=== PATIENT | male | born 1960 | race Caucasian/White ===

== ENCOUNTER 2024-04-01 10:38 | Emergency (ER) | payer OTHER, SELFPAY ==
[2024-04-01 10:45] VITALS: BP 160/100; PULSE 80; TEMP 37; O2SAT 93; BMI 26.4
--- NOTE | 2024-04-01 11:33 | ED_ITS ---
HPI HPI - Neck Pain/Injury General Chief Complaint: Neck Pain/Injury Stated Complaint: NECK PAIN Time Seen by Provider: 04/01/24 11:30 Source: patient Mode of arrival: walk-in Limitations: no limitations History of Present Illness HPI Narrative: 63-year-old male presents to the emergency department for neck pain. Its on the left side and has had it for 4 days. 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 No weakness or numbness in his arms. It hurts more to turn his head towards the left. Related Data Home Medications ?Medication ?Instructions ?Recorded ?Confirmed Unobtainable 04/01/24 04/01/24 Allergies Allergy/AdvReac Type Severity Reaction Status Date / Time No Known Drug Allergies Allergy Verified 04/01/24 10:45 Opioid HPI Opioid Management Most Recent Opioid Data: Last Pain Scale 4 04/01/24 12:20 Last ED Pain Assessment 04/01/24 12:20 Last MAR Pain Assessment 04/01/24 11:54 Review of Systems ROS Narrative A ten point review of systems is negative except as noted above. Exam Narrative Exam Narrative: Nurses note and vital signs reviewed and patient is not hypoxic. General: The patient appears well and in no apparent distress. Patient is resting comfortably on cart. Skin: Warm, dry, no pallor noted. There is no rash noted. Head: Normocephalic, atraumatic; no masses bruising or swelling or rash on his neck. Eye: Normal conjunctiva, no drainage Ears, Nose, Mouth, and Throat: oral mucosa is moist. Nares patent. Cardiovascular: Regular Rate and Rhythm Respiratory: Patient is in no distress, no accessory muscle use, lungs are clear to auscultation, no wheezing, rales or rhonchi Back: non-tender GI: Soft and nontender Musculoskeletal: The patient has no evidence of calf tenderness, no pitting edema, symmetrical pulses noted bilaterally Neurological: Awake and alert Psychiatric: Cooperative Constitutional Vital Signs, click to edit/add: Last Vital Signs Temp 98.6 F 04/01/24 10:45 Pulse 80 04/01/24 10:45 Resp 16 04/01/24 10:45 BP 160/100 H 04/01/24 10:45 Pulse Ox 93 L 04/01/24 10:45 O2 Del Method Room Air 04/01/24 10:45 Course Vital Signs Vital signs: Vital Signs Temperature 98.6 F 04/01/24 10:45 Pulse Rate 80 04/01/24 10:45 Respiratory Rate 16 04/01/24 10:45 Blood Pressure 160/100 H 04/01/24 10:45 Pulse Oximetry 93 L 04/01/24 10:45 Oxygen Delivery Method Room Air 04/01/24 10:45 Temperature 98.6 F 04/01/24 10:45 Pulse Rate 80 04/01/24 10:45 Respiratory Rate 16 04/01/24 10:45 Blood Pressure 160/100 H 04/01/24 10:45 Pulse Oximetry 93 L 04/01/24 10:45 Oxygen Delivery Method Room Air 04/01/24 10:45 MDM - Neck Pain/Injury MDM Narrative Medical decision making narrative: C-spine x-rays show degenerative changes. Findings are discussed with the patient. He was given IM Toradol and Norflex here. His pain seems to be improving. He requested steroids and I do not feel that steroids are indicated for this patient. The patient got upset and he walked out without finishing his care. The intention was to prescribe him anti-inflammatory and muscle relaxer. He is on Suboxone. Differential Diagnosis Differential diagnosis: Likely disc disorder of cervical region, cervical radiculopathy and other (Muscle strain) Imaging Data Cervical spine: Radiologist's impression: ITS Impressions Cervical Spine X-Ray 04/01/24 11:33 IMPRESSION: 1. No appreciable acute abnormality. 2. Moderate degenerative changes of cervical spine. Electronically authenticated by: DORYS JORDAN Date: 04/01/2024 12:11 Discharge Plan Discharge Stand Alone Forms: Portal Instructions Chief Complaint: Neck Pain/Injury Clinical Impression: Strain of neck muscle Patient Disposition: Home, Self-Care Time of Disposition Decision: 12:21 Condition: Good Mode of Transportation: Private Vehicle Prescriptions / Home Meds: No Action Unobtainable Print Language: Turkish Instructions: Cervical Sprain (ED) Referrals: Physician,Non-Staff, MD [Primary Care Provider] - 1 week
--- NOTE | 2024-04-01 11:33 | XR_ITS ---
The [address] [address] Patient Name: AARON OLIVAREZ MRN: [id number] date: 1960 Sex: M Assigned Patient Location: ER Current Patient Location: ER Accession/Order Number: [id number] Exam Date: 04/01/2024 11:45 Report Date: 04/01/2024 12:11 At the request of: ELEANOR BOYD Procedure: XR cervical spine 2-3V EXAMINATION: XR cervical spine 2-3V HISTORY: Atraumatic pain for 4 days ; left side neck pain COMPARISON: No relevant comparison available. FINDINGS: BONES: No fracture, spondylolisthesis, bone lesion. Mild-moderate degenerative facet arthropathy C4-5, C5-6. DISC SPACES: Mild narrowing C2 on 3. Moderate narrowing C3-4, C4-5. PARASPINOUS: Negative. No paraspinous abnormality is seen. OTHER: Negative. XR/XR cervical spine 2-3V IMPRESSION: 1. No appreciable acute abnormality. 2. Moderate degenerative changes of cervical spine. Electronically authenticated by: DORYS JORDAN Date: 04/01/2024 12:11
[2024-04-01] MEDS: ORPHENADRINE 60 MG/ 2 ML VIAL IM (11:54)
[2024-04-01] MEDS: KETOROLAC TROMETHAMINE 60 MG/2 ML VIAL IM (11:54)
== END 2024-04-01 12:26 | disposition home or self-care (01) ==
PROVIDERS: Emergency Provider Emergency Medicine
DX: S16.1XXA Strain of muscle, fascia and tendon at neck level, initial encounter (principal); X58.XXXA Exposure to other specified factors, initial encounter
CPT/HCPCS: 72040; 96372; 99284

== ENCOUNTER 2024-05-01 12:14 | Emergency (ER) | payer MEDICARE, SELFPAY ==
[2024-05-01] VITALS (58 sets, daily range): BP systolic 133–203; BP diastolic 78–103; PULSE 69–102; RESP 16; TEMP 36.4; O2SAT 55–100
--- NOTE | 2024-05-01 12:39 | ECG_ITS ---
The [facility] Test Date: 2024-05-01 Pat Name: AARON OLIVAREZ Department: Room: - Gender: Male Medical Sales Associate: : 1960 Requested By: Order Number: [id number] Reading MD: LEVY SANABRIA Measurements Intervals [place] Rate: 93 P: 85 PA: 158 QRS: 74 QRSD: 80 T: 73 QT: 354 QTc: 405 Interpretive Statements 1100 Sinus rhythm Chronic moderate ST depression, can't exclude inferolateral ischemia 9150 abnormal ECG Electronically Signed On 05-01-2024 22:35:12 EDT by LEVY SANABRIA
--- NOTE | 2024-05-01 12:39 | XR_ITS ---
The [address] [address] Patient Name: AARON OLIVAREZ MRN: [id number] date: 1960 Sex: M Assigned Patient Location: ED.MAIN Current Patient Location: ER Accession/Order Number: [id number] Exam Date: 05/01/2024 13:40 Report Date: 05/01/2024 14:14 At the request of: REZA BARR Procedure: XR chest 1V EXAMINATION: XR chest 1V HISTORY: shortness of breath COMPARISON: XR chest 10/06/2021 FINDINGS: LUNGS: Underexpanded lungs with mild stranding within lung bases. VASCULATURE: No increased pulmonary vasculature. PLEURA: No pneumothorax, effusion, or pleural thickening. CARDIAC: No cardiomegaly or cardiac silhouette abnormality. MEDIASTINUM: No visible mass or adenopathy. BONES: No fracture or visible bone lesion. OTHER: Negative. XR/XR chest 1V IMPRESSION: 1. Trace amount of bibasilar atelectasis versus infiltrates. Electronically authenticated by: DORYS JORDAN Date: 05/01/2024 14:14
--- OUTSIDE RECORDS SUMMARY | 2024-05-01 12:40 | XMS_ITS | CCD ---
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 10-04-20 17 Discharge Summary [id number] Admitted: 10/01/2017 Discharged: 10/03/2017 Date of : 1960 Physician: Vu Jimenes M.D. DISCHARGE SUMMARYCHIEF COMPLAINT: Opioid use.HISTORY OF PRESENT ILLNESS: The patient is a 57-year-old male[facility] use. The patientadmitted to using around dollar 100 worth for heroin on a daily basis bysnorting it. Reported significant tolerance withdrawal symptoms over theyears with multiple unsuccessful attempts to cutdown or stop using drugs.Report significant time spent in getting drugs, using drugs, and recoveringfrom the effect of drugs.COURSE IN THE HOSPITAL: Reported withdrawal symptoms, which includedmuscle aches, diarrhea, abdominal cramps, nausea, hot sweats, cold sweats,chills. Responded well to Suboxone and withdrawal symptoms seem moremanageable. During stay in hospital, underwent psychiatric evaluation,medical consultation, attended individual therapy and groups. Labs done.Results shared with the patient. No acute psychiatric or medical emergencyseen during hospital stay.FINAL MENTAL STATUS EXAMINATION: The patient reported to be calm,cooperative. Gait, stable. Speech coherent. Mood euthymic. Affect,appropriate. Thought process and content okay. No evidence of anypsychosis or current suicidal or homicidal ideation.DISCHARGE DIAGNOSIS: Opioid use disorder.MEDICATION ON DISCHARGE: Suboxone 16/4 mg in the morning, a 10-day supply,no refill.The patient made aware of high risk of relapse after discharge from detox,especially if outpatient treatment is lacking. Given all assistance tosocial work to make followup appointments.Electronically Signed by:Vu Jimenes M.D. 10/16/2017 08:49 A Vu Jimenes M.D.Date Dict: 10/03/2017/04:30 P/Vu Jimenes M.D.Date Trans: 10/04/2017 12:30 [id number] Normal [facility] CHOLESTEROL BLOODon 10-02-20 17 Cholesterol 187 mg/dL Normal 120-200 [facility] Comment on above: Order Comment: No: D o not add to previous draw Result Comment: CHOL ESTEROL REFERENCE RANGE:20 YEARS AND OLDER CARDIOVASCULAR RISKLess than 200 mg/dl Low Xiqw755 to 239 mg/dl Borderline Erxj541 mg/dl and greater High Risk Performed By: #### 2 9773, [address], [address], [address], [address], [address], [address] ####[facility] [facility] Coding Summaryon 10-02-2017 Coding Summary CODING DATE: 017 FINAL [facility] STATUS: Home PAYOR: Medicare APC DESCRIPTION 5023 Level 3 Type A ED Visits ADMIT DX: REASON FOR VISIT DX: F11.23 Opioid dependence with withdrawal FINAL DX: PRINCIPAL: F11.23 Opioid dependence with withdrawal SECONDARY: PYMT PROC APC STAT DESCRIPTION DOCTOR NAME DATE NOTE: The code number assigned matches the documented diagnosis and / or procedure in the patient's chart. However, the narrative phrase printed from the coding software may appear abbreviated, or result in slightly different terminology. Revised Coded By: Prasanth Yen' Revised Date Saved: 10/02/2017 01:29 pm Normal [facility] TOX PANEL URINEon 10-02-2017 50 THC Negative Normal NEGATIVE [facility] Comment on above: Order Comment: No: D o not add to previous drawNo collection time noted on specimen or requisition. The collection timerecorded is the time of receipt in the lab. Performed By: #### 3 1079 ####[facility] [place] [address], [facility] BARBITURATES Negative Normal NEGATIVE [facility] Comment on above: Order Comment: No: D o not add to previous drawNo collection time noted on specimen or requisition. The collection timerecorded is the time of receipt in the lab. Performed By: #### 3 1079 ####[facility] [place] [address], [facility] MONO AMPHET Negative Normal NEGATIVE [facility] Comment on above: Order Comment: No: D o not add to previous drawNo collection time noted on specimen or requisition. The collection timerecorded is the time of receipt in the lab. Performed By: #### 3 1079 ####[facility] [place] [address], [facility] PROPOXYPHENE Negative Normal NEGATIVE [facility] Comment on above: Order Comment: No: D o not add to previous drawNo collection time noted on specimen or requisition. The collection timerecorded is the time of receipt in the lab. Performed By: #### 3 1079 ####[facility] [place] [address], [facility] TRICYCLICS Negative Normal NEGATIVE [facility] Comment on above: Order Comment: No: D o not add to previous drawNo collection time noted on specimen or requisition. The collection timerecorded is the time of receipt in the lab. Performed By: #### 3 1079 ####[facility] [place] [address], [facility] Urine, benzodiazepines presence Negative Normal NEGATIVE [facility] Comment on above: Order Comment: No: D o not add to previous drawNo collection time noted on specimen or requisition. The collection timerecorded is the time of receipt in the lab. Performed By: #### 3 1079 ####[facility] [place] [address], [facility] Urine, cocaine presence Positive Abnormal NEGATIVE [facility] Comment on above: Order Comment: No: D o not add to previous drawNo collection time noted on specimen or requisition. The collection timerecorded is the time of receipt in the lab. Performed By: #### 3 1079 ####[facility] [place] [address], [place] Urine, methadone presence Negative Normal NEGATIVE [facility] Comment on above: Order Comment: No: D o not add to previous drawNo collection time noted on specimen or requisition. The collection timerecorded is the time of receipt in the lab. Performed By: #### 3 1079 ####[facility] [facility] [place] [address], [facility] Urine, opiates presence Positive Abnormal NEGATIVE [facility] Comment on above: Order Comment: No: D o not add to previous drawNo collection time noted on specimen or requisition. The collection timerecorded is the time of receipt in the lab. Performed By: #### 3 1079 ####[facility] [place] [address], [facility] Urine, phencyclidine presence Negative Normal NEGATIVE [facility] Comment on above: Order Comment: No: D o not add to previous drawNo collection time noted on specimen or requisition. The collection timerecorded is the time of receipt in the lab. Performed By: #### 3 1079 ####[facility] [place] [address], [facility] UA,MICROSCOPIC REQUIREDon Bilirubin (total) Negative Normal NEGATIVE [facility] Comment on above: Order Comment: No: D o not add to previous drawNo collection time noted on specimen or requisition. The collection timerecorded is the time of receipt in the lab. Performed By: #### 9 0150 ####[facility] [place] [address], [facility] BLOOD Negative Normal NEGATIVE [facility] Comment on above: Order Comment: No: D o not add to previous drawNo collection time noted on specimen or requisition. The collection timerecorded is the time of receipt in the lab. Performed By: #### 9 0150 ####[facility] [place] [address], [facility] Calcium MANY Abnormal NONE SEEN [facility] Comment on above: Order Comment: No: D o not add to previous drawNo collection time noted on specimen or requisition. The collection timerecorded is the time of receipt in the lab. Performed By: #### 9 0150 ####[facility] [place] [address], [facility] Glucose mass conc 50 mg/dL Abnormal NEGATIVE [facility] Comment on above: Order Comment: No: D o not add to previous drawNo collection time noted on specimen or requisition. The collection timerecorded is the time of receipt in the lab. Performed By: #### 9 0150 ####[facility] [place] [address], [facility] KETONE Negative Normal NEGATIVE [facility] Comment on above: Order Comment: No: D o not add to previous drawNo collection time noted on specimen or requisition. The collection timerecorded is the time of receipt in the lab. Performed By: #### 9 0150 ####[facility] [place] [address], [facility] LEUK WESTLEY Negative Normal NEGATIVE [facility] Comment on above: Order Comment: No: D o not add to previous drawNo collection time noted on specimen or requisition. The collection timerecorded is the time of receipt in the lab. Performed By: #### 9 0150 ####[facility] [place] [address], [facility] MUCUS THREADS FEW Abnormal NONE SEEN [facility] Comment on above: Order Comment: No: D o not add to previous drawNo collection time noted on specimen or requisition. The collection timerecorded is the time of receipt in the lab. Performed By: #### 9 0150 ####[facility] [place] [address], [facility] pH of blood 5.0 [pH] Normal 5.0-8.0 [facility] Comment on above: Order Comment: No: D o not add to previous drawNo collection time noted on specimen or requisition. The collection timerecorded is the time of receipt in the lab. Performed By: #### 9 0150 ####[facility] [place] [address], [facility] Protein Negative Normal NEGATIVE [facility] Comment on above: Order Comment: No: D o not add to previous drawNo collection time noted on specimen or requisition. The collection timerecorded is the time of receipt in the lab. Performed By: #### 9 0150 ####[facility] [place] [address], [facility] SPEC GRAV 1.024 High 1.015-1.020 [facility] Comment on above: Order Comment: No: D o not add to previous drawNo collection time noted on specimen or requisition. The collection timerecorded is the time of receipt in the lab. Performed By: #### 9 0150 ####[facility] [place] [address], [facility] Urine, appearance CLEAR Normal CLEAR [facility] Comment on above: Order Comment: No: D o not add to previous drawNo collection time noted on specimen or requisition. The collection timerecorded is the time of receipt in the lab. Performed By: #### 9 0150 ####[facility] [place] [address], [facility] Urine, color YELLOW Normal YELLOW [facility] Comment on above: Order Comment: No: D o not add to previous drawNo collection time noted on specimen or requisition. The collection timerecorded is the time of receipt in the lab. Performed By: #### 9 0150 ####[facility] [place] [address], [facility] Urine, nitrite presence Negative Normal NEGATIVE [facility] Comment on above: Order Comment: No: D o not add to previous drawNo collection time noted on specimen or requisition. The collection timerecorded is the time of receipt in the lab. Performed By: #### 9 0150 ####[facility] [place] [address], [facility] WBC UA 0-2 Abnormal 0-0 [facility] Comment on above: Order Comment: No: D o not add to previous drawNo collection time noted on specimen or requisition. The collection timerecorded is the time of receipt in the lab. Performed By: #### 9 0150 ####[facility] [place] [address], [facility] ACETAMINOPHENon 10-01-2017 Acetaminophen mass conc <10 Low 10-30 [facility] Comment on above: Order Comment: No: D o not add to previous draw Performed By: #### 2 9773, 46339, 417[address], , 39103, 25699, [address] ####[facility] BASIC METABOLIC PANELon 09-13 Calcium 9.3 mg/dL Normal 8.6-10.3 [facility] Comment on above: Order Comment: No: D o not add to previous draw Performed By: #### 2 9773, 06597, 85562, 64859, 82252, 84621, 44[address] ####[facility] [place] [address], [facility] Chloride 104 mmol/L Normal 98-107 [facility] Comment on above: Order Comment: No: D o not add to previous draw Performed By: #### 2 9773, 61647, 25790, 43120, 23548, 81472, 398[address] ####[facility] [place] [address], [facility] CO2 25 mmol/L Normal 21-31 [facility] Comment on above: Order Comment: No: D o not add to previous draw Performed By: #### 2 9773, 32767, 73442, 95910, 64908, 55071, 65292 ####[facility] [place] [address], [facility] Creatinine 0.97 mg/dL Normal 0.70-1.30 [facility] Comment on above: Order Comment: No: D o not add to previous draw Performed By: #### 2 9773, 89258, 23637, 58744, 45749, 97615, 96259 ####[facility] eGFR (black) mL/min/{1.73_m2} Normal >60 [facility] Comment on above: Order Comment: No: D o not add to previous draw Performed By: #### 2 9773, 33762, 31335, , 39369, 75998, 93120 ####[facility] eGFR (non-black) mL/min/{1.73_m2} Normal >60 [facility] Comment on above: Order Comment: No: D o not add to previous draw Performed By: #### 2 9773, 96694, 26474, , 67356, 69496, 98081 ####[facility] Glucose mass conc 73 mg/dL Normal 70-100 [facility] Comment on above: Order Comment: No: D o not add to previous draw Performed By: #### 2 9773, 04998, 11208, , 85339, 25572, 89694 ####[facility] [place] [address], [facility] Potassium molar conc 3.8 mmol/L Normal 3.5-5.1 [facility] Comment on above: Order Comment: No: D o not add to previous draw Performed By: #### 2 9773, 26526, 05647, , 33835, 93683, 18126 ####[facility] [place] [address], [facility] Sodium 136 mmol/L Normal 136-145 [facility] Comment on above: Order Comment: No: D o not add to previous draw Performed By: #### 2 9773, 66887, 19939, , 53518, 28723, 21889 ####[facility] [address] Urea nitrogen 14 mg/dL Normal 7-25 [facility] Comment on above: Order Comment: No: D o not add to previous draw Performed By: #### 2 9773, 72174, 79148, 21781, 40256, 28194, 90318 ####[facility]3000 [facility].[address] CBC W/DIFFon 10-01-2017 Basophils Auto #/vol (Bld) 0.4 % Normal 0.0-2.0 [facility] Comment on above: Order Comment: No: D o not add to previous draw Performed By: #### 5 0103 ####[address] Eosinophils/100 leukocytes 1.0 % Normal 0.0-5.0 [facility] Comment on above: Order Comment: No: D o not add to previous draw Performed By: #### 5 0103 ####[place] [address] [facility].[address] Erythrocyte distribution width Auto Ratio (RBC) 13.8 % Normal 11.5-16.9 [facility] Comment on above: Order Comment: No: D o not add to previous draw Performed By: #### 5 0103 ####[place] [address] [facility].[address] Erythrocytes (RBC) 4.94 mill/mm3 Normal 4.30-5.90 [facility] Comment on above: Order Comment: No: D o not add to previous draw Performed By: #### 5 0103 ####[address] Hematocrit (HCT) 43.7 % Normal 39.0-55.0 [facility] Comment on above: Order Comment: No: D o not add to previous draw Performed By: #### 5 0103 ####[address] Hemoglobin mass conc (Bld) 14.6 g/dL Normal 13.9-16.3 [facility] Comment on above: Order Comment: No: D o not add to previous draw Performed By: #### 5 0103 ####[facility] [place] [address], [facility] Lymphocytes/100 leukocytes 24.9 % Normal 20.0-40.0 [facility] Comment on above: Order Comment: No: D o not add to previous draw Performed By: #### 5 0103 ####[facility] MCH 29.7 pg Normal 24.0-32.0 [facility] Comment on above: Order Comment: No: D o not add to previous draw Performed By: #### 5 0103 ####[facility]3000 [facility].[address] MCHC mass conc (RBC) 33.5 g/dL Normal 32.0-36.0 [facility] Comment on above: Order Comment: No: D o not add to previous draw Performed By: #### 5 0103 ####[facility]3000 [facility].[address] MCV 88.5 fL Normal 80.0-100.0 [facility] Comment on above: Order Comment: No: D o not add to previous draw Performed By: #### 5 0103 ####[facility]3000 [place] [address], [facility] METHOD Normal RBC Morphology Normal [facility] Comment on above: Order Comment: No: D o not add to previous draw Performed By: #### 5 0103 ####[facility] [place] [address], [facility] MONOS 8.0 % Normal 2-8 [facility] Comment on above: Order Comment: No: D o not add to previous draw Performed By: #### 5 0103 ####[facility] [place] [address], [facility] Neutrophils/100 leukocytes 65.7 % Normal 50-70 [facility] Comment on above: Order Comment: No: D o not add to previous draw Performed By: #### 5 0103 ####[facility] [place] [address], [facility] PLAT CNT 277 Thou/mm3 Normal 100-400 [facility] Comment on above: Order Comment: No: D o not add to previous draw Performed By: #### 5 0103 ####[facility] [place] [address], [facility] WBC (Leukocytes) 7.0 Thou/mm3 Normal 4.0-10.0 [facility] Comment on above: Order Comment: No: D o not add to previous draw Performed By: #### 5 0103 ####[facility] [place] [address], [facility] GAMMA GT BLOODon 10-01-2017 GAMMA GT 30 IU/L Normal 9-64 [facility] Comment on above: Order Comment: No: D o not add to previous draw Performed By: #### 2 9773, 84272, 31084, , 92729, 14878, 14513 ####[facility] [place] [address], [facility] LIVER BATTERYon 10-01-2017 Alanine aminotransferase (ALT) 21 U/L Normal 7-52 [facility] Comment on above: Order Comment: No: D o not add to previous draw Performed By: #### 2 9773, 95578, 81036, , 27664, 01102, 65060 ####[facility] [place] [address], [facility] Albumin 4.1 g/dL Normal 3.5-5.7 [facility] Comment on above: Order Comment: No: D o not add to previous draw Performed By: #### 2 9773, 03993, 75119, , 45547, 35556, 44149 ####[facility] [place] [address], [facility] ALKALINE PHOSPH 78 IU/L Normal 34-104 [facility] Comment on above: Order Comment: No: D o not add to previous draw Performed By: #### 2 9773, 31461, 28171, , 50822, 85291, 95162 ####[facility] [facility] [address], [facility] Aspartate aminotransferase (AST) 17 U/L Normal 13-39 [facility] Comment on above: Order Comment: No: D o not add to previous draw Performed By: #### 2 9773, 40937, 59324, , 04333, 85170, 19324 ####[facility] [place] [address], [facility] Bilirubin (direct) 0.1 mg/dL Normal 0.0-0.2 [facility] Comment on above: Order Comment: No: D o not add to previous draw Performed By: #### 2 9773, 55349, 42652, , 33008, 42241, 50394 ####[facility] [place] [address], [facility] Bilirubin (total) 0.4 mg/dL Normal 0.3-1.0 [facility] Comment on above: Order Comment: No: D o not add to previous draw Performed By: #### 2 9773, 06083, 56899, , 63037, 91964, 30341 ####[facility] [place] [address], [facility] Protein 6.6 g/dL Normal 6.0-8.3 [facility] Comment on above: Order Comment: No: D o not add to previous draw Performed By: #### 2 9773, 79558, 38870, , 14244, 09439, 10454 ####[facility]3000 [facility].[address] MAGNESIUM BLOODon 10-01-2017 Magnesium 2.0 mg/dL Normal 1.9-2.7 [facility] Comment on above: Order Comment: No: D o not add to previous draw Performed By: #### 2 9773, 38735, 34847, , 70658, 96867, 47277 ####[facility].[address] RPR (RAPID PLASMA REAGIN)on 10-01-2017 Reagin antibody presence NON-REACTIVE Normal NON-REACTIVE [facility] Comment on above: Performed By: #### 2 9773, 14028, 74822, , 07692, 33792, 57415 ####[facility]3000 [facility].[address] TSHon 10-01-2017 Thyroid stimulating hormone (TSH) 3.80 MICRO-IU/ML Normal 0.34-5.60 [facility] Comment on above: Order Comment: No: D o not add to previous draw Performed By: #### 2 9773, 09852, 28090, , 82390, 65602, 07023 ####[facility]3000 [facility].[address] URIC ACID BLOODon 10-01-2017 Urate 5.0 mg/dL Normal 4.4-7.6 [facility] Comment on above: Order Comment: No: D o not add to previous draw Performed By: #### 2 9773, 89236, 12002, , 57845, 61656, 76538 ####[facility]3000 [facility].[address] ED Clinical Summaryon 2016 ED Clinical Summary [facility] Emergency [address] [place], [place] [id number] ED Clinical SummaryPERSON INFORMATIONName: JUANIS, AARON NICOLÁS Age: 57 Years Sex: MALEDOB: [birth year] MRN: Acct#:Visit Reason: Drug withdrawal; OPIATE WITHDRAWAL Arrival:09/29/17 13:22:00 Discharge: 09/29/17 14:10:00LOS: 000 00:48 Check In: 09/29/17 13:22:00 Checkout:09/29/17 14:10:00Address:[address] [place] [id number]: Provider, NonePROVIDER INFORMATIONProvider Role Assigned UnassignedDonna Gallardo ED PA 09/29/17 13:27:36Mell Cardenas RN ED Nurse 09/29/17 13:45:03VITALS INFORMATIONVital Sign Triage LatestTemperature TympanicTemperature Temporal ArteryPulse Rate 72 bpm 72 bpmO2 Sat 99 % 99 %Respiratory Rate 18 br/min 18 br/minBlood Pressure 159 mmHg/101 mmHg 159 mmHg/101 mmHgMEDICAL INFORMATIONMedications Given:Medication Dose Routeclonidine 0.2 mg Transdermallorazepam 1 mg POAllergy Information:No Known Medication AllergiesPHYSICIAN DOCUMENTATIONPatient: AARON TRUJILLO : 57 years Sex: MALE : 56Associated Diagnoses: Methadone withdrawalAuthor: Jesenia Gallardo InformationTime seen: Date & time 09/29/17 13:27:00.History source: Patient.Arrival mode: Private vehicle.History limitation: None.Additional information: Chief Complaint from Nursing Triage Note : Chief Buaejmlio49/17/17 13:24 EST Chief Complaint Pt says he has been on Methadone for a year and quit 2 weeks ago and now has body aches, shaky, irritability. .History of Present [id number]-[id number]-xkw male presents to the emergency department complaining off of opiate withdrawal. 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 He had been being prescribed Suboxone initially and then was switched to methadone. 2 weeks ago he decided he did not want to take the medication any longer. He's not had any methadone for 12 days. He was receiving methadone from the [facility]. He is requesting assistance with this withdrawal symptoms. Patient is complaining of irritability and agitation. He also has insomnia and generalized body aches. He currently denies any nausea, vomiting or diarrhea.Review of SystemsConstitutional symptoms: No fever, no chills, no weakness, no decreased activity.Skin symptoms: No rash, no abrasions, no breakdown.Eye symptoms: Negative except as documented in HPI.ENMT symptoms: No ear pain, no sore throat, no nasal congestion, no sinus pain.Respiratory symptoms: No shortness of breath, no cough, no stridor, no wheezing.Cardiovascular symptoms: No chest pain, no palpitations, no tachycardia, no syncope, no diaphoresis.Gastrointestinal symptoms: No abdominal pain, no nausea, no vomiting, no diarrhea, no constipation.Genitourinary symptoms: No dysuria, no hematuria.Musculoskeletal symptoms: Muscle pain.Neurologic symptoms: No headache, no dizziness, no altered level of consciousness, no numbness, no tingling, no weakness.Psychiatric symptoms: Anxiety, sleeping problems.Endocrine symptoms: Negative except as documented in HPI.Hematologic/Lymphatic symptoms: Negative except as documented in HPI.Allergy/immunologic symptoms: No seasonal allergies, no food allergies, no recurrent infections. Additional review of systems information: All other systems reviewed and otherwise negative.Health StatusAllergies:No active allergies have been recorded..Past Medical/ Family/ Social HistoryMedical history:No active or resolved past medical history items have been selected or recorded..Surgical history:No active procedure history items have been selected or recorded..Family history:No family history items have been selected or recorded..Social history:Social & Psychosocial HabitsNo Data Available.Problem list:No qualifying data available.Physical Examination Vital SignsVital Signs09/29/17 13:24 EST Temperature Temporal 36.5 DegC Peripheral Pulse Rate 72 bpm Respiratory Rate 18 br/min Systolic Blood Pressure 159 mmHg HI Diastolic Blood Pressure 101 mmHg HI SpO2 99 % Oxygen Therapy Room air.General: Alert, no acute distress, anxious, On initial exam, patient is sitting upright on the cart with his legs over the side. His legs are continually shaking. He has bilateral hand tremors noted. He seems to be unable to sit still..Skin: Warm, dry, pink, intact.Head: Normocephalic, atraumatic.Neck: Supple, trachea midline.Eye: Pupils are equal, round and reactive to light, normal conjunctiva.Ears, nose, mouth and throat: Oral mucosa moist.Cardiovascular: Regular rate and rhythm, No murmur, Normal peripheral perfusion.Respiratory: Lungs are clear to auscultation, respirations are non-labored, breath sounds are equal, Symmetrical chest wall expansion.Gastrointestinal: Soft, Nontender, Non distended, Normal bowel sounds.Back: Nontender, Normal range of motion, Normal alignment.Musculoskeletal: Normal ROM, normal strength, no tenderness.Neurological: Alert and oriented to person, place, time, and situation, normal motor observed, normal speech observed, normal coordination observed.Psychiatric: Cooperative, appropriate mood & affect.Medical Decision MakingDifferential Diagnosis: Methadone withdrawal.Documents reviewed: Emergency department nurses' notes.Orders Launch OrdersPatient Care:clonidine 0.2 mg/24 hr pach removal (Order): clonidine 0.2 mg/24 hr pach removal, 10/06/17 13:36 EST, [id number]:cloNIDine 0.2 mg/24 hr patch, extended release (Order): 1 patch(es), TD, q7day, Launch OrdersPharmacy:Ativan (Order): 1 mg, PO, Once.Impression and PlanDiagnosisMethadone withdrawal ([id number] F11.23, Discharge, Medical)PlanCondition: Stable.Disposition: Discharged: Time 09/29/17 13:47:00, to home.Patient was given the following educational materials: Opioid Withdrawal, Opioid Withdrawal, Opioid Withdrawal.Follow up with: [facility] 09/29/2017 2:30 PM [address] [facility] [phone] at 2:30 todayMust take your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
[2024-05-01] MEDS: 0.9 % SODIUM CHLORIDE 1,000 ML 1000 ML IV (12:50)
[2024-05-01] MEDS: DEXAMETHASONE SOD PHOS 10 MG/ML VIAL IV (12:51)
--- NOTE | 2024-05-01 12:53 | PC.NURSE ---
resp at bedside
--- NOTE | 2024-05-01 12:55 | PC.NURSE ---
resp at bedside to start vapotherm.
[2024-05-01] MEDS: IPRATROPIUM/ALBUTEROL SULFATE 3 ML AMPUL.NEB IH (13:07)
[2024-05-01] MEDS: PIPERACILLIN SODIUM/TAZOBACTAM 3.375 GM in 0.9 % SODIUM CHLORIDE 50 ML IV (13:13)
[2024-05-01 13:17] LABS: Basophils Percent Auto 0.1 % (0.2-2.0); Eosinophils Percent Auto 0.1 % (0.9-7.0); Hematocrit 40.6 % (42.0-54.0); Hemoglobin 13.2 g/dL (14.0-18.0); Immature Granulocytes Abs Auto 0.09 10^3/uL (0.00-0.03); Immature Granulocytes Pct Auto 0.9 % (0.0-0.5); Lymphocytes Absolute Auto 0.7 10^3/uL (1.2-3.8); Lymphocytes Percent Auto 6.9 % (20.5-60.0); Mean Corpuscular HGB Conc 32.5 g/dL (29.9-35.2); Mean Corpuscular Hemoglobin 29.3 pg (25.9-34.0); Mean Corpuscular Volume 90.2 fL (80.0-94.0); Mean Platelet Volume 8.6 fL (9.5-13.5); Monocytes Absolute Auto 0.5 10^3/uL (0.3-0.8); Monocytes Percent Auto 5.2 % (1.7-12.0); Neutrophils Percent Auto 86.8 % (43.0-75.0); Platelet Count 268 10^3/uL (150-450); Red Cell Distribution Width 15.3 % (11.0-15.0); White Blood Count 10.4 10^3/uL (4.0-11.0); pH VBG 7.327 (7.330-7.430)
[2024-05-01 13:18] LABS: PCO2 VBG 80.9 mmHg (40.0-52.0)
--- NOTE | 2024-05-01 13:21 | PC.NURSE ---
vapotherm on 40L at 60%
[2024-05-01 13:39] LABS: Lactate/Lactic Acid 0.9 mmol/L (0.4-2.0)
--- NOTE | 2024-05-01 14:00 | ED_ITS ---
HPI - SOB/Dyspnea General Chief Complaint: Shortness of Breath/Dyspnea Stated Complaint: WEAKNESS, CONFUSION Time Seen by Provider: 05/01/24 12:27 Source: patient Mode of arrival: Wheelchair History of Present Illness HPI Narrative: Patient presents to ED complaining of not feeling well over the past week or week and a half. He presented complaining of anxiety but was found to be hypoxic in the 70s on room air. He states he does have a history of COPD. He was placed on oxygen immediately. Respiratory was called down and he is wheezing, with a DuoNeb and ABG was ordered right away. Family who is with him states that sleepy and kind of falling asleep in front of them more often than normal over the past week or so. Patient reports some redness and pain in both feet mostly the right big toe but also the left second toe. They are concerned about a possible blood infection. Patient states he is not diabetic. He denies chest pain but does report shortness of breath and wheezing and lethargy. Patient is answering most questions appropriately Moderate respiratory distress Related Data Home Medications ?Medication ?Instructions ?Recorded ?Confirmed Unobtainable 04/01/24 04/01/24 Allergies Allergy/AdvReac Type Severity Reaction Status Date / Time No Known Drug Allergies Allergy Verified 04/01/24 10:45 Review of Systems ROS Status of ROS 10 or more systems reviewed and unremark able except as noted in history and below Exam Narrative Exam Narrative: Time Seen: [] Vital Signs: [Per nurse's notes.] General: [Alert]Moderate respiratory distress Skin: [Warm, dry, no rash.]Erythema on the right great toe with ulcer, erythema on the left second toe with ulcer and tenderness to palpation of both Head: [Normocephalic, atraumatic.] Neck: [Supple, trachea midline.] Eye: [Pupils are equal, round and reactive to light, extraocular movements are intact, normal conjunctiva.] Ears, nose, mouth and throat: oral mucosa moist. Cardiovascular: [Regular rate and rhythm, no murmur.] Respiratory: [Wheezing and diminished breath sounds bilaterally worse on the left Chest wall: [No tenderness, no deformity.] Gastrointestinal: [Soft, nontender, non distended, normal bowel sounds.] MSK: 5 out of 5 muscle strength x 4 extremities no calf pain or edema Lymphatics: [No lymphadenopathy.] Psychiatric: [Cooperative, appropriate mood & affect.] Neurological: [Alert and oriented to person, place, time, and situation, no focal neurological deficit observed.] Constitutional Vital Signs, click to edit/add: Last Vital Signs Temp 97.6 F 05/01/24 12:26 Pulse 70 05/01/24 16:30 Resp 16 05/01/24 16:30 BP 155/84 H 05/01/24 15:29 Pulse Ox 94 L 05/01/24 16:30 O2 Del Method Vapotherm 05/01/24 16:28 O2 Flow Rate 40 05/01/24 16:28 FiO2 60 05/01/24 16:28 Course Vital Signs Vital signs: Vital Signs Pulse Oximetry 56 L 05/01/24 12:25 Temperature 97.6 F 05/01/24 12:26 Pulse Rate 70 05/01/24 16:30 Respiratory Rate 16 05/01/24 16:30 Blood Pressure 155/84 H 05/01/24 15:29 Pulse Oximetry 94 L 05/01/24 16:30 Oxygen Delivery Method Vapotherm 05/01/24 16:28 Oxygen Delivery Flow Rate 40 05/01/24 16:28 Fraction of Inspired Oxygen 60 05/01/24 16:28 MDM - SOB/Dyspnea MDM Narrative Medical decision making narrative: Patient's troponin came back elevated. Chest x-ray shows bilateral atelectasis versus infiltrates. Patient has a terrible cough and thick mucus which was sent down for a sputum culture. Patient's D-dimer was elevated and a CT angio was ordered. Patient is doing better on Vapotherm, repeat ABG is pending. Patient will be admitted over to [facility] and was excepted by Dr. Hill. We do not have cardiology here today and with the elevated troponin and shortness of breath we wanted him at an higher acute care center. Patient will be admitted to ICU over at [facility]. He was given vancomycin and Zosyn here for cellulitis and pneumonia. Lactate came back normal. Patient was also given steroids and DuoNeb which did seem to help. Differential Diagnosis Differential diagnosis: Likely acute exacerbation of chronic obstructive airways disease, congestive heart failure, community acquired pneumonia and other (Cellulitis) Medical Records Attestation: I reviewed the patient's medical records. Lab Data Attestation: I reviewed the patient's lab results. Labs: Lab Results 05/01/24 05/01/24 05/01/24 Range/Units 13:00 15:59 16:36 WBC 10.4 (4.0-11.0) 10^3/uL RBC 4.50 L (4.70-6.10) 10^6/uL Hgb 13.2 L (14.0-18.0) g/dL Hct 40.6 L (42.0-54.0) % MCV 90.2 (80.0-94.0) fL MCH 29.3 (25.9-34.0) pg MCHC 32.5 (29.9-35.2) g/dL RDW 15.3 H (11.0-15.0) % Plt Count 268 (150-450) 10^3/uL MPV 8.6 L (9.5-13.5) fL Neut % (Auto) 86.8 H (43.0-75.0) % Lymph % (Auto) 6.9 L (20.5-60.0) % [place] % (Auto) 5.2 (1.7-12.0) % Eos % (Auto) 0.1 L (0.9-7.0) % Baso % (Auto) 0.1 L (0.2-2.0) % Neut # (Auto) 9.0 H (1.4-6.5) 10^3/uL Lymph # (Auto) 0.7 L (1.2-3.8) 10^3/uL [place] # (Auto) 0.5 (0.3-0.8) 10^3/uL Eos # (Auto) 0.0 (0.0-0.7) 10^3/uL Baso # (Auto) 0.0 (0.0-0.1) 10^3/uL Abs Immat Gran (auto) 0.09 H (0.00-0.03) 10^3/uL Imm/Tot Granulo (auto) 0.9 H (0.0-0.5) % D-Dimer 0.63 H* (<=0.59) mg/L FEU VBG pH 7.327 L (7.330-7.430) VBG pCO2 80.9 H* (40.0-52.0) mmHg Sodium 128 L (136-145) mmol/L Potassium 4.2 (3.5-5.1) mmol/L Chloride 88 L (98-107) mmol/L Carbon Dioxide 40.2 H (21.0-32.0) mmol/L Anion Gap 4.0 BUN 23.0 H (7.0-18.0) mg/dL Creatinine 0.93 (0.70-1.30) mg/dL Est GFR ( Amer) >60 (>=60) Est GFR (Non-Af Amer) >60 (>=60) BUN/Creatinine Ratio 24.7 Glucose 128 H (74-106) mg/dL Lactate 0.9 (0.4-2.0) mmol/L Calcium 8.8 (8.5-10.1) mg/dL Total Bilirubin 0.4 (0.2-1.0) mg/dL AST 19 (15-37) U/L ALT 29 (16-63) U/L Alkaline Phosphatase 169 H (46-116) U/L Troponin I High Sens 202.4 H* 210.8 H* (4.0-76.1) pg/mL Total Protein 6.6 (6.4-8.2) g/dL Albumin 2.6 L (3.4-5.0) g/dL Globulin 4.0 g/dL Albumin/Globulin Ratio 0.7 Urine Color Lt. yellow (YELLOW) Urine Clarity Clear (CLEAR) Urine pH 6.0 (5.0-9.0) Ur Specific [place] 1.010 (1.005-1.025) Urine Protein Negative (NEG/TRACE) mg/dL Urine Glucose (UA) Negative (NEGATIVE) mg/dL Urine Ketones Negative (NEGATIVE) mg/dL Urine Occult Blood Negative (NEGATIVE) Urine Nitrite Negative (NEGATIVE) Urine Bilirubin Negative (NEGATIVE) Urine Urobilinogen 0.2 (0.2-1.0) EU/dL Ur Leukocyte Esterase Negative (NEGATIVE) Imaging Data Chest x-ray: Radiologist's impression: ITS Impressions Chest X-Ray 05/01/24 12:39 IMPRESSION: 1. Trace amount of bibasilar atelectasis versus infiltrates. Electronically authenticated by: DORYS JORDAN Date: 05/01/2024 14:14 ECG Data Attestation: I personally reviewed and interpreted this ECG as follows: Interpretation: EKG INTERPRETATION Time: []1231 Rate: []93 Rhythm: _ []Normal sinus rhythm ST segments: _ []No acute ST elevation or depression T waves: _ [] Ectopy: _ [] P wave/CO interval: _ [] QRS interval: _ [] QT interval: _ [] Comparison: _ [] Comparison EKG date: [] Performed by: [self] Smoking Cessation Time spent discussing smoking cessation with patient: 3 to 10 minutes Patient Acknowledges Need for Cessation: Yes Critical Care Time Critical Care Time Critical Care Time: Yes Total Critical Care Time: 89 Attestation: Hypoxia respiratory distress high flow oxygen and respiratory support CO2 retention altered mental status Discharge Plan Discharge Chief Complaint: Shortness of Breath/Dyspnea Clinical Impression: Community acquired pneumonia, CO2 retention, COPD (chronic obstructive pulmonary disease), Elevated troponin, Hypoxia Patient Disposition: [facility] Time of Disposition Decision: 17:02 Discharge Location: [facility] Discharge location: ICU [facility] Condition: Serious Mode of Transportation: EMS
[2024-05-01] MEDS: VANCOMYCIN HCL 1,000 MG in 0.9 % SODIUM CHLORIDE 250 ML 250 MG IV (14:15)
[2024-05-01 15:12] LABS: Carbon Dioxide 40.2 mmol/L (21.0-32.0); Chloride 88 mmol/L (98-107); Glucose 128 mg/dL (74-106); Potassium 4.2 mmol/L (3.5-5.1); Sodium 128 mmol/L (136-145)
[2024-05-01 15:13] LABS: Aspartate Amino Transferase 19 U/L (15-37); BUN Creatinine Ratio 24.7; Bilirubin Total 0.4 mg/dL (0.2-1.0); Calcium 8.8 mg/dL (8.5-10.1); Estimated GFR (African America >60 (>=60); Estimated GFR (Non-African Ame >60 (>=60)
[2024-05-01 15:14] LABS: Alanine Aminotransferase 29 U/L (16-63); Alkaline Phosphatase 169 U/L (46-116)
[2024-05-01 15:16] LABS: Albumin Globulin Ratio 0.7; Albumin Level 2.6 g/dL (3.4-5.0); Total Protein 6.6 g/dL (6.4-8.2); Troponin I High Sensitivity 202.4 pg/mL (4.0-76.1)
[2024-05-01 15:43] LABS: D Dimer 0.63 mg/L FEU (<=0.59)
--- NOTE | 2024-05-01 16:03 | ECG_ITS ---
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
[2024-05-01 16:14] LABS: Bilirubin Urine NEGATIVE (NEGATIVE); Blood Urine NEGATIVE (NEGATIVE); Clarity Urine CLEAR (CLEAR); Color Urine LT. YELLOW (YELLOW); Glucose Urine UA NEGATIVE (NEGATIVE); Ketones Urine NEGATIVE (NEGATIVE); Leukocyte Esterase Urine NEGATIVE (NEGATIVE); Nitrite Urine NEGATIVE (NEGATIVE); Protein Urine NEGATIVE (NEG/TRACE); Urobilinogen Urine 0.2 EU/dL (0.2-1.0)
[2024-05-01 16:16] LABS: Urine Microscopic Indicated NO
--- NOTE | 2024-05-01 16:52 | CT_ITS ---
[address] [address] Patient Name: AARON OLIVAREZ MRN: [id number] date: 1960 Sex: M Assigned Patient Location: ER Current Patient Location: ED.MAIN Accession/Order Number: [id number] Exam Date: 05/01/2024 16:40 Report Date: 05/01/2024 17:39 At the request of: REZA BARR Procedure: CT angio chest EXAM: CT angio chest HISTORY: elevated d dimer COMPARISON: None. TECHNIQUE: CT chest with intravenous contrast was performed with timing for the evaluation for pulmonary arteries. Multiplanar reformats were performed. MIP (maximum intensity projection) images or 3D post processing was performed. Dose reduction techniques were achieved by using automated exposure control and/or adjustment of mA and/or kV according to patient size and/or use of iterative reconstruction technique. FINDINGS: Lungs: No pneumothorax or effusion. Right basilar consolidation. Airways: Normal. Mediastinum: No adenopathy. Aorta: No aneurysm. Cardiac: Normal size. No pericardial effusion. Pulmonary vasculature: Diagnostic opacification of pulmonary arteries without evidence of pulmonary embolus. Normal morphology. Bones: No acute bony abnormality. Axilla: No adenopathy. Thyroid gland: No abnormality demonstrated on provided imaging. Soft tissues: Unremarkable. Upper abdomen: Unremarkable. Additional findings: None. CT/CT angio chest IMPRESSION: No evidence of pulmonary embolus. Right basilar consolidation, representing pneumonia. Electronically authenticated by: NEEMA MUÑOZ Date: 05/01/2024 17:39
[2024-05-01 17:00] LABS: Troponin I High Sensitivity 210.8 pg/mL (4.0-76.1)
[2024-05-01 17:45] LABS: pH ABG 7.321 (7.350-7.450)
[2024-05-01 17:46] LABS: Allen Test POSITIVE (POSITIVE); Fractionated Inspired Oxygen 60 %; Liters per Minute 40; O2 Mode VAPOTHERM; Oxygen Saturation ABG 97.5 %; PO2 ABG 86.6 mmHg (80.0-100.0); Puncture Site RB
--- NOTE | 2024-05-01 18:07 | RESP.RT ---
Pt refused bipap after initiation. Placed back on vapotherm 40L/60% per Dr. Dover
[2024-05-01 18:28] LABS: Influenza Virus A Antigen Negative; Influenza Virus B Antigen Negative; Internal Control Within Normal Limits; SARS-CoV-2 Ag NEGATIVE (NEGATIVE)
[2024-05-01] MEDS: LORAZEPAM 2 MG/ML VIAL 1 MG IV (19:23)
[2024-05-01 20:03] LABS: Allen Test POSITIVE (POSITIVE); Base Excess ABG 15.9 mmol/L (-2.0-2.0); HCO3 ABG 41.9 mmol/L (22.0-26.0); O2 Mode VAPOTHERM; PO2 ABG 82.9 mmHg (80.0-100.0); pH ABG 7.323 (7.350-7.450)
[2024-05-01 20:04] LABS: ABG PCO2 80.7 mmHg (35.0-45.0); Fractionated Inspired Oxygen 60 %; Liters per Minute 40; Puncture Site R RADIAL
== END 2024-05-01 20:43 | disposition short-term general hospital (02) ==
PROVIDERS: Emergency Medicine; Emergency Provider Emergency Medicine
DX: J18.9 Pneumonia, unspecified organism (principal); J44.0 Chronic obstructive pulmonary disease with (acute) lower respiratory infection; R79.89 Other specified abnormal findings of blood chemistry; R09.02 Hypoxemia; E87.29 Other acidosis; Z20.822 Contact with and (suspected) exposure to COVID-19
CPT/HCPCS: 36415; 36600; 71045; 71275; 80053; 81003; 82800; 82805; 83605; 84484; 85025; 85378; 87040; 87070; 87804; 87811; 93005; 94640; 94660; 94799; 96365; 96366; 96375; 99285; J1100; J2060; J2543; J3370; Q9967

== ENCOUNTER 2024-08-14 18:00 | Emergency (ER) | payer MEDICARE, SELFPAY ==
[2024-08-14 18:09] VITALS: BP 189/97; PULSE 69; TEMP 36.6; O2SAT 96; BMI 25.1
--- OUTSIDE RECORDS SUMMARY | 2024-08-14 18:19 | XMS_ITS | CCD ---
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 MD Signed by: Edgar Montilla MD 07/14/24 Final result Normal [facility] Calcium, Ionic (POC)on 07-14 Calcium [Moles/Vol] 1.11 mmol/L Low 1.15-1.33 [facility] Creatinine w/GFR, POCon Creatinine [Mass/Vol] 1.0 mg/dL Normal 0.51-1.19 [facility] GFR/1.73 sq M.predicted among non-blacks MDRD (S/P/Bld) [Vol rate/Area] 84 mL/min/{1.73_m2} Normal >60 [facility] Comment on above: Result Comment: These results are not intended for use in patients <18 years of age. eGFR results are calculated without a race factor using the 2020 CKD-EPI equation. Careful clinical correlation is recommended, particularly when comparing to results calculated using previous equations. The CKD-EPI equation is less accurate in patients with extremes of muscle mass, extra-renal metabolism of creatine, excessive creatine ingestion, or following therapy that affects renal tubular secretion. Drug Scr, Abuse, Uron 2023 Amphetamine(s),Ur Positive Abnormal NEG [facility] Comment on above: Result Comment: Cuto ff: 1000 ng/mL Performed By: #### U AMIC, MARIA D #### [facility] [address] [place] [id number] Senior Mobile Solutions Architect: Dario Almanza MD Benzodiazepine(s) Positive Abnormal NEG [facility] Comment on above: Result Comment: Cuto ff: 200 ng/ml Performed By: #### U AMIC, MARIA D #### [email or web address] [address] [place] [address] [phone] Senior Mobile Solutions Architect: Dario Almanza MD Cannabinoid(s),Ur Positive Abnormal NEG [facility] Comment on above: Result Comment: Cuto ff: 50 ng/ml Performed By: #### U AMIC, MARIA D #### [email or web address] [address] [place] [phone] Senior Mobile Solutions Architect: Dario Almanza MD Interpretive Info Assay provides rapid clinical screening only. Presumptive positive results for Normal [facility] Comment on above: Result Comment: lega l purposes should be confirmed by another method. To request confirmation, please call the lab within 7 days of sample submission. Performed By: #### U AMIC, MARIA D #### [address] [address] Senior Mobile Solutions Architect: Dario Almanza MD Barbiturate(s),Ur Negative Normal NEG [facility] Comment on above: Result Comment: Cuto ff: 200 ng/ml Performed By: #### U AMIC, MARIA D #### [address] [address] Senior Mobile Solutions Architect: Dario Almanza MD Cocaine Metabolite Negative Normal NEG [facility] Comment on above: Result Comment: Cuto ff: 300 ng/ml Performed By: #### U AMIC, MARIA D #### [address] [address] Senior Mobile Solutions Architect: Dario Almanza MD Fentanyl, Urine Negative Normal NEG [facility] Comment on above: Result Comment: Cuto ff: 5 ng/ml Performed By: #### U AMIC, MARIA D #### [facility] [address] [place] [phone] Senior Mobile Solutions Architect: Dario Almanza MD Methadone Ql (U) Negative Normal NEG [facility] Comment on above: Result Comment: Cuto ff: 300 ng/ml Performed By: #### U AMIC, MARIA D #### [facility] [address] [place] [phone] Senior Mobile Solutions Architect: Dario Almanza MD Opiate(s), Ur Negative Normal NEG [facility] Comment on above: Result Comment: Cuto ff: 300 ng/ml Performed By: #### U AMIC, MARIA D #### [facility] [address] [place] [phone] Senior Mobile Solutions Architect: Dario Almanza MD Oxycodone, Urine Negative Normal NEG [facility] Comment on above: Result Comment: Cuto ff: 100 ng/ml Performed By: #### U AMIC, MARIA D #### [facility] [address] [place], [place] [phone] Senior Mobile Solutions Architect: Dario Almanza MD Phencyclidine, Ur Negative Normal NEG [facility] Comment on above: Result Comment: Cuto ff: 25 ng/ml Performed By: #### U AMIC, MARIA D #### [facility] [address] [place], [place] [phone] Senior Mobile Solutions Architect: Dario Almanza MD Electrolyteson 07-14-2024 Anion gap [Moles/Vol] 9 mmol/L Normal 7-16 [facility] Chloride [Moles/Vol] 101 mmol/L Normal 98-107 [facility] CO2 [Moles/Vol] 32 mmol/L High 22-30 [facility] Potassium [Moles/Vol] 4.0 mmol/L Normal 3.5-4.5 [facility] Sodium [Moles/Vol] 141 mmol/L Normal 138-146 [facility] Glucose (POC)on 07-14-2024 Glucose [Mass/Vol] 172 mg/dL High 74-100 [facility] Hgb/Hct, POCon 07-14-2024 Hematocrit (Bld) [Volume fraction] 43 % Normal 41-53 [facility] Hemoglobin (Bld) [Mass/Vol] 14.8 g/dL Normal 13.5-17.5 [facility] Lactic Acidon 07-14-2024 Lactic Acid,Whole Bl 1.7 mmol/L Normal 0.7-2.1 [facility] Comment on above: Performed By: #### E DTOX, LACTIC #### [facility] [address] [place], [place] [phone] Senior Mobile Solutions Architect: Dario Almanza MD Lactic Acid (POC)on 07-14-20 24 Lactate [Moles/Vol] 2.8 mmol/L High 0.56-1.39 [facility] MRI BRAIN W WO CONTRASTon MRI BRAIN W WO CONTRAST EXAMINATION: MRI OF THE BRAIN WITHOUT AND WITH CONTRAST 07/14/2024 11:56 am TECHNIQUE: Multiplanar multisequence MRI of the head/brain was performed without and with the administration of intravenous contrast. COMPARISON: CT brain/CT angiogram brain earlier same day. HISTORY: ORDERING SYSTEM PROVIDED HISTORY: new onset seizure TECHNOLOGIST PROVIDED HISTORY: new onset seizure Decision Support Exception - unselect if not a suspected or confirmed emergency medical condition->Emergency Medical Condition (MA) Reason for Exam: new onset seizure Relevant Medical/Surgical History: Patient combative w/ sedation; best images possible FINDINGS: INTRACRANIAL STRUCTURES/VENTRICLES: There are no areas of restricted diffusion identified to suggest an acute infarct. There is no acute intracranial hemorrhage. No mass effect or midline shift is present. The hippocampi are normal in size and signal intensities. There is extensive focal and confluent abnormal increased T2/FLAIR signal intensity within the periventricular, subcortical and deep white matter of both hemispheres. No abnormal enhancement is identified. There is no sellar or suprasellar mass present. There is no ventriculomegaly or abnormal extra-axial fluid collection present. The proximal portions of the squaxin of Lopez demonstrate normal flow voids. ORBITS: Limited evaluation of the orbits is unremarkable. SINUSES: The paranasal sinuses and mastoid air cells are clear. BONES/SOFT TISSUES: Bone marrow signal intensity is normal. IMPRESSION: 1. No acute infarct or acute intracranial process identified. 2. Extensive white matter signal abnormality suggesting severe chronic small vessel ischemic changes. 3. No etiology identified to explain the patient's seizures. Interpreted by: Edgar Montilla MD Signed by: Edgar Montilla MD 07/14/24 Final result Normal [facility] Stroke Panelon 07-14-2024 Abs. Basophil 0.06 k/uL Normal 0.00-0.20 [facility] Comment on above: Performed By: #### S TROKE #### [facility] [address] [place] [phone] Senior Mobile Solutions Architect: Dario Almanza MD Abs.Imm.Granulocyte 0.00 k/uL Normal 0.00-0.30 [facility] Comment on above: Performed By: #### S KAY #### [address] [address] Senior Mobile Solutions Architect: Dario Almanza MD Abs.Neutrophil (Seg) 5.40 k/uL Normal 1.50-8.10 [facility] Comment on above: Performed By: #### S KAY #### [place] [address] Senior Mobile Solutions Architect: Dario Almanza MD Basophils/100 WBC (Bld) 1 % Normal 0-2 [facility] Comment on above: Performed By: #### S KAY #### [place] [address] Senior Mobile Solutions Architect: Dario Almanza MD Eosinophils (Bld) [#/Vol] 0.00 10*3/uL Normal 0.00-0.44 [facility] Comment on above: Performed By: #### S KAY #### [place] [address] Senior Mobile Solutions Architect: Dario Almanza MD Eosinophils/100 WBC (Bld) 0 % Low 1-4 [facility] Comment on above: Performed By: #### S KAY #### [address] [address] Senior Mobile Solutions Architect: Dario Almanza MD Immature granulocytes/100 WBC (Bld) 0 % Normal 0 [facility] Comment on above: Performed By: #### S TITUSKE #### [place] [address] Senior Mobile Solutions Architect: Dario Almanza MD Lymphocytes (Bld) [#/Vol] 0.43 10*3/uL Low 1.10-3.70 [facility] Comment on above: Performed By: #### S KAY #### [place] [address] Senior Mobile Solutions Architect: Dario Almanza MD Lymphocytes/100 WBC (Bld) 7 % Low 24-43 [facility] Comment on above: Performed By: #### S KAY #### [address] [address] Senior Mobile Solutions Architect: Dario Almanza MD Monocytes (Bld) [#/Vol] 0.31 10*3/uL Normal 0.10-1.20 [facility] Comment on above: Performed By: #### S KAY #### [address] [address] Senior Mobile Solutions Architect: Dario Almanza MD Monocytes/100 WBC (Bld) 5 % Normal 3-12 [facility] Comment on above: Performed By: #### S KAY #### [address] [address] Senior Mobile Solutions Architect: Dario Almanza MD Morphology David (Bld) [Interp] Normal Normal [facility] Comment on above: Performed By: #### S KAY #### [address] [address] Senior Mobile Solutions Architect: Dario Almanza MD Neutrophil (Seg) 87 % High 36-65 [facility] Comment on above: Performed By: #### S KAY #### [address] [address] Senior Mobile Solutions Architect: Dario Almanza MD Anion gap [Moles/Vol] 8 mmol/L Low 9-16 [facility] Comment on above: Performed By: #### S KAY #### [address] [address] Senior Mobile Solutions Architect: Dario Almanza MD Calcium [Mass/Vol] 8.5 mg/dL Low 8.6-10.4 [facility] Comment on above: Performed By: #### S KAY #### [address] [place] [address] Senior Mobile Solutions Architect: Dario Almanza MD Chloride [Moles/Vol] 102 mmol/L Normal 98-107 [facility] Comment on above: Performed By: #### S TITUSKE #### [address] [address] Senior Mobile Solutions Architect: Dario Almanza MD CK [Catalytic activity/Vol] 101 U/L Normal 39-308 [facility] Comment on above: Performed By: #### S TITUSKE #### [address] [address] Senior Mobile Solutions Architect: Dario Almanza MD CO2 [Moles/Vol] 27 mmol/L Normal 20-31 [facility] Comment on above: Performed By: #### S KAY #### [address] [address] Senior Mobile Solutions Architect: Dario Almanza MD Creatinine [Mass/Vol] 1.1 mg/dL Normal 0.70-1.20 [facility] Comment on above: Performed By: #### S KAY #### [address] [address] Senior Mobile Solutions Architect: Dario Almanza MD GFR/1.73 sq M.predicted among non-blacks MDRD (S/P/Bld) [Vol rate/Area] 74 mL/min/{1.73_m2} Normal >60 [facility] Comment on above: Result Comment: These results are not intended for use in patients <18 years of age. eGFR results are calculated without a race factor using the 2020 CKD-EPI equation. Careful clinical correlation is recommended, particularly when comparing to results calculated using previous equations. The CKD-EPI equation is less accurate in patients with extremes of muscle mass, extra-renal metabolism of creatine, excessive creatine ingestion, or following therapy that affects renal tubular secretion. Performed By: #### S KAY #### [address] [place] [address] Senior Mobile Solutions Architect: Dario Almanza MD Glucose [Mass/Vol] 174 mg/dL High 74-99 [facility] Comment on above: Performed By: #### S TROKE #### [facility] [address] [place] [phone] Senior Mobile Solutions Architect: Dario Almanza MD Myoglobin [Mass/Vol] 106 ng/mL High 28-72 [facility] Comment on above: Performed By: #### S TROKE #### [facility] [address] [place] [phone] Senior Mobile Solutions Architect: Dario Almanza MD Potassium [Moles/Vol] 4.0 mmol/L Normal 3.7-5.3 [facility] Comment on above: Result Comment: SPEC IMEN SLIGHTLY HEMOLYZED, RESULTS MAY BE ADVERSELY AFFECTED. Performed By: #### S TROKE #### [facility] [address] [place] [address] Senior Mobile Solutions Architect: Dario Almanza MD Sodium [Moles/Vol] 137 mmol/L Normal 136-145 [facility] Comment on above: Performed By: #### S TROKE #### [facility] [address] [place] [phone] Senior Mobile Solutions Architect: Dario Almanza MD Troponin, High Sens 24 ng/L High 0-22 [facility] Comment on above: Result Comment: High Sensitivity Troponin values cannot be compared with other Troponin methodologies. Performed By: #### S TROKE #### [facility] [address] [place] [phone] Senior Mobile Solutions Architect: Dario Almanza MD Urea nitrogen [Mass/Vol] 16 mg/dL Normal 8-23 [facility] Comment on above: Performed By: #### S TROKE #### [email or web address] [address] [place] [phone] Senior Mobile Solutions Architect: Dario Almanza MD aPTT Coag (Bld) [Time] 22.1 s Low 23.0-36.5 [facility] Comment on above: Result Comment: IV Heparin Therapy Range: 66.0-92.0 sec Performed By: #### S KAY #### [facility] [address] [place] [phone] Senior Mobile Solutions Architect: Dario Almanza MD INR Coag (PPP) [Relative time] 1.1 {INR} Normal [facility] Comment on above: Result Comment: Therapeutic Range: Moderate Anticoagulant Intensity: INR = 2.0-3.0 High Anticoagulant Intensity: INR = 2.5-3.5 Performed By: #### S KAY #### [place] [address] Senior Mobile Solutions Architect: Dario Almanza MD PT Coag (PPP) [Time] 13.6 s Normal 11.7-14.9 [facility] Comment on above: Performed By: #### S KAY #### [address] [address] Senior Mobile Solutions Architect: Dario Almanza MD Erythrocyte distribution width (RBC) [Ratio] 13.2 % Normal 11.8-14.4 [facility] Comment on above: Performed By: #### S KAY #### [facility] [address] [place] [phone] Senior Mobile Solutions Architect: Dario Almanza MD Hematocrit (Bld) [Volume fraction] 42.4 % Normal 40.7-50.3 [facility] Comment on above: Performed By: #### S TITUSKE #### [facility] [address] [place] [address] Senior Mobile Solutions Architect: Dario Almanza MD Hemoglobin (Bld) [Mass/Vol] 13.9 g/dL Normal 13.0-17.0 [facility] Comment on above: Performed By: #### S KAY #### [facility] [address] [place] [address] Senior Mobile Solutions Architect: Dario Almanza MD MCH (RBC) [Entitic mass] 29.6 pg Normal 25.2-33.5 [facility] Comment on above: Performed By: #### S TROKE #### [address] [address] Senior Mobile Solutions Architect: Dario Almanza MD MCHC (RBC) [Mass/Vol] 32.8 g/dL Normal 28.4-34.8 [facility] Comment on above: Performed By: #### S TITUSKE #### [address] [address] Senior Mobile Solutions Architect: Dario Almanza MD MCV (RBC) [Entitic vol] 90.2 fL Normal 82.6-102.9 [facility] Comment on above: Performed By: #### S TITUSKE #### [address] [address] Senior Mobile Solutions Architect: Dario Almanza MD NRBC Automated 0.0 per 100 WBC Normal 0.0 [facility] Comment on above: Performed By: #### S TITUSKE #### [address] [address] Senior Mobile Solutions Architect: Dario Almanza MD Platelet mean volume (Bld) [Entitic vol] 9.3 fL Normal 8.1-13.5 [facility] Comment on above: Performed By: #### S TROKE #### [address] [address] Senior Mobile Solutions Architect: Dario Almanza MD Platelets (Bld) [#/Vol] 267 10*3/uL Normal 138-453 [facility] Comment on above: Performed By: #### S TITUSKE #### [address] [address] Senior Mobile Solutions Architect: Dario Almanza MD RBC (Bld) [#/Vol] 4.70 10*6/uL Normal 4.21-5.77 [facility] Comment on above: Performed By: #### S KAY #### [address] [address] Senior Mobile Solutions Architect: Dario Almanza MD WBC (Bld) [#/Vol] 6.2 10*3/uL Normal 3.5-11.3 [facility] Comment on above: Performed By: #### S KAY #### [address] [address] Senior Mobile Solutions Architect: Dario Almanza MD TSH w/reflex to FT4on 2023 Thyroid Stim. Horm. 1.44 uIU/mL Normal 0.27-4.20 [facility] Comment on above: Performed By: #### T SHX ####[place], [place] [address])[phone] Director: Dario Almanza MD Tox Scr, Bld, EDon 4 Acetaminophen [Mass/Vol] ug/mL Low 10-30 [facility] Comment on above: Performed By: #### E DTOX, LACTIC #### [address] [address] Senior Mobile Solutions Architect: Dario Almanza MD Ethanol [Mass/Vol] mg/dL Normal <10 [facility] Comment on above: Performed By: #### E DTOX, LACTIC #### [address] [address] Senior Mobile Solutions Architect: Dario Almanza MD Ethanol percent <0.010 Normal <0.010 [facility] Comment on above: Performed By: #### E DTOX, LACTIC #### [address] [address] Senior Mobile Solutions Architect: Dario Almanza MD Salicylate <0.5 Normal 0.0-10.0 [facility] Comment on above: Performed By: #### E DTOX, LACTIC #### [address] [address] Senior Mobile Solutions Architect: Dario Almanza MD Urinalysis w/ Microon 2023 Bacteria None Normal NONE [facility] Comment on above: Performed By: #### U AMIC, MARIA D #### [address] [address] Senior Mobile Solutions Architect: Dario Almanza MD Bilirubin, SemiQt,Ur Negative Normal NEG [facility] Comment on above: Performed By: #### U AMIC, MARIA D #### [address] [address] Senior Mobile Solutions Architect: Dario Almanza MD Blood, Urine Negative Normal NEG [facility] Comment on above: Performed By: #### U AMIC, MARIA D #### [address] [address] Senior Mobile Solutions Architect: Dario Almanza MD Casts 5 TO 10 HYALINE Normal 0-8 [facility] Comment on above: Result Comment: Refe rence range defined for non-centrifuged specimen. Performed By: #### U AMIC, MARIA D #### [address] [address] Senior Mobile Solutions Architect: Dario Almanza MD Clarity (U) Clear Normal CLEAR [facility] Comment on above: Performed By: #### U AMIC, MARIA D #### [address] [address] Senior Mobile Solutions Architect: Dario Almanza MD Color (U) Yellow Normal YEL [facility] Comment on above: Performed By: #### U AMIC, MARIA D #### [address] [address] Senior Mobile Solutions Architect: Dario Almanza MD Epithelial cells LM Ql (Urine sed) 0 TO 2 Normal 0-5 [facility] Comment on above: Performed By: #### U AMIC, MARIA D #### [address] [address] Senior Mobile Solutions Architect: Dario Almanza MD Glucose Ql (U) 1+ mg/dL Abnormal NEG [facility] Comment on above: Performed By: #### U AMIC, MARIA D #### [address] [address] Senior Mobile Solutions Architect: Dario Almanza MD Ketones Ql (U) Negative Normal NEG [facility] Comment on above: Performed By: #### U AMIC, MARIA D #### [address] [address] Senior Mobile Solutions Architect: Dario Almanza MD Leukocyte esterase Test strip Ql (U) Negative Normal NEG [facility] Comment on above: Performed By: #### U AMIC, MARIA D #### [address] [address] Senior Mobile Solutions Architect: Dario Almanza MD Nitrite,Ur Negative Normal NEG [facility] Comment on above: Performed By: #### U AMIC, MARIA D #### [address] [address] Senior Mobile Solutions Architect: Dario Almanza MD PH,Ur 7.0 Normal 5.0-8.0 [facility] Comment on above: Performed By: #### U AMIC, MARIA D #### [facility] [address] [place] [address] Senior Mobile Solutions Architect: Dario Almanza MD Protein Ql (U) 1+ mg/dL Abnormal NEG [facility] Comment on above: Performed By: #### U AMIC, MARIA D #### [facility] [address] [place] [address] Senior Mobile Solutions Architect: Dario Almanza MD Spec. Fowler,Ur 1.044 High 1.005-1.030 [facility] Comment on above: Performed By: #### U AMIC, MARIA D #### [facility] [address] [place] [address] Senior Mobile Solutions Architect: Dario Almanza MD Urine RBC's 0 TO 2 Normal 0-4 [facility] Comment on above: Result Comment: Refe rence range defined for non-centrifuged specimen. Performed By: #### U AMIC, MARIA D #### [facility] [address] [place] [address] Senior Mobile Solutions Architect: Dario Almanza MD Urine WBC's None Normal 0-5 [facility] Comment on above: Performed By: #### U AMIC, MARIA D #### [facility] [address] [place] [phone] Senior Mobile Solutions Architect: Dario Almanza MD Urobilinogen,Ur Normal Normal 0.0-1.0 [facility] Comment on above: Performed By: #### U AMIC, MARIA D #### [facility] [address] [place] [id number] Senior Mobile Solutions Architect: Dario Almanza MD Venous Bld Gas,POCon 024 HCO3 (Bld) [Moles/Vol] 31.9 mmol/L High 22.0-29.0 [facility] Oxygen saturation in Blood 45.4 % Low 60.0-85.0 [facility] pCO2, Venous 47.5 mm Hg Normal 41.0-51.0 [facility] pH,Venous 7.435 High 7.320-7.430 [facility] pO2, Venous 24.6 mm Hg Low 30.0-50.0 [facility] Positive Base Excess (calc) 6.4 mmol/L High 0.0-3.0 [facility] XR ABDOMEN (KUB) (SINGLE AP VIEW)on 07-14-2024 XR ABDOMEN (KUB) (SINGLE AP VIEW) EXAMINATION: ONE SUPINE XRAY VIEW(S) OF THE ABDOMEN 07/14/2024 10:38 am COMPARISON: None. HISTORY: ORDERING SYSTEM PROVIDED HISTORY: MRI clearance TECHNOLOGIST PROVIDED HISTORY: MRI clearance FINDINGS: No evidence of metallic foreign body. Residual contrast noted within the bladder, right renal collecting system and right ureter. Nonspecific nonobstructive bowel gas pattern. Osseous structures demonstrate no acute abnormality. IMPRESSION: No evidence of metallic foreign body. Nonobstructive bowel gas pattern. Contrast noted in the right renal collecting system, right ureter and bladder. Interpreted by: Jt Gray MD Signed by: Jt Gray MD 07/14/24 Final result Normal [facility] XR CHEST PORTABLEon 07-14-20 XR CHEST PORTABLE EXAMINATION: ONE XRAY VIEW OF THE CHEST 07/14/2024 10:38 am COMPARISON: KUB performed the same day. HISTORY: ORDERING SYSTEM PROVIDED HISTORY: Desat TECHNOLOGIST PROVIDED HISTORY: Desat FINDINGS: Lungs: Low lung volumes with bronchovascular crowding. No focal consolidation. Pleura: No effusion or pneumothorax. Cardiomediastinal silhouette: Tortuosity of the thoracic aorta. Normal heart size. Bones: No acute bony findings. Degenerative changes of the bilateral shoulders. Soft tissues: Normal. IMPRESSION: No acute pulmonary findings. Interpreted by: aBsil Witt DO Signed by: Basil Witt DO 07/14/24 Final result Normal [facility] Basic Metabolic Panelon 06-2 Creatinine Clr Calc Pharmacy 82.90 Normal [facility] Comment on above: Result Comment: PERF ORMED BY: [place] [address] PATHOLOGIST [employer] ULISES MILLS M.D. Performed By: #### B MP #### [place] [id number] [place] GFR/1.73 sq M.predicted MDRD (S/P/Bld) [Vol rate/Area] mL/min/{1.73_m2} Normal [facility] Comment on above: Performed By: #### B MP #### [address] [address] [place] Calcium [Mass/volume] in Ser um or PlasmaOrdered By: Janae Jose on 05-05-2024 Calcium [Mass/Vol] 9.0 mg/dL Normal 8.6-10.3 [facility] Comment on above: Performed By: #### B MP #### [facility] [address] [place] [address] [place] Carbon dioxide, total [Moles /volume] in Serum or PlasmaOrdered By: Janae Jose on 05-05-2024 CO2 [Moles/Vol] 30.3 mmol/L Normal 21.0-31.0 [facility] Comment on above: Performed By: #### B MP #### [facility] [address] [place] [address] [place] Chloride [Moles/volume] in S andrei or PlasmaOrdered By: Janae Jose on 05-05-2024 Chloride [Moles/Vol] 98 mmol/L Normal 98-107 [facility] Comment on above: Performed By: #### B MP #### [facility] [address] [place] [address] [place] Creatinine [Mass/volume] in Serum or PlasmaOrdered By: Janae Jose on 05-05-2024 Creatinine [Mass/Vol] 0.97 mg/dL Normal 0.70-1.30 [facility] Comment on above: Performed By: #### B MP #### [facility] [address] [place] [address] [place] Glucose [Mass/volume] in Ser um or PlasmaOrdered By: Janae Jose on 05-05-2024 Glucose [Mass/Vol] 105 mg/dL High 70-100 [facility] Comment on above: ADA recommended refe rence rangeRandom Glucose Reference Range is dependent on time and content of last meal. Glucose of more than 200 mg/dL in a nonstressed, ambulatory subject supports the diagnosis of Diabetes Mellitus. Result Comment: [place] [facility] Glucose Reference Range is dependent on time and content of last meal. Glucose of more than 200 mg/dL in a nonstressed, ambulatory subject supports the diagnosis of Diabetes Mellitus. ADA recommended reference range Performed By: #### B MP #### [facility] [address] No Panel InformationOrdered By: Janae Jose on 05-05-2024 Estimated GFR (CKD-EPI) > 60.0 mL/Min [facility] Creatinine Clearance (Chem 82.90 [facility] Potassium [Moles/volume] in Serum or PlasmaOrdered By: Janae Jose on 05-05-2024 Potassium [Moles/Vol] 4.4 mmol/L Normal 3.5-5.1 [facility] Comment on above: Performed By: #### B MP #### [address] Serum or plasma anion gap de terminationOrdered By: Janae Jose on 05-05-2024 Anion gap [Moles/Vol] 8.1 mmol/L Normal 6.0-15.0 [facility] Comment on above: Performed By: #### B MP #### [address] Sodium [Moles/volume] in Ser um or PlasmaOrdered By: Janae Jose on 05-05-2024 Sodium [Moles/Vol] 132 mmol/L Low 136-145 [facility] Comment on above: Performed By: #### B MP #### [address] Urea nitrogen [Mass/volume] in Serum or PlasmaOrdered By: Janae Jose on 05-05-2024 Urea nitrogen [Mass/Vol] 25 mg/dL Normal 7-25 [facility] Comment on above: Performed By: #### B MP #### [place] [address] [place] Ammonia [Moles/volume] in Pl asmaOrdered By: Víctor Agrawal on 05-04-2024 Ammonia (P) [Moles/Vol] 22 umol/L Normal 11-35 [facility] Comment on above: Result Comment: PERF ORMED BY: [place] [address] PATHOLOGIST [employer] ULISES MILLS M.D. Performed By: #### A MM #### [address] Automated basophil %Ordered By: Magdy Douglass on 05-04-2024 Basophils/100 WBC (Bld) 0.1 % Normal . [facility] Comment on above: Performed By: #### C BC ####[address] Automated basophil countOrde red By: Magdy Douglass on 05-04-2024 Basophils (Bld) [#/Vol] 0.0 10*3/uL Normal 0.0-0.2 [facility] Comment on above: Result Comment: PERF ORMED BY: [place] [address] PATHOLOGIST [employer] ULISES MILLS M.D. Performed By: #### C BC ####[address] Automated blood monocyte cou ntOrdered By: Magdy Douglass on 05-04-2024 Monocytes (Bld) [#/Vol] 0.3 10*3/uL Normal 0.0-0.8 [facility] Comment on above: Performed By: #### C BC ####[address] Automated eosinophil %Ordere d By: Magdy Douglass on 05-04-2024 Eosinophils/100 WBC (Bld) 0.0 % Normal . [facility] Comment on above: Performed By: #### C BC ####[address] Automated eosinophil countOr dered By: Magdy Douglass on 05-04-2024 Eosinophils (Bld) [#/Vol] 0.0 10*3/uL Normal 0.0-0.45 [facility] Comment on above: Performed By: #### C BC ####[address] Automated monocyte %Ordered By: Magdy Douglass on 05-04-2024 Monocytes/100 WBC (Bld) 3.0 % Normal . [facility] Comment on above: Performed By: #### C BC ####[address] [address] [facility] Automated neutrophil %Ordere d By: Magdy Rafat on 05-04-2024 Neutrophils/100 WBC (Bld) 92.0 % Normal . [facility] Comment on above: Performed By: #### C BC ####[address] [address] [facility] Basic Metabolic Panelon 04-14 Anion gap [Moles/Vol] 11.4 mmol/L Normal 6.0-15.0 [facility] Comment on above: Performed By: #### T SH3, [id number], BMP ####[address] [address] [facility] Calcium [Mass/Vol] 9.6 mg/dL Normal 8.6-10.3 [facility] Comment on above: Performed By: #### T SH3, [id number], BMP ####[address] [address] [facility] Chloride [Moles/Vol] 93 mmol/L Low 98-107 [facility] Comment on above: Performed By: #### T SH3, [id number], BMP ####[address] [address] [facility] CO2 [Moles/Vol] 30.9 mmol/L Normal 21.0-31.0 [facility] Comment on above: Performed By: #### T SH3, [id number], BMP ####[address] [address] [facility] Creatinine [Mass/Vol] 0.88 mg/dL Normal 0.70-1.30 [facility] Comment on above: Performed By: #### T SH3, [id number], BMP ####[address] [address] [facility] Creatinine Clr Calc Pharmacy 91.86 Normal [facility] Comment on above: Performed By: #### T SH3, [id number], BMP ####[address] GFR/1.73 sq M.predicted MDRD (S/P/Bld) [Vol rate/Area] mL/min/{1.73_m2} Normal [facility] Comment on above: Performed By: #### T SH3, [id number], BMP ####[address] Glucose [Mass/Vol] 107 mg/dL High 70-100 [facility] Comment on above: Result Comment: [facility] Glucose Reference Range is dependent on time and content of last meal. Glucose of more than 200 mg/dL in a nonstressed, ambulatory subject supports the diagnosis of Diabetes Mellitus. ADA recommended reference range Performed By: #### T SH3, [id number], BMP ####[address] Potassium [Moles/Vol] 4.3 mmol/L Normal 3.5-5.1 [facility] Comment on above: Performed By: #### T SH3, [id number], BMP ####[address] Sodium [Moles/Vol] 131 mmol/L Low 136-145 [facility] Comment on above: Performed By: #### T SH3, [id number], BMP ####[address] Urea nitrogen [Mass/Vol] 19 mg/dL Normal 7-25 [facility] Comment on above: Performed By: #### T SH3, [id number], BMP ####[place] [id number] [facility] Complete Blood Count Auto Di ffon 05-04-2024 Mean Corpuscular HGB Conc 32.9 g/dL Normal 32.5-35.6 [facility] Comment on above: Performed By: #### C BC ####[address] NRBC% 0.0 /100{WBC} Normal 0-0.5 [facility] Comment on above: Performed By: #### C BC ####[address] Erythrocyte distribution wid th [Ratio] by Automated countOrdered By: Magdy Douglass on 05-04-2024 Erythrocyte distribution width (RBC) [Ratio] 16.5 % High 12.0-14.8 [facility] Comment on above: Performed By: #### C BC ####[address] Erythrocytes [#/volume] in B lood by Automated countOrdered By: Magdy Douglass on 05-04-2024 RBC (Bld) [#/Vol] 4.97 10*6/uL Normal 3.90-5.60 [facility] Comment on above: Performed By: #### C BC ####[address] Folate [Mass/volume] in Seru m or PlasmaOrdered By: Janae Jose on 05-04-2024 Folate [Mass/Vol] 9.7 ng/mL >5.9 [facility] Comment on above: Folate reference ran ge: >5.9 ng/mlThe WHO technical consultation on folate and vitamin [id number] has determined that folate concentrations lessthan 4 ng/ml are considered deficient. Hematocrit [Volume Fraction] of Blood by Automated countOrdered By: Magdy Douglass on 05-04-2024 Hematocrit (Bld) [Volume fraction] 45.0 % Normal 38.8-50.0 [facility] Comment on above: Performed By: #### C BC ####[address] Hemoglobin [Mass/volume] in BloodOrdered By: Magdy Douglass on 05-04-2024 Hemoglobin (Bld) [Mass/Vol] 14.8 g/dL Normal 13.0-17.0 [facility] Comment on above: Performed By: #### C BC ####[place] [address] Leukocytes [#/volume] correc srinivas for nucleated erythrocytes in Blood by Automated counOrdered By: Magdy Douglass on 05-04-2024 WBC corrected for nucl RBC Auto (Bld) [#/Vol] 9.6 10*3/uL 4.1-10.5 [facility] Leukocytes [#/volume] in Blo od by Automated countOrdered By: Magdy Douglass on 05-04-2024 WBC (Bld) [#/Vol] 9.6 10*3/uL Normal 4.1-10.5 [facility] Comment on above: Performed By: #### C BC ####[address] Lymphocytes [#/volume] in Bl ood by Automated countOrdered By: Magdy Douglass on 05-04-2024 Lymphocytes (Bld) [#/Vol] 0.5 10*3/uL Low 1.00-4.8 [facility] Comment on above: Performed By: #### C BC ####[address] Lymphocytes/100 leukocytes i n Blood by Automated countOrdered By: Magdy Douglass on 05-04-2024 Lymphocytes/100 WBC (Bld) 4.9 % Normal . [facility] Comment on above: Performed By: #### C BC ####[address] MCH [Entitic mass] by Automa srinivas countOrdered By: Magdy Douglass on 05-04-2024 MCH (RBC) [Entitic mass] 29.8 pg Normal 27.5-35.2 [facility] Comment on above: Performed By: #### C BC ####[address] MCHC Auto (RBC) [Mass/Vol]Or dered By: Magdy Douglass on 05-04-2024 MCHC (RBC) [Mass/Vol] 32.9 g/dL 32.5-35.6 [facility] MCV [Entitic volume] by Auto mated countOrdered By: Magdy Douglass on 05-04-2024 MCV (RBC) [Entitic vol] 90.4 fL Normal 83.5-101 [facility] Comment on above: Performed By: #### C BC ####[place] [id number] [place] [id number] [facility] Neutrophils [#/volume] in Bl ood by Automated countOrdered By: Magdy Douglass on 05-04-2024 Neutrophils (Bld) [#/Vol] 8.9 10*3/uL High 1.8-7.7 [facility] Comment on above: Performed By: #### C BC ####[address] Nucleated erythrocytes [Pres ence] in Blood by Automated countOrdered By: Magdy Douglass on 05-04-2024 Nucleated RBC Auto Ql (Bld) 0.0 /100{WBC} 0-0.5 [facility] Platelet mean volume [Entiti c volume] in Blood by Automated countOrdered By: Magdy Douglass on 05-04-2024 Platelet mean volume (Bld) [Entitic vol] 6.5 fL Low 6.6-10.1 [facility] Comment on above: Performed By: #### C BC ####[address] Platelets [#/volume] in Bloo d by Automated countOrdered By: Magdy Douglass on 05-04-2024 Platelets (Bld) [#/Vol] 417 10*3/uL Normal 150-450 [facility] Comment on above: Performed By: #### C BC ####[place] [id number] [facility] Thyrotropin [Units/volume] i n Serum or PlasmaOrdered By: Janae Jose on 05-04-2024 TSH Qn 5.50 m[IU]/L High 0.45-5.33 [facility] Comment on above: Result Comment: PERF ORMED BY: [facility] [address] [place] [id number] PATHOLOGIST [employer] ULISES MILLS M.D. Performed By: #### T SH3, [id number], BMP ####[address] Vit. B12/Folate Profileon Folate 9.7 ng/mL Normal >5.9 [facility] Comment on above: Result Comment: [facility] reference range: >5.9 ng/ml The WHO technical consultation on folate and vitamin b12 deficiencies has determined that folate concentrations less than 4 ng/ml are considered deficient. Performed By: #### T SH3, [id number], BMP ####[place] [id number] [facility] Vitamin B12 ser/plasOrdered By: Janae Jose on 05-04-2024 Cobalamin (Vitamin B12) [Mass/Vol] 500 pg/mL Normal 180-914 [facility] Comment on above: Performed By: #### T SH3, [id number], BMP ####[address] Alanine aminotransferase [En zymatic activity/volume] in Serum or PlasmaOrdered By: Magdy Douglass on 05-03-2024 ALT [Catalytic activity/Vol] 14 U/L Normal 7-52 [facility] Comment on above: Performed By: #### C MP, CBC ####[address] Albumin [Mass/volume] in Ser um or Plasma by Bromocresol green (BCG) dye binding methoOrdered By: Magdy Douglass on 05-03-2024 Albumin BCG dye [Mass/Vol] 3.1 g/dL 3.5-5.7 [facility] Alkaline phosphatase [Enzyma tic activity/volume] in Serum or PlasmaOrdered By: Magdy Douglass on 05-03-2024 ALP [Catalytic activity/Vol] 131 U/L High 34-104 [facility] Comment on above: Performed By: #### C MP, CBC ####[place] [id number] [facility] Aspartate aminotransferase [ Enzymatic activity/volume] in Serum or PlasmaOrdered By: Magdy Douglass on 05-03-2024 AST [Catalytic activity/Vol] 12 U/L Low 13-39 [facility] Comment on above: Performed By: #### C MP, CBC ####[facility] [id number] Bilirubin.total [Mass/volume ] in Serum or PlasmaOrdered By: Magdy Rafat on 05-03-2024 Bilirubin [Mass/Vol] 0.4 mg/dL Normal 0.3-1.0 [facility] Comment on above: Performed By: #### C MP, CBC ####[facility] [id number] head/brain wo conon 05-03 CT head/brain wo con [facility] Main [place] [address] [place] [address] CT Scan Report Signed Patient: Aaron Olivarez MR#: [id number] 00 : 1960 Acct:[id number] Age/Sex: 63 / M ADM Date: 05/01/24 Loc: Room: [address] [place] [address] Type: ADM IN Attending Dr: Janae Jose MD Copies to: Janae Jose MD Ordering Provider: Janae Jose MD Date of Service: 05/03/24 CT/CT head/brain wo con: AMS CT BRAIN WITHOUT CONTRAST: CLINICAL HISTORY: Altered mental status. COMPARISON: None TECHNIQUE: Contiguous axial unenhanced images were obtained through the brain. This CT exam was performed using one or more following dose reduction techniques: Automated exposure control, adjustment of the mA and/or kV according to patient size, or use of iterative reconstruction technique. This examination is suboptimal due to motion. FINDINGS: There is no evidence of midline shift, intra or extra-axial fluid collection, hemorrhage or CT evidence of stroke. Cortical atrophy with chronic myovascular ischemic changes. Posterior fossa appears unremarkable. Visualized intraorbital contents demonstrate no acute findings. Complete opacification of the right maxillary and frontal sinuses. Moderate right ethmoid sinus disease. The surrounding soft tissues are normal. CT/CT head/brain wo con IMPRESSION: SUBOPTIMAL STUDY. NO DEFINITE ACUTE INTRACRANIAL ABNORMALITY. Impression dictated by: Patricio Velázquez Jr., D.O.05/03/2024 4:20 PM Dictation Location: [place] [address] Transcribed By: [facility] 05/03/24 1620 Dictated By: Patricio Velázquez Jr, DO 05/03/24 1618 Signed By: 05/03/24 1620 Normal [facility] Complete Blood Count Auto Di ffon 05-03-2024 Basophils (Bld) [#/Vol] 0.0 10*3/uL Normal 0.0-0.2 [facility] Comment on above: Result Comment: PERF ORMED BY: [place] [address] PATHOLOGIST [employer] ULISES MILLS M.D. Performed By: #### C MP, CBC ####[address] Basophils/100 WBC (Bld) 0.3 % Normal . [facility] Comment on above: Performed By: #### C MP, CBC ####[address] Eosinophils (Bld) [#/Vol] 0.0 10*3/uL Normal 0.0-0.45 [facility] Comment on above: Performed By: #### C MP, CBC ####[address] Eosinophils/100 WBC (Bld) 0.0 % Normal . [facility] Comment on above: Performed By: #### C MP, CBC ####[address] Erythrocyte distribution width (RBC) [Ratio] 16.0 % High 12.0-14.8 [facility] Comment on above: Performed By: #### C MP, CBC ####[address] Hematocrit (Bld) [Volume fraction] 40.0 % Normal 38.8-50.0 [facility] Comment on above: Performed By: #### C MP, CBC ####[address] Hemoglobin (Bld) [Mass/Vol] 13.4 g/dL Normal 13.0-17.0 [facility] Comment on above: Performed By: #### C MP, CBC ####[address] Lymphocytes (Bld) [#/Vol] 0.4 10*3/uL Low 1.00-4.8 [facility] Comment on above: Performed By: #### C MP, CBC ####[address] Lymphocytes/100 WBC (Bld) 4.7 % Normal . [facility] Comment on above: Performed By: #### C MP, CBC ####[address] MCH (RBC) [Entitic mass] 30.1 pg Normal 27.5-35.2 [facility] Comment on above: Performed By: #### C MP, CBC ####[address] MCV (RBC) [Entitic vol] 90.1 fL Normal 83.5-101 [facility] Comment on above: Performed By: #### C MP, CBC ####[address] Mean Corpuscular HGB Conc 33.5 g/dL Normal 32.5-35.6 [facility] Comment on above: Performed By: #### C MP, CBC ####[address] Monocytes (Bld) [#/Vol] 0.2 10*3/uL Normal 0.0-0.8 [facility] Comment on above: Performed By: #### C MP, CBC ####[address] Monocytes/100 WBC (Bld) 2.4 % Normal . [facility] Comment on above: Performed By: #### C MP, CBC ####[place] [id number] [place] Neutrophils (Bld) [#/Vol] 7.2 10*3/uL Normal 1.8-7.7 [facility] Comment on above: Performed By: #### C MP, CBC ####[address] Neutrophils/100 WBC (Bld) 92.6 % Normal . [facility] Comment on above: Performed By: #### C MP, CBC ####[address] NRBC% 0.0 /100{WBC} Normal 0-0.5 [facility] Comment on above: Performed By: #### C MP, CBC ####[address] Platelet mean volume (Bld) [Entitic vol] 6.3 fL Low 6.6-10.1 [facility] Comment on above: Performed By: #### C MP, CBC ####[address] Platelets (Bld) [#/Vol] 328 10*3/uL Normal 150-450 [facility] Comment on above: Performed By: #### C MP, CBC ####[address] RBC (Bld) [#/Vol] 4.44 10*6/uL Normal 3.90-5.60 [facility] Comment on above: Performed By: #### C MP, CBC ####[address] WBC (Bld) [#/Vol] 7.7 10*3/uL Normal 4.1-10.5 [facility] Comment on above: Performed By: #### C MP, CBC ####[address] Comprehensive Metabolic Pane wilner 05-03-2024 Albumin [Mass/Vol] 3.1 g/dL Low 3.5-5.7 [facility] Comment on above: Performed By: #### C MP, CBC ####[place] [id number] [facility] Anion gap [Moles/Vol] 4.4 mmol/L Low 6.0-15.0 [facility] Comment on above: Performed By: #### C MP, CBC ####[place] [id number] [facility] Calcium [Mass/Vol] 8.8 mg/dL Normal 8.6-10.3 [facility] Comment on above: Performed By: #### C MP, CBC ####[address] Chloride [Moles/Vol] 93 mmol/L Low 98-107 [facility] Comment on above: Performed By: #### C MP, CBC ####[address] CO2 [Moles/Vol] 40.3 mmol/L High 21.0-31.0 [facility] Comment on above: Performed By: #### C MP, CBC ####[place] [id number] [facility] Creatinine [Mass/Vol] 0.88 mg/dL Normal 0.70-1.30 [facility] Comment on above: Performed By: #### C MP, CBC ####[place] [address] [place] Creatinine Clr Calc Pharmacy 91.86 Normal [facility] Comment on above: Result Comment: PERF ORMED BY: [facility] [address] [place] [id number] PATHOLOGIST [employer] ULISES MILLS M.D. Performed By: #### C MP, CBC ####[place] [id number] [place] GFR/1.73 sq M.predicted MDRD (S/P/Bld) [Vol rate/Area] mL/min/{1.73_m2} Normal [facility] Comment on above: Performed By: #### C MP, CBC ####[address] [address] [place] Glucose [Mass/Vol] 112 mg/dL High 70-100 [facility] Comment on above: Result Comment: [place] Glucose Reference Range is dependent on time and content of last meal. Glucose of more than 200 mg/dL in a nonstressed, ambulatory subject supports the diagnosis of Diabetes Mellitus. ADA recommended reference range Performed By: #### C MP, CBC ####[facility] [place] [id number] [facility] Potassium [Moles/Vol] 4.7 mmol/L Normal 3.5-5.1 [facility] Comment on above: Performed By: #### C MP, CBC ####[place] [address] [address] Sodium [Moles/Vol] 133 mmol/L Low 136-145 [facility] Comment on above: Performed By: #### C MP, CBC ####[place] [address] [place] [id number] [facility] Urea nitrogen [Mass/Vol] 20 mg/dL Normal 7-25 [facility] Comment on above: Performed By: #### C MP, CBC ####[place] [id number] [facility] ECG 12 lead ECGon 05-03-2024 ECG 12 lead ECG [facility] Main [place] [address] [place] [address] Electrocardiograph Report Signed Patient: Aaron Olivarez MR#: [id number] 00 : 1960 Acct:[id number] Age/Sex: 63 / M ADM Date: 05/01/24 Loc: Room: [address] [place] [address] Type: ADM IN Attending Dr: Janae Jose MD Ordering Provider: Janae Jose MD Date of Service: 05/03/24 ECG/ECG 12 lead ECG: elevatd troponin Copies to: Test Reason : Blood Pressure : / mmHG Vent. Rate : 066 BPM Atrial Rate : 066 BPM P-R Int : 124 ms QRS Dur : 086 ms QT Int : 458 ms P-R-T Axes : 072 072 085 degrees QTc Int : 480 ms Normal sinus rhythm Nonspecific T wave abnormality Prolonged QT Abnormal ECG No previous ECGs available Confirmed by MARTI NELSON [facility] ([id number][facility] on 05/03/2024 5:35:14 PM Referred By: Electronically Signed By:YASMINE KIDD MD [facility] Transcribed By: MUS Signed By Yasmine Kidd MD, [facility] 05/03/24 1735 Normal [facility] echo transthoracicon [facility] echo transthoracic [facility] [place] [address] Echocardiogram Signed Patient: Aaron Olivarez MR#: [id number] 00 : 1960 Acct:[id number] Age/Sex: 63 / M ADM Date: 05/01/24 Loc: Room: [address] [place] [address] Type: ADM IN Attending Dr: Janae Jose MD Ordering Provider: Janae Jose MD Date of Service: 05/02/24 [facility] echo transthoracic: evaluate lv function Copies to: Yasmine Kidd MD, [facility] Janae Jose MD BSA: 2.0 m2 BP: 199/100 mmHg HR: 66 Reason For Study: evaluate lv function History: HTN, COPD, Smoker, Drug Abuse, Alchohol Abuse Interpretation Summary Mild concentric left ventricular hypertrophy. Ejection Fraction = 60-65%. No hemodynamically significant valvular aortic stenosis. There is no prior echocardiogram noted for this patient. Procedure/Quality: A two-dimensional transthoracic echocardiogram with color flow and Doppler was performed. The study was technically good in quality. There is no prior echocardiogram noted for this patient. Left Ventricle: Mild concentric left ventricular hypertrophy. Left ventricular systolic function is normal. Ejection Fraction = 60-65%. Left Atrium: The left atrium appears normal in size. The atrial septum appears normal. Right Atrium: The right atrium appears normal in size. Right Ventricle: The right ventricular size, thickness and function are normal. Aortic Valve: The aortic valve is trileaflet. The aortic valve is mildly calcified. No hemodynamically significant valvular aortic stenosis. Mitral Valve: The mitral valve is mildly sclerotic. Tricuspid Valve: The tricuspid valve is normal in structure. Pulmonic Valve: The pulmonic valve is not well seen, but is grossly normal. Arteries: The aortic root is normal size. Pericardium/Pleura: No pericardial effusion seen. There is no pleural effusion. IVC/Hepatic Veins: The IVC is normal in size with an inspiratory collapse of greater then 50%, suggesting normal right atrial pressure. Miscellaneous: No thrombus, vegetation or mass is seen. Measurements with Normals IVSd: 1.3 cm (0.7-1.1 cm)LVIDd: 4.7 cm (3.7-5.4 cm) LVPWd: 1.1 cm (0.7-1.1 cm)LVIDs: 3.1 cm (2.3-3.6 cm) LA dimension: 3.3 cm (2.3-4.0 cm)Ao root diam: 3.0 cm(2.0-3.6 cm) asc Aorta Diam: 3.8 cm(2.1-3.4cm) Doppler with Normals RVSP(TR): 34.8 mmHg (18-35mmHg) LV V1 max: 90.8 cm/sec (0.7-1.7m/s)MV E max gonzález: 75.8 cm/sec(0.8-1.3m/s) MV A max gonzález: 63.0 cm/sec(0.0-0.0m/s) MV E/A: 1.2 (<1.5) MMode/2D Measurements Calculations RVDd: 3.8 cm FS: 33.4 % Ao root area: LVOT diam: 2.0 cm TAPSE: 2.6 cm EDV(Teich): 7.1 cm2 LVOT area: RV S González: 101.2 ml 3.0 cm2 16.1 cm/sec ESV(Teich): 38.4 ml EF(Teich): 62.1 % Doppler Measurements Calculations MV dec time: E/E' lat: 9.0 MV dec slope: Ao V2 max: 0.33 sec E/E' med: 11.6 229.7 cm/sec2 218.5 cm/sec Ao max P.1 mmHg Ao mean P.2 mmHg Ao V2 mean: 150.9 cm/sec Ao V2 VTI: 42.0 cm LAMONT(I,D): 1.6 cm2 LAMONT(V,D): 1.3 cm2 __ LV V1 max PG: TV max PG: TR max gonzález: 3.3 mmHg 30.0 mmHg 272.8 cm/sec LV V1 mean PG: TR max P.8 mmHg 1.8 mmHg RAP systole: 5.0 mmHg LV V1 mean: 63.0 cm/sec LV V1 VTI: 22.1 cm ___ Transcribed By: SCV Performed At: 05/03/24 0946 Signed By: Yasmine Kidd MD, [facility] 05/03/24 1524 Normal [facility] Protein [Mass/volume] in Ser um or PlasmaOrdered By: Magdy Douglass on 05-03-2024 Protein [Mass/Vol] 5.9 g/dL Low 6.4-8.9 [facility] Comment on above: Performed By: #### C LAN, CBC ####[address] Serum globulin measurement b y calculation (mass/volume)Ordered By: Magdy Douglass on 05-03-2024 Globulin (S) [Mass/Vol] 2.8 g/dL [facility] Comment on above: Performed By: #### C LAN, CBC ####[place] [id number] [place] [id number] [facility] Serum or plasma albumin/glob ulin mass ratioOrdered By: Magdy Douglass on 05-03-2024 Albumin/Globulin [Mass ratio] 1.1 {ratio} [facility] Comment on above: Performed By: #### C LAN, CBC ####[place] [id number] [facility] XR chest 1V portableon 05-03 XR chest 1V portable [facility] Main [place] [id number] XRay Report Signed Patient: Aaron Olivarez MR#: [id number] 00 : 1960 Acct:[id number] Age/Sex: 63 / M ADM Date: 05/01/24 Loc: Room: [address] [place] [address] Type: ADM IN Attending Dr: Janae Jose MD Copies to: MD Víctor Zelaya MD Ordering Provider: Víctor Agrawal MD Date of Service: 05/03/24 XR/XR chest 1V portable: pneumonia SINGLE VIEW CHEST CLINICAL HISTORY: Right lower lobe pneumonia. Shortness of breath, cough. COMPARISON: Outside CT chest 05/01/2024. FINDINGS: Heart appears normal in size. Interval improvement of aeration of the right lung base when compared to the prior study. No pneumothorax pleural effusion or free air. XR/XR chest 1V portable IMPRESSION: IMPROVED AERATION OF THE RIGHT LUNG BASE WHEN COMPARED TO THE PRIOR STUDY. Impression dictated by: Patricio Velázquez Jr., AideOJeremi05/03/2024 10:40 AM Dictation Location: [place] [address] Transcribed By: [facility] 05/03/24 1040 Dictated By: Patricio Velázquez Jr, DO 05/03/24 1038 Signed By: 05/03/24 1040 Normal [facility] C reactive protein [Mass/vol ume] in Serum or PlasmaOrdered By: Magdy Douglass on 05-02-2024 CRP [Mass/Vol] 2.5 mg/dL 0.0-0.5 [facility] C-Reactive Proteinon 024 C-Reactive Protein 2.5 mg/dL High 0.0-0.5 [facility] Comment on above: Result Comment: PERF ORMED BY: [place] [address] PATHOLOGIST [employer] ULISES MILLS M.D. Performed By: #### C RP, CMP, MG, CBC ####[facility] [id number] Complete Blood Count Auto Di ffon 05-02-2024 Basophils (Bld) [#/Vol] 0.0 10*3/uL Normal 0.0-0.2 [facility] Comment on above: Result Comment: PERF ORMED BY: [place] [address] PATHOLOGIST [employer] ULISES MILLS M.D. Performed By: #### C RP, CMP, MG, CBC #### [address] Basophils/100 WBC (Bld) 0.2 % Normal . [facility] Comment on above: Performed By: #### C RP, CMP, MG, CBC #### [address] Eosinophils (Bld) [#/Vol] 0.0 10*3/uL Normal 0.0-0.45 [facility] Comment on above: Performed By: #### C RP, CMP, MG, CBC #### [address] Eosinophils/100 WBC (Bld) 0.0 % Normal . [facility] Comment on above: Performed By: #### C RP, CMP, MG, CBC #### [address] Erythrocyte distribution width (RBC) [Ratio] 15.5 % High 12.0-14.8 [facility] Comment on above: Performed By: #### C RP, CMP, MG, CBC #### [address] Hematocrit (Bld) [Volume fraction] 37.0 % Low 38.8-50.0 [facility] Comment on above: Performed By: #### C RP, CMP, MG, CBC #### [address] Hemoglobin (Bld) [Mass/Vol] 12.3 g/dL Low 13.0-17.0 [facility] Comment on above: Performed By: #### C RP, CMP, MG, CBC #### [place] [id number] [place] Lymphocytes (Bld) [#/Vol] 0.6 10*3/uL Low 1.00-4.8 [facility] Comment on above: Performed By: #### C RP, CMP, MG, CBC #### [address] Lymphocytes/100 WBC (Bld) 7.8 % Normal . [facility] Comment on above: Performed By: #### C RP, CMP, MG, CBC #### [address] MCH (RBC) [Entitic mass] 29.8 pg Normal 27.5-35.2 [facility] Comment on above: Performed By: #### C RP, CMP, MG, CBC #### [address] MCV (RBC) [Entitic vol] 89.7 fL Normal 83.5-101 [facility] Comment on above: Performed By: #### C RP, CMP, MG, CBC #### [address] Mean Corpuscular HGB Conc 33.2 g/dL Normal 32.5-35.6 [facility] Comment on above: Performed By: #### C RP, CMP, MG, CBC #### [address] Monocytes (Bld) [#/Vol] 0.6 10*3/uL Normal 0.0-0.8 [facility] Comment on above: Performed By: #### C RP, CMP, MG, CBC #### [address] Monocytes/100 WBC (Bld) 8.2 % Normal . [facility] Comment on above: Performed By: #### C RP, CMP, MG, CBC #### [address] Neutrophils (Bld) [#/Vol] 6.3 10*3/uL Normal 1.8-7.7 [facility] Comment on above: Performed By: #### C RP, CMP, MG, CBC #### [address] Neutrophils/100 WBC (Bld) 83.8 % Normal . [facility] Comment on above: Performed By: #### C RP, CMP, MG, CBC #### [address] NRBC% 0.2 /100{WBC} Normal 0-0.5 [facility] Comment on above: Performed By: #### C RP, CMP, MG, CBC #### [address] Platelet mean volume (Bld) [Entitic vol] 6.5 fL Low 6.6-10.1 [facility] Comment on above: Performed By: #### C RP, CMP, MG, CBC #### [address] Platelets (Bld) [#/Vol] 276 10*3/uL Normal 150-450 [facility] Comment on above: Performed By: #### C RP, CMP, MG, CBC #### [address] RBC (Bld) [#/Vol] 4.13 10*6/uL Normal 3.90-5.60 [facility] Comment on above: Performed By: #### C RP, CMP, MG, CBC #### [address] WBC (Bld) [#/Vol] 7.5 10*3/uL Normal 4.1-10.5 [facility] Comment on above: Performed By: #### C RP, CMP, MG, CBC #### [address] Comprehensive Metabolic Pane wilner 05-02-2024 Albumin [Mass/Vol] 3.0 g/dL Low 3.5-5.7 [facility] Comment on above: Performed By: #### C RP, CMP, MG, CBC ####[facility] Albumin/Globulin [Mass ratio] 1.2 {ratio} Normal [facility] Comment on above: Performed By: #### C RP, CMP, MG, CBC ####[address] ALP [Catalytic activity/Vol] 123 U/L High 34-104 [facility] Comment on above: Performed By: #### C RP, CMP, MG, CBC ####[address] ALT [Catalytic activity/Vol] 14 U/L Normal 7-52 [facility] Comment on above: Performed By: #### C RP, CMP, MG, CBC ####[address] Anion gap [Moles/Vol] 3.5 mmol/L Low 6.0-15.0 [facility] Comment on above: Performed By: #### C RP, CMP, MG, CBC ####[address] AST [Catalytic activity/Vol] 12 U/L Low 13-39 [facility] Comment on above: Performed By: #### C RP, CMP, MG, CBC ####[address] Bilirubin [Mass/Vol] 0.3 mg/dL Normal 0.3-1.0 [facility] Comment on above: Performed By: #### C RP, CMP, MG, CBC ####[address] Calcium [Mass/Vol] 8.7 mg/dL Normal 8.6-10.3 [facility] Comment on above: Performed By: #### C RP, CMP, MG, CBC ####[address] Chloride [Moles/Vol] 91 mmol/L Low 98-107 [facility] Comment on above: Performed By: #### C RP, CMP, MG, CBC ####[address] CO2 [Moles/Vol] 40.3 mmol/L High 21.0-31.0 [facility] Comment on above: Performed By: #### C RP, CMP, MG, CBC ####[address] Creatinine [Mass/Vol] 0.89 mg/dL Normal 0.70-1.30 [facility] Comment on above: Performed By: #### C RP, CMP, MG, CBC ####[address] Creatinine Clr Calc Pharmacy 90.82 Normal [facility] Comment on above: Performed By: #### C RP, CMP, MG, CBC ####[address] GFR/1.73 sq M.predicted MDRD (S/P/Bld) [Vol rate/Area] mL/min/{1.73_m2} Normal [facility] Comment on above: Performed By: #### C RP, CMP, MG, CBC ####[address] Globulin (S) [Mass/Vol] 2.5 g/dL Normal [facility] Comment on above: Performed By: #### C RP, CMP, MG, CBC ####[address] Glucose [Mass/Vol] 100 mg/dL Normal 70-100 [facility] Comment on above: Result Comment: [place] Glucose Reference Range is dependent on time and content of last meal. Glucose of more than 200 mg/dL in a nonstressed, ambulatory subject supports the diagnosis of Diabetes Mellitus. ADA recommended reference range Performed By: #### C RP, CMP, MG, CBC ####[address] Potassium [Moles/Vol] 4.8 mmol/L Normal 3.5-5.1 [facility] Comment on above: Performed By: #### C RP, CMP, MG, CBC ####[place] [id number] [address] Protein [Mass/Vol] 5.5 g/dL Low 6.4-8.9 [facility] Comment on above: Performed By: #### C RP, CMP, MG, CBC ####[facility] Sodium [Moles/Vol] 130 mmol/L Low 136-145 [facility] Comment on above: Performed By: #### C RP, CMP, MG, CBC ####[facility] Urea nitrogen [Mass/Vol] 19 mg/dL Normal 7-25 [facility] Comment on above: Performed By: #### C RP, CMP, MG, CBC ####[facility] Lactate [Moles/volume] in Se rum or PlasmaOrdered By: Magdy Douglass on 05-02-2024 Lactate [Moles/Vol] 0.6 mmol/L Normal 0.5-2.2 [facility] Comment on above: Result Comment: PERF ORMED BY: [facility] [address] [place] [address] PATHOLOGIST [employer] ULISES MILLS M.D. Performed By: #### H S TROP, LACTIC #### [facility] [address] Legionella Pneumophilia Ag, Uron 05-02-2024 Legionella Pneumophilia Ag, Ur Negative Normal Negative [facility] Comment on above: Order Comment: SOURC E OF SPECIMEN: Urine Result Comment: Pres umptive negative for L. pneumophila serogroup 1 antigen in urine, suggesting no recent or current infection. Legionnaires' disease cannot be ruled out since other serogroups and species may also cause disease. Performed at: - [facility] [id number] Senior Mobile Solutions Architect: Gareth Alford MD, Phone: [phone] Performed By: #### U R STP AG, URLEGIONELLA #### [facility] , Magnesium [Mass/volume] in S andrei or PlasmaOrdered By: Magdy Douglass on 05-02-2024 Magnesium [Mass/Vol] 2.1 mg/dL Normal 1.9-2.7 [facility] Comment on above: Performed By: #### C RP, CMP, MG, CBC ####[facility] [address] [place] [address] [facility] Strep Pneumoniae Ag, Uron Body Fluid Culture Not indicated. Normal . [facility] Comment on above: Order Comment: SOURC E OF SPECIMEN: Urine Performed By: #### U R STP AG, URLEGIONELLA #### [facility] , Organism ID Not indicated. Normal . [facility] Comment on above: Order Comment: SOURC E OF SPECIMEN: Urine Performed By: #### U R STP AG, URLEGIONELLA #### [facility] , Please Note: Normal . [facility] Comment on above: Order Comment: SOURC E OF SPECIMEN: Urine Result Comment: Alice ege of [employer] standards require a culture to be performed on CSF specimens submitted for bacterial antigen testing. (CAP [id number]) Urine specimens will not be cultured. Performed at: [address] [id number] Senior [employer] Solutions Architect: Gareth Alford MD, Phone: [phone] PERFORMED BY: [facility] [address] [place] [address] PATHOLOGIST [employer] ULISES MILLS M.D. Performed By: #### U R STP AG, URLEGIONELLA #### [facility] , Specimen source Nom (Unsp spec) Urine Normal . [facility] Comment on above: Order Comment: SOURC E OF SPECIMEN: Urine Performed By: #### U R STP AG, URLEGIONELLA #### [facility] , Streptococcus Pneumoniae Ag Negative Normal Negative [facility] Comment on above: Order Comment: SOURC E OF SPECIMEN: Urine Performed By: #### U R STP AG, URLEGICARLOSTHADDEUS #### [facility] , Troponin I High Sensitivityo n 05-02-2024 Troponin I High Sensitivity 74.8 pg/mL Off scale high 0.0-20.0 [facility] Comment on above: Result Comment: Crit ical Result : Called to and read back by: JAYLAN YAO at: 05/02/2024 15:02:51 by:JANET PERFORMED BY: [phone] PATHOLOGIST [employer] ULISES MILLS M.D. Performed By: #### H S TROP ####[facility] [address] [place] [address] Troponin I High Sensitivity 99.0 pg/mL Off scale high 0.0-20.0 [facility] Comment on above: Result Comment: Crit ical Result : Called to and read back by: MANAN CHEEK at: 05/02/2024 00:45:01 by:[id number] PERFORMED BY: [place] [phone] PATHOLOGIST [employer] AS[employer] ULISES MILLS M.D. Performed By: #### H S TROP, LACTIC #### [facility] [address] [place] [address] Troponin I.cardiac [Mass/vol ume] in Serum or Plasma by Detection limit <= 0.01 ng/Ordered By: Janae Jose on 05-02-2024 Troponin I.cardiac DL <= 0.01 ng/mL [Mass/Vol] 74.8 pg/mL 0.0-20.0 [facility] Comment on above: Critical Result : Ca lled to and read back by: JAYLAN YAO at: 05/02/2024 15:02:51 by:JANET ACETAMINOPHENon 11-24-2022 Acetaminophen [Mass/Vol] ug/mL Normal 10.0-30.0 [facility] Comment on above: Performed By: #### S ALYC, ACET, CMP, ETH #### [facility] [address] [place] [address] Dr. Renny Azevedo CBC AUTO DIFFon 11-24-2022 BASO # 0.0 103/ul Normal 0.0-0.1 [facility] Comment on above: Performed By: #### C BC #### [facility] [address] [place] [address] [address] Renny Azevedo Basophils/100 WBC (Bld) 0.8 % Normal 0.2-2.0 [facility] Comment on above: Performed By: #### C BC #### [facility] [address] [place] [address] [address] Renny Azevedo EO # 0.3 103/ul Normal 0.0-0.7 [facility] Comment on above: Performed By: #### C BC #### [facility] [address] [place] [address] Dr. Renny Azevedo Eosinophils/100 WBC (Bld) 6.2 % Normal 0.9-7.0 [facility] Comment on above: Performed By: #### C BC #### [facility] [address] [place] [address] Dr. Renny Azevedo Erythrocyte distribution width (RBC) [Ratio] 14.8 % Normal 11.0-15.0 [facility] Comment on above: Performed By: #### C BC #### [facility] [address] [place] [address] Dr. Renny Azevedo Hematocrit (Bld) [Volume fraction] 38.6 % Critically low 42.0-54.0 [facility] Comment on above: Performed By: #### C BC #### [facility] [address] [place] [address] Dr. Renny Azevedo Hemoglobin (Bld) [Mass/Vol] 12.6 g/dL Critically low 14.0-18.0 [facility] Comment on above: Performed By: #### C BC #### [facility] [address] [place] [address] Dr. Renny Azevedo IG # 0.01 10e3/ul Normal 0.00-0.03 [facility] Comment on above: Performed By: #### C BC #### [facility] [address] [place] [address] Dr. Renny Azevedo IG % 0.2 % Normal 0.0-0.5 [facility] Comment on above: Performed By: #### C BC #### [facility] [address] [place] [address] Dr. Renny Azevedo LYMPH # 1.4 103/ul Normal 1.2-3.8 [facility] Comment on above: Performed By: #### C BC #### [facility] [address] [place] [address] Dr. Renny Azevedo Lymphocytes/100 WBC (Bld) 28.1 % Normal 20.5-60.0 [facility] Comment on above: Performed By: #### C BC #### [facility] [address] [place] [address] Dr. Renny Azevedo MANUAL DIFF REQ NO Normal [facility] Comment on above: Performed By: #### C BC #### [facility] [address] [place] [address] Dr. Renny Azevedo MCH (RBC) [Entitic mass] 31.0 pg Normal 25.9-34.0 [facility] Comment on above: Performed By: #### C BC #### [facility] [address] [place] [address] Dr. Renny Azevedo MCHC (RBC) [Mass/Vol] 32.6 g/dL Normal 29.9-35.2 [facility] Comment on above: Performed By: #### C BC #### [facility] [address] [place] [address] Dr. Renny Azevedo MCV (RBC) [Entitic vol] 95.1 fL Critically high 80.0-94.0 [facility] Comment on above: Performed By: #### C BC #### [facility] [address] [place] [address] Dr. Renny Azevedo MONO # 0.3 103/ul Normal 0.3-0.8 [facility] Comment on above: Performed By: #### C BC #### [facility] [address] [place] [address] Dr. Renny Azevedo Monocytes/100 WBC (Bld) 5.8 % Normal 1.7-12.0 [facility] Comment on above: Performed By: #### C BC #### [facility] [address] [place] [address] Dr. Renny Azevedo NEUT # 3.0 103/ul Normal 1.4-6.5 [facility] Comment on above: Performed By: #### C BC #### [facility] [address] [place] [address] Dr. Renny Azevedo Neutrophils/100 WBC (Bld) 58.9 % Normal 43.0-75.0 [facility] Comment on above: Performed By: #### C BC #### [facility] [address] [place] [address] Dr. Renny Azevedo Platelet mean volume (Bld) [Entitic vol] 8.8 fL Critically low 9.5-13.5 [facility] Comment on above: Performed By: #### C BC #### [facility] [address] [place] [address] Dr. Renny Azevedo PLT 260 103/ul Normal 150-450 [facility] Comment on above: Performed By: #### C BC #### [facility] [address] [place] [address] Dr. Renny Azevedo RBC 4.06 106/ul Critically low 4.70-6.10 [facility] Comment on above: Performed By: #### C BC #### [facility] [address] [place] [address] Dr. Renny Azevedo WBC 5.0 103/ul Normal 4.0-11.0 [facility] Comment on above: Performed By: #### C BC #### [facility] [address] [place] [address] CSPINE WO CONon [...] VIC ADAMES Date: 2022-11-24 05:42 Normal [facility] CT FACIAL BONES WO CONon CT FACIAL [...] ANNA RICO Date: 2022-11-24 05:43 Normal [facility] DRUG SCREEN RAPID (URINE)on 11-24-2022 AMP Positive Abnormal NEGATIVE [facility] Comment on above: Performed By: #### D RUGRPD #### [facility] [address] [place] [address] [address] Renny Azevedo BAR Negative Normal NEGATIVE [facility] Comment on above: Performed By: #### D RUGRPD #### [facility] [address] [place] [address] [address] Renny Azevedo BUP Negative Normal NEGATIVE [facility] Comment on above: Performed By: #### D RUGRPD #### [facility] [address] [place] [address] [address] Renny Azevedo BZO Negative Normal NEGATIVE [facility] Comment on above: Performed By: #### D RUGRPD #### [facility] [address] [address] [address] Renny Azevedo SHAYE Positive Abnormal NEGATIVE [facility] Comment on above: Performed By: #### D RUGRPD #### [facility] [address] [place] [address] Dr. Renny Azevedo CUT-OFFS SEE BELOW Normal [facility] Comment on above: Result Comment: AMP (Amphetamine): 500ng/mL, BAR (Barbituates): 200 ng/mL, BZO (Benzodiazepines): 150 ng/mL, BUP (Buprenorphine): 10 ng/mL, SHAYE (Cocaine): 150 ng/mL, mAMP (Methamphetamine): 500 ng/mL, MTD (Methadone): 200 ng/mL, OPI (Opiates): 100 ng/mL, OXY (Oxycodone): 100 ng/mL, PCP (Phencyclidine): 25 ng/mL, PPX (Propoxyphene): 300 ng/mL, THC (Cannabinoids): 50 ng/mL, TCA (Trycyclic Antidepressants): 300 ng/mL Performed By: #### D RUGRPD #### [facility] [address] [place] [address] Dr. Renny Azevedo DRUG CUT HEADER DRUG CLASS TEST SYST EM CUT-OFF CONCENTRATIONS ARE FOLLOWS: Normal [facility] Comment on above: Performed By: #### D RUGRPD #### [facility] [address] [place] [address] Dr. Renny Azevedo mAMP Positive Abnormal NEGATIVE [facility] Comment on above: Performed By: #### D RUGRPD #### [facility] [address] [place] [address] Dr. Renny Azevedo MTD Negative Normal NEGATIVE [facility] Comment on above: Performed By: #### D RUGRPD #### [facility] [address] [place] [address] Dr. Renny Azevedo OPI Negative Normal NEGATIVE [facility] Comment on above: Performed By: #### D RUGRPD #### [facility] [address] [place] [address] Dr. Renny Azevedo OXY Negative Normal NEGATIVE [facility] Comment on above: Performed By: #### D RUGRPD #### [facility] [address] [place] [address] Dr. Renny Azevedo PCP Negative Normal NEGATIVE [facility] Comment on above: Performed By: #### D RUGRPD #### [facility] [address] [place] [address] Dr. Renny Azevedo PPX Negative Normal NEGATIVE [facility] Comment on above: Performed By: #### D RUGRPD #### [facility] [address] [place] [address] Dr. Renny Azevedo TCA Negative Normal NEGATIVE [facility] Comment on above: Performed By: #### D RUGRPD #### [facility] [address] [place] [address] Dr. Renny Azevedo THC Negative Normal NEGATIVE [facility] Comment on above: Performed By: #### D RUGRPD #### [facility] [address] [place] [address] Dr. Renny Azevedo ETHANOL (BLD ALC)on 11-24-19 23 ALC NOTE NOTE: 80 mg/dl is th e legal limit for a blood alcohol level Normal [facility] Comment on above: Performed By: #### E TH #### [facility] [address] [place] [address] Dr. Renny Azevedo Ethanol [Mass/Vol] 169 mg/dL Normal [facility] Comment on above: Performed By: #### E TH #### [facility] [address] [place] [address] Dr. Renny Azevedo ALC NOTE NOTE: 80 mg/dl is th e legal limit for a blood alcohol level Normal [facility] Comment on above: Performed By: #### S ALYC, ACET, CMP, ETH #### [facility] [address] [place] [address] Dr. Renny Azevedo Ethanol [Mass/Vol] 239 mg/dL Normal [facility] Comment on above: Performed By: #### S ALYC, ACET, CMP, ETH #### [facility] [address] [place] [address] Dr. Renny Azevedo PROF 14(COMP METB)on 023 Albumin [Mass/Vol] 4.2 g/dL Normal 3.4-5.0 [facility] Comment on above: Performed By: #### S ALYC, ACET, CMP, ETH #### [facility] [address] [place] [address] Dr. Renny Azevedo Albumin/Globulin [Mass ratio] 1.3 {ratio} Normal [facility] Comment on above: Performed By: #### S ALYC, ACET, CMP, ETH #### [facility] [address] [place] [address] Dr. Renny Azevedo ALP [Catalytic activity/Vol] 99 U/L Normal 46-116 [facility] Comment on above: Performed By: #### S ALYC, ACET, CMP, ETH #### [facility] [address] [place] [address] Dr. Renny Azevedo ALT [Catalytic activity/Vol] 157 U/L Critically high 16-63 [facility] Comment on above: Performed By: #### S ALYC, ACET, CMP, ETH #### [facility] [address] [place] [address] Dr. Renny Azevedo Anion gap [Moles/Vol] 10.0 mmol/L Normal Th [facility] Comment on above: Performed By: #### S ALYC, ACET, CMP, ETH #### [facility] [address] [place] [address] Dr. Renny Azevedo AST [Catalytic activity/Vol] 362 U/L Critically high 15-37 [facility] Comment on above: Performed By: #### S ALYC, ACET, CMP, ETH #### [facility] [address] [place] [address] Dr. Renny Azevedo Bilirubin [Mass/Vol] 0.3 mg/dL Normal 0.2-1.0 [facility] Comment on above: Performed By: #### S ALYC, ACET, CMP, ETH #### [facility] [address] [place] [address] Dr. Renny Azevedo Calcium [Mass/Vol] 8.7 mg/dL Normal 8.5-10.1 [facility] Comment on above: Performed By: #### S ALYC, ACET, CMP, ETH #### [facility] [address] [place] [address] Dr. Renny Azevedo Chloride [Moles/Vol] 92 mmol/L Critically low 98-107 [facility] Comment on above: Performed By: #### S ALYC, ACET, CMP, ETH #### [facility] [address] [place] [address] Dr. Renny Azevedo CO2 [Moles/Vol] 30.4 mmol/L Normal 21.0-32.0 [facility] Comment on above: Performed By: #### S ALYC, ACET, CMP, ETH #### [facility] [address] [address] [address] Renny Azevedo Creatinine [Mass/Vol] 1.60 mg/dL Critically high 0.70-1.30 [facility] Comment on above: Performed By: #### S ALYC, ACET, CMP, ETH #### [facility] [address] [address] [address] Renny Azevedo EGFR-AF SAO TOMEAN 53 mL/min/1.73m2 Critically low >=60 [facility] Comment on above: Performed By: #### S ALYC, ACET, CMP, ETH #### [facility] [address] [address] [address] Renny Azevedo EGFR-NON AF SAO TOMEAN 44 mL/min/1.73m2 Critically low >=60 [facility] Comment on above: Performed By: #### S ALYC, ACET, CMP, ETH #### [facility] [address] [address] [address] Renny Azevedo Globulin (S) [Mass/Vol] 3.2 g/dL Normal [facility] Comment on above: Performed By: #### S ALYC, ACET, CMP, ETH #### [facility] [address] [address] [address] Renny Azevedo Glucose [Mass/Vol] 82 mg/dL Normal 74-106 [facility] Comment on above: Performed By: #### S ALYC, ACET, CMP, ETH #### [facility] [address] [address] [address] Renny Azevedo Potassium [Moles/Vol] 3.4 mmol/L Critically low 3.5-5.1 [facility] Comment on above: Performed By: #### S ALYC, ACET, CMP, ETH #### [facility] [address] [address] [address] Renny Azevedo Protein [Mass/Vol] 7.4 g/dL Normal 6.4-8.2 [facility] Comment on above: Performed By: #### S ALYC, ACET, CMP, ETH #### [facility] [address] [place] [address] Dr. Renny Azevedo Sodium [Moles/Vol] 129 mmol/L Critically low 136-145 Th [facility] Comment on above: Performed By: #### S ALYC, ACET, CMP, ETH #### [facility] [address] [place] [address] Dr. Renny Azevedo Urea nitrogen [Mass/Vol] 17.0 mg/dL Normal 7.0-18.0 [facility] Comment on above: Performed By: #### S ALYC, ACET, CMP, ETH #### [facility] [address] [place] [address] Dr. Renny Azevedo Urea nitrogen/Creatinine [Mass ratio] 10.6 mg/mg Normal [facility] Comment on above: Performed By: #### S ALYC, ACET, CMP, ETH #### [facility] [address] [place] [address] Dr. Renny Azevedo SALICYLATEon 11-24-2022 SALICYLATE 4.7 mg/dL Normal <=19.9 [facility] Comment on above: Performed By: #### S ALYC, ACET, CMP, ETH #### [facility] [address] [place] [address] LUMBAR SPINE WO CONTRASTo n 10-14-2018 CT LUMBAR SPINE WO CONTRAST EXAMINATION:CT OF THE LUMBAR SPINE WITHOUT CONTRAST 10/14/2018TECHNIQUE:CT of the lumbar spine was performed without the administration ofintravenous contrast. Multiplanar reformatted images are provided for review.Dose modulation, iterative reconstruction, and/or weight based adjustment ofthe mA/kV was utilized to reduce the radiation dose to as low as reasonablyachievable.COMP ARISON:NoneHISTORY:ORDERI NG SYSTEM PROVIDED HISTORY: lower back pain with radiation down intothe LLETECHNOLOGIST PROVIDED HISTORY:lower back pain with radiation down into the LLEFINDINGS:BONES/ALIGNME NT: There is normal alignment of the spine. [...] by:VANESA Tavaresigned by:Jay Gross MD10/14/18Final result Normal [facility] COMPLETE BLOOD COUNT W/DIFFo n 07-02-2018 Basophils Auto #/vol (Bld) 0.02 10*3/uL Normal 0.00-0.20 [facility] [employer] [facility] Comment on above: Performed By: #### C BCD ####[facility] [id number] [place], [place], Basophils/100 WBC Auto (Bld) 0.5 % Normal <=1.9 [facility] Comment on above: Performed By: #### C BCD ####[facility] [id number] [place], [place], Eosinophils Auto #/vol (Bld) 0.08 10*3/uL Normal 0.00-0.70 [facility] Comment on above: Performed By: #### C BCD ####[facility] [id number] [place] [address], Eosinophils/100 WBC Auto (Bld) 2.0 % Normal 0.1-4.0 [facility] Comment on above: Performed By: #### C BCD ####[facility] [id number] [place], [place], Erythrocyte distribution width Auto Ratio (RBC) 13.5 % Normal 11.5-14.5 [facility] Comment on above: Performed By: #### C BCD ####[facility] [id number] [place] [address], Hematocrit Auto Volume Fraction (Bld) 42.3 % Normal 41.0-53.0 [facility] Comment on above: Performed By: #### C BCD ####[facility] [id number] [place], [place], Hemoglobin mass conc (Bld) 13.9 g/dL Normal 13.9-16.3 [facility] Comment on above: Performed By: #### C BCD ####[facility] [id number] [place], Lymphocytes Auto #/vol (Bld) 1.22 10*3/uL Normal 1.00-4.80 [facility] Comment on above: Performed By: #### C BCD ####[facility] [id number] [place] [address], Lymphocytes/100 WBC Auto (Bld) 30.9 % Normal 24.0-44.0 [facility] Comment on above: Performed By: #### C BCD ####[facility] [id number] [place] [address], MCH Auto Entitic mass (RBC) 28.8 pg Normal 26.0-34.0 [facility] Comment on above: Performed By: #### C BCD ####[facility] [id number] [place] [address], MCHC Auto mass conc (RBC) 32.9 g/dL Normal 32.0-35.9 [facility] Comment on above: Performed By: #### C BCD ####[facility] [id number] [place] [address], MCV Auto Entitic volume (RBC) 88 fL Normal 80-100 [facility] Comment on above: Performed By: #### C BCD ####[facility] [id number] [place], Monocytes Auto #/vol (Bld) 0.23 10*3/uL Normal 0.20-1.00 [facility] Comment on above: Performed By: #### C BCD ####[facility] [id number] [place] [address], Monocytes/100 WBC Auto (Bld) 5.8 % Normal 2.0-11.0 [facility] Comment on above: Performed By: #### C BCD ####S PATHOLOGY [id number] [place], Neutrophils Auto #/vol (Bld) 2.40 10*3/uL Normal 1.50-8.00 [facility] Comment on above: Performed By: #### C BCD ####[facility] [id number] [place], Neutrophils/100 WBC Auto (Bld) 60.8 % Normal 31.0-76.0 [facility] Comment on above: Performed By: #### C BCD ####[facility] [id number] [place], [place], Platelet mean volume Auto Entitic volume (Bld) 9.6 fL Normal 8.5-11.5 [facility] Comment on above: Performed By: #### C BCD ####[facility] [id number] [place] [address], Platelets Auto #/vol (Bld) 243 10*3/uL Normal 150-400 [facility] Comment on above: Performed By: #### C BCD ####[facility] [id number] [place], RBC Auto #/vol (Bld) 4.83 10*6/uL Normal 4.50-5.[address] [facility] Comment on above: Performed By: #### C BCD ####[facility] [id number] [place], WBC Auto #/vol (Bld) 4.0 10*3/uL Low 4.5-11.5 The [facility] Comment on above: Performed By: #### C BCD ####[facility] [id number] [place], [place], HEPATIC FUNCTION PANELon Albumin mass conc 4.2 g/dL Normal 3.4-5.1 [facility] Comment on above: Performed By: #### H EPATIC ####S PATHOLOGY [id number] [place], [place], ALK 92 IU/L Normal 40-200 [facility] Comment on above: Performed By: #### H EPATIC ####S PATHOLOGY [id number] [place], ALT enzyme act/vol 18 U/L Normal 7-40 [facility] Comment on above: Performed By: #### H EPATIC ####[facility] [id number] [place], AST enzyme act/vol 21 U/L Normal 7-40 [facility] Comment on above: Performed By: #### H EPATIC ####[facility] [id number] [place], Bilirubin mass conc 0.10 mg/dL Normal 0.10-0.30 [facility] Comment on above: Performed By: #### H EPATIC ####[facility] [id number] [place] [address], Bilirubin Ql (U) 0.6 mg/dL Normal 0.1-1.5 [facility] Comment on above: Performed By: #### H EPATIC ####[facility] [id number] [place] [address], Protein mass conc 6.1 g/dL Normal 5.8-8.1 [facility] Comment on above: Performed By: #### H EPATIC ####S PATHOLOGY [id number] [place] [address], HEPATITIS B CORE ANTIBODYon 07-02-2018 CORE Nonreactive Normal Nonreactive [facility] Comment on above: Performed By: #### A NTI-HBS, HBSAG, CORE ####[facility] [id number] [place], HEPATITIS B SURFACE ANTIBODY on 07-02-2018 ANTI-HBS < 3.1 Normal [facility] Comment on above: Order Comment: Nonre active: Samples < 7.5 mIU/mLReactive: Samples >/= 10.0 mIU/mLThe accepted criteria for immunity to HBV is anti-HBs activity >/= 10 mIU/mL, as defined by the WHO International Reference Preparation. Performed By: #### A NTI-HBS, HBSAG, CORE ####[facility] [id number] [place], HEPATITIS B SURFACE ANTIGENo n 07-02-2018 Body surface area Derived from formula Non-Reactive Normal Non-Reactive [facility] Comment on above: Performed By: #### A NTI-HBS, HBSAG, CORE ####[facility] [id number] [place], HEPATITIS C ANTIBODYon 07-02 HCV Reactive Abnormal Nonreactive [facility] Comment on above: Performed By: #### H CV, HEP C QNT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 REQUEST Facility: Start: 10-14-2018 End: 10-14-2018 Emergency department patient visit [facility] Start: 07-02-2018 End: 07-02-2018 Patient encounter UNKNOWN PROVIDER Facility:[facility] Start: 01-29-2018 End: 02-05-2018 Evaluation and management of inpatient ELIAN V TAVONI [facility] Start: 09-29-2017 End: 12-11-2017 Emergency department patient visit None Provider Facility:[facility] Start: 06-07-2017 End: 06-07-2017 Emergency department patient visit [facility] Start: 05-27-2017 End: 05-27-2017 Emergency department patient visit [facility] Procedures Date Procedure Procedure Detail Performing Clinician Start: 05-03-2024 CT of head without contrast DO Sulaiman Feldman Work Phone: Start: 05-03-2024 Plain chest X-ray DO Casimiro Feldman Work Phone: Start: 10-14-2018 Ct lumbar spine w/o contrast [...] visual color cmprsn meths UNKNOWN PROVIDER Start: 02-05-2018 DISCHARGE PATIENT SREEK ANTH INDURTI Start: 01-30-2018 EKG 12-LEAD ELIAN INDURTI Start: 01-30-2018 CBC WITH AUTO DIFFERENTIAL ELIAN INDURTI Start: 01-30-2018 COMPREHENSIVE METABO LIC PANEL ELIAN INDURTI Start: 01-30-2018 Lipid panel ELIAN INDURTI Start: 01-30-2018 T3 ELIAN INDURTI Start: 01-30-2018 T4 ELIAN INDURTI Start: 01-30-2018 TSH WITH REFLEX SREEKAN TH INDURTI Start: 01-29-2018 UA W/REFLEX CULTURE SRE EKANTH INDURTI Start: 01-29-2018 URINE DRUG SCREEN SREEK ANTH INDURTI Start: 01-29-2018 IP CONSULT TO HISTOR Y AND PHYSICAL ELIAN INDURTI Start: 01-29-2018 MISCELLANEOUS NURSIN G CARE ORDER (SPECIFY) ELIAN INDURTI Start: 01-29-2018 VITAL SIGNS ELIAN INDURTI Start: 01-29-2018 FULL CODE ELIAN INDURTI Start: 01-29-2018 PATIENT STATUS (DIRECT) ELIAN INDURTI Start: 01-29-2018 DIET GENERAL ELIAN INDURTI Plan of Treatment Date Care Activity Detail Author Start: 05-06-2024 [facility] Start: 05-06-2024 Referral to rehabili tation physician [facility] Start: 05-02-2024 Administration of prophylactic treatment [facility] Start: 05-02-2024 [facility] Start: 05-01-2024 Consultation [facility] Start: 05-01-2024 Hospital admission [facility] Legionella pneumophi la Ag [Presence] in Urine [facility] Patient Education Community-acqu ired pneumonia in adults COPD Exacerbation, Adult ED Know your Meds [facility] Work Phone: Patient referral [facility] Work Phone: Specimen source [Identifier] of Unspecified specimen [facility] Streptococcus pneumo niae Ag [Presence] in Unspecified specimen [facility] Payers Date Payer Category Payer Medicare [id number] 2024 Medicare [id number] 2024 Self-pay [id number] 2017 Unknown [id number] 2017 Unknown [id number] 1995 Medicare [id number] 1960 Unknown [id number] 1960 Unknown [id number] 1960 Unknown [id number] Medicaid Medicaid [id number] Medicaid Medicaid Out of State [id number] Unknown [id number] Social History Date Type Detail Facility Start: 05-06-2024 Tobacco smoking stat NHIS Current Heavy tobacco smoker [facility] Start: 1960 Sex Assigned At Male [facility] Goals Date Patient Goal Desired Activity /State Functional Status Date Assessment Result Facility 05-06-2024 Functional status Patient at Baseline [facility] Work Phone: Mental Status Date Assessment Result Facility 05-06-2024 Cognitive function Cognitive Sta tus Patient at Baseline [facility] Work Phone: Clinical Notes 05-02-2024 to 07-14-2024 Note Date & Type Note Facility 07-14-2024 Note ADDENDUM: Results were called to the ordering physician by results communication Electronically Signed by: MATI VALERIO on MonJul 14, 2024 10:18:21 AM EDT EXAMINATION: CT OF THE HEAD WITHOUT CONTRAST 07/14/2024 9:41 am TECHNIQUE: CT of the head was performed without the administration of intravenous contrast. Automated exposure control, iterative reconstruction, and/or weight based adjustment of the mA/kV was utilized to reduce the radiation dose to as low as reasonably achievable. COMPARISON: None. HISTORY: ORDERING SYSTEM PROVIDED HISTORY: stroke TECHNOLOGIST PROVIDED HISTORY: stroke Decision Support Exception - unselect if not a suspected or confirmed emergency medical condition->Emergency Medical Condition (MA) Reason for Exam: stroke alert FINDINGS: BRAIN/VENTRICLES: There is no acute intracranial hemorrhage, mass effect or midline shift. No abnormal extra-axial fluid collection. The elmore-white differentiation is maintained without evidence of an acute infarct. There is prominence of the ventricles and sulci due to global parenchymal volume loss. There are nonspecific areas of hypoattenuation within the periventricular and subcortical white matter, which likely represent chronic microvascular ischemic change. ORBITS: The visualized portion of the orbits demonstrate no acute abnormality. SINUSES: The visualized paranasal sinuses and mastoid air cells demonstrate no acute abnormality. SOFT TISSUES/SKULL: No acute abnormality of the visualized skull or soft tissues. IMPRESSION: No acute intracranial abnormality. Interpreted by: Mati Valerio MD Signed by: Mati Valerio MD 07/14/24 Edited Result - FINAL [facility] 05-06-2024 Discharge summary Note Date/Time May 06, 2024 11:44am [facility] [address] [place], [place] [id number] Discharge Summary Signed Patient: Aaron Olivarez MR#: [id number] : 1960 Acct:[id number] Age/Sex: 63 / M Adm Date: 4 Loc: Room: [address] [place] [address]: Kiko Maldonado MD Copies to: MD Sulaiman Younger, DO~ Providers Date of Discharge: 05/06/24 Discharging Provider: Kiko Maldonado Primary Care Provider: Sulaiman Feldman Consults: 05/01/24 23:20 Consult to Pulmonology Routine Comment: Consulting Provider: Víctor Agrawal Reason For Exam: Critical Care Management Has Provider Been Notified: Yes Date of Notification: 05/02/24 Time of Notification: 07:43 05/02/24 15:26 Consult to Occupational Therapy Routine Comment: Physician Instructions: Consult to OT for:: Evaluation and Treat Consult to Physical Therapy Routine Comment: Physician Instructions: Consult to PT for:: Evaluation and Treat 05/06/24 09:30 Consult to Physiatry Routine Comment: Consulting Provider: [facility] - [facility] Reason For Exam: rehabilitation needs/post acute care planning Has Provider Been Notified: Yes Date of Notification: 05/06/24 Time of Notification: 09:31 Discharge Diagnosis Final Diagnosis Final Discharge Diagnosis: Acute hypoxic and hypercarbic respiratory failure due to community-acquired pneumonia and COPD exacerbation Acute metabolic encephalopathy due to the above Chronic problems History of opiate IV drug use History of alcoholism Tobacco use Hypertension Summary Hospital Course Hospital course: Patient is 63-year-old male, with history of alcohol use as well as heroin use. He is on Suboxone. He presented to the emergency department at [facility] on May 01, with complaints of productive cough, dyspnea and EMS identified lethargy and significant hypoxemia. Evaluation with CT chest indicated right lower lobe consolidation suggestive of pneumonia. Patient was transferred to us he received treatment in the intensive care unit with azithromycin, ceftriaxone, bronchodilators, IV steroids.An echocardiogram was unremarkable. He required high flow nasal cannula oxygen he received sedation per CIWA scale protocol. His oxygen requirements decreased. There were no notable complications. Recommendation was for him to undergo inpatient rehab. However on May 06 the patient demanded to be discharged home. He was awake alert and oriented. I explained to him that in my view it is not the best choice for him. However he remained adamant that he wished to go home. His son and some friends will help him. He was referred to outpatient PT. A brief course of steroids and outpatient antibiotics will be continued orally. Time Spent with Patient Time spent providing/coordinating discharge services (# min): 40 Discharge Plan Discharge Plan Patient Disposition: Home Activity: No Activity Restriction Diet: Regular Instructions: Community-acquired pneumonia in adults, COPD Exacerbation, Adult ED, Know your Meds Prescriptions: New methylprednisolone [Medrol] 16 mg tablet 16 mg PO DAILY 5 Days Qty: 5 0RF levofloxacin 750 mg tablet 750 mg PO DAILY Qty: 5 0RF Continued albuterol 90 mcg/actuation aerosol See Rx Instructions inhalation Q4HR PRN (Reason: rescue inhaler) Rx Instructions: 2 puffs inhaled every 4 hours PRN; 2 puffs q4H PRN amlodipine 10 mg tablet 10 mg PO DAILY buprenorphine-naloxone [Suboxone] 8-2 mg film 1 film buccal TID fluticasone propion-salmeterol [Advair Diskus] 250-50 mcg/dose blister with device 1 inh inhalation BID gabapentin 800 mg tablet 800 mg PO TID levothyroxine [Euthyrox] 137 mcg tablet 137 mcg PO DAILY nicotine 10 mg cartridge See Rx Instructions inhalation Q1H PRN (Reason: to stop smoking) Rx Instructions: 2puffs inhaled every 1 hour PRN; 2puffs inh Q1H PRN to stop smoking / no morethan 16 per day Other Ambulatory Orders: DME Home Medical Equipment (Routine) Timeframe: 20240506 Location: Determined by Patient Ordered By: Kiko Maldonado PT/OT/SP OutPatient Referral (Routine) Timeframe: 20240506 Location: Determined by Patient Ordered By: Kiko Maldonado Follow Up: Sulaiman Feldman DO [Primary Care Provider] - (His office was notified of your discharge. We requested that they contact you with a post hospital appointment. If they do not contact you by Monday please call them to schedule.) Exam Physical Exam Vital Signs: Temp Pulse Resp BP Pulse Ox O2 Del Method O2 Flow Rate 98.2 F 62 20 111/56 L 93 L Room Air 2 05/06/24 07:46 05/06/24 10:47 05/06/24 10:47 05/06/24 10:47 05/06/24 10:47 05/06/24 10:47 05/06/24 07:34 FiO2 40 05/04/24 01:00 Diagnostic Studies Completed and Pending Studies Pending studies at discharge: 05/02/24 01:50 Legionella Pneumophilia Ag, Ur Routine Strep Pneumoniae Ag, Ur Routine 05/02/24 13:50 Sputum Culture Routine 05/03/24 12:57 Sputum Culture Routine Documented By: Kiko Maldonado MD 05/06/24 1139 Signed By: <Electronically signed by Kiko Maldonado MD> 05/06/24 1421 [facility] Work Phone: 1(512) 387-285606-24-2024 Progress note Author Thanh Paris [facility] May 06, 2024 10:16am Note Date/Time May 06, 2024 10:1 6am [facility] [address] [place] [address] Pulmonology Progress Note Signed Patient: Aaron Olivarez MR#: [id number] : 1960 Acct:[id number] Age/Sex: 63 / M Adm Date: 4 Loc: Room: [address] [place] [address] Type: ADM IN Attending Dr: Janae Jose MD Copies to: ~ Date of Service: 05/06/2024 Subjective Subjective Narrative: Patient voices no complaints at the time my evaluation. He is very interested in being discharged today as he can relax at home as opposed to being in the hospital. He knows he is in a hospital but does not know that he is at [facility] in [place]. He also knows it is 2023. Exam Physical Exam Vital Signs: Temp Pulse Resp BP Pulse Ox O2 Del Method O2 Flow Rate 98.2 F 60 19 119/63 92 L Room Air 2 05/06/24 07:46 05/06/24 10:00 05/06/24 10:00 05/06/24 10:00 05/06/24 10:00 05/06/24 10:00 05/06/24 07:34 FiO2 40 05/04/24 01:00 Const Orientation: alert and awake HEENT Head: normocephalic Ears: hearing grossly normal bilaterally and external ears normal Neck Lymphatic: no lymphadenopathy noted Chest Chest palpation & inspection: normal inspection of the chest Resp Effort & Inspection: normal respiratory effort Auscultation: clear to auscultation bilaterally Cardio Rate: regular rate Rhythm: regular rhythm GI Inspection: normal to inspection Rectal Exam: visual inspection normal Extrem General: normal to inspection Psych Attitude: cooperative Objective Intake and Output I&O - Last 24 Hours: Intake & Output 05/05/24 05/06/24 05/06/24 23:59 07:59 15:59 Intake Total 550 / 1750 750 / 750 Output Total 200 / 550 200 / 200 Balance 350 / 1200 550 / 550 Weight 171 lb 4.787 oz Labs 05/04/24 03:22 05/05/24 03:59 Assessment/Plan Assessment/Plan (1) Acute respiratory failure with hypoxia and hypercapnia: (2) Alcohol withdrawal: (3) Metabolic encephalopathy: (4) Acute exacerbation of chronic obstructive pulmonary disease (COPD): (5) Community acquired pneumonia: (6) Alcohol abuse: (7) Nicotine dependence: (8) History of heroin abuse: (9) Right lower lobe pneumonia: (10) Uncontrolled hypertension: Plan Hospital day #5 for patient admitted for presumptive acute exacerbation of COPD in the context of alcohol withdrawal with patient also having history of drug abuse. Patient has been weaned off oxygen and is on room air. I believe the patient should come pleat a full 10-day course of antibiotics (another 5 days) and would recommend fairly rapid steroid taper. Patient also should have walk study before discharge. However, I did warn him of the adverse consequences of smoking while wearing supplemental oxygen should he use this at home. Patient is stable for transfer out of the ICU. I have no further recommendations. Documented By: Thanh Paris MD 4 1013 Signed By: <Electronically signed by MD Thanh Paris> 05/06/24 1016 [facility] Work Phone: 1(119) 423-308606-23-2024 Progress note Author Janae Jose [facility] May 05, 2024 1:27pm Note Date/Time May 05, 2024 1:22 pm [facility] [address] [place] [address] Hospitalist Progress Note Signed Patient: Aaron Olivarez MR#: [id number] : 1960 Acct:[id number] Age/Sex: 63 / M Adm Date: 4 Loc: Room: [address] [place] [address] Type: ADM IN Attending Dr: Janae Jose MD Copies to: ~ Date of Service: 05/05/2024 Subjective Subjective Narrative: On examination patient on 2 L oxygen eating his lunch. He is currently very noncooperative and not answering my questions. He is awake and oriented. Moving all 4 extremities. Exam Physical Exam Vital Signs: Temp Pulse Resp BP Pulse Ox O2 Del Method O2 Flow Rate 98.2 F 57 L 20 102/67 94 L Nasal Cannula 2 05/05/24 12:00 05/05/24 12:00 05/05/24 12:00 05/05/24 12:00 05/05/24 12:00 05/05/24 12:00 05/05/24 12:00 FiO2 40 05/04/24 01:00 Const Orientation: alert and awake Resp Effort & Inspection: normal respiratory effort and able to speak in complete sentences Auscultation: no rales, no rhonchi and no wheezes Cardio Rate: regular rate Rhythm: regular rhythm Heart Sounds: S1 normal and S2 normal GI Palpation: soft, not firm, no guarding and nontender Neuro General: patient alert, patient awake, moves all extremities and no focal motor deficits Extrem General: no clubbing, cyanosis or edema and no calf tenderness Objective Lab Results 05/04/24 03:22 05/05/24 03:59 Meds Allergies and Active Meds Allergies No Known Drug Allergies Allergy (Verified 05/01/24 23:49) Unknown Reaction Active Meds: Active Medications Generic Name Dose Route Start Last Admin Trade Name Freq PRN Reason Stop Dose Admin Acetaminophen 650 mg 05/01/24 23:20 05/03/24 21:06 Acetaminophen 325 Mg Tablet PO 05/01/25 23:19 650 mg Q6HR PRN Administration Fever Albuterol 2.5 mg 05/01/24 23:20 05/02/24 08:05 Albuterol Neb 2.5 Mg/3 Ml Vial.Neb INHALATION 05/01/25 23:19 2.5 mg Q3H PRN Administration Shortness Of Breath Amlodipine Besylate 10 mg 05/03/24 09:00 05/05/24 08:16 Amlodipine 10 Mg Tablet PO 05/03/25 08:59 10 mg DAILY CORBY Administration Budesonide/Formoterol Fumarate 2 puff 05/02/24 21:00 05/05/24 09:01 Budesonide/Formoterol 160-4.5 Mcg 60 Puff/6 Gm Hfa.Aer.Ad INHALATION 05/02/25 20:59 2 puff BID CORBY Administration Buprenorphine/Naloxone 1 film 05/02/24 22:00 05/05/24 08:16 Buprenorphine/Naloxone 8mg/2mg Film BUCCAL 10/29/24 21:59 1 film TID CORBY Administration Enoxaparin Sodium 40 mg 05/02/24 10:00 05/04/24 10:31 Enoxaparin 40 Mg/0.4 Ml Syringe SUBCUT 05/02/25 09:59 40 mg DAILY@10 CORBY Administration Folic Acid 1 mg 05/04/24 09:00 05/05/24 08:16 Folic Acid 1 Mg Tablet PO 05/04/25 08:59 1 mg DAILY CORBY Administration Hydralazine HCl 10 mg 05/02/24 13:30 05/04/24 08:37 Hydralazine 20 Mg/Ml Vial IV-PUSH 05/02/25 13:29 10 mg Q4H PRN Administration SBP>180 Hydralazine HCl 50 mg 05/03/24 10:00 05/05/24 08:16 Hydralazine 50 Mg Tablet PO 05/03/25 09:59 50 mg TID CORBY Administration Ceftriaxone Sodium 1 gm in 50 mls @ 100 mls/hr 05/02/24 14:00 05/05/24 08:26 Rocephin IV Infused Q24H CORBY Infusion Azithromycin 500 mg in 250 mls @ 250 mls/hr 05/02/24 00:30 05/05/24 08:26 Zithromax IV Infused Q24H CORBY Infusion Labetalol HCl 10 mg 05/03/24 10:41 Labetalol 100 Mg/20 Ml Vial IV-PUSH 05/03/25 10:40 Q4H PRN Hypertension Levothyroxine Sodium 137 mcg 05/03/24 06:30 05/05/24 06:19 Levothyroxine 137 Mcg Tablet PO 05/03/25 06:29 137 mcg DAILY@0630 CORBY Administration Lorazepam 0 mg 05/04/24 02:16 05/04/24 21:07 Lorazepam 1 Mg Tablet PO 10/31/24 02:15 1 mg PROTOCOL PRN Administration Alcohol Withdrawal Protocol Lorazepam 0 mg 05/04/24 02:16 05/05/24 05:02 Lorazepam 2 Mg/Ml Vial IV-PUSH 10/31/24 02:15 2 mg PROTOCOL PRN Administration Alcohol Withdrawal Protocol Metoprolol Tartrate 25 mg 05/03/24 10:00 05/05/24 08:16 Metoprolol Tartrate 25 Mg Tablet PO 05/03/25 09:59 25 mg BID CORBY Administration Multivitamins 1 tab 05/04/24 09:00 05/05/24 08:16 Multivitamin 1 Tab Tablet PO 05/04/25 08:59 1 tab DAILY CORBY Administration Prednisone 40 mg 05/06/24 09:00 Prednisone 20 Mg Tablet PO 05/06/25 08:59 DAILY CORBY Sodium Chloride 10 ml 05/02/24 09:38 05/04/24 04:31 Sodium Chloride 0.9 % 10 Ml Vial.Pf INJECTION 05/02/25 09:37 10 ml Q4H PRN Administration Ativan dilution Thiamine HCl 100 mg 05/04/24 09:00 05/05/24 08:16 Thiamine 100 Mg Tablet PO 05/04/25 08:59 100 mg BID CORBY Administration A&P - Hospitalist Assessment/Plan (1) Community acquired pneumonia: (2) Acute respiratory failure with hypoxia and hypercapnia: (3) Acute exacerbation of chronic obstructive pulmonary disease (COPD): (4) Tobacco abuse: (5) Elevated troponin: Plan Acute respiratory failure with hypoxia and hypercapnia/COPD exacerbation/pneumonia Patient has been weaned off high flow oxygen currently on 2 L oxygen Pulmonary service on consult to manage respiratory failure. Switch to oral steroids. Continue IV antibiotics. As per the record outside facility CTA chest was negative for PE but showed right lower lobe consolidation suggestive of pneumonia. Acute metabolic encephalopathy/substance abuse/acute alcohol withdrawal Suspecting acute alcohol withdrawal given history of alcohol abuse. Continue CIWA protocol. His list of home medication also include Suboxone which has been started. CT had negative for acute abnormality. B12 and folate level in normal range. TSH slightly elevated Uncontrolled hypertension Improved. Continue amlodipine, metoprolol and hydralazine. IV hydralazine and labetalol as needed for accelerated hypertension. Lovenox for DVT prophylaxis. Elevated troponin Troponin trending down without significant elevation. Suspecting type II [place] from hypoxia. Echocardiogram showing preserved ejection fraction with mild LVH. No wall motion abnormality seen. EKG negative for acute ischemic changes. Documented By: Janae Jose MD 05/05/24 1319 Signed By: <Electronically signed by Janae Jose MD> 05/05/24 1327 [facility] Work Phone: 1(777) 995-522906-23-2024 Progress note Author Víctor Agrawal [facility] May 05, 2024 11:29am Note Date/Time May 05, 2024 11:2 9am [facility] [address] [place] [address] Pulmonology Progress Note Signed Patient: Aaron Olivarez MR#: [id number] : 1960 Acct:[id number] Age/Sex: 63 / M Adm Date: 4 Loc: Room: [address] [place] [address] Type: ADM IN Attending Dr: Janae Jose MD Copies to: ~ Date of Service: 05/05/2024 Subjective Subjective Narrative: No events overnight. Per nursing staff, CIWA score was 12, patient received total 5 mg of Ativan overnight. He is easily arousable this morning, not interested in answering questions upon my entry, on 2 L nasal cannula with SpO2 in the mid 90s on monitor Patient maintains O2 sat when awake, oxygen saturation drops when he sleeps. Exam Physical Exam Vital Signs: Temp Pulse Resp BP Pulse Ox O2 Del Method O2 Flow Rate 98.4 F 57 L 18 111/59 L 95 Nasal Cannula 2 05/05/24 08:00 05/05/24 10:05/05/24 10:00 05/05/24 10:00 05/05/24 10:00 05/05/24 10:00 05/05/24 10:00 FiO2 40 05/04/24 01:00 Narrative: General: Sleepy this morning, easily arousable. HEENT: Pupils equal and reactive. Dry oral mucosa Neck: No JVD. Trachea midline. No carotid bruits. Cardiovascular: Bradycardic, regular. S1/S2 normal. No gallop. No murmur. Respiratory: Coarse breath sounds both soto. Normal work of breathing. GI: Abdomen soft nondistended nontender, bowel sounds present Musculoskeletal: No edema, no clubbing. Skin: No skin rash [employer]: Sleepy, easily arousable, no focal deficits. Objective Intake and Output I&O - Last 24 Hours: Intake & Output 05/04/24 05/05/24 05/05/24 23:59 07:59 15:59 Intake Total 500 / 1000 500 / 800 300 / 800 Output Total 200 / 600 150 / 150 Balance 300 / 400 350 / 650 300 / 650 Weight 78 kg Labs 05/04/24 03:22 05/05/24 03:59 Assessment/Plan Assessment/Plan (1) Acute respiratory failure with hypoxia and hypercapnia: (2) Alcohol withdrawal: (3) Metabolic encephalopathy: (4) Acute exacerbation of chronic obstructive pulmonary disease (COPD): (5) Community acquired pneumonia: (6) Alcohol abuse: (7) Nicotine dependence: (8) History of heroin abuse: (9) Right lower lobe pneumonia: (10) Uncontrolled hypertension: Plan -Patient with hypercapnic and hypoxemic respiratory failure, this is likely due to COPD exacerbation -Patient refused BiPAP, took off the Vapotherm. On 2 L nasal cannula. -He has been refusing ABGs. -Continue CIWA protocol every 4 hours, lorazepam as needed. No indication for Precedex at this point -Blood pressure better controlled now. Continue current antihypertensive regimen. -Switch to oral prednisone -Rocephin and azithromycin for total 5 days -Nebulized bronchodilators -DVT prophylaxis Discussed with nursing staff Documented By: Víctro Agrawal MD 05/05/24 112 5 Signed By: <Electronically signed by Víctor Agrawal MD> 05/05/24 1128 [facility] Work Phone: 1(197) 394-792306-22-2024 Progress note Author Janae Jose [facility] May 04, 2024 12:19pm Note Date/Time May 04, 2024 12:1 3pm [facility] [address] [place] [address] Hospitalist Progress Note Signed Patient: Aaron Olivarez MR#: [id number] : 1960 Acct:[id number] Age/Sex: 63 / M Adm Date: 4 Loc: Room: [address] [place] [address] Type: ADM IN Attending Dr: Janae Jose MD Copies to: ~ Date of Service: 05/04/2024 Subjective Subjective Narrative: Examination patient appears sedated requiring soft restraint as he gets very agitated once awake. On CIWA protocol. He has been weaned off high flow oxygen. Exam Physical Exam Vital Signs: Temp Pulse Resp BP Pulse Ox O2 Del Method O2 Flow Rate 97.8 F 69 20 198/105 H 94 L Nasal Cannula 2 05/04/24 08:00 05/04/24 08:00 05/04/24 08:00 05/04/24 08:00 05/04/24 08:51 05/04/24 08:51 05/04/24 08:51 FiO2 40 05/04/24 01:00 Const Other: Drowsy but wakes up and moving all extremities. Resp Effort & Inspection: normal respiratory effort and able to speak in complete sentences Auscultation: no rales, no rhonchi and no wheezes Cardio Rate: regular rate Rhythm: regular rhythm Heart Sounds: S1 normal and S2 normal GI Palpation: soft, not firm, no guarding and nontender Neuro General: moves all extremities and no focal motor deficits Extrem General: no clubbing, cyanosis or edema and no calf tenderness Objective Lab Results 05/04/24 03:22 05/04/24 03:22 Meds Allergies and Active Meds Allergies No Known Drug Allergies Allergy (Verified 05/01/24 23:49) Unknown Reaction Active Meds: Active Medications Generic Name Dose Route Start Last Admin Trade Name Freq PRN Reason Stop Dose Admin Acetaminophen 650 mg 05/01/24 23:20 05/03/24 21:06 Acetaminophen 325 Mg Tablet PO 05/01/25 23:19 650 mg Q6HR PRN Administration Fever Albuterol 2.5 mg 05/01/24 23:20 05/02/24 08:05 Albuterol Neb 2.5 Mg/3 Ml Vial.Neb INHALATION 05/01/25 23:19 2.5 mg Q3H PRN Administration Shortness Of Breath Amlodipine Besylate 10 mg 05/03/24 09:00 05/04/24 10:23 Amlodipine 10 Mg Tablet PO 05/03/25 08:59 10 mg DAILY CORBY Administration Budesonide/Formoterol Fumarate 2 puff 05/02/24 21:00 05/04/24 09:08 Budesonide/Formoterol 160-4.5 Mcg 60 Puff/6 Gm Hfa.Aer.Ad INHALATION 05/02/25 20:59 2 puff BID CORBY Administration Buprenorphine/Naloxone 1 film 05/02/24 22:00 05/04/24 08:38 Buprenorphine/Naloxone 8mg/2mg Film BUCCAL 10/29/24 21:59 1 film TID CORBY Administration Enoxaparin Sodium 40 mg 05/02/24 10:00 05/04/24 10:31 Enoxaparin 40 Mg/0.4 Ml Syringe SUBCUT 05/02/25 09:59 40 mg DAILY@10 CORBY Administration Folic Acid 1 mg 05/04/24 09:00 05/04/24 10:23 Folic Acid 1 Mg Tablet PO 05/04/25 08:59 1 mg DAILY CORBY Administration Hydralazine HCl 10 mg 05/02/24 13:30 05/04/24 08:37 Hydralazine 20 Mg/Ml Vial IV-PUSH 05/02/25 13:29 10 mg Q4H PRN Administration SBP>180 Hydralazine HCl 50 mg 05/03/24 10:00 05/04/24 10:24 Hydralazine 50 Mg Tablet PO 05/03/25 09:59 50 mg TID CORBY Administration Ceftriaxone Sodium 1 gm in 50 mls @ 100 mls/hr 05/02/24 14:00 05/03/24 20:18 Rocephin IV Infused Q24H CORBY Infusion Azithromycin 500 mg in 250 mls @ 250 mls/hr 05/02/24 00:30 05/04/24 02:15 Zithromax IV Infused Q24H CORBY Infusion Labetalol HCl 10 mg 05/03/24 10:41 Labetalol 100 Mg/20 Ml Vial IV-PUSH 05/03/25 10:40 Q4H PRN Hypertension Levothyroxine Sodium 137 mcg 05/03/24 06:30 05/04/24 06:12 Levothyroxine 137 Mcg Tablet PO 05/03/25 06:29 137 mcg DAILY@0630 CORBY Administration Lorazepam 0 mg 05/04/24 02:16 Lorazepam 1 Mg Tablet PO 10/31/24 02:15 PROTOCOL PRN Alcohol Withdrawal Protocol Lorazepam 0 mg 05/04/24 02:16 05/04/24 08:10 Lorazepam 2 Mg/Ml Vial IV-PUSH 10/31/24 02:15 2 mg PROTOCOL PRN Administration Alcohol Withdrawal Protocol Methylprednisolone Sodium Succinate 20 mg 05/04/24 21:00 Methylprednisolone Sod Succ/Pf 40 Mg/Ml (1ml) Vial IV-PUSH 05/06/24 21:01 Q12HR CORBY Metoprolol Tartrate 25 mg 05/03/24 10:00 05/04/24 10:23 Metoprolol Tartrate 25 Mg Tablet PO 05/03/25 09:59 25 mg BID CORBY Administration Multivitamins 1 tab 05/04/24 09:00 05/04/24 10:23 Multivitamin 1 Tab Tablet PO 05/04/25 08:59 1 tab DAILY CORBY Administration Sodium Chloride 10 ml 05/02/24 09:38 05/04/24 04:31 Sodium Chloride 0.9 % 10 Ml Vial.Pf INJECTION 05/02/25 09:37 10 ml Q4H PRN Administration Ativan dilution Thiamine HCl 100 mg 05/04/24 09:00 05/04/24 10:23 Thiamine 100 Mg Tablet PO 05/04/25 08:59 100 mg BID CORBY Administration A&P - Hospitalist Assessment/Plan (1) Community acquired pneumonia: (2) Acute respiratory failure with hypoxia and hypercapnia: (3) Acute exacerbation of chronic obstructive pulmonary disease (COPD): (4) Tobacco abuse: (5) Elevated troponin: Plan Acute respiratory failure with hypoxia and hypercapnia/COPD exacerbation/pneumonia Patient has been weaned off high flow oxygen. Pulmonary service on consult to manage respiratory failure. On IV steroids with bronchodilators and IV antibiotics. As per the record outside facility CTA chest was negative for PE but showed right lower lobe consolidation suggestive of pneumonia. Acute metabolic encephalopathy/substance abuse/acute alcohol withdrawal Suspecting acute alcohol withdrawal given history of alcohol abuse. Patient receiving IV lorazepam as needed. His list of home medication also include Suboxone which has been started. CT had negative for acute abnormality. B12 and folate level in normal range. TSH slightly elevated Consider switching to Precedex due to his agitation. Uncontrolled hypertension Blood pressure has been uncontrolled possibly from withdrawals. Continue amlodipine, metoprolol and hydralazine. IV hydralazine and labetalol as needed for accelerated hypertension. Lovenox for DVT prophylaxis. Elevated troponin Troponin trending down without significant elevation. Suspecting type II [place] from hypoxia. Echocardiogram showing preserved ejection fraction with mild LVH. No wall motion abnormality seen. Negative for acute ischemic changes. Documented By: Janae Jose MD 05/04/24 1210 Signed By: <Electronically signed by Janae Jose MD> 05/04/24 1219 [facility] Work Phone: 1(296) 859-873106-22-2024 Progress note Author Víctor Agrawal [facility] May 04, 2024 12:03pm Note Date/Time May 04, 2024 11:5 4am [facility] [address] [place] [address] Pulmonology Progress Note Signed Patient: Aaron Olivarez MR#: [id number] : 1960 Acct:[id number] Age/Sex: 63 / M Adm Date: 4 Loc: Room: [address] [place] [address] Type: ADM IN Attending Dr: Janae Jose MD Copies to: ~ Date of Service: 05/04/2024 Subjective Subjective Narrative: Restless and agitated overnight, CIWA score 24, received 4 mg of Ativan and was placed in restraints. Nursing staff reporting patient has been hallucinating. On regular nasal cannula not requiring high flow Vapotherm. Blood pressure still elevated. Was restarted on Suboxone. Unable to obtain review of systems due to mental status/clinical condition Exam Physical Exam Vital Signs: Temp Pulse Resp BP Pulse Ox O2 Del Method O2 Flow Rate 97.8 F 69 20 198/105 H 94 L Nasal Cannula 2 05/04/24 08:00 05/04/24 08:00 05/04/24 08:00 05/04/24 08:00 05/04/24 08:51 05/04/24 08:51 05/04/24 08:51 FiO2 40 05/04/24 01:00 Narrative: General: Drowsy on entry this morning, arousable, appears confused when awake HEENT: Pupils equal and reactive. Dry oral mucosa Neck: No JVD. Trachea midline. Cardiovascular: Regular rate and rhythm. S1/S2 normal. No gallop. Respiratory: Normal work of breathing, breath sounds symmetric. Clear to auscultation anteriorly. GI: Abdomen soft nondistended nontender, bowel sounds present : Exam deferred Musculoskeletal: No edema Skin: No skin rash [employer]W CHIEF: Drowsy and confused, does not interact or verbalize much. Unable to fully assess neurostatus due to current clinical condition Objective Intake and Output I&O - Last 24 Hours: Intake & Output 05/03/24 05/04/24 05/04/24 23:59 07:59 15:59 Intake Total 272 / 1044 400 / 400 Output Total 300 / 1000 200 / 200 Balance - 200 / 200 Weight 77.2 kg Labs 05/04/24 03:22 05/04/24 03:22 Assessment/Plan Assessment/Plan (1) Acute respiratory failure with hypoxia and hypercapnia: (2) Alcohol withdrawal: (3) Metabolic encephalopathy: (4) Acute exacerbation of chronic obstructive pulmonary disease (COPD): (5) Community acquired pneumonia: (6) Alcohol abuse: (7) Nicotine dependence: (8) History of heroin abuse: (9) Right lower lobe pneumonia: (10) Uncontrolled hypertension: Plan - Underlying etiology for her current mental status includes COPD exacerbation, hypercapnia, infection, question withdrawal from alcohol/drugs.. -Patient with acute metabolic encephalopathy, question hepatic encephalopathy. Check ammonia level -Continue CIWA protocol every 4 hours, lorazepam as needed. Might require Precedex -Blood pressure uncontrolled as patient is not able to take p.o. meds this morning due to the drowsiness, he received intravenous hydralazine with improvement -O2 via regular nasal cannula, titrate as needed to keep SpO2 89 to 94%. Discontinue Vapotherm. -Restarted on Suboxone -Taper down systemic corticosteroids -Continue Rocephin and azithromycin for total 5 days -Nebulized bronchodilators -DVT prophylaxis Discussed with nursing staff Critical care time 30 minutes Documented By: Víctor Agrawal MD 05/04/24 115 2 Signed By: <Electronically signed by Víctor Agrawal MD> 05/04/24 1203 [facility] Work Phone: 1(732) 747-513606-21-2024 Progress note Author Víctor Agrawal [facility] May 03, 2024 1:57pm Note Date/Time May 03, 2024 1:57 pm [facility] [address] [place] [address] Pulmonology Progress Note Signed Patient: Aaron Olivarez MR#: [id number] : 1960 Acct:[id number] Age/Sex: 63 / M Adm Date: 4 Loc: Room: [address] [place] [address] Type: ADM IN Attending Dr: Janae Jose MD Copies to: ~ Date of Service: 05/03/2024 Subjective Subjective Narrative: Patient refused ABGs yesterday. Slightly restless this morning, he is on 6 L with oxygen saturation in the mid to low 90s. Blood pressure elevated. Patient has been refusing care, refusing high flow nasal cannula. Noncompliant.. Echocardiogram done. Exam Physical Exam Vital Signs: Temp Pulse Resp BP Pulse Ox O2 Del Method O2 Flow Rate 97.6 F 73 22 158/92 H 93 L High Flow 30 05/03/24 12:00 05/03/24 12:57 05/03/24 12:57 05/03/24 12:57 05/03/24 12:57 05/03/24 12:57 05/03/24 12:57 FiO2 40 05/03/24 12:57 Narrative: General: Alert, interacts properly. HEENT: Pupils equal and reactive. Moist oral mucosa Neck: No JVD. Trachea midline. Cardiovascular: Regular rate and rhythm. S1/S2 normal. No gallop. Respiratory: Mildly tachypneic, breath sounds symmetric, diminished, coarse.. GI: Abdomen soft nondistended nontender, bowel sounds present : Exam deferred Musculoskeletal: No edema Skin: No skin rash [employer] CHIEF: Drowsy, 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 No focal deficits Objective Intake and Output I&O - Last 24 Hours: Intake & Output 05/02/24 05/03/24 05/03/24 23:59 07:59 15:59 Intake Total 1550 / 2350 472 / 472 Output Total 500 / 1750 300 / 300 Balance 1050 / 600 172 / 172 Weight 81.1 kg Labs 05/03/24 04:09 05/03/24 04:09 Assessment/Plan Assessment/Plan (1) Nicotine dependence: (2) History of heroin abuse: (3) Acute exacerbation of chronic obstructive pulmonary disease (COPD): (4) Acute respiratory failure with hypoxia and hypercapnia: (5) Community acquired pneumonia: (6) Alcohol abuse: (7) Metabolic encephalopathy: (8) Right lower lobe pneumonia: (9) Uncontrolled hypertension: Plan - Underlying etiology for her current mental status includes COPD exacerbation, hypercapnia, infection, question withdrawal from alcohol/drugs -Continue CIWA protocol every 4 hours, lorazepam as needed -Blood pressure elevated, on amlodipine 10 mg daily. Add hydralazine p.o. and IV as needed, metoprolol twice a day -Refusing BiPAP and high flow, on 6 L nasal cannula with oxygen saturation low 90s, patient at risk of CO2 retention -O2 via regular nasal cannula, titrate as needed to keep SpO2 89 to 94% -Patient drowsy, has been refusing BiPAP, will obtain follow-up ABGs -Continue Rocephin and azithromycin for total 5 days, systemic corticosteroids -Nebulized bronchodilators -DVT prophylaxis Discussed with multidisciplinary team Critical care time 30 minutes Documented By: Vícotr Agrawal MD 05/03/24 135 2 Signed By: <Electronically signed by Víctor Agrawal MD> 05/03/24 3037 [facility] Work Phone: 1([phone]) [phone] Progress note Author Janae Jose [facility] May 03, 2024 12:57pm Note Date/Time May 03, 2024 12:5 7pm [facility] [address] [place] [address] Hospitalist Progress Note Signed Patient: Aaron Olivarez MR#: [id number] : 1960 Acct:[id number] Age/Sex: 63 / M Adm Date: 4 Loc: Room: [address] [place] [address] Type: ADM IN Attending Dr: Janae Jose MD Copies to: ~ Date of Service: 05/03/2024 Subjective Subjective Narrative: On examination patient has been placed on high flow oxygen currently on 30 L and40% FiO2. He appears drowsy but wakes up and able to follow simple commands. Blood pressure has been running high. Exam Physical Exam Vital Signs: Temp Pulse Resp BP Pulse Ox O2 Del Method O2 Flow Rate 97.6 F 71 25 H 179/89 H 92 L High Flow 30 05/03/24 12:00 05/03/24 12:00 05/03/24 12:00 05/03/24 12:00 05/03/24 12:00 05/03/24 12:00 05/03/24 12:00 FiO2 40 05/03/24 12:00 Const Other: Drowsy but wakes up and moving all extremities. Resp Effort & Inspection: normal respiratory effort Auscultation: no rales, no rhonchi and no wheezes Cardio Rate: regular rate Rhythm: regular rhythm Heart Sounds: S1 normal and S2 normal GI Palpation: soft, not firm, no guarding and nontender Neuro General: moves all extremities and no focal motor deficits Objective Lab Results 05/03/24 04:09 05/03/24 04:09 Meds Allergies and Active Meds Allergies No Known Drug Allergies Allergy (Verified 05/01/24 23:49) Unknown Reaction Active Meds: Active Medications Generic Name Dose Route Start Last Admin Trade Name Freq PRN Reason Stop Dose Admin Acetaminophen 650 mg 05/01/24 23:20 Acetaminophen 325 Mg Tablet PO 05/01/25 23:19 Q6HR PRN Fever Albuterol 2.5 mg 05/01/24 23:20 05/02/24 08:05 Albuterol Neb 2.5 Mg/3 Ml Vial.Neb INHALATION 05/01/25 23:19 2.5 mg Q3H PRN Administration Shortness Of Breath Amlodipine Besylate 10 mg 05/03/24 09:00 05/03/24 08:00 Amlodipine 10 Mg Tablet PO 05/03/25 08:59 10 mg DAILY CORBY Administration Budesonide/Formoterol Fumarate 2 puff 05/02/24 21:00 05/03/24 08:09 Budesonide/Formoterol 160-4.5 Mcg 60 Puff/6 Gm Hfa.Aer.Ad INHALATION 05/02/25 20:59 2 puff BID CORBY Administration Buprenorphine/Naloxone 1 film 05/02/24 22:00 05/03/24 08:00 Buprenorphine/Naloxone 8mg/2mg Film BUCCAL 10/29/24 21:59 1 film TID CORBY Administration Enoxaparin Sodium 40 mg 05/02/24 10:00 05/03/24 09:16 Enoxaparin 40 Mg/0.4 Ml Syringe SUBCUT 05/02/25 09:59 40 mg DAILY@10 CORBY Administration Hydralazine HCl 10 mg 05/02/24 13:30 05/03/24 07:08 Hydralazine 20 Mg/Ml Vial IV-PUSH 05/02/25 13:29 10 mg Q4H PRN Administration SBP>180 Hydralazine HCl 50 mg 05/03/24 10:00 05/03/24 09:56 Hydralazine 50 Mg Tablet PO 05/03/25 09:59 50 mg TID CORBY Administration Ceftriaxone Sodium 1 gm in 50 mls @ 100 mls/hr 05/02/24 14:00 05/02/24 19:41 Rocephin IV Infused Q24H CORBY Infusion Azithromycin 500 mg in 250 mls @ 250 mls/hr 05/02/24 00:30 05/03/24 03:08 Zithromax IV Infused Q24H CORBY Infusion Labetalol HCl 10 mg 05/03/24 10:41 Labetalol 100 Mg/20 Ml Vial IV-PUSH 05/03/25 10:40 Q4H PRN Hypertension Levothyroxine Sodium 137 mcg 05/03/24 06:30 05/03/24 06:05 Levothyroxine 137 Mcg Tablet PO 05/03/25 06:29 137 mcg DAILY@0630 CORBY Administration Lorazepam 1 mg 05/02/24 09:38 05/03/24 08:45 Lorazepam 2 Mg/Ml Vial IV-PUSH 10/29/24 09:37 1 mg Q4H PRN Administration Agitation Methylprednisolone Sodium Succinate 40 mg 05/02/24 09:00 05/03/24 08:01 Methylprednisolone Sod Succ/Pf 40 Mg/Ml (1ml) Vial IV-PUSH 05/06/24 21:01 40 mg Q12HR CORBY Administration Metoprolol Tartrate 25 mg 05/03/24 10:00 05/03/24 09:56 Metoprolol Tartrate 25 Mg Tablet PO 05/03/25 09:59 25 mg BID CORBY Administration Sodium Chloride 10 ml 05/02/24 09:38 05/03/24 08:46 Sodium Chloride 0.9 % 10 Ml Vial.Pf INJECTION 05/02/25 09:37 10 ml Q4H PRN Administration Ativan dilution A&P - Hospitalist Assessment/Plan (1) Community acquired pneumonia: (2) Acute respiratory failure with hypoxia and hypercapnia: (3) Acute exacerbation of chronic obstructive pulmonary disease (COPD): (4) Tobacco abuse: (5) Elevated troponin: Plan Acute respiratory failure with hypoxia and hypercapnia/COPD exacerbation/pneumonia Patient currently placed on high flow oxygen and being followed by pulmonary service. Continue IV steroids, bronchodilators and antibiotics. Try to obtain sputum for culture Acute metabolic encephalopathy Suspecting acute alcohol withdrawal given history of alcohol abuse. Patient receiving IV lorazepam as needed. His list of home medication also include Suboxone which has been started. Will obtain CT head to rule out any structural abnormality given his mentation. Check B12 and folate level. Uncontrolled hypertension Blood pressure has been uncontrolled possibly from withdrawals. Continue amlodipine and started on metoprolol and hydralazine. IV hydralazine and labetalol as needed for accelerated hypertension. Lovenox for DVT prophylaxis. Elevated troponin Troponin trending down without significant elevation. Suspecting type II [place] from hypoxia. Pending echocardiogram to assess LV function and wall motion. Will obtain twelve-lead EKG. Documented By: Janae Jose MD 05/03/24 1247 Signed By: <Electronically signed by Janae Jose MD> 05/03/24 1257 [facility] Work Phone: 1(796) 148-354306-20-2024 Progress note Author Janae Jose [facility] May 02, 2024 1:49pm Note Date/Time May 02, 2024 1:49 pm [facility] [address] [place] [address] Event Note Signed Patient: Aaron Olivarez MR#: [id number] : 1960 Acct:[id number] Age/Sex: 63 / M Adm Date: 4 Loc: Room: [address] [place] [address] Type: ADM IN Attending Dr: Janae Jose MD Copies to: DO Janae Barnard MD~ Status Event Note Event Note DATE OF EVENT: 05/02/24 TIME OF EVENT: 13:48 EVENT DETAILS: Patient was admitted after midnight please refer to H&P for details regarding his presentation. Patient currently on 4 L oxygen and resting comfortably afterreceiving IV Ativan. He is moving all 4 extremities. Case discussed with bedside nurse with plan to discontinue IV fluids. TIME W/PATIENT (# MINS): 15 Documented By: Janae Jose MD 05/02/24 1348 Signed By: <Electronically signed by Janae Jose MD> 05/02/24 1349 [facility] Work Phone: [phone] Consult note Author Víctor Agrawal [facility] May 02, 2024 1:47pm Note Date/Time May 02, 2024 1:42 pm [facility] [address] [place] [address] Pulmonology Consult Note Signed Patient: Aaron Olivarez MR#: [id number] : 1960 Acct:[id number] Age/Sex: 63 / M Adm Date: 4 Loc: Room: [address] [place] [address] Type: ADM IN Attending Dr: Janae Jose MD Copies to: Sulaiman Feldman, MD Víctor Dc MD~ HPI Date/Time of Consultation: Date of Service: 05/02/2024 Time of Service: 13:37 Consulting Provider: Víctor Agrawal Requesting Provider: Janae Jose History of Present Illness History of present illness: Patient is 63 year old male with past medical history significant for chronic obstructive pulmonary disease, chronic hypoxemic respiratory failure, nicotine dependence, drug abuse, alcohol abuse and history of hypertension was transferred from [facility] ED directly into ICU. Apparently, patient was experiencing productive cough with thick yellow phlegm and increased shortness of breath prior to his presentation to [facility] ED. Patient was found by familylethargic and difficult to arouse, oxygen saturation was 70% on room air, venousblood gas showed pCO2 of 80 with pH of 7.32. Patient refused BiPAP. Chest CT angiogram reported negative for PE, showed right lower lobe consolidation consistent with pneumonia. [facility] Social History Smoking Status: Heavy tobacco smoker Meds Medications and Allergies Allergies No Known Drug Allergies Allergy (Verified 05/01/24 23:49) Unknown Reaction Exam Physical Exam Vital Signs: Temp Pulse Resp BP Pulse Ox O2 Del Method O2 Flow Rate 98.3 F 66 29 H 172/79 H 94 L Nasal Cannula 4 05/02/24 12:00 05/02/24 13:00 05/02/24 13:00 05/02/24 13:00 05/02/24 13:00 05/02/24 13:00 05/02/24 13:00 FiO2 50 05/01/24 23:00 Narrative: General: Drowsy, does not engage in meaningful conversation, does not answer questions properly HEENT: Pupils equal and reactive. Neck: No JVD. Trachea midline. Cardiovascular: Regular rate and rhythm. S1/S2 normal. No gallop. Respiratory: Normal work of breathing, breath sounds symmetric, clear to auscultation. GI: Abdomen soft nondistended nontender, bowel sounds present : Exam deferred Musculoskeletal: No edema Skin: No skin rash [employer] CHIEF: Drowsy, no focal deficits Results - Pulmonology Intake and Output I&O - Last 24 Hours: Intake & Output 05/01/24 05/02/24 05/02/24 23:59 07:59 15:59 Intake Total 550 / 550 Output Total 600 / 600 Balance -50 / -50 Weight 80.7 kg 80.8 kg Labs 05/02/24 04:20 05/02/24 04:20 Assessment/Plan (1) Nicotine dependence: (2) History of heroin abuse: (3) Acute exacerbation of chronic obstructive pulmonary disease (COPD): (4) Acute respiratory failure with hypoxia and hypercapnia: (5) Community acquired pneumonia: (6) Alcohol abuse: (7) Metabolic encephalopathy: (8) Right lower lobe pneumonia: Plan - Underlying etiology for her current mental status includes COPD exacerbation, hypercapnia, infection, question withdrawal from alcohol/drugs -Start CIWA protocol every 4 hours, lorazepam as needed -Patient has refused BiPAP, will check arterial blood gas -O2 via regular nasal cannula, titrate as needed to keep SpO2 89 to 94% -Patient drowsy, has been refusing BiPAP, will obtain follow-up ABGs -Continue Rocephin and azithromycin, systemic corticosteroids -Nebulized bronchodilators -DVT prophylaxis Discussed with multidisciplinary team Critical care time 30 minutes Documented By: Víctor Agrawal MD 05/02/24 133 7 Signed By: <Electronically signed by Víctor Agrawal MD> 05/02/24 1347 [facility] Work Phone: 1(451) 497-899906-20-2024 History and physical note Author Magdy Douglass [facility] May 02, 2024 7:12am Note Date/Time May 02, 2024 7:11 am [facility] [address] [place] [address] Hospitalist H&P Signed Patient: Aaron Olivarez MR#: [id number] : 1960 Acct:[id number] Age/Sex: 63 / M Adm Date: 4 Loc: Room: [address] [place] [address] Type: ADM IN Attending Dr: Janae Jose MD Copies to: MD Sulaiman Ruggiero DO Mazhar Rahman, MD~ HPI DATE OF EXAMINATION: 05/01/24 CHIEF COMPLAINT: cough, dyspnea, altered mental status HISTORY OF PRESENT ILLNESS: 63 year old man with history of HTN, COPD, tobacco abuse who presented to [facility] ED with the above complaints. Per the patient for 2-3 days prior to admission he was having a cough productiveof thick yellow sputum and increasing dyspnea with exertion. On the date of presentation family members went to see the patient and found that he was lethargic and difficult to arouse so he was brought to [facility] ED for evaluation. On arrival there pulse oximetry was reportedly 70% on room air. initial VBG with pH of 7.32, PCO2 of 80. labs notable for WBC 10.4, troponin 202, d-dimer 0.63 (above ULN), lactate WNL. CTA chest with no acute PE, RLL consolidation suggestive of pneumonia. Pt was initially started on bipap but did not tolerate the mask and was placed on vapotherm. given vancomycin, zosyn, solumedrol, duonebs and transferred herefor further eval/mgmt When i evaluated the patient, he was lucid, breathing comfortably, with O2 sat in the upper 90s on 50% VM. ROS: 10 systems reviewed and were negative except as noted in the HPI [facility] Social History Smoking Status: Heavy tobacco smoker Meds Medications and Allergies Allergies No Known Drug Allergies Allergy (Verified 05/01/24 23:49) Unknown Reaction Exam Physical Exam Vital Signs: Temp Pulse Resp BP Pulse Ox O2 Del Method O2 Flow Rate 99.2 F H 69 20 166/80 H 96 Nasal Cannula 2 05/02/24 04:00 05/02/24 06:00 05/02/24 06:00 05/02/24 06:00 05/02/24 06:00 05/02/24 06:08 05/02/24 06:08 FiO2 50 05/01/24 23:00 Const General: cooperative, no acute distress and well developed HEENT Head: normal to inspection Ears: external ears normal Nose: external nose normal Face and sinus: normal facial exam Mouth: oral mucosae normal Throat: posterior oropharynx normal Eyes General: appearance normal, both eyes and all related structures Visual Soto: normal visual soto by confrontation Sclera: sclerae normal Pupils: PERRL and accommodation normal Neck Neck: normal visual inspection, no lymphadenopathy and supple Thyroid: thyroid normal Lymphatic: no lymphadenopathy noted Chest Chest palpation & inspection: normal inspection of the chest Resp Effort & Inspection: normal respiratory effort, symmetric chest movement and cough Auscultation: diminished lung sounds on the right in the lower lung soto and rhonchi right lower Cardio Palpation: normal PMI Rate: regular rate Rhythm: regular rhythm Heart Sounds: S1 normal and S2 normal GI Inspection: normal to inspection Palpation: soft Auscultation: normal bowel sounds General: bladder normal to palpation Musc Cervical Spine: cervical ROM normal Thoracic/Lumbar Spine: thoracic and lumbar spine normal to inspection Skin General: no rashes or lesions noted and turgor normal Neuro General: patient alert, patient awake and patient oriented x3 Speech: speech normal Extrem General: normal to inspection and full ROM Psych Appearance: grossly normal Mental Status: mental status grossly normal Affect: normal affect Speech and Movement: speech and movement normal Attitude: cooperative Results - Hospitalist H&P Lab Results Labs: Laboratory Last Values Corrected WBC 7.5 X10E3/uL (4.1-10.5) 05/02/24 04:20 Uncorrected WBC Count 7.5 x10E3/uL (4.1-10.5) 05/02/24 04:20 RBC 4.13 X10E6/uL (3.90-5.60) 05/02/24 04:20 Hgb 12.3 g/dL (13.0-17.0) L 05/02/24 04:20 Hct 37.0 % (38.8-50.0) L 05/02/24 04:20 MCV 89.7 fl (83.5-101) 05/02/24 04:20 MCH 29.8 pg (27.5-35.2) 05/02/24 04:20 MCHC 33.2 g/dL (32.5-35.6) 05/02/24 04:20 RDW 15.5 % (12.0-14.8) H 05/02/24 04:20 Plt Count 276 x10E3/uL (150-450) 05/02/24 04:20 MPV 6.5 fl (6.6-10.1) L 05/02/24 04:20 Neut % (Auto) 83.8 % (.) 05/02/24 04:20 Lymph % (Auto) 7.8 % (.) 05/02/24 04:20 [place] % (Auto) 8.2 % (.) 05/02/24 04:20 Eos % (Auto) 0.0 % (.) 05/02/24 04:20 Baso % (Auto) 0.2 % (.) 05/02/24 04:20 Nucleat RBC Rel Count 0.2 /100 WBC (0-0.5) 05/02/24 04:20 Neut # (Auto) 6.3 x10E3/uL (1.8-7.7) 05/02/24 04:20 Lymph # (Auto) 0.6 x10E3/uL (1.00-4.8) L 05/02/24 04:20 [place] # (Auto) 0.6 x10E3/uL (0.0-0.8) 05/02/24 04:20 Eos # (Auto) 0.0 x10E3/uL (0.0-0.45) 05/02/24 04:20 Baso # (Auto) 0.0 x10E3/uL (0.0-0.2) 05/02/24 04:20 PHA Creatinine Clear 90.82 05/02/24 04:20 Sodium 130 mmol/L (136-145) L 05/02/24 04:20 Potassium 4.8 mmol/L (3.5-5.1) 05/02/24 04:20 Chloride 91 mmol/L (98-107) L 05/02/24 04:20 Carbon Dioxide 40.3 mmol/L (21.0-31.0) H 05/02/24 04:20 Anion Gap 3.5 mEq/L (6.0-15.0) L 05/02/24 04:20 BUN 19 mg/dL (7-25) 05/02/24 04:20 Creatinine 0.89 mg/dL (0.70-1.30) 05/02/24 04:20 Est GFR (CKD-EPI) > 60.0 mL/Min 05/02/24 04:20 Glucose 100 mg/dL (70-100) 05/02/24 04:20 Lactic Acid 0.6 mmol/L (0.5-2.2) 05/02/24 00:06 Calcium 8.7 mg/dL (8.6-10.3) 05/02/24 04:20 Magnesium 2.1 mg/dL (1.9-2.7) 05/02/24 04:20 Total Bilirubin 0.3 mg/dl (0.3-1.0) 05/02/24 04:20 AST 12 U/L (13-39) L 05/02/24 04:20 ALT 14 U/L (7-52) 05/02/24 04:20 Alkaline Phosphatase 123 U/L (34-104) H 05/02/24 04:20 Troponin I High Sens 99.0 pg/mL (0.0-20.0) H* 05/02/24 00:06 C-Reactive Prot, Quant 2.5 mg/dL (0.0-0.5) H 05/02/24 04:20 Total Protein 5.5 gm/dL (6.4-8.9) L 05/02/24 04:20 Albumin 3.0 gm/dL (3.5-5.7) L 05/02/24 04:20 Globulin 2.5 gm/dL 05/02/24 04:20 Albumin/Globulin Ratio 1.2 05/02/24 04:20 Assessment & Plan Assessment/Plan (1) Community acquired pneumonia: (2) Acute respiratory failure with hypoxia and hypercapnia: (3) Acute exacerbation of chronic obstructive pulmonary disease (COPD): (4) Tobacco abuse: (5) Elevated troponin: Plan admit to ICU supplemental O2 titrate to sat >90% monitor mental status/respiratory status, if declining will get ABG to eval for worsening hypercapnia blood culture, sputum culture, urine ag to strep pneumo/legionella respiratory antigen panel empiric ceftriaxone/azithromycin monitor for sepsis IV solumedrol, duonebs PRN antitussives supportive rx consult pulmonology trend troponin- suspect related to demand in setting of hypoxia/respiratory failure discussed importance of smoking cessation offered nicotine replacement VTE prophlyaxis- SQ enoxaparin FULL CODE IP vs OBS Justification Based on differential dx, clinical care plan, and risk of adverse events, if untreated, in my clinical judgement this patient requires an acute care setting as: INPATIENT because of an expectation of an over 2 midnight stay. Estimated length of stay (# of days): 3 Documented By: Magdy Douglass MD 05/02/24 0658 Signed By: <Electronically signed by Magdy Douglass MD> 05/02/24 0712 [facility] Work Phone: Consult note Author Patricio Galaviz [facility] May 06, 2024 1:01pm Note Date/Time May 06, 2024 1:01 pm [facility] [address] [place] [address] Physiatry (Rehab) Consult Note Signed Patient: Aaron Olivarez MR#: [id number] : 1960 Acct:[id number] Age/Sex: 63 / M Adm Date: 4 Loc: Room: [address] [place] [address] Type: ADM IN Attending Dr: Kiko Maldonado MD Copies to: MD Sulaiman Younger DO Joseph Riley, MD~ Etiologic Dx/Impairment Group Narrative Narrative: Encephalopathy HPI Consult Date: 05/06/24 Requesting Physician: Kiko Maldonado MD Primary Care Provider: Sulaiman Feldman DO Consult Narrative Reason for consult: IRF admission HPI: 63-year-old male with history of polysubstance abuse on Suboxone who presented to outside hospital lethargic and with hypoxemia, he was diagnosed with pneumonia and was treated with steroids and IV antibiotics. He was monitored on the CIWA scale per protocol. Blood pressure improved with medication adjustments. Eventually his oxygen was weaned off. Therapy recommended rehabilitation unit, however patient was refusing placement. He is demanding patricia discharged home. Discharge order is already been written by hospitalist team. He was cleared by pulmonology to move out of the ICU as well. Seen and examined at bedside. Discussed post acute care options. I don't thinkhe fully understands the differences but he does understand that our 5T rehab unit would require him to remain in the hospital, which he does not want to do. He states has help at home from family. Review of Systems Review of Systems All other systems reviewed & are negative unless noted below or in HPI [facility] Medical History Heavy smoker Heroin use H/O ETOH abuse COPD (chronic obstructive pulmonary disease) Social History Smoking Status: Heavy tobacco smoker Social History Comments[place], Lamin. Meds Medications and Allergies Allergies No Known Drug Allergies Allergy (Verified 05/01/24 23:49) Unknown Reaction Home Medications albuterol 90 mcg/actuation aerosol inhaler See Rx Instructions inhalation Q4HR PRN rescue inhaler 05/02/24 [History Confirmed 05/02/24] amlodipine 10 mg tablet 10 mg PO DAILY 05/02/24 [History Confirmed 05/02/24] buprenorphine 8 mg-naloxone 2 mg sublingual film (Suboxone) 1 film buccal TID 05/02/24 [History Confirmed 05/02/24] fluticasone 250 mcg-salmeterol 50 mcg/dose blistr powdr for inhalation (Advair Diskus) 1 inh inhalation BID 05/02/24 [History Confirmed 05/02/24] gabapentin 800 mg tablet 800 mg PO TID 05/02/24 [History Confirmed 05/02/24] levothyroxine 137 mcg tablet (Euthyrox) 137 mcg PO DAILY 05/02/24 [History Confirmed 05/02/24] nicotine 10 mg inhalation cartridge See Rx Instructions inhalation Q1H PRN to stop smoking 05/02/24 [History Confirmed 05/02/24] levofloxacin 750 mg tablet 750 mg PO DAILY #5 tabs 05/06/24 [Rx] methylprednisolone 16 mg tablet (Medrol) 16 mg PO DAILY 5 days #5 tabs 05/06/24 [Rx] Exam Physical Exam Vital Signs: Temp Pulse Resp BP Pulse Ox O2 Del Method O2 Flow Rate 98.0 F 64 21 125/68 93 L Room Air 2 05/06/24 11:48 05/06/24 11:48 05/06/24 11:48 05/06/24 11:48 05/06/24 11:48 05/06/24 11:48 05/06/24 07:34 FiO2 40 05/04/24 01:00 Narrative: Pleasant NAD Oriented to person, hospital Nonlabored breathing Follows commands appropriately Moves extremities against gravity. Results - Phys. Rehab Additional Results Results Comment: I reviewed clinical lab tests, radiology reports and obtained and summated medical records and have ordered follow up lab tests and imaging studies as needed for rehabilitation care. Assessment/Plan (1) Alcohol withdrawal: (2) Uncontrolled hypertension: (3) Right lower lobe pneumonia: (4) Metabolic encephalopathy: (5) Alcohol abuse: (6) History of heroin abuse: (7) Nicotine dependence: (8) Acute respiratory failure with hypoxia and hypercapnia: (9) Community acquired pneumonia: (10) Acute exacerbation of chronic obstructive pulmonary disease (COPD): Plan 63-year-old male with history of polysubstance abuse on Suboxone who presented to outside hospital lethargic and with hypoxemia, he was diagnosed with pneumonia and was treated. He was monitored on the CIWA scale per protocol. Eventually his oxygen was weaned off. Therapy recommended rehabilitation unit, however patient was refusing placement. He is demanding to be discharged home. Discharge order is already been written by hospitalist team. He was cleared by pulmonology to move out of the ICU as well. -Patient refusing placement, just wants to go home. He understand that rehab unit would mean he would remain in hospital. He reiterates going home. -PT notes reviewed, agitated and did not participate 05/04 or 05/05. OT with no hands on assist needed today 05/06. -If family refuses to take patient home, would be appropriate for SNF. -Discussed with ICU nursing staff, orders already written for discharge to home. -Thank you for consult. Patient was personally seen by me, Dr. Galaviz, on the day of encounter, reviewed the history and the relevant portions of the chart, including current orders, allied health and health consultant notes, labs/imaging and performed [place] elements of exam and I formulated the plan of care and facilitated the medical decision making. I completed a substantive portion of this encounter, the medical decision making portion of this note in its entirety, including Allied health note review, nursing note review, health consultant note review, discussion with nursing and case management, and more than 50% of my time was spent on counseling and coordination of care, time spent 60 minutes Documented By: Patricio Galaviz MD 05/06/24 1251 Signed By: <Electronically signed by Patricio Galaviz MD> 05/06/24 1301 [facility] Work Phone: Evaluation note* Diagnosis Onset Date Resolution Status Acute exacerbation of chroni c obstructive pulmonary disease (COPD) acute Acute respiratory failure with hypoxia and hypercapnia acute Alcohol abuse acute Alcohol withdrawal acute Community acquired pneumonia acute Elevated troponin acute History of heroin abuse acut e Metabolic encephalopathy acu te Nicotine dependence acute Right lower lobe pneumonia a cute Tobacco abuse acute Uncontrolled hypertension ac [place] [facility] Work Phone: Summary Purpose Family History No Family History Records FoundNo Family History Records FoundNo Family History Records FoundNo Family History Records FoundNo Family History Records FoundNo Family History Records FoundNo Family History Records FoundNo Family History Records FoundNo Family History Records FoundNo Family History Records Found Advance Directives No Advanced Directives Records Found Advance Directive Response Recorded Date/ Time Advance Directives No May 21 9 7:10pm Chief Complaint and Reason for Visit Chief Complaint Pneumonia Exacerbati on, COPD Pneumonia Exacerbation, COPD Pneumonia Exacerbation, COPD Reason for Visit Acute exacerbation o f chronic obstructive pulmonary disease (COPD) Acute respiratory failure with hypoxia and hypercapnia Alcohol abuse Alcohol withdrawal Community acquired pneumonia Elevated troponin History of heroin abuse Metabolic encephalopathy Nicotine dependence Right lower lobe pneumonia Tobacco abuse Uncontrolled hypertension Additional Source Comments (unrecognized sect ion and content) No Status Records FoundNo Status Records FoundNo Status Records FoundNo Status Records FoundNo Status Records FoundNo Status Records FoundNo Status Records FoundNo Status Records FoundNo Status Records FoundNo Status Records Found INFORMATION SOURCE (unrecogn ized section and content) DATE CREATED AUTHOR 05/01/2018 [facility] DATE CREATED AUTHOR AUTHOR'S ORGANIZ ATION 05/04/2018 [facility] DATE CREATED AUTHOR AUTHOR'S ORGANIZ ATION 05/07/2018 [facility] DATE CREATED AUTHOR AUTHOR'S ORGANIZ ATION 05/09/2018 [facility] DATE CREATED AUTHOR AUTHOR'S ORGANIZ ATION 07/04/2018 [facility] DATE CREATED AUTHOR AUTHOR'S ORGANIZ ATION 10/23/2018 [facility] DATE CREATED AUTHOR AUTHOR'S ORGANIZ ATION 11/28/2022 [facility] DATE CREATED AUTHOR AUTHOR'S ORGANIZ ATION 05/15/[address] [facility] DATE CREATED AUTHOR AUTHOR'S ORGANIZ ATION 07/24/2024 [facility] Care Teams (unrecognized sec tion and content) Team Status: Active Member Role Status Dates Sulaiman Feldman DO Primary Care Provider Active Team Status: Inactive Member Role Status Dates Sulaiman Feldman DO Primary Care Provider Active Start: May 01, 2024 End: May 06, 2024 Magdy Douglass MD Admit Provider Active S tart: May 01, 2024 End: May 06, 2024 Kiko Maldonado MD Attending Provider Active St art: May 01, 2024 End: May 06, 2024 Karley Nguyen MD Other Provider Active Start: Emely quigley 2023 End: May 06, 2024 Patricio Galaviz MD Other Provider Active Start: Giselle bianchi 2023 End: May 06, 2024 Sofia Kent APRN Other Provider Active St art: May 01, 2024 End: May 06, 2024 Stevie Pichardo , DO Other Provider Active S tart: May 01, 2024 End: May 06, 2024 Danny Mills MD Other Provider Active Start: May 01, 2024 End: May 06, 2024 Víctor Agrawal MD Other Provider Active St art: May 01, 2024 End: May 06, 2024 Team Status: Active Member Role Status Dates Sulaiman Felmdan DO Primary Care Provider Active Start: May 02, 2024 Magdy Douglass MD Admit Provider Active S tart: May 02, 2024 Janae Jose MD Other Provider Active Start: May 02, 2024 Víctor Agrawal MD Attending Provid er, Other Provider Active Start: May 02, 2024 Team Status: Active Member Role Status Dates Sulaiman Feldman DO Primary Care Provider Active Start: May 06, 2024 Magdy Douglass MD Admit Provider Active S tart: May 06, 2024 Kiko Maldonado MD Other Provider Active Start: May 06, 2024 Karley Nguyen MD Other Provider Active Start: Emely 2023 Patricio Galaviz MD Attending Provider, Other Provider Active Start: May 06, 2024 Sofia Kent APRN Other Provider Active St art: May 06, 2024 Stevie Pichardo Jr, DO Other Provider Active S tart: May 06, 2024 Danny Mills MD Other Provider Active Start: May 06, 2024 Víctor Agrawal MD Other Provider Active St art: May 06, 2024 FOR RECORDS PERTAINING TO PATIENTS WHO ARE [...] BE BASED ON THE PRIMARY CLINICAL RECORDS. [employer] provides no warranty or guarantee of the accuracy or completeness of information in this document.
== END 2024-08-14 18:22 | disposition left against medical advice (07) ==
LOC: ER 18:17
PROVIDERS: Emergency Provider Emergency Medicine
DX: Z53.21 Procedure and treatment not carried out due to patient leaving prior to being seen by health care provider (principal)

== ENCOUNTER 2024-12-20 08:40 | Emergency (ER) | payer OTHER, SELFPAY ==
[2024-12-20] VITALS (10 sets, daily range): BP systolic 128–169; BP diastolic 85–92; PULSE 64–74; TEMP 36.8; O2SAT 92–95; BMI 27.1
--- NOTE | 2024-12-20 08:53 | ECG_ITS ---
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
--- NOTE | 2024-12-20 08:53 | XR_ITS ---
The [address] [address] Patient Name: AARON OLIVAREZ MRN: [id number] date: 1960 Sex: M Assigned Patient Location: ER Current Patient Location: ER Accession/Order Number: [id number] Exam Date: 12/20/2024 09:07 Report Date: 12/20/2024 09:31 At the request of: RUDY ABAD Procedure: XR chest 1V EXAM: XR chest 1V HISTORY: AMS COMPARISON: Portable chest radiograph dated 05/02/2024. TECHNIQUE: AP semierect view of the chest performed. FINDINGS: The trachea is unremarkable. The heart size is within normal limits. There is mild atheromatous calcification at the aortic arch. The hilar shadows are unremarkable. There is no consolidation, pleural effusion or pulmonary vascular congestion. There is no pneumothorax. There is no acute osseous abnormality. XR/XR chest 1V IMPRESSION: There is no acute cardiopulmonary process. Electronically authenticated by: LUISANA TOLBERT Date: 12/20/2024 09:31
--- NOTE | 2024-12-20 08:53 | CT_ITS ---
The [address] [address] Patient Name: AARON OLIVAREZ MRN: [id number] date: 1960 Sex: M Assigned Patient Location: ED.MAIN Current Patient Location: ER Accession/Order Number: [id number] Exam Date: 12/20/2024 09:07 Report Date: 12/20/2024 09:46 At the request of: RUDY ABAD Procedure: CT head/brain wo con EXAM: CT head/brain wo con HISTORY: AMS, Seizure COMPARISON: None. TECHNIQUE: Axial soft tissue and bone windows through the calvarium with coronal and sagittal reformats. CT dose reduction technique was used including Automated Exposure Control. Findings: The paranasal sinuses and mastoid air cells are well aerated. No air-fluid levels. No extra-axial fluid collection. No intra-axial or extra-axial bleed. No mass effect or midline shift. Small region of left frontal encephalomalacia. Otherwise, the remainder of the floyd-white matter differentiation is preserved. There are white matter low attenuation lesions which are nonspecific but commonly attributed to chronic small vessel ischemic disease. The brain parenchymal volume is reduced yet likely age-appropriate and there is mild ex vacuo dilatation of the ventricles. The basal cisterns are patent. The craniovertebral junction is unremarkable. CT/CT head/brain wo con IMPRESSION: 1. No acute intracranial abnormality. MRI is more sensitive for the evaluation of acute ischemia. 2. Senescent changes. Electronically authenticated by: WOLF HARRINGTON Date: 12/20/2024 09:46
[2024-12-20 09:02] LABS: Basophils Percent Auto 1.1 % (0.2-2.0); Eosinophils Absolute Auto 0.1 10^3/uL (0.0-0.7); Eosinophils Percent Auto 1.6 % (0.9-7.0); Hemoglobin 14.5 g/dL (14.0-18.0); Immature Granulocytes Abs Auto 0.01 10^3/uL (0.00-0.03); Immature Granulocytes Pct Auto 0.3 % (0.0-0.5); Lymphocytes Absolute Auto 0.6 10^3/uL (1.2-3.8); Lymphocytes Percent Auto 14.9 % (20.5-60.0); Mean Corpuscular HGB Conc 33.7 g/dL (29.9-35.2); Mean Corpuscular Hemoglobin 29.5 pg (25.9-34.0); Mean Corpuscular Volume 87.4 fL (80.0-94.0); Mean Platelet Volume 8.8 fL (9.5-13.5); Monocytes Absolute Auto 0.2 10^3/uL (0.3-0.8); Monocytes Percent Auto 5.7 % (1.7-12.0); Neutrophils Absolute Auto 2.8 10^3/uL (1.4-6.5); Neutrophils Percent Auto 76.4 % (43.0-75.0); Platelet Count 202 10^3/uL (150-450); Red Blood Count 4.92 10^6/uL (4.70-6.10); Red Cell Distribution Width 13.4 % (11.0-15.0); White Blood Count 3.7 10^3/uL (4.0-11.0)
--- OUTSIDE RECORDS SUMMARY | 2024-12-20 09:05 | XMS_ITS | CCD ---
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 Role Phone INDURTI, ELIAN V Unavailable Unavailable INDURTI, ELIAN V Unavailable Unavailable Provider, None Unavailable Unavailable Donna Martinez Unavailable Unavailable Juan Donna Unavailable Unavailable PROVIDER, UNKNOWN Unavailable Unavailable PROVIDER, UNKNOWN Unavailable Unavailable REQUEST, DR NONE LISTED Primary Care Unavaila RADHA Kye Admitting Unavailable RADHA OBRIEN Attending Unavailable DAINA, DR WOJCIECH Rivas Consulting UnavailRADHA Monique Consulting Unavailable VIC ADAMES Consulting Unavailable ANNA RICO Consulting Unavailable DO Sulaiman Feldman Primary Care Provider MD Magdy Douglass Admit Provider MD Kiko Maldonado Attending Provider MD Karley Nguyen Other Provider MD Patricio Galaviz Other Provider LEN Kent Other Provider DO Stevie Pichardo Jr Other Provider MD Danny Mills Other Provider MD Víctor Agrawal Other Provider MARY BLANTON Consulting Unavailable MARY BLANTON B Admitting Unavailable MARY BLANTON Attending Unavailable Sulaiman Feldman DO Primary Care Provider Ragini Carmona DO Emergency Provider [phone] Chaz Frey MD Admit Provider Yamila Donald MD Attending Provider Jaylin Fajardo RN Other Provider Unavailable Wojciech Horowitz MD Other Provider Dimitri NELSON, Julito Elizondo Other Provider Butch NELSON, Emy Other Provider Donna Marcelo Other Provider Unavailable Ubaldo Giles, Kashmir Other Provider Sivan Francois DO Other Provider Reno Hubbard MD Other Provider Thanh Kenney DO Other Provider Neville Bush DO Other Provider Bella Cano APRN Other Provider Prem TREVIÑO-CJanie Other Provider Lan FORM MAKER-MANAGER FRONT OFFICE-C, Alejandra Pantoja Other Provider Sulaiman Feldman DO Primary Care Provider Ragini Carmona DO Emergency Provider Chaz Frey MD Admit Provider Yamila Donald MD Attending Provider Donna Marcelo Other Provider Unavailable Ubaldo Giles, Kashmir Other Provider Sivan Francois DO Other Provider Reno Hubbard MD Other Provider Thanh Kenney DO Other Provider Neville Bush DO Other Provider Bella Cano APRN Other Provider Prem TREVIÑO-C, Janie Yates Other Provider Lan FORM MAKER-MANAGER FRONT OFFICE-C, Alejandra Pantoja Other Provider [phone] NO PCP, NO PCP Primary Care Unavailable FREDERIC, EHCLAIR Consulting Unavailable Kiko Maldonado Attending Unavailable Magdy Douglass Admitting Unavailable Sulaiman Feldman Primary Care Unavailable Wendy, Karley Consulting Unavailable Patricio Galaviz Consulting Unavailable Sofia Kent Consulting Unavailable Stevie Pichardo Jr Consulting UnavailDanny Cosby Consulting Unavaila Víctor Martinez Consulting Unavailable Chaz Frey Admitting Unavailable Sulaiman Feldman Primary Care Unavailable Donna Marcelo Consulting Unavailable Yamila Donald Attending Unavailable Kashmir Conner Consulting Unavailable Sivan Francois Consulting Unavailable Reno Hubabrd Consulting Unavailable Thanh Kenney Consulting UnavailNeville Young Consulting Unavailable Bella Cano Consulting Unavailable Janie Amaro Consulting Unavailable Alejandra Montenegro Consulting Unavailable Allergies Allergy Classification Reported Allergen(s) Allergy Type Date of Onset Reaction(s) Facility (1 source) No Known Medication Allergies; Translations: [No Known Medication Allergies] Propensity to adverse reactions to drug (disorder) [facility] Repository (1 source) Codeine; Translations: [CODEINE] Drug Allergy 4 [facility] Repository (1 source) Ketorolac; Translations: [KETOROLAC] Drug Allergy 0 [facility] Repository Medications Current Medications Medication Drug Class(es) Dates Sig (Normalized) Sig (Original) Albuterol (1 source) beta2-Adrenergic Agonist Start: 05-02-2024 take 2 puff(s) by inhalation every four hours as needed Albuterol Active 0 INHALATION Every 4 hours May 02, 2024 12:00am 2 puffs inhaled every 4 hours PRN; 2 puffs q4H PRN Albuterol 90 mcg/actuation aerosol (1 source) Start: 05-02-2024 take 2 puff(s) by inhalation every four hours as needed Albuterol 90 mcg/actuation aerosol Active 0 INHALATION Every 4 hours as needed for rescue inhaler May 01, 2024 11:00pm 2 puffs inhaled every 4 hours PRN; 2 puffs q4H PRN amLODIPine 10 mg oral tablet (3 sources) Dihydropyridine Calcium Channel Bhavana Start: 05-02-2024 take 1 tablet by mouth once daily Amlodipine 10 mg tablet Active 10 MG PO Daily May 01, 2024 11:00pm buprenorphine 8 mg / naloxone 2 mg sublingual film (2 sources) Partial Opioid Agonist, Opioid Antagonist Start: 05-02-2024 Buprenorphine-Na loxone (Suboxone) 8-2 mg film Active 1 FILM BUCCAL Three times daily May 01, 2024 11:00pm Fluticasone Propion-Salmeterol (2 sources) Corticosteroid, beta2-Adrenergic Agonist Start: 05-02-2024 Fluticasone Propion-Salmeter ol (Advair Diskus) 250-50 mcg/dose blister with device Active 1 INH INHALATION Twice daily May 01, 2024 11:00pm Start: 05-02-2024 Fluticasone Pr opion-Salmeterol (Advair Diskus) 250-50 mcg/dose blister with device Active 1 INH INHALATION Twice daily May 02, 2024 12:00am gabapentin 800 mg oral tablet (3 sources) Anti-epileptic Agent Start: 05-02-2024 take 1 tablet by mouth three times daily Gabapentin 800 mg tablet Active 800 MG PO Three times daily May 01, 2024 11:00pm levETIRAcetam 500 mg oral tablet (1 source) Start: 11-21-2024 take 1 tablet by mouth twice daily Levetiracetam (Keppra) 500 mg tablet Active 500 MG PO Twice daily November 21, 2024 12:00am levothyroxine sodium 0.137 mg oral tablet (3 sources) l-Thyroxine Start: 05-02-2024 take 1 tablet by mouth once daily Levothyroxine (Euthyrox) 137 mcg tablet Active 137 MCG PO Daily May 01, 2024 11:00pm Completed/Discontinued Medications Medication Drug Class(es) Dates Sig (Normalized) Sig (Original) levoFLOXacin 750 mg oral tablet (3 sources) Quinolone Antimicrobial Start: 4 End: 5 take 1 tablet by mouth once daily Levofloxacin 750 mg tablet Discontinued 750 MG PO Daily 5 May 05, 2024 11:00pm November 21, 2024 1:33pm methylPREDNISolone 16 mg oral tablet (3 sources) Corticosteroid Start: 4 End: 5 take 1 tablet by mouth once daily Methylprednisolone (Medrol) 16 mg tablet Discontinued 16 MG PO Daily 5 May 05, 2024 11:00pm November 21, 2024 1:33pm nicotine 4 mg inhalation solution (3 sources) Cholinergic Nicotinic Agonist Start: 4 End: 5 Nicotine 10 mg cartridge Discontinued 0 INHALATION Q1H as needed for to stop smoking May 01, 2024 11:00pm November 21, 2024 1:33pm 2puffs inhaled every 1 hour PRN; 2puffs inh Q1H PRN to stop smoking / no more than 16 per day Start: 05-02-2024 Nicotine Activ e 0 INHALATION Q1H May 02, 2024 12:00am 2puffs inhaled every 1 hour PRN; 2puffs inh Q1H PRN to stop smoking / no more than 16 per day Problems Active Problems Problem Classification Problem Date Documented Date Episodic/Chronic Acute cerebrovascular disease (5 sources) Cerebrovascular accident; Translations: [Cerebral infarction, unspecified] Onset: 11-18-2024 11-17-2024 Chronic Alcohol-related disorders (10 sources) Alcohol abuse with intoxication, unspecified; Translations: [Alcohol abuse] Onset: 11-28-2022 05-02-2024 Chronic Chronic obstructive pulmonary disease and bronchiectasis (5 sources) Acute exacerbation of chronic obstructive airways disease; Translations: [Chronic obstructive pulmonary disease with (acute) exacerbation] Onset: 05-01-2024 05-02-2024 Chronic E Codes: Natural/environment (1 source) Exposure to other specified factors, initial encounter; Translations: [EXPOSURE OTHER SPEC FACTORS INITIAL] Onset: 11-28-2022 Episodic E Codes: Unspecified (1 source) Blood alcohol level of 200-239 mg/100 ml; Translations: [BLOOD ALCOHOL LVL 200-239 MG/100 ML] Onset: 11-28-2022 Episodic Epilepsy; convulsions (5 sources) Seizure; Translations: [Unspecified convulsions] Onset: 11-18-2024 11-17-2024 Episodic Essential hypertension (6 sources) Essential (primary) hypertension; Translations: [Hypertensive disorder] [...] 11-24-2022 Episodic Other aftercare (1 source) Other detention (current) drug therapy; Translations: [OTH PRISON CURRENT DRUG THERAPY] Onset: 11-28-2022 Episodic Other nervous system disorders (2 sources) Other chronic pain; Translations: [Other chronic pain] Onset: 05-27-2017 Chronic Other nervous system disorders (3 sources) Metabolic encephalopathy; Translations: [Metabolic encephalopathy] 05-02-2024 Chronic Other nervous system disorders (2 sources) Metabolic encephalopathy; Translations: [Metabolic encephalopathy] Onset: 05-01-2024 05-06-2024 Chronic Other screening for suspected conditions (not mental disorders or infectious disease) (8 sources) Raised cardiac enzyme or marker; Translations: [Other specified abnormal findings of blood chemistry] Onset: 05-01-2024 05-02-2024 Episodic Residual codes; unclassified (3 sources) Tobacco user; Translations: [Tobacco use] 05-02-2024 Episodic Residual codes; unclassified (4 sources) Altered mental status, unspecified; Translations: [Altered mental status] Onset: 07-15-2024 11-17-2024 Episodic Residual codes; unclassified (2 sources) Altered mental status; Translations: [Altered mental status, unspecified] 11-17-2024 Episodic Skull and face fractures (3 sources) Fracture of nasal bones, initial encounter for closed fracture; Translations: [Fracture of orbital floor, right side, initial encounter for closed fracture] Onset: 11-28-2022 Episodic Spondylosis; intervertebral disc disorders; other back problems (3 sources) Cervicalgia; Translations: [Low back pain] Onset: 05-27-2017 Episodic Substance-related disorders (15 sources) Opioid dependence, uncomplicated; Translations: [Other stimulant abuse, uncomplicated] Onset: 01-29-2018 05-02-2024 Chronic Thyroid disorders (1 source) Hypothyroidism, unspecified; Translations: [HYPOTHYROIDISM UNSPECIFIED] Onset: 11-28-2022 Chronic Unclassified (1 source) Alcohol use, unspecified with withdrawal, unspecified; Translations: [Alcohol use, unspecified with withdrawal, unspecified] Onset: 05-01-2024 Past or Other Problems Problem Classification Problem Date Documented Da te Episodic/Chronic Pneumonia (except that caused by tuberculosis or sexually transmitted disease) (9 sources) Community acquired pneumonia; Translations: [Pneumonia, unspecified organism] Onset: 05-01-2024 05-02-2024 Episodic Residual codes; unclassified (2 sources) Tobacco use; Translations: [Tobacco use disorder] Onset: 05-01-2024 05-06-2024 Episodic Respiratory failure; insufficiency; arrest (adult) (6 sources) Acute hypoxemic and hypercapnic respiratory failure; Translations: [Acute respiratory failure with hypoxia] Onset: 05-01-2024 05-02-2024 Episodic Results Test Name Value Interpretation Reference Range Facility Basic Metabolic Panelon Anion gap [Moles/Vol] 13.2 mmol/L Normal 6.0-15.0 e [facility] Comment on above: Performed By: #### C BCNO, BMP, MG #### [facility] [address] [place] [id number] [place] Calcium [Mass/Vol] 9.7 mg/dL Normal 8.6-10.3 [facility] Comment on above: Performed By: #### C BCNO, BMP, MG #### [facility] [address] [place] [id number] [place] Chloride [Moles/Vol] 105 mmol/L Normal 98-107 [facility] Comment on above: Performed By: #### C BCNO, BMP, MG #### [facility] [address] [place] [address] [place] CO2 [Moles/Vol] 25.2 mmol/L Normal 21.0-31.0 [facility] Comment on above: Performed By: #### C BCNO, BMP, MG #### [facility] [address] [place] [address] [place] Creatinine [Mass/Vol] 0.81 mg/dL Normal 0.70-1.30 [facility] Comment on above: Performed By: #### C BCNO, BMP, MG #### [facility] [address] [place] [address] [place] Creatinine Clr Calc Pharmacy 98.46 Normal [facility] Comment on above: Performed By: #### C BCNO, BMP, MG #### [facility] [address] [place] [address] [place] GFR/1.73 sq M.predicted MDRD (S/P/Bld) [Vol rate/Area] mL/min/{1.73_m2} Normal [facility] Comment on above: Performed By: #### C HATTIE, BMP, MG #### [facility] [address] [place] [address] [place] Glucose [Mass/Vol] 103 mg/dL High 70-100 [facility] Comment on above: Result Comment: [facility] Glucose Reference Range is dependent on time and content of last meal. Glucose of more than 200 mg/dL in a nonstressed, ambulatory subject supports the diagnosis of Diabetes Mellitus. ADA recommended reference range Performed By: #### C HATTIE BMP, MG #### [facility] [address] Potassium [Moles/Vol] 3.4 mmol/L Low 3.5-5.1 [facility] Comment on above: Performed By: #### C HATTIE BMP, MG #### [facility] [address] Sodium [Moles/Vol] 140 mmol/L Normal 136-145 [facility] Comment on above: Performed By: #### C HATTIE BMP, MG #### [facility] [address] Urea nitrogen [Mass/Vol] 19 mg/dL Normal 7-25 [facility] Comment on above: Performed By: #### C HATTIE BMP, MG #### [facility] [address] [place] [address] [place] Calcium [Mass/volume] in Ser um or PlasmaOrdered By: Yamila Donald on 11-19-2024 Calcium [Mass/Vol] Calcium [Mass/volume ] in Serum or Plasma 8.6-10.3 [facility] Carbon dioxide, total [Moles /volume] in Serum or PlasmaOrdered By: Yamila Donald on 11-19-2024 CO2 [Moles/Vol] Carbon dioxide, tota l [Moles/volume] in Serum or Plasma 21.0-31.0 [facility] Chloride [Moles/volume] in S andrei or PlasmaOrdered By: Yamila Donald on 11-19-2024 Chloride [Moles/Vol] Chloride [Moles/vol ume] in Serum or Plasma 98-107 [facility] Creatinine [Mass/volume] in Serum or PlasmaOrdered By: Yamila Donald on 11-19-2024 Creatinine [Mass/Vol] Creatinine [Mass/v olume] in Serum or Plasma 0.70-1.30 [facility] Erythrocyte distribution wid th Auto (RBC) [Ratio]Ordered By: Yamila Donald on 11-19-2024 Erythrocyte distribution width (RBC) [Ratio] Erythrocyte distribution width [Ratio] by Automated count 12.0-14.8 [facility] Glucose [Mass/volume] in Ser um or PlasmaOrdered By: Yamila Donald on 11-19-2024 Glucose [Mass/Vol] Glucose [Mass/volume ] in Serum or Plasma High 70-100 [facility] Comment on above: ADA recommended refe rence rangeRandom Glucose Reference Range is dependent on time and content of last meal. Glucose of more than 200 mg/dL in a nonstressed, ambulatory subject supports the diagnosis of Diabetes Mellitus. Hematocrit Auto (Bld) [Volum e fraction]Ordered By: Yamila Donald on 11-19-2024 Hematocrit (Bld) [Volume fraction] Hematocrit [Volume Fraction] of Blood by Automated count 38.8-50.0 [facility] Hemoglobin [Mass/volume] in BloodOrdered By: Yamila Donald on 11-19-2024 Hemoglobin (Bld) [Mass/Vol] Hemoglobin [Mass/volume] in Blood 13.0-17.0 [facility] Hemogram CBC Without Diffon 11-19-2024 Erythrocyte distribution width (RBC) [Ratio] 13.7 % Normal 12.0-14.8 [facility] Comment on above: Performed By: #### C BCNO, BMP, MG #### [address] Hematocrit (Bld) [Volume fraction] 45.8 % Normal 38.8-50.0 [facility] Comment on above: Performed By: #### C BCNO, BMP, MG #### [address] Hemoglobin (Bld) [Mass/Vol] 15.4 g/dL Normal 13.0-17.0 [facility] Comment on above: Performed By: #### C BCNO, BMP, MG #### [address] MCH (RBC) [Entitic mass] 29.0 pg Normal 27.5-35.2 [facility] Comment on above: Performed By: #### C BCNO, BMP, MG #### [address] MCV (RBC) [Entitic vol] 86.4 fL Normal 83.5-101 [facility] Comment on above: Performed By: #### C BCNO, BMP, MG #### [address] Mean Corpuscular HGB Conc 33.5 g/dL Normal 32.5-35.6 [facility] Comment on above: Performed By: #### C BCNO, BMP, MG #### [address] Platelet mean volume (Bld) [Entitic vol] 7.9 fL Normal 6.6-10.1 [facility] Comment on above: Result Comment: PERF ORMED BY: [place] [address] PATHOLOGIST BRIQUETTE OPERATOR VÍCTOR LUCERO M.D. Performed By: #### C BCNO, BMP, MG #### [address] Platelets (Bld) [#/Vol] 203 10*3/uL Normal 150-450 [facility] Comment on above: Performed By: #### C BCNO, BMP, MG #### [address] RBC (Bld) [#/Vol] 5.31 10*6/uL Normal 3.90-5.60 [facility] Comment on above: Performed By: #### C BCNO, BMP, MG #### [facility] [address] WBC (Bld) [#/Vol] 8.2 10*3/uL Normal 4.1-10.5 [facility] Comment on above: Performed By: #### C BCNO, BMP, MG #### [facility] [address] Leukocytes [#/volume] correc srinivas for nucleated erythrocytes in Blood by Automated counOrdered By: Yamila Donald on 11-19-2024 WBC corrected for nucl RBC Auto (Bld) [#/Vol] Leukocytes [#/volume] corrected for nucleated erythrocytes in Blood by Automated coun 4.1-10.5 [facility] MCH Auto (RBC) [Entitic mass ]Ordered By: Yamila Donald on 11-19-2024 MCH (RBC) [Entitic mass] MCH [Entitic mass] by Automated count 27.5-35.2 [facility] MCHC Auto (RBC) [Mass/Vol]Or dered By: Yamila Donald on 11-19-2024 MCHC (RBC) [Mass/Vol] MCHC [Mass/volume] by Automated count 32.5-35.6 [facility] MCV Auto (RBC) [Entitic vol] Ordered By: Yamila Donald on 11-19-2024 MCV (RBC) [Entitic vol] MCV [Entitic volume] by Automated count 83.5-101 [facility] MR head/brain wo conon 11-19 MR head/brain wo con [facility] [place] [address] MRI Report Signed Patient: Aaron Olivarez MR#: [id number] : 1960 Acct:[id number] Age/Sex: 64 / M ADM Date: 11/18/24 Loc: Room: [address] [place] [address] Type: ADM IN Attending Dr: Yamila Donald MD Copies to: MD Chaz Trinidad MD Ordering Provider: Chaz Frey MD Date of Service: 11/19/24 MR/MR head/brain wo con: Altered mental status, CVA, SZ EXAMINATION: MRI OF THE BRAIN WITHOUT CONTRAST CLINICAL HISTORY: Neuro symptoms status post fall, witnessed seizure activity COMPARISON: CT head 11/17/2024 TECHNIQUE: Multiecho, multiplanar imaging of the brain was performed without enhancement. FINDINGS: Motion degrades multiple imaging sequences is degrades evaluation. No restricted diffusion. Mild generalized involutional changes more so than expected for the the patient's age with prominence of the ventricles and sulci. No shift of midline structures. Basal cisterns are patent. Moderate to severe confluent periventricular and subcortical T2 prolongation suggestive for chronic microvascular disease. Encephalomalacia left anterior frontal lobe. Encephalomalacia left gyrus rectus The major intracranial arterial flow voids are preserved. No definite foci of abnormal GRE signal on the motion degraded images. Mild ethmoid sinus mucoperiosteal thickening MR/MR head/brain wo con IMPRESSION: MODERATE TO SEVERE CHRONIC MICROVASCULAR DISEASE AND CENTRAL INVOLUTIONAL CHANGES NEGATIVE FOR ACUTE STROKE OR MIDLINE SHIFT. ENCEPHALOMALACIA GREATEST LEFT ANTERIOR FRONTAL LOBE AND LEFT GYRUS RECTUS MOTION DEGRADATION. Impression dictated by: Regino Mckinley M.D.11/19/2024 4:50 PM Dictation Location: [place] [address] Transcribed By: [facility] 11/19/24 1650 Dictated By: Regino Mckinley MD 11/19/24 1644 Signed By: 11/19/24 1650 Normal [facility] Magnesiumon 11-19-2024 Magnesium [Mass/Vol] 1.7 mg/dL Low 1.9-2.7 [facility] Comment on above: Result Comment: PERF ORMED BY: [place] [address] PATHOLOGIST BRIQUETTE OPERATOR VÍCTOR LUCERO M.D. Performed By: #### C BCNO, BMP, MG #### [address] Magnesium [Mass/volume] in S andrei or PlasmaOrdered By: Yamila Donald on 11-19-2024 Magnesium [Mass/Vol] Magnesium [Mass/vol ume] in Serum or Plasma Low 1.9-2.7 [facility] Magnetic resonance imaging r eportOrdered By: Regino Mckinley on 11-19-2024 Study report [facility] [address] [place] [address] [place], [place] [id number] MRI Report Signed Patient: Aaron Olivarez MR#: [id number] : 1960 Acct:[id number] Age/Sex: 64 / M ADM Date: 5 Loc: Room: [address] [place] [address] Type: ADM IN Attending Dr: Yamila Donald MD Copies to: MD Chaz Trinidad MD~ Ordering Provider: Chaz Frey MD Date of Service: 11/19/24 MR/MR head/brain wo con: Altered mental status, CVA, SZ EXAMINATION: MRI OF THE BRAIN WITHOUT CONTRAST CLINICAL HISTORY: Neuro symptoms status post fall, witnessed seizure activity COMPARISON: CT head 11/17/2024 TECHNIQUE: Multiecho, multiplanar imaging of the brain was performed without enhancement. FINDINGS: Motion degrades multiple imaging sequences is degrades evaluation. No restricted diffusion. Mild generalized involutional changes more so than expected for the the patient's age with prominence of the ventricles and sulci. No shift of midline structures. Basal cisterns are patent. Moderate to severe confluent periventricular and subcortical T2 prolongation suggestive for chronicmicrovascular disease. Encephalomalacia left anterior frontal lobe. Encephalomalacia left gyrus rectus The major intracranial arterial flow voids are preserved. No definite foci of abnormal GRE signal on the motion degraded images. Mild ethmoid sinus mucoperiosteal thickening MR/MR head/brain wo con IMPRESSION: MODERATE TO SEVERE CHRONIC MICROVASCULAR DISEASE AND CENTRAL INVOLUTIONAL CHANGES NEGATIVE FOR ACUTE STROKE OR MIDLINE SHIFT. ENCEPHALOMALACIA GREATEST LEFT ANTERIOR FRONTAL LOBE AND LEFT GYRUS RECTUS MOTION DEGRADATION. Impression dictated by: Regino Mckinley M.D.11/19/2024 4:50 PM Dictation Location: [place] [address] Transcribed By: [facility] 11/19/24 165 Dictated By: Regino Mckinley MD 11/19/24 1647 Signed By: 11/19/24 1650 [facility] Work Phone: No Panel InformationOrdered By: Yamila Donald on 11-19-2024 Estimated GFR (CKD-EPI) > 60.0 mL/Min [facility] Creatinine Clearance (Chem 98.46 [facility] Platelet mean volume Auto (B ld) [Entitic vol]Ordered By: Yamila Donald on 11-19-2024 Platelet mean volume (Bld) [Entitic vol] Platelet mean volume [Entitic volume] in Blood by Automated count 6.6-10.1 [facility] Platelets Auto (Bld) [#/Vol] Ordered By: Yamila Donald on 11-19-2024 Platelets (Bld) [#/Vol] Platelets [#/volume] in Blood by Automated count 150-450 [facility] Potassium [Moles/volume] in Serum or PlasmaOrdered By: Yamila Donald on 11-19-2024 Potassium [Moles/Vol] Potassium [Moles/v olume] in Serum or Plasma Low 3.5-5.1 [facility] RBC Auto (Bld) [#/Vol]Ordere d By: Yamila Donald on 11-19-2024 RBC (Bld) [#/Vol] Erythrocytes [#/volu me] in Blood by Automated count 3.90-5.60 [facility] Serum or plasma anion gap de terminationOrdered By: Yamila Donald on 11-19-2024 Anion gap [Moles/Vol] Serum or plasma an ion gap determination 6.0-15.0 [facility] Sodium [Moles/volume] in Ser um or PlasmaOrdered By: Yamila Donald on 11-19-2024 Sodium [Moles/Vol] Sodium [Moles/volume ] in Serum or Plasma 136-145 [facility] Urea nitrogen [Mass/volume] in Serum or PlasmaOrdered By: Yamila Wassoeduar on 11-19-2024 Urea nitrogen [Mass/Vol] Urea nitrogen [Mass/volume] in Serum or Plasma 7-25 [facility] Alanine aminotransferase [En zymatic activity/volume] in Serum or PlasmaOrdered By: Chaz Frey on 11-18-2024 ALT [Catalytic activity/Vol] Alanine aminotransferase [Enzymatic activity/volume] in Serum or Plasma 7-52 [facility] Albumin [Mass/volume] in Ser um or Plasma by Bromocresol green (BCG) dye binding methoOrdered By: Chaz Frey on 11-18-2024 Albumin BCG dye [Mass/Vol] Albumin [Mass/volume] in Serum or Plasma by Bromocresol green (BCG) dye binding metho 3.5-5.7 [facility] Alkaline phosphatase [Enzyma tic activity/volume] in Serum or PlasmaOrdered By: Chaz Frey on 11-18-2024 ALP [Catalytic activity/Vol] Alkaline phosphatase [Enzymatic activity/volume] in Serum or Plasma 34-104 [facility] Aspartate aminotransferase [ Enzymatic activity/volume] in Serum or PlasmaOrdered By: Chaz Frey on 11-18-2024 AST [Catalytic activity/Vol] Aspartate aminotransferase [Enzymatic activity/volume] in Serum or Plasma 13-39 [facility] Basophils Auto (Bld) [#/Vol] Ordered By: Chaz Frey on 11-18-2024 Basophils (Bld) [#/Vol] Automated basophil count 0.0-0.2 [facility] Basophils/100 WBC Auto (Bld) Ordered By: Chaz Frey on 11-18-2024 Basophils/100 WBC (Bld) Automated basophil % . [facility] Bilirubin.total [Mass/volume ] in Serum or PlasmaOrdered By: Chaz Frey on 11-18-2024 Bilirubin [Mass/Vol] Bilirubin.total [Mass/volume] in Serum or Plasma High 0.3-1.0 [facility] Calcium [Mass/volume] in Ser um or PlasmaOrdered By: Chaz Frey on 11-18-2024 Calcium [Mass/Vol] Calcium [Mass/volume ] in Serum or Plasma 8.6-10.3 [facility] Carbon dioxide, total [Moles /volume] in Serum or PlasmaOrdered By: Chaz Frey on 11-18-2024 CO2 [Moles/Vol] Carbon dioxide, tota l [Moles/volume] in Serum or Plasma High 21.0-31.0 [facility] Chloride [Moles/volume] in S andrei or PlasmaOrdered By: Chaz Frey on 11-18-2024 Chloride [Moles/Vol] Chloride [Moles/vol ume] in Serum or Plasma 98-107 [facility] Complete Blood Count Auto Di ffon 11-18-2024 Basophils (Bld) [#/Vol] 0.0 10*3/uL Normal 0.0-0.2 [facility] Comment on above: Result Comment: PERF ORMED BY: [place] [address] PATHOLOGIST BRIQUETTE OPERATOR VÍCTOR LUCERO M.D. Performed By: #### C BC, PT, PTT, CK, HS TROP, CMP, PRL #### [address] Basophils/100 WBC (Bld) 0.6 % Normal . [facility] Comment on above: Performed By: #### C BC, PT, PTT, CK, HS TROP, CMP, PRL #### [address] Eosinophils (Bld) [#/Vol] 0.0 10*3/uL Normal 0.0-0.45 [facility] Comment on above: Performed By: #### C BC, PT, PTT, CK, HS TROP, CMP, PRL #### [address] Eosinophils/100 WBC (Bld) 0.1 % Normal . [facility] Comment on above: Performed By: #### C BC, PT, PTT, CK, HS TROP, CMP, PRL #### [address] Erythrocyte distribution width (RBC) [Ratio] 13.3 % Normal 12.0-14.8 [facility] Comment on above: Performed By: #### C BC, PT, PTT, CK, HS TROP, CMP, PRL #### [address] Hematocrit (Bld) [Volume fraction] 43.0 % Normal 38.8-50.0 [facility] Comment on above: Performed By: #### C BC, PT, PTT, CK, HS TROP, CMP, PRL #### [address] Hemoglobin (Bld) [Mass/Vol] 14.6 g/dL Normal 13.0-17.0 [facility] Comment on above: Performed By: #### C BC, PT, PTT, CK, HS TROP, CMP, PRL #### [address] Lymphocytes (Bld) [#/Vol] 1.4 10*3/uL Normal 1.00-4.8 [facility] Comment on above: Performed By: #### C BC, PT, PTT, CK, HS TROP, CMP, PRL #### [address] Lymphocytes/100 WBC (Bld) 20.9 % Normal . [facility] Comment on above: Performed By: #### C BC, PT, PTT, CK, HS TROP, CMP, PRL #### [address] MCH (RBC) [Entitic mass] 29.1 pg Normal 27.5-35.2 [facility] Comment on above: Performed By: #### C BC, PT, PTT, CK, HS TROP, CMP, PRL #### [address] MCV (RBC) [Entitic vol] 85.8 fL Normal 83.5-101 [facility] Comment on above: Performed By: #### C BC, PT, PTT, CK, HS TROP, CMP, PRL #### [address] Mean Corpuscular HGB Conc 33.9 g/dL Normal 32.5-35.6 [facility] Comment on above: Performed By: #### C BC, PT, PTT, CK, HS TROP, CMP, PRL #### [address] Monocytes (Bld) [#/Vol] 0.6 10*3/uL Normal 0.0-0.8 [facility] Comment on above: Performed By: #### C BC, PT, PTT, CK, HS TROP, CMP, PRL #### [address] Monocytes/100 WBC (Bld) 8.5 % Normal . [facility] Comment on above: Performed By: #### C BC, PT, PTT, CK, HS TROP, CMP, PRL #### [address] Neutrophils (Bld) [#/Vol] 4.7 10*3/uL Normal 1.8-7.7 [facility] Comment on above: Performed By: #### C BC, PT, PTT, CK, HS TROP, CMP, PRL #### [address] Neutrophils/100 WBC (Bld) 69.9 % Normal . [facility] Comment on above: Performed By: #### C BC, PT, PTT, CK, HS TROP, CMP, PRL #### [address] NRBC% 0.1 /100{WBC} Normal 0-0.5 [facility] Comment on above: Performed By: #### C BC, PT, PTT, CK, HS TROP, CMP, PRL #### [address] Platelet mean volume (Bld) [Entitic vol] 7.6 fL Normal 6.6-10.1 [facility] Comment on above: Performed By: #### C BC, PT, PTT, CK, HS TROP, CMP, PRL #### [place] [address] [place] Platelets (Bld) [#/Vol] 216 10*3/uL Normal 150-450 [facility] Comment on above: Performed By: #### C BC, PT, PTT, CK, HS TROP, CMP, PRL #### [place] [address] [place] RBC (Bld) [#/Vol] 5.01 10*6/uL Normal 3.90-5.60 [facility] Comment on above: Performed By: #### C BC, PT, PTT, CK, HS TROP, CMP, PRL #### [address] WBC (Bld) [#/Vol] 6.7 10*3/uL Normal 4.1-10.5 [facility] Comment on above: Performed By: #### C BC, PT, PTT, CK, HS TROP, CMP, PRL #### [address] Comprehensive Metabolic Pane wilner 11-18-2024 Albumin [Mass/Vol] 3.9 g/dL Normal 3.5-5.7 [facility] Comment on above: Performed By: #### C BC, PT, PTT, CK, HS TROP, CMP, PRL #### [address] Albumin/Globulin [Mass ratio] 1.6 {ratio} Normal [facility] Comment on above: Performed By: #### C BC, PT, PTT, CK, HS TROP, CMP, PRL #### [address] ALP [Catalytic activity/Vol] 93 U/L Normal 34-104 [facility] Comment on above: Performed By: #### C BC, PT, PTT, CK, HS TROP, CMP, PRL #### [address] ALT [Catalytic activity/Vol] 10 U/L Normal 7-52 [facility] Comment on above: Performed By: #### C BC, PT, PTT, CK, HS TROP, CMP, PRL #### [address] Anion gap [Moles/Vol] 9.7 mmol/L Normal 6.0-15.0 [facility] Comment on above: Performed By: #### C BC, PT, PTT, CK, HS TROP, CMP, PRL #### [place] [address] AST [Catalytic activity/Vol] 16 U/L Normal 13-39 [facility] Comment on above: Performed By: #### C BC, PT, PTT, CK, HS TROP, CMP, PRL #### [address] Bilirubin [Mass/Vol] 1.2 mg/dL High 0.3-1.0 [facility] Comment on above: Performed By: #### C BC, PT, PTT, CK, HS TROP, CMP, PRL #### [address] Calcium [Mass/Vol] 9.4 mg/dL Normal 8.6-10.3 [facility] Comment on above: Performed By: #### C BC, PT, PTT, CK, HS TROP, CMP, PRL #### [address] Chloride [Moles/Vol] 105 mmol/L Normal 98-107 [facility] Comment on above: Performed By: #### C BC, PT, PTT, CK, HS TROP, CMP, PRL #### [address] CO2 [Moles/Vol] 31.4 mmol/L High 21.0-31.0 [facility] Comment on above: Performed By: #### C BC, PT, PTT, CK, HS TROP, CMP, PRL #### [address] Creatinine [Mass/Vol] 1.10 mg/dL Normal 0.70-1.30 [facility] Comment on above: Performed By: #### C BC, PT, PTT, CK, HS TROP, CMP, PRL #### [address] Creatinine Clr Calc Pharmacy 72.51 Normal [facility] Comment on above: Performed By: #### C BC, PT, PTT, CK, HS TROP, CMP, PRL #### [place] [address] [place] GFR/1.73 sq M.predicted MDRD (S/P/Bld) [Vol rate/Area] mL/min/{1.73_m2} Normal [facility] Comment on above: Performed By: #### C BC, PT, PTT, CK, HS TROP, CMP, PRL #### [address] Globulin (S) [Mass/Vol] 2.4 g/dL Normal [facility] Comment on above: Performed By: #### C BC, PT, PTT, CK, HS TROP, CMP, PRL #### [address] Glucose [Mass/Vol] 113 mg/dL High 70-100 [facility] Comment on above: Result Comment: [facility] Glucose Reference Range is dependent on time and content of last meal. Glucose of more than 200 mg/dL in a nonstressed, ambulatory subject supports the diagnosis of Diabetes Mellitus. ADA recommended reference range Performed By: #### C BC, PT, PTT, CK, HS TROP, CMP, PRL #### [address] Potassium [Moles/Vol] 4.1 mmol/L Normal 3.5-5.1 [facility] Comment on above: Performed By: #### C BC, PT, PTT, CK, HS TROP, CMP, PRL #### [address] Protein [Mass/Vol] 6.3 g/dL Low 6.4-8.9 [facility] Comment on above: Performed By: #### C BC, PT, PTT, CK, HS TROP, CMP, PRL #### [address] Sodium [Moles/Vol] 142 mmol/L Normal 136-145 [facility] Comment on above: Performed By: #### C BC, PT, PTT, CK, HS TROP, CMP, PRL #### [address] Urea nitrogen [Mass/Vol] 22 mg/dL Normal 7-25 [facility] Comment on above: Performed By: #### C BC, PT, PTT, CK, HS TROP, CMP, PRL #### [facility] [address] [id number] [facility] Creatinine [Mass/volume] in Serum or PlasmaOrdered By: Chaz Frey on 11-18-2024 Creatinine [Mass/Vol] Creatinine [Mass/v olume] in Serum or Plasma 0.70-1.30 [facility] echo transthoracicon [facility] echo transthoracic [facility] [address] [place] [address] [place] [address] Echocardiogram Signed Patient: Aaron Olivarez MR#: [id number] 00 : 1960 Acct:[id number] Age/Sex: 64 / M ADM Date: 11/18/24 Loc: Room: [address] [place] [address] Type: ADM IN Attending Dr: Yamila Donald MD Ordering Provider: Chaz Frey MD Date of Service: 11/17/2404/06/1256 [facility] echo transthoracic: TIA Copies to: MD Chaz Peters MD BSA: 2.0 m2 BP: 179/103 mmHg HR: 74 Reason For Study: TIA History: HTN, COPD, Smoker, Drug Abuse, Alchohol Abuse Interpretation Summary Ejection Fraction = 60-65%. The left ventricular wall motion is normal. A variety of Doppler measurements indicate normal left ventricular diastolic function. Mild concentric left ventricular hypertrophy. Trivial valvular aortic stenosis. There is trace tricuspid regurgitation. Compared to prior study, there is no significant change. Procedure/Quality: A two-dimensional transthoracic echocardiogram with color flow and Doppler was performed. The study was technically fair in quality. Left Ventricle: The left ventricular size is normal. Mild concentric left ventricular hypertrophy. Ejection Fraction = 60-65%. A variety of Doppler measurements indicate normal left ventricular diastolic function. The left ventricular wall motion is normal. Left Atrium: The left atrium appears normal in size. The atrial septum appears normal. Right Atrium: The right atrium appears normal in size. Right Ventricle: The right ventricular size, thickness and function are normal. Aortic Valve: The aortic valve is mildly calcified. Trivial valvular aortic stenosis. No aortic regurgitation is present. Mitral Valve: The mitral valve is normal in structure and function. There is no mitral regurgitation noted. Tricuspid Valve: The tricuspid valve is normal in structure and function. There is trace tricuspid regurgitation. Pulmonic Valve: The pulmonic valve is normal in structure and function. Arteries: The aortic root is normal size. Pericardium/Pleura: No pericardial effusion seen. There is no pleural effusion. IVC/Hepatic Veins: The inferior vena cava is normal in size, with a normal collapsibility index. Measurements with Normals IVSd: 1.3 cm (0.7-1.1 cm)LVIDd: 4.4 cm (3.7-5.4 cm) LVPWd: 1.2 cm (0.7-1.1 cm)LVIDs: 3.1 cm (2.3-3.6 cm) LA dimension: 3.6 cm (2.3-4.0 cm)Ao root diam: 3.2 cm(2.0-3.6 cm) asc Aorta Diam: 3.5 cm(2.1-3.4cm) Doppler with Normals RVSP(TR): 32.5 mmHg (18-35mmHg) LV V1 max: 78.3 cm/sec (0.7-1.7m/s)MV E max gonzález: 60.0 cm/sec(0.8-1.3m/s) MV A max gonzález: 73.7 cm/sec(0.0-0.0m/s) MV E/A: 0.81 (<1.5) MMode/2D Measurements Calculations RVDd: 4.4 cm FS: 29.5 % Ao root area: LVOT diam: 2.0 cm TAPSE: 2.4 cm EDV(Teich): 8.0 cm2 LVOT area: RV S González: 87.7 ml 3.1 cm2 12.0 cm/sec ESV(Teich): 37.9 ml EF(Teich): 56.8 % Doppler Measurements Calculations MV dec time: E/E' lat: 8.1 MV dec slope: Ao V2 max: 0.34 sec E/E' med: 7.8 177.0 cm/sec2 187.0 cm/sec Ao max P.0 mmHg Ao mean P.0 mmHg Ao V2 mean: 140.0 cm/sec Ao V2 VTI: 37.6 cm LAMONT(I,D): 1.7 cm2 LAMONT(V,D): 1.3 cm2 __ LV V1 max PG: TV max PG: TR max gonzález: 2.5 mmHg 27.0 mmHg 262.0 cm/sec LV V1 mean PG: TR max P.5 mmHg 1.0 mmHg RAP systole: 5.0 mmHg LV V1 mean: 57.0 cm/sec LV V1 VTI: 19.8 cm ___ Transcribed By: SCV Performed At: 11/18/24 1424 Signed By: Katherin Chisholm MD 11/18/24 1643 Normal [facility] Eosinophils Auto (Bld) [#/Vo l]Ordered By: Chaz Frey on 11-18-2024 Eosinophils (Bld) [#/Vol] Automated eosinophil count 0.0-0.45 [facility] Eosinophils/100 WBC Auto (Bl d)Ordered By: Chaz Frey on 11-18-2024 Eosinophils/100 WBC (Bld) Automated eosinophil % . [facility] Erythrocyte distribution wid th Auto (RBC) [Ratio]Ordered By: Chaz Frey on 11-18-2024 Erythrocyte distribution width (RBC) [Ratio] Erythrocyte distribution width [Ratio] by Automated count 12.0-14.8 [facility] Globulin Calc (S) [Mass/Vol] Ordered By: Chaz Frey on 11-18-2024 Globulin (S) [Mass/Vol] Serum globulin measurement by calculation (mass/volume) [facility] Glucose [Mass/volume] in Ser um or PlasmaOrdered By: Chaz Frey on 11-18-2024 Glucose [Mass/Vol] Glucose [Mass/volume ] in Serum or Plasma High 70-100 [facility] Comment on above: ADA recommended refe rence rangeRandom Glucose Reference Range is dependent on time and content of last meal. Glucose of more than 200 mg/dL in a nonstressed, ambulatory subject supports the diagnosis of Diabetes Mellitus. Hematocrit Auto (Bld) [Volum e fraction]Ordered By: Chaz Frey on 11-18-2024 Hematocrit (Bld) [Volume fraction] Hematocrit [Volume Fraction] of Blood by Automated count 38.8-50.0 [facility] Hemoglobin [Mass/volume] in BloodOrdered By: Chaz Frey on 11-18-2024 Hemoglobin (Bld) [Mass/Vol] Hemoglobin [Mass/volume] in Blood 13.0-17.0 [facility] Leukocytes [#/volume] correc srinivas for nucleated erythrocytes in Blood by Automated counOrdered By: Chaz Frey on 11-18-2024 WBC corrected for nucl RBC Auto (Bld) [#/Vol] Leukocytes [#/volume] corrected for nucleated erythrocytes in Blood by Automated coun 4.1-10.5 [facility] Lymphocytes Auto (Bld) [#/Vo l]Ordered By: Chaz Frey on 11-18-2024 Lymphocytes (Bld) [#/Vol] Lymphocytes [#/volume] in Blood by Automated count 1.00-4.8 [facility] Lymphocytes/100 WBC Auto (Bl d)Ordered By: Chaz Frey on 11-18-2024 Lymphocytes/100 WBC (Bld) Lymphocytes/100 leukocytes in Blood by Automated count . [facility] MCH Auto (RBC) [Entitic mass ]Ordered By: Chaz Frey on 11-18-2024 MCH (RBC) [Entitic mass] MCH [Entitic mass] by Automated count 27.5-35.2 [facility] MCHC Auto (RBC) [Mass/Vol]Or dered By: Chaz Frey on 11-18-2024 MCHC (RBC) [Mass/Vol] MCHC [Mass/volume] by Automated count 32.5-35.6 [facility] MCV Auto (RBC) [Entitic vol] Ordered By: Chaz Frey on 11-18-2024 MCV (RBC) [Entitic vol] MCV [Entitic volume] by Automated count 83.5-101 [facility] Monocytes Auto (Bld) [#/Vol] Ordered By: Chaz Frey on 11-18-2024 Monocytes (Bld) [#/Vol] Automated blood monocyte count 0.0-0.8 [facility] Monocytes/100 WBC Auto (Bld) Ordered By: Chaz Frey on 11-18-2024 Monocytes/100 WBC (Bld) Automated monocyte % . [facility] Neutrophils Auto (Bld) [#/Vo l]Ordered By: Chaz Frey on 11-18-2024 Neutrophils (Bld) [#/Vol] Neutrophils [#/volume] in Blood by Automated count 1.8-7.7 [facility] Neutrophils/100 WBC Auto (Bl d)Ordered By: Chaz Frey on 11-18-2024 Neutrophils/100 WBC (Bld) Automated neutrophil % . [facility] No Panel InformationOrdered By: Chaz Frey on 11-18-2024 Estimated GFR (CKD-EPI) > 60.0 mL/Min [facility] Creatinine Clearance (Chem 72.51 [facility] Nucleated erythrocytes [Pres ence] in Blood by Automated countOrdered By: Chaz Frey on 11-18-2024 Nucleated RBC Auto Ql (Bld) Nucleated erythrocytes [Presence] in Blood by Automated count 0-0.5 [facility] Platelet mean volume Auto (B ld) [Entitic vol]Ordered By: Chaz Frey on 11-18-2024 Platelet mean volume (Bld) [Entitic vol] Platelet mean volume [Entitic volume] in Blood by Automated count 6.6-10.1 [facility] Platelets Auto (Bld) [#/Vol] Ordered By: Chaz Frey on 11-18-2024 Platelets (Bld) [#/Vol] Platelets [#/volume] in Blood by Automated count 150-450 [facility] Potassium [Moles/volume] in Serum or PlasmaOrdered By: Chaz Frey on 11-18-2024 Potassium [Moles/Vol] Potassium [Moles/v olume] in Serum or Plasma 3.5-5.1 [facility] Prolactinon 11-18-2024 Prolactin 16.14 ng/mL High 2.64-13.13 [facility] Comment on above: Result Comment: PERF ORMED BY: [place] [address] PATHOLOGIST BRIQUETTE OPERATOR VÍCTOR LUCERO M.D. Performed By: #### C BC, PT, PTT, CK, HS TROP, CMP, PRL #### [facility] [address] Prolactin [Mass/volume] in S andrei or PlasmaOrdered By: Chaz Frey on 11-18-2024 Prolactin [Mass/Vol] Prolactin [Mass/vol ume] in Serum or Plasma High 2.64-13.13 [facility] Protein [Mass/volume] in Ser um or PlasmaOrdered By: Chaz Frey on 11-18-2024 Protein [Mass/Vol] Protein [Mass/volume ] in Serum or Plasma Low 6.4-8.9 [facility] RBC Auto (Bld) [#/Vol]Ordere d By: Chaz Frey on 11-18-2024 RBC (Bld) [#/Vol] Erythrocytes [#/volu me] in Blood by Automated count 3.90-5.60 [facility] Serum or plasma albumin/glob ulin mass ratioOrdered By: Chaz Frey on 11-18-2024 Albumin/Globulin [Mass ratio] Serum or plasma albumin/globulin mass ratio [facility] Serum or plasma anion gap de terminationOrdered By: Chaz Frey on 11-18-2024 Anion gap [Moles/Vol] Serum or plasma an ion gap determination 6.0-15.0 [facility] Sodium [Moles/volume] in Ser um or PlasmaOrdered By: Chaz Frey on 11-18-2024 Sodium [Moles/Vol] Sodium [Moles/volume ] in Serum or Plasma 136-145 [facility] Troponin I High Sensitivityo n 11-18-2024 Troponin I High Sensitivity 26.6 pg/mL High 0.0-20.0 [facility] Comment on above: Result Comment: PERF ORMED BY: [facility] [address] [id number] PATHOLOGIST BRIQUETTE OPERATOR VÍCTOR LUCERO M.D. Performed By: #### C BC, PT, PTT, CK, HS TROP, CMP, PRL #### [facility] [address] Troponin I.cardiac [Mass/vol ume] in Serum or Plasma by Detection limit <= 0.01 ng/Ordered By: Chaz Frey on 11-18-2024 Troponin I.cardiac DL <= 0.01 ng/mL [Mass/Vol] Troponin I.cardiac [Mass/volume] in Serum or Plasma by Detection limit <= 0.01 ng/ High 0.0-20.0 [facility] Urea nitrogen [Mass/volume] in Serum or PlasmaOrdered By: Chaz Frey on 11-18-2024 Urea nitrogen [Mass/Vol] Urea nitrogen [Mass/volume] in Serum or Plasma 7-25 [facility] WBC Auto (Bld) [#/Vol]Ordere d By: Chaz Frey on 11-18-2024 WBC (Bld) [#/Vol] Leukocytes [#/volume ] in Blood by Automated count 4.1-10.5 [facility] Amphetamine Screen Ql (U)Ord ered By: Ragini Carmona on 11-17-2024 Amphetamines Ql (U) Amphetamines screen High Negativ e [facility] Amphetamine cutoff [Mass/vol ume] in Urine for Confirmatory methodOrdered By: Chaz Frey on 11-17-2024 Amphetamine cutoff Confirm (U) [Mass/Vol] Amphetamine cutoff [Mass/volume] in Urine for Confirmatory method [id number] [facility] Amphetamine+Methamphetamine [Presence] in UrineOrdered By: Chaz Frey on 11-17-2024 Amphetamine+Methamphe tamine Ql (U) Amphetamine+Methamphetami ne [Presence] in Urine Abnormal [id number] [facility] Comment on above: Amphetamine test inc ludes Amphetamine and Methamphetamine. Amphetamines [Presence] in U rineOrdered By: Chaz Frey on 11-17-2024 Amphetamines Ql (U) Amphetamines [Presen ce] in Urine Abnormal . [facility] Amphetamines [Presence] in U rine by Screen methodOrdered By: Chaz Frey on 11-17-2024 Amphetamines Screen Ql (U) Amphetamines [Presence] in Urine by Screen method [id number] [facility] Comment on above: Amphetamine test inc ludes Amphetamine and Methamphetamine. Appearance of UrineOrdered B y: Ragini Carmona on 11-17-2024 Appearance (U) Urine appearance [facility] Bacteria [Presence] in Urine by AutomatedOrdered By: Ragini Carmona on 11-17-2024 Bacteria Auto Ql (U) Bacteria [Presence] in Urine by Automated None Seen [facility] Barbiturates [Presence] in U rine by Screen methodOrdered By: Ragini Carmona on 11-17-2024 Barbiturates Screen Ql (U) Barbiturates [Presence] in Urine by Screen method [id number] [facility] Benzodiazepines Screen Ql (U )Ordered By: Ragini Carmona on 11-17-2024 Benzodiazepines Ql (U) Benzodiazepines [Presence] in Urine by Screen method High Negative [facility] Benzodiazepines [Presence] i n UrineOrdered By: Chaz Frey on 11-17-2024 Benzodiazepines Ql (U) Benzodiazepines [Presence] in Urine [id number] [facility] Benzoylecgonine [Presence] i n Urine by Screen methodOrdered By: Ragini Carmona on 11-17-2024 Benzoylecgonine Screen Ql (U) Benzoylecgonine [Presence] in Urine by Screen method Negative [facility] Bilirubin Test strip Ql (U)O rdered By: Ragini Carmona on 11-17-2024 Bilirubin Ql (U) Bilirubin.total [Presence] in Urine by Test strip Negative [facility] CT angio neckon 11-17-2024 CT angio neck [facility] [place] [address] CT Scan Report Signed Patient: Aaron Olivarez MR#: [id number] 00 : 1960 Acct:[id number] Age/Sex: 64 / M ADM Date: 11/17/24 Loc: ER Room: Type: PRE ER Attending Dr: Copies to: Ragini Carmona DO Ordering Provider: Ragini M Tupa, DO Date of Service: 11/17/24 CT/CT angio head: cva ([id number]) CT/CT angio neck: cva CT angio head, CT angio neck 11/17/2024 8:47 AM SIGNS AND SYMPTOMS: Fall, left-sided deficits CONTRAST: 90 mL of intravenous [id number] TECHNIQUE: Multi-detector CT angiography axial slices of the head and neck were obtained during intravenous administration of IV contrast material. Sagittal, coronal, and 3-D reconstructions were performed and viewed on a separate workstation. CT was performed with one or more of the following dose reduction techniques: Automated exposure control, adjustment of the mA and/or kV according to patient size, or use of iterative reconstruction technique. Stenoses were measured using the NASCET criteria. COMPARISON: Noncontrast CT from the same date. FINDINGS: CTA HEAD: The superior cerebellar arteries, posterior inferior cerebellar arteries, and the basilar artery are within normal limits. The posterior cerebral arteries are unremarkable. Atherosclerotic changes are noted in the intracranial segments of the internal carotid arteries contributing to mild to moderate multifocal narrowing greatest in the supraclinoid ophthalmic segments bilaterally.. There are normal anterior and middle cerebral arteries. Anterior communicating artery is patent. Posterior communicating arteries are present. The deep venous system and dural venous systems appear to be patent. No bony abnormalities are appreciated. CTA NECK: There is a normal three-vessel arch. The subclavian arteries are within normal limits. The vertebral arteries arise from the subclavian arteries and are normal in course and caliber up to the skull base. The common and internal carotid arteries are normal in caliber. Calcified plaque is noted without significant stenosis along the carotid bifurcations and proximal internal carotid arteries bilaterally. Visualized lung parenchyma is clear. Degenerative changes are noted in the cervical spine. No acute bony abnormalities are identified. The paraspinous soft tissues are within normal limits. CT/CT angio head IMPRESSION: No evidence of focal stenosis, aneurysmal dilatation, dissection or occlusion. No evidence of acute traumatic injury. The cervical spine and upper thoracic spine are grossly intact. Impression dictated by: Dung Chakraborty M.D.11/17/2024 8:59 AM Dictation Location: [place] [address] Transcribed By: [facility] 11/17/24 0859 Dictated By: Dung Chakraborty II, MD 11/17/24 0852 Signed By: 11/17/24 0859 Normal [facility] CT head stroke alert wo cono n 11-17-2024 CT head stroke alert wo con [facility] [place] [address] [place] [address] CT Scan Report Signed Patient: Aaron Olivarez MR#: [id number] 00 : 1960 Acct:[id number] Age/Sex: 64 / M ADM Date: 11/17/24 Loc: ER Room: Type: PRE ER Attending Dr: Copies to: Ragini Carmona DO Ordering Provider: Ragini Carmona DO Date of Service: 11/17/24 CT/CT head stroke alert wo con: stroke CT head stroke alert wo con 11/17/2024 8:25 AM SIGNS AND SYMPTOMS: Fall, weakness TECHNIQUE:Multi-detector CT axial slices of the brain were obtained without IV contrast. CT was performed with one or more of the following dose reduction techniques: Automated exposure control, adjustment of the mA and/or kV according to patient size, or use of iterative reconstruction technique. COMPARISON: 05/03/2024 FINDINGS: There is no shift of the midline structures, acute intracranial bleeding, mass effects, or evidence of acute ischemia. Periventricular and subcortical white matter hypoattenuation is noted. Atherosclerotic changes are noted in the intrarenal segments of the internal carotid arteries and V4 segments of the vertebral arteries. Cortically-based gliosis is noted in the left frontal lobe similar to the prior exam consistent with a remote infarct or traumatic injury. The ventricular system is normal in size. The brainstem and the cerebellum are unremarkable. The visualized intraorbital contents, the visualized paranasal sinuses, and the infratemporal soft tissues show no acute abnormality. The osseous structures in the skull base and the calvarium show no abnormality. There is a small frontal scalp hematoma. CT/CT head stroke alert wo con IMPRESSION: No acute intracranial pathology. Chronic changes are noted as above. Findings were discussed with Dr. yanes at 8:41 AM on 11/17/2024 Impression dictated by: Dung Chakraborty M.D.11/17/2024 8:43 AM Dictation Location: [place] [address] Transcribed By: [facility] 11/17/24 0843 Dictated By: Dung Chakraborty II, MD 11/17/24 0837 Signed By: 11/17/24 0843 Normal [facility] Cannabinoids [Mass/volume] i n Urine by Confirmatory methodOrdered By: Chaz Frey on 11-17-2024 Cannabinoids Confirm (U) [Mass/Vol] Cannabinoids [Mass/volume] in Urine by Confirmatory method Cutoff=50 [facility] Cannabinoids [Presence] in U rine by Screen methodOrdered By: Ragini Carmona on 11-17-2024 Cannabinoids Screen Ql (U) Cannabinoids [Presence] in Urine by Screen method Cutoff=50 [facility] Comment on above: These are unconfirme d results and should not be used for legal purposes. Drug Cut-Off Concentration: AMPH 1000 ng/mL BHASKAR 200 ng/mL RIKKI 200 ng/mL COCM 300 ng/mL OP 300 ng/mL PCP 25 ng/mL THC 20 ng/mL Color Auto (U)Ordered By: Noe Carmona on 11-17-2024 Color (U) Color of Urine by Auto Yellow [facility] Complete Blood Count Auto Di ffon 11-17-2024 Basophils (Bld) [#/Vol] 0.0 10*3/uL Normal 0.0-0.2 [facility] Comment on above: Result Comment: PERF ORMED BY: [place] [address] PATHOLOGIST BRIQUETTE OPERATOR VÍCTOR LUCERO M.D. Performed By: #### C BC, PT, PTT, CK, HS TROP, CMP, PRL #### [address] Basophils/100 WBC (Bld) 0.4 % Normal . [facility] Comment on above: Performed By: #### C BC, PT, PTT, CK, HS TROP, CMP, PRL #### [address] Eosinophils (Bld) [#/Vol] 0.0 10*3/uL Normal 0.0-0.45 [facility] Comment on above: Performed By: #### C BC, PT, PTT, CK, HS TROP, CMP, PRL #### [address] Eosinophils/100 WBC (Bld) 0.1 % Normal . [facility] Comment on above: Performed By: #### C BC, PT, PTT, CK, HS TROP, CMP, PRL #### [address] Erythrocyte distribution width (RBC) [Ratio] 13.6 % Normal 12.0-14.8 [facility] Comment on above: Performed By: #### C BC, PT, PTT, CK, HS TROP, CMP, PRL #### [address] Hematocrit (Bld) [Volume fraction] 46.4 % Normal 38.8-50.0 [facility] Comment on above: Performed By: #### C BC, PT, PTT, CK, HS TROP, CMP, PRL #### [address] Hemoglobin (Bld) [Mass/Vol] 15.6 g/dL Normal 13.0-17.0 [facility] Comment on above: Performed By: #### C BC, PT, PTT, CK, HS TROP, CMP, PRL #### [address] Lymphocytes (Bld) [#/Vol] 0.4 10*3/uL Low 1.00-4.8 [facility] Comment on above: Performed By: #### C BC, PT, PTT, CK, HS TROP, CMP, PRL #### [address] Lymphocytes/100 WBC (Bld) 4.4 % Normal . [facility] Comment on above: Performed By: #### C BC, PT, PTT, CK, HS TROP, CMP, PRL #### [address] MCH (RBC) [Entitic mass] 28.8 pg Normal 27.5-35.2 [facility] Comment on above: Performed By: #### C BC, PT, PTT, CK, HS TROP, CMP, PRL #### [address] MCV (RBC) [Entitic vol] 85.6 fL Normal 83.5-101 [facility] Comment on above: Performed By: #### C BC, PT, PTT, CK, HS TROP, CMP, PRL #### [address] Mean Corpuscular HGB Conc 33.6 g/dL Normal 32.5-35.6 [facility] Comment on above: Performed By: #### C BC, PT, PTT, CK, HS TROP, CMP, PRL #### [address] Monocytes (Bld) [#/Vol] 0.3 10*3/uL Normal 0.0-0.8 [facility] Comment on above: Performed By: #### C BC, PT, PTT, CK, HS TROP, CMP, PRL #### [address] Monocytes/100 WBC (Bld) 15.39 % Normal 0.00-20.00 [facility] Comment on above: Performed By: #### C BC, PT, PTT, CK, HS TROP, CMP, PRL #### [address] Monocytes/100 WBC (Bld) 3.3 % Normal . [facility] Comment on above: Performed By: #### C BC, PT, PTT, CK, HS TROP, CMP, PRL #### [place] [address] [place] Neutrophils (Bld) [#/Vol] 9.2 10*3/uL High 1.8-7.7 [facility] Comment on above: Performed By: #### C BC, PT, PTT, CK, HS TROP, CMP, PRL #### [address] Neutrophils/100 WBC (Bld) 91.8 % Normal . [facility] Comment on above: Performed By: #### C BC, PT, PTT, CK, HS TROP, CMP, PRL #### [address] NRBC% 0.1 /100{WBC} Normal 0-0.5 [facility] Comment on above: Performed By: #### C BC, PT, PTT, CK, HS TROP, CMP, PRL #### [address] Platelet mean volume (Bld) [Entitic vol] 7.3 fL Normal 6.6-10.1 [facility] Comment on above: Performed By: #### C BC, PT, PTT, CK, HS TROP, CMP, PRL #### [address] Platelets (Bld) [#/Vol] 280 10*3/uL Normal 150-450 [facility] Comment on above: Performed By: #### C BC, PT, PTT, CK, HS TROP, CMP, PRL #### [address] RBC (Bld) [#/Vol] 5.42 10*6/uL Normal 3.90-5.60 [facility] Comment on above: Performed By: #### C BC, PT, PTT, CK, HS TROP, CMP, PRL #### [address] WBC (Bld) [#/Vol] 10.1 10*3/uL Normal 4.1-10.5 [facility] Comment on above: Performed By: #### C BC, PT, PTT, CK, HS TROP, CMP, PRL #### [address] Comprehensive Metabolic Pane wilner 11-17-2024 Albumin [Mass/Vol] 4.2 g/dL Normal 3.5-5.7 [facility] Comment on above: Performed By: #### C BC, PT, PTT, CK, HS TROP, CMP, PRL #### [address] Albumin/Globulin [Mass ratio] 1.7 {ratio} Normal [facility] Comment on above: Performed By: #### C BC, PT, PTT, CK, HS TROP, CMP, PRL #### [address] ALP [Catalytic activity/Vol] 95 U/L Normal 34-104 [facility] Comment on above: Performed By: #### C BC, PT, PTT, CK, HS TROP, CMP, PRL #### [address] ALT [Catalytic activity/Vol] 12 U/L Normal 7-52 [facility] Comment on above: Performed By: #### C BC, PT, PTT, CK, HS TROP, CMP, PRL #### [address] Anion gap [Moles/Vol] 13.0 mmol/L Normal 6.0-15.0 [facility] Comment on above: Performed By: #### C BC, PT, PTT, CK, HS TROP, CMP, PRL #### [address] AST [Catalytic activity/Vol] 24 U/L Normal 13-39 [facility] Comment on above: Performed By: #### C BC, PT, PTT, CK, HS TROP, CMP, PRL #### [address] Bilirubin [Mass/Vol] 0.6 mg/dL Normal 0.3-1.0 [facility] Comment on above: Performed By: #### C BC, PT, PTT, CK, HS TROP, CMP, PRL #### [address] Calcium [Mass/Vol] 9.1 mg/dL Normal 8.6-10.3 [facility] Comment on above: Performed By: #### C BC, PT, PTT, CK, HS TROP, CMP, PRL #### [address] Chloride [Moles/Vol] 104 mmol/L Normal 98-107 [facility] Comment on above: Performed By: #### C BC, PT, PTT, CK, HS TROP, CMP, PRL #### [address] CO2 [Moles/Vol] 29.2 mmol/L Normal 21.0-31.0 [facility] Comment on above: Performed By: #### C BC, PT, PTT, CK, HS TROP, CMP, PRL #### [address] Creatinine [Mass/Vol] 1.27 mg/dL Normal 0.70-1.30 [facility] Comment on above: Performed By: #### C BC, PT, PTT, CK, HS TROP, CMP, PRL #### [address] GFR/1.73 sq M.predicted MDRD (S/P/Bld) [Vol rate/Area] mL/min/{1.73_m2} Normal [facility] Comment on above: Performed By: #### C BC, PT, PTT, CK, HS TROP, CMP, PRL #### [address] Globulin (S) [Mass/Vol] 2.5 g/dL Normal [facility] Comment on above: Performed By: #### C BC, PT, PTT, CK, HS TROP, CMP, PRL #### [address] Glucose [Mass/Vol] 163 mg/dL High 70-100 [facility] Comment on above: Result Comment: [facility] Glucose Reference Range is dependent on time and content of last meal. Glucose of more than 200 mg/dL in a nonstressed, ambulatory subject supports the diagnosis of Diabetes Mellitus. ADA recommended reference range Performed By: #### C BC, PT, PTT, CK, HS TROP, CMP, PRL #### [address] Potassium [Moles/Vol] 4.2 mmol/L Normal 3.5-5.1 [facility] Comment on above: Performed By: #### C BC, PT, PTT, CK, HS TROP, CMP, PRL #### [address] Protein [Mass/Vol] 6.7 g/dL Normal 6.4-8.9 [facility] Comment on above: Performed By: #### C BC, PT, PTT, CK, HS TROP, CMP, PRL #### [address] Sodium [Moles/Vol] 142 mmol/L Normal 136-145 [facility] Comment on above: Performed By: #### C BC, PT, PTT, CK, HS TROP, CMP, PRL #### [address] Urea nitrogen [Mass/Vol] 16 mg/dL Normal 7-25 [facility] Comment on above: Performed By: #### C BC, PT, PTT, CK, HS TROP, CMP, PRL #### [address] Creatine Kinaseon 11-17-2024 CK [Catalytic activity/Vol] 134 U/L Normal 30-223 [facility] Comment on above: Performed By: #### C BC, PT, PTT, CK, HS TROP, CMP, PRL #### [address] Creatine kinase [Enzymatic a ctivity/volume] in Serum or PlasmaOrdered By: Ragini Carmona on 11-17-2024 CK [Catalytic activity/Vol] Creatine kinase [Enzymatic activity/volume] in Serum or Plasma 30- [facility] Dipstick and Microscopicon 0 11-17-2024 Appearance (U) Clear Normal Clear [facility] Comment on above: Order Comment: Name Collection Type:: Clean-Voided Midstream Performed By: #### C BC, PT, PTT, CK, HS TROP, CMP, PRL #### [address] Bacteria,Urine None Seen Normal None Seen [facility] Comment on above: Order Comment: Name Collection Type:: Clean-Voided Midstream Performed By: #### C BC, PT, PTT, CK, HS TROP, CMP, PRL #### [facility] [address] [place] [address] [place] Bilirubin,Urine Negative Normal Negative [facility] Comment on above: Order Comment: Name Collection Type:: Clean-Voided Midstream Performed By: #### C BC, PT, PTT, CK, HS TROP, CMP, PRL #### [facility] [address] Color (U) Yellow Normal Yellow [facility] Comment on above: Order Comment: Name Collection Type:: Clean-Voided Midstream Performed By: #### C BC, PT, PTT, CK, HS TROP, CMP, PRL #### [address] Glucose Ql (U) 70 mg/dL High Normal [facility] Comment on above: Order Comment: Name Collection Type:: Clean-Voided Midstream Performed By: #### C BC, PT, PTT, CK, HS TROP, CMP, PRL #### [address] Hyaline Casts,Urine None Normal 0-8 [facility] Comment on above: Order Comment: Name Collection Type:: Clean-Voided Midstream Performed By: #### C BC, PT, PTT, CK, HS TROP, CMP, PRL #### [place] [address] [place] Ketones Ql (U) Negative Normal Negative [facility] Comment on above: Order Comment: Name Collection Type:: Clean-Voided Midstream Performed By: #### C BC, PT, PTT, CK, HS TROP, CMP, PRL #### [place] [address] [place] Leukocyte esterase Test strip Ql (U) Negative Normal Negative [facility] Comment on above: Order Comment: Name Collection Type:: Clean-Voided Midstream Performed By: #### C BC, PT, PTT, CK, HS TROP, CMP, PRL #### [place] [address] [place] Mucus,Urine Rare Normal [facility] Comment on above: Order Comment: Name Collection Type:: Clean-Voided Midstream Result Comment: PERF ORMED BY: [place] [address] PATHOLOGIST BRIQUETTE OPERATOR VÍCTOR LUCERO M.D. Performed By: #### C BC, PT, PTT, CK, HS TROP, CMP, PRL #### [address] Nitrite,Urine Negative Normal Negative [facility] Comment on above: Order Comment: Name Collection Type:: Clean-Voided Midstream Performed By: #### C BC, PT, PTT, CK, HS TROP, CMP, PRL #### [address] Occult Blood,Urine Negative Normal Negative [facility] Comment on above: Order Comment: Name Collection Type:: Clean-Voided Midstream Performed By: #### C BC, PT, PTT, CK, HS TROP, CMP, PRL #### [address] pH (U) 6.5 [pH] Normal 5.0-9.0 [facility] Comment on above: Order Comment: Name Collection Type:: Clean-Voided Midstream Performed By: #### C BC, PT, PTT, CK, HS TROP, CMP, PRL #### [address] Protein (U) [Mass/Vol] 70 mg/dL High Negative [facility] Comment on above: Order Comment: Name Collection Type:: Clean-Voided Midstream Performed By: #### C BC, PT, PTT, CK, HS TROP, CMP, PRL #### [address] RBC,Urine 3 [HPF] Normal 0-4 [facility] Comment on above: Order Comment: Name Collection Type:: Clean-Voided Midstream Performed By: #### C BC, PT, PTT, CK, HS TROP, CMP, PRL #### [address] Specificy [place],Urine >1.050 High 1.001-1.030 [facility] Comment on above: Order Comment: Name Collection Type:: Clean-Voided Midstream Result Comment: Rech ecked by refractometer Performed By: #### C BC, PT, PTT, CK, HS TROP, CMP, PRL #### [address] Squamous Epithelial Cell,Urine 1 [HPF] Normal 0-2 [facility] Comment on above: Order Comment: Name Collection Type:: Clean-Voided Midstream Performed By: #### C BC, PT, PTT, CK, HS TROP, CMP, PRL #### [address] Urobilinogen,Urine Normal Normal Normal [facility] Comment on above: Order Comment: Name Collection Type:: Clean-Voided Midstream Performed By: #### C BC, PT, PTT, CK, HS TROP, CMP, PRL #### [address] WBC,Urine 1 [HPF] Normal 0-4 [facility] Comment on above: Order Comment: Name Collection Type:: Clean-Voided Midstream Performed By: #### C BC, PT, PTT, CK, HS TROP, CMP, PRL #### [address] Drug Screen,Urineon 11-17-19 25 Amphetamine Screen,Urine Positive High Negative [facility] Comment on above: Performed By: #### C BC, PT, PTT, CK, HS TROP, CMP, PRL #### [address] Barbiturate Screen,Urine Negative Normal Negative [facility] Comment on above: Performed By: #### C BC, PT, PTT, CK, HS TROP, CMP, PRL #### [address] Benzodiazepines Screen,Urine Positive High Negative [facility] Comment on above: Performed By: #### C BC, PT, PTT, CK, HS TROP, CMP, PRL #### [address] Cannabinoid Screen,Urine Positive High Negative [facility] Comment on above: Result Comment: Thes e are unconfirmed results and should not be used for legal purposes. Drug Cut-Off Concentration: AMPH 1000 ng/mL BHASKAR 200 ng/mL RIKKI 200 ng/mL COCM 300 ng/mL OP 300 ng/mL PCP 25 ng/mL THC 20 ng/mL PERFORMED BY: [place] [address] PATHOLOGIST BRIQUETTE OPERATOR VÍCTOR LUCERO M.D. Performed By: #### C BC, PT, PTT, CK, HS TROP, CMP, PRL #### [address] Cocaine Screen,Urine Negative Normal Negative [facility] Comment on above: Performed By: #### C BC, PT, PTT, CK, HS TROP, CMP, PRL #### [address] Opiate Screen,Urine Negative Normal Negative [facility] Comment on above: Performed By: #### C BC, PT, PTT, CK, HS TROP, CMP, PRL #### [address] Phencyclidine Screen,Urine Negative Normal Negative [facility] Comment on above: Performed By: #### C BC, PT, PTT, CK, HS TROP, CMP, PRL #### [address] ECG 12 lead ECGon 11-17-2024 ECG 12 lead ECG [facility] [place] [address] [place] [address] Electrocardiograph Report Signed Patient: Aaron Olivarez MR#: [id number] 00 : 1960 Acct:[id number] Age/Sex: 64 / M ADM Date: 11/17/24 Loc: Room: [address] [place] [address] Type: ADM INOo Attending Dr: Chaz Frey MD Ordering Provider: Ragini Carmona DO Date of Service: 11/17/2404/06/825 ECG/ECG 12 lead ECG: Altered Mental Status Copies to: Test Reason : Blood Pressure : 161/92 mmHG Vent. Rate : 93 BPM Atrial Rate : 93 BPM P-R Int : 150 ms QRS Dur : 84 ms QT Int : 364 ms P-R-T Axes : 91 60 261 degrees QTcB Int : 452 ms Normal sinus rhythm Biatrial enlargement lateral st changes Abnormal ECG When compared with ECG of 03-May-2024 13:35, ST now depressed in Inferior leads Nonspecific T wave abnormality now evident in Inferior leads Inverted T waves have replaced nonspecific T wave abnormality in Lateral leads Confirmed by RAGINI CARMONA DO ([id number]) on 11/17/2024 2:45:11 PM Referred By: Electronically Signed By: RAGINI CARMONA DO Transcribed By: MUS Signed By Ragini Carmona DO 1445 Normal [facility] Epithelial cells.squamous [# /area] in Urine sediment by Automated countOrdered By: Ragini Carmona on 11-17-2024 Epithelial cells.squamous Auto (Urine sed) [#/Area] Epithelial cells.squamous [#/area] in Urine sediment by Automated count 0-2 [facility] Erythrocyte Sedimentation Ra irene 11-17-2024 ESR (Bld) [Velocity] 2 mm/h Normal 0-19 [facility] Comment on above: Result Comment: PERF ORMED BY: [place] [address] PATHOLOGIST BRIQUETTE OPERATOR VÍCTOR LUCERO M.D. Performed By: #### C BC, PT, PTT, CK, HS TROP, CMP, PRL #### [facility] [address] [place] [address] Erythrocyte sedimentation ra te by Photometric methodOrdered By: Chaz Frey on 11-17-2024 ESR Photometric method (Bld) [Velocity] Erythrocyte sedimentation rate by Photometric method 0-19 [facility] Erythrocytes [#/area] in Uri ne sediment by Automated countOrdered By: Ragini Carmona on 11-17-2024 RBC Auto (Urine sed) [#/Area] Erythrocytes [#/area] in Urine sediment by Automated count 0-4 [facility] Ethanol [Mass/volume] in Ser um or PlasmaOrdered By: Ragini Carmona on 11-17-2024 Ethanol [Mass/Vol] Ethanol [Mass/volume ] in Serum or Plasma [facility] Comment on above: Test not performed Ethyl Alcohol Profileon Ethanol [Mass/Vol] mg/dL Normal [facility] Comment on above: Performed By: #### C BC, PT, PTT, CK, HS TROP, CMP, PRL #### [facility] [address] [place] [address] [place] Percent Ethanol Not performed Normal [facility] Comment on above: Result Comment: PERF ORMED BY: [facility] [address] [place] [address] PATHOLOGIST BRIQUETTE OPERATOR VÍCTOR LUCERO M.D. Performed By: #### C BC, PT, PTT, CK, HS TROP, CMP, PRL #### [facility] [address] [place] [address] [facility] Glucose Glucometer (BldC) [M ass/Vol]Ordered By: Ragini Carmona on 11-17-2024 Glucose [Mass/Vol] Capillary blood gluc ose measurement by glucometer (mass/volume) [facility] Comment on above: Random Glucose Refer ence Range is dependent on time and content of last meal. Glucose of more than 200 mg/dL in a nonstressed, ambulatory subject supports the diagnosis of Diabetes Mellitus. Glucose Poct Glucometerson 0 11-17-2024 Glucose [Mass/Vol] 175 mg/dL Normal [facility] Comment on above: Result Comment: [place] Glucose Reference Range is dependent on time and content of last meal. Glucose of more than 200 mg/dL in a nonstressed, ambulatory subject supports the diagnosis of Diabetes Mellitus. PERFORMED BY: [facility] [address] [facility] [place] [address] PATHOLOGIST BRIQUETTE OPERATOR VÍCTOR LUCERO M.D. Performed By: #### C BC, PT, PTT, CK, HS TROP, CMP, PRL #### [facility] [address] [place] [address] [facility] Glucose [Mass/volume] in Uri ne by Test stripOrdered By: Ragini Carmona on 11-17-2024 Glucose Test strip (U) [Mass/Vol] Glucose [Mass/volume] in Urine by Test strip High Normal [facility] Hemoglobin Test strip Ql (U) Ordered By: Ragini Carmona on 11-17-2024 Hemoglobin Ql (U) Hemoglobin [Presence ] in Urine by Test strip Negative [facility] Hyaline casts [#/area] in Ur ine sediment by Automated countOrdered By: Ragini Carmona on 11-17-2024 Hyaline casts Auto (Urine sed) [#/Area] Hyaline casts [#/area] in Urine sediment by Automated count 0-8 [facility] INR in Platelet poor plasma by Coagulation assayOrdered By: Ragini Carmona on 11-17-2024 INR Coag (PPP) [Relative time] INR in Platelet poor plasma by Coagulation assay [facility] Comment on above: INR Therapeutic Rang e A) Pre- and Peroperative OAT started two weeks before surgery. NOT HIP SURGERY: 1.5 - 2.5 HIP SURGERY: 2 - 3B) Primary and secondary prevention of venous THROMBOSIS: 2 - 3C) Active venous thrombosis, pulmonary embolismand prevention of recurrent venous thrombosis: 2 - 3D) Prevention of arterial thromboembolismincluding patients with mechanical heart valves: 3 - 4.5 Ketones Test strip Ql (U)Ord ered By: Ragini Carmona on 11-17-2024 Ketones Ql (U) Ketones [Presence] i n Urine by Test strip Negative [facility] Leukocyte esterase [Presence ] in Urine by Test stripOrdered By: Ragini Carmona on 11-17-2024 Leukocyte esterase Test strip Ql (U) Leukocyte esterase [Presence] in Urine by Test strip Negative [facility] Leukocytes [#/area] in Urine sediment by Automated countOrdered By: Ragini Carmona on 11-17-2024 WBC Auto (Urine sed) [#/Area] Leukocytes [#/area] in Urine sediment by Automated count 0-4 [facility] Magnesiumon 11-17-2024 Magnesium [Mass/Vol] 1.9 mg/dL Normal 1.9-2.7 [facility] Comment on above: Order Comment: Comme nt add on Result Comment: PERF ORMED BY: [facility] [address] [place] [address] PATHOLOGIST BRIQUETTE OPERATOR VÍCTOR LUCERO M.D. Performed By: #### C BC, PT, PTT, CK, HS TROP, CMP, PRL #### [facility] [address] Magnesium [Mass/volume] in S andrei or PlasmaOrdered By: Chaz Frey on 11-17-2024 Magnesium [Mass/Vol] Magnesium [Mass/vol ume] in Serum or Plasma 1.9-2.7 [facility] Methamphetamine [Presence] i n UrineOrdered By: Chaz Frey on 11-17-2024 Methamphetamine Ql (U) Methamphetamine [Presence] in Urine Abnormal . [facility] Methamphetamine cutoff [Mass /volume] in Urine for Confirmatory methodOrdered By: Chaz Frey on 11-17-2024 Methamphetamine cutoff Confirm (U) [Mass/Vol] Methamphetamine cutoff [Mass/volume] in Urine for Confirmatory method [id number] [facility] Monocyte distribution width [Entitic volume] in Blood by AutomatedOrdered By: Ragini Carmona on 11-17-2024 Monocyte distribution width Auto (Bld) [Entitic vol] Monocyte distribution width [Entitic volume] in Blood by Automated 0.00-20.00 [facility] Mucus [Presence] in Urine by AutomatedOrdered By: Ragini Carmona on 11-17-2024 Mucus Auto Ql (U) Mucus [Presence] in Urine by Automated [facility] Nitrite Test strip Ql (U)Ord ered By: Ragini Carmona on 11-17-2024 Nitrite Ql (U) Nitrite [Presence] i n Urine by Test strip Negative [facility] Opiates [Presence] in UrineO rdered By: Chaz Frey on 11-17-2024 Opiates Ql (U) Opiates [Presence] i n Urine Gjgufj=327 [facility] Comment on above: Opiate test includes Codeine and Morphine only. Opiates [Presence] in Urine by Screen methodOrdered By: Ragini Carmona on 11-17-2024 Opiates Screen Ql (U) Opiates [Presence] in Urine by Screen method Negative [facility] Partial Thromboplastin Timeo n 11-17-2024 aPTT Coag (Bld) [Time] 22.3 s Low 25.1-36.5 [facility] Comment on above: Result Comment: A he matocrit value greater than 55% may lead to inaccurate results in coagulation testing. Patients having hematocrit values >55% require a special collection tube for coagulation studies. Please contact the laboratory at [phone] for redraw instructions. PERFORMED BY: [place] [id number] PATHOLOGIST BRIQUETTE OPERATOR VÍCTOR LUCERO M.D. Performed By: #### C BC, PT, PTT, CK, HS TROP, CMP, PRL #### [address] [address] [facility] Phencyclidine Screen Ql (U)O rdered By: Ragini Carmona on 11-17-2024 Phencyclidine Ql (U) Phencyclidine [Pres ence] in Urine by Screen method Negative [facility] Phencyclidine [Presence] in UrineOrdered By: Chaz Frey on 11-17-2024 Phencyclidine Ql (U) Phencyclidine [Pres ence] in Urine Cutoff=25 [facility] Comment on above: Performed at: [facility] [id number] [place], [place] [id number] Director: Adenike Panchal PhD, Phone: [phone] Prolactinon 11-17-2024 Prolactin 14.22 ng/mL High 2.64-13.13 [facility] Comment on above: Result Comment: PERF ORMED BY: [place] [address] PATHOLOGIST BRIQUETTE OPERATOR VÍCTOR LUCERO M.D. Performed By: #### C BC, PT, PTT, CK, HS TROP, CMP, PRL #### [place] [id number] [facility] Protein Test strip (U) [Mass /Vol]Ordered By: Ragini Carmona on 11-17-2024 Protein (U) [Mass/Vol] Protein [Mass/volume] in Urine by Test strip High Negative [facility] Prothrombin Time INRon 11-17 INR Coag (PPP) [Relative time] 1.0 {INR} Normal [facility] Comment on above: Result Comment: INR Therapeutic Range A) Pre- and Peroperative OAT started two weeks before surgery. NOT HIP SURGERY: 1.5 - 2.5 HIP SURGERY: 2 - 3 B) Primary and secondary prevention of venous THROMBOSIS: 2 - 3 C) Active venous thrombosis, pulmonary embolism and prevention of recurrent venous thrombosis: 2 - 3 D) Prevention of arterial thromboembolism including patients with mechanical heart valves: 3 - 4.5 Performed By: #### C BC, PT, PTT, CK, HS TROP, CMP, PRL #### [facility] [address] PT Coag (PPP) [Time] 11.9 s Normal 9.0-12.9 [facility] Comment on above: Result Comment: A he matocrit value greater than 55% may lead to inaccurate results in coagulation testing. Patients having hematocrit values >55% require a special collection tube for coagulation studies. Please contact the laboratory at [phone] for redraw instructions. Performed By: #### C BC, PT, PTT, CK, HS TROP, CMP, PRL #### [facility] [address] Prothrombin time (PT)Ordered By: Ragini Carmona on 11-17-2024 PT Coag (PPP) [Time] Prothrombin time (PT) 9.0- 12.9 [facility] Comment on above: A hematocrit value g reater than 55% may lead to inaccurate results in coagulation testing. Patients having hematocrit values >55% require a special collection tube for coagulation studies. Please contact the laboratory at [phone] for redraw instructions. Specific gravity of Urine by RefractometryOrdered By: Ragini Carmona on 11-17-2024 Specific gravity Refractometry (U) [Rel density] Specific gravity of Urine by Refractometry High 1.001-1.030 [facility] Comment on above: Rechecked by refract ometer Troponin I High Sensitivityo n 11-17-2024 Troponin I High Sensitivity 36.7 pg/mL High 0.0-20.0 [facility] Comment on above: Result Comment: PERF ORMED BY: [place] [address] PATHOLOGIST BRIQUETTE OPERATOR VÍCTOR LUCERO M.D. Performed By: #### C BC, PT, PTT, CK, HS TROP, CMP, PRL #### [address] Troponin I High Sensitivity 21.1 pg/mL High 0.0-20.0 [facility] Comment on above: Result Comment: PERF ORMED BY: [place] [address] PATHOLOGIST BRIQUETTE OPERATOR VÍCTOR LUCERO M.D. Performed By: #### C BC, PT, PTT, CK, HS TROP, CMP, PRL #### [address] Urine Drug Screen w/Confirmo n 11-17-2024 Amphetamines GC/MS Confirm, Ur 527 ng/mL Normal Ctyhqq=656 [facility] Comment on above: Performed By: #### C BC, PT, PTT, CK, HS TROP, CMP, PRL #### [address] Amphetamines, Ur See Final Results Normal Dhatzx=7791 [facility] Comment on above: Result Comment: Amph etamine test includes Amphetamine and Methamphetamine. Performed By: #### C BC, PT, PTT, CK, HS TROP, CMP, PRL #### [address] Amphetamines, Ur Positive Critically abnormal . [facility] Comment on above: Result Comment: Amph etamine test includes Amphetamine and Methamphetamine. Performed By: #### C BC, PT, PTT, CK, HS TROP, CMP, PRL #### [address] Barbiturate, Ur Negative Normal Riiynv=725 [facility] Comment on above: Performed By: #### C BC, PT, PTT, CK, HS TROP, CMP, PRL #### [address] Benzodiazepines, Ur See Final Results Normal Cutoff=30 0 [facility] Comment on above: Performed By: #### C BC, PT, PTT, CK, HS TROP, CMP, PRL #### [address] Benzodiazepines, Urine Negative Normal Vcyypb=012 [facility] Comment on above: Performed By: #### C BC, PT, PTT, CK, HS TROP, CMP, PRL #### [facility] [address] Cannabinoid, Ur See Final Results Normal Cutoff=50 [facility] Comment on above: Performed By: #### C BC, PT, PTT, CK, HS TROP, CMP, PRL #### [address] Cannabinoid, Urine Negative Normal Cutoff=50 [facility] Comment on above: Result Comment: PERF ORMED BY: [place] [address] PATHOLOGIST BRIQUETTE OPERATOR VÍCTOR LUCERO M.D. Performed By: #### C BC, PT, PTT, CK, HS TROP, CMP, PRL #### [address] Cocaine (Metab), Ur Negative Normal Ssyihi=919 [facility] Comment on above: Performed By: #### C BC, PT, PTT, CK, HS TROP, CMP, PRL #### [address] Methamphetamine Positive Critically abnormal . [facility] Comment on above: Performed By: #### C BC, PT, PTT, CK, HS TROP, CMP, PRL #### [address] Methamphetamines GC/MS, Ur >3000 Normal Ssrcqu=345 [facility] Comment on above: Performed By: #### C BC, PT, PTT, CK, HS TROP, CMP, PRL #### [address] Opaites, Ur Negative Normal Hoqlsc=799 [facility] Comment on above: Result Comment: Opia te test includes Codeine and Morphine only. Performed By: #### C BC, PT, PTT, CK, HS TROP, CMP, PRL #### [place] [address] [place] Phencyclidine, Ur Negative Normal Cutoff=25 [facility] Comment on above: Result Comment: Perf ormed at: [facility] [address] [place], [place] [id number] Jewel Bearing Polisher: Adenike Panchal PhD, Phone: [phone] Performed By: #### C BC, PT, PTT, CK, HS TROP, CMP, PRL #### [address] Urine cocaine metabolite det ectionOrdered By: Chaz Frey on 11-17-2024 Benzoylecgonine Ql (U) Urine cocaine metabolite detection Rkrlkl=172 [facility] Urobilinogen Test strip (U) [Mass/Vol]Ordered By: Ragini Carmona on 11-17-2024 Urobilinogen (U) [Mass/Vol] Urobilinogen [Mass/volume] in Urine by Test strip Normal [facility] Vitamin B12on 11-17-2024 Cobalamin (Vitamin B12) [Mass/Vol] 313 pg/mL Normal 180-914 [facility] Comment on above: Result Comment: PERF ORMED BY: [place] [address] PATHOLOGIST BRIQUETTE OPERATOR VÍCTOR LUCERO M.D. Performed By: #### C BC, PT, PTT, CK, HS TROP, CMP, PRL #### [address] Vitamin B12 ser/plasOrdered By: Chaz Frey on 11-17-2024 Cobalamin (Vitamin B12) [Mass/Vol] Vitamin B12 ser/plas 180-914 [facility] X-ray reportOrdered By: Dung Chakraborty on 11-17-2024 Study report [facility] [place] [address] [place] [address] XRay Report Signed Patient: Aaron Olivarez MR#: [id number] : 1960 Acct:[id number] Age/Sex: 64 / M ADM Date: 5 Loc: Room: [address] [place] [address] Type: ADM INOo Attending Dr: Chaz Frey MD Copies to: Chaz Frey MD Ordering Provider: Chaz Frey MD Date of Service: 11/17/24 XR/XR chest 1V portable: Cough XR chest 1V portable 11/17/2024 12:58 PM SIGNS AND SYMPTOMS: Cough, fall PROTOCOL: Frontal radiographs of the chest COMPARISON: 05/03/2024 FINDINGS: The trachea is midline. The heart and mediastinal structures are within normal limits. The lung parenchyma is clear. The bony thorax is intact. Remote left-sided rib fractures are noted. XR/XR chest 1V portable IMPRESSION: No acute cardiopulmonary pathology. Impression dictated by: Dung Chakraborty M.D.11/17/2024 1:26 PM Dictation Location: [place] [address] Transcribed By: [facility] 11/17/24 1326 Dictated By: Dung Chakraborty II, MD 11/17/24 1326 Signed By: 11/17/24 1326 [facility] Work Phone: XR chest 1V portableon 11-17 XR chest 1V portable [facility] [place] [address] XRay Report Signed Patient: Aaron Olivarez MR#: [id number] 00 : 1960 Acct:[id number] Age/Sex: 64 / M ADM Date: 11/17/24 Loc: Room: [address] [place] [address] Type: ADM INOo Attending Dr: Chaz Frey MD Copies to: Chaz Frey MD Ordering Provider: Chaz Frey MD Date of Service: 11/17/24 XR/XR chest 1V portable: Cough XR chest 1V portable 11/17/2024 12:58 PM SIGNS AND SYMPTOMS: Cough, fall PROTOCOL: Frontal radiographs of the chest COMPARISON: 05/03/2024 FINDINGS: The trachea is midline. The heart and mediastinal structures are within normal limits. The lung parenchyma is clear. The bony thorax is intact. Remote left-sided rib fractures are noted. XR/XR chest 1V portable IMPRESSION: No acute cardiopulmonary pathology. Impression dictated by: Dung Chakraborty M.D.11/17/2024 1:26 PM Dictation Location: [place] [address] Transcribed By: YNES 11/17/24 1325 Dictated By: Dung Chakraborty II, MD 11/17/241325 Signed By: 11/17/24 1326 Normal [facility] aPTT in Platelet poor plasma by Coagulation assayOrdered By: Ragini Carmona on 11-17-2024 aPTT Coag (PPP) [Time] Activated partial thromboplastin time (aPTT) in platelet poor plasma by coagulation a Low 25.1-36.5 [facility] Comment on above: A hematocrit value g reater than 55% may lead to inaccurate results in coagulation testing. Patients having hematocrit values >55% require a special collection tube for coagulation studies. Please contact the laboratory at [phone] for redraw instructions. pH Test strip (U)Ordered By: Ragini Carmona on 11-17-2024 pH (U) pH of Urine by Test strip 5.0-9.0 [facility] CBC with Diffon 07-15-2024 Abs. Basophil 0.04 k/uL Normal 0.00-0.20 [facility] Comment on above: Performed By: #### C DP, CMPX, MG #### [facility] [address] [place] [address] Jewel Bearing Polisher: Dario Almanza MD Abs.Imm.Granulocyte <0.03 Normal 0.00-0.30 [facility] Comment on above: Performed By: #### C DP, CMPX, MG #### [facility] [address] [place] [address] Jewel Bearing Polisher: Dario Almanza MD Abs.Neutrophil (Seg) 3.52 k/uL Normal 1.50-8.10 [facility] Comment on above: Performed By: #### C DP, CMPX, MG #### [facility] [address] [place] [address] Jewel Bearing Polisher: Dario Almanza MD Basophils/100 WBC (Bld) 1 % Normal 0-2 [facility] Comment on above: Performed By: #### C DP, CMPX, MG #### [facility] [address] [place] [address] Jewel Bearing Polisher: Dario Almanza MD Eosinophils (Bld) [#/Vol] 0.03 10*3/uL Normal 0.00-0.44 [facility] Comment on above: Performed By: #### C DP, CMPX, MG #### [facility] [address] [place] [address] Jewel Bearing Polisher: Dario Almanza MD Eosinophils/100 WBC (Bld) 1 % Normal 1-4 [facility] Comment on above: Performed By: #### C DP, CMPX, MG #### [facility] [address] [place] [address] Jewel Bearing Polisher: Dario Almanza MD Erythrocyte distribution width (RBC) [Ratio] 13.1 % Normal 11.8-14.4 [facility] Comment on above: Performed By: #### C DP, CMPX, MG #### [facility] [address] [place] [address] Jewel Bearing Polisher: Dario Almanza MD Hematocrit (Bld) [Volume fraction] 42.4 % Normal 40.7-50.3 [facility] Comment on above: Performed By: #### C DP, CMPX, MG #### [facility] [address] [place] [address] Jewel Bearing Polisher: Dario Almanza MD Hemoglobin (Bld) [Mass/Vol] 13.7 g/dL Normal 13.0-17.0 [facility] Comment on above: Performed By: #### C DP, CMPX, MG #### [facility] [address] [place] [address] Jewel Bearing Polisher: Dario Almanza MD Immature granulocytes/100 WBC (Bld) 0 % Normal 0 [facility] Comment on above: Performed By: #### C DP, CMPX, MG #### [facility] [address] [place] [address] Jewel Bearing Polisher: Dario Almanza MD Lymphocytes (Bld) [#/Vol] 1.19 10*3/uL Normal 1.10-3.70 [facility] Comment on above: Performed By: #### C DP, CMPX, MG #### [facility] [address] [place] [address] Jewel Bearing Polisher: Dario Almanza MD Lymphocytes/100 WBC (Bld) 22 % Low 24-43 [facility] Comment on above: Performed By: #### C DP, CMPX, MG #### [facility] [address] [place] [address] Jewel Bearing Polisher: Dario Almanza MD MCH (RBC) [Entitic mass] 29.6 pg Normal 25.2-33.5 [facility] Comment on above: Performed By: #### C DP, CMPX, MG #### [facility] [address] [place] [address] Jewel Bearing Polisher: Dario Almanza MD MCHC (RBC) [Mass/Vol] 32.3 g/dL Normal 28.4-34.8 [facility] Comment on above: Performed By: #### C DP, CMPX, MG #### [facility] [address] [place] [address] Jewel Bearing Polisher: Dario Almanza MD MCV (RBC) [Entitic vol] 91.6 fL Normal 82.6-102.9 [facility] Comment on above: Performed By: #### C DP, CMPX, MG #### [facility] [address] [place] [address] Jewel Bearing Polisher: Dario Almanza MD Monocytes (Bld) [#/Vol] 0.61 10*3/uL Normal 0.10-1.20 [facility] Comment on above: Performed By: #### C DP, CMPX, MG #### [address] [address] Jewel Bearing Polisher: Dario Almanza MD Monocytes/100 WBC (Bld) 11 % Normal 3-12 [facility] Comment on above: Performed By: #### C DP, CMPX, MG #### [address] [address] Jewel Bearing Polisher: Dario Almanza MD Neutrophil (Seg) 65 % Normal 36-65 [facility] Comment on above: Performed By: #### C DP, CMPX, MG #### [address] [address] Jewel Bearing Polisher: Dario Almanza MD NRBC Automated 0.0 per 100 WBC Normal 0.0 [facility] Comment on above: Performed By: #### C DP, CMPX, MG #### [address] [address] Jewel Bearing Polisher: Dario Almanza MD Platelet mean volume (Bld) [Entitic vol] 9.2 fL Normal 8.1-13.5 [facility] Comment on above: Performed By: #### C DP, CMPX, MG #### [address] [address] Jewel Bearing Polisher: Dario Almanza MD Platelets (Bld) [#/Vol] 227 10*3/uL Normal 138-453 [facility] Comment on above: Performed By: #### C DP, CMPX, MG #### [facility] [address] [place] [address] Jewel Bearing Polisher: Dario Almanza MD RBC (Bld) [#/Vol] 4.63 10*6/uL Normal 4.21-5.77 [facility] Comment on above: Performed By: #### C DP, CMPX, MG #### [address] [address] Jewel Bearing Polisher: Dario Almanza MD WBC (Bld) [#/Vol] 5.4 10*3/uL Normal 3.5-11.3 [facility] Comment on above: Performed By: #### C DP, CMPX, MG #### [address] [address] Jewel Bearing Polisher: Dario Almanza MD Comp Metabolic Pr/rfx MGon 0 07-15-2024 Albumin [Mass/Vol] 3.8 g/dL Normal 3.5-5.2 [facility] Comment on above: Performed By: #### C DP, CMPX, MG #### [address] [address] Jewel Bearing Polisher: Dario Almanza MD Albumin/Glob Ratio 2.0 Normal 1.0-2.5 [facility] Comment on above: Performed By: #### C DP, CMPX, MG #### [address] [address] Jewel Bearing Polisher: Dario Almanza MD Alkaline Phos 104 U/L Normal 40-129 [facility] Comment on above: Performed By: #### C DP, CMPX, MG #### [facility] [address] [place] [address] Jewel Bearing Polisher: Dario Almanza MD ALT [Catalytic activity/Vol] 7 U/L Low 10-50 [facility] Comment on above: Performed By: #### C DP, CMPX, MG #### [facility] [address] [place] [address] Jewel Bearing Polisher: Dario Almanza MD Anion gap [Moles/Vol] 7 mmol/L Low 9-16 [facility] Comment on above: Performed By: #### C DP, CMPX, MG #### [facility] [address] [place] [address] Jewel Bearing Polisher: Dario Almanza MD AST [Catalytic activity/Vol] 20 U/L Normal 10-50 [facility] Comment on above: Performed By: #### C DP, CMPX, MG #### [facility] [address] [place] [address] Jewel Bearing Polisher: Dario Almanza MD Bilirubin [Mass/Vol] 0.6 mg/dL Normal 0.00-1.20 [facility] Comment on above: Performed By: #### C DP, CMPX, MG #### [facility] [address] [place] [address] Jewel Bearing Polisher: Dario Almanza MD Calcium [Mass/Vol] 9.3 mg/dL Normal 8.6-10.4 [facility] Comment on above: Performed By: #### C DP, CMPX, MG #### [address] [address] Jewel Bearing Polisher: Dario Almanza MD Chloride [Moles/Vol] 103 mmol/L Normal 98-107 [facility] Comment on above: Performed By: #### C DP, CMPX, MG #### [facility] [address] [place] [address] Jewel Bearing Polisher: Dario Almanza MD CO2 [Moles/Vol] 28 mmol/L Normal 20-31 [facility] Comment on above: Performed By: #### C DP, CMPX, MG #### [facility] [address] [place] [address] Jewel Bearing Polisher: Dario Almanza MD Creatinine [Mass/Vol] 0.9 mg/dL Normal 0.70-1.20 [facility] Comment on above: Performed By: #### C DP, CMPX, MG #### [facility] [address] [place] [address] Jewel Bearing Polisher: Dario Almanza MD GFR/1.73 sq M.predicted among non-blacks MDRD (S/P/Bld) [Vol rate/Area] mL/min/{1.73_m2} Normal >60 [facility] Comment on above: Result Comment: These [...] By: #### C DP, CMPX, MG #### [facility] [address] [place] [address] Jewel Bearing Polisher: Dario Almanza MD Glucose [Mass/Vol] 95 mg/dL Normal 74-99 [facility] Comment on above: Performed By: #### C DP, CMPX, MG #### [facility] [address] [place] [address] Jewel Bearing Polisher: Dario Almanza MD Potassium [Moles/Vol] 3.4 mmol/L Low 3.7-5.3 [facility] Comment on above: Performed By: #### C DP, CMPX, MG #### [facility] [address] [place] [address] Jewel Bearing Polisher: Dario Almanza MD Protein [Mass/Vol] 5.8 g/dL Low 6.6-8.7 [facility] Comment on above: Performed By: #### C DP, CMPX, MG #### [facility] [address] [place] [address] Jewel Bearing Polisher: Dario Almanza MD Sodium [Moles/Vol] 138 mmol/L Normal 136-145 [facility] Comment on above: Performed By: #### C DP, CMPX, MG #### [facility] [address] [place] [address] Jewel Bearing Polisher: Dario Almanza MD Urea nitrogen [Mass/Vol] 15 mg/dL Normal - [facility] Comment on above: Performed By: #### C DP, CMPX, MG #### [facility] [address] [place], [place] [id number] Jewel Bearing Polisher: Dario Almanza MD Magnesiumon 07-15-2024 Magnesium [Mass/Vol] 2.0 mg/dL Normal 1.6-2.4 [facility] Comment on above: Performed By: #### C DP, CMPX, MG #### [facility] [address] [place] [address] Jewel Bearing Polisher: Dario Almanza MD BUN, POCon 07-14-2024 Urea nitrogen [Mass/Vol] 18 mg/dL Normal 07-[address] [facility] [address] BRAIN PERFUSIONon 024 CT BRAIN [...] Edgar Montilla MD 07/14/24 Final result Normal [facility] CTA HEAD NECK W CONTRASTon 0 07-14-2024 [...] reasonably achievable. This scan was analyzed using [employer] contact LVO. Identification of suspected findings is [...] Edgar Montilla MD 07/14/24 Final result Normal [facility] Calcium, Ionic (POC)on 07-14 Calcium [Moles/Vol] 1.11 mmol/L Low 1.15-1.33 [facility] Creatinine w/GFR, POCon Creatinine [Mass/Vol] 1.0 mg/dL Normal 0.51-1.19 [facility] GFR/1.73 sq M.predicted among non-blacks MDRD (S/P/Bld) [Vol rate/Area] 84 mL/min/{1.73_m2} Normal >60 [facility] Comment on above: Result Comment: These [...] 2023 Amphetamine(s),Ur Positive Abnormal NEG [facility] Comment on above: Result Comment: Cuto ff: 1000 ng/mL Performed By: #### U AMIC, MARIA D #### [facility] [address] [place] [address] Jewel Bearing Polisher: Dario Almanza MD Benzodiazepine(s) Positive Abnormal NEG [facility] Comment on above: Result Comment: Cuto ff: 200 ng/ml Performed By: #### U AMIC, MARIA D #### [facility] [address] [place] [address] [employer] Polisher: Dario Almanza MD Cannabinoid(s),Ur Positive Abnormal NEG [facility] Comment on above: Result Comment: Cuto ff: 50 ng/ml Performed By: #### U AMIC, MARIA D #### [facility] [address] [place] [address] Jewel Bearing Polisher: Dario Almanza MD Interpretive Info Assay provides rapid clinical screening only. Presumptive positive results for Normal [facility] Comment on above: Result Comment: lega l purposes should be confirmed by another method. To request confirmation, please call the lab within 7 days of sample submission. Performed By: #### U AMIC, MARIA D #### [facility] [address] [place] [address] [employer] Polisher: Dario Almanza MD Barbiturate(s),Ur Negative Normal NEG [facility] Comment on above: Result Comment: Cuto ff: 200 ng/ml Performed By: #### U AMIC, MARIA D #### [employer] [address] [place] [address] Jewel Bearing Polisher: Dario Almanza MD Cocaine Metabolite Negative Normal NEG [facility] Comment on above: Result Comment: Cuto ff: 300 ng/ml Performed By: #### U AMIC, MARIA D #### [facility] [address] [place] [address] Jewel Bearing Polisher: Dario Almanza MD Fentanyl, Urine Negative Normal NEG [facility] Comment on above: Result Comment: Cuto ff: 5 ng/ml Performed By: #### U AMIC, MARIA D #### [address] [address] Jewel Bearing Polisher: Dario Alamnza MD Methadone Ql (U) Negative Normal NEG [facility] Comment on above: Result Comment: Cuto ff: 300 ng/ml Performed By: #### U AMIC, MARIA D #### [address] [address] Jewel Bearing Polisher: Dario Almanza MD Opiate(s), Ur Negative Normal NEG [facility] Comment on above: Result Comment: Cuto ff: 300 ng/ml Performed By: #### U AMIC, MARIA D #### [address] [address] [employer] Bearing Polisher: Dario Almanza MD Oxycodone, Urine Negative Normal NEG [facility] Comment on above: Result Comment: Cuto ff: 100 ng/ml Performed By: #### U AMIC, MARIA D #### [facility] [address] [place] [address] Jew[employer] Bearing Polisher: Draio Almanza MD Phencyclidine, Ur Negative Normal NEG [facility] Comment on above: Result Comment: Cuto ff: 25 ng/ml Performed By: #### U AMIC, MARIA D #### [address] [address] Jewel Bearing Polisher: Dario Almanza MD Electrolyteson 07-14-2024 Anion gap [Moles/Vol] 9 mmol/L Normal 7-16 [facility] Chloride [Moles/Vol] 101 mmol/L Normal 98-107 [facility] CO2 [Moles/Vol] 32 mmol/L High 22-30 [facility] Potassium [Moles/Vol] 4.0 mmol/L Normal 3.5-4.5 [facility] Sodium [Moles/Vol] 141 mmol/L Normal 138-146 [facility] Glucose (POC)on 07-14-2024 Glucose [Mass/Vol] 172 mg/dL High 74-100 [facility] Hgb/Hct, POCon 07-14-2024 Hematocrit (Bld) [Volume fraction] 43 % Normal 41-53 [facility] Hemoglobin (Bld) [Mass/Vol] 14.8 g/dL Normal 13.5-17.5 [facility] Lactic Acidon 07-14-2024 Lactic Acid,Whole Bl 1.7 mmol/L Normal 0.7-2.1 [facility] Comment on above: Performed By: #### E DTOX, LACTIC #### [facility] [address] [place] [address] Jewel Bearing Polisher: Dario Almanza MD Lactic Acid (POC)on 07-14-20 24 Lactate [Moles/Vol] 2.8 mmol/L High 0.56-1.39 [facility] MRI BRAIN W WO CONTRASTon MRI [...] collection present. The proximal portions of the [place] of [place] demonstrate normal flow voids. ORBITS: [...] Edgar Montilla MD 07/14/24 Final result Normal [facility] Stroke Panelon 07-14-2024 Abs. Basophil 0.06 k/uL Normal 0.00-0.20 [facility] Comment on above: Performed By: #### Milan VILLANUEVA #### [place] [address] Jewel Bearing Polisher: Dario Almanza MD Abs.Imm.Granulocyte 0.00 k/uL Normal 0.00-0.30 [facility] Comment on above: Performed By: #### [place] VILLANUEVA #### [place] [address] Jewel Bearing Polisher: Dario Almanza MD Abs.Neutrophil (Seg) 5.40 k/uL Normal 1.50-8.10 [facility] Comment on above: Performed By: #### Milan VILLANUEVA #### [facility] [address] [place] [address] Jewel Bearing Polisher: Dario Almanza MD Basophils/100 WBC (Bld) 1 % Normal 0-2 [facility] Comment on above: Performed By: #### Milan VILLANUEVA #### [place] [address] Jewel Bearing Polisher: Dario Almanza MD Eosinophils (Bld) [#/Vol] 0.00 10*3/uL Normal 0.00-0.44 [facility] Comment on above: Performed By: #### S KAY #### [address] [address] Jewel Bearing Polisher: Dario Almanza MD Eosinophils/100 WBC (Bld) 0 % Low 1-4 [facility] Comment on above: Performed By: #### S TROKE #### [address] [address] Jewel Bearing Polisher: Dario Almanza MD Immature granulocytes/100 WBC (Bld) 0 % Normal 0 [facility] Comment on above: Performed By: #### S TROKE #### [address] [address] Jewel Bearing Polisher: Dario Almanza MD Lymphocytes (Bld) [#/Vol] 0.43 10*3/uL Low 1.10-3.70 [facility] Comment on above: Performed By: #### S TROKE #### [address] [address] Jewel Bearing Polisher: Dario Almanza MD Lymphocytes/100 WBC (Bld) 7 % Low 24-43 [facility] Comment on above: Performed By: #### S TROKE #### [address] [address] Jewel Bearing Polisher: Dario Almanza MD Monocytes (Bld) [#/Vol] 0.31 10*3/uL Normal 0.10-1.20 [facility] Comment on above: Performed By: #### S TROKE #### [address] [address] Jewel Bearing Polisher: Dario Almanza MD Monocytes/100 WBC (Bld) 5 % Normal 3-12 [facility] Comment on above: Performed By: #### S TROKE #### [address] [address] Jewel Bearing Polisher: Dario Almanza MD Morphology David (Bld) [Interp] Normal Normal [facility] Comment on above: Performed By: #### S TROKE #### [address] [address] Jewel Bearing Polisher: Dario Almanza MD Neutrophil (Seg) 87 % High 36-65 [facility] Comment on above: Performed By: #### S TROKE #### [address] [address] Jewel Bearing Polisher: Dario Almanza MD Anion gap [Moles/Vol] 8 mmol/L Low 9-16 [facility] Comment on above: Performed By: #### S TROKE #### [address] [address] Jewel Bearing Polisher: Dario Almanza MD Calcium [Mass/Vol] 8.5 mg/dL Low 8.6-10.4 [facility] Comment on above: Performed By: #### S TROKE #### [address] [address] Jewel Bearing Polisher: Dario Almanza MD Chloride [Moles/Vol] 102 mmol/L Normal 98-107 [facility] Comment on above: Performed By: #### S TROKE #### [address] [address] Jewel Bearing Polisher: Dario Almanza MD CK [Catalytic activity/Vol] 101 U/L Normal 39-308 [facility] Comment on above: Performed By: #### S TROKE #### [address] [address] Jewel Bearing Polisher: Dario Almanza MD CO2 [Moles/Vol] 27 mmol/L Normal 20-31 [facility] Comment on above: Performed By: #### S TROKE #### [address] [address] Jewel B[employer] Polisher: Dario Almanza MD Creatinine [Mass/Vol] 1.1 mg/dL Normal 0.70-1.20 [facility] Comment on above: Performed By: #### S KAY #### [address] [address] Jewel [employer] Polisher: Dario Almanza MD GFR/1.73 sq M.predicted among non-blacks MDRD (S/P/Bld) [Vol rate/Area] 74 mL/min/{1.73_m2} Normal >60 [facility] Comment on above: Result Comment: These [...] secretion. Performed By: #### S KAY #### [facility] [address] [place] [address] Jew[employer] Polisher: Dario Almanza MD Glucose [Mass/Vol] 174 mg/dL High 74-99 [facility] Comment on above: Performed By: #### S KAY #### [facility] [address] [place] [address] Jewel [employer]earing Polisher: Dario Almanza MD Myoglobin [Mass/Vol] 106 ng/mL High 28-72 [facility] Comment on above: Performed By: #### S KAY #### [facility] [address] [place] [address] Jewel Bearing Polisher: Dario Almanza MD Potassium [Moles/Vol] 4.0 mmol/L Normal 3.7-5.3 [facility] Comment on above: Result Comment: SPEC IMEN SLIGHTLY HEMOLYZED, RESULTS MAY BE ADVERSELY AFFECTED. Performed By: #### S KAY #### [facility] [address] [place] [address] Jew[employer] Polisher: Dario Almanza MD Sodium [Moles/Vol] 137 mmol/L Normal 136-145 [facility] Comment on above: Performed By: #### S KAY #### [address] [address] Jewel Bearing Polisher: Dario Almanza MD Troponin, High Sens 24 ng/L High 0-22 [facility] Comment on above: Result Comment: High Sensitivity Troponin values cannot be compared with other Troponin methodologies. Performed By: #### S KAY #### [address] [address] Jewel Bearing Polisher: Dario Almanza MD Urea nitrogen [Mass/Vol] 16 mg/dL Normal 8-23 [facility] Comment on above: Performed By: #### S KAY #### [address] [address] Jewel Bearing Polisher: Dario Almanza MD aPTT Coag (Bld) [Time] 22.1 s Low 23.0-36.5 [facility] Comment on above: Result Comment: IV Heparin Therapy Range: 66.0-92.0 sec Performed By: #### S KAY #### [address] [address] Jewel Bearing Polisher: Dario Almanza MD INR Coag (PPP) [Relative time] 1.1 {INR} Normal [facility] Comment on above: Result Comment: Therapeutic Range: Moderate Anticoagulant Intensity: INR = 2.0-3.0 High Anticoagulant Intensity: INR = 2.5-3.5 Performed By: #### S KAY #### [address] [address] Jewel Bearing Polisher: Dario Almanza MD PT Coag (PPP) [Time] 13.6 s Normal 11.7-14.9 [facility] Comment on above: Performed By: #### S KAY #### [facility] [address] [place] [address] Jew[employer] Polisher: Dario Almanza MD Erythrocyte distribution width (RBC) [Ratio] 13.2 % Normal 11.8-14.4 [facility] Comment on above: Performed By: #### S TROKE #### [address] [address] Jewel Bearing Polisher: Dario Almanza MD Hematocrit (Bld) [Volume fraction] 42.4 % Normal 40.7-50.3 [facility] Comment on above: Performed By: #### S TROKE #### [address] [address] Jewel Bearing Polisher: Dario Almanza MD Hemoglobin (Bld) [Mass/Vol] 13.9 g/dL Normal 13.0-17.0 [facility] Comment on above: Performed By: #### S TROKE #### [address] [address] Jewel Bearing Polisher: Dario Almanza MD MCH (RBC) [Entitic mass] 29.6 pg Normal 25.2-33.5 [facility] Comment on above: Performed By: #### S TROKE #### [address] [address] Jewel Bearing Polisher: Dario Almanza MD MCHC (RBC) [Mass/Vol] 32.8 g/dL Normal 28.4-34.8 [facility] Comment on above: Performed By: #### S TROKE #### [address] [address] Jewel Bearing Polisher: Dario Almanza MD MCV (RBC) [Entitic vol] 90.2 fL Normal 82.6-102.9 [facility] Comment on above: Performed By: #### S TROKE #### [address] [address] Jewel Bearing Polisher: Dario Almanza MD NRBC Automated 0.0 per 100 WBC Normal 0.0 [facility] Comment on above: Performed By: #### S TITUSKE #### [address] [address] Jew[employer] Bearing Polisher: Dario Almanza MD Platelet mean volume (Bld) [Entitic vol] 9.3 fL Normal 8.1-13.5 [facility] Comment on above: Performed By: #### S TITUSKE #### [address] [address] Jewel Bearing Polisher: Dario Almanza MD Platelets (Bld) [#/Vol] 267 10*3/uL Normal 138-453 [facility] Comment on above: Performed By: #### S KAY #### [address] [address] Jew[employer] Bearing Polisher: Dario Almanza MD RBC (Bld) [#/Vol] 4.70 10*6/uL Normal 4.21-5.77 [facility] Comment on above: Performed By: #### S TITUSKE #### [address] [address] Jewel Bearing Polisher: Dario Almanza MD WBC (Bld) [#/Vol] 6.2 10*3/uL Normal 3.5-11.3 [facility] Comment on above: Performed By: #### S TITUSKE #### [address] [address] Jewel Bearing Polisher: Dario Almanza MD TSH w/reflex to FT4on 2023 Thyroid Stim. Horm. 1.44 uIU/mL Normal 0.27-4.20 [facility] Comment on above: Performed By: #### T SHX ####[address] [phone] Director: Dario Almanza MD Tox Scr, Bld, EDon 4 Acetaminophen [Mass/Vol] ug/mL Low 10-30 [facility] Comment on above: Performed By: #### E DTOX, LACTIC #### [address] [address] Jewel Bearing Polisher: Dario Almanza MD Ethanol [Mass/Vol] mg/dL Normal <10 [facility] Comment on above: Performed By: #### E DTOX, LACTIC #### [address] [address] Jewel Bearing Polisher: Dario Almanza MD Ethanol percent <0.010 Normal <0.010 [facility] Comment on above: Performed By: #### E DTOX, LACTIC #### [address] [address] Jewel Bearing Polisher: Dario Almanza MD Salicylate <0.5 Normal 0.0-10.0 [facility] Comment on above: Performed By: #### E DTOX, LACTIC #### [address] [address] Jew[employer] Bearing Polisher: Dario Almanza MD Urinalysis w/ Microon Bacteria None Normal NONE [facility] Comment on above: Performed By: #### U AMIC, MARIA D #### [address] [address] Jewel Bearing Polisher: Dario Almanza MD Bilirubin, SemiQt,Ur Negative Normal NEG [facility] Comment on above: Performed By: #### U AMIC, MARIA D #### [address] [address] Jewel Bearing Polisher: Dario Almanza MD Blood, Urine Negative Normal NEG [facility] Comment on above: Performed By: #### U AMIC, MARIA D #### [facility] [address] [place] [address] Jew[employer] Polisher: Dario Almanza MD Casts 5 TO 10 HYALINE Normal 0-8 [facility] Comment on above: Result Comment: Refe rence range defined for non-centrifuged specimen. Performed By: #### U AMIC, MARIA D #### [facility] [address] [place] [address] Jew[employer] Bearing Polisher: Dario Almanza MD Clarity (U) Clear Normal CLEAR [facility] Comment on above: Performed By: #### U AMIC, MARIA D #### [facility] [address] [place] [address] Jewel Bearing Polisher: Dario Almanza MD Color (U) Yellow Normal YEL [facility] Comment on above: Performed By: #### U AMIC, MARIA D #### [address] [address] Jewel Bearing Polisher: Dario Almanza MD Epithelial cells LM Ql (Urine sed) 0 TO 2 Normal 0-5 [facility] Comment on above: Performed By: #### U AMIC, MARIA D #### [facility] [address] [place] [address] Jewel Bearing Polisher: Dario Almanza MD Glucose Ql (U) 1+ mg/dL Abnormal NEG [facility] Comment on above: Performed By: #### U AMIC, MARIA D #### [facility] [address] [place] [address] Jewel Bearing Polisher: Dario Almanza MD Ketones Ql (U) Negative Normal NEG [facility] Comment on above: Performed By: #### U AMIC, MARIA D #### [facility] [address] [place] [address] Jewel Bearing Polisher: Dario Almanza MD Leukocyte esterase Test strip Ql (U) Negative Normal NEG [facility] Comment on above: Performed By: #### U AMIC, MARIA D #### [address] [address] Jewel Bearing Polisher: Dario Almanza MD Nitrite,Ur Negative Normal NEG [facility] Comment on above: Performed By: #### U AMIC, MARIA D #### [address] [address] Jewel Bearing Polisher: Dario Almanza MD PH,Ur 7.0 Normal 5.0-8.0 [facility] Comment on above: Performed By: #### U AMIC, MARIA D #### [address] [address] Jewel Bearing Polisher: Dario Almanza MD Protein Ql (U) 1+ mg/dL Abnormal NEG [facility] Comment on above: Performed By: #### U AMIC, MARIA D #### [address] [address] Jewel Bearing Polisher: Dario Almanza MD Spec. [place],Ur 1.044 High 1.005-1.[address] [facility] Comment on above: Performed By: #### U AMIC, MARIA D #### [address] [address] Jewel Bearing Polisher: Dario Almanza MD Urine RBC's 0 TO 2 Normal 0-4 [facility] Comment on above: Result Comment: Refe rence range defined for non-centrifuged specimen. Performed By: #### U AMIC, MARIA D #### [address] [address] Jewel Bearing Polisher: Dario Almanza MD Urine WBC's None Normal 0-5 [facility] Comment on above: Performed By: #### U AMIC, MARIA D #### [address] [address] Jewel Bearing Polisher: Dario Almanza MD Urobilinogen,Ur Normal Normal 0.0-1.0 [facility] Comment on above: Performed By: #### U AMI, MARIA D #### [facility] [place] [id number] Jewel Bearing Polisher: Dario Almanza MD Venous Bld Gas,POCon 024 HCO3 (Bld) [Moles/Vol] 31.9 mmol/L High 22.0-29.0 [facility] Oxygen saturation in Blood 45.4 % Low 60.0-85.0 [facility] pCO2, Venous 47.5 mm Hg Normal 41.0-51.0 [facility] pH,Venous 7.435 High 7.320-7.430 [facility] pO2, Venous 24.6 mm Hg Low 30.0-50.0 [facility] Positive Base Excess (calc) 6.4 mmol/L High 0.0-3.0 [facility] XR ABDOMEN (KUB) (SINGLE AP VIEW)on [...] Jt Gray MD 07/14/24 Final result Normal [facility] XR CHEST PORTABLEon 07-14-20 XR CHEST [...] IMPRESSION: No acute pulmonary findings. Interpreted by: Basil Witt DO Signed by: Basil Witt DO 07/14/24 Final result Normal [facility] Basic Metabolic Panelon 04-14 Creatinine Clr Calc Pharmacy 82.90 Normal [facility] Comment on above: Result Comment: PERF ORMED BY: [place] [address] PATHOLOGIST BRIQUETTE OPERATOR ULISES MILLS M.D. Performed By: #### C BC, PT, PTT, CK, HS TROP, CMP, PRL #### [address] GFR/1.73 sq M.predicted MDRD (S/P/Bld) [Vol rate/Area] mL/min/{1.73_m2} Normal [facility] Comment on above: Performed By: #### C BC, PT, PTT, CK, HS TROP, CMP, PRL #### [place] [address] [place] Calcium [Mass/volume] in Ser um or PlasmaOrdered By: Janae Jose on 05-05-2024 Calcium [Mass/Vol] 9.0 mg/dL Normal 8.6-10.3 [facility] Comment on above: Performed By: #### C BC, PT, PTT, CK, HS TROP, CMP, PRL #### [place] [id number] [place] Carbon dioxide, total [Moles /volume] in Serum or PlasmaOrdered By: Janae Jose on 05-05-2024 CO2 [Moles/Vol] 30.3 mmol/L Normal 21.0-31.0 [facility] Comment on above: Performed By: #### C BC, PT, PTT, CK, HS TROP, CMP, PRL #### [place] [address] [place] Chloride [Moles/volume] in S andrei or PlasmaOrdered By: Janae Jose on 05-05-2024 Chloride [Moles/Vol] 98 mmol/L Normal 98-107 [facility] Comment on above: Performed By: #### C BC, PT, PTT, CK, HS TROP, CMP, PRL #### [facility] [address] Creatinine [Mass/volume] in Serum or PlasmaOrdered By: Janae Jose on 05-05-2024 Creatinine [Mass/Vol] 0.97 mg/dL Normal 0.70-1.30 [facility] Comment on above: Performed By: #### C BC, PT, PTT, CK, HS TROP, CMP, PRL #### [facility] [address] Glucose [Mass/volume] in Ser um or PlasmaOrdered By: Janae Jose on 05-05-2024 Glucose [Mass/Vol] 105 mg/dL High 70-100 [facility] Comment on above: ADA recommended refe rence rangeRandom Glucose Reference Range is dependent on time and content of last meal. Glucose of more than 200 mg/dL in a nonstressed, ambulatory subject supports the diagnosis of Diabetes Mellitus. Result Comment: [place] om Glucose Reference Range is dependent on time and content of last meal. Glucose of more than 200 mg/dL in a nonstressed, ambulatory subject supports the diagnosis of Diabetes Mellitus. ADA recommended reference range Performed By: #### C BC, PT, PTT, CK, HS TROP, CMP, PRL #### [facility] [address] No Panel InformationOrdered By: Janae Jose on 05-05-2024 Estimated GFR (CKD-EPI) > 60.0 mL/Min [facility] Creatinine Clearance (Chem 82.90 [facility] Potassium [Moles/volume] in Serum or PlasmaOrdered By: Janae Jose on 05-05-2024 Potassium [Moles/Vol] 4.4 mmol/L Normal 3.5-5.1 [facility] Comment on above: Performed By: #### C BC, PT, PTT, CK, HS TROP, CMP, PRL #### [facility] [address] Serum or plasma anion gap de terminationOrdered By: Janae Jose on 05-05-2024 Anion gap [Moles/Vol] 8.1 mmol/L Normal 6.0-15.0 [facility] Comment on above: Performed By: #### C BC, PT, PTT, CK, HS TROP, CMP, PRL #### [address] Sodium [Moles/volume] in Ser um or PlasmaOrdered By: Janae Jose on 05-05-2024 Sodium [Moles/Vol] 132 mmol/L Low 136-145 [facility] Comment on above: Performed By: #### C BC, PT, PTT, CK, HS TROP, CMP, PRL #### [address] Urea nitrogen [Mass/volume] in Serum or PlasmaOrdered By: Janae Jose on 05-05-2024 Urea nitrogen [Mass/Vol] 25 mg/dL Normal 7-25 [facility] Comment on above: Performed By: #### C BC, PT, PTT, CK, HS TROP, CMP, PRL #### [address] Ammonia [Moles/volume] in Pl asmaOrdered By: Víctor Agrawal on 05-04-2024 Ammonia (P) [Moles/Vol] 22 umol/L Normal 11-35 [facility] Comment on above: Result Comment: PERF ORMED BY: [place] [address] PATHOLOGIST BRIQUETTE OPERATOR ULISES MILLS M.D. Performed By: #### C BC, PT, PTT, CK, HS TROP, CMP, PRL #### [address] Automated basophil %Ordered By: Magdy Douglass on 05-04-2024 Basophils/100 WBC (Bld) 0.1 % Normal . [facility] Comment on above: Performed By: #### C BC, PT, PTT, CK, HS TROP, CMP, PRL #### [address] Automated basophil countOrde red By: Magdy Douglass on 05-04-2024 Basophils (Bld) [#/Vol] 0.0 10*3/uL Normal 0.0-0.2 [facility] Comment on above: Result Comment: PERF ORMED BY: [place] [address] PATHOLOGIST BRIQUETTE OPERATOR ULISES MILLS M.D. Performed By: #### C BC, PT, PTT, CK, HS TROP, CMP, PRL #### [address] Automated blood monocyte cou ntOrdered By: Magdy Douglass on 05-04-2024 Monocytes (Bld) [#/Vol] 0.3 10*3/uL Normal 0.0-0.8 [facility] Comment on above: Performed By: #### C BC, PT, PTT, CK, HS TROP, CMP, PRL #### [address] Automated eosinophil %Ordere d By: Magdy Douglass on 05-04-2024 Eosinophils/100 WBC (Bld) 0.0 % Normal . [facility] Comment on above: Performed By: #### C BC, PT, PTT, CK, HS TROP, CMP, PRL #### [address] Automated eosinophil countOr dered By: Magdy Douglass on 05-04-2024 Eosinophils (Bld) [#/Vol] 0.0 10*3/uL Normal 0.0-0.45 [facility] Comment on above: Performed By: #### C BC, PT, PTT, CK, HS TROP, CMP, PRL #### [address] Automated monocyte %Ordered By: Magdy Douglass on 05-04-2024 Monocytes/100 WBC (Bld) 3.0 % Normal . [facility] Comment on above: Performed By: #### C BC, PT, PTT, CK, HS TROP, CMP, PRL #### [facility] [address] Automated neutrophil %Ordere d By: Magdy Douglass on 05-04-2024 Neutrophils/100 WBC (Bld) 92.0 % Normal . [facility] Comment on above: Performed By: #### C BC, PT, PTT, CK, HS TROP, CMP, PRL #### [facility] [address] [address] Basic Metabolic Panelon 04-14 Anion gap [Moles/Vol] 11.4 mmol/L Normal 6.0-15.0 [facility] Comment on above: Performed By: #### C BC, PT, PTT, CK, HS TROP, CMP, PRL #### [facility] [address] Calcium [Mass/Vol] 9.6 mg/dL Normal 8.6-10.3 [facility] Comment on above: Performed By: #### C BC, PT, PTT, CK, HS TROP, CMP, PRL #### [facility] [address] Chloride [Moles/Vol] 93 mmol/L Low 98-107 [facility] Comment on above: Performed By: #### C BC, PT, PTT, CK, HS TROP, CMP, PRL #### [facility] [address] CO2 [Moles/Vol] 30.9 mmol/L Normal 21.0-31.0 [facility] Comment on above: Performed By: #### C BC, PT, PTT, CK, HS TROP, CMP, PRL #### [facility] [address] Creatinine [Mass/Vol] 0.88 mg/dL Normal 0.70-1.30 [facility] Comment on above: Performed By: #### C BC, PT, PTT, CK, HS TROP, CMP, PRL #### [address] Creatinine Clr Calc Pharmacy 91.86 Normal [facility] Comment on above: Performed By: #### C BC, PT, PTT, CK, HS TROP, CMP, PRL #### [facility] [address] GFR/1.73 sq M.predicted MDRD (S/P/Bld) [Vol rate/Area] mL/min/{1.73_m2} Normal [facility] Comment on above: Performed By: #### C BC, PT, PTT, CK, HS TROP, CMP, PRL #### [address] Glucose [Mass/Vol] 107 mg/dL High 70-100 [facility] Comment on above: Result Comment: [facility] Glucose Reference Range is dependent on time and content of last meal. Glucose of more than 200 mg/dL in a nonstressed, ambulatory subject supports the diagnosis of Diabetes Mellitus. ADA recommended reference range Performed By: #### C BC, PT, PTT, CK, HS TROP, CMP, PRL #### [address] Potassium [Moles/Vol] 4.3 mmol/L Normal 3.5-5.1 [facility] Comment on above: Performed By: #### C BC, PT, PTT, CK, HS TROP, CMP, PRL #### [address] Sodium [Moles/Vol] 131 mmol/L Low 136-145 [facility] Comment on above: Performed By: #### C BC, PT, PTT, CK, HS TROP, CMP, PRL #### [place] [address] [place] Urea nitrogen [Mass/Vol] 19 mg/dL Normal 7-25 [facility] Comment on above: Performed By: #### C BC, PT, PTT, CK, HS TROP, CMP, PRL #### [address] Complete Blood Count Auto Di ffon 05-04-2024 Mean Corpuscular HGB Conc 32.9 g/dL Normal 32.5-35.6 [facility] Comment on above: Performed By: #### C BC, PT, PTT, CK, HS TROP, CMP, PRL #### [address] NRBC% 0.0 /100{WBC} Normal 0-0.5 [facility] Comment on above: Performed By: #### C BC, PT, PTT, CK, HS TROP, CMP, PRL #### [address] Erythrocyte distribution wid th [Ratio] by Automated countOrdered By: Magdy Douglass on 05-04-2024 Erythrocyte distribution width (RBC) [Ratio] 16.5 % High 12.0-14.8 [facility] Comment on above: Performed By: #### C BC, PT, PTT, CK, HS TROP, CMP, PRL #### [address] Erythrocytes [#/volume] in B lood by Automated countOrdered By: Magdy Douglass on 05-04-2024 RBC (Bld) [#/Vol] 4.97 10*6/uL Normal 3.90-5.60 [facility] Comment on above: Performed By: #### C BC, PT, PTT, CK, HS TROP, CMP, PRL #### [address] Folate [Mass/volume] in Seru m or PlasmaOrdered By: Janae Jose on 05-04-2024 Folate [Mass/Vol] 9.7 ng/mL >5.9 [facility] Comment on above: Folate reference ran ge: >5.9 ng/mlThe WHO technical consultation on folate and vitamin [id number] has determined that folate concentrations lessthan 4 ng/ml are considered deficient. Hematocrit [Volume Fraction] of Blood by Automated countOrdered By: Magdy Douglass on 05-04-2024 Hematocrit (Bld) [Volume fraction] 45.0 % Normal 38.8-50.0 [facility] Comment on above: Performed By: #### C BC, PT, PTT, CK, HS TROP, CMP, PRL #### [facility] [address] Hemoglobin [Mass/volume] in BloodOrdered By: Magdy Douglass on 05-04-2024 Hemoglobin (Bld) [Mass/Vol] 14.8 g/dL Normal 13.0-17.0 [facility] Comment on above: Performed By: #### C BC, PT, PTT, CK, HS TROP, CMP, PRL #### [facility] [address] Leukocytes [#/volume] correc srinivas for nucleated erythrocytes in Blood by Automated counOrdered By: Magdy Douglass on 05-04-2024 WBC corrected for nucl RBC Auto (Bld) [#/Vol] 9.6 10*3/uL 4.1-10.5 [facility] Leukocytes [#/volume] in Blo od by Automated countOrdered By: Magdy Douglass on 05-04-2024 WBC (Bld) [#/Vol] 9.6 10*3/uL Normal 4.1-10.5 [facility] Comment on above: Performed By: #### C BC, PT, PTT, CK, HS TROP, CMP, PRL #### [address] Lymphocytes [#/volume] in Bl ood by Automated countOrdered By: Magdy Douglass on 05-04-2024 Lymphocytes (Bld) [#/Vol] 0.5 10*3/uL Low 1.00-4.8 [facility] Comment on above: Performed By: #### C BC, PT, PTT, CK, HS TROP, CMP, PRL #### [place] [address] [place] Lymphocytes/100 leukocytes i n Blood by Automated countOrdered By: Magdy Douglass on 05-04-2024 Lymphocytes/100 WBC (Bld) 4.9 % Normal . [facility] Comment on above: Performed By: #### C BC, PT, PTT, CK, HS TROP, CMP, PRL #### [address] MCH [Entitic mass] by Automa srinivas countOrdered By: Magdy Douglass on 05-04-2024 MCH (RBC) [Entitic mass] 29.8 pg Normal 27.5-35.2 [facility] Comment on above: Performed By: #### C BC, PT, PTT, CK, HS TROP, CMP, PRL #### [address] MCHC Auto (RBC) [Mass/Vol]Or dered By: Magdy Douglass on 05-04-2024 MCHC (RBC) [Mass/Vol] 32.9 g/dL 32.5-35.6 [facility] MCV [Entitic volume] by Auto mated countOrdered By: Magdy Douglass on 05-04-2024 MCV (RBC) [Entitic vol] 90.4 fL Normal 83.5-101 [facility] Comment on above: Performed By: #### C BC, PT, PTT, CK, HS TROP, CMP, PRL #### [address] Neutrophils [#/volume] in Bl ood by Automated countOrdered By: Magdy Douglass on 05-04-2024 Neutrophils (Bld) [#/Vol] 8.9 10*3/uL High 1.8-7.7 [facility] Comment on above: Performed By: #### C BC, PT, PTT, CK, HS TROP, CMP, PRL #### [address] Nucleated erythrocytes [Pres ence] in Blood by Automated countOrdered By: Magdy Douglass on 05-04-2024 Nucleated RBC Auto Ql (Bld) 0.0 /100{WBC} 0-0.5 [facility] Platelet mean volume [Entiti c volume] in Blood by Automated countOrdered By: Magdy Douglass on 05-04-2024 Platelet mean volume (Bld) [Entitic vol] 6.5 fL Low 6.6-10.1 [facility] Comment on above: Performed By: #### C BC, PT, PTT, CK, HS TROP, CMP, PRL #### [address] Platelets [#/volume] in Bloo d by Automated countOrdered By: Magdy Douglass on 05-04-2024 Platelets (Bld) [#/Vol] 417 10*3/uL Normal 150-450 [facility] Comment on above: Performed By: #### C BC, PT, PTT, CK, HS TROP, CMP, PRL #### [address] Thyrotropin [Units/volume] i n Serum or PlasmaOrdered By: Janae Jose on 05-04-2024 TSH Qn 5.50 m[IU]/L High 0.45-5.33 [facility] Comment on above: Result Comment: PERF ORMED BY: [place] [address] PATHOLOGIST BRIQUETTE OPERATOR ULISES MILLS M.D. Performed By: #### C BC, PT, PTT, CK, HS TROP, CMP, PRL #### [address] Vit. B12/Folate Profileon Folate 9.7 ng/mL Normal >5.9 [facility] Comment on above: Result Comment: Evelyn te reference range: >5.9 ng/ml The WHO technical consultation on folate and vitamin b12 deficiencies has determined that folate concentrations less than 4 ng/ml are considered deficient. Performed By: #### C BC, PT, PTT, CK, HS TROP, CMP, PRL #### [address] Vitamin B12 ser/plasOrdered By: Janae Jose on 05-04-2024 Cobalamin (Vitamin B12) [Mass/Vol] 500 pg/mL Normal 180-914 [facility] Comment on above: Performed By: #### C BC, PT, PTT, CK, HS TROP, CMP, PRL #### [address] Alanine aminotransferase [En zymatic activity/volume] in Serum or PlasmaOrdered By: Magdy Douglass on 05-03-2024 ALT [Catalytic activity/Vol] 14 U/L Normal 7-52 [facility] Comment on above: Performed By: #### C BC, PT, PTT, CK, HS TROP, CMP, PRL #### [facility] [address] Albumin [Mass/volume] in Ser um or Plasma by Bromocresol green (BCG) dye binding methoOrdered By: Magdy Douglass on 05-03-2024 Albumin BCG dye [Mass/Vol] 3.1 g/dL 3.5-5.7 [facility] Alkaline phosphatase [Enzyma tic activity/volume] in Serum or PlasmaOrdered By: Magdy Douglass on 05-03-2024 ALP [Catalytic activity/Vol] 131 U/L High 34-104 [facility] Comment on above: Performed By: #### C BC, PT, PTT, CK, HS TROP, CMP, PRL #### [address] Aspartate aminotransferase [ Enzymatic activity/volume] in Serum or PlasmaOrdered By: Magdy Douglass on 05-03-2024 AST [Catalytic activity/Vol] 12 U/L Low 13-39 [facility] Comment on above: Performed By: #### C BC, PT, PTT, CK, HS TROP, CMP, PRL #### [address] Bilirubin.total [Mass/volume ] in Serum or PlasmaOrdered By: Magdy Douglass on 05-03-2024 Bilirubin [Mass/Vol] 0.4 mg/dL Normal 0.3-1.0 [facility] Comment on above: Performed By: #### C BC, PT, PTT, CK, HS TROP, CMP, PRL #### [address] head/brain wo albert 05-03 CT head/brain wo [facility] [place] [address] CT Scan Report Signed Patient: Aaron Olivarez MR#: [id number] 00 : 1960 Acct:[id number] Age/Sex: 63 / M ADM Date: 05/01/24 Loc: Room: 7K0471-7 Type: ADM IN Attending Dr: Janae Jose [...] ABNORMALITY. Impression dictated by: Patricio Velázquez Jr., D.OJeremi05/03/2024 4:20 PM Dictation Location: [place] [address] Transcribed By: [facility] 05/03/24 1620 Dictated By: Patricio Velázquez Jr, DO 05/03/24 1618 Signed By: 05/03/24 1620 Normal [facility] Complete Blood Count Auto Di ffon 05-03-2024 Basophils (Bld) [#/Vol] 0.0 10*3/uL Normal 0.0-0.2 [facility] Comment on above: Result Comment: PERF ORMED BY: [place] [address] PATHOLOGIST BRIQUETTE OPERATOR ULISES MILLS M.D. Performed By: #### C BC, PT, PTT, CK, HS TROP, CMP, PRL #### [address] Basophils/100 WBC (Bld) 0.3 % Normal . [facility] Comment on above: Performed By: #### C BC, PT, PTT, CK, HS TROP, CMP, PRL #### [address] Eosinophils (Bld) [#/Vol] 0.0 10*3/uL Normal 0.0-0.45 [facility] Comment on above: Performed By: #### C BC, PT, PTT, CK, HS TROP, CMP, PRL #### [address] Eosinophils/100 WBC (Bld) 0.0 % Normal . [facility] Comment on above: Performed By: #### C BC, PT, PTT, CK, HS TROP, CMP, PRL #### [address] Erythrocyte distribution width (RBC) [Ratio] 16.0 % High 12.0-14.8 [facility] Comment on above: Performed By: #### C BC, PT, PTT, CK, HS TROP, CMP, PRL #### [address] Hematocrit (Bld) [Volume fraction] 40.0 % Normal 38.8-50.0 [facility] Comment on above: Performed By: #### C BC, PT, PTT, CK, HS TROP, CMP, PRL #### [address] Hemoglobin (Bld) [Mass/Vol] 13.4 g/dL Normal 13.0-17.0 [facility] Comment on above: Performed By: #### C BC, PT, PTT, CK, HS TROP, CMP, PRL #### [address] Lymphocytes (Bld) [#/Vol] 0.4 10*3/uL Low 1.00-4.8 [facility] Comment on above: Performed By: #### C BC, PT, PTT, CK, HS TROP, CMP, PRL #### [address] Lymphocytes/100 WBC (Bld) 4.7 % Normal . [facility] Comment on above: Performed By: #### C BC, PT, PTT, CK, HS TROP, CMP, PRL #### [address] MCH (RBC) [Entitic mass] 30.1 pg Normal 27.5-35.2 [facility] Comment on above: Performed By: #### C BC, PT, PTT, CK, HS TROP, CMP, PRL #### [address] MCV (RBC) [Entitic vol] 90.1 fL Normal 83.5-101 [facility] Comment on above: Performed By: #### C BC, PT, PTT, CK, HS TROP, CMP, PRL #### [address] Mean Corpuscular HGB Conc 33.5 g/dL Normal 32.5-35.6 [facility] Comment on above: Performed By: #### C BC, PT, PTT, CK, HS TROP, CMP, PRL #### [address] Monocytes (Bld) [#/Vol] 0.2 10*3/uL Normal 0.0-0.8 [facility] Comment on above: Performed By: #### C BC, PT, PTT, CK, HS TROP, CMP, PRL #### [address] Monocytes/100 WBC (Bld) 2.4 % Normal . [facility] Comment on above: Performed By: #### C BC, PT, PTT, CK, HS TROP, CMP, PRL #### [address] Neutrophils (Bld) [#/Vol] 7.2 10*3/uL Normal 1.8-7.7 [facility] Comment on above: Performed By: #### C BC, PT, PTT, CK, HS TROP, CMP, PRL #### [address] Neutrophils/100 WBC (Bld) 92.6 % Normal . [facility] Comment on above: Performed By: #### C BC, PT, PTT, CK, HS TROP, CMP, PRL #### [address] NRBC% 0.0 /100{WBC} Normal 0-0.5 [facility] Comment on above: Performed By: #### C BC, PT, PTT, CK, HS TROP, CMP, PRL #### [address] Platelet mean volume (Bld) [Entitic vol] 6.3 fL Low 6.6-10.1 [facility] Comment on above: Performed By: #### C BC, PT, PTT, CK, HS TROP, CMP, PRL #### [address] Platelets (Bld) [#/Vol] 328 10*3/uL Normal 150-450 [facility] Comment on above: Performed By: #### C BC, PT, PTT, CK, HS TROP, CMP, PRL #### [address] RBC (Bld) [#/Vol] 4.44 10*6/uL Normal 3.90-5.60 [facility] Comment on above: Performed By: #### C BC, PT, PTT, CK, HS TROP, CMP, PRL #### [address] WBC (Bld) [#/Vol] 7.7 10*3/uL Normal 4.1-10.5 [facility] Comment on above: Performed By: #### C BC, PT, PTT, CK, HS TROP, CMP, PRL #### [address] Comprehensive Metabolic Pane wilner 05-03-2024 Albumin [Mass/Vol] 3.1 g/dL Low 3.5-5.7 [facility] Comment on above: Performed By: #### C BC, PT, PTT, CK, HS TROP, CMP, PRL #### [address] Anion gap [Moles/Vol] 4.4 mmol/L Low 6.0-15.0 [facility] Comment on above: Performed By: #### C BC, PT, PTT, CK, HS TROP, CMP, PRL #### [address] Calcium [Mass/Vol] 8.8 mg/dL Normal 8.6-10.3 [facility] Comment on above: Performed By: #### C BC, PT, PTT, CK, HS TROP, CMP, PRL #### [address] Chloride [Moles/Vol] 93 mmol/L Low 98-107 [facility] Comment on above: Performed By: #### C BC, PT, PTT, CK, HS TROP, CMP, PRL #### [address] CO2 [Moles/Vol] 40.3 mmol/L High 21.0-31.0 [facility] Comment on above: Performed By: #### C BC, PT, PTT, CK, HS TROP, CMP, PRL #### [address] Creatinine [Mass/Vol] 0.88 mg/dL Normal 0.70-1.30 [facility] Comment on above: Performed By: #### C BC, PT, PTT, CK, HS TROP, CMP, PRL #### [address] Creatinine Clr Calc Pharmacy 91.86 Normal [facility] Comment on above: Result Comment: PERF ORMED BY: [place] [address] PATHOLOGIST BRIQUETTE OPERATOR ULISES MILLS M.D. Performed By: #### C BC, PT, PTT, CK, HS TROP, CMP, PRL #### [place] [address] [place] GFR/1.73 sq M.predicted MDRD (S/P/Bld) [Vol rate/Area] mL/min/{1.73_m2} Normal [facility] Comment on above: Performed By: #### C BC, PT, PTT, CK, HS TROP, CMP, PRL #### [address] Glucose [Mass/Vol] 112 mg/dL High 70-100 [facility] Comment on above: Result Comment: [facility] Glucose Reference Range is dependent on time and content of last meal. Glucose of more than 200 mg/dL in a nonstressed, ambulatory subject supports the diagnosis of Diabetes Mellitus. ADA recommended reference range Performed By: #### C BC, PT, PTT, CK, HS TROP, CMP, PRL #### [address] Potassium [Moles/Vol] 4.7 mmol/L Normal 3.5-5.1 [facility] Comment on above: Performed By: #### C BC, PT, PTT, CK, HS TROP, CMP, PRL #### [address] Sodium [Moles/Vol] 133 mmol/L Low 136-145 [facility] Comment on above: Performed By: #### C BC, PT, PTT, CK, HS TROP, CMP, PRL #### [address] Urea nitrogen [Mass/Vol] 20 mg/dL Normal 7-25 [facility] Comment on above: Performed By: #### C BC, PT, PTT, CK, HS TROP, CMP, PRL #### [address] ECG 12 lead ECGon 05-03-2024 ECG 12 lead ECG [facility] [place] [address] Electrocardiograph Report Signed Patient: Aaron Olivarez MR#: [id number] 00 : 1960 Acct:[id number] Age/Sex: 63 / M ADM Date: 05/01/24 Loc: Room: [address] [place] [address] Type: ADM IN Attending Dr: Janae Jose [...] No previous ECGs available Confirmed by MARTI GUDINOYASMINE ([id number]) on 05/03/2024 5:35:14 PM Referred By: Electronically Signed By:YASMINE KIDD MD [facility] Transcribed By: MUS Signed By Yasmine Kidd MD, [facility] 05/03/24 1735 Normal [facility] echo transthoracicon [facility] echo transthoracic [facility] [place] [address] [place] [address] Echocardiogram Signed Patient: Aaron Olivarez MR#: [id number] 00 : 1960 Acct:[id number] Age/Sex: 63 / M ADM Date: 05/01/24 Loc: Room: [address] [place] [address] Type: ADM IN Attending Dr: Janae Jose MD Ordering Provider: Janae Jose MD Date of Service: 05/02/24 [facility] echo transthoracic: evaluate lv function Copies to: Yasmine Kidd MD, [facility] Janae Jose MD BSA: 2.0 m2 BP: [...] 05/03/24 0946 Signed By: Yasmine Kidd MD, [facility] 05/03/24 1524 Normal [facility] Protein [Mass/volume] in Ser um or PlasmaOrdered By: Magdy Douglass on 05-03-2024 Protein [Mass/Vol] 5.9 g/dL Low 6.4-8.9 [facility] Comment on above: Performed By: #### C BC, PT, PTT, CK, HS TROP, CMP, PRL #### [facility] [address] [place] [address] [place] Serum globulin measurement b y calculation (mass/volume)Ordered By: Magdy Douglass on 05-03-2024 Globulin (S) [Mass/Vol] 2.8 g/dL [facility] Comment on above: Performed By: #### C BC, PT, PTT, CK, HS TROP, CMP, PRL #### [facility] [address] Serum or plasma albumin/glob ulin mass ratioOrdered By: Magdy Douglass on 05-03-2024 Albumin/Globulin [Mass ratio] 1.1 {ratio} Normal [facility] Comment on above: Performed By: #### C BC, PT, PTT, CK, HS TROP, CMP, PRL #### [place] [id number] [facility] XR chest 1V portableon 05-03 XR chest 1V portable [facility] [place] [address] [place] [address] XRay Report Signed Patient: Aaron Olivarez MR#: [id number] 00 : 1960 Acct:[id number] Age/Sex: 63 / M ADM Date: 05/01/24 Loc: Room: [address] [place] [address] Type: ADM IN Attending Dr: Janae Jose [...] STUDY. Impression dictated by: Patricio Velázquez Jr., D.O.05/03/2024 10:40 AM Dictation Location: [place] [address] Transcribed By: [facility] 05/03/24 1040 Dictated By: Patricio Velázquez Jr, DO 05/03/24 1038 Signed By: 05/03/24 1040 Normal [facility] C reactive protein [Mass/vol ume] in Serum or PlasmaOrdered By: Magdy Douglass on 05-02-2024 CRP [Mass/Vol] 2.5 mg/dL 0.0-0.5 [facility] C-Reactive Proteinon 024 C-Reactive Protein 2.5 mg/dL High 0.0-0.5 [facility] Comment on above: Result Comment: PERF ORMED BY: [place] [address] PATHOLOGIST BRIQUETTE OPERATOR ULISES MILLS M.D. Performed By: #### C BC, PT, PTT, CK, HS TROP, CMP, PRL #### [address] Complete Blood Count Auto Di ffon 05-02-2024 Basophils (Bld) [#/Vol] 0.0 10*3/uL Normal 0.0-0.2 [facility] Comment on above: Result Comment: PERF ORMED BY: [place] [address] PATHOLOGIST BRIQUETTE OPERATOR ULISES MILLS M.D. Performed By: #### C BC, PT, PTT, CK, HS TROP, CMP, PRL #### [address] Basophils/100 WBC (Bld) 0.2 % Normal . [facility] Comment on above: Performed By: #### C BC, PT, PTT, CK, HS TROP, CMP, PRL #### [address] Eosinophils (Bld) [#/Vol] 0.0 10*3/uL Normal 0.0-0.45 [facility] Comment on above: Performed By: #### C BC, PT, PTT, CK, HS TROP, CMP, PRL #### [address] Eosinophils/100 WBC (Bld) 0.0 % Normal . [facility] Comment on above: Performed By: #### C BC, PT, PTT, CK, HS TROP, CMP, PRL #### [address] Erythrocyte distribution width (RBC) [Ratio] 15.5 % High 12.0-14.8 [facility] Comment on above: Performed By: #### C BC, PT, PTT, CK, HS TROP, CMP, PRL #### [address] Hematocrit (Bld) [Volume fraction] 37.0 % Low 38.8-50.0 [facility] Comment on above: Performed By: #### C BC, PT, PTT, CK, HS TROP, CMP, PRL #### [address] Hemoglobin (Bld) [Mass/Vol] 12.3 g/dL Low 13.0-17.0 [facility] Comment on above: Performed By: #### C BC, PT, PTT, CK, HS TROP, CMP, PRL #### [address] Lymphocytes (Bld) [#/Vol] 0.6 10*3/uL Low 1.00-4.8 [facility] Comment on above: Performed By: #### C BC, PT, PTT, CK, HS TROP, CMP, PRL #### [address] Lymphocytes/100 WBC (Bld) 7.8 % Normal . [facility] Comment on above: Performed By: #### C BC, PT, PTT, CK, HS TROP, CMP, PRL #### [address] MCH (RBC) [Entitic mass] 29.8 pg Normal 27.5-35.2 [facility] Comment on above: Performed By: #### C BC, PT, PTT, CK, HS TROP, CMP, PRL #### [address] MCV (RBC) [Entitic vol] 89.7 fL Normal 83.5-101 [facility] Comment on above: Performed By: #### C BC, PT, PTT, CK, HS TROP, CMP, PRL #### [address] Mean Corpuscular HGB Conc 33.2 g/dL Normal 32.5-35.6 [facility] Comment on above: Performed By: #### C BC, PT, PTT, CK, HS TROP, CMP, PRL #### [address] Monocytes (Bld) [#/Vol] 0.6 10*3/uL Normal 0.0-0.8 [facility] Comment on above: Performed By: #### C BC, PT, PTT, CK, HS TROP, CMP, PRL #### [address] Monocytes/100 WBC (Bld) 8.2 % Normal . [facility] Comment on above: Performed By: #### C BC, PT, PTT, CK, HS TROP, CMP, PRL #### [address] Neutrophils (Bld) [#/Vol] 6.3 10*3/uL Normal 1.8-7.7 [facility] Comment on above: Performed By: #### C BC, PT, PTT, CK, HS TROP, CMP, PRL #### [address] Neutrophils/100 WBC (Bld) 83.8 % Normal . [facility] Comment on above: Performed By: #### C BC, PT, PTT, CK, HS TROP, CMP, PRL #### [address] NRBC% 0.2 /100{WBC} Normal 0-0.5 [facility] Comment on above: Performed By: #### C BC, PT, PTT, CK, HS TROP, CMP, PRL #### [address] Platelet mean volume (Bld) [Entitic vol] 6.5 fL Low 6.6-10.1 [facility] Comment on above: Performed By: #### C BC, PT, PTT, CK, HS TROP, CMP, PRL #### [address] Platelets (Bld) [#/Vol] 276 10*3/uL Normal 150-450 [facility] Comment on above: Performed By: #### C BC, PT, PTT, CK, HS TROP, CMP, PRL #### [address] RBC (Bld) [#/Vol] 4.13 10*6/uL Normal 3.90-5.60 [facility] Comment on above: Performed By: #### C BC, PT, PTT, CK, HS TROP, CMP, PRL #### [address] WBC (Bld) [#/Vol] 7.5 10*3/uL Normal 4.1-10.5 [facility] Comment on above: Performed By: #### C BC, PT, PTT, CK, HS TROP, CMP, PRL #### [address] Comprehensive Metabolic Pane wilner 05-02-2024 Albumin [Mass/Vol] 3.0 g/dL Low 3.5-5.7 [facility] Comment on above: Performed By: #### C BC, PT, PTT, CK, HS TROP, CMP, PRL #### [address] Albumin/Globulin [Mass ratio] 1.2 {ratio} Normal [facility] Comment on above: Performed By: #### C BC, PT, PTT, CK, HS TROP, CMP, PRL #### [address] ALP [Catalytic activity/Vol] 123 U/L High 34-104 [facility] Comment on above: Performed By: #### C BC, PT, PTT, CK, HS TROP, CMP, PRL #### [address] ALT [Catalytic activity/Vol] 14 U/L Normal 7-52 [facility] Comment on above: Performed By: #### C BC, PT, PTT, CK, HS TROP, CMP, PRL #### [address] Anion gap [Moles/Vol] 3.5 mmol/L Low 6.0-15.0 [facility] Comment on above: Performed By: #### C BC, PT, PTT, CK, HS TROP, CMP, PRL #### [address] AST [Catalytic activity/Vol] 12 U/L Low 13-39 [facility] Comment on above: Performed By: #### C BC, PT, PTT, CK, HS TROP, CMP, PRL #### [address] Bilirubin [Mass/Vol] 0.3 mg/dL Normal 0.3-1.0 [facility] Comment on above: Performed By: #### C BC, PT, PTT, CK, HS TROP, CMP, PRL #### [address] Calcium [Mass/Vol] 8.7 mg/dL Normal 8.6-10.3 [facility] Comment on above: Performed By: #### C BC, PT, PTT, CK, HS TROP, CMP, PRL #### [address] Chloride [Moles/Vol] 91 mmol/L Low 98-107 [facility] Comment on above: Performed By: #### C BC, PT, PTT, CK, HS TROP, CMP, PRL #### [address] CO2 [Moles/Vol] 40.3 mmol/L High 21.0-31.0 [facility] Comment on above: Performed By: #### C BC, PT, PTT, CK, HS TROP, CMP, PRL #### [address] Creatinine [Mass/Vol] 0.89 mg/dL Normal 0.70-1.30 [facility] Comment on above: Performed By: #### C BC, PT, PTT, CK, HS TROP, CMP, PRL #### [address] Creatinine Clr Calc Pharmacy 90.82 Normal [facility] Comment on above: Performed By: #### C BC, PT, PTT, CK, HS TROP, CMP, PRL #### [address] GFR/1.73 sq M.predicted MDRD (S/P/Bld) [Vol rate/Area] mL/min/{1.73_m2} Normal [facility] Comment on above: Performed By: #### C BC, PT, PTT, CK, HS TROP, CMP, PRL #### [address] Globulin (S) [Mass/Vol] 2.5 g/dL Normal [facility] Comment on above: Performed By: #### C BC, PT, PTT, CK, HS TROP, CMP, PRL #### [address] Glucose [Mass/Vol] 100 mg/dL Normal 70-100 [facility] Comment on above: Result Comment: [facility] Glucose Reference Range is dependent on time and content of last meal. Glucose of more than 200 mg/dL in a nonstressed, ambulatory subject supports the diagnosis of Diabetes Mellitus. ADA recommended reference range Performed By: #### C BC, PT, PTT, CK, HS TROP, CMP, PRL #### [address] Potassium [Moles/Vol] 4.8 mmol/L Normal 3.5-5.1 [facility] Comment on above: Performed By: #### C BC, PT, PTT, CK, HS TROP, CMP, PRL #### [address] Protein [Mass/Vol] 5.5 g/dL Low 6.4-8.9 [facility] Comment on above: Performed By: #### C BC, PT, PTT, CK, HS TROP, CMP, PRL #### [address] Sodium [Moles/Vol] 130 mmol/L Low 136-145 [facility] Comment on above: Performed By: #### C BC, PT, PTT, CK, HS TROP, CMP, PRL #### [facility] [address] Urea nitrogen [Mass/Vol] 19 mg/dL Normal 7-25 [facility] Comment on above: Performed By: #### C BC, PT, PTT, CK, HS TROP, CMP, PRL #### [facility] [address] Lactate [Moles/volume] in Se rum or PlasmaOrdered By: Magdy Douglass on 05-02-2024 Lactate [Moles/Vol] 0.6 mmol/L Normal 0.5-2.2 [facility] Comment on above: Result Comment: PERF ORMED BY: [place] [address] PATHOLOGIST BRIQUETTE OPERATOR ULISES MILLS M.D. Performed By: #### C BC, PT, PTT, CK, HS TROP, CMP, PRL #### [address] Legionella Pneumophilia Ag, Uron 05-02-2024 Legionella Pneumophilia Ag, Ur Negative Normal Negative [facility] Comment on above: Order Comment: SOURC E OF SPECIMEN: Urine Result Comment: Pres umptive negative for L. pneumophila serogroup 1 antigen in urine, suggesting no recent or current infection. Legionnaires' disease cannot be ruled out since other serogroups and species may also cause disease. Performed at: - [address] [id number] [employer]isher: Gareth Alford MD, Phone: [phone] Performed By: #### C BC, PT, PTT, CK, HS TROP, CMP, PRL #### [facility] [address] [place] [address] [place] Magnesium [Mass/volume] in S andrei or PlasmaOrdered By: Magdy Douglass on 05-02-2024 Magnesium [Mass/Vol] 2.1 mg/dL Normal 1.9-2.7 [facility] Comment on above: Performed By: #### C BC, PT, PTT, CK, HS TROP, CMP, PRL #### [address] Strep Pneumoniae Ag, Uron Body Fluid Culture Not indicated. Normal . [facility] Comment on above: Order Comment: SOURC E OF SPECIMEN: Urine Performed By: #### C BC, PT, PTT, CK, HS TROP, CMP, PRL #### [address] Organism ID Not indicated. Normal . [facility] Comment on above: Order Comment: SOURC E OF SPECIMEN: Urine Performed By: #### C BC, PT, PTT, CK, HS TROP, CMP, PRL #### [address] Please Note: Normal . [facility] Comment on above: Order Comment: SOURC E OF SPECIMEN: Urine Result Comment: Alice ege of [employer] standards require a culture to be performed on CSF specimens submitted for bacterial antigen testing. ([id number]) Urine specimens will not be cultured. Performed at: [address] [id number] [employer]isher: Gareth Alford MD, Phone: [phone] PERFORMED BY: [place] [address] PATHOLOGIST BRIQUETTE OPERATOR ULISES MILLS M.D. Performed By: #### C BC, PT, PTT, CK, HS TROP, CMP, PRL #### [address] Specimen source Nom (Unsp spec) Urine Normal . [facility] Comment on above: Order Comment: SOURC E OF SPECIMEN: Urine Performed By: #### C BC, PT, PTT, CK, HS TROP, CMP, PRL #### [address] Streptococcus Pneumoniae Ag Negative Normal Negative [facility] Comment on above: Order Comment: SOURC E OF SPECIMEN: Urine Performed By: #### C BC, PT, PTT, CK, HS TROP, CMP, PRL #### [address] Troponin I High Sensitivityo n 05-02-2024 Troponin I High Sensitivity 74.8 pg/mL Off scale high 0.0-20.0 [facility] Comment on above: Result Comment: Crit ical Result : Called to and read back by: JAYLAN YAO at: 05/02/2024 15:02:51 by:JANET PERFORMED BY: [place] [address] PATHOLOGIST BRIQUETTE OPERATOR ULISES MILLS M.D. Performed By: #### C BC, PT, PTT, CK, HS TROP, CMP, PRL #### [facility] [address] [place], [place] [id number] [place] Troponin I High Sensitivity 99.0 pg/mL Off scale high 0.0-20.0 [facility] Comment on above: Result Comment: Crit ical Result : Called to and read back by: MANAN CHEEK at: 05/02/2024 00:45:01 by:[id number] PERFORMED BY: [place] [address] PATHOLOGIST BRIQUETTE OPERATOR ULISES MILLS M.D. Performed By: #### C BC, PT, PTT, CK, HS TROP, CMP, PRL #### [facility] [address] [place] [address] [place] Troponin I.cardiac [Mass/vol ume] in Serum or Plasma by Detection limit <= 0.01 ng/Ordered By: Janae Jose on 05-02-2024 Troponin I.cardiac DL <= 0.01 ng/mL [Mass/Vol] 74.8 pg/mL 0.0-20.0 [facility] Comment on above: Critical Result : Ca lled to and read back by: JAYLAN YAO at: 05/02/2024 15:02:51 by:JANET ACETAMINOPHENon 11-24-2022 Acetaminophen [Mass/Vol] ug/mL Normal 10.0-30.0 [facility] Comment on above: Performed By: #### S ALYC, ACET, CMP, ETH #### [facility] [address] [address] [address] Renny Azevedo CBC AUTO DIFFon 11-24-2022 BASO # 0.0 103/ul Normal 0.0-0.1 [facility] Comment on above: Performed By: #### C BC #### [facility] [address] [address] [address] Renny Azevedo Basophils/100 WBC (Bld) 0.8 % Normal 0.2-2.0 [facility] Comment on above: Performed By: #### C BC #### [facility] [address] [place] [address] Dr. Renny Azevedo EO # 0.3 103/ul Normal 0.0-0.7 [facility] Comment on above: Performed By: #### C BC #### [facility] [address] [place] [address] Dr. Renny Azevedo Eosinophils/100 WBC (Bld) 6.2 % Normal 0.9-7.0 [facility] Comment on above: Performed By: #### C BC #### [facility] [address] [place] [address] Dr. Renny Azevedo Erythrocyte distribution width (RBC) [Ratio] 14.8 % Normal 11.0-15.0 [facility] Comment on above: Performed By: #### C BC #### [facility] [address] [place] [address] Dr. Renny Azevedo Hematocrit (Bld) [Volume fraction] 38.6 % Critically low 42.0-54.0 [facility] Comment on above: Performed By: #### C BC #### [facility] [address] [place] [address] Dr. Renny Azevedo Hemoglobin (Bld) [Mass/Vol] 12.6 g/dL Critically low 14.0-18.0 [facility] Comment on above: Performed By: #### C BC #### [facility] [address] [place] [address] Dr. Renny Azevedo IG # 0.01 10e3/ul Normal 0.00-0.03 [facility] Comment on above: Performed By: #### C BC #### [facility] [address] [place] [address] Dr. Renny Azevedo IG % 0.2 % Normal 0.0-0.5 [facility] Comment on above: Performed By: #### C BC #### [facility] [address] [place] [address] Dr. Renny Azevedo LYMPH # 1.4 103/ul Normal 1.2-3.8 [facility] Comment on above: Performed By: #### C BC #### [facility] [address] [place] [address] Dr. Renny Azevedo Lymphocytes/100 WBC (Bld) 28.1 % Normal 20.5-60.0 [facility] Comment on above: Performed By: #### C BC #### [facility] [address] [place] [address] Dr. Renny Azevedo MANUAL DIFF REQ NO Normal [facility] Comment on above: Performed By: #### C BC #### [facility] [address] [place] [address] Dr. Renny Azevedo MCH (RBC) [Entitic mass] 31.0 pg Normal 25.9-34.0 [facility] Comment on above: Performed By: #### C BC #### [facility] [address] [place] [address] Dr. Renny Azevedo MCHC (RBC) [Mass/Vol] 32.6 g/dL Normal 29.9-35.2 [facility] Comment on above: Performed By: #### C BC #### [facility] [address] [place] [address] Dr. Renny Azevedo MCV (RBC) [Entitic vol] 95.1 fL Critically high 80.0-94.0 [facility] Comment on above: Performed By: #### C BC #### [facility] [address] [place] [address] Dr. Renny Azevedo MONO # 0.3 103/ul Normal 0.3-0.8 [facility] Comment on above: Performed By: #### C BC #### [facility] [address] [place] [address] Dr. Renny Azevedo Monocytes/100 WBC (Bld) 5.8 % Normal 1.7-12.0 [facility] Comment on above: Performed By: #### C BC #### [facility] [address] [address] [address] Renny Azevedo NEUT # 3.0 103/ul Normal 1.4-6.5 [facility] Comment on above: Performed By: #### C BC #### [facility] [address] [address] [address] Renny Azevedo Neutrophils/100 WBC (Bld) 58.9 % Normal 43.0-75.0 [facility] Comment on above: Performed By: #### C BC #### [facility] [address] [address] [address] Renny Azevedo Platelet mean volume (Bld) [Entitic vol] 8.8 fL Critically low 9.5-13.5 [facility] Comment on above: Performed By: #### C BC #### [facility] [address] [place] [address] Dr. Renny Azevedo PLT 260 103/ul Normal 150-450 [facility] Comment on above: Performed By: #### C BC #### [facility] [address] [address] [address] Renny Azevedo RBC 4.06 106/ul Critically low 4.70-6.10 [facility] Comment on above: Performed By: #### C BC #### [facility] [address] [address] [address] Renny Azevedo WBC 5.0 103/ul Normal 4.0-11.0 [facility] Comment on above: Performed By: #### C BC #### [facility] [address] [place] [address] CSPINE WO CONon [...] by: VIC ADAMES Date: 2022-11-24 05:42 Normal [facility] CT FACIAL BONES WO CONon CT FACIAL [...] ANNA RICO Date: 2022-11-24 05:43 Normal [facility] DRUG SCREEN RAPID (URINE)on 11-24-2022 AMP Positive Abnormal NEGATIVE [facility] Comment on above: Performed By: #### D RUGRPD #### [facility] [address] [place] [address] Dr. Renny Azevedo BAR Negative Normal NEGATIVE [facility] Comment on above: Performed By: #### D RUGRPD #### [facility] [address] [address] [address] Renny Azevedo BUP Negative Normal NEGATIVE [facility] Comment on above: Performed By: #### D RUGRPD #### [facility] [address] [place] [address] Dr. Renny Azevedo BZO Negative Normal NEGATIVE [facility] Comment on above: Performed By: #### D RUGRPD #### [facility] [address] [place] [address] Dr. Renny Azevedo SHAYE Positive Abnormal NEGATIVE [facility] Comment on above: Performed By: #### D RUGRPD #### [facility] [address] [place] [address] Dr. Renny Azevedo CUT-OFFS SEE BELOW Normal [facility] Comment on above: Result Comment: AMP (Amphetamine): 500ng/mL, BAR (Barbituates): 200 ng/mL, BZO (Benzodiazepines): 150 ng/mL, BUP (Buprenorphine): 10 ng/mL, SHAYE (Cocaine): 150 ng/mL, mAMP (Methamphetamine): 500 ng/mL, MTD (Methadone): 200 ng/mL, OPI (Opiates): 100 ng/mL, OXY (Oxycodone): 100 ng/mL, PCP (Phencyclidine): 25 ng/mL, PPX (Propoxyphene): 300 ng/mL, THC (Cannabinoids): 50 ng/mL, TCA (Trycyclic Antidepressants): 300 ng/mL Performed By: #### D RUGRPD #### [facility] [address] [place] [address] Dr. Renny Azevedo DRUG CUT HEADER DRUG CLASS TEST SYST EM CUT-OFF CONCENTRATIONS ARE FOLLOWS: Normal [facility] Comment on above: Performed By: #### D RUGRPD #### [facility] [address] [place] [address] Dr. Renny Azevedo mAMP Positive Abnormal NEGATIVE [facility] Comment on above: Performed By: #### D RUGRPD #### [facility] [address] [place] [address] Dr. Renny Azevedo MTD Negative Normal NEGATIVE [facility] Comment on above: Performed By: #### D RUGRPD #### [facility] [address] [place] [address] Dr. Renny Azevedo OPI Negative Normal NEGATIVE [facility] Comment on above: Performed By: #### D RUGRPD #### [facility] [address] [place] [address] Dr. Renny Azevedo OXY Negative Normal NEGATIVE [facility] Comment on above: Performed By: #### D RUGRPD #### [facility] [address] [place] [address] Dr. Renny Azevedo PCP Negative Normal NEGATIVE [facility] Comment on above: Performed By: #### D RUGRPD #### [facility] [address] [place] [address] Dr. Renny Azevedo PPX Negative Normal NEGATIVE [facility] Comment on above: Performed By: #### D RUGRPD #### [facility] [address] [place] [address] Dr. Renny Azevedo TCA Negative Normal NEGATIVE [facility] Comment on above: Performed By: #### D RUGRPD #### [facility] [address] [place] [address] Dr. Renny Azevedo THC Negative Normal NEGATIVE [facility] Comment on above: Performed By: #### D RUGRPD #### [facility] [address] [place] [address] Dr. Renny Azevedo ETHANOL (BLD ALC)on 11-24-19 23 ALC NOTE NOTE: 80 mg/dl is th e legal limit for a blood alcohol level Normal [facility] Comment on above: Performed By: #### E TH #### [facility] [address] [place] [address] Dr. Renny Azevedo Ethanol [Mass/Vol] 169 mg/dL Normal [facility] Comment on above: Performed By: #### E TH #### [facility] [address] [place] [address] Dr. Renny Azevedo ALC NOTE NOTE: 80 mg/dl is th e legal limit for a blood alcohol level Normal [facility] Comment on above: Performed By: #### S ALYC, ACET, CMP, ETH #### [facility] [address] [place] [address] Dr. Renny Azevedo Ethanol [Mass/Vol] 239 mg/dL Normal [facility] Comment on above: Performed By: #### S ALYC, ACET, CMP, ETH #### [facility] [address] [place] [address] Dr. Renny Azevedo PROF 14(COMP METB)on 023 Albumin [Mass/Vol] 4.2 g/dL Normal 3.4-5.0 [facility] Comment on above: Performed By: #### S ALYC, ACET, CMP, ETH #### [facility] [address] [place] [address] Dr. Renny Azevedo Albumin/Globulin [Mass ratio] 1.3 {ratio} Normal [facility] Comment on above: Performed By: #### S ALYC, ACET, CMP, ETH #### [facility] [address] [place] [address] Dr. Renny Azevedo ALP [Catalytic activity/Vol] 99 U/L Normal 46-116 [facility] Comment on above: Performed By: #### S ALYC, ACET, CMP, ETH #### [facility] [address] [address] [address] Renny Azevedo ALT [Catalytic activity/Vol] 157 U/L Critically high 16-63 [facility] Comment on above: Performed By: #### S ALYC, ACET, CMP, ETH #### [facility] [address] [address] [address] Renny Azevedo Anion gap [Moles/Vol] 10.0 mmol/L Normal Th [facility] Comment on above: Performed By: #### S ALYC, ACET, CMP, ETH #### [facility] [address] [place] [address] Dr. Renny Azevedo AST [Catalytic activity/Vol] 362 U/L Critically high 15-37 [facility] Comment on above: Performed By: #### S ALYC, ACET, CMP, ETH #### [facility] [address] [address] [address] Renny Azevedo Bilirubin [Mass/Vol] 0.3 mg/dL Normal 0.2-1.0 [facility] Comment on above: Performed By: #### S ALYC, ACET, CMP, ETH #### [facility] [address] [place] [address] Dr. Renny Azevedo Calcium [Mass/Vol] 8.7 mg/dL Normal 8.5-10.1 [facility] Comment on above: Performed By: #### S ALYC, ACET, CMP, ETH #### [facility] [address] [address] [address] Renny Azevedo Chloride [Moles/Vol] 92 mmol/L Critically low 98-107 [facility] Comment on above: Performed By: #### S ALYC, ACET, CMP, ETH #### [facility] [address] [address] [address] Renny Azevedo CO2 [Moles/Vol] 30.4 mmol/L Normal 21.0-32.0 [facility] Comment on above: Performed By: #### S ALYC, ACET, CMP, ETH #### [facility] [address] [place] [address] Dr. Renny Azevedo Creatinine [Mass/Vol] 1.60 mg/dL Critically high 0.70-1.30 [facility] Comment on above: Performed By: #### S ALYC, ACET, CMP, ETH #### [facility] [address] [place] [address] Dr. Renny Azevedo EGFR-AF AUSTRIAN 53 mL/min/1.73m2 Critically low >=60 [facility] Comment on above: Performed By: #### S ALYC, ACET, CMP, ETH #### [facility] [address] [place] [address] Dr. Renny Azevedo EGFR-NON AF AUSTRIAN 44 mL/min/1.73m2 Critically low >=60 [facility] Comment on above: Performed By: #### S ALYC, ACET, CMP, ETH #### [facility] [address] [place] [address] Dr. Renny Azevedo Globulin (S) [Mass/Vol] 3.2 g/dL Normal [facility] Comment on above: Performed By: #### S ALYC, ACET, CMP, ETH #### [facility] [address] [place] [address] Dr. Renny Azevedo Glucose [Mass/Vol] 82 mg/dL Normal 74-106 [facility] Comment on above: Performed By: #### S ALYC, ACET, CMP, ETH #### [facility] [address] [place] [address] Dr. Renny Azevedo Potassium [Moles/Vol] 3.4 mmol/L Critically low 3.5-5.1 [facility] Comment on above: Performed By: #### S ALYC, ACET, CMP, ETH #### [facility] [address] [place] [address] Dr. Renny Azevedo Protein [Mass/Vol] 7.4 g/dL Normal 6.4-8.2 [facility] Comment on above: Performed By: #### S ALYC, ACET, CMP, ETH #### [facility] [address] [address] [address] Renny Azevedo Sodium [Moles/Vol] 129 mmol/L Critically low 136-145 Th [facility] Comment on above: Performed By: #### S ALYC, ACET, CMP, ETH #### [facility] [address] [address] [address] Renny Azevedo Urea nitrogen [Mass/Vol] 17.0 mg/dL Normal 7.0-18.0 [facility] Comment on above: Performed By: #### S ALYC, ACET, CMP, ETH #### [facility] [address] [address] [address] Renny Azevedo Urea nitrogen/Creatinine [Mass ratio] 10.6 mg/mg Normal [facility] Comment on above: Performed By: #### S ALYC, ACET, CMP, ETH ####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 Giraldochastity DO Work Phone: [facility] 11-21-2024 06:00-0500 Body weight 78 kg Sulaiman Giraldochastity DO Work Phone: [facility] 11-19-2024 16:33-0500 Body height 182.88 cm Sulaiman Razaroh DO Work Phone: [facility] 11-18-2024 13:05-0500 Diastolic blood pressure 95 mm[Hg] Sulaiman Degroh DO Work Phone: [facility] 11-18-2024 13:05-0500 Heart rate 87 /min Sulaiman Degroh DO Work Phone: [facility] 11-18-2024 13:05-0500 Respiratory rate 18 /min Sulaiman Razaroh DO Work Phone: [facility] 11-18-2024 13:05-0500 SaO2% (BldA) [Mass fraction] 100 % Sulaiman Razaroh DO Work Phone: [facility] 11-18-2024 13:05-0500 Systolic blood pressure 162 mm[Hg] Sulaiman Degroh DO Work Phone: [facility] 11-18-2024 08:03-0500 Body temperature 97.9 [degF] Sulaiman Razaroh DO Work Phone: [facility] 11-18-2024 00:00-0500 Inhaled oxygen flow rate 2 L/min Sulaiman Razaroh DO Work Phone: [facility] 11-17-2024 08:50-0500 Body height 182.88 cm Sulaiman Razaroh DO Work Phone: [facility] 11-17-2024 08:50-0500 Body weight 78.7 kg Sulaiman Degroh DO Work Phone: [facility] 05-06-2024 14:25-0400 Body temperature 98 [degF] DO Sulaiman Degroh Work Phone: [facility] 05-06-2024 14:25-0400 Diastolic blood pressure 60 mm[Hg] DO Sulaiman Degroh Work Phone: [facility] 05-06-2024 14:25-0400 Heart rate 64 /min DO Sulaiman Feldman Work Phone: [facility] 05-06-2024 14:25-0400 Respiratory rate 19 /min DO Sulaiman Feldman Work Phone: [facility] 05-06-2024 14:25-0400 SaO2% (BldA) [Mass fraction] 93 % DO Sulaiman Feldman Work Phone: [facility] 05-06-2024 14:25-0400 Systolic blood pressure 127 mm[Hg] DO Sulaiman Feldman Work Phone: [facility] 05-06-2024 07:34-0400 Inhaled oxygen flow rate 2 L/min DO Sulaiman Feldman Work Phone: [facility] 05-06-2024 06:00-0400 Body weight 77.7 kg DO Sulaiman Feldman Work Phone: [facility] 05-04-2024 01:00-0400 Inhaled oxygen concentration 40 % DO Sulaiman Feldman Work Phone: [facility] 05-02-2024 11:24-0400 Body height 182.88 cm DO Sulaiman Feldman Work Phone: [facility] Encounters Encounter Date Encounter Type Care Provider Facility Start: 11-18-2024 Non-patient / Non-visit Sulaiman Feldman DO Work Phone: [facility] Work Phone: Start: 11-18-2024 End: 11-21-2024 Evaluation and management of inpatient Sulaiman Razaroh DO Work Phone: [facility] [place] [address] Critical Care Work Phone: Start: 11-17-2024 End: 11-21-2024 Emergency department patient visit NO PCP NO PCP [facility] Start: 11-17-2024 Evaluation and management of inpatient Sulaiman Ryroh DO Work Phone: [facility] Work Phone: Start: 11-17-2024 observation encounter Sulaiman Feldman DO Work Phone: [facility] Work Phone: Start: 07-14-2024 End: 07-15-2024 Evaluation and management of inpatient MARY BLANTON [facility] Start: 05-06-2024 Non-patient / Non-visit DO Isai id Degroh Work Phone: [facility] Work Phone: Start: 05-02-2024 Non-patient / Non-visit DO Isai id Degroh Work Phone: [facility] Work Phone: Start: 05-01-2024 End: 05-06-2024 Evaluation and management of inpatient DO Sulaiman Feldman Work Phone: [facility] Work Phone: Start: 11-24-2022 End: 11-24-[address] NONE LISTED REQUEST Facility: Start: 10-14-2018 End: 10-14-2018 Emergency department patient visit [facility] Start: 07-02-2018 End: 07-02-2018 Patient encounter UNKNOWN PROVIDER Facility:[facility] Start: 01-29-2018 End: 02-05-2018 Evaluation and management of inpatient ELIAN V INDURTI [facility] Start: 09-29-2017 End: 12-11-2017 Emergency department patient visit None Provider Facility:[facility] Start: 06-07-2017 End: 06-07-2017 Emergency department patient visit [facility] Start: 05-27-2017 End: 05-27-2017 Emergency department patient visit [facility] Procedures Date Procedure Procedure Detail Performing Clinician Start: 11-19-2024 MRI of head Sulaiman gold DO Work Phone: Start: 11-17-2024 Plain chest X-ray Sulaiman Feldman DO Work Phone: Start: 11-17-2024 CT angiography of head Sulaiman Feldman DO Work Phone: Start: 11-17-2024 CT angiography of ne ck vessels Sulaiman Feldman DO Work Phone: Start: 11-17-2024 CT of head without contrast Sulaiman Feldman DO Work Phone: Start: 05-03-2024 CT of head without contrast [...] 01-30-2018 T3 ELIAN INDURTI Start: 01-30-2018 T4 ELAIN INDURTI Start: 01-30-2018 TSH WITH REFLEX SREEKAN TH INDURTI Start: 01-29-2018 UA W/REFLEX CULTURE SRE EKANTH INDURTI Start: 01-29-2018 URINE DRUG SCREEN SREEK ANTH INDURTI Start: 01-29-2018 IP CONSULT TO HISTOR Y AND PHYSICAL ELIANMACARIO JOEURTI Start: 01-29-2018 MISCELLANEOUS NURSIN G CARE ORDER (SPECIFY) ELIAN POWELLI Start: 01-29-2018 VITAL SIGNS ELIAN JOEURTI Start: 01-29-2018 FULL CODE ELIAN POWELLI Start: 01-29-2018 PATIENT STATUS (DIRECT) ELIANMACARIO JOEURTI Start: 01-29-2018 DIET GENERAL ELIAN MARROQUIN Plan of Treatment Date Care Activity Detail Author Start: 11-21-2024 [facility] Start: 11-20-2024 Evaluation procedure [facility] Start: 11-18-2024 MRI of head MR head/brain wo/w con [facility] Start: 11-18-2024 [facility] Start: 11-18-2024 Evaluation procedure [facility] Start: 11-17-2024 [facility] Start: 11-17-2024 Referral to inside sales agent [facility] Start: 11-17-2024 Physical therapy procedure [facility] Start: 11-17-2024 Referral to occupati onal therapist [facility] Start: 11-17-2024 Referral to speech a nd language therapy service [facility] Start: 11-17-2024 Referral to neurologist [facility] Start: 11-17-2024 Hospital admission [facility] Start: 11-17-2024 [facility] Start: 11-17-2024 Telemedicine consult ation with patient [facility] Start: 05-06-2024 [facility] Start: 05-06-2024 Referral to rehabili tation physician [facility] Start: 05-02-2024 Administration of prophylactic treatment [facility] Start: 05-02-2024 [facility] Start: 05-01-2024 Consultation [facility] Start: 05-01-2024 Hospital admission [facility] Amphetamines [Presen ce] in Urine by Screen method [facility] Barbiturates [Presen ce] in Urine by Screen method [facility] Benzodiazepines [Pre sence] in Urine [facility] Benzoylecgonine [Pre sence] in Urine [facility] Cannabinoids [Presen ce] in Urine by Screen method [facility] Legionella pneumophi la Ag [Presence] in Urine [facility] Opiates [Presence] in Urine [facility] Patient Education [facility] Work Phone: Patient referral [facility] Work Phone: Phencyclidine [Prese nce] in Urine [facility] Specimen source [Alex ntifier] of Unspecified specimen [facility] Streptococcus pneumo niae Ag [Presence] in Unspecified specimen [facility] Payers Date Payer Category Payer Unknown [id number] 2024 Medicare [id number] 2024 Self-pay [id number] 2021 Medicaid [id number] 2017 Unknown [id number] 2017 Unknown [id number] 1995 Medicare [id number] 1995 Medicare [id number] 1958 Unknown [id number] 1960 Unknown [id number] 1960 Unknown [id number] 1960 Unknown [id number] Medicaid Medicaid Out of State [id number] Unknown [id number] Unknown [id number] Social History Date Type Detail Facility Start: 05-06-2024 End: 11-17-2024 Tobacco smoking status NHIS Current Heavy tobacco smoker [facility] Start: 1960 Sex Assigned At Male F [facility] Start: 11-18-2024 End: 11-21-2024 Sex Male (finding) [facility] Start: 11-18-2024 Tobacco smoking stat us NHIS Unknown if ever smoked [facility] Goals Date Patient Goal Desired Activity /State Functional Status Date Assessment Result Facility 11-21-2024 Functional status Patient at Baseline [facility] Work Phone: 05-06-2024 Functional status Patient at Baseline [facility] Work Phone: Mental Status Date Assessment Result Facility 11-21-2024 Cognitive function Cognitive Sta tus Patient at Baseline [facility] Work Phone: 05-06-2024 Cognitive function Cognitive Sta tus Patient at Baseline [facility] Work Phone: Clinical Notes 05-02-2024 to 11-20-2024 Note Date & Type Note Facility 11-20-2024 Progress note Note Date/Time November 20, 2024 7:21pm [facility] [address] [place] [address] Hospitalist Progress Note Signed Patient: Aaron Olivarez MR#: [id number] : 1960 Acct:[id number] Age/Sex: 64 / M Adm Date: 5 Loc: Room: [address] [place] [address] Type: ADM IN Attending Dr: Yamila Doanld MD Copies to: ~ Date of Service: 11/20/2024 Subjective Subjective Narrative: Assessment And Plan 64M PMH of COPD, multi substance abuse on Suboxone who was found having a seizure CVA - Ruled out Seizure The patient had been walking around and then was found on the ground seizing shortly thereafter. He was found with Left-sided weakness. He was evaluated in the ED and was found not a TPA candidate . the patient is afebrile and hemodynamically stable. there is no leukocytosis urinalysis didn?t show any pyuria or hematuria CXR shows No acute cardiopulmonary pathology. EKG shows NSR Tox screen positive for Amphetamine, benzodiazepine and THC Head and neck CTA shows No evidence of focal stenosis, aneurysmal dilatation, dissection or occlusion. No evidence of acute traumatic injury. The cervical spine and upper thoracic spine are grossly intact. ct brain shows no acute intracranial process , Chronic changes MRI Brain shows moderate to severe chronic microvascular disease and central involutional changes negative for acute stroke or midline shift. encephalomalacia greatest left anterior frontal lobe and left gyrus rectus, motion degradation. EEG normal he likely has had generalized tonic-clonic seizure with postictal paralysis Neuro recommended to Continue levetiracetam 500 mg twice daily indefinitely and Outpatient neurology follow-up. HTN urgency Hydralazine prn Lisinopril Agitation The patient was aggressive and violent require restrain Geodon was not effective he was placed on Ativan/Haldol as needed troponin elevation Troponin is marginally elevated he was evaluated by cardiology who do not believe he is having ACS LINTERVAL HPI: As Above, Pt resting in bed. the patient remain not fully cooperative but not agitated. he tolertes diet Chronic diseases: Unless mentioned Above, Essential home medications have been continued. DVT Px: Addressed Disposition: move to 4 waiting bed Plan of care Discussed with: the medical team, the patient L Exam Physical Exam Vital Signs: Temp Pulse Resp BP Pulse Ox O2 Del Method O2 Flow Rate 36.9 C 99 18 144/92 H 97 Room Air 2 11/20/24 16:02 11/20/24 17:05 11/20/24 17:05 11/20/24 17:05 11/20/24 17:05 11/20/24 17:05 11/18/24 00:00 Narrative: GEN: NAD, not fully Cooperative NECK: ? JVD LUNGS: CTA CV: nl S1 S2; no M/R/Gts ABD: Soft, ND, NT, ? HSM EXT: No peripheral edema, No calf muscle tenderness NEURO: not fully cooperative; however move all her extremities; no overt focalneurological deficits PSYCH: flat affect, AOx2-3 Objective Lab Results 11/19/24 05:12 11/19/24 05:12 Meds Allergies and Active Meds Allergies No Known Drug Allergies Allergy (Verified 11/17/24 08:25) Unknown Reaction Active Meds: Active Medications Generic Name Dose Route Start Last Admin Trade Name Freq PRN Reason Stop Dose Admin Aspirin 325 mg 11/18/24 09:00 11/20/24 09:44 Aspirin 325 Mg Tablet PO 11/18/25 08:59 325 mg DAILY CORBY Administration Atorvastatin Calcium 40 mg 11/17/24 21:00 11/19/24 20:46 Atorvastatin 40 Mg Tablet PO 11/17/25 20:59 Not Given QPM CORBY Folic Acid 1 mg 11/19/24 09:00 11/20/24 09:44 Folic Acid 1 Mg Tablet PO 11/19/25 08:59 1 mg DAILY CORBY Administration Haloperidol Lactate 5 mg 11/18/24 23:27 11/19/24 20:45 Haloperidol Lactate 5 Mg/Ml Vial IV-PUSH 11/18/25 16:42 5 mg Q6H PRN Administration Agitation Hydralazine HCl 10 mg 11/17/24 20:06 11/20/24 02:15 Hydralazine 20 Mg/Ml Vial IV-PUSH 11/17/25 20:05 10 mg Q4H PRN Administration Blood Pressure - High Levetiracetam 500 mg/ Dextrose 105 mls @ 420 mls/hr 11/17/24 21:00 11/20/24 10:03 IV 11/21/24 20:59 Infused BID CORBY Infusion Lisinopril 20 mg 11/18/24 16:50 11/20/24 09:44 Lisinopril 20 Mg Tablet PO 11/18/25 16:49 20 mg DAILY CORBY Administration Lorazepam 1 mg 11/18/24 23:27 Lorazepam 2 Mg/Ml Vial IV-PUSH 05/17/25 01:05 Q4H PRN Agitation Lorazepam 2 mg 11/18/24 23:27 11/19/24 20:14 Lorazepam 2 Mg/Ml Vial IV-PUSH 05/17/25 16:43 2 mg Q4H PRN Administration Agitation Multivitamins 1 tab 11/19/24 09:00 11/20/24 09:44 Multivitamin 1 Tab Tablet PO 11/19/25 08:59 1 tab DAILY CORBY Administration Sodium Chloride 0 ml 11/17/24 08:25 11/20/24 09:41 Sodium Chloride 0.9 % 10 Ml Syringe IV-PUSH 11/17/25 08:24 10 ml PRN PRN Administration Flush Sodium Chloride 10 ml 11/17/24 13:00 11/20/24 16:04 Sodium Chloride 0.9 % 10 Ml Syringe IV-PUSH 11/17/25 12:59 10 ml Q8H CORBY Administration Sodium Chloride 0 ml 11/17/24 14:00 11/20/24 16:04 Sodium Chloride 0.9 % 10 Ml Syringe IV-PUSH 11/17/25 13:59 Not Given QSHIFT CORBY Sodium Chloride 10 ml 11/18/24 01:06 11/19/24 20:14 Sodium Chloride 0.9 % 10 Ml Vial.Pf INJECTION 11/18/25 01:05 10 ml Q4H PRN Administration Ativan dilution Sodium Chloride 10 ml 11/18/24 16:44 Sodium Chloride 0.9 % 10 Ml Vial.Pf INJECTION 11/18/25 16:43 Q4H PRN Ativan dilution Thiamine HCl 100 mg 11/18/24 21:00 11/20/24 09:44 Thiamine 100 Mg Tablet PO 11/18/25 20:59 100 mg BID CORBY Administration A&P - Hospitalist Assessment/Plan (1) Altered mental status: (2) Seizure: Plan Documented By: Yamila Donald MD 11/20/24 1723 Signed By: <Electronically signed by Yamila Donald MD> 11/20/[address] [place] [address] Work Phone: 1([phone] 388-604501-08-2025 [place] [address] Hospitalist Progress Note Signed Patient: Aaron Olivarez MR#: [id number] : 1960 Acct:[id number] Age/Sex: 64 / M Adm Date: 5 Loc: Room: [address] [place] [address] Type: ADM IN Attending Dr: Yamila Donald MD Copies to: ~ Date of Service: 11/20/2024 Subjective Subjective Narrative: Assessment And Plan 64M PMH of COPD, multi substance abuse on Suboxone who was found having a seizure CVA - Ruled out Seizure The patient had been walking around and then was found on the ground seizing shortly thereafter. Hewas found with Left-sided weakness. He was evaluated in the ED and was found not a TPA candidate . the patient is afebrile and hemodynamically stable. there is no leukocytosis urinalysis didn?t show any pyuria or hematuria CXR shows No acute cardiopulmonary pathology. EKG shows NSR Tox screen positive for Amphetamine, benzodiazepine and THC Head and neck CTA shows No evidence of focal stenosis, aneurysmal dilatation, dissection or occlusion. No evidence of acute traumatic injury. The cervical spine and upper thoracic spine are grossly intact. ct brain shows no acute intracranial process , Chronic changes MRI Brain shows moderate to severe chronic microvascular disease and central involutional changes negative for acute stroke or midline shift. encephalomalacia greatest left anterior frontal lobe and left gyrus rectus, motion degradation. EEG normal he likely has had generalized tonic-clonic seizure with postictal paralysis Neuro recommended to Continue levetiracetam 500 mg twice daily indefinitely and Outpatient neurology follow-up. HTN urgency Hydralazine prn Lisinopril Agitation The patient was aggressive and violent require restrain Geodon was not effective he was placed on Ativan/Haldol as needed troponin elevation Troponin is marginally elevated he was evaluated by cardiology who do not believe he is having ACS LINTERVAL HPI: As Above, Pt resting in bed. the patient remain not fully cooperative but not agitated. he tolertes diet Chronic diseases: Unless mentioned Above, Essential home medications have been continued. DVT Px: Addressed Disposition: move to waiting bed Plan of care Discussed with: the medical team, the patient L Exam Physical Exam Vital Signs: Temp Pulse Resp BP Pulse Ox O2 Del Method O2 Flow Rate 36.9 C 99 18 144/92 H 97 Room Air 2 11/20/24 16:02 11/20/24 17:05 11/20/24 17:05 11/20/24 17:05 11/20/24 17:05 11/20/24 17:05 11/18/24 00:00 Narrative: GEN: NAD, not fully Cooperative NECK: ? JVD LUNGS: CTA CV: nl S1 S2; no M/R/Gts ABD: Soft, ND, NT, ? HSM EXT: No peripheral edema, No calf muscle tenderness NEURO: not fully cooperative; however move all her extremities; no overt focalneurological deficits PSYCH: flat affect, AOx2-3 Objective Lab Results 11/19/24 05:12 11/19/24 05:12 Meds Allergies and Active Meds Allergies No Known Drug Allergies Allergy (Verified 11/17/24 08:25) Unknown Reaction Active Meds: Active Medications Generic Name Dose Route Start Last Admin Trade Name Freq PRN Reason Stop Dose Admin Aspirin 325 mg 11/18/24 09:00 11/20/24 09:44 Aspirin 325 Mg Tablet PO 11/18/25 08:59 325 mg DAILY CORBY Administration Atorvastatin Calcium 40 mg 11/17/24 21:00 11/19/24 20:46 Atorvastatin 40 Mg Tablet PO 11/17/25 20:59 Not Given QPM CORBY Folic Acid 1 mg 11/19/24 09:00 11/20/24 09:44 Folic Acid 1 Mg Tablet PO 11/19/25 08:59 1 mg DAILY CORBY Administration Haloperidol Lactate 5 mg 11/18/24 23:27 11/19/24 20:45 Haloperidol Lactate 5 Mg/Ml Vial IV-PUSH 11/18/25 16:42 5 mg Q6H PRN Administration Agitation Hydralazine HCl 10 mg 11/17/24 20:06 11/20/24 02:15 Hydralazine 20 Mg/Ml Vial IV-PUSH 11/17/25 20:05 10 mg Q4H PRN Administration Blood Pressure - High Levetiracetam 500 mg/ Dextrose 105 mls @ 420 mls/hr 11/17/24 21:00 11/20/24 10:03 IV 11/21/24 20:59 Infused BID CORBY Infusion Lisinopril 20 mg 11/18/24 16:50 11/20/24 09:44 Lisinopril 20 Mg Tablet PO 11/18/25 16:49 20 mg DAILY CORBY Administration Lorazepam 1 mg 11/18/24 23:27 Lorazepam 2 Mg/Ml Vial IV-PUSH 05/17/25 01:05 Q4H PRN Agitation Lorazepam 2 mg 11/18/24 23:27 11/19/24 20:14 Lorazepam 2 Mg/Ml Vial IV-PUSH 05/17/25 16:43 2 mg Q4H PRN Administration Agitation Multivitamins 1 tab 11/19/24 09:00 11/20/24 09:44 Multivitamin 1 Tab Tablet PO 11/19/25 08:59 1 tab DAILY CORBY Administration Sodium Chloride 0 ml 11/17/24 08:25 11/20/24 09:41 Sodium Chloride 0.9 % 10 Ml Syringe IV-PUSH 11/17/25 08:24 10 ml PRN PRN Administration Flush Sodium Chloride 10 ml 11/17/24 13:00 11/20/24 16:04 Sodium Chloride 0.9 % 10 Ml Syringe IV-PUSH 11/17/25 12:59 10 ml Q8H CORBY Administration Sodium Chloride 0 ml 11/17/24 14:00 11/20/24 16:04 Sodium Chloride 0.9 % 10 Ml Syringe IV-PUSH 11/17/25 13:59 Not Given QSHIFT CORBY Sodium Chloride 10 ml 11/18/24 01:06 11/19/24 20:14 Sodium Chloride 0.9 % 10 Ml Vial.Pf INJECTION 11/18/25 01:05 10 ml Q4H PRN Administration Ativan dilution Sodium Chloride 10 ml 11/18/24 16:44 Sodium Chloride 0.9 % 10 Ml Vial.Pf INJECTION 11/18/25 16:43 Q4H PRN Ativan dilution Thiamine HCl 100 mg 11/18/24 21:00 11/20/24 09:44 Thiamine 100 Mg Tablet PO 11/18/25 20:59 100 mg BID CORBY Administration A&P - Hospitalist Assessment/Plan (1) Altered mental status: (2) Seizure: Plan Documented By: Yamila Donald MD 11/20/24 1723 Signed By: 11/20/241920 [facility]01-08-2025 Progress note Author Yamila Donald [facility] Note Date/Time November 20, 2024 3: 02am [facility] [address] [place] [address] Hospitalist Progress Note Signed Patient: Aaron Olivarez MR#: [id number] : 1960 Acct:[id number] Age/Sex: 64 / M Adm Date: 5 Loc: Room: [address] [place] [address] Type: ADM IN Attending Dr: Yamila Donald MD Copies to: ~ Date of Service: 11/19/2024 Subjective Subjective Narrative: Assessment And Plan 64M PMH of COPD, multi substance abuse on Suboxone who was found having a seizure CVA - Ruled out Seizure The patient had been walking around and then was found on the ground seizing shortly thereafter. He was found with Left-sided weakness. He was evaluated in the ED and was found not a TPA candidate . the patient is afebrile and hemodynamically stable. there is no leukocytosis urinalysis didn?t show any pyuria or hematuria CXR shows No acute cardiopulmonary pathology. EKG shows NSR Tox screen positive for Amphetamine, benzodiazepine and THC Head and neck CTA shows No evidence of focal stenosis, aneurysmal dilatation, dissection or occlusion. No evidence of acute traumatic injury. The cervical spine and upper thoracic spine are grossly intact. ct brain shows no acute intracranial process , Chronic changes MRI shows moderate to severe chronic microvascular disease and central involutional changes negative for acute stroke or midline shift. encephalomalacia greatest left anterior frontal lobe and left gyrus rectus, motion degradation. EEG normal he likely has had generalized tonic-clonic seizure with postictal paralysis Neuro recommended to Continue levetiracetam 500 mg twice daily indefinitely and Outpatient neurology follow-up. HTN urgency Hydralazine prn Lisinopril Agitation The patient is aggressive and violent require restrain Kuldeepdon was not effective Ativan/Haldol as needed troponin elevation Troponin is marginally elevated he was evaluated by cardiology who do not believe he is having ACS INTERVAL HPI: As Above, Pt resting in bed. the patient remain not cooperative hewas agitated Chronic diseases: Unless mentioned Above, Essential home medications have been continued. DVT Px: Addressed Disposition: To be determined Plan of care Discussed with: the medical team, the patient L Exam Physical Exam Vital Signs: Temp Pulse Resp BP Pulse Ox O2 Del Method O2 Flow Rate 37.0 C 95 22 184/100 H 98 Room Air 2 11/19/24 12:00 11/19/24 19:00 11/19/24 19:00 11/19/24 19:00 11/19/24 19:00 11/19/24 19:00 11/18/24 00:00 Narrative: GEN: NAD, not Cooperative NECK: ? JVD, supple LUNGS: CTA CV: nl S1 S2; no M/R/Gts ABD: Soft, ND, NT, ? HSM EXT: No peripheral edema, No calf muscle tenderness NEURO: Limited exam, not fully cooperative; however move all her extremities; no overt focal neurological deficits. Pupils are equal and reactive to light PSYCH: flat affect, combative Objective Lab Results 11/19/24 05:12 11/19/24 05:12 Meds Allergies and Active Meds Allergies No Known Drug Allergies Allergy (Verified 11/17/24 08:25) Unknown Reaction Active Meds: Active Medications Generic Name Dose Route Start Last Admin Trade Name Freq PRN Reason Stop Dose Admin Aspirin 325 mg 11/18/24 09:00 11/19/24 09:19 Aspirin 325 Mg Tablet PO 11/18/25 08:59 Not Given DAILY CORBY Atorvastatin Calcium 40 mg 11/17/24 21:00 11/19/24 20:46 Atorvastatin 40 Mg Tablet PO 11/17/25 20:59 Not Given QPM CORBY Folic Acid 1 mg 11/19/24 09:00 11/19/24 09:19 Folic Acid 1 Mg Tablet PO 11/19/25 08:59 Not Given DAILY CORBY Haloperidol Lactate 5 mg 11/18/24 23:27 11/19/24 20:45 Haloperidol Lactate 5 Mg/Ml Vial IV-PUSH 11/18/25 16:42 5 mg Q6H PRN Administration Agitation Hydralazine HCl 10 mg 11/17/24 20:06 11/19/24 06:32 Hydralazine 20 Mg/Ml Vial IV-PUSH 11/17/25 20:05 10 mg Q4H PRN Administration Blood Pressure - High Levetiracetam 500 mg/ Dextrose 105 mls @ 420 mls/hr 11/17/24 21:00 11/19/24 20:46 IV 11/21/24 20:59 420 mls/hr BID CORBY Administration Lisinopril 20 mg 11/18/24 16:50 11/19/24 09:19 Lisinopril 20 Mg Tablet PO 11/18/25 16:49 Not Given DAILY CORBY Lorazepam 1 mg 11/18/24 23:27 Lorazepam 2 Mg/Ml Vial IV-PUSH 05/17/25 01:05 Q4H PRN Agitation Lorazepam 2 mg 11/18/24 23:27 11/19/24 20:14 Lorazepam 2 Mg/Ml Vial IV-PUSH 05/17/25 16:43 2 mg Q4H PRN Administration Agitation Multivitamins 1 tab 11/19/24 09:00 11/19/24 09:19 Multivitamin 1 Tab Tablet PO 11/19/25 08:59 Not Given DAILY CORBY Sodium Chloride 0 ml 11/17/24 08:25 11/19/24 00:38 Sodium Chloride 0.9 % 10 Ml Syringe IV-PUSH 11/17/25 08:24 10 ml PRN PRN Administration Flush Sodium Chloride 10 ml 11/17/24 13:00 11/19/24 20:46 Sodium Chloride 0.9 % 10 Ml Syringe IV-PUSH 11/17/25 12:59 10 ml Q8H CORBY Administration Sodium Chloride 0 ml 11/17/24 14:00 11/19/24 15:39 Sodium Chloride 0.9 % 10 Ml Syringe IV-PUSH 11/17/25 13:59 20 ml QSHIFT CORBY Administration Sodium Chloride 10 ml 11/18/24 01:06 11/19/24 20:14 Sodium Chloride 0.9 % 10 Ml Vial.Pf INJECTION 11/18/25 01:05 10 ml Q4H PRN Administration Ativan dilution Sodium Chloride 10 ml 11/18/24 16:44 Sodium Chloride 0.9 % 10 Ml Vial.Pf INJECTION 11/18/25 16:43 Q4H PRN Ativan dilution Thiamine HCl 100 mg 11/18/24 21:00 11/19/24 20:46 Thiamine 100 Mg Tablet PO 11/18/25 20:59 Not Given BID CORBY A&P - Hospitalist Assessment/Plan (1) Altered mental status: (2) Seizure: Plan Documented By: Yamila Donald MD 11/19/242100 Signed By: <Electronically signed by Yamila Donald MD> 11/20/24 0302 [facility] Work Phone: 1(589) 177-676501-08-2025 [place] [address] Hospitalist Progress Note Signed Patient: Aaron Olivarez MR#: [id number] : 1960 Acct:[id number] Age/Sex: 64 / M Adm Date: 5 Loc: Room: 6T8678-5 Type: ADM IN Attending Dr: Yamila Donald MD Copies to: ~ Date of Service: 11/19/2024 Subjective Subjective Narrative: Assessment And Plan 64M PMH of COPD, multi substance abuse on Suboxone who was found having a seizure CVA - Ruled out Seizure The patient had been walking around and then was found on the ground seizing shortly thereafter. Hewas found with Left-sided weakness. He was evaluated in the ED and was found not a TPA candidate . the patient is afebrile and hemodynamically stable. there is no leukocytosis urinalysis didn?t show any pyuria or hematuria CXR shows No acute cardiopulmonary pathology. EKG shows NSR Tox screen positive for Amphetamine, benzodiazepine and THC Head and neck CTA shows No evidence of focal stenosis, aneurysmal dilatation, dissection or occlusion. No evidence of acute traumatic injury. The cervical spine and upper thoracic spine are grossly intact. ct brain shows no acute intracranial process , Chronic changes MRI shows moderate to severe chronic microvascular disease and central involutional changes negative for acute stroke or midline shift. encephalomalacia greatest left anterior frontal lobe and left gyrus rectus, motion degradation. EEG normal he likely has had generalized tonic-clonic seizure with postictal paralysis Neuro recommended to Continue levetiracetam 500 mg twice daily indefinitely and Outpatient neurology follow-up. HTN urgency Hydralazine prn Lisinopril Agitation The patient is aggressive and violent require restrain Geodon was not effective Ativan/Haldol as needed troponin elevation Troponin is marginally elevated he was evaluated by cardiology who do not believe he is having ACS INTERVAL HPI: As Above, Pt resting in bed. the patient remain not cooperative hewas agitated Chronic diseases: Unless mentioned Above, Essential home medications have been continued. DVT Px: Addressed Disposition: To be determined Plan of care Discussed with: the medical team, the patient L Exam Physical Exam Vital Signs: Temp Pulse Resp BP Pulse Ox O2 Del Method O2 Flow Rate 37.0 C 95 22 184/100 H 98 Room Air 2 11/19/24 12:00 11/19/24 19:00 11/19/24 19:00 11/19/24 19:00 11/19/24 19:00 11/19/24 19:00 11/18/24 00:00 Narrative: GEN: NAD, not Cooperative NECK: ? JVD, supple LUNGS: CTA CV: nl S1 S2; no M/R/Gts ABD: Soft, ND, NT, ? HSM EXT: No peripheral edema, No calf muscle tenderness NEURO: Limited exam, not fully cooperative; however move all her extremities; no overt focal neurological deficits. Pupils are equal and reactive to light PSYCH: flat affect, combative Objective Lab Results 11/19/24 05:12 11/19/24 05:12 Meds Allergies and Active Meds Allergies No Known Drug Allergies Allergy (Verified 11/17/24 08:25) Unknown Reaction Active Meds: Active Medications Generic Name Dose Route Start Last Admin Trade Name Freq PRN Reason Stop Dose Admin Aspirin 325 mg 11/18/24 09:00 11/19/24 09:19 Aspirin 325 Mg Tablet PO 11/18/25 08:59 Not Given DAILY [facility] Atorvastatin Calcium 40 mg 11/17/24 21:00 11/19/24 20:46 Atorvastatin 40 Mg Tablet PO 11/17/25 20:59 Not Given QPM CORBY Folic Acid 1 mg 11/19/24 09:00 11/19/24 09:19 Folic Acid 1 Mg Tablet PO 11/19/25 08:59 Not Given DAILY CORBY Haloperidol Lactate 5 mg 11/18/24 23:27 11/19/24 20:45 Haloperidol Lactate 5 Mg/Ml Vial IV-PUSH 11/18/25 16:42 5 mg Q6H PRN Administration Agitation Hydralazine HCl 10 mg 11/17/24 20:06 11/19/24 06:32 Hydralazine 20 Mg/Ml Vial IV-PUSH 11/17/25 20:05 10 mg Q4H PRN Administration Blood Pressure - High Levetiracetam 500 mg/ Dextrose 105 mls @ 420 mls/hr 11/17/24 21:00 11/19/24 20:46 IV 11/21/24 20:59 420 mls/hr BID CORBY Administration Lisinopril 20 mg 11/18/24 16:50 11/19/24 09:19 Lisinopril 20 Mg Tablet PO 11/18/25 16:49 Not Given DAILY CORBY Lorazepam 1 mg 11/18/24 23:27 Lorazepam 2 Mg/Ml Vial IV-PUSH 05/17/25 01:05 Q4H PRN Agitation Lorazepam 2 mg 11/18/24 23:27 11/19/24 20:14 Lorazepam 2 Mg/Ml Vial IV-PUSH 05/17/25 16:43 2 mg Q4H PRN Administration Agitation Multivitamins 1 tab 11/19/24 09:00 11/19/24 09:19 Multivitamin 1 Tab Tablet PO 11/19/25 08:59 Not Given DAILY CORBY Sodium Chloride 0 ml 11/17/24 08:25 11/19/24 00:38 Sodium Chloride 0.9 % 10 Ml Syringe IV-PUSH 11/17/25 08:24 10 ml PRN PRN Administration Flush Sodium Chloride 10 ml 11/17/24 13:00 11/19/24 20:46 Sodium Chloride 0.9 % 10 Ml Syringe IV-PUSH 11/17/25 12:59 10 ml Q8H CORBY Administration Sodium Chloride 0 ml 11/17/24 14:00 11/19/24 15:39 Sodium Chloride 0.9 % 10 Ml Syringe IV-PUSH 11/17/25 13:59 20 ml QSHIFT CORBY Administration Sodium Chloride 10 ml 11/18/24 01:06 11/19/24 20:14 Sodium Chloride 0.9 % 10 Ml Vial.Pf INJECTION 11/18/25 01:05 10 ml Q4H PRN Administration Ativan dilution Sodium Chloride 10 ml 11/18/24 16:44 Sodium Chloride 0.9 % 10 Ml Vial.Pf INJECTION 11/18/25 16:43 Q4H PRN Ativan dilution Thiamine HCl 100 mg 11/18/24 21:00 11/19/24 20:46 Thiamine 100 Mg Tablet PO 11/18/25 20:59 Not Given BID CORBY A&P - Hospitalist Assessment/Plan (1) Altered mental status: (2) Seizure: Plan Documented By: Yamila Donald MD 11/19/24 1348 Signed By: 11/20/24 0302 [facility]01-07-2025 Progress note Author Neville Bush [facility] Note Date/Time November 19, 2024 6: 02pm [facility] [address] [place] [address] Neurology Progress Note Signed Patient: Aaron Olivarez MR#: [id number] : 1960 Acct:[id number] Age/Sex: 64 / M Adm Date: 5 Loc: Room: [address] [place] [address] Type: ADM IN Attending Dr: Yamila Donald MD Copies to: ~ Date of Service: 11/19/2024 Exam Physical Exam Vital Signs: Temp Pulse Resp BP Pulse Ox O2 Del Method O2 Flow Rate 98.6 F 95 18 176/96 H 98 Room Air 2 11/19/24 12:00 11/19/24 17:00 11/19/24 17:00 11/19/24 17:00 11/19/24 17:00 11/19/24 17:00 11/18/24 00:00 Objective Vital Signs Vital Signs: Vital Signs - 24 hr 11/18/24 19:00 11/18/24 20:00 11/18/24 20:00 Temperature 98.5 F Pulse Rate [Monitor] 66 85 Respiratory Rate 20 22 Blood Pressure [Left Arm] 189/101 H 214/102 H 02 Sat by Pulse Oximetry 98 Oxygen Delivery Method Room Air Room Air Room Air 11/18/24 21:00 11/18/24 22:00 11/18/24 23:00 Temperature Pulse Rate [Monitor] 85 84 88 Respiratory Rate 22 24 24 Blood Pressure [Left Arm] 197/97 H 210/100 H 194/95 H 02 Sat by Pulse Oximetry 98 98 Oxygen Delivery Method Room Air Room Air Room Air 11/19/24 00:00 11/19/24 01:00 11/19/24 02:00 Temperature 98.3 F Pulse Rate [Monitor] 91 93 83 Respiratory Rate 24 24 24 Blood Pressure [Left Arm] 211/98 H 180/101 H 195/93 H 02 Sat by Pulse Oximetry 93 L 96 Oxygen Delivery Method Room Air Room Air Room Air 11/19/24 03:00 11/19/24 04:00 11/19/24 05:00 Temperature 98.7 F Pulse Rate [Monitor] 93 86 90 Respiratory Rate 22 24 20 Blood Pressure [Left Arm] 216/98 H 181/87 H 178/91 H 02 Sat by Pulse Oximetry 96 96 97 Oxygen Delivery Method Room Air Room Air Room Air 11/19/24 06:00 11/19/24 08:00 11/19/24 09:00 Temperature 98.8 F Pulse Rate [Monitor] 97 89 Respiratory Rate 20 26 H Blood Pressure [Left Arm] 202/94 H 207/110 H 02 Sat by Pulse Oximetry 97 95 Oxygen Delivery Method Room Air Room Air Room Air 11/19/24 10:00 11/19/24 12:00 11/19/24 15:00 Temperature 98.6 F Pulse Rate [Monitor] 85 92 102 H Respiratory Rate 20 26 H 20 Blood Pressure [Left Arm] 169/95 H 173/93 H 186/95 H 02 Sat by Pulse Oximetry 98 98 99 Oxygen Delivery Method Room Air Room Air Room Air 11/19/24 16:00 11/19/24 17:00 Temperature Pulse Rate [Monitor] 100 95 Respiratory Rate 20 18 Blood Pressure [Left Arm] 165/99 H 176/96 H 02 Sat by Pulse Oximetry 99 98 Oxygen Delivery Method Room Air Room Air Labs 11/19/24 05:12 11/19/24 05:12 Assessment/Plan (1) Seizure: Plan CONSULT REASON: Seizure, left hemiparesis INTERIM: Supine in bed, sleeping. Did not want to participate in the interview or the examination. EXAMINATION: Supine in bed. Not in any distress. Opens eyes to voice. Very reluctant to participate in the examination. He is able to hold both of his upper extremities off the bed without any drift. Lower extremities without drift as well. Attention seems impaired. Gaze appears conjugate. Speech sounds nondysarthric and fluent. Sensation in all limbs seems intact. DATA REVIEW: -Routine EEG borderline slow but overall unremarkable -Head CT nonacute -CTA of head and neck without concerning findings -MRI brain November 19, 2024 shows no acute findings, moderate to severe chronic microvascular changes, some encephalomalacia in the left anterior frontal lobe ASSESSMENT: It sounds like he had a generalized tonic-clonic seizure with postictal paralysis (left hemiparesis). He has some encephalomalacia in the left frontal lobe that involves some cortex so I will make the assumption that his seizure isrelated to that. Unclear if the seizure could be somehow related to alcohol use/disuse. His routine EEG was borderline slow but overall unremarkable. PLAN: Continue levetiracetam 500 mg twice daily indefinitely. No other recommendations at this time. Outpatient neurology follow-up. Documented By: Neville Bush DO 11/19/241758 Signed By: <Electronically signed by Neville Bush DO> 11/19/24 5710 [facility] Work Phone: 1(271) 881-707701-07-2025 [place] [id number] Neurology Progress Note Signed Patient: Aaron Olivarez MR#: [id number] : 1960 Acct:[id number] Age/Sex: 64 / M Adm Date: 5 Loc: Room: [address] [place] [address] Type: ADM IN Attending Dr: Yamila Donald MD Copies to: ~ Date of Service: 11/19/2024 Exam Physical Exam Vital Signs: Temp Pulse Resp BP Pulse Ox O2 Del Method O2 Flow Rate 98.6 F 95 18 176/96 H 98 Room Air 2 11/19/24 12:00 11/19/24 17:00 11/19/24 17:00 11/19/24 17:00 11/19/24 17:00 11/19/24 17:00 11/18/24 00:00 Objective Vital Signs Vital Signs: Vital Signs - 24 hr 11/18/24 19:00 11/18/24 20:00 11/18/24 20:00 Temperature 98.5 F Pulse Rate [Monitor] 66 85 Respiratory Rate 20 22 Blood Pressure [Left Arm] 189/101 H 214/102 H 02 Sat by Pulse Oximetry 98 Oxygen Delivery Method Room Air Room Air Room Air 11/18/24 21:00 11/18/24 22:00 11/18/24 23:00 Temperature Pulse Rate [Monitor] 85 84 88 Respiratory Rate 22 24 24 Blood Pressure [Left Arm] 197/97 H 210/100 H 194/95 H 02 Sat by Pulse Oximetry 98 98 Oxygen Delivery Method Room Air Room Air Room Air 11/19/24 00:00 11/19/24 01:00 11/19/24 02:00 Temperature 98.3 F Pulse Rate [Monitor] 91 93 83 Respiratory Rate 24 24 24 Blood Pressure [Left Arm] 211/98 H 180/101 H 195/93 H 02 Sat by Pulse Oximetry 93 L 96 Oxygen Delivery Method Room Air Room Air Room Air 11/19/24 03:00 11/19/24 04:00 11/19/24 05:00 Temperature 98.7 F Pulse Rate [Monitor] 93 86 90 Respiratory Rate 22 24 20 Blood Pressure [Left Arm] 216/98 H 181/87 H 178/91 H 02 Sat by Pulse Oximetry 96 96 97 Oxygen Delivery Method Room Air Room Air Room Air 11/19/24 06:00 11/19/24 08:00 11/19/24 09:00 Temperature 98.8 F Pulse Rate [Monitor] 97 89 Respiratory Rate 20 26 H Blood Pressure [Left Arm] 202/94 H 207/110 H 02 Sat by Pulse Oximetry 97 95 Oxygen Delivery Method Room Air Room Air Room Air 11/19/24 10:00 11/19/24 12:00 11/19/24 15:00 Temperature 98.6 F Pulse Rate [Monitor] 85 92 102 H Respiratory Rate 20 26 H 20 Blood Pressure [Left Arm] 169/95 H 173/93 H 186/95 H 02 Sat by Pulse Oximetry 98 98 99 Oxygen Delivery Method Room Air Room Air Room Air 11/19/24 16:00 11/19/24 17:00 Temperature Pulse Rate [Monitor] 100 95 Respiratory Rate 20 18 Blood Pressure [Left Arm] 165/99 H 176/96 H 02 Sat by Pulse Oximetry 99 98 Oxygen Delivery Method Room Air Room Air Labs 11/19/24 05:12 11/19/24 05:12 Assessment/Plan (1) Seizure: Plan CONSULT REASON: Seizure, left hemiparesis INTERIM: Supine in bed, sleeping. Did not want to participate in the interview or the examination. EXAMINATION: Supine in bed. Not in any distress. Opens eyes to voice. Very reluctant to participate in the examination. He is able to hold both of his upper extremities off the bed without any drift. Lower extremities without drift as well. Attention seems impaired. Gaze appears conjugate. Speech sounds nondysarthric and fluent. Sensation in all limbs seems intact. DATA REVIEW: -Routine EEG borderline slow but overall unremarkable -Head CT nonacute -CTA of head and neck without concerning findings -MRI brain November 19, 2024 shows no acute findings, moderate to severe chronic microvascular changes, some encephalomalacia in the left anterior frontal lobe ASSESSMENT: It sounds like he had a generalized tonic-clonic seizure with postictal paralysis (left hemiparesis). He has some encephalomalacia in the left frontal lobe that involves some cortex so I will make the assumption that his seizure isrelated to that. Unclear if the seizure could be somehow related to alcohol use/disuse. His routine EEG was borderline slow but overall unremarkable. PLAN: Continue levetiracetam 500 mg twice daily indefinitely. No other recommendations at this time. Outpatient neurology follow-up. Documented By: Neville Bush DO 11/19/24 1759 Signed By: 11/19/24 1802 [facility]01-07-2025 Progress note Author Yamila Donald [facility] Note Date/Time November 19, 2024 3: 10am [facility] [address] [place] [address] Hospitalist Progress Note Signed Patient: Aaron Olivarez MR#: [id number] : 1960 Acct:[id number] Age/Sex: 64 / M Adm Date: 5 Loc: Room: [address] [place] [address] Type: ADM IN Attending Dr: Yamila Donald MD Copies to: ~ Date of Service: 11/18/2024 Subjective Subjective Narrative: Assessment And Plan 64M PMH of COPD, multi substance abuse on Suboxone who was found having a seizure Rule out CVA Seizure The patient had been walking around and then was found on the ground seizing shortly thereafter. He was found with Left-sided weakness. He was evaluated in the ED and was found not a TPA candidate . the patient is likely having a post tactile paralysis. the patient is afebrile and hemodynamically stable. there is no leukocytosis urinalysis didn?t show any pyuria or hematuria CXR shows No acute cardiopulmonary pathology. Tox screen positive for Amphetamine, benzodiazepine and THC Head and neck CTA shows No evidence of focal stenosis, aneurysmal dilatation, dissection or occlusion. No evidence of acute traumatic injury. The cervical spine and upper thoracic spine are grossly intact. ct brain shows no acute intracranial process , Chronic changes EKG shows NSR Seizure precaution Keppra Agree with EEG Neuro consultation HTN urgency Hydralazine prn Start Lisinopril Agitation The patient is aggressive and violent require restrain Geodon was not effective Given his history of alcohol use will give Ativan as needed troponin elevation Troponin is marginally elevated he was evaluated by cardiology who do not believe he is having ACS INTERVAL HPI: As Above, Pt resting in bed. not cooperative repot pain all over. aggressive doesn't care to answer any questions Chronic diseases: Unless mentioned Above, Essential home medications have been continued. DVT Px: Addressed Disposition: To be determined Plan of care Discussed with: the medical team, the patient L Exam Physical Exam Vital Signs: Temp Pulse Resp BP Pulse Ox O2 Del Method O2 Flow Rate 37.0 C 62 20 212/100 H 98 Room Air 2 11/18/24 16:00 11/18/24 16:11/18/24 16:11/18/24 16:11/18/24 16:11/18/24 16:11/18/24 00:00 Narrative: GEN: NAD, not Cooperative NECK: ? JVD, supple LUNGS: CTA CV: nl S1 S2; no M/R/Gts ABD: Soft, ND, NT, ? HSM EXT: No peripheral edema, No calf muscle tenderness NEURO: Limited exam, not fully cooperative; however move all her extremities; no overt focal neurological deficits. Pupils are equal and reactive to light PSYCH: flat affect, combative Objective Lab Results 11/18/24 06:39 11/18/24 06:39 Meds Allergies and Active Meds Allergies No Known Drug Allergies Allergy (Verified 11/17/24 08:25) Unknown Reaction Active Meds: Active Medications Generic Name Dose Route Start Last Admin Trade Name John PRN Reason Stop Dose Admin Aspirin 325 mg 11/18/24 09:00 11/18/24 09:09 Aspirin 325 Mg Tablet PO 11/18/25 08:59 Not Given DAILY [facility] Atorvastatin Calcium 40 mg 11/17/24 21:00 11/17/24 22:28 Atorvastatin 40 Mg Tablet PO 11/17/25 20:59 Not Given QPM CORBY Haloperidol Lactate 2 mg 11/18/24 16:43 Haloperidol Lactate 5 Mg/Ml Vial IV-PUSH 11/18/25 16:42 Q6H PRN Agitation Hydralazine HCl 10 mg 11/17/24 20:06 11/18/24 16:18 Hydralazine 20 Mg/Ml Vial IV-PUSH 11/17/25 20:05 10 mg Q4H PRN Administration Blood Pressure - High Lactated Ringer's 1,000 mls @ 70 mls/hr 11/17/24 13:00 11/18/24 07:57 Lactated Ringers IV 11/18/24 17:34 70 mls/hr .[id number] CORBY Administration Levetiracetam 500 mg/ Dextrose 105 mls @ 420 mls/hr 11/17/24 21:00 11/18/24 10:09 IV 11/21/24 20:59 Infused BID CORBY Infusion Lisinopril 20 mg 11/18/24 16:50 Lisinopril 20 Mg Tablet PO 11/18/25 16:49 DAILY [facility] Lorazepam 0.5 mg 11/18/24 01:06 Lorazepam 2 Mg/Ml Vial IV-PUSH 05/17/25 01:05 Q6H PRN Agitation Lorazepam 2 mg 11/18/24 17:00 Lorazepam 2 Mg/Ml Vial IV-PUSH 11/18/24 17:01 ONCE ONE Lorazepam 1 mg 11/18/24 16:44 Lorazepam 2 Mg/Ml Vial IV-PUSH 05/17/25 16:43 Q6H PRN Agitation Sodium Chloride 0 ml 11/17/24 08:25 11/17/24 10:31 Sodium Chloride 0.9 % 10 Ml Syringe IV-PUSH 11/17/25 08:24 10 ml PRN PRN Administration Flush Sodium Chloride 10 ml 11/17/24 13:00 11/18/24 13:05 Sodium Chloride 0.9 % 10 Ml Syringe IV-PUSH 11/17/25 12:59 Not Given Q8H CORBY Sodium Chloride 0 ml 11/17/24 14:00 11/18/24 16:18 Sodium Chloride 0.9 % 10 Ml Syringe IV-PUSH 11/17/25 13:59 20 ml QSHIFT CORBY Administration Sodium Chloride 10 ml 11/18/24 01:06 Sodium Chloride 0.9 % 10 Ml Vial.Pf INJECTION 11/18/25 01:05 Q4H PRN Ativan dilution Sodium Chloride 10 ml 11/18/24 16:44 Sodium Chloride 0.9 % 10 Ml Vial.Pf INJECTION 11/18/25 16:43 Q4H PRN Ativan dilution A&P - Hospitalist Assessment/Plan (1) Altered mental status: (2) Seizure: Plan Documented By: Yamila Donald MD 11/18/24 1646 Signed By: <Electronically signed by Yamila Donald MD> 11/19/24 0310 [facility] Work Phone: 1(396) 751-694201-07-2025 [place] [address] Hospitalist Progress Note Signed Patient: Aaron Olivarez MR#: [id number] : 1960 Acct:[id number] Age/Sex: 64 / M Adm Date: 5 Loc: Room: [address] [place] [address] Type: ADM IN Attending Dr: Yamila Donald MD Copies to: ~ Date of Service: 11/18/2024 Subjective Subjective Narrative: Assessment And Plan 64M PMH of COPD, multi substance abuse on Suboxone who was found having a seizure Rule out CVA Seizure The patient had been walking around and then was found on the ground seizing shortly thereafter. Hewas found with Left-sided weakness. He was evaluated in the ED and was found not a TPA candidate . the patient is likely having a post tactile paralysis. the patient is afebrile and hemodynamically stable. there is no leukocytosis urinalysis didn?t show any pyuria or hematuria CXR shows No acute cardiopulmonary pathology. Tox screen positive for Amphetamine, benzodiazepine and THC Head and neck CTA shows No evidence of focal stenosis, aneurysmal dilatation, dissection or occlusion. No evidence of acute traumatic injury. The cervical spine and upper thoracic spine are grossly intact. ct brain shows no acute intracranial process , Chronic changes EKG shows NSR Seizure precaution Keppra Agree with EEG Neuro consultation HTN urgency Hydralazine prn Start Lisinopril Agitation The patient is aggressive and violent require restrain Geodon was not effective Given his history of alcohol use will give Ativan as needed troponin elevation Troponin is marginally elevated he was evaluated by cardiology who do not believe he is having ACS INTERVAL HPI: As Above, Pt resting in bed. not cooperative repot pain all over. aggressive doesn't care to answer any questions Chronic diseases: Unless mentioned Above, Essential home medications have been continued. DVT Px: Addressed Disposition: To be determined Plan of care Discussed with: the medical team, the patient L Exam Physical Exam Vital Signs: Temp Pulse Resp BP Pulse Ox O2 Del Method O2 Flow Rate 37.0 C 62 20 212/100 H 98 Room Air 2 11/18/24 16:00 11/18/24 16:00 11/18/24 16:00 11/18/24 16:00 11/18/24 16:00 11/18/24 16:00 11/18/24 00:00 Narrative: GEN: NAD, not Cooperative NECK: ? JVD, supple LUNGS: CTA CV: nl S1 S2; no M/R/Gts ABD: Soft, ND, NT, ? HSM EXT: No peripheral edema, No calf muscle tenderness NEURO: Limited exam, not fully cooperative; however move all her extremities; no overt focal neurological deficits. Pupils are equal and reactive to light PSYCH: flat affect, combative Objective Lab Results 11/18/24 06:39 11/18/24 06:39 Meds Allergies and Active Meds Allergies No Known Drug Allergies Allergy (Verified 11/17/24 08:25) Unknown Reaction Active Meds: Active Medications Generic Name Dose Route Start Last Admin Trade Name Freq PRN Reason Stop Dose Admin Aspirin 325 mg 11/18/24 09:00 11/18/24 09:09 Aspirin 325 Mg Tablet PO 11/18/25 08:59 Not Given DAILY [facility] Atorvastatin Calcium 40 mg 11/17/24 21:00 11/17/24 22:28 Atorvastatin 40 Mg Tablet PO 11/17/25 20:59 Not Given QPM [facility] Haloperidol Lactate 2 mg 11/18/24 16:43 Haloperidol Lactate 5 Mg/Ml Vial IV-PUSH 11/18/25 16:42 Q6H PRN Agitation Hydralazine HCl 10 mg 11/17/24 20:06 11/18/24 16:18 Hydralazine 20 Mg/Ml Vial IV-PUSH 11/17/25 20:05 10 mg Q4H PRN Administration Blood Pressure - High Lactated Ringer's 1,000 mls @ 70 mls/hr 11/17/24 13:00 11/18/24 07:57 Lactated Ringers IV 11/18/24 17:34 70 mls/hr .[id number] CORBY Administration Levetiracetam 500 mg/ Dextrose 105 mls @ 420 mls/hr 11/17/24 21:00 11/18/24 10:09 IV 11/21/24 20:59 Infused BID [facility] Infusion Lisinopril 20 mg 11/18/24 16:50 Lisinopril 20 Mg Tablet PO 11/18/25 16:49 DAILY [facility] Lorazepam 0.5 mg 11/18/24 01:06 Lorazepam 2 Mg/Ml Vial IV-PUSH 05/17/25 01:05 Q6H PRN Agitation Lorazepam 2 mg 11/18/24 17:00 Lorazepam 2 Mg/Ml Vial IV-PUSH 11/18/24 17:01 ONCE ONE Lorazepam 1 mg 11/18/24 16:44 Lorazepam 2 Mg/Ml Vial IV-PUSH 05/17/25 16:43 Q6H PRN Agitation Sodium Chloride 0 ml 11/17/24 08:25 11/17/24 10:31 Sodium Chloride 0.9 % 10 Ml Syringe IV-PUSH 11/17/25 08:24 10 ml PRN PRN Administration Flush Sodium Chloride 10 ml 11/17/24 13:00 11/18/24 13:05 Sodium Chloride 0.9 % 10 Ml Syringe IV-PUSH 11/17/25 12:59 Not Given Q8H CORBY Sodium Chloride 0 ml 11/17/24 14:00 11/18/24 16:18 Sodium Chloride 0.9 % 10 Ml Syringe IV-PUSH 11/17/25 13:59 20 ml QSHIFT CORBY Administration Sodium Chloride 10 ml 11/18/24 01:06 Sodium Chloride 0.9 % 10 Ml Vial.Pf INJECTION 11/18/25 01:05 Q4H PRN Ativan dilution Sodium Chloride 10 ml 11/18/24 16:44 Sodium Chloride 0.9 % 10 Ml Vial.Pf INJECTION 11/18/25 16:43 Q4H PRN Ativan dilution A&P - Hospitalist Assessment/Plan (1) Altered mental status: (2) Seizure: Plan Documented By: Yamila Donald MD 11/18/24 1646 Signed By: 11/19/24 0310 [facility]01-06-2025 Consult note Author Neville Bush [facility] Note Date/Time November 18, 2024 5: 44pm [facility] [address] [place] [address] Neurology Consult Note Signed Patient: Aaron Olivarez MR#: [id number] : 1960 Acct:[id number] Age/Sex: 64 / M Adm Date: 5 Loc: Room: [address] [place] [address] Type: ADM IN Attending Dr: Yamila Donald MD Copies to: DO Sulaiman Mosquera DO Marwan Wassouf, MD~ HPI Consult Date: 11/18/24 Commercial Litigation Associate: Neville Bush DO [facility] Medical History Heavy smoker Heroin use H/O ETOH abuse COPD (chronic obstructive pulmonary disease) Social History Smoking Status: Unknown if ever smoked Substance Use Type: Marijuana, Heroin and Methamphetamine Social History Comments: Moved from [place] to [place] to live with sonLamin. Meds Medications and Allergies Allergies No Known Drug Allergies Allergy (Verified 11/17/24 08:25) Unknown Reaction Home Medications albuterol 90 mcg/actuation [...] Ox O2 Del Method O2 Flow Rate 98.6 F 62 20 212/100 H 98 Room Air 2 11/18/24 16:00 11/18/24 16:00 11/18/24 16:00 11/18/24 16:00 11/18/24 16:00 11/18/24 16:00 11/18/24 00:00 Results - Neuro Laboratory Findings 11/18/24 06:39 11/18/24 06:39 Lab Results: ESR 2 mm/hr (0-19) 11/17/24 08:28 Diagnostic Findings Imaging/Impressions: ITS Impressions Head CT 11/17/24 08:25 IMPRESSION: No acute intracranial pathology. Chronic changes are noted as above. Findings were discussed with Dr. yanes at 8:41 AM on 11/17/2024 Impression dictated by: Dung Chakraborty M.D.11/17/2024 8:43 AM Dictation Location: [place] [address] Head CTA 11/17/24 08:25 IMPRESSION: No evidence of focal stenosis, aneurysmal dilatation, dissection or occlusion. No evidence of acute traumatic injury. The cervical spine and upper thoracic spine are grossly intact. Impression dictated by: Dung Chakraborty M.D.11/17/2024 8:59 AM Dictation Location: [facility]-- Chest X-Ray 11/17/24 12:57 IMPRESSION: No acute cardiopulmonary pathology. Impression dictated by: Dung Chakraborty M.D.11/17/2024 1:26 PM Dictation Location: [facility]17 Assessment/Plan (1) Seizure: Plan CONSULT REASON: Seizure, left hemiparesis HPI: He was seen in the emergency department the morning of November 17, 2024 after being seen having a seizure on the ground reportedly. He then exhibited weakness in the left upper and left lower extremity that was continually gradually improving. There was concern for postictal paralysis. The plan was submitted to the ICU. He has been combative and requiring restraints. EXAMINATION: Supine in bed. Not in any distress. Opens eyes to voice. Very reluctant to participate in the examination. He is able to hold both of his upper extremities off the bed without any drift. Lower extremities without drift as well. Attention seems impaired. Gaze appears conjugate. Speech sounds nondysarthric and fluent. Sensation in all limbs seems intact. DATA REVIEW: -Routine EEG borderline slow but overall unremarkable -Head CT nonacute -CTA of head and neck without concerning findings ASSESSMENT: It sounds like he had a generalized tonic-clonic seizure with postictal paralysis (left hemiparesis). Unclear if the seizure could be somehow related to alcohol use/disuse. His routine EEG does not raise suspicion for an underlying epilepsy disorder or focal brain lesion. Awaiting MR imaging of the brain. PLAN: MRI brain with and without contrast is pending He has been placed on Keppra, currently at 500 mg IV twice daily Documented By: Neville Bush DO 11/18/24 1738 Signed By: <Electronically signed by Neville Bush DO> 11/18/24 1740 [facility] Work Phone: 1(401) 898-640401-06-2025 Consult note Author Julito Mosley [facility] Note Date/Time November 18, 2024 4: 27pm [facility] [address] [place] [address] Cardiology Consult Note Signed Patient: Aaron Olivarez MR#: [id number] : 1960 Acct:[id number] Age/Sex: 64 / M Adm Date: 5 Loc: Room: [address] [place] [address] Type: ADM INOo Attending Dr: Yamila Donald MD Copies to: DO Julito Barnard MD Marwan Wassouf, MD~ Cardiology HPI History of Present Illness Consult Date: 11/18/24 Reason for Consult: T wave inversions HPI: Mr. Olivarez is a 64 year old male who is admitted for seizure episode. On presentation to the ER he was also thought to have left-sided weakness and stroke protocol was activated. CTA head and neck showed no obstructive thrombus therefore he was not sent for thrombectomy. He was outside the window for thrombolytics. EKG was noted to have T wave inversions in the lateral leads. These are new from prior EKG performed in April 2024. He has no chest pain or shortness of breath. He denies any problem with his heart. Troponin is marginally elevated 21--36--26. He is rather angry and states that all he wants to do is go use the bathroom. Review of Systems Review of Systems All other systems reviewed & are negative unless noted below or in HPI [facility] Medical History Heavy smoker Heroin use H/O ETOH abuse COPD (chronic obstructive pulmonary disease) Social History Smoking Status: Unknown if ever smoked Substance Use Type: Marijuana, Heroin and Methamphetamine Social History Comments: Moved from [place] to [place] to live with son, Lamin. Meds Medications and Allergies Allergies No Known Drug Allergies Allergy (Verified 11/17/24 08:25) Unknown Reaction Home Medications albuterol 90 mcg/actuation [...] Ox O2 Del Method O2 Flow Rate 98 F 77 20 179/103 H 98 Room Air 2 11/18/24 14:26 11/18/24 14:26 11/18/24 14:26 11/18/24 14:26 11/18/24 14:11/18/24 14:11/18/24 00:00 Narrative: Physical Exam: General: NAD, awake, alert, beligerent and shouting Head, Eyes: NC/AT, EOMI Lungs: Good air entry; No crackles Heart: S1S2 normal, Regular rhythm, No murmurs Extremities: No edema. Abdomen: Soft, non-tender, non-distended. Neuro: CN grossly intact, No focal deficits. Psych: Normal mood & affect. Results - Cardiology Labs 11/18/24 06:39 11/18/24 06:39 Lab results: Cardiac Enzymes 11/18/24 Range/Units 06:39 AST 16 (13-39) U/L CBC 11/18/24 Range/Units 06:39 RBC 5.01 (3.90-5.60) x10E6/uL Hgb 14.6 (13.0-17.0) g/dL Hct 43.0 (38.8-50.0) % Plt Count 216 (150-450) x10E3/uL Neut # (Auto) 4.7 (1.8-7.7) x10E3/uL Lymph # (Auto) 1.4 (1.00-4.8) x10E3/uL [place] # (Auto) 0.6 (0.0-0.8) x10E3/uL Eos # (Auto) 0.0 (0.0-0.45) x10E3/uL Baso # (Auto) 0.0 (0.0-0.2) x10E3/uL Comprehensive Metabolic Panel 11/18/24 Range/Units 06:39 Sodium 142 (136-145) mmol/L Potassium 4.1 (3.5-5.1) mmol/L Chloride 105 (98-107) mmol/L Carbon Dioxide 31.4 H (21.0-31.0) mmol/L BUN 22 (7-25) mg/dL Creatinine 1.10 (0.70-1.30) mg/dL Glucose 113 H (70-100) mg/dL Calcium 9.4 (8.6-10.3) mg/dL AST 16 (13-39) U/L ALT 10 (7-52) U/L Alkaline Phosphatase 93 (34-104) U/L Total Protein 6.3 L (6.4-8.9) gm/dL Albumin 3.9 (3.5-5.7) gm/dL Intake and Output 11/18/24 11/18/24 11/18/24 06:59 14:59 22:59 Intake Total 1000 / 1105 105 / 105 Output Total 500 / 500 Balance 1000 / 1104 -395 / -395 Intake: IV 1000 / 1105 105 / 105 Lactated Ringers 1,000 ml @ 70 1000 / 1000 mls/hr IV .[id number] [facility] Rx#: [id number] levETIRAcetam 500 mg In 105 / 105 Dextrose 5 % in Water 100 ml @ 420 mls/hr IV BID [facility]BY Rx#: [id number] Output: Urine 500 / 500 Other: # Bowel Movements 1 Weight 78.7 kg Patient Weight 11/19/24 06:59 Weight 78.7 kg Lab 11/17/24 08:28 PT 11.9 INR 1.0 APTT 22.3 L A&P - Cardiology (1) Acute CVA (cerebrovascular accident): Code(s): I63.9 - Cerebral infarction, unspecified (2) Seizure: Code(s): R56.9 - Unspecified convulsions (3) Altered mental status: Code(s): R41.82 - Altered mental status, unspecified (4) T wave inversion in EKG: Code(s): R94.31 - Abnormal electrocardiogram [ECG] [EKG] Plan # Seizure episode - this was a witnessed episode. # Left-sided weakness on admission concerning for stroke vs postictal paralysis. # AMS - he is beligerent and shouting. May be due to above. # Non-ACS troponin elevation # Hypkalemia and hypomagnesemia # Other: Alcohol abuse, hearing use, heavy smoker, COPD. Echo 05/02/2024 ? EF 60 to 65%, mild LVH, no valve abnormalities. EKG 11/17/2024 ? sinus rhythm, lateral TWI. Echo 11/18/2024 (preliminary) ? EF 55-60%, normal diastolic function, mild LVH, poor quality. - Troponin is only marginally elevated 21--36--26. He has no chest pain, shortness of breath or associated symptoms. EKG changes and mild troponin may be due to seizure/stroke. I do not believe he is having ACS, neither does he have any cardiac symptoms, and his echo today is normal. - Continue workup of his neurologic symptoms. - Continue correction of electrolytes to reduce ectopy. - Will see as needed. He will follow-up with me as outpatient (outside of the 90day stroke window) at which point we may proceed to stress testing if he ever develops any symptoms in the future. Documented By: Julito Mosley MD 05/07 1612 Signed By: <Electronically signed by Julito Mosley MD> 11/18/24 1627 [facility] Work Phone: 1(156) 190-402301-06-2025 [place] [address] Neurology Consult Note Signed Patient: Aaron Olivarez MR#: [id number] : 1960 Acct:[id number] Age/Sex: 64 / M Adm Date: 5 Loc: Room: [address] [place] [address] Type: ADM IN Attending Dr: Yamila Donald MD Copies to: DO Sulaiman Mosquera DO Marwan Wassouf, MD~ HPI Consult Date: 11/18/24 Commercial Litigation Associate: Neville Bush DO [facility] Medical History Heavy smoker Heroin use H/O ETOH abuse COPD (chronic obstructive pulmonary disease) Social History Smoking Status: Unknown if ever smoked Substance Use Type: Marijuana, Heroin and Methamphetamine Social History Comments: Moved from [place] to [place] to live with sonLamin. Meds Medications and Allergies Allergies No Known Drug Allergies Allergy (Verified 11/17/24 08:25) Unknown Reaction Home Medications albuterol 90 mcg/actuation [...] Instructions inhalation Q1H PRN to stop smoking 05/02/24[History Confirmed 05/02/24] levofloxacin 750 mg tablet 750 mg PO DAILY #5 tabs 05/06/24 [Rx] methylprednisolone 16 mg tablet (Medrol) 16 mg PO DAILY 5 days #5 tabs 05/06/24 [Rx] Exam Physical Exam Vital Signs: Temp Pulse Resp BP Pulse Ox O2 Del Method O2 Flow Rate 98.6 F 62 20 212/100 H 98 Room Air 2 11/18/24 16:00 11/18/24 16:00 11/18/24 16:00 11/18/24 16:00 11/18/24 16:00 11/18/24 16:00 11/18/24 00:00 Results - Neuro Laboratory Findings 11/18/24 06:39 11/18/24 06:39 Lab Results: ESR 2 mm/hr (0-19) 11/17/24 08:28 Diagnostic Findings Imaging/Impressions: ITS Impressions Head CT 11/17/24 08:25 IMPRESSION: No acute intracranial pathology. Chronic changes are noted as above. Findings were discussed with Dr. yanes at 8:41 AM on 11/17/2024 Impression dictated by: Dung Chakraborty M.D.11/17/2024 8:43 AM Dictation Location: [facility]- Head CTA 11/17/24 08:25 IMPRESSION: No evidence of focal stenosis, aneurysmal dilatation, dissection or occlusion. No evidence of acute traumatic injury. The cervical spine and upper thoracic spine are grossly intact. Impression dictated by: Dung Chakraborty M.D.11/17/2024 8:59 AM Dictation Location: [place] [address] Chest X-Ray 11/17/24 12:57 IMPRESSION: No acute cardiopulmonary pathology. Impression dictated by: Dung Chakraborty M.D.11/17/2024 1:26 PM Dictation Location: [facility]-- Assessment/Plan (1) Seizure: Plan CONSULT REASON: Seizure, left hemiparesis HPI: He was seen in the emergency department the morning of November 17, 2024 after being seen having a seizure on the ground reportedly. He then exhibited weakness in the left upper and left lower extremity that was continually gradually improving. There was concern for postictal paralysis. The plan was submitted to the ICU. He has been combative and requiring restraints. EXAMINATION: Supine in bed. Not in any distress. Opens eyes to voice. Very reluctant to participate in the examination. He is able to hold both of his upper extremities off the bed without any drift. Lower extremities without drift as well. Attention seems impaired. Gaze appears conjugate. Speech sounds nondysarthric and fluent. Sensation in all limbs seems intact. DATA REVIEW: -Routine EEG borderline slow but overall unremarkable -Head CT nonacute -CTA of head and neck without concerning findings ASSESSMENT: It sounds like he had a generalized tonic-clonic seizure with postictal paralysis (left hemiparesis). Unclear if the seizure could be somehow related to alcohol use/disuse. His routine EEG does not raise suspicion for an underlying epilepsy disorder or focal brain lesion. Awaiting MR imaging of thebrain. PLAN: MRI brain with and without contrast is pending He has been placed on Keppra, currently at 500 mg IV twice daily Documented By: Neville Bush DO 11/18/241737 Signed By: 11/18/24 1744 [facility]01-06-2025 [place] [address] Cardiology Consult Note Signed Patient: Aaron Olivarez MR#: [id number] : 1960 Acct:[id number] Age/Sex: 64 / M Adm Date: 5 Loc: Room: [address] [place] [address] Type: ADM INOo Attending Dr: Yamila Donald MD Copies to: DO Julito Barnard MD Marwan Wassouf, MD~ Cardiology HPI History of Present Illness Consult Date: 11/18/24 Reason for Consult: T wave inversions HPI: Mr. Olivarez is a 64 year old male who is admitted for seizure episode. On presentation to the ER he was also thought to have left-sided weakness and stroke protocol was activated. CTA head and neck showed no obstructive thrombus therefore he was not sent for thrombectomy. He was outside the window for thrombolytics. EKG was noted to have T wave inversions in the lateral leads. These are new from prior EKG performed in April 2024. He has no chest pain or shortness of breath. He denies any problem with his heart. Troponin is marginally elevated 21--36--26. He is rather angry and states that all hewants to do is go use the bathroom. Review of Systems Review of Systems All other systems reviewed & are negative unless noted below or in HPI [facility] Medical History Heavy smoker Heroin use H/O ETOH abuse COPD (chronic obstructive pulmonary disease) Social History Smoking Status: Unknown if ever smoked Substance Use Type: Marijuana, Heroin and Methamphetamine Social History Comments: Moved from [place] to [place] to live with son, Lamin. Meds Medications and Allergies Allergies No Known Drug Allergies Allergy (Verified 11/17/24 08:25) Unknown Reaction Home Medications albuterol 90 mcg/actuation [...] Instructions inhalation Q1H PRN to stop smoking 05/02/24[History Confirmed 05/02/24] levofloxacin 750 mg tablet 750 mg PO DAILY #5 tabs 05/06/24 [Rx] methylprednisolone 16 mg tablet (Medrol) 16 mg PO DAILY 5 days #5 tabs 05/06/24 [Rx] Exam Physical Exam Vital Signs: Temp Pulse Resp BP Pulse Ox O2 Del Method O2 Flow Rate 98 F 77 20 179/103 H 98 Room Air 2 11/18/24 14:26 11/18/24 14:11/18/24 14:11/18/24 14:11/18/24 14:11/18/24 14:11/18/24 00:00 Narrative: Physical Exam: General: NAD, awake, alert, beligerent and shouting Head, Eyes: NC/AT, EOMI Lungs: Good air entry; No crackles Heart: S1S2 normal, Regular rhythm, No murmurs Extremities: No edema. Abdomen: Soft, non-tender, non-distended. Neuro: CN grossly intact, No focal deficits. Psych: Normal mood & affect. Results - Cardiology Labs 11/18/24 06:39 11/18/24 06:39 Lab results: Cardiac Enzymes 11/18/24 Range/Units 06:39 AST 16 (13-39) U/L CBC 11/18/24 Range/Units 06:39 RBC 5.01 (3.90-5.60) x10E6/uL Hgb 14.6 (13.0-17.0) g/dL Hct 43.0 (38.8-50.0) % Plt Count 216 (150-450) x10E3/uL Neut # (Auto) 4.7 (1.8-7.7) x10E3/uL Lymph # (Auto) 1.4 (1.00-4.8) x10E3/uL [place] # (Auto) 0.6 (0.0-0.8) x10E3/uL Eos # (Auto) 0.0 (0.0-0.45) x10E3/uL Baso # (Auto) 0.0 (0.0-0.2) x10E3/uL Comprehensive Metabolic Panel 11/18/24 Range/Units 06:39 Sodium 142 (136-145) mmol/L Potassium 4.1 (3.5-5.1) mmol/L Chloride 105 (98-107) mmol/L Carbon Dioxide 31.4 H (21.0-31.0) mmol/L BUN 22 (7-25) mg/dL Creatinine 1.10 (0.70-1.30) mg/dL Glucose 113 H (70-100) mg/dL Calcium 9.4 (8.6-10.3) mg/dL AST 16 (13-39) U/L ALT 10 (7-52) U/L Alkaline Phosphatase 93 (34-104) U/L Total Protein 6.3 L (6.4-8.9) gm/dL Albumin 3.9 (3.5-5.7) gm/dL Intake and Output 11/18/24 11/18/24 11/18/24 06:59 14:59 22:59 Intake Total 1000 / 1105 105 / 105 Output Total 500 / 500 Balance 1000 / 1104 -395 / -395 Intake: IV 1000 / 1105 105 / 105 Lactated Ringers 1,000 ml @ 70 1000 / 1000 mls/hr IV .[id number] [facility] Rx#: [id number] levETIRAcetam 500 mg In 105 / 105 Dextrose 5 % in Water 100 ml @ 420 mls/hr IV BID [facility] Rx#: [id number] Output: Urine 500 / 500 Other: # Bowel Movements 1 Weight 78.7 kg Patient Weight 11/19/24 06:59 Weight 78.7 kg Lab 11/17/24 08:28 PT 11.9 INR 1.0 APTT 22.3 L A&P - Cardiology (1) Acute CVA (cerebrovascular accident): Code(s): I63.9 - Cerebral infarction, unspecified (2) Seizure: Code(s): R56.9 - Unspecified convulsions (3) Altered mental status: Code(s): R41.82 - Altered mental status, unspecified (4) T wave inversion in EKG: Code(s): R94.31 - Abnormal electrocardiogram [ECG] [EKG] Plan # Seizure episode - this was a witnessed episode. # Left-sided weakness on admission concerning for stroke vs postictal paralysis. # AMS - he is beligerent and shouting. May be due to above. # Non-ACS troponin elevation # Hypkalemia and hypomagnesemia # Other: Alcohol abuse, hearing use, heavy smoker, COPD. Echo 05/02/2024 ? EF 60 to 65%, mild LVH, no valve abnormalities. EKG 11/17/2024 ? sinus rhythm, lateral TWI. Echo 11/18/2024 (preliminary) ? EF 55-60%, normal diastolic function, mild LVH, poor quality. - Troponin is only marginally elevated 21--36--26. He has no chest pain, shortness of breath or associated symptoms. EKG changes and mild troponin may be due to seizure/stroke. I do not believe he ishaving ACS, neither does he have any cardiac symptoms, and his echo today is normal. - Continue workup of his neurologic symptoms. - Continue correction of electrolytes to reduce ectopy. - Will see as needed. He will follow-up with me as outpatient (outside of the 90day stroke window) at which point we may proceed to stress testing if he ever develops any symptoms in the future. Documented By: Julito Mosley MD 05/07 1612 Signed By: 11/18/24 1627 [facility]01-06-2025 Evaluation note* Diagnosis Onset Date Resolution Status Admit Date Acute CVA (cerebrovascular accident) acute November 18 1:02pm Altered mental status acute Laexi uary 2024 1:02pm Seizure acute November 18 1:02pm T wave inversion in EKG acute J anuary 2024 1:02pm [facility] Work Phone: 1(998) 303-497001-05-2025 Progress note Author Chaz Frey [facility] Note Date/Time November 17, 2024 2: 00pm [facility] [address] [place] [address] Progress Note Signed Patient: Aaron Olivarez MR#: [id number] : 1960 Acct:[id number] Age/Sex: 64 / M Adm Date: 5 Loc: Room: [address] [place] [address] Type: ADM INOo Attending Dr: Chaz Frey MD Copies to: ~ Date of Service: 11/17/2024 Progress Narrative Note PROGRESS NOTE Progress Note: Patient had short run of V. tach in the emergency room department. Cardiology team has been consulted already due to new inverted T waves in the lateral lead. Potassium is 4.2. Added magnesium check. Echocardiogram is ordered to rule out cardiomyopathy Small dose beta-bhavana if blood pressure allows Documented By: Chaz Frey MD 11/17/24 1359 Signed By: <Electronically signed by Chaz Frey MD> 11/17/24 1400 [facility] Work Phone: 1(871) 122-770801-05-2025 History and physical note Author Chaz Frey [facility] Note Date/Time November 17, 2024 1: 11pm [facility] [address] [place] [address] Hospitalist H&P Signed Patient: Aaron Olivarez MR#: [id number] : 1960 Acct:[id number] Age/Sex: 64 / M Adm Date: 5 Loc: Room: [address] [place] [address] Type: ADM INOo Attending Dr: Chaz Frey MD Copies to: Sulaiman Feldman, DO Chaz Frey MD~ HPI DATE OF EXAMINATION: 11/17/24 CHIEF COMPLAINT: Seizure HISTORY OF PRESENT ILLNESS: Mr. Olivarez is a 64-year-old gentleman who was brought to the emergency room by the squad. The report was that patient was found having seizure prompting the decision to activate EMS. Patient was seen and evaluated in the emergency room department. He was found to have left-sided weakness. Emergency room physician had consulted with the on-call stroke team. Please refer to ER documentation for details. The decision was made not to proceed with thrombolytics. CTA of the head and neck did not show any thrombus therefore the decision was made not to transfer him to [place] for thrombectomy. On-call stroke team recommended admission to [facility] for neurological and seizure workup with recommendation again not to initiate TNK I went down to see the patient in the emergency room department. He is sleeping. I tried to wake him up but he gets very angry. He is unable or unwilling to answer any questions or follow command. He pushes me away. No family members or friends at the bedside. No other reported signs or symptoms such as hematemesis, fever, chills. Unknown whether patient had stroke before or seizure history. [facility] Medical History Heavy smoker Heroin use H/O ETOH abuse COPD (chronic obstructive pulmonary disease) Social History Smoking Status: Heavy tobacco smoker Social History Comments: Moved from [place] to [place] to live with son, Lamin. Meds Medications and Allergies Allergies No Known Drug Allergies Allergy (Verified 11/17/24 08:25) Unknown Reaction Home Medications albuterol 90 mcg/actuation [...] Del Method O2 Flow Rate 98.3 F 80 18 176/95 H 91 L Room Air 2 11/17/24 08:27 11/17/24 10:34 11/17/24 10:34 11/17/24 10:34 11/17/24 10:34 11/17/24 10:34 11/17/24 08:27 Narrative: Patient is laying in the cart in the emergency room department. Upper torso is elevated about 40 degrees. He is sleeping. I tried to wake him up. He would not open his eyes. He visibly became angry and started pushing me away. He would not allow me to examine him comprehensively. He did not follow my instructions to examine his face and facial symmetry and/or sensation. At some point he was willing to follow command. He is moving the right arm and leg normally. The left arm and leg appear to be weak. Is able to lift against gravity but not against resistance. Again his exam is limited and inconclusive due to patient physically pushing me away from the exam table. Patient was following commands initially but after 10 to 15 minutes he decided not to follow any of my instructions. Chest is clear, heart is regular. Abdomen soft. Lower extremities no edema. Results - Hospitalist H&P Lab Results Labs: Laboratory Last Values Corrected WBC 10.1 X10E3/uL (4.1-10.5) 11/17/24 08:28 Uncorrected WBC Count 10.1 x10E3/uL (4.1-10.5) 11/17/24 08:28 RBC 5.42 x10E6/uL (3.90-5.60) 11/17/24 08:28 Hgb 15.6 g/dL (13.0-17.0) 11/17/24 08:28 Hct 46.4 % (38.8-50.0) 11/17/24 08:28 MCV 85.6 fl (83.5-101) 11/17/24 08:28 MCH 28.8 pg (27.5-35.2) 11/17/24 08:28 MCHC 33.6 g/dL (32.5-35.6) 11/17/24 08:28 RDW 13.6 % (12.0-14.8) 11/17/24 08:28 Plt Count 280 x10E3/uL (150-450) 11/17/24 08:28 MPV 7.3 fl (6.6-10.1) 11/17/24 08:28 Neut % (Auto) 91.8 % (.) 11/17/24 08:28 Lymph % (Auto) 4.4 % (.) 11/17/24 08:28 [place] % (Auto) 3.3 % (.) 11/17/24 08:28 Eos % (Auto) 0.1 % (.) 11/17/24 08:28 Baso % (Auto) 0.4 % (.) 11/17/24 08:28 Nucleat RBC Rel Count 0.1 /100 WBC (0-0.5) 11/17/24 08:28 Neut # (Auto) 9.2 x10E3/uL (1.8-7.7) H 11/17/24 08:28 Lymph # (Auto) 0.4 x10E3/uL (1.00-4.8) L 11/17/24 08:28 [place] # (Auto) 0.3 x10E3/uL (0.0-0.8) 11/17/24 08: Eos # (Auto) 0.0 x10E3/uL (0.0-0.45) 11/17/24 08:28 Baso # (Auto) 0.0 x10E3/uL (0.0-0.2) 11/17/24 08: Monocyte Dist Width 15.39 % (0.00-20.00) 11/17/24 08: PT 11.9 Seconds (9.0-12.9) 11/17/24 08: INR 1.0 11/17/24 08: APTT 22.3 Seconds (25.1-36.5) L 11/17/24 08:28 PHA Creatinine Clear N/A 11/17/24 08: Sodium 142 mmol/L (136-145) 11/17/24 08: Potassium 4.2 mmol/L (3.5-5.1) 11/17/24 08: Chloride 104 mmol/L (98-107) 11/17/24 08: Carbon Dioxide 29.2 mmol/L (21.0-31.0) 11/17/24 08: Anion Gap 13.0 mEq/L (6.0-15.0) 11/17/24 08:28 BUN 16 mg/dL (7-25) 11/17/24 08:28 Creatinine 1.27 mg/dL (0.70-1.30) 11/17/24 08:28 Est GFR (CKD-EPI) > 60.0 mL/Min 11/17/24 08: Glucose 163 mg/dL (70-100) H 11/17/24 08:28 POC Glucose 175 mg/dl 11/17/24 08:25 Calcium 9.1 mg/dL (8.6-10.3) 11/17/24 08:28 Total Bilirubin 0.6 mg/dl (0.3-1.0) 11/17/24 08:28 AST 24 U/L (13-39) 11/17/24 08:28 ALT 12 U/L (7-52) 11/17/24 08:28 Alkaline Phosphatase 95 U/L (34-104) 11/17/24 08:28 Total Creatine Kinase 134 U/L (30-223) 11/17/24 08:28 Troponin I High Sens 21.1 pg/mL (0.0-20.0) H 11/17/24 08:28 Total Protein 6.7 gm/dL (6.4-8.9) 11/17/24 08:28 Albumin 4.2 gm/dL (3.5-5.7) 11/17/24 08:28 Globulin 2.5 gm/dL 11/17/24 08:28 Albumin/Globulin Ratio 1.7 11/17/24 08:28 Prolactin 14.22 ng/mL (2.64-13.13) H 11/17/24 08:28 Ethyl Alcohol < 10 mg/dL 11/17/24 08:28 % Ethyl Alcohol TNP 11/17/24 08:28 Assessment & Plan Assessment/Plan (1) Altered mental status: (2) Seizure: Plan Witnessed seizure. Left-sided weakness. Unknown duration or etiology. Could be postictal paralysis. Could not exclude the possibility of acute right hemispheric dysfunction that could be ischemic in nature. Once again, the patient is not willing to cooperate with my exam. He is physically pushing me away using his right hand to stay off the examining table. ER physician had discussed his case with the on-call stroke team. Stroke team performed their evaluation and assessment. Stroke team advised not to proceed with thrombolytics nor transfer him to the need for thrombectomy given the fact that his CTA is negative for any thrombus or clot. I had accepted to admit him to the medical floor at [place] I started him on aspirin and statin. Requested PT OT eval and treatment. Speech and swallow as well as cognition evaluation. Seizure precaution. MRI of the brain. Echocardiogram. Telemetry monitoring to rule out cardiac dysrhythmia. Repeat prolactin and check a CPK. 1 dose of Keppra pending evaluation by neurology team. Neuro consultation. Defer further needed diagnostic and therapeutic intervention relative to his neurological status and the timing of these interventions to neurology team. Abnormal EKG. New inverted T wave compared to last EKG available in the system. First troponin is insignificantly elevated. Requested follow-up troponin, echocardiogram and cardiac consultation continue aspirin. Hypertension. Systolic blood pressure is 176. Permissible hypertension to ensure appropriate cerebral perfusion. Keep systolic between 160 and 180. 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 Unknown whether his drug use is causing or contributing to his seizure or change in mental status. Could be toxic encephalopathy. I requested the urine tox screen. Other medical issues could not be addressed or evaluated at this time due to his mental status, lack of cooperation and rejection to participate in comprehensive and appropriate interaction to allow for accurate assessment. His lack of cooperation could be intentional or could be related to encephalopathy, toxic encephalopathy, postictal state. I spent about 1 hour in the critical care evaluation, assessment and treatment of this patient thus far. IP vs OBS Justification Based on differential dx, clinical care plan, and risk of adverse events, if untreated, in my clinical judgement this patient requires an acute care setting as: OBSERVATION because of an expectation of an under 2 midnight stay. Estimated length of stay (# of days): 4 Documented By: Chaz Frey MD 11/17/24 1301 Signed By: <Electronically signed by Chaz Frey MD> 11/17/24 1311 [facility] Work Phone: 1(968) 377-686201-05-2025 [place] [id number] Progress Note Signed Patient: Aaron Olivarez MR#: [id number] : 1960 Acct:[id number] Age/Sex: 64 / M Adm Date: 5 Loc: Room: [address] [place] [address] Type: ADM INOo Attending Dr: Chaz Frey MD Copies to: ~ Date of Service: 11/17/2024 Progress Narrative Note PROGRESS NOTE Progress Note: Patient had short run of V. tach in the emergency room department. Cardiology team has been consulted already due to new inverted T waves in the lateral lead. Potassium is 4.2. Added magnesium check. Echocardiogram is ordered to rule out cardiomyopathy Small dose beta-bhavana if blood pressure allows Documented By: Chaz Frey MD 11/17/24 1359 Signed By: 11/17/24 1400 [facility]01-05-2025 [place] [address] Hospitalist H&P Signed Patient: Aaron Olivarez MR#: [id number] : 1960 Acct:[id number] Age/Sex: 64 / M Adm Date: 5 Loc: Room: [address] [place] [address] Type: ADM INOo Attending Dr: Chaz Frey MD Copies to: DO Chaz Barnard MD~ HPI DATE OF EXAMINATION: 11/17/24 CHIEF COMPLAINT: Seizure HISTORY OF PRESENT ILLNESS: Mr. Olivarez is a 64-year-old gentleman who was brought to the emergency room by the squad. The reportwas that patient was found having seizure prompting the decision to activate EMS. Patient was seen and evaluated in the emergency room department. He was found to have left-sided weakness. Emergency room physician had consulted with the on- call stroke team. Please refer to ER documentation for details. The decision was made not to proceed with thrombolytics. CTA of the head and neck did not show any thrombus therefore the decision was made not to transfer him to [facility] for thrombectomy. On-call stroke team recommended admission to [facility] for neurological andseizure workup with recommendation again not to initiate TNK I went down to see the patient in the emergency room department. He is sleeping. I tried to wake him up but he gets very angry. He is unable or unwilling to answer any questions or follow command. Hepushes me away. No family members or friends at the bedside. No other reported signs or symptoms such as hematemesis, fever, chills. Unknown whether patient had stroke before or seizure history. [facility] Medical History Heavy smoker Heroin use H/O ETOH abuse COPD (chronic obstructive pulmonary disease) Social History Smoking Status: Heavy tobacco smoker Social History Comments: Moved from [place] to [place] to live with son, Lamin. Meds Medications and Allergies Allergies No Known Drug Allergies Allergy (Verified 11/17/24 08:25) Unknown Reaction Home Medications albuterol 90 mcg/actuation [...] Instructions inhalation Q1H PRN to stop smoking 05/02/24[History Confirmed 05/02/24] levofloxacin 750 mg tablet 750 mg PO DAILY #5 tabs 05/06/24 [Rx] methylprednisolone 16 mg tablet (Medrol) 16 mg PO DAILY 5 days #5 tabs 05/06/24 [Rx] Exam Physical Exam Vital Signs: Temp Pulse Resp BP Pulse Ox O2 Del Method O2 Flow Rate 98.3 F 80 18 176/95 H 91 L Room Air 2 11/17/24 08:27 11/17/24 10:34 11/17/24 10:34 11/17/24 10:34 11/17/24 10:34 11/17/24 10:34 11/17/24 08:27 Narrative: Patient is laying in the cart in the emergency room department. Upper torso is elevated about 40 degrees. He is sleeping. I tried to wake him up. He would not open his eyes. He visibly became angry and started pushing me away. He would not allow me to examine him comprehensively. He did not follow my instructions to examine his face and facial symmetry and/or sensation. At some point he was willing to follow command. He is moving the right arm and leg normally. The left arm and leg appear to be weak. Is able to lift against gravity but not against resistance.Again his exam is limited and inconclusive due to patient physically pushing me away from the exam table. Patient was following commands initially but after 10 to 15 minutes he decided not to follow any ofmy instructions. Chest is clear, heart is regular. Abdomen soft. Lower extremities no edema. Results - Hospitalist H&P Lab Results Labs: Laboratory Last Values Corrected WBC 10.1 X10E3/uL (4.1-10.5) 11/17/24 08: Uncorrected WBC Count 10.1 x10E3/uL (4.1-10.5) 11/17/24 08: RBC 5.42 x10E6/uL (3.90-5.60) 11/17/24 08:28 Hgb 15.6 g/dL (13.0-17.0) 11/17/24 08: Hct 46.4 % (38.8-50.0) 11/17/24 08: MCV 85.6 fl (83.5-101) 11/17/24 08: MCH 28.8 pg (27.5-35.2) 11/17/24 08: MCHC 33.6 g/dL (32.5-35.6) 11/17/24 08: RDW 13.6 % (12.0-14.8) 11/17/24 08: Plt Count 280 x10E3/uL (150-450) 11/17/24 08: MPV 7.3 fl (6.6-10.1) 11/17/24 08: Neut % (Auto) 91.8 % (.) 11/17/24 08: Lymph % (Auto) 4.4 % (.) 11/17/24 08: [place] % (Auto) 3.3 % (.) 11/17/24 08: Eos % (Auto) 0.1 % (.) 11/17/24 08: Baso % (Auto) 0.4 % (.) 11/17/24 08: Nucleat RBC Rel Count 0.1 /100 WBC (0-0.5) 11/17/24 08: Neut # (Auto) 9.2 x10E3/uL (1.8-7.7) H 11/17/24 08: Lymph # (Auto) 0.4 x10E3/uL (1.00-4.8) L 11/17/24 08:28 [place] # (Auto) 0.3 x10E3/uL (0.0-0.8) 11/17/24 08:28 Eos # (Auto) 0.0 x10E3/uL (0.0-0.45) 11/17/24 08: Baso # (Auto) 0.0 x10E3/uL (0.0-0.2) 11/17/24 08: Monocyte Dist Width 15.39 % (0.00-20.00) 11/17/24 08: PT 11.9 Seconds (9.0-12.9) 11/17/24 08: INR 1.0 11/17/24 08: APTT 22.3 Seconds (25.1-36.5) L 11/17/24 08: PHA Creatinine Clear N/A 11/17/24 08: Sodium 142 mmol/L (136-145) 11/17/24 08: Potassium 4.2 mmol/L (3.5-5.1) 11/17/24 08: Chloride 104 mmol/L (98-107) 11/17/24 08: Carbon Dioxide 29.2 mmol/L (21.0-31.0) 11/17/24 08: Anion Gap 13.0 mEq/L (6.0-15.0) 11/17/24 08: BUN 16 mg/dL (7-25) 11/17/24 08: Creatinine 1.27 mg/dL (0.70-1.30) 11/17/24 08: Est GFR (CKD-EPI) > 60.0 mL/Min 11/17/24 08: Glucose 163 mg/dL (70-100) H 11/17/24 08: POC Glucose 175 mg/dl 11/17/24 08:25 Calcium 9.1 mg/dL (8.6-10.3) 11/17/24 08:28 Total Bilirubin 0.6 mg/dl (0.3-1.0) 11/17/24 08: AST 24 U/L (13-39) 11/17/24 08: ALT 12 U/L (7-52) 11/17/24 08:28 Alkaline Phosphatase 95 U/L (34-104) 11/17/24 08: Total Creatine Kinase 134 U/L (30-223) 01/05/25 08:28 Troponin I High Sens 21.1 pg/mL (0.0-20.0) H 11/17/24 08:28 Total Protein 6.7 gm/dL (6.4-8.9) 11/17/24 08:28 Albumin 4.2 gm/dL (3.5-5.7) 11/17/24 08:28 Globulin 2.5 gm/dL 11/17/24 08:28 Albumin/Globulin Ratio 1.7 11/17/24 08:28 Prolactin 14.22 ng/mL (2.64-13.13) H 11/17/24 08:28 Ethyl Alcohol < 10 mg/dL 11/17/24 08:28 % Ethyl Alcohol TNP 11/17/24 08:28 Assessment & Plan Assessment/Plan (1) Altered mental status: (2) Seizure: Plan Witnessed seizure. Left-sided weakness. Unknown duration or etiology. Could be postictal paralysis. Could not exclude the possibility of acute right hemispheric dysfunction that could be ischemic in nature. Once again, the patient is not willing to cooperate with my exam. He is physically pushing me away using his right hand to stay off the examining table. ER physician had discussed his case with the on-call stroke team. Stroke team performed their evaluation and assessment. Stroke team advised not to proceed with thrombolytics nor transfer him to the need for thrombectomy given the fact that his CTA is negative for any thrombus or clot. I had accepted to admit him to the medical floor at [place] I started him on aspirin and statin. Requested PT OT eval and treatment. Speech and swallow as well as cognition evaluation. Seizure precaution. MRI of the brain. Echocardiogram. Telemetry monitoring to rule out cardiac dysrhythmia. Repeat prolactin and check a CPK. 1 dose of Keppra pending evaluation by neurology team. Neuro consultation. Defer further needed diagnostic and therapeutic intervention relative to his neurological status and the timing of these interventions to neurology team. Abnormal EKG. New inverted T wave compared to last EKG available in the system. First troponin is insignificantly elevated. Requested follow-up troponin, echocardiogram and cardiac consultation continue aspirin. Hypertension. Systolic blood pressure is 176. Permissible hypertension to ensure appropriate cerebral perfusion. Keep systolic between 160 and 180. 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 Unknown whether his drug use is causing or contributing to his seizure or change in mental status. Could be toxic encephalopathy. I requested the urine tox screen. Other medical issues could not be addressed or evaluated at this time due to his mental status, lack of cooperation and rejection to participate in comprehensive and appropriate interaction to allow for accurate assessment. His lack of cooperation could be intentional or could be related to encephalopathy, toxic encephalopathy, postictal state. I spent about 1 hour in the critical care evaluation, assessment and treatment of this patient thusfar. IP vs OBS Justification Based on differential dx, clinical care plan, and risk of adverse events, if untreated, in my clinical judgement this patient requires an acute care setting as: OBSERVATION because of an expectation of an under 2 midnight stay. Estimated length of stay (# of days): 4 Documented By: Chaz Frey MD 11/17/24 1301 Signed By: 11/17/24 1311 [facility]01-05-2025 Evaluation note* Diagnosis Onset Date Resolution Status Admit Date Acute CVA (cerebrovascular accident) acute November 17 9:54am Altered mental status acute Nov 9:54am Seizure acute November 17 9:54am [facility] Work Phone: 1(588) 778-597901-05-2025 Radiology Diagnostic study [facility] [place] [address] CT Scan Report Signed Patient: Aaron Olivarez MR#: [id number] : 1960 Acct:[id number] Age/Sex: 64 / M ADM Date: Loc: ER Room: Type: PRE ER Attending Dr: Copies to: Ragini Carmona DO~ Ordering Provider: Ragini Carmona DO Date of Service: 11/17/24 CT/CT angio head: cva ([id number]) CT/CT angio neck: cva CT angio head, CT angio neck 11/17/2024 8:47 AM SIGNS AND SYMPTOMS: Fall, left-sided deficits CONTRAST: 90 mL of intravenous Isovue-370 TECHNIQUE: Multi-detector CT angiography axial slices of the head and neck were obtained during intravenous administration of IV contrast material. Sagittal, coronal, and 3-D reconstructions were performed and viewed on a separate workstation. CT was performed with one or more of the following dosereduction techniques: Automated exposure control, adjustment of the mA and/or kV accordingto patient size, or use of iterative reconstruction technique. Stenoses were measured using the NASCET criteria. COMPARISON: Noncontrast CT from the same date. FINDINGS: CTA HEAD: The superior cerebellar arteries, posterior inferior cerebellar arteries, and the basilar artery are within normal limits. The posterior cerebral arteries areunremarkable. Atherosclerotic changes are noted in the intracranial segments of the internal carotid arteries contributing to mild to moderate multifocal narrowing greatest in the supraclinoid ophthalmic segments bilaterally.. There are normal anterior and middle cerebral arteries. Anterior communicating artery is patent. Posteriorcommunicating arteries are present. The deep venous system and dural venous systems appear to be patent. No bony abnormalities are appreciated. CTA NECK: There is a normal three-vessel arch. The subclavian arteries are within normal limits. The vertebral arteries arise from the subclavian arteries and are normal in course and caliber up to the skull base. The common and internal carotid arteries are normal in caliber. Calcified plaque is noted without significant stenosis along the carotid bifurcations and proximal internal carotid arteries bilaterally. Visualized lung parenchyma is clear. Degenerative changes are noted in the cervical spine. No acutebony abnormalities are identified. The paraspinous soft tissues are within normal limits. CT/CT angio head IMPRESSION: No evidence of focal stenosis, aneurysmal dilatation, dissection or occlusion. No evidence of acute traumatic injury. The cervical spine and upper thoracic spine are grossly intact. Impression dictated by: Dung Chakraborty M.D.11/17/2024 8:59 AM Dictation Location: [place] [address] Transcribed By: [facility] 11/17/24858 Dictated By: Dung Chakraborty II, MD 11/17/24 0852 Signed By: 11/17/24 0859 [facility] Work Phone: 1(832) 467-248501-05-2025 [facility] [place] [address] [place], [place] [id number] CT Scan Report Signed Patient: Aaron Olivarez MR#: [id number] : 1960 Acct:[id number] Age/Sex: 64 / M ADM Date: Loc: ER Room: Type: PRE ER Attending Dr: Copies to: Ragini Carmona DO~ Ordering Provider: Ragini Carmona DO Date of Service: 11/17/24 CT/CT head stroke alert wo con: stroke CT head stroke alert wo con 11/17/2024 8:25 AM SIGNS AND SYMPTOMS: Fall, weakness TECHNIQUE:Multi-detector CT axial slices of the brain were obtained without IV contrast. CT was performed with one or more of the following dose reduction techniques: Automated exposure control, adjustment of the mA and/or kV accordingto patient size, or use of iterative reconstruction technique. COMPARISON: 05/03/2024 FINDINGS: There is no shift of the midline structures, acute intracranial bleeding, mass effects, or evidence of acute ischemia. Periventricular and subcortical white matter hypoattenuation is noted.Atherosclerotic changes are noted in the intrarenal segments of the internal carotid arteries and V4 segments of the vertebral arteries. Cortically-based gliosis is noted in the left frontal lobe similar to the prior exam consistent with a remote infarct or traumatic injury. The ventricular system is normal in size. The brainstem and the cerebellum are unremarkable. The visualized intraorbital contents, the visualized paranasal sinuses, and the infratemporal soft tissues show no acute abnormality. The osseous structures in the skull base and the calvarium show no abnormality. There is a smallfrontal scalp hematoma. CT/CT head stroke alert wo con IMPRESSION: No acute intracranial pathology. Chronic changes are noted as above. Findings were discussed with Dr. yanes at 8:41 AM on 11/17/2024 Impression dictated by: Dung Chakraborty M.D.11/17/2024 8:43 AM Dictation Location: [place] [address] Transcribed By: YNES 11/17/24 0843 Dictated By: Dung Chakraborty II, MD 11/17/24 0837 Signed By: 11/17/24 0843 [facility] Work Phone: 1([phone]) 768-725809-01-2024 NoteADDENDUM: Results were called to the ordering physician by results communication Electronically Signed by: MATI VALERIO on Sun Jul 14, 2024 10:18:21 AM EDT EXAMINATION: CT [...] Mati Valerio MD 07/14/24 Edited Result - [facility]06-24-2024 Discharge summary Author Kiko Maldonado [facility] May 06, 2024 2:21pm Note Date/Time May 06, 2024 11:[address] [facility] [address] [place] [address] Discharge Summary Signed Patient: Aaron Olivarez MR#: [id number] : 1960 Acct:[id number] Age/Sex: 63 / M Adm Date: 4 Loc: Room: [address] [place] [address]: Kiko Maldonado MD Copies to: MD Sulaiman Younger, ~ Providers Date of Discharge: 05/06/24 Discharging Provider: [...] Consult to Physiatry Routine Comment: Consulting Provider: [facility] Reason For Exam: rehabilitation [...] He presented to the emergency department at [facility] on May 01, with complaints of productive [...] Patient Ordered By: Kiko Maldonado Follow Up: Sulamian Feldman DO [Primary Care Provider] - (His [...] signed by Kiko Maldonado MD> 05/06/24 1421 [facility] Work Phone: 1(796) 448-320806-24-2024 Progress note Author Thanh Paris [facility] Shruthi 24th, 2024 10:16am Note Date/Time May 06, 2024 10:[address] [facility] [address] [place] [address] Pulmonology Progress Note Signed Patient: Aaron Olivarez MR#: [id number] : 1960 Acct:[id number] Age/Sex: 63 / M Adm Date: 4 Loc: Room: [address] [place] [address] Type: ADM IN Attending Dr: Janae Jose MD Copies to: ~ Date of Service: 05/06/2024 Subjective Subjective Narrative: Patient voices no complaints at the time my evaluation. He is very interested in being discharged today as he can relax at home as opposed to being in the hospital. He knows he is in a hospital but does not know that he is at [facility] in [place]. He also knows it is 2023. Exam [...] signed by MD Thanh Paris> 05/06/24 1016 [facility] Work Phone: 1(655) 340-230706-23-2024 Progress note Author Janae Jose [facility] May 05, 2024 1:27pm Note Date/Time May 05, 2024 1:[address] [facility] [address] [place] [address] Hospitalist Progress Note Signed Patient: Aaron Olivarez MR#: [id number] : 1960 Acct:[id number] Age/Sex: 63 / M Adm Date: 4 Loc: Room: [address] [place] [address] Type: ADM IN Attending Dr: Janae Jose [...] L Nasal Cannula 2 05/05/24 12:00 05/05/24 12:05/05/24 12:05/05/24 12:05/05/24 12:00 05/05/24 12:00 05/05/24 12:00 FiO2 40 [...] down without significant elevation. Suspecting type II CO from hypoxia. Echocardiogram showing preserved ejection fraction with mild LVH. No wall motion abnormality seen. EKG negative for acute ischemic changes. Documented By: Janae Jose MD 05/05/24 1319 Signed By: <Electronically signed by Janae Jose MD> 05/05/24 1327 [facility] Work Phone: 1(154) 573-706206-23-2024 Progress note Author Víctor Agrawal [facility] May 05, 2024 11:29am Note Date/Time May 05, 2024 11:[address] [facility] [address] [place] [address] Pulmonology Progress Note Signed Patient: Aaron Olivarez MR#: [id number] : 1960 Acct:[id number] Age/Sex: 63 / M Adm Date: 4 Loc: Room: [address] [place] [address] Type: ADM IN Attending Dr: Janae Jose [...] 95 Nasal Cannula 2 05/05/24 08:00 05/05/24 10:00 05/05/24 10:00 05/05/24 10:00 05/05/24 [...] edema, no clubbing. Skin: No skin rash CLIENT SUPPORT MANAGER: Sleepy, easily arousable, no focal deficits. Objective [...] prophylaxis Discussed with nursing staff Documented By: Víctor Agrawal MD 05/05/24 112 5 Signed By: <Electronically signed by Víctor Agrawal MD> 05/05/24 1122 [facility] Work Phone: 1([phone]) 653-854806-22-2024 Progress note Author Janae Jose [facility] May 04, 2024 12:19pm Note Date/Time May 04, 2024 12:[address] [facility] [address] [place] [address] Hospitalist Progress Note Signed Patient: Aaron Olivarez MR#: [id number] : 1960 Acct:[id number] Age/Sex: 63 / M Adm Date: 4 Loc: Room: [address] [place] [address] Type: ADM IN Attending Dr: Janae Jose [...] Tablet PO 05/03/25 09:59 50 mg TID CORYB Administration Ceftriaxone Sodium 1 gm in 50 [...] down without significant elevation. Suspecting type II CO from hypoxia. Echocardiogram showing preserved ejection fraction with mild LVH. No wall motion abnormality seen. Negative for acute ischemic changes. Documented By: Janae Jose MD 05/04/241209 Signed By: <Electronically signed by Janae Jose MD> 05/04/24 1219 [facility] Work Phone: 1(505) 185-580306-22-2024 Progress note Author Víctor Agrawal [facility] May 04, 2024 12:03pm Note Date/Time May 04, 2024 11:[address] [facility] [address] [place] [address] Pulmonology Progress Note Signed Patient: Aaron Olivarez MR#: [id number] : 1960 Acct:[id number] Age/Sex: 63 / M Adm Date: 4 Loc: 4C Room: [address] [place] [address] Type: ADM IN Attending Dr: Janae Jose [...] Musculoskeletal: No edema Skin: No skin rash CLIENT SUPPORT MANAGER: Drowsy and confused, does not interact or [...] <Electronically signed by Víctor Agrawal MD> 05/04/24 1204 [facility] Work Phone: 1(971) 900-915806-21-2024 Progress note Author Víctor Agrawal [facility] May 03, 2024 1:57pm Note Date/Time May 03, 2024 1:[address] [facility] [address] [place] [address] Pulmonology Progress Note Signed Patient: Aaron Olivarez MR#: [id number] : 1960 Acct:[id number] Age/Sex: 63 / M Adm Date: 4 Loc: Room: [address] [place] [address] Type: ADM IN Attending Dr: Janae Jose [...] Musculoskeletal: No edema Skin: No skin rash CLIENT SUPPORT MANAGER: Drowsy, 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 No focal deficits Objective Intake [...] 30 minutes Documented By: Víctor Agrawal MD 05/03/24 135 2 Signed By: <Electronically signed by Víctor Agrawal MD> 05/03/24 1357 [facility] Work Phone: 1(328) 396-359206-21-2024 Progress note Author Janae Jose [facility] May 03, 2024 12:57pm Note Date/Time May 03, 2024 12:[address] [facility] [address] [place] [address] Hospitalist Progress Note Signed Patient: Aaron Olivarez MR#: [id number] : 1960 Acct:[id number] Age/Sex: 63 / M Adm Date: 4 Loc: Room: [address] [place] [address] Type: ADM IN Attending Dr: Janae Jose [...] 05/01/24 23:20 Acetaminophen 325 Mg Tablet PO 06/19/25 23:19 Q6HR PRN Fever Albuterol 2.5 mg [...] down without significant elevation. Suspecting type II CO from hypoxia. Pending echocardiogram to assess LV function and wall motion. Will obtain twelve-lead EKG. Documented By: Janae Jose MD 05/03/24 0577 Signed By: <Electronically signed by Janae Jose MD> 05/03/24 1257 [facility] Work Phone: 1(191) 212-352706-20-2024 Progress note Author Janae Jose [facility] May 02, 2024 1:49pm Note Date/Time May 02, 2024 1:49 pm [facility] [address] [place] [address] Event Note Signed Patient: Aaron Olivarez MR#: [id number] : 1960 Acct:[id number] Age/Sex: 63 / M Adm Date: 4 Loc: Room: [address] [place] [address] Type: ADM IN Attending Dr: Janae Jose [...] MINS): 15 Documented By: Janae Jose MD 05/02/241347 Signed By: <Electronically signed by Janae Jose MD> 05/02/24 1349 [facility] Work Phone: 1(150) 705-926406-20-2024 Consult note Author Víctor Agrawal [facility] May 02, 2024 1:47pm Note Date/Time May 02, 2024 1:42 pm [facility] [address] [place] [address] Pulmonology Consult Note Signed Patient: Aaron Olivarez MR#: [id number] : 1960 Acct:[id number] Age/Sex: 63 / M Adm Date: 4 Loc: 4C Room: [address] [place] [address] Type: ADM IN Attending Dr: Janae Jose MD Copies to: DO Janae Barnard MD Mohamed A Swedeh, MD~ HPI Date/Time of Consultation: Date of Service: 05/02/2024 Time of Service: 13:37 Consulting Provider: Víctor Agrawal Requesting Provider: Janae Jose History of Present Illness History of present illness: Patient is 63 year old male with past medical history significant for chronic obstructive pulmonary disease, chronic hypoxemic respiratory failure, nicotine dependence, drug abuse, alcohol abuse and history of hypertension was transferred from [place] ED directly into ICU. Apparently, patient was experiencing productive cough with thick yellow phlegm and increased shortness of breath prior to his presentation to [place] ED. Patient was found by familylethargic and difficult to arouse, oxygen saturation was 70% on room air, venousblood gas showed pCO2 of 80 with pH of 7.32. Patient refused BiPAP. Chest CT angiogram reported negative for PE, showed right lower lobe consolidation consistent with pneumonia. [facility] Social History Smoking Status: Heavy tobacco [...] Musculoskeletal: No edema Skin: No skin rash CLIENT SUPPORT MANAGER: Drowsy, no focal deficits Results - Pulmonology [...] <Electronically signed by Víctor Agrawal MD> 05/02/24 2710 [facility] Work Phone: 1(198) 764-436506-20-2024 History and physical note Author Magdy Douglass [facility] May 02, 2024 7:12am Note Date/Time May 02, 2024 7:[address] [facility] [address] [place] [address] Hospitalist H&P Signed Patient: Aaron Olivarez MR#: [id number] : 1960 Acct:[id number] Age/Sex: 63 / M Adm Date: 4 Loc: Room: [address] [place] [address] Type: ADM IN Attending Dr: Janae Jose MD Copies to: MD Sulaiman Ruggiero, DO Janae Jose MD~ HPI DATE OF EXAMINATION: 05/01/24 CHIEF COMPLAINT: cough, dyspnea, altered mental status HISTORY OF PRESENT ILLNESS: 63 year old man with history of HTN, COPD, tobacco abuse who presented to [place] ED with the above complaints. Per the patient for 2-3 days prior to admission he was having a cough productiveof thick yellow sputum and increasing dyspnea with exertion. On the date of presentation family members went to see the patient and found that he was lethargic and difficult to arouse so he was brought to [place] ED for evaluation. On arrival there pulse [...] negative except as noted in the HPI [facility] Social History Smoking Status: Heavy tobacco smoker [...] % (Auto) 7.8 % (.) 05/02/24 04:20 [place] % (Auto) 8.2 % (.) 05/02/24 04:20 Eos % (Auto) 0.0 % (.) 05/02/24 04:20 Baso % (Auto) 0.2 % (.) 05/02/24 04:20 Nucleat RBC Rel Count 0.2 /100 WBC (0-0.5) 05/02/24 04:20 Neut # (Auto) 6.3 x10E3/uL (1.8-7.7) 05/02/24 04:20 Lymph # (Auto) 0.6 x10E3/uL (1.00-4.8) L 05/02/24 04:20 [place] # (Auto) 0.6 x10E3/uL (0.0-0.8) 05/02/24 04:20 [...] signed by Magdy Douglass MD> 05/02/24 0712 [facility] Work Phone: Consult note Author Patricio Galaviz [facility] May 06, 2024 1:01pm Note Date/Time May 06, 2024 1:[address] [facility] [address] [place] [address] Physiatry (Rehab) Consult Note Signed Patient: Aaron Olivarez MR#: [id number] : 1960 Acct:[id number] Age/Sex: 63 / M Adm Date: 4 Loc: Room: [address] [place] [address] Type: ADM IN Attending Dr: Kiko Maldonado [...] differences but he does understand that our rehab unit would require him to remain in the hospital, which he does not want to do. He states has help at home from family. Review of Systems Review of Systems All other systems reviewed & are negative unless noted below or in HPI [facility] Medical History Heavy smoker Heroin use H/O ETOH abuse COPD (chronic obstructive pulmonary disease) Social History Smoking Status: Heavy tobacco smoker Social History Comments: Moved from [place] to [place] to live with son, Lamin. Meds Medications [...] chart, including current orders, allied health and direct sales consultant notes, labs/imaging and performed [place] elements of exam and I formulated the plan of care and facilitated the medical decision making. I completed a substantive portion of this encounter, the medical decision making portion of this note in its entirety, including Allied health note review, nursing note review, direct sales consultant note review, discussion with nursing and case management, and more than 50% of my time was spent on counseling and coordination of care, time spent 60 minutes Documented By: Patricio Galaviz MD 05/06/24 1251 Signed By: <Electronically signed by Patricio Galaviz MD> 05/06/24 1301 [facility] Work Phone: Consult note Author Julito Mosley [facility] Note Date/Time November 18, 2024 4: 27pm [facility] [address] [place] [address] Cardiology Consult Note Signed Patient: Aaron Olivarez MR#: [id number] : 1960 Acct:[id number] Age/Sex: 64 / M Adm Date: 5 Loc: Room: [address] [place] [address] Type: ADM INOo Attending Dr: Yamila Donald MD Copies to: DO Julito Barnard MD Marwan Wassouf, MD~ Cardiology HPI History of Present Illness Consult Date: 11/18/24 Reason for Consult: T wave inversions HPI: Mr. Olivarez is a 64 year old male who is admitted for seizure episode. On presentation to the ER he was also thought to have left-sided weakness and stroke protocol was activated. CTA head and neck showed no obstructive thrombus therefore he was not sent for thrombectomy. He was outside the window for thrombolytics. EKG was noted to have T wave inversions in the lateral leads. These are new from prior EKG performed in April 2024. He has no chest pain or shortness of breath. He denies any problem with his heart. Troponin is marginally elevated 21--36--26. He is rather angry and states that all he wants to do is go use the bathroom. Review of Systems Review of Systems All other systems reviewed & are negative unless noted below or in HPI [facility] Medical History Heavy smoker Heroin use H/O ETOH abuse COPD (chronic obstructive pulmonary disease) Social History Smoking Status: Unknown if ever smoked Substance Use Type: Marijuana, Heroin and Methamphetamine Social History Comments: Moved from [place] to [place] to live with son, Lamin. Meds Medications and Allergies Allergies No Known Drug Allergies Allergy (Verified 11/17/24 08:25) Unknown Reaction Home Medications albuterol 90 mcg/actuation [...] Ox O2 Del Method O2 Flow Rate 98 F 77 20 179/103 H 98 Room Air 2 11/18/24 14:26 11/18/24 14:26 11/18/24 14:26 11/18/24 14:11/18/24 14:11/18/24 14:11/18/24 00:00 Narrative: Physical Exam: General: NAD, awake, alert, beligerent and shouting Head, Eyes: NC/AT, EOMI Lungs: Good air entry; No crackles Heart: S1S2 normal, Regular rhythm, No murmurs Extremities: No edema. Abdomen: Soft, non-tender, non-distended. Neuro: CN grossly intact, No focal deficits. Psych: Normal mood & affect. Results - Cardiology Labs 11/18/24 06:39 11/18/24 06:39 Lab results: Cardiac Enzymes 11/18/24 Range/Units 06:39 AST 16 (13-39) U/L CBC 11/18/24 Range/Units 06:39 RBC 5.01 (3.90-5.60) x10E6/uL Hgb 14.6 (13.0-17.0) g/dL Hct 43.0 (38.8-50.0) % Plt Count 216 (150-450) x10E3/uL Neut # (Auto) 4.7 (1.8-7.7) x10E3/uL Lymph # (Auto) 1.4 (1.00-4.8) x10E3/uL [place] # (Auto) 0.6 (0.0-0.8) x10E3/uL Eos # (Auto) 0.0 (0.0-0.45) x10E3/uL Baso # (Auto) 0.0 (0.0-0.2) x10E3/uL Comprehensive Metabolic Panel 11/18/24 Range/Units 06:39 Sodium 142 (136-145) mmol/L Potassium 4.1 (3.5-5.1) mmol/L Chloride 105 (98-107) mmol/L Carbon Dioxide 31.4 H (21.0-31.0) mmol/L BUN 22 (7-25) mg/dL Creatinine 1.10 (0.70-1.30) mg/dL Glucose 113 H (70-100) mg/dL Calcium 9.4 (8.6-10.3) mg/dL AST 16 (13-39) U/L ALT 10 (7-52) U/L Alkaline Phosphatase 93 (34-104) U/L Total Protein 6.3 L (6.4-8.9) gm/dL Albumin 3.9 (3.5-5.7) gm/dL Intake and Output 11/18/24 11/18/24 11/18/24 06:59 14:59 22:59 Intake Total 1000 / 1105 105 / 105 Output Total 500 / 500 Balance 1000 / 1104 -395 / -395 Intake: IV 1000 / 1105 105 / 105 Lactated Ringers 1,000 ml @ 70 1000 / 1000 mls/hr IV .[id number] CORBY Rx#: [id number] levETIRAcetam 500 mg In 105 / 105 Dextrose 5 % in Water 100 ml @ 420 mls/hr IV BID CORBY Rx#: [id number] Output: Urine 500 / 500 Other: # Bowel Movements 1 Weight 78.7 kg Patient Weight 11/19/24 06:59 Weight 78.7 kg Lab 11/17/24 08:28 PT 11.9 INR 1.0 APTT 22.3 L A&P - Cardiology (1) Acute CVA (cerebrovascular accident): Code(s): I63.9 - Cerebral infarction, unspecified (2) Seizure: Code(s): R56.9 - Unspecified convulsions (3) Altered mental status: Code(s): R41.82 - Altered mental status, unspecified (4) T wave inversion in EKG: Code(s): R94.31 - Abnormal electrocardiogram [ECG] [EKG] Plan # Seizure episode - this was a witnessed episode. # Left-sided weakness on admission concerning for stroke vs postictal paralysis. # AMS - he is beligerent and shouting. May be due to above. # Non-ACS troponin elevation # Hypkalemia and hypomagnesemia # Other: Alcohol abuse, hearing use, heavy smoker, COPD. Echo 05/02/2024 ? EF 60 to 65%, mild LVH, no valve abnormalities. EKG 11/17/2024 ? sinus rhythm, lateral TWI. Echo 11/18/2024 (preliminary) ? EF 55-60%, normal diastolic function, mild LVH, poor quality. - Troponin is only marginally elevated 21--36--26. He has no chest pain, shortness of breath or associated symptoms. EKG changes and mild troponin may be due to seizure/stroke. I do not believe he is having ACS, neither does he have any cardiac symptoms, and his echo today is normal. - Continue workup of his neurologic symptoms. - Continue correction of electrolytes to reduce ectopy. - Will see as needed. He will follow-up with me as outpatient (outside of the 90day stroke window) at which point we may proceed to stress testing if he ever develops any symptoms in the future. Documented By: Julito Mosley MD 05/07 1612 Signed By: <Electronically signed by Julito Mosley MD> 11/18/24 1627 [facility] Work Phone: Consult note Author Neville Bush [facility] Note Date/Time November 18, 2024 5: 44pm [facility] [address] [place] [address] Neurology Consult Note Signed Patient: Aaron Olivarez MR#: [id number] : 1960 Acct:[id number] Age/Sex: 64 / M Adm Date: 5 Loc: Room: [address] [place] [address] Type: ADM IN Attending Dr: Yamila Donald MD Copies to: DO Sulaiman Mosquera DO Marwan Wassouf, MD~ HPI Consult Date: 11/18/24 Commercial Litigation Associate: Neville Bush DO [facility] Medical History Heavy smoker Heroin use H/O ETOH abuse COPD (chronic obstructive pulmonary disease) Social History Smoking Status: Unknown if ever smoked Substance Use Type: Marijuana, Heroin and Methamphetamine Social History Comments: Moved from [place] to [place] to live with sonLamin. Meds Medications and Allergies Allergies No Known Drug Allergies Allergy (Verified 11/17/24 08:25) Unknown Reaction Home Medications albuterol 90 mcg/actuation [...] Ox O2 Del Method O2 Flow Rate 98.6 F 62 20 212/100 H 98 Room Air 2 11/18/24 16:00 11/18/24 16:00 11/18/24 16:00 11/18/24 16:00 11/18/24 16:00 11/18/24 16:00 11/18/24 00:00 Results - Neuro Laboratory Findings 11/18/24 06:39 11/18/24 06:39 Lab Results: ESR 2 mm/hr (0-19) 11/17/24 08:28 Diagnostic Findings Imaging/Impressions: ITS Impressions Head CT 11/17/24 08:25 IMPRESSION: No acute intracranial pathology. Chronic changes are noted as above. Findings were discussed with Dr. yanes at 8:41 AM on 11/17/2024 Impression dictated by: Dung Chakraborty M.D.11/17/2024 8:43 AM Dictation Location: [place] [address] Head CTA 11/17/24 08:25 IMPRESSION: No evidence of focal stenosis, aneurysmal dilatation, dissection or occlusion. No evidence of acute traumatic injury. The cervical spine and upper thoracic spine are grossly intact. Impression dictated by: Dung Chakraborty M.D.11/17/2024 8:59 AM Dictation Location: [place] [address] Chest X-Ray 11/17/24 12:57 IMPRESSION: No acute cardiopulmonary pathology. Impression dictated by: Dung Chakraborty M.D.11/17/2024 1:26 PM Dictation Location: [place] [address] Assessment/Plan (1) Seizure: Plan CONSULT REASON: Seizure, left hemiparesis HPI: He was seen in the emergency department the morning of November 17, 2024 after being seen having a seizure on the ground reportedly. He then exhibited weakness in the left upper and left lower extremity that was continually gradually improving. There was concern for postictal paralysis. The plan was submitted to the ICU. He has been combative and requiring restraints. EXAMINATION: Supine in bed. Not in any distress. Opens eyes to voice. Very reluctant to participate in the examination. He is able to hold both of his upper extremities off the bed without any drift. Lower extremities without drift as well. Attention seems impaired. Gaze appears conjugate. Speech sounds nondysarthric and fluent. Sensation in all limbs seems intact. DATA REVIEW: -Routine EEG borderline slow but overall unremarkable -Head CT nonacute -CTA of head and neck without concerning findings ASSESSMENT: It sounds like he had a generalized tonic-clonic seizure with postictal paralysis (left hemiparesis). Unclear if the seizure could be somehow related to alcohol use/disuse. His routine EEG does not raise suspicion for an underlying epilepsy disorder or focal brain lesion. Awaiting MR imaging of the brain. PLAN: MRI brain with and without contrast is pending He has been placed on Keppra, currently at 500 mg IV twice daily Documented By: Neville Bush DO 11/18/24 1738 Signed By: <Electronically signed by Neville Bush DO> 11/18/24 3419 [facility] Work Phone: Evaluation note* Diagnosis Onset [...] cute Tobacco abuse acute Uncontrolled hypertension ac [facility] Work Phone: Progress note Author Yamila Donald [facility] Note Date/Time November 19, 2024 3: 10am [facility] [address] [place] [address] Hospitalist Progress Note Signed Patient: Aaron Olivarez MR#: [id number] : 1960 Acct:[id number] Age/Sex: 64 / M Adm Date: 5 Loc: Room: 8V5853-1 Type: ADM IN Attending Dr: Yamila Donald MD Copies to: ~ Date of Service: 11/18/2024 Subjective Subjective Narrative: Assessment And Plan 64M PMH of COPD, multi substance abuse on Suboxone who was found having a seizure Rule out CVA Seizure The patient had been walking around and then was found on the ground seizing shortly thereafter. He was found with Left-sided weakness. He was evaluated in the ED and was found not a TPA candidate . the patient is likely having a post tactile paralysis. the patient is afebrile and hemodynamically stable. there is no leukocytosis urinalysis didn?t show any pyuria or hematuria CXR shows No acute cardiopulmonary pathology. Tox screen positive for Amphetamine, benzodiazepine and THC Head and neck CTA shows No evidence of focal stenosis, aneurysmal dilatation, dissection or occlusion. No evidence of acute traumatic injury. The cervical spine and upper thoracic spine are grossly intact. ct brain shows no acute intracranial process , Chronic changes EKG shows NSR Seizure precaution Keppra Agree with EEG Neuro consultation HTN urgency Hydralazine prn Start Lisinopril Agitation The patient is aggressive and violent require restrain Geodon was not effective Given his history of alcohol use will give Ativan as needed troponin elevation Troponin is marginally elevated he was evaluated by cardiology who do not believe he is having ACS INTERVAL HPI: As Above, Pt resting in bed. not cooperative repot pain all over. aggressive doesn't care to answer any questions Chronic diseases: Unless mentioned Above, Essential home medications have been continued. DVT Px: Addressed Disposition: To be determined Plan of care Discussed with: the medical team, the patient L Exam Physical Exam Vital Signs: Temp Pulse Resp BP Pulse Ox O2 Del Method O2 Flow Rate 37.0 C 62 20 212/100 H 98 Room Air 2 11/18/24 16:00 11/18/24 16:00 11/18/24 16:00 11/18/24 16:00 11/18/24 16:00 11/18/24 16:00 11/18/24 00:00 Narrative: GEN: NAD, not Cooperative NECK: ? JVD, supple LUNGS: CTA CV: nl S1 S2; no M/R/Gts ABD: Soft, ND, NT, ? HSM EXT: No peripheral edema, No calf muscle tenderness NEURO: Limited exam, not fully cooperative; however move all her extremities; no overt focal neurological deficits. Pupils are equal and reactive to light PSYCH: flat affect, combative Objective Lab Results 11/18/24 06:39 11/18/24 06:39 Meds Allergies and Active Meds Allergies No Known Drug Allergies Allergy (Verified 11/17/24 08:25) Unknown Reaction Active Meds: Active Medications Generic Name Dose Route Start Last Admin Trade Name Freq PRN Reason Stop Dose Admin Aspirin 325 mg 11/18/24 09:00 11/18/24 09:09 Aspirin 325 Mg Tablet PO 11/18/25 08:59 Not Given DAILY CORBY Atorvastatin Calcium 40 mg 11/17/24 21:00 11/17/24 22:28 Atorvastatin 40 Mg Tablet PO 11/17/25 20:59 Not Given QPM CORBY Haloperidol Lactate 2 mg 11/18/24 16:43 Haloperidol Lactate 5 Mg/Ml Vial IV-PUSH 11/18/25 16:42 Q6H PRN Agitation Hydralazine HCl 10 mg 11/17/24 20:06 11/18/24 16:18 Hydralazine 20 Mg/Ml Vial IV-PUSH 11/17/25 20:05 10 mg Q4H PRN Administration Blood Pressure - High Lactated Ringer's 1,000 mls @ 70 mls/hr 11/17/24 13:00 11/18/24 07:57 Lactated Ringers IV 11/18/24 17:34 70 mls/hr .[id number] CORBY Administration Levetiracetam 500 mg/ Dextrose 105 mls @ 420 mls/hr 11/17/24 21:00 11/18/24 10:09 IV 11/21/24 20:59 Infused BID CORBY Infusion Lisinopril 20 mg 11/18/24 16:50 Lisinopril 20 Mg Tablet PO 11/18/25 16:49 DAILY CORBY Lorazepam 0.5 mg 11/18/24 01:06 Lorazepam 2 Mg/Ml Vial IV-PUSH 05/17/25 01:05 Q6H PRN Agitation Lorazepam 2 mg 11/18/24 17:00 Lorazepam 2 Mg/Ml Vial IV-PUSH 11/18/24 17:01 ONCE ONE Lorazepam 1 mg 11/18/24 16:44 Lorazepam 2 Mg/Ml Vial IV-PUSH 05/17/25 16:43 Q6H PRN Agitation Sodium Chloride 0 ml 11/17/24 08:25 11/17/24 10:31 Sodium Chloride 0.9 % 10 Ml Syringe IV-PUSH 11/17/25 08:24 10 ml PRN PRN Administration Flush Sodium Chloride 10 ml 11/17/24 13:00 11/18/24 13:05 Sodium Chloride 0.9 % 10 Ml Syringe IV-PUSH 11/17/25 12:59 Not Given Q8H CORBY Sodium Chloride 0 ml 11/17/24 14:00 11/18/24 16:18 Sodium Chloride 0.9 % 10 Ml Syringe IV-PUSH 11/17/25 13:59 20 ml QSHIFT CORBY Administration Sodium Chloride 10 ml 11/18/24 01:06 Sodium Chloride 0.9 % 10 Ml Vial.Pf INJECTION 11/18/25 01:05 Q4H PRN Ativan dilution Sodium Chloride 10 ml 11/18/24 16:44 Sodium Chloride 0.9 % 10 Ml Vial.Pf INJECTION 11/18/25 16:43 Q4H PRN Ativan dilution A&P - Hospitalist Assessment/Plan (1) Altered mental status: (2) Seizure: Plan Documented By: Yamila Donald MD 11/18/24 2689 Signed By: <Electronically signed by Yamila Donald MD> 11/19/24 0310 [facility] Work Phone: Proclalu note Author Neville Bush [facility] Note Date/Time November 19, 2024 6: 02pm [facility] [address] [place] [address] Neurology Progress Note Signed Patient: Aaron Olivarez MR#: [id number] : 1960 Acct:[id number] Age/Sex: 64 / M Adm Date: 5 Loc: Room: [address] [place] [address] Type: ADM IN Attending Dr: Yamila Donald MD Copies to: ~ Date of Service: 11/19/2024 Exam Physical Exam Vital Signs: Temp Pulse Resp BP Pulse Ox O2 Del Method O2 Flow Rate 98.6 F 95 18 176/96 H 98 Room Air 2 11/19/24 12:00 11/19/24 17:00 11/19/24 17:00 11/19/24 17:00 11/19/24 17:00 11/19/24 17:00 11/18/24 00:00 Objective Vital Signs Vital Signs: Vital Signs - 24 hr 11/18/24 19:00 11/18/24 20:00 11/18/24 20:00 Temperature 98.5 F Pulse Rate [Monitor] 66 85 Respiratory Rate 20 22 Blood Pressure [Left Arm] 189/101 H 214/102 H 02 Sat by Pulse Oximetry 98 Oxygen Delivery Method Room Air Room Air Room Air 11/18/24 21:00 11/18/24 22:00 11/18/24 23:00 Temperature Pulse Rate [Monitor] 85 84 88 Respiratory Rate 22 24 24 Blood Pressure [Left Arm] 197/97 H 210/100 H 194/95 H 02 Sat by Pulse Oximetry 98 98 Oxygen Delivery Method Room Air Room Air Room Air 11/19/24 00:00 11/19/24 01:00 11/19/24 02:00 Temperature 98.3 F Pulse Rate [Monitor] 91 93 83 Respiratory Rate 24 24 24 Blood Pressure [Left Arm] 211/98 H 180/101 H 195/93 H 02 Sat by Pulse Oximetry 93 L 96 Oxygen Delivery Method Room Air Room Air Room Air 11/19/24 03:00 11/19/24 04:00 11/19/24 05:00 Temperature 98.7 F Pulse Rate [Monitor] 93 86 90 Respiratory Rate 22 24 20 Blood Pressure [Left Arm] 216/98 H 181/87 H 178/91 H 02 Sat by Pulse Oximetry 96 96 97 Oxygen Delivery Method Room Air Room Air Room Air 11/19/24 06:00 11/19/24 08:00 11/19/24 09:00 Temperature 98.8 F Pulse Rate [Monitor] 97 89 Respiratory Rate 20 26 H Blood Pressure [Left Arm] 202/94 H 207/110 H 02 Sat by Pulse Oximetry 97 95 Oxygen Delivery Method Room Air Room Air Room Air 11/19/24 10:00 11/19/24 12:00 11/19/24 15:00 Temperature 98.6 F Pulse Rate [Monitor] 85 92 102 H Respiratory Rate 20 26 H 20 Blood Pressure [Left Arm] 169/95 H 173/93 H 186/95 H 02 Sat by Pulse Oximetry 98 98 99 Oxygen Delivery Method Room Air Room Air Room Air 11/19/24 16:00 11/19/24 17:00 Temperature Pulse Rate [Monitor] 100 95 Respiratory Rate 20 18 Blood Pressure [Left Arm] 165/99 H 176/96 H 02 Sat by Pulse Oximetry 99 98 Oxygen Delivery Method Room Air Room Air Labs 11/19/24 05:12 11/19/24 05:12 Assessment/Plan (1) Seizure: Plan CONSULT REASON: Seizure, left hemiparesis INTERIM: Supine in bed, sleeping. Did not want to participate in the interview or the examination. EXAMINATION: Supine in bed. Not in any distress. Opens eyes to voice. Very reluctant to participate in the examination. He is able to hold both of his upper extremities off the bed without any drift. Lower extremities without drift as well. Attention seems impaired. Gaze appears conjugate. Speech sounds nondysarthric and fluent. Sensation in all limbs seems intact. DATA REVIEW: -Routine EEG borderline slow but overall unremarkable -Head CT nonacute -CTA of head and neck without concerning findings -MRI brain November 19, 2024 shows no acute findings, moderate to severe chronic microvascular changes, some encephalomalacia in the left anterior frontal lobe ASSESSMENT: It sounds like he had a generalized tonic-clonic seizure with postictal paralysis (left hemiparesis). He has some encephalomalacia in the left frontal lobe that involves some cortex so I will make the assumption that his seizure isrelated to that. Unclear if the seizure could be somehow related to alcohol use/disuse. His routine EEG was borderline slow but overall unremarkable. PLAN: Continue levetiracetam 500 mg twice daily indefinitely. No other recommendations at this time. Outpatient neurology follow-up. Documented By: Neville Bush DO 11/19/241758 Signed By: <Electronically signed by Neville Bush DO> 11/19/24 3317 [facility] Work Phone: Progress note Author Yamila Donald [facility] Note Date/Time November 20, 2024 3: 02am [facility] [address] [place] [address] Hospitalist Progress Note Signed Patient: Aaron Olivarez MR#: [id number] : 1960 Acct:[id number] Age/Sex: 64 / M Adm Date: 5 Loc: Room: [address] [place] [address] Type: ADM IN Attending Dr: Yamila Donald MD Copies to: ~ Date of Service: 11/19/2024 Subjective Subjective Narrative: Assessment And Plan 64M PMH of COPD, multi substance abuse on Suboxone who was found having a seizure CVA - Ruled out Seizure The patient had been walking around and then was found on the ground seizing shortly thereafter. He was found with Left-sided weakness. He was evaluated in the ED and was found not a TPA candidate . the patient is afebrile and hemodynamically stable. there is no leukocytosis urinalysis didn?t show any pyuria or hematuria CXR shows No acute cardiopulmonary pathology. EKG shows NSR Tox screen positive for Amphetamine, benzodiazepine and THC Head and neck CTA shows No evidence of focal stenosis, aneurysmal dilatation, dissection or occlusion. No evidence of acute traumatic injury. The cervical spine and upper thoracic spine are grossly intact. ct brain shows no acute intracranial process , Chronic changes MRI shows moderate to severe chronic microvascular disease and central involutional changes negative for acute stroke or midline shift. encephalomalacia greatest left anterior frontal lobe and left gyrus rectus, motion degradation. EEG normal he likely has had generalized tonic-clonic seizure with postictal paralysis Neuro recommended to Continue levetiracetam 500 mg twice daily indefinitely and Outpatient neurology follow-up. HTN urgency Hydralazine prn Lisinopril Agitation The patient is aggressive and violent require restrain Kuldeepdon was not effective Ativan/Haldol as needed troponin elevation Troponin is marginally elevated he was evaluated by cardiology who do not believe he is having ACS INTERVAL HPI: As Above, Pt resting in bed. the patient remain not cooperative hewas agitated Chronic diseases: Unless mentioned Above, Essential home medications have been continued. DVT Px: Addressed Disposition: To be determined Plan of care Discussed with: the medical team, the patient L Exam Physical Exam Vital Signs: Temp Pulse Resp BP Pulse Ox O2 Del Method O2 Flow Rate 37.0 C 95 22 184/100 H 98 Room Air 2 11/19/24 12:00 11/19/24 19:00 11/19/24 19:00 11/19/24 19:00 11/19/24 19:00 11/19/24 19:00 11/18/24 00:00 Narrative: GEN: NAD, not Cooperative NECK: ? JVD, supple LUNGS: CTA CV: nl S1 S2; no M/R/Gts ABD: Soft, ND, NT, ? HSM EXT: No peripheral edema, No calf muscle tenderness NEURO: Limited exam, not fully cooperative; however move all her extremities; no overt focal neurological deficits. Pupils are equal and reactive to light PSYCH: flat affect, combative Objective Lab Results 11/19/24 05:12 11/19/24 05:12 Meds Allergies and Active Meds Allergies No Known Drug Allergies Allergy (Verified 11/17/24 08:25) Unknown Reaction Active Meds: Active Medications Generic Name Dose Route Start Last Admin Trade Name John PRN Reason Stop Dose Admin Aspirin 325 mg 11/18/24 09:00 11/19/24 09:19 Aspirin 325 Mg Tablet PO 11/18/25 08:59 Not Given DAILY CORBY Atorvastatin Calcium 40 mg 11/17/24 21:00 11/19/24 20:46 Atorvastatin 40 Mg Tablet PO 11/17/25 20:59 Not Given QPM CORBY Folic Acid 1 mg 11/19/24 09:00 11/19/24 09:19 Folic Acid 1 Mg Tablet PO 11/19/25 08:59 Not Given DAILY CORBY Haloperidol Lactate 5 mg 11/18/24 23:27 11/19/24 20:45 Haloperidol Lactate 5 Mg/Ml Vial IV-PUSH 11/18/25 16:42 5 mg Q6H PRN Administration Agitation Hydralazine HCl 10 mg 11/17/24 20:06 11/19/24 06:32 Hydralazine 20 Mg/Ml Vial IV-PUSH 11/17/25 20:05 10 mg Q4H PRN Administration Blood Pressure - High Levetiracetam 500 mg/ Dextrose 105 mls @ 420 mls/hr 11/17/24 21:00 11/19/24 20:46 IV 11/21/24 20:59 420 mls/hr BID CORBY Administration Lisinopril 20 mg 11/18/24 16:50 11/19/24 09:19 Lisinopril 20 Mg Tablet PO 11/18/25 16:49 Not Given DAILY CORBY Lorazepam 1 mg 11/18/24 23:27 Lorazepam 2 Mg/Ml Vial IV-PUSH 05/17/25 01:05 Q4H PRN Agitation Lorazepam 2 mg 11/18/24 23:27 11/19/24 20:14 Lorazepam 2 Mg/Ml Vial IV-PUSH 05/17/25 16:43 2 mg Q4H PRN Administration Agitation Multivitamins 1 tab 11/19/24 09:00 11/19/24 09:19 Multivitamin 1 Tab Tablet PO 11/19/25 08:59 Not Given DAILY CORBY Sodium Chloride 0 ml 11/17/24 08:25 11/19/24 00:38 Sodium Chloride 0.9 % 10 Ml Syringe IV-PUSH 11/17/25 08:24 10 ml PRN PRN Administration Flush Sodium Chloride 10 ml 11/17/24 13:00 11/19/24 20:46 Sodium Chloride 0.9 % 10 Ml Syringe IV-PUSH 11/17/25 12:59 10 ml Q8H CORBY Administration Sodium Chloride 0 ml 11/17/24 14:00 11/19/24 15:39 Sodium Chloride 0.9 % 10 Ml Syringe IV-PUSH 11/17/25 13:59 20 ml QSHIFT CORBY Administration Sodium Chloride 10 ml 11/18/24 01:06 11/19/24 20:14 Sodium Chloride 0.9 % 10 Ml Vial.Pf INJECTION 11/18/25 01:05 10 ml Q4H PRN Administration Ativan dilution Sodium Chloride 10 ml 11/18/24 16:44 Sodium Chloride 0.9 % 10 Ml Vial.Pf INJECTION 11/18/25 16:43 Q4H PRN Ativan dilution Thiamine HCl 100 mg 11/18/24 21:00 11/19/24 20:46 Thiamine 100 Mg Tablet PO 11/18/25 20:59 Not Given BID CORBY A&P - Hospitalist Assessment/Plan (1) Altered mental status: (2) Seizure: Plan Documented By: Yamila Donald MD 11/19/242100 Signed By: <Electronically signed by Yamila Donald MD> 11/20/24 0302 [facility] Work Phone: Progress note Author Yamila Donald [facility] Note Date/Time November 20, 2024 7: 21pm [facility] [address] [place] [address] Hospitalist Progress Note Signed Patient: Aaron Olivarez MR#: [id number] : 1960 Acct:[id number] Age/Sex: 64 / M Adm Date: 5 Loc: Room: [address] [place] [address] Type: ADM IN Attending Dr: Yamila Donald MD Copies to: ~ Date of Service: 11/20/2024 Subjective Subjective Narrative: Assessment And Plan 64M PMH of COPD, multi substance abuse on Suboxone who was found having a seizure CVA - Ruled out Seizure The patient had been walking around and then was found on the ground seizing shortly thereafter. He was found with Left-sided weakness. He was evaluated in the ED and was found not a TPA candidate . the patient is afebrile and hemodynamically stable. there is no leukocytosis urinalysis didn?t show any pyuria or hematuria CXR shows No acute cardiopulmonary pathology. EKG shows NSR Tox screen positive for Amphetamine, benzodiazepine and THC Head and neck CTA shows No evidence of focal stenosis, aneurysmal dilatation, dissection or occlusion. No evidence of acute traumatic injury. The cervical spine and upper thoracic spine are grossly intact. ct brain shows no acute intracranial process , Chronic changes MRI Brain shows moderate to severe chronic microvascular disease and central involutional changes negative for acute stroke or midline shift. encephalomalacia greatest left anterior frontal lobe and left gyrus rectus, motion degradation. EEG normal he likely has had generalized tonic-clonic seizure with postictal paralysis Neuro recommended to Continue levetiracetam 500 mg twice daily indefinitely and Outpatient neurology follow-up. HTN urgency Hydralazine prn Lisinopril Agitation The patient was aggressive and violent require restrain Geodon was not effective he was placed on Ativan/Haldol as needed troponin elevation Troponin is marginally elevated he was evaluated by cardiology who do not believe he is having ACS LINTERVAL HPI: As Above, Pt resting in bed. the patient remain not fully cooperative but not agitated. he tolertes diet Chronic diseases: Unless mentioned Above, Essential home medications have been continued. DVT Px: Addressed Disposition: move to waiting bed Plan of care Discussed with: the medical team, the patient L Exam Physical Exam Vital Signs: Temp Pulse Resp BP Pulse Ox O2 Del Method O2 Flow Rate 36.9 C 99 18 144/92 H 97 Room Air 2 11/20/24 16:02 11/20/24 17:05 11/20/24 17:05 11/20/24 17:05 11/20/24 17:05 11/20/24 17:05 11/18/24 00:00 Narrative: GEN: NAD, not fully Cooperative NECK: ? JVD LUNGS: CTA CV: nl S1 S2; no M/R/Gts ABD: Soft, ND, NT, ? HSM EXT: No peripheral edema, No calf muscle tenderness NEURO: not fully cooperative; however move all her extremities; no overt focalneurological deficits PSYCH: flat affect, AOx2-3 Objective Lab Results 11/19/24 05:12 11/19/24 05:12 Meds Allergies and Active Meds Allergies No Known Drug Allergies Allergy (Verified 11/17/24 08:25) Unknown Reaction Active Meds: Active Medications Generic Name Dose Route Start Last Admin Trade Name Freq PRN Reason Stop Dose Admin Aspirin 325 mg 11/18/24 09:00 11/20/24 09:44 Aspirin 325 Mg Tablet PO 11/18/25 08:59 325 mg DAILY CORBY Administration Atorvastatin Calcium 40 mg 11/17/24 21:00 11/19/24 20:46 Atorvastatin 40 Mg Tablet PO 11/17/25 20:59 Not Given QPM CORBY Folic Acid 1 mg 11/19/24 09:00 11/20/24 09:44 Folic Acid 1 Mg Tablet PO 11/19/25 08:59 1 mg DAILY CORBY Administration Haloperidol Lactate 5 mg 11/18/24 23:27 11/19/24 20:45 Haloperidol Lactate 5 Mg/Ml Vial IV-PUSH 11/18/25 16:42 5 mg Q6H PRN Administration Agitation Hydralazine HCl 10 mg 11/17/24 20:06 11/20/24 02:15 Hydralazine 20 Mg/Ml Vial IV-PUSH 11/17/25 20:05 10 mg Q4H PRN Administration Blood Pressure - High Levetiracetam 500 mg/ Dextrose 105 mls @ 420 mls/hr 11/17/24 21:00 11/20/24 10:03 IV 11/21/24 20:59 Infused BID CORBY Infusion Lisinopril 20 mg 11/18/24 16:50 11/20/24 09:44 Lisinopril 20 Mg Tablet PO 11/18/25 16:49 20 mg DAILY CORBY Administration Lorazepam 1 mg 11/18/24 23:27 Lorazepam 2 Mg/Ml Vial IV-PUSH 05/17/25 01:05 Q4H PRN Agitation Lorazepam 2 mg 11/18/24 23:27 11/19/24 20:14 Lorazepam 2 Mg/Ml Vial IV-PUSH 05/17/25 16:43 2 mg Q4H PRN Administration Agitation Multivitamins 1 tab 11/19/24 09:00 11/20/24 09:44 Multivitamin 1 Tab Tablet PO 11/19/25 08:59 1 tab DAILY CORBY Administration Sodium Chloride 0 ml 11/17/24 08:25 11/20/24 09:41 Sodium Chloride 0.9 % 10 Ml Syringe IV-PUSH 11/17/25 08:24 10 ml PRN PRN Administration Flush Sodium Chloride 10 ml 11/17/24 13:00 11/20/24 16:04 Sodium Chloride 0.9 % 10 Ml Syringe IV-PUSH 11/17/25 12:59 10 ml Q8H CORBY Administration Sodium Chloride 0 ml 11/17/24 14:00 11/20/24 16:04 Sodium Chloride 0.9 % 10 Ml Syringe IV-PUSH 11/17/25 13:59 Not Given QSHIFT CORBY Sodium Chloride 10 ml 11/18/24 01:06 11/19/24 20:14 Sodium Chloride 0.9 % 10 Ml Vial.Pf INJECTION 11/18/25 01:05 10 ml Q4H PRN Administration Ativan dilution Sodium Chloride 10 ml 11/18/24 16:44 Sodium Chloride 0.9 % 10 Ml Vial.Pf INJECTION 11/18/25 16:43 Q4H PRN Ativan dilution Thiamine HCl 100 mg 11/18/24 21:00 11/20/24 09:44 Thiamine 100 Mg Tablet PO 11/18/25 20:59 100 mg BID CORBY Administration A&P - Hospitalist Assessment/Plan (1) Altered mental status: (2) Seizure: Plan Documented By: Yamila Donald MD 11/20/24 1723 Signed By: <Electronically signed by Yamila Donald MD> 11/20/24 1921 [facility] Work Phone: Summary Purpose Family History No [...] Advance Directives No May 21 9 7:10pm Advance Directive Response Recorded Date/ Time Advance Directives No May 21 9 6:10pm Chief Complaint and Reason for Visit Chief Complaint Pneumonia Exacerbati on, COPD Pneumonia Exacerbation, COPD Pneumonia Exacerbation, COPD Reason for Visit Acute exacerbation o f chronic obstructive pulmonary disease (COPD) Acute respiratory failure with hypoxia and hypercapnia Alcohol abuse Alcohol withdrawal Community acquired pneumonia Elevated troponin History of heroin abuse Metabolic encephalopathy Nicotine dependence Right lower lobe pneumonia Tobacco abuse Uncontrolled hypertension Chief Complaint Admit Date neuro symptoms/fall November 17, 2024 9: 54am Reason for Visit Admit Date Acute CVA (cerebrovascular accident) Alexi keith 2024 9:54am Altered mental status November 17, 2024 9:54am Seizure November 17, 2024 9: 54am Chief Complaint Admit Date neuro symptoms/fall November 18, 2024 1: 02pm neuro symptoms/fall November 18, 2024 4: 12pm Reason for Visit Admit Date Acute CVA (cerebrovascular accident) Alexi keith 2024 1:02pm Altered mental status November 18, 2024 1:02pm Seizure November 18, 2024 1: 02pm T wave inversion in EKG November 18 1:02pm Additional Source Comments (unrecognized sect ion and content) No Status Records FoundNo Status Records FoundNo Status Records FoundNo Status Records FoundNo Status Records FoundNo Status Records FoundNo Status Records FoundNo Status Records FoundNo Status Records FoundNo Status Records FoundNo Status Records Found INFORMATION SOURCE (unrecogn ized section and content) DATE CREATED AUTHOR 05/01/2018 [facility] DATE CREATED AUTHOR AUTHOR'S ORGANIZ ATION 05/04/2018 [facility] DATE CREATED AUTHOR AUTHOR'S ORGANIZ ATION 05/07/2018 [facility] DATE CREATED AUTHOR AUTHOR'S ORGANIZ ATION 05/09/2018 [facility] DATE CREATED AUTHOR AUTHOR'S ORGANIZ ATION 07/04/2018 [facility] DATE CREATED AUTHOR AUTHOR'S ORGANIZ ATION 10/23/2018 [facility] DATE CREATED AUTHOR AUTHOR'S ORGANIZ ATION 11/28/2022 [facility] DATE CREATED AUTHOR AUTHOR'S ORGANIZ ATION 07/24/2024 [facility] DATE CREATED AUTHOR AUTHOR'S ORGANIZ ATION 11/24/2024 [facility] DATE CREATED AUTHOR AUTHOR'S ORGANIZ ATION 12/17/2024 [facility] Care Teams (unrecognized sec tion and content) Team Status: Active Member Role Status Dates Sulaiman Feldman DO Primary Care Provider Active Team Status: Inactive Member Role Status Dates Sulaiman Feldman DO Primary Care Provider Active Start: November 18, 2024 End: November 21, 2024 Ragini Carmona DO Emergency Provider Active St art: November 18, 2024 End: November 21, 2024 Chaz Frey MD Admit Provider Active Start: November 18, 2024 End: November 21, 2024 Yamila Donald MD Attending Provider Active St art: November 18, 2024 End: November 21, 2024 Donna Marcelo Other Provider Active Start: November 18, 2024 End: November 21, 2024 Kashmir Conner PhD Other Provider Active S tart: November 18, 2024 End: November 21, 2024 Sivan Francois DO Other Provider Active Start: November 18, 2024 End: November 21, 2024 Reno Hubbard MD Other Provider Active Start : November 18, 2024 End: November 21, 2024 Thanh Kenney DO Other Provider Active Start: November 18, 2024 End: November 21, 2024 Neville Bush DO Other Provider Active Start: November 18, 2024 End: November 21, 2024 Bella Cano APRN Other Provider Active St art: November 18, 2024 End: November 21, 2024 Janie Amaro SIENE MAKER-C Other Provider Active Sta rt: November 18, 2024 End: November 21, 2024 Alejandra Montenegro APRN-MANAGER FRONT OFFICE-C Other Provider Active Start: November 18, 2024 End: November 21, 2024 Team Status: Active Member Role Status Dates Sulaiman Feldman , Primary Care Provider Active Start: November 18, 2024 Ragini Carmona DO Emergency Provider Active St art: November 18, 2024 Chaz Frey MD Admit Provider Active Start: November 18, 2024 Yamila Donald MD Other Provider Active Start: November 18, 2024 Jaylin Fajardo RN Other Provider Active Star t: November 18, 2024 Wojciech Horowitz MD Other Provider Active Start: J anuary 2024 Julito Mosley MD Attending Provider, Other Provider Active Start: November 18, 2024 Emy Rae MD Other Provider Active Start: November 18, 2024 Donna Marcelo Other Provider Active Start: November 18, 2024 Kashmir Conner PhD Other Provider Active S tart: November 18, 2024 Sivan Francois DO Other Provider Active Start: November 18, 2024 Reno Hubbard MD Other Provider Active Start : November 18, 2024 Thanh Kenney DO Other Provider Active Start: November 18, 2024 Neville Bush DO Other Provider Active Start: November 18, 2024 Bella Cano APRN Other Provider Active St art: November 18, 2024 VANESSA Douglas Other Provider Active Sta rt: November 18, 2024 Alejandra Montenegro APRN-MANAGER FRONT [employer]ICE-C Other Provider Active Start: November 18, 2024 Team Status: Active Member Role Status Dates Sulaiman Feldman DO Primary Care Provider Active Start: November 17, 2024 Ragini Carmona , Emergency Provider Active St art: November 17, 2024 Chaz Frey MD Admit Provider Active Start: November 17, 2024 Yamila Donald MD Attending Provider Active St art: November 17, 2024 Jaylin Fajardo RN Other Provider Active Star t: November 17, 2024 Wojciech Horowitz MD Other Provider Active Start: J 2024 Julito Mosley MD Other Provider Active Start: November 17, 2024 Emy Rae MD Other Provider Active Start: November 17, 2024 Donna Marcelo Other Provider Active Start: November 17, 2024 Kashmir Conner PhD Other Provider Active S tart: November 17, 2024 Sivan Francois DO Other Provider Active Start: November 17, 2024 Reno Hubbard MD Other Provider Active Start : November 17, 2024 Thanh Kenney DO Other Provider Active Start: November 17, 2024 Neville Bush DO Other Provider Active Start: November 17, 2024 Bella Cano APRN Other Provider Active St art: November 17, 2024 VANESSA Douglas Other Provider Active Sta rt: November 17, 2024 Alejandra Montenegro APRN-MANAGER FRONT OFFICE-C Other Provider Active Start: November 17, 2024 Team Status: Inactive Member Role Status Dates Sulaiman Feldman DO Primary Care Provider Active Start: May 01, 2024 End: May 06, 2024 Magdy Douglass MD Admit Provider Active S tart: May 01, 2024 End: May 06, 2024 Kiko Maldonado MD Attending Provider Active St art: May 01, 2024 End: May 06, 2024 Karley Nguyen MD Other Provider Active Start: 2023 End: May 06, 2024 Patricio Galaviz MD Other Provider Active Start: Giselle bianchi 2023 End: May 06, 2024 Sofia Kent APRN Other Provider Active St art: May 01, 2024 End: May 06, 2024 Stevie Pichardo Jr, DO [...] Karley Nguyen MD Other Provider Active Start: 2023 Patricio Galaviz MD Attending Provider, Other Provider Active Start: May 06, 2024 Sofia Kent APRN Other Provider Active St art: May 06, 2024 Stevie Pichardo Jr, DO Other Provider Active S tart: May 06, 2024 Danny Mills MD Other Provider Active Start: May 06, 2024 Víctor Agrawal MD Other Provider Active St art: May 06, 2024 Goals (unrecognized section and content) Goals may be documented in a n alternate section FOR RECORDS PERTAINING TO PATIENTS WHO ARE [...] BE BASED ON THE PRIMARY CLINICAL RECORDS. [facility] [employer] [facility]. provides no warranty or guarantee of the accuracy or completeness of information in this document.
--- NOTE | 2024-12-20 09:06 | ED_ITS ---
HPI - Seizure General Chief Complaint: Seizure Stated Complaint: SEIZURES Time Seen by Provider: 12/20/24 08:41 Mode of arrival: ambulance History of Present Illness HPI Narrative: 64-year-old male to the emergency department with chief complaint of seizure- like activity from home. He had witnessed 10-minute generalized tonic-clonic seizure by family. He has a history of seizure disorder. EMS was called and administered 2.5 of IV Versed to the patient. EMS is for later this patient report they have had multiple calls in the past for seizures, polysubstance abuse, strokelike symptoms. Patient was reported to be otherwise at his baseline health. Past medical history: COPD, seizure disorder, polysubstance abuse, chronic noncompliance Place: home Related Data Home Medications ?Medication ?Instructions ?Recorded ?Confirmed No Known Home Medications 12/20/24 12/20/24 Allergies Allergy/AdvReac Type Severity Reaction Status Date / Time No Known Drug Allergies Allergy Verified 04/01/24 10:45 Review of Systems ROS Status of ROS 10 or more systems reviewed and unremark able except as noted in history and below Exam Narrative Exam Narrative: VITALS: I have reviewed the triage vital signs. GENERAL: Adult male in no distress lying peacefully in bed. NEURO: GCS 13 ([id number]). 1/5 strength on left UE and LE. Sensation intact in blt UE and LE. EYES: PERRL. No scleral icterus or conjunctival injection. No discharge. HENT: Normocephalic, atraumatic. Hearing is grossly intact. Nares grossly patent and without discharge. Mucous membranes moist. NECK: No JVD. Patient moves neck without restriction. CARDIO: Rhythm regular. Normal rate. No murmur, rub, or gallop. Pulses equal bilaterally in the upper and lower extremity. No lower extremity edema. PULM: Lungs clear to auscultation in all garcia. No wheezes, rales, or rhonchi. No conversational dyspnea. No splinting, stridor, or accessory muscle use. GI/: Abdomen is soft and non-tender. Normoactive bowel sounds. EXTREMITIES: Symmetric muscle bulk. No joint swelling. No clubbing, cyanosis, or deformity. SKIN: Warm and dry. Normal turgor. No rash or lesions appreciated. Tattoos. PSYCH: Unable to assess Constitutional Vital Signs, click to edit/add: Last Vital Signs Temp 98.2 F 12/20/24 08:44 Pulse 69 12/20/24 11:31 Resp 17 12/20/24 11:31 BP 169/90 H 12/20/24 11:31 Pulse Ox 94 L 12/20/24 11:31 O2 Del Method Room Air 12/20/24 08:44 Course Vital Signs Vital signs: Vital Signs Temperature 98.2 F 12/20/24 08:44 Pulse Rate 74 12/20/24 08:44 Respiratory Rate 16 12/20/24 08:44 Blood Pressure 145/88 H 12/20/24 08:44 Pulse Oximetry 95 12/20/24 08:44 Oxygen Delivery Method Room Air 12/20/24 08:44 Temperature 98.2 F 12/20/24 08:44 Pulse Rate 69 12/20/24 11:31 Respiratory Rate 17 12/20/24 11:31 Blood Pressure 169/90 H 12/20/24 11:31 Pulse Oximetry 94 L 12/20/24 11:31 Oxygen Delivery Method Room Air 12/20/24 08:44 MDM - Seizure MDM Narrative Medical decision making narrative: 64-year-old male to the emergency department with chief complaint of seizure witnessed at home 10 minutes. Vital stable, the patient is afebrile. [facility] notes a history of seizures with left-sided weakness, polysubstance abuse, recent admission at [facility] for similar. At the bedside the patient is drowsy but arousable. He is oriented. He follows commands. He has weakness in the left upper and lower extremity. No other focal deficits noted. There is no evidence of trauma. Given his documented history of left-sided weakness in the postictal setting I do not of this represents an acute ischemic stroke. Will obtain a CT head, basic labs. Based on my review of his history this appears to be a breakthrough seizure in the setting of noncompliance with antiepileptic medications. Clinisync was reviewed: 07/14-07/15/2024-patient had an admission at [facility] for a generalized tonic-clonic seizure complicated by left-sided weakness in the postictal state. He had a complete stroke workup including EEG, CT scan of the head, MRI, CT angiograms. No major abnormalities. His left-sided weakness had resolved during his hospital stay and was believed per the neurology consultation notes to be related to his seizure disorder. He was discharged home on Depakote 500 mg twice daily and neurology follow-up. 11/17-11/19-patient was admitted at [facility] for strokelike symptoms with weakness on the left side. He again underwent MRI evaluation, CT angiograms which were unremarkable. Pharmacy: We called the patient's pharmacy. He has not filled any of his prescription medications including a prescription for Keppra 500 mg twice daily or Depakote 500 mg twice daily that were prescribed in November. 1330-patient reexamined. He is alert and oriented x 4. He is moving all 4 extremities without any difficulty. He speaks almost entirely in vulgar language and is threatening to staff. We called a family member to come to the bedside. Patient has documented mood disorder and comments about his behavior at previous hospitalization, it is unclear if this is baseline for the patient. Patient able to walk without difficulty. 1400-son arrived. Reports the patient is at his baseline. He feels comfortable bringing him home. Patient refuses urine culture. I instructed the patient that he needs to bead picker his prescriptions at [facility] that are waiting for him including Keppra and Depakote. Return precautions were discussed. Seizure precautions were given. He will follow-up with his neurologist at the [facility]. Son reports that he will help him bead picker his medications. The patient was discharged home. Medical Records Attestation: I reviewed the patient's medical records. Lab Data Attestation: I reviewed the patient's lab results. Labs: Lab Results 12/20/24 12/20/24 Range/Units 08:50 10:13 WBC 3.7 L (4.0-11.0) 10^3/uL RBC 4.92 (4.70-6.10) 10^6/uL Hgb 14.5 (14.0-18.0) g/dL Hct 43.0 (42.0-54.0) % MCV 87.4 (80.0-94.0) fL MCH 29.5 (25.9-34.0) pg MCHC 33.7 (29.9-35.2) g/dL RDW 13.4 (11.0-15.0) % Plt Count 202 (150-450) 10^3/uL MPV 8.8 L (9.5-13.5) fL Neut % (Auto) 76.4 H (43.0-75.0) % Lymph % (Auto) 14.9 L (20.5-60.0) % [place] % (Auto) 5.7 (1.7-12.0) % Eos % (Auto) 1.6 (0.9-7.0) % Baso % (Auto) 1.1 (0.2-2.0) % Neut # (Auto) 2.8 (1.4-6.5) 10^3/uL Lymph # (Auto) 0.6 L (1.2-3.8) 10^3/uL [place] # (Auto) 0.2 L (0.3-0.8) 10^3/uL Eos # (Auto) 0.1 (0.0-0.7) 10^3/uL Baso # (Auto) 0.0 (0.0-0.1) 10^3/uL Abs Immat Gran (auto) 0.01 (0.00-0.03) 10^3/uL Imm/Tot Granulo (auto) 0.3 (0.0-0.5) % PT 10.8 (9.0-11.6) sec INR 1.02 APTT <20.0 L (22.3-36.2) sec Puncture Site Rr ABG pH 7.434 (7.350-7.450) ABG pCO2 40.8 (35.0-45.0) mmHg ABG pO2 62.2 L (80.0-100.0) mmHg ABG HCO3 27.3 H (22.0-26.0) mmol/L ABG O2 Saturation 94.0 % ABG Base Excess 3.0 H (-2.0-2.0) mmol/L Johnny Test Positive (POSITIVE) Sodium 139 (136-145) mmol/L Potassium 4.0 (3.5-5.1) mmol/L Chloride 102 (98-107) mmol/L Carbon Dioxide 28.7 (21.0-32.0) mmol/L Anion Gap 12.3 BUN 15.0 (7.0-18.0) mg/dL Creatinine 1.21 (0.70-1.30) mg/dL Est GFR ( Amer) >60 (>=60 mL/min/1.73m^2) Est GFR (Non-Af Amer) 60 (>=60 mL/min/1.73m^2) BUN/Creatinine Ratio 12.4 Glucose 141 H (74-106) mg/dL Calcium 9.0 (8.5-10.1) mg/dL Total Bilirubin 0.8 (0.2-1.0) mg/dL AST 27 (15-37) U/L ALT 24 (16-63) U/L Alkaline Phosphatase 102 (46-116) U/L Troponin I High Sens 11.9 (4.0-76.1) pg/mL Total Protein 7.0 (6.4-8.2) g/dL Albumin 3.8 (3.4-5.0) g/dL Globulin 3.2 g/dL Albumin/Globulin Ratio 1.2 Ethanol Quant <3 mg/dL ABG Data Attestation: I have reviewed the pertinent ABG results. Imaging Data CT scan - head: Attestation: I have reviewed the pertinent imaging results. Radiologist's impression: ITS Impressions Chest X-Ray 12/20/24 08:53 IMPRESSION: There is no acute cardiopulmonary process. Electronically authenticated by: LUISANA TOLBERT Date: 12/20/2024 09:[address] 12/20/24 08:53 IMPRESSION: 1. No acute intracranial abnormality. MRI is more sensitive for the evaluation of acute ischemia. 2. Senescent changes. Electronically authenticated by: WOLF HARRINGTON Date: 12/20/2024 09:46 ECG Data Attestation: I personally reviewed and interpreted this ECG as follows: (Normal sinus rhythm at a rate of 73. No STEMI. Normal QTc. Nonspecific ST changes, unchanged from previous EKG. ) Discharge Plan Discharge Chief Complaint: Seizure Clinical Impression: Seizure, Medical non-compliance Patient Disposition: Home, Self-Care Time of Disposition Decision: 14:28 Condition: Good Mode of Transportation: Private Vehicle Prescriptions / Home Meds: No Action No Known Home Medications Print Language: Telugu Instructions: Recurrent Seizures in Adults (ED) Additional Instructions: Call the office of your primary care doctor to arrange for follow-up within the above-stated timeframe. Your ED visit was focused on your acute issue and does not replace primary care. You should review your labs, imaging, and diagnoses from this ED visit with your primary care physician. There may be non-emergent/ incidental findings that need further evaluation. You should review your vital signs including blood pressure with your PCP. If you were prescribed medications you should discuss possible side-effects and drug interactions with your pharmacist. Call 911 or go to the nearest Emergency Department if you develop any new or worsening symptoms. Seek immediate medical attention if you develop: additional seizures, fever, headache, nausea, vomiting, weakness, numbness, tingling, loss of motion in your arms or legs, chest pain, shortness of breath, or any new or worsening symptoms. Do not do any activities where it would be dangerous if you had a seizure. These activities include, but are not limited to: driving, operating machinery, swimming alone, bathing alone, riding a bike, rock climbing, etc.... Use caution when you are around stairs or other situations where it would be d angerous if you had a seizure. You are responsible for reporting your seizure to the [facility]. You should not drive a vehicle until cleared to do so by your doctor or your neurologist. Losing consciousness behind the wheel can be deadly for you and other people on the road. supervisor special effects your medications and begin taking them at [facility] Referrals: Physician,Non-Staff, MD [Primary Care Provider] - 1 week (Follow-up with your neurologist at the [facility].)
[2024-12-20 09:21] LABS: INR 1.02; Prothrombin Time 10.8 sec (9.0-11.6)
[2024-12-20] MEDS: LEVETIRACETAM 1,000 MG in 0.9 % SODIUM CHLORIDE 100 ML 440 MG IV (09:23)
[2024-12-20 09:26] LABS: Partial Thromboplastin Time <20.0 sec (22.3-36.2)
[2024-12-20 09:27] LABS: Alanine Aminotransferase 24 U/L (16-63); Albumin Globulin Ratio 1.2; Albumin Level 3.8 g/dL (3.4-5.0); Alkaline Phosphatase 102 U/L (46-116); Anion Gap 12.3; Aspartate Amino Transferase 27 U/L (15-37); BUN Creatinine Ratio 12.4; Bilirubin Total 0.8 mg/dL (0.2-1.0); Carbon Dioxide 28.7 mmol/L (21.0-32.0); Chloride 102 mmol/L (98-107); Estimated GFR (African America >60 (>=60 mL/min/1.73m^2); Estimated GFR (Non-African Ame 60 (>=60 mL/min/1.73m^2); Ethanol <3 mg/dL; Globulin 3.2 g/dL; Glucose 141 mg/dL (74-106); Sodium 139 mmol/L (136-145); Troponin I High Sensitivity 11.9 pg/mL (4.0-76.1)
[2024-12-20 10:21] LABS: pH ABG 7.434 (7.350-7.450)
[2024-12-20 10:22] LABS: ABG PCO2 40.8 mmHg (35.0-45.0); Allen Test POSITIVE (POSITIVE); HCO3 ABG 27.3 mmol/L (22.0-26.0); O2 Mode ROOM AIR; PO2 ABG 62.2 mmHg (80.0-100.0); Puncture Site RR
--- NOTE | 2024-12-20 14:12 | PC.NURSE ---
Patient Son here at this time. Son relay's that patient has been uncooperative like this in the past in the ER. Patient laying on cot on side and yelling at staff i'll get up when I want to . Son present in room with patient and will attempt to get patient up. Dr. Ludwig aware.
--- NOTE | 2024-12-20 14:23 | PC.NURSE ---
Patient up in room at this time. Ambulates to BR and back without difficulty, refuses to provide urine sample. Son states this is his normal behavior following seizure activity and Son is OK with taking patient home. Dr. Ludwig notified.
== END 2024-12-20 14:34 | disposition home or self-care (01) ==
PROVIDERS: Emergency Provider Student in an Organized Health Care Education/Training Program
DX: G40.909 Epilepsy, unspecified, not intractable, without status epilepticus (principal); J44.9 Chronic obstructive pulmonary disease, unspecified; F19.10 Other psychoactive substance abuse, uncomplicated; R53.1 Weakness; F39 Unspecified mood [affective] disorder; T50.996A Underdosing of other drugs, medicaments and biological substances, initial encounter; Z91.148 Patient's other noncompliance with medication regimen for other reason; Z79.899 Other long term (current) drug therapy
CPT/HCPCS: 36415; 36600; 70450; 71045; 80053; 80307; 80320; 81001; 82805; 84484; 85025; 85610; 85730; 93005; 96374; 99285; J1953

== ENCOUNTER 2025-01-19 11:07 | Emergency (ER) | payer OTHER, SELFPAY ==
[2025-01-19] VITALS (42 sets, daily range): BP systolic 130–237; BP diastolic 81–143; PULSE 69–135; TEMP 37.2–37.9; O2SAT 87–100; BMI 24.4
--- NOTE | 2025-01-19 11:12 | ECG_ITS ---
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 Measurements Intervals [place] Rate: 96 P: 90 SC: 170 QRS: 105 QRSD: 90 T: 75 QT: 330 QTc: 384 Interpretive Statements 1100 Sinus rhythm [address] depression [address] & Twave abnormality 7300 Indeterminate axis 9150 abnormal ECG Compared to ECG 12/20/2024 08:45:44 Indeterminate axis now present ST (T wave) deviation still present Electronically Signed On 01-20-2025 17:42:03 EDT by JACKY SIU M.D.
--- OUTSIDE RECORDS SUMMARY | 2025-01-19 11:14 | XMS_ITS | CCD ---
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 Applicator Name Role Phone INDURTI, ELIAN V Unavailable Unavailable INDURTI, ELIAN V Unavailable Unavailable Provider, None Unavailable Unavailable Donna Martinez Unavailable Unavailable Juan Donna Unavailable Unavailable PROVIDER, UNKNOWN Unavailable Unavailable PROVIDER, UNKNOWN Unavailable Unavailable REQUEST, DR NONE LISTED Primary Care Unavaila RADHA Key Admitting Unavailable RADHA OBRIEN Attending Unavailable DAINA, DR WOJCIECH Rivas Consulting UnavailRADHA Monique Consulting Unavailable VIC ADAMES Consulting Unavailable ANNA RICO Consulting Unavailable DO Sulaiman Feldman Primary Care Provider MD Magdy Douglass Admit Provider MD Kiko Maldonado Attending Provider [phone] MD Karley Nguyen Other Provider MD Patricio Galaviz Other Provider LEN Kent Other Provider DO Stevie Pichardo Jr Other Provider MD Danny Mills Other Provider MD Víctor Agrawal Other Provider MARY BLANTON Consulting Unavailable MARY BLANTON B Admitting Unavailable MARY BLANTON Attending Unavailable Sulaiman Feldman DO Primary Care Provider Ragini Carmona DO Emergency Provider [phone] Chaz Frey MD Admit Provider Yamila Donald MD Attending Provider [phone] Jaylin Fajardo RN Other Provider Unavailable Wojciech Horowitz MD Other Provider Dimitri NELSON, Julito Elizondo Other Provider [phone] Butch NELSON, Emy Other Provider Donna Marcelo Other Provider Unavailable Ubaldo Giles, [place] Other Provider Sivan Francois DO Other Provider Reno Hubbard MD Other Provider Thanh Kenney DO Other Provider Neville Bush DO Other Provider Bella Cano APRN Other Provider Prem TREVIÑO-CJanie Other Provider Lan COOK'S ASSISTANT-GRADES 7 AND 8 VISITING TEACHER-C, Alejandra Pantoja Other Provider Sulaiman Feldman DO Primary Care Provider Ragini Carmona DO Emergency Provider Chaz Frey MD Admit Provider Yamila Donald MD Attending Provider Donna Marcelo Other Provider Unavailable Ubaldo Giles, [place] Other Provider [phone] Sivan Francois DO Other Provider Reno Hubbard MD Other Provider Thanh Kenney DO Other Provider Neville Bush DO Other Provider Bella Cano APRN Other Provider Prem TREVIÑO-C, Janie Yates Other Provider Lan COOK'S ASSISTANT-GRADES 7 AND 8 VISITING TEACHER-C, Alejandra Pantoja Other Provider NO PCP, NO PCP Primary Care Unavailable [...] Consulting Unavailable Sivan Francois Consulting Unavailable Reno Hubbard Consulting Unavailable Thanh Kenney Consulting UnavailNeville Young Consulting Unavailable Bella Cano Consulting Unavailable Janie Amaro Consulting Unavailable Alejandra Montenegro Consulting Unavailable Allergies Allergy Classification Reported Allergen(s) Allergy Type Date of Onset Reaction(s) Facility (1 source) No Known Medication Allergies; Translations: [No Known Medication Allergies] Propensity to adverse reactions to drug (disorder) [facility] Repository (1 source) Codeine; Translations: [CODEINE] [...] 11-24-2022 Episodic Other aftercare (1 source) Other halfway (current) drug therapy; Translations: [OTH LOWERATOR OPERATOR CURRENT DRUG THERAPY] Onset: 11-28-2022 Episodic Other [...] 13.2 mmol/L Normal 6.0-15.0 e [facility] Comment on above: Performed By: #### C BCNO, BMP, MG #### [facility] [address] [place] [id number] [place] Calcium [Mass/Vol] 9.7 mg/dL Normal 8.6-10.3 [facility] Comment on above: Performed By: #### C BCNO, BMP, MG #### [facility] [address] [place] [id number] [place] Chloride [Moles/Vol] 105 mmol/L Normal 98-107 [facility] Comment on above: Performed By: #### C BCNO, BMP, MG #### [facility] [address] [place] [address] [place] CO2 [Moles/Vol] 25.2 mmol/L Normal 21.0-31.0 [facility] Comment on above: Performed By: #### C BCNO, BMP, MG #### [facility] [address] [place] [address] [place] Creatinine [Mass/Vol] 0.81 mg/dL Normal 0.70-1.30 [facility] Comment on above: Performed By: #### C BCNO, BMP, MG #### [facility] [address] [place] [address] [place] Creatinine Clr Calc Pharmacy 98.46 Normal [facility] Comment on above: Performed By: #### C BCNO, BMP, MG #### [facility] [address] [place] [address] [place] GFR/1.73 sq M.predicted MDRD (S/P/Bld) [Vol rate/Area] mL/min/{1.73_m2} Normal [facility] Comment on above: Performed By: #### C HATTIE, BMP, MG #### [facility] [address] [place] [address] [place] Glucose [Mass/Vol] 103 mg/dL High 70-100 [facility] Comment on above: Result Comment: [facility] Glucose Reference Range is dependent on time and content of last meal. Glucose of more than 200 mg/dL in a nonstressed, ambulatory subject supports the diagnosis of Diabetes Mellitus. ADA recommended reference range Performed By: #### C HATTIE BMP, MG #### [facility] [address] Potassium [Moles/Vol] 3.4 mmol/L Low 3.5-5.1 [facility] Comment on above: Performed By: #### C HATTIE BMP, MG #### [facility] [address] Sodium [Moles/Vol] 140 mmol/L Normal 136-145 [facility] Comment on above: Performed By: #### C HATTIE BMP, MG #### [facility] [address] Urea nitrogen [Mass/Vol] 19 mg/dL Normal 7-25 [facility] Comment on above: Performed By: #### C HATTIE BMP, MG #### [facility] [address] [place] [address] [place] Calcium [Mass/volume] in Ser um or PlasmaOrdered By: Yamila Donald on 11-19-2024 Calcium [Mass/Vol] Calcium [Mass/volume ] in Serum or Plasma 8.6-10.3 [facility] Carbon dioxide, total [Moles /volume] in Serum or PlasmaOrdered By: Yamila Donald on 11-19-2024 CO2 [Moles/Vol] Carbon dioxide, tota l [Moles/volume] in Serum or Plasma 21.0-31.0 [facility] Chloride [Moles/volume] in S andrei or PlasmaOrdered By: Yamila Donald on 11-19-2024 Chloride [Moles/Vol] Chloride [Moles/vol ume] in Serum or Plasma 98-107 [facility] Creatinine [Mass/volume] in Serum or PlasmaOrdered By: Yamila Donald on 11-19-2024 Creatinine [Mass/Vol] Creatinine [Mass/v olume] in Serum or Plasma 0.70-1.30 [facility] Erythrocyte distribution wid th Auto (RBC) [Ratio]Ordered By: Yamila Donald on 11-19-2024 Erythrocyte distribution width (RBC) [Ratio] Erythrocyte distribution width [Ratio] by Automated count 12.0-14.8 [facility] Glucose [Mass/volume] in Ser um or PlasmaOrdered By: Yamila Donald on 11-19-2024 Glucose [Mass/Vol] Glucose [Mass/volume ] in Serum or Plasma High 70-100 [facility] Comment on above: ADA recommended refe rence rangeRandom Glucose Reference Range is dependent on time and content of last meal. Glucose of more than 200 mg/dL in a nonstressed, ambulatory subject supports the diagnosis of Diabetes Mellitus. Hematocrit Auto (Bld) [Volum e fraction]Ordered By: Yamila Donald on 11-19-2024 Hematocrit (Bld) [Volume fraction] Hematocrit [Volume Fraction] of Blood by Automated count 38.8-50.0 [facility] Hemoglobin [Mass/volume] in BloodOrdered By: Yamila Donald on 11-19-2024 Hemoglobin (Bld) [Mass/Vol] Hemoglobin [Mass/volume] in Blood 13.0-17.0 [facility] Hemogram CBC Without Diffon 11-19-2024 Erythrocyte distribution width (RBC) [Ratio] 13.7 % Normal 12.0-14.8 [facility] Comment on above: Performed By: #### C BCNO, BMP, MG #### [address] Hematocrit (Bld) [Volume fraction] 45.8 % Normal 38.8-50.0 [facility] Comment on above: Performed By: #### C BCNO, BMP, MG #### [address] Hemoglobin (Bld) [Mass/Vol] 15.4 g/dL Normal 13.0-17.0 [facility] Comment on above: Performed By: #### C BCNO, BMP, MG #### [address] MCH (RBC) [Entitic mass] 29.0 pg Normal 27.5-35.2 [facility] Comment on above: Performed By: #### C BCNO, BMP, MG #### [address] MCV (RBC) [Entitic vol] 86.4 fL Normal 83.5-101 [facility] Comment on above: Performed By: #### C BCNO, BMP, MG #### [address] Mean Corpuscular HGB Conc 33.5 g/dL Normal 32.5-35.6 [facility] Comment on above: Performed By: #### C BCNO, BMP, MG #### [address] Platelet mean volume (Bld) [Entitic vol] 7.9 fL Normal 6.6-10.1 [facility] Comment on above: Result Comment: PERF ORMED BY: [place] [address] PATHOLOGIST LIFE COACH VÍCTOR LUCERO M.D. Performed By: #### C BCNO, BMP, MG #### [address] Platelets (Bld) [#/Vol] 203 10*3/uL Normal 150-450 [facility] Comment on above: Performed By: #### C BCNO, BMP, MG #### [address] RBC (Bld) [#/Vol] 5.31 10*6/uL Normal 3.90-5.60 [facility] Comment on above: Performed By: #### C BCNO, BMP, MG #### [facility] [address] WBC (Bld) [#/Vol] 8.2 10*3/uL Normal 4.1-10.5 [facility] Comment on above: Performed By: #### C BCNO, BMP, MG #### [facility] [address] Leukocytes [#/volume] correc srinivas for nucleated erythrocytes in Blood by Automated counOrdered By: Yamila Donald on 11-19-2024 WBC corrected for nucl RBC Auto (Bld) [#/Vol] Leukocytes [#/volume] corrected for nucleated erythrocytes in Blood by Automated coun 4.1-10.5 [facility] MCH Auto (RBC) [Entitic mass ]Ordered By: Yamila Donald on 11-19-2024 MCH (RBC) [Entitic mass] MCH [Entitic mass] by Automated count 27.5-35.2 [facility] MCHC Auto (RBC) [Mass/Vol]Or dered By: Yamila Donald on 11-19-2024 MCHC (RBC) [Mass/Vol] MCHC [Mass/volume] by Automated count 32.5-35.6 [facility] MCV Auto (RBC) [Entitic vol] Ordered By: Yamila Donald on 11-19-2024 MCV (RBC) [Entitic vol] MCV [Entitic volume] by Automated count 83.5-101 [facility] MR head/brain wo conon 11-19 MR head/brain wo con [facility] [address] MRI Report Signed Patient: Aaron Olivarez MR#: [id number] 00 : 1960 Acct:[id number] Age/Sex: 64 / M ADM Date: 11/18/24 Loc: Room: [address] [place] [address] Type: ADM IN Attending Dr: Yamila Donald [...] Regino Mckinley M.D.11/19/2024 4:50 PM Dictation Location: [place] [address] Transcribed By: [facility] 11/19/24 1650 Dictated By: Regino Mckinley MD 11/19/24 1644 Signed By: 11/19/24 1650 Normal [facility] Magnesiumon 11-19-2024 Magnesium [Mass/Vol] 1.7 mg/dL Low 1.9-2.7 [facility] Comment on above: Result Comment: PERF ORMED BY: [place] [address] PATHOLOGIST LIFE COACH VÍCTRO LUCERO M.D. Performed By: #### C BCNO, BMP, MG #### [address] Magnesium [Mass/volume] in S andrei or PlasmaOrdered By: Yamila Donald on 11-19-2024 Magnesium [Mass/Vol] Magnesium [Mass/vol ume] in Serum or Plasma Low 1.9-2.7 [facility] Magnetic resonance imaging r eportOrdered By: Regino Mckinley on 11-19-2024 Study report [facility] Main [place] [address] [place], [place] [id number] MRI Report Signed Patient: Aaron Olivarez MR#: [id number] : 1960 Acct:[id number] Age/Sex: 64 / M ADM Date: 5 Loc: Room: [address] [place] [address] Type: ADM IN Attending Dr: Yamila Donald [...] Regino Mckinley M.D.11/19/2024 4:50 PM Dictation Location: [place] [address] Transcribed By: [facility] 11/19/24 165 Dictated By: Regino Mckinley MD 11/19/24 1642 Signed By: 11/19/24 1650 [facility] Work Phone: No Panel InformationOrdered By: Yamila Donald on 11-19-2024 Estimated GFR (CKD-EPI) > 60.0 mL/Min [facility] Creatinine Clearance (Chem 98.46 [facility] Platelet mean volume Auto (B ld) [Entitic vol]Ordered By: Yamila Donald on 11-19-2024 Platelet mean volume (Bld) [Entitic vol] Platelet mean volume [Entitic volume] in Blood by Automated count 6.6-10.1 [facility] Platelets Auto (Bld) [#/Vol] Ordered By: Yamila Donald on 11-19-2024 Platelets (Bld) [#/Vol] Platelets [#/volume] in Blood by Automated count 150-450 [facility] Potassium [Moles/volume] in Serum or PlasmaOrdered By: Yamila Donald on 11-19-2024 Potassium [Moles/Vol] Potassium [Moles/v olume] in Serum or Plasma Low 3.5-5.1 [facility] RBC Auto (Bld) [#/Vol]Ordere d By: Yamila Donald on 11-19-2024 RBC (Bld) [#/Vol] Erythrocytes [#/volu me] in Blood by Automated count 3.90-5.60 [facility] Serum or plasma anion gap de terminationOrdered By: Yamila Donald on 11-19-2024 Anion gap [Moles/Vol] Serum or plasma an ion gap determination 6.0-15.0 [facility] Sodium [Moles/volume] in Ser um or PlasmaOrdered By: Yamila Donald on 11-19-2024 Sodium [Moles/Vol] Sodium [Moles/volume ] in Serum or Plasma 136-145 [facility] Urea nitrogen [Mass/volume] in Serum or PlasmaOrdered By: Yamila Wassoeduar on 11-19-2024 Urea nitrogen [Mass/Vol] Urea nitrogen [Mass/volume] in Serum or Plasma 7-25 [facility] Alanine aminotransferase [En zymatic activity/volume] in Serum or PlasmaOrdered By: Chaz Frey on 11-18-2024 ALT [Catalytic activity/Vol] Alanine aminotransferase [Enzymatic activity/volume] in Serum or Plasma 7-52 [facility] Albumin [Mass/volume] in Ser um or Plasma by Bromocresol green (BCG) dye binding methoOrdered By: Chaz Frey on 11-18-2024 Albumin BCG dye [Mass/Vol] Albumin [Mass/volume] in Serum or Plasma by Bromocresol green (BCG) dye binding metho 3.5-5.7 [facility] Alkaline phosphatase [Enzyma tic activity/volume] in Serum or PlasmaOrdered By: Chaz Frey on 11-18-2024 ALP [Catalytic activity/Vol] Alkaline phosphatase [Enzymatic activity/volume] in Serum or Plasma 34-104 [facility] Aspartate aminotransferase [ Enzymatic activity/volume] in Serum or PlasmaOrdered By: Chaz Frey on 11-18-2024 AST [Catalytic activity/Vol] Aspartate aminotransferase [Enzymatic activity/volume] in Serum or Plasma 13-39 [facility] Basophils Auto (Bld) [#/Vol] Ordered By: Chaz Frey on 11-18-2024 Basophils (Bld) [#/Vol] Automated basophil count 0.0-0.2 [facility] Basophils/100 WBC Auto (Bld) Ordered By: Chaz Frey on 11-18-2024 Basophils/100 WBC (Bld) Automated basophil % . [facility] Bilirubin.total [Mass/volume ] in Serum or PlasmaOrdered By: Chaz Frey on 11-18-2024 Bilirubin [Mass/Vol] Bilirubin.total [Mass/volume] in Serum or Plasma High 0.3-1.0 [facility] Calcium [Mass/volume] in Ser um or PlasmaOrdered By: Chaz Frey on 11-18-2024 Calcium [Mass/Vol] Calcium [Mass/volume ] in Serum or Plasma 8.6-10.3 [facility] Carbon dioxide, total [Moles /volume] in Serum or PlasmaOrdered By: Chaz Frey on 11-18-2024 CO2 [Moles/Vol] Carbon dioxide, tota l [Moles/volume] in Serum or Plasma High 21.0-31.0 [facility] Chloride [Moles/volume] in S andrei or PlasmaOrdered By: Chaz Frey on 11-18-2024 Chloride [Moles/Vol] Chloride [Moles/vol ume] in Serum or Plasma 98-107 [facility] Complete Blood Count Auto Di ffon 11-18-2024 Basophils (Bld) [#/Vol] 0.0 10*3/uL Normal 0.0-0.2 [facility] Comment on above: Result Comment: PERF ORMED BY: [place] [address] PATHOLOGIST LIFE COACH VÍCTOR LUCERO M.D. Performed By: #### C BC, PT, PTT, CK, HS TROP, CMP, PRL #### [address] Basophils/100 WBC (Bld) 0.6 % Normal . [facility] Comment on above: Performed By: #### C BC, PT, PTT, CK, HS TROP, CMP, PRL #### [address] Eosinophils (Bld) [#/Vol] 0.0 10*3/uL Normal 0.0-0.45 [facility] Comment on above: Performed By: #### C BC, PT, PTT, CK, HS TROP, CMP, PRL #### [address] Eosinophils/100 WBC (Bld) 0.1 % Normal . [facility] Comment on above: Performed By: #### C BC, PT, PTT, CK, HS TROP, CMP, PRL #### [address] Erythrocyte distribution width (RBC) [Ratio] 13.3 % Normal 12.0-14.8 [facility] Comment on above: Performed By: #### C BC, PT, PTT, CK, HS TROP, CMP, PRL #### [address] Hematocrit (Bld) [Volume fraction] 43.0 % Normal 38.8-50.0 [facility] Comment on above: Performed By: #### C BC, PT, PTT, CK, HS TROP, CMP, PRL #### [address] Hemoglobin (Bld) [Mass/Vol] 14.6 g/dL Normal 13.0-17.0 [facility] Comment on above: Performed By: #### C BC, PT, PTT, CK, HS TROP, CMP, PRL #### [address] Lymphocytes (Bld) [#/Vol] 1.4 10*3/uL Normal 1.00-4.8 [facility] Comment on above: Performed By: #### C BC, PT, PTT, CK, HS TROP, CMP, PRL #### [address] Lymphocytes/100 WBC (Bld) 20.9 % Normal . [facility] Comment on above: Performed By: #### C BC, PT, PTT, CK, HS TROP, CMP, PRL #### [address] MCH (RBC) [Entitic mass] 29.1 pg Normal 27.5-35.2 [facility] Comment on above: Performed By: #### C BC, PT, PTT, CK, HS TROP, CMP, PRL #### [address] MCV (RBC) [Entitic vol] 85.8 fL Normal 83.5-101 [facility] Comment on above: Performed By: #### C BC, PT, PTT, CK, HS TROP, CMP, PRL #### [address] Mean Corpuscular HGB Conc 33.9 g/dL Normal 32.5-35.6 [facility] Comment on above: Performed By: #### C BC, PT, PTT, CK, HS TROP, CMP, PRL #### [address] Monocytes (Bld) [#/Vol] 0.6 10*3/uL Normal 0.0-0.8 [facility] Comment on above: Performed By: #### C BC, PT, PTT, CK, HS TROP, CMP, PRL #### [address] Monocytes/100 WBC (Bld) 8.5 % Normal . [facility] Comment on above: Performed By: #### C BC, PT, PTT, CK, HS TROP, CMP, PRL #### [address] Neutrophils (Bld) [#/Vol] 4.7 10*3/uL Normal 1.8-7.7 [facility] Comment on above: Performed By: #### C BC, PT, PTT, CK, HS TROP, CMP, PRL #### [address] Neutrophils/100 WBC (Bld) 69.9 % Normal . [facility] Comment on above: Performed By: #### C BC, PT, PTT, CK, HS TROP, CMP, PRL #### [address] NRBC% 0.1 /100{WBC} Normal 0-0.5 [facility] Comment on above: Performed By: #### C BC, PT, PTT, CK, HS TROP, CMP, PRL #### [address] Platelet mean volume (Bld) [Entitic vol] 7.6 fL Normal 6.6-10.1 [facility] Comment on above: Performed By: #### C BC, PT, PTT, CK, HS TROP, CMP, PRL #### [place] [address] [place] Platelets (Bld) [#/Vol] 216 10*3/uL Normal 150-450 [facility] Comment on above: Performed By: #### C BC, PT, PTT, CK, HS TROP, CMP, PRL #### [place] [address] [place] RBC (Bld) [#/Vol] 5.01 10*6/uL Normal 3.90-5.60 [facility] Comment on above: Performed By: #### C BC, PT, PTT, CK, HS TROP, CMP, PRL #### [address] WBC (Bld) [#/Vol] 6.7 10*3/uL Normal 4.1-10.5 [facility] Comment on above: Performed By: #### C BC, PT, PTT, CK, HS TROP, CMP, PRL #### [address] Comprehensive Metabolic Pane wilner 11-18-2024 Albumin [Mass/Vol] 3.9 g/dL Normal 3.5-5.7 [facility] Comment on above: Performed By: #### C BC, PT, PTT, CK, HS TROP, CMP, PRL #### [address] Albumin/Globulin [Mass ratio] 1.6 {ratio} Normal [facility] Comment on above: Performed By: #### C BC, PT, PTT, CK, HS TROP, CMP, PRL #### [address] ALP [Catalytic activity/Vol] 93 U/L Normal 34-104 [facility] Comment on above: Performed By: #### C BC, PT, PTT, CK, HS TROP, CMP, PRL #### [address] ALT [Catalytic activity/Vol] 10 U/L Normal 7-52 [facility] Comment on above: Performed By: #### C BC, PT, PTT, CK, HS TROP, CMP, PRL #### [address] Anion gap [Moles/Vol] 9.7 mmol/L Normal 6.0-15.0 [facility] Comment on above: Performed By: #### C BC, PT, PTT, CK, HS TROP, CMP, PRL #### [place] [address] AST [Catalytic activity/Vol] 16 U/L Normal 13-39 [facility] Comment on above: Performed By: #### C BC, PT, PTT, CK, HS TROP, CMP, PRL #### [address] Bilirubin [Mass/Vol] 1.2 mg/dL High 0.3-1.0 [facility] Comment on above: Performed By: #### C BC, PT, PTT, CK, HS TROP, CMP, PRL #### [address] Calcium [Mass/Vol] 9.4 mg/dL Normal 8.6-10.3 [facility] Comment on above: Performed By: #### C BC, PT, PTT, CK, HS TROP, CMP, PRL #### [address] Chloride [Moles/Vol] 105 mmol/L Normal 98-107 [facility] Comment on above: Performed By: #### C BC, PT, PTT, CK, HS TROP, CMP, PRL #### [address] CO2 [Moles/Vol] 31.4 mmol/L High 21.0-31.0 [facility] Comment on above: Performed By: #### C BC, PT, PTT, CK, HS TROP, CMP, PRL #### [address] Creatinine [Mass/Vol] 1.10 mg/dL Normal 0.70-1.30 [facility] Comment on above: Performed By: #### C BC, PT, PTT, CK, HS TROP, CMP, PRL #### [address] Creatinine Clr Calc Pharmacy 72.51 Normal [facility] Comment on above: Performed By: #### C BC, PT, PTT, CK, HS TROP, CMP, PRL #### [place] [address] [place] GFR/1.73 sq M.predicted MDRD (S/P/Bld) [Vol rate/Area] mL/min/{1.73_m2} Normal [facility] Comment on above: Performed By: #### C BC, PT, PTT, CK, HS TROP, CMP, PRL #### [address] Globulin (S) [Mass/Vol] 2.4 g/dL Normal [facility] Comment on above: Performed By: #### C BC, PT, PTT, CK, HS TROP, CMP, PRL #### [address] Glucose [Mass/Vol] 113 mg/dL High 70-100 [facility] Comment on above: Result Comment: [facility] Glucose Reference Range is dependent on time and content of last meal. Glucose of more than 200 mg/dL in a nonstressed, ambulatory subject supports the diagnosis of Diabetes Mellitus. ADA recommended reference range Performed By: #### C BC, PT, PTT, CK, HS TROP, CMP, PRL #### [address] Potassium [Moles/Vol] 4.1 mmol/L Normal 3.5-5.1 [facility] Comment on above: Performed By: #### C BC, PT, PTT, CK, HS TROP, CMP, PRL #### [address] Protein [Mass/Vol] 6.3 g/dL Low 6.4-8.9 [facility] Comment on above: Performed By: #### C BC, PT, PTT, CK, HS TROP, CMP, PRL #### [address] Sodium [Moles/Vol] 142 mmol/L Normal 136-145 [facility] Comment on above: Performed By: #### C BC, PT, PTT, CK, HS TROP, CMP, PRL #### [address] Urea nitrogen [Mass/Vol] 22 mg/dL Normal 7-25 [facility] Comment on above: Performed By: #### C BC, PT, PTT, CK, HS TROP, CMP, PRL #### [facility] [address] [place] [id number] [facility] Creatinine [Mass/volume] in Serum or PlasmaOrdered By: Chaz Frey on 11-18-2024 Creatinine [Mass/Vol] Creatinine [Mass/v olume] in Serum or Plasma 0.70-1.30 [facility] echo transthoracicon [facility] echo transthoracic [facility] Main [place] [address] [place] [address] Echocardiogram Signed Patient: Aaron Olivarez MR#: [id number] 00 : 1960 Acct:[id number] Age/Sex: 64 / M ADM Date: 11/18/24 Loc: Room: [address] [place] [address] Type: ADM IN Attending Dr: Yamila Donald MD Ordering Provider: Chaz Frey MD Date of Service: 11/17/2404/06/1256 [facility] echo transthoracic: TIA Copies to: MD [...] MD 11/18/24 1643 Normal [facility] Eosinophils Auto (Bld) [#/Vo l]Ordered By: Chaz Frey on 11-18-2024 Eosinophils (Bld) [#/Vol] Automated eosinophil count 0.0-0.45 [facility] Eosinophils/100 WBC Auto (Bl d)Ordered By: Chaz Frey on 11-18-2024 Eosinophils/100 WBC (Bld) Automated eosinophil % . [facility] Erythrocyte distribution wid th Auto (RBC) [Ratio]Ordered By: Chaz Frey on 11-18-2024 Erythrocyte distribution width (RBC) [Ratio] Erythrocyte distribution width [Ratio] by Automated count 12.0-14.8 [facility] Globulin Calc (S) [Mass/Vol] Ordered By: Chaz Frey on 11-18-2024 Globulin (S) [Mass/Vol] Serum globulin measurement by calculation (mass/volume) [facility] Glucose [Mass/volume] in Ser um or PlasmaOrdered By: Chaz Frey on 11-18-2024 Glucose [Mass/Vol] Glucose [Mass/volume ] in Serum or Plasma High 70-100 [facility] Comment on above: ADA recommended refe rence rangeRandom Glucose Reference Range is dependent on time and content of last meal. Glucose of more than 200 mg/dL in a nonstressed, ambulatory subject supports the diagnosis of Diabetes Mellitus. Hematocrit Auto (Bld) [Volum e fraction]Ordered By: Chaz Frey on 11-18-2024 Hematocrit (Bld) [Volume fraction] Hematocrit [Volume Fraction] of Blood by Automated count 38.8-50.0 [facility] Hemoglobin [Mass/volume] in BloodOrdered By: Chaz Frey on 11-18-2024 Hemoglobin (Bld) [Mass/Vol] Hemoglobin [Mass/volume] in Blood 13.0-17.0 [facility] Leukocytes [#/volume] correc srinivas for nucleated erythrocytes in Blood by Automated counOrdered By: Chaz Frey on 11-18-2024 WBC corrected for nucl RBC Auto (Bld) [#/Vol] Leukocytes [#/volume] corrected for nucleated erythrocytes in Blood by Automated coun 4.1-10.5 [facility] Lymphocytes Auto (Bld) [#/Vo l]Ordered By: Chaz Frey on 11-18-2024 Lymphocytes (Bld) [#/Vol] Lymphocytes [#/volume] in Blood by Automated count 1.00-4.8 [facility] Lymphocytes/100 WBC Auto (Bl d)Ordered By: Chaz Frey on 11-18-2024 Lymphocytes/100 WBC (Bld) Lymphocytes/100 leukocytes in Blood by Automated count . [facility] MCH Auto (RBC) [Entitic mass ]Ordered By: Chaz Frey on 11-18-2024 MCH (RBC) [Entitic mass] MCH [Entitic mass] by Automated count 27.5-35.2 [facility] MCHC Auto (RBC) [Mass/Vol]Or dered By: Chaz Frey on 11-18-2024 MCHC (RBC) [Mass/Vol] MCHC [Mass/volume] by Automated count 32.5-35.6 [facility] MCV Auto (RBC) [Entitic vol] Ordered By: Chaz Frey on 11-18-2024 MCV (RBC) [Entitic vol] MCV [Entitic volume] by Automated count 83.5-101 [facility] Monocytes Auto (Bld) [#/Vol] Ordered By: Chaz Frey on 11-18-2024 Monocytes (Bld) [#/Vol] Automated blood monocyte count 0.0-0.8 [facility] Monocytes/100 WBC Auto (Bld) Ordered By: Chaz Frey on 11-18-2024 Monocytes/100 WBC (Bld) Automated monocyte % . [facility] Neutrophils Auto (Bld) [#/Vo l]Ordered By: Chaz Frey on 11-18-2024 Neutrophils (Bld) [#/Vol] Neutrophils [#/volume] in Blood by Automated count 1.8-7.7 [facility] Neutrophils/100 WBC Auto (Bl d)Ordered By: Chaz Frey on 11-18-2024 Neutrophils/100 WBC (Bld) Automated neutrophil % . [facility] No Panel InformationOrdered By: Chaz Frey on 11-18-2024 Estimated GFR (CKD-EPI) > 60.0 mL/Min [facility] Creatinine Clearance (Chem 72.51 [facility] Nucleated erythrocytes [Pres ence] in Blood by Automated countOrdered By: Chaz Frey on 11-18-2024 Nucleated RBC Auto Ql (Bld) Nucleated erythrocytes [Presence] in Blood by Automated count 0-0.5 [facility] Platelet mean volume Auto (B ld) [Entitic vol]Ordered By: Chaz Frey on 11-18-2024 Platelet mean volume (Bld) [Entitic vol] Platelet mean volume [Entitic volume] in Blood by Automated count 6.6-10.1 [facility] Platelets Auto (Bld) [#/Vol] Ordered By: Chaz Frey on 11-18-2024 Platelets (Bld) [#/Vol] Platelets [#/volume] in Blood by Automated count 150-450 [facility] Potassium [Moles/volume] in Serum or PlasmaOrdered By: Chaz Frey on 11-18-2024 Potassium [Moles/Vol] Potassium [Moles/v olume] in Serum or Plasma 3.5-5.1 [facility] Prolactinon 11-18-2024 Prolactin 16.14 ng/mL High 2.64-13.13 [facility] Comment on above: Result Comment: PERF ORMED BY: [place] [address] PATHOLOGIST [employer] VÍCTOR LUCERO M.D. Performed By: #### C BC, PT, PTT, CK, HS TROP, CMP, PRL #### [facility] [address] Prolactin [Mass/volume] in S andrei or PlasmaOrdered By: Chaz Frey on 11-18-2024 Prolactin [Mass/Vol] Prolactin [Mass/vol ume] in Serum or Plasma High 2.64-13.13 [facility] Protein [Mass/volume] in Ser um or PlasmaOrdered By: Chaz Frey on 11-18-2024 Protein [Mass/Vol] Protein [Mass/volume ] in Serum or Plasma Low 6.4-8.9 [facility] RBC Auto (Bld) [#/Vol]Ordere d By: Chaz Frey on 11-18-2024 RBC (Bld) [#/Vol] Erythrocytes [#/volu me] in Blood by Automated count 3.90-5.60 [facility] Serum or plasma albumin/glob ulin mass ratioOrdered By: Chaz Frey on 11-18-2024 Albumin/Globulin [Mass ratio] Serum or plasma albumin/globulin mass ratio [facility] Serum or plasma anion gap de terminationOrdered By: Chaz Frey on 11-18-2024 Anion gap [Moles/Vol] Serum or plasma an ion gap determination 6.0-15.0 [facility] Sodium [Moles/volume] in Ser um or PlasmaOrdered By: Chaz Frey on 11-18-2024 Sodium [Moles/Vol] Sodium [Moles/volume ] in Serum or Plasma 136-145 [facility] Troponin I High Sensitivityo n 11-18-2024 Troponin I High Sensitivity 26.6 pg/mL High 0.0-20.0 [facility] Comment on above: Result Comment: PERF ORMED BY: [facility] [address] [place] [id number] PATHOLOGIST [employer] VÍCTOR LUCERO M.D. Performed By: #### C BC, PT, PTT, CK, HS TROP, CMP, PRL #### [facility] [address] Troponin I.cardiac [Mass/vol ume] in Serum or Plasma by Detection limit <= 0.01 ng/Ordered By: Chaz Frey on 11-18-2024 Troponin I.cardiac DL <= 0.01 ng/mL [Mass/Vol] Troponin I.cardiac [Mass/volume] in Serum or Plasma by Detection limit <= 0.01 ng/ High 0.0-20.0 [facility] Urea nitrogen [Mass/volume] in Serum or PlasmaOrdered By: Chaz Frey on 11-18-2024 Urea nitrogen [Mass/Vol] Urea nitrogen [Mass/volume] in Serum or Plasma 7-25 [facility] WBC Auto (Bld) [#/Vol]Ordere d By: Chaz Frey on 11-18-2024 WBC (Bld) [#/Vol] Leukocytes [#/volume ] in Blood by Automated count 4.1-10.5 [facility] Amphetamine Screen Ql (U)Ord ered By: Ragini Carmona on 11-17-2024 Amphetamines Ql (U) Amphetamines screen High Negativ e [facility] Amphetamine cutoff [Mass/vol ume] in Urine for Confirmatory methodOrdered By: Chaz Frey on 11-17-2024 Amphetamine cutoff Confirm (U) [Mass/Vol] Amphetamine cutoff [Mass/volume] in Urine for Confirmatory method Ppjqxk=012 [facility] Amphetamine+Methamphetamine [Presence] in UrineOrdered By: Chaz rFey on 11-17-2024 Amphetamine+Methamphe tamine Ql (U) Amphetamine+Methamphetami ne [Presence] in Urine Abnormal Iionhw=[id number] [facility] Comment on above: Amphetamine test inc ludes Amphetamine and Methamphetamine. Amphetamines [Presence] in U rineOrdered By: Chaz Frey on 11-17-2024 Amphetamines Ql (U) Amphetamines [Presen ce] in Urine Abnormal . [facility] Amphetamines [Presence] in U rine by Screen methodOrdered By: Chaz Frey on 11-17-2024 Amphetamines Screen Ql (U) Amphetamines [Presence] in Urine by Screen method Sstpof=2114 [facility] Comment on above: Amphetamine test inc ludes Amphetamine and Methamphetamine. Appearance of UrineOrdered B y: Ragini Carmona on 11-17-2024 Appearance (U) Urine appearance Clear [facility] Bacteria [Presence] in Urine by AutomatedOrdered By: Ragini Carmona on 11-17-2024 Bacteria Auto Ql (U) Bacteria [Presence] in Urine by Automated None Seen [facility] Barbiturates [Presence] in U rine by Screen methodOrdered By: Ragini Carmona on 11-17-2024 Barbiturates Screen Ql (U) Barbiturates [Presence] in Urine by Screen method Bpyoke=463 [facility] Benzodiazepines Screen Ql (U )Ordered By: Ragini Carmona on 11-17-2024 Benzodiazepines Ql (U) Benzodiazepines [Presence] in Urine by Screen method High Negative [facility] Benzodiazepines [Presence] i n UrineOrdered By: Chaz Frey on 11-17-2024 Benzodiazepines Ql (U) Benzodiazepines [Presence] in Urine Mcqvsg=067 [facility] Benzoylecgonine [Presence] i n Urine by Screen methodOrdered By: Ragini Carmona on 11-17-2024 Benzoylecgonine Screen Ql (U) Benzoylecgonine [Presence] in Urine by Screen method Negative [facility] Bilirubin Test strip Ql (U)O rdered By: Ragini Carmona on 11-17-2024 Bilirubin Ql (U) Bilirubin.total [Presence] in Urine by Test strip Negative [facility] CT angio neckon 11-17-2024 CT angio neck [facility] [address] CT Scan Report Signed Patient: Aaron Olivarez MR#: [id number] 00 : 1960 Acct:[id number] Age/Sex: 64 / M ADM Date: 11/17/24 Loc: ER Room: Type: PRE ER Attending Dr: Copies to: Ragini Carmona DO Ordering Provider: Ragini M Tupa, DO Date of Service: 11/17/24 CT/CT angio head: cva ([id number]) CT/CT angio neck: cva CT angio head, [...] Dung Chakraborty M.D.11/17/2024 8:59 AM Dictation Location: [place] [address] Transcribed By: [facility] 11/17/24 0859 Dictated By: Dung Chakraborty II, MD 11/17/24 0852 Signed By: 11/17/24 0859 Normal [facility] CT head stroke alert wo cono n 11-17-2024 CT head stroke alert wo con [facility] [place] [address] [place] [address] CT Scan Report Signed Patient: Aaron Olivarez MR#: [id number] 00 : 1960 Acct:[id number] Age/Sex: 64 / M ADM Date: 11/17/24 [...] Dung Chakraborty M.D.11/17/2024 8:43 AM Dictation Location: [place] [address] Transcribed By: YNES 11/17/24 0843 Dictated By: Dung Chakraborty II, MD 11/17/24 0837 Signed By: 11/17/24 0843 Normal [facility] Cannabinoids [Mass/volume] i n Urine by Confirmatory methodOrdered By: Chaz Frey on 11-17-2024 Cannabinoids Confirm (U) [Mass/Vol] Cannabinoids [Mass/volume] in Urine by Confirmatory method Cutoff=50 [facility] Cannabinoids [Presence] in U rine by Screen methodOrdered By: Ragini Carmona on 11-17-2024 Cannabinoids Screen Ql (U) Cannabinoids [Presence] in Urine by Screen method Cutoff=50 [facility] Comment on above: These are unconfirme d results and should not be used for legal purposes. Drug Cut-Off Concentration: AMPH 1000 ng/mL BHASKAR 200 ng/mL RIKKI 200 ng/mL COCM 300 ng/mL OP 300 ng/mL PCP 25 ng/mL THC 20 ng/mL Color Auto (U)Ordered By: Noe Carmona on 11-17-2024 Color (U) Color of Urine by Auto Yellow [facility] Complete Blood Count Auto Di ffon 11-17-2024 Basophils (Bld) [#/Vol] 0.0 10*3/uL Normal 0.0-0.2 [facility] Comment on above: Result Comment: PERF ORMED BY: [place] [address] PATHOLOGIST [employer] VÍCTOR LUCERO M.D. Performed By: #### C BC, PT, PTT, CK, HS TROP, CMP, PRL #### [address] Basophils/100 WBC (Bld) 0.4 % Normal . [facility] Comment on above: Performed By: #### C BC, PT, PTT, CK, HS TROP, CMP, PRL #### [address] Eosinophils (Bld) [#/Vol] 0.0 10*3/uL Normal 0.0-0.45 [facility] Comment on above: Performed By: #### C BC, PT, PTT, CK, HS TROP, CMP, PRL #### [address] Eosinophils/100 WBC (Bld) 0.1 % Normal . [facility] Comment on above: Performed By: #### C BC, PT, PTT, CK, HS TROP, CMP, PRL #### [address] Erythrocyte distribution width (RBC) [Ratio] 13.6 % Normal 12.0-14.8 [facility] Comment on above: Performed By: #### C BC, PT, PTT, CK, HS TROP, CMP, PRL #### [address] Hematocrit (Bld) [Volume fraction] 46.4 % Normal 38.8-50.0 [facility] Comment on above: Performed By: #### C BC, PT, PTT, CK, HS TROP, CMP, PRL #### [address] Hemoglobin (Bld) [Mass/Vol] 15.6 g/dL Normal 13.0-17.0 [facility] Comment on above: Performed By: #### C BC, PT, PTT, CK, HS TROP, CMP, PRL #### [address] Lymphocytes (Bld) [#/Vol] 0.4 10*3/uL Low 1.00-4.8 [facility] Comment on above: Performed By: #### C BC, PT, PTT, CK, HS TROP, CMP, PRL #### [address] Lymphocytes/100 WBC (Bld) 4.4 % Normal . [facility] Comment on above: Performed By: #### C BC, PT, PTT, CK, HS TROP, CMP, PRL #### [address] MCH (RBC) [Entitic mass] 28.8 pg Normal 27.5-35.2 [facility] Comment on above: Performed By: #### C BC, PT, PTT, CK, HS TROP, CMP, PRL #### [address] MCV (RBC) [Entitic vol] 85.6 fL Normal 83.5-101 [facility] Comment on above: Performed By: #### C BC, PT, PTT, CK, HS TROP, CMP, PRL #### [address] Mean Corpuscular HGB Conc 33.6 g/dL Normal 32.5-35.6 [facility] Comment on above: Performed By: #### C BC, PT, PTT, CK, HS TROP, CMP, PRL #### [address] Monocytes (Bld) [#/Vol] 0.3 10*3/uL Normal 0.0-0.8 [facility] Comment on above: Performed By: #### C BC, PT, PTT, CK, HS TROP, CMP, PRL #### [address] Monocytes/100 WBC (Bld) 15.39 % Normal 0.00-20.00 [facility] Comment on above: Performed By: #### C BC, PT, PTT, CK, HS TROP, CMP, PRL #### [address] Monocytes/100 WBC (Bld) 3.3 % Normal . [facility] Comment on above: Performed By: #### C BC, PT, PTT, CK, HS TROP, CMP, PRL #### [place] [address] [place] Neutrophils (Bld) [#/Vol] 9.2 10*3/uL High 1.8-7.7 [facility] Comment on above: Performed By: #### C BC, PT, PTT, CK, HS TROP, CMP, PRL #### [address] Neutrophils/100 WBC (Bld) 91.8 % Normal . [facility] Comment on above: Performed By: #### C BC, PT, PTT, CK, HS TROP, CMP, PRL #### [address] NRBC% 0.1 /100{WBC} Normal 0-0.5 [facility] Comment on above: Performed By: #### C BC, PT, PTT, CK, HS TROP, CMP, PRL #### [address] Platelet mean volume (Bld) [Entitic vol] 7.3 fL Normal 6.6-10.1 [facility] Comment on above: Performed By: #### C BC, PT, PTT, CK, HS TROP, CMP, PRL #### [address] Platelets (Bld) [#/Vol] 280 10*3/uL Normal 150-450 [facility] Comment on above: Performed By: #### C BC, PT, PTT, CK, HS TROP, CMP, PRL #### [address] RBC (Bld) [#/Vol] 5.42 10*6/uL Normal 3.90-5.60 [facility] Comment on above: Performed By: #### C BC, PT, PTT, CK, HS TROP, CMP, PRL #### [address] WBC (Bld) [#/Vol] 10.1 10*3/uL Normal 4.1-10.5 [facility] Comment on above: Performed By: #### C BC, PT, PTT, CK, HS TROP, CMP, PRL #### [address] Comprehensive Metabolic Pane wilner 11-17-2024 Albumin [Mass/Vol] 4.2 g/dL Normal 3.5-5.7 [facility] Comment on above: Performed By: #### C BC, PT, PTT, CK, HS TROP, CMP, PRL #### [address] Albumin/Globulin [Mass ratio] 1.7 {ratio} Normal [facility] Comment on above: Performed By: #### C BC, PT, PTT, CK, HS TROP, CMP, PRL #### [address] ALP [Catalytic activity/Vol] 95 U/L Normal 34-104 [facility] Comment on above: Performed By: #### C BC, PT, PTT, CK, HS TROP, CMP, PRL #### [address] ALT [Catalytic activity/Vol] 12 U/L Normal 7-52 [facility] Comment on above: Performed By: #### C BC, PT, PTT, CK, HS TROP, CMP, PRL #### [address] Anion gap [Moles/Vol] 13.0 mmol/L Normal 6.0-15.0 [facility] Comment on above: Performed By: #### C BC, PT, PTT, CK, HS TROP, CMP, PRL #### [address] AST [Catalytic activity/Vol] 24 U/L Normal 13-39 [facility] Comment on above: Performed By: #### C BC, PT, PTT, CK, HS TROP, CMP, PRL #### [address] Bilirubin [Mass/Vol] 0.6 mg/dL Normal 0.3-1.0 [facility] Comment on above: Performed By: #### C BC, PT, PTT, CK, HS TROP, CMP, PRL #### [address] Calcium [Mass/Vol] 9.1 mg/dL Normal 8.6-10.3 [facility] Comment on above: Performed By: #### C BC, PT, PTT, CK, HS TROP, CMP, PRL #### [address] Chloride [Moles/Vol] 104 mmol/L Normal 98-107 [facility] Comment on above: Performed By: #### C BC, PT, PTT, CK, HS TROP, CMP, PRL #### [address] CO2 [Moles/Vol] 29.2 mmol/L Normal 21.0-31.0 [facility] Comment on above: Performed By: #### C BC, PT, PTT, CK, HS TROP, CMP, PRL #### [address] Creatinine [Mass/Vol] 1.27 mg/dL Normal 0.70-1.30 [facility] Comment on above: Performed By: #### C BC, PT, PTT, CK, HS TROP, CMP, PRL #### [address] GFR/1.73 sq M.predicted MDRD (S/P/Bld) [Vol rate/Area] mL/min/{1.73_m2} Normal [facility] Comment on above: Performed By: #### C BC, PT, PTT, CK, HS TROP, CMP, PRL #### [address] Globulin (S) [Mass/Vol] 2.5 g/dL Normal [facility] Comment on above: Performed By: #### C BC, PT, PTT, CK, HS TROP, CMP, PRL #### [address] Glucose [Mass/Vol] 163 mg/dL High 70-100 [facility] Comment on above: Result Comment: [facility] Glucose Reference Range is dependent on time and content of last meal. Glucose of more than 200 mg/dL in a nonstressed, ambulatory subject supports the diagnosis of Diabetes Mellitus. ADA recommended reference range Performed By: #### C BC, PT, PTT, CK, HS TROP, CMP, PRL #### [address] Potassium [Moles/Vol] 4.2 mmol/L Normal 3.5-5.1 [facility] Comment on above: Performed By: #### C BC, PT, PTT, CK, HS TROP, CMP, PRL #### [address] Protein [Mass/Vol] 6.7 g/dL Normal 6.4-8.9 [facility] Comment on above: Performed By: #### C BC, PT, PTT, CK, HS TROP, CMP, PRL #### [address] Sodium [Moles/Vol] 142 mmol/L Normal 136-145 [facility] Comment on above: Performed By: #### C BC, PT, PTT, CK, HS TROP, CMP, PRL #### [address] Urea nitrogen [Mass/Vol] 16 mg/dL Normal 7-25 [facility] Comment on above: Performed By: #### C BC, PT, PTT, CK, HS TROP, CMP, PRL #### [address] Creatine Kinaseon 11-17-2024 CK [Catalytic activity/Vol] 134 U/L Normal 30-223 [facility] Comment on above: Performed By: #### C BC, PT, PTT, CK, HS TROP, CMP, PRL #### [address] Creatine kinase [Enzymatic a ctivity/volume] in Serum or PlasmaOrdered By: Ragini Carmona on 11-17-2024 CK [Catalytic activity/Vol] Creatine kinase [Enzymatic activity/volume] in Serum or Plasma 30- [facility] Dipstick and Microscopicon 0 11-17-2024 Appearance (U) Clear Normal Clear [facility] Comment on above: Order Comment: Name Collection Type:: Clean-Voided Midstream Performed By: #### C BC, PT, PTT, CK, HS TROP, CMP, PRL #### [address] Bacteria,Urine None Seen Normal None Seen [facility] Comment on above: Order Comment: Name Collection Type:: Clean-Voided Midstream Performed By: #### C BC, PT, PTT, CK, HS TROP, CMP, PRL #### [facility] [address] [place] [address] [place] Bilirubin,Urine Negative Normal Negative [facility] Comment on above: Order Comment: Name Collection Type:: Clean-Voided Midstream Performed By: #### C BC, PT, PTT, CK, HS TROP, CMP, PRL #### [facility] [address] Color (U) Yellow Normal Yellow [facility] Comment on above: Order Comment: Name Collection Type:: Clean-Voided Midstream Performed By: #### C BC, PT, PTT, CK, HS TROP, CMP, PRL #### [address] Glucose Ql (U) 70 mg/dL High Normal [facility] Comment on above: Order Comment: Name Collection Type:: Clean-Voided Midstream Performed By: #### C BC, PT, PTT, CK, HS TROP, CMP, PRL #### [address] Hyaline Casts,Urine None Normal 0-8 [facility] Comment on above: Order Comment: Name Collection Type:: Clean-Voided Midstream Performed By: #### C BC, PT, PTT, CK, HS TROP, CMP, PRL #### [place] [address] [place] Ketones Ql (U) Negative Normal Negative [facility] Comment on above: Order Comment: Name Collection Type:: Clean-Voided Midstream Performed By: #### C BC, PT, PTT, CK, HS TROP, CMP, PRL #### [place] [address] [place] Leukocyte esterase Test strip Ql (U) Negative Normal Negative [facility] Comment on above: Order Comment: Name Collection Type:: Clean-Voided Midstream Performed By: #### C BC, PT, PTT, CK, HS TROP, CMP, PRL #### [place] [address] [place] Mucus,Urine Rare Normal [facility] Comment on above: Order Comment: Name Collection Type:: Clean-Voided Midstream Result Comment: PERF ORMED BY: [place] [address] PATHOLOGIST [employer] VÍCTOR LUCERO M.D. Performed By: #### C BC, PT, PTT, CK, HS TROP, CMP, PRL #### [address] Nitrite,Urine Negative Normal Negative [facility] Comment on above: Order Comment: Name Collection Type:: Clean-Voided Midstream Performed By: #### C BC, PT, PTT, CK, HS TROP, CMP, PRL #### [address] Occult Blood,Urine Negative Normal Negative [facility] Comment on above: Order Comment: Name Collection Type:: Clean-Voided Midstream Performed By: #### C BC, PT, PTT, CK, HS TROP, CMP, PRL #### [address] pH (U) 6.5 [pH] Normal 5.0-9.0 [facility] Comment on above: Order Comment: Name Collection Type:: Clean-Voided Midstream Performed By: #### C BC, PT, PTT, CK, HS TROP, CMP, PRL #### [address] Protein (U) [Mass/Vol] 70 mg/dL High Negative [facility] Comment on above: Order Comment: Name Collection Type:: Clean-Voided Midstream Performed By: #### C BC, PT, PTT, CK, HS TROP, CMP, PRL #### [address] RBC,Urine 3 [HPF] Normal 0-4 [facility] Comment on above: Order Comment: Name Collection Type:: Clean-Voided Midstream Performed By: #### C BC, PT, PTT, CK, HS TROP, CMP, PRL #### [address] Specificy [place],Urine >1.050 High 1.001-1.030 [facility] Comment on above: Order Comment: Name Collection Type:: Clean-Voided Midstream Result Comment: Rech ecked by refractometer Performed By: #### C BC, PT, PTT, CK, HS TROP, CMP, PRL #### [address] Squamous Epithelial Cell,Urine 1 [HPF] Normal 0-2 [facility] Comment on above: Order Comment: Name Collection Type:: Clean-Voided Midstream Performed By: #### C BC, PT, PTT, CK, HS TROP, CMP, PRL #### [address] Urobilinogen,Urine Normal Normal Normal [facility] Comment on above: Order Comment: Name Collection Type:: Clean-Voided Midstream Performed By: #### C BC, PT, PTT, CK, HS TROP, CMP, PRL #### [address] WBC,Urine 1 [HPF] Normal 0-4 [facility] Comment on above: Order Comment: Name Collection Type:: Clean-Voided Midstream Performed By: #### C BC, PT, PTT, CK, HS TROP, CMP, PRL #### [address] Drug Screen,Urineon 11-17-19 25 Amphetamine Screen,Urine Positive High Negative [facility] Comment on above: Performed By: #### C BC, PT, PTT, CK, HS TROP, CMP, PRL #### [address] Barbiturate Screen,Urine Negative Normal Negative [facility] Comment on above: Performed By: #### C BC, PT, PTT, CK, HS TROP, CMP, PRL #### [address] Benzodiazepines Screen,Urine Positive High Negative [facility] Comment on above: Performed By: #### C BC, PT, PTT, CK, HS TROP, CMP, PRL #### [address] Cannabinoid Screen,Urine Positive High Negative [facility] Comment on above: Result Comment: Thes e are unconfirmed results and should not be used for legal purposes. Drug Cut-Off Concentration: AMPH 1000 ng/mL BHASKAR 200 ng/mL RIKKI 200 ng/mL COCM 300 ng/mL OP 300 ng/mL PCP 25 ng/mL THC 20 ng/mL PERFORMED BY: [place] [address] PATHOLOGIST LIFE COACH VÍCTOR LUCERO M.D. Performed By: #### C BC, PT, PTT, CK, HS TROP, CMP, PRL #### [address] Cocaine Screen,Urine Negative Normal Negative [facility] Comment on above: Performed By: #### C BC, PT, PTT, CK, HS TROP, CMP, PRL #### [address] Opiate Screen,Urine Negative Normal Negative [facility] Comment on above: Performed By: #### C BC, PT, PTT, CK, HS TROP, CMP, PRL #### [address] Phencyclidine Screen,Urine Negative Normal Negative [facility] Comment on above: Performed By: #### C BC, PT, PTT, CK, HS TROP, CMP, PRL #### [address] ECG 12 lead ECGon 11-17-2024 ECG 12 lead ECG [facility] Main [place] [address] [place] [address] Electrocardiograph Report Signed Patient: Aaron Olivarez MR#: [id number] 00 : 1960 Acct:[id number] Age/Sex: 64 / M ADM Date: 11/17/24 Loc: Room: [address] [place] [address] Type: ADM INOo Attending Dr: Chaz Frey [...] Carmona DO 1445 Normal [facility] Epithelial cells.squamous [# /area] in Urine sediment by Automated countOrdered By: Ragini Carmona on 11-17-2024 Epithelial cells.squamous Auto (Urine sed) [#/Area] Epithelial cells.squamous [#/area] in Urine sediment by Automated count 0-2 [facility] Erythrocyte Sedimentation Ra irene 11-17-2024 ESR (Bld) [Velocity] 2 mm/h Normal 0-19 [facility] Comment on above: Result Comment: PERF ORMED BY: [place] [address] PATHOLOGIST LIFE COACH VÍCTOR LUCERO M.D. Performed By: #### C BC, PT, PTT, CK, HS TROP, CMP, PRL #### [facility] [address] [place] [address] Erythrocyte sedimentation ra te by Photometric methodOrdered By: Chaz Frey on 11-17-2024 ESR Photometric method (Bld) [Velocity] Erythrocyte sedimentation rate by Photometric method 0-19 [facility] Erythrocytes [#/area] in Uri ne sediment by Automated countOrdered By: Ragini Carmona on 11-17-2024 RBC Auto (Urine sed) [#/Area] Erythrocytes [#/area] in Urine sediment by Automated count 0-4 [facility] Ethanol [Mass/volume] in Ser um or PlasmaOrdered By: Ragini Carmona on 11-17-2024 Ethanol [Mass/Vol] Ethanol [Mass/volume ] in Serum or Plasma [facility] Comment on above: Test not performed Ethyl Alcohol Profileon Ethanol [Mass/Vol] mg/dL Normal [facility] Comment on above: Performed By: #### C BC, PT, PTT, CK, HS TROP, CMP, PRL #### [facility] [address] [place] [address] [place] Percent Ethanol Not performed Normal [facility] Comment on above: Result Comment: PERF ORMED BY: [facility] [address] [place] [address] PATHOLOGIST LIFE COACH VÍCTOR LUCERO M.D. Performed By: #### C BC, PT, PTT, CK, HS TROP, CMP, PRL #### [facility] [address] [place] [address] [facility] Glucose Glucometer (BldC) [M ass/Vol]Ordered By: Ragini Carmona on 11-17-2024 Glucose [Mass/Vol] Capillary blood gluc ose measurement by glucometer (mass/volume) [facility] Comment on above: Random Glucose Refer ence Range is dependent on time and content of last meal. Glucose of more than 200 mg/dL in a nonstressed, ambulatory subject supports the diagnosis of Diabetes Mellitus. Glucose Poct Glucometerson 0 11-17-2024 Glucose [Mass/Vol] 175 mg/dL Normal [facility] Comment on above: Result Comment: [place] om Glucose Reference Range is dependent on time and content of last meal. Glucose of more than 200 mg/dL in a nonstressed, ambulatory subject supports the diagnosis of Diabetes Mellitus. PERFORMED BY: [facility] [address] [facility] [address] PATHOLOGIST LIFE COACH VÍCTOR LUCERO M.D. Performed By: #### C BC, PT, PTT, CK, HS TROP, CMP, PRL #### [facility] [address] [place] [address] [facility] Glucose [Mass/volume] in Uri ne by Test stripOrdered By: Ragini Carmona on 11-17-2024 Glucose Test strip (U) [Mass/Vol] Glucose [Mass/volume] in Urine by Test strip High Normal [facility] Hemoglobin Test strip Ql (U) Ordered By: Ragini Carmona on 11-17-2024 Hemoglobin Ql (U) Hemoglobin [Presence ] in Urine by Test strip Negative [facility] Hyaline casts [#/area] in Ur ine sediment by Automated countOrdered By: Ragini Carmona on 11-17-2024 Hyaline casts Auto (Urine sed) [#/Area] Hyaline casts [#/area] in Urine sediment by Automated count 0-8 [facility] INR in Platelet poor plasma by Coagulation assayOrdered By: Ragini Carmona on 11-17-2024 INR Coag (PPP) [Relative time] INR in Platelet poor plasma by Coagulation assay [facility] Comment on above: INR Therapeutic Rang e [...] i n Urine by Test strip Negative [facility] Leukocyte esterase [Presence ] in Urine by Test stripOrdered By: Ragini Carmona on 11-17-2024 Leukocyte esterase Test strip Ql (U) Leukocyte esterase [Presence] in Urine by Test strip Negative [facility] Leukocytes [#/area] in Urine sediment by Automated countOrdered By: Ragini Carmona on 11-17-2024 WBC Auto (Urine sed) [#/Area] Leukocytes [#/area] in Urine sediment by Automated count 0-4 [facility] Magnesiumon 11-17-2024 Magnesium [Mass/Vol] 1.9 mg/dL Normal 1.9-2.7 [facility] Comment on above: Order Comment: Comme nt add on Result Comment: PERF ORMED BY: [facility] [address] [place] [address] PATHOLOGIST LIFE COACH VÍCTOR LUCERO M.D. Performed By: #### C BC, PT, PTT, CK, HS TROP, CMP, PRL #### [facility] [address] Magnesium [Mass/volume] in S andrei or PlasmaOrdered By: Chaz Frey on 11-17-2024 Magnesium [Mass/Vol] Magnesium [Mass/vol ume] in Serum or Plasma 1.9-2.7 [facility] Methamphetamine [Presence] i n UrineOrdered By: Chaz Frey on 11-17-2024 Methamphetamine Ql (U) Methamphetamine [Presence] in Urine Abnormal . [facility] Methamphetamine cutoff [Mass /volume] in Urine for Confirmatory methodOrdered By: Chaz Frey on 11-17-2024 Methamphetamine cutoff Confirm (U) [Mass/Vol] Methamphetamine cutoff [Mass/volume] in Urine for Confirmatory method Uneldt=082 [facility] Monocyte distribution width [Entitic volume] in Blood by AutomatedOrdered By: Ragini Carmona on 11-17-2024 Monocyte distribution width Auto (Bld) [Entitic vol] Monocyte distribution width [Entitic volume] in Blood by Automated 0.00-20.00 [facility] Mucus [Presence] in Urine by AutomatedOrdered By: Ragini Carmona on 11-17-2024 Mucus Auto Ql (U) Mucus [Presence] in Urine by Automated [facility] Nitrite Test strip Ql (U)Ord ered By: Ragini Carmona on 11-17-2024 Nitrite Ql (U) Nitrite [Presence] i n Urine by Test strip Negative [facility] Opiates [Presence] in UrineO rdered By: Chaz Frey on 11-17-2024 Opiates Ql (U) Opiates [Presence] i n Urine Ayydwj=433 [facility] Comment on above: Opiate test includes Codeine and Morphine only. Opiates [Presence] in Urine by Screen methodOrdered By: Ragini Carmona on 11-17-2024 Opiates Screen Ql (U) Opiates [Presence] in Urine by Screen method Negative [facility] Partial Thromboplastin Timeo n 11-17-2024 aPTT Coag (Bld) [Time] 22.3 s Low 25.1-36.5 [facility] Comment on above: Result Comment: A he matocrit value greater than 55% may lead to inaccurate results in coagulation testing. Patients having hematocrit values >55% require a special collection tube for coagulation studies. Please contact the laboratory at [phone] for redraw instructions. PERFORMED BY: [place] [id number] PATHOLOGIST LIFE COACH VÍCTOR LUCERO M.D. Performed By: #### C BC, PT, PTT, CK, HS TROP, CMP, PRL #### [address] [address] [facility] Phencyclidine Screen Ql (U)O rdered By: Ragini Carmona on 11-17-2024 Phencyclidine Ql (U) Phencyclidine [Pres ence] in Urine by Screen method Negative [facility] Phencyclidine [Presence] in UrineOrdered By: Chaz Frey on 11-17-2024 Phencyclidine Ql (U) Phencyclidine [Pres ence] in Urine Cutoff=25 [facility] Comment on above: Performed at: [facility] [id number] [place], [place] [id number] Director: Adenike Panchal PhD, Phone: [phone] Prolactinon 11-17-2024 Prolactin 14.22 ng/mL High 2.64-13.13 [facility] Comment on above: Result Comment: PERF ORMED BY: [place] [address] PATHOLOGIST LIFE COACH VÍCTOR LUCERO M.D. Performed By: #### C BC, PT, PTT, CK, HS TROP, CMP, PRL #### [place] [id number] [facility] Protein Test strip (U) [Mass /Vol]Ordered By: Ragini Carmona on 11-17-2024 Protein (U) [Mass/Vol] Protein [Mass/volume] in Urine by Test strip High Negative [facility] Prothrombin Time INRon 11-17 INR Coag (PPP) [Relative time] 1.0 {INR} Normal [facility] Comment on above: Result Comment: [...] PTT, CK, HS TROP, CMP, PRL #### [facility] [address] PT Coag (PPP) [Time] 11.9 s Normal 9.0-12.9 [facility] Comment on above: Result Comment: A he matocrit value greater than 55% may lead to inaccurate results in coagulation testing. Patients having hematocrit values >55% require a special collection tube for coagulation studies. Please contact the laboratory at [phone] for redraw instructions. Performed By: #### C BC, PT, PTT, CK, HS TROP, CMP, PRL #### [facility] [address] Prothrombin time (PT)Ordered By: Ragini Carmona on 11-17-2024 PT Coag (PPP) [Time] Prothrombin time (PT) 9.0- 12.9 [facility] Comment on above: A hematocrit value g reater than 55% may lead to inaccurate results in coagulation testing. Patients having hematocrit values >55% require a special collection tube for coagulation studies. Please contact the laboratory at [phone] for redraw instructions. Specific gravity of Urine by RefractometryOrdered By: Ragini Carmona on 11-17-2024 Specific gravity Refractometry (U) [Rel density] Specific gravity of Urine by Refractometry High 1.001-1.030 [facility] Comment on above: Rechecked by refract ometer Troponin I High Sensitivityo n 11-17-2024 Troponin I High Sensitivity 36.7 pg/mL High 0.0-20.0 [facility] Comment on above: Result Comment: PERF ORMED BY: [place] [address] PATHOLOGIST LIFE COACH VÍCTOR LUCERO M.D. Performed By: #### C BC, PT, PTT, CK, HS TROP, CMP, PRL #### [address] Troponin I High Sensitivity 21.1 pg/mL High 0.0-20.0 [facility] Comment on above: Result Comment: PERF ORMED BY: [place] [address] PATHOLOGIST LIFE COACH VÍCTOR LUCERO M.D. Performed By: #### C BC, PT, PTT, CK, HS TROP, CMP, PRL #### [address] Urine Drug Screen w/Confirmo n 11-17-2024 Amphetamines GC/MS Confirm, Ur 527 ng/mL Normal Qmdrco=685 [facility] Comment on above: Performed By: #### C BC, PT, PTT, CK, HS TROP, CMP, PRL #### [address] Amphetamines, Ur See Final Results Normal Yonibf=4239 [facility] Comment on above: Result Comment: Amph etamine test includes Amphetamine and Methamphetamine. Performed By: #### C BC, PT, PTT, CK, HS TROP, CMP, PRL #### [address] Amphetamines, Ur Positive Critically abnormal . [facility] Comment on above: Result Comment: Amph etamine test includes Amphetamine and Methamphetamine. Performed By: #### C BC, PT, PTT, CK, HS TROP, CMP, PRL #### [address] Barbiturate, Ur Negative Normal Cozpdi=201 [facility] Comment on above: Performed By: #### C BC, PT, PTT, CK, HS TROP, CMP, PRL #### [address] Benzodiazepines, Ur See Final Results Normal Cutoff=30 0 [facility] Comment on above: Performed By: #### C BC, PT, PTT, CK, HS TROP, CMP, PRL #### [address] Benzodiazepines, Urine Negative Normal Polxie=683 [facility] Comment on above: Performed By: #### C BC, PT, PTT, CK, HS TROP, CMP, PRL #### [facility] [address] Cannabinoid, Ur See Final Results Normal Cutoff=50 [facility] Comment on above: Performed By: #### C BC, PT, PTT, CK, HS TROP, CMP, PRL #### [address] Cannabinoid, Urine Negative Normal Cutoff=50 [facility] Comment on above: Result Comment: PERF ORMED BY: [place] [address] PATHOLOGIST LIFE COACH VÍCTOR LUCERO M.D. Performed By: #### C BC, PT, PTT, CK, HS TROP, CMP, PRL #### [address] Cocaine (Metab), Ur Negative Normal Xsuuug=787 [facility] Comment on above: Performed By: #### C BC, PT, PTT, CK, HS TROP, CMP, PRL #### [address] Methamphetamine Positive Critically abnormal . [facility] Comment on above: Performed By: #### C BC, PT, PTT, CK, HS TROP, CMP, PRL #### [address] Methamphetamines GC/MS, Ur >3000 Normal Qiwbwj=749 [facility] Comment on above: Performed By: #### C BC, PT, PTT, CK, HS TROP, CMP, PRL #### [address] Opaites, Ur Negative Normal Dspyrq=251 [facility] Comment on above: Result Comment: Opia te test includes Codeine and Morphine only. Performed By: #### C BC, PT, PTT, CK, HS TROP, CMP, PRL #### [place] [address] [place] Phencyclidine, Ur Negative Normal Cutoff=25 [facility] Comment on above: Result Comment: Perf ormed at: [facility] [address] [place], [place] [id number] Waste Specialist: Adenike Panchal PhD, Phone: [phone] Performed By: #### C BC, PT, PTT, CK, HS TROP, CMP, PRL #### [address] Urine cocaine metabolite det ectionOrdered By: Chaz Frey on 11-17-2024 Benzoylecgonine Ql (U) Urine cocaine metabolite detection Vjkegr=830 [facility] Urobilinogen Test strip (U) [Mass/Vol]Ordered By: Ragini Carmona on 11-17-2024 Urobilinogen (U) [Mass/Vol] Urobilinogen [Mass/volume] in Urine by Test strip Normal [facility] Vitamin B12on 11-17-2024 Cobalamin (Vitamin B12) [Mass/Vol] 313 pg/mL Normal 180-914 [facility] Comment on above: Result Comment: PERF ORMED BY: [place] [address] PATHOLOGIST LIFE COACH VÍCTOR LUCERO M.D. Performed By: #### C BC, PT, PTT, CK, HS TROP, CMP, PRL #### [address] Vitamin B12 ser/plasOrdered By: Chaz Frey on 11-17-2024 Cobalamin (Vitamin B12) [Mass/Vol] Vitamin B12 ser/plas 180-914 [facility] X-ray reportOrdered By: Dung Chakraborty on 11-17-2024 Study report [facility] Main [place] [address] [place] [address] XRay Report Signed Patient: Aaron Olivarez MR#: [id number] : 1960 Acct:[id number] Age/Sex: 64 / M ADM Date: 5 Loc: Room: [address] [place] [address] Type: ADM INOo Attending Dr: Chaz Frey [...] Dung Chakraborty M.D.11/17/2024 1:26 PM Dictation Location: [place] [address] Transcribed By: [facility] 11/17/24 1326 Dictated By: Dung Chakraborty II, MD 11/17/24 1326 Signed By: 11/17/24 1326 [facility] Work Phone: XR chest 1V portableon 11-17 XR chest 1V portable [facility] [place] [address] XRay Report Signed Patient: Aaron Olivarez MR#: [id number] 00 : 1960 Acct:[id number] Age/Sex: 64 / M ADM Date: 11/17/24 Loc: Room: [address] [place] [address] Type: ADM INOo Attending Dr: Chaz Frey [...] Dung Chakraborty M.D.11/17/2024 1:26 PM Dictation Location: [place] [address] Transcribed By: YNES 11/17/24 1322 Dictated By: Dung Chakraborty II, MD 11/17/241325 Signed By: 11/17/24 1326 Normal [facility] aPTT in Platelet poor plasma by Coagulation assayOrdered By: Ragini Carmona on 11-17-2024 aPTT Coag (PPP) [Time] Activated partial thromboplastin time (aPTT) in platelet poor plasma by coagulation a Low 25.1-36.5 [facility] Comment on above: A hematocrit value g reater than 55% may lead to inaccurate results in coagulation testing. Patients having hematocrit values >55% require a special collection tube for coagulation studies. Please contact the laboratory at [phone] for redraw instructions. pH Test strip (U)Ordered By: Ragini Carmona on 11-17-2024 pH (U) pH of Urine by Test strip 5.0-9.0 [facility] CBC with Diffon 07-15-2024 Abs. Basophil 0.04 k/uL Normal 0.00-0.20 [facility] Comment on above: Performed By: #### C DP, CMPX, MG #### [facility] [employer] [address] [place] [phone] Waste Specialist: Dario Almanza MD Abs.Imm.Granulocyte <0.03 Normal 0.00-0.30 [facility] Comment on above: Performed By: #### C DP, CMPX, MG #### [facility] [employer] [address] [place] [address] Waste Specialist: Dario Almanza MD Abs.Neutrophil (Seg) 3.52 k/uL Normal 1.50-8.10 [facility] Comment on above: Performed By: #### C DP, CMPX, MG #### [facility] [employer] [address] [place] [phone] Waste Specialist: Dario Almanza MD Basophils/100 WBC (Bld) 1 % Normal 0-2 [facility] Comment on above: Performed By: #### C DP, CMPX, MG #### [facility] [employer] [address] [place] [phone] Waste Specialist: Dario Almanza MD Eosinophils (Bld) [#/Vol] 0.03 10*3/uL Normal 0.00-0.44 [facility] Comment on above: Performed By: #### C DP, CMPX, MG #### [facility] [employer] [address] [place] [phone] Waste Specialist: Dario Almanza MD Eosinophils/100 WBC (Bld) 1 % Normal 1-4 [facility] Comment on above: Performed By: #### C DP, CMPX, MG #### [facility] [employer] [address] [place] [phone] Waste Specialist: Dario Almanza MD Erythrocyte distribution width (RBC) [Ratio] 13.1 % Normal 11.8-14.4 [facility] Comment on above: Performed By: #### C DP, CMPX, MG #### [facility] [address] [place] [phone] Waste Specialist: Dario Almanza MD Hematocrit (Bld) [Volume fraction] 42.4 % Normal 40.7-50.3 [facility] Comment on above: Performed By: #### C DP, CMPX, MG #### [facility] [address] [place] [phone] Waste Specialist: Dario Almanza MD Hemoglobin (Bld) [Mass/Vol] 13.7 g/dL Normal 13.0-17.0 [facility] Comment on above: Performed By: #### C DP, CMPX, MG #### [facility] [address] [place] [phone] Waste Specialist: Dario Almanza MD Immature granulocytes/100 WBC (Bld) 0 % Normal 0 [facility] Comment on above: Performed By: #### C DP, CMPX, MG #### [facility] [employer] [address] [place] [phone] Waste Specialist: Dario Almanza MD Lymphocytes (Bld) [#/Vol] 1.19 10*3/uL Normal 1.10-3.70 [facility] Comment on above: Performed By: #### C DP, CMPX, MG #### [facility] [employer] [address] [place] [phone] Waste Specialist: Dario Almanza MD Lymphocytes/100 WBC (Bld) 22 % Low 24-43 [facility] Comment on above: Performed By: #### C DP, CMPX, MG #### [facility] [employer] [address] [place] [phone] Waste Specialist: Dario Almanza MD MCH (RBC) [Entitic mass] 29.6 pg Normal 25.2-33.5 [facility] Comment on above: Performed By: #### C DP, CMPX, MG #### [facility] [employer] [address] [place] [phone] Waste Specialist: Dario Almanza MD MCHC (RBC) [Mass/Vol] 32.3 g/dL Normal 28.4-34.8 [facility] Comment on above: Performed By: #### C DP, CMPX, MG #### [facility] [employer] [address] [place] [phone] Waste Specialist: Dario Almanza MD MCV (RBC) [Entitic vol] 91.6 fL Normal 82.6-102.9 [facility] Comment on above: Performed By: #### C DP, CMPX, MG #### [facility] [employer] [address] [place] [phone] Waste Specialist: Dario Almanza MD Monocytes (Bld) [#/Vol] 0.61 10*3/uL Normal 0.10-1.20 [facility] Comment on above: Performed By: #### C DP, CMPX, MG #### [address] [phone] Waste Specialist: Dario Almanza MD Monocytes/100 WBC (Bld) 11 % Normal 3-12 [facility] Comment on above: Performed By: #### C DP, CMPX, MG #### [address] [phone] Waste Specialist: Dario Almanza MD Neutrophil (Seg) 65 % Normal 36-65 [facility] Comment on above: Performed By: #### C DP, CMPX, MG #### [address] [phone] Waste Specialist: Dario Almanza MD NRBC Automated 0.0 per [address] [facility] Comment on above: Performed By: #### C DP, CMPX, MG #### [address] [phone] Waste Specialist: Dario Almanza MD Platelet mean volume (Bld) [Entitic vol] 9.2 fL Normal 8.1-13.5 [facility] Comment on above: Performed By: #### C DP, CMPX, MG #### [address] [phone] Waste Specialist: Dario Almanza MD Platelets (Bld) [#/Vol] 227 10*3/uL Normal 138-453 [facility] Comment on above: Performed By: #### C DP, CMPX, MG #### [facility] [employer] [address] [place] [phone] Waste Specialist: Dario Almanza MD RBC (Bld) [#/Vol] 4.63 10*6/uL Normal 4.21-5.77 [facility] Comment on above: Performed By: #### C DP, CMPX, MG #### [address] [phone] Waste Specialist: Dario Almanza MD WBC (Bld) [#/Vol] 5.4 10*3/uL Normal 3.5-11.3 [facility] Comment on above: Performed By: #### C DP, CMPX, MG #### [address] [phone] Waste Specialist: Dario Almanza MD Comp Metabolic Pr/rfx MGon 0 07-15-2024 Albumin [Mass/Vol] 3.8 g/dL Normal 3.5-5.2 [facility] Comment on above: Performed By: #### C DP, CMPX, MG #### [address] [phone] Waste Specialist: Dario Almanza MD Albumin/Glob Ratio 2.0 Normal 1.0-2.5 [facility] Comment on above: Performed By: #### C DP, CMPX, MG #### [address] [phone] Waste Specialist: Dario Almanza MD Alkaline Phos 104 U/L Normal 40-129 [facility] Comment on above: Performed By: #### C DP, CMPX, MG #### [facility] [employer] [address] [place] [phone] Waste Specialist: Dario Almanza MD ALT [Catalytic activity/Vol] 7 U/L Low 10-50 [facility] Comment on above: Performed By: #### C DP, CMPX, MG #### [facility] [employer] [address] [place] [phone] Waste Specialist: Dario Almanza MD Anion gap [Moles/Vol] 7 mmol/L Low 9-16 [facility] Comment on above: Performed By: #### C DP, CMPX, MG #### [facility] [employer] [address] [place] [phone] Waste Specialist: Dario Almanza MD AST [Catalytic activity/Vol] 20 U/L Normal 10-50 [facility] Comment on above: Performed By: #### C DP, CMPX, MG #### [facility] [employer] [address] [place] [phone] Waste Specialist: Dario Almanza MD Bilirubin [Mass/Vol] 0.6 mg/dL Normal 0.00-1.20 [facility] Comment on above: Performed By: #### C DP, CMPX, MG #### [facility] [employer] [address] [place] [phone] Waste Specialist: Dario Almanza MD Calcium [Mass/Vol] 9.3 mg/dL Normal 8.6-10.4 [facility] Comment on above: Performed By: #### C DP, CMPX, MG #### [address] [phone] Waste Specialist: Dario Almanza MD Chloride [Moles/Vol] 103 mmol/L Normal 98-107 [facility] Comment on above: Performed By: #### C DP, CMPX, MG #### [facility] [employer] [address] [place] [phone] Waste Specialist: Dario Almanza MD CO2 [Moles/Vol] 28 mmol/L Normal 20-31 [facility] Comment on above: Performed By: #### C DP, CMPX, MG #### [facility] [employer] [address] [place] [phone] Waste Specialist: Dario Almanza MD Creatinine [Mass/Vol] 0.9 mg/dL Normal 0.70-1.20 [facility] Comment on above: Performed By: #### C DP, CMPX, MG #### [employer] [address] [place] [phone] Waste Specialist: Dario Almanza MD GFR/1.73 sq M.predicted among non-blacks MDRD (S/P/Bld) [Vol rate/Area] mL/min/{1.73_m2} Normal >60 [facility] Comment on above: Result Comment: These results [...] By: #### C DP, CMPX, MG #### [facility] [employer] [address] [place] [phone] Waste Specialist: Dario Almanza MD Glucose [Mass/Vol] 95 mg/dL Normal 74-99 [facility] Comment on above: Performed By: #### C DP, CMPX, MG #### [facility] [address] [place] [phone] Waste Specialist: Dario Almanza MD Potassium [Moles/Vol] 3.4 mmol/L Low 3.7-5.3 [facility] Comment on above: Performed By: #### C DP, CMPX, MG #### [facility] [address] [place] [phone] Waste Specialist: Dario Almanza MD Protein [Mass/Vol] 5.8 g/dL Low 6.6-8.7 [facility] Comment on above: Performed By: #### C DP, CMPX, MG #### [facility] [address] [place] [phone] Waste Specialist: Dario Almanza MD Sodium [Moles/Vol] 138 mmol/L Normal 136-145 [facility] Comment on above: Performed By: #### C DP, CMPX, MG #### [facility] [address] [place] [address] Waste Specialist: Dario Almanza MD Urea nitrogen [Mass/Vol] 15 mg/dL Normal - [facility] Comment on above: Performed By: #### C DP, CMPX, MG #### [facility] [address] [place], [place] [phone] Waste Specialist: Dario Almanza MD Magnesiumon 07-15-2024 Magnesium [Mass/Vol] 2.0 mg/dL Normal 1.6-2.4 [facility] Comment on above: Performed By: #### C DP, CMPX, MG #### [facility] [address] [place] [address] Waste Specialist: Dario Almanza MD BUN, POCon 07-14-2024 Urea nitrogen [Mass/Vol] 18 mg/dL Normal 07-08 [facility] CT BRAIN PERFUSIONon 024 CT BRAIN PERFUSION [...] Montilla MD 07/14/24 Final result Normal [facility] CTA HEAD NECK W CONTRASTon [...] reasonably achievable. This scan was analyzed using [email or web address] contact LVO. Identification of suspected findings is [...] Edgar Montilla MD 07/14/[address] [facility] Calcium, Ionic (POC)on 07-14 Calcium [Moles/Vol] 1.11 mmol/L Low 1.15-1.33 [facility] Creatinine w/GFR, POCon Creatinine [Mass/Vol] 1.0 mg/dL Normal 0.51-1.19 [facility] GFR/1.73 sq M.predicted among non-blacks MDRD (S/P/Bld) [Vol rate/Area] 84 mL/min/{1.73_m2} Normal >60 [facility] Comment on above: Result Comment: These results [...] Abuse, Uron 2023 Amphetamine(s),Ur Positive Abnormal NEG [facility] Comment on above: Result Comment: Cuto ff: 1000 ng/mL Performed By: #### U AMIC, MARIA D #### [facility] [employer] [address] [place] [phone] Waste Specialist: Dario Almanza MD Benzodiazepine(s) Positive Abnormal NEG [facility] Comment on above: Result Comment: Cuto ff: 200 ng/ml Performed By: #### U AMIC, MARIA D #### [facility] [address] [place] [phone] Waste Specialist: Dario Almanza MD Cannabinoid(s),Ur Positive Abnormal NEG [facility] Comment on above: Result Comment: Cuto ff: 50 ng/ml Performed By: #### U AMIC, MARIA D #### [facility] [address] [place] [phone] Waste Specialist: Dario Almanza MD Interpretive Info Assay provides rapid clinical screening only. Presumptive positive results for Normal [facility] Comment on above: Result Comment: lega l purposes should be confirmed by another method. To request confirmation, please call the lab within 7 days of sample submission. Performed By: #### U AMIC, MARIA D #### [employer] [address] [place] [phone] Waste Specialist: Dario Almanza MD Barbiturate(s),Ur Negative Normal NEG [facility] Comment on above: Result Comment: Cuto ff: 200 ng/ml Performed By: #### U AMIC, MARIA D #### [employer] [address] [place] [phone] Waste Specialist: Dario Almanza MD Cocaine Metabolite Negative Normal NEG [facility] Comment on above: Result Comment: Cuto ff: 300 ng/ml Performed By: #### U AMIC, MARIA D #### [employer] [address] [place] [phone] Waste Specialist: Dario Almanza MD Fentanyl, Urine Negative Normal NEG [facility] Comment on above: Result Comment: Cuto ff: 5 ng/ml Performed By: #### U AMIC, MARIA D #### [address] [phone] Waste Specialist: Dario Almanza MD Methadone Ql (U) Negative Normal NEG [facility] Comment on above: Result Comment: Cuto ff: 300 ng/ml Performed By: #### U AMIC, MARIA D #### [address] [phone] Waste Specialist: Dario Almanza MD Opiate(s), Ur Negative Normal NEG [facility] Comment on above: Result Comment: Cuto ff: 300 ng/ml Performed By: #### U AMIC, MARIA D #### [address] [phone] Waste Specialist: Dario Almanza MD Oxycodone, Urine Negative Normal NEG [facility] Comment on above: Result Comment: Cuto ff: 100 ng/ml Performed By: #### U AMIC, MARIA D #### [facility] [employer] [address] [place] [phone] Waste Specialist: Dario Almanza MD Phencyclidine, Ur Negative Normal NEG [facility] Comment on above: Result Comment: Cuto ff: 25 ng/ml Performed By: #### U AMIC, MARIA D #### [address] [phone] Waste Specialist: Dario Almanza MD Electrolyteson 07-14-2024 Anion gap [Moles/Vol] 9 mmol/L Normal 7-16 [facility] Chloride [Moles/Vol] 101 mmol/L Normal 98-107 [facility] CO2 [Moles/Vol] 32 mmol/L High 22-30 [facility] Potassium [Moles/Vol] 4.0 mmol/L Normal 3.5-4.5 [facility] Sodium [Moles/Vol] 141 mmol/L Normal 138-146 [facility] Glucose (POC)on 07-14-2024 Glucose [Mass/Vol] 172 mg/dL High 74-100 [facility] Hgb/Hct, POCon 07-14-2024 Hematocrit (Bld) [Volume fraction] 43 % Normal 41-53 [facility] Hemoglobin (Bld) [Mass/Vol] 14.8 g/dL Normal 13.5-17.5 [facility] Lactic Acidon 07-14-2024 Lactic Acid,Whole Bl 1.7 mmol/L Normal 0.7-2.1 [facility] Comment on above: Performed By: #### E DTOX, LACTIC #### [facility] [employer] [address] [place] [address] Waste Specialist: Dario Almanza MD Lactic Acid (POC)on 07-14-20 24 Lactate [Moles/Vol] 2.8 mmol/L High 0.56-1.39 [facility] MRI BRAIN W WO CONTRASTon MRI BRAIN [...] collection present. The proximal portions of the hughes of Lopez demonstrate normal flow voids. ORBITS: [...] Edgar Montilla MD 07/14/[address] [facility] Stroke Panelon 07-14-2024 Abs. Basophil 0.06 k/uL Normal 0.00-0.20 [facility] Comment on above: Performed By: #### Milan VILLANUEVA #### [place] [address] Waste Specialist: Dario Almanza MD Abs.Imm.Granulocyte 0.00 k/uL Normal 0.00-0.30 [facility] Comment on above: Performed By: #### Milan VILLANUEVA #### [place] [address] Waste Specialist: Dario Almanza MD Abs.Neutrophil (Seg) 5.40 k/uL Normal 1.50-8.10 [facility] Comment on above: Performed By: #### Milan VILLANUEVA #### [facility] [employer] [address] [place] [address] Waste Specialist: Dario Almanza MD Basophils/100 WBC (Bld) 1 % Normal 0-2 [facility] Comment on above: Performed By: #### Milan VILLANUEVA #### [place] [address] Waste Specialist: Dario Almanza MD Eosinophils (Bld) [#/Vol] 0.00 10*3/uL Normal 0.00-0.44 [facility] Comment on above: Performed By: #### S KAY #### [address] [phone] Waste Specialist: Dario Almanza MD Eosinophils/100 WBC (Bld) 0 % Low 1-4 [facility] Comment on above: Performed By: #### S TROKE #### [address] [phone] Waste Specialist: Dario Almanza MD Immature granulocytes/100 WBC (Bld) 0 % Normal 0 [facility] Comment on above: Performed By: #### S TROKE #### [address] [address] Waste Specialist: Dario Almanza MD Lymphocytes (Bld) [#/Vol] 0.43 10*3/uL Low 1.10-3.70 [facility] Comment on above: Performed By: #### S TROKE #### [address] [phone] Waste Specialist: Dario Almanza MD Lymphocytes/100 WBC (Bld) 7 % Low 24-43 [facility] Comment on above: Performed By: #### S TROKE #### [address] [phone] Waste Specialist: Dario Almanza MD Monocytes (Bld) [#/Vol] 0.31 10*3/uL Normal 0.10-1.20 [facility] Comment on above: Performed By: #### S TROKE #### [address] [address] Waste Specialist: Dario Almanza MD Monocytes/100 WBC (Bld) 5 % Normal 3-12 [facility] Comment on above: Performed By: #### S TROKE #### [address] [phone] Waste Specialist: Dario Almanza MD Morphology David (Bld) [Interp] Normal Normal [facility] Comment on above: Performed By: #### S TROKE #### [address] [phone] Waste Specialist: Dario Almanza MD Neutrophil (Seg) 87 % High 36-65 [facility] Comment on above: Performed By: #### S TROKE #### [address] [phone] Waste Specialist: Dario Almanza MD Anion gap [Moles/Vol] 8 mmol/L Low 9-16 [facility] Comment on above: Performed By: #### S TROKE #### [address] [address] Waste Specialist: Dario Almanza MD Calcium [Mass/Vol] 8.5 mg/dL Low 8.6-10.4 [facility] Comment on above: Performed By: #### S TROKE #### [address] [phone] Waste Specialist: Dario Almanza MD Chloride [Moles/Vol] 102 mmol/L Normal 98-107 [facility] Comment on above: Performed By: #### S TROKE #### [address] [address] Waste Specialist: Dario Almanza MD CK [Catalytic activity/Vol] 101 U/L Normal 39-308 [facility] Comment on above: Performed By: #### S TROKE #### [address] [phone] Waste Specialist: Dario Almanza MD CO2 [Moles/Vol] 27 mmol/L Normal 20-31 [facility] Comment on above: Performed By: #### S TROKE #### [address] [phone] Waste Specialist: Dario Almanza MD Creatinine [Mass/Vol] 1.1 mg/dL Normal 0.70-1.20 [facility] Comment on above: Performed By: #### S KAY #### [address] [phone] Waste Specialist: Dario Almanza MD GFR/1.73 sq M.predicted among non-blacks MDRD (S/P/Bld) [Vol rate/Area] 74 mL/min/{1.73_m2} Normal >60 [facility] Comment on above: Result Comment: These results [...] secretion. Performed By: #### S KAY #### [facility] [employer] [address] [place] [phone] Waste Specialist: Dario Almanza MD Glucose [Mass/Vol] 174 mg/dL High 74-99 [facility] Comment on above: Performed By: #### S KAY #### [facility] [employer] [address] [place] [phone] Waste Specialist: Dario Almanza MD Myoglobin [Mass/Vol] 106 ng/mL High 28-72 [facility] Comment on above: Performed By: #### S KAY #### [facility] [address] [place] [phone] Waste Specialist: Dario Almanza MD Potassium [Moles/Vol] 4.0 mmol/L Normal 3.7-5.3 [facility] Comment on above: Result Comment: SPEC IMEN SLIGHTLY HEMOLYZED, RESULTS MAY BE ADVERSELY AFFECTED. Performed By: #### S KAY #### [facility] [employer] [address] [place] [phone] Waste Specialist: Dario Almanza MD Sodium [Moles/Vol] 137 mmol/L Normal 136-145 [facility] Comment on above: Performed By: #### S KAY #### [address] [phone] Waste Specialist: Dario Almanza MD Troponin, High Sens 24 ng/L High 0-22 [facility] Comment on above: Result Comment: High Sensitivity Troponin values cannot be compared with other Troponin methodologies. Performed By: #### S KAY #### [address] [phone] Waste Specialist: Dario Almanza MD Urea nitrogen [Mass/Vol] 16 mg/dL Normal 8-23 [facility] Comment on above: Performed By: #### S KAY #### [address] [phone] Waste Specialist: Dario Almanza MD aPTT Coag (Bld) [Time] 22.1 s Low 23.0-36.5 [facility] Comment on above: Result Comment: IV Heparin Therapy Range: 66.0-92.0 sec Performed By: #### S KAY #### [address] [phone] Waste Specialist: Dario Almanza MD INR Coag (PPP) [Relative time] 1.1 {INR} Normal [facility] Comment on above: Result Comment: Therapeutic Range: Moderate Anticoagulant Intensity: INR = 2.0-3.0 High Anticoagulant Intensity: INR = 2.5-3.5 Performed By: #### S KAY #### [address] [phone] Waste Specialist: Dario Almanza MD PT Coag (PPP) [Time] 13.6 s Normal 11.7-14.9 [facility] Comment on above: Performed By: #### S KAY #### [facility] [employer] [address] [place] [phone] Waste Specialist: Dario Almanza MD Erythrocyte distribution width (RBC) [Ratio] 13.2 % Normal 11.8-14.4 [facility] Comment on above: Performed By: #### S TROKE #### [address] [phone] Waste Specialist: Dario Almanza MD Hematocrit (Bld) [Volume fraction] 42.4 % Normal 40.7-50.3 [facility] Comment on above: Performed By: #### S TROKE #### [address] [address] Waste Specialist: Dario Almanza MD Hemoglobin (Bld) [Mass/Vol] 13.9 g/dL Normal 13.0-17.0 [facility] Comment on above: Performed By: #### S TROKE #### [address] [address] Waste Specialist: Dario Almanza MD MCH (RBC) [Entitic mass] 29.6 pg Normal 25.2-33.5 [facility] Comment on above: Performed By: #### S TROKE #### [address] [address] Waste Specialist: Dario Almanza MD MCHC (RBC) [Mass/Vol] 32.8 g/dL Normal 28.4-34.8 [facility] Comment on above: Performed By: #### S TROKE #### [address] [address] Waste Specialist: Dario Almanza MD MCV (RBC) [Entitic vol] 90.2 fL Normal 82.6-102.9 [facility] Comment on above: Performed By: #### S TROKE #### [address] [phone] Waste Specialist: Dario Almanza MD NRBC Automated 0.0 per [address] [facility] Comment on above: Performed By: #### S TITUSKE #### [address] [address] Waste Specialist: Dario Almanza MD Platelet mean volume (Bld) [Entitic vol] 9.3 fL Normal 8.1-13.5 [facility] Comment on above: Performed By: #### S TITUSKE #### [address] [address] Waste Specialist: Dario Almanza MD Platelets (Bld) [#/Vol] 267 10*3/uL Normal 138-453 [facility] Comment on above: Performed By: #### S KAY #### [address] [address] Waste Specialist: Dario Almanza MD RBC (Bld) [#/Vol] 4.70 10*6/uL Normal 4.21-5.77 [facility] Comment on above: Performed By: #### S TITUSKE #### [address] [phone] Waste Specialist: Dario Almanza MD WBC (Bld) [#/Vol] 6.2 10*3/uL Normal 3.5-11.3 [facility] Comment on above: Performed By: #### S TITUSKE #### [address] [address] Waste Specialist: Dario Almanza MD TSH w/reflex to FT4on 2023 Thyroid Stim. Horm. 1.44 uIU/mL Normal 0.27-4.20 [facility] Comment on above: Performed By: #### T SHX ####[address] [phone] Director: Dario Almanza MD Tox Scr, Bld, EDon 4 Acetaminophen [Mass/Vol] ug/mL Low 10-30 [facility] Comment on above: Performed By: #### E DTOX, LACTIC #### [address] [address] Waste Specialist: Dario Almanza MD Ethanol [Mass/Vol] mg/dL Normal <10 [facility] Comment on above: Performed By: #### E DTOX, LACTIC #### [address] [address] Waste Specialist: Dario Almanza MD Ethanol percent <0.010 Normal <0.010 [facility] Comment on above: Performed By: #### E DTOX, LACTIC #### [address] [address] Waste Specialist: Dario Almanza MD Salicylate <0.5 Normal 0.0-10.0 [facility] Comment on above: Performed By: #### E DTOX, LACTIC #### [address] [address] Waste Specialist: Dario Almanza MD Urinalysis w/ Microon 1 Bacteria None Normal NONE [facility] Comment on above: Performed By: #### U AMIC, MARIA D #### [address] [address] Waste Specialist: Dario Almanza MD Bilirubin, SemiQt,Ur Negative Normal NEG [facility] Comment on above: Performed By: #### U AMIC, MARIA D #### [address] [phone] Waste Specialist: Dario Almanza MD Blood, Urine Negative Normal NEG [facility] Comment on above: Performed By: #### U AMIC, MARIA D #### [facility] [employer] [address] [place] [phone] Waste Specialist: Dario Almanza MD Casts 5 TO 10 HYALINE Normal 0-8 [facility] Comment on above: Result Comment: Refe rence range defined for non-centrifuged specimen. Performed By: #### U AMIC, MARIA D #### [facility] [employer] [address] [place] [phone] Waste Specialist: Dario Almanza MD Clarity (U) Clear Normal CLEAR [facility] Comment on above: Performed By: #### U AMIC, MARIA D #### [facility] [employer] [address] [place] [phone] Waste Specialist: Dario Almanza MD Color (U) Yellow Normal YEL [facility] Comment on above: Performed By: #### U AMIC, MARIA D #### [address] [address] Waste Specialist: Dario Almanza MD Epithelial cells LM Ql (Urine sed) 0 TO 2 Normal 0-5 [facility] Comment on above: Performed By: #### U AMIC, MARIA D #### [facility] [employer] [address] [place] [phone] Waste Specialist: Dario Almanza MD Glucose Ql (U) 1+ mg/dL Abnormal NEG [facility] Comment on above: Performed By: #### U AMIC, MARIA D #### [facility] [employer] [address] [place] [phone] Waste Specialist: Dario Almanza MD Ketones Ql (U) Negative Normal NEG [facility] Comment on above: Performed By: #### U AMIC, MARIA D #### [facility] [employer] [address] [place] [phone] Waste Specialist: Draio Almanza MD Leukocyte esterase Test strip Ql (U) Negative Normal NEG [facility] Comment on above: Performed By: #### U AMIC, MARIA D #### [address] [phone] Waste Specialist: Dario Almanza MD Nitrite,Ur Negative Normal NEG [facility] Comment on above: Performed By: #### U AMIC, MARIA D #### [address] [address] Waste Specialist: Dario Almanza MD PH,Ur 7.0 Normal 5.0-8.0 [facility] Comment on above: Performed By: #### U AMIC, MARIA D #### [address] [address] Waste Specialist: Dario Almanza MD Protein Ql (U) 1+ mg/dL Abnormal NEG [facility] Comment on above: Performed By: #### U AMIC, MARIA D #### [address] [phone] Waste Specialist: Dario Almanza MD Spec. [place],Ur 1.044 High 1.005-1.030 [facility] Comment on above: Performed By: #### U AMIC, MARIA D #### [address] [address] Waste Specialist: Dario Almanza MD Urine RBC's 0 TO 2 Normal 0-4 [facility] Comment on above: Result Comment: Refe rence range defined for non-centrifuged specimen. Performed By: #### U AMIC, MARIA D #### [address] [phone] Waste Specialist: Dario Almanza MD Urine WBC's None Normal 0-5 [facility] Comment on above: Performed By: #### U AMIC, MARIA D #### [address] [address] Waste Specialist: Dario Almanza MD Urobilinogen,Ur Normal Normal 0.0-1.0 [facility] Comment on above: Performed By: #### U AMI, MARIA D #### [facility] [place] [phone] Waste Specialist: Dario Almanza MD Venous Bld Gas,POCon 024 HCO3 (Bld) [Moles/Vol] 31.9 mmol/L High 22.0-29.0 [facility] Oxygen saturation in Blood 45.4 % Low 60.0-85.0 [facility] pCO2, Venous 47.5 mm Hg Normal 41.0-51.0 [facility] pH,Venous 7.435 High 7.320-7.430 [facility] pO2, Venous 24.6 mm Hg Low 30.0-50.0 [facility] Positive Base Excess (calc) 6.4 mmol/L High 0.0-3.0 [facility] XR ABDOMEN (KUB) (SINGLE AP VIEW)on 07-14-2024 [...] Jt Gray MD 07/14/[address] [facility] XR CHEST PORTABLEon 07-14-20 XR CHEST PORTABLE [...] Basil Witt DO 07/14/[address] [facility] Basic Metabolic Panelon 04-14 Creatinine Clr Calc Pharmacy 82.90 Normal [facility] Comment on above: Result Comment: PERF ORMED BY: [place] [address] PATHOLOGIST [employer] ULISES MILLS M.D. Performed By: #### C BC, PT, PTT, CK, HS TROP, CMP, PRL #### [address] GFR/1.73 sq M.predicted MDRD (S/P/Bld) [Vol rate/Area] mL/min/{1.73_m2} Normal The [facility] Comment on above: Performed By: #### C BC, PT, PTT, CK, HS TROP, CMP, PRL #### [place] [address] [place] Calcium [Mass/volume] in Ser um or PlasmaOrdered By: Janae Jose on 05-05-2024 Calcium [Mass/Vol] 9.0 mg/dL Normal 8.6-10.3 [facility] Comment on above: Performed By: #### C BC, PT, PTT, CK, HS TROP, CMP, PRL #### [place] [id number] [place] Carbon dioxide, total [Moles /volume] in Serum or PlasmaOrdered By: Janae Jose on 05-05-2024 CO2 [Moles/Vol] 30.3 mmol/L Normal 21.0-31.0 [facility] Comment on above: Performed By: #### C BC, PT, PTT, CK, HS TROP, CMP, PRL #### [place] [address] [place] Chloride [Moles/volume] in S andrei or PlasmaOrdered By: Janae Jose on 05-05-2024 Chloride [Moles/Vol] 98 mmol/L Normal 98-107 [facility] Comment on above: Performed By: #### C BC, PT, PTT, CK, HS TROP, CMP, PRL #### [facility] [address] Creatinine [Mass/volume] in Serum or PlasmaOrdered By: Janae Jose on 05-05-2024 Creatinine [Mass/Vol] 0.97 mg/dL Normal 0.70-1.30 [facility] Comment on above: Performed By: #### C BC, PT, PTT, CK, HS TROP, CMP, PRL #### [facility] [address] Glucose [Mass/volume] in Ser um or PlasmaOrdered By: Janae Jose on 05-05-2024 Glucose [Mass/Vol] 105 mg/dL High 70-100 [facility] Comment on above: ADA recommended refe rence rangeRandom Glucose Reference Range is dependent on time and content of last meal. Glucose of more than 200 mg/dL in a nonstressed, ambulatory subject supports the diagnosis of Diabetes Mellitus. Result Comment: [place] [facility] Glucose Reference Range is dependent on time and content of last meal. Glucose of more than 200 mg/dL in a nonstressed, ambulatory subject supports the diagnosis of Diabetes Mellitus. ADA recommended reference range Performed By: #### C BC, PT, PTT, CK, HS TROP, CMP, PRL #### [facility] [address] No Panel InformationOrdered By: Janae Jose on 05-05-2024 Estimated GFR (CKD-EPI) > 60.0 mL/Min [facility] Creatinine Clearance (Chem 82.90 [facility] Potassium [Moles/volume] in Serum or PlasmaOrdered By: Janae Jose on 05-05-2024 Potassium [Moles/Vol] 4.4 mmol/L Normal 3.5-5.1 [facility] Comment on above: Performed By: #### C BC, PT, PTT, CK, HS TROP, CMP, PRL #### [facility] [address] Serum or plasma anion gap de terminationOrdered By: Janae Jose on 05-05-2024 Anion gap [Moles/Vol] 8.1 mmol/L Normal 6.0-15.0 [facility] Comment on above: Performed By: #### C BC, PT, PTT, CK, HS TROP, CMP, PRL #### [address] Sodium [Moles/volume] in Ser um or PlasmaOrdered By: Janae Jose on 05-05-2024 Sodium [Moles/Vol] 132 mmol/L Low 136-145 [facility] Comment on above: Performed By: #### C BC, PT, PTT, CK, HS TROP, CMP, PRL #### [address] Urea nitrogen [Mass/volume] in Serum or PlasmaOrdered By: Janae Jose on 05-05-2024 Urea nitrogen [Mass/Vol] 25 mg/dL Normal 7-25 [facility] Comment on above: Performed By: #### C BC, PT, PTT, CK, HS TROP, CMP, PRL #### [address] Ammonia [Moles/volume] in Pl asmaOrdered By: Víctor Agrawal on 05-04-2024 Ammonia (P) [Moles/Vol] 22 umol/L Normal 11-35 [facility] Comment on above: Result Comment: PERF ORMED BY: [place] [address] PATHOLOGIST LIFE COACH ULISES MILLS M.D. Performed By: #### C BC, PT, PTT, CK, HS TROP, CMP, PRL #### [address] Automated basophil %Ordered By: Magdy Douglass on 05-04-2024 Basophils/100 WBC (Bld) 0.1 % Normal . [facility] Comment on above: Performed By: #### C BC, PT, PTT, CK, HS TROP, CMP, PRL #### [address] Automated basophil countOrde red By: Magdy Douglass on 05-04-2024 Basophils (Bld) [#/Vol] 0.0 10*3/uL Normal 0.0-0.2 [facility] Comment on above: Result Comment: PERF ORMED BY: [place] [address] PATHOLOGIST LIFE COACH ULISES MILLS M.D. Performed By: #### C BC, PT, PTT, CK, HS TROP, CMP, PRL #### [address] Automated blood monocyte cou ntOrdered By: Magdy Douglass on 05-04-2024 Monocytes (Bld) [#/Vol] 0.3 10*3/uL Normal 0.0-0.8 [facility] Comment on above: Performed By: #### C BC, PT, PTT, CK, HS TROP, CMP, PRL #### [address] Automated eosinophil %Ordere d By: Magdy Douglass on 05-04-2024 Eosinophils/100 WBC (Bld) 0.0 % Normal . [facility] Comment on above: Performed By: #### C BC, PT, PTT, CK, HS TROP, CMP, PRL #### [address] Automated eosinophil countOr dered By: Magdy Douglass on 05-04-2024 Eosinophils (Bld) [#/Vol] 0.0 10*3/uL Normal 0.0-0.45 [facility] Comment on above: Performed By: #### C BC, PT, PTT, CK, HS TROP, CMP, PRL #### [address] Automated monocyte %Ordered By: Magdy Douglass on 05-04-2024 Monocytes/100 WBC (Bld) 3.0 % Normal . [facility] Comment on above: Performed By: #### C BC, PT, PTT, CK, HS TROP, CMP, PRL #### [facility] [address] Automated neutrophil %Ordere d By: Magdy Douglass on 05-04-2024 Neutrophils/100 WBC (Bld) 92.0 % Normal . [facility] Comment on above: Performed By: #### C BC, PT, PTT, CK, HS TROP, CMP, PRL #### [facility] [address] Basic Metabolic Panelon 04-14 Anion gap [Moles/Vol] 11.4 mmol/L Normal 6.0-15.0 [facility] e [facility] Comment on above: Performed By: #### C BC, PT, PTT, CK, HS TROP, CMP, PRL #### [facility] [address] Calcium [Mass/Vol] 9.6 mg/dL Normal 8.6-10.3 [facility] Comment on above: Performed By: #### C BC, PT, PTT, CK, HS TROP, CMP, PRL #### [facility] [address] Chloride [Moles/Vol] 93 mmol/L Low 98-107 [facility] Comment on above: Performed By: #### C BC, PT, PTT, CK, HS TROP, CMP, PRL #### [facility] [address] CO2 [Moles/Vol] 30.9 mmol/L Normal 21.0-31.0 [facility] Comment on above: Performed By: #### C BC, PT, PTT, CK, HS TROP, CMP, PRL #### [facility] [address] Creatinine [Mass/Vol] 0.88 mg/dL Normal 0.70-1.30 [facility] Comment on above: Performed By: #### C BC, PT, PTT, CK, HS TROP, CMP, PRL #### [address] Creatinine Clr Calc Pharmacy 91.86 Normal [facility] Comment on above: Performed By: #### C BC, PT, PTT, CK, HS TROP, CMP, PRL #### [facility] [address] GFR/1.73 sq M.predicted MDRD (S/P/Bld) [Vol rate/Area] mL/min/{1.73_m2} Normal [facility] Comment on above: Performed By: #### C BC, PT, PTT, CK, HS TROP, CMP, PRL #### [address] Glucose [Mass/Vol] 107 mg/dL High 70-100 [facility] Comment on above: Result Comment: [facility] Glucose Reference Range is dependent on time and content of last meal. Glucose of more than 200 mg/dL in a nonstressed, ambulatory subject supports the diagnosis of Diabetes Mellitus. ADA recommended reference range Performed By: #### C BC, PT, PTT, CK, HS TROP, CMP, PRL #### [address] Potassium [Moles/Vol] 4.3 mmol/L Normal 3.5-5.1 [facility] Comment on above: Performed By: #### C BC, PT, PTT, CK, HS TROP, CMP, PRL #### [address] Sodium [Moles/Vol] 131 mmol/L Low 136-145 [facility] Comment on above: Performed By: #### C BC, PT, PTT, CK, HS TROP, CMP, PRL #### [place] [address] [place] Urea nitrogen [Mass/Vol] 19 mg/dL Normal 7-25 [facility] Comment on above: Performed By: #### C BC, PT, PTT, CK, HS TROP, CMP, PRL #### [address] Complete Blood Count Auto Di ffon 05-04-2024 Mean Corpuscular HGB Conc 32.9 g/dL Normal 32.5-35.6 [facility] Comment on above: Performed By: #### C BC, PT, PTT, CK, HS TROP, CMP, PRL #### [address] NRBC% 0.0 /100{WBC} Normal 0-0.5 [facility] Comment on above: Performed By: #### C BC, PT, PTT, CK, HS TROP, CMP, PRL #### [address] Erythrocyte distribution wid th [Ratio] by Automated countOrdered By: Magdy Douglass on 05-04-2024 Erythrocyte distribution width (RBC) [Ratio] 16.5 % High 12.0-14.8 [facility] Comment on above: Performed By: #### C BC, PT, PTT, CK, HS TROP, CMP, PRL #### [address] Erythrocytes [#/volume] in B lood by Automated countOrdered By: Magdy Douglass on 05-04-2024 RBC (Bld) [#/Vol] 4.97 10*6/uL Normal 3.90-5.[address] [facility] Comment on above: Performed By: #### C BC, PT, PTT, CK, HS TROP, CMP, PRL #### [address] Folate [Mass/volume] in Seru m or PlasmaOrdered By: Janae Jose on 05-04-2024 Folate [Mass/Vol] 9.7 ng/mL >5.9 [facility] Comment on above: Folate reference ran ge: >5.9 ng/mlThe WHO technical consultation on folate and vitamin [id number] has determined that folate concentrations lessthan 4 ng/ml are considered deficient. Hematocrit [Volume Fraction] of Blood by Automated countOrdered By: Magdy Douglass on 05-04-2024 Hematocrit (Bld) [Volume fraction] 45.0 % Normal 38.8-50.0 [facility] Comment on above: Performed By: #### C BC, PT, PTT, CK, HS TROP, CMP, PRL #### [facility] [address] Hemoglobin [Mass/volume] in BloodOrdered By: Magdy Douglass on 05-04-2024 Hemoglobin (Bld) [Mass/Vol] 14.8 g/dL Normal 13.0-17.0 [facility] Comment on above: Performed By: #### C BC, PT, PTT, CK, HS TROP, CMP, PRL #### [facility] [address] Leukocytes [#/volume] correc srinivas for nucleated erythrocytes in Blood by Automated counOrdered By: Magdy Douglass on 05-04-2024 WBC corrected for nucl RBC Auto (Bld) [#/Vol] 9.6 10*3/uL 4.1-10.5 [facility] Leukocytes [#/volume] in Blo od by Automated countOrdered By: Magdy Douglass on 05-04-2024 WBC (Bld) [#/Vol] 9.6 10*3/uL Normal 4.1-10.5 [facility] Comment on above: Performed By: #### C BC, PT, PTT, CK, HS TROP, CMP, PRL #### [address] Lymphocytes [#/volume] in Bl ood by Automated countOrdered By: Magdy Douglass on 05-04-2024 Lymphocytes (Bld) [#/Vol] 0.5 10*3/uL Low 1.00-4.8 [facility] Comment on above: Performed By: #### C BC, PT, PTT, CK, HS TROP, CMP, PRL #### [place] [address] [place] Lymphocytes/100 leukocytes i n Blood by Automated countOrdered By: Magdy Douglass on 05-04-2024 Lymphocytes/100 WBC (Bld) 4.9 % Normal . [facility] Comment on above: Performed By: #### C BC, PT, PTT, CK, HS TROP, CMP, PRL #### [address] MCH [Entitic mass] by Automa srinivas countOrdered By: Magdy Douglass on 05-04-2024 MCH (RBC) [Entitic mass] 29.8 pg Normal 27.5-35.2 [facility] Comment on above: Performed By: #### C BC, PT, PTT, CK, HS TROP, CMP, PRL #### [address] MCHC Auto (RBC) [Mass/Vol]Or dered By: Magdy Douglass on 05-04-2024 MCHC (RBC) [Mass/Vol] 32.9 g/dL 32.5-35.6 [facility] MCV [Entitic volume] by Auto mated countOrdered By: Magdy Douglass on 05-04-2024 MCV (RBC) [Entitic vol] 90.4 fL Normal 83.5-101 [facility] Comment on above: Performed By: #### C BC, PT, PTT, CK, HS TROP, CMP, PRL #### [address] Neutrophils [#/volume] in Bl ood by Automated countOrdered By: Magdy Douglass on 05-04-2024 Neutrophils (Bld) [#/Vol] 8.9 10*3/uL High 1.8-7.7 [facility] Comment on above: Performed By: #### C BC, PT, PTT, CK, HS TROP, CMP, PRL #### [address] Nucleated erythrocytes [Pres ence] in Blood by Automated countOrdered By: Magdy Douglass on 05-04-2024 Nucleated RBC Auto Ql (Bld) 0.0 /100{WBC} 0-0.5 [facility] Platelet mean volume [Entiti c volume] in Blood by Automated countOrdered By: Magdy Douglass on 05-04-2024 Platelet mean volume (Bld) [Entitic vol] 6.5 fL Low 6.6-10.1 [facility] Comment on above: Performed By: #### C BC, PT, PTT, CK, HS TROP, CMP, PRL #### [address] Platelets [#/volume] in Bloo d by Automated countOrdered By: Magdy Douglass on 05-04-2024 Platelets (Bld) [#/Vol] 417 10*3/uL Normal 150-450 [facility] Comment on above: Performed By: #### C BC, PT, PTT, CK, HS TROP, CMP, PRL #### [address] Thyrotropin [Units/volume] i n Serum or PlasmaOrdered By: Janae Jose on 05-04-2024 TSH Qn 5.50 m[IU]/L High 0.45-5.33 [facility] Comment on above: Result Comment: PERF ORMED BY: [place] [address] PATHOLOGIST [employer] ULISES MILLS M.D. Performed By: #### C BC, PT, PTT, CK, HS TROP, CMP, PRL #### [address] Vit. B12/Folate Profileon Folate 9.7 ng/mL Normal >5.9 [facility] Comment on above: Result Comment: [place]elyn te reference range: >5.9 ng/ml The WHO technical consultation on folate and vitamin b12 deficiencies has determined that folate concentrations less than 4 ng/ml are considered deficient. Performed By: #### C BC, PT, PTT, CK, HS TROP, CMP, PRL #### [address] Vitamin B12 ser/plasOrdered By: Janae Jose on 05-04-2024 Cobalamin (Vitamin B12) [Mass/Vol] 500 pg/mL Normal 180-914 [facility] Comment on above: Performed By: #### C BC, PT, PTT, CK, HS TROP, CMP, PRL #### [address] Alanine aminotransferase [En zymatic activity/volume] in Serum or PlasmaOrdered By: Magdy Douglass on 05-03-2024 ALT [Catalytic activity/Vol] 14 U/L Normal 7-52 [facility] Comment on above: Performed By: #### C BC, PT, PTT, CK, HS TROP, CMP, PRL #### [facility] [address] Albumin [Mass/volume] in Ser um or Plasma by Bromocresol green (BCG) dye binding methoOrdered By: Magdy Douglass on 05-03-2024 Albumin BCG dye [Mass/Vol] 3.1 g/dL 3.5-5.7 [facility] Alkaline phosphatase [Enzyma tic activity/volume] in Serum or PlasmaOrdered By: Magdy Douglass on 05-03-2024 ALP [Catalytic activity/Vol] 131 U/L High 34-104 [facility] Comment on above: Performed By: #### C BC, PT, PTT, CK, HS TROP, CMP, PRL #### [address] Aspartate aminotransferase [ Enzymatic activity/volume] in Serum or PlasmaOrdered By: Magdy Douglass on 05-03-2024 AST [Catalytic activity/Vol] 12 U/L Low 13-39 [facility] Comment on above: Performed By: #### C BC, PT, PTT, CK, HS TROP, CMP, PRL #### [address] Bilirubin.total [Mass/volume ] in Serum or PlasmaOrdered By: Magdy Douglass on 05-03-2024 Bilirubin [Mass/Vol] 0.4 mg/dL Normal 0.3-1.0 [facility] Comment on above: Performed By: #### C BC, PT, PTT, CK, HS TROP, CMP, PRL #### [address] head/brain wo albert 05-03 CT head/brain wo [facility] [place] [address] CT Scan Report Signed Patient: Aaron Olivarez MR#: [id number] 00 : 1960 Acct:[id number] Age/Sex: 63 / M ADM Date: 05/01/24 Loc: Room: 6C0950-0 Type: ADM IN Attending Dr: Janae Jose [...] Velázquez Jr., D.OJeremi05/03/2024 4:20 PM Dictation Location: [place] [address] Transcribed By: [facility] 05/03/24 1620 Dictated By: Patricio Velázquez Jr, DO 05/03/24 1618 Signed By: 05/03/24 1620 Normal [facility] Complete Blood Count Auto Di ffon 05-03-2024 Basophils (Bld) [#/Vol] 0.0 10*3/uL Normal 0.0-0.2 [facility] Comment on above: Result Comment: PERF ORMED BY: [place] [address] PATHOLOGIST [employer] ULISES MILLS M.D. Performed By: #### C BC, PT, PTT, CK, HS TROP, CMP, PRL #### [address] Basophils/100 WBC (Bld) 0.3 % Normal . [facility] Comment on above: Performed By: #### C BC, PT, PTT, CK, HS TROP, CMP, PRL #### [address] Eosinophils (Bld) [#/Vol] 0.0 10*3/uL Normal 0.0-0.45 [facility] Comment on above: Performed By: #### C BC, PT, PTT, CK, HS TROP, CMP, PRL #### [address] Eosinophils/100 WBC (Bld) 0.0 % Normal . [facility] Comment on above: Performed By: #### C BC, PT, PTT, CK, HS TROP, CMP, PRL #### [address] Erythrocyte distribution width (RBC) [Ratio] 16.0 % High 12.0-14.8 [facility] Comment on above: Performed By: #### C BC, PT, PTT, CK, HS TROP, CMP, PRL #### [address] Hematocrit (Bld) [Volume fraction] 40.0 % Normal 38.8-50.0 [facility] Comment on above: Performed By: #### C BC, PT, PTT, CK, HS TROP, CMP, PRL #### [address] Hemoglobin (Bld) [Mass/Vol] 13.4 g/dL Normal 13.0-17.0 [facility] Comment on above: Performed By: #### C BC, PT, PTT, CK, HS TROP, CMP, PRL #### [address] Lymphocytes (Bld) [#/Vol] 0.4 10*3/uL Low 1.00-4.8 [facility] Comment on above: Performed By: #### C BC, PT, PTT, CK, HS TROP, CMP, PRL #### [address] Lymphocytes/100 WBC (Bld) 4.7 % Normal . [facility] Comment on above: Performed By: #### C BC, PT, PTT, CK, HS TROP, CMP, PRL #### [address] MCH (RBC) [Entitic mass] 30.1 pg Normal 27.5-35.2 [facility] Comment on above: Performed By: #### C BC, PT, PTT, CK, HS TROP, CMP, PRL #### [address] MCV (RBC) [Entitic vol] 90.1 fL Normal 83.5-101 [facility] Comment on above: Performed By: #### C BC, PT, PTT, CK, HS TROP, CMP, PRL #### [address] Mean Corpuscular HGB Conc 33.5 g/dL Normal 32.5-35.6 [facility] Comment on above: Performed By: #### C BC, PT, PTT, CK, HS TROP, CMP, PRL #### [address] Monocytes (Bld) [#/Vol] 0.2 10*3/uL Normal 0.0-0.8 [facility] Comment on above: Performed By: #### C BC, PT, PTT, CK, HS TROP, CMP, PRL #### [address] Monocytes/100 WBC (Bld) 2.4 % Normal . [facility] Comment on above: Performed By: #### C BC, PT, PTT, CK, HS TROP, CMP, PRL #### [address] Neutrophils (Bld) [#/Vol] 7.2 10*3/uL Normal 1.8-7.7 [facility] Comment on above: Performed By: #### C BC, PT, PTT, CK, HS TROP, CMP, PRL #### [address] Neutrophils/100 WBC (Bld) 92.6 % Normal . [facility] Comment on above: Performed By: #### C BC, PT, PTT, CK, HS TROP, CMP, PRL #### [address] NRBC% 0.0 /100{WBC} Normal 0-0.5 [facility] Comment on above: Performed By: #### C BC, PT, PTT, CK, HS TROP, CMP, PRL #### [address] Platelet mean volume (Bld) [Entitic vol] 6.3 fL Low 6.6-10.1 [facility] Comment on above: Performed By: #### C BC, PT, PTT, CK, HS TROP, CMP, PRL #### [address] Platelets (Bld) [#/Vol] 328 10*3/uL Normal 150-450 [facility] Comment on above: Performed By: #### C BC, PT, PTT, CK, HS TROP, CMP, PRL #### [address] RBC (Bld) [#/Vol] 4.44 10*6/uL Normal 3.90-5.60 [facility] Comment on above: Performed By: #### C BC, PT, PTT, CK, HS TROP, CMP, PRL #### [address] WBC (Bld) [#/Vol] 7.7 10*3/uL Normal 4.1-10.5 [facility] Comment on above: Performed By: #### C BC, PT, PTT, CK, HS TROP, CMP, PRL #### [address] Comprehensive Metabolic Pane wilner 05-03-2024 Albumin [Mass/Vol] 3.1 g/dL Low 3.5-5.7 [facility] Comment on above: Performed By: #### C BC, PT, PTT, CK, HS TROP, CMP, PRL #### [address] Anion gap [Moles/Vol] 4.4 mmol/L Low 6.0-15.0 [facility] Comment on above: Performed By: #### C BC, PT, PTT, CK, HS TROP, CMP, PRL #### [address] Calcium [Mass/Vol] 8.8 mg/dL Normal 8.6-10.3 [facility] Comment on above: Performed By: #### C BC, PT, PTT, CK, HS TROP, CMP, PRL #### [address] Chloride [Moles/Vol] 93 mmol/L Low 98-107 [facility] Comment on above: Performed By: #### C BC, PT, PTT, CK, HS TROP, CMP, PRL #### [address] CO2 [Moles/Vol] 40.3 mmol/L High 21.0-31.0 [facility] Comment on above: Performed By: #### C BC, PT, PTT, CK, HS TROP, CMP, PRL #### [address] Creatinine [Mass/Vol] 0.88 mg/dL Normal 0.70-1.30 [facility] Comment on above: Performed By: #### C BC, PT, PTT, CK, HS TROP, CMP, PRL #### [address] Creatinine Clr Calc Pharmacy 91.86 Normal [facility] Comment on above: Result Comment: PERF ORMED BY: [place] [address] PATHOLOGIST [employer] ULISES MILLS M.D. Performed By: #### C BC, PT, PTT, CK, HS TROP, CMP, PRL #### [place] [address] [place] GFR/1.73 sq M.predicted MDRD (S/P/Bld) [Vol rate/Area] mL/min/{1.73_m2} Normal [facility] Comment on above: Performed By: #### C BC, PT, PTT, CK, HS TROP, CMP, PRL #### [address] Glucose [Mass/Vol] 112 mg/dL High 70-100 [facility] Comment on above: Result Comment: [facility] Glucose Reference Range is dependent on time and content of last meal. Glucose of more than 200 mg/dL in a nonstressed, ambulatory subject supports the diagnosis of Diabetes Mellitus. ADA recommended reference range Performed By: #### C BC, PT, PTT, CK, HS TROP, CMP, PRL #### [address] Potassium [Moles/Vol] 4.7 mmol/L Normal 3.5-5.1 [facility] Comment on above: Performed By: #### C BC, PT, PTT, CK, HS TROP, CMP, PRL #### [address] Sodium [Moles/Vol] 133 mmol/L Low 136-145 [facility] Comment on above: Performed By: #### C BC, PT, PTT, CK, HS TROP, CMP, PRL #### [address] Urea nitrogen [Mass/Vol] 20 mg/dL Normal 7-25 [facility] Comment on above: Performed By: #### C BC, PT, PTT, CK, HS TROP, CMP, PRL #### [address] ECG 12 lead ECGon 05-03-2024 ECG 12 lead ECG [facility] [place] [address] Electrocardiograph Report Signed Patient: Aaron Olivarez MR#: [id number] 00 : 1960 Acct:[id number] Age/Sex: 63 / M ADM Date: 05/01/24 Loc: Room: [address] [place] [address] Type: ADM IN Attending Dr: Janae Jose [...] Referred By: Electronically Signed By:YASMINE KIDD MD [facility] Transcribed By: MUS Signed By Yasmine Kidd MD, [facility]ARE[facility] 05/03/24 1735 Normal [facility] echo transthoracicon [facility] echo transthoracic [facility] Main [place] [address] [place] [address] Echocardiogram Signed Patient: Aaron Olivarez MR#: [id number] 00 : 1960 Acct:[id number] Age/Sex: 63 / M ADM Date: 05/01/24 Loc: Room: [address] [place] [address] Type: ADM IN Attending Dr: Janae Jose MD Ordering Provider: Janae Jose MD Date of Service: 05/02/24 [facility] echo transthoracic: evaluate lv function Copies to: Yasmine Kidd MD, [facility] Janae Jose MD BSA: 2.0 m2 [...] 05/03/24 0946 Signed By: Yasmine Kidd MD, [facility] 05/03/24 1524 Normal [facility] Protein [Mass/volume] in Ser um or PlasmaOrdered By: Magdy Douglass on 05-03-2024 Protein [Mass/Vol] 5.9 g/dL Low 6.4-8.9 [facility] Comment on above: Performed By: #### C BC, PT, PTT, CK, HS TROP, CMP, PRL #### [facility] [address] [place] [address] [place] Serum globulin measurement b y calculation (mass/volume)Ordered By: Magdy Douglass on 05-03-2024 Globulin (S) [Mass/Vol] 2.8 g/dL [facility] Comment on above: Performed By: #### C BC, PT, PTT, CK, HS TROP, CMP, PRL #### [facility] [address] Serum or plasma albumin/glob ulin mass ratioOrdered By: Magdy Douglass on 05-03-2024 Albumin/Globulin [Mass ratio] 1.1 {ratio} Normal [facility] Comment on above: Performed By: #### C BC, PT, PTT, CK, HS TROP, CMP, PRL #### [place] [id number] [facility] XR chest 1V portableon 05-03 XR chest 1V portable [facility] Main [place] [address] [place] [address] XRay Report Signed Patient: Aaron Olivarez MR#: [id number] 00 : 1960 Acct:[id number] Age/Sex: 63 / M ADM Date: 05/01/24 Loc: Room: [address] [place] [address] Type: ADM IN Attending Dr: Janae Jose [...] Velázquez Jr., D.O.05/03/2024 10:40 AM Dictation Location: [place] [address] Transcribed By: [facility] 05/03/24 1040 Dictated By: Patricio Velázquez Jr, DO 05/03/24 1038 Signed By: 05/03/24 1040 Normal [facility] C reactive protein [Mass/vol ume] in Serum or PlasmaOrdered By: Magdy Douglass on 05-02-2024 CRP [Mass/Vol] 2.5 mg/dL 0.0-0.5 [facility] C-Reactive Proteinon 024 C-Reactive Protein 2.5 mg/dL High 0.0-0.5 [facility] Comment on above: Result Comment: PERF ORMED BY: [place] [address] PATHOLOGIST LIFE COACH ULISES MILLS M.D. Performed By: #### C BC, PT, PTT, CK, HS TROP, CMP, PRL #### [address] Complete Blood Count Auto Di ffon 05-02-2024 Basophils (Bld) [#/Vol] 0.0 10*3/uL Normal 0.0-0.2 [facility] Comment on above: Result Comment: PERF ORMED BY: [place] [address] PATHOLOGIST LIFE COACH ULISES MILLS M.D. Performed By: #### C BC, PT, PTT, CK, HS TROP, CMP, PRL #### [address] Basophils/100 WBC (Bld) 0.2 % Normal . [facility] Comment on above: Performed By: #### C BC, PT, PTT, CK, HS TROP, CMP, PRL #### [address] Eosinophils (Bld) [#/Vol] 0.0 10*3/uL Normal 0.0-0.45 [facility] Comment on above: Performed By: #### C BC, PT, PTT, CK, HS TROP, CMP, PRL #### [address] Eosinophils/100 WBC (Bld) 0.0 % Normal . [facility] Comment on above: Performed By: #### C BC, PT, PTT, CK, HS TROP, CMP, PRL #### [address] Erythrocyte distribution width (RBC) [Ratio] 15.5 % High 12.0-14.8 [facility] Comment on above: Performed By: #### C BC, PT, PTT, CK, HS TROP, CMP, PRL #### [address] Hematocrit (Bld) [Volume fraction] 37.0 % Low 38.8-50.0 [facility] Comment on above: Performed By: #### C BC, PT, PTT, CK, HS TROP, CMP, PRL #### [address] Hemoglobin (Bld) [Mass/Vol] 12.3 g/dL Low 13.0-17.0 [facility] Comment on above: Performed By: #### C BC, PT, PTT, CK, HS TROP, CMP, PRL #### [address] Lymphocytes (Bld) [#/Vol] 0.6 10*3/uL Low 1.00-4.8 [facility] Comment on above: Performed By: #### C BC, PT, PTT, CK, HS TROP, CMP, PRL #### [address] Lymphocytes/100 WBC (Bld) 7.8 % Normal . [facility] Comment on above: Performed By: #### C BC, PT, PTT, CK, HS TROP, CMP, PRL #### [address] MCH (RBC) [Entitic mass] 29.8 pg Normal 27.5-35.2 [facility] Comment on above: Performed By: #### C BC, PT, PTT, CK, HS TROP, CMP, PRL #### [address] MCV (RBC) [Entitic vol] 89.7 fL Normal 83.5-101 [facility] Comment on above: Performed By: #### C BC, PT, PTT, CK, HS TROP, CMP, PRL #### [address] Mean Corpuscular HGB Conc 33.2 g/dL Normal 32.5-35.6 [facility] Comment on above: Performed By: #### C BC, PT, PTT, CK, HS TROP, CMP, PRL #### [address] Monocytes (Bld) [#/Vol] 0.6 10*3/uL Normal 0.0-0.8 [facility] Comment on above: Performed By: #### C BC, PT, PTT, CK, HS TROP, CMP, PRL #### [address] Monocytes/100 WBC (Bld) 8.2 % Normal . [facility] Comment on above: Performed By: #### C BC, PT, PTT, CK, HS TROP, CMP, PRL #### [address] Neutrophils (Bld) [#/Vol] 6.3 10*3/uL Normal 1.8-7.7 [facility] Comment on above: Performed By: #### C BC, PT, PTT, CK, HS TROP, CMP, PRL #### [address] Neutrophils/100 WBC (Bld) 83.8 % Normal . [facility] Comment on above: Performed By: #### C BC, PT, PTT, CK, HS TROP, CMP, PRL #### [address] NRBC% 0.2 /100{WBC} Normal 0-0.5 [facility] Comment on above: Performed By: #### C BC, PT, PTT, CK, HS TROP, CMP, PRL #### [address] Platelet mean volume (Bld) [Entitic vol] 6.5 fL Low 6.6-10.1 [facility] Comment on above: Performed By: #### C BC, PT, PTT, CK, HS TROP, CMP, PRL #### [address] Platelets (Bld) [#/Vol] 276 10*3/uL Normal 150-450 [facility] Comment on above: Performed By: #### C BC, PT, PTT, CK, HS TROP, CMP, PRL #### [address] RBC (Bld) [#/Vol] 4.13 10*6/uL Normal 3.90-5.60 [facility] Comment on above: Performed By: #### C BC, PT, PTT, CK, HS TROP, CMP, PRL #### [address] WBC (Bld) [#/Vol] 7.5 10*3/uL Normal 4.1-10.5 [facility] Comment on above: Performed By: #### C BC, PT, PTT, CK, HS TROP, CMP, PRL #### [address] Comprehensive Metabolic Pane wilner 05-02-2024 Albumin [Mass/Vol] 3.0 g/dL Low 3.5-5.7 [facility] Comment on above: Performed By: #### C BC, PT, PTT, CK, HS TROP, CMP, PRL #### [address] Albumin/Globulin [Mass ratio] 1.2 {ratio} Normal [facility] Comment on above: Performed By: #### C BC, PT, PTT, CK, HS TROP, CMP, PRL #### [address] ALP [Catalytic activity/Vol] 123 U/L High 34-104 [facility] Comment on above: Performed By: #### C BC, PT, PTT, CK, HS TROP, CMP, PRL #### [address] ALT [Catalytic activity/Vol] 14 U/L Normal 7-52 [facility] Comment on above: Performed By: #### C BC, PT, PTT, CK, HS TROP, CMP, PRL #### [address] Anion gap [Moles/Vol] 3.5 mmol/L Low 6.0-15.0 [facility] Comment on above: Performed By: #### C BC, PT, PTT, CK, HS TROP, CMP, PRL #### [address] AST [Catalytic activity/Vol] 12 U/L Low 13-39 [facility] Comment on above: Performed By: #### C BC, PT, PTT, CK, HS TROP, CMP, PRL #### [address] Bilirubin [Mass/Vol] 0.3 mg/dL Normal 0.3-1.0 [facility] Comment on above: Performed By: #### C BC, PT, PTT, CK, HS TROP, CMP, PRL #### [address] Calcium [Mass/Vol] 8.7 mg/dL Normal 8.6-10.3 [facility] Comment on above: Performed By: #### C BC, PT, PTT, CK, HS TROP, CMP, PRL #### [address] Chloride [Moles/Vol] 91 mmol/L Low 98-107 [facility] Comment on above: Performed By: #### C BC, PT, PTT, CK, HS TROP, CMP, PRL #### [address] CO2 [Moles/Vol] 40.3 mmol/L High 21.0-31.0 [facility] Comment on above: Performed By: #### C BC, PT, PTT, CK, HS TROP, CMP, PRL #### [address] Creatinine [Mass/Vol] 0.89 mg/dL Normal 0.70-1.30 [facility] Comment on above: Performed By: #### C BC, PT, PTT, CK, HS TROP, CMP, PRL #### [address] Creatinine Clr Calc Pharmacy 90.82 Normal [facility] Comment on above: Performed By: #### C BC, PT, PTT, CK, HS TROP, CMP, PRL #### [address] GFR/1.73 sq M.predicted MDRD (S/P/Bld) [Vol rate/Area] mL/min/{1.73_m2} Normal [facility] Comment on above: Performed By: #### C BC, PT, PTT, CK, HS TROP, CMP, PRL #### [address] Globulin (S) [Mass/Vol] 2.5 g/dL Normal [facility] Comment on above: Performed By: #### C BC, PT, PTT, CK, HS TROP, CMP, PRL #### [address] Glucose [Mass/Vol] 100 mg/dL Normal 70-100 [facility] Comment on above: Result Comment: [facility] Glucose Reference Range is dependent on time and content of last meal. Glucose of more than 200 mg/dL in a nonstressed, ambulatory subject supports the diagnosis of Diabetes Mellitus. ADA recommended reference range Performed By: #### C BC, PT, PTT, CK, HS TROP, CMP, PRL #### [address] Potassium [Moles/Vol] 4.8 mmol/L Normal 3.5-5.1 [facility] Comment on above: Performed By: #### C BC, PT, PTT, CK, HS TROP, CMP, PRL #### [address] Protein [Mass/Vol] 5.5 g/dL Low 6.4-8.9 [facility] Comment on above: Performed By: #### C BC, PT, PTT, CK, HS TROP, CMP, PRL #### [address] Sodium [Moles/Vol] 130 mmol/L Low 136-145 [facility] Comment on above: Performed By: #### C BC, PT, PTT, CK, HS TROP, CMP, PRL #### [facility] [address] Urea nitrogen [Mass/Vol] 19 mg/dL Normal 7-25 [facility] Comment on above: Performed By: #### C BC, PT, PTT, CK, HS TROP, CMP, PRL #### [facility] [address] Lactate [Moles/volume] in Se rum or PlasmaOrdered By: Magdy Douglass on 05-02-2024 Lactate [Moles/Vol] 0.6 mmol/L Normal 0.5-2.[address] [facility] Comment on above: Result Comment: PERF ORMED BY: [place] [address] PATHOLOGIST LIFE COACH ULISES MILLS M.D. Performed By: #### C BC, PT, PTT, CK, HS TROP, CMP, PRL #### [address] Legionella Pneumophilia Ag, Uron 05-02-2024 Legionella Pneumophilia Ag, Ur Negative Normal Negative [facility] Comment on above: Order Comment: SOURC E OF SPECIMEN: Urine Result Comment: Pres umptive negative for L. pneumophila serogroup 1 antigen in urine, suggesting no recent or current infection. Legionnaires' disease cannot be ruled out since other serogroups and species may also cause disease. Performed at: - [address] [id number] Waste Specialist: Gareth Alford MD, Phone: [phone] Performed By: #### C BC, PT, PTT, CK, HS TROP, CMP, PRL #### [facility] [address] [place] [address] [place] Magnesium [Mass/volume] in S andrei or PlasmaOrdered By: Magdy Douglass on 05-02-2024 Magnesium [Mass/Vol] 2.1 mg/dL Normal 1.9-2.7 [facility] Comment on above: Performed By: #### C BC, PT, PTT, CK, HS TROP, CMP, PRL #### [address] Strep Pneumoniae Ag, Uron Body Fluid Culture Not indicated. Normal . [facility] Comment on above: Order Comment: SOURC E OF SPECIMEN: Urine Performed By: #### C BC, PT, PTT, CK, HS TROP, CMP, PRL #### [address] Organism ID Not indicated. Normal . [facility] Comment on above: Order Comment: SOURC E OF SPECIMEN: Urine Performed By: #### C BC, PT, PTT, CK, HS TROP, CMP, PRL #### [address] Please Note: Normal . [facility] Comment on above: Order Comment: SOURC E OF SPECIMEN: Urine Result Comment: Alice ege of [place] [employer] standards require a culture to be performed on CSF specimens submitted for bacterial antigen testing. (CAP [id number]) Urine specimens will not be cultured. Performed at: [address] [id number] Waste Specialist: Gareth Alford MD, Phone: [phone] PERFORMED BY: [place] [address] PATHOLOGIST LIFE COACH ULISES MILLS M.D. Performed By: #### C BC, PT, PTT, CK, HS TROP, CMP, PRL #### [address] Specimen source Nom (Unsp spec) Urine Normal . [facility] Comment on above: Order Comment: SOURC E OF SPECIMEN: Urine Performed By: #### C BC, PT, PTT, CK, HS TROP, CMP, PRL #### [address] Streptococcus Pneumoniae Ag Negative Normal Negative [facility] Comment on above: Order Comment: SOURC E OF SPECIMEN: Urine Performed By: #### C BC, PT, PTT, CK, HS TROP, CMP, PRL #### [address] Troponin I High Sensitivityo n 05-02-2024 Troponin I High Sensitivity 74.8 pg/mL Off scale high 0.0-20.0 [facility] Comment on above: Result Comment: Crit ical Result : Called to and read back by: JAYLAN YAO at: 05/02/2024 15:02:51 by:JANET PERFORMED BY: [place] [address] PATHOLOGIST LIFE COACH ULISES MILLS M.D. Performed By: #### C BC, PT, PTT, CK, HS TROP, CMP, PRL #### [facility] [address] [place], [place] [id number] [place] Troponin I High Sensitivity 99.0 pg/mL Off scale high 0.0-20.0 [facility] Comment on above: Result Comment: Crit ical Result : Called to and read back by: MANAN CHEEK at: 05/02/2024 00:45:01 by:[id number] PERFORMED BY: [place] [address] PATHOLOGIST LIFE COACH ULISES MILLS M.D. Performed By: #### C BC, PT, PTT, CK, HS TROP, CMP, PRL #### [facility] [address] [place] [address] [place] Troponin I.cardiac [Mass/vol ume] in Serum or Plasma by Detection limit <= 0.01 ng/Ordered By: Janae Jose on 05-02-2024 Troponin I.cardiac DL <= 0.01 ng/mL [Mass/Vol] 74.8 pg/mL 0.0-20.0 [facility] Comment on above: Critical Result : Ca lled to and read back by: JAYLAN YAO at: 05/02/2024 15:02:51 by:JANET ACETAMINOPHENon 11-24-2022 Acetaminophen [Mass/Vol] ug/mL Normal 10.0-30.0 [facility] Comment on above: Performed By: #### S ALYC, ACET, CMP, ETH #### [facility] [address] [address] [address] Renny Azevedo CBC AUTO DIFFon 11-24-2022 BASO # 0.0 103/ul Normal 0.0-0.1 [facility] Comment on above: Performed By: #### C BC #### [facility] [address] [place] [address] [address] Renny Azevedo Basophils/100 WBC (Bld) 0.8 % Normal 0.2-2.0 [facility] Comment on above: Performed By: #### C BC #### [facility] [address] [place] [address] Dr. Renny Azevedo EO # 0.3 103/ul Normal 0.0-0.7 [facility] Comment on above: Performed By: #### C BC #### [facility] [address] [place] [address] Dr. Renny Azevedo Eosinophils/100 WBC (Bld) 6.2 % Normal 0.9-7.0 [facility] Comment on above: Performed By: #### C BC #### [facility] [address] [place] [address] Dr. Renny Azevedo Erythrocyte distribution width (RBC) [Ratio] 14.8 % Normal 11.0-15.0 [facility] Comment on above: Performed By: #### C BC #### [facility] [address] [place] [address] Dr. Renny Azevedo Hematocrit (Bld) [Volume fraction] 38.6 % Critically low 42.0-54.0 [facility] Comment on above: Performed By: #### C BC #### [facility] [address] [place] [address] Dr. Renny Azevedo Hemoglobin (Bld) [Mass/Vol] 12.6 g/dL Critically low 14.0-18.0 [facility] Comment on above: Performed By: #### C BC #### [facility] [address] [place] [address] Dr. Renny Azevedo IG # 0.01 10e3/ul Normal 0.00-0.03 [facility] Comment on above: Performed By: #### C BC #### [facility] [address] [place] [address] Dr. Renny Azevedo IG % 0.2 % Normal 0.0-0.5 [facility] Comment on above: Performed By: #### C BC #### [facility] [address] [place] [address] Dr. Renny Azevedo LYMPH # 1.4 103/ul Normal 1.2-3.8 [facility] Comment on above: Performed By: #### C BC #### [facility] [address] [place] [address] Dr. Renny Azevedo Lymphocytes/100 WBC (Bld) 28.1 % Normal 20.5-60.0 [facility] Comment on above: Performed By: #### C BC #### [facility] [address] [place] [address] Dr. Renny Azevedo MANUAL DIFF REQ NO Normal [facility] Comment on above: Performed By: #### C BC #### [facility] [address] [place] [address] Dr. Renny Azevedo MCH (RBC) [Entitic mass] 31.0 pg Normal 25.9-34.0 [facility] Comment on above: Performed By: #### C BC #### [facility] [address] [place] [address] Dr. Renny Azevedo MCHC (RBC) [Mass/Vol] 32.6 g/dL Normal 29.9-35.2 [facility] Comment on above: Performed By: #### C BC #### [facility] [address] [place] [address] Dr. Renny Azevedo MCV (RBC) [Entitic vol] 95.1 fL Critically high 80.0-94.0 [facility] Comment on above: Performed By: #### C BC #### [facility] [address] [place] [address] Dr. Renny Azevedo MONO # 0.3 103/ul Normal 0.3-0.8 [facility] Comment on above: Performed By: #### C BC #### [facility] [address] [place] [address] Dr. Renny Azevedo Monocytes/100 WBC (Bld) 5.8 % Normal 1.7-12.0 [facility] Comment on above: Performed By: #### C BC #### [facility] [address] [place] [address] [address] Renny Azevedo NEUT # 3.0 103/ul Normal 1.4-6.5 [facility] Comment on above: Performed By: #### C BC #### [facility] [address] [place] [address] [address] Renny Azevedo Neutrophils/100 WBC (Bld) 58.9 % Normal 43.0-75.0 [facility] Comment on above: Performed By: #### C BC #### [facility] [address] [place] [address] [address] Renny Azevedo Platelet mean volume (Bld) [Entitic vol] 8.8 fL Critically low 9.5-13.5 [facility] Comment on above: Performed By: #### C BC #### [facility] [address] [place] [address] Dr. Renny Azevedo PLT 260 103/ul Normal 150-450 [facility] Comment on above: Performed By: #### C BC #### [facility] [address] [place] [address] [address] Renny Azevedo RBC 4.06 106/ul Critically low 4.70-6.10 [facility] Comment on above: Performed By: #### C BC #### [facility] [address] [place] [address] [address] Renny Azevedo WBC 5.0 103/ul Normal 4.0-11.0 [facility] Comment on above: Performed By: #### C BC #### [facility] [address] [place] [address] CSPINE WO CONon [...] by: VIC ADAMES Date: 2022-11-24 05:42 Normal [facility] CT FACIAL BONES WO CONon CT FACIAL [...] ANNA RICO Date: 2022-11-24 05:43 Normal [facility] DRUG SCREEN RAPID (URINE)on 11-24-2022 AMP Positive Abnormal NEGATIVE [facility] Comment on above: Performed By: #### D RUGRPD #### [facility] [address] [place] [address] Dr. Renny Azevedo BAR Negative Normal NEGATIVE [facility] Comment on above: Performed By: #### D RUGRPD #### [facility] [address] [place] [place] [address] [address] Renny Azevedo BUP Negative Normal NEGATIVE [facility] Comment on above: Performed By: #### D RUGRPD #### [facility] [address] [place] [address] Dr. Renny Azevedo BZO Negative Normal NEGATIVE [facility] Comment on above: Performed By: #### D RUGRPD #### [facility] [address] [place] [address] Dr. Renny Azevedo SHAYE Positive Abnormal NEGATIVE [facility] Comment on above: Performed By: #### D RUGRPD #### [facility] [address] [place] [address] Dr. Renny Azevedo CUT-OFFS SEE BELOW Normal [facility] Comment on above: Result Comment: [...] ng/mL Performed By: #### D RUGRPD #### [facility] [address] [place] [address] Dr. Renny Azevedo DRUG CUT HEADER DRUG CLASS TEST SYST EM CUT-OFF CONCENTRATIONS ARE FOLLOWS: Normal [facility] Comment on above: Performed By: #### D RUGRPD #### [facility] [address] [place] [address] Dr. Renny Azevedo mAMP Positive Abnormal NEGATIVE [facility] Comment on above: Performed By: #### D RUGRPD #### [facility] [address] [place] [address] Dr. Renny Azevedo MTD Negative Normal NEGATIVE [facility] Comment on above: Performed By: #### D RUGRPD #### [facility] [address] [place] [address] Dr. Renny Azevedo OPI Negative Normal NEGATIVE [facility] Comment on above: Performed By: #### D RUGRPD #### [facility] [address] [place] [address] Dr. Renny Azevedo OXY Negative Normal NEGATIVE [facility] Comment on above: Performed By: #### D RUGRPD #### [facility] [address] [place] [address] Dr. Renny Azevedo PCP Negative Normal NEGATIVE [facility] Comment on above: Performed By: #### D RUGRPD #### [facility] [address] [place] [address] Dr. Renny Azevedo PPX Negative Normal NEGATIVE [facility] Comment on above: Performed By: #### D RUGRPD #### [facility] [address] [place] [address] Dr. Renny Azevedo TCA Negative Normal NEGATIVE [facility] Comment on above: Performed By: #### D RUGRPD #### [facility] [address] [place] [address] Dr. Renny Azevedo THC Negative Normal NEGATIVE [facility] Comment on above: Performed By: #### D RUGRPD #### [facility] [address] [place] [address] Dr. Renny Azevedo ETHANOL (BLD ALC)on 11-24-19 23 ALC NOTE NOTE: 80 mg/dl is th e legal limit for a blood alcohol level Normal [facility] Comment on above: Performed By: #### E TH #### [facility] [address] [place] [address] Dr. Renny Azevedo Ethanol [Mass/Vol] 169 mg/dL Normal [facility] Comment on above: Performed By: #### E TH #### [facility] [address] [place] [address] Dr. Renny Azevedo ALC NOTE NOTE: 80 mg/dl is th e legal limit for a blood alcohol level Normal [facility] Comment on above: Performed By: #### S ALYC, ACET, CMP, ETH #### [facility] [address] [place] [address] Dr. Renny Azevedo Ethanol [Mass/Vol] 239 mg/dL Normal [facility] Comment on above: Performed By: #### S ALYC, ACET, CMP, ETH #### [facility] [address] [place] [address] Dr. Renny Azevedo PROF 14(COMP METB)on 023 Albumin [Mass/Vol] 4.2 g/dL Normal 3.4-5.0 [facility] Comment on above: Performed By: #### S ALYC, ACET, CMP, ETH #### [facility] [address] [place] [address] Dr. Renny Azevedo Albumin/Globulin [Mass ratio] 1.3 {ratio} Normal [facility] Comment on above: Performed By: #### S ALYC, ACET, CMP, ETH #### [facility] [address] [place] [address] Dr. Renny Azevedo ALP [Catalytic activity/Vol] 99 U/L Normal 46-116 [facility] Comment on above: Performed By: #### S ALYC, ACET, CMP, ETH #### [facility] [address] [address] [address] Renny Azevedo ALT [Catalytic activity/Vol] 157 U/L Critically high 16-63 [facility] Comment on above: Performed By: #### S ALYC, ACET, CMP, ETH #### [facility] [address] [address] [address] Renny Azevedo Anion gap [Moles/Vol] 10.0 mmol/L Normal [facility] Comment on above: Performed By: #### S ALYC, ACET, CMP, ETH #### [facility] [address] [place] [address] Dr. Renny Azevedo AST [Catalytic activity/Vol] 362 U/L Critically high 15-37 [facility] Comment on above: Performed By: #### S ALYC, ACET, CMP, ETH #### [facility] [address] [address] [address] Renny Azevedo Bilirubin [Mass/Vol] 0.3 mg/dL Normal 0.2-1.0 [facility] Comment on above: Performed By: #### S ALYC, ACET, CMP, ETH #### [facility] [address] [place] [address] Dr. Renny Azevedo Calcium [Mass/Vol] 8.7 mg/dL Normal 8.5-10.1 [facility] Comment on above: Performed By: #### S ALYC, ACET, CMP, ETH #### [facility] [address] [address] [address] Renny Azevedo Chloride [Moles/Vol] 92 mmol/L Critically low 98-107 [facility] Comment on above: Performed By: #### S ALYC, ACET, CMP, ETH #### [facility] [address] [address] [address] Renny Azevedo CO2 [Moles/Vol] 30.4 mmol/L Normal 21.0-32.0 [facility] Comment on above: Performed By: #### S ALYC, ACET, CMP, ETH #### [facility] [address] [place] [address] Dr. Renny Azevedo Creatinine [Mass/Vol] 1.60 mg/dL Critically high 0.70-1.30 [facility] Comment on above: Performed By: #### S ALYC, ACET, CMP, ETH #### [facility] [address] [place] [address] Dr. Renny Azevedo EGFR-AF WALLISIAN 53 mL/min/1.73m2 Critically low >=60 [facility] Comment on above: Performed By: #### S ALYC, ACET, CMP, ETH #### [facility] [address] [place] [address] Dr. Renny Azevedo EGFR-NON AF WALLISIAN 44 mL/min/1.73m2 Critically low >=60 [facility] Comment on above: Performed By: #### S ALYC, ACET, CMP, ETH #### [facility] [address] [place] [address] Dr. Renny Azevedo Globulin (S) [Mass/Vol] 3.2 g/dL Normal [facility] Comment on above: Performed By: #### S ALYC, ACET, CMP, ETH #### [facility] [address] [place] [address] Dr. Renny Azevedo Glucose [Mass/Vol] 82 mg/dL Normal 74-106 [facility] Comment on above: Performed By: #### S ALYC, ACET, CMP, ETH #### [facility] [address] [place] [address] Dr. Renny Azevedo Potassium [Moles/Vol] 3.4 mmol/L Critically low 3.5-5.1 [facility] Comment on above: Performed By: #### S ALYC, ACET, CMP, ETH #### [facility] [address] [place] [address] Dr. Renny Azevedo Protein [Mass/Vol] 7.4 g/dL Normal 6.4-8.2 [facility] Comment on above: Performed By: #### S ALYC, ACET, CMP, ETH #### [facility] [address] [address] [address] Renny Azevedo Sodium [Moles/Vol] 129 mmol/L Critically low 136-145 [facility] Comment on above: Performed By: #### S ALYC, ACET, CMP, ETH #### [facility] [address] [address] [address] Renny Azevedo Urea nitrogen [Mass/Vol] 17.0 mg/dL Normal 7.0-18.0 [facility] Comment on above: Performed By: #### S ALYC, ACET, CMP, ETH #### [facility] [address] [address] [address] Renny Azevedo Urea nitrogen/Creatinine [Mass ratio] 10.6 mg/mg Normal [facility] Comment on above: Performed By: #### S ALYC, ACET, CMP, ETH #### [facility] [address] [place] [address] Dr. Renny Azevedo SALICYLATEon 11-24-2022 SALICYLATE 4.7 mg/dL Normal <=19.9 [facility] Comment on above: Performed By: #### S ALYC, ACET, CMP, ETH #### [facility] [address] [place] [address] LUMBAR SPINE WO [...] by:VANESA Tavaresigned by:Jay Gross MD10/14/18Final result Normal [facility] COMPLETE BLOOD COUNT W/DIFFo n 07-02-2018 Basophils Auto #/vol (Bld) 0.02 10*3/uL Normal 0.00-0.20 [facility] Comment on above: Performed By: #### C BCD ####[facility] PATHOLOGY [id number] [place] [address], Basophils/100 WBC Auto (Bld) 0.5 % Normal <=1.9 [facility] Comment on above: Performed By: #### C BCD ####[facility] PATHOLOGY [id number] [place] [address], Eosinophils Auto #/vol (Bld) 0.08 10*3/uL Normal 0.00-0.70 [facility] Comment on above: Performed By: #### C BCD ####[facility] PATHOLOGY [id number] [place] [address], Eosinophils/100 WBC Auto (Bld) 2.0 % Normal 0.1-4.0 [facility] Comment on above: Performed By: #### C BCD ####[facility] PATHOLOGY [id number] [place] [address], Erythrocyte distribution width Auto Ratio (RBC) 13.5 % Normal 11.5-14.5 [facility] Comment on above: Performed By: #### C BCD ####[facility] PATHOLOGY [id number] [place] [address], Hematocrit Auto Volume Fraction (Bld) 42.3 % Normal 41.0-53.0 [facility] Comment on above: Performed By: #### C BCD ####[facility] PATHOLOGY [id number] [place] [address], Hemoglobin mass conc (Bld) 13.9 g/dL Normal 13.9-16.3 [facility] Comment on above: Performed By: #### C BCD ####[facility] PATHOLOGY [id number] [place] [address], Lymphocytes Auto #/vol (Bld) 1.22 10*3/uL Normal 1.00-4.80 [facility] Comment on above: Performed By: #### C BCD ####[facility] PATHOLOGY [id number] [place] [address], Lymphocytes/100 WBC Auto (Bld) 30.9 % Normal 24.0-44.0 [facility] Comment on above: Performed By: #### C BCD ####[facility] PATHOLOGY [id number] [place] [address], MCH Auto Entitic mass (RBC) 28.8 pg Normal 26.0-34.0 [facility] Comment on above: Performed By: #### C BCD ####[facility] PATHOLOGY [id number] [place] [address], MCHC Auto mass conc (RBC) 32.9 g/dL Normal 32.0-35.9 [facility] Comment on above: Performed By: #### C BCD ####[facility] PATHOLOGY [id number] [place] [address], MCV Auto Entitic volume (RBC) 88 fL Normal 80-100 [facility] Comment on above: Performed By: #### C BCD ####[facility] PATHOLOGY [id number] [place] [address], Monocytes Auto #/vol (Bld) 0.23 10*3/uL Normal 0.20-1.00 [facility] Comment on above: Performed By: #### C BCD ####[facility] PATHOLOGY [id number] [place] [address], Monocytes/100 WBC Auto (Bld) 5.8 % Normal 2.0-11.0 [facility] Comment on above: Performed By: #### C BCD ####[facility] PATHOLOGY [id number] [place] [address] [place], Neutrophils Auto #/vol (Bld) 2.40 10*3/uL Normal 1.50-8.00 [facility] Comment on above: Performed By: #### C BCD ####[facility] PATHOLOGY [id number] [place], [place], Neutrophils/100 WBC Auto (Bld) 60.8 % Normal 31.0-76.0 [facility] Comment on above: Performed By: #### C BCD ####[facility] PATHOLOGY [id number] [place] [address], Platelet mean volume Auto Entitic volume (Bld) 9.6 fL Normal 8.5-11.5 [facility] Comment on above: Performed By: #### C BCD ####[facility] PATHOLOGY [id number] [place] [address], Platelets Auto #/vol (Bld) 243 10*3/uL Normal 150-400 [facility] Comment on above: Performed By: #### C BCD ####[facility] PATHOLOGY [id number] [place] [address], RBC Auto #/vol (Bld) 4.83 10*6/uL Normal 4.50-5.90 Th [facility] Comment on above: Performed By: #### C BCD ####[facility] PATHOLOGY [id number] [place] [address], WBC Auto #/vol (Bld) 4.0 10*3/uL Low 4.5-11.5 [facility] Comment on above: Performed By: #### C BCD ####S PATHOLOGY VXRNTKNINB8792 [place], [place], HEPATIC FUNCTION PANELon Albumin mass conc 4.2 g/dL Normal 3.4-5.1 [facility] Comment on above: Performed By: #### H EPATIC ####S PATHOLOGY IUTXMBCWBF[address] [place] [address], ALK 92 IU/L Normal 40-200 [facility] Comment on above: Performed By: #### H EPATIC ####[facility] JLLWEDZAJS6762 [place], [place], ALT enzyme act/vol 18 U/L Normal 7-40 [facility] Comment on above: Performed By: #### H EPATIC ####[facility] PATHOLOGY [id number] [place], [place], AST enzyme act/vol 21 U/L Normal 7-40 [facility] Comment on above: Performed By: #### H EPATIC ####[facility] PATHOLOGY [id number] [place] [address], Bilirubin mass conc 0.10 mg/dL Normal 0.10-0.30 [facility] Comment on above: Performed By: #### H EPATIC ####[facility] PATHOLOGY [id number] [place] [address], Bilirubin Ql (U) 0.6 mg/dL Normal 0.1-1.5 [facility] Comment on above: Performed By: #### H EPATIC ####[facility] PATHOLOGY [id number] [place] [address], Protein mass conc 6.1 g/dL Normal 5.8-8.1 [facility] Comment on above: Performed By: #### H EPATIC ####[facility] PATHOLOGY [id number] [place] [address], HEPATITIS B CORE ANTIBODYon 07-02-2018 CORE Nonreactive Normal Nonreactive [facility] Comment on above: Performed By: #### A NTI-HBS, HBSAG, CORE ####[facility] PATHOLOGY [id number] [place] [address], HEPATITIS B SURFACE ANTIBODY on 07-02-2018 ANTI-HBS < 3.1 Normal [facility] Comment on above: Order Comment: Nonre active: Samples < 7.5 mIU/mLReactive: Samples >/= 10.0 mIU/mLThe accepted criteria for immunity to HBV is anti-HBs activity >/= 10 mIU/mL, as defined by the WHO International Reference Preparation. Performed By: #### A NTI-HBS, HBSAG, CORE ####[facility] PATHOLOGY [id number] [place] [address], HEPATITIS B SURFACE ANTIGENo n 07-02-2018 Body surface area Derived from formula Non-Reactive Normal Non-Reactive [facility] Comment on above: Performed By: #### A NTI-HBS, HBSAG, CORE ####S PATHOLOGY [id number] [place], HEPATITIS C ANTIBODYon 07-02 HCV Reactive Abnormal Nonreactive [facility] Comment on above: Performed By: #### H CV, HEP C QNT ####S PATHOLOGY RIABZIOQQP0187 [place], [place], HEPATITIS C QUANT BY PCRon 0 07-02-2018 HEP C QNT (ND) Not Detected Normal Not Detected [facility] Comment on above: Order Comment: This test is performed by a quantitative polymerase chain reaction (PCR) method (Ampliprep/SARAY TaqMan test, v2.0, [employer] [place], [place]) that is intended [...] (PCR) method (Ampliprep/SARAY TaqMan test, v2.0, [employer] [place], [place]) that is intended to be used as an aid in the diagnosis of HCV infection (genotypes 1 to 6) and also as an aid in the management of HCV infected patients undergoing anti-viral therapy in conjunction with clinical and other laboratory markers of infection. Performed By: #### H CV, HEP C QNT ####[facility] [id number] [place], [place], HIV1 HIV2 AGAB SCRNon 2017 HIV AG-AB Non-Reactive Normal Non-Reactive [facility] Comment on above: Order Comment: HIV I nformation: ?[place] Rev. code 3701.243(E):This information has been disclosed [...] By: #### h iv1 hiv2 agab scrn ####[facility] PATHOLOGY [id number] [place], HIV-1 AB Non-Reactive Normal Non-Reactive [facility] Comment on above: Order Comment: HIV I nformation: ?[place] Rev. code 3701.243(E):This information has been disclosed [...] By: #### h iv1 hiv2 agab scrn ####[facility] PATHOLOGY [id number] [place], [place], HIV-1 P24 ANTIGEN Non-Reactive Normal Non-Reactive [facility] Comment on above: Order Comment: HIV I nformation: ?[place] Rev. code 3701.243(E):This information has been disclosed [...] h iv1 hiv2 agab scrn ####S PATHOLOGY [id number] [place], HIV-2 AB Non-Reactive Normal Non-Reactive [facility] Comment on above: Order Comment: HIV I nformation: ?[place] Rev. code 3701.243(E):This information has been disclosed [...] h iv1 hiv2 agab scrn ####S PATHOLOGY [id number] [place], [place], SYPHILIS WITH CONFIRMATIONon 07-02-2018 Reagin Ab RPR Ql (S) Non-Reactive Normal Non-Reactive [facility] Comment on above: Order Comment: No se rological evidence of infection with T. pallidum.A nonreactive result does not exclude the possibility of exposure to or infection with T. pallidum. Antibodies may be at low or undetectable levels in incubating or early primary disease and in some clinical conditions. Performed By: #### s dao with confirmation ####S PATHOLOGY [id number] [place], SYPHILIS TOTAL (IGG/IGM) Non-Reactive Normal Non-Reactive [facility] Comment on above: Order Comment: No se rological evidence of infection with T. pallidum.A nonreactive result does not exclude the possibility of exposure to or infection with T. pallidum. Antibodies may be at low or undetectable levels in incubating or early primary disease and in some clinical conditions. Performed By: #### s dao with confirmation ####S PATHOLOGY EMWMZRXGMY1743 [place], [place], DISCHARGE SUMMARYon 02-06-20 18 DISCHARGE SUMMARY [address] [address] DISCHARGE SUMMARYPATIENT NAME: AARON OLIVAREZ : 1960MED REC NO: [id number] ROOM: 0130ACCOUNT NO: [id number] ADMIT DATE: 01/29/2018PROVIDER: Elian Powelli DISCH DATE:HISTORY [...] . With this, he is admitted to [facility] from [place].PAST PSYCHIATRIC HISTORY: History of major depression and [...] patient [facility]. [facility]ELIAN JOEURTID: 02/05/2018 9:02:31 [id number]#: [id number] Doc#: [id number]: Normal [facility] CBC with Diffon 01-30-2018 Abs. Basophil 0.00 k/uL Normal 0.0-0.2 [facility] Comment on above: Performed By: #### C P, LIPR, TSHX, CDP ####[facility] [place] [address] #### T3, T4 ####[facility] [place] [address] Abs.Neutrophil (Seg) 1.83 k/uL Normal 1.3-9.1 [facility] Comment on above: Performed By: #### C P, LIPR, TSHX, CDP ####[address] [address] #### T3, T4 ####[address] [address] Basophils/100 WBC Auto (Bld) 0 % Normal 0-2 [facility] Comment on above: Performed By: #### C P, LIPR, TSHX, CDP ####[address] [address] #### T3, T4 ####[address] [address] Blood morphology Normal Normal [facility] Comment on above: Result Comment: Perf ormed at [facility] [address] [place] [address] Performed By: #### C P, LIPR, TSHX, CDP ####[address] [address] #### T3, T4 ####[address] [address] Eosinophils 0.04 10*3/uL Normal 0.0-0.4 [facility] Comment on above: Performed By: #### C P, LIPR, TSHX, CDP ####[address] [address] #### T3, T4 ####[address] [address] Eosinophils/100 leukocytes 1 % Normal 0-4 [facility] Comment on above: Performed By: #### C P, LIPR, TSHX, CDP ####[address] [place] [address] #### T3, T4 ####[address] [address] Lymphocytes 1.87 10*3/uL Normal 1.0-4.8 [facility] Comment on above: Performed By: #### C P, LIPR, TSHX, CDP ####[address] [address] #### T3, T4 ####[address] [address] Lymphocytes/100 leukocytes 48 % High 24-44 [facility] Comment on above: Performed By: #### C P, LIPR, TSHX, CDP ####[address] [address] #### T3, T4 ####[address] [address] Monocytes 0.16 10*3/uL Normal 0.1-1.3 [facility] Comment on above: Performed By: #### C P, LIPR, TSHX, CDP ####[address] [address] #### T3, T4 ####[address] [address] Monocytes/100 leukocytes 4 % Normal 1-7 [facility] Comment on above: Performed By: #### C P, LIPR, TSHX, CDP ####[address] [address] #### T3, T4 ####[address] [address] Neutrophil (Seg) 47 % Normal 36-66 [facility] Comment on above: Performed By: #### C P, LIPR, TSHX, CDP ####[facility] [place] [address] #### T3, T4 ####[address] [address] Erythrocyte distribution width Auto Ratio (RBC) 13.8 % Normal 11.5-14.9 [facility] Comment on above: Performed By: #### C P, LIPR, TSHX, CDP ####[address] [address] #### T3, T4 ####[address] [address] Erythrocytes (RBC) 4.72 10*6/uL Normal 4.5-5.9 [facility] Comment on above: Performed By: #### C P, LIPR, TSHX, CDP ####[address] [address] #### T3, T4 ####[address] [address] Hematocrit (HCT) 42.2 % Normal 41-53 [facility] Comment on above: Performed By: #### C P, LIPR, TSHX, CDP ####[address] [address] #### T3, T4 ####[address] [address] Hemoglobin mass conc (Bld) 13.9 g/dL Normal 13.5-17.5 [facility] Comment on above: Performed By: #### C P, LIPR, TSHX, CDP ####[address] [address] #### T3, T4 ####[address] [place] [address] MCH 29.6 pg Normal 26-34 [facility] Comment on above: Performed By: #### C P, LIPR, TSHX, CDP ####[address] [address] #### T3, T4 ####[address] [address] MCHC mass conc (RBC) 33.0 g/dL Normal 31-37 [facility] Comment on above: Performed By: #### C P, LIPR, TSHX, CDP ####[address] [address] #### T3, T4 ####[address] [address] MCV 89.5 fL Normal 80-100 [facility] Comment on above: Performed By: #### C P, LIPR, TSHX, CDP ####[address] [address] #### T3, T4 ####[address] [address] Platelet mean volume (PMV) 7.3 fL Normal 6.0-12.0 [facility] Comment on above: Performed By: #### C P, LIPR, TSHX, CDP ####[address] [address] #### T3, T4 ####[address] [address] Platelets 198 10*3/uL Normal 150-450 [facility] Comment on above: Performed By: #### C P, LIPR, TSHX, CDP ####[address] [address] #### T3, T4 ####[address] [address] WBC (Leukocytes) 3.9 10*3/uL Normal 3.5-11.0 [facility] Comment on above: Performed By: #### C P, LIPR, TSHX, CDP ####[address] [address] #### T3, T4 ####[address] [address] Auto Diff Performed NOT REPORTED Normal [facility] Comment on above: Performed By: #### C P, LIPR, TSHX, CDP ####[address] [address] #### T3, T4 ####[address] [address] Erythrocyte morphology NOT REPORTED Normal [facility] Comment on above: Performed By: #### C P, LIPR, TSHX, CDP ####[address] [address] #### T3, T4 ####[address] [address] Erythrocytes (RBC) NOT REPORTED Normal [facility] Comment on above: Performed By: #### C P, LIPR, TSHX, CDP ####[address] [address] #### T3, T4 ####[address] [address] Granulocytes/100 WBC (Bld) NOT REPORTED Normal 0.00-0.30 [facility] Comment on above: Performed By: #### C P, LIPR, TSHX, CDP ####[address] [place] [address] #### T3, T4 ####[address] [place] [address] Immature granulocytes #/vol (Bld) NOT REPORTED Normal 0 [facility] Comment on above: Performed By: #### C P, LIPR, TSHX, CDP ####[address] [address] #### T3, T4 ####[address] [address] Platelets NOT REPORTED Normal [facility] Comment on above: Performed By: #### C P, LIPR, TSHX, CDP ####[address] [address] #### T3, T4 ####[address] [address] WBC Morphology NOT REPORTED Normal [facility] Comment on above: Performed By: #### C P, LIPR, TSHX, CDP ####[address] [address] #### T3, T4 ####[address] [address] Comp Metabolic Profon 2017 (cont.) Normal [facility] Comment on above: Result Comment: Aver age GFR for 50-59 years old: 93 mL/min/1.73sq mChronic Kidney Disease: <60 mL/min/1.73sq mKidney failure: <15 mL/min/1.73sq meGFR calculated using average adult body mass. Additional eGFR calculator available at:http://[email or web address]/multiple_crcl_2012.htmPerformed at [address] [address] Performed By: #### C P, LIPR, TSHX, CDP ####[facility] [facility] [address] #### T3, T4 ####[address] [address] Alanine aminotransferase (ALT) 11 U/L Normal 5-41 [facility] Comment on above: Performed By: #### C P, LIPR, TSHX, CDP ####[facility] [place] [address] [place] [address] #### T3, T4 ####[address] [address] Albumin 3.6 g/dL Normal 3.5-5.2 [facility] Comment on above: Performed By: #### C P, LIPR, TSHX, CDP ####[address] [place] [address] #### T3, T4 ####[address] [address] Alkaline Phos 104 U/L Normal 40-129 [facility] Comment on above: Performed By: #### C P, LIPR, TSHX, CDP ####[address] [place] [address] #### T3, T4 ####[address] [address] Anion gap 7 mmol/L Low 9-17 [facility] Comment on above: Performed By: #### C P, LIPR, TSHX, CDP ####[address] [place] [address] #### T3, T4 ####[address] [address] Aspartate aminotransferase (AST) 13 U/L Normal <40 [facility] Comment on above: Performed By: #### C P, LIPR, TSHX, CDP ####[address] [address] #### T3, T4 ####[address] [address] Bilirubin Ql (U) 0.26 mg/dL Low 0.3-1.2 [facility] Comment on above: Performed By: #### C P, LIPR, TSHX, CDP ####[address] [address] #### T3, T4 ####[address] [address] Calcium 8.6 mg/dL Normal 8.6-10.4 [facility] Comment on above: Performed By: #### C P, LIPR, TSHX, CDP ####[address] [address] #### T3, T4 ####[address] [address] Chloride 106 mmol/L Normal 98-107 [facility] Comment on above: Performed By: #### C P, LIPR, TSHX, CDP ####[address] [address] #### T3, T4 ####[address] [place] [address] CO2 29 mmol/L Normal 20-31 [facility] Comment on above: Performed By: #### C P, LIPR, TSHX, CDP ####[address] [address] #### T3, T4 ####[address] [address] Creatinine 1.01 mg/dL Normal 0.70-1.20 [facility] Comment on above: Performed By: #### C P, LIPR, TSHX, CDP ####[facility] [place] [address] #### T3, T4 ####[address] [address] eGFR (non-black) mL/min/{1.73_m2} Normal >60 [facility] Comment on above: Performed By: #### C P, LIPR, TSHX, CDP ####[address] [address] #### T3, T4 ####[address] [address] Glucose mass conc 100 mg/dL High 70-99 [facility] Comment on above: Performed By: #### C P, LIPR, TSHX, CDP ####[address] [address] #### T3, T4 ####[address] [address] Potassium molar conc 4.1 mmol/L Normal 3.7-5.3 [facility] Comment on above: Performed By: #### C P, LIPR, TSHX, CDP ####[address] [address] #### T3, T4 ####[address] [address] Protein 5.9 g/dL Low 6.4-8.3 [facility] Comment on above: Performed By: #### C P, LIPR, TSHX, CDP ####[facility] [place] [address] #### T3, T4 ####[address] [place] [address] Sodium 142 mmol/L Normal 135-144 [facility] Comment on above: Performed By: #### C P, LIPR, TSHX, CDP ####[facility] [place] [address] #### T3, T4 ####[address] [address] Urea nitrogen 19 mg/dL Normal 6-20 [facility] Comment on above: Performed By: #### C P, LIPR, TSHX, CDP ####[address] [address] #### T3, T4 ####[address] [address] Albumin/Globulin Ratio NOT REPORTED Normal 1.0-2.5 [facility] Comment on above: Performed By: #### C P, LIPR, TSHX, CDP ####[address] [place] [address] #### T3, T4 ####[place] [address] [place] [address] BUN/CRE Ratio NOT REPORTED Normal -20 [facility] Comment on above: Performed By: #### C P, LIPR, TSHX, CDP ####[address] [address] #### T3, T4 ####[place] [address] [place] [address] Staging: NOT REPORTED Normal [facility] Comment on above: Performed By: #### C P, LIPR, TSHX, CDP ####[facility] [place] [address] #### T3, T4 ####[address] [address] Lipid Profileon 01-30-2018 Cholesterol 172 mg/dL Normal <200 [facility] Comment on above: Result Comment: Chol esterol Guidelines: <200 Desirable 200-240 Borderline >240 Undesirable Performed By: #### C P, LIPR, TSHX, CDP ####[address] [address] #### T3, T4 ####[address] [address] Cholesterol to HDL Ratio 3.4 {ratio} Normal <5 [facility] Comment on above: Performed By: #### C P, LIPR, TSHX, CDP ####[address] [address] #### T3, T4 ####[address] [address] HDL Cholesterol 50 mg/dL Normal >40 [facility] Comment on above: Result Comment: HDL Guidelines: <40 Undesirable 40-59 Borderline >59 Desirable Performed By: #### C P, LIPR, TSHX, CDP ####[address] [address] #### T3, T4 ####[address] [address] LDL Cholesterol 93 mg/dL Normal 0-130 [facility] Comment on above: Result Comment: LDL Guidelines: <100 Desirable 100-129 Near to/above Desirable 130-159 Borderline >159 UndesirableDirect (measured) LDL and calculated LDL are not interchangeable tests. Performed By: #### C P, LIPR, TSHX, CDP ####[facility] [place] [address] #### T3, T4 ####[address] [address] Triglyceride 146 mg/dL Normal <150 [facility] Comment on above: Result Comment: Trig lyceride Guidelines: <150 Desirable 150- 199 Borderline 200-499 High >499 Very high Based on AHA Guidelines for fasting triglyceride, August 2012.Performed at [address] [address] Performed By: #### C P, LIPR, TSHX, CDP ####[address] [place] [address] #### T3, T4 ####[address] [address] Cholesterol in VLDL mass conc NOT REPORTED Normal 12-12 [facility] Comment on above: Performed By: #### C P, LIPR, TSHX, CDP ####[address] [address] #### T3, T4 ####[address] [address] TSH w/reflex to FT4on 2017 Thyroid stimulating hormone (TSH) 1.17 m[IU]/L Normal 0.30-5.00 [facility] Comment on above: Result Comment: Perf ormed at [facility] [address] [place] [address] Performed By: #### C P, LIPR, TSHX, CDP ####[address] [place] [address] #### T3, T4 ####[address] [address] Thyroxine T4on 01-30-2018 Thyroxine (T4) 5.1 ug/dL Normal 4.5-12.0 [facility] Comment on above: Result Comment: Perf ormed at [address] [address] Performed By: #### C P, LIPR, TSHX, CDP ####[address] [address] #### T3, T4 ####[address] [address] Triiodothyronine T3on 2017 Triiodothyronine T3 103 ng/dL Normal 80-200 [facility] Comment on above: Result Comment: Perf ormed at [address] [address] Performed By: #### C P, LIPR, TSHX, CDP ####[address] [address] #### T3, T4 ####[address] [address] PSYCHIATRIC EVALUATIONon PSYCHIATRIC EVALUATION [address] [address] PSYCHIATRIC EVALUATIONPATIENT NAME: AARON OLIVAREZ : 1960MED REC NO: [id number] ROOM: 0130ACCOUNT NO: [id number] ADMIT DATE: 01/29/2018PROVIDER: Elian IndurtiCOMPREHENSIVE PSYCHIATRIC EVALUATIONHISTORY OF PRESENTING ILLNESS AND REASON FOR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 Acct:[id number] Age/Sex: 63 / M Adm Date: 4 Loc: Room: [address] [place] [address]: Kiko Maldonado MD Copies to: [...] He presented to the emergency department at [facility] on May 01, with complaints [...] signed by Kiko Maldonado MD> 05/06/24 1421 [facility] Work Phone: 1(953) 704-740306-24-2024 Progress note Author Thanh Paris [facility] Shruthi 24th, 2024 10:16am Note Date/Time May 06, 2024 10:1 6am [facility] [address] [place] [address] Pulmonology Progress Note Signed Patient: Aaron Olivarez MR#: [id number] : 1960 Acct:[id number] Age/Sex: 63 / M Adm Date: 4 Loc: Room: [address] [place] [address] Type: ADM IN Attending Dr: Janae Jose MD Copies to: ~ Date of Service: 05/06/2024 Subjective Subjective Narrative: Patient voices no complaints at the time my evaluation. He is very interested in being discharged today as he can relax at home as opposed to being in the hospital. He knows he is in a hospital but does not know that he is at [facility] in [place]. He also knows it is 2023. Exam [...] signed by MD Thanh Paris> 05/06/24 1016 [facility] Work Phone: 1(329) 523-862106-23-2024 Progress note Author Janae Jose [facility] May 05, 2024 1:27pm Note Date/Time May 05, 2024 1:22 pm [facility] [address] [place] [address] Hospitalist Progress Note Signed Patient: Aaron Olivarez MR#: [id number] : 1960 Acct:[id number] Age/Sex: 63 / M Adm Date: 4 Loc: Room: [address] [place] [address] Type: ADM IN Attending Dr: Janae Jose [...] down without significant elevation. Suspecting type II MA from hypoxia. Echocardiogram showing preserved ejection fraction with mild LVH. No wall motion abnormality seen. EKG negative for acute ischemic changes. Documented By: Janae Jose MD 05/05/24 1319 Signed By: <Electronically signed by Janae Jose MD> 05/05/24 1327 [facility] Work Phone: 1(703) 453-380806-23-2024 Progress note Author Víctor Agrawal [facility] May 05, 2024 11:29am Note Date/Time May 05, 2024 11:2 9am [facility] [address] [place] [address] Pulmonology Progress Note Signed Patient: Aaron Olivarez MR#: [id number] : 1960 Acct:[id number] Age/Sex: 63 / M Adm Date: 4 Loc: Room: [address] [place] [address] Type: ADM IN Attending Dr: Janae Jose [...] edema, no clubbing. Skin: No skin rash ASSESSMENT NURSE PRACTITIONER: Sleepy, easily arousable, no focal deficits. Objective [...] <Electronically signed by Víctor Agrawal MD> 05/05/24 1127 [facility] Work Phone: 1([phone]) 924-811506-22-2024 Progress note Author Janae Jose [facility] May 04, 2024 12:19pm Note Date/Time May 04, 2024 12:1 3pm [facility] [address] [place] [address] Hospitalist Progress Note Signed Patient: Aaron Olivarez MR#: [id number] : 1960 Acct:[id number] Age/Sex: 63 / M Adm Date: 4 Loc: Room: [address] [place] [address] Type: ADM IN Attending Dr: Janae Jose [...] down without significant elevation. Suspecting type II MA from hypoxia. Echocardiogram showing preserved ejection fraction with mild LVH. No wall motion abnormality seen. Negative for acute ischemic changes. Documented By: Janae Jose MD 05/04/241209 Signed By: <Electronically signed by Janae Jose MD> 05/04/24 1219 [facility] Work Phone: 1(125) 125-397906-22-2024 Progress note Author Víctor Agrawal [facility] May 04, 2024 12:03pm Note Date/Time May 04, 2024 11:5 4am [facility] [address] [place] [address] Pulmonology Progress Note Signed Patient: Aaron Olivarez MR#: [id number] : 1960 Acct:[id number] Age/Sex: 63 / M Adm Date: 4 Loc: 4C Room: [address] [place] [address] Type: ADM IN Attending Dr: Janae Jose [...] Musculoskeletal: No edema Skin: No skin rash ASSESSMENT NURSE PRACTITIONER: Drowsy and confused, does not interact or [...] <Electronically signed by Víctor Agrawal MD> 05/04/24 1209 [facility] Work Phone: 1(567) 460-634106-21-2024 Progress note Author Víctor Agrawal [facility] May 03, 2024 1:57pm Note Date/Time May 03, 2024 1:57 pm [facility] [address] [place] [address] Pulmonology Progress Note Signed Patient: Aaron Olivarez MR#: [id number] : 1960 Acct:[id number] Age/Sex: 63 / M Adm Date: 4 Loc: Room: [address] [place] [address] Type: ADM IN Attending Dr: Janae Jose [...] Musculoskeletal: No edema Skin: No skin rash ASSESSMENT NURSE PRACTITIONER: Drowsy, 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 No focal deficits Objective Intake [...] signed by Víctor Agrawal MD> 05/03/24 1357 [facility] Work Phone: 1(225) 210-560906-21-2024 Progress note Author Janae Jose [facility] May 03, 2024 12:57pm Note Date/Time May 03, 2024 12:5 7pm [facility] [address] [place] [address] Hospitalist Progress Note Signed Patient: Aaron Olivarez MR#: [id number] : 1960 Acct:[id number] Age/Sex: 63 / M Adm Date: 4 Loc: Room: [address] [place] [address] Type: ADM IN Attending Dr: Janae Jose [...] down without significant elevation. Suspecting type II MA from hypoxia. Pending echocardiogram to assess LV function and wall motion. Will obtain twelve-lead EKG. Documented By: Janae Jose MD 05/03/24 1123 Signed By: <Electronically signed by Janae Jose MD> 05/03/24 1257 [facility] Work Phone: 1(231) 341-753006-20-2024 Progress note Author Janae Jose [facility] May 02, 2024 1:49pm Note Date/Time May 02, 2024 1:49 pm [facility] [address] [place] [address] Event Note Signed Patient: Aaron Olivarez MR#: [id number] : 1960 Acct:[id number] Age/Sex: 63 / M Adm Date: 4 Loc: Room: [address] [place] [address] Type: ADM IN Attending Dr: Janae Jose [...] signed by Janae Jose MD> 05/02/24 1349 [facility] Work Phone: [phone] Consult note Author Víctor Agrawal [facility] May 02, 2024 1:47pm Note Date/Time May 02, 2024 1:42 pm [facility] [address] [place] [address] Pulmonology Consult Note Signed Patient: Aaron Olivarez MR#: [id number] : 1960 Acct:[id number] Age/Sex: 63 / M Adm Date: 4 Loc: 4C Room: [address] [place] [address] Type: ADM IN Attending Dr: Janae Jose [...] and history of hypertension was transferred from [place] ED directly into ICU. Apparently, patient was experiencing productive cough with thick yellow phlegm and increased shortness of breath prior to his presentation to [place] ED. Patient was found by familylethargic and difficult to arouse, oxygen saturation was 70% on room air, venousblood gas showed pCO2 of 80 with pH of 7.32. Patient refused BiPAP. Chest CT angiogram reported negative for PE, showed right lower lobe consolidation consistent with pneumonia. [facility] Social History Smoking Status: Heavy tobacco [...] Musculoskeletal: No edema Skin: No skin rash ASSESSMENT NURSE PRACTITIONER: Drowsy, no focal deficits Results - Pulmonology [...] <Electronically signed by Víctor Agrawal MD> 05/02/24 6332 [facility] Work Phone: 1(851) 500-989206-20-2024 History and physical note Author Magdy Douglass [facility] May 02, 2024 7:12am Note Date/Time May 02, 2024 7:11 am [facility] [address] [place] [address] Hospitalist H&P Signed Patient: Aaron Olivarez MR#: [id number] : 1960 Acct:[id number] Age/Sex: 63 / M Adm Date: 4 Loc: Room: [address] [place] [address] Type: ADM IN Attending Dr: Janae Jose MD Copies to: MD Sulaiman Ruggiero, DO Janae Jose MD~ HPI DATE OF EXAMINATION: 05/01/24 CHIEF COMPLAINT: cough, dyspnea, altered mental status HISTORY OF PRESENT ILLNESS: 63 year old man with history of HTN, COPD, tobacco abuse who presented to [place] ED with the above complaints. Per the patient for 2-3 days prior to admission he was having a cough productiveof thick yellow sputum and increasing dyspnea with exertion. On the date of presentation family members went to see the patient and found that he was lethargic and difficult to arouse so he was brought to [place] ED for evaluation. On arrival there pulse [...] negative except as [facility] Social History Smoking Status: Heavy tobacco smoker [...] % (Auto) 7.8 % (.) 05/02/24 04:20 [place] % (Auto) 8.2 % (.) 05/02/24 04:20 Eos % (Auto) 0.0 % (.) 05/02/24 04:20 Baso % (Auto) 0.2 % (.) 05/02/24 04:20 Nucleat RBC Rel Count 0.2 /100 WBC (0-0.5) 05/02/24 04:20 Neut # (Auto) 6.3 x10E3/uL (1.8-7.7) 05/02/24 04:20 Lymph # (Auto) 0.6 x10E3/uL (1.00-4.8) L 05/02/24 04:20 [place] # (Auto) 0.6 x10E3/uL (0.0-0.8) 05/02/24 04:20 [...] signed by Magdy Douglass MD> 05/02/24 0712 [facility] Work Phone: Consult note Author Patricio Galaviz [facility] May 06, 2024 1:01pm Note Date/Time May 06, 2024 1:01 pm [facility] EN[facility] [address] [place] [address] Physiatry (Rehab) Consult Note Signed Patient: Aaron Olivarez MR#: [id number] : 1960 Acct:[id number] Age/Sex: 63 / M Adm Date: 4 Loc: Room: [address] [place] [address] Type: ADM IN Attending Dr: Kiko Maldonado [...] negative unless noted below or in HPI [facility] Medical History Heavy smoker Heroin use H/O ETOH abuse COPD (chronic obstructive pulmonary disease) Social History Smoking Status: Heavy tobacco smoker Social History Comments: Moved from [place] to [place] to live with son, Lamin. Meds Medications [...] chart, including current orders, allied health and splunk consultant notes, labs/imaging and performed [place] elements of exam and I formulated the plan of care and facilitated the medical decision making. I completed a substantive portion of this encounter, the medical decision making portion of this note in its entirety, including Allied health note review, nursing note review, splunk consultant note review, discussion with nursing and case management, and more than 50% of my time was spent on counseling and coordination of care, time spent 60 minutes Documented By: Patricio Galaviz MD 05/06/24 1251 Signed By: <Electronically signed by Patricio Galaviz MD> 05/06/24 1301 [facility] Work Phone: Consult note Author Julito Mosley [facility] Note Date/Time November 18, 2024 4: 27pm [facility] [address] [place] [address] Cardiology Consult Note Signed Patient: Aaron Olivarez MR#: [id number] : 1960 Acct:[id number] Age/Sex: 64 / M Adm Date: 5 Loc: Room: [address] [place] [address] Type: ADM INOo Attending Dr: Yamila Donald [...] negative unless noted below or in HPI [facility] Medical History Heavy smoker Heroin use H/O ETOH abuse COPD (chronic obstructive pulmonary disease) Social History Smoking Status: Unknown if ever smoked Substance Use Type: Marijuana, Heroin and Methamphetamine Social History Comments: Moved from [place] to [place] to live with son, Lamin. Meds Medications [...] x10E3/uL Lymph # (Auto) 1.4 (1.00-4.8) x10E3/uL [place] # (Auto) 0.6 (0.0-0.8) x10E3/uL Eos # [...] @ 70 1000 / 1000 mls/hr IV .[id number] CORBY Rx#: [id number] levETIRAcetam 500 mg In 105 / 105 Dextrose 5 % in Water 100 ml @ 420 mls/hr IV BID CORBY Rx#: [id number] Output: Urine 500 / 500 Other: # [...] signed by Julito Mosley MD> 11/18/24 1627 [facility] Work Phone: Consult note Author Neville Bush [facility] Note Date/Time November 18, 2024 5: 44pm [facility] [address] [place] [address] Neurology Consult Note Signed Patient: Aaron Olivarez MR#: [id number] : 1960 Acct:[id number] Age/Sex: 64 / M Adm Date: 5 Loc: Room: [address] [place] [address] Type: ADM IN Attending Dr: Yamila Donald MD Copies to: DO Sulaiman Mosquera DO Marwan Wassouf, MD~ HPI Consult Date: 11/18/24 Armor Officer: Neville Bush DO [facility] Medical History Heavy smoker Heroin use H/O ETOH abuse COPD (chronic obstructive pulmonary disease) Social History Smoking Status: Unknown if ever smoked Substance Use Type: Marijuana, Heroin and Methamphetamine Social History Comments: Moved from [place] to [place] to live with sonLamin. Meds Medications and [...] Dung Chakraborty M.D.11/17/2024 8:43 AM Dictation Location: [place] [address] Head CTA 11/17/24 08:25 IMPRESSION: No evidence of focal stenosis, aneurysmal dilatation, dissection or occlusion. No evidence of acute traumatic injury. The cervical spine and upper thoracic spine are grossly intact. Impression dictated by: Dung Chakraborty M.D.11/17/2024 8:59 AM Dictation Location: [place] [address] Chest X-Ray 11/17/24 12:57 IMPRESSION: No acute cardiopulmonary pathology. Impression dictated by: Dung Chakraborty M.D.11/17/2024 1:26 PM Dictation Location: [place] [address] Assessment/Plan (1) Seizure: Plan CONSULT REASON: Seizure, [...] <Electronically signed by Neville Bush DO> 11/18/24 7047 [facility] Work Phone: Evaluation note* Diagnosis [...] cute Tobacco abuse acute Uncontrolled hypertension ac [place] [facility] Work Phone: Progress note Author Yamila Donald [facility] Note Date/Time November 19, 2024 3: 10am [facility] [address] [place] [address] Hospitalist Progress Note Signed Patient: Aaron Olivarez MR#: [id number] : 1960 Acct:[id number] Age/Sex: 64 / M Adm Date: 5 Loc: Room: 0Z3205-2 Type: ADM IN Attending Dr: Yamila Donald [...] Lactated Ringers IV 11/18/24 17:34 70 mls/hr .[id number] CORBY Administration Levetiracetam 500 mg/ Dextrose 105 [...] Plan Documented By: Yamila Donald MD 11/18/24 2283 Signed By: <Electronically signed by Yamila Donald MD> 11/19/24 0310 [facility] Work Phone: Proweshr note Author Neville Bush [facility] Note Date/Time November 19, 2024 6: 02pm [facility] [address] [place] [address] Neurology Progress Note Signed Patient: Aaron Olivarez MR#: [id number] : 1960 Acct:[id number] Age/Sex: 64 / M Adm Date: 5 Loc: Room: [address] [place] [address] Type: ADM IN Attending Dr: Yamila Donald [...] <Electronically signed by Neville Bush DO> 11/19/24 6417 [facility] Work Phone: Progress note Author Yamila Donald [facility] Note Date/Time November 20, 2024 3: 02am [facility] [address] [place] [address] Hospitalist Progress Note Signed Patient: Aaron Olivarez MR#: [id number] : 1960 Acct:[id number] Age/Sex: 64 / M Adm Date: 5 Loc: Room: [address] [place] [address] Type: ADM IN Attending Dr: Yamila Donald [...] signed by Yamila Donald MD> 11/20/24 0302 [facility] Work Phone: Progress note Author Yamila Donald [facility] Note Date/Time November 20, 2024 7: 21pm [facility] [address] [place] [address] Hospitalist Progress Note Signed Patient: Aaron Olivarez MR#: [id number] : 1960 Acct:[id number] Age/Sex: 64 / M Adm Date: 5 Loc: Room: [address] [place] [address] Type: ADM IN Attending Dr: Yamila Donald [...] signed by Yamila Donald MD> 11/20/24 1921 [facility] Work Phone: Summary Purpose Family History No [...] section and content) DATE CREATED AUTHOR 05/01/2018 [facility] DATE CREATED AUTHOR AUTHOR'S ORGANIZ ATION 05/04/2018 [facility] DATE CREATED AUTHOR AUTHOR'S ORGANIZ ATION 05/07/2018 [facility] DATE CREATED AUTHOR AUTHOR'S ORGANIZ ATION 05/09/2018 [facility] DATE CREATED AUTHOR AUTHOR'S ORGANIZ ATION 07/04/2018 [facility] DATE CREATED AUTHOR AUTHOR'S ORGANIZ ATION 10/23/2018 [facility] DATE CREATED AUTHOR AUTHOR'S ORGANIZ ATION 11/28/2022 [facility] DATE CREATED AUTHOR AUTHOR'S ORGANIZ ATION 07/24/2024 [facility] DATE CREATED AUTHOR AUTHOR'S ORGANIZ ATION 11/24/2024 [facility] DATE CREATED AUTHOR AUTHOR'S ORGANIZ ATION 12/17/2024 [facility] Care Teams (unrecognized sec tion [...] 2024 End: November 21, 2024 Janie Amaro PRODUCE WRAPPER-C Other Provider Active Sta rt: November 18, 2024 End: November 21, 2024 Alejandra Montenegro APRN-[employer]ISITING TEACHER-C Other Provider Active Start: November 18, 2024 [...] Sta rt: November 18, 2024 Alejandra Montenegro APRN-[employer]ISITING TEACHER-C Other Provider Active Start: November 18, 2024 [...] Sta rt: November 17, 2024 Alejandra Montenegro APRN-[employer]ISITING TEACHER-C Other Provider Active Start: November 17, 2024 [...] BE BASED ON THE PRIMARY CLINICAL RECORDS. [facility] [email or web address] [facility]. provides no warranty or guarantee of the accuracy or completeness of information in this document.
--- NOTE | 2025-01-19 11:16 | ED_ITS ---
HPI HPI - General Adult General Chief complaint: Seizure Stated complaint: SEIZURE Time Seen by Provider: 01/19/25 11:11 History of Present Illness HPI narrative: 64-year-old male presents to the emergency department for a chief complaint of having had a seizure. The patient is initially unable to provide us any history. All the history is initially obtained from the paramedics. They reported that a nephew called because he was having a seizure. There was no description. They checked his blood sugar and it was normal. The patient apparently has history of substance abuse and noncompliance. He has a history of seizures but does not take anything for it. Related Data Home Medications ?Medication ?Instructions ?Recorded ?Confirmed No Known Home Medications 12/20/24 12/20/24 Allergies Allergy/AdvReac Type Severity Reaction Status Date / Time No Known Drug Allergies Allergy Verified 04/01/24 10:45 Opioid HPI Opioid Management Most Recent Opioid Data: Last Pain Scale 4 04/01/24 12:20 04/01/24 Last MAR Pain Assessment 01/19/25 12:27 Ur Phencyclidine Scrn Negative (NEGATIVE) 01/19/25 11:25 0308/07 Review of Systems ROS Narrative Not obtainable, postictal Exam Narrative Exam Narrative: Nurses note and vital signs reviewed and patient is not hypoxic. General: The patient appears in no acute respiratory distress Skin: Warm, dry, no pallor noted. There is no rash noted. Head: Normocephalic, atraumatic Eye: Normal conjunctiva, no drainage Ears, Nose, Mouth, and Throat: oral mucosa is moist. Nares patent. Cardiovascular: Regular Rate and Rhythm, borderline tachycardia Respiratory: Patient is in no distress, no accessory muscle use, lungs are clear to auscultation, no wheezing, rales or rhonchi Back: non-tender GI: No apparent tenderness Musculoskeletal: The patient has no evidence of calf tenderness, no pitting edema, symmetrical pulses noted bilaterally Neurological: He is awake and alert. He is able to tell me his name and that he is in a hospital. He cannot tell me the year Psychiatric: Cannot be assessed Constitutional Vital Signs, click to edit/add: Last Vital Signs Temp 98.9 F 01/19/25 14:42 Pulse 69 01/19/25 16:50 Resp 16 01/19/25 14:42 BP 140/98 H 01/19/25 13:15 Pulse Ox 95 01/19/25 16:50 O2 Del Method Room Air 01/19/25 14:25 O2 Flow Rate 4 01/19/25 13:30 Course Course Hospital Course: During his stay in the emergency department the patient had a witnessed seizure and was given 1 mg of Ativan IV. He did not have further seizure activity. He was able to rest subsequently but then woke up and was trying to get out of bed and walk around the emergency department. He was turning his head from left to right and up and down and clearly has no nuchal rigidity. The patient required another dose of IV Ativan for sedation and he was returned to his bed and was watched closely by the staff in the emergency department. Vital Signs Vital signs: Vital Signs Temperature 100.2 F 01/19/25 11:10 Pulse Rate 96 H 01/19/25 11:10 Respiratory Rate 24 H 01/19/25 11:10 Blood Pressure 228/119 H 01/19/25 11:10 Pulse Oximetry 87 L 01/19/25 11:10 Oxygen Delivery Method Nasal Cannula, Nonrebreather 01/19/25 11:10 Oxygen Delivery Flow Rate 6 01/19/25 11:10 Temperature 98.9 F 01/19/25 14:42 Pulse Rate 69 01/19/25 16:50 Respiratory Rate 16 01/19/25 14:42 Blood Pressure 140/98 H 01/19/25 13:15 Pulse Oximetry 95 01/19/25 16:50 Oxygen Delivery Method Room Air 01/19/25 14:25 Oxygen Delivery Flow Rate 4 01/19/25 13:30 Medical Decision Making MDM Narrative Medical decision making narrative: The patient is noncompliant with his antiseizure medication. He was given IV Keppra as a loading dose here. He also was found to be positive for methamphetamine and buprenorphine and cannabinoids. He was noted to have a temperature of 100.2 degrees upon arrival. I do not suspect infectious etiology and I have no clinical suspicion of meningitis. WBC is not elevated and his neck is supple. He is being observed here in the emergency department. The patient is signed out to Dr. Batista at change of shift Differential Diagnosis Differential Diagnosis: Polysubstance abuse, noncompliance, seizure Medical Records Medical records reviewed: Yes I reviewed the patient's medical records Lab Data Lab results reviewed: Yes I reviewed the patient's lab results Labs: Lab Results 01/19/25 01/19/25 Range/Units 11:19 11:25 WBC 5.9 (4.0-11.0) 10^3/uL RBC 5.48 (4.70-6.10) 10^6/uL Hgb 15.7 (14.0-18.0) g/dL Hct 49.2 (42.0-54.0) % MCV 89.8 (80.0-94.0) fL MCH 28.6 (25.9-34.0) pg MCHC 31.9 (29.9-35.2) g/dL RDW 13.3 (11.0-15.0) % Plt Count 275 (150-450) 10^3/uL MPV 8.9 L (9.5-13.5) fL Neut % (Auto) 84.7 H (43.0-75.0) % Lymph % (Auto) 11.9 L (20.5-60.0) % [place] % (Auto) 2.6 (1.7-12.0) % Eos % (Auto) 0.3 L (0.9-7.0) % Baso % (Auto) 0.3 (0.2-2.0) % Neut # (Auto) 5.0 (1.4-6.5) 10^3/uL Lymph # (Auto) 0.7 L (1.2-3.8) 10^3/uL [place] # (Auto) 0.2 L (0.3-0.8) 10^3/uL Eos # (Auto) 0.0 (0.0-0.7) 10^3/uL Baso # (Auto) 0.0 (0.0-0.1) 10^3/uL Abs Immat Gran (auto) 0.01 (0.00-0.03) 10^3/uL Imm/Tot Granulo (auto) 0.2 (0.0-0.5) % Sodium 139 (136-145) mmol/L Potassium 4.0 (3.5-5.1) mmol/L Chloride 103 (98-107) mmol/L Carbon Dioxide 28.4 (21.0-32.0) mmol/L Anion Gap 11.6 BUN 15.0 (7.0-18.0) mg/dL Creatinine 1.04 (0.70-1.30) mg/dL Est GFR ( Amer) >60 (>=60 mL/min/1.73m^2) Est GFR (Non-Af Amer) >60 (>=60 mL/min/1.73m^2) BUN/Creatinine Ratio 14.4 Glucose 139 H (74-106) mg/dL Calcium 9.4 (8.5-10.1) mg/dL Troponin I High Sens 11.7 (4.0-76.1) pg/mL Urine Color Lt. yellow (YELLOW) Urine Clarity Clear (CLEAR) Urine pH 6.0 (5.0-9.0) Ur Specific [place] 1.025 (1.005-1.025) Urine Protein >=300 A (NEG/TRACE) mg/dL Urine Glucose (UA) 250 A (NEGATIVE) mg/dL Urine Ketones Negative (NEGATIVE) mg/dL Urine Occult Blood Trace-i (NEGATIVE) Urine Nitrite Negative (NEGATIVE) Urine Bilirubin Negative (NEGATIVE) Urine Urobilinogen 0.2 (0.2-1.0) EU/dL Ur Leukocyte Esterase Negative (NEGATIVE) Urine RBC 0-2 (0-2) #/HPF Urine WBC 0-2 A (NONE SEEN) #/HPF Ur Squamous Epith Cells Rare (NONE/RARE) #/LPF Urine Crystals None seen (None Seen) #/HPF Urine Bacteria None seen (NONE SEEN) #/HPF Urine Casts Seen A (NONE SEEN) #/LPF Hyaline Casts Rare Urine Mucus Small A (NONE SEEN) Urine Opiates Screen Negative (NEGATIVE) Ur Buprenorphine Scrn Positive A (NEGATIVE) Ur Oxycodone Screen Negative (NEGATIVE) Urine Methadone Screen Negative (NEGATIVE) Ur Barbiturates Screen Negative (NEGATIVE) U Tricyclic Antidepress Negative (NEGATIVE) Ur Phencyclidine Scrn Negative (NEGATIVE) Ur Amphetamines Screen Negative (NEGATIVE) U Methamphetamines Scrn Positive A (NEGATIVE) U Benzodiazepines Scrn Negative (NEGATIVE) Urine Cocaine Screen Negative (NEGATIVE) U Cannabinoids Screen Positive A (NEGATIVE) Ethanol Quant <3 mg/dL Influenza Type A Ag Negative Influenza Type B Ag Negative SARS-CoV-2 Ag (CV2AG) Negative (NEGATIVE) Imaging Data Chest x-ray, CT brain: Radiologist's impression: Chest x-ray: No consolidation, no pulmonary edema, pleural effusion or pn eumothorax CT brain: No acute intracranial process ECG Data Attestation: I personally reviewed and interpreted this ECG as follows: (EKG on my interpretation shows sinus rhythm with a rate of 96 and no acute) Discharge Plan Discharge Chief Complaint: Seizure Clinical Impression: Seizure, Polysubstance abuse Patient Disposition: Still a Patient Prescriptions / Home Meds: No Action No Known Home Medications Print Language: Frisian Referrals: Physician,Non-Staff, MD [Primary Care Provider] - 1 week
[2025-01-19] MEDS: LORAZEPAM 2 MG/ML VIAL 1 MG IV ×2 (11:40→14:30)
[2025-01-19 11:44] LABS: Basophils Percent Auto 0.3 % (0.2-2.0); Eosinophils Percent Auto 0.3 % (0.9-7.0); Hematocrit 49.2 % (42.0-54.0); Hemoglobin 15.7 g/dL (14.0-18.0); Immature Granulocytes Abs Auto 0.01 10^3/uL (0.00-0.03); Immature Granulocytes Pct Auto 0.2 % (0.0-0.5); Lymphocytes Absolute Auto 0.7 10^3/uL (1.2-3.8); Lymphocytes Percent Auto 11.9 % (20.5-60.0); Mean Corpuscular HGB Conc 31.9 g/dL (29.9-35.2); Mean Corpuscular Hemoglobin 28.6 pg (25.9-34.0); Mean Corpuscular Volume 89.8 fL (80.0-94.0); Mean Platelet Volume 8.9 fL (9.5-13.5); Monocytes Absolute Auto 0.2 10^3/uL (0.3-0.8); Monocytes Percent Auto 2.6 % (1.7-12.0); Neutrophils Percent Auto 84.7 % (43.0-75.0); Platelet Count 275 10^3/uL (150-450); Red Blood Count 5.48 10^6/uL (4.70-6.10); Red Cell Distribution Width 13.3 % (11.0-15.0); White Blood Count 5.9 10^3/uL (4.0-11.0)
[2025-01-19 11:55] LABS: Influenza Virus A Antigen Negative; Influenza Virus B Antigen Negative; Internal Control Within Normal Limits
[2025-01-19 11:56] LABS: Internal Control Within Normal Limits; SARS-CoV-2 Ag NEGATIVE (NEGATIVE)
[2025-01-19 12:06] LABS: Anion Gap 11.6; BUN Creatinine Ratio 14.4; Calcium 9.4 mg/dL (8.5-10.1); Carbon Dioxide 28.4 mmol/L (21.0-32.0); Chloride 103 mmol/L (98-107); Estimated GFR (African America >60 (>=60 mL/min/1.73m^2); Estimated GFR (Non-African Ame >60 (>=60 mL/min/1.73m^2); Glucose 139 mg/dL (74-106); Sodium 139 mmol/L (136-145)
[2025-01-19 12:09] LABS: Bilirubin Urine NEGATIVE (NEGATIVE); Blood Urine TRACE-I (NEGATIVE); Clarity Urine CLEAR (CLEAR); Color Urine LT. YELLOW (YELLOW); Glucose Urine UA 250 mg/dL (NEGATIVE); Ketones Urine NEGATIVE (NEGATIVE); Leukocyte Esterase Urine NEGATIVE (NEGATIVE); Nitrite Urine NEGATIVE (NEGATIVE); Protein Urine >=300 mg/dL (NEG/TRACE); Specific Gravity Urine 1.025 (1.005-1.025); Urobilinogen Urine 0.2 EU/dL (0.2-1.0)
[2025-01-19 12:15] LABS: Troponin I High Sensitivity 11.7 pg/mL (4.0-76.1)
[2025-01-19 12:22] LABS: Cannabinoid Screen Urine POSITIVE (NEGATIVE); Cocaine Screen Urine NEGATIVE (NEGATIVE); Methamphetamines Screen Urine POSITIVE (NEGATIVE); Opiate Screen Urine NEGATIVE (NEGATIVE); Phencyclidine Screen Urine NEGATIVE (NEGATIVE)
[2025-01-19 12:23] LABS: Amphetamine Screen Urine NEGATIVE (NEGATIVE); Barbiturates Screen Urine NEGATIVE (NEGATIVE); Benzodiazepines Screen Urine NEGATIVE (NEGATIVE); Buprenorphine Screen Urine POSITIVE (NEGATIVE); Methadone Screen Urine NEGATIVE (NEGATIVE); Oxycodone Screen Urine NEGATIVE (NEGATIVE); Tricyclic Antidepressant Urine NEGATIVE (NEGATIVE)
[2025-01-19 12:27] LABS: Ethanol <3 mg/dL
[2025-01-19] MEDS: ACETAMINOPHEN 650 MG RECTAL SUPPOSITORY PR (12:27)
[2025-01-19 12:31] LABS: Bacteria Urine NONE SEEN #/HPF (NONE SEEN); Cast Seen? SEEN #/LPF (NONE SEEN); Crystals Seen? None Seen #/HPF (None Seen); Hyaline Casts Urine RARE; Mucus Urine SMALL (NONE SEEN); RBC Urine 0-2 #/HPF (0-2); Squamous Epithelial Cell Urine RARE #/LPF (NONE/RARE); WBC Urine 0-2 #/HPF (NONE SEEN)
[2025-01-19] MEDS: ALBUTEROL SULFATE 2.5 MG/3 ML VIAL NEB IH (13:12)
--- NOTE | 2025-01-19 17:30 | PC.NURSE ---
tried calling son, but no answer. message left.
[2025-01-19] MEDS: LEVETIRACETAM 1,000 MG in 0.9 % SODIUM CHLORIDE 100 ML 440 MG IV (18:20)
== END 2025-01-19 22:58 | disposition home or self-care (01) ==
PROVIDERS: Emergency Provider Emergency Medicine
DX: R56.9 Unspecified convulsions (principal); F19.10 Other psychoactive substance abuse, uncomplicated; Z91.148 Patient's other noncompliance with medication regimen for other reason; E11.9 Type 2 diabetes mellitus without complications; R45.1 Restlessness and agitation
CPT/HCPCS: 36415; 70450; 71045; 80048; 80307; 80320; 81001; 84484; 85025; 87040; 87804; 87811; 93005; 94640; 96365; 96375; 96376; 99285; J1953; J2060

== ENCOUNTER 2025-05-01 00:34 | Emergency (ER) | payer MEDICARE, SELFPAY ==
[2025-05-01] VITALS (41 sets, daily range): BP systolic 130–236; BP diastolic 74–132; PULSE 56–80; TEMP 36.8; O2SAT 92–100; BMI 25.1
[2025-05-01 00:57] LABS: Glucometer 120 mg/dL (74-106)
--- NOTE | 2025-05-01 01:00 | ED_ITS ---
HPI - Seizure General Chief Complaint: Seizure Stated Complaint: SEIZURE Time Seen by Provider: 05/01/25 00:50 Source: patient Mode of arrival: ambulance History of Present Illness HPI Narrative: patient resides at a sober house . Squad called [facility] for seizure. known history of seizure disorder. 2 seizure episodes before Squad arrived. Squad found him seizing on the cough. He stop after he was given Valium. Arrives via Squad post ictal and lethargic with stable vital signs. limited history due to his present mental state. He does follow simple commands like opening his eyes .did comment that his knees hurt Seizure History: Yes Related Data Home Medications ?Medication ?Instructions ?Recorded ?Confirmed No Known Home Medications 12/20/2406/06 Allergies Allergy/AdvReac Type Severity Reaction Status Date / Time No Known Drug Allergies Allergy Verified 04/01/24 10:45 Review of Systems ROS Status of ROS unobtainable due to mental status PFSH PFSH Social History Little interest or pleasure in doing things: not at all Feeling down, depressed, or hopeless: not at all Exam Constitutional Vital Signs, click to edit/add: Last Vital Signs Temp 98.3 F 05/01/25 00:40 Pulse 59 L 05/01/25 05:40 Resp 13 05/01/25 05:40 BP 154/86 H 05/01/25 05:30 Pulse Ox 98 05/01/25 05:40 O2 Del Method Room Air 05/01/25 00:40 Common normals: well nourished Other: lethargic post ictal HENMT Common normals: normocephalic and head/scalp atraumatic Eye Common normals: EOMs intact bilaterally and conjunctivae normal Respiratory Common normals: normal respiratory effort, no retractions and no use of accessory muscles Cardio Common normals: regular rate, regular rhythm, S1 normal heart sound and S2 normal heart sound GI Common normals: Normal to inspection, nondistended, normoactive bowel sounds present, soft to palpation and non-tender Extremity Common normals: normal to inspection Neuro Other: semi lethargic Course Vital Signs Vital signs: Vital Signs Pulse Rate 71 05/01/25 00:38 Respiratory Rate 15 05/01/25 00:38 Pulse Oximetry 92 L 05/01/25 00:38 Temperature 98.3 F 05/01/25 00:40 Pulse Rate 59 L 05/01/25 05:40 Respiratory Rate 13 05/01/25 05:40 Blood Pressure 154/86 H 05/01/25 05:30 Pulse Oximetry 98 05/01/25 05:40 Oxygen Delivery Method Room Air 05/01/25 00:40 MDM - Seizure MDM Narrative Medical decision making narrative: patient with known seizure history. Arrives via Squad after 3 seizures tonight. Arrived post ictal lethargic. Review of old records with comments of noncompliance with seizure medication. labs ordered and patient did fall asleep but started seizing again. Given another dose of Valium and CT brain ordered. Labs WNL with mild elevated of BUN/Creat and ETOH ,4. CT brain pending. Shyam ordered CT brain without acute findings. Patient sedated at this time. Will transfer care to oncoming physician. Anticipate patient should be able to go home but will need to picker and sorter load and unload his seizure prescription medications Lab Data Labs: Lab Results 05/01/25 05/01/25 Range/Units 00:50 00:55 WBC 5.5 (4.0-11.0) 10^3/uL RBC 4.77 (4.70-6.10) 10^6/uL Hgb 13.8 L (14.0-18.0) g/dL Hct 42.3 (42.0-54.0) % MCV 88.7 (80.0-94.0) fL MCH 28.9 (25.9-34.0) pg MCHC 32.6 (29.9-35.2) g/dL RDW 13.7 (11.0-15.0) % Plt Count 249 (150-450) 10^3/uL MPV 9.2 L (9.5-13.5) fL Neut % (Auto) 80.9 H (43.0-75.0) % Lymph % (Auto) 11.3 L (20.5-60.0) % [place] % (Auto) 5.6 (1.7-12.0) % Eos % (Auto) 1.5 (0.9-7.0) % Baso % (Auto) 0.7 (0.2-2.0) % Neut # (Auto) 4.5 (1.4-6.5) 10^3/uL Lymph # (Auto) 0.6 L (1.2-3.8) 10^3/uL [place] # (Auto) 0.3 (0.3-0.8) 10^3/uL Eos # (Auto) 0.1 (0.0-0.7) 10^3/uL Baso # (Auto) 0.0 (0.0-0.1) 10^3/uL Abs Immat Gran (auto) 0.00 (0.00-0.03) 10^3/uL Imm/Tot Granulo (auto) 0.0 (0.0-0.5) % Sodium 141 (136-145) mmol/L Potassium 3.5 (3.5-5.1) mmol/L Chloride 101 (98-107) mmol/L Carbon Dioxide 34.7 H (21.0-32.0) mmol/L Anion Gap 8.8 BUN 24.0 H (7.0-18.0) mg/dL Creatinine 1.34 H (0.70-1.30) mg/dL Est GFR ( Amer) >60 (>=60 mL/min/1.73m^2) Est GFR (Non-Af Amer) 53 L (>=60 mL/min/1.73m^2) BUN/Creatinine Ratio 17.9 Glucose 125 H (74-106) mg/dL Calcium 9.3 (8.5-10.1) mg/dL Ethanol Quant <4 mg/dL POC Glucose 120 H (74-106) mg/dL Discharge Plan Discharge Patient Disposition: Still a Patient
[2025-05-01 01:11] LABS: Basophils Percent Auto 0.7 % (0.2-2.0); Eosinophils Absolute Auto 0.1 10^3/uL (0.0-0.7); Eosinophils Percent Auto 1.5 % (0.9-7.0); Hematocrit 42.3 % (42.0-54.0); Hemoglobin 13.8 g/dL (14.0-18.0); Lymphocytes Absolute Auto 0.6 10^3/uL (1.2-3.8); Lymphocytes Percent Auto 11.3 % (20.5-60.0); Mean Corpuscular HGB Conc 32.6 g/dL (29.9-35.2); Mean Corpuscular Hemoglobin 28.9 pg (25.9-34.0); Mean Corpuscular Volume 88.7 fL (80.0-94.0); Mean Platelet Volume 9.2 fL (9.5-13.5); Monocytes Absolute Auto 0.3 10^3/uL (0.3-0.8); Monocytes Percent Auto 5.6 % (1.7-12.0); Neutrophils Absolute Auto 4.5 10^3/uL (1.4-6.5); Neutrophils Percent Auto 80.9 % (43.0-75.0); Platelet Count 249 10^3/uL (150-450); Red Blood Count 4.77 10^6/uL (4.70-6.10); Red Cell Distribution Width 13.7 % (11.0-15.0); White Blood Count 5.5 10^3/uL (4.0-11.0)
--- NOTE | 2025-05-01 01:15 | ECG_ITS ---
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 Measurements Intervals [place] Rate: 77 P: 82 IN: 162 QRS: 70 QRSD: 88 T: 84 QT: 406 QTc: 438 Interpretive Statements 1100 Sinus rhythm [address] depression 9150 abnormal ECG Compared to ECG 01/19/2025 11:20:55 Indeterminate axis no longer present ST (T wave) deviation still present Electronically Signed On 05-01-2025 17:58:44 EDT by JACKY SIU M.D.
[2025-05-01 01:26] LABS: Anion Gap 8.8; BUN Creatinine Ratio 17.9; Calcium 9.3 mg/dL (8.5-10.1); Carbon Dioxide 34.7 mmol/L (21.0-32.0); Chloride 101 mmol/L (98-107); Estimated GFR (African America >60 (>=60 mL/min/1.73m^2); Estimated GFR (Non-African Ame 53 (>=60 mL/min/1.73m^2); Glucose 125 mg/dL (74-106); Potassium 3.5 mmol/L (3.5-5.1); Sodium 141 mmol/L (136-145)
[2025-05-01 01:38] LABS: Ethanol <4 mg/dL
[2025-05-01] MEDS: 0.9 % SODIUM CHLORIDE 1,000 ML 999 ML IV (01:40)
--- OUTSIDE RECORDS SUMMARY | 2025-05-01 02:00 | XMS_ITS | CCD ---
Author Organization [facility]iniSywa Care Team Providers Care Retail Planning Manager Name Role Phone INDURTI, ELIAN V Unavailable [...] Provider DO Stevie Pichardo Jr Other Provider [phone] MD Danny Mills Other Provider MD Víctor Agrawal Other Provider MARY BLANTON Consulting Unavailable MARY BLANTON B Admitting Unavailable MARY BLANTON Attending Unavailable Sulaiman Feldman DO Primary Care Provider Ragini Carmona DO Emergency Provider Chaz Frey MD Admit Provider Yamila Donald MD Attending Provider [phone] Jalyin Fajardo RN Other Provider Unavailable Wojciech Horowitz MD Other Provider Dimitri NELSON, Julito Elizondo Other Provider Butch NELSON, Emy Other Provider Donna Marcelo Other Provider Unavailable Ubaldo Giles, [place] Other Provider Sivan Francois DO Other Provider Reno Hubbard MD Other Provider Thanh Kenney DO Other Provider Neville Bush DO Other Provider Bella Cano APRN Other Provider [phone] Prem TREVIÑO-CJanie Other Provider Lan REROLLER HAND-SUPERVISOR HISTOLOGY-C, Alejandra Pantoja Other Provider Sulaiman Feldman DO Primary Care Provider Ragini Carmona DO Emergency Provider Chaz Frey MD Admit Provider Yamila Donald MD Attending Provider [phone] Donna Marcelo Other Provider Unavailable Ubaldo Giles, [place] Other Provider Sivan Francois DO Other Provider Reno Hubbard MD Other Provider Thanh Kenney DO Other Provider Neville Bush DO Other Provider Bella Cano APRN Other Provider Prem TREVIÑO-C, Janie Yates Other Provider [phone] Lan REROLLER HAND-SUPERVISOR HISTOLOGY-C, Alejandra Pantoja Other Provider NO PCP, NO [...] Propensity to adverse reactions to drug (disorder) [facility] Repository (1 source) Codeine; Translations: [CODEINE] [...] 11-24-2022 Episodic Other aftercare (1 source) Other fdc (current) drug therapy; Translations: [OTH SYSTEMS INTEGRATION ANALYST CURRENT DRUG THERAPY] Onset: 11-28-2022 Episodic Other [...] gap [Moles/Vol] 13.2 mmol/L Normal 6.0-15.0 e [facility] Comment on above: Performed By: #### C BCNO, BMP, MG #### [facility] [address] [place] [id number] [place] Calcium [Mass/Vol] 9.7 mg/dL Normal 8.6-10.3 [facility] Comment on above: Performed By: #### C BCNO, BMP, MG #### [facility] [address] [place] [id number] [place] Chloride [Moles/Vol] 105 mmol/L Normal 98-107 [facility] Comment on above: Performed By: #### C BCNO, BMP, MG #### [facility] [address] [place] [address] [place] CO2 [Moles/Vol] 25.2 mmol/L Normal 21.0-31.0 [facility] Comment on above: Performed By: #### C BCNO, BMP, MG #### [facility] [address] [place] [address] [place] Creatinine [Mass/Vol] 0.81 mg/dL Normal 0.70-1.30 [facility] Comment on above: Performed By: #### C BCNO, BMP, MG #### [facility] [address] [place] [address] [place] Creatinine Clr Calc Pharmacy 98.46 Normal [facility] Comment on above: Performed By: #### C BCNO, BMP, MG #### [facility] [address] [place] [address] [place] GFR/1.73 sq M.predicted MDRD (S/P/Bld) [Vol rate/Area] mL/min/{1.73_m2} Normal [facility] Comment on above: Performed By: #### C HATTIE, BMP, MG #### [facility] [address] [place] [address] [place] Glucose [Mass/Vol] 103 mg/dL High 70-100 [facility] Comment on above: Result Comment: [facility] Glucose Reference Range is dependent on time and content of last meal. Glucose of more than 200 mg/dL in a nonstressed, ambulatory subject supports the diagnosis of Diabetes Mellitus. ADA recommended reference range Performed By: #### C HATTIE BMP, MG #### [facility] [address] Potassium [Moles/Vol] 3.4 mmol/L Low 3.5-5.1 [facility] Comment on above: Performed By: #### C HATTIE BMP, MG #### [facility] [address] Sodium [Moles/Vol] 140 mmol/L Normal 136-145 [facility] Comment on above: Performed By: #### C HATTIE BMP, MG #### [facility] [address] Urea nitrogen [Mass/Vol] 19 mg/dL Normal 7-25 [facility] Comment on above: Performed By: #### C HATTIE BMP, MG #### [facility] [address] [place] [address] [place] Calcium [Mass/volume] in Ser um or PlasmaOrdered By: Yamila Donald on 11-19-2024 Calcium [Mass/Vol] Calcium [Mass/volume ] in Serum or Plasma 8.6-10.3 [facility] Carbon dioxide, total [Moles /volume] in Serum or PlasmaOrdered By: Yamila Donald on 11-19-2024 CO2 [Moles/Vol] Carbon dioxide, tota l [Moles/volume] in Serum or Plasma 21.0-31.0 [facility] Chloride [Moles/volume] in S andrei or PlasmaOrdered By: Yamila Donald on 11-19-2024 Chloride [Moles/Vol] Chloride [Moles/vol ume] in Serum or Plasma 98-107 [facility] Creatinine [Mass/volume] in Serum or PlasmaOrdered By: Yamila Donald on 11-19-2024 Creatinine [Mass/Vol] Creatinine [Mass/v olume] in Serum or Plasma 0.70-1.30 [facility] Erythrocyte distribution wid th Auto (RBC) [Ratio]Ordered By: Yamila Donald on 11-19-2024 Erythrocyte distribution width (RBC) [Ratio] Erythrocyte distribution width [Ratio] by Automated count 12.0-14.8 [facility] Glucose [Mass/volume] in Ser um or PlasmaOrdered By: Yamila Donald on 11-19-2024 Glucose [Mass/Vol] Glucose [Mass/volume ] in Serum or Plasma High 70-100 [facility] Comment on above: ADA recommended refe rence rangeRandom Glucose Reference Range is dependent on time and content of last meal. Glucose of more than 200 mg/dL in a nonstressed, ambulatory subject supports the diagnosis of Diabetes Mellitus. Hematocrit Auto (Bld) [Volum e fraction]Ordered By: Yamila Donald on 11-19-2024 Hematocrit (Bld) [Volume fraction] Hematocrit [Volume Fraction] of Blood by Automated count 38.8-50.0 [facility] Hemoglobin [Mass/volume] in BloodOrdered By: Yamila Donald on 11-19-2024 Hemoglobin (Bld) [Mass/Vol] Hemoglobin [Mass/volume] in Blood 13.0-17.0 [facility] Hemogram CBC Without Diffon 11-19-2024 Erythrocyte distribution width (RBC) [Ratio] 13.7 % Normal 12.0-14.8 [facility] Comment on above: Performed By: #### C BCNO, BMP, MG #### [address] Hematocrit (Bld) [Volume fraction] 45.8 % Normal 38.8-50.0 [facility] Comment on above: Performed By: #### C BCNO, BMP, MG #### [address] Hemoglobin (Bld) [Mass/Vol] 15.4 g/dL Normal 13.0-17.0 [facility] Comment on above: Performed By: #### C BCNO, BMP, MG #### [address] MCH (RBC) [Entitic mass] 29.0 pg Normal 27.5-35.2 [facility] Comment on above: Performed By: #### C BCNO, BMP, MG #### [address] MCV (RBC) [Entitic vol] 86.4 fL Normal 83.5-101 [facility] Comment on above: Performed By: #### C BCNO, BMP, MG #### [address] Mean Corpuscular HGB Conc 33.5 g/dL Normal 32.5-35.6 [facility] Comment on above: Performed By: #### C BCNO, BMP, MG #### [address] Platelet mean volume (Bld) [Entitic vol] 7.9 fL Normal 6.6-10.1 [facility] Comment on above: Result Comment: PERF ORMED BY: [place] [address] PATHOLOGIST ROASTER SUPERVISOR VÍCTOR LUCERO M.D. Performed By: #### C BCNO, BMP, MG #### [address] Platelets (Bld) [#/Vol] 203 10*3/uL Normal 150-450 [facility] Comment on above: Performed By: #### C BCNO, BMP, MG #### [address] RBC (Bld) [#/Vol] 5.31 10*6/uL Normal 3.90-5.60 [facility] Comment on above: Performed By: #### C BCNO, BMP, MG #### [facility] [address] WBC (Bld) [#/Vol] 8.2 10*3/uL Normal 4.1-10.5 [facility] Comment on above: Performed By: #### C BCNO, BMP, MG #### [facility] [address] Leukocytes [#/volume] correc srinivas for nucleated erythrocytes in Blood by Automated counOrdered By: Yamila Donald on 11-19-2024 WBC corrected for nucl RBC Auto (Bld) [#/Vol] Leukocytes [#/volume] corrected for nucleated erythrocytes in Blood by Automated coun 4.1-10.5 [facility] MCH Auto (RBC) [Entitic mass ]Ordered By: Yamila Donald on 11-19-2024 MCH (RBC) [Entitic mass] MCH [Entitic mass] by Automated count 27.5-35.2 [facility] MCHC Auto (RBC) [Mass/Vol]Or dered By: Yamila Donald on 11-19-2024 MCHC (RBC) [Mass/Vol] MCHC [Mass/volume] by Automated count 32.5-35.6 [facility] MCV Auto (RBC) [Entitic vol] Ordered By: Yamila Donald on 11-19-2024 MCV (RBC) [Entitic vol] MCV [Entitic volume] by Automated count 83.5-101 [facility] MR head/brain wo conon 11-19 MR head/brain wo con [facility] [place] [address] MRI Report Signed Patient: Aaron Olivarez MR#: [id number] 00 : 1960 Acct:[id number] Age/Sex: 64 / M ADM Date: 11/18/24 Loc: Room: [address] [place] [address] Type: ADM IN Attending Dr: Yamila Donald [...] Regino Mckinley M.D.11/19/2024 4:50 PM Dictation Location: [place] [address] Transcribed By: [facility] 11/19/24 1650 Dictated By: Regino Mckinley MD 11/19/24 1644 Signed By: 11/19/24 1650 Normal [facility] Magnesiumon 11-19-2024 Magnesium [Mass/Vol] 1.7 mg/dL Low 1.9-2.7 [facility] Comment on above: Result Comment: PERF ORMED BY: [place] [address] PATHOLOGIST ROASTER SUPERVISOR VÍCTOR LUCERO M.D. Performed By: #### C BCNO, BMP, MG #### [address] Magnesium [Mass/volume] in S andrei or PlasmaOrdered By: Yamila Donald on 11-19-2024 Magnesium [Mass/Vol] Magnesium [Mass/vol ume] in Serum or Plasma Low 1.9-2.7 [facility] Magnetic resonance imaging r eportOrdered By: Regino Mckinley on 11-19-2024 Study report [facility] Main [place] [address] [place], [place] [id number] MRI Report Signed Patient: Aaron Olivarez MR#: [id number] : 1960 Acct:[id number] Age/Sex: 64 / M ADM Date: 5 Loc: Room: [address] [place] [address] Type: ADM IN Attending Dr: Yamila Donald [...] Regino Mckinley M.D.11/19/2024 4:50 PM Dictation Location: [place] [address] Transcribed By: [facility] 11/19/24 165 Dictated By: Regino Mckinley MD 11/19/24 1640 Signed By: 11/19/24 1650 [facility] Work Phone: No Panel InformationOrdered By: Yamila Donald on 11-19-2024 Estimated GFR (CKD-EPI) > 60.0 mL/Min [facility] Creatinine Clearance (Chem 98.46 [facility] Platelet mean volume Auto (B ld) [Entitic vol]Ordered By: Yamila Donald on 11-19-2024 Platelet mean volume (Bld) [Entitic vol] Platelet mean volume [Entitic volume] in Blood by Automated count 6.6-10.1 [facility] Platelets Auto (Bld) [#/Vol] Ordered By: Yamila Donald on 11-19-2024 Platelets (Bld) [#/Vol] Platelets [#/volume] in Blood by Automated count 150-450 [facility] Potassium [Moles/volume] in Serum or PlasmaOrdered By: Yamila Donald on 11-19-2024 Potassium [Moles/Vol] Potassium [Moles/v olume] in Serum or Plasma Low 3.5-5.1 [facility] RBC Auto (Bld) [#/Vol]Ordere d By: Yamila Donald on 11-19-2024 RBC (Bld) [#/Vol] Erythrocytes [#/volu me] in Blood by Automated count 3.90-5.60 [facility] Serum or plasma anion gap de terminationOrdered By: Yamila Donald on 11-19-2024 Anion gap [Moles/Vol] Serum or plasma an ion gap determination 6.0-15.0 [facility] Sodium [Moles/volume] in Ser um or PlasmaOrdered By: Yamila Donald on 11-19-2024 Sodium [Moles/Vol] Sodium [Moles/volume ] in Serum or Plasma 136-145 [facility] Urea nitrogen [Mass/volume] in Serum or PlasmaOrdered By: Yamila Wassoeduar on 11-19-2024 Urea nitrogen [Mass/Vol] Urea nitrogen [Mass/volume] in Serum or Plasma 7-25 [facility] Alanine aminotransferase [En zymatic activity/volume] in Serum or PlasmaOrdered By: Chaz Frey on 11-18-2024 ALT [Catalytic activity/Vol] Alanine aminotransferase [Enzymatic activity/volume] in Serum or Plasma 7-52 [facility] Albumin [Mass/volume] in Ser um or Plasma by Bromocresol green (BCG) dye binding methoOrdered By: Chaz Frey on 11-18-2024 Albumin BCG dye [Mass/Vol] Albumin [Mass/volume] in Serum or Plasma by Bromocresol green (BCG) dye binding metho 3.5-5.7 [facility] Alkaline phosphatase [Enzyma tic activity/volume] in Serum or PlasmaOrdered By: Chaz Frey on 11-18-2024 ALP [Catalytic activity/Vol] Alkaline phosphatase [Enzymatic activity/volume] in Serum or Plasma 34-104 [facility] Aspartate aminotransferase [ Enzymatic activity/volume] in Serum or PlasmaOrdered By: Chaz Frey on 11-18-2024 AST [Catalytic activity/Vol] Aspartate aminotransferase [Enzymatic activity/volume] in Serum or Plasma 13-39 [facility] Basophils Auto (Bld) [#/Vol] Ordered By: Chaz Frey on 11-18-2024 Basophils (Bld) [#/Vol] Automated basophil count 0.0-0.2 [facility] Basophils/100 WBC Auto (Bld) Ordered By: Chaz Frey on 11-18-2024 Basophils/100 WBC (Bld) Automated basophil % . [facility] Bilirubin.total [Mass/volume ] in Serum or PlasmaOrdered By: Chaz Frey on 11-18-2024 Bilirubin [Mass/Vol] Bilirubin.total [Mass/volume] in Serum or Plasma High 0.3-1.0 [facility] Calcium [Mass/volume] in Ser um or PlasmaOrdered By: Chaz Frey on 11-18-2024 Calcium [Mass/Vol] Calcium [Mass/volume ] in Serum or Plasma 8.6-10.3 [facility] Carbon dioxide, total [Moles /volume] in Serum or PlasmaOrdered By: Chaz Fery on 11-18-2024 CO2 [Moles/Vol] Carbon dioxide, tota l [Moles/volume] in Serum or Plasma High 21.0-31.0 [facility] Chloride [Moles/volume] in S andrei or PlasmaOrdered By: Chaz Frey on 11-18-2024 Chloride [Moles/Vol] Chloride [Moles/vol ume] in Serum or Plasma 98-107 [facility] Complete Blood Count Auto Di ffon 11-18-2024 Basophils (Bld) [#/Vol] 0.0 10*3/uL Normal 0.0-0.2 [facility] Comment on above: Result Comment: PERF ORMED BY: [place] [address] PATHOLOGIST ROASTER SUPERVISOR VÍCTOR LUCERO M.D. Performed By: #### C BC, PT, PTT, CK, HS TROP, CMP, PRL #### [address] Basophils/100 WBC (Bld) 0.6 % Normal . [facility] Comment on above: Performed By: #### C BC, PT, PTT, CK, HS TROP, CMP, PRL #### [address] Eosinophils (Bld) [#/Vol] 0.0 10*3/uL Normal 0.0-0.45 [facility] Comment on above: Performed By: #### C BC, PT, PTT, CK, HS TROP, CMP, PRL #### [address] Eosinophils/100 WBC (Bld) 0.1 % Normal . [facility] Comment on above: Performed By: #### C BC, PT, PTT, CK, HS TROP, CMP, PRL #### [address] Erythrocyte distribution width (RBC) [Ratio] 13.3 % Normal 12.0-14.8 [facility] Comment on above: Performed By: #### C BC, PT, PTT, CK, HS TROP, CMP, PRL #### [address] Hematocrit (Bld) [Volume fraction] 43.0 % Normal 38.8-50.0 [facility] Comment on above: Performed By: #### C BC, PT, PTT, CK, HS TROP, CMP, PRL #### [address] Hemoglobin (Bld) [Mass/Vol] 14.6 g/dL Normal 13.0-17.0 [facility] Comment on above: Performed By: #### C BC, PT, PTT, CK, HS TROP, CMP, PRL #### [address] Lymphocytes (Bld) [#/Vol] 1.4 10*3/uL Normal 1.00-4.8 [facility] Comment on above: Performed By: #### C BC, PT, PTT, CK, HS TROP, CMP, PRL #### [address] Lymphocytes/100 WBC (Bld) 20.9 % Normal . [facility] Comment on above: Performed By: #### C BC, PT, PTT, CK, HS TROP, CMP, PRL #### [address] MCH (RBC) [Entitic mass] 29.1 pg Normal 27.5-35.2 [facility] Comment on above: Performed By: #### C BC, PT, PTT, CK, HS TROP, CMP, PRL #### [address] MCV (RBC) [Entitic vol] 85.8 fL Normal 83.5-101 [facility] Comment on above: Performed By: #### C BC, PT, PTT, CK, HS TROP, CMP, PRL #### [address] Mean Corpuscular HGB Conc 33.9 g/dL Normal 32.5-35.6 [facility] Comment on above: Performed By: #### C BC, PT, PTT, CK, HS TROP, CMP, PRL #### [address] Monocytes (Bld) [#/Vol] 0.6 10*3/uL Normal 0.0-0.8 [facility] Comment on above: Performed By: #### C BC, PT, PTT, CK, HS TROP, CMP, PRL #### [address] Monocytes/100 WBC (Bld) 8.5 % Normal . [facility] Comment on above: Performed By: #### C BC, PT, PTT, CK, HS TROP, CMP, PRL #### [address] Neutrophils (Bld) [#/Vol] 4.7 10*3/uL Normal 1.8-7.7 [facility] Comment on above: Performed By: #### C BC, PT, PTT, CK, HS TROP, CMP, PRL #### [address] Neutrophils/100 WBC (Bld) 69.9 % Normal . [facility] Comment on above: Performed By: #### C BC, PT, PTT, CK, HS TROP, CMP, PRL #### [address] NRBC% 0.1 /100{WBC} Normal 0-0.5 [facility] Comment on above: Performed By: #### C BC, PT, PTT, CK, HS TROP, CMP, PRL #### [address] Platelet mean volume (Bld) [Entitic vol] 7.6 fL Normal 6.6-10.1 [facility] Comment on above: Performed By: #### C BC, PT, PTT, CK, HS TROP, CMP, PRL #### [place] [address] [place] Platelets (Bld) [#/Vol] 216 10*3/uL Normal 150-450 [facility] Comment on above: Performed By: #### C BC, PT, PTT, CK, HS TROP, CMP, PRL #### [place] [address] [place] RBC (Bld) [#/Vol] 5.01 10*6/uL Normal 3.90-5.60 [facility] Comment on above: Performed By: #### C BC, PT, PTT, CK, HS TROP, CMP, PRL #### [address] WBC (Bld) [#/Vol] 6.7 10*3/uL Normal 4.1-10.5 [facility] Comment on above: Performed By: #### C BC, PT, PTT, CK, HS TROP, CMP, PRL #### [address] Comprehensive Metabolic Pane wilner 11-18-2024 Albumin [Mass/Vol] 3.9 g/dL Normal 3.5-5.7 [facility] Comment on above: Performed By: #### C BC, PT, PTT, CK, HS TROP, CMP, PRL #### [address] Albumin/Globulin [Mass ratio] 1.6 {ratio} Normal [facility] Comment on above: Performed By: #### C BC, PT, PTT, CK, HS TROP, CMP, PRL #### [address] ALP [Catalytic activity/Vol] 93 U/L Normal 34-104 [facility] Comment on above: Performed By: #### C BC, PT, PTT, CK, HS TROP, CMP, PRL #### [address] ALT [Catalytic activity/Vol] 10 U/L Normal 7-52 [facility] Comment on above: Performed By: #### C BC, PT, PTT, CK, HS TROP, CMP, PRL #### [address] Anion gap [Moles/Vol] 9.7 mmol/L Normal 6.0-15.0 [facility] Comment on above: Performed By: #### C BC, PT, PTT, CK, HS TROP, CMP, PRL #### [place] [address] AST [Catalytic activity/Vol] 16 U/L Normal 13-39 [facility] Comment on above: Performed By: #### C BC, PT, PTT, CK, HS TROP, CMP, PRL #### [address] Bilirubin [Mass/Vol] 1.2 mg/dL High 0.3-1.0 [facility] Comment on above: Performed By: #### C BC, PT, PTT, CK, HS TROP, CMP, PRL #### [address] Calcium [Mass/Vol] 9.4 mg/dL Normal 8.6-10.3 [facility] Comment on above: Performed By: #### C BC, PT, PTT, CK, HS TROP, CMP, PRL #### [address] Chloride [Moles/Vol] 105 mmol/L Normal 98-107 [facility] Comment on above: Performed By: #### C BC, PT, PTT, CK, HS TROP, CMP, PRL #### [address] CO2 [Moles/Vol] 31.4 mmol/L High 21.0-31.0 [facility] Comment on above: Performed By: #### C BC, PT, PTT, CK, HS TROP, CMP, PRL #### [address] Creatinine [Mass/Vol] 1.10 mg/dL Normal 0.70-1.30 [facility] Comment on above: Performed By: #### C BC, PT, PTT, CK, HS TROP, CMP, PRL #### [address] Creatinine Clr Calc Pharmacy 72.51 Normal [facility] Comment on above: Performed By: #### C BC, PT, PTT, CK, HS TROP, CMP, PRL #### [place] [address] [place] GFR/1.73 sq M.predicted MDRD (S/P/Bld) [Vol rate/Area] mL/min/{1.73_m2} Normal [facility] Comment on above: Performed By: #### C BC, PT, PTT, CK, HS TROP, CMP, PRL #### [address] Globulin (S) [Mass/Vol] 2.4 g/dL Normal [facility] Comment on above: Performed By: #### C BC, PT, PTT, CK, HS TROP, CMP, PRL #### [address] Glucose [Mass/Vol] 113 mg/dL High 70-100 [facility] Comment on above: Result Comment: [facility] Glucose Reference Range is dependent on time and content of last meal. Glucose of more than 200 mg/dL in a nonstressed, ambulatory subject supports the diagnosis of Diabetes Mellitus. ADA recommended reference range Performed By: #### C BC, PT, PTT, CK, HS TROP, CMP, PRL #### [address] Potassium [Moles/Vol] 4.1 mmol/L Normal 3.5-5.1 [facility] Comment on above: Performed By: #### C BC, PT, PTT, CK, HS TROP, CMP, PRL #### [address] Protein [Mass/Vol] 6.3 g/dL Low 6.4-8.9 [facility] Comment on above: Performed By: #### C BC, PT, PTT, CK, HS TROP, CMP, PRL #### [address] Sodium [Moles/Vol] 142 mmol/L Normal 136-145 [facility] Comment on above: Performed By: #### C BC, PT, PTT, CK, HS TROP, CMP, PRL #### [address] Urea nitrogen [Mass/Vol] 22 mg/dL Normal 7-25 [facility] Comment on above: Performed By: #### C BC, PT, PTT, CK, HS TROP, CMP, PRL #### [facility] [address] [place] [id number] [facility] Creatinine [Mass/volume] in Serum or PlasmaOrdered By: Chaz Frey on 11-18-2024 Creatinine [Mass/Vol] Creatinine [Mass/v olume] in Serum or Plasma 0.70-1.30 [facility] echo transthoracicon [facility] echo transthoracic [facility] Main [place] [address] [place] [address] Echocardiogram Signed Patient: Aaron Olivarez MR#: [id number] 00 : 1960 Acct:[id number] Age/Sex: 64 / M ADM Date: 11/18/24 Loc: Room: [address] [place] [address] Type: ADM IN Attending Dr: Yamila Donald MD Ordering Provider: Chaz Frey MD Date of Service: 11/17/2404/06/1256 [facility] echo transthoracic: TIA Copies to: MD Chaz [...] Katherin Chisholm MD 11/18/24 1643 Normal [facility] Eosinophils Auto (Bld) [#/Vo l]Ordered By: Chaz Frey on 11-18-2024 Eosinophils (Bld) [#/Vol] Automated eosinophil count 0.0-0.45 [facility] Eosinophils/100 WBC Auto (Bl d)Ordered By: Chaz Frey on 11-18-2024 Eosinophils/100 WBC (Bld) Automated eosinophil % . [facility] Erythrocyte distribution wid th Auto (RBC) [Ratio]Ordered By: Chaz Frey on 11-18-2024 Erythrocyte distribution width (RBC) [Ratio] Erythrocyte distribution width [Ratio] by Automated count 12.0-14.8 [facility] Globulin Calc (S) [Mass/Vol] Ordered By: Chaz Frey on 11-18-2024 Globulin (S) [Mass/Vol] Serum globulin measurement by calculation (mass/volume) [facility] Glucose [Mass/volume] in Ser um or PlasmaOrdered By: Chaz Frey on 11-18-2024 Glucose [Mass/Vol] Glucose [Mass/volume ] in Serum or Plasma High 70-100 [facility] Comment on above: ADA recommended refe rence rangeRandom Glucose Reference Range is dependent on time and content of last meal. Glucose of more than 200 mg/dL in a nonstressed, ambulatory subject supports the diagnosis of Diabetes Mellitus. Hematocrit Auto (Bld) [Volum e fraction]Ordered By: Chaz Frey on 11-18-2024 Hematocrit (Bld) [Volume fraction] Hematocrit [Volume Fraction] of Blood by Automated count 38.8-50.0 [facility] Hemoglobin [Mass/volume] in BloodOrdered By: Chaz Frey on 11-18-2024 Hemoglobin (Bld) [Mass/Vol] Hemoglobin [Mass/volume] in Blood 13.0-17.0 [facility] Leukocytes [#/volume] correc srinivas for nucleated erythrocytes in Blood by Automated counOrdered By: Chaz Frey on 11-18-2024 WBC corrected for nucl RBC Auto (Bld) [#/Vol] Leukocytes [#/volume] corrected for nucleated erythrocytes in Blood by Automated coun 4.1-10.5 [facility] Lymphocytes Auto (Bld) [#/Vo l]Ordered By: Chaz Frey on 11-18-2024 Lymphocytes (Bld) [#/Vol] Lymphocytes [#/volume] in Blood by Automated count 1.00-4.8 [facility] Lymphocytes/100 WBC Auto (Bl d)Ordered By: Chaz Frey on 11-18-2024 Lymphocytes/100 WBC (Bld) Lymphocytes/100 leukocytes in Blood by Automated count . [facility] MCH Auto (RBC) [Entitic mass ]Ordered By: Chaz Frey on 11-18-2024 MCH (RBC) [Entitic mass] MCH [Entitic mass] by Automated count 27.5-35.2 [facility] MCHC Auto (RBC) [Mass/Vol]Or dered By: Chaz Frey on 11-18-2024 MCHC (RBC) [Mass/Vol] MCHC [Mass/volume] by Automated count 32.5-35.6 [facility] MCV Auto (RBC) [Entitic vol] Ordered By: Chaz Frey on 11-18-2024 MCV (RBC) [Entitic vol] MCV [Entitic volume] by Automated count 83.5-101 [facility] Monocytes Auto (Bld) [#/Vol] Ordered By: Chaz Frey on 11-18-2024 Monocytes (Bld) [#/Vol] Automated blood monocyte count 0.0-0.8 [facility] Monocytes/100 WBC Auto (Bld) Ordered By: Chaz Frey on 11-18-2024 Monocytes/100 WBC (Bld) Automated monocyte % . [facility] Neutrophils Auto (Bld) [#/Vo l]Ordered By: Chaz Frey on 11-18-2024 Neutrophils (Bld) [#/Vol] Neutrophils [#/volume] in Blood by Automated count 1.8-7.7 [facility] Neutrophils/100 WBC Auto (Bl d)Ordered By: Chaz Frey on 11-18-2024 Neutrophils/100 WBC (Bld) Automated neutrophil % . [facility] No Panel InformationOrdered By: Chaz Frey on 11-18-2024 Estimated GFR (CKD-EPI) > 60.0 mL/Min [facility] Creatinine Clearance (Chem 72.51 [facility] Nucleated erythrocytes [Pres ence] in Blood by Automated countOrdered By: Chaz Frey on 11-18-2024 Nucleated RBC Auto Ql (Bld) Nucleated erythrocytes [Presence] in Blood by Automated count 0-0.5 [facility] Platelet mean volume Auto (B ld) [Entitic vol]Ordered By: Chaz Frey on 11-18-2024 Platelet mean volume (Bld) [Entitic vol] Platelet mean volume [Entitic volume] in Blood by Automated count 6.6-10.1 [facility] Platelets Auto (Bld) [#/Vol] Ordered By: Chaz Frey on 11-18-2024 Platelets (Bld) [#/Vol] Platelets [#/volume] in Blood by Automated count 150-450 [facility] Potassium [Moles/volume] in Serum or PlasmaOrdered By: Chaz Frey on 11-18-2024 Potassium [Moles/Vol] Potassium [Moles/v olume] in Serum or Plasma 3.5-5.1 [facility] Prolactinon 11-18-2024 Prolactin 16.14 ng/mL High 2.64-13.13 [facility] Comment on above: Result Comment: PERF ORMED BY: [place] [address] PATHOLOGIST [employer]PER[employer] VÍCTOR LUCERO M.D. Performed By: #### C BC, PT, PTT, CK, HS TROP, CMP, PRL #### [facility] [address] Prolactin [Mass/volume] in S andrei or PlasmaOrdered By: Chaz Frey on 11-18-2024 Prolactin [Mass/Vol] Prolactin [Mass/vol ume] in Serum or Plasma High 2.64-13.13 [facility] Protein [Mass/volume] in Ser um or PlasmaOrdered By: Chaz Frey on 11-18-2024 Protein [Mass/Vol] Protein [Mass/volume ] in Serum or Plasma Low 6.4-8.9 [facility] RBC Auto (Bld) [#/Vol]Ordere d By: Chaz Frey on 11-18-2024 RBC (Bld) [#/Vol] Erythrocytes [#/volu me] in Blood by Automated count 3.90-5.60 [facility] Serum or plasma albumin/glob ulin mass ratioOrdered By: Chaz Frey on 11-18-2024 Albumin/Globulin [Mass ratio] Serum or plasma albumin/globulin mass ratio [facility] Serum or plasma anion gap de terminationOrdered By: Chaz Frey on 11-18-2024 Anion gap [Moles/Vol] Serum or plasma an ion gap determination 6.0-15.0 [facility] Sodium [Moles/volume] in Ser um or PlasmaOrdered By: Chaz Frey on 11-18-2024 Sodium [Moles/Vol] Sodium [Moles/volume ] in Serum or Plasma 136-145 [facility] Troponin I High Sensitivityo n 11-18-2024 Troponin I High Sensitivity 26.6 pg/mL High 0.0-20.0 [facility] Comment on above: Result Comment: PERF ORMED BY: [facility] [address] [place] [id number] PATHOLOGIST [employer] SUPER[employer] VÍCTOR LUCERO M.D. Performed By: #### C BC, PT, PTT, CK, HS TROP, CMP, PRL #### [facility] [address] Troponin I.cardiac [Mass/vol ume] in Serum or Plasma by Detection limit <= 0.01 ng/Ordered By: Chaz Frey on 11-18-2024 Troponin I.cardiac DL <= 0.01 ng/mL [Mass/Vol] Troponin I.cardiac [Mass/volume] in Serum or Plasma by Detection limit <= 0.01 ng/ High 0.0-20.0 [facility] Urea nitrogen [Mass/volume] in Serum or PlasmaOrdered By: Chaz Frey on 11-18-2024 Urea nitrogen [Mass/Vol] Urea nitrogen [Mass/volume] in Serum or Plasma 7-25 [facility] WBC Auto (Bld) [#/Vol]Ordere d By: Chaz Frey on 11-18-2024 WBC (Bld) [#/Vol] Leukocytes [#/volume ] in Blood by Automated count 4.1-10.5 [facility] Amphetamine Screen Ql (U)Ord ered By: Ragini Carmona on 11-17-2024 Amphetamines Ql (U) Amphetamines screen High Negativ e [facility] Amphetamine cutoff [Mass/vol ume] in Urine for Confirmatory methodOrdered By: Chaz Frey on 11-17-2024 Amphetamine cutoff Confirm (U) [Mass/Vol] Amphetamine cutoff [Mass/volume] in Urine for Confirmatory method Ysebdy=[id number] [facility] Amphetamine+Methamphetamine [Presence] in UrineOrdered By: Chaz Frey on 11-17-2024 Amphetamine+Methamphe tamine Ql (U) Amphetamine+Methamphetami ne [Presence] in Urine Abnormal [id number]=[id number] [facility] Comment on above: Amphetamine test inc ludes Amphetamine and Methamphetamine. Amphetamines [Presence] in U rineOrdered By: Chaz Frey on 11-17-2024 Amphetamines Ql (U) Amphetamines [Presen ce] in Urine Abnormal . [facility] Amphetamines [Presence] in U rine by Screen methodOrdered By: Chaz Frey on 11-17-2024 Amphetamines Screen Ql (U) Amphetamines [Presence] in Urine by Screen method [id number]=[id number] [facility] Comment on above: Amphetamine test inc ludes Amphetamine and Methamphetamine. Appearance of UrineOrdered B y: Ragini Carmona on 11-17-2024 Appearance (U) Urine appearance Clear [facility] Bacteria [Presence] in Urine by AutomatedOrdered By: Ragini Carmona on 11-17-2024 Bacteria Auto Ql (U) Bacteria [Presence] in Urine by Automated None Seen [facility] Barbiturates [Presence] in U rine by Screen methodOrdered By: Ragini Carmona on 11-17-2024 Barbiturates Screen Ql (U) Barbiturates [Presence] in Urine by Screen method Bctomu=[id number] [facility] Benzodiazepines Screen Ql (U )Ordered By: Ragini Carmona on 11-17-2024 Benzodiazepines Ql (U) Benzodiazepines [Presence] in Urine by Screen method High Negative [facility] Benzodiazepines [Presence] i n UrineOrdered By: Chaz Frey on 11-17-2024 Benzodiazepines Ql (U) Benzodiazepines [Presence] in Urine Dftqgl=749 [facility] Benzoylecgonine [Presence] i n Urine by Screen methodOrdered By: Ragini Carmona on 11-17-2024 Benzoylecgonine Screen Ql (U) Benzoylecgonine [Presence] in Urine by Screen method Negative [facility] Bilirubin Test strip Ql (U)O rdered By: Ragiin Carmona on 11-17-2024 Bilirubin Ql (U) Bilirubin.total [Presence] in Urine by Test strip Negative [facility] CT angio neckon 11-17-2024 CT angio neck [facility] [place] [address] CT Scan Report Signed Patient: Aaron Olivarez MR#: [id number] 00 : 1960 Acct:[id number] Age/Sex: 64 / M ADM Date: 11/17/24 Loc: ER Room: Type: PRE ER Attending Dr: Copies to: Ragini Carmona DO Ordering Provider: Ragini M Tupa, DO Date of Service: 11/17/24 CT/CT angio head: cva ([id number]) CT/CT angio neck: cva CT angio head, [...] Dung Chakraborty M.D.11/17/2024 8:59 AM Dictation Location: [place] [address] Transcribed By: [facility] 11/17/24 0859 Dictated By: Dung Chakraborty II, MD 11/17/24 0852 Signed By: 11/17/24 0859 Normal [facility] CT head stroke alert wo cono n 11-17-2024 CT head stroke alert wo con [facility] Main [place] [address] [place] [address] CT Scan Report Signed Patient: Aaron Olivarez MR#: [id number] 00 : 1960 Acct:[id number] Age/Sex: 64 / M ADM Date: 11/17/24 [...] Dung Chakraborty M.D.11/17/2024 8:43 AM Dictation Location: [place] [address] Transcribed By: YNES 11/17/24 0843 Dictated By: Dung Chakraborty II, MD 11/17/24 0837 Signed By: 11/17/24 0843 Normal [facility] Cannabinoids [Mass/volume] i n Urine by Confirmatory methodOrdered By: Chaz Frey on 11-17-2024 Cannabinoids Confirm (U) [Mass/Vol] Cannabinoids [Mass/volume] in Urine by Confirmatory method Cutoff=50 [facility] Cannabinoids [Presence] in U rine by Screen methodOrdered By: Ragini Carmona on 11-17-2024 Cannabinoids Screen Ql (U) Cannabinoids [Presence] in Urine by Screen method Cutoff=50 [facility] Comment on above: These are unconfirme d results and should not be used for legal purposes. Drug Cut-Off Concentration: AMPH 1000 ng/mL BHASKAR 200 ng/mL RIKKI 200 ng/mL COCM 300 ng/mL OP 300 ng/mL PCP 25 ng/mL THC 20 ng/mL Color Auto (U)Ordered By: Noe Carmona on 11-17-2024 Color (U) Color of Urine by Auto Yellow [facility] Complete Blood Count Auto Di ffon 11-17-2024 Basophils (Bld) [#/Vol] 0.0 10*3/uL Normal 0.0-0.2 [facility] Comment on above: Result Comment: PERF ORMED BY: [place] [address] PATHOLOGIST [employer]PER[employer] VÍCTOR LUCERO M.D. Performed By: #### C BC, PT, PTT, CK, HS TROP, CMP, PRL #### [address] Basophils/100 WBC (Bld) 0.4 % Normal . [facility] Comment on above: Performed By: #### C BC, PT, PTT, CK, HS TROP, CMP, PRL #### [address] Eosinophils (Bld) [#/Vol] 0.0 10*3/uL Normal 0.0-0.45 [facility] Comment on above: Performed By: #### C BC, PT, PTT, CK, HS TROP, CMP, PRL #### [address] Eosinophils/100 WBC (Bld) 0.1 % Normal . [facility] Comment on above: Performed By: #### C BC, PT, PTT, CK, HS TROP, CMP, PRL #### [address] Erythrocyte distribution width (RBC) [Ratio] 13.6 % Normal 12.0-14.8 [facility] Comment on above: Performed By: #### C BC, PT, PTT, CK, HS TROP, CMP, PRL #### [address] Hematocrit (Bld) [Volume fraction] 46.4 % Normal 38.8-50.0 [facility] Comment on above: Performed By: #### C BC, PT, PTT, CK, HS TROP, CMP, PRL #### [address] Hemoglobin (Bld) [Mass/Vol] 15.6 g/dL Normal 13.0-17.0 [facility] Comment on above: Performed By: #### C BC, PT, PTT, CK, HS TROP, CMP, PRL #### [address] Lymphocytes (Bld) [#/Vol] 0.4 10*3/uL Low 1.00-4.8 [facility] Comment on above: Performed By: #### C BC, PT, PTT, CK, HS TROP, CMP, PRL #### [address] Lymphocytes/100 WBC (Bld) 4.4 % Normal . [facility] Comment on above: Performed By: #### C BC, PT, PTT, CK, HS TROP, CMP, PRL #### [address] MCH (RBC) [Entitic mass] 28.8 pg Normal 27.5-35.2 [facility] Comment on above: Performed By: #### C BC, PT, PTT, CK, HS TROP, CMP, PRL #### [address] MCV (RBC) [Entitic vol] 85.6 fL Normal 83.5-101 [facility] Comment on above: Performed By: #### C BC, PT, PTT, CK, HS TROP, CMP, PRL #### [address] Mean Corpuscular HGB Conc 33.6 g/dL Normal 32.5-35.6 [facility] Comment on above: Performed By: #### C BC, PT, PTT, CK, HS TROP, CMP, PRL #### [address] Monocytes (Bld) [#/Vol] 0.3 10*3/uL Normal 0.0-0.8 [facility] Comment on above: Performed By: #### C BC, PT, PTT, CK, HS TROP, CMP, PRL #### [address] Monocytes/100 WBC (Bld) 15.39 % Normal 0.00-20.00 [facility] Comment on above: Performed By: #### C BC, PT, PTT, CK, HS TROP, CMP, PRL #### [address] Monocytes/100 WBC (Bld) 3.3 % Normal . [facility] Comment on above: Performed By: #### C BC, PT, PTT, CK, HS TROP, CMP, PRL #### [place] [address] [place] Neutrophils (Bld) [#/Vol] 9.2 10*3/uL High 1.8-7.7 [facility] Comment on above: Performed By: #### C BC, PT, PTT, CK, HS TROP, CMP, PRL #### [address] Neutrophils/100 WBC (Bld) 91.8 % Normal . [facility] Comment on above: Performed By: #### C BC, PT, PTT, CK, HS TROP, CMP, PRL #### [address] NRBC% 0.1 /100{WBC} Normal 0-0.5 [facility] Comment on above: Performed By: #### C BC, PT, PTT, CK, HS TROP, CMP, PRL #### [address] Platelet mean volume (Bld) [Entitic vol] 7.3 fL Normal 6.6-10.1 [facility] Comment on above: Performed By: #### C BC, PT, PTT, CK, HS TROP, CMP, PRL #### [address] Platelets (Bld) [#/Vol] 280 10*3/uL Normal 150-450 [facility] Comment on above: Performed By: #### C BC, PT, PTT, CK, HS TROP, CMP, PRL #### [address] RBC (Bld) [#/Vol] 5.42 10*6/uL Normal 3.90-5.60 [facility] Comment on above: Performed By: #### C BC, PT, PTT, CK, HS TROP, CMP, PRL #### [address] WBC (Bld) [#/Vol] 10.1 10*3/uL Normal 4.1-10.5 [facility] Comment on above: Performed By: #### C BC, PT, PTT, CK, HS TROP, CMP, PRL #### [address] Comprehensive Metabolic Pane wilner 11-17-2024 Albumin [Mass/Vol] 4.2 g/dL Normal 3.5-5.7 [facility] Comment on above: Performed By: #### C BC, PT, PTT, CK, HS TROP, CMP, PRL #### [address] Albumin/Globulin [Mass ratio] 1.7 {ratio} Normal [facility] Comment on above: Performed By: #### C BC, PT, PTT, CK, HS TROP, CMP, PRL #### [address] ALP [Catalytic activity/Vol] 95 U/L Normal 34-104 [facility] Comment on above: Performed By: #### C BC, PT, PTT, CK, HS TROP, CMP, PRL #### [address] ALT [Catalytic activity/Vol] 12 U/L Normal 7-52 [facility] Comment on above: Performed By: #### C BC, PT, PTT, CK, HS TROP, CMP, PRL #### [address] Anion gap [Moles/Vol] 13.0 mmol/L Normal 6.0-15.0 [facility] Comment on above: Performed By: #### C BC, PT, PTT, CK, HS TROP, CMP, PRL #### [address] AST [Catalytic activity/Vol] 24 U/L Normal 13-39 [facility] Comment on above: Performed By: #### C BC, PT, PTT, CK, HS TROP, CMP, PRL #### [address] Bilirubin [Mass/Vol] 0.6 mg/dL Normal 0.3-1.0 [facility] Comment on above: Performed By: #### C BC, PT, PTT, CK, HS TROP, CMP, PRL #### [address] Calcium [Mass/Vol] 9.1 mg/dL Normal 8.6-10.3 [facility] Comment on above: Performed By: #### C BC, PT, PTT, CK, HS TROP, CMP, PRL #### [address] Chloride [Moles/Vol] 104 mmol/L Normal 98-107 [facility] Comment on above: Performed By: #### C BC, PT, PTT, CK, HS TROP, CMP, PRL #### [address] CO2 [Moles/Vol] 29.2 mmol/L Normal 21.0-31.0 [facility] Comment on above: Performed By: #### C BC, PT, PTT, CK, HS TROP, CMP, PRL #### [address] Creatinine [Mass/Vol] 1.27 mg/dL Normal 0.70-1.30 [facility] Comment on above: Performed By: #### C BC, PT, PTT, CK, HS TROP, CMP, PRL #### [address] GFR/1.73 sq M.predicted MDRD (S/P/Bld) [Vol rate/Area] mL/min/{1.73_m2} Normal [facility] Comment on above: Performed By: #### C BC, PT, PTT, CK, HS TROP, CMP, PRL #### [address] Globulin (S) [Mass/Vol] 2.5 g/dL Normal [facility] Comment on above: Performed By: #### C BC, PT, PTT, CK, HS TROP, CMP, PRL #### [address] Glucose [Mass/Vol] 163 mg/dL High 70-100 [facility] Comment on above: Result Comment: [facility] Glucose Reference Range is dependent on time and content of last meal. Glucose of more than 200 mg/dL in a nonstressed, ambulatory subject supports the diagnosis of Diabetes Mellitus. ADA recommended reference range Performed By: #### C BC, PT, PTT, CK, HS TROP, CMP, PRL #### [address] Potassium [Moles/Vol] 4.2 mmol/L Normal 3.5-5.1 [facility] Comment on above: Performed By: #### C BC, PT, PTT, CK, HS TROP, CMP, PRL #### [address] Protein [Mass/Vol] 6.7 g/dL Normal 6.4-8.9 [facility] Comment on above: Performed By: #### C BC, PT, PTT, CK, HS TROP, CMP, PRL #### [address] Sodium [Moles/Vol] 142 mmol/L Normal 136-145 [facility] Comment on above: Performed By: #### C BC, PT, PTT, CK, HS TROP, CMP, PRL #### [address] Urea nitrogen [Mass/Vol] 16 mg/dL Normal 7-25 [facility] Comment on above: Performed By: #### C BC, PT, PTT, CK, HS TROP, CMP, PRL #### [address] Creatine Kinaseon 11-17-2024 CK [Catalytic activity/Vol] 134 U/L Normal 30-223 [facility] Comment on above: Performed By: #### C BC, PT, PTT, CK, HS TROP, CMP, PRL #### [address] Creatine kinase [Enzymatic a ctivity/volume] in Serum or PlasmaOrdered By: Ragini Carmona on 11-17-2024 CK [Catalytic activity/Vol] Creatine kinase [Enzymatic activity/volume] in Serum or Plasma 30- [facility] Dipstick and Microscopicon 0 11-17-2024 Appearance (U) Clear Normal Clear [facility] Comment on above: Order Comment: Name Collection Type:: Clean-Voided Midstream Performed By: #### C BC, PT, PTT, CK, HS TROP, CMP, PRL #### [address] Bacteria,Urine None Seen Normal None Seen [facility] Comment on above: Order Comment: Name Collection Type:: Clean-Voided Midstream Performed By: #### C BC, PT, PTT, CK, HS TROP, CMP, PRL #### [facility] [address] [place] [address] [place] Bilirubin,Urine Negative Normal Negative [facility] Comment on above: Order Comment: Name Collection Type:: Clean-Voided Midstream Performed By: #### C BC, PT, PTT, CK, HS TROP, CMP, PRL #### [facility] [address] Color (U) Yellow Normal Yellow [facility] Comment on above: Order Comment: Name Collection Type:: Clean-Voided Midstream Performed By: #### C BC, PT, PTT, CK, HS TROP, CMP, PRL #### [address] Glucose Ql (U) 70 mg/dL High Normal [facility] Comment on above: Order Comment: Name Collection Type:: Clean-Voided Midstream Performed By: #### C BC, PT, PTT, CK, HS TROP, CMP, PRL #### [address] Hyaline Casts,Urine None Normal 0-8 [facility] Comment on above: Order Comment: Name Collection Type:: Clean-Voided Midstream Performed By: #### C BC, PT, PTT, CK, HS TROP, CMP, PRL #### [place] [address] [place] Ketones Ql (U) Negative Normal Negative [facility] Comment on above: Order Comment: Name Collection Type:: Clean-Voided Midstream Performed By: #### C BC, PT, PTT, CK, HS TROP, CMP, PRL #### [place] [address] [place] Leukocyte esterase Test strip Ql (U) Negative Normal Negative [facility] Comment on above: Order Comment: Name Collection Type:: Clean-Voided Midstream Performed By: #### C BC, PT, PTT, CK, HS TROP, CMP, PRL #### [place] [address] [place] Mucus,Urine Rare Normal [facility] Comment on above: Order Comment: Name Collection Type:: Clean-Voided Midstream Result Comment: PERF ORMED BY: [place] [address] PATHOLOGIST [employer] SUPER[employer] VÍCTOR LUCERO M.D. Performed By: #### C BC, PT, PTT, CK, HS TROP, CMP, PRL #### [address] Nitrite,Urine Negative Normal Negative [facility] Comment on above: Order Comment: Name Collection Type:: Clean-Voided Midstream Performed By: #### C BC, PT, PTT, CK, HS TROP, CMP, PRL #### [address] Occult Blood,Urine Negative Normal Negative [facility] Comment on above: Order Comment: Name Collection Type:: Clean-Voided Midstream Performed By: #### C BC, PT, PTT, CK, HS TROP, CMP, PRL #### [address] pH (U) 6.5 [pH] Normal 5.0-9.0 [facility] Comment on above: Order Comment: Name Collection Type:: Clean-Voided Midstream Performed By: #### C BC, PT, PTT, CK, HS TROP, CMP, PRL #### [address] Protein (U) [Mass/Vol] 70 mg/dL High Negative [facility] Comment on above: Order Comment: Name Collection Type:: Clean-Voided Midstream Performed By: #### C BC, PT, PTT, CK, HS TROP, CMP, PRL #### [address] RBC,Urine 3 [HPF] Normal 0-4 [facility] Comment on above: Order Comment: Name Collection Type:: Clean-Voided Midstream Performed By: #### C BC, PT, PTT, CK, HS TROP, CMP, PRL #### [address] Specificy [place],Urine >1.050 High 1.001-1.030 [facility] Comment on above: Order Comment: Name Collection Type:: Clean-Voided Midstream Result Comment: Rech ecked by refractometer Performed By: #### C BC, PT, PTT, CK, HS TROP, CMP, PRL #### [address] Squamous Epithelial Cell,Urine 1 [HPF] Normal 0-2 [facility] Comment on above: Order Comment: Name Collection Type:: Clean-Voided Midstream Performed By: #### C BC, PT, PTT, CK, HS TROP, CMP, PRL #### [address] Urobilinogen,Urine Normal Normal Normal [facility] Comment on above: Order Comment: Name Collection Type:: Clean-Voided Midstream Performed By: #### C BC, PT, PTT, CK, HS TROP, CMP, PRL #### [address] WBC,Urine 1 [HPF] Normal 0-4 [facility] Comment on above: Order Comment: Name Collection Type:: Clean-Voided Midstream Performed By: #### C BC, PT, PTT, CK, HS TROP, CMP, PRL #### [address] Drug Screen,Urineon 11-17-19 25 Amphetamine Screen,Urine Positive High Negative [facility] Comment on above: Performed By: #### C BC, PT, PTT, CK, HS TROP, CMP, PRL #### [address] Barbiturate Screen,Urine Negative Normal Negative [facility] Comment on above: Performed By: #### C BC, PT, PTT, CK, HS TROP, CMP, PRL #### [address] Benzodiazepines Screen,Urine Positive High Negative [facility] Comment on above: Performed By: #### C BC, PT, PTT, CK, HS TROP, CMP, PRL #### [address] Cannabinoid Screen,Urine Positive High Negative [facility] Comment on above: Result Comment: Thes e are unconfirmed results and should not be used for legal purposes. Drug Cut-Off Concentration: AMPH 1000 ng/mL BHASKAR 200 ng/mL RIKKI 200 ng/mL COCM 300 ng/mL OP 300 ng/mL PCP 25 ng/mL THC 20 ng/mL PERFORMED BY: [place] [address] PATHOLOGIST [employer]PER[employer] VÍCTOR LUCERO M.D. Performed By: #### C BC, PT, PTT, CK, HS TROP, CMP, PRL #### [address] Cocaine Screen,Urine Negative Normal Negative [facility] Comment on above: Performed By: #### C BC, PT, PTT, CK, HS TROP, CMP, PRL #### [address] Opiate Screen,Urine Negative Normal Negative [facility] Comment on above: Performed By: #### C BC, PT, PTT, CK, HS TROP, CMP, PRL #### [address] Phencyclidine Screen,Urine Negative Normal Negative [facility] Comment on above: Performed By: #### C BC, PT, PTT, CK, HS TROP, CMP, PRL #### [address] ECG 12 lead ECGon 11-17-2024 ECG 12 lead ECG [facility] [place] [address] [place] [address] Electrocardiograph Report Signed Patient: Aaron Olivarez MR#: [id number] 00 : 1960 Acct:[id number] Age/Sex: 64 / M ADM Date: 11/17/24 Loc: Room: [address] [place] [address] Type: ADM INOo Attending Dr: Chaz Frey [...] By Ragini Carmona DO 1445 Normal [facility] Epithelial cells.squamous [# /area] in Urine sediment by Automated countOrdered By: Ragini Carmona on 11-17-2024 Epithelial cells.squamous Auto (Urine sed) [#/Area] Epithelial cells.squamous [#/area] in Urine sediment by Automated count 0-2 [facility] Erythrocyte Sedimentation Ra irene 11-17-2024 ESR (Bld) [Velocity] 2 mm/h Normal 0-19 [facility] Comment on above: Result Comment: PERF ORMED BY: [place] [address] PATHOLOGIST ROASTER SUPERVISOR VÍCTOR LUCERO M.D. Performed By: #### C BC, PT, PTT, CK, HS TROP, CMP, PRL #### [facility] [address] [place] [address] Erythrocyte sedimentation ra te by Photometric methodOrdered By: Chaz Frey on 11-17-2024 ESR Photometric method (Bld) [Velocity] Erythrocyte sedimentation rate by Photometric method 0-19 [facility] Erythrocytes [#/area] in Uri ne sediment by Automated countOrdered By: Ragini Carmona on 11-17-2024 RBC Auto (Urine sed) [#/Area] Erythrocytes [#/area] in Urine sediment by Automated count 0-4 [facility] Ethanol [Mass/volume] in Ser um or PlasmaOrdered By: Ragini Carmona on 11-17-2024 Ethanol [Mass/Vol] Ethanol [Mass/volume ] in Serum or Plasma [facility] Comment on above: Test not performed Ethyl Alcohol Profileon Ethanol [Mass/Vol] mg/dL Normal [facility] Comment on above: Performed By: #### C BC, PT, PTT, CK, HS TROP, CMP, PRL #### [facility] [address] [place] [address] [place] Percent Ethanol Not performed Normal [facility] Comment on above: Result Comment: PERF ORMED BY: [facility] [address] [place] [address] PATHOLOGIST ROASTER SUPERVISOR VÍCTOR LUCERO M.D. Performed By: #### C BC, PT, PTT, CK, HS TROP, CMP, PRL #### [facility] [address] [place] [address] [facility] Glucose Glucometer (BldC) [M ass/Vol]Ordered By: Ragini Carmona on 11-17-2024 Glucose [Mass/Vol] Capillary blood gluc ose measurement by glucometer (mass/volume) [facility] Comment on above: Random Glucose Refer ence Range is dependent on time and content of last meal. Glucose of more than 200 mg/dL in a nonstressed, ambulatory subject supports the diagnosis of Diabetes Mellitus. Glucose Poct Glucometerson 0 11-17-2024 Glucose [Mass/Vol] 175 mg/dL Normal [facility] Comment on above: Result Comment: [place] om Glucose Reference Range is dependent on time and content of last meal. Glucose of more than 200 mg/dL in a nonstressed, ambulatory subject supports the diagnosis of Diabetes Mellitus. PERFORMED BY: [facility] [address] [facility] [address] PATHOLOGIST ROASTER SUPERVISOR VÍCTOR LUCERO M.D. Performed By: #### C BC, PT, PTT, CK, HS TROP, CMP, PRL #### [facility] [address] [place] [address] [facility] Glucose [Mass/volume] in Uri ne by Test stripOrdered By: Ragini Carmona on 11-17-2024 Glucose Test strip (U) [Mass/Vol] Glucose [Mass/volume] in Urine by Test strip High Normal [facility] Hemoglobin Test strip Ql (U) Ordered By: Ragini Carmona on 11-17-2024 Hemoglobin Ql (U) Hemoglobin [Presence ] in Urine by Test strip Negative [facility] Hyaline casts [#/area] in Ur ine sediment by Automated countOrdered By: Ragini Carmona on 11-17-2024 Hyaline casts Auto (Urine sed) [#/Area] Hyaline casts [#/area] in Urine sediment by Automated count 0-8 [facility] INR in Platelet poor plasma by Coagulation assayOrdered By: Ragini Carmona on 11-17-2024 INR Coag (PPP) [Relative time] INR in Platelet poor plasma by Coagulation assay [facility] Comment on above: INR Therapeutic Rang [...] i n Urine by Test strip Negative [facility] Leukocyte esterase [Presence ] in Urine by Test stripOrdered By: Ragini Carmona on 11-17-2024 Leukocyte esterase Test strip Ql (U) Leukocyte esterase [Presence] in Urine by Test strip Negative [facility] Leukocytes [#/area] in Urine sediment by Automated countOrdered By: Ragini Carmona on 11-17-2024 WBC Auto (Urine sed) [#/Area] Leukocytes [#/area] in Urine sediment by Automated count 0-4 [facility] Magnesiumon 11-17-2024 Magnesium [Mass/Vol] 1.9 mg/dL Normal 1.9-2.7 [facility] Comment on above: Order Comment: Comme nt add on Result Comment: PERF ORMED BY: [facility] [address] [address] PATHOLOGIST ROASTER SUPERVISOR VÍCTOR LUCERO M.D. Performed By: #### C BC, PT, PTT, CK, HS TROP, CMP, PRL #### [facility] [address] Magnesium [Mass/volume] in S andrei or PlasmaOrdered By: Chaz Frey on 11-17-2024 Magnesium [Mass/Vol] Magnesium [Mass/vol ume] in Serum or Plasma 1.9-2.7 [facility] Methamphetamine [Presence] i n UrineOrdered By: Chaz Frey on 11-17-2024 Methamphetamine Ql (U) Methamphetamine [Presence] in Urine Abnormal . [facility] Methamphetamine cutoff [Mass /volume] in Urine for Confirmatory methodOrdered By: Chaz Frey on 11-17-2024 Methamphetamine cutoff Confirm (U) [Mass/Vol] Methamphetamine cutoff [Mass/volume] in Urine for Confirmatory method Koilqs=692 [facility] Monocyte distribution width [Entitic volume] in Blood by AutomatedOrdered By: Ragini Carmona on 11-17-2024 Monocyte distribution width Auto (Bld) [Entitic vol] Monocyte distribution width [Entitic volume] in Blood by Automated 0.00-20.00 [facility] Mucus [Presence] in Urine by AutomatedOrdered By: Ragini Carmona on 11-17-2024 Mucus Auto Ql (U) Mucus [Presence] in Urine by Automated [facility] Nitrite Test strip Ql (U)Ord ered By: Ragini Carmona on 11-17-2024 Nitrite Ql (U) Nitrite [Presence] i n Urine by Test strip Negative [facility] Opiates [Presence] in UrineO rdered By: Chaz Frey on 11-17-2024 Opiates Ql (U) Opiates [Presence] i n Urine Mgqnta=812 [facility] Comment on above: Opiate test includes Codeine and Morphine only. Opiates [Presence] in Urine by Screen methodOrdered By: Ragini Carmona on 11-17-2024 Opiates Screen Ql (U) Opiates [Presence] in Urine by Screen method Negative [facility] Partial Thromboplastin Timeo n 11-17-2024 aPTT Coag (Bld) [Time] 22.3 s Low 25.1-36.5 [facility] Comment on above: Result Comment: A he matocrit value greater than 55% may lead to inaccurate results in coagulation testing. Patients having hematocrit values >55% require a special collection tube for coagulation studies. Please contact the laboratory at [phone] for redraw instructions. PERFORMED BY: [place] [id number] PATHOLOGIST ROASTER SUPERVISOR VÍCTOR LUCERO M.D. Performed By: #### C BC, PT, PTT, CK, HS TROP, CMP, PRL #### [address] [address] [facility] Phencyclidine Screen Ql (U)O rdered By: Ragini Carmona on 11-17-2024 Phencyclidine Ql (U) Phencyclidine [Pres ence] in Urine by Screen method Negative [facility] Phencyclidine [Presence] in UrineOrdered By: Chaz Frey on 11-17-2024 Phencyclidine Ql (U) Phencyclidine [Pres ence] in Urine Cutoff=25 [facility] Comment on above: Performed at: [facility] [id number] [place], [place] [id number] Director: Adenike Panchal PhD, Phone: [phone] Prolactinon 11-17-2024 Prolactin 14.22 ng/mL High 2.64-13.13 [facility] Comment on above: Result Comment: PERF ORMED BY: [place] [address] PATHOLOGIST ROASTER SUPERVISOR VÍCTOR LUCERO M.D. Performed By: #### C BC, PT, PTT, CK, HS TROP, CMP, PRL #### [place] [id number] [facility] Protein Test strip (U) [Mass /Vol]Ordered By: Ragini Carmona on 11-17-2024 Protein (U) [Mass/Vol] Protein [Mass/volume] in Urine by Test strip High Negative [facility] Prothrombin Time INRon 11-17 INR Coag (PPP) [Relative time] 1.0 {INR} Normal [facility] Comment on above: Result Comment: [...] PTT, CK, HS TROP, CMP, PRL #### [facility] [address] PT Coag (PPP) [Time] 11.9 s Normal 9.0-12.9 [facility] Comment on above: Result Comment: A he matocrit value greater than 55% may lead to inaccurate results in coagulation testing. Patients having hematocrit values >55% require a special collection tube for coagulation studies. Please contact the laboratory at [phone] for redraw instructions. Performed By: #### C BC, PT, PTT, CK, HS TROP, CMP, PRL #### [facility] [address] Prothrombin time (PT)Ordered By: Ragini Carmona on 11-17-2024 PT Coag (PPP) [Time] Prothrombin time (PT) 9.0- 12.9 [facility] Comment on above: A hematocrit value g reater than 55% may lead to inaccurate results in coagulation testing. Patients having hematocrit values >55% require a special collection tube for coagulation studies. Please contact the laboratory at [phone] for redraw instructions. Specific gravity of Urine by RefractometryOrdered By: Ragini Carmona on 11-17-2024 Specific gravity Refractometry (U) [Rel density] Specific gravity of Urine by Refractometry High 1.001-1.030 [facility] Comment on above: Rechecked by refract ometer Troponin I High Sensitivityo n 11-17-2024 Troponin I High Sensitivity 36.7 pg/mL High 0.0-20.0 [facility] Comment on above: Result Comment: PERF ORMED BY: [place] [address] PATHOLOGIST ROASTER SUPERVISOR VÍCTOR LUCERO M.D. Performed By: #### C BC, PT, PTT, CK, HS TROP, CMP, PRL #### [address] Troponin I High Sensitivity 21.1 pg/mL High 0.0-20.0 [facility] Comment on above: Result Comment: PERF ORMED BY: [place] [address] PATHOLOGIST ROASTER SUPERVISOR VÍCTOR LUCERO M.D. Performed By: #### C BC, PT, PTT, CK, HS TROP, CMP, PRL #### [address] Urine Drug Screen w/Confirmo n 11-17-2024 Amphetamines GC/MS Confirm, Ur 527 ng/mL Normal Hmcqus=117 [facility] Comment on above: Performed By: #### C BC, PT, PTT, CK, HS TROP, CMP, PRL #### [address] Amphetamines, Ur See Final Results Normal Tyyqtm=7432 [facility] Comment on above: Result Comment: Amph etamine test includes Amphetamine and Methamphetamine. Performed By: #### C BC, PT, PTT, CK, HS TROP, CMP, PRL #### [address] Amphetamines, Ur Positive Critically abnormal . [facility] Comment on above: Result Comment: Amph etamine test includes Amphetamine and Methamphetamine. Performed By: #### C BC, PT, PTT, CK, HS TROP, CMP, PRL #### [address] Barbiturate, Ur Negative Normal Pbjdrb=498 [facility] Comment on above: Performed By: #### C BC, PT, PTT, CK, HS TROP, CMP, PRL #### [address] Benzodiazepines, Ur See Final Results Normal Cutoff=30 0 [facility] Comment on above: Performed By: #### C BC, PT, PTT, CK, HS TROP, CMP, PRL #### [address] Benzodiazepines, Urine Negative Normal Rsvxgt=226 [facility] Comment on above: Performed By: #### C BC, PT, PTT, CK, HS TROP, CMP, PRL #### [facility] [address] Cannabinoid, Ur See Final Results Normal Cutoff=50 [facility] Comment on above: Performed By: #### C BC, PT, PTT, CK, HS TROP, CMP, PRL #### [address] Cannabinoid, Urine Negative Normal Cutoff=50 [facility] Comment on above: Result Comment: PERF ORMED BY: [place] [address] PATHOLOGIST ROASTER SUPERVISOR VÍCTOR LUCERO M.D. Performed By: #### C BC, PT, PTT, CK, HS TROP, CMP, PRL #### [address] Cocaine (Metab), Ur Negative Normal Zdirqk=127 [facility] Comment on above: Performed By: #### C BC, PT, PTT, CK, HS TROP, CMP, PRL #### [address] Methamphetamine Positive Critically abnormal . [facility] Comment on above: Performed By: #### C BC, PT, PTT, CK, HS TROP, CMP, PRL #### [address] Methamphetamines GC/MS, Ur >3000 Normal Nrywit=176 [facility] Comment on above: Performed By: #### C BC, PT, PTT, CK, HS TROP, CMP, PRL #### [address] Opaites, Ur Negative Normal Shozbs=001 [facility] Comment on above: Result Comment: Opia te test includes Codeine and Morphine only. Performed By: #### C BC, PT, PTT, CK, HS TROP, CMP, PRL #### [place] [address] [place] Phencyclidine, Ur Negative Normal Cutoff=25 [facility] Comment on above: Result Comment: Perf ormed at: [facility] [address] [place], [place] [id number] Die Grinder: Adenike Panchal PhD, Phone: [phone] Performed By: #### C BC, PT, PTT, CK, HS TROP, CMP, PRL #### [address] Urine cocaine metabolite det ectionOrdered By: Chaz Frey on 11-17-2024 Benzoylecgonine Ql (U) Urine cocaine metabolite detection Otsibb=421 [facility] Urobilinogen Test strip (U) [Mass/Vol]Ordered By: Ragini Carmona on 11-17-2024 Urobilinogen (U) [Mass/Vol] Urobilinogen [Mass/volume] in Urine by Test strip Normal [facility] Vitamin B12on 11-17-2024 Cobalamin (Vitamin B12) [Mass/Vol] 313 pg/mL Normal 180-914 [facility] Comment on above: Result Comment: PERF ORMED BY: [place] [address] PATHOLOGIST ROASTER SUPERVISOR VÍCTOR LUCERO M.D. Performed By: #### C BC, PT, PTT, CK, HS TROP, CMP, PRL #### [address] Vitamin B12 ser/plasOrdered By: Chaz Frey on 11-17-2024 Cobalamin (Vitamin B12) [Mass/Vol] Vitamin B12 ser/plas 180-914 [facility] X-ray reportOrdered By: Dung Chakraborty on 11-17-2024 Study report [facility] [place] [address] [place] [address] XRay Report Signed Patient: Aaron Olivarez MR#: [id number] : 1960 Acct:[id number] Age/Sex: 64 / M ADM Date: 5 Loc: Room: [address] [place] [address] Type: ADM INOo Attending Dr: Chaz Frey [...] Dung Chakraborty M.D.11/17/2024 1:26 PM Dictation Location: [place] [address] Transcribed By: [facility] 11/17/24 1326 Dictated By: Dung Chakraborty II, MD 11/17/24 1326 Signed By: 11/17/24 1326 [facility] Work Phone: XR chest 1V portableon 11-17 XR chest 1V portable [facility] [place] [address] XRay Report Signed Patient: Aaron Olivarez MR#: [id number] 00 : 1960 Acct:[id number] Age/Sex: 64 / M ADM Date: 11/17/24 Loc: Room: [address] [place] [address] Type: ADM INOo Attending Dr: Chaz Frey [...] Dung Chakraborty M.D.11/17/2024 1:26 PM Dictation Location: [place] [address] Transcribed By: YNES 11/17/24 1328 Dictated By: Dung Chakraborty II, MD 11/17/241325 Signed By: 11/17/24 1326 Normal [facility] aPTT in Platelet poor plasma by Coagulation assayOrdered By: Ragini Carmona on 11-17-2024 aPTT Coag (PPP) [Time] Activated partial thromboplastin time (aPTT) in platelet poor plasma by coagulation a Low 25.1-36.5 [facility] Comment on above: A hematocrit value g reater than 55% may lead to inaccurate results in coagulation testing. Patients having hematocrit values >55% require a special collection tube for coagulation studies. Please contact the laboratory at [phone] for redraw instructions. pH Test strip (U)Ordered By: Ragini Carmona on 11-17-2024 pH (U) pH of Urine by Test strip 5.0-9.0 [facility] CBC with Diffon 07-15-2024 Abs. Basophil 0.04 k/uL Normal 0.00-0.20 [facility] Comment on above: Performed By: #### C DP, CMPX, MG #### [facility] [employer] [address] [place] [phone] Die Grinder: Dario Almanza MD Abs.Imm.Granulocyte <0.03 Normal 0.00-0.30 [facility] Comment on above: Performed By: #### C DP, CMPX, MG #### [facility] [employer] [address] [place] [phone] Die Grinder: Dario Almanza MD Abs.Neutrophil (Seg) 3.52 k/uL Normal 1.50-8.10 [facility] Comment on above: Performed By: #### C DP, CMPX, MG #### [facility] [employer] [address] [place] [address] Die Grinder: Dario Almanza MD Basophils/100 WBC (Bld) 1 % Normal 0-2 [facility] Comment on above: Performed By: #### C DP, CMPX, MG #### [facility] [employer] [address] [place] [phone] Die Grinder: Dario Almanza MD Eosinophils (Bld) [#/Vol] 0.03 10*3/uL Normal 0.00-0.44 [facility] Comment on above: Performed By: #### C DP, CMPX, MG #### [facility] [employer] [address] [place] [phone] Die Grinder: Dario Almanza MD Eosinophils/100 WBC (Bld) 1 % Normal 1-4 [facility] Comment on above: Performed By: #### C DP, CMPX, MG #### [facility] [employer] [address] [place] [phone] Die Grinder: Dario Almanza MD Erythrocyte distribution width (RBC) [Ratio] 13.1 % Normal 11.8-14.4 [facility] Comment on above: Performed By: #### C DP, CMPX, MG #### [facility] [address] [place] [phone] Die Grinder: Dario Almanza MD Hematocrit (Bld) [Volume fraction] 42.4 % Normal 40.7-50.3 [facility] Comment on above: Performed By: #### C DP, CMPX, MG #### [facility] [address] [place] [phone] Die Grinder: Dario Almanza MD Hemoglobin (Bld) [Mass/Vol] 13.7 g/dL Normal 13.0-17.0 [facility] Comment on above: Performed By: #### C DP, CMPX, MG #### [facility] [address] [place] [phone] Die Grinder: Dario Almanza MD Immature granulocytes/100 WBC (Bld) 0 % Normal 0 [facility] Comment on above: Performed By: #### C DP, CMPX, MG #### [facility] [employer] [address] [place] [phone] Die Grinder: Dario Almanza MD Lymphocytes (Bld) [#/Vol] 1.19 10*3/uL Normal 1.10-3.70 [facility] Comment on above: Performed By: #### C DP, CMPX, MG #### [facility] [employer] [address] [place] [phone] Die Grinder: Dario Almanza MD Lymphocytes/100 WBC (Bld) 22 % Low 24-43 [facility] Comment on above: Performed By: #### C DP, CMPX, MG #### [facility] [employer] [address] [place] [phone] Die Grinder: Dario Almanza MD MCH (RBC) [Entitic mass] 29.6 pg Normal 25.2-33.5 [facility] Comment on above: Performed By: #### C DP, CMPX, MG #### [facility] [employer] [address] [place] [phone] Die Grinder: Dario Almanza MD MCHC (RBC) [Mass/Vol] 32.3 g/dL Normal 28.4-34.8 [facility] Comment on above: Performed By: #### C DP, CMPX, MG #### [facility] [employer] [address] [place] [phone] Die Grinder: Dario Almanza MD MCV (RBC) [Entitic vol] 91.6 fL Normal 82.6-102.9 [facility] Comment on above: Performed By: #### C DP, CMPX, MG #### [facility] [employer] [address] [place] [phone] Die Grinder: Dario Almanza MD Monocytes (Bld) [#/Vol] 0.61 10*3/uL Normal 0.10-1.20 [facility] Comment on above: Performed By: #### C DP, CMPX, MG #### [address] [address] Die Grinder: Dario Almanza MD Monocytes/100 WBC (Bld) 11 % Normal 3-12 [facility] Comment on above: Performed By: #### C DP, CMPX, MG #### [address] [address] Die Grinder: Dario Almanza MD Neutrophil (Seg) 65 % Normal 36-65 [facility] Comment on above: Performed By: #### C DP, CMPX, MG #### [address] [address] Die Grinder: Dario Almanza MD NRBC Automated 0.0 per 100 WBC Normal 0.0 [facility] Comment on above: Performed By: #### C DP, CMPX, MG #### [address] [address] Die Grinder: Dario Almanza MD Platelet mean volume (Bld) [Entitic vol] 9.2 fL Normal 8.1-13.5 [facility] Comment on above: Performed By: #### C DP, CMPX, MG #### [address] [address] Die Grinder: Dario Almanza MD Platelets (Bld) [#/Vol] 227 10*3/uL Normal 138-453 [facility] Comment on above: Performed By: #### C DP, CMPX, MG #### [facility] [employer] [address] [place] [phone] Die Grinder: Dario Almanza MD RBC (Bld) [#/Vol] 4.63 10*6/uL Normal 4.21-5.77 [facility] Comment on above: Performed By: #### C DP, CMPX, MG #### [address] [address] Die Grinder: Dario Almanza MD WBC (Bld) [#/Vol] 5.4 10*3/uL Normal 3.5-11.3 [facility] Comment on above: Performed By: #### C DP, CMPX, MG #### [address] [address] Die Grinder: Dario Almanza MD Comp Metabolic Pr/rfx MGon 0 07-15-2024 Albumin [Mass/Vol] 3.8 g/dL Normal 3.5-5.2 [facility] Comment on above: Performed By: #### C DP, CMPX, MG #### [address] [address] Die Grinder: Dario Almanza MD Albumin/Glob Ratio 2.0 Normal 1.0-2.5 [facility] Comment on above: Performed By: #### C DP, CMPX, MG #### [address] [address] Die Grinder: Dario Almanza MD Alkaline Phos 104 U/L Normal 40-129 [facility] Comment on above: Performed By: #### C DP, CMPX, MG #### [facility] [employer] [address] [place] [phone] Die Grinder: Dario Almanza MD ALT [Catalytic activity/Vol] 7 U/L Low 10-50 [facility] Comment on above: Performed By: #### C DP, CMPX, MG #### [facility] [employer] [address] [place] [phone] Die Grinder: Dario Almanza MD Anion gap [Moles/Vol] 7 mmol/L Low 9-16 [facility] Comment on above: Performed By: #### C DP, CMPX, MG #### [facility] [employer] [address] [place] [phone] Die Grinder: Dario Almanza MD AST [Catalytic activity/Vol] 20 U/L Normal 10-50 [facility] Comment on above: Performed By: #### C DP, CMPX, MG #### [facility] [employer] [address] [place] [phone] Die Grinder: Dario Almanza MD Bilirubin [Mass/Vol] 0.6 mg/dL Normal 0.00-1.20 [facility] Comment on above: Performed By: #### C DP, CMPX, MG #### [facility] [employer] [address] [place] [phone] Die Grinder: Dario Almanza MD Calcium [Mass/Vol] 9.3 mg/dL Normal 8.6-10.4 [facility] Comment on above: Performed By: #### C DP, CMPX, MG #### [address] [address] Die Grinder: Dario Almanza MD Chloride [Moles/Vol] 103 mmol/L Normal 98-107 [facility] Comment on above: Performed By: #### C DP, CMPX, MG #### [facility] [employer] [address] [place] [phone] Die Grinder: Dario Almanza MD CO2 [Moles/Vol] 28 mmol/L Normal 20-31 [facility] Comment on above: Performed By: #### C DP, CMPX, MG #### [facility] [employer] [address] [place] [phone] Die Grinder: Dario Almanza MD Creatinine [Mass/Vol] 0.9 mg/dL Normal 0.70-1.20 [facility] Comment on above: Performed By: #### C DP, CMPX, MG #### [employer] [address] [place] [id number] Die Grinder: Dario Almanza MD GFR/1.73 sq M.predicted among non-blacks MDRD (S/P/Bld) [Vol rate/Area] mL/min/{1.73_m2} Normal >60 [facility] Comment on above: Result Comment: These [...] By: #### C DP, CMPX, MG #### [facility] [employer] [address] [place] [phone] Die Grinder: Dario Almanza MD Glucose [Mass/Vol] 95 mg/dL Normal 74-99 [facility] Comment on above: Performed By: #### C DP, CMPX, MG #### [facility] [address] [place] [phone] Die Grinder: Dario Almanza MD Potassium [Moles/Vol] 3.4 mmol/L Low 3.7-5.3 [facility] Comment on above: Performed By: #### C DP, CMPX, MG #### [facility] [address] [place] [address] Die Grinder: Dario Almanza MD Protein [Mass/Vol] 5.8 g/dL Low 6.6-8.7 [facility] Comment on above: Performed By: #### C DP, CMPX, MG #### [facility] [address] [place] [phone] Die Grinder: Dario Almanza MD Sodium [Moles/Vol] 138 mmol/L Normal 136-145 [facility] Comment on above: Performed By: #### C DP, CMPX, MG #### [facility] [address] [place] [address] Die Grinder: Dario Almanza MD Urea nitrogen [Mass/Vol] 15 mg/dL Normal - [facility] Comment on above: Performed By: #### C DP, CMPX, MG #### [facility] [address] [place], [place] [id number] Die Grinder: Dario Almanza MD Magnesiumon 07-15-2024 Magnesium [Mass/Vol] 2.0 mg/dL Normal 1.6-2.4 [facility] Comment on above: Performed By: #### C DP, CMPX, MG #### [facility] [address] [place] [address] Die Grinder: Dario Almanza MD BUN, POCon 07-14-2024 Urea nitrogen [Mass/Vol] 18 mg/dL Normal 07-[address] [facility] [address] BRAIN PERFUSIONon 024 CT BRAIN [...] Montilla MD 07/14/24 Final result Normal [facility] CTA HEAD NECK W CONTRASTon [...] reasonably achievable. This scan was analyzed using [email or web address] contact LVO. Identification of suspected findings is [...] Interpreted by: Edgar Montilla MD Signed by: Egdar Montilla MD 07/14/24 Final result Normal [facility] Calcium, Ionic (POC)on 07-14 Calcium [Moles/Vol] 1.11 mmol/L Low 1.15-1.33 [facility] Creatinine w/GFR, POCon Creatinine [Mass/Vol] 1.0 mg/dL Normal 0.51-1.19 [facility] GFR/1.73 sq M.predicted among non-blacks MDRD (S/P/Bld) [Vol rate/Area] 84 mL/min/{1.73_m2} Normal >60 [facility] Comment on above: Result Comment: These [...] Abuse, Uron 2023 Amphetamine(s),Ur Positive Abnormal NEG [facility] Comment on above: Result Comment: Cuto ff: 1000 ng/mL Performed By: #### U AMIC, MARIA D #### [facility] [employer] [address] [place] [phone] Die Grinder: Dario Almanza MD Benzodiazepine(s) Positive Abnormal NEG [facility] Comment on above: Result Comment: Cuto ff: 200 ng/ml Performed By: #### U AMIC, MARIA D #### [facility] [address] [place] [phone] Die Grinder: Dario Almanza MD Cannabinoid(s),Ur Positive Abnormal NEG [facility] Comment on above: Result Comment: Cuto ff: 50 ng/ml Performed By: #### U AMIC, MARIA D #### [facility] [address] [place] [phone] Die Grinder: Dario Almanza MD Interpretive Info Assay provides rapid clinical screening only. Presumptive positive results for Normal [facility] Comment on above: Result Comment: lega l purposes should be confirmed by another method. To request confirmation, please call the lab within 7 days of sample submission. Performed By: #### U AMIC, MARIA D #### [facility] [address] [place] [phone] Die Grinder: Dario Almanza MD Barbiturate(s),Ur Negative Normal NEG [facility] Comment on above: Result Comment: Cuto ff: 200 ng/ml Performed By: #### U AMIC, MARIA D #### [employer] [address] [place] [address] Die Grinder: Dario Almanza MD Cocaine Metabolite Negative Normal NEG [facility] Comment on above: Result Comment: Cuto ff: 300 ng/ml Performed By: #### U AMIC, MARIA D #### [employer] [address] [place] [phone] Die Grinder: Dario Almanza MD Fentanyl, Urine Negative Normal NEG [facility] Comment on above: Result Comment: Cuto ff: 5 ng/ml Performed By: #### U AMIC, MARIA D #### [address] [address] Die Grinder: Dario Almanza MD Methadone Ql (U) Negative Normal NEG [facility] Comment on above: Result Comment: Cuto ff: 300 ng/ml Performed By: #### U AMIC, MARIA D #### [address] [address] Die Grinder: Dario Almanza MD Opiate(s), Ur Negative Normal NEG [facility] Comment on above: Result Comment: Cuto ff: 300 ng/ml Performed By: #### U AMIC, MARIA D #### [address] [address] Die Grinder: Dario Almanza MD Oxycodone, Urine Negative Normal NEG [facility] Comment on above: Result Comment: Cuto ff: 100 ng/ml Performed By: #### U AMIC, MARIA D #### [facility] [employer] [address] [place] [phone] Die Grinder: Dario Almanza MD Phencyclidine, Ur Negative Normal NEG [facility] Comment on above: Result Comment: Cuto ff: 25 ng/ml Performed By: #### U AMIC, MARIA D #### [address] [address] Die Grinder: Dario Almanza MD Electrolyteson 07-14-2024 Anion gap [Moles/Vol] 9 mmol/L Normal 7-16 [facility] Chloride [Moles/Vol] 101 mmol/L Normal 98-107 [facility] CO2 [Moles/Vol] 32 mmol/L High 22-30 [facility] Potassium [Moles/Vol] 4.0 mmol/L Normal 3.5-4.5 [facility] Sodium [Moles/Vol] 141 mmol/L Normal 138-146 [facility] Glucose (POC)on 07-14-2024 Glucose [Mass/Vol] 172 mg/dL High 74-100 [facility] Hgb/Hct, POCon 07-14-2024 Hematocrit (Bld) [Volume fraction] 43 % Normal 41-53 [facility] Hemoglobin (Bld) [Mass/Vol] 14.8 g/dL Normal 13.5-17.5 [facility] Lactic Acidon 07-14-2024 Lactic Acid,Whole Bl 1.7 mmol/L Normal 0.7-2.1 [facility] Comment on above: Performed By: #### E DTOX, LACTIC #### [facility] [employer] [address] [place] [address] Die Grinder: Dario Almanza MD Lactic Acid (POC)on 07-14-20 24 Lactate [Moles/Vol] 2.8 mmol/L High 0.56-1.39 [facility] MRI BRAIN W WO CONTRASTon MRI [...] collection present. The proximal portions of the cap[place] band of Lopez demonstrate normal flow voids. ORBITS: [...] Edgar Montilla MD 07/14/24 Final result Normal [facility] Stroke Panelon 07-14-2024 Abs. Basophil 0.06 k/uL Normal 0.00-0.20 [facility] Comment on above: Performed By: #### Milan VILLANUEVA #### [place] [address] Die Grinder: Dario Almanza MD Abs.Imm.Granulocyte 0.00 k/uL Normal 0.00-0.30 [facility] Comment on above: Performed By: #### Milan VILLANUEVA #### [place] [address] Die Grinder: Dario Almanza MD Abs.Neutrophil (Seg) 5.40 k/uL Normal 1.50-8.10 [facility] Comment on above: Performed By: #### Milan VILLANUEVA #### [facility] [employer] [address] [place] [address] Die Grinder: Dario Almanza MD Basophils/100 WBC (Bld) 1 % Normal 0-2 [facility] Comment on above: Performed By: #### Milan VILLANUEVA #### [place] [address] Die Grinder: Dario Almanza MD Eosinophils (Bld) [#/Vol] 0.00 10*3/uL Normal 0.00-0.44 [facility] Comment on above: Performed By: #### S KAY #### [address] [address] Die Grinder: Dario Almanza MD Eosinophils/100 WBC (Bld) 0 % Low 1-4 [facility] Comment on above: Performed By: #### S TROKE #### [address] [address] Die Grinder: Dario Almanza MD Immature granulocytes/100 WBC (Bld) 0 % Normal 0 [facility] Comment on above: Performed By: #### S TROKE #### [address] [address] Die Grinder: Dario Almanza MD Lymphocytes (Bld) [#/Vol] 0.43 10*3/uL Low 1.10-3.70 [facility] Comment on above: Performed By: #### S TROKE #### [address] [address] Die Grinder: Dario Almanza MD Lymphocytes/100 WBC (Bld) 7 % Low 24-43 [facility] Comment on above: Performed By: #### S TROKE #### [address] [address] Die Grinder: Dario Almanza MD Monocytes (Bld) [#/Vol] 0.31 10*3/uL Normal 0.10-1.20 [facility] Comment on above: Performed By: #### S TROKE #### [address] [address] Die Grinder: Dario Almanza MD Monocytes/100 WBC (Bld) 5 % Normal 3-12 [facility] Comment on above: Performed By: #### S TROKE #### [address] [address] Die Grinder: Dario Almanza MD Morphology David (Bld) [Interp] Normal Normal [facility] Comment on above: Performed By: #### S TROKE #### [address] [address] Die Grinder: Dario Almanza MD Neutrophil (Seg) 87 % High 36-65 [facility] Comment on above: Performed By: #### S TROKE #### [address] [address] Die Grinder: Dario Almanza MD Anion gap [Moles/Vol] 8 mmol/L Low 9-16 [facility] Comment on above: Performed By: #### S TROKE #### [address] [address] Die Grinder: Dario Almanza MD Calcium [Mass/Vol] 8.5 mg/dL Low 8.6-10.4 [facility] Comment on above: Performed By: #### S TROKE #### [address] [address] Die Grinder: Dario Almanza MD Chloride [Moles/Vol] 102 mmol/L Normal 98-107 [facility] Comment on above: Performed By: #### S TROKE #### [address] [address] Die Grinder: Dario Almanza MD CK [Catalytic activity/Vol] 101 U/L Normal 39-308 [facility] Comment on above: Performed By: #### S TROKE #### [address] [address] Die Grinder: Dario Almanza MD CO2 [Moles/Vol] 27 mmol/L Normal 20-31 [facility] Comment on above: Performed By: #### S TROKE #### [address] [address] Die Grinder: Dario Almanza MD Creatinine [Mass/Vol] 1.1 mg/dL Normal 0.70-1.20 [facility] Comment on above: Performed By: #### S KAY #### [address] [address] Die Grinder: Dario Almanza MD GFR/1.73 sq M.predicted among non-blacks MDRD (S/P/Bld) [Vol rate/Area] 74 mL/min/{1.73_m2} Normal >60 [facility] Comment on above: Result Comment: These [...] secretion. Performed By: #### S KAY #### [facility] [employer] [address] [place] [phone] Die Grinder: Dario Almanza MD Glucose [Mass/Vol] 174 mg/dL High 74-99 [facility] Comment on above: Performed By: #### S KAY #### [facility] [employer] [address] [place] [address] Die Grinder: Dario Almanza MD Myoglobin [Mass/Vol] 106 ng/mL High 28-72 [facility] Comment on above: Performed By: #### S KAY #### [facility] [address] [place] [address] Die Grinder: Dario Almanza MD Potassium [Moles/Vol] 4.0 mmol/L Normal 3.7-5.3 [facility] Comment on above: Result Comment: SPEC IMEN SLIGHTLY HEMOLYZED, RESULTS MAY BE ADVERSELY AFFECTED. Performed By: #### S KAY #### [facility] [employer] [address] [place] [phone] Die Grinder: Dario Almanza MD Sodium [Moles/Vol] 137 mmol/L Normal 136-145 [facility] Comment on above: Performed By: #### S KAY #### [address] [address] Die Grinder: Dario Almanza MD Troponin, High Sens 24 ng/L High 0-22 [facility] Comment on above: Result Comment: High Sensitivity Troponin values cannot be compared with other Troponin methodologies. Performed By: #### S KYA #### [address] [address] Die Grinder: Dario Almanza MD Urea nitrogen [Mass/Vol] 16 mg/dL Normal 8-23 [facility] Comment on above: Performed By: #### S KAY #### [address] [address] Die Grinder: Dario Almanza MD aPTT Coag (Bld) [Time] 22.1 s Low 23.0-36.5 [facility] Comment on above: Result Comment: IV Heparin Therapy Range: 66.0-92.0 sec Performed By: #### S KAY #### [address] [address] Die Grinder: Dario Almanza MD INR Coag (PPP) [Relative time] 1.1 {INR} Normal [facility] Comment on above: Result Comment: Therapeutic Range: Moderate Anticoagulant Intensity: INR = 2.0-3.0 High Anticoagulant Intensity: INR = 2.5-3.5 Performed By: #### S KAY #### [address] [address] Die Grinder: Dario Almanza MD PT Coag (PPP) [Time] 13.6 s Normal 11.7-14.9 [facility] Comment on above: Performed By: #### S KAY #### [facility] [employer] [address] [place] [phone] Die Grinder: Dario lAmanza MD Erythrocyte distribution width (RBC) [Ratio] 13.2 % Normal 11.8-14.4 [facility] Comment on above: Performed By: #### S TROKE #### [address] [address] Die Grinder: Dario Almanza MD Hematocrit (Bld) [Volume fraction] 42.4 % Normal 40.7-50.3 [facility] Comment on above: Performed By: #### S TROKE #### [address] [address] Die Grinder: Dario Almanza MD Hemoglobin (Bld) [Mass/Vol] 13.9 g/dL Normal 13.0-17.0 [facility] Comment on above: Performed By: #### S TROKE #### [address] [address] Die Grinder: Dario Almanza MD MCH (RBC) [Entitic mass] 29.6 pg Normal 25.2-33.5 [facility] Comment on above: Performed By: #### S TROKE #### [address] [address] Die Grinder: Dario Almanza MD MCHC (RBC) [Mass/Vol] 32.8 g/dL Normal 28.4-34.8 [facility] Comment on above: Performed By: #### S TROKE #### [address] [address] Die Grinder: Dario Almanza MD MCV (RBC) [Entitic vol] 90.2 fL Normal 82.6-102.9 [facility] Comment on above: Performed By: #### S TROKE #### [address] [address] Die Grinder: Dario Almanza MD NRBC Automated 0.0 per 100 WBC Normal 0.0 [facility] Comment on above: Performed By: #### S TITUSKE #### [address] [address] Die Grinder: Dario Almanza MD Platelet mean volume (Bld) [Entitic vol] 9.3 fL Normal 8.1-13.5 [facility] Comment on above: Performed By: #### S TITUSKE #### [address] [address] Die Grinder: Dario Almanza MD Platelets (Bld) [#/Vol] 267 10*3/uL Normal 138-453 [facility] Comment on above: Performed By: #### S KAY #### [address] [address] Die Grinder: Dario Almanza MD RBC (Bld) [#/Vol] 4.70 10*6/uL Normal 4.21-5.77 [facility] Comment on above: Performed By: #### S TITUSKE #### [address] [address] Die Grinder: Dario Almanza MD WBC (Bld) [#/Vol] 6.2 10*3/uL Normal 3.5-11.3 [facility] Comment on above: Performed By: #### S TITUSKE #### [address] [address] Die Grinder: Dario Almanza MD TSH w/reflex to FT4on 2023 Thyroid Stim. Horm. 1.44 uIU/mL Normal 0.27-4.20 [facility] Comment on above: Performed By: #### T SHX ####[address] [phone] Director: Dario Almanza MD Tox Scr, Bld, EDon 4 Acetaminophen [Mass/Vol] ug/mL Low 10-30 [facility] Comment on above: Performed By: #### E DTOX, LACTIC #### [address] [address] Die Grinder: Dario Almanza MD Ethanol [Mass/Vol] mg/dL Normal <10 [facility] Comment on above: Performed By: #### E DTOX, LACTIC #### [address] [address] Die Grinder: Dario Almanza MD Ethanol percent <0.010 Normal <0.010 [facility] Comment on above: Performed By: #### E DTOX, LACTIC #### [address] [address] Die Grinder: Dario Almanza MD Salicylate <0.5 Normal 0.0-10.0 [facility] Comment on above: Performed By: #### E DTOX, LACTIC #### [address] [address] Die Grinder: Dario Almanza MD Urinalysis w/ Microon 8 Bacteria None Normal NONE [facility] Comment on above: Performed By: #### U AMIC, MARIA D #### [address] [address] Die Grinder: Dario Almanza MD Bilirubin, SemiQt,Ur Negative Normal NEG [facility] Comment on above: Performed By: #### U AMIC, MARIA D #### [address] [address] Die Grinder: Dario Almanza MD Blood, Urine Negative Normal NEG [facility] Comment on above: Performed By: #### U AMIC, MARIA D #### [facility] [employer] [address] [place] [phone] Die Grinder: Dario Almanza MD Casts 5 TO 10 HYALINE Normal 0-8 [facility] Comment on above: Result Comment: Refe rence range defined for non-centrifuged specimen. Performed By: #### U AMIC, MARIA D #### [facility] [employer] [address] [place] [phone] Die Grinder: Dario Almanza MD Clarity (U) Clear Normal CLEAR [facility] Comment on above: Performed By: #### U AMIC, MARIA D #### [facility] [employer] [address] [place] [address] Die Grinder: Dario Almanza MD Color (U) Yellow Normal YEL [facility] Comment on above: Performed By: #### U AMIC, MARIA D #### [address] [address] Die Grinder: Dario Almanza MD Epithelial cells LM Ql (Urine sed) 0 TO 2 Normal 0-5 [facility] Comment on above: Performed By: #### U AMIC, MARIA D #### [facility] [employer] [address] [place] [phone] Die Grinder: Dario Almanza MD Glucose Ql (U) 1+ mg/dL Abnormal NEG [facility] Comment on above: Performed By: #### U AMIC, MARIA D #### [facility] [employer] [address] [place] [address] Die Grinder: Dario Almanza MD Ketones Ql (U) Negative Normal NEG [facility] Comment on above: Performed By: #### U AMIC, MARIA D #### [facility] [employer] [address] [place] [address] Die Grinder: Dario Almanza MD Leukocyte esterase Test strip Ql (U) Negative Normal NEG [facility] Comment on above: Performed By: #### U AMIC, MARIA D #### [address] [address] Die Grinder: Dario Almanza MD Nitrite,Ur Negative Normal NEG [facility] Comment on above: Performed By: #### U AMIC, MARIA D #### [address] [address] Die Grinder: Dario Almanza MD PH,Ur 7.0 Normal 5.0-8.0 [facility] Comment on above: Performed By: #### U AMIC, MARIA D #### [address] [address] Die Grinder: Dario Almanza MD Protein Ql (U) 1+ mg/dL Abnormal NEG [facility] Comment on above: Performed By: #### U AMIC, MARIA D #### [address] [address] Die Grinder: Dario Almanza MD Spec. [place],Ur 1.044 High 1.005-1.030 [facility] Comment on above: Performed By: #### U AMIC, MARIA D #### [address] [address] Die Grinder: Dario Almanza MD Urine RBC's 0 TO 2 Normal 0-4 [facility] Comment on above: Result Comment: Refe rence range defined for non-centrifuged specimen. Performed By: #### U AMIC, MARIA D #### [address] [address] Die Grinder: Dario Almanza MD Urine WBC's None Normal 0-5 [facility] Comment on above: Performed By: #### U AMIC, MARIA D #### [address] [address] Die Grinder: Dario Almanza MD Urobilinogen,Ur Normal Normal 0.0-1.0 [facility] Comment on above: Performed By: #### U AMI, MARIA D #### [facility] [place] [id number] Die Grinder: Dario Almanza MD Venous Bld Gas,POCon 024 HCO3 (Bld) [Moles/Vol] 31.9 mmol/L High 22.0-29.0 [facility] Oxygen saturation in Blood 45.4 % Low 60.0-85.0 [facility] pCO2, Venous 47.5 mm Hg Normal 41.0-51.0 [facility] pH,Venous 7.435 High 7.320-7.430 [facility] pO2, Venous 24.6 mm Hg Low 30.0-50.0 [facility] Positive Base Excess (calc) 6.4 mmol/L High 0.0-3.0 [facility] XR ABDOMEN (KUB) (SINGLE AP VIEW)on [...] Jt Gray MD 07/14/24 Final result Normal [facility] XR CHEST PORTABLEon 07-14-20 XR CHEST [...] Basil Witt DO 07/14/24 Final result Normal [facility] Basic Metabolic Panelon 04-14 Creatinine Clr Calc Pharmacy 82.90 Normal [facility] Comment on above: Result Comment: PERF ORMED BY: [place] [address] PATHOLOGIST ROASTER SUPERVISOR ULISES MILLS M.D. Performed By: #### C BC, PT, PTT, CK, HS TROP, CMP, PRL #### [address] GFR/1.73 sq M.predicted MDRD (S/P/Bld) [Vol rate/Area] mL/min/{1.73_m2} Normal [facility] Comment on above: Performed By: #### C BC, PT, PTT, CK, HS TROP, CMP, PRL #### [place] [address] [place] Calcium [Mass/volume] in Ser um or PlasmaOrdered By: Janae Jose on 05-05-2024 Calcium [Mass/Vol] 9.0 mg/dL Normal 8.6-10.3 [facility] Comment on above: Performed By: #### C BC, PT, PTT, CK, HS TROP, CMP, PRL #### [place] [id number] [place] Carbon dioxide, total [Moles /volume] in Serum or PlasmaOrdered By: Janae Jose on 05-05-2024 CO2 [Moles/Vol] 30.3 mmol/L Normal 21.0-31.0 [facility] Comment on above: Performed By: #### C BC, PT, PTT, CK, HS TROP, CMP, PRL #### [place] [address] [place] Chloride [Moles/volume] in S andrei or PlasmaOrdered By: Janae Jose on 05-05-2024 Chloride [Moles/Vol] 98 mmol/L Normal 98-107 [facility] Comment on above: Performed By: #### C BC, PT, PTT, CK, HS TROP, CMP, PRL #### [facility] [address] Creatinine [Mass/volume] in Serum or PlasmaOrdered By: Janae Jose on 05-05-2024 Creatinine [Mass/Vol] 0.97 mg/dL Normal 0.70-1.30 [facility] Comment on above: Performed By: #### C BC, PT, PTT, CK, HS TROP, CMP, PRL #### [facility] [address] Glucose [Mass/volume] in Ser um or PlasmaOrdered By: Janae Jose on 05-05-2024 Glucose [Mass/Vol] 105 mg/dL High 70-100 [facility] Comment on above: ADA recommended refe rence rangeRandom Glucose Reference Range is dependent on time and content of last meal. Glucose of more than 200 mg/dL in a nonstressed, ambulatory subject supports the diagnosis of Diabetes Mellitus. Result Comment: [place] om Glucose Reference Range is dependent on time and content of last meal. Glucose of more than 200 mg/dL in a nonstressed, ambulatory subject supports the diagnosis of Diabetes Mellitus. ADA recommended reference range Performed By: #### C BC, PT, PTT, CK, HS TROP, CMP, PRL #### [facility] [address] No Panel InformationOrdered By: Janae Jose on 05-05-2024 Estimated GFR (CKD-EPI) > 60.0 mL/Min [facility] Creatinine Clearance (Chem 82.90 [facility] Potassium [Moles/volume] in Serum or PlasmaOrdered By: Janae Jose on 05-05-2024 Potassium [Moles/Vol] 4.4 mmol/L Normal 3.5-5.1 [facility] Comment on above: Performed By: #### C BC, PT, PTT, CK, HS TROP, CMP, PRL #### [facility] [address] Serum or plasma anion gap de terminationOrdered By: Janae Jose on 05-05-2024 Anion gap [Moles/Vol] 8.1 mmol/L Normal 6.0-15.0 [facility] Comment on above: Performed By: #### C BC, PT, PTT, CK, HS TROP, CMP, PRL #### [address] Sodium [Moles/volume] in Ser um or PlasmaOrdered By: Janae Jose on 05-05-2024 Sodium [Moles/Vol] 132 mmol/L Low 136-145 [facility] Comment on above: Performed By: #### C BC, PT, PTT, CK, HS TROP, CMP, PRL #### [address] Urea nitrogen [Mass/volume] in Serum or PlasmaOrdered By: Janae Jose on 05-05-2024 Urea nitrogen [Mass/Vol] 25 mg/dL Normal 7-25 [facility] Comment on above: Performed By: #### C BC, PT, PTT, CK, HS TROP, CMP, PRL #### [address] Ammonia [Moles/volume] in Pl asmaOrdered By: Víctor Agrawal on 05-04-2024 Ammonia (P) [Moles/Vol] 22 umol/L Normal 11-35 [facility] Comment on above: Result Comment: PERF ORMED BY: [place] [address] PATHOLOGIST ROASTER SUPERVISOR ULISES MILLS M.D. Performed By: #### C BC, PT, PTT, CK, HS TROP, CMP, PRL #### [address] Automated basophil %Ordered By: Magdy Douglass on 05-04-2024 Basophils/100 WBC (Bld) 0.1 % Normal . [facility] Comment on above: Performed By: #### C BC, PT, PTT, CK, HS TROP, CMP, PRL #### [address] Automated basophil countOrde red By: Magdy Douglass on 05-04-2024 Basophils (Bld) [#/Vol] 0.0 10*3/uL Normal 0.0-0.2 [facility] Comment on above: Result Comment: PERF ORMED BY: [place] [address] PATHOLOGIST ROASTER SUPERVISOR ULISES MILLS M.D. Performed By: #### C BC, PT, PTT, CK, HS TROP, CMP, PRL #### [address] Automated blood monocyte cou ntOrdered By: Magdy Douglass on 05-04-2024 Monocytes (Bld) [#/Vol] 0.3 10*3/uL Normal 0.0-0.8 [facility] Comment on above: Performed By: #### C BC, PT, PTT, CK, HS TROP, CMP, PRL #### [address] Automated eosinophil %Ordere d By: Magdy Douglass on 05-04-2024 Eosinophils/100 WBC (Bld) 0.0 % Normal . [facility] Comment on above: Performed By: #### C BC, PT, PTT, CK, HS TROP, CMP, PRL #### [address] Automated eosinophil countOr dered By: Magdy Douglass on 05-04-2024 Eosinophils (Bld) [#/Vol] 0.0 10*3/uL Normal 0.0-0.45 [facility] Comment on above: Performed By: #### C BC, PT, PTT, CK, HS TROP, CMP, PRL #### [address] Automated monocyte %Ordered By: Magdy Douglass on 05-04-2024 Monocytes/100 WBC (Bld) 3.0 % Normal . [facility] Comment on above: Performed By: #### C BC, PT, PTT, CK, HS TROP, CMP, PRL #### [facility] [address] Automated neutrophil %Ordere d By: Magdy Douglass on 05-04-2024 Neutrophils/100 WBC (Bld) 92.0 % Normal . [facility] Comment on above: Performed By: #### C BC, PT, PTT, CK, HS TROP, CMP, PRL #### [facility] [address] Basic Metabolic Panelon 04-14 Anion gap [Moles/Vol] 11.4 mmol/L Normal 6.0-15.0 [facility] Comment on above: Performed By: #### C BC, PT, PTT, CK, HS TROP, CMP, PRL #### [facility] [address] Calcium [Mass/Vol] 9.6 mg/dL Normal 8.6-10.3 [facility] Comment on above: Performed By: #### C BC, PT, PTT, CK, HS TROP, CMP, PRL #### [facility] [address] Chloride [Moles/Vol] 93 mmol/L Low 98-107 [facility] Comment on above: Performed By: #### C BC, PT, PTT, CK, HS TROP, CMP, PRL #### [facility] [address] CO2 [Moles/Vol] 30.9 mmol/L Normal 21.0-31.0 [facility] Comment on above: Performed By: #### C BC, PT, PTT, CK, HS TROP, CMP, PRL #### [facility] [address] Creatinine [Mass/Vol] 0.88 mg/dL Normal 0.70-1.30 [facility] Comment on above: Performed By: #### C BC, PT, PTT, CK, HS TROP, CMP, PRL #### [address] Creatinine Clr Calc Pharmacy 91.86 Normal [facility] Comment on above: Performed By: #### C BC, PT, PTT, CK, HS TROP, CMP, PRL #### [facility] [address] GFR/1.73 sq M.predicted MDRD (S/P/Bld) [Vol rate/Area] mL/min/{1.73_m2} Normal [facility] Comment on above: Performed By: #### C BC, PT, PTT, CK, HS TROP, CMP, PRL #### [address] Glucose [Mass/Vol] 107 mg/dL High 70-100 [facility] Comment on above: Result Comment: [facility] Glucose Reference Range is dependent on time and content of last meal. Glucose of more than 200 mg/dL in a nonstressed, ambulatory subject supports the diagnosis of Diabetes Mellitus. ADA recommended reference range Performed By: #### C BC, PT, PTT, CK, HS TROP, CMP, PRL #### [address] Potassium [Moles/Vol] 4.3 mmol/L Normal 3.5-5.1 [facility] Comment on above: Performed By: #### C BC, PT, PTT, CK, HS TROP, CMP, PRL #### [address] Sodium [Moles/Vol] 131 mmol/L Low 136-145 [facility] Comment on above: Performed By: #### C BC, PT, PTT, CK, HS TROP, CMP, PRL #### [place] [address] [place] Urea nitrogen [Mass/Vol] 19 mg/dL Normal 7-25 [facility] Comment on above: Performed By: #### C BC, PT, PTT, CK, HS TROP, CMP, PRL #### [address] Complete Blood Count Auto Di ffon 05-04-2024 Mean Corpuscular HGB Conc 32.9 g/dL Normal 32.5-35.6 [facility] Comment on above: Performed By: #### C BC, PT, PTT, CK, HS TROP, CMP, PRL #### [address] NRBC% 0.0 /100{WBC} Normal 0-0.5 [facility] Comment on above: Performed By: #### C BC, PT, PTT, CK, HS TROP, CMP, PRL #### [address] Erythrocyte distribution wid th [Ratio] by Automated countOrdered By: Magdy Douglass on 05-04-2024 Erythrocyte distribution width (RBC) [Ratio] 16.5 % High 12.0-14.8 [facility] Comment on above: Performed By: #### C BC, PT, PTT, CK, HS TROP, CMP, PRL #### [address] Erythrocytes [#/volume] in B lood by Automated countOrdered By: Magdy Douglass on 05-04-2024 RBC (Bld) [#/Vol] 4.97 10*6/uL Normal 3.90-5.60 [facility] Comment on above: Performed By: #### C BC, PT, PTT, CK, HS TROP, CMP, PRL #### [address] Folate [Mass/volume] in Seru m or PlasmaOrdered By: Janae Jose on 05-04-2024 Folate [Mass/Vol] 9.7 ng/mL >5.9 [facility] Comment on above: Folate reference ran ge: >5.9 ng/mlThe WHO technical consultation on folate and vitamin [id number] has determined that folate concentrations lessthan 4 ng/ml are considered deficient. Hematocrit [Volume Fraction] of Blood by Automated countOrdered By: Magdy Douglass on 05-04-2024 Hematocrit (Bld) [Volume fraction] 45.0 % Normal 38.8-50.0 [facility] Comment on above: Performed By: #### C BC, PT, PTT, CK, HS TROP, CMP, PRL #### [facility] [address] Hemoglobin [Mass/volume] in BloodOrdered By: Magdy Douglass on 05-04-2024 Hemoglobin (Bld) [Mass/Vol] 14.8 g/dL Normal 13.0-17.0 [facility] Comment on above: Performed By: #### C BC, PT, PTT, CK, HS TROP, CMP, PRL #### [facility] [address] Leukocytes [#/volume] correc srinivas for nucleated erythrocytes in Blood by Automated counOrdered By: Magdy Douglass on 05-04-2024 WBC corrected for nucl RBC Auto (Bld) [#/Vol] 9.6 10*3/uL 4.1-10.5 [facility] Leukocytes [#/volume] in Blo od by Automated countOrdered By: Magdy Douglass on 05-04-2024 WBC (Bld) [#/Vol] 9.6 10*3/uL Normal 4.1-10.5 [facility] Comment on above: Performed By: #### C BC, PT, PTT, CK, HS TROP, CMP, PRL #### [address] Lymphocytes [#/volume] in Bl ood by Automated countOrdered By: Magdy Douglass on 05-04-2024 Lymphocytes (Bld) [#/Vol] 0.5 10*3/uL Low 1.00-4.8 [facility] Comment on above: Performed By: #### C BC, PT, PTT, CK, HS TROP, CMP, PRL #### [place] [address] [place] Lymphocytes/100 leukocytes i n Blood by Automated countOrdered By: Magdy Douglass on 05-04-2024 Lymphocytes/100 WBC (Bld) 4.9 % Normal . [facility] Comment on above: Performed By: #### C BC, PT, PTT, CK, HS TROP, CMP, PRL #### [address] MCH [Entitic mass] by Automa srinivas countOrdered By: Magdy Douglass on 05-04-2024 MCH (RBC) [Entitic mass] 29.8 pg Normal 27.5-35.2 [facility] Comment on above: Performed By: #### C BC, PT, PTT, CK, HS TROP, CMP, PRL #### [address] MCHC Auto (RBC) [Mass/Vol]Or dered By: Magdy Douglass on 05-04-2024 MCHC (RBC) [Mass/Vol] 32.9 g/dL 32.5-35.6 [facility] MCV [Entitic volume] by Auto mated countOrdered By: Magdy Douglass on 05-04-2024 MCV (RBC) [Entitic vol] 90.4 fL Normal 83.5-101 [facility] Comment on above: Performed By: #### C BC, PT, PTT, CK, HS TROP, CMP, PRL #### [address] Neutrophils [#/volume] in Bl ood by Automated countOrdered By: Magdy Douglass on 05-04-2024 Neutrophils (Bld) [#/Vol] 8.9 10*3/uL High 1.8-7.7 [facility] Comment on above: Performed By: #### C BC, PT, PTT, CK, HS TROP, CMP, PRL #### [address] Nucleated erythrocytes [Pres ence] in Blood by Automated countOrdered By: Magdy Douglass on 05-04-2024 Nucleated RBC Auto Ql (Bld) 0.0 /100{WBC} 0-0.5 [facility] Platelet mean volume [Entiti c volume] in Blood by Automated countOrdered By: Magdy Douglass on 05-04-2024 Platelet mean volume (Bld) [Entitic vol] 6.5 fL Low 6.6-10.1 [facility] Comment on above: Performed By: #### C BC, PT, PTT, CK, HS TROP, CMP, PRL #### [address] Platelets [#/volume] in Bloo d by Automated countOrdered By: Magdy Douglass on 05-04-2024 Platelets (Bld) [#/Vol] 417 10*3/uL Normal 150-450 [facility] Comment on above: Performed By: #### C BC, PT, PTT, CK, HS TROP, CMP, PRL #### [address] Thyrotropin [Units/volume] i n Serum or PlasmaOrdered By: Janae Jose on 05-04-2024 TSH Qn 5.50 m[IU]/L High 0.45-5.33 [facility] Comment on above: Result Comment: PERF ORMED BY: [place] [address] PATHOLOGIST [employer]PER[employer] ULISES MILLS M.D. Performed By: #### C BC, PT, PTT, CK, HS TROP, CMP, PRL #### [address] Vit. B12/Folate Profileon Folate 9.7 ng/mL Normal >5.9 [facility] Comment on above: Result Comment: Evelyn te reference range: >5.9 ng/ml The WHO technical consultation on folate and vitamin b12 deficiencies has determined that folate concentrations less than 4 ng/ml are considered deficient. Performed By: #### C BC, PT, PTT, CK, HS TROP, CMP, PRL #### [address] Vitamin B12 ser/plasOrdered By: Janae Jose on 05-04-2024 Cobalamin (Vitamin B12) [Mass/Vol] 500 pg/mL Normal 180-914 [facility] Comment on above: Performed By: #### C BC, PT, PTT, CK, HS TROP, CMP, PRL #### [address] Alanine aminotransferase [En zymatic activity/volume] in Serum or PlasmaOrdered By: Magdy Douglass on 05-03-2024 ALT [Catalytic activity/Vol] 14 U/L Normal 7-52 [facility] Comment on above: Performed By: #### C BC, PT, PTT, CK, HS TROP, CMP, PRL #### [facility] [address] Albumin [Mass/volume] in Ser um or Plasma by Bromocresol green (BCG) dye binding methoOrdered By: Magdy Douglass on 05-03-2024 Albumin BCG dye [Mass/Vol] 3.1 g/dL 3.5-5.7 [facility] Alkaline phosphatase [Enzyma tic activity/volume] in Serum or PlasmaOrdered By: Magdy Douglass on 05-03-2024 ALP [Catalytic activity/Vol] 131 U/L High 34-104 [facility] Comment on above: Performed By: #### C BC, PT, PTT, CK, HS TROP, CMP, PRL #### [address] Aspartate aminotransferase [ Enzymatic activity/volume] in Serum or PlasmaOrdered By: Magdy Douglass on 05-03-2024 AST [Catalytic activity/Vol] 12 U/L Low 13-39 [facility] Comment on above: Performed By: #### C BC, PT, PTT, CK, HS TROP, CMP, PRL #### [address] Bilirubin.total [Mass/volume ] in Serum or PlasmaOrdered By: Magdy Douglass on 05-03-2024 Bilirubin [Mass/Vol] 0.4 mg/dL Normal 0.3-1.0 [facility] Comment on above: Performed By: #### C BC, PT, PTT, CK, HS TROP, CMP, PRL #### [address] head/brain wo albert 05-03 CT head/brain wo [facility] [place] [address] CT Scan Report Signed Patient: Aaron Olivarez MR#: [id number] 00 : 1960 Acct:[id number] Age/Sex: 63 / M ADM Date: 05/01/24 Loc: Room: 6Z9916-7 Type: ADM IN Attending Dr: Janae Jose [...] Velázquez Jr., D.OJeremi05/03/2024 4:20 PM Dictation Location: [place] [address] Transcribed By: [facility] 05/03/24 1620 Dictated By: Patricio Velázquez Jr, DO 05/03/24 1618 Signed By: 05/03/24 1620 Normal [facility] Complete Blood Count Auto Di ffon 05-03-2024 Basophils (Bld) [#/Vol] 0.0 10*3/uL Normal 0.0-0.2 [facility] Comment on above: Result Comment: PERF ORMED BY: [place] [address] PATHOLOGIST [employer]PER[employer] ULISES MILLS M.D. Performed By: #### C BC, PT, PTT, CK, HS TROP, CMP, PRL #### [address] Basophils/100 WBC (Bld) 0.3 % Normal . [facility] Comment on above: Performed By: #### C BC, PT, PTT, CK, HS TROP, CMP, PRL #### [address] Eosinophils (Bld) [#/Vol] 0.0 10*3/uL Normal 0.0-0.45 [facility] Comment on above: Performed By: #### C BC, PT, PTT, CK, HS TROP, CMP, PRL #### [address] Eosinophils/100 WBC (Bld) 0.0 % Normal . [facility] Comment on above: Performed By: #### C BC, PT, PTT, CK, HS TROP, CMP, PRL #### [address] Erythrocyte distribution width (RBC) [Ratio] 16.0 % High 12.0-14.8 [facility] Comment on above: Performed By: #### C BC, PT, PTT, CK, HS TROP, CMP, PRL #### [address] Hematocrit (Bld) [Volume fraction] 40.0 % Normal 38.8-50.0 [facility] Comment on above: Performed By: #### C BC, PT, PTT, CK, HS TROP, CMP, PRL #### [address] Hemoglobin (Bld) [Mass/Vol] 13.4 g/dL Normal 13.0-17.0 [facility] Comment on above: Performed By: #### C BC, PT, PTT, CK, HS TROP, CMP, PRL #### [address] Lymphocytes (Bld) [#/Vol] 0.4 10*3/uL Low 1.00-4.8 [facility] Comment on above: Performed By: #### C BC, PT, PTT, CK, HS TROP, CMP, PRL #### [address] Lymphocytes/100 WBC (Bld) 4.7 % Normal . [facility] Comment on above: Performed By: #### C BC, PT, PTT, CK, HS TROP, CMP, PRL #### [address] MCH (RBC) [Entitic mass] 30.1 pg Normal 27.5-35.2 [facility] Comment on above: Performed By: #### C BC, PT, PTT, CK, HS TROP, CMP, PRL #### [address] MCV (RBC) [Entitic vol] 90.1 fL Normal 83.5-101 [facility] Comment on above: Performed By: #### C BC, PT, PTT, CK, HS TROP, CMP, PRL #### [address] Mean Corpuscular HGB Conc 33.5 g/dL Normal 32.5-35.6 [facility] Comment on above: Performed By: #### C BC, PT, PTT, CK, HS TROP, CMP, PRL #### [address] Monocytes (Bld) [#/Vol] 0.2 10*3/uL Normal 0.0-0.8 [facility] Comment on above: Performed By: #### C BC, PT, PTT, CK, HS TROP, CMP, PRL #### [address] Monocytes/100 WBC (Bld) 2.4 % Normal . [facility] Comment on above: Performed By: #### C BC, PT, PTT, CK, HS TROP, CMP, PRL #### [address] Neutrophils (Bld) [#/Vol] 7.2 10*3/uL Normal 1.8-7.7 [facility] Comment on above: Performed By: #### C BC, PT, PTT, CK, HS TROP, CMP, PRL #### [address] Neutrophils/100 WBC (Bld) 92.6 % Normal . [facility] Comment on above: Performed By: #### C BC, PT, PTT, CK, HS TROP, CMP, PRL #### [address] NRBC% 0.0 /100{WBC} Normal 0-0.5 [facility] Comment on above: Performed By: #### C BC, PT, PTT, CK, HS TROP, CMP, PRL #### [address] Platelet mean volume (Bld) [Entitic vol] 6.3 fL Low 6.6-10.1 [facility] Comment on above: Performed By: #### C BC, PT, PTT, CK, HS TROP, CMP, PRL #### [address] Platelets (Bld) [#/Vol] 328 10*3/uL Normal 150-450 [facility] Comment on above: Performed By: #### C BC, PT, PTT, CK, HS TROP, CMP, PRL #### [address] RBC (Bld) [#/Vol] 4.44 10*6/uL Normal 3.90-5.60 [facility] Comment on above: Performed By: #### C BC, PT, PTT, CK, HS TROP, CMP, PRL #### [address] WBC (Bld) [#/Vol] 7.7 10*3/uL Normal 4.1-10.5 [facility] Comment on above: Performed By: #### C BC, PT, PTT, CK, HS TROP, CMP, PRL #### [address] Comprehensive Metabolic Pane wilner 05-03-2024 Albumin [Mass/Vol] 3.1 g/dL Low 3.5-5.7 [facility] Comment on above: Performed By: #### C BC, PT, PTT, CK, HS TROP, CMP, PRL #### [address] Anion gap [Moles/Vol] 4.4 mmol/L Low 6.0-15.0 [facility] Comment on above: Performed By: #### C BC, PT, PTT, CK, HS TROP, CMP, PRL #### [address] Calcium [Mass/Vol] 8.8 mg/dL Normal 8.6-10.3 [facility] Comment on above: Performed By: #### C BC, PT, PTT, CK, HS TROP, CMP, PRL #### [address] Chloride [Moles/Vol] 93 mmol/L Low 98-107 [facility] Comment on above: Performed By: #### C BC, PT, PTT, CK, HS TROP, CMP, PRL #### [address] CO2 [Moles/Vol] 40.3 mmol/L High 21.0-31.0 [facility] Comment on above: Performed By: #### C BC, PT, PTT, CK, HS TROP, CMP, PRL #### [address] Creatinine [Mass/Vol] 0.88 mg/dL Normal 0.70-1.30 [facility] Comment on above: Performed By: #### C BC, PT, PTT, CK, HS TROP, CMP, PRL #### [address] Creatinine Clr Calc Pharmacy 91.86 Normal [facility] Comment on above: Result Comment: PERF ORMED BY: [place] [address] PATHOLOGIST [employer] SUPERVIS[employer] ULISES MILLS M.D. Performed By: #### C BC, PT, PTT, CK, HS TROP, CMP, PRL #### [place] [address] [place] GFR/1.73 sq M.predicted MDRD (S/P/Bld) [Vol rate/Area] mL/min/{1.73_m2} Normal [facility] Comment on above: Performed By: #### C BC, PT, PTT, CK, HS TROP, CMP, PRL #### [address] Glucose [Mass/Vol] 112 mg/dL High 70-100 [facility] Comment on above: Result Comment: [facility] Glucose Reference Range is dependent on time and content of last meal. Glucose of more than 200 mg/dL in a nonstressed, ambulatory subject supports the diagnosis of Diabetes Mellitus. ADA recommended reference range Performed By: #### C BC, PT, PTT, CK, HS TROP, CMP, PRL #### [address] Potassium [Moles/Vol] 4.7 mmol/L Normal 3.5-5.1 [facility] Comment on above: Performed By: #### C BC, PT, PTT, CK, HS TROP, CMP, PRL #### [address] Sodium [Moles/Vol] 133 mmol/L Low 136-145 [facility] Comment on above: Performed By: #### C BC, PT, PTT, CK, HS TROP, CMP, PRL #### [address] Urea nitrogen [Mass/Vol] 20 mg/dL Normal 7-25 [facility] Comment on above: Performed By: #### C BC, PT, PTT, CK, HS TROP, CMP, PRL #### [address] ECG 12 lead ECGon 05-03-2024 ECG 12 lead ECG [facility] [place] [address] Electrocardiograph Report Signed Patient: Aaron Olivarez MR#: [id number] 00 : 1960 Acct:[id number] Age/Sex: 63 / M ADM Date: 05/01/24 Loc: Room: [address] [place] [address] Type: ADM IN Attending Dr: Janae Jose [...] Referred By: Electronically Signed By:YASMINE KIDD MD [facility] Transcribed By: MUS Signed By Yasmine Kidd MD, [facility] 05/03/24 1735 Normal [facility] echo transthoracicon [facility] echo transthoracic [facility] [place] [address] [place] [address] Echocardiogram Signed Patient: Aaron Olivarez MR#: [id number] 00 : 1960 Acct:[id number] Age/Sex: 63 / M ADM Date: 05/01/24 Loc: Room: [address] [place] [address] Type: ADM IN Attending Dr: Janae Jose MD Ordering Provider: Janae Jose MD Date of Service: 05/02/24 [facility] echo transthoracic: evaluate lv function Copies to: Yasmine Kidd MD, [facility] Janae Jose MD BSA: 2.0 m2 BP: [...] cm/sec LV V1 VTI: 22.1 cm ___ Electronically signed by: YASMINE KIDD MD, [facility] on 05/03/2024 03:24 PM Transcribed By: SCV Performed At: 05/03/24 0946 Signed By: Yasmine Kidd MD, [facility] 05/03/24 1524 Normal [facility] Protein [Mass/volume] in Ser um or PlasmaOrdered By: Magdy Douglass on 05-03-2024 Protein [Mass/Vol] 5.9 g/dL Low 6.4-8.9 [facility] Comment on above: Performed By: #### C BC, PT, PTT, CK, HS TROP, CMP, PRL #### [facility] [address] [place] [address] [place] Serum globulin measurement b y calculation (mass/volume)Ordered By: Magdy Douglass on 05-03-2024 Globulin (S) [Mass/Vol] 2.8 g/dL [facility] Comment on above: Performed By: #### C BC, PT, PTT, CK, HS TROP, CMP, PRL #### [facility] [address] Serum or plasma albumin/glob ulin mass ratioOrdered By: Magdy Douglass on 05-03-2024 Albumin/Globulin [Mass ratio] 1.1 {ratio} Normal [facility] Comment on above: Performed By: #### C BC, PT, PTT, CK, HS TROP, CMP, PRL #### [place] [id number] [facility] XR chest 1V portableon 05-03 XR chest 1V portable [facility] Main [place] [address] [place] [address] XRay Report Signed Patient: Aaron Olivarez MR#: [id number] 00 : 1960 Acct:[id number] Age/Sex: 63 / M ADM Date: 05/01/24 Loc: Room: [address] [place] [address] Type: ADM IN Attending Dr: Janae Jose [...] Velázquez Jr., D.O.05/03/2024 10:40 AM Dictation Location: [place] [address] Transcribed By: [facility] 05/03/24 1040 Dictated By: Patricio Velázquez Jr, DO 05/03/24 1038 Signed By: 05/03/24 1040 Normal [facility] C reactive protein [Mass/vol ume] in Serum or PlasmaOrdered By: Magdy Douglass on 05-02-2024 CRP [Mass/Vol] 2.5 mg/dL 0.0-0.5 [facility] C-Reactive Proteinon 024 C-Reactive Protein 2.5 mg/dL High 0.0-0.5 [facility] Comment on above: Result Comment: PERF ORMED BY: [place] [address] PATHOLOGIST [employer] SUPERVIS[employer] ULISES MILLS M.D. Performed By: #### C BC, PT, PTT, CK, HS TROP, CMP, PRL #### [address] Complete Blood Count Auto Di ffon 05-02-2024 Basophils (Bld) [#/Vol] 0.0 10*3/uL Normal 0.0-0.2 [facility] Comment on above: Result Comment: PERF ORMED BY: [place] [address] PATHOLOGIST RO[employer] SUPERVIS[employer] ULISES MILLS M.D. Performed By: #### C BC, PT, PTT, CK, HS TROP, CMP, PRL #### [address] Basophils/100 WBC (Bld) 0.2 % Normal . [facility] Comment on above: Performed By: #### C BC, PT, PTT, CK, HS TROP, CMP, PRL #### [address] Eosinophils (Bld) [#/Vol] 0.0 10*3/uL Normal 0.0-0.45 [facility] Comment on above: Performed By: #### C BC, PT, PTT, CK, HS TROP, CMP, PRL #### [address] Eosinophils/100 WBC (Bld) 0.0 % Normal . [facility] Comment on above: Performed By: #### C BC, PT, PTT, CK, HS TROP, CMP, PRL #### [address] Erythrocyte distribution width (RBC) [Ratio] 15.5 % High 12.0-14.8 [facility] Comment on above: Performed By: #### C BC, PT, PTT, CK, HS TROP, CMP, PRL #### [address] Hematocrit (Bld) [Volume fraction] 37.0 % Low 38.8-50.0 [facility] Comment on above: Performed By: #### C BC, PT, PTT, CK, HS TROP, CMP, PRL #### [address] Hemoglobin (Bld) [Mass/Vol] 12.3 g/dL Low 13.0-17.0 [facility] Comment on above: Performed By: #### C BC, PT, PTT, CK, HS TROP, CMP, PRL #### [address] Lymphocytes (Bld) [#/Vol] 0.6 10*3/uL Low 1.00-4.8 [facility] Comment on above: Performed By: #### C BC, PT, PTT, CK, HS TROP, CMP, PRL #### [address] Lymphocytes/100 WBC (Bld) 7.8 % Normal . [facility] Comment on above: Performed By: #### C BC, PT, PTT, CK, HS TROP, CMP, PRL #### [address] MCH (RBC) [Entitic mass] 29.8 pg Normal 27.5-35.2 [facility] Comment on above: Performed By: #### C BC, PT, PTT, CK, HS TROP, CMP, PRL #### [address] MCV (RBC) [Entitic vol] 89.7 fL Normal 83.5-101 [facility] Comment on above: Performed By: #### C BC, PT, PTT, CK, HS TROP, CMP, PRL #### [address] Mean Corpuscular HGB Conc 33.2 g/dL Normal 32.5-35.6 [facility] Comment on above: Performed By: #### C BC, PT, PTT, CK, HS TROP, CMP, PRL #### [address] Monocytes (Bld) [#/Vol] 0.6 10*3/uL Normal 0.0-0.8 [facility] Comment on above: Performed By: #### C BC, PT, PTT, CK, HS TROP, CMP, PRL #### [address] Monocytes/100 WBC (Bld) 8.2 % Normal . [facility] Comment on above: Performed By: #### C BC, PT, PTT, CK, HS TROP, CMP, PRL #### [address] Neutrophils (Bld) [#/Vol] 6.3 10*3/uL Normal 1.8-7.7 [facility] Comment on above: Performed By: #### C BC, PT, PTT, CK, HS TROP, CMP, PRL #### [address] Neutrophils/100 WBC (Bld) 83.8 % Normal . [facility] Comment on above: Performed By: #### C BC, PT, PTT, CK, HS TROP, CMP, PRL #### [address] NRBC% 0.2 /100{WBC} Normal 0-0.5 [facility] Comment on above: Performed By: #### C BC, PT, PTT, CK, HS TROP, CMP, PRL #### [address] Platelet mean volume (Bld) [Entitic vol] 6.5 fL Low 6.6-10.1 [facility] Comment on above: Performed By: #### C BC, PT, PTT, CK, HS TROP, CMP, PRL #### [address] Platelets (Bld) [#/Vol] 276 10*3/uL Normal 150-450 [facility] Comment on above: Performed By: #### C BC, PT, PTT, CK, HS TROP, CMP, PRL #### [address] RBC (Bld) [#/Vol] 4.13 10*6/uL Normal 3.90-5.60 [facility] Comment on above: Performed By: #### C BC, PT, PTT, CK, HS TROP, CMP, PRL #### [address] WBC (Bld) [#/Vol] 7.5 10*3/uL Normal 4.1-10.5 [facility] Comment on above: Performed By: #### C BC, PT, PTT, CK, HS TROP, CMP, PRL #### [address] Comprehensive Metabolic Pane wilner 05-02-2024 Albumin [Mass/Vol] 3.0 g/dL Low 3.5-5.7 [facility] Comment on above: Performed By: #### C BC, PT, PTT, CK, HS TROP, CMP, PRL #### [address] Albumin/Globulin [Mass ratio] 1.2 {ratio} Normal [facility] Comment on above: Performed By: #### C BC, PT, PTT, CK, HS TROP, CMP, PRL #### [address] ALP [Catalytic activity/Vol] 123 U/L High 34-104 [facility] Comment on above: Performed By: #### C BC, PT, PTT, CK, HS TROP, CMP, PRL #### [address] ALT [Catalytic activity/Vol] 14 U/L Normal 7-52 [facility] Comment on above: Performed By: #### C BC, PT, PTT, CK, HS TROP, CMP, PRL #### [address] Anion gap [Moles/Vol] 3.5 mmol/L Low 6.0-15.0 [facility] Comment on above: Performed By: #### C BC, PT, PTT, CK, HS TROP, CMP, PRL #### [address] AST [Catalytic activity/Vol] 12 U/L Low 13-39 [facility] Comment on above: Performed By: #### C BC, PT, PTT, CK, HS TROP, CMP, PRL #### [address] Bilirubin [Mass/Vol] 0.3 mg/dL Normal 0.3-1.0 [facility] Comment on above: Performed By: #### C BC, PT, PTT, CK, HS TROP, CMP, PRL #### [address] Calcium [Mass/Vol] 8.7 mg/dL Normal 8.6-10.3 [facility] Comment on above: Performed By: #### C BC, PT, PTT, CK, HS TROP, CMP, PRL #### [address] Chloride [Moles/Vol] 91 mmol/L Low 98-107 [facility] Comment on above: Performed By: #### C BC, PT, PTT, CK, HS TROP, CMP, PRL #### [address] CO2 [Moles/Vol] 40.3 mmol/L High 21.0-31.0 [facility] Comment on above: Performed By: #### C BC, PT, PTT, CK, HS TROP, CMP, PRL #### [address] Creatinine [Mass/Vol] 0.89 mg/dL Normal 0.70-1.30 [facility] Comment on above: Performed By: #### C BC, PT, PTT, CK, HS TROP, CMP, PRL #### [address] Creatinine Clr Calc Pharmacy 90.82 Normal [facility] Comment on above: Performed By: #### C BC, PT, PTT, CK, HS TROP, CMP, PRL #### [address] GFR/1.73 sq M.predicted MDRD (S/P/Bld) [Vol rate/Area] mL/min/{1.73_m2} Normal [facility] Comment on above: Performed By: #### C BC, PT, PTT, CK, HS TROP, CMP, PRL #### [address] Globulin (S) [Mass/Vol] 2.5 g/dL Normal [facility] Comment on above: Performed By: #### C BC, PT, PTT, CK, HS TROP, CMP, PRL #### [address] Glucose [Mass/Vol] 100 mg/dL Normal 70-100 [facility] Comment on above: Result Comment: [facility] Glucose Reference Range is dependent on time and content of last meal. Glucose of more than 200 mg/dL in a nonstressed, ambulatory subject supports the diagnosis of Diabetes Mellitus. ADA recommended reference range Performed By: #### C BC, PT, PTT, CK, HS TROP, CMP, PRL #### [address] Potassium [Moles/Vol] 4.8 mmol/L Normal 3.5-5.1 [facility] Comment on above: Performed By: #### C BC, PT, PTT, CK, HS TROP, CMP, PRL #### [address] Protein [Mass/Vol] 5.5 g/dL Low 6.4-8.9 [facility] Comment on above: Performed By: #### C BC, PT, PTT, CK, HS TROP, CMP, PRL #### [address] Sodium [Moles/Vol] 130 mmol/L Low 136-145 [facility] Comment on above: Performed By: #### C BC, PT, PTT, CK, HS TROP, CMP, PRL #### [facility] [address] Urea nitrogen [Mass/Vol] 19 mg/dL Normal 7-25 [facility] Comment on above: Performed By: #### C BC, PT, PTT, CK, HS TROP, CMP, PRL #### [facility] [address] Lactate [Moles/volume] in Se rum or PlasmaOrdered By: Magdy Douglass on 05-02-2024 Lactate [Moles/Vol] 0.6 mmol/L Normal 0.5-2.2 [facility] Comment on above: Result Comment: PERF ORMED BY: [place] [address] PATHOLOGIST ROASTER SUPERVISOR ULISES MILLS M.D. Performed By: #### C BC, PT, PTT, CK, HS TROP, CMP, PRL #### [address] Legionella Pneumophilia Ag, Uron 05-02-2024 Legionella Pneumophilia Ag, Ur Negative Normal Negative [facility] Comment on above: Order Comment: SOURC E OF SPECIMEN: Urine Result Comment: Pres umptive negative for L. pneumophila serogroup 1 antigen in urine, suggesting no recent or current infection. Legionnaires' disease cannot be ruled out since other serogroups and species may also cause disease. Performed at: - [address] [id number] Die Grinder: Gareth Alford MD, Phone: [phone] Performed By: #### C BC, PT, PTT, CK, HS TROP, CMP, PRL #### [facility] [address] [place] [address] [place] Magnesium [Mass/volume] in S andrei or PlasmaOrdered By: Magdy Douglass on 05-02-2024 Magnesium [Mass/Vol] 2.1 mg/dL Normal 1.9-2.7 [facility] Comment on above: Performed By: #### C BC, PT, PTT, CK, HS TROP, CMP, PRL #### [address] Strep Pneumoniae Ag, Uron Body Fluid Culture Not indicated. Normal . [facility] Comment on above: Order Comment: SOURC E OF SPECIMEN: Urine Performed By: #### C BC, PT, PTT, CK, HS TROP, CMP, PRL #### [address] Organism ID Not indicated. Normal . [facility] Comment on above: Order Comment: SOURC E OF SPECIMEN: Urine Performed By: #### C BC, PT, PTT, CK, HS TROP, CMP, PRL #### [address] Please Note: Normal . [facility] Comment on above: Order Comment: SOURC E OF SPECIMEN: Urine Result Comment: Alice ege of [place] [employer] standards require a culture to be performed on CSF specimens submitted for bacterial antigen testing. (CAP [id number]) Urine specimens will not be cultured. Performed at: [address] [id number] Die Grinder: Gareth Alford MD, Phone: [phone] PERFORMED BY: [place] [address] PATHOLOGIST ROASTER SUPERVISOR ULISES MILLS M.D. Performed By: #### C BC, PT, PTT, CK, HS TROP, CMP, PRL #### [address] Specimen source Nom (Unsp spec) Urine Normal . [facility] Comment on above: Order Comment: SOURC E OF SPECIMEN: Urine Performed By: #### C BC, PT, PTT, CK, HS TROP, CMP, PRL #### [address] Streptococcus Pneumoniae Ag Negative Normal Negative [facility] Comment on above: Order Comment: SOURC E OF SPECIMEN: Urine Performed By: #### C BC, PT, PTT, CK, HS TROP, CMP, PRL #### [address] Troponin I High Sensitivityo n 05-02-2024 Troponin I High Sensitivity 74.8 pg/mL Off scale high 0.0-20.0 [facility] Comment on above: Result Comment: Crit ical Result : Called to and read back by: JAYLAN YAO at: 05/02/2024 15:02:51 by:JANET PERFORMED BY: [place] [address] PATHOLOGIST ROASTER SUPERVISOR ULISES MILLS M.D. Performed By: #### C BC, PT, PTT, CK, HS TROP, CMP, PRL #### [facility] [address] [place], [place] [id number] [place] Troponin I High Sensitivity 99.0 pg/mL Off scale high 0.0-20.0 [facility] Comment on above: Result Comment: Crit ical Result : Called to and read back by: MANAN CHEEK at: 05/02/2024 00:45:01 by:[id number] PERFORMED BY: [place] [address] PATHOLOGIST ROASTER SUPERVISOR ULISES MILLS M.D. Performed By: #### C BC, PT, PTT, CK, HS TROP, CMP, PRL #### [facility] [address] [place] [address] [place] Troponin I.cardiac [Mass/vol ume] in Serum or Plasma by Detection limit <= 0.01 ng/Ordered By: Janae Jose on 05-02-2024 Troponin I.cardiac DL <= 0.01 ng/mL [Mass/Vol] 74.8 pg/mL 0.0-20.0 [facility] Comment on above: Critical Result : Ca lled to and read back by: JAYLAN YAO at: 05/02/2024 15:02:51 by:JANET ACETAMINOPHENon 11-24-2022 Acetaminophen [Mass/Vol] ug/mL Normal 10.0-30.0 [facility] Comment on above: Performed By: #### S ALYC, ACET, CMP, ETH #### [facility] [address] [address] [address] Renny Azevedo CBC AUTO DIFFon 11-24-2022 BASO # 0.0 103/ul Normal 0.0-0.1 [facility] Comment on above: Performed By: #### C BC #### [facility] [address] [address] [address] Renny Azevedo Basophils/100 WBC (Bld) 0.8 % Normal 0.2-2.0 [facility] Comment on above: Performed By: #### C BC #### [facility] [address] [place] [address] Dr. Renny Azevedo EO # 0.3 103/ul Normal 0.0-0.7 [facility] Comment on above: Performed By: #### C BC #### [facility] [address] [place] [address] Dr. Renny Azevedo Eosinophils/100 WBC (Bld) 6.2 % Normal 0.9-7.0 [facility] Comment on above: Performed By: #### C BC #### [facility] [address] [place] [address] Dr. Renny Azevedo Erythrocyte distribution width (RBC) [Ratio] 14.8 % Normal 11.0-15.0 [facility] Comment on above: Performed By: #### C BC #### [facility] [address] [place] [address] Dr. Renny Azevedo Hematocrit (Bld) [Volume fraction] 38.6 % Critically low 42.0-54.0 [facility] Comment on above: Performed By: #### C BC #### [facility] [address] [place] [address] Dr. Renny Azevedo Hemoglobin (Bld) [Mass/Vol] 12.6 g/dL Critically low 14.0-18.0 [facility] Comment on above: Performed By: #### C BC #### [facility] [address] [place] [address] Dr. Renny Azevedo IG # 0.01 10e3/ul Normal 0.00-0.03 [facility] Comment on above: Performed By: #### C BC #### [facility] [address] [place] [address] Dr. Renny Azevedo IG % 0.2 % Normal 0.0-0.5 [facility] Comment on above: Performed By: #### C BC #### [facility] [address] [place] [address] Dr. Renny Azevedo LYMPH # 1.4 103/ul Normal 1.2-3.8 [facility] Comment on above: Performed By: #### C BC #### [facility] [address] [place] [address] Dr. Renny Azevedo Lymphocytes/100 WBC (Bld) 28.1 % Normal 20.5-60.0 [facility] Comment on above: Performed By: #### C BC #### [facility] [address] [place] [address] Dr. Renny Azevedo MANUAL DIFF REQ NO Normal [facility] Comment on above: Performed By: #### C BC #### [facility] [address] [place] [address] Dr. Renny Azevedo MCH (RBC) [Entitic mass] 31.0 pg Normal 25.9-34.0 [facility] Comment on above: Performed By: #### C BC #### [facility] [address] [place] [address] Dr. Renny Azevedo MCHC (RBC) [Mass/Vol] 32.6 g/dL Normal 29.9-35.2 [facility] Comment on above: Performed By: #### C BC #### [facility] [address] [place] [address] Dr. Renny Azevedo MCV (RBC) [Entitic vol] 95.1 fL Critically high 80.0-94.0 [facility] Comment on above: Performed By: #### C BC #### [facility] [address] [place] [address] Dr. Renny Azevedo MONO # 0.3 103/ul Normal 0.3-0.8 [facility] Comment on above: Performed By: #### C BC #### [facility] [address] [place] [address] Dr. Renny Azevedo Monocytes/100 WBC (Bld) 5.8 % Normal 1.7-12.0 [facility] Comment on above: Performed By: #### C BC #### [facility] [address] [address] [address] Renny Azevedo NEUT # 3.0 103/ul Normal 1.4-6.5 [facility] Comment on above: Performed By: #### C BC #### [facility] [address] [address] [address] Renny Azevedo Neutrophils/100 WBC (Bld) 58.9 % Normal 43.0-75.0 [facility] Comment on above: Performed By: #### C BC #### [facility] [address] [address] [address] Renny Azevedo Platelet mean volume (Bld) [Entitic vol] 8.8 fL Critically low 9.5-13.5 [facility] Comment on above: Performed By: #### C BC #### [facility] [address] [place] [address] Dr. Renny Azevedo PLT 260 103/ul Normal 150-450 [facility] Comment on above: Performed By: #### C BC #### [facility] [address] [address] [address] Renny Azevedo RBC 4.06 106/ul Critically low 4.70-6.10 [facility] Comment on above: Performed By: #### C BC #### [facility] [address] [address] [address] Renny Azevedo WBC 5.0 103/ul Normal 4.0-11.0 [facility] Comment on above: Performed By: #### C BC #### [facility] [address] [place] [address] CSPINE WO CONon [...] by: VIC ADAMES Date: 2022-11-24 05:42 Normal [facility] CT FACIAL BONES WO CONon CT FACIAL [...] ANNA RICO Date: 2022-11-24 05:43 Normal [facility] DRUG SCREEN RAPID (URINE)on 11-24-2022 AMP Positive Abnormal NEGATIVE [facility] Comment on above: Performed By: #### D RUGRPD #### [facility] [address] [place] [address] Dr. Renny Azevedo BAR Negative Normal NEGATIVE [facility] Comment on above: Performed By: #### D RUGRPD #### [facility] [address] [address] [address] Renny Azevedo BUP Negative Normal NEGATIVE [facility] Comment on above: Performed By: #### D RUGRPD #### [facility] [address] [place] [address] Dr. Renny Azevedo BZO Negative Normal NEGATIVE [facility] Comment on above: Performed By: #### D RUGRPD #### [facility] [address] [place] [address] Dr. Renny Azevedo SHAYE Positive Abnormal NEGATIVE [facility] Comment on above: Performed By: #### D RUGRPD #### [facility] [address] [place] [address] Dr. Renny Azevedo CUT-OFFS SEE BELOW Normal [facility] Comment on above: Result Comment: AMP [...] ng/mL Performed By: #### D RUGRPD #### [facility] [address] [place] [address] Dr. Renny Azevedo DRUG CUT HEADER DRUG CLASS TEST SYST EM CUT-OFF CONCENTRATIONS ARE FOLLOWS: Normal [facility] Comment on above: Performed By: #### D RUGRPD #### [facility] [address] [place] [address] Dr. Renny Azevedo mAMP Positive Abnormal NEGATIVE [facility] Comment on above: Performed By: #### D RUGRPD #### [facility] [address] [place] [address] Dr. Renny Azevedo MTD Negative Normal NEGATIVE [facility] Comment on above: Performed By: #### D RUGRPD #### [facility] [address] [place] [address] Dr. Renny Azevedo OPI Negative Normal NEGATIVE [facility] Comment on above: Performed By: #### D RUGRPD #### [facility] [address] [place] [address] Dr. Renny Azevedo OXY Negative Normal NEGATIVE [facility] Comment on above: Performed By: #### D RUGRPD #### [facility] [address] [place] [address] Dr. Renny Azevedo PCP Negative Normal NEGATIVE [facility] Comment on above: Performed By: #### D RUGRPD #### [facility] [address] [place] [address] Dr. Renny Azevedo PPX Negative Normal NEGATIVE [facility] Comment on above: Performed By: #### D RUGRPD #### [facility] [address] [place] [address] Dr. Renny Azevedo TCA Negative Normal NEGATIVE [facility] Comment on above: Performed By: #### D RUGRPD #### [facility] [address] [place] [address] Dr. Renny Azevedo THC Negative Normal NEGATIVE [facility] Comment on above: Performed By: #### D RUGRPD #### [facility] [address] [place] [address] Dr. Renny Azevedo ETHANOL (BLD ALC)on 11-24-19 23 ALC NOTE NOTE: 80 mg/dl is th e legal limit for a blood alcohol level Normal [facility] Comment on above: Performed By: #### E TH #### [facility] [address] [place] [address] Dr. Renny Azevedo Ethanol [Mass/Vol] 169 mg/dL Normal [facility] Comment on above: Performed By: #### E TH #### [facility] [address] [place] [address] Dr. Renny Azevedo ALC NOTE NOTE: 80 mg/dl is th e legal limit for a blood alcohol level Normal [facility] Comment on above: Performed By: #### S ALYC, ACET, CMP, ETH #### [facility] [address] [place] [address] Dr. Renny Azevedo Ethanol [Mass/Vol] 239 mg/dL Normal [facility] Comment on above: Performed By: #### S ALYC, ACET, CMP, ETH #### [facility] [address] [place] [address] Dr. Renny Azevedo PROF 14(COMP METB)on 023 Albumin [Mass/Vol] 4.2 g/dL Normal 3.4-5.0 [facility] Comment on above: Performed By: #### S ALYC, ACET, CMP, ETH #### [facility] [address] [place] [address] Dr. Renny Azevedo Albumin/Globulin [Mass ratio] 1.3 {ratio} Normal [facility] Comment on above: Performed By: #### S ALYC, ACET, CMP, ETH #### [facility] [address] [place] [address] Dr. Renny Azevedo ALP [Catalytic activity/Vol] 99 U/L Normal 46-116 [facility] Comment on above: Performed By: #### S ALYC, ACET, CMP, ETH #### [facility] [address] [address] [address] Renny Azevedo ALT [Catalytic activity/Vol] 157 U/L Critically high 16-63 [facility] Comment on above: Performed By: #### S ALYC, ACET, CMP, ETH #### [facility] [address] [address] [address] Renny Azevedo Anion gap [Moles/Vol] 10.0 mmol/L Normal [facility] Comment on above: Performed By: #### S ALYC, ACET, CMP, ETH #### [facility] [address] [place] [address] Dr. Renny Azevedo AST [Catalytic activity/Vol] 362 U/L Critically high 15-37 [facility] Comment on above: Performed By: #### S ALYC, ACET, CMP, ETH #### [facility] [address] [address] [address] Renny Azevedo Bilirubin [Mass/Vol] 0.3 mg/dL Normal 0.2-1.0 [facility] Comment on above: Performed By: #### S ALYC, ACET, CMP, ETH #### [facility] [address] [place] [address] Dr. Renny Azevedo Calcium [Mass/Vol] 8.7 mg/dL Normal 8.5-10.1 [facility] Comment on above: Performed By: #### S ALYC, ACET, CMP, ETH #### [facility] [address] [address] [address] Renny Azevedo Chloride [Moles/Vol] 92 mmol/L Critically low 98-107 [facility] Comment on above: Performed By: #### S ALYC, ACET, CMP, ETH #### [facility] [address] [address] [address] Renny Azevedo CO2 [Moles/Vol] 30.4 mmol/L Normal 21.0-32.0 [facility] Comment on above: Performed By: #### S ALYC, ACET, CMP, ETH #### [facility] [address] [place] [address] Dr. Renny Azevedo Creatinine [Mass/Vol] 1.60 mg/dL Critically high 0.70-1.30 [facility] Comment on above: Performed By: #### S ALYC, ACET, CMP, ETH #### [facility] [address] [place] [address] Dr. Renny Azevedo EGFR-AF BURUNDIAN 53 mL/min/1.73m2 Critically low >=60 [facility] Comment on above: Performed By: #### S ALYC, ACET, CMP, ETH #### [facility] [address] [place] [address] Dr. Renny Azevedo EGFR-NON AF BURUNDIAN 44 mL/min/1.73m2 Critically low >=60 [facility] Comment on above: Performed By: #### S ALYC, ACET, CMP, ETH #### [facility] [address] [place] [address] Dr. Renny Azevedo Globulin (S) [Mass/Vol] 3.2 g/dL Normal [facility] Comment on above: Performed By: #### S ALYC, ACET, CMP, ETH #### [facility] [address] [place] [address] Dr. Renny Azevedo Glucose [Mass/Vol] 82 mg/dL Normal 74-106 [facility] Comment on above: Performed By: #### S ALYC, ACET, CMP, ETH #### [facility] [address] [place] [address] Dr. Renny Azevedo Potassium [Moles/Vol] 3.4 mmol/L Critically low 3.5-5.1 [facility] Comment on above: Performed By: #### S ALYC, ACET, CMP, ETH #### [facility] [address] [place] [address] Dr. Renny Azevedo Protein [Mass/Vol] 7.4 g/dL Normal 6.4-8.2 [facility] Comment on above: Performed By: #### S ALYC, ACET, CMP, ETH #### [facility] [address] [address] [address] Renny Azevedo Sodium [Moles/Vol] 129 mmol/L Critically low 136-145 [facility] Comment on above: Performed By: #### S ALYC, ACET, CMP, ETH #### [facility] [address] [address] [address] Renny Azevedo Urea nitrogen [Mass/Vol] 17.0 mg/dL Normal 7.0-18.0 [facility] Comment on above: Performed By: #### S ALYC, ACET, CMP, ETH #### [facility] [address] [address] [address] Renny Azevedo Urea nitrogen/Creatinine [Mass ratio] 10.6 mg/mg Normal [facility] Comment on above: Performed By: #### S ALYC, ACET, CMP, ETH #### [facility] [facility] [address] [place] [address] Dr. Renny Azevedo SALICYLATEon 11-24-2022 SALICYLATE 4.7 mg/dL Normal <=19.9 [facility] Comment on above: Performed By: #### S ALYC, ACET, CMP, ETH #### [facility] [address] [place] [address] LUMBAR SPINE WO [...] by:VANESA Tavaresigned by:Jay Gross MD10/14/18Final result Normal [facility] COMPLETE BLOOD COUNT W/DIFFo n 07-02-2018 Basophils Auto #/vol (Bld) 0.02 10*3/uL Normal 0.00-0.20 [facility] Comment on above: Performed By: #### C BCD ####[facility] PATHOLOGY [id number] [place] [address], Basophils/100 WBC Auto (Bld) 0.5 % Normal <=1.9 [facility] Comment on above: Performed By: #### C BCD ####[facility] PATHOLOGY [id number] [place] [address], Eosinophils Auto #/vol (Bld) 0.08 10*3/uL Normal 0.00-0.70 [email or web address] Comment on above: Performed By: #### C BCD ####[facility] PATHOLOGY [id number] [place] [address], Eosinophils/100 WBC Auto (Bld) 2.0 % Normal 0.1-4.0 [facility] Comment on above: Performed By: #### C BCD ####[facility] PATHOLOGY [id number] [place] [address], Erythrocyte distribution width Auto Ratio (RBC) 13.5 % Normal 11.5-14.5 [facility] Comment on above: Performed By: #### C BCD ####[facility] PATHOLOGY [id number] [place] [address], Hematocrit Auto Volume Fraction (Bld) 42.3 % Normal 41.0-53.0 [facility] Comment on above: Performed By: #### C BCD ####[facility] PATHOLOGY [id number] [place] [address], Hemoglobin mass conc (Bld) 13.9 g/dL Normal 13.9-16.3 The [facility] Comment on above: Performed By: #### C BCD ####[facility] PATHOLOGY [id number] [place] [address], Lymphocytes Auto #/vol (Bld) 1.22 10*3/uL Normal 1.00-4.80 [facility] Comment on above: Performed By: #### C BCD ####[facility] PATHOLOGY [id number] [place] [address], Lymphocytes/100 WBC Auto (Bld) 30.9 % Normal 24.0-44.0 [email or web address] Comment on above: Performed By: #### C BCD ####[facility] PATHOLOGY [id number] [place] [address], MCH Auto Entitic mass (RBC) 28.8 pg Normal 26.0-34.0 The [facility] Comment on above: Performed By: #### C BCD ####[facility] PATHOLOGY [id number] [place] [address], MCHC Auto mass conc (RBC) 32.9 g/dL Normal 32.0-35.9 The [facility] Comment on above: Performed By: #### C BCD ####[facility] PATHOLOGY [id number] [place] [address], MCV Auto Entitic volume (RBC) 88 fL Normal 80-100 The [facility] Comment on above: Performed By: #### C BCD ####[facility] PATHOLOGY [id number] [place] [address], Monocytes Auto #/vol (Bld) 0.23 10*3/uL Normal 0.20-1.00 The [facility] Comment on above: Performed By: #### C BCD ####[facility] PATHOLOGY [id number] [place] [address], Monocytes/100 WBC Auto (Bld) 5.8 % Normal 2.0-11.0 The [facility] Comment on above: Performed By: #### C BCD ####[facility] PATHOLOGY [id number] [place] [address] [place], Neutrophils Auto #/vol (Bld) 2.40 10*3/uL Normal 1.50-8.00 [email or web address] Comment on above: Performed By: #### C BCD ####[facility] PATHOLOGY [id number] [place], [place], Neutrophils/100 WBC Auto (Bld) 60.8 % Normal 31.0-76.0 [email or web address] Comment on above: Performed By: #### C BCD ####[facility] PATHOLOGY [id number] [place] [address], Platelet mean volume Auto Entitic volume (Bld) 9.6 fL Normal 8.5-11.5 [email or web address] Comment on above: Performed By: #### C BCD ####[facility] PATHOLOGY [id number] [place] [address], Platelets Auto #/vol (Bld) 243 10*3/uL Normal 150-400 [email or web address] Comment on above: Performed By: #### C BCD ####[facility] PATHOLOGY [id number] [place] [address], RBC Auto #/vol (Bld) 4.83 10*6/uL Normal 4.50-5.90 Th e [facility] Comment on above: Performed By: #### C BCD ####[facility] PATHOLOGY [id number] [place] [address], WBC Auto #/vol (Bld) 4.0 10*3/uL Low 4.5-11.5 The [facility] Comment on above: Performed By: #### C BCD ####S PATHOLOGY [id number] [place], [place], HEPATIC FUNCTION PANELon Albumin mass conc 4.2 g/dL Normal 3.4-5.1 The [facility] Comment on above: Performed By: #### H EPATIC ####S PATHOLOGY [id number] [place] [address], ALK 92 IU/L Normal 40-200 [email or web address] Comment on above: Performed By: #### H EPATIC ####[facility] [id number] [place], [place], ALT enzyme act/vol 18 U/L Normal 7-40 The [facility] Comment on above: Performed By: #### H EPATIC ####[facility] PATHOLOGY [id number] [place], [place], AST enzyme act/vol 21 U/L Normal 7-40 The [facility] Comment on above: Performed By: #### H EPATIC ####[facility] PATHOLOGY [id number] [place] [address], Bilirubin mass conc 0.10 mg/dL Normal 0.10-0.30 [facility] Comment on above: Performed By: #### H EPATIC ####[facility] PATHOLOGY [id number] [place] [address], Bilirubin Ql (U) 0.6 mg/dL Normal 0.1-1.5 The [facility] Comment on above: Performed By: #### H EPATIC ####[facility] PATHOLOGY [id number] [place] [address], Protein mass conc 6.1 g/dL Normal 5.8-8.1 The [facility] Comment on above: Performed By: #### H EPATIC ####[facility] PATHOLOGY [id number] [place] [address], HEPATITIS B CORE ANTIBODYon 07-02-2018 CORE Nonreactive Normal Nonreactive The [facility] Comment on above: Performed By: #### A NTI-HBS, HBSAG, CORE ####[facility] PATHOLOGY [id number] [place] [address], HEPATITIS B SURFACE ANTIBODY on 07-02-2018 ANTI-HBS < 3.1 Normal The [facility] Comment on above: Order Comment: Nonre active: Samples < 7.5 mIU/mLReactive: Samples >/= 10.0 mIU/mLThe accepted criteria for immunity to HBV is anti-HBs activity >/= 10 mIU/mL, as defined by the WHO International Reference Preparation. Performed By: #### A NTI-HBS, HBSAG, CORE ####[facility] PATHOLOGY [id number] [place] [address], HEPATITIS B SURFACE ANTIGENo n 07-02-2018 Body surface area Derived from formula Non-Reactive Normal Non-Reactive [email or web address] Comment on above: Performed By: #### A NTI-HBS, HBSAG, CORE ####S PATHOLOGY [id number] [place], [place], HEPATITIS C ANTIBODYon 07-02 HCV Reactive Abnormal Nonreactive [email or web address] Comment on above: Performed By: #### H CV, HEP C QNT ####S PATHOLOGY [id number] [place], [place], HEPATITIS C QUANT BY PCRon 0 07-02-2018 HEP C QNT (ND) Not Detected Normal Not Detected [email or web address] Comment on above: Order Comment: This test is performed by a quantitative polymerase chain reaction (PCR) method (Ampliprep/SARYA TaqMan test, v2.0, [employer] [place], [place]) that is intended [...] (PCR) method (Ampliprep/SARAY TaqMan test, v2.0, [employer] [place], [place]) that is intended to be used as an aid in the diagnosis of HCV infection (genotypes 1 to 6) and also as an aid in the management of HCV infected patients undergoing anti-viral therapy in conjunction with clinical and other laboratory markers of infection. Performed By: #### H CV, HEP C QNT ####[facility] [id number] [place], [place], HIV1 HIV2 AGAB SCRNon 2017 HIV AG-AB Non-Reactive Normal Non-Reactive [email or web address] Comment on above: Order Comment: HIV I nformation: ?[place] Rev. code 3701.243(E):This information has been disclosed [...] By: #### h iv1 hiv2 agab scrn ####[facility] PATHOLOGY [id number] [place], [place], HIV-1 AB Non-Reactive Normal Non-Reactive [facility] Comment on above: Order Comment: HIV I nformation: ?[place] Rev. code 3701.243(E):This information has been disclosed [...] By: #### h iv1 hiv2 agab scrn ####[facility] PATHOLOGY [id number] [place], [place], HIV-1 P24 ANTIGEN Non-Reactive Normal Non-Reactive [facility] Comment on above: Order Comment: HIV I nformation: ?[place] Rev. code 3701.243(E):This information has been disclosed [...] h iv1 hiv2 agab scrn ####S PATHOLOGY [id number] [place], [place], HIV-2 AB Non-Reactive Normal Non-Reactive [facility] Comment on above: Order Comment: HIV I nformation: ?[place] Rev. code 3701.243(E):This information has been disclosed [...] h iv1 hiv2 agab scrn ####S PATHOLOGY [id number] [place], [place], SYPHILIS WITH CONFIRMATIONon 07-02-2018 Reagin Ab RPR Ql (S) Non-Reactive Normal Non-Reactive The [facility] Comment on above: Order Comment: No se rological evidence of infection with T. pallidum.A nonreactive result does not exclude the possibility of exposure to or infection with T. pallidum. Antibodies may be at low or undetectable levels in incubating or early primary disease and in some clinical conditions. Performed By: #### s dao with confirmation ####S PATHOLOGY [id number] [place], [place], SYPHILIS TOTAL (IGG/IGM) Non-Reactive Normal Non-Reactive The [facility] Comment on above: Order Comment: No se rological evidence of infection with T. pallidum.A nonreactive result does not exclude the possibility of exposure to or infection with T. pallidum. Antibodies may be at low or undetectable levels in incubating or early primary disease and in some clinical conditions. Performed By: #### s dao with confirmation ####S PATHOLOGY [id number] [place], [place], DISCHARGE SUMMARYon 02-06-20 18 DISCHARGE SUMMARY [address] [address] DISCHARGE SUMMARYPATIENT NAME: AARON OLIVAREZ : 1960MED REC NO: [id number] ROOM: 0130ACCOUNT NO: [id number] ADMIT DATE: 01/29/2018PROVIDER: Elian Powelli DISCH DATE:HISTORY [...] . With this, he is admitted to [facility] from [place].PAST PSYCHIATRIC HISTORY: History of major depression and [...] [facility]. [facility]ELIAN JOEURTID: 02/05/2018 9:02:31 [id number]#: [id number] Doc#: [id number]: Normal [facility] CBC with Diffon 01-30-2018 Abs. Basophil 0.00 k/uL Normal 0.0-0.[address] [facility] Comment on above: Performed By: #### C P, LIPR, TSHX, CDP ####[facility] [place] [address] #### T3, T4 ####[facility] [place] [address] Abs.Neutrophil (Seg) 1.83 k/uL Normal 1.3-9.1 [facility] Comment on above: Performed By: #### C P, LIPR, TSHX, CDP ####[address] [address] #### T3, T4 ####[address] [address] Basophils/100 WBC Auto (Bld) 0 % Normal 0-[address] [facility] Comment on above: Performed By: #### C P, LIPR, TSHX, CDP ####[address] [address] #### T3, T4 ####[address] [address] Blood morphology Normal Normal [facility] Comment on above: Result Comment: Perf ormed at [facility] [address] [place] [address] Performed By: #### C P, LIPR, TSHX, CDP ####[address] [address] #### T3, T4 ####[address] [address] Eosinophils 0.04 10*3/uL Normal 0.0-0.[address] [facility] Comment on above: Performed By: #### C P, LIPR, TSHX, CDP ####[address] [address] #### T3, T4 ####[address] [address] Eosinophils/100 leukocytes 1 % Normal 0-[address] [facility] Comment on above: Performed By: #### C P, LIPR, TSHX, CDP ####[address] [place] [address] #### T3, T4 ####[address] [address] Lymphocytes 1.87 10*3/uL Normal 1.0-4.[address] [facility] Comment on above: Performed By: #### C P, LIPR, TSHX, CDP ####[address] [address] #### T3, T4 ####[address] [address] Lymphocytes/100 leukocytes 48 % High 24-[address] [facility] Comment on above: Performed By: #### C P, LIPR, TSHX, CDP ####[address] [address] #### T3, T4 ####[address] [address] Monocytes 0.16 10*3/uL Normal 0.1-1.[address] [facility] Comment on above: Performed By: #### C P, LIPR, TSHX, CDP ####[address] [address] #### T3, T4 ####[address] [address] Monocytes/100 leukocytes 4 % Normal 1-[address] [facility] Comment on above: Performed By: #### C P, LIPR, TSHX, CDP ####[address] [address] #### T3, T4 ####[address] [address] Neutrophil (Seg) 47 % Normal 36-66 [facility] Comment on above: Performed By: #### C P, LIPR, TSHX, CDP ####[facility] [place] [address] #### T3, T4 ####[address] [address] Erythrocyte distribution width Auto Ratio (RBC) 13.8 % Normal 11.5-14.[address] [facility] Comment on above: Performed By: #### C P, LIPR, TSHX, CDP ####[address] [address] #### T3, T4 ####[address] [address] Erythrocytes (RBC) 4.72 10*6/uL Normal 4.5-5.9 [facility] Comment on above: Performed By: #### C P, LIPR, TSHX, CDP ####[address] [address] #### T3, T4 ####[address] [address] Hematocrit (HCT) 42.2 % Normal 41-53 [facility] Comment on above: Performed By: #### C P, LIPR, TSHX, CDP ####[address] [address] #### T3, T4 ####[address] [address] Hemoglobin mass conc (Bld) 13.9 g/dL Normal 13.5-17.[address] [facility] Comment on above: Performed By: #### C P, LIPR, TSHX, CDP ####[address] [address] #### T3, T4 ####[address] [place] [address] MCH 29.6 pg Normal 26-[address] [facility] Comment on above: Performed By: #### C P, LIPR, TSHX, CDP ####[address] [address] #### T3, T4 ####[address] [address] MCHC mass conc (RBC) 33.0 g/dL Normal 31-37 [facility] Comment on above: Performed By: #### C P, LIPR, TSHX, CDP ####[address] [address] #### T3, T4 ####[address] [address] MCV 89.5 fL Normal 80-[address] [facility] Comment on above: Performed By: #### C P, LIPR, TSHX, CDP ####[address] [address] #### T3, T4 ####[address] [address] Platelet mean volume (PMV) 7.3 fL Normal 6.0-12.[address] [facility] Comment on above: Performed By: #### C P, LIPR, TSHX, CDP ####[address] [address] #### T3, T4 ####[address] [address] Platelets 198 10*3/uL Normal 150-[address] [facility] Comment on above: Performed By: #### C P, LIPR, TSHX, CDP ####[address] [address] #### T3, T4 ####[address] [address] WBC (Leukocytes) 3.9 10*3/uL Normal 3.5-11.0 [facility] Comment on above: Performed By: #### C P, LIPR, TSHX, CDP ####[address] [address] #### T3, T4 ####[address] [address] Auto Diff Performed NOT REPORTED Normal [facility] Comment on above: Performed By: #### C P, LIPR, TSHX, CDP ####[address] [address] #### T3, T4 ####[address] [address] Erythrocyte morphology NOT REPORTED Normal [facility] Comment on above: Performed By: #### C P, LIPR, TSHX, CDP ####[address] [address] #### T3, T4 ####[address] [address] Erythrocytes (RBC) NOT REPORTED Normal [facility] Comment on above: Performed By: #### C P, LIPR, TSHX, CDP ####[address] [address] #### T3, T4 ####[address] [address] Granulocytes/100 WBC (Bld) NOT REPORTED Normal 0.00-0.[address] [facility] Comment on above: Performed By: #### C P, LIPR, TSHX, CDP ####[address] [place] [address] #### T3, T4 ####[place] [place] [address] Immature granulocytes #/vol (Bld) NOT REPORTED Normal [address] [facility] Comment on above: Performed By: #### C P, LIPR, TSHX, CDP ####[address] [address] #### T3, T4 ####[address] [address] Platelets NOT REPORTED Normal [facility] Comment on above: Performed By: #### C P, LIPR, TSHX, CDP ####[address] [address] #### T3, T4 ####[address] [address] WBC Morphology NOT REPORTED Normal [facility] Comment on above: Performed By: #### C P, LIPR, TSHX, CDP ####[address] [address] #### T3, T4 ####[address] [address] Comp Metabolic Profon 2017 (cont.) Normal [facility] Comment on above: Result Comment: Aver age GFR for 50-59 years old: 93 mL/min/1.73sq mChronic Kidney Disease: <60 mL/min/1.73sq mKidney failure: <15 mL/min/1.73sq meGFR calculated using average adult body mass. Additional eGFR calculator available at:http://www.[employer]/multiple_crcl_2012.htmPerformed at [address] [address] Performed By: #### C P, LIPR, TSHX, CDP ####[facility] [place] [address] #### T3, T4 ####[address] [address] Alanine aminotransferase (ALT) 11 U/L Normal 5-[address] [facility] Comment on above: Performed By: #### C P, LIPR, TSHX, CDP ####[facility] [place] [address] [place] [address] #### T3, T4 ####[address] [address] Albumin 3.6 g/dL Normal 3.5-5.[address] [facility] Comment on above: Performed By: #### C P, LIPR, TSHX, CDP ####[address] [place] [address] #### T3, T4 ####[address] [address] Alkaline Phos 104 U/L Normal 40-[address] [facility] Comment on above: Performed By: #### C P, LIPR, TSHX, CDP ####[address] [place] [address] #### T3, T4 ####[address] [address] Anion gap 7 mmol/L Low 9-[address] [facility] Comment on above: Performed By: #### C P, LIPR, TSHX, CDP ####[address] [place] [address] #### T3, T4 ####[address] [address] Aspartate aminotransferase (AST) 13 U/L Normal <[address] [facility] Comment on above: Performed By: #### C P, LIPR, TSHX, CDP ####[address] [address] #### T3, T4 ####[address] [address] Bilirubin Ql (U) 0.26 mg/dL Low 0.3-1.2 [facility] Comment on above: Performed By: #### C P, LIPR, TSHX, CDP ####[address] [address] #### T3, T4 ####[address] [address] Calcium 8.6 mg/dL Normal 8.6-10.[address] [facility] Comment on above: Performed By: #### C P, LIPR, TSHX, CDP ####[address] [address] #### T3, T4 ####[address] [address] Chloride 106 mmol/L Normal 98-[address] [facility] Comment on above: Performed By: #### C P, LIPR, TSHX, CDP ####[address] [address] #### T3, T4 ####[address] [place] [address] CO2 29 mmol/L Normal 20-[address] [facility] Comment on above: Performed By: #### C P, LIPR, TSHX, CDP ####[address] [address] #### T3, T4 ####[address] [address] Creatinine 1.01 mg/dL Normal 0.70-1.[address] [facility] Comment on above: Performed By: #### C P, LIPR, TSHX, CDP ####[facility] [place] [address] #### T3, T4 ####[address] [address] eGFR (non-black) mL/min/{1.73_m2} Normal >60 [facility] Comment on above: Performed By: #### C P, LIPR, TSHX, CDP ####[address] [address] #### T3, T4 ####[address] [address] Glucose mass conc 100 mg/dL High 70-99 [facility] Comment on above: Performed By: #### C P, LIPR, TSHX, CDP ####[address] [address] #### T3, T4 ####[address] [address] Potassium molar conc 4.1 mmol/L Normal 3.7-5.3 [facility] Comment on above: Performed By: #### C P, LIPR, TSHX, CDP ####[address] [address] #### T3, T4 ####[address] [address] Protein 5.9 g/dL Low 6.4-8.[address] [facility] Comment on above: Performed By: #### C P, LIPR, TSHX, CDP ####[facility] [place] [address] #### T3, T4 ####[address] [place] [address] Sodium 142 mmol/L Normal 135-[address] [facility] Comment on above: Performed By: #### C P, LIPR, TSHX, CDP ####[facility] [place] [address] #### T3, T4 ####[address] [address] Urea nitrogen 19 mg/dL Normal 6-[address] [facility] Comment on above: Performed By: #### C P, LIPR, TSHX, CDP ####[address] [address] #### T3, T4 ####[address] [address] Albumin/Globulin Ratio NOT REPORTED Normal 1.0-2.[address] [facility] Comment on above: Performed By: #### C P, LIPR, TSHX, CDP ####[address] [place] [address] #### T3, T4 ####[address] [place] [address] BUN/CRE Ratio NOT REPORTED Normal -[address] [facility] Comment on above: Performed By: #### C P, LIPR, TSHX, CDP ####[address] [address] #### T3, T4 ####[address] [place] [place] [address] Staging: NOT REPORTED Normal [facility] Comment on above: Performed By: #### C P, LIPR, TSHX, CDP ####[facility] [place] [address] #### T3, T4 ####[address] [address] Lipid Profileon 01-30-2018 Cholesterol 172 mg/dL Normal <[address] [facility] Comment on above: Result Comment: Chol esterol Guidelines: <200 Desirable 200-240 Borderline >240 Undesirable Performed By: #### C P, LIPR, TSHX, CDP ####[address] [address] #### T3, T4 ####[address] [address] Cholesterol to HDL Ratio 3.4 {ratio} Normal <[address] [facility] Comment on above: Performed By: #### C P, LIPR, TSHX, CDP ####[address] [address] #### T3, T4 ####[address] [address] HDL Cholesterol 50 mg/dL Normal >[address] [facility] Comment on above: Result Comment: HDL Guidelines: <40 Undesirable 40-59 Borderline >59 Desirable Performed By: #### C P, LIPR, TSHX, CDP ####[address] [address] #### T3, T4 ####[address] [address] LDL Cholesterol 93 mg/dL Normal 0-[address] [facility] Comment on above: Result Comment: LDL Guidelines: <100 Desirable 100-129 Near to/above Desirable 130-159 Borderline >159 UndesirableDirect (measured) LDL and calculated LDL are not interchangeable tests. Performed By: #### C P, LIPR, TSHX, CDP ####[facility] [place] [address] #### T3, T4 ####[address] [address] Triglyceride 146 mg/dL Normal <[address] [facility] Comment on above: Result Comment: Trig lyceride Guidelines: <150 Desirable 150- 199 Borderline 200-499 High >499 Very high Based on AHA Guidelines for fasting triglyceride, August 2012.Performed at [address] [address] Performed By: #### C P, LIPR, TSHX, CDP ####[address] [place] [address] #### T3, T4 ####[address] [address] Cholesterol in VLDL mass conc NOT REPORTED Normal 12-[address] [facility] Comment on above: Performed By: #### C P, LIPR, TSHX, CDP ####[address] [address] #### T3, T4 ####[address] [address] TSH w/reflex to FT4on 2017 Thyroid stimulating hormone (TSH) 1.17 m[IU]/L Normal 0.30-5.[address] [facility] Comment on above: Result Comment: Perf ormed at [facility] [address] [place] [address] Performed By: #### C P, LIPR, TSHX, CDP ####[address] [place] [address] #### T3, T4 ####[address] [address] Thyroxine T4on 01-30-2018 Thyroxine (T4) 5.1 ug/dL Normal 4.5-12.[address] [facility] Comment on above: Result Comment: Perf ormed at [address] [address] Performed By: #### C P, LIPR, TSHX, CDP ####[address] [address] #### T3, T4 ####[address] [address] Triiodothyronine T3on 2017 Triiodothyronine T3 103 ng/dL Normal 80-[address] [facility] Comment on above: Result Comment: Perf ormed at [address] [address] Performed By: #### C P, LIPR, TSHX, CDP ####[address] [address] #### T3, T4 ####[address] [address] PSYCHIATRIC EVALUATIONon PSYCHIATRIC EVALUATION [address] [address] PSYCHIATRIC EVALUATIONPATIENT NAME: AARON OLIVAREZ : 1960MED REC NO: [id number] ROOM: 0130ACCOUNT NO: [id number] ADMIT DATE: 01/29/2018PROVIDER: Elian IndurtiCOMPREHENSIVE PSYCHIATRIC EVALUATIONHISTORY OF PRESENTING ILLNESS AND REASON FOR CURRENT ADMISSION: Thepatient is a 57-year-old male, who is feeling depressed and sad. Apparently, his Suboxone was stolen yesterday by somebody. He got upset. He is homeless and he feels that he should kill himself and . Withthis, he went to Emergency Department and got admitted to [facility] through [facility].PAST PSYCHIATRIC HISTORY: History of major depressive disorder, not takinghis medications. He was supposed to be going to [facility] he is not going there. He states that [facility].MEDICAL AND SURGICAL HISTORY: History of chronic back pain.ALLERGIES: He denies any allergies.PERSONAL, FAMILY, AND SOCIAL HISTORY: He is currently homeless and livingon the streets. He has associated [employer]. Hehas four sons with whom [...] STAY: 10 days.ELIAN INDURTID: 01/29/2018 18:25:57 [id number]#: [id number] Doc#: [id number]: Normal [facility] Discharge Summaryon 10-04-20 17 Discharge Summary MR#: [id number] Admitted: 10/01/2017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 1:22 pm [facility] ENTER [address] [place] [address] Hospitalist Progress Note Signed Patient: Aaron Olivarez MR#: [id number] : 1960 Acct:[id number] Age/Sex: 63 / M Adm Date: 4 Loc: Room: [address] [place] [address] Type: ADM IN Attending Dr: Janae Jose [...] down without significant elevation. Suspecting type II AL from hypoxia. Echocardiogram showing preserved ejection fraction with mild LVH. No wall motion abnormality seen. EKG negative for acute ischemic changes. Documented By: Janae Jose MD 05/05/24 1319 Signed By: <Electronically signed by Janae Jose MD> 05/05/24 1327 [facility] Work Phone: 1(712) 718-650706-23-2024 Progress note Author Víctor Agrawal [facility] May 05, 2024 11:29am Note Date/Time May 05, 2024 11:2 9am [facility] ENTER [address] [place] [address] Pulmonology Progress Note Signed Patient: Aaron Olivarez MR#: [id number] : 1960 Acct:[id number] Age/Sex: 63 / M Adm Date: 4 Loc: Room: [address] [place] [address] Type: ADM IN Attending Dr: Janae Jose [...] edema, no clubbing. Skin: No skin rash RN FLOAT: Sleepy, easily arousable, no focal deficits. Objective [...] 112 5 Signed By: <Electronically signed by Vcítor Agrawal MD> 05/05/24 1120 [facility] Work Phone: 1(375) 601-114406-22-2024 Progress note Author Janae Jose [facility] May 04, 2024 12:19pm Note Date/Time May 04, 2024 12:1 3pm [facility] EN[facility] [address] [place] [address] Hospitalist Progress Note Signed Patient: Aaron Olivarez MR#: [id number] : 1960 Acct:[id number] Age/Sex: 63 / M Adm Date: 4 Loc: Room: [address] [place] [address] Type: ADM IN Attending Dr: Janae Jose [...] down without significant elevation. Suspecting type II AL from hypoxia. Echocardiogram showing preserved ejection fraction with mild LVH. No wall motion abnormality seen. Negative for acute ischemic changes. Documented By: Janae Jose MD 05/04/241209 Signed By: <Electronically signed by Janae Jose MD> 05/04/24 1219 [facility] Work Phone: 1([phone]) 884-391006-22-2024 Progress note Author Víctor Agrawal [facility] May 04, 2024 12:03pm Note Date/Time May 04, 2024 11:5 4am [facility] EN[facility] [address] [place] [address] Pulmonology Progress Note Signed Patient: Aaron Olivarez MR#: [id number] : 1960 Acct:[id number] Age/Sex: 63 / M Adm Date: 4 Loc: 4C Room: [address] [place] [address] Type: ADM IN Attending Dr: Janae Jose [...] Musculoskeletal: No edema Skin: No skin rash RN FLOAT: Drowsy and confused, does not interact or [...] <Electronically signed by Víctor Agrawal MD> 05/04/24 1202 [facility] Work Phone: 1(990) 714-334006-21-2024 Progress note Author Víctor Agrawal [facility] May 03, 2024 1:57pm Note Date/Time May 03, 2024 1:57 pm [facility] [address] [place] [address] Pulmonology Progress Note Signed Patient: Aaron Olivarez MR#: [id number] : 1960 Acct:[id number] Age/Sex: 63 / M Adm Date: 4 Loc: Room: [address] [place] [address] Type: ADM IN Attending Dr: Janae Jose [...] Musculoskeletal: No edema Skin: No skin rash RN FLOAT: Drowsy, 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 No focal deficits Objective Intake [...] 135 2 Signed By: <Electronically signed by Vcítor Agrawal MD> 05/03/24 1357 [facility] Work Phone: 1(374) 278-456306-21-2024 Progress note Author Janae Jose [facility] May 03, 2024 12:57pm Note Date/Time May 03, 2024 12:5 7pm [facility] EN[facility] [address] [place] [address] Hospitalist Progress Note Signed Patient: Aaron Olivarez MR#: [id number] : 1960 Acct:[id number] Age/Sex: 63 / M Adm Date: 4 Loc: Room: [address] [place] [address] Type: ADM IN Attending Dr: Janae Jose [...] down without significant elevation. Suspecting type II AL from hypoxia. Pending echocardiogram to assess LV function and wall motion. Will obtain twelve-lead EKG. Documented By: Janae Jose MD 05/03/24 7799 Signed By: <Electronically signed by Janae Jose MD> 05/03/24 1257 [facility] Work Phone: 1(558) 362-470006-20-2024 Progress note Author Janae Jose [facility] May 02, 2024 1:49pm Note Date/Time May 02, 2024 1:49 pm [facility] [address] [place] [address] Event Note Signed Patient: Aaron Olivarez MR#: [id number] : 1960 Acct:[id number] Age/Sex: 63 / M Adm Date: 4 Loc: Room: [address] [place] [address] Type: ADM IN Attending Dr: Janae Jose [...] signed by Janae Jose MD> 05/02/24 1349 [facility] Work Phone: 1([phone]) 387-839106-20-2024 Consult note Author Víctor Agrawal [facility] May 02, 2024 1:47pm Note Date/Time May 02, 2024 1:42 pm [facility] [address] [place] [address] Pulmonology Consult Note Signed Patient: Aaron Olivarez MR#: [id number] : 1960 Acct:[id number] Age/Sex: 63 / M Adm Date: 4 Loc: 4C Room: [address] [place] [address] Type: ADM IN Attending Dr: aJnae Jose MD Copies to: DO Janae Barnard [...] and history of hypertension was transferred from [place] [facility] ED directly into ICU. Apparently, patient was experiencing productive cough with thick yellow phlegm and increased shortness of breath prior to his presentation to [place] ED. Patient was found by familylethargic and difficult to arouse, oxygen saturation was 70% on room air, venousblood gas showed pCO2 of 80 with pH of 7.32. Patient refused BiPAP. Chest CT angiogram reported negative for PE, showed right lower lobe consolidation consistent with pneumonia. [facility] Social History Smoking Status: Heavy [...] Musculoskeletal: No edema Skin: No skin rash RN FLOAT: Drowsy, no focal deficits Results - Pulmonology [...] <Electronically signed by Víctor Agrawal MD> 05/02/24 0597 [facility] Work Phone: 1(433) 509-758906-20-2024 History and physical note Author Magdy Douglass [facility] May 02, 2024 7:12am Note Date/Time May 02, 2024 7:11 am [facility] EN[facility] [address] [place] [address] Hospitalist H&P Signed Patient: Aaron Olivarez MR#: [id number] : 1960 Acct:[id number] Age/Sex: 63 / M Adm Date: 4 Loc: Room: [address] [place] [address] Type: ADM IN Attending Dr: Janae Jose MD Copies to: MD Sulaiman Ruggiero, DO Janae Jose MD~ HPI DATE OF EXAMINATION: 05/01/24 CHIEF COMPLAINT: cough, dyspnea, altered mental status HISTORY OF PRESENT ILLNESS: 63 year old man with history of HTN, COPD, tobacco abuse who presented to [place] ED with the above complaints. Per the patient for 2-3 days prior to admission he was having a cough productiveof thick yellow sputum and increasing dyspnea with exertion. On the date of presentation family members went to see the patient and found that he was lethargic and difficult to arouse so he was brought to [facility] ED for evaluation. On arrival there pulse [...] negative except as [facility] Social History Smoking Status: Heavy [...] % (Auto) 7.8 % (.) 05/02/24 04:20 Roane % (Auto) 8.2 % (.) 05/02/24 04:20 Eos % (Auto) 0.0 % (.) 05/02/24 04:20 Baso % (Auto) 0.2 % (.) 05/02/24 04:20 Nucleat RBC Rel Count 0.2 /100 WBC (0-0.5) 05/02/24 04:20 Neut # (Auto) 6.3 x10E3/uL (1.8-7.7) 05/02/24 04:20 Lymph # (Auto) 0.6 x10E3/uL (1.00-4.8) L 05/02/24 04:20 Roane # (Auto) 0.6 x10E3/uL (0.0-0.8) 05/02/24 04:20 [...] signed by Magdy Douglass MD> 05/02/24 0712 [facility] Work Phone: Consult note Author Patricio Galaviz [facility] May 06, 2024 1:01pm Note Date/Time May 06, 2024 1:01 pm [facility] EN[facility] [address] [place] [address] Physiatry (Rehab) Consult Note Signed Patient: Aaron Olivarez MR#: [id number] : 1960 Acct:[id number] Age/Sex: 63 / M Adm Date: 4 Loc: Room: [address] [place] [address] Type: ADM IN Attending Dr: Kiko Maldonado [...] negative unless noted below or in HPI [facility] Medical History Heavy smoker Heroin use H/O ETOH abuse COPD (chronic obstructive pulmonary disease) Social History Smoking Status: Heavy tobacco smoker Social History Comments: Moved from [place] to [place] to live with son, Lamin. Meds Medications [...] chart, including current orders, allied health and philatelic consultant notes, labs/imaging and performed fairbanks elements of exam and I formulated the plan of care and facilitated the medical decision making. I completed a substantive portion of this encounter, the medical decision making portion of this note in its entirety, including Allied health note review, nursing note review, philatelic consultant note review, discussion with nursing and case management, and more than 50% of my time was spent on counseling and coordination of care, time spent 60 minutes Documented By: Patricio Galaviz MD 05/06/24 1251 Signed By: <Electronically signed by Patricio Galaviz MD> 05/06/24 1301 [facility] Work Phone: Consult note Author Julito Mosley [facility] Note Date/Time November 18, 2024 4: 27pm [facility] EN[facility] [address] [place] [address] Cardiology Consult Note Signed Patient: Aaron Olivarez MR#: [id number] : 1960 Acct:[id number] Age/Sex: 64 / M Adm Date: 5 Loc: Room: [address] [place] [address] Type: ADM INOo Attending Dr: Yamila Donald [...] negative unless noted below or in HPI [facility] Medical History Heavy smoker Heroin use H/O ETOH abuse COPD (chronic obstructive pulmonary disease) Social History Smoking Status: Unknown if ever smoked Substance Use Type: Marijuana, Heroin and Methamphetamine Social History Comments: Moved from [place] to [place] to live with son, Lamin. Meds Medications [...] x10E3/uL Lymph # (Auto) 1.4 (1.00-4.8) x10E3/uL Roane # (Auto) 0.6 (0.0-0.8) x10E3/uL Eos # [...] @ 70 1000 / 1000 mls/hr IV .[id number] [facility] Rx#: [id number] levETIRAcetam 500 mg In 105 / 105 Dextrose 5 % in Water 100 ml @ 420 mls/hr IV BID [facility] Rx#: [id number] Output: Urine 500 / 500 Other: # [...] signed by Julito Mosley MD> 11/18/24 1627 [facility] Work Phone: Consult note Author Neville Bush [facility] Note Date/Time November 18, 2024 5: 44pm [facility] EN[facility] [address] [place] [address] Neurology Consult Note Signed Patient: Aaron Olivarez MR#: [id number] : 1960 Acct:[id number] Age/Sex: 64 / M Adm Date: 5 Loc: Room: [address] [place] [address] Type: ADM IN Attending Dr: Yamila Donald MD Copies to: DO Sulaiman Mosquera DO Marwan Wassouf, MD~ HPI Consult Date: 11/18/24 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 Meds Medications and [...] Dung Chakraborty M.D.11/17/2024 8:43 AM Dictation Location: [place] [address] Head CTA 11/17/24 08:25 IMPRESSION: No evidence of focal stenosis, aneurysmal dilatation, dissection or occlusion. No evidence of acute traumatic injury. The cervical spine and upper thoracic spine are grossly intact. Impression dictated by: Dung Chakraborty M.D.11/17/2024 8:59 AM Dictation Location: [place] [address] Chest X-Ray 11/17/24 12:57 IMPRESSION: No acute cardiopulmonary pathology. Impression dictated by: Dung Chakraborty M.D.11/17/2024 1:26 PM Dictation Location: [place] [address] Assessment/Plan (1) Seizure: Plan CONSULT REASON: Seizure, [...] <Electronically signed by Neville Bush DO> 11/18/24 6401 [facility] Work Phone: Evaluation note* Diagnosis [...] cute Tobacco abuse acute Uncontrolled hypertension ac otoe-missouria [facility] Work Phone: Progress note Author Yamila Donald [facility] Note Date/Time November 19, 2024 3: 10am [facility] [address] [place] [address] Hospitalist Progress Note Signed Patient: Aaron Olivarez MR#: [id number] : 1960 Acct:[id number] Age/Sex: 64 / M Adm Date: 5 Loc: Room: 2O1461-1 Type: ADM IN Attending Dr: Yamila Donald [...] Lactated Ringers IV 11/18/24 17:34 70 mls/hr .[id number] CORBY Administration Levetiracetam 500 mg/ Dextrose 105 [...] Plan Documented By: Yamila Donald MD 11/18/24 7985 Signed By: <Electronically signed by Yamila Donald MD> 11/19/24 0310 [facility] Work Phone: Proffwdb note Author Neville Bush [facility] Note Date/Time November 19, 2024 6: 02pm [facility] ENTER [address] [place] [address] Neurology Progress Note Signed Patient: Aaron Olivarez MR#: [id number] : 1960 Acct:[id number] Age/Sex: 64 / M Adm Date: 5 Loc: Room: [address] [place] [address] Type: ADM IN Attending Dr: Yamila Donald [...] <Electronically signed by Neville Bush DO> 11/19/24 8342 [facility] Work Phone: Progress note Author Yamila Donald [facility] Note Date/Time November 20, 2024 3: 02am [facility] ENTER [address] [place] [address] Hospitalist Progress Note Signed Patient: Aaron Olivarez MR#: [id number] : 1960 Acct:[id number] Age/Sex: 64 / M Adm Date: 5 Loc: Room: [address] [place] [address] Type: ADM IN Attending Dr: Yamila Donald [...] signed by Yamila Donald MD> 11/20/24 0302 [facility] Work Phone: Progress note Author Yamila Donald [facility] Note Date/Time November 20, 2024 7: 21pm [facility] ENTER [address] [place] [address] Hospitalist Progress Note Signed Patient: Aaron Olivarez MR#: [id number] : 1960 Acct:[id number] Age/Sex: 64 / M Adm Date: 5 Loc: Room: [address] [place] [address] Type: ADM IN Attending Dr: Yamila Donald [...] Tablet PO 11/18/25 08:59 325 mg DAILY OCRBY Administration Atorvastatin Calcium 40 mg 11/17/24 21:00 [...] signed by Yamila Donald MD> 11/20/24 1921 [facility] Work Phone: Summary Purpose Family [...] section and content) DATE CREATED AUTHOR 05/01/2018 [facility] DATE CREATED AUTHOR AUTHOR'S ORGANIZ ATION 05/04/2018 [facility] DATE CREATED AUTHOR AUTHOR'S ORGANIZ ATION 05/07/2018 [facility] DATE CREATED AUTHOR AUTHOR'S ORGANIZ ATION 05/09/2018 [facility] DATE CREATED AUTHOR AUTHOR'S ORGANIZ ATION 07/04/2018 [facility] DATE CREATED AUTHOR AUTHOR'S ORGANIZ ATION 10/23/2018 [facility] DATE CREATED AUTHOR AUTHOR'S ORGANIZ ATION 11/28/2022 [facility] DATE CREATED AUTHOR AUTHOR'S ORGANIZ ATION 07/24/2024 [facility] DATE CREATED AUTHOR AUTHOR'S ORGANIZ ATION 11/24/2024 [facility] DATE CREATED AUTHOR AUTHOR'S ORGANIZ ATION 12/17/2024 [facility] Care Teams (unrecognized sec tion [...] 2024 End: November 21, 2024 Janie Amaro MINCEMEAT MAKER-C Other Provider Active Sta rt: November 18, 2024 End: November 21, 2024 Alejandra Montenegro APRN-SUPERVISOR HISTOLOGY-C Other Provider Active Start: November 18, 2024 [...] Sta rt: November 18, 2024 Alejandra Montenegro APRN-SUPERVISOR HISTOLOGY-C Other Provider Active Start: November 18, 2024 [...] Sta rt: November 17, 2024 Alejandra Montenegro APRN-SUPERVISOR HISTOLOGY-C Other Provider Active Start: November 17, 2024 [...] BE BASED ON THE PRIMARY CLINICAL RECORDS. [facility] [employer] [facility]. provides no warranty or guarantee of the accuracy or completeness of information in this document.
[2025-05-01] MEDS: LEVETIRACETAM 1,000 MG in 0.9 % SODIUM CHLORIDE 100 ML 440 MG IV (02:55)
[2025-05-01] MEDS: DIAZEPAM 10 MG/2 ML SYRINGE 5 MG IV ×2 (03:00→03:43)
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
--- NOTE | 2025-05-01 07:36 | PC.NURSE ---
pt has made it clear that he doesn't want any help. states he doesn't think the medicine will work -- and that he's not going to go to neurologist. dr zuniga in room speaking with pt right now
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
== END 2025-05-01 08:45 | disposition home or self-care (01) ==
PROVIDERS: Emergency Provider Internal Medicine
DX: G40.909 Epilepsy, unspecified, not intractable, without status epilepticus (principal); Z79.899 Other long term (current) drug therapy; Z91.148 Patient's other noncompliance with medication regimen for other reason
CPT/HCPCS: 36415; 70450; 80048; 80307; 80320; 81001; 85025; 93005; 96365; 96375; 96376; 99285; J1953; J3360

== ENCOUNTER 2025-06-07 07:31 | Emergency (ER) | payer MEDICARE, SELFPAY ==
--- OUTSIDE RECORDS SUMMARY | 2014-10-14 05:15 | XMS_ITS | Continuity of Care Document ---
Author Organization [facility] Address [address] [place] [address] Phone Care Team Providers Care Habilitative Interventionist Name Role Phone Garcia Ochoa MD Unavailable [...] Active Procedures Procedure Date FAC Office/outpatient visit, [facility], detail ed Advance Directives Directive Yes / No Effective Date File Name No Information Encounters Encounter Description Practice Location Reason(s) For Visit Diagnoses Date Provider Providers Copied on Encounter FAC Office/outpat ient visit, [facility], [facility], [facility] [place], [place], [id number], tel:[phone] spine pain (chief complaint) LBP 2 4 Gabriela Zelaya. [address] [place] [address], [facility], [place]. tel:[phone] [facility], [address] [place] [address], [id number], tel:[phone] AUB [facility] [employer] No Information 4 Gabriela Zelaya. [address] [place] [address], [facility], [place]. tel:[phone] Family History Family Member Type Diagnosis Age At Onset No Information Payers Payer name Insurance type Covered green party ID Authoriza tion(s) Medicare Part B [id number] Social History Type Description Quantity Date Captured [...]
[2025-06-07] VITALS (10 sets, daily range): BP systolic 128–189; BP diastolic 69–116; PULSE 44–89; TEMP 38.2; O2SAT 80–100; BMI 21.6
--- NOTE | 2025-06-07 07:40 | ECG_ITS ---
[facility] Test Date: 2025-06-07 Pat Name: AARON OLIVAREZ Department: Room: - Gender: Male Bibliographic Services Specialist: : 1960 Requested By: 1030 Order Number: [id number] Sylvie MD: JACKY SIU M.D. Measurements Intervals [place] Rate: 86 P: 90 NC: 188 QRS: 97 QRSD: 94 T: 99 QT: 368 QTc: 412 Interpretive Statements [address] ELEVATION, CONSIDER INFERIOR INJURY 6120 Possible right atrial enlargement 7102 Moderate right axis deviation STEMI 9150 abnormal ECG Compared to ECG 05/01/2025 00:37:43 Myocardial infarct finding now present Right-axis deviation now present Electronically Signed On 06-07-2025 8:49:17 EDT by JACKY SIU M.D.
--- NOTE | 2025-06-07 07:40 | CT_ITS ---
The [address] [address] Patient Name: AARON OLIVAREZ MRN: [id number] date: 1960 Sex: M Assigned Patient Location: ER Current Patient Location: .MAIN Accession/Order Number: [id number] Exam Date: 06/07/2025 08:27 Report Date: 06/07/2025 08:31 At the request of: ELEANOR BOYD MD Procedure: CT head/brain wo con CT BRAIN WITHOUT CONTRAST: CLINICAL HISTORY: Seizure COMPARISON: CT brain 05/01/2025 TECHNIQUE: Contiguous axial unenhanced images were obtained through the brain. This CT exam was performed using one or more following dose reduction techniques: Automated exposure control, adjustment of the mA and/or kV according to patient size, or use of iterative reconstruction technique. FINDINGS: There is no evidence of midline shift, intra or extra-axial fluid collection, hemorrhage or CT evidence of stroke. Cortical atrophy with chronic microvascular ischemic changes grossly similar to the prior study. 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 Posterior fossa appears unremarkable. Visualized intraorbital contents demonstrate no acute findings. Visualized paranasal sinuses are clear. The surrounding soft tissues are normal. CT/CT head/brain wo con IMPRESSION: NO ACUTE INTRACRANIAL ABNORMALITY. Impression dictated by: Patricio Velázquez Jr., D.O. 06/07/2025 8:31 AM Dictation Location: [place] [address] Electronically authenticated by: [id number] Y Date: 06/07/2025 08:31
--- NOTE | 2025-06-07 07:40 | XR_ITS ---
[place] [id number] Patient Name: AARON OLIVAREZ MRN: [id number] date: 1960 Sex: M Assigned Patient Location: ER Current Patient Location: ED.MAIN Accession/Order Number: [id number] Exam Date: 06/07/2025 08:26 Report Date: 06/07/2025 08:27 At the request of: ELEANOR BOYD MD Procedure: XR chest 1V Single view chest: CLINICAL HISTORY: Seizure COMPARISON: Chest 01/19/2025 FINDINGS: The heart is normal in size. The lungs are clear. The pulmonary vasculature is normal. Mediastinum and hilar regions are unremarkable. No pleural effusions are seen. Visualized bones are intact. Healed left-sided rib fractures. XR/XR chest 1V IMPRESSION: NEGATIVE CHEST. Impression dictated by: Patricio Velázquez Jr., D.O. 06/07/2025 8:27 AM [facility] Electron[facility] authenticated by: [id number] Y Date: 06/07/2025 08:27
--- OUTSIDE RECORDS SUMMARY | 2025-06-07 07:42 | XMS_ITS | Encounter Summary ---
Author Organization [facility] Address [address] [place] [address] Phone Care Team Providers Care Employment Programs Analyst Name Role Phone Sulaiman Feldman DO Primary Care Provider [phone] Encounter Details Date Type Department Care Team (Late st Contact Info) Description 11/17/2024 Scanned Document [facility] [address] [place] [id number] Scanning, Generic Provider Social History Tobacco Use Types Packs/Day Years Used Date Smoking Tobacco: Never Assessed Sex and Gender Information Value Date Recorded Sex Assigned at Not on file Legal Sex Male 10:09 AM EDT Gender Identity Not on file Sexual Orientation Not on file documented as of this encounter Plan of Treatment Not on file documented as of this encounter Procedures Procedure Name Priority Date/Time Associated Diagnosis Comments ECHOCARDIOGRAM 11/17/2024 documented in this encounter Results * Echocardiogram (11/17/2024) Narrative 11/17/2024 Ordered by an unspecified provider. us Generic Provider Scanning CV ECHO PROCEDURES Fin al Result documented in this encounter Visit Diagnoses Not on filedocumented in this encounter Care Teams Employment Programs Analyst Relationship Specialty Start Date End Date Sulaiman Feldman DO [address] [place] [address] PCP - General 11/29/24 documented as of this encounter
--- OUTSIDE RECORDS SUMMARY | 2025-06-07 07:42 | XMS_ITS | Clinical Summary ---
Author Organization [facility] Address [address] [place] [address] Phone Care Team Providers Care Sales Department Supervisor Name Role Phone Sulaiman Feldman Primary Care Provider [phone] Social History Tobacco Use Types Packs/Day Years Used Date Smoking Tobacco: Never Assessed Sex and Gender Information Value Date Recorded Sex Assigned at Not on file Legal Sex Male 10:09 AM EDT Gender Identity Not on file Sexual Orientation Not on file Plan of Treatment Health Maintenance Due Date Last Done Comments CT Colonography 1960 Colonoscopy 1960 Colorectal Cancer Screening 1960 FIT-DNA (Cologuard) 1960 FIT 1960 Lipid Panel 1960 Medicare Annual Wellness Vis it (AWV) 1960 Sigmoidoscopy 1960 MMR Vaccines (1 of 1 - Stand christi series) 1959 Diabetes Screening 1976 Hepatitis C Screening 1976 DTaP/Tdap/Td Vaccines (1 - Tdap) 1980 Pneumococcal Vaccine (1 of 1 - PCV) 2008 Zoster Vaccines (1 of 2) 2008 COVID-19 Vaccine (1 - 2023-2 5 season) 2024 Influenza Vaccine (#1) 2025 RSV High Risk: (Elderly (60+ ) or Population) (1 - 1-dose 75+ series) 2033 HIB Vaccines Aged Out No longer eligi ble based on patient's age to complete this topic HPV Vaccines Aged Out No longer eligi ble based on patient's age to complete this topic Hepatitis A Vaccines Aged Out No long er eligible based on patient's age to complete this topic Hepatitis B Vaccines Aged Out No long er eligible based on patient's age to complete this topic IPV Vaccines Aged Out No longer eligi ble based on patient's age to complete this topic Meningococcal Vaccine Aged Out No wilner chayito eligible based on patient's age to complete this topic Rotavirus Vaccines Aged Out No longer eligible based on patient's age to complete this topic Insurance [employer] Care Teams Sales Department Supervisor Relationship Specialty Start Date End Date Sulaiman Feldman DO [address] [facility] [place] [address] PCP - General 11/29/24
--- OUTSIDE RECORDS SUMMARY | 2025-06-07 07:42 | XMS_ITS | Encounter Summary ---
Author Organization [facility] Address [address] [place] [address] Phone Care Team Providers Care Tire Installer Name Role Phone Sulaiman Feldman DO Primary Care Provider [phone] Encounter Details Date Type Department Care Team (Late st Contact Info) Description 05/02/2024 Scanned Document [facility] [address] [place] [id number] Scanning, Generic Provider Social History Tobacco Use [...] Name Priority Date/Time Associated Diagnosis Comments ECHOCARDIOGRAM 05/02/2024 documented in this encounter Results * Echocardiogram (05/02/2024) Narrative 05/02/2024 Ordered by an unspecified provider. us Generic Provider Scanning CV ECHO PROCEDURES Fin al Result documented in this encounter Visit Diagnoses Not on filedocumented in this encounter Care Teams Tire Installer Relationship Specialty Start Date End Date Sulaiman Feldman DO [address] [place] [address] PCP - General 11/29/24 documented as of this encounter
--- OUTSIDE RECORDS SUMMARY | 2025-06-07 07:42 | XMS_ITS | Clinical Summary ---
Author Organization [facility] Address [address] [place] [address] Care Team Providers Care User Experience Architect Name Role Phone Thanh Kenney DO Unavailable [phone] Social History Tobacco Use Types Packs/Day Years Used Date Smoking Tobacco: Never Assessed Sex and Gender Information Value Date Recorded Sex Assigned at Not on file Legal Sex Male 2:37 PM EST Gender Identity Not on file Sexual Orientation Not on file Plan of Treatment Not on file Insurance [employer] Care Teams User Experience Architect Relationship Specialty Start Date End Date Thanh Kenney DO [address] [place] [address] Referring Physician Neurology 12/11/24
--- OUTSIDE RECORDS SUMMARY | 2025-06-07 07:42 | XMS_ITS | Encounter Summary ---
Author Organization [facility] [employer] [facility] Address [id number] [address] [place] [address] Care Team Providers Care Bilingual Trainer Name Role Phone No Pcp, No Pcp Primary Care Provider Unavailabl e Encounter Details Date Type Department Care Team (Late st Contact Info) Description 09/12/2019 Telephone [facility] [address] [place] [address] Lorie Ross, JAQUAN Social History Tobacco Use Types Packs/Day Years Used Date Smoking Tobacco: Every Day Cigarettes Smokeless Tobacco: Never Alcohol Use Standard Drinks/Week Comments No 0 (1 standard drink = 0.6 oz pur e alcohol) Childcare Answer Date Recorded Childcare Unknown 04/24/2019 Employment Answer Date Recorded Employment Unknown 04/24/2019 Sex and Gender Information Value Date Recorded Sex Assigned at Not on file Legal Sex Male 11:43 AM EDT Gender Identity Not on file Sexual Orientation Not on file documented as of this encounter Plan of Treatment Not on file documented as of this encounter Visit Diagnoses Not on filedocumented in this encounter Care Teams Bilingual Trainer Relationship Specialty Start Date End Date No Pcp, [place] [address] PCP - General Family Medicine 02/24/18 documented as of this encounter
--- OUTSIDE RECORDS SUMMARY | 2025-06-07 07:43 | XMS_ITS | CCD ---
Author Organization [facility] Care Team Providers Care Director External Communications Name Role Phone INDURTI, ELIAN V Unavailable [...] Admit Provider MD Kiko Maldonado Attending Provider [phone] MD Karley Nguyen Other Provider MD Patricio Galaviz Other Provider LEN Kent Other Provider [phone] DO Stevie Pichardo Jr Other Provider [phone] MD Danny Mills Other Provider MD Víctor [...] Other Provider Prem TREVIÑO-CJanie Other Provider Lan CHILD NURSE-INTERNATIONAL MANAGER-C, Alejandra Pantoja Other Provider Sulaiman Feldman DO Primary Care Provider Ragini Carmona DO Emergency Provider Chaz Frey MD Admit Provider Yamila Donald MD Attending Provider [phone] Donna Marcelo Other Provider Unavailable Ubaldo Giles, [place] Other Provider Sivan Francois DO Other Provider Reno Hubbard MD Other Provider Thanh Kenney DO Other Provider Neville Bush DO Other Provider Bella Cano APRN Other Provider Prem TREVIÑO-C, Janie Yates Other Provider Lan CHILD NURSE-INTERNATIONAL MANAGER-C, Alejandra Pantoja Other Provider NO PCP, NO [...] Propensity to adverse reactions to drug (disorder) [facility] Repository (1 source) Codeine; Translations: [CODEINE] [...] 11-24-2022 Episodic Other aftercare (1 source) Other snf (current) drug therapy; Translations: [OTH OPTOMECHANICAL ENGINEER CURRENT DRUG THERAPY] Onset: 11-28-2022 Episodic Other [...] 13.2 mmol/L Normal 6.0-15.0 e [facility] Comment on above: Performed By: #### C BCNO, BMP, MG #### [facility] [address] [id number] [place] Calcium [Mass/Vol] 9.7 mg/dL Normal 8.6-10.3 [facility] Comment on above: Performed By: #### C BCNO, BMP, MG #### [facility] [address] [id number] [place] Chloride [Moles/Vol] 105 mmol/L Normal 98-107 [facility] Comment on above: Performed By: #### C BCNO, BMP, MG #### [facility] [address] [place] [address] [place] CO2 [Moles/Vol] 25.2 mmol/L Normal 21.0-31.0 [facility] Comment on above: Performed By: #### C BCNO, BMP, MG #### [facility] [address] [place] [address] [place] Creatinine [Mass/Vol] 0.81 mg/dL Normal 0.70-1.30 [facility] Comment on above: Performed By: #### C BCNO, BMP, MG #### [facility] [address] [place] [address] [place] Creatinine Clr Calc Pharmacy 98.46 Normal [facility] Comment on above: Performed By: #### C BCNO, BMP, MG #### [facility] [address] [place] [address] [place] GFR/1.73 sq M.predicted MDRD (S/P/Bld) [Vol rate/Area] mL/min/{1.73_m2} Normal [facility] Comment on above: Performed By: #### C HATTIE, BMP, MG #### [facility] [address] [place] [address] [place] Glucose [Mass/Vol] 103 mg/dL High 70-100 [facility] Comment on above: Result Comment: [facility] Glucose Reference Range is dependent on time and content of last meal. Glucose of more than 200 mg/dL in a nonstressed, ambulatory subject supports the diagnosis of Diabetes Mellitus. ADA recommended reference range Performed By: #### C HATTIE BMP, MG #### [facility] [address] Potassium [Moles/Vol] 3.4 mmol/L Low 3.5-5.1 [facility] Comment on above: Performed By: #### C HATTIE BMP, MG #### [facility] [address] Sodium [Moles/Vol] 140 mmol/L Normal 136-145 [facility] Comment on above: Performed By: #### C HATTIE BMP, MG #### [facility] [address] Urea nitrogen [Mass/Vol] 19 mg/dL Normal 7-25 [facility] Comment on above: Performed By: #### C HATTIE BMP, MG #### [facility] [address] [place] [address] [place] Calcium [Mass/volume] in Ser um or PlasmaOrdered By: Yamila Donald on 11-19-2024 Calcium [Mass/Vol] Calcium [Mass/volume ] in Serum or Plasma 8.6-10.3 [facility] Carbon dioxide, total [Moles /volume] in Serum or PlasmaOrdered By: Yamila Donald on 11-19-2024 CO2 [Moles/Vol] Carbon dioxide, tota l [Moles/volume] in Serum or Plasma 21.0-31.0 [facility] Chloride [Moles/volume] in S andrei or PlasmaOrdered By: Yamila Donald on 11-19-2024 Chloride [Moles/Vol] Chloride [Moles/vol ume] in Serum or Plasma 98-107 [facility] Creatinine [Mass/volume] in Serum or PlasmaOrdered By: Yamila Donald on 11-19-2024 Creatinine [Mass/Vol] Creatinine [Mass/v olume] in Serum or Plasma 0.70-1.30 [facility] Erythrocyte distribution wid th Auto (RBC) [Ratio]Ordered By: Yamila Donald on 11-19-2024 Erythrocyte distribution width (RBC) [Ratio] Erythrocyte distribution width [Ratio] by Automated count 12.0-14.8 [facility] Glucose [Mass/volume] in Ser um or PlasmaOrdered By: Yamila Donald on 11-19-2024 Glucose [Mass/Vol] Glucose [Mass/volume ] in Serum or Plasma High 70-100 [facility] Comment on above: ADA recommended refe rence rangeRandom Glucose Reference Range is dependent on time and content of last meal. Glucose of more than 200 mg/dL in a nonstressed, ambulatory subject supports the diagnosis of Diabetes Mellitus. Hematocrit Auto (Bld) [Volum e fraction]Ordered By: Yamila Donald on 11-19-2024 Hematocrit (Bld) [Volume fraction] Hematocrit [Volume Fraction] of Blood by Automated count 38.8-50.0 [facility] Hemoglobin [Mass/volume] in BloodOrdered By: Yamila Donald on 11-19-2024 Hemoglobin (Bld) [Mass/Vol] Hemoglobin [Mass/volume] in Blood 13.0-17.0 [facility] Hemogram CBC Without Diffon 11-19-2024 Erythrocyte distribution width (RBC) [Ratio] 13.7 % Normal 12.0-14.8 [facility] Comment on above: Performed By: #### C BCNO, BMP, MG #### [address] Hematocrit (Bld) [Volume fraction] 45.8 % Normal 38.8-50.0 [facility] Comment on above: Performed By: #### C BCNO, BMP, MG #### [address] Hemoglobin (Bld) [Mass/Vol] 15.4 g/dL Normal 13.0-17.0 [facility] Comment on above: Performed By: #### C BCNO, BMP, MG #### [address] MCH (RBC) [Entitic mass] 29.0 pg Normal 27.5-35.2 [facility] Comment on above: Performed By: #### C BCNO, BMP, MG #### [address] MCV (RBC) [Entitic vol] 86.4 fL Normal 83.5-101 [facility] Comment on above: Performed By: #### C BCNO, BMP, MG #### [address] Mean Corpuscular HGB Conc 33.5 g/dL Normal 32.5-35.6 [facility] Comment on above: Performed By: #### C BCNO, BMP, MG #### [address] Platelet mean volume (Bld) [Entitic vol] 7.9 fL Normal 6.6-10.1 [facility] Comment on above: Result Comment: PERF ORMED BY: [place] [address] PATHOLOGIST DISHING MACHINE OPERATOR VÍCTOR LUCERO M.D. Performed By: #### C BCNO, BMP, MG #### [address] Platelets (Bld) [#/Vol] 203 10*3/uL Normal 150-450 [facility] Comment on above: Performed By: #### C BCNO, BMP, MG #### [address] RBC (Bld) [#/Vol] 5.31 10*6/uL Normal 3.90-5.60 [facility] Comment on above: Performed By: #### C BCNO, BMP, MG #### [facility] [address] WBC (Bld) [#/Vol] 8.2 10*3/uL Normal 4.1-10.5 [facility] Comment on above: Performed By: #### C BCNO, BMP, MG #### [facility] [address] Leukocytes [#/volume] correc srinivas for nucleated erythrocytes in Blood by Automated counOrdered By: Yamila Donald on 11-19-2024 WBC corrected for nucl RBC Auto (Bld) [#/Vol] Leukocytes [#/volume] corrected for nucleated erythrocytes in Blood by Automated coun 4.1-10.5 [facility] MCH Auto (RBC) [Entitic mass ]Ordered By: Yamila Donald on 11-19-2024 MCH (RBC) [Entitic mass] MCH [Entitic mass] by Automated count 27.5-35.2 [facility] MCHC Auto (RBC) [Mass/Vol]Or dered By: Yamila Donald on 11-19-2024 MCHC (RBC) [Mass/Vol] MCHC [Mass/volume] by Automated count 32.5-35.6 [facility] MCV Auto (RBC) [Entitic vol] Ordered By: Yamila Donald on 11-19-2024 MCV (RBC) [Entitic vol] MCV [Entitic volume] by Automated count 83.5-101 [facility] MR head/brain wo conon 11-19 MR head/brain wo con [facility] [place] [address] MRI Report Signed Patient: Aaron Olivarez MR#: [id number] 00 : 1960 Acct:[id number] Age/Sex: 64 / M ADM Date: 11/18/24 Loc: Room: [address] [place] [address] Type: ADM IN Attending Dr: Yamila Donald [...] Regino Mckinley M.D.11/19/2024 4:50 PM Dictation Location: [place] [address] Transcribed By: [facility] 11/19/24 1650 Dictated By: Reigno Mckinley MD 11/19/24 1644 Signed By: 11/19/24 1650 Normal [facility] Magnesiumon 11-19-2024 Magnesium [Mass/Vol] 1.7 mg/dL Low 1.9-2.7 [facility] Comment on above: Result Comment: PERF ORMED BY: [place] [address] PATHOLOGIST DISHING MACHINE OPERATOR VÍCTOR LUCERO M.D. Performed By: #### C BCNO, BMP, MG #### [address] Magnesium [Mass/volume] in S andrei or PlasmaOrdered By: Yamila Donald on 11-19-2024 Magnesium [Mass/Vol] Magnesium [Mass/vol ume] in Serum or Plasma Low 1.9-2.7 [facility] Magnetic resonance imaging r eportOrdered By: Regino Mckinley on 11-19-2024 Study report [facility] [address] [place], [place] [id number] MRI Report Signed Patient: Aaron Olivarez MR#: [id number] : 1960 Acct:[id number] Age/Sex: 64 / M ADM Date: 5 Loc: Room: [address] [place] [address] Type: ADM IN Attending Dr: Yamila Donald [...] Regino Mckinley M.D.11/19/2024 4:50 PM Dictation Location: [place] [address] Transcribed By: [facility] 11/19/24 165 Dictated By: Regino Mckinley MD 11/19/24 1645 Signed By: 11/19/24 1650 [facility] Work Phone: No Panel InformationOrdered By: Yamila Donald on 11-19-2024 Estimated GFR (CKD-EPI) > 60.0 mL/Min [facility] Creatinine Clearance (Chem 98.46 [facility] Platelet mean volume Auto (B ld) [Entitic vol]Ordered By: Yamila Donald on 11-19-2024 Platelet mean volume (Bld) [Entitic vol] Platelet mean volume [Entitic volume] in Blood by Automated count 6.6-10.1 [facility] Platelets Auto (Bld) [#/Vol] Ordered By: Yamila Donald on 11-19-2024 Platelets (Bld) [#/Vol] Platelets [#/volume] in Blood by Automated count 150-450 [facility] Potassium [Moles/volume] in Serum or PlasmaOrdered By: Yamila Donald on 11-19-2024 Potassium [Moles/Vol] Potassium [Moles/v olume] in Serum or Plasma Low 3.5-5.1 [facility] RBC Auto (Bld) [#/Vol]Ordere d By: Yamila Donald on 11-19-2024 RBC (Bld) [#/Vol] Erythrocytes [#/volu me] in Blood by Automated count 3.90-5.60 [facility] Serum or plasma anion gap de terminationOrdered By: Yamila Donald on 11-19-2024 Anion gap [Moles/Vol] Serum or plasma an ion gap determination 6.0-15.0 [facility] Sodium [Moles/volume] in Ser um or PlasmaOrdered By: Yamila Donald on 11-19-2024 Sodium [Moles/Vol] Sodium [Moles/volume ] in Serum or Plasma 136-145 [facility] Urea nitrogen [Mass/volume] in Serum or PlasmaOrdered By: Yamila Wassoeduar on 11-19-2024 Urea nitrogen [Mass/Vol] Urea nitrogen [Mass/volume] in Serum or Plasma 7-25 [facility] Alanine aminotransferase [En zymatic activity/volume] in Serum or PlasmaOrdered By: Chaz Frey on 11-18-2024 ALT [Catalytic activity/Vol] Alanine aminotransferase [Enzymatic activity/volume] in Serum or Plasma 7-52 [facility] Albumin [Mass/volume] in Ser um or Plasma by Bromocresol green (BCG) dye binding methoOrdered By: Chaz Frey on 11-18-2024 Albumin BCG dye [Mass/Vol] Albumin [Mass/volume] in Serum or Plasma by Bromocresol green (BCG) dye binding metho 3.5-5.7 [facility] Alkaline phosphatase [Enzyma tic activity/volume] in Serum or PlasmaOrdered By: Chaz Frey on 11-18-2024 ALP [Catalytic activity/Vol] Alkaline phosphatase [Enzymatic activity/volume] in Serum or Plasma 34-104 [facility] Aspartate aminotransferase [ Enzymatic activity/volume] in Serum or PlasmaOrdered By: Chaz Frey on 11-18-2024 AST [Catalytic activity/Vol] Aspartate aminotransferase [Enzymatic activity/volume] in Serum or Plasma 13-39 [facility] Basophils Auto (Bld) [#/Vol] Ordered By: Chaz Frey on 11-18-2024 Basophils (Bld) [#/Vol] Automated basophil count 0.0-0.2 [facility] Basophils/100 WBC Auto (Bld) Ordered By: Chaz Frey on 11-18-2024 Basophils/100 WBC (Bld) Automated basophil % . [facility] Bilirubin.total [Mass/volume ] in Serum or PlasmaOrdered By: Chaz Frey on 11-18-2024 Bilirubin [Mass/Vol] Bilirubin.total [Mass/volume] in Serum or Plasma High 0.3-1.0 [facility] Calcium [Mass/volume] in Ser um or PlasmaOrdered By: Chaz Frey on 11-18-2024 Calcium [Mass/Vol] Calcium [Mass/volume ] in Serum or Plasma 8.6-10.3 [facility] Carbon dioxide, total [Moles /volume] in Serum or PlasmaOrdered By: Chaz Frey on 11-18-2024 CO2 [Moles/Vol] Carbon dioxide, tota l [Moles/volume] in Serum or Plasma High 21.0-31.0 [facility] Chloride [Moles/volume] in S andrei or PlasmaOrdered By: Chaz Frey on 11-18-2024 Chloride [Moles/Vol] Chloride [Moles/vol ume] in Serum or Plasma 98-107 [facility] Complete Blood Count Auto Di ffon 11-18-2024 Basophils (Bld) [#/Vol] 0.0 10*3/uL Normal 0.0-0.2 [facility] Comment on above: Result Comment: PERF ORMED BY: [place] [address] PATHOLOGIST DISHING MACHINE OPERATOR VÍCTOR LUCERO M.D. Performed By: #### C BC, PT, PTT, CK, HS TROP, CMP, PRL #### [address] Basophils/100 WBC (Bld) 0.6 % Normal . [facility] Comment on above: Performed By: #### C BC, PT, PTT, CK, HS TROP, CMP, PRL #### [address] Eosinophils (Bld) [#/Vol] 0.0 10*3/uL Normal 0.0-0.45 [facility] Comment on above: Performed By: #### C BC, PT, PTT, CK, HS TROP, CMP, PRL #### [address] Eosinophils/100 WBC (Bld) 0.1 % Normal . [facility] Comment on above: Performed By: #### C BC, PT, PTT, CK, HS TROP, CMP, PRL #### [address] Erythrocyte distribution width (RBC) [Ratio] 13.3 % Normal 12.0-14.8 [facility] Comment on above: Performed By: #### C BC, PT, PTT, CK, HS TROP, CMP, PRL #### [address] Hematocrit (Bld) [Volume fraction] 43.0 % Normal 38.8-50.0 [facility] Comment on above: Performed By: #### C BC, PT, PTT, CK, HS TROP, CMP, PRL #### [address] Hemoglobin (Bld) [Mass/Vol] 14.6 g/dL Normal 13.0-17.0 [facility] Comment on above: Performed By: #### C BC, PT, PTT, CK, HS TROP, CMP, PRL #### [address] Lymphocytes (Bld) [#/Vol] 1.4 10*3/uL Normal 1.00-4.8 [facility] Comment on above: Performed By: #### C BC, PT, PTT, CK, HS TROP, CMP, PRL #### [address] Lymphocytes/100 WBC (Bld) 20.9 % Normal . [facility] Comment on above: Performed By: #### C BC, PT, PTT, CK, HS TROP, CMP, PRL #### [address] MCH (RBC) [Entitic mass] 29.1 pg Normal 27.5-35.2 [facility] Comment on above: Performed By: #### C BC, PT, PTT, CK, HS TROP, CMP, PRL #### [address] MCV (RBC) [Entitic vol] 85.8 fL Normal 83.5-101 [facility] Comment on above: Performed By: #### C BC, PT, PTT, CK, HS TROP, CMP, PRL #### [address] Mean Corpuscular HGB Conc 33.9 g/dL Normal 32.5-35.6 [facility] Comment on above: Performed By: #### C BC, PT, PTT, CK, HS TROP, CMP, PRL #### [address] Monocytes (Bld) [#/Vol] 0.6 10*3/uL Normal 0.0-0.8 [facility] Comment on above: Performed By: #### C BC, PT, PTT, CK, HS TROP, CMP, PRL #### [address] Monocytes/100 WBC (Bld) 8.5 % Normal . [facility] Comment on above: Performed By: #### C BC, PT, PTT, CK, HS TROP, CMP, PRL #### [address] Neutrophils (Bld) [#/Vol] 4.7 10*3/uL Normal 1.8-7.7 [facility] Comment on above: Performed By: #### C BC, PT, PTT, CK, HS TROP, CMP, PRL #### [address] Neutrophils/100 WBC (Bld) 69.9 % Normal . [facility] Comment on above: Performed By: #### C BC, PT, PTT, CK, HS TROP, CMP, PRL #### [address] NRBC% 0.1 /100{WBC} Normal 0-0.5 [facility] Comment on above: Performed By: #### C BC, PT, PTT, CK, HS TROP, CMP, PRL #### [address] Platelet mean volume (Bld) [Entitic vol] 7.6 fL Normal 6.6-10.1 [facility] Comment on above: Performed By: #### C BC, PT, PTT, CK, HS TROP, CMP, PRL #### [place] [address] [place] Platelets (Bld) [#/Vol] 216 10*3/uL Normal 150-450 [facility] Comment on above: Performed By: #### C BC, PT, PTT, CK, HS TROP, CMP, PRL #### [place] [address] [place] RBC (Bld) [#/Vol] 5.01 10*6/uL Normal 3.90-5.60 [facility] Comment on above: Performed By: #### C BC, PT, PTT, CK, HS TROP, CMP, PRL #### [address] WBC (Bld) [#/Vol] 6.7 10*3/uL Normal 4.1-10.5 [facility] Comment on above: Performed By: #### C BC, PT, PTT, CK, HS TROP, CMP, PRL #### [address] Comprehensive Metabolic Pane wilner 11-18-2024 Albumin [Mass/Vol] 3.9 g/dL Normal 3.5-5.7 [facility] Comment on above: Performed By: #### C BC, PT, PTT, CK, HS TROP, CMP, PRL #### [address] Albumin/Globulin [Mass ratio] 1.6 {ratio} Normal [facility] Comment on above: Performed By: #### C BC, PT, PTT, CK, HS TROP, CMP, PRL #### [address] ALP [Catalytic activity/Vol] 93 U/L Normal 34-104 [facility] Comment on above: Performed By: #### C BC, PT, PTT, CK, HS TROP, CMP, PRL #### [address] ALT [Catalytic activity/Vol] 10 U/L Normal 7-52 [facility] Comment on above: Performed By: #### C BC, PT, PTT, CK, HS TROP, CMP, PRL #### [address] Anion gap [Moles/Vol] 9.7 mmol/L Normal 6.0-15.0 [facility] Comment on above: Performed By: #### C BC, PT, PTT, CK, HS TROP, CMP, PRL #### [place] [address] AST [Catalytic activity/Vol] 16 U/L Normal 13-39 [facility] Comment on above: Performed By: #### C BC, PT, PTT, CK, HS TROP, CMP, PRL #### [address] Bilirubin [Mass/Vol] 1.2 mg/dL High 0.3-1.0 [facility] Comment on above: Performed By: #### C BC, PT, PTT, CK, HS TROP, CMP, PRL #### [address] Calcium [Mass/Vol] 9.4 mg/dL Normal 8.6-10.3 [facility] Comment on above: Performed By: #### C BC, PT, PTT, CK, HS TROP, CMP, PRL #### [address] Chloride [Moles/Vol] 105 mmol/L Normal 98-107 [facility] Comment on above: Performed By: #### C BC, PT, PTT, CK, HS TROP, CMP, PRL #### [address] CO2 [Moles/Vol] 31.4 mmol/L High 21.0-31.0 [facility] Comment on above: Performed By: #### C BC, PT, PTT, CK, HS TROP, CMP, PRL #### [address] Creatinine [Mass/Vol] 1.10 mg/dL Normal 0.70-1.30 [facility] Comment on above: Performed By: #### C BC, PT, PTT, CK, HS TROP, CMP, PRL #### [address] Creatinine Clr Calc Pharmacy 72.51 Normal [facility] Comment on above: Performed By: #### C BC, PT, PTT, CK, HS TROP, CMP, PRL #### [place] [address] [place] GFR/1.73 sq M.predicted MDRD (S/P/Bld) [Vol rate/Area] mL/min/{1.73_m2} Normal [facility] Comment on above: Performed By: #### C BC, PT, PTT, CK, HS TROP, CMP, PRL #### [address] Globulin (S) [Mass/Vol] 2.4 g/dL Normal [facility] Comment on above: Performed By: #### C BC, PT, PTT, CK, HS TROP, CMP, PRL #### [address] Glucose [Mass/Vol] 113 mg/dL High 70-100 [facility] Comment on above: Result Comment: [facility] Glucose Reference Range is dependent on time and content of last meal. Glucose of more than 200 mg/dL in a nonstressed, ambulatory subject supports the diagnosis of Diabetes Mellitus. ADA recommended reference range Performed By: #### C BC, PT, PTT, CK, HS TROP, CMP, PRL #### [address] Potassium [Moles/Vol] 4.1 mmol/L Normal 3.5-5.1 [facility] Comment on above: Performed By: #### C BC, PT, PTT, CK, HS TROP, CMP, PRL #### [address] Protein [Mass/Vol] 6.3 g/dL Low 6.4-8.9 [facility] Comment on above: Performed By: #### C BC, PT, PTT, CK, HS TROP, CMP, PRL #### [address] Sodium [Moles/Vol] 142 mmol/L Normal 136-145 [facility] Comment on above: Performed By: #### C BC, PT, PTT, CK, HS TROP, CMP, PRL #### [address] Urea nitrogen [Mass/Vol] 22 mg/dL Normal 7-25 [facility] Comment on above: Performed By: #### C BC, PT, PTT, CK, HS TROP, CMP, PRL #### [facility] [address] [place] [id number] [facility] Creatinine [Mass/volume] in Serum or PlasmaOrdered By: Chaz Frey on 11-18-2024 Creatinine [Mass/Vol] Creatinine [Mass/v olume] in Serum or Plasma 0.70-1.30 [facility] echo transthoracicon [facility] echo transthoracic [facility] [address] [place] [address] Echocardiogram Signed Patient: Aaron Olivarez MR#: [id number] 00 : 1960 Acct:[id number] Age/Sex: 64 / M ADM Date: 11/18/24 Loc: Room: [address] [place] [address] Type: ADM IN Attending Dr: Yamila Donald MD Ordering Provider: Chaz Frey MD Date of Service: 11/17/2404/06/1256 [facility] echo transthoracic: TIA Copies to: MD Chaz [...] MD 11/18/24 1643 Normal [facility] Eosinophils Auto (Bld) [#/Vo l]Ordered By: Chaz Frey on 11-18-2024 Eosinophils (Bld) [#/Vol] Automated eosinophil count 0.0-0.45 [facility] Eosinophils/100 WBC Auto (Bl d)Ordered By: Chaz rFey on 11-18-2024 Eosinophils/100 WBC (Bld) Automated eosinophil % . [facility] Erythrocyte distribution wid th Auto (RBC) [Ratio]Ordered By: Chaz Frey on 11-18-2024 Erythrocyte distribution width (RBC) [Ratio] Erythrocyte distribution width [Ratio] by Automated count 12.0-14.8 [facility] Globulin Calc (S) [Mass/Vol] Ordered By: Chaz Frey on 11-18-2024 Globulin (S) [Mass/Vol] Serum globulin measurement by calculation (mass/volume) [facility] Glucose [Mass/volume] in Ser um or PlasmaOrdered By: Chaz Frey on 11-18-2024 Glucose [Mass/Vol] Glucose [Mass/volume ] in Serum or Plasma High 70-100 [facility] Comment on above: ADA recommended refe rence rangeRandom Glucose Reference Range is dependent on time and content of last meal. Glucose of more than 200 mg/dL in a nonstressed, ambulatory subject supports the diagnosis of Diabetes Mellitus. Hematocrit Auto (Bld) [Volum e fraction]Ordered By: Chaz Frey on 11-18-2024 Hematocrit (Bld) [Volume fraction] Hematocrit [Volume Fraction] of Blood by Automated count 38.8-50.0 [facility] Hemoglobin [Mass/volume] in BloodOrdered By: Chaz Frey on 11-18-2024 Hemoglobin (Bld) [Mass/Vol] Hemoglobin [Mass/volume] in Blood 13.0-17.0 [facility] Leukocytes [#/volume] correc srinivas for nucleated erythrocytes in Blood by Automated counOrdered By: Chaz Frey on 11-18-2024 WBC corrected for nucl RBC Auto (Bld) [#/Vol] Leukocytes [#/volume] corrected for nucleated erythrocytes in Blood by Automated coun 4.1-10.5 [facility] Lymphocytes Auto (Bld) [#/Vo l]Ordered By: Chaz Frey on 11-18-2024 Lymphocytes (Bld) [#/Vol] Lymphocytes [#/volume] in Blood by Automated count 1.00-4.8 [facility] Lymphocytes/100 WBC Auto (Bl d)Ordered By: Chaz Frey on 11-18-2024 Lymphocytes/100 WBC (Bld) Lymphocytes/100 leukocytes in Blood by Automated count . [facility] MCH Auto (RBC) [Entitic mass ]Ordered By: Chaz Frey on 11-18-2024 MCH (RBC) [Entitic mass] MCH [Entitic mass] by Automated count 27.5-35.2 [facility] MCHC Auto (RBC) [Mass/Vol]Or dered By: Chaz Frey on 11-18-2024 MCHC (RBC) [Mass/Vol] MCHC [Mass/volume] by Automated count 32.5-35.6 [facility] MCV Auto (RBC) [Entitic vol] Ordered By: Chaz Frey on 11-18-2024 MCV (RBC) [Entitic vol] MCV [Entitic volume] by Automated count 83.5-101 [facility] Monocytes Auto (Bld) [#/Vol] Ordered By: Chaz Frey on 11-18-2024 Monocytes (Bld) [#/Vol] Automated blood monocyte count 0.0-0.8 [facility] Monocytes/100 WBC Auto (Bld) Ordered By: Chaz Frey on 11-18-2024 Monocytes/100 WBC (Bld) Automated monocyte % . [facility] Neutrophils Auto (Bld) [#/Vo l]Ordered By: Chaz Frey on 11-18-2024 Neutrophils (Bld) [#/Vol] Neutrophils [#/volume] in Blood by Automated count 1.8-7.7 [facility] Neutrophils/100 WBC Auto (Bl d)Ordered By: Chaz Frey on 11-18-2024 Neutrophils/100 WBC (Bld) Automated neutrophil % . [facility] No Panel InformationOrdered By: Chaz Frey on 11-18-2024 Estimated GFR (CKD-EPI) > 60.0 mL/Min [facility] Creatinine Clearance (Chem 72.51 [facility] Nucleated erythrocytes [Pres ence] in Blood by Automated countOrdered By: Chaz Frey on 11-18-2024 Nucleated RBC Auto Ql (Bld) Nucleated erythrocytes [Presence] in Blood by Automated count 0-0.5 [facility] Platelet mean volume Auto (B ld) [Entitic vol]Ordered By: Chaz Frey on 11-18-2024 Platelet mean volume (Bld) [Entitic vol] Platelet mean volume [Entitic volume] in Blood by Automated count 6.6-10.1 [facility] Platelets Auto (Bld) [#/Vol] Ordered By: Chaz Frey on 11-18-2024 Platelets (Bld) [#/Vol] Platelets [#/volume] in Blood by Automated count 150-450 [facility] Potassium [Moles/volume] in Serum or PlasmaOrdered By: Chaz Frey on 11-18-2024 Potassium [Moles/Vol] Potassium [Moles/v olume] in Serum or Plasma 3.5-5.1 [facility] Prolactinon 11-18-2024 Prolactin 16.14 ng/mL High 2.64-13.13 [facility] Comment on above: Result Comment: PERF ORMED BY: [place] [address] PATHOLOGIST DISHING MACHINE OPERATOR VÍCTOR LUCERO M.D. Performed By: #### C BC, PT, PTT, CK, HS TROP, CMP, PRL #### [facility] [address] Prolactin [Mass/volume] in S andrei or PlasmaOrdered By: Chaz Frey on 11-18-2024 Prolactin [Mass/Vol] Prolactin [Mass/vol ume] in Serum or Plasma High 2.64-13.13 [facility] Protein [Mass/volume] in Ser um or PlasmaOrdered By: Chaz Frey on 11-18-2024 Protein [Mass/Vol] Protein [Mass/volume ] in Serum or Plasma Low 6.4-8.9 [facility] RBC Auto (Bld) [#/Vol]Ordere d By: Chaz Frey on 11-18-2024 RBC (Bld) [#/Vol] Erythrocytes [#/volu me] in Blood by Automated count 3.90-5.60 [facility] Serum or plasma albumin/glob ulin mass ratioOrdered By: Chaz Frey on 11-18-2024 Albumin/Globulin [Mass ratio] Serum or plasma albumin/globulin mass ratio [facility] Serum or plasma anion gap de terminationOrdered By: Chaz Frey on 11-18-2024 Anion gap [Moles/Vol] Serum or plasma an ion gap determination 6.0-15.0 [facility] Sodium [Moles/volume] in Ser um or PlasmaOrdered By: Chaz Frey on 11-18-2024 Sodium [Moles/Vol] Sodium [Moles/volume ] in Serum or Plasma 136-145 [facility] Troponin I High Sensitivityo n 11-18-2024 Troponin I High Sensitivity 26.6 pg/mL High 0.0-20.0 [facility] Comment on above: Result Comment: PERF ORMED BY: [facility] [address] [place] [id number] PATHOLOGIST DISHING MACHINE OPERATOR VÍCTOR LUCERO M.D. Performed By: #### C BC, PT, PTT, CK, HS TROP, CMP, PRL #### [facility] [address] Troponin I.cardiac [Mass/vol ume] in Serum or Plasma by Detection limit <= 0.01 ng/Ordered By: Chaz Frey on 11-18-2024 Troponin I.cardiac DL <= 0.01 ng/mL [Mass/Vol] Troponin I.cardiac [Mass/volume] in Serum or Plasma by Detection limit <= 0.01 ng/ High 0.0-20.0 [facility] Urea nitrogen [Mass/volume] in Serum or PlasmaOrdered By: Chaz Frey on 11-18-2024 Urea nitrogen [Mass/Vol] Urea nitrogen [Mass/volume] in Serum or Plasma 7-25 [facility] WBC Auto (Bld) [#/Vol]Ordere d By: Chaz Frey on 11-18-2024 WBC (Bld) [#/Vol] Leukocytes [#/volume ] in Blood by Automated count 4.1-10.5 [facility] Amphetamine Screen Ql (U)Ord ered By: Ragini Carmona on 11-17-2024 Amphetamines Ql (U) Amphetamines screen High Negativ e [facility] Amphetamine cutoff [Mass/vol ume] in Urine for Confirmatory methodOrdered By: Chaz Frey on 11-17-2024 Amphetamine cutoff Confirm (U) [Mass/Vol] Amphetamine cutoff [Mass/volume] in Urine for Confirmatory method [id number] [facility] Amphetamine+Methamphetamine [Presence] in UrineOrdered By: Chaz Frey on 11-17-2024 Amphetamine+Methamphe tamine Ql (U) Amphetamine+Methamphetami ne [Presence] in Urine Abnormal [id number] [facility] Comment on above: Amphetamine test inc ludes Amphetamine and Methamphetamine. Amphetamines [Presence] in U rineOrdered By: Chaz Frey on 11-17-2024 Amphetamines Ql (U) Amphetamines [Presen ce] in Urine Abnormal . [facility] Amphetamines [Presence] in U rine by Screen methodOrdered By: Chaz Frey on 11-17-2024 Amphetamines Screen Ql (U) Amphetamines [Presence] in Urine by Screen method [id number] [facility] Comment on above: Amphetamine test inc ludes Amphetamine and Methamphetamine. Appearance of UrineOrdered B y: Ragini Carmona on 11-17-2024 Appearance (U) Urine appearance Clear [facility] Bacteria [Presence] in Urine by AutomatedOrdered By: Ragini Carmona on 11-17-2024 Bacteria Auto Ql (U) Bacteria [Presence] in Urine by Automated None Seen [facility] Barbiturates [Presence] in U rine by Screen methodOrdered By: Ragini Carmona on 11-17-2024 Barbiturates Screen Ql (U) Barbiturates [Presence] in Urine by Screen method [id number] [facility] Benzodiazepines Screen Ql (U )Ordered By: Ragini Carmona on 11-17-2024 Benzodiazepines Ql (U) Benzodiazepines [Presence] in Urine by Screen method High Negative [facility] Benzodiazepines [Presence] i n UrineOrdered By: Chaz Frey on 11-17-2024 Benzodiazepines Ql (U) Benzodiazepines [Presence] in Urine [id number] [facility] Benzoylecgonine [Presence] i n Urine by Screen methodOrdered By: Ragini Carmona on 11-17-2024 Benzoylecgonine Screen Ql (U) Benzoylecgonine [Presence] in Urine by Screen method Negative [facility] Bilirubin Test strip Ql (U)O rdered By: Ragini Carmona on 11-17-2024 Bilirubin Ql (U) Bilirubin.total [Presence] in Urine by Test strip Negative [facility] CT angio neckon 11-17-2024 CT angio neck [facility] [place] [address] CT Scan Report Signed Patient: Aaron Olivarez MR#: [id number] 00 : 1960 Acct:[id number] Age/Sex: 64 / M ADM Date: 11/17/24 Loc: ER Room: Type: PRE ER Attending Dr: Copies to: Ragini Carmona DO Ordering Provider: Ragini M Tupa, DO Date of Service: 11/17/24 CT/CT angio head: cva ([id number]) CT/CT angio neck: cva CT angio head, [...] Dung Chakraborty M.D.11/17/2024 8:59 AM Dictation Location: [place] [address] Transcribed By: [facility] 11/17/24 0859 Dictated By: Dung Chakraborty II, MD 11/17/24 0852 Signed By: 11/17/24 0859 Normal [facility] CT head stroke alert wo cono n 11-17-2024 CT head stroke alert wo con [facility] [address] [place] [address] [place] [address] CT Scan Report Signed Patient: Aaron Olivarez MR#: [id number] 00 : 1960 Acct:[id number] Age/Sex: 64 / M ADM Date: 11/17/24 [...] Dung Chakraborty M.D.11/17/2024 8:43 AM Dictation Location: [place] [address] Transcribed By: YNES 11/17/24 0843 Dictated By: Dung Chakraborty II, MD 11/17/24 0837 Signed By: 11/17/24 0843 Normal [facility] Cannabinoids [Mass/volume] i n Urine by Confirmatory methodOrdered By: Chaz Frey on 11-17-2024 Cannabinoids Confirm (U) [Mass/Vol] Cannabinoids [Mass/volume] in Urine by Confirmatory method Cutoff=50 [facility] Cannabinoids [Presence] in U rine by Screen methodOrdered By: Ragini Carmona on 11-17-2024 Cannabinoids Screen Ql (U) Cannabinoids [Presence] in Urine by Screen method Cutoff=50 [facility] Comment on above: These are unconfirme d results and should not be used for legal purposes. Drug Cut-Off Concentration: AMPH 1000 ng/mL BHASKAR 200 ng/mL RIKKI 200 ng/mL COCM 300 ng/mL OP 300 ng/mL PCP 25 ng/mL THC 20 ng/mL Color Auto (U)Ordered By: Noe Carmona on 11-17-2024 Color (U) Color of Urine by Auto Yellow Fi [facility] Complete Blood Count Auto Di ffon 11-17-2024 Basophils (Bld) [#/Vol] 0.0 10*3/uL Normal 0.0-0.2 [facility] Comment on above: Result Comment: PERF ORMED BY: [place] [address] PATHOLOGIST DISHING MACHINE OPERATOR VÍCTOR LUCERO M.D. Performed By: #### C BC, PT, PTT, CK, HS TROP, CMP, PRL #### [address] Basophils/100 WBC (Bld) 0.4 % Normal . [facility] Comment on above: Performed By: #### C BC, PT, PTT, CK, HS TROP, CMP, PRL #### [address] Eosinophils (Bld) [#/Vol] 0.0 10*3/uL Normal 0.0-0.45 [facility] Comment on above: Performed By: #### C BC, PT, PTT, CK, HS TROP, CMP, PRL #### [address] Eosinophils/100 WBC (Bld) 0.1 % Normal . [facility] Comment on above: Performed By: #### C BC, PT, PTT, CK, HS TROP, CMP, PRL #### [address] Erythrocyte distribution width (RBC) [Ratio] 13.6 % Normal 12.0-14.8 [facility] Comment on above: Performed By: #### C BC, PT, PTT, CK, HS TROP, CMP, PRL #### [address] Hematocrit (Bld) [Volume fraction] 46.4 % Normal 38.8-50.0 [facility] Comment on above: Performed By: #### C BC, PT, PTT, CK, HS TROP, CMP, PRL #### [address] Hemoglobin (Bld) [Mass/Vol] 15.6 g/dL Normal 13.0-17.0 [facility] Comment on above: Performed By: #### C BC, PT, PTT, CK, HS TROP, CMP, PRL #### [address] Lymphocytes (Bld) [#/Vol] 0.4 10*3/uL Low 1.00-4.8 [facility] Comment on above: Performed By: #### C BC, PT, PTT, CK, HS TROP, CMP, PRL #### [address] Lymphocytes/100 WBC (Bld) 4.4 % Normal . [facility] Comment on above: Performed By: #### C BC, PT, PTT, CK, HS TROP, CMP, PRL #### [address] MCH (RBC) [Entitic mass] 28.8 pg Normal 27.5-35.2 [facility] Comment on above: Performed By: #### C BC, PT, PTT, CK, HS TROP, CMP, PRL #### [address] MCV (RBC) [Entitic vol] 85.6 fL Normal 83.5-101 [facility] Comment on above: Performed By: #### C BC, PT, PTT, CK, HS TROP, CMP, PRL #### [address] Mean Corpuscular HGB Conc 33.6 g/dL Normal 32.5-35.6 [facility] Comment on above: Performed By: #### C BC, PT, PTT, CK, HS TROP, CMP, PRL #### [address] Monocytes (Bld) [#/Vol] 0.3 10*3/uL Normal 0.0-0.8 [facility] Comment on above: Performed By: #### C BC, PT, PTT, CK, HS TROP, CMP, PRL #### [address] Monocytes/100 WBC (Bld) 15.39 % Normal 0.00-20.00 [facility] Comment on above: Performed By: #### C BC, PT, PTT, CK, HS TROP, CMP, PRL #### [address] Monocytes/100 WBC (Bld) 3.3 % Normal . [facility] Comment on above: Performed By: #### C BC, PT, PTT, CK, HS TROP, CMP, PRL #### [place] [address] [place] Neutrophils (Bld) [#/Vol] 9.2 10*3/uL High 1.8-7.7 [facility] Comment on above: Performed By: #### C BC, PT, PTT, CK, HS TROP, CMP, PRL #### [address] Neutrophils/100 WBC (Bld) 91.8 % Normal . [facility] Comment on above: Performed By: #### C BC, PT, PTT, CK, HS TROP, CMP, PRL #### [address] NRBC% 0.1 /100{WBC} Normal 0-0.5 [facility] Comment on above: Performed By: #### C BC, PT, PTT, CK, HS TROP, CMP, PRL #### [address] Platelet mean volume (Bld) [Entitic vol] 7.3 fL Normal 6.6-10.1 [facility] Comment on above: Performed By: #### C BC, PT, PTT, CK, HS TROP, CMP, PRL #### [address] Platelets (Bld) [#/Vol] 280 10*3/uL Normal 150-450 [facility] Comment on above: Performed By: #### C BC, PT, PTT, CK, HS TROP, CMP, PRL #### [address] RBC (Bld) [#/Vol] 5.42 10*6/uL Normal 3.90-5.60 [facility] Comment on above: Performed By: #### C BC, PT, PTT, CK, HS TROP, CMP, PRL #### [address] WBC (Bld) [#/Vol] 10.1 10*3/uL Normal 4.1-10.5 [facility] Comment on above: Performed By: #### C BC, PT, PTT, CK, HS TROP, CMP, PRL #### [address] Comprehensive Metabolic Pane wilner 11-17-2024 Albumin [Mass/Vol] 4.2 g/dL Normal 3.5-5.7 [facility] Comment on above: Performed By: #### C BC, PT, PTT, CK, HS TROP, CMP, PRL #### [address] Albumin/Globulin [Mass ratio] 1.7 {ratio} Normal [facility] Comment on above: Performed By: #### C BC, PT, PTT, CK, HS TROP, CMP, PRL #### [address] ALP [Catalytic activity/Vol] 95 U/L Normal 34-104 [facility] Comment on above: Performed By: #### C BC, PT, PTT, CK, HS TROP, CMP, PRL #### [address] ALT [Catalytic activity/Vol] 12 U/L Normal 7-52 [facility] Comment on above: Performed By: #### C BC, PT, PTT, CK, HS TROP, CMP, PRL #### [address] Anion gap [Moles/Vol] 13.0 mmol/L Normal 6.0-15.0 [facility] Comment on above: Performed By: #### C BC, PT, PTT, CK, HS TROP, CMP, PRL #### [address] AST [Catalytic activity/Vol] 24 U/L Normal 13-39 [facility] Comment on above: Performed By: #### C BC, PT, PTT, CK, HS TROP, CMP, PRL #### [address] Bilirubin [Mass/Vol] 0.6 mg/dL Normal 0.3-1.0 [facility] Comment on above: Performed By: #### C BC, PT, PTT, CK, HS TROP, CMP, PRL #### [address] Calcium [Mass/Vol] 9.1 mg/dL Normal 8.6-10.3 [facility] Comment on above: Performed By: #### C BC, PT, PTT, CK, HS TROP, CMP, PRL #### [address] Chloride [Moles/Vol] 104 mmol/L Normal 98-107 [facility] Comment on above: Performed By: #### C BC, PT, PTT, CK, HS TROP, CMP, PRL #### [address] CO2 [Moles/Vol] 29.2 mmol/L Normal 21.0-31.0 [facility] Comment on above: Performed By: #### C BC, PT, PTT, CK, HS TROP, CMP, PRL #### [address] Creatinine [Mass/Vol] 1.27 mg/dL Normal 0.70-1.30 [facility] Comment on above: Performed By: #### C BC, PT, PTT, CK, HS TROP, CMP, PRL #### [address] GFR/1.73 sq M.predicted MDRD (S/P/Bld) [Vol rate/Area] mL/min/{1.73_m2} Normal [facility] Comment on above: Performed By: #### C BC, PT, PTT, CK, HS TROP, CMP, PRL #### [address] Globulin (S) [Mass/Vol] 2.5 g/dL Normal [facility] Comment on above: Performed By: #### C BC, PT, PTT, CK, HS TROP, CMP, PRL #### [address] Glucose [Mass/Vol] 163 mg/dL High 70-100 [facility] Comment on above: Result Comment: [facility] Glucose Reference Range is dependent on time and content of last meal. Glucose of more than 200 mg/dL in a nonstressed, ambulatory subject supports the diagnosis of Diabetes Mellitus. ADA recommended reference range Performed By: #### C BC, PT, PTT, CK, HS TROP, CMP, PRL #### [address] Potassium [Moles/Vol] 4.2 mmol/L Normal 3.5-5.1 [facility] Comment on above: Performed By: #### C BC, PT, PTT, CK, HS TROP, CMP, PRL #### [address] Protein [Mass/Vol] 6.7 g/dL Normal 6.4-8.9 [facility] Comment on above: Performed By: #### C BC, PT, PTT, CK, HS TROP, CMP, PRL #### [address] Sodium [Moles/Vol] 142 mmol/L Normal 136-145 [facility] Comment on above: Performed By: #### C BC, PT, PTT, CK, HS TROP, CMP, PRL #### [address] Urea nitrogen [Mass/Vol] 16 mg/dL Normal 7-25 [facility] Comment on above: Performed By: #### C BC, PT, PTT, CK, HS TROP, CMP, PRL #### [address] Creatine Kinaseon 11-17-2024 CK [Catalytic activity/Vol] 134 U/L Normal 30-223 [facility] Comment on above: Performed By: #### C BC, PT, PTT, CK, HS TROP, CMP, PRL #### [address] Creatine kinase [Enzymatic a ctivity/volume] in Serum or PlasmaOrdered By: Ragini Carmona on 11-17-2024 CK [Catalytic activity/Vol] Creatine kinase [Enzymatic activity/volume] in Serum or Plasma 30- [facility] Dipstick and Microscopicon 0 11-17-2024 Appearance (U) Clear Normal Clear [facility] Comment on above: Order Comment: Name Collection Type:: Clean-Voided Midstream Performed By: #### C BC, PT, PTT, CK, HS TROP, CMP, PRL #### [address] Bacteria,Urine None Seen Normal None Seen [facility] Comment on above: Order Comment: Name Collection Type:: Clean-Voided Midstream Performed By: #### C BC, PT, PTT, CK, HS TROP, CMP, PRL #### [facility] [address] [place] [address] [place] Bilirubin,Urine Negative Normal Negative [facility] Comment on above: Order Comment: Name Collection Type:: Clean-Voided Midstream Performed By: #### C BC, PT, PTT, CK, HS TROP, CMP, PRL #### [facility] [address] Color (U) Yellow Normal Yellow [facility] Comment on above: Order Comment: Name Collection Type:: Clean-Voided Midstream Performed By: #### C BC, PT, PTT, CK, HS TROP, CMP, PRL #### [address] Glucose Ql (U) 70 mg/dL High Normal [facility] Comment on above: Order Comment: Name Collection Type:: Clean-Voided Midstream Performed By: #### C BC, PT, PTT, CK, HS TROP, CMP, PRL #### [address] Hyaline Casts,Urine None Normal 0-8 [facility] Comment on above: Order Comment: Name Collection Type:: Clean-Voided Midstream Performed By: #### C BC, PT, PTT, CK, HS TROP, CMP, PRL #### [place] [address] [place] Ketones Ql (U) Negative Normal Negative [facility] Comment on above: Order Comment: Name Collection Type:: Clean-Voided Midstream Performed By: #### C BC, PT, PTT, CK, HS TROP, CMP, PRL #### [place] [address] [place] Leukocyte esterase Test strip Ql (U) Negative Normal Negative [facility] Comment on above: Order Comment: Name Collection Type:: Clean-Voided Midstream Performed By: #### C BC, PT, PTT, CK, HS TROP, CMP, PRL #### [place] [address] [place] Mucus,Urine Rare Normal [facility] Comment on above: Order Comment: Name Collection Type:: Clean-Voided Midstream Result Comment: PERF ORMED BY: [place] [address] PATHOLOGIST DISHING MACHINE OPERATOR VÍCTOR LUCERO M.D. Performed By: #### C BC, PT, PTT, CK, HS TROP, CMP, PRL #### [address] Nitrite,Urine Negative Normal Negative [facility] Comment on above: Order Comment: Name Collection Type:: Clean-Voided Midstream Performed By: #### C BC, PT, PTT, CK, HS TROP, CMP, PRL #### [address] Occult Blood,Urine Negative Normal Negative [facility] Comment on above: Order Comment: Name Collection Type:: Clean-Voided Midstream Performed By: #### C BC, PT, PTT, CK, HS TROP, CMP, PRL #### [address] pH (U) 6.5 [pH] Normal 5.0-9.0 [facility] [facility] Comment on above: Order Comment: Name Collection Type:: Clean-Voided Midstream Performed By: #### C BC, PT, PTT, CK, HS TROP, CMP, PRL #### [address] Protein (U) [Mass/Vol] 70 mg/dL High Negative [facility] Comment on above: Order Comment: Name Collection Type:: Clean-Voided Midstream Performed By: #### C BC, PT, PTT, CK, HS TROP, CMP, PRL #### [address] RBC,Urine 3 [HPF] Normal 0-4 [facility] Comment on above: Order Comment: Name Collection Type:: Clean-Voided Midstream Performed By: #### C BC, PT, PTT, CK, HS TROP, CMP, PRL #### [address] Specificy [place],Urine >1.050 High 1.001-1.030 [facility] Comment on above: Order Comment: Name Collection Type:: Clean-Voided Midstream Result Comment: Rech ecked by refractometer Performed By: #### C BC, PT, PTT, CK, HS TROP, CMP, PRL #### [address] Squamous Epithelial Cell,Urine 1 [HPF] Normal 0-2 [facility] Comment on above: Order Comment: Name Collection Type:: Clean-Voided Midstream Performed By: #### C BC, PT, PTT, CK, HS TROP, CMP, PRL #### [address] Urobilinogen,Urine Normal Normal Normal [facility] Comment on above: Order Comment: Name Collection Type:: Clean-Voided Midstream Performed By: #### C BC, PT, PTT, CK, HS TROP, CMP, PRL #### [address] WBC,Urine 1 [HPF] Normal 0-4 [facility] Comment on above: Order Comment: Name Collection Type:: Clean-Voided Midstream Performed By: #### C BC, PT, PTT, CK, HS TROP, CMP, PRL #### [address] Drug Screen,Urineon 11-17-19 25 Amphetamine Screen,Urine Positive High Negative [facility] Comment on above: Performed By: #### C BC, PT, PTT, CK, HS TROP, CMP, PRL #### [address] Barbiturate Screen,Urine Negative Normal Negative [facility] Comment on above: Performed By: #### C BC, PT, PTT, CK, HS TROP, CMP, PRL #### [address] Benzodiazepines Screen,Urine Positive High Negative [facility] Comment on above: Performed By: #### C BC, PT, PTT, CK, HS TROP, CMP, PRL #### [address] Cannabinoid Screen,Urine Positive High Negative [facility] Comment on above: Result Comment: Thes e are unconfirmed results and should not be used for legal purposes. Drug Cut-Off Concentration: AMPH 1000 ng/mL BHASKAR 200 ng/mL RIKKI 200 ng/mL COCM 300 ng/mL OP 300 ng/mL PCP 25 ng/mL THC 20 ng/mL PERFORMED BY: [place] [address] PATHOLOGIST DISHING MACHINE OPERATOR VÍCTOR LUCERO M.D. Performed By: #### C BC, PT, PTT, CK, HS TROP, CMP, PRL #### [address] Cocaine Screen,Urine Negative Normal Negative [facility] Comment on above: Performed By: #### C BC, PT, PTT, CK, HS TROP, CMP, PRL #### [address] Opiate Screen,Urine Negative Normal Negative [facility] Comment on above: Performed By: #### C BC, PT, PTT, CK, HS TROP, CMP, PRL #### [address] Phencyclidine Screen,Urine Negative Normal Negative [facility] Comment on above: Performed By: #### C BC, PT, PTT, CK, HS TROP, CMP, PRL #### [address] ECG 12 lead ECGon 11-17-2024 ECG 12 lead ECG [facility] [address] [place] [address] Electrocardiograph Report Signed Patient: Aaron Olivarez MR#: [id number] 00 : 1960 Acct:[id number] Age/Sex: 64 / M ADM Date: 11/17/24 Loc: Room: [address] [place] [address] Type: ADM INOo Attending Dr: Chaz Frey [...] Carmona DO 1445 Normal [facility] Epithelial cells.squamous [# /area] in Urine sediment by Automated countOrdered By: Ragini Carmona on 11-17-2024 Epithelial cells.squamous Auto (Urine sed) [#/Area] Epithelial cells.squamous [#/area] in Urine sediment by Automated count 0-2 [facility] Erythrocyte Sedimentation Ra irene 11-17-2024 ESR (Bld) [Velocity] 2 mm/h Normal 0-19 [facility] Comment on above: Result Comment: PERF ORMED BY: [place] [address] PATHOLOGIST DISHING MACHINE OPERATOR VÍCTOR LUCERO M.D. Performed By: #### C BC, PT, PTT, CK, HS TROP, CMP, PRL #### [facility] [address] [place] [address] Erythrocyte sedimentation ra te by Photometric methodOrdered By: Chaz Frey on 11-17-2024 ESR Photometric method (Bld) [Velocity] Erythrocyte sedimentation rate by Photometric method 0-19 [facility] Erythrocytes [#/area] in Uri ne sediment by Automated countOrdered By: Ragini Carmona on 11-17-2024 RBC Auto (Urine sed) [#/Area] Erythrocytes [#/area] in Urine sediment by Automated count 0-4 [facility] Ethanol [Mass/volume] in Ser um or PlasmaOrdered By: Ragini Carmona on 11-17-2024 Ethanol [Mass/Vol] Ethanol [Mass/volume ] in Serum or Plasma [facility] Comment on above: Test not performed Ethyl Alcohol Profileon Ethanol [Mass/Vol] mg/dL Normal [facility] Comment on above: Performed By: #### C BC, PT, PTT, CK, HS TROP, CMP, PRL #### [facility] [address] [place] [address] [place] Percent Ethanol Not performed Normal [facility] Comment on above: Result Comment: PERF ORMED BY: [facility] [address] [place] [address] PATHOLOGIST DISHING MACHINE OPERATOR VÍCTOR LUCERO M.D. Performed By: #### C BC, PT, PTT, CK, HS TROP, CMP, PRL #### [facility] [address] [place] [address] [facility] Glucose Glucometer (BldC) [M ass/Vol]Ordered By: Ragini Carmona on 11-17-2024 Glucose [Mass/Vol] Capillary blood gluc ose measurement by glucometer (mass/volume) [facility] Comment on above: Random Glucose Refer ence Range is dependent on time and content of last meal. Glucose of more than 200 mg/dL in a nonstressed, ambulatory subject supports the diagnosis of Diabetes Mellitus. Glucose Poct Glucometerson 0 11-17-2024 Glucose [Mass/Vol] 175 mg/dL Normal [facility] Comment on above: Result Comment: [place] Glucose Reference Range is dependent on time and content of last meal. Glucose of more than 200 mg/dL in a nonstressed, ambulatory subject supports the diagnosis of Diabetes Mellitus. PERFORMED BY: [facility] [address] [facility] [place] [address] PATHOLOGIST DISHING MACHINE OPERATOR VÍCTOR LUCERO M.D. Performed By: #### C BC, PT, PTT, CK, HS TROP, CMP, PRL #### [facility] [address] [place] [address] [facility] Glucose [Mass/volume] in Uri ne by Test stripOrdered By: Ragini Carmona on 11-17-2024 Glucose Test strip (U) [Mass/Vol] Glucose [Mass/volume] in Urine by Test strip High Normal [facility] Hemoglobin Test strip Ql (U) Ordered By: Ragini Carmona on 11-17-2024 Hemoglobin Ql (U) Hemoglobin [Presence ] in Urine by Test strip Negative [facility] Hyaline casts [#/area] in Ur ine sediment by Automated countOrdered By: Ragini Carmona on 11-17-2024 Hyaline casts Auto (Urine sed) [#/Area] Hyaline casts [#/area] in Urine sediment by Automated count 0-8 [facility] INR in Platelet poor plasma by Coagulation assayOrdered By: Ragini Carmona on 11-17-2024 INR Coag (PPP) [Relative time] INR in Platelet poor plasma by Coagulation assay [facility] Comment on above: INR Therapeutic Rang e [...] i n Urine by Test strip Negative [facility] Leukocyte esterase [Presence ] in Urine by Test stripOrdered By: Ragini Carmona on 11-17-2024 Leukocyte esterase Test strip Ql (U) Leukocyte esterase [Presence] in Urine by Test strip Negative [facility] Leukocytes [#/area] in Urine sediment by Automated countOrdered By: Ragini Carmona on 11-17-2024 WBC Auto (Urine sed) [#/Area] Leukocytes [#/area] in Urine sediment by Automated count 0-4 [facility] Magnesiumon 11-17-2024 Magnesium [Mass/Vol] 1.9 mg/dL Normal 1.9-2.7 [facility] Comment on above: Order Comment: Comme nt add on Result Comment: PERF ORMED BY: [facility] [address] [place] [address] PATHOLOGIST DISHING MACHINE OPERATOR VÍCTOR LUCERO M.D. Performed By: #### C BC, PT, PTT, CK, HS TROP, CMP, PRL #### [facility] [address] Magnesium [Mass/volume] in S andrei or PlasmaOrdered By: Chaz Frey on 11-17-2024 Magnesium [Mass/Vol] Magnesium [Mass/vol ume] in Serum or Plasma 1.9-2.7 [facility] Methamphetamine [Presence] i n UrineOrdered By: Chaz Frey on 11-17-2024 Methamphetamine Ql (U) Methamphetamine [Presence] in Urine Abnormal . [facility] Methamphetamine cutoff [Mass /volume] in Urine for Confirmatory methodOrdered By: Chaz Frey on 11-17-2024 Methamphetamine cutoff Confirm (U) [Mass/Vol] Methamphetamine cutoff [Mass/volume] in Urine for Confirmatory method Bcquqw=152 [facility] Monocyte distribution width [Entitic volume] in Blood by AutomatedOrdered By: Ragini Carmona on 11-17-2024 Monocyte distribution width Auto (Bld) [Entitic vol] Monocyte distribution width [Entitic volume] in Blood by Automated 0.00-20.00 [facility] Mucus [Presence] in Urine by AutomatedOrdered By: Ragini Carmona on 11-17-2024 Mucus Auto Ql (U) Mucus [Presence] in Urine by Automated [facility] Nitrite Test strip Ql (U)Ord ered By: Ragini Carmona on 11-17-2024 Nitrite Ql (U) Nitrite [Presence] i n Urine by Test strip Negative [facility] Opiates [Presence] in UrineO rdered By: Chaz Frey on 11-17-2024 Opiates Ql (U) Opiates [Presence] i n Urine Uqwjhd=354 [facility] Comment on above: Opiate test includes Codeine and Morphine only. Opiates [Presence] in Urine by Screen methodOrdered By: Ragini Carmona on 11-17-2024 Opiates Screen Ql (U) Opiates [Presence] in Urine by Screen method Negative [facility] Partial Thromboplastin Timeo n 11-17-2024 aPTT Coag (Bld) [Time] 22.3 s Low 25.1-36.5 [facility] Comment on above: Result Comment: A he matocrit value greater than 55% may lead to inaccurate results in coagulation testing. Patients having hematocrit values >55% require a special collection tube for coagulation studies. Please contact the laboratory at [phone] for redraw instructions. PERFORMED BY: [place] [id number] PATHOLOGIST DISHING MACHINE OPERATOR VÍCTOR LUCERO M.D. Performed By: #### C BC, PT, PTT, CK, HS TROP, CMP, PRL #### [address] [address] [facility] Phencyclidine Screen Ql (U)O rdered By: Ragini Carmona on 11-17-2024 Phencyclidine Ql (U) Phencyclidine [Pres ence] in Urine by Screen method Negative [facility] Phencyclidine [Presence] in UrineOrdered By: Chaz Frey on 11-17-2024 Phencyclidine Ql (U) Phencyclidine [Pres ence] in Urine Cutoff=25 [facility] Comment on above: Performed at: [facility] [id number] [place], [place] [id number] Director: Adenike Panchal PhD, Phone: [phone] Prolactinon 11-17-2024 Prolactin 14.22 ng/mL High 2.64-13.13 [facility] Comment on above: Result Comment: PERF ORMED BY: [place] [address] PATHOLOGIST DISHING MACHINE OPERATOR ÍVCTOR LUCERO M.D. Performed By: #### C BC, PT, PTT, CK, HS TROP, CMP, PRL #### [place] [id number] [facility] Protein Test strip (U) [Mass /Vol]Ordered By: Ragini Carmona on 11-17-2024 Protein (U) [Mass/Vol] Protein [Mass/volume] in Urine by Test strip High Negative [facility] Prothrombin Time INRon 11-17 INR Coag (PPP) [Relative time] 1.0 {INR} Normal [facility] Comment on above: Result Comment: [...] PTT, CK, HS TROP, CMP, PRL #### [facility] [address] PT Coag (PPP) [Time] 11.9 s Normal 9.0-12.9 [facility] Comment on above: Result Comment: A he matocrit value greater than 55% may lead to inaccurate results in coagulation testing. Patients having hematocrit values >55% require a special collection tube for coagulation studies. Please contact the laboratory at [phone] for redraw instructions. Performed By: #### C BC, PT, PTT, CK, HS TROP, CMP, PRL #### [facility] [address] Prothrombin time (PT)Ordered By: Ragini Carmona on 11-17-2024 PT Coag (PPP) [Time] Prothrombin time (PT) 9.0- 12.9 [facility] Comment on above: A hematocrit value g reater than 55% may lead to inaccurate results in coagulation testing. Patients having hematocrit values >55% require a special collection tube for coagulation studies. Please contact the laboratory at [phone] for redraw instructions. Specific gravity of Urine by RefractometryOrdered By: Ragini Carmona on 11-17-2024 Specific gravity Refractometry (U) [Rel density] Specific gravity of Urine by Refractometry High 1.001-1.030 [facility] Comment on above: Rechecked by refract ometer Troponin I High Sensitivityo n 11-17-2024 Troponin I High Sensitivity 36.7 pg/mL High 0.0-20.0 [facility] Comment on above: Result Comment: PERF ORMED BY: [place] [address] PATHOLOGIST DISHING MACHINE OPERATOR VÍCTOR LUCERO M.D. Performed By: #### C BC, PT, PTT, CK, HS TROP, CMP, PRL #### [address] Troponin I High Sensitivity 21.1 pg/mL High 0.0-20.0 [facility] Comment on above: Result Comment: PERF ORMED BY: [place] [address] PATHOLOGIST DISHING MACHINE OPERATOR VÍCTOR LUCERO M.D. Performed By: #### C BC, PT, PTT, CK, HS TROP, CMP, PRL #### [address] Urine Drug Screen w/Confirmo n 11-17-2024 Amphetamines GC/MS Confirm, Ur 527 ng/mL Normal Vwpvox=933 [facility] Comment on above: Performed By: #### C BC, PT, PTT, CK, HS TROP, CMP, PRL #### [address] Amphetamines, Ur See Final Results Normal Plyban=1754 [facility] Comment on above: Result Comment: Amph etamine test includes Amphetamine and Methamphetamine. Performed By: #### C BC, PT, PTT, CK, HS TROP, CMP, PRL #### [address] Amphetamines, Ur Positive Critically abnormal . [facility] Comment on above: Result Comment: Amph etamine test includes Amphetamine and Methamphetamine. Performed By: #### C BC, PT, PTT, CK, HS TROP, CMP, PRL #### [address] Barbiturate, Ur Negative Normal Yqsmsb=236 [facility] Comment on above: Performed By: #### C BC, PT, PTT, CK, HS TROP, CMP, PRL #### [address] Benzodiazepines, Ur See Final Results Normal Cutoff=30 0 [facility] Comment on above: Performed By: #### C BC, PT, PTT, CK, HS TROP, CMP, PRL #### [address] Benzodiazepines, Urine Negative Normal Vigvap=630 [facility] Comment on above: Performed By: #### C BC, PT, PTT, CK, HS TROP, CMP, PRL #### [facility] [address] Cannabinoid, Ur See Final Results Normal Cutoff=50 Th [facility] Comment on above: Performed By: #### C BC, PT, PTT, CK, HS TROP, CMP, PRL #### [address] Cannabinoid, Urine Negative Normal Cutoff=50 [facility] Comment on above: Result Comment: PERF ORMED BY: [place] [address] PATHOLOGIST DISHING MACHINE OPERATOR VÍCTOR LUCERO M.D. Performed By: #### C BC, PT, PTT, CK, HS TROP, CMP, PRL #### [address] Cocaine (Metab), Ur Negative Normal Izfzzn=544 [facility] Comment on above: Performed By: #### C BC, PT, PTT, CK, HS TROP, CMP, PRL #### [address] Methamphetamine Positive Critically abnormal . [facility] Comment on above: Performed By: #### C BC, PT, PTT, CK, HS TROP, CMP, PRL #### [address] Methamphetamines GC/MS, Ur >3000 Normal Maxmli=717 [facility] Comment on above: Performed By: #### C BC, PT, PTT, CK, HS TROP, CMP, PRL #### [address] Opaites, Ur Negative Normal Itollb=680 [facility] Comment on above: Result Comment: Opia te test includes Codeine and Morphine only. Performed By: #### C BC, PT, PTT, CK, HS TROP, CMP, PRL #### [place] [address] [place] Phencyclidine, Ur Negative Normal Cutoff=25 [facility] Comment on above: Result Comment: Perf ormed at: [facility] [address] [place], [place] [id number] Full Stack Web Developer: Adenike Panchal PhD, Phone: [phone] Performed By: #### C BC, PT, PTT, CK, HS TROP, CMP, PRL #### [address] Urine cocaine metabolite det ectionOrdered By: Chaz Frey on 11-17-2024 Benzoylecgonine Ql (U) Urine cocaine metabolite detection Qeeeok=076 [facility] Urobilinogen Test strip (U) [Mass/Vol]Ordered By: Ragini Carmona on 11-17-2024 Urobilinogen (U) [Mass/Vol] Urobilinogen [Mass/volume] in Urine by Test strip Normal [facility] Vitamin B12on 11-17-2024 Cobalamin (Vitamin B12) [Mass/Vol] 313 pg/mL Normal 180-914 [facility] Comment on above: Result Comment: PERF ORMED BY: [place] [address] PATHOLOGIST DISHING MACHINE OPERATOR VÍCTOR LUCERO M.D. Performed By: #### C BC, PT, PTT, CK, HS TROP, CMP, PRL #### [address] Vitamin B12 ser/plasOrdered By: Chaz Frey on 11-17-2024 Cobalamin (Vitamin B12) [Mass/Vol] Vitamin B12 ser/plas 180-914 [facility] X-ray reportOrdered By: Dung Chakraborty on 11-17-2024 Study report [facility] [address] [place] [address] XRay Report Signed Patient: Aaron Olivarez MR#: [id number] : 1960 Acct:[id number] Age/Sex: 64 / M ADM Date: 5 Loc: Room: [address] [place] [address] Type: ADM INOo Attending Dr: Chaz Frey [...] Dung Chakraborty M.D.11/17/2024 1:26 PM Dictation Location: [place] [address] Transcribed By: [facility] 11/17/24 1326 Dictated By: Dung Chakraborty II, MD 11/17/24 1326 Signed By: 11/17/24 1326 [facility] Work Phone: XR chest 1V portableon 11-17 XR chest 1V portable [facility] [place] [address] XRay Report Signed Patient: Aaron Olivarez MR#: [id number] 00 : 1960 Acct:[id number] Age/Sex: 64 / M ADM Date: 11/17/24 Loc: Room: [address] [place] [address] Type: ADM INOo Attending Dr: Chaz Frey [...] Dung Chakraborty M.D.11/17/2024 1:26 PM Dictation Location: [place] [address] Transcribed By: YNES 11/17/24 1323 Dictated By: Dung Chakraborty II, MD 11/17/241325 Signed By: 11/17/24 1326 Normal [facility] aPTT in Platelet poor plasma by Coagulation assayOrdered By: Ragini Carmona on 11-17-2024 aPTT Coag (PPP) [Time] Activated partial thromboplastin time (aPTT) in platelet poor plasma by coagulation a Low 25.1-36.5 [facility] Comment on above: A hematocrit value g reater than 55% may lead to inaccurate results in coagulation testing. Patients having hematocrit values >55% require a special collection tube for coagulation studies. Please contact the laboratory at [phone] for redraw instructions. pH Test strip (U)Ordered By: Ragini Carmona on 11-17-2024 pH (U) pH of Urine by Test strip 5.0-9.0 [facility] CBC with Diffon 07-15-2024 Abs. Basophil 0.04 k/uL Normal 0.00-0.20 [facility] Comment on above: Performed By: #### C DP, CMPX, MG #### [facility] [employer] [address] [place] [address] Full Stack Web Developer: Dario Almanza MD Abs.Imm.Granulocyte <0.03 Normal 0.00-0.30 [facility] Comment on above: Performed By: #### C DP, CMPX, MG #### [facility] [employer] [address] [place] [address] Full Stack Web Developer: Dario Almanza MD Abs.Neutrophil (Seg) 3.52 k/uL Normal 1.50-8.10 [facility] Comment on above: Performed By: #### C DP, CMPX, MG #### [facility] [employer] [address] [place] [id number] Full Stack Web Developer: Dario Almanza MD Basophils/100 WBC (Bld) 1 % Normal 0-2 [facility] Comment on above: Performed By: #### C DP, CMPX, MG #### [facility] [employer] [address] [place] [address] Full Stack Web Developer: Dario Almanza MD Eosinophils (Bld) [#/Vol] 0.03 10*3/uL Normal 0.00-0.44 [facility] Comment on above: Performed By: #### C DP, CMPX, MG #### [facility] [employer] [address] [place] [address] Full Stack Web Developer: Dario Almanza MD Eosinophils/100 WBC (Bld) 1 % Normal 1-4 [facility] Comment on above: Performed By: #### C DP, CMPX, MG #### [facility] [employer] [address] [place] [address] Full Stack Web Developer: Dario Almanza MD Erythrocyte distribution width (RBC) [Ratio] 13.1 % Normal 11.8-14.4 [facility] Comment on above: Performed By: #### C DP, CMPX, MG #### [facility] [address] [place] [address] Full Stack Web Developer: Dario Almanza MD Hematocrit (Bld) [Volume fraction] 42.4 % Normal 40.7-50.3 [facility] Comment on above: Performed By: #### C DP, CMPX, MG #### [facility] [address] [place] [address] Full Stack Web Developer: Dario Almanza MD Hemoglobin (Bld) [Mass/Vol] 13.7 g/dL Normal 13.0-17.0 [facility] Comment on above: Performed By: #### C DP, CMPX, MG #### [facility] [address] [place] [address] Full Stack Web Developer: Dairo Almanza MD Immature granulocytes/100 WBC (Bld) 0 % Normal 0 [facility] Comment on above: Performed By: #### C DP, CMPX, MG #### [facility] [employer] [address] [place] [address] Full Stack Web Developer: Dario Almanza MD Lymphocytes (Bld) [#/Vol] 1.19 10*3/uL Normal 1.10-3.70 [facility] Comment on above: Performed By: #### C DP, CMPX, MG #### [facility] [employer] [address] [place] [address] Full Stack Web Developer: Dario Almanza MD Lymphocytes/100 WBC (Bld) 22 % Low 24-43 [facility] Comment on above: Performed By: #### C DP, CMPX, MG #### [facility] [employer] [address] [place] [address] Full Stack Web Developer: Dario Almnaza MD MCH (RBC) [Entitic mass] 29.6 pg Normal 25.2-33.5 [facility] Comment on above: Performed By: #### C DP, CMPX, MG #### [facility] [employer] [address] [place] [address] Full Stack Web Developer: Dario Almanza MD MCHC (RBC) [Mass/Vol] 32.3 g/dL Normal 28.4-34.8 [facility] Comment on above: Performed By: #### C DP, CMPX, MG #### [facility] [employer] [address] [place] [address] Full Stack Web Developer: Dario Almanza MD MCV (RBC) [Entitic vol] 91.6 fL Normal 82.6-102.9 [facility] Comment on above: Performed By: #### C DP, CMPX, MG #### [facility] [employer] [address] [place] [address] Full Stack Web Developer: Dario lAmanza MD Monocytes (Bld) [#/Vol] 0.61 10*3/uL Normal 0.10-1.20 [facility] Comment on above: Performed By: #### C DP, CMPX, MG #### [address] [address] Full Stack Web Developer: Dario Almanza MD Monocytes/100 WBC (Bld) 11 % Normal 3-12 [facility] Comment on above: Performed By: #### C DP, CMPX, MG #### [address] [address] Full Stack Web Developer: Dario Almanza MD Neutrophil (Seg) 65 % Normal 36-65 [facility] Comment on above: Performed By: #### C DP, CMPX, MG #### [address] [address] Full Stack Web Developer: Dario Almanza MD NRBC Automated 0.0 per 100 WBC Normal 0.0 [facility] Comment on above: Performed By: #### C DP, CMPX, MG #### [address] [address] Full Stack Web Developer: Dario Almanza MD Platelet mean volume (Bld) [Entitic vol] 9.2 fL Normal 8.1-13.5 [facility] Comment on above: Performed By: #### C DP, CMPX, MG #### [address] [address] Full Stack Web Developer: Dario Almanza MD Platelets (Bld) [#/Vol] 227 10*3/uL Normal 138-453 [facility] Comment on above: Performed By: #### C DP, CMPX, MG #### [facility] [employer] [address] [place] [address] Full Stack Web Developer: Dario Almanza MD RBC (Bld) [#/Vol] 4.63 10*6/uL Normal 4.21-5.77 [facility] Comment on above: Performed By: #### C DP, CMPX, MG #### [address] [address] Full Stack Web Developer: Dario Almanza MD WBC (Bld) [#/Vol] 5.4 10*3/uL Normal 3.5-11.3 [facility] Comment on above: Performed By: #### C DP, CMPX, MG #### [address] [address] Full Stack Web Developer: Dario Almanza MD Comp Metabolic Pr/rfx MGon 0 07-15-2024 Albumin [Mass/Vol] 3.8 g/dL Normal 3.5-5.2 [facility] Comment on above: Performed By: #### C DP, CMPX, MG #### [address] [address] Full Stack Web Developer: Dario Almanza MD Albumin/Glob Ratio 2.0 Normal 1.0-2.5 [facility] Comment on above: Performed By: #### C DP, CMPX, MG #### [address] [address] Full Stack Web Developer: Dario Almanza MD Alkaline Phos 104 U/L Normal 40-129 [facility] Comment on above: Performed By: #### C DP, CMPX, MG #### [facility] [employer] [address] [place] [address] Full Stack Web Developer: Dario Almanza MD ALT [Catalytic activity/Vol] 7 U/L Low 10-50 [facility] Comment on above: Performed By: #### C DP, CMPX, MG #### [facility] [employer] [address] [place] [address] Full Stack Web Developer: Dario Almanza MD Anion gap [Moles/Vol] 7 mmol/L Low 9-16 [facility] Comment on above: Performed By: #### C DP, CMPX, MG #### [facility] [employer] [address] [place] [address] Full Stack Web Developer: Dario Almanza MD AST [Catalytic activity/Vol] 20 U/L Normal 10-50 [facility] Comment on above: Performed By: #### C DP, CMPX, MG #### [facility] [employer] [address] [place] [address] Full Stack Web Developer: Dario Almanza MD Bilirubin [Mass/Vol] 0.6 mg/dL Normal 0.00-1.20 [facility] Comment on above: Performed By: #### C DP, CMPX, MG #### [facility] [employer] [address] [place] [address] Full Stack Web Developer: Dario Almanza MD Calcium [Mass/Vol] 9.3 mg/dL Normal 8.6-10.4 [facility] Comment on above: Performed By: #### C DP, CMPX, MG #### [address] [address] Full Stack Web Developer: Dario Almanza MD Chloride [Moles/Vol] 103 mmol/L Normal 98-107 [facility] Comment on above: Performed By: #### C DP, CMPX, MG #### [facility] [employer] [address] [place] [address] Full Stack Web Developer: Dario Almanza MD CO2 [Moles/Vol] 28 mmol/L Normal 20-31 [facility] Comment on above: Performed By: #### C DP, CMPX, MG #### [facility] [employer] [address] [place] [address] Full Stack Web Developer: Dario Almanza MD Creatinine [Mass/Vol] 0.9 mg/dL Normal 0.70-1.20 [facility] Comment on above: Performed By: #### C DP, CMPX, MG #### [employer] [address] [place] [address] Full Stack Web Developer: Dario Almanza MD GFR/1.73 sq M.predicted among non-blacks MDRD (S/P/Bld) [Vol rate/Area] mL/min/{1.73_m2} Normal >60 [facility] Comment on above: Result Comment: These [...] By: #### C DP, CMPX, MG #### [facility] [employer] [address] [place] [address] Full Stack Web Developer: Dario Almanza MD Glucose [Mass/Vol] 95 mg/dL Normal 74-99 [facility] Comment on above: Performed By: #### C DP, CMPX, MG #### [facility] [address] [place] [address] Full Stack Web Developer: Dario Almanza MD Potassium [Moles/Vol] 3.4 mmol/L Low 3.7-5.3 [facility] Comment on above: Performed By: #### C DP, CMPX, MG #### [facility] [address] [place] [address] Full Stack Web Developer: Dario Almanza MD Protein [Mass/Vol] 5.8 g/dL Low 6.6-8.7 [facility] Comment on above: Performed By: #### C DP, CMPX, MG #### [facility] [address] [place] [address] Full Stack Web Developer: Dario Almanza MD Sodium [Moles/Vol] 138 mmol/L Normal 136-145 [facility] Comment on above: Performed By: #### C DP, CMPX, MG #### [facility] [address] [place] [address] Full Stack Web Developer: Dario Almanza MD Urea nitrogen [Mass/Vol] 15 mg/dL Normal - [facility] Comment on above: Performed By: #### C DP, CMPX, MG #### [facility] [address] [place], [place] [id number] Full Stack Web Developer: Dario Almanza MD Magnesiumon 07-15-2024 Magnesium [Mass/Vol] 2.0 mg/dL Normal 1.6-2.4 [facility] Comment on above: Performed By: #### C DP, CMPX, MG #### [facility] [address] [place] [address] Full Stack Web Developer: Dario Almanza MD BUN, POCon 07-14-2024 Urea nitrogen [Mass/Vol] 18 mg/dL Normal 07-[address] [facility] [address] BRAIN PERFUSIONon 024 CT BRAIN [...] Montilla MD 07/14/24 Final result Normal [facility] CTA HEAD NECK W CONTRASTon [...] reasonably achievable. This scan was analyzed using [employer] contact LVO. Identification of suspected findings is [...] Edgar Montilla MD 07/14/24 Final result Normal [facility] Calcium, Ionic (POC)on 07-14 Calcium [Moles/Vol] 1.11 mmol/L Low 1.15-1.33 [facility] Creatinine w/GFR, POCon Creatinine [Mass/Vol] 1.0 mg/dL Normal 0.51-1.19 [facility] GFR/1.73 sq M.predicted among non-blacks MDRD (S/P/Bld) [Vol rate/Area] 84 mL/min/{1.73_m2} Normal >60 [facility] Comment on above: Result Comment: These [...] Abuse, Uron 2023 Amphetamine(s),Ur Positive Abnormal NEG [facility] Comment on above: Result Comment: Cuto ff: 1000 ng/mL Performed By: #### U AMIC, MARIA D #### [facility] [address] [place] [address] Full Stack Web Developer: Dario Almanza MD Benzodiazepine(s) Positive Abnormal NEG [facility] Comment on above: Result Comment: Cuto ff: 200 ng/ml Performed By: #### U AMIC, MARIA D #### [facility] [address] [place] [address] Full Stack Web Developer: Dario Almanza MD Cannabinoid(s),Ur Positive Abnormal NEG [facility] Comment on above: Result Comment: Cuto ff: 50 ng/ml Performed By: #### U AMIC, MARIA D #### [facility] [address] [place] [address] Full Stack Web Developer: Dario Almanza MD Interpretive Info Assay provides rapid clinical screening only. Presumptive positive results for Normal [facility] Comment on above: Result Comment: lega l purposes should be confirmed by another method. To request confirmation, please call the lab within 7 days of sample submission. Performed By: #### U AMIC, MARIA D #### [facility] [address] [place] [address] Full Stack Web Developer: Dario Almanza MD Barbiturate(s),Ur Negative Normal NEG [facility] Comment on above: Result Comment: Cuto ff: 200 ng/ml Performed By: #### U AMIC, MARIA D #### [facility] [address] [place] [address] Full Stack Web Developer: Dario Almanza MD Cocaine Metabolite Negative Normal NEG [facility] Comment on above: Result Comment: Cuto ff: 300 ng/ml Performed By: #### U AMIC, MARIA D #### [employer] [address] [place] [address] Full Stack Web Developer: Dario Almanza MD Fentanyl, Urine Negative Normal NEG [facility] Comment on above: Result Comment: Cuto ff: 5 ng/ml Performed By: #### U AMIC, MARIA D #### [address] [address] Full Stack Web Developer: Dario Almanza MD Methadone Ql (U) Negative Normal NEG [facility] Comment on above: Result Comment: Cuto ff: 300 ng/ml Performed By: #### U AMIC, MARIA D #### [address] [address] Full Stack Web Developer: Dario Almanza MD Opiate(s), Ur Negative Normal NEG [facility] Comment on above: Result Comment: Cuto ff: 300 ng/ml Performed By: #### U AMIC, MARIA D #### [address] [address] Full Stack Web Developer: Dario Almanza MD Oxycodone, Urine Negative Normal NEG [facility] Comment on above: Result Comment: Cuto ff: 100 ng/ml Performed By: #### U AMIC, MARIA D #### [facility] [employer] [address] [place] [address] Full Stack Web Developer: Dario Almanza MD Phencyclidine, Ur Negative Normal NEG [facility] Comment on above: Result Comment: Cuto ff: 25 ng/ml Performed By: #### U AMIC, MARIA D #### [address] [address] Full Stack Web Developer: Dario Almanza MD Electrolyteson 07-14-2024 Anion gap [Moles/Vol] 9 mmol/L Normal 7-16 [facility] Chloride [Moles/Vol] 101 mmol/L Normal 98-107 [facility] CO2 [Moles/Vol] 32 mmol/L High 22-30 [facility] Potassium [Moles/Vol] 4.0 mmol/L Normal 3.5-4.5 [facility] Sodium [Moles/Vol] 141 mmol/L Normal 138-146 [facility] Glucose (POC)on 07-14-2024 Glucose [Mass/Vol] 172 mg/dL High 74-100 [facility] Hgb/Hct, POCon 07-14-2024 Hematocrit (Bld) [Volume fraction] 43 % Normal 41-53 [facility] Hemoglobin (Bld) [Mass/Vol] 14.8 g/dL Normal 13.5-17.5 [facility] Lactic Acidon 07-14-2024 Lactic Acid,Whole Bl 1.7 mmol/L Normal 0.7-2.1 [facility] Comment on above: Performed By: #### E DTOX, LACTIC #### [facility] [employer] [address] [place] [address] Full Stack Web Developer: Dario Almanza MD Lactic Acid (POC)on 07-14-20 24 Lactate [Moles/Vol] 2.8 mmol/L High 0.56-1.39 [facility] MRI BRAIN W WO CONTRASTon MRI [...] collection present. The proximal portions of [place] demonstrate normal flow voids. ORBITS: [...] Edgar Montilla MD 07/14/24 Final result Normal [facility] Stroke Panelon 07-14-2024 Abs. Basophil 0.06 k/uL Normal 0.00-0.20 [facility] Comment on above: Performed By: #### Milan VILLANUEVA #### [place] [address] Full Stack Web Developer: Dario Almanza MD Abs.Imm.Granulocyte 0.00 k/uL Normal 0.00-0.30 [facility] Comment on above: Performed By: #### Milan VILLANUEVA #### [place] [address] Full Stack Web Developer: Dario Almazna MD Abs.Neutrophil (Seg) 5.40 k/uL Normal 1.50-8.10 [facility] Comment on above: Performed By: #### Milan VILLANUEVA #### [facility] [employer] [address] [place] [address] Full Stack Web Developer: Dario Almanza MD Basophils/100 WBC (Bld) 1 % Normal 0-2 [facility] Comment on above: Performed By: #### Milan VILLANUEVA #### [place] [address] Full Stack Web Developer: Dario Almanza MD Eosinophils (Bld) [#/Vol] 0.00 10*3/uL Normal 0.00-0.44 [facility] Comment on above: Performed By: #### S KAY #### [address] [address] Full Stack Web Developer: Dario Almanza MD Eosinophils/100 WBC (Bld) 0 % Low 1-4 [facility] Comment on above: Performed By: #### S TROKE #### [address] [address] Full Stack Web Developer: Dario Almanza MD Immature granulocytes/100 WBC (Bld) 0 % Normal 0 [facility] Comment on above: Performed By: #### S TROKE #### [address] [address] Full Stack Web Developer: Dario Almanza MD Lymphocytes (Bld) [#/Vol] 0.43 10*3/uL Low 1.10-3.70 [facility] Comment on above: Performed By: #### S TROKE #### [address] [address] Full Stack Web Developer: Dario lAmanza MD Lymphocytes/100 WBC (Bld) 7 % Low 24-43 [facility] Comment on above: Performed By: #### S TROKE #### [address] [address] Full Stack Web Developer: Dario Almanza MD Monocytes (Bld) [#/Vol] 0.31 10*3/uL Normal 0.10-1.20 [facility] Comment on above: Performed By: #### S TROKE #### [address] [address] Full Stack Web Developer: Dario Almanza MD Monocytes/100 WBC (Bld) 5 % Normal 3-12 [facility] Comment on above: Performed By: #### S TROKE #### [address] [address] Full Stack Web Developer: Dario Almanza MD Morphology David (Bld) [Interp] Normal Normal [facility] Comment on above: Performed By: #### S TROKE #### [address] [address] Full Stack Web Developer: Dario Almanza MD Neutrophil (Seg) 87 % High 36-65 [facility] Comment on above: Performed By: #### S TROKE #### [address] [address] Full Stack Web Developer: Dario Almanza MD Anion gap [Moles/Vol] 8 mmol/L Low 9-16 [facility] Comment on above: Performed By: #### S TROKE #### [address] [address] Full Stack Web Developer: Dario Almanza MD Calcium [Mass/Vol] 8.5 mg/dL Low 8.6-10.4 [facility] Comment on above: Performed By: #### S TROKE #### [address] [address] Full Stack Web Developer: Dario Almanza MD Chloride [Moles/Vol] 102 mmol/L Normal 98-107 [facility] Comment on above: Performed By: #### S TROKE #### [address] [address] Full Stack Web Developer: Dario Almanza MD CK [Catalytic activity/Vol] 101 U/L Normal 39-308 [facility] Comment on above: Performed By: #### S TROKE #### [address] [address] Full Stack Web Developer: Dario Almanza MD CO2 [Moles/Vol] 27 mmol/L Normal 20-31 [facility] Comment on above: Performed By: #### S TROKE #### [address] [address] Full Stack Web Developer: Dario Almanza MD Creatinine [Mass/Vol] 1.1 mg/dL Normal 0.70-1.20 [facility] Comment on above: Performed By: #### S KAY #### [address] [address] Full Stack Web Developer: Dario Almanza MD GFR/1.73 sq M.predicted among non-blacks MDRD (S/P/Bld) [Vol rate/Area] 74 mL/min/{1.73_m2} Normal >60 [facility] Comment on above: Result Comment: These [...] secretion. Performed By: #### S KAY #### [facility] [employer] [address] [place] [address] Full Stack Web Developer: Dario Almanza MD Glucose [Mass/Vol] 174 mg/dL High 74-99 [facility] Comment on above: Performed By: #### S KAY #### [facility] [employer] [address] [place] [address] Full Stack Web Developer: Dario Almanza MD Myoglobin [Mass/Vol] 106 ng/mL High 28-72 [facility] Comment on above: Performed By: #### S KAY #### [facility] [address] [place] [address] Full Stack Web Developer: Dario Almanza MD Potassium [Moles/Vol] 4.0 mmol/L Normal 3.7-5.3 [facility] Comment on above: Result Comment: SPEC IMEN SLIGHTLY HEMOLYZED, RESULTS MAY BE ADVERSELY AFFECTED. Performed By: #### S KAY #### [facility] [employer] [address] [place] [address] Full Stack Web Developer: Dario Almanza MD Sodium [Moles/Vol] 137 mmol/L Normal 136-145 [facility] Comment on above: Performed By: #### S KAY #### [address] [address] Full Stack Web Developer: Dario Almanza MD Troponin, High Sens 24 ng/L High 0-22 [facility] Comment on above: Result Comment: High Sensitivity Troponin values cannot be compared with other Troponin methodologies. Performed By: #### S KAY #### [address] [address] Full Stack Web Developer: Dario Almanza MD Urea nitrogen [Mass/Vol] 16 mg/dL Normal 8-23 [facility] Comment on above: Performed By: #### S KAY #### [address] [address] Full Stack Web Developer: Dario Almanza MD aPTT Coag (Bld) [Time] 22.1 s Low 23.0-36.5 [facility] Comment on above: Result Comment: IV Heparin Therapy Range: 66.0-92.0 sec Performed By: #### S KAY #### [address] [address] Full Stack Web Developer: Dario Almanza MD INR Coag (PPP) [Relative time] 1.1 {INR} Normal [facility] Comment on above: Result Comment: Therapeutic Range: Moderate Anticoagulant Intensity: INR = 2.0-3.0 High Anticoagulant Intensity: INR = 2.5-3.5 Performed By: #### S KAY #### [address] [address] Full Stack Web Developer: Dario Almanza MD PT Coag (PPP) [Time] 13.6 s Normal 11.7-14.9 [facility] Comment on above: Performed By: #### S KAY #### [facility] [employer] [address] [place] [address] Full Stack Web Developer: Dario Almanza MD Erythrocyte distribution width (RBC) [Ratio] 13.2 % Normal 11.8-14.4 [facility] Comment on above: Performed By: #### S TROKE #### [address] [address] Full Stack Web Developer: Dario Almanza MD Hematocrit (Bld) [Volume fraction] 42.4 % Normal 40.7-50.3 [facility] Comment on above: Performed By: #### S TROKE #### [address] [address] Full Stack Web Developer: Dario Almanza MD Hemoglobin (Bld) [Mass/Vol] 13.9 g/dL Normal 13.0-17.0 [facility] Comment on above: Performed By: #### S TROKE #### [address] [address] Full Stack Web Developer: Dario Almanza MD MCH (RBC) [Entitic mass] 29.6 pg Normal 25.2-33.5 [facility] Comment on above: Performed By: #### S TROKE #### [address] [address] Full Stack Web Developer: Dario Almanza MD MCHC (RBC) [Mass/Vol] 32.8 g/dL Normal 28.4-34.8 [facility] Comment on above: Performed By: #### S TROKE #### [address] [address] Full Stack Web Developer: Dario Almanza MD MCV (RBC) [Entitic vol] 90.2 fL Normal 82.6-102.9 [facility] Comment on above: Performed By: #### S TROKE #### [address] [address] Full Stack Web Developer: Dario Almanza MD NRBC Automated 0.0 per 100 WBC Normal 0.0 [facility] Comment on above: Performed By: #### S TITUSKE #### [address] [address] Full Stack Web Developer: Dario Almanza MD Platelet mean volume (Bld) [Entitic vol] 9.3 fL Normal 8.1-13.5 [facility] Comment on above: Performed By: #### S TITUSKE #### [address] [address] Full Stack Web Developer: Dario Almanza MD Platelets (Bld) [#/Vol] 267 10*3/uL Normal 138-453 [facility] Comment on above: Performed By: #### S KAY #### [address] [address] Full Stack Web Developer: Dario Almanza MD RBC (Bld) [#/Vol] 4.70 10*6/uL Normal 4.21-5.77 [facility] Comment on above: Performed By: #### S TITUSKE #### [address] [address] Full Stack Web Developer: Dario Almanza MD WBC (Bld) [#/Vol] 6.2 10*3/uL Normal 3.5-11.3 [facility] Comment on above: Performed By: #### S TITUSKE #### [address] [address] Full Stack Web Developer: Dario Almanza MD TSH w/reflex to FT4on 2023 Thyroid Stim. Horm. 1.44 uIU/mL Normal 0.27-4.20 [facility] Comment on above: Performed By: #### T SHX ####[address] [phone] Director: Dario Almanza MD Tox Scr, Bld, EDon 4 Acetaminophen [Mass/Vol] ug/mL Low 10-30 [facility] Comment on above: Performed By: #### E DTOX, LACTIC #### [address] [address] Full Stack Web Developer: Dario Almanza MD Ethanol [Mass/Vol] mg/dL Normal <10 [facility] Comment on above: Performed By: #### E DTOX, LACTIC #### [address] [address] Full Stack Web Developer: Dario Almanza MD Ethanol percent <0.010 Normal <0.010 [facility] Comment on above: Performed By: #### E DTOX, LACTIC #### [address] [address] Full Stack Web Developer: Dario Almanza MD Salicylate <0.5 Normal 0.0-10.0 [facility] Comment on above: Performed By: #### E DTOX, LACTIC #### [address] [address] Full Stack Web Developer: Dario Almanza MD Urinalysis w/ Microon 3 Bacteria None Normal NONE [facility] Comment on above: Performed By: #### U AMIC, MARIA D #### [address] [address] Full Stack Web Developer: Dario Almanza MD Bilirubin, SemiQt,Ur Negative Normal NEG [facility] Comment on above: Performed By: #### U AMIC, MARIA D #### [address] [address] Full Stack Web Developer: Dario Almanza MD Blood, Urine Negative Normal NEG [facility] Comment on above: Performed By: #### U AMIC, MARIA D #### [facility] [employer] [address] [place] [address] Full Stack Web Developer: Dario Almanza MD Casts 5 TO 10 HYALINE Normal 0-8 [facility] Comment on above: Result Comment: Refe rence range defined for non-centrifuged specimen. Performed By: #### U AMIC, MARIA D #### [facility] [employer] [address] [place] [address] Full Stack Web Developer: Dario Almanza MD Clarity (U) Clear Normal CLEAR [facility] Comment on above: Performed By: #### U AMIC, MARIA D #### [facility] [employer] [address] [place] [address] Full Stack Web Developer: Dario Almanza MD Color (U) Yellow Normal YEL [facility] Comment on above: Performed By: #### U AMIC, MARIA D #### [address] [address] Full Stack Web Developer: Dario Almanza MD Epithelial cells LM Ql (Urine sed) 0 TO 2 Normal 0-5 [facility] Comment on above: Performed By: #### U AMIC, MARIA D #### [facility] [employer] [address] [place] [address] Full Stack Web Developer: Dario Almanza MD Glucose Ql (U) 1+ mg/dL Abnormal NEG [facility] Comment on above: Performed By: #### U AMIC, MARIA D #### [facility] [address] [place] [address] Full Stack Web Developer: Dario Almanza MD Ketones Ql (U) Negative Normal NEG [facility] Comment on above: Performed By: #### U AMIC, MARIA D #### [facility] [address] [place] [address] Full Stack Web Developer: Dario Almanza MD Leukocyte esterase Test strip Ql (U) Negative Normal NEG [facility] Comment on above: Performed By: #### U AMIC, MARIA D #### [address] [address] Full Stack Web Developer: Dario Almanza MD Nitrite,Ur Negative Normal NEG [facility] Comment on above: Performed By: #### U AMIC, MARIA D #### [address] [address] Full Stack Web Developer: Dario Almanza MD PH,Ur 7.0 Normal 5.0-8.0 [facility] Comment on above: Performed By: #### U AMIC, MARIA D #### [address] [address] Full Stack Web Developer: Dario Almanza MD Protein Ql (U) 1+ mg/dL Abnormal NEG [facility] Comment on above: Performed By: #### U AMIC, MARIA D #### [address] [address] Full Stack Web Developer: Dario Almanza MD Spec. [place],Ur 1.044 High 1.005-1.030 [facility] Comment on above: Performed By: #### U AMIC, MARIA D #### [address] [address] [address] Full Stack Web Developer: Dario Almanza MD Urine RBC's 0 TO 2 Normal 0-4 [facility] Comment on above: Result Comment: Refe rence range defined for non-centrifuged specimen. Performed By: #### U AMIC, MARIA D #### [address] [address] Full Stack Web Developer: Dario Almanza MD Urine WBC's None Normal 0-5 [facility] Comment on above: Performed By: #### U AMIC, MARIA D #### [address] [address] Full Stack Web Developer: Dario Almanza MD Urobilinogen,Ur Normal Normal 0.0-1.0 [facility] Comment on above: Performed By: #### U AMI, MARIA D #### [facility] [place] [id number] Full Stack Web Developer: Dario Almanza MD Venous Bld Gas,POCon 024 HCO3 (Bld) [Moles/Vol] 31.9 mmol/L High 22.0-29.0 [facility] Oxygen saturation in Blood 45.4 % Low 60.0-85.0 [facility] pCO2, Venous 47.5 mm Hg Normal 41.0-51.0 [facility] pH,Venous 7.435 High 7.320-7.430 [facility] pO2, Venous 24.6 mm Hg Low 30.0-50.0 [facility] Positive Base Excess (calc) 6.4 mmol/L High 0.0-3.0 [facility] XR ABDOMEN (KUB) (SINGLE AP VIEW)on [...] Jt Gray MD 07/14/24 Final result Normal [facility] XR CHEST PORTABLEon 07-14-20 XR CHEST [...] Basil Witt DO 07/14/24 Final result Normal [facility] Basic Metabolic Panelon 04-14 Creatinine Clr Calc Pharmacy 82.90 Normal [facility] Comment on above: Result Comment: PERF ORMED BY: [place] [address] PATHOLOGIST DISHING MACHINE OPERATOR ULISES MILLS M.D. Performed By: #### C BC, PT, PTT, CK, HS TROP, CMP, PRL #### [address] GFR/1.73 sq M.predicted MDRD (S/P/Bld) [Vol rate/Area] mL/min/{1.73_m2} Normal [facility] Comment on above: Performed By: #### C BC, PT, PTT, CK, HS TROP, CMP, PRL #### [place] [address] [place] Calcium [Mass/volume] in Ser um or PlasmaOrdered By: Janae Jose on 05-05-2024 Calcium [Mass/Vol] 9.0 mg/dL Normal 8.6-10.3 [facility] Comment on above: Performed By: #### C BC, PT, PTT, CK, HS TROP, CMP, PRL #### [place] [id number] [place] Carbon dioxide, total [Moles /volume] in Serum or PlasmaOrdered By: Janae Jose on 05-05-2024 CO2 [Moles/Vol] 30.3 mmol/L Normal 21.0-31.0 [facility] Comment on above: Performed By: #### C BC, PT, PTT, CK, HS TROP, CMP, PRL #### [place] [address] [place] Chloride [Moles/volume] in S andrei or PlasmaOrdered By: Janae Jose on 05-05-2024 Chloride [Moles/Vol] 98 mmol/L Normal 98-107 [facility] Comment on above: Performed By: #### C BC, PT, PTT, CK, HS TROP, CMP, PRL #### [facility] [address] Creatinine [Mass/volume] in Serum or PlasmaOrdered By: Janae Jose on 05-05-2024 Creatinine [Mass/Vol] 0.97 mg/dL Normal 0.70-1.30 [facility] Comment on above: Performed By: #### C BC, PT, PTT, CK, HS TROP, CMP, PRL #### [facility] [address] Glucose [Mass/volume] in Ser um or PlasmaOrdered By: Janae Jose on 05-05-2024 Glucose [Mass/Vol] 105 mg/dL High 70-100 [facility] Comment on above: ADA recommended refe rence rangeRandom Glucose Reference Range is dependent on time and content of last meal. Glucose of more than 200 mg/dL in a nonstressed, ambulatory subject supports the diagnosis of Diabetes Mellitus. Result Comment: [place] Glucose Reference Range is dependent on time and content of last meal. Glucose of more than 200 mg/dL in a nonstressed, ambulatory subject supports the diagnosis of Diabetes Mellitus. ADA recommended reference range Performed By: #### C BC, PT, PTT, CK, HS TROP, CMP, PRL #### [facility] [address] No Panel InformationOrdered By: Janae Jose on 05-05-2024 Estimated GFR (CKD-EPI) > 60.0 mL/Min [facility] Creatinine Clearance (Chem 82.90 [facility] Potassium [Moles/volume] in Serum or PlasmaOrdered By: Janae Jose on 05-05-2024 Potassium [Moles/Vol] 4.4 mmol/L Normal 3.5-5.1 [facility] Comment on above: Performed By: #### C BC, PT, PTT, CK, HS TROP, CMP, PRL #### [facility] [address] Serum or plasma anion gap de terminationOrdered By: Janae Jose on 05-05-2024 Anion gap [Moles/Vol] 8.1 mmol/L Normal 6.0-15.0 [facility] Comment on above: Performed By: #### C BC, PT, PTT, CK, HS TROP, CMP, PRL #### [address] Sodium [Moles/volume] in Ser um or PlasmaOrdered By: Janae Jose on 05-05-2024 Sodium [Moles/Vol] 132 mmol/L Low 136-145 [facility] Comment on above: Performed By: #### C BC, PT, PTT, CK, HS TROP, CMP, PRL #### [address] Urea nitrogen [Mass/volume] in Serum or PlasmaOrdered By: Janae Jose on 05-05-2024 Urea nitrogen [Mass/Vol] 25 mg/dL Normal 7-25 [facility] Comment on above: Performed By: #### C BC, PT, PTT, CK, HS TROP, CMP, PRL #### [address] Ammonia [Moles/volume] in Pl asmaOrdered By: Víctor Agrawal on 05-04-2024 Ammonia (P) [Moles/Vol] 22 umol/L Normal 11-35 [facility] Comment on above: Result Comment: PERF ORMED BY: [place] [address] PATHOLOGIST DISHING MACHINE OPERATOR ULISES MILLS M.D. Performed By: #### C BC, PT, PTT, CK, HS TROP, CMP, PRL #### [address] Automated basophil %Ordered By: Magdy Douglass on 05-04-2024 Basophils/100 WBC (Bld) 0.1 % Normal . [facility] Comment on above: Performed By: #### C BC, PT, PTT, CK, HS TROP, CMP, PRL #### [address] Automated basophil countOrde red By: Magdy Douglass on 05-04-2024 Basophils (Bld) [#/Vol] 0.0 10*3/uL Normal 0.0-0.2 [facility] Comment on above: Result Comment: PERF ORMED BY: [place] [address] PATHOLOGIST DISHING MACHINE OPERATOR ULISES MILLS M.D. Performed By: #### C BC, PT, PTT, CK, HS TROP, CMP, PRL #### [address] Automated blood monocyte cou ntOrdered By: Magdy Douglass on 05-04-2024 Monocytes (Bld) [#/Vol] 0.3 10*3/uL Normal 0.0-0.8 [facility] Comment on above: Performed By: #### C BC, PT, PTT, CK, HS TROP, CMP, PRL #### [address] Automated eosinophil %Ordere d By: Magdy Douglass on 05-04-2024 Eosinophils/100 WBC (Bld) 0.0 % Normal . [facility] Comment on above: Performed By: #### C BC, PT, PTT, CK, HS TROP, CMP, PRL #### [address] Automated eosinophil countOr dered By: Magdy Douglass on 05-04-2024 Eosinophils (Bld) [#/Vol] 0.0 10*3/uL Normal 0.0-0.45 [facility] Comment on above: Performed By: #### C BC, PT, PTT, CK, HS TROP, CMP, PRL #### [address] Automated monocyte %Ordered By: Magdy Douglass on 05-04-2024 Monocytes/100 WBC (Bld) 3.0 % Normal . [facility] Comment on above: Performed By: #### C BC, PT, PTT, CK, HS TROP, CMP, PRL #### [facility] [address] Automated neutrophil %Ordere d By: Magdy Douglass on 05-04-2024 Neutrophils/100 WBC (Bld) 92.0 % Normal . [facility] Comment on above: Performed By: #### C BC, PT, PTT, CK, HS TROP, CMP, PRL #### [facility] [address] Basic Metabolic Panelon 04-14 Anion gap [Moles/Vol] 11.4 mmol/L Normal 6.0-15.0 [facility] Comment on above: Performed By: #### C BC, PT, PTT, CK, HS TROP, CMP, PRL #### [facility] [address] Calcium [Mass/Vol] 9.6 mg/dL Normal 8.6-10.3 [facility] Comment on above: Performed By: #### C BC, PT, PTT, CK, HS TROP, CMP, PRL #### [facility] [address] Chloride [Moles/Vol] 93 mmol/L Low 98-107 [facility] Comment on above: Performed By: #### C BC, PT, PTT, CK, HS TROP, CMP, PRL #### [facility] [address] CO2 [Moles/Vol] 30.9 mmol/L Normal 21.0-31.0 [facility] Comment on above: Performed By: #### C BC, PT, PTT, CK, HS TROP, CMP, PRL #### [facility] [address] Creatinine [Mass/Vol] 0.88 mg/dL Normal 0.70-1.30 [facility] Comment on above: Performed By: #### C BC, PT, PTT, CK, HS TROP, CMP, PRL #### [address] Creatinine Clr Calc Pharmacy 91.86 Normal [facility] Comment on above: Performed By: #### C BC, PT, PTT, CK, HS TROP, CMP, PRL #### [facility] [address] GFR/1.73 sq M.predicted MDRD (S/P/Bld) [Vol rate/Area] mL/min/{1.73_m2} Normal [facility] Comment on above: Performed By: #### C BC, PT, PTT, CK, HS TROP, CMP, PRL #### [address] Glucose [Mass/Vol] 107 mg/dL High 70-100 [facility] Comment on above: Result Comment: [facility] Glucose Reference Range is dependent on time and content of last meal. Glucose of more than 200 mg/dL in a nonstressed, ambulatory subject supports the diagnosis of Diabetes Mellitus. ADA recommended reference range Performed By: #### C BC, PT, PTT, CK, HS TROP, CMP, PRL #### [address] Potassium [Moles/Vol] 4.3 mmol/L Normal 3.5-5.1 [facility] Comment on above: Performed By: #### C BC, PT, PTT, CK, HS TROP, CMP, PRL #### [address] Sodium [Moles/Vol] 131 mmol/L Low 136-145 [facility] Comment on above: Performed By: #### C BC, PT, PTT, CK, HS TROP, CMP, PRL #### [place] [address] [place] Urea nitrogen [Mass/Vol] 19 mg/dL Normal 7-25 [facility] Comment on above: Performed By: #### C BC, PT, PTT, CK, HS TROP, CMP, PRL #### [address] Complete Blood Count Auto Di ffon 05-04-2024 Mean Corpuscular HGB Conc 32.9 g/dL Normal 32.5-35.6 [facility] Comment on above: Performed By: #### C BC, PT, PTT, CK, HS TROP, CMP, PRL #### [address] NRBC% 0.0 /100{WBC} Normal 0-0.5 [facility] Comment on above: Performed By: #### C BC, PT, PTT, CK, HS TROP, CMP, PRL #### [address] Erythrocyte distribution wid th [Ratio] by Automated countOrdered By: Magdy Douglass on 05-04-2024 Erythrocyte distribution width (RBC) [Ratio] 16.5 % High 12.0-14.8 [facility] Comment on above: Performed By: #### C BC, PT, PTT, CK, HS TROP, CMP, PRL #### [address] Erythrocytes [#/volume] in B lood by Automated countOrdered By: Magdy Douglass on 05-04-2024 RBC (Bld) [#/Vol] 4.97 10*6/uL Normal 3.90-5.60 [facility] Comment on above: Performed By: #### C BC, PT, PTT, CK, HS TROP, CMP, PRL #### [address] Folate [Mass/volume] in Seru m or PlasmaOrdered By: Janae Jose on 05-04-2024 Folate [Mass/Vol] 9.7 ng/mL >5.9 [facility] Comment on above: Folate reference ran ge: >5.9 ng/mlThe WHO technical consultation on folate and vitamin [id number] has determined that folate concentrations lessthan 4 ng/ml are considered deficient. Hematocrit [Volume Fraction] of Blood by Automated countOrdered By: Magdy Douglass on 05-04-2024 Hematocrit (Bld) [Volume fraction] 45.0 % Normal 38.8-50.0 [facility] Comment on above: Performed By: #### C BC, PT, PTT, CK, HS TROP, CMP, PRL #### [facility] [address] Hemoglobin [Mass/volume] in BloodOrdered By: Magdy Douglass on 05-04-2024 Hemoglobin (Bld) [Mass/Vol] 14.8 g/dL Normal 13.0-17.0 [facility] Comment on above: Performed By: #### C BC, PT, PTT, CK, HS TROP, CMP, PRL #### [facility] [address] Leukocytes [#/volume] correc srinivas for nucleated erythrocytes in Blood by Automated counOrdered By: Magdy Douglass on 05-04-2024 WBC corrected for nucl RBC Auto (Bld) [#/Vol] 9.6 10*3/uL 4.1-10.5 [facility] Leukocytes [#/volume] in Blo od by Automated countOrdered By: Magdy Douglass on 05-04-2024 WBC (Bld) [#/Vol] 9.6 10*3/uL Normal 4.1-10.5 [facility] Comment on above: Performed By: #### C BC, PT, PTT, CK, HS TROP, CMP, PRL #### [address] Lymphocytes [#/volume] in Bl ood by Automated countOrdered By: Magdy Douglass on 05-04-2024 Lymphocytes (Bld) [#/Vol] 0.5 10*3/uL Low 1.00-4.8 [facility] Comment on above: Performed By: #### C BC, PT, PTT, CK, HS TROP, CMP, PRL #### [place] [address] [place] Lymphocytes/100 leukocytes i n Blood by Automated countOrdered By: Magdy Douglass on 05-04-2024 Lymphocytes/100 WBC (Bld) 4.9 % Normal . [facility] Comment on above: Performed By: #### C BC, PT, PTT, CK, HS TROP, CMP, PRL #### [address] MCH [Entitic mass] by Automa srinivas countOrdered By: Magdy Douglass on 05-04-2024 MCH (RBC) [Entitic mass] 29.8 pg Normal 27.5-35.2 [facility] Comment on above: Performed By: #### C BC, PT, PTT, CK, HS TROP, CMP, PRL #### [address] MCHC Auto (RBC) [Mass/Vol]Or dered By: Magdy Douglass on 05-04-2024 MCHC (RBC) [Mass/Vol] 32.9 g/dL 32.5-35.6 [facility] MCV [Entitic volume] by Auto mated countOrdered By: Magdy Douglass on 05-04-2024 MCV (RBC) [Entitic vol] 90.4 fL Normal 83.5-101 [facility] Comment on above: Performed By: #### C BC, PT, PTT, CK, HS TROP, CMP, PRL #### [address] Neutrophils [#/volume] in Bl ood by Automated countOrdered By: Magdy Douglass on 05-04-2024 Neutrophils (Bld) [#/Vol] 8.9 10*3/uL High 1.8-7.7 [facility] Comment on above: Performed By: #### C BC, PT, PTT, CK, HS TROP, CMP, PRL #### [address] Nucleated erythrocytes [Pres ence] in Blood by Automated countOrdered By: Magdy Douglass on 05-04-2024 Nucleated RBC Auto Ql (Bld) 0.0 /100{WBC} 0-0.5 [facility] Platelet mean volume [Entiti c volume] in Blood by Automated countOrdered By: Magdy Douglass on 05-04-2024 Platelet mean volume (Bld) [Entitic vol] 6.5 fL Low 6.6-10.1 [facility] Comment on above: Performed By: #### C BC, PT, PTT, CK, HS TROP, CMP, PRL #### [address] Platelets [#/volume] in Bloo d by Automated countOrdered By: Magdy Douglass on 05-04-2024 Platelets (Bld) [#/Vol] 417 10*3/uL Normal 150-450 [facility] Comment on above: Performed By: #### C BC, PT, PTT, CK, HS TROP, CMP, PRL #### [address] Thyrotropin [Units/volume] i n Serum or PlasmaOrdered By: Janae Jose on 05-04-2024 TSH Qn 5.50 m[IU]/L High 0.45-5.33 [facility] Comment on above: Result Comment: PERF ORMED BY: [place] [address] PATHOLOGIST DISHING MACHINE OPERATOR ULISES MILLS M.D. Performed By: #### C BC, PT, PTT, CK, HS TROP, CMP, PRL #### [address] Vit. B12/Folate Profileon Folate 9.7 ng/mL Normal >5.9 [facility] Comment on above: Result Comment: Evelyn te reference range: >5.9 ng/ml The WHO technical consultation on folate and vitamin b12 deficiencies has determined that folate concentrations less than 4 ng/ml are considered deficient. Performed By: #### C BC, PT, PTT, CK, HS TROP, CMP, PRL #### [address] Vitamin B12 ser/plasOrdered By: Janae Jose on 05-04-2024 Cobalamin (Vitamin B12) [Mass/Vol] 500 pg/mL Normal 180-914 [facility] Comment on above: Performed By: #### C BC, PT, PTT, CK, HS TROP, CMP, PRL #### [address] Alanine aminotransferase [En zymatic activity/volume] in Serum or PlasmaOrdered By: Magdy Douglass on 05-03-2024 ALT [Catalytic activity/Vol] 14 U/L Normal 7-52 [facility] Comment on above: Performed By: #### C BC, PT, PTT, CK, HS TROP, CMP, PRL #### [facility] [address] Albumin [Mass/volume] in Ser um or Plasma by Bromocresol green (BCG) dye binding methoOrdered By: Magdy Douglass on 05-03-2024 Albumin BCG dye [Mass/Vol] 3.1 g/dL 3.5-5.7 [facility] Alkaline phosphatase [Enzyma tic activity/volume] in Serum or PlasmaOrdered By: Magdy Douglass on 05-03-2024 ALP [Catalytic activity/Vol] 131 U/L High 34-104 [facility] Comment on above: Performed By: #### C BC, PT, PTT, CK, HS TROP, CMP, PRL #### [address] Aspartate aminotransferase [ Enzymatic activity/volume] in Serum or PlasmaOrdered By: Magdy Douglass on 05-03-2024 AST [Catalytic activity/Vol] 12 U/L Low 13-39 [facility] Comment on above: Performed By: #### C BC, PT, PTT, CK, HS TROP, CMP, PRL #### [address] Bilirubin.total [Mass/volume ] in Serum or PlasmaOrdered By: Magdy Douglass on 05-03-2024 Bilirubin [Mass/Vol] 0.4 mg/dL Normal 0.3-1.0 [facility] Comment on above: Performed By: #### C BC, PT, PTT, CK, HS TROP, CMP, PRL #### [address] head/brain wo albert 05-03 CT head/brain wo [facility] [place] [address] CT Scan Report Signed Patient: Aaron Olivarez MR#: [id number] 00 : 1960 Acct:[id number] Age/Sex: 63 / M ADM Date: 05/01/24 Loc: Room: 2Q8880-3 Type: ADM IN Attending Dr: Janae Jose [...] Velázquez Jr., D.OJeremi05/03/2024 4:20 PM Dictation Location: [place] [address] Transcribed By: [facility] 05/03/24 1620 Dictated By: Patricio Velázquez Jr, DO 05/03/24 1618 Signed By: 05/03/24 1620 Normal [facility] Complete Blood Count Auto Di ffon 05-03-2024 Basophils (Bld) [#/Vol] 0.0 10*3/uL Normal 0.0-0.2 [facility] Comment on above: Result Comment: PERF ORMED BY: [place] [address] PATHOLOGIST DISHING MACHINE OPERATOR ULISES MILLS M.D. Performed By: #### C BC, PT, PTT, CK, HS TROP, CMP, PRL #### [address] Basophils/100 WBC (Bld) 0.3 % Normal . [facility] Comment on above: Performed By: #### C BC, PT, PTT, CK, HS TROP, CMP, PRL #### [address] Eosinophils (Bld) [#/Vol] 0.0 10*3/uL Normal 0.0-0.45 [facility] Comment on above: Performed By: #### C BC, PT, PTT, CK, HS TROP, CMP, PRL #### [address] Eosinophils/100 WBC (Bld) 0.0 % Normal . [facility] Comment on above: Performed By: #### C BC, PT, PTT, CK, HS TROP, CMP, PRL #### [address] Erythrocyte distribution width (RBC) [Ratio] 16.0 % High 12.0-14.8 [facility] Comment on above: Performed By: #### C BC, PT, PTT, CK, HS TROP, CMP, PRL #### [address] Hematocrit (Bld) [Volume fraction] 40.0 % Normal 38.8-50.0 [facility] Comment on above: Performed By: #### C BC, PT, PTT, CK, HS TROP, CMP, PRL #### [address] Hemoglobin (Bld) [Mass/Vol] 13.4 g/dL Normal 13.0-17.0 [facility] Comment on above: Performed By: #### C BC, PT, PTT, CK, HS TROP, CMP, PRL #### [address] Lymphocytes (Bld) [#/Vol] 0.4 10*3/uL Low 1.00-4.8 [facility] Comment on above: Performed By: #### C BC, PT, PTT, CK, HS TROP, CMP, PRL #### [address] Lymphocytes/100 WBC (Bld) 4.7 % Normal . [facility] Comment on above: Performed By: #### C BC, PT, PTT, CK, HS TROP, CMP, PRL #### [address] MCH (RBC) [Entitic mass] 30.1 pg Normal 27.5-35.2 [facility] Comment on above: Performed By: #### C BC, PT, PTT, CK, HS TROP, CMP, PRL #### [address] MCV (RBC) [Entitic vol] 90.1 fL Normal 83.5-101 [facility] Comment on above: Performed By: #### C BC, PT, PTT, CK, HS TROP, CMP, PRL #### [address] Mean Corpuscular HGB Conc 33.5 g/dL Normal 32.5-35.6 [facility] Comment on above: Performed By: #### C BC, PT, PTT, CK, HS TROP, CMP, PRL #### [address] Monocytes (Bld) [#/Vol] 0.2 10*3/uL Normal 0.0-0.8 [facility] Comment on above: Performed By: #### C BC, PT, PTT, CK, HS TROP, CMP, PRL #### [address] Monocytes/100 WBC (Bld) 2.4 % Normal . [facility] Comment on above: Performed By: #### C BC, PT, PTT, CK, HS TROP, CMP, PRL #### [address] Neutrophils (Bld) [#/Vol] 7.2 10*3/uL Normal 1.8-7.7 [facility] Comment on above: Performed By: #### C BC, PT, PTT, CK, HS TROP, CMP, PRL #### [address] Neutrophils/100 WBC (Bld) 92.6 % Normal . [facility] Comment on above: Performed By: #### C BC, PT, PTT, CK, HS TROP, CMP, PRL #### [address] NRBC% 0.0 /100{WBC} Normal 0-0.5 [facility] Comment on above: Performed By: #### C BC, PT, PTT, CK, HS TROP, CMP, PRL #### [address] Platelet mean volume (Bld) [Entitic vol] 6.3 fL Low 6.6-10.1 [facility] Comment on above: Performed By: #### C BC, PT, PTT, CK, HS TROP, CMP, PRL #### [address] Platelets (Bld) [#/Vol] 328 10*3/uL Normal 150-450 [facility] Comment on above: Performed By: #### C BC, PT, PTT, CK, HS TROP, CMP, PRL #### [address] RBC (Bld) [#/Vol] 4.44 10*6/uL Normal 3.90-5.60 [facility] Comment on above: Performed By: #### C BC, PT, PTT, CK, HS TROP, CMP, PRL #### [address] WBC (Bld) [#/Vol] 7.7 10*3/uL Normal 4.1-10.5 [facility] Comment on above: Performed By: #### C BC, PT, PTT, CK, HS TROP, CMP, PRL #### [address] Comprehensive Metabolic Pane wilner 05-03-2024 Albumin [Mass/Vol] 3.1 g/dL Low 3.5-5.7 [facility] Comment on above: Performed By: #### C BC, PT, PTT, CK, HS TROP, CMP, PRL #### [address] Anion gap [Moles/Vol] 4.4 mmol/L Low 6.0-15.0 [facility] Comment on above: Performed By: #### C BC, PT, PTT, CK, HS TROP, CMP, PRL #### [address] Calcium [Mass/Vol] 8.8 mg/dL Normal 8.6-10.3 [facility] Comment on above: Performed By: #### C BC, PT, PTT, CK, HS TROP, CMP, PRL #### [address] Chloride [Moles/Vol] 93 mmol/L Low 98-107 [facility] Comment on above: Performed By: #### C BC, PT, PTT, CK, HS TROP, CMP, PRL #### [address] CO2 [Moles/Vol] 40.3 mmol/L High 21.0-31.0 [facility] Comment on above: Performed By: #### C BC, PT, PTT, CK, HS TROP, CMP, PRL #### [address] Creatinine [Mass/Vol] 0.88 mg/dL Normal 0.70-1.30 [facility] Comment on above: Performed By: #### C BC, PT, PTT, CK, HS TROP, CMP, PRL #### [address] Creatinine Clr Calc Pharmacy 91.86 Normal [facility] Comment on above: Result Comment: PERF ORMED BY: [place] [address] PATHOLOGIST DISHING MACHINE OPERATOR ULISES MILLS M.D. Performed By: #### C BC, PT, PTT, CK, HS TROP, CMP, PRL #### [place] [address] [place] GFR/1.73 sq M.predicted MDRD (S/P/Bld) [Vol rate/Area] mL/min/{1.73_m2} Normal [facility] Comment on above: Performed By: #### C BC, PT, PTT, CK, HS TROP, CMP, PRL #### [address] Glucose [Mass/Vol] 112 mg/dL High 70-100 [facility] Comment on above: Result Comment: [facility] Glucose Reference Range is dependent on time and content of last meal. Glucose of more than 200 mg/dL in a nonstressed, ambulatory subject supports the diagnosis of Diabetes Mellitus. ADA recommended reference range Performed By: #### C BC, PT, PTT, CK, HS TROP, CMP, PRL #### [address] Potassium [Moles/Vol] 4.7 mmol/L Normal 3.5-5.1 [facility] Comment on above: Performed By: #### C BC, PT, PTT, CK, HS TROP, CMP, PRL #### [address] Sodium [Moles/Vol] 133 mmol/L Low 136-145 [facility] Comment on above: Performed By: #### C BC, PT, PTT, CK, HS TROP, CMP, PRL #### [address] Urea nitrogen [Mass/Vol] 20 mg/dL Normal 7-25 [facility] Comment on above: Performed By: #### C BC, PT, PTT, CK, HS TROP, CMP, PRL #### [address] ECG 12 lead ECGon 05-03-2024 ECG 12 lead ECG [facility] [place] [address] Electrocardiograph Report Signed Patient: Aaron Olivarez MR#: [id number] 00 : 1960 Acct:[id number] Age/Sex: 63 / M ADM Date: 05/01/24 Loc: Room: [address] [place] [address] Type: ADM IN Attending Dr: Janae Jose [...] Referred By: Electronically Signed By:YASMINE KIDD MD [facility] Transcribed By: MUS Signed By Yasmine Kidd [facility], [facility] 05/03/24 1735 Normal [facility] echo transthoracicon [facility] echo transthoracic [facility] [address] [place] [address] Echocardiogram Signed Patient: Aaron Olivarez MR#: [id number] 00 : 1960 Acct:[id number] Age/Sex: 63 / M ADM Date: 05/01/24 Loc: Room: [address] [place] [address] Type: ADM IN Attending Dr: Janae Jose MD Ordering Provider: Janae Jose MD Date of Service: 05/02/24 [facility] echo transthoracic: evaluate lv function Copies to: Yasmine Kidd MD, [facility] Janae Jose MD BSA: 2.0 m2 BP: [...] 05/03/24 0946 Signed By: Yasmine Kidd MD, [facility] 05/03/24 1524 Normal [facility] Protein [Mass/volume] in Ser um or PlasmaOrdered By: Magdy Douglass on 05-03-2024 Protein [Mass/Vol] 5.9 g/dL Low 6.4-8.9 [facility] Comment on above: Performed By: #### C BC, PT, PTT, CK, HS TROP, CMP, PRL #### [facility] [address] [place] [address] [place] Serum globulin measurement b y calculation (mass/volume)Ordered By: Magdy Douglass on 05-03-2024 Globulin (S) [Mass/Vol] 2.8 g/dL [facility] Comment on above: Performed By: #### C BC, PT, PTT, CK, HS TROP, CMP, PRL #### [facility] [address] Serum or plasma albumin/glob ulin mass ratioOrdered By: Magdy Douglass on 05-03-2024 Albumin/Globulin [Mass ratio] 1.1 {ratio} Normal [facility] Comment on above: Performed By: #### C BC, PT, PTT, CK, HS TROP, CMP, PRL #### [place] [id number] [facility] XR chest 1V portableon 05-03 XR chest 1V portable [facility] [address] [place] [address] XRay Report Signed Patient: Aaron Olivarez MR#: [id number] 00 : 1960 Acct:[id number] Age/Sex: 63 / M ADM Date: 05/01/24 Loc: Room: [address] [place] [address] Type: ADM IN Attending Dr: Janae Jose [...] Velázquez Jr., D.O.05/03/2024 10:40 AM Dictation Location: [place] [address] Transcribed By: [facility] 05/03/24 1040 Dictated By: Patricio Velázquez Jr, DO 05/03/24 1038 Signed By: 05/03/24 1040 Normal [facility] C reactive protein [Mass/vol ume] in Serum or PlasmaOrdered By: Magdy Douglass on 05-02-2024 CRP [Mass/Vol] 2.5 mg/dL 0.0-0.5 [facility] C-Reactive Proteinon 024 C-Reactive Protein 2.5 mg/dL High 0.0-0.5 [facility] Comment on above: Result Comment: PERF ORMED BY: [place] [address] PATHOLOGIST DISHING MACHINE OPERATOR ULISES MILLS M.D. Performed By: #### C BC, PT, PTT, CK, HS TROP, CMP, PRL #### [address] Complete Blood Count Auto Di ffon 05-02-2024 Basophils (Bld) [#/Vol] 0.0 10*3/uL Normal 0.0-0.2 [facility] Comment on above: Result Comment: PERF ORMED BY: [place] [address] PATHOLOGIST DISHING MACHINE OPERATOR ULISES MILLS M.D. Performed By: #### C BC, PT, PTT, CK, HS TROP, CMP, PRL #### [address] Basophils/100 WBC (Bld) 0.2 % Normal . [facility] Comment on above: Performed By: #### C BC, PT, PTT, CK, HS TROP, CMP, PRL #### [address] Eosinophils (Bld) [#/Vol] 0.0 10*3/uL Normal 0.0-0.45 [facility] Comment on above: Performed By: #### C BC, PT, PTT, CK, HS TROP, CMP, PRL #### [address] Eosinophils/100 WBC (Bld) 0.0 % Normal . [facility] Comment on above: Performed By: #### C BC, PT, PTT, CK, HS TROP, CMP, PRL #### [address] Erythrocyte distribution width (RBC) [Ratio] 15.5 % High 12.0-14.8 [facility] Comment on above: Performed By: #### C BC, PT, PTT, CK, HS TROP, CMP, PRL #### [address] Hematocrit (Bld) [Volume fraction] 37.0 % Low 38.8-50.0 [facility] Comment on above: Performed By: #### C BC, PT, PTT, CK, HS TROP, CMP, PRL #### [address] Hemoglobin (Bld) [Mass/Vol] 12.3 g/dL Low 13.0-17.0 [facility] Comment on above: Performed By: #### C BC, PT, PTT, CK, HS TROP, CMP, PRL #### [address] Lymphocytes (Bld) [#/Vol] 0.6 10*3/uL Low 1.00-4.8 [facility] Comment on above: Performed By: #### C BC, PT, PTT, CK, HS TROP, CMP, PRL #### [address] Lymphocytes/100 WBC (Bld) 7.8 % Normal . [facility] Comment on above: Performed By: #### C BC, PT, PTT, CK, HS TROP, CMP, PRL #### [address] MCH (RBC) [Entitic mass] 29.8 pg Normal 27.5-35.2 [facility] Comment on above: Performed By: #### C BC, PT, PTT, CK, HS TROP, CMP, PRL #### [address] MCV (RBC) [Entitic vol] 89.7 fL Normal 83.5-101 [facility] Comment on above: Performed By: #### C BC, PT, PTT, CK, HS TROP, CMP, PRL #### [address] Mean Corpuscular HGB Conc 33.2 g/dL Normal 32.5-35.6 [facility] Comment on above: Performed By: #### C BC, PT, PTT, CK, HS TROP, CMP, PRL #### [address] Monocytes (Bld) [#/Vol] 0.6 10*3/uL Normal 0.0-0.8 [facility] Comment on above: Performed By: #### C BC, PT, PTT, CK, HS TROP, CMP, PRL #### [address] Monocytes/100 WBC (Bld) 8.2 % Normal . [facility] Comment on above: Performed By: #### C BC, PT, PTT, CK, HS TROP, CMP, PRL #### [address] Neutrophils (Bld) [#/Vol] 6.3 10*3/uL Normal 1.8-7.7 [facility] Comment on above: Performed By: #### C BC, PT, PTT, CK, HS TROP, CMP, PRL #### [address] Neutrophils/100 WBC (Bld) 83.8 % Normal . [facility] Comment on above: Performed By: #### C BC, PT, PTT, CK, HS TROP, CMP, PRL #### [address] NRBC% 0.2 /100{WBC} Normal 0-0.5 [facility] Comment on above: Performed By: #### C BC, PT, PTT, CK, HS TROP, CMP, PRL #### [address] Platelet mean volume (Bld) [Entitic vol] 6.5 fL Low 6.6-10.1 [facility] Comment on above: Performed By: #### C BC, PT, PTT, CK, HS TROP, CMP, PRL #### [address] Platelets (Bld) [#/Vol] 276 10*3/uL Normal 150-450 [facility] Comment on above: Performed By: #### C BC, PT, PTT, CK, HS TROP, CMP, PRL #### [address] RBC (Bld) [#/Vol] 4.13 10*6/uL Normal 3.90-5.60 [facility] Comment on above: Performed By: #### C BC, PT, PTT, CK, HS TROP, CMP, PRL #### [address] WBC (Bld) [#/Vol] 7.5 10*3/uL Normal 4.1-10.5 [facility] Comment on above: Performed By: #### C BC, PT, PTT, CK, HS TROP, CMP, PRL #### [address] Comprehensive Metabolic Pane wilner 05-02-2024 Albumin [Mass/Vol] 3.0 g/dL Low 3.5-5.7 [facility] Comment on above: Performed By: #### C BC, PT, PTT, CK, HS TROP, CMP, PRL #### [address] Albumin/Globulin [Mass ratio] 1.2 {ratio} Normal [facility] Comment on above: Performed By: #### C BC, PT, PTT, CK, HS TROP, CMP, PRL #### [address] ALP [Catalytic activity/Vol] 123 U/L High 34-104 [facility] Comment on above: Performed By: #### C BC, PT, PTT, CK, HS TROP, CMP, PRL #### [address] ALT [Catalytic activity/Vol] 14 U/L Normal 7-52 [facility] Comment on above: Performed By: #### C BC, PT, PTT, CK, HS TROP, CMP, PRL #### [address] Anion gap [Moles/Vol] 3.5 mmol/L Low 6.0-15.0 [facility] Comment on above: Performed By: #### C BC, PT, PTT, CK, HS TROP, CMP, PRL #### [address] AST [Catalytic activity/Vol] 12 U/L Low 13-39 [facility] Comment on above: Performed By: #### C BC, PT, PTT, CK, HS TROP, CMP, PRL #### [address] Bilirubin [Mass/Vol] 0.3 mg/dL Normal 0.3-1.0 [facility] Comment on above: Performed By: #### C BC, PT, PTT, CK, HS TROP, CMP, PRL #### [address] Calcium [Mass/Vol] 8.7 mg/dL Normal 8.6-10.3 [facility] Comment on above: Performed By: #### C BC, PT, PTT, CK, HS TROP, CMP, PRL #### [address] Chloride [Moles/Vol] 91 mmol/L Low 98-107 [facility] Comment on above: Performed By: #### C BC, PT, PTT, CK, HS TROP, CMP, PRL #### [address] CO2 [Moles/Vol] 40.3 mmol/L High 21.0-31.0 [facility] Comment on above: Performed By: #### C BC, PT, PTT, CK, HS TROP, CMP, PRL #### [address] Creatinine [Mass/Vol] 0.89 mg/dL Normal 0.70-1.30 [facility] Comment on above: Performed By: #### C BC, PT, PTT, CK, HS TROP, CMP, PRL #### [address] Creatinine Clr Calc Pharmacy 90.82 Normal [facility] Comment on above: Performed By: #### C BC, PT, PTT, CK, HS TROP, CMP, PRL #### [address] GFR/1.73 sq M.predicted MDRD (S/P/Bld) [Vol rate/Area] mL/min/{1.73_m2} Normal [facility] Comment on above: Performed By: #### C BC, PT, PTT, CK, HS TROP, CMP, PRL #### [address] Globulin (S) [Mass/Vol] 2.5 g/dL Normal [facility] Comment on above: Performed By: #### C BC, PT, PTT, CK, HS TROP, CMP, PRL #### [address] Glucose [Mass/Vol] 100 mg/dL Normal 70-100 [facility] Comment on above: Result Comment: [facility] Glucose Reference Range is dependent on time and content of last meal. Glucose of more than 200 mg/dL in a nonstressed, ambulatory subject supports the diagnosis of Diabetes Mellitus. ADA recommended reference range Performed By: #### C BC, PT, PTT, CK, HS TROP, CMP, PRL #### [address] Potassium [Moles/Vol] 4.8 mmol/L Normal 3.5-5.1 [facility] Comment on above: Performed By: #### C BC, PT, PTT, CK, HS TROP, CMP, PRL #### [address] Protein [Mass/Vol] 5.5 g/dL Low 6.4-8.9 [facility] Comment on above: Performed By: #### C BC, PT, PTT, CK, HS TROP, CMP, PRL #### [address] Sodium [Moles/Vol] 130 mmol/L Low 136-145 [facility] Comment on above: Performed By: #### C BC, PT, PTT, CK, HS TROP, CMP, PRL #### [facility] [address] Urea nitrogen [Mass/Vol] 19 mg/dL Normal 7-25 [facility] Comment on above: Performed By: #### C BC, PT, PTT, CK, HS TROP, CMP, PRL #### [facility] [address] Lactate [Moles/volume] in Se rum or PlasmaOrdered By: Magdy Douglass on 05-02-2024 Lactate [Moles/Vol] 0.6 mmol/L Normal 0.5-2.2 [facility] Comment on above: Result Comment: PERF ORMED BY: [place] [address] PATHOLOGIST DISHING MACHINE OPERATOR ULISES MILLS M.D. Performed By: #### C BC, PT, PTT, CK, HS TROP, CMP, PRL #### [address] Legionella Pneumophilia Ag, Uron 05-02-2024 Legionella Pneumophilia Ag, Ur Negative Normal Negative [facility] Comment on above: Order Comment: SOURC E OF SPECIMEN: Urine Result Comment: Pres umptive negative for L. pneumophila serogroup 1 antigen in urine, suggesting no recent or current infection. Legionnaires' disease cannot be ruled out since other serogroups and species may also cause disease. Performed at: - [address] [id number] Full Stack Web Developer: Gareth Alford MD, Phone: [phone] Performed By: #### C BC, PT, PTT, CK, HS TROP, CMP, PRL #### [facility] [address] [place] [address] [place] Magnesium [Mass/volume] in S andrei or PlasmaOrdered By: Magdy Douglass on 05-02-2024 Magnesium [Mass/Vol] 2.1 mg/dL Normal 1.9-2.7 [facility] Comment on above: Performed By: #### C BC, PT, PTT, CK, HS TROP, CMP, PRL #### [address] Strep Pneumoniae Ag, Uron Body Fluid Culture Not indicated. Normal . [facility] Comment on above: Order Comment: SOURC E OF SPECIMEN: Urine Performed By: #### C BC, PT, PTT, CK, HS TROP, CMP, PRL #### [address] Organism ID Not indicated. Normal . [facility] Comment on above: Order Comment: SOURC E OF SPECIMEN: Urine Performed By: #### C BC, PT, PTT, CK, HS TROP, CMP, PRL #### [address] Please Note: Normal . [facility] Comment on above: Order Comment: SOURC E OF SPECIMEN: Urine Result Comment: Alice ege of [place] [employer] standards require a culture to be performed on CSF specimens submitted for bacterial antigen testing. (CAP [id number]) Urine specimens will not be cultured. Performed at: [address] [id number] Full Stack Web Developer: Gareth Alford MD, Phone: [phone] PERFORMED BY: [place] [address] PATHOLOGIST DISHING MACHINE OPERATOR ULISES MILLS M.D. Performed By: #### C BC, PT, PTT, CK, HS TROP, CMP, PRL #### [address] Specimen source Nom (Unsp spec) Urine Normal . [facility] Comment on above: Order Comment: SOURC E OF SPECIMEN: Urine Performed By: #### C BC, PT, PTT, CK, HS TROP, CMP, PRL #### [address] Streptococcus Pneumoniae Ag Negative Normal Negative [facility] Comment on above: Order Comment: SOURC E OF SPECIMEN: Urine Performed By: #### C BC, PT, PTT, CK, HS TROP, CMP, PRL #### [address] Troponin I High Sensitivityo n 05-02-2024 Troponin I High Sensitivity 74.8 pg/mL Off scale high 0.0-20.0 [facility] Comment on above: Result Comment: Crit ical Result : Called to and read back by: JAYLAN YAO at: 05/02/2024 15:02:51 by:JANET PERFORMED BY: [place] [address] PATHOLOGIST DISHING MACHINE OPERATOR ULISES MILLS M.D. Performed By: #### C BC, PT, PTT, CK, HS TROP, CMP, PRL #### [facility] [address] [place], [place] [id number] [place] Troponin I High Sensitivity 99.0 pg/mL Off scale high 0.0-20.0 [facility] Comment on above: Result Comment: Crit ical Result : Called to and read back by: MANAN CHEEK at: 05/02/2024 00:45:01 by:[id number] PERFORMED BY: [place] [address] PATHOLOGIST DISHING MACHINE OPERATOR ULISES MILLS M.D. Performed By: #### C BC, PT, PTT, CK, HS TROP, CMP, PRL #### [facility] [address] [place] [address] [place] Troponin I.cardiac [Mass/vol ume] in Serum or Plasma by Detection limit <= 0.01 ng/Ordered By: Janea Jose on 05-02-2024 Troponin I.cardiac DL <= 0.01 ng/mL [Mass/Vol] 74.8 pg/mL 0.0-20.0 [facility] Comment on above: Critical Result : Ca lled to and read back by: JAYLAN YAO at: 05/02/2024 15:02:51 by:JANET ACETAMINOPHENon 11-24-2022 Acetaminophen [Mass/Vol] ug/mL Normal 10.0-30.0 The Comment on above: Performed By: #### S ALYC, ACET, CMP, ETH #### Laboratory [address] [place] [address] [address] Renny Azevedo CBC AUTO DIFFon 11-24-2022 BASO # 0.0 103/ul Normal 0.0-0.1 [facility] Comment on above: Performed By: #### C BC #### Laboratory [address] [place] [address] [address] Renny Azevedo Basophils/100 WBC (Bld) 0.8 % Normal 0.2-2.0 [facility] Comment on above: Performed By: #### C BC #### Laboratory [address] [place] [address] Dr. Renny Azevedo EO # 0.3 103/ul Normal 0.0-0.7 [facility] Comment on above: Performed By: #### C BC #### Laboratory [address] [place] [address] Dr. Renny Azevedo Eosinophils/100 WBC (Bld) 6.2 % Normal 0.9-7.0 [facility] Comment on above: Performed By: #### C BC #### Laboratory [address] [place] [address] Dr. Renny Azevedo Erythrocyte distribution width (RBC) [Ratio] 14.8 % Normal 11.0-15.0 [facility] Comment on above: Performed By: #### C BC #### Laboratory [address] [place] [address] Dr. Renny Azevedo Hematocrit (Bld) [Volume fraction] 38.6 % Critically low 42.0-54.0 [facility] Comment on above: Performed By: #### C BC #### Laboratory [address] [place] [address] Dr. Renny Azevedo Hemoglobin (Bld) [Mass/Vol] 12.6 g/dL Critically low 14.0-18.0 [facility] Comment on above: Performed By: #### C BC #### Laboratory [address] [place] [address] Dr. Renny Azevedo IG # 0.01 10e3/ul Normal 0.00-0.03 [facility] Comment on above: Performed By: #### C BC #### Laboratory [address] [place] [address] Dr. Renny Azevedo IG % 0.2 % Normal 0.0-0.5 [facility] Comment on above: Performed By: #### C BC #### Laboratory [address] [place] [address] Dr. Renny Azevedo LYMPH # 1.4 103/ul Normal 1.2-3.8 [facility] Comment on above: Performed By: #### C BC #### Laboratory [address] [place] [address] Dr. Renny Azevedo Lymphocytes/100 WBC (Bld) 28.1 % Normal 20.5-60.0 [facility] Comment on above: Performed By: #### C BC #### Laboratory [address] [place] [address] Dr. Renny Azevedo MANUAL DIFF REQ NO Normal [facility] Comment on above: Performed By: #### C BC #### Laboratory [address] [place] [address] Dr. Renny Azevedo MCH (RBC) [Entitic mass] 31.0 pg Normal 25.9-34.0 [facility] Comment on above: Performed By: #### C BC #### Laboratory [address] [place] [address] Dr. Renny Azevedo MCHC (RBC) [Mass/Vol] 32.6 g/dL Normal 29.9-35.2 [facility] Comment on above: Performed By: #### C BC #### Laboratory [address] [place] [address] Dr. Renny Azevedo MCV (RBC) [Entitic vol] 95.1 fL Critically high 80.0-94.0 [facility] Comment on above: Performed By: #### C BC #### Laboratory [address] [place] [address] Dr. Renny Azevedo MONO # 0.3 103/ul Normal 0.3-0.8 [facility] Comment on above: Performed By: #### C BC #### Laboratory [address] [place] [address] Dr. Renny Azevedo Monocytes/100 WBC (Bld) 5.8 % Normal 1.7-12.0 [facility] Comment on above: Performed By: #### C BC #### Laboratory [address] [place] [address] [address] Renny Azevedo NEUT # 3.0 103/ul Normal 1.4-6.5 [facility] Comment on above: Performed By: #### C BC #### Laboratory [address] [place] [address] [address] Renny Azevedo Neutrophils/100 WBC (Bld) 58.9 % Normal 43.0-75.0 [facility] Comment on above: Performed By: #### C BC #### Laboratory [address] [place] [address] [address] Renny Azevedo Platelet mean volume (Bld) [Entitic vol] 8.8 fL Critically low 9.5-13.5 [facility] Comment on above: Performed By: #### C BC #### Laboratory [address] [place] [address] Dr. Renny Azevedo PLT 260 103/ul Normal 150-450 The Comment on above: Performed By: #### C BC #### Laboratory [address] [place] [address] [address] Renny Azevedo RBC 4.06 106/ul Critically low 4.70-6.10 [facility] Comment on above: Performed By: #### C BC #### Laboratory [address] [address] [address] Renny Azevedo WBC 5.0 103/ul Normal 4.0-11.0 The Comment on above: Performed By: #### C BC #### Laboratory [address] [place] [address] CSPINE WO CONon [...] by: VIC ADAMES Date: 2022-11-24 05:[address] [facility] [address] FACIAL BONES WO CONon CT [...] ANNA RICO Date: 2022-11-24 05:43 Normal The DRUG SCREEN RAPID (URINE)on 11-24-2022 AMP Positive Abnormal NEGATIVE The Comment on above: Performed By: #### D RUGRPD #### Laboratory [address] [place] [address] Dr. Renny Azevedo BAR Negative Normal NEGATIVE The Comment on above: Performed By: #### D RUGRPD #### Laboratory [address] [address] [address] Renny Azevedo BUP Negative Normal NEGATIVE The Comment on above: Performed By: #### D RUGRPD #### Laboratory [address] [place] [address] Dr. Renny Azevedo BZO Negative Normal NEGATIVE The Comment on above: Performed By: #### D RUGRPD #### Laboratory [address] [place] [address] Dr. Renny Azevedo SHAYE Positive Abnormal NEGATIVE The Comment on above: Performed By: #### D RUGRPD #### Laboratory [address] [place] [address] Dr. Renny Azevedo CUT-OFFS SEE BELOW Normal The Comment on above: Result Comment: AMP (Amphetamine): 500ng/mL, BAR (Barbituates): 200 ng/mL, BZO (Benzodiazepines): 150 ng/mL, BUP (Buprenorphine): 10 ng/mL, SHAYE (Cocaine): 150 ng/mL, mAMP (Methamphetamine): 500 ng/mL, MTD (Methadone): 200 ng/mL, OPI (Opiates): 100 ng/mL, OXY (Oxycodone): 100 ng/mL, PCP (Phencyclidine): 25 ng/mL, PPX (Propoxyphene): 300 ng/mL, THC (Cannabinoids): 50 ng/mL, TCA (Trycyclic Antidepressants): 300 ng/mL Performed By: #### D RUGRPD #### Laboratory [address] [place] [address] Dr. Renny Azevedo DRUG CUT HEADER DRUG CLASS TEST SYST EM CUT-OFF CONCENTRATIONS ARE FOLLOWS: Normal The Comment on above: Performed By: #### D RUGRPD #### Laboratory [address] [place] [address] Dr. Renny Azevedo mAMP Positive Abnormal NEGATIVE The Comment on above: Performed By: #### D RUGRPD #### Laboratory [address] [place] [address] Dr. Renny Azevedo MTD Negative Normal NEGATIVE [facility] Comment on above: Performed By: #### D RUGRPD #### Laboratory [address] [place] [address] Dr. Renny Azevedo OPI Negative Normal NEGATIVE The Comment on above: Performed By: #### D RUGRPD #### Laboratory [address] [place] [address] Dr. Renny Azevedo OXY Negative Normal NEGATIVE The Comment on above: Performed By: #### D RUGRPD #### Laboratory [address] [place] [address] Dr. Renny Azevedo PCP Negative Normal NEGATIVE [facility] Comment on above: Performed By: #### D RUGRPD #### Laboratory [address] [place] [address] Dr. Renny Azevedo PPX Negative Normal NEGATIVE The Comment on above: Performed By: #### D RUGRPD #### Laboratory [address] [place] [address] Dr. Renny Azevedo TCA Negative Normal NEGATIVE The Comment on above: Performed By: #### D RUGRPD #### Laboratory [address] [place] [address] Dr. Renny Azevedo THC Negative Normal NEGATIVE [facility] Comment on above: Performed By: #### D RUGRPD #### Laboratory [address] [place] [address] Dr. Renny Azevedo ETHANOL (BLD ALC)on 11-24-19 23 ALC NOTE NOTE: 80 mg/dl is th e legal limit for a blood alcohol level Normal [facility] Comment on above: Performed By: #### E TH #### Laboratory [address] [place] [address] Dr. Renny Azevedo Ethanol [Mass/Vol] 169 mg/dL Normal [facility] Comment on above: Performed By: #### E TH #### Laboratory [address] [place] [address] Dr. Renny Azevedo ALC NOTE NOTE: 80 mg/dl is th e legal limit for a blood alcohol level Normal [facility] Comment on above: Performed By: #### S ALYC, ACET, CMP, ETH #### Laboratory [address] [place] [address] Dr. Renny Azevedo Ethanol [Mass/Vol] 239 mg/dL Normal [facility] Comment on above: Performed By: #### S ALYC, ACET, CMP, ETH #### Laboratory [address] [place] [address] Dr. Renny Azevedo PROF 14(COMP METB)on 023 Albumin [Mass/Vol] 4.2 g/dL Normal 3.4-5.0 [facility] Comment on above: Performed By: #### S ALYC, ACET, CMP, ETH #### Laboratory [address] [place] [address] Dr. Renny Azevedo Albumin/Globulin [Mass ratio] 1.3 {ratio} Normal [facility] Comment on above: Performed By: #### S ALYC, ACET, CMP, ETH #### Laboratory [address] [place] [address] Dr. Renny Azevedo ALP [Catalytic activity/Vol] 99 U/L Normal 46-116 [facility] Comment on above: Performed By: #### S ALYC, ACET, CMP, ETH #### Laboratory [address] [address] [address] Renny Azevedo ALT [Catalytic activity/Vol] 157 U/L Critically high 16-63 [facility] Comment on above: Performed By: #### S ALYC, ACET, CMP, ETH #### Laboratory [address] [address] [address] Renny Azevedo Anion gap [Moles/Vol] 10.0 mmol/L Normal [facility] Comment on above: Performed By: #### S ALYC, ACET, CMP, ETH #### Laboratory [address] [place] [address] Dr. Renny Azevedo AST [Catalytic activity/Vol] 362 U/L Critically high 15-37 [facility] Comment on above: Performed By: #### S ALYC, ACET, CMP, ETH #### Laboratory [address] [address] [address] Renny Azevedo Bilirubin [Mass/Vol] 0.3 mg/dL Normal 0.2-1.0 [facility] Comment on above: Performed By: #### S ALYC, ACET, CMP, ETH #### Laboratory [address] [place] [address] Dr. Renny Azevedo Calcium [Mass/Vol] 8.7 mg/dL Normal 8.5-10.1 [facility] Comment on above: Performed By: #### S ALYC, ACET, CMP, ETH #### Laboratory [address] [address] [address] Renny Azevedo Chloride [Moles/Vol] 92 mmol/L Critically low 98-107 [facility] Comment on above: Performed By: #### S ALYC, ACET, CMP, ETH #### Laboratory [address] [address] [address] Renny Azevedo CO2 [Moles/Vol] 30.4 mmol/L Normal 21.0-32.0 [facility] Comment on above: Performed By: #### S ALYC, ACET, CMP, ETH #### Laboratory [address] [place] [address] Dr. Renny Azevedo Creatinine [Mass/Vol] 1.60 mg/dL Critically high 0.70-1.30 The Comment on above: Performed By: #### S ALYC, ACET, CMP, ETH #### Laboratory [address] [place] [address] Dr. Renny Azevedo EGFR-AF WELSH 53 mL/min/1.73m2 Critically low >=60 The Comment on above: Performed By: #### S ALYC, ACET, CMP, ETH #### Laboratory [address] [place] [address] Dr. Renny Azevedo EGFR-NON AF WELSH 44 mL/min/1.73m2 Critically low >=60 The Comment on above: Performed By: #### S ALYC, ACET, CMP, ETH #### Laboratory [address] [place] [address] Dr. Renny Azevedo Globulin (S) [Mass/Vol] 3.2 g/dL Normal The Comment on above: Performed By: #### S ALYC, ACET, CMP, ETH #### Laboratory [address] [place] [address] Dr. Renny Azevedo Glucose [Mass/Vol] 82 mg/dL Normal 74-[address] [facility] Comment on above: Performed By: #### S ALYC, ACET, CMP, ETH #### Laboratory [address] [place] [address] Dr. Renny Azevedo Potassium [Moles/Vol] 3.4 mmol/L Critically low 3.5-5.1 The Comment on above: Performed By: #### S ALYC, ACET, CMP, ETH #### Laboratory [address] [place] [address] Dr. Renny Azevedo Protein [Mass/Vol] 7.4 g/dL Normal 6.4-8.[address] [facility] Comment on above: Performed By: #### S ALYC, ACET, CMP, ETH #### Laboratory [address] [address] [address] Renny Azevedo Sodium [Moles/Vol] 129 mmol/L Critically low 136-145 [facility] Comment on above: Performed By: #### S ALYC, ACET, CMP, ETH #### Laboratory [address] [address] [address] Renny Azevedo Urea nitrogen [Mass/Vol] 17.0 mg/dL Normal 7.0-18.0 [facility] Comment on above: Performed By: #### S ALYC, ACET, CMP, ETH #### Laboratory [address] [address] [address] Renny Azevedo Urea nitrogen/Creatinine [Mass ratio] 10.6 mg/mg Normal [facility] Comment on above: Performed By: #### S ALYC, ACET, CMP, ETH #### Laboratory [address] [place] [address] Dr. Renny Azevedo SALICYLATEon 11-24-2022 SALICYLATE 4.7 mg/dL Normal <=19.9 [facility] Comment on above: Performed By: #### S ALYC, ACET, CMP, ETH #### Laboratory [address] [place] [address] LUMBAR SPINE WO [...] Tavaresigned by:Jay Gross MD10/14/18Final result Normal [facility] COMPLETE BLOOD COUNT W/DIFFo n 07-02-2018 Basophils Auto #/vol (Bld) 0.02 10*3/uL Normal 0.00-0.20 [facility] Comment on above: Performed By: #### C BCD ####[facility] PATHOLOGY [id number] [place] [address], Basophils/100 WBC Auto (Bld) 0.5 % Normal <=1.9 [facility] Comment on above: Performed By: #### C BCD ####[facility] PATHOLOGY [id number] [place] [address], Eosinophils Auto #/vol (Bld) 0.08 10*3/uL Normal 0.00-0.70 [facility] Comment on above: Performed By: #### C BCD ####[facility] PATHOLOGY PODMUTEEBI[address] [place] [address], Eosinophils/100 WBC Auto (Bld) 2.0 % Normal 0.1-4.0 [facility] Comment on above: Performed By: #### C BCD ####[facility] PATHOLOGY LUJLAWTZSA[address] [place] [address], Erythrocyte distribution width Auto Ratio (RBC) 13.5 % Normal 11.5-14.5 [facility] Comment on above: Performed By: #### C BCD ####[facility] PATHOLOGY LSUAVZUSHB[address] [place] [address], Hematocrit Auto Volume Fraction (Bld) 42.3 % Normal 41.0-53.0 [facility] Comment on above: Performed By: #### C BCD ####[facility] PATHOLOGY [id number] [place] [address], Hemoglobin mass conc (Bld) 13.9 g/dL Normal 13.9-16.3 The [facility] Comment on above: Performed By: #### C BCD ####[facility] PATHOLOGY FNYPDMYAND[address] [place] [address], Lymphocytes Auto #/vol (Bld) 1.22 10*3/uL Normal 1.00-4.80 [facility] Comment on above: Performed By: #### C BCD ####[facility] PATHOLOGY [id number] [place] [address], Lymphocytes/100 WBC Auto (Bld) 30.9 % Normal 24.0-44.0 [facility] Comment on above: Performed By: #### C BCD ####[facility] PATHOLOGY AWSEIOKRPF[address] [place] [address], MCH Auto Entitic mass (RBC) 28.8 pg Normal 26.0-34.0 The [facility] Comment on above: Performed By: #### C BCD ####[facility] PATHOLOGY [id number] [place] [address], MCHC Auto mass conc (RBC) 32.9 g/dL Normal 32.0-35.9 The [facility] Comment on above: Performed By: #### C BCD ####[facility] PATHOLOGY LVYZJWPOGC[address] [place] [address], MCV Auto Entitic volume (RBC) 88 fL Normal 80-100 The [facility] Comment on above: Performed By: #### C BCD ####[facility] PATHOLOGY MAGNGKXIRB[address] [place] [address], Monocytes Auto #/vol (Bld) 0.23 10*3/uL Normal 0.20-1.00 The [facility] Comment on above: Performed By: #### C BCD ####[facility] PATHOLOGY [id number] [place] [address], Monocytes/100 WBC Auto (Bld) 5.8 % Normal 2.0-11.0 The [facility] Comment on above: Performed By: #### C BCD ####[facility] PATHOLOGY [id number] [place] [address] [place], Neutrophils Auto #/vol (Bld) 2.40 10*3/uL Normal 1.50-8.00 [facility] Comment on above: Performed By: #### C BCD ####[facility] PATHOLOGY JRXYGDIANS2252 [place], [place], Neutrophils/100 WBC Auto (Bld) 60.8 % Normal 31.0-76.0 [facility] Comment on above: Performed By: #### C BCD ####[facility] PATHOLOGY [id number] [place] [address], Platelet mean volume Auto Entitic volume (Bld) 9.6 fL Normal 8.5-11.5 [facility] Comment on above: Performed By: #### C BCD ####[facility] PATHOLOGY [id number] [place] [address], Platelets Auto #/vol (Bld) 243 10*3/uL Normal 150-400 [facility] Comment on above: Performed By: #### C BCD ####[facility] PATHOLOGY [id number] [place] [address], RBC Auto #/vol (Bld) 4.83 10*6/uL Normal 4.50-5.90 Th e [facility] Comment on above: Performed By: #### C BCD ####[facility] PATHOLOGY JIWXEDQWOM[address] [place] [address], WBC Auto #/vol (Bld) 4.0 10*3/uL Low 4.5-11.5 The [facility] Comment on above: Performed By: #### C BCD ####S PATHOLOGY EPNXYNGUNI2565 [place], [place], HEPATIC FUNCTION PANELon Albumin mass conc 4.2 g/dL Normal 3.4-5.1 The [facility] Comment on above: Performed By: #### H EPATIC ####S PATHOLOGY NUWMAFQOWP[address] [place] [address], ALK 92 IU/L Normal 40-200 [facility] Comment on above: Performed By: #### H EPATIC ####[facility] BEWZVMGKZQ2109 [place], [place], ALT enzyme act/vol 18 U/L Normal 7-40 The [facility] Comment on above: Performed By: #### H EPATIC ####[facility] PATHOLOGY TQQBHSARNG2803 [place], [place], AST enzyme act/vol 21 U/L Normal 7-40 The [facility] Comment on above: Performed By: #### H EPATIC ####[facility] PATHOLOGY PCFRVUAOVE[address] [place] [address], Bilirubin mass conc 0.10 mg/dL Normal 0.10-0.30 [facility] Comment on above: Performed By: #### H EPATIC ####[facility] PATHOLOGY [id number] [place] [address], Bilirubin Ql (U) 0.6 mg/dL Normal 0.1-1.5 The [facility] Comment on above: Performed By: #### H EPATIC ####[facility] PATHOLOGY YXESEHFKRU[address] [place] [address], Protein mass conc 6.1 g/dL Normal 5.8-8.1 The [facility] Comment on above: Performed By: #### H EPATIC ####[facility] PATHOLOGY SVFBGRDGPM[address] [place] [address], HEPATITIS B CORE ANTIBODYon 07-02-2018 CORE Nonreactive Normal Nonreactive The [facility] Comment on above: Performed By: #### A NTI-HBS, HBSAG, CORE ####[facility] PATHOLOGY [address]LSQBJY[address] [place] [address], HEPATITIS B SURFACE ANTIBODY on 07-02-2018 ANTI-HBS < 3.1 Normal The [facility] Comment on above: Order Comment: Nonre active: Samples < 7.5 mIU/mLReactive: Samples >/= 10.0 mIU/mLThe accepted criteria for immunity to HBV is anti-HBs activity >/= 10 mIU/mL, as defined by the WHO International Reference Preparation. Performed By: #### A NTI-HBS, HBSAG, CORE ####[facility] PATHOLOGY QIGAFMZRTQ[address] [place] [address], HEPATITIS B SURFACE ANTIGENo n 07-02-2018 Body surface area Derived from formula Non-Reactive Normal Non-Reactive [facility] Comment on above: Performed By: #### A NTI-HBS, HBSAG, CORE ####S PATHOLOGY ETYPHFLCSH6650 [place], [place], HEPATITIS C ANTIBODYon 07-02 HCV Reactive Abnormal Nonreactive [facility] Comment on above: Performed By: #### H CV, HEP C QNT ####S PATHOLOGY SOUVFMXEFY8913 [place], [place], HEPATITIS C QUANT BY PCRon 0 07-02-2018 HEP C QNT (ND) Not Detected Normal Not Detected [facility] Comment on above: Order Comment: This test is performed by a quantitative polymerase chain reaction (PCR) method (Ampliprep/SARAY TaqMan test, v2.0, [employer] [place], [place]) that is intended [...] (PCR) method (Ampliprep/SARAY TaqMan test, v2.0, [employer] [place], [place]) that is intended to be used as an aid in the diagnosis of HCV infection (genotypes 1 to 6) and also as an aid in the management of HCV infected patients undergoing anti-viral therapy in conjunction with clinical and other laboratory markers of infection. Performed By: #### H CV, HEP C QNT ####[facility] PATH[facility] LVIVLJQARY6399 [place], [place], HIV1 HIV2 AGAB SCRNon 2017 HIV AG-AB Non-Reactive Normal Non-Reactive The [facility] Comment on above: Order Comment: HIV I nformation: ?[place] Rev. code 3701.243(E):This information has been disclosed [...] By: #### h iv1 hiv2 agab scrn ####[facility] PATHOLOGY [id number] [place], [place], HIV-1 AB Non-Reactive Normal Non-Reactive The [facility] Comment on above: Order Comment: HIV I nformation: ?[place] Rev. code 3701.243(E):This information has been disclosed [...] By: #### h iv1 hiv2 agab scrn ####[facility] PATHOLOGY [id number] [place], [place], HIV-1 P24 ANTIGEN Non-Reactive Normal Non-Reactive [facility] Comment on above: Order Comment: HIV I nformation: ?[place] Rev. code 3701.243(E):This information has been disclosed [...] h iv1 hiv2 agab scrn ####S PATHOLOGY VPUKMWQMQE3658 [place], [place], HIV-2 AB Non-Reactive Normal Non-Reactive [facility] Comment on above: Order Comment: HIV I nformation: ?[place] Rev. code 3701.243(E):This information has been disclosed [...] h iv1 hiv2 agab scrn ####S PATHOLOGY ZMMDSKKZDR7123 [place], [place], SYPHILIS WITH CONFIRMATIONon 07-02-2018 Reagin Ab RPR Ql (S) Non-Reactive Normal Non-Reactive The [facility] Comment on above: Order Comment: No se rological evidence of infection with T. pallidum.A nonreactive result does not exclude the possibility of exposure to or infection with T. pallidum. Antibodies may be at low or undetectable levels in incubating or early primary disease and in some clinical conditions. Performed By: #### s dao with confirmation ####S PATHOLOGY UVSFZJWMBL8603 [place], [place], SYPHILIS TOTAL (IGG/IGM) Non-Reactive Normal Non-Reactive The [facility] Comment on above: Order Comment: No se rological evidence of infection with T. pallidum.A nonreactive result does not exclude the possibility of exposure to or infection with T. pallidum. Antibodies may be at low or undetectable levels in incubating or early primary disease and in some clinical conditions. Performed By: #### s dao with confirmation ####S PATHOLOGY JIEXOMNWRD5399 [place], [place], DISCHARGE SUMMARYon 02-06-20 18 DISCHARGE SUMMARY [address] [address] DISCHARGE SUMMARYPATIENT NAME: AARON OLIVAREZ : 1960MED REC NO: [id number] ROOM: 0130ACCOUNT NO: [id number] ADMIT DATE: 01/29/2018PROVIDER: Elian Powelli DISCH DATE:HISTORY [...] . With this, he is admitted to [facility] from [place].PAST PSYCHIATRIC HISTORY: History of major depression and [...] patient is [facility]. [facility]ELIAN JOEURTID: 02/05/2018 9:02:31 [id number]#: [id number] Doc#: [id number]: Normal [facility] CBC with Diffon 01-30-2018 Abs. Basophil 0.00 k/uL Normal 0.0-0.2 [facility] Comment on above: Performed By: #### C P, LIPR, TSHX, CDP ####[facility] [place] [address] #### T3, T4 ####[facility] [place] [address] Abs.Neutrophil (Seg) 1.83 k/uL Normal 1.3-9.1 [facility] Comment on above: Performed By: #### C P, LIPR, TSHX, CDP ####[address] [address] #### T3, T4 ####[address] [address] Basophils/100 WBC Auto (Bld) 0 % Normal 0-2 [facility] Comment on above: Performed By: #### C P, LIPR, TSHX, CDP ####[address] [address] #### T3, T4 ####[address] [address] Blood morphology Normal Normal [facility] Comment on above: Result Comment: Perf ormed at [facility] [address] [place] [address] Performed By: #### C P, LIPR, TSHX, CDP ####[address] [address] #### T3, T4 ####[address] [address] Eosinophils 0.04 10*3/uL Normal 0.0-0.4 [facility] Comment on above: Performed By: #### C P, LIPR, TSHX, CDP ####[address] [address] #### T3, T4 ####[address] [address] Eosinophils/100 leukocytes 1 % Normal 0-4 [facility] Comment on above: Performed By: #### C P, LIPR, TSHX, CDP ####[address] [place] [address] #### T3, T4 ####[address] [address] Lymphocytes 1.87 10*3/uL Normal 1.0-4.8 [facility] Comment on above: Performed By: #### C P, LIPR, TSHX, CDP ####[address] [address] #### T3, T4 ####[address] [address] Lymphocytes/100 leukocytes 48 % High 24-44 [facility] Comment on above: Performed By: #### C P, LIPR, TSHX, CDP ####[address] [address] #### T3, T4 ####[address] [address] Monocytes 0.16 10*3/uL Normal 0.1-1.3 [facility] Comment on above: Performed By: #### C P, LIPR, TSHX, CDP ####[address] [address] #### T3, T4 ####[address] [address] Monocytes/100 leukocytes 4 % Normal 1-7 [facility] Comment on above: Performed By: #### C P, LIPR, TSHX, CDP ####[address] [address] #### T3, T4 ####[address] [address] Neutrophil (Seg) 47 % Normal 36-66 [facility] Comment on above: Performed By: #### C P, LIPR, TSHX, CDP ####[facility] [place] [address] #### T3, T4 ####[address] [address] Erythrocyte distribution width Auto Ratio (RBC) 13.8 % Normal 11.5-14.9 [facility] Comment on above: Performed By: #### C P, LIPR, TSHX, CDP ####[address] [address] #### T3, T4 ####[address] [address] Erythrocytes (RBC) 4.72 10*6/uL Normal 4.5-5.9 [facility] Comment on above: Performed By: #### C P, LIPR, TSHX, CDP ####[address] [address] #### T3, T4 ####[address] [address] Hematocrit (HCT) 42.2 % Normal 41-53 [facility] Comment on above: Performed By: #### C P, LIPR, TSHX, CDP ####[address] [address] #### T3, T4 ####[address] [address] Hemoglobin mass conc (Bld) 13.9 g/dL Normal 13.5-17.5 [facility] Comment on above: Performed By: #### C P, LIPR, TSHX, CDP ####[address] [address] #### T3, T4 ####[address] [place] [address] MCH 29.6 pg Normal 26-34 [facility] Comment on above: Performed By: #### C P, LIPR, TSHX, CDP ####[address] [address] #### T3, T4 ####[address] [address] MCHC mass conc (RBC) 33.0 g/dL Normal 31-37 [facility] Comment on above: Performed By: #### C P, LIPR, TSHX, CDP ####[address] [address] #### T3, T4 ####[address] [address] MCV 89.5 fL Normal 80-100 [facility] Comment on above: Performed By: #### C P, LIPR, TSHX, CDP ####[address] [address] #### T3, T4 ####[address] [address] Platelet mean volume (PMV) 7.3 fL Normal 6.0-12.0 [facility] Comment on above: Performed By: #### C P, LIPR, TSHX, CDP ####[address] [address] #### T3, T4 ####[address] [address] Platelets 198 10*3/uL Normal 150-450 [facility] Comment on above: Performed By: #### C P, LIPR, TSHX, CDP ####[address] [address] #### T3, T4 ####[address] [address] WBC (Leukocytes) 3.9 10*3/uL Normal 3.5-11.0 [facility] Comment on above: Performed By: #### C P, LIPR, TSHX, CDP ####[address] [address] #### T3, T4 ####[address] [address] Auto Diff Performed NOT REPORTED Normal [facility] Comment on above: Performed By: #### C P, LIPR, TSHX, CDP ####[address] [address] #### T3, T4 ####[address] [address] Erythrocyte morphology NOT REPORTED Normal [facility] Comment on above: Performed By: #### C P, LIPR, TSHX, CDP ####[address] [address] #### T3, T4 ####[address] [address] Erythrocytes (RBC) NOT REPORTED Normal [facility] Comment on above: Performed By: #### C P, LIPR, TSHX, CDP ####[address] [address] #### T3, T4 ####[address] [address] Granulocytes/100 WBC (Bld) NOT REPORTED Normal 0.00-0.30 [facility] Comment on above: Performed By: #### C P, LIPR, TSHX, CDP ####[address] [place] [address] #### T3, T4 ####[address] [place] [address] Immature granulocytes #/vol (Bld) NOT REPORTED Normal 0 [facility] Comment on above: Performed By: #### C P, LIPR, TSHX, CDP ####[address] [address] #### T3, T4 ####[address] [address] Platelets NOT REPORTED Normal [facility] Comment on above: Performed By: #### C P, LIPR, TSHX, CDP ####[address] [address] #### T3, T4 ####[address] [address] WBC Morphology NOT REPORTED Normal [facility] Comment on above: Performed By: #### C P, LIPR, TSHX, CDP ####[address] [address] #### T3, T4 ####[address] [address] Comp Metabolic Profon 2017 (cont.) Normal [facility] Comment on above: Result Comment: Aver age GFR for 50-59 years old: 93 mL/min/1.73sq mChronic Kidney Disease: <60 mL/min/1.73sq mKidney failure: <15 mL/min/1.73sq meGFR calculated using average adult body mass. Additional eGFR calculator available at:http://www.[employer]/multiple_crcl_2012.htmPerformed at [address] [address] Performed By: #### C P, LIPR, TSHX, CDP ####[facility] [facility] [place] [address] #### T3, T4 ####[address] [address] Alanine aminotransferase (ALT) 11 U/L Normal 5-41 [facility] Comment on above: Performed By: #### C P, LIPR, TSHX, CDP ####[facility] [place] [address] [place] [address] #### T3, T4 ####[address] [address] Albumin 3.6 g/dL Normal 3.5-5.2 [facility] [facility] Comment on above: Performed By: #### C P, LIPR, TSHX, CDP ####[address] [place] [address] #### T3, T4 ####[address] [address] Alkaline Phos 104 U/L Normal 40-129 [facility] Comment on above: Performed By: #### C P, LIPR, TSHX, CDP ####[address] [place] [address] #### T3, T4 ####[address] [address] Anion gap 7 mmol/L Low 9-17 [facility] Comment on above: Performed By: #### C P, LIPR, TSHX, CDP ####[address] [place] [address] #### T3, T4 ####[address] [address] Aspartate aminotransferase (AST) 13 U/L Normal <40 [facility] Comment on above: Performed By: #### C P, LIPR, TSHX, CDP ####[address] [address] #### T3, T4 ####[address] [address] Bilirubin Ql (U) 0.26 mg/dL Low 0.3-1.2 [facility] Comment on above: Performed By: #### C P, LIPR, TSHX, CDP ####[address] [address] #### T3, T4 ####[address] [address] Calcium 8.6 mg/dL Normal 8.6-10.4 [facility] Comment on above: Performed By: #### C P, LIPR, TSHX, CDP ####[address] [address] #### T3, T4 ####[address] [address] Chloride 106 mmol/L Normal 98-107 [facility] Comment on above: Performed By: #### C P, LIPR, TSHX, CDP ####[address] [address] #### T3, T4 ####[address] [place] [address] CO2 29 mmol/L Normal 20-31 [facility] Comment on above: Performed By: #### C P, LIPR, TSHX, CDP ####[address] [address] #### T3, T4 ####[address] [address] Creatinine 1.01 mg/dL Normal 0.70-1.20 [facility] Comment on above: Performed By: #### C P, LIPR, TSHX, CDP ####[facility] [place] [address] #### T3, T4 ####[address] [address] eGFR (non-black) mL/min/{1.73_m2} Normal >60 [facility] Comment on above: Performed By: #### C P, LIPR, TSHX, CDP ####[address] [address] #### T3, T4 ####[address] [address] Glucose mass conc 100 mg/dL High 70-99 [facility] Comment on above: Performed By: #### C P, LIPR, TSHX, CDP ####[address] [address] #### T3, T4 ####[address] [address] Potassium molar conc 4.1 mmol/L Normal 3.7-5.3 [facility] Comment on above: Performed By: #### C P, LIPR, TSHX, CDP ####[address] [address] #### T3, T4 ####[address] [address] Protein 5.9 g/dL Low 6.4-8.3 [facility] Comment on above: Performed By: #### C P, LIPR, TSHX, CDP ####[facility] [place] [address] #### T3, T4 ####[address] [place] [address] Sodium 142 mmol/L Normal 135-144 [facility] Comment on above: Performed By: #### C P, LIPR, TSHX, CDP ####[facility] [place] [address] #### T3, T4 ####[address] [address] Urea nitrogen 19 mg/dL Normal 6-20 [facility] Comment on above: Performed By: #### C P, LIPR, TSHX, CDP ####[address] [address] #### T3, T4 ####[address] [address] Albumin/Globulin Ratio NOT REPORTED Normal 1.0-2.5 [facility] Comment on above: Performed By: #### C P, LIPR, TSHX, CDP ####[address] [place] [address] #### T3, T4 ####[address] [place] [address] BUN/CRE Ratio NOT REPORTED Normal -20 [facility] Comment on above: Performed By: #### C P, LIPR, TSHX, CDP ####[address] [address] #### T3, T4 ####[address] [place] [address] Staging: NOT REPORTED Normal [facility] Comment on above: Performed By: #### C P, LIPR, TSHX, CDP ####[facility] [place] [address] #### T3, T4 ####[address] [address] Lipid Profileon 01-30-2018 Cholesterol 172 mg/dL Normal <200 [facility] Comment on above: Result Comment: Chol esterol Guidelines: <200 Desirable 200-240 Borderline >240 Undesirable Performed By: #### C P, LIPR, TSHX, CDP ####[address] [address] #### T3, T4 ####[address] [address] Cholesterol to HDL Ratio 3.4 {ratio} Normal <5 [facility] Comment on above: Performed By: #### C P, LIPR, TSHX, CDP ####[address] [address] #### T3, T4 ####[address] [address] HDL Cholesterol 50 mg/dL Normal >40 [facility] Comment on above: Result Comment: HDL Guidelines: <40 Undesirable 40-59 Borderline >59 Desirable Performed By: #### C P, LIPR, TSHX, CDP ####[address] [address] #### T3, T4 ####[address] [address] LDL Cholesterol 93 mg/dL Normal 0-130 [facility] Comment on above: Result Comment: LDL Guidelines: <100 Desirable 100-129 Near to/above Desirable 130-159 Borderline >159 UndesirableDirect (measured) LDL and calculated LDL are not interchangeable tests. Performed By: #### C P, LIPR, TSHX, CDP ####[facility] [place] [address] #### T3, T4 ####[address] [address] Triglyceride 146 mg/dL Normal <150 [facility] Comment on above: Result Comment: Trig lyceride Guidelines: <150 Desirable 150- 199 Borderline 200-499 High >499 Very high Based on AHA Guidelines for fasting triglyceride, August 2012.Performed at [address] [address] Performed By: #### C P, LIPR, TSHX, CDP ####[address] [place] [address] #### T3, T4 ####[address] [address] Cholesterol in VLDL mass conc NOT REPORTED Normal 12-12 [facility] Comment on above: Performed By: #### C P, LIPR, TSHX, CDP ####[address] [address] #### T3, T4 ####[address] [address] TSH w/reflex to FT4on 2017 Thyroid stimulating hormone (TSH) 1.17 m[IU]/L Normal 0.30-5.00 [facility] Comment on above: Result Comment: Perf ormed at [facility] [address] [place] [address] Performed By: #### C P, LIPR, TSHX, CDP ####[address] [place] [address] #### T3, T4 ####[address] [address] Thyroxine T4on 01-30-2018 Thyroxine (T4) 5.1 ug/dL Normal 4.5-12.0 [facility] Comment on above: Result Comment: Perf ormed at [address] [address] Performed By: #### C P, LIPR, TSHX, CDP ####[address] [address] #### T3, T4 ####[address] [address] Triiodothyronine T3on 2017 Triiodothyronine T3 103 ng/dL Normal 80-200 [facility] Comment on above: Result Comment: Perf ormed at [address] [address] Performed By: #### C P, LIPR, TSHX, CDP ####[address] [address] #### T3, T4 ####[address] [address] PSYCHIATRIC EVALUATIONon PSYCHIATRIC EVALUATION [address] [address] PSYCHIATRIC EVALUATIONPATIENT NAME: ARAON OLIVAREZ : 1960MED REC NO: [id number] ROOM: 0130ACCOUNT NO: [id number] ADMIT DATE: 01/29/2018PROVIDER: Elian IndurtiCOMPREHENSIVE PSYCHIATRIC EVALUATIONHISTORY OF PRESENTING ILLNESS AND REASON FOR CURRENT ADMISSION: Thepatient is a 57-year-old male, who is feeling depressed and sad. Apparently, his Suboxone was stolen yesterday by somebody. He got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 Attending Dr: Janae Jose MD Copies to: ~ Date of Service: 05/06/2024 Subjective Subjective Narrative: Patient voices no complaints at the time my evaluation. He is very interested in being discharged today as he can relax at home as opposed to being in the hospital. He knows he is in a hospital but does not know that he is at [facility] in [place]. He also knows it is 2023. Exam [...] MD Thanh Paris> 05/06/24 1016 [facility] Work Phone: 1(408) 545-678106-23-2024 Progress note Author Janae Jose [facility] May 05, 2024 1:27pm Note Date/Time May 05, 2024 1:22 pm [facility] [address] [place] [address] Hospitalist Progress Note Signed Patient: Aaron Olivarez MR#: [id number] : 1960 Acct:[id number] Age/Sex: 63 / M Adm Date: 4 Loc: Room: [address] [place] [address] Type: ADM IN Attending Dr: Janae Jose [...] down without significant elevation. Suspecting type II HI from hypoxia. Echocardiogram showing preserved ejection fraction with mild LVH. No wall motion abnormality seen. EKG negative for acute ischemic changes. Documented By: Janae Jose MD 05/05/24 1319 Signed By: <Electronically signed by Janae Jose MD> 05/05/24 1327 [facility] Work Phone: 1(303) 341-102006-23-2024 Progress note Author Víctor Agrawal [facility] May 05, 2024 11:29am Note Date/Time May 05, 2024 11:2 9am [facility] [address] [place] [address] Pulmonology Progress Note Signed Patient: Aaron Olivarez MR#: [id number] : 1960 Acct:[id number] Age/Sex: 63 / M Adm Date: 4 Loc: Room: [address] [place] [address] Type: ADM IN Attending Dr: Janae Jose [...] edema, no clubbing. 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 Objective [...] <Electronically signed by Víctor Agrawal MD> 05/05/24 1125 [facility] Work Phone: 1(149) 258-502806-22-2024 Progress note Author Janae Jose [facility] May 04, 2024 12:19pm Note Date/Time May 04, 2024 12:1 3pm [facility] [address] [place] [address] Hospitalist Progress Note Signed Patient: Aaron Olivarez MR#: [id number] : 1960 Acct:[id number] Age/Sex: 63 / M Adm Date: 4 Loc: Room: [address] [place] [address] Type: ADM IN Attending Dr: Janae Jose [...] down without significant elevation. Suspecting type II HI from hypoxia. Echocardiogram showing preserved ejection fraction with mild LVH. No wall motion abnormality seen. Negative for acute ischemic changes. Documented By: Janae Jose MD 05/04/241209 Signed By: <Electronically signed by Janae Jose MD> 05/04/24 1219 [facility] Work Phone: 1(578) 527-561406-22-2024 Progress note Author Víctor Agrawal [facility] May 04, 2024 12:03pm Note Date/Time May 04, 2024 11:5 4am [facility] [address] [place] [address] Pulmonology Progress Note Signed Patient: Aaron Olivarez MR#: [id number] : 1960 Acct:[id number] Age/Sex: 63 / M Adm Date: 4 Loc: 4C Room: [address] [place] [address] Type: ADM IN Attending Dr: Janae Jose [...] Musculoskeletal: No edema 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: No skin 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, does not interact or [...] signed by Víctor Agrawal MD> 05/04/24 1202 [facility] Work Phone: 1(867) 736-132906-21-2024 Progress note Author Víctor Agrawal [facility] May 03, 2024 1:57pm Note Date/Time May 03, 2024 1:57 pm [facility] [address] [place] [address] Pulmonology Progress Note Signed Patient: Aaron Olivarez MR#: [id number] : 1960 Acct:[id number] Age/Sex: 63 / M Adm Date: 4 Loc: Room: [address] [place] [address] Type: ADM IN Attending Dr: Janae Jose [...] Musculoskeletal: No edema 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 No focal deficits Objective Intake [...] signed by Víctor Agrawal MD> 05/03/24 1357 [facility] Work Phone: 1(925) 582-427806-21-2024 Progress note Author Janae Jose [facility] May 03, 2024 12:57pm Note Date/Time May 03, 2024 12:5 7pm [facility] [address] [place] [address] Hospitalist Progress Note Signed Patient: Aaron Olivarez MR#: [id number] : 1960 Acct:[id number] Age/Sex: 63 / M Adm Date: 4 Loc: Room: [address] [place] [address] Type: ADM IN Attending Dr: Janae Jose [...] down without significant elevation. Suspecting type II HI from hypoxia. Pending echocardiogram to assess LV function and wall motion. Will obtain twelve-lead EKG. Documented By: Janae Jose MD 05/03/24 5244 Signed By: <Electronically signed by Janae Jose MD> 05/03/24 1257 [facility] Work Phone: 1(502) [phone] Progress note Author Janae Jose [facility] May 02, 2024 1:49pm Note Date/Time May 02, 2024 1:49 pm [facility] [address] [place] [address] Event Note Signed Patient: Aaron Olivarez MR#: [id number] : 1960 Acct:[id number] Age/Sex: 63 / M Adm Date: 4 Loc: Room: [address] [place] [address] Type: ADM IN Attending Dr: Janae Jose [...] signed by Janae Jose MD> 05/02/24 1349 [facility] Work Phone: 1(561) 364-857006-20-2024 Consult note Author Víctor Agrawal [facility] May 02, 2024 1:47pm Note Date/Time May 02, 2024 1:42 pm [facility] [address] [place] [address] Pulmonology Consult Note Signed Patient: Aaron Olivarez MR#: [id number] : 1960 Acct:[id number] Age/Sex: 63 / M Adm Date: 4 Loc: 4C Room: [address] [place] [address] Type: ADM IN Attending Dr: Janae Jose [...] and history of hypertension was transferred from [place] [facility] directly into ICU. Apparently, patient was experiencing productive cough with thick yellow phlegm and increased shortness of breath prior to his presentation to [facility]. Patient was found by familylethargic and difficult to arouse, oxygen saturation was 70% on room air, venousblood gas showed pCO2 of 80 with pH of 7.32. Patient refused BiPAP. Chest CT angiogram reported negative for PE, showed right lower lobe consolidation consistent with pneumonia. 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 Results - Pulmonology [...] <Electronically signed by Víctor Agrawal MD> 05/02/24 0211 [facility] Work Phone: [phone] 398-776706-20-2024 History and physical note Author Magdy Douglass [facility] May 02, 2024 7:12am Note Date/Time May 02, 2024 7:11 am [facility] [address] [place] [address] Hospitalist H&P Signed Patient: Aaron Olivarez MR#: [id number] : 1960 Acct:[id number] Age/Sex: 63 / M Adm Date: 4 Loc: Room: [address] [place] [address] Type: ADM IN Attending Dr: Janae Jose MD Copies to: MD Sulaiman Ruggiero, DO Janae Jose MD~ HPI DATE OF EXAMINATION: 05/01/24 CHIEF COMPLAINT: cough, dyspnea, altered mental status HISTORY OF PRESENT ILLNESS: 63 year old man with history of HTN, COPD, tobacco abuse who presented to [facility] with the above complaints. Per the patient for 2-3 days prior to admission he was having a cough productiveof thick yellow sputum and increasing dyspnea with exertion. On the date of presentation family members went to see the patient and found that he was lethargic and difficult to arouse so he was brought to [facility] for evaluation. On arrival there pulse [...] negative except as noted in the [facility] Social History Smoking Status: Heavy [...] % (Auto) 7.8 % (.) 05/02/24 04:20 [place] % (Auto) 8.2 % (.) 05/02/24 04:20 Eos % (Auto) 0.0 % (.) 05/02/24 04:20 Baso % (Auto) 0.2 % (.) 05/02/24 04:20 Nucleat RBC Rel Count 0.2 /100 WBC (0-0.5) 05/02/24 04:20 Neut # (Auto) 6.3 x10E3/uL (1.8-7.7) 05/02/24 04:20 Lymph # (Auto) 0.6 x10E3/uL (1.00-4.8) L 05/02/24 04:20 [place] # (Auto) 0.6 x10E3/uL (0.0-0.8) 05/02/24 04:20 [...] signed by Magdy Douglass MD> 05/02/24 0712 [facility] Work Phone: Consult note Author Patricio Galaviz [facility] May 06, 2024 1:01pm Note Date/Time May 06, 2024 1:01 pm [facility] [address] [place] [address] Physiatry (Rehab) Consult Note Signed Patient: Aaron Olivarez MR#: [id number] : 1960 Acct:[id number] Age/Sex: 63 / M Adm Date: 4 Loc: Room: [address] [place] [address] Type: ADM IN Attending Dr: Kiko Maldonado [...] negative unless noted below or in HPI [facility] Medical History Heavy smoker Heroin use H/O ETOH abuse COPD (chronic obstructive pulmonary disease) Social History Smoking Status: Heavy tobacco smoker Social History Comments: Moved from [place] to [place] to live with son, Lamin. Meds Medications [...] chart, including current orders, allied health and sediment remediation consultant notes, labs/imaging and performed [place] elements of exam and I formulated the plan of care and facilitated the medical decision making. I completed a substantive portion of this encounter, the medical decision making portion of this note in its entirety, including Allied health note review, nursing note review, sediment remediation consultant note review, discussion with nursing and case management, and more than 50% of my time was spent on counseling and coordination of care, time spent 60 minutes Documented By: Patricio Galaviz MD 05/06/24 1251 Signed By: <Electronically signed by Patricio Galaviz MD> 05/06/24 1301 [facility] Work Phone: Consult note Author Julito Mosley [facility] Note Date/Time November 18, 2024 4: 27pm [facility] [address] [place] [address] Cardiology Consult Note Signed Patient: Aaron Olivarez MR#: [id number] : 1960 Acct:[id number] Age/Sex: 64 / M Adm Date: 5 Loc: Room: [address] [place] [address] Type: ADM INOo Attending Dr: Yamila Donald [...] negative unless noted below or in HPI [facility] Medical History Heavy smoker Heroin use H/O ETOH abuse COPD (chronic obstructive pulmonary disease) Social History Smoking Status: Unknown if ever smoked Substance Use Type: Marijuana, Heroin and Methamphetamine Social History Comments: Moved from [place] to [place] to live with son, Lamin. Meds Medications [...] x10E3/uL Lymph # (Auto) 1.4 (1.00-4.8) x10E3/uL [place] # (Auto) 0.6 (0.0-0.8) x10E3/uL Eos # [...] @ 70 1000 / 1000 mls/hr IV .[id number] CORBY Rx#: [id number] levETIRAcetam 500 mg In 105 / 105 Dextrose 5 % in Water 100 ml @ 420 mls/hr IV BID CORBY Rx#: [id number] Output: Urine 500 / 500 Other: # [...] signed by Julito Mosley MD> 11/18/24 1627 [facility] Work Phone: Consult note Author Neville Bush [facility] Note Date/Time November 18, 2024 5: 44pm [facility] [address] [place] [address] Neurology Consult Note Signed Patient: Aaron Olivarez MR#: [id number] : 1960 Acct:[id number] Age/Sex: 64 / M Adm Date: 5 Loc: Room: [address] [place] [address] Type: ADM IN Attending Dr: Yamila Donald MD Copies to: DO Sulaiman Mosquera DO Marwan Wassouf, MD~ HPI Consult Date: 11/18/24 Phlebotomy Manager: Neville Bush DO [facility] Medical History Heavy smoker Heroin use H/O ETOH abuse COPD (chronic obstructive pulmonary disease) Social History Smoking Status: Unknown if ever smoked Substance Use Type: Marijuana, Heroin and Methamphetamine Social History Comments: Moved from [place] to [place] to live with sonLamin. Meds Medications and [...] Dung Chakraborty M.D.11/17/2024 8:43 AM Dictation Location: [place] [address] Head CTA 11/17/24 08:25 IMPRESSION: No evidence of focal stenosis, aneurysmal dilatation, dissection or occlusion. No evidence of acute traumatic injury. The cervical spine and upper thoracic spine are grossly intact. Impression dictated by: Dung Chakraborty M.D.11/17/2024 8:59 AM Dictation Location: [place] [address] Chest X-Ray 11/17/24 12:57 IMPRESSION: No acute cardiopulmonary pathology. Impression dictated by: Dung Chakraborty M.D.11/17/2024 1:26 PM Dictation Location: [place] [address] Assessment/Plan (1) Seizure: Plan CONSULT REASON: Seizure, [...] <Electronically signed by Neville Bush DO> 11/18/24 9456 [facility] Work Phone: Evaluation note* Diagnosis [...] cute Tobacco abuse acute Uncontrolled hypertension ac [place] [facility] Work Phone: Progress note Author Yamila Donald [facility] Note Date/Time November 19, 2024 3: 10am [facility] [address] [place] [address] Hospitalist Progress Note Signed Patient: Aaron Olivarez MR#: [id number] : 1960 Acct:[id number] Age/Sex: 64 / M Adm Date: 5 Loc: Room: 0C7838-0 Type: ADM IN Attending Dr: Yamila Donald [...] Lactated Ringers IV 11/18/24 17:34 70 mls/hr .[id number] CORBY Administration Levetiracetam 500 mg/ Dextrose 105 [...] Plan Documented By: Yamila Donald MD 11/18/24 7165 Signed By: <Electronically signed by Yamila Donald MD> 11/19/24 0310 [facility] Work Phone: Proaipza note Author Neville Bush [facility] Note Date/Time November 19, 2024 6: 02pm [facility] [address] [place] [address] Neurology Progress Note Signed Patient: Aaron Olivarez MR#: [id number] : 1960 Acct:[id number] Age/Sex: 64 / M Adm Date: 5 Loc: Room: [address] [place] [address] Type: ADM IN Attending Dr: Yamila Donald [...] <Electronically signed by Neville Bush DO> 11/19/24 8101 [facility] Work Phone: Progress note Author Yamila Donald [facility] Note Date/Time November 20, 2024 3: 02am [facility] [address] [place] [address] Hospitalist Progress Note Signed Patient: Aaron Olivarez MR#: [id number] : 1960 Acct:[id number] Age/Sex: 64 / M Adm Date: 5 Loc: Room: [address] [place] [address] Type: ADM IN Attending Dr: Yamila Donald [...] signed by Yamila Donald MD> 11/20/24 0302 [facility] Work Phone: Progress note Author Yamila Donald [facility] Note Date/Time November 20, 2024 7: 21pm [facility] [address] [place] [address] Hospitalist Progress Note Signed Patient: Aaron Olivarez MR#: [id number] : 1960 Acct:[id number] Age/Sex: 64 / M Adm Date: 5 Loc: Room: [address] [place] [address] Type: ADM IN Attending Dr: Yamila Donald [...] signed by Yamila Donald MD> 11/20/24 1921 [facility] Work Phone: Summary Purpose Family History [...] content) DATE CREATED AUTHOR 05/01/2018 [facility] DATE CREATED AUTHOR AUTHOR'S ORGANIZ ATION 05/04/2018 [facility] DATE CREATED AUTHOR AUTHOR'S ORGANIZ ATION 05/07/2018 [facility] DATE CREATED AUTHOR AUTHOR'S ORGANIZ ATION 05/09/2018 [facility] DATE CREATED AUTHOR AUTHOR'S ORGANIZ ATION 07/04/2018 [facility] DATE CREATED AUTHOR AUTHOR'S ORGANIZ ATION 10/23/2018 [facility] DATE CREATED AUTHOR AUTHOR'S ORGANIZ ATION 11/28/2022 [facility] DATE CREATED AUTHOR AUTHOR'S ORGANIZ ATION 07/24/2024 [facility] DATE CREATED AUTHOR AUTHOR'S ORGANIZ ATION 11/24/2024 [facility] DATE CREATED AUTHOR AUTHOR'S ORGANIZ ATION 12/17/2024 [facility] Care Teams (unrecognized sec [...] 2024 End: November 21, 2024 Janie Amaro MICROBIOLOGY ANALYST-C Other Provider Active Sta rt: November 18, 2024 End: November 21, 2024 Alejandra Montenegro APRN-INTERNATIONAL MANAGER-C Other Provider Active Start: November 18, 2024 [...] Sta rt: November 18, 2024 Alejandra Montenegro APRN-INTERNATIONAL MANAGER-C Other Provider Active Start: November 18, 2024 [...] Sta rt: November 17, 2024 Alejandra Montenegro APRN-INTERNATIONAL MANAGER-C Other Provider Active Start: November 17, 2024 [...] BE BASED ON THE PRIMARY CLINICAL RECORDS. [facility] [employer] [facility]. provides no warranty or guarantee of the accuracy or completeness of information in this document.
--- NOTE | 2025-06-07 07:53 | ED_ITS ---
HPI HPI - General Adult General Chief complaint: Seizure Stated complaint: SEIZURE Time Seen by Provider: 06/07/25 07:32 Source: other Source information: EMS from nephew at home Mode of arrival: ambulance Limitations: altered mental status History of Present Illness HPI narrative: 64-year-old male presents to the emergency department for chief complaint of having had a seizure. Upon arrival he is postictal and was transported here by paramedics. He was transported from his home after family called after the patient had a seizure. He was hemodynamically stable en route to the hospital. In reviewing his electronic health record it does not appear that he has any history of heart disease. He does however have a history of seizures and significant noncompliance. He has been on Keppra in the past. I am unable to determine if he has been taking it recently or not. He has a history of substance abuse including methamphetamines. He is unable to provide us any history and initially no family is present. Related Data Home Medications ?Medication ?Instructions ?Recorded ?Confirmed No Known Home Medications 12/20/2404/13 Allergies Allergy/AdvReac Type Severity Reaction Status Date / Time No Known Drug Allergies Allergy Verified 04/01/24 10:45 Opioid HPI Opioid Management Most Recent Opioid Data: Last Pain Scale 4 04/01/24, 12:20 Last MAR Pain Assessment Today, 08:09 Ur Phencyclidine Scrn, (NEGATIVE) Negative Today, 07:52 Review of Systems ROS Narrative Not obtainable, postictal PFSH PFSH Social History Little interest or pleasure in doing things: not at all Feeling down, depressed, or hopeless: not at all Exam Narrative Exam Narrative: Nurses note and vital signs reviewed and patient is not hypoxic. General: The patient appears in no acute respiratory distress. His eyes are closed. He does not open his eyes to command. Skin: Warm, dry, no pallor noted. There is no rash noted. Head: Normocephalic, atraumatic Eye: Normal conjunctiva, no drainage, EOMI. PERRL Ears, Nose, Mouth, and Throat: oral mucosa is moist. Nares patent. Cardiovascular: Regular Rate and Rhythm, not tachycardic Respiratory: Patient is in no distress, no accessory muscle use, lungs are clear to auscultation, no wheezing, rales or rhonchi Back: non-tender GI: Soft and nondistended. No apparent tenderness Musculoskeletal: No deformity to his extremities Neurological: He is postictal. Does not follow commands. He is nonverbal Psychiatric: Cannot be assessed Constitutional Vital Signs, click to edit/add: Last Vital Signs Temp 100.7 F H 06/07/25 07:33 Pulse 89 06/07/25 08:10 Resp 17 06/07/25 08:10 BP 128/69 06/07/25 08:09 Pulse Ox 83 L 06/07/25 07:40 O2 Del Method Nasal Cannula 06/07/25 07:38 O2 Flow Rate 4 06/07/25 07:38 Course Vital Signs Vital signs: Vital Signs Temperature 100.7 F H 06/07/25 07:33 Pulse Rate 89 06/07/25 07:33 Respiratory Rate 20 06/07/25 07:33 Blood Pressure 189/116 H 06/07/25 07:33 Pulse Oximetry 80 L 06/07/25 07:33 Oxygen Delivery Method Room Air 06/07/25 07:33 Temperature 100.7 F H 06/07/25 07:33 Pulse Rate 89 06/07/25 08:10 Respiratory Rate 17 06/07/25 08:10 Blood Pressure 128/69 06/07/25 08:09 Pulse Oximetry 83 L 06/07/25 07:40 Oxygen Delivery Method Nasal Cannula 06/07/25 07:38 Oxygen Delivery Flow Rate 4 06/07/25 07:38 Medical Decision Making MDM Narrative Medical decision making narrative: STEMI is identified. He has ST elevation in leads II, III and aVF as well as V3 and V4. Reciprocal changes present as well. This is all new compared to EKG from April. I have discussed the case with Dr. Dallas as well as the hospitalist at [facility] and he will be transported there immediately by helicopter for emergent heart catheterization. There is no family member here to discuss the case. He has been hemodynamically stable and was given rectal Tylenol and rectal aspirin and IV heparin is ordered. Drug screen has come back positive for amphetamines, methamphetamine, buprenorphine, and oxycodone The patient still is postictal but is rocking his head from [id number] and is being given IV Valium for sedation for the helicopter. Differential Diagnosis Differential Diagnosis: STEMI, seizure, intracranial hemorrhage, substance abuse Lab Data Lab results reviewed: Yes I reviewed the patient's lab results Labs: Lab Results 06/07/25 06/07/25 Range/Units 07:45 07:52 WBC 5.8 (4.0-11.0) 10^3/uL RBC 5.34 (4.70-6.10) 10^6/uL Hgb 16.2 (14.0-18.0) g/dL Hct 49.9 (42.0-54.0) % MCV 93.4 (80.0-94.0) fL MCH 30.3 (25.9-34.0) pg MCHC 32.5 (29.9-35.2) g/dL RDW 14.6 (11.0-15.0) % Plt Count 285 (150-450) 10^3/uL MPV 9.1 L (9.5-13.5) fL Neut % (Auto) 72.9 (43.0-75.0) % Lymph % (Auto) 20.6 (20.5-60.0) % [place] % (Auto) 4.9 (1.7-12.0) % Eos % (Auto) 0.7 L (0.9-7.0) % Baso % (Auto) 0.7 (0.2-2.0) % Neut # (Auto) 4.2 (1.4-6.5) 10^3/uL Lymph # (Auto) 1.2 (1.2-3.8) 10^3/uL [place] # (Auto) 0.3 (0.3-0.8) 10^3/uL Eos # (Auto) 0.0 (0.0-0.7) 10^3/uL Baso # (Auto) 0.0 (0.0-0.1) 10^3/uL Abs Immat Gran (auto) 0.01 (0.00-0.03) 10^3/uL Imm/Tot Granulo (auto) 0.2 (0.0-0.5) % Sodium 138 (136-145) mmol/L Potassium 3.5 (3.5-5.1) mmol/L Chloride 97 L (98-107) mmol/L Carbon Dioxide 24.0 (21.0-32.0) mmol/L Anion Gap 20.5 BUN 19.0 H (7.0-18.0) mg/dL Creatinine 1.45 H (0.70-1.30) mg/dL Est GFR ( Amer) 59 L (>=60 mL/min/1.73m^2) Est GFR (Non-Af Amer) 49 L (>=60 mL/min/1.73m^2) BUN/Creatinine Ratio 13.1 Glucose 182 H (74-106) mg/dL Calcium 9.5 (8.5-10.1) mg/dL Total Bilirubin 1.1 H (0.2-1.0) mg/dL AST 31 (15-37) U/L ALT 33 (16-63) U/L Alkaline Phosphatase 124 H (46-116) U/L Total Protein 8.4 H (6.4-8.2) g/dL Albumin 4.5 (3.4-5.0) g/dL Globulin 3.9 g/dL Albumin/Globulin Ratio 1.2 Urine Color Lt. yellow (YELLOW) Urine Clarity Clear (CLEAR) Urine pH 8.0 (5.0-9.0) Ur Specific [place] 1.020 (1.005-1.025) Urine Protein >=300 A (NEG/TRACE) mg/dL Urine Glucose (UA) 100 A (NEGATIVE) mg/dL Urine Ketones Negative (NEGATIVE) mg/dL Urine Occult Blood Small A (NEGATIVE) Urine Nitrite Negative (NEGATIVE) Urine Bilirubin Negative (NEGATIVE) Urine Urobilinogen 0.2 (0.2-1.0) EU/dL Ur Leukocyte Esterase Negative (NEGATIVE) Urine RBC 2-5 A (0-2) #/HPF Urine WBC None seen (NONE SEEN) #/HPF Ur Squamous Epith Cells Rare (NONE/RARE) #/LPF Urine Crystals None seen (None Seen) #/HPF Urine Bacteria Trace A (NONE SEEN) #/HPF Urine Casts Seen A (NONE SEEN) #/LPF Hyaline Casts Rare Urine Mucus Trace A (NONE SEEN) Urine Sperm Seen Ur Culture Indicated? No Urine Opiates Screen Negative (NEGATIVE) Ur Buprenorphine Scrn Positive A (NEGATIVE) Ur Oxycodone Screen Positive A (NEGATIVE) Urine Methadone Screen Negative (NEGATIVE) Ur Barbiturates Screen Negative (NEGATIVE) U Tricyclic Antidepress Negative (NEGATIVE) Ur Phencyclidine Scrn Negative (NEGATIVE) Ur Amphetamines Screen Positive A (NEGATIVE) U Methamphetamines Scrn Positive A (NEGATIVE) U Benzodiazepines Scrn Negative (NEGATIVE) Urine Cocaine Screen Negative (NEGATIVE) U Cannabinoids Screen Negative (NEGATIVE) Imaging Data Chest x-ray: My impression: Chest x-ray my interpretation shows no acute findings. CT brain on my interpretation shows no acute finding. ECG Data Attestation: I personally reviewed and interpreted this ECG as follows: (EKG on my interpretation shows ST elevation in 2 3 and aVF as well as V3 and V4. There is ST depression in V5 and V6. This is all new compared to an EKG taken on May 01 of this year.) Critical Care Time Critical Care Time Critical Care Time: Yes Total Critical Care Time: 50 Attestation: Due to the high probability of sudden and clinically significant deterioration in the patient's condition he/she required the highest level of my preparedness to intervene urgently I provided critical care time including documentation time, medication orders and management, reevaluation, vital sign assessment, ordering and reviewing of lab tests, ordering and reviewing of x-ray studies, and admission orders. Aggregate critical care time is 50 minutes including only time during which I was engaged in work directly related to his/her care and did not include time spent treating other patients simultaneously. Discharge Plan Discharge Chief Complaint: Seizure Clinical Impression: ST elevation (STEMI) myocardial infarction, Seizure, Polysubstance abuse Patient Disposition: [facility] Time of Disposition Decision: 08:07 Discharge Location: [facility] Condition: Critical Mode of Transportation: [employer]
[2025-06-07 07:59] LABS: Hematocrit 49.9 % (42.0-54.0); Hemoglobin 16.2 g/dL (14.0-18.0); Immature Granulocytes Abs Auto 0.01 10^3/uL (0.00-0.03); Immature Granulocytes Pct Auto 0.2 % (0.0-0.5); Lymphocytes Absolute Auto 1.2 10^3/uL (1.2-3.8); Mean Corpuscular HGB Conc 32.5 g/dL (29.9-35.2); Mean Corpuscular Hemoglobin 30.3 pg (25.9-34.0); Mean Corpuscular Volume 93.4 fL (80.0-94.0); Platelet Count 285 10^3/uL (150-450); Red Blood Count 5.34 10^6/uL (4.70-6.10); White Blood Count 5.8 10^3/uL (4.0-11.0)
[2025-06-07 08:02] LABS: Glucose Urine UA 100 mg/dL (NEGATIVE)
--- NOTE | 2025-06-07 08:04 | XR_ITS ---
The [place] [id number] Patient Name: AARON OLIVAREZ MRN: [id number] date: 1960 Sex: M Assigned Patient Location: ED.MAIN Current Patient Location: ED.MAIN Accession/Order Number: [id number] Exam Date: 06/07/2025 08:31 Report Date: 06/07/2025 08:33 At the request of: ELEANOR BOYD MD Procedure: XR chest 1V Single view chest: CLINICAL HISTORY: STEMI COMPARISON: Chest performed earlier today FINDINGS: The heart is normal in size. The lungs are clear. The pulmonary vasculature is normal. Mediastinum and hilar regions are unremarkable. No pleural effusions are seen. Visualized bones are intact. XR/XR chest 1V IMPRESSION: NEGATIVE CHEST. Impression dictated by: Patricio Velázquez Jr., D.O. 06/07/2025 8:33 AM Dictation Location: [place] [address] Electronically authenticated by: [id number] Date: 06/07/2025 08:33
[2025-06-07] MEDS: ASPIRIN 300 MG SUPP.RECT PR (08:09)
[2025-06-07] MEDS: ACETAMINOPHEN 650 MG RECTAL SUPPOSITORY PR (08:09)
[2025-06-07 08:14] LABS: Alanine Aminotransferase 33 U/L (16-63); Albumin Globulin Ratio 1.2; Albumin Level 4.5 g/dL (3.4-5.0); Alkaline Phosphatase 124 U/L (46-116); Anion Gap 20.5; Aspartate Amino Transferase 31 U/L (15-37); Blood Urea Nitrogen 19.0 mg/dL (7.0-18.0); Calcium 9.5 mg/dL (8.5-10.1); Carbon Dioxide 24.0 mmol/L (21.0-32.0); Chloride 97 mmol/L (98-107); Estimated GFR (African America 59 (>=60 mL/min/1.73m^2); Estimated GFR (Non-African Ame 49 (>=60 mL/min/1.73m^2); Globulin 3.9 g/dL; Glucose 182 mg/dL (74-106); Potassium 3.5 mmol/L (3.5-5.1); Sodium 138 mmol/L (136-145); Total Protein 8.4 g/dL (6.4-8.2)
[2025-06-07 08:15] LABS: Cast Seen? SEEN #/LPF (NONE SEEN); Crystals Seen? None Seen #/HPF (None Seen)
[2025-06-07 08:16] LABS: Cannabinoid Screen Urine NEGATIVE (NEGATIVE); Methamphetamines Screen Urine POSITIVE (NEGATIVE); Tricyclic Antidepressant Urine NEGATIVE (NEGATIVE); Urine Culture Indicated NO
[2025-06-07] MEDS: DIAZEPAM 10 MG/2 ML SYRINGE 2.5 MG IV (08:27)
[2025-06-07] MEDS: HEPARIN SODIUM,PORCINE/D5W 25,000 UNIT/500 ML IV.SOLN 17 UNIT IV (08:27)
[2025-06-07] MEDS: HEPARIN SODIUM (PORCINE) 5,000 UNIT/ML VIAL 4000 UNIT IV (08:27)
[2025-06-07 08:32] LABS: INR 1.08; Partial Thromboplastin Time 24.0 sec (22.3-36.2); Prothrombin Time 11.4 sec (9.0-11.6)
== END 2025-06-07 08:51 | disposition short-term general hospital (02) ==
PROVIDERS: Emergency Provider Emergency Medicine
DX: I21.3 ST elevation (STEMI) myocardial infarction of unspecified site (principal); R56.9 Unspecified convulsions; F19.10 Other psychoactive substance abuse, uncomplicated; R50.9 Fever, unspecified
CPT/HCPCS: 36415; 70450; 71045; 80048; 80076; 80307; 80320; 81001; 84484; 85025; 85610; 85730; 87040; 93005; 96365; 96375; 99291; J1644; J1953; J3360

== ENCOUNTER 2025-07-15 14:10 | Observation (INO) | payer MEDICARE, SELFPAY ==
--- OUTSIDE RECORDS SUMMARY | 2014-10-14 05:15 | XMS_ITS | Continuity of Care Document ---
[facility] Organization [facility] Address [address] [place] [address] Phone Care Team Providers Care Rn Lpn Lvn Name Role Phone Garcia Ochoa MD Unavailable Unavailable Allergies, Adverse Reactions, Alerts Substance Reaction Status Criticality No Known Allergies Active No Inform ation Medications Medication Instructions Dosage Effective Dates (start - stop) Status Comments Synthroid 125 mcg tablet take 1 tablet by oral route every day - Active naproxen sodium 220 mg capsule Take two tablets by mouth three times per day - Active Procedures Procedure Date FAC Office/outpatient visit, [facility], detail ed Advance Directives Directive Yes / No Effective Date File Name No Information Encounters Encounter Description Practice Location Reason(s) For Visit Diagnoses Date Provider Providers Copied on Encounter FAC Office/outpat ient visit, [facility], detailed [facility], [facility] [place], [place], [id number], tel:[phone] (chief complaint) LBP 4 Gabriela Zelaya. [address] [place] [address], [facility], [place]. tel:[phone] [facility], [address] [place] [address], [id number], tel:[phone] AUB [facility] [employer] No Information 4 Gabriela Zelaya. [address] [place] [address], [facility], [place]. tel:[phone] Family History Family Member Type Diagnosis Age At Onset No Information Payers Payer name Insurance type Covered constitution party ID Authoriza tion(s) Medicare Part B [id number] Social History Type Description Quantity Date Captured Comments Alcohol Use Details No Caffeine Use Details coffee 3 cups per day Tobacco Use Status Smoking Status Current every day smoker 2013 Sex Male Vital Signs Date / Time: Height Weight BMI Pulse Rate Blood Pressure Temperature Respiratory Rate Body Surface Area Head Circumference Head Circ. Percentile Wt./[place]. Percentile BMI percentile Pulse Ox Inhaled Ox 9:36 AM 73.00 in 104.326 kg (230.00 lbs) 30.3 4 kg/m eter (2) 76 /min 137/89 mm[Hg] Chief Complaint And Reason For Visit From encounter dated '10/14/2014 09:15'. lumbar spine pain (chief complaint) Reason For Referral Reason For Referral No Information History Of Present Illness Encounter Date Complaint History Of Prese nt Illness lumbar spine pain Functional Status Date Functional Assessmen t No Information Instructions Date Instruction Additional Infor mation No Information Assessments Type Assessment Date assessment LBP Patient Care Teams Name Effective Dates (start - stop) Status Members No Information
--- OUTSIDE RECORDS SUMMARY | 2014-10-14 05:15 | XMS_ITS | Continuity of Care Document ---
Author Organization [facility] Address [address] [place] [address] Phone Care Team Providers Care Breaker Operator Name Role Phone Garcia Ochoa MD Unavailable [...] Active Procedures Procedure Date FAC Office/outpatient visit, [facility], detail ed Advance Directives Directive Yes / No Effective Date File Name No Information Encounters Encounter Description Practice Location Reason(s) For Visit Diagnoses Date Provider Providers Copied on Encounter FAC Office/outpat ient visit, [facility], detailed [facility] [place] [facility], [facility] [place], [place], [id number], tel:[phone] (chief complaint) LBP 2 4 Gabriela Zelaya. [address] [place] [address], [facility], [place]. tel:[phone] [facility], [address] [place] [address], [id number], tel:[phone] AUB [place] [employer] No Information 4 Gabriela Zelaya. [address] [place] [address], [facility], [place]. tel:[phone] Family History Family Member Type Diagnosis Age At Onset No Information Payers Payer name Insurance type Covered green party ID Authoriza tion(s) Medicare Part B [id number] Social History Type Description Quantity Date Captured [...]
--- OUTSIDE RECORDS SUMMARY | 2024-07-23 06:30 | XMS_ITS | Encounter Summary ---
Author Name [facility] [place] Organization [facility] ([place]) Address [address] [place] [id number] Care Team Providers Care Resume Writer Name Role Phone SEAN TRACY Primary Care Provider UnavailLINDA Krishna Unavailable Unavailable JEAN CLAUDE THAO Primary Care Provider UnavailTANESHA De Leon Unavailable Unavailable YULIA SEGURA Unavailable Unavailable ASHLEY FRIED Unavailable Unavailable EVI HOU Unavailable Unavailable YENI ARGUELLO Unavailable Unavailable Insurance Providers: All historical and current Section Date Range: From patient's date of to the date document was created. This section includes the names of all active insurance providers for the patient. Insurance Provider Type of Coverage Plan Name Start of Policy Coverage End of Policy Coverage Group Number Member ID Insurance Provider's Telephone Number Policy Lemon's Name Patient's Relationship to Policy Lemon [facility] (WN) MEDICARE ADVANTAGE [facility] March 13, 2017 [id number] HEDY OLIVAREZ PATIENT MEDICARE (WN) MEDICARE (M) PART B March 13, 2014 PART B [id number] HEDY OLIVAREZ PATIENT MEDICARE (WNR) MEDICARE (M) PART B March 13, 2014 PART B [id number] HEDY OLIVAREZ PATIENT MEDICARE (WN) MEDICARE (M) PART B March 13, 2014 PART B [id number] HEDY OLIVAREZ PATIENT MEDICARE (WNR) MEDICARE (M) PART B March 13, 2014 PART B [id number] HEDY OLIVAREZ PATIENT MEDICARE (WNR) MEDICARE (M) PART B March 13, 2014 PART B [id number] HEDY OLIVAREZ PATIENT MEDICARE (WNR) MEDICARE (M) PART B March 13, 2014 PART B [id number] HEDY OLIVAREZ PATIENT MEDICARE (WNR) MEDICARE (M) PART B March 13, 2014 PART B [id number] HEDY OLIVAREZ PATIENT MEDICARE (WNR) MEDICARE (M) PART B March 13, 2014 PART B [id number] HEDY OLIVAREZ PATIENT MEDICARE (WNR) MEDICARE (M) PART B March 13, 2014 PART B [id number] HEDY OLIVAREZ PATIENT MEDICARE (WNR) MEDICARE (M) PART B Jan 11, 2003 PART B [id number] HEDY OLIVAREZ PATIENT MEDICARE (WNR) MEDICARE (M) PART B Jan 11, 2003 PART B [id number] HEDY OLIVAREZ PATIENT MEDICARE (WNR) MEDICARE (M) PART B Jan 11, 2003 PART B [id number] HEDY OLIVAREZ PATIENT MEDICARE (WNR) MEDICARE (M) PART B Jan 11, 2003 PART B [id number] HEDY OLIVAREZ PATIENT MEDICARE (WNR) MEDICARE (M) PART A Nov 13, 2000 PART A [id number] HEDY OLIVAREZ PATIENT MEDICARE (WNR) MEDICARE (M) PART A Nov 13, 2000 PART A [id number] HEDY OLIVAREZ PATIENT MEDICARE (WNR) MEDICARE (M) PART A Nov 13, 2000 PART A [id number] HEDY OLIVAREZ PATIENT MEDICARE (WNR) MEDICARE (M) PART A Nov 13, 2000 PART A [id number] HDEY OLIVAREZ PATIENT MEDICARE (WNR) MEDICARE (M) PART A Jul 14, 1995 PART A [id number] HEDY OLIVAREZ PATIENT MEDICARE (WNR) MEDICARE (M) PART A Jul 14, 1995 PART A [id number] HEDY OLIVAREZ PATIENT MEDICARE (WNR) MEDICARE (M) PART A Jul 14, 1995 PART A [id number] HEDY OLIVAREZ PATIENT MEDICARE (WNR) MEDICARE (M) PART A Jul 14, 1995 PART A [id number] HEDY OLIVAREZ PATIENT MEDICARE (WNR) MEDICARE (M) PART A Jul 14, 1995 PART A [id number] HEDY OLIVAREZ PATIENT MEDICARE (WNR) MEDICARE (M) PART B Jul 14, 1995 PART B [id number] HEDY OLIVAREZ PATIENT MEDICARE (WNR) MEDICARE (M) PART B Jul 14, 1995 PART B [id number] HEDY OLIVAREZ PATIENT MEDICARE (WNR) MEDICARE (M) PART A Jul 14, 1995 PART A [id number] HEDY OLIVAREZ PATIENT MEDICARE (WNR) MEDICARE (M) PART A Jul 14, 1995 PART A [id number] HEDY OLIVAREZ PATIENT MEDICARE (WNR) MEDICARE (M) PART A Jul 14, 1995 PART A [id number] HEDY OLIVAREZ PATIENT MEDICARE (WNR) MEDICARE (M) PART A Jul 14, 1995 PART A [id number] HEDY OLIVAREZ PATIENT MEDICARE (WNR) MEDICARE (M) PART A Jul 14, 1995 PART A [id number] HEDY OLIVAREZ PATIENT MEDICARE (WNR) MEDICARE (M) PART A Jul 14, 1995 PART A [id number] HEDY OLIVAREZ PATIENT MEDICARE PART D (WNR) MEDICARE (M) PART D Oct 13, 2022 PART D [id number] HEDY OLIVAREZ PATIENT [facility] MCR (WNR) MEDICARE ADVANTAGE MCR (WNR) Oct 13, 2022 [id number] HEDY OLIVAREZ PATIENT Selected Encounter This section includes the information on record at [place] for the Encounter. Date/Time Encounter Type Encounter Description Reason Pro vider Source Jul 23, 2024 10:30 AM Outpatient Encounter SUBSTANCE USE DISORDER IND IHE Encounter Template Text not used by [place] Plan of Treatment: Future Appointments (+ 6 months) and Future Tests (+/- 45 days) The Plan of Treatment section includes future care activities for the patient [facility] [place] [facility] This section includes future appointments and future orders which are active, pending or scheduled. Future Appointments This section includes appointments that were scheduled to occur 6 months from the date of the Encounter, up to a maximum of 20 appointments. The data comes from all [place] treatment facilities. Appointment Date/Time Appointment Type Appointme nt Facility Name Jul 26, 2024 10:30 AM AMBULATORY - MEDICINE [facility] Aug 06, 2024 11:00 AM AMBULATORY - PSYCHIATRY [facility] Aug 20, 2024 10:00 AM AMBULATORY - PSYCHIATRY [facility] Sep 16, 2024 09:00 AM AMBULATORY - MEDICINE [facility] Sep 17, 2024 11:00 AM AMBULATORY - PSYCHIATRY [facility] Oct 14, 2024 11:30 AM AMBULATORY - PSYCHIATRY [facility] Oct 29, 2024 08:30 AM AMBULATORY - PSYCHIATRY [facility] Nov 04, 2024 02:00 PM AMBULATORY - PSYCHIATRY [facility] Nov 15, 2024 01:00 PM AMBULATORY - MEDICINE [facility] Nov 19, 2024 08:00 AM AMBULATORY - PSYCHIATRY [facility] Nov 26, 2024 10:00 AM AMBULATORY - PSYCHIATRY [facility] Dec 24, 2024 11:00 AM AMBULATORY - PSYCHIATRY [facility] Dec 31, 2024 09:00 AM AMBULATORY - PSYCHIATRY [facility] Dec 31, 2024 02:30 PM AMBULATORY - PSYCHIATRY [facility] Jan 07, 2025 10:00 AM AMBULATORY - PSYCHIATRY [facility] Lab Results: +/- 30 days of the encounter This section includes the Chemistry and Hematology Lab Results on record with [place] for the patient. Radiology Reports and Pathology Reports are provided separately, in subsequent sections. Lab Results This section contains the Chemistry/Hematology Results that were resulted 30 days before or 30 daysafter the date of the Encounter. Date/Time Source Result Type Result - Unit Interpretation Reference Range Specimen Type Comment Aug 06, 2024 10:14 AM [facility] GCMS SCREEN,U/M URINE,RA NDOM Specimen Type: URINE,RANDOM Comment: ~For Test: GCMS SCREEN,U/M ~Opiate metabolites Urine drug screen is POSITIVE. The following drugs were detected: Methamphetamine Amphetamine Gabapentin Naproxen Nicotine Caffeine This gas chromatography screen of urine will detect a variety of therapeutic and potentially abused drugs including antidepressants, anticonvulsants, sedatives, opiates, and pain medications. This test was developed and its performance characteristics validated by the laboratory. It has not been cleared nor approved by the U.S. Food and Drug Administration. Ordering Provider: MARCIA CARTY Report Released Date/Time: Aug 06, 2024 09:11 AM Reporting Lab: [address] [phone] Performing Lab: [facility] Dept of Pathology [facility] [id number] GCMS SCREEN,U/M comment Aug 06, 2024 10:14 AM [facility] TOX SCREEN ([facility]) URINE,RANDOM Specimen Type : URINE,RANDOM Comment: ~For Test: GCMS SCREEN,U/M ~Opiate metabolites Ordering Provider: MARCIA CARTY Report Released Date/Time: Aug 06, 2024 09:11 AM Reporting Lab: [address] [id number] Performing Lab: [address] [phone] BENZODIAZEPINES Not Detected Not Detecte d CANNABINOIDS,URINE DETECTED H Not Detected OPIATES,URINE Not Detected Not Detected AMPHETAMINES DETECTED H Not Detected BARBITURATES Not Detected Not Detected COCAINE,URINE Not Detected Not Detected CREATININE,VERIFY 181 mg/dL URINE METHADONE Not Detected Not Detecte d URINE OXYCODONE Not Detected Not Detecte d URINE BUPRENORHINE DETECTED H Not Detected URINE FENTANYL Not Detected Not Detected Jun 28, 2024 10:46 AM [facility] ETHYL GLUCURONIDE,URINE ([facility]) URINE,RANDOM Specim en Type: URINE,RANDOM Comment: ~For Test: GCMS SCREEN,U/M ~suboxone Ethyl glucuronide interpretation: Negative Urine drug screen is POSITIVE. The following drugs were detected: Methamphetamine Amphetamine Oxycodone Ibuprofen Nicotine Cotinine Caffeine NOTE - Saboxone is not routinely seen on GCMS This gas chromatography of urine will detect a variety of therapeutic and potentially abused drugs including antidepressants, anticonvulsants, sedatives, opiates, and pain medications. This test was developed and its performance characteristics validated by the laboratory. It has not been cleared nor approved by the U.S. Food and Drug Administration. Ordering Provider: MARINA STONE Report Released Date/Time: Jun 28, 2024 10:39 AM Reporting Lab: [address] [phone] Performing Lab: [facility] Dept of Pathology [facility] [phone] ETHYL GLUCURONIDE,URINE ([facility]) <500 ng/mL 0-499 Jun 28, 2024 10:46 AM [facility] GCMS SCREEN,U/M URINE,RANDOM Specimen Type: URINE,RANDOM Comment: ~For Test: GCMS SCREEN,U/M ~suboxone Ethyl glucuronide interpretation: Negative Urine drug screen is POSITIVE. The following drugs were detected: Methamphetamine Amphetamine Oxycodone Ibuprofen Nicotine Cotinine Caffeine NOTE - Saboxone is not routinely seen on GCMS This gas chromatography of urine will detect a variety of therapeutic and potentially abused drugs including antidepressants, anticonvulsants, sedatives, opiates, and pain medications. This test was developed and its performance characteristics validated by the laboratory. It has not been cleared nor approved by the U.S. Food and Drug Administration. Ordering Provider: MARINA STONE Report Released Date/Time: Jun 28, 2024 10:39 AM Reporting Lab: [address] [phone] Performing Lab: [facility] Dept of Pathology [facility] [phone] GCMS SCREEN,U/M comment Jun 28, 2024 10:46 AM [facility] TOX SCREEN ([facility]) URINE,RANDOM Specimen Type : URINE,RANDOM Comment: ~For Test: GCMS SCREEN,U/M ~suboxone Ordering Provider: MARINA STONE Report Released Date/Time: Jun 28, 2024 10:39 AM Reporting Lab: [facility] [address] [facility] [phone] Performing Lab: [facility] [address] [facility] [address] BENZODIAZEPINES Not Detected Not Detecte d CANNABINOIDS,URINE DETECTED H Not Detected OPIATES,URINE Not Detected Not Detected AMPHETAMINES DETECTED H Not Detected BARBITURATES Not Detected Not Detected COCAINE,URINE Not Detected Not Detected CREATININE,VERIFY 111 mg/dL URINE METHADONE Not Detected Not Detecte d URINE OXYCODONE DETECTED H Not Detected URINE BUPRENORHINE DETECTED H Not Detected URINE FENTANYL Not Detected Not Detected Social History: Smoking Status (Most current) and Tobacco Use (All prior to encounter date) This section includes the most current, and the historical, smoking and tobacco- related health factors from the [place] facility where the Encounter took place. Current Smoking Status This section includes the most current smoking, or tobacco-related health factor, from the [place] facility where the Encounter took place. Date/Time Current Smoking Status Comment Rom ity Feb 07, 2023 11:00 AM VA-TOBACCO USER EVERY DAY [facility] Tobacco Use History This section includes a history of the smoking, or tobacco-related health factors, that were collected on or before the date of the Encounter. The data comes from the [place] facility where the Encounter took place. Date/Time Smoking Status/Tobacco Use Comment F acility Feb 07, 2023 11:00 AM VA-TOBACCO USE ADVICE [facility] Feb 07, 2023 11:00 AM VA-TOBACCO USE BANKING CENTER MANAGER YES [facility] Feb 07, 2023 11:00 AM VA-TOBACCO USE MED NOTIFY PROVIDER [facility] Feb 07, 2023 11:00 AM VA-TOBACCO USE WI 30 MIN OF WAKEUP [facility] Feb 07, 2023 11:00 AM VA-TOBACCO USER EVERY DAY [facility] Feb 16, 2022 01:00 PM VA-TOBACCO USE 30 YEARS OR MORE [facility] Feb 16, 2022 01:00 PM VA-TOBACCO USE ADVICE [facility] Feb 16, 2022 01:00 PM VA-TOBACCO USE BANKING CENTER MANAGER NO [facility] Feb 16, 2022 01:00 PM VA-TOBACCO USE MED NO [facility] Feb 16, 2022 01:00 PM VA-TOBACCO USE WI 30 MIN OF WAKEUP [facility] Feb 16, 2022 01:00 PM VA-TOBACCO USER EVERY DAY [facility] Jun 21, 2020 04:12 AM CURRENT TOBACCO USER [facility] Jun 21, 2020 04:12 AM TOBACCO OFFERRED S TOP SMOKING CLINIC [facility] Jun 09, 2020 01:24 PM CURRENT TOBACCO USER [facility] Jun 09, 2020 01:24 PM TOBACCO OFFERRED S TOP SMOKING CLINIC [facility] Jul 24, 2019 01:11 PM VA-TOBACCO USE 30 YEARS OR MORE [facility] Jul 24, 2019 01:11 PM VA-TOBACCO USE ADVICE [facility] Jul 24, 2019 01:11 PM VA-TOBACCO USE BANKING CENTER MANAGER NO [facility] Jul 24, 2019 01:11 PM VA-TOBACCO USE MED NO [facility] Jul 24, 2019 01:11 PM VA-TOBACCO USE WI 30 MIN OF [facility] Jul 24, 2019 01:11 PM VA-TOBACCO USER EVERY DAY [facility] March 23, 2018 09:34 AM SMOKING CESSATION NO [facility] March 16, 2018 08:14 PM CURRENT TOBACCO USER [facility] March 16, 2018 08:14 PM SMOKER - OFFERRED MEDS (PROVIDER) [facility] March 16, 2018 08:14 PM TOBACCO OFFERRED S TOP SMOKING CLINIC [facility] Advance Directives: All historical and current Section Date Range: From patient's date of to the date document was created. This section includes ALL of a patient's completed or amended [place] Advance and Rescinded Directives. The entries below indicate that a directive exists for the patient, but an actual copy is not included with this document. The data comes from all [facility]. Date Advance Directives Provider Source Nov 28, 2017 ADVANCE DIRECTIVE DISCUSSION JOSE ALEJANDRO BULLARD [facility] March 16, 2015 ADVANCE DIRECTIVE CASEY FELIX [place] Jun 30, 2014 ADVANCE DIRECTIVE DISCUSSION IVONE [facility] Jan 21, 2003 ADVANCE DIRECTIVE DISCUSSION TJ MERCADO Jan 07, 2003 ADVANCE DIRECTIVE DISCUSSION SANCHEZ BROWN Encounter Notes: All associated encounter notes This section contains the clinical notes associated to the Encounter. Date/Time Encounter Note(s) Provider Source Jul 23, 2024 10:30 AM NO SHOW NOTE: LOCAL TITLE: PSYCHIATRY NO SHOW - CANCEL - RESCHEDULE STANDARD TITLE: NO SHOW NOTE DATE OF NOTE: JUL 23, 2024@10:30 ENTRY DATE: JUL 23, 2024@14:15:47 AUTHOR: MARCIA CARTY EXP COSIGNER: URGENCY: STATUS: COMPLETED PSYCHIATRY NO SHOW - CANCEL - RESCHEDULE Has ADDENDA Note Title: PSYCHIATRY NO SHOW - CANCEL - RESCHEDULE No Show Reason for Cancellation: Per [facility] Notice 2019-09(2), For mental health appointments, (inclusive of consults, return to clinic orders, and failure to report (no-show)), the minimum scheduling effort for scheduling/rescheduling totals of four attempts; three documented contact attempts by telephone on separate days, followed by a letter. does NOT have a HRS-PRF, and did not attend scheduled appointment on Jul@10:30. was NOT reachable by phone with the following results: Called only available phone number, no answer, unable to leave a message mailbox is full . Recommend sending letter. [place] will also be called by clinic MSAs, letter will be sent if patient cannot be reached by phone /aren/ MARCIA CARTY MD Staff Physician, [facility] Signed: 07/23/2024 14:16 Receipt Acknowledged By: 07/26/2024 08:43 /aren/ CECIL RESENDIZ [facility] 07/26/2024 ADDENDUM STATUS: COMPLETED Attempted to contact mailbox is full unable to leave message /aren/ CECIL RESENDIZ [facility] Signed: 07/26/2024 08:44 MARCIA CARTY [facility]
--- OUTSIDE RECORDS SUMMARY | 2024-07-26 06:30 | XMS_ITS | Encounter Summary ---
Author Name [facility] ([place] Organization [facility] ([place]) Address [address] [place] [id number] Care Team Providers Care Firm Administrator Name Role Phone SEAN TRACY Primary Care [...] Lemon's Name Patient's Relationship to Policy Lemon [facility] (WNR) MEDICARE ADVANTAGE [facility] March 13, 2017 [id number] HEDY OLIVAREZ PATIENT MEDICARE (WNR) MEDICARE (M) PART B March 13, 2014 PART B [id number] HEDY OLIVAREZ PATIENT MEDICARE (WNR) MEDICARE (M) PART B March 13, 2014 PART B [id number] HEDY OLIVAREZ PATIENT MEDICARE (WNR) MEDICARE (M) PART B March 13, 2014 PART B [id number] HEDY OLIVAREZ PATIENT MEDICARE (WNR) MEDICARE (M) PART B March 13, 2014 PART B [id number] HEDY OLIVAREZ PATIENT MEDICARE (WNR) MEDICARE (M) PART B March 13, 2014 PART B [id number] HEDY OLIVAREZ PATIENT MEDICARE (WNR) MEDICARE (M) PART B March 13, 2014 PART B [id number] HEDY OLIVAREZ PATIENT MEDICARE (WNR) MEDICARE (M) PART B March 13, 2014 PART B [id number] HEDY OLIVAREZ PATIENT MEDICARE (WNR) MEDICARE (M) PART B March 13, 2014 PART B [id number] HEDY OLIVAREZ PATIENT MEDICARE (WNR) MEDICARE (M) PART B March 13, 2014 PART B [id number] HEDY OLIVAREZ PATIENT MEDICARE (WNR) MEDICARE (M) PART B Jan 11, 2003 PART B [id number] HEDY OLIVAREZ PATIENT MEDICARE (WNR) MEDICARE (M) PART B Jan 11, 2003 PART B [id number] HEDY OLIVAREZ PATIENT MEDICARE (WNR) MEDICARE (M) PART B Jan 11, 2003 PART B [id number] HEDY OLIVAREZ PATIENT MEDICARE (WNR) MEDICARE (M) PART B Jan 11, 2003 PART B [id number] HEDY OLIVAREZ PATIENT MEDICARE (WNR) MEDICARE (M) PART A Nov 13, 2000 PART A [id number] HEDY OLIVAREZ PATIENT MEDICARE (WNR) MEDICARE (M) PART A Nov 13, 2000 PART A [id number] HEDY OLIVAREZ PATIENT MEDICARE (WNR) MEDICARE (M) PART A Nov 13, 2000 PART A [id number] HEYD OLIVAREZ PATIENT MEDICARE (WNR) MEDICARE (M) PART A Nov 13, 2000 PART A [id number] HEDY OLIVAREZ PATIENT MEDICARE (WNR) MEDICARE (M) PART A Jul 14, 1995 PART A [id number] HEDY OLIVAREZ PATIENT MEDICARE (WNR) MEDICARE (M) PART A Jul 14, 1995 PART A [id number] HEDY OLIVAREZ PATIENT MEDICARE (WNR) MEDICARE (M) PART A Jul 14, 1995 PART A [id number] HEDY OLIVAREZ PATIENT MEDICARE (WNR) MEDICARE (M) PART B Jul 14, 1995 PART B [id number] HEDY OLIVAREZ PATIENT MEDICARE (WNR) MEDICARE (M) PART B Jul 14, 1995 PART B [id number] HEDY OLIVAREZ PATIENT MEDICARE (WNR) MEDICARE (M) PART A Jul 14, 1995 PART A [id number] HEDY OLIVAREZ PATIENT MEDICARE (WNR) MEDICARE (M) PART A Jul 14, 1995 PART A [id number] HEDY OLIVAREZ PATIENT MEDICARE (WNR) MEDICARE (M) PART A Jul 14, 1995 PART A [id number] HEDY OLIVAREZ PATIENT MEDICARE (WNR) MEDICARE (M) PART A Jul 14, 1995 PART A [id number] HEDY OLIVAREZ PATIENT MEDICARE (WNR) MEDICARE (M) PART A Jul 14, 1995 PART A [id number] HEDY OLIVAREZ PATIENT MEDICARE (WNR) MEDICARE (M) PART A Jul 14, 1995 PART A [id number] HEDY OLIVAREZ PATIENT MEDICARE (WNR) MEDICARE (M) PART A Jul 14, 1995 PART A [id number] HEDY OLIVAREZ PATIENT MEDICARE (WNR) MEDICARE (M) PART A Jul 14, 1995 PART A [id number] HEDY OLIVAREZ PATIENT MEDICARE PART D (WNR) MEDICARE (M) PART D Oct 13, 2022 PART D [id number] HEDY OLIVAREZ PATIENT [facility] (WNR) MEDICARE ADVANTAGE MCR (WNR) Oct 13, 2022 [id number] HEDY OLIVAREZ PATIENT Selected Encounter This section includes the information on record at [place] for the Encounter. Date/Time Encounter Type Encounter Description Reason Pro vider Source Jul 26, 2024 10:30 AM Outpatient Encounter PRIMARY CARE/MEDICINE IHE Encounter Template Text not used by [place] Plan of Treatment: Future Appointments (+ 6 months) and Future Tests (+/- 45 days) The Plan of Treatment section includes future care activities for the [facility] This section includes future appointments and future orders which are active, pending or scheduled. Future Appointments This section includes appointments that were scheduled to occur 6 months from the date of the Encounter, up to a maximum of 20 appointments. The data comes from all [place] treatment facilities. Appointment Date/Time Appointment Type Appointme nt Facility Name Aug 06, 2024 11:00 AM AMBULATORY - PSYCHIATRY [facility] Aug 20, 2024 10:00 AM AMBULATORY - PSYCHIATRY [facility] Sep 16, 2024 09:00 AM AMBULATORY - MEDICINE [facility] Sep 17, 2024 11:00 AM AMBULATORY - PSYCHIATRY [facility] Oct 14, 2024 11:30 AM AMBULATORY - PSYCHIATRY [facility] Oct 29, 2024 08:30 AM AMBULATORY - PSYCHIATRY [facility] Nov 04, 2024 02:00 PM AMBULATORY - PSYCHIATRY [facility] Nov 15, 2024 01:00 PM AMBULATORY - MEDICINE [facility] Nov 19, 2024 08:00 AM AMBULATORY - PS[facility]CHIATRY [facility] Nov 26, 2024 10:00 AM AMBULATORY - PSYCHIATRY [facility] Dec 24, 2024 11:00 AM AMBULATORY - PSYCHIATRY [facility] Dec 31, 2024 09:00 AM AMBULATORY - PSYCHIATRY [facility] Dec 31, 2024 02:30 PM AMBULATORY - PSYCHIATRY [facility] Jan 07, 2025 10:00 AM AMBULATORY - PSYCHIATRY [facility] Lab Results: +/- 30 days of the encounter This section includes the Chemistry and Hematology Lab Results on record with [place] for the patient. Radiology Reports and Pathology Reports are provided separately, in subsequent sections. Lab Results This section contains the Chemistry/Hematology Results that were resulted 30 days before or 30 daysafter the date of the Encounter. Date/Time Source Result Type Result - Unit Interpretation Reference Range Specimen Type Comment Aug 06, 2024 10:14 AM [facility] GCMS SCREEN,U/M URINE,RA NDOM Specimen Type: URINE,RANDOM [...] Aug 06, 2024 09:11 AM Reporting Lab: [address] [address] Performing Lab: [facility] Dept of Pathology [facility] [id number] GCMS SCREEN,U/M comment Aug 06, 2024 10:14 AM [facility] TOX SCREEN ([facility]) URINE,RANDOM Specimen Type : URINE,RANDOM Comment: ~For Test: GCMS SCREEN,U/M ~Opiate metabolites Ordering Provider: MARCIA CARTY Report Released Date/Time: Aug 06, 2024 09:11 AM Reporting Lab: [address] [address] Performing Lab: [place] [id number] BENZODIAZEPINES Not Detected Not Detecte d CANNABINOIDS,URINE [...] Not Detected Jun 28, 2024 10:46 AM [facility] ETHYL GLUCURONIDE,URINE ([facility]) URINE,RANDOM Specim en [...] Jun 28, 2024 10:39 AM Reporting Lab: [address] [address] Performing Lab: [facility] Dept of Pathology [facility] [address] ETHYL GLUCURONIDE,URINE ([facility]) <500 ng/mL 0-499 Jun 28, 2024 10:46 AM [facility] GCMS SCREEN,U/M URINE,RANDOM Specimen Type: URINE,RANDOM Comment: [...] Jun 28, 2024 10:39 AM Reporting Lab: [address] [address] Performing Lab: [facility] Dept of Pathology [facility] [address] GCMS SCREEN,U/M comment Jun 28, 2024 10:46 AM [facility] TOX SCREEN ([facility]) URINE,RANDOM Specimen Type : URINE,RANDOM Comment: ~For Test: GCMS SCREEN,U/M ~suboxone Ordering Provider: MARINA STONE Report Released Date/Time: Jun 28, 2024 10:39 AM Reporting Lab: [address] [place] [address] Performing Lab: [place] [id number] [facility] [address] BENZODIAZEPINES Not Detected Not Detecte d CANNABINOIDS,URINE [...] and tobacco- related health factors from the [place] facility where the Encounter took place. Current Smoking Status This section includes the most current smoking, or tobacco-related health factor, from the [place] facility where the Encounter took place. Date/Time Current Smoking Status Comment Rom ity Feb 07, 2023 11:00 AM VA-TOBACCO USER EVERY DAY [facility] Tobacco Use History This section includes a history of the smoking, or tobacco-related health factors, that were collected on or before the date of the Encounter. The data comes from the [place] facility where the Encounter took place. 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 [facility] Feb 07, 2023 11:00 AM VA-TOBACCO USE MED NOTIFY PROVIDER [facility] Feb 07, 2023 11:00 AM VA-TOBACCO USE [place] 30 MIN OF WAKEUP [facility] Feb 07, 2023 11:00 AM VA-TOBACCO USER EVERY DAY [facility] Feb 16, 2022 01:00 PM VA-TOBACCO USE 30 YEARS OR MORE [facility] Feb 16, 2022 01:00 PM VA-TOBACCO USE ADVICE [facility] Feb 16, 2022 01:00 PM 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 [facility] Feb 16, 2022 01:00 PM VA-TOBACCO USE MED NO [facility] Feb 16, 2022 01:00 PM VA-TOBACCO USE WI 30 MIN OF WAKEUP [facility] Feb 16, 2022 01:00 PM VA-TOBACCO USER EVERY DAY [facility] Jun 21, 2020 04:12 AM CURRENT TOBACCO USER [facility] Jun 21, 2020 04:12 AM TOBACCO OFFERRED S TOP SMOKING CLINIC [facility] Jun 09, 2020 01:24 PM CURRENT TOBACCO USER [facility] Jun 09, 2020 01:24 PM TOBACCO OFFERRED S TOP SMOKING CLINIC [facility] Jul 24, 2019 01:11 PM VA-TOBACCO USE 30 YEARS OR MORE [facility] Jul 24, 2019 01:11 PM VA-TOBACCO USE ADVICE [facility] Jul 24, 2019 01:11 PM 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 [facility] Jul 24, 2019 01:11 PM VA-TOBACCO USE MED NO [facility] Jul 24, 2019 01:11 PM VA-TOBACCO USE WI 30 MIN OF WAKEUP [facility] Jul 24, 2019 01:11 PM VA-TOBACCO USER EVERY DAY [facility] March 23, 2018 09:34 AM SMOKING CESSATION NO [facility] March 16, 2018 08:14 PM CURRENT TOBACCO USER [facility] March 16, 2018 08:14 PM SMOKER - OFFERRED MEDS (PROVIDER) [facility] March 16, 2018 08:14 PM TOBACCO OFFERRED S TOP SMOKING CLINIC [facility] Advance Directives: All historical and current Section Date Range: From patient's date of to the date document was created. This section includes ALL of a patient's completed or amended [place] Advance and Rescinded Directives. The entries below indicate that a directive exists for the patient, but an actual copy is not included with this document. The data comes from all [facility]. Date Advance Directives Provider Source Nov 28, 2017 ADVANCE DIRECTIVE DISCUSSION JOSE ALEJANDRO BULLARD [facility] March 16, 2015 ADVANCE DIRECTIVE CASEY FELIX [facility] Jun 30, 2014 ADVANCE DIRECTIVE DISCUSSION IVONE [facility] Jan 21, 2003 ADVANCE DIRECTIVE DISCUSSION TJ MERCADO Jan 07, 2003 ADVANCE DIRECTIVE DISCUSSION SANCHEZ BROWN Encounter Notes: All associated encounter notes This section contains the clinical notes associated to the Encounter. Date/Time Encounter Note(s) Provider Source Jul 26, 2024 05:08 PM ADMINISTRATIVE NOT E: LOCAL TITLE: ADMINISTRATIVE CONTINUITY STANDARD TITLE: ADMINISTRATIVE NOTE DATE OF NOTE: JUL 26, 2024@17:08 ENTRY DATE: JUL 26, 2024@17:08:39 AUTHOR: HEDY OLIVEROS EXP COSIGNER: URGENCY: STATUS: COMPLETED [facility] [address] [facility] [address] JUL 26, 2024 AARON OLIVAREZ [address] [place] [address] NOTICE OF APPOINTMENT NOT COMPLETED AT [place] This is a notice that the following appointment was not attended by you: Clinic and location: [facility] ADORNO Date of appointment that was not completed: 07/26/2024 Your appointment will not be rescheduled unless a new referral is sent by your primary care provider. Please contact your primary care provider to arrange a new referral if you need to have the appointment rescheduled. If you have further questions, please call the following number: (Mon - Fri 8:30AM to 4:00PM) [phone] ext [phone] This does not change your eligibility for care through the [place]. Every effort will be made to provide you with excellent care. TRAVEL PAY RECIPIENTS Please note: Individuals eligible for travel pay will be paid an amount calculated for the [place] hospital or outpatient clinic closest to their home that could provide the same service. Begin using [employer] to better manage your health care (and refill your prescriptions online) at www.[place]health.[place]. If you have already addressed this issue please disregard this letter. Thank you. /aren/ HEDY NASH Signed: 07/26/2024 17:09 HEDY OLIVEROS [facility]
--- OUTSIDE RECORDS SUMMARY | 2024-08-06 07:00 | XMS_ITS | Encounter Summary ---
Author Name [facility] ([place]) Organization [facility] ([place]) Address [address] [place] [id number] Care Team Providers Care Card Table Attendant Name Role Phone SEAN TRACY Primary Care [...] Lemon's Name Patient's Relationship to Policy Lemon [facility] ([facility]) MEDICARE ADVANTAGE [facility] ([facility]) March 13, 2017 [id number] HEDY TRUJILLO PATIENT MEDICARE (WNR) MEDICARE (M) PART B March 13, 2014 PART B [id number] HEDY TRUJILLO PATIENT MEDICARE (WNR) MEDICARE (M) PART B March 13, 2014 PART B [id number] HEDY TRUJILLO PATIENT MEDICARE (WNR) MEDICARE (M) PART B March 13, 2014 PART B [id number] HEDY TRUJILLO PATIENT MEDICARE (WNR) MEDICARE (M) PART B March 13, 2014 PART B [id number] HEDY TRUJILLO PATIENT MEDICARE (WNR) MEDICARE (M) PART B March 13, 2014 PART B [id number] HEDY TRUJILLO PATIENT MEDICARE (WNR) MEDICARE (M) PART B March 13, 2014 PART B [id number] HEDY TRUJILLO PATIENT MEDICARE (WNR) MEDICARE (M) PART B March 13, 2014 PART B [id number] HEDY TRUJILLO PATIENT MEDICARE (WNR) MEDICARE (M) PART B March 13, 2014 PART B [id number] HEDY TRUJILLO PATIENT MEDICARE (WNR) MEDICARE (M) PART B March 13, 2014 PART B [id number] HEDY TRUJILLO PATIENT MEDICARE (WNR) MEDICARE (M) PART B Jan 11, 2003 PART B [id number] HEDY TRUJILLO PATIENT MEDICARE (WNR) MEDICARE (M) PART B Jan 11, 2003 PART B [id number] HEDY TRUJILLO PATIENT MEDICARE (WNR) MEDICARE (M) PART B Jan 11, 2003 PART B [id number] HEDY TRUJILLO PATIENT MEDICARE (WNR) MEDICARE (M) PART B Jan 11, 2003 PART B [id number] HEDY TRUJILLO PATIENT MEDICARE (WNR) MEDICARE (M) PART A Nov 13, 2000 PART A [id number] HEDY TRUJILLO PATIENT MEDICARE (WNR) MEDICARE (M) PART A Nov 13, 2000 PART A [id number] HEDY TRUJILLO PATIENT MEDICARE (WNR) MEDICARE (M) PART A Nov 13, 2000 PART A [id number] HEDY TRUJILLO PATIENT MEDICARE (WNR) MEDICARE (M) PART A Nov 13, 2000 PART A [id number] HEDY TRUJILLO PATIENT MEDICARE (WNR) MEDICARE (M) PART A Jul 14, 1995 PART A [id number] HEDY TRUJILLO PATIENT MEDICARE (WNR) MEDICARE (M) PART A Jul 14, 1995 PART A [id number] HEDY TRUJILLO PATIENT MEDICARE (WNR) MEDICARE (M) PART A Jul 14, 1995 PART A [id number] HEDY TRUJILLO PATIENT MEDICARE (WNR) MEDICARE (M) PART B Jul 14, 1995 PART B [id number] HEDY TRUJILLO PATIENT MEDICARE (WNR) MEDICARE (M) PART B Jul 14, 1995 PART B [id number] HEDY TRUJILLO PATIENT MEDICARE (WNR) MEDICARE (M) PART A Jul 14, 1995 PART A [id number] HEDY TRUJILLO PATIENT MEDICARE (WNR) MEDICARE (M) PART A Jul 14, 1995 PART A [id number] HEDY TRUJILLO PATIENT MEDICARE (WNR) MEDICARE (M) PART A Jul 14, 1995 PART A [id number] HEDY TRUJILLO PATIENT MEDICARE (WNR) MEDICARE (M) PART A Jul 14, 1995 PART A [id number] HEDY TRUJILLO PATIENT MEDICARE (WNR) MEDICARE (M) PART A Jul 14, 1995 PART A [id number] HEDY TRUJILLO PATIENT MEDICARE (WNR) MEDICARE (M) PART A Jul 14, 1995 PART A [id number] HEDY TRUJILLO PATIENT MEDICARE (WNR) MEDICARE (M) PART A Jul 14, 1995 PART A [id number] HEDY TRUJILLO PATIENT MEDICARE (WNR) MEDICARE (M) PART A Jul 14, 1995 PART A [id number] HEDY TRUJILLO PATIENT MEDICARE PART D (WNR) MEDICARE (M) PART D Oct 13, 2022 PART D [id number] HEDY TRUJILLO PATIENT [facility] MCR (WNR) MEDICARE ADVANTAGE MCR (WNR) Oct 13, 2022 [id number] HEDY TRUJILLO PATIENT Selected Encounter This section includes the information on record at [place] for the Encounter. Date/Time Encounter Type Encounter Description Reason Provider Source Aug 06, 2024 11:00 AM OFFICE O/P EST MOD 30 MIN SUBSTANCE USE DISORDER IND ICD-10-CM F11.21 Opioid dependence, in remission ALEJANDRO CARTY [facility] Encounter Template Text not used by MS Assessments - Encounter Diagnoses This section includes the primary and secondary diagnoses documented for the Encounter. Date/Time Primary/Secondary Diagnosis Diagnosis Name Provider Source Aug 06, 2024 10:03 AM PRIMARY Opioid dependence, in remission ALEJANDRO CARTY [facility] Aug 06, 2024 10:03 AM SECONDARY Other stimulant dependence, uncomplicated ALEJANDRO CARTY [facility] Plan of Treatment: Future Appointments (+ 6 months) and Future Tests (+/- 45 days) The Plan of Treatment section includes future care activities for the patient [facility]. This section includes future appointments and future orders which are active, pending or scheduled. Future Appointments This section includes appointments that were scheduled to occur 6 months from the date of the Encounter, up to a maximum of 20 appointments. The data comes from all MS treatment facilities. Appointment Date/Time Appointment Type Appointme nt Facility Name Aug 20, 2024 10:00 AM AMBULATORY - PSYCHIATRY [facility] Sep 16, 2024 09:00 AM AMBULATORY - MEDICINE [facility] Sep 17, 2024 11:00 AM AMBULATORY - PSYCHIATRY [facility] Oct 14, 2024 11:30 AM AMBULATORY - PSYCHIATRY [facility] Oct 29, 2024 08:30 AM AMBULATORY - PSYCHIATRY [facility] Nov 04, 2024 02:00 PM AMBULATORY - PSYCHIATRY [facility] Nov 15, 2024 01:00 PM AMBULATORY - MEDICINE [facility] Nov 19, 2024 08:00 AM AMBULATORY - PSYCHIATRY [facility] Nov 26, 2024 10:00 AM AMBULATORY - PSYCHIATRY [facility] Dec 24, 2024 11:00 AM AMBULATORY - PSYCHIATRY [facility] Dec 31, 2024 09:00 AM AMBULATORY - PSYCHIATRY [facility] Dec 31, 2024 02:30 PM AMBULATORY - PSYCHIATRY [facility] Jan 07, 2025 10:00 AM AMBULATORY - PSYCHIATRY [facility] Jan 28, 2025 10:00 AM AMBULATORY - PSYCHIATRY [facility] Jan 28, 2025 11:50 AM AMBULATORY - MEDICINE [facility] Active, Pending, and Scheduled Orders This section includes a listing of several types of active, pending, and scheduled orders, including clinic medications orders, diagnostic test orders, procedure orders and consult orders; where the start date of the order is 45 days before the date of the Encounter or 45 days after the date of theEncounter. The data comes from all MS treatment facilities. Test Date/Time Test Type Test Details Facility Name Sep 16, 2024 12:00 AM Laboratory - Chemi stry Order OCCULT BLOOD,FIT X1 SCREEN STOOL FECES SP [facility] Lab Results: +/- 30 days of the encounter This section includes the Chemistry and Hematology Lab Results on record with MS for the patient. Radiology Reports and Pathology Reports are provided separately, in subsequent sections. Lab Results This section contains the Chemistry/Hematology Results that were resulted 30 days before or 30 daysafter the date of the Encounter. Date/Time Source Result Type Result - Unit Interpretation Reference Range Specimen Type Comment Aug 06, 2024 10:14 AM [facility] GCMS SCREEN,U/M URINE,RA NDOM Specimen Type: URINE,RANDOM [...] U.S. Food and Drug Administration. Ordering Provider: ALEJANDRO CARTY Report Released Date/Time: Aug 06, 2024 09:11 AM Reporting Lab: [place] [id number] [facility] [id number] Performing Lab: [facility] Dept of Pathology [facility] [id number] GCMS SCREEN,U/M comment Aug 06, 2024 10:14 AM [facility] TOX SCREEN ([facility]) URINE,RANDOM Specimen Type : URINE,RANDOM Comment: ~For Test: GCMS SCREEN,U/M ~Opiate metabolites Ordering Provider: ALEJANDRO CARTY Report Released Date/Time: Aug 06, 2024 09:11 AM Reporting Lab: [address] [id number] Performing Lab: [address] [address] BENZODIAZEPINES Not Detected Not Detecte d CANNABINOIDS,URINE [...] and tobacco- related health factors from the MS facility where the Encounter took place. Current Smoking Status This section includes the most current smoking, or tobacco-related health factor, from the MS facility where the Encounter took place. Date/Time Current Smoking Status Comment Rom pérez Feb 07, 2023 11:00 AM VA-TOBACCO USER EVERY DAY [facility] Tobacco Use History This section includes a history of the smoking, or tobacco-related health factors, that were collected on or before the date of the Encounter. The data comes from the MS facility where the Encounter took place. Date/Time Smoking Status/Tobacco Use Comment F acility Feb 07, 2023 11:00 AM VA-TOBACCO USE ADVICE [facility] Feb 07, 2023 11:00 AM VA-TOBACCO USE MATTE CUTTER YES [facility] Feb 07, 2023 11:00 AM VA-TOBACCO USE MED NOTIFY PROVIDER [facility] Feb 07, 2023 11:00 AM VA-TOBACCO USE WI 30 MIN OF WAKEUP [facility] Feb 07, 2023 11:00 AM VA-TOBACCO USER EVERY DAY [facility] Feb 16, 2022 01:00 PM VA-TOBACCO USE 30 YEARS OR MORE [facility] Feb 16, 2022 01:00 PM VA-TOBACCO USE ADVICE [facility] Feb 16, 2022 01:00 PM VA-TOBACCO USE MATTE CUTTER NO [facility] Feb 16, 2022 01:00 PM VA-TOBACCO USE MED NO [facility] Feb 16, 2022 01:00 PM VA-TOBACCO USE [place] 30 MIN OF WAKEUP [facility] Feb 16, 2022 01:00 PM VA-TOBACCO USER EVERY DAY [facility] Jun 21, 2020 04:12 AM CURRENT TOBACCO USER [facility] Jun 21, 2020 04:12 AM TOBACCO OFFERRED S TOP SMOKING CLINIC [facility] Jun 09, 2020 01:24 PM CURRENT TOBACCO USER [facility] Jun 09, 2020 01:24 PM TOBACCO OFFERRED S TOP SMOKING CLINIC [facility] Jul 24, 2019 01:11 PM VA-TOBACCO USE 30 YEARS OR MORE [facility] Jul 24, 2019 01:11 PM VA-TOBACCO USE ADVICE [facility] Jul 24, 2019 01:11 PM VA-TOBACCO USE MATTE CUTTER NO [facility] Jul 24, 2019 01:11 PM VA-TOBACCO USE MED NO [facility] Jul 24, 2019 01:11 PM VA-TOBACCO USE [place] 30 MIN OF WAKEUP [facility] Jul 24, 2019 01:11 PM VA-TOBACCO USER EVERY DAY [facility] March 23, 2018 09:34 AM SMOKING CESSATION NO [facility] March 16, 2018 08:14 PM CURRENT TOBACCO USER [facility] March 16, 2018 08:14 PM SMOKER - OFFERRED MEDS (PROVIDER) [facility] March 16, 2018 08:14 PM TOBACCO OFFERRED S TOP SMOKING CLINIC [facility] Advance Directives: All historical and current Section Date Range: From patient's date of to the date document was created. This section includes ALL of a patient's completed or amended [place] Advance and Rescinded Directives. The entries below indicate that a directive exists for the patient, but an actual copy is not included with this document. The data comes from all [facility]. Date Advance Directives Provider Source Nov 28, 2017 ADVANCE DIRECTIVE DISCUSSION JOSE ALEJANDRO BULLARD [facility] March 16, 2015 ADVANCE DIRECTIVE CASEY FELIX [facility] Jun 30, 2014 ADVANCE DIRECTIVE DISCUSSION IVONE TOLEDO [facility] Jan 21, 2003 ADVANCE DIRECTIVE DISCUSSION CURTTJ HARRIS CESAR ALEJO Jan 07, 2003 ADVANCE DIRECTIVE DISCUSSION SANCHEZ BROWN Encounter Notes: All associated encounter notes This section contains the clinical notes associated to the Encounter. Date/Time Encounter Note(s) Provider Source Aug 20, 2024 09:25 AM ACCOUNTING OF DISC LOSURES NOTE: LOCAL TITLE: STATE PRESCRIPTION DRUG MONITORING PROGRAM STANDARD TITLE: ACCOUNTING OF DISCLOSURES NOTE DATE OF NOTE: AUG 20, 2024@09:25:41 ENTRY DATE: AUG 20, 2024@09:25:41 AUTHOR: ALEJANDRO CARTY EXP COSIGNER: URGENCY: STATUS: COMPLETED This PDMP query was submitted by Alejandro Carty MD. The clinical justification for this PDMP query is to review controlled substances prescribed outside of the MS, and any additional information that may become available, as an important component of standard clinical care, and in accordance with [facility] policy. Patient information was shared with the PDMP Appriss Mcin[place]. No prescription(s) for controlled substances outside the [place] were found in the last 90 days. /aren/ ALEJANDRO CARTY MD Staff Physician, [facility] Signed: 08/20/2024 09:25 ALEJANDRO CARTY [facility] Aug 12, 2024 08:56 AM LETTERS: LOCAL TITLE: TEST RESULTS PATIENT LETTER (MAILED TO PATIENT) STANDARD TITLE: LETTERS DATE OF NOTE: AUG 12, 2024@08:56 ENTRY DATE: AUG 12, 2024@08:56:24 AUTHOR: ALEJANDRO CARTY EXP COSIGNER: URGENCY: STATUS: COMPLETED [facility] [address] [facility] [address] AUG 12, 2024 AARON TRUJILLO [facility] [place] [address] Dear Mr. Aaron Trujillo : I would like to update you on your recent lab results: GCMS SCREEN,U/M URINE,RANDOM SP ~For Test: GCMS SCREEN,U/M ~Opiate metabolites #[id number] Collection time: Aug 06, 2024@10:14 Test Name Result Units Range --------- ------ ----- ----- AMPHETAMINES DETECTED H Ref: Not Detected BARBITURATES Not Detected Ref: Not Detected BENZODIAZEPINES Not Detected Ref: Not Detected CANNABINOIDS,URINE DETECTED H Ref: Not Detected COCAINE,URINE Not Detected Ref: Not Detected OPIATES,URINE Not Detected Ref: Not Detected URINE METHADONE Not Detected Ref: Not Detected URINE OXYCODONE Not Detected Ref: Not Detected CREATININE,VERIFY 181 mg/dL URINE BUPRENORHINE DETECTED H Ref: Not Detected URINE FENTANYL Not Detected Ref: Not Detected Comments: Ordering Provider: Alejandro Carty MD Report Released Date/Time: Aug 06, 2024@11:21 Reporting Lab: [facility] [CLIA# [id number]] [address] [place] [id number] Performing Lab: [facility] [CLIA# [id number]] [address] [place] [id number] Collection time: Aug 06, 2024@10:14 Test Name Result Units Range --------- ------ ----- ----- GCMS SCREEN,U/M comment Comments: ~For Test: GCMS SCREEN,U/M ~Opiate metabolites Urine [...] U.S. Food and Drug Administration. Ordering Provider: Alejandro Carty MD Report Released Date/Time: Aug 08, 2024@15:40 Reporting Lab: [facility] [CLIA# [id number]] [address] [place] [id number] Performing Lab: [facility] [CLIA# [id number]] [facility] Dept of Pathology [address] [place] [address] [place] [address] Sincerely, ALEJANDRO CARTY MD Staff Physician, [facility] JUANIS,AARON CARTY,ALEJANDRO GARNICA [facility] Aug 06, 2024 09:53 AM PSYCHIATRY MEDICAT ION MGT NOTE: LOCAL TITLE: PSYCHIATRY MEDICATION STANDARD TITLE: PSYCHIATRY MEDICATION MGT NOTE DATE OF NOTE: AUG 06, 2024@09:53 ENTRY DATE: AUG 06, 2024@09:53:46 AUTHOR: ALEJANDRO CARTY EXP COSIGNER: URGENCY: STATUS: COMPLETED [facility] PHYSICIAN SUBOXONE MEDICATION REVIEW PATIENT IDENTIFYING DATA Name: AARON TRUJILLO Social Security Number: [id number] Age: 64 Gender: MALE Date: AUG 06, 2024 Start/end time: DSM 5 DIAGNOSTIC IMPRESSION: Severe opioid use disorder, in sustained remission on maintenance therapy INTERVENTIONS: - Medication managment - Psychoeducation INTERIM HISTORY: Patient seen for [id number] visit. Struggling with ongoing methamphetamine use. Reports his current environment leads to frequent exposures to methamphetamine. He continues to use most days. Reports that using methamphetamine gives him pep in his step , and allows him to be more active throughout his day. Initially denied other drug use, I reviewed his urine drug screen from June, admitted some opiate use in June though he reports he has been taking his Suboxone since then. Denies alcohol use, no acute mental health concerns. identifies his current living environment as significant risk for ongoing methamphetamine use. He considered remaining in the area today and engaging with a homeless program. As he does currently have housing, I discussed this with the homeless mainframe programmer, and immediate housing would not be available. He was somewhat disappointed but understood this process from past experience. [place] does have interest in achieving abstinence from methamphetamine. He is frustrated that he was unable to remain in contact with the [facility] residential program in April, and feels this was a missed opportunity. He remains interested in engaging with them as he feels a period of residential treatment would help him achieve stability. I have offered to place another consult to the [facility] program, he is well aware that he will need to maintain phone access in order to engage with them, complete screening, and follow-up with their recommendation. I discussed options in his current environment to support sobriety. He was previously talking with a friend who has long-term sobriety, and runs a 12- step meeting. He was hesitant to engage with this friend again, but after discussion he is open to considering this. Overall this was an important support that led to stability earlier this year. Given veterans current environment, I think maintaining a stable dose Suboxone is reasonable. I do think he will require closer contact given his ongoing methamphetamine use. I have asked him to return in 2 weeks. I have offered to place the consult to the [facility] residential program in the interim. I also provided resources for the 211 service in his area with the recommendation from the homeless cutting and boning supervisor that he try and engage with the supportive services for families program in his area. Acute Intoxication Acute Withdrawal No Last UDS: See below UDS Collected today?: Yes Cravings:Yes Medication SE:Denies Substance Use: See above Desire to Titrate?: No If yes, then when: MENTAL STATUS EXAM: Speech: normal rate and rhythm Mood: dysphoric Affect: Irritable Thought process: No alterations SI: Denies Insight: fair Judgment: fair Comments: MEDICATIONS: Active Outpatient Medications (including Supplies): Active Outpatient Medications Status 1) GABAPENTIN 800MG TAB TAKE ONE TABLET BY MOUTH THREE ACTIVE TIMES A DAY FOR NERVE PAIN 2) LEVOTHYROXINE NA (SYNTHROID) 150MCG TAB TAKE ONE ACTIVE TABLET BY MOUTH EVERY DAY IN THE MORNING FOR THYROID Pending Outpatient Medications Status 1) BUPRENORPHINE 8MG/NALOXONE 2MG SL FILM DISSOLVE 1 PENDING FILM UNDER THE TONGUE THREE TIMES A DAY 3 Total Medications LABS: Collection DT Specimen Test Name Result Units Ref Range 06/28/2024 10:46 URINE AMPHETAMINES DETECTED H Ref: Not Detected 05/22/2024 11:46 URINE AMPHETAMINES DETECTED H Ref: Not Detected 04/02/2024 08:29 URINE AMPHETAMINES DETECTED Ref: Not Detected 06/28/2024 10:46 URINE BENZODIAZEPINES Not Detected Ref: Not Detected 05/22/2024 11:46 URINE BENZODIAZEPINES Not Detected Ref: Not Detected 04/02/2024 08:29 URINE BENZODIAZEPINES Not Detected Ref: Not Detected 06/28/2024 10:46 URINE CANNABINOIDS,URINDETECTED H Ref: Not Detected 05/22/2024 11:46 URINE CANNABINOIDS,URINNot Detected Ref: Not Detected 04/02/2024 08:29 URINE CANNABINOIDS,URINDETECTED Ref: Not Detected 06/28/2024 10:46 URINE URINE METHADONE Not Detected Ref: Not Detected 05/22/2024 11:46 URINE URINE METHADONE Not Detected Ref: Not Detected 04/02/2024 08:29 URINE URINE METHADONE Not Detected Ref: Not Detected 06/28/2024 10:46 URINE OPIATES,URINE Not Detected Ref: Not Detected 05/22/2024 11:46 URINE OPIATES,URINE Not Detected Ref: Not Detected 04/02/2024 08:29 URINE OPIATES,URINE Not Detected Ref: Not Detected 06/28/2024 10:46 URINE BARBITURATES Not Detected Ref: Not Detected 05/22/2024 11:46 URINE BARBITURATES Not Detected Ref: Not Detected 04/02/2024 08:29 URINE BARBITURATES Not Detected Ref: Not Detected 06/28/2024 10:46 URINE COCAINE,URINE Not Detected Ref: Not Detected 05/22/2024 11:46 URINE COCAINE,URINE Not Detected Ref: Not Detected 04/02/2024 08:29 URINE COCAINE,URINE Not Detected Ref: Not Detected 06/28/2024 10:46 URINE CREATININE,VERIFY 111 mg/dL 05/22/2024 11:46 URINE CREATININE,VERIFY 112 mg/dL 04/02/2024 08:29 URINE CREATININE,VERIFY 257 H mg/dL 47 - 166 Assessment/Summary: 64 yo male with severe OUD on agonist therapy (Suboxone) TREATMENT PLAN REVIEW/UPDATE: [place] is engaged in opiate agonist therapy based on evidence based treatment guidelines and treatment plan. --PDMP Query: Done, no concerning Rx information --Naloxone Kit: UTD --Consulting Psychiatrist for Psychiatric Medication Management: No current psychiatric issues requiring psychiatric pharmacotherapy. --Suboxone Refill: Refill for tack picker --Other medical/medication Issues: BCVA residential consult --RTC (F2F) 08-20-24@0930 /es/ ALEJANDRO CARTY MD Staff Physician, [facility] Signed: 08/06/2024 10:03 ALEJANDRO CARTY [facility]
--- OUTSIDE RECORDS SUMMARY | 2024-08-20 06:00 | XMS_ITS ---
Author Name [facility] ([place] Organization [facility] ([place]) Address [address] [place] [id number] Care Team Providers Care Contract Mail Carrier Name Role Phone SEAN TRACY Primary Care [...] Lemon's Name Patient's Relationship to Policy Lemon [facility] ([facility]) MEDICARE ADVANTAGE [facility] ([facility]) March 13, 2017 [id number] HEDY OLIVAREZ PATIENT MEDICARE (WNR) MEDICARE (M) PART B March 13, 2014 PART B [id number] HEDY OLIVAREZ PATIENT MEDICARE (WNR) MEDICARE (M) PART B March 13, 2014 PART B [id number] [phone] [id number] HEDY OLIVAREZ PATIENT MEDICARE (WNR) MEDICARE (M) PART B March 13, 2014 PART B [id number] HEDY OLIVAREZ PATIENT MEDICARE (WNR) MEDICARE (M) PART B March 13, 2014 PART B [id number] HEDY OLIVAREZ PATIENT MEDICARE (WNR) MEDICARE (M) PART B March 13, 2014 PART B [id number] HEDY OLIVAREZ PATIENT MEDICARE (WNR) MEDICARE (M) PART B March 13, 2014 PART B [id number] HEDY OLIVAREZ PATIENT MEDICARE (WNR) MEDICARE (M) PART B March 13, 2014 PART B [id number] HEDY OLIVAREZ PATIENT MEDICARE (WNR) MEDICARE (M) PART B March 13, 2014 PART B [id number] HEDY OLIVAREZ PATIENT MEDICARE (WNR) MEDICARE (M) PART B March 13, 2014 PART B [id number] HEDY OLIVAREZ PATIENT MEDICARE (WNR) MEDICARE (M) PART B Jan 11, 2003 PART B [id number] HEDY OLIVAREZ PATIENT MEDICARE (WNR) MEDICARE (M) PART B Jan 11, 2003 PART B [id number] HEDY OLIVAREZ PATIENT MEDICARE (WNR) MEDICARE (M) PART B Jan 11, 2003 PART B [id number] HEDY OLIVAREZ PATIENT MEDICARE (WNR) MEDICARE (M) PART B Jan 11, 2003 PART B [id number] HEDY OLIVAREZ PATIENT MEDICARE (WNR) MEDICARE (M) PART A Nov 13, 2000 PART A [id number] HEDY OLIVAREZ PATIENT MEDICARE (WNR) MEDICARE (M) PART A Nov 13, 2000 PART A [id number] HEDY OLIVAREZ PATIENT MEDICARE (WNR) MEDICARE (M) PART A Nov 13, 2000 PART A [id number] HEDY OLIVAREZ PATIENT MEDICARE (WNR) MEDICARE (M) PART A Nov 13, 2000 PART A [id number] HEDY OLIVAREZ PATIENT MEDICARE (WNR) MEDICARE (M) PART A Jul 14, 1995 PART A [id number] HEDY OLIVAREZ PATIENT MEDICARE (WNR) MEDICARE (M) PART A Jul 14, 1995 PART A [id number] HEDY OLIVAREZ PATIENT MEDICARE (WNR) MEDICARE (M) PART A Jul 14, 1995 PART A [id number] HEDY OLIVAREZ PATIENT MEDICARE (WNR) MEDICARE (M) PART B Jul 14, 1995 PART B [id number] HEDY OLIVAREZ PATIENT MEDICARE (WNR) MEDICARE (M) PART B Jul 14, 1995 PART B [id number] HEDY OLIVAREZ PATIENT MEDICARE (WNR) MEDICARE (M) PART A Jul 14, 1995 PART A [id number] HEYD OLIVAREZ PATIENT MEDICARE (WNR) MEDICARE (M) PART A Jul 14, 1995 PART A [id number] HEDY OLIVAREZ PATIENT MEDICARE (WNR) MEDICARE (M) PART A Jul 14, 1995 PART A [id number] HEDY OLIVAREZ PATIENT MEDICARE (WNR) MEDICARE (M) PART A Jul 14, 1995 PART A [id number] HEDY OLIVAREZ PATIENT MEDICARE (WNR) MEDICARE (M) PART A Jul 14, 1995 PART A [id number] HEDY OLIVAREZ PATIENT MEDICARE (WNR) MEDICARE (M) PART A Jul 14, 1995 PART A [id number] HEDY OLIVAREZ PATIENT MEDICARE (WNR) MEDICARE (M) PART A Jul 14, 1995 PART A [id number] HEDY OLIVAREZ PATIENT MEDICARE (WNR) MEDICARE (M) PART A Jul 14, 1995 PART A [id number] HEDY OLIVAREZ PATIENT MEDICARE PART D (WNR) MEDICARE (M) PART D Oct 13, 2022 PART D [id number] HEDY OLIVAREZ PATIENT [facility] MCR (WNR) MEDICARE ADVANTAGE MCR (WNR) Oct 13, 2022 [id number] HEDY OLIVAREZ PATIENT Selected Encounter This section includes the information on record at NH for the Encounter. Date/Time Encounter Type Encounter Description Reason Provider Source Aug 20, 2024 10:00 AM OFFICE O/P EST MOD 30 MIN SUBSTANCE USE DISORDER IND ICD-10-CM F11.21 Opioid dependence, in remission ALEJANDRO CARSON [facility] Encounter Template Text not used by NH Assessments - Encounter Diagnoses This section includes the primary and secondary diagnoses documented for the Encounter. Date/Time Primary/Secondary Diagnosis Diagnosis Name Provider Source Aug 20, 2024 11:59 AM PRIMARY Opioid dependence, in remission ALEJANDRO CARSON [facility] Aug 20, 2024 11:59 AM SECONDARY Other stimulant dependence, uncomplicated ALEJANDRO CARSON [facility] Plan of Treatment: Future Appointments (+ 6 months) and Future Tests (+/- 45 days) The Plan of Treatment section includes [facility] care [facility] the [facility] This section includes future appointments and future orders which are active, pending or scheduled. Future Appointments This section includes appointments that were scheduled to occur 6 months from the date of the Encounter, up to a maximum of 20 appointments. The data comes from all [place] treatment facilities. Appointment Date/Time Appointment Type Appointme nt Facility Name Sep 16, 2024 09:00 AM AMBULATORY - MEDICINE [facility] Sep 17, 2024 11:00 AM AMBULATORY - PSYCHIATRY [facility] Oct 14, 2024 11:30 AM AMBULATORY - PSYCHIATRY [facility] Oct 29, 2024 08:30 AM AMBULATORY - PSYCHIATRY [facility] Nov 04, 2024 02:00 PM AMBULATORY - PSYCHIATRY [facility] Nov 15, 2024 01:00 PM AMBULATORY - MEDICINE [facility] Nov 19, 2024 08:00 AM AMBULATORY - PSYCHIATRY [facility] Nov 26, 2024 10:00 AM AMBULATORY - PSYCHIATRY [facility] Dec 24, 2024 11:00 AM AMBULATORY - PSYCHIATRY [facility] Dec 31, 2024 09:00 AM AMBULATORY - PSYCHIATRY [facility] Dec 31, 2024 02:30 PM AMBULATORY - PSYCHIATRY [facility] Jan 07, 2025 10:00 AM AMBULATORY - PSYCHIATRY [facility] Jan 28, 2025 10:00 AM AMBULATORY - PSYCHIATRY [facility] Jan 28, 2025 11:50 AM AMBULATORY - MEDICINE [facility] Feb 07, 2025 08:30 AM AMBULATORY - MEDICINE [facility] Feb 13, 2025 08:00 AM AMBULATORY - PSYCHIATRY [facility] Active, Pending, and Scheduled Orders This section includes a listing of several types of active, pending, and scheduled orders, including clinic medications orders, diagnostic test orders, procedure orders and consult orders; where the start date of the order is 45 days before the date of the Encounter or 45 days after the date of theEncounter. The data comes from all [place] treatment facilities. Test Date/Time Test Type Test Details Facility Name Sep 16, 2024 12:00 AM Laboratory - Chemi stry Order OCCULT BLOOD,FIT X1 SCREEN STOOL FECES SP [facility] Lab Results: +/- 30 days of the encounter This section includes the Chemistry and Hematology Lab Results on record with NH for the patient. Radiology Reports and Pathology Reports are provided separately, in subsequent sections. Lab Results This section contains the Chemistry/Hematology Results that were resulted 30 days before or 30 daysafter the date of the Encounter. Date/Time Source Result Type Result - Unit Interpretation Reference Range Specimen Type Comment Aug 06, 2024 10:14 AM [facility] GCMS SCREEN,U/M URINE,RA NDOM Specimen Type: [...] Food and Drug Administration. Ordering Provider: ALEJANDRO CARSON Report Released Date/Time: Aug 06, 2024 09:11 AM Reporting Lab: [address] [address] Performing Lab: [facility] Dept of Pathology [facility] [id number] GCMS SCREEN,U/M comment Aug 06, 2024 10:14 AM [facility] TOX SCREEN ([facility]) URINE,RANDOM Specimen Type : URINE,RANDOM Comment: ~For Test: GCMS SCREEN,U/M ~Opiate metabolites Ordering Provider: ALEJANDRO CARSON Report Released Date/Time: Aug 06, 2024 09:11 AM Reporting Lab: [address] [id number] Performing Lab: [address] [address] BENZODIAZEPINES Not Detected Not Detecte d CANNABINOIDS,URINE [...] and tobacco- related health factors from the NH facility where the Encounter took place. Current Smoking Status This section includes the most current smoking, or tobacco-related health factor, from the NH facility where the Encounter took place. Date/Time Current Smoking Status Comment Rom itharjeet Feb 07, 2023 11:00 AM VA-TOBACCO USER EVERY DAY [facility] Tobacco Use History This section includes a history of the smoking, or tobacco-related health factors, that were collected on or before the date of the Encounter. The data comes from the NH facility where the Encounter took place. Date/Time Smoking Status/Tobacco Use Comment F acility Feb 07, 2023 11:00 AM VA-TOBACCO USE ADVICE [facility] Feb 07, 2023 11:00 AM VA-TOBACCO USE PORT TRAFFIC MANAGER YES [facility] Feb 07, 2023 11:00 AM VA-TOBACCO USE MED NOTIFY PROVIDER [facility] Feb 07, 2023 11:00 AM VA-TOBACCO USE WI 30 MIN OF WAKEUP [facility] Feb 07, 2023 11:00 AM VA-TOBACCO USER EVERY DAY [facility] Feb 16, 2022 01:00 PM VA-TOBACCO USE 30 YEARS OR MORE [facility] Feb 16, 2022 01:00 PM VA-TOBACCO USE ADVICE [facility] Feb 16, 2022 01:00 PM VA-TOBACCO USE PORT TRAFFIC MANAGER NO [facility] Feb 16, 2022 01:00 PM VA-TOBACCO USE MED NO [facility] Feb 16, 2022 01:00 PM VA-TOBACCO USE WI 30 MIN OF WAKEUP [facility] Feb 16, 2022 01:00 PM VA-TOBACCO USER EVERY DAY [facility] Jun 21, 2020 04:12 AM CURRENT TOBACCO USER [facility] Jun 21, 2020 04:12 AM TOBACCO OFFERRED S TOP SMOKING CLINIC [facility] Jun 09, 2020 01:24 PM CURRENT TOBACCO USER [facility] Jun 09, 2020 01:24 PM TOBACCO OFFERRED S TOP SMOKING CLINIC [facility] Jul 24, 2019 01:11 PM VA-TOBACCO USE 30 YEARS OR MORE [facility] Jul 24, 2019 01:11 PM VA-TOBACCO USE ADVICE [facility] Jul 24, 2019 01:11 PM VA-TOBACCO USE PORT TRAFFIC MANAGER NO [facility] Jul 24, 2019 01:11 PM VA-TOBACCO USE MED NO [facility] Jul 24, 2019 01:11 PM VA-TOBACCO USE WI 30 MIN OF WAKEUP [facility] Jul 24, 2019 01:11 PM VA-TOBACCO USER EVERY DAY [facility] March 23, 2018 09:34 AM SMOKING CESSATION NO [facility] March 16, 2018 08:14 PM CURRENT TOBACCO USER [facility] March 16, 2018 08:14 PM SMOKER - OFFERRED MEDS (PROVIDER) [facility] March 16, 2018 08:14 PM TOBACCO OFFERRED S TOP SMOKING CLINIC [facility] Advance Directives: All historical and current Section Date Range: From patient's date of to the date document was created. This section includes ALL of a patient's completed or amended NH Advance and Rescinded Directives. The entries below indicate that a directive exists for the patient, but an actual copy is not included with this document. The data comes from all [place] facilities. Date Advance Directives Provider Source Nov 28, 2017 ADVANCE DIRECTIVE DISCUSSION JOSE ALEJANDRO BULLARD [facility] March 16, 2015 ADVANCE DIRECTIVE ISIDRO,CASEY N [facility] Jun 30, 2014 ADVANCE DIRECTIVE DISCUSSION TOLEDOIVONE [facility] Jan 21, 2003 ADVANCE DIRECTIVE DISCUSSION TJ MERCADO Jan 07, 2003 ADVANCE DIRECTIVE DISCUSSION SANCHEZ BROWN Encounter Notes: All associated encounter notes This section contains the clinical notes associated to the Encounter. Date/Time Encounter Note(s) Provider Source Sep 17, 2024 09:43 AM ACCOUNTING OF DISC LOSURES NOTE: LOCAL TITLE: STATE PRESCRIPTION DRUG MONITORING PROGRAM STANDARD TITLE: ACCOUNTING OF DISCLOSURES NOTE DATE OF NOTE: SEP 17, 2024@09:43:59 ENTRY DATE: SEP 17, 2024@09:43:59 AUTHOR: ALEJANDRO CARSON EXP COSIGNER: URGENCY: STATUS: COMPLETED This PDMP query was submitted by Alejandro Carson MD. The clinical justification for this PDMP query is to review controlled substances prescribed outside of the [facility], and any additional information that may become available, as an important component of standard clinical care, and in accordance with [facility] policy. Patient information was shared with the PDMP [place]. No prescription(s) for controlled substances outside the [facility] were found in the last 90 days. /donya CARSON MD Staff Physician, [facility] Signed: 09/17/2024 09:44 ALEJANDRO CRASON [facility] Aug 20, 2024 01:37 PM MEDICATION MGT NOT E: LOCAL TITLE: NALOXONE PRESCRIBING STANDARD TITLE: MEDICATION MGT NOTE DATE OF NOTE: AUG 20, 2024@13:37 ENTRY DATE: AUG 20, 2024@13:37:18 AUTHOR: ALEJANDRO CARSON EXP COSIGNER: URGENCY: STATUS: COMPLETED Opioid Overdose Education and Naloxone Distribution (OEND) Patient has an indication for OEND due to following: Opioid use disorder/opioid dependence (current or past) Education provided This section supports standardized OEND. Because patient has risk factors for overdose, OEND is recommended. OEND prescribing should include critical education on opioid overdose prevention, recognition, and response. Education provided to: Patient The following resources were shared: Other: Reivewed indications and use with Naloxone An order for naloxone was placed. /donya CARSON MD Staff Physician, [facility] Signed: 08/20/2024 13:38 ALEJANDRO CARSON [facility] Aug 20, 2024 10:00 AM PSYCHIATRY MEDICAT ION MGT NOTE: LOCAL TITLE: PSYCHIATRY MEDICATION STANDARD TITLE: PSYCHIATRY MEDICATION MGT NOTE DATE OF NOTE: AUG 20, 2024@10:00 ENTRY DATE: AUG 20, 2024@11:50:09 AUTHOR: MACHELLEALEJANDRO DANIKA EXP COSIGNER: URGENCY: STATUS: COMPLETED SAC PHYSICIAN SUBOXONE MEDICATION REVIEW PATIENT IDENTIFYING DATA Name: AARON OLIVAREZ Social Security Number: [id number] Age: 64 Gender: MALE Date: AUG 20, 2024 Start/end time: [id number] DSM 5 DIAGNOSTIC IMPRESSION: Severe opioid use disorder, in sustained remission on maintenance therapy INTERVENTIONS: - Medication managment - Psychoeducation INTERIM HISTORY: Audrey seen for iitc-fu-mnri visit. Arrived late but was able to accommodate him today. Audrey was open about continuing methamphetamine use. Describes use several times per week over the past month, though has not used for the past 3 to 4 days. He reports this was because he lost his billfold, including his recently cashed check and ID. States he filed a police report related to this but has not had resolution. Audrey and I again discussed options to try and stabilize his condition. He notes that his current domicile is not optimal for supporting recovery. Heavy marijuana use where he lives, though he notes he will obtain methamphetamine when he goes into town, usually 2-3 times per month. This has been costing $20-$30 per trip. He denies any alcohol use, denies opiate use, rarely uses marijuana. Audrey again expressed an interest in attending the [facility] residential program. He is again without a phone at this time. We discussed the importance of having stable phone access in order to facilitate the screening and admission process. He reports that he will work on this again. I we will defer placing another consult until I can confirm he has a stable phone. As an alternative, I noted that he has been sent a letter from the [facility] program, and he could use that information to contact them directly to try and schedule. I asked audrey again if he had any contact with his one friend who is in long-term stable recovery and in the past has been supportive. He admits he has been hesitant to be in contact, though has spoken with him a couple times in the past month. I asked whether he is engaged that person for assistance, and he noted my pride always gets in the way . After discussion, it seems he might be able to engage this person to provide a temporary place to live, in order to facilitate admission to [facility]. I again encouraged him to consider contacting that person, to see if they provide some assistance. [place] reports he has remained abstinent from opiates, and Suboxone is helpful for this. His urine drug screen from last month supports this. I think it is reasonable to continue Suboxone for now. Given his current transportation difficulty, I have offered follow-up in 1 month, though I have encouraged him to contact me if he has stable phone access, and I will place consult again to [facility] for residential evaluation. BAM-R completed. Acute Intoxication No Acute Withdrawal No Last UDS: See below UDS Collected today?: Yes Cravings:No Medication SE:Denies Substance Use: Above Desire to Titrate?: No If yes, then when: MENTAL STATUS EXAM: Speech: normal rate and rhythm Mood: dysphoric Affect: Irritable Thought process: No alterations SI: Denies Insight: fair Judgment: poor Comments: MEDICATIONS: Active Outpatient Medications (including Supplies): Active Outpatient Medications Status 1) ALBUTEROL 90MCG (CFC-F) 200D ORAL INHL INHALE 2 PUFFS ACTIVE BY INHALATION EVERY 4 HOURS NEEDED FOR SHORTNESS OF BREATH FOR SHORTNESS OF BREATH 2) AMLODIPINE BESYLATE 10MG TAB TAKE ONE TABLET BY MOUTH ACTIVE ONCE DAILY FOR BLOOD PRESSURE 3) BUPRENORPHINE 8MG/NALOXONE 2MG SL FILM DISSOLVE 1 ACTIVE FILM UNDER THE TONGUE THREE TIMES A DAY FOR OPIOID DEPENDENCE 4) GABAPENTIN 800MG TAB TAKE ONE TABLET BY MOUTH THREE ACTIVE TIMES A DAY FOR NERVE PAIN 5) LEVOTHYROXINE NA (SYNTHROID) 150MCG TAB TAKE ONE ACTIVE TABLET BY MOUTH EVERY DAY IN THE MORNING FOR THYROID Pending Outpatient Medications Status 1) BUPRENORPHINE 8MG/NALOXONE 2MG SL FILM DISSOLVE 1 PENDING FILM UNDER THE TONGUE THREE TIMES A DAY 6 Total Medications LABS: Collection DT Specimen Test Name Result Units Ref Range 08/06/2024 10:14 URINE AMPHETAMINES DETECTED H Ref: Not Detected 06/28/2024 10:46 URINE AMPHETAMINES DETECTED H Ref: Not Detected 05/22/2024 11:46 URINE AMPHETAMINES DETECTED H Ref: Not Detected 08/06/2024 10:14 URINE BENZODIAZEPINES Not Detected Ref: Not Detected 06/28/2024 10:46 URINE BENZODIAZEPINES Not Detected Ref: Not Detected 05/22/2024 11:46 URINE BENZODIAZEPINES Not Detected Ref: Not Detected 08/06/2024 10:14 URINE CANNABINOIDS,URINDETECTED H Ref: Not Detected 06/28/2024 10:46 URINE CANNABINOIDS,URINDETECTED H Ref: Not Detected 05/22/2024 11:46 URINE CANNABINOIDS,URINNot Detected Ref: Not Detected 08/06/2024 10:14 URINE URINE METHADONE Not Detected Ref: Not Detected 06/28/2024 10:46 URINE URINE METHADONE Not Detected Ref: Not Detected 05/22/2024 11:46 URINE URINE METHADONE Not Detected Ref: Not Detected 08/06/2024 10:14 URINE OPIATES,URINE Not Detected Ref: Not Detected 06/28/2024 10:46 URINE OPIATES,URINE Not Detected Ref: Not Detected 05/22/2024 11:46 URINE OPIATES,URINE Not Detected Ref: Not Detected 08/06/2024 10:14 URINE BARBITURATES Not Detected Ref: Not Detected 06/28/2024 10:46 URINE BARBITURATES Not Detected Ref: Not Detected 05/22/2024 11:46 URINE BARBITURATES Not Detected Ref: Not Detected 08/06/2024 10:14 URINE COCAINE,URINE Not Detected Ref: Not Detected 06/28/2024 10:46 URINE COCAINE,URINE Not Detected Ref: Not Detected 05/22/2024 11:46 URINE COCAINE,URINE Not Detected Ref: Not Detected 08/06/2024 10:14 URINE CREATININE,VERIFY 181 mg/dL 06/28/2024 10:46 URINE CREATININE,VERIFY 111 mg/dL 05/22/2024 11:46 URINE CREATININE,VERIFY 112 mg/dL Assessment/Summary: 64 yo male with severe OUD on agonist therapy (Suboxone) TREATMENT PLAN REVIEW/UPDATE: is engaged in opiate agonist therapy based on evidence based treatment guidelines and treatment plan. --PDMP Query: Done, no concerning Rx information --Naloxone Kit: Reviewed/Renewed/Ordered --Consulting Psychiatrist for Psychiatric Medication Management: No current psychiatric issues requiring psychiatric pharmacotherapy. --Suboxone Refill: Refill for parts picker --Other medical/medication Issues: Consult for [facility] program after reliable phone access is confirmed. --RTC (F2F) 09-17-24@1100 /es/ ALEJANDRO CARSON MD Staff Physician, [facility] Signed: 08/20/2024 11:59 ALEJANDRO CARSON [facility]
--- OUTSIDE RECORDS SUMMARY | 2024-08-20 08:30 | XMS_ITS | Encounter Summary ---
Author Name [facility] ([place]) Address [address] [place] [id number] Care Team Providers Care Manager Of School Name Role Phone SEAN TRACY Primary Care [...] Lemon's Name Patient's Relationship to Policy Lemon [facility] (WN) MEDICARE ADVANTAGE [facility] ([facility]) March 13, 2017 [id number] HEDY OLIVAREZ PATIENT MEDICARE (WNR) MEDICARE (M) PART B March 13, 2014 PART B [id number] HEDY OLIVAREZ PATIENT MEDICARE (WNR) MEDICARE (M) PART B March 13, 2014 PART B [id number] HEDY OLIVAREZ PATIENT MEDICARE (WNR) MEDICARE (M) PART B March 13, 2014 PART B [id number] HEDY OLIVAREZ PATIENT MEDICARE (WNR) MEDICARE (M) PART B March 13, 2014 PART B [id number] HEDY OLIVAREZ PATIENT MEDICARE (WNR) MEDICARE (M) PART B March 13, 2014 PART B [id number] HEDY OLIVAREZ PATIENT MEDICARE (WNR) MEDICARE (M) PART B March 13, 2014 PART B [id number] HEDY OLIVAREZ PATIENT MEDICARE (WNR) MEDICARE (M) PART B March 13, 2014 PART B [id number] HEDY OLIVAREZ PATIENT MEDICARE (WNR) MEDICARE (M) PART B March 13, 2014 PART B [id number] HEDY OLIVAREZ PATIENT MEDICARE (WNR) MEDICARE (M) PART B March 13, 2014 PART B [id number] HEDY OLIVAREZ PATIENT MEDICARE (WNR) MEDICARE (M) PART B Jan 11, 2003 PART B [id number] HEDY OLIVAREZ PATIENT MEDICARE (WNR) MEDICARE (M) PART B Jan 11, 2003 PART B [id number] HEDY OLIVAREZ PATIENT MEDICARE (WNR) MEDICARE (M) PART B Jan 11, 2003 PART B [id number] HEDY OLIVAREZ PATIENT MEDICARE (WNR) MEDICARE (M) PART B Jan 11, 2003 PART B [id number] HEDY OLIVAREZ PATIENT MEDICARE (WNR) MEDICARE (M) PART A Nov 13, 2000 PART A [id number] HEDY OLIVAREZ PATIENT MEDICARE (WNR) MEDICARE (M) PART A Nov 13, 2000 PART A [id number] HEDY OLIVAREZ PATIENT MEDICARE (WNR) MEDICARE (M) PART A Nov 13, 2000 PART A [id number] HEDY OLIVAREZ PATIENT MEDICARE (WNR) MEDICARE (M) PART A Nov 13, 2000 PART A [id number] HEDY OLIVAREZ PATIENT MEDICARE (WNR) MEDICARE (M) PART A Jul 14, 1995 PART A [id number] HEDY OLIVAREZ PATIENT MEDICARE (WNR) MEDICARE (M) PART A Jul 14, 1995 PART A [id number] HEDY OLIVAREZ PATIENT MEDICARE (WNR) MEDICARE (M) PART A Jul 14, 1995 PART A [id number] HEDY OLIVAREZ PATIENT MEDICARE (WNR) MEDICARE (M) PART B Jul 14, 1995 PART B [id number] HEDY OLIVAREZ PATIENT MEDICARE (WNR) MEDICARE (M) PART B Jul 14, 1995 PART B [id number] HEDY OLIVAREZ PATIENT MEDICARE (WNR) MEDICARE (M) PART A Jul 14, 1995 PART A [id number] HEDY OLIVAREZ PATIENT MEDICARE (WNR) MEDICARE (M) PART A Jul 14, 1995 PART A [id number] HEDY OLIVAREZ PATIENT MEDICARE (WNR) MEDICARE (M) PART A Jul 14, 1995 PART A [id number] HEDY OLIVAREZ PATIENT MEDICARE (WNR) MEDICARE (M) PART A Jul 14, 1995 PART A [id number] HEDY OLIVAREZ PATIENT MEDICARE (WNR) MEDICARE (M) PART A Jul 14, 1995 PART A [id number] HEDY OLIVAREZ PATIENT MEDICARE (WNR) MEDICARE (M) PART A Jul 14, 1995 PART A [id number] HEDY OLIVAREZ PATIENT MEDICARE (WNR) MEDICARE (M) PART A Jul 14, 1995 PART A [id number] HEDY OLIVAREZ PATIENT MEDICARE (WNR) MEDICARE (M) PART A Jul 14, 1995 PART A [id number] HEDY OLIVAREZ PATIENT MEDICARE PART D (WNR) MEDICARE (M) PART D Oct 13, 2022 PART D [id number] HEDY OLIVAREZ PATIENT [facility] MCR (WNR) MEDICARE ADVANTAGE MCR (WNR) Oct 13, 2022 [id number] HEDY OLIVAREZ PATIENT Selected Encounter This section includes the information on record at [place] for the Encounter. Date/Time Encounter Type Encounter Description Reason Pro vider Source Aug 20, 2024 12:30 PM Outpatient Encounter CLINICAL PHARMACY IHE Encounter Template Text not used by [place] Plan of Treatment: Future Appointments (+ 6 months) and Future Tests (+/- 45 days) The Plan of Treatment section includes future care activities for the [facility] This section includes future appointments and future orders which are active, pending or scheduled. Future Appointments This section includes appointments that were scheduled to occur 6 months from the date of the Encounter, up to a maximum of 20 appointments. The data comes from all [place] treatment facilities. Appointment Date/Time Appointment Type Appointme nt Facility Name Sep 16, 2024 09:00 AM AMBULATORY - MEDICINE [facility] Sep 17, 2024 11:00 AM AMBULATORY - PSYCHIATRY [facility] Oct 14, 2024 11:30 AM AMBULATORY - PSYCHIATRY [facility] Oct 29, 2024 08:30 AM AMBULATORY - PSYCHIATRY [facility] Nov 04, 2024 02:00 PM AMBULATORY - PSYCHIATRY [facility] Nov 15, 2024 01:00 PM AMBULATORY - MEDICINE [facility] Nov 19, 2024 08:00 AM AMBULATORY - PSYCHIATRY [facility] Nov 26, 2024 10:00 AM AMBULATORY - PSYCHIATRY [facility] Dec 24, 2024 11:00 AM AMBULATORY - PSYCHIATRY [facility] Dec 31, 2024 09:00 AM AMBULATORY - PSYCHIATRY [facility] Dec 31, 2024 02:30 PM AMBULATORY - PSYCHIATRY [facility] Jan 07, 2025 10:00 AM AMBULATORY - PSYCHIATRY [facility] Jan 28, 2025 10:00 AM AMBULATORY - PSYCHIATRY [facility] Jan 28, 2025 11:50 AM AMBULATORY - MEDICINE [facility] Feb 07, 2025 08:30 AM AMBULATORY - MEDICINE [facility] Feb 13, 2025 08:00 AM AMBULATORY - PSYCHIATRY [facility] Active, Pending, and Scheduled Orders This section includes a listing of several types of active, pending, and scheduled orders, including clinic medications orders, diagnostic test orders, procedure orders and consult orders; where the start date of the order is 45 days before the date of the Encounter or 45 days after the date of theEncounter. The data comes from all [place] treatment facilities. Test Date/Time Test Type Test Details Facility Name Sep 16, 2024 12:00 AM Laboratory - Chemi stry Order OCCULT BLOOD,FIT X1 SCREEN STOOL FECES SP [facility] Lab Results: +/- 30 days of the encounter This section includes the Chemistry and Hematology Lab Results on record with [place] for the patient. Radiology Reports and Pathology Reports are provided separately, in subsequent sections. Lab Results This section contains the Chemistry/Hematology Results that were resulted 30 days before or 30 daysafter the date of the Encounter. Date/Time Source Result Type Result - Unit Interpretation Reference Range Specimen Type Comment Aug 06, 2024 10:14 AM [facility] GCMS SCREEN,U/M URINE,RA NDOM Specimen Type: URINE,RANDOM [...] Aug 06, 2024 09:11 AM Reporting Lab: [address] [address] Performing Lab: [facility] Dept of Pathology [facility] [address] GCMS SCREEN,U/M comment Aug 06, 2024 10:14 AM [facility] TOX SCREEN ([facility]) URINE,RANDOM Specimen Type : URINE,RANDOM Comment: ~For Test: GCMS SCREEN,U/M ~Opiate metabolites Ordering Provider: MARCIA CARTY Report Released Date/Time: Aug 06, 2024 09:11 AM Reporting Lab: [address] [place] [address] Performing Lab: [facility] [address] [address] BENZODIAZEPINES Not Detected Not Detecte d CANNABINOIDS,URINE [...] and tobacco- related health factors from the [place] facility where the Encounter took place. Current Smoking Status This section includes the most current smoking, or tobacco-related health factor, from the [place] facility where the Encounter took place. Date/Time Current Smoking Status Comment Facil ity Feb 07, 2023 11:00 AM VA-TOBACCO USER EVERY DAY [facility] Tobacco Use History This section includes a history of the smoking, or tobacco-related health factors, that were collected on or before the date of the Encounter. The data comes from the [place] facility where the Encounter took place. 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 [facility] Feb 07, 2023 11:00 AM VA-TOBACCO USE MED NOTIFY PROVIDER [facility] Feb 07, 2023 11:00 AM VA-TOBACCO USE WI 30 MIN OF WAKEUP [facility] Feb 07, 2023 11:00 AM VA-TOBACCO USER EVERY DAY [facility] Feb 16, 2022 01:00 PM VA-TOBACCO USE 30 YEARS OR MORE [facility] Feb 16, 2022 01:00 PM VA-TOBACCO USE ADVICE [facility] Feb 16, 2022 01:00 PM VA-TOBACCO USE 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 [facility] Feb 16, 2022 01:00 PM VA-TOBACCO USE MED NO [facility] Feb 16, 2022 01:00 PM VA-TOBACCO USE WI 30 MIN OF WAKEUP [facility] Feb 16, 2022 01:00 PM VA-TOBACCO USER EVERY DAY [facility] Jun 21, 2020 04:12 AM CURRENT TOBACCO USER [facility] Jun 21, 2020 04:12 AM TOBACCO OFFERRED S TOP SMOKING CLINIC [facility] Jun 09, 2020 01:24 PM CURRENT TOBACCO USER [facility] Jun 09, 2020 01:24 PM TOBACCO OFFERRED S TOP SMOKING CLINIC [facility] Jul 24, 2019 01:11 PM VA-TOBACCO USE 30 YEARS OR MORE [facility] Jul 24, 2019 01:11 PM VA-TOBACCO USE ADVICE [facility] Jul 24, 2019 01:11 PM VA-TOBACCO USE 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 [facility] Jul 24, 2019 01:11 PM VA-TOBACCO USE MED NO [facility] Jul 24, 2019 01:11 PM VA-TOBACCO USE WI 30 MIN OF WAKEUP [facility] Jul 24, 2019 01:11 PM VA-TOBACCO USER EVERY DAY [facility] March 23, 2018 09:34 AM SMOKING CESSATION NO [facility] March 16, 2018 08:14 PM CURRENT TOBACCO USER [facility] March 16, 2018 08:14 PM SMOKER - OFFERRED MEDS (PROVIDER) [facility] March 16, 2018 08:14 PM TOBACCO OFFERRED S TOP SMOKING CLINIC [facility] Advance Directives: All historical and current Section Date Range: From patient's date of to the date document was created. This section includes ALL of a patient's completed or amended [place] Advance and Rescinded Directives. The entries below indicate that a directive exists for the patient, but an actual copy is not included with this document. The data comes from all [facility]. Date Advance Directives Provider Source Nov 28, 2017 ADVANCE DIRECTIVE DISCUSSION JOSE ALEJANDRO [facility]ULL[facility] March 16, 2015 ADVANCE DIRECTIVE CASEY FELIX [facility] Jun 30, 2014 ADVANCE DIRECTIVE DISCUSSION IVONE [facility] Jan 21, 2003 ADVANCE DIRECTIVE DISCUSSION TJ MERCADO Jan 07, 2003 ADVANCE DIRECTIVE DISCUSSION SANCHEZ BROWN Encounter Notes: All associated encounter notes This section contains the clinical notes associated to the Encounter. Date/Time Encounter Note(s) Provider Source Aug 20, 2024 11:19 PM ADDENDUM: LOCAL TITLE: Addendum STANDARD TITLE: ADDENDUM DATE OF NOTE: AUG 20, 2024@23:19:24 ENTRY DATE: AUG 20, 2024@23:19:24 AUTHOR: SEAN TRACY MD EXP COSIGNER: URGENCY: STATUS: COMPLETED Future Appointments: Date Time Clinic == 09/17/2024 11:00 JENNIFER PARRY 1 PACT SONOGRAPHER, please f/u with pt: - Did he find his gabapentin? If not, please clarify what dose is he taking? (Is he taking higher dose than prescribed?) - He did not show to last appt (07/2024). New RTC placed for Primary Care. Please advise pt to call to schedule. - Labs due for. I ordered labs for 09/17/24 when he is next at [place]; please stop by Lab then. Thank you. /aren/ SEAN TRACY MD Attending Physician, General Medicine Signed: 08/20/2024 23:24 Receipt Acknowledged By: 08/22/2024 12:05 /aren/ MICHI HOPKINS LPN --- Original Document --- 08/20/24 PHARMACY CONTACT CENTER NOTE: MEDICATION RENEW [id number] SUBSTANCE: [facility]? /Patient Contact via: Phone Requesting renewal of medication: GABAPENTIN 800MG TAB -- per fill history he should be good until September but pt stated he was not sure if he had any left. I instructed him to go home and look but to reach out to his team if he could not find his medication. Please send medication: Mail Disposition: Notification forwarded to provider for review of renewal request. /aren/ MAKI ERVIN [facility] Signed: 08/20/2024 12:33 Receipt Acknowledged By: * AWAITING SIGNATURE * LINDA ORTIZ 08/20/2024 23:14 /aren/ SEAN TRACY MD Attending Physician, General Medicine 08/22/2024 ADDENDUM STATUS: UNSIGNED You may not VIEW this UNSIGNED Addendum. SEAN TRACY MD [facility] Aug 20, 2024 12:30 PM PHARMACY NOTE: LOCAL TITLE: PHARMACY CONTACT CENTER NOTE STANDARD TITLE: PHARMACY NOTE DATE OF NOTE: AUG 20, 2024@12:30 ENTRY DATE: AUG 20, 2024@12:30:46 AUTHOR: MAKI ERVIN EXP COSIGNER: URGENCY: STATUS: COMPLETED PHARMACY CONTACT CENTER NOTE Has ADDENDA MEDICATION RENEW [id number] SUBSTANCE: Who is contacting the [facility]? [place]/Patient Contact via: Phone Requesting renewal of medication: GABAPENTIN 800MG TAB -- per fill history he should be good until September but pt stated he was not sure if he had any left. I instructed him to go home and look but to reach out to his team if he could not find his medication. Please send medication: Mail Disposition: Notification forwarded to provider for review of renewal request. /aren/ MAKI ERVIN [facility] Signed: 08/20/2024 12:33 Receipt Acknowledged By: 08/26/2024 09:43 /aren/ Linda Ortiz Internal Medicine Resident 08/20/2024 23:14 /aren/ SEAN TRACY MD Attending Physician, General Medicine 08/20/2024 ADDENDUM STATUS: COMPLETED Future Appointments: Date Time Clinic == 09/17/2024 11:00 JENNIFER PARRY 1 PACT SONOGRAPHER, please f/u with pt: - Did he find his gabapentin? If not, please clarify what dose is he taking? (Is he taking higher dose than prescribed?) - He did not show to last appt (07/2024). New RTC placed for Primary Care. Please advise pt to call to schedule. - Labs due for. I ordered labs for 09/17/24 when he is next at [place]; please stop by Lab then. Thank you. /aren/ SEAN TRACY MD Attending Physician, General Medicine Signed: 08/20/2024 23:24 Receipt Acknowledged By: 08/22/2024 12:05 /aren/ MICHI HOPKINS LPN 08/22/2024 ADDENDUM STATUS: COMPLETED SONOGRAPHER attempted to contact patient his phone has a message on it stating the phone number has restrictions so i was unable to leave a voicemail , there is only one contact number listed . i will mail a letter to the pt home address. /aren/ MICHI HOPKINS LPN Signed: 08/22/2024 12:19 MAKI ERVIN [facility]
--- OUTSIDE RECORDS SUMMARY | 2024-09-16 05:00 | XMS_ITS ---
Author Name [facility] of [facility] ([place]) Organization [facility] ([place]) Address [address] [place] [id number] Care Team Providers Care Insurance Specialist Name Role Phone SEAN TRACY Primary Care [...] Lemon's Name Patient's Relationship to Policy Lemon [facility] (WNR) MEDICARE ADVANTAGE [facility] ([facility]) March 13, 2017 [id number] HEDY OLIVAREZ PATIENT MEDICARE (WNR) MEDICARE (M) PART B March 13, 2014 PART B [id number] HEDY OLIVAREZ PATIENT MEDICARE (WNR) MEDICARE (M) PART B March 13, 2014 PART B [id number] HEDY OLIVAREZ PATIENT MEDICARE (WNR) MEDICARE (M) PART B March 13, 2014 PART B [id number] HEDY OLIVAREZ PATIENT MEDICARE (WNR) MEDICARE (M) PART B March 13, 2014 PART B [id number] HEDY OLIVAREZ PATIENT MEDICARE (WNR) MEDICARE (M) PART B March 13, 2014 PART B [id number] HEDY OLIVAREZ PATIENT MEDICARE (WNR) MEDICARE (M) PART B March 13, 2014 PART B [id number] HEDY OLIVAREZ PATIENT MEDICARE (WNR) MEDICARE (M) PART B March 13, 2014 PART B [id number] HEDY OLIVAREZ PATIENT MEDICARE (WNR) MEDICARE (M) PART B March 13, 2014 PART B [id number] HEDY OLIVAREZ PATIENT MEDICARE (WNR) MEDICARE (M) PART B March 13, 2014 PART B [id number] HEDY OLIVAREZ PATIENT MEDICARE (WNR) MEDICARE (M) PART B Jan 11, 2003 PART B [id number] HEDY OLIVAREZ PATIENT MEDICARE (WNR) MEDICARE (M) PART B Jan 11, 2003 PART B [id number] HEDY OLIVAREZ PATIENT MEDICARE (WNR) MEDICARE (M) PART B Jan 11, 2003 PART B [id number] HEDY OLIVAREZ PATIENT MEDICARE (WNR) MEDICARE (M) PART B Jan 11, 2003 PART B [id number] HEDY OLIVAREZ PATIENT MEDICARE (WNR) MEDICARE (M) PART A Nov 13, 2000 PART A [id number] HEDY OLIVAREZ PATIENT MEDICARE (WNR) MEDICARE (M) PART A Nov 13, 2000 PART A [id number] HEDY OLIVAREZ PATIENT MEDICARE (WNR) MEDICARE (M) PART A Nov 13, 2000 PART A [id number] HEDY OLIVAREZ PATIENT MEDICARE (WNR) MEDICARE (M) PART A Nov 13, 2000 PART A [id number] HEDY OLIVAREZ PATIENT MEDICARE (WNR) MEDICARE (M) PART A Jul 14, 1995 PART A [id number] HEDY OLIVAREZ PATIENT MEDICARE (WNR) MEDICARE (M) PART A Jul 14, 1995 PART A [id number] HEDY OLIVAREZ PATIENT MEDICARE (WNR) MEDICARE (M) PART A Jul 14, 1995 PART A [id number] HEDY OLIVAREZ PATIENT MEDICARE (WNR) MEDICARE (M) PART B Jul 14, 1995 PART B [id number] HEDY OLIVAREZ PATIENT MEDICARE (WNR) MEDICARE (M) PART B Jul 14, 1995 PART B [id number] HEDY OLIVAREZ PATIENT MEDICARE (WNR) MEDICARE (M) PART A Jul 14, 1995 PART A [id number] HEDY OLIVAREZ PATIENT MEDICARE (WNR) MEDICARE (M) PART A Jul 14, 1995 PART A [id number] HEDY OLIVAREZ PATIENT MEDICARE (WNR) MEDICARE (M) PART A Jul 14, 1995 PART A [id number] HEDY OLIVAREZ PATIENT MEDICARE (WNR) MEDICARE (M) PART A Jul 14, 1995 PART A [id number] HEDY OLIVAREZ PATIENT MEDICARE (WNR) MEDICARE (M) PART A Jul 14, 1995 PART A [id number] HEDY OLIVAREZ PATIENT MEDICARE (WNR) MEDICARE (M) PART A Jul 14, 1995 PART A [id number] HEDY OLIVAREZ PATIENT MEDICARE (WNR) MEDICARE (M) PART A Jul 14, 1995 PART A [id number] HEDY OLIVAREZ PATIENT MEDICARE (WNR) MEDICARE (M) PART A Jul 14, 1995 PART A [id number] HEDY OLIVAREZ PATIENT MEDICARE PART D (WNR) MEDICARE (M) PART D Oct 13, 2022 PART D [id number] HEDY OLIVAREZ PATIENT [facility] MCR (WNR) MEDICARE ADVANTAGE MCR (WNR) Oct 13, 2022 [id number] HEDY OLIVAREZ PATIENT Selected Encounter This section includes the information on record at [place] for the Encounter. Date/Time Encounter Type Encounter Description Reason Pro vider Source Sep 16, 2024 09:00 AM Outpatient Encounter PRIMARY CARE/MEDICINE IHE Encounter Template Text not used by AR Plan of Treatment: Future Appointments (+ 6 months) and Future Tests (+/- 45 days) The Plan of Treatment section includes future care activities for the patient from all [facility]. This section includes future appointments and future orders which are active, pending or scheduled. Future Appointments This section includes appointments that were scheduled to occur 6 months from the date of the Encounter, up to a maximum of 20 appointments. The data comes from all [place] treatment facilities. Appointment Date/Time Appointment Type Appointme nt Facility Name Sep 17, 2024 11:00 AM AMBULATORY - PSYCHIATRY [facility] Oct 14, 2024 11:30 AM AMBULATORY - PSYCHIATRY [facility] Oct 29, 2024 08:30 AM AMBULATORY - PSYCHIATRY [facility] Nov 04, 2024 02:00 PM AMBULATORY - PSYCHIATRY [facility] Nov 15, 2024 01:00 PM AMBULATORY - MEDICINE [facility] NAMED [facility] Nov 19, 2024 08:00 AM AMBULATORY - PSYCHIATRY [facility] Nov 26, 2024 10:00 AM AMBULATORY - PSYCHIATRY [facility] Dec 24, 2024 11:00 AM AMBULATORY - PSYCHIATRY [facility] Dec 31, 2024 09:00 AM AMBULATORY - PSYCHIATRY [facility] Dec 31, 2024 02:30 PM AMBULATORY - PSYCHIATRY [facility] Jan 07, 2025 10:00 AM AMBULATORY - PSYCHIATRY [facility] Jan 28, 2025 10:00 AM AMBULATORY - PSYCHIATRY [facility] Jan 28, 2025 11:50 AM AMBULATORY - MEDICINE [facility] NAMED [facility] Feb 07, 2025 08:30 AM AMBULATORY - MEDICINE [facility] NAMED [facility] Feb 13, 2025 08:00 AM AMBULATORY - PSYCHIATRY [facility] Feb 25, 2025 11:00 AM AMBULATORY - PSYCHIATRY [facility] Feb 27, 2025 11:00 AM AMBULATORY - SURGERY JENNIFER Bernice [facility] Active, Pending, and Scheduled Orders This section includes a listing of several types of active, pending, and scheduled orders, including clinic medications orders, diagnostic test orders, procedure orders and consult orders; where the start date of the order is 45 days before the date of the Encounter or 45 days after the date of theEncounter. The data comes from all [place] treatment facilities. Test Date/Time Test Type Test Details Facility Name Sep 16, 2024 12:00 AM Laboratory - Chemi stry Order OCCULT BLOOD,FIT X1 SCREEN STOOL FECES SP FORMER[facility] NAMED [facility] Lab Results: +/- 30 days of the encounter This section includes the Chemistry and Hematology Lab Results on record with AR for the patient. Radiology Reports and Pathology Reports are provided separately, in subsequent sections. Lab Results This section contains the Chemistry/Hematology Results that were resulted 30 days before or 30 daysafter the date of the Encounter. 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 The following drugs were detected: Amphetamine Methamphetamine Oxycodone Naproxen Gabapentin Acetaminophen Nicotine Cotinine Caffeine This gas chromatography of urine will detect a variety of therapeutic and potentially abused drugs including antidepressants, anticonvulsants, sedatives, opiates, and pain medications. This test was developed and its performance characteristics validated by the laboratory. It has not been cleared nor approved by the U.S. Food and Drug Administration. Ordering Provider: MARCIA CARTY Report Released Date/Time: Sep 17, 2024 10:51 AM Reporting Lab: [place] [id number] [facility] [address] Performing Lab: [facility] Dept of Pathology [facility] [id number] GCMS SCREEN,U/M comment Sep 26, 2024 01:11 PM [facility] NAMED [facility] TOX SCREEN ([facility]) URINE,RANDOM Specimen Type : URINE,RANDOM Comment: ~For Test: GCMS SCREEN,U/M ~Amphetamine metabolites Ordering Provider: MARCIA CARTY Report Released Date/Time: Sep 17, 2024 10:51 AM Reporting Lab: [address] [id number] Performing Lab: [address] [address] BENZODIAZEPINES Not Detected Not Detecte d CANNABINOIDS,URINE Not Detected Not Dete cted OPIATES,URINE DETECTED H Not Detected AMPHETAMINES DETECTED H Not Detected BARBITURATES Not Detected Not Detected COCAINE,URINE Not Detected Not Detected CREATININE,VERIFY 152 mg/dL URINE METHADONE Not Detected Not Detecte d URINE OXYCODONE DETECTED H Not Detected URINE BUPRENORHINE DETECTED H Not Detected URINE FENTANYL Not Detected Not Detected Sep 26, 2024 01:11 PM [facility] NAMED [facility] BASIC METABOLIC PANEL BLOOD Specimen Type: BL OOD No comment entered. Ordering Provider: HAYLIE VALLE Report Released Date/Time: Sep 26, 2024 11:19 AM Reporting Lab: [address] [address] Performing Lab: [address] [address] CREATININE 1.2 mg/dL 0.6-1.3 UREA NITROGEN 24 mg/dL 7-25 GLUCOSE 100 mg/dL 74-109 SODIUM 137 mmol/L 136-145 POTASSIUM 4.0 mmol/L 3.5-5.1 CHLORIDE 101 mmol/L 98-107 CO2 32 mmol/L H 21-31 CALCIUM 9.6 mg/dL 8.6-10.3 EGFR 67 mL/min/{1.73_m2} Sep 26, 2024 01:11 PM [facility] TSH BLOOD Specimen Type: BLOOD Comment: ~==ADD-ON TO BLOOD ALREADY DRAWN. MOST RECENT SPECIMEN. Ordering Provider: HAYLIE VALLE Report Released Date/Time: Sep 26, 2024 01:27 PM Reporting Lab: [address] [address] Performing Lab: [address] [address] TSH 1.340 u[IU]/mL 0.45-5.33 Social History: Smoking Status (Most current) and Tobacco Use (All prior to encounter date) This section includes the most current, and the historical, smoking and tobacco- related health factors from the [place] facility where the Encounter took place. Current Smoking Status This section includes the most current smoking, or tobacco-related health factor, from the AR facility where the Encounter took place. Date/Time Current Smoking Status Comment Rom ity Feb 07, 2023 11:00 AM VA-TOBACCO USER EVERY DAY FORMERLY NAMED [facility] Tobacco Use History This section includes a history of the smoking, or tobacco-related health factors, that were collected on or before the date of the Encounter. The data comes from the AR facility where the Encounter took place. 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 NAMED [facility] Feb 07, 2023 11:00 AM VA-TOBACCO USE MED NOTIFY PROVIDER [facility]MER[facility] NAMED [facility] Feb 07, 2023 11:00 AM VA-TOBACCO USE WI 30 MIN OF WAKEUP FORMER[facility] NAMED [facility] Feb 07, 2023 11:00 AM VA-TOBACCO USER EVERY DAY [facility] NAMED [facility] Feb 16, 2022 01:00 PM VA-TOBACCO USE 30 YEARS OR MORE FORMERLY NAMED [facility] Feb 16, 2022 01:00 PM VA-TOBACCO USE ADVICE [facility]MER[facility] NAMED [facility] Feb 16, 2022 01:00 PM 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 FORMERLY NAMED [facility] Feb 16, 2022 01:00 PM VA-TOBACCO USE MED NO [facility] NAMED [facility] Feb 16, 2022 01:00 PM VA-TOBACCO USE WI 30 MIN OF WAKEUP [facility] NAMED [facility] Feb 16, 2022 01:00 PM VA-TOBACCO USER EVERY DAY [facility]MER[facility] NAMED [facility] Jun 21, 2020 04:12 AM CURRENT TOBACCO USER [facility] NAMED [facility] Jun 21, 2020 04:12 AM TOBACCO OFFERRED S [facility] NAMED [facility] Jun 09, 2020 01:24 PM CURRENT TOBACCO USER [facility] NAMED [facility] Jun 09, 2020 01:24 PM TOBACCO OFFERRED S [facility] NAM[facility] Jul 24, 2019 01:11 PM VA-TOBACCO USE 30 YEARS OR MORE FORMERLY NAMED [facility] Jul 24, 2019 01:11 PM VA-TOBACCO USE ADVICE [facility] NAMED [facility] Jul 24, 2019 01:11 PM 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 [facility]MER[facility] NAMED [facility] Jul 24, 2019 01:11 PM VA-TOBACCO USE MED NO [facility] NAMED [facility] Jul 24, 2019 01:11 PM VA-TOBACCO USE WI 30 MIN OF WAKEUP [facility] NAMED [facility] Jul 24, 2019 01:11 PM VA-TOBACCO USER EVERY DAY [facility]MER[facility] NAMED [facility] March 23, 2018 09:34 AM SMOKING CESSATION NO [facility] March 16, 2018 08:14 PM CURRENT TOBACCO USER [facility] NAMED [facility] March 16, 2018 08:14 PM [facility] March 16, 2018 08:14 [facility] NAMED [facility] Advance Directives: All historical and current Section Date Range: From patient's date of to the date document was created. This section includes ALL of a patient's completed or amended [place] Advance and Rescinded Directives. The entries below indicate that a directive exists for the patient, but an actual copy is not included with this document. The data comes from all [facility]. Date Advance Directives Provider Source Nov 28, 2017 ADVANCE DIRECTIVE DISCUSSION JOSE ALEJANDRO BULLARD [facility] March 16, 2015 ADVANCE DIRECTIVE CASEY FELIX [facility] Jun 30, 2014 ADVANCE DIRECTIVE DISCUSSION IVONE TOLEDO [facility] Jan 21, 2003 ADVANCE DIRECTIVE DISCUSSION TJ MERCADO Jan 07, 2003 ADVANCE DIRECTIVE DISCUSSION SANCHEZ BROWN Encounter Notes: All associated encounter notes This section contains the clinical notes associated to the Encounter. Date/Time Encounter Note(s) Provider Source Sep 16, 2024 04:48 PM PRIMARY CARE NURSI NG NOTE: LOCAL TITLE: PRIMARY CARE PREVENTIVE HEALTH STANDARD TITLE: PRIMARY CARE NURSING NOTE DATE OF NOTE: SEP 16, 2024@16:48 ENTRY DATE: SEP 16, 2024@16:48:32 AUTHOR: MICHI HOPKINS EXP COSIGNER: URGENCY: STATUS: COMPLETED FIT Kit DUE for FIT Kit. Initial FIT Kit: FIT Kit and letter mailed to . Instructions mailed with Kit. /aren/ MICHI HOPKINS LPN Signed: 09/16/2024 16:48 MICHI HOPKINS FORMERLY NAMED [facility]
--- OUTSIDE RECORDS SUMMARY | 2024-09-17 07:00 | XMS_ITS | Encounter Summary ---
Author Name [facility] Organization [facility] Address [address] [place] [id number] Care Team Providers Care Painter And Body Work Name Role Phone SEAN TRACY Primary Care Provider UnavailLINDA Krishna Unavailable Unavailable JEAN CLAUDE THAO Primary Care Provider UnavailTANSEHA De Leon Unavailable Unavailable YULIA SEGURA Unavailable [...] Lemon's Name Patient's Relationship to Policy Lemon [facility] (WN) MEDICARE ADVANTAGE [facility] ([facility]) March 13, 2017 [id number] HEDY OLIVAREZ PATIENT MEDICARE (WN) MEDICARE (M) PART B March 13, 2014 PART B [id number] HEDY OLIVAREZ PATIENT MEDICARE (WNR) MEDICARE (M) PART B March 13, 2014 PART B [id number] EHDY OLIVAREZ PATIENT MEDICARE (WN) MEDICARE (M) PART B March 13, 2014 PART B [id number] HEDY OLIVAREZ PATIENT MEDICARE (WNR) MEDICARE (M) PART B March 13, 2014 PART B [id number] HEDY OLIVAREZ PATIENT MEDICARE (WNR) MEDICARE (M) PART B March 13, 2014 PART B [id number] HEDY OLIVAREZ PATIENT MEDICARE (WNR) MEDICARE (M) PART B March 13, 2014 PART B [id number] HEDY LOIVAREZ PATIENT MEDICARE (WNR) MEDICARE (M) PART B March 13, 2014 PART B [id number] HEDY OLIVAREZ PATIENT MEDICARE (WNR) MEDICARE (M) PART B March 13, 2014 PART B [id number] HEDY OLIVAREZ PATIENT MEDICARE (WNR) MEDICARE (M) PART B March 13, 2014 PART B [id number] HEDY OLIVAREZ PATIENT MEDICARE (WNR) MEDICARE (M) PART B Jan 11, 2003 PART B [id number] HEDY OLIVAREZ PATIENT MEDICARE (WNR) MEDICARE (M) PART B Jan 11, 2003 PART B [id number] HEDY OLIVAREZ PATIENT MEDICARE (WNR) MEDICARE (M) PART B Jan 11, 2003 PART B [id number] HEDY OLIVAREZ PATIENT MEDICARE (WNR) MEDICARE (M) PART B Jan 11, 2003 PART B [id number] HEDY OLIVAREZ PATIENT MEDICARE (WNR) MEDICARE (M) PART A Nov 13, 2000 PART A [id number] HEDY OLIVAREZ PATIENT MEDICARE (WNR) MEDICARE (M) PART A Nov 13, 2000 PART A [id number] HEDY OLIVAREZ PATIENT MEDICARE (WNR) MEDICARE (M) PART A Nov 13, 2000 PART A [id number] HEDY OLIVAREZ PATIENT MEDICARE (WNR) MEDICARE (M) PART A Nov 13, 2000 PART A [id number] HEDY OLIVAREZ PATIENT MEDICARE (WNR) MEDICARE (M) PART A Jul 14, 1995 PART A [id number] HEDY OLIVAREZ PATIENT MEDICARE (WNR) MEDICARE (M) PART A Jul 14, 1995 PART A [id number] HEDY OLIVAREZ PATIENT MEDICARE (WNR) MEDICARE (M) PART A Jul 14, 1995 PART A [id number] HEDY OLIVAREZ PATIENT MEDICARE (WNR) MEDICARE (M) PART A Jul 14, 1995 PART A [id number] HEDY OLIVAREZ PATIENT MEDICARE (WNR) MEDICARE (M) PART A Jul 14, 1995 PART A [id number] HEDY OLIVAREZ PATIENT MEDICARE (WNR) MEDICARE (M) PART B Jul 14, 1995 PART B [id number] HEDY OLIVAREZ PATIENT MEDICARE (WNR) MEDICARE (M) PART B Jul 14, 1995 PART B [id number] HEDY OLIVAREZ PATIENT MEDICARE (WNR) MEDICARE (M) PART A Jul 14, 1995 PART A [id number] HEDY OLIVAREZ PATIENT MEDICARE (WNR) MEDICARE (M) PART A Jul 14, 1995 PART A [id number] HEDY OLIVAREZ PATIENT MEDICARE (WNR) MEDICARE (M) PART A Jul 14, 1995 PART A [id number] HEDY OLIVAREZ PATIENT MEDICARE (WNR) MEDICARE (M) PART A Jul 14, 1995 PART A [id number] HEDY OLIVAREZ PATIENT MEDICARE (WNR) MEDICARE (M) PART A Jul 14, 1995 PART A [id number] HEDY OLIVAREZ PATIENT MEDICARE (WNR) MEDICARE (M) PART A Jul 14, 1995 PART A [id number] HEDY OLIVAREZ PATIENT MEDICARE PART D (WNR) MEDICARE (M) PART D Oct 13, 2022 PART D [id number] HEDY OLIVAREZ PATIENT [facility] MCR (WNR) MEDICARE ADVANTAGE MCR (WNR) Oct 13, 2022 [id number] HEDY OLIVAREZ PATIENT Selected Encounter This section includes the information on record at [place] for the Encounter. Date/Time Encounter Type Encounter Description Reason Pro vider Source Sep 17, 2024 11:00 AM Outpatient Encounter SUBSTANCE USE DISORDER IND IHE Encounter Template Text not used by [place] Plan of Treatment: Future Appointments (+ 6 months) and Future Tests (+/- 45 days) The Plan of Treatment section includes future care activities for the [facility] This section includes future appointments and future orders which are active, pending or scheduled. Future Appointments This section includes appointments that were scheduled to occur 6 months from the date of the Encounter, up to a maximum of 20 appointments. The data comes from all [place] treatment facilities. Appointment Date/Time Appointment Type Appointme nt Facility Name Oct 14, 2024 11:30 AM AMBULATORY - PSYCHIATRY [facility] Oct 29, 2024 08:30 AM AMBULATORY - PSYCHIATRY [facility] Nov 04, 2024 02:00 PM AMBULATORY - PSYCHIATRY [facility] Nov 15, 2024 01:00 PM AMBULATORY - MEDICINE [facility] Nov 19, 2024 08:00 AM AMBULATORY - PSYCHIATRY [facility] Nov 26, 2024 10:00 AM AMBULATORY - PSYCHIATRY [facility] Dec 24, 2024 11:00 AM AMBULATORY - PSYCHIATRY [facility] Dec 31, 2024 09:00 AM AMBULATORY - PSYCHIATRY [facility] Dec 31, 2024 02:30 PM AMBULATORY - PSYCHIATRY [facility] Jan 07, 2025 10:00 AM AMBULATORY - PSYCHIATRY [facility] Jan 28, 2025 10:00 AM AMBULATORY - PSYCHIATRY [facility] Jan 28, 2025 11:50 AM AMBULATORY - MEDICINE [facility] Feb 07, 2025 08:30 AM AMBULATORY - MEDICINE [facility] Feb 13, 2025 08:00 AM AMBULATORY - PSYCHIATRY [facility] Feb 25, 2025 11:00 AM AMBULATORY - PSYCHIATRY [facility] Feb 27, 2025 11:00 AM AMBULATORY - SURGERY [facility] Active, Pending, and Scheduled Orders This section includes a listing of several types of active, pending, and scheduled orders, including clinic medications orders, diagnostic test orders, procedure orders and consult orders; where the start date of the order is 45 days before the date of the Encounter or 45 days after the date of theEncounter. The data comes from all [place] treatment facilities. Test Date/Time Test Type Test Details Facility Name Sep 16, 2024 12:00 AM Laboratory - Chemi stry Order OCCULT BLOOD,FIT X1 SCREEN STOOL FECES SP [facility] Lab Results: +/- 30 days of the [...] Type Comment Sep 26, 2024 01:11 PM [facility] GCMS SCREEN,U/M URINE,RA NDOM Specimen Type: URINE,RANDOM [...] Sep 17, 2024 10:51 AM Reporting Lab: [place] [id number] [facility] [id number] Performing Lab: [facility] Dept of Pathology [facility] [id number] GCMS SCREEN,U/M comment Sep 26, 2024 01:11 PM [facility] TOX SCREEN ([facility]) URINE,RANDOM Specimen Type : URINE,RANDOM Comment: ~For Test: GCMS SCREEN,U/M ~Amphetamine metabolites Ordering Provider: MARCIA CARTY Report Released Date/Time: Sep 17, 2024 10:51 AM Reporting Lab: [address] [address] Performing Lab: [address] [address] BENZODIAZEPINES Not Detected Not Detecte d CANNABINOIDS,URINE [...] Not Detected Sep 26, 2024 01:11 PM [facility] BASIC METABOLIC PANEL BLOOD Specimen Type: BL OOD No comment entered. Ordering Provider: HAYLIE VALLE Report Released Date/Time: Sep 26, 2024 11:19 AM Reporting Lab: [address] [address] Performing Lab: [address] [address] CREATININE 1.2 mg/dL 0.6-1.3 UREA NITROGEN 24 mg/dL 7-25 GLUCOSE 100 mg/dL 74-109 SODIUM 137 mmol/L 136-145 POTASSIUM 4.0 mmol/L 3.5-5.1 CHLORIDE 101 mmol/L 98-107 CO2 32 mmol/L H 21-31 CALCIUM 9.6 mg/dL 8.6-10.3 EGFR 67 mL/min/{1.73_m2} Sep 26, 2024 01:11 PM [facility] [place] 2] TSH BLOOD Specimen Type: BLOOD Comment: ~==ADD-ON TO BLOOD ALREADY DRAWN. MOST RECENT SPECIMEN. Ordering Provider: HAYLIE VALLE Report Released Date/Time: Sep 26, 2024 01:27 PM Reporting Lab: [address] [address] Performing Lab: [address] [address] TSH 1.340 u[IU]/mL 0.45-5.33 Social History: Smoking [...] 2023 11:00 AM VA-TOBACCO USER EVERY DAY [facility] Tobacco Use History This section includes a history of the smoking, or tobacco-related health factors, that were collected on or before the date of the Encounter. The data comes from the [place] facility where the Encounter took place. Date/Time Smoking Status/Tobacco Use Comment F acility Feb 07, 2023 11:00 AM VA-TOBACCO USE ADVICE [facility] Feb 07, 2023 11:00 AM VA-TOBACCO USE DOCUMENTATION ENGINEER YES [facility] Feb 07, 2023 11:00 AM VA-TOBACCO USE MED NOTIFY PROVIDER [facility] Feb 07, 2023 11:00 AM VA-TOBACCO USE WI 30 MIN OF WAKEUP [facility] Feb 07, 2023 11:00 AM VA-TOBACCO USER EVERY DAY [facility] Feb 16, 2022 01:00 PM VA-TOBACCO USE 30 YEARS OR MORE [facility] Feb 16, 2022 01:00 PM VA-TOBACCO USE ADVICE [facility] Feb 16, 2022 01:00 PM VA-TOBACCO USE DOCUMENTATION ENGINEER NO [facility] Feb 16, 2022 01:00 PM VA-TOBACCO USE MED NO [facility] Feb 16, 2022 01:00 PM VA-TOBACCO USE WI 30 MIN OF WAKEUP [facility] Feb 16, 2022 01:00 PM VA-TOBACCO USER EVERY DAY [facility] Jun 21, 2020 04:12 AM CURRENT TOBACCO USER [facility] Jun 21, 2020 04:12 AM TOBACCO OFFERRED S TOP SMOKING CLINIC [facility] Jun 09, 2020 01:24 PM CURRENT TOBACCO USER [facility] Jun 09, 2020 01:24 PM TOBACCO OFFERRED S TOP SMOKING CLINIC [facility] Jul 24, 2019 01:11 PM VA-TOBACCO USE 30 YEARS OR MORE [facility] Jul 24, 2019 01:11 PM VA-TOBACCO USE ADVICE [facility] Jul 24, 2019 01:11 PM VA-TOBACCO USE DOCUMENTATION ENGINEER NO [facility] Jul 24, 2019 01:11 PM VA-TOBACCO USE MED NO [facility] Jul 24, 2019 01:11 PM VA-TOBACCO USE WI 30 MIN OF WAKEUP [facility] Jul 24, 2019 01:11 PM VA-TOBACCO USER EVERY DAY [facility] March 23, 2018 09:34 AM SMOKING CESSATION NO [facility] March 16, 2018 08:14 PM CURRENT TOBACCO USER [facility] March 16, 2018 08:14 PM SMOKER - OFFERRED MEDS (PROVIDER) [facility] March 16, 2018 08:14 PM TOBACCO OFFERRED S [facility] SMOKING CLINIC [facility] Advance Directives: All historical and current Section Date Range: From patient's date of to the date document was created. This section includes ALL of a patient's completed or amended [place] Advance and Rescinded Directives. The entries below indicate that a directive exists for the patient, but an actual copy is not included with this document. The data comes from all [place] facilities. Date Advance Directives Provider Source Nov 28, 2017 ADVANCE DIRECTIVE DISCUSSION JOSE ALEJANDRO BULLARD [facility] March 16, 2015 ADVANCE DIRECTIVE CASEY [facility]IX [facility] Jun 30, 2014 ADVANCE DIRECTIVE DISCUSSION IVONE [facility] Jan 21, 2003 ADVANCE DIRECTIVE DISCUSSION TJ MERCADO Jan 07, 2003 ADVANCE DIRECTIVE DISCUSSION SANCHEZ BROWN Encounter Notes: All associated encounter notes This section contains the clinical notes associated to the Encounter. Date/Time Encounter Note(s) Provider Source Sep 17, 2024 02:58 PM NO SHOW NOTE: LOCAL TITLE: PSYCHIATRY NO SHOW - CANCEL - RESCHEDULE STANDARD TITLE: NO SHOW NOTE DATE OF NOTE: SEP 17, 2024@14:58 ENTRY DATE: SEP 17, 2024@14:58:19 AUTHOR: MARCIA CARTY EXP COSIGNER: URGENCY: STATUS: COMPLETED Note Title: PSYCHIATRY NO SHOW - CANCEL - RESCHEDULE No Show Reason for Cancellation: Per A Notice 2019-09(2), For mental health appointments, (inclusive of consults, return to clinic orders, and failure to report (no-show)), the minimum scheduling effort for scheduling/rescheduling totals of four attempts; three documented contact attempts by telephone on separate days, followed by a letter. Devin does NOT have a [facility], and did not attend scheduled appointment on Sep@11:00. was NOT reachable by phone with the following results: Called at only available phone number, unable to connect, unable to leave message. /es/ MARCIA CARTY MD Staff Physician, [facility] Signed: 09/17/2024 14:59 MARCIA CARTY [facility]
--- OUTSIDE RECORDS SUMMARY | 2024-09-26 07:38 | XMS_ITS ---
Author Name [facility] ([place]) Organization [facility] ([place]) Address [address] [place] [id number] Care Team Providers Care Process Specialist Name Role Phone SEAN TRACY Primary [...] Lemon's Name Patient's Relationship to Policy Lemon [facility] (WN) MEDICARE ADVANTAGE [facility] March 13, 2017 [id number] HEDY OLIVAREZ PATIENT MEDICARE (WN) MEDICARE (M) PART B March 13, 2014 PART B [id number] HEDY OLIVAREZ PATIENT MEDICARE (WNR) MEDICARE (M) PART B March 13, 2014 PART B [id number] [phone] HEDY OLIVAREZ PATIENT MEDICARE (WN) MEDICARE (M) PART B March 13, 2014 PART B [id number] HEDY OLIVAREZ PATIENT MEDICARE (WNR) MEDICARE (M) PART B March 13, 2014 PART B [id number] HEDY OLIVAREZ PATIENT MEDICARE (WNR) MEDICARE (M) PART B March 13, 2014 PART B [id number] HEDY OLIVAREZ PATIENT MEDICARE (WNR) MEDICARE (M) PART B March 13, 2014 PART B [id number] HEDY OLIVAREZ PATIENT MEDICARE (WNR) MEDICARE (M) PART B March 13, 2014 PART B [id number] HEDY OLIVAREZ PATIENT MEDICARE (WNR) MEDICARE (M) PART B March 13, 2014 PART B [id number] HEDY OLIVAREZ PATIENT MEDICARE (WNR) MEDICARE (M) PART B March 13, 2014 PART B [id number] HEDY OLIVAREZ PATIENT MEDICARE (WNR) MEDICARE (M) PART B Jan 11, 2003 PART B [id number] HEDY OLIVAREZ PATIENT MEDICARE (WNR) MEDICARE (M) PART B Jan 11, 2003 PART B [id number] HEDY OLIVAREZ PATIENT MEDICARE (WNR) MEDICARE (M) PART B Jan 11, 2003 PART B [id number] HEDY OLIVAREZ PATIENT MEDICARE (WNR) MEDICARE (M) PART B Jan 11, 2003 PART B [id number] HEDY OLIVAREZ PATIENT MEDICARE (WNR) MEDICARE (M) PART A Nov 13, 2000 PART A [id number] HEDY OLIVAREZ PATIENT MEDICARE (WNR) MEDICARE (M) PART A Nov 13, 2000 PART A [id number] HEDY OLIVAREZ PATIENT MEDICARE (WNR) MEDICARE (M) PART A Nov 13, 2000 PART A [id number] HEDY OLIVAREZ PATIENT MEDICARE (WNR) MEDICARE (M) PART A Nov 13, 2000 PART A [id number] HEDY OLVIAREZ PATIENT MEDICARE (WNR) MEDICARE (M) PART A Jul 14, 1995 PART A [id number] HEDY OLIVAREZ PATIENT MEDICARE (WNR) MEDICARE (M) PART A Jul 14, 1995 PART A [id number] HEDY OLIVAREZ PATIENT MEDICARE (WNR) MEDICARE (M) PART A Jul 14, 1995 PART A [id number] HEDY OLIVAREZ PATIENT MEDICARE (WNR) MEDICARE (M) PART A Jul 14, 1995 PART A [id number] HEDY OLIVAREZ PATIENT MEDICARE (WNR) MEDICARE (M) PART A Jul 14, 1995 PART A [id number] HEDY OLIVAREZ PATIENT MEDICARE (WNR) MEDICARE (M) PART B Jul 14, 1995 PART B [id number] HEDY OLIVAREZ PATIENT MEDICARE (WNR) MEDICARE (M) PART B Jul 14, 1995 PART B [id number] HEDY OLIVAREZ PATIENT MEDICARE (WNR) MEDICARE (M) PART A Jul 14, 1995 PART A [id number] HEDY OLIVAREZ PATIENT MEDICARE (WNR) MEDICARE (M) PART A Jul 14, 1995 PART A [id number] HEDY OLIVAREZ PATIENT MEDICARE (WNR) MEDICARE (M) PART A Jul 14, 1995 PART A [id number] HEDY OLIVAREZ PATIENT MEDICARE (WNR) MEDICARE (M) PART A Jul 14, 1995 PART A [id number] HEDY OLIVAREZ PATIENT MEDICARE (WNR) MEDICARE (M) PART A Jul 14, 1995 PART A [id number] HEDY OLIVAREZ PATIENT MEDICARE (WNR) MEDICARE (M) PART A Jul 14, 1995 PART A [id number] HEDY OLIVAREZ PATIENT MEDICARE PART D (WNR) MEDICARE (M) PART D Oct 13, 2022 PART D [id number] HEDY OLIVAREZ PATIENT [facility] MCR (WNR) MEDICARE ADVANTAGE MCR (WNR) Oct 13, 2022 [id number] HEDY OLIVAREZ PATIENT Selected Encounter This section includes the information on record at [place] for the Encounter. Date/Time Encounter Type Encounter Description Reason Pro vider Source Sep 26, 2024 11:38 AM Outpatient Encounter SUBSTANCE USE DISORDER IND IHE Encounter Template Text not used by NM Plan of Treatment: Future Appointments (+ 6 months) and Future Tests (+/- 45 days) The Plan of Treatment section includes future care activities for the patient from all [place] [facility]. This section includes future appointments and future orders which are active, pending or scheduled. Future Appointments This section includes appointments that were scheduled to occur 6 months from the date of the Encounter, up to a maximum of 20 appointments. The data comes from all [place] treatment facilities. Appointment Date/Time Appointment Type Appointme nt Facility Name Oct 14, 2024 11:30 AM AMBULATORY - PSYCHIATRY [facility] Oct 29, 2024 08:30 AM AMBULATORY - PSYCHIATRY [facility] Nov 04, 2024 02:00 PM AMBULATORY - PSYCHIATRY [facility] Nov 15, 2024 01:00 PM AMBULATORY - MEDICINE [facility] Nov 19, 2024 08:00 AM AMBULATORY - PSYCHIATRY [facility] Nov 26, 2024 10:00 AM AMBULATORY - PSYCHIATRY [facility] Dec 24, 2024 11:00 AM AMBULATORY - PSYCHIATRY [facility] Dec 31, 2024 09:00 AM AMBULATORY - PSYCHIATRY [facility] Dec 31, 2024 02:30 PM AMBULATORY - PSYCHIATRY [facility] Jan 07, 2025 10:00 AM AMBULATORY - PSYCHIATRY [facility] Jan 28, 2025 10:00 AM AMBULATORY - PSYCHIATRY [facility] Jan 28, 2025 11:50 AM AMBULATORY - MEDICINE [facility] Feb 07, 2025 08:30 AM AMBULATORY - MEDICINE [facility] Feb 13, 2025 08:00 AM AMBULATORY - PSYCHIATRY [facility] Feb 25, 2025 11:00 AM AMBULATORY - PSYCHIATRY [facility] Feb 27, 2025 11:00 AM AMBULATORY - SURGERY [facility] March 25, 2025 10:30 AM AMBULATORY - PSYCHIATRY [facility] Active, Pending, and Scheduled Orders This section includes a listing of several types of active, pending, and scheduled orders, including clinic medications orders, diagnostic test orders, procedure orders and consult orders; where the start date of the order is 45 days before the date of the Encounter or 45 days after the date of theEncounter. The data comes from all [place] treatment facilities. Test Date/Time Test Type Test Details Facility Name Sep 16, 2024 12:00 AM Laboratory - Chemi stry Order OCCULT BLOOD,FIT X1 SCREEN STOOL FECES SP [facility] Lab Results: +/- 30 days of the encounter This section includes the Chemistry and Hematology Lab Results on record with [place] for the patient. Radiology Reports and Pathology Reports are provided separately, in subsequent sections. Lab Results This section contains the Chemistry/Hematology Results that were resulted 30 days before or 30 daysafter the date of the Encounter. Date/Time Source Result Type Result - Unit Interpretation Reference Range Specimen Type Comment Sep 26, 2024 01:11 PM [facility] GCMS SCREEN,U/M URINE,RA NDOM Specimen [...] Sep 17, 2024 10:51 AM Reporting Lab: [place] [id number] [facility] [id number] Performing Lab: [facility] Dept of Pathology [facility] [id number] GCMS SCREEN,U/M comment Sep 26, 2024 01:11 PM [facility] TOX SCREEN ([facility]) URINE,RANDOM Specimen Type : URINE,RANDOM Comment: ~For Test: GCMS SCREEN,U/M ~Amphetamine metabolites Ordering Provider: MARCIA CARTY Report Released Date/Time: Sep 17, 2024 10:51 AM Reporting Lab: [address] [address] Performing Lab: [address] [address] BENZODIAZEPINES Not Detected Not Detecte d CANNABINOIDS,URINE [...] Not Detected Sep 26, 2024 01:11 PM [facility] BASIC METABOLIC PANEL BLOOD Specimen Type: BL OOD No comment entered. Ordering Provider: HAYLIE VALLE Report Released Date/Time: Sep 26, 2024 11:19 AM Reporting Lab: [address] [address] Performing Lab: [address] [address] CREATININE 1.2 mg/dL 0.6-1.3 UREA NITROGEN 24 mg/dL 7-25 GLUCOSE 100 mg/dL 74-109 SODIUM 137 mmol/L 136-145 POTASSIUM 4.0 mmol/L 3.5-5.1 CHLORIDE 101 mmol/L 98-107 CO2 32 mmol/L H 21-31 CALCIUM 9.6 mg/dL 8.6-10.3 EGFR 67 mL/min/{1.73_m2} Sep 26, 2024 01:11 PM [facility] TSH BLOOD Specimen Type: BLOOD Comment: ~==ADD-ON TO BLOOD ALREADY DRAWN. MOST RECENT SPECIMEN. Ordering Provider: HAYLIE VALLE Report Released Date/Time: Sep 26, 2024 01:27 PM Reporting Lab: [address] [phone] Performing Lab: [address] [address] TSH 1.340 u[IU]/mL 0.45-5.33 Social History: Smoking Status (Most current) and Tobacco Use (All prior to encounter date) This section includes the most current, and the historical, smoking and tobacco- related health factors from the [place] facility where the Encounter took place. Current Smoking Status This section includes the most current smoking, or tobacco-related health factor, from the [place] facility where the Encounter took place. Date/Time Current Smoking Status Comment Rom ity Feb 07, 2023 11:00 AM VA-TOBACCO USER EVERY DAY [facility] Tobacco Use History This section includes a history of the smoking, or tobacco-related health factors, that were collected on or before the date of the Encounter. The data comes from the [place] facility where the Encounter took place. Date/Time Smoking Status/Tobacco Use Comment F acility Feb 07, 2023 11:00 AM VA-TOBACCO USE ADVICE [facility] Feb 07, 2023 11:00 AM VA-TOBACCO USE PATTERN ATTENDANT YES [facility] Feb 07, 2023 11:00 AM VA-TOBACCO USE MED NOTIFY PROVIDER [facility] Feb 07, 2023 11:00 AM VA-TOBACCO USE [place] 30 MIN OF WAKEUP [facility] Feb 07, 2023 11:00 AM VA-TOBACCO USER EVERY DAY [facility] Feb 16, 2022 01:00 PM VA-TOBACCO USE 30 YEARS OR MORE [facility] Feb 16, 2022 01:00 PM VA-TOBACCO USE ADVICE [facility] Feb 16, 2022 01:00 PM VA-TOBACCO USE PATTERN ATTENDANT NO [facility] Feb 16, 2022 01:00 PM VA-TOBACCO USE MED NO [facility] Feb 16, 2022 01:00 PM VA-TOBACCO USE [place] 30 MIN OF WAKEUP [facility] Feb 16, 2022 01:00 PM VA-TOBACCO USER EVERY DAY [facility] Jun 21, 2020 04:12 AM CURRENT TOBACCO USER [facility] Jun 21, 2020 04:12 AM TOBACCO OFFERRED S TOP SMOKING CLINIC [facility] Jun 09, 2020 01:24 PM CURRENT TOBACCO USER [facility] Jun 09, 2020 01:24 PM TOBACCO OFFERRED S [facility]MOKING CLINIC [facility] Jul 24, 2019 01:11 PM VA-TOBACCO USE 30 YEARS OR MORE [facility] Jul 24, 2019 01:11 PM VA-TOBACCO USE ADVICE [facility] Jul 24, 2019 01:11 PM VA-TOBACCO USE PATTERN ATTENDANT NO [facility] Jul 24, 2019 01:11 PM VA-TOBACCO USE MED NO [facility] Jul 24, 2019 01:11 PM VA-TOBACCO USE [place] 30 MIN OF WAKEUP [facility] Jul 24, 2019 01:11 PM VA-TOBACCO USER EVERY DAY [facility] March 23, 2018 09:34 AM SMOKING CESSATION NO [facility] March 16, 2018 08:14 PM CURRENT TOBACCO USER [facility] March 16, 2018 08:14 PM SMOKER - OFFERRED MEDS (PROVIDER) [facility] March 16, 2018 08:14 PM TOBACCO OFFERRED S [facility] SMOKING CLINIC [facility] Advance Directives: All historical and current Section Date Range: From patient's date of to the date document was created. This section includes ALL of a patient's completed or amended [place] Advance and Rescinded Directives. The entries below indicate that a directive exists for the patient, but an actual copy is not included with this document. The data comes from all [facility]. Date Advance Directives Provider Source Nov 28, 2017 ADVANCE DIRECTIVE DISCUSSION JOSE ALEJANDRO BULLARD [facility] March 16, 2015 ADVANCE DIRECTIVE [address]Y [facility]EL[facility] Jun 30, 2014 ADVANCE DIRECTIVE DISCUSSION IVONE TOLEDO [facility] Jan 21, 2003 ADVANCE DIRECTIVE DISCUSSION TJ MERCADO Jan 07, 2003 ADVANCE DIRECTIVE DISCUSSION SANCHEZ BROWN Encounter Notes: All associated encounter notes This section contains the clinical notes associated to the Encounter. Date/Time Encounter Note(s) Provider Source Sep 26, 2024 11:38 AM ADMINISTRATIVE NOT E: LOCAL TITLE: ADMINISTRATIVE CONTINUITY STANDARD TITLE: ADMINISTRATIVE NOTE DATE OF NOTE: SEP 26, 2024@11:38 ENTRY DATE: SEP 26, 2024@11:39:06 AUTHOR: JOLEEN MONTEIRO EXP COSIGNER: URGENCY: STATUS: COMPLETED Date of Contact: Sep Type of Contact: face to face: Phone number where patient/family member can be reached:[phone] ADMINISTRATIVE COMMUNICATION (reason for contact): Pt came to the front desk supervisor stating he is having an issue with his rx for BUPRENORPHINE 8MG/NALOXONE 2MG SL FILM. Pt stated it is urgent that he speak to someone regarding his med issue. Pt asked to speak to Dr. Carty or Dr. Armstrong. Cell Maker informed pt neither provider is available today. Pt asked to speak with a nurse. Pt is currently in the waiting room. Please advise. /aren/ JOLEEN MONTEIRO ADVANCED SHIPYARD HELPER Signed: 09/26/2024 11:42 Receipt Acknowledged By: 09/26/2024 12:14 /aren/ ROCHELLE BROOKS Registered Nurse JOLEEN MONTEIRO [facility]
--- OUTSIDE RECORDS SUMMARY | 2024-09-26 08:13 | XMS_ITS | Encounter Summary ---
Author Name [facility] of [facility] Affairs ([place]) Organization 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 Name Role Phone SEAN TRACY Primary [...] Policy Lemon's Name Patient's Relationship to Policy Lemno [facility] ([employer]) MEDICARE ADVANTAGE [facility] ([employer] [facility] [facility]) March 13, 2017 [id number] HEDY OLIVAREZ PATIENT MEDICARE (WNR) MEDICARE (M) PART B March 13, 2014 PART B [id number] HEDY OLIVAREZ PATIENT MEDICARE (WNR) MEDICARE (M) PART B March 13, 2014 PART B [id number] HEDY OLIVAREZ PATIENT MEDICARE (WNR) MEDICARE (M) PART B March 13, 2014 PART B [id number] HEDY OLIVAREZ PATIENT MEDICARE (WNR) MEDICARE (M) PART B March 13, 2014 PART B [id number] HEDY OLIVAREZ PATIENT MEDICARE (WNR) MEDICARE (M) PART B March 13, 2014 PART B [id number] HEDY OLIVAREZ PATIENT MEDICARE (WNR) MEDICARE (M) PART B March 13, 2014 PART B [id number] HEDY OLIVAREZ PATIENT MEDICARE (WNR) MEDICARE (M) PART B March 13, 2014 PART B [id number] HEDY OLIVAREZ PATIENT MEDICARE (WNR) MEDICARE (M) PART B March 13, 2014 PART B [id number] HEDY OLIVAREZ PATIENT MEDICARE (WNR) MEDICARE (M) PART B March 13, 2014 PART B [id number] HEDY OLIVAREZ PATIENT MEDICARE (WNR) MEDICARE (M) PART B Jan 11, 2003 PART B [id number] HEDY OLIVAREZ PATIENT MEDICARE (WNR) MEDICARE (M) PART B Jan 11, 2003 PART B [id number] HEDY OLIVAREZ PATIENT MEDICARE (WNR) MEDICARE (M) PART B Jan 11, 2003 PART B [id number] HEDY OLIVAREZ PATIENT MEDICARE (WNR) MEDICARE (M) PART B Jan 11, 2003 PART B [id number] HEDY OLIVAREZ PATIENT MEDICARE (WNR) MEDICARE (M) PART A Nov 13, 2000 PART A [id number] HEDY OLIVAREZ PATIENT MEDICARE (WNR) MEDICARE (M) PART A Nov 13, 2000 PART A [id number] HEDY OLIVAREZ PATIENT MEDICARE (WNR) MEDICARE (M) PART A Nov 13, 2000 PART A [id number] HEDY OLIVAREZ PATIENT MEDICARE (WNR) MEDICARE (M) PART A Nov 13, 2000 PART A [id number] HEDY OLIVAREZ PATIENT MEDICARE (WNR) MEDICARE (M) PART A Jul 14, 1995 PART A [id number] HEDY OLIVAREZ PATIENT MEDICARE (WNR) MEDICARE (M) PART A Jul 14, 1995 PART A [id number] HEDY OLIVAREZ PATIENT MEDICARE (WNR) MEDICARE (M) PART A Jul 14, 1995 PART A [id number] HEDY OLIVAREZ PATIENT MEDICARE (WNR) MEDICARE (M) PART B Jul 14, 1995 PART B [id number] HEDY OLIVAREZ PATIENT MEDICARE (WNR) MEDICARE (M) PART B Jul 14, 1995 PART B [id number] HEDY OLIVAREZ PATIENT MEDICARE (WNR) MEDICARE (M) PART A Jul 14, 1995 PART A [id number] HEDY OLIVAREZ PATIENT MEDICARE (WNR) MEDICARE (M) PART A Jul 14, 1995 PART A [id number] HEDY OLIVAREZ PATIENT MEDICARE (WNR) MEDICARE (M) PART A Jul 14, 1995 PART A [id number] HEDY OLIVAREZ PATIENT MEDICARE (WNR) MEDICARE (M) PART A Jul 14, 1995 PART A [id number] HEDY OLIVAREZ PATIENT MEDICARE (WNR) MEDICARE (M) PART A Jul 14, 1995 PART A [id number] HEDY OLIVAREZ PATIENT MEDICARE (WNR) MEDICARE (M) PART A Jul 14, 1995 PART A [id number] HEDY OLIVAREZ PATIENT MEDICARE (WNR) MEDICARE (M) PART A Jul 14, 1995 PART A [id number] HEDY OLIVAREZ PATIENT MEDICARE (WNR) MEDICARE (M) PART A Jul 14, 1995 PART A [id number] HEDY OLIVAREZ PATIENT MEDICARE PART D (WNR) MEDICARE (M) PART D Oct 13, 2022 PART D [id number] HEDY OLIVAREZ PATIENT [facility] MCR (WNR) MEDICARE ADVANTAGE MCR (WNR) Oct 13, 2022 [id number] HEDY OLIVAREZ PATIENT Selected Encounter This section includes the information on record at NH for the Encounter. Date/Time Encounter Type Encounter Description Reason Provider Source Sep 26, 2024 12:13 PM OFFICE O/P EST MOD 30 MIN SUBSTANCE USE DISORDER IND ICD-10-CM F11.20 Opioid dependence, uncomplicated JENNIFER POWELL [facility] Encounter Template Text not used by NH Assessments - Encounter Diagnoses This section includes the primary and secondary diagnoses documented for the Encounter. Date/Time Primary/Secondary Diagnosis Diagnosis Name Provider Source Sep 26, 2024 12:22 PM PRIMARY Opioid dependence, uncomplicated JENNIFER POWELL [facility] Plan of Treatment: Future Appointments (+ 6 months) and Future Tests (+/- 45 days) The Plan of Treatment section includes future care activities for the patient from all [facility]. This section includes future appointments and [...] 14, 2024 11:30 AM AM[place]ULATORY [place] [facility] [place]] Oct 29, 2024 08:30 AM AMBULATORY [place] [facility] [place] 2] Nov 04, 2024 02:00 PM AMBULATORY - PSYCHIATRY [facility] Nov 15, 2024 01:00 PM AMBULATORY - MEDICINE [facility] Nov 19, 2024 08:00 AM AMBULATORY - PSYCHIATRY [facility] Nov 26, 2024 10:00 AM AMBULAT[facility] [place] [facility] [place] 2] Dec 24, 2024 11:00 AM AMBULATORY - [place]IATRY [facility] [place] 2] Dec 31, 2024 09:00 AM AMBULATORY - [place]IAT[place] [facility] [place] 2] Dec 31, 2024 02:30 PM AMBULATORY - [place]IATRY [facility] [place] 2] Jan 07, 2025 10:00 AM AMBULATORY - PSYCHIATRY [facility] Jan 28, 2025 10:00 AM AMBULATORY - PS[place]CHIATRY [facility] [place] 2] Jan 28, 2025 11:50 AM AMBULATORY - MEDICINE [facility] Feb 07, 2025 08:30 AM AMBULATORY - MEDICINE [facility] Feb 13, 2025 08:00 AM AMBULATORY - PSYCHIATRY [facility] Feb 25, 2025 11:00 AM AMBULATORY - PSYCHIATRY [facility] [place] 2] Feb 27, 2025 11:00 AM AMBULATORY - SURGERY [facility] March 25, 2025 10:30 AM AMBULATORY - PSYCHIATRY [facility] [place]NOTE 2] Active, Pending, and Scheduled Orders This section [...] OCCULT BLOOD,FIT X1 SCREEN STOOL FECES SP [facility] Lab Results: +/- 30 days of the [...] Type Comment Sep 26, 2024 01:11 PM [facility] GCMS SCREEN,U/M URINE,RA NDOM Specimen Type: URINE,RANDOM [...] Ordering Provider: ALEJANDRO CARTY Report Released Date/Time: Sep 17, 2024 10:51 AM Reporting Lab: [place] [id number] [facility] [address] Performing Lab: [facility] [place]note 2] Dept of Pathology [facility] [id number] GCMS SCREEN,U/M comment Sep 26, 2024 01:11 PM [facility] TOX SCREEN ([facility]) URINE,RANDOM Specimen Type : URINE,RANDOM Comment: ~For Test: GCMS SCREEN,U/M ~Amphetamine metabolites Ordering Provider: ALEJANDRO CARTY Report Released Date/Time: Sep 17, 2024 10:51 AM Reporting Lab: [address] [address] Performing Lab: [address] [address] BENZODIAZEPINES Not Detected Not Detecte d CANNABINOIDS,URINE [...] Not Detected Sep 26, 2024 01:11 PM [facility] BASIC METABOLIC PANEL BLOOD Specimen Type: BL OOD No comment entered. Ordering Provider: HAYLIE VALLE Report Released Date/Time: Sep 26, 2024 11:19 AM Reporting Lab: [address] [address] Performing Lab: [address] [address] CREATININE 1.2 mg/dL 0.6-1.3 UREA NITROGEN 24 mg/dL 7-25 GLUCOSE 100 mg/dL 74-109 SODIUM 137 mmol/L 136-145 POTASSIUM 4.0 mmol/L 3.5-5.1 CHLORIDE 101 mmol/L 98-107 CO2 32 mmol/L H 21-31 CALCIUM 9.6 mg/dL 8.6-10.3 EGFR 67 mL/min/{1.73_m2} Sep 26, 2024 01:11 PM [facility] TSH BLOOD Specimen Type: BLOOD Comment: ~==ADD-ON TO BLOOD ALREADY DRAWN. MOST RECENT SPECIMEN. Ordering Provider: HAYLIE VALLE Report Released Date/Time: Sep 26, 2024 01:27 PM Reporting Lab: [address] [address] Performing Lab: [address] [address] TSH 1.340 u[IU]/mL 0.45-5.33 Social History: Smoking [...] 2023 11:00 AM VA-TOBACCO USER EVERY DAY [facility] Tobacco Use History This section includes a history of the smoking, or tobacco-related health factors, that were collected on or before the date of the Encounter. The data comes from the NH facility where the Encounter took place. 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 [facility] Feb 07, 2023 11:00 AM VA-TOBACCO USE MED NOTIFY PROVIDER [facility] Feb 07, 2023 11:00 AM VA-TOBACCO USE [place] 30 MIN OF WAKEUP [facility] Feb 07, 2023 11:00 AM VA-TOBACCO USER EVERY DAY [facility] Feb 16, 2022 01:00 PM VA-TOBACCO USE 30 YEARS OR MORE [facility] Feb 16, 2022 01:00 PM VA-TOBACCO USE ADVICE [facility] Feb 16, 2022 01:00 PM VA-TOBACCO USE 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 [facility] Feb 16, 2022 01:00 PM VA-TOBACCO USE MED NO [facility] Feb 16, 2022 01:00 PM VA-TOBACCO USE [place] 30 MIN OF WAKEUP [facility] Feb 16, 2022 01:00 PM VA-TOBACCO USER EVERY DAY [facility] Jun 21, 2020 04:12 AM CURRENT TOBACCO USER [facility] Jun 21, 2020 04:12 AM TOBACCO OFFERRED S TOP SMOKING CLINIC [facility] Jun 09, 2020 01:24 PM CURRENT TOBACCO USER [facility] Jun 09, 2020 01:24 PM TOBACCO OFFERRED S TOP SMOKING CLINIC [facility] Jul 24, 2019 01:11 PM VA-TOBACCO USE 30 YEARS OR MORE [facility] Jul 24, 2019 01:11 PM VA-TOBACCO USE ADVICE [facility] Jul 24, 2019 01:11 PM VA-TOBACCO USE 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 [facility] Jul 24, 2019 01:11 PM VA-TOBACCO USE MED NO [facility] Jul 24, 2019 01:11 PM VA-TOBACCO USE [place] 30 MIN OF WAKEUP [facility] Jul 24, 2019 01:11 PM VA-TOBACCO USER EVERY DAY [facility] March 23, 2018 09:34 AM SMOKING CESSATION NO [facility] March 16, 2018 08:14 PM CURRENT TOBACCO USER [facility] March 16, 2018 08:14 PM SMOKER - OFFERRED MEDS (PROVIDER) [facility] March 16, 2018 08:14 PM TOBACCO OFFERRED S [facility] SMOKING CLINIC [facility] Advance Directives: All historical and current Section Date Range: From patient's date of to the date document was created. This section includes ALL of a patient's completed or amended NH Advance and Rescinded Directives. The entries below indicate that a directive exists for the patient, but an actual copy is not included with this document. The data comes from all [facility]. Date Advance Directives Provider Source Nov 28, 2017 ADVANCE DIRECTIVE DISCUSSION JOSE ALEJANDRO BULLARD [facility] March 16, 2015 ADVANCE DIRECTIVE CASEY FELIX [facility] Jun 30, 2014 ADVANCE DIRECTIVE DISCUSSION IVONE [facility] Jan 21, 2003 ADVANCE DIRECTIVE DISCUSSION TJ MERCADO Jan 07, 2003 ADVANCE DIRECTIVE DISCUSSION SANCHEZ BROWN Encounter Notes: All associated encounter notes This section contains the clinical notes associated to the Encounter. Date/Time Encounter Note(s) Provider Source Oct 14, 2024 08:45 AM ACCOUNTING OF DISC LOSURES NOTE: LOCAL TITLE: STATE PRESCRIPTION DRUG MONITORING PROGRAM STANDARD TITLE: ACCOUNTING OF DISCLOSURES NOTE DATE OF NOTE: OCT 14, 2024@08:45:11 ENTRY DATE: OCT 14, 2024@08:45:11 AUTHOR: ALEJANDRO CARTY EXP COSIGNER: URGENCY: STATUS: COMPLETED This PDMP query was submitted by Alejandro Carty MD. The clinical justification for this PDMP query is to review controlled substances prescribed outside of the NH, and any additional information that may become available, as an important component of standard clinical care, and in accordance with [facility] policy. Patient information was shared with the [facility] [place]. No prescription(s) for controlled substances outside the NH were found in the last 90 days. /aren/ ALEJANDRO CARTY MD Staff Physician, [facility] Signed: 10/14/2024 08:45 ALEJANDRO CARTY [facility] Sep 30, 2024 02:00 PM LETTERS: LOCAL TITLE: TEST RESULTS PATIENT LETTER (MAILED TO PATIENT) STANDARD TITLE: LETTERS DATE OF NOTE: SEP 30, 2024@14:00 ENTRY DATE: SEP 30, 2024@14:00:24 AUTHOR: ALEJANDRO CARTY EXP COSIGNER: URGENCY: STATUS: COMPLETED [place] [id number] SEP 30, 2024 AARON OLIVAREZ [address] [place] [address] Dear Aaron Cassandra : I would like to update you on your recent lab results: TOX SCREEN ([facility]) URINE,RANDOM SP LB #[id number] Collection time: Sep 26, 2024@13:11 Test Name Result Units Range --------- ------ ----- ----- AMPHETAMINES DETECTED H Ref: Not Detected BARBITURATES Not Detected Ref: Not Detected BENZODIAZEPINES Not Detected Ref: Not Detected CANNABINOIDS,URINE Not Detected Ref: Not Detected COCAINE,URINE Not Detected Ref: Not Detected OPIATES,URINE DETECTED H Ref: Not Detected URINE METHADONE Not Detected Ref: Not Detected URINE OXYCODONE DETECTED H Ref: Not Detected CREATININE,VERIFY 152 mg/dL URINE BUPRENORHINE DETECTED H Ref: Not Detected URINE FENTANYL Not Detected Ref: Not Detected Comments: Ordering Provider: Alejandro Carty MD Report Released Date/Time: Sep 26, 2024@14:58 Reporting Lab: [facility] [CLIA# [id number]] [address] [place] [id number] Performing Lab: [facility] [CLIA# [id number]] [address] [place] [phone] Collection time: Sep 26, 2024@13:11 Test Name Result Units Range --------- ------ ----- ----- GCMS SCREEN,U/M comment Comments: ~For Test: GCMS SCREEN,U/M ~Amphetamine metabolites Urine [...] Provider: Alejandro Carty MD Report Released Date/Time: Sep 30, 2024@13:39 Reporting Lab: [facility] [CLIA# [id number]] [address] [place] [phone] Performing Lab: LABS [CLIA# [id number]] [facility] Dept of Pathology [address] [place] [address] [place] [address] Sincerely, ALEJANDRO CARTY MD Staff Physician, [facility] CASSANDRA,AARON CARTY,ALEJANDRO GARNICA [facility] Sep 26, 2024 12:22 PM ACCOUNTING OF DISC LOSURES NOTE: LOCAL TITLE: STATE PRESCRIPTION DRUG MONITORING PROGRAM STANDARD TITLE: ACCOUNTING OF DISCLOSURES NOTE DATE OF NOTE: SEP 26, 2024@12:22:49 ENTRY DATE: SEP 26, 2024@12:22:49 AUTHOR: JENNIFER POWELL EXP COSIGNER: URGENCY: STATUS: COMPLETED This PDMP query was submitted by Jennifer Powell MD. The clinical justification for this PDMP query is to review controlled substances prescribed outside of the NH, and any additional information that may become available, as an important component of standard clinical care, and in accordance with [facility] policy. Patient information was shared with the PDMP [employer] [place]. No prescription(s) for controlled substances outside the [facility] were found in the last 90 days. /aren/ JENNIFER POWELL Attending Physician, Psychiatry Signed: 09/26/2024 12:23 JENNIFER POWELL [facility] Sep 26, 2024 12:13 PM PSYCHIATRY MEDICAT ION MGT NOTE: LOCAL TITLE: PSYCHIATRY MEDICATION STANDARD TITLE: PSYCHIATRY MEDICATION MGT NOTE DATE OF NOTE: SEP 26, 2024@12:13 ENTRY DATE: SEP 26, 2024@12:13:46 AUTHOR: JENNIFER POWELL EXP COSIGNER: URGENCY: STATUS: COMPLETED [facility] PHYSICIAN SUBOXONE MEDICATION REVIEW PATIENT IDENTIFYING DATA Name: AARON OLIVAREZ Social Security Number: [id number] Age: 64 Gender: MALE Date: SEP 26, 2024 Staff present: Jennifer Powell MD The following identifiers were used to verify this patient: Full Name: YES Full SSN: YES CHIEF COMPLAINT: here for refill of suboxone. DSM 5 DIAGNOSTIC IMPRESSION: Severe opioid use disorder INTERVENTIONS: - Medication managment - Psychoeducation INTERIM HISTORY: No-showed 09/17/[address] Carty due to transporation issue. Says he has been getting suboxone from others and has been maintaining his current dose. Trying to get in to [facility] for meth. Mood up & down , denies suicidal & homicidal ideation. Has chronic pain issues. ROS - Constitutional- weight gain/loss- denies; fever- denies - Psychiatric- Denies suicidal & homicidal ideation; denies hallucinations, paranoia, no delusions voiced. Denies manic sx. Last took suboxone: today Last UDS: +amphetmaine, cannabinoids, oxycodone UDS Collected today?: Yes Cravings:No Medication SE:denies Substance Use: see above Desire to Titrate?: No If yes, then when: MENTAL STATUS EXAM: Appearance: appears stated age, dressed appropriately with good hygiene, good eye contact Behavior: cooperative with interview Psychomotor activity: no abnormal movements. Speech: normal rate and volume Mood: up & down Affect: euthymic, mood congruent Thought process: logical and goal-oriented, answers questions directly Thought content: denies SI and HI. Perceptions: denies AH and VH, does not appear to be responding to internal stimuli, no overt signs noted Cognition: alert and orientedx3, cognition intact to interview Recent/Remote Memory: wnl/wnl Fund of Knowledge: intact Insight/judgment: fair/fair TREATMENT PLAN REVIEW/UPDATE: Suboxone Dose: - continue suboxone 8mg sl tid Other medical/medication Issues: - continue current management Medication Reconcilliation The current medication list was reviewed and reconciled with the patient/family today. If any changes were made, the patient/family member received an updated list of medications that relate to this appointment or psychiatric care, and the patient was counseled on medication changes and verbalized understanding. Recommended treatments and treatment expectations were discussed. The patient had no further questions or concerns, expressed understanding of all information (common adverse effects, risks vs. benefits, rationale, alternatives, and expected outcomes) and was agreeable with the plan Follow up - 10/14/24 - pt has my contact information and is aware that they are able to contact me in the future if needed MEDICATIONS: Active Outpatient Medications (including Supplies): Issue Date Status Last Fill Active Outpatient Medications Refills Expiration 1) ALBUTEROL 90MCG (CFC-F) 200D ORAL INHL ACTIVE Issu:08-12-24 Qty: 1 for 30 days Sig: INHALE 2 Refills: 5 Last:08-12-24 PUFFS BY INHALATION EVERY 4 HOURS Expr:08-13-25 NEEDED FOR SHORTNESS OF BREATH FOR SHORTNESS OF BREATH 2) GABAPENTIN 800MG TAB Qty: 270 for 90 ACTIVE Issu:06-28-24 days Sig: TAKE ONE TABLET BY MOUTH Refills: 0 Last:06-28-24 THREE TIMES A DAY FOR NERVE PAIN Expr:09-26-24 3) LEVOTHYROXINE NA (SYNTHROID) 150MCG TAB ACTIVE Issu:05-22-24 Qty: 60 for 60 days Sig: TAKE ONE Refills: 0 Last:08-07-24 TABLET BY MOUTH EVERY DAY IN THE Expr:05-23-25 MORNING FOR THYROID 4) NALOXONE HCL 4MG/SPRAY SOLN NASAL SPRAY ACTIVE Issu:08-20-24 Qty: 2 for 1 days Sig: INSTILL 1 Refills: 1 Last:08-22-24 SPRAY IN NOSE ONCE FOR SUSPECTED Expr:08-21-25 OPIOID OVERDOSE DO NOT PRIME OR TEST THE SPRAY DEVICE. GENTLY INSERT TIP INTO ONE NOSTRIL AND PRESS THE PLUNGER FIRMLY TO GIVE THE ENTIRE DOSE. USE EACH DEVICE ONLY ONCE. /aren/ JENNIFER POWELL Attending Physician, Psychiatry Signed: 09/26/2024 12:22 Receipt Acknowledged By: 09/27/2024 10:38 /es/ ALEJANDRO CARTY MD Staff Physician, [facility]
--- OUTSIDE RECORDS SUMMARY | 2024-10-14 07:30 | XMS_ITS | Encounter Summary ---
Author Name [facility] [place] Organization [facility] ([place]) Address [address] [place] [id number] Care Team Providers Care Public Relations Coordinator Name Role Phone SEAN TRACY Primary Care [...] Lemon's Name Patient's Relationship to Policy Lemon [facility] (WN) MEDICARE ADVANTAGE [facility] ([facility]) March 13, 2017 [id number] HEDY OLIVAREZ PATIENT MEDICARE (WN) MEDICARE (M) PART B March 13, 2014 PART B [id number] HEDY OLIVAREZ PATIENT MEDICARE (WNR) MEDICARE (M) PART B March 13, 2014 PART B [id number] HEYD OLIVAREZ PATIENT MEDICARE (WNR) MEDICARE (M) PART B March 13, 2014 PART B [id number] HEDY OLIVAREZ PATIENT MEDICARE (WNR) MEDICARE (M) PART B March 13, 2014 PART B [id number] HEDY OLIVAREZ PATIENT MEDICARE (WNR) MEDICARE (M) PART B March 13, 2014 PART B [id number] HEDY OLIVAREZ PATIENT MEDICARE (WNR) MEDICARE (M) PART B March 13, 2014 PART B [id number] HEDY OLIVAREZ PATIENT MEDICARE (WNR) MEDICARE (M) PART B March 13, 2014 PART B [id number] HEDY OLIVAREZ PATIENT MEDICARE (WNR) MEDICARE (M) PART B March 13, 2014 PART B [id number] HEDY OLIVAREZ PATIENT MEDICARE (WNR) MEDICARE (M) PART B March 13, 2014 PART B [id number] HEDY OLIVAREZ PATIENT MEDICARE (WNR) MEDICARE (M) PART B Jan 11, 2003 PART B [id number] HEDY OLIVAREZ PATIENT MEDICARE (WNR) MEDICARE (M) PART B Jan 11, 2003 PART B [id number] HEDY OLIVAREZ PATIENT MEDICARE (WNR) MEDICARE (M) PART B Jan 11, 2003 PART B [id number] HEDY OLIVAREZ PATIENT MEDICARE (WNR) MEDICARE (M) PART B Jan 11, 2003 PART B [id number] HEDY OLIVAREZ PATIENT MEDICARE (WNR) MEDICARE (M) PART A Nov 13, 2000 PART A [id number] HEDY OLIVAREZ PATIENT MEDICARE (WNR) MEDICARE (M) PART A Nov 13, 2000 PART A [id number] HEDY OLIVAREZ PATIENT MEDICARE (WNR) MEDICARE (M) PART A Nov 13, 2000 PART A [id number] HEDY OLIVAREZ PATIENT MEDICARE (WNR) MEDICARE (M) PART A Nov 13, 2000 PART A [id number] HEDY OLIVAREZ PATIENT MEDICARE (WNR) MEDICARE (M) PART A Jul 14, 1995 PART A [id number] HEDY OLIVAREZ PATIENT MEDICARE (WNR) MEDICARE (M) PART A Jul 14, 1995 PART A [id number] HEDY OLIVAREZ PATIENT MEDICARE (WNR) MEDICARE (M) PART A Jul 14, 1995 PART A [id number] HEDY OLIVAREZ PATIENT MEDICARE (WNR) MEDICARE (M) PART B Jul 14, 1995 PART B [id number] HEDY OLIVAREZ PATIENT MEDICARE (WNR) MEDICARE (M) PART B Jul 14, 1995 PART B [id number] HEDY OLIVAREZ PATIENT MEDICARE (WNR) MEDICARE (M) PART A Jul 14, 1995 PART A [id number] HEDY OLIVAREZ PATIENT MEDICARE (WNR) MEDICARE (M) PART A Jul 14, 1995 PART A [id number] HEDY OLIVAREZ PATIENT MEDICARE (WNR) MEDICARE (M) PART A Jul 14, 1995 PART A [id number] HEDY OLIVAREZ PATIENT MEDICARE (WNR) MEDICARE (M) PART A Jul 14, 1995 PART A [id number] HEDY OLIVAREZ PATIENT MEDICARE (WNR) MEDICARE (M) PART A Jul 14, 1995 PART A [id number] HEDY OLIVAREZ PATIENT MEDICARE (WNR) MEDICARE (M) PART A Jul 14, 1995 PART A [id number] HEDY OLIVAREZ PATIENT MEDICARE (WNR) MEDICARE (M) PART A Jul 14, 1995 PART A [id number] HEDY OLIVAREZ PATIENT MEDICARE (WNR) MEDICARE (M) PART A Jul 14, 1995 PART A [id number] HEDY OLIVAREZ PATIENT MEDICARE PART D (WNR) MEDICARE (M) PART D Oct 13, 2022 PART D [id number] HEDY OLIVAREZ PATIENT [facility] MCR (WNR) MEDICARE ADVANTAGE MCR (WNR) Oct 13, 2022 [id number] HEDY OLIVAREZ PATIENT Selected Encounter This section includes the information on record at [place] for the Encounter. Date/Time Encounter Type Encounter Description Reason Pro vider Source Oct 14, 2024 11:30 AM Outpatient Encounter SUBSTANCE USE DISORDER IND IHE Encounter Template Text not used by [place] Plan of Treatment: Future Appointments (+ 6 months) and Future Tests (+/- 45 days) The Plan of Treatment section includes future care activities for the patient from all [place] [facility]. This section includes future appointments and future orders which are active, pending or scheduled. Future Appointments This section includes appointments that were scheduled to occur 6 months from the date of the Encounter, up to a maximum of 20 appointments. The data comes from all [place] treatment facilities. Appointment Date/Time Appointment Type Appointme nt Facility Name Oct 29, 2024 08:30 AM AMBULATORY - PSYCHIATRY [facility] Nov 04, 2024 02:00 PM AMBULATORY - PSYCHIATRY [facility] Nov 15, 2024 01:00 PM AMBULATORY - MEDICINE [facility] Nov 19, 2024 08:00 AM AMBULATORY - PSYCHIATRY [facility] Nov 26, 2024 10:00 AM AMBULATORY - PSYCHIATRY [facility] Dec 24, 2024 11:00 AM AMBULATORY - PSYCHIATRY [facility] Dec 31, 2024 09:00 AM AMBULATORY - PSYCHIATRY [facility] Dec 31, 2024 02:30 PM AMBULATORY - PSYCHIATRY [facility] Jan 07, 2025 10:00 AM AMBULATORY - PSYCHIATRY [facility] Jan 28, 2025 10:00 AM AMBULATORY - PSYCHIATRY [facility] Jan 28, 2025 11:50 AM AMBULATORY - MEDICINE [facility] Feb 07, 2025 08:30 AM AMBULATORY - MEDICINE [facility] Feb 13, 2025 08:00 AM AMBULATORY - PSYCHIATRY [facility] Feb 25, 2025 11:00 AM AMBULATORY - PSYCHIATRY [facility] Feb 27, 2025 11:00 AM AMBULATORY - SURGERY [facility] March 25, 2025 10:30 AM AMBULATORY - PSYCHIATRY [facility] Active, Pending, and Scheduled Orders This section includes a listing of several types of active, pending, and scheduled orders, including clinic medications orders, diagnostic test orders, procedure orders and consult orders; where the start date of the order is 45 days before the date of the Encounter or 45 days after the date of theEncounter. The data comes from all [place] treatment facilities. Test Date/Time Test Type Test Details Facility Name Sep 16, 2024 12:00 AM Laboratory - Chemi stry Order OCCULT BLOOD,FIT X1 SCREEN STOOL FECES SP [facility] Nov 19, 2024 12:00 AM Laboratory - Chemi stry Order UDS URINE [facility] DOM Lab Results: +/- 30 days of the encounter This section includes the Chemistry and Hematology Lab Results on record with [place] for the patient. Radiology Reports and Pathology Reports are provided separately, in subsequent sections. Lab Results This section contains the Chemistry/Hematology Results that were resulted 30 days before or 30 daysafter the date of the Encounter. Date/Time Source Result Type Result - Unit Interpretation Reference Range Specimen Type Comment Oct 29, 2024 08:[address] [facility] GCMS SCREEN,U/M URINE,RA NDOM Specimen Type: URINE,RANDOM Comment: ~For Test: GCMS SCREEN,U/M ~apmphetamine metabolites Urine drug screen is POSITIVE. The following drugs were detected: Cocaine Methylecgonine Gabapentin Cotinine Caffeine This gas chromatography of urine will detect a variety of therapeutic and potentially abused drugs including antidepressants, anticonvulsants, sedatives, opiates and pain medications. This test was developed and its performance characteristics validated by the laboratory. It has not been cleared nor approved by the U.S. Food and Drug Administration. Ordering Provider: ALEJANDRO CARTY Report Released Date/Time: Oct 22, 2024 12:39 PM Reporting Lab: [place] [id number] [facility] [phone] Performing Lab: [facility] Dept of Pathology [facility] [id number] GCMS SCREEN,U/M comment Oct 29, 2024 08:[address] [facility] TOX SCREEN ([facility]) URINE,RANDOM Specimen Type : URINE,RANDOM Comment: ~For Test: GCMS SCREEN,U/M ~apmphetamine metabolites Ordering Provider: ALEJANDRO CARTY Report Released Date/Time: Oct 22, 2024 12:39 PM Reporting Lab: [address] [address] Performing Lab: [address] [address] BENZODIAZEPINES Not Detected Not Detecte d CANNABINOIDS,URINE DETECTED H Not Detected OPIATES,URINE Not Detected Not Detected AMPHETAMINES DETECTED H Not Detected BARBITURATES Not Detected Not Detected COCAINE,URINE DETECTED H Not Detected CREATININE,VERIFY 166 mg/dL URINE METHADONE Not Detected Not Detecte d URINE OXYCODONE Not Detected Not Detecte d URINE BUPRENORHINE DETECTED H Not Detected URINE FENTANYL Not Detected Not Detected Sep 26, 2024 01:[address] [facility] GCMS SCREEN,U/M URINE,RANDOM Specimen Type: URINE,RANDOM [...] Sep 17, 2024 10:51 AM Reporting Lab: [address] [address] Performing Lab: [facility] Dept of Pathology [facility] [phone] GCMS SCREEN,U/M comment Sep 26, 2024 01:[address] [facility] TOX SCREEN ([facility]) URINE,RANDOM Specimen Type : URINE,RANDOM Comment: ~For Test: GCMS SCREEN,U/M ~Amphetamine metabolites Ordering Provider: ALEJANDRO CARTY Report Released Date/Time: Sep 17, 2024 10:51 AM Reporting Lab: [address] [address] Performing Lab: [address] [address] BENZODIAZEPINES Not Detected Not Detecte d CANNABINOIDS,URINE [...] Not Detected Sep 26, 2024 01:[address] [facility] BASIC METABOLIC PANEL BLOOD Specimen Type: BL OOD No comment entered. Ordering Provider: HAYLIE VALLE Report Released Date/Time: Sep 26, 2024 11:19 AM Reporting Lab: [address] [address] Performing Lab: [address] [address] CREATININE 1.2 mg/dL 0.6-1.3 UREA NITROGEN 24 mg/dL 7-25 GLUCOSE 100 mg/dL 74-109 SODIUM 137 mmol/L 136-145 POTASSIUM 4.0 mmol/L 3.5-5.1 CHLORIDE 101 mmol/L 98-107 CO2 32 mmol/L H 21-31 CALCIUM 9.6 mg/dL 8.6-10.3 EGFR 67 mL/min/{1.73_m2} Sep 26, 2024 01:11 PM [facility] TSH BLOOD Specimen Type: BLOOD Comment: ~==ADD-ON TO BLOOD ALREADY DRAWN. MOST RECENT SPECIMEN. Ordering Provider: HAYLIE VALLE Report Released Date/Time: Sep 26, 2024 01:27 PM Reporting Lab: [address] [address] Performing Lab: [address] [address] TSH 1.340 u[IU]/mL 0.45-5.33 Social History: Smoking Status (Most current) and Tobacco Use (All prior to encounter date) This section includes the most current, and the historical, smoking and tobacco- related health factors from the [place] facility where the Encounter took place. Current Smoking Status This section includes the most current smoking, or tobacco-related health factor, from the [place] facility where the Encounter took place. Date/Time Current Smoking Status Comment Facil beto Feb 07, 2023 11:00 AM VA-TOBACCO USER EVERY DAY [facility] Tobacco Use History This section includes a history of the smoking, or tobacco-related health factors, that were collected on or before the date of the Encounter. The data comes from the [place] facility where the Encounter took place. 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 [facility] Feb 07, 2023 11:00 AM VA-TOBACCO USE MED NOTIFY PROVIDER [facility] Feb 07, 2023 11:00 AM VA-TOBACCO USE WI 30 MIN OF WAKEUP [facility] Feb 07, 2023 11:00 AM VA-TOBACCO USER EVERY DAY [facility] Feb 16, 2022 01:00 PM VA-TOBACCO USE 30 YEARS OR MORE [facility] Feb 16, 2022 01:00 PM VA-TOBACCO USE ADVICE [facility] Feb 16, 2022 01:00 PM 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 [facility] Feb 16, 2022 01:00 PM VA-TOBACCO USE MED NO [facility] Feb 16, 2022 01:00 PM VA-TOBACCO USE WI 30 MIN OF WAKEUP [facility] Feb 16, 2022 01:00 PM VA-TOBACCO USER EVERY DAY [facility] Jun 21, 2020 04:12 AM CURRENT TOBACCO USER [facility] Jun 21, 2020 04:12 AM TOBACCO OFFERRED S TOP SMOKING CLINIC [facility] Jun 09, 2020 01:24 PM CURRENT TOBACCO USER [facility] Jun 09, 2020 01:24 PM TOBACCO OFFERRED S TOP SMOKING CLINIC [facility] Jul 24, 2019 01:11 PM VA-TOBACCO USE 30 [address]ARS OR MORE [facility] Jul 24, 2019 01:11 PM VA-TOBACCO USE ADVICE [facility] Jul 24, 2019 01:11 PM 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 [facility] Jul 24, 2019 01:11 PM VA-TOBACCO USE MED NO [facility] Jul 24, 2019 01:11 PM VA-TOBACCO USE WI 30 MIN OF WAKEUP [facility] Jul 24, 2019 01:11 PM VA-TOBACCO USER EVERY DAY [facility] March 23, 2018 09:34 AM SMOKING CESSATION NO [facility] March 16, 2018 08:14 PM CURRENT TOBACCO USER [facility] March 16, 2018 08:14 PM SMOKER - OFFERRED MEDS (PROVIDER) [facility] March 16, 2018 08:14 PM TOBACCO OFFERRED S [facility] SMOKING CLINIC [facility] Advance Directives: All historical and current Section Date Range: From patient's date of to the date document was created. This section includes ALL of a patient's completed or amended [place] Advance and Rescinded Directives. The entries below indicate that a directive exists for the patient, but an actual copy is not included with this document. The data comes from all [place] facilities. Date Advance Directives Provider Source Nov 28, 2017 ADVANCE DIRECTIVE DISCUSSION JOSE ALEJANDRO BULLARD RANDALL [facility] March 16, 2015 ADVANCE DIRECTIVE CASEY [facility] Jun 30, 2014 ADVANCE DIRECTIVE DISCUSSION IVONE TOLEDO [facility] Jan 21, 2003 ADVANCE DIRECTIVE DISCUSSION TJ MERCADO Jan 07, 2003 ADVANCE DIRECTIVE DISCUSSION SANCHEZ BROWN Encounter Notes: All associated encounter notes This section contains the clinical notes associated to the Encounter. Date/Time Encounter Note(s) Provider Source Oct 22, 2024 12:40 PM ACCOUNTING OF DISC LOSURES NOTE: LOCAL TITLE: STATE PRESCRIPTION DRUG MONITORING PROGRAM STANDARD TITLE: ACCOUNTING OF DISCLOSURES NOTE DATE OF NOTE: OCT 22, 2024@12:40:43 ENTRY DATE: OCT 22, 2024@12:40:43 AUTHOR: ALEJANDRO CARTY EXP COSIGNER: URGENCY: STATUS: COMPLETED This PDMP query was submitted by Alejandro Carty MD. The clinical justification for this PDMP query is to review controlled substances prescribed outside of the [facility], and any additional information that may become available, as an important component of standard clinical care, and in accordance with [facility] policy. Patient information was shared with the PDMP [place]. No prescription(s) for controlled substances outside the [facility] were found in the last 90 days. /aren/ ALEJANDRO CARTY MD Staff Physician, [facility] Signed: 10/22/2024 12:[address] [facility] Oct 22, 2024 12:23 PM ADDENDUM: LOCAL TITLE: Addendum STANDARD TITLE: ADDENDUM DATE OF NOTE: OCT 22, 2024@12:23:55 ENTRY DATE: OCT 22, 2024@12:23:57 AUTHOR: ROCHELLE BROOKS EXP COSIGNER: URGENCY: STATUS: COMPLETED Will notify Dr. Carty. /aren/ ROCHELLE BROOKS Registered Nurse Signed: 10/22/2024 12:24 Receipt Acknowledged By: 10/22/2024 12:39 /aren/ ALEJANDRO CARTY MD Staff Physician, [facility] --- Original Document --- 10/22/24 ADMINISTRATIVE CONTINUITY: Date of Contact: Oct Type of Contact: phone: [phone] ADMINISTRATIVE COMMUNICATION (reason for contact): Patient requires medication renewal of the following medication: BUPRENORPHINE 8MG/NALOXONE 2MG FILM, SUBLINGUAL DISSOLVE 1 FILM UNDER THE TONGUE THREE TIMES A DAY Quantity: 54 Refills: 0 Indication: FOR OPIOID DEPENDENCE Patient contacted clinic requesting to reschedule no showed patient requested visit . Patient also stated he is currently out of following medication and requesting an overnight mail out if approved. Please assist patient first /aren/ JOSÉ MIGUEL WHEELER MSA Signed: 10/22/2024 11:58 Receipt Acknowledged By: * AWAITING SIGNATURE * ROCHELLE BROOKS CHAINDA M [facility] Oct 22, 2024 11:47 AM ADMINISTRATIVE NOT E: LOCAL TITLE: ADMINISTRATIVE CONTINUITY STANDARD TITLE: ADMINISTRATIVE NOTE DATE OF NOTE: OCT 22, 2024@11:47 ENTRY DATE: OCT 22, 2024@11:47:52 AUTHOR: JOSÉ MIGUEL WHEELER EXP COSIGNER: URGENCY: STATUS: COMPLETED ADMINISTRATIVE CONTINUITY Has ADDENDA Date of Contact: Oct Type of Contact: phone: [phone] ADMINISTRATIVE COMMUNICATION (reason for contact): Patient requires medication renewal of the following medication: BUPRENORPHINE 8MG/NALOXONE 2MG FILM, SUBLINGUAL DISSOLVE 1 FILM UNDER THE TONGUE THREE TIMES A DAY Quantity: 54 Refills: 0 Indication: FOR OPIOID DEPENDENCE Patient contacted clinic requesting to reschedule no showed patient requested visit . Patient also stated he is currently out of following medication and requesting an overnight mail out if approved. Please assist patient first /es/ JOSÉ MIGUEL WHEELER MSA Signed: 10/22/2024 11:58 Receipt Acknowledged By: 10/22/2024 12:52 /es/ ROCHELLE BROOKS Registered Nurse 10/22/2024 ADDENDUM STATUS: COMPLETED Will notify Dr. Carty. /aren/ ROCHELLE BROOKS Registered Nurse Signed: 10/22/2024 12:24 Receipt Acknowledged By: 10/22/2024 12:39 /aren/ ALEJANDRO CARTY MD Staff Physician, [facility] JOSÉ MIGUEL WHEELER [facility] Oct 14, 2024 03:22 PM NO SHOW NOTE: LOCAL TITLE: PSYCHIATRY NO SHOW - CANCEL - RESCHEDULE STANDARD TITLE: NO SHOW NOTE DATE OF NOTE: OCT 14, 2024@15:22 ENTRY DATE: OCT 14, 2024@15:22:23 AUTHOR: ALEJANDRO CARTY EXP COSIGNER: URGENCY: STATUS: COMPLETED Note Title: PSYCHIATRY NO SHOW - CANCEL - RESCHEDULE No Show Reason for Cancellation: Per A Notice 2019-09(2), For mental health appointments, (inclusive of consults, return to clinic orders, and failure to report (no-show)), the minimum scheduling effort for scheduling/rescheduling totals of four attempts; three documented contact attempts by telephone on separate days, followed by a letter. [place] does NOT have a HRS-PRF, and did not attend scheduled appointment on Oct@11:30. was NOT reachable by phone with the following results: Attempt to contact at only available phone number. Message indicates unable to accept calls, unable to leave message. Called several times today, same message. /aren/ ALEJANDRO CARTY MD Staff Physician, [facility] Signed: 10/14/2024 15:[address] [facility]
--- OUTSIDE RECORDS SUMMARY | 2024-10-29 04:30 | XMS_ITS | Encounter Summary ---
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 Name Role Phone SEAN TRACY Primary Care [...] Lemon's Name Patient's Relationship to Policy Lemon [facility] ([facility]) MEDICARE ADVANTAGE [facility] ([facility]) March 13, 2017 [id number] HEDY TRUJILLO PATIENT MEDICARE (WNR) MEDICARE (M) PART B March 13, 2014 PART B [id number] HEDY TRUJILLO PATIENT MEDICARE (WNR) MEDICARE (M) PART B March 13, 2014 PART B [id number] HEDY TRUJILLO PATIENT MEDICARE (WNR) MEDICARE (M) PART B March 13, 2014 PART B [id number] HEDY TRUJILLO PATIENT MEDICARE (WNR) MEDICARE (M) PART B March 13, 2014 PART B [id number] HEDY TRUJILLO PATIENT MEDICARE (WNR) MEDICARE (M) PART B March 13, 2014 PART B [id number] HEDY TRUJILLO PATIENT MEDICARE (WNR) MEDICARE (M) PART B March 13, 2014 PART B [id number] HEDY TRUJILLO PATIENT MEDICARE (WNR) MEDICARE (M) PART B March 13, 2014 PART B [id number] HEDY TRUJILLO PATIENT MEDICARE (WNR) MEDICARE (M) PART B March 13, 2014 PART B [id number] HEDY TRUJILLO PATIENT MEDICARE (WNR) MEDICARE (M) PART B March 13, 2014 PART B [id number] HEDY TRUJILLO PATIENT MEDICARE (WNR) MEDICARE (M) PART B Jan 11, 2003 PART B [id number] HEDY TRUJILLO PATIENT MEDICARE (WNR) MEDICARE (M) PART B Jan 11, 2003 PART B [id number] HEDY TRUJILLO PATIENT MEDICARE (WNR) MEDICARE (M) PART B Jan 11, 2003 PART B [id number] HEDY TRUJILLO PATIENT MEDICARE (WNR) MEDICARE (M) PART B Jan 11, 2003 PART B [id number] HEDY TRUJILLO PATIENT MEDICARE (WNR) MEDICARE (M) PART A Nov 13, 2000 PART A [id number] HEDY TRUJILLO PATIENT MEDICARE (WNR) MEDICARE (M) PART A Nov 13, 2000 PART A [id number] HEDY TRUJILLO PATIENT MEDICARE (WNR) MEDICARE (M) PART A Nov 13, 2000 PART A [id number] HEDY TRUJILLO PATIENT MEDICARE (WNR) MEDICARE (M) PART A Nov 13, 2000 PART A [id number] HEDY TRUJILLO PATIENT MEDICARE (WNR) MEDICARE (M) PART A Jul 14, 1995 PART A [id number] HEDY TRUJILLO PATIENT MEDICARE (WNR) MEDICARE (M) PART A Jul 14, 1995 PART A [id number] HEDY TRUJILLO PATIENT MEDICARE (WNR) MEDICARE (M) PART A Jul 14, 1995 PART A [id number] HEDY TRUJILLO PATIENT MEDICARE (WNR) MEDICARE (M) PART B Jul 14, 1995 PART B [id number] HEDY TRUJILLO PATIENT MEDICARE (WNR) MEDICARE (M) PART B Jul 14, 1995 PART B [id number] HEDY TRUJILLO PATIENT MEDICARE (WNR) MEDICARE (M) PART A Jul 14, 1995 PART A [id number] HEDY TRUJILLO PATIENT MEDICARE (WNR) MEDICARE (M) PART A Jul 14, 1995 PART A [id number] HEDY TRUJILLO PATIENT MEDICARE (WNR) MEDICARE (M) PART A Jul 14, 1995 PART A [id number] HEDY TRUJILLO PATIENT MEDICARE (WNR) MEDICARE (M) PART A Jul 14, 1995 PART A [id number] HEDY TRUJILLO PATIENT MEDICARE (WNR) MEDICARE (M) PART A Jul 14, 1995 PART A [id number] HEDY TRUJILLO PATIENT MEDICARE (WNR) MEDICARE (M) PART A Jul 14, 1995 PART A [id number] HEDY TRUJILLO PATIENT MEDICARE (WNR) MEDICARE (M) PART A Jul 14, 1995 PART A [id number] HEDY TRUJILLO PATIENT MEDICARE (WNR) MEDICARE (M) PART A Jul 14, 1995 PART A [id number] HEDY TRUJILLO PATIENT MEDICARE PART D (WNR) MEDICARE (M) PART D Oct 13, 2022 PART D [id number] HEDY TRUJILLO PATIENT [facility] MCR (WNR) MEDICARE ADVANTAGE MCR (WNR) Oct 13, 2022 [id number] HEDY TRUJILLO PATIENT Selected Encounter This section includes the information on record at [place] for the Encounter. Date/Time Encounter Type Encounter Description Reason Provider Source Oct 29, 2024 08:30 AM OFFICE O/P EST MOD 30 MIN SUBSTANCE USE DISORDER IND ICD-10-CM F11.21 Opioid dependence, in remission ALEJANDRO CARTY [facility] Encounter Template Text not used by [place] Assessments - Encounter Diagnoses This section includes the primary and secondary diagnoses documented for the Encounter. Date/Time Primary/Secondary Diagnosis Diagnosis Name Provider Source Oct 29, 2024 10:14 AM PRIMARY Opioid dependence, in remission ALEJANDRO CARTY [facility] Oct 29, 2024 10:14 AM SECONDARY Other stimulant dependence, uncomplicated ALEJANDRO CARTY [facility] Plan of Treatment: Future Appointments (+ 6 months) and Future Tests (+/- 45 days) The Plan of Treatment section includes future care activities for the patient from all [place] [facility]. This section includes future appointments and future orders which are active, pending or scheduled. Future Appointments This section includes appointments that were scheduled to occur 6 months from the date of the Encounter, up to a maximum of 20 appointments. The data comes from all [place] treatment facilities. Appointment Date/Time Appointment Type Appointme nt Facility Name Nov 04, 2024 02:00 PM AMBULATORY - PSYCHIATRY [facility] Nov 15, 2024 01:00 PM AMBULATORY - MEDICINE [facility] Nov 19, 2024 08:00 AM AMBULATORY - PSYCHIATRY [facility] Nov 26, 2024 10:00 AM AMBULATORY - PSYCHIATRY [facility] Dec 24, 2024 11:00 AM AMBULATORY - PSYCHIATRY [facility] Dec 31, 2024 09:00 AM AMBULATORY - PSYCHIATRY [facility] Dec 31, 2024 02:30 PM AMBULATORY - PSYCHIATRY [facility] Jan 07, 2025 10:00 AM AMBULATORY - PSYCHIATRY [facility] Jan 28, 2025 10:00 AM AMBULATORY - PSYCHIATRY [facility] Jan 28, 2025 11:50 AM AMBULATORY - MEDICINE [facility] Feb 07, 2025 08:30 AM AMBULATORY - MEDICINE [facility] Feb 13, 2025 08:00 AM AMBULATORY - PSYCHIATRY [facility] Feb 25, 2025 11:00 AM AMBULATORY - PSYCHIATRY [facility] Feb 27, 2025 11:00 AM AMBULATORY - SURGERY [facility] March 25, 2025 10:30 AM AMBULATORY - PSYCHIATRY [facility] Active, Pending, and Scheduled Orders This section includes a listing of several types of active, pending, and scheduled orders, including clinic medications orders, diagnostic test orders, procedure orders and consult orders; where the start date of the order is 45 days before the date of the Encounter or 45 days after the date of theEncounter. The data comes from all [place] treatment facilities. Test Date/Time Test Type Test Details Facility Name Sep 16, 2024 12:00 AM Laboratory - Chemi stry Order OCCULT BLOOD,FIT X1 SCREEN STOOL FECES SP [facility] Nov 19, 2024 12:00 AM Laboratory - Chemi stry Order UDS URINE [facility] Lab Results: +/- 30 days of the encounter This section includes the Chemistry and Hematology Lab Results on record with [facility] for the patient. Radiology Reports and Pathology Reports are provided separately, in subsequent sections. Lab Results This section contains the Chemistry/Hematology Results that were resulted 30 days before or 30 daysafter the date of the Encounter. Date/Time Source Result Type Result - Unit Interpretation Reference Range Specimen Type Comment Oct 29, 2024 08:29 AM [facility] GCMS SCREEN,U/M URINE,RA NDOM Specimen Type: URINE,RANDOM [...] Oct 22, 2024 12:39 PM Reporting Lab: [address] [id number] Performing Lab: [facility] Dept of Pathology [facility] [id number] GCMS SCREEN,U/M comment Oct 29, 2024 08:29 AM [facility] TOX SCREEN ([facility]) URINE,RANDOM Specimen Type : URINE,RANDOM Comment: ~For Test: GCMS SCREEN,U/M ~apmphetamine metabolites Ordering Provider: ALEJANDRO CARTY Report Released Date/Time: Oct 22, 2024 12:39 PM Reporting Lab: [address] [address] Performing Lab: [address] [address] BENZODIAZEPINES Not Detected Not Detecte d CANNABINOIDS,URINE [...] and tobacco- related health factors from the [place] facility where the Encounter took place. Current Smoking Status This section includes the most current smoking, or tobacco-related health factor, from the [place] facility where the Encounter took place. Date/Time Current Smoking Status Comment Rom ity Feb 07, 2023 11:00 AM VA-TOBACCO USER EVERY DAY [facility] Tobacco Use History This section includes a history of the smoking, or tobacco-related health factors, that were collected on or before the date of the Encounter. The data comes from the [place] facility where the Encounter took place. Date/Time Smoking Status/Tobacco Use Comment F acility Feb 07, 2023 11:00 AM VA-TOBACCO USE ADVICE [facility] Feb 07, 2023 11:00 AM VA-TOBACCO USE ASSEMBLER ARRANGER YES [facility] Feb 07, 2023 11:00 AM VA-TOBACCO USE MED NOTIFY PROVIDER [facility] Feb 07, 2023 11:00 AM VA-TOBACCO USE WI 30 MIN OF WAKEUP [facility] Feb 07, 2023 11:00 AM VA-TOBACCO USER EVERY DAY [facility] Feb 16, 2022 01:00 PM VA-TOBACCO USE 30 YEARS OR MORE [facility] Feb 16, 2022 01:00 PM VA-TOBACCO USE ADVICE [facility] Feb 16, 2022 01:00 PM VA-TOBACCO USE ASSEMBLER ARRANGER NO [facility] Feb 16, 2022 01:00 PM VA-TOBACCO USE MED NO [facility] Feb 16, 2022 01:00 PM VA-TOBACCO USE WI 30 MIN OF WAKEUP [facility] Feb 16, 2022 01:00 PM VA-TOBACCO USER EVERY DAY [facility] Jun 21, 2020 04:12 AM CURRENT TOBACCO USER [facility] Jun 21, 2020 04:12 AM TOBACCO OFFERRED S TOP SMOKING CLINIC [facility] Jun 09, 2020 01:24 PM CURRENT TOBACCO USER [facility] Jun 09, 2020 01:24 PM TOBACCO OFFERRED S TOP SMOKING CLINIC [facility] Jul 24, 2019 01:11 PM VA-TOBACCO USE 30 YEARS OR MORE [facility] Jul 24, 2019 01:11 PM VA-TOBACCO USE ADVICE [facility] Jul 24, 2019 01:11 PM VA-TOBACCO USE ASSEMBLER ARRANGER NO [facility] Jul 24, 2019 01:11 PM VA-TOBACCO USE MED NO [facility] Jul 24, 2019 01:11 PM VA-TOBACCO USE WI 30 MIN OF WAKEUP [facility] Jul 24, 2019 01:11 PM VA-TOBACCO USER EVERY DAY [facility] March 23, 2018 09:34 AM SMOKING CESSATION NO [facility] March 16, 2018 08:14 PM CURRENT TOBACCO USER [facility] March 16, 2018 08:14 PM SMOKER - OFFERRED MEDS (PROVIDER) [facility] March 16, 2018 08:14 PM TOBACCO OFFERRED S TOP SMOKING CLINIC [facility] Advance Directives: All historical and current Section Date Range: From patient's date of to the date document was created. This section includes ALL of a patient's completed or amended [place] Advance and Rescinded Directives. The entries below indicate that a directive exists for the patient, but an actual copy is not included with this document. The data comes from all [place] facilities. Date Advance Directives Provider Source Nov 28, 2017 ADVANCE DIRECTIVE DISCUSSION JOSE ALEJANDRO BULLARD [facility] March 16, 2015 ADVANCE DIRECTIVE ISIDROCASEY ARELLANO Jarek [facility] Jun 30, 2014 ADVANCE DIRECTIVE DISCUSSION IVONE TOLEDO [facility] Jan 21, 2003 ADVANCE DIRECTIVE DISCUSSION TJ MERCADO Jan 07, 2003 ADVANCE DIRECTIVE DISCUSSION SANCHEZ BROWN Encounter Notes: All associated encounter notes This section contains the clinical notes associated to the Encounter. Date/Time Encounter Note(s) Provider Source Nov 26, 2024 08:23 AM ACCOUNTING OF DISC LOSURES NOTE: LOCAL TITLE: STATE PRESCRIPTION DRUG MONITORING PROGRAM STANDARD TITLE: ACCOUNTING OF DISCLOSURES NOTE DATE OF NOTE: NOV 26, 2024@08:23:14 ENTRY DATE: NOV 26, 2024@08:23:14 AUTHOR: ALEJANDRO CARTY EXP COSIGNER: URGENCY: STATUS: COMPLETED This PDMP query was submitted by Alejandro Carty MD. The clinical justification for this PDMP query is to review controlled substances prescribed outside of the [place], and any additional information that may become available, as an important component of standard clinical care, and in accordance with [facility] policy. Patient information was shared with the PDMP [place]. No prescription(s) for controlled substances outside the [place] were found in the last 90 days. /aren/ ALEJANDRO CARTY MD Staff Physician, [facility] Signed: 11/26/2024 08:23 ALEJANDRO CARTY [facility] Nov 22, 2024 03:31 PM ADMINISTRATIVE NOT E: LOCAL TITLE: ADMINISTRATIVE CONTINUITY STANDARD TITLE: ADMINISTRATIVE NOTE DATE OF NOTE: NOV 22, 2024@15:31 ENTRY DATE: NOV 22, 2024@15:31:45 AUTHOR: JOSÉ MIGUEL WHEELER EXP COSIGNER: URGENCY: STATUS: COMPLETED Date of Contact: Nov Type of Contact: phone: ADMINISTRATIVE COMMUNICATION (reason for contact): Patient requires medication renewal of the following medication: BUPRENORPHINE 8MG/NALOXONE 2MG FILM, SUBLINGUAL DISSOLVE 1 FILM UNDER THE TONGUE THREE TIMES A DAY Quantity: 84 Refills: 0 Indication: FOR OPIOID DEPENDENCE Patient contacted clinic requesting refill on the following medication. Please assist patient further. /aren/ JOSÉ MIGUEL WHEELER MSA Signed: 11/22/2024 15:55 Receipt Acknowledged By: 11/25/2024 10:01 /es/ LIO WALDRON REGISTERED NURSE for ROCHELLE BROOKS 11/25/2024 08:49 /es/ ALEJANDRO CARTY MD Staff Physician, [facility] JOSÉ MIGUEL WHEELER [facility] Nov 01, 2024 10:13 AM LETTERS: LOCAL TITLE: TEST RESULTS PATIENT LETTER (MAILED TO PATIENT) STANDARD TITLE: LETTERS DATE OF NOTE: NOV 01, 2024@10:13 ENTRY DATE: NOV 01, 2024@10:13:20 AUTHOR: ALEJANDRO CARTY EXP COSIGNER: URGENCY: STATUS: COMPLETED [address] [address] NOV 01, 2024 AARON TRUJILLO [address] [place] [address] Dear Mr. Aaron Trujillo : I would like to update you on your recent lab results: TOX SCREEN ([facility]) URINE,RANDOM SP LB #[id number] Collection time: Oct 29, 2024@08:29 Test Name Result Units Range --------- ------ ----- ----- AMPHETAMINES DETECTED H Ref: Not Detected BARBITURATES Not Detected Ref: Not Detected BENZODIAZEPINES Not Detected Ref: Not Detected CANNABINOIDS,URINE DETECTED H Ref: Not Detected COCAINE,URINE DETECTED H Ref: Not Detected OPIATES,URINE Not Detected Ref: Not Detected URINE METHADONE Not Detected Ref: Not Detected URINE OXYCODONE Not Detected Ref: Not Detected CREATININE,VERIFY 166 mg/dL URINE BUPRENORHINE DETECTED H Ref: Not Detected URINE FENTANYL Not Detected Ref: Not Detected Comments: Ordering Provider: Alejandro Carty MD Report Released Date/Time: Oct 29, 2024@09:27 Reporting Lab: [facility] [CLIA# [id number]] [address] [place] [id number] Performing Lab: [facility] [CLIA# [id number]] [address] [place] [id number] Collection time: Oct 29, 2024@08:29 Test Name Result Units Range --------- ------ ----- ----- GCMS SCREEN,U/M comment Comments: ~For Test: GCMS SCREEN,U/M ~apmphetamine metabolites Urine [...] Provider: Alejandro Carty MD Report Released Date/Time: Nov 01, 2024@09:00 Reporting Lab: [facility] [CLIA# [id number]] [address] [place] [id number] Performing Lab: LABS [CLIA# [id number]] [facility] Dept of Pathology [address] [place] [address] [place] [address] Sincerely, ALEJANDRO CARTY MD Staff Physician, [facility] JUANISAARON MARC ALLEN [facility] Oct 29, 2024 10:06 AM PSYCHIATRY MEDICAT ION MGT NOTE: LOCAL TITLE: PSYCHIATRY MEDICATION STANDARD TITLE: PSYCHIATRY MEDICATION MGT NOTE DATE OF NOTE: OCT 29, 2024@10:06 ENTRY DATE: OCT 29, 2024@10:06:33 AUTHOR: ALEJANDRO CARTY EXP COSIGNER: URGENCY: STATUS: COMPLETED [facility] PHYSICIAN SUBOXONE MEDICATION REVIEW PATIENT IDENTIFYING DATA Name: AARON TRUJILLO Social Security Number: [id number] Age: 64 Gender: MALE Date: OCT 29, 2024 Start/end time: DSM 5 DIAGNOSTIC IMPRESSION: Severe opioid use disorder, in sustained remission on maintenance therapy INTERVENTIONS: - Medication managment - Psychoeducation INTERIM HISTORY: seen for [id number] visit. Ran out of Suboxone 2 days ago, obtained a dose from a nonprescribed source yesterday. No withdrawal symptoms. Admits to ongoing and intermittent use of methamphetamine as well as cocaine, denies any opiate use, denies alcohol use. [place] reports use of stimulants (usually methamphetamine, cocaine if it is available), on average 1-2 times weekly. This is dependent on his roommate obtaining supply, which only happens intermittently. He described the experience of hearing his roommate supplying methamphetamine to another person, and almost immediately biting himself handing over money before he even gave it much thought. His continued use seems situational, as he does avoid use on days when he does not have access. Occasional opiate cravings, though reports he has taken his Suboxone as directed, and this has been helpful to maintain opiate abstinence. Devin also reports continued cigarette smoking. Approximate 1/2 pack/day, has noted some recurrent cough and dyspnea. Is very interested in quitting smoking again, though not ready to commit to medications or set a quit date. Devin is focused (appropriately so), on his current living situation which leaves him both isolated, and with continued exposure to methamphetamine. He is able to articulate that moving from his current setting would likely help with his goal of abstinence from stimulants. We discussed next steps to try and facilitate this, and he will consider stopping at the social work office today to inquire as to the status of his [facility] status, and to see what options they might be able to provide. Devin now has more stable access to his phone. I was able to contact him by phone last week. He remains interested in the [facility] residential program. With more stable phone access, I think it is reasonable to place a consult again to see if he could be engaged by their program. I also gave him the phone number and extension to their program to try and facilitate communication. Devin admitted to feeling depressed and irritable frequently. This is primarily focused around his living situation, and frustration with his roommate. Denied suicidal thoughts, does have some hope that things can improve. Devin will tow picker a refill Suboxone today. He already completed his urine drug screen. He confirmed that with appropriate notice he has [facility] transportation available to him. I have asked that he return for an in person visit in 1 month on November 26. Acute Intoxication No Acute Withdrawal No Last UDS: See below UDS Collected today?: Yes Cravings:No Medication SE:Denies Substance Use: See above Desire to Titrate?: No If yes, then when: MENTAL STATUS EXAM: Speech: normal rate and rhythm Mood: dysphoric Affect: Irritable Thought process: No alterations SI: Denies Insight: poor Judgment: fair Comments: MEDICATIONS: Active Outpatient Medications (including Supplies): Active Outpatient Medications Status 1) ALBUTEROL 90MCG (CFC-F) 200D ORAL INHL INHALE 2 PUFFS BY ACTIVE INHALATION EVERY 4 HOURS NEEDED Indication: FOR SHORTNESS OF BREATH 2) BUPRENORPHINE 8MG/NALOXONE 2MG SL FILM DISSOLVE 1 FILM UNDER ACTIVE THE TONGUE THREE TIMES A DAY Indication: FOR OPIOID DEPENDENCE 3) GABAPENTIN 600MG TAB TAKE ONE TABLET BY MOUTH THREE TIMES A ACTIVE DAY Indication: FOR NERVE PAIN 4) LEVOTHYROXINE NA (SYNTHROID) 150MCG TAB TAKE ONE TABLET BY ACTIVE MOUTH EVERY DAY IN THE MORNING Indication: FOR THYROID 5) NALOXONE HCL 4MG/SPRAY SOLN NASAL SPRAY INSTILL 1 SPRAY IN ACTIVE NOSE ONCE DO NOT PRIME OR TEST THE SPRAY DEVICE. GENTLY INSERT TIP INTO ONE NOSTRIL AND PRESS THE PLUNGER FIRMLY TO GIVE THE ENTIRE DOSE. USE EACH DEVICE ONLY ONCE. Indication: FOR SUSPECTED OPIOID OVERDOSE Pending Outpatient Medications Status 1) BUPRENORPHINE 8MG/NALOXONE 2MG SL FILM DISSOLVE 1 FILM UNDER PENDING THE TONGUE THREE TIMES A DAY Indication: FOR OPIOID DEPENDENCE 6 Total Medications LABS: Collection DT Specimen Test Name Result Units Ref Range 10/29/2024 08:29 URINE AMPHETAMINES DETECTED H Ref: Not Detected 09/26/2024 13:11 URINE AMPHETAMINES DETECTED H Ref: Not Detected 08/06/2024 10:14 URINE AMPHETAMINES DETECTED H Ref: Not Detected 10/29/2024 08:29 URINE BENZODIAZEPINES Not Detected Ref: Not Detected 09/26/2024 13:11 URINE BENZODIAZEPINES Not Detected Ref: Not Detected 08/06/2024 10:14 URINE BENZODIAZEPINES Not Detected Ref: Not Detected 10/29/2024 08:29 URINE CANNABINOIDS,URINDETECTED H Ref: Not Detected 09/26/2024 13:11 URINE CANNABINOIDS,URINNot Detected Ref: Not Detected 08/06/2024 10:14 URINE CANNABINOIDS,URINDETECTED H Ref: Not Detected 10/29/2024 08:29 URINE URINE METHADONE Not Detected Ref: Not Detected 09/26/2024 13:11 URINE URINE METHADONE Not Detected Ref: Not Detected 08/06/2024 10:14 URINE URINE METHADONE Not Detected Ref: Not Detected 10/29/2024 08:29 URINE OPIATES,URINE Not Detected Ref: Not Detected 09/26/2024 13:11 URINE OPIATES,URINE DETECTED H Ref: Not Detected 08/06/2024 10:14 URINE OPIATES,URINE Not Detected Ref: Not Detected 10/29/2024 08:29 URINE BARBITURATES Not Detected Ref: Not Detected 09/26/2024 13:11 URINE BARBITURATES Not Detected Ref: Not Detected 08/06/2024 10:14 URINE BARBITURATES Not Detected Ref: Not Detected 10/29/2024 08:29 URINE COCAINE,URINE DETECTED H Ref: Not Detected 09/26/2024 13:11 URINE COCAINE,URINE Not Detected Ref: Not Detected 08/06/2024 10:14 URINE COCAINE,URINE Not Detected Ref: Not Detected 10/29/2024 08:29 URINE CREATININE,VERIFY 166 mg/dL 09/26/2024 13:11 URINE CREATININE,VERIFY 152 mg/dL 08/06/2024 10:14 URINE CREATININE,VERIFY 181 mg/dL Assessment/Summary: 64 yo male with severe OUD on agonist therapy (Suboxone) TREATMENT PLAN REVIEW/UPDATE: is engaged in opiate agonist therapy based on evidence based treatment guidelines and treatment plan. --PDMP Query: Done, no concerning Rx information --Naloxone Kit: UTD --Consulting Psychiatrist for Psychiatric Medication Management: No current psychiatric issues requiring psychiatric pharmacotherapy. --Suboxone Refill: Refill for tow picker --Other medical/medication Issues: N/A --RTC (F2F) 11-26-24@1000 /es/ ALEJANDRO CARTY MD Staff Physician, [facility] Signed: 10/29/2024 10:14 ALEJANDRO CARTY [facility]
--- OUTSIDE RECORDS SUMMARY | 2024-11-26 06:00 | XMS_ITS | Encounter Summary ---
Author Name [facility] ([place]) Organization [facility] ([place]) Address [address] [place] [id number] Care Team Providers Care Oncology Transplant Network Manager Name Role Phone SEAN TRACY Primary Care [...] Lemon's Name Patient's Relationship to Policy Lemon [facility] (WN) MEDICARE ADVANTAGE [facility] ([facility]) March 13, 2017 [id number] HEDY OLIVAREZ PATIENT MEDICARE (WNR) MEDICARE (M) PART B March 13, 2014 PART B [id number] HEDY OLIVAREZ PATIENT MEDICARE (WNR) MEDICARE (M) PART B March 13, 2014 PART B [id number] HEDY OLIVAREZ PATIENT MEDICARE (WNR) MEDICARE (M) PART B March 13, 2014 PART B [id number] HEDY OLIVAREZ PATIENT MEDICARE (WNR) MEDICARE (M) PART B March 13, 2014 PART B [id number] HEDY OLIVAREZ PATIENT MEDICARE (WNR) MEDICARE (M) PART B March 13, 2014 PART B [id number] HEDY OLIVAREZ PATIENT MEDICARE (WNR) MEDICARE (M) PART B March 13, 2014 PART B [id number] HEDY OLIVAREZ PATIENT MEDICARE (WNR) MEDICARE (M) PART B March 13, 2014 PART B [id number] HEDY OLIVAREZ PATIENT MEDICARE (WNR) MEDICARE (M) PART B March 13, 2014 PART B [id number] HEDY OLIVAREZ PATIENT MEDICARE (WNR) MEDICARE (M) PART B March 13, 2014 PART B [id number] HEDY OLIVAREZ PATIENT MEDICARE (WNR) MEDICARE (M) PART B Jan 11, 2003 PART B [id number] HEDY OLIVAREZ PATIENT MEDICARE (WNR) MEDICARE (M) PART B Jan 11, 2003 PART B [id number] HEDY OLIVAREZ PATIENT MEDICARE (WNR) MEDICARE (M) PART B Jan 11, 2003 PART B [id number] HEDY OLIVAREZ PATIENT MEDICARE (WNR) MEDICARE (M) PART B Jan 11, 2003 PART B [id number] HEDY OLIVAREZ PATIENT MEDICARE (WNR) MEDICARE (M) PART A Nov 13, 2000 PART A [id number] HEDY OLIVAREZ PATIENT MEDICARE (WNR) MEDICARE (M) PART A Nov 13, 2000 PART A [id number] HEDY OLIVAREZ PATIENT MEDICARE (WNR) MEDICARE (M) PART A Nov 13, 2000 PART A [id number] HEDY OLIVAREZ PATIENT MEDICARE (WNR) MEDICARE (M) PART A Nov 13, 2000 PART A [id number] HEDY OLIVAREZ PATIENT MEDICARE (WNR) MEDICARE (M) PART A Jul 14, 1995 PART A [id number] HEDY OLIVAREZ PATIENT MEDICARE (WNR) MEDICARE (M) PART A Jul 14, 1995 PART A [id number] HEDY OLIVAREZ PATIENT MEDICARE (WNR) MEDICARE (M) PART A Jul 14, 1995 PART A [id number] HEDY OLIVAREZ PATIENT MEDICARE (WNR) MEDICARE (M) PART B Jul 14, 1995 PART B [id number] HEDY OLIVAREZ PATIENT MEDICARE (WNR) MEDICARE (M) PART B Jul 14, 1995 PART B [id number] HEDY OLIVAREZ PATIENT MEDICARE (WNR) MEDICARE (M) PART A Jul 14, 1995 PART A [id number] HEDY OLIVAREZ PATIENT MEDICARE (WNR) MEDICARE (M) PART A Jul 14, 1995 PART A [id number] HEDY OLIVAREZ PATIENT MEDICARE (WNR) MEDICARE (M) PART A Jul 14, 1995 PART A [id number] HEDY OLIVAREZ PATIENT MEDICARE (WNR) MEDICARE (M) PART A Jul 14, 1995 PART A [id number] HEDY OLIVAREZ PATIENT MEDICARE (WNR) MEDICARE (M) PART A Jul 14, 1995 PART A [id number] HEDY OLIVAREZ PATIENT MEDICARE (WNR) MEDICARE (M) PART A Jul 14, 1995 PART A [id number] HEDY OLIVAREZ PATIENT MEDICARE (WNR) MEDICARE (M) PART A Jul 14, 1995 PART A [id number] HEDY OLIVAREZ PATIENT MEDICARE (WNR) MEDICARE (M) PART A Jul 14, 1995 PART A [id number] HEDY OLIVAREZ PATIENT MEDICARE PART D (WNR) MEDICARE (M) PART D Oct 13, 2022 PART D [id number] HEDY OLIVAREZ PATIENT [facility] MCR (WNR) MEDICARE ADVANTAGE MCR (WNR) Oct 13, 2022 [id number] HEDY OLIVAREZ PATIENT Selected Encounter This section includes the information on record at [place] for the Encounter. Date/Time Encounter Type Encounter Description Reason Provider Source Nov 26, 2024 10:00 AM OFFICE O/P EST SF 10 MIN SUBSTANCE USE DISORDER IND ICD-10-CM F11.21 Opioid dependence, in remission ALEJANDRO CARSON IHE Encounter Template Text not used by [place] Assessments - Encounter Diagnoses This section includes the primary and secondary diagnoses documented for the Encounter. Date/Time Primary/Secondary Diagnosis Diagnosis Name Provider Source Nov 26, 2024 09:23 AM PRIMARY Opioid dependence, in remission ALEJANDRO CARSON [facility] Plan of Treatment: Future Appointments (+ 6 months) and Future Tests (+/- 45 days) The Plan of Treatment section includes future care activities for the patient from all [place] treatmentfacilities. This section includes future appointments and future orders which are active, pending or scheduled. Future Appointments This section includes appointments that were scheduled to occur 6 months from the date of the Encounter, up to a maximum of 20 appointments. The data comes from all [place] treatment facilities. Appointment Date/Time Appointment Type Appointme nt Facility Name Dec 24, 2024 11:00 AM AMBULATORY - PSYCHIATRY [facility] Dec 31, 2024 09:00 AM AMBULATORY - PSYCHIATRY [facility] Dec 31, 2024 02:30 PM AMBULATORY - PSYCHIATRY [facility] Jan 07, 2025 10:00 AM AMBULATORY - PSYCHIATRY [facility] Jan 28, 2025 10:00 AM AMBULATORY - PSYCHIATRY [facility] Jan 28, 2025 11:50 AM AMBULATORY - MEDICINE [facility] Feb 07, 2025 08:30 AM AMBULATORY - MEDICINE [facility] Feb 13, 2025 08:00 AM AMBULATORY - PSYCHIATRY [facility] Feb 25, 2025 11:00 AM AMBULATORY - PSYCHIATRY [facility] Feb 27, 2025 11:00 AM AMBULATORY - SURGERY [facility] March 25, 2025 10:30 AM AMBULATORY - PSYCHIATRY [facility] Active, Pending, and Scheduled Orders This section includes a listing of several types of active, pending, and scheduled orders, including clinic medications orders, diagnostic test orders, procedure orders and consult orders; where the start date of the order is 45 days before the date of the Encounter or 45 days after the date of theEncounter. The data comes from all [place] treatment facilities. Test Date/Time Test Type Test Details Facility Name Nov 19, 2024 12:00 AM Laboratory - Chemi stry Order UDS URINE [facility] DOM Lab Results: +/- 30 days of the encounter This section includes the Chemistry and Hematology Lab Results on record with [place] for the patient. Radiology Reports and Pathology Reports are provided separately, in subsequent sections. Lab Results This section contains the Chemistry/Hematology Results that were resulted 30 days before or 30 daysafter the date of the Encounter. Date/Time Source Result Type Result - Unit Interpretation Reference Range Specimen Type Comment Oct 29, 2024 08:29 AM [facility] GCMS SCREEN,U/M URINE,RA NDOM Specimen Type: [...] Ordering Provider: ALEJANDRO CARSON Report Released Date/Time: Oct 22, 2024 12:39 PM Reporting Lab: [address] [address] Performing Lab: [facility] Dept of Pathology [facility] [id number] GCMS SCREEN,U/M comment Oct 29, 2024 08:29 AM [facility] TOX SCREEN ([facility]) URINE,RANDOM Specimen Type : URINE,RANDOM Comment: ~For Test: GCMS SCREEN,U/M ~apmphetamine metabolites Ordering Provider: ALEJANDRO CARSON Report Released Date/Time: Oct 22, 2024 12:39 PM Reporting Lab: [address] [id number] Performing Lab: [address] [address] BENZODIAZEPINES Not Detected Not Detecte d CANNABINOIDS,URINE [...] and tobacco- related health factors from the [place] facility where the Encounter took place. Current Smoking Status This section includes the most current smoking, or tobacco-related health factor, from the [place] facility where the Encounter took place. Date/Time Current Smoking Status Comment Facil ity Feb 07, 2023 11:00 AM VA-TOBACCO USER EVERY DAY [facility] Tobacco Use History This section includes a history of the smoking, or tobacco-related health factors, that were collected on or before the date of the Encounter. The data comes from the [place] facility where the Encounter took place. Date/Time Smoking Status/Tobacco Use Comment F acility Feb 07, 2023 11:00 AM VA-TOBACCO USE ADVICE [facility] Feb 07, 2023 11:00 AM VA-TOBACCO USE CREDENTIALING ANALYST YES [facility] Feb 07, 2023 11:00 AM VA-TOBACCO USE MED NOTIFY PROVIDER [facility] Feb 07, 2023 11:00 AM VA-TOBACCO USE WI 30 MIN OF WAKEUP [facility] Feb 07, 2023 11:00 AM VA-TOBACCO USER EVERY DAY [facility] Feb 16, 2022 01:00 PM VA-TOBACCO USE 30 YEARS OR MORE [facility] Feb 16, 2022 01:00 PM VA-TOBACCO USE ADVICE [facility] Feb 16, 2022 01:00 PM VA-TOBACCO USE CREDENTIALING ANALYST NO [facility] Feb 16, 2022 01:00 PM VA-TOBACCO USE MED NO [facility] Feb 16, 2022 01:00 PM VA-TOBACCO USE WI 30 MIN OF WAKEUP [facility] Feb 16, 2022 01:00 PM VA-TOBACCO USER EVERY DAY [facility] Jun 21, 2020 04:12 AM CURRENT TOBACCO USER [facility] Jun 21, 2020 04:12 AM TOBACCO OFFERRED S TOP SMOKING CLINIC [facility] Jun 09, 2020 01:24 PM CURRENT TOBACCO USER [facility] Jun 09, 2020 01:24 PM TOBACCO OFFERRED S TOP SMOKING CLINIC [facility] Jul 24, 2019 01:11 PM VA-TOBACCO USE 30 YEARS OR MORE [facility] Jul 24, 2019 01:11 PM VA-TOBACCO USE ADVICE [facility] Jul 24, 2019 01:11 PM VA-TOBACCO USE CREDENTIALING ANALYST NO [facility] Jul 24, 2019 01:11 PM VA-TOBACCO USE MED NO [facility] Jul 24, 2019 01:11 PM VA-TOBACCO USE WI 30 MIN OF WAKEUP [facility] Jul 24, 2019 01:11 PM VA-TOBACCO USER EVERY DAY [facility] March 23, 2018 09:34 AM SMOKING CESSATION NO [facility] March 16, 2018 08:14 PM CURRENT TOBACCO USER [facility] March 16, 2018 08:14 PM SMOKER - OFFERRED MEDS (PROVIDER) [facility] March 16, 2018 08:14 PM TOBACCO OFFERRED S TOP SMOKING CLINIC [facility] Advance Directives: All historical and current Section Date Range: From patient's date of to the date document was created. This section includes ALL of a patient's completed or amended [place] Advance and Rescinded Directives. The entries below indicate that a directive exists for the patient, but an actual copy is not included with this document. The data comes from all [facility]. Date Advance Directives Provider Source Nov 28, 2017 ADVANCE DIRECTIVE DISCUSSION JOSE ALEJANDRO BULLARD [facility] March 16, 2015 ADVANCE DIRECTIVE CASEY FELIX [facility] Jun 30, 2014 ADVANCE DIRECTIVE DISCUSSION IVONE [facility] Jan 21, 2003 ADVANCE DIRECTIVE DISCUSSION TJ MERCADO Jan 07, 2003 ADVANCE DIRECTIVE DISCUSSION SANCHEZ BROWN Encounter Notes: All associated encounter notes This section contains the clinical notes associated to the Encounter. Date/Time Encounter Note(s) Provider Source Dec 24, 2024 09:45 AM ACCOUNTING OF DISC LOSURES NOTE: LOCAL TITLE: STATE PRESCRIPTION DRUG MONITORING PROGRAM STANDARD TITLE: ACCOUNTING OF DISCLOSURES NOTE DATE OF NOTE: DEC 24, 2024@09:45:04 ENTRY DATE: DEC 24, 2024@09:45:04 AUTHOR: ALEJANDRO CARSON EXP COSIGNER: URGENCY: STATUS: COMPLETED This PDMP query was submitted by Alejandro Carson MD. The clinical justification for this PDMP query is to review controlled substances prescribed outside of the [facility], and any additional information that may become available, as an important component of standard clinical care, and in accordance with [facility] policy. Patient information was shared with the PDMP Appriss Bovey. No prescription(s) for controlled substances outside the [facility] were found in the last 90 days. /aren/ LAEJANDRO CARSON MD Staff Physician, [facility] Abuse [facility] Signed: 12/24/2024 09:45 ALEJANDRO CARSON [facility] Nov 26, 2024 09:15 AM PSYCHIATRY TELEPHO NE ENCOUNTER NOTE: LOCAL TITLE: PSYCHIATRY TELEPHONE STANDARD TITLE: PSYCHIATRY TELEPHONE ENCOUNTER NOTE DATE OF NOTE: NOV 26, 2024@09:15 ENTRY DATE: NOV 26, 2024@09:15:21 AUTHOR: ALEJANDRO CARSON EXP COSIGNER: URGENCY: STATUS: COMPLETED SAC PHYSICIAN SUBOXONE MEDICATION REVIEW PATIENT IDENTIFYING DATA Name: AARON OLIVAREZ Social Security Number: [id number] Age: 64 Gender: MALE Date: NOV 26, 2024 *Two patient identifiers were confirmed. This appointment was conducted as telephone visit because of: Preference [place] was agreeable to telehealth in lieu of face to face per COVID-19 precautions. Start/end time: 9474-0979 DSM 5 DIAGNOSTIC IMPRESSION: Severe opioid use disorder, in sustained remission on maintenance therapy INTERVENTIONS: - Medication managment - Psychoeducation INTERIM HISTORY: Called at phone number [phone]. [place] answered, speech clear. [place] reports he was hospitalized last week, discharged last Monday. Since that time he denies any illicit drug use or alcohol use, no acute mental health concerns. Regarding recent hospitalization, he reports he had been drinking alcohol earlier last week. Reports this has been atypical for him though he acknowledged he has had significant alcohol dependence in the past. He last recalls going to use the bathroom, then states I woke up in the hospital . He was told he had a seizure episode, was started on seizure prophylaxis with Keppra. He reports since discharge, he has been abstinent from alcohol and from methamphetamine and cocaine use. Prior to the episode, he had reengaged with his friend who has long-term recovery. This had led to a supportive relationship in the past 2 weeks, and he reports he had not used methamphetamine for approximately a week prior to his hospitalization. Devin remains interested in engaging with the [facility] program. I encouraged him to contact them today to assess whether he could still be admitted. Previously had a tentative start date of November 19. He reports he currently has transportation issues, and was unable to attend our scheduled in person appointment today. He was amenable to completing our appointment by phone. reports he has been taking his Suboxone as directed. Is now running out. He was amenable to [employer] refill for this month. Strongly encouraged him to contact the [facility] program to assess whether he remains a candidate for admission. I have offered to see him for follow-up in 1 month, but I think that needs to be an in person appointment. He reports he can arrange transportation for an appointment on December 24. Acute Intoxication No Acute Withdrawal No Last UDS: See below UDS Collected today?: No Cravings:No Medication SE:Denies Substance Use: See above Desire to Titrate?: No If yes, then when: MENTAL STATUS EXAM: Speech: normal rate and rhythm Mood: dysphoric Affect: Appropriate Thought process: No alterations SI: Not asked, no evidence of instability Insight: fair Judgment: fair Comments: MEDICATIONS: Active Outpatient Medications (including Supplies): Active Outpatient Medications Status 1) ALBUTEROL 90MCG (CFC-F) 200D ORAL INHL INHALE 2 PUFFS BY ACTIVE INHALATION EVERY 4 HOURS NEEDED Indication: FOR SHORTNESS OF BREATH 2) BUPRENORPHINE 8MG/NALOXONE 2MG SL FILM DISSOLVE 1 FILM UNDER ACTIVE THE TONGUE THREE TIMES A DAY Indication: FOR OPIOID DEPENDENCE 3) LEVOTHYROXINE NA (SYNTHROID) 150MCG TAB TAKE ONE TABLET BY ACTIVE MOUTH EVERY DAY IN THE MORNING Indication: FOR THYROID 4) NALOXONE HCL 4MG/SPRAY SOLN NASAL SPRAY INSTILL [...] TIMES A DAY Indication: FOR OPIOID DEPENDENCE 5 Total Medications LABS: Collection DT Specimen Test [...] on agonist therapy (Suboxone) TREATMENT PLAN REVIEW/UPDATE: [place] is engaged in opiate agonist therapy based on evidence based treatment guidelines and treatment plan. --PDMP Query: Done, no concerning Rx information --Naloxone Kit: UTD --Consulting Psychiatrist for Psychiatric Medication Management: No current psychiatric issues requiring psychiatric pharmacotherapy. --Suboxone Refill: Refill by UPS --Other medical/medication Issues: Pending follow up with [facility] --RTC (F2F) 12-24-24@1100 /es/ ALEJANDRO CARSON MD Staff Physician, [facility] Signed: 11/26/2024 09:23 ALEJANDRO CARSON [facility]
--- OUTSIDE RECORDS SUMMARY | 2024-12-24 07:00 | XMS_ITS | Encounter Summary ---
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 Name Role Phone SEAN TRACY Primary Care [...] Lemon's Name Patient's Relationship to Policy [facility] (WN) MEDIC[facility] ADVANTAGE [facility] [facility]) March 13, 2017 [id number] HEDY OLIVAREZ PATIENT MEDICARE (WN) MEDICARE (M) PART B March 13, 2014 PART B [id number] HEDY OLIVAREZ PATIENT MEDICARE (WNR) MEDICARE (M) PART B March 13, 2014 PART B [id number] HEDY OLIVAREZ PATIENT MEDICARE (WNR) MEDICARE (M) PART B March 13, 2014 PART B [id number] HEDY OLIVAREZ PATIENT MEDICARE (WNR) MEDICARE (M) PART B March 13, 2014 PART B [id number] HEDY OLIVAREZ PATIENT MEDICARE (WNR) MEDICARE (M) PART B March 13, 2014 PART B [id number] HEDY OLIVAREZ PATIENT MEDICARE (WNR) MEDICARE (M) PART B March 13, 2014 PART B [id number] HEDY OLIVAREZ PATIENT MEDICARE (WNR) MEDICARE (M) PART B March 13, 2014 PART B [id number] HEDY OLIVAREZ PATIENT MEDICARE (WNR) MEDICARE (M) PART B March 13, 2014 PART B [id number] HEDY OLIVAREZ PATIENT MEDICARE (WNR) MEDICARE (M) PART B March 13, 2014 PART B [id number] HEDY OLIVAREZ PATIENT MEDICARE (WNR) MEDICARE (M) PART B Jan 11, 2003 PART B [id number] HEDY OLIVAREZ PATIENT MEDICARE (WNR) MEDICARE (M) PART B Jan 11, 2003 PART B [id number] HEDY OLIVAREZ PATIENT MEDICARE (WNR) MEDICARE (M) PART B Jan 11, 2003 PART B [id number] HEDY OLIVAREZ PATIENT MEDICARE (WNR) MEDICARE (M) PART B Jan 11, 2003 PART B [id number] HEDY OLIVAREZ PATIENT MEDICARE (WNR) MEDICARE (M) PART A Nov 13, 2000 PART A [id number] HEDY OLIVAREZ PATIENT MEDICARE (WNR) MEDICARE (M) PART A Nov 13, 2000 PART A [id number] HEDY OLIVAREZ PATIENT MEDICARE (WNR) MEDICARE (M) PART A Nov 13, 2000 PART A [id number] HEDY OLIVAREZ PATIENT MEDICARE (WNR) MEDICARE (M) PART A Nov 13, 2000 PART A [id number] HEDY OLIVAREZ PATIENT MEDICARE (WNR) MEDICARE (M) PART A Jul 14, 1995 PART A [id number] HEDY OLIVAREZ PATIENT MEDICARE (WNR) MEDICARE (M) PART A Jul 14, 1995 PART A [id number] HEDY OLIVAREZ PATIENT MEDICARE (WNR) MEDICARE (M) PART A Jul 14, 1995 PART A [id number] HEDY OLIVAREZ PATIENT MEDICARE (WNR) MEDICARE (M) PART B Jul 14, 1995 PART B [id number] HEDY OLIVAREZ PATIENT MEDICARE (WNR) MEDICARE (M) PART B Jul 14, 1995 PART B [id number] HEDY OLIVAREZ PATIENT MEDICARE (WNR) MEDICARE (M) PART A Jul 14, 1995 PART A [id number] HEDY OLIVAREZ PATIENT MEDICARE (WNR) MEDICARE (M) PART A Jul 14, 1995 PART A [id number] HEDY OLIVAREZ PATIENT MEDICARE (WNR) MEDICARE (M) PART A Jul 14, 1995 PART A [id number] HEDY OLIVAREZ PATIENT MEDICARE (WNR) MEDICARE (M) PART A Jul 14, 1995 PART A [id number] HEDY OLIVAREZ PATIENT MEDICARE (WNR) MEDICARE (M) PART A Jul 14, 1995 PART A [id number] HEDY OLIVAREZ PATIENT MEDICARE (WNR) MEDICARE (M) PART A Jul 14, 1995 PART A [id number] HEDY OLIVAREZ PATIENT MEDICARE (WNR) MEDICARE (M) PART A Jul 14, 1995 PART A [id number] HEDY OLIVAREZ PATIENT MEDICARE (WNR) MEDICARE (M) PART A Jul 14, 1995 PART A [id number] HEDY OLIVAREZ PATIENT MEDICARE PART D (WNR) MEDICARE (M) PART D Oct 13, 2022 PART D [id number] HEDY OLIVAREZ PATIENT [facility] MCR (WNR) MEDICARE ADVANTAGE MCR (WNR) Oct 13, 2022 [id number] HEDY OLIVAREZ PATIENT Selected Encounter This section includes the information on record at [place] for the Encounter. Date/Time Encounter Type Encounter Description Reason Pro vider Source Dec 24, 2024 11:00 AM Outpatient Encounter SUBSTANCE USE DISORDER IND IHE Encounter Template Text not used by [place] Plan of Treatment: Future Appointments (+ 6 months) and Future Tests (+/- 45 days) The Plan of Treatment section includes future care activities for the patient from [facility] [place] [facility] This section includes future appointments and future orders which are active, pending or scheduled. Future Appointments This section includes appointments that were scheduled to occur 6 months from the date of the Encounter, up to a maximum of 20 appointments. The data comes from all [facility]. Appointment Date/Time Appointment Type Appointme nt Facility Name Dec 31, 2024 09:00 AM AMBULATORY - PSYCHIATRY [facility] Dec 31, 2024 02:30 PM AMBULATORY - PSYCHIATRY [facility] Jan 07, 2025 10:00 AM AMBULATORY - PSYCHIATRY [facility] Jan 28, 2025 10:00 AM AMBULATORY - PSYCHIATRY [facility] Jan 28, 2025 11:50 AM AMBULATORY - MEDICINE [facility] Feb 07, 2025 08:30 AM AMBULATORY - MEDICINE [facility] Feb 13, 2025 08:00 AM AMBULATORY - PSYCHIATRY [facility] Feb 25, 2025 11:00 AM AMBULATORY - PSYCHIATRY [facility] Feb 27, 2025 11:00 AM AMBULATORY - SURGERY [facility] March 25, 2025 10:30 AM AMBULATORY - PSYCHIATRY [facility] Active, Pending, and Scheduled Orders This section includes a listing of several types of active, pending, and scheduled orders, including clinic medications orders, diagnostic test orders, procedure orders and consult orders; where the start date of the order is 45 days before the date of the Encounter or 45 days after the date of theEncounter. The data comes from all [facility]. Test Date/Time Test Type Test Details Facility Name Nov 19, 2024 12:00 AM Laboratory - Chemi stry Order UDS URINE [facility] DOM Lab Results: +/- 30 days of the encounter This section includes the Chemistry and Hematology Lab Results on record with [place] for the patient. Radiology Reports and Pathology Reports are provided separately, in subsequent sections. Lab Results This section contains the Chemistry/Hematology Results that were resulted 30 days before or 30 daysafter the date of the Encounter. Date/Time Source Result Type Result - Unit Interpretation Reference Range Specimen Type Comment Dec 31, 2024 01:52 PM [facility] GCMS SCREEN,U/M URINE,RA NDOM Specimen Type: URINE,RANDOM Comment: ~For Test: GCMS SCREEN,U/M ~amphetamine metabolites Urine drug screen is POSITIVE. The following drugs were detected: Methamphetamine Amphetamine Gabapentin Naproxen Nicotine Cotinine Caffeine Ordering Provider: MARCIA CARTY Report Released Date/Time: Nov 26, 2024 09:15 AM Reporting Lab: [address] [id number] Performing Lab: [facility] Dept of Pathology [facility] [id number] GCMS SCREEN,U/M comment Dec 31, 2024 01:52 PM [facility] TOX SCREEN ([facility]) URINE,RANDOM Specimen Type : URINE,RANDOM Comment: ~For Test: GCMS SCREEN,U/M ~amphetamine metabolites Ordering Provider: MARCIA CARTY Report Released Date/Time: Nov 26, 2024 09:15 AM Reporting Lab: [address] [id number] Performing Lab: [address] [address] BENZODIAZEPINES Not Detected Not Detecte d CANNABINOIDS,URINE Not Detected Not Dete cted OPIATES,URINE Not Detected Not Detected AMPHETAMINES Not Detected Not Detected BARBITURATES Not Detected Not Detected COCAINE,URINE Not Detected Not Detected CREATININE,VERIFY 28 mg/dL URINE METHADONE Not Detected Not Detecte d URINE OXYCODONE Not Detected Not Detecte d URINE BUPRENORHINE DETECTED H Not Detected URINE FENTANYL Not Detected Not Detected Social History: Smoking Status (Most current) and Tobacco Use (All prior to encounter date) This section includes the most current, and the historical, smoking and tobacco- related health factors from the [place] facility where the Encounter took place. Current Smoking Status This section includes the most current smoking, or tobacco-related health factor, from the [place] facility where the Encounter took place. Date/Time Current Smoking Status Comment Rom ity Feb 07, 2023 11:00 AM VA-TOBACCO USER EVERY DAY [facility] Tobacco Use History This section includes a history of the smoking, or tobacco-related health factors, that were collected on or before the date of the Encounter. The data comes from the [place] facility where the Encounter took place. Date/Time Smoking Status/Tobacco Use Comment F acility Feb 07, 2023 11:00 AM VA-TOBACCO USE ADVICE [facility] Feb 07, 2023 11:00 AM VA-TOBACCO USE RIDING DOUBLE YES [facility] Feb 07, 2023 11:00 AM VA-TOBACCO USE MED NOTIFY PROVIDER [facility] Feb 07, 2023 11:00 AM VA-TOBACCO USE WI 30 MIN OF WAKEUP [facility] Feb 07, 2023 11:00 AM VA-TOBACCO USER EVERY DAY [facility] Feb 16, 2022 01:00 PM VA-TOBACCO USE 30 YEARS OR MORE [facility] Feb 16, 2022 01:00 PM VA-TOBACCO USE ADVICE [facility] Feb 16, 2022 01:00 PM VA-TOBACCO USE RIDING DOUBLE NO [facility] Feb 16, 2022 01:00 PM VA-TOBACCO USE MED NO [facility] Feb 16, 2022 01:00 PM VA-TOBACCO USE WI 30 MIN OF WAKEUP [facility] Feb 16, 2022 01:00 PM VA-TOBACCO USER EVERY DAY [facility] Jun 21, 2020 04:12 AM CURRENT TOBACCO USER [facility] Jun 21, 2020 04:12 AM TOBACCO OFFERRED S [facility] Jun 09, 2020 01:24 PM CURRENT TOBACCO USER [facility] Jun 09, 2020 01:24 PM TOBACCO OFFERRED S [facility] Jul 24, 2019 01:11 PM VA-TOBACCO USE 30 YEARS OR MORE [facility] Jul 24, 2019 01:11 PM VA-TOBACCO USE ADVICE [facility] Jul 24, 2019 01:11 PM VA-TOBACCO USE RIDING DOUBLE NO [facility] Jul 24, 2019 01:11 PM VA-TOBACCO USE MED NO [facility] Jul 24, 2019 01:11 PM VA-TOBACCO USE WI 30 MIN OF WAKEUP [facility] Jul 24, 2019 01:11 PM VA-TOBACCO USER EVERY DAY [facility] March 23, 2018 09:34 AM SMOKING CESSATION NO [facility] March 16, 2018 08:14 PM CURRENT TOBACCO USER [facility] March 16, 2018 08:14 PM [facility] March 16, 2018 08:14 PM TOBACCO OFFERRED S [facility] SMOKING CLINIC [facility] Advance Directives: All historical and current Section Date Range: From patient's date of to the date document was created. This section includes ALL of a patient's completed or amended [place] Advance and Rescinded Directives. The entries below indicate that a directive exists for the patient, but an actual copy is not included with this document. The data comes from all [facility]. Date Advance Directives Provider Source Nov 28, 2017 ADVANCE DIRECTIVE DISCUSSION JOSE ALEJANDRO BULLARD [facility] March 16, 2015 ADVANCE DIRECTIVE CASEY FELIX [facility] Jun 30, 2014 ADVANCE DIRECTIVE DISCUSSION IVONE [facility] Jan 21, 2003 ADVANCE DIRECTIVE DISCUSSION TJ MERCADO Jan 07, 2003 ADVANCE DIRECTIVE DISCUSSION SANCHEZ BROWN Encounter Notes: All associated encounter notes This section contains the clinical notes associated to the Encounter. Date/Time Encounter Note(s) Provider Source Dec 24, 2024 01:23 PM NO SHOW NOTE: LOCAL TITLE: PSYCHIATRY NO SHOW - CANCEL - RESCHEDULE STANDARD TITLE: NO SHOW NOTE DATE OF NOTE: DEC 24, 2024@13:23 ENTRY DATE: DEC 24, 2024@13:23:59 AUTHOR: MARCIA CARTY EXP COSIGNER: URGENCY: STATUS: [...] on separate days, followed by a letter. [place] does NOT have a [facility], and did not attend scheduled appointment on Dec@11:00. was NOT reachable by phone with the following results: Called at listed phone number. No answer, unable to leave message, mailbox not set up. will also be called by clinic MSAs, letter will be sent if patient cannot be reached by phone /aren/ MARCIA CARTY MD Staff Physician, [facility] Signed: 12/24/2024 13:24 MARCIA CARTY [facility]
--- OUTSIDE RECORDS SUMMARY | 2024-12-31 05:00 | XMS_ITS | Encounter Summary ---
Author Name [facility] Organization [facility] ([place]) Address [address] [place] [id number] Care Team Providers Care Special Assets Officer Name Role Phone SEAN TRACY Primary Care Provider UnavailLINDA Krishna Unavailable Unavailable JEAN CLAUDE THAO Primary Care Provider UnavailATNESHA De Leon Unavailable Unavailable YULIA SEGURA Unavailable [...] Lemon's Name Patient's Relationship to Policy Lemon [facility] (WN) MEDICARE ADVANTAGE [facility] March 13, 2017 [id number] HEDY OLIVAREZ PATIENT MEDICARE (WN) MEDICARE (M) PART B March 13, 2014 PART B [id number] HEDY OLIVAREZ PATIENT MEDICARE (WNR) MEDICARE (M) PART B March 13, 2014 PART B [id number] [phone] HEDY OLIVAREZ PATIENT MEDICARE (WN) MEDICARE (M) PART B March 13, 2014 PART B [id number] HEDY OLIVAREZ PATIENT MEDICARE (WNR) MEDICARE (M) PART B March 13, 2014 PART B [id number] HEDY OLIVAREZ PATIENT MEDICARE (WNR) MEDICARE (M) PART B March 13, 2014 PART B [id number] HEDY OLIVAREZ PATIENT MEDICARE (WNR) MEDICARE (M) PART B March 13, 2014 PART B [id number] HEDY OLIVAREZ PATIENT MEDICARE (WNR) MEDICARE (M) PART B March 13, 2014 PART B [id number] HEDY OLIVAREZ PATIENT MEDICARE (WNR) MEDICARE (M) PART B March 13, 2014 PART B [id number] HEDY OLIVAREZ PATIENT MEDICARE (WNR) MEDICARE (M) PART B March 13, 2014 PART B [id number] HEDY OLIVAREZ PATIENT MEDICARE (WNR) MEDICARE (M) PART B Jan 11, 2003 PART B [id number] HEDY OLIVAREZ PATIENT MEDICARE (WNR) MEDICARE (M) PART B Jan 11, 2003 PART B [id number] HEDY OLIVAREZ PATIENT MEDICARE (WNR) MEDICARE (M) PART B Jan 11, 2003 PART B [id number] HEDY OLIVAREZ PATIENT MEDICARE (WNR) MEDICARE (M) PART B Jan 11, 2003 PART B [id number] HEDY OLIVAREZ PATIENT MEDICARE (WNR) MEDICARE (M) PART A Nov 13, 2000 PART A [id number] HEDY OLIVAREZ PATIENT MEDICARE (WNR) MEDICARE (M) PART A Nov 13, 2000 PART A [id number] HEDY OLIVAREZ PATIENT MEDICARE (WNR) MEDICARE (M) PART A Nov 13, 2000 PART A [id number] HEDY OLIVAREZ PATIENT MEDICARE (WNR) MEDICARE (M) PART A Nov 13, 2000 PART A [id number] HEDY OLIVAREZ PATIENT MEDICARE (WNR) MEDICARE (M) PART A Jul 14, 1995 PART A [id number] HEDY OLIVAREZ PATIENT MEDICARE (WNR) MEDICARE (M) PART A Jul 14, 1995 PART A [id number] HEDY OLIVAREZ PATIENT MEDICARE (WNR) MEDICARE (M) PART A Jul 14, 1995 PART A [id number] HEDY OLIVAREZ PATIENT MEDICARE (WNR) MEDICARE (M) PART B Jul 14, 1995 PART B [id number] HEDY OLIVAREZ PATIENT MEDICARE (WNR) MEDICARE (M) PART B Jul 14, 1995 PART B [id number] HEDY OLIVAREZ PATIENT MEDICARE (WNR) MEDICARE (M) PART A Jul 14, 1995 PART A [id number] HEDY OLIVAREZ PATIENT MEDICARE (WNR) MEDICARE (M) PART A Jul 14, 1995 PART A [id number] HEDY OLIVAREZ PATIENT MEDICARE (WNR) MEDICARE (M) PART A Jul 14, 1995 PART A [id number] HEDY OLIVAREZ PATIENT MEDICARE (WNR) MEDICARE (M) PART A Jul 14, 1995 PART A [id number] HEDY OLIVAREZ PATIENT MEDICARE (WNR) MEDICARE (M) PART A Jul 14, 1995 PART A [id number] HEDY OLIVAREZ PATIENT MEDICARE (WNR) MEDICARE (M) PART A Jul 14, 1995 PART A [id number] HEDY OLIVAREZ PATIENT MEDICARE (WNR) MEDICARE (M) PART A Jul 14, 1995 PART A [id number] HEDY OLIVAREZ PATIENT MEDICARE (WNR) MEDICARE (M) PART A Jul 14, 1995 PART A [id number] HEDY OLIVAREZ PATIENT MEDICARE PART D (WNR) MEDICARE (M) PART D Oct 13, 2022 PART D [id number] HEDY OLIVAREZ PATIENT [facility] MCR (WNR) MEDICARE ADVANTAGE MCR (WNR) Oct 13, 2022 SARAH [id number] HEDY OLIVAREZ PATIENT Selected Encounter This section includes the information on record at [place] for the Encounter. Date/Time Encounter Type Encounter Description Reason Pro vider Source Dec 31, 2024 09:00 AM Outpatient Encounter SUBSTANCE USE DISORDER IND IHE Encounter Template Text not used by [place] Plan of Treatment: Future Appointments (+ 6 months) and Future Tests (+/- 45 days) The Plan of Treatment section includes future care activities for the patient from all [place] [facility]. This section includes future appointments and future orders which are active, pending or scheduled. Future Appointments This section includes appointments that were scheduled to occur 6 months from the date of the Encounter, up to a maximum of 20 appointments. The data comes from all [facility]. Appointment Date/Time Appointment Type Appointme nt Facility Name Jan 07, 2025 10:00 AM AMBULATORY - PSYCHIATRY [facility] Jan 28, 2025 10:00 AM AMBULATORY - PSYCHIATRY [facility] Jan 28, 2025 11:50 AM AMBULATORY - MEDICINE [facility] Feb 07, 2025 08:30 AM AMBULATORY - MEDICINE [facility] Feb 13, 2025 08:00 AM AMBULATORY - PSYCHIATRY [facility] Feb 25, 2025 11:00 AM AMBULATORY - PSYCHIATRY [facility] Feb 27, 2025 11:00 AM AMBULATORY - SURGERY [facility] March 25, 2025 10:30 AM AMBULATORY - PSYCHIATRY [facility] Active, Pending, and Scheduled Orders This section includes a listing of several types of active, pending, and scheduled orders, including clinic medications orders, diagnostic test orders, procedure orders and consult orders; where the start date of the order is 45 days before the date of the Encounter or 45 days after the date of theEncounter. The data comes from all [facility]. Test Date/Time Test Type Test Details Facility Name Nov 19, 2024 12:00 AM Laboratory - Chemi stry Order UDS URINE [facility] Lab Results: +/- 30 days of the encounter This section includes the Chemistry and Hematology Lab Results on record with [place] for the patient. Radiology Reports and Pathology Reports are provided separately, in subsequent sections. Lab Results This section contains the Chemistry/Hematology Results that were resulted 30 days before or 30 daysafter the date of the Encounter. Date/Time Source Result Type Result - Unit Interpretation Reference Range Specimen Type Comment Jan 28, 2025 09:08 AM [facility] GCMS SCREEN,U/M URINE,RA NDOM Specimen Type: URINE,RANDOM Comment: ~For Test: GCMS SCREEN,U/M ~amphetamine metatolites Urine drug screen is POSITIVE. The following drugs were detected: Methamphetamine Amphetamine Gabapentin Nicotine Cotinine Caffeine Ordering Provider: MARCIA CARTY Report Released Date/Time: Jan 28, 2025 08:56 AM Reporting Lab: [address] [phone] Performing Lab: [facility] Dept of Pathology [facility] [id number] GCMS SCREEN,U/M comment Jan 28, 2025 09:08 AM [facility] TOX SCREEN ([facility]) URINE,RANDOM Specimen Type : URINE,RANDOM Comment: ~For Test: GCMS SCREEN,U/M ~amphetamine metatolites Ordering Provider: MARCIA CARTY Report Released Date/Time: Dec 31, 2024 02:54 PM Reporting Lab: [address] [address] Performing Lab: [address] [address] BENZODIAZEPINES Not Detected Not Detecte d CANNABINOIDS,URINE Not Detected Not Dete cted OPIATES,URINE Not Detected Not Detected AMPHETAMINES DETECTED H Not Detected BARBITURATES Not Detected Not Detected COCAINE,URINE Not Detected Not Detected CREATININE,VERIFY 358 mg/dL URINE METHADONE Not Detected Not Detecte d URINE OXYCODONE Not Detected Not Detecte d URINE BUPRENORHINE DETECTED H Not Detected URINE FENTANYL Not Detected Not Detected Dec 31, 2024 01:52 PM [facility] GCMS SCREEN,U/M URINE,RANDOM Specimen Type: URINE,RANDOM Comment: ~For Test: GCMS SCREEN,U/M ~amphetamine metabolites Urine drug screen is POSITIVE. The following drugs were detected: Methamphetamine Amphetamine Gabapentin Naproxen Nicotine Cotinine Caffeine Ordering Provider: MARCIA CARTY Report Released Date/Time: Nov 26, 2024 09:15 AM Reporting Lab: [address] [address] Performing Lab: [facility] Dept of Pathology [facility] [phone] GCMS SCREEN,U/M comment Dec 31, 2024 01:52 PM [facility] TOX SCREEN ([facility]) URINE,RANDOM Specimen Type : URINE,RANDOM Comment: ~For Test: GCMS SCREEN,U/M ~amphetamine metabolites Ordering Provider: MARCIA CARTY Report Released Date/Time: Nov 26, 2024 09:15 AM Reporting Lab: [address] [address] Performing Lab: [address] [address] BENZODIAZEPINES Not Detected Not Detecte d CANNABINOIDS,URINE [...] and tobacco- related health factors from the [place] facility where the Encounter took place. Current Smoking Status This section includes the most current smoking, or tobacco-related health factor, from the [place] facility where the Encounter took place. Date/Time Current Smoking Status Comment Rom ity Feb 07, 2023 11:00 AM VA-TOBACCO USER EVERY DAY [facility] Tobacco Use History This section includes a history of the smoking, or tobacco-related health factors, that were collected on or before the date of the Encounter. The data comes from the [place] facility where the Encounter took place. Date/Time Smoking Status/Tobacco Use Comment F acility Feb 07, 2023 11:00 AM VA-TOBACCO USE ADVICE [facility] Feb 07, 2023 11:00 AM VA-TOBACCO USE [place] [employer] YES [facility] Feb 07, 2023 11:00 AM VA-TOBACCO USE MED NOTIFY PROVIDER [facility] Feb 07, 2023 11:00 AM VA-TOBACCO USE WI 30 MIN OF WAKEUP [facility] Feb 07, 2023 11:00 AM VA-TOBACCO USER EVERY DAY [facility] Feb 16, 2022 01:00 PM VA-TOBACCO USE 30 YEARS OR MORE [facility] Feb 16, 2022 01:00 PM VA-TOBACCO USE ADVICE [facility] Feb 16, 2022 01:00 PM VA-TOBACCO USE [place] [employer] NO [facility] Feb 16, 2022 01:00 PM VA-TOBACCO USE MED NO [facility] Feb 16, 2022 01:00 PM VA-TOBACCO USE WI 30 MIN OF WAKEUP [facility] Feb 16, 2022 01:00 PM VA-TOBACCO USER EVERY DAY [facility] Jun 21, 2020 04:12 AM CURRENT TOBACCO USER [facility] Jun 21, 2020 04:12 AM TOBACCO OFFERRED S TOP SMOKING CLINIC [facility] Jun 09, 2020 01:24 PM CURRENT TOBACCO USER [facility] Jun 09, 2020 01:24 PM TOBACCO OFFERRED S TOP SMOKING CLINIC [facility] Jul 24, 2019 01:11 PM VA-TOBACCO USE 30 YEARS OR MORE [facility] Jul 24, 2019 01:11 PM VA-TOBACCO USE ADVICE [facility] Jul 24, 2019 01:11 PM VA-TOBACCO USE [place] [employer] NO [facility] Jul 24, 2019 01:11 PM VA-TOBACCO USE MED NO [facility] Jul 24, 2019 01:11 PM VA-TOBACCO USE WI 30 MIN OF WAKEUP [facility] Jul 24, 2019 01:11 PM VA-TOBACCO USER EVERY DAY [facility] March 23, 2018 09:34 AM SMOKING CESSATION NO [facility] March 16, 2018 08:14 PM CURRENT TOBACCO USER [facility] March 16, 2018 08:14 PM SMOKER - OFFERRED MEDS (PROVIDER) [facility] March 16, 2018 08:14 PM TOBACCO OFFERRED S TOP SMOKING CLINIC [facility] Advance Directives: All historical and current Section Date Range: From patient's date of to the date document was created. This section includes ALL of a patient's completed or amended [place] Advance and Rescinded Directives. The entries below indicate that a directive exists for the patient, but an actual copy is not included with this document. The data comes from all [place] facilities. Date Advance Directives Provider Source Nov 28, 2017 ADVANCE DIRECTIVE DISCUSSION JOSE ALEJANDRO BULLARD [facility] March 16, 2015 ADVANCE DIRECTIVE CASEY FELIX [facility] Jun 30, 2014 ADVANCE DIRECTIVE DISCUSSION IVONE TOLEDO [facility] Jan 21, 2003 ADVANCE DIRECTIVE DISCUSSION TJ MERCADO Jan 07, 2003 ADVANCE DIRECTIVE DISCUSSION SANCHEZ BROWN Encounter Notes: All associated encounter notes This section contains the clinical notes associated to the Encounter. Date/Time Encounter Note(s) Provider Source Dec 31, 2024 01:29 PM NO SHOW NOTE: LOCAL TITLE: PSYCHIATRY NO SHOW - CANCEL - RESCHEDULE STANDARD TITLE: NO SHOW NOTE DATE OF NOTE: DEC 31, 2024@13:29 ENTRY DATE: DEC 31, 2024@13:30:08 AUTHOR: MARCIA CARTY EXP COSIGNER: URGENCY: STATUS: COMPLETED Note Title: PSYCHIATRY NO SHOW - CANCEL - RESCHEDULE No Show Reason for Cancellation: Per A Notice 2019-(2), For mental health appointments, (inclusive of consults, return to clinic orders, and failure to report (no-show)), the minimum scheduling effort for scheduling/rescheduling totals of four attempts; three documented contact attempts by telephone on separate days, followed by a letter. does NOT have a HRS-PRF, and did not attend scheduled appointment on Dec@09:00. [place] was NOT reachable by phone with the following results: Called at available phone number. No answer, unable to leave message, voicemail box full. /es/ MARCIA CARTY MD Staff Physician, [facility] Signed: 12/31/2024 13:30 MARCIA CARTY [facility]
--- OUTSIDE RECORDS SUMMARY | 2024-12-31 10:30 | XMS_ITS | Encounter Summary ---
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 Role Phone SEAN TRACY Primary Care [...] Lemon's Name Patient's Relationship to Policy Lemon [facility] (WNR) MEDICARE ADVANTAGE [facility] ([facility]) March 13, 2017 [id number] [phone] HEDY TRUJILLO PATIENT MEDICARE (WNR) MEDICARE (M) PART B March 13, 2014 PART B [id number] [phone] HEDY TRUJILLO PATIENT MEDICARE (WNR) MEDICARE (M) PART B March 13, 2014 PART B [id number] HEDY TRUJILLO PATIENT MEDICARE (WNR) MEDICARE (M) PART B March 13, 2014 PART B [id number] HEDY TRUJILLO PATIENT MEDICARE (WNR) MEDICARE (M) PART B March 13, 2014 PART B [id number] HEDY TRUJILLO PATIENT MEDICARE (WNR) MEDICARE (M) PART B March 13, 2014 PART B [id number] HEDY TRUJILLO PATIENT MEDICARE (WNR) MEDICARE (M) PART B March 13, 2014 PART B [id number] HEDY TRUJILLO PATIENT MEDICARE (WNR) MEDICARE (M) PART B March 13, 2014 PART B [id number] HEDY TRUJILLO PATIENT MEDICARE (WNR) MEDICARE (M) PART B March 13, 2014 PART B [id number] HEDY TRUJILLO PATIENT MEDICARE (WNR) MEDICARE (M) PART B March 13, 2014 PART B [id number] HEDY TRUJILLO PATIENT MEDICARE (WNR) MEDICARE (M) PART B Jan 11, 2003 PART B [id number] HEDY TRUJILLO PATIENT MEDICARE (WNR) MEDICARE (M) PART B Jan 11, 2003 PART B [id number] HEDY TRUJILLO PATIENT MEDICARE (WNR) MEDICARE (M) PART B Jan 11, 2003 PART B [id number] HEDY TRUJILLO PATIENT MEDICARE (WNR) MEDICARE (M) PART B Jan 11, 2003 PART B [id number] HEDY TRUJILLO PATIENT MEDICARE (WNR) MEDICARE (M) PART A Nov 13, 2000 PART A [id number] HEDY TRUJILLO PATIENT MEDICARE (WNR) MEDICARE (M) PART A Nov 13, 2000 PART A [id number] HEDY TRUJILLO PATIENT MEDICARE (WNR) MEDICARE (M) PART A Nov 13, 2000 PART A [id number] HEDY TRUJILLO PATIENT MEDICARE (WNR) MEDICARE (M) PART A Nov 13, 2000 PART A [id number] HEDY TRUJILLO PATIENT MEDICARE (WNR) MEDICARE (M) PART A Jul 14, 1995 PART A [id number] HEDY TRUJILLO PATIENT MEDICARE (WNR) MEDICARE (M) PART A Jul 14, 1995 PART A [id number] HEDY TRUJILLO PATIENT MEDICARE (WNR) MEDICARE (M) PART B Jul 14, 1995 PART B [id number] HEDY TRUJILLO PATIENT MEDICARE (WNR) MEDICARE (M) PART B Jul 14, 1995 PART B [id number] HEDY TRUJILLO PATIENT MEDICARE (WNR) MEDICARE (M) PART A Jul 14, 1995 PART A [id number] HEDY TRUJILLO PATIENT MEDICARE (WNR) MEDICARE (M) PART A Jul 14, 1995 PART A [id number] HEDY TRUJILLO PATIENT MEDICARE (WNR) MEDICARE (M) PART A Jul 14, 1995 PART A [id number] HEDY TRUJILLO PATIENT MEDICARE (WNR) MEDICARE (M) PART A Jul 14, 1995 PART A [id number] HEDY TRUJILLO PATIENT MEDICARE (WNR) MEDICARE (M) PART A Jul 14, 1995 PART A [id number] HEDY TRUJILLO PATIENT MEDICARE (WNR) MEDICARE (M) PART A Jul 14, 1995 PART A [id number] HEDY TRUJILLO PATIENT MEDICARE (WNR) MEDICARE (M) PART A Jul 14, 1995 PART A [id number] HEDY TRUJILLO PATIENT MEDICARE (WNR) MEDICARE (M) PART A Jul 14, 1995 PART A [id number] HEDY TRUJILLO PATIENT MEDICARE (WNR) MEDICARE (M) PART A Jul 14, 1995 PART A [id number] HEDY TRUJILLO PATIENT MEDICARE PART D (WNR) MEDICARE (M) PART D Oct 13, 2022 PART D [id number] HEDY TRUJILLO PATIENT [facility] MCR (WNR) MEDICARE ADVANTAGE MCR (WNR) Oct 13, 2022 [id number] HEDY TRUJILLO PATIENT Selected Encounter This section includes the information on record at [place] for the Encounter. Date/Time Encounter Type Encounter Description Reason Provider Source Dec 31, 2024 02:30 PM OFFICE O/P EST MOD 30 MIN SUBSTANCE USE DISORDER IND ICD-10-CM F11.21 Opioid dependence, in remission ALEJANDRO CARTY [facility] Encounter Template Text not used by MA Assessments - Encounter Diagnoses This section includes the primary and secondary diagnoses documented for the Encounter. Date/Time Primary/Secondary Diagnosis Diagnosis Name Provider Source Dec 31, 2024 03:08 PM PRIMARY Opioid dependence, in remission ALEJANDRO CARTY [facility] Dec 31, 2024 03:08 PM SECONDARY Other stimulant abuse, uncomplicated ALEJANDRO CARTY [facility] Plan of Treatment: Future Appointments (+ 6 months) and Future Tests (+/- 45 days) The Plan of Treatment section includes future care activities for the [facility] This section includes future appointments and future orders which are active, pending or scheduled. Future Appointments This section includes appointments that were scheduled to occur 6 months from the date of the Encounter, up to a maximum of 20 appointments. The data comes from all [place] treatment facilities. Appointment Date/Time Appointment Type Appointme nt Facility Name Jan 07, 2025 10:00 AM AMBULATORY - PSYCHIATRY [facility] Jan 28, 2025 10:00 AM AMBULATORY - PSYCHIATRY [facility] Jan 28, 2025 11:50 AM AMBULATORY - MEDICINE [facility] Feb 07, 2025 08:30 AM AMBULATORY - MEDICINE [facility] Feb 13, 2025 08:00 AM AMBULATORY - PSYCHIATRY [facility] Feb 25, 2025 11:00 AM AMBULATORY - PSYCHIATRY [facility] Feb 27, 2025 11:00 AM AMBULATORY - SURGERY [facility] March 25, 2025 10:30 AM AMBULATORY - PSYCHIATRY [facility] Active, Pending, and Scheduled Orders This section includes a listing of several types of active, pending, and scheduled orders, including clinic medications orders, diagnostic test orders, procedure orders and consult orders; where the start date of the order is 45 days before the date of the Encounter or 45 days after the date of theEncounter. The data comes from all [place] treatment facilities. Test Date/Time Test Type Test Details Facility Name Nov 19, 2024 12:00 AM Laboratory - Chemi stry Order UDS URINE [facility] Lab Results: +/- 30 days of the encounter This section includes the Chemistry and Hematology Lab Results on record with [place] for the patient. Radiology Reports and Pathology Reports are provided separately, in subsequent sections. Lab Results This section contains the Chemistry/Hematology Results that were resulted 30 days before or 30 daysafter the date of the Encounter. Date/Time Source Result Type Result - Unit Interpretation Reference Range Specimen Type Comment Jan 28, 2025 09:08 AM [facility] GCMS SCREEN,U/M URINE,RA NDOM Specimen Type: URINE,RANDOM Comment: ~For Test: GCMS SCREEN,U/M ~amphetamine metatolites Urine drug screen is POSITIVE. The following drugs were detected: Methamphetamine Amphetamine Gabapentin Nicotine Cotinine Caffeine Ordering Provider: ALEJANDRO CARTY Report Released Date/Time: Jan 28, 2025 08:56 AM Reporting Lab: [address] [address] Performing Lab: [facility] Dept of Pathology [facility] [address] GCMS SCREEN,U/M comment Jan 28, 2025 09:08 AM [facility] TOX SCREEN ([facility]) URINE,RANDOM Specimen Type : URINE,RANDOM Comment: ~For Test: GCMS SCREEN,U/M ~amphetamine metatolites Ordering Provider: ALEJANDRO CARTY Report Released Date/Time: Dec 31, 2024 02:54 PM Reporting Lab: [address] [address] Performing Lab: [address] [address] BENZODIAZEPINES Not Detected Not Detecte d CANNABINOIDS,URINE [...] Not Detected Dec 31, 2024 01:52 PM [facility] GCMS SCREEN,U/M URINE,RANDOM Specimen Type: URINE,RANDOM Comment: ~For Test: GCMS SCREEN,U/M ~amphetamine metabolites Urine drug screen is POSITIVE. The following drugs were detected: Methamphetamine Amphetamine Gabapentin Naproxen Nicotine Cotinine Caffeine Ordering Provider: ALJEANDRO CARTY Report Released Date/Time: Nov 26, 2024 09:15 AM Reporting Lab: [address] [address] Performing Lab: [facility] Dept of Pathology [facility] [address] GCMS SCREEN,U/M comment Dec 31, 2024 01:52 PM [facility] TOX SCREEN ([facility]) URINE,RANDOM Specimen Type : URINE,RANDOM Comment: ~For Test: GCMS SCREEN,U/M ~amphetamine metabolites Ordering Provider: ALEJANDRO CARTY Report Released Date/Time: Nov 26, 2024 09:15 AM Reporting Lab: [address] [address] Performing Lab: [address] [address] BENZODIAZEPINES Not Detected Not Detecte d CANNABINOIDS,URINE [...] and tobacco- related health factors from the [place] facility where the Encounter took place. Current Smoking Status This section includes the most current smoking, or tobacco-related health factor, from the [place] facility where the Encounter took place. Date/Time Current Smoking Status Comment Facil ity Feb 07, 2023 11:00 AM VA-TOBACCO USE WI 30 MIN OF WAKEUP [facility] Tobacco Use History This section includes a history of the smoking, or tobacco-related health factors, that were collected on or before the date of the Encounter. The data comes from the [place] facility where the Encounter took place. 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 [facility] Feb 07, 2023 11:00 AM VA-TOBACCO USE MED NOTIFY PROVIDER [facility] Feb 07, 2023 11:00 AM VA-TOBACCO USE WI 30 MIN OF WAKEUP [facility] Feb 07, 2023 11:00 AM VA-TOBACCO USER EVERY DAY [facility] Feb 16, 2022 01:00 PM VA-TOBACCO USE 30 YEARS OR MORE [facility] Feb 16, 2022 01:00 PM VA-TOBACCO USE ADVICE [facility] Feb 16, 2022 01:00 PM 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 [facility] Feb 16, 2022 01:00 PM VA-TOBACCO USE MED NO [facility] Feb 16, 2022 01:00 PM VA-TOBACCO USE WI 30 MIN OF WAKEUP [facility] Feb 16, 2022 01:00 PM VA-TOBACCO USER EVERY DAY [facility] Jun 21, 2020 04:12 AM CURRENT TOBACCO USER [facility] Jun 21, 2020 04:12 AM TOBACCO OFFERRED S TOP SMOKING CLINIC [facility] Jun 09, 2020 01:24 PM CURRENT TOBACCO USER [facility] Jun 09, 2020 01:24 PM TOBACCO OFFERRED S TOP SMOKING CLINIC [facility] Jul 24, 2019 01:11 PM VA-TOBACCO USE 30 YEARS OR MORE [facility] Jul 24, 2019 01:11 PM VA-TOBACCO USE ADVICE [facility] Jul 24, 2019 01:11 PM 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 [facility] Jul 24, 2019 01:11 PM VA-TOBACCO USE MED NO [facility] Jul 24, 2019 01:11 PM VA-TOBACCO USE WI 30 MIN OF WAKEUP [facility] Jul 24, 2019 01:11 PM VA-TOBACCO USER EVERY DAY [facility] March 23, 2018 09:34 AM SMOKING CESSATION NO [facility] March 16, 2018 08:14 PM CURRENT TOBACCO USER [facility] March 16, 2018 08:14 PM SMOKER - OFFERRED MEDS (PROVIDER) [facility] March 16, 2018 08:14 PM TOBACCO OFFERRED S [facility] SMOKING CLINIC [facility] Advance Directives: All historical and current Section Date Range: From patient's date of to the date document was created. This section includes ALL of a patient's completed or amended [place] Advance and Rescinded Directives. The entries below indicate that a directive exists for the patient, but an actual copy is not included with this document. The data comes from all [place] facilities. Date Advance Directives Provider Source Nov 28, 2017 ADVANCE DIRECTIVE DISCUSSION JOSE ALEJANDRO BULLARD [facility] March 16, 2015 ADVANCE DIRECTIVE CASEY FELIX [facility] Jun 30, 2014 ADVANCE DIRECTIVE DISCUSSION IVONE TOLEDO [facility] Jan 21, 2003 ADVANCE DIRECTIVE DISCUSSION TJ MERCADO Jan 07, 2003 ADVANCE DIRECTIVE DISCUSSION SANCHEZ BROWN Encounter Notes: All associated encounter notes This section contains the clinical notes associated to the Encounter. Date/Time Encounter Note(s) Provider Source Jan 30, 2025 11:39 AM LETTERS: LOCAL TITLE: TEST RESULTS PATIENT LETTER (MAILED TO PATIENT) STANDARD TITLE: LETTERS DATE OF NOTE: JAN 30, 2025@11:39 ENTRY DATE: JAN 30, 2025@11:39:31 AUTHOR: ALEJANDRO CARTY EXP COSIGNER: URGENCY: STATUS: COMPLETED [facility] [address] [facility] [address] JAN 30, 2025 AARON TRUJILLO [address] [place] [address] Dear Aaron Cassandra : I would like to update you on your recent lab results: GCMS SCREEN,U/M URINE,RANDOM SP ~For Test: GCMS SCREEN,U/M ~amphetamine metatolites #[id number] Collection time: Jan 28, 2025@09:08 Test Name Result Units Range --------- ------ ----- ----- AMPHETAMINES DETECTED H Ref: Not Detected BARBITURATES Not Detected Ref: Not Detected BENZODIAZEPINES Not Detected Ref: Not Detected CANNABINOIDS,URINE Not Detected Ref: Not Detected COCAINE,URINE Not Detected Ref: Not Detected OPIATES,URINE Not Detected Ref: Not Detected URINE METHADONE Not Detected Ref: Not Detected URINE OXYCODONE Not Detected Ref: Not Detected CREATININE,VERIFY 358 mg/dL URINE BUPRENORHINE DETECTED H Ref: Not Detected URINE FENTANYL Not Detected Ref: Not Detected Comments: Ordering Provider: Alejandro Carty MD Report Released Date/Time: Jan 28, 2025@10:44 Reporting Lab: [facility] [CLIA# [id number]] [address] [place], [place] [id number] Performing Lab: [facility] [CLIA# [id number]] [address] [place], [place] [id number] Collection time: Jan 28, 2025@09:08 Test Name Result Units Range --------- ------ ----- ----- GCMS SCREEN,U/M comment Comments: ~For Test: GCMS SCREEN,U/M ~amphetamine metatolites Urine drug screen is POSITIVE. The following drugs were detected: Methamphetamine Amphetamine Gabapentin Nicotine Cotinine Caffeine Ordering Provider: Alejandro Carty MD Report Released Date/Time: Jan 29, 2025@15:19 Reporting Lab: [facility] [CLIA# [id number]] [address] [place] [address] Performing Lab: M LAB[facility] [CLIA# [id number]] [facility] Dept of Pathology [address] [place] [address] [place] [address] Sincerely, ALEJANDRO CARTY MD Staff Physician, [facility] CASSANDRA,ALEJANDRO LESTER [facility] Jan 28, 2025 09:54 AM ACCOUNTING OF DISC LOSURES NOTE: LOCAL TITLE: STATE PRESCRIPTION DRUG MONITORING PROGRAM STANDARD TITLE: ACCOUNTING OF DISCLOSURES NOTE DATE OF NOTE: JAN 28, 2025@09:54:50 ENTRY DATE: JAN 28, 2025@09:54:50 AUTHOR: ALEJANDRO CARTY EXP COSIGNER: URGENCY: STATUS: COMPLETED This PDMP query was submitted by Alejandro Carty MD. The clinical justification for this PDMP query is to review controlled substances prescribed outside of the [facility], and any additional information that may become available, as an important component of standard clinical care, and in accordance with [facility] policy. Patient information was shared with the PDMP [place]. No prescription(s) for controlled substances outside the [facility] were found in the last 90 days. /es/ ALEJANDRO CARTY MD Staff Physician, [facility] Signed: 01/28/2025 09:55 ALEJANDRO CARTY [facility] Jan 03, 2025 10:11 AM LETTERS: LOCAL TITLE: TEST RESULTS PATIENT LETTER (MAILED TO PATIENT) STANDARD TITLE: LETTERS DATE OF NOTE: JAN 03, 2025@10:11 ENTRY DATE: JAN 03, 2025@10:11:40 AUTHOR: ALEJANDRO CARTY EXP COSIGNER: URGENCY: STATUS: COMPLETED [address] [id number] JAN 03, 2025 CASSANDRAAARONTEAGAN MONZON [facility] [place] [address] Dear Mr. Aaron Trujillo : I would like to update you on your recent lab results: GCMS SCREEN,U/M URINE,RANDOM SP ~For Test: GCMS SCREEN,U/M ~amphetamine metabolites LB #[id number] Collection time: Dec 31, 2024@13:52 Test Name Result Units Range --------- ------ ----- ----- AMPHETAMINES Not Detected Ref: Not Detected BARBITURATES Not Detected Ref: Not Detected BENZODIAZEPINES Not Detected Ref: Not Detected CANNABINOIDS,URINE Not Detected Ref: Not Detected COCAINE,URINE Not Detected Ref: Not Detected OPIATES,URINE Not Detected Ref: Not Detected URINE METHADONE Not Detected Ref: Not Detected URINE OXYCODONE Not Detected Ref: Not Detected CREATININE,VERIFY 28 mg/dL URINE BUPRENORHINE DETECTED H Ref: Not Detected URINE FENTANYL Not Detected Ref: Not Detected Comments: Ordering Provider: Alejandro Carty MD Report Released Date/Time: Dec 31, 2024@15:06 Reporting Lab: [facility] [CLIA# [id number]] [address] [place] [address] Performing Lab: [facility] [CLIA# [id number]] [address] [place] [address] Collection time: Dec 31, 2024@13:52 Test Name Result Units Range --------- ------ ----- ----- GCMS SCREEN,U/M comment Comments: ~For Test: GCMS SCREEN,U/M ~amphetamine metabolites Urine drug screen is POSITIVE. The following drugs were detected: Methamphetamine Amphetamine Gabapentin Naproxen Nicotine Cotinine Caffeine Ordering Provider: Alejandro Carty MD Report Released Date/Time: Jan 01, 2025@15:52 Reporting Lab: [facility] [CLIA# [id number]] [address] [place] [address] Performing Lab: LABS [CLIA# [id number]] [facility] Dept of Pathology [address] [place] [address] [place] [address] Sincerely, ALEJANDRO CARTY MD Staff Physician, [facility] CASSANDRAAARONALEJANDRO VILLANUEVA [facility] Dec 31, 2024 02:54 PM PSYCHIATRY MEDICAT ION MGT NOTE: LOCAL TITLE: PSYCHIATRY MEDICATION STANDARD TITLE: PSYCHIATRY MEDICATION MGT NOTE DATE OF NOTE: DEC 31, 2024@14:54 ENTRY DATE: DEC 31, 2024@14:54:42 AUTHOR: ALEJANDRO CARTY EXP COSIGNER: URGENCY: STATUS: COMPLETED [facility] PHYSICIAN SUBOXONE MEDICATION REVIEW PATIENT IDENTIFYING DATA Name: AARON TRUJILLO Social Security Number: [id number] Age: 64 Gender: MALE Date: DEC 31, 2024 *Two patient identifiers were confirmed. This appointment was conducted as telephone visit because of: Preference was agreeable to telehealth in lieu of face to face per COVID-19 precautions. Start/end time: 8391-5024 DSM 5 DIAGNOSTIC IMPRESSION: Severe opioid use disorder, in sustained remission on maintenance therapy INTERVENTIONS: - Medication managment - Psychoeducation INTERIM HISTORY: Chester seen for [id number] visit. Was scheduled for this morning, no-show, no answer when called. Arrived this afternoon, and was accommodated for appointment. reports that he elected to drive himself today from his current residence in [facility]. 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 He reports he got lost on the way, and is uncertain if he will be able to return due to limited funds for gas. reports he continues to live with an acquaintance in [place]. He is very frustrated by this as he is paying for many of the bills per his report. He feels this is keeping him stuck in this living environment which provides many opportunities for access to substances. Chester reports he has not had any methamphetamine use for the past month. He reports his last cocaine use was in October of last year. He did take part of a Percocet tablet offered by a friend 2 days ago. He reports he ran out of his prescribed Suboxone but has been getting Suboxone from acquaintances, but reports that they have cut me off . Devin admits to feeling frustrated and depressed, though denies suicidal ideation. He does have some insight into the geographic issues which are limiting his access to treatment. He notes that the [facility] is less than 10 minutes from his current residence. I offered to place a consult to the [facility], that might allow him to obtain care at [place]. He wants to think about this. Devin remains interested in engaging in treatment at the [facility]. He feels this would allow him to achieve some stability in his recovery and allow him to focus on improving his housing situation. Devin and I discussed his ongoing treatment here. He has struggled with some intermittent substance use, primarily stimulants. He continues to have trouble staying engaged on a regular basis for appointments. He did complete a urine drug screen today. I have offered to provide a refill of Suboxone for 1 month. I have made clear that I think he at minimum needs monthly visits in person in order to try and make progress. He is somewhat frustrated by this, but is willing to try. He did request another referral to the [facility] residential program, and I stressed the importance of answering phone calls from them, specifically answering calls with the [id number] prefix code. He was amenable to [id number] visit for our next visit on January 28. Acute Intoxication No Acute Withdrawal No Last UDS: See below UDS Collected today?: Yes Cravings:Yes Medication SE:Denies Substance Use: See above Desire to Titrate?: No If yes, then when: MENTAL STATUS EXAM: Speech: normal rate and rhythm Mood: dysphoric, irritable Affect: Depressed Thought process: No alterations SI: Denies Insight: poor Judgment: fair Comments: MEDICATIONS: Active Outpatient Medications (including Supplies): Active Outpatient Medications Status 1) ALBUTEROL 90MCG (CFC-F) 200D ORAL INHL INHALE 2 PUFFS BY ACTIVE INHALATION EVERY 4 HOURS NEEDED Indication: FOR SHORTNESS OF BREATH 2) NALOXONE HCL 4MG/SPRAY SOLN NASAL SPRAY INSTILL 1 SPRAY IN ACTIVE NOSE ONCE DO NOT PRIME OR TEST THE SPRAY DEVICE. GENTLY INSERT TIP INTO ONE NOSTRIL AND PRESS THE PLUNGER FIRMLY TO GIVE THE ENTIRE DOSE. USE EACH DEVICE ONLY ONCE. Indication: FOR SUSPECTED OPIOID OVERDOSE Pending Outpatient Medications Status 1) BUPRENORPHINE 8MG/NALOXONE 2MG SL TAB DISSOLVE 1 TABLET PENDING UNDER THE TONGUE THREE TIMES A DAY Indication: FOR OPIOID DEPENDENCE 3 Total Medications LABS: Collection DT Specimen [...] on agonist therapy (Suboxone) TREATMENT PLAN REVIEW/UPDATE: Chester is engaged in opiate agonist therapy based on evidence based treatment guidelines and treatment plan. --PDMP Query: Done, no concerning Rx information --Naloxone Kit: UTD --Consulting Psychiatrist for Psychiatric Medication Management: No current psychiatric issues requiring psychiatric pharmacotherapy. --Suboxone Refill: Refill for pick up man --Other medical/medication Issues: As above --RTC (F2F) 01-28-25@1000 /es/ ALEJANDRO CARTY MD Staff Physician, [facility] Abuse [facility] Signed: 12/31/2024 15:08 ALEJANDRO CARTY [facility]
--- OUTSIDE RECORDS SUMMARY | 2025-01-28 06:00 | XMS_ITS | Encounter Summary ---
Author Name [facility] ([place] Organization [facility] ([place]) Address [address] [place] [id number] Care Team Providers Care Beader Name Role Phone SEAN TRACY Primary Care [...] Lemon's Name Patient's Relationship to Policy Lemon [facility] ([facility]) MEDICARE ADVANTAGE [facility] ([facility]) March 13, 2017 [id number] HEDY OLIVAREZ PATIENT MEDICARE (WNR) MEDICARE (M) PART B March 13, 2014 PART B [id number] HEDY OLIVAREZ PATIENT MEDICARE (WNR) MEDICARE (M) PART B March 13, 2014 PART B [id number] HEDY OLIVAREZ PATIENT MEDICARE (WNR) MEDICARE (M) PART B March 13, 2014 PART B [id number] HEDY OLIVAREZ PATIENT MEDICARE (WNR) MEDICARE (M) PART B March 13, 2014 PART B [id number] HEDY OLIVAREZ PATIENT MEDICARE (WNR) MEDICARE (M) PART B March 13, 2014 PART B [id number] HEDY OLIVAREZ PATIENT MEDICARE (WNR) MEDICARE (M) PART B March 13, 2014 PART B [id number] HEDY OLIVAREZ PATIENT MEDICARE (WNR) MEDICARE (M) PART B March 13, 2014 PART B [id number] HEDY OLIVAREZ PATIENT MEDICARE (WNR) MEDICARE (M) PART B March 13, 2014 PART B [id number] HEDY OLIVAREZ PATIENT MEDICARE (WNR) MEDICARE (M) PART B March 13, 2014 PART B [id number] HEDY OLIVAREZ PATIENT MEDICARE (WNR) MEDICARE (M) PART B Jan 11, 2003 PART B [id number] HEDY OLIVAREZ PATIENT MEDICARE (WNR) MEDICARE (M) PART B Jan 11, 2003 PART B [id number] HEDY OLIVAREZ PATIENT MEDICARE (WNR) MEDICARE (M) PART B Jan 11, 2003 PART B [id number] HEDY OLIVAREZ PATIENT MEDICARE (WNR) MEDICARE (M) PART B Jan 11, 2003 PART B [id number] HEDY OLIVAREZ PATIENT MEDICARE (WNR) MEDICARE (M) PART A Nov 13, 2000 PART A [id number] HEDY OLIVAREZ PATIENT MEDICARE (WNR) MEDICARE (M) PART A Nov 13, 2000 PART A [id number] HEDY OLIVAREZ PATIENT MEDICARE (WNR) MEDICARE (M) PART A Nov 13, 2000 PART A [id number] HEDY OLIVAREZ PATIENT MEDICARE (WNR) MEDICARE (M) PART A Nov 13, 2000 PART A [id number] HEDY OLIVAREZ PATIENT MEDICARE (WNR) MEDICARE (M) PART A Jul 14, 1995 PART A [id number] HEDY OLIVAREZ PATIENT MEDICARE (WNR) MEDICARE (M) PART A Jul 14, 1995 PART A [id number] HEDY OLIVAREZ PATIENT MEDICARE (WNR) MEDICARE (M) PART A Jul 14, 1995 PART A [id number] HEDY OLIVAREZ PATIENT MEDICARE (WNR) MEDICARE (M) PART B Jul 14, 1995 PART B [id number] HEDY OLIVAREZ PATIENT MEDICARE (WNR) MEDICARE (M) PART B Jul 14, 1995 PART B [id number] HEDY OLIVAREZ PATIENT MEDICARE (WNR) MEDICARE (M) PART A Jul 14, 1995 PART A [id number] HEDY OLIVAREZ PATIENT MEDICARE (WNR) MEDICARE (M) PART A Jul 14, 1995 PART A [id number] HEDY OLIVAREZ PATIENT MEDICARE (WNR) MEDICARE (M) PART A Jul 14, 1995 PART A [id number] HEDY OLIVARZE PATIENT MEDICARE (WNR) MEDICARE (M) PART A Jul 14, 1995 PART A [id number] HEDY OLIVAREZ PATIENT MEDICARE (WNR) MEDICARE (M) PART A Jul 14, 1995 PART A [id number] HEDY OLIVAREZ PATIENT MEDICARE (WNR) MEDICARE (M) PART A Jul 14, 1995 PART A [id number] HEDY OLIVAREZ PATIENT MEDICARE (WNR) MEDICARE (M) PART A Jul 14, 1995 PART A [id number] HEDY OLIVAREZ PATIENT MEDICARE (WNR) MEDICARE (M) PART A Jul 14, 1995 PART A [id number] HEDY OLIVAREZ PATIENT MEDICARE PART D (WNR) MEDICARE (M) PART D Oct 13, 2022 PART D [id number] HEDY OLIVAREZ PATIENT [facility] MCR (WNR) MEDICARE ADVANTAGE MCR (WNR) Oct 13, 2022 [id number] HEDY OLIVAREZ PATIENT Selected Encounter This section includes the information on record at [place] for the Encounter. Date/Time Encounter Type Encounter Description Reason Provider Source Jan 28, 2025 10:00 AM OFFICE O/P EST MOD 30 MIN SUBSTANCE USE DISORDER IND ICD-10-CM F11.21 Opioid dependence, in remission ALEJANDRO CARSON IHE Encounter Template Text not used by [place] Assessments - Encounter Diagnoses This section includes the primary and secondary diagnoses documented for the Encounter. Date/Time Primary/Secondary Diagnosis Diagnosis Name Provider Source Jan 28, 2025 10:50 AM PRIMARY Opioid dependence, in remission ALEJANDRO CARSON [facility] Plan of Treatment: Future Appointments (+ 6 months) and Future Tests (+/- 45 days) The Plan of Treatment section includes future care activities for the patient from all [place] treatmentfacilities. This section includes future appointments and future orders which are active, pending or scheduled. Future Appointments This section includes appointments that were scheduled to occur 6 months from the date of the Encounter, up to a maximum of 20 appointments. The data comes from all [place] treatment facilities. Appointment Date/Time Appointment Type Appointme nt Facility Name Feb 07, 2025 08:30 AM AMBULATORY - MEDICINE [facility] Feb 13, 2025 08:00 AM AMBULATORY - PSYCHIATRY [facility] Feb 25, 2025 11:00 AM AMBULATORY - PSYCHIATRY [facility] Feb 27, 2025 11:00 AM AMBULATORY - SURGERY [facility] March 25, 2025 10:30 AM AMBULATORY - PSYCHIATRY [facility] Lab Results: +/- 30 days of the encounter This section includes the Chemistry and Hematology Lab Results on record with [place] for the patient. Radiology Reports and Pathology Reports are provided separately, in subsequent sections. Lab Results This section contains the Chemistry/Hematology Results that were resulted 30 days before or 30 daysafter the date of the Encounter. Date/Time Source Result Type Result - Unit Interpretation Reference Range Specimen Type Comment Feb 25, 2025 11:[address] [facility] GCMS SCREEN,U/M URINE,RA NDOM Specimen Type: URINE,RANDOM Comment: ~For Test: GCMS SCREEN,U/M ~amphetamine metabolites Urine drug screen is POSITIVE. The following drugs were detected: Gabapentin Methamphetamine Amphetamine Fentanyl Nicotine Cotinine Ordering Provider: ALEJANDRO CARSON Report Released Date/Time: Feb 25, 2025 10:34 AM Reporting Lab: [address] [address] Performing Lab: [facility] Dept of Pathology [facility] [address] GCMS SCREEN,U/M comment Feb 25, 2025 11:[address] [facility] TOX SCREEN ([facility]) URINE,RANDOM Specimen Type : URINE,RANDOM Comment: ~For Test: GCMS SCREEN,U/M ~amphetamine metabolites Ordering Provider: ALEJANDRO CARSON Report Released Date/Time: Feb 25, 2025 10:34 AM Reporting Lab: [address] [address] Performing Lab: [address] [address] BENZODIAZEPINES Not Detected Not Detecte d CANNABINOIDS,URINE Not Detected Not Dete cted OPIATES,URINE Not Detected Not Detected AMPHETAMINES DETECTED H Not Detected BARBITURATES Not Detected Not Detected COCAINE,URINE Not Detected Not Detected CREATININE,VERIFY 209 mg/dL URINE METHADONE Not Detected Not Detecte d URINE OXYCODONE Not Detected Not Detecte d URINE BUPRENORHINE DETECTED H Not Detected URINE FENTANYL DETECTED H Not Detected Jan 28, 2025 09:[address] [facility] GCMS SCREEN,U/M URINE,RANDOM Specimen Type: URINE,RANDOM Comment: ~For Test: GCMS SCREEN,U/M ~amphetamine metatolites Urine drug screen is POSITIVE. The following drugs were detected: Methamphetamine Amphetamine Gabapentin Nicotine Cotinine Caffeine Ordering Provider: ALEJANDRO CARSON Report Released Date/Time: Jan 28, 2025 08:56 AM Reporting Lab: [address] [address] Performing Lab: [facility] Dept of Pathology [facility] [address] GCMS SCREEN,U/M comment Jan 28, 2025 09:[address] [facility] TOX SCREEN ([facility]) URINE,RANDOM Specimen Type : URINE,RANDOM Comment: ~For Test: GCMS SCREEN,U/M ~amphetamine metatolites Ordering Provider: ALEJANDRO CARSON Report Released Date/Time: Dec 31, 2024 02:54 PM Reporting Lab: [address] [address] Performing Lab: [address] [address] BENZODIAZEPINES Not Detected Not Detecte d CANNABINOIDS,URINE [...] Not Detected Dec 31, 2024 01:[address] [facility] GCMS SCREEN,U/M URINE,RANDOM Specimen Type: URINE,RANDOM Comment: ~For Test: GCMS SCREEN,U/M ~amphetamine metabolites Urine drug screen is POSITIVE. The following drugs were detected: Methamphetamine Amphetamine Gabapentin Naproxen Nicotine Cotinine Caffeine Ordering Provider: ALEJANDRO CARSON Report Released Date/Time: Nov 26, 2024 09:15 AM Reporting Lab: [address] [address] Performing Lab: [facility] Dept of Pathology [facility] [address] GCMS SCREEN,U/M comment Dec 31, 2024 01:[address] [facility] TOX SCREEN ([facility]) URINE,RANDOM Specimen Type : URINE,RANDOM Comment: ~For Test: GCMS SCREEN,U/M ~amphetamine metabolites Ordering Provider: ALEJANDRO CARSON Report Released Date/Time: Nov 26, 2024 09:15 AM Reporting Lab: [address] [address] Performing Lab: [address] [address] BENZODIAZEPINES Not Detected Not Detecte d CANNABINOIDS,URINE Not Detected Not Dete cted OPIATES,URINE Not Detected Not Detected AMPHETAMINES Not Detected Not Detected BARBITURATES Not Detected Not Detected COCAINE,URINE Not Detected Not Detected CREATININE,VERIFY 28 mg/dL URINE METHADONE Not Detected Not Detecte d URINE OXYCODONE Not Detected Not Detecte d URINE BUPRENORHINE DETECTED H Not Detected URINE FENTANYL Not Detected Not Detected Vital Signs: All taken on the encounter date This section contains inpatient and outpatient Vital Signs collected on the date of the Encounter. Date/Time Temperature Pulse Blood Pressure Respiratory Rate SP02 Pain Height Weight Body Mass Index Source Jan 28, 2025 11:59 AM 97.88 78 184/[address] [facility] Social History: Smoking Status (Most current) and Tobacco Use (All prior to encounter date) This section includes the most current, and the historical, smoking and tobacco- related health factors from the [place] facility where the Encounter took place. Current Smoking Status This section includes the most current smoking, or tobacco-related health factor, from the [place] facility where the Encounter took place. Date/Time Current Smoking Status Comment Facil ity Feb 07, 2023 11:00 AM VA-TOBACCO USER EVERY DAY [facility] Tobacco Use History This section includes a history of the smoking, or tobacco-related health factors, that were collected on or before the date of the Encounter. The data comes from the [place] facility where the Encounter took place. Date/Time Smoking Status/Tobacco Use Comment F acility Feb 07, 2023 11:00 AM VA-TOBACCO USE ADVICE [facility] Feb 07, 2023 11:00 AM VA-TOBACCO USE COMMUNICATIONS TECHNOLOGIST YES [facility] Feb 07, 2023 11:00 AM VA-TOBACCO USE MED NOTIFY PROVIDER [facility] Feb 07, 2023 11:00 AM VA-TOBACCO USE [place] [address] [facility] Feb 07, 2023 11:00 AM VA-TOBACCO USER EVERY DAY [facility] Feb 16, 2022 01:00 PM VA-TOBACCO USE [address] [facility] Feb 16, 2022 01:00 PM VA-TOBACCO USE ADVICE [facility] Feb 16, 2022 01:00 PM VA-TOBACCO USE COMMUNICATIONS TECHNOLOGIST NO [facility] Feb 16, 2022 01:00 PM VA-TOBACCO USE MED NO [facility] Feb 16, 2022 01:00 PM VA-TOBACCO USE [place] [address] [facility] Feb 16, 2022 01:00 PM VA-TOBACCO USER EVERY DAY [facility] Jun 21, 2020 04:12 AM CURRENT TOBACCO USER [facility] Jun 21, 2020 04:12 AM TOBACCO [facility] SMOKING CLINIC [facility] Jun 09, 2020 01:24 PM CURRENT TOBACCO USER [facility] Jun 09, 2020 01:24 PM TOBACCO OFFERRED S TOP SMOKING CLINIC [facility] Jul 24, 2019 01:11 PM VA-TOBACCO USE [address] [facility] Jul 24, 2019 01:11 PM VA-TOBACCO USE ADVICE [facility] Jul 24, 2019 01:11 PM VA-TOBACCO USE COMMUNICATIONS TECHNOLOGIST NO [facility] Jul 24, 2019 01:11 PM VA-TOBACCO USE MED NO [facility] Jul 24, 2019 01:11 PM VA-TOBACCO USE [place] [address] [facility] Jul 24, 2019 01:11 PM VA-TOBACCO USER EVERY DAY [facility] March 23, 2018 09:34 AM SMOKING CESSATION NO [facility] March 16, 2018 08:14 PM CURRENT TOBACCO USER [facility] March 16, 2018 08:14 PM SMOKER - OFFERRED MEDS (PROVIDER) [facility] March 16, 2018 08:14 PM TOBACCO OFFERRED S TOP SMOKING CLINIC [facility] Advance Directives: All historical and current Section Date Range: From patient's date of to the date document was created. This section includes ALL of a patient's completed or amended [place] Advance and Rescinded Directives. The entries below indicate that a directive exists for the patient, but an actual copy is not included with this document. The data comes from all [place] facilities. Date Advance Directives Provider Source Nov 28, 2017 ADVANCE DIRECTIVE DISCUSSION JOSE ALEJANDRO BULLARD [facility] March 16, 2015 ADVANCE DIRECTIVE CASEY FELIX [facility] Jun 30, 2014 ADVANCE DIRECTIVE DISCUSSION IVONE TOLEDO [facility] Jan 21, 2003 ADVANCE DIRECTIVE DISCUSSION TJ MERCADO Jan 07, 2003 ADVANCE DIRECTIVE DISCUSSION SANCHEZ BROWN Encounter Notes: All associated encounter notes This section contains the clinical notes associated to the Encounter. Date/Time Encounter Note(s) Provider Source Feb 25, 2025 10:29 AM ACCOUNTING OF DISC LOSURES NOTE: LOCAL TITLE: STATE PRESCRIPTION DRUG MONITORING PROGRAM STANDARD TITLE: ACCOUNTING OF DISCLOSURES NOTE DATE OF NOTE: FEB 25, 2025@10:29:54 ENTRY DATE: FEB 25, 2025@10:29:54 AUTHOR: ALEJANDRO CARSON EXP COSIGNER: URGENCY: STATUS: COMPLETED This PDMP query was submitted by Alejandro Carson MD. The clinical justification for this PDMP query is to review controlled substances prescribed outside of the [place], and any additional information that may become available, as an important component of standard clinical care, and in accordance with [facility] policy. Patient information was shared with the PDMP [employer] [place]. No prescription(s) for controlled substances outside the [place] were found in the last 90 days. /aren/ ALEJANDRO CARSON MD Staff Physician, [facility] Signed: 02/25/2025 10:[address] [facility] Jan 28, 2025 10:40 AM PSYCHIATRY MEDICAT ION MGT NOTE: LOCAL TITLE: PSYCHIATRY MEDICATION STANDARD TITLE: PSYCHIATRY MEDICATION MGT NOTE DATE OF NOTE: JAN 28, 2025@10:40 ENTRY DATE: JAN 28, 2025@10:40:31 AUTHOR: ALEJANDRO CARSON EXP COSIGNER: URGENCY: STATUS: COMPLETED [facility] PHYSICIAN SUBOXONE MEDICATION REVIEW PATIENT IDENTIFYING DATA Name: AARON OLIVAREZ Social Security Number: [id number] Age: 64 Gender: MALE Date: JAN 28, 2025 Start/end time: [id number] DSM 5 DIAGNOSTIC IMPRESSION: Severe opioid use disorder, in sustained remission on maintenance therapy Severe stimulant use disorder (methamphetamine) INTERVENTIONS: - Medication managment - Psychoeducation INTERIM HISTORY: Bennett seen for [id number] visit. Initially irritable and a bit unfocused. Admits to ongoing substance use, methamphetamine use yesterday, admits to 2-3 episodes of use in the past 2 weeks. Also endorses use of opiates, took oral oxycodone 1 to 2 days ago. Occasional marijuana use, denies alcohol use, denies other illicit drug use. reports another episode of seizure . He reports he has had 3 episodes since the first of the year. Has been taken to a local hospital for each episode, was started on some type of seizure prophylaxis, but reports he has not continued taking it. He associates these episodes with PTSD, though they seem to correlate closely with his substance use. He does report he has discontinued any alcohol use since the episode in November. I reminded that he was accepted for admission to the [place] residential program. He had forgotten this, but then was able to recognize that he scheduled a primary care appointment in order to refill his medications in preparation for an February [place] start date. I have encouraged him to contact [facility] to confirm his start date, and also encouraged him to attend his primary care appointment scheduled for next Monday. After some discussion, audrey was able to associate his ongoing health issues with his substance use. He does report an interest in achieving abstinence, and has some insight that his health issues and PTSD would be best managed by focusing on ongoing substance use disorder concerns. He does report he takes his Suboxone as directed, and for the most part does not engage in ongoing opiate use, except when he gets frustrated or angry. His ongoing methamphetamine use is related to a sense of profound fatigue, and an ongoing need to have some energy . He reports his sleep has been significantly disrupted, though denies any change in appetite or weight loss. He feels intermittently depressed and irritable, but denied suicidal ideation. Audrey was amenable to maintaining stable dose Suboxone. I think he is best served with engagement to residential treatment as soon as that is available, and he is aware that he must attend his scheduled primary care appointment next Monday in order to facilitate refills of his medications to make admission to [place] possible. I have provisionally offered follow-up with me in 1 month on February 25, though ideally he will be engaged at the [place] residential program at that time. Acute Intoxication No Acute Withdrawal No Last UDS: See below UDS Collected today?: Yes Cravings:Yes Medication SE:Denies Substance Use: See above Desire to Titrate?: No If yes, then when: MENTAL STATUS EXAM: Speech: normal rate and rhythm Mood: dysphoric Affect: Irritable Thought process: Tangential SI: Denies Insight: poor Judgment: poor Comments: MEDICATIONS: Active Outpatient Medications [...] ACTIVE DAY Indication: FOR NERVE PAIN 4) NALOXONE HCL 4MG/SPRAY SOLN NASAL SPRAY [...] Specimen Test Name Result Units Ref Range 01/28/2025 09:08 URINE AMPHETAMINES DETECTED H Ref: Not Detected 12/31/2024 13:52 URINE AMPHETAMINES Not Detected Ref: Not Detected 10/29/2024 08:29 URINE AMPHETAMINES DETECTED H Ref: Not Detected 01/28/2025 09:08 URINE BENZODIAZEPINES Not Detected Ref: Not Detected 12/31/2024 13:52 URINE BENZODIAZEPINES Not Detected Ref: Not Detected 10/29/2024 08:29 URINE BENZODIAZEPINES Not Detected Ref: Not Detected 01/28/2025 09:08 URINE CANNABINOIDS,URINNot Detected Ref: Not Detected 12/31/2024 13:52 URINE CANNABINOIDS,URINNot Detected Ref: Not Detected 10/29/2024 08:29 URINE CANNABINOIDS,URINDETECTED H Ref: Not Detected 01/28/2025 09:08 URINE URINE METHADONE Not Detected Ref: Not Detected 12/31/2024 13:52 URINE URINE METHADONE Not Detected Ref: Not Detected 10/29/2024 08:29 URINE URINE METHADONE Not Detected Ref: Not Detected 01/28/2025 09:08 URINE OPIATES,URINE Not Detected Ref: Not Detected 12/31/2024 13:52 URINE OPIATES,URINE Not Detected Ref: Not Detected 10/29/2024 08:29 URINE OPIATES,URINE Not Detected Ref: Not Detected 01/28/2025 09:08 URINE BARBITURATES Not Detected Ref: Not Detected 12/31/2024 13:52 URINE BARBITURATES Not Detected Ref: Not Detected 10/29/2024 08:29 URINE BARBITURATES Not Detected Ref: Not Detected 01/28/2025 09:08 URINE COCAINE,URINE Not Detected Ref: Not Detected 12/31/2024 13:52 URINE COCAINE,URINE Not Detected Ref: Not Detected 10/29/2024 08:29 URINE COCAINE,URINE DETECTED H Ref: Not Detected 01/28/2025 09:08 URINE CREATININE,VERIFY pending 12/31/2024 13:52 URINE CREATININE,VERIFY 28 mg/dL 10/29/2024 08:29 URINE CREATININE,VERIFY 166 mg/dL Assessment/Summary: 64 yo male with severe OUD on agonist therapy (Suboxone) TREATMENT PLAN REVIEW/UPDATE: is engaged in opiate agonist therapy based on evidence based treatment guidelines and treatment plan. --PDMP Query: Done, no concerning Rx information --Naloxone Kit: UTD --Consulting Psychiatrist for Psychiatric Medication Management: No current psychiatric issues requiring psychiatric pharmacotherapy. 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
--- OUTSIDE RECORDS SUMMARY | 2025-01-28 07:50 | XMS_ITS | Encounter Summary ---
Author Name [facility] Organization [facility] ([place]) Address [address] [place] [id number] Care Team Providers Care Ramp Service Man Name Role Phone SEAN TRACY Primary Care [...] Name Patient's Relationship to Policy Lemon [facility] ([facility]) MEDICARE ADVANTAGE [facility] ([facility]) March 13, 2017 [id number] HEDY OLIVAREZ PATIENT MEDICARE (WN) MEDICARE (M) PART B March 13, 2014 PART B [id number] HEDY OLIVAREZ PATIENT MEDICARE (WNR) MEDICARE (M) PART B March 13, 2014 PART B [id number] HEDY OLIVAREZ PATIENT MEDICARE (WNR) MEDICARE (M) PART B March 13, 2014 PART B [id number] HEDY OLIVAREZ PATIENT MEDICARE (WNR) MEDICARE (M) PART B March 13, 2014 PART B [id number] HEDY OLIVAREZ PATIENT MEDICARE (WNR) MEDICARE (M) PART B March 13, 2014 PART B [id number] HEDY OLIVAREZ PATIENT MEDICARE (WNR) MEDICARE (M) PART B March 13, 2014 PART B [id number] HEDY OLIVAREZ PATIENT MEDICARE (WNR) MEDICARE (M) PART B March 13, 2014 PART B [id number] HEDY OLIVAREZ PATIENT MEDICARE (WNR) MEDICARE (M) PART B March 13, 2014 PART B [id number] HEDY OLIVAREZ PATIENT MEDICARE (WNR) MEDICARE (M) PART B March 13, 2014 PART B [id number] HEDY OLIVAREZ PATIENT MEDICARE (WNR) MEDICARE (M) PART B Jan 11, 2003 PART B [id number] HEDY OLIVAREZ PATIENT MEDICARE (WNR) MEDICARE (M) PART B Jan 11, 2003 PART B [id number] HEDY OLIVAREZ PATIENT MEDICARE (WNR) MEDICARE (M) PART B Jan 11, 2003 PART B [id number] HEDY OLIVAREZ PATIENT MEDICARE (WNR) MEDICARE (M) PART B Jan 11, 2003 PART B [id number] HEDY OLIVAREZ PATIENT MEDICARE (WNR) MEDICARE (M) PART A Nov 13, 2000 PART A [id number] HEDY OLIVAREZ PATIENT MEDICARE (WNR) MEDICARE (M) PART A Nov 13, 2000 PART A [id number] HEDY OLIVAREZ PATIENT MEDICARE (WNR) MEDICARE (M) PART A Nov 13, 2000 PART A [id number] HEDY OLIVAREZ PATIENT MEDICARE (WNR) MEDICARE (M) PART A Nov 13, 2000 PART A [id number] HEDY OLIVAREZ PATIENT MEDICARE (WNR) MEDICARE (M) PART A Jul 14, 1995 PART A [id number] HEDY OLIVAREZ PATIENT MEDICARE (WNR) MEDICARE (M) PART A Jul 14, 1995 PART A [id number] HEDY OLIVAREZ PATIENT MEDICARE (WNR) MEDICARE (M) PART A Jul 14, 1995 PART A [id number] HEDY OLIVAREZ PATIENT MEDICARE (WNR) MEDICARE (M) PART B Jul 14, 1995 PART B [id number] HEDY OLIVAREZ PATIENT MEDICARE (WNR) MEDICARE (M) PART B Jul 14, 1995 PART B [id number] HEDY OLIVAREZ PATIENT MEDICARE (WNR) MEDICARE (M) PART A Jul 14, 1995 PART A [id number] HEDY OLIVAREZ PATIENT MEDICARE (WNR) MEDICARE (M) PART A Jul 14, 1995 PART A [id number] HEDY OLIVAREZ PATIENT MEDICARE (WNR) MEDICARE (M) PART A Jul 14, 1995 PART A [id number] HEDY OLIVAREZ PATIENT MEDICARE (WNR) MEDICARE (M) PART A Jul 14, 1995 PART A [id number] HEDY OLIVAREZ PATIENT MEDICARE (WNR) MEDICARE (M) PART A Jul 14, 1995 PART A [id number] HEDY OLIVAREZ PATIENT MEDICARE (WNR) MEDICARE (M) PART A Jul 14, 1995 PART A [id number] HEDY OLIVAREZ PATIENT MEDICARE (WNR) MEDICARE (M) PART A Jul 14, 1995 PART A [id number] HEDY OLIVAREZ PATIENT MEDICARE (WNR) MEDICARE (M) PART A Jul 14, 1995 PART A [id number] HEDY OLIVAREZ PATIENT MEDICARE PART D (WNR) MEDICARE (M) PART D Oct 13, 2022 PART D [id number] HEDY OLIVAREZ PATIENT [facility] MCR (WNR) MEDICARE ADVANTAGE MCR (WNR) Oct 13, 2022 SARAH [id number] HEDY OLIVAREZ PATIENT Selected Encounter This section includes the information on record at [place] for the Encounter. Date/Time Encounter Type Encounter Description Reason Provider Source Jan 28, 2025 11:50 AM EMERGENCY DEPT VISIT [facility] EMERGENCY DEPT ICD-10-CM S83.90XA Sprain of unspecified site of unspecified knee, ZACK Adams MD [facility] Encounter Template Text not used by [place] Assessments - Encounter Diagnoses This section includes the primary and secondary diagnoses documented for the Encounter. Date/Time Primary/Secondary Diagnosis Diagnosis Name Provider Source Jan 28, 2025 01:46 PM PRIMARY Sprain of unspecified site of unspecified knee, ZACK Adams MD [facility] Plan of Treatment: Future Appointments (+ 6 months) and Future Tests (+/- 45 days) The Plan of Treatment section includes future care activities for the patient from all [place] treatmentfacilities. This section includes future appointments and future orders which are active, pending or scheduled. Future Appointments This section includes appointments that were scheduled to occur 6 months from the date of the Encounter, up to a maximum of 20 appointments. The data comes from all [place] treatment facilities. Appointment Date/Time Appointment Type Appointme nt Facility Name Feb 07, 2025 08:30 AM AMBULATORY - MEDICINE [facility] Feb 13, 2025 08:00 AM AMBULATORY - PSYCHIATRY [facility] Feb 25, 2025 11:00 AM AMBULATORY - PSYCHIATRY [facility] Feb 27, 2025 11:00 AM AMBULATORY - SURGERY [facility] March 25, 2025 10:30 AM AMBULATORY - PSYCHIATRY [facility] Lab Results: +/- 30 days of the encounter This section includes the Chemistry and Hematology Lab Results on record with [place] for the patient. Radiology Reports and Pathology Reports are provided separately, in subsequent sections. Lab Results This section contains the Chemistry/Hematology Results that were resulted 30 days before or 30 daysafter the date of the Encounter. Date/Time Source Result Type Result - Unit Interpretation Reference Range Specimen Type Comment Feb 25, 2025 11:21 AM [facility] GCMS SCREEN,U/M URINE,RA NDOM Specimen Type: URINE,RANDOM Comment: ~For Test: GCMS SCREEN,U/M ~amphetamine metabolites Urine drug screen is POSITIVE. The following drugs were detected: Gabapentin Methamphetamine Amphetamine Fentanyl Nicotine Cotinine Ordering Provider: MARCIA CARTY Report Released Date/Time: Feb 25, 2025 10:34 AM Reporting Lab: [address] [address] Performing Lab: [facility] Dept of Pathology [facility] [phone] GCMS SCREEN,U/M comment Feb 25, 2025 11:21 AM [facility] TOX SCREEN ([facility]) URINE,RANDOM Specimen Type : URINE,RANDOM Comment: ~For Test: GCMS SCREEN,U/M ~amphetamine metabolites Ordering Provider: MARCIA CARTY Report Released Date/Time: Feb 25, 2025 10:34 AM Reporting Lab: [address] [address] Performing Lab: [address] [address] BENZODIAZEPINES Not Detected Not Detecte d CANNABINOIDS,URINE [...] Not Detected Jan 28, 2025 09:08 AM [facility] GCMS SCREEN,U/M URINE,RANDOM Specimen Type: URINE,RANDOM Comment: ~For Test: GCMS SCREEN,U/M ~amphetamine metatolites Urine drug screen is POSITIVE. The following drugs were detected: Methamphetamine Amphetamine Gabapentin Nicotine Cotinine Caffeine Ordering Provider: MARCIA CARTY Report Released Date/Time: Jan 28, 2025 08:56 AM Reporting Lab: [address] [address] Performing Lab: [facility] Dept of Pathology [facility] [id number] GCMS SCREEN,U/M comment Jan 28, 2025 09:08 AM [facility] TOX SCREEN ([facility]) URINE,RANDOM Specimen Type : URINE,RANDOM Comment: ~For Test: GCMS SCREEN,U/M ~amphetamine metatolites Ordering Provider: MARCIA CARTY Report Released Date/Time: Dec 31, 2024 02:54 PM Reporting Lab: [address] [address] Performing Lab: [address] [address] BENZODIAZEPINES Not Detected Not Detecte d CANNABINOIDS,URINE [...] Not Detected Dec 31, 2024 01:52 PM [facility] GCMS SCREEN,U/M URINE,RANDOM Specimen Type: URINE,RANDOM Comment: ~For Test: GCMS SCREEN,U/M ~amphetamine metabolites Urine drug screen is POSITIVE. The following drugs were detected: Methamphetamine Amphetamine Gabapentin Naproxen Nicotine Cotinine Caffeine Ordering Provider: MARCIA CARTY Report Released Date/Time: Nov 26, 2024 09:15 AM Reporting Lab: [address] [address] Performing Lab: [facility] Dept of Pathology [facility] [phone] GCMS SCREEN,U/M comment Dec 31, 2024 01:52 PM [facility] TOX SCREEN ([facility]) URINE,RANDOM Specimen Type : URINE,RANDOM Comment: ~For Test: GCMS SCREEN,U/M ~amphetamine metabolites Ordering Provider: MARCIA CARTY Report Released Date/Time: Nov 26, 2024 09:15 AM Reporting Lab: [address] [address] Performing Lab: [address] [address] BENZODIAZEPINES Not Detected Not Detecte d CANNABINOIDS,URINE [...] 11:59 AM 97.88 78 184/93 16 8 [facility] Social History: Smoking Status (Most current) and Tobacco Use (All prior to encounter date) This section includes the most current, and the historical, smoking and tobacco- related health factors from the [place] facility where the Encounter took place. Current Smoking Status This section includes the most current smoking, or tobacco-related health factor, from the [place] facility where the Encounter took place. Date/Time Current Smoking Status Comment Facil ity Feb 07, 2023 11:00 AM VA-TOBACCO USE WI 30 MIN OF WAKEUP [facility] Tobacco Use History This section includes a history of the smoking, or tobacco-related health factors, that were collected on or before the date of the Encounter. The data comes from the [place] facility where the Encounter took place. 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 [facility] Feb 07, 2023 11:00 AM VA-TOBACCO USE MED NOTIFY PROVIDER [facility] Feb 07, 2023 11:00 AM VA-TOBACCO USE WI 30 MIN OF WAKEUP [facility] Feb 07, 2023 11:00 AM VA-TOBACCO USER EVERY DAY [facility] Feb 16, 2022 01:00 PM VA-TOBACCO USE 30 YEARS OR MORE [facility] Feb 16, 2022 01:00 PM VA-TOBACCO USE ADVICE [facility] Feb 16, 2022 01:00 PM VA-TOBACCO USE 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 [facility] Feb 16, 2022 01:00 PM VA-TOBACCO USE MED NO [facility] Feb 16, 2022 01:00 PM VA-TOBACCO USE WI 30 MIN OF WAKEUP [facility] Feb 16, 2022 01:00 PM VA-TOBACCO USER EVERY DAY [facility] Jun 21, 2020 04:12 AM CURRENT TOBACCO USER [facility] Jun 21, 2020 04:12 AM TOBACCO OFFERRED S TOP SMOKING CLINIC [facility] Jun 09, 2020 01:24 PM CURRENT TOBACCO USER [facility] Jun 09, 2020 01:24 PM TOBACCO OFFERRED S TOP SMOKING CLINIC [facility] Jul 24, 2019 01:11 PM VA-TOBACCO USE 30 YEARS OR MORE [facility] Jul 24, 2019 01:11 PM VA-TOBACCO USE ADVICE [facility] Jul 24, 2019 01:11 PM 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 USE 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 [facility] Jul 24, 2019 01:11 PM VA-TOBACCO USE MED NO [facility] Jul 24, 2019 01:11 PM VA-TOBACCO USE WI 30 MIN OF WAKEUP [facility] Jul 24, 2019 01:11 PM VA-TOBACCO USER EVERY DAY [facility] March 23, 2018 09:34 AM SMOKING CESSATION NO [facility] March 16, 2018 08:14 PM CURRENT TOBACCO USER [facility] March 16, 2018 08:14 PM SMOKER - OFFERRED MEDS (PROVIDER) [facility] March 16, 2018 08:14 PM TOBACCO OFFERRED S [facility] SMOKING CLINIC [facility] Advance Directives: All historical and current Section Date Range: From patient's date of to the date document was created. This section includes ALL of a patient's completed or amended [place] Advance and Rescinded Directives. The entries below indicate that a directive exists for the patient, but an actual copy is not included with this document. The data comes from all [facility]. Date Advance Directives Provider Source Nov 28, 2017 ADVANCE DIRECTIVE DISCUSSION JOSE ALEJANDRO BULLARD [facility] March 16, 2015 ADVANCE DIRECTIVE CASEY FELIX [facility] Jun 30, 2014 ADVANCE DIRECTIVE DISCUSSION IVONE TOLEDO [facility] Jan 21, 2003 ADVANCE DIRECTIVE DISCUSSION TJ MERCADO Jan 07, 2003 ADVANCE DIRECTIVE DISCUSSION SANCHEZ BROWN Encounter Notes: All associated encounter notes This section contains the clinical notes associated to the Encounter. Date/Time Encounter Note(s) Provider Source Jan 28, 2025 01:39 PM NURSING NOTE: LOCAL TITLE: NURSING NOTE STANDARD TITLE: NURSING NOTE DATE OF NOTE: JAN 28, 2025@13:39 ENTRY DATE: JAN 28, 2025@13:39:16 AUTHOR: SAVITA BIRD EXP COSIGNER: URGENCY: STATUS: COMPLETED Pt was given a cane, as ordered, and m2v prior to being discharged. Pt is fully independent. /aren/ SAVITA BIRD RN Signed: 01/28/2025 13:40 SAVITA BIRD [facility] Jan 28, 2025 01:09 PM EMERGENCY DEPT NOT E: LOCAL TITLE: EMERGENCY DEPT STANDARD TITLE: EMERGENCY DEPT NOTE DATE OF NOTE: JAN 28, 2025@13:09 ENTRY DATE: JAN 28, 2025@13:09:41 AUTHOR: ZACK BOLANOS MD EXP COSIGNER: URGENCY: STATUS: COMPLETED HPI: Patient reports history of bilateral knee issues, previously had scopes done of both knees. Reports he has previously been on oral steroids with help with his knee pain. Patient states that today his right knee gave out, since he had lost his previous cane, this resulted in him falling. He denies LOC but believes he might of hit his head. He denies headache or neck pain. He went to another visit and then presented to the ER requesting a cane or walker as he is due to go to [place] for rehab and states they do a lot of walking there. Patient with no other complaints at this time PMHx: Reviewed ROS:10 of 14 systems reviewed and negative except as noted above in HPI SocHx: Drug use MEDS:Active and Recently Outpatient Medications (including Supplies): Active Outpatient Medications Status === 1) ALBUTEROL 90MCG (CFC-F) 200D ORAL INHL [...] SUSPECTED OPIOID OVERDOSE Pending Outpatient Medications Status === 1) PREDNISONE 20MG TAB TAKE TWO TABLETS BY MOUTH ONCE DAILY PENDING Indication: FOR INFLAMMATION 5 Total Medications PE:VSD - Last Set Vitals Date Vital Measurement Qualifiers 01/28/2025 11:59 Temp F (C) 97.88 (36.6) Pulse 78 Respir 16 BP 184/93 Pain 8 06/05/2023 10:10 Ht in (cm) 73 (185.42) Stated Wt lbs (kg)[BMI] 196.8 (89.27)[26]Actual, Standing Weight POx (L/Min)(%) 95 GEN: Although, well-nourished, no acute distress EXT: Right lower extremity, no knee effusion, no significant ligamentous instability, no obvious joint line tenderness, distal neurovascular intact, no calf pain or pressure, no swelling Skin: No lacerations abrasions contusions Neuro: Awake and alert, GCS 15 RESULTS: MDM: Patient reports that his knee gave out and is requesting a mobility device. After discussion he is more comfortable with a cane than a walker. He is also requesting prednisone prescription as this has helped in the past. He does have an appointment to establish with primary care in 10 days and is advised to keep that appointment. He was offered a CT scan of his head and diclofenac gel but declined both. He also advised to return to the ER for any new or worsening symptoms. /es/ ZACK BOLANOS MD Attending physician, Emergency Medicine Signed: 01/28/2025 13:12 ZACK BOLANOS MD [facility] Jan 28, 2025 01:07 PM EMERGENCY DEPT DIS CHARGE NOTE: LOCAL TITLE: EMERGENCY DEPT DISPOSITION STANDARD TITLE: EMERGENCY DEPT DISCHARGE NOTE DATE OF NOTE: JAN 28, 2025@13:07 ENTRY DATE: JAN 28, 2025@13:07:58 AUTHOR: ZACK BOLANOS MD EXP COSIGNER: URGENCY: STATUS: COMPLETED [facility] [address] [facility] [address] JAN 28, 2025 AARON OLIVAREZ [address] [address] EMERGENCY DEPT. PATIENT DISCHARGE INSTRUCTIONS DIAGNOSIS:Knee pain Medication changes today: Prednisone Consults placed today (you will be called at your listed phone number, please make sure it is accurate and accepts message): ED supply for cane Follow Up Care: No follow up is needed. keep your regular scheduled appointment. Call or return to Emergency Department if you develop: Joint pain: Worsening pain despite the medications and therapy you are prescribed, fevers, chills, increasing swelling of the joint(s). For problems call: [facility] call center or ext. [phone] Discharging Physician:Michelle NELSON 02/07/2025 08:30 JENNIFER URIBE 2, MD R1 02/25/2025 11:00 JENNIFER PARRY 1 Influenza Immunization Deferral / Refusal Deferred due to a precaution (i.e., acute illness, etc.) Medication Reconciliation: The patient received a printed list of their medications (including local and remote VA active medications, non-VA medications, medications that or were discontinued within the last 90 days and pending medication orders). This list was reviewed-reconciled with the patient. Changes in medications were discussed with the patient. A printed list of the new or changed medications was given to the patient. Patient verbalized understanding of the changes made. ZACK BOLANOS MD Attending physician, Emergency Medicine AARON OLIVAREZ GREG A MD [facility] Jan 28, 2025 11:57 AM NURSING EMERGENCY DEPT NOTE: LOCAL TITLE: EMERGENCY DEPARTMENT TRIAGE STANDARD TITLE: NURSING EMERGENCY DEPT NOTE DATE OF NOTE: JAN 28, 2025@11:57 ENTRY DATE: JAN 28, 2025@11:57:49 AUTHOR: JENNIFER FORMAN COSIGNER: URGENCY: STATUS: COMPLETED Emergency Department/Urgent Care Center Triage Patient age:64 Sex in chart: MALE Mode of Arrival: Private vehicle Mode of Mobility: * Walk Chief Complaint: Pt to ED with c/o pain in right knee s/p fall knee gave out and I fell , 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 No LOC. No blood thinners. Wants a walker. 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 Level of Consciousness (AVPU): Alert = Appears aware of and responsive to the environment on their own. Follows commands, opens eyes spontaneously, and tracks objects. Vital Signs: Temperature 97.9 F (36.6 C) Pulse 78 Respirations 16 Blood Pressure 184/93 Pulse Oximetry 92 Room Air Pain: DVPRS Scale Location: right knee Defense and Veterans Pain Rating Scale (DVPRS): Pain Score: 8 Patient's acceptable pain goal: 0 No pain Suicide Screen: [place] Suicide Severity Rating Scale (C-SSRS) screener 1. Over the past month, have you wished you were or wished you could go to sleep and not wake up? No 2. Over the past month, have you had any actual thoughts of killing yourself? No 3. Over the past month, have you been thinking about how you might do this? Response not required due to responses to other questions. 4. Over the past month, have you had these thoughts and had some intention of acting on them? Response not required due to responses to other questions. 5. Over the past month, have you started to work out or worked out the details of how to kill yourself? Response not required due to responses to other questions. 6. If yes, at any time in the past month did you intend to carry out this plan? Response not required due to responses to other questions. 7. In your lifetime, have you ever done anything, started to do anything, or prepared to do anything to end your life (for example, collected pills, obtained a gun, gave away valuables, went to the roof but didn't jump)? No 8. If YES, was this within the past 3 months? Response not required due to responses to other questions. Emergency Severity Index (SABINA) level: Level 4 Previously documented allergies: CODEINE Current Problems: DXLS/Procedures DXLS/Procedures First Reported Most Recent Date Resolved Past Medical History : 1 Dec 2 May 3 March 4 Jun 5 Jan Past Surgical History : March Updated/Additional History : PROBLEM LIST ACTIVE 13 Active Problems PROBLEM LAST MOD PROVIDER Personal History of Alcoholism (ICD-9-CM V11.3) 03/31/2004 SUYAPA VALENTINE Low back pain (SNOMED CT 897724546) 02/07/2023 VERIA,RADHA V Polysubstance dependence (SNOMED CT 43325715) 06/12/2020 0 Lack of Housing (ICD-9-CM V60.0) 04/19/2004 BOLA NEGRON Depression (SNOMED CT 63325917) 01/18/2022 PETE DE LA TORRE Personality Disorder Nos 04/19/2004 BOLA NEGRON Hepatitis C 04/29/2004 SUYAPA VALENTINE Chronic post-traumatic stress disorder 03/21/2018 MELISSA BROWN Hypertensive disorder 07/24/2019 KVNG BAGLEY Hypothyroidism 07/24/2019 KVNG BAGLEY Opioid dependence, on agonist therapy 11/04/2019 MARCIA CARTY Cocaine user 06/10/2020 VITALY MCKEON Homeless single person, Onset 01/11/2019 01/21/2022 SARI CORDERO PROBLEM LIST INACTIVE No data available /aren/ JENNIFER FORMAN RN Signed: 01/28/2025 12:01 JENNIFER FORMAN [facility]
--- OUTSIDE RECORDS SUMMARY | 2025-02-07 04:30 | XMS_ITS | Encounter Summary ---
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 Name Role Phone SEAN TRACY Primary Care [...] Lemon's Name Patient's Relationship to Policy Lemon [facility] ([facility]) MEDICARE ADVANTAGE [facility] ([facility]) March 13, 2017 [id number] HEDY TRUJILLO PATIENT MEDICARE (WNR) MEDICARE (M) PART B March 13, 2014 PART B [id number] HEDY TRUJILLO PATIENT MEDICARE (WNR) MEDICARE (M) PART B March 13, 2014 PART B [id number] HEDY TRUJILLO PATIENT MEDICARE (WNR) MEDICARE (M) PART B March 13, 2014 PART B [id number] HEDY TRUJILLO PATIENT MEDICARE (WNR) MEDICARE (M) PART B March 13, 2014 PART B [id number] HEDY TRUJILLO PATIENT MEDICARE (WNR) MEDICARE (M) PART B March 13, 2014 PART B [id number] HEDY TRUJILLO PATIENT MEDICARE (WNR) MEDICARE (M) PART B March 13, 2014 PART B [id number] HEDY TRUJILLO PATIENT MEDICARE (WNR) MEDICARE (M) PART B March 13, 2014 PART B [id number] HEDY TRUJILLO PATIENT MEDICARE (WNR) MEDICARE (M) PART B March 13, 2014 PART B [id number] HEDY TRUJILLO PATIENT MEDICARE (WNR) MEDICARE (M) PART B March 13, 2014 PART B [id number] HEDY TRUJILLO PATIENT MEDICARE (WNR) MEDICARE (M) PART B Jan 11, 2003 PART B [id number] HEDY TRUJILLO PATIENT MEDICARE (WNR) MEDICARE (M) PART B Jan 11, 2003 PART B [id number] HEDY TRUJILLO PATIENT MEDICARE (WNR) MEDICARE (M) PART B Jan 11, 2003 PART B [id number] HEDY TRUJILLO PATIENT MEDICARE (WNR) MEDICARE (M) PART B Jan 11, 2003 PART B [id number] HEDY TRUJILLO PATIENT MEDICARE (WNR) MEDICARE (M) PART A Nov 13, 2000 PART A [id number] HEDY TRUJILLO PATIENT MEDICARE (WNR) MEDICARE (M) PART A Nov 13, 2000 PART A [id number] HEDY TRUJILLO PATIENT MEDICARE (WNR) MEDICARE (M) PART A Nov 13, 2000 PART A [id number] HEDY TRUJILLO PATIENT MEDICARE (WNR) MEDICARE (M) PART A Nov 13, 2000 PART A [id number] HEDY TRUJILLO PATIENT MEDICARE (WNR) MEDICARE (M) PART A Jul 14, 1995 PART A [id number] HEDY TRUJILLO PATIENT MEDICARE (WNR) MEDICARE (M) PART A Jul 14, 1995 PART A [id number] HEDY TRUJILLO PATIENT MEDICARE (WNR) MEDICARE (M) PART A Jul 14, 1995 PART A [id number] HEDY TRUJILLO PATIENT MEDICARE (WNR) MEDICARE (M) PART A Jul 14, 1995 PART A [id number] HEDY TRUJILLO PATIENT MEDICARE (WNR) MEDICARE (M) PART A Jul 14, 1995 PART A [id number] HEDY TRUJILLO PATIENT MEDICARE (WNR) MEDICARE (M) PART B Jul 14, 1995 PART B [id number] HEDY TRUJILLO PATIENT MEDICARE (WNR) MEDICARE (M) PART B Jul 14, 1995 PART B [id number] HEDY TRUJILLO PATIENT MEDICARE (WNR) MEDICARE (M) PART A Jul 14, 1995 PART A [id number] HEDY TRUJILLO PATIENT MEDICARE (WNR) MEDICARE (M) PART A Jul 14, 1995 PART A [id number] HEDY TRUJILLO PATIENT MEDICARE (WNR) MEDICARE (M) PART A Jul 14, 1995 PART A [id number] HEDY TRUJILLO PATIENT MEDICARE (WNR) MEDICARE (M) PART A Jul 14, 1995 PART A [id number] HEDY TRUJILLO PATIENT MEDICARE (WNR) MEDICARE (M) PART A Jul 14, 1995 PART A [id number] HEDY TRUJILLO PATIENT MEDICARE (WNR) MEDICARE (M) PART A Jul 14, 1995 PART A [id number] HEDY TRUJILLO PATIENT MEDICARE PART D (WNR) MEDICARE (M) PART D Oct 13, 2022 PART D [id number] HEDY TRUJILLO PATIENT [facility] MCR (WNR) MEDICARE ADVANTAGE MCR (WNR) Oct 13, 2022 [id number] HEDY TRUJILLO PATIENT Selected Encounter This section includes the information on record at [place] for the Encounter. Date/Time Encounter Type Encounter Description Reason Provider Source Feb 07, 2025 08:30 AM OFFICE O/P EST MOD 30 MIN PRIMARY CARE/MEDICINE ICD-10-CM F19.20 Other psychoactive substance dependence, uncomplicated KRYSTALRLY,IVETTEE R IHE Encounter Template Text not used by [place] Assessments - Encounter Diagnoses This section includes the primary and secondary diagnoses documented for the Encounter. Date/Time Primary/Secondary Diagnosis Diagnosis Name Provider Source Feb 07, 2025 04:52 PM PRIMARY Other psychoactive substance dependence, uncomplicated [facility] Feb 07, 2025 04:52 PM SECONDARY Depression, unspecified [facility] Feb 07, 2025 04:52 PM SECONDARY Essential (primary) hypertension [facility] Feb 07, 2025 04:52 PM SECONDARY Hypothyroidism, unspecified [facility] Feb 07, 2025 04:52 PM SECONDARY Other chronic pain [facility] Feb 07, 2025 04:52 PM SECONDARY Post-traumatic stress disorder, chronic [facility] Plan of Treatment: Future Appointments (+ 6 months) and Future Tests (+/- 45 days) The Plan of Treatment section includes future care activities for the patient from all [place] treatmentfacilities. This section includes future appointments and future orders which are active, pending or scheduled. Future Appointments This section includes appointments that were scheduled to occur 6 months from the date of the Encounter, up to a maximum of 20 appointments. The data comes from all [place] treatment facilities. Appointment Date/Time Appointment Type Appointme nt Facility Name Feb 13, 2025 08:00 AM AMBULATORY - PSYCHIATRY [facility] Feb 25, 2025 11:00 AM AMBULATORY - PSYCHIATRY [facility] Feb 27, 2025 11:00 AM AMBULATORY - SURGERY [facility] March 25, 2025 10:30 AM AMBULATORY - PSYCHIATRY [facility] March 25, 2025 10:47 AM AMBULATORY - MEDICINE [facility] Apr 22, 2025 10:30 AM AMBULATORY - PSYCHIATRY [facility] Apr 23, 2025 02:00 PM AMBULATORY - PSYCHIATRY [facility] Apr 28, 2025 10:30 AM AMBULATORY - PSYCHIATRY [facility] Apr 29, 2025 09:30 AM AMBULATORY - PSYCHIATRY [facility] Apr 29, 2025 10:14 AM AMBULATORY - MEDICINE [facility] May 27, 2025 10:30 AM AMBULATORY - PSYCHIATRY [facility] Jun 24, 2025 10:30 AM [facility] Type Comment Feb 25, 2025 11:21 AM [facility] GCMS SCREEN,U/M URINE,RA NDOM Specimen Type: URINE,RANDOM Comment: ~For Test: GCMS SCREEN,U/M ~amphetamine metabolites Urine drug screen is POSITIVE. The following drugs were detected: Gabapentin Methamphetamine Amphetamine Fentanyl Nicotine Cotinine Ordering Provider: MARCIA CARTY Report Released Date/Time: Feb 25, 2025 10:34 AM Reporting Lab: [address] [address] Performing Lab: [facility] Dept of Pathology [facility] [id number] GCMS SCREEN,U/M comment Feb 25, 2025 11:21 AM [facility] TOX SCREEN ([facility]) URINE,RANDOM Specimen Type : URINE,RANDOM Comment: ~For Test: GCMS SCREEN,U/M ~amphetamine metabolites Ordering Provider: MARCIA CARTY Report Released Date/Time: Feb 25, 2025 10:34 AM Reporting Lab: [address] [address] Performing Lab: [address] [address] BENZODIAZEPINES Not Detected Not Detecte d CANNABINOIDS,URINE [...] Not Detected Jan 28, 2025 09:08 AM [facility] GCMS SCREEN,U/M URINE,RANDOM Specimen Type: URINE,RANDOM Comment: ~For Test: GCMS SCREEN,U/M ~amphetamine metatolites Urine drug screen is POSITIVE. The following drugs were detected: Methamphetamine Amphetamine Gabapentin Nicotine Cotinine Caffeine Ordering Provider: MARCIA CARTY Report Released Date/Time: Jan 28, 2025 08:56 AM Reporting Lab: [address] [address] Performing Lab: [facility] Dept of Pathology [facility] [phone] GCMS SCREEN,U/M comment Jan 28, 2025 09:08 AM [facility] TOX SCREEN ([facility]) URINE,RANDOM Specimen Type : URINE,RANDOM Comment: ~For Test: GCMS SCREEN,U/M ~amphetamine metatolites Ordering Provider: MARCIA CARTY Report Released Date/Time: Dec 31, 2024 02:54 PM Reporting Lab: [address] [address] Performing Lab: [address] [address] BENZODIAZEPINES Not Detected Not Detecte d CANNABINOIDS,URINE [...] Pain Height Weight Body Mass Index Source Feb 07, 2025 08:13 AM 160/81 [facility] Feb 07, 2025 08:10 AM 160/81 [facility] Feb 07, 2025 08:10 AM 79 178/101 16 93 8 164.46 22 [facility] Feb 07, 2025 08:05 AM 164.46 22 [facility] Social History: Smoking Status (Most current) and [...] Smoking Status Comment Facil ity Feb 07, 2025 08:30 AM VA-TOBACCO USE ELOISE RY DAY CIGARETTES [facility] Tobacco Use History This section includes a history of the smoking, or tobacco-related health factors, that were collected on or before the date of the Encounter. The data comes from the [place] facility where the Encounter took place. 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 [facility] Feb 07, 2025 08:30 AM VA-TOBACCO USE ELOISE RY DAY CIGARETTES [facility] Feb 07, 2025 08:30 AM VA-TOBACCO USE MED NO [facility] Feb 07, 2023 11:00 AM VA-TOBACCO USE 30 YEARS OR MORE [facility] Feb 07, 2023 11:00 AM VA-TOBACCO USE ADVICE [facility] Feb 07, 2023 11:00 AM VA-TOBACCO USE 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 [facility] Feb 07, 2023 11:00 AM VA-TOBACCO USE MED NOTIFY PROVIDER [facility] Feb 07, 2023 11:00 AM VA-TOBACCO USE WI 30 MIN OF WAKEUP [facility] Feb 07, 2023 11:00 AM VA-TOBACCO USER EVERY DAY [facility] Feb 16, 2022 01:00 PM VA-TOBACCO USE 30 YEARS OR MORE [facility] Feb 16, 2022 01:00 PM VA-TOBACCO USE ADVICE [facility] Feb 16, 2022 01:00 PM VA-TOBACCO USE 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 [facility] Feb 16, 2022 01:00 PM VA-TOBACCO USE MED NO [facility] Feb 16, 2022 01:00 PM VA-TOBACCO USE WI 30 MIN OF WAKEUP [facility] Feb 16, 2022 01:00 PM VA-TOBACCO USER EVERY DAY [facility] Jun 21, 2020 04:12 AM CURRENT TOBACCO USER [facility] Jun 21, 2020 04:12 AM TOBACCO OFFERRED S TOP SMOKING CLINIC [facility] Jun 09, 2020 01:24 PM CURRENT TOBACCO USER [facility] Jun 09, 2020 01:24 PM TOBACCO OFFERRED S TOP SMOKING CLINIC [facility] Jul 24, 2019 01:11 PM VA-TOBACCO USE 30 YEARS OR MORE [facility] Jul 24, 2019 01:11 PM VA-TOBACCO USE ADVICE [facility] Jul 24, 2019 01:11 PM VA-TOBACCO USE 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 [facility] Jul 24, 2019 01:11 PM VA-TOBACCO USE MED NO [facility] Jul 24, 2019 01:11 PM VA-TOBACCO USE WI 30 MIN OF WAKEUP [facility] Jul 24, 2019 01:11 PM VA-TOBACCO USER EVERY DAY [facility] March 23, 2018 09:34 AM SMOKING CESSATION NO [facility] March 16, 2018 08:14 PM CURRENT TOBACCO USER [facility] March 16, 2018 08:14 PM SMOKER - OFFERRED MEDS (PROVIDER) [facility] March 16, 2018 08:14 PM TOBACCO OFFERRED S TOP SMOKING CLINIC [facility] Advance Directives: All historical and current Section Date Range: From patient's date of to the date document was created. This section includes ALL of a patient's completed or amended [place] Advance and Rescinded Directives. The entries below indicate that a directive exists for the patient, but an actual copy is not included with this document. The data comes from all [place] facilities. Date Advance Directives Provider Source Nov 28, 2017 ADVANCE DIRECTIVE DISCUSSION JOSE ALEJANDRO BULLARD [facility] March 16, 2015 ADVANCE DIRECTIVE CASEY FELIX [facility] Jun 30, 2014 ADVANCE DIRECTIVE DISCUSSION IVONE TOL[place]O COLT [facility] Jan 21, 2003 ADVANCE DIRECTIVE DISCUSSION TJ MERCADO [facility] Jan 07, 2003 ADVANCE DIRECTIVE DISCUSSION SANCHEZ [place] [facility] Encounter Notes: All associated encounter notes This section contains the clinical notes associated to the Encounter. Date/Time Encounter Note(s) Provider Source Apr 29, 2025 03:43 PM EDUCATION NOTE: LOCAL TITLE: PATIENT LETTER (MAILED TO PATIENT) STANDARD TITLE: EDUCATION NOTE DATE OF NOTE: APR 29, 2025@15:43 ENTRY DATE: APR 29, 2025@15:43:50 AUTHOR: TAMAR SPANN EXP JACOBOIGNER: URGENCY: STATUS: COMPLETED [facility] [address] [facility] [address] APR 29, 2025 AARON TRUJILLO [address] [address] Dear Mr. Zazueta Sultana Trujillo, Please call Emy at [phone], she found your phone on the road, and wants to return it to you. TAMAR SPANN Registered Nurse TAMAR SPANN [facility] Feb 07, 2025 09:02 AM PRIMARY CARE OUTPA TIENT NOTE: LOCAL TITLE: PRIMARY CARE STANDARD TITLE: PRIMARY CARE OUTPATIENT NOTE DATE OF NOTE: FEB 07, 2025@09:02 ENTRY DATE: FEB 07, 2025@08:02:52 AUTHOR: LINDA ORTIZ EXP JACOBOIGNER: WAN MACIAS URGENCY: STATUS: COMPLETED PRIMARY CARE Has ADDENDA OUTPATIENT NOTE - AARON TRUJILLO (1960) - 02/07/2025 Reason for encounter: medication refills HPI: Mr. Aaron Trujillo is a 64 year old male with PMHx of substance Use Disorder (opioids, methamphetamine), HTN, hypothyroidism, chronic low back pain, and (?) COPD who presents today for medication refills. To summarize, Mr. Trujillo has not been seen in primary care clinic since 2022. He has been involved with our [facility] clinic with varying periods of consistency. He struggles with opioid use disorder as well as methamphetamine use disorder for which he is followed by Dr. Carty. He is on suboxone 8mg. Per previous [facility] notes, he and his psychiatrist have discussed rehabilitation at [facility] for his substance use as well as his PTSD which is the underlying component to his substance use. However, to receive rehab at [facility] he must have refills of medications for his chronic conditions. He reported that he has tried to do rehab at [facility] in the past, without medication refills and that it was a complicated process that made him leave early. He reports that he is in need of his thyroid and blood pressure medications as well as his gabapentin. Reports that he has not had his blood pressure medication in some time. He does not track his blood pressure at all but states that it was under better control when he was on his amlodipine. Per [facility], he has not filled his levothyroxine since Oct 2024 but states that he has been taking it religiously and never missed a dose. He is not forthcoming with this underwriter solicitation director regarding other details of his health in relation to these medications. In regards to his gabapentin, he has previously been prescribed 800mg TID but this was dose reduced due to history of multiple AKIs and CrCl < 79 for which 600mg TID is the maximum recommended daily dose. Refills for 600mg TID have been provided since Sep 2024. The patient notes he needs this medication for his knee pain and demanded the original dose. He was unwilling to listen to rationale for reduced dose, unwilling to participate in blood draw for renal function, and even used threatening language and gestures at this underwriter solicitation director in regards to the refills. He went so far as so state that if refills were not provide he will just go get the medication elsewhere and will find a way to get the medication himself. Further conversation was aborted at this time and the patient left the exam room before the visit could be meaningfully concluded. PAST MEDICAL HISTORY: - Substance Use Disorder (opioids, methamphetamine) - HTN - Hypothyroidism - Chronic low back pain - ?COPD SOCIAL HISTORY - ETOH Use: Current ETOH: Yes >10 standard drinks at a time; drinks a few times each month - Tobacco use: Current Smoker: Yes. - Patient smokes: 1 Pack(s) per day --> Total pack years: Missing Info - Marital status: - Residence: Homeless As of 02/07/23, reports living back with previously estranged . Was previously homeless or between housing (friend in [place], [place]) Reports > 1 PPD Hx starting in his 20s; currently reports only 4-5 cigarettes daily MEDICATIONS RECONCILIATION: ALBUTEROL 90MCG (CFC-F) 200D ORAL INHL - INH 2 puffs by inhalation Q4H PRN AMLODIPINE BESYLATE 10MG TAB - take one tablet PO DAILY BUPRENORPHINE 8MG/NALOXONE 2MG SL FILM - dissolve 1 film SL TID GABAPENTIN 600MG TAB - take one tablet PO TID LEVOTHYROXINE NA 150MCG TAB - take one tablet PO DAILY in the morning NALOXONE HCL 4MG/SPRAY SOLN NASAL SPRAY - instill 1 spray in nose once PREDNISONE 20MG TAB - take two tablets PO DAILY TAMSULOSIN HCL 0.4MG CAP - take one capsule PO QPM EXAM VITAL SIGNS: Date@Time[Site] BP 02/07/25 08:13[506] 160/81 Units mmHg General: adult, anxious appearing male HEENT: EOMI. MMM. RESPIRATORY: Normal work of breathing on room air. NEURO: Normal gait. No focal neurologic deficits PSYCH: Poor insight and judgement ASSESSMENT AND PLAN: Upon entering the exam room the patient was visibly agitated and irritable. Brief, terse and selective discussion was had regarding hypertension and thyroid medications. When this underwriter solicitation director attempted to review gabapentin prescription history, proper and safe usage, and need for monitoring labs the patient became verbally abusive, raising the volume of their voice as well as using threatening and intimidating language. As this underwriter solicitation director attempted to de-escalate the situation and explain the need for medication review the patient's behavior became more aggressive with the use of threatening gestures that raised concerns for this underwriter solicitation director's safety. Despite this underwriter solicitation director's willingness to assist with appropriate refills and address healthcare needs, the patient refused to engage in further discourse and abruptly left the exam room to wait in the lobby. Due to the nature of the encounter, this underwriter solicitation director was unable to complete a full assessment, address healthcare maintenance, or ensure safe medication management. The incident was documented and reported accordingly. #Chronic Pain He has chronic knee and back pain whose management are slightly complicated by the fact that he also has opioid substance use disorder. Gabapentin has been effective for him. Previous dose of 800mg TID decreased to 600mg TID due to previous CrCl < 79 and recurrent KORIN in the past. Refills not provided today due to premature cessation of appointment and unwillingness to engage in healthcare with monitoring labs as well as threatening and verbally abusive behavior towards this underwriter solicitation director. #Substance Use Disorder #Opioid, cocaine, methamphetamines #PTSD, Depression, Suicidal Ideation Pt has a longstanding history of substance use, including opioid misuse. He has been following psychiatry and [facility]. He has been on Suboxone. Multiple past hospitalizations for SI and acute alcohol intoxication. He was admitted to inpatient psych on 01/06/23-01/10/23. -Continue to follow with psychiatry -Continue Suboxone as prescribed #Hypothyroidism Variable TSH and history of multiple medication titrations. Most recent TSH on 1.3 on Sep 2024 . Levothyroxine 150mcg refilled today. Will need follow up TSH labs to monitor dosing for appropriateness. #HTN Pt has a known diagnosis of HTN, uncontrolled based on recent clinic visits and not currently on medication. - Amlodipine 10mg refills provided #BPH - Refills of Flomax 0.4mg daily provided HEALTH MAINTENANCE -Influenza:unable to address -Pneumovac: unable to address -Prevnar: Due at 63 - unable to address -Shingles: unable to address -Tdap: 07/2019 -CRC:unable to address -AAA: unable to address -Lung CA: unable to address -Lipids: 09/30/2021 -- Chol 167, HDL 52, LDL 94 -A1C: 5.1% on 01/05/2022, update unable to address -HIV: unable to address -HCV/HBV: unable to address FUTURE APPOINTMENT(S): Visit Date/Time Visit Information 02/13/25 08:00 AM ROBERTA/SARRTP ADMISSIONS 02/25/25 11:00 AM JENNIFER PARRY 1 ABOUT THIS APPOINTMENT: Encounter type: [id number]. Case was discussed with Supervising Attending: Dr. Macias Who agrees with the treatment plan. P-MEDICATION RECONCILIATION: Review of medications with the patient at the time of this encounter included: Patient local and remote allergies, active and pending prescriptions dispensed from this [place] (local) and dispensed from another [place] or [facility] facility (remote) as well as local inpatient and clinic medications (IMOs), locally documented non-VA medications and local prescriptions that have or been discontinued in the past 90 days. With the exception of allergies, if a category is not listed below, it means there were no relevant medications for the patient. The patient /family member received an updated list of current medications. Patient verbalized understanding. Local & Remote Allergies: CODEINE Active Outpatient Medications (including Supplies): ALBUTEROL 90MCG (CFC-F) 200D ORAL INHL INHALE 2 PUFFS BY ACTIVE (S) INHALATION EVERY 4 HOURS NEEDED Indication: FOR SHORTNESS OF BREATH AMLODIPINE BESYLATE 10MG TAB TAKE ONE TABLET BY MOUTH ONCE PENDING DAILY Indication: FOR BLOOD PRESSURE BUPRENORPHINE 8MG/NALOXONE 2MG SL FILM DISSOLVE 1 FILM ACTIVE UNDER THE TONGUE THREE TIMES A DAY Indication: FOR OPIOID DEPENDENCE GABAPENTIN 600MG TAB TAKE ONE TABLET BY MOUTH THREE TIMES ACTIVE A DAY Indication: FOR NERVE PAIN LEVOTHYROXINE NA 150MCG TAB TAKE ONE TABLET BY MOUTH EVERY PENDING DAY IN THE MORNING Indication: FOR THYROID NALOXONE HCL 4MG/SPRAY SOLN NASAL SPRAY INSTILL 1 SPRAY IN ACTIVE NOSE ONCE DO NOT PRIME OR TEST THE SPRAY DEVICE. GENTLY INSERT TIP INTO ONE NOSTRIL AND PRESS THE PLUNGER FIRMLY TO GIVE THE ENTIRE DOSE. USE EACH DEVICE ONLY ONCE. Indication: FOR SUSPECTED OPIOID OVERDOSE PREDNISONE 20MG TAB TAKE TWO TABLETS BY MOUTH ONCE DAILY ACTIVE Indication: FOR INFLAMMATION TAMSULOSIN HCL 0.4MG CAP TAKE ONE CAPSULE BY MOUTH EVERY PENDING EVENING (TAKE 30 MINUTES AFTER THE SAME MEAL EACH DAY) Indication: FOR PROSTATE /aren/ Linda Ortiz Internal Medicine Resident Signed: 02/07/2025 16:53 /aren/ WAN MACIAS Attending Physician, Internal Medicine Cosigned: 02/09/2025 21:47 02/09/2025 ADDENDUM STATUS: COMPLETED Mr. Trujillo appeared to be inebriated and was definitely verbally abusive and physically threatening to primary care providers. Unable to complete the visit as he terminated it abruptly. /aren/ WAN MACIAS Attending Physician, Internal Medicine Signed: 02/09/2025 21:26 02/10/2025 ADDENDUM STATUS: COMPLETED RNCM attempted to contact -reached voicemail but mailbox was full. RNCM could not leave a message. /aren/ RULA GUZMAN Registered Nurse Signed: 02/10/2025 12:20 LINDA ORTIZ [facility] Feb 07, 2025 08:13 AM PRIMARY CARE NURSI NG NOTE: LOCAL TITLE: PRIMARY CARE PREVENTIVE HEALTH STANDARD TITLE: PRIMARY CARE NURSING NOTE DATE OF NOTE: FEB 07, 2025@08:13 ENTRY DATE: FEB 07, 2025@08:13:11 AUTHOR: MICHI HOPKINS COSIGNER: URGENCY: STATUS: COMPLETED RHS Screen: RHS Screen Session Format: Face to Face Environmental Check Upon inquiry, the individual reports that the environment is safe to proceed. Informed Consent to Screen and Document The individual does NOT consent to proceed with screening. Alcohol Use Screen (AUDIT-C): Alcohol Screen: SCREEN FOR ALCOHOL (AUDIT-C) An alcohol screening test (AUDIT-C) was negative (score=0). 1. How often did you have a drink containing alcohol in the past year? Consider a drink to be a 12 ounce can or bottle of regular beer, 8 ounces of malt liquor, a 5 ounce glass of table wine, or a 1.5 ounce shot of liquor (like scotch, gin, or vodka). Never 2. How many drinks containing alcohol did you have on a typical day when you were drinking in the past year? Response not required due to responses to other questions. 3. How often did you have six or more drinks on one occasion in the past year? Response not required due to responses to other questions. Depression Screening: Perform PHQ-2 A PHQ-2 screen was performed. The score was 2 which is a negative screen for depression. Over the past two weeks, how often have you been bothered by the following problems? 1. Little interest or pleasure in doing things Several days 2. Feeling down, depressed, or hopeless Several days N-MEDICATION RECONCILIATION: Review of medications and allergies at the time of this encounter included: Local and remote allergies, active and pending prescriptions dispensed from this [place] (local) and dispensed from another [place] or [facility] facility (remote) as well as local inpatient and clinic medications (IMOs), locally documented non-VA medications and local prescriptions that have or been discontinued in the past 90 days. If a category is not listed below, it means there were no known relevant local and/or remote medications and/or allergies. The patient/family member received an updated list of current medications. Local & Remote Allergies: CODEINE Active Outpatient Medications (including Supplies): ALBUTEROL 90MCG (CFC-F) 200D ORAL INHL INHALE 2 PUFFS BY ACTIVE INHALATION EVERY 4 HOURS NEEDED Indication: FOR SHORTNESS OF BREATH BUPRENORPHINE 8MG/NALOXONE 2MG SL FILM DISSOLVE 1 FILM ACTIVE UNDER THE TONGUE THREE TIMES A DAY Indication: FOR OPIOID DEPENDENCE GABAPENTIN 600MG TAB TAKE ONE TABLET BY MOUTH THREE TIMES ACTIVE A DAY Indication: FOR NERVE PAIN NALOXONE HCL 4MG/SPRAY SOLN NASAL SPRAY INSTILL 1 SPRAY IN ACTIVE NOSE ONCE DO NOT PRIME OR TEST THE SPRAY DEVICE. GENTLY INSERT TIP INTO ONE NOSTRIL AND PRESS THE PLUNGER FIRMLY TO GIVE THE ENTIRE DOSE. USE EACH DEVICE ONLY ONCE. Indication: FOR SUSPECTED OPIOID OVERDOSE PREDNISONE 20MG TAB TAKE TWO TABLETS BY MOUTH ONCE DAILY ACTIVE Indication: FOR INFLAMMATION N-HTN Assess Elevated BP>=140/90: The patient's most recent Blood Pressure recorded in the computer exceeds the recommended maximum of 139/89. Most recent Blood Pressure: 160/81 (02/07/2025 08:10) Enter In-Clinic Blood Pressure. Blood Pressure: 160/81 Manual N-Stress Discussed ([facility]): [place] endores experiencing substantial stress or worry in the past month. [place] is not interested in further intervention for stress at this time. Tobacco Use Screening: The patient smokes cigarettes every day. The patient has never used other types of tobacco. Patient was advised to stop smoking and/or using other tobacco products. Advised patient that a combination of behavioral counseling and FDA-approved cessation medications is the most effective way to ensure their success in stopping to smoke and/or using other tobacco products. The patient was not interested in additional information about behavioral counseling and other support strategies discussed. Informed patient that medications can help with cravings and withdrawal symptoms, and they greatly increase the chances of successfully stopping your tobacco use. The patient was not interested in a prescription for tobacco cessation medications. N HEALTHY SKIN REMINDER: Do you use sunscreen when [id number]? NO. Education provided on the benefits of sunscreen use. Do you check your skin regularly for new spots or changes in existing moles or lesions? YES. Do you require assistance to transfer or change position? NO. Are you confined to bed or a chair or are you a wheel-chair user? NO. Do you have any medical devices (e.g. artificial limb, braces, splint, oxygen tubing, Ramirez or Condom catheter, tracheostomy, feeding tube, etc)? NO. Do you have a current pressure injury or history of a pressure injury (i.e. [place]) that is NOT related to a medical payment poster? NO. /aren/ MICHI HOPKINS LPN Signed: 02/07/2025 08:15 MICHI HOPKINS [facility]
--- OUTSIDE RECORDS SUMMARY | 2025-02-13 03:56 | XMS_ITS | Encounter Summary ---
Author Name [facility] Organization [facility] ([place]) Address [address] [place] [id number] Care Team Providers Care Internet Sales Director Name Role Phone SEAN TRACY Primary Care [...] Name Patient's Relationship to Policy Lemon [facility] (WNR) MEDICARE ADVANTAGE [facility] ([facility]) March 13, 2017 [id number] HEDY OLIVAREZ PATIENT MEDICARE (WNR) MEDICARE (M) PART B March 13, 2014 PART B [id number] HEDY OLIVAREZ PATIENT MEDICARE (WNR) MEDICARE (M) PART B March 13, 2014 PART B [id number] HEDY OLIVAREZ PATIENT MEDICARE (WNR) MEDICARE (M) PART B March 13, 2014 PART B [id number] HEDY OLIAVREZ PATIENT MEDICARE (WNR) MEDICARE (M) PART B March 13, 2014 PART B [id number] HEDY OLIVAREZ PATIENT MEDICARE (WNR) MEDICARE (M) PART B March 13, 2014 PART B [id number] HEDY OLIVAREZ PATIENT MEDICARE (WNR) MEDICARE (M) PART B March 13, 2014 PART B [id number] HEDY OLIVAREZ PATIENT MEDICARE (WNR) MEDICARE (M) PART B March 13, 2014 PART B [id number] HEDY OLIVAREZ PATIENT MEDICARE (WNR) MEDICARE (M) PART B March 13, 2014 PART B [id number] HEDY OLIVAREZ PATIENT MEDICARE (WNR) MEDICARE (M) PART B March 13, 2014 PART B [id number] HEDY OLIVAREZ PATIENT MEDICARE (WNR) MEDICARE (M) PART B Jan 11, 2003 PART B [id number] HEDY OLIVAREZ PATIENT MEDICARE (WNR) MEDICARE (M) PART B Jan 11, 2003 PART B [id number] HEDY OLIVAREZ PATIENT MEDICARE (WNR) MEDICARE (M) PART B Jan 11, 2003 PART B [id number] HEDY OLIVAREZ PATIENT MEDICARE (WNR) MEDICARE (M) PART B Jan 11, 2003 PART B [id number] HEDY OLIVAREZ PATIENT MEDICARE (WNR) MEDICARE (M) PART A Nov 13, 2000 PART A [id number] HEDY OLIVAREZ PATIENT MEDICARE (WNR) MEDICARE (M) PART A Nov 13, 2000 PART A [id number] HEDY OLIVAREZ PATIENT MEDICARE (WNR) MEDICARE (M) PART A Nov 13, 2000 PART A [id number] HEDY OLIVAREZ PATIENT MEDICARE (WNR) MEDICARE (M) PART A Nov 13, 2000 PART A [id number] HEDY OLIVAREZ PATIENT MEDICARE (WNR) MEDICARE (M) PART A Jul 14, 1995 PART A [id number] HEDY OLIVAREZ PATIENT MEDICARE (WNR) MEDICARE (M) PART A Jul 14, 1995 PART A [id number] HEDY OLIVAREZ PATIENT MEDICARE (WNR) MEDICARE (M) PART A Jul 14, 1995 PART A [id number] HEDY OLIVAREZ PATIENT MEDICARE (WNR) MEDICARE (M) PART A Jul 14, 1995 PART A [id number] HEDY OLIVAREZ PATIENT MEDICARE (WNR) MEDICARE (M) PART A Jul 14, 1995 PART A [id number] HEDY OLIVAREZ PATIENT MEDICARE (WNR) MEDICARE (M) PART B Jul 14, 1995 PART B [id number] HEDY OLIVAREZ PATIENT MEDICARE (WNR) MEDICARE (M) PART B Jul 14, 1995 PART B [id number] HEDY OLIVAREZ PATIENT MEDICARE (WNR) MEDICARE (M) PART A Jul 14, 1995 PART A [id number] HEDY OLIVAREZ PATIENT MEDICARE (WNR) MEDICARE (M) PART A Jul 14, 1995 PART A [id number] HEDY OLIVAREZ PATIENT MEDICARE (WNR) MEDICARE (M) PART A Jul 14, 1995 PART A [id number] HEDY OLIVAREZ PATIENT MEDICARE (WNR) MEDICARE (M) PART A Jul 14, 1995 PART A [id number] HEDY OLIVAREZ PATIENT MEDICARE (WNR) MEDICARE (M) PART A Jul 14, 1995 PART A [id number] HEDY OLIVAREZ PATIENT MEDICARE (WNR) MEDICARE (M) PART A Jul 14, 1995 PART A [id number] HEDY OLIVAREZ PATIENT MEDICARE PART D (WNR) MEDICARE (M) PART D Oct 13, 2022 PART D [id number] HEDY OLIVAREZ PATIENT [facility] M[facility] (WNR) MEDICARE ADVANTAGE [facility] (WNR) Oct 13, 2022 [id number] [phone] HEDY OLIVAREZ PATIENT Selected Encounter This section includes the information on record at [place] for the Encounter. Date/Time Encounter Type Encounter Description Reason Pro vider Source Feb 13, 2025 07:56 AM Outpatient Encounter ADMIN PAT ACTIVTIES (MASNONCT) IHE Encounter Template Text not used by [place] Plan of Treatment: Future Appointments (+ 6 months) and Future Tests (+/- 45 days) The Plan of Treatment section includes future care activities for the patient from all [place] treatmentfacilities. This section includes future appointments and future orders which are active, pending or scheduled. Future Appointments This section includes appointments that were scheduled to occur 6 months from the date of the Encounter, up to a maximum of 20 appointments. The data comes from all [place] treatment facilities. Appointment Date/Time Appointment Type Appointme nt Facility Name Feb 25, 2025 11:00 AM AMBULATORY - PSYCHIATRY [facility] Feb 27, 2025 11:00 AM AMBULATORY - SURGERY [facility] March 25, 2025 10:30 AM AMBULATORY - PSYCHIATRY [facility] Lab Results: +/- 30 days of the encounter This section includes the Chemistry and Hematology Lab Results on record with [place] for the patient. Radiology Reports and Pathology Reports are provided separately, in subsequent sections. Lab Results This section contains the Chemistry/Hematology Results that were resulted 30 days before or 30 daysafter the date of the Encounter. Date/Time Source Result Type Result - Unit Interpretation Reference Range Specimen Type Comment Feb 25, 2025 11:[address] [facility] GCMS SCREEN,U/M URINE,RA NDOM Specimen Type: URINE,RANDOM Comment: ~For Test: GCMS SCREEN,U/M ~amphetamine metabolites Urine drug screen is POSITIVE. The following drugs were detected: Gabapentin Methamphetamine Amphetamine Fentanyl Nicotine Cotinine Ordering Provider: MARCIA CARTY Report Released Date/Time: Feb 25, 2025 10:34 AM Reporting Lab: [place] [id number] [facility] [address] Performing Lab: [facility] Dept of Pathology [facility] [address] GCMS SCREEN,U/M comment Feb 25, 2025 11:[address] [facility] TOX SCREEN ([facility]) URINE,RANDOM Specimen Type : URINE,RANDOM Comment: ~For Test: GCMS SCREEN,U/M ~amphetamine metabolites Ordering Provider: MARCIA CARTY Report Released Date/Time: Feb 25, 2025 10:34 AM Reporting Lab: [address] [address] Performing Lab: [address] [address] BENZODIAZEPINES Not Detected Not Detecte d CANNABINOIDS,URINE [...] Detected Jan 28, 2025 09:[address] [facility] GCMS SCREEN,U/M URINE,RANDOM Specimen Type: URINE,RANDOM Comment: ~For Test: GCMS SCREEN,U/M ~amphetamine metatolites Urine drug screen is POSITIVE. The following drugs were detected: Methamphetamine Amphetamine Gabapentin Nicotine Cotinine Caffeine Ordering Provider: MARCIA CARTY Report Released Date/Time: Jan 28, 2025 08:56 AM Reporting Lab: [address] [address] Performing Lab: [facility] Dept of Pathology [facility] [id number] GCMS SCREEN,U/M comment Jan 28, 2025 09:[address] [facility] TOX SCREEN ([facility]) URINE,RANDOM Specimen Type : URINE,RANDOM Comment: ~For Test: GCMS SCREEN,U/M ~amphetamine metatolites Ordering Provider: MARCIA CARTY Report Released Date/Time: Dec 31, 2024 02:54 PM Reporting Lab: [address] [address] Performing Lab: [address] [address] BENZODIAZEPINES Not Detected Not Detecte d CANNABINOIDS,URINE [...] and tobacco- related health factors from the [place] facility where the Encounter took place. Current Smoking Status This section includes the most current smoking, or tobacco-related health factor, from the [place] facility where the Encounter took place. Date/Time Current Smoking Status Comment Facil ity March 23, 2018 09:34 AM SMOKING CESSATION NO [facility] Advance Directives: All historical and current Section Date Range: From patient's date of to the date document was created. This section includes ALL of a patient's completed or amended [place] Advance and Rescinded Directives. The entries below indicate that a directive exists for the patient, but an actual copy is not included with this document. The data comes from all [facility]. Date Advance Directives Provider Source Nov 28, 2017 ADVANCE DIRECTIVE DISCUSSION JOSE ALEJANDRO BULLARD [facility] March 16, 2015 ADVANCE DIRECTIVE CASEY FELIX [facility] Jun 30, 2014 ADVANCE DIRECTIVE DISCUSSION IVONE [facility] Jan 21, 2003 ADVANCE DIRECTIVE DISCUSSION TJ MERCADO Jan 07, 2003 ADVANCE DIRECTIVE DISCUSSION SANCHEZ BROWN Encounter Notes: All associated encounter notes This section contains the clinical notes associated to the Encounter. Date/Time Encounter Note(s) Provider Source Feb 13, 2025 07:56 AM RESIDENTIAL FACILI TY NOTE: LOCAL TITLE: [facility]P TELEPHONE NOTE STANDARD TITLE: RESIDENTIAL FACILITY NOTE DATE OF NOTE: FEB 13, 2025@07:56 ENTRY DATE: FEB 13, 2025@07:56:54 AUTHOR: SANCHEZ LOPEZ EXP COSIGNER: URGENCY: STATUS: COMPLETED I CALLED THE CELL PHONE NUMBER IN HIS CHART TO DISCUSS W/ THIS CHART HIS APPT TO ADMIT TO [facility] THIS MORNING. AUTOMATED MESSAGE NOT AVAILABLE-- PLEASE TRY YOUR CALL AGAIN LATER WILL UPDATE STAFF. /aren/ Sanchez Lopez RN Perez 14-2 RN Signed: 02/13/2025 08:35 Receipt Acknowledged By: 02/13/2025 08:46 /es/ Allyssa Freed Advanced Shipping Inspector 02/17/2025 09:24 /es/ Elmer Covington LMSW, ACSW, BCD Substance Abuse Hazardous Waste Material Technician [facility]
--- OUTSIDE RECORDS SUMMARY | 2025-02-25 07:00 | XMS_ITS | Encounter Summary ---
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 Name Role Phone SEAN TRACY Primary Care [...] Lemon's Name Patient's Relationship to Policy Lemon [facility] ([facility]) MEDICARE ADVANTAGE [facility] ([facility]) March 13, 2017 [id number] HEDY OLIVAREZ PATIENT MEDICARE (WNR) MEDICARE (M) PART B March 13, 2014 PART B [id number] HEDY OLIVAREZ PATIENT MEDICARE (WNR) MEDICARE (M) PART B March 13, 2014 PART B [id number] HEDY OLIVAREZ PATIENT MEDICARE (WNR) MEDICARE (M) PART B March 13, 2014 PART B [id number] HEDY OLIVAREZ PATIENT MEDICARE (WNR) MEDICARE (M) PART B March 13, 2014 PART B [id number] HEDY OLIVAREZ PATIENT MEDICARE (WNR) MEDICARE (M) PART B March 13, 2014 PART B [id number] HEDY OLIVAREZ PATIENT MEDICARE (WNR) MEDICARE (M) PART B March 13, 2014 PART B [id number] HEDY OLIVAREZ PATIENT MEDICARE (WNR) MEDICARE (M) PART B March 13, 2014 PART B [id number] HEDY OLIVAREZ PATIENT MEDICARE (WNR) MEDICARE (M) PART B March 13, 2014 PART B [id number] HEDY OLIVAREZ PATIENT MEDICARE (WNR) MEDICARE (M) PART B March 13, 2014 PART B [id number] HEDY OLIVAREZ PATIENT MEDICARE (WNR) MEDICARE (M) PART B Jan 11, 2003 PART B [id number] HEDY OLIVAREZ PATIENT MEDICARE (WNR) MEDICARE (M) PART B Jan 11, 2003 PART B [id number] HEDY OLIVAREZ PATIENT MEDICARE (WNR) MEDICARE (M) PART B Jan 11, 2003 PART B [id number] HEDY OLIVAREZ PATIENT MEDICARE (WNR) MEDICARE (M) PART B Jan 11, 2003 PART B [id number] HEDY OLIVAREZ PATIENT MEDICARE (WNR) MEDICARE (M) PART A Nov 13, 2000 PART A [id number] HEDY OLIVAREZ PATIENT MEDICARE (WNR) MEDICARE (M) PART A Nov 13, 2000 PART A [id number] HEDY OLIVAREZ PATIENT MEDICARE (WNR) MEDICARE (M) PART A Nov 13, 2000 PART A [id number] HEDY OLIVAREZ PATIENT MEDICARE (WNR) MEDICARE (M) PART A Nov 13, 2000 PART A [id number] HEDY OLIVAREZ PATIENT MEDICARE (WNR) MEDICARE (M) PART A Jul 14, 1995 PART A [id number] HEDY OLIVAREZ PATIENT MEDICARE (WNR) MEDICARE (M) PART A Jul 14, 1995 PART A [id number] HEDY OLIVAREZ PATIENT MEDICARE (WNR) MEDICARE (M) PART A Jul 14, 1995 PART A [id number] HEDY OLIVAREZ PATIENT MEDICARE (WNR) MEDICARE (M) PART A Jul 14, 1995 PART A [id number] HEDY OLIVAREZ PATIENT MEDICARE (WNR) MEDICARE (M) PART A Jul 14, 1995 PART A [id number] HEDY OLIVAREZ PATIENT MEDICARE (WNR) MEDICARE (M) PART B Jul 14, 1995 PART B [id number] HEDY OLIVAREZ PATIENT MEDICARE (WNR) MEDICARE (M) PART B Jul 14, 1995 PART B [id number] HEDY OLIVAREZ PATIENT MEDICARE (WNR) MEDICARE (M) PART A Jul 14, 1995 PART A [id number] HEDY OLIVAREZ PATIENT MEDICARE (WNR) MEDICARE (M) PART A Jul 14, 1995 PART A [id number] HEDY OLIVAREZ PATIENT MEDICARE (WNR) MEDICARE (M) PART A Jul 14, 1995 PART A [id number] HEDY OLIVAREZ PATIENT MEDICARE (WNR) MEDICARE (M) PART A Jul 14, 1995 PART A [id number] HEDY OLIVAREZ PATIENT MEDICARE (WNR) MEDICARE (M) PART A Jul 14, 1995 PART A [id number] HEDY OLIVAREZ PATIENT MEDICARE (WNR) MEDICARE (M) PART A Jul 14, 1995 PART A [id number] HEDY OLIVAREZ PATIENT MEDICARE PART D (WNR) MEDICARE (M) PART D Oct 13, 2022 PART D [id number] HEDY OLIVAREZ PATIENT [facility] MCR (WNR) MEDICARE ADVANTAGE MCR (WNR) Oct 13, 2022 [id number] HEDY OLIVAREZ PATIENT Selected Encounter This section includes the information on record at [place] for the Encounter. Date/Time Encounter Type Encounter Description Reason Provider Source Feb 25, 2025 11:00 AM OFFICE O/P EST MOD 30 MIN SUBSTANCE USE DISORDER IND ICD-10-CM F11.21 Opioid dependence, in remission ALEJANDRO CARSON [place] Encounter Template Text not used by [place] Assessments - Encounter Diagnoses This section includes the primary and secondary diagnoses documented for the Encounter. Date/Time Primary/Secondary Diagnosis Diagnosis Name Provider Source Feb 25, 2025 11:41 AM PRIMARY Opioid dependence, in remission ALEJANDRO CARSON [facility] Feb 25, 2025 11:41 AM SECONDARY Oth stimulant use, unsp with unsp stimulant-induce d disorder ALEJANDRO CARSON [facility] Plan of Treatment: Future Appointments (+ 6 months) and Future Tests (+/- 45 days) The Plan of Treatment section includes future care activities for the patient from [facility] [place] [facility] This section includes future appointments and future orders which are active, pending or scheduled. Future Appointments This section includes appointments that were scheduled to occur 6 months from the date of the Encounter, up to a maximum of 20 appointments. The data comes from all [place] treatment facilities. Appointment Date/Time Appointment Type Appointme nt Facility Name Feb 27, 2025 11:00 AM AMBULATORY - SURGERY [facility] March 25, 2025 10:30 AM AMBULATORY - PSYCHIATRY [facility] March 25, 2025 10:47 AM AMBULATORY - MEDICINE [facility] Apr 22, 2025 10:30 AM AMBULATORY - PSYCHIATRY [facility] Apr 23, 2025 02:00 PM AMBULATORY - PSYCHIATRY [facility] Apr 28, 2025 10:30 AM AMBULATORY - PSYCHIATRY [facility] Apr 29, 2025 09:30 AM AMBULATORY - PSYCHIATRY [facility] Apr 29, 2025 10:14 AM AMBULATORY - MEDICINE [facility] May 27, 2025 10:30 AM AMBULATORY - PSYCHIATRY [facility] Jun 24, 2025 10:30 AM AMBULATORY - PSYCHIATRY [facility] Lab Results: +/- 30 days of the encounter This section includes the Chemistry and Hematology Lab Results on record with [place] for the patient. Radiology Reports and Pathology Reports are provided separately, in subsequent sections. Lab Results This section contains the Chemistry/Hematology Results that were resulted 30 days before or 30 daysafter the date of the Encounter. Date/Time Source Result Type Result - Unit Interpretation Reference Range Specimen Type Comment Feb 25, 2025 11:21 AM [facility] GCMS SCREEN,U/M URINE,RA NDOM Specimen Type: URINE,RANDOM Comment: ~For Test: GCMS SCREEN,U/M ~amphetamine metabolites Urine drug screen is POSITIVE. The following drugs were detected: Gabapentin Methamphetamine Amphetamine Fentanyl Nicotine Cotinine Ordering Provider: ALEJANDRO CARSON Report Released Date/Time: Feb 25, 2025 10:34 AM Reporting Lab: [address] [phone] Performing Lab: [facility] Dept of Pathology [facility] [phone] GCMS SCREEN,U/M comment Feb 25, 2025 11:21 AM [facility] TOX SCREEN ([facility]) URINE,RANDOM Specimen Type : URINE,RANDOM Comment: ~For Test: GCMS SCREEN,U/M ~amphetamine metabolites Ordering Provider: ALEJANDRO CARSON Report Released Date/Time: Feb 25, 2025 10:34 AM Reporting Lab: [address] [phone] Performing Lab: [address] [phone] BENZODIAZEPINES Not Detected Not Detecte d CANNABINOIDS,URINE [...] Not Detected Jan 28, 2025 09:08 AM [facility] GCMS SCREEN,U/M URINE,RANDOM Specimen Type: URINE,RANDOM Comment: ~For Test: GCMS SCREEN,U/M ~amphetamine metatolites Urine drug screen is POSITIVE. The following drugs were detected: Methamphetamine Amphetamine Gabapentin Nicotine Cotinine Caffeine Ordering Provider: ALEJANDRO CARSON Report Released Date/Time: Jan 28, 2025 08:56 AM Reporting Lab: [address] [phone] Performing Lab: [facility] Dept of Pathology [facility] [phone] GCMS SCREEN,U/M comment Jan 28, 2025 09:08 AM [facility] TOX SCREEN ([facility]) URINE,RANDOM Specimen Type : URINE,RANDOM Comment: ~For Test: GCMS SCREEN,U/M ~amphetamine metatolites Ordering Provider: ALEJANDRO CARSON Report Released Date/Time: Dec 31, 2024 02:54 PM Reporting Lab: [address] [phone] Performing Lab: [address] [address] BENZODIAZEPINES Not Detected Not Detecte d CANNABINOIDS,URINE [...] and tobacco- related health factors from the [place] facility where the Encounter took place. Current Smoking Status This section includes the most current smoking, or tobacco-related health factor, from the [place] facility where the Encounter took place. Date/Time Current Smoking Status Comment Facil ity Feb 07, 2025 08:30 AM VA-TOBACCO USE ELOISE RY DAY CIGARETTES [facility] Tobacco Use History This section includes a history of the smoking, or tobacco-related health factors, that were collected on or before the date of the Encounter. The data comes from the [place] facility where the Encounter took place. 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 [facility] 28, 2025 08:30 AM VA-TOBACCO USE ELOISE RY DAY CIGARETTES [facility] Feb 07, 2025 08:30 AM VA-TOBACCO USE MED NO [facility] Feb 07, 2023 11:00 AM VA-TOBACCO USE 30 YEARS OR MORE [facility] Feb 07, 2023 11:00 AM VA-TOBACCO USE ADVICE [facility] Feb 07, 2023 11:00 AM VA-TOBACCO USE SECRETARY BOOKKEEPER YES [facility] Feb 07, 2023 11:00 AM VA-TOBACCO USE MED NOTIFY PROVIDER [facility] Feb 07, 2023 11:00 AM VA-TOBACCO USE WI 30 MIN OF WAKEUP [facility] Feb 07, 2023 11:00 AM VA-TOBACCO USER EVERY DAY [facility] Feb 16, 2022 01:00 PM VA-TOBACCO USE 30 YEARS OR MORE [facility] Feb 16, 2022 01:00 PM VA-TOBACCO USE ADVICE [facility] Feb 16, 2022 01:00 PM VA-TOBACCO USE 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 NO [facility] Feb 16, 2022 01:00 PM VA-TOBACCO USE MED NO [facility] Feb 16, 2022 01:00 PM VA-TOBACCO USE WI 30 MIN OF WAKEUP [facility] Feb 16, 2022 01:00 PM VA-TOBACCO USER EVERY DAY [facility] Jun 21, 2020 04:12 AM CURRENT TOBACCO USER [facility] Jun 21, 2020 04:12 AM TOBACCO OFFERRED S TOP SMOKING CLINIC [facility] Jun 09, 2020 01:24 PM CURRENT TOBACCO USER [facility] Jun 09, 2020 01:24 PM TOBACCO OFFERRED S TOP SMOKING CLINIC [facility] Jul 24, 2019 01:11 PM VA-TOBACCO USE 30 YEARS OR MORE [facility] Jul 24, 2019 01:11 PM VA-TOBACCO USE ADVICE [facility] Jul 24, 2019 01:11 PM VA-TOBACCO USE SECRETARY 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 NO [facility] Jul 24, 2019 01:11 PM VA-TOBACCO USE MED NO [facility] Jul 24, 2019 01:11 PM VA-TOBACCO USE WI 30 MIN OF WAKEUP [facility] Jul 24, 2019 01:11 PM VA-TOBACCO USER EVERY DAY [facility] March 23, 2018 09:34 AM SMOKING CESSATION NO [facility] March 16, 2018 08:14 PM CURRENT TOBACCO USER [facility] March 16, 2018 08:14 PM SMOKER - OFFERRED MEDS (PROVIDER) [facility] March 16, 2018 08:14 PM TOBACCO OFFERRED S [facility] SMOKING CLINIC [facility] Advance Directives: All historical and current Section Date Range: From patient's date of to the date document was created. This section includes ALL of a patient's completed or amended [place] Advance and Rescinded Directives. The entries below indicate that a directive exists for the patient, but an actual copy is not included with this document. The data comes from all [place] facilities. Date Advance Directives Provider Source Nov 28, 2017 ADVANCE DIRECTIVE DISCUSSION JOSE ALEJANDRO BULLARD [facility] March 16, 2015 ADVANCE DIRECTIVE CASEY FELIX [facility] Jun 30, 2014 ADVANCE DIRECTIVE DISCUSSION IVONE TOLEDO [facility] Jan 21, 2003 ADVANCE DIRECTIVE DISCUSSION TJ MERCADO Jan 07, 2003 ADVANCE DIRECTIVE DISCUSSION SANCHEZ BROWN Encounter Notes: All associated encounter notes This section contains the clinical notes associated to the Encounter. Date/Time Encounter Note(s) Provider Source Apr 29, 2025 09:20 AM ACCOUNTING OF DISC LOSURES NOTE: LOCAL TITLE: STATE PRESCRIPTION DRUG MONITORING PROGRAM STANDARD TITLE: ACCOUNTING OF DISCLOSURES NOTE DATE OF NOTE: APR 29, 2025@09:20:54 ENTRY DATE: APR 29, 2025@09:20:54 AUTHOR: ALEJANDRO CARSON EXP COSIGNER: URGENCY: STATUS: COMPLETED This PDMP query was submitted by Alejandro Carson MD. The clinical justification for this PDMP query is to review controlled substances prescribed outside of the [place], and any additional information that may become available, as an important component of standard clinical care, and in accordance with [facility] policy. Patient information was shared with the PDMP [employer] [place]. No prescription(s) for controlled substances outside the [place] were found in the last 90 days. /aren/ ALEJANDRO CARSON MD Staff Physician, [facility] Signed: 04/29/2025 09:21 ALEJANDRO CARSON [facility] Apr 28, 2025 08:00 AM ACCOUNTING OF DISC LOSURES NOTE: LOCAL TITLE: STATE PRESCRIPTION DRUG MONITORING PROGRAM STANDARD TITLE: ACCOUNTING OF DISCLOSURES NOTE DATE OF NOTE: APR 28, 2025@08:00:34 ENTRY DATE: APR 28, 2025@08:00:34 AUTHOR: ALEJANDRO CARSON EXP COSIGNER: URGENCY: STATUS: COMPLETED This PDMP query was submitted by Alejandro Carson MD. The clinical justification for this PDMP query is to review controlled substances prescribed outside of the [place], and any additional information that may become available, as an important component of standard clinical care, and in accordance with [facility] policy. Patient information was shared with the PDMP [employer] [place]. No prescription(s) for controlled substances outside the [place] were found in the last 90 days. /aren/ ALEJANDRO CARSON MD Staff Physician, [facility] Signed: 04/28/2025 08:00 ALEJANDRO CARSON [facility] Feb 28, 2025 11:20 AM LETTERS: LOCAL TITLE: TEST RESULTS PATIENT LETTER (MAILED TO PATIENT) STANDARD TITLE: LETTERS DATE OF NOTE: FEB 28, 2025@11:20 ENTRY DATE: FEB 28, 2025@11:20:37 AUTHOR: ALEJANDRO CARSON EXP COSIGNER: URGENCY: STATUS: COMPLETED [facility] [address] [facility] [facility] [address] FEB 28, 2025 AARON OLIVAREZ [address] [place] [address] Dear Jeremi Aaron Cassandra : I would like to update you on your recent lab results: GCMS SCREEN,U/M URINE,RANDOM SP ~For Test: GCMS SCREEN,U/M ~amphetamine metabolites #[id number] Collection time: Feb 25, 2025@11:21 Test Name Result Units Range --------- ------ ----- ----- AMPHETAMINES DETECTED H Ref: Not Detected BARBITURATES Not Detected Ref: Not Detected BENZODIAZEPINES Not Detected Ref: Not Detected CANNABINOIDS,URINE Not Detected Ref: Not Detected COCAINE,URINE Not Detected Ref: Not Detected OPIATES,URINE Not Detected Ref: Not Detected URINE METHADONE Not Detected Ref: Not Detected URINE OXYCODONE Not Detected Ref: Not Detected CREATININE,VERIFY 209 mg/dL URINE BUPRENORHINE DETECTED H Ref: Not Detected URINE FENTANYL DETECTED H Ref: Not Detected Comments: Ordering Provider: Alejandro Carson MD Report Released Date/Time: Feb 25, 2025@12:16 Reporting Lab: [facility] [CLIA# [id number]] [address] [place] [phone] Performing Lab: [facility] [CLIA# [id number]] [address] [place] [phone] Collection time: Feb 25, 2025@11:21 Test Name Result Units Range --------- ------ ----- ----- GCMS SCREEN,U/M comment Comments: ~For Test: GCMS SCREEN,U/M ~amphetamine metabolites Urine drug screen is POSITIVE. The following drugs were detected: Gabapentin Methamphetamine Amphetamine Fentanyl Nicotine Cotinine Ordering Provider: Alejandro Carson MD Report Released Date/Time: Feb 26, 2025@09:32 Reporting Lab: [facility] [CLIA# [id number]] [address] [place] [phone] Performing Lab: [facility] [CLIA# [id number]] [facility] Dept of Pathology [address] [place] [address] [place] [address] Sincerely, ALEJANDRO CARSON MD Staff Physician, [facility] AARON OLIVAREZ MARC ALLEN [facility] Feb 25, 2025 11:33 AM PSYCHIATRY MEDICAT ION MGT NOTE: LOCAL TITLE: PSYCHIATRY MEDICATION STANDARD TITLE: PSYCHIATRY MEDICATION MGT NOTE DATE OF NOTE: FEB 25, 2025@11:33 ENTRY DATE: FEB 25, 2025@11:33:42 AUTHOR: ALEJANDRO CARSON EXP COSIGNER: URGENCY: STATUS: COMPLETED [facility] PHYSICIAN SUBOXONE MEDICATION REVIEW PATIENT IDENTIFYING DATA Name: AARON OLIVAREZ Social Security Number: [id number] Age: 64 Gender: MALE Date: FEB 25, 2025 Start/end time: [id number] DSM 5 DIAGNOSTIC IMPRESSION: Severe opioid use disorder, in sustained remission on maintenance therapy Methamphetamine use disorder INTERVENTIONS: - Medication managment - Psychoeducation INTERIM HISTORY: seen for [id number] visit. Reports no real changes this month. Continues to reside in [place], paying rent to an acquaintance, very frustrated that he is geographically isolated. Admits to ongoing methamphetamine use, last used yesterday, overall pattern for the month every few days. His access to this is through the acquaintance who he lives with. He also admits to some intermittent opiate use, last used opiates yesterday, by insufflation. Denies alcohol use, I cannot do that anymore it makes me sick . Denied other illicit drug use. He notes that the acquaintance he lives with is likely to go to half-way soon for outstanding warrants, his to appear before a county judge next week. He is hoping this may bring some stability to his current living environment. Audrey acknowledged that he missed his intake appointment for the [facility] residential program. He seems to have slightly more insight into the importance of maintaining contact with them. He is also aware of the many efforts they have made to engage him for residential treatment. This has not been successful because of difficulty contacting him to schedule admission. He reports he had a positive experience with the [facility] inpatient program in the past, felt that their process was potentially more amenable. It is geographically closer to him. I offered to place a consult to ask whether that would be an available option and he was interested in this. Audrey reports he has continued to take his Suboxone. Urine drug screen last month positive for Suboxone and for amphetamines, negative for evidence of ongoing opiate use. At this time I think continuing Suboxone is reasonable as a harm reduction intervention. Overall I think audrey would benefit from relocation and engagement with better social supports. This in the end will be up to him. He will complete a urine drug screen today. He will apple picker his refill. I have offered to see him for [id number] follow-up in 1 month on March 25. Acute Intoxication No Acute Withdrawal No Last UDS: See below UDS Collected today?: Yes Cravings:No Medication SE:Denies Substance Use: See above Desire to Titrate?: No If yes, then when: MENTAL STATUS EXAM: Speech: normal rate and rhythm Mood: dysphoric Affect: Irritable Thought process: No alterations SI: Not asked, no evidence of instability Insight: poor Judgment: fair Comments: MEDICATIONS: Active Outpatient Medications (including Supplies): Active Outpatient Medications Status 1) ALBUTEROL 90MCG (CFC-F) 200D ORAL INHL INHALE 2 PUFFS BY ACTIVE (S) INHALATION EVERY 4 HOURS NEEDED Indication: FOR SHORTNESS OF BREATH 2) AMLODIPINE BESYLATE 10MG TAB TAKE ONE TABLET BY MOUTH ONCE ACTIVE DAILY Indication: FOR BLOOD PRESSURE 3) BUPRENORPHINE 8MG/NALOXONE 2MG SL FILM DISSOLVE 1 FILM UNDER ACTIVE THE TONGUE THREE TIMES A DAY Indication: FOR OPIOID DEPENDENCE 4) GABAPENTIN 600MG TAB TAKE ONE TABLET BY MOUTH THREE TIMES A ACTIVE DAY Indication: FOR NERVE PAIN 5) LEVOTHYROXINE NA 150MCG TAB TAKE ONE TABLET BY MOUTH EVERY ACTIVE DAY IN THE MORNING Indication: FOR THYROID 6) NALOXONE HCL 4MG/SPRAY SOLN NASAL SPRAY INSTILL 1 SPRAY IN ACTIVE NOSE ONCE DO NOT PRIME OR TEST THE SPRAY DEVICE. GENTLY INSERT TIP INTO ONE NOSTRIL AND PRESS THE PLUNGER FIRMLY TO GIVE THE ENTIRE DOSE. USE EACH DEVICE ONLY ONCE. Indication: FOR SUSPECTED OPIOID OVERDOSE 7) PREDNISONE 20MG TAB TAKE TWO TABLETS BY MOUTH ONCE DAILY ACTIVE Indication: FOR INFLAMMATION 8) TAMSULOSIN HCL 0.4MG CAP TAKE ONE CAPSULE BY MOUTH EVERY ACTIVE EVENING (TAKE 30 MINUTES AFTER THE SAME MEAL EACH DAY) Indication: FOR PROSTATE LABS: Collection DT Specimen Test Name Result [...] Ref: Not Detected 01/28/2025 09:08 URINE CREATININE,VERIFY 358 mg/dL 12/31/2024 13:52 URINE CREATININE,VERIFY 28 mg/dL 10/29/2024 [...] requiring psychiatric pharmacotherapy. --Suboxone Refill: Refill for apple picker --Other medical/medication Issues: Consult to [facility] in [place] programs to assess whether can engage with their service. --RTC (F2F) 03-25-25@1030 /es/ ALEJANDRO CARSON MD Staff Physician, [facility] Signed: 02/25/2025 11:41 ALEJANDRO CARSON [facility]
--- OUTSIDE RECORDS SUMMARY | 2025-03-25 06:30 | XMS_ITS | Encounter Summary ---
Author Name [facility] [place] Organization [facility] ([place] Address [address] [place] [id number] Care Team Providers Care Reconciliation Coordinator Name Role Phone SEAN TRACY Primary [...] Lemon's Name Patient's Relationship to Policy Lemon [facility] ([facility]) MEDICARE ADVANTAGE [facility] ([facility]) March 13, 2017 [id number] HEDY OLIVAREZ PATIENT MEDICARE (WNR) MEDICARE (M) PART B March 13, 2014 PART B [id number] HEDY OLIVAREZ PATIENT MEDICARE (WNR) MEDICARE (M) PART B March 13, 2014 PART B [id number] HEDY OLIVAREZ PATIENT MEDICARE (WNR) MEDICARE (M) PART B March 13, 2014 PART B [id number] HEDY OLIVAREZ PATIENT MEDICARE (WNR) MEDICARE (M) PART B March 13, 2014 PART B [id number] HEDY OLIVAREZ PATIENT MEDICARE (WNR) MEDICARE (M) PART B March 13, 2014 PART B [id number] HEDY OLIVAREZ PATIENT MEDICARE (WNR) MEDICARE (M) PART B March 13, 2014 PART B [id number] HEDY OLIVAREZ PATIENT MEDICARE (WNR) MEDICARE (M) PART B March 13, 2014 PART B [id number] HEDY OLIVAREZ PATIENT MEDICARE (WNR) MEDICARE (M) PART B March 13, 2014 PART B [id number] HEDY OLIVAREZ PATIENT MEDICARE (WNR) MEDICARE (M) PART B March 13, 2014 PART B [id number] HEDY OLIVAREZ PATIENT MEDICARE (WNR) MEDICARE (M) PART B Jan 11, 2003 PART B [id number] HEDY OLIVAREZ PATIENT MEDICARE (WNR) MEDICARE (M) PART B Jan 11, 2003 PART B [id number] HEDY OLIVAREZ PATIENT MEDICARE (WNR) MEDICARE (M) PART B Jan 11, 2003 PART B [id number] HEDY OLIVAREZ PATIENT MEDICARE (WNR) MEDICARE (M) PART B Jan 11, 2003 PART B [id number] HEDY OLIVAREZ PATIENT MEDICARE (WNR) MEDICARE (M) PART A Nov 13, 2000 PART A [id number] HEDY OLIVAREZ PATIENT MEDICARE (WNR) MEDICARE (M) PART A Nov 13, 2000 PART A [id number] HEDY OLIVAREZ PATIENT MEDICARE (WNR) MEDICARE (M) PART A Nov 13, 2000 PART A [id number] HEDY OLIVAREZ PATIENT MEDICARE (WNR) MEDICARE (M) PART A Nov 13, 2000 PART A [id number] HEDY OLIVAREZ PATIENT MEDICARE (WNR) MEDICARE (M) PART A Jul 14, 1995 PART A [id number] HEDY OLIVAREZ PATIENT MEDICARE (WNR) MEDICARE (M) PART A Jul 14, 1995 PART A [id number] HEDY OLIVAREZ PATIENT MEDICARE (WNR) MEDICARE (M) PART A Jul 14, 1995 PART A [id number] HEDY OLIVAREZ PATIENT MEDICARE (WNR) MEDICARE (M) PART A Jul 14, 1995 PART A [id number] HEDY OLIVAREZ PATIENT MEDICARE (WNR) MEDICARE (M) PART A Jul 14, 1995 PART A [id number] HEDY OLIVAREZ PATIENT MEDICARE (WNR) MEDICARE (M) PART B Jul 14, 1995 PART B [id number] HEDY OLIVAREZ PATIENT MEDICARE (WNR) MEDICARE (M) PART B Jul 14, 1995 PART B [id number] HEDY OLIVAREZ PATIENT MEDICARE (WNR) MEDICARE (M) PART A Jul 14, 1995 PART A [id number] HEDY OLIVAREZ PATIENT MEDICARE (WNR) MEDICARE (M) PART A Jul 14, 1995 PART A [id number] HEDY OLIVAREZ PATIENT MEDICARE (WNR) MEDICARE (M) PART A Jul 14, 1995 PART A [id number] HEDY OLIVAREZ PATIENT MEDICARE (WNR) MEDICARE (M) PART A Jul 14, 1995 PART A [id number] HEDY OLIVAREZ PATIENT MEDICARE (WNR) MEDICARE (M) PART A Jul 14, 1995 PART A [id number] HEDY OLIVAREZ PATIENT MEDICARE (WNR) MEDICARE (M) PART A Jul 14, 1995 PART A [id number] HEDY OLIVAREZ PATIENT MEDICARE PART D (WNR) MEDICARE (M) PART D Oct 13, 2022 PART D [id number] HEDY OLIVAREZ PATIENT [facility] MCR (WNR) MEDICARE ADVANTAGE [facility] (WNR) Oct 13, 2022 [id number] HEDY OLIVAREZ PATIENT Selected Encounter This section includes the information on record at [place] for the Encounter. Date/Time Encounter Type Encounter Description Reason Provider Source March 25, 2025 10:30 AM OFFICE O/P EST MOD 30 MIN SUBSTANCE USE DISORDER IND ICD-10-CM F11.21 Opioid dependence, in remission ALEJANDRO CARSON [facility] Encounter Template Text not used by [place] Assessments - Encounter Diagnoses This section includes the primary and secondary diagnoses documented for the Encounter. Date/Time Primary/Secondary Diagnosis Diagnosis Name Provider Source March 25, 2025 10:57 AM PRIMARY Opioid dependence, in remission ALEJANDRO CARSON [facility] March 25, 2025 10:57 AM SECONDARY Other stimulant dependence, uncomplicated ALEJANDRO CARSON [facility] Plan of Treatment: Future Appointments (+ 6 months) and Future Tests (+/- 45 days) The Plan of Treatment section includes future care activities for the patient from all [place] [facility]. This section includes future appointments and future orders which are active, pending or scheduled. Future Appointments This section includes appointments that were scheduled to occur 6 months from the date of the Encounter, up to a maximum of 20 appointments. The data comes from all [facility] facilities. Appointment Date/Time Appointment Type Appointme nt Facility Name Apr 22, 2025 10:30 AM AMBULATORY - PSYCHIATRY [facility] Apr 23, 2025 02:00 PM AMBULATORY - PSYCHIATRY [facility] Apr 28, 2025 10:30 AM AMBULATORY - PSYCHIATRY [facility] Apr 29, 2025 09:30 AM AMBULATORY - PSYCHIATRY [facility] Apr 29, 2025 10:14 AM AMBULATORY - MEDICINE [facility] May 27, 2025 10:30 AM AMBULATORY - PSYCHIATRY [facility] Jun 24, 2025 10:30 AM AMBULATORY - PSYCHIATRY [facility] Active, Pending, and Scheduled Orders This section includes a listing of several types of active, pending, and scheduled orders, including clinic medications orders, diagnostic test orders, procedure orders and consult orders; where the start date of the order is 45 days before the date of the Encounter or 45 days after the date of theEncounter. The data comes from all [place] treatment facilities. Test Date/Time Test Type Test Details Facility Name Apr 29, 2025 01:00 PM Laboratory - Chemi stry Order C-REACTIVE PROTEIN SERUM BLOOD LC NOW [facility] Lab Results: +/- 30 days of the encounter This section includes the Chemistry and Hematology Lab Results on record with [place] for the patient. Radiology Reports and Pathology Reports are provided separately, in subsequent sections. Lab Results This section contains the Chemistry/Hematology Results that were resulted 30 days before or 30 daysafter the date of the Encounter. Date/Time Source Result Type Result - Unit Interpretation Reference Range Specimen Type Comment Feb 25, 2025 11:21 AM [facility] GCMS SCREEN,U/M URINE,RA NDOM Specimen Type: URINE,RANDOM Comment: ~For Test: GCMS SCREEN,U/M ~amphetamine metabolites Urine drug screen is POSITIVE. The following drugs were detected: Gabapentin Methamphetamine Amphetamine Fentanyl Nicotine Cotinine Ordering Provider: ALEJANDRO CARSON Report Released Date/Time: Feb 25, 2025 10:34 AM Reporting Lab: [address] [id number] Performing Lab: [facility] Dept of Pathology [facility] [id number] GCMS SCREEN,U/M comment Feb 25, 2025 11:21 AM [facility] TOX SCREEN ([facility]) URINE,RANDOM Specimen Type : URINE,RANDOM Comment: ~For Test: GCMS SCREEN,U/M ~amphetamine metabolites Ordering Provider: ALEJANDRO CARSON Report Released Date/Time: Feb 25, 2025 10:34 AM Reporting Lab: [address] [id number] Performing Lab: [address] [address] BENZODIAZEPINES Not Detected Not Detecte d CANNABINOIDS,URINE Not Detected Not Dete cted OPIATES,URINE Not Detected Not Detected AMPHETAMINES DETECTED H Not Detected BARBITURATES Not Detected Not Detected COCAINE,URINE Not Detected Not Detected CREATININE,VERIFY 209 mg/dL URINE METHADONE Not Detected Not Detecte d URINE OXYCODONE Not Detected Not Detecte d URINE BUPRENORHINE DETECTED H Not Detected URINE FENTANYL DETECTED H Not Detected Social History: Smoking Status (Most current) and Tobacco Use (All prior to encounter date) This section includes the most current, and the historical, smoking and tobacco- related health factors from the [place] facility where the Encounter took place. Current Smoking Status This section includes the most current smoking, or tobacco-related health factor, from the [place] facility where the Encounter took place. Date/Time Current Smoking Status Comment Facil ity Feb 07, 2025 08:30 AM VA-TOBACCO USE ELOISE RY DAY CIGARETTES [facility] Tobacco Use History This section includes a history of the smoking, or tobacco-related health factors, that were collected on or before the date of the Encounter. The data comes from the [place] facility where the Encounter took place. Date/Time Smoking Status/Tobacco Use Comment F acility Feb 07, 2025 08:30 AM VA-TOBACCO SCREEN FOLLOW-UP [facility] Feb 07, 2025 08:30 AM VA-TOBACCO USE ADVICE [facility] Feb 07, 2025 08:30 AM VA-TOBACCO USE LEATHER COATER NO [facility] Feb 07, 2025 08:30 AM VA-TOBACCO USE ELOISE RY DAY CIGARETTES [facility] Feb 07, 2025 08:30 AM VA-TOBACCO USE MED NO [facility] Feb 07, 2023 11:00 AM VA-TOBACCO USE 30 YEARS OR MORE [facility] Feb 07, 2023 11:00 AM VA-TOBACCO USE ADVICE [facility] Feb 07, 2023 11:00 AM VA-TOBACCO USE LEATHER COATER YES [facility] Feb 07, 2023 11:00 AM VA-TOBACCO USE MED NOTIFY PROVIDER [facility] Feb 07, 2023 11:00 AM VA-TOBACCO USE WI 30 MIN OF WAKEUP [facility] Feb 07, 2023 11:00 AM VA-TOBACCO USER EVERY DAY [facility] Feb 16, 2022 01:00 PM VA-TOBACCO USE 30 YEARS OR MORE [facility] Feb 16, 2022 01:00 PM VA-TOBACCO USE ADVICE [facility] Feb 16, 2022 01:00 PM VA-TOBACCO USE LEATHER COATER NO [facility] Feb 16, 2022 01:00 PM VA-TOBACCO USE MED NO [facility] Feb 16, 2022 01:00 PM VA-TOBACCO USE WI 30 MIN OF WAKEUP [facility] Feb 16, 2022 01:00 PM VA-TOBACCO USER EVERY DAY [facility] Jun 21, 2020 04:12 AM CURRENT TOBACCO USER [facility] Jun 21, 2020 04:12 AM TOBACCO OFFERRED S TOP SMOKING CLINIC [facility] Jun 09, 2020 01:24 PM CURRENT TOBACCO USER [facility] Jun 09, 2020 01:24 PM TOBACCO OFFERRED S TOP SMOKING CLINIC [facility] Jul 24, 2019 01:11 PM VA-TOBACCO USE 30 YEARS OR MORE [facility] Jul 24, 2019 01:11 PM VA-TOBACCO USE ADVICE [facility] Jul 24, 2019 01:11 PM VA-TOBACCO USE LEATHER COATER NO [facility] Jul 24, 2019 01:11 PM VA-TOBACCO USE MED NO [facility] Jul 24, 2019 01:11 PM VA-TOBACCO USE WI 30 MIN OF WAKEUP [facility] Jul 24, 2019 01:11 PM VA-TOBACCO USER EVERY DAY [facility] March 23, 2018 09:34 AM SMOKING CESSATION NO [facility] March 16, 2018 08:14 PM CURRENT TOBACCO USER [facility] March 16, 2018 08:14 PM SMOKER - OFFERRED MEDS (PROVIDER) [facility] March 16, 2018 08:14 PM TOBACCO OFFERRED S TOP SMOKING CLINIC [facility] Advance Directives: All historical and current Section Date Range: From patient's date of to the date document was created. This section includes ALL of a patient's completed or amended [place] Advance and Rescinded Directives. The entries below indicate that a directive exists for the patient, but an actual copy is not included with this document. The data comes from all [facility]. Date Advance Directives Provider Source Nov 28, 2017 ADVANCE DIRECTIVE DISCUSSION JOSE ALEJANDRO BULLARD [facility] March 16, 2015 ADVANCE DIRECTIVE CASEY FELIX COLT [facility] Jun 30, 2014 ADVANCE DIRECTIVE DISCUSSION IVONE TOLEDO COLT [facility] Jan 21, 2003 ADVANCE DIRECTIVE DISCUSSION TJ MERCADO Jan 07, 2003 ADVANCE DIRECTIVE DISCUSSION SANCHEZ BROWN Encounter Notes: All associated encounter notes This section contains the clinical notes associated to the Encounter. Date/Time Encounter Note(s) Provider Source Apr 22, 2025 10:06 AM ACCOUNTING OF DISC LOSURES NOTE: LOCAL TITLE: STATE PRESCRIPTION DRUG MONITORING PROGRAM STANDARD TITLE: ACCOUNTING OF DISCLOSURES NOTE DATE OF NOTE: APR 22, 2025@10:06:01 ENTRY DATE: APR 22, 2025@10:06:01 AUTHOR: ALEJANDRO CARSON EXP COSIGNER: URGENCY: STATUS: COMPLETED This PDMP query was submitted by Alejandro Carson MD. The clinical justification for this PDMP query is to review controlled substances prescribed outside of the [place], and any additional information that may become available, as an important component of standard clinical care, and in accordance with [facility] policy. Patient information was shared with the PDMP [place]. No prescription(s) for controlled substances outside the [facility] were found in the last 90 days. /aren/ ALEJANDRO CARSON MD Staff Physician, [facility] Signed: 04/22/2025 10:06 ALEJANDRO CARSON [facility] March 25, 2025 10:44 AM PSYCHIATRY MEDICAT ION MGT NOTE: LOCAL TITLE: PSYCHIATRY MEDICATION STANDARD TITLE: PSYCHIATRY MEDICATION MGT NOTE DATE OF NOTE: MARCH 25, 2025@10:44 ENTRY DATE: MARCH 25, 2025@10:44:58 AUTHOR: ALEJANDRO CARSON EXP COSIGNER: URGENCY: STATUS: COMPLETED SAC PHYSICIAN SUBOXONE MEDICATION REVIEW PATIENT IDENTIFYING DATA Name: AARON OLIVAREZ Social Security Number: [id number] Age: 64 Gender: MALE Date: MARCH 25, 2025 Start/end time: [id number] DSM 5 DIAGNOSTIC IMPRESSION: Severe opioid use disorder, in sustained remission on maintenance therapy INTERVENTIONS: - Medication managment - Psychoeducation INTERIM HISTORY: seen for [id number] visit. Appears a bit more frail today, intermittent cough which he relates to smoking too much . Admits to ongoing methamphetamine use, last was yesterday. Last fentanyl use also yesterday. Denies any alcohol use. His pattern of meth use seems to be 2-3 times per week, reports that meth comes to him . He is referring to people who visit the house that he currently occupies with a friend. Had 1 episode of fentanyl use by insufflation last week in which he developed acute withdrawal symptoms, and reports he continues to take his Suboxone. reports he was feeling quite ill this morning, however still made the effort to [facility] and [facility] our appointment. When I asked him about this, he stated I know I need help . He remains interested in attending a residential treatment which I do think would be helpful. He has had difficulty connecting to residential treatment referrals. He reports he is hesitant to answer his phone because of the incessant number of spam phone calls he receives. We discussed the potential of getting a different phone number which would facilitate communication. He reports he is out of money for the rest of the month, but would consider this when he next receives his disability payment. I do think audrey needs an escalated intensity of care for his ongoing substance use, and he is in agreement. I discussed the intensive outpatient program, however his transportation limits this option. I provided him with the phone number for the [facility] residential program, and encouraged him to reach out directly. He was accepted to their program in December, however his erratic communication did not lead to an admission. Similarly, I advised him that the [place] residential program did try to contact him last week, and has sent him a letter which may allow him to communicate with them directly to discuss options for treatment. Audrey does seem to have some insight into the ongoing negative impact of his substance use on his general welfare and physical health. He denied suicidal ideation today, endorsed frustration at ongoing use, does still think he could improve with further treatment. I think it is reasonable to continue Suboxone therapy for harm reduction, I will continue to support efforts to connect him with residential treatment which I do think would be effective for management of his ongoing substance use. He will complete a urine drug screen today. I have offered to see him for [id number] follow-up again in a month on April 22. Acute Intoxication No Acute Withdrawal No Last [...] ONCE. Indication: FOR SUSPECTED OPIOID OVERDOSE 7) TAMSULOSIN HCL 0.4MG CAP TAKE ONE CAPSULE BY MOUTH EVERY ACTIVE EVENING (TAKE 30 MINUTES AFTER THE SAME MEAL EACH DAY) Indication: FOR PROSTATE Pending Outpatient Medications Status 1) BUPRENORPHINE 8MG/NALOXONE 2MG SL FILM DISSOLVE 1 FILM UNDER PENDING THE TONGUE THREE TIMES A DAY Indication: FOR OPIOID DEPENDENCE 8 Total Medications LABS: Collection DT Specimen Test Name Result Units Ref Range 02/25/2025 11:21 URINE AMPHETAMINES DETECTED H Ref: Not Detected 01/28/2025 09:08 URINE AMPHETAMINES DETECTED H Ref: Not Detected 12/31/2024 13:52 URINE AMPHETAMINES Not Detected Ref: Not Detected 02/25/2025 11:21 URINE BENZODIAZEPINES Not Detected Ref: Not Detected 01/28/2025 09:08 URINE BENZODIAZEPINES Not Detected Ref: Not Detected 12/31/2024 13:52 URINE BENZODIAZEPINES Not Detected Ref: Not Detected 02/25/2025 11:21 URINE CANNABINOIDS,URINNot Detected Ref: Not Detected 01/28/2025 09:08 URINE CANNABINOIDS,URINNot Detected Ref: Not Detected 12/31/2024 13:52 URINE CANNABINOIDS,URINNot Detected Ref: Not Detected 02/25/2025 11:21 URINE URINE METHADONE Not Detected Ref: Not Detected 01/28/2025 09:08 URINE URINE METHADONE Not Detected Ref: Not Detected 12/31/2024 13:52 URINE URINE METHADONE Not Detected Ref: Not Detected 02/25/2025 11:21 URINE OPIATES,URINE Not Detected Ref: Not Detected 01/28/2025 09:08 URINE OPIATES,URINE Not Detected Ref: Not Detected 12/31/2024 13:52 URINE OPIATES,URINE Not Detected Ref: Not Detected 02/25/2025 11:21 URINE BARBITURATES Not Detected Ref: Not Detected 01/28/2025 09:08 URINE BARBITURATES Not Detected Ref: Not Detected 12/31/2024 13:52 URINE BARBITURATES Not Detected Ref: Not Detected 02/25/2025 11:21 URINE COCAINE,URINE Not Detected Ref: Not Detected 01/28/2025 09:08 URINE COCAINE,URINE Not Detected Ref: Not Detected 12/31/2024 13:52 URINE COCAINE,URINE Not Detected Ref: Not Detected 02/25/2025 11:21 URINE CREATININE,VERIFY 209 mg/dL 01/28/2025 09:08 URINE CREATININE,VERIFY 358 mg/dL 12/31/2024 13:52 URINE CREATININE,VERIFY 28 mg/dL Assessment/Summary: 64 yo male with severe OUD on agonist therapy (Suboxone) TREATMENT PLAN REVIEW/UPDATE: Hessel is engaged in opiate agonist therapy based on evidence based treatment guidelines and treatment plan. --PDMP Query: Done, no concerning Rx information --Naloxone Kit: UTD --Consulting Psychiatrist for Psychiatric Medication Management: No current psychiatric issues requiring psychiatric pharmacotherapy. 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 --RTC (F2F) 04-22-25@1030 /es/ ALEJANDRO CARSON MD Staff Physician, [facility] Signed: 03/25/2025 10:57 ALEJANDRO CARSON [facility]
--- OUTSIDE RECORDS SUMMARY | 2025-03-25 06:47 | XMS_ITS | Encounter Summary ---
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 Role Phone SEAN TRACY Primary [...] Lemon's Name Patient's Relationship to Policy Lemon [facility] (WN) MEDICARE ADVANTAGE [facility] ([facility]) March 13, 2017 [id number] HEDY OLIVAREZ PATIENT MEDICARE (WNR) MEDICARE (M) PART B March 13, 2014 PART B [id number] HEDY OLIVAREZ PATIENT MEDICARE (WNR) MEDICARE (M) PART B March 13, 2014 PART B [id number] HEDY OLIVAREZ PATIENT MEDICARE (WNR) MEDICARE (M) PART B March 13, 2014 PART B [id number] HEDY OLIVAREZ PATIENT MEDICARE (WNR) MEDICARE (M) PART B March 13, 2014 PART B [id number] HEDY OLIVAREZ PATIENT MEDICARE (WNR) MEDICARE (M) PART B March 13, 2014 PART B [id number] HEDY OLIVAREZ PATIENT MEDICARE (WNR) MEDICARE (M) PART B March 13, 2014 PART B [id number] HEDY OLIVAREZ PATIENT MEDICARE (WNR) MEDICARE (M) PART B March 13, 2014 PART B [id number] HEDY OLIVAREZ PATIENT MEDICARE (WNR) MEDICARE (M) PART B March 13, 2014 PART B [id number] HEDY OLIVAREZ PATIENT MEDICARE (WNR) MEDICARE (M) PART B March 13, 2014 PART B [id number] HEDY OLIVAREZ PATIENT MEDICARE (WNR) MEDICARE (M) PART B Jan 11, 2003 PART B [id number] HEDY OLIVAREZ PATIENT MEDICARE (WNR) MEDICARE (M) PART B Jan 11, 2003 PART B [id number] HEDY OLIVAREZ PATIENT MEDICARE (WNR) MEDICARE (M) PART B Jan 11, 2003 PART B [id number] HEDY OLIVAREZ PATIENT MEDICARE (WNR) MEDICARE (M) PART B Jan 11, 2003 PART B [id number] HEDY OLIVAREZ PATIENT MEDICARE (WNR) MEDICARE (M) PART A Nov 13, 2000 PART A [id number] HEDY OLIVAREZ PATIENT MEDICARE (WNR) MEDICARE (M) PART A Nov 13, 2000 PART A [id number] HEDY OLIVAREZ PATIENT MEDICARE (WNR) MEDICARE (M) PART A Nov 13, 2000 PART A [id number] HEDY OLIVAREZ PATIENT MEDICARE (WNR) MEDICARE (M) PART A Nov 13, 2000 PART A [id number] HEDY OLIVAREZ PATIENT MEDICARE (WNR) MEDICARE (M) PART A Jul 14, 1995 PART A [id number] HEDY OLIVAREZ PATIENT MEDICARE (WNR) MEDICARE (M) PART A Jul 14, 1995 PART A [id number] HEDY OLIVAREZ PATIENT MEDICARE (WNR) MEDICARE (M) PART A Jul 14, 1995 PART A [id number] HEDY OLIVAREZ PATIENT MEDICARE (WNR) MEDICARE (M) PART A Jul 14, 1995 PART A [id number] HEDY OLIVAREZ PATIENT MEDICARE (WNR) MEDICARE (M) PART A Jul 14, 1995 PART A [id number] HEDY OLIVAREZ PATIENT MEDICARE (WNR) MEDICARE (M) PART B Jul 14, 1995 PART B [id number] HEDY OLIVAREZ PATIENT MEDICARE (WNR) MEDICARE (M) PART B Jul 14, 1995 PART B [id number] HEDY OLVIAREZ PATIENT MEDICARE (WNR) MEDICARE (M) PART A Jul 14, 1995 PART A [id number] HEDY OLIVAREZ PATIENT MEDICARE (WNR) MEDICARE (M) PART A Jul 14, 1995 PART A [id number] HEDY OLIVAREZ PATIENT MEDICARE (WNR) MEDICARE (M) PART A Jul 14, 1995 PART A [id number] HEDY OLIVAREZ PATIENT MEDICARE (WNR) MEDICARE (M) PART A Jul 14, 1995 PART A [id number] HEDY OLIVAREZ PATIENT MEDICARE (WNR) MEDICARE (M) PART A Jul 14, 1995 PART A [id number] HEDY OLIVAREZ PATIENT MEDICARE (WNR) MEDICARE (M) PART A Jul 14, 1995 PART A [id number] HEDY OLIVAREZ PATIENT MEDICARE PART D (WNR) MEDICARE (M) PART D Oct 13, 2022 PART D [id number] HEDY OLIVAREZ PATIENT [facility] MCR (WNR) MEDICARE ADVANTAGE MCR (WNR) Oct 13, 2022 SARAH [id number] HEDY OLIVAREZ PATIENT Selected Encounter This section includes the information on record at [place] for the Encounter. 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 Date/Time Primary/Secondary Diagnosis Diagnosis Name Provider Source March 25, 2025 10:59 AM PRIMARY Other ch[facility] (current) drug therapy MICHAEL AMES [facility] Plan of Treatment: Future Appointments (+ 6 months) and Future Tests (+/- 45 days) The Plan of Treatment section includes future care activities for the patient from all [facility]. This section includes future appointments and future orders which are active, pending or scheduled. Future Appointments This section includes appointments that were scheduled to occur 6 months from the date of the Encounter, up to a maximum of 20 appointments. The data comes from all [facility] facilities. Appointment Date/Time Appointment Type Appointme nt Facility Name Apr 22, 2025 10:30 AM AMBULATORY - PSYCHIATRY [facility] Apr 23, 2025 02:00 PM AMBULATORY - PSYCHIATRY [facility] Apr 28, 2025 10:30 AM AMBULATORY - PSYCHIATRY [facility] Apr 29, 2025 09:30 AM AMBULATORY - PSYCHIATRY [facility] Apr 29, 2025 10:14 AM AMBULATORY - MEDICINE [facility] May 27, 2025 10:30 AM AMBULATORY - PSYCHIATRY [facility] Jun 24, 2025 10:30 AM AMBULATORY - PSYCHIATRY [facility] Active, Pending, and Scheduled Orders This [...] 29, 2025 01:00 PM Laboratory - Chemi blancay Order C-REACTIVE PROTEIN SERUM BLOOD LC NOW [facility] Lab Results: +/- 30 [...] Type Comment Feb 25, 2025 11:21 AM [facility] GCMS SCREEN,U/M URINE,RA NDOM Specimen Type: URINE,RANDOM Comment: ~For Test: GCMS SCREEN,U/M ~amphetamine metabolites Urine drug screen is POSITIVE. The following drugs were detected: Gabapentin Methamphetamine Amphetamine Fentanyl Nicotine Cotinine Ordering Provider: MARCIA CARTY Report Released Date/Time: Feb 25, 2025 10:34 AM Reporting Lab: [address] [address] Performing Lab: [facility] Dept of Pathology [facility] [id number] GCMS SCREEN,U/M comment Feb 25, 2025 11:21 AM [facility] TOX SCREEN ([facility]) URINE,RANDOM Specimen Type : URINE,RANDOM Comment: ~For Test: GCMS SCREEN,U/M ~amphetamine metabolites Ordering Provider: MARCIA CARTY Report Released Date/Time: Feb 25, 2025 10:34 AM Reporting Lab: [address] [address] Performing Lab: [address] [address] BENZODIAZEPINES Not Detected Not Detecte d CANNABINOIDS,URINE [...] Smoking Status Comment Rom ity Feb 07, 2025 08:30 AM VA-TOBACCO USE ELOISE RY DAY CIGARETTES [facility] Tobacco Use History This section includes a history of the smoking, or tobacco-related health factors, that were collected on or before the date of the Encounter. The data comes from the [place] facility where the Encounter took place. 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 [facility] Feb 07, 2025 08:30 AM VA-TOBACCO USE ELOISE RY DAY CIGARETTES [facility] Feb 07, 2025 08:30 AM VA-TOBACCO USE MED NO [facility] Feb 07, 2023 11:00 AM VA-TOBACCO USE 30 YEARS OR MORE [facility] Feb 07, 2023 11:00 AM VA-TOBACCO USE ADVICE [facility] Feb 07, 2023 11:00 AM VA-TOBACCO USE DEFENCE FORCE SENIOR OFFICER YES [facility] Feb 07, 2023 11:00 AM VA-TOBACCO USE MED NOTIFY PROVIDER [facility] Feb 07, 2023 11:00 AM VA-TOBACCO USE WI 30 MIN OF WAKEUP [facility] Feb 07, 2023 11:00 AM VA-TOBACCO USER EVERY DAY [facility] Feb 16, 2022 01:00 PM VA-TOBACCO USE 30 YEARS OR MORE [facility] Feb 16, 2022 01:00 PM VA-TOBACCO USE ADVICE [facility] Feb 16, 2022 01:00 PM 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 [facility] Feb 16, 2022 01:00 PM VA-TOBACCO USE MED NO [facility] Feb 16, 2022 01:00 PM VA-TOBACCO USE WI 30 MIN OF WAKEUP [facility] Feb 16, 2022 01:00 PM VA-TOBACCO USER EVERY DAY [facility] Jun 21, 2020 04:12 AM CURRENT TOBACCO USER [facility] Jun 21, 2020 04:12 AM TOBACCO OFFERRED S [facility] Jun 09, 2020 01:24 PM CURRENT TOBACCO USER [facility] Jun 09, 2020 01:24 PM TOBACCO OFFERRED S [facility] Jul 24, 2019 01:11 PM VA-TOBACCO USE 30 YEARS OR MORE [facility] Jul 24, 2019 01:11 PM VA-TOBACCO USE ADVICE [facility] Jul 24, 2019 01:11 PM 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 [facility] Jul 24, 2019 01:11 PM VA-TOBACCO USE MED NO [facility] Jul 24, 2019 01:11 PM VA-TOBACCO USE WI 30 MIN OF WAKEUP [facility] Jul 24, 2019 01:11 PM VA-TOBACCO USER EVERY DAY [facility] March 23, 2018 09:34 AM SMOKING CESSATION NO [facility] March 16, 2018 08:14 PM CURRENT TOBACCO USER [facility] March 16, 2018 08:14 PM SMOKER - OFFERRED MEDS (PROVIDER) [facility] March 16, 2018 08:14 PM TOBACCO OFFERRED S [facility] SMOKING CLINIC [facility] Advance Directives: All historical and current Section Date Range: From patient's date of to the date document was created. This section includes ALL of a patient's completed or amended [place] Advance and Rescinded Directives. The entries below indicate that a directive exists for the patient, but an actual copy is not included with this document. The data comes from all [facility]. Date Advance Directives Provider Source Nov 28, 2017 ADVANCE DIRECTIVE DISCUSSION JOSE ALEJANDRO BULLARD [facility] March 16, 2015 ADVANCE DIRECTIVE CASEY FELIX [facility] Jun 30, 2014 ADVANCE DIRECTIVE DISCUSSION IVONE [facility]OLEDO [facility] Jan 21, 2003 ADVANCE DIRECTIVE DISCUSSION TJ MERCADO Jan 07, 2003 ADVANCE DIRECTIVE DISCUSSION SANCHEZ BROWN
--- OUTSIDE RECORDS SUMMARY | 2025-04-22 06:30 | XMS_ITS | Encounter Summary ---
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 Name Role Phone SEAN TRACY Primary [...] Name Patient's Relationship to Policy Lemon [facility] (WN) MEDICARE ADVANTAGE [facility] ([facility]) March 13, 2017 [id number] HEDY OLIVAREZ PATIENT MEDICARE (WN) MEDICARE (M) PART B March 13, 2014 PART B [id number] HEDY OLIVAREZ PATIENT MEDICARE (WNR) MEDICARE (M) PART B March 13, 2014 PART B [id number] HEDY OLIVAREZ PATIENT MEDICARE (WN) MEDICARE (M) PART B March 13, 2014 PART B [id number] HEDY OLIVAREZ PATIENT MEDICARE (WNR) MEDICARE (M) PART B March 13, 2014 PART B [id number] HEDY OLIVAREZ PATIENT MEDICARE (WNR) MEDICARE (M) PART B March 13, 2014 PART B [id number] HEDY OLIVAREZ PATIENT MEDICARE (WNR) MEDICARE (M) PART B March 13, 2014 PART B [id number] HEDY OLIVAREZ PATIENT MEDICARE (WNR) MEDICARE (M) PART B March 13, 2014 PART B [id number] HEDY OLIVAREZ PATIENT MEDICARE (WNR) MEDICARE (M) PART B March 13, 2014 PART B [id number] HEDY OLIVAREZ PATIENT MEDICARE (WNR) MEDICARE (M) PART B March 13, 2014 PART B [id number] HEDY OLIVAREZ PATIENT MEDICARE (WNR) MEDICARE (M) PART B Jan 11, 2003 PART B [id number] HEDY OLIVAREZ PATIENT MEDICARE (WNR) MEDICARE (M) PART B Jan 11, 2003 PART B [id number] HEDY OLIVAREZ PATIENT MEDICARE (WNR) MEDICARE (M) PART B Jan 11, 2003 PART B [id number] HEDY OLIVAREZ PATIENT MEDICARE (WNR) MEDICARE (M) PART B Jan 11, 2003 PART B [id number] HEDY OLIVAREZ PATIENT MEDICARE (WNR) MEDICARE (M) PART A Nov 13, 2000 PART A [id number] HEDY OLIVAREZ PATIENT MEDICARE (WNR) MEDICARE (M) PART A Nov 13, 2000 PART A [id number] HEDY OLIVAREZ PATIENT MEDICARE (WNR) MEDICARE (M) PART A Nov 13, 2000 PART A [id number] HEDY OLIVAREZ PATIENT MEDICARE (WNR) MEDICARE (M) PART A Nov 13, 2000 PART A [id number] HEDY OLIVAREZ PATIENT MEDICARE (WNR) MEDICARE (M) PART A Jul 14, 1995 PART A [id number] HEDY OLIVAREZ PATIENT MEDICARE (WNR) MEDICARE (M) PART A Jul 14, 1995 PART A [id number] HEDY OLIVAREZ PATIENT MEDICARE (WNR) MEDICARE (M) PART A Jul 14, 1995 PART A [id number] HEDY OLIVAREZ PATIENT MEDICARE (WNR) MEDICARE (M) PART B Jul 14, 1995 PART B [id number] HEDY OLIVAREZ PATIENT MEDICARE (WNR) MEDICARE (M) PART B Jul 14, 1995 PART B [id number] HEDY OLIVAREZ PATIENT MEDICARE (WNR) MEDICARE (M) PART A Jul 14, 1995 PART A [id number] HEDY OLIVAREZ PATIENT MEDICARE (WNR) MEDICARE (M) PART A Jul 14, 1995 PART A [id number] HEDY OLIVAREZ PATIENT MEDICARE (WNR) MEDICARE (M) PART A Jul 14, 1995 PART A [id number] HEDY OLIVAREZ PATIENT MEDICARE (WNR) MEDICARE (M) PART A Jul 14, 1995 PART A [id number] HEDY OLIVAREZ PATIENT MEDICARE (WNR) MEDICARE (M) PART A Jul 14, 1995 PART A [id number] HEDY OLIVAREZ PATIENT MEDICARE (WNR) MEDICARE (M) PART A Jul 14, 1995 PART A [id number] HEDY OLIVAREZ PATIENT MEDICARE (WNR) MEDICARE (M) PART A Jul 14, 1995 PART A [id number] HEDY OLIVAREZ PATIENT MEDICARE (WNR) MEDICARE (M) PART A Jul 14, 1995 PART A [id number] HEDY OLIVAREZ PATIENT MEDICARE PART D (WNR) MEDICARE (M) PART D Oct 13, 2022 PART D [id number] HEDY OLIVAREZ PATIENT [facility] MCR (WNR) MEDICARE ADVANTAGE MCR (WNR) Oct 13, 2022 [id number] [phone] HEDY OLIVAREZ PATIENT Selected Encounter This section includes the information on record at [place] for the Encounter. Date/Time Encounter Type Encounter Description Reason Pro vider Source Apr 22, 2025 10:30 AM Outpatient Encounter SUBSTANCE USE DISORDER IND IHE Encounter Template Text not used by [place] Plan of Treatment: Future Appointments (+ 6 months) and Future Tests (+/- 45 days) The Plan of Treatment section includes future care activities for the patient from all [place] [facility] This section includes future appointments and future orders which are active, pending or scheduled. Future Appointments This section includes appointments that were scheduled to occur 6 months from the date of the Encounter, up to a maximum of 20 appointments. The data comes from all [facility]. Appointment Date/Time Appointment Type Appointme nt Facility Name Apr 23, 2025 02:00 PM AMBULATORY - PSYCHIATRY [facility] Apr 28, 2025 10:30 AM AMBULATORY - PSYCHIATRY [facility] Apr 29, 2025 09:30 AM AMBULATORY - PSYCHIATRY [facility] Apr 29, 2025 10:14 AM AMBULATORY - MEDICINE [facility] May 27, 2025 10:30 AM AMBULATORY - PSYCHIATRY [facility] Jun 24, 2025 10:30 AM AMBULATORY - PSYCHIATRY [facility] Active, Pending, and Scheduled Orders This section includes a listing of several types of active, pending, and scheduled orders, including clinic medications orders, diagnostic test orders, procedure orders and consult orders; where the start date of the order is 45 days before the date of the Encounter or 45 days after the date of theEncounter. The data comes from all [facility]. Test Date/Time Test Type Test Details Facility Name Apr 29, 2025 01:00 PM Laboratory - Chemi stry Order C-REACTIVE PROTEIN SERUM BLOOD LC NOW [facility] May 27, 2025 12:00 AM Laboratory - Chemi stry Order GCMS SCREEN,U/M URINE,RANDOM SP ~For Test: GCMS SCREEN,U/M ~amphetamine metabolites [facility] May 27, 2025 12:00 AM Laboratory - Chemi stry Order [facility] URINE,RANDOM SP [facility] May 27, 2025 12:00 AM Laboratory - Chemi stry Order ETHYL GLUCURONIDE,URINE ([facility]) URINE,RANDOM SP [facility] Lab Results: +/- 30 days of [...] Unit Interpretation Reference Range Specimen Type Comment Apr 29, 2025 08:55 AM [facility] TOX SCREEN ([facility]) URINE,RAN DOM Specimen Type: URINE,RANDOM No comment entered. Ordering Provider: MARCIA CARTY Report Released Date/Time: Apr 22, 2025 10:03 AM Reporting Lab: [address] [address] Performing Lab: [address] [address] BENZODIAZEPINES Not Detected Not Detecte d CANNABINOIDS,URINE Not Detected Not Dete cted OPIATES,URINE DETECTED H Not Detected AMPHETAMINES DETECTED H Not Detected BARBITURATES Not Detected Not Detected COCAINE,URINE Not Detected Not Detected CREATININE,VERIFY 96 mg/dL URINE METHADONE Not Detected Not Detecte [...] Facil ity Feb 07, 2025 08:30 AM MS-TOBACCO NEVER U SED OTHER TYPE [facility] Tobacco Use History This section includes a history of the smoking, or tobacco-related health factors, that were collected on or before the date of the Encounter. The data comes from the [place] facility where the Encounter took place. 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 [facility] Feb 07, 2025 08:30 AM VA-TOBACCO USE ELOISE RY DAY CIGARETTES [facility] Feb 07, 2025 08:30 AM VA-TOBACCO USE MED NO [facility] Feb 07, 2023 11:00 AM VA-TOBACCO USE 30 YEARS OR MORE [facility] Feb 07, 2023 11:00 AM VA-TOBACCO USE ADVICE [facility] Feb 07, 2023 11:00 AM VA-TOBACCO USE TEXTILE COLORIST FORMULATOR YES [facility] Feb 07, 2023 11:00 AM VA-TOBACCO USE MED NOTIFY PROVIDER [facility] Feb 07, 2023 11:00 AM VA-TOBACCO USE WI 30 MIN OF WAKEUP [facility] Feb 07, 2023 11:00 AM VA-TOBACCO USER EVERY DAY [facility] Feb 16, 2022 01:00 PM VA-TOBACCO USE 30 YEARS OR MORE [facility] Feb 16, 2022 01:00 PM VA-TOBACCO USE ADVICE [facility] Feb 16, 2022 01:00 PM VA-TOBACCO USE TEXTILE COLORIST FORMULATOR NO [facility] Feb 16, 2022 01:00 PM VA-TOBACCO USE MED NO [facility] Feb 16, 2022 01:00 PM VA-TOBACCO USE WI 30 MIN OF WAKEUP [facility] Feb 16, 2022 01:00 PM VA-TOBACCO USER EVERY DAY [facility] Jun 21, 2020 04:12 AM CURRENT TOBACCO USER [facility] Jun 21, 2020 04:12 AM TOBACCO OFFERRED S [facility] Jun 09, 2020 01:24 PM CURRENT TOBACCO USER [facility] Jun 09, 2020 01:24 PM TOBACCO OFFERRED S [facility] Jul 24, 2019 01:11 PM VA-TOBACCO USE 30 YEARS OR MORE [facility] Jul 24, 2019 01:11 PM VA-TOBACCO USE ADVICE [facility] Jul 24, 2019 01:11 PM VA-TOBACCO USE TEXTILE COLORIST FORMULATOR NO [facility] Jul 24, 2019 01:11 PM VA-TOBACCO USE MED NO [facility] Jul 24, 2019 01:11 PM VA-TOBACCO USE WI 30 MIN OF WAKEUP [facility] Jul 24, 2019 01:11 PM VA-TOBACCO USER EVERY DAY [facility] March 23, 2018 09:34 AM SMOKING CESSATION NO [facility] March 16, 2018 08:14 PM CURRENT TOBACCO USER [facility] March 16, 2018 08:14 PM [facility] March 16, 2018 08:14 PM [facility] Advance Directives: All historical and current Section Date Range: From patient's date of to the date document was created. This section includes ALL of a patient's completed or amended [place] Advance and Rescinded Directives. The entries below indicate that a directive exists for the patient, but an actual copy is not included with this document. The data comes from all [facility]. Date Advance Directives Provider Source Nov 28, 2017 ADVANCE DIRECTIVE DISCUSSION JOSE ALEJANDRO BULLARD [facility] March 16, 2015 ADVANCE DIRECTIVE CASEY FELIX [facility] Jun 30, 2014 ADVANCE DIRECTIVE DISCUSSION IVONE [facility]OL[facility] Jan 21, 2003 ADVANCE DIRECTIVE DISCUSSION TJ MERCADO Jan 07, 2003 ADVANCE DIRECTIVE DISCUSSION SANCHEZ BROWN Encounter Notes: All associated encounter notes This section contains the clinical notes associated to the Encounter. Date/Time Encounter Note(s) Provider Source Apr 22, 2025 01:09 PM NO SHOW NOTE: LOCAL TITLE: PSYCHIATRY NO SHOW - CANCEL - RESCHEDULE STANDARD TITLE: NO SHOW NOTE DATE OF NOTE: APR 22, 2025@13:09 ENTRY DATE: APR 22, 2025@13:09:23 AUTHOR: MARCIA CARTY EXP COSIGNER: URGENCY: STATUS: COMPLETED Note Title: PSYCHIATRY NO SHOW - CANCEL - RESCHEDULE No Show Reason for Cancellation: Per A Notice 2018-(2), For mental health appointments, (inclusive of consults, return to clinic orders, and failure to report (no-show)), the minimum scheduling effort for scheduling/rescheduling totals of four attempts; three documented contact attempts by telephone on separate days, followed by a letter. does NOT have a [facility], and did not attend scheduled appointment on Apr@10:30. was NOT reachable by phone with the following results: Called at listed phone number. No answer, mailbox full. Will await contact from to reschedule. /aren/ MARCIA CARTY MD Staff Physician, [facility] Signed: 04/22/2025 13:10 MARCIA CARTY [facility]
--- OUTSIDE RECORDS SUMMARY | 2025-04-29 05:30 | XMS_ITS | Encounter Summary ---
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 Role Phone ESAN TRACY Primary Care Provider UnavailLNIDA Krishna Unavailable Unavailable JEAN CLAUDE THAO Primary [...] to Policy Lemon [facility] ([facility]) MEDICARE ADVANTAGE [facility] ([facility]) March 13, 2017 [id number] HEDY TRUJILLO PATIENT MEDICARE (WNR) MEDICARE (M) PART B March 13, 2014 PART B [id number] HEDY TRUJILLO PATIENT MEDICARE (WNR) MEDICARE (M) PART B March 13, 2014 PART B [id number] HEDY TRUJILLO PATIENT MEDICARE (WNR) MEDICARE (M) PART B March 13, 2014 PART B [id number] HEDY TRUJILLO PATIENT MEDICARE (WNR) MEDICARE (M) PART B March 13, 2014 PART B [id number] HEDY TRUJILLO PATIENT MEDICARE (WNR) MEDICARE (M) PART B March 13, 2014 PART B [id number] HEDY TRUJILLO PATIENT MEDICARE (WNR) MEDICARE (M) PART B March 13, 2014 PART B [id number] HEDY TRUJILLO PATIENT MEDICARE (WNR) MEDICARE (M) PART B March 13, 2014 PART B [id number] HEDY TRUJILLO PATIENT MEDICARE (WNR) MEDICARE (M) PART B March 13, 2014 PART B [id number] HEDY TRUJILLO PATIENT MEDICARE (WNR) MEDICARE (M) PART B March 13, 2014 PART B [id number] HEDY TRUJILLO PATIENT MEDICARE (WNR) MEDICARE (M) PART B Jan 11, 2003 PART B [id number] HEDY TRUJILLO PATIENT MEDICARE (WNR) MEDICARE (M) PART B Jan 11, 2003 PART B [id number] HEDY TRUJILLO PATIENT MEDICARE (WNR) MEDICARE (M) PART B Jan 11, 2003 PART B [id number] HEDY TRUJILLO PATIENT MEDICARE (WNR) MEDICARE (M) PART B Jan 11, 2003 PART B [id number] HEDY TRUJILLO PATIENT MEDICARE (WNR) MEDICARE (M) PART A Nov 13, 2000 PART A [id number] HEDY TRUJILLO PATIENT MEDICARE (WNR) MEDICARE (M) PART A Nov 13, 2000 PART A [id number] HEDY TRJUILLO PATIENT MEDICARE (WNR) MEDICARE (M) PART A Nov 13, 2000 PART A [id number] HEDY TRUJILLO PATIENT MEDICARE (WNR) MEDICARE (M) PART A Nov 13, 2000 PART A [id number] HEDY TRUJILLO PATIENT MEDICARE (WNR) MEDICARE (M) PART A Jul 14, 1995 PART A [id number] HEDY TRUJILLO PATIENT MEDICARE (WNR) MEDICARE (M) PART A Jul 14, 1995 PART A [id number] HEDY RTUJILLO PATIENT MEDICARE (WNR) MEDICARE (M) PART A Jul 14, 1995 PART A [id number] HEDY TRUJILLO PATIENT MEDICARE (WNR) MEDICARE (M) PART A Jul 14, 1995 PART A [id number] HEDY TRUJILLO PATIENT MEDICARE (WNR) MEDICARE (M) PART A Jul 14, 1995 PART A [id number] HEDY TRUJILLO PATIENT MEDICARE (WNR) MEDICARE (M) PART B Jul 14, 1995 PART B [id number] HEDY TRUJILLO PATIENT MEDICARE (WNR) MEDICARE (M) PART B Jul 14, 1995 PART B [id number] HEDY TRUJILLO PATIENT MEDICARE (WNR) MEDICARE (M) PART A Jul 14, 1995 PART A [id number] HEDY TRUJILLO PATIENT MEDICARE (WNR) MEDICARE (M) PART A Jul 14, 1995 PART A [id number] HEDY TRUJILLO PATIENT MEDICARE (WNR) MEDICARE (M) PART A Jul 14, 1995 PART A [id number] HEDY TRUJILLO PATIENT MEDICARE (WNR) MEDICARE (M) PART A Jul 14, 1995 PART A [id number] HEDY TRUJILLO PATIENT MEDICARE (WNR) MEDICARE (M) PART A Jul 14, 1995 PART A [id number] HEDY TRUJILLO PATIENT MEDICARE (WNR) MEDICARE (M) PART A Jul 14, 1995 PART A [id number] HEDY TRUJILLO PATIENT MEDICARE PART D (WNR) MEDICARE (M) PART D Oct 13, 2022 PART D [id number] HEDY TRUJILLO PATIENT [facility] MCR (WNR) MEDICARE ADVANTAGE [facility] (WNR) Oct 13, 2022 [id number] HEDY TRUJILLO PATIENT Selected Encounter This section includes the information on record at [place] for the Encounter. Date/Time Encounter Type Encounter Description Reason Provider Source Apr 29, 2025 09:30 AM OFFICE O/P EST MOD 30 MIN SUBSTANCE USE DISORDER IND ICD-10-CM F11.21 Opioid dependence, in remission ALEJANDRO CARTY Scarlett Encounter Template Text not used by [place] Assessments - Encounter Diagnoses This section includes the primary and secondary diagnoses documented for the Encounter. Date/Time Primary/Secondary Diagnosis Diagnosis Name Provider Source Apr 29, 2025 10:06 AM PRIMARY Opioid dependence, in remission ALEJANDRO CARTY [facility] Apr 29, 2025 10:06 AM SECONDARY Oth stimulant use, unsp with unsp stimulant-induce d disorder ALEJANDRO CARTY [facility] Plan of Treatment: Future Appointments (+ 6 months) and Future Tests (+/- 45 days) The Plan of Treatment section includes future care activities for the patient from all [place] [facility]. This section includes future appointments and future orders which are active, pending or scheduled. Future Appointments This section includes appointments that were scheduled to occur 6 months from the date of the Encounter, up to a maximum of 20 appointments. The data comes from all [facility]. Appointment Date/Time Appointment Type Appointme nt Facility Name May 27, 2025 10:30 AM AMBULATORY - PSYCHIATRY [facility] Jun 24, 2025 10:30 AM AMBULATORY - PSYCHIATRY [facility] Active, Pending, and Scheduled Orders This section includes a listing of several types of active, pending, and scheduled orders, including clinic medications orders, diagnostic test orders, procedure orders and consult orders; where the start date of the order is 45 days before the date of the Encounter or 45 days after the date of theEncounter. The data comes from all [facility]. Test Date/Time Test Type Test Details Facility Name Apr 29, 2025 01:00 PM Laboratory - Chemi stry Order C-REACTIVE PROTEIN SERUM BLOOD LC [facility] May 27, 2025 12:00 AM Laboratory - Chemi stry Order GCMS SCREEN,U/M URINE,RANDOM SP ~For Test: GCMS SCREEN,U/M ~amphetamine metabolites [facility] May 27, 2025 12:00 AM Laboratory - Chemi stry Order TOX SCREEN ([facility]) URINE,RANDOM SP [facility] May 27, 2025 12:00 AM Laboratory - Chemi stry Order ETHYL GLUCURONIDE,URINE ([facility]) URINE,RANDOM SP [facility] Lab Results: +/- 30 days of the [...] Type Comment Apr 29, 2025 08:55 AM [facility] TOX SCREEN ([facility]) URINE,RAN DOM Specimen Type: URINE,RANDOM No comment entered. Ordering Provider: ALEJANDRO CARTY Report Released Date/Time: Apr 22, 2025 10:03 AM Reporting Lab: [address] [address] Performing Lab: [address] [address] BENZODIAZEPINES Not Detected Not Detecte d CANNABINOIDS,URINE [...] Pain Height Weight Body Mass Index Source Apr 29, 2025 10:22 AM 97.8 F 62 /min 203/98 mm[Hg] 18 /min [facility] Social History: Smoking Status (Most current) and [...] AM VA-TOBACCO USE ELOISE RY DAY CIGARETTES [facility] Tobacco Use History This section includes a history of the smoking, or tobacco-related health factors, that were collected on or before the date of the Encounter. The data comes from the [place] facility where the Encounter took place. 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 [facility] Feb 07, 2025 08:30 AM VA-TOBACCO USE ELOISE RY DAY CIGARETTES [facility] Feb 07, 2025 08:30 AM VA-TOBACCO USE MED NO [facility] Feb 07, 2023 11:00 AM VA-TOBACCO USE 30 YEARS OR MORE [facility] Feb 07, 2023 11:00 AM VA-TOBACCO USE ADVICE [facility] Feb 07, 2023 11:00 AM 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 [facility] Feb 07, 2023 11:00 AM VA-TOBACCO USE MED NOTIFY PROVIDER [facility] Feb 07, 2023 11:00 AM VA-TOBACCO USE WI 30 MIN OF WAKEUP [facility] Feb 07, 2023 11:00 AM VA-TOBACCO USER EVERY DAY [facility] Feb 16, 2022 01:00 PM VA-TOBACCO USE 30 YEARS OR MORE [facility] Feb 16, 2022 01:00 PM VA-TOBACCO USE ADVICE [facility] Feb 16, 2022 01:00 PM 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 [facility] Feb 16, 2022 01:00 PM VA-TOBACCO USE MED NO [facility] Feb 16, 2022 01:00 PM VA-TOBACCO USE WI 30 MIN OF WAKEUP [facility] Feb 16, 2022 01:00 PM VA-TOBACCO USER EVERY DAY [facility] Jun 21, 2020 04:12 AM CURRENT TOBACCO USER [facility] Jun 21, 2020 04:12 AM [facility] Jun 09, 2020 01:24 PM CURRENT TOBACCO USER [facility] Jun 09, 2020 01:24 PM TOBACCO OFFERRED S TOP S[facility] Jul 24, 2019 01:11 PM VA-TOBACCO USE 30 YEARS OR MORE [facility] Jul 24, 2019 01:11 PM VA-TOBACCO USE ADVICE [facility] 2001 Jul 24, 2019 01:11 PM 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 [facility] Jul 24, 2019 01:11 PM VA-TOBACCO USE MED NO [facility] 2001 Jul 24, 2019 01:11 PM VA-TOBACCO USE WI 30 MIN OF WAKEUP [facility] 2001 Jul 24, 2019 01:11 PM VA-TOBACCO USER EVERY DAY [facility] March 23, 2018 09:34 AM SMOKING CESSATION NO [facility] March 16, 2018 08:14 PM CURRENT TOBACCO USER [facility] March 16, 2018 08:14 PM SMOKER - OFFERRED MEDS (PROVIDER) [facility] March 16, 2018 08:14 PM TOBACCO OFFERRED S TOP [facility]INIC [facility] Advance Directives: All historical and current Section Date Range: From patient's date of to the date document was created. This section includes ALL of a patient's completed or amended [place] Advance and Rescinded Directives. The entries below indicate that a directive exists for the patient, but an actual copy is not included with this document. The data comes from all [facility]. Date Advance Directives Provider Source Nov 28, 2017 ADVANCE DIRECTIVE DISCUSSION JOSE ALEJANDRO BULLARD [facility] March 16, 2015 ADVANCE DIRECTIVE CASEY FELIX [facility] Jun 30, 2014 ADVANCE DIRECTIVE DISCUSSION IVONE TOLEDO [facility] Jan 21, 2003 ADVANCE DIRECTIVE DISCUSSION TJ MERCADO Jan 07, 2003 ADVANCE DIRECTIVE DISCUSSION SANCHEZ BROWN Encounter Notes: All associated encounter notes This section contains the clinical notes associated to the Encounter. Date/Time Encounter Note(s) Provider Source May 27, 2025 10:13 AM ACCOUNTING OF DISC LOSURES NOTE: LOCAL TITLE: STATE PRESCRIPTION DRUG MONITORING PROGRAM STANDARD TITLE: ACCOUNTING OF DISCLOSURES NOTE DATE OF NOTE: MAY 27, 2025@10:13:32 ENTRY DATE: MAY 27, 2025@10:13:32 AUTHOR: ALEJANDRO CARTY EXP COSIGNER: URGENCY: STATUS: [...] policy. [facility]. No prescription(s) for controlled substances outside the [facility] were found in the last 90 days. /aren/ ALEJANDRO CARTY MD Staff Physician, [facility] Signed: 05/27/2025 10:13 ALEJANDRO CARTY [facility] Apr 29, 2025 02:48 PM LETTERS: LOCAL TITLE: TEST RESULTS PATIENT LETTER (MAILED TO PATIENT) STANDARD TITLE: LETTERS DATE OF NOTE: APR 29, 2025@14:48 ENTRY DATE: APR 29, 2025@14:48:18 AUTHOR: ALEJANDRO CARTY EXP COSIGNER: URGENCY: STATUS: COMPLETED [address] [address] APR 29, 2025 AARON TRUJILLO [address] [place] [address] Dear Mr. Aaron Trujillo : I would like to update you on your recent lab results: TOX SCREEN ([facility]) URINE,RANDOM SP LB #[id number] Collection time: Apr 29, 2025@08:55 Test Name Result Units Range --------- ------ ----- ----- AMPHETAMINES DETECTED H Ref: Not Detected BARBITURATES Not Detected Ref: Not Detected BENZODIAZEPINES Not Detected Ref: Not Detected CANNABINOIDS,URINE Not Detected Ref: Not Detected COCAINE,URINE Not Detected Ref: Not Detected OPIATES,URINE DETECTED H Ref: Not Detected URINE METHADONE Not Detected Ref: Not Detected URINE OXYCODONE DETECTED H Ref: Not Detected CREATININE,VERIFY 96 mg/dL URINE BUPRENORHINE DETECTED H Ref: Not Detected URINE FENTANYL Not Detected Ref: Not Detected Comments: Ordering Provider: Alejandro Carty MD Report Released Date/Time: Apr 29, 2025@09:41 Reporting Lab: [facility] [CLIA# [id number]] [address] [place] [id number] Performing Lab: [facility] [CLIA# [id number]] [address] [place] [address] Sincerely, ALEJANDRO CARTY MD Staff Physician, [facility] JUANISAARON MONZON ALEJANDRO CARTY [facility] Apr 29, 2025 09:54 AM PSYCHIATRY MEDICAT ION MGT NOTE: LOCAL TITLE: PSYCHIATRY MEDICATION STANDARD TITLE: PSYCHIATRY MEDICATION MGT NOTE DATE OF NOTE: APR 29, 2025@09:54 ENTRY DATE: APR 29, 2025@09:54:40 AUTHOR: ALEJANDRO CARTY EXP COSIGNER: URGENCY: STATUS: COMPLETED [facility] PHYSICIAN SUBOXONE MEDICATION REVIEW PATIENT IDENTIFYING DATA Name: AARON TRUJILLO Social Security Number: [id number] Age: 64 Gender: MALE Date: APR 29, 2025 Start/end time: DSM 5 DIAGNOSTIC IMPRESSION: Severe opioid use disorder, in sustained remission on maintenance therapy Severe stimulant use disorder (methamphetamine) INTERVENTIONS: - Medication managment - Psychoeducation INTERIM HISTORY: [place] seen for ieat-wm-lcho visit. Transportation fell through yesterday, but was able to attend our scheduled appointment today. admits to ongoing methamphetamine use. He has noted some escalation in his use overall in the past month. Previously would use once every other day, now using most days, sometimes twice a day. He reports opiate use last yesterday, but notes that he did not notice any effect and attributes this to taking his Suboxone. Rare marijuana use, no alcohol use. Continues smoking too much , though articulated an interest in quitting as he does recognize its impact on his health. No acute mental health concerns. continues to be interested in engaging for residential treatment. I do think this would benefit him. He was referred to the [facility] 2 months ago as he has had some experience there in the past. Per their notes they did attempt to contact him, and sent him a letter when they were unable to contact him by phone. He reports he did receive the letter but did not call them back. I again discussed the [facility]. I was clear with my concerns that his challenges with phone contact have led to multiple referrals in the past. He reports he has made some changes to his phone program such that he feels he is more able to make and receive calls. He also stated [facility] is what I am interested in the most . He was last screened and accepted by them in December, though he admits that he did not attend because he was unable to get transportation. Audrey continues with intermittent methamphetamine use, some escalation. He continues to benefit from Suboxone therapy as it seems to have decreased his use of opiates. He is interested in quitting smoking and is aware that he would have to quit in order to attend the [facility]. With some reservations because of previous difficulty in establishing contact, I will place another consult to the [facility] asking them to attempt to contact him and screen him for potential admission. I stressed again the importance of keeping his scheduled appointments for their screening process. Audrey completed urine drug screen today. I will refill his Suboxone for this month. We will schedule a [id number] follow-up next in 1 month on May 27. In the course of our appointment, audrey pointed out the notable swelling of his left middle finger. He reports he was bit approximately 3 days ago by his dog, just proximal to the left middle finger metacarpal. There is significant swelling, no erythema. He does have some difficulty with flexion extension of his finger. This may be chronic. Because of potential risk of intra-articular infection, I do think he needs further evaluation. I have recommended he go to the emergency department for further evaluation of this. I discussed this with my partners. He reports he will comply. Acute Intoxication No Acute Withdrawal No Last [...] TAKE ONE TABLET BY MOUTH EVERY ACTIVE (S) DAY IN THE MORNING Indication: FOR THYROID [...] Specimen Test Name Result Units Ref Range 04/29/2025 08:55 URINE AMPHETAMINES DETECTED H Ref: Not Detected 02/25/2025 11:21 URINE AMPHETAMINES DETECTED H Ref: Not Detected 01/28/2025 09:08 URINE AMPHETAMINES DETECTED H Ref: Not Detected 04/29/2025 08:55 URINE BENZODIAZEPINES Not Detected Ref: Not Detected 02/25/2025 11:21 URINE BENZODIAZEPINES Not Detected Ref: Not Detected 01/28/2025 09:08 URINE BENZODIAZEPINES Not Detected Ref: Not Detected 04/29/2025 08:55 URINE CANNABINOIDS,URINNot Detected Ref: Not Detected 02/25/2025 11:21 URINE CANNABINOIDS,URINNot Detected Ref: Not Detected 01/28/2025 09:08 URINE CANNABINOIDS,URINNot Detected Ref: Not Detected 04/29/2025 08:55 URINE URINE METHADONE Not Detected Ref: Not Detected 02/25/2025 11:21 URINE URINE METHADONE Not Detected Ref: Not Detected 01/28/2025 09:08 URINE URINE METHADONE Not Detected Ref: Not Detected 04/29/2025 08:55 URINE OPIATES,URINE DETECTED H Ref: Not Detected 02/25/2025 11:21 URINE OPIATES,URINE Not Detected Ref: Not Detected 01/28/2025 09:08 URINE OPIATES,URINE Not Detected Ref: Not Detected 04/29/2025 08:55 URINE BARBITURATES Not Detected Ref: Not Detected 02/25/2025 11:21 URINE BARBITURATES Not Detected Ref: Not Detected 01/28/2025 09:08 URINE BARBITURATES Not Detected Ref: Not Detected 04/29/2025 08:55 URINE COCAINE,URINE Not Detected Ref: Not Detected 02/25/2025 11:21 URINE COCAINE,URINE Not Detected Ref: Not Detected 01/28/2025 09:08 URINE COCAINE,URINE Not Detected Ref: Not Detected 04/29/2025 08:55 URINE CREATININE,VERIFY 96 mg/dL 02/25/2025 11:21 URINE CREATININE,VERIFY 209 mg/dL 01/28/2025 09:08 URINE CREATININE,VERIFY 358 mg/dL Assessment/Summary: 64 yo male with severe OUD on agonist therapy (Suboxone) TREATMENT PLAN REVIEW/UPDATE: is engaged in opiate agonist therapy based on evidence based treatment guidelines and treatment plan. --PDMP Query: Done, no concerning Rx information --Naloxone Kit: UTD --Consulting Psychiatrist for Psychiatric Medication Management: No current psychiatric issues requiring psychiatric pharmacotherapy. 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 --RTC (F2F) 05-27-25@1030 /es/ ALEJANDRO CARTY MD Staff Physician, [facility] Signed: 04/29/2025 10:07 ALEJANDRO CARTY [facility]
--- OUTSIDE RECORDS SUMMARY | 2025-04-29 06:14 | XMS_ITS | Encounter Summary ---
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 Name Role Phone SEAN TRACY Primary Care [...] Lemon's Name Patient's Relationship to Policy Lemon [facility] ([facility]) MEDICARE ADVANTAGE [facility] ([facility]) March 13, 2017 [id number] HEDY OLIVAREZ PATIENT MEDICARE (WN) MEDICARE (M) PART B March 13, 2014 PART B [id number] HEDY OLIVAREZ PATIENT MEDICARE (WNR) MEDICARE (M) PART B March 13, 2014 PART B [id number] HEDY OLIVAREZ PATIENT MEDICARE (WN) MEDICARE (M) PART B March 13, 2014 PART B [id number] HEDY OLIVAREZ PATIENT MEDICARE (WNR) MEDICARE (M) PART B March 13, 2014 PART B [id number] HEDY OLIVAREZ PATIENT MEDICARE (WNR) MEDICARE (M) PART B March 13, 2014 PART B [id number] HEDY OLIVAREZ PATIENT MEDICARE (WNR) MEDICARE (M) PART B March 13, 2014 PART B [id number] HEDY OLIVAREZ PATIENT MEDICARE (WNR) MEDICARE (M) PART B March 13, 2014 PART B [id number] HEDY OLIVAREZ PATIENT MEDICARE (WNR) MEDICARE (M) PART B March 13, 2014 PART B [id number] HEDY OLIVAREZ PATIENT MEDICARE (WNR) MEDICARE (M) PART B March 13, 2014 PART B [id number] HEDY OLIVAREZ PATIENT MEDICARE (WNR) MEDICARE (M) PART B Jan 11, 2003 PART B [id number] HEDY OLIVAREZ PATIENT MEDICARE (WNR) MEDICARE (M) PART B Jan 11, 2003 PART B [id number] HEDY OLIVAREZ PATIENT MEDICARE (WNR) MEDICARE (M) PART B Jan 11, 2003 PART B [id number] HEDY OLIVAREZ PATIENT MEDICARE (WNR) MEDICARE (M) PART B Jan 11, 2003 PART B [id number] HEDY OLIVAREZ PATIENT MEDICARE (WNR) MEDICARE (M) PART A Nov 13, 2000 PART A [id number] HEDY OLIVAREZ PATIENT MEDICARE (WNR) MEDICARE (M) PART A Nov 13, 2000 PART A [id number] HEDY OLIVAREZ PATIENT MEDICARE (WNR) MEDICARE (M) PART A Nov 13, 2000 PART A [id number] HEDY OLIVAREZ PATIENT MEDICARE (WNR) MEDICARE (M) PART A Nov 13, 2000 PART A [id number] HEDY OLIVAREZ PATIENT MEDICARE (WNR) MEDICARE (M) PART A Jul 14, 1995 PART A [id number] HEDY OLIVAREZ PATIENT MEDICARE (WNR) MEDICARE (M) PART A Jul 14, 1995 PART A [id number] HEDY OLIVAREZ PATIENT MEDICARE (WNR) MEDICARE (M) PART A Jul 14, 1995 PART A [id number] HEDY OLIVAREZ PATIENT MEDICARE (WNR) MEDICARE (M) PART B Jul 14, 1995 PART B [id number] HEDY OLIVAREZ PATIENT MEDICARE (WNR) MEDICARE (M) PART B Jul 14, 1995 PART B [id number] HEDY OLIVAREZ PATIENT MEDICARE (WNR) MEDICARE (M) PART A Jul 14, 1995 PART A [id number] HEDY OLIVAREZ PATIENT MEDICARE (WNR) MEDICARE (M) PART A Jul 14, 1995 PART A [id number] HEDY OLIVAREZ PATIENT MEDICARE (WNR) MEDICARE (M) PART A Jul 14, 1995 PART A [id number] HEDY OLIVAREZ PATIENT MEDICARE (WNR) MEDICARE (M) PART A Jul 14, 1995 PART A [id number] HEDY OLIVAREZ PATIENT MEDICARE (WNR) MEDICARE (M) PART A Jul 14, 1995 PART A [id number] HEDY OLIVAREZ PATIENT MEDICARE (WNR) MEDICARE (M) PART A Jul 14, 1995 PART A [id number] HEDY OLIVAREZ PATIENT MEDICARE (WNR) MEDICARE (M) PART A Jul 14, 1995 PART A [id number] HEDY OLIVAREZ PATIENT MEDICARE (WNR) MEDICARE (M) PART A Jul 14, 1995 PART A [id number] HEDY OLIVAREZ PATIENT MEDICARE PART D (WNR) MEDICARE (M) PART D Oct 13, 2022 PART D [id number] HEDY OLIVAREZ PATIENT [facility] MCR (WNR) MEDICARE ADVANTAGE MCR (WNR) Oct 13, 2022 SARAH [id number] HEDY OLIVAREZ PATIENT Selected Encounter This section includes the information on record at PA for the Encounter. Date/Time Encounter Type Encounter Description Reason Provider Source Apr 29, 2025 10:14 AM EMERGENCY DEPT VISIT MOD [facility] EMERGENCY DEPT ICD-10-CM L03.119 Cellulitis of unspecified part of limb FRAN HARE MD [facility] Encounter Template Text not used by PA Assessments - Encounter Diagnoses This section includes the primary and secondary diagnoses documented for the Encounter. Date/Time Primary/Secondary Diagnosis Diagnosis Name Provider Source Apr 29, 2025 11:42 AM PRIMARY Cellulitis of unspecified part of limb FRAN HARE MD [facility] Plan of Treatment: Future Appointments (+ 6 months) and Future Tests (+/- 45 days) The Plan of Treatment section includes future care activities for the patient [facility] This section includes future appointments and future orders which are active, pending or scheduled. Future Appointments This section includes appointments that were scheduled to occur 6 months from the date of the Encounter, up to a maximum of 20 appointments. The data comes from all [facility]. Appointment Date/Time Appointment Type Appointme nt Facility Name May 27, 2025 10:30 AM AMBULATORY - PSYCHIATRY [facility] Jun 24, 2025 10:30 AM AMBULATORY - PSYCHIATRY [facility] Active, Pending, and Scheduled Orders This section includes a listing of several types of active, pending, and scheduled orders, including clinic medications orders, diagnostic test orders, procedure orders and consult orders; where the start date of the order is 45 days before the date of the Encounter or 45 days after the date of theEncounter. The data comes from all [facility]. Test Date/Time Test Type Test Details Facility Name Apr 29, 2025 01:00 PM Laboratory - Chemi stry Order C-REACTIVE PROTEIN SERUM BLOOD LC NOW [facility] May 27, 2025 12:00 AM Laboratory - Chemi stry Order GCMS SCREEN,U/M URINE,RANDOM SP ~For Test: GCMS SCREEN,U/M ~amphetamine metabolites [facility] May 27, 2025 12:00 AM Laboratory - Chemi stry Order TOX SCREEN ([facility]) URINE,RANDOM SP [facility] May 27, 2025 12:00 AM Laboratory - Chemi stry Order ETHYL GLUCURONIDE,URINE ([facility]) URINE,RANDOM SP [facility] Lab Results: +/- 30 days of the encounter This section includes the Chemistry and Hematology Lab Results on record with PA for the patient. Radiology Reports and Pathology Reports are provided separately, in subsequent sections. Lab Results This section contains the Chemistry/Hematology Results that were resulted 30 days before or 30 daysafter the date of the Encounter. Date/Time Source Result Type Result - Unit Interpretation Reference Range Specimen Type Comment Apr 29, 2025 08:55 AM [facility] TOX SCREEN ([facility]) URINE,RAN DOM Specimen Type: URINE,RANDOM No comment entered. Ordering Provider: MARCIA CARTY Report Released Date/Time: Apr 22, 2025 10:03 AM Reporting Lab: [place] [id number] Performing Lab: [place] [id number] BENZODIAZEPINES Not Detected Not Detecte d CANNABINOIDS,URINE [...] F 62 /min 203/98 mm[Hg] 18 /min [facility] Social History: Smoking Status (Most current) and Tobacco Use (All prior to encounter date) This section includes the most current, and the historical, smoking and tobacco- related health factors from the PA facility where the Encounter took place. Current Smoking Status This section includes the most current smoking, or tobacco-related health factor, from the PA facility where the Encounter took place. Date/Time Current Smoking Status Comment Facil ity Feb 07, 2025 08:30 AM VA-TOBACCO USE ELOISE RY DAY CIGARETTES [facility] Tobacco Use History This section includes a history of the smoking, or tobacco-related health factors, that were collected on or before the date of the Encounter. The data comes from the PA facility where the Encounter took place. Date/Time Smoking Status/Tobacco Use Comment F acility Feb 07, 2025 08:30 AM VA-TOBACCO SCREEN FOLLOW-UP [facility] Feb 07, 2025 08:30 AM VA-TOBACCO USE ADVICE [facility] Feb 07, 2025 08:30 AM VA-TOBACCO USE FORM LAYER NO [facility] Feb 07, 2025 08:30 AM VA-TOBACCO USE ELOISE RY DAY CIGARETTES [facility] Feb 07, 2025 08:30 AM VA-TOBACCO USE MED NO [facility] Feb 07, 2023 11:00 AM VA-TOBACCO USE 30 YEARS OR MORE [facility] Feb 07, 2023 11:00 AM VA-TOBACCO USE ADVICE [facility] Feb 07, 2023 11:00 AM VA-TOBACCO USE FORM LAYER YES [facility] Feb 07, 2023 11:00 AM VA-TOBACCO USE MED NOTIFY PROVIDER [facility] Feb 07, 2023 11:00 AM VA-TOBACCO USE WI 30 MIN OF WAKEUP [facility] Feb 07, 2023 11:00 AM VA-TOBACCO USER EVERY DAY [facility] Feb 16, 2022 01:00 PM VA-TOBACCO USE 30 YEARS OR MORE [facility] Feb 16, 2022 01:00 PM VA-TOBACCO USE ADVICE [facility] Feb 16, 2022 01:00 PM VA-TOBACCO USE FORM LAYER NO [facility] Feb 16, 2022 01:00 PM VA-TOBACCO USE MED NO [facility] Feb 16, 2022 01:00 PM VA-TOBACCO USE WI 30 MIN OF WAKEUP [facility] Feb 16, 2022 01:00 PM VA-TOBACCO USER EVERY DAY [facility] Jun 21, 2020 04:12 AM CURRENT TOBACCO USER [facility] Jun 21, 2020 04:12 AM TOBACCO OFFERRED S TOP SMOKING CLINIC [facility] Jun 09, 2020 01:24 PM CURRENT TOBACCO USER [facility] Jun 09, 2020 01:24 PM TOBACCO OFFERRED S [facility]MOKING CLINIC [facility] Jul 24, 2019 01:11 PM VA-TOBACCO USE 30 YEARS OR MORE [facility] Jul 24, 2019 01:11 PM VA-TOBACCO USE ADVICE [facility] Jul 24, 2019 01:11 PM VA-TOBACCO USE FORM LAYER NO [facility] Jul 24, 2019 01:11 PM VA-TOBACCO USE MED NO [facility] Jul 24, 2019 01:11 PM VA-TOBACCO USE WI 30 MIN OF WAKEUP [facility] Jul 24, 2019 01:11 PM VA-TOBACCO USER EVERY DAY [facility] March 23, 2018 09:34 AM SMOKING CESSATION NO [facility] March 16, 2018 08:14 PM CURRENT TOBACCO USER [facility] March 16, 2018 08:14 PM SMOKER - OFFERRED MEDS (PROVIDER) [facility] March 16, 2018 08:14 PM [facility] CLINIC [facility] Advance Directives: All historical and current Section Date Range: From patient's date of to the date document was created. This section includes ALL of a patient's completed or amended PA Advance and Rescinded Directives. The entries below indicate that a directive exists for the patient, but an actual copy is not included with this document. The data comes from all PA facilities. Date Advance Directives Provider Source Nov 28, 2017 ADVANCE DIRECTIVE DISCUSSION JOSE ALEJANDRO BULLARD [facility] March 16, 2015 ADVANCE DIRECTIVE CASEY FELIX [facility] Jun 30, 2014 ADVANCE DIRECTIVE DISCUSSION IVONE TOLEDO [facility] Jan 21, 2003 ADVANCE DIRECTIVE DISCUSSION TJ MERCADO Jan 07, 2003 ADVANCE DIRECTIVE DISCUSSION SANCHEZ BROWN Encounter Notes: All associated encounter notes This section contains the clinical notes associated to the Encounter. Date/Time Encounter Note(s) Provider Source Apr 30, 2025 10:27 AM ADDENDUM: LOCAL TITLE: Addendum STANDARD TITLE: ADDENDUM DATE OF NOTE: APR 30, 2025@10:27:49 ENTRY DATE: APR 30, 2025@10:27:50 AUTHOR: DAVIDA CRUM EXP COSIGNER: URGENCY: STATUS: COMPLETED Per my Lead, CHARITY Jacobs unable to send emails to patients. /aren/ DAVIDA Pantoja FADIPETEY LOPEZ// Signed: 04/30/2025 10:29 Receipt Acknowledged By: 05/02/2025 09:19 /es/ TAMAR SPANN Registered Nurse === --- Original Document --- 04/29/25 EMERGENCY DEPT: HPI:64 yo here for for dog bite. pt was trying to break up his dog fighting w/ another dog about 3-4 d ago and he accidentally bit him on the L hand. Dog has not had vaccines but dog behaving normally. He denies fevers, chills, night sweats. He was sent by [facility] and I expedited his evaluation as was told he may not stay. PAST MEDICAL HISTORY: - Substance Use Disorder (opioids, methamphetamine) - HTN - Hypothyroidism - Chronic low back pain - ?COPD PE: VSD - Last Set Vitals Date Vital Measurement Qualifiers 04/29/2025 10:22 Temp F (C) 97.8 (36.6) Pulse 62 Respir 18 BP 203/98 02/07/2025 08:10 Wt lbs (kg)[BMI] 164.46 (74.60)[22]Actual, Standing Weight Pain 8 POx (L/Min)(%) 93 06/05/2023 10:10 Ht in (cm) 73 (185.42) Stated alert,nad L #3 mcp swollen and slightly flexed, warm w/ pinkish hue multiple other digits in both hands w/ contractures Left prior to being able do further exam PLAN: L hand dog bite, c/f cellulitis vs fx vs septic arthtrits vs combination of above - Ordered Xrays, bcx x 2, labs, ESR/CRP, Tdap. Pt left stating he did not need any tests, xrays or further treatment. I will place c/s to hand clinic and see if RN can contact him to see if he would be willing to see hand clinic or return to ER. Active and Recently Outpatient Medications (including Supplies): Active Outpatient Medications Status === 1) ALBUTEROL 90MCG (CFC-F) 200D ORAL INHL INHALE 2 PUFFS BY ACTIVE INHALATION EVERY 4 HOURS NEEDED Indication: FOR SHORTNESS OF BREATH 2) AMLODIPINE BESYLATE 10MG TAB TAKE ONE TABLET BY MOUTH ONCE ACTIVE (S) DAILY Indication: FOR BLOOD PRESSURE 3) BUPRENORPHINE 8MG/NALOXONE 2MG SL FILM DISSOLVE 1 FILM UNDER ACTIVE THE TONGUE THREE TIMES A DAY Indication: FOR OPIOID DEPENDENCE 4) GABAPENTIN 600MG TAB TAKE ONE TABLET BY MOUTH THREE TIMES A ACTIVE (S) DAY Indication: FOR NERVE PAIN 5) LEVOTHYROXINE [...] TAKE ONE CAPSULE BY MOUTH EVERY ACTIVE (S) EVENING (TAKE 30 MINUTES AFTER THE SAME MEAL EACH DAY) Indication: FOR PROSTATE /aren/ JAGDEEP HARE MD Attending Physician, General Medicine Signed: 04/29/2025 11:51 Receipt Acknowledged By: 04/29/2025 12:04 /es/ MARCIA CARTY MD Staff Physician, [facility] 04/29/2025 15:49 /es/ TAMAR SPANN Registered Nurse 04/29/2025 ADDENDUM STATUS: COMPLETED RNCM attempted to call pt on tele # on file re following ER note below. A person by the name of Emy [phone] answered the phone and stated she found the phone on [address] in [facility]. RNCM attempted to call pt's Emergency contact tele # on file, but the person that answered denied knowing pt. RNCM mailed letter to pt and advised pt to call his phone/Emy. JOHN can you please email pt at: to explain above situation? PLAN: L hand dog bite, c/f cellulitis vs fx vs septic arthtrits vs combination of above - Ordered Xrays, bcx x 2, labs, ESR/CRP, Tdap. Pt left stating he did not need any tests, xrays or further treatment. I will place c/s to hand clinic and see if RN can contact him to see if he would be willing to see hand clinic or return to ER. /es/ TAMAR SPANN Registered Nurse Signed: 04/29/2025 15:41 Receipt Acknowledged By: * AWAITING SIGNATURE * LINDA ORTIZ * AWAITING SIGNATURE * SEAN TRACY MD 05/01/2025 09:50 /es/ JAGDEEP HARE MD Attending Physician, General Medicine 04/30/2025 10:27 /es/ DVAIDA CRUM MSA// 04/29/2025 15:52 /es/ MARCIA CARTY MD Staff Physician, [facility] 04/29/2025 ADDENDUM STATUS: COMPLETED Emy gave this RNCM permission to give pt Emy's tele # so pt can retrieve his phone. /es/ TAMAR SPANN Registered Nurse Signed: 04/29/2025 15:46 04/30/2025 ADDENDUM STATUS: COMPLETED Unable to reach Pt. Letter mailed yesterday to Pt by covering RNCM to get his phone returned to him. /es/ RULA GUZMAN Registered Nurse Signed: 04/30/2025 19:45 DAVIDA CRUM [facility] Apr 29, 2025 03:31 PM ADDENDUM: LOCAL TITLE: Addendum STANDARD TITLE: ADDENDUM DATE OF NOTE: APR 29, 2025@15:31:32 ENTRY DATE: APR 29, 2025@15:31:32 AUTHOR: TAMAR SPANN EXP COSIGNER: URGENCY: STATUS: COMPLETED RNCM attempted to call pt on tele # on file re following ER note below. A person by the name of Emy [phone] answered the phone and stated she found the phone on [address] in [facility]. RNCM attempted to call pt's Emergency contact tele # on file, but the person that answered denied knowing pt. RNCM mailed letter to pt and advised pt to call his phone/Emy. JOHN can you please email pt at: to explain above situation? PLAN: L hand dog bite, c/f cellulitis vs fx vs septic arthtrits vs combination of above - Ordered Xrays, bcx x 2, labs, ESR/CRP, Tdap. Pt left stating he did not need any tests, xrays or further treatment. I will place c/s to hand clinic and see if RN can contact him to see if he would be willing to see hand clinic or return to ER. /es/ TAMAR SPANN Registered Nurse Signed: 04/29/2025 15:41 Receipt Acknowledged By: 05/20/2025 16:38 /es/ Linda Ortiz Internal Medicine Resident 05/03/2025 23:06 /es/ SEAN TRACY MD Attending Physician, General Medicine 05/01/2025 09:50 /es/ JAGDEEP HARE MD Attending Physician, General Medicine 04/30/2025 10:27 /es/ DAVIDA CRUM [facility]// 04/29/2025 15:52 /es/ MARCIA CARTY MD Staff Physician, [facility] === --- Original Document --- 04/29/25 EMERGENCY DEPT: HPI:64 yo here for for dog bite. pt was trying to break up his dog fighting w/ another dog about 3-4 d ago and he accidentally bit him on the L hand. Dog has not had vaccines but dog behaving normally. He denies fevers, chills, night sweats. He was sent by [facility] and I expedited his evaluation as was told he may not stay. PAST MEDICAL HISTORY: - Substance Use Disorder (opioids, methamphetamine) - HTN - Hypothyroidism - Chronic low back pain - ?COPD PE: VSD - Last Set Vitals Date Vital Measurement Qualifiers 04/29/2025 10:22 Temp F (C) 97.8 (36.6) Pulse 62 Respir 18 BP 203/98 02/07/2025 08:10 Wt lbs (kg)[BMI] 164.46 (74.60)[22]Actual, Standing Weight Pain 8 POx (L/Min)(%) 93 06/05/2023 10:10 Ht in (cm) 73 (185.42) Stated alert,nad L #3 mcp swollen and slightly flexed, warm w/ pinkish hue multiple other digits in both hands w/ contractures Left prior to being able do further exam PLAN: L hand dog bite, c/f cellulitis vs fx vs septic arthtrits vs combination of above - Ordered Xrays, bcx x 2, labs, ESR/CRP, Tdap. Pt left stating he did not need any tests, xrays or further treatment. I will place c/s to hand clinic and see if RN can contact him to see if he would be willing to see hand clinic or return to ER. Active and Recently Outpatient Medications (including Supplies): Active Outpatient Medications Status === 1) ALBUTEROL 90MCG (CFC-F) 200D ORAL INHL INHALE 2 PUFFS BY ACTIVE INHALATION EVERY 4 HOURS NEEDED Indication: FOR SHORTNESS OF BREATH 2) AMLODIPINE BESYLATE 10MG TAB TAKE ONE TABLET BY MOUTH ONCE ACTIVE (S) DAILY Indication: FOR BLOOD PRESSURE 3) BUPRENORPHINE 8MG/NALOXONE 2MG SL FILM DISSOLVE 1 FILM UNDER ACTIVE THE TONGUE THREE TIMES A DAY Indication: FOR OPIOID DEPENDENCE 4) GABAPENTIN 600MG TAB TAKE ONE TABLET BY MOUTH THREE TIMES A ACTIVE (S) DAY Indication: FOR NERVE PAIN 5) LEVOTHYROXINE [...] TAKE ONE CAPSULE BY MOUTH EVERY ACTIVE (S) EVENING (TAKE 30 MINUTES AFTER THE SAME MEAL EACH DAY) Indication: FOR PROSTATE /aren/ JAGDEEP HARE MD Attending Physician, General Medicine Signed: 04/29/2025 11:51 Receipt Acknowledged By: 04/29/2025 12:04 /aren/ MARCIA CARTY MD Staff Physician, [facility] 04/29/2025 15:49 /aren/ TAMAR SPANN Registered Nurse 04/29/2025 ADDENDUM STATUS: COMPLETED Emy gave this RNCM permission to give pt Emy's tele # so pt can retrieve his phone. /aren/ TAMAR SPANN Registered Nurse Signed: 04/29/2025 15:46 04/30/2025 ADDENDUM STATUS: COMPLETED Per my Lead, CHARITY Jacobs unable to send emails to patients. /aren/ DAVIDA CRUM MSA// Signed: 04/30/2025 10:29 Receipt Acknowledged By: 05/02/2025 09:19 /aren/ TAMAR SAPNN Registered Nurse 04/30/2025 ADDENDUM STATUS: COMPLETED Unable to reach Pt. Letter mailed yesterday to Pt by covering RNCM to get his phone returned to him. /aren/ RULA GUZMAN Registered Nurse Signed: 04/30/2025 19:45 TAMAR SPANN [facility] Apr 29, 2025 10:44 AM EMERGENCY DEPT NOTE: LOCAL TITLE: EMERGENCY DEPT STANDARD TITLE: EMERGENCY DEPT NOTE DATE OF NOTE: APR 29, 2025@10:44 ENTRY DATE: APR 29, 2025@10:44:49 AUTHOR: JAGDEEP HARE COSIGNER: URGENCY: STATUS: COMPLETED EMERGENCY DEPT Has ADDENDA HPI:64 yo here for for dog bite. pt was trying to break up his dog fighting w/ another dog about 3-4 d ago and he accidentally bit him on the L hand. Dog has not had vaccines but dog behaving normally. He denies fevers, chills, night sweats. He was sent by [facility] and I expedited his evaluation as was told he may not stay. PAST MEDICAL HISTORY: - Substance Use Disorder (opioids, methamphetamine) - HTN - Hypothyroidism - Chronic low back pain - ?COPD PE: VSD - Last Set Vitals Date Vital Measurement Qualifiers 04/29/2025 10:22 Temp F (C) 97.8 (36.6) Pulse 62 Respir 18 BP 203/98 02/07/2025 08:10 Wt lbs (kg)[BMI] 164.46 (74.60)[22]Actual, Standing Weight Pain 8 POx (L/Min)(%) 93 06/05/2023 10:10 Ht in (cm) 73 (185.42) Stated alert,nad L #3 mcp swollen and slightly flexed, warm w/ pinkish hue multiple other digits in both hands w/ contractures Left prior to being able do further exam PLAN: L hand dog bite, c/f cellulitis vs fx vs septic arthtrits vs combination of above - Ordered Xrays, bcx x 2, labs, ESR/CRP, Tdap. Pt left stating he did not need any tests, xrays or further treatment. I will place c/s to hand clinic and see if RN can contact him to see if he would be willing to see hand clinic or return to ER. Active and Recently Outpatient Medications (including Supplies): Active Outpatient Medications Status === 1) ALBUTEROL 90MCG (CFC-F) 200D ORAL INHL INHALE 2 PUFFS BY ACTIVE INHALATION EVERY 4 HOURS NEEDED Indication: FOR SHORTNESS OF BREATH 2) AMLODIPINE BESYLATE 10MG TAB TAKE ONE TABLET BY MOUTH ONCE ACTIVE (S) DAILY Indication: FOR BLOOD PRESSURE 3) BUPRENORPHINE 8MG/NALOXONE 2MG SL FILM DISSOLVE 1 FILM UNDER ACTIVE THE TONGUE THREE TIMES A DAY Indication: FOR OPIOID DEPENDENCE 4) GABAPENTIN 600MG TAB TAKE ONE TABLET BY MOUTH THREE TIMES A ACTIVE (S) DAY Indication: FOR NERVE PAIN 5) LEVOTHYROXINE [...] TAKE ONE CAPSULE BY MOUTH EVERY ACTIVE (S) EVENING (TAKE 30 MINUTES AFTER THE SAME MEAL EACH DAY) Indication: FOR PROSTATE /aren/ JAGDEEP HARE MD Attending Physician, General Medicine Signed: 04/29/2025 11:51 Receipt Acknowledged By: 04/29/2025 12:04 /aren/ MARCIA CARTY MD Staff Physician, [facility] 04/29/2025 15:49 /aren/ TAMAR SPANN Registered Nurse 04/29/2025 ADDENDUM STATUS: COMPLETED RNCM attempted to call pt on tele # on file re following ER note below. A person by the name of Emy [phone] answered the phone and stated she found the phone on [address] in [facility]. RNCM attempted to call pt's Emergency contact tele # on file, but the person that answered denied knowing pt. RNCM mailed letter to pt and advised pt to call his phone/Emy. MSA can you please email pt at: [email or web address] to explain above situation? PLAN: L hand dog bite, c/f cellulitis vs fx vs septic arthtrits vs combination of above - Ordered Xrays, bcx x 2, labs, ESR/CRP, Tdap. Pt left stating he did not need any tests, xrays or further treatment. I will place c/s to hand clinic and see if RN can contact him to see if he would be willing to see hand clinic or return to ER. /aren/ TAMAR SPANN Registered Nurse Signed: 04/29/2025 15:41 Receipt Acknowledged By: * AWAITING SIGNATURE * LINDA ORTIZ * AWAITING SIGNATURE * SEAN TRACY MD * AWAITING SIGNATURE * JAGDEEP HARE MD 04/30/2025 10:27 /es/ DAVIDA CRUM MSA// * AWAITING SIGNATURE * HEDY OLIVEROS 04/29/2025 15:52 /es/ MARCIA CARTY MD Staff Physician, [facility] 04/29/2025 ADDENDUM STATUS: COMPLETED Emy gave this RNCM permission to give pt Emy's tele # so pt can retrieve his phone. /es/ TAMAR SPANN Registered Nurse Signed: 04/29/2025 15:46 04/30/2025 ADDENDUM STATUS: COMPLETED Per my Lead, CHARITY Jacobs unable to send emails to patients. /es/ DAVIDA CRUM MSA// Signed: 04/30/2025 10:29 Receipt Acknowledged By: * AWAITING SIGNATURE * TAMAR SPANN 04/30/2025 ADDENDUM STATUS: COMPLETED Unable to reach Pt. Letter mailed yesterday to Pt by covering RNCM to get his phone returned to him. 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 states it is his dog. Level of Consciousness (AVPU): Alert = Appears aware of and responsive to the environment on their own. Follows commands, opens eyes spontaneously, and tracks objects. Vital Signs: Temperature 97.8 F (36.6 C) Pulse 62 Respirations 18 Blood Pressure 203/98 Pulse Oximetry Pain: DVPRS Scale Location: [facility] Pain Rating Scale (DVPRS): 8 Awful, hard to do anything Patient's acceptable pain goal: Suicide Screen: [place] Suicide Severity Rating Scale (C-SSRS) screener 1. [...] Emergency Severity Index (SABINA) level: Level 4 Fall Risk Screen: Patient does not meet criteria to be considered as increased fall risk. Violence Risk Screen: Current Violence Risk Are you having current thoughts of violence? No Are you having current thoughts of homicide? No Actions taken: No action needed Exposure to Violence and Abuse Risk Pre-Screen: Are you worried for your safety, that you will be hurt or harmed? No Has anyone tried to force you to sign papers or use your money against your will? No Previously documented allergies: CODEINE Current Problems: DXLS/Procedures DXLS/Procedures First Reported Most Recent Date Resolved Past Medical History : Dec 2 May 3 March 4 Jun 5 Jan Past Surgical History : March Updated/Additional History : PROBLEM LIST ACTIVE 13 Active Problems PROBLEM LAST MOD PROVIDER Personal History of Alcoholism (ICD-9-CM V11.3) 03/31/2004 JOAO VALENTINEIA Low back pain (SNOMED CT 552027562) 02/07/2023 VERIA,RADHA V Polysubstance dependence (SNOMED CT 83532493) 06/12/2020 0 Lack of Housing (ICD-9-CM V60.0) 04/19/2004 JAMILMILDREDBOLA Depression (SNOMED CT 75727714) 01/18/2022 PETE DE LA TORRE Personality Disorder Nos 04/19/2004 BOLA NEGRON Hepatitis C 04/29/2004 SERGESUYAPA Chronic post-traumatic stress disorder 03/21/2018 MELISSA BROWN Hypertensive disorder 07/24/2019 KVNG BAGLEY Hypothyroidism 07/24/2019 KVNG BAGLEY Opioid dependence, on agonist therapy 11/04/2019 MARCIA CARTY Cocaine user 06/10/2020 VITALY MCKEON Homeless single person, Onset 01/11/2019 01/21/2022 SARI CORDERO PROBLEM LIST INACTIVE No data available /aren/ VAL BRASHER Signed: 04/29/2025 10:23 04/29/2025 ADDENDUM STATUS: COMPLETED upon telling pt we needed to draw bloodwork and get xrays pt stated he doesn't have time for this st and stated he was leaving. pt refused bloodwork and xrays. pt did not want to wait to talk to MD. /aren/ JULY ZURITA Signed: 04/29/2025 11:35 VAL BRASHER [facility]
--- OUTSIDE RECORDS SUMMARY | 2025-05-27 06:30 | XMS_ITS | Encounter Summary ---
Author Name [facility] Organization [facility] ([place] Address [address] [place] [address] Care Team Providers Care Rn Diabetes Name Role Phone SEAN TRACY Primary Care [...] Lemon's Name Patient's Relationship to Policy Lemon [facility] ([facility]) MEDICARE ADVANTAGE [facility] ([facility]) March 13, 2017 [id number] HEDY OLIVAREZ PATIENT MEDICARE (WNR) MEDICARE (M) PART B March 13, 2014 PART B [id number] HEDY OLIVAREZ PATIENT MEDICARE (WNR) MEDICARE (M) PART B March 13, 2014 PART B [id number] [id number] HEDY OLIVAREZ PATIENT MEDICARE (WNR) MEDICARE (M) PART B March 13, 2014 PART B [id number] HEDY OLIVAREZ PATIENT MEDICARE (WNR) MEDICARE (M) PART B March 13, 2014 PART B [id number] HEDY OLIVAREZ PATIENT MEDICARE (WNR) MEDICARE (M) PART B March 13, 2014 PART B [id number] HEDY OLIVAREZ PATIENT MEDICARE (WNR) MEDICARE (M) PART B March 13, 2014 PART B [id number] HEDY OLIVAREZ PATIENT MEDICARE (WNR) MEDICARE (M) PART B March 13, 2014 PART B [id number] HEDY OLIVAREZ PATIENT MEDICARE (WNR) MEDICARE (M) PART B March 13, 2014 PART B [id number] HEDY OLIVAREZ PATIENT MEDICARE (WNR) MEDICARE (M) PART B March 13, 2014 PART B [id number] HEDY OLIVAREZ PATIENT MEDICARE (WNR) MEDICARE (M) PART B Jan 11, 2003 PART B [id number] HEDY OLIVAREZ PATIENT MEDICARE (WNR) MEDICARE (M) PART B Jan 11, 2003 PART B [id number] HEDY OLIVAREZ PATIENT MEDICARE (WNR) MEDICARE (M) PART B Jan 11, 2003 PART B [id number] HEDY OLIVAREZ PATIENT MEDICARE (WNR) MEDICARE (M) PART B Jan 11, 2003 PART B [id number] HEDY OLIVAREZ PATIENT MEDICARE (WNR) MEDICARE (M) PART A Nov 13, 2000 PART A [id number] HEDY OLIVAREZ PATIENT MEDICARE (WNR) MEDICARE (M) PART A Nov 13, 2000 PART A [id number] HEDY OLIVAREZ PATIENT MEDICARE (WNR) MEDICARE (M) PART A Nov 13, 2000 PART A [id number] HEDY OLIVAREZ PATIENT MEDICARE (WNR) MEDICARE (M) PART A Nov 13, 2000 PART A [id number] HEDY OLIVAREZ PATIENT MEDICARE (WNR) MEDICARE (M) PART A Jul 14, 1995 PART A [id number] HEDY OLIVAREZ PATIENT MEDICARE (WNR) MEDICARE (M) PART A Jul 14, 1995 PART A [id number] HEDY OLIVAREZ PATIENT MEDICARE (WNR) MEDICARE (M) PART A Jul 14, 1995 PART A [id number] HEDY OLIVAREZ PATIENT MEDICARE (WNR) MEDICARE (M) PART A Jul 14, 1995 PART A [id number] HEDY OLIVAREZ PATIENT MEDICARE (WNR) MEDICARE (M) PART A Jul 14, 1995 PART A [id number] HEDY OLIVAREZ PATIENT MEDICARE (WNR) MEDICARE (M) PART B Jul 14, 1995 PART B [id number] HEDY OLIVAREZ PATIENT MEDICARE (WNR) MEDICARE (M) PART B Jul 14, 1995 PART B [id number] HEDY OLIVAREZ PATIENT MEDICARE (WNR) MEDICARE (M) PART A Jul 14, 1995 PART A [id number] HEDY OLIVAREZ PATIENT MEDICARE (WNR) MEDICARE (M) PART A Jul 14, 1995 PART A [id number] HEDY OLIVAREZ PATIENT MEDICARE (WNR) MEDICARE (M) PART A Jul 14, 1995 PART A [id number] HEDY OLIVAREZ PATIENT MEDICARE (WNR) MEDICARE (M) PART A Jul 14, 1995 PART A [id number] HEDY OLIVAREZ PATIENT MEDICARE (WNR) MEDICARE (M) PART A Jul 14, 1995 PART A [id number] HEDY OLIVAREZ PATIENT MEDICARE (WNR) MEDICARE (M) PART A Jul 14, 1995 PART A [id number] HEDY OLIVAREZ PATIENT MEDICARE PART D (WNR) MEDICARE (M) PART D Oct 13, 2022 PART D [id number] HEDY OLIVAREZ PATIENT [facility] MCR (WNR) MEDICARE ADVANTAGE [facility] (WNR) Oct 13, 2022 [id number] HEDY OLIVAREZ PATIENT Selected Encounter This section includes the information on record at [place] for the Encounter. Date/Time Encounter Type Encounter Description Reason Provider Source May 27, 2025 10:30 AM OFFICE O/P EST MOD 30 MIN SUBSTANCE USE DISORDER IND ICD-10-CM F11.21 Opioid dependence, in remission ALEJANDRO CARSON [facility] Encounter Template Text not used by [place] Assessments - Encounter Diagnoses This section includes the primary and secondary diagnoses documented for the Encounter. Date/Time Primary/Secondary Diagnosis Diagnosis Name Provider Source May 27, 2025 10:54 AM PRIMARY Opioid dependence, in remission ALEJANDRO CARSON [facility] May 27, 2025 10:54 AM SECONDARY Alcohol dependence, in remission ALEJANDRO CARSON [facility] May 27, 2025 10:54 AM SECONDARY Other stimulant dependence, uncomplicated [facility] Plan of Treatment: Future Appointments (+ 6 months) and Future Tests (+/- 45 days) The Plan of Treatment section includes future care activities for the patient from all [facility]. This section includes future appointments and future orders which are active, pending or scheduled. Future Appointments This section includes appointments that were scheduled to occur 6 months from the date of the Encounter, up to a maximum of 20 appointments. The data comes from all [facility]. Appointment Date/Time Appointment Type Appointme nt Facility Name Jun 24, 2025 10:30 AM AMBULATORY - PSYCHIATRY [facility] Jul 09, 2025 11:00 AM AMBULATORY - PSYCHIATRY [facility] Aug 05, 2025 01:30 PM AMBULATORY - PSYCHIATRY [facility] Active, Pending, and Scheduled Orders This section includes a listing of several types of active, pending, and scheduled orders, including clinic medications orders, diagnostic test orders, procedure orders and consult orders; where the start date of the order is 45 days before the date of the Encounter or 45 days after the date of theEncounter. The data comes from all [facility]. Test Date/Time Test Type Test Details Facility Name Apr 29, 2025 01:00 PM Laboratory - Chemi stry Order C-REACTIVE PROTEIN SERUM BLOOD LC NOW [facility] Jun 30, 2025 12:00 AM Laboratory - Chemi stry Order OCCULT BLOOD FIT X1 SCREEN (MFP ONLY) STOOL FECES SP ~Order entered per FIT testing campaign [facility] Lab Results: +/- 30 days of the encounter This section includes the Chemistry and Hematology Lab Results on record with [place] for the patient. Radiology Reports and Pathology Reports are provided separately, in subsequent sections. Lab Results This section contains the Chemistry/Hematology Results that were resulted 30 days before or 30 daysafter the date of the Encounter. Date/Time Source Result Type Result - Unit Interpretation Reference Range Specimen Type Comment Apr 29, 2025 08:55 AM [facility] TOX SCREEN ([facility]) URINE,RAN DOM Specimen Type: URINE,RANDOM No comment entered. Ordering Provider: ALEJANDRO CARSON Report Released Date/Time: Apr 22, 2025 10:03 AM Reporting Lab: [address] [address] Performing Lab: [place] [id number] BENZODIAZEPINES Not Detected Not Detecte d CANNABINOIDS,URINE [...] and tobacco- related health factors from the [place] facility where the Encounter took place. Current Smoking Status This section includes the most current smoking, or tobacco-related health factor, from the [place] facility where the Encounter took place. Date/Time Current Smoking Status Comment Rom ity Feb 07, 2025 08:30 AM VA-TOBACCO USE ELOISE RY DAY CIGARETTES [facility] Tobacco Use History This section includes a history of the smoking, or tobacco-related health factors, that were collected on or before the date of the Encounter. The data comes from the [place] facility where the Encounter took place. Date/Time Smoking Status/Tobacco Use Comment F acility Feb 07, 2025 08:30 AM VA-TOBACCO SCREEN FOLLOW-UP [facility] Feb 07, 2025 08:30 AM VA-TOBACCO USE ADVICE [facility] Feb 07, 2025 08:30 AM VA-TOBACCO USE PORTER LUGGAGE NO [facility] Feb 07, 2025 08:30 AM VA-TOBACCO USE ELOISE RY DAY CIGARETTES [facility] Feb 07, 2025 08:30 AM VA-TOBACCO USE MED NO [facility] Feb 07, 2023 11:00 AM VA-TOBACCO USE 30 YEARS OR MORE [facility] Feb 07, 2023 11:00 AM VA-TOBACCO USE ADVICE [facility] Feb 07, 2023 11:00 AM VA-TOBACCO USE PORTER LUGGAGE YES [facility] Feb 07, 2023 11:00 AM VA-TOBACCO USE MED NOTIFY PROVIDER [facility] Feb 07, 2023 11:00 AM VA-TOBACCO USE WI 30 MIN OF WAKEUP [facility] Feb 07, 2023 11:00 AM VA-TOBACCO USER EVERY DAY [facility] Feb 16, 2022 01:00 PM VA-TOBACCO USE 30 YEARS OR MORE [facility] Feb 16, 2022 01:00 PM VA-TOBACCO USE ADVICE [facility] Feb 16, 2022 01:00 PM VA-TOBACCO USE PORTER LUGGAGE NO [facility] Feb 16, 2022 01:00 PM VA-TOBACCO USE MED NO [facility] Feb 16, 2022 01:00 PM VA-TOBACCO USE WI 30 MIN OF WAKEUP [facility] Feb 16, 2022 01:00 PM VA-TOBACCO USER EVERY DAY [facility] Jun 21, 2020 04:12 AM CURRENT TOBACCO USER [facility] Jun 21, 2020 04:12 AM TOBACCO OFFERRED S TOP SMOKING CLINIC [facility] Jun 09, 2020 01:24 PM CURRENT TOBACCO USER [facility] Jun 09, 2020 01:24 PM TOBACCO OFFERRED S TOP SMOKING CLINIC [facility] Jul 24, 2019 01:11 PM VA-TOBACCO USE 30 YEARS OR MORE [facility] Jul 24, 2019 01:11 PM VA-TOBACCO USE ADVICE [facility] Jul 24, 2019 01:11 PM VA-TOBACCO USE PORTER LUGGAGE NO [facility] Jul 24, 2019 01:11 PM VA-TOBACCO USE MED NO [facility] Jul 24, 2019 01:11 PM VA-TOBACCO USE WI 30 MIN OF WAKEUP [facility] Jul 24, 2019 01:11 PM VA-TOBACCO USER EVERY DAY [facility] March 23, 2018 09:34 AM SMOKING CESSATION NO [facility] March 16, 2018 08:14 PM CURRENT TOBACCO USER [facility] March 16, 2018 08:14 PM SMOKER - OFFERRED MEDS (PROVIDER) [facility] March 16, 2018 08:14 PM TOBACCO OFFERRED [facility] SMOKING CLINIC [facility] Advance Directives: All historical and current Section Date Range: From patient's date of to the date document was created. This section includes ALL of a patient's completed or amended [place] Advance and Rescinded Directives. The entries below indicate that a directive exists for the patient, but an actual copy is not included with this document. The data comes from all [place] facilities. Date Advance Directives Provider Source Nov 28, 2017 ADVANCE DIRECTIVE DISCUSSION JOSE ALEJANDRO BULLARD [facility] March 16, 2015 ADVANCE DIRECTIVE CASEY FELIX [facility] Jun 30, 2014 ADVANCE DIRECTIVE DISCUSSION IVONE [facility] Jan 21, 2003 ADVANCE DIRECTIVE DISCUSSION TJ MERCADO Jan 07, 2003 ADVANCE DIRECTIVE DISCUSSION SANCHEZ BROWN Encounter Notes: All associated encounter notes This section contains the clinical notes associated to the Encounter. Date/Time Encounter Note(s) Provider Source Jun 24, 2025 01:47 PM ACCOUNTING OF DISC LOSURES NOTE: LOCAL TITLE: STATE PRESCRIPTION DRUG MONITORING PROGRAM STANDARD TITLE: ACCOUNTING OF DISCLOSURES NOTE DATE OF NOTE: JUN 24, 2025@13:47:12 ENTRY DATE: JUN 24, 2025@13:47:12 AUTHOR: ALEJANDRO CARSON EXP COSIGNER: URGENCY: STATUS: [...] information was shared with the PDMP Appriss [place]. No prescription(s) for controlled substances outside the [facility] were found in the last 90 days. /es/ ALEJANDRO CARSON MD Staff Physician, [facility] Signed: 06/24/2025 13:47 ALEJANDRO CARSON [facility] May 27, 2025 10:47 AM PSYCHIATRY MEDICAT ION MGT NOTE: LOCAL TITLE: PSYCHIATRY MEDICATION STANDARD TITLE: PSYCHIATRY MEDICATION MGT NOTE DATE OF NOTE: MAY 27, 2025@10:47 ENTRY DATE: MAY 27, 2025@10:47:18 AUTHOR: ALEJANDRO CARSON EXP COSIGNER: URGENCY: STATUS: COMPLETED [facility] PHYSICIAN SUBOXONE MEDICATION REVIEW PATIENT IDENTIFYING DATA Name: AARON OLIVAREZ Social Security Number: [id number] Age: 64 Gender: MALE Date: MAY 27, 2025 Start/end time: [id number] DSM 5 DIAGNOSTIC IMPRESSION: Severe opioid use disorder, in sustained remission on maintenance therapy Severe methamphetamine use disorder Severe alcohol use disorder, in remission INTERVENTIONS: - Medication managment - Psychoeducation INTERIM HISTORY: [place] seen for dsvj-na-tnst visit. Reports last methamphetamine use this month. Did take nonprescribed Vyvanse which was offered by a friend yesterday. Took this in hopes of gaining some energy and focus. Also denies any opiate use for the past month. No alcohol use either. He reports the isolated living situation he is in, mitigates much exposure to substances, and he does not venture out to seek methamphetamine. He describes his mood is up-and-down, mostly down , but denies suicidal ideation. No acute mental health concerns. has some insight into the current challenges that his living situation presents for him. He is quite isolated, with limited exposure to other people. He does seem to understand that he would benefit from making a change in his living situation that might provide better access to supports for recovery. I have encouraged him to consider going to the social work office today to see what resources they might provide to look into a change in housing. [place] had notable swelling of his hand after a dog bite at the time of our visit last month. He started an evaluation in the emergency department, but left because his ride was not willing to wait. Today he reports, fortunately, the swelling and redness in his hand has fully resolved. I shared information from the record which indicates that veterans phone was found on a road in his hometown, and has been turned over to local police authorities. He was appreciative of the information. [place] reports he does take his Suboxone. He does find it helpful to mitigate opiate cravings. He would like to continue at his current dose. He will complete a urine drug screen today. was amenable to rvta-gp-pdhg visit for our next follow-up on June 24. Acute Intoxication No Acute Withdrawal No Last UDS: See below UDS Collected today?: Yes Cravings:No Medication SE:Denies Substance Use: See above Desire to Titrate?: No If yes, then when: MENTAL STATUS EXAM: Speech: normal rate and rhythm Mood: dysphoric Affect: Depressed Thought process: No alterations SI: [...] requiring psychiatric pharmacotherapy. --Suboxone Refill: Refill for machine pecan picker --Other medical/medication Issues: N/A --RTC (F2F) 06-24-25@1030 /es/ ALEJANDRO CARSON MD Staff Physician, [facility] Signed: 05/27/2025 10:54 ALEJANDRO CARSON [facility]
--- OUTSIDE RECORDS SUMMARY | 2025-06-24 06:30 | XMS_ITS | Encounter Summary ---
Author Name [facility] ([place] Organization [facility] ([place]) Address [address] [place] [id number] Care Team Providers Care Telemarketing Representative Name Role Phone SEAN TRACY Primary Care [...] [facility] (WN) MEDICARE ADVANTAGE [facility]) March 13, 2017 [id number] HEDY OLIVAREZ PATIENT MEDICARE (WN) MEDICARE (M) PART B March 13, 2014 PART B [id number] HEDY OLIVAREZ PATIENT MEDICARE (WNR) MEDICARE (M) PART B March 13, 2014 PART B [id number] HEDY OLIVAREZ PATIENT MEDICARE (WN) MEDICARE (M) PART B March 13, 2014 PART B [id number] HEDY OLIVAREZ PATIENT MEDICARE (WNR) MEDICARE (M) PART B March 13, 2014 PART B [id number] HEDY OLIVAREZ PATIENT MEDICARE (WNR) MEDICARE (M) PART B March 13, 2014 PART B [id number] HEDY OLIVAERZ PATIENT MEDICARE (WNR) MEDICARE (M) PART B March 13, 2014 PART B [id number] HEDY OLIVAREZ PATIENT MEDICARE (WNR) MEDICARE (M) PART B March 13, 2014 PART B [id number] HEDY OLIVAREZ PATIENT MEDICARE (WNR) MEDICARE (M) PART B March 13, 2014 PART B [id number] HEDY OLIVAREZ PATIENT MEDICARE (WNR) MEDICARE (M) PART B March 13, 2014 PART B [id number] HEDY OLIVAREZ PATIENT MEDICARE (WNR) MEDICARE (M) PART B Jan 11, 2003 PART B [id number] HEDY OLIVAREZ PATIENT MEDICARE (WNR) MEDICARE (M) PART B Jan 11, 2003 PART B [id number] HEDY OLIVAREZ PATIENT MEDICARE (WNR) MEDICARE (M) PART B Jan 11, 2003 PART B [id number] HEDY OLIVAREZ PATIENT MEDICARE (WNR) MEDICARE (M) PART B Jan 11, 2003 PART B [id number] HEDY OLIVAREZ PATIENT MEDICARE (WNR) MEDICARE (M) PART A Nov 13, 2000 PART A [id number] HEDY OLIVAREZ PATIENT MEDICARE (WNR) MEDICARE (M) PART A Nov 13, 2000 PART A [id number] HEDY OLIVARZE PATIENT MEDICARE (WNR) MEDICARE (M) PART A Nov 13, 2000 PART A [id number] HEDY OLIVAREZ PATIENT MEDICARE (WNR) MEDICARE (M) PART A Nov 13, 2000 PART A [id number] HEDY OLIVAREZ PATIENT MEDICARE (WNR) MEDICARE (M) PART A Jul 14, 1995 PART A [id number] HEDY OLIVAREZ PATIENT MEDICARE (WNR) MEDICARE (M) PART A Jul 14, 1995 PART A [id number] HEDY OLIVAREZ PATIENT MEDICARE (WNR) MEDICARE (M) PART A Jul 14, 1995 PART A [id number] HEDY OLIVAREZ PATIENT MEDICARE (WNR) MEDICARE (M) PART A Jul 14, 1995 PART A [id number] HEDY OLIVAREZ PATIENT MEDICARE (WNR) MEDICARE (M) PART A Jul 14, 1995 PART A [id number] HEDY OLIVAREZ PATIENT MEDICARE (WNR) MEDICARE (M) PART B Jul 14, 1995 PART B [id number] HEDY OLIVAREZ PATIENT MEDICARE (WNR) MEDICARE (M) PART B Jul 14, 1995 PART B [id number] HEDY OLIVAREZ PATIENT MEDICARE (WNR) MEDICARE (M) PART A Jul 14, 1995 PART A [id number] HEDY OLIVAREZ PATIENT MEDICARE (WNR) MEDICARE (M) PART A Jul 14, 1995 PART A [id number] HEDY OLIVAREZ PATIENT MEDICARE (WNR) MEDICARE (M) PART A Jul 14, 1995 PART A [id number] HEDY OLIVAREZ PATIENT MEDICARE (WNR) MEDICARE (M) PART A Jul 14, 1995 PART A [id number] HEDY OLIVAREZ PATIENT MEDICARE (WNR) MEDICARE (M) PART A Jul 14, 1995 PART A [id number] HEDY OLIVAREZ PATIENT MEDICARE (WNR) MEDICARE (M) PART A Jul 14, 1995 PART A [id number] HEDY OLIVAREZ PATIENT MEDICARE PART D (WNR) MEDICARE (M) PART D Oct 13, 2022 PART D [id number] HEDY OLIVAREZ PATIENT [facility] MCR (WNR) MEDICARE ADVANTAGE MCR (WNR) Oct 13, 2022 SARAH [id number] [phone] HEDY OLIVAREZ PATIENT Selected Encounter This section includes the information on record at [place] for the Encounter. Date/Time Encounter Type Encounter Description Reason Pro vider Source Jun 24, 2025 10:30 AM Outpatient Encounter SUBSTANCE USE DISORDER IND IHE Encounter Template Text not used by [place] Plan of Treatment: Future Appointments (+ 6 months) and Future Tests (+/- 45 days) The Plan of Treatment section includes future care activities for the patient [facility] [place] [facility] This section includes future appointments and future orders which are active, pending or scheduled. Future Appointments This section includes appointments that were scheduled to occur 6 months from the date of the Encounter, up to a maximum of 20 appointments. The data comes from all [facility]. Appointment Date/Time Appointment Type Appointme nt Facility Name Jul 09, 2025 11:00 AM AMBULATORY - PSYCHIATRY [facility] Aug 05, 2025 01:30 PM AMBULATORY - PSYCHIATRY [facility] Active, [...] of theEncounter. The data comes from all [facility]. Test Date/Time Test Type Test Details Facility Name Jun 30, 2025 12:00 AM Laboratory - Chemi stry Order OCCULT BLOOD FIT X1 SCREEN (MFP ONLY) STOOL FECES SP ~Order entered per FIT testing campaign [facility] Lab Results: +/- 30 days of the encounter This section includes the Chemistry and Hematology Lab Results on record with [place] for the patient. Radiology Reports and Pathology Reports are provided separately, in subsequent sections. Lab Results This section contains the Chemistry/Hematology Results that were resulted 30 days before or 30 daysafter the date of the Encounter. Date/Time Source Result Type Result - Unit Interpretation Reference Range Specimen Type Comment Jul 09, 2025 01:33 PM [facility] GCMS SCREEN,U/M URINE,RA NDOM Specimen Type: URINE,RANDOM Comment: ~For Test: GCMS SCREEN,U/M ~amphetamine metabolites Ethyl glucuronide interpretation: Negative Urine drug screen is POSITIVE. The following drugs were detected: Amphetamine Methamphetamine Nicotine Cotinine Caffeine Gabapentin Ibuprofen Ordering Provider: MARCIA CARTY Report Released Date/Time: May 27, 2025 10:11 AM Reporting Lab: [address] [address] Performing Lab: [facility] Dept of Pathology [facility] [id number] GCMS SCREEN,U/M comment Jul 09, 2025 01:33 PM [facility] ETHYL GLUCURONIDE,URINE (M LABS) URINE,RANDOM Specim en Type: URINE,RANDOM Comment: ~For Test: GCMS SCREEN,U/M ~amphetamine metabolites Ethyl glucuronide interpretation: Negative Urine drug screen is POSITIVE. The following drugs were detected: Amphetamine Methamphetamine Nicotine Cotinine Caffeine Gabapentin Ibuprofen Ordering Provider: MARCIA CARTY Report Released Date/Time: May 27, 2025 10:11 AM Reporting Lab: [address] [id number] Performing Lab: [facility] Dept of Pathology [facility] [phone] ETHYL GLUCURONIDE,URINE (M LABS) <500 ng/mL 0-499 Jul 09, 2025 01:33 PM [facility] TOX SCREEN ([facility]) URINE,RANDOM Specimen Type : URINE,RANDOM Comment: ~For Test: GCMS SCREEN,U/M ~amphetamine metabolites Ordering Provider: MARCIA CARTY Report Released Date/Time: May 27, 2025 10:11 AM Reporting Lab: [address] [address] Performing Lab: [address] [id number] BENZODIAZEPINES Not Detected Not Detecte d CANNABINOIDS,URINE Not Detected Not Dete cted OPIATES,URINE Not Detected Not Detected AMPHETAMINES DETECTED H Not Detected BARBITURATES Not Detected Not Detected COCAINE,URINE DETECTED H Not Detected CREATININE,VERIFY 217 mg/dL URINE METHADONE Not Detected Not Detecte d URINE OXYCODONE Not Detected Not Detecte d URINE BUPRENORHINE DETECTED H Not Detected URINE FENTANYL Not Detected Not Detected Social History: Smoking Status (Most current) and Tobacco Use (All prior to encounter date) This section includes the most current, and the historical, smoking and tobacco- related health factors from the [place] facility where the Encounter took place. Current Smoking Status This section includes the most current smoking, or tobacco-related health factor, from the [place] facility where the Encounter took place. Date/Time Current Smoking Status Comment Rom ity Feb 07, 2025 08:30 AM VA-TOBACCO USE ELOISE RY DAY CIGARETTES [facility] Tobacco Use History This section includes a history of the smoking, or tobacco-related health factors, that were collected on or before the date of the Encounter. The data comes from the [place] facility where the Encounter took place. Date/Time Smoking Status/Tobacco Use Comment F acility Feb 07, 2025 08:30 AM VA-TOBACCO SCREEN FOLLOW-UP [facility] Feb 07, 2025 08:30 AM VA-TOBACCO USE ADVICE [facility] Feb 07, 2025 08:30 AM VA-TOBACCO USE ENGINEERING SURVEYOR NO [facility] Feb 07, 2025 08:30 AM VA-TOBACCO USE ELOISE RY DAY CIGARETTES [facility] Feb 07, 2025 08:30 AM VA-TOBACCO USE MED NO [facility] Feb 07, 2023 11:00 AM VA-TOBACCO USE 30 YEARS OR MORE [facility] Feb 07, 2023 11:00 AM VA-TOBACCO USE ADVICE [facility] Feb 07, 2023 11:00 AM VA-TOBACCO USE ENGINEERING SURVEYOR YES [facility] Feb 07, 2023 11:00 AM VA-TOBACCO USE MED NOTIFY PROVIDER [facility] Feb 07, 2023 11:00 AM VA-TOBACCO USE WI 30 MIN OF WAKEUP [facility] Feb 07, 2023 11:00 AM VA-TOBACCO USER EVERY DAY [facility] Feb 16, 2022 01:00 PM VA-TOBACCO USE 30 YEARS OR MORE [facility] Feb 16, 2022 01:00 PM VA-TOBACCO USE ADVICE [facility] Feb 16, 2022 01:00 PM VA-TOBACCO USE ENGINEERING SURVEYOR NO [facility] Feb 16, 2022 01:00 PM VA-TOBACCO USE MED NO [facility] Feb 16, 2022 01:00 PM VA-TOBACCO USE WI 30 MIN OF WAKEUP [facility] Feb 16, 2022 01:00 PM VA-TOBACCO USER EVERY DAY [facility] Jun 21, 2020 04:12 AM CURRENT TOBACCO USER [facility] Jun 21, 2020 04:12 AM TOBACCO OFFERRED S [facility] Jun 09, 2020 01:24 PM CURRENT TOBACCO USER [facility] Jun 09, 2020 01:24 PM TOBACCO OFFERRED S [facility] Jul 24, 2019 01:11 PM VA-TOBACCO USE 30 YEARS OR MORE [facility] Jul 24, 2019 01:11 PM VA-TOBACCO USE ADVICE [facility] Jul 24, 2019 01:11 PM VA-TOBACCO USE ENGINEERING SURVEYOR NO [facility] Jul 24, 2019 01:11 PM VA-TOBACCO USE MED NO [facility] Jul 24, 2019 01:11 PM VA-TOBACCO USE WI 30 MIN OF WAKEUP [facility] Jul 24, 2019 01:11 PM VA-TOBACCO USER EVERY DAY [facility] March 23, 2018 09:34 AM SMOKING CESSATION NO [facility] March 16, 2018 08:14 PM CURRENT TOBACCO USER [facility] March 16, 2018 08:14 PM SMOKER - OFFERRED MEDS (PROVIDER) [facility] March 16, 2018 08:14 PM TOBACCO OFFERRED S [facility] Advance Directives: All historical and current Section Date Range: From patient's date of to the date document was created. This section includes ALL of a patient's completed or amended [place] Advance and Rescinded Directives. The entries below indicate that a directive exists for the patient, but an actual copy is not included with this document. The data comes from all [facility]. Date Advance Directives Provider Source Nov 28, 2017 ADVANCE DIRECTIVE DISCUSSION JOSE ALEJANDRO BULLARD [facility] March 16, 2015 ADVANCE DIRECTIVE CASEY FELIX [facility] Jun 30, 2014 ADVANCE DIRECTIVE DISCUSSION IVONE TOL[facility]O [facility] Jan 21, 2003 ADVANCE DIRECTIVE DISCUSSION TJ MERCADO Jan 07, 2003 ADVANCE DIRECTIVE DISCUSSION SANCHEZ BROWN Encounter Notes: All associated encounter notes This section contains the clinical notes associated to the Encounter. Date/Time Encounter Note(s) Provider Source Jun 24, 2025 02:51 PM NO SHOW NOTE: LOCAL TITLE: PSYCHIATRY NO SHOW - CANCEL - RESCHEDULE STANDARD TITLE: NO SHOW NOTE DATE OF NOTE: JUN 24, 2025@14:51 ENTRY DATE: JUN 24, 2025@14:51:48 AUTHOR: MARCIA CARTY EXP COSIGNER: URGENCY: STATUS: COMPLETED Note Title: PSYCHIATRY NO SHOW - CANCEL - RESCHEDULE No Show Reason for Cancellation: Per [facility] Notice 2019-(2), For mental health appointments, (inclusive of consults, return to clinic orders, and failure to report (no-show)), the minimum scheduling effort for scheduling/rescheduling totals of four attempts; three documented contact attempts by telephone on separate days, followed by a letter. [place] does NOT have a HRS-PRF, and did not attend scheduled appointment on Jun@10:30. [place] was NOT reachable by phone with the following results: Called at listed phone number. Per the recorded message, calling restrictions preclude connection. [place] will also be called by clinic MSAs, letter will be sent if patient cannot be reached by phone /aren/ MARCIA CARTY MD Staff Physician, [facility] Signed: 06/24/2025 14:52 MARCIA CARTY [facility]
--- OUTSIDE RECORDS SUMMARY | 2025-07-09 07:00 | XMS_ITS | Encounter Summary ---
Author Name [facility] Organization [facility] ([place]) Address [address] [place] [id number] Care Team Providers Care Overlock Hemmer Name Role Phone SEAN TRACY Primary Care [...] HOSPITAL ([facility] (WN) MEDICARE ADVANTAGE [facility] ([facility]) March 13, 2017 [id number] [id number] HEDY TRUJILLO PATIENT MEDICARE (WNR) MEDICARE (M) PART B March 13, 2014 PART B [id number] HEDY TRUJILLO PATIENT MEDICARE (WNR) MEDICARE (M) PART B March 13, 2014 PART B [id number] [phone] HEDY TRUJILLO PATIENT MEDICARE (WNR) MEDICARE (M) PART B March 13, 2014 PART B [id number] HEDY TRUJILLO PATIENT MEDICARE (WNR) MEDICARE (M) PART B March 13, 2014 PART B [id number] HEDY TRUJILLO PATIENT MEDICARE (WNR) MEDICARE (M) PART B March 13, 2014 PART B [id number] HEDY TRUJILLO PATIENT MEDICARE (WNR) MEDICARE (M) PART B March 13, 2014 PART B [id number] HEDY TRUJILLO PATIENT MEDICARE (WNR) MEDICARE (M) PART B March 13, 2014 PART B [id number] HEDY TRUJILLO PATIENT MEDICARE (WNR) MEDICARE (M) PART B March 13, 2014 PART B [id number] HEDY TRUJILLO PATIENT MEDICARE (WNR) MEDICARE (M) PART B March 13, 2014 PART B [id number] HEDY TRUJILLO PATIENT MEDICARE (WNR) MEDICARE (M) PART B Jan 11, 2003 PART B [id number] HEDY TRUJILLO PATIENT MEDICARE (WNR) MEDICARE (M) PART B Jan 11, 2003 PART B [id number] HEDY TRUJILLO PATIENT MEDICARE (WNR) MEDICARE (M) PART B Jan 11, 2003 PART B [id number] HEDY TRUJILLO PATIENT MEDICARE (WNR) MEDICARE (M) PART B Jan 11, 2003 PART B [id number] HEDY TRUJILLO PATIENT MEDICARE (WNR) MEDICARE (M) PART A Nov 13, 2000 PART A [id number] HEDY TRUJILLO PATIENT MEDICARE (WNR) MEDICARE (M) PART A Nov 13, 2000 PART A [id number] HEDY TRUJILLO PATIENT MEDICARE (WNR) MEDICARE (M) PART A Nov 13, 2000 PART A [id number] HEDY TRUJILLO PATIENT MEDICARE (WNR) MEDICARE (M) PART A Nov 13, 2000 PART A [id number] HEDY TRUJILLO PATIENT MEDICARE (WNR) MEDICARE (M) PART A Jul 14, 1995 PART A [id number] HEDY TRUJILLO PATIENT MEDICARE (WNR) MEDICARE (M) PART A Jul 14, 1995 PART A [id number] HEDY TRUJILLO PATIENT MEDICARE (WNR) MEDICARE (M) PART A Jul 14, 1995 PART A [id number] HEDY TRUJILLO PATIENT MEDICARE (WNR) MEDICARE (M) PART A Jul 14, 1995 PART A [id number] HEDY TRUJILLO PATIENT MEDICARE (WNR) MEDICARE (M) PART A Jul 14, 1995 PART A [id number] HEDY TRUJILLO PATIENT MEDICARE (WNR) MEDICARE (M) PART B Jul 14, 1995 PART B [id number] HEDY TRUJILLO PATIENT MEDICARE (WNR) MEDICARE (M) PART B Jul 14, 1995 PART B [id number] HEDY TRUJILLO PATIENT MEDICARE (WNR) MEDICARE (M) PART A Jul 14, 1995 PART A [id number] HEDY TRUJILLO PATIENT MEDICARE (WNR) MEDICARE (M) PART A Jul 14, 1995 PART A [id number] HEDY TRUJILLO PATIENT MEDICARE (WNR) MEDICARE (M) PART A Jul 14, 1995 PART A [id number] HEDY TRUJILLO PATIENT MEDICARE (WNR) MEDICARE (M) PART A Jul 14, 1995 PART A [id number] HEDY TRUJILLO PATIENT MEDICARE (WNR) MEDICARE (M) PART A Jul 14, 1995 PART A [id number] HEDY TRUJILLO PATIENT MEDICARE (WNR) MEDICARE (M) PART A Jul 14, 1995 PART A [id number] HEDY TRUJILLO PATIENT MEDICARE PART D (WNR) MEDICARE (M) PART D Oct 13, 2022 PART D [id number] HEDY TRUJILLO PATIENT [facility] (WNR) MEDICARE ADVANTAGE MCR (WNR) Oct 13, 2022 [facility] [id number] HEDY TRUJILLO PATIENT Selected Encounter This section includes the information on record at CT for the Encounter. Date/Time Encounter Type Encounter Description Reason Provider Source Jul 09, 2025 11:00 AM CASE MANAGEMENT SUBSTANCE USE DISORDER IND ICD-10-CM F11.20 Opioid dependence, uncomplicated TODDGUDELIAD Bernice Oglesby I[facility] Encounter Template Text not used by CT Assessments - Encounter Diagnoses This section includes the primary and secondary diagnoses documented for the Encounter. Date/Time Primary/Secondary Diagnosis Diagnosis Name Provider Source Jul 09, 2025 01:52 PM PRIMARY Opioid dependence, uncomplicated TODDROCHELLE Oglesby [facility] Plan of Treatment: Future Appointments (+ 6 months) and Future Tests (+/- 45 days) The Plan of Treatment section includes future care activities for the [facility] This section includes future appointments and future orders which are active, pending or scheduled. Future Appointments This section includes appointments that were scheduled to occur 6 months from the date of the Encounter, up to a maximum of 20 appointments. The data comes from all CT treatment facilities. Appointment Date/Time Appointment Type Appointme nt Facility Name Aug 05, 2025 01:30 PM AMBULATORY - PSYCHIATRY [facility] Active, Pending, and Scheduled Orders This section includes a listing of several types of active, pending, and scheduled orders, including clinic medications orders, diagnostic test orders, procedure orders and consult orders; where the start date of the order is 45 days before the date of the Encounter or 45 days after the date of theEncounter. The data comes from all CT treatment [facility]. Test Date/Time Test Type Test Details Facility Name Jun 30, 2025 12:00 AM Laboratory - Chemi stry Order OCCULT BLOOD FIT X1 SCREEN (MFP ONLY) STOOL FECES SP ~Order entered per FIT testing campaign [facility] Lab Results: +/- 30 days of the encounter This section includes the Chemistry and Hematology Lab Results on record with CT for the patient. Radiology Reports and Pathology Reports are provided separately, in subsequent sections. Lab Results This section contains the Chemistry/Hematology Results that were resulted 30 days before or 30 daysafter the date of the Encounter. Date/Time Source Result Type Result - Unit Interpretation Reference Range Specimen Type Comment Jul 09, 2025 01:33 PM [facility] GCMS SCREEN,U/M URINE,RA NDOM Specimen Type: URINE,RANDOM Comment: ~For Test: GCMS SCREEN,U/M ~amphetamine metabolites Ethyl glucuronide interpretation: Negative Urine drug screen is POSITIVE. The following drugs were detected: Amphetamine Methamphetamine Nicotine Cotinine Caffeine Gabapentin Ibuprofen Ordering Provider: MARCIA CARTY Report Released Date/Time: May 27, 2025 10:11 AM Reporting Lab: [address] [phone] Performing Lab: [facility] Dept of Pathology [facility] [id number] GCMS SCREEN,U/M comment Jul 09, 2025 01:33 PM [facility] ETHYL GLUCURONIDE,URINE ([facility]) URINE,RANDOM Specim en Type: URINE,RANDOM Comment: ~For Test: GCMS SCREEN,U/M ~amphetamine metabolites Ethyl glucuronide interpretation: Negative Urine drug screen is POSITIVE. The following drugs were detected: Amphetamine Methamphetamine Nicotine Cotinine Caffeine Gabapentin Ibuprofen Ordering Provider: MARCIA CARTY Report Released Date/Time: May 27, 2025 10:11 AM Reporting Lab: [address] [phone] Performing Lab: [facility] Dept of Pathology [facility] [id number] ETHYL GLUCURONIDE,URINE ([facility]) <500 ng/mL 0-499 Jul 09, 2025 01:33 PM [facility] TOX SCREEN ([facility]) URINE,RANDOM Specimen Type : URINE,RANDOM Comment: ~For Test: GCMS SCREEN,U/M ~amphetamine metabolites Ordering Provider: MARCIA CATRY Report Released Date/Time: May 27, 2025 10:11 AM Reporting Lab: [address] [phone] Performing Lab: [address] [address] BENZODIAZEPINES Not Detected Not Detecte d CANNABINOIDS,URINE [...] and tobacco- related health factors from the CT facility where the Encounter took place. Current Smoking Status This section includes the most current smoking, or tobacco-related health factor, from the CT facility where the Encounter took place. Date/Time Current Smoking Status Comment Facil ity Feb 07, 2025 08:30 AM VA-TOBACCO USE ELOISE RY DAY CIGARETTES [facility] Tobacco Use History This section includes a history of the smoking, or tobacco-related health factors, that were collected on or before the date of the Encounter. The data comes from the CT facility where the Encounter took place. Date/Time Smoking Status/Tobacco Use Comment F acility Feb 07, 2025 08:30 AM VA-TOBACCO SCREEN FOLLOW-UP [facility] Feb 07, 2025 08:30 AM VA-TOBACCO USE ADVICE [facility] Feb 07, 2025 08:30 AM VA-TOBACCO USE FIELD TRAFFIC INVESTIGATOR NO [facility] Feb 07, 2025 08:30 AM VA-TOBACCO USE ELOISE RY DAY CIGARETTES [facility] Feb 07, 2025 08:30 AM VA-TOBACCO USE MED NO [facility] Feb 07, 2023 11:00 AM VA-TOBACCO USE 30 YEARS OR MORE [facility] Feb 07, 2023 11:00 AM VA-TOBACCO USE ADVICE [facility] Feb 07, 2023 11:00 AM VA-TOBACCO USE FIELD TRAFFIC INVESTIGATOR YES [facility] Feb 07, 2023 11:00 AM VA-TOBACCO USE MED NOTIFY PROVIDER [facility] Feb 07, 2023 11:00 AM VA-TOBACCO USE WI 30 MIN OF WAKEUP [facility] Feb 07, 2023 11:00 AM VA-TOBACCO USER EVERY DAY [facility] Feb 16, 2022 01:00 PM VA-TOBACCO USE 30 YEARS OR MORE [facility] Feb 16, 2022 01:00 PM VA-TOBACCO USE ADVICE [facility] Feb 16, 2022 01:00 PM VA-TOBACCO USE FIELD TRAFFIC INVESTIGATOR NO [facility] Feb 16, 2022 01:00 PM VA-TOBACCO USE MED NO [facility] Feb 16, 2022 01:00 PM VA-TOBACCO USE WI 30 MIN OF WAKEUP [facility] Feb 16, 2022 01:00 PM VA-TOBACCO USER EVERY DAY [facility] Jun 21, 2020 04:12 AM CURRENT TOBACCO USER [facility] Jun 21, 2020 04:12 AM TOBACCO OFFERRED S TOP SMOKING CLINIC [facility] Jun 09, 2020 01:24 PM CURRENT TOBACCO USER [facility] Jun 09, 2020 01:24 PM TOBACCO OFFERRED S TOP SMOKING CLINIC [facility] Jul 24, 2019 01:11 PM VA-TOBACCO USE 30 YEARS OR MORE [facility] Jul 24, 2019 01:11 PM VA-TOBACCO USE ADVICE [facility] Jul 24, 2019 01:11 PM VA-TOBACCO USE FIELD TRAFFIC INVESTIGATOR NO [facility] Jul 24, 2019 01:11 PM VA-TOBACCO USE MED NO [facility] Jul 24, 2019 01:11 PM VA-TOBACCO USE WI 30 MIN OF WAKEUP [facility] Jul 24, 2019 01:11 PM VA-TOBACCO USER EVERY DAY [facility] March 23, 2018 09:34 AM SMOKING CESSATION [facility] March 16, 2018 08:14 PM CURRENT TOBACCO USER [facility] March 16, 2018 08:14 PM SMOKER - OFFERRED MEDS (PROVIDER) [facility] March 16, 2018 08:14 PM TOBACCO OFFERRED S TOP SMOKING CLINIC [facility] Advance Directives: All historical and current Section Date Range: From patient's date of to the date document was created. This section includes ALL of a patient's completed or amended CT Advance and Rescinded Directives. The entries below indicate that a directive exists for the patient, but an actual copy is not included with this document. The data comes from all [facility]. Date Advance Directives Provider Source Nov 28, 2017 ADVANCE DIRECTIVE DISCUSSION JOSE ALEJANDRO [facility] March 16, 2015 ADVANCE DIRECTIVE CASEY FELIX [facility] Jun 30, 2014 ADVANCE DIRECTIVE DISCUSSION IVONE [facility] Jan 21, 2003 ADVANCE DIRECTIVE DISCUSSION TJ MERCADO Jan 07, 2003 ADVANCE DIRECTIVE DISCUSSION SANCHEZ BROWN Encounter Notes: All associated encounter notes This section contains the clinical notes associated to the Encounter. Date/Time Encounter Note(s) Provider Source Jul 09, 2025 01:00 PM PSYCHIATRY TRIAGE NOTE: LOCAL TITLE: PSYCHIATRY INTAKE - TRIAGE STANDARD TITLE: PSYCHIATRY TRIAGE NOTE DATE OF NOTE: JUL 09, 2025@13:00 ENTRY DATE: JUL 09, 2025@13:36:34 AUTHOR: ROCHELLE BROOKS COSIGNER: URGENCY: STATUS: COMPLETED Mental Health Nursing Triage SOAP Note SAME DAY [facility] ACCESS PATIENT IDENTIFYING DATA Name: AARON TRUJILLO SSN: [id number] Age: 64 Sex:MALE START DATE: Jun@13:00 END DATE: Jun@13:15 Setting: Amkl-[id number] Type of Encounter Face to face Call - Bradshaw consented and requested for follow up by phone. Reason for outreach: Triage Medication Spoke with Patient for 15 minutes. DETAILS OF PRESENTING PROBLEM: Medication Renewal presented as a walk-in requesting to be seen urgently. Todays visit completed via: F2F Bradshaw reports physical location for this visit is: [address] [place] [address] Local Emergency Number for that address: [id number], reports being in an area that will allow for the privacy of this visit. Yes Is there anyone else in the home? No MARIA-RN notified by MARIA MSA in message Bradshaw present to clinic requesting medication. aurelio Martinez- MARIA-RN contacted AARON TRUJILLO seeking medication renewal. Mr. Trujillo presented as a walk-in to the Substance Use Disorder ([facility]IA) clinic requesting a renewal of his Suboxone prescription from Dr. Carty. 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 O: Objective - Last appointment with Dr. Carty: May 27, 2025 - Scheduled follow-up: June 24, 2025 (No-Show) - MARIA-RN assistance offered to reschedule with Dr. Carty next Tueday: Mr. Trujillo declined due to transportation issues he does not drive. A: Assessment: Last USD done: Apr DSM-5 Diagnostic Impression: - Severe opioid use disorder, in sustained remission on maintenance therapy - Severe methamphetamine use disorder - Severe alcohol use disorder, in remission P: Plan - Discussed case with the covering MARIA prescriber for recommendations on managing Mr. Trujillo's medication needs and follow-up care. - Explore alternative methods for follow-up appointments,will discuss with Covering MARIA Provider to accommodate Mr. Trujillo's transportation limitations. Active Diagnosis Code Description V11.3 Personal History of Alcoholism (ICD-9-CM V11.3) M54.50 Low back pain ([facility] [id number]) F19.20 Polysubstance dependence ([facility] [id number]) V60.0 Lack of Housing (ICD-9-CM V60.0) F32.A Depression ([facility] [id number]) 301.9 Personality Disorder Nos (ICD-9-CM 301.9) 070.51 Hepatitis C (ICD-9-CM 070.51) F43.12 Chronic post-traumatic stress disorder ([facility] [id number]) I10. Hypertension ([facility] [id number]) E03.9 Hypothyroidism ([facility] 59179257) F11.21 Opioid dependence, on agonist therapy ([facility] [id number]) F14.20 Cocaine user ([facility] [id number]) Z59.00 Homeless single person ([facility] [id number]) Most Recent Naloxone Prescription Information: Reminder Term: VA-NALOXONE USE Drug: NALOXONE HCL 4MG/SPRAY SOLN NASAL SPRAY Outpatient Medication: NALOXONE HCL 4MG/SPRAY SOLN NASAL SPRAY 08/08/2025@13:25:38 Status: ACTIVE Start date: 07/09/2025@13:25:38 Stop date: 08/08/2025@13:25:38 Duration: 0 D Last release date: 07/09/2025@13:25:38 Days supply: 30 Active Outpatient Medications (including Supplies): Active Outpatient [...] SAME MEAL EACH DAY) Indication: FOR PROSTATE MEDICATIONS Alphabetized list of outpatient Rx's, inpatient orders, remote and Non-VA meds Legend: OPT = VA issued outpatient prescription, INP = VA issued inpatient order Non-VA Meds Last Documented On: Data not found OPT ALBUTEROL 90MCG (CFC-F) 200D ORAL INHL (Status = ACTIVE) INHALE 2 PUFFS BY INHALATION EVERY 4 HOURS NEEDED FOR SHORTNESS OF BREATH FOR SHORTNESS OF BREATH Last Released: 02/26/25 Days Supply: 30 Rx Expiration Date: 08/13/25 Refills Remainin OPT AMLODIPINE BESYLATE 10MG TAB (Status = ACTIVE) TAKE ONE TABLET BY MOUTH ONCE DAILY FOR BLOOD PRESSURE Last Released: 05/01/25 Days Supply: 90 Rx Expiration Date: 02/08/26 Refills Remainin OPT BUPRENORPHINE 8MG/NALOXONE 2MG SL FILM (Status = ACTIVE) DISSOLVE 1 FILM UNDER THE TONGUE THREE TIMES A DAY FOR OPIOID DEPENDENCE Last Released: Days Supply: 7 Rx Expiration Date: 08/08/25 Refills Remainin OPT GABAPENTIN 600MG TAB (Status = ACTIVE) TAKE ONE TABLET BY MOUTH THREE TIMES A DAY FOR NERVE PAIN Last Released: 06/03/25 Days Supply: 90 Rx Expiration Date: 02/08/26 Refills Remainin OPT LEVOTHYROXINE NA 150MCG TAB (Status = ACTIVE) TAKE ONE TABLET BY MOUTH EVERY DAY IN THE MORNING FOR THYROID Last Released: 05/01/25 Days Supply: 45 Rx Expiration Date: 02/08/26 Refills Remainin OPT NALOXONE HCL 4MG/SPRAY SOLN NASAL SPRAY (Status = ACTIVE) INSTILL 1 SPRAY IN NOSE ONCE DO NOT PRIME OR TEST THE SPRAY DEVICE. GENTLY INSERT TIP INTO ONE NOSTRIL AND PRESS THE PLUNGER FIRMLY TO GIVE THE ENTIRE DOSE. USE EACH DEVICE ONLY ONCE. Last Released: 07/09/25 Supply: 30 Rx Expiration Date: 08/08/25 Refills Remainin OPT TAMSULOSIN HCL 0.4MG CAP (Status = ACTIVE) TAKE ONE CAPSULE BY MOUTH EVERY EVENING FOR PROSTATE (TAKE 30 MINUTES AFTER THE SAME MEAL EACH DAY) Last Released: 05/01/25 Supply: 90 Rx Expiration Date: 02/08/26 Refills Remainin Other medications previously dispensed in the last year: BRIEF MENTAL STATUS ASSESSMENT: Appearance: OTHER Speech: mumbling OTHER Emotions: Mood appeared dysthymic Thought process and content: OTHER Sensory Perceptions: OTHER Mental Capacities: Judgment and insight appeared fair, oriented x4 ROBERTA: RISK ASSESSMENT HOMICIDE/VIOLENCE RISK ASSESSMENT: HOMICIDAL IDEATION Patient denies passive or active homicidal ideation. The patient reports passive or active homicidal ideation. Please describe: 1) Patients plan, details of their plan, its lethality, and imminence. 2) Does the patient have the means and presents intent to follow through with plan. SUICIDE RISK ASSESSMENT: SUICIDAL IDEATION The patient denied the presence of suicidal thoughts, plans or intents. SUICIDAL PLAN Please describe: 1) Patients plan, details of their plan, its lethality, accessibility, and imminence. 2) Does the patient have the ability to carry out their plan to commit suicide. MENTAL STATUS/HEALTH ASSESSMENT Behavior:AGITATED Orientation: person, place, time Judgement: impaired Thought Process: Circumstantial Mood:Irritated Affect: Flat Activity: Restless Current Substance Use: Alcohol Tobacco Marijuana Cocaine Opiate Other: Lack of insight into harmful effects of substance abuse HX Severe opioid use disorder, in sustained remission on maintenance therapy NURSING INTERVENTIONS: Case Management NURSING INTERVENTIONS - MARIA-RN followed up with Bradshaw triage MARIA needs he is requesting monthly medication to be placed for window. 1. Scheduling and Appointment Management: - Spoke with Mr. Trujillo in [facility].Bradshaw reports has no working phone. Offered to scheduled follow up with Dr. Carty next Monday face to face he declined due to not having transportation. In light of his transportation issues discussed with covering MARIA Provider. 2. Medication Management: - Mr. Trujillo was informed Dr. Carty had labs and advised to complete today. He was informed to return to clinic once he updated labs and covering provider may be able to assess him today. He was agreeable to plan. - Collaborate with the covering MARIA prescriber to determine if interim medication can be provided until Mr. Trujillo can attend his follow-up appointment. - Educate Mr. Trujillo on the importance of adhering to his medication regimen and the risks associated with missed doses or self-medicating. - Provided clinic contact to Outpatient MARIA manager helpdesk [phone] should need to reschedule or to cancel. Advised of MARIA-C no show policy. - Informed if they experience an acute emergent medical or Mental health crisis they should seek assistance by calling 911 or presenting to the nearest ER. - was also provided how to Crisis Line by dialing [phone] then press 1 urgent. PLAN OF CARE: - Bradshaw agreed to update labs today and will return to waiting area for covering MARIA Provider to evaluate his concerns. - MARIA-RN addressed Bradshaw's request and informed MARIA Prescriber. Length of visit 15 minutes PROVIDER ACTION FYI Only: /es/ ROCHELLE BROOKS Registered Nurse Signed: 07/09/2025 13:53 Receipt Acknowledged By: 07/09/2025 14:14 /aren/ JOSE ALEJANDRO HERNANDEZ MD Attending Physician, Internal Medicine 07/10/2025 08:03 /es/ MARCIA CARTY MD Staff Physician, Substance Abuse Clinic ROCHELLE BROOKS [facility]
--- OUTSIDE RECORDS SUMMARY | 2025-07-09 09:59 | XMS_ITS | Encounter Summary ---
Author Name [facility] ([place]) Organization [facility] of [facility] ([place]) Address [address] [place] [id number] Care Team Providers Care High [employer] Counselor Name Role Phone SEAN TRACY Primary Care [...] Relationship to Policy Lemon [facility] ([facility]) MEDICARE ADVANTAGE [facility] ([facility]) March 13, 2017 [id number] HEDY TRUJILLO PATIENT MEDICARE (WNR) MEDICARE (M) PART B March 13, 2014 PART B [id number] HEDY TRUJILLO PATIENT MEDICARE (WNR) MEDICARE (M) PART B March 13, 2014 PART B [id number] HEDY TRUJILLO PATIENT MEDICARE (WNR) MEDICARE (M) PART B March 13, 2014 PART B [id number] HEDY TRUJILLO PATIENT MEDICARE (WNR) MEDICARE (M) PART B March 13, 2014 PART B [id number] HEDY TRUJILLO PATIENT MEDICARE (WNR) MEDICARE (M) PART B March 13, 2014 PART B [id number] HEDY TRUJILLO PATIENT MEDICARE (WNR) MEDICARE (M) PART B March 13, 2014 PART B [id number] HEDY TRUJILLO PATIENT MEDICARE (WNR) MEDICARE (M) PART B March 13, 2014 PART B [id number] HEDY TRUJILLO PATIENT MEDICARE (WNR) MEDICARE (M) PART B March 13, 2014 PART B [id number] HEDY TRUJILLO PATIENT MEDICARE (WNR) MEDICARE (M) PART B March 13, 2014 PART B [id number] HEDY TRUJILLO PATIENT MEDICARE (WNR) MEDICARE (M) PART B Jan 11, 2003 PART B [id number] HEDY TRUJILLO PATIENT MEDICARE (WNR) MEDICARE (M) PART B Jan 11, 2003 PART B [id number] HEDY TRUJILLO PATIENT MEDICARE (WNR) MEDICARE (M) PART B Jan 11, 2003 PART B [id number] HEDY TRUJILLO PATIENT MEDICARE (WNR) MEDICARE (M) PART B Jan 11, 2003 PART B [id number] HEDY TRUJILLO PATIENT MEDICARE (WNR) MEDICARE (M) PART A Nov 13, 2000 PART A [id number] HEDY TRUJILLO PATIENT MEDICARE (WNR) MEDICARE (M) PART A Nov 13, 2000 PART A [id number] HEDY TRUJILLO PATIENT MEDICARE (WNR) MEDICARE (M) PART A Nov 13, 2000 PART A [id number] HEDY TRUJILLO PATIENT MEDICARE (WNR) MEDICARE (M) PART A Nov 13, 2000 PART A [id number] HEDY TRUJILLO PATIENT MEDICARE (WNR) MEDICARE (M) PART A Jul 14, 1995 PART A [id number] HEDY TRUJILLO PATIENT MEDICARE (WNR) MEDICARE (M) PART A Jul 14, 1995 PART A [id number] HEDY TRUJILLO PATIENT MEDICARE (WNR) MEDICARE (M) PART A Jul 14, 1995 PART A [id number] HEDY TRUJILLO PATIENT MEDICARE (WNR) MEDICARE (M) PART B Jul 14, 1995 PART B [id number] HEDY TRUJILLO PATIENT MEDICARE (WNR) MEDICARE (M) PART B Jul 14, 1995 PART B [id number] HEDY TRUJILLO PATIENT MEDICARE (WNR) MEDICARE (M) PART A Jul 14, 1995 PART A [id number] HEDY TRUJILLO PATIENT MEDICARE (WNR) MEDICARE (M) PART A Jul 14, 1995 PART A [id number] HEDY TRUJILLO PATIENT MEDICARE (WNR) MEDICARE (M) PART A Jul 14, 1995 PART A [id number] HEDY TRUJILLO PATIENT MEDICARE (WNR) MEDICARE (M) PART A Jul 14, 1995 PART A [id number] HEDY TRUJILLO PATIENT MEDICARE (WNR) MEDICARE (M) PART A Jul 14, 1995 PART A [id number] HEDY TRUJILLO PATIENT MEDICARE (WNR) MEDICARE (M) PART A Jul 14, 1995 PART A [id number] HEDY TRUJILLO PATIENT MEDICARE (WNR) MEDICARE (M) PART A Jul 14, 1995 PART A [id number] HEDY TRUJILLO PATIENT MEDICARE (WNR) MEDICARE (M) PART A Jul 14, 1995 PART A [id number] HEDY TRUJILLO PATIENT MEDICARE PART D (WNR) MEDICARE (M) PART D Oct 13, 2022 PART D [id number] HEDY TRUJILLO PATIENT [facility] MCR (WNR) MEDICARE ADVANTAGE MCR (WNR) Oct 13, 2022 [id number] HEDY TRUJILLO PATIENT Selected Encounter This section includes the information on record at [place] for the Encounter. Date/Time Encounter Type Encounter Description Reason Provider Source Jul 09, 2025 01:59 PM OFFICE O/P EST LOW 20 MIN SUBSTANCE USE DISORDER IND ICD-10-CM F11.21 Opioid dependence, in remission JOSE C MELGAR MD [facility] Encounter Template Text not used by [facility] Assessments - Encounter Diagnoses This section includes the primary and secondary diagnoses documented for the Encounter. Date/Time Primary/Secondary Diagnosis Diagnosis Name Provider Source Jul 09, 2025 02:13 PM PRIMARY Opioid dependence, in remission SUSIE MELGAR MD [facility] Plan of Treatment: Future Appointments (+ 6 months) and Future Tests (+/- 45 days) The Plan of Treatment section includes future care activities for the patient [facility] This section includes future appointments and future orders which are active, pending or scheduled. Future Appointments This section includes appointments that were scheduled to occur 6 months from the date of the Encounter, up to a maximum of 20 appointments. The data comes from all [place] treatment facilities. Appointment Date/Time Appointment Type Appointme nt Facility Name Aug 05, 2025 01:30 PM AMBULATORY - [facility]RY [facility] Active, Pending, and [...] of theEncounter. The data comes from all [place] treatment facilities. Test Date/Time Test Type Test Details Facility Name Jun 30, 2025 12:00 AM Laboratory - Chemi stry Order OCCULT BLOOD FIT X1 SCREEN (MFP ONLY) STOOL FECES SP ~Order entered per FIT testing campaign [facility] Lab Results: +/- 30 days of the encounter This section includes the Chemistry and Hematology Lab Results on record with [facility] for the patient. Radiology Reports and Pathology Reports are provided separately, in subsequent sections. Lab Results This section contains the Chemistry/Hematology Results that were resulted 30 days before or 30 daysafter the date of the Encounter. Date/Time Source Result Type Result - Unit Interpretation Reference Range Specimen Type Comment Jul 09, 2025 01:33 PM [facility] GCMS SCREEN,U/M URINE,RA NDOM Specimen Type: URINE,RANDOM Comment: ~For Test: GCMS SCREEN,U/M ~amphetamine metabolites Ethyl glucuronide interpretation: Negative Urine drug screen is POSITIVE. The following drugs were detected: Amphetamine Methamphetamine Nicotine Cotinine Caffeine Gabapentin Ibuprofen Ordering Provider: ALEJANDRO CARTY Report Released Date/Time: May 27, 2025 10:11 AM Reporting Lab: [address] [address] Performing Lab: [facility] Dept of Pathology [facility] [address] GCMS SCREEN,U/M comment Jul 09, 2025 01:33 PM [facility] ETHYL GLUCURONIDE,URINE ([facility]) URINE,RANDOM Specim en Type: URINE,RANDOM Comment: ~For Test: GCMS SCREEN,U/M ~amphetamine metabolites Ethyl glucuronide interpretation: Negative Urine drug screen is POSITIVE. The following drugs were detected: Amphetamine Methamphetamine Nicotine Cotinine Caffeine Gabapentin Ibuprofen Ordering Provider: ALEJANDRO CARTY Report Released Date/Time: May 27, 2025 10:11 AM Reporting Lab: [address] [address] Performing Lab: [facility] Dept of Pathology [facility] [address] ETHYL GLUCURONIDE,URINE ([facility]) <500 ng/mL 0-499 Jul 09, 2025 01:33 PM [facility] TOX SCREEN ([facility]) URINE,RANDOM Specimen Type : URINE,RANDOM Comment: ~For Test: GCMS SCREEN,U/M ~amphetamine metabolites Ordering Provider: ALEJANDRO CARTY Report Released Date/Time: May 27, 2025 10:11 AM Reporting Lab: [address] [address] Performing Lab: [address] [address] BENZODIAZEPINES Not Detected Not Detecte d CANNABINOIDS,URINE [...] and tobacco- related health factors from the [place] facility where the Encounter took place. Current Smoking Status This section includes the most current smoking, or tobacco-related health factor, from the [place] facility where the Encounter took place. Date/Time Current Smoking Status Comment Facil ity Feb 07, 2025 08:30 AM VA-TOBACCO USE ELOISE RY DAY CIGARETTES [facility] Tobacco Use History This section includes a history of the smoking, or tobacco-related health factors, that were collected on or before the date of the Encounter. The data comes from the [place] facility where the Encounter took place. 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 USE SENIOR QUANTITY SURVEYOR NO [facility] Feb 07, [...] Feb 07, 2023 11:00 AM VA-TOBACCO USE SENIOR QUANTITY SURVEYOR YES [facility] Feb 07, [...] Feb 16, 2022 01:00 PM VA-TOBACCO USE SENIOR QUANTITY SURVEYOR NO [facility] Feb 16, [...] Jul 24, 2019 01:11 PM VA-TOBACCO USE SENIOR QUANTITY SURVEYOR NO [facility] Jul 24, 2019 01:11 PM VA-TOBACCO USE MED NO [facility] Jul 24, 2019 01:11 PM VA-TOBACCO USE WI 30 MIN OF WAKEUP [facility] Jul 24, 2019 01:11 PM VA-TOBACCO USER EVERY DAY [facility] March 23, 2018 09:34 AM SMOKING CESSATION NO [facility] March 16, 2018 08:14 PM CURRENT TOBACCO USER [facility] March 16, 2018 08:14 PM SMOKER - OFFERRED MEDS (PROVIDER) [facility] March 16, 2018 08:14 PM TOBACCO OFFERRED S TOP SMOKING CLINIC [facility] Advance Directives: All historical and current Section Date Range: From patient's date of to the date document was created. This section includes ALL of a patient's completed or amended [place] Advance and Rescinded Directives. The entries below indicate that a directive exists for the patient, but an actual copy is not included with this document. The data comes from all [facility]. Date Advance Directives Provider Source Nov 28, 2017 ADVANCE DIRECTIVE DISCUSSION SUSIE BULLARD [facility] March 16, 2015 ADVANCE DIRECTIVE CASEY FELIX [facility] Jun 30, 2014 ADVANCE DIRECTIVE DISCUSSION IVONE [facility] Jan 21, 2003 ADVANCE DIRECTIVE DISCUSSION TJ MERCADO Jan 07, 2003 ADVANCE DIRECTIVE DISCUSSION SANCHEZ BROWN Encounter Notes: All associated encounter notes This section contains the clinical notes associated to the Encounter. Date/Time Encounter Note(s) Provider Source Jul 11, 2025 02:32 PM LETTERS: LOCAL TITLE: TEST RESULTS PATIENT LETTER (MAILED TO PATIENT) STANDARD TITLE: LETTERS DATE OF NOTE: JUL 11, 2025@14:32 ENTRY DATE: JUL 11, 2025@14:32:42 AUTHOR: ALEJANDRO CARTY EXP COSIGNER: URGENCY: STATUS: COMPLETED [address] [id number] JUL 11, 2025 AARON TRUJILLO [address] [place] [address] Dear Mr. Aaron Trujillo : I would like to update you on your recent lab results: ETHYL GLUCURONIDE,URINE ([facility]) URINE,RANDOM SP LB #[id number] Collection time: Jul 09, 2025@13:33 Test Name Result Units Range --------- ------ ----- ----- AMPHETAMINES DETECTED H Ref: Not Detected BARBITURATES Not Detected Ref: Not Detected BENZODIAZEPINES Not Detected Ref: Not Detected CANNABINOIDS,URINE Not Detected Ref: Not Detected COCAINE,URINE DETECTED H Ref: Not Detected OPIATES,URINE Not Detected Ref: Not Detected URINE METHADONE Not Detected Ref: Not Detected URINE OXYCODONE Not Detected Ref: Not Detected CREATININE,VERIFY 217 mg/dL URINE BUPRENORHINE DETECTED H Ref: Not Detected URINE FENTANYL Not Detected Ref: Not Detected Comments: Ordering Provider: Alejandro Carty MD Report Released Date/Time: Jul 09, 2025@15:35 Reporting Lab: [facility] [CLIA# [id number]] [address] [place] [phone] Performing Lab: [facility] [CLIA# [id number]] [address] [place] [phone] Collection time: Jul 09, 2025@13:33 Test Name Result Units Range --------- ------ ----- ----- EtGlu <500 ng/mL 0 - 499 GCMS SCREEN,U/M comment Comments: ~For Test: GCMS SCREEN,U/M ~amphetamine metabolites Ethyl glucuronide interpretation: Negative Urine drug screen is POSITIVE. The following drugs were detected: Amphetamine Methamphetamine Nicotine Cotinine Caffeine Gabapentin Ibuprofen Ordering Provider: Alejandro Carty MD Report Released Date/Time: Jul 11, 2025@14:09 Reporting Lab: [facility] [CLIA# [id number]] [address] [place] [phone] Performing Lab: [facility] [CLIA# [id number]] [facility] Dept of Pathology [address] [place] [address] [place] [address] Sincerely, ALEJANDRO CARTY MD Staff Physician, [facility] JUANIS,ALEJANDRO LESTER [facility] Jul 10, 2025 10:20 AM LETTERS: LOCAL TITLE: TEST RESULTS PATIENT LETTER (MAILED TO PATIENT) STANDARD TITLE: LETTERS DATE OF NOTE: JUL 10, 2025@10:20 ENTRY DATE: JUL 10, 2025@10:20:53 AUTHOR: ALEJANDRO CARTY EXP COSIGNER: URGENCY: STATUS: COMPLETED [place] [id number] JUL 10, 2025 AARON TRUJILLO [address] [place] [address] Dear Mr. Aaron Trujillo : I would like to update you on your recent lab results: TOX SCREEN ([facility]) URINE,RANDOM SP LB #[id number] Collection time: Jul 09, 2025@13:33 Test Name Result Units Range --------- ------ ----- ----- AMPHETAMINES DETECTED H Ref: Not Detected BARBITURATES Not Detected Ref: Not Detected BENZODIAZEPINES Not Detected Ref: Not Detected CANNABINOIDS,URINE Not Detected Ref: Not Detected COCAINE,URINE DETECTED H Ref: Not Detected OPIATES,URINE Not Detected Ref: Not Detected URINE METHADONE Not Detected Ref: Not Detected URINE OXYCODONE Not Detected Ref: Not Detected CREATININE,VERIFY 217 mg/dL URINE BUPRENORHINE DETECTED H Ref: Not Detected URINE FENTANYL Not Detected Ref: Not Detected Comments: Ordering Provider: Alejandro Carty MD Report Released Date/Time: Jul 09, 2025@15:35 Reporting Lab: [facility] [CLIA# [id number]] [address] [place] [phone] Performing Lab: [facility] [CLIA# [id number]] [address] [place] [address] Sincerely, ALEJANDRO CARTY MD Staff Physician, [facility] JUANISAARON MARC ALLEN [facility] Jul 09, 2025 02:14 PM ACCOUNTING OF DISC LOSURES NOTE: LOCAL TITLE: STATE PRESCRIPTION DRUG MONITORING PROGRAM STANDARD TITLE: ACCOUNTING OF DISCLOSURES NOTE DATE OF NOTE: JUL 09, 2025@14:14:21 ENTRY DATE: JUL 09, 2025@14:14:21 AUTHOR: SUSIE MELGAR COSIGNER: URGENCY: STATUS: COMPLETED This PDMP query was submitted by Susie Melgar MD, MD. The clinical justification for this PDMP query is to review controlled substances prescribed outside of the [place], and any additional information that may become available, as an important component of standard clinical care, and in accordance with [facility] policy. Patient information was shared with the PDMP Appriss Snyder. No prescription(s) for controlled substances outside the [place] were found in the last 90 days. /aren/ SUSIE MELGAR MD Attending Physician, Internal Medicine Signed: 07/09/2025 14:14 SUSIE MELGAR MD [facility] Jul 09, 2025 02:03 PM PSYCHIATRY MEDICAT ION MGT NOTE: LOCAL TITLE: PSYCHIATRY MEDICATION STANDARD TITLE: PSYCHIATRY MEDICATION MGT NOTE DATE OF NOTE: JUL 09, 2025@14:03 ENTRY DATE: JUL 09, 2025@14:03:44 AUTHOR: SUSIE MELGAR COSIGNER: URGENCY: STATUS: COMPLETED SAC PHYSICIAN SUBOXONE MEDICATION REVIEW PATIENT IDENTIFYING DATA Name: AARON TRUJILLO Social Security Number: [id number] Age: 64 Gender: MALE Date: JUL 09, 2025 Start/end time: 13:40 - 14:00 DSM 5 DIAGNOSTIC IMPRESSION: Severe opioid use disorder, in sustained remission on maintenance therapy Severe methamphetamine use disorder Severe alcohol use disorder, in remission INTERVENTIONS: - Medication managment - Psychoeducation INTERIM HISTORY: Blakeslee presented without scheduled visit, recently missed visit with Dr. Carty 06/24. Shares ongoing difficulty managing methamphetamine use. Continues to want to quit. I know it's not good for me . Says [facility], however does not currently have a phone. I'm not good with phones, lighters, or glasses . Denies any recent non-prescribed opioid use or alcohol use. Reports taking Suboxone as prescribed. currently living in [place] with a roommate. Identifies his living situation and lack of social support as contributors to ongoing use. Agreeable to renewing naloxone today. I also encouraged him not to present without a scheduled visit as he may not be able to be seen by a provider the same day unscheduled to get his meds. Scheduled f/u with Dr. Carty in 4 wks and wrote down the date and time for . Acute Intoxication No Acute Withdrawal No Last UDS: See below UDS Collected today?: Yes Cravings:No Medication SE:Denies Substance Use: See above Desire to Titrate?: No If yes, then when: MENTAL STATUS EXAM: Speech: normal rate and rhythm Mood: dysphoric Affect: Depressed Thought process: No alterations SI: Denies Insight: fair Judgment: fair Comments: MEDICATIONS: Active Outpatient Medications (including Supplies): Issue Date Status Last Fill Active Outpatient Medications Refills Expiration 1) ALBUTEROL 90MCG (CFC-F) 200D ORAL INHL Qty: ACTIVE Issue: 08/12/24 1 for 30 days Sig: INHALE 2 PUFFS BY Refills: 2 Last : 02/27/25 INHALATION EVERY 4 HOURS NEEDED Expr : 08/13/25 Indication: FOR SHORTNESS OF BREATH 2) AMLODIPINE BESYLATE 10MG TAB Qty: 90 for 90 ACTIVE Issue: 02/07/25 days Sig: TAKE ONE TABLET BY MOUTH ONCE Refills: 2 Last : 04/29/25 DAILY Expr : 02/08/26 Indication: FOR BLOOD PRESSURE 3) GABAPENTIN 600MG TAB Qty: 270 for 90 days ACTIVE Issue: 02/07/25 Sig: TAKE ONE TABLET BY MOUTH THREE TIMES A Refills: 2 Last : 06/13/25 DAY Expr : 03/29/26 Indication: FOR NERVE PAIN 4) LEVOTHYROXINE NA 150MCG TAB Qty: 45 for 45 ACTIVE Issue: 02/07/25 days Sig: TAKE ONE TABLET BY MOUTH EVERY DAY Refills: 2 Last : 04/29/25 IN THE MORNING Expr : 02/08/26 Indication: FOR THYROID 5) TAMSULOSIN HCL 0.4MG CAP Qty: 90 for 90 days ACTIVE Issue: 02/07/25 Sig: TAKE ONE CAPSULE BY MOUTH EVERY EVENING Refills: 2 Last : 04/29/25 (TAKE 30 MINUTES AFTER THE SAME MEAL EACH Expr : 02/08/26 DAY) Indication: FOR PROSTATE Issue Date Status Last Fill Pending Outpatient Medications Refills Expiration 1) BUPRENORPHINE 8MG/NALOXONE 2MG SL FILM Qty: PENDING 81 Sig: DISSOLVE 1 FILM UNDER THE TONGUE Refills: 0 THREE TIMES A DAY Indication: FOR OPIOID DEPENDENCE 2) NALOXONE HCL 4MG/SPRAY SOLN NASAL SPRAY Qty: PENDING 2 Sig: INSTILL 1 SPRAY IN NOSE ONCE DO NOT Refills: 0 PRIME OR TEST THE SPRAY DEVICE. GENTLY INSERT TIP INTO ONE NOSTRIL AND PRESS THE PLUNGER FIRMLY TO GIVE THE ENTIRE DOSE. USE EACH DEVICE ONLY ONCE. Indication: FOR SUSPECTED OPIOID OVERDOSE 7 Total Medications LABS: Collection DT Specimen Test [...] Done, no concerning Rx information --Naloxone Kit: updated today --Consulting Psychiatrist for Psychiatric Medication Management: No current psychiatric issues requiring psychiatric pharmacotherapy. --Suboxone Refill: Refill for pickle maker at window x 27 days until f/u with Dr. Carty; on review of labs, it appears has had numerous UDS and urine GCMS with bupe present and no naloxone on GCMS suggesting some amount of Suboxone use. 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 Continued Suboxone renewal with goal of harm reduction. --Other medical/medication Issues: Blakeslee plans to get an updated phone this or next week. Encouraged him to let Dr. Carty know when he has one in order to be considered again for referral to [facility]. --RTC (F2F) 08/[address] Carty /aren/ SUSIE MELGAR MD Attending Physician, Internal Medicine Signed: 07/09/2025 14:13 SUSIE MELGAR MD [facility]
[2025-07-15] VITALS (32 sets, daily range): BP systolic 146–231; BP diastolic 82–127; PULSE 65–103; TEMP 36.5–37.1; O2SAT 80–98; BMI 23.1; BMI 23.9
--- OUTSIDE RECORDS SUMMARY | 2025-07-15 09:14 | XMS_ITS | Continuity of Care Document ---
Author Name [facility] Organization [facility] Care Team Providers Care Assistant Store Manager Name Role Phone [facility] Unavailable Unavailable Problems Combined list of problems from Department of Defense and [facility] facilities. It does not include entries that were removed or entered in error. Problem Status Onset Date Problem Type Date of Resolution Comments Source Blister Active 12/14/[address] [facility] Homeless single person Active 01/12/20 19 Condition [facility] Acquired hammer toe of right foot Active [facility] Alcohol dependence Active Condition Oct 27, 2020 Entered By: AMBER ESTRADA ICA Comment: Alcohol use disorder, severe, in early remission [facility] Alcohol Dependence Active Condition [facility] Alcohol dependence (SNOMED CT 04866292) Active Condition [facility] Alcohol Withdrawal Active Condition [facility] Antisocial Personality Dis Active Condition [facility] Anxiety disorder Active Condition Oct 27, 2020 Entered By: AMBER ESTRADA ICA Comment: Unspecified anxiety disorder [facility] Anxiolytic Abuse-Remission Active Condition [facility] Asthma, unspecified type, with status asthmaticus (ICD-9-CM 493.91) [facility] Attn Defic w/o Hyperactiv Active Condition [facility] Cellulitis of buttock Active Condition [facility] Chronic Low Back Pain (ICD-9-CM 724.2) Active [facility] Chronic Obstructive Pulmonary Disease * (ICD-9-CM 496.) [facility] Chronic post-traumatic stress disorder Active Condition [facility] Cocaine abuse (SNOMED CT 31093952) Active Condition [facility] Cocaine dependence (SNOMED CT 06607813) Active Condition [facility] Cocaine user Active Condition [facility] Depression (SNOMED CT 99723865) Active Condition [facility] Depression, NOS Active Condition [facility] Dysthymia Active Condition Oct 27 Entered By: AMBER ESTRADA Comment: Persistent depressive disorder, early onset, with persistent major depressive episode, moderate-sever e [facility] Erectile dysfunction Active Condition [facility] Essential hypertension Active Condition [facility] Exposure to viral hepatitis Active Condition Apr 25, 2014 Entered By: TREVON ARTHUR Comment: HCAb-reactive, but HCV RNA copies/viral load-nondetect ed [facility] Fecal occult blood: positive Active Condition Oct 21, 2016 Entered By: JUDY HENDRICKSON Comment: Pt. has scheduled & cancelled colonoscopy x 2. [facility] GERD * (ICD-9-CM 530.81) Active Condition [facility] Hepatitis C Active Condition [facility] Hepatitis C antibody test positive Active Condition Oct 16, 2020 Entered By: TEGAN PONCE Comment: Negative for active virus. [facility] History of substance abuse Active Condition [facility] Homeless Active Condition [facility] Homeless single person Active Condition [facility] Hyperlipidemia * (ICD-9-CM 272.4) Active Condition [facility] Hypertension Active Condition [facility] Hypothyroidism Active Condition [facility] Hypothyroidism (SNOMED CT 30182238) Active Condition [facility] INADEQUATE MATERIAL RESOURCES Active Condition [facility] Incarceration (SNOMED CT 68777946) Active Condition [facility] Irritability and anger Active Condition [facility] Knee joint painful on movement Active Condition TANESHA QUESADA [facility] Knee pain (SNOMED CT 31194397) Active Condition [facility] LACK OF HOUSING Active Condition [facility] Lack of Housing (ICD-9-CM V60.0) Active Condition [facility] LBP - Low back pain Active Condition [facility] Legal intervention Active Condition [facility] Low back pain Active Condition [facility] Low back pain (SNOMED CT 918318172) Active Condition [facility] Lumbar radiculopathy Active Condition [facility] Lumbar spinal stenosis Active Condition [facility] Lumbosacral radiculopathy Active Condition [facility] Mild chronic obstructive pulmonary disease Active Condition [facility] Nicotine Dependence (ICD-9-CM 305.1) Active [facility] Nicotine dependence (SNOMED CT 52166176) Active Condition [facility] Onychomycosis Active Condition RUDYKAVITHA Danish [facility] Opioid abuse (SNOMED CT 4850925) Active Condition [facility] Opioid dependence Active Condition [facility] Grant[facility]remi [facility] Opioid dependence (SNOMED CT 95758724) Active Condition [facility] Opioid dependence, on agonist therapy Active Condition [facility] Osteoarthrosis involving the knee (ICD-9-CM 715.98) Active [facility] Other specified Alcohol-Induced mental disorders Active Condition [facility] Other Specified Counseling (ICD-9-CM V65.49) [facility] Pain in left knee Active [facility] Personal History of Alcoholism (ICD-9-CM V11.3) [facility] Personality disorder (SNOMED CT 46553604) Active Condition [facility] Personality Disorder Nos Active Condition [facility] Polysubstance dependence (SNOMED CT 12395650) Active Condition [facility] Rectal Bleeding (ICD-9-CM 569.3) Active Condition [facility] Sensorineural hearing loss, bilateral Active Condition [facility] Single Active Condition [facility] Stimulant dependence Active Condition Oct 27, 2020 Entered By: AMBER ESTRADA ICA Comment: Stimulant use disorder, severe [facility] Suicidal thoughts Active Condition VALENTINA CHIN [facility] SURVEILLANCE COLONOSCOPY IN 2011--LOST POLYP [facility] Tinea Pedis Active Condition [facility] Unemployed [facility] Unspecified episodic mood Disorder Active Condition [facility] Unspecified Personality Disorder Active Condition [facility] Carpal tunnel syndrome Inactive Condition 12/20/[address]22 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 Active Diagnosis [facility] Diagnosis: ICD-10-CM F19.20 Other psychoactive substance dependence, uncomplicated Active Diagnosis [facility] Diagnosis: ICD-10-CM S83.90XA Sprain of unspecified site of unspecified knee, init encntr Active Diagnosis [facility] Diagnosis: ICD-10-CM F15.20 Other stimulant dependence, uncomplicated Active Diagnosis [facility] Diagnosis: ICD-10-CM F14.20 Cocaine dependence, uncomplicated Active Diagnosis [facility] Diagnosis: ICD-10-CM Z13.9 Encounter for screening, unspecified Active Diagnosis [facility] Diagnosis: ICD-10-CM F10.20 Alcohol dependence, uncomplicated Active Diagnosis [facility] Medications Combined list of outpatient medications from Department of Defense and [facility] facilities.Medications provided include 1) outpatient medications from the last 15 months, and 2) patient-reported medications. Medication Details Route Status Patient Instructions Prescription Expires Prescription Number Last Dispense Date Ordering Provider Order Date Order Qty Source ALBUTEROL 90MCG/ACTUA T (CFC-F) INHL,ORAL,8 .5GM DOSE COUNTER INHALE 2 PUFFS BY INHALATI ON EVERY 4 HOURS NEEDED FOR SHORTNES S OF BREATH FOR SHORTNES S OF BREATH RESPIR ATORY (INHAL ATION) ACTIVE 08/13/2025 [id number] 5 YINKA TRACY MD 2023 1 [facility] AMLODIPINE BESYLATE 10MG TAB TAKE ONE TABLET BY MOUTH ONCE DAILY FOR BLOOD PRESSURE ORAL ACTIVE 02/08/2026 [id number] 5 LINDA URENA 2024 90 [facility] AMLODIPINE BESYLATE 10MG TAB TAKE ONE TABLET BY MOUTH ONCE DAILY FOR BLOOD PRESSURE ORAL 09/11/2024 [id number] 4 YINKA TRACY MD 2023 30 [facility] [place] 8MG/NALOXON E 2MG FILM,SUBLIN GUAL DISSOLVE 1 FILM UNDER THE TONGUE THREE TIMES A DAY FOR OPIOID DEPENDEN CE SUBLIN GUAL ACTIVE 08/08/2025 [id number] 5 CLIFTON HERNANDEZ MD 2024 81 [facility] NAMED [facility] [place] 8MG/NALOXON E 2MG FILM,SUBLIN GUAL DISSOLVE 1 FILM UNDER THE TONGUE THREE TIMES A DAY FOR OPIOID DEPENDEN CE SUBLIN GUAL DISCONT INUED BY TOPHER Guy 08/08/2025 [id number] 5 CLIFTON HERNANDEZ MD 2024 21 [facility] [place] 8MG/NALOXON E 2MG FILM,SUBLIN GUAL DISSOLVE 1 FILM UNDER THE TONGUE THREE TIMES A DAY FOR OPIOID DEPENDEN CE SUBLIN GUAL DISCONT INUED 05/29/2025 [id number] 5 MAC CARTY 2024 84 [facility] [place] 8MG/NALOXON E 2MG FILM,SUBLIN GUAL DISSOLVE 1 FILM UNDER THE TONGUE THREE TIMES A DAY FOR OPIOID DEPENDEN CE SUBLIN GUAL DISCONT INUED 05/23/2025 [id number] CLIFTON HERNANDEZ MD 2024 12 [facility] [place] NE 8MG/NALOXON E 2MG FILM,SUBLIN GUAL DISSOLVE 1 FILM UNDER THE TONGUE THREE TIMES A DAY FOR OPIOID DEPENDEN CE SUBLIN GUAL DISCONT INUED 04/24/2025 [id number] 5 MAC CARTY 2024 84 [facility] [place] 8MG/NALOXON E 2MG FILM,SUBLIN GUAL DISSOLVE 1 FILM UNDER THE TONGUE THREE TIMES A DAY FOR OPIOID DEPENDEN CE SUBLIN GUAL DISCONT INUED 03/27/2025 [id number] 5 MAC CARTY 2024 84 [facility] [place] 8MG/NALOXON E 2MG FILM,SUBLIN GUAL DISSOLVE 1 FILM UNDER THE TONGUE THREE TIMES A DAY FOR OPIOID DEPENDEN CE SUBLIN GUAL DISCONT INUED 02/27/2025 [id number] 5 MAC CARTY 2024 84 [facility] [place] NE 8MG/NALOXON E 2MG FILM,SUBLIN GUAL DISSOLVE 1 FILM UNDER THE TONGUE THREE TIMES A DAY FOR OPIOID DEPENDEN CE SUBLIN GUAL DISCONT INUED 01/30/2025 [id number] 5 MAC CARTY 2024 84 [facility] [place] NE 8MG/NALOXON E 2MG FILM,SUBLIN GUAL DISSOLVE 1 FILM UNDER THE TONGUE THREE TIMES A DAY FOR OPIOID DEPENDEN CE SUBLIN GUAL DISCONT INUED 11/28/2024 [id number] 4 MAC CARTY 2023 84 [facility] [place] 8MG/NALOXON E 2MG FILM,SUBLIN GUAL DISSOLVE 1 FILM UNDER THE TONGUE THREE TIMES A DAY FOR OPIOID DEPENDEN CE SUBLIN GUAL DISCONT INUED 11/21/2024 [id number] 4 MAC CARTY 2023 18 [facility] [place] NE 8MG/NALOXON E 2MG FILM,SUBLIN GUAL DISSOLVE 1 FILM UNDER THE TONGUE THREE TIMES A DAY FOR OPIOID DEPENDEN CE SUBLIN GUAL DISCONT INUED 10/26/2024 [id number] 4 ESAU POWELL S 2023 54 [facility] [place] NE 8MG/NALOXON E 2MG FILM,SUBLIN GUAL DISSOLVE 1 FILM UNDER THE TONGUE THREE TIMES A DAY FOR OPIOID DEPENDEN CE SUBLIN GUAL DISCONT INUED 09/05/2024 [id number] MAC CATRY 2023 42 [facility] [place] NE 8MG/NALOXON E 2MG FILM,SUBLIN GUAL DISSOLVE 1 FILM UNDER THE TONGUE THREE TIMES A DAY FOR OPIOID DEPENDEN CE SUBLIN GUAL 06/26/2025 [id number] 5 MAC CARTY 2024 84 [facility] [place] 8MG/NALOXON E 2MG FILM,SUBLIN GUAL DISSOLVE 1 FILM UNDER THE TONGUE THREE TIMES A DAY FOR OPIOID DEPENDEN CE SUBLIN GUAL 12/26/2024 [id number] 5 MAC CARTY 2024 84 [facility] [place] 8MG/NALOXON E 2MG FILM,SUBLIN GUAL DISSOLVE 1 FILM UNDER THE TONGUE THREE TIMES A DAY FOR OPIOID DEPENDEN CE SUBLIN GUAL 09/19/2024 [id number] 4 MAC CARTY 2023 84 [facility] [place] NE 8MG/NALOXON E 2MG FILM,SUBLIN GUAL DISSOLVE 1 FILM UNDER THE TONGUE THREE TIMES A DAY FOR OPIOID DEPENDEN CE MUST LAST UNTIL 07/23/24 SUBLIN GUAL 07/28/2024 [id number] 4 Milan STONE 2023 78 [facility] [place] NE 8MG/NALOXON E 2MG FILM,SUBLIN GUAL DISSOLVE 1 FILM UNDER THE TONGUE THREE TIMES A DAY FOR OPIOID DEPENDEN CE SUBLIN GUAL 06/21/2024 [id number] 4 CLIFTON HERNANDEZ MD 2023 81 [facility] GABAPENTIN 600MG TAB TAKE ONE TABLET BY MOUTH THREE TIMES A DAY FOR NERVE PAIN ORAL ACTIVE 02/08/2026 [id number] 5 LINDA URENA 2024 270 [facility] GABAPENTIN 600MG TAB TAKE ONE TABLET BY MOUTH THREE TIMES A DAY FOR NERVE PAIN ORAL DISCONT INUED 02/08/2026 [id number] 5 LINDA URENA 2024 90 [facility] GABAPENTIN 600MG TAB TAKE ONE TABLET BY MOUTH THREE TIMES A DAY FOR NERVE PAIN ORAL DISCONT INUED 02/15/2025 [id number] 5 YINKA TRACY MD 2024 42 [facility] GABAPENTIN 600MG TAB TAKE ONE TABLET BY MOUTH THREE TIMES A DAY FOR NERVE PAIN ORAL DISCONT INUED 01/30/2025 [id number] 5 HIEN SANTIZO MD 2024 90 [facility] GABAPENTIN 600MG TAB TAKE ONE TABLET BY MOUTH THREE TIMES A DAY FOR NERVE PAIN ORAL DISCONT INUED 11/25/2024 [id number] DOMINGO VALLE RA 2023 180 [facility] GABAPENTIN 800MG TAB TAKE ONE TABLET BY MOUTH THREE TIMES A DAY FOR NERVE PAIN ORAL DISCONT INUED (EDIT) 09/26/2024 [id number] 4 YINKA TRACY MD 2023 270 [facility] GABAPENTIN 800MG TAB TAKE ONE TABLET BY MOUTH THREE TIMES A DAY FOR NERVE PAIN ORAL DISCONT INUED 06/16/2024 [id number] YINKA TRACY MD 2023 90 [facility] IBUPROFEN 200MG TAB TAKE ONE TABLET BY MOUTH PRN ORAL ACTIVE LINO DUKE 2022 [place] [facility] LEVOTHYROXI NE NA 150MCG TAB TAKE ONE TABLET BY MOUTH EVERY DAY IN THE MORNING FOR THYROID ORAL ACTIVE 02/08/2026 [id number] 5 LINDA URENA 2024 45 [facility] LEVOTHYROXI NE NA 150MCG TAB TAKE ONE TABLET BY MOUTH EVERY DAY IN THE MORNING FOR THYROID ORAL DISCONT INUED 11/30/2024 [id number] DOMINGO VALLE RA 2023 45 [facility] LEVOTHYROXI NE NA 150MCG TAB (SYNTHROID) TAKE ONE TABLET BY MOUTH EVERY DAY IN THE MORNING FOR THYROID ORAL DISCONT INUED 11/25/2024 [id number] DOMINGO VALLE RA 2023 60 [facility] LEVOTHYROXI NE NA 150MCG TAB (SYNTHROID) TAKE ONE TABLET BY MOUTH EVERY DAY IN THE MORNING FOR THYROID ORAL DISCONT INUED 05/23/2025 [id number] 4 YINKA TRACY MD 2023 60 [facility] NALOXONE HCL 4MG/SPRAY SOLN,SPRAY, NASAL INSTILL 1 SPRAY IN NOSE ONCE FOR SUSPECTE D OPIOID OVERDOSE DO NOT PRIME OR TEST THE SPRAY DEVICE. GENTLY INSERT TIP INTO ONE NOSTRIL AND PRESS THE PLUNGER FIRMLY TO GIVE THE ENTIRE DOSE. USE EACH DEVICE ONLY ONCE. NASAL HOLD 08/08/2025 [id number] CLIFTON HERNANDEZ MD 2024 2 [facility] NALOXONE HCL 4MG/SPRAY SOLN,SPRAY, NASAL INSTILL 1 SPRAY IN NOSE ONCE FOR SUSPECTE D OPIOID OVERDOSE DO NOT PRIME OR TEST THE SPRAY DEVICE. GENTLY INSERT TIP INTO ONE NOSTRIL AND PRESS THE PLUNGER FIRMLY TO GIVE THE ENTIRE DOSE. USE EACH DEVICE ONLY ONCE. NASAL DISCONT INUED 08/21/2025 [id number] MAC CARTY 2023 2 [facility]AM[facility] NALOXONE HCL 4MG/SPRAY SOLN,SPRAY, NASAL INSTILL 1 SPRAY IN NOSE ONCE DO NOT PRIME OR TEST THE SPRAY DEVICE. GENTLY INSERT TIP INTO ONE NOSTRIL AND PRESS THE PLUNGER FIRMLY TO GIVE THE ENTIRE DOSE. USE EACH DEVICE ONLY ONCE. NASAL DISCONT INUED BY TOPHER R 08/08/2025 [id number] CLIFTON HERNANDEZ MD 2024 2 [facility] PREDNISONE 20MG TAB TAKE TWO TABLETS BY MOUTH ONCE DAILY FOR INFLAMMA TION ORAL 02/27/2025 [id number] VALERI BOLANOS MD 2024 10 [facility] TAMSULOSIN HCL 0.4MG CAP TAKE ONE CAPSULE BY MOUTH EVERY EVENING FOR PROSTATE (TAKE 30 MINUTES AFTER THE SAME MEAL EACH DAY) ORAL ACTIVE 02/08/2026 [id number] 5 LINDA URENA 2024 90 [facility]AM[facility] Allergies, Adverse Reactions, Alerts Combined list of allergies from Department of Defense and Veterans Affairs facilities. It does not include entries that were removed or entered in error. Substance Category Reaction Severity Reaction type Status Date Reported Comments Source CODEINE Propensity to adverse reactions to drug (finding) active 5 [facility] CODEINE Propensity to adverse reactions to drug (finding) Tachycardia active 8 [facility] NAPROXEN Propensity to adverse reactions to drug (finding) active [address] [place] [address] TORADOL Propensity to adverse reactions to drug (finding) active 5 [facility] Immunizations Combined list of available immunizations from the Department of Defense and Veterans Affairs facilities. Immunization Series Date Given Administered By Site Reaction Lot Number CVX Code Drug Machine Lead Burner Status Comments Source COVID-19 (BARTOLO), VECTOR-NR, [id number], PF, 0.5 ML 1 2020 212 complet ed JSN; [id number]; 2 [facility] TDAP 2018 NONE 115 complet ed Booster for Series, [facility] HEP A-HEP B 2018 104 complet ed [facility] HEP A-HEP B 2018 104 complet ed [facility] INFLUENZA, SEASONAL, INJECTABLE, PRESERVATIVE FREE 2015 140 complet ed [facility] PNEUMOCOCCAL CONJUGATE PCV 13 2013 133 complet ed [facility] Results Combined list of recent chemistry, hematology and other laboratory results from Department of Defense and Veterans Affairs, ranging from 15 months to all on record, depending upon the facility. Order Name Results Value Reference Range Date Interpretation Specimen Comments Source ETHYL GLUCURO NIDE,UR INE ([facility]) ETHYL GLUCURONIDE [MASS/VOLUM E] IN URINE <500ng/mL 0 - 499 07/09 Specimen Type: MILAN JOHNSON Comment: ~For Test: GCMS SCREEN,U/M ~amphetamin e metabolites Ethyl glucuronide interpretat ion: Negative Urine drug screen is POSITIVE. The following drugs were detected: Amphetamine Methampheta mine Nicotine Cotinine Caffeine Gabapentin Ibuprofen Ordering Provider: MARCIA CARTY Report Released Date/Time: May 27, 2025 10:11 AM Reporting Lab: [place] [id number] [facility] [address] Performing Lab: [facility] Dept of Pathology [facility] [address] [facility] GCMS SCREEN, U/M TRICYCLIC ANTIDEPRESS ANTS [PRESENCE] IN URINE BY CONFIRMATOR Y METHOD comment 07/09 Specimen Type: URINERANDDagoberto Oglesby Comment: ~For Test: GCMS SCREEN,U/M ~amphetamin e metabolites Ethyl glucuronide interpretat ion: Negative Urine drug screen is POSITIVE. The following drugs were detected: Amphetamine Methampheta mine Nicotine Cotinine Caffeine Gabapentin Ibuprofen Ordering Provider: MARCIA CARTY Report Released Date/Time: May 27, 2025 10:11 AM Reporting Lab: [address] [address] Performing Lab: [facility] Dept of Pathology [facility] [address] [facility]AMED [facility] TOX SCREEN ([facility]) BENZODIAZEP SHERYL [PRESENCE] IN URINE BY SCREEN METHOD Not Detected 07/09 Specimen Type: URINE,RANDO M Comment: ~For Test: GCMS SCREEN,U/M ~amphetamin e metabolites Ordering Provider: MARCIA CARTY Report Released Date/Time: May 27, 2025 10:11 AM Reporting Lab: [address] [address] Performing Lab: [place] [phone] [facility] NAMED [facility] TOX SCREEN ([facility]) CANNABINOID S [PRESENCE] IN URINE BY SCREEN METHOD Not Detected 07/09 Specimen Type: URINE,RANDO M Comment: ~For Test: GCMS SCREEN,U/M ~amphetamin e metabolites Ordering Provider: MARCIA CARTY Report Released Date/Time: May 27, 2025 10:11 AM Reporting Lab: [address] [address] Performing Lab: [address] [address] [facility]AMED [facility] TOX SCREEN ([facility]) OPIATES [PRESENCE] IN URINE BY SCREEN METHOD Not Detected 07/09 Specimen Type: URINE,RANDO M Comment: ~For Test: GCMS SCREEN,U/M ~amphetamin e metabolites Ordering Provider: MARCIA CARTY Report Released Date/Time: May 27, 2025 10:11 AM Reporting Lab: [address] [address] Performing Lab: [address] [address] [facility] NAMED [facility] TOX SCREEN ([facility]) AMPHETAMINE S [PRESENCE] IN URINE DETECTED 07/09 H Specimen Type: URINE,RANDO M Comment: ~For Test: GCMS SCREEN,U/M ~amphetamin e metabolites Ordering Provider: MARCIA CARTY Report Released Date/Time: May 27, 2025 10:11 AM Reporting Lab: [address] [address] Performing Lab: [address] [address] [facility]AM[facility] TOX SCREEN ([facility]) BARBITURATE S [PRESENCE] IN URINE BY SCREEN METHOD Not Detected 07/09 Specimen Type: URINE,RANDO M Comment: ~For Test: GCMS SCREEN,U/M ~amphetamin e metabolites Ordering Provider: MARCIA CARTY Report Released Date/Time: May 27, 2025 10:11 AM Reporting Lab: [address] [address] Performing Lab: [address] [address] [facility] TOX SCREEN ([facility]) COCAINE [PRESENCE] IN URINE DETECTED 07/09 H Specimen Type: URINE,RANDO M Comment: ~For Test: GCMS SCREEN,U/M ~amphetamin e metabolites Ordering Provider: MARCIA CARTY Report Released Date/Time: May 27, 2025 10:11 AM Reporting Lab: [address] [address] Performing Lab: [address] [address] [facility] TOX SCREEN ([facility]) CREATININE [MASS/VOLUM E] IN URINE 217 mg/dL 07/09 Specimen Type: URINE,RANDO M Comment: ~For Test: GCMS SCREEN,U/M ~amphetamin e metabolites Ordering Provider: MARCIA CARTY Report Released Date/Time: May 27, 2025 10:11 AM Reporting Lab: [address] [address] Performing Lab: [address] [address] [facility] NAMED [facility] TOX SCREEN ([facility]) METHADONE [PRESENCE] IN URINE Not Detected 07/09 Specimen Type: URINE,RANDO M Comment: ~For Test: GCMS SCREEN,U/M ~amphetamin e metabolites Ordering Provider: MARCIA CARTY Report Released Date/Time: May 27, 2025 10:11 AM Reporting Lab: [address] [address] Performing Lab: [address] [address] FORMERLY NAMED [facility] TOX SCREEN ([facility]) OXYCODONE [PRESENCE] IN URINE Not Detected 07/09 Specimen Type: URINE,RANDO M Comment: ~For Test: GCMS SCREEN,U/M ~amphetamin e metabolites Ordering Provider: MARCIA CARTY Report Released Date/Time: May 27, 2025 10:11 AM Reporting Lab: [address] [address] Performing Lab: [address] [address] FORMERLY NAMED [facility] TOX SCREEN ([facility]) BUPRENORPHI NE [PRESENCE] IN URINE DETECTED 07/09 H Specimen Type: URINE,RANDO M Comment: ~For Test: GCMS SCREEN,U/M ~amphetamin e metabolites Ordering Provider: MARCIA CARTY Report Released Date/Time: May 27, 2025 10:11 AM Reporting Lab: [address] [address] Performing Lab: [address] [address] FORMERLY NAMED [facility] TOX SCREEN ([facility]) FENTANYL [PRESENCE] IN URINE Not Detected 07/09 Specimen Type: URINE,RANDO M Comment: ~For Test: GCMS SCREEN,U/M ~amphetamin e metabolites Ordering Provider: MARCIA CARTY Report Released Date/Time: May 27, 2025 10:11 AM Reporting Lab: [address] [address] Performing Lab: [address] [address] FORMERLY NAMED [facility] TOX SCREEN ([facility]) BENZODIAZEP SHERYL [PRESENCE] IN URINE BY SCREEN METHOD Not Detected 04/29 Specimen Type: URINE,RANDO M No comment entered. Ordering Provider: MARCIA CARTY Report Released Date/Time: Apr 22, 2025 10:03 AM Reporting Lab: [address] [address] Performing Lab: [address] [address] FORMERLY NAMED [facility] TOX SCREEN ([facility]) CANNABINOID S [PRESENCE] IN URINE BY SCREEN METHOD Not Detected 04/29 Specimen Type: URINE,RANDO M No comment entered. Ordering Provider: MARCIA CARTY Report Released Date/Time: Apr 22, 2025 10:03 AM Reporting Lab: [address] [address] Performing Lab: [address] [address] FORMERLY NAMED [facility] TOX SCREEN ([facility]) OPIATES [PRESENCE] IN URINE BY SCREEN METHOD DETECTED 04/29 H Specimen Type: URINE,RANDO M No comment entered. Ordering Provider: MARCIA CARTY Report Released Date/Time: Apr 22, 2025 10:03 AM Reporting Lab: [address] [address] Performing Lab: [address] [address] FORMERLY NAMED [facility] TOX SCREEN ([facility]) AMPHETAMINE S [PRESENCE] IN URINE DETECTED 04/29 H Specimen Type: URINE,RANDO M No comment entered. Ordering Provider: MARCIA CARTY Report Released Date/Time: Apr 22, 2025 10:03 AM Reporting Lab: [address] [address] Performing Lab: [address] [phone] FORMERLY NAMED [facility] TOX SCREEN ([facility]) BARBITURATE S [PRESENCE] IN URINE BY SCREEN METHOD Not Detected 04/29 Specimen Type: URINE,RANDO M No comment entered. Ordering Provider: MARCIA CARTY Report Released Date/Time: Apr 22, 2025 10:03 AM Reporting Lab: [address] [address] Performing Lab: [address] [address] FORMERLY NAMED [facility] TOX SCREEN ([facility]) COCAINE [PRESENCE] IN URINE Not Detected 04/29 Specimen Type: URINE,RANDO M No comment entered. Ordering Provider: MARCIA CARTY Report Released Date/Time: Apr 22, 2025 10:03 AM Reporting Lab: [address] [address] Performing Lab: [address] [address] FORMERLY NAMED [facility] TOX SCREEN ([facility]) CREATININE [MASS/VOLUM E] IN URINE 96 mg/dL 04/29 Specimen Type: URINE,RANDO M No comment entered. Ordering Provider: MARCIA CARTY Report Released Date/Time: Apr 22, 2025 10:03 AM Reporting Lab: [address] [address] Performing Lab: [address] [address] FORMER[facility] NAMED [facility] TOX SCREEN ([facility]) METHADONE [PRESENCE] IN URINE Not Detected 04/29 Specimen Type: URINE,RANDO M No comment entered. Ordering Provider: MARCIA CARTY Report Released Date/Time: Apr 22, 2025 10:03 AM Reporting Lab: [place] [phone] Performing Lab: [place] [phone] [place] [address] TOX SCREEN ([facility]) OXYCODONE [PRESENCE] IN URINE DETECTED 04/29 H Specimen Type: URINE,RANDO M No comment entered. Ordering Provider: MARCIA CARTY Report Released Date/Time: Apr 22, 2025 10:03 AM Reporting Lab: [place] [phone] Performing Lab: [place] [phone] [place] [address] TOX SCREEN ([facility]) BUPRENORPHI NE [PRESENCE] IN URINE DETECTED 04/29 H Specimen Type: URINE,RANDO M No comment entered. Ordering Provider: MARCIA CARTY Report Released Date/Time: Apr 22, 2025 10:03 AM Reporting Lab: [address] [address] Performing Lab: [address] [phone] [place] [address] TOX SCREEN ([facility]) FENTANYL [PRESENCE] IN URINE Not Detected 04/29 Specimen Type: URINE,RANDO M No comment entered. Ordering Provider: MARCIA CARTY Report Released Date/Time: Apr 22, 2025 10:03 AM Reporting Lab: [address] [address] Performing Lab: [address] [address] FORMER[facility] NAMED [facility] GCMS SCREEN, U/M TRICYCLIC ANTIDEPRESS ANTS [PRESENCE] IN URINE BY CONFIRMATOR Y METHOD comment 02/25 Specimen Type: URINE,RANDO M Comment: ~For Test: GCMS SCREEN,U/M ~amphetamin e metabolites Urine drug screen is POSITIVE. The following drugs were detected: Gabapentin Methampheta mine Amphetamine Fentanyl Nicotine Cotinine Ordering Provider: MARCIA CARTY Report Released Date/Time: Feb 25, 2025 10:34 AM Reporting Lab: [address] [address] Performing Lab: [facility] Dept of Pathology [facility] [address] FORMERLY NAMED [facility] TOX SCREEN ([facility]) BENZODIAZEP SHERYL [PRESENCE] IN URINE BY SCREEN METHOD Not Detected 02/25 Specimen Type: URINE,RANDO M Comment: ~For Test: GCMS SCREEN,U/M ~amphetamin e metabolites Ordering Provider: MARCIA CARTY Report Released Date/Time: Feb 25, 2025 10:34 AM Reporting Lab: [address] [address] Performing Lab: [address] [address] FORMERLY NAMED [facility] TOX SCREEN ([facility]) CANNABINOID S [PRESENCE] IN URINE BY SCREEN METHOD Not Detected 02/25 Specimen Type: URINE,RANDO M Comment: ~For Test: GCMS SCREEN,U/M ~amphetamin e metabolites Ordering Provider: MARCIA CARTY Report Released Date/Time: Feb 25, 2025 10:34 AM Reporting Lab: [address] [address] Performing Lab: [address] [address] FORMERLY NAMED [facility] TOX SCREEN ([facility]) OPIATES [PRESENCE] IN URINE BY SCREEN METHOD Not Detected 02/25 Specimen Type: URINE,RANDO M Comment: ~For Test: GCMS SCREEN,U/M ~amphetamin e metabolites Ordering Provider: MARCIA CARTY Report Released Date/Time: Feb 25, 2025 10:34 AM Reporting Lab: [address] [address] Performing Lab: [address] [address] FORMERLY NAMED [facility] TOX SCREEN ([facility]) AMPHETAMINE S [PRESENCE] IN URINE DETECTED 02/25 H Specimen Type: URINE,RANDO M Comment: ~For Test: GCMS SCREEN,U/M ~amphetamin e metabolites Ordering Provider: MARCIA CARTY Report Released Date/Time: Feb 25, 2025 10:34 AM Reporting Lab: [address] [address] Performing Lab: [address] [address] FORMERLY NAMED [facility] TOX SCREEN ([facility]) BARBITURATE S [PRESENCE] IN URINE BY SCREEN METHOD Not Detected 02/25 Specimen Type: URINE,RANDO M Comment: ~For Test: GCMS SCREEN,U/M ~amphetamin e metabolites Ordering Provider: MARCIA CARTY Report Released Date/Time: Feb 25, 2025 10:34 AM Reporting Lab: [address] [address] Performing Lab: [place] [phone] [place] [address] TOX SCREEN ([facility]) COCAINE [PRESENCE] IN URINE Not Detected 02/25 Specimen Type: URINE,RANDO M Comment: ~For Test: GCMS SCREEN,U/M ~amphetamin e metabolites Ordering Provider: MARCIA CARTY Report Released Date/Time: Feb 25, 2025 10:34 AM Reporting Lab: [address] [address] Performing Lab: [address] [address] FORMERLY NAMED [facility] TOX SCREEN ([facility]) CREATININE [MASS/VOLUM E] IN URINE 209 mg/dL 02/25 Specimen Type: URINE,RANDO M Comment: ~For Test: GCMS SCREEN,U/M ~amphetamin e metabolites Ordering Provider: MARCIA CARTY Report Released Date/Time: Feb 25, 2025 10:34 AM Reporting Lab: [address] [address] Performing Lab: [address] [address] FORMERLY NAMED [facility] TOX SCREEN ([facility]) METHADONE [PRESENCE] IN URINE Not Detected 02/25 Specimen Type: URINE,RANDO M Comment: ~For Test: GCMS SCREEN,U/M ~amphetamin e metabolites Ordering Provider: MARCIA CARTY Report Released Date/Time: Feb 25, 2025 10:34 AM Reporting Lab: [address] [address] Performing Lab: [address] [address] FORMERLY NAMED [facility] TOX SCREEN ([facility]) OXYCODONE [PRESENCE] IN URINE Not Detected 02/25 Specimen Type: URINE,RANDO M Comment: ~For Test: GCMS SCREEN,U/M ~amphetamin e metabolites Ordering Provider: MARCIA CARTY Report Released Date/Time: Feb 25, 2025 10:34 AM Reporting Lab: [address] [address] Performing Lab: [place] [phone] FORMERLY NAMED [facility] TOX SCREEN ([facility]) BUPRENORPHI NE [PRESENCE] IN URINE DETECTED 02/25 H Specimen Type: URINE,RANDO M Comment: ~For Test: GCMS SCREEN,U/M ~amphetamin e metabolites Ordering Provider: MARCIA CARTY Report Released Date/Time: Feb 25, 2025 10:34 AM Reporting Lab: [address] [address] Performing Lab: [address] [address] FORMERLY NAMED [facility] TOX SCREEN ([facility]) FENTANYL [PRESENCE] IN URINE DETECTED 02/25 H Specimen Type: URINE,RANDO M Comment: ~For Test: GCMS SCREEN,U/M ~amphetamin e metabolites Ordering Provider: MARCIA CARTY Report Released Date/Time: Feb 25, 2025 10:34 AM Reporting Lab: [address] [address] Performing Lab: [address] [address] FORMERLY NAMED [facility] GCMS SCREEN, U/M TRICYCLIC ANTIDEPRESS ANTS [PRESENCE] IN URINE BY CONFIRMATOR Y METHOD comment 01/28 Specimen Type: URINE,RANDO M Comment: ~For Test: GCMS SCREEN,U/M ~amphetamin e metatolites Urine drug screen is POSITIVE. The following drugs were detected: Methampheta mine Amphetamine Gabapentin Nicotine Cotinine Caffeine Ordering Provider: MARCIA CARTY Report Released Date/Time: Jan 28, 2025 08:56 AM Reporting Lab: [place] [phone] Performing Lab: [facility] Dept of Pathology [facility] [address] FORMERLY NAMED [facility] TOX SCREEN ([facility]) BENZODIAZEP SHERYL [PRESENCE] IN URINE BY SCREEN METHOD Not Detected 01/28 Specimen Type: URINE,RANDO M Comment: ~For Test: GCMS SCREEN,U/M ~amphetamin e metatolites Ordering Provider: MARCIA CARYT Report Released Date/Time: Dec 31, 2024 02:54 PM Reporting Lab: [place] [phone] Performing Lab: [place] [phone] FORMERLY NAMED [facility] TOX SCREEN ([facility]) CANNABINOID S [PRESENCE] IN URINE BY SCREEN METHOD Not Detected 01/28 Specimen Type: URINE,RANDO M Comment: ~For Test: GCMS SCREEN,U/M ~amphetamin e metatolites Ordering Provider: MARCIA CARTY Report Released Date/Time: Dec 31, 2024 02:54 PM Reporting Lab: [place] [phone] Performing Lab: [place] [phone] [place] [address] TOX SCREEN ([facility]) OPIATES [PRESENCE] IN URINE BY SCREEN METHOD Not Detected 01/28 Specimen Type: URINE,RANDO M Comment: ~For Test: GCMS SCREEN,U/M ~amphetamin e metatolites Ordering Provider: MARCIA CARTY Report Released Date/Time: Dec 31, 2024 02:54 PM Reporting Lab: [address] [address] Performing Lab: [place] [phone] FORMERLY NAMED [facility] TOX SCREEN ([facility]) AMPHETAMINE S [PRESENCE] IN URINE DETECTED 01/28 H Specimen Type: URINE,RANDO M Comment: ~For Test: GCMS SCREEN,U/M ~amphetamin e metatolites Ordering Provider: MARCIA CARTY Report Released Date/Time: Dec 31, 2024 02:54 PM Reporting Lab: [place] [phone] Performing Lab: [place] [phone] FORMERLY NAMED [facility] TOX SCREEN ([facility]) BARBITURATE S [PRESENCE] IN URINE BY SCREEN METHOD Not Detected 01/28 Specimen Type: URINE,RANDO M Comment: ~For Test: GCMS SCREEN,U/M ~amphetamin e metatolites Ordering Provider: MARCIA CARTY Report Released Date/Time: Dec 31, 2024 02:54 PM Reporting Lab: [address] [address] Performing Lab: [place] [phone] FORMERLY NAMED [facility] TOX SCREEN ([facility]) COCAINE [PRESENCE] IN URINE Not Detected 01/28 Specimen Type: URINE,RANDO M Comment: ~For Test: GCMS SCREEN,U/M ~amphetamin e metatolites Ordering Provider: MARCIA CARTY Report Released Date/Time: Dec 31, 2024 02:54 PM Reporting Lab: [address] [address] Performing Lab: [place] [phone] FORMERLY NAMED [facility] TOX SCREEN ([facility]) CREATININE [MASS/VOLUM E] IN URINE 358 mg/dL 01/28 Specimen Type: URINE,RANDO M Comment: ~For Test: GCMS SCREEN,U/M ~amphetamin e metatolites Ordering Provider: MARCIA CARTY Report Released Date/Time: Dec 31, 2024 02:54 PM Reporting Lab: [address] [address] Performing Lab: [place] [phone] FORMERLY NAMED [facility] TOX SCREEN ([facility]) METHADONE [PRESENCE] IN URINE Not Detected 01/28 Specimen Type: URINE,RANDO M Comment: ~For Test: GCMS SCREEN,U/M ~amphetamin e metatolites Ordering Provider: MARCIA CARTY Report Released Date/Time: Dec 31, 2024 02:54 PM Reporting Lab: [address] [address] Performing Lab: [place] [phone] [place] [address] TOX SCREEN ([facility]) OXYCODONE [PRESENCE] IN URINE Not Detected 01/28 Specimen Type: URINE,RANDO M Comment: ~For Test: GCMS SCREEN,U/M ~amphetamin e metatolites Ordering Provider: MARCIA CARTY Report Released Date/Time: Dec 31, 2024 02:54 PM Reporting Lab: [address] [address] Performing Lab: [place] [phone] [place] [address] TOX SCREEN ([facility]) BUPRENORPHI NE [PRESENCE] IN URINE DETECTED 01/28 H Specimen Type: URINE,RANDO M Comment: ~For Test: GCMS SCREEN,U/M ~amphetamin e metatolites Ordering Provider: MARCIA CARTY Report Released Date/Time: Dec 31, 2024 02:54 PM Reporting Lab: [address] [address] Performing Lab: [place] [phone] [place] [address] TOX SCREEN ([facility]) FENTANYL [PRESENCE] IN URINE Not Detected 01/28 Specimen Type: URINE,RANDO M Comment: ~For Test: GCMS SCREEN,U/M ~amphetamin e metatolites Ordering Provider: MARCIA CARTY Report Released Date/Time: Dec 31, 2024 02:54 PM Reporting Lab: [address] [address] Performing Lab: [address] [address] [facility]MER[facility] NAMED [facility] GCMS SCREEN, U/M TRICYCLIC ANTIDEPRESS ANTS [PRESENCE] IN URINE BY CONFIRMATOR Y METHOD comment 12/31 Specimen Type: URINE,RANDO M Comment: ~For Test: GCMS SCREEN,U/M ~amphetamin e metabolites Urine drug screen is POSITIVE. The following drugs were detected: Methampheta mine Amphetamine Gabapentin Naproxen Nicotine Cotinine Caffeine Ordering Provider: MARCIA CARTY Report Released Date/Time: Nov 26, 2024 09:15 AM Reporting Lab: [address] [address] Performing Lab: [facility] Dept of Pathology [facility] [address] FORMERLY NAMED [facility] TOX SCREEN ([facility]) BENZODIAZEP SHERYL [PRESENCE] IN URINE BY SCREEN METHOD Not Detected 12/31 Specimen Type: URINE,RANDO M Comment: ~For Test: GCMS SCREEN,U/M ~amphetamin e metabolites Ordering Provider: MARCIA CARTY Report Released Date/Time: Nov 26, 2024 09:15 AM Reporting Lab: [address] [address] Performing Lab: [place] [phone] FORMERLY NAMED [facility] TOX SCREEN ([facility]) CANNABINOID S [PRESENCE] IN URINE BY SCREEN METHOD Not Detected 12/31 Specimen Type: URINE,RANDO M Comment: ~For Test: GCMS SCREEN,U/M ~amphetamin e metabolites Ordering Provider: MARCIA CARTY Report Released Date/Time: Nov 26, 2024 09:15 AM Reporting Lab: [address] [address] Performing Lab: [place] [phone] FORMERLY NAMED [facility] TOX SCREEN ([facility]) OPIATES [PRESENCE] IN URINE BY SCREEN METHOD Not Detected 12/31 Specimen Type: URINE,RANDO M Comment: ~For Test: GCMS SCREEN,U/M ~amphetamin e metabolites Ordering Provider: MARCIA CARTY Report Released Date/Time: Nov 26, 2024 09:15 AM Reporting Lab: [address] [address] Performing Lab: [address] [address] FORMERLY NAMED [facility] TOX SCREEN ([facility]) AMPHETAMINE S [PRESENCE] IN URINE Not Detected 12/31 Specimen Type: URINE,RANDO M Comment: ~For Test: GCMS SCREEN,U/M ~amphetamin e metabolites Ordering Provider: MARCIA CARTY Report Released Date/Time: Nov 26, 2024 09:15 AM Reporting Lab: [address] [address] Performing Lab: [place] [phone] [place] [address] TOX SCREEN ([facility]) BARBITURATE S [PRESENCE] IN URINE BY SCREEN METHOD Not Detected 12/31 Specimen Type: URINE,RANDO M Comment: ~For Test: GCMS SCREEN,U/M ~amphetamin e metabolites Ordering Provider: MARCIA CARTY Report Released Date/Time: Nov 26, 2024 09:15 AM Reporting Lab: [address] [address] Performing Lab: [address] TOX SCREEN ([facility]) COCAINE [PRESENCE] IN URINE Not Detected 12/31 Specimen Type: URINE,RANDO M Comment: ~For Test: GCMS SCREEN,U/M ~amphetamin e metabolites Ordering Provider: MARCIA CARTY Report Released Date/Time: Nov 26, 2024 09:15 AM Reporting Lab: [address] [address] Performing Lab: [place] [phone] TOX SCREEN ([facility]) CREATININE [MASS/VOLUM E] IN URINE 28 mg/dL 12/31 Specimen Type: URINE,RANDO M Comment: ~For Test: GCMS SCREEN,U/M ~amphetamin e metabolites Ordering Provider: MARCIA CARTY Report Released Date/Time: Nov 26, 2024 09:15 AM Reporting Lab: [address] [address] Performing Lab: [place] [phone] [facility]MERLY NAMED [facility] TOX SCREEN ([facility]) METHADONE [PRESENCE] IN URINE Not Detected 12/31 Specimen Type: URINE,RANDO M Comment: ~For Test: GCMS SCREEN,U/M ~amphetamin e metabolites Ordering Provider: MARCIA CARTY Report Released Date/Time: Nov 26, 2024 09:15 AM Reporting Lab: [address] [address] Performing Lab: [address] [address] FORMERLY NAMED [facility] TOX SCREEN ([facility]) OXYCODONE [PRESENCE] IN URINE Not Detected 12/31 Specimen Type: URINE,RANDDgaoberto M Comment: ~For Test: GCMS SCREEN,U/M ~amphetamin e metabolites Ordering Provider: MARCIA CARTY Report Released Date/Time: Nov 26, 2024 09:15 AM Reporting Lab: [address] [address] Performing Lab: [place] [phone] FORMERLY NAMED [facility] TOX SCREEN ([facility]) BUPRENORPHI NE [PRESENCE] IN URINE DETECTED 12/31 H Specimen Type: URINE,MILAN M Comment: ~For Test: GCMS SCREEN,U/M ~amphetamin e metabolites Ordering Provider: MARCIA CARTY Report Released Date/Time: Nov 26, 2024 09:15 AM Reporting Lab: [address] [address] Performing Lab: [address] [address] FORMERLY NAMED [facility] TOX SCREEN ([facility]) FENTANYL [PRESENCE] IN URINE Not Detected 12/31 Specimen Type: URINE,RANDO M Comment: ~For Test: GCMS SCREEN,U/M ~amphetamin e metabolites Ordering Provider: MARCIA CARTY Report Released Date/Time: Nov 26, 2024 09:15 AM Reporting Lab: [address] [address] Performing Lab: [address] [address] [facility]LY NAMED [facility] Vital Signs Combined list of inpatient and outpatient Vital Signs from Department of Defense and Veterans Affairs, ranging from 12 months to all on record, depending upon the facility. Vital Sign Value Date Comments Source SYSTOLIC BLOOD PRESSURE 203 04/29/2025 10:22:00 [facility]MER[facility] NAMED [facility] DIASTOLIC BLOOD PRESSURE 98 04/29/2025 10:22:00 [facility]MERLY NAMED [facility] TEMPERATURE 97.8 04/29/2025 10:22:00 [facility]MERLY NAMED [facility] PULSE 62 04/29/2025 10:22:00 ED [facility] RESPIRATION 18 04/29/2025 10:22:00 [facility]MER[facility] NAMED [facility] WEIGHT 164.46 02/07/2025 08:05:22 ED [facility] BMI 22 kg/m2 02/07/2025 08:05:22 ED [facility] SYSTOLIC BLOOD PRESSURE 184 01/28/2025 11:59:00 [facility]MER[facility] NAMED [facility] DIASTOLIC BLOOD PRESSURE 93 01/28/2025 11:59:00 FORMERLY NAMED [facility] PAIN 8 01/28/2025 11:59:00 ED [facility] TEMPERATURE 97.88 01/28/2025 11:59:00 [facility]MER[facility] NAMED [facility] PULSE 78 01/28/2025 11:59:00 ED [facility] RESPIRATION 16 01/28/2025 11:59:00 [facility]MERLY NAMED [facility] Encounters Combined list of: 1) Encounters from Department of Veterans Affairs facilities going backup to the last 18 months, not all [place] inpatient encounters are included; 2) Encounters from the Department of Defense facilities going backup to 280 months. Location Location Details Encounter Type Encounter Number Reason For Visit Attending Provider ADM Date DC Date Status Disposition Source FORMER[facility] NAMED [facility] OFFICE O/P EST MOD 30 MIN [id number] Diagnos is: ICD-10- CM F11.21 Opioid depende nce, in remissi on MARCIA CARTY 01/21 [facility] Outpatient Encounter [id number] 01/21 [facility] Outpatient Encounter [id number] 01/24 [facility] Outpatient Encounter [id number] LORAINE PIRES 01/30 [facility] Outpatient Encounter [id number] 02/18 [facility] Outpatient Encounter [id number] 02/18 [facility] Outpatient Encounter [id number] Diagnos is: ICD-10- CM F11.21 Opioid depende nce, in remissi on MARCIA CARTY 02/19 [facility] Outpatient Encounter [id number] 02/19 [facility] OFFICE O/P EST MOD 30 MIN [id number] Diagnos is: ICD-10- CM F11.21 Opioid depende nce, in remissi on MACHELLEMARCIA DANIKA 03/05 [facility] DOM PSYCHOANAL YSIS [id number] Diagnos is: ICD-10- CM 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 Outpatient Encounter [id number] MAYE ALVARADO 03/14 [facility] Outpatient Encounter [id number] MAYE ALVARADO 03/15 [facility] Outpatient Encounter [id number] LOPEZ MCKEON 03/19 [facility] Outpatient Encounter [id number] 04/01 DANICA BRAGA [facility] OFFICE O/P EST MOD 30 MIN [id number] Diagnos is: ICD-10- CM F11.21 Opioid depende nce, in remissi on MARCIA CARTY DANIKA 04/02 [facility] Outpatient Encounter [id number] [id number] 04/16 [facility] Outpatient Encounter [id number] [id number] 5 05/01 DANICA BRAGA [facility] Outpatient Encounter [id number] [id number] 05/07 [facility] Outpatient Encounter 95284-3.50 [id number] 05/13 [facility] Outpatient Encounter 52525-2.50 [id number] 05/17 [facility] Outpatient Encounter 71054-4.50 [id number] 05/17 [facility] Outpatient Encounter 94416-9.50 [id number] 05/17 [facility] Outpatient Encounter [id number] [id number] 05/21 [facility] Outpatient Encounter 34529-1.50 [id number] 05/22 [facility] CASE MANAGEMENT [id number] [id number] Diagnos is: ICD-10- CM F14.20 Cocaine depende nce, uncompl icated ESTELLA BROOKS Mendel 05/22 [facility] PSYCH DIAG EVAL W/MED SRVCS 44773-3.50 [id number] Diagnos is: ICD-10- CM F11.21 Opioid depende nce, in remissi on KARMOMILDRED MD 05/22 [facility] Outpatient Encounter [id number] [id number] 05/22 [facility] Outpatient Encounter [id number] [id number] 05/22 [facility] Outpatient Encounter 11174-9.50 [id number] 05/23 [facility] Outpatient Encounter [id number] [id number] 06/05 [facility] Outpatient Encounter 53790-7.50 [id number] 06/17 [facility] OFF/OP EST MAY X REQ PHY/QHP [id number] [id number] Diagnos is: ICD-10- CM F11.21 Opioid depende nce, in remissi on NOY LOMBARDO Brooks 06/28 [facility] Outpatient Encounter [id number] [id number] 06/28 [facility] Outpatient Encounter [id number] [id number] 06/28 [facility] Outpatient Encounter [id number] [id number] 06/28 [facility] Outpatient Encounter 26046-3.50 [id number] 06/28 [facility] Outpatient Encounter [id number] [id number] 07/09 [facility] Outpatient Encounter 59524-4.50 [id number] 07/23 [facility] Outpatient Encounter [id number] [id number] 07/26 [facility] Outpatient Encounter [id number] [id number] 07/26 [facility] Outpatient Encounter [id number] [id number] 08/02 [facility] OFFICE O/P EST MOD 30 MIN [id number] [id number] Diagnos is: ICD-10- CM F11.21 Opioid depende nce, in remissi on CARTY,MARCIA GARNICA 08/06 [facility] Outpatient Encounter [id number] [id number] 08/06 [facility] Outpatient Encounter [id number] [id number] 08/08 [facility] OFFICE O/P EST MOD 30 MIN [id number] [id number] Diagnos is: ICD-10- CM F11.21 Opioid depende nce, in remissi on MARCIA CARTY 08/20 [facility] Outpatient Encounter [id number] [id number] 08/20 [facility] Outpatient Encounter [id number] [id number] 08/21 [facility] Outpatient Encounter [id number] [id number] 08/21 [facility] Outpatient Encounter [id number] [id number] 09/03 [facility] Outpatient Encounter [id number] [id number] 09/16 [facility] Outpatient Encounter [id number] [id number] 09/17 [facility] Outpatient Encounter [id number] [id number] 09/26 [facility] OFFICE O/P EST MOD 30 MIN [id number] [id number] Diagnos is: ICD-10- CM F11.20 Opioid depende nce, uncompl icated LAVERN POWELL 09/26 [facility] CASE MANAGEMENT [id number] [id number] Diagnos is: ICD-10- CM F14.20 Cocaine depende nce, uncompl icated ESTELLA BROOKS 09/26 [facility] Outpatient Encounter [id number] [id number] 10/14 [facility] Outpatient Encounter [id number] [id number] 10/16 [facility] Outpatient Encounter [id number] [id number] Diagnos is: ICD-10- CM F11.21 Opioid depende nce, in remissi on MARCIA CARTY DANIKA 10/22 [facility] OFFICE O/P EST MOD 30 MIN [id number] [id number] Diagnos is: ICD-10- CM F11.21 Opioid depende nce, in remissi on MARCIA CARTY DANIKA 10/29 [facility] Outpatient Encounter [id number] [id number] 10/29 [facility] DOM SUICIDE RISK ASSESSED [id number] [id number] Diagnos is: ICD-10- CM F10.20 Alcohol depende nce, uncompl icated JENNYMAYE NEWTON 11/04 [facility] Outpatient Encounter [id number] [id number] JENNYMAYE ARIAS AMAN 11/04 [facility] Outpatient Encounter [id number] [id number] 11/15 [facility] DOM OFF/OP EST MAY X REQ PHY/QHP [id number] [id number] Diagnos is: ICD-10- CM Z13.9 Encount er for screeni ng, unspeci fied Brooks TINAJERO 11/19 [facility] Outpatient Encounter [id number] [id number] 11/21 [facility] Outpatient Encounter [id number] [id number] 11/22 [facility] OFFICE O/P EST SF 10 MIN [id number] [id number] Diagnos is: ICD-10- CM F11.21 Opioid depende nce, in remissi on MARCIA CARTY DANIKA 11/26 [facility] Outpatient Encounter [id number] [id number] 11/28 [facility] Outpatient Encounter [id number] [id number] MAYE ALVARADO AMAN 12/05 [facility] Outpatient Encounter [id number] [id number] 12/12 [facility] Outpatient Encounter [id number] [id number] 12/24 [facility] Outpatient Encounter [id number] [id number] 12/24 [facility] Outpatient Encounter [id number] [id number] 12/24 [facility] Outpatient Encounter [id number] [id number] 12/25 [facility] Outpatient Encounter [id number] [id number] 12/26 [facility] Outpatient Encounter [id number] [id number] 12/27 [facility] CASE MANAGEMENT [id number] [id number] Diagnos is: ICD-10- CM F14.20 Cocaine depende nce, uncompl icated TODDESTELLA Oglesby 12/27 [facility] Outpatient Encounter [id number] [id number] 12/31 [facility] OFFICE O/P EST MOD 30 MIN [id number] [id number] Diagnos is: ICD-10- CM F11.21 Opioid depende nce, in remissi on CARTYMARCIA 12/31 [facility] Outpatient Encounter [id number] [id number] 01/01 [facility] SUICIDE RISK ASSESSED [id number] [id number] Diagnos is: ICD-10- CM F15.20 Other stimula nt depende nce, uncompl icated JENNY,MAYE NEWTON 01/07 [facility] FOR[facility] NAMED [facility] Outpatient Encounter [id number] [id number] 01/16 [facility] OFFICE O/P EST MOD 30 MIN [id number] [id number] Diagnos is: ICD-10- CM F11.21 Opioid depende nce, in remissi on MARCIA CARTY 01/28 [facility] EMERGENCY DEPT VISIT LOW MDM [id number] [id number] Diagnos is: ICD-10- CM S83.90X A Sprain of unspeci fied site of unspeci fied knee, init cherir BERNICE BOLANOS MD 01/28 [facility] OFFICE O/P EST MOD 30 MIN [id number] [id number] Diagnos is: ICD-10- CM F19.20 Other psychoa ctive substan ce depende nce, uncompl icated SHAKA DUONG 02/07 [facility] Outpatient Encounter [id number] [id number] KHURRAM ARENAS 02/07 [facility] Outpatient Encounter [id number] [id number] 02/07 [facility] Outpatient Encounter [id number] [id number] 02/13 [facility] Outpatient Encounter [id number] [id number] 02/13 [facility] Outpatient Encounter [id number] [id number] 02/13 [facility] OFFICE O/P EST MOD 30 MIN [id number] [id number] Diagnos is: ICD-10- CM F11.21 Opioid depende nce, in remissi on MARCIA CARTY 02/25 [facility] Outpatient Encounter [id number] [id number] 02/27 [facility] Outpatient Encounter [id number] [id number] 1 03/20 [facility] Outpatient Encounter [id number] [id number] 7 03/20 [facility] OFFICE O/P EST MOD 30 MIN [id number] [id number] Diagnos is: ICD-10- CM F11.21 Opioid depende nce, in remissi on MARCIA CARTY DANIKA 03/25 [facility] MTMS BY PHARM HARNESS 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 15 MIN [id number] [id number] Diagnos is: ICD-10- CM 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 TARI AMES 03/25 [facility] Outpatient Encounter [id number] [id number] 04/22 [facility] Outpatient Encounter [id number] [id number] 04/23 [facility] Outpatient Encounter [id number] [id number] 04/23 [facility] CASE MANAGEMENT [id number] [id number] Diagnos is: ICD-10- CM F11.20 Opioid depende nce, uncompl icated TODDESTELLA Oglesby 04/23 [facility] OFFICE O/P EST MOD 30 MIN [id number] [id number] Diagnos is: ICD-10- CM F11.21 Opioid depende nce, in remissi on MARCIA CARTY DANIKA 04/29 [facility] EMERGENCY DEPT VISIT MOD MDM [id number] [id number] Diagnos is: ICD-10- CM L03.119 Celluli tis of unspeci fied part of limb JAGDEEP HARE MD 04/29 [facility] Outpatient Encounter [id number] [id number] 04/30 [facility] Outpatient Encounter [id number] [id number] 04/30 [facility] Outpatient Encounter [id number] [id number] 04/30 [facility] OFFICE O/P EST MOD 30 MIN [id number] [id number] Diagnos is: ICD-10- CM F11.21 Opioid depende nce, in remissi on MARCIA CARTY DANIKA 05/27 [facility] Outpatient Encounter [id number] [id number] 06/24 [facility] Outpatient Encounter [id number] [id number] 06/25 [facility] CASE MANAGEMENT [id number] [id number] Diagnos is: ICD-10- CM F11.20 Opioid depende nce, uncompl icated ESTELLA BROOSK ANTHONY Mendel 07/09 [facility] OFFICE O/P EST LOW 20 MIN [id number] [id number] Diagnos is: ICD-10- CM F11.21 Opioid depende nce, in remissi on MILDRED HERNANDEZ MD 07/09 [facility] NAMED [facility] Social History Combined list of available smoking, tobacco, and other social history from Department of Defense and Veterans Affairs facilities. Social History Type Response Date Comment Source Tobacco smoking status UTIS VA-TOBACCO NEVER USED OTHER TYPE 02/07/2025 [facility] N[facility]ED [facility] History of tobacco use VA-TOBACCO SCREEN FOLLOW-UP 02/07/2025 [facility] NAMED [facility] History of tobacco use VA-TOBACCO USER EVERY DAY 02/07/2023 [facility] NAMED [facility] History of tobacco use DENIED MEDS TOBACCO USE INPATIENT [facility] History of tobacco use DENIED MEDS TOBACCO USE INPATIENT 01/15/2023 [facility] History of tobacco use N-CURRENT SMOKER 12/20/2022 [facility] History of tobacco use ORYX ADMIT TOBACCO SCREEN YES 12/20/2022 [facility] History of tobacco use VA-TOBACCO USER EVERY DAY 02/16/2022 [facility] NAMED [facility] History of tobacco use N-CURRENT SMOKER 10/16/2020 [facility] History of tobacco use ORYX ADMIT TOBACCO SCREEN YES 10/16/2020 [facility] History of tobacco use CURRENT TOBACCO USER 06/21/2020 [facility] NAMED [facility] History of tobacco use CURRENT TOBACCO USER 06/09/2020 [facility] NAMED [facility] History of tobacco use MA-TOBACCO USE ACCOUNTING OFFICER NO 07/24/2019 [facility] NAMED [facility] History of tobacco use MA-TOBACCO USER EVERY DAY 11/22/2018 [facility] KARLI Gunter History of tobacco use TOBACCO CURRENT USER 10/22/2018 a pack daily [facility] History of tobacco use TOBACCO CURRENT USER 07/02/2018 a pack a day [facility] History of tobacco use SMOKING CESSATION NO 03/23/2018 [facility] History of tobacco use TOBACCO OFFERRED STOP SMOKING CLINIC 03/16/2018 [facility] NAMED [facility] History of tobacco use CONSIDER SCRIPT FOR SMOKE CESSATION AID 11/27/2017 [facility] History of tobacco use TOBACCO CURRENT USER 01/24/2017 1ppd [facility] History of tobacco use TOBACCO CURRENT USER 12/07/2016 1 ppd [facility] History of tobacco use CURRENT TOBACCO USER 07/27/2016 [facility] History of tobacco use CURRENT TOBACCO USER 06/28/2016 [facility] History of tobacco use TOBACCO CURRENT USER 06/16/2016 1 pack daily [facility] History of tobacco use CURRENT TOBACCO USER 12/02/2015 [facility] History of tobacco use CURRENT SMOKER 11/10/2015 1PPD [facility] History of tobacco use TOBACCO CESSATION CLINIC NO 03/17/2015 [facility] History of tobacco use TOBACCO OFFERRED PT MEDS (PROVIDER) 03/16/2015 [facility] History of tobacco use CURRENT SMOKER 03/15/2015 1 PPD [facility] History of tobacco use TOBACCO CESSATION CLINIC NO 02/17/2015 [facility] History of tobacco use TOBACCO OFFERRED PT MEDS (PROVIDER) 02/16/2015 [facility] History of tobacco use CURRENT SMOKER 02/16/2015 1 pack per day [facility] History of tobacco use CURRENT SMOKER 01/26/2015 1 pack per day [facility] History of tobacco use TOBACCO CESSATION CLINIC NO 09/19/2014 [facility] History of tobacco use TOBACCO OFFERRED PT MEDS (PROVIDER) 09/17/2014 [facility] History of tobacco use CURRENT SMOKER 09/17/2014 1 pack per day [facility] History of tobacco use CURRENT SMOKER 06/25/2014 1 pack a day [facility] History of tobacco use CURRENT SMOKER 04/17/2014 1 ppd [facility] History of tobacco use HF V9 CURRENT SMOKER 12/23/2004 [facility] History of tobacco use CURRENT SMOKER 03/31/2004 1 pack a day [facility] History of tobacco use TOBACCO CURRENT USER 04/09/2003 [facility] History of tobacco use TOBACCO CURRENT USER 01/17/2003 [facility] History of tobacco use TOBACCO CURRENT USER 12/26/2002 1 pk qd x 30 years [facility] Plan of Care List of future care activities from [facility] facilities. Additional future care activities may be listed in the Assessment and Plan section. Date/Time Care Activity Care Activity Detail [facility] ty 08/05/2025 AMBULATORY - PSYCHIATRY AMBULATORY - PSYC HIATRY FORMERLY NAMED [facility] Advance Directives List of completed, amended, or rescinded Advance Directives on record at [facility] facilities. An actual copy of the Directive is not included. Date Advance Directive Provider Source 11/28/2017 ADVANCE DIRECTIVE DISCUSSION JOSE ALEJANDRO BULLARD [facility] 03/16/2015 ADVANCE DIRECTIVE CASEY FELIX [facility] 06/30/2014 ADVANCE DIRECTIVE DISCUSSION IVONE TOLEDO [facility] 01/21/2003 ADVANCE DIRECTIVE DISCUSSION TJ MERCADO 01/07/2003 ADVANCE DIRECTIVE DISCUSSION SANCHEZ BROWNPH
[2025-07-15] MEDS: DIAZEPAM 10 MG/2 ML SYRINGE 5 MG IV ×2 (14:19→14:51)
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
--- OUTSIDE RECORDS SUMMARY | 2025-07-15 14:19 | XMS_ITS | Encounter Summary ---
Author Organization [facility] Address [address] [place] [address] Phone Care Team Providers Care Dough Machine Operator Name Role Phone Sulaiman Feldman DO Primary Care Provider [phone] Encounter Details Date Type Department Care Team (Late st Contact Info) Description 11/17/2024 Scanned Document [facility] [address] [place] [id number] Scanning, Generic Provider Social History Tobacco Use [...] on filedocumented in this encounter Care Teams Dough Machine Operator Relationship Specialty Start Date End Date Sulaiman Feldman DO [address] [place] [address] PCP - General 11/29/24 documented as of this encounter
--- OUTSIDE RECORDS SUMMARY | 2025-07-15 14:19 | XMS_ITS | Encounter Summary ---
Author Organization [facility] Address [address] [place] [address] Phone Care Team Providers Care Upscale Security Officer Name Role Phone Sulaiman Feldman DO Primary Care Provider [phone] Encounter Details Date Type Department Care Team (Late st Contact Info) Description 05/02/2024 Scanned Document [facility] [address] [place] [phone] Scanning, Generic Provider Social History Tobacco Use [...] on filedocumented in this encounter Care Teams Upscale Security Officer Relationship Specialty Start Date End Date Sulaiman Feldman DO [address] [place] [address] PCP - General 11/29/24 documented as of this encounter
--- OUTSIDE RECORDS SUMMARY | 2025-07-15 14:19 | XMS_ITS | Clinical Summary ---
Author Organization [facility] Address [address] [place] [address] Care Team Providers Care Repulping Supervisor Name Role Phone Thanh Kenney DO Unavailable [phone] Social History Tobacco Use Types Packs/Day Years Used Date Smoking Tobacco: Never Assessed Sex and Gender Information Value Date Recorded Sex Assigned at Not on file Legal Sex Male 2:37 PM EST Gender Identity Not on file Sexual Orientation Not on file Plan of Treatment Not on file Insurance [employer] Care Teams Repulping Supervisor Relationship Specialty Start Date End Date Thanh Kenney DO [address] [place] [phone] Referring Physician Neurology 12/11/24
--- OUTSIDE RECORDS SUMMARY | 2025-07-15 14:19 | XMS_ITS | Encounter Summary ---
Author Organization [facility] Address [address] [place] [address] Phone Care Team Providers Care Virginia Line Attendant Name Role Phone Sulaiman Feldman DO Primary Care Provider [phone] Encounter Details Date Type Department Care Team (Late st Contact Info) Description 06/07/2025 Scanned Document [facility] [address] [place] [phone] Scanning, Generic Provider Social History Tobacco Use [...] on filedocumented in this encounter Care Teams Virginia Line Attendant Relationship Specialty Start Date End Date Sluaiman Feldman DO [address] [place] [address] PCP - General 11/29/24 documented as of this encounter
--- OUTSIDE RECORDS SUMMARY | 2025-07-15 14:19 | XMS_ITS | Clinical Summary ---
Author Organization [facility] Address [address] [place] [address] Care Team Providers Care Practical Nurse Clinical Coordinator Name Role Phone Phys, Self-Refer Or No Pcp/Referring Primary Car e Provider Unavailable Allergies No known active allergies Social History Tobacco Use Types Packs/Day Years Used Date Smoking Tobacco: Never Assessed Sex and Gender Information Value Date Recorded Sex Assigned at Not on file Legal Sex Male 4:19 PM EDT Gender Identity Not on file Sexual Orientation Not on file Last Filed Vital Signs Vital Sign Reading Time Taken Comments Blood Pressure 126/65 12/25/2021 6:20 PM EST Pulse 62 12/25/2021 6:20 PM EST Temperature 37.1 C (98.7 F) 12/25/2021 6:20 PM EST Respiratory Rate 19 12/25/2021 6:20 PM EST Oxygen Saturation 95% 12/25/2021 6:20 PM EST Inhaled Oxygen Concentration - - Weight 90.7 kg (200 lb) 12/25/2021 5:17 PM EST Height 185.4 cm (6' 1 ) 12/25/2021 5:17 PM EST Body Mass Index 26.39 12/25/2021 5:17 PM EST Plan of Treatment Health Maintenance Due Date Last Done Comments Cologuard (average risk only) 1958 Colonoscopy 1958 Colorectal Cancer Screening 1958 FIT (average risk only) 1958 Hepatitis C Screening 1958 DTaP,Tdap,and Td Vaccines (1 - Tdap) 1977 Pneumococcal Vaccines 50year s + (1 of 1 - PCV) 2008 Zoster Recombinant Vaccines (1 of 2) 2008 COVID-19 Vaccine ( - 2023-2 5 season) 2025 Influenza Vaccine (#1) 2025 Respiratory Syncytial Virus (RSV) or ages 60 years and older (1 - 1-dose 75+ series) 2033 Respiratory Syncytial Virus (RSV) ages 0 thru 19 months Aged Out No longer eligible based on patient's age to complete this topic Insurance BCBS MEDICARE OUT OF STATE ADV PLN Care Teams Practical Nurse Clinical Coordinator Relationship Specialty Start Date End Date Phys, Self-Refer Or No Pcp/Referring PCP - General 06/20/20
--- OUTSIDE RECORDS SUMMARY | 2025-07-15 14:19 | XMS_ITS | Clinical Summary ---
Author Organization [facility] Address [address] [place] [address] Phone Care Team Providers Care Sales Trader Name Role Phone Sulaiman Feldman Primary Care Provider [phone] Encounters Date Type Department Care Team Description 06/07/2025 Scanned Document [facility] [address] [place] [id number] Scanning, Generic Provider from Last 3 Months Social History Tobacco Use Types Packs/Day Years [...] Diabetes Screening 1976 Hepatitis C Screening 1976 Pneumococcal Vaccine (1 of 2 - PCV) 1977 DTaP/Tdap/Td Vaccines (1 - Tdap) 1980 PSA Prostate Cancer Screening 2008 Zoster Vaccines (1 of 2) 2008 RSV High Risk: (Elderly (60+ ) or Population) (1 - Risk 60-74 years 1-dose series) 2018 COVID-19 Vaccine ( - 2023-2 5 season) 2024 Influenza Vaccine (#1) 2025 HIB Vaccines Aged Out No longer eligi [...] patient's age to complete this topic Insurance [employer] MEDICARE [employer] MEDICARE Care Teams Sales Trader Relationship Specialty Start Date End Date Sulaiman Feldman DO [address] [place] [address] PCP - General 11/29/24
--- OUTSIDE RECORDS SUMMARY | 2025-07-15 14:19 | XMS_ITS | Encounter Summary ---
Author Organization [facility] tem Address [id number] [address] [place] [address] Care Team Providers Care Telephone Solicitor Name Role Phone No Pcp, No Pcp Primary Care Provider Unavailabl e Encounter Details Date Type Department Care Team (Late st Contact Info) Description 09/12/2019 Telephone [facility] [address] [place] [address] Lorie Ross, JAQUAN Social History [...] on filedocumented in this encounter Care Teams Telephone Solicitor Relationship Specialty Start Date End Date No Pcp, [place] [address] PCP - General Family Medicine 02/24/18 documented as of this encounter
--- NOTE | 2025-07-15 14:21 | CT_ITS ---
The [address] [address] Patient Name: AARON OLIVAREZ MRN: [id number] date: 1960 Sex: M Assigned Patient Location: ER Current Patient Location: ER Accession/Order Number: [id number] Exam Date: 07/15/2025 14:36 Report Date: 07/15/2025 15:26 At the request of: JOEY BLACKMAN DO Procedure: CT angio neck CT head/brain wo con, CT angio head, CT angio neck 07/15/2025 2:43 PM SIGNS AND SYMPTOMS: Seizure, left arm weakness CONTRAST: 100 mL of intravenous Omnipaque 350 TECHNIQUE: Multi-detector CT angiography axial slices of the head and neck were obtained before and during intravenous administration of IV contrast material. Sagittal, coronal, and 3-D reconstructions were performed and viewed on a separate workstation. CT was performed with one or more of the following dose reduction techniques: Automated exposure control, adjustment of the mA and/or kV according to patient size, or use of iterative reconstruction technique. Stenoses were measured using the NASCET criteria. COMPARISON: 06/07/2023 FINDINGS: Noncontrast head CT: There is no shift of the midline structures, acute intracranial bleeding, mass effects, or evidence of acute ischemia. Atherosclerotic changes are noted in the intracranial segments of the internal carotid arteries, the V4 segments of the vertebral arteries, and the basilar artery. There is age-related cortical atrophy. This periventricular white matter hypoattenuation. The ventricular system is normal in size. The brainstem and the cerebellum are unremarkable. The visualized intraorbital contents, the visualized paranasal sinuses, and the visualized soft tissue in the infratemporal spaces show no abnormality. The osseous structures in the skull base and the calvarium show no acute abnormality. CTA HEAD: The superior cerebellar arteries, posterior inferior cerebellar arteries, and the basilar artery are within normal limits. The posterior cerebral arteries are unremarkable. Calcified plaque is noted throughout the intracranial segments of the internal carotid arteries with mild to moderate multifocal narrowing within the cavernous segment and severe stenosis of the supraclinoid segment on the right. There are normal anterior and middle cerebral arteries. Anterior communicating artery is patent. Posterior communicating arteries are present. The deep venous system and dural venous systems appear to be patent. No bony abnormalities are appreciated. CTA NECK: There is a normal three-vessel arch. The subclavian arteries are within normal limits. Calcified plaque is noted in the origins of the vertebral arteries. There is moderate stenosis of the origin of the left and mild stenosis of the origin on the right. The vertebral arteries arise from the subclavian arteries and are normal in course and caliber up to the skull base, otherwise. Calcified plaque is noted in the carotid bifurcations without significant stenosis. The common and internal carotid arteries are normal in course and caliber. Emphysematous changes are noted in the lung parenchyma. Degenerative changes are noted in the cervical spine and thoracic spine. No acute bony abnormalities are identified. The paraspinous soft tissues are within normal limits. CT/CT head/brain wo con IMPRESSION: No acute intracranial pathology. Chronic age-related neurodegenerative changes are noted as above. Calcified plaque is noted in the origins of the vertebral arteries. There is moderate stenosis of the origin of the left and mild stenosis of the origin on the right. Calcified plaque is noted throughout the intracranial segments of the internal carotid arteries with mild to moderate multifocal narrowing within the cavernous segment and severe stenosis of the supraclinoid segment on the right. No evidence of aneurysmal dilatation, dissection, or occlusion. Impression dictated by: Dung Chakraborty M.D. 07/15/2025 3:26 PM Dictation Location: [place] [address] Electronically authenticated by: [id number] Y Date: 07/15/2025 15:26
--- NOTE | 2025-07-15 14:21 | CT_ITS ---
The [address] [address] Patient Name: AARON OLIVAREZ MRN: [id number] date: 1960 Sex: M Assigned Patient Location: ER Current Patient Location: ER Accession/Order Number: [id number] Exam Date: 07/15/2025 14:36 Report Date: 07/15/2025 15:26 At the request of: JOEY BLACKMAN DO Procedure: CT angio neck CT head/brain wo con, CT angio head, CT angio neck 07/15/2025 2:43 PM SIGNS AND SYMPTOMS: Seizure, left arm weakness CONTRAST: 100 mL of intravenous Omnipaque 350 TECHNIQUE: Multi-detector CT angiography axial slices of the head and neck were obtained before and during intravenous administration of IV contrast material. Sagittal, coronal, and 3-D reconstructions were performed and viewed on a separate workstation. CT was performed with one or more of the following dose reduction techniques: Automated exposure control, adjustment of the mA and/or kV according to patient size, or use of iterative reconstruction technique. Stenoses were measured using the NASCET criteria. COMPARISON: 06/07/2023 FINDINGS: Noncontrast head CT: There is no shift of the midline structures, acute intracranial bleeding, mass effects, or evidence of acute ischemia. Atherosclerotic changes are noted in the intracranial segments of the internal carotid arteries, the V4 segments of the vertebral arteries, and the basilar artery. There is age-related cortical atrophy. This periventricular white matter hypoattenuation. The ventricular system is normal in size. The brainstem and the cerebellum are unremarkable. The visualized intraorbital contents, the visualized paranasal sinuses, and the visualized soft tissue in the infratemporal spaces show no abnormality. The osseous structures in the skull base and the calvarium show no acute abnormality. CTA HEAD: The superior cerebellar arteries, posterior inferior cerebellar arteries, and the basilar artery are within normal limits. The posterior cerebral arteries are unremarkable. Calcified plaque is noted throughout the intracranial segments of the internal carotid arteries with mild to moderate multifocal narrowing within the cavernous segment and severe stenosis of the supraclinoid segment on the right. There are normal anterior and middle cerebral arteries. Anterior communicating artery is patent. Posterior communicating arteries are present. The deep venous system and dural venous systems appear to be patent. No bony abnormalities are appreciated. CTA NECK: There is a normal three-vessel arch. The subclavian arteries are within normal limits. Calcified plaque is noted in the origins of the vertebral arteries. There is moderate stenosis of the origin of the left and mild stenosis of the origin on the right. The vertebral arteries arise from the subclavian arteries and are normal in course and caliber up to the skull base, otherwise. Calcified plaque is noted in the carotid bifurcations without significant stenosis. The common and internal carotid arteries are normal in course and caliber. Emphysematous changes are noted in the lung parenchyma. Degenerative changes are noted in the cervical spine and thoracic spine. No acute bony abnormalities are identified. The paraspinous soft tissues are within normal limits. CT/CT angio neck IMPRESSION: No acute intracranial pathology. Chronic age-related neurodegenerative changes are noted as above. Calcified plaque is noted in the origins of the vertebral arteries. There is moderate stenosis of the origin of the left and mild stenosis of the origin on the right. Calcified plaque is noted throughout the intracranial segments of the internal carotid arteries with mild to moderate multifocal narrowing within the cavernous segment and severe stenosis of the supraclinoid segment on the right. No evidence of aneurysmal dilatation, dissection, or occlusion. Impression dictated by: Dung Chakraborty M.D. 07/15/2025 3:26 PM Dictation Location: [place] [address] Electronically authenticated by: [id number] Y Date: 07/15/2025 15:26
--- NOTE | 2025-07-15 14:21 | CT_ITS ---
The [address] [address] Patient Name: AARON OLIVAREZ MRN: [id number] date: 1960 Sex: M Assigned Patient Location: ER Current Patient Location: ER Accession/Order Number: [id number] Exam Date: 07/15/2025 14:36 Report Date: 07/15/2025 15:26 At the request of: JOEY BLACKMAN DO Procedure: CT angio neck CT head/brain wo con, CT angio head, CT angio neck 07/15/2025 2:43 PM SIGNS AND SYMPTOMS: Seizure, left arm weakness CONTRAST: 100 mL of intravenous Omnipaque 350 TECHNIQUE: Multi-detector CT angiography axial slices of the head and neck were obtained before and during intravenous administration of IV contrast material. Sagittal, coronal, and 3-D reconstructions were performed and viewed on a separate workstation. CT was performed with one or more of the following dose reduction techniques: Automated exposure control, adjustment of the mA and/or kV according to patient size, or use of iterative reconstruction technique. Stenoses were measured using the NASCET criteria. COMPARISON: 06/07/2023 FINDINGS: Noncontrast head CT: There is no shift of the midline structures, acute intracranial bleeding, mass effects, or evidence of acute ischemia. Atherosclerotic changes are noted in the intracranial segments of the internal carotid arteries, the V4 segments of the vertebral arteries, and the basilar artery. There is age-related cortical atrophy. This periventricular white matter hypoattenuation. The ventricular system is normal in size. The brainstem and the cerebellum are unremarkable. The visualized intraorbital contents, the visualized paranasal sinuses, and the visualized soft tissue in the infratemporal spaces show no abnormality. The osseous structures in the skull base and the calvarium show no acute abnormality. CTA HEAD: The superior cerebellar arteries, posterior inferior cerebellar arteries, and the basilar artery are within normal limits. The posterior cerebral arteries are unremarkable. Calcified plaque is noted throughout the intracranial segments of the internal carotid arteries with mild to moderate multifocal narrowing within the cavernous segment and severe stenosis of the supraclinoid segment on the right. There are normal anterior and middle cerebral arteries. Anterior communicating artery is patent. Posterior communicating arteries are present. The deep venous system and dural venous systems appear to be patent. No bony abnormalities are appreciated. CTA NECK: There is a normal three-vessel arch. The subclavian arteries are within normal limits. Calcified plaque is noted in the origins of the vertebral arteries. There is moderate stenosis of the origin of the left and mild stenosis of the origin on the right. The vertebral arteries arise from the subclavian arteries and are normal in course and caliber up to the skull base, otherwise. Calcified plaque is noted in the carotid bifurcations without significant stenosis. The common and internal carotid arteries are normal in course and caliber. Emphysematous changes are noted in the lung parenchyma. Degenerative changes are noted in the cervical spine and thoracic spine. No acute bony abnormalities are identified. The paraspinous soft tissues are within normal limits. CT/CT angio head IMPRESSION: No acute intracranial pathology. Chronic age-related neurodegenerative changes are noted as above. Calcified plaque is noted in the origins of the vertebral arteries. There is moderate stenosis of the origin of the left and mild stenosis of the origin on the right. Calcified plaque is noted throughout the intracranial segments of the internal carotid arteries with mild to moderate multifocal narrowing within the cavernous segment and severe stenosis of the supraclinoid segment on the right. No evidence of aneurysmal dilatation, dissection, or occlusion. Impression dictated by: Dung Chakraborty M.D. 07/15/2025 3:26 PM Dictation Location: [place] [address] Electronically authenticated by: [id number] Y Date: 07/15/2025 15:26
--- NOTE | 2025-07-15 14:21 | ECG_ITS ---
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: : 1960 Requested By: [id number] Order Number: [id number] Reading MD: YADIRA MCCORD Measurements Intervals [place] Rate: 84 P: 95 WA: 170 QRS: 99 QRSD: 86 T: 58 QT: 368 QTc: 409 Interpretive Statements 1100 Sinus rhythm with frequent ventricular premature complexes Possible septal infarct age indeterminate [address] & Twave abnormality 7102 Moderate right axis deviation 0101 Possible arm leads reversed, check lead requested 9150 abnormal ECG Compared to ECG 06/07/2025 07:36:32 Ventricular premature complex(es) now present Inferior Myocardial infarct finding no longer present ST (T wave) deviation still present Electronically Signed On 07-16-2025 13:55:19 EDT by YADIRA MCCORD
--- NOTE | 2025-07-15 14:23 | XR_ITS ---
The [place] [address] Patient Name: AARON OLIVAREZ MRN: [id number] date: 1960 Sex: M Assigned Patient Location: ER Current Patient Location: ER Accession/Order Number: [id number] Exam Date: 07/15/2025 14:36 Report Date: 07/15/2025 15:26 At the request of: JOEY BLACKMAN DO Procedure: XR chest 1V XR chest 1V 07/15/2025 2:43 PM SIGNS AND SYMPTOMS: ^hypoxia PROTOCOL: Frontal radiograph of the chest COMPARISON: 06/07/2025 FINDINGS: The trachea is midline. The heart and mediastinal structures are within normal limits. The lung parenchyma is clear. The bony thorax is intact. Remote healed posterior left-sided rib fractures are redemonstrated. XR/XR chest 1V IMPRESSION: No acute cardiopulmonary pathology. Impression dictated by: Dung Chakraborty M.D. 07/15/2025 3:26 PM Dictation Location: [place] [address] Electronically authenticated by: [id number] Y Date: 07/15/2025 15:26
[2025-07-15 14:33] LABS: Hematocrit 48.6 % (42.0-54.0); Hemoglobin 15.8 g/dL (14.0-18.0); Immature Granulocytes Abs Auto 0.02 10^3/uL (0.00-0.03); Immature Granulocytes Pct Auto 0.4 % (0.0-0.5); Lymphocytes Absolute Auto 0.7 10^3/uL (1.2-3.8); Mean Corpuscular HGB Conc 32.5 g/dL (29.9-35.2); Mean Corpuscular Hemoglobin 30.3 pg (25.9-34.0); Mean Corpuscular Volume 93.1 fL (80.0-94.0); Platelet Count 199 10^3/uL (150-450); Red Blood Count 5.22 10^6/uL (4.70-6.10); White Blood Count 5.7 10^3/uL (4.0-11.0)
--- NOTE | 2025-07-15 14:40 | ED.GENADUL1 ---
HPI HPI - General Adult General Chief complaint: Seizure Stated complaint: POSSIBLE SEIZURE Time Seen by Provider: 07/15/25 14:17 Source: patient Mode of arrival: ambulance Limitations: altered mental status History of Present Illness HPI narrative: Patient is a 64-year-old male presenting to the emergency department via EMS for concerns of a seizure. Per EMS, the patient was with friends prior to arrival when he had seizure-like activity . They state that he locked up and had bladder incontinence. The patient reportedly has a history of seizures with a known history of medication noncompliance. He also has a history of polysubstance use. On arrival to ED, patient appears postictal and only answers yes/no questions intermittently. When asked if he was alcohol today he says yes. When asked if he is methamphetamine today he says yes. When asked review of symptoms question such as chest pain, shortness of breath, abdominal pain, nausea, or vomiting he does not answer. Related Data Home Medications ?Medication ?Instructions ?Recorded ?Confirmed No Known Home Medications 12/20/24 07/15/25 Allergies Allergy/AdvReac Type Severity Reaction Status Date / Time No Known Drug Allergies Allergy Verified 07/15/25 14:17 Opioid HPI Opioid Management Most Recent Opioid Data: Last Pain Scale 4 04/01/24, 12:20 Ur Phencyclidine Scrn, (NEGATIVE) Negative 06/07/25, 07:52 Review of Systems ROS Status of ROS unobtainable due to mental status PFSH PFSH Social History Little interest or pleasure in doing things: not at all Feeling down, depressed, or hopeless: not at all Exam Narrative Exam Narrative: CONSTITUTIONAL: Patient appears disheveled and postictal/confused. He only intermittently answers yes or no questions. Intermittently follows commands. HEAD: Atraumatic, normocephalic SKIN: Was warm and dry, no abrasions or external signs of injury. EYES: No scleral icterus. EARS, NOSE, THROAT: No tongue lacerations RESPIRATORY: Mild bilateral expiratory wheezing. No use of accessory muscles. No stridor. CARDIOVASCULAR: Normal rate and regular rhythm. There is no S3, S4, murmur, rub. Radial and dorsalis pedis pulses are 2+ and symmetrical. GASTROINTESTINAL: Abdomen was soft, non-tender, and non-distended. There is no guarding or rebound tenderness MUSCULOSKELETAL: There was no lower extremity edema, erythema, or tenderness. NEUROLOGIC: Reflexes: No clonus or rigidity. Patellar reflexes 2/4 bilaterally. Sensation: Withdraws to painful stimuli in the bilateral lower extremities and right upper extremity. Does not withdraw to pain in the left upper extremity Motor: Good muscle tone. Equal strength in the bilateral lower extremities. 5/5 strength in the right upper extremity. 0/5 strength in left upper extremity. Cerebellar: Unable to test. Cranial Nerves: Pupils are round, reactive to light and accommodation. Extraocular movements are intact without ptosis. No nystagmus. Facial muscle strength is normal and equal bilaterally. Tongue protrudes midline and moves symmetrically. Constitutional Vital Signs, click to edit/add: Last Vital Signs Temp 98.7 F 07/15/25 14:12 Pulse 83 07/15/25 17:00 Resp 16 07/15/25 17:00 BP 146/87 H 07/15/25 16:30 Pulse Ox 95 07/15/25 16:50 O2 Del Method Nasal Cannula 07/15/25 14:53 O2 Flow Rate 4 07/15/25 14:53 Course Vital Signs Vital signs: Vital Signs Pulse Oximetry 90 L 07/15/25 14:11 Oxygen Delivery Method Room Air 07/15/25 14:11 Temperature 98.7 F 07/15/25 14:12 Pulse Rate 83 07/15/25 17:00 Respiratory Rate 16 07/15/25 17:00 Blood Pressure 146/87 H 07/15/25 16:30 Pulse Oximetry 95 07/15/25 16:50 Oxygen Delivery Method Nasal Cannula 07/15/25 14:53 Oxygen Delivery Flow Rate 4 07/15/25 14:53 Medical Decision Making [facility] Narrative Medical decision making narrative: Patient is a 64-year-old male presenting to the emergency department via EMS for evaluation of a witnessed seizure. On arrival to the ED, patient was placed on the diagnostic cardiac sonographer that demonstrated normal sinus rhythm by my interpretation. He is hypertensive and hypoxic to 80% on room air. His saturations improved to 95% on 6 L nasal cannula. Examination as noted above, however was notable for a disheveled man who appears postictal. His neuro examination was notable for left upper extremity weakness. On review of external documentation, patient has been seen in the emergency department numerous times for similar presentations. He has a history of polysubstance use and seizure disorder with longstanding history of medication nonadherence. He has been worked up in the past for left-sided weakness after having a seizure. He had an admission at [facility] in July 2024 with left-sided weakness in the postictal state. He had an EEG, CTAs, and MRI with no major abnormalities found. My clinical impression is that the patient had a breakthrough seizure secondary to medication nonadherence. 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 Additionally, the patient's polysubstance use including alcohol and methamphetamine today likely lowered her seizure threshold. I did consider CVA, though this is of lower likelihood. Regardless, CT/CTA of the head and neck were obtained. IV was established and laboratory studies were obtained to rule out underlying electrolyte/metabolic derangement. In regards to the patient's hypoxia, this is likely related to aspiration. Chest x-ray was ordered. He was having some mild wheezing with a history of COPD, therefore DuoNeb treatments were ordered. He was loaded with 4 g of IV Keppra. He was also given 5 mg of IV diazepam as he did have a 30 second seizure while here in the ED. Seizure precautions were placed. 12 Lead EKG: Normal sinus rhythm at a rate of 84. Right axis deviation. No ST segment elevations. There are mild ST segment depressions in the lateral leads. QRS, IL, and QTc interval within normal limits. Occasional PVCs. Final impression: normal sinus rhythm without ST segment depression. No evidence of STEMI. Laboratory studies were unremarkable. No significant electrolyte or metabolic derangement. No evidence of acute kidney injury. No anemia, leukocytosis, or thrombocytopenia. No transaminitis or hyperbilirubinemia. Initial and repeat 2-hour troponin was elevated to [address] head independently reviewed/interpreted by myself demonstrated no acute intracranial pathology or hemorrhage. CTA of the head and neck demonstrated no large vessel occlusion, aneurysm, or dissection. Chest x-ray independently reviewed/interpreted by myself demonstrated no acute cardiopulmonary process. After approximately 30 minutes the emergency department, patient had another seizure requiring 5 mg of IV diazepam. I do believe the patient's presentation is consistent with Gabo's paralysis and status epilepticus. The patient's elevated troponin is likely an NSTEMI secondary to demand ischemia from multiple seizures and methamphetamine use. I did consult and discussed the patient with neurologist, Dr. Salinas, at [facility]. She agreed with the plan and also advised against tenecteplase as this is unlikely to be an ischemic stroke. She recommended restarting the patient's home antiepileptic medications and obtaining a drug screen/antiepileptic drug levels. Patient requires admission to the hospital. I discussed the patient with Dr. Hahn, on-call hospitalist, who accepted the patient to his service. At the time of admission, patient is starting to wake up and is getting angry when I examine him. He remains hemodynamically stable, saturating 96% on 4 L nasal cannula. FINAL IMPRESSION: #Acute breakthrough seizure secondary to medication nonadherence #Acute left-sided weakness, likely secondary to Gabo's paralysis #Acute NSTEMI DISPOSITION: Admitted to the hospital CONDITION: Fair Medical Records Medical records reviewed: Yes I reviewed the patient's medical records Lab Data Lab results reviewed: Yes I reviewed the patient's lab results Labs: Lab Results 07/15/25 07/15/25 07/15/25 Range/Units 14:16 14:24 14:58 WBC 5.7 (4.0-11.0) 10^3/uL RBC 5.22 (4.70-6.10) 10^6/uL Hgb 15.8 (14.0-18.0) g/dL Hct 48.6 (42.0-54.0) % MCV 93.1 (80.0-94.0) fL MCH 30.3 (25.9-34.0) pg MCHC 32.5 (29.9-35.2) g/dL RDW 15.2 H (11.0-15.0) % Plt Count 199 (150-450) 10^3/uL MPV 9.2 L (9.5-13.5) fL Neut % (Auto) 81.8 H (43.0-75.0) % Lymph % (Auto) 12.5 L (20.5-60.0) % [place] % (Auto) 4.4 (1.7-12.0) % Eos % (Auto) 0.2 L (0.9-7.0) % Baso % (Auto) 0.7 (0.2-2.0) % Neut # (Auto) 4.6 (1.4-6.5) 10^3/uL Lymph # (Auto) 0.7 L (1.2-3.8) 10^3/uL [place] # (Auto) 0.3 (0.3-0.8) 10^3/uL Eos # (Auto) 0.0 (0.0-0.7) 10^3/uL Baso # (Auto) 0.0 (0.0-0.1) 10^3/uL Abs Immat Gran (auto) 0.02 (0.00-0.03) 10^3/uL Imm/Tot Granulo (auto) 0.4 (0.0-0.5) % VBG pH 7.294 L (7.330-7.430) VBG pCO2 67.6 H (40.0-52.0) mmHg Sodium 141 (136-145) mmol/L Potassium 3.6 (3.5-5.1) mmol/L Chloride 101 (98-107) mmol/L Carbon Dioxide 33.5 H (21.0-32.0) mmol/L Anion Gap 10.1 BUN 20.0 H (7.0-18.0) mg/dL Creatinine 1.32 H (0.70-1.30) mg/dL Est GFR ( Amer) >60 (>=60 mL/min/1.73m^2) Est GFR (Non-Af Amer) 54 L (>=60 mL/min/1.73m^2) BUN/Creatinine Ratio 15.2 Glucose 120 H (74-106) mg/dL Calcium 9.1 (8.5-10.1) mg/dL Magnesium 2.2 (1.8-2.4) mg/dL Total Bilirubin 1.0 (0.2-1.0) mg/dL AST 38 H (15-37) U/L ALT 43 (16-63) U/L Alkaline Phosphatase 101 (46-116) U/L Troponin I High Sens 80.7 H* (4.0-76.1) pg/mL Total Protein 8.1 (6.4-8.2) g/dL Albumin 4.5 (3.4-5.0) g/dL Globulin 3.6 g/dL Albumin/Globulin Ratio 1.2 Ethanol Quant <3 mg/dL POC Glucose 110 H (74-106) mg/dL 07/15/25 Range/Units 16:43 WBC (4.0-11.0) 10^3/uL RBC (4.70-6.10) 10^6/uL Hgb (14.0-18.0) g/dL Hct (42.0-54.0) % MCV (80.0-94.0) fL MCH (25.9-34.0) pg MCHC (29.9-35.2) g/dL RDW (11.0-15.0) % Plt Count (150-450) 10^3/uL MPV (9.5-13.5) fL Neut % (Auto) (43.0-75.0) % Lymph % (Auto) (20.5-60.0) % [place] % (Auto) (1.7-12.0) % Eos % (Auto) (0.9-7.0) % Baso % (Auto) (0.2-2.0) % Neut # (Auto) (1.4-6.5) 10^3/uL Lymph # (Auto) (1.2-3.8) 10^3/uL [place] # (Auto) (0.3-0.8) 10^3/uL Eos # (Auto) (0.0-0.7) 10^3/uL Baso # (Auto) (0.0-0.1) 10^3/uL Abs Immat Gran (auto) (0.00-0.03) 10^3/uL Imm/Tot Granulo (auto) (0.0-0.5) % VBG pH (7.330-7.430) VBG pCO2 (40.0-52.0) mmHg Sodium (136-145) mmol/L Potassium (3.5-5.1) mmol/L Chloride (98-107) mmol/L Carbon Dioxide (21.0-32.0) mmol/L Anion Gap BUN (7.0-18.0) mg/dL Creatinine (0.70-1.30) mg/dL Est GFR ( Amer) (>=60 mL/min/1.73m^2) Est GFR (Non-Af Amer) (>=60 mL/min/1.73m^2) BUN/Creatinine Ratio Glucose (74-106) mg/dL Calcium (8.5-10.1) mg/dL Magnesium (1.8-2.4) mg/dL Total Bilirubin (0.2-1.0) mg/dL AST (15-37) U/L ALT (16-63) U/L Alkaline Phosphatase (46-116) U/L Troponin I High Sens 78.3 H* (4.0-76.1) pg/mL Total Protein (6.4-8.2) g/dL Albumin (3.4-5.0) g/dL Globulin g/dL Albumin/Globulin Ratio Ethanol Quant mg/dL POC Glucose (74-106) mg/dL Imaging Data CT scan - head: Attestation: I personally reviewed and interpreted this imaging study as follows: Radiologist's impression: ITS Impressions Head CT 07/15/25 14:21 IMPRESSION: No acute intracranial pathology. Chronic age-related neurodegenerative changes are noted as above. Calcified plaque is noted in the origins of the vertebral arteries. There is moderate stenosis of the origin of the left and mild stenosis of the origin on the right. Calcified plaque is noted throughout the intracranial segments of the internal carotid arteries with mild to moderate multifocal narrowing within the cavernous segment and severe stenosis of the supraclinoid segment on the right. No evidence of aneurysmal dilatation, dissection, or occlusion. Impression dictated by: Dung Chakraborty M.D. 07/15/2025 3:26 PM Dictation Location: [employer] Electronically authenticated by: [id number] Y Date: 07/15/2025 15:26 Head CTA 07/15/25 14:21 IMPRESSION: No acute intracranial pathology. Chronic age-related neurodegenerative changes are noted as above. Calcified plaque is noted in the origins of the vertebral arteries. There is moderate stenosis of the origin of the left and mild stenosis of the origin on the right. Calcified plaque is noted throughout the intracranial segments of the internal carotid arteries with mild to moderate multifocal narrowing within the cavernous segment and severe stenosis of the supraclinoid segment on the right. No evidence of aneurysmal dilatation, dissection, or occlusion. Impression dictated by: Dung Chakraborty M.D. 07/15/2025 3:26 PM Dictation Location: [employer] Electronically authenticated by: [id number] Y Date: 07/15/2025 15:26 Neck CTA 07/15/25 14:21 IMPRESSION: No acute intracranial pathology. Chronic age-related neurodegenerative changes are noted as above. Calcified plaque is noted in the origins of the vertebral arteries. There is moderate stenosis of the origin of the left and mild stenosis of the origin on the right. Calcified plaque is noted throughout the intracranial segments of the internal carotid arteries with mild to moderate multifocal narrowing within the cavernous segment and severe stenosis of the supraclinoid segment on the right. No evidence of aneurysmal dilatation, dissection, or occlusion. Impression dictated by: Dung Chakraborty M.D. 07/15/2025 3:26 PM Dictation Location: [employer] Electronically authenticated by: [id number] Y Date: 07/15/2025 15:26 Chest X-Ray 07/15/25 14:23 IMPRESSION: No acute cardiopulmonary pathology. Impression dictated by: Dung Chakraborty M.D. 07/15/2025 3:26 PM Dictation Location: [employer] Electronically authenticated by: [id number] Y Date: 07/15/2025 15:26 ECG Data Attestation: I personally reviewed and interpreted this ECG as follows: Critical Care Time Critical Care Time Critical Care Time: Yes Total Critical Care Time: 36 Attestation: Due to a high probability of clinically significant, life threatening deterioration, the patient required my highest level of preparedness to intervene emergently and I personally spent this critical care time directly and personally managing the patient. This critical care time included obtaining a history; examining the patient; pulse oximetry; ordering and review of studies; arranging urgent treatment with development of a management plan; evaluation of patient's response to treatment; frequent reassessment; and, discussions with other providers. This critical care time was performed to assess and manage the high probability of imminent, life-threatening deterioration that could result in multi-organ failure. It was exclusive of separately billable procedures and treating other patients and teaching time. Discharge Plan Discharge Chief Complaint: Seizure Clinical Impression: Epileptic seizure, Medical non-compliance, Gabo's paralysis (postepileptic) Patient Disposition: Admitted As Inpatient Time of Disposition Decision: 16:34 Condition: Fair
[2025-07-15 14:46] LABS: Alanine Aminotransferase 43 U/L (16-63); Albumin Globulin Ratio 1.2; Albumin Level 4.5 g/dL (3.4-5.0); Alkaline Phosphatase 101 U/L (46-116); Anion Gap 10.1; Aspartate Amino Transferase 38 U/L (15-37); Blood Urea Nitrogen 20.0 mg/dL (7.0-18.0); Calcium 9.1 mg/dL (8.5-10.1); Carbon Dioxide 33.5 mmol/L (21.0-32.0); Chloride 101 mmol/L (98-107); Estimated GFR (African America >60 (>=60 mL/min/1.73m^2); Estimated GFR (Non-African Ame 54 (>=60 mL/min/1.73m^2); Globulin 3.6 g/dL; Glucose 120 mg/dL (74-106); Potassium 3.6 mmol/L (3.5-5.1); Sodium 141 mmol/L (136-145); Total Protein 8.1 g/dL (6.4-8.2)
[2025-07-15 14:48] LABS: Magnesium 2.2 mg/dL (1.8-2.4)
[2025-07-15] MEDS: IPRATROPIUM/ALBUTEROL SULFATE 3 ML AMPUL.NEB 6 ML IH (14:53)
[2025-07-15 15:07] LABS: pH VBG 7.294 (7.330-7.430)
[2025-07-15 15:08] LABS: PCO2 VBG 67.6 mmHg (40.0-52.0)
[2025-07-15] MEDS: 0.9 % SODIUM CHLORIDE 1,000 ML 1000 ML IV (15:18)
--- NOTE | 2025-07-15 17:13 | PM.IMHP1 ---
Internal Medicine - H&P: HPI History of Present Illness Chief complaint: Epileptic seizure gabo's paralysis Narrative: Mr Trujillo is a 64-year-old male with a past medical history notable for seizure disorder, noncompliance, recreational drug use, COPD who presents to hospital today having breakthrough seizures. The patient was sedated at the time of my interview and all the history was obtained directly from the ER physician and the bedside RN.The patient was with his friends earlier on today when he had seizure-like activity and incontinence of his bladder, he was subsequently brought to the hospital. He did have 2 witnessed seizures here in the hospital. He was responsive and communicating to the emergency room physician, he did endorse having alcohol today and said yes no to questions but offered no further in-depth answers. There is also report of methamphetamine use however the talk screen is pending. He was given 4 g of Keppra in the emergency room, he did have a witnessed seizure initially which was aborted with 5 mg of IV diazepam. After the CT head and neck were performed, he did have another seizure and he got another 5 mg of IV diazepam. Please see ER note for details. Gladys jean-baptiste was contacted as the patient developed left-sided weakness however it was thought to be Gabo's paralysis and no other evidence of an ischemic stroke. Patient will subsequently be admitted to the hospital under observation status for concerns of breakthrough seizures. Upon my assessment, the patient is sleeping soundly, he is able to be woken up slightly with verbal stimuli, he does respond to painful stimuli however he does not actually answer any questions for me. On exam there is appear to be a small laceration on the anterior aspect of his tongue though I do not see any dried blood in it or around his mouth. His pupils are equal and reactive to light though he is very apprehensive and pushes my hand away when opening up his eyelids. He is snoring most of the time. The left arm is flaccid, please see ER physician note for discussion with Gladys jean-baptiste on that. If this left arm weakness/flaccidity continues tomorrow when he is awake and alert, will consider MRI for ischemic stroke. His CT head without contrast was normal, CTA head and neck showed no evidence of a vascular pathology. Review of Systems ROS Status of ROS 10 or more systems reviewed and unremarkable except as noted in history and below PFSH PFSH Social History Little interest or pleasure in doing things: not at all Feeling down, depressed, or hopeless: not at all Meds Home Medications and Allergies Home Medications ?Medication ?Instructions ?Recorded ?Confirmed ?Type No Known Home Medications 12/20/24 07/15/25 History Allergies Allergy/AdvReac Type Severity Reaction Status Date / Time No Known Drug Allergies Allergy Verified 07/15/25 14:17 Exam Narrative Exam Narrative: General: Sedated, snoring HEENT: Normocephalic, atraumatic, no scleral icterus noted Lungs: Clear to auscultation bilaterally though there was some wheezing on exam on admission, he did receive DuoNebs for this Cardiac: Regular rate and rhythm, no murmurs appreciated GI: Soft, nontender, regular bowel sounds. Extremities: His right upper extremity is clenched onto his right thigh though when asked to give a thumbs up he does move his thumb, his left hand and arm appears to be flaccid. Neuro: Cranial nerves II through XII intact, no focal deficits noted Skin: No rashes or lesions, no signs of jaundice Constitutional Vital Signs, click to edit/add: Last Vital Signs Temp 98.7 F 07/15/25 14:12 Pulse 83 07/15/25 17:00 Resp 16 07/15/25 17:00 BP 146/87 H 07/15/25 16:30 Pulse Ox 95 07/15/25 16:50 O2 Del Method Nasal Cannula 07/15/25 14:53 O2 Flow Rate 4 07/15/25 14:53 Internal Medicine - H&P: Reslt Labs Labs: Short CBC 07/15/25 Range/Units 14:24 WBC 5.7 (4.0-11.0) 10^3/uL Hgb 15.8 (14.0-18.0) g/dL Hct 48.6 (42.0-54.0) % Plt Count 199 (150-450) 10^3/uL BMP 07/15/25 14:24 Sodium 141 Potassium 3.6 Chloride 101 Carbon Dioxide 33.5 H BUN 20.0 H Creatinine 1.32 H Glucose 120 H Calcium 9.1 Liver Function 07/15/25 Range/Units 14:24 Total Bilirubin 1.0 (0.2-1.0) mg/dL AST 38 H (15-37) U/L ALT 43 (16-63) U/L Alkaline Phosphatase 101 (46-116) U/L Albumin 4.5 (3.4-5.0) g/dL Assessment and Plan Assessment and Plan (1) Breakthrough seizure: Assessment and Plan: ? Admit to the hospital, observation status with telemetry ? Telemetry is so we can monitor for breakthrough seizures ? If we have a telemetry sitter, please put 1 in the room if able to ? Continue with Keppra 1 mg twice daily starting tomorrow, IV ? He received 4 g Keppra in the emergency room, this is essentially the max dose for the the day ?IV diazepam 5 mg as needed for seizure activity, if he does have a seizure please contact me directly ?He has no fill history, unsure what his home antiepileptics are Feel his breakthrough seizures today are likely secondary to alcohol use and drug use, and noncompliance, this is all based off the ER physician discussion with him before he was sedated. ?If he begins having signs and symptoms of alcohol withdrawal, we will plan to start Librium and CIWA protocol. ? UA and tox screen ordered, please straight cath patient for the samples ? Checking his Keppra levels and Lamictal levels as we do not have any idea what his home AEDs are (2) Medical non-compliance: Assessment and Plan: See above (3) ST elevation (STEMI) myocardial infarction: Assessment and Plan: ? Secondary to seizure activity (4) Hypoxia: Assessment and Plan: ? Has a history of COPD, doing well on 4 L. Likely secondary to sedation. Monitor and titrate as able to (5) COPD (chronic obstructive pulmonary disease): Assessment and Plan: ? No evidence of acute exacerbation, will have DuoNebs 4 times daily (6) Gabo's paralysis (postepileptic): Assessment and Plan: ? CT head without contrast, CTA head and neck were negative for any acute process ? Monitor ? Will defer further stroke workup pending his recovery from the seizure activity. Plan ? DVT prophylaxis addressed ? Regular diet pending swallow evaluation ? Full code
--- OUTSIDE RECORDS SUMMARY | 2025-07-15 17:28 | XMS_ITS | CCD ---
Author Organization [facility] Care Team Providers Care Pta Name Role Phone INDURTI, ELIAN V Unavailable Unavailable INDURTI, ELIAN V Unavailable Unavailable Provider, None Unavailable Unavailable Donna Martinez Unavailable Unavailable Juan, Donna Unavailable Unavailable REQUEST, NONE LISTED Primary Care Unavaila RADHA Key Admitting Unavailable RADHA OBRIEN Attending Unavailable DAINA, DR WOJCIECH Rivas Consulting Unavailabl RADHA Batista Consulting Unavailable VIC ADAMES Consulting Unavailable ANNA RICO Consulting Unavailable DO Sulaiman Feldman Primary Care Provider [phone] MD Magdy Douglass Admit Provider MD Kiko Maldonado Attending Provider MD Karley Nguyen Other Provider MD Patricio Galaviz Other Provider LEN Kent Other Provider DO Stevie Pichardo Jr Other Provider MD Danny Mills Other Provider MD Víctor Agrawal Other Provider [phone] HARVINDER, AHMED B Consulting Unavailable HARVINDER, AHMED B Admitting Unavailable HARVINDER AHMED B Attending Unavailable Sulaiman Feldman DO Primary Care Provider Ragini Carmona DO Emergency Provider Chaz Frey MD Admit Provider Yamila Donald MD Attending Provider Jaylin Fajardo RN Other Provider Unavailable Wojciech Horowitz MD Other Provider Julito Mosley MD Other Provider Emy Rea MD Other Provider Donna Marcelo Other Provider Unavailable Ubaldo Giles, [place] Other Provider Sivan Francois DO Other Provider Reno Hubbard MD Other Provider Thanh Kenney DO Other Provider Neville Bush DO Other Provider Bella Cano APRN Other Provider [phone] Prem PLASTICS NURSE-C, Janie Yates Other Provider Lan BROACH GRINDER-WIRE LOOP MACHINE OPERATOR-C, Alejandra Pantoja Other Provider [phone] Sulaiman Feldman DO Primary Care Provider Ragini Carmona DO Emergency Provider Chaz Frey MD Admit Provider Yamila Donald MD Attending Provider [phone] Donna Marcelo Other Provider Unavailable Ubaldo Giles, [place] Other Provider Sivan Francois DO Other Provider Reno Hubbard MD Other Provider Thanh Kenney DO Other Provider Neville Bush DO Other Provider Bella Cano APRN Other Provider Prem TREVIÑO-C, Janie Yates Other Provider Lan BROACH GRINDER-WIRE LOOP MACHINE OPERATOR-C, Alejandra Pantoja Other Provider NO PCP, NO PCP Primary Care Unavailable FREDERIC, EHAD Consulting Unavailable Sulaiman Feldman DO Primary Care Provider Usman Driver MD Admit Provider Usman Driver MD Other Provider Sciarappa, Donna Other Provider Unavailable Alessandro HARGROVE, Sivan Other Provider Reno Hubbard MD Other Provider [phone] Thanh Kenney DO Other Provider Neville Bush DO Other Provider Rachael BROACH GRINDERBella Tilley Other Provider Lan BROACH GRINDER-WIRE LOOP MACHINE OPERATOR-C, Alejandra Pantoja Other Provider Ratna Denton APRN Other Provider Raina NELSON, Thanh Pantoja Other Provider Tanja NELSON, Víctor Encarnacion Other Provider [phone] Crystal NELSON, Neville Rivas Other Provider Kota Carreno DO Attending Provider Kota Carreno DO Other Provider Michael Willoughby DO Other Provider Terri NELSON, Lizett Other Provider Joseph NELSON, Twin Pantoja Other Provider Cosmo NELSON, Brandy Other Provider Chris NELSON, Sherrie Grant Other Provider NAVIN DEAN Attending Unavailable NAVIN DEAN Admitting Unavailable Sulaiman Feldman Primary Care Unavailable Chaz Frey Admitting Unavailable Yamila Donald Attending Unavailable Davian, Donna Consulting Unavailable [place] Conner Consulting Unavailable Benito Francoisle Consulting Unavailable Reno Hubbard Consulting Unavailable Thanh Kenney Consulting Unavailab Neville Hernandez Consulting Unavailable Bella Cano Consulting Unavailable Janie Amaro Consulting Unavailable Alejandra Montenegro Consulting Unavailable Usman Driver Admitting Unavailable Usman Driver Attending Unavailable Sulaiman Feldman Primary Care Unavailable Davian, Donna Consulting Unavailable Benito Francoisle Consulting Unavailable Reno Hubbard Consulting Unavailable Thanh Kenney Consulting Unavailab Neville Hernandez Consulting Unavailable Bella Cano Consulting Unavailable Alejandra Montenegro Consulting Unavailable Rtana Denton Unavailable Thanh Paris Consulting Unavaila ble Víctor Agrawal Consulting Unavailable Neville Rojas Consulting Unavailable Kota Carreno Consulting Unavailable Michael Willoughby Consulting Unavailable Murray, Basemandeep Consulting Unavailable Twin Ruiz Consulting Un available Brandy Wilburn Consulting Unavailable Sherrie Perez Consulting Unavaila ble Allergies Allergy Classification Reported Allergen(s) Allergy Type Date of Onset Reaction(s) Facility (1 source) No Known Medication Allergies; Translations: [No Known Medication Allergies] Propensity to adverse reactions to drug (disorder) [facility] Repository (1 source) Codeine; Translations: [CODEINE] Drug [...] q4H PRN amLODIPine 10 mg oral tablet (4 sources) Dihydropyridine Calcium Channel Bhavana Start: 05-02-2024 take 1 tablet by mouth once daily buprenorphine 8 mg / naloxone 2 mg [...] 2024 12:00am gabapentin 800 mg oral tablet (4 sources) Anti-epileptic Agent Start: 05-02-2024 take 1 tablet by mouth three times daily levETIRAcetam 500 mg oral tablet (2 sources) Start: 11-21-2024 take 1 tablet by mouth twice daily levothyroxine sodium 0.137 mg oral tablet (4 sources) l-Thyroxine Start: 05-02-2024 take 1 tablet by mouth once daily Completed/Discontinued Medications Medication Drug Class(es) Dates Sig (Normalized) Sig (Original) levoFLOXacin 750 mg oral tablet (4 sources) Quinolone Antimicrobial Start: 4 End: 5 take 1 tablet by mouth once daily Levofloxacin 750 mg tablet Discontinued 750 MG PO Daily 5 May 06, 2024 12:00am November 21, 2024 2:33pm methylPREDNISolone 16 mg oral tablet (4 sources) Corticosteroid Start: 4 End: 5 take 1 tablet by mouth once daily Methylprednisolone (Medrol) 16 mg tablet Discontinued 16 MG PO Daily 5 5 May 06, 2024 12:00am November 21, 2024 2:33pm nicotine 4 mg inhalation solution (4 sources) Cholinergic Nicotinic Agonist Start: 4 End: 5 Nicotine 10 mg cartridge Discontinued 0 INHALATION Q1H as needed for to stop smoking May 02, 2024 12:00am November 21, 2024 2:33pm 2puffs inhaled every 1 hour PRN; 2puffs [...] [Cerebral infarction, unspecified] Onset: 11-18-2024 11-17-2024 Chronic Acute myocardial infarction (3 sources) Myocardial infarction; Translations: [ST elevation (STEMI) myocardial infarction involving other coronary artery of inferior wall] Onset: 06-07-2025 06-07-2025 Chronic Alcohol-related disorders (11 sources) Alcohol abuse with intoxication, unspecified; Translations: [Alcohol abuse] Onset: 11-28-2022 05-02-2024 Chronic Chronic obstructive pulmonary disease and bronchiectasis (5 sources) Acute exacerbation of chronic obstructive airways disease; Translations: [Chronic obstructive pulmonary disease with (acute) exacerbation] 05-02-2024 Chronic E Codes: Natural/environment (1 source) Exposure to other specified factors, initial encounter; Translations: [EXPOSURE OTHER SPEC FACTORS INITIAL] Onset: 11-28-2022 Episodic E Codes: Unspecified (1 source) Blood alcohol level of 200-239 mg/100 ml; Translations: [BLOOD ALCOHOL LVL 200-239 MG/100 ML] Onset: 11-28-2022 Episodic Essential hypertension (6 sources) Essential (primary) [...] 11-24-2022 Episodic Other aftercare (1 source) Other keno terminal operator (current) drug therapy; Translations: [OTH RESIDENTIAL CURRENT DRUG THERAPY] Onset: 11-28-2022 Episodic Other nervous system disorders (2 sources) Other chronic pain; Translations: [Other chronic pain] Onset: 05-27-2017 Chronic Other nervous system disorders (4 sources) Metabolic encephalopathy; Translations: [Metabolic encephalopathy] 05-02-2024 Chronic Other nervous system disorders (1 source) Metabolic encephalopathy; Translations: [Metabolic encephalopathy] 05-06-2024 Chronic Other nervous system disorders (2 sources) H/O: epilepsy; Translations: [Personal history of other diseases of the nervous system and sense organs] 06-07-2025 Episodic Other nervous system disorders (1 source) Personal history of other diseases of the nervous system and sense organs; Translations: [Personal history of other diseases of the nervous system and sense organs] Onset: 06-07-2025 Episodic Pneumonia (except that caused by tuberculosis or sexually transmitted disease) (10 sources) Community acquired pneumonia; Translations: [Pneumonia, unspecified organism] 05-02-2024 Episodic Residual codes; unclassified (4 sources) Tobacco user; Translations: [Tobacco use] 05-02-2024 Episodic Residual codes; unclassified (1 source) Tobacco use; Translations: [Tobacco use disorder] 05-06-2024 Episodic Residual codes; unclassified (3 sources) Altered mental status; Translations: [Altered mental status, unspecified] 11-17-2024 Episodic Respiratory failure; insufficiency; arrest (adult) (5 sources) Acute hypoxemic and hypercapnic respiratory failure; Translations: [Acute respiratory failure with hypoxia] 05-02-2024 Episodic Skull and face fractures (3 sources) Fracture of nasal bones, initial encounter for closed fracture; Translations: [Fracture of orbital floor, right side, initial encounter for closed fracture] Onset: 11-28-2022 Episodic Spondylosis; intervertebral disc disorders; other back problems (3 sources) Cervicalgia; Translations: [Low back pain] Onset: 05-27-2017 Episodic Substance-related disorders (17 sources) Opioid dependence, uncomplicated; Translations: [Other stimulant abuse, uncomplicated] Onset: 01-29-2018 05-02-2024 Chronic Thyroid disorders (1 source) Hypothyroidism, unspecified; Translations: [HYPOTHYROIDISM UNSPECIFIED] Onset: 11-28-2022 Chronic Past or Other Problems Problem Classification Problem Date Documented Da te Episodic/Chronic Epilepsy; convulsions (6 sources) Seizure; Translations: [Unspecified convulsions] Onset: 11-18-2024 11-17-2024 Episodic Other screening for suspected conditions (not mental disorders or infectious disease) (8 sources) Raised cardiac enzyme or marker; Translations: [Other specified abnormal findings of blood chemistry] Onset: 11-18-2024 05-02-2024 Episodic Residual codes; unclassified (4 sources) Altered mental status, unspecified; Translations: [Altered mental status] Onset: 07-15-2024 11-17-2024 Episodic Results Test Name Value Interpretation Reference Range Facility Arterial Blood [place] 025 ABG Base Excess 0.2 mmol/L Normal -3.0-3.0 [facility] Comment on above: Performed By: #### P RL, HS TROP, CBC, CMP #### [address] ABG Frac Inspired O2 Normal [facility] Comment on above: Performed By: #### P RL, HS TROP, CBC, CMP #### [address] ABG Liter Flow 6L Normal [facility] Comment on above: Performed By: #### P RL, HS TROP, CBC, CMP #### [address] ABG Oxygen Content 9.8 mmol/L High 6.6-9.7 [facility] Comment on above: Performed By: #### P RL, HS TROP, CBC, CMP #### [address] ABG Oxygen Saturation 96.5 % Normal 95.0-100.0 [facility] Comment on above: Performed By: #### P RL, HS TROP, CBC, CMP #### [address] ABG PCO2 41.3 mm[Hg] Normal 35.0-45.0 [facility] Comment on above: Performed By: #### P RL, HS TROP, CBC, CMP #### [address] ABG PH 7.40 Normal 7.35-7.45 [facility] Comment on above: Performed By: #### P RL, HS TROP, CBC, CMP #### [address] ABG PO2 87.8 mm[Hg] Normal 80.0-100.0 [facility] Comment on above: Performed By: #### P RL, HS TROP, CBC, CMP #### [address] CO2 [Moles/Vol] 26.3 mmol/L Normal 23.0-27.0 [facility] Comment on above: Performed By: #### P RL, HS TROP, CBC, CMP #### [address] HCO3 (Bld) [Moles/Vol] 25.0 mmol/L Normal 23.0-29.0 [facility] Comment on above: Performed By: #### P RL, HS TROP, CBC, CMP #### [address] Oxygen Device Nasal Cannula Normal [facility] Comment on above: Performed By: #### P RL, HS TROP, CBC, CMP #### [address] Respiratory Critical Normal [facility] Comment on above: Result Comment: Crit ical Value called on: 06/07/2025 at 13:57 PERFORMED BY: [place] [address] PATHOLOGIST BEAUTY DIRECTOR CELESTE GERMAN M.D. Performed By: #### P RL, HS TROP, CBC, CMP #### [address] VBG Draw Site Right Radial Normal [facility] Comment on above: Performed By: #### P RL, HS TROP, CBC, CMP #### [address] Complete Blood Count Auto Di ffon 06-07-2025 Basophils (Bld) [#/Vol] 0.0 10*3/uL Normal 0.0-0.2 [facility] Comment on above: Result Comment: PERF ORMED BY: [place] [address] PATHOLOGIST BEAUTY DIRECTOR CELESTE GERMAN M.D. Performed By: #### P RL, HS TROP, CBC, CMP #### [address] Basophils/100 WBC (Bld) 0.4 % Normal . [facility] Comment on above: Performed By: #### P RL, HS TROP, CBC, CMP #### [address] Eosinophils (Bld) [#/Vol] 0.0 10*3/uL Normal 0.0-0.45 [facility] Comment on above: Performed By: #### P RL, HS TROP, CBC, CMP #### [address] Eosinophils/100 WBC (Bld) 0.1 % Normal . [facility] Comment on above: Performed By: #### P RL, HS TROP, CBC, CMP #### [address] Erythrocyte distribution width (RBC) [Ratio] 15.5 % High 12.0-14.8 [facility] Comment on above: Performed By: #### P RL, HS TROP, CBC, CMP #### [address] Hematocrit (Bld) [Volume fraction] 46.4 % Normal 38.8-50.0 [facility] Comment on above: Performed By: #### P RL, HS TROP, CBC, CMP #### [address] Hemoglobin (Bld) [Mass/Vol] 15.2 g/dL Normal 13.0-17.0 [facility] Comment on above: Performed By: #### P RL, HS TROP, CBC, CMP #### [address] Lymphocytes (Bld) [#/Vol] 0.5 10*3/uL Low 1.00-4.8 [facility] Comment on above: Performed By: #### P RL, HS TROP, CBC, CMP #### [place] [id number] [place] Lymphocytes/100 WBC (Bld) 7.4 % Normal . [facility] Comment on above: Performed By: #### P RL, HS TROP, CBC, CMP #### [address] MCH (RBC) [Entitic mass] 29.6 pg Normal 27.5-35.2 [facility] Comment on above: Performed By: #### P RL, HS TROP, CBC, CMP #### [address] MCV (RBC) [Entitic vol] 90.3 fL Normal 83.5-101 [facility] Comment on above: Performed By: #### P RL, HS TROP, CBC, CMP #### [address] Mean Corpuscular HGB Conc 32.7 g/dL Normal 32.5-35.6 [facility] Comment on above: Performed By: #### P RL, HS TROP, CBC, CMP #### [address] Monocytes (Bld) [#/Vol] 0.2 10*3/uL Normal 0.0-0.8 [facility] Comment on above: Performed By: #### P RL, HS TROP, CBC, CMP #### [address] Monocytes/100 WBC (Bld) 3.3 % Normal . [facility] Comment on above: Performed By: #### P RL, HS TROP, CBC, CMP #### [address] Neutrophils (Bld) [#/Vol] 5.8 10*3/uL Normal 1.8-7.7 [facility] Comment on above: Performed By: #### P RL, HS TROP, CBC, CMP #### [address] Neutrophils/100 WBC (Bld) 88.8 % Normal . [facility] Comment on above: Performed By: #### P RL, HS TROP, CBC, CMP #### [address] NRBC% 0.1 /100{WBC} Normal 0-0.5 [facility] Comment on above: Performed By: #### P RL, HS TROP, CBC, CMP #### [address] Platelet mean volume (Bld) [Entitic vol] 6.7 fL Normal 6.6-10.1 [facility] Comment on above: Performed By: #### P RL, HS TROP, CBC, CMP #### [address] Platelets (Bld) [#/Vol] 225 10*3/uL Normal 150-450 [facility] Comment on above: Performed By: #### P RL, HS TROP, CBC, CMP #### [address] RBC (Bld) [#/Vol] 5.14 10*6/uL Normal 3.90-5.60 [facility] Comment on above: Performed By: #### P RL, HS TROP, CBC, CMP #### [address] WBC (Bld) [#/Vol] 6.6 10*3/uL Normal 4.1-10.5 [facility] Comment on above: Performed By: #### P RL, HS TROP, CBC, CMP #### [address] White Blood Count 6.6 [CFU]/mL Normal 4.1-10.5 [facility] Comment on above: Performed By: #### P RL, HS TROP, CBC, CMP #### [address] Comprehensive Metabolic Pane wilner 06-07-2025 Albumin [Mass/Vol] 4.3 g/dL Normal 3.5-5.7 [facility] Comment on above: Performed By: #### P RL, HS TROP, CBC, CMP #### [address] Albumin/Globulin [Mass ratio] 1.5 {ratio} Normal [facility] Comment on above: Performed By: #### P RL, HS TROP, CBC, CMP #### [facility] [address] ALP [Catalytic activity/Vol] 97 U/L Normal 34-104 [facility] Comment on above: Performed By: #### P RL, HS TROP, CBC, CMP #### [address] ALT [Catalytic activity/Vol] 22 U/L Normal 7-52 [facility] Comment on above: Performed By: #### P RL, HS TROP, CBC, CMP #### [address] Anion gap [Moles/Vol] 9.2 mmol/L Normal 6.0-15.0 [facility] Comment on above: Performed By: #### P RL, HS TROP, CBC, CMP #### [address] AST [Catalytic activity/Vol] 57 U/L High 13-39 [facility] Comment on above: Performed By: #### P RL, HS TROP, CBC, CMP #### [address] Bilirubin [Mass/Vol] 0.8 mg/dL Normal 0.3-1.0 [facility] Comment on above: Performed By: #### P RL, HS TROP, CBC, CMP #### [address] Calcium [Mass/Vol] 9.3 mg/dL Normal 8.6-10.3 [facility] Comment on above: Performed By: #### P RL, HS TROP, CBC, CMP #### [place] [address] [place] Chloride [Moles/Vol] 98 mmol/L Normal 98-107 [facility] Comment on above: Performed By: #### P RL, HS TROP, CBC, CMP #### [address] CO2 [Moles/Vol] 30.8 mmol/L Normal 21.0-31.0 [facility] Comment on above: Performed By: #### P RL, HS TROP, CBC, CMP #### [address] Creatinine [Mass/Vol] 1.39 mg/dL High 0.70-1.30 [facility] Comment on above: Performed By: #### P RL, HS TROP, CBC, CMP #### [address] Creatinine Clr Calc Pharmacy 51.68 Normal [facility] Comment on above: Result Comment: PERF ORMED BY: [place] [address] PATHOLOGIST BEAUTY DIRECTOR CELESTE GERMAN M.D. Performed By: #### P RL, HS TROP, CBC, CMP #### [address] GFR/1.73 sq M.predicted MDRD (S/P/Bld) [Vol rate/Area] 55.911 mL/min/{1.73_m2} Normal [facility] Comment on above: Performed By: #### P RL, HS TROP, CBC, CMP #### [address] Globulin (S) [Mass/Vol] 2.9 g/dL Normal [facility] Comment on above: Performed By: #### P RL, HS TROP, CBC, CMP #### [address] Glucose [Mass/Vol] 189 mg/dL High 70-100 [facility] Comment on above: Result Comment: [place] Glucose Reference Range is dependent on time and content of last meal. Glucose of more than 200 mg/dL in a nonstressed, ambulatory subject supports the diagnosis of Diabetes Mellitus. ADA recommended reference range Performed By: #### P RL, HS TROP, CBC, CMP #### [place] [address] [place] Potassium [Moles/Vol] 4.0 mmol/L Normal 3.5-5.1 [facility] Comment on above: Performed By: #### P RL, HS TROP, CBC, CMP #### [address] Protein [Mass/Vol] 7.2 g/dL Normal 6.4-8.9 [facility] Comment on above: Performed By: #### P RL, HS TROP, CBC, CMP #### [address] Sodium [Moles/Vol] 134 mmol/L Low 136-145 [facility] Comment on above: Performed By: #### P RL, HS TROP, CBC, CMP #### [address] Urea nitrogen [Mass/Vol] 17 mg/dL Normal 7-25 [facility] Comment on above: Performed By: #### P RL, HS TROP, CBC, CMP #### [address] Drug Screen,Urineon 06-07-20 25 Amphetamine Screen,Urine Positive Normal Negative [facility] Comment on above: Performed By: #### U RDS #### [address] Barbiturate Screen,Urine Negative Normal Negative [facility] Comment on above: Performed By: #### U RDS #### [place] [address] [place] Benzodiazepines Screen,Urine Positive Normal Negative [facility] Comment on above: Performed By: #### U RDS #### [place] [address] [place] Cannabinoid Screen,Urine Positive Normal Negative [facility] Comment on above: Result Comment: Thes e are unconfirmed results and should not be used for legal purposes. Drug Cut-Off Concentration: AMPH 1000 ng/mL BHASKAR 200 ng/mL RIKKI 200 ng/mL COCM 300 ng/mL OP 300 ng/mL PCP 25 ng/mL THC 20 ng/mL PERFORMED BY: [place] [address] PATHOLOGIST BEAUTY DIRECTOR CELESTE GERMAN M.D. Performed By: #### U RDS #### [address] Cocaine Screen,Urine Negative Normal Negative [facility] Comment on above: Performed By: #### U RDS #### [address] Opiate Screen,Urine Positive Normal Negative [facility] Comment on above: Performed By: #### U RDS #### [address] Phencyclidine Screen,Urine Negative Normal Negative [facility] Comment on above: Performed By: #### U RDS #### [address] ECG 12 lead ECGon 06-07-2025 ECG 12 [place] [address] Electrocardiograph Report Signed Patient: Aaron Olivarez MR#: [id number] 00 : 1960 Acct:[id number] Age/Sex: 64 / M ADM Date: 06/07/25 Loc: Room: [address] [place] [address] Type: DIS IN Attending Dr: Usman Driver MD Ordering Provider: Usman Driver MD Date of Service: 06/07/25 ECG/ECG 12 lead ECG: prn ekg Copies to: Test Reason : Blood Pressure : 100/70 mmHG Vent. Rate : 88 BPM Atrial Rate : 249 BPM P-R Int : * ms QRS Dur : 84 ms QT Int : 386 ms P-R-T Axes : * 76 127 degrees QTcB Int : 467 ms Atrial flutter with variable AV block Nonspecific ST abnormality Abnormal ECG Confirmed by Emy Rae ([id number]) on 06/11/2025 1:57:46 PM Referred By: Electronically Signed By: Emy Rae Transcribed By: MUS Signed By Emy Rae MD 5 1357 Normal [facility] ECG 12 lead ECG [address] [place] [address] Electrocardiograph Report Signed Patient: Aaron Olivarez MR#: [id number] 00 : 1960 Acct:[id number] Age/Sex: 64 / M ADM Date: 06/07/25 Loc: Room: [address] [place] [address] Type: ADM IN Attending Dr: Usman Driver MD Ordering Provider: Fely Dallas DO Date of Service: 06/07/25 ECG/ECG 12 lead ECG: Post Angioplasty Procedure Copies to: Test Reason : Blood Pressure : 139/91 mmHG Vent. Rate : 94 BPM Atrial Rate : 500 BPM P-R Int : * ms QRS Dur : 80 ms QT Int : 396 ms P-R-T Axes : * 79 92 degrees QTcB Int : 495 ms Atrial fibrillation with premature ventricular or aberrantly conducted complexes ST elevation, consider inferior injury or acute infarct ST elevation, consider anterior injury or acute infarct Prolonged QT ACUTE AK / STEMI Abnormal ECG When compared with ECG of 17-Nov-2024 08:24, Atrial fibrillation has replaced Sinus rhythm ST elevation has replaced ST depression in Inferior leads Non-specific change in ST segment in Lateral leads Confirmed by JOAN CHISHOLM MD ([id number]) on 06/07/2025 11:48:26 AM Referred By: Electronically Signed By: JOAN CHISHOLM MD Transcribed By: MUS Signed By Joan Chisholm MD 0 06/07/25 1148 Normal [facility] Glucose Poct Glucometerson 0 06-07-2025 Commemt1 Glu2: Cleaned Meter Normal The [facility] Comment on above: Result Comment: PERF ORMED BY: [place] [address] PATHOLOGIST BEAUTY DIRECTOR CELESTE GERMAN M.D. Performed By: #### G GERI #### Point of Care testing , Glucose [Mass/Vol] 91 mg/dL Normal [facility] Comment on above: Result Comment: [place] Glucose Reference Range is dependent on time and content of last meal. Glucose of more than 200 mg/dL in a nonstressed, ambulatory subject supports the diagnosis of Diabetes Mellitus. Performed By: #### G LULS #### Point of Care testing , Troponin I High Sensitivityo n 06-07-2025 Troponin I High Sensitivity 18954 Off scale high 0-20 [facility] Comment on above: Result Comment: Crit ical Result [id number] Called to and read back by: JANY SANDOVAL at: 06/07/2025 17:28:45 by:[id number] The Troponin units of report have been changed to meet the Chest Pain Accreditation requirement, element EC5.M1l2. Troponin units are changed from pg/ml to ng/L. Also, the decimal is removed and results are in whole numbers. PERFORMED BY: [id number] PATHOLOGIST BEAUTY DIRECTOR CELESTE GERMAN M.D. Performed By: #### H S TROP #### [address] Troponin I High Sensitivity [address] Off scale high 0-20 [facility] Comment on above: Order Comment: per r n [place] wait till they sedate pt Result Comment: Crit ical Result [id number] Called to and read back by: JANY SANDOVAL at: 06/07/2025 15:32:31 by:[id number] The Troponin units of report have been changed to meet the Chest Pain Accreditation requirement, element EC5.M1l2. Troponin units are changed from pg/ml to ng/L. Also, the decimal is removed and results are in whole numbers. PERFORMED BY: [id number] PATHOLOGIST BEAUTY DIRECTOR CELESTE GERMAN M.D. Performed By: #### P RL, HS TROP, CBC, CMP #### [facility] [address] [place] [address] Troponin I High Sensitivity 6616 Off scale high 0-20 [facility] Comment on above: Order Comment: rn wi ll call when pt is back in room Result Comment: Crit ical Result : Called to and read back by: JANY SANDOVAL at: 06/07/2025 11:59:11 by:[email or web address] The Troponin units of report have been changed to meet the Chest Pain Accreditation requirement, element EC5.M1l2. Troponin units are changed from pg/ml to ng/L. Also, the decimal is removed and results are in whole numbers. PERFORMED BY: [place] [address] PATHOLOGIST BEAUTY DIRECTOR CELESTE GERMAN M.D. Performed By: #### P RL, HS TROP, CBC, CMP #### [address] Basic Metabolic Panelon 01-0 Anion gap [Moles/Vol] 13.2 mmol/L Normal 6.0-15.0 e [facility] Comment on above: Performed By: #### P RL, HS TROP, CBC, CMP #### [address] Calcium [Mass/Vol] 9.7 mg/dL Normal 8.6-10.3 [facility] Comment on above: Performed By: #### P RL, HS TROP, CBC, CMP #### [address] Chloride [Moles/Vol] 105 mmol/L Normal 98-107 [facility] Comment on above: Performed By: #### P RL, HS TROP, CBC, CMP #### [address] CO2 [Moles/Vol] 25.2 mmol/L Normal 21.0-31.0 [facility] Comment on above: Performed By: #### P RL, HS TROP, CBC, CMP #### [address] Creatinine [Mass/Vol] 0.81 mg/dL Normal 0.70-1.30 [facility] Comment on above: Performed By: #### P RL, HS TROP, CBC, CMP #### [address] Creatinine Clr Calc Pharmacy 98.46 Normal [facility] Comment on above: Performed By: #### P RL, HS TROP, CBC, CMP #### [facility] [address] [place] [address] [place] GFR/1.73 sq M.predicted MDRD (S/P/Bld) [Vol rate/Area] mL/min/{1.73_m2} Normal [facility] Comment on above: Performed By: #### P RL, HS TROP, CBC, CMP #### [facility] [address] [place] [address] [place] Glucose [Mass/Vol] 103 mg/dL High 70-100 [facility] Comment on above: Result Comment: [facility] Glucose Reference Range is dependent on time and content of last meal. Glucose of more than 200 mg/dL in a nonstressed, ambulatory subject supports the diagnosis of Diabetes Mellitus. ADA recommended reference range Performed By: #### P RL, HS TROP, CBC, CMP #### [facility] [address] Potassium [Moles/Vol] 3.4 mmol/L Low 3.5-5.1 [facility] Comment on above: Performed By: #### P RL, HS TROP, CBC, CMP #### [facility] [address] [place] [address] [place] Sodium [Moles/Vol] 140 mmol/L Normal 136-145 [facility] Comment on above: Performed By: #### P RL, HS TROP, CBC, CMP #### [facility] [address] [place] [address] [place] Urea nitrogen [Mass/Vol] 19 mg/dL Normal 7-25 [facility] Comment on above: Performed By: #### P RL, HS TROP, CBC, CMP #### [facility] [address] [place] [address] [place] Calcium [Mass/volume] in Ser um or PlasmaOrdered By: Yamila Donald on 11-19-2024 Calcium [Mass/Vol] Calcium [Mass/volume ] in Serum or Plasma 8.6-10.3 [facility] Carbon dioxide, total [Moles /volume] in Serum or PlasmaOrdered By: Yamila Donald on 11-19-2024 CO2 [Moles/Vol] Carbon dioxide, tota l [Moles/volume] in Serum or Plasma 21.0-31.0 [facility] Chloride [Moles/volume] in S andrei or PlasmaOrdered By: Yamila Donald on 11-19-2024 Chloride [Moles/Vol] Chloride [Moles/vol ume] in Serum or Plasma 98-107 [facility] Creatinine [Mass/volume] in Serum or PlasmaOrdered By: Yamila Donald on 11-19-2024 Creatinine [Mass/Vol] Creatinine [Mass/v olume] in Serum or Plasma 0.70-1.30 [facility] Erythrocyte distribution wid th Auto (RBC) [Ratio]Ordered By: Yamila Donald on 11-19-2024 Erythrocyte distribution width (RBC) [Ratio] Erythrocyte distribution width [Ratio] by Automated count 12.0-14.8 [facility] Glucose [Mass/volume] in Ser um or PlasmaOrdered By: Yamila Donald on 11-19-2024 Glucose [Mass/Vol] Glucose [Mass/volume ] in Serum or Plasma High 70-100 [facility] Comment on above: ADA recommended refe rence rangeRandom Glucose Reference Range is dependent on time and content of last meal. Glucose of more than 200 mg/dL in a nonstressed, ambulatory subject supports the diagnosis of Diabetes Mellitus. Hematocrit Auto (Bld) [Volum e fraction]Ordered By: Yamila Donald on 11-19-2024 Hematocrit (Bld) [Volume fraction] Hematocrit [Volume Fraction] of Blood by Automated count 38.8-50.0 [facility] Hemoglobin [Mass/volume] in BloodOrdered By: Yamila Donald on 11-19-2024 Hemoglobin (Bld) [Mass/Vol] Hemoglobin [Mass/volume] in Blood 13.0-17.0 [facility] Hemogram CBC Without Diffon 11-19-2024 Erythrocyte distribution width (RBC) [Ratio] 13.7 % Normal 12.0-14.8 [facility] Comment on above: Performed By: #### P RL, HS TROP, CBC, CMP #### [facility] [address] Hematocrit (Bld) [Volume fraction] 45.8 % Normal 38.8-50.0 [facility] Comment on above: Performed By: #### P RL, HS TROP, CBC, CMP #### [address] Hemoglobin (Bld) [Mass/Vol] 15.4 g/dL Normal 13.0-17.0 [facility] Comment on above: Performed By: #### P RL, HS TROP, CBC, CMP #### [address] MCH (RBC) [Entitic mass] 29.0 pg Normal 27.5-35.2 [facility] Comment on above: Performed By: #### P RL, HS TROP, CBC, CMP #### [address] MCV (RBC) [Entitic vol] 86.4 fL Normal 83.5-101 [facility] Comment on above: Performed By: #### P RL, HS TROP, CBC, CMP #### [address] Mean Corpuscular HGB Conc 33.5 g/dL Normal 32.5-35.6 [facility] Comment on above: Performed By: #### P RL, HS TROP, CBC, CMP #### [address] Platelet mean volume (Bld) [Entitic vol] 7.9 fL Normal 6.6-10.1 [facility] Comment on above: Result Comment: PERF ORMED BY: [place] [address] PATHOLOGIST BEAUTY DIRECTOR VCÍTOR LUCERO M.D. Performed By: #### P RL, HS TROP, CBC, CMP #### [address] Platelets (Bld) [#/Vol] 203 10*3/uL Normal 150-450 [facility] Comment on above: Performed By: #### P RL, HS TROP, CBC, CMP #### [address] [address] [place] RBC (Bld) [#/Vol] 5.31 10*6/uL Normal 3.90-5.60 [facility] Comment on above: Performed By: #### P RL, HS TROP, CBC, CMP #### [facility] [address] WBC (Bld) [#/Vol] 8.2 10*3/uL Normal 4.1-10.5 [facility] Comment on above: Performed By: #### P RL, HS TROP, CBC, CMP #### [facility] [address] Leukocytes [#/volume] correc srinivas for nucleated erythrocytes in Blood by Automated counOrdered By: Yamila Donald on 11-19-2024 WBC corrected for nucl RBC Auto (Bld) [#/Vol] Leukocytes [#/volume] corrected for nucleated erythrocytes in Blood by Automated coun 4.1-10.5 [facility] MCH Auto (RBC) [Entitic mass ]Ordered By: Yamila Donald on 11-19-2024 MCH (RBC) [Entitic mass] MCH [Entitic mass] by Automated count 27.5-35.2 [facility] MCHC Auto (RBC) [Mass/Vol]Or dered By: Yamila Donald on 11-19-2024 MCHC (RBC) [Mass/Vol] MCHC [Mass/volume] by Automated count 32.5-35.6 [facility] MCV Auto (RBC) [Entitic vol] Ordered By: Yamila Donald on 11-19-2024 MCV (RBC) [Entitic vol] MCV [Entitic volume] by Automated count 83.5-101 [facility] MR head/brain wo conon 11-19 MR head/brain wo con [facility] [place] [address] MRI Report Signed Patient: Aaron Olivarez MR#: [id number] 00 : 1960 Acct:[id number] Age/Sex: 64 / M ADM Date: 11/18/24 Loc: Room: [address] [place] [address] Type: ADM IN Attending Dr: Yamila Donald [...] Regino Mckinley M.D.11/19/2024 4:50 PM Dictation Location: [place] [address] Transcribed By: [facility] 11/19/24 1650 Dictated By: Regino Mckinley MD 11/19/24 1644 Signed By: 11/19/24 1650 Normal [facility] Magnesiumon 11-19-2024 Magnesium [Mass/Vol] 1.7 mg/dL Low 1.9-2.7 [facility] Comment on above: Result Comment: PERF ORMED BY: [place] [address] PATHOLOGIST BEAUTY DIRECTOR VÍCTOR LUCERO M.D. Performed By: #### P RL, HS TROP, CBC, CMP #### [address] Magnesium [Mass/volume] in S andrei or PlasmaOrdered By: Yamila Donald on 11-19-2024 Magnesium [Mass/Vol] Magnesium [Mass/vol ume] in Serum or Plasma Low 1.9-2.7 [facility] Magnetic resonance imaging r eportOrdered By: Regino Mckinley on 11-19-2024 Study report [facility] [place] [address] MRI Report Signed Patient: Aaron Olivarez MR#: [id number] : 1960 Acct:[id number] Age/Sex: 64 / M ADM Date: 5 Loc: Room: [address] [place] [address] Type: ADM IN Attending Dr: Yamila Donald [...] Regino Mckinley M.D.11/19/2024 4:50 PM Dictation Location: [place] [address] Transcribed By: YNES 11/19/241649 Dictated By: Regino Mckinley MD 11/19/241643 Signed By: 11/19/241649 [facility] Work Phone: No Panel InformationOrdered By: Yamila Donald on 11-19-2024 Estimated GFR (CKD-EPI) > 60.0 mL/Min [facility] Creatinine Clearance (Chem 98.46 [facility] Platelet mean volume Auto (B ld) [Entitic vol]Ordered By: Yamila Donald on 11-19-2024 Platelet mean volume (Bld) [Entitic vol] Platelet mean volume [Entitic volume] in Blood by Automated count 6.6-10.1 [facility] Platelets Auto (Bld) [#/Vol] Ordered By: Yamila Donald on 11-19-2024 Platelets (Bld) [#/Vol] Platelets [#/volume] in Blood by Automated count 150-450 [facility] Potassium [Moles/volume] in Serum or PlasmaOrdered By: Yamila Donald on 11-19-2024 Potassium [Moles/Vol] Potassium [Moles/v olume] in Serum or Plasma Low 3.5-5.1 [facility] RBC Auto (Bld) [#/Vol]Ordere d By: Yamila Donald on 11-19-2024 RBC (Bld) [#/Vol] Erythrocytes [#/volu me] in Blood by Automated count 3.90-5.60 [facility] Serum or plasma anion gap de terminationOrdered By: Yamila Donald on 11-19-2024 Anion gap [Moles/Vol] Serum or plasma an ion gap determination 6.0-15.0 [facility] Sodium [Moles/volume] in Ser um or PlasmaOrdered By: Yamila Doanld on 11-19-2024 Sodium [Moles/Vol] Sodium [Moles/volume ] in Serum or Plasma 136-145 [facility] Urea nitrogen [Mass/volume] in Serum or PlasmaOrdered By: Yamila Donald on 11-19-2024 Urea nitrogen [Mass/Vol] Urea nitrogen [Mass/volume] in Serum or Plasma 7-25 [facility] Alanine aminotransferase [En zymatic activity/volume] in Serum or PlasmaOrdered By: Chaz Frey on 11-18-2024 ALT [Catalytic activity/Vol] Alanine aminotransferase [Enzymatic activity/volume] in Serum or Plasma 7-52 [facility] Albumin [Mass/volume] in Ser um or Plasma by Bromocresol green (BCG) dye binding methoOrdered By: Chaz Frey on 11-18-2024 Albumin BCG dye [Mass/Vol] Albumin [Mass/volume] in Serum or Plasma by Bromocresol green (BCG) dye binding metho 3.5-5.7 [facility] Alkaline phosphatase [Enzyma tic activity/volume] in Serum or PlasmaOrdered By: Chaz Frey on 11-18-2024 ALP [Catalytic activity/Vol] Alkaline phosphatase [Enzymatic activity/volume] in Serum or Plasma 34-104 [facility] Aspartate aminotransferase [ Enzymatic activity/volume] in Serum or PlasmaOrdered By: Chaz Frey on 11-18-2024 AST [Catalytic activity/Vol] Aspartate aminotransferase [Enzymatic activity/volume] in Serum or Plasma 13-39 [facility] Basophils Auto (Bld) [#/Vol] Ordered By: Chaz Frey on 11-18-2024 Basophils (Bld) [#/Vol] Automated basophil count 0.0-0.2 [facility] Basophils/100 WBC Auto (Bld) Ordered By: Chaz Frey on 11-18-2024 Basophils/100 WBC (Bld) Automated basophil % . [facility] Bilirubin.total [Mass/volume ] in Serum or PlasmaOrdered By: Chaz Frey on 11-18-2024 Bilirubin [Mass/Vol] Bilirubin.total [Mass/volume] in Serum or Plasma High 0.3-1.0 [facility] Calcium [Mass/volume] in Ser um or PlasmaOrdered By: Chaz Frey on 11-18-2024 Calcium [Mass/Vol] Calcium [Mass/volume ] in Serum or Plasma 8.6-10.3 [facility] Carbon dioxide, total [Moles /volume] in Serum or PlasmaOrdered By: Chaz Frey on 11-18-2024 CO2 [Moles/Vol] Carbon dioxide, tota l [Moles/volume] in Serum or Plasma High 21.0-31.0 [facility] Chloride [Moles/volume] in S andrei or PlasmaOrdered By: Chaz Frey on 11-18-2024 Chloride [Moles/Vol] Chloride [Moles/vol ume] in Serum or Plasma 98-107 [facility] Complete Blood Count Auto Di ffon 11-18-2024 Basophils (Bld) [#/Vol] 0.0 10*3/uL Normal 0.0-0.2 [facility] Comment on above: Result Comment: PERF ORMED BY: [place] [address] PATHOLOGIST BEAUTY DIRECTOR VÍCTOR LUCERO M.D. Performed By: #### P RL, HS TROP, CBC, CMP #### [address] Basophils/100 WBC (Bld) 0.6 % Normal . [facility] Comment on above: Performed By: #### P RL, HS TROP, CBC, CMP #### [address] Eosinophils (Bld) [#/Vol] 0.0 10*3/uL Normal 0.0-0.45 [facility] Comment on above: Performed By: #### P RL, HS TROP, CBC, CMP #### [address] Eosinophils/100 WBC (Bld) 0.1 % Normal . [facility] Comment on above: Performed By: #### P RL, HS TROP, CBC, CMP #### [address] Erythrocyte distribution width (RBC) [Ratio] 13.3 % Normal 12.0-14.8 [facility] Comment on above: Performed By: #### P RL, HS TROP, CBC, CMP #### [address] Hematocrit (Bld) [Volume fraction] 43.0 % Normal 38.8-50.0 [facility] Comment on above: Performed By: #### P RL, HS TROP, CBC, CMP #### [address] Hemoglobin (Bld) [Mass/Vol] 14.6 g/dL Normal 13.0-17.0 [facility] Comment on above: Performed By: #### P RL, HS TROP, CBC, CMP #### [address] Lymphocytes (Bld) [#/Vol] 1.4 10*3/uL Normal 1.00-4.8 [facility] Comment on above: Performed By: #### P RL, HS TROP, CBC, CMP #### [address] Lymphocytes/100 WBC (Bld) 20.9 % Normal . [facility] Comment on above: Performed By: #### P RL, HS TROP, CBC, CMP #### [address] MCH (RBC) [Entitic mass] 29.1 pg Normal 27.5-35.2 [facility] Comment on above: Performed By: #### P RL, HS TROP, CBC, CMP #### [address] MCV (RBC) [Entitic vol] 85.8 fL Normal 83.5-101 [facility] Comment on above: Performed By: #### P RL, HS TROP, CBC, CMP #### [address] Mean Corpuscular HGB Conc 33.9 g/dL Normal 32.5-35.6 [facility] Comment on above: Performed By: #### P RL, HS TROP, CBC, CMP #### [address] Monocytes (Bld) [#/Vol] 0.6 10*3/uL Normal 0.0-0.8 [facility] Comment on above: Performed By: #### P RL, HS TROP, CBC, CMP #### [place] [address] [place] Monocytes/100 WBC (Bld) 8.5 % Normal . [facility] Comment on above: Performed By: #### P RL, HS TROP, CBC, CMP #### [address] Neutrophils (Bld) [#/Vol] 4.7 10*3/uL Normal 1.8-7.7 [facility] Comment on above: Performed By: #### P RL, HS TROP, CBC, CMP #### [place] [address] [place] Neutrophils/100 WBC (Bld) 69.9 % Normal . [facility] Comment on above: Performed By: #### P RL, HS TROP, CBC, CMP #### [place] [address] [place] NRBC% 0.1 /100{WBC} Normal 0-0.5 [facility] Comment on above: Performed By: #### P RL, HS TROP, CBC, CMP #### [place] [address] [place] Platelet mean volume (Bld) [Entitic vol] 7.6 fL Normal 6.6-10.1 [facility] Comment on above: Performed By: #### P RL, HS TROP, CBC, CMP #### [place] [address] [place] Platelets (Bld) [#/Vol] 216 10*3/uL Normal 150-450 [facility] Comment on above: Performed By: #### P RL, HS TROP, CBC, CMP #### [place] [address] [place] RBC (Bld) [#/Vol] 5.01 10*6/uL Normal 3.90-5.60 [facility] Comment on above: Performed By: #### P RL, HS TROP, CBC, CMP #### [place] [address] [place] WBC (Bld) [#/Vol] 6.7 10*3/uL Normal 4.1-10.5 [facility] Comment on above: Performed By: #### P RL, HS TROP, CBC, CMP #### [address] Comprehensive Metabolic Pane wilner 11-18-2024 Albumin [Mass/Vol] 3.9 g/dL Normal 3.5-5.7 [facility] Comment on above: Performed By: #### P RL, HS TROP, CBC, CMP #### [address] Albumin/Globulin [Mass ratio] 1.6 {ratio} Normal [facility] Comment on above: Performed By: #### P RL, HS TROP, CBC, CMP #### [address] ALP [Catalytic activity/Vol] 93 U/L Normal 34-104 [facility] Comment on above: Performed By: #### P RL, HS TROP, CBC, CMP #### [address] ALT [Catalytic activity/Vol] 10 U/L Normal 7-52 [facility] Comment on above: Performed By: #### P RL, HS TROP, CBC, CMP #### [address] Anion gap [Moles/Vol] 9.7 mmol/L Normal 6.0-15.0 [facility] Comment on above: Performed By: #### P RL, HS TROP, CBC, CMP #### [address] AST [Catalytic activity/Vol] 16 U/L Normal 13-39 [facility] Comment on above: Performed By: #### P RL, HS TROP, CBC, CMP #### [address] Bilirubin [Mass/Vol] 1.2 mg/dL High 0.3-1.0 [facility] Comment on above: Performed By: #### P RL, HS TROP, CBC, CMP #### [facility] [address] Calcium [Mass/Vol] 9.4 mg/dL Normal 8.6-10.3 [facility] Comment on above: Performed By: #### P RL, HS TROP, CBC, CMP #### [facility] [address] Chloride [Moles/Vol] 105 mmol/L Normal 98-107 [facility] Comment on above: Performed By: #### P RL, HS TROP, CBC, CMP #### [address] CO2 [Moles/Vol] 31.4 mmol/L High 21.0-31.0 [facility] Comment on above: Performed By: #### P RL, HS TROP, CBC, CMP #### [place] [address] [place] Creatinine [Mass/Vol] 1.10 mg/dL Normal 0.70-1.30 [facility] Comment on above: Performed By: #### P RL, HS TROP, CBC, CMP #### [place] [address] [place] Creatinine Clr Calc Pharmacy 72.51 Normal [facility] Comment on above: Performed By: #### P RL, HS TROP, CBC, CMP #### [place] [address] [place] GFR/1.73 sq M.predicted MDRD (S/P/Bld) [Vol rate/Area] mL/min/{1.73_m2} Normal [facility] Comment on above: Performed By: #### P RL, HS TROP, CBC, CMP #### [place] [address] [place] Globulin (S) [Mass/Vol] 2.4 g/dL Normal [facility] Comment on above: Performed By: #### P RL, HS TROP, CBC, CMP #### [facility] [address] [place] [address] [place] Glucose [Mass/Vol] 113 mg/dL High 70-100 [facility] Comment on above: Result Comment: [place] Glucose Reference Range is dependent on time and content of last meal. Glucose of more than 200 mg/dL in a nonstressed, ambulatory subject supports the diagnosis of Diabetes Mellitus. ADA recommended reference range Performed By: #### P RL, HS TROP, CBC, CMP #### [facility] [address] Potassium [Moles/Vol] 4.1 mmol/L Normal 3.5-5.1 [facility] Comment on above: Performed By: #### P RL, HS TROP, CBC, CMP #### [facility] [address] [place] [address] [place] Protein [Mass/Vol] 6.3 g/dL Low 6.4-8.9 [facility] Comment on above: Performed By: #### P RL, HS TROP, CBC, CMP #### [facility] [address] [place] [address] [place] Sodium [Moles/Vol] 142 mmol/L Normal 136-145 [facility] Comment on above: Performed By: #### P RL, HS TROP, CBC, CMP #### [facility] [address] [place] [id number] [place] Urea nitrogen [Mass/Vol] 22 mg/dL Normal 7-25 [facility] Comment on above: Performed By: #### P RL, HS TROP, CBC, CMP #### [facility] [address] [place] [id number] [facility] Creatinine [Mass/volume] in Serum or PlasmaOrdered By: Chaz Frey on 11-18-2024 Creatinine [Mass/Vol] Creatinine [Mass/v olume] in Serum or Plasma 0.70-1.30 [facility] ECH echo transthoracicon [facility] echo transthoracic [facility] [place] [address] Echocardiogram Signed Patient: Aaron Olivarez MR#: [id number] 00 : 1960 Acct:[id number] Age/Sex: 64 / M ADM Date: 11/18/24 Loc: Room: [address] [place] [address] Type: ADM IN Attending Dr: Yamila Donald MD Ordering Provider: Chaz Frey MD Date of Service: 11/17/2404/06/1256 [facility] echo transthoracic: TIA Copies to: MD Chaz [...] 57.0 cm/sec LV V1 VTI: 19.8 cm Transcribed By: PINEDA Performed At: 11/18/24 1424 Signed By: Joan Chisholm MD 11/18/24 1643 Normal [facility] Eosinophils Auto (Bld) [#/Vo l]Ordered By: Chaz Frey on 11-18-2024 Eosinophils (Bld) [#/Vol] Automated eosinophil count 0.0-0.45 [facility] Eosinophils/100 WBC Auto (Bl d)Ordered By: Chaz Frey on 11-18-2024 Eosinophils/100 WBC (Bld) Automated eosinophil % . [facility] Erythrocyte distribution wid th Auto (RBC) [Ratio]Ordered By: Chaz Frey on 11-18-2024 Erythrocyte distribution width (RBC) [Ratio] Erythrocyte distribution width [Ratio] by Automated count 12.0-14.8 [facility] Globulin Calc (S) [Mass/Vol] Ordered By: Chaz Frey on 11-18-2024 Globulin (S) [Mass/Vol] Serum globulin measurement by calculation (mass/volume) [facility] Glucose [Mass/volume] in Ser um or PlasmaOrdered By: Chaz Frey on 11-18-2024 Glucose [Mass/Vol] Glucose [Mass/volume ] in Serum or Plasma High 70-100 [facility] Comment on above: ADA recommended refe rence rangeRandom Glucose Reference Range is dependent on time and content of last meal. Glucose of more than 200 mg/dL in a nonstressed, ambulatory subject supports the diagnosis of Diabetes Mellitus. Hematocrit Auto (Bld) [Volum e fraction]Ordered By: Chaz Frey on 11-18-2024 Hematocrit (Bld) [Volume fraction] Hematocrit [Volume Fraction] of Blood by Automated count 38.8-50.0 [facility] Hemoglobin [Mass/volume] in BloodOrdered By: Chaz Frey on 11-18-2024 Hemoglobin (Bld) [Mass/Vol] Hemoglobin [Mass/volume] in Blood 13.0-17.0 [facility] Leukocytes [#/volume] correc srinivas for nucleated erythrocytes in Blood by Automated counOrdered By: Chaz Frey on 11-18-2024 WBC corrected for nucl RBC Auto (Bld) [#/Vol] Leukocytes [#/volume] corrected for nucleated erythrocytes in Blood by Automated coun 4.1-10.5 [facility] Lymphocytes Auto (Bld) [#/Vo l]Ordered By: Chaz Frey on 11-18-2024 Lymphocytes (Bld) [#/Vol] Lymphocytes [#/volume] in Blood by Automated count 1.00-4.8 [facility] Lymphocytes/100 WBC Auto (Bl d)Ordered By: Chaz Frey on 11-18-2024 Lymphocytes/100 WBC (Bld) Lymphocytes/100 leukocytes in Blood by Automated count . [facility] MCH Auto (RBC) [Entitic mass ]Ordered By: Chaz Frey on 11-18-2024 MCH (RBC) [Entitic mass] MCH [Entitic mass] by Automated count 27.5-35.2 [facility] MCHC Auto (RBC) [Mass/Vol]Or dered By: Chaz Frey on 11-18-2024 MCHC (RBC) [Mass/Vol] MCHC [Mass/volume] by Automated count 32.5-35.6 [facility] MCV Auto (RBC) [Entitic vol] Ordered By: Chaz Frey on 11-18-2024 MCV (RBC) [Entitic vol] MCV [Entitic volume] by Automated count 83.5-101 [facility] Monocytes Auto (Bld) [#/Vol] Ordered By: Chaz Frey on 11-18-2024 Monocytes (Bld) [#/Vol] Automated blood monocyte count 0.0-0.8 [facility] Monocytes/100 WBC Auto (Bld) Ordered By: Chaz Frey on 11-18-2024 Monocytes/100 WBC (Bld) Automated monocyte % . [facility] Neutrophils Auto (Bld) [#/Vo l]Ordered By: Chaz Frey on 11-18-2024 Neutrophils (Bld) [#/Vol] Neutrophils [#/volume] in Blood by Automated count 1.8-7.7 [facility] Neutrophils/100 WBC Auto (Bl d)Ordered By: Chaz Frey on 11-18-2024 Neutrophils/100 WBC (Bld) Automated neutrophil % . [facility] No Panel InformationOrdered By: Chaz Frey on 11-18-2024 Estimated GFR (CKD-EPI) > 60.0 mL/Min [facility] Creatinine Clearance (Chem 72.51 [facility] Nucleated erythrocytes [Pres ence] in Blood by Automated countOrdered By: Chaz Frey on 11-18-2024 Nucleated RBC Auto Ql (Bld) Nucleated erythrocytes [Presence] in Blood by Automated count 0-0.5 [facility] Platelet mean volume Auto (B ld) [Entitic vol]Ordered By: Chaz Frey on 11-18-2024 Platelet mean volume (Bld) [Entitic vol] Platelet mean volume [Entitic volume] in Blood by Automated count 6.6-10.1 [facility] Platelets Auto (Bld) [#/Vol] Ordered By: Chaz Palafox on 11-18-2024 Platelets (Bld) [#/Vol] Platelets [#/volume] in Blood by Automated count 150-450 [facility] Potassium [Moles/volume] in Serum or PlasmaOrdered By: Chaz Frey on 11-18-2024 Potassium [Moles/Vol] Potassium [Moles/v olume] in Serum or Plasma 3.5-5.1 [facility] Prolactinon 11-18-2024 Prolactin 16.14 ng/mL High 2.64-13.13 [facility] Comment on above: Result Comment: PERF ORMED BY: [place] [address] PATHOLOGIST BEAUTY DIRECTOR VÍCTOR LUCERO M.D. Performed By: #### P RL, HS TROP, CBC, CMP #### [address] Prolactin [Mass/volume] in S andrei or PlasmaOrdered By: Chaz Frey on 11-18-2024 Prolactin [Mass/Vol] Prolactin [Mass/vol ume] in Serum or Plasma High 2.64-13.13 [facility] Protein [Mass/volume] in Ser um or PlasmaOrdered By: Chaz Frey on 11-18-2024 Protein [Mass/Vol] Protein [Mass/volume ] in Serum or Plasma Low 6.4-8.9 [facility] RBC Auto (Bld) [#/Vol]Ordere d By: Chaz Frey on 11-18-2024 RBC (Bld) [#/Vol] Erythrocytes [#/volu me] in Blood by Automated count 3.90-5.60 [facility] Serum or plasma albumin/glob ulin mass ratioOrdered By: Chaz Frey on 11-18-2024 Albumin/Globulin [Mass ratio] Serum or plasma albumin/globulin mass ratio [facility] Serum or plasma anion gap de terminationOrdered By: Chaz Frey on 11-18-2024 Anion gap [Moles/Vol] Serum or plasma an ion gap determination 6.0-15.0 [facility] Sodium [Moles/volume] in Ser um or PlasmaOrdered By: Chaz Frey on 11-18-2024 Sodium [Moles/Vol] Sodium [Moles/volume ] in Serum or Plasma 136-145 [facility] Troponin I High Sensitivityo n 11-18-2024 Troponin I High Sensitivity 26.6 pg/mL High 0.0-20.0 [facility] Comment on above: Result Comment: PERF ORMED BY: [place] [address] PATHOLOGIST BEAUTY DIRECTOR VÍCTOR LUCERO M.D. Performed By: #### P RL, HS TROP, CBC, CMP #### [facility] [address] [place] [address] Troponin I.cardiac [Mass/vol ume] in Serum or Plasma by Detection limit <= 0.01 ng/Ordered By: Chaz Frey on 11-18-2024 Troponin I.cardiac DL <= 0.01 ng/mL [Mass/Vol] Troponin I.cardiac [Mass/volume] in Serum or Plasma by Detection limit <= 0.01 ng/ High 0.0-20.0 [facility] Urea nitrogen [Mass/volume] in Serum or PlasmaOrdered By: Chaz Frey on 11-18-2024 Urea nitrogen [Mass/Vol] Urea nitrogen [Mass/volume] in Serum or Plasma 7-25 [facility] WBC Auto (Bld) [#/Vol]Ordere d By: Chaz Frey on 11-18-2024 WBC (Bld) [#/Vol] Leukocytes [#/volume ] in Blood by Automated count 4.1-10.5 [facility] Amphetamine Screen Ql (U)Ord ered By: Ragini Carmona on 11-17-2024 Amphetamines Ql (U) Amphetamines screen High Negativ e [facility] Amphetamine cutoff [Mass/vol ume] in Urine for Confirmatory methodOrdered By: Chaz Frey on 11-17-2024 Amphetamine cutoff Confirm (U) [Mass/Vol] Amphetamine cutoff [Mass/volume] in Urine for Confirmatory method [id number]=451 [facility] Amphetamine+Methamphetamine [Presence] in UrineOrdered By: Chaz Frey on 11-17-2024 Amphetamine+Methamphe tamine Ql (U) Amphetamine+Methamphetamine [Presence] in Urine Abnormal [id number]=072 0 [facility] Comment on above: Amphetamine test inc ludes Amphetamine and Methamphetamine. Amphetamines [Presence] in U rineOrdered By: Chaz Frey on 11-17-2024 Amphetamines Ql (U) Amphetamines [Presen ce] in Urine Abnormal . [facility] Amphetamines [Presence] in U rine by Screen methodOrdered By: Chaz Frey on 11-17-2024 Amphetamines Screen Ql (U) Amphetamines [Presence] in Urine by Screen method Afzoeu=[id number] 0 [facility] Comment on above: Amphetamine test inc ludes Amphetamine and Methamphetamine. Appearance of UrineOrdered B y: Ragini Carmona on 11-17-2024 Appearance (U) Urine appearance Clear [facility] Bacteria [Presence] in Urine by AutomatedOrdered By: Ragini Carmona on 11-17-2024 Bacteria Auto Ql (U) Bacteria [Presence] in Urine by Automated None Seen [facility] Barbiturates [Presence] in U rine by Screen methodOrdered By: Ragini Carmona on 11-17-2024 Barbiturates Screen Ql (U) Barbiturates [Presence] in Urine by Screen method [id number]=[id number] [facility] Benzodiazepines Screen Ql (U )Ordered By: Ragini Carmona on 11-17-2024 Benzodiazepines Ql (U) Benzodiazepines [Presence] in Urine by Screen method High Negative [facility] Benzodiazepines [Presence] i n UrineOrdered By: Chaz Frey on 11-17-2024 Benzodiazepines Ql (U) Benzodiazepines [Presence] in Urine Fevetx=105 [facility] Benzoylecgonine [Presence] i n Urine by Screen methodOrdered By: Ragini Carmona on 11-17-2024 Benzoylecgonine Screen Ql (U) Benzoylecgonine [Presence] in Urine by Screen method Negative [facility] Bilirubin Test strip Ql (U)O rdered By: Ragini Carmona on 11-17-2024 Bilirubin Ql (U) Bilirubin.total [Pre sence] in Urine by Test strip Negative [facility] CT angio neckon 11-17-2024 CT angio neck [facility] [place] [address] CT Scan Report Signed Patient: Aaron Olivarez MR#: [id number] 00 : 1960 Acct:[id number] Age/Sex: 64 / M ADM Date: 11/17/24 Loc: ER Room: Type: PRE ER Attending Dr: Copies to: Ragini Carmona DO Ordering Provider: Ragini Carmona DO Date of Service: 11/17/24 CT/CT angio head: cva ([id number]) CT/CT angio neck: cva CT angio head, [...] Dung Chakraborty M.D.11/17/2024 8:59 AM Dictation Location: [place] [address] Transcribed By: [facility] 11/17/24 0859 Dictated By: Dung Chakraborty II, MD 11/17/24 0852 Signed By: 11/17/24 0859 Normal [facility] CT head stroke alert wo cono n 11-17-2024 CT head stroke alert wo con [facility] [place] [address] CT Scan Report Signed Patient: Aaron Olivarez MR#: [id number] 00 : 1960 Acct:[id number] Age/Sex: 64 / M ADM Date: 11/17/24 [...] Dung Chakraborty M.D.11/17/2024 8:43 AM Dictation Location: [place] [address] Transcribed By: YNES 11/17/24 0843 Dictated By: Dung Chakraborty II, MD 11/17/24 0837 Signed By: 11/17/2443 Normal [facility] Cannabinoids [Mass/volume] i n Urine by Confirmatory methodOrdered By: Chaz Frey on 11-17-2024 Cannabinoids Confirm (U) [Mass/Vol] Cannabinoids [Mass/volume] in Urine by Confirmatory method Cutoff=50 [facility] Cannabinoids [Presence] in U rine by Screen methodOrdered By: Ragini Carmona on 11-17-2024 Cannabinoids Screen Ql (U) Cannabinoids [Presence] in Urine by Screen method Cutoff=50 [facility] Comment on above: These are unconfirme d results and should not be used for legal purposes. Drug Cut-Off Concentration: AMPH 1000 ng/mL BHASKAR 200 ng/mL RIKKI 200 ng/mL COCM 300 ng/mL OP 300 ng/mL PCP 25 ng/mL THC 20 ng/mL Color Auto (U)Ordered By: Natalie Carmona on 11-17-2024 Color (U) Color of Urine by Auto Yellow Fi [facility] Complete Blood Count Auto Di ffon 11-17-2024 Basophils (Bld) [#/Vol] 0.0 10*3/uL Normal 0.0-0.2 [facility] Comment on above: Result Comment: PERF ORMED BY: [place] [address] PATHOLOGIST BEAUTY DIRECTOR VÍCTOR LUCERO M.D. Performed By: #### P RL, HS TROP, CBC, CMP #### [address] Basophils/100 WBC (Bld) 0.4 % Normal . [facility] Comment on above: Performed By: #### P RL, HS TROP, CBC, CMP #### [address] Eosinophils (Bld) [#/Vol] 0.0 10*3/uL Normal 0.0-0.45 [facility] Comment on above: Performed By: #### P RL, HS TROP, CBC, CMP #### [address] Eosinophils/100 WBC (Bld) 0.1 % Normal . [facility] Comment on above: Performed By: #### P RL, HS TROP, CBC, CMP #### [address] Erythrocyte distribution width (RBC) [Ratio] 13.6 % Normal 12.0-14.8 [facility] Comment on above: Performed By: #### P RL, HS TROP, CBC, CMP #### [address] Hematocrit (Bld) [Volume fraction] 46.4 % Normal 38.8-50.0 [facility] Comment on above: Performed By: #### P RL, HS TROP, CBC, CMP #### [address] Hemoglobin (Bld) [Mass/Vol] 15.6 g/dL Normal 13.0-17.0 [facility] Comment on above: Performed By: #### P RL, HS TROP, CBC, CMP #### [address] Lymphocytes (Bld) [#/Vol] 0.4 10*3/uL Low 1.00-4.8 [facility] Comment on above: Performed By: #### P RL, HS TROP, CBC, CMP #### [address] Lymphocytes/100 WBC (Bld) 4.4 % Normal . [facility] Comment on above: Performed By: #### P RL, HS TROP, CBC, CMP #### [address] MCH (RBC) [Entitic mass] 28.8 pg Normal 27.5-35.2 [facility] Comment on above: Performed By: #### P RL, HS TROP, CBC, CMP #### [address] MCV (RBC) [Entitic vol] 85.6 fL Normal 83.5-101 [facility] Comment on above: Performed By: #### P RL, HS TROP, CBC, CMP #### [address] Mean Corpuscular HGB Conc 33.6 g/dL Normal 32.5-35.6 [facility] Comment on above: Performed By: #### P RL, HS TROP, CBC, CMP #### [address] Monocytes (Bld) [#/Vol] 0.3 10*3/uL Normal 0.0-0.8 [facility] Comment on above: Performed By: #### P RL, HS TROP, CBC, CMP #### [address] Monocytes/100 WBC (Bld) 15.39 % Normal 0.00-20.00 [facility] Comment on above: Performed By: #### P RL, HS TROP, CBC, CMP #### [place] [address] [place] Monocytes/100 WBC (Bld) 3.3 % Normal . [facility] Comment on above: Performed By: #### P RL, HS TROP, CBC, CMP #### [address] Neutrophils (Bld) [#/Vol] 9.2 10*3/uL High 1.8-7.7 [facility] Comment on above: Performed By: #### P RL, HS TROP, CBC, CMP #### [address] Neutrophils/100 WBC (Bld) 91.8 % Normal . [facility] Comment on above: Performed By: #### P RL, HS TROP, CBC, CMP #### [address] NRBC% 0.1 /100{WBC} Normal 0-0.5 [facility] Comment on above: Performed By: #### P RL, HS TROP, CBC, CMP #### [address] Platelet mean volume (Bld) [Entitic vol] 7.3 fL Normal 6.6-10.1 [facility] Comment on above: Performed By: #### P RL, HS TROP, CBC, CMP #### [place] [address] [place] Platelets (Bld) [#/Vol] 280 10*3/uL Normal 150-450 [facility] Comment on above: Performed By: #### P RL, HS TROP, CBC, CMP #### [place] [address] [place] RBC (Bld) [#/Vol] 5.42 10*6/uL Normal 3.90-5.60 [facility] Comment on above: Performed By: #### P RL, HS TROP, CBC, CMP #### [place] [address] [place] WBC (Bld) [#/Vol] 10.1 10*3/uL Normal 4.1-10.5 [facility] Comment on above: Performed By: #### P RL, HS TROP, CBC, CMP #### [address] Comprehensive Metabolic Pane wilner 11-17-2024 Albumin [Mass/Vol] 4.2 g/dL Normal 3.5-5.7 [facility] Comment on above: Performed By: #### P RL, HS TROP, CBC, CMP #### [address] Albumin/Globulin [Mass ratio] 1.7 {ratio} Normal [facility] Comment on above: Performed By: #### P RL, HS TROP, CBC, CMP #### [address] ALP [Catalytic activity/Vol] 95 U/L Normal 34-104 [facility] Comment on above: Performed By: #### P RL, HS TROP, CBC, CMP #### [address] ALT [Catalytic activity/Vol] 12 U/L Normal 7-52 [facility] Comment on above: Performed By: #### P RL, HS TROP, CBC, CMP #### [address] Anion gap [Moles/Vol] 13.0 mmol/L Normal 6.0-15.0 [facility] Comment on above: Performed By: #### P RL, HS TROP, CBC, CMP #### [address] AST [Catalytic activity/Vol] 24 U/L Normal 13-39 [facility] Comment on above: Performed By: #### P RL, HS TROP, CBC, CMP #### [address] Bilirubin [Mass/Vol] 0.6 mg/dL Normal 0.3-1.0 [facility] Comment on above: Performed By: #### P RL, HS TROP, CBC, CMP #### [facility] [address] Calcium [Mass/Vol] 9.1 mg/dL Normal 8.6-10.3 [facility] Comment on above: Performed By: #### P RL, HS TROP, CBC, CMP #### [address] Chloride [Moles/Vol] 104 mmol/L Normal 98-107 [facility] Comment on above: Performed By: #### P RL, HS TROP, CBC, CMP #### [address] CO2 [Moles/Vol] 29.2 mmol/L Normal 21.0-31.0 [facility] Comment on above: Performed By: #### P RL, HS TROP, CBC, CMP #### [address] Creatinine [Mass/Vol] 1.27 mg/dL Normal 0.70-1.30 [facility] Comment on above: Performed By: #### P RL, HS TROP, CBC, CMP #### [place] [address] [place] GFR/1.73 sq M.predicted MDRD (S/P/Bld) [Vol rate/Area] mL/min/{1.73_m2} Normal [facility] Comment on above: Performed By: #### P RL, HS TROP, CBC, CMP #### [place] [address] [place] Globulin (S) [Mass/Vol] 2.5 g/dL Normal [facility] Comment on above: Performed By: #### P RL, HS TROP, CBC, CMP #### [place] [address] [place] Glucose [Mass/Vol] 163 mg/dL High 70-100 [facility] Comment on above: Result Comment: [place] Glucose Reference Range is dependent on time and content of last meal. Glucose of more than 200 mg/dL in a nonstressed, ambulatory subject supports the diagnosis of Diabetes Mellitus. ADA recommended reference range Performed By: #### P RL, HS TROP, CBC, CMP #### [facility] [address] Potassium [Moles/Vol] 4.2 mmol/L Normal 3.5-5.1 [facility] Comment on above: Performed By: #### P RL, HS TROP, CBC, CMP #### [facility] [address] Protein [Mass/Vol] 6.7 g/dL Normal 6.4-8.9 [facility] Comment on above: Performed By: #### P RL, HS TROP, CBC, CMP #### [facility] [address] [place] [address] [place] Sodium [Moles/Vol] 142 mmol/L Normal 136-145 [facility] Comment on above: Performed By: #### P RL, HS TROP, CBC, CMP #### [address] Urea nitrogen [Mass/Vol] 16 mg/dL Normal 7-25 [facility] Comment on above: Performed By: #### P RL, HS TROP, CBC, CMP #### [place] [address] [place] Creatine Kinaseon 11-17-2024 CK [Catalytic activity/Vol] 134 U/L Normal 30-223 [facility] Comment on above: Performed By: #### P RL, HS TROP, CBC, CMP #### [place] [address] [place] Creatine kinase [Enzymatic a ctivity/volume] in Serum or PlasmaOrdered By: Ragini Carmona on 11-17-2024 CK [Catalytic activity/Vol] Creatine kinase [Enzymatic activity/volume] in Serum or Plasma 30-223 [facility] Dipstick and Microscopicon 0 11-17-2024 Appearance (U) Clear Normal Clear [facility] Comment on above: Order Comment: Name Collection Type:: Clean-Voided Midstream Performed By: #### U RDS, ADDONUAPLUS #### [address] Bacteria,Urine None Seen Normal None Seen [facility] Comment on above: Order Comment: Name Collection Type:: Clean-Voided Midstream Performed By: #### U RDS, ADDONUAPLUS #### [facility] [address] [place] [address] [place] Bilirubin,Urine Negative Normal Negative [facility] Comment on above: Order Comment: Name Collection Type:: Clean-Voided Midstream Performed By: #### U RDS, ADDONUAPLUS #### [facility] [address] [place] [address] [place] Color (U) Yellow Normal Yellow [facility] Comment on above: Order Comment: Name Collection Type:: Clean-Voided Midstream Performed By: #### U RDS, ADDONUAPLUS #### [address] Glucose Ql (U) 70 mg/dL High Normal [facility] Comment on above: Order Comment: Name Collection Type:: Clean-Voided Midstream Performed By: #### U RDS, ADDONUAPLUS #### [place] [address] [place] Hyaline Casts,Urine None Normal 0-8 [facility] Comment on above: Order Comment: Name Collection Type:: Clean-Voided Midstream Performed By: #### U RDS, ADDONUAPLUS #### [address] Ketones Ql (U) Negative Normal Negative [facility] Comment on above: Order Comment: Name Collection Type:: Clean-Voided Midstream Performed By: #### U RDS, ADDONUAPLUS #### [facility] [address] [place] [address] [place] Leukocyte esterase Test strip Ql (U) Negative Normal Negative [facility] Comment on above: Order Comment: Name Collection Type:: Clean-Voided Midstream Performed By: #### U RDS, ADDONUAPLUS #### [place] [address] [place] Mucus,Urine Rare Normal [facility] Comment on above: Order Comment: Name Collection Type:: Clean-Voided Midstream Result Comment: PERF ORMED BY: [place] [address] PATHOLOGIST BEAUTY DIRECTOR VÍCTOR LUCERO M.D. Performed By: #### U RDS, ADDONUAPLUS #### [address] Nitrite,Urine Negative Normal Negative [facility] Comment on above: Order Comment: Name Collection Type:: Clean-Voided Midstream Performed By: #### U RDS, ADDONUAPLUS #### [address] Occult Blood,Urine Negative Normal Negative [facility] Comment on above: Order Comment: Name Collection Type:: Clean-Voided Midstream Performed By: #### U RDS, ADDONUAPLUS #### [address] pH (U) 6.5 [pH] Normal 5.0-9.0 [facility] Comment on above: Order Comment: Name Collection Type:: Clean-Voided Midstream Performed By: #### U RDS, ADDONUAPLUS #### [address] Protein (U) [Mass/Vol] 70 mg/dL High Negative [facility] Comment on above: Order Comment: Name Collection Type:: Clean-Voided Midstream Performed By: #### U RDS, ADDONUAPLUS #### [place] [address] [place] RBC,Urine 3 [HPF] Normal 0-4 [facility] Comment on above: Order Comment: Name Collection Type:: Clean-Voided Midstream Performed By: #### U RDS, ADDONUAPLUS #### [place] [address] [place] Specificy [place],Urine >1.050 High 1.001-1.03 0 [facility] Comment on above: Order Comment: Name Collection Type:: Clean-Voided Midstream Result Comment: Rech ecked by refractometer Performed By: #### U RDS, ADDONUAPLUS #### [place] [address] [place] Squamous Epithelial Cell,Urine 1 [HPF] Normal 0-2 [facility] Comment on above: Order Comment: Name Collection Type:: Clean-Voided Midstream Performed By: #### U RDS, ADDONUAPLUS #### [address] Urobilinogen,Urine Normal Normal Normal [facility] Comment on above: Order Comment: Name Collection Type:: Clean-Voided Midstream Performed By: #### U RDS, ADDONUAPLUS #### [address] WBC,Urine 1 [HPF] Normal 0-4 [facility] Comment on above: Order Comment: Name Collection Type:: Clean-Voided Midstream Performed By: #### U RDS, ADDONUAPLUS #### [address] Drug Screen,Urineon 11-17-19 25 Amphetamine Screen,Urine Positive High Negative [facility] Comment on above: Performed By: #### U RDS, ADDONUAPLUS #### [address] Barbiturate Screen,Urine Negative Normal Negative [facility] Comment on above: Performed By: #### U RDS, ADDONUAPLUS #### [place] [address] [place] Benzodiazepines Screen,Urine Positive High Negative [facility] Comment on above: Performed By: #### U RDS, ADDONUAPLUS #### [address] Cannabinoid Screen,Urine Positive High Negative [facility] Comment on above: Result Comment: Thes e are unconfirmed results and should not be used for legal purposes. Drug Cut-Off Concentration: AMPH 1000 ng/mL HBASKAR 200 ng/mL RIKKI 200 ng/mL COCM 300 ng/mL OP 300 ng/mL PCP 25 ng/mL THC 20 ng/mL PERFORMED BY: [place] [address] PATHOLOGIST BEAUTY DIRECTOR VÍCTOR LUCERO M.D. Performed By: #### U RDS, ADDONUAPLUS #### [facility] [address] [place] [address] Cocaine Screen,Urine Negative Normal Negative [facility] Comment on above: Performed By: #### U RDS, ADDONUAPLUS #### [facility] [address] Opiate Screen,Urine Negative Normal Negative [facility] Comment on above: Performed By: #### U RDS, ADDONUAPLUS #### [facility] [address] [place] [address] Phencyclidine Screen,Urine Negative Normal Negative [facility] Comment on above: Performed By: #### U RDS, ADDONUAPLUS #### [facility] [address] [place] [address] ECG 12 lead ECGon 11-17-2024 ECG 12 lead ECG [facility] [place] [address] [place] [address] Electrocardiograph Report Signed Patient: Aaron Olivarez MR#: [id number] 00 : 1960 Acct:[id number] Age/Sex: 64 / M ADM Date: 11/17/24 Loc: Room: [address] [place] [address] Type: ADM INOo Attending Dr: Chaz Frey [...] DO Transcribed By: MUS Signed By Ragini Carmona, DO 1445 Normal [facility] Epithelial cells.squamous [# /area] in Urine sediment by Automated countOrdered By: Ragini Carmona on 11-17-2024 Epithelial cells.squamous Auto (Urine sed) [#/Area] Epithelial cells.squamous [#/area] in Urine sediment by Automated count 0-2 [facility] Erythrocyte Sedimentation Ra irene 11-17-2024 ESR (Bld) [Velocity] 2 mm/h Normal 0-19 [facility] Comment on above: Result Comment: PERF ORMED BY: [place] [address] PATHOLOGIST BEAUTY DIRECTOR VÍCTOR LUCERO M.D. Performed By: #### G LULS #### Point of Care testing , Erythrocyte sedimentation ra te by Photometric methodOrdered By: Chaz Frey on 11-17-2024 ESR Photometric method (Bld) [Velocity] Erythrocyte sedimentation rate by Photometric method 0-19 [facility] Erythrocytes [#/area] in Uri ne sediment by Automated countOrdered By: Ragini Carmona on 11-17-2024 RBC Auto (Urine sed) [#/Area] Erythrocytes [#/area] in Urine sediment by Automated count 0- [facility] Ethanol [Mass/volume] in Ser um or PlasmaOrdered By: Ragini Carmona on 11-17-2024 Ethanol [Mass/Vol] Ethanol [Mass/volume ] in Serum or Plasma [facility] Comment on above: Test not performed Ethyl Alcohol Profileon Ethanol [Mass/Vol] mg/dL Normal [facility] Comment on above: Performed By: #### P RL, HS TROP, CBC, CMP #### [address] Percent Ethanol Not performed Normal [facility] Comment on above: Result Comment: PERF ORMED BY: [place] [address] PATHOLOGIST BEAUTY DIRECTOR VÍCTOR LUCERO M.D. Performed By: #### P RL, HS TROP, CBC, CMP #### [facility] [address] [place] [id number] [place] Glucose Glucometer (BldC) [M ass/Vol]Ordered By: Ragini Carmona on 11-17-2024 Glucose [Mass/Vol] Capillary blood gluc ose measurement by glucometer (mass/volume) [facility] Comment on above: Random Glucose Refer ence Range is dependent on time and content of last meal. Glucose of more than 200 mg/dL in a nonstressed, ambulatory subject supports the diagnosis of Diabetes Mellitus. Glucose Poct Glucometerson 0 11-17-2024 Glucose [Mass/Vol] 175 mg/dL Normal [facility] Comment on above: Result Comment: [place] Glucose Reference Range is dependent on time and content of last meal. Glucose of more than 200 mg/dL in a nonstressed, ambulatory subject supports the diagnosis of Diabetes Mellitus. PERFORMED BY: [place] [address] PATHOLOGIST BEAUTY DIRECTOR VÍCTOR LUCERO M.D. Performed By: #### G LULS #### Point of Care testing , Glucose [Mass/volume] in Uri ne by Test stripOrdered By: Ragini Carmona on 11-17-2024 Glucose Test strip (U) [Mass/Vol] Glucose [Mass/volume] in Urine by Test strip High Normal [facility] Hemoglobin Test strip Ql (U) Ordered By: Ragini Carmona on 11-17-2024 Hemoglobin Ql (U) Hemoglobin [Presence ] in Urine by Test strip Negative [facility] Hyaline casts [#/area] in Ur ine sediment by Automated countOrdered By: Ragini Carmona on 11-17-2024 Hyaline casts Auto (Urine sed) [#/Area] Hyaline casts [#/area] in Urine sediment by Automated count 0-8 [facility] INR in Platelet poor plasma by Coagulation assayOrdered By: Ragini Carmona on 11-17-2024 INR Coag (PPP) [Relative time] INR in Platelet poor plasma by Coagulation assay [facility] Comment on above: INR Therapeutic [...] i n Urine by Test strip Negative [facility] Leukocyte esterase [Presence ] in Urine by Test stripOrdered By: Ragini Carmona on 11-17-2024 Leukocyte esterase Test strip Ql (U) Leukocyte esterase [Presence] in Urine by Test strip Negative [facility] Leukocytes [#/area] in Urine sediment by Automated countOrdered By: Ragini Carmona on 11-17-2024 WBC Auto (Urine sed) [#/Area] Leukocytes [#/area] in Urine sediment by Automated count 0-4 [facility] Magnesiumon 11-17-2024 Magnesium [Mass/Vol] 1.9 mg/dL Normal 1.9-2.7 [facility] Comment on above: Order Comment: Comme nt add on Result Comment: PERF ORMED BY: [facility] [address] [place] [address] PATHOLOGIST BEAUTY DIRECTOR VÍCTOR LUCERO M.D. Performed By: #### G LULS #### Point of Care testing , Magnesium [Mass/volume] in S andrei or PlasmaOrdered By: Chaz Frey on 11-17-2024 Magnesium [Mass/Vol] Magnesium [Mass/vol ume] in Serum or Plasma 1.9-2.7 [facility] Methamphetamine [Presence] i n UrineOrdered By: Chaz Frey on 11-17-2024 Methamphetamine Ql (U) Methamphetamine [Presence] in Urine Abnormal . [facility] Methamphetamine cutoff [Mass /volume] in Urine for Confirmatory methodOrdered By: Chaz Frey on 11-17-2024 Methamphetamine cutoff Confirm (U) [Mass/Vol] Methamphetamine cutoff [Mass/volume] in Urine for Confirmatory method [id number] [facility] Monocyte distribution width [Entitic volume] in Blood by AutomatedOrdered By: Ragini Carmona on 11-17-2024 Monocyte distribution width Auto (Bld) [Entitic vol] Monocyte distribution width [Entitic volume] in Blood by Automated 0.00-20.00 [facility] Mucus [Presence] in Urine by AutomatedOrdered By: Ragini Carmona on 11-17-2024 Mucus Auto Ql (U) Mucus [Presence] in Urine by Automated [facility] Nitrite Test strip Ql (U)Ord ered By: Ragini Carmona on 11-17-2024 Nitrite Ql (U) Nitrite [Presence] i n Urine by Test strip Negative [facility] Opiates [Presence] in UrineO rdered By: Chaz Frey on 11-17-2024 Opiates Ql (U) Opiates [Presence] in Urine Cuto al=021 [facility] Comment on above: Opiate test includes Codeine and Morphine only. Opiates [Presence] in Urine by Screen methodOrdered By: Ragini Carmona on 11-17-2024 Opiates Screen Ql (U) Opiates [Presence] in Urine by Screen method Negative [facility] Partial Thromboplastin Timeo n 11-17-2024 aPTT Coag (Bld) [Time] 22.3 s Low 25.1-36.5 [facility] Comment on above: Result Comment: A he matocrit value greater than 55% may lead to inaccurate results in coagulation testing. Patients having hematocrit values >55% require a special collection tube for coagulation studies. Please contact the laboratory at [phone] for redraw instructions. PERFORMED BY: [place] [id number] PATHOLOGIST BEAUTY DIRECTOR VÍCTOR LUCERO M.D. Performed By: #### P RL, HS TROP, CBC, CMP #### [place] [id number] [place] Phencyclidine Screen Ql (U)O rdered By: Ragini Carmona on 11-17-2024 Phencyclidine Ql (U) Phencyclidine [Pres ence] in Urine by Screen method Negative [facility] Phencyclidine [Presence] in UrineOrdered By: Chaz Frey on 11-17-2024 Phencyclidine Ql (U) Phencyclidine [Pres ence] in Urine Cutoff=25 [facility] Comment on above: Performed at: [facility] [id number] [place], [place] [id number] Director: Adenike Panchal PhD, Phone: [phone] Prolactinon 11-17-2024 Prolactin 14.22 ng/mL High 2.64-13.13 [facility] Comment on above: Result Comment: PERF ORMED BY: [place] [address] PATHOLOGIST BEAUTY DIRECTOR VÍCTOR LUCERO M.D. Performed By: #### P RL, HS TROP, CBC, CMP #### [address] Protein Test strip (U) [Mass /Vol]Ordered By: Ragini Carmona on 11-17-2024 Protein (U) [Mass/Vol] Protein [Mass/volume] in Urine by Test strip High Negative [facility] Prothrombin Time INRon 11-17 INR Coag (PPP) [Relative time] 1.0 {INR} Normal [facility] Comment on above: Result Comment: [...] valves: 3 - 4.5 Performed By: #### P RL, HS TROP, CBC, CMP #### [address] PT Coag (PPP) [Time] 11.9 s Normal 9.0-12.9 [facility] Comment on above: Result Comment: A he matocrit value greater than 55% may lead to inaccurate results in coagulation testing. Patients having hematocrit values >55% require a special collection tube for coagulation studies. Please contact the laboratory at [phone] for redraw instructions. Performed By: #### P RL, HS TROP, CBC, CMP #### [facility] [address] [place] [address] Prothrombin time (PT)Ordered By: Raigni Carmona on 11-17-2024 PT Coag (PPP) [Time] Prothrombin time (PT) 9.0- 12.9 [facility] Comment on above: A hematocrit value g reater than 55% may lead to inaccurate results in coagulation testing. Patients having hematocrit values >55% require a special collection tube for coagulation studies. Please contact the laboratory at [phone] for redraw instructions. Specific gravity of Urine by RefractometryOrdered By: Ragini Carmona on 11-17-2024 Specific gravity Refractometry (U) [Rel density] Specific gravity of Urine by Refractometry High 1.001-1.03 0 [facility] Comment on above: Rechecked by refract ometer Troponin I High Sensitivityo n 11-17-2024 Troponin I High Sensitivity 36.7 pg/mL High 0.0-20.0 [facility] Comment on above: Result Comment: PERF ORMED BY: [place] [address] PATHOLOGIST BEAUTY DIRECTOR VÍCTOR LUCERO M.D. Performed By: #### G LULS #### Point of Care testing , Troponin I High Sensitivity 21.1 pg/mL High 0.0-20.0 [facility] Comment on above: Result Comment: PERF ORMED BY: [place] [address] PATHOLOGIST BEAUTY DIRECTOR VÍCTOR LUCERO M.D. Performed By: #### P RL, HS TROP, CBC, CMP #### [facility] [address] [place] [address] Urine Drug Screen w/Confirmo n 11-17-2024 Amphetamines GC/MS Confirm, Ur 527 ng/mL Normal Gdcmzq=004 [facility] Comment on above: Performed By: #### G LULS #### Point of Care testing , Amphetamines, Ur See Final Results Normal Cutoff =100 0 [facility] Comment on above: Result Comment: Amph etamine test includes Amphetamine and Methamphetamine. Performed By: #### G LULS #### Point of Care testing , Amphetamines, Ur Positive Critically abnormal . [facility] Comment on above: Result Comment: Amph etamine test includes Amphetamine and Methamphetamine. Performed By: #### G LULS #### Point of Care testing , Barbiturate, Ur Negative Normal Cgunkk=629 [facility] Comment on above: Performed By: #### G LULS #### Point of Care testing , Benzodiazepines, Ur See Final Results Normal Cutoff=30 0 [facility] Comment on above: Performed By: #### G LULS #### Point of Care testing , Benzodiazepines, Urine Negative Normal [place]=008 [facility] Comment on above: Performed By: #### G LULS #### Point of Care testing , Cannabinoid, Ur See Final Results Normal Cutoff=50 [facility] Comment on above: Performed By: #### G LULS #### Point of Care testing , Cannabinoid, Urine Negative Normal Cutoff=50 [facility] Comment on above: Result Comment: PERF ORMED BY: [address] [place] [address] PATHOLOGIST BEAUTY DIRECTOR VÍCTOR LUCERO M.D. Performed By: #### G LULS #### Point of Care testing , Cocaine (Metab), Ur Negative Normal Bunhyq=725 [facility] Comment on above: Performed By: #### G LULS #### Point of Care testing , Methamphetamine Positive Critically abnormal . [facility] Comment on above: Performed By: #### G LULS #### Point of Care testing , Methamphetamines GC/MS, Ur >3000 Normal Dywiuj=671 [facility] Comment on above: Performed By: #### G LULS #### Point of Care testing , Opaites, Ur Negative Normal Stvdyv=230 [facility] Comment on above: Result Comment: Opia te test includes Codeine and Morphine only. Performed By: #### G LULS #### Point of Care testing , Phencyclidine, Ur Negative Normal Cutoff=25 [facility] Comment on above: Result Comment: Perf ormed at: [facility] [address] [place], [place] [id number] Generation Mechanic Helper: Adenike Panchal PhD, Phone: [phone] Performed By: #### G LULS #### Point of Care testing , Urine cocaine metabolite det ectionOrdered By: Chaz Frey on 11-17-2024 Benzoylecgonine Ql (U) Urine cocaine metabolite detection Ybozbx=501 [facility] Urobilinogen Test strip (U) [Mass/Vol]Ordered By: Ragini Carmona on 11-17-2024 Urobilinogen (U) [Mass/Vol] Urobilinogen [Mass/volume] in Urine by Test strip Normal [facility] Vitamin B12on 11-17-2024 Cobalamin (Vitamin B12) [Mass/Vol] 313 pg/mL Normal 180-914 [facility] Comment on above: Result Comment: PERF ORMED BY: [place] [address] PATHOLOGIST BEAUTY DIRECTOR VÍCTOR LUCERO M.D. Performed By: #### G LULS #### Point of Care testing , Vitamin B12 ser/plasOrdered By: Chaz Frey on 11-17-2024 Cobalamin (Vitamin B12) [Mass/Vol] Vitamin B12 ser/plas 180-914 [facility] X-ray reportOrdered By: Dung Chakraborty on 11-17-2024 Study report [facility] [place] [id number] XRay Report Signed Patient: Aaron Olivarez MR#: [id number] : 1960 Acct:[id number] Age/Sex: 64 / M ADM Date: 5 Loc: Room: [address] [place] [address] Type: ADM INOo Attending Dr: Chaz Frey MD Copies to: Chaz Frey MD~ Ordering Provider: Chaz Frey MD Date [...] Dung Chakraborty M.D.11/17/2024 1:26 PM Dictation Location: RADIO-PC-17 Transcribed By: YNES 11/17/241325 Dictated By: Dung Chakraborty II, MD 11/17/241325 Signed By: 11/17/24 132 [facility] Work Phone: XR chest 1V portableon 11-17 XR chest 1V portable [facility] [place] [address] XRay Report Signed Patient: Aaron Olivarez MR#: [id number] 00 : 1960 Acct:[id number] Age/Sex: 64 / M ADM Date: 11/17/24 Loc: Room: [address] [place] [address] Type: ADM INOo Attending Dr: Chaz Frey [...] Dung Chakraborty M.D.11/17/2024 1:26 PM Dictation Location: RADIO-PC-17 Transcribed By: YNES 11/17/241325 Dictated By: Dung Chakraborty II, MD 11/17/241325 Signed By: 11/17/241325 Normal [facility] aPTT in Platelet poor plasma by Coagulation assayOrdered By: Ragini Carmona on 11-17-2024 aPTT Coag (PPP) [Time] Activated partial thromboplastin time (aPTT) in platelet poor plasma by coagulation a Low 25.1-36.5 [facility] Comment on above: A hematocrit value g reater than 55% may lead to inaccurate results in coagulation testing. Patients having hematocrit values >55% require a special collection tube for coagulation studies. Please contact the laboratory at [phone] for redraw instructions. pH Test strip (U)Ordered By: Ragini Carmona on 11-17-2024 pH (U) pH of Urine by Test strip 5.0-9.0 [facility] CBC with Diffon 07-15-2024 Abs. Basophil 0.04 k/uL Normal 0.00-0.20 [facility] Comment on above: Performed By: #### C DP, CMPX, MG #### [place] [address] Generation Mechanic Helper: Dario Almanza MD Abs.Imm.Granulocyte <0.03 Normal 0.00-0.30 [facility] Comment on above: Performed By: #### C DP, CMPX, MG #### [place] [address] Generation Mechanic Helper: Dario Almanza MD Abs.Neutrophil (Seg) 3.52 k/uL Normal 1.50-8.10 [facility] Comment on above: Performed By: #### C DP, CMPX, MG #### [facility] [address] [place] [address] Generation Mechanic Helper: Dario Almanza MD Basophils/100 WBC (Bld) 1 % Normal 0-2 [facility] Comment on above: Performed By: #### C DP, CMPX, MG #### [facility] [address] [place] [address] Generation Mechanic Helper: Dario Almanza MD Eosinophils (Bld) [#/Vol] 0.03 10*3/uL Normal 0.00-0.44 [facility] Comment on above: Performed By: #### C DP, CMPX, MG #### [place] [address] Generation Mechanic Helper: Dario Almanza MD Eosinophils/100 WBC (Bld) 1 % Normal 1-4 [facility] Comment on above: Performed By: #### C DP, CMPX, MG #### [place] [address] Generation Mechanic Helper: Dario Almanza MD Erythrocyte distribution width (RBC) [Ratio] 13.1 % Normal 11.8-14.4 [facility] Comment on above: Performed By: #### C DP, CMPX, MG #### [place] [address] Generation Mechanic Helper: Dario Almanza MD Hematocrit (Bld) [Volume fraction] 42.4 % Normal 40.7-50.3 [facility] Comment on above: Performed By: #### C DP, CMPX, MG #### [place] [address] Generation Mechanic Helper: Dario Almanza MD Hemoglobin (Bld) [Mass/Vol] 13.7 g/dL Normal 13.0-17.0 [facility] Comment on above: Performed By: #### C DP, CMPX, MG #### [place] [address] Generation Mechanic Helper: Dario Almanza MD Immature granulocytes/100 WBC (Bld) 0 % Normal 0 [facility] Comment on above: Performed By: #### C DP, CMPX, MG #### [place] [address] Generation Mechanic Helper: Dario Almanza MD Lymphocytes (Bld) [#/Vol] 1.19 10*3/uL Normal 1.10-3.70 [facility] Comment on above: Performed By: #### C DP, CMPX, MG #### [address] [address] Generation Mechanic Helper: Dario Almanza MD Lymphocytes/100 WBC (Bld) 22 % Low 24-43 [facility] Comment on above: Performed By: #### C DP, CMPX, MG #### [place] [address] Generation Mechanic Helper: Dario Almanza MD MCH (RBC) [Entitic mass] 29.6 pg Normal 25.2-33.5 [facility] Comment on above: Performed By: #### C DP, CMPX, MG #### [place] [address] Generation Mechanic Helper: Dario Almanza MD MCHC (RBC) [Mass/Vol] 32.3 g/dL Normal 28.4-34.8 [facility] Comment on above: Performed By: #### C DP, CMPX, MG #### [place] [address] Generation Mechanic Helper: Dario Almanza MD MCV (RBC) [Entitic vol] 91.6 fL Normal 82.6-102.9 [facility] Comment on above: Performed By: #### C DP, CMPX, MG #### [place] [address] Generation Mechanic Helper: Daroi Almanza MD Monocytes (Bld) [#/Vol] 0.61 10*3/uL Normal 0.10-1.20 [facility] Comment on above: Performed By: #### C DP, CMPX, MG #### [place] [address] Generation Mechanic Helper: Dario Almanza MD Monocytes/100 WBC (Bld) 11 % Normal 3-12 [facility] Comment on above: Performed By: #### C DP, CMPX, MG #### [facility] [address] [place] [id number] Generation Mechanic Helper: Dario Almanza MD Neutrophil (Seg) 65 % Normal 36-65 [facility] Comment on above: Performed By: #### C DP, CMPX, MG #### [address] [address] Generation Mechanic Helper: Dario Almanza MD NRBC Automated 0.0 per 100 WBC Normal 0.0 [facility] Comment on above: Performed By: #### C DP, CMPX, MG #### [address] [address] Generation Mechanic Helper: Dario Almanza MD Platelet mean volume (Bld) [Entitic vol] 9.2 fL Normal 8.1-13.5 [facility] Comment on above: Performed By: #### C DP, CMPX, MG #### [address] [address] Generation Mechanic Helper: Dario Almanza MD Platelets (Bld) [#/Vol] 227 10*3/uL Normal 138-453 [facility] Comment on above: Performed By: #### C DP, CMPX, MG #### [address] [address] Generation Mechanic Helper: Dario Almanza MD RBC (Bld) [#/Vol] 4.63 10*6/uL Normal 4.21-5.77 [facility] Comment on above: Performed By: #### C DP, CMPX, MG #### [address] [address] Generation Mechanic Helper: Dario Almanza MD WBC (Bld) [#/Vol] 5.4 10*3/uL Normal 3.5-11.3 [facility] Comment on above: Performed By: #### C DP, CMPX, MG #### [address] [place] [address] Generation Mechanic Helper: Dario Almanza MD Comp Metabolic Pr/rfx MGon 0 07-15-2024 Albumin [Mass/Vol] 3.8 g/dL Normal 3.5-5.2 [facility] Comment on above: Performed By: #### C DP, CMPX, MG #### [facility] [address] [place] [phone] Generation Mechanic Helper: Dario Almanza MD Albumin/Glob Ratio 2.0 Normal 1.0-2.5 [facility] Comment on above: Performed By: #### C DP, CMPX, MG #### [facility] [address] [place] [id number] Generation Mechanic Helper: Dario Almanza MD Alkaline Phos 104 U/L Normal 40-129 [facility] Comment on above: Performed By: #### C DP, CMPX, MG #### [facility] [address] [place] [phone] Generation Mechanic Helper: Dario Almanza MD ALT [Catalytic activity/Vol] 7 U/L Low 10-50 [facility] Comment on above: Performed By: #### C DP, CMPX, MG #### [facility] [address] [place] [id number] Generation Mechanic Helper: Dario Almanza MD Anion gap [Moles/Vol] 7 mmol/L Low 9-16 [facility] Comment on above: Performed By: #### C DP, CMPX, MG #### [facility] [address] [place] [id number] Generation Mechanic Helper: Dario Almanza MD AST [Catalytic activity/Vol] 20 U/L Normal 10-50 [facility] Comment on above: Performed By: #### C DP, CMPX, MG #### [facility] [address] [place] [phone] Generation Mechanic Helper: Dario Almanza MD Bilirubin [Mass/Vol] 0.6 mg/dL Normal 0.00-1.20 [facility] Comment on above: Performed By: #### C DP, CMPX, MG #### [facility] [address] [place] [id number] Generation Mechanic Helper: Dario Almanza MD Calcium [Mass/Vol] 9.3 mg/dL Normal 8.6-10.4 [facility] Comment on above: Performed By: #### C DP, CMPX, MG #### [facility] [address] [place] [phone] Generation Mechanic Helper: Dario Almanza MD Chloride [Moles/Vol] 103 mmol/L Normal 98-107 [facility] Comment on above: Performed By: #### C DP, CMPX, MG #### [address] [address] Generation Mechanic Helper: Dario Almanza MD CO2 [Moles/Vol] 28 mmol/L Normal 20-31 [facility] Comment on above: Performed By: #### C DP, CMPX, MG #### [facility] [address] [place] [phone] Generation Mechanic Helper: Dario Almanza MD Creatinine [Mass/Vol] 0.9 mg/dL Normal 0.70-1.20 [facility] Comment on above: Performed By: #### C DP, CMPX, MG #### [facility] [address] [place] [phone] Generation Mechanic Helper: Dario Almanza MD GFR/1.73 sq M.predicted among non-blacks MDRD (S/P/Bld) [Vol rate/Area] mL/min/{1.73_m2} Normal >60 [facility] [facility] Comment on above: Result Comment: These results [...] By: #### C DP, CMPX, MG #### [facility] [address] [place] [phone] [employer]: Dario Almanza MD Glucose [Mass/Vol] 95 mg/dL Normal 74-99 [facility] Comment on above: Performed By: #### C DP, CMPX, MG #### [facility] [address] [place] [phone] [employer]: Dario Almanza MD Potassium [Moles/Vol] 3.4 mmol/L Low 3.7-5.3 [facility] Comment on above: Performed By: #### C DP, CMPX, MG #### [facility] [address] [place] [phone] [employer]: Dario Almanza MD Protein [Mass/Vol] 5.8 g/dL Low 6.6-8.7 [facility] Comment on above: Performed By: #### C DP, CMPX, MG #### [facility] [address] [place] [phone] [employer]: Dario Almanza MD Sodium [Moles/Vol] 138 mmol/L Normal 136-145 [facility] Comment on above: Performed By: #### C DP, CMPX, MG #### [facility] [address] [place] [phone] [employer]: Dario Almanza MD Urea nitrogen [Mass/Vol] 15 mg/dL Normal 8-23 [facility] Comment on above: Performed By: #### C DP, CMPX, MG #### [facility] [address] [place] [phone] [employer]: Dario Almanza MD Magnesiumon 07-15-2024 Magnesium [Mass/Vol] 2.0 mg/dL Normal 1.6-2.4 [facility] Comment on above: Performed By: #### C DP, CMPX, MG #### [facility] [place] [address] [employer]: Dario Almanza MD BUN, POCon 07-14-2024 Urea nitrogen [Mass/Vol] 18 mg/dL Normal 8-[address] [facility] [address] BRAIN PERFUSIONon 024 CT BRAIN PERFUSION [...] Edgar Montilla MD 07/14/24 Final result Normal [facility] CTA HEAD NECK W CONTRASTon 0 07-14-2024 [...] Edgar Montilla MD 07/14/24 Final result Normal [facility] Calcium, Ionic (POC)on 07-14 Calcium [Moles/Vol] 1.11 mmol/L Low 1.15-1.33 [facility] Creatinine w/GFR, POCon Creatinine [Mass/Vol] 1.0 mg/dL Normal 0.51-1.19 [facility] GFR/1.73 sq M.predicted among non-blacks MDRD (S/P/Bld) [Vol rate/Area] 84 mL/min/{1.73_m2} Normal >60 [facility] Comment on above: Result Comment: These results [...] Abuse, Uron 2023 Amphetamine(s),Ur Positive Abnormal NEG [facility] Comment on above: Result Comment: Cuto ff: 1000 ng/mL Performed By: #### U AMIC, MARIA D #### [facility] [place] [address] [employer]: Dario Almanza MD Benzodiazepine(s) Positive Abnormal NEG [facility] Comment on above: Result Comment: Cuto ff: 200 ng/ml Performed By: #### U AMIC, MARIA D #### [facility] [address] [place] [phone] [employer]: Dario Almanza MD Cannabinoid(s),Ur Positive Abnormal NEG [facility] Comment on above: Result Comment: Cuto ff: 50 ng/ml Performed By: #### U AMIC, MARIA D #### [address] [address] [employer]: Dario Almanza MD Interpretive Info Assay provides rapid clinical screening only. Presumptive positive results for Normal [facility] Comment on above: Result Comment: lega l purposes should be confirmed by another method. To request confirmation, please call the lab within 7 days of sample submission. Performed By: #### U AMIC, MARIA D #### [facility] [address] [place] [phone] [employer]: Dario Almanza MD Barbiturate(s),Ur Negative Normal NEG [facility] Comment on above: Result Comment: Cuto ff: 200 ng/ml Performed By: #### U AMIC, MARIA D #### [address] [address] [employer]per: Dario Almanza MD Cocaine Metabolite Negative Normal NEG [facility] Comment on above: Result Comment: Cuto ff: 300 ng/ml Performed By: #### U AMIC, MARIA D #### [facility] [address] [place] [phone] [employer]: Dario Almanza MD Fentanyl, Urine Negative Normal NEG [facility] Comment on above: Result Comment: Cuto ff: 5 ng/ml Performed By: #### U AMIC, MARIA D #### [facility] [address] [place] [address] [employer]: Dario Almanza MD Methadone Ql (U) Negative Normal NEG [facility] Comment on above: Result Comment: Cuto ff: 300 ng/ml Performed By: #### U AMIC, MARIA D #### [address] [place] [address] [employer]per: Dario Almanza MD Opiate(s), Ur Negative Normal NEG [facility] Comment on above: Result Comment: Cuto ff: 300 ng/ml Performed By: #### U AMIC, MARIA D #### [facility] [address] [place] [address] Generation [employer]per: Dario Almanza MD Oxycodone, Urine Negative Normal NEG [facility] Comment on above: Result Comment: Cuto ff: 100 ng/ml Performed By: #### U AMIC, MARIA D #### [address] [place] [address] Generation [employer]per: Dario Almanza MD Phencyclidine, Ur Negative Normal NEG [facility] Comment on above: Result Comment: Cuto ff: 25 ng/ml Performed By: #### U AMIC, MARIA D #### [address] [place] [address] [employer]: Dario Almanza MD Electrolyteson 07-14-2024 Anion gap [Moles/Vol] 9 mmol/L Normal 7-16 [facility] Chloride [Moles/Vol] 101 mmol/L Normal 98-107 [facility] CO2 [Moles/Vol] 32 mmol/L High 22-30 [facility] Potassium [Moles/Vol] 4.0 mmol/L Normal 3.5-4.5 [facility] Sodium [Moles/Vol] 141 mmol/L Normal 138-146 [facility] Glucose (POC)on 07-14-2024 Glucose [Mass/Vol] 172 mg/dL High 74-100 [facility] Hgb/Hct, POCon 07-14-2024 Hematocrit (Bld) [Volume fraction] 43 % Normal 41-53 [facility] Hemoglobin (Bld) [Mass/Vol] 14.8 g/dL Normal 13.5-17.5 [facility] Lactic Acidon 07-14-2024 Lactic Acid,Whole Bl 1.7 mmol/L Normal 0.7-2.1 [facility] Comment on above: Performed By: #### E DTOX, LACTIC #### [facility] [address] [place] [address] [employer]per: Dario Almanza MD Lactic Acid (POC)on 07-14-20 24 Lactate [Moles/Vol] 2.8 mmol/L High 0.56-1.39 [facility] MRI BRAIN W WO CONTRASTon MRI BRAIN [...] collection present. The proximal portions of the sycuan of Lopez demonstrate normal flow voids. ORBITS: [...] Edgar Montilla MD 07/14/24 Final result Normal [facility] Stroke Panelon 07-14-2024 Abs. Basophil 0.06 k/uL Normal 0.00-0.20 [facility] Comment on above: Performed By: #### S TITUSKE #### [place] [address] [employer]: Dario Almanza MD Abs.Imm.Granulocyte 0.00 k/uL Normal 0.00-0.30 [facility] Comment on above: Performed By: #### S TITUSKE #### [place] [address] [employer]per: Dario Almanza MD Abs.Neutrophil (Seg) 5.40 k/uL Normal 1.50-8.10 [facility] Comment on above: Performed By: #### S KAY #### [place] [address] [employer]per: Dario Almanza MD Basophils/100 WBC (Bld) 1 % Normal 0-2 [facility] Comment on above: Performed By: #### S KAY #### [place] [address] [employer]per: Dario Almanza MD Eosinophils (Bld) [#/Vol] 0.00 10*3/uL Normal 0.00-0.44 [facility] Comment on above: Performed By: #### S TITUSKE #### [address] [address] [employer]: Dario Almanza MD Eosinophils/100 WBC (Bld) 0 % Low 1-4 [facility] Comment on above: Performed By: #### S TITUSKE #### [address] [address] [employer]per: Dario Almanza MD Immature granulocytes/100 WBC (Bld) 0 % Normal 0 [facility] Comment on above: Performed By: #### S TROKE #### [address] [address] [employer]per: Dario Almanza MD Lymphocytes (Bld) [#/Vol] 0.43 10*3/uL Low 1.10-3.70 [facility] Comment on above: Performed By: #### S TROKE #### [address] [address] [employer]per: Dario Almanza MD Lymphocytes/100 WBC (Bld) 7 % Low 24-43 [facility] Comment on above: Performed By: #### S TROKE #### [address] [address] [employer]per: Dario Almanza MD Monocytes (Bld) [#/Vol] 0.31 10*3/uL Normal 0.10-1.20 [facility] Comment on above: Performed By: #### S TROKE #### [address] [address] [employer]per: Dario Almanza MD Monocytes/100 WBC (Bld) 5 % Normal 3-12 [facility] Comment on above: Performed By: #### S TROKE #### [address] [address] [employer]per: Dario Almanza MD Morphology David (Bld) [Interp] Normal Normal [facility] Comment on above: Performed By: #### S TROKE #### [address] [address] [employer]per: Dario Almanza MD Neutrophil (Seg) 87 % High 36-65 [facility] Comment on above: Performed By: #### S TROKE #### [address] [address] [employer]per: Dario Almanza MD Anion gap [Moles/Vol] 8 mmol/L Low 9-16 [facility] Comment on above: Performed By: #### S TROKE #### [address] [address] [employer]per: Dario Almanza MD Calcium [Mass/Vol] 8.5 mg/dL Low 8.6-10.4 [facility] Comment on above: Performed By: #### S TROKE #### [address] [address] [employer]per: Dario Almanza MD Chloride [Moles/Vol] 102 mmol/L Normal 98-107 [facility] Comment on above: Performed By: #### S TROKE #### [address] [address] [employer]per: Dario Almanza MD CK [Catalytic activity/Vol] 101 U/L Normal 39-308 [facility] Comment on above: Performed By: #### S TROKE #### [address] [address] [employer]per: Dario Almanza MD CO2 [Moles/Vol] 27 mmol/L Normal 20-31 [facility] Comment on above: Performed By: #### S TROKE #### [address] [address] [employer]per: Dario Almanza MD Creatinine [Mass/Vol] 1.1 mg/dL Normal 0.70-1.20 [facility] Comment on above: Performed By: #### S TROKE #### [address] [address] [employer]per: Dario Almanza MD GFR/1.73 sq M.predicted among non-blacks MDRD (S/P/Bld) [Vol rate/Area] 74 mL/min/{1.73_m2} Normal >60 [facility] Comment on above: Result Comment: These results [...] renal tubular secretion. Performed By: #### S TITUSKE #### [facility] [address] [place] [address] [employer]per: Dario Almanza MD Glucose [Mass/Vol] 174 mg/dL High 74-99 [facility] Comment on above: Performed By: #### S KAY #### [address] [address] [employer]per: Dario Almanza MD Myoglobin [Mass/Vol] 106 ng/mL High 28-72 [facility] Comment on above: Performed By: #### S TITUSKE #### [facility] [address] [place] [address] [employer] Helper: Dario Almanza MD Potassium [Moles/Vol] 4.0 mmol/L Normal 3.7-5.3 [facility] Comment on above: Result Comment: SPEC IMEN SLIGHTLY HEMOLYZED, RESULTS MAY BE ADVERSELY AFFECTED. Performed By: #### S TITUSKE #### [facility] [address] [place] [phone] [employer] Helper: Dario Almanza MD Sodium [Moles/Vol] 137 mmol/L Normal 136-145 [facility] Comment on above: Performed By: #### S TITUSKE #### [address] [address] Generation [employer] Helper: Dario Almanza MD Troponin, High Sens 24 ng/L High 0-22 [facility] Comment on above: Result Comment: High Sensitivity Troponin values cannot be compared with other Troponin methodologies. Performed By: #### S KAY #### [facility] [address] [place] [address] [employer] Helper: Dario Almanza MD Urea nitrogen [Mass/Vol] 16 mg/dL Normal 8-23 [facility] Comment on above: Performed By: #### S KAY #### [address] [address] [employer]per: Dario Almanza MD aPTT Coag (Bld) [Time] 22.1 s Low 23.0-36.5 [facility] Comment on above: Result Comment: IV Heparin Therapy Range: 66.0-92.0 sec Performed By: #### S KAY #### [address] [address] [employer]per: Dario Almanza MD INR Coag (PPP) [Relative time] 1.1 {INR} Normal [facility] Comment on above: Result Comment: Therapeutic Range: Moderate Anticoagulant Intensity: INR = 2.0-3.0 High Anticoagulant Intensity: INR = 2.5-3.5 Performed By: #### S KAY #### [address] [address] Generation [employer]per: Dario Almanza MD PT Coag (PPP) [Time] 13.6 s Normal 11.7-14.9 [facility] Comment on above: Performed By: #### S KAY #### [facility] [address] [place] [address] [employer]per: Dario Almanza MD Erythrocyte distribution width (RBC) [Ratio] 13.2 % Normal 11.8-14.4 [facility] Comment on above: Performed By: #### S KAY #### [facility] [address] [place] [address] Generation [employer] Helper: Dario Almanza MD Hematocrit (Bld) [Volume fraction] 42.4 % Normal 40.7-50.3 [facility] Comment on above: Performed By: #### S KAY #### [place] [address] Generation [employer] Helper: Dario Almanza MD Hemoglobin (Bld) [Mass/Vol] 13.9 g/dL Normal 13.0-17.0 [facility] Comment on above: Performed By: #### S KAY #### [place] [address] Generation [employer] Helper: Dario Almanza MD MCH (RBC) [Entitic mass] 29.6 pg Normal 25.2-33.5 [facility] Comment on above: Performed By: #### S KAY #### [place] [address] Generation [employer] Helper: Dario Almanza MD MCHC (RBC) [Mass/Vol] 32.8 g/dL Normal 28.4-34.8 [facility] Comment on above: Performed By: #### S KAY #### [place] [address] Generation [employer] Helper: Dario Almanza MD MCV (RBC) [Entitic vol] 90.2 fL Normal 82.6-102.9 [facility] Comment on above: Performed By: #### S KAY #### [place] [address] Generation [employer] Helper: Dario Almanza MD NRBC Automated 0.0 per 100 WBC Normal 0.0 [facility] Comment on above: Performed By: #### S KAY #### [place] [address] Generation [employer] Helper: Dario Almanza MD Platelet mean volume (Bld) [Entitic vol] 9.3 fL Normal 8.1-13.5 [facility] Comment on above: Performed By: #### S TROKE #### [facility] [address] [place] [address] Generation [employer]per: Dario Almanza MD Platelets (Bld) [#/Vol] 267 10*3/uL Normal 138-453 [facility] Comment on above: Performed By: #### S KAY #### [address] [address] Generation [employer] Helper: Dario Almanza MD RBC (Bld) [#/Vol] 4.70 10*6/uL Normal 4.21-5.77 [facility] Comment on above: Performed By: #### S KAY #### [address] [address] Generation [employer] Helper: Dario Alamnza MD WBC (Bld) [#/Vol] 6.2 10*3/uL Normal 3.5-11.3 [facility] Comment on above: Performed By: #### S KAY #### [address] [address] Generation Mechan[employer] Helper: Dario Almanza MD TSH w/reflex to FT4on 2023 Thyroid Stim. Horm. 1.44 uIU/mL Normal 0.27-4.20 [facility] Comment on above: Performed By: #### T SHX ####[place], [place] [address])[phone] Director: Dario Almanza MD Tox Scr, Bld, EDon 4 Acetaminophen [Mass/Vol] ug/mL Low 10-30 [facility] Comment on above: Performed By: #### E DTOX, LACTIC #### [facility] [address] [place] [address] Generation [employer] Helper: Dario Almanza MD Ethanol [Mass/Vol] mg/dL Normal <10 [facility] Comment on above: Performed By: #### E DTOX, LACTIC #### [address] [address] Generation Mechan[employer] Helper: Dario Almanza MD Ethanol percent <0.010 Normal <0.010 [facility] Comment on above: Performed By: #### E DTOX, LACTIC #### [address] [address] Generation [employer] Helper: Dario Almanza MD Salicylate <0.5 Normal 0.0-10.0 [facility] Comment on above: Performed By: #### E DTOX, LACTIC #### [address] [address] Generation Mechan[employer] Helper: Dario Almanza MD Urinalysis w/ Microon 2023 Bacteria None Normal NONE [facility] Comment on above: Performed By: #### U AMIC, MARIA D #### [address] [address] Generation [employer] Helper: Dario Almanza MD Bilirubin, SemiQt,Ur Negative Normal NEG [facility] Comment on above: Performed By: #### U AMIC, MARIA D #### [address] [address] Generation [employer] Helper: Dario Almanza MD Blood, Urine Negative Normal NEG [facility] Comment on above: Performed By: #### U AMIC, MARIA D #### [address] [address] Generation [employer] Helper: Dario Almanza MD Casts 5 TO 10 HYALINE Normal 0-8 [facility] Comment on above: Result Comment: Refe rence range defined for non-centrifuged specimen. Performed By: #### U AMIC, MARIA D #### [address] [address] Generation Mechan[employer] Helper: Dario Almanza MD Clarity (U) Clear Normal CLEAR [facility] Comment on above: Performed By: #### U AMIC, MARIA D #### [facility] [address] [place] [phone] Generation [employer] Helper: Dario Almanza MD Color (U) Yellow Normal YEL [facility] Comment on above: Performed By: #### U AMIC, MARIA D #### [address] [address] Generation Mechan[employer] Helper: Dario Almanza MD Epithelial cells LM Ql (Urine sed) 0 TO 2 Normal 0-5 [facility] Comment on above: Performed By: #### U AMIC, MARIA D #### [address] [address] Generation [employer] Helper: Dario Almanza MD Glucose Ql (U) 1+ mg/dL Abnormal NEG [facility] Comment on above: Performed By: #### U AMIC, MARIA D #### [address] [address] Generation [employer]per: Dario Almanza MD Ketones Ql (U) Negative Normal NEG [facility] Comment on above: Performed By: #### U AMIC, MARIA D #### [address] [address] [employer]per: Dario Almanza MD Leukocyte esterase Test strip Ql (U) Negative Normal NEG [facility] Comment on above: Performed By: #### U AMIC, MARIA D #### [facility] [address] [place] [address] Generation [employer] Helper: Dario Almanza MD Nitrite,Ur Negative Normal NEG [facility] Comment on above: Performed By: #### U AMIC, MARIA D #### [facility] [address] [place] [address] Generation Mechan[employer] Helper: Dario Almanza MD PH,Ur 7.0 Normal 5.0-8.0 [facility] Comment on above: Performed By: #### U AMIC, MARIA D #### [address] [address] Generation Mechan[employer] Helper: Dario Almanza MD Protein Ql (U) 1+ mg/dL Abnormal NEG [facility] Comment on above: Performed By: #### U AMIC, MARIA D #### [address] [address] Generation [employer] Helper: Dario Almanza MD Spec. [place],Ur 1.044 High 1.005-1.03 0 [facility] Comment on above: Performed By: #### U AMIC, MARIA D #### [address] [address] [employer] Helper: Dario Almanza MD Urine RBC's 0 TO 2 Normal 0-4 [facility] Comment on above: Result Comment: Refe rence range defined for non-centrifuged specimen. Performed By: #### U AMIC, MARIA D #### [facility] [address] [place] [address] Generation [employer] Helper: Dario Almanza MD Urine WBC's None Normal 0-5 [facility] Comment on above: Performed By: #### U AMIC, MARIA D #### [address] [address] Generation [employer] Helper: Dario Almanza MD Urobilinogen,Ur Normal Normal 0.0-1.0 [facility] Comment on above: Performed By: #### U AMIC, MARIA D #### [address] [address] Generation Mechan[employer] Helper: Dario Almanza MD Venous Bld Gas,POCon 024 HCO3 (Bld) [Moles/Vol] 31.9 mmol/L High 22.0-29.0 [facility] Oxygen saturation in Blood 45.4 % Low 60.0-85.0 [facility] pCO2, Venous 47.5 mm Hg Normal 41.0-51.0 [facility] pH,Venous 7.435 High 7.320-7.43 0 [facility] pO2, Venous 24.6 mm Hg Low 30.0-50.0 [facility] Positive Base Excess (calc) 6.4 mmol/L High 0.0-3.0 [facility] XR ABDOMEN (KUB) (SINGLE AP VIEW)on 07-14-2024 [...] Jt Gray MD 07/14/24 Final result Normal [facility] XR CHEST PORTABLEon 07-14-20 XR CHEST PORTABLE [...] Basil Witt DO 07/14/24 Final result Normal [facility] Calcium [Mass/volume] in Ser um or PlasmaOrdered By: Janae Jose on 05-05-2024 Calcium [Mass/Vol] 9.0 mg/dL 8.6-10.3 [facility] Carbon dioxide, total [Moles /volume] in Serum or PlasmaOrdered By: Janae Jose on 05-05-2024 CO2 [Moles/Vol] 30.3 mmol/L 21.0-31.0 [facility] Chloride [Moles/volume] in S andrei or PlasmaOrdered By: Janae Jose on 05-05-2024 Chloride [Moles/Vol] 98 mmol/L 98-107 [facility] Creatinine [Mass/volume] in Serum or PlasmaOrdered By: Janae Jose on 05-05-2024 Creatinine [Mass/Vol] 0.97 mg/dL 0.70-1.30 [facility] Glucose [Mass/volume] in Ser um or PlasmaOrdered By: Janae Jose on 05-05-2024 Glucose [Mass/Vol] 105 mg/dL 70-100 [facility] Comment on above: ADA recommended refe rence rangeRandom Glucose Reference Range is dependent on time and content of last meal. Glucose of more than 200 mg/dL in a nonstressed, ambulatory subject supports the diagnosis of Diabetes Mellitus. No Panel InformationOrdered By: Janae Jose on 05-05-2024 Estimated GFR (CKD-EPI) > 60.0 mL/Min [facility] Creatinine Clearance (Chem 82.90 [facility] Potassium [Moles/volume] in Serum or PlasmaOrdered By: Janae Jose on 05-05-2024 Potassium [Moles/Vol] 4.4 mmol/L 3.5-5.1 [facility] Serum or plasma anion gap de terminationOrdered By: Janae Jose on 05-05-2024 Anion gap [Moles/Vol] 8.1 mmol/L 6.0-15.0 [facility] Sodium [Moles/volume] in Ser um or PlasmaOrdered By: Janae Jose on 05-05-2024 Sodium [Moles/Vol] 132 mmol/L 136-145 [facility] Urea nitrogen [Mass/volume] in Serum or PlasmaOrdered By: Janae Jose on 05-05-2024 Urea nitrogen [Mass/Vol] 25 mg/dL 7-25 [facility] Ammonia [Moles/volume] in Pl asmaOrdered By: Víctor Agrawal on 05-04-2024 Ammonia (P) [Moles/Vol] 22 umol/L 1135 [facility] Basophils Auto (Bld) [#/Vol] Ordered By: Magdy Douglass on 05-04-2024 Basophils (Bld) [#/Vol] 0.0 10*3/uL 0.0-0.2 [facility] Basophils/100 WBC Auto (Bld) Ordered By: Magdy Douglass on 05-04-2024 Basophils/100 WBC (Bld) 0.1 % . [facility] Eosinophils Auto (Bld) [#/Vo l]Ordered By: Magdy Douglass on 05-04-2024 Eosinophils (Bld) [#/Vol] 0.0 10*3/uL 0.0-0.45 [facility] Eosinophils/100 WBC Auto (Bl d)Ordered By: Magdy Douglass on 05-04-2024 Eosinophils/100 WBC (Bld) 0.0 % . [facility] Erythrocyte distribution wid th Auto (RBC) [Ratio]Ordered By: Magdy Douglass on 05-04-2024 Erythrocyte distribution width (RBC) [Ratio] 16.5 % 12.0-14.8 [facility] Folate [Mass/volume] in Seru m or PlasmaOrdered By: Janae Jose on 05-04-2024 Folate [Mass/Vol] 9.7 ng/mL >5.9 [facility] Comment on above: Folate reference ran ge: >5.9 ng/mlThe WHO technical consultation on folate and vitamin [id number] has determined that folate concentrations lessthan 4 ng/ml are considered deficient. Hematocrit Auto (Bld) [Volum e fraction]Ordered By: Magdy Douglass on 05-04-2024 Hematocrit (Bld) [Volume fraction] 45.0 % 38.8-50.0 [facility] Hemoglobin [Mass/volume] in BloodOrdered By: Magdy Douglass on 05-04-2024 Hemoglobin (Bld) [Mass/Vol] 14.8 g/dL 13.0-17.0 [facility] Leukocytes [#/volume] correc srinivas for nucleated erythrocytes in Blood by Automated counOrdered By: Magdy Douglass on 05-04-2024 WBC corrected for nucl RBC Auto (Bld) [#/Vol] 9.6 10*3/uL 4.1-10.5 [facility] Lymphocytes Auto (Bld) [#/Vo l]Ordered By: Magdy Douglass on 05-04-2024 Lymphocytes (Bld) [#/Vol] 0.5 10*3/uL 1.00-4.8 [facility] Lymphocytes/100 WBC Auto (Bl d)Ordered By: Magdy Douglass on 05-04-2024 Lymphocytes/100 WBC (Bld) 4.9 % . [facility] MCH Auto (RBC) [Entitic mass ]Ordered By: Magdy Douglass on 05-04-2024 MCH (RBC) [Entitic mass] 29.8 pg 27.5-35.2 [facility] MCHC Auto (RBC) [Mass/Vol]Or dered By: Magdy Douglass on 05-04-2024 MCHC (RBC) [Mass/Vol] 32.9 g/dL 32.5-35.6 [facility] MCV Auto (RBC) [Entitic vol] Ordered By: Magdy Douglass on 05-04-2024 MCV (RBC) [Entitic vol] 90.4 fL 83.5-101 [facility] Monocytes Auto (Bld) [#/Vol] Ordered By: Magdy Douglass on 05-04-2024 Monocytes (Bld) [#/Vol] 0.3 10*3/uL 0.0-0.8 [facility] Monocytes/100 WBC Auto (Bld) Ordered By: Magdy Douglass on 05-04-2024 Monocytes/100 WBC (Bld) 3.0 % . [facility] Neutrophils Auto (Bld) [#/Vo l]Ordered By: Magdy Douglass on 05-04-2024 Neutrophils (Bld) [#/Vol] 8.9 10*3/uL 1.8-7.7 [facility] Neutrophils/100 WBC Auto (Bl d)Ordered By: Magdy Douglass on 05-04-2024 Neutrophils/100 WBC (Bld) 92.0 % . [facility] Nucleated erythrocytes [Pres ence] in Blood by Automated countOrdered By: Magdy Douglass on 05-04-2024 Nucleated RBC Auto Ql (Bld) 0.0 /100{WBC} 0-0.5 [facility] Platelet mean volume Auto (B ld) [Entitic vol]Ordered By: Magdy Douglass on 05-04-2024 Platelet mean volume (Bld) [Entitic vol] 6.5 fL 6.6-10.1 [facility] Platelets Auto (Bld) [#/Vol] Ordered By: Magdy Douglass on 05-04-2024 Platelets (Bld) [#/Vol] 417 10*3/uL 150-450 [facility] RBC Auto (Bld) [#/Vol]Ordere d By: Magdy Douglass on 05-04-2024 RBC (Bld) [#/Vol] 4.97 10*6/uL 3.90-5.60 [facility] Thyrotropin [Units/volume] i n Serum or PlasmaOrdered By: Janae Jose on 05-04-2024 TSH Qn 5.50 m[IU]/L 0.45-5.33 [facility] Vitamin B12 ser/plasOrdered By: Janae Jose on 05-04-2024 Cobalamin (Vitamin B12) [Mass/Vol] 500 pg/mL 180-914 [facility] WBC Auto (Bld) [#/Vol]Ordere d By: Magdy Douglass on 05-04-2024 WBC (Bld) [#/Vol] 9.6 10*3/uL 4.1-10.5 [facility] Alanine aminotransferase [En zymatic activity/volume] in Serum or PlasmaOrdered By: Magdy Douglass on 05-03-2024 ALT [Catalytic activity/Vol] 14 U/L 7-52 [facility] Albumin [Mass/volume] in Ser um or Plasma by Bromocresol green (BCG) dye binding methoOrdered By: Magdy Douglass on 05-03-2024 Albumin BCG dye [Mass/Vol] 3.1 g/dL 3.5-5.7 [facility] Alkaline phosphatase [Enzyma tic activity/volume] in Serum or PlasmaOrdered By: Magdy Douglass on 05-03-2024 ALP [Catalytic activity/Vol] 131 U/L 34-104 [facility] Aspartate aminotransferase [ Enzymatic activity/volume] in Serum or PlasmaOrdered By: Magdy Douglass on 05-03-2024 AST [Catalytic activity/Vol] 12 U/L 13-39 [facility] Bilirubin.total [Mass/volume ] in Serum or PlasmaOrdered By: Magdy Douglass on 05-03-2024 Bilirubin [Mass/Vol] 0.4 mg/dL 0.3-1.0 [facility] Globulin Calc (S) [Mass/Vol] Ordered By: Magdy Douglass on 05-03-2024 Globulin (S) [Mass/Vol] 2.8 g/dL [facility] Protein [Mass/volume] in Ser um or PlasmaOrdered By: Magdy Douglass on 05-03-2024 Protein [Mass/Vol] 5.9 g/dL 6.4-8.9 [facility] Serum or plasma albumin/glob ulin mass ratioOrdered By: Magdy Douglass on 05-03-2024 Albumin/Globulin [Mass ratio] 1.1 {ratio} [facility] C reactive protein [Mass/vol ume] in Serum or PlasmaOrdered By: Magdy Douglass on 05-02-2024 CRP [Mass/Vol] 2.5 mg/dL 0.0-0.5 [facility] Lactate [Moles/volume] in Se rum or PlasmaOrdered By: Magdy Douglass on 05-02-2024 Lactate [Moles/Vol] 0.6 mmol/L 0.5-2.2 [facility] Magnesium [Mass/volume] in S andrei or PlasmaOrdered By: Magdy Douglass on 05-02-2024 Magnesium [Mass/Vol] 2.1 mg/dL 1.9-2.7 [facility] Troponin I.cardiac [Mass/vol ume] in Serum or Plasma by Detection limit <= 0.01 ng/Ordered By: Janae Jose on 05-02-2024 Troponin I.cardiac DL <= 0.01 ng/mL [Mass/Vol] 74.8 pg/mL 0.0-20.0 [facility] Comment on above: Critical Result : Ca lled to and read back by: JAYLAN YAO at: 05/02/2024 15:02:51 by:JANET ACETAMINOPHENon 11-24-2022 Acetaminophen [Mass/Vol] ug/mL Normal 10.0-30.0 [facility] Comment on above: Performed By: #### S ALYC, ACET, CMP, ETH #### [facility] [address] [place] [address] Dr. Renny Azevedo CBC AUTO DIFFon 11-24-2022 BASO # 0.0 103/ul Normal 0.0-0.1 [facility] Comment on above: Performed By: #### C BC #### [facility] [address] [place] [address] Dr. Renny Azevedo Basophils/100 WBC (Bld) 0.8 % Normal 0.2-2.0 [facility] Comment on above: Performed By: #### C BC #### [facility] [address] [place] [address] Dr. Renny Azevedo EO # 0.3 103/ul Normal 0.0-0.7 [facility] Comment on above: Performed By: #### C BC #### [facility] [address] [place] [address] Dr. Renny Azevedo Eosinophils/100 WBC (Bld) 6.2 % Normal 0.9-7.0 [facility] Comment on above: Performed By: #### C BC #### [facility] [address] [place] [address] Dr. Renny Azevedo Erythrocyte distribution width (RBC) [Ratio] 14.8 % Normal 11.0-15.0 [facility] Comment on above: Performed By: #### C BC #### [facility] [address] [place] [address] Dr. Renny Azevedo Hematocrit (Bld) [Volume fraction] 38.6 % Critically low 42.0-54.0 [facility] Comment on above: Performed By: #### C BC #### [facility] [address] [place] [address] Dr. Renny Azevedo Hemoglobin (Bld) [Mass/Vol] 12.6 g/dL Critically low 14.0-18.0 [facility] Comment on above: Performed By: #### C BC #### [facility] [address] [place] [address] Dr. Renny Azevedo IG # 0.01 10e3/ul Normal 0.00-0.03 [facility] Comment on above: Performed By: #### C BC #### [facility] [address] [place] [address] Dr. Renny Azevedo IG % 0.2 % Normal 0.0-0.5 [facility] Comment on above: Performed By: #### C BC #### [facility] [address] [place] [address] Dr. Renny Azevedo LYMPH # 1.4 103/ul Normal 1.2-3.8 [facility] Comment on above: Performed By: #### C BC #### [facility] [address] [place] [address] Dr. Renny Azevedo Lymphocytes/100 WBC (Bld) 28.1 % Normal 20.5-60.0 [facility] Comment on above: Performed By: #### C BC #### [facility] [address] [place] [address] Dr. Renny Azevedo MANUAL DIFF REQ NO Normal [facility] Comment on above: Performed By: #### C BC #### [facility] [address] [place] [address] Dr. Renny Azevedo MCH (RBC) [Entitic mass] 31.0 pg Normal 25.9-34.0 [facility] Comment on above: Performed By: #### C BC #### [facility] [address] [place] [address] Dr. Renny Azevedo MCHC (RBC) [Mass/Vol] 32.6 g/dL Normal 29.9-35.2 [facility] Comment on above: Performed By: #### C BC #### [facility] [address] [place] [address] Dr. Renny Azevedo MCV (RBC) [Entitic vol] 95.1 fL Critically high 80.0-94.0 [facility] Comment on above: Performed By: #### C BC #### [facility] [address] [place] [address] Dr. Renny Azevedo MONO # 0.3 103/ul Normal 0.3-0.8 [facility] Comment on above: Performed By: #### C BC #### [facility] [address] [place] [address] Dr. Renny Azevedo Monocytes/100 WBC (Bld) 5.8 % Normal 1.7-12.0 [facility] Comment on above: Performed By: #### C BC #### [facility] [address] [place] [address] Dr. Renny Azevedo NEUT # 3.0 103/ul Normal 1.4-6.5 [facility] Comment on above: Performed By: #### C BC #### [facility] [address] [place] [address] Dr. Renny Azevedo Neutrophils/100 WBC (Bld) 58.9 % Normal 43.0-75.0 [facility] Comment on above: Performed By: #### C BC #### [facility] [address] [place] [address] Dr. Renny Azevedo Platelet mean volume (Bld) [Entitic vol] 8.8 fL Critically low 9.5-13.5 [facility] Comment on above: Performed By: #### C BC #### [facility] [address] [place] [address] Dr. Renny Azevedo PLT 260 103/ul Normal 150-450 [facility] Comment on above: Performed By: #### C BC #### [facility] [address] [place] [address] Dr. Renny Azevedo RBC 4.06 106/ul Critically low 4.70-6.10 [facility] Comment on above: Performed By: #### C BC #### [facility] [address] [place] [address] Dr. Renny Azevedo WBC 5.0 103/ul Normal 4.0-11.0 [facility] Comment on above: Performed By: #### C #### [facility] [address] [address] [address] CSPINE WO CONon 3 CT CSPINE WO CON EXAM: CT CSPINE [...] VIC ADAMES Date: 2022-11-24 05:42 Normal [facility] CT FACIAL BONES WO [...] ANNA RICO Date: 2022-11-24 05:43 Normal [facility] DRUG SCREEN RAPID (URINE)on 11-24-2022 AMP Positive Abnormal NEGATIVE [facility] Comment on above: Performed By: #### D RUGRPD #### [facility] [address] [address] [address] Renny Azevedo BAR Negative Normal NEGATIVE [facility] Comment on above: Performed By: #### D RUGRPD #### [facility] [address] [address] [address] Renny Azevedo BUP Negative Normal NEGATIVE [facility] Comment on above: Performed By: #### D RUGRPD #### [facility] [address] [address] [address] Renny Azevedo BZO Negative Normal NEGATIVE [facility] Comment on above: Performed By: #### D RUGRPD #### [facility] [address] [address] [address] Renny Azevedo SHAYE Positive Abnormal NEGATIVE [facility] Comment on above: Performed By: #### D RUGRPD #### [facility] [address] [place] [address] Dr. Renny Azevedo CUT-OFFS SEE BELOW Normal [facility] Comment on above: [...] ng/mL Performed By: #### D RUGRPD #### [facility] [address] [place] [address] Dr. Renny Azevedo DRUG CUT HEADER DRUG CLASS TEST SYST EM CUT-OFF CONCENTRATIONS ARE FOLLOWS: Normal [facility] Comment on above: Performed By: #### D RUGRPD #### [facility] [address] [place] [address] Dr. Renny Azevedo mAMP Positive Abnormal NEGATIVE [facility] Comment on above: Performed By: #### D RUGRPD #### [facility] [address] [address] [address] Renny Azevedo MTD Negative Normal NEGATIVE [facility] Comment on above: Performed By: #### D RUGRPD #### [facility] [address] [place] [address] Dr. Renny Azevedo OPI Negative Normal NEGATIVE [facility] Comment on above: Performed By: #### D RUGRPD #### [facility] [address] [place] [address] Dr. Renny Azevedo OXY Negative Normal NEGATIVE [facility] Comment on above: Performed By: #### D RUGRPD #### [facility] [address] [place] [address] Dr. Renny Azevedo PCP Negative Normal NEGATIVE [facility] Comment on above: Performed By: #### D RUGRPD #### [facility] [address] [place] [address] Dr. Renny Azevedo PPX Negative Normal NEGATIVE [facility] Comment on above: Performed By: #### D RUGRPD #### [facility] [address] [place] [address] Dr. Renny Azevedo TCA Negative Normal NEGATIVE [facility] Comment on above: Performed By: #### D RUGRPD #### [facility] [address] [place] [address] Dr. Renny Azevedo THC Negative Normal NEGATIVE [facility] Comment on above: Performed By: #### D RUGRPD #### [facility] [address] [place] [address] Dr. Renny Azevedo ETHANOL (BLD ALC)on 11-24-19 23 ALC NOTE NOTE: 80 mg/dl is th e legal limit for a blood alcohol level Normal [facility] Comment on above: Performed By: #### E TH #### [facility] [address] [place] [address] Dr. Renny Azevedo Ethanol [Mass/Vol] 169 mg/dL Normal [facility] Comment on above: Performed By: #### E TH #### [facility] [address] [place] [address] Dr. Renny Azevedo ALC NOTE NOTE: 80 mg/dl is th e legal limit for a blood alcohol level Normal [facility] Comment on above: Performed By: #### S ALYC, ACET, CMP, ETH #### [facility] [address] [place] [address] Dr. Renny Azevedo Ethanol [Mass/Vol] 239 mg/dL Normal [facility] Comment on above: Performed By: #### S ALYC, ACET, CMP, ETH #### [facility] [address] [place] [address] Dr. Renny Azevedo PROF 14(COMP METB)on 023 Albumin [Mass/Vol] 4.2 g/dL Normal 3.4-5.0 [facility] Comment on above: Performed By: #### S ALYC, ACET, CMP, ETH #### [facility] [address] [place] [address] Dr. Renny Azevedo Albumin/Globulin [Mass ratio] 1.3 {ratio} Normal [facility] Comment on above: Performed By: #### S ALYC, ACET, CMP, ETH #### [facility] [address] [place] [address] Dr. Renny Azevedo ALP [Catalytic activity/Vol] 99 U/L Normal 46-116 [facility] Comment on above: Performed By: #### S ALYC, ACET, CMP, ETH #### [facility] [address] [place] [address] Dr. Renny Azevedo ALT [Catalytic activity/Vol] 157 U/L Critically high 16-63 [facility] Comment on above: Performed By: #### S ALYC, ACET, CMP, ETH #### [facility] [address] [address] [address] Renny Azevedo Anion gap [Moles/Vol] 10.0 mmol/L Normal [facility] Comment on above: Performed By: #### S ALYC, ACET, CMP, ETH #### [facility] [address] [address] [address] Renny Azevedo AST [Catalytic activity/Vol] 362 U/L Critically high 15-37 [facility] Comment on above: Performed By: #### S ALYC, ACET, CMP, ETH #### [facility] [address] [address] [address] Renny Azevedo Bilirubin [Mass/Vol] 0.3 mg/dL Normal 0.2-1.0 [facility] Comment on above: Performed By: #### S ALYC, ACET, CMP, ETH #### [facility] [address] [address] [address] Renny Azevedo Calcium [Mass/Vol] 8.7 mg/dL Normal 8.5-10.1 [facility] Comment on above: Performed By: #### S ALYC, ACET, CMP, ETH #### [facility] [address] [address] [address] Renny Azevedo Chloride [Moles/Vol] 92 mmol/L Critically low 98-107 [facility] Comment on above: Performed By: #### S ALYC, ACET, CMP, ETH #### [facility] [address] [place] [address] Dr. Renny Azevedo CO2 [Moles/Vol] 30.4 mmol/L Normal 21.0-32.0 [facility] Comment on above: Performed By: #### S ALYC, ACET, CMP, ETH #### [facility] [address] [place] [address] Dr. Renny Azevedo Creatinine [Mass/Vol] 1.60 mg/dL Critically high 0.70-1.30 [facility] Comment on above: Performed By: #### S ALYC, ACET, CMP, ETH #### [facility] [address] [place] [address] Dr. Renny Azevedo EGFR-AF ISRAELI 53 mL/min/1.73m2 Critically low >=60 [facility] Comment on above: Performed By: #### S ALYC, ACET, CMP, ETH #### [facility] [address] [place] [address] Dr. Renny Azevedo EGFR-NON AF ISRAELI 44 mL/min/1.73m2 Critically low >=60 [facility] Comment on above: Performed By: #### S ALYC, ACET, CMP, ETH #### [facility] [address] [place] [address] Dr. Renny Azevedo Globulin (S) [Mass/Vol] 3.2 g/dL Normal [facility] Comment on above: Performed By: #### S ALYC, ACET, CMP, ETH #### [facility] [address] [place] [address] Dr. Renny Azevedo Glucose [Mass/Vol] 82 mg/dL Normal 74-106 [facility] Comment on above: Performed By: #### S ALYC, ACET, CMP, ETH #### [facility] [address] [address] [address] Renny Azevedo Potassium [Moles/Vol] 3.4 mmol/L Critically low 3.5-5.1 [facility] Comment on above: Performed By: #### S ALYC, ACET, CMP, ETH #### [facility] [address] [place] [address] Dr. Renny Azevedo Protein [Mass/Vol] 7.4 g/dL Normal 6.4-8.2 [facility] Comment on above: Performed By: #### S ALYC, ACET, CMP, ETH #### [facility] [address] [address] [address] Renny Azevedo Sodium [Moles/Vol] 129 mmol/L Critically low 136-145 [facility] Comment on above: Performed By: #### S ALYC, ACET, CMP, ETH #### [facility] [address] [place] [address] Dr. Renny Azevedo Urea nitrogen [Mass/Vol] 17.0 mg/dL Normal 7.0-18.0 [facility] Comment on above: Performed By: #### S ALYC, ACET, CMP, ETH #### [facility] [address] [place] [address] Dr. Renny Azevedo Urea nitrogen/Creatinine [Mass ratio] 10.6 mg/mg Normal [facility] Comment on above: Performed By: #### S ALYC, ACET, CMP, ETH #### [facility] [address] [place] [address] Dr. Renny Azevedo SALICYLATEon 11-24-2022 SALICYLATE 4.7 mg/dL Normal <=19.9 [facility] Comment on above: Performed By: #### S ALYC, ACET, CMP, ETH #### [facility] [address] [place] [address] LUMBAR SPINE WO [...] by:VANESA Tavaresigned by:Jay Gross MD10/14/18Final result Normal [facility] DISCHARGE SUMMARYon 02-06-20 DISCHARGE SUMMARY [address] [id number] DISCHARGE SUMMARYPATIENT NAME: AARON OLIVAREZ : 1960MED REC NO: [id number] ROOM: 0130ACCOUNT NO: [id number] ADMIT DATE: 01/29/2018PROVIDER: Elian Gladysurti DISCH DATE:HISTORY OF PRESENTING ILLNESS AND REASON FOR CURRENT ADMISSION: Thepatient is a 57-year-old male was using heroin and other drugs, feeldepressed and sad, having suicidal thoughts. He said his Suboxone wasstolen by somebody and he is upset about it. He feel that his life iswaste and he should kill himself and . With this, he is admitted to [facility] from [place].PAST PSYCHIATRIC HISTORY: History of major depression and [...] [facility]. [facility]ELIAN INDURTID: 02/05/2018 9:02:31 KIMBERLY/[email or web address]_OPSKU_TJob#: [id number] Doc#: [id number]: Normal [facility] CBC with Diffon 01-30-2018 Abs. Basophil 0.00 k/uL Normal 0.0-0.2 [facility] Comment on above: Performed By: #### C P, LIPR, TSHX, CDP ####[facility] [place] [address] #### T3, T4 ####[address] [place] [address] Abs.Neutrophil (Seg) 1.83 k/uL Normal 1.3-9.1 [facility] Comment on above: Performed By: #### C P, LIPR, TSHX, CDP ####[address] [place] [address] #### T3, T4 ####[address] [address] Basophils/100 WBC Auto (Bld) 0 % Normal 0-2 [facility] Comment on above: Performed By: #### C P, LIPR, TSHX, CDP ####[facility] [place] [address] #### T3, T4 ####[address] [address] Blood morphology Normal Normal [facility] Comment on above: Result Comment: Perf ormed at [facility] [address] [place] [address] Performed By: #### C P, LIPR, TSHX, CDP ####[address] [address] #### T3, T4 ####[address] [address] Eosinophils 0.04 10*3/uL Normal 0.0-0.4 [facility] Comment on above: Performed By: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 <Electronically signed by Yamila Donald MD> 11/20/24 192 [facility] Work Phone: 1(756) 340-865801-08-2025 [place] [address] Hospitalist Progress Note Signed Patient: Aaron Olivarez MR#: [id number] : 1960 Acct:[id number] Age/Sex: 64 / M Adm Date: 5 Loc: Room: [address] [place] [address] Type: ADM IN Attending Dr: Yamila Donald [...] Dose Route Start Last Admin Trade Name Roblesq PRN Reason Stop Dose Admin Aspirin 325 [...] Donald MD 11/20/24 1723 Signed By: 11/20/241920 [facility]01-08-2025 Progress note Author Yamila Donald [facility] Note Date/Time November 20, 2024 3: 02am [facility] [address] [place] [address] Hospitalist Progress Note Signed Patient: Aaron Olivarez MR#: [id number] : 1960 Acct:[id number] Age/Sex: 64 / M Adm Date: 5 Loc: Room: [address] [place] [address] Type: ADM IN Attending Dr: Yamila Donald [...] signed by Yamila Donald MD> 11/20/24 0302 [facility] Work Phone: 1(808) 307-318901-08-2025 [place] [address] Hospitalist Progress Note Signed Patient: Aaron Olivarez MR#: [id number] : 1960 Acct:[id number] Age/Sex: 64 / M Adm Date: 5 Loc: Room: [address] [place] [address] Type: ADM IN Attending Dr: Yamila Donald [...] By: Yamila Donald MD 11/19/242100 Signed By: 11/20/24 0302 [facility]01-07-2025 Progress note Author Neville Bush [facility] Note Date/Time November 19, 2024 6: 02pm [address] [place] [address] Neurology Progress Note Signed Patient: Aaron Olivarez MR#: [id number] : 1960 Acct:[id number] Age/Sex: 64 / M Adm Date: Loc: Room: [address] [place] [address] Type: ADM IN Attending Dr: Yamila Donald [...] follow-up. Documented By: Neville Bush DO 11/19/24 175 Signed By: <Electronically signed by Neville Bush DO> 11/19/241801 [facility] Work Phone: 1(209) 101-111201-07-2025 [place] [id number] Neurology Progress Note Signed Patient: Aaron Olivarez MR#: [id number] : 1960 Acct:[id number] Age/Sex: 64 / M Adm Date: 5 Loc: Room: [address] [place] [address] Type: ADM IN Attending Dr: Yamila Donald [...] follow-up. Documented By: Neville Bush DO 11/19/24 1751 Signed By: 11/19/24 1802 [facility]01-07-2025 Progress note Author Yamila Donald [facility] Note Date/Time November 19, 2024 3: 10am [facility] [address] [place] [address] Hospitalist Progress Note Signed Patient: Aaron Olivarez MR#: [id number] : 1960 Acct:[id number] Age/Sex: 64 / M Adm Date: 5 Loc: Room: [address] [place] [address] Type: ADM IN Attending Dr: Yamila Donald [...] 11/18/24 16:00 11/18/24 16:00 11/18/24 16:00 11/18/24 16:11/18/24 00:00 Narrative: GEN: NAD, not Cooperative [...] Lactated Ringers IV 11/18/24 17:34 70 mls/hr .[id number] CORBY Administration Levetiracetam 500 mg/ Dextrose 105 [...] signed by Yamila Donald MD> 11/19/24 0310 [facility] Work Phone: 1(121) 880-607501-07-[address] [address] Hospitalist Progress Note Signed Patient: Aaron Olivarez MR#: [id number] : 1960 Acct:[id number] Age/Sex: 64 / M Adm Date: 5 Loc: Room: [address] [place] [address] Type: ADM IN Attending Dr: Yamila Donald [...] violent require restrain Kuldeepdon was not effective Given his history of [...] Lactated Ringers IV 11/18/24 17:34 70 mls/hr .[id number] CORBY Administration Levetiracetam 500 mg/ Dextrose 105 [...] MD 11/18/24 1646 Signed By: 11/19/24 0310 [facility]01-06-2025 Consult note Author Neville Bush [facility] Note Date/Time November 18, 2024 5: 44pm [facility] [address] [place] [address] Neurology Consult Note Signed Patient: Aaron Olivarez MR#: [id number] : 1960 Acct:[id number] Age/Sex: 64 / M Adm Date: 5 Loc: Room: [address] [place] [address] Type: ADM IN Attending Dr: Yamila Donald MD Copies to: DO Sulaiman Mosquera DO Marwan Wassouf, MD~ HPI Consult Date: 11/18/24 Rotary Helper: Neville Bush DO [facility] Medical History Heavy smoker Heroin use H/O ETOH abuse COPD (chronic obstructive pulmonary disease) Social History Smoking Status: Unknown if ever smoked Substance Use Type: Marijuana, Heroin and Methamphetamine Social History Comments: Moved from [place] to [place] to live with son, Lamin. Meds Medications [...] Dung Chakraborty M.D.11/17/2024 8:43 AM Dictation Location: [facility]-17 Head CTA 11/17/24 08:25 IMPRESSION: No evidence of focal stenosis, aneurysmal dilatation, dissection or occlusion. No evidence of acute traumatic injury. The cervical spine and upper thoracic spine are grossly intact. Impression dictated by: Dung Chakraborty M.D.11/17/2024 8:59 AM Dictation Location: [facility]-17 Chest X-Ray 11/17/24 12:57 IMPRESSION: No acute cardiopulmonary pathology. Impression dictated by: Dung Chakraborty M.D.11/17/2024 1:26 PM Dictation Location: [facility]-17 Assessment/Plan (1) Seizure: Plan CONSULT REASON: Seizure, [...] <Electronically signed by Neville Bush DO> 11/18/24 174 [facility] Work Phone: 1(351) 438-379001-06-2025 Consult note Author Julito Mosley [facility] Note Date/Time November 18, 2024 4: 27pm [facility] [address] [place] [address] Cardiology Consult Note Signed Patient: Aaron Olivarez MR#: [id number] : 1960 Acct:[id number] Age/Sex: 64 / M Adm Date: 5 Loc: Room: [address] [place] [address] Type: ADM INOo Attending Dr: Yamila Donald [...] negative unless noted below or in HPI [facility] Medical History Heavy smoker Heroin use H/O ETOH abuse COPD (chronic obstructive pulmonary disease) Social History Smoking Status: Unknown if ever smoked Substance Use Type: Marijuana, Heroin and Methamphetamine Social History Comments: Moved from [place] to [place] to live with son, Lamin. Meds Medications [...] 11/18/24 14:26 11/18/24 14:26 11/18/24 14:26 11/18/24 00:00 Narrative: Physical Exam: General: NAD, awake, [...] x10E3/uL Lymph # (Auto) 1.4 (1.00-4.8) x10E3/uL [place]vert # (Auto) 0.6 (0.0-0.8) x10E3/uL Eos # [...] @ 70 1000 / 1000 mls/hr IV .[id number] CORBY Rx#: [id number] levETIRAcetam 500 mg In 105 / 105 Dextrose 5 % in Water 100 ml @ 420 mls/hr IV BID CORBY Rx#: [id number] Output: Urine 500 / 500 Other: # [...] <Electronically signed by Julito Mosley MD> 11/18/24 1625 [facility] Work Phone: 1(997) 363-572901-06-2025 [place] [address] Neurology Consult Note Signed Patient: Aaron Olivarez MR#: [id number] : 1960 Acct:[id number] Age/Sex: 64 / M Adm Date: 5 Loc: Room: [address] [place] [address] Type: ADM IN Attending Dr: Yamila Donald MD Copies to: DO Sulaiman Mosquera DO Marwan Wassouf, MD~ HPI Consult Date: 11/18/24 Rotary Helper: Neville Bush DO [facility] Medical History Heavy smoker Heroin use H/O ETOH abuse COPD (chronic obstructive pulmonary disease) Social History Smoking Status: Unknown if ever smoked Substance Use Type: Marijuana, Heroin and Methamphetamine Social History Comments: Moved from [place] to [place] to live with sonLamin. Meds Medications and [...] Dung Chakraborty M.D.11/17/2024 8:43 AM Dictation Location: [facility]17 Head CTA 11/17/24 08:25 IMPRESSION: No evidence of focal stenosis, aneurysmal dilatation, dissection or occlusion. No evidence of acute traumatic injury. The cervical spine and upper thoracic spine are grossly intact. Impression dictated by: Dung Chakraborty M.D.11/17/2024 8:59 AM Dictation Location: [facility]17 Chest X-Ray 11/17/24 12:57 IMPRESSION: No acute cardiopulmonary pathology. Impression dictated by: Dung Chakraborty M.D.11/17/2024 1:26 PM Dictation Location: [place] [address] Assessment/Plan (1) Seizure: Plan CONSULT REASON: Seizure, [...] Neville Bush DO 11/18/24 1738 Signed By: 11/18/24 1744 [facility]01-06-2025 [place] [address] Cardiology Consult Note Signed Patient: Aaron Olivarez MR#: [id number] : 1960 Acct:[id number] Age/Sex: 64 / M Adm Date: 5 Loc: Room: [address] [place] [address] Type: ADM INOo Attending Dr: Yamila Donald [...] negative unless noted below or in HPI [facility] Medical History Heavy smoker Heroin use H/O ETOH abuse COPD (chronic obstructive pulmonary disease) Social History Smoking Status: Unknown if ever smoked Substance Use Type: Marijuana, Heroin and Methamphetamine Social History Comments: Moved from [place] to [place] to live with son, Lamin. Meds Medications [...] x10E3/uL Lymph # (Auto) 1.4 (1.00-4.8) x10E3/uL [place]vert # (Auto) 0.6 (0.0-0.8) x10E3/uL Eos # [...] @ 70 1000 / 1000 mls/hr IV .[id number] [facility]BY Rx#: [id number] levETIRAcetam 500 mg In 105 / 105 Dextrose 5 % in Water 100 ml @ 420 mls/hr IV BID CORBY Rx#: [id number] Output: Urine 500 / 500 Other: # [...] MD 05/07 1612 Signed By: 11/18/24 1627 [facility]01-06-2025 Evaluation note* Diagnosis Onset Date Resolution Status Admit Date Acute CVA (cerebrovascular accident) acute November 18 1:02pm Altered mental status acute Alexi uary 2024 1:02pm Seizure acute November 18 025 1:02pm T wave inversion in EKG acute J anuary 2024 1:02pm [facility] Work Phone: 1(635) 344-550001-05-2025 Progress note Author Chaz Frey [facility] Note Date/Time November 17, 2024 2: 00pm [facility] ENTER [address] [place] [address] Progress Note Signed Patient: Aaron Olivarez MR#: [id number] : 1960 Acct:[id number] Age/Sex: 64 / M Adm Date: 5 Loc: Room: [address] [place] [address] Type: ADM INOo Attending Dr: Chaz Frey [...] signed by Chaz Frey MD> 11/17/24 1400 [facility] Work Phone: 1(799) 568-667201-05-2025 History and physical note Author Chaz Frey [facility] Note Date/Time November 17, 2024 1: 11pm [facility] EN[facility] [address] [place] [address] Hospitalist H&P Signed Patient: Aaron Olivarez MR#: [id number] : 1960 Acct:[id number] Age/Sex: 64 / M Adm Date: 5 Loc: Room: [address] [place] [address] Type: ADM INOo Attending Dr: Chaz Frey [...] was made not to transfer him to [place] for thrombectomy. On-call stroke team recommended admission to [facility] for neurological and seizure workup [...] patient had stroke before or seizure history. [facility] Medical History Heavy smoker Heroin use H/O ETOH abuse COPD (chronic obstructive pulmonary disease) Social History Smoking Status: Heavy tobacco smoker Social History Comments: Moved from [place] to [place] to live with son, Lamin. Meds Medications [...] % (Auto) 4.4 % (.) 11/17/24 08:28 Calvert % (Auto) 3.3 % (.) 11/17/24 08:28 Eos % (Auto) 0.1 % (.) 11/17/24 08:28 Baso % (Auto) 0.4 % (.) 11/17/24 08:28 Nucleat RBC Rel Count 0.1 /100 WBC (0-0.5) 11/17/24 08:28 Neut # (Auto) 9.2 x10E3/uL (1.8-7.7) H 11/17/24 08:28 Lymph # (Auto) 0.4 x10E3/uL (1.00-4.8) L 11/17/24 08:28 Calvert # (Auto) 0.3 x10E3/uL (0.0-0.8) 11/17/24 08: Eos # (Auto) 0.0 x10E3/uL (0.0-0.45) 11/17/24 08: Baso # (Auto) 0.0 x10E3/uL (0.0-0.2) 11/17/24 08: Monocyte Dist Width 15.39 % (0.00-20.00) 11/17/24 08: PT 11.9 Seconds (9.0-12.9) 11/17/24: INR 1.0 11/17/24 08: APTT 22.3 Seconds [...] H 11/17/24 08: POC Glucose 175 mg/dl 11/17/24: Calcium 9.1 mg/dL (8.6-10.3) 11/17/24 08: Total Bilirubin 0.6 mg/dl (0.3-1.0) 11/17/24 08: AST 24 U/L (13-39) 11/17/24 08:28 ALT [...] admit him to the medical floor at [place] I started him on aspirin and statin. [...] signed by Chaz Frey MD> 11/17/24 1311 [facility] Work Phone: 1(311) 545-793301-05-[address] [address] Progress Note Signed Patient: Aaron Olivarez MR#: [id number] : 1960 Acct:[id number] Age/Sex: 64 / M Adm Date: 5 Loc: Room: [address] [place] [address] Type: ADM INOo Attending Dr: Chaz Frey [...] MD 11/17/24 1359 Signed By: 11/17/24 1400 [facility]01-05-2025 History and physical [address] [address] Hospitalist H&P Signed Patient: Aaron Olivarez MR#: [id number] : 1960 Acct:[id number] Age/Sex: 64 / M Adm Date: 5 Loc: Room: 5T5605-6 Type: ADM INOo Attending Dr: Chaz Frey [...] was made not to transfer him to [place] for thrombectomy. On-call stroke team recommended admission to [facility] for neurological andseizure workup with [...] patient had stroke before or seizure history. [facility] Medical History Heavy smoker Heroin use H/O ETOH abuse COPD (chronic obstructive pulmonary disease) Social History Smoking Status: Heavy tobacco smoker Social History Comments: Moved from [place] to [place] to live with son, Lamin. Meds Medications [...] 11/17/24 08: RBC 5.42 x10E6/uL (3.90-5.60) 11/17/24 08: Hgb 15.6 g/dL (13.0-17.0) 11/17/24 08: Hct [...] % (Auto) 4.4 % (.) 11/17/24 08: Calvert % (Auto) 3.3 % (.) 11/17/24 08: Eos % (Auto) 0.1 % (.) 11/17/24 08: Baso % (Auto) 0.4 % (.) 11/17/24 08: Nucleat RBC Rel Count 0.1 /100 WBC (0-0.5) 11/17/24 08: Neut # (Auto) 9.2 x10E3/uL (1.8-7.7) H 11/17/24 08: Lymph # (Auto) 0.4 x10E3/uL (1.00-4.8) L 11/17/24 08: Calvert # (Auto) 0.3 x10E3/uL (0.0-0.8) 11/17/24 08: Eos # (Auto) 0.0 x10E3/uL (0.0-0.45) 11/17/24 08:28 Baso # (Auto) 0.0 x10E3/uL (0.0-0.2) 11/17/24 08:28 Monocyte Dist Width 15.39 % (0.00-20.00) 11/17/24 08: PT 11.9 Seconds (9.0-12.9) 11/17/24 08: INR 1.0 11/17/24 08: APTT 22.3 Seconds (25.1-36.5) L 11/17/24 08: PHA Creatinine Clear N/A 11/17/24 08:28 Sodium 142 mmol/L (136-145) 11/17/24 08:28 Potassium 4.2 mmol/L (3.5-5.1) 11/17/24 08: Chloride 104 mmol/L (98-107) 11/17/24 08: Carbon Dioxide 29.2 mmol/L (21.0-31.0) 11/17/24 08: Anion Gap 13.0 mEq/L (6.0-15.0) 11/17/24 08: BUN 16 mg/dL (7-25) 11/17/24 08: Creatinine 1.27 mg/dL (0.70-1.30) 11/17/24 08:28 Est GFR (CKD-EPI) > 60.0 mL/Min 11/17/24 08: Glucose 163 mg/dL (70-100) H 11/17/24 08:28 POC Glucose 175 mg/dl 11/17/24 08: Calcium 9.1 mg/dL (8.6-10.3) 11/17/24 08: Total Bilirubin 0.6 mg/dl (0.3-1.0) 11/17/24 08: AST 24 U/L (13-39) 11/17/24 08:28 ALT [...] admit him to the medical floor at [place] I started him on aspirin and statin. [...] stay (# of days): 4 Documented By: Chza Frey MD 11/17/24 1301 Signed By: 11/17/24 1311 [facility]01-05-2025 Evaluation note* Diagnosis Onset Date Resolution Status Admit Date Acute CVA (cerebrovascular accident) acute November 17 9:54am Altered mental status acute Nov 9:54am Seizure acute November 17 9:54am [facility] Work Phone: 1(539) 294-826801-05-2025 Radiology Diagnostic study [facility] [place] [address] CT Scan Report Signed Patient: Aaron Olivarez MR#: [id number] : 1960 Acct:[id number] Age/Sex: 64 / M ADM Date: Loc: ER Room: Type: PRE ER Attending Dr: Copies to: Ragini Carmona DO~ Ordering Provider: Ragini Carmona DO Date of Service: 11/17/24 CT/CT angio head: cva ([id number]) CT/CT angio neck: cva CT angio head, [...] Dung Chakraborty M.D.11/17/2024 8:59 AM Dictation Location: [place] [address] Transcribed By: [facility] 11/17/24858 Dictated By: Dung Chakraborty II, MD 11/17/24 0852 Signed By: 11/17/24 0859 [facility] Work Phone: 1(235) 191-430701-05-2025 [facility]iology [facility] [place] [address] [place] [address] CT Scan Report Signed Patient: Aaron Olivarez MR#: [id number] : 1960 Acct:[id number] Age/Sex: 64 / M ADM Date: 5 Loc: ER Room: Type: PRE ER Attending [...] Dung Chakraborty M.D.11/17/2024 8:43 AM Dictation Location: [place] [address] Transcribed By: [facility] 11/17/24 0843 Dictated By: Dugn Chakraborty II, MD 11/17/24 0837 Signed By: 11/17/24 0843 [facility] Work Phone: 1(598) 364-225409-01-2024 NoteADDENDUM: Results were called to the ordering [...] Mati Valerio MD 07/14/24 Edited Result - [facility]06-24-2024 Discharge summary Author Kiko Maldonado [facility] May 06, 2024 2:21pm Note Date/Time May 06, 2024 11:4 4am [facility] EN[facility] [address] [place] [address] Discharge Summary Signed Patient: Aaron Olivarez MR#: [id number] : 1960 Acct:[id number] Age/Sex: 63 / M Adm Date: 4 Loc: Room: [address] [place] [address]: Kiko Maldonado MD Copies to: [...] He presented to the emergency department at [facility] on May 01, with complaints [...] <Electronically signed by Kiko Maldonado MD> 05/06/24 1428 [facility] Work Phone: 1(437) 978-680306-24-2024 Progress note Author Thanh Paris [facility] May 06, 2024 10:16am Note Date/Time May 06, 2024 10:1 6am [facility] [address] [place] [address] Pulmonology Progress Note Signed Patient: Aaron Olivarez MR#: [id number] : 1960 Acct:[id number] Age/Sex: 63 / M Adm Date: 4 Loc: Room: [address] [place] [address] Type: ADM IN Attending Dr: Janae Jose MD Copies to: ~ Date of Service: 05/06/2024 Subjective Subjective Narrative: Patient voices no complaints at the time my evaluation. He is very interested in being discharged today as he can relax at home as opposed to being in the hospital. He knows he is in a hospital but does not know that he is at [facility] in [place]. He also knows it is 2023. Exam [...] signed by MD Thanh Paris> 05/06/24 1016 [facility] Work Phone: 1(228) 320-451306-23-2024 Progress note Author Janae Jose [facility] May 05, 2024 1:27pm Note Date/Time May 05, 2024 1:22 pm [facility] [address] [place] [address] Hospitalist Progress Note Signed Patient: Aaron Olivarez MR#: [id number] : 1960 Acct:[id number] Age/Sex: 63 / M Adm Date: 4 Loc: Room: [address] [place] [address] Type: ADM IN Attending Dr: Janae Jose [...] down without significant elevation. Suspecting type II AK from hypoxia. Echocardiogram showing preserved ejection fraction with mild LVH. No wall motion abnormality seen. EKG negative for acute ischemic changes. Documented By: Janae Jose MD 05/05/24 1319 Signed By: <Electronically signed by Janae Jose MD> 05/05/24 1327 [facility] Work Phone: 1(180) 943-696306-23-2024 Progress note Author Víctor Agrawal [facility] May 05, 2024 11:29am Note Date/Time May 05, 2024 11:2 9am [facility] [address] [place] [address] Pulmonology Progress Note Signed Patient: Aaron Olivarez MR#: [id number] : 1960 Acct:[id number] Age/Sex: 63 / M Adm Date: 4 Loc: Room: [address] [place] [address] Type: ADM IN Attending Dr: Janae Jose [...] edema, no clubbing. Skin: No skin rash LEGAL ADVISER: Sleepy, easily arousable, no focal deficits. Objective [...] <Electronically signed by Víctor Agrawal MD> 05/05/24 1129 [facility] Work Phone: 1(128) 321-901006-22-2024 Progress note Author Janae Jose [facility] May 04, 2024 12:19pm Note Date/Time May 04, 2024 12:1 3pm [facility] [address] [place] [address] Hospitalist Progress Note Signed Patient: Aaron Olivarez MR#: [id number] : 1960 Acct:[id number] Age/Sex: 63 / M Adm Date: 4 Loc: Room: [address] [place] [address] Type: ADM IN Attending Dr: Janae Jose [...] down without significant elevation. Suspecting type II AK from hypoxia. Echocardiogram showing preserved ejection fraction with mild LVH. No wall motion abnormality seen. Negative for acute ischemic changes. Documented By: Janae Jose MD 05/04/241209 Signed By: <Electronically signed by Janae Jose MD> 05/04/24 121 [facility] Work Phone: 1(147) 800-281006-22-2024 Progress note Author Víctor Agrawal [facility] May 04, 2024 12:03pm Note Date/Time May 04, 2024 11:5 4am [facility] [address] [place] [address] Pulmonology Progress Note Signed Patient: Aaron Olivarez MR#: [id number] : 1960 Acct:[id number] Age/Sex: 63 / M Adm Date: 4 Loc: Room: [address] [place] [address] Type: ADM IN Attending Dr: Janae Jose [...] Musculoskeletal: No edema Skin: No skin rash LEGAL ADVISER: Drowsy and confused, does not interact or verbalize much. Unable to fully assess neurostatus due to current clinical condition Objective Intake and Output I&O - Last 24 Hours: Intake & Output 05/03/24 05/04/24 05/04/24 23:59 07:59 15:59 Intake Total 272 / 1044 400 / 400 Output Total 300 / 1000 200 / 200 Balance -28 / 44 200 / 200 Weight 77.2 kg Labs [...] signed by Víctor Agrawal MD> 05/04/24 1203 [facility] Work Phone: 1(723) 571-881006-21-2024 Progress note Author Víctor Agrawal [facility] May 03, 2024 1:57pm Note Date/Time May 03, 2024 1:57 pm [facility] [address] [place] [address] Pulmonology Progress Note Signed Patient: Aaron Olivarez MR#: [id number] : 1960 Acct:[id number] Age/Sex: 63 / M Adm Date: 4 Loc: Room: [address] [place] [address] Type: ADM IN Attending Dr: Janae Jose [...] Musculoskeletal: No edema Skin: No skin rash LEGAL ADVISER: Drowsy, 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 No focal deficits Objective Intake [...] <Electronically signed by Víctor Agrawal MD> 05/03/24 3836 [facility] Work Phone: 1(386) 147-991606-21-2024 Progress note Author Janae Jose [facility] May 03, 2024 12:57pm Note Date/Time May 03, 2024 12:5 7pm [facility] [address] [place] [address] Hospitalist Progress Note Signed Patient: Aaron Olivarez MR#: [id number] : 1960 Acct:[id number] Age/Sex: 63 / M Adm Date: 4 Loc: Room: [address] [place] [address] Type: ADM IN Attending Dr: Janae Jose [...] down without significant elevation. Suspecting type II AK from hypoxia. Pending echocardiogram to assess LV function and wall motion. Will obtain twelve-lead EKG. Documented By: Janae Jose MD 05/03/24 5655 Signed By: <Electronically signed by Janae Jose MD> 05/03/[address] [place] [address] Ctr Work Phone: 1(263) 675-924806-20-2024 Progress note Author Janae Jose [facility] May 02, 2024 1:49pm Note Date/Time May 02, 2024 1:49 pm [facility] [address] [place], [place] [id number] Event Note Signed Patient: Aaron Olivarez MR#: [id number] : 1960 Acct:[id number] Age/Sex: 63 / M Adm Date: 4 Loc: Room: [address] [place] [address] Type: ADM IN Attending Dr: Janae Jose [...] <Electronically signed by Janae Jose MD> 05/02/24 [facility]9 [facility] Work Phone: 1(942) 580-891606-20-2024 Consult note Author Víctor Agrawal [facility] May 02, 2024 1:47pm Note Date/Time May 02, 2024 1:42 pm [facility] [address] [place], [place] [id number] Pulmonology Consult Note Signed Patient: Aaron Olivarez MR#: [id number] : 1960 Acct:[id number] Age/Sex: 63 / M Adm Date: 4 Loc: 4C Room: [address] [place] [address] Type: ADM IN Attending Dr: Janae Jose [...] and history of hypertension was transferred from [facility] directly into ICU. Apparently, patient was experiencing productive cough with thick yellow phlegm and increased shortness of breath prior to his presentation to [facility]. Patient was found by familylethargic and difficult to arouse, oxygen saturation was 70% on room air, venousblood gas showed pCO2 of 80 with pH of 7.32. Patient refused BiPAP. Chest CT angiogram reported negative for PE, showed right lower lobe consolidation consistent with pneumonia. [facility] Social History Smoking Status: Heavy tobacco smoker [...] Musculoskeletal: No edema Skin: No skin rash LEGAL ADVISER: Drowsy, no focal deficits Results - Pulmonology [...] signed by Víctor Agrawal MD> 05/02/24 1347 [facility] Work Phone: 1(363) 202-630306-20-2024 History and physical note Author Magdy Douglass [facility] May 02, 2024 7:12am Note Date/Time May 02, 2024 7:11 am [facility] [address] [place] [address] Hospitalist H&P Signed Patient: Aaron Olivarez MR#: [id number] : 1960 Acct:[id number] Age/Sex: 63 / M Adm Date: 4 Loc: Room: [address] [place] [address] Type: ADM IN Attending Dr: Janae Jose MD Copies to: MD Sulaiman Ruggiero, DO Janae Jose MD~ HPI DATE OF EXAMINATION: 05/01/24 CHIEF COMPLAINT: cough, dyspnea, altered mental status HISTORY OF PRESENT ILLNESS: 63 year old man with history of HTN, COPD, tobacco abuse who presented to [facility] with the above complaints. Per the patient for 2-3 days prior to admission he was having a cough productiveof thick yellow sputum and increasing dyspnea with exertion. On the date of presentation family members went to see the patient and found that he was lethargic and difficult to arouse so he was brought to [facility] for evaluation. On arrival there pulse [...] negative except as noted in the HPI [facility] Social History Smoking Status: Heavy tobacco smoker [...] % (Auto) 7.8 % (.) 05/02/24 04:20 Calvert % (Auto) 8.2 % (.) 05/02/24 04:20 Eos % (Auto) 0.0 % (.) 05/02/24 04:20 Baso % (Auto) 0.2 % (.) 05/02/24 04:20 Nucleat RBC Rel Count 0.2 /100 WBC (0-0.5) 05/02/24 04:20 Neut # (Auto) 6.3 x10E3/uL (1.8-7.7) 05/02/24 04:20 Lymph # (Auto) 0.6 x10E3/uL (1.00-4.8) L 05/02/24 04:20 Calvert # (Auto) 0.6 x10E3/uL (0.0-0.8) 05/02/24 04:20 [...] signed by Magdy Douglass MD> 05/02/24 0712 [facility] Work Phone: Consult note Author Patricio Galaviz [facility] May 06, 2024 1:01pm Note Date/Time May 06, 2024 1:01 pm [facility] [address] [place] [address] Physiatry (Rehab) Consult Note Signed Patient: Aaron Olivarez MR#: [id number] : 1960 Acct:[id number] Age/Sex: 63 / M Adm Date: 4 Loc: Room: 4M9408-7 Type: ADM IN Attending Dr: Kiko Maldonado [...] negative unless noted below or in HPI [facility] Medical History Heavy smoker Heroin use H/O ETOH abuse COPD (chronic obstructive pulmonary disease) Social History Smoking Status: Heavy tobacco smoker Social History Comments: Moved from [place] to [place] to live with son, Lamin. Meds Medications [...] chart, including current orders, allied health and sr technical sales consultant notes, labs/imaging and performed fairbanks elements of exam and I formulated the plan of care and facilitated the medical decision making. I completed a substantive portion of this encounter, the medical decision making portion of this note in its entirety, including Allied health note review, nursing note review, sr technical sales consultant note review, discussion with nursing and case management, and more than 50% of my time was spent on counseling and coordination of care, time spent 60 minutes Documented By: Patricio Galaviz MD 05/06/24 1251 Signed By: <Electronically signed by Patricio Galaviz MD> 05/06/24 1301 [facility] Work Phone: Consult note Author Julito Mosley [facility] Note Date/Time November 18, 2024 4: 27pm [facility] [address] [place] [address] Cardiology Consult Note Signed Patient: Aaron Olivarez MR#: [id number] : 1960 Acct:[id number] Age/Sex: 64 / M Adm Date: 5 Loc: Room: [address] [place] [address] Type: ADM INOo Attending Dr: Yamila Donald [...] negative unless noted below or in HPI [facility] Medical History Heavy smoker Heroin use H/O ETOH abuse COPD (chronic obstructive pulmonary disease) Social History Smoking Status: Unknown if ever smoked Substance Use Type: Marijuana, Heroin and Methamphetamine Social History Comments: Moved from [place] to [place] to live with son, Lamin. Meds Medications [...] 14:26 11/18/24 14:26 11/18/24 14:26 11/18/24 14:11/18/24 00:00 Narrative: Physical Exam: General: NAD, [...] x10E3/uL Lymph # (Auto) 1.4 (1.00-4.8) x10E3/uL Calvert # (Auto) 0.6 (0.0-0.8) x10E3/uL Eos # [...] @ 70 1000 / 1000 mls/hr IV .[id number] CORBY Rx#: [id number] levETIRAcetam 500 mg In 105 / 105 Dextrose 5 % in Water 100 ml @ 420 mls/hr IV BID CORBY Rx#: [id number] Output: Urine 500 / 500 Other: # [...] signed by Julito Mosley MD> 11/18/24 1627 [facility] Work Phone: Consult note Author Neville Bush [facility] Note Date/Time November 18, 2024 5: 44pm [facility] [address] [place] [address] Neurology Consult Note Signed Patient: Aaron Olivarez MR#: [id number] : 1960 Acct:[id number] Age/Sex: 64 / M Adm Date: 5 Loc: Room: [address] [place] [address] Type: ADM IN Attending Dr: Yamila Donald MD Copies to: DO Sulaiman Mosquera DO Marwan Wassouf, MD~ HPI Consult Date: 11/18/24 Rotary Helper: Neville Bush DO [facility] Medical History Heavy smoker Heroin use H/O ETOH abuse COPD (chronic obstructive pulmonary disease) Social History Smoking Status: Unknown if ever smoked Substance Use Type: Marijuana, Heroin and Methamphetamine Social History Comments: Moved from [place] to [place] to live with son, Lamin. Meds Medications [...] Chakraborty M.D.11/17/2024 8:43 AM Dictation Location: [facility]-17 Head CTA 11/17/24 08:25 IMPRESSION: No evidence of focal stenosis, aneurysmal dilatation, dissection or occlusion. No evidence of acute traumatic injury. The cervical spine and upper thoracic spine are grossly intact. Impression dictated by: Dung Chakraborty M.D.11/17/2024 8:59 AM Dictation Location: [place] [address] Chest X-Ray 11/17/24 12:57 IMPRESSION: No acute cardiopulmonary pathology. Impression dictated by: Dung Chakraborty M.D.11/17/2024 1:26 PM Dictation Location: [place] [address] Assessment/Plan (1) Seizure: Plan CONSULT REASON: Seizure, [...] <Electronically signed by Neville Bush DO> 11/18/24 1744 [facility] Work Phone: Evaluation note* [...] cute Tobacco abuse acute Uncontrolled hypertension ac [facility] Work Phone: Progress note Author Yamila Donald [facility] Note Date/Time November 19, 2024 3: 10am [facility] [address] [place] [address] Hospitalist Progress Note Signed Patient: Aaron Olivarez MR#: [id number] : 1960 Acct:[id number] Age/Sex: 64 / M Adm Date: 5 Loc: Room: [address] [place] [address] Type: ADM IN Attending Dr: Yamila Donald [...] Lactated Ringers IV 11/18/24 17:34 70 mls/hr .[id number] [facility]BY Administration Levetiracetam 500 mg/ Dextrose 105 [...] signed by Yamila Donald MD> 11/19/24 0310 [facility] Work Phone: Progress note Author Neville Bush [facility] Note Date/Time November 19, 2024 6: 02pm [facility] [address] [place] [address] Neurology Progress Note Signed Patient: Aaron Olivarez MR#: [id number] : 1960 Acct:[id number] Age/Sex: 64 / M Adm Date: Loc: Room: [address] [place] [address] Type: ADM IN Attending Dr: Yamila Donald [...] Neville Bush DO 11/19/24 1759 Signed By: <Electronically signed by Neville Bush DO> 11/19/24 2591 [facility] Work Phone: Progress note Author Yamila Donald [facility] Note Date/Time November 20, 2024 3: 02am [facility] [address] [place] [address] Hospitalist Progress Note Signed Patient: Aaron Olivarez MR#: [id number] : 1960 Acct:[id number] Age/Sex: 64 / M Adm Date: 5 Loc: Room: [address] [place] [address] Type: ADM IN Attending Dr: Yamila Donald [...] PO 11/18/25 08:59 Not Given DAILY [facility] Atorvastatin Calcium 40 mg 11/17/24 21:00 [...] signed by Yamila Donald MD> 11/20/24 0302 [facility] Work Phone: Progress note Author Yamila Donald [facility] Note Date/Time November 20, 2024 7: 21pm [facility] [address] [place] [address] Hospitalist Progress Note Signed Patient: Aaron Olivarez MR#: [id number] : 1960 Acct:[id number] Age/Sex: 64 / M Adm Date: 5 Loc: Room: [address] [place] [address] Type: ADM IN Attending Dr: Yamila Donald [...] signed by Yamila Donald MD> 11/20/24 1921 [facility] Work Phone: Reason for referral (narrative)No reason for referral information available[facility] Work Phone: Summary Purpose [...] Date/ Time Advance Directives No May 21 6:10pm Chief Complaint and Reason for Visit [...] wave inversion in EKG November 18 1:02pm Chief Complaint 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, 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 8:22 am Reason for Visit Admit Date History of seizure disorder June 07 8:22am Polysubstance abuse June 07, 2025 8:[address] elevation myocardial infarction (STEM I) of inferior wall June 07, 2025 8:22am Additional Source Comments (unrecognized sect ion and content) No Status Records FoundNo Status Records FoundNo Status Records FoundNo Status Records FoundNo Status Records FoundNo Status Records FoundNo Status Records FoundNo Status Records FoundNo Status Records FoundNo Status Records FoundNo Status Records Found INFORMATION SOURCE (unrecogn ized section and content) DATE CREATED AUTHOR 05/01/2018 [facility] DATE CREATED AUTHOR AUTHOR'S ORGANIZ ATION 05/04/2018 [facility] DATE CREATED AUTHOR AUTHOR'S ORGANIZ ATION 05/07/2018 [facility] DATE CREATED AUTHOR AUTHOR'S ORGANIZ ATION 05/09/2018 [facility] DATE CREATED AUTHOR AUTHOR'S ORGANIZ ATION 10/23/2018 [facility] DATE CREATED AUTHOR AUTHOR'S ORGANIZ ATION 11/28/2022 [facility] DATE CREATED AUTHOR AUTHOR'S ORGANIZ ATION 07/24/2024 [place] DATE CREATED AUTHOR AUTHOR'S ORGANIZ ATION 11/24/2024 [facility] DATE CREATED AUTHOR AUTHOR'S ORGANIZ ATION 06/10/2025 [facility] DATE CREATED AUTHOR AUTHOR'S ORGANIZ ATION 06/22/2025 [facility] Care Teams (unrecognized sec tion and content) Team Status: Active Member Role Status Dates Sulaiman Feldman DO Primary Care Provider Active Team Status: Active Member Role Status Dates Sulaiman Feldman DO Primary Care Provider Active Start: June 07, 2025 Usman Driver MD Admit Provider Active Start: May Usman Driver MD Other Provider Active Start: May Donna Marcelo Other Provider Active Start: June 07, 2025 Sivan Francois , Other Provider Active Start: June 07, 2025 Reno Hubbard MD Other Provider Active Start : June 07, 2025 Thanh Kenney , Other Provider Active Start: June 07, 2025 Neville Bush , Other Provider Active Start: June 07, 2025 Bella Cano , LEN Other Provider Active St art: June 07, 2025 Alejandra Montenegro , BROACH GRINDER-WIRE LOOP MACHINE OPERATOR-C Other Provider Active Start: June 07, 2025 Ratna Denton APRN ACNP-BC Other Provider Active Start: June 07, 2025 Thanh Paris MD Other Provider Active Start: June 07, 2025 Víctor Agrawal MD Other Provider Active St art: June 07, 2025 Neville Rojas MD Other Provider Active Start: 2024 Kota Carreno DO Attending Provider Active Sta rt: June 07, 2025 Kota Carreno , Other Provider Active Start: June 07, 2025 Michael Willoughby , Other Provider Active Start: June 07, 2025 Lizett Murray MD Other Provider Active Start: 2024 Twin Ruiz MD Other Provider Activ e Start: June 07, 2025 Brandy Wilburn MD Other Provider Active Start: 2024 Sherrie Perez MD Other Provider Active Start: June 07, 2025 Team Status: Inactive Member Role Status Dates [...] 2024 End: November 21, 2024 Janie Amaro NP-C Other Provider Active Sta rt: November 18, 2024 End: November 21, 2024 Alejandra Montenegro APRN-WIRE LOOP MACHINE OPERATOR-C Other Provider Active Start: November 18, 2024 [...] Sta rt: November 18, 2024 Alejandra Montenegro , BROACH GRINDER-WIRE LOOP MACHINE OPERATOR-C Other Provider Active Start: November 18, 2024 Team Status: Active Member Role Status Dates Sulaiman Feldman DO Primary Care Provider Active Start: November 17, 2024 Ragini Carmona , DO Emergency Provider Active St art: November 17, 2024 Chaz Frey MD Admit Provider Active Start: November 17, 2024 Yamila Donald MD Attending Provider Active St art: November 17, 2024 Jaylin Fajardo RN Other Provider Active Star t: November 17, 2024 Wojciech Horowitz MD Other Provider Active Start: J an2024 Julito Mosley MD Other Provider Active Start: [...] Sta rt: November 17, 2024 Alejandra Montenegro , BROACH GRINDER-WIRE LOOP MACHINE OPERATOR-C Other Provider Active Start: November 17, 2024 [...] Karley Nguyen MD Other Provider Active Start: Ju soraida 2023 End: May 06, 2024 Patricio Galaviz MD Other Provider Active Start: J une 2023 End: May 06, 2024 Sofia Kent [...] may be documented in a n alternate sectionGoals may be documented in an alternate section FOR RECORDS PERTAINING TO PATIENTS [...] BE BASED ON THE PRIMARY CLINICAL RECORDS. [facility] [employer] [facility]. provides no warranty or guarantee of the accuracy or completeness of information in this document.
[2025-07-15] MEDS: ENOXAPARIN SODIUM 40 MG/0.4 ML SYRINGE SUBQ (17:40)
--- NOTE | 2025-07-15 17:53 | PC.NURSE ---
unable to complete admission assessment due to post ictal state
[2025-07-15 20:18] LABS: Cannabinoid Screen Urine NEGATIVE (NEGATIVE); Methamphetamines Screen Urine POSITIVE (NEGATIVE); Tricyclic Antidepressant Urine NEGATIVE (NEGATIVE)
[2025-07-15] MEDS: HYDRALAZINE HCL 20 MG/ML VIAL IVP (20:42)
[2025-07-15] MEDS: IPRATROPIUM/ALBUTEROL SULFATE 3 ML AMPUL.NEB IH (22:04)
[2025-07-16] VITALS (8 sets, daily range): BP systolic 175; BP diastolic 89; PULSE 65–76
--- NOTE | 2025-07-16 06:00 | PC.NURSE ---
Nurse only able to obtain BP and pulse for vitals. Pt very hostile and agitated.
--- OUTSIDE RECORDS SUMMARY | 2025-07-16 06:53 | XMS_ITS | Encounter Summary ---
Author Organization [facility] Address [address] [place] [address] Phone Care Team Providers Care Brim Molder Name Role Phone Sulaiman Feldman DO Primary Care Provider [phone] Encounter Details Date Type Department Care Team (Late st Contact Info) Description 06/07/2025 Scanned Document [facility] [address] [place] [id number] Scanning, Generic Provider Social History Tobacco Use [...] on filedocumented in this encounter Care Teams Brim Molder Relationship Specialty Start Date End Date Sulaiman Feldman DO [address] [place] [address] PCP - General 11/29/24 documented as of this encounter
--- OUTSIDE RECORDS SUMMARY | 2025-07-16 06:54 | XMS_ITS | CCD ---
Author Organization [facility] Care Team Providers Care International Marketing Intern Name Role Phone INDURTI, ELIAN V Unavailable [...] Other Provider MD Víctor Agrawal Other Provider [phone] HARVINDER, AHMED B Consulting Unavailable HARVINDER, AHMED B Admitting Unavailable HARVINDER AHMED B Attending Unavailable Sulaiman Feldman DO Primary Care Provider Ragini Carmona DO Emergency Provider [phone] Chaz Frey MD Admit Provider Yamila Donald MD Attending Provider Jaylin Fajardo RN Other Provider Unavailable Wojciech Horowitz MD Other Provider Julito Mosley MD Other Provider Emy Rae MD Other Provider Donna Marcelo Other Provider Unavailable Ubaldo Giles, [place] Other Provider Sivan Francois DO Other Provider Reno Hubbard MD Other Provider Thanh Kenney DO Other Provider Neville Bush DO Other Provider Bella Cano APRN Other Provider Prem TURN LASTER-C, Janie Yates Other Provider Lan PMO CONSULTANT-WATER TREATMENT PLANT ENGINEER-C, Alejandra Pantoja Other Provider Sulaiman Feldman DO [...] Prem TREVIÑO-C, Janie Yates Other Provider Lan PMO CONSULTANT-WATER TREATMENT PLANT ENGINEER-C, Alejandra Pantoja Other Provider NO PCP, NO PCP Primary Care Unavailable FREDERIC, EHAD Consulting Unavailable Sulaiman Feldman DO Primary Care Provider Usman Driver MD Admit Provider Usman Driver MD Other Provider Sciarappa, Donna Other Provider Unavailable Alessandro HARGROVE, Sivan Other Provider Reno Hubbard MD Other Provider Thanh Kenney DO Other Provider Neville Bush DO Other Provider Rachael PMO CONSULTANTBella Tilley Other Provider Lan PMO CONSULTANT-WATER TREATMENT PLANT ENGINEER-C, Alejandra Pantoja Other Provider Ratna Denton APRN Other Provider Raina NELSON, Thanh Pantoja Other Provider Tanja NELSON, Víctor Encarnacion Other Provider Crystal NELSON, Neville Rivas Other Provider Kota [...] Cano Consulting Unavailable Alejandra Montenegro Consulting Unavailable Ratna Denton Unavailable Thanh Paris Consulting Unavaila ble [...] Propensity to adverse reactions to drug (disorder) [facility] Repository (1 source) Codeine; Translations: [...] 11-24-2022 Episodic Other aftercare (1 source) Other oil heaterman (current) drug therapy; Translations: [OTH GROUP HOME CURRENT DRUG THERAPY] Onset: 11-28-2022 Episodic Other [...] Base Excess 0.2 mmol/L Normal -3.0-3.0 [facility] Comment on above: Performed By: #### P RL, HS TROP, CBC, CMP #### [address] ABG Frac Inspired O2 Normal [facility] Comment on above: Performed By: #### P RL, HS TROP, CBC, CMP #### [address] ABG Liter Flow 6L Normal [facility] Comment on above: Performed By: #### P RL, HS TROP, CBC, CMP #### [address] ABG Oxygen Content 9.8 mmol/L High 6.6-9.7 [facility] Comment on above: Performed By: #### P RL, HS TROP, CBC, CMP #### [address] ABG Oxygen Saturation 96.5 % Normal 95.0-100.0 [facility] Comment on above: Performed By: #### P RL, HS TROP, CBC, CMP #### [address] ABG PCO2 41.3 mm[Hg] Normal 35.0-45.0 [facility] Comment on above: Performed By: #### P RL, HS TROP, CBC, CMP #### [address] ABG PH 7.40 Normal 7.35-7.45 [facility] Comment on above: Performed By: #### P RL, HS TROP, CBC, CMP #### [address] ABG PO2 87.8 mm[Hg] Normal 80.0-100.0 [facility] Comment on above: Performed By: #### P RL, HS TROP, CBC, CMP #### [address] CO2 [Moles/Vol] 26.3 mmol/L Normal 23.0-27.0 [facility] Comment on above: Performed By: #### P RL, HS TROP, CBC, CMP #### [address] HCO3 (Bld) [Moles/Vol] 25.0 mmol/L Normal 23.0-29.0 [facility] Comment on above: Performed By: #### P RL, HS TROP, CBC, CMP #### [address] Oxygen Device Nasal Cannula Normal [facility] Comment on above: Performed By: #### P RL, HS TROP, CBC, CMP #### [address] Respiratory Critical Normal [facility] Comment on above: Result Comment: Crit ical Value called on: 06/07/2025 at 13:57 PERFORMED BY: [place] [address] PATHOLOGIST STAIN MAKER CELESTE GERMAN M.D. Performed By: #### P RL, HS TROP, CBC, CMP #### [address] VBG Draw Site Right Radial Normal [facility] Comment on above: Performed By: #### P RL, HS TROP, CBC, CMP #### [address] Complete Blood Count Auto Di ffon 06-07-2025 Basophils (Bld) [#/Vol] 0.0 10*3/uL Normal 0.0-0.2 [facility] Comment on above: Result Comment: PERF ORMED BY: [place] [address] PATHOLOGIST STAIN MAKER CELESTE GERMAN M.D. Performed By: #### P RL, HS TROP, CBC, CMP #### [address] Basophils/100 WBC (Bld) 0.4 % Normal . [facility] Comment on above: Performed By: #### P RL, HS TROP, CBC, CMP #### [address] Eosinophils (Bld) [#/Vol] 0.0 10*3/uL Normal 0.0-0.45 [facility] Comment on above: Performed By: #### P RL, HS TROP, CBC, CMP #### [address] Eosinophils/100 WBC (Bld) 0.1 % Normal . [facility] Comment on above: Performed By: #### P RL, HS TROP, CBC, CMP #### [address] Erythrocyte distribution width (RBC) [Ratio] 15.5 % High 12.0-14.8 [facility] Comment on above: Performed By: #### P RL, HS TROP, CBC, CMP #### [address] Hematocrit (Bld) [Volume fraction] 46.4 % Normal 38.8-50.0 [facility] Comment on above: Performed By: #### P RL, HS TROP, CBC, CMP #### [address] Hemoglobin (Bld) [Mass/Vol] 15.2 g/dL Normal 13.0-17.0 [facility] Comment on above: Performed By: #### P RL, HS TROP, CBC, CMP #### [address] Lymphocytes (Bld) [#/Vol] 0.5 10*3/uL Low 1.00-4.8 [facility] Comment on above: Performed By: #### P RL, HS TROP, CBC, CMP #### [place] [id number] [place] Lymphocytes/100 WBC (Bld) 7.4 % Normal . [facility] Comment on above: Performed By: #### P RL, HS TROP, CBC, CMP #### [address] MCH (RBC) [Entitic mass] 29.6 pg Normal 27.5-35.2 [facility] Comment on above: Performed By: #### P RL, HS TROP, CBC, CMP #### [address] MCV (RBC) [Entitic vol] 90.3 fL Normal 83.5-101 [facility] Comment on above: Performed By: #### P RL, HS TROP, CBC, CMP #### [address] Mean Corpuscular HGB Conc 32.7 g/dL Normal 32.5-35.6 [facility] Comment on above: Performed By: #### P RL, HS TROP, CBC, CMP #### [address] Monocytes (Bld) [#/Vol] 0.2 10*3/uL Normal 0.0-0.8 [facility] Comment on above: Performed By: #### P RL, HS TROP, CBC, CMP #### [address] Monocytes/100 WBC (Bld) 3.3 % Normal . [facility] Comment on above: Performed By: #### P RL, HS TROP, CBC, CMP #### [address] Neutrophils (Bld) [#/Vol] 5.8 10*3/uL Normal 1.8-7.7 [facility] Comment on above: Performed By: #### P RL, HS TROP, CBC, CMP #### [address] Neutrophils/100 WBC (Bld) 88.8 % Normal . [facility] Comment on above: Performed By: #### P RL, HS TROP, CBC, CMP #### [address] NRBC% 0.1 /100{WBC} Normal 0-0.5 [facility] Comment on above: Performed By: #### P RL, HS TROP, CBC, CMP #### [address] Platelet mean volume (Bld) [Entitic vol] 6.7 fL Normal 6.6-10.1 [facility] Comment on above: Performed By: #### P RL, HS TROP, CBC, CMP #### [address] Platelets (Bld) [#/Vol] 225 10*3/uL Normal 150-450 [facility] Comment on above: Performed By: #### P RL, HS TROP, CBC, CMP #### [address] RBC (Bld) [#/Vol] 5.14 10*6/uL Normal 3.90-5.60 [facility] Comment on above: Performed By: #### P RL, HS TROP, CBC, CMP #### [address] WBC (Bld) [#/Vol] 6.6 10*3/uL Normal 4.1-10.5 [facility] Comment on above: Performed By: #### P RL, HS TROP, CBC, CMP #### [address] White Blood Count 6.6 [CFU]/mL Normal 4.1-10.5 [facility] Comment on above: Performed By: #### P RL, HS TROP, CBC, CMP #### [address] Comprehensive Metabolic Pane wilner 06-07-2025 Albumin [Mass/Vol] 4.3 g/dL Normal 3.5-5.7 [facility] Comment on above: Performed By: #### P RL, HS TROP, CBC, CMP #### [address] Albumin/Globulin [Mass ratio] 1.5 {ratio} Normal [facility] Comment on above: Performed By: #### P RL, HS TROP, CBC, CMP #### [facility] [address] ALP [Catalytic activity/Vol] 97 U/L Normal 34-104 [facility] Comment on above: Performed By: #### P RL, HS TROP, CBC, CMP #### [address] ALT [Catalytic activity/Vol] 22 U/L Normal 7-52 [facility] Comment on above: Performed By: #### P RL, HS TROP, CBC, CMP #### [address] Anion gap [Moles/Vol] 9.2 mmol/L Normal 6.0-15.0 [facility] Comment on above: Performed By: #### P RL, HS TROP, CBC, CMP #### [address] AST [Catalytic activity/Vol] 57 U/L High 13-39 [facility] Comment on above: Performed By: #### P RL, HS TROP, CBC, CMP #### [address] Bilirubin [Mass/Vol] 0.8 mg/dL Normal 0.3-1.0 [facility] Comment on above: Performed By: #### P RL, HS TROP, CBC, CMP #### [address] Calcium [Mass/Vol] 9.3 mg/dL Normal 8.6-10.3 [facility] Comment on above: Performed By: #### P RL, HS TROP, CBC, CMP #### [place] [address] [place] Chloride [Moles/Vol] 98 mmol/L Normal 98-107 [facility] Comment on above: Performed By: #### P RL, HS TROP, CBC, CMP #### [address] CO2 [Moles/Vol] 30.8 mmol/L Normal 21.0-31.0 [facility] Comment on above: Performed By: #### P RL, HS TROP, CBC, CMP #### [address] Creatinine [Mass/Vol] 1.39 mg/dL High 0.70-1.30 [facility] Comment on above: Performed By: #### P RL, HS TROP, CBC, CMP #### [address] Creatinine Clr Calc Pharmacy 51.68 Normal [facility] Comment on above: Result Comment: PERF ORMED BY: [place] [address] PATHOLOGIST STAIN MAKER CELESTE GERMAN M.D. Performed By: #### P RL, HS TROP, CBC, CMP #### [address] GFR/1.73 sq M.predicted MDRD (S/P/Bld) [Vol rate/Area] 55.911 mL/min/{1.73_m2} Normal [facility] Comment on above: Performed By: #### P RL, HS TROP, CBC, CMP #### [address] Globulin (S) [Mass/Vol] 2.9 g/dL Normal [facility] Comment on above: Performed By: #### P RL, HS TROP, CBC, CMP #### [address] Glucose [Mass/Vol] 189 mg/dL High 70-100 [facility] Comment on above: Result Comment: [place] Glucose Reference Range is dependent on time and content of last meal. Glucose of more than 200 mg/dL in a nonstressed, ambulatory subject supports the diagnosis of Diabetes Mellitus. ADA recommended reference range Performed By: #### P RL, HS TROP, CBC, CMP #### [place] [address] [place] Potassium [Moles/Vol] 4.0 mmol/L Normal 3.5-5.1 [facility] Comment on above: Performed By: #### P RL, HS TROP, CBC, CMP #### [address] Protein [Mass/Vol] 7.2 g/dL Normal 6.4-8.9 [facility] Comment on above: Performed By: #### P RL, HS TROP, CBC, CMP #### [address] Sodium [Moles/Vol] 134 mmol/L Low 136-145 [facility] Comment on above: Performed By: #### P RL, HS TROP, CBC, CMP #### [address] Urea nitrogen [Mass/Vol] 17 mg/dL Normal 7-25 [facility] Comment on above: Performed By: #### P RL, HS TROP, CBC, CMP #### [address] Drug Screen,Urineon 06-07-20 25 Amphetamine Screen,Urine Positive Normal Negative [facility] Comment on above: Performed By: #### U RDS #### [address] Barbiturate Screen,Urine Negative Normal Negative [facility] Comment on above: Performed By: #### U RDS #### [place] [address] [place] Benzodiazepines Screen,Urine Positive Normal Negative [facility] Comment on above: Performed By: #### U RDS #### [place] [address] [place] Cannabinoid Screen,Urine Positive Normal Negative [facility] Comment on above: Result Comment: Thes e are unconfirmed results and should not be used for legal purposes. Drug Cut-Off Concentration: AMPH 1000 ng/mL BHASKAR 200 ng/mL RIKKI 200 ng/mL COCM 300 ng/mL OP 300 ng/mL PCP 25 ng/mL THC 20 ng/mL PERFORMED BY: [place] [address] PATHOLOGIST STAIN MAKER CELESTE GERMAN M.D. Performed By: #### U RDS #### [address] Cocaine Screen,Urine Negative Normal Negative [facility] Comment on above: Performed By: #### U RDS #### [address] Opiate Screen,Urine Positive Normal Negative [facility] Comment on above: Performed By: #### U RDS #### [address] Phencyclidine Screen,Urine Negative Normal Negative [facility] Comment on above: Performed By: #### U RDS #### [address] ECG 12 lead ECGon 06-07-2025 ECG 12 [place] [address] Electrocardiograph Report Signed Patient: Aaron Olivarez MR#: [id number] 00 : 1960 Acct:[id number] Age/Sex: 64 / M ADM Date: 06/07/25 Loc: Room: [address] [place] [address] Type: DIS IN Attending Dr: Usman Driver [...] abnormality Abnormal ECG Confirmed by Emy Rae ([id number]) on 06/11/2025 1:57:46 PM Referred By: Electronically Signed By: Emy Rae Transcribed By: MUS Signed By Emy Rae MD 5 1357 Normal [facility] ECG 12 lead ECG [address] [place] [address] Electrocardiograph Report Signed Patient: Aaron Olivarez MR#: [id number] 00 : 1960 Acct:[id number] Age/Sex: 64 / M ADM Date: 06/07/25 Loc: Room: [address] [place] [address] Type: ADM IN Attending Dr: Usman Driver [...] injury or acute infarct Prolonged QT ACUTE IL / STEMI Abnormal ECG When compared with [...] Chisholm MD 0 06/07/25 1148 Normal [facility] Glucose Poct Glucometerson 0 06-07-2025 Commemt1 Glu2: Cleaned Meter Normal [facility] Comment on above: Result Comment: PERF ORMED BY: [place] [address] PATHOLOGIST STAIN MAKER CELESTE GERMAN M.D. Performed By: #### G GERI #### Point of Care testing , Glucose [Mass/Vol] 91 mg/dL Normal [facility] Comment on above: Result Comment: [place] Glucose Reference Range is dependent on time and content of last meal. Glucose of more than 200 mg/dL in a nonstressed, ambulatory subject supports the diagnosis of Diabetes Mellitus. Performed By: #### G LULS #### Point of Care testing , Troponin I High Sensitivityo n 06-07-2025 Troponin I High Sensitivity 58565 Off scale high 0-20 [facility] Comment on above: Result Comment: Crit ical Result [id number] Called to and read back by: JANY SANDOVAL at: 06/07/2025 17:28:45 by:[id number] The Troponin units of report have been changed to meet the Chest Pain Accreditation requirement, element EC5.M1l2. Troponin units are changed from pg/ml to ng/L. Also, the decimal is removed and results are in whole numbers. PERFORMED BY: [id number] PATHOLOGIST STAIN MAKER CELESTE GERMAN M.D. Performed By: #### H S TROP #### [address] Troponin I High Sensitivity [address] Off scale high 0-20 [facility] Comment on above: Order Comment: per r n mal[place] wait till they sedate pt Result Comment: Crit ical Result [id number] Called to and read back by: JANY SANDOVAL at: 06/07/2025 15:32:31 by:[id number] The Troponin units of report have been changed to meet the Chest Pain Accreditation requirement, element EC5.M1l2. Troponin units are changed from pg/ml to ng/L. Also, the decimal is removed and results are in whole numbers. PERFORMED BY: [id number] PATHOLOGIST STAIN MAKER CELESTE GERMAN M.D. Performed By: #### P RL, HS TROP, CBC, CMP #### [facility] [address] [place] [address] Troponin I High Sensitivity 6616 Off scale high 0-20 [facility] Comment on above: Order Comment: [...] results are in whole numbers. PERFORMED BY: [place] [address] PATHOLOGIST STAIN MAKER CELESTE GERMAN M.D. Performed By: #### P RL, HS TROP, CBC, CMP #### [address] Basic Metabolic Panelon 01-0 Anion gap [Moles/Vol] 13.2 mmol/L Normal 6.0-15.0 e [facility] Comment on above: Performed By: #### P RL, HS TROP, CBC, CMP #### [address] Calcium [Mass/Vol] 9.7 mg/dL Normal 8.6-10.3 [facility] Comment on above: Performed By: #### P RL, HS TROP, CBC, CMP #### [address] Chloride [Moles/Vol] 105 mmol/L Normal 98-107 [facility] Comment on above: Performed By: #### P RL, HS TROP, CBC, CMP #### [address] CO2 [Moles/Vol] 25.2 mmol/L Normal 21.0-31.0 [facility] Comment on above: Performed By: #### P RL, HS TROP, CBC, CMP #### [address] Creatinine [Mass/Vol] 0.81 mg/dL Normal 0.70-1.30 [facility] Comment on above: Performed By: #### P RL, HS TROP, CBC, CMP #### [address] Creatinine Clr Calc Pharmacy 98.46 Normal [facility] Comment on above: Performed By: #### P RL, HS TROP, CBC, CMP #### [facility] [address] [place] [address] [place] GFR/1.73 sq M.predicted MDRD (S/P/Bld) [Vol rate/Area] mL/min/{1.73_m2} Normal [facility] Comment on above: Performed By: #### P RL, HS TROP, CBC, CMP #### [facility] [address] [place] [address] [place] Glucose [Mass/Vol] 103 mg/dL High 70-100 [facility] Comment on above: Result Comment: [facility] Glucose Reference Range is dependent on time and content of last meal. Glucose of more than 200 mg/dL in a nonstressed, ambulatory subject supports the diagnosis of Diabetes Mellitus. ADA recommended reference range Performed By: #### P RL, HS TROP, CBC, CMP #### [facility] [address] Potassium [Moles/Vol] 3.4 mmol/L Low 3.5-5.1 [facility] Comment on above: Performed By: #### P RL, HS TROP, CBC, CMP #### [facility] [address] [place] [address] [place] Sodium [Moles/Vol] 140 mmol/L Normal 136-145 [facility] Comment on above: Performed By: #### P RL, HS TROP, CBC, CMP #### [facility] [address] [place] [address] [place] Urea nitrogen [Mass/Vol] 19 mg/dL Normal 7-25 [facility] Comment on above: Performed By: #### P RL, HS TROP, CBC, CMP #### [facility] [address] [place] [address] [place] Calcium [Mass/volume] in Ser um or PlasmaOrdered By: Yamila Donald on 11-19-2024 Calcium [Mass/Vol] Calcium [Mass/volume ] in Serum or Plasma 8.6-10.3 [facility] Carbon dioxide, total [Moles /volume] in Serum or PlasmaOrdered By: Yamila Donald on 11-19-2024 CO2 [Moles/Vol] Carbon dioxide, tota l [Moles/volume] in Serum or Plasma 21.0-31.0 [facility] Chloride [Moles/volume] in S andrei or PlasmaOrdered By: Yamila Donald on 11-19-2024 Chloride [Moles/Vol] Chloride [Moles/vol ume] in Serum or Plasma 98-107 [facility] Creatinine [Mass/volume] in Serum or PlasmaOrdered By: Yamila Donald on 11-19-2024 Creatinine [Mass/Vol] Creatinine [Mass/v olume] in Serum or Plasma 0.70-1.30 [facility] Erythrocyte distribution wid th Auto (RBC) [Ratio]Ordered By: Yamila Donald on 11-19-2024 Erythrocyte distribution width (RBC) [Ratio] Erythrocyte distribution width [Ratio] by Automated count 12.0-14.8 [facility] Glucose [Mass/volume] in Ser um or PlasmaOrdered By: Yamila Donald on 11-19-2024 Glucose [Mass/Vol] Glucose [Mass/volume ] in Serum or Plasma High 70-100 [facility] Comment on above: ADA recommended refe rence rangeRandom Glucose Reference Range is dependent on time and content of last meal. Glucose of more than 200 mg/dL in a nonstressed, ambulatory subject supports the diagnosis of Diabetes Mellitus. Hematocrit Auto (Bld) [Volum e fraction]Ordered By: Yamila Donald on 11-19-2024 Hematocrit (Bld) [Volume fraction] Hematocrit [Volume Fraction] of Blood by Automated count 38.8-50.0 [facility] Hemoglobin [Mass/volume] in BloodOrdered By: Yamila Donald on 11-19-2024 Hemoglobin (Bld) [Mass/Vol] Hemoglobin [Mass/volume] in Blood 13.0-17.0 [facility] Hemogram CBC Without Diffon 11-19-2024 Erythrocyte distribution width (RBC) [Ratio] 13.7 % Normal 12.0-14.8 [facility] Comment on above: Performed By: #### P RL, HS TROP, CBC, CMP #### [facility] [address] Hematocrit (Bld) [Volume fraction] 45.8 % Normal 38.8-50.0 [facility] Comment on above: Performed By: #### P RL, HS TROP, CBC, CMP #### [address] Hemoglobin (Bld) [Mass/Vol] 15.4 g/dL Normal 13.0-17.0 [facility] Comment on above: Performed By: #### P RL, HS TROP, CBC, CMP #### [address] MCH (RBC) [Entitic mass] 29.0 pg Normal 27.5-35.2 [facility] Comment on above: Performed By: #### P RL, HS TROP, CBC, CMP #### [address] MCV (RBC) [Entitic vol] 86.4 fL Normal 83.5-101 [facility] Comment on above: Performed By: #### P RL, HS TROP, CBC, CMP #### [address] Mean Corpuscular HGB Conc 33.5 g/dL Normal 32.5-35.6 [facility] Comment on above: Performed By: #### P RL, HS TROP, CBC, CMP #### [address] Platelet mean volume (Bld) [Entitic vol] 7.9 fL Normal 6.6-10.1 [facility] Comment on above: Result Comment: PERF ORMED BY: [place] [address] PATHOLOGIST STAIN MAKER VÍCTOR LUCERO M.D. Performed By: #### P RL, HS TROP, CBC, CMP #### [address] Platelets (Bld) [#/Vol] 203 10*3/uL Normal 150-450 [facility] Comment on above: Performed By: #### P RL, HS TROP, CBC, CMP #### [address] [address] [place] RBC (Bld) [#/Vol] 5.31 10*6/uL Normal 3.90-5.60 [facility] Comment on above: Performed By: #### P RL, HS TROP, CBC, CMP #### [facility] [address] WBC (Bld) [#/Vol] 8.2 10*3/uL Normal 4.1-10.5 [facility] Comment on above: Performed By: #### P RL, HS TROP, CBC, CMP #### [facility] [address] Leukocytes [#/volume] correc srinivas for nucleated erythrocytes in Blood by Automated counOrdered By: Yamila Donald on 11-19-2024 WBC corrected for nucl RBC Auto (Bld) [#/Vol] Leukocytes [#/volume] corrected for nucleated erythrocytes in Blood by Automated coun 4.1-10.5 [facility] MCH Auto (RBC) [Entitic mass ]Ordered By: Yamila Donald on 11-19-2024 MCH (RBC) [Entitic mass] MCH [Entitic mass] by Automated count 27.5-35.2 [facility] MCHC Auto (RBC) [Mass/Vol]Or dered By: Yamila Donald on 11-19-2024 MCHC (RBC) [Mass/Vol] MCHC [Mass/volume] by Automated count 32.5-35.6 [facility] MCV Auto (RBC) [Entitic vol] Ordered By: Yamila Donald on 11-19-2024 MCV (RBC) [Entitic vol] MCV [Entitic volume] by Automated count 83.5-101 [facility] MR head/brain wo conon 11-19 MR head/brain wo con [facility] [place] [address] MRI Report Signed Patient: Aaron Olivarez MR#: [id number] 00 : 1960 Acct:[id number] Age/Sex: 64 / M ADM Date: 11/18/24 Loc: Room: [address] [place] [address] Type: ADM IN Attending Dr: Yamila Donald [...] Regino Mckinley M.D.11/19/2024 4:50 PM Dictation Location: [place] [address] Transcribed By: [facility] 11/19/24 1650 Dictated By: Regino Mckinley MD 11/19/24 1644 Signed By: 11/19/24 1650 Normal [facility] Magnesiumon 11-19-2024 Magnesium [Mass/Vol] 1.7 mg/dL Low 1.9-2.7 [facility] Comment on above: Result Comment: PERF ORMED BY: [place] [address] PATHOLOGIST STAIN MAKER VÍCTOR LUCERO M.D. Performed By: #### P RL, HS TROP, CBC, CMP #### [address] Magnesium [Mass/volume] in S andrei or PlasmaOrdered By: Yamila Donald on 11-19-2024 Magnesium [Mass/Vol] Magnesium [Mass/vol ume] in Serum or Plasma Low 1.9-2.7 [facility] Magnetic resonance imaging r eportOrdered By: Regino Mckinley on 11-19-2024 Study report [facility] [place] [address] MRI Report Signed Patient: Aaron Olivarez MR#: [id number] : 1960 Acct:[id number] Age/Sex: 64 / M ADM Date: 5 Loc: Room: [address] [place] [address] Type: ADM IN Attending Dr: Yamila Donald [...] Regino Mckinley M.D.11/19/2024 4:50 PM Dictation Location: [place] [address] Transcribed By: YNES 11/19/241649 Dictated By: Regino Mckinley MD 11/19/241643 Signed By: 11/19/241649 [facility] Work Phone: No Panel InformationOrdered By: Yamila Donald on 11-19-2024 Estimated GFR (CKD-EPI) > 60.0 mL/Min [facility] Creatinine Clearance (Chem 98.46 [facility] Platelet mean volume Auto (B ld) [Entitic vol]Ordered By: Yamila Donald on 11-19-2024 Platelet mean volume (Bld) [Entitic vol] Platelet mean volume [Entitic volume] in Blood by Automated count 6.6-10.1 [facility] Platelets Auto (Bld) [#/Vol] Ordered By: Yamila Donald on 11-19-2024 Platelets (Bld) [#/Vol] Platelets [#/volume] in Blood by Automated count 150-450 [facility] Potassium [Moles/volume] in Serum or PlasmaOrdered By: Yamila Donald on 11-19-2024 Potassium [Moles/Vol] Potassium [Moles/v olume] in Serum or Plasma Low 3.5-5.1 [facility] RBC Auto (Bld) [#/Vol]Ordere d By: Yamila Donald on 11-19-2024 RBC (Bld) [#/Vol] Erythrocytes [#/volu me] in Blood by Automated count 3.90-5.60 [facility] Serum or plasma anion gap de terminationOrdered By: Yamila Donald on 11-19-2024 Anion gap [Moles/Vol] Serum or plasma an ion gap determination 6.0-15.0 [facility] Sodium [Moles/volume] in Ser um or PlasmaOrdered By: Yamila Donald on 11-19-2024 Sodium [Moles/Vol] Sodium [Moles/volume ] in Serum or Plasma 136-145 [facility] Urea nitrogen [Mass/volume] in Serum or PlasmaOrdered By: Yamila Donald on 11-19-2024 Urea nitrogen [Mass/Vol] Urea nitrogen [Mass/volume] in Serum or Plasma 7-25 [facility] Alanine aminotransferase [En zymatic activity/volume] in Serum or PlasmaOrdered By: Chaz Frey on 11-18-2024 ALT [Catalytic activity/Vol] Alanine aminotransferase [Enzymatic activity/volume] in Serum or Plasma 7-52 [facility] Albumin [Mass/volume] in Ser um or Plasma by Bromocresol green (BCG) dye binding methoOrdered By: Chaz Frey on 11-18-2024 Albumin BCG dye [Mass/Vol] Albumin [Mass/volume] in Serum or Plasma by Bromocresol green (BCG) dye binding metho 3.5-5.7 [facility] Alkaline phosphatase [Enzyma tic activity/volume] in Serum or PlasmaOrdered By: Chaz Frey on 11-18-2024 ALP [Catalytic activity/Vol] Alkaline phosphatase [Enzymatic activity/volume] in Serum or Plasma 34-104 [facility] Aspartate aminotransferase [ Enzymatic activity/volume] in Serum or PlasmaOrdered By: Chaz Frey on 11-18-2024 AST [Catalytic activity/Vol] Aspartate aminotransferase [Enzymatic activity/volume] in Serum or Plasma 13-39 [facility] Basophils Auto (Bld) [#/Vol] Ordered By: Chaz Frey on 11-18-2024 Basophils (Bld) [#/Vol] Automated basophil count 0.0-0.2 [facility] Basophils/100 WBC Auto (Bld) Ordered By: Chaz Frey on 11-18-2024 Basophils/100 WBC (Bld) Automated basophil % . [facility] Bilirubin.total [Mass/volume ] in Serum or PlasmaOrdered By: Chaz Frey on 11-18-2024 Bilirubin [Mass/Vol] Bilirubin.total [Mass/volume] in Serum or Plasma High 0.3-1.0 [facility] Calcium [Mass/volume] in Ser um or PlasmaOrdered By: Chaz Frey on 11-18-2024 Calcium [Mass/Vol] Calcium [Mass/volume ] in Serum or Plasma 8.6-10.3 [facility] Carbon dioxide, total [Moles /volume] in Serum or PlasmaOrdered By: Chaz Frey on 11-18-2024 CO2 [Moles/Vol] Carbon dioxide, tota l [Moles/volume] in Serum or Plasma High 21.0-31.0 [facility] Chloride [Moles/volume] in S andrei or PlasmaOrdered By: Chaz Frey on 11-18-2024 Chloride [Moles/Vol] Chloride [Moles/vol ume] in Serum or Plasma 98-107 [facility] Complete Blood Count Auto Di ffon 11-18-2024 Basophils (Bld) [#/Vol] 0.0 10*3/uL Normal 0.0-0.2 [facility] Comment on above: Result Comment: PERF ORMED BY: [place] [address] PATHOLOGIST STAIN MAKER VÍCTOR LUCERO M.D. Performed By: #### P RL, HS TROP, CBC, CMP #### [address] Basophils/100 WBC (Bld) 0.6 % Normal . [facility] Comment on above: Performed By: #### P RL, HS TROP, CBC, CMP #### [address] Eosinophils (Bld) [#/Vol] 0.0 10*3/uL Normal 0.0-0.45 [facility] Comment on above: Performed By: #### P RL, HS TROP, CBC, CMP #### [address] Eosinophils/100 WBC (Bld) 0.1 % Normal . [facility] Comment on above: Performed By: #### P RL, HS TROP, CBC, CMP #### [address] Erythrocyte distribution width (RBC) [Ratio] 13.3 % Normal 12.0-14.8 [facility] Comment on above: Performed By: #### P RL, HS TROP, CBC, CMP #### [address] Hematocrit (Bld) [Volume fraction] 43.0 % Normal 38.8-50.0 [facility] Comment on above: Performed By: #### P RL, HS TROP, CBC, CMP #### [address] Hemoglobin (Bld) [Mass/Vol] 14.6 g/dL Normal 13.0-17.0 [facility] Comment on above: Performed By: #### P RL, HS TROP, CBC, CMP #### [address] Lymphocytes (Bld) [#/Vol] 1.4 10*3/uL Normal 1.00-4.8 [facility] Comment on above: Performed By: #### P RL, HS TROP, CBC, CMP #### [address] Lymphocytes/100 WBC (Bld) 20.9 % Normal . [facility] Comment on above: Performed By: #### P RL, HS TROP, CBC, CMP #### [address] MCH (RBC) [Entitic mass] 29.1 pg Normal 27.5-35.2 [facility] Comment on above: Performed By: #### P RL, HS TROP, CBC, CMP #### [address] MCV (RBC) [Entitic vol] 85.8 fL Normal 83.5-101 [facility] Comment on above: Performed By: #### P RL, HS TROP, CBC, CMP #### [address] Mean Corpuscular HGB Conc 33.9 g/dL Normal 32.5-35.6 [facility] Comment on above: Performed By: #### P RL, HS TROP, CBC, CMP #### [address] Monocytes (Bld) [#/Vol] 0.6 10*3/uL Normal 0.0-0.8 [facility] Comment on above: Performed By: #### P RL, HS TROP, CBC, CMP #### [place] [address] [place] Monocytes/100 WBC (Bld) 8.5 % Normal . [facility] Comment on above: Performed By: #### P RL, HS TROP, CBC, CMP #### [address] Neutrophils (Bld) [#/Vol] 4.7 10*3/uL Normal 1.8-7.7 [facility] Comment on above: Performed By: #### P RL, HS TROP, CBC, CMP #### [place] [address] [place] Neutrophils/100 WBC (Bld) 69.9 % Normal . [facility] Comment on above: Performed By: #### P RL, HS TROP, CBC, CMP #### [place] [address] [place] NRBC% 0.1 /100{WBC} Normal 0-0.5 [facility] Comment on above: Performed By: #### P RL, HS TROP, CBC, CMP #### [place] [address] [place] Platelet mean volume (Bld) [Entitic vol] 7.6 fL Normal 6.6-10.1 [facility] Comment on above: Performed By: #### P RL, HS TROP, CBC, CMP #### [place] [address] [place] Platelets (Bld) [#/Vol] 216 10*3/uL Normal 150-450 [facility] Comment on above: Performed By: #### P RL, HS TROP, CBC, CMP #### [place] [address] [place] RBC (Bld) [#/Vol] 5.01 10*6/uL Normal 3.90-5.60 [facility] Comment on above: Performed By: #### P RL, HS TROP, CBC, CMP #### [place] [address] [place] WBC (Bld) [#/Vol] 6.7 10*3/uL Normal 4.1-10.5 [facility] Comment on above: Performed By: #### P RL, HS TROP, CBC, CMP #### [address] Comprehensive Metabolic Pane wilner 11-18-2024 Albumin [Mass/Vol] 3.9 g/dL Normal 3.5-5.7 [facility] Comment on above: Performed By: #### P RL, HS TROP, CBC, CMP #### [address] Albumin/Globulin [Mass ratio] 1.6 {ratio} Normal [facility] Comment on above: Performed By: #### P RL, HS TROP, CBC, CMP #### [address] ALP [Catalytic activity/Vol] 93 U/L Normal 34-104 [facility] Comment on above: Performed By: #### P RL, HS TROP, CBC, CMP #### [address] ALT [Catalytic activity/Vol] 10 U/L Normal 7-52 [facility] Comment on above: Performed By: #### P RL, HS TROP, CBC, CMP #### [address] Anion gap [Moles/Vol] 9.7 mmol/L Normal 6.0-15.0 [facility] Comment on above: Performed By: #### P RL, HS TROP, CBC, CMP #### [address] AST [Catalytic activity/Vol] 16 U/L Normal 13-39 [facility] Comment on above: Performed By: #### P RL, HS TROP, CBC, CMP #### [address] Bilirubin [Mass/Vol] 1.2 mg/dL High 0.3-1.0 [facility] Comment on above: Performed By: #### P RL, HS TROP, CBC, CMP #### [facility] [address] Calcium [Mass/Vol] 9.4 mg/dL Normal 8.6-10.3 [facility] Comment on above: Performed By: #### P RL, HS TROP, CBC, CMP #### [facility] [address] Chloride [Moles/Vol] 105 mmol/L Normal 98-107 [facility] Comment on above: Performed By: #### P RL, HS TROP, CBC, CMP #### [address] CO2 [Moles/Vol] 31.4 mmol/L High 21.0-31.0 [facility] Comment on above: Performed By: #### P RL, HS TROP, CBC, CMP #### [place] [address] [place] Creatinine [Mass/Vol] 1.10 mg/dL Normal 0.70-1.30 [facility] Comment on above: Performed By: #### P RL, HS TROP, CBC, CMP #### [place] [address] [place] Creatinine Clr Calc Pharmacy 72.51 Normal [facility] Comment on above: Performed By: #### P RL, HS TROP, CBC, CMP #### [place] [address] [place] GFR/1.73 sq M.predicted MDRD (S/P/Bld) [Vol rate/Area] mL/min/{1.73_m2} Normal [facility] Comment on above: Performed By: #### P RL, HS TROP, CBC, CMP #### [place] [address] [place] Globulin (S) [Mass/Vol] 2.4 g/dL Normal [facility] Comment on above: Performed By: #### P RL, HS TROP, CBC, CMP #### [facility] [address] [place] [address] [place] Glucose [Mass/Vol] 113 mg/dL High 70-100 [facility] Comment on above: Result Comment: [place] om Glucose Reference Range is dependent on time and content of last meal. Glucose of more than 200 mg/dL in a nonstressed, ambulatory subject supports the diagnosis of Diabetes Mellitus. ADA recommended reference range Performed By: #### P RL, HS TROP, CBC, CMP #### [facility] [address] Potassium [Moles/Vol] 4.1 mmol/L Normal 3.5-5.1 [facility] Comment on above: Performed By: #### P RL, HS TROP, CBC, CMP #### [facility] [address] [place] [address] [place] Protein [Mass/Vol] 6.3 g/dL Low 6.4-8.9 [facility] Comment on above: Performed By: #### P RL, HS TROP, CBC, CMP #### [facility] [address] [place] [address] [place] Sodium [Moles/Vol] 142 mmol/L Normal 136-145 [facility] Comment on above: Performed By: #### P RL, HS TROP, CBC, CMP #### [facility] [address] [place] [id number] [place] Urea nitrogen [Mass/Vol] 22 mg/dL Normal 7-25 [facility] Comment on above: Performed By: #### P RL, HS TROP, CBC, CMP #### [facility] [address] [place] [id number] [facility] Creatinine [Mass/volume] in Serum or PlasmaOrdered By: Chaz Frey on 11-18-2024 Creatinine [Mass/Vol] Creatinine [Mass/v olume] in Serum or Plasma 0.70-1.30 [facility] E[facility] echo transthoracicon [facility] echo transthoracic [facility] [place] [address] Echocardiogram Signed Patient: Aaron Olivarez MR#: [id number] 00 : 1960 Acct:[id number] Age/Sex: 64 / M ADM Date: 11/18/24 Loc: Room: [address] [place] [address] Type: ADM IN Attending Dr: Yamila Donald MD Ordering Provider: Chaz Frey MD Date of Service: 11/17/2404/06/1256 [facility] echo transthoracic: TIA Copies to: [...] Joan Chisholm MD 11/18/24 1643 Normal [facility] Eosinophils Auto (Bld) [#/Vo l]Ordered By: Chaz Frey on 11-18-2024 Eosinophils (Bld) [#/Vol] Automated eosinophil count 0.0-0.45 [facility] Eosinophils/100 WBC Auto (Bl d)Ordered By: Chaz Frey on 11-18-2024 Eosinophils/100 WBC (Bld) Automated eosinophil % . [facility] Erythrocyte distribution wid th Auto (RBC) [Ratio]Ordered By: Chaz Frey on 11-18-2024 Erythrocyte distribution width (RBC) [Ratio] Erythrocyte distribution width [Ratio] by Automated count 12.0-14.8 [facility] Globulin Calc (S) [Mass/Vol] Ordered By: Chaz Frey on 11-18-2024 Globulin (S) [Mass/Vol] Serum globulin measurement by calculation (mass/volume) [facility] Glucose [Mass/volume] in Ser um or PlasmaOrdered By: Chaz Frey on 11-18-2024 Glucose [Mass/Vol] Glucose [Mass/volume ] in Serum or Plasma High 70-100 [facility] Comment on above: ADA recommended refe rence rangeRandom Glucose Reference Range is dependent on time and content of last meal. Glucose of more than 200 mg/dL in a nonstressed, ambulatory subject supports the diagnosis of Diabetes Mellitus. Hematocrit Auto (Bld) [Volum e fraction]Ordered By: Chaz Frey on 11-18-2024 Hematocrit (Bld) [Volume fraction] Hematocrit [Volume Fraction] of Blood by Automated count 38.8-50.0 [facility] Hemoglobin [Mass/volume] in BloodOrdered By: Chaz Frey on 11-18-2024 Hemoglobin (Bld) [Mass/Vol] Hemoglobin [Mass/volume] in Blood 13.0-17.0 [facility] Leukocytes [#/volume] correc srinivas for nucleated erythrocytes in Blood by Automated counOrdered By: Chaz Frey on 11-18-2024 WBC corrected for nucl RBC Auto (Bld) [#/Vol] Leukocytes [#/volume] corrected for nucleated erythrocytes in Blood by Automated coun 4.1-10.5 [facility] Lymphocytes Auto (Bld) [#/Vo l]Ordered By: Chaz Frey on 11-18-2024 Lymphocytes (Bld) [#/Vol] Lymphocytes [#/volume] in Blood by Automated count 1.00-4.8 [facility] Lymphocytes/100 WBC Auto (Bl d)Ordered By: Chaz Frey on 11-18-2024 Lymphocytes/100 WBC (Bld) Lymphocytes/100 leukocytes in Blood by Automated count . [facility] MCH Auto (RBC) [Entitic mass ]Ordered By: Chaz Frey on 11-18-2024 MCH (RBC) [Entitic mass] MCH [Entitic mass] by Automated count 27.5-35.2 [facility] MCHC Auto (RBC) [Mass/Vol]Or dered By: Chaz Frey on 11-18-2024 MCHC (RBC) [Mass/Vol] MCHC [Mass/volume] by Automated count 32.5-35.6 [facility] MCV Auto (RBC) [Entitic vol] Ordered By: Chaz Frey on 11-18-2024 MCV (RBC) [Entitic vol] MCV [Entitic volume] by Automated count 83.5-101 [facility] Monocytes Auto (Bld) [#/Vol] Ordered By: Chaz Frey on 11-18-2024 Monocytes (Bld) [#/Vol] Automated blood monocyte count 0.0-0.8 [facility] Monocytes/100 WBC Auto (Bld) Ordered By: Chaz Frey on 11-18-2024 Monocytes/100 WBC (Bld) Automated monocyte % . [facility] Neutrophils Auto (Bld) [#/Vo l]Ordered By: Chaz Frey on 11-18-2024 Neutrophils (Bld) [#/Vol] Neutrophils [#/volume] in Blood by Automated count 1.8-7.7 [facility] Neutrophils/100 WBC Auto (Bl d)Ordered By: Chaz Frey on 11-18-2024 Neutrophils/100 WBC (Bld) Automated neutrophil % . [facility] No Panel InformationOrdered By: Chaz Frey on 11-18-2024 Estimated GFR (CKD-EPI) > 60.0 mL/Min [facility] Creatinine Clearance (Chem 72.51 [facility] Nucleated erythrocytes [Pres ence] in Blood by Automated countOrdered By: Chaz Frey on 11-18-2024 Nucleated RBC Auto Ql (Bld) Nucleated erythrocytes [Presence] in Blood by Automated count 0-0.5 [facility] Platelet mean volume Auto (B ld) [Entitic vol]Ordered By: Chaz Frey on 11-18-2024 Platelet mean volume (Bld) [Entitic vol] Platelet mean volume [Entitic volume] in Blood by Automated count 6.6-10.1 [facility] Platelets Auto (Bld) [#/Vol] Ordered By: Chaz Palafox on 11-18-2024 Platelets (Bld) [#/Vol] Platelets [#/volume] in Blood by Automated count 150-450 [facility] Potassium [Moles/volume] in Serum or PlasmaOrdered By: Chaz Frey on 11-18-2024 Potassium [Moles/Vol] Potassium [Moles/v olume] in Serum or Plasma 3.5-5.1 [facility] Prolactinon 11-18-2024 Prolactin 16.14 ng/mL High 2.64-13.13 [facility] Comment on above: Result Comment: PERF ORMED BY: [place] [address] PATHOLOGIST STAIN MAKER VÍCTOR LUCERO M.D. Performed By: #### P RL, HS TROP, CBC, CMP #### [address] Prolactin [Mass/volume] in S andrei or PlasmaOrdered By: Chaz Frey on 11-18-2024 Prolactin [Mass/Vol] Prolactin [Mass/vol ume] in Serum or Plasma High 2.64-13.13 [facility] Protein [Mass/volume] in Ser um or PlasmaOrdered By: Chaz Frey on 11-18-2024 Protein [Mass/Vol] Protein [Mass/volume ] in Serum or Plasma Low 6.4-8.9 [facility] RBC Auto (Bld) [#/Vol]Ordere d By: Chaz Frey on 11-18-2024 RBC (Bld) [#/Vol] Erythrocytes [#/volu me] in Blood by Automated count 3.90-5.60 [facility] Serum or plasma albumin/glob ulin mass ratioOrdered By: Chaz Frey on 11-18-2024 Albumin/Globulin [Mass ratio] Serum or plasma albumin/globulin mass ratio [facility] Serum or plasma anion gap de terminationOrdered By: Chaz Frey on 11-18-2024 Anion gap [Moles/Vol] Serum or plasma an ion gap determination 6.0-15.0 [facility] Sodium [Moles/volume] in Ser um or PlasmaOrdered By: Chaz Frey on 11-18-2024 Sodium [Moles/Vol] Sodium [Moles/volume ] in Serum or Plasma 136-145 [facility] Troponin I High Sensitivityo n 11-18-2024 Troponin I High Sensitivity 26.6 pg/mL High 0.0-20.0 [facility] Comment on above: Result Comment: PERF ORMED BY: [place] [address] PATHOLOGIST STAIN MAKER VÍCTOR LUCERO M.D. Performed By: #### P RL, HS TROP, CBC, CMP #### [facility] [address] [place] [address] Troponin I.cardiac [Mass/vol ume] in Serum or Plasma by Detection limit <= 0.01 ng/Ordered By: Chaz Frey on 11-18-2024 Troponin I.cardiac DL <= 0.01 ng/mL [Mass/Vol] Troponin I.cardiac [Mass/volume] in Serum or Plasma by Detection limit <= 0.01 ng/ High 0.0-20.0 [facility] Urea nitrogen [Mass/volume] in Serum or PlasmaOrdered By: Chaz Frey on 11-18-2024 Urea nitrogen [Mass/Vol] Urea nitrogen [Mass/volume] in Serum or Plasma 7-25 [facility] WBC Auto (Bld) [#/Vol]Ordere d By: Chaz Frey on 11-18-2024 WBC (Bld) [#/Vol] Leukocytes [#/volume ] in Blood by Automated count 4.1-10.5 [facility] Amphetamine Screen Ql (U)Ord ered By: Ragini Carmona on 11-17-2024 Amphetamines Ql (U) Amphetamines screen High Negativ e [facility] Amphetamine cutoff [Mass/vol ume] in Urine for Confirmatory methodOrdered By: Chaz Frey on 11-17-2024 Amphetamine cutoff Confirm (U) [Mass/Vol] Amphetamine cutoff [Mass/volume] in Urine for Confirmatory method [id number]=269 [facility] Amphetamine+Methamphetamine [Presence] in UrineOrdered By: Chaz Frey on 11-17-2024 Amphetamine+Methamphe tamine Ql (U) Amphetamine+Methamphetamine [Presence] in Urine Abnormal Vdfqaz=[address] [facility] Comment on above: Amphetamine test inc ludes Amphetamine and Methamphetamine. Amphetamines [Presence] in U rineOrdered By: Chaz Frey on 11-17-2024 Amphetamines Ql (U) Amphetamines [Presen ce] in Urine Abnormal . [facility] Amphetamines [Presence] in U rine by Screen methodOrdered By: Chaz Frey on 11-17-2024 Amphetamines Screen Ql (U) Amphetamines [Presence] in Urine by Screen method Uduows=[address] [facility] Comment on above: Amphetamine test inc ludes Amphetamine and Methamphetamine. Appearance of UrineOrdered B y: Ragini Carmona on 11-17-2024 Appearance (U) Urine appearance Clear [facility] Bacteria [Presence] in Urine by AutomatedOrdered By: Ragini Carmona on 11-17-2024 Bacteria Auto Ql (U) Bacteria [Presence] in Urine by Automated None Seen [facility] Barbiturates [Presence] in U rine by Screen methodOrdered By: Ragini Carmona on 11-17-2024 Barbiturates Screen Ql (U) Barbiturates [Presence] in Urine by Screen method [id number] [facility] Benzodiazepines Screen Ql (U )Ordered By: Ragini Carmona on 11-17-2024 Benzodiazepines Ql (U) Benzodiazepines [Presence] in Urine by Screen method High Negative [facility] Benzodiazepines [Presence] i n UrineOrdered By: Chaz Frey on 11-17-2024 Benzodiazepines Ql (U) Benzodiazepines [Presence] in Urine Picpuv=121 [facility] Benzoylecgonine [Presence] i n Urine by Screen methodOrdered By: Ragini Carmona on 11-17-2024 Benzoylecgonine Screen Ql (U) Benzoylecgonine [Presence] in Urine by Screen method Negative [facility] Bilirubin Test strip Ql (U)O rdered By: Ragini Carmona on 11-17-2024 Bilirubin Ql (U) Bilirubin.total [Pre sence] in Urine by Test strip Negative [facility] CT angio neckon 11-17-2024 CT angio neck [facility] [place] [address] CT Scan Report Signed Patient: Aaron Olivarez MR#: [id number] 00 : 1960 Acct:[id number] Age/Sex: 64 / M ADM Date: 11/17/24 Loc: ER Room: Type: PRE ER Attending Dr: Copies to: Ragini Carmona DO Ordering Provider: Ragini Carmona DO Date of Service: 11/17/24 CT/CT angio head: cva ([id number]) CT/CT angio neck: cva CT angio head, [...] Dung Chakraborty M.D.11/17/2024 8:59 AM Dictation Location: [place] [address] Transcribed By: [facility] 11/17/24 0859 Dictated By: Dung Chakraborty II, MD 11/17/24 0852 Signed By: 11/17/24 0859 Normal [facility] CT head stroke alert wo cono n 11-17-2024 CT head stroke alert wo con [facility] [place] [address] CT Scan Report Signed Patient: Aaron Olivarez MR#: [id number] 00 : 1960 Acct:[id number] Age/Sex: 64 / M ADM Date: 11/17/24 [...] Dung Chakraborty M.D.11/17/2024 8:43 AM Dictation Location: [place] [address] Transcribed By: YNES 11/17/24 0843 Dictated By: Dung Chakraborty II, MD 11/17/24 0837 Signed By: 11/17/2443 Normal [facility] Cannabinoids [Mass/volume] i n Urine by Confirmatory methodOrdered By: Chaz Frey on 11-17-2024 Cannabinoids Confirm (U) [Mass/Vol] Cannabinoids [Mass/volume] in Urine by Confirmatory method Cutoff=50 [facility] Cannabinoids [Presence] in U rine by Screen methodOrdered By: Ragini Carmona on 11-17-2024 Cannabinoids Screen Ql (U) Cannabinoids [Presence] in Urine by Screen method Cutoff=50 [facility] Comment on above: These are unconfirme d results and should not be used for legal purposes. Drug Cut-Off Concentration: AMPH 1000 ng/mL BHASKAR 200 ng/mL RIKKI 200 ng/mL COCM 300 ng/mL OP 300 ng/mL PCP 25 ng/mL THC 20 ng/mL Color Auto (U)Ordered By: Natalie Carmona on 11-17-2024 Color (U) Color of Urine by Auto Yellow Fi [facility] Complete Blood Count Auto Di ffon 11-17-2024 Basophils (Bld) [#/Vol] 0.0 10*3/uL Normal 0.0-0.2 [facility] Comment on above: Result Comment: PERF ORMED BY: [place] [address] PATHOLOGIST STAIN MAKER VÍCTOR LUCERO M.D. Performed By: #### P RL, HS TROP, CBC, CMP #### [address] Basophils/100 WBC (Bld) 0.4 % Normal . [facility] Comment on above: Performed By: #### P RL, HS TROP, CBC, CMP #### [address] Eosinophils (Bld) [#/Vol] 0.0 10*3/uL Normal 0.0-0.45 [facility] Comment on above: Performed By: #### P RL, HS TROP, CBC, CMP #### [address] Eosinophils/100 WBC (Bld) 0.1 % Normal . [facility] Comment on above: Performed By: #### P RL, HS TROP, CBC, CMP #### [address] Erythrocyte distribution width (RBC) [Ratio] 13.6 % Normal 12.0-14.8 [facility] Comment on above: Performed By: #### P RL, HS TROP, CBC, CMP #### [address] Hematocrit (Bld) [Volume fraction] 46.4 % Normal 38.8-50.0 [facility] Comment on above: Performed By: #### P RL, HS TROP, CBC, CMP #### [address] Hemoglobin (Bld) [Mass/Vol] 15.6 g/dL Normal 13.0-17.0 [facility] Comment on above: Performed By: #### P RL, HS TROP, CBC, CMP #### [address] Lymphocytes (Bld) [#/Vol] 0.4 10*3/uL Low 1.00-4.8 [facility] Comment on above: Performed By: #### P RL, HS TROP, CBC, CMP #### [address] Lymphocytes/100 WBC (Bld) 4.4 % Normal . [facility] Comment on above: Performed By: #### P RL, HS TROP, CBC, CMP #### [address] MCH (RBC) [Entitic mass] 28.8 pg Normal 27.5-35.2 [facility] Comment on above: Performed By: #### P RL, HS TROP, CBC, CMP #### [address] MCV (RBC) [Entitic vol] 85.6 fL Normal 83.5-101 [facility] Comment on above: Performed By: #### P RL, HS TROP, CBC, CMP #### [address] Mean Corpuscular HGB Conc 33.6 g/dL Normal 32.5-35.6 [facility] Comment on above: Performed By: #### P RL, HS TROP, CBC, CMP #### [address] Monocytes (Bld) [#/Vol] 0.3 10*3/uL Normal 0.0-0.8 [facility] Comment on above: Performed By: #### P RL, HS TROP, CBC, CMP #### [address] Monocytes/100 WBC (Bld) 15.39 % Normal 0.00-20.00 [facility] Comment on above: Performed By: #### P RL, HS TROP, CBC, CMP #### [place] [address] [place] Monocytes/100 WBC (Bld) 3.3 % Normal . [facility] Comment on above: Performed By: #### P RL, HS TROP, CBC, CMP #### [address] Neutrophils (Bld) [#/Vol] 9.2 10*3/uL High 1.8-7.7 [facility] Comment on above: Performed By: #### P RL, HS TROP, CBC, CMP #### [address] Neutrophils/100 WBC (Bld) 91.8 % Normal . [facility] Comment on above: Performed By: #### P RL, HS TROP, CBC, CMP #### [address] NRBC% 0.1 /100{WBC} Normal 0-0.5 [facility] Comment on above: Performed By: #### P RL, HS TROP, CBC, CMP #### [address] Platelet mean volume (Bld) [Entitic vol] 7.3 fL Normal 6.6-10.1 [facility] Comment on above: Performed By: #### P RL, HS TROP, CBC, CMP #### [place] [address] [place] Platelets (Bld) [#/Vol] 280 10*3/uL Normal 150-450 [facility] Comment on above: Performed By: #### P RL, HS TROP, CBC, CMP #### [place] [address] [place] RBC (Bld) [#/Vol] 5.42 10*6/uL Normal 3.90-5.60 [facility] Comment on above: Performed By: #### P RL, HS TROP, CBC, CMP #### [place] [address] [place] WBC (Bld) [#/Vol] 10.1 10*3/uL Normal 4.1-10.5 [facility] Comment on above: Performed By: #### P RL, HS TROP, CBC, CMP #### [address] Comprehensive Metabolic Pane wilner 11-17-2024 Albumin [Mass/Vol] 4.2 g/dL Normal 3.5-5.7 [facility] Comment on above: Performed By: #### P RL, HS TROP, CBC, CMP #### [address] Albumin/Globulin [Mass ratio] 1.7 {ratio} Normal [facility] Comment on above: Performed By: #### P RL, HS TROP, CBC, CMP #### [address] ALP [Catalytic activity/Vol] 95 U/L Normal 34-104 [facility] Comment on above: Performed By: #### P RL, HS TROP, CBC, CMP #### [address] ALT [Catalytic activity/Vol] 12 U/L Normal 7-52 [facility] Comment on above: Performed By: #### P RL, HS TROP, CBC, CMP #### [address] Anion gap [Moles/Vol] 13.0 mmol/L Normal 6.0-15.0 [facility] Comment on above: Performed By: #### P RL, HS TROP, CBC, CMP #### [address] AST [Catalytic activity/Vol] 24 U/L Normal 13-39 [facility] Comment on above: Performed By: #### P RL, HS TROP, CBC, CMP #### [address] Bilirubin [Mass/Vol] 0.6 mg/dL Normal 0.3-1.0 [facility] Comment on above: Performed By: #### P RL, HS TROP, CBC, CMP #### [facility] [address] Calcium [Mass/Vol] 9.1 mg/dL Normal 8.6-10.3 [facility] Comment on above: Performed By: #### P RL, HS TROP, CBC, CMP #### [address] Chloride [Moles/Vol] 104 mmol/L Normal 98-107 [facility] Comment on above: Performed By: #### P RL, HS TROP, CBC, CMP #### [address] CO2 [Moles/Vol] 29.2 mmol/L Normal 21.0-31.0 [facility] Comment on above: Performed By: #### P RL, HS TROP, CBC, CMP #### [address] Creatinine [Mass/Vol] 1.27 mg/dL Normal 0.70-1.30 [facility] Comment on above: Performed By: #### P RL, HS TROP, CBC, CMP #### [place] [address] [place] GFR/1.73 sq M.predicted MDRD (S/P/Bld) [Vol rate/Area] mL/min/{1.73_m2} Normal [facility] Comment on above: Performed By: #### P RL, HS TROP, CBC, CMP #### [place] [address] [place] Globulin (S) [Mass/Vol] 2.5 g/dL Normal [facility] Comment on above: Performed By: #### P RL, HS TROP, CBC, CMP #### [place] [address] [place] Glucose [Mass/Vol] 163 mg/dL High 70-100 [facility] Comment on above: Result Comment: [place] Glucose Reference Range is dependent on time and content of last meal. Glucose of more than 200 mg/dL in a nonstressed, ambulatory subject supports the diagnosis of Diabetes Mellitus. ADA recommended reference range Performed By: #### P RL, HS TROP, CBC, CMP #### [facility] [address] Potassium [Moles/Vol] 4.2 mmol/L Normal 3.5-5.1 [facility] Comment on above: Performed By: #### P RL, HS TROP, CBC, CMP #### [facility] [address] Protein [Mass/Vol] 6.7 g/dL Normal 6.4-8.9 [facility] Comment on above: Performed By: #### P RL, HS TROP, CBC, CMP #### [facility] [address] [place] [address] [place] Sodium [Moles/Vol] 142 mmol/L Normal 136-145 [facility] Comment on above: Performed By: #### P RL, HS TROP, CBC, CMP #### [address] Urea nitrogen [Mass/Vol] 16 mg/dL Normal 7-25 [facility] Comment on above: Performed By: #### P RL, HS TROP, CBC, CMP #### [place] [address] [place] Creatine Kinaseon 11-17-2024 CK [Catalytic activity/Vol] 134 U/L Normal 30-223 [facility] Comment on above: Performed By: #### P RL, HS TROP, CBC, CMP #### [place] [address] [place] Creatine kinase [Enzymatic a ctivity/volume] in Serum or PlasmaOrdered By: Ragini Carmona on 11-17-2024 CK [Catalytic activity/Vol] Creatine kinase [Enzymatic activity/volume] in Serum or Plasma 30-223 [facility] Dipstick and Microscopicon 0 11-17-2024 Appearance (U) Clear Normal Clear [facility] Comment on above: Order Comment: Name Collection Type:: Clean-Voided Midstream Performed By: #### U RDS, ADDONUAPLUS #### [address] Bacteria,Urine None Seen Normal None Seen [facility] Comment on above: Order Comment: Name Collection Type:: Clean-Voided Midstream Performed By: #### U RDS, ADDONUAPLUS #### [facility] [address] [place] [address] [place] Bilirubin,Urine Negative Normal Negative [facility] Comment on above: Order Comment: Name Collection Type:: Clean-Voided Midstream Performed By: #### U RDS, ADDONUAPLUS #### [facility] [address] [place] [address] [place] Color (U) Yellow Normal Yellow [facility] Comment on above: Order Comment: Name Collection Type:: Clean-Voided Midstream Performed By: #### U RDS, ADDONUAPLUS #### [address] Glucose Ql (U) 70 mg/dL High Normal [facility] Comment on above: Order Comment: Name Collection Type:: Clean-Voided Midstream Performed By: #### U RDS, ADDONUAPLUS #### [place] [address] [place] Hyaline Casts,Urine None Normal 0-8 [facility] Comment on above: Order Comment: Name Collection Type:: Clean-Voided Midstream Performed By: #### U RDS, ADDONUAPLUS #### [address] Ketones Ql (U) Negative Normal Negative [facility] Comment on above: Order Comment: Name Collection Type:: Clean-Voided Midstream Performed By: #### U RDS, ADDONUAPLUS #### [facility] [address] [place] [address] [place] Leukocyte esterase Test strip Ql (U) Negative Normal Negative [facility] Comment on above: Order Comment: Name Collection Type:: Clean-Voided Midstream Performed By: #### U RDS, ADDONUAPLUS #### [place] [address] [place] Mucus,Urine Rare Normal [facility] Comment on above: Order Comment: Name Collection Type:: Clean-Voided Midstream Result Comment: PERF ORMED BY: [place] [address] PATHOLOGIST STAIN MAKER VÍCTOR LUCERO M.D. Performed By: #### U RDS, ADDONUAPLUS #### [address] Nitrite,Urine Negative Normal Negative [facility] Comment on above: Order Comment: Name Collection Type:: Clean-Voided Midstream Performed By: #### U RDS, ADDONUAPLUS #### [address] Occult Blood,Urine Negative Normal Negative [facility] Comment on above: Order Comment: Name Collection Type:: Clean-Voided Midstream Performed By: #### U RDS, ADDONUAPLUS #### [address] pH (U) 6.5 [pH] Normal 5.0-9.0 [facility] Comment on above: Order Comment: Name Collection Type:: Clean-Voided Midstream Performed By: #### U RDS, ADDONUAPLUS #### [address] Protein (U) [Mass/Vol] 70 mg/dL High Negative [facility] Comment on above: Order Comment: Name Collection Type:: Clean-Voided Midstream Performed By: #### U RDS, ADDONUAPLUS #### [place] [address] [place] RBC,Urine 3 [HPF] Normal 0-4 [facility] Comment on above: Order Comment: Name Collection Type:: Clean-Voided Midstream Performed By: #### U RDS, ADDONUAPLUS #### [place] [address] [place] Specificy [place],Urine >1.050 High 1.001-1.03 0 [facility] Comment on above: Order Comment: Name Collection Type:: Clean-Voided Midstream Result Comment: Rech ecked by refractometer Performed By: #### U RDS, ADDONUAPLUS #### [place] [address] [place] Squamous Epithelial Cell,Urine 1 [HPF] Normal 0-2 [facility] Comment on above: Order Comment: Name Collection Type:: Clean-Voided Midstream Performed By: #### U RDS, ADDONUAPLUS #### [address] Urobilinogen,Urine Normal Normal Normal [facility] Comment on above: Order Comment: Name Collection Type:: Clean-Voided Midstream Performed By: #### U RDS, ADDONUAPLUS #### [address] WBC,Urine 1 [HPF] Normal 0-4 [facility] Comment on above: Order Comment: Name Collection Type:: Clean-Voided Midstream Performed By: #### U RDS, ADDONUAPLUS #### [address] Drug Screen,Urineon 11-17-19 25 Amphetamine Screen,Urine Positive High Negative [facility] Comment on above: Performed By: #### U RDS, ADDONUAPLUS #### [address] Barbiturate Screen,Urine Negative Normal Negative [facility] Comment on above: Performed By: #### U RDS, ADDONUAPLUS #### [place] [address] [place] Benzodiazepines Screen,Urine Positive High Negative [facility] Comment on above: Performed By: #### U RDS, ADDONUAPLUS #### [address] Cannabinoid Screen,Urine Positive High Negative [facility] Comment on above: Result Comment: Thes e are unconfirmed results and should not be used for legal purposes. Drug Cut-Off Concentration: AMPH 1000 ng/mL BHASKAR 200 ng/mL RIKKI 200 ng/mL COCM 300 ng/mL OP 300 ng/mL PCP 25 ng/mL THC 20 ng/mL PERFORMED BY: [place] [address] PATHOLOGIST STAIN MAKER VÍCTOR LUCERO M.D. Performed By: #### U RDS, ADDONUAPLUS #### [facility] [address] [place] [address] Cocaine Screen,Urine Negative Normal Negative [facility] Comment on above: Performed By: #### U RDS, ADDONUAPLUS #### [facility] [address] Opiate Screen,Urine Negative Normal Negative [facility] Comment on above: Performed By: #### U RDS, ADDONUAPLUS #### [facility] [address] [place] [address] Phencyclidine Screen,Urine Negative Normal Negative [facility] Comment on above: Performed By: #### U RDS, ADDONUAPLUS #### [facility] [address] [place] [address] ECG 12 lead ECGon 11-17-2024 ECG 12 lead ECG [facility] [place] [address] [place] [address] Electrocardiograph Report Signed Patient: Aaron Olivarez MR#: [id number] 00 : 1960 Acct:[id number] Age/Sex: 64 / M ADM Date: 11/17/24 Loc: Room: [address] [place] [address] Type: ADM INOo Attending Dr: Chaz Frey [...] By Ragini Carmona, DO 1445 Normal [facility] Epithelial cells.squamous [# /area] in Urine sediment by Automated countOrdered By: Ragini Carmona on 11-17-2024 Epithelial cells.squamous Auto (Urine sed) [#/Area] Epithelial cells.squamous [#/area] in Urine sediment by Automated count 0-2 [facility] Erythrocyte Sedimentation Ra irene 11-17-2024 ESR (Bld) [Velocity] 2 mm/h Normal 0-19 [facility] Comment on above: Result Comment: PERF ORMED BY: [place] [address] PATHOLOGIST STAIN MAKER VÍCTOR LUCERO M.D. Performed By: #### G LULS #### Point of Care testing , Erythrocyte sedimentation ra te by Photometric methodOrdered By: Chaz Frey on 11-17-2024 ESR Photometric method (Bld) [Velocity] Erythrocyte sedimentation rate by Photometric method 0-19 [facility] Erythrocytes [#/area] in Uri ne sediment by Automated countOrdered By: Ragini Carmona on 11-17-2024 RBC Auto (Urine sed) [#/Area] Erythrocytes [#/area] in Urine sediment by Automated count 0- [facility] Ethanol [Mass/volume] in Ser um or PlasmaOrdered By: Ragini Carmona on 11-17-2024 Ethanol [Mass/Vol] Ethanol [Mass/volume ] in Serum or Plasma [facility] Comment on above: Test not performed Ethyl Alcohol Profileon Ethanol [Mass/Vol] mg/dL Normal [facility] Comment on above: Performed By: #### P RL, HS TROP, CBC, CMP #### [address] Percent Ethanol Not performed Normal [facility] Comment on above: Result Comment: PERF ORMED BY: [place] [address] PATHOLOGIST STAIN MAKER VÍCTOR LUCERO M.D. Performed By: #### P RL, HS TROP, CBC, CMP #### [facility] [address] [place] [id number] [place] Glucose Glucometer (BldC) [M ass/Vol]Ordered By: Ragini Carmona on 11-17-2024 Glucose [Mass/Vol] Capillary blood gluc ose measurement by glucometer (mass/volume) [facility] Comment on above: Random Glucose Refer ence Range is dependent on time and content of last meal. Glucose of more than 200 mg/dL in a nonstressed, ambulatory subject supports the diagnosis of Diabetes Mellitus. Glucose Poct Glucometerson 0 11-17-2024 Glucose [Mass/Vol] 175 mg/dL Normal [facility] Comment on above: Result Comment: [place] om Glucose Reference Range is dependent on time and content of last meal. Glucose of more than 200 mg/dL in a nonstressed, ambulatory subject supports the diagnosis of Diabetes Mellitus. PERFORMED BY: [place] [address] PATHOLOGIST STAIN MAKER VÍCTOR LUCERO M.D. Performed By: #### G LULS #### Point of Care testing , Glucose [Mass/volume] in Uri ne by Test stripOrdered By: Ragini Carmona on 11-17-2024 Glucose Test strip (U) [Mass/Vol] Glucose [Mass/volume] in Urine by Test strip High Normal [facility] Hemoglobin Test strip Ql (U) Ordered By: Ragini Carmona on 11-17-2024 Hemoglobin Ql (U) Hemoglobin [Presence ] in Urine by Test strip Negative [facility] Hyaline casts [#/area] in Ur ine sediment by Automated countOrdered By: Ragini Carmona on 11-17-2024 Hyaline casts Auto (Urine sed) [#/Area] Hyaline casts [#/area] in Urine sediment by Automated count 0-8 [facility] INR in Platelet poor plasma by Coagulation assayOrdered By: Ragini Carmona on 11-17-2024 INR Coag (PPP) [Relative time] INR in Platelet poor plasma by Coagulation assay [facility] Comment on above: INR Therapeutic Rang [...] i n Urine by Test strip Negative [facility] Leukocyte esterase [Presence ] in Urine by Test stripOrdered By: Ragini Carmona on 11-17-2024 Leukocyte esterase Test strip Ql (U) Leukocyte esterase [Presence] in Urine by Test strip Negative [facility] Leukocytes [#/area] in Urine sediment by Automated countOrdered By: Ragini Carmona on 11-17-2024 WBC Auto (Urine sed) [#/Area] Leukocytes [#/area] in Urine sediment by Automated count 0-4 [facility] Magnesiumon 11-17-2024 Magnesium [Mass/Vol] 1.9 mg/dL Normal 1.9-2.7 [facility] Comment on above: Order Comment: Comme nt add on Result Comment: PERF ORMED BY: [facility] [address] [place] [address] PATHOLOGIST STAIN MAKER VÍCTOR LUCERO M.D. Performed By: #### G LULS #### Point of Care testing , Magnesium [Mass/volume] in S andrei or PlasmaOrdered By: Chaz Frey on 11-17-2024 Magnesium [Mass/Vol] Magnesium [Mass/vol ume] in Serum or Plasma 1.9-2.7 [facility] Methamphetamine [Presence] i n UrineOrdered By: Chaz Frey on 11-17-2024 Methamphetamine Ql (U) Methamphetamine [Presence] in Urine Abnormal . [facility] Methamphetamine cutoff [Mass /volume] in Urine for Confirmatory methodOrdered By: Chaz Frey on 11-17-2024 Methamphetamine cutoff Confirm (U) [Mass/Vol] Methamphetamine cutoff [Mass/volume] in Urine for Confirmatory method [id number] [facility] Monocyte distribution width [Entitic volume] in Blood by AutomatedOrdered By: Ragini Carmona on 11-17-2024 Monocyte distribution width Auto (Bld) [Entitic vol] Monocyte distribution width [Entitic volume] in Blood by Automated 0.00-20.00 [facility] Mucus [Presence] in Urine by AutomatedOrdered By: Ragini Carmona on 11-17-2024 Mucus Auto Ql (U) Mucus [Presence] in Urine by Automated [facility] Nitrite Test strip Ql (U)Ord ered By: Ragini Carmona on 11-17-2024 Nitrite Ql (U) Nitrite [Presence] i n Urine by Test strip Negative [facility] Opiates [Presence] in UrineO rdered By: Chaz Frey on 11-17-2024 Opiates Ql (U) Opiates [Presence] in Urine Cuto [id number] [facility] Comment on above: Opiate test includes Codeine and Morphine only. Opiates [Presence] in Urine by Screen methodOrdered By: Ragini Carmona on 11-17-2024 Opiates Screen Ql (U) Opiates [Presence] in Urine by Screen method Negative [facility] Partial Thromboplastin Timeo n 11-17-2024 aPTT Coag (Bld) [Time] 22.3 s Low 25.1-36.5 [facility] Comment on above: Result Comment: A he matocrit value greater than 55% may lead to inaccurate results in coagulation testing. Patients having hematocrit values >55% require a special collection tube for coagulation studies. Please contact the laboratory at [phone] for redraw instructions. PERFORMED BY: [place] [id number] PATHOLOGIST STAIN MAKER VÍCTOR LUCERO M.D. Performed By: #### P RL, HS TROP, CBC, CMP #### [place] [id number] [place] Phencyclidine Screen Ql (U)O rdered By: Ragini Carmona on 11-17-2024 Phencyclidine Ql (U) Phencyclidine [Pres ence] in Urine by Screen method Negative [facility] Phencyclidine [Presence] in UrineOrdered By: Chaz Frey on 11-17-2024 Phencyclidine Ql (U) Phencyclidine [Pres ence] in Urine Cutoff=25 [facility] Comment on above: Performed at: [facility] [address] [place], [place] [id number] Director: Adenike Panchal PhD, Phone: [phone] Prolactinon 11-17-2024 Prolactin 14.22 ng/mL High 2.64-13.13 [facility] Comment on above: Result Comment: PERF ORMED BY: [place] [address] PATHOLOGIST STAIN MAKER VÍCTOR LUCERO M.D. Performed By: #### P RL, HS TROP, CBC, CMP #### [address] Protein Test strip (U) [Mass /Vol]Ordered By: Ragini Carmona on 11-17-2024 Protein (U) [Mass/Vol] Protein [Mass/volume] in Urine by Test strip High Negative [facility] Prothrombin Time INRon 11-17 INR Coag (PPP) [Relative time] 1.0 {INR} Normal [facility] Comment on above: Result Comment: [...] P RL, HS TROP, CBC, CMP #### [address] PT Coag (PPP) [Time] 11.9 s Normal 9.0-12.9 [facility] Comment on above: Result Comment: A he matocrit value greater than 55% may lead to inaccurate results in coagulation testing. Patients having hematocrit values >55% require a special collection tube for coagulation studies. Please contact the laboratory at [phone] for redraw instructions. Performed By: #### P RL, HS TROP, CBC, CMP #### [facility] [address] [place] [address] Prothrombin time (PT)Ordered By: Ragini Carmona on 11-17-2024 PT Coag (PPP) [Time] Prothrombin time (PT) 9.0- 12.9 [facility] Comment on above: A hematocrit value g reater than 55% may lead to inaccurate results in coagulation testing. Patients having hematocrit values >55% require a special collection tube for coagulation studies. Please contact the laboratory at [phone] for redraw instructions. Specific gravity of Urine by RefractometryOrdered By: Ragini Carmona on 11-17-2024 Specific gravity Refractometry (U) [Rel density] Specific gravity of Urine by Refractometry High 1.001-1.[address] [facility] Comment on above: Rechecked by refract ometer Troponin I High Sensitivityo n 11-17-2024 Troponin I High Sensitivity 36.7 pg/mL High 0.0-20.0 [facility] Comment on above: Result Comment: PERF ORMED BY: [place] [address] PATHOLOGIST STAIN MAKER VÍCTOR LUCERO M.D. Performed By: #### G LULS #### Point of Care testing , Troponin I High Sensitivity 21.1 pg/mL High 0.0-20.0 [facility] Comment on above: Result Comment: PERF ORMED BY: [place] [address] PATHOLOGIST STAIN MAKER VÍCTOR LUCERO M.D. Performed By: #### P RL, HS TROP, CBC, CMP #### [facility] [facility] [address] [place] [address] Urine Drug Screen w/Confirmo n 11-17-2024 Amphetamines GC/MS Confirm, Ur 527 ng/mL Normal Ejkwxp=954 [facility] Comment on above: Performed By: #### G LULS #### Point of Care testing , Amphetamines, Ur See Final Results Normal Cutoff =100 0 [facility] Comment on above: Result Comment: Amph etamine test includes Amphetamine and Methamphetamine. Performed By: #### G LULS #### Point of Care testing , Amphetamines, Ur Positive Critically abnormal . [facility] Comment on above: Result Comment: Amph etamine test includes Amphetamine and Methamphetamine. Performed By: #### G LULS #### Point of Care testing , Barbiturate, Ur Negative Normal Alsinw=225 [facility] Comment on above: Performed By: #### G LULS #### Point of Care testing , Benzodiazepines, Ur See Final Results Normal Cutoff=30 0 [facility] Comment on above: Performed By: #### G LULS #### Point of Care testing , Benzodiazepines, Urine Negative Normal Sigtur=799 [facility] Comment on above: Performed By: #### G LULS #### Point of Care testing , Cannabinoid, Ur See Final Results Normal Cutoff=50 Th [facility] Comment on above: Performed By: #### G LULS #### Point of Care testing , Cannabinoid, Urine Negative Normal Cutoff=50 [facility] Comment on above: Result Comment: PERF ORMED BY: [address] [place] [address] PATHOLOGIST STAIN MAKER VÍCTOR LUCERO M.D. Performed By: #### G LULS #### Point of Care testing , Cocaine (Metab), Ur Negative Normal Qngfpf=674 [facility] Comment on above: Performed By: #### G LULS #### Point of Care testing , Methamphetamine Positive Critically abnormal . [facility] Comment on above: Performed By: #### G LULS #### Point of Care testing , Methamphetamines GC/MS, Ur >3000 Normal Lrrftm=287 [facility] Comment on above: Performed By: #### G LULS #### Point of Care testing , Opaites, Ur Negative Normal Ntqrxt=161 [facility] Comment on above: Result Comment: Opia te test includes Codeine and Morphine only. Performed By: #### G LULS #### Point of Care testing , Phencyclidine, Ur Negative Normal Cutoff=25 [facility] Comment on above: Result Comment: Perf ormed at: [facility] [address] [place], [place] [id number] [employer] Dispatcher: Adenike Panchal PhD, Phone: [phone] Performed By: #### G LULS #### Point of Care testing , Urine cocaine metabolite det ectionOrdered By: Chaz Frey on 11-17-2024 Benzoylecgonine Ql (U) Urine cocaine metabolite detection Zlilou=619 [facility] Urobilinogen Test strip (U) [Mass/Vol]Ordered By: Raigni Carmona on 11-17-2024 Urobilinogen (U) [Mass/Vol] Urobilinogen [Mass/volume] in Urine by Test strip Normal [facility] Vitamin B12on 11-17-2024 Cobalamin (Vitamin B12) [Mass/Vol] 313 pg/mL Normal 180-914 [facility] Comment on above: Result Comment: PERF ORMED BY: [place] [address] PATHOLOGIST STAIN MAKER VÍCTOR LUCERO M.D. Performed By: #### G LULS #### Point of Care testing , Vitamin B12 ser/plasOrdered By: Chaz Frey on 11-17-2024 Cobalamin (Vitamin B12) [Mass/Vol] Vitamin B12 ser/plas 180-914 [facility] X-ray reportOrdered By: Dung Chakraborty on 11-17-2024 Study report [facility] Main [place] [id number] XRay Report Signed Patient: Aaron Olivarez MR#: [id number] : 1960 Acct:[id number] Age/Sex: 64 / M ADM Date: 5 Loc: Room: [address] [place] [address] Type: ADM INOo Attending Dr: Chaz Frey MD Copies to: Chaz Frey MD~ Ordering Provider: Chaz Fery MD Date of Service: 11/17/24 XR/XR chest [...] II, MD 11/17/241325 Signed By: 11/17/[address] [facility] Work Phone: XR chest 1V portableon 11-17 XR chest 1V portable [facility] [place] [address] XRay Report Signed Patient: Aaron Olivarez MR#: [id number] : 1960 Acct:[id number] Age/Sex: 64 / M ADM Date: 11/17/24 Loc: Room: [address] [place] [address] Type: ADM INOo Attending Dr: Chaz Frey [...] MD 11/17/241325 Signed By: 11/17/241325 Normal [facility] aPTT in Platelet poor plasma by Coagulation assayOrdered By: Ragini Carmona on 11-17-2024 aPTT Coag (PPP) [Time] Activated partial thromboplastin time (aPTT) in platelet poor plasma by coagulation a Low 25.1-36.5 [facility] Comment on above: A hematocrit value g reater than 55% may lead to inaccurate results in coagulation testing. Patients having hematocrit values >55% require a special collection tube for coagulation studies. Please contact the laboratory at [phone] for redraw instructions. pH Test strip (U)Ordered By: Ragini Carmona on 11-17-2024 pH (U) pH of Urine by Test strip 5.0-9.0 [facility] CBC with Diffon 07-15-2024 Abs. Basophil 0.04 k/uL Normal 0.00-0.20 [facility] Comment on above: Performed By: #### C DP, CMPX, MG #### [place] [address] [employer] Dispatcher: Dario Almanza MD Abs.Imm.Granulocyte <0.03 Normal 0.00-0.30 [facility] Comment on above: Performed By: #### C DP, CMPX, MG #### [place] [address] [employer] Dis[employer]: Dario Almanza MD Abs.Neutrophil (Seg) 3.52 k/uL Normal 1.50-8.10 [facility] Comment on above: Performed By: #### C DP, CMPX, MG #### [facility] [address] [place] [address] [employer] Dis[employer]: Dario Almanza MD Basophils/100 WBC (Bld) 1 % Normal 0-2 [facility] Comment on above: Performed By: #### C DP, CMPX, MG #### [facility] [address] [place] [address] [employer] Dis[employer]: Dario Almanza MD Eosinophils (Bld) [#/Vol] 0.03 10*3/uL Normal 0.00-0.44 [facility] Comment on above: Performed By: #### C DP, CMPX, MG #### [place] [address] [employer] Dis[employer]: Dario Almanza MD Eosinophils/100 WBC (Bld) 1 % Normal 1-4 [facility] Comment on above: Performed By: #### C DP, CMPX, MG #### [place] [address] [employer] Dis[employer]: Dario Almanza MD Erythrocyte distribution width (RBC) [Ratio] 13.1 % Normal 11.8-14.4 [facility] Comment on above: Performed By: #### C DP, CMPX, MG #### [place] [address] [employer] Dis[employer]: Dario Almanza MD Hematocrit (Bld) [Volume fraction] 42.4 % Normal 40.7-50.3 [facility] Comment on above: Performed By: #### C DP, CMPX, MG #### [place] [address] [employer] Dis[employer]: Dario Almanza MD Hemoglobin (Bld) [Mass/Vol] 13.7 g/dL Normal 13.0-17.0 [facility] Comment on above: Performed By: #### C DP, CMPX, MG #### [place] [address] [employer] Dis[employer]: Dario Almanza MD Immature granulocytes/100 WBC (Bld) 0 % Normal 0 [facility] Comment on above: Performed By: #### C DP, CMPX, MG #### [place] [address] [employer] Dis[employer]: Dario Almanza MD Lymphocytes (Bld) [#/Vol] 1.19 10*3/uL Normal 1.10-3.70 [facility] Comment on above: Performed By: #### C DP, CMPX, MG #### [address] [address] [employer]: Dario Almanza MD Lymphocytes/100 WBC (Bld) 22 % Low 24-43 [facility] Comment on above: Performed By: #### C DP, CMPX, MG #### [place] [address] [employer] Dis[employer]: Dario Almanza MD MCH (RBC) [Entitic mass] 29.6 pg Normal 25.2-33.5 [facility] Comment on above: Performed By: #### C DP, CMPX, MG #### [place] [address] [employer] Dis[employer]: Dario Almanza MD MCHC (RBC) [Mass/Vol] 32.3 g/dL Normal 28.4-34.8 [facility] Comment on above: Performed By: #### C DP, CMPX, MG #### [place] [address] [employer] Dis[employer]: Dario Almanza MD MCV (RBC) [Entitic vol] 91.6 fL Normal 82.6-102.9 [facility] Comment on above: Performed By: #### C DP, CMPX, MG #### [place] [address] [employer] Dis[employer]: Dario Almanza MD Monocytes (Bld) [#/Vol] 0.61 10*3/uL Normal 0.10-1.20 [facility] Comment on above: Performed By: #### C DP, CMPX, MG #### [place] [address] [employer] Dis[employer]: Dario Almanza MD Monocytes/100 WBC (Bld) 11 % Normal 3-12 [facility] Comment on above: Performed By: #### C DP, CMPX, MG #### [facility] [address] [place] [address] [employer] Dis[employer]: Dario Almanza MD Neutrophil (Seg) 65 % Normal 36-65 [facility] Comment on above: Performed By: #### C DP, CMPX, MG #### [address] [address] [employer] Dis[employer]: Dario Almanza MD NRBC Automated 0.0 per 100 WBC Normal 0.0 [facility] Comment on above: Performed By: #### C DP, CMPX, MG #### [address] [address] [employer] Dis[employer]: Dario Almanza MD Platelet mean volume (Bld) [Entitic vol] 9.2 fL Normal 8.1-13.5 [facility] Comment on above: Performed By: #### C DP, CMPX, MG #### [address] [address] [employer] Dis[employer]: Dario Almanza MD Platelets (Bld) [#/Vol] 227 10*3/uL Normal 138-453 [facility] Comment on above: Performed By: #### C DP, CMPX, MG #### [address] [address] [employer]: Dario Almanza MD RBC (Bld) [#/Vol] 4.63 10*6/uL Normal 4.21-5.77 [facility] Comment on above: Performed By: #### C DP, CMPX, MG #### [address] [address] [employer]: Dario Almanza MD WBC (Bld) [#/Vol] 5.4 10*3/uL Normal 3.5-11.3 [facility] Comment on above: Performed By: #### C DP, CMPX, MG #### [address] [place] [address] [employer]: Dario Almanza MD Comp Metabolic Pr/rfx MGon 0 07-15-2024 Albumin [Mass/Vol] 3.8 g/dL Normal 3.5-5.2 [facility] Comment on above: Performed By: #### C DP, CMPX, MG #### [facility] [address] [place] [address] [employer] Dis[employer]: Dario Almanza MD Albumin/Glob Ratio 2.0 Normal 1.0-2.5 [facility] Comment on above: Performed By: #### C DP, CMPX, MG #### [facility] [address] [place] [address] [employer] Dis[employer]: Dario Almanza MD Alkaline Phos 104 U/L Normal 40-129 [facility] Comment on above: Performed By: #### C DP, CMPX, MG #### [facility] [address] [place] [address] [employer] Dis[employer]: Dario Almanza MD ALT [Catalytic activity/Vol] 7 U/L Low 10-50 [facility] Comment on above: Performed By: #### C DP, CMPX, MG #### [facility] [address] [place] [address] [employer] Dis[employer]: Dario Almanza MD Anion gap [Moles/Vol] 7 mmol/L Low 9-16 [facility] Comment on above: Performed By: #### C DP, CMPX, MG #### [facility] [address] [place] [address] [employer] Dis[employer]: Dario Almanza MD AST [Catalytic activity/Vol] 20 U/L Normal 10-50 [facility] Comment on above: Performed By: #### C DP, CMPX, MG #### [facility] [address] [place] [address] [employer] Dis[employer]: Dario Almanza MD Bilirubin [Mass/Vol] 0.6 mg/dL Normal 0.00-1.20 [facility] Comment on above: Performed By: #### C DP, CMPX, MG #### [facility] [address] [place] [address] [employer] Dis[employer]: Dario Almanza MD Calcium [Mass/Vol] 9.3 mg/dL Normal 8.6-10.4 [facility] Comment on above: Performed By: #### C DP, CMPX, MG #### [facility] [address] [place] [address] [employer] Dis[employer]: Dario Almanza MD Chloride [Moles/Vol] 103 mmol/L Normal 98-107 [facility] Comment on above: Performed By: #### C DP, CMPX, MG #### [address] [address] [employer] Dis[employer]: Dario Almanza MD CO2 [Moles/Vol] 28 mmol/L Normal 20-31 [facility] Comment on above: Performed By: #### C DP, CMPX, MG #### [facility] [address] [place] [address] [employer] Dis[employer]: Dario Almanza MD Creatinine [Mass/Vol] 0.9 mg/dL Normal 0.70-1.20 [facility] Comment on above: Performed By: #### C DP, CMPX, MG #### [facility] [address] [place] [address] [employer] Dis[employer]: Dario Almanza MD GFR/1.73 sq M.predicted among non-blacks MDRD (S/P/Bld) [Vol rate/Area] mL/min/{1.73_m2} Normal >60 [facility] Comment on above: Result Comment: These [...] By: #### C DP, CMPX, MG #### [facility] [address] [place] [address] [employer] Dis[employer]: Dario Almanza MD Glucose [Mass/Vol] 95 mg/dL Normal 74-99 [facility] Comment on above: Performed By: #### C DP, CMPX, MG #### [facility] [address] [place] [address] [employer] Dis[employer]: Dario Almanza MD Potassium [Moles/Vol] 3.4 mmol/L Low 3.7-5.3 [facility] Comment on above: Performed By: #### C DP, CMPX, MG #### [facility] [address] [place] [address] [employer] Dis[employer]: Dario Almanza MD Protein [Mass/Vol] 5.8 g/dL Low 6.6-8.7 [facility] Comment on above: Performed By: #### C DP, CMPX, MG #### [facility] [address] [place] [address] [employer] Dis[employer]: Dario Almanza MD Sodium [Moles/Vol] 138 mmol/L Normal 136-145 [facility] Comment on above: Performed By: #### C DP, CMPX, MG #### [facility] [address] [place] [address] [employer] Dis[employer]: Dario Almanza MD Urea nitrogen [Mass/Vol] 15 mg/dL Normal 8-23 [facility] Comment on above: Performed By: #### C DP, CMPX, MG #### [facility] [address] [place] [address] [employer] Dis[employer]: Dario Almanza MD Magnesiumon 07-15-2024 Magnesium [Mass/Vol] 2.0 mg/dL Normal 1.6-2.4 [facility] Comment on above: Performed By: #### C DP, CMPX, MG #### [facility] [place] [address] [employer]: Dario Almanza MD BUN, POCon 07-14-2024 Urea nitrogen [Mass/Vol] 18 mg/dL Normal 8-[address] [facility] [address] BRAIN PERFUSIONon 024 CT BRAIN [...] Edgar Montilla MD 07/14/24 Final result Normal [facility] CTA HEAD NECK W CONTRASTon 0 [...] Edgar Montilla MD 07/14/24 Final result Normal [facility] Calcium, Ionic (POC)on 07-14 Calcium [Moles/Vol] 1.11 mmol/L Low 1.15-1.33 [facility] Creatinine w/GFR, POCon Creatinine [Mass/Vol] 1.0 mg/dL Normal 0.51-1.19 [facility] GFR/1.73 sq M.predicted among non-blacks MDRD (S/P/Bld) [Vol rate/Area] 84 mL/min/{1.73_m2} Normal >60 [facility] Comment on above: Result Comment: These [...] Abuse, Uron 2023 Amphetamine(s),Ur Positive Abnormal NEG [facility] Comment on above: Result Comment: Cuto ff: 1000 ng/mL Performed By: #### U AMIC, MARIA D #### [employer] [address] [place] [address] [employer]: Dario Almanza MD Benzodiazepine(s) Positive Abnormal NEG [facility] Comment on above: Result Comment: Cuto ff: 200 ng/ml Performed By: #### U AMIC, MARIA D #### [employer] [address] [place] [address] [employer] Dis[employer]: Dario Almanza MD Cannabinoid(s),Ur Positive Abnormal NEG [facility] Comment on above: Result Comment: Cuto ff: 50 ng/ml Performed By: #### U AMIC, MARIA D #### [address] [address] [employer] Dis[employer]: Dario Almanza MD Interpretive Info Assay provides rapid clinical screening only. Presumptive positive results for Normal [facility] Comment on above: Result Comment: lega l purposes should be confirmed by another method. To request confirmation, please call the lab within 7 days of sample submission. Performed By: #### U AMIC, MARIA D #### [facility] [address] [place] [address] [employer] Dis[employer]: Dario Almanza MD Barbiturate(s),Ur Negative Normal NEG [facility] Comment on above: Result Comment: Cuto ff: 200 ng/ml Performed By: #### U AMIC, MARIA D #### [address] [address] [employer] Dis[employer]: Dario Almanza MD Cocaine Metabolite Negative Normal NEG [facility] Comment on above: Result Comment: Cuto ff: 300 ng/ml Performed By: #### U AMIC, MARIA D #### [facility] [address] [place] [address] [employer] Dis[employer]: Dario Almanza MD Fentanyl, Urine Negative Normal NEG [facility] Comment on above: Result Comment: Cuto ff: 5 ng/ml Performed By: #### U AMIC, MARIA D #### [facility] [address] [place] [address] [employer] Dis[employer]: Dario Almanza MD Methadone Ql (U) Negative Normal NEG [facility] Comment on above: Result Comment: Cuto ff: 300 ng/ml Performed By: #### U AMIC, MARIA D #### [employer] [address] [place] [address] [employer] Dis[employer]: Dario Almanza MD Opiate(s), Ur Negative Normal NEG [facility] Comment on above: Result Comment: Cuto ff: 300 ng/ml Performed By: #### U AMIC, MARIA D #### [facility] [address] [place] [address] [employer] Dis[employer]: Dario Almanza MD Oxycodone, Urine Negative Normal NEG [facility] Comment on above: Result Comment: Cuto ff: 100 ng/ml Performed By: #### U AMIC, MARIA D #### [employer] [address] [place] [address] [employer]: Dario Almanza MD Phencyclidine, Ur Negative Normal NEG [facility] Comment on above: Result Comment: Cuto ff: 25 ng/ml Performed By: #### U AMIC, MARIA D #### [employer] [address] [place] [address] [employer] Dis[employer]: Dario Almanza MD Electrolyteson 07-14-2024 Anion gap [Moles/Vol] 9 mmol/L Normal 7-16 [facility] Chloride [Moles/Vol] 101 mmol/L Normal 98-107 [facility] CO2 [Moles/Vol] 32 mmol/L High 22-30 [facility] Potassium [Moles/Vol] 4.0 mmol/L Normal 3.5-4.5 [facility] Sodium [Moles/Vol] 141 mmol/L Normal 138-146 [facility] Glucose (POC)on 07-14-2024 Glucose [Mass/Vol] 172 mg/dL High 74-100 [facility] Hgb/Hct, POCon 07-14-2024 Hematocrit (Bld) [Volume fraction] 43 % Normal 41-53 [facility] Hemoglobin (Bld) [Mass/Vol] 14.8 g/dL Normal 13.5-17.5 [facility] Lactic Acidon 07-14-2024 Lactic Acid,Whole Bl 1.7 mmol/L Normal 0.7-2.1 [facility] Comment on above: Performed By: #### E DTOX, LACTIC #### [facility] [address] [place] [address] [employer] Dis[employer]: Dario Almanza MD Lactic Acid (POC)on 07-14-20 24 Lactate [Moles/Vol] 2.8 mmol/L High 0.56-1.39 [facility] MRI BRAIN W WO CONTRASTon MRI [...] collection present. The proximal portions of the [place] demonstrate normal flow voids. ORBITS: [...] Edgar Montilla MD 07/14/24 Final result Normal [facility] Stroke Panelon 07-14-2024 Abs. Basophil 0.06 k/uL Normal 0.00-0.20 [facility] Comment on above: Performed By: #### S TITUSKE #### [place] [address] [employer]: Dario Almanza MD Abs.Imm.Granulocyte 0.00 k/uL Normal 0.00-0.30 [facility] Comment on above: Performed By: #### S TITUSKE #### [place] [address] [employer]: Dario Almanza MD Abs.Neutrophil (Seg) 5.40 k/uL Normal 1.50-8.10 [facility] Comment on above: Performed By: #### S KAY #### [place] [address] [employer] Dis[employer]: Dario Almanza MD Basophils/100 WBC (Bld) 1 % Normal 0-2 [facility] Comment on above: Performed By: #### S KAY #### [place] [address] [employer] Dis[employer]: Dario Almanza MD Eosinophils (Bld) [#/Vol] 0.00 10*3/uL Normal 0.00-0.44 [facility] Comment on above: Performed By: #### S TITUSKE #### [address] [address] [employer]: Dario Almanza MD Eosinophils/100 WBC (Bld) 0 % Low 1-4 [facility] Comment on above: Performed By: #### S TITUSKE #### [address] [address] [employer]: Dario Almanza MD Immature granulocytes/100 WBC (Bld) 0 % Normal 0 [facility] Comment on above: Performed By: #### S TROKE #### [address] [address] [employer]: Dario Almanza MD Lymphocytes (Bld) [#/Vol] 0.43 10*3/uL Low 1.10-3.70 [facility] Comment on above: Performed By: #### S TROKE #### [address] [address] [employer]: Dario Almanza MD Lymphocytes/100 WBC (Bld) 7 % Low 24-43 [facility] Comment on above: Performed By: #### S TROKE #### [address] [address] [employer]: Dario Almanza MD Monocytes (Bld) [#/Vol] 0.31 10*3/uL Normal 0.10-1.20 [facility] Comment on above: Performed By: #### S TROKE #### [address] [address] [employer]: Dario Almanza MD Monocytes/100 WBC (Bld) 5 % Normal 3-12 [facility] Comment on above: Performed By: #### S TROKE #### [address] [address] [employer]: Dario Almanza MD Morphology David (Bld) [Interp] Normal Normal [facility] Comment on above: Performed By: #### S TROKE #### [address] [address] [employer]: Dario Almanza MD Neutrophil (Seg) 87 % High 36-65 [facility] Comment on above: Performed By: #### S TROKE #### [address] [address] [employer]: Dario Almanza MD Anion gap [Moles/Vol] 8 mmol/L Low 9-16 [facility] Comment on above: Performed By: #### S TROKE #### [address] [address] [employer]: Dario Almanza MD Calcium [Mass/Vol] 8.5 mg/dL Low 8.6-10.4 [facility] Comment on above: Performed By: #### S TROKE #### [address] [address] [employer]: Dario Almanza MD Chloride [Moles/Vol] 102 mmol/L Normal 98-107 [facility] Comment on above: Performed By: #### S TROKE #### [address] [address] [employer] Dis[employer]: Dario Almanza MD CK [Catalytic activity/Vol] 101 U/L Normal 39-308 [facility] Comment on above: Performed By: #### S TROKE #### [address] [address] [employer] Dis[employer]: Dario Almanza MD CO2 [Moles/Vol] 27 mmol/L Normal 20-31 [facility] Comment on above: Performed By: #### S TROKE #### [address] [address] [employer]: Dario Almanza MD Creatinine [Mass/Vol] 1.1 mg/dL Normal 0.70-1.20 [facility] Comment on above: Performed By: #### S TROKE #### [address] [address] [employer]: Dario Almanza MD GFR/1.73 sq M.predicted among non-blacks MDRD (S/P/Bld) [Vol rate/Area] 74 mL/min/{1.73_m2} Normal >60 [facility] Comment on above: Result Comment: These [...] secretion. Performed By: #### S TITUSKE #### [facility] [address] [place] [address] [employer]: Dario Almanza MD Glucose [Mass/Vol] 174 mg/dL High 74-99 [facility] Comment on above: Performed By: #### S KAY #### [address] [address] [employer] Dispatcher: Dario Almanza MD Myoglobin [Mass/Vol] 106 ng/mL High 28-72 [facility] Comment on above: Performed By: #### S TITUSKE #### [facility] [address] [place] [address] [employer] Dispatcher: Dario Almanza MD Potassium [Moles/Vol] 4.0 mmol/L Normal 3.7-5.3 [facility] Comment on above: Result Comment: SPEC IMEN SLIGHTLY HEMOLYZED, RESULTS MAY BE ADVERSELY AFFECTED. Performed By: #### S TITUSKE #### [facility] [address] [place] [address] [employer] Dispatcher: Dario Almanza MD Sodium [Moles/Vol] 137 mmol/L Normal 136-145 [facility] Comment on above: Performed By: #### S TITUSKE #### [address] [address] [employer] Dispatcher: Dario Almanza MD Troponin, High Sens 24 ng/L High 0-22 [facility] Comment on above: Result Comment: High Sensitivity Troponin values cannot be compared with other Troponin methodologies. Performed By: #### S KAY #### [facility] [address] [place] [address] [employer] Dispatcher: Dario Almanza MD Urea nitrogen [Mass/Vol] 16 mg/dL Normal 8-23 [facility] Comment on above: Performed By: #### S KAY #### [address] [address] [employer] Dispatcher: Dario Almanza MD aPTT Coag (Bld) [Time] 22.1 s Low 23.0-36.5 [facility] Comment on above: Result Comment: IV Heparin Therapy Range: 66.0-92.0 sec Performed By: #### S KAY #### [address] [address] [employer] Dispatcher: Dario Almanza MD INR Coag (PPP) [Relative time] 1.1 {INR} Normal [facility] Comment on above: Result Comment: Therapeutic Range: Moderate Anticoagulant Intensity: INR = 2.0-3.0 High Anticoagulant Intensity: INR = 2.5-3.5 Performed By: #### S KAY #### [address] [address] [employer] Dispatcher: Dario Almanza MD PT Coag (PPP) [Time] 13.6 s Normal 11.7-14.9 [facility] Comment on above: Performed By: #### S KAY #### [facility] [address] [place] [address] [employer] Dispatcher: Dario Almanza MD Erythrocyte distribution width (RBC) [Ratio] 13.2 % Normal 11.8-14.4 [facility] Comment on above: Performed By: #### S KAY #### [facility] [address] [place] [address] [employer] Dispatcher: Dario Almanza MD Hematocrit (Bld) [Volume fraction] 42.4 % Normal 40.7-50.3 [facility] Comment on above: Performed By: #### S KAY #### [place] [address] [employer] Dispatcher: Dario Almanza MD Hemoglobin (Bld) [Mass/Vol] 13.9 g/dL Normal 13.0-17.0 [facility] Comment on above: Performed By: #### S KAY #### [place] [address] [employer] Dis[employer]: Dario Almanza MD MCH (RBC) [Entitic mass] 29.6 pg Normal 25.2-33.5 [facility] Comment on above: Performed By: #### S KAY #### [place] [address] [employer] Dispatcher: Dario Almanza MD MCHC (RBC) [Mass/Vol] 32.8 g/dL Normal 28.4-34.8 [facility] Comment on above: Performed By: #### S KAY #### [place] [address] [employer] Dis[employer]: Dario Almanza MD MCV (RBC) [Entitic vol] 90.2 fL Normal 82.6-102.9 [facility] Comment on above: Performed By: #### S KAY #### [place] [address] [employer] Dispatcher: Dario Almanza MD NRBC Automated 0.0 per 100 WBC Normal 0.0 [facility] Comment on above: Performed By: #### S KAY #### [place] [address] [employer] Dispatcher: Dario Almanza MD Platelet mean volume (Bld) [Entitic vol] 9.3 fL Normal 8.1-13.5 [facility] Comment on above: Performed By: #### S TROKE #### [facility] [address] [place] [address] [employer] Dispatcher: Dario Almanza MD Platelets (Bld) [#/Vol] 267 10*3/uL Normal 138-453 [facility] Comment on above: Performed By: #### S KAY #### [address] [address] [employer] Dis[employer]: Dario Almanza MD RBC (Bld) [#/Vol] 4.70 10*6/uL Normal 4.21-5.77 [facility] Comment on above: Performed By: #### S KAY #### [address] [address] [employer] Dispatcher: Dario Almanza MD WBC (Bld) [#/Vol] 6.2 10*3/uL Normal 3.5-11.3 [facility] Comment on above: Performed By: #### S KAY #### [address] [address] [employer] Dis[employer]: Dario Almanza MD TSH w/reflex to FT4on 2023 Thyroid Stim. Horm. 1.44 uIU/mL Normal 0.27-4.20 [facility] Comment on above: Performed By: #### T SHX ####[place], [place] [address])[phone] Director: Dario Almanza MD Tox Scr, Bld, EDon 4 Acetaminophen [Mass/Vol] ug/mL Low 10-30 [facility] Comment on above: Performed By: #### E DTOX, LACTIC #### [facility] [address] [place] [address] [employer] Dis[employer]: Dario Almanza MD Ethanol [Mass/Vol] mg/dL Normal <10 [facility] Comment on above: Performed By: #### E DTOX, LACTIC #### [address] [address] [employer] Dis[employer]: Dario Almanza MD Ethanol percent <0.010 Normal <0.010 [facility] Comment on above: Performed By: #### E DTOX, LACTIC #### [address] [address] [employer] Dis[employer]: Dario Almanza MD Salicylate <0.5 Normal 0.0-10.0 [facility] Comment on above: Performed By: #### E DTOX, LACTIC #### [address] [address] [employer] Dis[employer]: Dario Almanza MD Urinalysis w/ Microon 2023 Bacteria None Normal NONE [facility] Comment on above: Performed By: #### U AMIC, MARIA D #### [address] [address] [employer] Dispatcher: Dario Almanza MD Bilirubin, SemiQt,Ur Negative Normal NEG [facility] Comment on above: Performed By: #### U AMIC, MARIA D #### [address] [address] [employer] Dispatcher: Dario Almanza MD Blood, Urine Negative Normal NEG [facility] Comment on above: Performed By: #### U AMIC, MARIA D #### [address] [address] [employer] Dispatcher: Dario Almanza MD Casts 5 TO 10 HYALINE Normal 0-8 [facility] Comment on above: Result Comment: Refe rence range defined for non-centrifuged specimen. Performed By: #### U AMIC, MARIA D #### [address] [address] [employer] Dis[employer]: Dario Almanza MD Clarity (U) Clear Normal CLEAR [facility] Comment on above: Performed By: #### U AMIC, MARIA D #### [facility] [address] [place] [address] [employer] Dispatcher: Dario Almanza MD Color (U) Yellow Normal YEL [facility] Comment on above: Performed By: #### U AMIC, MARIA D #### [address] [address] [employer] Dis[employer]: Dario Almanza MD Epithelial cells LM Ql (Urine sed) 0 TO 2 Normal 0-5 [facility] Comment on above: Performed By: #### U AMIC, MARIA D #### [address] [address] [employer] Dispatcher: Dario Almanza MD Glucose Ql (U) 1+ mg/dL Abnormal NEG [facility] Comment on above: Performed By: #### U AMIC, MARIA D #### [address] [address] [employer] Dispatcher: Dario Almanza MD Ketones Ql (U) Negative Normal NEG [facility] Comment on above: Performed By: #### U AMIC, MARIA D #### [address] [address] [employer] Dispatcher: Dario Almanza MD Leukocyte esterase Test strip Ql (U) Negative Normal NEG [facility] Comment on above: Performed By: #### U AMIC, MARIA D #### [facility] [address] [place] [address] [employer] Dis[employer]: Dario Almanza MD Nitrite,Ur Negative Normal NEG [facility] Comment on above: Performed By: #### U AMIC, MARIA D #### [facility] [address] [place] [address] [employer] Dispatcher: Dario Almanza MD PH,Ur 7.0 Normal 5.0-8.0 [facility] Comment on above: Performed By: #### U AMIC, MARIA D #### [address] [address] [employer] Dispatcher: Dario Almanza MD Protein Ql (U) 1+ mg/dL Abnormal NEG [facility] Comment on above: Performed By: #### U AMIC, MARIA D #### [address] [address] [employer] Dispatcher: Dario Almanza MD Spec. [place],Ur 1.044 High 1.005-1.03 0 [facility] Comment on above: Performed By: #### U AMIC, MARIA D #### [address] [address] [employer] Dispatcher: Dario Almanza MD Urine RBC's 0 TO 2 Normal 0-4 [facility] Comment on above: Result Comment: Refe rence range defined for non-centrifuged specimen. Performed By: #### U AMIC, MARIA D #### [facility] [address] [place] [address] [employer] Dispatcher: Dario Almanza MD Urine WBC's None Normal 0-5 [facility] Comment on above: Performed By: #### U AMIC, MARIA D #### [address] [address] [employer] Dispatcher: Dario Almanza MD Urobilinogen,Ur Normal Normal 0.0-1.0 [facility] Comment on above: Performed By: #### U AMIC, MARIA D #### [address] [address] [employer] Dispatcher: Dario Almanza MD Venous Bld Gas,POCon 024 HCO3 (Bld) [Moles/Vol] 31.9 mmol/L High 22.0-29.0 [facility] Oxygen saturation in Blood 45.4 % Low 60.0-85.0 [facility] pCO2, Venous 47.5 mm Hg Normal 41.0-51.0 [facility] pH,Venous 7.435 High 7.320-7.43 0 [facility] pO2, Venous 24.6 mm Hg Low 30.0-50.0 [facility] Positive Base Excess (calc) 6.4 mmol/L High 0.0-3.0 [facility] XR ABDOMEN (KUB) (SINGLE AP VIEW)on [...] Jt Gray MD 07/14/24 Final result Normal [facility] XR CHEST PORTABLEon 07-14-20 XR CHEST [...] Basil Witt DO 07/14/24 Final result Normal [facility] Calcium [Mass/volume] in Ser um or PlasmaOrdered By: Janae Jose on 05-05-2024 Calcium [Mass/Vol] 9.0 mg/dL 8.6-10.3 [facility] Carbon dioxide, total [Moles /volume] in Serum or PlasmaOrdered By: Janae Jose on 05-05-2024 CO2 [Moles/Vol] 30.3 mmol/L 21.0-31.0 [facility] Chloride [Moles/volume] in S andrei or PlasmaOrdered By: Janae Jose on 05-05-2024 Chloride [Moles/Vol] 98 mmol/L 98-107 [facility] Creatinine [Mass/volume] in Serum or PlasmaOrdered By: Janae Jose on 05-05-2024 Creatinine [Mass/Vol] 0.97 mg/dL 0.70-1.30 [facility] Glucose [Mass/volume] in Ser um or PlasmaOrdered By: Janae Jose on 05-05-2024 Glucose [Mass/Vol] 105 mg/dL 70-100 [facility] Comment on above: ADA recommended refe rence rangeRandom Glucose Reference Range is dependent on time and content of last meal. Glucose of more than 200 mg/dL in a nonstressed, ambulatory subject supports the diagnosis of Diabetes Mellitus. No Panel InformationOrdered By: Janae Jose on 05-05-2024 Estimated GFR (CKD-EPI) > 60.0 mL/Min [facility] Creatinine Clearance (Chem 82.90 [facility] Potassium [Moles/volume] in Serum or PlasmaOrdered By: Janae Jose on 05-05-2024 Potassium [Moles/Vol] 4.4 mmol/L 3.5-5.1 [facility] Serum or plasma anion gap de terminationOrdered By: Janae Jose on 05-05-2024 Anion gap [Moles/Vol] 8.1 mmol/L 6.0-15.0 [facility] Sodium [Moles/volume] in Ser um or PlasmaOrdered By: Janae Jose on 05-05-2024 Sodium [Moles/Vol] 132 mmol/L 136-145 [facility] Urea nitrogen [Mass/volume] in Serum or PlasmaOrdered By: Janae Jose on 05-05-2024 Urea nitrogen [Mass/Vol] 25 mg/dL 7-25 [facility] Ammonia [Moles/volume] in Pl asmaOrdered By: Víctor Agrawal on 05-04-2024 Ammonia (P) [Moles/Vol] 22 umol/L 1135 [facility] Basophils Auto (Bld) [#/Vol] Ordered By: Magdy Douglass on 05-04-2024 Basophils (Bld) [#/Vol] 0.0 10*3/uL 0.0-0.2 [facility] Basophils/100 WBC Auto (Bld) Ordered By: Magdy Douglass on 05-04-2024 Basophils/100 WBC (Bld) 0.1 % . [facility] Eosinophils Auto (Bld) [#/Vo l]Ordered By: Magdy Douglass on 05-04-2024 Eosinophils (Bld) [#/Vol] 0.0 10*3/uL 0.0-0.45 [facility] Eosinophils/100 WBC Auto (Bl d)Ordered By: Magdy Douglass on 05-04-2024 Eosinophils/100 WBC (Bld) 0.0 % . [facility] Erythrocyte distribution wid th Auto (RBC) [Ratio]Ordered By: Magdy Douglass on 05-04-2024 Erythrocyte distribution width (RBC) [Ratio] 16.5 % 12.0-14.8 [facility] Folate [Mass/volume] in Seru m or PlasmaOrdered By: Janae Jose on 05-04-2024 Folate [Mass/Vol] 9.7 ng/mL >5.9 [facility] Comment on above: Folate reference ran ge: >5.9 ng/mlThe WHO technical consultation on folate and vitamin [id number] has determined that folate concentrations lessthan 4 ng/ml are considered deficient. Hematocrit Auto (Bld) [Volum e fraction]Ordered By: Magdy Douglass on 05-04-2024 Hematocrit (Bld) [Volume fraction] 45.0 % 38.8-50.0 [facility] Hemoglobin [Mass/volume] in BloodOrdered By: Magdy Douglass on 05-04-2024 Hemoglobin (Bld) [Mass/Vol] 14.8 g/dL 13.0-17.0 [facility] Leukocytes [#/volume] correc srinivas for nucleated erythrocytes in Blood by Automated counOrdered By: Magdy Douglass on 05-04-2024 WBC corrected for nucl RBC Auto (Bld) [#/Vol] 9.6 10*3/uL 4.1-10.5 [facility] Lymphocytes Auto (Bld) [#/Vo l]Ordered By: Magdy Douglass on 05-04-2024 Lymphocytes (Bld) [#/Vol] 0.5 10*3/uL 1.00-4.8 [facility] Lymphocytes/100 WBC Auto (Bl d)Ordered By: Magdy Douglass on 05-04-2024 Lymphocytes/100 WBC (Bld) 4.9 % . [facility] MCH Auto (RBC) [Entitic mass ]Ordered By: Magdy Douglass on 05-04-2024 MCH (RBC) [Entitic mass] 29.8 pg 27.5-35.2 [facility] MCHC Auto (RBC) [Mass/Vol]Or dered By: Magdy Douglass on 05-04-2024 MCHC (RBC) [Mass/Vol] 32.9 g/dL 32.5-35.6 [facility] MCV Auto (RBC) [Entitic vol] Ordered By: Magdy Douglass on 05-04-2024 MCV (RBC) [Entitic vol] 90.4 fL 83.5-101 [facility] Monocytes Auto (Bld) [#/Vol] Ordered By: Magdy Douglass on 05-04-2024 Monocytes (Bld) [#/Vol] 0.3 10*3/uL 0.0-0.8 [facility] Monocytes/100 WBC Auto (Bld) Ordered By: Magdy Douglass on 05-04-2024 Monocytes/100 WBC (Bld) 3.0 % . [facility] Neutrophils Auto (Bld) [#/Vo l]Ordered By: Magdy Douglass on 05-04-2024 Neutrophils (Bld) [#/Vol] 8.9 10*3/uL 1.8-7.7 [facility] Neutrophils/100 WBC Auto (Bl d)Ordered By: Magdy Douglass on 05-04-2024 Neutrophils/100 WBC (Bld) 92.0 % . [facility] Nucleated erythrocytes [Pres ence] in Blood by Automated countOrdered By: Magdy Douglass on 05-04-2024 Nucleated RBC Auto Ql (Bld) 0.0 /100{WBC} 0-0.5 [facility] Platelet mean volume Auto (B ld) [Entitic vol]Ordered By: Magdy Douglass on 05-04-2024 Platelet mean volume (Bld) [Entitic vol] 6.5 fL 6.6-10.1 [facility] Platelets Auto (Bld) [#/Vol] Ordered By: Magdy Douglass on 05-04-2024 Platelets (Bld) [#/Vol] 417 10*3/uL 150-450 [facility] RBC Auto (Bld) [#/Vol]Ordere d By: Magdy Douglass on 05-04-2024 RBC (Bld) [#/Vol] 4.97 10*6/uL 3.90-5.60 [facility] Thyrotropin [Units/volume] i n Serum or PlasmaOrdered By: Janae Jose on 05-04-2024 TSH Qn 5.50 m[IU]/L 0.45-5.33 [facility] Vitamin B12 ser/plasOrdered By: Janae Jose on 05-04-2024 Cobalamin (Vitamin B12) [Mass/Vol] 500 pg/mL 180-914 [facility] WBC Auto (Bld) [#/Vol]Ordere d By: Magdy Douglass on 05-04-2024 WBC (Bld) [#/Vol] 9.6 10*3/uL 4.1-10.5 [facility] Alanine aminotransferase [En zymatic activity/volume] in Serum or PlasmaOrdered By: Magdy Douglass on 05-03-2024 ALT [Catalytic activity/Vol] 14 U/L 7-52 [facility] Albumin [Mass/volume] in Ser um or Plasma by Bromocresol green (BCG) dye binding methoOrdered By: Magdy Douglass on 05-03-2024 Albumin BCG dye [Mass/Vol] 3.1 g/dL 3.5-5.7 [facility] Alkaline phosphatase [Enzyma tic activity/volume] in Serum or PlasmaOrdered By: Magdy Douglass on 05-03-2024 ALP [Catalytic activity/Vol] 131 U/L 34-104 [facility] Aspartate aminotransferase [ Enzymatic activity/volume] in Serum or PlasmaOrdered By: Magdy Douglass on 05-03-2024 AST [Catalytic activity/Vol] 12 U/L 13-39 [facility] Bilirubin.total [Mass/volume ] in Serum or PlasmaOrdered By: Magdy Douglass on 05-03-2024 Bilirubin [Mass/Vol] 0.4 mg/dL 0.3-1.0 [facility] Globulin Calc (S) [Mass/Vol] Ordered By: Magdy Douglass on 05-03-2024 Globulin (S) [Mass/Vol] 2.8 g/dL [facility] Protein [Mass/volume] in Ser um or PlasmaOrdered By: Magdy Douglass on 05-03-2024 Protein [Mass/Vol] 5.9 g/dL 6.4-8.9 [facility] Serum or plasma albumin/glob ulin mass ratioOrdered By: Magdy Douglass on 05-03-2024 Albumin/Globulin [Mass ratio] 1.1 {ratio} [facility] C reactive protein [Mass/vol ume] in Serum or PlasmaOrdered By: Magdy Douglass on 05-02-2024 CRP [Mass/Vol] 2.5 mg/dL 0.0-0.5 [facility] Lactate [Moles/volume] in Se rum or PlasmaOrdered By: Magdy Douglass on 05-02-2024 Lactate [Moles/Vol] 0.6 mmol/L 0.5-2.2 [facility] Magnesium [Mass/volume] in S andrei or PlasmaOrdered By: Magdy Douglass on 05-02-2024 Magnesium [Mass/Vol] 2.1 mg/dL 1.9-2.7 [facility] Troponin I.cardiac [Mass/vol ume] in Serum or Plasma by Detection limit <= 0.01 ng/Ordered By: Janae Jose on 05-02-2024 Troponin I.cardiac DL <= 0.01 ng/mL [Mass/Vol] 74.8 pg/mL 0.0-20.0 [facility] Comment on above: Critical Result : Ca lled to and read back by: JAYLAN YAO at: 05/02/2024 15:02:51 by:JANET ACETAMINOPHENon 11-24-2022 Acetaminophen [Mass/Vol] ug/mL Normal 10.0-30.0 [facility] Comment on above: Performed By: #### S ALYC, ACET, CMP, ETH #### [facility] [address] [place] [address] Dr. Renny Azevedo CBC AUTO DIFFon 11-24-2022 BASO # 0.0 103/ul Normal 0.0-0.1 [facility] Comment on above: Performed By: #### C BC #### [facility] [address] [place] [address] Dr. Renny Azevedo Basophils/100 WBC (Bld) 0.8 % Normal 0.2-2.0 [facility] Comment on above: Performed By: #### C BC #### [facility] [address] [place] [address] Dr. Renny Azevedo EO # 0.3 103/ul Normal 0.0-0.7 [facility] Comment on above: Performed By: #### C BC #### [facility] [address] [place] [address] Dr. Renny Azevedo Eosinophils/100 WBC (Bld) 6.2 % Normal 0.9-7.0 [facility] Comment on above: Performed By: #### C BC #### [facility] [address] [place] [address] Dr. Renny Azevedo Erythrocyte distribution width (RBC) [Ratio] 14.8 % Normal 11.0-15.0 [facility] Comment on above: Performed By: #### C BC #### [facility] [address] [place] [address] Dr. Renny Azevedo Hematocrit (Bld) [Volume fraction] 38.6 % Critically low 42.0-54.0 [facility] Comment on above: Performed By: #### C BC #### [facility] [address] [place] [address] Dr. Renny Azevedo Hemoglobin (Bld) [Mass/Vol] 12.6 g/dL Critically low 14.0-18.0 [facility] Comment on above: Performed By: #### C BC #### [facility] [address] [place] [address] Dr. Renny Azevedo IG # 0.01 10e3/ul Normal 0.00-0.03 [facility] Comment on above: Performed By: #### C BC #### [facility] [address] [place] [address] Dr. Renny Azevedo IG % 0.2 % Normal 0.0-0.5 [facility] Comment on above: Performed By: #### C BC #### [facility] [address] [place] [address] Dr. Renny Azevedo LYMPH # 1.4 103/ul Normal 1.2-3.8 [facility] Comment on above: Performed By: #### C BC #### [facility] [address] [place] [address] Dr. Renny Azevedo Lymphocytes/100 WBC (Bld) 28.1 % Normal 20.5-60.0 [facility] Comment on above: Performed By: #### C BC #### [facility] [address] [place] [address] Dr. Renny Azevedo MANUAL DIFF REQ NO Normal [facility] Comment on above: Performed By: #### C BC #### [facility] [address] [place] [address] Dr. Renny Azevedo MCH (RBC) [Entitic mass] 31.0 pg Normal 25.9-34.0 [facility] Comment on above: Performed By: #### C BC #### [facility] [address] [place] [address] Dr. Renny Azevedo MCHC (RBC) [Mass/Vol] 32.6 g/dL Normal 29.9-35.2 [facility] Comment on above: Performed By: #### C BC #### [facility] [address] [place] [address] Dr. Renny Azevedo MCV (RBC) [Entitic vol] 95.1 fL Critically high 80.0-94.0 [facility] Comment on above: Performed By: #### C BC #### [facility] [address] [place] [address] Dr. Renny Azevedo MONO # 0.3 103/ul Normal 0.3-0.8 [facility] Comment on above: Performed By: #### C BC #### [facility] [address] [place] [address] Dr. Renny Azevedo Monocytes/100 WBC (Bld) 5.8 % Normal 1.7-12.0 [facility] Comment on above: Performed By: #### C BC #### [facility] [address] [place] [address] Dr. Renny Azevedo NEUT # 3.0 103/ul Normal 1.4-6.5 [facility] Comment on above: Performed By: #### C BC #### [facility] [address] [place] [address] Dr. Renny Azevedo Neutrophils/100 WBC (Bld) 58.9 % Normal 43.0-75.0 [facility] Comment on above: Performed By: #### C BC #### [facility] [address] [place] [address] Dr. Renny Azevedo Platelet mean volume (Bld) [Entitic vol] 8.8 fL Critically low 9.5-13.5 [facility] Comment on above: Performed By: #### C BC #### [facility] [address] [place] [address] Dr. Renny Azevedo PLT 260 103/ul Normal 150-450 [facility] Comment on above: Performed By: #### C BC #### [facility] [address] [place] [address] Dr. Renny Azevedo RBC 4.06 106/ul Critically low 4.70-6.10 [facility] Comment on above: Performed By: #### C BC #### [facility] [address] [place] [address] Dr. Renny Azevedo WBC 5.0 103/ul Normal 4.0-11.0 [facility] Comment on above: Performed By: #### C #### [facility] [address] CSPINE WO CONon [...] VIC ADAMES Date: 2022-11-24 05:42 Normal [facility] CT FACIAL BONES WO CONon CT [...] ANNA RICO Date: 2022-11-24 05:43 Normal [facility] DRUG SCREEN RAPID (URINE)on 11-24-2022 AMP Positive Abnormal NEGATIVE [facility] Comment on above: Performed By: #### D RUGRPD #### [facility] [address] [address] [address] Renny Azevedo BAR Negative Normal NEGATIVE [facility] Comment on above: Performed By: #### D RUGRPD #### [facility] [address] [address] [address] Renny Azevedo BUP Negative Normal NEGATIVE [facility] Comment on above: Performed By: #### D RUGRPD #### [facility] [address] [address] [address] Renny Azevedo BZO Negative Normal NEGATIVE [facility] Comment on above: Performed By: #### D RUGRPD #### [facility] [address] [address] [address] Renny Azevedo SHAYE Positive Abnormal NEGATIVE [facility] Comment on above: Performed By: #### D RUGRPD #### [facility] [address] [place] [address] Dr. Renny Azeveod CUT-OFFS SEE BELOW Normal [facility] Comment on above: Result Comment: AMP [...] ng/mL Performed By: #### D RUGRPD #### [facility] [address] [place] [address] Dr. Renny Azevedo DRUG CUT HEADER DRUG CLASS TEST SYST EM CUT-OFF CONCENTRATIONS ARE FOLLOWS: Normal [facility] Comment on above: Performed By: #### D RUGRPD #### [facility] [address] [place] [address] Dr. Renny Azevedo mAMP Positive Abnormal NEGATIVE [facility] Comment on above: Performed By: #### D RUGRPD #### [facility] [address] [address] [address] Renny Azevedo MTD Negative Normal NEGATIVE [facility] Comment on above: Performed By: #### D RUGRPD #### [facility] [address] [place] [address] Dr. Renny Azevedo OPI Negative Normal NEGATIVE [facility] Comment on above: Performed By: #### D RUGRPD #### [facility] [address] [place] [address] Dr. Renny Azevedo OXY Negative Normal NEGATIVE [facility] Comment on above: Performed By: #### D RUGRPD #### [facility] [address] [place] [address] Dr. Renny Azevedo PCP Negative Normal NEGATIVE [facility] Comment on above: Performed By: #### D RUGRPD #### [facility] [address] [place] [address] Dr. Renny Azevedo PPX Negative Normal NEGATIVE [facility] Comment on above: Performed By: #### D RUGRPD #### [facility] [address] [place] [address] Dr. Renny Azevedo TCA Negative Normal NEGATIVE [facility] Comment on above: Performed By: #### D RUGRPD #### [facility] [address] [place] [address] Dr. Renny Azevedo THC Negative Normal NEGATIVE [facility] Comment on above: Performed By: #### D RUGRPD #### [facility] [address] [place] [address] Dr. Renny Azevedo ETHANOL (BLD ALC)on 11-24-19 23 ALC NOTE NOTE: 80 mg/dl is th e legal limit for a blood alcohol level Normal [facility] Comment on above: Performed By: #### E TH #### [facility] [address] [place] [address] Dr. Renny Azevedo Ethanol [Mass/Vol] 169 mg/dL Normal [facility] Comment on above: Performed By: #### E TH #### [facility] [address] [place] [address] Dr. Renny Azevedo ALC NOTE NOTE: 80 mg/dl is th e legal limit for a blood alcohol level Normal [facility] Comment on above: Performed By: #### S ALYC, ACET, CMP, ETH #### [facility] [address] [place] [address] Dr. Renny Azevedo Ethanol [Mass/Vol] 239 mg/dL Normal [facility] Comment on above: Performed By: #### S ALYC, ACET, CMP, ETH #### [facility] [address] [place] [address] Dr. Renny Azevedo PROF 14(COMP METB)on 023 Albumin [Mass/Vol] 4.2 g/dL Normal 3.4-5.0 [facility] Comment on above: Performed By: #### S ALYC, ACET, CMP, ETH #### [facility] [address] [place] [address] Dr. Renny Azevedo Albumin/Globulin [Mass ratio] 1.3 {ratio} Normal [facility] Comment on above: Performed By: #### S ALYC, ACET, CMP, ETH #### [facility] [address] [place] [address] Dr. Renny Azevedo ALP [Catalytic activity/Vol] 99 U/L Normal 46-116 [facility] Comment on above: Performed By: #### S ALYC, ACET, CMP, ETH #### [facility] [address] [place] [address] Dr. Renny Azevedo ALT [Catalytic activity/Vol] 157 U/L Critically high 16-63 [facility] Comment on above: Performed By: #### S ALYC, ACET, CMP, ETH #### [facility] [address] [address] [address] Renny Azevedo Anion gap [Moles/Vol] 10.0 mmol/L Normal [facility] Comment on above: Performed By: #### S ALYC, ACET, CMP, ETH #### [facility] [address] [address] [address] Renny Azevedo AST [Catalytic activity/Vol] 362 U/L Critically high 15-37 [facility] Comment on above: Performed By: #### S ALYC, ACET, CMP, ETH #### [facility] [address] [address] [address] Renny Azevedo Bilirubin [Mass/Vol] 0.3 mg/dL Normal 0.2-1.0 [facility] Comment on above: Performed By: #### S ALYC, ACET, CMP, ETH #### [facility] [address] [address] [address] Renny Azevedo Calcium [Mass/Vol] 8.7 mg/dL Normal 8.5-10.1 [facility] Comment on above: Performed By: #### S ALYC, ACET, CMP, ETH #### [facility] [address] [address] [address] Renny Azevedo Chloride [Moles/Vol] 92 mmol/L Critically low 98-107 [facility] Comment on above: Performed By: #### S ALYC, ACET, CMP, ETH #### [facility] [address] [place] [address] Dr. Renny Azevedo CO2 [Moles/Vol] 30.4 mmol/L Normal 21.0-32.0 [facility] Comment on above: Performed By: #### S ALYC, ACET, CMP, ETH #### [facility] [address] [place] [address] Dr. Renny Azevedo Creatinine [Mass/Vol] 1.60 mg/dL Critically high 0.70-1.30 [facility] Comment on above: Performed By: #### S ALYC, ACET, CMP, ETH #### [facility] [address] [place] [address] Dr. Renny Azevedo EGFR-AF SAMOAN 53 mL/min/1.73m2 Critically low >=60 [facility] Comment on above: Performed By: #### S ALYC, ACET, CMP, ETH #### [facility] [address] [place] [address] Dr. Renny Azevedo EGFR-NON AF SAMOAN 44 mL/min/1.73m2 Critically low >=60 [facility] Comment on above: Performed By: #### S ALYC, ACET, CMP, ETH #### [facility] [address] [place] [address] Dr. Renny Azevedo Globulin (S) [Mass/Vol] 3.2 g/dL Normal [facility] Comment on above: Performed By: #### S ALYC, ACET, CMP, ETH #### [facility] [address] [place] [address] Dr. Renny Azevedo Glucose [Mass/Vol] 82 mg/dL Normal 74-106 [facility] Comment on above: Performed By: #### S ALYC, ACET, CMP, ETH #### [facility] [address] [address] [address] Renny Azevedo Potassium [Moles/Vol] 3.4 mmol/L Critically low 3.5-5.1 [facility] Comment on above: Performed By: #### S ALYC, ACET, CMP, ETH #### [facility] [address] [place] [address] Dr. Renny Azevedo Protein [Mass/Vol] 7.4 g/dL Normal 6.4-8.2 [facility] Comment on above: Performed By: #### S ALYC, ACET, CMP, ETH #### [facility] [address] [address] [address] Renny Azevedo Sodium [Moles/Vol] 129 mmol/L Critically low 136-145 [facility] Comment on above: Performed By: #### S ALYC, ACET, CMP, ETH #### [facility] [address] [place] [address] Dr. Renny Azevedo Urea nitrogen [Mass/Vol] 17.0 mg/dL Normal 7.0-18.0 [facility] Comment on above: Performed By: #### S ALYC, ACET, CMP, ETH #### [facility] [address] [place] [address] Dr. Renny Azevedo Urea nitrogen/Creatinine [Mass ratio] 10.6 mg/mg Normal [facility] Comment on above: Performed By: #### S ALYC, ACET, CMP, ETH #### [facility] [address] [place] [address] Dr. Renny Azevedo SALICYLATEon 11-24-2022 SALICYLATE 4.7 mg/dL Normal <=19.9 [facility] Comment on above: Performed By: #### S ALYC, ACET, CMP, ETH #### [facility] [address] [place] [address] LUMBAR SPINE WO [...] by:VANESA Tavaresigned by:Jay Gross MD10/14/18Final result Normal [facility] DISCHARGE SUMMARYon 02-06-20 DISCHARGE SUMMARY [address] [id number] DISCHARGE SUMMARYPATIENT NAME: AARON OLIVAREZ : 1960MED REC NO: [id number] ROOM: 0130ACCOUNT NO: [id number] ADMIT DATE: 01/29/2018PROVIDER: Elian Gladysurti DISCH DATE:HISTORY [...] . With this, [facility] is [facility] [place].PAST PSYCHIATRIC HISTORY: History of major depression and [...] patient [facility]. [facility]ELIAN INDURTID: 02/05/2018 9:02:31 KIMBERLY/[email or web address]_TJob#: [id number] Doc#: [id number]: Normal [facility] CBC with Diffon 01-30-2018 Abs. Basophil 0.00 k/uL Normal 0.0-0.2 [facility] Comment on above: Performed By: #### C P, LIPR, TSHX, CDP ####[facility] [place] [address] #### T3, T4 ####[address] [place] [address] Abs.Neutrophil (Seg) 1.83 k/uL Normal 1.3-9.1 [facility] Comment on above: Performed By: #### C P, LIPR, TSHX, CDP ####[address] [place] [address] #### T3, T4 ####[address] [address] Basophils/100 WBC Auto (Bld) 0 % Normal 0-2 [facility] Comment on above: Performed By: #### C P, LIPR, TSHX, CDP ####[facility] [place] [address] #### T3, T4 ####[address] [address] Blood morphology Normal Normal [facility] Comment on above: Result Comment: Perf ormed at [facility] [address] [place] [address] Performed By: #### C P, LIPR, TSHX, CDP ####[address] [address] #### T3, T4 ####[address] [address] Eosinophils 0.04 10*3/uL Normal 0.0-0.4 [facility] Comment on above: Performed By: #### C P, LIPR, TSHX, CDP ####[address] [address] #### T3, T4 ####[address] [address] Eosinophils/100 leukocytes 1 % Normal 0-4 [facility] Comment on above: Performed By: #### C P, LIPR, TSHX, CDP ####[address] [address] #### T3, T4 ####[address] [address] Lymphocytes 1.87 10*3/uL Normal 1.0-4.8 [facility] Comment on above: Performed By: #### C P, LIPR, TSHX, CDP ####[facility] [place] [address] #### T3, T4 ####[address] [address] Lymphocytes/100 leukocytes 48 % High 24-44 [facility] Comment on above: Performed By: #### C P, LIPR, TSHX, CDP ####[facility] [place] [address] #### T3, T4 ####[address] [address] Monocytes 0.16 10*3/uL Normal 0.1-1.3 [facility] Comment on above: Performed By: #### C P, LIPR, TSHX, CDP ####[facility] [place] [address] #### T3, T4 ####[address] [address] Monocytes/100 leukocytes 4 % Normal 1-7 [facility] Comment on above: Performed By: #### C P, LIPR, TSHX, CDP ####[facility] [place] [address] #### T3, T4 ####[address] [address] Neutrophil (Seg) 47 % Normal 36-66 [facility] Comment on above: Performed By: #### C P, LIPR, TSHX, CDP ####[address] [address] #### T3, T4 ####[address] [place] [address] Erythrocyte distribution width Auto Ratio (RBC) 13.8 % Normal 11.5-14.9 [facility] Comment on above: Performed By: #### C P, LIPR, TSHX, CDP ####[address] [address] #### T3, T4 ####[address] [address] Erythrocytes (RBC) 4.72 10*6/uL Normal 4.5-5.9 [facility] Comment on above: Performed By: #### C P, LIPR, TSHX, CDP ####[address] [address] #### T3, T4 ####[address] [address] Hematocrit (HCT) 42.2 % Normal 41-53 [facility] Comment on above: Performed By: #### C P, LIPR, TSHX, CDP ####[address] [address] #### T3, T4 ####[address] [address] Hemoglobin mass conc (Bld) 13.9 g/dL Normal 13.5-17.5 [facility] Comment on above: Performed By: #### C P, LIPR, TSHX, CDP ####[address] [address] #### T3, T4 ####[address] [address] MCH 29.6 pg Normal 26-34 [facility] Comment on above: Performed By: #### C P, LIPR, TSHX, CDP ####[address] [address] [place] [address] #### T3, T4 ####[address] [address] MCHC mass conc (RBC) 33.0 g/dL Normal 31-37 [facility] Comment on above: Performed By: #### C P, LIPR, TSHX, CDP ####[facility] [place] [address] #### T3, T4 ####[address] [address] MCV 89.5 fL Normal 80-100 [facility] Comment on above: Performed By: #### C P, LIPR, TSHX, CDP ####[address] [address] #### T3, T4 ####[address] [address] Platelet mean volume (PMV) 7.3 fL Normal 6.0-12.0 [facility] Comment on above: Performed By: #### C P, LIPR, TSHX, CDP ####[address] [address] #### T3, T4 ####[address] [address] Platelets 198 10*3/uL Normal 150-450 [facility] Comment on above: Performed By: #### C P, LIPR, TSHX, CDP ####[address] [address] #### T3, T4 ####[address] [address] WBC (Leukocytes) 3.9 10*3/uL Normal 3.5-11.0 [facility] Comment on above: Performed By: #### C P, LIPR, TSHX, CDP ####[address] [address] #### T3, T4 ####[address] [address] Auto Diff Performed NOT REPORTED Normal [facility] Comment on above: Performed By: #### C P, LIPR, TSHX, CDP ####[address] [address] #### T3, T4 ####[address] [address] Erythrocyte morphology NOT REPORTED Normal [facility] Comment on above: Performed By: #### C P, LIPR, TSHX, CDP ####[address] [address] #### T3, T4 ####[address] [address] Erythrocytes (RBC) NOT REPORTED Normal [facility] Comment on above: Performed By: #### C P, LIPR, TSHX, CDP ####[address] [address] #### T3, T4 ####[address] [address] Granulocytes/100 WBC (Bld) NOT REPORTED Normal 0.00-0.30 [facility] Comment on above: Performed By: #### C P, LIPR, TSHX, CDP ####[address] [address] #### T3, T4 ####[address] [address] Immature granulocytes #/vol (Bld) NOT REPORTED Normal 0 [facility] Comment on above: Performed By: #### C P, LIPR, TSHX, CDP ####[address] [address] #### T3, T4 ####[address] [place] [address] Platelets NOT REPORTED Normal [facility] Comment on above: Performed By: #### C P, LIPR, TSHX, CDP ####[address] [address] #### T3, T4 ####[address] [place] [address] WBC Morphology NOT REPORTED Normal [facility] Comment on above: Performed By: #### C P, LIPR, TSHX, CDP ####[address] [address] #### T3, T4 ####[address] [place] [address] Comp Metabolic Profon 2017 (cont.) Normal [facility] Comment on above: Result Comment: Aver age GFR for 50-59 years old: 93 mL/min/1.73sq mChronic Kidney Disease: <60 mL/min/1.73sq mKidney failure: <15 mL/min/1.73sq meGFR calculated using average adult body mass. Additional eGFR calculator available at:http://www.[employer].com/multiple_crcl_2012.htmPerformed at [facility] [address] [place] [address] Performed By: #### C P, LIPR, TSHX, CDP ####[address] [place] [address] #### T3, T4 ####[address] [address] Alanine aminotransferase (ALT) 11 U/L Normal 5-41 [facility] Comment on above: Performed By: #### C P, LIPR, TSHX, CDP ####[address] [address] #### T3, T4 ####[address] [address] Albumin 3.6 g/dL Normal 3.5-5.2 [facility] Comment on above: Performed By: #### C P, LIPR, TSHX, CDP ####[address] [place] [address] #### T3, T4 ####[address] [address] Alkaline Phos 104 U/L Normal 40-129 [facility] Comment on above: Performed By: #### C P, LIPR, TSHX, CDP ####[address] [place] [address] #### T3, T4 ####[address] [address] Anion gap 7 mmol/L Low 9-17 [facility] Comment on above: Performed By: #### C P, LIPR, TSHX, CDP ####[address] [place] [address] #### T3, T4 ####[address] [address] Aspartate aminotransferase (AST) 13 U/L Normal <40 [facility] Comment on above: Performed By: #### C P, LIPR, TSHX, CDP ####[address] [place] [address] #### T3, T4 ####[address] [address] Bilirubin Ql (U) 0.26 mg/dL Low 0.3-1.2 [facility] Comment on above: Performed By: #### C P, LIPR, TSHX, CDP ####[address] [address] #### T3, T4 ####[address] [address] Calcium 8.6 mg/dL Normal 8.6-10.4 [facility] Comment on above: Performed By: #### C P, LIPR, TSHX, CDP ####[address] [address] #### T3, T4 ####[address] [address] Chloride 106 mmol/L Normal 98-107 [facility] Comment on above: Performed By: #### C P, LIPR, TSHX, CDP ####[address] [address] #### T3, T4 ####[address] [address] CO2 29 mmol/L Normal 20-31 [facility] Comment on above: Performed By: #### C P, LIPR, TSHX, CDP ####[address] [address] #### T3, T4 ####[address] [address] Creatinine 1.01 mg/dL Normal 0.70-1.20 [facility] Comment on above: Performed By: #### C P, LIPR, TSHX, CDP ####[facility] [place] [address] #### T3, T4 ####[address] [address] eGFR (non-black) mL/min/{1.73_m2} Normal >60 [facility] Comment on above: Performed By: #### C P, LIPR, TSHX, CDP ####[facility] [place] [address] #### T3, T4 ####[address] [address] Glucose mass conc 100 mg/dL High 70-99 [facility] Comment on above: Performed By: #### C P, LIPR, TSHX, CDP ####[address] [address] #### T3, T4 ####[address] [address] Potassium molar conc 4.1 mmol/L Normal 3.7-5.3 [facility] Comment on above: Performed By: #### C P, LIPR, TSHX, CDP ####[address] [address] #### T3, T4 ####[address] [address] Protein 5.9 g/dL Low 6.4-8.3 [facility] Comment on above: Performed By: #### C P, LIPR, TSHX, CDP ####[address] [address] #### T3, T4 ####[address] [place] [address] Sodium 142 mmol/L Normal 135-144 [facility] Comment on above: Performed By: #### C P, LIPR, TSHX, CDP ####[facility] [place] [address] [place] [address] #### T3, T4 ####[facility] [place] [address] Urea nitrogen 19 mg/dL Normal 6-20 [facility] Comment on above: Performed By: #### C P, LIPR, TSHX, CDP ####[facility] [place] [address] [place] [address] #### T3, T4 ####[facility] [place] [address] Albumin/Globulin Ratio NOT REPORTED Normal 1.0-2.5 [facility] Comment on above: Performed By: #### C P, LIPR, TSHX, CDP ####[address] [place] [address] #### T3, T4 ####[facility] [place] [address] BUN/CRE Ratio NOT REPORTED Normal -20 [facility] Comment on above: Performed By: #### C P, LIPR, TSHX, CDP ####[address] [place] [address] #### T3, T4 ####[facility] [place] [address] Staging: NOT REPORTED Normal [facility] Comment on above: Performed By: #### C P, LIPR, TSHX, CDP ####[facility] [place] [address] [place] [address] #### T3, T4 ####[facility] [place] [address] Lipid Profileon 01-30-2018 Cholesterol 172 mg/dL Normal <200 [facility] Comment on above: Result Comment: Chol esterol Guidelines: <200 Desirable 200-240 Borderline >240 Undesirable Performed By: #### C P, LIPR, TSHX, CDP ####[facility] [place] [address] #### T3, T4 ####[address] [address] Cholesterol to HDL Ratio 3.4 {ratio} Normal <5 [facility] Comment on above: Performed By: #### C P, LIPR, TSHX, CDP ####[address] [address] #### T3, T4 ####[address] [address] HDL Cholesterol 50 mg/dL Normal >40 [facility] Comment on above: Result Comment: HDL Guidelines: <40 Undesirable 40-59 Borderline >59 Desirable Performed By: #### C P, LIPR, TSHX, CDP ####[address] [place] [address] #### T3, T4 ####[address] [address] LDL Cholesterol 93 mg/dL Normal 0-130 [facility] Comment on above: Result Comment: LDL Guidelines: <100 Desirable 100-129 Near to/above Desirable 130-159 Borderline >159 UndesirableDirect (measured) LDL and calculated LDL are not interchangeable tests. Performed By: #### C P, LIPR, TSHX, CDP ####[facility] [place] [address] #### T3, T4 ####[address] [address] Triglyceride 146 mg/dL Normal <150 [facility] Comment on above: Result Comment: Trig lyceride Guidelines: <150 Desirable 150- 199 Borderline 200-499 High >499 Very high Based on AHA Guidelines for fasting triglyceride, August 2012.Performed at [facility] [address] [place] [address] Performed By: #### C P, LIPR, TSHX, CDP ####[facility] [facility] [place] [address] [place] [address] #### T3, T4 ####[address] [address] Cholesterol in VLDL mass conc NOT REPORTED Normal 12-12 [facility] Comment on above: Performed By: #### C P, LIPR, TSHX, CDP ####[address] [place] [address] #### T3, T4 ####[address] [address] TSH w/reflex to FT4on 2017 Thyroid stimulating hormone (TSH) 1.17 m[IU]/L Normal 0.30-5.00 [facility] Comment on above: Result Comment: Perf ormed at [facility] [address] [place] [address] Performed By: #### C P, LIPR, TSHX, CDP ####[address] [address] #### T3, T4 ####[address] [address] Thyroxine T4on 01-30-2018 Thyroxine (T4) 5.1 ug/dL Normal 4.5-12.0 [facility] Comment on above: Result Comment: Perf ormed at [place] [id number] [place] [address] Performed By: #### C P, LIPR, TSHX, CDP ####[address] [address] #### T3, T4 ####[address] [address] Triiodothyronine T3on 2017 Triiodothyronine T3 103 ng/dL Normal 80-200 [facility] Comment on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 Adm Date: 4 Loc: Room: [address] [place] [address]: Kiko Maldonado MD Copies to: [...] He presented to the emergency department at [facility] on May 01, with complaints of [...] <Electronically signed by Kiko Maldonado MD> 05/06/24 1422 [facility] Work Phone: 1(888) 506-771306-24-2024 Progress note Author Thanh Paris [facility] May 06, 2024 10:16am Note Date/Time May 06, 2024 10:1 6am [facility] [address] [place] [address] Pulmonology Progress Note Signed Patient: Aaron Olivarez MR#: [id number] : 1960 Acct:[id number] Age/Sex: 63 / M Adm Date: 4 Loc: Room: [address] [place] [address] Type: ADM IN Attending Dr: Janae Jose MD Copies to: ~ Date of Service: 05/06/2024 Subjective Subjective Narrative: Patient voices no complaints at the time my evaluation. He is very interested in being discharged today as he can relax at home as opposed to being in the hospital. He knows he is in a hospital but does not know that he is at [facility] in [place]. He also knows it is 2023. Exam [...] signed by MD Thanh Paris> 05/06/24 1016 [facility] Work Phone: 1(496) 365-335606-23-2024 Progress note Author Janae Jose [facility] May 05, 2024 1:27pm Note Date/Time May 05, 2024 1:22 pm [facility] [address] [place] [address] Hospitalist Progress Note Signed Patient: Aaron Olivarez MR#: [id number] : 1960 Acct:[id number] Age/Sex: 63 / M Adm Date: 4 Loc: Room: [address] [place] [address] Type: ADM IN Attending Dr: Janae Jose [...] down without significant elevation. Suspecting type II IL from hypoxia. Echocardiogram showing preserved ejection fraction with mild LVH. No wall motion abnormality seen. EKG negative for acute ischemic changes. Documented By: Janae Jose MD 05/05/24 1319 Signed By: <Electronically signed by Janae Jose MD> 05/05/24 1327 [facility] Work Phone: 1(518) 713-541506-23-2024 Progress note Author Víctor Agrawal [facility] May 05, 2024 11:29am Note Date/Time May 05, 2024 11:2 9am [facility] [address] [place] [address] Pulmonology Progress Note Signed Patient: Aaron Olivarez MR#: [id number] : 1960 Acct:[id number] Age/Sex: 63 / M Adm Date: 4 Loc: Room: [address] [place] [address] Type: ADM IN Attending Dr: Janae Jose [...] edema, no clubbing. 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 Objective [...] signed by Víctor Agrawal MD> 05/05/24 1129 [facility] Work Phone: 1(491) 798-989906-22-2024 Progress note Author Janae Jose [facility] May 04, 2024 12:19pm Note Date/Time May 04, 2024 12:1 3pm [facility] [address] [place] [address] Hospitalist Progress Note Signed Patient: Aaron Olivarez MR#: [id number] : 1960 Acct:[id number] Age/Sex: 63 / M Adm Date: 4 Loc: Room: [address] [place] [address] Type: ADM IN Attending Dr: Janae Jose [...] down without significant elevation. Suspecting type II IL from hypoxia. Echocardiogram showing preserved ejection fraction with mild LVH. No wall motion abnormality seen. Negative for acute ischemic changes. Documented By: Janae Jose MD 05/04/241209 Signed By: <Electronically signed by Janae Jose MD> 05/04/24 1212 [facility] Work Phone: 1(848) 406-646506-22-2024 Progress note Author Víctor Agrawal 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 No focal deficits Objective Intake [...] <Electronically signed by Víctor Agrawal MD> 05/03/24 3829 [facility] Work Phone: 1(211) 834-681706-21-2024 Progress note Author Janae Jose [facility] May 03, 2024 12:57pm Note Date/Time May 03, 2024 12:5 7pm [facility] [address] [place] [address] Hospitalist Progress Note Signed Patient: Aaron Olivarez MR#: [id number] : 1960 Acct:[id number] Age/Sex: 63 / M Adm Date: 4 Loc: Room: [address] [place] [address] Type: ADM IN Attending Dr: Janae Jose [...] down without significant elevation. Suspecting type II IL from hypoxia. Pending echocardiogram to assess LV function and wall motion. Will obtain twelve-lead EKG. Documented By: Janae Jose MD 05/03/24 9246 Signed By: <Electronically signed by Janae Jose MD> 05/03/[address] [place] [address] Ctr Work Phone: 1(228) 652-833206-20-2024 Progress note Author Janae Jose [facility] May 02, 2024 1:49pm Note Date/Time May 02, 2024 1:49 pm [facility] [address] [place], [place] [address] Event Note Signed Patient: Aaron Olivarez MR#: [id number] : 1960 Acct:[id number] Age/Sex: 63 / M Adm Date: 4 Loc: Room: [address] [place] [address] Type: ADM IN Attending Dr: Janae Jose [...] <Electronically signed by Janae Jose MD> 05/02/24 [facility]9 [facility] Work Phone: 1(201) 865-300006-20-2024 Consult note Author Víctor Agrawal [facility] May 02, 2024 1:47pm Note Date/Time May 02, 2024 1:42 pm [facility] [address] [place], [place] [address] Pulmonology Consult Note Signed Patient: Aaron Olivarez MR#: [id number] : 1960 Acct:[id number] Age/Sex: 63 / M Adm Date: 4 Loc: 4C Room: [address] [place] [address] Type: ADM IN Attending Dr: Janae Jose [...] and history of hypertension was transferred from [place] ED directly into ICU. Apparently, patient was experiencing productive cough with thick yellow phlegm and increased shortness of breath prior to his presentation to [place] ED. Patient was found by familylethargic and difficult to arouse, oxygen saturation was 70% on room air, venousblood gas showed pCO2 of 80 with pH of 7.32. Patient refused BiPAP. Chest CT angiogram reported negative for PE, showed right lower lobe consolidation consistent with pneumonia. 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 May 02, 2024 7:12am Note Date/Time May 02, 2024 7:11 am [facility] [address] [place] [address] Hospitalist H&P Signed Patient: Aaron Olivarez MR#: [id number] : 1960 Acct:[id number] Age/Sex: 63 / M Adm Date: 4 Loc: Room: [address] [place] [address] Type: ADM IN Attending Dr: Janae Jose MD Copies to: MD Sulaiman Ruggiero, DO Janae Jose MD~ HPI DATE OF EXAMINATION: 05/01/24 CHIEF COMPLAINT: cough, dyspnea, altered mental status HISTORY OF PRESENT ILLNESS: 63 year old man with history of HTN, COPD, tobacco abuse who presented to [place] ED with the above complaints. Per the patient for 2-3 days prior to admission he was having a cough productiveof thick yellow sputum and increasing dyspnea with exertion. On the date of presentation family members went to see the patient and found that he was lethargic and difficult to arouse so he was brought to [place] ED for evaluation. On arrival there pulse [...] negative except as noted in the HPI [facility] Social History Smoking Status: Heavy tobacco [...] % (Auto) 7.8 % (.) 05/02/24 04:20 [place] % (Auto) 8.2 % (.) 05/02/24 04:20 Eos % (Auto) 0.0 % (.) 05/02/24 04:20 Baso % (Auto) 0.2 % (.) 05/02/24 04:20 Nucleat RBC Rel Count 0.2 /100 WBC (0-0.5) 05/02/24 04:20 Neut # (Auto) 6.3 x10E3/uL (1.8-7.7) 05/02/24 04:20 Lymph # (Auto) 0.6 x10E3/uL (1.00-4.8) L 05/02/24 04:20 [place] # (Auto) 0.6 x10E3/uL (0.0-0.8) 05/02/24 04:20 [...] signed by Magdy Douglass MD> 05/02/24 0712 [facility] Work Phone: Consult note Author Patricio Galaviz [facility] May 06, 2024 1:01pm Note Date/Time May 06, 2024 1:01 pm [facility] [address] [place] [address] Physiatry (Rehab) Consult Note Signed Patient: Aaron Olivarez MR#: [id number] : 1960 Acct:[id number] Age/Sex: 63 / M Adm Date: 4 Loc: Room: 6J7876-3 Type: ADM IN Attending Dr: Kiko Maldonado [...] negative unless noted below or in HPI [facility] Medical History Heavy smoker Heroin use H/O ETOH abuse COPD (chronic obstructive pulmonary disease) Social History Smoking Status: Heavy tobacco smoker Social History Comments: Moved from [place] to [place] to live with son, Lamin. Meds Medications [...] chart, including current orders, allied health and data security consultant notes, labs/imaging and performed fairbanks elements of exam and I formulated the plan of care and facilitated the medical decision making. I completed a substantive portion of this encounter, the medical decision making portion of this note in its entirety, including Allied health note review, nursing note review, data security consultant note review, discussion with nursing and case management, and more than 50% of my time was spent on counseling and coordination of care, time spent 60 minutes Documented By: Patricio Galaviz MD 05/06/24 1251 Signed By: <Electronically signed by Patricio Galaviz MD> 05/06/24 1301 [facility] Work Phone: Consult note Author Julito Mosley [facility] Note Date/Time November 18, 2024 4: 27pm [facility] [address] [place] [address] Cardiology Consult Note Signed Patient: Aaron Olivarez MR#: [id number] : 1960 Acct:[id number] Age/Sex: 64 / M Adm Date: 5 Loc: Room: [address] [place] [address] Type: ADM INOo Attending Dr: Yamila Donald [...] negative unless noted below or in HPI [facility] Medical History Heavy smoker Heroin use H/O ETOH abuse COPD (chronic obstructive pulmonary disease) Social History Smoking Status: Unknown if ever smoked Substance Use Type: Marijuana, Heroin and Methamphetamine Social History Comments: Moved from [place] to [place] to live with son, Lamin. Meds Medications [...] x10E3/uL Lymph # (Auto) 1.4 (1.00-4.8) x10E3/uL [place] # (Auto) 0.6 (0.0-0.8) x10E3/uL Eos # [...] @ 70 1000 / 1000 mls/hr IV .[id number] [facility]BY Rx#: [id number] levETIRAcetam 500 mg In 105 / 105 Dextrose 5 % in Water 100 ml @ 420 mls/hr IV BID CORBY Rx#: [id number] Output: Urine 500 / 500 Other: # [...] signed by Julito Mosley MD> 11/18/24 1627 [facility] Work Phone: Consult note Author Neville Bush [facility] Note Date/Time November 18, 2024 5: 44pm [facility] [address] [place] [address] Neurology Consult Note Signed Patient: Aaron Olivarez MR#: [id number] : 1960 Acct:[id number] Age/Sex: 64 / M Adm Date: 5 Loc: Room: [address] [place] [address] Type: ADM IN Attending Dr: Yamila Donald MD Copies to: DO Sulaiman Mosquera DO Marwan Wassouf, MD~ HPI Consult Date: 11/18/24 Press Machine Feeder: Neville Bush DO [facility] Medical History Heavy smoker Heroin use H/O ETOH abuse COPD (chronic obstructive pulmonary disease) Social History Smoking Status: Unknown if ever smoked Substance Use Type: Marijuana, Heroin and Methamphetamine Social History Comments: Moved from [place] to [place] to live with son, Lamin. Meds Medications [...] Dung Chakraborty M.D.11/17/2024 8:43 AM Dictation Location: [facility]-17 Head CTA 11/17/24 08:25 IMPRESSION: No evidence of focal stenosis, aneurysmal dilatation, dissection or occlusion. No evidence of acute traumatic injury. The cervical spine and upper thoracic spine are grossly intact. Impression dictated by: Dung Chakraborty M.D.11/17/2024 8:59 AM Dictation Location: [place] [address] Chest X-Ray 11/17/24 12:57 IMPRESSION: No acute cardiopulmonary pathology. Impression dictated by: Dung Chakraborty M.D.11/17/2024 1:26 PM Dictation Location: [place] [address] Assessment/Plan (1) Seizure: Plan CONSULT REASON: Seizure, [...] signed by Neville Bush DO> 11/18/24 1744 [facility] Work Phone: Evaluation note* [...] cute Tobacco abuse acute Uncontrolled hypertension ac lime [facility] Work Phone: Progress note Author Yamila Donald [facility] Note Date/Time November 19, 2024 3: 10am [facility] [address] [place] [address] Hospitalist Progress Note Signed Patient: Aaron Olivarez MR#: [id number] : 1960 Acct:[id number] Age/Sex: 64 / M Adm Date: 5 Loc: Room: [address] [place] [address] Type: ADM IN Attending Dr: Yamila Donald [...] Lactated Ringers IV 11/18/24 17:34 70 mls/hr .[id number] CORBY Administration Levetiracetam 500 mg/ Dextrose 105 [...] signed by Yamila Donald MD> 11/19/24 0310 [facility] Work Phone: Progress note Author Neville Bush [facility] Note Date/Time November 19, 2024 6: 02pm [facility] [address] [place] [address] Neurology Progress Note Signed Patient: Aaron Olivarez MR#: [id number] : 1960 Acct:[id number] Age/Sex: 64 / M Adm Date: Loc: Room: [address] [place] [address] Type: ADM IN Attending Dr: Yamila Donald [...] <Electronically signed by Neville Bush DO> 11/19/24 5049 [facility] Work Phone: Progress note Author Yamila Donald [facility] Note Date/Time November 20, 2024 3: 02am [facility] [address] [place] [address] Hospitalist Progress Note Signed Patient: Aaron Olivarez MR#: [id number] : 1960 Acct:[id number] Age/Sex: 64 / M Adm Date: 5 Loc: Room: [address] [place] [address] Type: ADM IN Attending Dr: Yamila Donald [...] Tablet PO 11/18/25 08:59 Not Given DAILY [facility] Atorvastatin Calcium 40 mg 11/17/24 21:00 [...] signed by Yamila Donald MD> 11/20/24 0302 [facility] Work Phone: Progress note Author Yamila Donald [facility] Note Date/Time November 20, 2024 7: 21pm [facility] [address] [place] [address] Hospitalist Progress Note Signed Patient: Aaron Olivarez MR#: [id number] : 1960 Acct:[id number] Age/Sex: 64 / M Adm Date: 5 Loc: Room: [address] [place] [address] Type: ADM IN Attending Dr: Yamila Donald [...] signed by Yamila Donald MD> 11/20/24 1921 [facility] Work Phone: Reason for referral (narrative)No reason for referral [facility] Work Phone: Summary Purpose [...] November 18 1:02pm Chief Complaint 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 Date 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 June 07, 2025 8:22 am Reason for [...] section and content) DATE CREATED AUTHOR 05/01/2018 [facility] DATE CREATED AUTHOR AUTHOR'S ORGANIZ ATION 05/04/2018 [facility] DATE CREATED AUTHOR AUTHOR'S ORGANIZ ATION 05/07/2018 [facility] DATE CREATED AUTHOR AUTHOR'S ORGANIZ ATION 05/09/2018 [facility] DATE CREATED AUTHOR AUTHOR'S ORGANIZ ATION 10/23/2018 [facility] DATE CREATED AUTHOR AUTHOR'S ORGANIZ ATION 11/28/2022 [facility] DATE CREATED AUTHOR AUTHOR'S ORGANIZ ATION 07/24/2024 [facility] DATE CREATED AUTHOR AUTHOR'S ORGANIZ ATION 11/24/2024 [facility] DATE CREATED AUTHOR AUTHOR'S ORGANIZ ATION 06/10/2025 [facility] DATE CREATED AUTHOR AUTHOR'S ORGANIZ ATION 06/22/2025 [facility] Care Teams (unrecognized sec tion [...] Provider Active Start: June 07, 2025 Neville uBsh , Other Provider Active Start: June 07, 2025 Bella Cano , LEN Other Provider Active St art: June 07, 2025 Alejandra Montenegro , PMO CONSULTANT-WATER TREATMENT PLANT ENGINEER-C Other Provider Active Start: June 07, 2025 [...] 18, 2024 End: November 21, 2024 Yamila Doanld MD Attending Provider Active St art: November [...] 2024 End: November 21, 2024 Alejandra Montenegro APRN-WATER TREATMENT PLANT ENGINEER-C Other Provider Active Start: November 18, 2024 End: November 21, 2024 Team Status: Active Member Role Status Dates Sulaiman Feldman DO Primary Care Provider Active Start: November 18, 2024 Ragini Carmona DO Emergency Provider Active St art: November 18, 2024 Cahz Frey MD Admit Provider Active Start: November [...] rt: November 18, 2024 Alejandra Montenegro , PMO CONSULTANT-WATER TREATMENT PLANT ENGINEER-C Other Provider Active Start: November 18, 2024 [...] rt: November 17, 2024 Alejandra Montenegro , PMO CONSULTANT-WATER TREATMENT PLANT ENGINEER-C Other Provider Active Start: November 17, 2024 [...] BE BASED ON THE PRIMARY CLINICAL RECORDS. [facility] [employer] [facility]. provides no warranty or guarantee of the accuracy or completeness of information in this document.
--- OUTSIDE RECORDS SUMMARY | 2025-07-16 06:55 | XMS_ITS | Clinical Summary ---
Author Organization [facility] Address [address] [place] [address] Phone Care Team Providers Care Optical Engineer Name Role Phone Sulaiman Feldman Primary Care Provider [phone] Encounters Date Type Department Care Team Description 06/07/2025 Scanned Document [facility] [address] [place] [id number] Scanning, Generic Provider from Last 3 Months [...] patient's age to complete this topic Insurance [employer] MEDICARE [employer] MEDICARE Care Teams Optical Engineer Relationship Specialty Start Date End Date Sulaiman Feldman DO [address] [place] [address] PCP - General 11/29/24
--- OUTSIDE RECORDS SUMMARY | 2025-07-16 06:55 | XMS_ITS | Encounter Summary ---
Author Organization [facility] Address [address] [place] [address] Phone Care Team Providers Care Assistant Prosecuting Attorney Name Role Phone Sulaiman Feldman DO Primary Care Provider [phone] Encounter Details Date Type Department Care Team (Late st Contact Info) Description 05/02/2024 Scanned Document [facility] [address] [place] [phone] Scanning, Generic Provider Social History Tobacco Use [...] on filedocumented in this encounter Care Teams Assistant Prosecuting Attorney Relationship Specialty Start Date End Date Sulaiman Feldman DO [address] [place] [address] PCP - General 11/29/24 documented as of this encounter
--- OUTSIDE RECORDS SUMMARY | 2025-07-16 06:55 | XMS_ITS | Encounter Summary ---
Author Organization [facility] Address [address] [place] [address] Phone Care Team Providers Care Rock Duster Name Role Phone Sulaiman Feldman DO Primary Care Provider [phone] Encounter Details Date Type Department Care Team (Late st Contact Info) Description 11/17/2024 Scanned Document [facility] [address] [place] [phone] Scanning, Generic Provider Social History Tobacco Use [...] on filedocumented in this encounter Care Teams Rock Duster Relationship Specialty Start Date End Date Sulaiman Feldman DO [address] [place] [address] PCP - General 11/29/24 documented as of this encounter
--- OUTSIDE RECORDS SUMMARY | 2025-07-16 06:55 | XMS_ITS | Clinical Summary ---
Author Organization [facility] Address [address] [place] [address] Care Team Providers Care Net Developer Programmer Name Role Phone Phys, Self-Refer Or No [...] OUT OF STATE ADV PLN Care Teams Net Developer Programmer Relationship Specialty Start Date End Date Phys, Self-Refer Or No Pcp/Referring PCP - General 06/20/20
--- OUTSIDE RECORDS SUMMARY | 2025-07-16 06:55 | XMS_ITS | Clinical Summary ---
Author Organization [facility] Address [address] [place] [address] Care Team Providers Care Business Office Technology Instructor Name Role Phone Thanh Kenney DO Unavailable [phone] Social History Tobacco Use Types Packs/Day Years Used Date Smoking Tobacco: Never Assessed Sex and Gender Information Value Date Recorded Sex Assigned at Not on file Legal Sex Male 2:37 PM EST Gender Identity Not on file Sexual Orientation Not on file Plan of Treatment Not on file Insurance [employer] Care Teams Business Office Technology Instructor Relationship Specialty Start Date End Date Thanh Kenney DO [address] [place] [id number] Referring Physician Neurology 12/11/24
--- OUTSIDE RECORDS SUMMARY | 2025-07-16 06:57 | XMS_ITS | Encounter Summary ---
Author Organization [facility] tem Address [id number] [address] [place] [address] Care Team Providers Care Scientist Electronics Name Role Phone No Pcp, No Pcp Primary Care Provider Unavailabl e Encounter Details Date Type Department Care Team (Late st Contact Info) Description 09/12/2019 Telephone [facility] [address] [place] [address] Lorie Ross, JAQUAN Social History [...] on filedocumented in this encounter Care Teams Scientist Electronics Relationship Specialty Start Date End Date No Pcp, [place] [address] PCP - General Family Medicine 02/24/18 documented as of this encounter
--- OUTSIDE RECORDS SUMMARY | 2025-07-16 06:57 | XMS_ITS | Clinical Summary ---
Author Organization [facility] tem Address [id number] [address] [place] [address] Care Team Providers Care Service Order Dispatcher Name Role Phone No Pcp, No Pcp [...] ago. To send out for information from [facility] clinic to support needs. Social History Tobacco [...] Medical Devices Not on file Insurance [employer], [place] [id number] [employer] MEDIC[employer] ADVANTAGE Advance Directives * Full Code (Latest Code Status on File) Date Activated Date Inactivated Comments 02/24/2018 3:34 AM 02/26/2018 5:32 PM Care Teams Service Order Dispatcher Relationship Specialty Start Date End Date No Pcp, [place] [address] PCP - General Family Medicine 02/24/18
[2025-07-16 08:04] LABS: Hematocrit 47.5 % (42.0-54.0); Hemoglobin 15.4 g/dL (14.0-18.0); Immature Granulocytes Abs Auto 0.02 10^3/uL (0.00-0.03); Immature Granulocytes Pct Auto 0.3 % (0.0-0.5); Lymphocytes Absolute Auto 1.5 10^3/uL (1.2-3.8); Mean Corpuscular HGB Conc 32.4 g/dL (29.9-35.2); Mean Corpuscular Hemoglobin 30.7 pg (25.9-34.0); Mean Corpuscular Volume 94.8 fL (80.0-94.0); Platelet Count 173 10^3/uL (150-450); Red Blood Count 5.01 10^6/uL (4.70-6.10); White Blood Count 7.3 10^3/uL (4.0-11.0)
[2025-07-16] MEDS: ENOXAPARIN SODIUM 40 MG/0.4 ML SYRINGE SUBQ (09:00)
--- NOTE | 2025-07-16 10:00 | CM.NOTE ---
Rounds made with Dr. Hahn, discussed plan of care with pt. Pt will discharge to home today and f/u with PCP. [facility] will set up appointment prior to discharge.
--- NOTE | 2025-07-16 10:53 | SWNOTE1 ---
GLENN received a message from nurse. Pt is discharged home today, but he has been combative and irritable with nursing and staff at hospital. Nurse has called emergency contact, Damon, but he has not been able to contact anyone to transport him home. At this time it is not safe for pt to go by trips as this would be a safety risk for trips emt driver. GLENN spoke to nurse in person and we discussed having security transport. GLENN called and spoke to Maria R in administration and she gave approval for SW to call security for transport. SW called and spoke to security and they are willing to transport. GLENN updated nurse that security will transport.
[2025-07-16 11:32] LABS: Anion Gap 11.2; Blood Urea Nitrogen 19.0 mg/dL (7.0-18.0); Calcium 9.7 mg/dL (8.5-10.1); Carbon Dioxide 32.4 mmol/L (21.0-32.0); Chloride 103 mmol/L (98-107); Estimated GFR (African America >60 (>=60 mL/min/1.73m^2); Estimated GFR (Non-African Ame 57 (>=60 mL/min/1.73m^2); Glucose 96 mg/dL (74-106); Magnesium 2.3 mg/dL (1.8-2.4); Potassium 4.6 mmol/L (3.5-5.1); Sodium 142 mmol/L (136-145)
--- NOTE | 2025-07-16 13:22 | PM.DS1 ---
DS: Providers Provider Date of admission: 07/15/25 17:10 Primary care physician: Non-Staff Physician, Consults: 07/15/25 Consult to Dietitian Routine Reason for consultation: unknown Attending physician on discharge: SARI CARRENO DS: Diagnosis Discharge Diagnosis (1) Breakthrough seizure: (2) Medical non-compliance: (3) Hypoxia: (4) COPD (chronic obstructive pulmonary disease): (5) Gabo's paralysis (postepileptic): DS: Summary Hospital Course Hospital Course: Mr Trujillo is a 64-year-old male with a known seizure disorder and noncompliance who presented to hospital the afternoon of July 15 with a chief complaint of a witnessed breakthrough seizure by his friends. He had 2 further witnessed seizures here in the hospital by roughly 30 minutes, he did receive a loading dose of Keppra 4 g total IV in the emergency room, he also received 2 separate doses of 5 mg diazepam for seizure . He was admitted for breakthrough seizure. He was started on seizure precautions and also received supplemental oxygenation due to shallow respirations secondary to sedative effects of medication. He had no further seizure overnight. The following morning, July 16, the patient was awake though a little bit drowsy, he was extremely vocal towards the nursing staff and myself, he was shouting profanities At us. I attempted to confirm the presenting story and he was extremely agitated about this, he did endorse some recreational drug use though he denied which ones. When asked about alcohol intake he got extremely upset and says he has not drank in years and began cussing at me. He also endorses not taking his medications, he cannot tell me the name of his seizure medications though when I ask about Keppra he did say it sounded familiar.His urine tox urine are positive for buprenorphine, amphetamines, methamphetamines, and benzodiazepines though the benzodiazepine was likely secondary to treatment in the emergency room.His alcohol level was negative on admission. Given he was diagnosed with breakthrough seizures and noncompliance, I did feel comfortable discharging him today on p.o. Keppra 1000 mg twice daily, I did urged compliance with his medication, alcohol and recreational drug cessation however he was quite agitated. He is at high risk for readmission in the future for drug abuse/breakthrough seizures. Time Spent with Patient Time attestation: Total time spent providing and/or coordinating discharge services: Exam Narrative Exam Narrative: Full physical exam not performed secondary to patient's extreme agitation and yelling profanities. He is awake and alert, he is moving all his extremities well, the left-sided paralysis evident on admission yesterday has completely resolved. In fact he was seen throwing things this morning. He is ambulatory. He was saturating well on room air, I was able to auscultate his lungs on my morning physical exam which were clear to auscultation bilaterally. Constitutional Vital Signs, click to edit/add: Last Vital Signs Temp 98.5 F 07/15/25 19:43 Pulse 65 07/16/25 07:58 Resp 18 07/15/25 22:00 BP 175/89 H 07/16/25 04:00 Pulse Ox 92 L 07/15/25 22:00 O2 Del Method Nasal Cannula 07/15/25 22:00 O2 Flow Rate 4 07/15/25 22:00 DS: Data Data Completed and Pending Labs on day of discharge: Labs from last 24 hours 07/16/25 07/15/25 07/15/25 07:50 19:50 16:43 WBC 7.3 RBC 5.01 Hgb 15.4 Hct 47.5 MCV 94.8 H MCH 30.7 MCHC 32.4 RDW 15.4 H Plt Count 173 MPV 9.1 L Neut % (Auto) 68.6 Lymph % (Auto) 21.2 Com[place] % (Auto) 9.2 Eos % (Auto) 0.3 L Baso % (Auto) 0.4 Neut # (Auto) 5.0 Lymph # (Auto) 1.5 Comal # (Auto) 0.7 Eos # (Auto) 0.0 Baso # (Auto) 0.0 Abs Immat Gran (auto) 0.02 Imm/Tot Granulo (auto) 0.3 VBG pH VBG pCO2 Sodium 142 Potassium 4.6 Chloride 103 Carbon Dioxide 32.4 H Anion Gap 11.2 BUN 19.0 H Creatinine 1.26 Est GFR ( Amer) >60 Est GFR (Non-Af Amer) 57 L BUN/Creatinine Ratio 15.1 Glucose 96 Calcium 9.7 Magnesium 2.3 Total Bilirubin AST ALT Alkaline Phosphatase Troponin I High Sens 78.3 H* Total Protein Albumin Globulin Albumin/Globulin Ratio Urine Opiates Screen Negative Ur Buprenorphine Scrn Positive A Ur Oxycodone Screen Negative Urine Methadone Screen Negative Ur Barbiturates Screen Negative U Tricyclic Antidepress Negative Ur Phencyclidine Scrn Negative Ur Amphetamines Screen Positive A U Methamphetamines Scrn Positive A U Benzodiazepines Scrn Positive A Urine Cocaine Screen Negative U Cannabinoids Screen Negative Ethanol Quant POC Glucose 07/15/25 07/15/25 07/15/25 14:58 14:24 14:16 WBC 5.7 RBC 5.22 Hgb 15.8 Hct 48.6 MCV 93.1 MCH 30.3 MCHC 32.5 RDW 15.2 H Plt Count 199 MPV 9.2 L Neut % (Auto) 81.8 H Lymph % (Auto) 12.5 L Com[place] % (Auto) 4.4 Eos % (Auto) 0.2 L Baso % (Auto) 0.7 Neut # (Auto) 4.6 Lymph # (Auto) 0.7 L [place] # (Auto) 0.3 Eos # (Auto) 0.0 Baso # (Auto) 0.0 Abs Immat Gran (auto) 0.02 Imm/Tot Granulo (auto) 0.4 VBG pH 7.294 L VBG pCO2 67.6 H Sodium 141 Potassium 3.6 Chloride 101 Carbon Dioxide 33.5 H Anion Gap 10.1 BUN 20.0 H Creatinine 1.32 H Est GFR ( Amer) >60 Est GFR (Non-Af Amer) 54 L BUN/Creatinine Ratio 15.2 Glucose 120 H Calcium 9.1 Magnesium 2.2 Total Bilirubin 1.0 AST 38 H ALT 43 Alkaline Phosphatase 101 Troponin I High Sens 80.7 H* Total Protein 8.1 Albumin 4.5 Globulin 3.6 Albumin/Globulin Ratio 1.2 Urine Opiates Screen Ur Buprenorphine Scrn Ur Oxycodone Screen Urine Methadone Screen Ur Barbiturates Screen U Tricyclic Antidepress Ur Phencyclidine Scrn Ur Amphetamines Screen U Methamphetamines Scrn U Benzodiazepines Scrn Urine Cocaine Screen U Cannabinoids Screen Ethanol Quant <3 POC Glucose 110 H Discharge Plan Discharge Disposition: Home, Self-Care Condition: Fair Discharge Medications: New levetiracetam [Keppra] 1,000 mg tablet 1,000 mg PO BID 30 Days Qty: 60 0RF Activity: increase activity as tolerated Diet: advance to your usual diet Print Language: Swiss Patient Instructions: Recurrent Seizures in Adults (DC) Forms: Portal Instructions Follow Up Appointments: 08/01 @ 2[address] Dr. Ortiz at the [facility] [address], [place], [place] [phone] Discharge Date/Time: 07/16/25 11:04
[2025-07-18 10:12] LABS: Lamotrigine (Lamictal), Serum <1.0 ug/mL (2.0-20.0)
--- NOTE | 2025-07-18 10:48 | CM.DCFOLLOWU ---
1st attempt 07/18/25, phone was not able to receive calls at this time.
[2025-07-18 14:08] LABS: Levetiracetam (Keppra), S 34.4 ug/mL (10.0-40.0)
--- NOTE | 2025-07-21 12:02 | CM.DCFOLLOWU ---
2nd attempt 07/21/25, phone was not able to receive calls at this time.
--- NOTE | 2025-07-22 12:48 | CM.DCFOLLOWU ---
3rd attempt 07/22/25, phone was not able to receive calls at this time.
== END 2025-07-16 11:04 | disposition home or self-care (01) ==
LOC: ER 17:13 → MS 07-16 06:51
PROVIDERS: Admitting Provider Internal Medicine; Emergency Provider Student in an Organized Health Care Education/Training Program; Visit Provider Internal Medicine
DX: G40.909 Epilepsy, unspecified, not intractable, without status epilepticus (principal); R06.2 Wheezing; I21.3 ST elevation (STEMI) myocardial infarction of unspecified site; J44.9 Chronic obstructive pulmonary disease, unspecified; Z91.148 Patient's other noncompliance with medication regimen for other reason; G83.84 Todd's paralysis (postepileptic); R09.02 Hypoxemia; F10.90 Alcohol use, unspecified, uncomplicated; F15.90 Other stimulant use, unspecified, uncomplicated; Z79.899 Other long term (current) drug therapy
CPT/HCPCS: 36415; 70450; 70496; 70498; 71045; 80048; 80053; 80175; 80177; 80307; 80320; 82800; 83735; 84484; 85025; 93005; 94640; 94761; 96365; 96372; 96375; 96376; 99285; G0378; J0360; J1650; J1953; J3360; Q9967

== ENCOUNTER 2025-07-31 13:17 | Emergency (ER) | payer MEDICARE, SELFPAY ==
[2025-07-31] VITALS (29 sets, daily range): BP systolic 110–138; BP diastolic 79–96; PULSE 125–137; RESP 16; TEMP 37.3–38.4; O2SAT 89–100; BMI 20.7
--- NOTE | 2025-07-31 13:32 | ECG_ITS ---
[facility] Test Date: 2025-07-31 Pat Name: AARON OLIVAREZ Department: Room: - Gender: Male Potline Monitor: : 1960 Requested By: [id number] Order Number: [id number] Reading MD: JACKY SIU M.D. Measurements Intervals [place] Rate: 134 P: -83 TX: 172 QRS: -59 QRSD: 88 T: 116 QT: 342 QTc: 421 Interpretive Statements ATRIAL FLUTTER WITH 2:1 AV BLOCK 1570 with occasional ventricular premature complexes [address] depression, possible subendocardial injury 7300 Indeterminate axis 7500 Abnormal QRS-T angle 9150 abnormal ECG Compared to ECG 07/15/2025 14:16:04 ST (T wave) deviation now present Indeterminate axis now present Sinus rhythm no longer present Electronically Signed On 07-31-2025 18:17:21 EDT by JACKY SIU M.D.
--- NOTE | 2025-07-31 13:36 | ED_ITS ---
HPI HPI - General Adult General Chief complaint: Seizure Stated complaint: WEAKNESS Time Seen by Provider: 07/31/25 13:27 Source: patient Mode of arrival: Wheelchair Limitations: no limitations History of Present Illness HPI narrative: 64-year-old male presented after allegedly having had a seizure. No family is present but allegedly they found that he had walked outside and had a seizure. They were with him and they grabbed him and he did not fall and they put him in the car and brought him here. He has a long history of substance abuse and admits to using methamphetamine. No further history is obtainable. Related Data Previous Rx's ?Medication ?Instructions ?Recorded levetiracetam 1,000 mg tablet 1,000 mg PO BID 1 month #60 tabs 07/16/25 (Keppra) Allergies Allergy/AdvReac Type Severity Reaction Status Date / Time No Known Drug Allergies Allergy Verified 07/15/25 14:17 Opioid HPI Opioid Management Most Recent Opioid Data: Last Pain Scale 4 04/01/24, 12:20 Last MAR Pain Assessment Today, 14:30 Last ORT Total Score 12 07/15/25, 17:23 Last ORT Risk Category High Risk 07/15/25, 17:23 Ur Phencyclidine Scrn, (NEGATIVE) Negative Today, 13:55 Review of Systems ROS Narrative Not obtainable, uncooperative [facility] Medical History (Updated 07/31/25 @ 16:31 by Ap Luis MD) Breakthrough seizure ?G40.919 - Epilepsy, unspecified, intractable, without status epilepticus (ICD-10) 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) Epileptic seizure ?G40.909 - Epilepsy, unspecified, not intractable, without status epilepticus (ICD-10) COPD (chronic obstructive pulmonary disease) ?J44.9 - Chronic obstructive pulmonary disease, unspecified (ICD-10) Social History Highest level of school completed/degree received: don't know Little interest or pleasure in doing things: not at all Feeling down, depressed, or hopeless: not at all Exam Narrative Exam Narrative: Nurses note and vital signs reviewed and patient is not hypoxic. General: The patient appears well and in no apparent distress. Patient is resting comfortably on cart. Skin: Warm, dry, no pallor noted. There is no rash noted. Head: Normocephalic, atraumatic Eye: Normal conjunctiva, no drainage, EOMI. PERRL Ears, Nose, Mouth, and Throat: oral mucosa is moist. Nares patent. Cardiovascular: Regular Rate and Rhythm Respiratory: Patient is in no distress, no accessory muscle use, lungs are clear to auscultation, no wheezing, rales or rhonchi Back: non-tender GI: Normal bowel sounds, no tenderness to palpation, no masses appreciated. No rebound, guarding, or rigidity noted. Musculoskeletal: The patient has no evidence of calf tenderness, no pitting ed fouzia, symmetrical pulses noted bilaterally Neurological: Keeps his eyes closed. Answers all orientation questions correctly except he does not know why he is here. Psychiatric: Moderately uncooperative Constitutional Vital Signs, click to edit/add: Last Vital Signs Temp 99.1 F 07/31/25 15:13 Pulse 129 H 07/31/25 16:30 Resp 11 L 07/31/25 16:30 BP 131/93 H 07/31/25 17:00 Pulse Ox 100 07/31/25 17:14 O2 Del Method BIPAP 07/31/25 17:14 O2 Flow Rate 15 07/31/25 13:40 FiO2 70 07/31/25 17:14 Course Vital Signs Vital signs: Vital Signs Blood Pressure 129/80 07/31/25 13:21 Temperature 99.1 F 07/31/25 15:13 Pulse Rate 129 H 07/31/25 16:30 Respiratory Rate 11 L 07/31/25 16:30 Blood Pressure 131/93 H 07/31/25 17:00 Pulse Oximetry 100 07/31/25 17:14 Oxygen Delivery Method BIPAP 07/31/25 17:14 Oxygen Delivery Flow Rate 15 07/31/25 13:40 Fraction of Inspired Oxygen 70 07/31/25 17:14 Medical Decision Making MDM Narrative Medical decision making narrative: The patient presented after allegedly having had a seizure. He has a long history of noncompliance and substance abuse. Upon arrival he was drowsy but oriented and could tell us where he was and what year it is and his name. Subsequently he became more drowsy. He was placed on oxygen and his workup was in progress. He was found to have acute kidney injury with a BUN of 86 and a creatinine of 3.58. Troponin also came back high at 1407. Repeat is pending. Initial lactic acid was also mildly elevated at 4.3 with repeat pending. He was given 2 L of IV fluid. Blood cultures were obtained and he was given IV Zosyn. After CT brain was found to be negative he was started on IV heparin. The patient continued to become more drowsy and a blood gas was drawn and his CO2 was found to be 81 after being on BiPAP for approximately an hour. Decision was then made by me at that point to intubate. The following procedure was performed by me. The patient was given IV etomidate and initial attempts at visualizing the cords with direct laryngoscopy were not successful. I then intubated him using the glide scope with a 7.0 ET tube with visualization of the tube passing between the cords and appropriate change on t he capnometer. Bilateral breath sounds were present and post intubation x-ray showed appropriate tube placement. The tip of the cord is at the top of the aortic knob. The patient did not desaturate at any point. The patient will require ICU admission and he is excepted at [facility]. I have spoken to Dr. Jensen who accepts the patient and I will speak to the intelligence clerk there as well. No family members are here to sign consent or to discuss the case. He is appropriately stable for transfer. Differential Diagnosis Differential Diagnosis: Seizure, substance abuse, intracranial hemorrhage, CO Medical Records Medical records reviewed: Yes I reviewed the patient's medical records Lab Data Lab results reviewed: Yes I reviewed the patient's lab results Labs: Lab Results 07/31/25 07/31/25 07/31/25 Range/Units 13:25 13:30 13:55 WBC 7.0 (4.0-11.0) 10^3/uL RBC 4.91 (4.70-6.10) 10^6/uL Hgb 15.1 (14.0-18.0) g/dL Hct 46.8 (42.0-54.0) % MCV 95.3 H (80.0-94.0) fL MCH 30.8 (25.9-34.0) pg MCHC 32.3 (29.9-35.2) g/dL RDW 14.9 (11.0-15.0) % Plt Count 261 (150-450) 10^3/uL MPV 9.8 (9.5-13.5) fL Seg Neuts % (Manual) 82.0 H (43.0-75.0) Band Neutrophils % 1.0 (0-5) % Lymphocytes % (Manual) 8.0 L (20.5-60.0) % Monocytes % (Manual) 9.0 (1.7-12.0) % Eosinophils % (Manual) 0.0 L (0.9-7.0) % Basophils % (Manual) 0.0 L (0.2-2.0) % Neutrophils # (Manual) 5.74 (1.4-6.5) 10^3/uL Band Neutrophils # 0.1 (0.0-0.3) 10^3/uL Lymphocytes # (Manual) 0.56 L (1.20-3.80) 10^3/uL Monocytes # (Manual) 0.63 (0.30-0.80) 10^3/uL Eosinophils # (Manual) 0.00 (0.00-0.70) 10^3/uL Basophils # (Manual) 0.00 (0.00-0.10) 10^3/uL PT 10.6 (9.0-11.6) sec INR 1.00 APTT 28.2 (22.3-36.2) sec Puncture Site ABG pH (7.350-7.450) ABG pCO2 (35.0-45.0) mmHg ABG pO2 (80.0-100.0) mmHg ABG HCO3 (22.0-26.0) mmol/L ABG O2 Saturation % ABG Base Excess (-2.0-2.0) mmol/L Johnny Test (POSITIVE) Minute Volume FiO2 % Tidal Volume Pressure Support BiPAP Sodium 130 L (136-145) mmol/L Potassium 4.5 (3.5-5.1) mmol/L Chloride 93 L (98-107) mmol/L Carbon Dioxide 28.1 (21.0-32.0) mmol/L Anion Gap 13.4 BUN 86.0 H* (7.0-18.0) mg/dL Creatinine 3.58 H (0.70-1.30) mg/dL Est GFR ( Amer) 21 L (>=60 mL/min/1.73m^2) Est GFR (Non-Af Amer) 17 L (>=60 mL/min/1.73m^2) BUN/Creatinine Ratio 24.0 Glucose 142 H (74-106) mg/dL Lactate 4.3 H* (0.4-2.0) mmol/L Calcium 8.8 (8.5-10.1) mg/dL Total Creatine Kinase 131 (39-308) U/L Myoglobin 306 H* (16-96) ng/mL Troponin I High Sens 1407.1 H* (4.0-76.1) pg/mL Urine Color Yellow (YELLOW) Urine Clarity Clear (CLEAR) Urine pH 5.5 (5.0-9.0) Ur Specific [place] 1.025 (1.005-1.025) Urine Protein 30 A (NEG/TRACE) mg/dL Urine Glucose (UA) Negative (NEGATIVE) mg/dL Urine Ketones Negative (NEGATIVE) mg/dL Urine Occult Blood Small A (NEGATIVE) Urine Nitrite Negative (NEGATIVE) Urine Bilirubin Negative (NEGATIVE) Urine Urobilinogen 1.0 (0.2-1.0) EU/dL Ur Leukocyte Esterase Negative (NEGATIVE) Urine RBC 0-2 (0-2) #/HPF Urine WBC 0-2 A (NONE SEEN) #/HPF Ur Squamous Epith Cells Few A (NONE/RARE) #/LPF Urine Crystals None seen (None Seen) #/HPF Urine Bacteria Large A (NONE SEEN) #/HPF Urine Casts Seen A (NONE SEEN) #/LPF Hyaline Casts Few Coarse Granular Casts Few Urine Mucus None seen (NONE SEEN) Ur Culture Indicated? Yes-[facility] [place] Urine Opiates Screen Negative (NEGATIVE) Ur Buprenorphine Scrn Positive A (NEGATIVE) Ur Oxycodone Screen Negative (NEGATIVE) Urine Methadone Screen Negative (NEGATIVE) Ur Barbiturates Screen Negative (NEGATIVE) U Tricyclic Antidepress Negative (NEGATIVE) Ur Phencyclidine Scrn Negative (NEGATIVE) Ur Amphetamines Screen Positive A (NEGATIVE) U Methamphetamines Scrn Positive A (NEGATIVE) U Benzodiazepines Scrn Positive A (NEGATIVE) Urine Cocaine Screen Negative (NEGATIVE) U Cannabinoids Screen Negative (NEGATIVE) Ethanol Quant <3 mg/dL POC Glucose 131 H (74-106) mg/dL 07/31/25 07/31/25 Range/Units 15:11 16:15 WBC (4.0-11.0) 10^3/uL RBC (4.70-6.10) 10^6/uL Hgb (14.0-18.0) g/dL Hct (42.0-54.0) % MCV (80.0-94.0) fL MCH (25.9-34.0) pg MCHC (29.9-35.2) g/dL RDW (11.0-15.0) % Plt Count (150-450) 10^3/uL MPV (9.5-13.5) fL Seg Neuts % (Manual) (43.0-75.0) Band Neutrophils % (0-5) % Lymphocytes % (Manual) (20.5-60.0) % Monocytes % (Manual) (1.7-12.0) % Eosinophils % (Manual) (0.9-7.0) % Basophils % (Manual) (0.2-2.0) % Neutrophils # (Manual) (1.4-6.5) 10^3/uL Band Neutrophils # (0.0-0.3) 10^3/uL Lymphocytes # (Manual) (1.20-3.80) 10^3/uL Monocytes # (Manual) (0.30-0.80) 10^3/uL Eosinophils # (Manual) (0.00-0.70) 10^3/uL Basophils # (Manual) (0.00-0.10) 10^3/uL PT (9.0-11.6) sec INR APTT (22.3-36.2) sec Puncture Site Rr ABG pH 7.170 L* (7.350-7.450) ABG pCO2 81.5 H* (35.0-45.0) mmHg ABG pO2 108.0 H (80.0-100.0) mmHg ABG HCO3 29.7 H (22.0-26.0) mmol/L ABG O2 Saturation 97.2 % ABG Base Excess 1.2 (-2.0-2.0) mmol/L Johnny Test Positive (POSITIVE) Minute Volume 8.7 FiO2 100 % Tidal Volume 545 Pressure Support 10 BiPAP 18/8 Sodium (136-145) mmol/L Potassium (3.5-5.1) mmol/L Chloride (98-107) mmol/L Carbon Dioxide (21.0-32.0) mmol/L Anion Gap BUN (7.0-18.0) mg/dL Creatinine (0.70-1.30) mg/dL Est GFR ( Amer) (>=60 mL/min/1.73m^2) Est GFR (Non-Af Amer) (>=60 mL/min/1.73m^2) BUN/Creatinine Ratio Glucose (74-106) mg/dL Lactate 2.7 H* (0.4-2.0) mmol/L Calcium (8.5-10.1) mg/dL Total Creatine Kinase (39-308) U/L Myoglobin (16-96) ng/mL Troponin I High Sens 1460.0 H* (4.0-76.1) pg/mL Urine Color (YELLOW) Urine Clarity (CLEAR) Urine pH (5.0-9.0) Ur Specific [place] (1.005-1.025) Urine Protein (NEG/TRACE) mg/dL Urine Glucose (UA) (NEGATIVE) mg/dL Urine Ketones (NEGATIVE) mg/dL Urine Occult Blood (NEGATIVE) Urine Nitrite (NEGATIVE) Urine Bilirubin (NEGATIVE) Urine Urobilinogen (0.2-1.0) EU/dL Ur Leukocyte Esterase (NEGATIVE) Urine RBC (0-2) #/HPF Urine WBC (NONE SEEN) #/HPF Ur Squamous Epith Cells (NONE/RARE) #/LPF Urine Crystals (None Seen) #/HPF Urine Bacteria (NONE SEEN) #/HPF Urine Casts (NONE SEEN) #/LPF Hyaline Casts Coarse Granular Casts Urine Mucus (NONE SEEN) Ur Culture Indicated? Urine Opiates Screen (NEGATIVE) Ur Buprenorphine Scrn (NEGATIVE) Ur Oxycodone Screen (NEGATIVE) Urine Methadone Screen (NEGATIVE) Ur Barbiturates Screen (NEGATIVE) U Tricyclic Antidepress (NEGATIVE) Ur Phencyclidine Scrn (NEGATIVE) Ur Amphetamines Screen (NEGATIVE) U Methamphetamines Scrn (NEGATIVE) U Benzodiazepines Scrn (NEGATIVE) Urine Cocaine Screen (NEGATIVE) U Cannabinoids Screen (NEGATIVE) Ethanol Quant mg/dL POC Glucose (74-106) mg/dL Imaging Data Chest x-ray: Radiologist's impression: ITS Impressions Head CT 07/31/25 14:20 IMPRESSION: No acute bleed or midline shift. Moderate severe chronic white matter changes. Questionable loss of floyd-white differentiation right inferolateral frontal lobe noted on the axial images possibly artifact. Please correlate with exam findings. Impression dictated by: Regino Mckinley M.D. 07/31/2025 2:39 PM Dictation Location: [place] [id number] Electronically authenticated by: [id number] Y Date: 07/31/2025 14:39 Chest X-Ray 07/31/25 14:25 IMPRESSION: Bibasilar opacity given history, this could represent aspiration. Impression dictated by: Regino Mckinley M.D. 07/31/2025 2:34 PM Dictation Location: [place] [address] Electronically authenticated by: [id number] Y Date: 07/31/2025 14:34 Chest X-Ray 07/31/25 16:32 IMPRESSION: Satisfactory placement of an ET tube. Similar hazy airspace opacities are noted bilaterally. Impression dictated by: Dung Chakraborty M.D. 07/31/2025 4:39 PM [facility]ation [facility] Electronically authenticated by: [id number] Y Date: 07/31/2025 16:39 ECG Data Attestation: I personally reviewed and interpreted this ECG as follows: (EKG on my interpretation shows sinus tachycardia with a rate of 134) Critical Care Time Critical Care Time Critical Care Time: Yes Total Critical Care Time: 120 Attestation: Due to the high probability of sudden and clinically significant deterioration in the patient's condition he/she required the highest level of my preparedness to intervene urgently I provided critical care time including documentation time, medication orders and management, reevaluation, vital sign assessment, ordering and reviewing of lab tests, ordering and reviewing of x-ray studies, and admission orders. Aggregate critical care time is 120 minutes including only time during which I was engaged in work directly related to his/her care and did not include time spent treating other patients simultaneously. Discharge Plan Discharge Chief Complaint: Seizure Clinical Impression: Respiratory failure, Acute kidney injury, Polysubstance abuse, Non-ST elevation CO (NSTEMI) Patient Disposition: [facility] Time of Disposition Decision: 16:31 Discharge Location: [facility] Condition: Critical Mode of Transportation: EMS
[2025-07-31 13:49] LABS: Hematocrit 46.8 % (42.0-54.0); Hemoglobin 15.1 g/dL (14.0-18.0); Mean Corpuscular HGB Conc 32.3 g/dL (29.9-35.2); Mean Corpuscular Hemoglobin 30.8 pg (25.9-34.0); Mean Corpuscular Volume 95.3 fL (80.0-94.0); Platelet Count 261 10^3/uL (150-450); Red Blood Count 4.91 10^6/uL (4.70-6.10); White Blood Count 7.0 10^3/uL (4.0-11.0)
--- OUTSIDE RECORDS SUMMARY | 2025-07-31 13:49 | XMS_ITS | CCD ---
Author Organization [facility] Care Team Providers Care Motor Pool Clerk Name Role Phone INDURTI, ELIAN V Unavailable [...] Other Provider MD Danny Mills Other Provider [phone] MD Víctor Agrawal Other Provider HARVINDER, AHMED B Consulting Unavailable HARVINDER, AHMED B Admitting Unavailable HARVINDER AHMED B Attending Unavailable Sulaiman Feldman DO Primary Care Provider Ragini Carmona DO Emergency Provider Chaz Frey MD Admit Provider Yamila Donald MD Attending Provider [phone] Jaylin Fajardo RN Other Provider Unavailable Wojciech Horowitz MD Other Provider Julito Mosley MD Other Provider Emy Rae MD Other Provider Donna Marcelo Other Provider Unavailable Ubaldo Giles, [place] Other Provider Sivan Francois DO Other Provider Reno Hubbard MD Other Provider Thanh Kenney DO Other Provider Neville Bush DO Other Provider Bella Cano APRN Other Provider Prem PULP HOUSE SUPERVISOR-C, Janie Yates Other Provider Lan SWEEP PRESS OPERATOR-7TH GRADE TEACHER-C, Alejandra Pantoja Other Provider Sulaiman Feldman DO Primary Care Provider Ragini Carmona DO Emergency Provider [phone] Chaz Frey MD Admit Provider Yamila Donald MD Attending Provider Donna Marcelo Other Provider Unavailable Ubaldo Giles, [place] Other Provider Sivan Francois DO Other Provider Reno Hubbard MD Other Provider Thanh Kenney DO Other Provider Neville Bush DO Other Provider Bella Caon APRN Other Provider Prem TREVIÑO-C, Janie Yates Other Provider Lan SWEEP PRESS OPERATOR-7TH GRADE TEACHER-C, Alejandra Pantoja Other Provider NO PCP, NO PCP Primary Care Unavailable FREDERIC, EHAD Consulting Unavailable Sulaiman Feldman DO Primary Care Provider Usman Driver MD Admit Provider Usman Driver MD Other Provider Sciarappa, Donna Other Provider Unavailable Sivan Francois DO Other Provider Reno Hubbard MD Other Provider [phone] Thanh Kenney DO Other Provider Neville Bush DO Other Provider Bella Cano APRN Other Provider [phone] Lan SWEEP PRESS OPERATOR-7TH GRADE TEACHER-C, Alejandra Pantoja Other Provider Ratna Denton APRN Other Provider Raina NELSON, Thanh Pantoja Other Provider Tanja NELSON, Víctor Encarnacion Other Provider [phone] Crystal NELSON, Neville Rivas Other Provider Kota Carreno DO Attending Provider Kota Carreno DO Other Provider Michael Willoughby DO Other Provider Terri NELSON, Lizett Other Provider Joseph NELSON, Twin Pantoja Other Provider Cosmo NELSON, Brandy Other Provider Chris NELSON, Sherrie Grant Other Provider NAVIN DEAN Attending Unavailable NAVIN DEAN Admitting Unavailable Sulaiman Feldman Primary Care Unavailable Davian, Donna Consulting Unavailable Yamila Donald Attending Unavailable Chaz Frey Admitting Unavailable [place] Conner Consulting Unavailable Alessandro, Sivan Consulting Unavailable Reno Hubbard Consulting Unavailable Thanh Kenney Consulting Unavailab Neville Hernandez Consulting Unavailable Bella Cano Consulting Unavailable Janie Amaro Consulting Unavailable Alejandra Montenegro Consulting Unavailable Sulaiman Feldman Primary Care Unavailable Davian, Donna Consulting Unavailable Usman Driver Admitting Unavailable Usman Driver Attending Unavailable Alessandro, Sivan Consulting Unavailable Stevie, Reno Consulting Unavailable Thanh Kenney Consulting Unavailab Neville [...] terminal operator (current) drug therapy; Translations: [OTH CORRECTION CURRENT DRUG THERAPY] Onset: 11-28-2022 Episodic Other [...] Base Excess 0.2 mmol/L Normal -3.0-3.0 [facility] Comment on above: Performed By: #### P RL, HS TROP, CBC, CMP #### [address] ABG Frac Inspired O2 Normal [facility] Comment on above: Performed By: #### P RL, HS TROP, CBC, CMP #### [address] ABG Liter Flow 6L Normal [facility] Comment on above: Performed By: #### P RL, HS TROP, CBC, CMP #### [address] ABG Oxygen Content 9.8 mmol/L High 6.6-9.7 [facility] Comment on above: Performed By: #### P RL, HS TROP, CBC, CMP #### [address] ABG Oxygen Saturation 96.5 % Normal 95.0-100.0 [facility] Comment on above: Performed By: #### P RL, HS TROP, CBC, CMP #### [address] ABG PCO2 41.3 mm[Hg] Normal 35.0-45.0 [facility] Comment on above: Performed By: #### P RL, HS TROP, CBC, CMP #### [address] ABG PH 7.40 Normal 7.35-7.45 [facility] Comment on above: Performed By: #### P RL, HS TROP, CBC, CMP #### [address] ABG PO2 87.8 mm[Hg] Normal 80.0-100.0 [facility] Comment on above: Performed By: #### P RL, HS TROP, CBC, CMP #### [address] CO2 [Moles/Vol] 26.3 mmol/L Normal 23.0-27.0 [facility] Comment on above: Performed By: #### P RL, HS TROP, CBC, CMP #### [address] HCO3 (Bld) [Moles/Vol] 25.0 mmol/L Normal 23.0-29.0 [facility] Comment on above: Performed By: #### P RL, HS TROP, CBC, CMP #### [address] Oxygen Device Nasal Cannula Normal [facility] Comment on above: Performed By: #### P RL, HS TROP, CBC, CMP #### [address] Respiratory Critical Normal [facility] Comment on above: Result Comment: Crit ical Value called on: 06/07/2025 at 13:57 PERFORMED BY: [place] [address] PATHOLOGIST MOUNTER [employer]OMAT[employer] CELESTE GERMAN M.D. Performed By: #### P RL, HS TROP, CBC, CMP #### [address] VBG Draw Site Right Radial Normal [facility] Comment on above: Performed By: #### P RL, HS TROP, CBC, CMP #### [address] Complete Blood Count Auto Di ffon 06-07-2025 Basophils (Bld) [#/Vol] 0.0 10*3/uL Normal 0.0-0.2 [facility] Comment on above: Result Comment: PERF ORMED BY: [place] [address] PATHOLOGIST MOUNTER AUTOMAT[employer] CELESTE GERMAN M.D. Performed By: #### P RL, HS TROP, CBC, CMP #### [address] Basophils/100 WBC (Bld) 0.4 % Normal . [facility] Comment on above: Performed By: #### P RL, HS TROP, CBC, CMP #### [address] Eosinophils (Bld) [#/Vol] 0.0 10*3/uL Normal 0.0-0.45 [facility] Comment on above: Performed By: #### P RL, HS TROP, CBC, CMP #### [address] Eosinophils/100 WBC (Bld) 0.1 % Normal . [facility] Comment on above: Performed By: #### P RL, HS TROP, CBC, CMP #### [address] Erythrocyte distribution width (RBC) [Ratio] 15.5 % High 12.0-14.8 [facility] Comment on above: Performed By: #### P RL, HS TROP, CBC, CMP #### [address] Hematocrit (Bld) [Volume fraction] 46.4 % Normal 38.8-50.0 [facility] Comment on above: Performed By: #### P RL, HS TROP, CBC, CMP #### [address] Hemoglobin (Bld) [Mass/Vol] 15.2 g/dL Normal 13.0-17.0 [facility] Comment on above: Performed By: #### P RL, HS TROP, CBC, CMP #### [address] Lymphocytes (Bld) [#/Vol] 0.5 10*3/uL Low 1.00-4.8 [facility] Comment on above: Performed By: #### P RL, HS TROP, CBC, CMP #### [place] [id number] [place] Lymphocytes/100 WBC (Bld) 7.4 % Normal . [facility] Comment on above: Performed By: #### P RL, HS TROP, CBC, CMP #### [address] MCH (RBC) [Entitic mass] 29.6 pg Normal 27.5-35.2 [facility] Comment on above: Performed By: #### P RL, HS TROP, CBC, CMP #### [address] MCV (RBC) [Entitic vol] 90.3 fL Normal 83.5-101 [facility] Comment on above: Performed By: #### P RL, HS TROP, CBC, CMP #### [address] Mean Corpuscular HGB Conc 32.7 g/dL Normal 32.5-35.6 [facility] Comment on above: Performed By: #### P RL, HS TROP, CBC, CMP #### [address] Monocytes (Bld) [#/Vol] 0.2 10*3/uL Normal 0.0-0.8 [facility] Comment on above: Performed By: #### P RL, HS TROP, CBC, CMP #### [address] Monocytes/100 WBC (Bld) 3.3 % Normal . [facility] Comment on above: Performed By: #### P RL, HS TROP, CBC, CMP #### [address] Neutrophils (Bld) [#/Vol] 5.8 10*3/uL Normal 1.8-7.7 [facility] Comment on above: Performed By: #### P RL, HS TROP, CBC, CMP #### [address] Neutrophils/100 WBC (Bld) 88.8 % Normal . [facility] Comment on above: Performed By: #### P RL, HS TROP, CBC, CMP #### [address] NRBC% 0.1 /100{WBC} Normal 0-0.5 [facility] Comment on above: Performed By: #### P RL, HS TROP, CBC, CMP #### [address] Platelet mean volume (Bld) [Entitic vol] 6.7 fL Normal 6.6-10.1 [facility] Comment on above: Performed By: #### P RL, HS TROP, CBC, CMP #### [address] Platelets (Bld) [#/Vol] 225 10*3/uL Normal 150-450 [facility] Comment on above: Performed By: #### P RL, HS TROP, CBC, CMP #### [address] RBC (Bld) [#/Vol] 5.14 10*6/uL Normal 3.90-5.60 [facility] Comment on above: Performed By: #### P RL, HS TROP, CBC, CMP #### [address] WBC (Bld) [#/Vol] 6.6 10*3/uL Normal 4.1-10.5 [facility] Comment on above: Performed By: #### P RL, HS TROP, CBC, CMP #### [address] White Blood Count 6.6 [CFU]/mL Normal 4.1-10.5 [facility] Comment on above: Performed By: #### P RL, HS TROP, CBC, CMP #### [address] Comprehensive Metabolic Pane wilner 06-07-2025 Albumin [Mass/Vol] 4.3 g/dL Normal 3.5-5.7 [facility] Comment on above: Performed By: #### P RL, HS TROP, CBC, CMP #### [address] Albumin/Globulin [Mass ratio] 1.5 {ratio} Normal [facility] Comment on above: Performed By: #### P RL, HS TROP, CBC, CMP #### [facility] [address] ALP [Catalytic activity/Vol] 97 U/L Normal 34-104 [facility] Comment on above: Performed By: #### P RL, HS TROP, CBC, CMP #### [address] ALT [Catalytic activity/Vol] 22 U/L Normal 7-52 [facility] Comment on above: Performed By: #### P RL, HS TROP, CBC, CMP #### [address] Anion gap [Moles/Vol] 9.2 mmol/L Normal 6.0-15.0 [facility] Comment on above: Performed By: #### P RL, HS TROP, CBC, CMP #### [address] AST [Catalytic activity/Vol] 57 U/L High 13-39 [facility] Comment on above: Performed By: #### P RL, HS TROP, CBC, CMP #### [address] Bilirubin [Mass/Vol] 0.8 mg/dL Normal 0.3-1.0 [facility] Comment on above: Performed By: #### P RL, HS TROP, CBC, CMP #### [address] Calcium [Mass/Vol] 9.3 mg/dL Normal 8.6-10.3 [facility] Comment on above: Performed By: #### P RL, HS TROP, CBC, CMP #### [place] [address] [place] Chloride [Moles/Vol] 98 mmol/L Normal 98-107 [facility] Comment on above: Performed By: #### P RL, HS TROP, CBC, CMP #### [address] CO2 [Moles/Vol] 30.8 mmol/L Normal 21.0-31.0 [facility] Comment on above: Performed By: #### P RL, HS TROP, CBC, CMP #### [address] Creatinine [Mass/Vol] 1.39 mg/dL High 0.70-1.30 [facility] Comment on above: Performed By: #### P RL, HS TROP, CBC, CMP #### [address] Creatinine Clr Calc Pharmacy 51.68 Normal [facility] Comment on above: Result Comment: PERF ORMED BY: [place] [address] PATHOLOGIST MOUNTER [employer]OM[employer] CELESTE GERMAN M.D. Performed By: #### P RL, HS TROP, CBC, CMP #### [address] GFR/1.73 sq M.predicted MDRD (S/P/Bld) [Vol rate/Area] 55.911 mL/min/{1.73_m2} Normal [facility] Comment on above: Performed By: #### P RL, HS TROP, CBC, CMP #### [address] Globulin (S) [Mass/Vol] 2.9 g/dL Normal [facility] Comment on above: Performed By: #### P RL, HS TROP, CBC, CMP #### [address] Glucose [Mass/Vol] 189 mg/dL High 70-100 [facility] Comment on above: Result Comment: [place] Glucose Reference Range is dependent on time and content of last meal. Glucose of more than 200 mg/dL in a nonstressed, ambulatory subject supports the diagnosis of Diabetes Mellitus. ADA recommended reference range Performed By: #### P RL, HS TROP, CBC, CMP #### [place] [address] [place] Potassium [Moles/Vol] 4.0 mmol/L Normal 3.5-5.1 [facility] Comment on above: Performed By: #### P RL, HS TROP, CBC, CMP #### [address] Protein [Mass/Vol] 7.2 g/dL Normal 6.4-8.9 [facility] Comment on above: Performed By: #### P RL, HS TROP, CBC, CMP #### [address] Sodium [Moles/Vol] 134 mmol/L Low 136-145 [facility] Comment on above: Performed By: #### P RL, HS TROP, CBC, CMP #### [address] Urea nitrogen [Mass/Vol] 17 mg/dL Normal 7-25 [facility] Comment on above: Performed By: #### P RL, HS TROP, CBC, CMP #### [address] Drug Screen,Urineon 06-07-20 25 Amphetamine Screen,Urine Positive Normal Negative [facility] Comment on above: Performed By: #### U RDS #### [address] Barbiturate Screen,Urine Negative Normal Negative [facility] Comment on above: Performed By: #### U RDS #### [place] [address] [place] Benzodiazepines Screen,Urine Positive Normal Negative [facility] Comment on above: Performed By: #### U RDS #### [place] [address] [place] Cannabinoid Screen,Urine Positive Normal Negative [facility] Comment on above: Result Comment: Thes e are unconfirmed results and should not be used for legal purposes. Drug Cut-Off Concentration: AMPH 1000 ng/mL BHASKAR 200 ng/mL RIKKI 200 ng/mL COCM 300 ng/mL OP 300 ng/mL PCP 25 ng/mL THC 20 ng/mL PERFORMED BY: [place] [address] PATHOLOGIST MOUNTER [employer]OM[employer] CELESTE GERMAN M.D. Performed By: #### U RDS #### [address] Cocaine Screen,Urine Negative Normal Negative [facility] Comment on above: Performed By: #### U RDS #### [address] Opiate Screen,Urine Positive Normal Negative [facility] Comment on above: Performed By: #### U RDS #### [address] Phencyclidine Screen,Urine Negative Normal Negative [facility] Comment on above: Performed By: #### U RDS #### [address] ECG 12 lead ECGon 06-07-2025 ECG 12 [place] [address] Electrocardiograph Report Signed Patient: Aaron Olivarez MR#: [id number] 00 : 1960 Acct:[id number] Age/Sex: 64 / M ADM Date: 06/07/25 Loc: Room: [address] [place] [address] Type: DIS IN Attending Dr: Usman Driver [...] abnormality Abnormal ECG Confirmed by Emy Rae ([id number]) on 06/11/2025 1:57:46 PM Referred By: Electronically Signed By: Emy Rae Transcribed By: MUS Signed By Emy Rae MD 5 1357 Normal [facility] ECG 12 lead ECG [address] [place] [address] Electrocardiograph Report Signed Patient: Aaron Olivarez MR#: [id number] 00 : 1960 Acct:[id number] Age/Sex: 64 / M ADM Date: 06/07/25 Loc: Room: [address] [place] [address] Type: ADM IN Attending Dr: Usman Driver [...] injury or acute infarct Prolonged QT ACUTE GA / STEMI Abnormal ECG When compared with [...] Chisholm MD 0 06/07/25 1148 Normal [facility] Glucose Poct Glucometerson 0 06-07-2025 Commemt1 Glu2: Cleaned Meter Normal [facility] Comment on above: Result Comment: PERF ORMED BY: [place] [address] PATHOLOGIST MOUNTER [employer]OM[employer] CELESTE GERMAN M.D. Performed By: #### G GERI #### Point of Care testing , Glucose [Mass/Vol] 91 mg/dL Normal [facility] Comment on above: Result Comment: [place] Glucose Reference Range is dependent on time and content of last meal. Glucose of more than 200 mg/dL in a nonstressed, ambulatory subject supports the diagnosis of Diabetes Mellitus. Performed By: #### G LULS #### Point of Care testing , Troponin I High Sensitivityo n 06-07-2025 Troponin I High Sensitivity 32835 Off scale high 0-20 [facility] Comment on above: Result Comment: Crit ical Result [id number] Called to and read back by: JANY SANDOVAL at: 06/07/2025 17:28:45 by:[id number] The Troponin units of report have been changed to meet the Chest Pain Accreditation requirement, element EC5.M1l2. Troponin units are changed from pg/ml to ng/L. Also, the decimal is removed and results are in whole numbers. PERFORMED BY: [id number] PATHOLOGIST MOUNTER [employer] CELESTE GERMAN M.D. Performed By: #### H S TROP #### [address] Troponin I High Sensitivity 17473 Off scale high 0-20 [facility] Comment on above: Order Comment: per r n [place] wait till they sedate pt Result Comment: Crit ical Result [id number] Called to and read back by: JANY SANDOVAL at: 06/07/2025 15:32:31 by:[id number] The Troponin units of report have been changed to meet the Chest Pain Accreditation requirement, element EC5.M1l2. Troponin units are changed from pg/ml to ng/L. Also, the decimal is removed and results are in whole numbers. PERFORMED BY: [id number] PATHOLOGIST MOUNTER AUTOMAT[employer] CELESTE GERMAN M.D. Performed By: #### P RL, HS TROP, CBC, CMP #### [facility] [address] [place] [address] Troponin I High Sensitivity 6616 Off scale high 0-20 [facility] Comment on above: Order Comment: [...] results are in whole numbers. PERFORMED BY: [place] [address] PATHOLOGIST MOUNTER AUTOMAT[employer] CELESTE GERMAN M.D. Performed By: #### P RL, HS TROP, CBC, CMP #### [address] Basic Metabolic Panelon 01-0 Anion gap [Moles/Vol] 13.2 mmol/L Normal 6.0-15.0 [facility] Comment on above: Performed By: #### P RL, HS TROP, CBC, CMP #### [address] Calcium [Mass/Vol] 9.7 mg/dL Normal 8.6-10.3 [facility] Comment on above: Performed By: #### P RL, HS TROP, CBC, CMP #### [address] Chloride [Moles/Vol] 105 mmol/L Normal 98-107 [facility] Comment on above: Performed By: #### P RL, HS TROP, CBC, CMP #### [address] CO2 [Moles/Vol] 25.2 mmol/L Normal 21.0-31.0 [facility] Comment on above: Performed By: #### P RL, HS TROP, CBC, CMP #### [address] Creatinine [Mass/Vol] 0.81 mg/dL Normal 0.70-1.30 [facility] Comment on above: Performed By: #### P RL, HS TROP, CBC, CMP #### [address] Creatinine Clr Calc Pharmacy 98.46 Normal [facility] Comment on above: Performed By: #### P RL, HS TROP, CBC, CMP #### [facility] [address] [place] [address] [place] GFR/1.73 sq M.predicted MDRD (S/P/Bld) [Vol rate/Area] mL/min/{1.73_m2} Normal [facility] Comment on above: Performed By: #### P RL, HS TROP, CBC, CMP #### [facility] [address] [place] [address] [place] Glucose [Mass/Vol] 103 mg/dL High 70-100 [facility] Comment on above: Result Comment: [facility] Glucose Reference Range is dependent on time and content of last meal. Glucose of more than 200 mg/dL in a nonstressed, ambulatory subject supports the diagnosis of Diabetes Mellitus. ADA recommended reference range Performed By: #### P RL, HS TROP, CBC, CMP #### [facility] [address] Potassium [Moles/Vol] 3.4 mmol/L Low 3.5-5.1 [facility] Comment on above: Performed By: #### P RL, HS TROP, CBC, CMP #### [facility] [address] [place] [address] [place] Sodium [Moles/Vol] 140 mmol/L Normal 136-145 [facility] Comment on above: Performed By: #### P RL, HS TROP, CBC, CMP #### [facility] [address] [place] [address] [place] Urea nitrogen [Mass/Vol] 19 mg/dL Normal 7-25 [facility] Comment on above: Performed By: #### P RL, HS TROP, CBC, CMP #### [facility] [address] [place] [address] [place] Calcium [Mass/volume] in Ser um or PlasmaOrdered By: Yamila Donald on 11-19-2024 Calcium [Mass/Vol] Calcium [Mass/volume ] in Serum or Plasma 8.6-10.3 [facility] Carbon dioxide, total [Moles /volume] in Serum or PlasmaOrdered By: Yamila Donald on 11-19-2024 CO2 [Moles/Vol] Carbon dioxide, tota l [Moles/volume] in Serum or Plasma 21.0-31.0 [facility] Chloride [Moles/volume] in S andrei or PlasmaOrdered By: Yamila Donald on 11-19-2024 Chloride [Moles/Vol] Chloride [Moles/vol ume] in Serum or Plasma 98-107 [facility] Creatinine [Mass/volume] in Serum or PlasmaOrdered By: Yamila Donald on 11-19-2024 Creatinine [Mass/Vol] Creatinine [Mass/v olume] in Serum or Plasma 0.70-1.30 [facility] Erythrocyte distribution wid th Auto (RBC) [Ratio]Ordered By: Yamila Donald on 11-19-2024 Erythrocyte distribution width (RBC) [Ratio] Erythrocyte distribution width [Ratio] by Automated count 12.0-14.8 [facility] Glucose [Mass/volume] in Ser um or PlasmaOrdered By: Yamila Donald on 11-19-2024 Glucose [Mass/Vol] Glucose [Mass/volume ] in Serum or Plasma High 70-100 [facility] Comment on above: ADA recommended refe rence rangeRandom Glucose Reference Range is dependent on time and content of last meal. Glucose of more than 200 mg/dL in a nonstressed, ambulatory subject supports the diagnosis of Diabetes Mellitus. Hematocrit Auto (Bld) [Volum e fraction]Ordered By: Yamila Donald on 11-19-2024 Hematocrit (Bld) [Volume fraction] Hematocrit [Volume Fraction] of Blood by Automated count 38.8-50.0 [facility] Hemoglobin [Mass/volume] in BloodOrdered By: Yamila Donald on 11-19-2024 Hemoglobin (Bld) [Mass/Vol] Hemoglobin [Mass/volume] in Blood 13.0-17.0 [facility] Hemogram CBC Without Diffon 11-19-2024 Erythrocyte distribution width (RBC) [Ratio] 13.7 % Normal 12.0-14.8 [facility] Comment on above: Performed By: #### P RL, HS TROP, CBC, CMP #### [facility] [address] Hematocrit (Bld) [Volume fraction] 45.8 % Normal 38.8-50.0 [facility] Comment on above: Performed By: #### P RL, HS TROP, CBC, CMP #### [address] Hemoglobin (Bld) [Mass/Vol] 15.4 g/dL Normal 13.0-17.0 [facility] Comment on above: Performed By: #### P RL, HS TROP, CBC, CMP #### [address] MCH (RBC) [Entitic mass] 29.0 pg Normal 27.5-35.2 [facility] Comment on above: Performed By: #### P RL, HS TROP, CBC, CMP #### [address] MCV (RBC) [Entitic vol] 86.4 fL Normal 83.5-101 [facility] Comment on above: Performed By: #### P RL, HS TROP, CBC, CMP #### [address] Mean Corpuscular HGB Conc 33.5 g/dL Normal 32.5-35.6 [facility] Comment on above: Performed By: #### P RL, HS TROP, CBC, CMP #### [address] Platelet mean volume (Bld) [Entitic vol] 7.9 fL Normal 6.6-10.1 [facility] Comment on above: Result Comment: PERF ORMED BY: [place] [address] PATHOLOGIST [employer] VÍ[employer] LUCERO M.D. Performed By: #### P RL, HS TROP, CBC, CMP #### [address] Platelets (Bld) [#/Vol] 203 10*3/uL Normal 150-450 [facility] Comment on above: Performed By: #### P RL, HS TROP, CBC, CMP #### [address] [address] [place] RBC (Bld) [#/Vol] 5.31 10*6/uL Normal 3.90-5.60 [facility] Comment on above: Performed By: #### P RL, HS TROP, CBC, CMP #### [facility] [address] WBC (Bld) [#/Vol] 8.2 10*3/uL Normal 4.1-10.5 [facility] Comment on above: Performed By: #### P RL, HS TROP, CBC, CMP #### [facility] [address] Leukocytes [#/volume] correc srinivas for nucleated erythrocytes in Blood by Automated counOrdered By: Yamila Donald on 11-19-2024 WBC corrected for nucl RBC Auto (Bld) [#/Vol] Leukocytes [#/volume] corrected for nucleated erythrocytes in Blood by Automated coun 4.1-10.5 [facility] MCH Auto (RBC) [Entitic mass ]Ordered By: Yamila Donald on 11-19-2024 MCH (RBC) [Entitic mass] MCH [Entitic mass] by Automated count 27.5-35.2 [facility] MCHC Auto (RBC) [Mass/Vol]Or dered By: Yamila Donald on 11-19-2024 MCHC (RBC) [Mass/Vol] MCHC [Mass/volume] by Automated count 32.5-35.6 [facility] MCV Auto (RBC) [Entitic vol] Ordered By: Yamila Donald on 11-19-2024 MCV (RBC) [Entitic vol] MCV [Entitic volume] by Automated count 83.5-101 [facility] MR head/brain wo conon 11-19 MR head/brain wo con [facility] [place] [address] MRI Report Signed Patient: Aaorn Olivarez MR#: [id number] 00 : 1960 Acct:[id number] Age/Sex: 64 / M ADM Date: 11/18/24 Loc: Room: [address] [place] [address] Type: ADM IN Attending Dr: Yamila Donald [...] Regino Mckinley M.D.11/19/2024 4:50 PM Dictation Location: [place] [address] Transcribed By: [facility] 11/19/24 1650 Dictated By: Regino Mckinley MD 11/19/24 1644 Signed By: 11/19/24 1650 Normal [facility] Magnesiumon 11-19-2024 Magnesium [Mass/Vol] 1.7 mg/dL Low 1.9-2.7 [facility] Comment on above: Result Comment: PERF ORMED BY: [place] [address] PATHOLOGIST [employer] LUCERO M.D. Performed By: #### P RL, HS TROP, CBC, CMP #### [address] Magnesium [Mass/volume] in S andrei or PlasmaOrdered By: Yamila Donald on 11-19-2024 Magnesium [Mass/Vol] Magnesium [Mass/vol ume] in Serum or Plasma Low 1.9-2.7 [facility] Magnetic resonance imaging r eportOrdered By: Regino Mckinley on 11-19-2024 Study report [place] [address] MRI Report Signed Patient: Aaron Olivarez MR#: [id number] : 1960 Acct:[id number] Age/Sex: 64 / M ADM Date: 5 Loc: Room: [address] [place] [address] Type: ADM IN Attending Dr: Yamila Donald [...] Regino Mckinley M.D.11/19/2024 4:50 PM Dictation Location: [place] [address] Transcribed By: YNES 11/19/241649 Dictated By: Regino Mckinley MD 11/19/241643 Signed By: 11/19/241649 [facility] Work Phone: No Panel InformationOrdered By: Yamila Donald on 11-19-2024 Estimated GFR (CKD-EPI) > 60.0 mL/Min [facility] Creatinine Clearance (Chem 98.46 [facility] Platelet mean volume Auto (B ld) [Entitic vol]Ordered By: Yamila Donald on 11-19-2024 Platelet mean volume (Bld) [Entitic vol] Platelet mean volume [Entitic volume] in Blood by Automated count 6.6-10.1 [facility] Platelets Auto (Bld) [#/Vol] Ordered By: Yamila Donald on 11-19-2024 Platelets (Bld) [#/Vol] Platelets [#/volume] in Blood by Automated count 150-450 [facility] Potassium [Moles/volume] in Serum or PlasmaOrdered By: Yamila Donald on 11-19-2024 Potassium [Moles/Vol] Potassium [Moles/v olume] in Serum or Plasma Low 3.5-5.1 [facility] RBC Auto (Bld) [#/Vol]Ordere d By: Yamila Donald on 11-19-2024 RBC (Bld) [#/Vol] Erythrocytes [#/volu me] in Blood by Automated count 3.90-5.60 [facility] Serum or plasma anion gap de terminationOrdered By: Yamila Donald on 11-19-2024 Anion gap [Moles/Vol] Serum or plasma an ion gap determination 6.0-15.0 [facility] Sodium [Moles/volume] in Ser um or PlasmaOrdered By: Yamila Donald on 11-19-2024 Sodium [Moles/Vol] Sodium [Moles/volume ] in Serum or Plasma 136-145 [facility] Urea nitrogen [Mass/volume] in Serum or PlasmaOrdered By: Yamila Donald on 11-19-2024 Urea nitrogen [Mass/Vol] Urea nitrogen [Mass/volume] in Serum or Plasma 7-25 [facility] Alanine aminotransferase [En zymatic activity/volume] in Serum or PlasmaOrdered By: Chaz Frey on 11-18-2024 ALT [Catalytic activity/Vol] Alanine aminotransferase [Enzymatic activity/volume] in Serum or Plasma 7-52 [facility] Albumin [Mass/volume] in Ser um or Plasma by Bromocresol green (BCG) dye binding methoOrdered By: Chaz Frey on 11-18-2024 Albumin BCG dye [Mass/Vol] Albumin [Mass/volume] in Serum or Plasma by Bromocresol green (BCG) dye binding metho 3.5-5.7 [facility] Alkaline phosphatase [Enzyma tic activity/volume] in Serum or PlasmaOrdered By: Chaz Frey on 11-18-2024 ALP [Catalytic activity/Vol] Alkaline phosphatase [Enzymatic activity/volume] in Serum or Plasma 34-104 [facility] Aspartate aminotransferase [ Enzymatic activity/volume] in Serum or PlasmaOrdered By: Chaz Frey on 11-18-2024 AST [Catalytic activity/Vol] Aspartate aminotransferase [Enzymatic activity/volume] in Serum or Plasma 13-39 [facility] Basophils Auto (Bld) [#/Vol] Ordered By: Chaz Frey on 11-18-2024 Basophils (Bld) [#/Vol] Automated basophil count 0.0-0.2 [facility] Basophils/100 WBC Auto (Bld) Ordered By: Chaz Frey on 11-18-2024 Basophils/100 WBC (Bld) Automated basophil % . [facility] Bilirubin.total [Mass/volume ] in Serum or PlasmaOrdered By: Chaz Frey on 11-18-2024 Bilirubin [Mass/Vol] Bilirubin.total [Mass/volume] in Serum or Plasma High 0.3-1.0 [facility] Calcium [Mass/volume] in Ser um or PlasmaOrdered By: Chaz Frey on 11-18-2024 Calcium [Mass/Vol] Calcium [Mass/volume ] in Serum or Plasma 8.6-10.3 [facility] Carbon dioxide, total [Moles /volume] in Serum or PlasmaOrdered By: Chaz Frey on 11-18-2024 CO2 [Moles/Vol] Carbon dioxide, tota l [Moles/volume] in Serum or Plasma High 21.0-31.0 [facility] Chloride [Moles/volume] in S andrei or PlasmaOrdered By: Chaz Frey on 11-18-2024 Chloride [Moles/Vol] Chloride [Moles/vol ume] in Serum or Plasma 98-107 [facility] Complete Blood Count Auto Di ffon 11-18-2024 Basophils (Bld) [#/Vol] 0.0 10*3/uL Normal 0.0-0.2 [facility] Comment on above: Result Comment: PERF ORMED BY: [place] [address] PATHOLOGIST [employer] LUCERO M.D. Performed By: #### P RL, HS TROP, CBC, CMP #### [address] Basophils/100 WBC (Bld) 0.6 % Normal . [facility] Comment on above: Performed By: #### P RL, HS TROP, CBC, CMP #### [address] Eosinophils (Bld) [#/Vol] 0.0 10*3/uL Normal 0.0-0.45 [facility] Comment on above: Performed By: #### P RL, HS TROP, CBC, CMP #### [address] Eosinophils/100 WBC (Bld) 0.1 % Normal . [facility] Comment on above: Performed By: #### P RL, HS TROP, CBC, CMP #### [address] Erythrocyte distribution width (RBC) [Ratio] 13.3 % Normal 12.0-14.8 [facility] Comment on above: Performed By: #### P RL, HS TROP, CBC, CMP #### [address] Hematocrit (Bld) [Volume fraction] 43.0 % Normal 38.8-50.0 [facility] Comment on above: Performed By: #### P RL, HS TROP, CBC, CMP #### [address] Hemoglobin (Bld) [Mass/Vol] 14.6 g/dL Normal 13.0-17.0 [facility] Comment on above: Performed By: #### P RL, HS TROP, CBC, CMP #### [address] Lymphocytes (Bld) [#/Vol] 1.4 10*3/uL Normal 1.00-4.8 [facility] Comment on above: Performed By: #### P RL, HS TROP, CBC, CMP #### [address] Lymphocytes/100 WBC (Bld) 20.9 % Normal . [facility] Comment on above: Performed By: #### P RL, HS TROP, CBC, CMP #### [address] MCH (RBC) [Entitic mass] 29.1 pg Normal 27.5-35.2 [facility] Comment on above: Performed By: #### P RL, HS TROP, CBC, CMP #### [address] MCV (RBC) [Entitic vol] 85.8 fL Normal 83.5-101 [facility] Comment on above: Performed By: #### P RL, HS TROP, CBC, CMP #### [address] Mean Corpuscular HGB Conc 33.9 g/dL Normal 32.5-35.6 [facility] Comment on above: Performed By: #### P RL, HS TROP, CBC, CMP #### [address] Monocytes (Bld) [#/Vol] 0.6 10*3/uL Normal 0.0-0.8 [facility] Comment on above: Performed By: #### P RL, HS TROP, CBC, CMP #### [place] [address] [place] Monocytes/100 WBC (Bld) 8.5 % Normal . [facility] Comment on above: Performed By: #### P RL, HS TROP, CBC, CMP #### [address] Neutrophils (Bld) [#/Vol] 4.7 10*3/uL Normal 1.8-7.7 [facility] Comment on above: Performed By: #### P RL, HS TROP, CBC, CMP #### [place] [address] [place] Neutrophils/100 WBC (Bld) 69.9 % Normal . [facility] Comment on above: Performed By: #### P RL, HS TROP, CBC, CMP #### [place] [address] [place] NRBC% 0.1 /100{WBC} Normal 0-0.5 [facility] Comment on above: Performed By: #### P RL, HS TROP, CBC, CMP #### [place] [address] [place] Platelet mean volume (Bld) [Entitic vol] 7.6 fL Normal 6.6-10.1 [facility] Comment on above: Performed By: #### P RL, HS TROP, CBC, CMP #### [place] [address] [place] Platelets (Bld) [#/Vol] 216 10*3/uL Normal 150-450 [facility] Comment on above: Performed By: #### P RL, HS TROP, CBC, CMP #### [place] [address] [place] RBC (Bld) [#/Vol] 5.01 10*6/uL Normal 3.90-5.60 [facility] Comment on above: Performed By: #### P RL, HS TROP, CBC, CMP #### [place] [address] [place] WBC (Bld) [#/Vol] 6.7 10*3/uL Normal 4.1-10.5 [facility] Comment on above: Performed By: #### P RL, HS TROP, CBC, CMP #### [address] Comprehensive Metabolic Pane wilner 11-18-2024 Albumin [Mass/Vol] 3.9 g/dL Normal 3.5-5.7 [facility] Comment on above: Performed By: #### P RL, HS TROP, CBC, CMP #### [address] Albumin/Globulin [Mass ratio] 1.6 {ratio} Normal [facility] Comment on above: Performed By: #### P RL, HS TROP, CBC, CMP #### [address] ALP [Catalytic activity/Vol] 93 U/L Normal 34-104 [facility] Comment on above: Performed By: #### P RL, HS TROP, CBC, CMP #### [address] ALT [Catalytic activity/Vol] 10 U/L Normal 7-52 [facility] Comment on above: Performed By: #### P RL, HS TROP, CBC, CMP #### [address] Anion gap [Moles/Vol] 9.7 mmol/L Normal 6.0-15.0 [facility] Comment on above: Performed By: #### P RL, HS TROP, CBC, CMP #### [address] AST [Catalytic activity/Vol] 16 U/L Normal 13-39 [facility] Comment on above: Performed By: #### P RL, HS TROP, CBC, CMP #### [address] Bilirubin [Mass/Vol] 1.2 mg/dL High 0.3-1.0 [facility] Comment on above: Performed By: #### P RL, HS TROP, CBC, CMP #### [facility] [address] Calcium [Mass/Vol] 9.4 mg/dL Normal 8.6-10.3 [facility] Comment on above: Performed By: #### P RL, HS TROP, CBC, CMP #### [facility] [address] Chloride [Moles/Vol] 105 mmol/L Normal 98-107 [facility] Comment on above: Performed By: #### P RL, HS TROP, CBC, CMP #### [address] CO2 [Moles/Vol] 31.4 mmol/L High 21.0-31.0 [facility] Comment on above: Performed By: #### P RL, HS TROP, CBC, CMP #### [place] [address] [place] Creatinine [Mass/Vol] 1.10 mg/dL Normal 0.70-1.30 [facility] Comment on above: Performed By: #### P RL, HS TROP, CBC, CMP #### [place] [address] [place] Creatinine Clr Calc Pharmacy 72.51 Normal [facility] Comment on above: Performed By: #### P RL, HS TROP, CBC, CMP #### [place] [address] [place] GFR/1.73 sq M.predicted MDRD (S/P/Bld) [Vol rate/Area] mL/min/{1.73_m2} Normal [facility] Comment on above: Performed By: #### P RL, HS TROP, CBC, CMP #### [place] [address] [place] Globulin (S) [Mass/Vol] 2.4 g/dL Normal [facility] Comment on above: Performed By: #### P RL, HS TROP, CBC, CMP #### [facility] [address] [place] [address] [place] Glucose [Mass/Vol] 113 mg/dL High 70-100 [facility] Comment on above: Result Comment: [place] om Glucose Reference Range is dependent on time and content of last meal. Glucose of more than 200 mg/dL in a nonstressed, ambulatory subject supports the diagnosis of Diabetes Mellitus. ADA recommended reference range Performed By: #### P RL, HS TROP, CBC, CMP #### [facility] [address] Potassium [Moles/Vol] 4.1 mmol/L Normal 3.5-5.1 [facility] Comment on above: Performed By: #### P RL, HS TROP, CBC, CMP #### [facility] [address] [place] [address] [place] Protein [Mass/Vol] 6.3 g/dL Low 6.4-8.9 [facility] Comment on above: Performed By: #### P RL, HS TROP, CBC, CMP #### [facility] [address] [place] [address] [place] Sodium [Moles/Vol] 142 mmol/L Normal 136-145 [facility] Comment on above: Performed By: #### P RL, HS TROP, CBC, CMP #### [facility] [address] [place] [id number] [place] Urea nitrogen [Mass/Vol] 22 mg/dL Normal 7-25 [facility] Comment on above: Performed By: #### P RL, HS TROP, CBC, CMP #### [facility] [address] [place] [id number] [facility] Creatinine [Mass/volume] in Serum or PlasmaOrdered By: Chaz Frey on 11-18-2024 Creatinine [Mass/Vol] Creatinine [Mass/v olume] in Serum or Plasma 0.70-1.30 [facility] echo transthoracicon [facility] echo transthoracic [facility] [place] [address] Echocardiogram Signed Patient: Aaron Olivarez MR#: [id number] 00 : 1960 Acct:[id number] Age/Sex: 64 / M ADM Date: 11/18/24 Loc: Room: [address] [place] [address] Type: ADM IN Attending Dr: Yamila Donald MD Ordering Provider: Chaz Frey MD Date of Service: 11/17/2404/06/1256 [facility] echo transthoracic: TIA Copies to: MD Chaz [...] Joan Chisholm MD 11/18/24 1643 Normal [facility] Eosinophils Auto (Bld) [#/Vo l]Ordered By: Chaz Frey on 11-18-2024 Eosinophils (Bld) [#/Vol] Automated eosinophil count 0.0-0.45 [facility] Eosinophils/100 WBC Auto (Bl d)Ordered By: Chaz Frey on 11-18-2024 Eosinophils/100 WBC (Bld) Automated eosinophil % . [facility] Erythrocyte distribution wid th Auto (RBC) [Ratio]Ordered By: Chaz Frey on 11-18-2024 Erythrocyte distribution width (RBC) [Ratio] Erythrocyte distribution width [Ratio] by Automated count 12.0-14.8 [facility] Globulin Calc (S) [Mass/Vol] Ordered By: Chaz Frey on 11-18-2024 Globulin (S) [Mass/Vol] Serum globulin measurement by calculation (mass/volume) [facility] Glucose [Mass/volume] in Ser um or PlasmaOrdered By: Chaz Frey on 11-18-2024 Glucose [Mass/Vol] Glucose [Mass/volume ] in Serum or Plasma High 70-100 [facility] Comment on above: ADA recommended refe rence rangeRandom Glucose Reference Range is dependent on time and content of last meal. Glucose of more than 200 mg/dL in a nonstressed, ambulatory subject supports the diagnosis of Diabetes Mellitus. Hematocrit Auto (Bld) [Volum e fraction]Ordered By: Chaz Frey on 11-18-2024 Hematocrit (Bld) [Volume fraction] Hematocrit [Volume Fraction] of Blood by Automated count 38.8-50.0 [facility] Hemoglobin [Mass/volume] in BloodOrdered By: Chaz Frey on 11-18-2024 Hemoglobin (Bld) [Mass/Vol] Hemoglobin [Mass/volume] in Blood 13.0-17.0 [facility] Leukocytes [#/volume] correc srinivas for nucleated erythrocytes in Blood by Automated counOrdered By: Chaz Frey on 11-18-2024 WBC corrected for nucl RBC Auto (Bld) [#/Vol] Leukocytes [#/volume] corrected for nucleated erythrocytes in Blood by Automated coun 4.1-10.5 [facility] Lymphocytes Auto (Bld) [#/Vo l]Ordered By: Chaz Frey on 11-18-2024 Lymphocytes (Bld) [#/Vol] Lymphocytes [#/volume] in Blood by Automated count 1.00-4.8 [facility] Lymphocytes/100 WBC Auto (Bl d)Ordered By: Chaz Frey on 11-18-2024 Lymphocytes/100 WBC (Bld) Lymphocytes/100 leukocytes in Blood by Automated count . [facility] MCH Auto (RBC) [Entitic mass ]Ordered By: Chaz Frey on 11-18-2024 MCH (RBC) [Entitic mass] MCH [Entitic mass] by Automated count 27.5-35.2 [facility] MCHC Auto (RBC) [Mass/Vol]Or dered By: Chaz Frey on 11-18-2024 MCHC (RBC) [Mass/Vol] MCHC [Mass/volume] by Automated count 32.5-35.6 [facility] MCV Auto (RBC) [Entitic vol] Ordered By: Chaz Frey on 11-18-2024 MCV (RBC) [Entitic vol] MCV [Entitic volume] by Automated count 83.5-101 [facility] Monocytes Auto (Bld) [#/Vol] Ordered By: Chaz Frey on 11-18-2024 Monocytes (Bld) [#/Vol] Automated blood monocyte count 0.0-0.8 [facility] Monocytes/100 WBC Auto (Bld) Ordered By: Chaz Frey on 11-18-2024 Monocytes/100 WBC (Bld) Automated monocyte % . [facility] Neutrophils Auto (Bld) [#/Vo l]Ordered By: Chaz Frey on 11-18-2024 Neutrophils (Bld) [#/Vol] Neutrophils [#/volume] in Blood by Automated count 1.8-7.7 [facility] Neutrophils/100 WBC Auto (Bl d)Ordered By: Chaz Frey on 11-18-2024 Neutrophils/100 WBC (Bld) Automated neutrophil % . [facility] No Panel InformationOrdered By: Chaz Frey on 11-18-2024 Estimated GFR (CKD-EPI) > 60.0 mL/Min [facility] Creatinine Clearance (Chem 72.51 [facility] Nucleated erythrocytes [Pres ence] in Blood by Automated countOrdered By: Chaz Frey on 11-18-2024 Nucleated RBC Auto Ql (Bld) Nucleated erythrocytes [Presence] in Blood by Automated count 0-0.5 [facility] Platelet mean volume Auto (B ld) [Entitic vol]Ordered By: Chaz Frey on 11-18-2024 Platelet mean volume (Bld) [Entitic vol] Platelet mean volume [Entitic volume] in Blood by Automated count 6.6-10.1 [facility] Platelets Auto (Bld) [#/Vol] Ordered By: Chaz Palafox on 11-18-2024 Platelets (Bld) [#/Vol] Platelets [#/volume] in Blood by Automated count 150-450 [facility] Potassium [Moles/volume] in Serum or PlasmaOrdered By: Chaz Frey on 11-18-2024 Potassium [Moles/Vol] Potassium [Moles/v olume] in Serum or Plasma 3.5-5.1 [facility] Prolactinon 11-18-2024 Prolactin 16.14 ng/mL High 2.64-13.13 [facility] Comment on above: Result Comment: PERF ORMED BY: [place] [address] PATHOLOGIST [employer] VÍCTOR LUCERO M.D. Performed By: #### P RL, HS TROP, CBC, CMP #### [address] Prolactin [Mass/volume] in S andrei or PlasmaOrdered By: Chaz Frey on 11-18-2024 Prolactin [Mass/Vol] Prolactin [Mass/vol ume] in Serum or Plasma High 2.64-13.13 [facility] Protein [Mass/volume] in Ser um or PlasmaOrdered By: Chaz Frey on 11-18-2024 Protein [Mass/Vol] Protein [Mass/volume ] in Serum or Plasma Low 6.4-8.9 [facility] RBC Auto (Bld) [#/Vol]Ordere d By: Chaz Frey on 11-18-2024 RBC (Bld) [#/Vol] Erythrocytes [#/volu me] in Blood by Automated count 3.90-5.60 [facility] Serum or plasma albumin/glob ulin mass ratioOrdered By: Chaz Frey on 11-18-2024 Albumin/Globulin [Mass ratio] Serum or plasma albumin/globulin mass ratio [facility] Serum or plasma anion gap de terminationOrdered By: Chaz Frey on 11-18-2024 Anion gap [Moles/Vol] Serum or plasma an ion gap determination 6.0-15.0 [facility] Sodium [Moles/volume] in Ser um or PlasmaOrdered By: Chaz Frey on 11-18-2024 Sodium [Moles/Vol] Sodium [Moles/volume ] in Serum or Plasma 136-145 [facility] Troponin I High Sensitivityo n 11-18-2024 Troponin I High Sensitivity 26.6 pg/mL High 0.0-20.0 [facility] Comment on above: Result Comment: PERF ORMED BY: [place] [address] PATHOLOGIST [employer] LUCERO M.D. Performed By: #### P RL, HS TROP, CBC, CMP #### [facility] [address] [place] [address] Troponin I.cardiac [Mass/vol ume] in Serum or Plasma by Detection limit <= 0.01 ng/Ordered By: Chaz Frey on 11-18-2024 Troponin I.cardiac DL <= 0.01 ng/mL [Mass/Vol] Troponin I.cardiac [Mass/volume] in Serum or Plasma by Detection limit <= 0.01 ng/ High 0.0-20.0 [facility] Urea nitrogen [Mass/volume] in Serum or PlasmaOrdered By: Chaz Frey on 11-18-2024 Urea nitrogen [Mass/Vol] Urea nitrogen [Mass/volume] in Serum or Plasma 7-25 [facility] WBC Auto (Bld) [#/Vol]Ordere d By: Chaz Frey on 11-18-2024 WBC (Bld) [#/Vol] Leukocytes [#/volume ] in Blood by Automated count 4.1-10.5 [facility] Amphetamine Screen Ql (U)Ord ered By: Ragini Carmona on 11-17-2024 Amphetamines Ql (U) Amphetamines screen High Negativ e [facility] Amphetamine cutoff [Mass/vol ume] in Urine for Confirmatory methodOrdered By: Chaz Frey on 11-17-2024 Amphetamine cutoff Confirm (U) [Mass/Vol] Amphetamine cutoff [Mass/volume] in Urine for Confirmatory method [id number]=[id number] [facility] Amphetamine+Methamphetamine [Presence] in UrineOrdered By: Chaz Frey on 11-17-2024 Amphetamine+Methamphe tamine Ql (U) Amphetamine+Methamphetamine [Presence] in Urine Abnormal [id number]=[id number] 0 [facility] Comment on above: Amphetamine test inc ludes Amphetamine and Methamphetamine. Amphetamines [Presence] in U rineOrdered By: Chaz Frey on 11-17-2024 Amphetamines Ql (U) Amphetamines [Presen ce] in Urine Abnormal . [facility] Amphetamines [Presence] in U rine by Screen methodOrdered By: Chaz Frey on 11-17-2024 Amphetamines Screen Ql (U) Amphetamines [Presence] in Urine by Screen method [id number] [facility] Comment on above: Amphetamine test inc ludes Amphetamine and Methamphetamine. Appearance of UrineOrdered B y: Ragini Carmona on 11-17-2024 Appearance (U) Urine appearance Clear [facility] Bacteria [Presence] in Urine by AutomatedOrdered By: Ragini Carmona on 11-17-2024 Bacteria Auto Ql (U) Bacteria [Presence] in Urine by Automated None Seen [facility] Barbiturates [Presence] in U rine by Screen methodOrdered By: Ragini Carmona on 11-17-2024 Barbiturates Screen Ql (U) Barbiturates [Presence] in Urine by Screen method [id number] [facility] Benzodiazepines Screen Ql (U )Ordered By: Ragini Carmona on 11-17-2024 Benzodiazepines Ql (U) Benzodiazepines [Presence] in Urine by Screen method High Negative [facility] Benzodiazepines [Presence] i n UrineOrdered By: Chaz Frey on 11-17-2024 Benzodiazepines Ql (U) Benzodiazepines [Presence] in Urine Nfgald=320 [facility] Benzoylecgonine [Presence] i n Urine by Screen methodOrdered By: Ragini Carmona on 11-17-2024 Benzoylecgonine Screen Ql (U) Benzoylecgonine [Presence] in Urine by Screen method Negative [facility] Bilirubin Test strip Ql (U)O rdered By: Ragini Carmona on 11-17-2024 Bilirubin Ql (U) Bilirubin.total [Pre sence] in Urine by Test strip Negative [facility] CT angio neckon 11-17-2024 CT angio neck [place] [address] CT Scan Report Signed Patient: Aaron Olivarez MR#: [id number] 00 : 1960 Acct:[id number] Age/Sex: 64 / M ADM Date: 11/17/24 Loc: ER Room: Type: PRE ER Attending Dr: Copies to: Ragini Carmona DO Ordering Provider: Ragini Carmona DO Date of Service: 11/17/24 CT/CT angio head: cva ([id number]) CT/CT angio neck: cva CT angio head, [...] Dung Chakraborty M.D.11/17/2024 8:59 AM Dictation Location: [place] [address] Transcribed By: [facility] 11/17/24 0859 Dictated By: Dung Chakraborty II, MD 11/17/24 0852 Signed By: 11/17/24 0859 Normal [facility] CT head stroke alert wo cono n 11-17-2024 CT head stroke alert wo con [facility] [place] [address] CT Scan Report Signed Patient: Aaron Olivarez MR#: [id number] 00 : 1960 Acct:[id number] Age/Sex: 64 / M ADM Date: 11/17/24 [...] Dung Chakraborty M.D.11/17/2024 8:43 AM Dictation Location: [place] [address] Transcribed By: YNES 11/17/24 0843 Dictated By: Dung Chakraborty II, MD 11/17/24 0837 Signed By: 11/17/2443 Normal [facility] Cannabinoids [Mass/volume] i n Urine by Confirmatory methodOrdered By: Chaz Frey on 11-17-2024 Cannabinoids Confirm (U) [Mass/Vol] Cannabinoids [Mass/volume] in Urine by Confirmatory method Cutoff=50 [facility] Cannabinoids [Presence] in U rine by Screen methodOrdered By: Rgaini Carmona on 11-17-2024 Cannabinoids Screen Ql (U) Cannabinoids [Presence] in Urine by Screen method Cutoff=50 [facility] Comment on above: These are unconfirme d results and should not be used for legal purposes. Drug Cut-Off Concentration: AMPH 1000 ng/mL BHASKAR 200 ng/mL RIKKI 200 ng/mL COCM 300 ng/mL OP 300 ng/mL PCP 25 ng/mL THC 20 ng/mL Color Auto (U)Ordered By: Natalie Carmona on 11-17-2024 Color (U) Color of Urine by Auto Yellow [facility] Complete Blood Count Auto Di ffon 11-17-2024 Basophils (Bld) [#/Vol] 0.0 10*3/uL Normal 0.0-0.2 [facility] Comment on above: Result Comment: PERF ORMED BY: [place] [address] PATHOLOGIST [employer] LUCERO M.D. Performed By: #### P RL, HS TROP, CBC, CMP #### [address] Basophils/100 WBC (Bld) 0.4 % Normal . [facility] Comment on above: Performed By: #### P RL, HS TROP, CBC, CMP #### [address] Eosinophils (Bld) [#/Vol] 0.0 10*3/uL Normal 0.0-0.45 [facility] Comment on above: Performed By: #### P RL, HS TROP, CBC, CMP #### [address] Eosinophils/100 WBC (Bld) 0.1 % Normal . [facility] Comment on above: Performed By: #### P RL, HS TROP, CBC, CMP #### [address] Erythrocyte distribution width (RBC) [Ratio] 13.6 % Normal 12.0-14.8 [facility] Comment on above: Performed By: #### P RL, HS TROP, CBC, CMP #### [address] Hematocrit (Bld) [Volume fraction] 46.4 % Normal 38.8-50.0 [facility] Comment on above: Performed By: #### P RL, HS TROP, CBC, CMP #### [address] Hemoglobin (Bld) [Mass/Vol] 15.6 g/dL Normal 13.0-17.0 [facility] Comment on above: Performed By: #### P RL, HS TROP, CBC, CMP #### [address] Lymphocytes (Bld) [#/Vol] 0.4 10*3/uL Low 1.00-4.8 [facility] Comment on above: Performed By: #### P RL, HS TROP, CBC, CMP #### [address] Lymphocytes/100 WBC (Bld) 4.4 % Normal . [facility] Comment on above: Performed By: #### P RL, HS TROP, CBC, CMP #### [address] MCH (RBC) [Entitic mass] 28.8 pg Normal 27.5-35.2 [facility] Comment on above: Performed By: #### P RL, HS TROP, CBC, CMP #### [address] MCV (RBC) [Entitic vol] 85.6 fL Normal 83.5-101 [facility] Comment on above: Performed By: #### P RL, HS TROP, CBC, CMP #### [address] Mean Corpuscular HGB Conc 33.6 g/dL Normal 32.5-35.6 [facility] Comment on above: Performed By: #### P RL, HS TROP, CBC, CMP #### [address] Monocytes (Bld) [#/Vol] 0.3 10*3/uL Normal 0.0-0.8 [facility] Comment on above: Performed By: #### P RL, HS TROP, CBC, CMP #### [address] Monocytes/100 WBC (Bld) 15.39 % Normal 0.00-20.00 [facility] Comment on above: Performed By: #### P RL, HS TROP, CBC, CMP #### [place] [address] [place] Monocytes/100 WBC (Bld) 3.3 % Normal . [facility] Comment on above: Performed By: #### P RL, HS TROP, CBC, CMP #### [address] Neutrophils (Bld) [#/Vol] 9.2 10*3/uL High 1.8-7.7 [facility] Comment on above: Performed By: #### P RL, HS TROP, CBC, CMP #### [address] Neutrophils/100 WBC (Bld) 91.8 % Normal . [facility] Comment on above: Performed By: #### P RL, HS TROP, CBC, CMP #### [address] NRBC% 0.1 /100{WBC} Normal 0-0.5 [facility] Comment on above: Performed By: #### P RL, HS TROP, CBC, CMP #### [address] Platelet mean volume (Bld) [Entitic vol] 7.3 fL Normal 6.6-10.1 [facility] Comment on above: Performed By: #### P RL, HS TROP, CBC, CMP #### [place] [address] [place] Platelets (Bld) [#/Vol] 280 10*3/uL Normal 150-450 [facility] Comment on above: Performed By: #### P RL, HS TROP, CBC, CMP #### [place] [address] [place] RBC (Bld) [#/Vol] 5.42 10*6/uL Normal 3.90-5.60 [facility] Comment on above: Performed By: #### P RL, HS TROP, CBC, CMP #### [place] [address] [place] WBC (Bld) [#/Vol] 10.1 10*3/uL Normal 4.1-10.5 [facility] Comment on above: Performed By: #### P RL, HS TROP, CBC, CMP #### [address] Comprehensive Metabolic Pane wilner 11-17-2024 Albumin [Mass/Vol] 4.2 g/dL Normal 3.5-5.7 [facility] Comment on above: Performed By: #### P RL, HS TROP, CBC, CMP #### [address] Albumin/Globulin [Mass ratio] 1.7 {ratio} Normal [facility] Comment on above: Performed By: #### P RL, HS TROP, CBC, CMP #### [address] ALP [Catalytic activity/Vol] 95 U/L Normal 34-104 [facility] Comment on above: Performed By: #### P RL, HS TROP, CBC, CMP #### [address] ALT [Catalytic activity/Vol] 12 U/L Normal 7-52 [facility] Comment on above: Performed By: #### P RL, HS TROP, CBC, CMP #### [address] Anion gap [Moles/Vol] 13.0 mmol/L Normal 6.0-15.0 [facility] Comment on above: Performed By: #### P RL, HS TROP, CBC, CMP #### [address] AST [Catalytic activity/Vol] 24 U/L Normal 13-39 [facility] Comment on above: Performed By: #### P RL, HS TROP, CBC, CMP #### [address] Bilirubin [Mass/Vol] 0.6 mg/dL Normal 0.3-1.0 [facility] Comment on above: Performed By: #### P RL, HS TROP, CBC, CMP #### [facility] [address] Calcium [Mass/Vol] 9.1 mg/dL Normal 8.6-10.3 [facility] Comment on above: Performed By: #### P RL, HS TROP, CBC, CMP #### [address] Chloride [Moles/Vol] 104 mmol/L Normal 98-107 [facility] Comment on above: Performed By: #### P RL, HS TROP, CBC, CMP #### [address] CO2 [Moles/Vol] 29.2 mmol/L Normal 21.0-31.0 [facility] Comment on above: Performed By: #### P RL, HS TROP, CBC, CMP #### [address] Creatinine [Mass/Vol] 1.27 mg/dL Normal 0.70-1.30 [facility] Comment on above: Performed By: #### P RL, HS TROP, CBC, CMP #### [place] [address] [place] GFR/1.73 sq M.predicted MDRD (S/P/Bld) [Vol rate/Area] mL/min/{1.73_m2} Normal [facility] Comment on above: Performed By: #### P RL, HS TROP, CBC, CMP #### [place] [address] [place] Globulin (S) [Mass/Vol] 2.5 g/dL Normal [facility] Comment on above: Performed By: #### P RL, HS TROP, CBC, CMP #### [place] [address] [place] Glucose [Mass/Vol] 163 mg/dL High 70-100 [facility] Comment on above: Result Comment: [place] Glucose Reference Range is dependent on time and content of last meal. Glucose of more than 200 mg/dL in a nonstressed, ambulatory subject supports the diagnosis of Diabetes Mellitus. ADA recommended reference range Performed By: #### P RL, HS TROP, CBC, CMP #### [facility] [address] Potassium [Moles/Vol] 4.2 mmol/L Normal 3.5-5.1 [facility] Comment on above: Performed By: #### P RL, HS TROP, CBC, CMP #### [facility] [address] Protein [Mass/Vol] 6.7 g/dL Normal 6.4-8.9 [facility] Comment on above: Performed By: #### P RL, HS TROP, CBC, CMP #### [facility] [address] [place] [address] [place] Sodium [Moles/Vol] 142 mmol/L Normal 136-145 [facility] Comment on above: Performed By: #### P RL, HS TROP, CBC, CMP #### [address] Urea nitrogen [Mass/Vol] 16 mg/dL Normal 7-25 [facility] Comment on above: Performed By: #### P RL, HS TROP, CBC, CMP #### [place] [address] [place] Creatine Kinaseon 11-17-2024 CK [Catalytic activity/Vol] 134 U/L Normal 30-223 [facility] Comment on above: Performed By: #### P RL, HS TROP, CBC, CMP #### [place] [address] [place] Creatine kinase [Enzymatic a ctivity/volume] in Serum or PlasmaOrdered By: Ragini Carmona on 11-17-2024 CK [Catalytic activity/Vol] Creatine kinase [Enzymatic activity/volume] in Serum or Plasma 30-223 [facility] Dipstick and Microscopicon 0 11-17-2024 Appearance (U) Clear Normal Clear [facility] Comment on above: Order Comment: Name Collection Type:: Clean-Voided Midstream Performed By: #### U RDS, ADDONUAPLUS #### [address] Bacteria,Urine None Seen Normal None Seen [facility] Comment on above: Order Comment: Name Collection Type:: Clean-Voided Midstream Performed By: #### U RDS, ADDONUAPLUS #### [facility] [address] [place] [address] [place] Bilirubin,Urine Negative Normal Negative [facility] Comment on above: Order Comment: Name Collection Type:: Clean-Voided Midstream Performed By: #### U RDS, ADDONUAPLUS #### [facility] [address] [place] [address] [place] Color (U) Yellow Normal Yellow [facility] Comment on above: Order Comment: Name Collection Type:: Clean-Voided Midstream Performed By: #### U RDS, ADDONUAPLUS #### [address] Glucose Ql (U) 70 mg/dL High Normal [facility] Comment on above: Order Comment: Name Collection Type:: Clean-Voided Midstream Performed By: #### U RDS, ADDONUAPLUS #### [place] [address] [place] Hyaline Casts,Urine None Normal 0-8 [facility] Comment on above: Order Comment: Name Collection Type:: Clean-Voided Midstream Performed By: #### U RDS, ADDONUAPLUS #### [address] Ketones Ql (U) Negative Normal Negative [facility] Comment on above: Order Comment: Name Collection Type:: Clean-Voided Midstream Performed By: #### U RDS, ADDONUAPLUS #### [facility] [address] [place] [address] [place] Leukocyte esterase Test strip Ql (U) Negative Normal Negative [facility] Comment on above: Order Comment: Name Collection Type:: Clean-Voided Midstream Performed By: #### U RDS, ADDONUAPLUS #### [place] [address] [place] Mucus,Urine Rare Normal [facility] Comment on above: Order Comment: Name Collection Type:: Clean-Voided Midstream Result Comment: PERF ORMED BY: [place] [address] PATHOLOGIST [employer] LUCERO M.D. Performed By: #### U RDS, ADDONUAPLUS #### [address] Nitrite,Urine Negative Normal Negative [facility] Comment on above: Order Comment: Name Collection Type:: Clean-Voided Midstream Performed By: #### U RDS, ADDONUAPLUS #### [address] Occult Blood,Urine Negative Normal Negative [facility] Comment on above: Order Comment: Name Collection Type:: Clean-Voided Midstream Performed By: #### U RDS, ADDONUAPLUS #### [address] pH (U) 6.5 [pH] Normal 5.0-9.0 [facility] Comment on above: Order Comment: Name Collection Type:: Clean-Voided Midstream Performed By: #### U RDS, ADDONUAPLUS #### [address] Protein (U) [Mass/Vol] 70 mg/dL High Negative [facility] Comment on above: Order Comment: Name Collection Type:: Clean-Voided Midstream Performed By: #### U RDS, ADDONUAPLUS #### [place] [address] [place] RBC,Urine 3 [HPF] Normal 0-4 [facility] Comment on above: Order Comment: Name Collection Type:: Clean-Voided Midstream Performed By: #### U RDS, ADDONUAPLUS #### [place] [address] [place] Specificy [place],Urine >1.050 High 1.001-1.03 0 [facility] Comment on above: Order Comment: Name Collection Type:: Clean-Voided Midstream Result Comment: Rech ecked by refractometer Performed By: #### U RDS, ADDONUAPLUS #### [place] [address] [place] Squamous Epithelial Cell,Urine 1 [HPF] Normal 0-2 [facility] Comment on above: Order Comment: Name Collection Type:: Clean-Voided Midstream Performed By: #### U RDS, ADDONUAPLUS #### [address] Urobilinogen,Urine Normal Normal Normal [facility] Comment on above: Order Comment: Name Collection Type:: Clean-Voided Midstream Performed By: #### U RDS, ADDONUAPLUS #### [address] WBC,Urine 1 [HPF] Normal 0-4 [facility] Comment on above: Order Comment: Name Collection Type:: Clean-Voided Midstream Performed By: #### U RDS, ADDONUAPLUS #### [address] Drug Screen,Urineon 11-17-19 25 Amphetamine Screen,Urine Positive High Negative [facility] Comment on above: Performed By: #### U RDS, ADDONUAPLUS #### [address] Barbiturate Screen,Urine Negative Normal Negative [facility] Comment on above: Performed By: #### U RDS, ADDONUAPLUS #### [place] [address] [place] Benzodiazepines Screen,Urine Positive High Negative [facility] Comment on above: Performed By: #### U RDS, ADDONUAPLUS #### [address] Cannabinoid Screen,Urine Positive High Negative [facility] Comment on above: Result Comment: Thes e are unconfirmed results and should not be used for legal purposes. Drug Cut-Off Concentration: AMPH 1000 ng/mL BHASKAR 200 ng/mL RIKKI 200 ng/mL COCM 300 ng/mL OP 300 ng/mL PCP 25 ng/mL THC 20 ng/mL PERFORMED BY: [place] [address] PATHOLOGIST [employer] LUCERO M.D. Performed By: #### U RDS, ADDONUAPLUS #### [facility] [address] [place] [address] Cocaine Screen,Urine Negative Normal Negative [facility] Comment on above: Performed By: #### U RDS, ADDONUAPLUS #### [facility] [address] Opiate Screen,Urine Negative Normal Negative [facility] Comment on above: Performed By: #### U RDS, ADDONUAPLUS #### [facility] [address] [place] [address] Phencyclidine Screen,Urine Negative Normal Negative [facility] Comment on above: Performed By: #### U RDS, ADDONUAPLUS #### [facility] [address] [place] [address] ECG 12 lead ECGon 11-17-2024 ECG 12 lead ECG [facility] [place] [address] [place] [address] Electrocardiograph Report Signed Patient: Aaron Olivarez MR#: [id number] 00 : 1960 Acct:[id number] Age/Sex: 64 / M ADM Date: 11/17/24 Loc: Room: [address] [place] [address] Type: ADM INOo Attending Dr: Chaz Frey [...] PM Referred By: Electronically Signed By: RAGINI CARMOAN DO Transcribed By: MUS Signed By Ragini Carmona, DO 1445 Normal [facility] Epithelial cells.squamous [# /area] in Urine sediment by Automated countOrdered By: Ragini Carmona on 11-17-2024 Epithelial cells.squamous Auto (Urine sed) [#/Area] Epithelial cells.squamous [#/area] in Urine sediment by Automated count 0-2 [facility] Erythrocyte Sedimentation Ra irene 11-17-2024 ESR (Bld) [Velocity] 2 mm/h Normal 0-19 [facility] Comment on above: Result Comment: PERF ORMED BY: [place] [address] PATHOLOGIST [employer] LUCERO M.D. Performed By: #### G LULS #### Point of Care testing , Erythrocyte sedimentation ra te by Photometric methodOrdered By: Chaz Frey on 11-17-2024 ESR Photometric method (Bld) [Velocity] Erythrocyte sedimentation rate by Photometric method 0-19 [facility] Erythrocytes [#/area] in Uri ne sediment by Automated countOrdered By: Ragini Carmona on 11-17-2024 RBC Auto (Urine sed) [#/Area] Erythrocytes [#/area] in Urine sediment by Automated count 0- [facility] Ethanol [Mass/volume] in Ser um or PlasmaOrdered By: Ragini Carmona on 11-17-2024 Ethanol [Mass/Vol] Ethanol [Mass/volume ] in Serum or Plasma [facility] Comment on above: Test not performed Ethyl Alcohol Profileon Ethanol [Mass/Vol] mg/dL Normal [facility] Comment on above: Performed By: #### P RL, HS TROP, CBC, CMP #### [address] Percent Ethanol Not performed Normal [facility] Comment on above: Result Comment: PERF ORMED BY: [place] [address] PATHOLOGIST [employer] VÍCTOR LUCERO M.D. Performed By: #### P RL, HS TROP, CBC, CMP #### [facility] [address] [place] [id number] [place] Glucose Glucometer (BldC) [M ass/Vol]Ordered By: Ragini Carmona on 11-17-2024 Glucose [Mass/Vol] Capillary blood gluc ose measurement by glucometer (mass/volume) [facility] Comment on above: Random Glucose Refer ence Range is dependent on time and content of last meal. Glucose of more than 200 mg/dL in a nonstressed, ambulatory subject supports the diagnosis of Diabetes Mellitus. Glucose Poct Glucometerson 0 11-17-2024 Glucose [Mass/Vol] 175 mg/dL Normal [facility] Comment on above: Result Comment: [place] om Glucose Reference Range is dependent on time and content of last meal. Glucose of more than 200 mg/dL in a nonstressed, ambulatory subject supports the diagnosis of Diabetes Mellitus. PERFORMED BY: [place] [address] PATHOLOGIST [employer] VÍCTOR LUCERO M.D. Performed By: #### G LULS #### Point of Care testing , Glucose [Mass/volume] in Uri ne by Test stripOrdered By: Ragini Carmona on 11-17-2024 Glucose Test strip (U) [Mass/Vol] Glucose [Mass/volume] in Urine by Test strip High Normal [facility] Hemoglobin Test strip Ql (U) Ordered By: Ragini Carmona on 11-17-2024 Hemoglobin Ql (U) Hemoglobin [Presence ] in Urine by Test strip Negative [facility] Hyaline casts [#/area] in Ur ine sediment by Automated countOrdered By: Ragini Carmona on 11-17-2024 Hyaline casts Auto (Urine sed) [#/Area] Hyaline casts [#/area] in Urine sediment by Automated count 0-8 [facility] INR in Platelet poor plasma by Coagulation assayOrdered By: Ragini Carmona on 11-17-2024 INR Coag (PPP) [Relative time] INR in Platelet poor plasma by Coagulation assay [facility] Comment on above: INR Therapeutic [...] i n Urine by Test strip Negative [facility] Leukocyte esterase [Presence ] in Urine by Test stripOrdered By: Ragini Carmona on 11-17-2024 Leukocyte esterase Test strip Ql (U) Leukocyte esterase [Presence] in Urine by Test strip Negative [facility] Leukocytes [#/area] in Urine sediment by Automated countOrdered By: Ragini Carmona on 11-17-2024 WBC Auto (Urine sed) [#/Area] Leukocytes [#/area] in Urine sediment by Automated count 0-4 [facility] Magnesiumon 11-17-2024 Magnesium [Mass/Vol] 1.9 mg/dL Normal 1.9-2.7 [facility] Comment on above: Order Comment: Comme nt add on Result Comment: PERF ORMED BY: [facility] [address] [place] [address] PATHOLOGIST [employer] LUCERO M.D. Performed By: #### G LULS #### Point of Care testing , Magnesium [Mass/volume] in S andrei or PlasmaOrdered By: Chaz Frey on 11-17-2024 Magnesium [Mass/Vol] Magnesium [Mass/vol ume] in Serum or Plasma 1.9-2.7 [facility] Methamphetamine [Presence] i n UrineOrdered By: Chaz Frey on 11-17-2024 Methamphetamine Ql (U) Methamphetamine [Presence] in Urine Abnormal . [facility] Methamphetamine cutoff [Mass /volume] in Urine for Confirmatory methodOrdered By: Chaz Frey on 11-17-2024 Methamphetamine cutoff Confirm (U) [Mass/Vol] Methamphetamine cutoff [Mass/volume] in Urine for Confirmatory method [id number] [facility] Monocyte distribution width [Entitic volume] in Blood by AutomatedOrdered By: Ragini Carmona on 11-17-2024 Monocyte distribution width Auto (Bld) [Entitic vol] Monocyte distribution width [Entitic volume] in Blood by Automated 0.00-20.00 [facility] Mucus [Presence] in Urine by AutomatedOrdered By: Ragini Carmona on 11-17-2024 Mucus Auto Ql (U) Mucus [Presence] in Urine by Automated [facility] Nitrite Test strip Ql (U)Ord ered By: Ragini Carmona on 11-17-2024 Nitrite Ql (U) Nitrite [Presence] i n Urine by Test strip Negative [facility] Opiates [Presence] in UrineO rdered By: Chaz Frey on 11-17-2024 Opiates Ql (U) Opiates [Presence] in Urine Cuto rz=381 [facility] Comment on above: Opiate test includes Codeine and Morphine only. Opiates [Presence] in Urine by Screen methodOrdered By: Ragini Carmona on 11-17-2024 Opiates Screen Ql (U) Opiates [Presence] in Urine by Screen method Negative [facility] Partial Thromboplastin Timeo n 11-17-2024 aPTT Coag (Bld) [Time] 22.3 s Low 25.1-36.5 [facility] Comment on above: Result Comment: A he matocrit value greater than 55% may lead to inaccurate results in coagulation testing. Patients having hematocrit values >55% require a special collection tube for coagulation studies. Please contact the laboratory at [phone] for redraw instructions. PERFORMED BY: [place] [id number] PATHOLOGIST [employer] LUCERO M.D. Performed By: #### P RL, HS TROP, CBC, CMP #### [place] [id number] [place] Phencyclidine Screen Ql (U)O rdered By: Ragini Carmona on 11-17-2024 Phencyclidine Ql (U) Phencyclidine [Pres ence] in Urine by Screen method Negative [facility] Phencyclidine [Presence] in UrineOrdered By: Chaz Frey on 11-17-2024 Phencyclidine Ql (U) Phencyclidine [Pres ence] in Urine Cutoff=25 [facility] Comment on above: Performed at: [facility] [id number] [place], [place] [id number] Director: Adenike Panchal PhD, Phone: [phone] Prolactinon 11-17-2024 Prolactin 14.22 ng/mL High 2.64-13.13 [facility] Comment on above: Result Comment: PERF ORMED BY: [place] [address] PATHOLOGIST [employer]UCERO M.D. Performed By: #### P RL, HS TROP, CBC, CMP #### [address] Protein Test strip (U) [Mass /Vol]Ordered By: Ragini Carmona on 11-17-2024 Protein (U) [Mass/Vol] Protein [Mass/volume] in Urine by Test strip High Negative [facility] Prothrombin Time INRon 11-17 INR Coag (PPP) [Relative time] 1.0 {INR} Normal [facility] Comment on above: Result Comment: [...] P RL, HS TROP, CBC, CMP #### [address] PT Coag (PPP) [Time] 11.9 s Normal 9.0-12.9 [facility] Comment on above: Result Comment: A he matocrit value greater than 55% may lead to inaccurate results in coagulation testing. Patients having hematocrit values >55% require a special collection tube for coagulation studies. Please contact the laboratory at [phone] for redraw instructions. Performed By: #### P RL, HS TROP, CBC, CMP #### [facility] [address] [place] [address] Prothrombin time (PT)Ordered By: Ragini Carmona on 11-17-2024 PT Coag (PPP) [Time] Prothrombin time (PT) 9.0- 12.9 [facility] Comment on above: A hematocrit value g reater than 55% may lead to inaccurate results in coagulation testing. Patients having hematocrit values >55% require a special collection tube for coagulation studies. Please contact the laboratory at [phone] for redraw instructions. Specific gravity of Urine by RefractometryOrdered By: Ragini Carmona on 11-17-2024 Specific gravity Refractometry (U) [Rel density] Specific gravity of Urine by Refractometry High 1.001-1.03 0 [facility] Comment on above: Rechecked by refract ometer Troponin I High Sensitivityo n 11-17-2024 Troponin I High Sensitivity 36.7 pg/mL High 0.0-20.0 [facility] Comment on above: Result Comment: PERF ORMED BY: [place] [address] PATHOLOGIST [employer] LUCERO M.D. Performed By: #### G LULS #### Point of Care testing , Troponin I High Sensitivity 21.1 pg/mL High 0.0-20.0 [facility] Comment on above: Result Comment: PERF ORMED BY: [place] [address] PATHOLOGIST [employer] LUCERO M.D. Performed By: #### P RL, HS TROP, CBC, CMP #### [facility] [address] [place] [address] Urine Drug Screen w/Confirmo n 11-17-2024 Amphetamines GC/MS Confirm, Ur 527 ng/mL Normal Uuvzlx=977 [facility] Comment on above: Performed By: #### G LULS #### Point of Care testing , Amphetamines, Ur See Final Results Normal Cutoff =100 0 [facility] Comment on above: Result Comment: Amph etamine test includes Amphetamine and Methamphetamine. Performed By: #### G LULS #### Point of Care testing , Amphetamines, Ur Positive Critically abnormal . [facility] Comment on above: Result Comment: Amph etamine test includes Amphetamine and Methamphetamine. Performed By: #### G LULS #### Point of Care testing , Barbiturate, Ur Negative Normal Ccycco=929 [facility] Comment on above: Performed By: #### G LULS #### Point of Care testing , Benzodiazepines, Ur See Final Results Normal Cutoff=30 0 [facility] Comment on above: Performed By: #### G LULS #### Point of Care testing , Benzodiazepines, Urine Negative Normal Szfyxt=586 [facility] Comment on above: Performed By: #### G LULS #### Point of Care testing , Cannabinoid, Ur See Final Results Normal Cutoff=50 [facility] Comment on above: Performed By: #### G LULS #### Point of Care testing , Cannabinoid, Urine Negative Normal Cutoff=50 [facility] Comment on above: Result Comment: PERF ORMED BY: [address] [place] [address] PATHOLOGIST [employer] VÍCTOR LUCERO M.D. Performed By: #### G LULS #### Point of Care testing , Cocaine (Metab), Ur Negative Normal Nbxwqt=328 [facility] Comment on above: Performed By: #### G LULS #### Point of Care testing , Methamphetamine Positive Critically abnormal . [facility] Comment on above: Performed By: #### G LULS #### Point of Care testing , Methamphetamines GC/MS, Ur >3000 Normal Mhfhww=611 [facility] Comment on above: Performed By: #### G LULS #### Point of Care testing , Opaites, Ur Negative Normal Eukmxm=807 [facility] Comment on above: Result Comment: Opia te test includes Codeine and Morphine only. Performed By: #### G LULS #### Point of Care testing , Phencyclidine, Ur Negative Normal Cutoff=25 [facility] Comment on above: Result Comment: Perf ormed at: [facility] [address] [place], [place] [id number] Social Media Intern: Adenike Panchal PhD, Phone: [phone] Performed By: #### G LULS #### Point of Care testing , Urine cocaine metabolite det ectionOrdered By: Chza Frey on 11-17-2024 Benzoylecgonine Ql (U) Urine cocaine metabolite detection Gwywjs=160 [facility] Urobilinogen Test strip (U) [Mass/Vol]Ordered By: Ragini Carmona on 11-17-2024 Urobilinogen (U) [Mass/Vol] Urobilinogen [Mass/volume] in Urine by Test strip Normal [facility] Vitamin B12on 11-17-2024 Cobalamin (Vitamin B12) [Mass/Vol] 313 pg/mL Normal 180-914 [facility] Comment on above: Result Comment: PERF ORMED BY: [place] [address] PATHOLOGIST [employer] LUCERO M.D. Performed By: #### G LULS #### Point of Care testing , Vitamin B12 ser/plasOrdered By: Chaz Frey on 11-17-2024 Cobalamin (Vitamin B12) [Mass/Vol] Vitamin B12 ser/plas 180-914 [facility] X-ray reportOrdered By: Dung Chakraborty on 11-17-2024 Study report [facility] Main [place] [id number] XRay Report Signed Patient: Aaron Olivarez MR#: [id number] : 1960 Acct:[id number] Age/Sex: 64 / M ADM Date: 5 Loc: Room: [address] [place] [address] Type: ADM INOo Attending Dr: Chaz Frey [...] II, MD 11/17/241325 Signed By: 11/17/24 132 [facility] Work Phone: XR chest 1V portableon 11-17 XR chest 1V portable [facility] [place] [address] XRay Report Signed Patient: Aaron Olivarez MR#: [id number] : 1960 Acct:[id number] Age/Sex: 64 / M ADM Date: 11/17/24 Loc: Room: [address] [place] [address] Type: ADM INOo Attending Dr: Chaz Frey [...] MD 11/17/241325 Signed By: 11/17/241325 Normal [facility] aPTT in Platelet poor plasma by Coagulation assayOrdered By: Ragini Carmona on 11-17-2024 aPTT Coag (PPP) [Time] Activated partial thromboplastin time (aPTT) in platelet poor plasma by coagulation a Low 25.1-36.5 [facility] Comment on above: A hematocrit value g reater than 55% may lead to inaccurate results in coagulation testing. Patients having hematocrit values >55% require a special collection tube for coagulation studies. Please contact the laboratory at [phone] for redraw instructions. pH Test strip (U)Ordered By: Ragini Carmona on 11-17-2024 pH (U) pH of Urine by Test strip 5.0-9.0 [facility] CBC with Diffon 07-15-2024 Abs. Basophil 0.04 k/uL Normal 0.00-0.20 [facility] Comment on above: Performed By: #### C DP, CMPX, MG #### [place] [address] Social Media Intern: Dario Almanza MD Abs.Imm.Granulocyte <0.03 Normal 0.00-0.30 [facility] Comment on above: Performed By: #### C DP, CMPX, MG #### [place] [address] Social Media Intern: Dario Almanza MD Abs.Neutrophil (Seg) 3.52 k/uL Normal 1.50-8.10 [facility] Comment on above: Performed By: #### C DP, CMPX, MG #### [facility] [employer] [address] [place] [address] Social Media Intern: Dario Almanza MD Basophils/100 WBC (Bld) 1 % Normal 0-2 [facility] Comment on above: Performed By: #### C DP, CMPX, MG #### [facility] [employer] [address] [place] [address] Social Media Intern: Dario Almanza MD Eosinophils (Bld) [#/Vol] 0.03 10*3/uL Normal 0.00-0.44 [facility] Comment on above: Performed By: #### C DP, CMPX, MG #### [place] [address] Social Media Intern: Dario Almanza MD Eosinophils/100 WBC (Bld) 1 % Normal 1-4 [facility] Comment on above: Performed By: #### C DP, CMPX, MG #### [place] [address] Social Media Intern: Dario Almanza MD Erythrocyte distribution width (RBC) [Ratio] 13.1 % Normal 11.8-14.4 [facility] Comment on above: Performed By: #### C DP, CMPX, MG #### [place] [address] Social Media Intern: Dario Almanza MD Hematocrit (Bld) [Volume fraction] 42.4 % Normal 40.7-50.3 [facility] Comment on above: Performed By: #### C DP, CMPX, MG #### [place] [address] Social Media Intern: Dario Almanza MD Hemoglobin (Bld) [Mass/Vol] 13.7 g/dL Normal 13.0-17.0 [facility] Comment on above: Performed By: #### C DP, CMPX, MG #### [place] [address] Social Media Intern: Dario Almanza MD Immature granulocytes/100 WBC (Bld) 0 % Normal 0 [facility] Comment on above: Performed By: #### C DP, CMPX, MG #### [place] [address] Social Media Intern: Dario Almanza MD Lymphocytes (Bld) [#/Vol] 1.19 10*3/uL Normal 1.10-3.70 [facility] Comment on above: Performed By: #### C DP, CMPX, MG #### [address] [address] Social Media Intern: Dario Almanza MD Lymphocytes/100 WBC (Bld) 22 % Low 24-43 [facility] Comment on above: Performed By: #### C DP, CMPX, MG #### [place] [address] Social Media Intern: Dario Almanza MD MCH (RBC) [Entitic mass] 29.6 pg Normal 25.2-33.5 [facility] Comment on above: Performed By: #### C DP, CMPX, MG #### [place] [address] Social Media Intern: Dario Almanza MD MCHC (RBC) [Mass/Vol] 32.3 g/dL Normal 28.4-34.8 [facility] Comment on above: Performed By: #### C DP, CMPX, MG #### [place] [address] Social Media Intern: Dario Almanza MD MCV (RBC) [Entitic vol] 91.6 fL Normal 82.6-102.9 [facility] Comment on above: Performed By: #### C DP, CMPX, MG #### [place] [address] Social Media Intern: Dario Almanza MD Monocytes (Bld) [#/Vol] 0.61 10*3/uL Normal 0.10-1.20 [facility] Comment on above: Performed By: #### C DP, CMPX, MG #### [place] [address] Social Media Intern: Dario Almanza MD Monocytes/100 WBC (Bld) 11 % Normal 3-12 [facility] Comment on above: Performed By: #### C DP, CMPX, MG #### [facility] [employer] [address] [place] [address] Social Media Intern: Dario Almanza MD Neutrophil (Seg) 65 % Normal 36-65 [facility] Comment on above: Performed By: #### C DP, CMPX, MG #### [address] [address] Social Media Intern: Dario Almanza MD NRBC Automated 0.0 per 100 WBC Normal 0.0 [facility] Comment on above: Performed By: #### C DP, CMPX, MG #### [address] [address] Social Media Intern: Dario Almanza MD Platelet mean volume (Bld) [Entitic vol] 9.2 fL Normal 8.1-13.5 [facility] Comment on above: Performed By: #### C DP, CMPX, MG #### [address] [address] Social Media Intern: Dario Almanza MD Platelets (Bld) [#/Vol] 227 10*3/uL Normal 138-453 [facility] Comment on above: Performed By: #### C DP, CMPX, MG #### [address] [address] Social Media Intern: Dario Almanza MD RBC (Bld) [#/Vol] 4.63 10*6/uL Normal 4.21-5.77 [facility] Comment on above: Performed By: #### C DP, CMPX, MG #### [address] [address] Social Media Intern: Dario Almanza MD WBC (Bld) [#/Vol] 5.4 10*3/uL Normal 3.5-11.3 [facility] Comment on above: Performed By: #### C DP, CMPX, MG #### [address] [place] [address] Social Media Intern: Dario Almanza MD Comp Metabolic Pr/rfx MGon 0 07-15-2024 Albumin [Mass/Vol] 3.8 g/dL Normal 3.5-5.2 [facility] Comment on above: Performed By: #### C DP, CMPX, MG #### [facility] [employer] [address] [place] [address] Social Media Intern: Dario Almanza MD Albumin/Glob Ratio 2.0 Normal 1.0-2.5 [facility] Comment on above: Performed By: #### C DP, CMPX, MG #### [facility] [employer] [address] [place] [address] Social Media Intern: Dario Almanza MD Alkaline Phos 104 U/L Normal 40-129 [facility] Comment on above: Performed By: #### C DP, CMPX, MG #### [facility] [employer] [address] [place] [address] Social Media Intern: Dario Almanza MD ALT [Catalytic activity/Vol] 7 U/L Low 10-50 [facility] Comment on above: Performed By: #### C DP, CMPX, MG #### [facility] [employer] [address] [place] [address] Social Media Intern: Dario Almanza MD Anion gap [Moles/Vol] 7 mmol/L Low 9-16 [facility] Comment on above: Performed By: #### C DP, CMPX, MG #### [facility] [employer] [address] [place] [address] Social Media Intern: Dario Almanza MD AST [Catalytic activity/Vol] 20 U/L Normal 10-50 [facility] Comment on above: Performed By: #### C DP, CMPX, MG #### [facility] [employer] [address] [place] [address] Social Media Intern: Dario Almanza MD Bilirubin [Mass/Vol] 0.6 mg/dL Normal 0.00-1.20 [facility] Comment on above: Performed By: #### C DP, CMPX, MG #### [facility] [employer] [address] [place] [address] Social Media Intern: Dario Almanza MD Calcium [Mass/Vol] 9.3 mg/dL Normal 8.6-10.4 [facility] Comment on above: Performed By: #### C DP, CMPX, MG #### [facility] [employer] [address] [place] [address] Social Media Intern: Dario Almanza MD Chloride [Moles/Vol] 103 mmol/L Normal 98-107 [facility] Comment on above: Performed By: #### C DP, CMPX, MG #### [address] [address] Social Media Intern: Dario Almanza MD CO2 [Moles/Vol] 28 mmol/L Normal 20-31 [facility] Comment on above: Performed By: #### C DP, CMPX, MG #### [facility] [employer] [address] [place] [address] Social Media Intern: Dario Almanza MD Creatinine [Mass/Vol] 0.9 mg/dL Normal 0.70-1.20 [facility] Comment on above: Performed By: #### C DP, CMPX, MG #### [facility] [employer] [address] [place] [address] Social Media Intern: Dario Almanza MD GFR/1.73 sq M.predicted among non-blacks MDRD (S/P/Bld) [Vol rate/Area] mL/min/{1.73_m2} Normal >60 [facility] Comment on above: Result Comment: [...] #### C DP, CMPX, MG #### [facility] [address] [place] [address] Social Media Intern: Dario Almanza MD Glucose [Mass/Vol] 95 mg/dL Normal 74-99 [facility] Comment on above: Performed By: #### C DP, CMPX, MG #### [facility] [employer] [address] [place] [address] Social Media Intern: Dario Almanza MD Potassium [Moles/Vol] 3.4 mmol/L Low 3.7-5.3 [facility] Comment on above: Performed By: #### C DP, CMPX, MG #### [facility] [address] [place] [address] Social Media Intern: Dario Almanza MD Protein [Mass/Vol] 5.8 g/dL Low 6.6-8.7 [facility] Comment on above: Performed By: #### C DP, CMPX, MG #### [facility] [address] [place] [address] Social Media Intern: Dario Almanza MD Sodium [Moles/Vol] 138 mmol/L Normal 136-145 [facility] Comment on above: Performed By: #### C DP, CMPX, MG #### [facility] [address] [place] [address] Social Media Intern: Dario Almanza MD Urea nitrogen [Mass/Vol] 15 mg/dL Normal 8-23 [facility] Comment on above: Performed By: #### C DP, CMPX, MG #### [facility] [address] [place] [address] Social Media Intern: Dario Almanza MD Magnesiumon 07-15-2024 Magnesium [Mass/Vol] 2.0 mg/dL Normal 1.6-2.4 [facility] Comment on above: Performed By: #### C DP, CMPX, MG #### [facility] [employer] [facility] [place] [address] Social Media Intern: Dario Almanza MD BUN, POCon 07-14-2024 Urea nitrogen [Mass/Vol] 18 mg/dL Normal 8-[address] [facility] [address] BRAIN PERFUSIONon 024 CT [...] unremarkable CT and neck. Interpreted by: Edgar Montilal MD Signed by: Edgar Montilla MD 07/14/24 Final result Normal [facility] CTA HEAD NECK W CONTRASTon 0 [...] Edgar Montilla MD 07/14/24 Final result Normal [facility] Calcium, Ionic (POC)on 07-14 Calcium [Moles/Vol] 1.11 mmol/L Low 1.15-1.33 [facility] Creatinine w/GFR, POCon Creatinine [Mass/Vol] 1.0 mg/dL Normal 0.51-1.19 [facility] GFR/1.73 sq M.predicted among non-blacks MDRD (S/P/Bld) [Vol rate/Area] 84 mL/min/{1.73_m2} Normal >60 [facility] Comment on above: Result Comment: [...] Uron 2023 Amphetamine(s),Ur Positive Abnormal NEG [facility] Comment on above: Result Comment: Cuto ff: 1000 ng/mL Performed By: #### U AMIC, MARIA D #### [facility] [address] [place] [address] Social Media Intern: Dario Almanza MD Benzodiazepine(s) Positive Abnormal NEG [facility] Comment on above: Result Comment: Cuto ff: 200 ng/ml Performed By: #### U AMIC, MRAIA D #### [facility] [address] [place] [address] Social Media Intern: Dario Almanza MD Cannabinoid(s),Ur Positive Abnormal NEG [facility] Comment on above: Result Comment: Cuto ff: 50 ng/ml Performed By: #### U AMIC, MARIA D #### [address] [address] Social Media Intern: Dario Almanza MD Interpretive Info Assay provides rapid clinical screening only. Presumptive positive results for Normal [facility] Comment on above: Result Comment: lega l purposes should be confirmed by another method. To request confirmation, please call the lab within 7 days of sample submission. Performed By: #### U AMIC, MARIA D #### [facility] [employer] [address] [place] [address] Social Media Intern: Dario Almanza MD Barbiturate(s),Ur Negative Normal [facility] [facility] Comment on above: Result Comment: Cuto ff: 200 ng/ml Performed By: #### U AMIC, MARIA D #### [address] [address] Social Media Intern: Dario Almanza MD Cocaine Metabolite Negative Normal NEG [facility] Comment on above: Result Comment: Cuto ff: 300 ng/ml Performed By: #### U AMIC, MARIA D #### [facility] [employer] [address] [place] [address] Social Media Intern: Dario Almanza MD Fentanyl, Urine Negative Normal NEG [facility] Comment on above: Result Comment: Cuto ff: 5 ng/ml Performed By: #### U AMIC, MARIA D #### [facility] [employer] [address] [place] [address] Social Media Intern: Dario Almanza MD Methadone Ql (U) Negative Normal NEG [facility] Comment on above: Result Comment: Cuto ff: 300 ng/ml Performed By: #### U AMIC, MARIA D #### [facility] [address] [place] [address] Social Media Intern: Dario Almanza MD Opiate(s), Ur Negative Normal NEG [facility] Comment on above: Result Comment: Cuto ff: 300 ng/ml Performed By: #### U AMIC, MARIA D #### [facility] [address] [place] [address] Social Media Intern: Dario Almanza MD Oxycodone, Urine Negative Normal NEG [facility] Comment on above: Result Comment: Cuto ff: 100 ng/ml Performed By: #### U AMIC, MARIA D #### [facility] [address] [place] [address] Social Media Intern: Dario Almanza MD Phencyclidine, Ur Negative Normal NEG [facility] Comment on above: Result Comment: Cuto ff: 25 ng/ml Performed By: #### U AMIC, MARIA D #### [facility] [address] [place] [address] Social Media Intern: Dario Almanza MD Electrolyteson 07-14-2024 Anion gap [Moles/Vol] 9 mmol/L Normal 7-16 [facility] Chloride [Moles/Vol] 101 mmol/L Normal 98-107 [facility] CO2 [Moles/Vol] 32 mmol/L High 22-30 [facility] Potassium [Moles/Vol] 4.0 mmol/L Normal 3.5-4.5 [facility] Sodium [Moles/Vol] 141 mmol/L Normal 138-146 [facility] Glucose (POC)on 07-14-2024 Glucose [Mass/Vol] 172 mg/dL High 74-100 [facility] Hgb/Hct, POCon 07-14-2024 Hematocrit (Bld) [Volume fraction] 43 % Normal 41-53 [facility] Hemoglobin (Bld) [Mass/Vol] 14.8 g/dL Normal 13.5-17.5 [facility] Lactic Acidon 07-14-2024 Lactic Acid,Whole Bl 1.7 mmol/L Normal 0.7-2.1 [facility] Comment on above: Performed By: #### E DTOX, LACTIC #### [facility] [address] [place] [address] Social Media Intern: Dario Almanza MD Lactic Acid (POC)on 07-14-20 24 Lactate [Moles/Vol] 2.8 mmol/L High 0.56-1.39 [facility] MRI BRAIN W WO CONTRASTon [...] collection present. The proximal portions of the [place] of Lopez demonstrate normal flow voids. ORBITS: [...] Edgar Montilla MD 07/14/24 Final result Normal [facility] Stroke Panelon 07-14-2024 Abs. Basophil 0.06 k/uL Normal 0.00-0.20 [facility] Comment on above: Performed By: #### S TITUSKE #### [place] [address] Social Media Intern: Dario Almanza MD Abs.Imm.Granulocyte 0.00 k/uL Normal 0.00-0.30 [facility] Comment on above: Performed By: #### S TITUSKE #### [place] [address] Social Media Intern: Dario Almanza MD Abs.Neutrophil (Seg) 5.40 k/uL Normal 1.50-8.10 [facility] Comment on above: Performed By: #### S KAY #### [place] [address] Social Media Intern: Dario Almanza MD Basophils/100 WBC (Bld) 1 % Normal 0-2 [facility] Comment on above: Performed By: #### S KAY #### [place] [address] Social Media Intern: Dario Almanza MD Eosinophils (Bld) [#/Vol] 0.00 10*3/uL Normal 0.00-0.44 [facility] Comment on above: Performed By: #### S TITUSKE #### [address] [address] Social Media Intern: Dario Almanza MD Eosinophils/100 WBC (Bld) 0 % Low 1-4 [facility] Comment on above: Performed By: #### S TITUSKE #### [address] [address] Social Media Intern: Dario Almanza MD Immature granulocytes/100 WBC (Bld) 0 % Normal 0 [facility] Comment on above: Performed By: #### S TROKE #### [address] [address] Social Media Intern: Dario Almanza MD Lymphocytes (Bld) [#/Vol] 0.43 10*3/uL Low 1.10-3.70 [facility] Comment on above: Performed By: #### S TROKE #### [address] [address] Social Media Intern: Dario Almanza MD Lymphocytes/100 WBC (Bld) 7 % Low 24-43 [facility] Comment on above: Performed By: #### S TROKE #### [address] [address] Social Media Intern: Dario Almanza MD Monocytes (Bld) [#/Vol] 0.31 10*3/uL Normal 0.10-1.20 [facility] Comment on above: Performed By: #### S TROKE #### [address] [address] Social Media Intern: Dario Almanza MD Monocytes/100 WBC (Bld) 5 % Normal 3-12 [facility] Comment on above: Performed By: #### S TROKE #### [address] [address] Social Media Intern: Dario Almanza MD Morphology David (Bld) [Interp] Normal Normal [facility] Comment on above: Performed By: #### S TROKE #### [address] [address] Social Media Intern: Dario Almanza MD Neutrophil (Seg) 87 % High 36-65 [facility] Comment on above: Performed By: #### S TROKE #### [address] [address] Social Media Intern: Dario Almanza MD Anion gap [Moles/Vol] 8 mmol/L Low 9-16 [facility] Comment on above: Performed By: #### S TROKE #### [address] [address] Social Media Intern: Dario Almanza MD Calcium [Mass/Vol] 8.5 mg/dL Low 8.6-10.4 [facility] Comment on above: Performed By: #### S TROKE #### [address] [address] Social Media Intern: Dario Almanza MD Chloride [Moles/Vol] 102 mmol/L Normal 98-107 [facility] Comment on above: Performed By: #### S TROKE #### [address] [address] Social Media Intern: aDrio Almanza MD CK [Catalytic activity/Vol] 101 U/L Normal 39-308 [facility] Comment on above: Performed By: #### S TROKE #### [address] [address] Social Media Intern: Dario Almanza MD CO2 [Moles/Vol] 27 mmol/L Normal 20-31 [facility] Comment on above: Performed By: #### S TROKE #### [address] [address] Social Media Intern: Dario Almanza MD Creatinine [Mass/Vol] 1.1 mg/dL Normal 0.70-1.20 [facility] Comment on above: Performed By: #### S TROKE #### [address] [address] Social Media Intern: Draio Almanza MD GFR/1.73 sq M.predicted among non-blacks MDRD (S/P/Bld) [Vol rate/Area] 74 mL/min/{1.73_m2} Normal >60 [facility] Comment on above: Result Comment: [...] secretion. Performed By: #### S TITUSKE #### [facility] [employer] [address] [place] [address] Social Media Intern: Dario Almanza MD Glucose [Mass/Vol] 174 mg/dL High 74-99 [facility] Comment on above: Performed By: #### S KAY #### [address] [address] Social Media Intern: Dario Almanza MD Myoglobin [Mass/Vol] 106 ng/mL High 28-72 [facility] Comment on above: Performed By: #### S TITUSKE #### [facility] [facility] [address] [place] [address] Social Media Intern: Dario Almanza MD Potassium [Moles/Vol] 4.0 mmol/L Normal 3.7-5.3 [facility] Comment on above: Result Comment: SPEC IMEN SLIGHTLY HEMOLYZED, RESULTS MAY BE ADVERSELY AFFECTED. Performed By: #### S TITUSKE #### [facility] [employer] [address] [place] [address] Social Media Intern: Dario Almanza MD Sodium [Moles/Vol] 137 mmol/L Normal 136-145 [facility] Comment on above: Performed By: #### S TITUSKE #### [address] [address] Social Media Intern: Dario Almanza MD Troponin, High Sens 24 ng/L High 0-22 [facility] Comment on above: Result Comment: High Sensitivity Troponin values cannot be compared with other Troponin methodologies. Performed By: #### S KAY #### [facility] [employer] [address] [place] [address] Social Media Intern: Dario Almanza MD Urea nitrogen [Mass/Vol] 16 mg/dL Normal 8-23 [facility] Comment on above: Performed By: #### S KAY #### [address] [address] Social Media Intern: Dario Almanza MD aPTT Coag (Bld) [Time] 22.1 s Low 23.0-36.5 [facility] Comment on above: Result Comment: IV Heparin Therapy Range: 66.0-92.0 sec Performed By: #### S KAY #### [address] [address] Social Media Intern: Dario Almanza MD INR Coag (PPP) [Relative time] 1.1 {INR} Normal [facility] Comment on above: Result Comment: Therapeutic Range: Moderate Anticoagulant Intensity: INR = 2.0-3.0 High Anticoagulant Intensity: INR = 2.5-3.5 Performed By: #### S KAY #### [address] [address] Social Media Intern: Dario Almanza MD PT Coag (PPP) [Time] 13.6 s Normal 11.7-14.9 [facility] Comment on above: Performed By: #### S KAY #### [facility] [address] [place] [address] Social Media Intern: Dario Almanza MD Erythrocyte distribution width (RBC) [Ratio] 13.2 % Normal 11.8-14.4 [facility] Comment on above: Performed By: #### S KAY #### [facility] [address] [place] [address] Social Media Intern: Dario Almanza MD Hematocrit (Bld) [Volume fraction] 42.4 % Normal 40.7-50.3 [facility] Comment on above: Performed By: #### S KAY #### [place] [address] Social Media Intern: Dario Almanza MD Hemoglobin (Bld) [Mass/Vol] 13.9 g/dL Normal 13.0-17.0 [facility] Comment on above: Performed By: #### S KAY #### [place] [address] Social Media Intern: Dario Almanza MD MCH (RBC) [Entitic mass] 29.6 pg Normal 25.2-33.5 [facility] Comment on above: Performed By: #### S KAY #### [place] [address] Social Media Intern: Dario Almanza MD MCHC (RBC) [Mass/Vol] 32.8 g/dL Normal 28.4-34.8 [facility] Comment on above: Performed By: #### S KAY #### [place] [address] Social Media Intern: Dario Almanza MD MCV (RBC) [Entitic vol] 90.2 fL Normal 82.6-102.9 [facility] Comment on above: Performed By: #### S KAY #### [place] [address] Social Media Intern: Dario Almanza MD NRBC Automated 0.0 per 100 WBC Normal 0.0 [facility] Comment on above: Performed By: #### S KAY #### [place] [address] Social Media Intern: Dario Almanza MD Platelet mean volume (Bld) [Entitic vol] 9.3 fL Normal 8.1-13.5 [facility] Comment on above: Performed By: #### S TROKE #### [facility] [employer] [address] [place] [address] Social Media Intern: Dario Almanza MD Platelets (Bld) [#/Vol] 267 10*3/uL Normal 138-453 [facility] Comment on above: Performed By: #### S KAY #### [address] [address] Social Media Intern: Dario Almanza MD RBC (Bld) [#/Vol] 4.70 10*6/uL Normal 4.21-5.77 [facility] Comment on above: Performed By: #### S KAY #### [address] [address] Social Media Intern: Dario Almanza MD WBC (Bld) [#/Vol] 6.2 10*3/uL Normal 3.5-11.3 [facility] Comment on above: Performed By: #### S KAY #### [address] [address] Social Media Intern: Dario Almanza MD TSH w/reflex to FT4on 2023 Thyroid Stim. Horm. 1.44 uIU/mL Normal 0.27-4.20 [facility] Comment on above: Performed By: #### T SHX ####[place], [place] [address])[phone] Director: Dario Almanza MD Tox Scr, Bld, EDon 4 Acetaminophen [Mass/Vol] ug/mL Low 10-30 [facility] Comment on above: Performed By: #### E DTOX, LACTIC #### [facility] [employer] [address] [place] [address] Social Media Intern: Dario Almanza MD Ethanol [Mass/Vol] mg/dL Normal <10 [facility] Comment on above: Performed By: #### E DTOX, LACTIC #### [address] [address] Social Media Intern: Dario Almanza MD Ethanol percent <0.010 Normal <0.010 [facility] Comment on above: Performed By: #### E DTOX, LACTIC #### [address] [address] Social Media Intern: Dario Almanza MD Salicylate <0.5 Normal 0.0-10.0 [facility] Comment on above: Performed By: #### E DTOX, LACTIC #### [address] [address] Social Media Intern: Dario Almanza MD Urinalysis w/ Microon 2023 Bacteria None Normal NONE [facility] Comment on above: Performed By: #### U AMIC, MARIA D #### [address] [address] Social Media Intern: Dario Almanza MD Bilirubin, SemiQt,Ur Negative Normal NEG [facility] Comment on above: Performed By: #### U AMIC, MARIA D #### [address] [address] Social Media Intern: Dario Almanza MD Blood, Urine Negative Normal NEG [facility] Comment on above: Performed By: #### U AMIC, MARIA D #### [address] [address] Social Media Intern: Dario Almanza MD Casts 5 TO 10 HYALINE Normal 0-8 [facility] Comment on above: Result Comment: Refe rence range defined for non-centrifuged specimen. Performed By: #### U AMIC, MARIA D #### [address] [address] Social Media Intern: Dario Almanza MD Clarity (U) Clear Normal CLEAR [facility] Comment on above: Performed By: #### U AMIC, MARIA D #### [facility] [address] [place] [address] Social Media Intern: Dario Almanza MD Color (U) Yellow Normal YEL [facility] Comment on above: Performed By: #### U AMIC, MARIA D #### [address] [address] Social Media Intern: Dario Almanza MD Epithelial cells LM Ql (Urine sed) 0 TO 2 Normal 0-5 [facility] Comment on above: Performed By: #### U AMIC, MARIA D #### [address] [address] Social Media Intern: Dario Almanza MD Glucose Ql (U) 1+ mg/dL Abnormal NEG [facility] Comment on above: Performed By: #### U AMIC, MARIA D #### [address] [address] Social Media Intern: Dario Almanza MD Ketones Ql (U) Negative Normal NEG [facility] Comment on above: Performed By: #### U AMIC, MARIA D #### [address] [address] Social Media Intern: Dario Almanza MD Leukocyte esterase Test strip Ql (U) Negative Normal NEG [facility] Comment on above: Performed By: #### U AMIC, MARIA D #### [facility] [employer] [address] [place] [address] Social Media Intern: Dario Almanza MD Nitrite,Ur Negative Normal NEG [facility] Comment on above: Performed By: #### U AMIC, MARIA D #### [facility] [employer] [address] [place] [address] Social Media Intern: Dario Almanza MD PH,Ur 7.0 Normal 5.0-8.0 [facility] Comment on above: Performed By: #### U AMIC, MARIA D #### [address] [address] Social Media Intern: Dario Almanza MD Protein Ql (U) 1+ mg/dL Abnormal NEG [facility] Comment on above: Performed By: #### U AMIC, MARIA D #### [address] [address] Social Media Intern: Dario Almanza MD Spec. Beaver,Ur 1.044 High 1.005-1.03 0 [facility] Comment on above: Performed By: #### U AMIC, MARIA D #### [address] [address] Social Media Intern: Dario Almanza MD Urine RBC's 0 TO 2 Normal 0-4 [facility] Comment on above: Result Comment: Refe rence range defined for non-centrifuged specimen. Performed By: #### U AMIC, MARIA D #### [facility] [employer] [address] [place] [address] Social Media Intern: Dario Almanza MD Urine WBC's None Normal 0-5 [facility] Comment on above: Performed By: #### U AMIC, MARIA D #### [address] [address] Social Media Intern: Dario Almanza MD Urobilinogen,Ur Normal Normal 0.0-1.0 [facility] Comment on above: Performed By: #### U AMIC, MARIA D #### [address] [address] Social Media Intern: Dario Almanza MD Venous Bld Gas,POCon 024 HCO3 (Bld) [Moles/Vol] 31.9 mmol/L High 22.0-29.0 [facility] Oxygen saturation in Blood 45.4 % Low 60.0-85.0 [facility] pCO2, Venous 47.5 mm Hg Normal 41.0-51.0 [facility] pH,Venous 7.435 High 7.320-7.43 0 [facility] pO2, Venous 24.6 mm Hg Low 30.0-50.0 [facility] Positive Base Excess (calc) 6.4 mmol/L High 0.0-3.0 [facility] XR ABDOMEN (KUB) (SINGLE AP [...] Jt Gray MD 07/14/24 Final result Normal [facility] XR CHEST PORTABLEon 07-14-20 XR [...] Basil Witt DO 07/14/24 Final result Normal [facility] Calcium [Mass/volume] in Ser um or PlasmaOrdered By: Janae Jose on 05-05-2024 Calcium [Mass/Vol] 9.0 mg/dL 8.6-10.3 [facility] Carbon dioxide, total [Moles /volume] in Serum or PlasmaOrdered By: Janae Jose on 05-05-2024 CO2 [Moles/Vol] 30.3 mmol/L 21.0-31.0 [facility] Chloride [Moles/volume] in S andrei or PlasmaOrdered By: Janae Jose on 05-05-2024 Chloride [Moles/Vol] 98 mmol/L 98-107 [facility] Creatinine [Mass/volume] in Serum or PlasmaOrdered By: Janae Jose on 05-05-2024 Creatinine [Mass/Vol] 0.97 mg/dL 0.70-1.30 [facility] Glucose [Mass/volume] in Ser um or PlasmaOrdered By: Janae Jose on 05-05-2024 Glucose [Mass/Vol] 105 mg/dL 70-100 [facility] Comment on above: ADA recommended refe rence rangeRandom Glucose Reference Range is dependent on time and content of last meal. Glucose of more than 200 mg/dL in a nonstressed, ambulatory subject supports the diagnosis of Diabetes Mellitus. No Panel InformationOrdered By: Janae Joes on 05-05-2024 Estimated GFR (CKD-EPI) > 60.0 mL/Min [facility] Creatinine Clearance (Chem 82.90 [facility] Potassium [Moles/volume] in Serum or PlasmaOrdered By: Janae Jose on 05-05-2024 Potassium [Moles/Vol] 4.4 mmol/L 3.5-5.1 [facility] Serum or plasma anion gap de terminationOrdered By: Janae Jose on 05-05-2024 Anion gap [Moles/Vol] 8.1 mmol/L 6.0-15.0 [facility] Sodium [Moles/volume] in Ser um or PlasmaOrdered By: Janae Jose on 05-05-2024 Sodium [Moles/Vol] 132 mmol/L 136-145 [facility] Urea nitrogen [Mass/volume] in Serum or PlasmaOrdered By: Janae Jose on 05-05-2024 Urea nitrogen [Mass/Vol] 25 mg/dL 7-25 [facility] Ammonia [Moles/volume] in Pl asmaOrdered By: Víctor Agrawal on 05-04-2024 Ammonia (P) [Moles/Vol] 22 umol/L 1135 [facility] Basophils Auto (Bld) [#/Vol] Ordered By: Magdy Douglass on 05-04-2024 Basophils (Bld) [#/Vol] 0.0 10*3/uL 0.0-0.2 [facility] Basophils/100 WBC Auto (Bld) Ordered By: Magdy Douglass on 05-04-2024 Basophils/100 WBC (Bld) 0.1 % . [facility] Eosinophils Auto (Bld) [#/Vo l]Ordered By: Magdy Douglass on 05-04-2024 Eosinophils (Bld) [#/Vol] 0.0 10*3/uL 0.0-0.45 [facility] Eosinophils/100 WBC Auto (Bl d)Ordered By: Magdy Douglass on 05-04-2024 Eosinophils/100 WBC (Bld) 0.0 % . [facility] Erythrocyte distribution wid th Auto (RBC) [Ratio]Ordered By: Magdy Douglass on 05-04-2024 Erythrocyte distribution width (RBC) [Ratio] 16.5 % 12.0-14.8 [facility] Folate [Mass/volume] in Seru m or PlasmaOrdered By: Janae Jose on 05-04-2024 Folate [Mass/Vol] 9.7 ng/mL >5.9 [facility] Comment on above: Folate reference ran ge: >5.9 ng/mlThe WHO technical consultation on folate and vitamin [id number] has determined that folate concentrations lessthan 4 ng/ml are considered deficient. Hematocrit Auto (Bld) [Volum e fraction]Ordered By: Magdy Douglass on 05-04-2024 Hematocrit (Bld) [Volume fraction] 45.0 % 38.8-50.0 [facility] Hemoglobin [Mass/volume] in BloodOrdered By: Magdy Douglass on 05-04-2024 Hemoglobin (Bld) [Mass/Vol] 14.8 g/dL 13.0-17.0 [facility] Leukocytes [#/volume] correc srinivas for nucleated erythrocytes in Blood by Automated counOrdered By: Magdy Douglass on 05-04-2024 WBC corrected for nucl RBC Auto (Bld) [#/Vol] 9.6 10*3/uL 4.1-10.5 [facility] Lymphocytes Auto (Bld) [#/Vo l]Ordered By: Magdy Douglass on 05-04-2024 Lymphocytes (Bld) [#/Vol] 0.5 10*3/uL 1.00-4.8 [facility] Lymphocytes/100 WBC Auto (Bl d)Ordered By: Magdy Douglass on 05-04-2024 Lymphocytes/100 WBC (Bld) 4.9 % . [facility] MCH Auto (RBC) [Entitic mass ]Ordered By: Magdy Douglass on 05-04-2024 MCH (RBC) [Entitic mass] 29.8 pg 27.5-35.2 [facility] MCHC Auto (RBC) [Mass/Vol]Or dered By: Magdy Douglass on 05-04-2024 MCHC (RBC) [Mass/Vol] 32.9 g/dL 32.5-35.6 [facility] MCV Auto (RBC) [Entitic vol] Ordered By: Magdy Douglass on 05-04-2024 MCV (RBC) [Entitic vol] 90.4 fL 83.5-101 [facility] Monocytes Auto (Bld) [#/Vol] Ordered By: Magdy Douglass on 05-04-2024 Monocytes (Bld) [#/Vol] 0.3 10*3/uL 0.0-0.8 [facility] Monocytes/100 WBC Auto (Bld) Ordered By: Magdy Douglass on 05-04-2024 Monocytes/100 WBC (Bld) 3.0 % . [facility] Neutrophils Auto (Bld) [#/Vo l]Ordered By: Magdy Douglass on 05-04-2024 Neutrophils (Bld) [#/Vol] 8.9 10*3/uL 1.8-7.7 [facility] Neutrophils/100 WBC Auto (Bl d)Ordered By: Magdy Douglass on 05-04-2024 Neutrophils/100 WBC (Bld) 92.0 % . [facility] Nucleated erythrocytes [Pres ence] in Blood by Automated countOrdered By: Magdy Douglass on 05-04-2024 Nucleated RBC Auto Ql (Bld) 0.0 /100{WBC} 0-0.5 [facility] Platelet mean volume Auto (B ld) [Entitic vol]Ordered By: Magdy Douglass on 05-04-2024 Platelet mean volume (Bld) [Entitic vol] 6.5 fL 6.6-10.1 [facility] Platelets Auto (Bld) [#/Vol] Ordered By: Magdy Douglass on 05-04-2024 Platelets (Bld) [#/Vol] 417 10*3/uL 150-450 [facility] RBC Auto (Bld) [#/Vol]Ordere d By: Magdy Douglass on 05-04-2024 RBC (Bld) [#/Vol] 4.97 10*6/uL 3.90-5.60 [facility] Thyrotropin [Units/volume] i n Serum or PlasmaOrdered By: Janae Jose on 05-04-2024 TSH Qn 5.50 m[IU]/L 0.45-5.33 [facility] Vitamin B12 ser/plasOrdered By: Janae Jose on 05-04-2024 Cobalamin (Vitamin B12) [Mass/Vol] 500 pg/mL 180-914 [facility] WBC Auto (Bld) [#/Vol]Ordere d By: Magdy Douglass on 05-04-2024 WBC (Bld) [#/Vol] 9.6 10*3/uL 4.1-10.5 [facility] Alanine aminotransferase [En zymatic activity/volume] in Serum or PlasmaOrdered By: Magdy Douglass on 05-03-2024 ALT [Catalytic activity/Vol] 14 U/L 7-52 [facility] Albumin [Mass/volume] in Ser um or Plasma by Bromocresol green (BCG) dye binding methoOrdered By: Magdy Douglass on 05-03-2024 Albumin BCG dye [Mass/Vol] 3.1 g/dL 3.5-5.7 [facility] Alkaline phosphatase [Enzyma tic activity/volume] in Serum or PlasmaOrdered By: Magdy Douglass on 05-03-2024 ALP [Catalytic activity/Vol] 131 U/L 34-104 [facility] Aspartate aminotransferase [ Enzymatic activity/volume] in Serum or PlasmaOrdered By: Magdy Douglass on 05-03-2024 AST [Catalytic activity/Vol] 12 U/L 13-39 [facility] Bilirubin.total [Mass/volume ] in Serum or PlasmaOrdered By: Magdy Douglass on 05-03-2024 Bilirubin [Mass/Vol] 0.4 mg/dL 0.3-1.0 [facility] Globulin Calc (S) [Mass/Vol] Ordered By: Magdy Douglass on 05-03-2024 Globulin (S) [Mass/Vol] 2.8 g/dL [facility] Protein [Mass/volume] in Ser um or PlasmaOrdered By: Magdy Douglass on 05-03-2024 Protein [Mass/Vol] 5.9 g/dL 6.4-8.9 [facility] Serum or plasma albumin/glob ulin mass ratioOrdered By: Magdy Douglass on 05-03-2024 Albumin/Globulin [Mass ratio] 1.1 {ratio} [facility] C reactive protein [Mass/vol ume] in Serum or PlasmaOrdered By: Magdy Douglass on 05-02-2024 CRP [Mass/Vol] 2.5 mg/dL 0.0-0.5 [facility] Lactate [Moles/volume] in Se rum or PlasmaOrdered By: Magdy Douglass on 05-02-2024 Lactate [Moles/Vol] 0.6 mmol/L 0.5-2.2 [facility] Magnesium [Mass/volume] in S andrei or PlasmaOrdered By: Magdy Douglass on 05-02-2024 Magnesium [Mass/Vol] 2.1 mg/dL 1.9-2.7 [facility] Troponin I.cardiac [Mass/vol ume] in Serum or Plasma by Detection limit <= 0.01 ng/Ordered By: Janae Jose on 05-02-2024 Troponin I.cardiac DL <= 0.01 ng/mL [Mass/Vol] 74.8 pg/mL 0.0-20.0 [facility] Comment on above: Critical Result : Ca lled to and read back by: JAYLAN YAO at: 05/02/2024 15:02:51 by:JANET ACETAMINOPHENon 11-24-2022 Acetaminophen [Mass/Vol] ug/mL Normal 10.0-30.0 [facility] Comment on above: Performed By: #### S ALYC, ACET, CMP, ETH #### [facility] [address] [place] [address] Dr. Renny Azevedo CBC AUTO DIFFon 11-24-2022 BASO # 0.0 103/ul Normal 0.0-0.1 [facility] Comment on above: Performed By: #### C BC #### [facility] [address] [place] [address] Dr. Renny Azevedo Basophils/100 WBC (Bld) 0.8 % Normal 0.2-2.0 [facility] Comment on above: Performed By: #### C BC #### [facility] [address] [place] [address] Dr. Renny Azevedo EO # 0.3 103/ul Normal 0.0-0.7 [facility] Comment on above: Performed By: #### C BC #### [facility] [address] [place] [address] Dr. Renny Azevedo Eosinophils/100 WBC (Bld) 6.2 % Normal 0.9-7.0 [facility] Comment on above: Performed By: #### C BC #### [facility] [address] [place] [address] Dr. Renny Azevedo Erythrocyte distribution width (RBC) [Ratio] 14.8 % Normal 11.0-15.0 [facility] Comment on above: Performed By: #### C BC #### [facility] [address] [place] [address] Dr. Renny Azevedo Hematocrit (Bld) [Volume fraction] 38.6 % Critically low 42.0-54.0 [facility] Comment on above: Performed By: #### C BC #### [facility] [address] [place] [address] Dr. Renny Azevedo Hemoglobin (Bld) [Mass/Vol] 12.6 g/dL Critically low 14.0-18.0 [facility] Comment on above: Performed By: #### C BC #### [facility] [address] [place] [address] Dr. Renny Azevedo IG # 0.01 10e3/ul Normal 0.00-0.03 [facility] Comment on above: Performed By: #### C BC #### [facility] [address] [place] [address] Dr. Renny Azevedo IG % 0.2 % Normal 0.0-0.5 [facility] Comment on above: Performed By: #### C BC #### [facility] [address] [place] [address] Dr. Renny Azevedo LYMPH # 1.4 103/ul Normal 1.2-3.8 [facility] Comment on above: Performed By: #### C BC #### [facility] [address] [place] [address] Dr. Renny Azevedo Lymphocytes/100 WBC (Bld) 28.1 % Normal 20.5-60.0 [facility] Comment on above: Performed By: #### C BC #### [facility] [address] [place] [address] Dr. Renny Azevedo MANUAL DIFF REQ NO Normal [facility] Comment on above: Performed By: #### C BC #### [facility] [address] [place] [address] Dr. Renny Azevedo MCH (RBC) [Entitic mass] 31.0 pg Normal 25.9-34.0 [facility] Comment on above: Performed By: #### C BC #### [facility] [address] [place] [address] Dr. Renny Azevedo MCHC (RBC) [Mass/Vol] 32.6 g/dL Normal 29.9-35.2 [facility] Comment on above: Performed By: #### C BC #### [facility] [address] [place] [address] Dr. Renny Azevedo MCV (RBC) [Entitic vol] 95.1 fL Critically high 80.0-94.0 [facility] Comment on above: Performed By: #### C BC #### [facility] [address] [place] [address] Dr. Renny Azevedo MONO # 0.3 103/ul Normal 0.3-0.8 [facility] Comment on above: Performed By: #### C BC #### [facility] [address] [place] [address] Dr. Renny Azevedo Monocytes/100 WBC (Bld) 5.8 % Normal 1.7-12.0 [facility] Comment on above: Performed By: #### C BC #### [facility] [address] [place] [address] Dr. Renny Azevedo NEUT # 3.0 103/ul Normal 1.4-6.5 [facility] Comment on above: Performed By: #### C BC #### [facility] [address] [place] [address] Dr. Renny Azevedo Neutrophils/100 WBC (Bld) 58.9 % Normal 43.0-75.0 [facility] Comment on above: Performed By: #### C BC #### [facility] [address] [place] [address] Dr. Renny Azevedo Platelet mean volume (Bld) [Entitic vol] 8.8 fL Critically low 9.5-13.5 [facility] Comment on above: Performed By: #### C BC #### [facility] [address] [place] [address] Dr. Renny Azevedo PLT 260 103/ul Normal 150-450 [facility] Comment on above: Performed By: #### C BC #### [facility] [address] [place] [address] Dr. Renny Azevedo RBC 4.06 106/ul Critically low 4.70-6.10 [facility] Comment on above: Performed By: #### C BC #### [facility] [address] [place] [address] Dr. Renny Azevedo WBC 5.0 103/ul Normal 4.0-11.0 [facility] Comment on above: Performed By: #### C #### [facility] [address] [address] CSPINE WO CONon [...] VIC ADAMES Date: 2022-11-24 05:42 Normal [facility] CT FACIAL BONES WO CONon CT FACIAL [...] ANNA RICO Date: 2022-11-24 05:43 Normal [facility] DRUG SCREEN RAPID (URINE)on 11-24-2022 AMP Positive Abnormal NEGATIVE [facility] Comment on above: Performed By: #### D RUGRPD #### [facility] [address] [address] [address] Renny Azevedo BAR Negative Normal NEGATIVE [facility] Comment on above: Performed By: #### D RUGRPD #### [facility] [address] [address] [address] Renny Azevedo BUP Negative Normal NEGATIVE [facility] Comment on above: Performed By: #### D RUGRPD #### [facility] [address] [address] [address] Renny Azevedo BZO Negative Normal NEGATIVE [facility] Comment on above: Performed By: #### D RUGRPD #### [facility] [address] [address] [address] Renny Azevedo SHAYE Positive Abnormal NEGATIVE [facility] Comment on above: Performed By: #### D RUGRPD #### [facility] [address] [place] [address] Dr. Renny Azevedo CUT-OFFS SEE BELOW Normal [facility] Comment on above: Result Comment: AMP (Amphetamine): 500ng/mL, BAR (Barbituates): 200 ng/mL, BZO (Benzodiazepines): 150 ng/mL, BUP (Buprenorphine): 10 ng/mL, SHAYE (Cocaine): 150 ng/mL, mAMP (Methamphetamine): 500 ng/mL, MTD (Methadone): 200 ng/mL, OPI (Opiates): 100 ng/mL, OXY (Oxycodone): 100 ng/mL, PCP (Phencyclidine): 25 ng/mL, PPX (Propoxyphene): 300 ng/mL, THC (Cannabinoids): 50 ng/mL, TCA (Trycyclic Antidepressants): 300 ng/mL Performed By: #### D RUGRPD #### [facility] [address] [place] [address] Dr. Renny Azevedo DRUG CUT HEADER DRUG CLASS TEST SYST EM CUT-OFF CONCENTRATIONS ARE FOLLOWS: Normal [facility] Comment on above: Performed By: #### D RUGRPD #### [facility] [address] [place] [address] Dr. Renny Azevedo mAMP Positive Abnormal NEGATIVE [facility] Comment on above: Performed By: #### D RUGRPD #### [facility] [address] [address] [address] Renny Azevedo MTD Negative Normal NEGATIVE [facility] Comment on above: Performed By: #### D RUGRPD #### [facility] [address] [place] [address] Dr. Renny Azevedo OPI Negative Normal NEGATIVE [facility] Comment on above: Performed By: #### D RUGRPD #### [facility] [address] [place] [address] Dr. Renny Azevedo OXY Negative Normal NEGATIVE [facility] Comment on above: Performed By: #### D RUGRPD #### [facility] [address] [place] [address] Dr. Renny Azevedo PCP Negative Normal NEGATIVE [facility] Comment on above: Performed By: #### D RUGRPD #### [facility] [address] [place] [address] Dr. Renny Azevedo PPX Negative Normal NEGATIVE [facility] Comment on above: Performed By: #### D RUGRPD #### [facility] [address] [place] [address] Dr. Renny Azevedo TCA Negative Normal NEGATIVE [facility] Comment on above: Performed By: #### D RUGRPD #### [facility] [address] [place] [address] Dr. Renny Azevedo THC Negative Normal NEGATIVE [facility] Comment on above: Performed By: #### D RUGRPD #### [facility] [address] [place] [address] Dr. Renny Azevedo ETHANOL (BLD ALC)on 11-24-19 23 ALC NOTE NOTE: 80 mg/dl is th e legal limit for a blood alcohol level Normal [facility] Comment on above: Performed By: #### E TH #### [facility] [address] [place] [address] Dr. Renny Azevedo Ethanol [Mass/Vol] 169 mg/dL Normal [facility] Comment on above: Performed By: #### E TH #### [facility] [address] [place] [address] Dr. Renny Azevedo ALC NOTE NOTE: 80 mg/dl is th e legal limit for a blood alcohol level Normal [facility] Comment on above: Performed By: #### S ALYC, ACET, CMP, ETH #### [facility] [address] [place] [address] Dr. Renny Azevedo Ethanol [Mass/Vol] 239 mg/dL Normal [facility] Comment on above: Performed By: #### S ALYC, ACET, CMP, ETH #### [facility] [address] [place] [address] Dr. Renny Azevedo PROF 14(COMP METB)on 023 Albumin [Mass/Vol] 4.2 g/dL Normal 3.4-5.0 [facility] Comment on above: Performed By: #### S ALYC, ACET, CMP, ETH #### [facility] [address] [place] [address] Dr. Renny Azevedo Albumin/Globulin [Mass ratio] 1.3 {ratio} Normal [facility] Comment on above: Performed By: #### S ALYC, ACET, CMP, ETH #### [facility] [address] [place] [address] Dr. Renny Azevedo ALP [Catalytic activity/Vol] 99 U/L Normal 46-116 [facility] Comment on above: Performed By: #### S ALYC, ACET, CMP, ETH #### [facility] [address] [place] [address] Dr. Renny Azevedo ALT [Catalytic activity/Vol] 157 U/L Critically high 16-63 [facility] Comment on above: Performed By: #### S ALYC, ACET, CMP, ETH #### [facility] [address] [address] [address] Renny Azevedo Anion gap [Moles/Vol] 10.0 mmol/L Normal [facility] Comment on above: Performed By: #### S ALYC, ACET, CMP, ETH #### [facility] [address] [address] [address] Renny Azevedo AST [Catalytic activity/Vol] 362 U/L Critically high 15-37 [facility] Comment on above: Performed By: #### S ALYC, ACET, CMP, ETH #### [facility] [address] [address] [address] Renny Azevedo Bilirubin [Mass/Vol] 0.3 mg/dL Normal 0.2-1.0 [facility] Comment on above: Performed By: #### S ALYC, ACET, CMP, ETH #### [facility] [address] [address] [address] Renny Azevedo Calcium [Mass/Vol] 8.7 mg/dL Normal 8.5-10.1 [facility] Comment on above: Performed By: #### S ALYC, ACET, CMP, ETH #### [facility] [address] [address] [address] Renny Azevedo Chloride [Moles/Vol] 92 mmol/L Critically low 98-107 [facility] Comment on above: Performed By: #### S ALYC, ACET, CMP, ETH #### [facility] [address] [place] [address] Dr. Renny Azevedo CO2 [Moles/Vol] 30.4 mmol/L Normal 21.0-32.0 [facility] Comment on above: Performed By: #### S ALYC, ACET, CMP, ETH #### [facility] [address] [place] [address] Dr. Renny Azevedo Creatinine [Mass/Vol] 1.60 mg/dL Critically high 0.70-1.30 [facility] Comment on above: Performed By: #### S ALYC, ACET, CMP, ETH #### [facility] [address] [place] [address] Dr. Renny Azevedo EGFR-AF [place]UG[place] 53 mL/min/1.73m2 Critically low >=60 [facility] Comment on above: Performed By: #### S ALYC, ACET, CMP, ETH #### [facility] [address] [place] [address] Dr. Renny Azevedo EGFR-NON AF [place] 44 mL/min/1.73m2 Critically low >=60 [facility] Comment on above: Performed By: #### S ALYC, ACET, CMP, ETH #### [facility] [address] [place] [address] Dr. Renny Azevedo Globulin (S) [Mass/Vol] 3.2 g/dL Normal [facility] Comment on above: Performed By: #### S ALYC, ACET, CMP, ETH #### [facility] [address] [place] [address] Dr. Renny Azevedo Glucose [Mass/Vol] 82 mg/dL Normal 74-106 [facility] Comment on above: Performed By: #### S ALYC, ACET, CMP, ETH #### [facility] [address] [address] [address] Renny Azevedo Potassium [Moles/Vol] 3.4 mmol/L Critically low 3.5-5.1 [facility] Comment on above: Performed By: #### S ALYC, ACET, CMP, ETH #### [facility] [address] [place] [address] Dr. Renny Azevedo Protein [Mass/Vol] 7.4 g/dL Normal 6.4-8.2 [facility] Comment on above: Performed By: #### S ALYC, ACET, CMP, ETH #### [facility] [address] [address] [address] Renny Azevedo Sodium [Moles/Vol] 129 mmol/L Critically low 136-[address] [facility] Comment on above: Performed By: #### S ALYC, ACET, CMP, ETH #### [facility] [address] [place] [address] Dr. Renny Azevedo Urea nitrogen [Mass/Vol] 17.0 mg/dL Normal 7.0-18.0 [facility] Comment on above: Performed By: #### S ALYC, ACET, CMP, ETH #### [facility] [address] [place] [address] Dr. Renny Azevedo Urea nitrogen/Creatinine [Mass ratio] 10.6 mg/mg Normal [facility] Comment on above: Performed By: #### S ALYC, ACET, CMP, ETH #### [facility] [address] [place] [address] Dr. Renny Azevedo SALICYLATEon 11-24-2022 SALICYLATE 4.7 mg/dL Normal <=19.9 [facility] Comment on above: Performed By: #### S ALYC, ACET, CMP, ETH #### [facility] [address] [place] [address] LUMBAR SPINE WO [...] by:VANESA Tavaresigned by:Jay Gross MD10/14/18Final result Normal [facility] DISCHARGE SUMMARYon 02-06-20 DISCHARGE SUMMARY [place] [id number] DISCHARGE SUMMARYPATIENT NAME: AARON OLIVAREZ : 1960MED REC NO: [id number] ROOM: 0130ACCOUNT NO: [id number] ADMIT DATE: 01/29/2018PROVIDER: Elian Gladysurti DISCH DATE:HISTORY [...] . With this, he is admitted to [facility] from [place].PAST PSYCHIATRIC HISTORY: History of major depression and [...] patient [facility]. [facility]ELIAN INDURTID: 02/05/2018 9:02:31 KIMBERLY/[email or web address]_[email or web address]#: [id number] Doc#: [id number]: Normal [facility] CBC with Diffon 01-30-2018 Abs. Basophil 0.00 k/uL Normal 0.0-0.2 [facility] Comment on above: Performed By: #### C P, LIPR, TSHX, CDP ####[facility] [place] [address] #### T3, T4 ####[address] [place] [address] Abs.Neutrophil (Seg) 1.83 k/uL Normal 1.3-9.1 [facility] Comment on above: Performed By: #### C P, LIPR, TSHX, CDP ####[address] [place] [address] #### T3, T4 ####[address] [address] Basophils/100 WBC Auto (Bld) 0 % Normal 0-2 [facility] Comment on above: Performed By: #### C P, LIPR, TSHX, CDP ####[facility] [place] [address] #### T3, T4 ####[address] [address] Blood morphology Normal Normal [facility] Comment on above: Result Comment: Perf ormed at [facility] [address] [place] [address] Performed By: #### C P, LIPR, TSHX, CDP ####[address] [address] #### T3, T4 ####[address] [address] Eosinophils 0.04 10*3/uL Normal 0.0-0.4 [facility] Comment on above: Performed By: #### C P, LIPR, TSHX, CDP ####[address] [address] #### T3, T4 ####[address] [address] Eosinophils/100 leukocytes 1 % Normal 0-4 [facility] Comment on above: Performed By: #### C P, LIPR, TSHX, CDP ####[address] [address] #### T3, T4 ####[address] [address] Lymphocytes 1.87 10*3/uL Normal 1.0-4.8 [facility] Comment on above: Performed By: #### C P, LIPR, TSHX, CDP ####[facility] [place] [address] #### T3, T4 ####[address] [address] Lymphocytes/100 leukocytes 48 % High 24-44 [facility] Comment on above: Performed By: #### C P, LIPR, TSHX, CDP ####[facility] [place] [address] #### T3, T4 ####[address] [address] Monocytes 0.16 10*3/uL Normal 0.1-1.3 [facility] Comment on above: Performed By: #### C P, LIPR, TSHX, CDP ####[facility] [place] [address] #### T3, T4 ####[address] [address] Monocytes/100 leukocytes 4 % Normal 1-7 [facility] Comment on above: Performed By: #### C P, LIPR, TSHX, CDP ####[facility] [place] [address] #### T3, T4 ####[address] [address] Neutrophil (Seg) 47 % Normal 36-66 [facility] Comment on above: Performed By: #### C P, LIPR, TSHX, CDP ####[address] [address] #### T3, T4 ####[address] [place] [address] Erythrocyte distribution width Auto Ratio (RBC) 13.8 % Normal 11.5-14.9 [facility] Comment on above: Performed By: #### C P, LIPR, TSHX, CDP ####[address] [address] #### T3, T4 ####[address] [address] Erythrocytes (RBC) 4.72 10*6/uL Normal 4.5-5.9 [facility] Comment on above: Performed By: #### C P, LIPR, TSHX, CDP ####[address] [address] #### T3, T4 ####[address] [address] Hematocrit (HCT) 42.2 % Normal 41-53 [facility] Comment on above: Performed By: #### C P, LIPR, TSHX, CDP ####[address] [address] #### T3, T4 ####[address] [address] Hemoglobin mass conc (Bld) 13.9 g/dL Normal 13.5-17.5 [facility] Comment on above: Performed By: #### C P, LIPR, TSHX, CDP ####[address] [address] #### T3, T4 ####[address] [address] MCH 29.6 pg Normal 26-34 [facility] Comment on above: Performed By: #### C P, LIPR, TSHX, CDP ####[address] [address] [place] [address] #### T3, T4 ####[address] [address] MCHC mass conc (RBC) 33.0 g/dL Normal 31-37 [facility] Comment on above: Performed By: #### C P, LIPR, TSHX, CDP ####[facility] [place] [address] #### T3, T4 ####[address] [address] MCV 89.5 fL Normal 80-100 [facility] Comment on above: Performed By: #### C P, LIPR, TSHX, CDP ####[address] [address] #### T3, T4 ####[address] [address] Platelet mean volume (PMV) 7.3 fL Normal 6.0-12.0 [facility] Comment on above: Performed By: #### C P, LIPR, TSHX, CDP ####[address] [address] #### T3, T4 ####[address] [address] Platelets 198 10*3/uL Normal 150-450 [facility] Comment on above: Performed By: #### C P, LIPR, TSHX, CDP ####[address] [address] #### T3, T4 ####[address] [address] WBC (Leukocytes) 3.9 10*3/uL Normal 3.5-11.0 [facility] Comment on above: Performed By: #### C P, LIPR, TSHX, CDP ####[address] [address] #### T3, T4 ####[address] [address] Auto Diff Performed NOT REPORTED Normal [facility] Comment on above: Performed By: #### C P, LIPR, TSHX, CDP ####[address] [address] #### T3, T4 ####[address] [address] Erythrocyte morphology NOT REPORTED Normal [facility] Comment on above: Performed By: #### C P, LIPR, TSHX, CDP ####[address] [address] #### T3, T4 ####[address] [address] Erythrocytes (RBC) NOT REPORTED Normal [facility] Comment on above: Performed By: #### C P, LIPR, TSHX, CDP ####[address] [address] #### T3, T4 ####[address] [address] Granulocytes/100 WBC (Bld) NOT REPORTED Normal 0.00-0.30 [facility] Comment on above: Performed By: #### C P, LIPR, TSHX, CDP ####[address] [address] #### T3, T4 ####[address] [address] Immature granulocytes #/vol (Bld) NOT REPORTED Normal 0 [facility] Comment on above: Performed By: #### C P, LIPR, TSHX, CDP ####[address] [address] #### T3, T4 ####[address] [place] [address] Platelets NOT REPORTED Normal [facility] Comment on above: Performed By: #### C P, LIPR, TSHX, CDP ####[address] [address] #### T3, T4 ####[address] [place] [address] WBC Morphology NOT REPORTED Normal [facility] Comment on above: Performed By: #### C P, LIPR, TSHX, CDP ####[address] [address] #### T3, T4 ####[address] [place] [address] Comp Metabolic Profon 2017 (cont.) Normal [facility] Comment on above: Result Comment: Aver age GFR for 50-59 years old: 93 mL/min/1.73sq mChronic Kidney Disease: <60 mL/min/1.73sq mKidney failure: <15 mL/min/1.73sq meGFR calculated using average adult body mass. Additional eGFR calculator available at:http://[email or web address]/multiple_crcl_2012.htmPerformed at [facility] [address] [place] [address] Performed By: #### C P, LIPR, TSHX, CDP ####[address] [place] [address] #### T3, T4 ####[address] [address] Alanine aminotransferase (ALT) 11 U/L Normal 5-41 [facility] Comment on above: Performed By: #### C P, LIPR, TSHX, CDP ####[address] [address] #### T3, T4 ####[address] [address] Albumin 3.6 g/dL Normal 3.5-5.2 [facility] Comment on above: Performed By: #### C P, LIPR, TSHX, CDP ####[address] [place] [address] #### T3, T4 ####[address] [address] Alkaline Phos 104 U/L Normal 40-129 [facility] Comment on above: Performed By: #### C P, LIPR, TSHX, CDP ####[address] [place] [address] #### T3, T4 ####[address] [address] Anion gap 7 mmol/L Low 9-17 [facility] Comment on above: Performed By: #### C P, LIPR, TSHX, CDP ####[address] [place] [address] #### T3, T4 ####[address] [address] Aspartate aminotransferase (AST) 13 U/L Normal <40 [facility] Comment on above: Performed By: #### C P, LIPR, TSHX, CDP ####[address] [place] [address] #### T3, T4 ####[address] [address] Bilirubin Ql (U) 0.26 mg/dL Low 0.3-1.2 [facility] Comment on above: Performed By: #### C P, LIPR, TSHX, CDP ####[address] [address] #### T3, T4 ####[address] [address] Calcium 8.6 mg/dL Normal 8.6-10.4 [facility] Comment on above: Performed By: #### C P, LIPR, TSHX, CDP ####[address] [address] #### T3, T4 ####[address] [address] Chloride 106 mmol/L Normal 98-107 [facility] Comment on above: Performed By: #### C P, LIPR, TSHX, CDP ####[address] [address] #### T3, T4 ####[address] [address] CO2 29 mmol/L Normal 20-31 [facility] Comment on above: Performed By: #### C P, LIPR, TSHX, CDP ####[address] [address] #### T3, T4 ####[address] [address] Creatinine 1.01 mg/dL Normal 0.70-1.20 [facility] Comment on above: Performed By: #### C P, LIPR, TSHX, CDP ####[facility] [place] [address] #### T3, T4 ####[address] [address] eGFR (non-black) mL/min/{1.73_m2} Normal >60 [facility] Comment on above: Performed By: #### C P, LIPR, TSHX, CDP ####[facility] [place] [address] #### T3, T4 ####[address] [address] Glucose mass conc 100 mg/dL High 70-99 [facility] Comment on above: Performed By: #### C P, LIPR, TSHX, CDP ####[address] [address] #### T3, T4 ####[address] [address] Potassium molar conc 4.1 mmol/L Normal 3.7-5.3 [facility] Comment on above: Performed By: #### C P, LIPR, TSHX, CDP ####[address] [address] #### T3, T4 ####[address] [address] Protein 5.9 g/dL Low 6.4-8.3 [facility] Comment on above: Performed By: #### C P, LIPR, TSHX, CDP ####[address] [address] #### T3, T4 ####[place] [address] [place] [address] Sodium 142 mmol/L Normal 135-144 [facility] Comment on above: Performed By: #### C P, LIPR, TSHX, CDP ####[facility] [place] [address] [place] [address] #### T3, T4 ####[facility] [place] [address] Urea nitrogen 19 mg/dL Normal 6-20 [facility] Comment on above: Performed By: #### C P, LIPR, TSHX, CDP ####[facility] [place] [address] [place] [address] #### T3, T4 ####[facility] [place] [address] Albumin/Globulin Ratio NOT REPORTED Normal 1.0-2.5 [facility] Comment on above: Performed By: #### C P, LIPR, TSHX, CDP ####[address] [place] [address] #### T3, T4 ####[facility] [place] [address] BUN/CRE Ratio NOT REPORTED Normal -20 [facility] Comment on above: Performed By: #### C P, LIPR, TSHX, CDP ####[address] [place] [address] #### T3, T4 ####[facility] [place] [address] Staging: NOT REPORTED Normal [facility] Comment on above: Performed By: #### C P, LIPR, TSHX, CDP ####[facility] [place] [address] [place] [address] #### T3, T4 ####[facility] [place] [address] Lipid Profileon 01-30-2018 Cholesterol 172 mg/dL Normal <200 [facility] Comment on above: Result Comment: Chol esterol Guidelines: <200 Desirable 200-240 Borderline >240 Undesirable Performed By: #### C P, LIPR, TSHX, CDP ####[facility] [place] [address] #### T3, T4 ####[address] [address] Cholesterol to HDL Ratio 3.4 {ratio} Normal <5 [facility] Comment on above: Performed By: #### C P, LIPR, TSHX, CDP ####[address] [address] #### T3, T4 ####[address] [address] HDL Cholesterol 50 mg/dL Normal >40 [facility] Comment on above: Result Comment: HDL Guidelines: <40 Undesirable 40-59 Borderline >59 Desirable Performed By: #### C P, LIPR, TSHX, CDP ####[place]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
[2025-07-31 14:10] LABS: Anion Gap 13.4; Calcium 8.8 mg/dL (8.5-10.1); Carbon Dioxide 28.1 mmol/L (21.0-32.0); Chloride 93 mmol/L (98-107); Estimated GFR (African America 21 (>=60 mL/min/1.73m^2); Estimated GFR (Non-African Ame 17 (>=60 mL/min/1.73m^2); Glucose 142 mg/dL (74-106); Potassium 4.5 mmol/L (3.5-5.1); Sodium 130 mmol/L (136-145)
[2025-07-31 14:12] LABS: Glucose Urine UA NEGATIVE (NEGATIVE)
[2025-07-31 14:19] LABS: Blood Urea Nitrogen 86.0 mg/dL (7.0-18.0)
--- NOTE | 2025-07-31 14:20 | CT_ITS ---
The [address] [address] Patient Name: AARON OLIVAREZ MRN: [id number] date: 1960 Sex: M Assigned Patient Location: ER Current Patient Location: .[facility] Accession/Order Number: [id number] Exam Date: 07/31/2025 14:10 Report Date: 07/31/2025 14:39 At the request of: ELEANOR BOYD MD Procedure: CT head/brain wo con CT BRAIN WITHOUT CONTRAST: CLINICAL HISTORY: seizure COMPARISON: 07/15/2025 CT angiogram TECHNIQUE: Contiguous axial unenhanced images were obtained through the brain. This CT exam was performed using one or more following dose reduction techniques: Automated exposure control, adjustment of the mA and/or kV according to patient size, or use of iterative reconstruction technique. FINDINGS: There is no evidence of midline shift, intra or extra-axial fluid collection, hemorrhage or CT evidence of acute large vascular distribution stroke. . Questionable band of loss of floyd-white differentiation right inferolateral frontal lobe, image 40 axial images. However on the sagittal images, notably sagittal image 40, question this could represent artifact. Otherwise, Central involutional change and moderate to severe small vessel ischemic disease. Left frontal gliosis and encephalomalacia. Visualized intraorbital contents appear unremarkable. Visualized paranasal sinuses are clear. The surrounding soft tissues are normal. CT/CT head/brain wo con IMPRESSION: No acute bleed or midline shift. Moderate severe chronic white matter changes. Questionable loss of floyd-white differentiation right inferolateral frontal lobe noted on the axial images possibly artifact. Please correlate with exam findings. Impression dictated by: Regino Mckinley M.D. 07/31/2025 2:39 PM Dictation Location: [place] [address] Electronically authenticated by: [id number] Y Date: 07/31/2025 14:39
[2025-07-31 14:21] LABS: Lactate/Lactic Acid 4.3 mmol/L (0.4-2.0)
[2025-07-31 14:23] LABS: Cannabinoid Screen Urine NEGATIVE (NEGATIVE); Methamphetamines Screen Urine POSITIVE (NEGATIVE); Tricyclic Antidepressant Urine NEGATIVE (NEGATIVE)
--- NOTE | 2025-07-31 14:25 | XR_ITS ---
[place] [id number] Patient Name: AARON OLIVAREZ MRN: [id number] date: 1960 Sex: M Assigned Patient Location: ER Current Patient Location: ED.MAIN Accession/Order Number: [id number] Exam Date: 07/31/2025 14:20 Report Date: 07/31/2025 14:34 At the request of: ELEANOR BOYD MD Procedure: XR chest 1V Single view chest INDICATION: Seizure COMPARISON: 07/15/2025 FINDINGS: Mildly enlarged cardiomediastinal silhouette. Minor central vascular congestion. New right basilar airspace opacity. No effusion or pneumothorax. XR/XR chest 1V IMPRESSION: Bibasilar opacity given history, this could represent aspiration. Impression dictated by: Regino Mckinley M.D. 07/31/2025 2:34 PM Dictation Location: [place] [address] Electronically authenticated by: [id number] Y Date: 07/31/2025 14:34
[2025-07-31] MEDS: ACETAMINOPHEN 650 MG RECTAL SUPPOSITORY PR (14:30)
[2025-07-31 14:39] LABS: Band Neutrophils Absolute 0.1 10^3/uL (0.0-0.3); Basophils Abs Manual 0.00 10^3/uL (0.00-0.10); Basophils Percent Manual 0.0 % (0.2-2.0); Eosinophils Absolute Manual 0.00 10^3/uL (0.00-0.70); Eosinophils Percent Manual 0.0 % (0.9-7.0); Lymphocytes Absolute Manual 0.56 10^3/uL (1.20-3.80); Lymphocytes Percent Manual 8.0 % (20.5-60.0); Monocytes Absolute Manual 0.63 10^3/uL (0.30-0.80); Monocytes Percent Manual 9.0 % (1.7-12.0); Segmented Neut Absolute Manual 5.74 10^3/uL (1.4-6.5); Segmented Neutrophils % Manual 82.0 (43.0-75.0)
[2025-07-31 14:43] LABS: Cast Seen? SEEN #/LPF (NONE SEEN); Crystals Seen? None Seen #/HPF (None Seen)
[2025-07-31 14:45] LABS: Urine Culture Indicated YES-FRMC
[2025-07-31] MEDS: 0.9 % SODIUM CHLORIDE 1,000 ML 1000 ML IV ×2 (15:16→16:12)
[2025-07-31 15:23] LABS: Allen Test POSITIVE (POSITIVE); BIPAP Pressure 18/8; HCO3 ABG 29.7 mmol/L (22.0-26.0); O2 Mode BIPAP; Oxygen Saturation ABG 97.2 %; PO2 ABG 108.0 mmHg (80.0-100.0); Puncture Site RR; Rate 16
[2025-07-31 15:25] LABS: ABG PCO2 81.5 mmHg (35.0-45.0)
[2025-07-31 15:36] LABS: Creatine Kinase 131 U/L (39-308)
[2025-07-31 16:12] LABS: INR 1.00; Prothrombin Time 10.6 sec (9.0-11.6)
[2025-07-31] MEDS: PIPERACILLIN SODIUM/TAZOBACTAM 3.375 GM in 0.9 % SODIUM CHLORIDE 50 ML IV (16:12)
[2025-07-31 16:16] LABS: Partial Thromboplastin Time 28.2 sec (22.3-36.2)
[2025-07-31] MEDS: ETOMIDATE 20 MG/10 ML VIAL IVP (16:24)
[2025-07-31] MEDS: DIAZEPAM 10 MG/2 ML SYRINGE 5 MG IV (16:30)
[2025-07-31] MEDS: ETOMIDATE 20 MG/10 ML VIAL 10 MG IVP (16:32)
--- NOTE | 2025-07-31 16:32 | XR_ITS ---
The [address] [address] Patient Name: AARON OLIVAREZ MRN: [id number] date: 1960 Sex: M Assigned Patient Location: ED.MAIN Current Patient Location: ED.MAIN Accession/Order Number: [id number] Exam Date: 07/31/2025 16:25 Report Date: 07/31/2025 16:39 At the request of: ELEANOR BOYD MD Procedure: XR chest 1V XR chest 1V 07/31/2025 4:33 PM SIGNS AND SYMPTOMS: ^post intubation ^Y PROTOCOL: Frontal radiograph the chest COMPARISON: 07/31/2025 FINDINGS: The trachea is midline. An ET tube has been placed and is in satisfactory position. The heart and mediastinal structures are within normal limits. Hazy airspace opacities are redemonstrated bilaterally. The bony thorax is intact. XR/XR chest 1V IMPRESSION: Satisfactory placement of an ET tube. Similar hazy airspace opacities are noted bilaterally. Impression dictated by: Dung Chakraborty M.D. 07/31/2025 4:39 PM Dictation Location: [place] [address] Electronically authenticated by: [id number] Y Date: 07/31/2025 16:39
[2025-07-31] MEDS: HEPARIN SODIUM (PORCINE) 5,000 UNIT/ML VIAL 3800 UNIT IV (16:45)
[2025-07-31] MEDS: HEPARIN SODIUM,PORCINE/D5W 25,000 UNIT/500 ML IV.SOLN 15 UNIT IV (16:45)
[2025-07-31 16:49] LABS: Lactate/Lactic Acid 2.7 mmol/L (0.4-2.0)
[2025-07-31] MEDS: ASPIRIN 300 MG SUPP.RECT PR (17:19)
[2025-07-31] MEDS: PROPOFOL 1,000 MG/100 ML VIAL 1.905 MG IV (17:38)
[2025-07-31 17:39] LABS: SARS-CoV-2 Ag NEGATIVE (NEGATIVE)
--- NOTE | 2025-07-31 18:23 | PC.NURSE ---
[facility] arrives at this time for transport.
== END 2025-07-31 18:57 | disposition short-term general hospital (02) ==
PROVIDERS: Emergency Provider Emergency Medicine
DX: J96.90 Respiratory failure, unspecified, unspecified whether with hypoxia or hypercapnia (principal); N17.9 Acute kidney failure, unspecified; I21.4 Non-ST elevation (NSTEMI) myocardial infarction; R56.9 Unspecified convulsions; F19.10 Other psychoactive substance abuse, uncomplicated; R82.998 Other abnormal findings in urine
CPT/HCPCS: 31500; 36415; 36600; 51702; 70450; 71045; 80048; 80307; 80320; 81001; 82550; 82805; 83605; 83874; 84484; 85007; 85027; 85610; 85730; 87040; 87086; 87811; 93005; 94002; 94660; 94799; 96365; 96366; 96367; 96368; 96375; 96376; 99285; J1644; J1953; J2543; J2704; J3360

== ENCOUNTER 2025-09-09 16:24 | Observation (INO) | payer MEDICARE, SELFPAY ==
[2025-09-09] VITALS (39 sets, daily range): BP systolic 139–187; BP diastolic 92–110; PULSE 59–70; O2SAT 84–100; BMI 19.0
--- NOTE | 2025-09-09 16:58 | PC.NURSE ---
PT IS NON-COMPLIANT WITH MEDICAL TREATMENT. PT PRESENTS WITH DROWSINESS AND URIN INCONTINENCE. KNOWN HX POLYSUBSTANCE ABUSE AND SEIZURES. EMS CALLED BY A FRIEND AT PT RESIDENCE BUT ONLY KNEW PT FIRST NAME AND THAT PT HAS HX SEIZURES.
[2025-09-09 17:04] LABS: Hematocrit 41.7 % (42.0-54.0); Hemoglobin 13.6 g/dL (14.0-18.0); Immature Granulocytes Abs Auto 0.02 10^3/uL (0.00-0.03); Immature Granulocytes Pct Auto 0.2 % (0.0-0.5); Lymphocytes Absolute Auto 0.7 10^3/uL (1.2-3.8); Mean Corpuscular HGB Conc 32.6 g/dL (29.9-35.2); Mean Corpuscular Hemoglobin 30.6 pg (25.9-34.0); Mean Corpuscular Volume 93.7 fL (80.0-94.0); Platelet Count 269 10^3/uL (150-450); Red Blood Count 4.45 10^6/uL (4.70-6.10); White Blood Count 9.7 10^3/uL (4.0-11.0)
--- OUTSIDE RECORDS SUMMARY | 2025-09-09 17:12 | XMS_ITS | Clinical Summary ---
Author Organization [facility] Address [address] [place] [address] Care Team Providers Care Theatrical Rigger Name Role Phone Thanh Kenney DO Unavailable [phone] Social History Tobacco UseTypesPacks/DayYears UsedDateSmoking Tobacco: Never AssessedSex and Gender InformationValueDate RecordedSex Assigned at BirthNot on fileLegal Sex Male11/27/2024 2:37 PM ESTGender IdentityNot on fileSexual OrientationNot on file Plan of Treatment Not on file Insurance * Guarantor: Marbin Trujillo EAccount TypeRelation to PatientDate of BirthPhone Billing AddressPersonal/PzbjcpPtwt1960 [facility] [address] Care Teams Team MemberRelationshipSpecialtyStart DateEnd Date Thanh Kenney DO [address] [place] [address] Referring PhysicianNeurology1
--- OUTSIDE RECORDS SUMMARY | 2025-09-09 17:13 | XMS_ITS | Clinical Summary ---
Author Organization [facility] Address [address] [place] [address] Care Team Providers Care Immigration Law Specialist Name Role Phone Phys, Self-Refer Or No Pcp/Referring Primary Car e Provider Unavailable Allergies No known active allergies Social History Tobacco UseTypesPacks/DayYears UsedDateSmoking Tobacco: Never AssessedSex and Gender InformationValueDate RecordedSex Assigned at BirthNot on fileLegal Sex Male06/20/2020 4:19 PM EDTGender IdentityNot on fileSexual OrientationNot on file Last Filed Vital Signs Vital SignReadingTime TakenCommentsBlood Obehglca499/65012/25/2021 6:20 PM EST Nahal9159/12/2022 6:20 PM RQUFkpuqyxoofv91.1 ??C (98.7 ??F)12/25/2021 6:20 PM ESTRespiratory Sgdb707612/25/2021 6:20 PM ESTOxygen Kzjspyrcca98%12/25/2021 6:20 PM ESTInhaled Oxygen Concentration--Ykcmfn59.7 kg (200 lb)12/25/2021 5:17 PM EST Hyhdtd588.4 cm (6' 1 )12/25/2021 5:17 PM ESTBody Mass Index26.39012/25/2021 5:17 PM EST Plan of Treatment Health MaintenanceDue DateLast DoneCommentsCologuard (average risk only) 1960 6985Avuopcznlcd1958Colorectal Cancer Cdafzvjlf1958FIT (average risk only)1960Hepatitis C Lmcqufpzv1958DTaP,Tdap,and Td Vaccines (1 - Tdap)1977Pneumococcal Vaccines 50years + (1 of 1 - PCV)2008Zoster Recombinant Vaccines (1 of 2)2008COVID-19 Vaccine ( - 2024-26 season) 2025Influenza Vaccine (#1)2025Respiratory Syncytial Virus (RSV) or ages 60 years and older (1 - 1-dose 75+ series)2033 Respiratory Syncytial Virus (RSV) ages 0 thru 19 monthsAged OutNo longer eligible based on patient's age to complete this topic Insurance Care Teams Team MemberRelationshipSpecialtyStart DateEnd Date Phys, Self-Refer Or No Pcp/Referring PCP - General06/20/20
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
--- OUTSIDE RECORDS SUMMARY | 2025-09-09 17:13 | XMS_ITS | Clinical Summary ---
Author Organization [facility] Address [address] [place] [address] Phone Care Team Providers Care Converter Operator Name Role Phone Sulaiman Feldman DO Primary Care Provider [phone] Encounters DateTypeDepartmentCare WzlkUxnwzihjggu90/20/2025Scanned Document [facility] [address] [place] [id number] Scanning, Generic Provider from Last 3 Months Social History Tobacco UseTypesPacks/DayYears UsedDateSmoking Tobacco: Never AssessedSex and Gender InformationValueDate RecordedSex Assigned at BirthNot on fileLegal Sex Male05/06/2024 10:09 AM EDTGender IdentityNot on fileSexual OrientationNot on file Plan of Treatment Health MaintenanceDue DateLast DoneCommentsCT Xkvsaxtggdzt1958Colonoscopy 1958Colorectal Cancer Ljtlhljbs1958FIT-DNA (Cologuard)1958FIT 1958Lipid Panel1958Medicare Annual Wellness Visit (AWV)1958 Zuuwukwlbfntz1958MMR Vaccines (1 of 1 - Standard series)1959Diabetes Exutvghka97/22/1976Hepatitis C Nusiqqbvq16/22/1976Pneumococcal Vaccine (1 of 2 - PCV)1977DTaP/Tdap/Td Vaccines (1 - Tdap)1980PSA Prostate Cancer Djzkqizao70/22/2008Zoster Vaccines (1 of 2)2008RSV High Risk: (Elderly (60+) or Population) (1 - Risk 60-74 years 1-dose series)2018 Influenza Vaccine (#1)2025OVID-19 Vaccine (2024- season)2025 HIB VaccinesAged OutNo longer eligible based on patient's age to complete this topicHPV VaccinesAged OutNo longer eligible based on patient's age to complete this topicHepatitis A VaccinesAged OutNo longer eligible based on patient's age to complete this topicHepatitis B VaccinesAged OutNo longer eligible based on patient's age to complete this topicIPV VaccinesAged OutNo longer eligible based on patient's age to complete this topicMeningococcal VaccineAged OutNo longer eligible based on patient's age to complete this topicRotavirus VaccinesAged Out No longer eligible based on patient's age to complete this topic Procedures Procedure NamePriorityDate/TimeAssociated DiagnosisCommentsECHOCARDIOGRAM 08/02/2025 from Last 3 Months Results * Echocardiogram (08/02/2025) Narrative 08/02/2025 Ordered by an unspecified provider. Authorizing ProviderResult TypeResult StatusGeneric Provider ScanningCV ECHO PROCEDURESFinal Result from Last 3 Months Insurance Care Teams Team MemberRelationshipSpecialtyStart DateEnd Date Sulaiman Feldman DO [id number] [phone] PCP - General11/29/24
--- OUTSIDE RECORDS SUMMARY | 2025-09-09 17:15 | XMS_ITS | CCD ---
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 BMP ####[address] [address] USASodium [Moles/Vol]138 mmol/LNormal 136-145The [facility] Physician GroupComment on above:Order Comment: per rn idania draw @ 0800. pt just went to sleep. arr 0350. per rn idania just come at 0800. pt fell back to sleep. arr 0724.Performed By: #### MG, BMP ####[address] [address] USAUrea nitrogen [Mass/Vol]13 mg/dLNormal7-25The [facility] Physician GroupComment on above:Order Comment: per rn idania draw @ 0800. pt just went to sleep. arr 0350. per rn idania just come at 0800. pt fell back to sleep. arr 0724.Performed By: #### MG, BMP ####[address] [place] [address] USAECG 12 lead ECGon 08-27-0969LZO 12 lead ECGNormTGH Spring [facility] Physician GroupMagnesiumon 46-61-9327Yygubbcon [Mass/Vol]2.1 mg/dLNormal1.9-2.7The [facility] Physician GroupComment on above:Order Comment: per rn idania draw @ 0800. pt just went to sleep. arr 0350. per rn idania just come at 0800. pt fell back to sleep. arr 0724. Result Comment: PERFORMED BY:[address] [address] [address] [place], [place] [phone] MEDICAL EÍLAS GERMAN M.D.Performed By: #### MG, BMP ####[address] [place] [address] USAThyroid Stimulating Hormoneon 38-74-5576WTG Qn59.87 m[IU]/LHigh0.45-5.33The [facility] Physician GroupComment on above:Order Comment: Comment addResult Comment: PERFORMED BY:[address] [address] [address] [place], [place] [phone] MEDICAL ELÍAS GERMAN M.D.Performed By: #### TSH3 ####[address] [address] USAECG 12 lead ECGon [id number] 12 lead ECG NormalThe [facility] Physician GroupECG 12 lead ECGNormTGH [facility] Physician GroupECG 12 lead ECGNormTGH [facility] Physician [facility] HospitalBasic Metabolic Panelon 75-04-3938Oxoqu gap [Moles/Vol]6.6 mmol/LNormal6.0-15.0The [facility] Physician GroupComment on above:Performed By: #### BMP, CBC ####[address] [place] [address] USACalcium [Mass/Vol]8.4 mg/dLLow 8.6-10.3The [facility] Physician GroupComment on above:Performed By: #### BMP, CBC ####[address] [place] [address] [place] Chloride [Moles/Vol]106 mmol/EXnknuu71-866Lnx [facility] Physician GroupComment on above:Performed By: #### BMP, CBC ####[address] [address] USACO2 [Moles/Vol]26.2 mmol/VKhoxel63.0-31.0The [facility] Physician GroupComment on above:Performed By: #### BMP, CBC ####[address] [address] [place] Creatinine [Mass/Vol]1.09 mg/dLNormal0.70-1.30The [facility] Physician Group Comment on above:Performed By: #### BMP, CBC ####[address] [address] USACreatinine Clr Calc Oyhdvlwp05.76 NormalThe [facility] Physician GroupComment on above:Result Comment: PERFORMED BY:[address] [place], [place] [phone] MEDICAL DIRECTORCELESTE GERMAN M.D.Performed By: #### BMP, CBC ####[address] [address] [place] GFR/1.73 sq M.predicted MDRD (S/P/Bld) [Vol rate/Area]mL/min/{1.73_m2}NormalThe [facility] Physician GroupComment on above:Performed By: #### BMP, CBC ####[address] [address] USAGlucose [Mass/Vol]101 mg/mUNibn24-723Weu [facility] Physician GroupComment on above: Result Comment: Random Glucose Reference Range is dependent on time and content of last meal. Glucose of more than 200 mg/dL in a nonstressed, ambulatory subject supports the diagnosis of Diabetes Mellitus. ADA recommended reference rangePerformed By: #### BMP, CBC ####[place] [address] USAPotassium [Moles/Vol]3.8 mmol/LNormal3.5-5.1The [facility] Physician GroupComment on above:Performed By: #### BMP, CBC ####[place] [address] USASodium [Moles/Vol]135 mmol/MPve632-979Uyc [facility] Physician GroupComment on above: Performed By: #### BMP, CBC ####[place] [address] USAUrea nitrogen [Mass/Vol]20 mg/dLNormal7-25The [facility] Physician GroupComment on above:Performed By: #### BMP, CBC ####[address] Complete Blood Count Auto Diffon 51-14-0830Bpbhkztlq (Bld) [#/Vol]0.0 10*3/uL Normal0.0-0.2The [facility] Physician [facility] Regional HospitalComment on above:Result Comment: PERFORMED BY:[address] [place], [place] [phone] MEDICAL DIRECTORCELESTE GERMAN M.D.Performed By: #### BMP, CBC ####[place] [address] USABasophils/100 WBC (Bld)0.8 %Normal.The [facility] Physician GroupComment on above:Performed By: #### BMP, CBC ####[place] [address] USAEosinophils (Bld) [#/Vol]0.1 10*3/uLNormal 0.0-0.45The [facility] Physician GroupComment on above:Performed By: #### BMP, CBC ####[place] [address] [place] Eosinophils/100 WBC (Bld)1.0 %Normal.The [facility] Physician GroupComment on above:Performed By: #### BMP, CBC ####[place] [address] USAErythrocyte distribution width (RBC) [Ratio]13.7 % Kqekrx36.0-14.8The [facility] Physician GroupComment on above:Performed By: #### BMP, CBC ####[place] [address] USAHematocrit (Bld) [Volume fraction]34.1 %Low38.8-50.0The [facility] Physician GroupComment on above:Performed By: #### BMP, CBC ####[place] [address] USAHemoglobin (Bld) [Mass/Vol]11.6 g/dL Low13.0-17.0The [facility] Physician GroupComment on above:Performed By: #### BMP, CBC ####[place] [address] USALymphocytes (Bld) [#/Vol]1.1 10*3/uLNormal1.00-4.8The [facility] Physician GroupComment on above:Performed By: #### BMP, CBC ####[place] [address] USALymphocytes/100 WBC (Bld)18.8 %Normal .The [facility] Physician GroupComment on above:Performed By: #### BMP, CBC ####[id number] USAMCH (RBC) [Entitic mass]30.5 mrVebjpu20.5-35.2The [facility] Physician GroupComment on above:Performed By: #### BMP, CBC ####[id number] USAMCV (RBC) [Entitic vol]89.4 mKCafolk73.5-101 The [facility] Physician GroupComment on above:Performed By: #### BMP, CBC ####[address] [address] USAMean Corpuscular HGB Conc34.2 g/qPIknluo25.5-35.6The [facility] Physician GroupComment on above:Performed By: #### BMP, CBC ####[address] [address] USAMonocytes (Bld) [#/Vol]0.4 10*3/uLNormal 0.0-0.8The [facility] Physician GroupComment on above:Performed By: #### BMP, CBC ####[id number] [place] Monocytes/100 WBC (Bld)7.4 %Normal.The [facility] Physician GroupComment on above:Performed By: #### BMP, CBC ####[place] [address] USANeutrophils (Bld) [#/Vol]4.3 10*3/uLNormal1.8-7.7The [facility] Physician GroupComment on above:Performed By: #### BMP, CBC ####[id number] [place] Neutrophils/100 WBC (Bld)72.0 %Normal.The [facility] Physician GroupComment on above:Performed By: #### BMP, CBC ####[id number] USANRBC%0.1 /100{WBC}Normal0-0.5The [facility] Physician GroupComment on above:Performed By: #### BMP, CBC ####[address] [address] USAPlatelet mean volume (Bld) [Entitic vol]8.0 fLNormal6.6-10.1The [facility] Physician GroupComment on above: Performed By: #### BMP, CBC ####[address] [address] USAPlatelets (Bld) [#/Vol]316 10*3/hDGpyyxg882-863Atc [facility] Physician GroupComment on above:Performed By: #### BMP, CBC ####[id number] USARBC (Bld) [#/Vol]3.81 10*6/uLLow3.90-5.60The [facility] Physician GroupComment on above:Performed By: #### BMP, CBC ####[id number] USAWBC (Bld) [#/Vol]5.9 10*3/uLNormal4.1-10.5The [facility] Physician GroupComment on above:Performed By: #### BMP, CBC ####[id number] USAWhite Blood Count5.9 [CFU]/mLNormal4.1-10.5The [facility] Physician GroupComment on above:Performed By: #### BMP, CBC ####[place] [address] USABasic Metabolic Panelon 59-75-5924Muvcg gap [Moles/Vol]9.1 mmol/LNormal6.0-15.0The [facility] Physician GroupComment on above:Performed By: #### CBC, BMP ####[place] [address] USACalcium [Mass/Vol]8.5 mg/dLLow8.6-10.3The [facility] Physician GroupComment on above:Performed By: #### CBC, BMP ####[place] [address] USAChloride [Moles/Vol] 103 mmol/YAcmxzo39-814Rme [facility] Physician GroupComment on above:Performed By: #### CBC, BMP ####[place] [address] USACO2 [Moles/Vol]27.2 mmol/MNhpvun89.0-31.0The [facility] Physician GroupComment on above:Performed By: #### CBC, BMP ####[place] [address] USACreatinine [Mass/Vol]0.92 mg/dLNormal 0.70-1.30The [facility] Physician GroupComment on above:Performed By: #### CBC, BMP ####[address] [address] [place] Creatinine Clr Calc Cszbaopu67.65NormalThe [facility] Physician GroupComment on above:Result Comment: PERFORMED BY:[address] [place], [place] [phone] MEDICAL ELÍAS GERMAN M.D.Performed By: #### CBC, BMP ####[address] [address] USAGFR/1.73 sq M.predicted MDRD (S/P/Bld) [Vol rate/Area]mL/min/{1.73_m2}NormalThe [facility] Physician GroupComment on above: Performed By: #### CBC, BMP ####[id number] USAGlucose [Mass/Vol]80 mg/pHOoiixp10-194Zdv [facility] Physician [facility] HospitalComment on above:Result Comment: Random Glucose Reference Range is dependent on time and content of last meal. Glucose of more than 200 mg/dL in a nonstressed, ambulatory subject supports the diagnosis of Diabetes Mellitus. ADA recommended reference rangePerformed By: #### CBC, BMP ####[address] [address] USAPotassium [Moles/Vol] 3.3 mmol/LLow3.5-5.1The [facility] Physician [facility] HospitalComment on above:Performed By: #### CBC, BMP ####[address] [address] USASodium [Moles/Vol]136 mmol/IElwlcc764-275Zzu [facility]ician Group Comment on above:Performed By: #### CBC, BMP ####[address] [address] USAUrea nitrogen [Mass/Vol]17 mg/dLNormal 7-25The [facility] Physician GroupComment on above:Performed By: #### CBC, BMP ####[address] [address] [facility] Complete Blood Count Auto Diffon 61-13-1705Eyqosxiim (Bld) [#/Vol]0.1 10*3/uL Normal0.0-0.2The [facility] Physician GroupComment on above:Result Comment: PERFORMED BY:[address] [place], [place] [phone] MEDICAL DIRECTORCELESTE GERMAN M.D.Performed By: #### CBC, BMP ####[address] [address] USABasophils/100 WBC (Bld)0.8 %Normal.The [facility] Physician GroupComment on above:Performed By: #### CBC, BMP ####[address] [address] USAEosinophils (Bld) [#/Vol]0.0 10*3/uLNormal 0.0-0.45The [facility] Physician GroupComment on above:Performed By: #### CBC, BMP ####[address] [address] [place] Eosinophils/100 WBC (Bld)0.4 %Normal.The [facility] Physician GroupComment on above:Performed By: #### CBC, BMP ####[address] [address] USAErythrocyte distribution width (RBC) [Ratio]13.7 % Bwttlu90.0-14.8The [facility] Physician GroupComment on above:Performed By: #### CBC, BMP ####[address] [address] USAHematocrit (Bld) [Volume fraction]37.4 %Low38.8-50.0The [facility] Physician GroupComment on above:Performed By: #### CBC, BMP ####[address] [address] USAHemoglobin (Bld) [Mass/Vol]12.6 g/dL Low13.0-17.0The [facility] Physician GroupComment on above:Performed By: #### CBC, BMP ####[place] [address] USALymphocytes (Bld) [#/Vol]1.0 10*3/uLNormal1.00-4.8The [facility] Physician GroupComment on above:Performed By: #### CBC, BMP ####[place] [address] USALymphocytes/100 WBC (Bld)11.3 %Normal .The [facility] Physician GroupComment on above:Performed By: #### CBC, BMP ####[address] (RBC) [Entitic mass]30.2 evFxwliu26.5-35.2The [facility] Physician GroupComment on above:Performed By: #### CBC, BMP ####[address] (RBC) [Entitic vol]89.8 iIMzlqqx02.5-101 The [facility] Physician GroupComment on above:Performed By: #### CBC, BMP ####[place] [address] USAMean Corpuscular HGB Conc33.6 g/bHVlsevq24.5-35.6The [facility] Physician GroupComment on above:Performed By: #### CBC, BMP ####[place] [address] USAMonocytes (Bld) [#/Vol]0.7 10*3/uLNormal 0.0-0.8The [facility] Physician GroupComment on above:Performed By: #### CBC, BMP ####[place] [address] [place] Monocytes/100 WBC (Bld)7.8 %Normal.The [facility] Physician GroupComment on above:Performed By: #### CBC, BMP ####[place] [address] USANeutrophils (Bld) [#/Vol]6.9 10*3/uLNormal1.8-7.7The [facility] Physician GroupComment on above:Performed By: #### CBC, BMP ####[place] [address] [place] Neutrophils/100 WBC (Bld)79.7 %Normal.The [facility] Physician GroupComment on above:Performed By: #### CBC, BMP ####[place] [address] USANRBC%0.0 /100{WBC}Normal0-0.5The [facility] Physician GroupComment on above:Performed By: #### CBC, BMP ####[place] [address] USAPlatelet mean volume (Bld) [Entitic vol]8.1 fLNormal6.6-10.1The [facility] Physician GroupComment on above: Performed By: #### CBC, BMP ####[place] [address] USAPlatelets (Bld) [#/Vol]340 10*3/hSAxrktm547-504Yhp [facility] Physician GroupComment on above:Performed By: #### CBC, BMP ####[place] [address] USARBC (Bld) [#/Vol]4.16 10*6/uLNormal3.90-5.60The [facility] Physician GroupComment on above:Performed By: #### CBC, BMP ####[place] [address] USAWBC (Bld) [#/Vol]8.7 10*3/uLNormal4.1-10.5The [facility] Physician GroupComment on above:Performed By: #### CBC, BMP ####[place] [address] USAWhite Blood Count8.7 [CFU]/mLNormal4.1-10.5The [facility] Physician GroupComment on above:Performed By: #### CBC, BMP ####[address] [address] USABasic Metabolic Panelon 34-00-1393Eilvy gap [Moles/Vol]9.5 mmol/LNormal6.0-15.0The [facility] Physician GroupComment on above:Performed By: #### BMP ####[address] [address] USACalcium [Mass/Vol]8.1 mg/dLLow8.6-10.3The [facility] Physician GroupComment on above:Performed By: #### BMP ####[address] [address] USAChloride [Moles/Vol]105 mmol/L Tvsdfu71-155Ojs [facility] Physician GroupComment on above:Performed By: #### BMP ####[address] [address] USACO2 [Moles/Vol]22.6 mmol/MMhqgpo26.0-31.0The [facility] Physician GroupComment on above:Performed By: #### BMP ####[address] [address] USACreatinine [Mass/Vol]0.88 mg/dLNormal0.70-1.30The [facility] Physician GroupComment on above:Performed By: #### BMP ####[address] [address] USACreatinine Clr Calc Djbckakr59.41NormalThe [facility] Physician GroupComment on above:Result Comment: PERFORMED BY:[address] [place], [place] [phone] MEDICAL ELÍAS GERMAN M.D.Performed By: #### BMP ####[address] [address] USAGFR/1.73 sq M.predicted MDRD (S/P/Bld) [Vol rate/Area]mL/min/{1.73_m2}Normal The [facility] Physician GroupComment on above:Performed By: #### BMP ####[address] [place] [address] USAGlucose [Mass/Vol]83 mg/iWYgrdoh68-938Fnc [facility] Physician GroupComment on above: Result Comment: Random Glucose Reference Range is dependent on time and content of last meal. Glucose of more than 200 mg/dL in a nonstressed, ambulatory subject supports the diagnosis of Diabetes Mellitus. ADA recommended reference rangePerformed By: #### BMP ####[place] [address] USAPotassium [Moles/Vol]4.1 mmol/LNormal3.5-5.1The [facility] Physician GroupComment on above:Result Comment: Hemolysis is present at a level that could interfere with the result. Contact lab if redraw is requiredPerformed By: #### BMP ####[place] [address] USASodium [Moles/Vol]133 mmol/JOgl867-067Pgh [facility] Physician GroupComment on above:Performed By: #### BMP ####[id number] USAUrea nitrogen [Mass/Vol]25 mg/dLNormal7-25The [facility] Physician GroupComment on above:Performed By: #### BMP ####[id number] [facility] Complete Blood Count Auto Diffon [id number] (Bld) [#/Vol]0.0 10*3/uL Normal0.0-0.2The [facility] Physician GroupComment on above:Result Comment: PERFORMED BY:[address] [place], [place] [phone] MEDICAL DIRECTORCELESTE GERMAN M.D.Performed By: #### CBC ####[id number] USABasophils/100 WBC (Bld)0.7 %Normal.The [facility] Physician GroupComment on above:Performed By: #### CBC ####[id number] USAEosinophils (Bld) [#/Vol]0.0 10*3/uLNormal0.0-0.45 The [facility] Physician GroupComment on above:Performed By: #### CBC ####[address] Eosinophils/100 WBC (Bld)0.6 %Normal.The [facility] Physician GroupComment on above:Performed By: #### CBC ####[address] StreetErythrocyte distribution width (RBC) [Ratio]14.2 % Iwzonv72.0-14.8The [facility] Physician GroupComment on above:Performed By: #### CBC ####[address] Hematocrit (Bld) [Volume fraction]36.4 %Low38.8-50.0The [facility] Physician GroupComment on above:Performed By: #### CBC ####[place] [address] USAHemoglobin (Bld) [Mass/Vol]12.1 g/dL Low13.0-17.0The [facility] Physician GroupComment on above:Performed By: #### CBC ####[address] Lymphocytes (Bld) [#/Vol]0.8 10*3/uLLow1.00-4.8The [facility]ician Group Comment on above:Performed By: #### CBC ####[place] [address] USALymphocytes/100 WBC (Bld)11.7 %Normal.The [facility] Physician GroupComment on above:Performed By: #### CBC ####[place] [address] USAMCH (RBC) [Entitic mass]30.3 nkVzaquf99.5-35.2The [facility] Physician GroupComment on above: Performed By: #### CBC ####[place] [address] USAMCV (RBC) [Entitic vol]91.2 pHIojilx78.5-101The [facility] Physician GroupComment on above:Performed By: #### CBC ####[place] [address] USAMean Corpuscular HGB Conc33.2 g/hRAcagnr23.5-35.6The [facility] Physician GroupComment on above: Performed By: #### CBC ####[place] [address] USAMonocytes (Bld) [#/Vol]0.5 10*3/uLNormal0.0-0.8The [facility] Physician GroupComment on above:Performed By: #### CBC ####[place] [address] USAMonocytes/100 WBC (Bld)7.0 %Normal.The [facility] Physician GroupComment on above:Performed By: #### CBC ####[place] [address] USANeutrophils (Bld) [#/Vol]5.2 10*3/uLNormal1.8-7.7The [facility] Physician GroupComment on above:Performed By: #### CBC ####[place] [address] USANeutrophils/100 WBC (Bld)80.0 %Normal. The [facility] Physician GroupComment on above:Performed By: #### CBC ####[place] [address] USANRBC% 0.0 /100{WBC}Normal0-0.5The [facility] Physician GroupComment on above:Performed By: #### CBC ####[place] [address] USAPlatelet mean volume (Bld) [Entitic vol]8.0 fLNormal6.6-10.1The [facility] Physician GroupComment on above:Performed By: #### CBC ####[place] [address] USAPlatelets (Bld) [#/Vol]257 10*3/tAXzowbt356-551Mog [facility] Physician GroupComment on above: Performed By: #### CBC ####[address] [address] USARBC (Bld) [#/Vol]3.98 10*6/uLNormal3.90-5.60The [facility] Physician GroupComment on above:Performed By: #### CBC ####[place] [address] USAWBC (Bld) [#/Vol]6.5 10*3/uLNormal4.1-10.5The [facility] Physician GroupComment on above:Performed By: #### CBC ####[id number] USAWhite Blood Count6.5 [CFU]/mLNormal4.1-10.5The [facility] Physician Group Comment on above:Performed By: #### CBC ####[id number] USABasic Metabolic Panelon 32-07-7389Lqzut gap [Moles/Vol]8.3 mmol/LNormal6.0-15.0The [facility] Physician GroupComment on above:Performed By: #### BMP, CBC ####[place] [id number] USACalcium [Mass/Vol]8.5 mg/dLLow8.6-10.3The [facility] Physician GroupComment on above:Performed By: #### BMP, CBC ####[id number] USAChloride [Moles/Vol] 101 mmol/BEwwzpq30-765Rgk [facility] Physician GroupComment on above:Performed By: #### BMP, CBC ####[place] [id number] USACO2 [Moles/Vol]31.6 mmol/LHigh21.0-31.0The [facility] Physician Group Comment on above:Performed By: #### BMP, CBC ####[address] [address] USACreatinine [Mass/Vol]1.10 mg/dLNormal 0.70-1.30The [facility] Physician GroupComment on above:Performed By: #### BMP, CBC ####[address] [address] [place] Creatinine Clr Calc Ozvvmowx42.53NormalThe [facility] Physician GroupComment on above:Result Comment: PERFORMED BY:[address] [place], [place] [phone] MEDICAL ELÍAS GERMAN M.D.Performed By: #### BMP, CBC ####[address] [address] USAGFR/1.73 sq M.predicted MDRD (S/P/Bld) [Vol rate/Area]mL/min/{1.73_m2}NormalThe [facility] Physician GroupComment on above: Performed By: #### BMP, CBC ####[address] [address] USAGlucose [Mass/Vol]95 mg/oCIsgxdt15-902Xyx [facility] Physician GroupComment on above:Result Comment: Random Glucose Reference Range is dependent on time and content of last meal. Glucose of more than 200 mg/dL in a nonstressed, ambulatory subject supports the diagnosis of Diabetes Mellitus. ADA recommended reference rangePerformed By: #### BMP, CBC ####[address] [address] USAPotassium [Moles/Vol] 3.9 mmol/LNormal3.5-5.1The [facility] Physician GroupComment on above:Performed By: #### BMP, CBC ####[address] [address] USASodium [Moles/Vol]137 mmol/DGwboiv277-960Piv [facility] Physician GroupComment on above:Performed By: #### BMP, CBC ####[address] [address] [address] USAUrea nitrogen [Mass/Vol]33 mg/dLHigh 7-25The [facility] Physician GroupComment on above:Performed By: #### BMP, CBC ####[place] [id number] [facility] Complete Blood Count Auto Diffon 22-29-1707Ztvjamxcx (Bld) [#/Vol]0.0 10*3/uL Normal0.0-0.2The [facility] Physician GroupComment on above:Result Comment: PERFORMED BY:[address] [place], [place] [phone] MEDICAL DIRECTORCELESTE GERMAN M.D.Performed By: #### BMP, CBC ####[place] [id number] USABasophils/100 WBC (Bld)0.8 %Normal.The [facility] Physician GroupComment on above:Performed By: #### BMP, CBC ####[place] [address] USAEosinophils (Bld) [#/Vol]0.0 10*3/uLNormal 0.0-0.45The [facility] Physician GroupComment on above:Performed By: #### BMP, CBC ####[place] [address] [place] Eosinophils/100 WBC (Bld)0.9 %Normal.The [facility] Physician GroupComment on above:Performed By: #### BMP, CBC ####[place] [address] USAErythrocyte distribution width (RBC) [Ratio]14.4 % Owluoh63.0-14.8The [facility] Physician GroupComment on above:Performed By: #### BMP, CBC ####[place] [address] USAHematocrit (Bld) [Volume fraction]33.5 %Low38.8-50.0The [facility] Physician GroupComment on above:Performed By: #### BMP, CBC ####[place] [address] USAHemoglobin (Bld) [Mass/Vol]11.1 g/dL Low13.0-17.0The [facility] Physician GroupComment on above:Performed By: #### BMP, CBC ####[place] [address] USALymphocytes (Bld) [#/Vol]1.0 10*3/uLNormal1.00-4.8The [facility] Physician GroupComment on above:Performed By: #### BMP, CBC ####[place] [address] USALymphocytes/100 WBC (Bld)17.1 %Normal .The [facility] Physician GroupComment on above:Performed By: #### BMP, CBC ####[address] (RBC) [Entitic mass]30.1 ptYtssdp73.5-35.2The [facility] Physician GroupComment on above:Performed By: #### BMP, CBC ####[address] (RBC) [Entitic vol]90.5 sCYbsfml62.5-101 The [facility] Physician GroupComment on above:Performed By: #### BMP, CBC ####[place] [address] USAMean Corpuscular HGB Conc33.2 g/tBVzegnn58.5-35.6The [facility] Physician GroupComment on above:Performed By: #### BMP, CBC ####[place] [address] USAMonocytes (Bld) [#/Vol]0.4 10*3/uLNormal 0.0-0.8The [facility] Physician GroupComment on above:Performed By: #### BMP, CBC ####[place] [address] [place] Monocytes/100 WBC (Bld)6.3 %Normal.The [facility] Physician GroupComment on above:Performed By: #### BMP, CBC ####[address] [address] USANeutrophils (Bld) [#/Vol]4.3 10*3/uLNormal1.8-7.7The [facility] Physician GroupComment on above:Performed By: #### BMP, CBC ####[address] [address] [place] Neutrophils/100 WBC (Bld)74.9 %Normal.The [facility] Physician GroupComment on above:Performed By: #### BMP, CBC ####[place] [id number] USANRBC%0.2 /100{WBC}Normal0-0.5The [facility] Physician GroupComment on above:Performed By: #### BMP, CBC ####[place] [address] USAPlatelet mean volume (Bld) [Entitic vol]8.2 fLNormal6.6-10.1The [facility] Physician GroupComment on above: Performed By: #### BMP, CBC ####[place] [id number] USAPlatelets (Bld) [#/Vol]200 10*3/uBUvuvey749-873Ibx [facility] Physician GroupComment on above:Performed By: #### BMP, CBC ####[place] [id number] USARBC (Bld) [#/Vol]3.70 10*6/uLLow3.90-5.60The [facility] Physician GroupComment on above:Performed By: #### BMP, CBC ####[address] [address] USAWBC (Bld) [#/Vol]5.7 10*3/uLNormal4.1-10.5The [facility] Physician GroupComment on above:Performed By: #### BMP, CBC ####[place] [id number] USAWhite Blood Count5.7 [CFU]/mLNormal4.1-10.5The [facility] Physician GroupComment on above:Performed By: #### BMP, CBC ####[address] [address] USABasic Metabolic Panelon 77-97-8613Eweey gap [Moles/Vol]8.6 mmol/LNormal6.0-15.0The [facility] Physician GroupComment on above:Performed By: #### BMP, CBC ####[address] [address] USACalcium [Mass/Vol]8.3 mg/dLLow8.6-10.3The [facility] Physician GroupComment on above:Performed By: #### BMP, CBC ####[address] [address] USAChloride [Moles/Vol] 105 mmol/JEmzgnz49-711Pkg [facility] Physician GroupComment on above:Performed By: #### BMP, CBC ####[address] [address] USACO2 [Moles/Vol]32.7 mmol/LHigh21.0-31.0The [facility] Physician Group Comment on above:Performed By: #### BMP, CBC ####[place] [id number] USACreatinine [Mass/Vol]1.05 mg/dLNormal 0.70-1.30The [facility] Physician GroupComment on above:Performed By: #### BMP, CBC ####[address] [address] [place] Creatinine Clr Calc Vozsbzko30.23NormalThe [facility] Physician GroupComment on above:Result Comment: PERFORMED BY:[address] [place], [place] [phone] MEDICAL DIRECTORCELESTE GERMAN M.D.Performed By: #### BMP, CBC ####[address] [address] USAGFR/1.73 sq M.predicted MDRD (S/P/Bld) [Vol rate/Area]mL/min/{1.73_m2}NormalThe [facility] Physician GroupComment on above: Performed By: #### BMP, CBC ####[address] [address] USAGlucose [Mass/Vol]87 mg/fDCxpuxb62-295Bqa [facility] Physician GroupComment on above:Result Comment: Random Glucose Reference Range is dependent on time and content of last meal. Glucose of more than 200 mg/dL in a nonstressed, ambulatory subject supports the diagnosis of Diabetes Mellitus. ADA recommended reference rangePerformed By: #### BMP, CBC ####[address] [address] USAPotassium [Moles/Vol] 4.3 mmol/LNormal3.5-5.1The [facility] Physician GroupComment on above:Performed By: #### BMP, CBC ####[place] [id number] USASodium [Moles/Vol]142 mmol/ZSymznk959-252Zda [facility] Physician GroupComment on above:Performed By: #### BMP, CBC ####[address] [address] USAUrea nitrogen [Mass/Vol]30 mg/dLHigh 7-25The [facility] Physician GroupComment on above:Performed By: #### BMP, CBC ####[place] [id number] [place] Complete Blood Count Auto Diffon 04-68-0149Otgsvrdeg (Bld) [#/Vol]0.1 10*3/uL Normal0.0-0.2The [facility] Physician GroupComment on above:Result Comment: PERFORMED BY:[address] [place], [place] [phone] MEDICAL DIRECTORCELESTE GERMAN M.D.Performed By: #### BMP, CBC ####[place] [id number] USABasophils/100 WBC (Bld)0.8 %Normal.The [facility] Physician GroupComment on above:Performed By: #### BMP, CBC ####[address] [place] [address] USAEosinophils (Bld) [#/Vol]0.0 10*3/uLNormal 0.0-0.45The [facility] Physician GroupComment on above:Performed By: #### BMP, CBC ####[place] [address] [place] Eosinophils/100 WBC (Bld)0.6 %Normal.The [facility] Physician GroupComment on above:Performed By: #### BMP, CBC ####[place] [address] USAErythrocyte distribution width (RBC) [Ratio]15.0 % High12.0-14.8The [facility] Physician GroupComment on above:Performed By: #### BMP, CBC ####[place] [address] USAHematocrit (Bld) [Volume fraction]35.8 %Low38.8-50.0The [facility] Physician GroupComment on above:Performed By: #### BMP, CBC ####[place] [address] USAHemoglobin (Bld) [Mass/Vol]11.8 g/dL Low13.0-17.0The [facility] Physician GroupComment on above:Performed By: #### BMP, CBC ####[place] [address] USALymphocytes (Bld) [#/Vol]0.8 10*3/uLLow1.00-4.8The [facility] Physician Group Comment on above:Performed By: #### BMP, CBC ####[place] [address] USALymphocytes/100 WBC (Bld)13.2 %Normal. The [facility] Physician GroupComment on above:Performed By: #### BMP, CBC ####[place] [address] USAMCH (RBC) [Entitic mass]30.2 arIqfurx71.5-35.2The [facility] Physician GroupComment on above:Performed By: #### BMP, CBC ####[place] [address] USAMCV (RBC) [Entitic vol]92.0 nXUbmhhf16.5-101 The [facility] Physician GroupComment on above:Performed By: #### BMP, CBC ####[place] [address] USAMean Corpuscular HGB Conc32.8 g/wJVuozoo98.5-35.6The [facility] Physician GroupComment on above:Performed By: #### BMP, CBC ####[place] [address] USAMonocytes (Bld) [#/Vol]0.3 10*3/uLNormal 0.0-0.8The [facility] Physician GroupComment on above:Performed By: #### BMP, CBC ####[place] [address] [place] Monocytes/100 WBC (Bld)4.9 %Normal.The [facility] Physician GroupComment on above:Performed By: #### BMP, CBC ####[place] [address] USANeutrophils (Bld) [#/Vol]5.1 10*3/uLNormal1.8-7.7The [facility] Physician GroupComment on above:Performed By: #### BMP, CBC ####[place] [address] [place] Neutrophils/100 WBC (Bld)80.5 %Normal.The [facility] Physician GroupComment on above:Performed By: #### BMP, CBC ####[place] [address] USANRBC%0.2 /100{WBC}Normal0-0.5The [facility] Physician GroupComment on above:Performed By: #### BMP, CBC ####[place] [address] USAPlatelet mean volume (Bld) [Entitic vol]8.0 fLNormal6.6-10.1The [facility] Physician GroupComment on above: Performed By: #### BMP, CBC ####[address] [address] USAPlatelets (Bld) [#/Vol]213 10*3/aHIjdbrx035-224Brl [facility] Physician GroupComment on above:Performed By: #### BMP, CBC ####[place] [id number] USARBC (Bld) [#/Vol]3.89 10*6/uLLow3.90-5.60The [facility] Physician GroupComment on above:Performed By: #### BMP, CBC ####[place] [id number] USAWBC (Bld) [#/Vol]6.4 10*3/uLNormal4.1-10.5The [facility] Physician GroupComment on above:Performed By: #### BMP, CBC ####[place] [id number] USAWhite Blood Count6.4 [CFU]/mLNormal4.1-10.5The [facility] Physician GroupComment on above:Performed By: #### BMP, CBC ####[place] [id number] USAGlucose Poct Glucometerson 33-56-1050Taqmotq8Idd8: Cleaned [facility]ician Trace Regional HospitalComment on above:Result Comment: PERFORMED BY:[address] [place]rem[place], [place] [phone] MEDICAL ELÍAS GERMAN M.D.Performed By: #### GLULS ####Point of Care testing,Glucose [Mass/Vol]111 mg/dLColumbia [facility] Institute Physician [facility] Regional HospitalComment on above:Result Comment: Random Glucose Reference Range is dependent on time and content of last meal. Glucose of more than 200 mg/dL in a nonstressed, ambulatory subject supports the diagnosis of Diabetes Mellitus.Performed By: #### GLULS ####Point of Care testing,Commemt1 Glu2: Cleaned MeterNormalThe [place] Physician GroupComment on above:Result Comment: PERFORMED BY:[address] CANDELARIOJeremiSHAR, [place] [phone] MEDICAL DIRECTORCELESTE GERMAN M.D.Performed By: #### GLULS ####Point of Care testing,Glucose [Mass/Vol]97 mg/dLColumbia [facility] Institute Physician GroupComment on above:Result Comment: Random Glucose Reference Range is dependent on time and content of last meal. Glucose of more than 200 mg/dL in a nonstressed, ambulatory subject supports the diagnosis of Diabetes Mellitus.Performed By: #### GLULS ####Point of Care testing,Glucose [Mass/Vol]101 mg/dLColumbia [facility] Institute Physician GroupComment on above:Result Comment: Random Glucose Reference Range is dependent on time and content of last meal. Glucose of more than 200 mg/dL in a nonstressed, ambulatory subject supports the diagnosis of Diabetes Mellitus.PERFORMED BY:[place] [address] [address] CANDELARIOJeremiSHAR, [place] [phone] MEDICAL ELÍAS GERMAN M.D.Performed By: #### GLULS ####Point of Care testing, Vhjguds6Uqq1: Cleaned MeterColumbia Miami Heart Institute Physician GroupComment on above: Result Comment: PERFORMED BY:[address] CANDELARIOJeremiSHAR, [place] [phone] MEDICAL ELÍAS GERMAN M.D.Performed By: #### GLULS ####Point of Care testing,Glucose [Mass/Vol]110 mg/dLColumbia [facility] Institute Physician GroupComment on above:Result Comment: Random Glucose Reference Range is dependent on time and content of last meal. Glucose of more than 200 mg/dL in a nonstressed, ambulatory subject supports the diagnosis of Diabetes Mellitus.Performed By: #### GLULS ####Point of Care testing,Arterial Blood Gason 44-32-0507MJH Base Excess4.8 mmol/LHigh-3.0-3.0The [facility] Physician GroupComment on above:Performed By: #### ABG ####Point of Care testing,ABG Frac Inspired O235 %NormalThe [facility] Physician GroupComment on above:Performed By: #### ABG ####Point of Care testing,ABG Oxygen Content7.6 mmol/LNormal6.6-9.7The [facility] Physician GroupComment on above:Performed By: #### ABG ####Point of Care testing,ABG Oxygen Wdvyifiafm38.4 %Low95.0-100.0[facility] Physician GroupComment on above:Performed By: #### ABG ####Point of Care testing,ABG FZK798.5 mm[Hg]High35.0-45.0[facility] Comment on above:Performed By: #### ABG ####Point of Care testing,ABG PH7.41 Normal7.35-7.45The [facility] Physician GroupComment on above:Performed By: #### ABG ####Point of Care testing,ABG PO260.5 mm[Hg]Low80.0-100.0[facility] Physician GroupComment on above:Performed By: #### ABG ####Point of Care testing,ABG Pressure Ezsifca39.0[facility] Physician GroupComment on above:Performed By: #### ABG ####Point of Care testing,CO2 [Moles/Vol]31.8 mmol/LHigh23.0-27.0[facility] Physician GroupComment on above:Performed By: #### ABG ####Point of Care testing,CPAP5.0NoPending sale to [facility] Comment on above:Performed By: #### ABG ####Point of Care testing,HCO3 (Bld) [Moles/Vol]30.3 mmol/LHigh23.0-29.0[facility] Physician GroupComment on above:Performed By: #### ABG ####Point of Care testing,Respiratory Critical NormalHca Florida Plantation Emergency Physician GroupComment on above:Result Comment: Critical Value called on: 08/07/2025 at 14:47PERFORMED BY:[place] [address] [address] [place], [place] [phone] MEDICAL DIRECTORCELESTE GERMAN M.D.Performed By: #### ABG ####Point of Care testing, VBG Draw SiteRight RadialColumbia Miami Heart Institute Physician GroupComment on above: Performed By: #### ABG ####Point of Care testing,Ventilator ModeCPAPColumbia Miami Heart Institute Physician GroupComment on above:Performed By: #### ABG ####Point of Care testing,ABG Base Excess6.2 mmol/LHigh-3.0-3.0[facility] Physician Group Comment on above:Performed By: #### ABG ####Point of Care testing,ABG Frac Inspired O230 %NormalThe [facility] Physician GroupComment on above:Performed By: #### ABG ####Point of Care testing,ABG Oxygen Content7.1 mmol/LNormal6.6-9.7The [facility] Physician GroupComment on above:Performed By: #### ABG ####Point of Care testing,ABG Oxygen Mtdpzqiqnj68.7 %Low95.0-100.0[facility] Physician GroupComment on above:Performed By: #### ABG ####Point of Care testing,ABG PCO2 42.6 mm[Hg]Qggoel60.0-45.0[facility] Physician GroupComment on above: Performed By: #### ABG ####Point of Care testing,ABG XBGH9EknniuAcfColumbia Miami [facility] Institute Physician GroupComment on above:Performed By: #### ABG ####Point of Care testing,ABG PH7.65Vavn4.35-7.45[facility] Physician GroupComment on above: Performed By: #### ABG ####Point of Care testing,ABG PO258.8 mm[Hg]Low80.0-100.0 [facility] Physician GroupComment on above:Performed By: #### ABG ####Point of Care testing,ABG TV450 mLNormalThe [facility] Physician GroupComment on above: Performed By: #### ABG ####Point of Care testing,CO2 [Moles/Vol]31.8 mmol/LHigh 23.0-27.0[facility] Physician GroupComment on above:Performed By: #### ABG ####Point of Care testing,HCO3 (Bld) [Moles/Vol]30.4 mmol/LHigh23.0-29.0[facility] Physician GroupComment on above:Performed By: #### ABG ####Point of Care testing,Respiratory CriticalColumbia Miami Heart Institute Physician GroupComment on above:Result Comment: Critical Value called on: 08/07/2025 at 05:39PERFORMED BY:[address] [place], [place] [phone] MEDICAL DIRECTORCELESTE GERMAN M.D.Performed By: #### ABG ####Point of Care testing,Set Respiratory Alax97Qyew[address] [place] [address] Physician GroupComment on above:Performed By: #### ABG ####Point of Care testing,VBG Draw SiteLeft BrachialColumbia Miami Heart Institute Physician GroupComment on above:Performed By: #### ABG ####Point of Care testing,Ventilator ModeACNormal [facility] Physician GroupComment on above:Performed By: #### ABG ####Point of Care testing,Basic Metabolic Panelon 03-00-8357Mjiaa gap [Moles/Vol]9.4 mmol/LNormal6.0-15.0[facility] Physician GroupComment on above:Performed By: #### CBC, BMP ####[address] [address] USACalcium [Mass/Vol]8.3 mg/dLLow8.6-10.3[facility]ician Group Comment on above:Performed By: #### CBC, BMP ####[address] [address] USAChloride [Moles/Vol]105 mmol/LNormal 98-107The [facility] Physician GroupComment on above:Performed By: #### CBC, BMP ####[address] [address] USACO2 [Moles/Vol]33.9 mmol/LHigh21.0-31.0[facility] Physician GroupComment on above:Performed By: #### CBC, BMP ####[place] [address] [place] [address] USACreatinine [Mass/Vol]1.08 mg/dLNormal0.70-1.30[facility] Physician GroupComment on above:Performed By: #### CBC, BMP ####[address] [address] [place] Creatinine Clr Calc Mloncstv11.59NormalThe [facility] Physician GroupComment on above:Result Comment: PERFORMED BY:[address] [place], [place] [phone] MEDICAL DIRECTORCELESTE GERMAN M.D.Performed By: #### CBC, BMP ####[address] [address] USAGFR/1.73 sq M.predicted MDRD (S/P/Bld) [Vol rate/Area]mL/min/{1.73_m2}NormalThe [facility] Physician GroupComment on above: Performed By: #### CBC, BMP ####[address] [address] USAGlucose [Mass/Vol]106 mg/gYSyll89-724Spl [facility] Physician GroupComment on above:Result Comment: Random Glucose Reference Range is dependent on time and content of last meal. Glucose of more than 200 mg/dL in a nonstressed, ambulatory subject supports the diagnosis of Diabetes Mellitus. ADA recommended reference rangePerformed By: #### CBC, BMP ####[address] [address] USAPotassium [Moles/Vol] 4.3 mmol/LNormal3.5-5.1[facility] Physician GroupComment on above:Performed By: #### CBC, BMP ####[address] [address] USASodium [Moles/Vol]144 mmol/BLeddch641-780Pxp [facility] Physician GroupComment on above:Performed By: #### CBC, BMP ####[address] [place] [address] USAUrea nitrogen [Mass/Vol]27 mg/dLHigh 7-25The [facility] Physician GroupComment on above:Performed By: #### CBC, BMP ####[place] [id number] [facility] Complete Blood Count Auto Diffon 51-33-0176Hwdrbgplf (Bld) [#/Vol]0.0 10*3/uL Normal0.0-0.2The [facility] Physician GroupComment on above:Result Comment: PERFORMED BY:[address] [place], [place] [phone] MEDICAL DIRECTORCELESTE GERMAN M.D.Performed By: #### CBC, BMP ####[place] [id number] USABasophils/100 WBC (Bld)0.7 %Normal.The [facility] Physician GroupComment on above:Performed By: #### CBC, BMP ####[place] [id number] USAEosinophils (Bld) [#/Vol]0.1 10*3/uLNormal 0.0-0.45The [facility] Physician GroupComment on above:Performed By: #### CBC, BMP ####[place] [address] [place] Eosinophils/100 WBC (Bld)0.8 %Normal.The [facility] Physician GroupComment on above:Performed By: #### CBC, BMP ####[place] [id number] [facility]ITALErythrocyte distribution width (RBC) [Ratio]15.4 % High12.0-14.8The [facility] Physician GroupComment on above:Performed By: #### CBC, BMP ####[place] [address] USAHematocrit (Bld) [Volume fraction]38.0 %Low38.8-50.0[facility] Physician GroupComment on above:Performed By: #### CBC, BMP ####[address] [address] USAHemoglobin (Bld) [Mass/Vol]12.2 g/dL Low13.0-17.0[facility] Physician GroupComment on above:Performed By: #### CBC, BMP ####[address] [address] USALymphocytes (Bld) [#/Vol]0.9 10*3/uLLow1.00-4.8[facility]ician Group Comment on above:Performed By: #### CBC, BMP ####[address] [address] USALymphocytes/100 WBC (Bld)13.0 %Normal. The [facility] Physician GroupComment on above:Performed By: #### CBC, BMP ####[address] [address] USAMCH (RBC) [Entitic mass]30.1 auUyospg05.5-35.2The [facility] Physician GroupComment on above:Performed By: #### CBC, BMP ####[address] [address] USAMCV (RBC) [Entitic vol]93.5 gNSzqoyn25.5-101 The [facility] Physician GroupComment on above:Performed By: #### CBC, BMP ####[address] [address] USAMean Corpuscular HGB Conc32.2 g/dLLow32.5-35.6The [facility] Physician GroupComment on above:Performed By: #### CBC, BMP ####[address] [address] USAMonocytes (Bld) [#/Vol]0.5 10*3/uLNormal0.0-0.8[facility] Physician GroupComment on above:Performed By: #### CBC, BMP ####[address] [address] [place] Monocytes/100 WBC (Bld)8.1 %Normal.The [facility] Physician GroupComment on above:Performed By: #### CBC, BMP ####[address] [address] USANeutrophils (Bld) [#/Vol]5.2 10*3/uLNormal1.8-7.7The [facility] Physician GroupComment on above:Performed By: #### CBC, BMP ####[place] [id number] [place] Neutrophils/100 WBC (Bld)77.4 %Normal.The [facility] Physician GroupComment on above:Performed By: #### CBC, BMP ####[address] [address] USANRBC%0.1 /100{WBC}Normal0-0.5The [facility] Physician GroupComment on above:Performed By: #### CBC, BMP ####[place] [address] USAPlatelet mean volume (Bld) [Entitic vol]7.9 fLNormal6.6-10.1The [facility] Physician GroupComment on above: Performed By: #### CBC, BMP ####[address] [address] USAPlatelets (Bld) [#/Vol]208 10*3/jJChizrp438-605Mrg [facility] Physician GroupComment on above:Performed By: #### CBC, BMP ####[address] [address] USARBC (Bld) [#/Vol]4.07 10*6/uLNormal3.90-5.60The [facility] Physician GroupComment on above:Performed By: #### CBC, BMP ####[address] [address] USAWBC (Bld) [#/Vol]6.7 10*3/uLNormal4.1-10.5The [facility] Physician GroupComment on above:Performed By: #### CBC, BMP ####[place] [id number] USAWhite Blood Count6.7 [CFU]/mLNormal4.1-10.5The [facility] Physician [facility] Regional HospitalComment on above:Performed By: #### CBC, BMP ####[address] [address] USAGlucose Poct Glucometerson 35-77-5749Qhlqnnp [Mass/Vol]104 mg/dLNoPending sale to [facility] [facility] HospitalComment on above:Result Comment: Random Glucose Reference Range is dependent on time and content of last meal. Glucose of more than 200 mg/dL in a nonstressed, ambulatory subject supports the diagnosis of Diabetes Mellitus.PERFORMED BY:[address], [place] [phone] MEDICAL ELÍAS GERMAN M.D.Performed By: #### GLULS ####Point of Care testing, Glucose [Mass/Vol]99 mg/dLNoOhioHealth Mansfield HospitalComment on above: Result Comment: Random Glucose Reference Range is dependent on time and content of last meal. Glucose of more than 200 mg/dL in a nonstressed, ambulatory subject supports the diagnosis of Diabetes Mellitus.PERFORMED BY:[address], [place] [phone] MEDICAL ELÍAS GERMAN M.D.Performed By: #### GLULS ####Point of Care testing,Glucose [Mass/Vol]105 mg/dLNoPending sale to [facility] HospitalComment on above:Result Comment: Random Glucose Reference Range is dependent on time and content of last meal. Glucose of more than 200 mg/dL in a nonstressed, ambulatory subject supports the diagnosis of Diabetes Mellitus.PERFORMED BY:[address]SHAR, [place] [phone] MEDICAL ELÍAS GERMAN M.D.Performed By: #### GLULS ####Point of Care testing,XR chest 1V portableon 10-05-4649JR chest 1V portableNoPending sale to [facility] HospitalArterial Blood Gason 56-32-9987QGK Base Excess9.2 mmol/LHigh-3.0-3.0[facility] Physician GroupComment on above: Performed By: #### ABG ####Point of Care testing,ABG Frac Inspired O245 %Normal [facility] Physician GroupComment on above:Performed By: #### ABG ####Point of Care testing,ABG Oxygen Content7.2 mmol/LNormal6.6-9.7[facility] Physician GroupComment on above:Performed By: #### ABG ####Point of Care testing,ABG Oxygen Tivkrnocjq03.3 %Low95.0-100.0[facility] Physician GroupComment on above:Performed By: #### ABG ####Point of Care testing,ABG KZI407.4 mm[Hg]High 35.0-45.0[facility] Physician GroupComment on above:Performed By: #### ABG ####Point of Care testing,ABG BKEG3IkvmfeMohTGH [facility] Physician GroupComment on above:Performed By: #### ABG ####Point of Care testing,ABG PH7.34Nalt5.35-7.45 [facility] Physician GroupComment on above:Performed By: #### ABG ####Point of Care testing,ABG PO257.6 mm[Hg]Low80.0-100.0[facility] Physician Group Comment on above:Performed By: #### ABG ####Point of Care testing,ABG TV400 mL NormalThe [facility] Physician GroupComment on above:Performed By: #### ABG ####Point of Care testing,CO2 [Moles/Vol]35.7 mmol/LHigh23.0-27.0[facility] Physician GroupComment on above:Performed By: #### ABG ####Point of Care testing,HCO3 (Bld) [Moles/Vol]34.2 mmol/LHigh23.0-29.0[facility] Physician GroupComment on above:Performed By: #### ABG ####Point of Care testing, Respiratory CriticalNormTGH Spring Hill Physician GroupComment on above:Result Comment: Critical Value called on: 08/06/2025 at 04:09PERFORMED BY:[address] [place], [place] [phone] MEDICAL DIRECTORCELESTE GERMAN M.D.Performed By: #### ABG ####Point of Care testing,Set Respiratory Bmcj[address] [place] [address] Physician GroupComment on above:Performed By: #### ABG ####Point of Care testing,VBG Draw SiteRight BrachialColumbia Miami Heart Institute Physician GroupComment on above:Performed By: #### ABG ####Point of Care testing,Ventilator ModeACColumbia Miami Heart Institute Physician GroupComment on above:Performed By: #### ABG ####Point of Care testing,Basic Metabolic Panelon 64-56-7157Flmhu gap [Moles/Vol]8.9 mmol/LNormal6.0-15.0[facility] Physician GroupComment on above:Performed By: #### BMP, TRIG, MG, CBC ####[place] [address] USACalcium [Mass/Vol]8.6 mg/dLNormal8.6-10.3[facility] Physician GroupComment on above: Performed By: #### BMP, TRIG, MG, CBC ####[place] [address] USAChloride [Moles/Vol]109 mmol/UAazh70-695Rjv [facility] Physician GroupComment on above:Performed By: #### BMP, TRIG, MG, CBC ####[place] [id number] USACO2 [Moles/Vol]33.1 mmol/LHigh21.0-31.0[facility] Physician GroupComment on above:Performed By: #### BMP, TRIG, MG, CBC ####[place] [id number] USACreatinine [Mass/Vol]1.07 mg/dLNormal 0.70-1.30[facility] Physician GroupComment on above:Performed By: #### BMP, TRIG, MG, CBC ####[place] [id number] USACreatinine Clr Calc Ncxxtklj08.60NormalThe [facility] Physician Group Comment on above:Performed By: #### BMP, TRIG, MG, CBC ####[place] [id number] USAGFR/1.73 sq M.predicted MDRD (S/P/Bld) [Vol rate/Area]mL/min/{1.73_m2}NormalThe [facility] Physician Group Comment on above:Performed By: #### BMP, TRIG, MG, CBC ####[place] [address] USAGlucose [Mass/Vol]101 mg/dL Htbq74-258Ola [facility] Physician Trace Regional HospitalComment on above:Result Comment: Random Glucose Reference Range is dependent on time and content of last meal. Glucose of more than 200 mg/dL in a nonstressed, ambulatory subject supports the diagnosis of Diabetes Mellitus. ADA recommended reference rangePerformed By: #### BMP, TRIG, MG, CBC ####[place] [address] USAPotassium [Moles/Vol]4.0 mmol/LNormal3.5-5.1[facility] Regional HospitalComment on above:Performed By: #### BMP, TRIG, MG, CBC ####[place] [address] USASodium [Moles/Vol]147 mmol/GIjfo813-800Rta [facility]ician [facility] Regional HospitalComment on above: Performed By: #### BMP, TRIG, MG, CBC ####[place] [id number] USAUrea nitrogen [Mass/Vol]23 mg/dLNormal7-25The [facility] Physician GroupComment on above:Performed By: #### BMP, TRIG, MG, CBC ####[address] Complete Blood Count Auto Diffon 06-88-3464Ribxuuhjv (Bld) [#/Vol]0.0 10*3/uL Normal0.0-0.2The [facility] Physician GroupComment on above:Result Comment: PERFORMED BY:[address] [place], [place] [phone] MEDICAL DIRECTORCELESTE GERMAN M.D.Performed By: #### BMP, TRIG, MG, CBC ####[place] [id number] USABasophils/100 WBC (Bld)0.2 %Normal.[facility] Physician GroupComment on above:Performed By: #### BMP, TRIG, MG, CBC ####[place] [address] [place] Eosinophils (Bld) [#/Vol]0.1 10*3/uLNormal0.0-0.45The [facility] Physician Group Comment on above:Performed By: #### BMP, TRIG, MG, CBC ####[place] [address] USAEosinophils/100 WBC (Bld)1.2 % Normal.[facility] Physician GroupComment on above:Performed By: #### BMP, TRIG, MG, CBC ####[place] [address] USAErythrocyte distribution width (RBC) [Ratio]15.8 %High12.0-14.8The [facility] Physician GroupComment on above:Performed By: #### BMP, TRIG, MG, CBC ####[place] [id number] [place] Hematocrit (Bld) [Volume fraction]36.4 %Low38.8-50.0[facility] Physician GroupComment on above:Performed By: #### BMP, TRIG, MG, CBC ####[place] [id number] USAHemoglobin (Bld) [Mass/Vol]12.1 g/dLLow13.0-17.0[facility] Physician GroupComment on above: Performed By: #### BMP, TRIG, MG, CBC ####[place] [address] USALymphocytes (Bld) [#/Vol]0.6 10*3/uLLow 1.00-4.8[facility] Physician GroupComment on above:Performed By: #### BMP, TRIG, MG, CBC ####[place] [id number] USALymphocytes/100 WBC (Bld)10.3 %Normal.The [facility] Physician Group Comment on above:Performed By: #### BMP, TRIG, MG, CBC ####[place] [id number] [facility] (RBC) [Entitic mass]30.5 ktTcohmr17.5-35.2The [facility] Physician GroupComment on above:Performed By: #### BMP, TRIG, MG, CBC ####[address] (RBC) [Entitic vol]92.1 mMRipmsp42.5-101The [facility] Physician GroupComment on above:Performed By: #### BMP, TRIG, MG, CBC ####[place] [address] USAMean Corpuscular HGB Conc33.1 g/rMUpsadh96.5-35.6The [facility] Physician GroupComment on above:Performed By: #### BMP, TRIG, MG, CBC ####[place] [address] USAMonocytes (Bld) [#/Vol]0.4 10*3/uL Normal0.0-0.8The [facility] Physician GroupComment on above:Performed By: #### BMP, TRIG, MG, CBC ####[place] [address] USAMonocytes/100 WBC (Bld)7.1 %Normal.The [facility] Physician Group Comment on above:Performed By: #### BMP, TRIG, MG, CBC ####[place] [address] USANeutrophils (Bld) [#/Vol]4.9 10*3/uLNormal1.8-7.7The [facility] Physician GroupComment on above:Performed By: #### BMP, TRIG, MG, CBC ####[place] [address] USANeutrophils/100 WBC (Bld)81.2 %Normal.[facility] Physician GroupComment on above:Performed By: #### BMP, TRIG, MG, CBC ####[place] [address] USANRBC% 0.0 /100{WBC}Normal0-0.5The [facility] Physician GroupComment on above:Performed By: #### BMP, TRIG, MG, CBC ####[place] [address] USAPlatelet mean volume (Bld) [Entitic vol]7.5 fLNormal 6.6-10.1The [facility] Physician GroupComment on above:Performed By: #### BMP, TRIG, MG, CBC ####[place] [address] USAPlatelets (Bld) [#/Vol]208 10*3/yCEbnwkk620-813Yqk [facility] Physician GroupComment on above:Performed By: #### BMP, TRIG, MG, CBC ####[place] [address] USARBC (Bld) [#/Vol]3.95 10*6/uLNormal3.90-5.60The [facility] Physician GroupComment on above:Performed By: #### BMP, TRIG, MG, CBC ####[place] [address] USAWBC (Bld) [#/Vol]6.0 10*3/uLNormal4.1-10.5The [facility] Physician GroupComment on above:Performed By: #### BMP, TRIG, MG, CBC ####[place] [address] USAWhite Blood Count6.0 [CFU]/mLNormal4.1-10.5The [facility] Physician GroupComment on above:Performed By: #### BMP, TRIG, MG, CBC ####[place] [address] [place] [address] USAGlucose Poct Glucometerson 08-06-2025 Glucose [Mass/Vol]147 mg/dLNoPending sale to [facility] Physician GroupComment on above: Result Comment: Random Glucose Reference Range is dependent on time and content of last meal. Glucose of more than 200 mg/dL in a nonstressed, ambulatory subject supports the diagnosis of Diabetes Mellitus.PERFORMED BY:[address] CANDELARIOJeremiSHAR, [place] [phone] MEDICAL ELÍAS GERMAN M.D.Performed By: #### GLULS ####Point of Care testing,Glucose [Mass/Vol]120 mg/dLNoPending sale to [facility] Physician GroupComment on above:Result Comment: Random Glucose Reference Range is dependent on time and content of last meal. Glucose of more than 200 mg/dL in a nonstressed, ambulatory subject supports the diagnosis of Diabetes Mellitus.PERFORMED BY:[address] [place], [place] [phone] MEDICAL ELÍAS GERMAN M.D.Performed By: #### GLULS ####Point of Care testing,Glucose [Mass/Vol]117 mg/dLNoPending sale to [facility] Physician GroupComment on above:Result Comment: Random Glucose Reference Range is dependent on time and content of last meal. Glucose of more than 200 mg/dL in a nonstressed, ambulatory subject supports the diagnosis of Diabetes Mellitus.PERFORMED BY:[address] ANDREEJeremiSH[place], [place] [phone] MEDICAL ELÍAS GERMAN M.D.Performed By: #### GLULS ####Point of Care testing,Magnesiumon 08-06-2025 Magnesium [Mass/Vol]1.9 mg/dLNormal1.9-2.7The [facility] Physician GroupComment on above:Result Comment: PERFORMED BY:[address] [place], [place] [phone] MEDICAL ELÍAS GERMAN M.D.Performed By: #### BMP, TRIG, MG, CBC ####[facility] [address] [place] [address] USATriglycerideson 08-06-2025 Triglyceride [Mass/Vol]70 mg/iUEbsnyh45-578Phf [facility] Physician GroupComment on above:Result Comment: TRIG ATP III CLASSIFICATION TRIG less than 150 mg/dL Normal TRIG 150-199 mg/dL Borderline high TRIG 200-500 mg/dL High TRIG greater than 500 mg/dL Very high Standard traceable to the Center for Disease Conrtrol and Prevention (CDC) test method.PERFORMED BY:[facility] [place], [place] [phone] MEDICAL DIRECTORCELESTE GERMAN M.D.Performed By: #### BMP, TRIG, MG, CBC ####[place] [address] [place] [address] USAXR chest 1V portable on 84-84-6580PT chest 1V portableNormalThe [facility] HospitalArterial Blood Gason 94-54-1379RKA Base Excess8.4 mmol/LHigh-3.0-3.0The [facility] Physician GroupComment on above:Performed By: #### ABG ####Point of Care testing,ABG Frac Inspired O255 %NormalThe [facility] Physician GroupComment on above:Performed By: #### ABG ####Point of Care testing,ABG Oxygen Content7.3 mmol/LNormal6.6-9.7The [facility] Physician GroupComment on above:Performed By: #### ABG ####Point of Care testing,ABG Oxygen Uqkmpzauss68.3 %Bzclgz55.0-100.0 [facility] Physician GroupComment on above:Performed By: #### ABG ####Point of Care testing,ABG UKE615.7 mm[Hg]High35.0-45.0The [facility] Comment on above:Performed By: #### ABG ####Point of Care testing,ABG PEEP5 NormalThe [facility] Physician GroupComment on above:Performed By: #### ABG ####Point of Care testing,ABG PH7.76Gyrg9.35-7.45The [facility] Physician Group Comment on above:Performed By: #### ABG ####Point of Care testing,ABG PO274.4 mm[Hg]Low80.0-100.0The [facility] Physician GroupComment on above:Performed By: #### ABG ####Point of Care testing,ABG TV500 mLNormalThe [facility] Physician GroupComment on above:Performed By: #### ABG ####Point of Care testing,CO2 [Moles/Vol]34.4 mmol/LHigh23.0-27.0[facility] Physician GroupComment on above:Performed By: #### ABG ####Point of Care testing,HCO3 (Bld) [Moles/Vol] 33.0 mmol/LHigh23.0-29.0The [facility] Physician GroupComment on above:Performed By: #### ABG ####Point of Care testing,Respiratory CriticalNoPending sale to [facility] Physician GroupComment on above:Result Comment: Critical Value called on: 08/05/2025 at 04:04PERFORMED BY:[facility] [place], [place] [phone] MEDICAL DIRECTORCELESTE GERMAN M.D.Performed By: #### ABG ####Point of Care testing,Set Respiratory Rate12 NormalThe [facility] Physician GroupComment on above:Performed By: #### ABG ####Point of Care testing,VBG Draw SiteRight BrachialNoPending sale to [facility] Physician GroupComment on above:Performed By: #### ABG ####Point of Care testing,Ventilator ModeACNoPending sale to [facility] Physician GroupComment on above: Performed By: #### ABG ####Point of Care testing,Basic Metabolic Panelon 08-01-6464Pbsgr gap [Moles/Vol]8.6 mmol/LNormal6.0-15.0The [facility] Physician GroupComment on above:Performed By: #### BMP, CBC ####[facility] [facility] [place] [address] USACalcium [Mass/Vol]8.4 mg/dLLow 8.6-10.3The [facility] Physician GroupComment on above:Performed By: #### BMP, CBC ####[address] [address] [place] Chloride [Moles/Vol]107 mmol/AIibpal09-631Iii [facility] Physician GroupComment on above:Performed By: #### BMP, CBC ####[address] [address] USACO2 [Moles/Vol]31.8 mmol/LHigh21.0-31.0The [facility] Physician GroupComment on above:Performed By: #### BMP, CBC ####[address] [address] [place] Creatinine [Mass/Vol]1.06 mg/dLNormal0.70-1.30The [facility] Physician Group Comment on above:Performed By: #### BMP, CBC ####[place] [id number] USACreatinine Clr Calc Wcayuirk08.06 NormalThe [facility] Physician GroupComment on above:Result Comment: PERFORMED BY:[address] ANDREEJeremiWEST [place], [place] [phone] MEDICAL DIRECTORCELESTE GERMAN M.D.Performed By: #### BMP, CBC ####[address] [address] [place] GFR/1.73 sq M.predicted MDRD (S/P/Bld) [Vol rate/Area]mL/min/{1.73_m2}NormalThe [facility] Physician GroupComment on above:Performed By: #### BMP, CBC ####[address] [address] USAGlucose [Mass/Vol]131 mg/eVWfjx02-518Bws [facility] Physician GroupComment on above: Result Comment: Random Glucose Reference Range is dependent on time and content of last meal. Glucose of more than 200 mg/dL in a nonstressed, ambulatory subject supports the diagnosis of Diabetes Mellitus. ADA recommended reference rangePerformed By: #### BMP, CBC ####[address] [place] [address] USAPotassium [Moles/Vol]3.4 mmol/LLow3.5-5.1The [facility] Physician GroupComment on above:Performed By: #### BMP, CBC ####[place] [address] USASodium [Moles/Vol]144 mmol/ULgkdkn419-381Aqi [facility] Physician GroupComment on above: Performed By: #### BMP, CBC ####[place] [address] USAUrea nitrogen [Mass/Vol]27 mg/dLHigh7-25The [facility] Physician GroupComment on above:Performed By: #### BMP, CBC ####[address] Complete Blood Count Auto Diffon 08-37-4468Gidxmmxzl (Bld) [#/Vol]0.0 10*3/uL Normal0.0-0.2The [facility] Physician [facility] Regional HospitalComment on above:Result Comment: PERFORMED BY:[address] [place], [place] [phone] MEDICAL DIRECTORCELESTE GERMAN M.D.Performed By: #### BMP, CBC ####[place] [address] USABasophils/100 WBC (Bld)0.5 %Normal.[facility] Physician GroupComment on above:Performed By: #### BMP, CBC ####[place] [address] USAEosinophils (Bld) [#/Vol]0.1 10*3/uLNormal 0.0-0.45The [facility] Physician Trace Regional HospitalComment on above:Performed By: #### BMP, CBC ####[place] [address] [place] Eosinophils/100 WBC (Bld)1.8 %Normal.The [facility] Physician GroupComment on above:Performed By: #### BMP, CBC ####[facility] [place] [address] USAErythrocyte distribution width (RBC) [Ratio]15.4 % High12.0-14.8The [facility] Physician GroupComment on above:Performed By: #### BMP, CBC ####[place] [address] USAHematocrit (Bld) [Volume fraction]34.2 %Low38.8-50.0[facility] Physician GroupComment on above:Performed By: #### BMP, CBC ####[place] [address] USAHemoglobin (Bld) [Mass/Vol]11.3 g/dL Low13.0-17.0The [facility] Physician GroupComment on above:Performed By: #### BMP, CBC ####[place] [address] USALymphocytes (Bld) [#/Vol]0.5 10*3/uLLow1.00-4.8The [facility] Physician Group Comment on above:Performed By: #### BMP, CBC ####[place] [address] USALymphocytes/100 WBC (Bld)11.2 %Normal. [facility] Physician GroupComment on above:Performed By: #### BMP, CBC ####[place] [address] USAMCH (RBC) [Entitic mass]30.5 oeNbrqqk52.5-35.2The [facility] Physician GroupComment on above:Performed By: #### BMP, CBC ####[place] [id number] USAMCV (RBC) [Entitic vol]92.6 vABgbnzw26.5-101 The [facility] Physician GroupComment on above:Performed By: #### BMP, CBC ####[place] [id number] USAMean Corpuscular HGB Conc32.9 g/vWGixzod84.5-35.6The [facility] Physician GroupComment on above:Performed By: #### BMP, CBC ####[address] [address] USAMonocytes (Bld) [#/Vol]0.5 10*3/uLNormal 0.0-0.8The [facility] Physician GroupComment on above:Performed By: #### BMP, CBC ####[place] [id number] [place] Monocytes/100 WBC (Bld)9.7 %Normal.[facility] Physician GroupComment on above:Performed By: #### BMP, CBC ####[place] [address] USANeutrophils (Bld) [#/Vol]3.6 10*3/uLNormal1.8-7.7The [facility] Physician GroupComment on above:Performed By: #### BMP, CBC ####[place] [address] [place] Neutrophils/100 WBC (Bld)76.8 %Normal.[facility] Physician GroupComment on above:Performed By: #### BMP, CBC ####[address] [address] USANRBC%0.2 /100{WBC}Normal0-0.5The [facility] Physician GroupComment on above:Performed By: #### BMP, CBC ####[place] [id number] USAPlatelet mean volume (Bld) [Entitic vol]7.3 fLNormal6.6-10.1The [facility] Physician GroupComment on above: Performed By: #### BMP, CBC ####[address] [address] USAPlatelets (Bld) [#/Vol]191 10*3/oPGlclby282-571Qru [facility] Physician GroupComment on above:Performed By: #### BMP, CBC ####[place] [address] USARBC (Bld) [#/Vol]3.69 10*6/uLLow3.90-5.60The [facility] Physician GroupComment on above:Performed By: #### BMP, CBC ####[address] [address] USAWBC (Bld) [#/Vol]4.7 10*3/uLNormal4.1-10.5The [facility] Physician GroupComment on above:Performed By: #### BMP, CBC ####[address] [address] USAWhite Blood Count4.7 [CFU]/mLNormal4.1-10.5The [facility] Physician GroupComment on above:Performed By: #### BMP, CBC ####[address] [address] USAGlucose Poct Glucometerson 32-51-0855Wutslic [Mass/Vol]139 mg/dLNoPending sale to [facility] HospitalComment on above:Result Comment: Random Glucose Reference Range is dependent on time and content of last meal. Glucose of more than 200 mg/dL in a nonstressed, ambulatory subject supports the diagnosis of Diabetes Mellitus.PERFORMED BY:[address] [place], [place] [phone] MEDICAL ELÍAS GERMAN M.D.Performed By: #### GLULS ####Point of Care testing, Glucose [Mass/Vol]85 mg/dLNoPending sale to [facility] Physician GroupComment on above: Result Comment: Random Glucose Reference Range is dependent on time and content of last meal. Glucose of more than 200 mg/dL in a nonstressed, ambulatory subject supports the diagnosis of Diabetes Mellitus.PERFORMED BY:[address] [place], [place] [phone] MEDICAL ELÍAS GERMAN M.D.Performed By: #### GLULS ####Point of Care testing,Glucose [Mass/Vol]127 mg/dLNoPending sale to [facility] Physician GroupComment on above:Result Comment: Random Glucose Reference Range is dependent on time and content of last meal. Glucose of more than 200 mg/dL in a nonstressed, ambulatory subject supports the diagnosis of Diabetes Mellitus.PERFORMED BY:[place] [address] [address] [place], [place] [phone] MEDICAL ELÍAS GERMAN M.D.Performed By: #### GLULS ####Point of Care testing,Glucose [Mass/Vol]168 mg/dLColumbia Miami Heart Institute Physician [facility] HospitalComment on above:Result Comment: Random Glucose Reference Range is dependent on time and content of last meal. Glucose of more than 200 mg/dL in a nonstressed, ambulatory subject supports the diagnosis of Diabetes Mellitus.PERFORMED BY:[place] [address] [address] [place], [place] [phone] MEDICAL ELÍAS GERMAN M.D.Performed By: #### GLULS ####Point of Care testing,XR chest 1V portableon 43-31-3437IU chest 1V portableNoPending sale to [facility] HospitalAerobic Culture on 91-16-4583Lfwzivu CultureNoPending sale to [facility] HospitalComment on above: Performed By: #### GS, AERC ####[address] [address] USAAnti-Xa UF Heparinon 76-83-5034Dlzs-Xa UF Heparin 0.63Nqmpkk2.30-0.70[facility]ician Trace Regional HospitalComment on above:Result Comment: Use the aPTT protocol when triglycerides are > 800 mg/dL, total bilirubin is > 20 mg/dL and/or patient has received a DOAC, Fondaparinux or LMWH within 72 hours AND baseline anti-Xa level is > 0.7 units/mLPERFORMED BY:[address] CANDELARIOJeremiSHAR, [place] [phone] MEDICAL ELÍAS GERMAN M.D.Performed By: #### UFHEP ####[address] [address] USAArterial Blood Gason [id number] Base Excess3.2 mmol/LHigh-3.0-3.0[facility] Comment on above:Performed By: #### ABG ####Point of Care testing,ABG Frac Inspired O265 %NormalThe [facility] Physician GroupComment on above:Performed By: #### ABG ####Point of Care testing,ABG Oxygen Content6.9 mmol/LNormal6.6-9.7The [facility] Physician GroupComment on above:Performed By: #### ABG ####Point of Care testing,ABG Oxygen Pkrvotxvll53.4 %Low95.0-100.0[facility] Physician GroupComment on above:Performed By: #### ABG ####Point of Care testing,ABG PCO2 45.5 mm[Hg]High35.0-45.0[facility] Physician GroupComment on above:Performed By: #### ABG ####Point of Care testing,ABG PIJH5ZucjkiCvb [facility] Physician GroupComment on above:Performed By: #### ABG ####Point of Care testing,ABG PH 7.70Gjsjij8.35-7.45[facility] Physician GroupComment on above:Performed By: #### ABG ####Point of Care testing,ABG PO270.1 mm[Hg]Low80.0-100.0[facility] Physician GroupComment on above:Performed By: #### ABG ####Point of Care testing,ABG TV500 mLNormalThe [facility] Physician GroupComment on above: Performed By: #### ABG ####Point of Care testing,CO2 [Moles/Vol]29.7 mmol/LHigh 23.0-27.0[facility] Physician GroupComment on above:Performed By: #### ABG ####Point of Care testing,HCO3 (Bld) [Moles/Vol]28.3 mmol/CKvsqvw76.0-29.0[facility] Physician GroupComment on above:Performed By: #### ABG ####Point of Care testing,Respiratory CriticalNormTGH Spring Hill Physician GroupComment on above:Result Comment: Critical Value called on: 2025 at 06:09PERFORMED BY:[address] [address] [address] [place], [place] [phone] MEDICAL DIRECTORCELESTE GERMAN M.D.Performed By: #### ABG ####Point of Care testing,Set Respiratory Qcht57FmzotaSjbColumbia Miami Heart Institute Physician GroupComment on above:Performed By: #### ABG ####Point of Care testing,VBG Draw SiteRight RadialColumbia Miami Heart Institute Physician GroupComment on above:Performed By: #### ABG ####Point of Care testing,Ventilator ModeACNormal [facility] Physician GroupComment on above:Performed By: #### ABG ####Point of Care testing,Basic Metabolic Panelon 27-59-1696Zzvkl gap [Moles/Vol]10.5 mmol/LNormal6.0-15.0[facility] Physician GroupComment on above:Performed By: #### BMP, CBC ####[address] [address] USACalcium [Mass/Vol]8.5 mg/dLLow8.6-10.3[facility] Comment on above:Performed By: #### BMP, CBC ####[address] [address] USAChloride [Moles/Vol]107 mmol/LNormal 98-107The [facility] Physician GroupComment on above:Performed By: #### BMP, CBC ####[address] [address] USACO2 [Moles/Vol]27.9 mmol/NAfwowa88.0-31.0[facility] Physician GroupComment on above:Performed By: #### BMP, CBC ####[address] [address] USACreatinine [Mass/Vol]1.11 mg/dLNormal0.70-1.30[facility] Physician GroupComment on above:Performed By: #### BMP, CBC ####[address] [address] [place] Creatinine Clr Calc Awzxenvg16.60NormUK Healthcaree [facility] Physician GroupComment on above:Result Comment: PERFORMED BY:[address] [address] [address] [place], [place] [phone] MEDICAL DIRECTORCELESTE GERMAN M.D.Performed By: #### LISA, CBC ####[address] [address] USAGFR/1.73 sq M.predicted MDRD (S/P/Bld) [Vol rate/Area]mL/min/{1.73_m2}NormalThe [facility] Physician GroupComment on above: Performed By: #### LISA, CBC ####[address] [address] USAGlucose [Mass/Vol]88 mg/hKLvnuai58-397Chv [facility] Physician GroupComment on above:Result Comment: Random Glucose Reference Range is dependent on time and content of last meal. Glucose of more than 200 mg/dL in a nonstressed, ambulatory subject supports the diagnosis of Diabetes Mellitus. ADA recommended reference rangePerformed By: #### LISA, CBC ####[address] [address] USAPotassium [Moles/Vol] 3.4 mmol/LLow3.5-5.1[facility] Physician GroupComment on above:Performed By: #### LISA, CBC ####[place] [id number] USASodium [Moles/Vol]142 mmol/HUncqsg728-556Blc [facility] Comment on above:Performed By: #### LISA, CBC ####[address] [address] USAUrea nitrogen [Mass/Vol]34 mg/dLHigh 7-25The [facility] Physician GroupComment on above:Performed By: #### LISA, CBC ####[place] [id number] [facility] Complete Blood Count Auto Diffon 89-61-1240Thgweqgel (Bld) [#/Vol]0.0 10*3/uL Normal0.0-0.2The [facility] Physician GroupComment on above:Result Comment: PERFORMED BY:[address] [phone] MEDICAL DIRECTORCELESTE GERMAN M.D.Performed By: #### BMP, CBC ####[place] [id number] USABasophils/100 WBC (Bld)0.3 %Normal.[facility] Physician GroupComment on above:Performed By: #### BMP, CBC ####[place] [address] USAEosinophils (Bld) [#/Vol]0.0 10*3/uLNormal 0.0-0.45The [facility] Physician GroupComment on above:Performed By: #### BMP, CBC ####[place] [address] [place] Eosinophils/100 WBC (Bld)0.6 %Normal.The [facility] Physician GroupComment on above:Performed By: #### BMP, CBC ####[place] [address] USAErythrocyte distribution width (RBC) [Ratio]15.8 % High12.0-14.8[facility] Physician GroupComment on above:Performed By: #### BMP, CBC ####[place] [address] USAHematocrit (Bld) [Volume fraction]35.2 %Low38.8-50.0[facility] Physician GroupComment on above:Performed By: #### BMP, CBC ####[place] [id number] USAHemoglobin (Bld) [Mass/Vol]11.6 g/dL Low13.0-17.0[facility] Physician GroupComment on above:Performed By: #### BMP, CBC ####[place] [id number] USALymphocytes (Bld) [#/Vol]0.4 10*3/uLLow1.00-4.8The [facility]ician [facility] Comment on above:Performed By: #### BMP, CBC ####[address] [address] USALymphocytes/100 WBC (Bld)9.6 %Normal. The [facility] Physician GroupComment on above:Performed By: #### BMP, CBC ####[address]H (RBC) [Entitic mass]30.5 etPknxxa61.5-35.2The [facility] Physician GroupComment on above:Performed By: #### BMP, CBC ####[address]V (RBC) [Entitic vol]92.2 xILucrel82.5-101 The [facility] Physician GroupComment on above:Performed By: #### BMP, CBC ####[place] [address] USAMean Corpuscular HGB Conc33.0 g/gQKkkcgl07.5-35.6The [facility] Physician GroupComment on above:Performed By: #### BMP, CBC ####[place] [address] USAMonocytes (Bld) [#/Vol]0.5 10*3/uLNormal 0.0-0.8The [facility] Physician GroupComment on above:Performed By: #### BMP, CBC ####[place] [address] [place] Monocytes/100 WBC (Bld)11.2 %Normal.The [facility] Physician GroupComment on above:Performed By: #### BMP, CBC ####[place] [address] USANeutrophils (Bld) [#/Vol]3.4 10*3/uLNormal1.8-7.7The [facility] Physician GroupComment on above:Performed By: #### BMP, CBC ####[place] [address] [place] Neutrophils/100 WBC (Bld)78.3 %Normal.The [facility] Physician GroupComment on above:Performed By: #### BMP, CBC ####[address] [address] USANRBC%0.1 /100{WBC}Normal0-0.5The [facility] Physician GroupComment on above:Performed By: #### BMP, CBC ####[address] [address] USAPlatelet mean volume (Bld) [Entitic vol]7.2 fLNormal6.6-10.1The [facility] Physician GroupComment on above: Performed By: #### BMP, CBC ####[address] [address] USAPlatelets (Bld) [#/Vol]181 10*3/mTPfrheu416-040Ymo [facility] Physician GroupComment on above:Performed By: #### BMP, CBC ####[address] [address] USARBC (Bld) [#/Vol]3.82 10*6/uLLow3.90-5.60The [facility] Physician GroupComment on above:Performed By: #### BMP, CBC ####[address] [address] USAWBC (Bld) [#/Vol]4.3 10*3/uLNormal4.1-10.5The [facility] Physician GroupComment on above:Performed By: #### BMP, CBC ####[address] [address] USAWhite Blood Count4.3 [CFU]/mLNormal4.1-10.5The [facility] Physician GroupComment on above:Performed By: #### BMP, CBC ####[address] [address] USAECG 12 lead ECGon 58-56-9385QQU 12 lead ECGColumbia Miami Heart Institute Physician Trace Regional HospitalGlucose Poct Glucometerson 57-87-7958Gpkpxnn8Fuk0: Cleaned MeterNoPending sale to [facility] Physician GroupComment on above:Result Comment: PERFORMED BY:[address] [place]ASH[place], [place] [phone] MEDICAL DIRECTORCELESTE GERMAN M.D.Performed By: #### GLULS ####Point of Care testing,Glucose [Mass/Vol]126 mg/dLColumbia Miami Heart Institute Physician GroupComment on above:Result Comment: Random Glucose Reference Range is dependent on time and content of last meal. Glucose of more than 200 mg/dL in a nonstressed, ambulatory subject supports the diagnosis of Diabetes Mellitus.Performed By: #### GLULS ####Point of Care testing,Commemt1 Glu2: Cleaned MeterNoPending sale to [facility] Physician GroupComment on above:Result Comment: PERFORMED BY:[facility] AVScarlettJeremiSHAR, [place] [phone] MEDICAL DIRECTORCELESTE GERMAN M.D.Performed By: #### GLULS ####Point of Care testing,Glucose [Mass/Vol]111 mg/dLNoPending sale to [facility] Physician GroupComment on above:Result Comment: Random Glucose Reference Range is dependent on time and content of last meal. Glucose of more than 200 mg/dL in a nonstressed, ambulatory subject supports the diagnosis of Diabetes Mellitus.Performed By: #### GLULS ####Point of Care testing,Gram Stain on 91-31-1720Tjwhxhyfunz observation Gram stain Nom (Unsp spec)Gram Stain Result 3+ White Blood Cells 1+ Epithelial Cells 1+ Gram Positive Cocci PERFORMED BY: [facility] [address] [place] [address] PATHOLOGIST AWARD MACHINE OPERATOR CELESTE GERMAN M.D.NormalThe [facility] Physician GroupComment on above: Performed By: #### GS, AERC ####[facility] [place] [address] USATriglycerideson 77-29-5937Gjdflqujhker [Mass/Vol]109 mg/vNWvchph12-863Jrk [facility] Physician GroupComment on above:Result Comment: TRIG ATP III CLASSIFICATION TRIG less than 150 mg/dL Normal TRIG 150-199 mg/dL Borderline high TRIG 200-500 mg/dL High TRIG greater than 500 mg/dL Very high Standard traceable to the Center for Disease Conrtrol and Prevention (CDC) test method.PERFORMED BY:[address] [place]OFFE[place], [place] [phone] MEDICAL ELÍAS GERMAN M.D.Performed By: #### TRIG ####[address] [address] USAXR chest 1V portableon 34-49-1948TT chest 1V portableNormalThe [facility] Physician GroupAnti-Xa UF Heparinon 28-63-5861Uaqz-Xa UF Heparin0.35Normal 0.30-0.70The [facility] Physician Trace Regional HospitalComment on above:Result Comment: Use the aPTT protocol when triglycerides are > 800 mg/dL, total bilirubin is > 20 mg/dL and/or patient has received a DOAC, Fondaparinux or LMWH within 72 hours AND baseline anti-Xa level is > 0.7 units/mLPERFORMED BY:[address] [place]OFFE[place], [place] [phone] MEDICAL ELÍAS GERMAN M.D.Performed By: #### UFHEP ####[address] [address] USAArterial Blood Gason 23-20-7563CME Base Excess-0.6 mmol/LNormal-3.0-3.0The [facility] Physician Group Comment on above:Performed By: #### ABG ####Point of Care testing,ABG Frac Inspired O260 %NormalThe [facility] Physician GroupComment on above:Performed By: #### ABG ####Point of Care testing,ABG Oxygen Content6.7 mmol/LNormal6.6-9.7The [facility] Physician Trace Regional HospitalComment on above:Performed By: #### ABG ####Point of Care testing,ABG Oxygen Qevsxavtku19.9 %Low95.0-100.0The [facility] Physician GroupComment on above:Performed By: #### ABG ####Point of Care testing,ABG PCO2 47.1 mm[Hg]High35.0-45.0The [facility] Physician GroupComment on above:Performed By: #### ABG ####Point of Care testing,ABG UDBP1IbrnzmAmrPending sale to [facility] Physician GroupComment on above:Performed By: #### ABG ####Point of Care testing,ABG PH 7.56Sujxdg0.35-7.45The [facility] Physician GroupComment on above:Performed By: #### ABG ####Point of Care testing,ABG PO275.5 mm[Hg]Low80.0-100.0The [facility] Physician GroupComment on above:Performed By: #### ABG ####Point of Care testing,ABG TV500 mLNormalThe [facility] Physician GroupComment on above: Performed By: #### ABG ####Point of Care testing,CO2 [Moles/Vol]26.7 mmol/L Oixdor77.0-27.0The [facility] Physician GroupComment on above:Performed By: #### ABG ####Point of Care testing,HCO3 (Bld) [Moles/Vol]25.3 mmol/NSshpmc00.0-29.0 The [facility] Physician GroupComment on above:Performed By: #### ABG ####Point of Care testing,Respiratory CriticalColumbia Miami Heart Institute Physician GroupComment on above:Result Comment: Critical Value called on: 08/03/2025 at 04:44PERFORMED BY:[facility] DOMINGUEZUNIONV[place]LE, [place] [phone] MEDICAL DIRECTORCELESTE GERMAN M.D.Performed By: #### ABG ####Point of Care testing,Set Respiratory Rpwb95IvjjkvVpfPending sale to [facility] Physician GroupComment on above:Performed By: #### ABG ####Point of Care testing,VBG Draw SiteRight RadialColumbia Miami Heart Institute Physician GroupComment on above:Performed By: #### ABG ####Point of Care testing,Ventilator ModeACNormal [facility] Physician GroupComment on above:Performed By: #### ABG ####Point of Care testing,Basic Metabolic Panelon 93-61-0168Feyhj gap [Moles/Vol]7.9 mmol/LNormal6.0-15.0The [facility] Physician GroupComment on above:Performed By: #### CBC, BMP ####[address] [address] USACalcium [Mass/Vol]8.1 mg/dLLow8.6-10.3The [facility] Physician Group Comment on above:Performed By: #### CBC, BMP ####[address] [address] USAChloride [Moles/Vol]106 mmol/LNormal 98-107The [facility] Physician GroupComment on above:Performed By: #### CBC, BMP ####[address] [address] USACO2 [Moles/Vol]28.9 mmol/JQnjwje79.0-31.0The [facility] Physician GroupComment on above:Performed By: #### CBC, BMP ####[address] [address] USACreatinine [Mass/Vol]1.49 mg/dLHigh0.70-1.30The [facility] Physician GroupComment on above:Performed By: #### CBC, BMP ####[address] [address] [place] Creatinine Clr Calc Crqogifv15.84NormalThe [facility] Physician GroupComment on above:Result Comment: PERFORMED BY:[address] NELLYScarlettJeremiSHAR, [place] [phone] MEDICAL ELÍAS GERMAN M.D.Performed By: #### CBC, BMP ####[address] [address] USAGFR/1.73 sq M.predicted MDRD (S/P/Bld) [Vol rate/Area]51.439 mL/min/{1.73_m2}NormalThe [facility] Physician GroupComment on above:Performed By: #### CBC, BMP ####[address] [address] USAGlucose [Mass/Vol]87 mg/aMWdlwsf64-490Eyh [facility] Physician GroupComment on above:Result Comment: Random Glucose Reference Range is dependent on time and content of last meal. Glucose of more than 200 mg/dL in a nonstressed, ambulatory subject supports the diagnosis of Diabetes Mellitus. ADA recommended reference rangePerformed By: #### CBC, BMP ####[address] [place] [address] USAPotassium [Moles/Vol] 3.8 mmol/LNormal3.5-5.1The [facility] Physician GroupComment on above:Performed By: #### CBC, BMP ####[address] [address] USASodium [Moles/Vol]139 mmol/RYcjsps410-782Tmr [facility] Physician GroupComment on above:Performed By: #### CBC, BMP ####[address] [address] USAUrea nitrogen [Mass/Vol]50 mg/dLHigh 7-e [facility] Physician GroupComment on above:Performed By: #### CBC, BMP ####[place] [id number] [facility] Complete Blood Count Auto Diffon 58-08-9337Ueyewaytp (Bld) [#/Vol]0.0 10*3/uL Normal0.0-0.2The [facility] Physician Trace Regional HospitalComment on above:Result Comment: PERFORMED BY:[address] [place]ACH[place], [place] [phone] MEDICAL DIRECTORCELESTE GERMAN M.D.Performed By: #### CBC, BMP ####[place] [id number] USABasophils/100 WBC (Bld)0.2 %Normal.The [facility] Physician GroupComment on above:Performed By: #### CBC, BMP ####[address] [address] USAEosinophils (Bld) [#/Vol]0.0 10*3/uLNormal 0.0-0.45The [facility] Physician Trace Regional HospitalComment on above:Performed By: #### CBC, BMP ####[address] [address] [place] Eosinophils/100 WBC (Bld)0.4 %Normal.The [facility] Physician GroupComment on above:Performed By: #### CBC, BMP ####[place] [id number] USAErythrocyte distribution width (RBC) [Ratio]15.4 % High12.0-14.8The [facility] Physician GroupComment on above:Performed By: #### CBC, BMP ####[place] [id number] USAHematocrit (Bld) [Volume fraction]31.4 %Low38.8-50.0The [facility] Physician GroupComment on above:Performed By: #### CBC, BMP ####[place] [id number] USAHemoglobin (Bld) [Mass/Vol]10.4 g/dL Low13.0-17.0The [facility] Physician GroupComment on above:Performed By: #### CBC, BMP ####[place] [id number] USALymphocytes (Bld) [#/Vol]0.4 10*3/uLLow1.00-4.8The [facility] Physician Group Comment on above:Performed By: #### CBC, BMP ####[place] [id number] USALymphocytes/100 WBC (Bld)7.5 %Normal. The [facility] Physician GroupComment on above:Performed By: #### CBC, BMP ####[place] [id number] USAMCH (RBC) [Entitic mass]31.1 jhOqvzjl68.5-35.2The [facility] Physician GroupComment on above:Performed By: #### CBC, BMP ####[place] [id number] USAMCV (RBC) [Entitic vol]93.6 uVQmnsiq66.5-101 The [facility] Physician GroupComment on above:Performed By: #### CBC, BMP ####[place] [id number] USAMean Corpuscular HGB Conc33.2 g/rZPhzagr26.5-35.6The [facility] Physician GroupComment on above:Performed By: #### CBC, BMP ####[place] [address] USAMonocytes (Bld) [#/Vol]0.6 10*3/uLNormal 0.0-0.8The [facility] Physician GroupComment on above:Performed By: #### CBC, BMP ####[place] [address] [place] Monocytes/100 WBC (Bld)12.5 %Normal.The [facility] Physician GroupComment on above:Performed By: #### CBC, BMP ####[place] [address] USANeutrophils (Bld) [#/Vol]4.0 10*3/uLNormal1.8-7.7The [facility] Physician GroupComment on above:Performed By: #### CBC, BMP ####[place] [address] [place] Neutrophils/100 WBC (Bld)79.4 %Normal.The [facility] Physician GroupComment on above:Performed By: #### CBC, BMP ####[place] [address] USANRBC%0.2 /100{WBC}Normal0-0.5The [facility] Physician GroupComment on above:Performed By: #### CBC, BMP ####[place] [id number] USAPlatelet mean volume (Bld) [Entitic vol]7.7 fLNormal6.6-10.1The [facility] Physician GroupComment on above: Performed By: #### CBC, BMP ####[place] [address] USAPlatelets (Bld) [#/Vol]180 10*3/jIOwciwo645-601Woi [facility] Physician Trace Regional HospitalComment on above:Performed By: #### CBC, BMP ####[address] [address] USARBC (Bld) [#/Vol]3.36 10*6/uLLow3.90-5.60The [facility] Physician Trace Regional HospitalComment on above:Performed By: #### CBC, BMP ####[place] [id number] USAWBC (Bld) [#/Vol]5.1 10*3/uLNormal4.1-10.5The [facility] Physician Trace Regional HospitalComment on above:Performed By: #### CBC, BMP ####[place] [id number] USAWhite Blood Count5.1 [CFU]/mLNormal4.1-10.5The [facility] Physician Trace Regional HospitalComment on above:Performed By: #### CBC, BMP ####[place] [id number] USAXR chest 1V portableon 67-51-3249FD chest 1V portableNormalThe [facility] Physician GroupAnti-Xa UF Heparinon 66-24-6506Jzbg- Xa UF Heparin0.62Mrkest9.30-0.70The [facility] Physician Trace Regional HospitalComment on above: Result Comment: Use the aPTT protocol when triglycerides are > 800 mg/dL, total bilirubin is > 20 mg/dL and/or patient has received a DOAC, Fondaparinux or LMWH within 72 hours AND baseline anti-Xa level is > 0.7 units/mLPERFORMED BY:[address] NELLYRAVINDERCOFFEYVILLE, [place] [phone] MEDICAL DIRECTORCELESTE GERMAN M.D.Performed By: #### UFHEP ####[address] [address] USAAnti-Xa UF Heparin0.46Hvcinf7.30-0.70The [facility] Physician Trace Regional HospitalComment on above:Result Comment: Use the aPTT protocol when triglycerides are > 800 mg/dL, total bilirubin is > 20 mg/dL and/or patient has received a DOAC, Fondaparinux or LMWH within 72 hours AND baseline anti-Xa level is > 0.7 units/mLPERFORMED BY:[facility] DOMINGUEZUNIONV[place], [place] [phone] MEDICAL DIRECTORCELESTE GERMAN M.D.Performed By: #### UFHEP ####[facility] [place] [address] USAArterial Blood Gason 89-63-8408SOA Base Excess-5.8 mmol/LLow-3.0-3.0The [facility] Physician GroupComment on above:Performed By: #### ABG ####Point of Care testing,ABG Frac Inspired O265 %NormalThe [facility] Physician GroupComment on above:Performed By: #### ABG ####Point of Care testing,ABG Oxygen Content7.0 mmol/LNormal6.6-9.7The [facility] Physician GroupComment on above:Performed By: #### ABG ####Point of Care testing,ABG Oxygen Lvpfwwttbf03.5 %Dtlzzw25.0-100.0 The [facility] Physician GroupComment on above:Performed By: #### ABG ####Point of Care testing,ABG DXV385.8 mm[Hg]Nrehme00.0-45.0The [facility] Comment on above:Performed By: #### ABG ####Point of Care testing,ABG PEEP5 NormalThe [facility] Physician GroupComment on above:Performed By: #### ABG ####Point of Care testing,ABG PH7.34Low7.35-7.45The [facility] Comment on above:Performed By: #### ABG ####Point of Care testing,ABG PO287.9 mm[Hg]Usfpkl27.0-100.0The [facility] Physician GroupComment on above:Performed By: #### ABG ####Point of Care testing,ABG TV500 mLNormalThe [facility] Physician GroupComment on above:Performed By: #### ABG ####Point of Care testing,CO2 [Moles/Vol]20.5 mmol/LLow23.0-27.0The [facility] Physician GroupComment on above: Performed By: #### ABG ####Point of Care testing,HCO3 (Bld) [Moles/Vol]19.4 mmol/LLow23.0-29.0The [facility] Physician GroupComment on above:Performed By: #### ABG ####Point of Care testing,Respiratory CriticalColumbia Miami Heart Institute Physician GroupComment on above:Result Comment: Critical Value called on: 08/02/2025 at 04:17PERFORMED BY:[address] [place], [place] [phone] MEDICAL DIRECTORCELESTE GERMAN M.D.Performed By: #### ABG ####Point of Care testing,Set Respiratory Rate16 NormalHca Florida Plantation Emergency Physician GroupComment on above:Performed By: #### ABG ####Point of Care testing,VBG Draw SiteLeft BrachialColumbia Miami Heart Institute Physician GroupComment on above:Performed By: #### ABG ####Point of Care testing,Ventilator ModeACColumbia Miami Heart Institute Physician GroupComment on above: Performed By: #### ABG ####Point of Care testing,Basic Metabolic Panelon 86-16-3342Ubbjy gap [Moles/Vol]12.0 mmol/LNormal6.0-15.0The [facility] Physician GroupComment on above:Performed By: #### BMP, CBC ####[place] [id number] USACalcium [Mass/Vol]8.6 mg/dLNormal 8.6-10.3The [facility] Physician GroupComment on above:Performed By: #### BMP, CBC ####[address] [address] [place] Chloride [Moles/Vol]100 mmol/KVhabrf10-902Nzb [facility] Physician GroupComment on above:Performed By: #### BMP, CBC ####[address] [address] USACO2 [Moles/Vol]28.3 mmol/IRitzky02.0-31.0The [facility] Physician GroupComment on above:Performed By: #### BMP, CBC ####[address] [address] [place] Creatinine [Mass/Vol]2.27 mg/dLHigh0.70-1.30The [facility] Physician GroupComment on above:Performed By: #### BMP, CBC ####[address] [address] USACreatinine Clr Calc Eoedprbw83.41NormTGH Spring Hill Physician GroupComment on above:Result Comment: PERFORMED BY:[address] [place], [place] [phone] MEDICAL DIRECTORCELESTE GERMAN M.D.Performed By: #### BMP, CBC ####[address] [address] USAGFR/1.73 sq M.predicted MDRD (S/P/Bld) [Vol rate/Area]31.037 mL/min/{1.73_m2}NormalThe [facility] Physician Trace Regional HospitalComment on above:Performed By: #### BMP, CBC ####[address] [address] USAGlucose [Mass/Vol]96 mg/hQFpvygv91-268Nwf [place] Physician Trace Regional HospitalComment on above: Result Comment: Random Glucose Reference Range is dependent on time and content of last meal. Glucose of more than 200 mg/dL in a nonstressed, ambulatory subject supports the diagnosis of Diabetes Mellitus. ADA recommended reference rangePerformed By: #### BMP, CBC ####[address] [address] USAPotassium [Moles/Vol]4.3 mmol/LNormal3.5-5.1The [facility] Physician GroupComment on above:Performed By: #### BMP, CBC ####[address] [address] USASodium [Moles/Vol]136 mmol/SRugivr122-427Mwv [facility] Physician GroupComment on above: Performed By: #### BMP, CBC ####[address] [address] USAUrea nitrogen [Mass/Vol]70 mg/dLHigh7-25The [facility] Physician GroupComment on above:Performed By: #### BMP, CBC ####[place] [id number] [facility] Complete Blood Count Auto Diffon 21-18-2647Sllfwhzlu (Bld) [#/Vol]0.0 10*3/uL Normal0.0-0.2The [facility] Physician GroupComment on above:Result Comment: PERFORMED BY:[address] [place], [place] [phone] MEDICAL DIRECTORCELESTE GERMAN M.D.Performed By: #### BMP, CBC ####[place] [id number] USABasophils/100 WBC (Bld)0.1 %Normal.The [facility] Physician GroupComment on above:Performed By: #### BMP, CBC ####[address] [address] USAEosinophils (Bld) [#/Vol]0.0 10*3/uLNormal 0.0-0.45The [facility] Physician GroupComment on above:Performed By: #### BMP, CBC ####[place] [id number] [facility] Eosinophils/100 WBC (Bld)0.1 %Normal.The [facility] Physician GroupComment on above:Performed By: #### BMP, CBC ####[address] [address] USAErythrocyte distribution width (RBC) [Ratio]15.4 % High12.0-14.8The [facility] Physician GroupComment on above:Performed By: #### BMP, CBC ####[place] [phone] USAHematocrit (Bld) [Volume fraction]36.1 %Low38.8-50.0The [facility] Physician GroupComment on above:Performed By: #### BMP, CBC ####[place] [address] USAHemoglobin (Bld) [Mass/Vol]11.7 g/dL Low13.0-17.0The [facility] Physician GroupComment on above:Performed By: #### BMP, CBC ####[place] [address] USALymphocytes (Bld) [#/Vol]0.4 10*3/uLLow1.00-4.8The [facility] Physician Group Comment on above:Performed By: #### BMP, CBC ####[place] [id number] USALymphocytes/100 WBC (Bld)6.9 %Normal. The [facility] Physician GroupComment on above:Performed By: #### BMP, CBC ####[place] [id number] [facility] HOSPITALMCH (RBC) [Entitic mass]30.3 yjBjlggr04.5-35.2The [facility] Physician GroupComment on above:Performed By: #### BMP, CBC ####[place] [id number] [facility]OSPITALMCV (RBC) [Entitic vol]93.6 mZDmrqmy58.5-101 The [facility] Physician GroupComment on above:Performed By: #### BMP, CBC ####[place] [phone] USAMean Corpuscular HGB Conc32.3 g/dLLow32.5-35.6The [facility] Physician GroupComment on above:Performed By: #### BMP, CBC ####[place] [phone] USAMonocytes (Bld) [#/Vol]0.7 10*3/uLNormal0.0-0.8The [facility] Physician GroupComment on above:Performed By: #### BMP, CBC ####[place] [phone] [place] Monocytes/100 WBC (Bld)11.9 %Normal.The [facility] Physician GroupComment on above:Performed By: #### BMP, CBC ####[place] [address] USANeutrophils (Bld) [#/Vol]4.9 10*3/uLNormal1.8-7.7The [facility] Physician GroupComment on above:Performed By: #### BMP, CBC ####[place] [address] [place] Neutrophils/100 WBC (Bld)81.0 %Normal.The [facility] Physician GroupComment on above:Performed By: #### BMP, CBC ####[place] [address] USANRBC%0.1 /100{WBC}Normal0-0.5The [facility] Physician GroupComment on above:Performed By: #### BMP, CBC ####[place] [address] USAPlatelet mean volume (Bld) [Entitic vol]7.8 fLNormal6.6-10.1The [facility] Physician GroupComment on above: Performed By: #### BMP, CBC ####[place] [address] USAPlatelets (Bld) [#/Vol]188 10*3/pWWwtpqi337-495Qre [facility] Physician GroupComment on above:Performed By: #### BMP, CBC ####[place] [address] USARBC (Bld) [#/Vol]3.86 10*6/uLLow3.90-5.60The [facility] Physician GroupComment on above:Performed By: #### BMP, CBC ####[place] [address] USAWBC (Bld) [#/Vol]6.1 10*3/uLNormal4.1-10.5The [facility] Physician GroupComment on above:Performed By: #### BMP, CBC ####[address] [place] [address] [facility]OSPITALWhite Blood Count6.1 [CFU]/mLNormal4.1-10.5The [facility] Physician Trace Regional HospitalComment on above:Performed By: #### BMP, CBC ####[address] [address] USAECH echo transthoracicon 61-98-4296ESO echo transthoracicNormTGH Spring [facility] Physician Trace Regional HospitalXR chest 1V portableon 13-97-2260KS chest 1V portableNoOhioHealth Mansfield HospitalAnti-Xa UF Heparinon 90-25-3338Vfyc-Xa UF Heparin0.21Low0.30-0.70The [facility] Medical CenterComment on above:Result Comment: Use the aPTT protocol when triglycerides are > 800 mg/dL, total bilirubin is > 20 mg/dL and/or patient has received a DOAC, Fondaparinux or LMWH within 72 hours AND baseline anti-Xa level is > 0.7 units/mLPERFORMED BY:[address] ANDREEJeremiWEST [place], [place] [phone] MEDICAL ELÍAS GERMAN M.D.Performed By: #### UFHEP ####[address] [address] USAAnti-Xa UF Heparin0.20Low0.30-0.70The [facility] Physician Trace Regional HospitalComment on above:Result Comment: Use the aPTT protocol when triglycerides are > 800 mg/dL, total bilirubin is > 20 mg/dL and/or patient has received a DOAC, Fondaparinux or LMWH within 72 hours AND baseline anti-Xa level is > 0.7 units/mLPERFORMED BY:[address] [place], [place] [phone] MEDICAL ELÍAS GERMAN M.D.Performed By: #### UFHEP ####[address] [address] USAAnti-Xa UF Heparin0.05Low0.30-0.70The [facility] Physician GroupComment on above:Result Comment: Use the aPTT protocol when triglycerides are > 800 mg/dL, total bilirubin is > 20 mg/dL and/or patient has received a DOAC, Fondaparinux or LMWH within 72 hours AND baseline anti-Xa level is > 0.7 units/mLPERFORMED BY:[facility] [place], [place] [phone] MEDICAL DIRECTORCELESTE GERMAN M.D.Performed By: #### UFHEP ####[facility] [place] [address] USAArterial Blood Gason 17-19-8959FQX Base Excess-6.6 mmol/LLow-3.0-3.0The [facility] Physician GroupComment on above:Performed By: #### ABG ####Point of Care testing,ABG Frac Inspired O245 %NormalThe [facility] Physician GroupComment on above:Performed By: #### ABG ####Point of Care testing,ABG Oxygen Content7.6 mmol/LNormal6.6-9.7The [facility] Physician GroupComment on above:Performed By: #### ABG ####Point of Care testing,ABG Oxygen Puyoprkeej71.6 %Ngrdxw98.0-100.0 The [facility] Physician GroupComment on above:Performed By: #### ABG ####Point of Care testing,ABG CIP192.5 mm[Hg]Ifvcal68.0-45.0The [facility] Comment on above:Performed By: #### ABG ####Point of Care testing,ABG PEEP5 NormalThe [facility] Physician GroupComment on above:Performed By: #### ABG ####Point of Care testing,ABG PH7.30Low7.35-7.45The [facility] Comment on above:Performed By: #### ABG ####Point of Care testing,ABG PO288.3 mm[Hg]Ewhjlh69.0-100.0The [facility] Physician GroupComment on above:Performed By: #### ABG ####Point of Care testing,ABG TV500 mLNormalThe [facility] Physician GroupComment on above:Performed By: #### ABG ####Point of Care testing,CO2 [Moles/Vol]20.6 mmol/LLow23.0-27.0The [facility] Physician GroupComment on above: Performed By: #### ABG ####Point of Care testing,HCO3 (Bld) [Moles/Vol]19.4 mmol/LLow23.0-29.0The [facility] Physician GroupComment on above:Performed By: #### ABG ####Point of Care testing,Respiratory CriticalColumbia Miami Heart Institute Physician GroupComment on above:Result Comment: Critical Value called on: 08/01/2025 at 05:05PERFORMED BY:[address] [place], [place] [phone] MEDICAL ELÍAS GERMAN M.D.Performed By: #### ABG ####Point of Care testing,Set Respiratory Rate16 NormalThe [facility] Physician GroupComment on above:Performed By: #### ABG ####Point of Care testing,VBG Draw SiteRight BrachialNoPending sale to [facility] Physician GroupComment on above:Performed By: #### ABG ####Point of Care testing,Ventilator ModeACColumbia Miami Heart Institute Physician GroupComment on above: Performed By: #### ABG ####Point of Care testing,B-Type Natriuretic Peptideon 46-23-1882Hnszdmkcwpa peptide B (Bld) [Mass/Vol]440.0 pg/mLHigh5-100The [facility] Physician GroupComment on above:Result Comment: PERFORMED BY:[address] [place], [place] [phone] MEDICAL ELÍAS GERMAN M.D.Performed By: #### BNP, [id number], LIPID, PT, BMP, LACTIC, CBC, PTT ####[address] [place] [address] USABasic Metabolic Panelon 26-02-3633Nztqf gap [Moles/Vol]11.8 mmol/LNormal6.0-15.0The [facility] Physician GroupComment on above:Order Comment: FASTING YPerformed By: #### BNP, [id number], LIPID, PT, BMP, LACTIC, CBC, PTT ####[place] [address] [place] [address] USACalcium [Mass/Vol]8.0 mg/dLLow8.6-10.3The [facility] Physician Group Comment on above:Order Comment: FASTING YPerformed By: #### BNP, [id number], LIPID, PT, BMP, LACTIC, CBC, PTT ####[address] [address] USAChloride [Moles/Vol]99 mmol/DMjsuxx88-473Ecu [facility] Physician GroupComment on above:Order Comment: FASTING YPerformed By: #### BNP, [id number], LIPID, PT, BMP, LACTIC, CBC, PTT ####[address] [address] USACO2 [Moles/Vol]27.6 mmol/L Kmrrfy85.0-31.0The [facility] Physician GroupComment on above:Order Comment: FASTING YPerformed By: #### BNP, [id number], LIPID, PT, BMP, LACTIC, CBC, PTT ####[address] [address] [place] Creatinine [Mass/Vol]2.82 mg/dLHigh0.70-1.30The [facility] Physician GroupComment on above:Order Comment: FASTING YPerformed By: #### BNP, [id number], LIPID, PT, BMP, LACTIC, CBC, PTT ####[address] [address] USACreatinine Clr Calc Kwamtiuj69.70NormalThe [facility] Physician GroupComment on above:Order Comment: FASTING YPerformed By: #### BNP, [id number], LIPID, PT, BMP, LACTIC, CBC, PTT ####[facility] [id number] [place] [address] USAGFR/1.73 sq M.predicted MDRD (S/P/Bld) [Vol rate/Area]23.923 mL/min/{1.73_m2}NormalThe [facility] Physician GroupComment on above:Order Comment: FASTING YPerformed By: #### BNP, [id number], LIPID, PT, BMP, LACTIC, CBC, PTT ####[address] [address] USAGlucose [Mass/Vol]95 mg/xKXcthlg82-436Igf [facility] Physician GroupComment on above:Order Comment: FASTING YResult Comment: Random Glucose Reference Range is dependent on time and content of last meal. Glucose of more than 200 mg/dL in a nonstressed, ambulatory subject supports the diagnosis of Diabetes Mellitus. ADA recommended reference rangePerformed By: #### BNP, [id number], LIPID, PT, BMP, LACTIC, CBC, PTT ####[address] [address] USAPotassium [Moles/Vol]4.4 mmol/LNormal3.5-5.1The [facility] Physician GroupComment on above:Order Comment: FASTING YPerformed By: #### BNP, [id number], LIPID, PT, BMP, LACTIC, CBC, PTT ####[place] [id number] USASodium [Moles/Vol]134 mmol/PWwr100-004Llj [facility] Physician GroupComment on above: Order Comment: FASTING YPerformed By: #### BNP, [id number], LIPID, PT, BMP, LACTIC, CBC, PTT ####[address] [address] USAUrea nitrogen [Mass/Vol]77 mg/dLHigh7-25The [facility] Physician Group Comment on above:Order Comment: FASTING YPerformed By: #### BNP, [id number], LIPID, PT, BMP, LACTIC, CBC, PTT ####[address] [address] USAComplete Blood Count Auto Diffon 77-51-9169Zfnhwmppj (Bld) [#/Vol]0.0 10*3/uLNormal0.0-0.2The [facility] Physician GroupComment on above:Result Comment: PERFORMED BY:[address] [place], [place] [phone] MEDICAL DIRECTORCELESTE GERMAN M.D.Performed By: #### BNP, [id number], LIPID, PT, BMP, LACTIC, CBC, PTT ####[address] Basophils/100 WBC (Bld)0.1 %Normal.The [facility] Physician GroupComment on above:Performed By: #### BNP, [id number], LIPID, PT, BMP, LACTIC, CBC, PTT ####[address] Eosinophils (Bld) [#/Vol]0.0 10*3/uLNormal0.0-0.45The [facility] Physician Group Comment on above:Performed By: #### BNP, [id number], LIPID, PT, BMP, LACTIC, CBC, PTT ####[address] Eosinophils/100 WBC (Bld)0.0 %Normal.The [facility] Physician GroupComment on above:Performed By: #### BNP, [id number], LIPID, PT, BMP, LACTIC, CBC, PTT ####[address] Erythrocyte distribution width (RBC) [Ratio]15.8 %High12.0-14.8The [facility] Physician GroupComment on above:Performed By: #### BNP, [id number], LIPID, PT, BMP, LACTIC, CBC, PTT ####[place] [address] USAHematocrit (Bld) [Volume fraction]37.9 %Low38.8-50.0 The [facility] Physician GroupComment on above:Performed By: #### BNP, [id number], LIPID, PT, BMP, LACTIC, CBC, PTT ####[place] [address] USAHemoglobin (Bld) [Mass/Vol]12.5 g/dLLow13.0-17.0The [facility] Physician GroupComment on above:Performed By: #### BNP, [id number], LIPID, PT, BMP, LACTIC, CBC, PTT ####[place] [address] USALymphocytes (Bld) [#/Vol]0.4 10*3/uLLow1.00-4.8The [facility] Physician GroupComment on above:Performed By: #### BNP, [id number], LIPID, PT, BMP, LACTIC, CBC, PTT ####[place] [address] USALymphocytes/100 WBC (Bld)9.8 %Normal.The [facility] Physician GroupComment on above:Performed By: #### BNP, [id number], LIPID, PT, BMP, LACTIC, CBC, PTT ####[address] (RBC) [Entitic mass]30.7 exVfoqtu07.5-35.2The [facility] Physician GroupComment on above:Performed By: #### BNP, [id number], LIPID, PT, BMP, LACTIC, CBC, PTT ####[address] (RBC) [Entitic vol]93.1 gVFoeehd65.5-101The [facility] Physician GroupComment on above:Performed By: #### BNP, [id number], LIPID, PT, BMP, LACTIC, CBC, PTT ####[place] [address] USAMean Corpuscular HGB Conc32.9 g/pUNtexsm24.5-35.6The [facility] Physician GroupComment on above:Performed By: #### BNP, [id number], LIPID, PT, BMP, LACTIC, CBC, PTT ####[place] [address] USAMonocytes (Bld) [#/Vol]0.3 10*3/uLNormal0.0-0.8The [facility] Physician GroupComment on above:Performed By: #### BNP, [id number], LIPID, PT, BMP, LACTIC, CBC, PTT ####[place] [id number] USAMonocytes/100 WBC (Bld)7.7 %Normal.The [facility] Physician GroupComment on above:Performed By: #### BNP, [id number], LIPID, PT, BMP, LACTIC, CBC, PTT ####[place] [address] USANeutrophils (Bld) [#/Vol]3.6 10*3/uLNormal1.8-7.7The [facility] Physician GroupComment on above:Performed By: #### BNP, [id number], LIPID, PT, BMP, LACTIC, CBC, PTT ####[place] [address] USANeutrophils/100 WBC (Bld)82.4 %Normal.The [facility] Physician GroupComment on above:Performed By: #### BNP, [id number], LIPID, PT, BMP, LACTIC, CBC, PTT ####[place] [address] USANRBC%0.0 /100{WBC}Normal0-0.5The [facility] Physician GroupComment on above:Performed By: #### BNP, [id number], LIPID, PT, BMP, LACTIC, CBC, PTT ####[place] [address] USAPlatelet mean volume (Bld) [Entitic vol]7.8 fLNormal6.6-10.1The [facility] Physician GroupComment on above:Performed By: #### BNP, [id number], LIPID, PT, BMP, LACTIC, CBC, PTT ####[place] [address] USAPlatelets (Bld) [#/Vol]194 10*3/qFUbcydd311-934Kxi [facility] Physician GroupComment on above:Performed By: #### BNP, [id number], LIPID, PT, BMP, LACTIC, CBC, PTT ####[place] [id number] USARBC (Bld) [#/Vol]4.07 10*6/uLNormal3.90-5.60The [facility] Physician GroupComment on above:Performed By: #### BNP, [id number], LIPID, PT, BMP, LACTIC, CBC, PTT ####[address] [address] USAWBC (Bld) [#/Vol]4.4 10*3/uLNormal4.1-10.5The [facility] Physician GroupComment on above:Performed By: #### BNP, [id number], LIPID, PT, BMP, LACTIC, CBC, PTT ####[place] [id number] USAWhite Blood Count4.4 [CFU]/mLNormal4.1-10.5The [facility] Physician GroupComment on above:Performed By: #### BNP, [id number], LIPID, PT, BMP, LACTIC, CBC, PTT ####[address] [address] USACreatine Kinaseon 64-52-1176AF [Catalytic activity/Vol]61 U/UGtjehf59-426Mak [facility] Physician GroupComment on above: Performed By: #### HS TROP, CK ####[address] [address] USACK [Catalytic activity/Vol]80 U/KCbkpyk07-016Asu [facility] Physician GroupComment on above:Performed By: #### CK, HS TROP ####[address] [address] USACK [Catalytic activity/Vol]103 U/UXraidd32-228Nst [facility] Physician GroupComment on above:Performed By: #### HS TROP, CK ####[address] [address] USACK [Catalytic activity/Vol]121 U/SKnndow71-522 The [facility] Physician GroupComment on above:Performed By: #### CK, HS TROP ####[place] [id number] USAECG 12 lead ECGon 30-99-3757BAZ 12 lead ECGColumbia Miami Heart Institute Physician Trace Regional HospitalGlucose Poct Glucometerson 43-04-3124Ltvvyzu6Ezf7: Cleaned MeterNoPending sale to [facility] Physician Trace Regional HospitalComment on above:Result Comment: PERFORMED BY:[address] [place], [place] [phone] MEDICAL DIRECTORCELESTE GERMAN M.D.Performed By: #### GLULS ####Point of Care testing, Glucose [Mass/Vol]87 mg/dLNoPending sale to [facility] Physician GroupComment on above: Result Comment: Random Glucose Reference Range is dependent on time and content of last meal. Glucose of more than 200 mg/dL in a nonstressed, ambulatory subject supports the diagnosis of Diabetes Mellitus.Performed By: #### GLULS ####Point of Care testing,Lactic Acidon 37-09-3193Wojscgn [Moles/Vol]1.6 mmol/L Normal0.5-1.9The [facility] Physician GroupComment on above:Result Comment: Lactic Acid reference range has been updated to 0.5 ? 1.9 mmol/L and the critical range of 2.0 or greater.PERFORMED BY:[address] [place], [place] [phone] MEDICAL ELÍAS GERMAN M.D.Performed By: #### BNP, [id number], LIPID, PT, BMP, LACTIC, CBC, PTT ####[facility] [address] [place] [address] USALactic Acid Reflexon 68-79-9000Ysjvtn Acid Reflex2.3 mmol/LOff scale high0.5-1.9The [facility] Physician GroupComment on above:Result Comment: Critical Result : Called to and read back by: IDANIA OCHOA at: 08/01/2025 00:53:29 by:[id number] Lactic Acid reference range has been updated to 0.5 ? 1.9 mmol/L and the critical range of 2.0or greater.PERFORMED BY:[address] [place]AGAWE[place], [place] [phone] MEDICAL ELÍAS GERMAN M.D.Performed By: #### LACTIC RFX ####[address] [address]FVWFmrlh Panelon 76-98-3956Hhkpxaeeffl [Mass/Vol]111 mg/yBXhl294-023Ehe [facility]ician Group Comment on above:Order Comment: FASTING YResult Comment: Chol less than 200 mg/dl low risk Chol 201-239 mg/dl borderline risk Chol 240 mg/dland greater high riskPerformed By: #### BNP, [id number], LIPID, PT, BMP, LACTIC, CBC, PTT ####[place] [id number] [facility] Cholesterol in HDL [Mass/Vol]38 mg/lLBbbmqp18-65Adu [facility]ician Group Comment on above:Order Comment: FASTING YResult Comment: HDL CHOL ATP-III CLASSIFICATION Cardiovascular Risk HDL > or equal to 60 mg/dL LOW HDL < 40 mg/dL HIGHPerformed By: #### BNP, [id number], LIPID, PT, BMP, LACTIC, CBC, PTT ####[address] [address] [facility] Cholesterol.total/Cholesterol in HDL [Mass ratio]2.9 {ratio}Normal<5.0The [facility] Physician GroupComment on above:Order Comment: FASTING YPerformed By: #### BNP, [id number], LIPID, PT, BMP, LACTIC, CBC, PTT ####[address] [address] USALDL Cholesterol,Cbvcxxmsgz88 mg/dLNormal0-100The [facility] Physician GroupComment on above:Order Comment: FASTING YResult Comment: LDL ATP III CLASSIFICATION LDL less than 100 mg/dL Optimal LDL 100-129 mg/dL Near or above optimal LDL 130-159 mg/dL Borderline high LDL 160-189 mg/dL High LDL greater than 189 mg/dL Very highPerformed By: #### BNP, [id number], LIPID, PT, BMP, LACTIC, CBC, PTT ####[address] [address] USATriglyceride w/Ynohdo333 mg/dL High0-149The [facility] Physician GroupComment on above:Order Comment: FASTING Y Result Comment: TRIG ATP III CLASSIFICATION TRIG less than 150 mg/dL Normal TRIG 150-199 mg/dL Borderline high TRIG 200-500 mg/dL High TRIG greater than 500 mg/dL Very high Standard traceable to the Center for Disease Conrtrol and Prevention (CDC) test method.Performed By: #### BNP, [id number], LIPID, PT, BMP, LACTIC, CBC, PTT ####[address] [place] [address] USAVLDL SWWYTTKNWZK08 mg/dLNormTGH Spring Hill Physician GroupComment on above:Order Comment: FASTING YPerformed By: #### BNP, [id number], LIPID, PT, BMP, LACTIC, CBC, PTT ####[address] [place] [address] [facility]ITALPartial Thromboplastin Timeon 60-78-3321gORJ Coag (Bld) [Time]34.1 s Lhxxme21.1-36.5The [facility] Physician GroupComment on above:Result Comment: A hematocrit value greater than 55% may lead to inaccurate results in coagulation testing. Patients having hematocrit values >55% require a special collection tube for coagulation studies. Please contact the laboratory at [phone] for redraw instructions.PERFORMED BY:[address] NELLYScarlettJeremiSHAR, [place] [phone] MEDICAL ELÍAS GERMAN M.D.Performed By: #### BNP, [id number], LIPID, PT, BMP, LACTIC, CBC, PTT ####[address] [place] [address] [facility] Prothrombin Time INRon 66-36-3756NNX Coag (PPP) [Relative time]1.0 {INR}Normal [facility] Physician GroupComment on above:Result Comment: INR Therapeutic Range A) Pre- and [...] valves: 3 - 4.5 Performed By: #### BNP, [id number], LIPID, PT, BMP, LACTIC, CBC, PTT ####[facility] [place] [address] USAPT Coag (PPP) [Time]11.5 sNormal9.0-12.9The [facility] Physician GroupComment on above: Result Comment: A hematocrit value greater than 55% may lead to inaccurate results in coagulation testing. Patients having hematocrit values >55% require a special collection tube for coagulation studies. Please contact the laboratory at [phone] for redraw instructions.Performed By: #### BNP, [id number], LIPID, PT, BMP, LACTIC, CBC, PTT ####[facility] [place] [address] USAThyroid Antibodies TPO+Tg Abon 08-01-2025 Antithyroglobulin Ab404.6Posuwc4.0-0.9[facility] Physician Trace Regional HospitalComment on above:Result Comment: Thyroglobulin Antibody measured by Edgar Ubaldo Methodology It should be noted that the presence of thyroglobulin antibodies may not be pathogenic nor diagnostic, especially at very low levels. The assay anode crew supervisor has found that four percent of individuals without evidence of t hyroid disease or autoimmunity will have positive TgAb levels up to 4 IU/mL. Performed at: [facility] [address] [id number] Data Base Design Analyst: Sidney Osman PhD, Phone: [phone] BY:[address] NELLYScarlettJeremiWEST LIB[place], [place] [phone] MEDICAL DIRECTORCELESTE GERMAN M.D.Performed By: #### THY AB ####[facility] ,Thyroid Peroxidase Yhssviidgm63Hghusz8-39Nfw [facility] Physician GroupComment on above:Performed By: #### THY AB ####[facility] , Treponema pallidum Ab(FTA-ABS)on 80-19-2412Tllxvfwsf pallidum Ab(FTA-ABS) Non-ReactiveNormalNon ReactiveThe [facility] Physician GroupComment on above: Result Comment: Performed at: - [facility] [address], [place], [place] [id number] Data Base Design Analyst: Sidney Osman PhD, Phone: [phone] BY:[address] [address] [place], [place] [phone] MEDICAL ELÍAS GERMAN M.D.Performed By: #### VITB1, FTA ####[facility] ,Troponin I High Sensitivityon 87-04-0625Ubzypshp I High Gloyyfdzbfx7778Cht scale [facility] Physician GroupComment on above:Result Comment: Critical Result : Called to and read back by: MANAN CHEEK at: 08/01/2025 21:08:16 by:[email or web address] The Troponin units of report have been changed to meet the Chest Pain Accreditation req uirement, element EC5.M1l2. Troponin units are changed from pg/ml to ng/L. Also, the decimal is removed and results are in whole numbers.PERFORMED BY:[address]IG[address] ABREUBER[place], [place] [phone] MEDICAL ELÍAS GERMAN M.D.Performed By: #### HS TROP, CK ####[address] [place] [address] [facility] Troponin I High Rqaddsjtovy3389Dek scale [facility]St[facility] Comment on above:Result Comment: Critical Result : Called to and read back by: BVE SAUCEDA at: 08/01/2025 10:52:10 by:[id number] The Troponin units of report have been changed to meet the Chest Pain Accreditation requirement, element EC5.M1l2. Troponin units are changed from pg/ml to ng/L. Also, the decimal is removed and results are in whole numbers.PERFORMED BY:[address] [place], [place] [phone] MEDICAL ELÍAS GERMAN M.D.Performed By: #### CK, HS TROP ####[address] [place] [address] USATroponin I High Hxyqghumnad0928Qbi scale high0-[address] [place] [address] Physician GroupComment on above: Result Comment: Critical Result : Called to and read back by: IDANIA OCHOA at: 08/01/2025 04:33:48 by:[id number] The Troponin units of report have been changed to meet the Chest Pain Accreditation requirement, element EC5.M1l2. Troponin units are changed from pg/ml to ng/L. Also, the decimal is removed andresults are in whole numbers.PERFORMED BY:[address]TAMIASHAR,[place] [phone] MEDICAL DIRECTORCELESTE GERMAN M.D.Performed By: #### HS TROP, CK ####[address] [address] USATroponin I High Lfqfxpfjgbh4860Fqq scale [facility]0-[facility] Trace Regional HospitalComment on above:Result Comment: Critical Result : Called to and read back by: IDANIA OCHOA at: 08/01/2025 00:53:08 by:[id number] The Troponin units of report have been changed to meet the Chest Pain Accreditation requirement, element EC5.M1l2. Troponin units are changed from pg/ml to ng/L. Also, the decimal is removed andresults are in whole numbers.PERFORMED BY:[address] [place] [phone] MEDICAL DIRECTORCELESTE GERMAN M.D.Performed By: #### CK, HS TROP ####[address] [address] USAUS renal BIon 40-04-2885BI renal BINormalThe [facility] Physician Group Vit. B12/Folate Profileon 07-44-5339Xwucrpqog (Vitamin B12) [Mass/Vol]435 pg/mL Rglvpe610-535Tjp [facility] Medical CenterComment on above:Order Comment: FASTING YPerformed By: #### BNP, [id number], LIPID, PT, BMP, LACTIC, CBC, PTT ####[address] [address] USAFolate 11.6 ng/mLNormal>5.9The [facility] Physician GroupComment on above:Order Comment: FASTING YResult Comment: Folate reference range: >5.9 ng/ml The WHO technical consultation on folate and vitamin b12 deficiencies has determined that folate concentrations less than 4 ng/ml are considered deficient.PERFORMED BY:[address] [place]UN[place], [place] [phone] MEDICAL ELÍAS GERMAN M.D.Performed By: #### BNP, [id number], LIPID, PT, BMP, LACTIC, CBC, PTT ####[address] [address] USAVitamin B1 (Thiamine) Bloodon 56-30-8592Gjfrwbo B1 (Thiamine) Blood84.0Snqcoq22.5-200.0The [facility] Physician GroupComment on above:Result Comment: This test was developed and its performance characteristics determined by [facility]. It has not been cleared or approved by the Food and Drug Administration. Performed at: [facility] [address] [id number] Data Base Design Analyst: Gareth Alford MD, Phone: [phone] BY:[address] [address] LIZARRAGASHARUNIONVILLE, [place] [phone] MEDICAL ELÍAS GERMAN M.D.Performed By: #### VITB1, FTA ####[facility] ,XR chest 1V portableon 08-01-2025 XR chest 1V portableNormTGH [facility] Physician LhnqcC2L with Estimated Average Gluon 92-35-2928Wbuklfo [Mass/Vol]117 mg/dLNormTGH [facility] Physician Trace Regional HospitalComment on above:Result Comment: PERFORMED BY:[address] LIZARRAGASHARUNIONV[place]LE, [place] [phone] MEDICAL ELÍAS GERMAN M.D.Performed By: #### A1C WTH eA ####[address] [place], [place] [address]UBINcH1h (Bld) [Mass fraction]5.7 %High4.3-5.6The [facility] Physician GroupComment on above:Result Comment: Increased risk for diabetes: 5.7 - 6.4 diabetes: >6.4 glycemic control for adults with diabetes: <7.0Performed By: #### A1C WTH eA ####[address] [address]MCKKpue-Fm UF Heparinon 96-21-5627Koep-Xa UF Heparin<0.04Low0.30-0.70The [facility] Comment on above:Result Comment: Use the aPTT protocol when triglycerides are > 800 mg/dL, total bilirubin is > 20 mg/dL and/or patient has received a DOAC, Fondaparinux or LMWH within 72 hours AND baseline anti-Xa level is > 0.7 units/mLPERFORMED BY:[address] NELLYScarlettJeremiWEST [place], [place] [phone] MEDICAL DIRECTORCELESTE GERMAN M.D.Performed By: #### UFHEP ####[address] [address] USAAnti-Xa UF Heparin0.05Low0.30-0.70The [facility] Physician Trace Regional HospitalComment on above:Result Comment: Use the aPTT protocol when triglycerides are > 800 mg/dL, total bilirubin is > 20 mg/dL and/or patient has received a DOAC, Fondaparinux or LMWH within 72 hours AND baseline anti-Xa level is > 0.7 units/mLPERFORMED BY:[address] [place], [place] [phone] MEDICAL ELÍAS GERMAN M.D.Performed By: #### PTT, SCAN CBC, UFHEP, PT, CUBLD, BNP, MG, LACTIC, BMP, HEPATIC ####[address] [address] [facility] Arterial Blood Gason 65-13-7501JTF Base Excess-2.7 mmol/LNormal-3.0-3.0The [facility] Physician Trace Regional HospitalComment on above:Performed By: #### ABG ####Point of Care testing,ABG Frac Inspired O250 %NormalThe [facility] Physician GroupComment on above:Performed By: #### ABG ####Point of Care testing,ABG Oxygen Content8.2 mmol/LNormal6.6-9.7The [facility] Physician GroupComment on above:Performed By: #### ABG ####Point of Care testing,ABG Oxygen Rpthrffudw60.9 %Low95.0-100.0The [facility] Physician GroupComment on above:Performed By: #### ABG ####Point of Care testing,ABG HED873.3 mm[Hg]Off scale high35.0-45.0The [facility] Physician GroupComment on above:Performed By: #### ABG ####Point of Care testing,ABG PEEP5 NormalThe [facility] Physician GroupComment on above:Performed By: #### ABG ####Point of Care testing,ABG PH7.28Low7.35-7.45The [facility]ician Group Comment on above:Performed By: #### ABG ####Point of Care testing,ABG PO272.1 mm[Hg]Low80.0-100.0The [facility] Physician GroupComment on above:Performed By: #### ABG ####Point of Care testing,ABG TV500 mLNormalThe [facility] Physician GroupComment on above:Performed By: #### ABG ####Point of Care testing,CO2 [Moles/Vol]26.5 mmol/GLqygpl72.0-27.0The [facility] Physician GroupComment on above:Performed By: #### ABG ####Point of Care testing,HCO3 (Bld) [Moles/Vol] 24.8 mmol/UZadetb63.0-29.0The [facility] Physician GroupComment on above: Performed By: #### ABG ####Point of Care testing,Respiratory CriticalNormalThe [facility] Physician GroupComment on above:Result Comment: Critical Value called on: 07/31/2025 at 21:22PERFORMED BY:[address] [place] [place], [place] [phone] MEDICAL DIRECTORCELESTE GERMAN M.D.Performed By: #### ABG ####Point of Care testing,Set Respiratory Rate16 NormalThe [facility] Physician GroupComment on above:Performed By: #### ABG ####Point of Care testing,VBG Draw SiteRight RadialColumbia Miami Heart Institute Physician GroupComment on above:Performed By: #### ABG ####Point of Care testing, Ventilator ModeACColumbia Miami Heart Institute Physician GroupComment on above:Performed By: #### ABG ####Point of Care testing,B-Type Natriuretic Peptideon 07-31-2025 Natriuretic peptide B (Bld) [Mass/Vol]695.0 pg/mLHigh5-100The [facility] Physician GroupComment on above:Result Comment: PERFORMED BY:[address] [place], [place] [phone] MEDICAL ELÍAS GERMAN M.D.Performed By: #### PTT, SCAN CBC, UFHEP, PT, CUBLD, BNP, MG, LACTIC, BMP, HEPATIC ####[address] [address] USABasic Metabolic Panelon 37-86-2912Noivn gap [Moles/Vol]12.2 mmol/LNormal6.0-15.0The [facility] Physician GroupComment on above:Performed By: #### PTT, SCAN CBC, UFHEP, PT, CUBLD, BNP, MG, LACTIC, BMP, HEPATIC ####[address] [address] USACalcium [Mass/Vol]8.4 mg/dLLow8.6-10.3The [facility] Physician GroupComment on above:Performed By: #### PTT, SCAN CBC, UFHEP, PT, CUBLD, BNP, MG, LACTIC, BMP, HEPATIC ####[address] USAChloride [Moles/Vol]93 mmol/XCjx57-806Jck [facility] Physician GroupComment on above:Performed By: #### PTT, SCAN CBC, UFHEP, PT, CUBLD, BNP, MG, LACTIC, BMP, HEPATIC ####[address] [place] [address] USACO2 [Moles/Vol]31.2 mmol/LHigh21.0-31.0The [facility] Physician GroupComment on above:Performed By: #### PTT, SCAN CBC, UFHEP, PT, CUBLD, BNP, MG, LACTIC, BMP, HEPATIC ####[place] [address] USACreatinine [Mass/Vol]3.19 mg/dLHigh0.70-1.30The [facility] Physician GroupComment on above:Performed By: #### PTT, SCAN CBC, UFHEP, PT, CUBLD, BNP, MG, LACTIC, BMP, HEPATIC ####[place] [address] USACreatinine Clr Calc Fvtdadco53.17NormalThe [facility] Physician GroupComment on above:Performed By: #### PTT, SCAN CBC, UFHEP, PT, CUBLD, BNP, MG, LACTIC, BMP, HEPATIC ####[place] [address] USAGFR/1.73 sq M.predicted MDRD (S/P/Bld) [Vol rate/Area]20.633 mL/min/{1.73_m2}NormalThe [facility] Physician Trace Regional HospitalComment on above:Performed By: #### PTT, SCAN CBC, UFHEP, PT, CUBLD, BNP, MG, LACTIC, BMP, HEPATIC ####[place] [address] USAGlucose [Mass/Vol]107 mg/hSYxuw06-725Oar [facility] Physician GroupComment on above:Result Comment: Random Glucose Reference Range is dependent on time and content of last meal. Glucose of more than 200 mg/dL in a nonstressed, ambulatory subject supports the diagnosis of Diabetes Mellitus. ADA recommended reference rangePerformed By: #### PTT, SCAN CBC, UFHEP, PT, CUBLD, BNP, MG, LACTIC, BMP, HEPATIC ####[place] [address] USAPotassium [Moles/Vol]4.4 mmol/LNormal3.5-5.1The [facility] Physician GroupComment on above:Performed By: #### PTT, SCAN CBC, UFHEP, PT, CUBLD, BNP, MG, LACTIC, BMP, HEPATIC ####[address] [address] USASodium [Moles/Vol]132 mmol/APrf165-669 The [facility] Physician GroupComment on above:Performed By: #### PTT, SCAN CBC, UFHEP, PT, CUBLD, BNP, MG, LACTIC, BMP, HEPATIC ####[address] [address] USAUrea nitrogen [Mass/Vol]79 mg/dLHigh 7-e [facility] Physician GroupComment on above:Performed By: #### PTT, SCAN CBC, UFHEP, PT, CUBLD, BNP, MG, LACTIC, BMP, HEPATIC ####[address] [address] USABlood Cultureon 07-31-2025 Bacteria identified Cx Nom (Bld)NO GROWTH 5 DAYS PERFORMED BY: [place] [address] PATHOLOGIST AWARD MACHINE OPERATOR CELESTE GERMAN M.D.NormalThe [facility] Physician GroupComment on above: Performed By: #### PTT, SCAN CBC, UFHEP, PT, CUBLD, BNP, MG, LACTIC, BMP, HEPATIC ####[address] [address] USABacteria identified Cx Nom (Bld)NO GROWTH 5 DAYS PERFORMED BY: [place] [address] PATHOLOGIST AWARD MACHINE OPERATOR CELESTE GERMAN M.D.NormalHca Florida Plantation Emergency Physician GroupComment on above: Performed By: #### PTT, SCAN CBC, UFHEP, PT, CUBLD, BNP, MG, LACTIC, BMP, HEPATIC ####[address] USACreatine Kinaseon 24-48-5693VN [Catalytic activity/Vol]151 U/FVpkdpu07-678Hwk [facility] Physician GroupComment on above:Performed By: #### CK, HS TROP ####[address] [address] [place] Dipstick and Microscopicon 82-38-8041Zwnwausren (U)CloudyCritically abnormal ClearThe [facility] Physician GroupComment on above:Order Comment: Name Collection Type:: Ramirez CatheterPerformed By: #### ADDONUAPLUS ####[address] [address] USABacteria,UrineRare NormalNone SeenThe [facility] Physician GroupComment on above:Order Comment: Name Collection Type:: Ramirez CatheterPerformed By: #### ADDONUAPLUS ####[address] [address] USABilirubin,Urine NegativeNormalNegativeThe [facility] Physician GroupComment on above:Order Comment: Name Collection Type:: Ramirez CatheterPerformed By: #### ADDONUAPLUS ####[address] [address] USAColor (U)YellowNormalYellowThe [facility] Physician GroupComment on above:Order Comment: Name Collection Type:: Ramirez CatheterPerformed By: #### ADDONUAPLUS ####[address] [address] USAGlucose Ql (U)NormalNormalNormalThe [facility] Physician GroupComment on above:Order Comment: Name Collection Type:: Ramirez CatheterPerformed By: #### ADDONUAPLUS ####[address] [address] [place] Granular Casts, Urine5-9NormalNone SeenThe [facility] Physician GroupComment on above:Order Comment: Name Collection Type:: Ramirez CatheterPerformed By: #### ADDONUAPLUS ####[address] [address] USAHyaline Casts,Xsqiz1-32Scqpto0-4Owd [facility] Physician GroupComment on above:Order Comment: Name Collection Type:: Ramirez CatheterPerformed By: #### ADDONUAPLUS ####[address] [place] [address] USAKetones Ql (U)NegativeNormalNegativeThe [facility] Physician Group Comment on above:Order Comment: Name Collection Type:: Ramirez CatheterPerformed By: #### ADDONUAPLUS ####[address] [address] USALeukocyte esterase Test strip Ql (U)NegativeNormal NegativeThe [facility] Physician GroupComment on above:Order Comment: Name Collection Type:: Ramirez CatheterPerformed By: #### ADDONUAPLUS ####[address] [address] USAMucus,UrineRareNormal The [facility] Physician GroupComment on above:Order Comment: Name Collection Type:: Ramirez CatheterResult Comment: PERFORMED BY:[address] [address] [address] [place], [place] [phone] MEDICAL ELÍAS GERMAN M.D.Performed By: #### ADDONUAPLUS ####[address] [address] USANitrite,UrineNegative NormalNegativeThe [facility] Physician GroupComment on above:Order Comment: Name Collection Type:: Ramirez CatheterPerformed By: #### ADDONUAPLUS ####[address] [address] USAOccult Blood,Urine2+ NormalNegativeThe [facility] Physician GroupComment on above:Order Comment: Name Collection Type:: Ramirez CatheterResult Comment: PERFORMED BY:[address] [address] [place] [place], [place] [phone] MEDICAL ELÍAS GERMAN M.D.Performed By: #### ADDONUAPLUS ####[address] [address] USApH (U)5.5 [pH]Normal 5.0-9.0The [facility] Physician GroupComment on above:Order Comment: Name Collection Type:: Ramirez CatheterPerformed By: #### ADDONUAPLUS ####[address] [address] USAProtein (U) [Mass/Vol]50 mg/dLNormalNegativeThe [facility] Physician GroupComment on above: Order Comment: Name Collection Type:: Ramirez CatheterPerformed By: #### ADDONUAPLUS ####[address] [address] USARBC,Aqggf08-62Zucwkl4-6Ucv [facility] Physician GroupComment on above: Order Comment: Name Collection Type:: Ramirez CatheterPerformed By: #### ADDONUAPLUS ####[address] [address] USASpecificy Watkins,Urine1.812Rdcteg7.001-1.030The [facility] Physician GroupComment on above:Order Comment: Name Collection Type:: Ramirez Catheter Performed By: #### ADDONUAPLUS ####[address] [address] USASquamous Epithelial Cell,Txzcz8-9Mhgucd9-0Ait [facility] Physician GroupComment on above:Order Comment: Name Collection Type:: Ramirez CatheterPerformed By: #### ADDONUAPLUS ####[address] [address] USAUrobilinogen,UrineNormalNormalNormal [facility] Physician GroupComment on above:Order Comment: Name Collection Type:: Ramirez CatheterPerformed By: #### ADDONUAPLUS ####[address] [address] USAWBC,Cxhar8-1Jjjncj8-6Sbq [facility] Physician GroupComment on above:Order Comment: Name Collection Type:: Ramirez CatheterPerformed By: #### ADDONUAPLUS ####[address] [address] USADrug Screen,Urineon 07-31-2025 Amphetamine Screen,UrinePositiveNormalNegativeThe [facility] Comment on above:Performed By: #### URDS ####[address] [address] USABarbiturate Screen,UrineNegativeNormalNegative The [facility] Physician GroupComment on above:Performed By: #### URDS ####[address] [address] [place] Benzodiazepines Screen,UrinePositiveNormalNegativeThe [facility] Comment on above:Performed By: #### URDS ####[place] [id number] USACannabinoid Screen,UrineNegativeNormalNegative The [facility] Physician GroupComment on above:Result Comment: These are unconfirmed results and should not be used for legal purposes. Drug Cut-Off Concentration: AMPH 1000 ng/mL BHASKAR 200 ng/mL RIKKI 200 ng/mL COCM 300 ng/mL OP 300 ng/mL PCP 25 ng/mL THC 20 ng/mLPERFORMED BY:[address] NELLYScarlettJeremiWEST [place], [place] [phone] MEDICAL DIRECTORCELESTE GREMAN M.D.Performed By: #### URDS ####[id number] USACocaine Screen,UrineNegative NormalNegativeThe [facility] Physician Trace Regional HospitalComment on above:Performed By: #### URDS ####[address] [place] Opiate Screen,UrineNegativeNormalNegativeThe [facility] Physician GroupComment on above:Performed By: #### URDS ####[place] [id number] USAPhencyclidine Screen,UrineNegativeNormalNegativeThe [facility] Physician GroupComment on above:Performed By: #### URDS ####[place] [address] USAFree T4 (Free Thyroxine)on 74-26-7462Uodq T4 [Mass/Vol]0.40 ng/dLLow0.61-1.12The [facility] Physician GroupComment on above:Performed By: #### TSH3, T4F, T4T ####[place] [id number] USAHepatic Panelon 93-43-1262Ursmrkl [Mass/Vol]3.7 g/dLNormal3.5-5.7The [facility] Comment on above:Performed By: #### PTT, SCAN CBC, UFHEP, PT, CUBLD, BNP, MG, LACTIC, BMP, HEPATIC ####[place] [address] USAAlbumin/Globulin [Mass ratio]1.4 {ratio}NormalThe [facility] Physician GroupComment on above:Performed By: #### PTT, SCAN CBC, UFHEP, PT, CUBLD, BNP, MG, LACTIC, BMP, HEPATIC ####[place] [id number] USAALP [Catalytic activity/Vol]74 U/L Scofet63-852Rid [facility] Physician Trace Regional HospitalComment on above:Performed By: #### PTT, SCAN CBC, UFHEP, PT, CUBLD, BNP, MG, LACTIC, BMP, HEPATIC ####[place] [id number] USAALT [Catalytic activity/Vol]16 U/LNormal7-52The [facility] Physician Trace Regional HospitalComment on above: Performed By: #### PTT, SCAN CBC, UFHEP, PT, CUBLD, BNP, MG, LACTIC, BMP, HEPATIC ####[place] [id number] USAAST [Catalytic activity/Vol]26 U/APfpppw38-19Oop [facility] Comment on above:Performed By: #### PTT, SCAN CBC, UFHEP, PT, CUBLD, BNP, MG, LACTIC, BMP, HEPATIC ####[place] [id number] USABilirubin [Mass/Vol]1.1 mg/dLHigh0.3-1.0The [facility] Physician GroupComment on above:Performed By: #### PTT, SCAN CBC, UFHEP, PT, CUBLD, BNP, MG, LACTIC, BMP, HEPATIC ####[place] [id number] USABilirubin,Indirect0.8 mg/dLNormalThe [facility] Physician GroupComment on above:Performed By: #### PTT, SCAN CBC, UFHEP, PT, CUBLD, BNP, MG, LACTIC, BMP, HEPATIC ####[address] [place] [id number] USABilirubin.indirect [Mass/Vol]0.30 mg/dLHigh0.03-0.18The [facility] Physician GroupComment on above:Performed By: #### PTT, SCAN CBC, UFHEP, PT, CUBLD, BNP, MG, LACTIC, BMP, HEPATIC ####[place] [id number] [place] Globulin (S) [Mass/Vol]2.7 g/dLNormalThe [facility] Physician GroupComment on above:Performed By: #### PTT, SCAN CBC, UFHEP, PT, CUBLD, BNP, MG, LACTIC, BMP, HEPATIC ####[place] [address] USAProtein [Mass/Vol]6.4 g/dLNormal6.4-8.9The [facility] Physician GroupComment on above:Performed By: #### PTT, SCAN CBC, UFHEP, PT, CUBLD, BNP, MG, LACTIC, BMP, HEPATIC ####[place] [id number] USALactic Acidon 23-25-2956Jgbrugn [Moles/Vol]2.3 mmol/LOff scale high 0.5-1.9The [facility] Physician [facility] Regional HospitalComment on above:Result Comment: Critical Result : Called to and read back by: IDANIA OCHOA at: 07/31/2025 21:24:20 by:LFM Lactic Acid reference range has been updated to 0.5 ? 1.9 mmol/L and the critical range of 2.0 orgreater.PERFORMED BY:[address] [place], [place] [phone] MEDICAL ELÍSA GERMAN M.D.Performed By: #### PTT, SCAN CBC, UFHEP, PT, CUBLD, BNP, MG, LACTIC, BMP, HEPATIC ####[place] [id number] USALevetiracetam (Keppra)on 78-27-9591dgoXDUAKgnxlq [Mass/Vol]9.2 ug/cHPyvpjd14.0-40.0The [facility] Physician GroupComment on above: Result Comment: Performed at: [facility] [address] [id number] LabDirector: Gareth Alford MD, Phone: [phone] BY:[address] [place]UN[place], [place] [phone] MEDICAL ELÍAS GERMAN M.D.Performed By: #### LEV ####[facility] ,Magnesiumon 03-21-4541Oxaskgcvp [Mass/Vol]2.3 mg/dLNormal1.9-2.7The [facility] Physician GroupComment on above: Result Comment: PERFORMED BY:[place] [address] [address] [place], [place] [phone] MEDICAL ELÍAS GERMAN M.D.Performed By: #### PTT, SCAN CBC, UFHEP, PT, CUBLD, BNP, MG, LACTIC, BMP, HEPATIC ####[place] [address] [place] [address] USAPartial Thromboplastin Timeon 40-90-1178yVCN Coag (Bld) [Time]30.6 sNormal 25.1-36.5The [facility] Physician GroupComment on above:Result Comment: A hematocrit value greater than 55% may lead to inaccurate results in coagulation testing. Patients having hematocrit values >55% require a special collection tube for coagulation studies. Please contact the laboratory at [phone] for redraw instructions.Performed By: #### PTT, SCAN CBC, UFHEP, PT, CUBLD, BNP, MG, LACTIC, BMP, HEPATIC ####[address] [address] USAProthrombin Time INRon 86-93-1053BXS Coag (PPP) [Relative time]0.9 {INR}NormalThe [facility] Physician GroupComment on above: Result Comment: INR Therapeutic Range [...] patients with mechanical heart valves: 3 - 4.5Performed By: #### PTT, SCAN CBC, UFHEP, PT, CUBLD, BNP, MG, LACTIC, BMP, HEPATIC ####[place] [address] [place] [id number] USAPT Coag (PPP) [Time]10.6 sNormal9.0-12.9The [facility] Physician GroupComment on above:Result Comment: A hematocrit value greater than 55% may lead to inaccurate results in coagulation testing. Patients having hematocrit values >55% require a special collection tube for coagulation studies. Please contact the laboratory at [phone] for redraw instructions. Performed By: #### PTT, SCAN CBC, UFHEP, PT, CUBLD, BNP, MG, LACTIC, BMP, HEPATIC ####[address] [address] USAScan and CBCon 42-19-4044Gsfudnbwnqdk Ql (Bld)SlightNormalThe [facility] Physician GroupComment on above:Performed By: #### PTT, SCAN CBC, UFHEP, PT, CUBLD, BNP, MG, LACTIC, BMP, HEPATIC ####[address] [address] USABasophils (Bld) [#/Vol]0.0 10*3/uLNormal 0.0-0.2The [facility] Medical CenterComment on above:Performed By: #### PTT, SCAN CBC, UFHEP, PT, CUBLD, BNP, MG, LACTIC, BMP, HEPATIC ####[address] [address] USABasophils/100 WBC (Bld)0.2 % Normal.The [facility] Physician GroupComment on above:Performed By: #### PTT, SCAN CBC, UFHEP, PT, CUBLD, BNP, MG, LACTIC, BMP, HEPATIC ####[place] [address] USAEosinophils (Bld) [#/Vol]0.0 10*3/uLNormal0.0-0.45The [facility] Physician GroupComment on above:Performed By: #### PTT, SCAN CBC, UFHEP, PT, CUBLD, BNP, MG, LACTIC, BMP, HEPATIC ####[place] [address] [place] Eosinophils/100 WBC (Bld)0.1 %Normal.The [facility] Physician GroupComment on above:Performed By: #### PTT, SCAN CBC, UFHEP, PT, CUBLD, BNP, MG, LACTIC, BMP, HEPATIC ####[place] [address] USAErythrocyte distribution width (RBC) [Ratio]15.6 %High12.0-14.8The [facility] Physician GroupComment on above:Performed By: #### PTT, SCAN CBC, UFHEP, PT, CUBLD, BNP, MG, LACTIC, BMP, HEPATIC ####[place] [address] USAHematocrit (Bld) [Volume fraction]43.4 %Normal 38.8-50.0The [facility] Physician GroupComment on above:Performed By: #### PTT, SCAN CBC, UFHEP, PT, CUBLD, BNP, MG, LACTIC, BMP, HEPATIC ####[place] [address] USAHemoglobin (Bld) [Mass/Vol] 14.1 g/kNWeebxx53.0-17.0The [facility] Physician GroupComment on above:Performed By: #### PTT, SCAN CBC, UFHEP, PT, CUBLD, BNP, MG, LACTIC, BMP, HEPATIC ####[place] [address] [place] Lymphocytes (Bld) [#/Vol]0.3 10*3/uLLow1.00-4.8The [facility] Physician Group Comment on above:Performed By: #### PTT, SCAN CBC, UFHEP, PT, CUBLD, BNP, MG, LACTIC, BMP, HEPATIC ####[address] StreetLymphocytes/100 WBC (Bld)8.0 %Normal.The [facility] Physician GroupComment on above:Performed By: #### PTT, SCAN CBC, UFHEP, PT, CUBLD, BNP, MG, LACTIC, BMP, HEPATIC ####[address]H (RBC) [Entitic mass]30.7 ynAikcgz64.5-35.2 The [facility] Physician GroupComment on above:Performed By: #### PTT, SCAN CBC, UFHEP, PT, CUBLD, BNP, MG, LACTIC, BMP, HEPATIC ####[address]V (RBC) [Entitic vol]94.3 fLNormal 83.5-101The [facility] Physician GroupComment on above:Performed By: #### PTT, SCAN CBC, UFHEP, PT, CUBLD, BNP, MG, LACTIC, BMP, HEPATIC ####[address]Mean Corpuscular HGB Conc32.5 g/kSJswkau34.5-35.6The [facility] Physician GroupComment on above:Performed By: #### PTT, SCAN CBC, UFHEP, PT, CUBLD, BNP, MG, LACTIC, BMP, HEPATIC ####[address] MicrocytosisSlightNormalThe [facility] Physician GroupComment on above:Performed By: #### PTT, SCAN CBC, UFHEP, PT, CUBLD, BNP, MG, LACTIC, BMP, HEPATIC ####[address] Monocytes (Bld) [#/Vol]0.3 10*3/uLNormal0.0-0.8The [facility] Physician Group Comment on above:Performed By: #### PTT, SCAN CBC, UFHEP, PT, CUBLD, BNP, MG, LACTIC, BMP, HEPATIC ####[place] [address] USAMonocytes/100 WBC (Bld)7.4 %Normal.The [facility] Physician GroupComment on above:Performed By: #### PTT, SCAN CBC, UFHEP, PT, CUBLD, BNP, MG, LACTIC, BMP, HEPATIC ####[place] [address] USANeutrophils (Bld) [#/Vol]3.5 10*3/uLNormal 1.8-7.7The [facility] Physician GroupComment on above:Performed By: #### PTT, SCAN CBC, UFHEP, PT, CUBLD, BNP, MG, LACTIC, BMP, HEPATIC ####[place] [address] USANeutrophils/100 WBC (Bld)84.3 %Normal.The [facility] Physician GroupComment on above:Performed By: #### PTT, SCAN CBC, UFHEP, PT, CUBLD, BNP, MG, LACTIC, BMP, HEPATIC ####[place] [address] USANRBC%0.6 /100{WBC}High0-0.5 The [facility] Physician GroupComment on above:Performed By: #### PTT, SCAN CBC, UFHEP, PT, CUBLD, BNP, MG, LACTIC, BMP, HEPATIC ####[place] [address] USAPlatelet EstimateNormalNormalNormalThe [facility] Physician GroupComment on above:Performed By: #### PTT, SCAN CBC, UFHEP, PT, CUBLD, BNP, MG, LACTIC, BMP, HEPATIC ####[place] [address] USAPlatelet mean volume (Bld) [Entitic vol]7.6 fLNormal6.6-10.1The [facility] Physician GroupComment on above:Performed By: #### PTT, SCAN CBC, UFHEP, PT, CUBLD, BNP, MG, LACTIC, BMP, HEPATIC ####[address] [address] [place] Platelet MorphologyNormalNormalColumbia Miami [facility] Institute Physician GroupComment on above:Result Comment: PERFORMED BY:[address] [place], [place] [phone] MEDICAL ELÍAS GERMAN M.D.Performed By: #### PTT, SCAN CBC, UFHEP, PT, CUBLD, BNP, MG, LACTIC, BMP, HEPATIC ####[address] [address] USAPlatelets (Bld) [#/Vol]210 10*3/iYIpxztp839-744Viw [facility] Physician Group Comment on above:Performed By: #### PTT, SCAN CBC, UFHEP, PT, CUBLD, BNP, MG, LACTIC, BMP, HEPATIC ####[place] [id number] USAPolychromasiaSlightColumbia Miami Heart Institute Physician GroupComment on above:Performed By: #### PTT, SCAN CBC, UFHEP, PT, CUBLD, BNP, MG, LACTIC, BMP, HEPATIC ####[place] [id number] USARBC (Bld) [#/Vol]4.60 10*6/uLNormal3.90-5.60The [facility] Physician GroupComment on above:Performed By: #### PTT, SCAN CBC, UFHEP, PT, CUBLD, BNP, MG, LACTIC, BMP, HEPATIC ####[place] [id number] USAWBC (Bld) [#/Vol]4.2 10*3/uLNormal 4.1-10.5The [facility] Physician GroupComment on above:Performed By: #### PTT, SCAN CBC, UFHEP, PT, CUBLD, BNP, MG, LACTIC, BMP, HEPATIC ####[place] [id number] USAWhite Blood Count4.2 [CFU]/mL Normal4.1-10.5The [facility] Physician GroupComment on above:Performed By: #### PTT, SCAN CBC, UFHEP, PT, CUBLD, BNP, MG, LACTIC, BMP, HEPATIC ####[place] [address] [place] [address] USAThyroid Stimulating Hormoneon 35-18-5198OOZ Qn30.17 m[IU]/LHigh0.45-5.33The [facility] Physician GroupComment on above:Result Comment: PERFORMED BY:[place] [address] [address] LIZARRAGASHARUNIONV[place], [place] [phone] MEDICAL ELÍAS GERMAN M.D.Performed By: #### TSH3, T4F, T4T ####[place] [address] [facility] [place] [address] USAThyroxine (T4) Total on 84-36-7069F0 [Mass/Vol]1.43 ug/dLLow5.39-11.82The [facility] Physician Group Comment on above:Performed By: #### TSH3, T4F, T4T ####[place] [address] [place] [address] USAToxassure, Urineon 07-31-2025 Toxassure, Urine SummaryFINALNormal.The [facility] Physician GroupComment on above:Result Comment: TOXASSURE COMPDRUG ANALYSIS,UR Test Result Flag Units Drug Present Methamphetamine 2952 ng/mg creat Amphetamine 665 ng/mg creat Sources of methamphetamine include illicit sources, as a scheduled prescription medication, as a metabolite of some prescription drugs, or use of an l-methamphetamine inhaler. Amphetamine is an expected metabolite of methamphetamine. Amphetamine is also available as a schedule II prescription drug. Desmethyldiazepam 27 ng/mg creat Temazepam 14 ng/mg creat Desmethyldiazepam and temazepam are benzodiazepine drugs, but may also be present as common metabolites of other benzodiazepine drugs, including diazepam. Buprenorphine 141 ng/mg creat Norbuprenorphine 221 ng/mg creat Source of buprenorphine is a scheduled prescription medication. Norbuprenorphine is an expected metabolite of buprenorphine. Gabapentin PRESENT Levetiracetam PRESENT Acetaminophen PRESENT Test Result Flag Units Ref Range Creatinine 145 mg/dL >=20 Declared Medications: Medication list was not provided. For clinical consultation, please call . Performed at: [facility] [address] [id number] Data Base Design Analyst: Lesia Balderas, Phone: [phone] BY:[place] [address] [place] [place], [place] [phone] MEDICAL DIRECTORCELESTE GERMAN M.D.Performed By: #### TOXASSURE ####[facility] ,Troponin I High Sensitivityon 65-14-7680Elijduoh I High Cvcfmtpjodm7080Ynl scale [facility] Physician Trace Regional HospitalComment on above: Result Comment: Critical Result : Called to and read back by: IDANIA OCHOA at: 07/31/2025 21:39:42 by:[facility] The Troponin units of report have been changed to meet the Chest Pain Accreditation requirement, element EC5.M1l2. Troponin units are changed from pg/ml to ng/L. Also, the decimal is removed and results are in whole numbers.PERFORMED BY:[phone] MEDICAL DIRECTORCELESTE GERMAN M.D.Performed By: #### CK, HS TROP ####[address] [address] USAUrine Cultureon 99-39-0923Vrnasjgi identified Cx Nom (U)No Growth 2 Days PERFORMED BY: [place] [address] PATHOLOGIST AWARD MACHINE OPERATOR CELESTE GERMAN M.D.NormalMemorial Hospital At Stone CountyComment on above: Performed By: #### CUU ####[place] [id number] USABacteria identified Cx Nom (U)Urine Culture Results No Growth 2 Days PERFORMED BY: [place] [id number] PATHOLOGIST AWARD MACHINE OPERATOR CELESTE GERMAN M.D.United HospitalComment on above: Performed By: #### CUU ####[address] [address] USAUrine cultureOrdered By: Salty Luis on 07-31-2025 Bacteria identified Cx Nom (U)[facility] HospitalXR chest 1V portableon 20-53-1822IQ chest 1V [facility] hospitalNoPending sale to [facility] Phys[facility] Arterial Blood Gason 25-34-9642XGF Base Excess0.2 mmol/LNormal-3.0-3.0The [place] Physician GroupComment on above:Performed By: #### ABG ####Point of Care testing,ABG Frac Inspired G6RvmonhKau [facility] Physician GroupComment on above:Performed By: #### ABG ####Point of Care testing,ABG Liter Qaxs7HTtnbumQxc [facility] Physician GroupComment on above:Performed By: #### ABG ####Point of Care testing,ABG Oxygen Content9.8 mmol/LHigh6.6-9.7The [facility] Physician GroupComment on above:Performed By: #### ABG ####Point of Care testing,ABG Oxygen Vnxdaemdyv04.5 %Newvlo87.0-100.0The [facility] Physician GroupComment on above:Performed By: #### ABG ####Point of Care testing,ABG GNM037.3 mm[Hg]Normal 35.0-45.0The [facility] Physician GroupComment on above:Performed By: #### ABG ####Point of Care testing,ABG PH7.65Xnmytt8.35-7.45The [facility] Physician Group Comment on above:Performed By: #### ABG ####Point of Care testing,ABG PO287.8 mm[Hg]Lnqgxx62.0-100.0The [facility] Physician GroupComment on above:Performed By: #### ABG ####Point of Care testing,CO2 [Moles/Vol]26.3 mmol/NXinukh56.0-27.0 The [facility] Physician GroupComment on above:Performed By: #### ABG ####Point of Care testing,HCO3 (Bld) [Moles/Vol]25.0 mmol/OMteczo43.0-29.0The [facility] Physician GroupComment on above:Performed By: #### ABG ####Point of Care testing,Oxygen DeviceNasal CannulaNormTGH Spring Hill Physician GroupComment on above:Performed By: #### ABG ####Point of Care testing,Respiratory Critical NormalThe [facility] Physician GroupComment on above:Result Comment: Critical Value called on: 06/07/2025 at 13:57PERFORMED BY:[place] [address] [place] [place], [place] [phone] MEDICAL DIRECTORCELESTE GERMAN M.D.Performed By: #### ABG ####Point of Care testing, VBG Draw SiteRigDelray Medical Center Physician GroupComment on above: Performed By: #### ABG ####Point of Care testing,Complete Blood Count Auto Diff on 12-52-1810Ccncawzra (Bld) [#/Vol]0.0 10*3/uLNormal0.0-0.2The [facility] Physician GroupComment on above:Result Comment: PERFORMED BY:[address] PAGECOFFEYV[place], [place] [phone] MEDICAL DIRECTORCELESTE GERMAN M.D.Performed By: #### CMP, CBC ####[address] [address] USABasophils/100 WBC (Bld)0.4 % Normal.The [facility] Physician GroupComment on above:Performed By: #### CMP, CBC ####[address] [address] [place] Eosinophils (Bld) [#/Vol]0.0 10*3/uLNormal0.0-0.45The [facility] Physician Group Comment on above:Performed By: #### CMP, CBC ####[address] [address] USAEosinophils/100 WBC (Bld)0.1 %Normal. The [facility] Physician GroupComment on above:Performed By: #### CMP, CBC ####[address] [address] [place] Erythrocyte distribution width (RBC) [Ratio]15.5 %High12.0-14.8The [facility] Physician GroupComment on above:Performed By: #### CMP, CBC ####[address] [address] USAHematocrit (Bld) [Volume fraction]46.4 %Uayxla34.8-50.0The [facility] Physician GroupComment on above:Performed By: #### CMP, CBC ####[place] [address] USAHemoglobin (Bld) [Mass/Vol]15.2 g/jJOzdwwc14.0-17.0 The [facility] Physician GroupComment on above:Performed By: #### CMP, CBC ####[place] [address] [place] Lymphocytes (Bld) [#/Vol]0.5 10*3/uLLow1.00-4.8The [facility] Physician Group Comment on above:Performed By: #### CMP, CBC ####[place] [address] USALymphocytes/100 WBC (Bld)7.4 %Normal. The [facility] Physician GroupComment on above:Performed By: #### CMP, CBC ####[address] StreetMCH (RBC) [Entitic mass]29.6 zhUggitq86.5-35.2The [facility] Physician GroupComment on above:Performed By: #### CMP, CBC ####[place] [address] USAMCV (RBC) [Entitic vol]90.3 wXVevbdj47.5-101 The [facility] Physician GroupComment on above:Performed By: #### CMP, CBC ####[place] [address] USAMean Corpuscular HGB Conc32.7 g/eSWcbcid34.5-35.6The [facility] Physician GroupComment on above:Performed By: #### CMP, CBC ####[place] [address] USAMonocytes (Bld) [#/Vol]0.2 10*3/uLNormal 0.0-0.8The [facility] Physician GroupComment on above:Performed By: #### CMP, CBC ####[place] [address] [place] Monocytes/100 WBC (Bld)3.3 %Normal.The [facility] Physician GroupComment on above:Performed By: #### CMP, CBC ####[place] [address] USANeutrophils (Bld) [#/Vol]5.8 10*3/uLNormal1.8-7.7The [facility] Physician GroupComment on above:Performed By: #### CMP, CBC ####[place] [address] [place] Neutrophils/100 WBC (Bld)88.8 %Normal.The [facility] Physician GroupComment on above:Performed By: #### CMP, CBC ####[place] [address] USANRBC%0.1 /100{WBC}Normal0-0.5The [facility] Physician GroupComment on above:Performed By: #### CMP, CBC ####[place] [address] USAPlatelet mean volume (Bld) [Entitic vol]6.7 fLNormal6.6-10.1The [facility] Physician GroupComment on above: Performed By: #### CMP, CBC ####[place] [address] USAPlatelets (Bld) [#/Vol]225 10*3/zGOwivve709-091Nez [facility] Physician GroupComment on above:Performed By: #### CMP, CBC ####[place] [address] USARBC (Bld) [#/Vol]5.14 10*6/uLNormal3.90-5.60The [facility] Physician GroupComment on above:Performed By: #### CMP, CBC ####[place] [address] USAWBC (Bld) [#/Vol]6.6 10*3/uLNormal4.1-10.5The [facility] Physician GroupComment on above:Performed By: #### CMP, CBC ####[address] [address] USAWhite Blood Count6.6 [CFU]/mLNormal4.1-10.5The [facility] Physician GroupComment on above:Performed By: #### CMP, CBC ####[address] [address] USAComprehensive Metabolic Panelon 41-83-5506Judrvby [Mass/Vol]4.3 g/dLNormal3.5-5.7The [facility] Physician GroupComment on above: Performed By: #### CMP, CBC ####[address] [address] USAAlbumin/Globulin [Mass ratio]1.5 {ratio}NormalThe [facility] Physician GroupComment on above:Performed By: #### CMP, CBC ####[address] [address] USAALP [Catalytic activity/Vol]97 U/OBasbjq75-929Svk [facility] Physician GroupComment on above:Performed By: #### CMP, CBC ####[address] [address] USAALT [Catalytic activity/Vol]22 U/LNormal7-52 The [facility] Physician GroupComment on above:Performed By: #### CMP, CBC ####[address] [address] USAAnion gap [Moles/Vol]9.2 mmol/LNormal6.0-15.0The [facility] Physician GroupComment on above:Performed By: #### CMP, CBC ####[address] [address] USAAST [Catalytic activity/Vol]57 U/XUimr56-95Zar [facility] Physician GroupComment on above:Performed By: #### CMP, CBC ####[address] [address] [place] Bilirubin [Mass/Vol]0.8 mg/dLNormal0.3-1.0The [facility] Physician GroupComment on above:Performed By: #### CMP, CBC ####[address] [address] USACalcium [Mass/Vol]9.3 mg/dLNormal8.6-10.3The [facility] Physician GroupComment on above:Performed By: #### CMP, CBC ####[address] [address] [place] Chloride [Moles/Vol]98 mmol/QRpckgk17-153Hqo [facility] Physician GroupComment on above:Performed By: #### CMP, CBC ####[address] [address] USACO2 [Moles/Vol]30.8 mmol/MJeubbf64.0-31.0The [facility] Physician GroupComment on above:Performed By: #### CMP, CBC ####[place] [address] [place] Creatinine [Mass/Vol]1.39 mg/dLHigh0.70-1.30The [facility] Physician GroupComment on above:Performed By: #### CMP, CBC ####[address] [address] USACreatinine Clr Calc Grrdalvt72.68NoPending sale to [facility] Physician GroupComment on above:Result Comment: PERFORMED BY:[address] [place], [place] [phone] MEDICAL ELÍAS GERMAN M.D.Performed By: #### CMP, CBC ####[address] [address] USAGFR/1.73 sq M.predicted MDRD (S/P/Bld) [Vol rate/Area]55.911 mL/min/{1.73_m2}NormalThe [facility] Physician GroupComment on above:Performed By: #### CMP, CBC ####[address] [address] [place] Globulin (S) [Mass/Vol]2.9 g/dLColumbia Miami Heart Institute Physician GroupComment on above:Performed By: #### CMP, CBC ####[address] [place] [address] USAGlucose [Mass/Vol]189 mg/qSMyck72-619Glo [facility] Physician GroupComment on above:Result Comment: Random Glucose Reference Range is dependent on time and content of last meal. Glucose of more than 200 mg/dL in a nonstressed, ambulatory subject supports the diagnosis of Diabetes Mellitus. ADA recommended reference rangePerformed By: #### CMP, CBC ####[place] [address] USAPotassium [Moles/Vol] 4.0 mmol/LNormal3.5-5.1The [facility] Physician GroupComment on above:Performed By: #### CMP, CBC ####[place] [address] USAProtein [Mass/Vol]7.2 g/dLNormal6.4-8.9The [facility] Physician Group Comment on above:Performed By: #### CMP, CBC ####[place] [address] USASodium [Moles/Vol]134 mmol/QEra997-441 The [facility] Physician GroupComment on above:Performed By: #### CMP, CBC ####[place] [address] USAUrea nitrogen [Mass/Vol]17 mg/dLNormal7-25The [facility] Physician GroupComment on above:Performed By: #### CMP, CBC ####[place] [address] USADrug Screen,Urineon 09-12-3079Spmkyhqurze Screen,UrinePositiveNormalNegativeThe [facility] Physician GroupComment on above: Performed By: #### URDS ####[place] [address] USABarbiturate Screen,UrineNegativeNormalNegativeThe [facility] Physician GroupComment on above:Performed By: #### URDS ####[place] [address] USABenzodiazepines Screen,UrinePositiveNormalNegativeThe [facility] Physician GroupComment on above: Performed By: #### URDS ####[address] [address] USACannabinoid Screen,UrinePositiveNormalNegativeHca Florida Plantation Emergency Physician GroupComment on above:Result Comment: These are unconfirmed results and should not be used for legal purposes. Drug Cut-Off Concentration: AMPH 1000 ng/mL BHASKAR 200 ng/mL RIKKI 200 ng/mL COCM 300 ng/mL OP 300 ng/mL PCP 25 ng/mL THC 20 ng/mLPERFORMED BY:[place] [address] [address] [place], [place] [phone] MEDICAL ELÍAS GERMAN M.D.Performed By: #### URDS ####[address] [address] USACocaine Screen,UrineNegativeNormalNegativeHca Florida [facility] Emergency Physician GroupComment on above:Performed By: #### URDS ####[address] [address] USAOpiate Screen,Urine PositiveNormalNegativeThe [facility] Physician GroupComment on above:Performed By: #### URDS ####[address] [address] USAPhencyclidine Screen,UrineNegativeNormalNegativeHca Florida [facility] Physician GroupComment on above:Performed By: #### URDS ####[address] [address] USAECG 12 lead ECGon 77-20-1613FGH 12 lead ECGNoPending sale to [facility] Physician GroupECG 12 lead ECGNoPending sale to [facility]ician [facility] HospitalGlucose Poct Glucometerson 51-04-0941Mzhitlp1Boj2: Cleaned Meter NormalHca Florida [facility] Trace Regional HospitalComment on above:Result Comment: PERFORMED BY:[address] [address] [address] [place], [place] [phone] MEDICAL ELÍAS GERMAN M.D.Performed By: #### GLULS ####Point of Care testing,Glucose [Mass/Vol]91 mg/dLNoPending sale to [facility] Physician GroupComment on above:Result Comment: Random Glucose Reference Range is dependent on time and content of last meal. Glucose of more than 200 mg/dL in a nonstressed, ambulatory subject supports the diagnosis of Diabetes Mellitus. Performed By: #### GLULS ####Point of Care testing,Troponin I High Sensitivityon 80-46-3254Sfhruebx I High Zznatjtvpgi82143Syo scale [address] Physician GroupComment on above:Result Comment: Critical Result I_TnIHS_d:[id number] Called to and read back by: JANY SANDOVAL at: 06/07/2025 17:28:45 by:[id number] The Troponin units of report have been changed to meet the Chest Pain Accreditation requirement, element EC5.M1l2. Troponin units are changed from pg/ml to ng/L. Also, the decimal is removed and results are in whole numbers.PERFORMED BY:[address] [address] [place] [place], [place] [phone] MEDICAL ELÍAS GERMAN M.D.Performed By: #### HS TROP ####[address] [address] USATroponin I High Rlamjrfkntp53655Kmm [address] Physician Trace Regional HospitalComment on above:Order Comment: per rn jemsa wait till they sedate ptResult Comment: Critical Result I_TnIHS_d:[id number] Called to and read back by: JANY SANDOVAL at: 06/07/2025 15:32:31 by:[id number] The Troponin units of report have been changed to meet the Chest Pain Accreditation requirement, element EC5.M1l2. Troponin units are changed from pg/ml to ng/L. Also, the deci mal is removed and results are in whole numbers.PERFORMED BY:[address] [place], [place] [phone] MEDICAL ELÍAS GERMAN M.D.Performed By: #### HS TROP ####[address] [address] USATroponin I High Sensitivity 6616Off scale [address] Physician GroupComment on above:Order Comment: rn will call when pt is back in roomResult Comment: Critical Result : Called to and read back by: JANY SANDOVAL at: 06/07/2025 11:59:11 by:[email or web address] The Troponin units of report have been changed to meet the Chest Pain Accreditation requirement, element EC5.M1l2. Troponin units are changed from pg/ml to ng/L. Also, the decimal is removed andresults are in whole numbers.PERFORMED BY:[address] ANDREEJeremiCOFFEEVILLE, [place] [phone] MEDICAL DIRECTORCELESTE GERMAN M.D.Performed By: #### HS TROP ####[address] [address] USABasic Metabolic Panelon 86-13-2772Cbubo gap [Moles/Vol]13.2 mmol/L Normal6.0-15.0The [facility] Physician GroupComment on above:Performed By: #### MG BMP, CBCNO ####[address] [address] USACalcium [Mass/Vol]9.7 mg/dLNormal8.6-10.3The [facility]ician Group Comment on above:Performed By: #### MG BMP, CBCNO ####[address] [address] USAChloride [Moles/Vol]105 mmol/L Jperqy89-123Fzf [facility] Physician GroupComment on above:Performed By: #### MG BMP, CBCNO ####[address] [address] USACO2 [Moles/Vol]25.2 mmol/ZRwsddq25.0-31.0The [facility]ician Group Comment on above:Performed By: #### MG, BMP, CBCNO ####[address] [address] USACreatinine [Mass/Vol]0.81 mg/dLNormal0.70-1.30The [facility] Physician GroupComment on above:Performed By: #### MG, BMP, CBCNO ####[facility] [place] [address] USACreatinine Clr Calc Araepdel17.46NormalThSt. Luke's McCall Physician GroupComment on above:Performed By: #### LISA HAIR CBCNO ####[address] [place] [address] USAGFR/1.73 sq M.predicted MDRD (S/P/Bld) [Vol rate/Area]mL/min/{1.73_m2}NormalThe [facility] Physician Group Comment on above:Performed By: #### LISA HAIR CBCNO ####[address] [place] [address] USAGlucose [Mass/Vol]103 mg/dL Jmrr05-972Dwq [facility] Physician GroupComment on above:Result Comment: Random Glucose Reference Range is dependent on time and content of last meal. Glucose of more than 200 mg/dL in a nonstressed, ambulatory subject supports the diagnosis of Diabetes Mellitus. ADA recommended reference rangePerformed By: #### LISA HAIR CBCNO ####[address] [place] [address] USAPotassium [Moles/Vol]3.4 mmol/LLow3.5-5.1The [facility] Physician GroupComment on above:Performed By: #### LISA HAIR CBCNO ####[address] [address] USASodium [Moles/Vol]140 mmol/L Zskals445-749Iuv [facility] Physician GroupComment on above:Performed By: #### LISA HAIR CBCNO ####[address] [place] [address] USAUrea nitrogen [Mass/Vol]19 mg/dLNormal7-25The [facility]ician Group Comment on above:Performed By: #### LISA HAIR CBCNO ####[address] [address] USACalcium [Mass/volume] in Serum or PlasmaOrdered By: Yamila Donald on 71-34-4033Mnabbil [Mass/Vol]Calcium [Mass/volume] in Serum or Plasma8.6-10.3FChillicothe VA Medical CenterCarbon dioxide, total [Moles/volume] in Serum or PlasmaOrdered By: Yamila Donald on 58-86-7788RC0 [Moles/Vol]Carbon dioxide, total [Moles/volume] in Serum or Plasma 21.0-31.0[facility] HospitalChloride [Moles/volume] in Serum or PlasmaOrdered By: Yamila Donald on 68-67-9181Qorjlmfl [Moles/Vol]Chloride [Moles/volume] in Serum or Luqcuf97-967QivihlyyvDunlap Memorial Hospital Creatinine [Mass/volume] in Serum or PlasmaOrdered By: Yamila Donald on 25-20-2913Txxfewqfnc [Mass/Vol]Creatinine [Mass/volume] in Serum or Plasma 0.70-1.30[facility] HospitalErythrocyte distribution width Auto (RBC) [Ratio]Ordered By: Yamila Donald on 95-96-8885Nrtpuatqtaw distribution width (RBC) [Ratio]Erythrocyte distribution width [Ratio] by Automated count 12.0-14.8[facility] HospitalGlucose [Mass/volume] in Serum or PlasmaOrdered By: Yamila Donald on 89-92-3208Bpqvmps [Mass/Vol]Glucose [Mass/volume] in Serum or CyhneaGbge24-328VyttdbrurDunlap Memorial Hospital Comment on above:ADA recommended reference rangeRandom Glucose Reference Range is dependent on time and content of last meal. Glucose of more than 200 mg/dL in a nonstressed, ambulatory subject supports the diagnosisof Diabetes Mellitus. Hematocrit Auto (Bld) [Volume fraction]Ordered By: Yamila Donald on 11-19-2024 Hematocrit (Bld) [Volume fraction]Hematocrit [Volume Fraction] of Blood by Automated count38.8-50.0[facility] HospitalHemoglobin [Mass/volume] in BloodOrdered By: Yamila Donald on 54-03-3406Rlqxtohpwe (Bld) [Mass/Vol]Hemoglobin [Mass/volume] in Blood13.0-17.0[facility] HospitalHemogram CBC Without Diffon 44-50-3175Tydvazsyfuy distribution width (RBC) [Ratio]13.7 %Hxqeqj54.0-14.8The [facility] Physician GroupComment on above: Performed By: #### MG, BMP, CBCNO ####[address] [address] USAHematocrit (Bld) [Volume fraction]45.8 %Normal 38.8-50.0The [facility] Physician GroupComment on above:Performed By: #### MG, BMP, CBCNO ####[address] USAHemoglobin (Bld) [Mass/Vol]15.4 g/nVSduuuf49.0-17.0The [facility] Physician GroupComment on above:Performed By: #### MG, BMP, CBCNO ####[address] [address] [facility] (RBC) [Entitic mass]29.0 boZtbref89.5-35.2The [facility] Physician GroupComment on above:Performed By: #### MG, BMP, CBCNO ####[place] [address] [facility]DV (RBC) [Entitic vol]86.4 xJXvgbag59.5-101The [facility] Physician GroupComment on above:Performed By: #### MG, BMP, CBCNO ####[address] USAMean Corpuscular HGB Conc33.5 g/jTCpuqyw05.5-35.6The [facility] Physician GroupComment on above:Performed By: #### MG, BMP, CBCNO ####[address] USAPlatelet mean volume (Bld) [Entitic vol]7.9 fLNormal6.6-10.1The [facility] Physician GroupComment on above:Result Comment: PERFORMED BY:[address] [place], [place] [phone] MEDICAL DIRECTORVÍCTOR LUCERO M.D.Performed By: #### MG, BMP, CBCNO ####[address] [address] [place] [address] [place] Platelets (Bld) [#/Vol]203 10*3/iCPtselp312-677Dtl [facility] Comment on above:Performed By: #### MG, BMP, CBCNO ####[facility] [address] [place] [address] USARBC (Bld) [#/Vol]5.31 10*6/uL Normal3.90-5.60The [facility] Physician GroupComment on above:Performed By: #### MG, BMP, CBCNO ####[facility] [address] [place] [address] USAWBC (Bld) [#/Vol]8.2 10*3/uLNormal4.1-10.5The [facility] Comment on above:Performed By: #### MG, BMP, CBCNO ####[facility] [address] [place] [address] USALeukocytes [#/volume] corrected for nucleated erythrocytes in Blood by Automated counOrdered By: Yamila Donald on 47-44-1243VBI corrected for nucl RBC Auto (Bld) [#/Vol] Leukocytes [#/volume] corrected for nucleated erythrocytes in Blood by Automated coun4.1-10.5FTrinity Health System West CampusH Auto (RBC) [Entitic mass] Ordered By: Yamila Donald on 50-22-4853JVL (RBC) [Entitic mass]MCH [Entitic mass] by Automated count27.5-35.2FChillicothe VA Medical CenterMCHC Auto (RBC) [Mass/Vol]Ordered By: Yamila Donald on 97-87-6427YQGD (RBC) [Mass/Vol] MCHC [Mass/volume] by Automated count32.5-35.6FChillicothe VA Medical Center MCV Auto (RBC) [Entitic vol]Ordered By: Yamila Donald on 30-70-5068SOC (RBC) [Entitic vol]MCV [Entitic volume] by Automated count83.5-101[facility] HospitalMR head/brain wo conon 65-64-1981EM head/brain wo conNormalThe [facility] Physician GroupMagnesiumon 34-59-5380Oljqupctk [Mass/Vol]1.7 mg/dLLow 1.9-2.7The [facility] Physician GroupComment on above:Result Comment: PERFORMED BY:[facility] [place], [place] [address], [place] [phone] MEDICAL DIRECTORVÍCTOR LUCERO M.D.Performed By: #### MG, BMP, CBCNO ####[facility] [place] [address] USAMagnesium [Mass/volume] in Serum or PlasmaOrdered By: Yamila Donald on 84-17-4733Ycdkpbtqb [Mass/Vol]Magnesium [Mass/volume] in Serum or PlasmaLow 1.9-2.7FChillicothe VA Medical CenterMagnetic resonance imaging reportOrdered By: Regino Mckinley on 94-43-8235Tmmez reportMERCY HEALTH ST. [facility] Main [place] [address] [place] [address] MRI Report Signed Patient: Aaron Olivarez MR#: [id number] : 1960 Acct:[id number] Age/Sex: 64 / M ADM Date: 5 Loc: Room: [address] [place] [address] Type: ADM IN Attending Dr: Yamila Donald [...] Regino Mckinley M.D.11/19/2024 4:50 PM Dictation Location: [place] [address] Transcribed By: YNES 11/19/24 165 Dictated By: Regino Mckinley MD 11/19/24 164 Signed By: 11/19/24 165 [facility] Work Phone: no Panel InformationOrdered By: Yamila Donald on 69-99-8094Twpermiwp GFR (CKD-EPI)> 60.0 mL/MinDunlap Memorial Hospital Pharmacy Creatinine Clearance (Chem98.46[facility] Platelet mean volume Auto (Bld) [Entitic vol]Ordered By: Yamila Donald on 44-58-5428Eeeoqrkx mean volume (Bld) [Entitic vol]Platelet mean volume [Entitic volume] in Blood by Automated count6.6-10.1FChillicothe VA Medical Center Platelets Auto (Bld) [#/Vol]Ordered By: Yamila Donald on 36-51-4938Odznlqpxa (Bld) [#/Vol]Platelets [#/volume] in Blood by Automated urluv724-409KehxvfiooDunlap Memorial HospitalPotassium [Moles/volume] in Serum or PlasmaOrdered By: Yamila Donald on 15-20-7767Zhyrmkfsj [Moles/Vol]Potassium [Moles/volume] in Serum or PlasmaLow3.5-5.1FChillicothe VA Medical CenterRBC Auto (Bld) [#/Vol] Ordered By: Yamila Donald on 04-15-0847RKF (Bld) [#/Vol]Erythrocytes [#/volume] in Blood by Automated count3.90-5.60Middletown Hospitalerum or plasma anion gap determinationOrdered By: Yamila Donald on 21-87-1751Wyhhv gap [Moles/Vol]Serum or plasma anion gap determination6.0-15.0M[facility]letown Hospitalodium [Moles/volume] in Serum or PlasmaOrdered By: Yamila Donald on 01-10-0468Jfquuh [Moles/Vol]Sodium [Moles/volume] in Serum or Ygnpuw089-561 [facility] HospitalUrea nitrogen [Mass/volume] in Serum or Plasma Ordered By: Yamila Donald on 48-00-0959Xsgo nitrogen [Mass/Vol]Urea nitrogen [Mass/volume] in Serum or Plasma7-25[facility] Memorial HospitalAlanine aminotransferase [Enzymatic activity/volume] in Serum or PlasmaOrdered By: Chaz Frey on 54-15-5781LKM [Catalytic activity/Vol]Alanine aminotransferase [Enzymatic activity/volume] in Serum or Plasma7-52[facility] HospitalAlbumin [Mass/volume] in Serum or Plasma by Bromocresol green (BCG) dye binding methoOrdered By: Chaz Frey on 34-20-9811Xbhxmrk BCG dye [Mass/Vol] Albumin [Mass/volume] in Serum or Plasma by Bromocresol green (BCG) dye binding metho3.5-5.7FChillicothe VA Medical CenterAlkaline phosphatase [Enzymatic activity/volume] in Serum or PlasmaOrdered By: Chaz Frey on 93-87-7030VKH [Catalytic activity/Vol]Alkaline phosphatase [Enzymatic activity/volume] in Serum or Bnssrj35-562VxbzvepyjDunlap Memorial HospitalAspartate aminotransferase [Enzymatic activity/volume] in Serum or PlasmaOrdered By: Chaz Frey on 27-00-2867AAZ [Catalytic activity/Vol]Aspartate aminotransferase [Enzymatic activity/volume] in Serum or Lwcuqr56-36GtndmjzklDunlap Memorial Hospital Basophils Auto (Bld) [#/Vol]Ordered By: Chaz Frey on 28-65-5333Gohmgufjs (Bld) [#/Vol]Automated basophil count0.0-0.2FChillicothe VA Medical Center Basophils/100 WBC Auto (Bld)Ordered By: Chaz Frey on 30-32-1311Nbupsbsyg/100 WBC (Bld)Automated basophil %.[facility] HospitalBilirubin.total [Mass/volume] in Serum or PlasmaOrdered By: Chaz Frey on 99-55-9674Jxvcqqoyw [Mass/Vol]Bilirubin.total [Mass/volume] in Serum or PlasmaHigh0.3-1.0[facility] HospitalCalcium [Mass/volume] in Serum or PlasmaOrdered By: Chaz Frey on 23-92-5496Zivibks [Mass/Vol]Calcium [Mass/volume] in Serum or Plasma 8.6-10.3FChillicothe VA Medical CenterCarbon dioxide, total [Moles/volume] in Serum or PlasmaOrdered By: Chaz Frey on 05-08-8158RC1 [Moles/Vol]Carbon dioxide, total [Moles/volume] in Serum or AtbmamXuon24.0-31.0[facility] HospitalChloride [Moles/volume] in Serum or PlasmaOrdered By: Chaz Frey on 87-95-8311Sxlcsard [Moles/Vol]Chloride [Moles/volume] in Serum or Sqmcsj56-348CgboaafduDunlap Memorial HospitalComplete Blood Count Auto Diffon 72-90-8533Citwfhpmp (Bld) [#/Vol]0.0 10*3/uLNormal0.0-0.2The [facility] Physician Trace Regional HospitalComment on above:Result Comment: PERFORMED BY:[address] [place], [place] [phone] MEDICAL DIRECTORVÍCTOR LUCERO M.D.Performed By: #### HS TROP, PRL, CMP, CBC ####[address] [address] [place] Basophils/100 WBC (Bld)0.6 %Normal.The [facility] Physician GroupComment on above:Performed By: #### HS TROP, PRL, CMP, CBC ####[address] [address] USAEosinophils (Bld) [#/Vol]0.0 10*3/uL Normal0.0-0.45The [facility] Physician GroupComment on above:Performed By: #### HS TROP, PRL, CMP, CBC ####[place] [address] USAEosinophils/100 WBC (Bld)0.1 %Normal.The [facility] Physician GroupComment on above:Performed By: #### HS TROP, PRL, CMP, CBC ####[address] Erythrocyte distribution width (RBC) [Ratio]13.3 %Jsaoqb54.0-14.8The [facility] Physician GroupComment on above:Performed By: #### HS TROP, PRL, CMP, CBC ####[address] Hematocrit (Bld) [Volume fraction]43.0 %Xlhrzo07.8-50.0The [facility] Physician GroupComment on above:Performed By: #### HS TROP, PRL, CMP, CBC ####[place] [address] USAHemoglobin (Bld) [Mass/Vol]14.6 g/cFYudlqj37.0-17.0The [facility] Physician GroupComment on above: Performed By: #### HS TROP, PRL, CMP, CBC ####[place] [address] USALymphocytes (Bld) [#/Vol]1.4 10*3/uLNormal 1.00-4.8The [facility] Physician GroupComment on above:Performed By: #### HS TROP, PRL, CMP, CBC ####[place] [address] USALymphocytes/100 WBC (Bld)20.9 %Normal.The [facility]ician [facility] Comment on above:Performed By: #### HS TROP, PRL, CMP, CBC ####[place] [address] USAMCH (RBC) [Entitic mass]29.1 ydJyksbf95.5-35.2The [facility] Physician GroupComment on above: Performed By: #### HS TROP, PRL, CMP, CBC ####[place] [id number] USAMCV (RBC) [Entitic vol]85.8 tHVaxnps28.5-101 The [facility] Physician GroupComment on above:Performed By: #### HS TROP, PRL, CMP, CBC ####[place] [address] USAMean Corpuscular HGB Conc33.9 g/hPCueecs31.5-35.6The [facility] Physician GroupComment on above:Performed By: #### HS TROP, PRL, CMP, CBC ####[place] [address] USAMonocytes (Bld) [#/Vol]0.6 10*3/uLNormal0.0-0.8The [facility] Physician GroupComment on above: Performed By: #### HS TROP, PRL, CMP, CBC ####[place] [address] USAMonocytes/100 WBC (Bld)8.5 %Normal.The [facility] Physician GroupComment on above:Performed By: #### HS TROP, PRL, CMP, CBC ####[place] [address] [place] Neutrophils (Bld) [#/Vol]4.7 10*3/uLNormal1.8-7.7The [facility]ician Group Comment on above:Performed By: #### HS TROP, PRL, CMP, CBC ####[place] [address] USANeutrophils/100 WBC (Bld)69.9 %Normal.The [facility] Physician GroupComment on above:Performed By: #### HS TROP, PRL, CMP, CBC ####[place] [address] USANRBC%0.1 /100{WBC}Normal0-0.5The [facility] Physician GroupComment on above:Performed By: #### HS TROP, PRL, CMP, CBC ####[place] [address] USAPlatelet mean volume (Bld) [Entitic vol]7.6 fLNormal6.6-10.1The [facility] Physician GroupComment on above:Performed By: #### HS TROP, PRL, CMP, CBC ####[address] [address] USAPlatelets (Bld) [#/Vol]216 10*3/uL Xkjoxh742-620Jid [facility] Physician GroupComment on above:Performed By: #### HS TROP, PRL, CMP, CBC ####[address] [address] USARBC (Bld) [#/Vol]5.01 10*6/uLNormal3.90-5.60The [facility] Physician GroupComment on above:Performed By: #### HS TROP, PRL, CMP, CBC ####[place] [address] USAWBC (Bld) [#/Vol]6.7 10*3/uLNormal4.1-10.5The [facility] Physician GroupComment on above:Performed By: #### HS TROP, PRL, CMP, CBC ####[place] [address] USAComprehensive Metabolic Panelon 69-41-1545Mgxyhto [Mass/Vol]3.9 g/dLNormal3.5-5.7The [facility]ician Group Comment on above:Performed By: #### HS TROP, PRL, CMP, CBC ####[place] [address] USAAlbumin/Globulin [Mass ratio]1.6 {ratio}NormalThe [facility] Physician GroupComment on above: Performed By: #### HS TROP, PRL, CMP, CBC ####[place] [address] USAALP [Catalytic activity/Vol]93 U/FQrrxvs22-283 The [facility] Physician GroupComment on above:Performed By: #### HS TROP, PRL, CMP, CBC ####[place] [id number] USAALT [Catalytic activity/Vol]10 U/LNormal7-52The [facility]ician Group Comment on above:Performed By: #### HS TROP, PRL, CMP, CBC ####[place] [address] USAAnion gap [Moles/Vol] 9.7 mmol/LNormal6.0-15.0The [facility] Physician GroupComment on above:Performed By: #### HS TROP, PRL, CMP, CBC ####[place] [address] USAAST [Catalytic activity/Vol]16 U/BTqcgzo24-16Neq [facility] Physician GroupComment on above:Performed By: #### HS TROP, PRL, CMP, CBC ####[place] [address] [place] Bilirubin [Mass/Vol]1.2 mg/dLHigh0.3-1.0The [facility] Physician GroupComment on above:Performed By: #### HS TROP, PRL, CMP, CBC ####[place] [address] USACalcium [Mass/Vol]9.4 mg/dLNormal 8.6-10.3The [facility] Physician GroupComment on above:Performed By: #### HS TROP, PRL, CMP, CBC ####[place] [address] USAChloride [Moles/Vol]105 mmol/XDosxqw04-918Ise [facility] Physician GroupComment on above:Performed By: #### HS TROP, PRL, CMP, CBC ####[place] [address] USACO2 [Moles/Vol]31.4 mmol/LHigh21.0-31.0The [facility] Physician GroupComment on above:Performed By: #### HS TROP, PRL, CMP, CBC ####[place] [address] USACreatinine [Mass/Vol]1.10 mg/dLNormal0.70-1.30The [facility] Physician GroupComment on above:Performed By: #### HS TROP, PRL, CMP, CBC ####[address] [place] [address] [place] Creatinine Clr Calc Wexdhlqp58.51NormalThe [facility] Physician GroupComment on above:Performed By: #### HS TROP, PRL, CMP, CBC ####[place] [address] USAGFR/1.73 sq M.predicted MDRD (S/P/Bld) [Vol rate/Area]mL/min/{1.73_m2}NormalThe [facility] Physician GroupComment on above:Performed By: #### HS TROP, PRL, CMP, CBC ####[place] [address] USAGlobulin (S) [Mass/Vol]2.4 g/dLNormal The [facility] Physician GroupComment on above:Performed By: #### HS TROP, PRL, CMP, CBC ####[place] [address] USAGlucose [Mass/Vol]113 mg/aMAlyt01-056Pkc [facility] Physician GroupComment on above:Result Comment: Random Glucose Reference Range is dependent on time and content of last meal. Glucose of more than 200 mg/dL in a nonstressed, ambulatory subject supports the diagnosis of Diabetes Mellitus. ADA recommended reference rangePerformed By: #### HS TROP, PRL, CMP, CBC ####[place] [address] USAPotassium [Moles/Vol]4.1 mmol/LNormal3.5-5.1The [facility] Physician GroupComment on above:Performed By: #### HS TROP, PRL, CMP, CBC ####[place] [id number] USAProtein [Mass/Vol]6.3 g/dLLow6.4-8.9The [facility] Physician GroupComment on above:Performed By: #### HS TROP, PRL, CMP, CBC ####[place] [id number] USASodium [Moles/Vol]142 mmol/PJslqma224-862Myp [facility] Physician GroupComment on above: Performed By: #### HS TROP, PRL, CMP, CBC ####[facility] [address] [place] [address] USAUrea nitrogen [Mass/Vol]22 mg/dLNormal7-25The [facility] Physician GroupComment on above:Performed By: #### HS TROP, PRL, CMP, CBC ####[facility] [address] [place] [id number] [facility] Creatinine [Mass/volume] in Serum or PlasmaOrdered By: Chaz Frey on 32-43-4380Ijrpigwcys [Mass/Vol]Creatinine [Mass/volume] in Serum or Plasma 0.70-1.30[facility] HospitalECH echo transthoracicon 57-48-6042QPN echo transthoracicNoPending sale to [facility] Physician GroupEosinophils Auto (Bld) [#/Vol]Ordered By: Chaz Frey on 76-39-6659Epktelabmuy (Bld) [#/Vol]Automated eosinophil count0.0-0.45[facility] HospitalEosinophils/100 WBC Auto (Bld)Ordered By: Chaz Frey on 18-32-6605Ledzgytdlzz/100 WBC (Bld) Automated eosinophil %.[facility] HospitalErythrocyte distribution width Auto (RBC) [Ratio]Ordered By: Chaz Frey on 64-72-7405Ctggcypdkxv distribution width (RBC) [Ratio]Erythrocyte distribution width [Ratio] by Automated count12.0-14.8[facility] Memorial HospitalGlobulin Calc (S) [Mass/Vol]Ordered By: Chaz Frey on 77-36-5811Domfufco (S) [Mass/Vol]Serum globulin measurement by calculation (mass/volume)[facility] HospitalGlucose [Mass/volume] in Serum or PlasmaOrdered By: Chaz Frey on 45-68-5536Yevmihf [Mass/Vol]Glucose [Mass/volume] in Serum or CjvnneLqet53-216 [facility] HospitalComment on above:ADA recommended reference rangeRandom Glucose Reference Range is dependent on time and content of last meal. Glucose of more than 200 mg/dL in a nonstressed, ambulatory subject supports the diagnosisof Diabetes Mellitus.Hematocrit Auto (Bld) [Volume fraction]Ordered By: Chaz Frey on 82-73-7011Bsloevkcod (Bld) [Volume fraction]Hematocrit [Volume Fraction] of Blood by Automated count38.8-50.0 [facility] HospitalHemoglobin [Mass/volume] in BloodOrdered By: Chaz Frey on 86-97-2984Wqwhvhqusu (Bld) [Mass/Vol]Hemoglobin [Mass/volume] in Blood13.0-17.0[facility] HospitalLeukocytes [#/volume] corrected for nucleated erythrocytes in Blood by Automated counOrdered By: Chaz Frey on 86-60-6259DKQ corrected for nucl RBC Auto (Bld) [#/Vol]Leukocytes [#/volume] corrected for nucleated erythrocytes in Blood by Automated coun 4.1-10.5FChillicothe VA Medical CenterLymphocytes Auto (Bld) [#/Vol]Ordered By: Chaz Frey on 01-43-8248Ghobrebdxvg (Bld) [#/Vol]Lymphocytes [#/volume] in Blood by Automated count1.00-4.8[facility] Lymphocytes/100 WBC Auto (Bld)Ordered By: Chaz Frey on 11-18-2024 Lymphocytes/100 WBC (Bld)Lymphocytes/100 leukocytes in Blood by Automated count. [facility] HospitalMCH Auto (RBC) [Entitic mass]Ordered By: Chaz Frey on 04-99-4600QPB (RBC) [Entitic mass]MCH [Entitic mass] by Automated count27.5-35.2FChillicothe VA Medical CenterMCHC Auto (RBC) [Mass/Vol]Ordered By: Chaz Frey on 92-38-5792GSXY (RBC) [Mass/Vol]MCHC [Mass/volume] by Automated count32.5-35.6FChillicothe VA Medical CenterMCV Auto (RBC) [Entitic vol]Ordered By: Chaz Frey on 40-72-0158RTV (RBC) [Entitic vol]MCV [Entitic volume] by Automated count83.5-101[facility] HospitalMonocytes Auto (Bld) [#/Vol]Ordered By: Chaz Frey on 24-97-3453Ykxdkvlps (Bld) [#/Vol] Automated blood monocyte count0.0-0.8[facility] Monocytes/100 WBC Auto (Bld)Ordered By: Chaz Frey on 48-06-3396Nmvxrevlt/100 WBC (Bld)Automated monocyte %.[facility] HospitalNeutrophils Auto (Bld) [#/Vol]Ordered By: Chaz Frey on 95-43-8988Syhzvivryoz (Bld) [#/Vol] Neutrophils [#/volume] in Blood by Automated count1.8-7.7FChillicothe VA Medical CenterNeutrophils/100 WBC Auto (Bld)Ordered By: Chaz Frey on 12-90-3077Refwnnhtagv/100 WBC (Bld)Automated neutrophil %.[facility] HospitalNo Panel InformationOrdered By: Chaz Frey on 11-18-2024 Estimated GFR (CKD-EPI)> 60.0 mL/MinDunlap Memorial HospitalPharmacy Creatinine Clearance (Chem72.51[facility] HospitalNucleated erythrocytes [Presence] in Blood by Automated countOrdered By: Chaz Frey on 69-18-2667Qotelwgse RBC Auto Ql (Bld)Nucleated erythrocytes [Presence] in Blood by Automated count0-0.5FChillicothe VA Medical CenterPlatelet mean volume Auto (Bld) [Entitic vol]Ordered By: Chaz Frey on 22-00-4707Utoiovin mean volume (Bld) [Entitic vol]Platelet mean volume [Entitic volume] in Blood by Automated count6.6-10.1FChillicothe VA Medical CenterPlatelets Auto (Bld) [#/Vol]Ordered By: Chaz Frey on 41-68-5181Qlyhvdhli (Bld) [#/Vol]Platelets [#/volume] in Blood by Automated alneh674-635ScwuakgjfDunlap Memorial Hospital Potassium [Moles/volume] in Serum or PlasmaOrdered By: Chaz Frey on 82-49-8623Oihaobcfi [Moles/Vol]Potassium [Moles/volume] in Serum or Plasma 3.5-5.1FChillicothe VA Medical CenterProlactinon 65-69-1023Rgfixchdb73.14 ng/mLHigh2.64-13.13[facility] Physician GroupComment on above:Result Comment: PERFORMED BY:[place] [address] [address] [place], [place] [phone] MEDICAL DIRECTORVÍCTOR LUCERO M.D. Performed By: #### HS TROP, PRL, CMP, CBC ####[facility] [address] [place] [address] USAProlactin [Mass/volume] in Serum or Plasma Ordered By: Chaz Frey on 31-38-6182Wgtbervty [Mass/Vol]Prolactin [Mass/volume] in Serum or PlasmaHigh2.64-13.13[facility] Protein [Mass/volume] in Serum or PlasmaOrdered By: Chaz Frey on 11-18-2024 Protein [Mass/Vol]Protein [Mass/volume] in Serum or PlasmaLow6.4-8.9[facility] HospitalRBC Auto (Bld) [#/Vol]Ordered By: Chaz Frey on 36-35-0405TJR (Bld) [#/Vol]Erythrocytes [#/volume] in Blood by Automated count 3.90-5.60[facility]letown Hospitalerum or plasma albumin/globulin mass ratioOrdered By: Chaz Frey on 04-07-0205Wgnheai/Globulin [Mass ratio]Serum or plasma albumin/globulin mass ratioMiddletown Hospitalerum or plasma anion gap determinationOrdered By: Chaz Frey on 08-93-9031Wyerw gap [Moles/Vol]Serum or plasma anion gap determination6.0-15.0[facility]letown Hospitalodium [Moles/volume] in Serum or PlasmaOrdered By: Chaz Frey on 20-45-5129Bsplnu [Moles/Vol]Sodium [Moles/volume] in Serum or Emaauw241-902 [facility] HospitalTroponin I High Sensitivityon 11-18-2024 Troponin I High Gxhutiqgccy51.6 pg/mLHigh0.0-20.0[facility] Comment on above:Result Comment: PERFORMED BY:[place] [address] [address] [place], [place] [phone] MEDICAL DIRECTORVÍCTOR LUCERO M.D.Performed By: #### HS TROP, PRL, CMP, CBC ####[facility] [address] Troponin I.cardiac [Mass/volume] in Serum or Plasma by Detection limit <= 0.01 ng/Ordered By: Chaz Frey on 52-32-0551Ksmjwveh I.cardiac DL <= 0.01 ng/mL [Mass/Vol]Troponin I.cardiac [Mass/volume] in Serum or Plasma by Detection limit <= 0.01 ng/High0.0-20.0[facility] HospitalUrea nitrogen [Mass/volume] in Serum or PlasmaOrdered By: Chaz Frey on 83-78-5470Hqoj nitrogen [Mass/Vol]Urea nitrogen [Mass/volume] in Serum or Plasma7-25[facility] HospitalWBC Auto (Bld) [#/Vol]Ordered By: Chaz Frey on 26-21-8942WYF (Bld) [#/Vol]Leukocytes [#/volume] in Blood by Automated count 4.1-10.5FChillicothe VA Medical CenterAmphetamine Screen Ql (U)Ordered By: Jamin Sepulveda on 27-66-7582Tpbrkbjfvoxg Ql (U)Amphetamines screenHighNegative [facility] HospitalAmphetamine cutoff [Mass/volume] in Urine for Confirmatory methodOrdered By: Chaz Frey on 89-87-1024Bjfatrjefuj cutoff Confirm (U) [Mass/Vol]Amphetamine cutoff [Mass/volume] in Urine for Confirmatory gyhybkWdznxx=170UmdplnenmDunlap Memorial HospitalAmphetamine+Methamphetamine [Presence] in UrineOrdered By: Chaz Frey on 11-17-2024 Amphetamine+Methamphetamine Ql (U)Amphetamine+Methamphetamine [Presence] in DdnwhEnazcghmTzjurz=4411Exloqzukg Regional Medical CenterComment on above: Amphetamine test includes Amphetamine and Methamphetamine.Amphetamines [Presence] in UrineOrdered By: Chaz Frey on 87-56-4625Mlftozmpblrd Ql (U) Amphetamines [Presence] in UrineAbnormal.[facility] Amphetamines [Presence] in Urine by Screen methodOrdered By: Chaz Frey on 17-52-3332Gdcxjprgsrid Screen Ql (U)Amphetamines [Presence] in Urine by Screen rdgfhkSjherc=3642QnlegmstrDunlap Memorial HospitalComment on above:Amphetamine test includes Amphetamine and Methamphetamine.Appearance of UrineOrdered By: Jamin Sepulveda on 96-20-3392Wxrdqzkshi (U)Urine appearanceCleRegency Hospital Cleveland EastBacteria [Presence] in Urine by AutomatedOrdered By: Jamin Sepulveda on 24-62-4096Kwgpqviq Auto Ql (U)Bacteria [Presence] in Urine by AutomatedNone SeenDunlap Memorial HospitalBarbiturates [Presence] in Urine by Screen methodOrdered By: Jamin Sepulveda on 83-64-4946Orzlcdapkhdn Screen Ql (U) Barbiturates [Presence] in Urine by Screen dbgehgSqmgfp=499Deojflliq[address] [place], [place] [address]Benzodiazepines Screen Ql (U)Ordered By: Jamin Sepulveda on 13-26-1838Vmkjaukhmyxmhjc Ql (U)Benzodiazepines [Presence] in Urine by Screen methodHighNegSt. Vincent HospitalBenzodiazepines [Presence] in UrineOrdered By: Chaz Frey on 56-81-7626Juwjfhlvwkfjqxn Ql (U) Benzodiazepines [Presence] in KmgzkJdkrpp=299Lnwcgzuzu[address] [place] [address] Benzoylecgonine [Presence] in Urine by Screen methodOrdered By: Jamin Sepulveda on 82-73-2305Qrouoyfjvbsztrn Screen Ql (U)Benzoylecgonine [Presence] in Urine by Screen methodNegSt. Vincent HospitalBilirubin Test strip Ql (U)Ordered By: Jamin Sepulveda on 07-93-8581Avrnnmvdo Ql (U)Bilirubin.total [Presence] in Urine by Test stripNegSt. Vincent HospitalCT angio neckon 02-82-9378TY angio neckNoPending sale to [facility] Physician GroupCT head stroke alert wo conon 09-20-7196IT head stroke alert wo conNFormerly [facility] Physician GroupCannabinoids [Mass/volume] in Urine by Confirmatory methodOrdered By: Chaz Frey on 91-93-3266Txnidbakgyvn Confirm (U) [Mass/Vol]Cannabinoids [Mass/volume] in Urine by Confirmatory methodCutoff=[address] [place], [place] [address]Cannabinoids [Presence] in Urine by Screen methodOrdered By: Jamin Sepulveda on 18-72-7918Puufkoathvlg Screen Ql (U)Cannabinoids [Presence] in Urine by Screen methodCutoff=50[facility] HospitalComment on above:These are unconfirmed results and should not be used for legal purposes. Drug Cut-Off Concentration: AMPH 1000 ng/mL BHASKAR 200 ng/mL RIKKI 200 ng/mL COCM 300 ng/mL OP 300 ng/mL PCP 25 ng/mL THC 20 ng/mLColor Auto (U)Ordered By: Jamin Sepulveda on 71-77-0333Jrzfh (U)Color of Urine by AutoYellowDunlap Memorial Hospital Complete Blood Count Auto Diffon 40-50-2909Nkkpmmjfq (Bld) [#/Vol]0.0 10*3/uL Normal0.0-0.2[facility] Physician GroupComment on above:Result Comment: PERFORMED BY:[address] [place], [place] [phone] MEDICAL DIRECTORVÍCTOR LUCERO M.D. Performed By: #### PTT, CMP, PT, CBC, CK, PRL, HS TROP ####[place] [id number] USABasophils/100 WBC (Bld)0.4 % Normal.The [facility] Physician GroupComment on above:Performed By: #### PTT, CMP, PT, CBC, CK, PRL, HS TROP ####[place] [id number] USAEosinophils (Bld) [#/Vol]0.0 10*3/uLNormal0.0-0.45 [facility] Physician GroupComment on above:Performed By: #### PTT, CMP, PT, CBC, CK, PRL, HS TROP ####[place] [address] USAEosinophils/100 WBC (Bld)0.1 %Normal.The [facility] Physician GroupComment on above:Performed By: #### PTT, CMP, PT, CBC, CK, PRL, HS TROP ####[address] Erythrocyte distribution width (RBC) [Ratio]13.6 %Yjeevv18.0-14.8The [facility] Physician GroupComment on above:Performed By: #### PTT, CMP, PT, CBC, CK, PRL, HS TROP ####[address] Hematocrit (Bld) [Volume fraction]46.4 %Csyfzx98.8-50.0The [facility] Physician GroupComment on above:Performed By: #### PTT, CMP, PT, CBC, CK, PRL, HS TROP ####[address] Hemoglobin (Bld) [Mass/Vol]15.6 g/hCPkybik69.0-17.0[facility] Comment on above:Performed By: #### PTT, CMP, PT, CBC, CK, PRL, HS TROP ####[address] Lymphocytes (Bld) [#/Vol]0.4 10*3/uLLow1.00-4.8[facility] Comment on above:Performed By: #### PTT, CMP, PT, CBC, CK, PRL, HS TROP ####[address] Lymphocytes/100 WBC (Bld)4.4 %Normal.[facility] Physician GroupComment on above:Performed By: #### PTT, CMP, PT, CBC, CK, PRL, HS TROP ####[address] StreetMCH (RBC) [Entitic mass]28.8 xdMkejdy64.5-35.2The [facility] Physician GroupComment on above: Performed By: #### PTT, CMP, PT, CBC, CK, PRL, HS TROP ####[address]MCV (RBC) [Entitic vol]85.6 fL Bhjjmh87.5-101The [facility] Physician GroupComment on above:Performed By: #### PTT, CMP, PT, CBC, CK, PRL, HS TROP ####[place] [address] USAMean Corpuscular HGB Conc33.6 g/oRGmomyu36.5-35.6The [facility] Physician GroupComment on above:Performed By: #### PTT, CMP, PT, CBC, CK, PRL, HS TROP ####[place] [address] USAMonocytes (Bld) [#/Vol]0.3 10*3/uLNormal0.0-0.8The [facility] Physician GroupComment on above:Performed By: #### PTT, CMP, PT, CBC, CK, PRL, HS TROP ####[place] [address] [place] Monocytes/100 WBC (Bld)15.39 %Normal0.00-20.00The [facility] Comment on above:Performed By: #### PTT, CMP, PT, CBC, CK, PRL, HS TROP ####[place] [address] [place] Monocytes/100 WBC (Bld)3.3 %Normal.The [facility] Physician GroupComment on above:Performed By: #### PTT, CMP, PT, CBC, CK, PRL, HS TROP ####[place] [address] USANeutrophils (Bld) [#/Vol]9.2 10*3/uLHigh1.8-7.7The [facility] Physician GroupComment on above: Performed By: #### PTT, CMP, PT, CBC, CK, PRL, HS TROP ####[place] [address] USANeutrophils/100 WBC (Bld)91.8 % Normal.The [facility] Physician GroupComment on above:Performed By: #### PTT, CMP, PT, CBC, CK, PRL, HS TROP ####[place] [address] USANRBC%0.1 /100{WBC}Normal0-0.5The [facility] Physician GroupComment on above:Performed By: #### PTT, CMP, PT, CBC, CK, PRL, HS TROP ####[place] [address] USAPlatelet mean volume (Bld) [Entitic vol]7.3 fLNormal6.6-10.1The [facility] Physician GroupComment on above:Performed By: #### PTT, CMP, PT, CBC, CK, PRL, HS TROP ####[place] [address] [place] Platelets (Bld) [#/Vol]280 10*3/hEQtvmoe001-122Qog [facility] Comment on above:Performed By: #### PTT, CMP, PT, CBC, CK, PRL, HS TROP ####[place] [address] USARBC (Bld) [#/Vol]5.42 10*6/uLNormal3.90-5.60The [facility] Physician GroupComment on above:Performed By: #### PTT, CMP, PT, CBC, CK, PRL, HS TROP ####[place] [address] USAWBC (Bld) [#/Vol]10.1 10*3/uLNormal4.1-10.5The [facility] Physician GroupComment on above:Performed By: #### PTT, CMP, PT, CBC, CK, PRL, HS TROP ####[place] [address] USAComprehensive Metabolic Panelon 11-17-2024 Albumin [Mass/Vol]4.2 g/dLNormal3.5-5.7The [facility] Physician GroupComment on above:Performed By: #### PTT, CMP, PT, CBC, CK, PRL, HS TROP ####[address] [place] [address] USAAlbumin/Globulin [Mass ratio]1.7 {ratio}NormalThe [facility] Physician GroupComment on above:Performed By: #### PTT, CMP, PT, CBC, CK, PRL, HS TROP ####[place] [address] USAALP [Catalytic activity/Vol]95 U/L Yowqdz74-303Oxu [facility] Physician GroupComment on above:Performed By: #### PTT, CMP, PT, CBC, CK, PRL, HS TROP ####[place] [address] USAALT [Catalytic activity/Vol]12 U/LNormal7-52The [facility] Physician GroupComment on above:Performed By: #### PTT, CMP, PT, CBC, CK, PRL, HS TROP ####[place] [address] USAAnion gap [Moles/Vol]13.0 mmol/LNormal6.0-15.0The [facility] Physician GroupComment on above:Performed By: #### PTT, CMP, PT, CBC, CK, PRL, HS TROP ####[place] [address] USAAST [Catalytic activity/Vol]24 U/UTkpzws06-69Uph [facility] Physician GroupComment on above:Performed By: #### PTT, CMP, PT, CBC, CK, PRL, HS TROP ####[place] [address] USABilirubin [Mass/Vol] 0.6 mg/dLNormal0.3-1.0The [facility] Physician GroupComment on above:Performed By: #### PTT, CMP, PT, CBC, CK, PRL, HS TROP ####[place] [address] USACalcium [Mass/Vol]9.1 mg/dLNormal 8.6-10.3The [facility] Physician GroupComment on above:Performed By: #### PTT, CMP, PT, CBC, CK, PRL, HS TROP ####[place] [address] [place] [id number] USAChloride [Moles/Vol]104 mmol/MKdzuqy55-057Lug [facility] Physician GroupComment on above:Performed By: #### PTT, CMP, PT, CBC, CK, PRL, HS TROP ####[place] [address] [place] [id number] USACO2 [Moles/Vol]29.2 mmol/PVplnvw52.0-31.0The [facility] Comment on above:Performed By: #### PTT, CMP, PT, CBC, CK, PRL, HS TROP ####[place] [address] [place] [address] [place] Creatinine [Mass/Vol]1.27 mg/dLNormal0.70-1.30The [facility]ician [facility] Comment on above:Performed By: #### PTT, CMP, PT, CBC, CK, PRL, HS TROP ####[place] [id number] USAGFR/1.73 sq M.predicted MDRD (S/P/Bld) [Vol rate/Area]mL/min/{1.73_m2}NormalThe [facility] Physician GroupComment on above:Performed By: #### PTT, CMP, PT, CBC, CK, PRL, HS TROP ####[place] [id number] USAGlobulin (S) [Mass/Vol]2.5 g/dLNormalThe [facility] Comment on above:Performed By: #### PTT, CMP, PT, CBC, CK, PRL, HS TROP ####[place] [id number] USAGlucose [Mass/Vol]163 mg/dGOits95-018Fcr [facility] Physician GroupComment on above: Result Comment: Random Glucose Reference Range is dependent on time and content of last meal. Glucose of more than 200 mg/dL in a nonstressed, ambulatory subject supports the diagnosis of Diabetes Mellitus. ADA recommended reference rangePerformed By: #### PTT, CMP, PT, CBC, CK, PRL, HS TROP ####[place] [address] [place] [address] USAPotassium [Moles/Vol] 4.2 mmol/LNormal3.5-5.1The [facility] Physician GroupComment on above:Performed By: #### PTT, CMP, PT, CBC, CK, PRL, HS TROP ####[place] [address] [place] [address] USAProtein [Mass/Vol]6.7 g/dLNormal6.4-8.9 The [facility] Physician GroupComment on above:Performed By: #### PTT, CMP, PT, CBC, CK, PRL, HS TROP ####[place] [address] [place] [address] USASodium [Moles/Vol]142 mmol/GXgbhbz219-458Itk [facility] Physician GroupComment on above:Performed By: #### PTT, CMP, PT, CBC, CK, PRL, HS TROP ####[place] [address] USAUrea nitrogen [Mass/Vol]16 mg/dLNormal7-25The [facility] Comment on above:Performed By: #### PTT, CMP, PT, CBC, CK, PRL, HS TROP ####[place] [id number] USACreatine Kinaseon 33-52-9834SJ [Catalytic activity/Vol]134 U/KNhoiou71-497Jbc [facility] Physician GroupComment on above:Performed By: #### PTT, CMP, PT, CBC, CK, PRL, HS TROP ####[place] [address] [place] Creatine kinase [Enzymatic activity/volume] in Serum or PlasmaOrdered By: Jamin Sepulveda on 07-99-3328CU [Catalytic activity/Vol]Creatine kinase [Enzymatic activity/volume] in Serum or Ttvtno42-629KkttmvlgsDunlap Memorial Hospital Dipstick and Microscopicon 53-61-2662Dzoyuztidu (U)ClearNormalClearThe [facility] Physician GroupComment on above:Order Comment: Name Collection Type:: Clean- Voided MidstreamPerformed By: #### URDS, ADDONUAPLUS ####[address] [place] [address] USABacteria,UrineNone SeenNormal None SeenHca Florida Plantation Emergency Physician GroupComment on above:Order Comment: Name Collection Type:: Clean-Voided MidstreamPerformed By: #### URDS, ADDONUAPLUS ####[address] [address] [place] Bilirubin,UrineNegativeNormalNegativeHca Florida Plant[facility] Emergency Physician GroupComment on above:Order Comment: Name Collection Type:: Clean-Voided MidstreamPerformed By: #### URDS, ADDONUAPLUS ####[address] [address] USAColor (U)YellowNormalYellowHca Florida Plantation Emergency Physician GroupComment on above:Order Comment: Name Collection Type:: Clean-Voided MidstreamPerformed By: #### URDS, ADDONUAPLUS ####[address] [address] USAGlucose Ql (U)70 mg/dLHighNormTGH Spring Hill Physician GroupComment on above:Order Comment: Name Collection Type:: Clean-Voided MidstreamPerformed By: #### URDS, ADDONUAPLUS ####[address] [address] USAHyaline Casts,Urine NoneNormal0-8The [facility] Physician GroupComment on above:Order Comment: Name Collection Type:: Clean-Voided MidstreamPerformed By: #### URDS, ADDONUAPLUS ####[address] [place] [address] USAKetones Ql (U)NegativeNormalNegativeHca [facility] Emergency Physician GroupComment on above:Order Comment: Name Collection Type:: Clean-Voided MidstreamPerformed By: #### URDS, ADDONUAPLUS ####[address] [address] USALeukocyte esterase Test strip Ql (U)NegativeNormalNegativeHca Florida [facility] Emergency Physician GroupComment on above:Order Comment: Name Collection Type:: Clean- Voided MidstreamPerformed By: #### URDS, ADDONUAPLUS ####[address] [address] USAMucus,UrineRareNormalThe [facility] Physician GroupComment on above:Order Comment: Name Collection Type:: Clean-Voided MidstreamResult Comment: PERFORMED BY:[address] [place], [place] [phone] MEDICAL DIRECTORVÍCTOR LUCERO M.D.Performed By: #### URDS, ADDONUAPLUS ####[address] [address] [place] Nitrite,UrineNegativeNormalNegativeThe [facility] Physician GroupComment on above:Order Comment: Name Collection Type:: Clean-Voided MidstreamPerformed By: #### URDS, ADDONUAPLUS ####[address] [address] USAOccult Blood,UrineNegativeNormalNegativeThe [facility] Physician GroupComment on above:Order Comment: Name Collection Type:: Clean-Voided MidstreamPerformed By: #### URDS, ADDONUAPLUS ####[address] [address] USApH (U)6.5 [pH]Normal 5.0-9.0The [facility] Physician GroupComment on above:Order Comment: Name Collection Type:: Clean-Voided MidstreamPerformed By: #### URDS, ADDONUAPLUS ####[address] [address] USAProtein (U) [Mass/Vol]70 mg/dLHighNegativeThe [facility] Physician GroupComment on above:Order Comment: Name Collection Type:: Clean-Voided MidstreamPerformed By: #### URDS, ADDONUAPLUS ####[address] [address] USARBC,Urine3 [HPF]Normal0-4The [facility] Physician GroupComment on above:Order Comment: Name Collection Type:: Clean-Voided MidstreamPerformed By: #### URDS, ADDONUAPLUS ####[address] [address] USASpecificy Watkins,Urine>1.050High 1.001-1.030The [facility] Physician GroupComment on above:Order Comment: Name Collection Type:: Clean-Voided MidstreamResult Comment: Rechecked by refractometerPerformed By: #### URDS, ADDONUAPLUS ####[address] [address] USASquamous Epithelial Cell,Urine1 [HPF] Normal0-2The [facility] Physician GroupComment on above:Order Comment: Name Collection Type:: Clean-Voided MidstreamPerformed By: #### URDS, ADDONUAPLUS ####[address] [address] [place] Urobilinogen,UrineNormalNormalNormalThe [facility] Physician GroupComment on above:Order Comment: Name Collection Type:: Clean-Voided MidstreamPerformed By: #### URDS, ADDONUAPLUS ####[address] [address] USAWBC,Urine1 [HPF]Normal0-4The [facility] Physician GroupComment on above:Order Comment: Name Collection Type:: Clean-Voided MidstreamPerformed By: #### URDS, ADDONUAPLUS ####[address] [address] USADrug Screen,Urineon 11-17-2024 Amphetamine Screen,UrinePositiveHighNegativeThe [facility] Physician GroupComment on above:Performed By: #### URDS, ADDONUAPLUS ####[address] [address] USABarbiturate Screen,UrineNegativeNormal NegativeThe [facility] Physician GroupComment on above:Performed By: #### URDS, ADDONUAPLUS ####[address] [address] USABenzodiazepines Screen,UrinePositiveHighNegativeThe [facility] Physician GroupComment on above:Performed By: #### ОЛЬГА, ADDONUAPLUS ####[address] [address] USACannabinoid Screen,UrinePositiveHighNegativeHca Florida [facility] Emergency Physician [facility] Regional HospitalComment on above: Result Comment: These are unconfirmed results and should not be used for legal purposes. Drug Cut-Off Concentration: AMPH 1000 ng/mL BHASKAR 200 ng/mL RIKKI 200 ng/mL COCM 300 ng/mL OP 300 ng/mL PCP 25 ng/mL THC 20 ng/mLPERFORMED BY:[address] [place], [place] [phone] MEDICAL DIRECTORVÍCTOR LUCERO M.D.Performed By: #### ОЛЬГА, ADDONUAPLUS ####[place] [id number] USACocaine Screen,UrineNegativeNormalNegativeThe [facility]ician [facility] HospitalComment on above:Performed By: #### ОЛЬГА, ADDONUAPLUS ####[address] [address] USAOpiate Screen,Urine NegativeNormalNegativeThe [facility] Medical CenterComment on above:Performed By: #### ОЛЬГА, ADDONUAPLUS ####[address] [address] USAPhencyclidine Screen,UrineNegativeNormalNegativeThe [facility] Medical CenterComment on above:Performed By: #### ОЛЬГА, ADDONUAPLUS ####[address] [address] USAECG 12 lead ECGon 16-90-6974SKV 12 lead ECGNormalThe [facility] Epithelial cells.squamous [#/area] in Urine sediment by Automated countOrdered By: Jamin Sepulveda on 73-53-7981Jykbjigvbd cells.squamous Auto (Urine sed) [#/Area]Epithelial cells.squamous [#/area] in Urine sediment by Automated count 0-2FChillicothe VA Medical CenterErythrocyte Sedimentation Rateon 11-17-2024 ESR (Bld) [Velocity]2 mm/hNormal0-19[facility] Physician GroupComment on above:Result Comment: PERFORMED BY:[address] [address] [address] [place], [place] [phone] MEDICAL DIRECTORVÍCTOR ARSHAD M.D.Performed By: #### B12, ESR, HS TROP ####[address] [address] USAErythrocyte sedimentation rate by Photometric methodOrdered By: Chaz Frey on 02-52-2104MVM Photometric method (Bld) [Velocity]Erythrocyte sedimentation rate by Photometric method0 [facility] HospitalErythrocytes [#/area] in Urine sediment by Automated countOrdered By: Jamin Sepulveda on 16-56-2954FLU Auto (Urine sed) [#/Area]Erythrocytes [#/area] in Urine sediment by Automated count0Chillicothe VA Medical CenterEthanol [Mass/volume] in Serum or PlasmaOrdered By: Jamin Sepulveda on 30-49-4379Qsfzahf [Mass/Vol]Ethanol [Mass/volume] in Serum or PlasmaDunlap Memorial HospitalComment on above:Test not performedEthyl Alcohol Profileon 17-32-2651Qcnecqf [Mass/Vol]mg/dLNoPending sale to [facility] Physician GroupComment on above:Performed By: #### ETOH ####[address] [address] USAPercent EthanolNot performedNoPending sale to [facility] Physician GroupComment on above:Result Comment: PERFORMED BY:[address] [address] [address] [place], [place] [phone] MEDICAL DIRECTORVÍCTOR LUCERO M.D.Performed By: #### ETOH ####[address] [address] USAGlucose Glucometer (BldC) [Mass/Vol]Ordered By: Jamin Sepulveda on 42-19-2213Wiunuxj [Mass/Vol]Capillary blood glucose measurement by glucometer (mass/volume) [facility] HospitalComment on above:Random Glucose Reference Range is dependent on time and content of last meal. Glucose of more than 200 mg/dL in a nonstressed, ambulatory subject supports the diagnosis of Diabetes Mellitus.Glucose Poct Glucometerson 30-69-7903Nmsdbmf [Mass/Vol]175 mg/dLNormal [facility] Physician GroupComment on above:Result Comment: Random Glucose Reference Range is dependent on time and content of last meal. Glucose of more than 200 mg/dL in a nonstressed, ambulatory subject supports the diagnosis of Diabetes Mellitus.PERFORMED BY:[address] [place], [place] [phone] MEDICAL DIRECTORVÍCTOR ARSHAD M.D.Performed By: #### GLULS ####Point of Care testing,Glucose [Mass/volume] in Urine by Test stripOrdered By: Jamin Sepulveda on 11-17-2024 Glucose Test strip (U) [Mass/Vol]Glucose [Mass/volume] in Urine by Test strip HighMagruder HospitalHemoglobin Test strip Ql (U)Ordered By: Jamin Sepulveda on 13-67-1110Bkpvyndtwv Ql (U)Hemoglobin [Presence] in Urine by Test stripNegSt. Vincent HospitalHyaline casts [#/area] in Urine sediment by Automated countOrdered By: Jamin Sepulveda on 67-90-5788Zxmpdnz casts Auto (Urine sed) [#/Area]Hyaline casts [#/area] in Urine sediment by Automated count0-8[facility] HospitalINR in Platelet poor plasma by Coagulation assayOrdered By: Jamin Sepulveda on 04-20-1482KAY Coag (PPP) [Relative time]INR in Platelet poor plasma by Coagulation assayDunlap Memorial HospitalComment on above:INR Therapeutic Range A) Pre- and Peroperative OAT started two weeks before surgery. NOT HIP SURGERY: 1.5 - 2.5 HIP SURGERY: 2 - 3B) Primary and secondary prevention of venous THROMBOSIS: 2 - 3C) Active venous thrombosis, pulmonary embolismand prevention of recurrent venous thrombosis: 2 - 3D) Prevention of arterial thromboembolismincluding patients with mechanical heart valves: 3 - 4.5Ketones Test strip Ql (U)Ordered By: Jamin Sepulveda on 44-29-4956Cuypcts Ql (U)Ketones [Presence] in Urine by Test stripNegativeDunlap Memorial HospitalLeukocyte esterase [Presence] in Urine by Test stripOrdered By: Jamin Sepulveda on 09-66-7211Xkovlvtff esterase Test strip Ql (U)Leukocyte esterase [Presence] in Urine by Test stripNegative [facility] HospitalLeukocytes [#/area] in Urine sediment by Automated countOrdered By: Jamin Sepulveda on 39-40-1280VSV Auto (Urine sed) [#/Area]Leukocytes [#/area] in Urine sediment by Automated count0-4FChillicothe VA Medical CenterMagnesiumon 92-57-8535Otgkodqgf [Mass/Vol]1.9 mg/dLNormal 1.9-2.7[facility] Physician GroupComment on above:Order Comment: Comment add onResult Comment: PERFORMED BY:[facility] [place] [address] [place], [place] [phone] MEDICAL DIRECTORVÍCTOR ARSHAD M.D.Performed By: #### MG ####[address] [address] USAMagnesium [Mass/volume] in Serum or PlasmaOrdered By: Chaz Palafox on 06-19-4801Splvtdkzv [Mass/Vol]Magnesium [Mass/volume] in Serum or Plasma1.9-2.7FChillicothe VA Medical CenterMethamphetamine [Presence] in UrineOrdered By: Chaz Frey on 92-72-7550Gdilpkcvwugkohn Ql (U) Methamphetamine [Presence] in UrineAbnormal.[facility] Methamphetamine cutoff [Mass/volume] in Urine for Confirmatory methodOrdered By: Chaz Frey on 66-94-5983Pobnjtnloentdqi cutoff Confirm (U) [Mass/Vol] Methamphetamine cutoff [Mass/volume] in Urine for Confirmatory dooafzNifrag=888 [facility] HospitalMonocyte distribution width [Entitic volume] in Blood by AutomatedOrdered By: Jamin Sepulveda on 03-84-8061Qbxzawbf distribution width Auto (Bld) [Entitic vol]Monocyte distribution width [Entitic volume] in Blood by Automated0.00-20.00[facility] HospitalMucus [Presence] in Urine by AutomatedOrdered By: Jamin Sepulveda on 33-78-0655Rlabu Auto Ql (U)Mucus [Presence] in Urine by AutomatedDunlap Memorial HospitalNitrite Test strip Ql (U)Ordered By: Jamin Sepulveda on 48-20-4039Vpaswcu Ql (U)Nitrite [Presence] in Urine by Test stripNegSt. Vincent Hospital Opiates [Presence] in UrineOrdered By: Chaz Frey on 15-07-4075Iwmotxj Ql (U) Opiates [Presence] in DfzjaYjrlit=676BnwrbbchcDunlap Memorial HospitalComment on above:Opiate test includes Codeine and Morphine only.Opiates [Presence] in Urine by Screen methodOrdered By: Jamin Sepulveda on 22-11-0894Nzgnrcr Screen Ql (U)Opiates [Presence] in Urine by Screen methodNegSt. Vincent HospitalPartial Thromboplastin Timeon 41-42-4672iBGU Coag (Bld) [Time]22.3 sLow25.1-36.5The [facility] Physician GroupComment on above:Result Comment: A hematocrit value greater than 55% may lead to inaccurate results in coagulation testing. Patients having hematocrit values >55% require a special collection tube for coagulation studies. Please contact the laboratory at [phone] for redraw instructions.PERFORMED BY:[address] [address] [address] [place]AWE[place], [place] [phone] MEDICAL DIRECTORVÍCTOR ARSHAD M.D.Performed By: #### PTT, CMP, PT, CBC, CK, PRL, HS TROP ####[address] [address] [facility] Phencyclidine Screen Ql (U)Ordered By: Jamin Sepulveda on 48-53-0055Ezhjsxlbhvimc Ql (U)Phencyclidine [Presence] in Urine by Screen methodNegSt. Vincent HospitalPhencyclidine [Presence] in UrineOrdered By: Chaz Frey on 68-98-9339Hdhweapajmlrq Ql (U)Phencyclidine [Presence] in Urine Cutoff=25[facility] HospitalComment on above:Performed at: - [facility] [address] [place], [place] [id number] Director: Adenike Panchal PhD, Phone: [phone] 27-67-9165Wtjuekyqn23.22 ng/mLHigh 2.64-13.13The [facility] Regional HospitalComment on above:Result Comment: PERFORMED BY:[address] [place], [place] [phone] MEDICAL DIRECTORVÍCTOR LUCERO M.D. Performed By: #### PTT, CMP, PT, CBC, CK, PRL, HS TROP ####[address] [place] [address] USAProtein Test strip (U) [Mass/Vol]Ordered By: Jamin Sepulveda on 60-55-4867Glenxep (U) [Mass/Vol]Protein [Mass/volume] in Urine by Test stripHighNegativeDunlap Memorial HospitalProthrombin Time INRon 06-81-7845DYW Coag (PPP) [Relative time]1.0 {INR} NormalThe [facility] Physician Trace Regional HospitalComment on above:Result Comment: INR Therapeutic Range A) Pre- and [...] patients with mechanical heart valves: 3 - 4.5Performed By: #### PTT, CMP, PT, CBC, CK, PRL, HS TROP ####[address] [address] USAPT Coag (PPP) [Time]11.9 s Normal9.0-12.9The [facility] Physician GroupComment on above:Result Comment: A hematocrit value greater than 55% may lead to inaccurate results in coagulation testing. Patients having hematocrit values >55% require a special collection tube for coagulation studies. Please contact the laboratory at [phone] for redraw instructions.Performed By: #### PTT, CMP, PT, CBC, CK, PRL, HS TROP ####[address] [place] [address] [facility] Prothrombin time (PT)Ordered By: Jamin Sepulveda on 45-96-6114WH Coag (PPP) [Time] Prothrombin time (PT)9.0-12.9[facility] HospitalComment on above:A hematocrit value greater than 55% may lead to inaccurate results in coagulation testing. Patientshaving hematocrit values >55% require a special collection tube for coagulation studies. Please contact the laboratory at [phone] for redraw instructions.Specific gravity of Urine by RefractometryOrdered By: Jamin Sepulveda on 29-02-8538Qsgxvugd gravity Refractometry (U) [Rel density] Specific gravity of Urine by RefractometryHigh1.001-1.030[facility] HospitalComment on above:Rechecked by refractometerTroponin I High Sensitivityon 40-22-0607Hkeaffst I High Ojtmbmsdfnb36.7 pg/mLHigh0.0-20.0The [facility] Physician GroupComment on above:Result Comment: PERFORMED BY:[address] LIZARRAGAWE[place], [place] [phone] MEDICAL DIRECTORVÍCTOR LUCERO M.D.Performed By: #### B12, ESR, HS TROP ####[address] [place] [phone] [facility] Troponin I High Kupapgaanlm35.1 pg/mLHigh0.0-20.0The [facility] Physician Group Comment on above:Result Comment: PERFORMED BY:[address] LIZARRAGAWE[place], [place] [phone] MEDICAL DIRECTORVÍCTOR JONESPAVITHRA RichPerformed By: #### PTT, CMP, PT, CBC, CK, PRL, HS TROP ####[facility] [address] [place] [phone] [facility] HOSPITALUrine Drug Screen w/Confirmon 73-70-9970Rzmfxahwtkkc GC/MS Confirm, Ur 527 ng/iHMwurcnHulinm=900Jeb [facility] Physician GroupComment on above:Performed By: #### UDS SCRN wRFX ####[facility] ,Amphetamines, UrSee Final XxwgnitCkbavoUcejrd=5925Fvr [facility] Physician GroupComment on above:Result Comment: Amphetamine test includes Amphetamine and Methamphetamine.Performed By: #### UDS SCRN wRFX ####[facility] ,Amphetamines, UrPositiveCritically abnormal.The [facility] Physician GroupComment on above:Result Comment: Amphetamine test includes Amphetamine and Methamphetamine.Performed By: #### UDS SCRN wRFX ####[facility] ,Barbiturate, SqMnkokqjdNpwisxDdaawr=236Ujt [facility] Physician GroupComment on above:Performed By: #### UDS SCRN wRFX ####[facility] ,Benzodiazepines, UrSee Final EyojhmbUzmkqyCjzguq=922 The [facility] Physician GroupComment on above:Performed By: #### UDS SCRN wRFX ####[facility] ,Benzodiazepines, JbknxPqhnoslvHimjivNypkki=892Wec [facility] Physician GroupComment on above:Performed By: #### UDS SCRN wRFX ####[facility] ,Cannabinoid, UrSee Final ResultsNormalCutoff=50The [facility] Physician GroupComment on above:Performed By: #### UDS SCRN wRFX ####[facility] ,Cannabinoid, UrineNegativeNormalCutoff=50The [facility] Physician GroupComment on above:Result Comment: PERFORMED BY:[facility] [place], [place] [phone] MEDICAL DIRECTORVÍCTOR LUCERO M.D.Performed By: #### UDS SCRN wRFX ####[facility] ,Cocaine (Metab), OsIbxjmmkhJaciyxGngtrs=100Elo [facility] Physician GroupComment on above:Performed By: #### UDS SCRN wRFX ####[facility] ,MethamphetaminePositiveCritically abnormal.The [facility] Physician GroupComment on above:Performed By: #### UDS SCRN wRFX ####[facility] ,Methamphetamines GC/MS, Ur>2508CckutgXymkuz=352Rfx [facility] Physician GroupComment on above:Performed By: #### UDS SCRN wRFX ####[facility] ,Opaites, VqZidgiribHevrggEhuzgs=480Euu [facility] Physician Group Comment on above:Result Comment: Opiate test includes Codeine and Morphine only. Performed By: #### UDS SCRN wRFX ####[facility] ,Phencyclidine, Ur NegativeNormalCutoff=25The [facility] Physician GroupComment on above:Result Comment: Performed at: [facility]Saint [facility] [address] [place], [place] [id number] Data Base Design Analyst: Adenike Panchal PhD, Phone: [phone] By: #### UDS SCRN wRFX ####[facility] ,Urine cocaine metabolite detectionOrdered By: Chaz Frey on 23-64-0674Qvknbntwqpvvzfb Ql (U)Urine cocaine metabolite crjzkkqsxSlsayt=960BtdrlxqcyDunlap Memorial HospitalUrobilinogen Test strip (U) [Mass/Vol]Ordered By: Jamin Sepulveda on 19-04-9443Hmoofvndorrb (U) [Mass/Vol] Urobilinogen [Mass/volume] in Urine by Test stripNoMarion HospitalVitamin B12on 04-57-1720Kplpevwzr (Vitamin B12) [Mass/Vol]313 pg/oKVwzhsu609-204Elq [facility] Physician GroupComment on above:Result Comment: PERFORMED BY:[facility] [place], [place] [phone] MEDICAL DIRECTORVÍCTOR LUCERO M.D. Performed By: #### B12, ESR, HS TROP ####[facility] [address] [place] [address] [facility] HOSPITALVitamin B12 ser/plasOrdered By: Chaz Frey on 63-39-5443Qbysphhzp (Vitamin B12) [Mass/Vol]Vitamin B12 ser/pxfo377-418 [facility] HospitalX-ray reportOrdered By: Dung Chakraborty on 48-79-4777Ypejn reportFIRMARION HOSPITAL [facility] [place] [address] [place], [place] [address] XRay Report Signed Patient: Aaron Olivarez MR#: [id number] : 1960 Acct:[id number] Age/Sex: 64 / M ADM Date: 5 Loc: Room: [address] [place] [address] Type: ADM INOo Attending Dr: Chaz Frey [...] clear. The bony thorax is intact. Remote left- sided rib fractures are noted. XR/XR chest 1V portable IMPRESSION: No acute cardiopulmonary pathology. Impression dictated by: Dung Chakraborty M.D.11/17/2024 1:26 PM Dictation Location: [place] [address] Transcribed By: [facility] 11/17/24 1326 Dictated By: Dung Chakraborty II, MD 11/17/24 1326 Signed By: 11/17/24 1326 [facility] Work Phone: XR chest 1V portableon 70-95-3369SH chest 1V portable NormalThe [facility] Physician GroupaPTT in Platelet poor plasma by Coagulation assayOrdered By: Jamin Sepulveda on 42-95-8019sBKA Coag (PPP) [Time]Activated partial thromboplastin time (aPTT) in platelet poor plasma by coagulation aLow 25.1-36.5FChillicothe VA Medical CenterComment on above:A hematocrit value greater than 55% may lead to inaccurate results in coagulation testing. Patients having hematocrit values >55% require a special collection tube for coagulation studies. Please contact the laboratory at [phone] for redraw instructions. pH Test strip (U)Ordered By: Jamin Sepulveda on 73-57-9470bL (U)pH of Urine by Test strip5.0-9.0[facility] HospitalCB with Diffon 09-61-7909Qve. Basophil0.04 k/uLNormal0.00-0.20[facility]opedic CenterComment on above:Performed By: #### CDP, CMPX, MG #### [facility] [employer] [address] [place] [address] Data Base Design Analyst: Olya Barrera.Imm.Granulocyte<0.35Syzfkc1.00-0.30[facility] Orthopedic CenterComment on above:Performed By: #### CDP, CMPX, MG #### [facility] [employer] [address] [place] [address] Data Base Design Analyst: Olya Barrera.Neutrophil (Seg)3.52 k/uLNormal1.50-8.10 [facility] CenterComment on above:Performed By: #### CDP, CMPX, MG #### [place] [address] Data Base Design Analyst: Dario Almanza MDBasophils/100 WBC (Bld)1 %Normal0-2MBear Valley Community HospitalComment on above:Performed By: #### CDP, CMPX, MG #### [facility] [employer] [address] [place] [address] Data Base Design Analyst: Dario Almanza MDEosinophils (Bld) [#/Vol]0.03 10*3/uLNormal 0.00-0.44[facility] CenterComment on above:Performed By: #### CDP, CMPX, MG #### [facility] [employer] [address] [place] [address] Data Base Design Analyst: KEATON Barreraosinophils/100 WBC (Bld)1 %Normal1-4[facility]opedic CenterComment on above:Performed By: #### CDP, CMPX, MG #### [facility] [address] [place] [address] Data Base Design Analyst: Dario Almanza MDErythrocyte distribution width (RBC) [Ratio]13.1 %Lefxki59.8-14.4[facility] CenterComment on above:Performed By: #### CDP, CMPX, MG #### [place] [address] Data Base Design Analyst: Dario Almanza MDHematocrit (Bld) [Volume fraction]42.4 %Normal 40.7-50.3Macmc healthcare [facility] glenbeighy Community Medical Center-ClovisComment on above:Performed By: #### CDP, CMPX, MG #### [place] [address] Data Base Design Analyst: Dario Almanza MDHemoglobin (Bld) [Mass/Vol]13.7 g/dLNormal 13.0-17.0[facility] CenterComment on above:Performed By: #### CDP, CMPX, MG #### [address] [address] Data Base Design Analyst: Dario Almanza MDImmature granulocytes/100 WBC (Bld)0 %Normal0 [facility]opedic CenterComment on above:Performed By: #### CDP, CMPX, MG #### [place] [address] Data Base Design Analyst: Dario Almanza MDLymphocytes (Bld) [#/Vol]1.19 10*3/uLNormal 1.10-3.70[facility] CenterComment on above:Performed By: #### CDP, CMPX, MG #### [facility] [employer] [address] [place] [address] Data Base Design Analyst: Mis Barreramphocytes/100 WBC (Bld)22 %Wlx19-13HihsiCrystal Clinic Orthopedic CenterComment on above:Performed By: #### CDP, CMPX, MG #### [facility] [address] [place] [address] Data Base Design Analyst: ELISABETH BarreraCH (RBC) [Entitic mass]29.6 vxZnvscq54.2-33.5 [facility]opedic CenterComment on above:Performed By: #### CDP, CMPX, MG #### [facility] [address] [place] [address] Data Base Design Analyst: ELISABETH BarreraCHC (RBC) [Mass/Vol]32.3 g/iTMdxsle14.4-34.8 [facility] CenterComment on above:Performed By: #### CDP, CMPX, MG #### [address] [address] Data Base Design Analyst: ELISABETH BarreraCV (RBC) [Entitic vol]91.6 aQWgtudw70.6-102.9 [facility] CenterComment on above:Performed By: #### CDP, CMPX, MG #### [facility] [employer] [address] [place] [address] Data Base Design Analyst: ELISABETH Barreraonocytes (Bld) [#/Vol]0.61 10*3/uLNormal 0.10-1.20[facility] CenterComment on above:Performed By: #### CDP, CMPX, MG #### [facility] [employer] [address] [place] [address] Data Base Design Analyst: ELISABETH Barreraonocytes/100 WBC (Bld)11 %Normal3-12[facility] CenterComment on above:Performed By: #### CDP, CMPX, MG #### [facility] [employer] [address] [place] [address] Data Base Design Analyst: Dario Almanza MDNeutrophil (Seg)65 %Nsfmug23-37OtfevCrystal Clinic Orthopedic CenterComment on above:Performed By: #### CDP, CMPX, MG #### [address] [address] Data Base Design Analyst: BUNNY Barrera Automated0.0 per 100 WBCNormal0.0[facility] Orthopedic CenterComment on above:Performed By: #### CDP, CMPX, MG #### [address] [address] Data Base Design Analyst: Abida Barrera mean volume (Bld) [Entitic vol]9.2 fL Normal8.1-13.5[facility] Orthopedic CenterComment on above:Performed By: #### CDP, CMPX, MG #### [address] [address] Data Base Design Analyst: Christel Barreratekaity (Bld) [#/Vol]227 10*3/pRWbklng759-535 [facility]opedic CenterComment on above:Performed By: #### CDP, CMPX, MG #### [address] [address] Data Base Design Analyst: SOBIA Barrera (Bld) [#/Vol]4.63 10*6/uLNormal4.21-5.77 [facility] CenterComment on above:Performed By: #### CDP, CMPX, MG #### [address] [address] Data Base Design Analyst: DENTON Barrera (Bld) [#/Vol]5.4 10*3/uLNormal3.5-11.3MBear Valley Community HospitalComment on above:Performed By: #### CDP, CMPX, MG #### [address] [address] Data Base Design Analyst: Dario Madoff, MDComp Metabolic Pr/rfx MGon 18-86-7548Ymgzeqq [Mass/Vol]3.8 g/dLNormal3.5-5.2Mac[facility] glenbeighy [facility] Center-ClovisComment on above: Performed By: #### CDP, CMPX, MG #### [address] [address] Data Base Design Analyst: Dario Almanza MDAlbumin/Glob Ratio2.8Wxdkvi6.0-2.5[facility]opedic CenterComment on above:Performed By: #### CDP, CMPX, MG #### [address] [address] Data Base Design Analyst: Harsha Barrerakaline Iobc467 U/BUtheam91-313DmoqeCrystal Clinic Orthopedic CenterComment on above:Performed By: #### CDP, CMPX, MG #### [address] [address] Data Base Design Analyst: Dario Almanza MDALT [Catalytic activity/Vol]7 U/JDsh79-50VmtsuCrystal Clinic Orthopedic CenterComment on above:Performed By: #### CDP, CMPX, MG #### [address] [address] Data Base Design Analyst: Dario Almanza MDAnion gap [Moles/Vol]7 mmol/LLow9-16[facility]opedic CenterComment on above:Performed By: #### CDP, CMPX, MG #### [address] [address] Data Base Design Analyst: Dario Almanza MDAST [Catalytic activity/Vol]20 U/BEclcvn71-85 [facility]opedic CenterComment on above:Performed By: #### CDP, CMPX, MG #### [facility] [employer] [address] [place] [address] Data Base Design Analyst: Dario Almanza MDBilirubin [Mass/Vol]0.6 mg/dLNormal0.00-1.20 [facility] CenterComment on above:Performed By: #### CDP, CMPX, MG #### [facility] [employer] [address] [place] [address] Data Base Design Analyst: NEHEMIAS Barreraalcium [Mass/Vol]9.3 mg/dLNormal8.6-10.4[facility] CenterComment on above:Performed By: #### CDP, CMPX, MG #### [facility] [employer] [address] [place] [address] Data Base Design Analyst: NEHEMIAS Barrerahloride [Moles/Vol]103 mmol/AVozbar86-625IchfkCrystal Clinic Orthopedic CenterComment on above:Performed By: #### CDP, CMPX, MG #### [address] [address] Data Base Design Analyst: Dario Almanza MDCO2 [Moles/Vol]28 mmol/ZQjasps50-36DbqsfCrystal Clinic Orthopedic CenterComment on above:Performed By: #### CDP, CMPX, MG #### [facility] [employer] [address] [place] [address] Data Base Design Analyst: NEHEMIAS Barrerareatinine [Mass/Vol]0.9 mg/dLNormal0.70-1.20 [facility] CenterComment on above:Performed By: #### CDP, CMPX, MG #### [place] [address] Data Base Design Analyst: Dario Almanza MDGFR/1.73 sq M.predicted among non-blacks MDRD (S/P/Bld) [Vol rate/Area]mL/min/{1.73_m2}Normal>60[facility] Orthopedic CenterComment on above:Result Comment: These results are not intended for [...] or following therapy that affects renal tubular secretion.Performed By: #### CDP, CMPX, MG #### [facility] [address] [place] [address] Data Base Design Analyst: Dario Almanza MDGlucose [Mass/Vol]95 mg/gTCgcwqd90-56DcmgnBear Valley Community HospitalComment on above:Performed By: #### CDP, CMPX, MG #### [facility] [address] [place] [address] Data Base Design Analyst: Dario Almanza MDPotassium [Moles/Vol]3.4 mmol/LLow3.7-5.3MBear Valley Community HospitalComment on above:Performed By: #### CDP, CMPX, MG #### [place] [address] Data Base Design Analyst: Dario Almanza MDProtein [Mass/Vol]5.8 g/dLLow6.6-8.7C[facility] Orthopedic CenterComment on above:Performed By: #### CDP, CMPX, MG #### [facility] [address] [place] [address] Data Base Design Analyst: Dario Almanza MDSodium [Moles/Vol]138 mmol/FYhrvfs136-761JxtgdCrystal Clinic Orthopedic CenterComment on above:Performed By: #### CDP, CMPX, MG #### [facility] [address] [address] Data Base Design Analyst: Dario Almanza MDUrea nitrogen [Mass/Vol]15 mg/dLNormal8-23[facility]opedic CenterComment on above:Performed By: #### CDP, CMPX, MG #### [facility] [employer] [address] [place] [address] Data Base Design Analyst: Dario Almanza MDMagnesiumon 01-38-3362Ltfipwsyl [Mass/Vol]2.0 mg/dLNormal1.6-2.4[facility] CenterComment on above:Performed By: #### CDP, CMPX, MG #### [address] [place] [address] Data Base Design Analyst: RO Barrera, POCon 91-23-8277Cslx nitrogen [Mass/Vol]18 mg/dLNormal8-26[facility] Orthopedic CenterCT BRAIN PERFUSIONon 47-00-3230NW BRAIN PERFUSIONEXAMINATION: CTA OF THE HEAD AND NECK WITH [...] Signed by: Edgar Montilla MD 07/14/24 Final resultNormalMercy Community Medical Center-ClovisCTA HEAD NECK W CONTRASTon 37-84-8864YCA HEAD NECK W CONTRASTEXAMINATION: CTA OF THE HEAD AND NECK WITH [...] Signed by: Edgar Montilla MD 07/14/24 Final resultNormalMerDowney Regional Medical CenterCalcium, Ionic (POC)on 54-43-8266Wkhsnwo [Moles/Vol]1.11 mmol/LLow1.15-1.33[facility] CenterCreatinine w/GFR, POCon 40-64-2969Balsqnrdll [Mass/Vol]1.0 mg/dLNormal 0.51-1.19[facility] CenterGFR/1.73 sq M.predicted among non- blacks MDRD (S/P/Bld) [Vol rate/Area]84 mL/min/{1.73_m2}Normal>60MerDowney Regional Medical CenterComment on above:Result Comment: These results are not intended for [...] or following therapy that affects renal tubular secretion.Drug Scr, Abuse, Uron 07-14-2024 Amphetamine(s),UrPositiveAbnormalNEGCrystal Clinic Orthopedic CenterComment on above:Result Comment: Cutoff: 1000 ng/mLPerformed By: #### UAREBECCA MARIA D #### [address] [place] [address] Data Base Design Analyst: Dario Almanza MDBenzodiazepine(s)PositiveAbmarion junctionNEGCrystal Clinic Orthopedic CenterComment on above:Result Comment: Cutoff: 200 ng/ml Performed By: #### UAMIC, MARIA D #### [facility] [address] [place] [address] Data Base Design Analyst: NEHEMIAS Barreraannabinoid(s),UrPositiveAbnormalNEGMerDowney Regional Medical CenterComment on above:Result Comment: Cutoff: 50 ng/mlPerformed By: #### UAMIC, MARIA D #### [facility] [address] [place] [address] Data Base Design Analyst: Dario Almanza MDInterpretive InfoAssay provides rapid clinical screening only. Presumptive positive results [facility] CenterComment on above:Result Comment: legal purposes should be confirmed by another method. To request confirmation, please call the lab within 7 days of sample submission.Performed By: #### UAMIC, MARIA D #### [address] [address] Data Base Design Analyst: Dario Almanza MDBarbiturate(s),UrNegativeNormalNEGCrystal Clinic Orthopedic CenterComment on above:Result Comment: Cutoff: 200 ng/ml Performed By: #### UAMIC, MARIA D #### [address] [address] Data Base Design Analyst: NEHEMIAS Barreraocaine MetaboliteNegativeJonesportNEGCrystal Clinic Orthopedic CenterComment on above:Result Comment: Cutoff: 300 ng/ml Performed By: #### UAMIC, MARIA D #### [facility] [address] [place] [address] Data Base Design Analyst: Dario Almanza MDFentanyl, UrineNegativeNormnyNEGCrystal Clinic Orthopedic CenterComment on above:Result Comment: Cutoff: 5 ng/mlPerformed By: #### UAMIC, MARIA D #### [facility] [address] [place] [address] Data Base Design Analyst: ELISABETH Barreraethadone Ql (U)NegativeNormalSt. Rita's HospitalComment on above:Result Comment: Cutoff: 300 ng/ml Performed By: #### UAMIC, MARIA D #### [facility] [address] [place] [address] Data Base Design Analyst: Dario Almanza MDOpiate(s), UrNegativeChildren's Hospital of ColumbusComment on above:Result Comment: Cutoff: 300 ng/mlPerformed By: #### UAMIC, MARIA D #### [facility] [address] [place] [address] Data Base Design Analyst: Dario Almanza MDOxycodone, UrineNegativeChildren's Hospital of ColumbusComment on above:Result Comment: Cutoff: 100 ng/ml Performed By: #### UAMIC, MARIA D #### [address] [address] Data Base Design Analyst: Fidelina Barreraidine, UrNegativeChildren's Hospital of ColumbusComment on above:Result Comment: Cutoff: 25 ng/mlPerformed By: #### UAMIC, MARIA D #### [address] [address] Data Base Design Analyst: Dario Almanza MDElectrolyteson 57-71-9493Dpkun gap [Moles/Vol]9 mmol/LNormal7-16[facility]opedic CenterChloride [Moles/Vol]101 mmol/L Uifvhw29-723LmhxvCrystal Clinic Orthopedic CenterCO2 [Moles/Vol]32 mmol/RBvwa39-14 [facility] CenterPotassium [Moles/Vol]4.0 mmol/LNormal3.5-4.5 [facility] Hospital - Youngstownodium [Moles/Vol]141 mmol/THybftn889-302XlrxeCrystal Clinic Orthopedic CenterGlucose (POC)on 32-65-6337Ywyxtzk [Mass/Vol]172 mg/dL Dzsp13-210MvzpcCrystal Clinic Orthopedic CenterHgb/Hct, POCon 62-63-0024Htimqwgbqv (Bld) [Volume fraction]43 %Adzirz34-75Rrxfj Community Medical Center-ClovisHemoglobin (Bld) [Mass/Vol]14.8 g/cXGzbhwy18.5-17.5Mer[facility] Center-ClovisLactic Acidon 90-33-0843Qxyshn Acid,Whole Bl1.7 mmol/LNormal0.7-2.1Mer[facility] Center-ClovisComment on above:Performed By: #### EDTOX, LACTIC #### [address] [place] [address] Data Base Design Analyst: Dario Almanza MDLactic Acid (POC)on 40-79-3856Cuwgvhn [Moles/Vol]2.8 mmol/LHigh0.56-1.39Mer[facility] Center-ClovisMRI BRAIN W WO CONTRASTon 68-14-1449MCC BRAIN W WO CONTRASTEXAMINATION: MRI OF THE BRAIN WITHOUT AND WITH [...] collection present. The proximal portions of the table mountain of [place] demonstrate normal flow voids. ORBITS: [...] Signed by: Edgar Montilla MD 07/14/24 Final resultNormalSelect Medical Specialty Hospital - Youngstowntroke Panelon 62-21-3008Uuw. Basophil0.06 k/uLNormal0.00-0.20[facility]opedic CenterComment on above:Performed By: #### STROKE #### [address] [address] Data Base Design Analyst: MDAbs. BruceImm.Granulocyte0.00 k/uLNormal0.00-0.30[facility] CenterComment on above:Performed By: #### STROKE #### [place] [address] Data Base Design Analyst: Olya Barrera.Neutrophil (Seg)5.40 k/uLNormal1.50-8.10 [facility] CenterComment on above:Performed By: #### STROKE #### [address] [address] Data Base Design Analyst: Dario Almanza MDBasophils/100 WBC (Bld)1 %Normal0-2Mer[facility] Center-ClovisComment on above:Performed By: #### STROKE #### [address] [address] Data Base Design Analyst: Dario Almanza MDEosinophils (Bld) [#/Vol]0.00 10*3/uLNormal 0.00-0.44[facility] CenterComment on above:Performed By: #### STROKE #### [address] [address] Data Base Design Analyst: KEATON Barreraosinophils/100 WBC (Bld)0 %Low1-4[facility] Medical CenterComment on above:Performed By: #### STROKE #### [address] [address] Data Base Design Analyst: Dario Almanza MDImmature granulocytes/100 WBC (Bld)0 %Normal0 [facility] CenterComment on above:Performed By: #### STROKE #### [address] [address] Data Base Design Analyst: Dario Almanza MDLymphocytes (Bld) [#/Vol]0.43 10*3/uLLow 1.10-3.70[facility] CenterComment on above:Performed By: #### STROKE #### [address] [address] Data Base Design Analyst: Mis Barreramphocytes/100 WBC (Bld)7 %Dtb20-13UorysCrystal Clinic Orthopedic CenterComment on above:Performed By: #### STROKE #### [address] [address] Data Base Design Analyst: ELISABETH Barreraonocytes (Bld) [#/Vol]0.31 10*3/uLNormal 0.10-1.20[facility] CenterComment on above:Performed By: #### STROKE #### [address] [address] Data Base Design Analyst: ELISABETH Barreraonocytes/100 WBC (Bld)5 %Normal3-12[facility] CenterComment on above:Performed By: #### STROKE #### [address] [address] Data Base Design Analyst: ELISABETH Barreraorphology David (Bld) [Interp]NormalNormalCrystal Clinic Orthopedic CenterComment on above:Performed By: #### STROKE #### [address] [address] Data Base Design Analyst: Bouchra Barrerautrophil (Seg)87 %Hzji53-02GlmlwCrystal Clinic Orthopedic CenterComment on above:Performed By: #### STROKE #### [address] [address] Data Base Design Analyst: Dario Almanza MDAnion gap [Moles/Vol]8 mmol/LLow9-16[facility] CenterComment on above:Performed By: #### STROKE #### [address] [address] Data Base Design Analyst: Dario Almanza MDCalcium [Mass/Vol]8.5 mg/dLLow8.6-10.4[facility] CenterComment on above:Performed By: #### STROKE #### [address] [address] Data Base Design Analyst: NEHEMIAS Barrerahloride [Moles/Vol]102 mmol/CXafjsu37-744CajldCrystal Clinic Orthopedic CenterComment on above:Performed By: #### STROKE #### [address] [address] Data Base Design Analyst: Dario Almanza MDCK [Catalytic activity/Vol]101 U/UFzcubt62-581 [facility] CenterComment on above:Performed By: #### STROKE #### [address] [address] Data Base Design Analyst: Dario Almanza MDCO2 [Moles/Vol]27 mmol/ICinihd04-03HfukrCrystal Clinic Orthopedic CenterComment on above:Performed By: #### STROKE #### [address] [address] Data Base Design Analyst: Dario Almanza MDCreatinine [Mass/Vol]1.1 mg/dLNormal0.70-1.20 [facility] CenterComment on above:Performed By: #### STROKE #### [facility] [employer] [address] [place] [address] Data Base Design Analyst: Dario Almanza MDGFR/1.73 sq M.predicted among non-blacks MDRD (S/P/Bld) [Vol rate/Area]74 mL/min/{1.73_m2}Normal>60[facility] CenterComment on above:Result Comment: These results are not intended for [...] or following therapy that affects renal tubular secretion.Performed By: #### STROKE #### [facility] [employer] [address] [place] [address] Data Base Design Analyst: Dario Almanza MDGlucose [Mass/Vol]174 mg/kTMqkd98-21NhrzqBear Valley Community HospitalComment on above:Performed By: #### STROKE #### [facility] [employer] [address] [place] [address] Data Base Design Analyst: Dario Almanza MDMyoglobin [Mass/Vol]106 ng/oRDqog13-56BecudCrystal Clinic Orthopedic CenterComment on above:Performed By: #### STROKE #### [facility] [employer] [address] [place] [address] Data Base Design Analyst: Dario Almanza MDPotassium [Moles/Vol]4.0 mmol/LNormal3.7-5.3 [facility] CenterComment on above:Result Comment: SPECIMEN SLIGHTLY HEMOLYZED, RESULTS MAY BE ADVERSELY AFFECTED.Performed By: #### STROKE #### [facility] [employer] [address] [place] [address] Data Base Design Analyst: Dario Almanza MDSodium [Moles/Vol]137 mmol/AXhhdfl883-839DodojCrystal Clinic Orthopedic CenterComment on above:Performed By: #### STROKE #### [address] [address] Data Base Design Analyst: Brendan Barrera High Sens24 ng/LHigh0-[facility]opedic CenterComment on above:Result Comment: High Sensitivity Troponin values cannot be compared with other Troponin methodologies.Performed By: #### STROKE #### [address] [address] Data Base Design Analyst: Dario Almanza MDUrea nitrogen [Mass/Vol]16 mg/dLNormal8-[facility] CenterComment on above:Performed By: #### STROKE #### [address] [address] Data Base Design Analyst: Dario Almanza MDaPTAundrea Coag (Bld) [Time]22.1 sLow23.0-36.5[facility] Orthopedic CenterComment on above:Result Comment: IV Heparin Therapy Range: 66.0-92.0 secPerformed By: #### STROKE #### [address] [address] Data Base Design Analyst: ESPERANZA Barrera Coag (PPP) [Relative time]1.1 {INR}Normal [facility]opedic CenterComment on above:Result Comment: Therapeutic Range: Moderate Anticoagulant Intensity: INR = 2.0-3.0 High Anticoagulant Intensity: INR = 2.5-3.5Performed By: #### STROKE #### [address] [address] Data Base Design Analyst: JAYLAN Barrera Coag (PPP) [Time]13.6 rXioxgh21.7-14.9[facility] CenterComment on above:Performed By: #### STROKE #### [address] [address] Data Base Design Analyst: Dario Almanza MDErythrocyte distribution width (RBC) [Ratio]13.2 %Ydhgym11.8-14.4[facility] CenterComment on above:Performed By: #### STROKE #### [address] [address] Data Base Design Analyst: Dario Almanza MDHematocrit (Bld) [Volume fraction]42.4 %Normal 40.7-50.3MBear Valley Community HospitalComment on above:Performed By: #### STROKE #### [address] [address] Data Base Design Analyst: Dario Almanza MDHemoglobin (Bld) [Mass/Vol]13.9 g/dLNormal 13.0-17.0[facility] CenterComment on above:Performed By: #### STROKE #### [address] [address] Data Base Design Analyst: ELISABETH BarreraCH (RBC) [Entitic mass]29.6 uwGxejbp49.2-33.5 [facility] CenterComment on above:Performed By: #### STROKE #### [address] [address] Data Base Design Analyst: ELISABETH BarreraCHC (RBC) [Mass/Vol]32.8 g/eDNyabis72.4-34.8 [facility] CenterComment on above:Performed By: #### STROKE #### [address] [address] Data Base Design Analyst: ELISABETH BarreraCV (RBC) [Entitic vol]90.2 oSCiuybp63.6-102.9 [facility] CenterComment on above:Performed By: #### STROKE #### [address] [address] Data Base Design Analyst: Dario Almanza MDNRBC Automated0.0 per 100 WBCNormal0.0[facility] CenterComment on above:Performed By: #### STROKE #### [address] [address] Data Base Design Analyst: Abida Barrera mean volume (Bld) [Entitic vol]9.3 fL Normal8.1-13.5[facility]opedic CenterComment on above:Performed By: #### STROKE #### [address] [address] Data Base Design Analyst: Ayan Barrera (Bld) [#/Vol]267 10*3/tFEahqqc094-892 [facility] CenterComment on above:Performed By: #### STROKE #### [address] [address] Data Base Design Analyst: SOBIA Barrera (Bld) [#/Vol]4.70 10*6/uLNormal4.21-5.77 [facility] CenterComment on above:Performed By: #### STROKE #### [address] [address] Data Base Design Analyst: DENTON Barrera (Bld) [#/Vol]6.2 10*3/uLNormal3.5-11.3Macmc healthcare system glenbeighy Community Medical Center-ClovisComment on above:Performed By: #### STROKE #### [address] [address] Data Base Design Analyst: NILA Barrera w/reflex to FT4on 46-31-0830Ynrwnmg Stim. Horm.1.44 uIU/mLNormal0.27-4.20[facility] CenterComment on above: Performed By: #### TSHX ####[address] [place] [address] Lab Director: Lavon Barrera Scr, Bld, EDon 07-14-2024 Acetaminophen [Mass/Vol]ug/rHAzp72-30ZcrmpCrystal Clinic Orthopedic CenterComment on above:Performed By: #### EDTOX, LACTIC #### [facility] [address] [place] [address] Data Base Design Analyst: Dario Almanza MDEthanol [Mass/Vol]mg/dLNormal<10[facility] CenterComment on above:Performed By: #### EDTOX, LACTIC #### [facility] [address] [place] [address] Data Base Design Analyst: Dario Almanza MDEthanol percent<0.010Normal<0.010[facility] CenterComment on above:Performed By: #### EDTOX, LACTIC #### [facility] [address] [place] [address] Data Base Design Analyst: VANESA Barreraalicylate<0.8Cijwvk8.0-10.0[facility] CenterComment on above:Performed By: #### EDTOX, LACTIC #### [facility] [address] [place] [address] Data Base Design Analyst: Dario Almanza MDUrinalysis w/ Microon 09-36-0137HxnwtompPcrw NormalNONEMeMission Community HospitalComment on above:Performed By: #### UAMIC, MARIA D #### [address] [address] Data Base Design Analyst: Dario Almanza MDBilirubin, SemiQt,UrNegativeNormalNEGCrystal Clinic Orthopedic CenterComment on above:Performed By: #### UAMIC, MARIA D #### [facility] [address] [place] [address] Data Base Design Analyst: Dario Almanza MDBlood, UrineNegativeNormalNEGCrystal Clinic Orthopedic CenterComment on above:Performed By: #### UAMIC, MARIA D #### [facility] [employer] [address] [place] [address] Data Base Design Analyst: NEHEMIAS Barreraasts5 TO 10 HYALINENormal0-8[facility] CenterComment on above:Result Comment: Reference range defined for non- centrifuged specimen.Performed By: #### ERI, MARIA D #### [address] [address] Data Base Design Analyst: NEHEMIAS Barreralarity (U)ClearNormalCLEARCrystal Clinic Orthopedic CenterComment on above:Performed By: #### UAREBECCA, MARIA D #### [address] [address] Data Base Design Analyst: NEHEMIAS Barreraolor (U)YellowNormalYELMerDowney Regional Medical CenterComment on above:Performed By: #### ERI, MARIA D #### [place] [address] Data Base Design Analyst: Dario Almanza MDEpithelial cells LM Ql (Urine sed)0 TO 2Normal 0-5[facility] CenterComment on above:Performed By: #### ERI, MARIA D #### [address] [address] Data Base Design Analyst: Dario Almanza MDGlucose Ql (U)1+ mg/dLAbnormalNEGCrystal Clinic Orthopedic CenterComment on above:Performed By: #### ELIOMIC, MARIA D #### [address] [address] Data Base Design Analyst: Dario Almanza MDKetones Ql (U)NegativeNormalNEGCrystal Clinic Orthopedic CenterComment on above:Performed By: #### ERI, MARIA D #### [place] [address] Data Base Design Analyst: Dario Almanza MDLeukocyte esterase Test strip Ql (U)Negative NormalNEGCrystal Clinic Orthopedic CenterComment on above:Performed By: #### UAMIC, MARIA D #### [facility] [address] [place] [address] Data Base Design Analyst: Vita Barreraite,UrNegativeNormalNEGCrystal Clinic Orthopedic CenterComment on above:Performed By: #### UAMIC, MARIA D #### [facility] [address] [place] [address] Data Base Design Analyst: JAYME Barrera,Ur7.3Duwqof0.0-8.0[facility] CenterComment on above:Performed By: #### UAMIC, MARIA D #### [facility] [address] [place] [address] Data Base Design Analyst: Treasure Barrera Ql (U)1+ mg/dLAbnormBucyrus Community HospitalComment on above:Performed By: #### UAMIC, MARIA D #### [facility] [address] [place] [address] Data Base Design Analyst: VANESA Barrerapec. Watkins,Ur1.685Ftsx8.005-1.030[facility] CenterComment on above:Performed By: #### UAMIC, MARIA D #### [facility] [address] [place] [address] Data Base Design Analyst: Sierra Barrera RBC's0 TO 0Yhrhgw7-0DxatxCrystal Clinic Orthopedic CenterComment on above:Result Comment: Reference range defined for non- centrifuged specimen.Performed By: #### UAMIC, MARIA D #### [facility] [address] [place] [address] Data Base Design Analyst: Sierra Barrera WBC'sNoneNormal0-5[facility] CenterComment on above:Performed By: #### UAMIC, MARIA D #### [facility] [address] [place] [address] Data Base Design Analyst: Dario Madoff, MDUrobilinogen,UrNormalNormal0.0-1.0[facility] CenterComment on above:Performed By: #### UAREBECCA, MARIA D #### [facility] CenterLife [facility] [place] [address] Data Base Design Analyst: Dario Almanza MDVenous Bld Gas,POCon 66-50-5050NUQ2 (Bld) [Moles/Vol]31.9 mmol/LHigh22.0-29.0[facility] CenterOxygen saturation in Blood45.4 %Low60.0-85.0[facility]opedic CenterpCO2, Nrcche90.5 mm OzNyxzun67.0-51.0[facility] CenterpH,Venous7.435 High7.320-7.430[facility]opedic CenterpO2, Eanhrq17.6 mm HgLow30.0-50.0 [facility] CenterPositive Base Excess (calc)6.4 mmol/LHigh0.0-3.0 [facility] CenterXR ABDOMEN (KUB) (SINGLE AP VIEW)on 09-54-6463IU ABDOMEN (KUB) (SINGLE AP VIEW)EXAMINATION: ONE SUPINE XRAY VIEW(S) OF THE ABDOMEN [...] Signed by: Jt Gray MD 07/14/24 Final resultNormalCrystal Clinic Orthopedic CenterXR CHEST PORTABLEon 07-14-2024 XR CHEST PORTABLEEXAMINATION: ONE XRAY VIEW OF THE CHEST 07/14/2024 [...] Signed by: Basil Witt DO 07/14/24 Final resultNormalMercy Community Medical Center-ClovisCalcium [Mass/volume] in Serum or PlasmaOrdered By: Janae Jose on 95-66-1021Txwofmp [Mass/Vol]9.0 mg/dL 8.6-10.3FChillicothe VA Medical CenterCarbon dioxide, total [Moles/volume] in Serum or PlasmaOrdered By: Janae Jose on 97-08-2186ML4 [Moles/Vol]30.3 mmol/L21.0-31.0[facility] HospitalChloride [Moles/volume] in Serum or PlasmaOrdered By: Janae Jose on 82-90-9688Csfnglge [Moles/Vol]98 mmol/L 98-107[facility] HospitalCreatinine [Mass/volume] in Serum or PlasmaOrdered By: Janae Jose on 00-20-6285Iustnbecpz [Mass/Vol]0.97 mg/dL 0.70-1.30[facility] HospitalGlucose [Mass/volume] in Serum or PlasmaOrdered By: Janae Jose on 28-06-4723Envxfao [Mass/Vol]105 mg/eG69-703 [facility] HospitalComment on above:ADA recommended reference rangeRandom Glucose Reference Range is dependent on time and content of last meal. Glucose of more than 200 mg/dL in a nonstressed, ambulatory subject supports the diagnosisof Diabetes Mellitus.No Panel InformationOrdered By: Janae Jose on 12-97-4450Dytqbpeml GFR (CKD-EPI)> 60.0 mL/MinDunlap Memorial HospitalPharmacy Creatinine Clearance (Chem82.90[facility] HospitalPotassium [Moles/volume] in Serum or PlasmaOrdered By: Janae Jose on 51-37-2113Hezvlcoss [Moles/Vol]4.4 mmol/L3.5-5.1FOhioHealth Berger Hospitalerum or plasma anion gap determinationOrdered By: Janae Jose on 04-59-0058Kullz gap [Moles/Vol]8.1 mmol/L6.0-15.0M[facility]letown Hospitalodium [Moles/volume] in Serum or PlasmaOrdered By: Janae Jose on 05-45-5060Ktfqjo [Moles/Vol]132 mmol/S354-080YfpnrbzsiDunlap Memorial HospitalUrea nitrogen [Mass/volume] in Serum or PlasmaOrdered By: Janae Jose on 50-11-8172Kmuo nitrogen [Mass/Vol]25 mg/dL7-25[facility] Ammonia [Moles/volume] in PlasmaOrdered By: Víctor Agrawal on 91-62-7210Hfidvec (P) [Moles/Vol]22 umol/C35-79KadocxlwwDunlap Memorial HospitalBasophils Auto (Bld) [#/Vol]Ordered By: Magdy Douglass on 04-51-9735Cvyxoedga (Bld) [#/Vol] 0.0 10*3/uL0.0-0.2FChillicothe VA Medical CenterBasophils/100 WBC Auto (Bld) Ordered By: Magdy Douglass on 67-77-3332Mfjpzzjwa/100 WBC (Bld)0.1 %. [facility] HospitalEosinophils Auto (Bld) [#/Vol]Ordered By: Magdy Douglass on 58-98-1077Ysrricjctsr (Bld) [#/Vol]0.0 10*3/uL0.0-0.45 [facility] HospitalEosinophils/100 WBC Auto (Bld)Ordered By: Magdy Douglass on 53-49-3546Xafucstsruu/100 WBC (Bld)0.0 %.Dun[facility] Memorial HospitalErythrocyte distribution width Auto (RBC) [Ratio]Ordered By: Magdy Douglass on 28-24-0911Enxcwecjvet distribution width (RBC) [Ratio]16.5 %12.0-14.8[facility] Memorial HospitalFolate [Mass/volume] in Serum or PlasmaOrdered By: Janae Jose on 84-97-7637Obfcdr [Mass/Vol]9.7 ng/mL>5.9 [facility] HospitalComment on above:Folate reference range: >5.9 ng/mlThe WHO technical consultation on folate and vitamin e64nzrpogvnvjth has determined that folate concentrations lessthan 4 ng/ml are considered deficient. Hematocrit Auto (Bld) [Volume fraction]Ordered By: Magdy Douglass on 09-96-1188Msimbboqbk (Bld) [Volume fraction]45.0 %38.8-50.0[facility] Memorial HospitalHemoglobin [Mass/volume] in BloodOrdered By: Magdy Douglass on 74-57-0433Fkbhseiwpl (Bld) [Mass/Vol]14.8 g/dL13.0-17.0[facility] Memorial HospitalLeukocytes [#/volume] corrected for nucleated erythrocytes in Blood by Automated counOrdered By: Magdy Douglass on 13-72-4498KQD corrected for nucl RBC Auto (Bld) [#/Vol]9.6 10*3/uL4.1-10.5FChillicothe VA Medical CenterLymphocytes Auto (Bld) [#/Vol]Ordered By: Magdy Douglass on 05-04-2024 Lymphocytes (Bld) [#/Vol]0.5 10*3/uL1.00-4.8[facility] Lymphocytes/100 WBC Auto (Bld)Ordered By: Magdy Douglass on 05-04-2024 Lymphocytes/100 WBC (Bld)4.9 %.[facility] HospitalMCH Auto (RBC) [Entitic mass]Ordered By: Magdy Douglass on 07-98-8264FWU (RBC) [Entitic mass]29.8 pg27.5-35.2FChillicothe VA Medical CenterMCHC Auto (RBC) [Mass/Vol] Ordered By: Magdy Douglass on 16-56-1804SDYT (RBC) [Mass/Vol]32.9 g/dL 32.5-35.6FChillicothe VA Medical CenterMCV Auto (RBC) [Entitic vol]Ordered By: Magdy Douglass on 57-64-7686OMY (RBC) [Entitic vol]90.4 fL83.5-101 [facility] HospitalMonocytes Auto (Bld) [#/Vol]Ordered By: Magdy Douglass on 69-69-0835Wfaqbzala (Bld) [#/Vol]0.3 10*3/uL0.0-0.8[facility] HospitalMonocytes/100 WBC Auto (Bld)Ordered By: Magdy Douglass on 89-61-4547Vjepfnkgu/100 WBC (Bld)3.0 %.[facility] Neutrophils Auto (Bld) [#/Vol]Ordered By: Magdy Douglass on 05-04-2024 Neutrophils (Bld) [#/Vol]8.9 10*3/uL1.8-7.7FChillicothe VA Medical Center Neutrophils/100 WBC Auto (Bld)Ordered By: Magdy Douglass on 05-04-2024 Neutrophils/100 WBC (Bld)92.0 %.[facility] HospitalNucleated erythrocytes [Presence] in Blood by Automated countOrdered By: Magdy Douglass on 94-59-8828Iiqcrdmtl RBC Auto Ql (Bld)0.0 /100{WBC}0-0.5FChillicothe VA Medical CenterPlatelet mean volume Auto (Bld) [Entitic vol]Ordered By: Magdy Douglass on 48-53-8040Xsmssivp mean volume (Bld) [Entitic vol]6.5 fL6.6-10.1 [facility] HospitalPlatelets Auto (Bld) [#/Vol]Ordered By: Magdy Douglass on 18-97-3063Rxitzqqho (Bld) [#/Vol]417 10*3/eW889-137ZlorlfgcuDunlap Memorial HospitalRBC Auto (Bld) [#/Vol]Ordered By: Magdy Douglass on 89-41-8699XUZ (Bld) [#/Vol]4.97 10*6/uL3.90-5.60[facility] HospitalThyrotropin [Units/volume] in Serum or PlasmaOrdered By: Janae Jose on 93-84-0321OYV Qn5.50 m[IU]/L0.45-5.33[facility] HospitalVitamin B12 ser/plasOrdered By: Janae Jose on 64-12-3943Ilnjjywwq (Vitamin B12) [Mass/Vol]500 pg/pC304-298FbhvgmfwhDunlap Memorial HospitalWBC Auto (Bld) [#/Vol]Ordered By: Magdy Douglass on 40-53-9302XMJ (Bld) [#/Vol]9.6 10*3/uL 4.1-10.5FChillicothe VA Medical CenterAlanine aminotransferase [Enzymatic activity/volume] in Serum or PlasmaOrdered By: Magdy Douglass on 05-03-2024 ALT [Catalytic activity/Vol]14 U/L7-52[facility] HospitalAlbumin [Mass/volume] in Serum or Plasma by Bromocresol green (BCG) dye binding metho Ordered By: Magdy Douglass on 90-88-6481Lfexpzf BCG dye [Mass/Vol]3.1 g/dL 3.5-5.7FChillicothe VA Medical CenterAlkaline phosphatase [Enzymatic activity/volume] in Serum or PlasmaOrdered By: Magdy Douglass on 05-03-2024 ALP [Catalytic activity/Vol]131 U/D91-192DwyuvwsguDunlap Memorial Hospital Aspartate aminotransferase [Enzymatic activity/volume] in Serum or PlasmaOrdered By: Magdy Douglass on 58-57-2666UQO [Catalytic activity/Vol]12 U/L13-39 [facility] HospitalBilirubin.total [Mass/volume] in Serum or PlasmaOrdered By: Magdy Douglass on 28-25-1918Wtdgpzkkb [Mass/Vol]0.4 mg/dL 0.3-1.0[facility] HospitalGlobulin Calc (S) [Mass/Vol]Ordered By: Magdy Douglass on 92-01-7675Lwclihjh (S) [Mass/Vol]2.8 g/dLDunlap Memorial HospitalProtein [Mass/volume] in Serum or PlasmaOrdered By: Magdy Douglass on 74-66-0193Xrjjjyn [Mass/Vol]5.9 g/dL6.4-8.9[facility]let[facility] Hospitalerum or plasma albumin/globulin mass ratioOrdered By: Magdy Douglass on 41-93-8349Zdabzqy/Globulin [Mass ratio]1.1 {ratio}[facility] HospitalC reactive protein [Mass/volume] in Serum or Plasma Ordered By: Magdy Douglass on 08-23-6886IZY [Mass/Vol]2.5 mg/dL0.0-0.5 [facility] HospitalLactate [Moles/volume] in Serum or Plasma Ordered By: Magdy Douglass on 74-75-8521Fdrtmxt [Moles/Vol]0.6 mmol/L0.5-2.2 [facility] HospitalMagnesium [Mass/volume] in Serum or Plasma Ordered By: Magdy Douglass on 61-70-1205Agaaangpv [Mass/Vol]2.1 mg/dL1.9-2.7 [facility] HospitalTroponin I.cardiac [Mass/volume] in Serum or Plasma by Detection limit <= 0.01 ng/Ordered By: Janae Jose on 05-02-2024 Troponin I.cardiac DL <= 0.01 ng/mL [Mass/Vol]74.8 pg/mL0.0-20.0[facility] HospitalComment on above:Critical Result : Called to and read back by: JAYLAN YAO at: 05/02/2024 15:02:51 by:GABACETAMINOPHENon 11-24-2022 Acetaminophen [Mass/Vol]ug/sLWpeaug97.0-30.0The [facility] HospitalComment on above:Performed By: #### SALYC, ACET, CMP, ETH #### [facility] [address] [place] [address] Dr. Renny West AUTO DIFFon 62-39-1916ZRCT #0.0 103/ulNormal0.0-0.1The [facility] HospitalComment on above:Performed By: #### CBC #### [facility] [address] [address] [address] Renny Yousifsophils/100 WBC (Bld)0.8 %Normal0.2-2.0The [facility] Comment on above:Performed By: #### CBC #### [facility] [address] [place] [address] Dr. Renny Triplett #0.3 103/ulNormal0.0-0.7The [facility] HospitalComment on above: Performed By: #### CBC #### [facility] [address] [address] [address] Renny Rinaldiosinophils/100 WBC (Bld)6.2 %Normal0.9-7.0The [facility] Comment on above:Performed By: #### CBC #### [facility] [address] [place] [address] Dr. Renny Rinaldirythrocyte distribution width (RBC) [Ratio]14.8 %Gflver00.0-15.0 [facility] HospitalComment on above:Performed By: #### CBC #### [facility] [address] [place] [address] Dr. Renny AzevedoHematocrit (Bld) [Volume fraction]38.6 %Critically low42.0-54.0 The [facility] HospitalComment on above:Performed By: #### CBC #### [facility] [address] [place] [address] Dr. Renny AzevedoHemoglobin (Bld) [Mass/Vol]12.6 g/dLCritically low14.0-18.0The [facility] HospitalComment on above:Performed By: #### CBC #### [facility] [address] [place] [address] Dr. Renny Pa #0.01 10e3/ulNormal0.00-0.03The [facility]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 95-30-6606Zxy-patient / Non-visitLarry E Kodi Perez -[facility] Palliative Work Phone: Start: 68-69-8397Tsg-patient / Non-visitChristopher E Raina MT-[facility] Pulmonary Work Phone: Start: 07-31-2025 End: 46-78-2370Ergcpqwrzn and management of inpatientKristopher Lindbloo [facility]: 24-18-2988Qnd-patient / Non-visitAdam Rachelle -[facility] Neurology Work Phone: Start: 07-31-2025 End: 89-66-0991ndegmgmngpRebjo Rudy Feldman DO Work Phone: [facility] Work Phone: Start: 07-31-2025 End: 85-57-7905Ghpudnya Adrianna Peng DO-LAB [facility] Start: 06-07-2025 End: 51-51-1467wzlsjwbmrlTWYKZUPTQ LANGSHAWFacility:METROHealthStart: 06-07-2025 Non-patient / Non-visitDerek Wai Oglesby -[facility] Pulmonary Work Phone: Start: 06-07-2025 End: 37-33-4620Wkrbanpyge and management of inpatientKatherine Sciarappa [facility]: 97-23-5390Ekv-patient / Non-visitDavid Degroh DO Work Phone: [facility] Cardiology Work Phone: Start: 11-18-2024 End: 88-30-5830Kxgifnkniw and management of inpatientDavid Degroh DO Work Phone: [facility] Work Phone: Start: 11-17-2024 End: 14-66-2721Zzxtjteim department patient visitNO PCP NO [facility] Ambulatory PPGStart: 93-91-9245Rzbppygmmp and management of inpatientDavid Degroh DO Work Phone: [facility] Work Phone: Start: 69-11-6788soriplfjrin encounterDavid L Degroh DO Work Phone: [facility] Work Phone: Start: 07-14-2024 End: 51-35-4031Itbewpmyza and management of inpatientAHMED B YOAVIsamar [facility] Hospitaltart: 92-20-1607Yig-patient / Non-visitDO Sulaiman Feldman Work Phone: [facility] Work Phone: Start: 17-71-2442Opt-patient / Non-visitDO Sulaiman Feldman Work Phone: [facility] Work Phone: Start: 05-01-2024 End: 17-67-9287Gltfybqiay and management of inpatientDO Sulaiman Feldman Work Phone: [facility] Work Phone: Start: 11-24-2022 End: 85-86-0817aavmtczplqFF NONE LISTED REQUESTFacility:W1Bsxpz: 10-14-2018 End: 96-89-6826Yapyxeuvk department patient visitMervera Manzanares HospitalStart: 01-29-2018 End: 32-84-6750Micxzmmjcc and management of inpatientSREEKANTH V INDURTIMercy Lake California HospitalStart: 09-29-2017 End: 89-79-9673Yzboeetqi department patient visitNone ProviderFacility:[facility] HospitalStart: 06-07-2017 End: 91-80-3414Fmuzqkclh department patient visitLutheran HospitalStart: 05-27-2017 End: 18-62-6921Kowlzbwma department patient visitL[facility] Procedures DateProcedureProcedure DetailPerforming ClinicianStart: 32-51-6396Iidle culture Sulaiman Degkrystyna DO Work Phone: Start: 77-45-6803IHD of headDavid Degroh DO Work Phone: Start: 37-69-9964Hlkef chest X-rayDavid Degroh DO Work Phone: Start: 85-77-8992IY angiography of headDavid Degroh DO Work Phone: Start: 39-21-1662NV angiography of neck vesselsDavid Degroh DO Work Phone: Start: 44-36-0124ZR of head without contrastDavid Degroh DO Work Phone: Start: 13-08-8137VI of head without contrastDO Sulaiman Feldman Work Phone: Start: 75-58-3999Vweip chest X-rayDO Sulaiman Feldman Work Phone: Start: 24-90-8041Fi lumbar spine w/o contrast material Start: 86-98-7692UO OPIOID CONTAINING MEDICATIONSStart: 86-98-3996XPVGNZWOY PATIENTSREEKANTH INDURTIStart: 12-85-7609JWM 12-LEADSREEKANTH INDURTIStart: 38-09-3048UDT WITH AUTO DIFFERENTIALSREEKANTH INDURTIStart: 01-30-2018 COMPREHENSIVE METABOLIC PANELSREEKANTH INDURTIStart: 10-01-0272Jwfny panel ELIAN INDURTIStart: 69-80-6762V2UYEZFTJUT INDURTIStart: 43-06-4436O3 ELIAN INDURTIStart: 37-72-0654AXA WITH REFLEXSREEKANTH INDURTIStart: 33-06-1341FP W/REFLEX CULTURESREEKANTH INDURTIStart: 87-44-1921KAWEP DRUG SCREEN ELIAN INDURTIStart: 56-79-5495XJ CONSULT TO HISTORY AND PHYSICALSREEKANTH INDURTIStart: 92-56-7079NYQUUKJXZAZLA NURSING CARE ORDER (SPECIFY)ELIAN INDURTIStart: 19-03-9544RJIOO SIGNSSREEKANTH INDURTIStart: 38-07-3777QOJE CODE ELIAN INDURTIStart: 45-24-4188KJJRSFX STATUS (DIRECT)ELIAN INDURTIStart: 39-85-4371RAZV GENERALSREEKANTH INDURTI Plan of Treatment DateCare ActivityDetailAuthorStart: 18-48-1948GginqnslvDunlap Memorial Hospital Start: 34-32-2173Amnzruub to palliative care physicianMiddletown Hospitaltart: 84-91-4187Yrylkrcb to psychiatristM[facility]letown Hospitaltart: 40-75-1098AtfbtumtnpzoIdoadsphkMiddletown Hospitaltart: 08-11-2025 End: 12-53-2494KctvbdrzoMiddletown Hospitaltart: 48-89-0509AF Chest Single viewMiddletown Hospitaltart: 50-41-9906CvsathjbtMiddletown Hospitaltart: 42-96-2824VU Chest Single [facility]: 64-70-4138FnrgexjkdMiddletown Hospitaltart: 47-95-3266RZ Chest Single [facility] Hospitaltart: 34-67-7112XsihueuivMiddletown Hospitaltart: 79-54-3146TN Chest Single [facility]tart: 45-96-7869LvlnurhkeGerman Hospital CenterStart: 71-21-9008ML Chest Single viewGerman Hospital CenterStart: 08-06-2025 [facility] CenterStart: 31-67-0440XA Chest Single viewGerman Hospital CenterStart: 89-10-7471KfjzhmvxpGerman Hospital CenterStart: 70-99-0297IH Chest Single viewGerman Hospital CenterStart: 2025 [facility] CenterStart: 08-99-4215NW Chest Single viewGerman Hospital CenterStart: 44-12-2002QhqzmxlujGerman Hospital CenterStart: 98-29-7081IhyiotajxGerman Hospital CenterStart: 15-72-3874VqxzeveryGerman Hospital CenterStart: 99-21-8763OccdzxdaxGerman Hospital CenterStart: 28-23-2637Mbcayeqlrt procedureGerman Hospital CenterStart: 07-31-2025 Urine cultureMiddletown Hospitaltart: 73-84-1221Bradqhhs to neurologNationwide Children's Hospitaltart: 16-26-1845Dbjfqqhqtpc of substanceMiddletown Hospitaltart: 07-31-2025 End: 17-63-8415QysxpbtesGerman Hospital CenterStart: 36-08-4358Edbspqyjleau [facility] CenterStart: 62-62-5808Rmxsouti admissionGerman Hospital CenterStart: 15-29-1439Obkfivqm to cardiologistGerman Hospital CenterStart: 31-37-5137Jygckayv identified in Urine by Culture Urine CultureGerman Hospital CenterStart: 45-50-8280Sdcqi culture [facility] CenterStart: 93-06-6739ZmeouqssxGerman Hospital CenterStart: 78-91-2147YcuwwkuwkGerman Hospital CenterStart: 06-10-2025 [facility] CenterStart: 50-84-9051OwftrnrntGerman Hospital CenterStart: 33-75-0154Roxnkjoqbp procedureDunlap Memorial Hospital Start: 42-72-1881Copfbziy to neurologNationwide Children's Hospitaltart: 06-07-2025 End: 85-36-4153SrgqeqjgoMiddletown Hospitaltart: 90-77-3762Knpmboonkjmy [facility]: 56-62-9726Lelwcazd admissionMiddletown Hospitaltart: 04-58-9406Ujzhxroc to cardiac rehabilitation programMiddletown Hospitaltart: 77-07-9220MiswpxegiMiddletown Hospitaltart: 05-36-1274Dgezfszbbd procedureMiddletown Hospitaltart: 99-85-0980PDE of headMR head/brain wo/w [facility]ertart: 35-57-3178UkqdqeegeMiddletown Hospitaltart: 11-90-5036Tkwlerhfsz procedureMiddletown Hospitaltart: 11-17-2024 [facility]: 66-08-0908Fgclugli to hay rake operator [facility]: 45-15-9819Lvmqslui therapy procedure [facility]: 14-54-7231Hxlprnwj to occupational therapistM[facility]letown Hospitaltart: 35-12-0804Juopency to speech and language therapy serviceMiddletown Hospitaltart: 11-17-2024 Referral to neurologistM[facility]letown Hospitaltart: 11-17-2024 Hospital admissionM[facility]letown Hospitaltart: 76-14-7917FojtkynlmMiddletown Hospitaltart: 08-21-2641Vhduvywjlwzj consultation with patient [facility]: 28-49-3028OykimsfajMiddletown Hospitaltart: 22-33-8059Ocigkcun to rehabilitation physicianMiddletown Hospitaltart: 01-21-3464Pwhbxpxofngqne of prophylactic treatmentMiddletown Hospitaltart: 46-40-4875XskwbhnjbMiddletown Hospitaltart: 45-90-0892NzqlxxcxmzueRsiumckihMiddletown Hospitaltart: 05-01-2024 Hospital admissionDunlap Memorial HospitalAmphetamines [Presence] in Urine by Screen methodDunlap Memorial HospitalAnion gap measurement [facility] HospitalBarbiturates [Presence] in Urine by Screen methodDunlap Memorial HospitalBasophils [#/volume] in Blood by Automated countDunlap Memorial HospitalBasophils/100 leukocytes in Blood by Automated [facility] HospitalBenzodiazepines [Presence] in UrineDunlap Memorial HospitalBenzoylecgonine [Presence] in UrineDunlap Memorial HospitalCannabinoids [Presence] in Urine by Screen [facility] CenterDrugs identified in UrineDunlap Memorial HospitalEosinophils/100 leukocytes in Blood by Automated count [facility] HospitalErythrocyte distribution width [Ratio] by Automated [facility] HospitalErythrocytes [#/volume] in Blood [facility] HospitalGlomerular filtration rate [Volume Rate/Area] in Serum, Plasma or Blood by CreatinineDunlap Memorial Hospital Hematocrit [Volume Fraction] of BloodDunlap Memorial HospitalHemoglobin [Mass/volume] in BloodDunlap Memorial HospitalLegionella pneumophila Ag [Presence] in UrineDunlap Memorial HospitalLeukocytes [#/volume] corrected for nucleated erythrocytes in Blood by Automated counDunlap Memorial HospitalLeukocytes [#/volume] in BloodDunlap Memorial HospitalLymphocytes [#/volume] in Blood by Automated countDunlap Memorial HospitalLymphocytes/100 leukocytes in Blood by Automated [facility] HospitalMCH [Entitic mass] by Automated countDunlap [facility] [Mass/volume] by Automated [facility]MCV [Entitic volume] by Automated [facility] Monocytes [#/volume] in Blood by Automated countDunlap Memorial HospitalMonocytes/100 leukocytes in Blood by Automated countDunlap Memorial HospitalNeutrophils [#/volume] in Blood by Automated countDunlap Memorial HospitalNeutrophils/100 leukocytes in Blood by Automated count [facility] HospitalNucleated erythrocytes [Presence] in Blood by Automated [facility] HospitalOpiates [Presence] in Urine [facility] HospitalPatient EducationOur Lady Of Mer[facility] Work Phone: [facility] referralGerman [facility] Work Phone: Phencyclidine [Presence] in UrineDunlap Memorial HospitalPlatelet mean volume [Entitic volume] in Blood by Automated count [facility] HospitalPlatelets [#/volume] in BloodMiddletown Hospitalpecimen source [Identifier] of Unspecified specimenMiddletown Hospitaltreptococcus pneumoniae Ag [Presence] in Unspecified specimenDunlap Memorial HospitalThiamine [Moles/volume] in Blood [facility] HospitalThyroglobulin Ab [Units/volume] in Serum or PlasmaDunlap Memorial HospitalThyroperoxidase Ab [Units/volume] in Serum or PlasmaH[facility] Payers DatePayer CategoryPayerPolicy [id number] 2025Self-pay [id number] [id number] [id number] [id number] 2..1.818609.3.57[id number] 2..1.739768.3.57[id number] 2.0.1.227054.3.57[id number] 2.0.1.622226.3.57[id number] 2.0.1.249817.3.579.2.732MedicaidMedicaid Out of [id number] [facility] [id number] 2.16.840.1.6[id number] 2.16.840.1.985220.3.579.2.531 [id number] 2.16.840.1.8[id number] 2.16.840.1.852004.3.579.2.531 Social History DateTypeDetailFacilityStart: 05-06-2024 End: 43-79-3046Gsjfvid smoking status NHISCurrent Heavy tobacco smokerMiddletown Hospitaltart: 88-27-8329Xoj [facility]: 11-18-2024 End: 76-71-2879WukCjib (finding)M[facility]let[facility] Hospitaltart: 11-18-2024 End: 10-76-5343Yruhsrj smoking status NHISUnknown if ever smokedMiddletown Hospitaltart: 39-73-7651ZNBU Follow upSD[facility] Work Phone: Medical Equipment Procedure CodeEquipment CodeEquipment Original TextEquipment IdentifierDatesCL STENT XENIA FRONTIER 4.0 X 30FDAStart: [id number] STENT XENIA FRONTIER 4.0 X 30 FDAStart: 06-07-2025 Goals DatePatient GoalDesired Activity/State Functional Status ZqolPcnsfgiwvzGduzdtQqzukmnz01-05-2988Wrtqlwprsy statusPatient at [facility] Work Phone: 1(887) 292-213306183431-05-9863Mcakzrhakv statusPatient at [facility] Work Phone: Mental Status GfboMhjmqvotwjGhekyvWebhzzlp40-64-6355Lijgzvizg functionCognitive Status [facility] at [facility] Work Phone: 1(121) 124-242106680298-99-6571Brruauzdg functionCognitive Status [facility] Work Phone: Clinical Notes 05-02-2024 to 06-07-2025 Note Date & EcxfNjfdIriqnekw68-95-7727 Evaluation note* Diagnosis Onset Date Resolution Status Admit Date History of seizure disorder acuteJuly 2024 8:22amPolysubstance abuseacuteJuly 2024 8:22amST elevation myocardial infarction (STEMI) of inferior wallacuteJuly 2024 8:22am [facility] Work Phone: 1(793) 216-119307-26-2025 Evaluation note* Diagnosis Onset Date Resolution Status Admit Date History of seizure disorder acuteJuly 2024 8:22amPolysubstance abuseacuteJuly 2024 8:22amST elevation myocardial infarction (STEMI) of inferior wallacuteJuly 2024 8:22amAcute and chronic respiratory failureacuteSeptember 2024 7:25pmAcute hypercapnic respiratory failureacuteSeptember 2024 7:25pmAcute hypoxic respiratory failureacuteSeptember 2024 7:25pmAKI (acute kidney injury) acuteSeptember 2024 7:25pmAspiration pneumoniaacuteSeptember 2024 7:25pmAtrial flutteracuteSeptember 2024 7:25pmBreakthrough seizureacute July 31, 2025 7:25pmCAD (coronary artery disease)acuteSeptember 2024 7: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September 2024 7:25pmHistory of noncompliance with medical treatmentacuteSeptember 2024 7:25pmHistory of seizure disorderacuteSeptember 2024 7:25pm Polysubstance abuseacuteSeptember 2024 7:25pmStented coronary arteryacute July 31, 2025 7:25pmElevated troponinresolvedSeptember 2024 7:25pm SeizureresolvedSeptember 2024 7:25pm [facility] Work Phone: 1(777) 348-390607-26-2025 Evaluation note* Diagnosis Onset Date Resolution Status Admit Date History of seizure disorder acuteJuly 2024 8:22amPolysubstance abuseacuteJuly 2024 8:22amST elevation myocardial infarction (STEMI) of inferior wallacuteJuly 2024 8:22amAcute and chronic respiratory failureacuteSeptember 2024 7:25pmAcute hypercapnic respiratory failureacuteSeptember 2024 7:25pmAcute hypoxic respiratory failureacuteSeptember 2024 7:25pmAKI (acute kidney injury) acuteSeptember 2024 7:25pmAspiration pneumoniaacuteSeptember 2024 7:25pmAtrial flutteracuteSeptember 2024 7:25pmBreakthrough seizureacute Giovanna 2024 7:25pmCAD (coronary artery disease)acuteSeptember 2024 7:25pmCounseling regarding advance directives and goals of careacute July 31, 2025 7: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 Giovanna 2024 7:25pmHistory of noncompliance with medical treatmentacute July 31, 2025 7:25pmHistory of seizure disorderacuteSeptember 2024 7:25pmPolysubstance abuseacuteSeptember 2024 7:25pmStented coronary artery acuteSeptember 2024 7:25pmElevated troponinresolvedSeptember 2024 7:25pmSeizureresolvedSeptember 2024 7:25pm [facility] Work Phone: 1(274) 697-136401-08-2025 Progress note Author Yamila Donald [facility] HospitalNote Date/TimeJanuary 2024 7:21[place] [address] Hospitalist Progress Note Signed Patient: Aaron Olivarez MR#: [id number] : 1960 Acct:[id number] Age/Sex: 64 / M Adm Date: 5 Loc: Room: [address] [place] [address] Type: ADM IN Attending Dr: Yamila Donald [...] signed by Yamila Donald MD> 11/20/24 192 [facility] Work Phone: 1(733) 249-390501-08-2025 Progress noteMar[place] [id number] Hospitalist Progress Note Signed Patient: Aaron Olivarez MR#: [id number] : 1960 Acct:[id number] Age/Sex: 64 / M Adm Date: 5 Loc: Room: [address] [place] [address] Type: ADM IN Attending Dr: Yamila Donald [...] 11/20/24 17:05 11/20/24 17:05 11/20/24 17:05 11/20/24 17:11/18/24 00:00 Narrative: GEN: NAD, not fully Cooperative [...] Donald MD 11/20/24 1723 Signed By: 11/20/241920 [facility]01-08-2025 Progress note Author Yamila Donald [facility] HospitalNote Date/TimeJanuary 2024 3:02[place] [address] Hospitalist Progress Note Signed Patient: Aaron Olivarez MR#: [id number] : 1960 Acct:[id number] Age/Sex: 64 / M Adm Date: 5 Loc: 4C Room: 6Q9544-0 Type: ADM IN Attending Dr: Yamila Donald [...] Plan Documented By: Yamila Donald MD 11/19/24 1194 Signed By: <Electronically signed by Yamila Donald MD> 11/20/24 0309 [facility] Work Phone: 1(142) 984-129001-08-2025 [place] [address] Hospitalist Progress Note Signed Patient: Aaron Olivarez MR#: [id number] : 1960 Acct:[id number] Age/Sex: 64 / M Adm Date: 5 Loc: Room: [address] [place] [address] Type: ADM IN Attending Dr: Yamila Donald [...] Donald MD 11/19/242100 Signed By: 11/20/24 0302 [facility]01-07-2025 Progress note Author Neville Bush [facility] HospitalNote Date/TimeJanuary 2024 6:02pm[place] [address] Neurology Progress Note Signed Patient: Aaron Olivarez MR#: [id number] : 1960 Acct:[id number] Age/Sex: 64 / M Adm Date: 5 Loc: Room: [address] [place] [address] Type: ADM IN Attending Dr: Yamila Donald [...] <Electronically signed by Neville Bush DO> 11/19/24 4443 [facility] Work Phone: 1(676) 469-427201-07-2025 [place] [address] Neurology Progress Note Signed Patient: Aaron Olivarez MR#: [id number] : 1960 Acct:[id number] Age/Sex: 64 / M Adm Date: 5 Loc: Room: [address] [place] [address] Type: ADM IN Attending Dr: Yamila Donald [...] DO 11/19/24 1759 Signed By: 11/19/24 1802 [facility]01-07-2025 Progress note Author Yamila Donald [facility] HospitalNote Date/TimeJanuary 2024 3:10am[place] [address] Hospitalist Progress Note Signed Patient: Aaron Olivarez MR#: [id number] : 1960 Acct:[id number] Age/Sex: 64 / M Adm Date: 5 Loc: Room: [address] [place] [address] Type: ADM IN Attending Dr: Yamila Donald [...] Chronic changes EKG shows NSR Seizure precaution Ramos Agree with EEG Neuro consultation HTN urgency Hydralazine prn Start Lisinopril Agitation The patient is aggressive and violent require restrain Kuldeepkayode was not effective Given his history of [...] Lactated Ringers IV 11/18/24 17:34 70 mls/hr .[id number] CORBY Administration Levetiracetam 500 mg/ Dextrose 105 [...] signed by Yamila Donald MD> 11/19/24 0310 [facility] Work Phone: 1(296) 917-902001-07-2025 [place] [address] Hospitalist Progress Note Signed Patient: Aaron Olivarez MR#: [id number] : 1960 Acct:[id number] Age/Sex: 64 / M Adm Date: 5 Loc: Room: [address] [place] [address] Type: ADM IN Attending Dr: Yamila Donald [...] Chronic changes EKG shows NSR Seizure precaution Ramos Agree with EEG Neuro consultation HTN urgency Hydralazine prn Start Lisinopril Agitation The patient is aggressive and violent require restrain Oliverio was not effective Given his history of [...] Lactated Ringers IV 11/18/24 17:34 70 mls/hr .[id number] CORBY Administration Levetiracetam 500 mg/ Dextrose 105 [...] MD 11/18/24 1646 Signed By: 11/19/24 0310 [facility]01-06-2025 Consult note Author Neville Bush [facility] HospitalNote Date/TimeJanuary 2024 5:44[place] [address] Neurology Consult Note Signed Patient: Aaron Olivarez MR#: [id number] : 1960 Acct:[id number] Age/Sex: 64 / M Adm Date: 5 Loc: Room: [address] [place] [address] Type: ADM IN Attending Dr: Yamila Donald MD Copies to: DO Sulaiman Mosquera DO Marwan Wassouf, MD~ HPI Consult Date: 11/18/24 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 Meds Medications and [...] Dung Chakraborty M.D.11/17/2024 1:26 PM Dictation Location: [facility]--17 Assessment/Plan (1) Seizure: Plan CONSULT REASON: Seizure, [...] <Electronically signed by Neville Bush DO> 11/18/24 [facility] Work Phone: 1(264) 748-996601-06-2025 Consult note Author Julito Mosley [facility] HospitalNote Date/TimeJanuary 2024 4:27[place] [address] Cardiology Consult Note Signed Patient: Aaron Olivarez MR#: [id number] : 1960 Acct:[id number] Age/Sex: 64 / M Adm Date: 5 Loc: Room: [address] [place] [address] Type: ADM INOo Attending Dr: Yamila Donald MD Copies to: Sulaiman L DegDO Julito greenwood MD Marwan Wassouf, MD~ Cardiology HPI History [...] negative unless noted below or in HPI [facility] Medical History Heavy smoker Heroin use H/O ETOH abuse COPD (chronic obstructive pulmonary disease) Social History Smoking Status: Unknown if ever smoked Substance Use Type: Marijuana, Heroin and Methamphetamine Social History Comments: Moved from [place] to [place] to live with son, Lamin. Meds Medications [...] Air 2 11/18/24 14:26 11/18/24 14:26 11/18/24 14:11/18/24 14:11/18/24 14:11/18/24 14:11/18/24 00:00 Narrative: Physical [...] x10E3/uL Lymph # (Auto) 1.4 (1.00-4.8) x10E3/uL [place] # (Auto) 0.6 (0.0-0.8) x10E3/uL Eos # [...] @ 70 1000 / 1000 mls/hr IV .[id number] [facility] Rx#: [id number] levETIRAcetam 500 mg In 105 / 105 Dextrose 5 % in Water 100 ml @ 420 mls/hr IV BID [facility] Rx#: [id number] Output: Urine 500 / 500 Other: # [...] signed by Julito Mosley MD> 11/18/24 1627 [facility] Work Phone: 1(792) 589-187801-06-2025 [place] [address] Neurology Consult Note Signed Patient: Aaron Olivarez MR#: [id number] : 1960 Acct:[id number] Age/Sex: 64 / M Adm Date: 5 Loc: Room: [address] [place] [address] Type: ADM IN Attending Dr: Yamila Donald MD Copies to: DO Sulaiman Mosquera DO Marwan Wassouf, MD~ HPI Consult Date: 11/18/24 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 Meds Medications and [...] Dung Chakraborty M.D.11/17/2024 8:43 AM Dictation Location: [facility]--17 Head CTA 11/17/24 08:25 IMPRESSION: No evidence of focal stenosis, aneurysmal dilatation, dissection or occlusion. No evidence of acute traumatic injury. The cervical spine and upper thoracic spine are grossly intact. Impression dictated by: Dung Chakraborty M.D.11/17/2024 8:59 AM Dictation Location: [facility]- Chest X-Ray 11/17/24 12:57 IMPRESSION: No acute cardiopulmonary pathology. Impression dictated by: Dung Chakraborty M.D.11/17/2024 1:26 PM Dictation Location: [facility]--17 Assessment/Plan (1) Seizure: Plan CONSULT REASON: Seizure, [...] Bush DO 11/18/241737 Signed By: 11/18/24 1744 [facility]01-06-2025 [place] [address] Cardiology Consult Note Signed Patient: Aaron Olivarez MR#: [id number] : 1960 Acct:[id number] Age/Sex: 64 / M Adm Date: 5 Loc: Room: [address] [place] [address] Type: ADM INOo Attending Dr: Yamila Donald [...] negative unless noted below or in HPI [facility] Medical History Heavy smoker Heroin use H/O ETOH abuse COPD (chronic obstructive pulmonary disease) Social History Smoking Status: Unknown if ever smoked Substance Use Type: Marijuana, Heroin and Methamphetamine Social History Comments: Moved from [place] to [place] to live with son, Lamin. Meds Medications [...] 179/103 H 98 Room Air 2 11/18/24 14:11/18/24 14:11/18/24 14:11/18/24 14:11/18/24 14:11/18/24 14:11/18/24 00:00 Narrative: [...] x10E3/uL Lymph # (Auto) 1.4 (1.00-4.8) x10E3/uL [place] # (Auto) 0.6 (0.0-0.8) x10E3/uL Eos # [...] @ 70 1000 / 1000 mls/hr IV .[id number] [facility] Rx#: [id number] levETIRAcetam 500 mg In 105 / 105 Dextrose 5 % in Water 100 ml @ 420 mls/hr IV BID [facility] Rx#: [id number] Output: Urine 500 / 500 Other: # [...] MD 05/07 1612 Signed By: 11/18/24 1627 [facility]01-06-2025 Evaluation note* Diagnosis Onset Date Resolution Status Admit Date Acute CVA (cerebrovascular accident) acuteJanuary 2024 1:02pmAltered mental statusacuteJanuary 2024 1:02pm SeizureacuteJanuary 2024 1:02pmT wave inversion in EKGacuteJanuary 2024 1:02pm [facility] Work Phone: 1(726) 245-591401-05-2025 Progress note Author Chaz Frey [facility] HospitalNote Date/TimeJanuary 2024 2:[address] [address] Progress Note Signed Patient: Aaron Olivarez MR#: [id number] : 1960 Acct:[id number] Age/Sex: 64 / M Adm Date: 5 Loc: Room: [address] [place] [address] Type: ADM INOo Attending Dr: Chaz Frey [...] signed by Chaz Frey MD> 11/17/24 1400 [facility] Work Phone: 1(635) 957-722401-05-2025 History and physical note Author Chaz Frey [facility] HospitalNote Date/TimeJanuary 2024 1:11[place] [address] Hospitalist H&P Signed Patient: Aaron Olivarez MR#: [id number] : 1960 Acct:[id number] Age/Sex: 64 / M Adm Date: 5 Loc: Room: [address] [place] [address] Type: ADM INOo Attending Dr: Chaz Frey [...] was made not to transfer him to [facility] for thrombectomy. On-call stroke team [facility] for neurological andseizure workup with recommendation [...] patient had stroke before or seizure history. [facility] Medical History Heavy smoker Heroin use H/O ETOH abuse COPD (chronic obstructive pulmonary disease) Social History Smoking Status: Heavy tobacco smoker Social History Comments: Moved from [place] to [place] to live with son, Lamin. Meds Medications [...] % (Auto) 4.4 % (.) 11/17/24 08: [place] % (Auto) 3.3 % (.) 11/17/24 08: Eos % (Auto) 0.1 % (.) 11/17/24 08: Baso % (Auto) 0.4 % (.) 11/17/24 08: Nucleat RBC Rel Count 0.1 /100 WBC (0-0.5) 11/17/24 08: Neut # (Auto) 9.2 x10E3/uL (1.8-7.7) H 11/17/24 08: Lymph # (Auto) 0.4 x10E3/uL (1.00-4.8) L 11/17/24 08: [place] # (Auto) 0.3 x10E3/uL (0.0-0.8) 11/17/24 08: [...] Est GFR (CKD-EPI) > 60.0 mL/Min 11/17/24 08:28 Glucose 163 mg/dL (70-100) H 11/17/24 08:28 [...] admit him to the medical floor at [facility] I started him on aspirin and statin. [...] signed by Chaz Frey MD> 11/17/24 1311 [facility] Work Phone: 1(909) 328-364501-05-2025 [place] [address] Progress Note Signed Patient: Aaron Olivarez MR#: [id number] : 1960 Acct:[id number] Age/Sex: 64 / M Adm Date: 5 Loc: Room: [address] [place] [address] Type: ADM INOo Attending Dr: Chaz Frey [...] MD 11/17/24 1359 Signed By: 11/17/24 1400 [facility]01-05-2025 [place] [address] Hospitalist H&P Signed Patient: Aaron Olivarez MR#: [id number] : 1960 Acct:[id number] Age/Sex: 64 / M Adm Date: 5 Loc: Room: [address] [place] [address] Type: ADM INOo Attending Dr: Chaz Frey [...] was made not to transfer him to [facility] for thrombectomy. On-call stroke team recommended [facility] for neurological andseizure workup with recommendation [...] patient had stroke before or seizure history. [facility] Medical History Heavy smoker Heroin use H/O ETOH abuse COPD (chronic obstructive pulmonary disease) Social History Smoking Status: Heavy tobacco smoker Social History Comments: Moved from [place] to [place] to live with son, Lamin. Meds Medications [...] % (Auto) 4.4 % (.) 11/17/24 08: [place] % (Auto) 3.3 % (.) 11/17/24 08:28 Eos % (Auto) 0.1 % (.) 11/17/24 08: Baso % (Auto) 0.4 % (.) 11/17/24 08: Nucleat RBC Rel Count 0.1 /100 WBC (0-0.5) 11/17/24 08:28 Neut # (Auto) 9.2 x10E3/uL (1.8-7.7) H 11/17/24 08:28 Lymph # (Auto) 0.4 x10E3/uL (1.00-4.8) L 11/17/24 08:28 [place] # (Auto) 0.3 x10E3/uL (0.0-0.8) 11/17/24 08:28 Eos # (Auto) 0.0 x10E3/uL (0.0-0.45) 11/17/24 08:28 Baso # (Auto) 0.0 x10E3/uL (0.0-0.2) 11/17/24 08: Monocyte Dist Width 15.39 % (0.00-20.00) 11/17/24 08: PT 11.9 Seconds (9.0-12.9) 11/17/24 08: INR 1.0 11/17/24 08: APTT 22.3 Seconds (25.1-36.5) L 11/17/24 08:28 PHA Creatinine Clear N/A 11/17/24 08:28 Sodium 142 mmol/L (136-145) 11/17/24 08:28 Potassium 4.2 mmol/L (3.5-5.1) 11/17/24 08: Chloride 104 mmol/L (98-107) 11/17/24 08:28 Carbon Dioxide 29.2 mmol/L (21.0-31.0) 11/17/24 08: Anion Gap 13.0 mEq/L (6.0-15.0) 11/17/24 08:28 BUN 16 mg/dL (7-25) 11/17/24 08: Creatinine 1.27 mg/dL (0.70-1.30) 11/17/24 08:28 Est GFR (CKD-EPI) > 60.0 mL/Min 11/17/24 08:28 Glucose 163 mg/dL (70-100) H 11/17/24 08:28 [...] (3.5-5.7) 11/17/24 08:28 Globulin 2.5 gm/dL 11/17/24 08: Albumin/Globulin Ratio 1.7 11/17/24 08:28 Prolactin 14.22 ng/mL (2.64-13.13) H 11/17/24 08:28 Ethyl Alcohol < 10 mg/dL 11/17/24 08: % Ethyl Alcohol TNP 11/17/24 08:28 Assessment [...] admit him to the medical floor at [facility] I started him on aspirin and statin. [...] MD 11/17/24 1301 Signed By: 11/17/24 1311 [facility]01-05-2025 Evaluation note* Diagnosis Onset Date Resolution Status Admit Date Acute CVA (cerebrovascular accident) acuteJanuary 2024 9:54amAltered mental statusacuteJanuary 2024 9:54am SeizureacuteJanuary 2024 9:54am [facility] Work Phone: 1(537) 259-865801-05-2025 Radiology Diagnostic study [facility] [place] [address] [place] [address] CT Scan Report Signed Patient: Aaron Oilvarez MR#: [id number] : 1960 Acct:[id number] Age/Sex: 64 / M ADM Date: 5 Loc: ER Room: Type: PRE ER Attending Dr: Copies to: Jamin Sepulveda DO~ Ordering Provider: Jamin Sepulveda DO Date of Service: 11/17/24 CT/CT angio head: cva ([id number]) CT/CT angio neck: cva CT angio head, [...] Dung Chakraborty M.D.11/17/2024 8:59 AM Dictation Location: [place] [address] Transcribed By: [facility] 11/17/24858 Dictated By: Dung Chakraborty II, MD 11/17/24 0852 Signed By: 11/17/24858 [facility] Work Phone: 1(828) 818-637101-05-2025 Radiology [facility] [place] [address] [place] [address] CT Scan Report Signed Patient: Aaron Olivarez MR#: [id number] : 1960 Acct:[id number] Age/Sex: 64 / M ADM Date: 5 Loc: ER Room: Type: PRE ER Attending Dr: Copies to: Jamin Sepulveda DO~ Ordering Provider: Jamin Sepulveda DO Date of Service: 11/17/24 CT/CT head [...] Dung Chakraborty M.D.11/17/2024 8:43 AM Dictation Location: [place] [address] Transcribed By: [facility] 11/17/2443 Dictated By: Dung Chakraborty II, MD 11/17/2437 Signed By: 11/17/2443 [facility] Work Phone: 1(517) 824-773609-01-2024 NoteADDENDUM: Results were called to the ordering [...] Mati Valerio MD 07/14/24 Edited Result - [facility]06-24-2024 Discharge summary Author Kiko Maldonado [facility] May 06, 2024 2:21pmNote Date/TimeJune 2023 11:44[place] [address] Discharge Summary Signed Patient: Aaron Olivarez MR#: [id number] : 1960 Acct:[id number] Age/Sex: 63 / M Adm Date: 4 Loc: Room: [address] [place] [address]: Kiko Maldonado MD Copies to: Kiko Erica, MD Sulaiman L Degroh, DO~ Providers Date of Discharge: 05/06/24 Discharging [...] He presented to the emergency department at [facility] on May 01, with complaints of [...] signed by Kiko Maldonado MD> 05/06/24 1421 [facility] Work Phone: 1(367) 427-138106-24-2024 Progress note Author Thanh Raina [facility] May 06, 2024 10:16amNote Date/TimeJune 2023 10:16amMar[place] [id number] Pulmonology Progress Note Signed Patient: Aaron Olivarez MR#: [id number] : 1960 Acct:[id number] Age/Sex: 63 / M Adm Date: 4 Loc: Room: [address] [place] [address] Type: ADM IN Attending Dr: Janae Jose MD Copies to: ~ Date of Service: 05/06/2024 Subjective Subjective Narrative: Patient voices no complaints at the time my evaluation. He is very interested in being discharged today as he can relax at home as opposed to being in the hospital. He knows he is in a hospital butdoes not know that he is at [facility] in [place]. He also knows it is 2023. Exam [...] Last 24 Hours: Intake & Output 05/05/24 05/06/2424 23:59 07:59 15:59 Intake Total 550 / [...] drug abuse. Patient has been weaned off oxygenand is on room air. I believe the [...] signed by MD Thanh Paris> 05/06/24 1016 [facility] Work Phone: 1(944) 308-417806-23-2024 Progress note Author Janae Jose [facility] May 05, 2024 1:27pmNote Date/TimeJune 2023 1:22pm[place] [address] Hospitalist Progress Note Signed Patient: Aaron Olivarez MR#: [id number] : 1960 Acct:[id number] Age/Sex: 63 / M Adm Date: 4 Loc: Room: [address] [place] [address] Type: ADM IN Attending Dr: Janae Jose [...] down without significant elevation. Suspecting type II WI from hypoxia. Echocardiogram showing preserved ejection fraction with mild LVH. No wall motion abnormality seen. EKG negative for acute ischemic changes. Documented By: Janae Jose MD 05/05/24 1312 Signed By: <Electronically signed by Janae Jose MD> 05/05/24 1328 [facility] Work Phone: 1(460) 863-740406-23-2024 Progress note Author Víctor Agrawal [facility] May 05, 2024 11:29amNote Date/TimeJune 2023 11:[address] [address] Pulmonology Progress Note Signed Patient: Aaron Olivarez MR#: [id number] : 1960 Acct:[id number] Age/Sex: 63 / M Adm Date: 4 Loc: Room: [address] [place] [address] Type: ADM IN Attending Dr: Janae Jose [...] edema, no clubbing. Skin: No skin rash PHP SOFTWARE ENGINEER: Sleepy, easily arousable, no focal deficits. Objective [...] signed by Víctor Agrawal MD> 05/05/24 1129 [facility] Work Phone: 1(361) 808-300106-22-2024 Progress note Author Janae Jose [facility] May 04, 2024 12:19pmNote Date/TimeJune 2023 12:13[place] [address] Hospitalist Progress Note Signed Patient: Aaron Olivarez MR#: [id number] : 1960 Acct:[id number] Age/Sex: 63 / M Adm Date: 4 Loc: Room: [address] [place] [address] Type: ADM IN Attending Dr: Janae Jose [...] down without significant elevation. Suspecting type II WI from hypoxia. Echocardiogram showing preserved ejection fraction with mild LVH. No wall motion abnormality seen. Negative for acute ischemic changes. Documented By: Janae Jose MD 05/04/241209 Signed By: <Electronically signed by Janae Jose MD> 05/04/24 1219 [facility] Work Phone: 1(601) 222-511206-22-2024 Progress note Author Víctor Agrawal [facility] May 04, 2024 12:03pmNote Date/TimeJune 2023 11:54[place] [address] Pulmonology Progress Note Signed Patient: Aaron Olivarez MR#: [id number] : 1960 Acct:[id number] Age/Sex: 63 / M Adm Date: 4 Loc: Room: [address] [place] [address] Type: ADM IN Attending Dr: Janae Jose [...] Musculoskeletal: No edema Skin: No skin rash PHP SOFTWARE ENGINEER: Drowsy and confused, does not interact or [...] signed by Víctor Agrawal MD> 05/04/24 1203 [facility] Work Phone: 1(943) 225-425106-21-2024 Progress note Author Víctor Agrawal [facility] May 03, 2024 1:57pmNote Date/TimeJune 2023 1:57[place] [address] Pulmonology Progress Note Signed Patient: Aaron Olivarez MR#: [id number] : 1960 Acct:[id number] Age/Sex: 63 / M Adm Date: 4 Loc: Room: [address] [place] [address] Type: ADM IN Attending Dr: Janae Jose MD Copies to: ~ Date of Service: 05/03/2024 Subjective Subjective Narrative: Patient refused ABGs yesterday. Slightly restless this morning, he is on 6 L with oxygen saturationin the mid to low 90s. Blood pressure [...] Musculoskeletal: No edema Skin: No skin rash PHP SOFTWARE ENGINEER: Drowsy, 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 No focal deficits Objective Intake [...] with oxygen saturation low 90s, patient at riskof CO2 retention -O2 via regular nasal cannula, [...] <Electronically signed by Víctor Agrawal MD> 05/03/24 2057 [facility] Work Phone: 1(532) 391-552406-21-2024 Progress note Author Janae Jose [facility] May 03, 2024 12:57pmNote Date/TimeJune 2023 12:57[place] [address] Hospitalist Progress Note Signed Patient: Aaron Olivarez MR#: [id number] : 1960 Acct:[id number] Age/Sex: 63 / M Adm Date: 4 Loc: Room: [address] [place] [address] Type: ADM IN Attending Dr: Janae Jose [...] 05/03/24 12:00 05/03/24 12:00 05/03/24 12:00 05/03/24 12:05/03/24 12:00 FiO2 40 05/03/24 12:00 Const Other: [...] down without significant elevation. Suspecting type II WI from hypoxia. Pending echocardiogram to assess LV function and wall motion. Will obtain twelve-lead EKG. Documented By: Janae Jose MD 05/03/24 1247 Signed By: <Electronically signed by Janae Jose MD> 05/03/24 1257 [facility] Work Phone: 1(217) 192-283606-20-2024 Progress note Author Janae Jose [facility] May 02, 2024 1:49pmNote Date/TimeJune 2023 1:[address] [address] Event Note Signed Patient: Aaron Olivarez MR#: [id number] : 1960 Acct:[id number] Age/Sex: 63 / M Adm Date: 4 Loc: Room: [address] [place] [address] Type: ADM IN Attending Dr: Janae Jose MD Copies to: Sulaiman Feldman, DO Janae Jose MD~ Status Event Note Event Note DATE OF EVENT: 05/02/24 TIME OF EVENT: 13:48 EVENT DETAILS: Patient was admitted after midnight please refer to H&P for details regarding his presentation.Patient currently on 4 L oxygen and resting comfortably afterreceiving IV Ativan. He is moving all 4 extremities. Case discussed with bedside nurse with plan to discontinue IV fluids. TIME W/PATIENT (# MINS): 15 Documented By: Janae Jose MD 05/02/24 1348 Signed By: <Electronically signed by Janae Jose MD> 05/02/24 1349 [facility] Work Phone: 1(509) 770-764206-20-2024 Consult note Author Víctor Agrawal [facility] May 02, 2024 1:47pmNote Date/TimeJune 2023 1:42[address] [address] Pulmonology Consult Note Signed Patient: Aaron Olivarez MR#: [id number] : 1960 Acct:[id number] Age/Sex: 63 / M Adm Date: 4 Loc: Room: [address] [place] [address] Type: ADM IN Attending Dr: Janae Jose MD Copies to: DO Janae Barnard MD Mohamed A Swedeh, MD~ HPI Date/Time of Consultation: Date of Service: 05/02/2024 Time of Service: 13:37 Consulting Provider: Víctor Agrawal Requesting Provider: Janae Jose History of Present Illness History of present illness: Patient is 63 year old male with past medical history significant for chronic obstructive pulmonarydisease, chronic hypoxemic respiratory failure, nicotine dependence, drug abuse, alcohol abuse and history of hypertension was transferred from [facility] directly into ICU. Apparently, patient was e xperiencing productive cough with thick yellow phlegm and increased shortness of breath prior to his presentation to [facility]. Patient was found by familylethargic and difficult to arouse, oxygen saturation was 70% on room air, venousblood gas showed pCO2 of 80 with pH of 7.32. Patient refused BiPAP. Chest CT angiogram reported negative for PE, showed right lower lobe consolidation consistent with pneumonia. [facility] Social History Smoking Status: Heavy [...] Musculoskeletal: No edema Skin: No skin rash PHP SOFTWARE ENGINEER: Drowsy, no focal deficits Results - Pulmonology [...] signed by Víctor Agrawal MD> 05/02/24 1347 [facility] Work Phone: 1(880) 675-703806-20-2024 History and physical note Author Magdy Douglass [facility] May 02, 2024 7:12amNote Date/TimeJune 2023 7:11[place] [address] Hospitalist H&P Signed Patient: Aaron Olivarez MR#: [id number] : 1960 Acct:[id number] Age/Sex: 63 / M Adm Date: 4 Loc: Room: [address] [place] [address] Type: ADM IN Attending Dr: Janae Jose MD Copies to: MD Sulaiman Ruggiero DO Mazhar Rahman, MD~ HPI DATE OF EXAMINATION: 05/01/24 CHIEF COMPLAINT: cough, dyspnea, altered mental status HISTORY OF PRESENT ILLNESS: 63 year old man with history of HTN, COPD, tobacco abuse who presented to [facility] with the above complaints. Per the patient for 2-3 days prior to admission he was having a cough productiveof thick yellow sputum and increasing dyspnea with exertion. On the date of presentation family members went to see thepatient and found that he was lethargic and difficult to arouse so he was brought to [facility] for evaluation. On arrival there pulse oximetry was reportedly 70% on room air. initial VBG with pH of7.32, PCO2 of 80. labs notable for WBC [...] negative except as noted in the HPI PMFSH Social History Smoking Status: Heavy tobacco smoker [...] % (Auto) 7.8 % (.) 05/02/24 04:20 [place] % (Auto) 8.2 % (.) 05/02/24 04:20 Eos % (Auto) 0.0 % (.) 05/02/24 04:20 Baso % (Auto) 0.2 % (.) 05/02/24 04:20 Nucleat RBC Rel Count 0.2 /100 WBC (0-0.5) 05/02/24 04:20 Neut # (Auto) 6.3 x10E3/uL (1.8-7.7) 05/02/24 04:20 Lymph # (Auto) 0.6 x10E3/uL (1.00-4.8) L 05/02/24 04:20 [place] # (Auto) 0.6 x10E3/uL (0.0-0.8) 05/02/24 04:20 [...] setting as: INPATIENT because of an expectation ofan over 2 midnight stay. Estimated length of stay (# of days): 3 Documented By: Magdy Douglass MD 05/02/24 0658 Signed By: <Electronically signed by Magdy Douglass MD> 05/02/24 0712 [facility] Work Phone: Consult note Author Patricio Galaviz [facility] May 06, 2024 1:01pmNote Date/TimeJune 2023 1:01pm[place] [address] Physiatry (Rehab) Consult Note Signed Patient: Aaron Olivarez MR#: [id number] : 1960 Acct:[id number] Age/Sex: 63 / M Adm Date: 4 Loc: Room: [address] [place] [address] Type: ADM IN Attending Dr: Kiko Maldonado [...] scale per protocol. Blood pressure improved with medicationadjustments. Eventually his oxygen was weaned off. Therapy recommended rehabilitation unit, howeverpatient was refusing placement. He is demanding patricia [...] negative unless noted below or in HPI [facility] Medical History Heavy smoker Heroin use H/O ETOH abuse COPD (chronic obstructive pulmonary disease) Social History Smoking Status: Heavy tobacco smoker Social History Comments: Moved from [place] to [place] to live with sonLamin. Meds Medications and [...] and obtained and summated medical records and haveordered follow up lab tests and imaging studies [...] his oxygen was weaned off. Therapy recommended rehabilitationunit, however patient was refusing placement. He is [...] day of encounter, reviewed the history and therelevant portions of the chart, including current orders, allied health and compliance consultant notes, labs/imaging and performed [place] elements of exam and I formulated the plan of care and facilitated the medical decision making. I completed a substantive portion of this encounter, the medical decision making portion of this note in its entirety, including Allied health note review, nursing note review, compliance consultant note review, discussion with nursing and case management, and more than 50% of my time was spent on counseling and coordination of care, time spent 60 minutes Documented By: Patricio Galaviz MD 05/06/24 1251 Signed By: <Electronically signed by Patricio Galaviz MD> 05/06/24 1301 [facility] Work Phone: Consult note Author Julito Mosley [facility] HospitalNote Date/TimeJanuary 2024 4:27[place] [address] Cardiology Consult Note Signed Patient: Aarno Olivarez MR#: [id number] : 1960 Acct:[id number] Age/Sex: 64 / M Adm Date: 5 Loc: Room: [address] [place] [address] Type: ADM INOo Attending Dr: Yamila Donald [...] negative unless noted below or in HPI [facility] Medical History Heavy smoker Heroin use H/O ETOH abuse COPD (chronic obstructive pulmonary disease) Social History Smoking Status: Unknown if ever smoked Substance Use Type: Marijuana, Heroin and Methamphetamine Social History Comments: Moved from [place] to [place] to live with son, Lamin. Meds Medications [...] 179/103 H 98 Room Air 2 11/18/24 14:11/18/24 14:11/18/24 14:11/18/24 14:11/18/24 14:11/18/24 14:11/18/24 00:00 Narrative: [...] x10E3/uL Lymph # (Auto) 1.4 (1.00-4.8) x10E3/uL [place] # (Auto) 0.6 (0.0-0.8) x10E3/uL Eos # [...] @ 70 1000 / 1000 mls/hr IV .[id number] CORBY Rx#: [id number] levETIRAcetam 500 mg In 105 / 105 Dextrose 5 % in Water 100 ml @ 420 mls/hr IV BID CORBY Rx#: [id number] Output: Urine 500 / 500 Other: # [...] signed by Julito Mosley MD> 11/18/24 1627 [facility] Work Phone: Consult note Author Neville Bush [facility] HospitalNote Date/TimeJanuary 2024 5:44pm[place] [address] Neurology Consult Note Signed Patient: Aaron Olivarez MR#: [id number] : 1960 Acct:[id number] Age/Sex: 64 / M Adm Date: 5 Loc: Room: [address] [place] [address] Type: ADM IN Attending Dr: Yamila Donald MD Copies to: DO Sulaiman Mosquera DO Marwan Wassouf, MD~ HPI Consult Date: 11/18/24 Fire Captain Marine: Neville Bush DO [facility] Medical History Heavy smoker Heroin use H/O ETOH abuse COPD (chronic obstructive pulmonary disease) Social History Smoking Status: Unknown if ever smoked Substance Use Type: Marijuana, Heroin and Methamphetamine Social History Comments: Moved from [place] to [place] to live with son, Lamin. Meds Medications [...] <Electronically signed by Neville Bush DO> 11/18/24 1749 [facility] Work Phone: Evaluation note* Diagnosis Onset Date Resolution Status Acute exacerbation of chronic obstructiv e pulmonary disease (COPD) acuteAcute respiratory failure with hypoxia and hypercapniaacuteAlcohol abuse acuteAlcohol withdrawalacuteCommunity acquired pneumoniaacuteElevated troponin acuteHistory of heroin abuseacuteMetabolic encephalopathyacuteNicotine dependenceacuteRight lower lobe pneumoniaacuteTobacco abuseacuteUncontrolled hypertensionacute [facility] Work Phone: Progress note Author Yamila Donald [facility] HospitalNote Date/TimeJanuary 2024 3:10am[place] [address] Hospitalist Progress Note Signed Patient: Aaron Olivarez MR#: [id number] : 1960 Acct:[id number] Age/Sex: 64 / M Adm Date: 5 Loc: Room: [address] [place] [address] Type: ADM IN Attending Dr: Yamila Donald [...] Tablet PO 11/18/25 08:59 Not Given DAILY [facility] Atorvastatin Calcium 40 mg 11/17/24 21:00 [...] Lactated Ringers IV 11/18/24 17:34 70 mls/hr .[id number] [facility]BY Administration Levetiracetam 500 mg/ Dextrose 105 [...] signed by Yamila Donald MD> 11/19/24 0310 [facility] Work Phone: Progress note Author Neville Bush [facility] HospitalNote Date/TimeJanuary 2024 6:02pm[place] [address] Neurology Progress Note Signed Patient: Aaron Olivarez MR#: [id number] : 1960 Acct:[id number] Age/Sex: 64 / M Adm Date: 5 Loc: Room: [address] [place] [address] Type: ADM IN Attending Dr: Yamila Donald [...] follow-up. Documented By: Neville Bush DO 11/19/24 8307 Signed By: <Electronically signed by Neville Bush DO> 11/19/24 3600 [facility] Work Phone: Progress note Author Yamila Donald [facility] HospitalNote Date/TimeJanuary 2024 3:02[place] [address] Hospitalist Progress Note Signed Patient: Aaron Olivarez MR#: [id number] : 1960 Acct:[id number] Age/Sex: 64 / M Adm Date: 5 Loc: Room: [address] [place] [address] Type: ADM IN Attending Dr: Yamila Donald [...] 11/19/24 19:00 11/19/24 19:00 11/19/24 19:00 11/19/24 19:11/18/24 00:00 Narrative: GEN: NAD, not Cooperative NECK: [...] Tablet PO 11/18/25 08:59 Not Given DAILY [facility] Atorvastatin Calcium 40 mg 11/17/24 21:00 [...] Tablet PO 11/18/25 16:49 Not Given DAILY [facility] Lorazepam 1 mg 11/18/24 23:27 Lorazepam 2 Mg/Ml Vial IV-PUSH 05/17/25 01:05 Q4H PRN Agitation Lorazepam 2 mg 11/18/24 23:27 11/19/24 20:14 Lorazepam 2 Mg/Ml Vial IV-PUSH 05/17/25 16:43 2 mg Q4H PRN Administration Agitation Multivitamins 1 tab 11/19/24 09:00 11/19/24 09:19 Multivitamin 1 Tab Tablet PO 11/19/25 08:59 Not Given DAILY [facility] Sodium Chloride 0 ml 11/17/24 08:25 11/19/24 [...] signed by Yamila Donald MD> 11/20/24 0302 [facility] Work Phone: Progress note Author Yamila Donald [facility] HospitalNote Date/TimeJanuary 2024 7:21[place] [address] Hospitalist Progress Note Signed Patient: Aaron Olivarez MR#: [id number] : 1960 Acct:[id number] Age/Sex: 64 / M Adm Date: 5 Loc: Room: [address] [place] [address] Type: ADM IN Attending Dr: Yamila Donald [...] signed by Yamila Donald MD> 11/20/24 1921 [facility] Work Phone: Reason for referral (narrative)No reason for referral information availableGerman Hospital [facility]tr Work Phone: Summary Purpose Family History [...] on, COPD Pneumonia Exacerbation, COPD Pneumonia Exacerbation, COPDReason for VisitAcute exacerbation of chronic obstructive pulmonary disease (COPD) Acute respiratory failure with hypoxia and hypercapnia Alcohol abuse Alcohol withdrawal Community acquired pneumonia Elevated troponin History of heroin abuse Metabolic encephalopathy Nicotine dependence Right lower lobe pneumonia Tobacco abuse Uncontrolled hypertension Chief Complaint Admit Date neuro symptoms/fall November 17, 2024 9: 54am Reason for Visit Admit Date Acute CVA (cerebrovascular accident) [facility] 2024 9:54am Altered mental status November 17, 2024 9:54am Seizure November 17, 2024 9: 54am Chief Complaint Admit Date neuro symptoms/fall November 18, 2024 1: 02pm neuro symptoms/fall November 18, 2024 4: 12pm Reason for Visit Admit Date Acute CVA (cerebrovascular accident) [facility] 2024 1:02pm Altered mental status November 18, 2024 1:02pm Seizure November 18, 2024 1: 02pm T wave inversion in EKG November 18 1:02pm Chief Complaint Admit Date 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 June 07, 2025 8:22 am Reason for Visit Admit Date History of seizure disorder June 07 8:22am Polysubstance abuse June 07, 2025 8:[address] elevation myocardial infarction (STEM I) of inferior wall June 07, 2025 8:22am Chief Complaint Admit Date 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 June 07, 2025 8:22 am Unknown July 31, 2025 1:55pm Respiratory Failure July 31, 2025 7:25pm Reason for Visit Admit Date History of seizure disorder June 07 8:22am Polysubstance abuse June 07, 2025 8:[address] elevation myocardial infa rction (STEMI) of inferior wall June 07, 2025 8:22am Acute and chronic respiratory failure Se ptember 2024 7:25pm Acute hypercapnic respiratory failure Se ptember 2024 7:25pm Acute hypoxic respiratory failure Septem 2024 7:25pm KORIN (acute kidney injury) July 7:25pm Aspiration pneumonia July 31 7:25pm Atrial flutter July 31, 2025 7:25pm Breakthrough seizure July 31 7:25pm CAD (coronary artery disease) July 31, 2025 7:25pm 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, 2025 7:25pm History of noncompliance with medical tr eatment July 31, 2025 7:25pm History of seizure disorder July 312024 7:25pm Polysubstance abuse July 31, 2025 7:25pm Stented coronary artery July 31, 2025 7:25pm Elevated troponin July 31, 2025 7:25pm Seizure July 31, 2025 7:25pm Chief Complaint Admit Date 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 June 07, 2025 8:22 am Unknown July 31, 2025 1:55pm Respiratory Failure July 31, 2025 7:25pm Respiratory Failure August 07, 2025 12:00am Respiratory Failure August 14, 2025 12 :00am Reason for Visit Admit Date History of seizure disorder June 07 8:22am Polysubstance abuse June 07, 2025 8:[address] elevation myocardial infa rction (STEMI) of inferior wall June 07, 2025 8:22am Acute and chronic respiratory failure Se ptember 2024 7:25pm Acute hypercapnic respiratory failure Se ptember 2024 7:25pm Acute hypoxic respiratory failure Septem 2024 7:25pm KROIN (acute kidney injury) July 7:25pm Aspiration pneumonia July 31 7:25pm Atrial flutter July 31, 2025 7:25pm Breakthrough seizure July 31 7:25pm CAD (coronary artery disease) July 31, 2025 7:25pm Counseling regarding advance directives and goals of care July 31, 2025 7:25pm 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, 2025 7:25pm History of noncompliance with medical tr eatment July 31, 2025 7:25pm History of seizure disorder July 312024 7:25pm Polysubstance abuse July 31, 2025 7:25pm Stented coronary artery July 31, 2025 7:25pm Elevated troponin July 31, 2025 7:25pm Seizure Giovanna 18th, 2025 7:25pm Additional Source Comments (unrecognized sect ion and content) No Status Records FoundNo Status Records FoundNo Status Records FoundNo Status Records FoundNo Status Records FoundNo Status Records FoundNo Status Records FoundNo Status Records FoundNo Status Records FoundNo Status Records FoundNo Status Records Found INFORMATION SOURCE (unrecogn ized section and content) DATE CREATED AUTHOR 05/01/2018 [facility] DATE CREATED AUTHOR AUTHOR'S ORGANIZ ATION 05/04/2018 [facility] DATE CREATED AUTHOR AUTHOR'S ORGANIZ ATION 05/07/2018 [facility] DATE CREATED AUTHOR AUTHOR'S ORGANIZ ATION 05/09/2018 [facility] DATE CREATED AUTHOR AUTHOR'S ORGANIZ ATION 10/23/2018 [facility] DATE CREATED AUTHOR AUTHOR'S ORGANIZ ATION 11/28/2022 [facility] DATE CREATED AUTHOR AUTHOR'S ORGANIZ ATION 07/24/2024 [facility] DATE CREATED AUTHOR AUTHOR'S ORGANIZ ATION 11/24/2024 [facility] DATE CREATED AUTHOR AUTHOR'S ORGANIZ ATION 06/10/2025 [facility] DATE CREATED AUTHOR AUTHOR'S ORGANIZ ATION 09/02/2025 [facility] Care Teams (unrecognized sec tion and content) Team Status: Active Member Role Status Dates Sulaiman Feldman DO Primary Care Provider Active Team Status: Active Member Role Status Dates Sulaiman Feldman DO Primary Care Provider Active Start: June 07, 2025 Aydee Gardner ProviderActiveStart: June 07, 2025 Miriam Gardner ProviderActiveStart: June 07, 2025 Donna Hughes ProviderActiveStart: June 07, 2025 Sivan Francois , DOOther ProviderActiveStart: June 07, 2025 Miriam Cervantes ProviderActiveStart: June 07, 2025 Thanh Kenney , DOOther ProviderActiveStart: June 07, 2025 Neville Bush , DOOther ProviderActiveStart: June 07, 2025 Bella Cano , APRNOther ProviderActiveStart: June 07, 2025 Alejandra Montenegro , YXUC-KOH-LQoftp ProviderActiveStart: June 07, 2025 Ratna Denton , PLATE CLEANER ACNP-BCOther ProviderActiveStart: June 07, 2025 Thanh Paris MDOther ProviderActiveStart: June 07, 2025 Víctor Agrawal MDOther ProviderActiveStart: June 07, 2025 Neville Rojas MDOther ProviderActiveStart: June 07, 2025 Kota Carreno , DOAttending ProviderActiveStart: June 07, 2025 Kota Carreno , Other ProviderActiveStart: June 07, 2025 Michael Willoughby DOOther ProviderActiveStart: June 07, 2025 Lizett Murray MDOther ProviderActiveStart: June 07, 2025 Twin Ruiz MDOther ProviderActiveStart: June 07, 2025 Brandy Wilburn MDOther ProviderActiveStart: June 07, 2025 Sherrie Perez MDOther ProviderActiveStart: June 07, 2025 Team Status: Inactive Member Role Status Dates Sulaiman Feldman DO Primary Care Provider Active Start: November 18, 2024 End: November 21, 2024Paalyssa Sepulveda , DOEmergency ProviderActiveStart: November 18, 2024 End: November 21, 2024Chaz Frey MDAdmit ProviderActiveStart: November 18, 2024 End: November 21, 2024Yamila Donald MDAttending ProviderActiveStart: November 18, 2024 End: November 21, 2024Donna MorrisarappaOther ProviderActiveStart: November 18, 2024 End: November 21, 2024Kashmir Conner PhDOther ProviderActiveStart: November 18, 2024 End: November 21, 2024Sivan Francois DOOther ProviderActiveStart: November 18, 2024 End: November 21, 2024Strichard Hubbard MDOther ProviderActiveStart: November 18, 2024 End: November 21camden Kenney DOOther ProviderActiveStart: November 18, 2024 End: November 21joaquina Bush DOOther ProviderActiveStart: November 18, 2024 End: November 21silvia Cano , APRNOther ProviderActiveStart: November 18, 2024 End: November 21shanice Amaro , BEAD FILLER-COther ProviderActiveStart: November 18, 2024 End: November 21, 2024Alejandra Montenegro , JWZX-BUT-NEtngz ProviderActiveStart: November 18, 2024 End: November 21, 2024 Team Status: Active Member Role Status Dates Sulaiman Feldman DO Primary Care Provider Active Start: November 18, 2024 Jamin Sepulveda DOEmerevie ProviderActiveStart: November 18, 2024 Aydee Quevedo ProviderActiveStart: November 18, 2024 Miriam Trinidad ProviderActiveStart: November 18, 2024 Jaylin Fajardo RNOther ProviderActiveStart: November 18, 2024 Wojciech Horowitz MDOther ProviderActiveStart: November 18, 2024 Julito Mosley , MDAttending Provider, Other ProviderActiveStart: November 18, 2024 Emy Rae MDOther ProviderActiveStart: November 18, 2024 Donna Hughes ProviderActiveStart: November 18, 2024 Kashmir Conner PhDOther ProviderActiveStart: November 18, 2024 Sivan Francois DOOther ProviderActiveStart: November 18, 2024 Reno Hubbard MDOther ProviderActiveStart: November 18, 2024 Thanh Kenney DOOther ProviderActiveStart: November 18, 2024 Neville Bush DOOther ProviderActiveStart: November 18, 2024 Bella Cano , APRNOther ProviderActiveStart: November 18, 2024 Janie Amaro , BEAD FILLER-COther ProviderActiveStart: November 18, 2024 Alejandra Montenegro , QIXF-ERF-BXledn ProviderActiveStart: November 18, 2024 Team Status: Active Member Role Status Dates Sulaiman Feldman DO Primary Care Provider Active Start: November 17, 2024 Jamin Sepulveda DOEmehoward ProviderActiveStart: November 17, 2024 Aydee Quevedo ProviderActiveStart: November 17, 2024 Marwan Wassouf , MDAttending ProviderActiveStart: November 17, 2024 Jaylin Fajardo RNOther ProviderActiveStart: November 17, 2024 Wojciech Horowitz MDOther ProviderActiveStart: November 17, 2024 Julito Mosley MDOther ProviderActiveStart: November 17, 2024 Emy Rae MDOther ProviderActiveStart: November 17, 2024 Donna Hughes ProviderActiveStart: November 17, 2024 Kashmir Conner , Other ProviderActiveStart: November 17, 2024 Sivan Francois , DOOther ProviderActiveStart: November 17, 2024 Reno Hubbard MDOther ProviderActiveStart: November 17, 2024 Thanh Kenney , DOOther ProviderActiveStart: November 17, 2024 Neville Bush , DOOther ProviderActiveStart: November 17, 2024 Bella Cano , APRNOther ProviderActiveStart: November 17, 2024 Janie Amaro , BEAD FILLER-COther ProviderActiveStart: November 17, 2024 Alejandra Montenegro , WIAF-SUS-JSwcvc ProviderActiveStart: November 17, 2024 Team Status: Inactive Member Role Status Dates Sulaiman Feldman , DO Primary Care Provider Active Start: May 01, 2024 End: May 06jaren Douglass MDAdmit ProviderActiveStart: May 01, 2024 End: May 06ndneeraj Maldonado , MDAttending ProviderActiveStart: May 01, 2024 End: May 06, 2024Karley Nguyen MDOther ProviderActiveStart: May 01, 2024 End: May 06, 2024Patricio Galaviz MDOther ProviderActiveStart: May 01, 2024 End: May 06, 2024Sofia Kent , APRNOther ProviderActiveStart: May 01, 2024 End: May 06jhon Pichardo Jr DOOther ProviderActiveStart: May 01, 2024 End: May 06janny Mills MDOther ProviderActiveStart: May 01, 2024 End: May 06, 2024Mogurjit Agrawal MDOther ProviderActiveStart: May 01, 2024 End: May 06, 2024 Team Status: Active Member Role Status Dates Sulaiman Feldman DO Primary Care Provider Active Start: May 02, 2024 Magdy Douglass MDAdmdevan ProviderActiveStart: May 02, 2024 Janae Jose MDOther ProviderActiveStart: May 02, 2024 Víctor Agrawal , MDAttending Provider, Other ProviderActiveStart: May 02, 2024 Team Status: Active Member Role Status Dates Sulaiman Feldman DO Primary Care Provider Active Start: May 06, 2024 Magdy Douglass MDAdmit ProviderActiveStart: May 06, 2024 Kiko Maldonado MDOther ProviderActiveStart: May 06, 2024 Karley Nguyen MDOther ProviderActiveStart: May 06, 2024 Patricio Galaviz , MDAttending Provider, Other ProviderActiveStart: May 06, 2024 Sofia Kent APRNOther ProviderActiveStart: May 06, 2024 Stevie Pichardo Jr DOOther ProviderActiveStart: May 06, 2024 Danny Mills MDOther ProviderActiveStart: May 06, 2024 Víctor Agrawal MDOther ProviderActiveStart: May 06, 2024 Team Status: Inactive Member Role Status Dates Salty Luis DO Attending Provider Active S tart: July 31, 2025 End: July 31, 2025 Team Status: Active Member Role Status Dates Sulaiman Feldman DO Primary Care Provider Active Start: July 31, 2025 Alfonso Antunez DOAdmit ProviderActiveStart: July 31, 2025 Shannon Bernal MDOther ProviderActiveStart: July 31, 2025 Donna Hughes ProviderActiveStart: July 31, 2025 Sivan Francois DOOther ProviderActiveStart: July 31, 2025 Reno Hubbard MDOther ProviderActiveStart: July 31, 2025 Thanh Kenney DOOther ProviderActiveStart: July 31, 2025 Neville Bush DOAttending ProviderActiveStart: July 31, 2025 Neville Bush , DOOther ProviderActiveStart: July 31, 2025 Bella Cano , APRNOther ProviderActiveStart: July 31, 2025 Alejandra Montenegro , FTLI-NLY-REthnc ProviderActiveStart: July 31, 2025 Ratna Denton , PLATE CLEANER ACNP-BCOther ProviderActiveStart: July 31, 2025 Thanh Paris MDOther ProviderActiveStart: July 31, 2025 Víctor Agrawal MDOther ProviderActiveStart: July 31, 2025 Neville Rojas MDOther ProviderActiveStart: July 31, 2025 Kota Carreno , DOOther ProviderActiveStart: July 31, 2025 Lizett Murray MDOther ProviderActiveStart: July 31, 2025 Brandy Wilburn MDOther ProviderActiveStart: July 31, 2025 Sherrie Perez MDOther ProviderActiveStart: July 31, 2025 Jaylin Fajardo RNOther ProviderActiveStart: July 31, 2025 Fely Dallas , DOOther ProviderActiveStart: July 31, 2025 Yasmine Jimenez MDOther ProviderActiveStart: July 31, 2025 Katherin Bell MDOther ProviderActiveStart: July 31, 2025 Carolyne Storey , APRNOther ProviderActiveStart: July 31, 2025 Laurel Hayes MDOther ProviderActiveStart: July 31, 2025 Lissett Burdick , PROCEDURAL NURSE-BCOther ProviderActiveStart: July 31, 2025 Team Status: Active Member Role Status Dates Sulaiman Feldman , DO Primary Care Provider Active Start: August 07, 2025 Alfonso Antunez , DOAdmit ProviderActiveStart: August 07, 2025 Donna Hughes ProviderActiveStart: August 07, 2025 Sivan Francois DOOther ProviderActiveStart: August 07, 2025 Reno Hubbard MDOther ProviderActiveStart: August 07, 2025 Thanh Kenney , DOOther ProviderActiveStart: August 07, 2025 Neville Bush DOOther ProviderActiveStart: August 07, 2025 Bella Cano , APRNOther ProviderActiveStart: August 07, 2025 Alejandra Montenegro , YLZP-KSK-ESfdaa ProviderActiveStart: August 07, 2025 Ratna Denton , PLATE CLEANER ACNP-BCOther ProviderActiveStart: August 07, 2025 Thanh Paris MDAttending ProviderActiveStart: August 07, 2025 Thanh Paris MDOther ProviderActiveStart: August 07, 2025 Víctor Agrawal MDOther ProviderActiveStart: August 07, 2025 Neville Rojas MDOther ProviderActiveStart: August 07, 2025 Kota Carreno , DOOther ProviderActiveStart: August 07, 2025 Lizett Murray MDOther ProviderActiveStart: August 07, 2025 Brandy Wilburn MDOther ProviderActiveStart: August 07, 2025 Sherrie Perez MDOther ProviderActiveStart: August 07, 2025 Jaylin Faajrdo RNOther ProviderActiveStart: August 07, 2025 Fely Dallas , DOOther ProviderActiveStart: August 07, 2025 Yasmine Jimenez MDOther ProviderActiveStart: August 07, 2025 Katherin Bell MDOther ProviderActiveStart: August 07, 2025 Carolyne Storey , APRNOther ProviderActiveStart: August 07, 2025 Laurel Hayes MDOther ProviderActiveStart: August 07, 2025 Lissett Burdick , PROCEDURAL NURSE-BCOther ProviderActiveStart: August 07, 2025 Kiko Maldonado MDOther ProviderActiveStart: August 07, 2025 Team Status: Active Member Role Status Dates Sulaiman Feldman DO Primary Care Provider Active Start: August 14, 2025 Alfonso Antunez , DOAdmit ProviderActiveStart: August 14, 2025 Deb Bartholomew MDOther ProviderActiveStart: August 14, 2025 Donna Hughes ProviderActiveStart: August 14, 2025 Sivan Francois DOOther ProviderActiveStart: August 14, 2025 Reno Hubbard MDOther ProviderActiveStart: August 14, 2025 Thanh Kenney DOOther ProviderActiveStart: August 14, 2025 Neville Bush DOOther ProviderActiveStart: August 14, 2025 Bella Cano , APRNOther ProviderActiveStart: August 14, 2025 Alejandra Montenegro , AWJL-FKJ-WVofem ProviderActiveStart: August 14, 2025 Miko Montalvo MDOther ProviderActiveStart: August 14, 2025 Thanh Paris MDOther ProviderActiveStart: August 14, 2025 Otto Mariee , DOAttending ProviderActiveStart: August 14, 2025 Otto Mariee , DOOther ProviderActiveStart: August 14, 2025 Donna Larson , APRNOther ProviderActiveStart: August 14, 2025 Patricio Alvarez , DOOther ProviderActiveStart: August 14, 2025 Miri Greenberg , DOOther ProviderActiveStart: August 14, 2025 Patricio Alvarez , DO FELLOWOther ProviderActiveStart: August 14, 2025 Neville Lujan , DO FELLOWOther ProviderActiveStart: August 14, 2025 Goals (unrecognized section and content) Goals may be documented in a n alternate sectionGoals may be documented in an alternate sectionGoals may be documented in an alternate sectionGoals may be documented in an [...] ON THE PRIMARY CLINICAL RECORDS. [facility] [employer] provides no warranty or guarantee of the accuracy or completeness of information in this document.
[2025-09-09 17:18] LABS: Alanine Aminotransferase 21 U/L (16-63); Albumin Globulin Ratio 1.1; Albumin Level 3.9 g/dL (3.4-5.0); Alkaline Phosphatase 113 U/L (46-116); Anion Gap 9.8; Aspartate Amino Transferase 41 U/L (15-37); Blood Urea Nitrogen 17.0 mg/dL (7.0-18.0); Calcium 9.4 mg/dL (8.5-10.1); Carbon Dioxide 33.3 mmol/L (21.0-32.0); Chloride 97 mmol/L (98-107); Estimated GFR (African America >60 (>=60 mL/min/1.73m^2); Estimated GFR (Non-African Ame >60 (>=60 mL/min/1.73m^2); Globulin 3.7 g/dL; Glucose 105 mg/dL (74-106); Potassium 4.1 mmol/L (3.5-5.1); Sodium 136 mmol/L (136-145); Total Protein 7.6 g/dL (6.4-8.2)
--- NOTE | 2025-09-09 17:50 | ED.GENADUL1 ---
HPI HPI - General Adult General Chief complaint: Seizure Stated complaint: SEIZURE Time Seen by Provider: 09/09/25 16:36 Source: EMR Mode of arrival: ambulance Limitations: altered mental status History of Present Illness HPI narrative: The patient is a 65-year-old male who is presenting to us brought to us by the EMS for concern of a seizure, patient is very well-known to the ER he is known to have history of drug use mostly methamphetamine and polysubstance abuse the patient presented to us after he already had a seizure The patient brought to us by the EMS after the roommate called and said that the patient possibly had a seizure although when they arrived there the patient was just agitated Patient was provided with Versed to be brought to the ER, in the ER the patient is not showing any distress she is laying down and he does have some incontinence of urine that is apparent and some old healing wound in his face The patient is laying facedown does not want to talk to us and not cooperative regarding sitting up, when I spoke with him he did not complain of any distress and he was agreeable that he will help us get some blood workup from him and long as we leave him sleep Related Data Previous Rx's ?Medication ?Instructions ?Recorded levetiracetam 1,000 mg tablet 1,000 mg PO BID 1 month #60 tabs 07/16/25 (Kemablera) Allergies Allergy/AdvReac Type Severity Reaction Status Date / Time No Known Drug Allergies Allergy Verified 09/09/25 16:37 Opioid HPI Opioid Management Most Recent Opioid Data: Last Pain Scale 4 04/01/24, 12:20 Last ORT Total Score 12 07/15/25, 17:23 Last ORT Risk Category High Risk 07/15/25, 17:23 Ur Phencyclidine Scrn, (NEGATIVE) Negative 07/31/25, 13:55 Review of Systems ROS Status of ROS 10 or more systems reviewed and unremarkable except as noted in history and below [facility] Medical History (Updated 09/09/25 @ 17:55 by Essence Rodriguez MD) Breakthrough seizure ?G40.919 - Epilepsy, unspecified, intractable, without status epilepticus (ICD-10) 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 No rash. Head: Normocephalic, scars of previous falls Neck: Supple, non-tender. Cardiovascular: Regular Rate and Rhythm without murmur, gallop or rub. Respiratory: No accessory muscle use or respiratory distress. Lungs are clear to auscultation, no wheezing, rales or rhonchi Chest Wall: no tenderness Back: No midline thoracic or lumbar vertebral tenderness. No CVA tenderness Musculoskeletal: normal ROM, no calf or popliteal tenderness, no lower extremity edema/swelling GI: Abdomen is soft, non-distended. Normal bowel sounds. No masses appreciated. No tenderness to palpation. No rebound, guarding, or rigidity noted. Neurological: A&O x alert oriented x 1 and does not want to speak with us although he is agreeable to let us draw blood from him as long as we are going to leave him sleep Psychiatric: Angry and not cooperative. Constitutional Vital Signs, click to edit/add: Last Vital Signs Pulse 70 09/09/25 16:39 Resp 16 09/09/25 16:39 Pulse Ox 96 09/09/25 17:20 O2 Del Method Nasal Cannula 09/09/25 17:02 O2 Flow Rate 2 09/09/25 17:02 Course Vital Signs Vital signs: Vital Signs Pulse Oximetry 93 L 09/09/25 16:35 Pulse Rate 70 09/09/25 16:39 Respiratory Rate 16 09/09/25 16:39 Pulse Oximetry 96 09/09/25 17:20 Oxygen Delivery Method Nasal Cannula 09/09/25 17:02 Oxygen Delivery Flow Rate 2 09/09/25 17:02 Medical Decision Making MDM Narrative Medical decision making narrative: I did obtain the blood workup from the patient and that showed no acute pathology he actually have normal kidney function at this time compared to the last time he was here for acute kidney injury The patient mostly under the effects of meth amphetamine and he will be monitored until he is more awake It was noted that initially he was saturating in the upper 80s after he was already receiving Versed was placed on 3 L nasal cannula The patient will be monitored At 6:30 PM the patient started having chewing like movement in his mouth after which he had bit his tongue and he did had a tonic seizure with his eye fixed to the left side and he was not responding for few seconds during which we gave him Valium The patient right now is postictal Lab Data Labs: Lab Results 09/09/25 Range/Units 16:44 WBC 9.7 (4.0-11.0) 10^3/uL RBC 4.45 L (4.70-6.10) 10^6/uL Hgb 13.6 L (14.0-18.0) g/dL Hct 41.7 L (42.0-54.0) % MCV 93.7 (80.0-94.0) fL MCH 30.6 (25.9-34.0) pg MCHC 32.6 (29.9-35.2) g/dL RDW 14.8 (11.0-15.0) % Plt Count 269 (150-450) 10^3/uL MPV 8.5 L (9.5-13.5) fL Neut % (Auto) 88.5 H (43.0-75.0) % Lymph % (Auto) 7.6 L (20.5-60.0) % [place] % (Auto) 3.2 (1.7-12.0) % Eos % (Auto) 0.2 L (0.9-7.0) % Baso % (Auto) 0.3 (0.2-2.0) % Neut # (Auto) 8.6 H (1.4-6.5) 10^3/uL Lymph # (Auto) 0.7 L (1.2-3.8) 10^3/uL [place] # (Auto) 0.3 (0.3-0.8) 10^3/uL Eos # (Auto) 0.0 (0.0-0.7) 10^3/uL Baso # (Auto) 0.0 (0.0-0.1) 10^3/uL Abs Immat Gran (auto) 0.02 (0.00-0.03) 10^3/uL Imm/Tot Granulo (auto) 0.2 (0.0-0.5) % Sodium 136 (136-145) mmol/L Potassium 4.1 (3.5-5.1) mmol/L Chloride 97 L (98-107) mmol/L Carbon Dioxide 33.3 H (21.0-32.0) mmol/L Anion Gap 9.8 BUN 17.0 (7.0-18.0) mg/dL Creatinine 1.13 (0.70-1.30) mg/dL Est GFR ( Amer) >60 (>=60 mL/min/1.73m^2) Est GFR (Non-Af Amer) >60 (>=60 mL/min/1.73m^2) BUN/Creatinine Ratio 15.0 Glucose 105 (74-106) mg/dL Calcium 9.4 (8.5-10.1) mg/dL Total Bilirubin 0.6 (0.2-1.0) mg/dL AST 41 H (15-37) U/L ALT 21 (16-63) U/L Alkaline Phosphatase 113 (46-116) U/L Total Protein 7.6 (6.4-8.2) g/dL Albumin 3.9 (3.4-5.0) g/dL Globulin 3.7 g/dL Albumin/Globulin Ratio 1.1 Ethanol Quant <3 mg/dL Discharge Plan Discharge Patient Disposition: Still a Patient
[2025-09-09] MEDS: DIAZEPAM 10 MG/2 ML SYRINGE 5 MG IV ×2 (18:20→21:10)
--- NOTE | 2025-09-09 18:23 | CT_ITS ---
The [address] [address] Patient Name: AARON OLIVAREZ MRN: [id number] date: 1960 Sex: M Assigned Patient Location: ER Current Patient Location: .[facility] Accession/Order Number: [id number] Exam Date: 09/09/2025 18:33 Report Date: 09/09/2025 18:54 At the request of: MALORIE CASTAÑEDA MD Procedure: CT head/brain wo con CT BRAIN WITHOUT CONTRAST: CLINICAL HISTORY: SEIZURE COMPARISON: 07/31/2025 TECHNIQUE: Contiguous axial unenhanced images were obtained through the brain. This CT exam was performed using one or more following dose reduction techniques: Automated exposure control, adjustment of the mA and/or kV according to patient size, or use of iterative reconstruction technique. FINDINGS: There is no evidence of midline shift, intra or extra-axial fluid collection, hemorrhage or CT evidence of acute large vascular distribution stroke. Moderate to severe microvascular changes again noted. There are vascular calculations. Visualized intraorbital contents appear unremarkable. Sjct-ck-helotoco paranasal sinus mucosal thickening. Mastoids are clear. The surrounding soft tissues are normal. CT/CT head/brain wo con IMPRESSION: NO ACUTE INTRACRANIAL ABNORMALITY. MODERATE TO SEVERE CHRONIC SMALL VESSEL ISCHEMIC DISEASE. Impression dictated by: Regino Mckinley M.D. 09/09/2025 6:54 PM Dictation Location: [place] [address] Electronically authenticated by: [id number] Y Date: 09/09/2025 18:54
--- NOTE | 2025-09-09 19:10 | ECG_ITS ---
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
--- NOTE | 2025-09-09 19:54 | PC.NURSE ---
Unable to call at this time. Nurse will call us to let us know when pt can come up.
[2025-09-09] MEDS: 0.9 % SODIUM CHLORIDE 1,000 ML 150 ML IV (20:00)
--- OUTSIDE RECORDS SUMMARY | 2025-09-09 21:08 | XMS_ITS | CCD ---
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 PERFORMED BY:[address] [place], [place] [phone] MEDICAL DIRECTORCELESTE GERMAN M.D.Performed By: #### BMP, CBC ####[place] [address] USABasophils/100 WBC (Bld)0.8 %Normal.The [facility] Physician GroupComment on above:Performed By: #### BMP, CBC ####[place] [address] USAEosinophils (Bld) [#/Vol]0.1 10*3/uLNormal 0.0-0.45The [facility] Physician GroupComment on above:Performed By: #### BMP, CBC ####[place] [address] [place] Eosinophils/100 WBC (Bld)1.0 %Normal.The [facility] Physician GroupComment on above:Performed By: #### BMP, CBC ####[place] [address] USAErythrocyte distribution width (RBC) [Ratio]13.7 % Xnomfl89.0-14.8The [facility] Physician GroupComment on above:Performed By: #### BMP, CBC ####[place] [address] USAHematocrit (Bld) [Volume fraction]34.1 %Low38.8-50.0The [facility] Physician GroupComment on above:Performed By: #### BMP, CBC ####[place] [address] USAHemoglobin (Bld) [Mass/Vol]11.6 g/dL Low13.0-17.0The [facility] Physician GroupComment on above:Performed By: #### BMP, CBC ####[place] [address] USALymphocytes (Bld) [#/Vol]1.1 10*3/uLNormal1.00-4.8The [facility] Physician GroupComment on above:Performed By: #### BMP, CBC ####[place] [address] USALymphocytes/100 WBC (Bld)18.8 %Normal .The [facility] Physician GroupComment on above:Performed By: #### BMP, CBC ####[place] [id number] USAMCH (RBC) [Entitic mass]30.5 izSzsamd76.5-35.2The [facility] Physician GroupComment on above:Performed By: #### BMP, CBC ####[place] [id number] USAMCV (RBC) [Entitic vol]89.4 sQMhbrty55.5-101 The [facility] Physician GroupComment on above:Performed By: #### BMP, CBC ####[address] [address] USAMean Corpuscular HGB Conc34.2 g/cUAgtths38.5-35.6The [facility] Physician GroupComment on above:Performed By: #### BMP, CBC ####[address] [address] USAMonocytes (Bld) [#/Vol]0.4 10*3/uLNormal 0.0-0.8The [facility] Physician GroupComment on above:Performed By: #### BMP, CBC ####[place] [id number] [place] Monocytes/100 WBC (Bld)7.4 %Normal.The [facility] Physician GroupComment on above:Performed By: #### BMP, CBC ####[place] [address] USANeutrophils (Bld) [#/Vol]4.3 10*3/uLNormal1.8-7.7The [facility] Physician GroupComment on above:Performed By: #### BMP, CBC ####[place] [id number] [place] Neutrophils/100 WBC (Bld)72.0 %Normal.The [facility] Physician GroupComment on above:Performed By: #### BMP, CBC ####[place] [id number] USANRBC%0.1 /100{WBC}Normal0-0.5The [facility] Physician GroupComment on above:Performed By: #### BMP, CBC ####[address] [address] USAPlatelet mean volume (Bld) [Entitic vol]8.0 fLNormal6.6-10.1The [facility] Physician GroupComment on above: Performed By: #### BMP, CBC ####[address] [address] USAPlatelets (Bld) [#/Vol]316 10*3/yYLdvikd328-491Qfy [facility] Physician GroupComment on above:Performed By: #### BMP, CBC ####[place] [id number] USARBC (Bld) [#/Vol]3.81 10*6/uLLow3.90-5.60The [facility] Physician GroupComment on above:Performed By: #### BMP, CBC ####[place] [id number] USAWBC (Bld) [#/Vol]5.9 10*3/uLNormal4.1-10.5The [facility] Physician GroupComment on above:Performed By: #### BMP, CBC ####[place] [id number] USAWhite Blood Count5.9 [CFU]/mLNormal4.1-10.5The [facility] Physician GroupComment on above:Performed By: #### BMP, CBC ####[place] [address] USABasic Metabolic Panelon 26-04-2375Tdpwv gap [Moles/Vol]9.1 mmol/LNormal6.0-15.0The [facility] Physician GroupComment on above:Performed By: #### CBC, BMP ####[place] [address] USACalcium [Mass/Vol]8.5 mg/dLLow8.6-10.3The [facility] Physician GroupComment on above:Performed By: #### CBC, BMP ####[place] [address] USAChloride [Moles/Vol] 103 mmol/MWootlx05-679Wbf [facility] Physician GroupComment on above:Performed By: #### CBC, BMP ####[place] [address] USACO2 [Moles/Vol]27.2 mmol/AWihzbb69.0-31.0The [facility] Physician GroupComment on above:Performed By: #### CBC, BMP ####[place] [address] USACreatinine [Mass/Vol]0.92 mg/dLNormal 0.70-1.30The [facility] Physician GroupComment on above:Performed By: #### CBC, BMP ####[address] [address] [place] Creatinine Clr Calc Avnycocp80.65NormalThe [facility] Physician GroupComment on above:Result Comment: PERFORMED BY:[address] [place], [place] [phone] MEDICAL ELÍAS GERMAN M.D.Performed By: #### CBC, BMP ####[address] [address] USAGFR/1.73 sq M.predicted MDRD (S/P/Bld) [Vol rate/Area]mL/min/{1.73_m2}NormalThe [facility] Physician GroupComment on above: Performed By: #### CBC, BMP ####[place] [id number] USAGlucose [Mass/Vol]80 mg/gOYpdxsh68-535Xki [facility] Physician [facility] HospitalComment on above:Result Comment: Random Glucose Reference Range is dependent on time and content of last meal. Glucose of more than 200 mg/dL in a nonstressed, ambulatory subject supports the diagnosis of Diabetes Mellitus. ADA recommended reference rangePerformed By: #### CBC, BMP ####[address] [address] USAPotassium [Moles/Vol] 3.3 mmol/LLow3.5-5.1The [facility] Physician [facility] HospitalComment on above:Performed By: #### CBC, BMP ####[address] [address] USASodium [Moles/Vol]136 mmol/BVgxvql819-128Wjq [facility] Comment on above:Performed By: #### CBC, BMP ####[address] [address] USAUrea nitrogen [Mass/Vol]17 mg/dLNormal 7-25The [facility] Physician GroupComment on above:Performed By: #### CBC, BMP ####[address] [address] [facility] Complete Blood Count Auto Diffon [id number] (Bld) [#/Vol]0.1 10*3/uL Normal0.0-0.2The [facility] Physician GroupComment on above:Result Comment: PERFORMED BY:[address] [place], [place] [phone] MEDICAL DIRECTORCELESTE GERMAN M.D.Performed By: #### CBC, BMP ####[address] [address] USABasophils/100 WBC (Bld)0.8 %Normal.The [facility] Physician GroupComment on above:Performed By: #### CBC, BMP ####[address] [address] USAEosinophils (Bld) [#/Vol]0.0 10*3/uLNormal 0.0-0.45The [facility] Physician GroupComment on above:Performed By: #### CBC, BMP ####[address] [address] [place] Eosinophils/100 WBC (Bld)0.4 %Normal.The [facility] Physician GroupComment on above:Performed By: #### CBC, BMP ####[address] [address] USAErythrocyte distribution width (RBC) [Ratio]13.7 % Hxapnw69.0-14.8The [facility] Physician GroupComment on above:Performed By: #### CBC, BMP ####[address] [address] USAHematocrit (Bld) [Volume fraction]37.4 %Low38.8-50.0The [facility] Physician GroupComment on above:Performed By: #### CBC, BMP ####[address] [address] USAHemoglobin (Bld) [Mass/Vol]12.6 g/dL Low13.0-17.0The [facility] Physician GroupComment on above:Performed By: #### CBC, BMP ####[place] [address] USALymphocytes (Bld) [#/Vol]1.0 10*3/uLNormal1.00-4.8The [facility] Physician GroupComment on above:Performed By: #### CBC, BMP ####[place] [address] USALymphocytes/100 WBC (Bld)11.3 %Normal .The [facility] Physician GroupComment on above:Performed By: #### CBC, BMP ####[address] (RBC) [Entitic mass]30.2 biJqfixp71.5-35.2The [facility] Physician GroupComment on above:Performed By: #### CBC, BMP ####[address] (RBC) [Entitic vol]89.8 kXGyzdac49.5-101 The [facility] Physician GroupComment on above:Performed By: #### CBC, BMP ####[place] [address] USAMean Corpuscular HGB Conc33.6 g/fFJuiqia30.5-35.6The [facility] Physician GroupComment on above:Performed By: #### CBC, BMP ####[place] [address] USAMonocytes (Bld) [#/Vol]0.7 10*3/uLNormal 0.0-0.8The [facility] Physician GroupComment on above:Performed By: #### CBC, BMP ####[place] [address] [place] Monocytes/100 WBC (Bld)7.8 %Normal.The [facility] Physician GroupComment on above:Performed By: #### CBC, BMP ####[place] [address] USANeutrophils (Bld) [#/Vol]6.9 10*3/uLNormal1.8-7.7The [facility] Physician GroupComment on above:Performed By: #### CBC, BMP ####[place] [address] [place] Neutrophils/100 WBC (Bld)79.7 %Normal.The [facility] Physician GroupComment on above:Performed By: #### CBC, BMP ####[place] [address] USANRBC%0.0 /100{WBC}Normal0-0.5The [facility] Physician GroupComment on above:Performed By: #### CBC, BMP ####[place] [address] USAPlatelet mean volume (Bld) [Entitic vol]8.1 fLNormal6.6-10.1The [facility] Physician GroupComment on above: Performed By: #### CBC, BMP ####[place] [address] USAPlatelets (Bld) [#/Vol]340 10*3/cPAkgmox351-003Zuh [facility] Physician GroupComment on above:Performed By: #### CBC, BMP ####[place] [address] USARBC (Bld) [#/Vol]4.16 10*6/uLNormal3.90-5.60The [facility] Physician GroupComment on above:Performed By: #### CBC, BMP ####[place] [address] USAWBC (Bld) [#/Vol]8.7 10*3/uLNormal4.1-10.5The [facility] Physician GroupComment on above:Performed By: #### CBC, BMP ####[place] [address] USAWhite Blood Count8.7 [CFU]/mLNormal4.1-10.5The [facility] Physician GroupComment on above:Performed By: #### CBC, BMP ####[address] [address] USABasic Metabolic Panelon 03-20-6405Mzqtb gap [Moles/Vol]9.5 mmol/LNormal6.0-15.0The [facility] Physician GroupComment on above:Performed By: #### BMP ####[address] [address] USACalcium [Mass/Vol]8.1 mg/dLLow8.6-10.3The [facility] Physician GroupComment on above:Performed By: #### BMP ####[address] [address] USAChloride [Moles/Vol]105 mmol/L Usaxmi34-434Uik [facility] Physician GroupComment on above:Performed By: #### BMP ####[address] [address] USACO2 [Moles/Vol]22.6 mmol/CUinsrf74.0-31.0The [facility] Physician GroupComment on above:Performed By: #### BMP ####[address] [address] USACreatinine [Mass/Vol]0.88 mg/dLNormal0.70-1.30The [facility] Physician GroupComment on above:Performed By: #### BMP ####[address] [address] USACreatinine Clr Calc Hbtctquz83.41NormalThe [facility] Physician GroupComment on above:Result Comment: PERFORMED BY:[address] [place], [place] [phone] MEDICAL ELÍAS GERMAN M.D.Performed By: #### BMP ####[address] [address] USAGFR/1.73 sq M.predicted MDRD (S/P/Bld) [Vol rate/Area]mL/min/{1.73_m2}Normal The [facility] Physician GroupComment on above:Performed By: #### BMP ####[address] [place] [address] USAGlucose [Mass/Vol]83 mg/iZOhdilp92-510Lrz [facility] Physician GroupComment on above: Result Comment: Random Glucose Reference Range is dependent on time and content of last meal. Glucose of more than 200 mg/dL in a nonstressed, ambulatory subject supports the diagnosis of Diabetes Mellitus. ADA recommended reference rangePerformed By: #### BMP ####[place] [address] USAPotassium [Moles/Vol]4.1 mmol/LNormal3.5-5.1The [facility] Physician GroupComment on above:Result Comment: Hemolysis is present at a level that could interfere with the result. Contact lab if redraw is requiredPerformed By: #### BMP ####[place] [address] USASodium [Moles/Vol]133 mmol/QIpx887-742Vdt [facility] Physician GroupComment on above:Performed By: #### BMP ####[place] [id number] USAUrea nitrogen [Mass/Vol]25 mg/dLNormal7-25The [facility] Physician GroupComment on above:Performed By: #### BMP ####[place] [id number] [facility] Complete Blood Count Auto Diffon [id number] (Bld) [#/Vol]0.0 10*3/uL Normal0.0-0.2The [facility] Physician GroupComment on above:Result Comment: PERFORMED BY:[address] [place], [place] [phone] MEDICAL DIRECTORCELESTE GERMAN M.D.Performed By: #### CBC ####[place] [id number] USABasophils/100 WBC (Bld)0.7 %Normal.The [facility] Physician GroupComment on above:Performed By: #### CBC ####[place] [id number] USAEosinophils (Bld) [#/Vol]0.0 10*3/uLNormal0.0-0.45 The [facility] Physician GroupComment on above:Performed By: #### CBC ####[address] Eosinophils/100 WBC (Bld)0.6 %Normal.The [facility] Physician GroupComment on above:Performed By: #### CBC ####[address] StreetErythrocyte distribution width (RBC) [Ratio]14.2 % Swbbny82.0-14.8The [facility] Physician GroupComment on above:Performed By: #### CBC ####[address] Hematocrit (Bld) [Volume fraction]36.4 %Low38.8-50.0The [facility] Physician GroupComment on above:Performed By: #### CBC ####[place] [address] USAHemoglobin (Bld) [Mass/Vol]12.1 g/dL Low13.0-17.0The [facility] Physician GroupComment on above:Performed By: #### CBC ####[address] Lymphocytes (Bld) [#/Vol]0.8 10*3/uLLow1.00-4.8The [facility] Comment on above:Performed By: #### CBC ####[place] [address] USALymphocytes/100 WBC (Bld)11.7 %Normal.The [facility] Physician GroupComment on above:Performed By: #### CBC ####[place] [address] USAMCH (RBC) [Entitic mass]30.3 gzZztedg70.5-35.2The [facility] Physician GroupComment on above: Performed By: #### CBC ####[place] [address] USAMCV (RBC) [Entitic vol]91.2 oKOzikrc47.5-101The [facility] Physician GroupComment on above:Performed By: #### CBC ####[place] [address] USAMean Corpuscular HGB Conc33.2 g/mLZypmgu77.5-35.6The [facility] Physician GroupComment on above: Performed By: #### CBC ####[place] [address] USAMonocytes (Bld) [#/Vol]0.5 10*3/uLNormal0.0-0.8The [facility] Physician GroupComment on above:Performed By: #### CBC ####[place] [address] USAMonocytes/100 WBC (Bld)7.0 %Normal.The [facility] Physician GroupComment on above:Performed By: #### CBC ####[place] [address] USANeutrophils (Bld) [#/Vol]5.2 10*3/uLNormal1.8-7.7The [facility] Physician GroupComment on above:Performed By: #### CBC ####[place] [address] USANeutrophils/100 WBC (Bld)80.0 %Normal. The [facility] Physician GroupComment on above:Performed By: #### CBC ####[place] [address] USANRBC% 0.0 /100{WBC}Normal0-0.5The [facility] Physician GroupComment on above:Performed By: #### CBC ####[place] [address] USAPlatelet mean volume (Bld) [Entitic vol]8.0 fLNormal6.6-10.1The [facility] Physician GroupComment on above:Performed By: #### CBC ####[place] [address] USAPlatelets (Bld) [#/Vol]257 10*3/sRPnfwiw796-059Meb [facility] Physician GroupComment on above: Performed By: #### CBC ####[address] [address] USARBC (Bld) [#/Vol]3.98 10*6/uLNormal3.90-5.60The [facility] Physician GroupComment on above:Performed By: #### CBC ####[place] [address] USAWBC (Bld) [#/Vol]6.5 10*3/uLNormal4.1-10.5The [facility] Physician GroupComment on above:Performed By: #### CBC ####[place] [id number] USAWhite Blood Count6.5 [CFU]/mLNormal4.1-10.5The [facility] Comment on above:Performed By: #### CBC ####[place] [id number] USABasic Metabolic Panelon 05-06-2877Dmxlh gap [Moles/Vol]8.3 mmol/LNormal6.0-15.0The [facility] Physician GroupComment on above:Performed By: #### BMP, CBC ####[place] [id number] USACalcium [Mass/Vol]8.5 mg/dLLow8.6-10.3The [facility] Physician GroupComment on above:Performed By: #### BMP, CBC ####[place] [id number] USAChloride [Moles/Vol] 101 mmol/STtajcd10-542Shj [facility] Physician GroupComment on above:Performed By: #### BMP, CBC ####[place] [id number] USACO2 [Moles/Vol]31.6 mmol/LHigh21.0-31.0The [facility] Comment on above:Performed By: #### BMP, CBC ####[address] [address] USACreatinine [Mass/Vol]1.10 mg/dLNormal 0.70-1.30The [facility] Physician GroupComment on above:Performed By: #### BMP, CBC ####[address] [address] [place] Creatinine Clr Calc Ocnihsed77.53NormalThe [facility] Physician GroupComment on above:Result Comment: PERFORMED BY:[address] [place], [place] [phone] MEDICAL ELÍAS GERMAN M.D.Performed By: #### BMP, CBC ####[address] [address] USAGFR/1.73 sq M.predicted MDRD (S/P/Bld) [Vol rate/Area]mL/min/{1.73_m2}NormalThe [facility] Physician GroupComment on above: Performed By: #### BMP, CBC ####[address] [address] USAGlucose [Mass/Vol]95 mg/gSAfaifp54-049Sei [facility] Physician GroupComment on above:Result Comment: Random Glucose Reference Range is dependent on time and content of last meal. Glucose of more than 200 mg/dL in a nonstressed, ambulatory subject supports the diagnosis of Diabetes Mellitus. ADA recommended reference rangePerformed By: #### BMP, CBC ####[address] [address] USAPotassium [Moles/Vol] 3.9 mmol/LNormal3.5-5.1The [facility] Physician GroupComment on above:Performed By: #### BMP, CBC ####[address] [address] USASodium [Moles/Vol]137 mmol/HNfowmc532-814Mum [facility] Physician GroupComment on above:Performed By: #### BMP, CBC ####[address] [address] USAUrea nitrogen [Mass/Vol]33 mg/dLHigh 7-25The [facility] Physician GroupComment on above:Performed By: #### BMP, CBC ####[place] [id number] [facility] Complete Blood Count Auto Diffon [id number] (Bld) [#/Vol]0.0 10*3/uL Normal0.0-0.2The [facility] Physician GroupComment on above:Result Comment: PERFORMED BY:[address] [place], [place] [phone] MEDICAL DIRECTORCELESTE GERMAN M.D.Performed By: #### BMP, CBC ####[place] [id number] USABasophils/100 WBC (Bld)0.8 %Normal.The [facility] Physician GroupComment on above:Performed By: #### BMP, CBC ####[place] [address] USAEosinophils (Bld) [#/Vol]0.0 10*3/uLNormal 0.0-0.45The [facility] Physician GroupComment on above:Performed By: #### BMP, CBC ####[place] [address] [place] Eosinophils/100 WBC (Bld)0.9 %Normal.The [facility] Physician GroupComment on above:Performed By: #### BMP, CBC ####[place] [address] USAErythrocyte distribution width (RBC) [Ratio]14.4 % Dilohm09.0-14.8The [facility] Physician GroupComment on above:Performed By: #### BMP, CBC ####[place] [address] USAHematocrit (Bld) [Volume fraction]33.5 %Low38.8-50.0The [facility] Physician GroupComment on above:Performed By: #### BMP, CBC ####[place] [address] USAHemoglobin (Bld) [Mass/Vol]11.1 g/dL Low13.0-17.0The [facility] Physician GroupComment on above:Performed By: #### BMP, CBC ####[place] [address] USALymphocytes (Bld) [#/Vol]1.0 10*3/uLNormal1.00-4.8The [facility] Physician GroupComment on above:Performed By: #### BMP, CBC ####[place] [address] USALymphocytes/100 WBC (Bld)17.1 %Normal .The [facility] Physician GroupComment on above:Performed By: #### BMP, CBC ####[address] (RBC) [Entitic mass]30.1 lpSmsjzi79.5-35.2The [facility] Physician GroupComment on above:Performed By: #### BMP, CBC ####[address]V (RBC) [Entitic vol]90.5 sTVwjxjz77.5-101 The [facility] Physician GroupComment on above:Performed By: #### BMP, CBC ####[place] [address] USAMean Corpuscular HGB Conc33.2 g/lXPsnham83.5-35.6The [facility] Physician GroupComment on above:Performed By: #### BMP, CBC ####[place] [address] USAMonocytes (Bld) [#/Vol]0.4 10*3/uLNormal 0.0-0.8The [facility] Physician GroupComment on above:Performed By: #### BMP, CBC ####[place] [address] [place] Monocytes/100 WBC (Bld)6.3 %Normal.The [facility] Physician GroupComment on above:Performed By: #### BMP, CBC ####[address] [address] USANeutrophils (Bld) [#/Vol]4.3 10*3/uLNormal1.8-7.7The [facility] Physician GroupComment on above:Performed By: #### BMP, CBC ####[address] [address] [place] Neutrophils/100 WBC (Bld)74.9 %Normal.The [facility] Physician GroupComment on above:Performed By: #### BMP, CBC ####[place] [id number] USANRBC%0.2 /100{WBC}Normal0-0.5The [facility] Physician GroupComment on above:Performed By: #### BMP, CBC ####[place] [address] USAPlatelet mean volume (Bld) [Entitic vol]8.2 fLNormal6.6-10.1The [facility] Physician GroupComment on above: Performed By: #### BMP, CBC ####[place] [id number] USAPlatelets (Bld) [#/Vol]200 10*3/fRJoptye903-585Rkh [facility] Physician GroupComment on above:Performed By: #### BMP, CBC ####[place] [id number] USARBC (Bld) [#/Vol]3.70 10*6/uLLow3.90-5.60The [facility] Physician GroupComment on above:Performed By: #### BMP, CBC ####[address] [address] USAWBC (Bld) [#/Vol]5.7 10*3/uLNormal4.1-10.5The [facility] Physician GroupComment on above:Performed By: #### BMP, CBC ####[place] [id number] USAWhite Blood Count5.7 [CFU]/mLNormal4.1-10.5The [facility] Physician GroupComment on above:Performed By: #### BMP, CBC ####[address] [address] USABasic Metabolic Panelon 02-90-1748Ngfrn gap [Moles/Vol]8.6 mmol/LNormal6.0-15.0The [facility] Physician GroupComment on above:Performed By: #### BMP, CBC ####[address] [address] USACalcium [Mass/Vol]8.3 mg/dLLow8.6-10.3The [facility] Physician GroupComment on above:Performed By: #### BMP, CBC ####[address] [address] USAChloride [Moles/Vol] 105 mmol/VPlxnns05-800Dyn [facility] Physician GroupComment on above:Performed By: #### BMP, CBC ####[address] [address] USACO2 [Moles/Vol]32.7 mmol/LHigh21.0-31.0The [facility] Group Comment on above:Performed By: #### BMP, CBC ####[place] [id number] USACreatinine [Mass/Vol]1.05 mg/dLNormal 0.70-1.30The [facility] Physician GroupComment on above:Performed By: #### BMP, CBC ####[address] [address] [place] Creatinine Clr Calc Prpynwsg75.23NormalThe [facility] Physician GroupComment on above:Result Comment: PERFORMED BY:[address] [place], [place] [phone] MEDICAL DIRECTORCELESTE GERMAN M.D.Performed By: #### BMP, CBC ####[address] [address] USAGFR/1.73 sq M.predicted MDRD (S/P/Bld) [Vol rate/Area]mL/min/{1.73_m2}NormalThe [facility] Physician GroupComment on above: Performed By: #### BMP, CBC ####[address] [address] USAGlucose [Mass/Vol]87 mg/dBEkjedf59-160Xkt [facility] Physician GroupComment on above:Result Comment: Random Glucose Reference Range is dependent on time and content of last meal. Glucose of more than 200 mg/dL in a nonstressed, ambulatory subject supports the diagnosis of Diabetes Mellitus. ADA recommended reference rangePerformed By: #### BMP, CBC ####[address] [address] USAPotassium [Moles/Vol] 4.3 mmol/LNormal3.5-5.1The [facility] Physician GroupComment on above:Performed By: #### BMP, CBC ####[place] [id number] USASodium [Moles/Vol]142 mmol/ZPhjejc997-765Cvm [facility] Physician GroupComment on above:Performed By: #### BMP, CBC ####[address] [address] USAUrea nitrogen [Mass/Vol]30 mg/dLHigh 7-25The [facility] Physician GroupComment on above:Performed By: #### BMP, CBC ####[place] [id number] [place] Complete Blood Count Auto Diffon [id number] (Bld) [#/Vol]0.1 10*3/uL Normal0.0-0.2The [facility] Physician GroupComment on above:Result Comment: PERFORMED BY:[address] [place]Jerem[place], [place] [phone] MEDICAL DIRECTORCELESTE GERMAN M.D.Performed By: #### BMP, CBC ####[place] [phone] USABasophils/100 WBC (Bld)0.8 %Normal.The [facility] Physician GroupComment on above:Performed By: #### BMP, CBC ####[address] [place] [address] USAEosinophils (Bld) [#/Vol]0.0 10*3/uLNormal 0.0-0.45The [facility] Physician GroupComment on above:Performed By: #### BMP, CBC ####[place] [address] [place] Eosinophils/100 WBC (Bld)0.6 %Normal.The [facility] Physician GroupComment on above:Performed By: #### BMP, CBC ####[place] [address] USAErythrocyte distribution width (RBC) [Ratio]15.0 % High12.0-14.8The [facility] Physician GroupComment on above:Performed By: #### BMP, CBC ####[place] [address] USAHematocrit (Bld) [Volume fraction]35.8 %Low38.8-50.0The [facility] Physician GroupComment on above:Performed By: #### BMP, CBC ####[place] [address] USAHemoglobin (Bld) [Mass/Vol]11.8 g/dL Low13.0-17.0The [facility] Physician GroupComment on above:Performed By: #### BMP, CBC ####[place] [address] USALymphocytes (Bld) [#/Vol]0.8 10*3/uLLow1.00-4.8The [facility] Comment on above:Performed By: #### BMP, CBC ####[place] [address] USALymphocytes/100 WBC (Bld)13.2 %Normal. The [facility] Physician GroupComment on above:Performed By: #### BMP, CBC ####[place] [address] USAMCH (RBC) [Entitic mass]30.2 ysFjdfqy21.5-35.2The [facility] Physician GroupComment on above:Performed By: #### BMP, CBC ####[place] [address] USAMCV (RBC) [Entitic vol]92.0 cYRfxzhh55.5-101 The [facility] Physician GroupComment on above:Performed By: #### BMP, CBC ####[place] [address] USAMean Corpuscular HGB Conc32.8 g/lHHvovzt40.5-35.6The [facility] Physician GroupComment on above:Performed By: #### BMP, CBC ####[place] [address] USAMonocytes (Bld) [#/Vol]0.3 10*3/uLNormal 0.0-0.8The [facility] Physician GroupComment on above:Performed By: #### BMP, CBC ####[place] [address] [place] Monocytes/100 WBC (Bld)4.9 %Normal.The [facility] Physician GroupComment on above:Performed By: #### BMP, CBC ####[place] [address] USANeutrophils (Bld) [#/Vol]5.1 10*3/uLNormal1.8-7.7The [facility] Physician GroupComment on above:Performed By: #### BMP, CBC ####[place] [address] [place] Neutrophils/100 WBC (Bld)80.5 %Normal.The [facility] Physician GroupComment on above:Performed By: #### BMP, CBC ####[place] [address] USANRBC%0.2 /100{WBC}Normal0-0.5The [facility] Physician GroupComment on above:Performed By: #### BMP, CBC ####[place] [address] USAPlatelet mean volume (Bld) [Entitic vol]8.0 fLNormal6.6-10.1The [facility] Physician GroupComment on above: Performed By: #### BMP, CBC ####[address] [address] USAPlatelets (Bld) [#/Vol]213 10*3/pFRtkhqs262-045Jcr [facility] Physician GroupComment on above:Performed By: #### BMP, CBC ####[place] [phone] USARBC (Bld) [#/Vol]3.89 10*6/uLLow3.90-5.60The [facility] Physician GroupComment on above:Performed By: #### BMP, CBC ####[place] [phone] USAWBC (Bld) [#/Vol]6.4 10*3/uLNormal4.1-10.5The [facility] Physician GroupComment on above:Performed By: #### BMP, CBC ####[place] [phone] USAWhite Blood Count6.4 [CFU]/mLNormal4.1-10.5The [facility] Physician GroupComment on above:Performed By: #### BMP, CBC ####[place] [id number] USAGlucose Poct Glucometerson 89-89-3409Upgcjef3Mfp9: Cleaned [facility] Physician [facility] HospitalComment on above:Result Comment: PERFORMED BY:[address] [place]ScarlettJeremiSH[place], [place] [phone] MEDICAL ELÍAS GERMAN M.D.Performed By: #### GLULS ####Point of Care testing,Glucose [Mass/Vol]111 mg/dLU[facility] Physician [facility] HospitalComment on above:Result Comment: Random Glucose Reference Range is dependent on time and content of last meal. Glucose of more than 200 mg/dL in a nonstressed, ambulatory subject supports the diagnosis of Diabetes Mellitus.Performed By: #### GLULS ####Point of Care testing,Commemt1 Glu2: Cleaned MeterNormalThe [place] Physician GroupComment on above:Result Comment: PERFORMED BY:[address] CANDELARIOJeremiSHAR, [place] [phone] MEDICAL DIRECTORCELESTE GERMAN M.D.Performed By: #### GLULS ####Point of Care testing,Glucose [Mass/Vol]97 mg/dLUF Health Leesburg Hospital Physician GroupComment on above:Result Comment: Random Glucose Reference Range is dependent on time and content of last meal. Glucose of more than 200 mg/dL in a nonstressed, ambulatory subject supports the diagnosis of Diabetes Mellitus.Performed By: #### GLULS ####Point of Care testing,Glucose [Mass/Vol]101 mg/dLUF Health Leesburg Hospital Physician GroupComment on above:Result Comment: Random Glucose Reference Range is dependent on time and content of last meal. Glucose of more than 200 mg/dL in a nonstressed, ambulatory subject supports the diagnosis of Diabetes Mellitus.PERFORMED BY:[place] [address] [address] CANDELARIOJeremiSHAR, [place] [phone] MEDICAL ELÍAS GERMAN M.D.Performed By: #### GLULS ####Point of Care testing, Llhbiym5Hnu2: Cleaned MeterUF Health Leesburg Hospital Physician GroupComment on above: Result Comment: PERFORMED BY:[address] CANDELARIOJeremiSHAR, [place] [phone] MEDICAL ELÍAS GERMAN M.D.Performed By: #### GLULS ####Point of Care testing,Glucose [Mass/Vol]110 mg/dLUF Health Leesburg Hospital Physician GroupComment on above:Result Comment: Random Glucose Reference Range is dependent on time and content of last meal. Glucose of more than 200 mg/dL in a nonstressed, ambulatory subject supports the diagnosis of Diabetes Mellitus.Performed By: #### GLULS ####Point of Care testing,Arterial Blood Gason [id number] Base Excess4.8 mmol/LHigh-3.0-3.0The [facility] Physician GroupComment on above:Performed By: #### ABG ####Point of Care testing,ABG Frac Inspired O235 %NormalThe [facility] Physician GroupComment on above:Performed By: #### ABG ####Point of Care testing,ABG Oxygen Content7.6 mmol/LNormal6.6-9.7The [facility] Physician GroupComment on above:Performed By: #### ABG ####Point of Care testing,ABG Oxygen Eklybdgavu23.4 %Low95.0-100.0The [facility] Physician GroupComment on above:Performed By: #### ABG ####Point of Care testing,ABG NKB060.5 mm[Hg]High35.0-45.0[facility] Physician [facility] Comment on above:Performed By: #### ABG ####Point of Care testing,ABG PH7.41 Normal7.35-7.45The [facility] Physician GroupComment on above:Performed By: #### ABG ####Point of Care testing,ABG PO260.5 mm[Hg]Low80.0-100.0The [facility] Physician GroupComment on above:Performed By: #### ABG ####Point of Care testing,ABG Pressure Cgqvolv13.0[facility] Physician GroupComment on above:Performed By: #### ABG ####Point of Care testing,CO2 [Moles/Vol]31.8 mmol/LHigh23.0-27.0The [facility] Physician GroupComment on above:Performed By: #### ABG ####Point of Care testing,CPAP5.0NoAdventHealth [facility]ville Physician [facility] Comment on above:Performed By: #### ABG ####Point of Care testing,HCO3 (Bld) [Moles/Vol]30.3 mmol/LHigh23.0-29.0The [facility] Physician GroupComment on above:Performed By: #### ABG ####Point of Care testing,Respiratory Critical NormalHca [facility] Hospital Physician GroupComment on above:Result Comment: Critical Value called on: 08/07/2025 at 14:47PERFORMED BY:[place] [address] [address] DOMINGUEZNEW [place], [place] [phone] MEDICAL DIRECTORCELESTE GERMAN M.D.Performed By: #### ABG ####Point of Care testing, VBG Draw SiteRight RadialUF Health Leesburg Hospital Physician GroupComment on above: Performed By: #### ABG ####Point of Care testing,Ventilator ModeCPAPUF Health Leesburg Hospital Physician GroupComment on above:Performed By: #### ABG ####Point of Care testing,ABG Base Excess6.2 mmol/LHigh-3.0-3.0The [facility] Group Comment on above:Performed By: #### ABG ####Point of Care testing,ABG Frac Inspired O230 %NormalThe [facility] Physician GroupComment on above:Performed By: #### ABG ####Point of Care testing,ABG Oxygen Content7.1 mmol/LNormal6.6-9.7The [facility] Physician GroupComment on above:Performed By: #### ABG ####Point of Care testing,ABG Oxygen Ixggtfftvj15.7 %Low95.0-100.0[facility] Physician GroupComment on above:Performed By: #### ABG ####Point of Care testing,ABG PCO2 42.6 mm[Hg]Gshqez80.0-45.0The [facility] Physician GroupComment on above: Performed By: #### ABG ####Point of Care testing,ABG BTXN2SxvetsTmuUF Health Leesburg Hospital Physician GroupComment on above:Performed By: #### ABG ####Point of Care testing,ABG PH7.90Noip5.35-7.45[facility] Physician GroupComment on above: Performed By: #### ABG ####Point of Care testing,ABG PO258.8 mm[Hg]Low80.0-100.0 The [facility] Physician GroupComment on above:Performed By: #### ABG ####Point of Care testing,ABG TV450 mLNormalThe [facility] Physician GroupComment on above: Performed By: #### ABG ####Point of Care testing,CO2 [Moles/Vol]31.8 mmol/LHigh 23.0-27.0The [facility] Physician GroupComment on above:Performed By: #### ABG ####Point of Care testing,HCO3 (Bld) [Moles/Vol]30.4 mmol/LHigh23.0-29.0The [facility] Physician GroupComment on above:Performed By: #### ABG ####Point of Care testing,Respiratory CriticalUF Health Leesburg Hospital Physician GroupComment on above:Result Comment: Critical Value called on: 08/07/2025 at 05:39PERFORMED BY:[address] [place], [place] [phone] MEDICAL DIRECTORCELESTE GERMAN M.D.Performed By: #### ABG ####Point of Care testing,Set Respiratory Uymj[address] [place] [address] Physician GroupComment on above:Performed By: #### ABG ####Point of Care testing,VBG Draw SiteLeft BrachialUF Health Leesburg Hospital Physician GroupComment on above:Performed By: #### ABG ####Point of Care testing,Ventilator ModeACNormal The [facility] Physician GroupComment on above:Performed By: #### ABG ####Point of Care testing,Basic Metabolic Panelon [id number] gap [Moles/Vol]9.4 mmol/LNormal6.0-15.0The [facility] Physician GroupComment on above:Performed By: #### CBC, BMP ####[address] [address] USACalcium [Mass/Vol]8.3 mg/dLLow8.6-10.3The [facility] Comment on above:Performed By: #### CBC, BMP ####[address] [address] USAChloride [Moles/Vol]105 mmol/LNormal 98-107The [facility] Physician GroupComment on above:Performed By: #### CBC, BMP ####[address] [address] USACO2 [Moles/Vol]33.9 mmol/LHigh21.0-31.0The [facility] Physician GroupComment on above:Performed By: #### CBC, BMP ####[place] [address] [place] [address] USACreatinine [Mass/Vol]1.08 mg/dLNormal0.70-1.30The [facility] Physician GroupComment on above:Performed By: #### CBC, BMP ####[address] [address] [place] Creatinine Clr Calc Eequcnyp48.59NormalThe [facility] Physician GroupComment on above:Result Comment: PERFORMED BY:[address] [place], [place] [phone] MEDICAL DIRECTORCELESTE GERMAN M.D.Performed By: #### CBC, BMP ####[address] [address] USAGFR/1.73 sq M.predicted MDRD (S/P/Bld) [Vol rate/Area]mL/min/{1.73_m2}NormalThe [facility] Physician GroupComment on above: Performed By: #### CBC, BMP ####[address] [address] USAGlucose [Mass/Vol]106 mg/dALcvo99-879Yhz [facility] Physician GroupComment on above:Result Comment: Random Glucose Reference Range is dependent on time and content of last meal. Glucose of more than 200 mg/dL in a nonstressed, ambulatory subject supports the diagnosis of Diabetes Mellitus. ADA recommended reference rangePerformed By: #### CBC, BMP ####[address] [address] USAPotassium [Moles/Vol] 4.3 mmol/LNormal3.5-5.1The [facility] Physician GroupComment on above:Performed By: #### CBC, BMP ####[address] [address] USASodium [Moles/Vol]144 mmol/CSrseku018-171Flc [facility] Physician GroupComment on above:Performed By: #### CBC, BMP ####[address] [place] [address] USAUrea nitrogen [Mass/Vol]27 mg/dLHigh 7-25The [facility] Physician GroupComment on above:Performed By: #### CBC, BMP ####[place] [id number] [facility] Complete Blood Count Auto Diffon [id number] (Bld) [#/Vol]0.0 10*3/uL Normal0.0-0.2The [facility] Physician GroupComment on above:Result Comment: PERFORMED BY:[address] [place], [place] [phone] MEDICAL DIRECTORCELESTE GERMAN M.D.Performed By: #### CBC, BMP ####[place] [phone] USABasophils/100 WBC (Bld)0.7 %Normal.The [facility] Physician GroupComment on above:Performed By: #### CBC, BMP ####[place] [id number] USAEosinophils (Bld) [#/Vol]0.1 10*3/uLNormal 0.0-0.45The [facility] Physician GroupComment on above:Performed By: #### CBC, BMP ####[place] [address] [place] Eosinophils/100 WBC (Bld)0.8 %Normal.The [facility] Physician GroupComment on above:Performed By: #### CBC, BMP ####[place] [id number] [facility] CENTERErythrocyte distribution width (RBC) [Ratio]15.4 % High12.0-14.8The [facility] Physician GroupComment on above:Performed By: #### CBC, BMP ####[place] [address] USAHematocrit (Bld) [Volume fraction]38.0 %Low38.8-50.0The [facility] Physician GroupComment on above:Performed By: #### CBC, BMP ####[address] [address] USAHemoglobin (Bld) [Mass/Vol]12.2 g/dL Low13.0-17.0The [facility] Physician GroupComment on above:Performed By: #### CBC, BMP ####[address] [address] USALymphocytes (Bld) [#/Vol]0.9 10*3/uLLow1.00-4.8The [facility]ician [facility] Comment on above:Performed By: #### CBC, BMP ####[address] [address] USALymphocytes/100 WBC (Bld)13.0 %Normal. The [facility] Physician GroupComment on above:Performed By: #### CBC, BMP ####[address] [address] USAMCH (RBC) [Entitic mass]30.1 vfZyykpd36.5-35.2The [facility] Physician GroupComment on above:Performed By: #### CBC, BMP ####[address] [address] USAMCV (RBC) [Entitic vol]93.5 nQHqhkut64.5-101 The [facility] Physician GroupComment on above:Performed By: #### CBC, BMP ####[address] [address] USAMean Corpuscular HGB Conc32.2 g/dLLow32.5-35.6The [facility] Physician GroupComment on above:Performed By: #### CBC, BMP ####[address] [address] USAMonocytes (Bld) [#/Vol]0.5 10*3/uLNormal0.0-0.8The [facility] Physician GroupComment on above:Performed By: #### CBC, BMP ####[address] [address] [place] Monocytes/100 WBC (Bld)8.1 %Normal.The [facility] Physician GroupComment on above:Performed By: #### CBC, BMP ####[address] [address] USANeutrophils (Bld) [#/Vol]5.2 10*3/uLNormal1.8-7.7The [facility] Physician GroupComment on above:Performed By: #### CBC, BMP ####[place] [id number] [place] Neutrophils/100 WBC (Bld)77.4 %Normal.The [facility] Physician GroupComment on above:Performed By: #### CBC, BMP ####[address] [address] USANRBC%0.1 /100{WBC}Normal0-0.5The [facility] Physician GroupComment on above:Performed By: #### CBC, BMP ####[place] [address] USAPlatelet mean volume (Bld) [Entitic vol]7.9 fLNormal6.6-10.1The [facility] Physician GroupComment on above: Performed By: #### CBC, BMP ####[address] [address] USAPlatelets (Bld) [#/Vol]208 10*3/sIQkruzp220-682Dgq [facility] Physician GroupComment on above:Performed By: #### CBC, BMP ####[address] [address] USARBC (Bld) [#/Vol]4.07 10*6/uLNormal3.90-5.60The [facility] Physician GroupComment on above:Performed By: #### CBC, BMP ####[address] [address] USAWBC (Bld) [#/Vol]6.7 10*3/uLNormal4.1-10.5The [facility] Physician GroupComment on above:Performed By: #### CBC, BMP ####[place] [id number] USAWhite Blood Count6.7 [CFU]/mLNormal4.1-10.5The [facility] Physician [facility] HospitalComment on above:Performed By: #### CBC, BMP ####[address] [address] USAGlucose Poct Glucometerson 54-87-0726Vnsntjk [Mass/Vol]104 mg/dLNoAdventHealth Hendersonville Physician [facility] HospitalComment on above:Result Comment: Random Glucose Reference Range is dependent on time and content of last meal. Glucose of more than 200 mg/dL in a nonstressed, ambulatory subject supports the diagnosis of Diabetes Mellitus.PERFORMED BY:[address]ASHISHSHAR, [place] [phone] MEDICAL ELÍAS GERMAN M.D.Performed By: #### GLULS ####Point of Care testing, Glucose [Mass/Vol]99 mg/dLNoBethesda North HospitalComment on above: Result Comment: Random Glucose Reference Range is dependent on time and content of last meal. Glucose of more than 200 mg/dL in a nonstressed, ambulatory subject supports the diagnosis of Diabetes Mellitus.PERFORMED BY:[address]SH[address], [place] [phone] MEDICAL ELÍAS GERMAN M.D.Performed By: #### GLULS ####Point of Care testing,Glucose [Mass/Vol]105 mg/dLNoAdventHealth [facility]ville Physician [facility] HospitalComment on above:Result Comment: Random Glucose Reference Range is dependent on time and content of last meal. Glucose of more than 200 mg/dL in a nonstressed, ambulatory subject supports the diagnosis of Diabetes Mellitus.PERFORMED BY:[address]ScarlettHSAR, [place] [phone] MEDICAL ELÍAS GERMAN M.D.Performed By: #### GLULS ####Point of Care testing,XR chest 1V portableon 20-71-3707BP chest 1V portableNoAdventHealth Hendersonville Physician [facility] HospitalArterial Blood Gason [id number] Base Excess9.2 mmol/LHigh-3.0-3.0The [facility] Physician GroupComment on above: Performed By: #### ABG ####Point of Care testing,ABG Frac Inspired O245 %Normal The [facility] Physician GroupComment on above:Performed By: #### ABG ####Point of Care testing,ABG Oxygen Content7.2 mmol/LNormal6.6-9.7The [facility] Physician GroupComment on above:Performed By: #### ABG ####Point of Care testing,ABG Oxygen Wnryxrwzup81.3 %Low95.0-100.0The [facility] Physician GroupComment on above:Performed By: #### ABG ####Point of Care testing,ABG LVH866.4 mm[Hg]High 35.0-45.0The [facility] Physician GroupComment on above:Performed By: #### ABG ####Point of Care testing,ABG HWBV1CzlkcsJxjDeSoto Memorial Hospital Physician GroupComment on above:Performed By: #### ABG ####Point of Care testing,ABG PH7.11Aljq7.35-7.45 [facility] Physician GroupComment on above:Performed By: #### ABG ####Point of Care testing,ABG PO257.6 mm[Hg]Low80.0-100.0The [facility] Physician Group Comment on above:Performed By: #### ABG ####Point of Care testing,ABG TV400 mL NormalThe [facility] Physician GroupComment on above:Performed By: #### ABG ####Point of Care testing,CO2 [Moles/Vol]35.7 mmol/LHigh23.0-27.0The [facility] Physician GroupComment on above:Performed By: #### ABG ####Point of Care testing,HCO3 (Bld) [Moles/Vol]34.2 mmol/LHigh23.0-29.0The [facility] Physician GroupComment on above:Performed By: #### ABG ####Point of Care testing, Respiratory CriticalNormDeSoto Memorial Hospital Physician GroupComment on above:Result Comment: Critical Value called on: 08/06/2025 at 04:09PERFORMED BY:[address] [place], [place] [phone] MEDICAL DIRECTORCELESTE GERMAN M.D.Performed By: #### ABG ####Point of Care testing,Set Respiratory Budh69KztxqyCce[address] [place] [address] Physician GroupComment on above:Performed By: #### ABG ####Point of Care testing,VBG Draw SiteRight BrachialUF Health Leesburg Hospital Physician GroupComment on above:Performed By: #### ABG ####Point of Care testing,Ventilator ModeACUF Health Leesburg Hospital Physician GroupComment on above:Performed By: #### ABG ####Point of Care testing,Basic Metabolic Panelon 84-42-6700Bqqgo gap [Moles/Vol]8.9 mmol/LNormal6.0-15.0The [facility] Physician GroupComment on above:Performed By: #### BMP, TRIG, MG, CBC ####[place] [address] USACalcium [Mass/Vol]8.6 mg/dLNormal8.6-10.3The [facility] Physician GroupComment on above: Performed By: #### BMP, TRIG, MG, CBC ####[place] [address] USAChloride [Moles/Vol]109 mmol/VFpbn00-690Cnb [facility] Physician GroupComment on above:Performed By: #### BMP, TRIG, MG, CBC ####[place] [id number] USACO2 [Moles/Vol]33.1 mmol/LHigh21.0-31.0The [facility] Physician GroupComment on above:Performed By: #### BMP, TRIG, MG, CBC ####[place] [id number] USACreatinine [Mass/Vol]1.07 mg/dLNormal 0.70-1.30The [facility] Physician GroupComment on above:Performed By: #### BMP, TRIG, MG, CBC ####[place] [id number] USACreatinine Clr Calc Dhgzbkve13.60NormalThe [facility] Physician Group Comment on above:Performed By: #### BMP, TRIG, MG, CBC ####[place] [id number] USAGFR/1.73 sq M.predicted MDRD (S/P/Bld) [Vol rate/Area]mL/min/{1.73_m2}NormalThe [facility]ician Group Comment on above:Performed By: #### BMP, TRIG, MG, CBC ####[place] [address] USAGlucose [Mass/Vol]101 mg/dL Atpi29-814Sov [facility] Physician [facility] HospitalComment on above:Result Comment: Random Glucose Reference Range is dependent on time and content of last meal. Glucose of more than 200 mg/dL in a nonstressed, ambulatory subject supports the diagnosis of Diabetes Mellitus. ADA recommended reference rangePerformed By: #### BMP, TRIG, MG, CBC ####[place] [address] USAPotassium [Moles/Vol]4.0 mmol/LNormal3.5-5.1The [facility] Physician [facility] HospitalComment on above:Performed By: #### BMP, TRIG, MG, CBC ####[place] [address] USASodium [Moles/Vol]147 mmol/BSnuz092-554Gmr [facility] Physician [facility] HospitalComment on above: Performed By: #### BMP, TRIG, MG, CBC ####[place] [id number] USAUrea nitrogen [Mass/Vol]23 mg/dLNormal7-25The [facility] Physician GroupComment on above:Performed By: #### BMP, TRIG, MG, CBC ####[address] Complete Blood Count Auto Diffon 91-67-8660Fzxtlzjsa (Bld) [#/Vol]0.0 10*3/uL Normal0.0-0.2The [facility] Physician GroupComment on above:Result Comment: PERFORMED BY:[address] [place], [place] [phone] MEDICAL DIRECTORCELESTE GERMAN M.D.Performed By: #### BMP, TRIG, MG, CBC ####[place] [id number] USABasophils/100 WBC (Bld)0.2 %Normal.The [facility] Physician GroupComment on above:Performed By: #### BMP, TRIG, MG, CBC ####[place] [address] [place] Eosinophils (Bld) [#/Vol]0.1 10*3/uLNormal0.0-0.45The [facility] Physician Group Comment on above:Performed By: #### BMP, TRIG, MG, CBC ####[place] [address] USAEosinophils/100 WBC (Bld)1.2 % Normal.The [facility] Physician GroupComment on above:Performed By: #### BMP, TRIG, MG, CBC ####[place] [address] USAErythrocyte distribution width (RBC) [Ratio]15.8 %High12.0-14.8The [facility] Physician GroupComment on above:Performed By: #### BMP, TRIG, MG, CBC ####[place] [id number] [place] Hematocrit (Bld) [Volume fraction]36.4 %Low38.8-50.0The [facility] Physician GroupComment on above:Performed By: #### BMP, TRIG, MG, CBC ####[place] [id number] USAHemoglobin (Bld) [Mass/Vol]12.1 g/dLLow13.0-17.0The [facility] Physician GroupComment on above: Performed By: #### BMP, TRIG, MG, CBC ####[place] [address] USALymphocytes (Bld) [#/Vol]0.6 10*3/uLLow 1.00-4.8The [facility] Physician GroupComment on above:Performed By: #### BMP, TRIG, MG, CBC ####[place] [id number] USALymphocytes/100 WBC (Bld)10.3 %Normal.The [facility] Physician Group Comment on above:Performed By: #### BMP, TRIG, MG, CBC ####[place] [id number] [facility] [place] [Entitic mass]30.5 kjDnjgso36.5-35.2The [facility] Physician GroupComment on above:Performed By: #### BMP, TRIG, MG, CBC ####[address] (RBC) [Entitic vol]92.1 tQJianom59.5-101The [facility] Physician GroupComment on above:Performed By: #### BMP, TRIG, MG, CBC ####[place] [address] USAMean Corpuscular HGB Conc33.1 g/vIKnngna25.5-35.6The [facility] Physician GroupComment on above:Performed By: #### BMP, TRIG, MG, CBC ####[place] [address] USAMonocytes (Bld) [#/Vol]0.4 10*3/uL Normal0.0-0.8The [facility] Physician GroupComment on above:Performed By: #### BMP, TRIG, MG, CBC ####[place] [address] USAMonocytes/100 WBC (Bld)7.1 %Normal.The [facility] Physician Group Comment on above:Performed By: #### BMP, TRIG, MG, CBC ####[place] [address] USANeutrophils (Bld) [#/Vol]4.9 10*3/uLNormal1.8-7.7The [facility] Physician GroupComment on above:Performed By: #### BMP, TRIG, MG, CBC ####[place] [address] USANeutrophils/100 WBC (Bld)81.2 %Normal.The [facility] Physician GroupComment on above:Performed By: #### BMP, TRIG, MG, CBC ####[place] [address] USANRBC% 0.0 /100{WBC}Normal0-0.5The [facility] Physician GroupComment on above:Performed By: #### BMP, TRIG, MG, CBC ####[place] [address] USAPlatelet mean volume (Bld) [Entitic vol]7.5 fLNormal 6.6-10.1The [facility] Physician GroupComment on above:Performed By: #### BMP, TRIG, MG, CBC ####[place] [address] USAPlatelets (Bld) [#/Vol]208 10*3/zRMcfprq822-826Eqc [facility] Physician GroupComment on above:Performed By: #### BMP, TRIG, MG, CBC ####[place] [address] USARBC (Bld) [#/Vol]3.95 10*6/uLNormal3.90-5.60The [facility] Physician GroupComment on above:Performed By: #### BMP, TRIG, MG, CBC ####[place] [address] USAWBC (Bld) [#/Vol]6.0 10*3/uLNormal4.1-10.5The [facility] Physician GroupComment on above:Performed By: #### BMP, TRIG, MG, CBC ####[place] [address] USAWhite Blood Count6.0 [CFU]/mLNormal4.1-10.5The [facility] Physician GroupComment on above:Performed By: #### BMP, TRIG, MG, CBC ####[place] [address] [place] [address] USAGlucose Poct Glucometerson 08-06-2025 Glucose [Mass/Vol]147 mg/dLNoAdventHealth [facility]ville Physician GroupComment on above: Result Comment: Random Glucose Reference Range is dependent on time and content of last meal. Glucose of more than 200 mg/dL in a nonstressed, ambulatory subject supports the diagnosis of Diabetes Mellitus.PERFORMED BY:[address] CANDELARIOJeremiHSAR, [place] [phone] MEDICAL ELÍAS GERMAN M.D.Performed By: #### GLULS ####Point of Care testing,Glucose [Mass/Vol]120 mg/dLNoAdventHealth [facility]ville Physician GroupComment on above:Result Comment: Random Glucose Reference Range is dependent on time and content of last meal. Glucose of more than 200 mg/dL in a nonstressed, ambulatory subject supports the diagnosis of Diabetes Mellitus.PERFORMED BY:[address] [place], [place] [phone] MEDICAL ELÍAS GERMAN M.D.Performed By: #### GLULS ####Point of Care testing,Glucose [Mass/Vol]117 mg/dLNoAdventHealth [facility]ville Physician GroupComment on above:Result Comment: Random Glucose Reference Range is dependent on time and content of last meal. Glucose of more than 200 mg/dL in a nonstressed, ambulatory subject supports the diagnosis of Diabetes Mellitus.PERFORMED BY:[address] [place]REEJeremiSHAR, [place] [phone] MEDICAL ELÍAS GERMAN M.D.Performed By: #### GLULS ####Point of Care testing,Magnesiumon 08-06-2025 Magnesium [Mass/Vol]1.9 mg/dLNormal1.9-2.7The [facility] Physician GroupComment on above:Result Comment: PERFORMED BY:[address] [place], [place] [phone] MEDICAL ELÍAS GERMAN M.D.Performed By: #### BMP, TRIG, MG, CBC ####[facility] [address] [place] [address] USATriglycerideson 08-06-2025 Triglyceride [Mass/Vol]70 mg/gYCvapnt97-112Rlk [facility] Physician GroupComment on above:Result Comment: TRIG ATP III CLASSIFICATION TRIG less than 150 mg/dL Normal TRIG 150-199 mg/dL Borderline high TRIG 200-500 mg/dL High TRIG greater than 500 mg/dL Very high Standard traceable to the Center for Disease Conrtrol and Prevention (CDC) test method.PERFORMED BY:[facility] [place], [place] [phone] MEDICAL DIRECTORCELESTE GERMAN M.D.Performed By: #### BMP, TRIG, MG, CBC ####[place] [address] [place] [address] USAXR chest 1V portable on 29-44-1213JU chest 1V portableNormalThe [facility] Physician [facility] HospitalArterial Blood Gason [id number] Base Excess8.4 mmol/LHigh-3.0-3.0The [facility] Physician GroupComment on above:Performed By: #### ABG ####Point of Care testing,ABG Frac Inspired O255 %NormalThe [facility] Physician GroupComment on above:Performed By: #### ABG ####Point of Care testing,ABG Oxygen Content7.3 mmol/LNormal6.6-9.7The [facility] Physician GroupComment on above:Performed By: #### ABG ####Point of Care testing,ABG Oxygen Xszwkxpska10.3 %Zfbvgp01.0-100.0 The [facility] Physician GroupComment on above:Performed By: #### ABG ####Point of Care testing,ABG XYO949.7 mm[Hg]High35.0-45.0The [facility] Physician [facility] Comment on above:Performed By: #### ABG ####Point of Care testing,ABG PEEP5 NormalThe [facility] Physician GroupComment on above:Performed By: #### ABG ####Point of Care testing,ABG PH7.42Tglf1.35-7.45The [facility] Physician Group Comment on above:Performed By: #### ABG ####Point of Care testing,ABG PO274.4 mm[Hg]Low80.0-100.0The [facility] Physician GroupComment on above:Performed By: #### ABG ####Point of Care testing,ABG TV500 mLNormalThe [facility] Physician GroupComment on above:Performed By: #### ABG ####Point of Care testing,CO2 [Moles/Vol]34.4 mmol/LHigh23.0-27.0The [facility] Physician GroupComment on above:Performed By: #### ABG ####Point of Care testing,HCO3 (Bld) [Moles/Vol] 33.0 mmol/LHigh23.0-29.0The [facility] Physician GroupComment on above:Performed By: #### ABG ####Point of Care testing,Respiratory CriticalNoAdventHealth Hendersonville Physician GroupComment on above:Result Comment: Critical Value called on: 08/05/2025 at 04:04PERFORMED BY:[facility] [place], [place] [phone] MEDICAL DIRECTORCELESTE GERMAN M.D.Performed By: #### ABG ####Point of Care testing,Set Respiratory Rate12 NormalThe [facility] Physician GroupComment on above:Performed By: #### ABG ####Point of Care testing,VBG Draw SiteRight BrachialNoAdventHealth [facility]ville Physician GroupComment on above:Performed By: #### ABG ####Point of Care testing,Ventilator ModeACNoAdventHealth [facility]ville Physician GroupComment on above: Performed By: #### ABG ####Point of Care testing,Basic Metabolic Panelon 84-45-1928Gcqli gap [Moles/Vol]8.6 mmol/LNormal6.0-15.0The [facility] Physician GroupComment on above:Performed By: #### BMP, CBC ####[facility] Campbellaffinity [place] [address] USACalcium [Mass/Vol]8.4 mg/dLLow 8.6-10.3The [facility] Physician GroupComment on above:Performed By: #### BMP, CBC ####[address] [address] [place] Chloride [Moles/Vol]107 mmol/AToykuu22-027Yeu [facility] Physician GroupComment on above:Performed By: #### BMP, CBC ####[address] [address] USACO2 [Moles/Vol]31.8 mmol/LHigh21.0-31.0The [facility] Physician GroupComment on above:Performed By: #### BMP, CBC ####[address] [address] [place] Creatinine [Mass/Vol]1.06 mg/dLNormal0.70-1.30The [facility] Physician Group Comment on above:Performed By: #### BMP, CBC ####[place] [id number] USACreatinine Clr Calc Zxdwwqaj70.06 NormalThe [facility] Physician GroupComment on above:Result Comment: PERFORMED BY:[address] [place]JeremiFER[place], [place] [phone] MEDICAL DIRECTORCELESTE GERMAN M.D.Performed By: #### BMP, CBC ####[address] [address] [place] GFR/1.73 sq M.predicted MDRD (S/P/Bld) [Vol rate/Area]mL/min/{1.73_m2}NormalThe [facility] Physician GroupComment on above:Performed By: #### BMP, CBC ####[address] [address] USAGlucose [Mass/Vol]131 mg/aHOfwa93-495Vlv [facility] Physician GroupComment on above: Result Comment: Random Glucose Reference Range is dependent on time and content of last meal. Glucose of more than 200 mg/dL in a nonstressed, ambulatory subject supports the diagnosis of Diabetes Mellitus. ADA recommended reference rangePerformed By: #### BMP, CBC ####[address] [place] [address] USAPotassium [Moles/Vol]3.4 mmol/LLow3.5-5.1The [facility] Physician GroupComment on above:Performed By: #### BMP, CBC ####[place] [address] USASodium [Moles/Vol]144 mmol/EJkxyeo805-909Srn [facility] Physician GroupComment on above: Performed By: #### BMP, CBC ####[place] [address] USAUrea nitrogen [Mass/Vol]27 mg/dLHigh7-25The [facility] Physician GroupComment on above:Performed By: #### BMP, CBC ####[address] Complete Blood Count Auto Diffon 48-21-2836Qdaxbvbds (Bld) [#/Vol]0.0 10*3/uL Normal0.0-0.2The [facility] Physician [facility] HospitalComment on above:Result Comment: PERFORMED BY:[address] [place], [place] [phone] MEDICAL DIRECTORCELESTE GERMAN M.D.Performed By: #### BMP, CBC ####[place] [address] USABasophils/100 WBC (Bld)0.5 %Normal.The [facility] Physician GroupComment on above:Performed By: #### BMP, CBC ####[place] [address] USAEosinophils (Bld) [#/Vol]0.1 10*3/uLNormal 0.0-0.45The [facility] Physician [facility] HospitalComment on above:Performed By: #### BMP, CBC ####[place] [address] [place] Eosinophils/100 WBC (Bld)1.8 %Normal.The [facility] Physician GroupComment on above:Performed By: #### BMP, CBC ####[facility] [address] [place] [address] USAErythrocyte distribution width (RBC) [Ratio]15.4 % High12.0-14.8The [facility] Physician GroupComment on above:Performed By: #### BMP, CBC ####[place] [address] USAHematocrit (Bld) [Volume fraction]34.2 %Low38.8-50.0The [facility] Physician GroupComment on above:Performed By: #### BMP, CBC ####[place] [address] USAHemoglobin (Bld) [Mass/Vol]11.3 g/dL Low13.0-17.0The [facility] Physician GroupComment on above:Performed By: #### BMP, CBC ####[place] [address] USALymphocytes (Bld) [#/Vol]0.5 10*3/uLLow1.00-4.8The [facility] Physician Group Comment on above:Performed By: #### BMP, CBC ####[place] [address] USALymphocytes/100 WBC (Bld)11.2 %Normal. The [facility] Physician GroupComment on above:Performed By: #### BMP, CBC ####[place] [address] USAMCH (RBC) [Entitic mass]30.5 qaQxiokv33.5-35.2The [facility] Physician GroupComment on above:Performed By: #### BMP, CBC ####[place] [address] USAMCV (RBC) [Entitic vol]92.6 gHNiakmv86.5-101 The [facility] Physician GroupComment on above:Performed By: #### BMP, CBC ####[place] [address] USAMean Corpuscular HGB Conc32.9 g/pQZwsguy65.5-35.6The [facility] Physician GroupComment on above:Performed By: #### BMP, CBC ####[address] [address] USAMonocytes (Bld) [#/Vol]0.5 10*3/uLNormal 0.0-0.8The [facility] Physician GroupComment on above:Performed By: #### BMP, CBC ####[place] [address] [place] Monocytes/100 WBC (Bld)9.7 %Normal.The [facility] Physician GroupComment on above:Performed By: #### BMP, CBC ####[place] [address] USANeutrophils (Bld) [#/Vol]3.6 10*3/uLNormal1.8-7.7The [facility] Physician GroupComment on above:Performed By: #### BMP, CBC ####[place] [address] [place] Neutrophils/100 WBC (Bld)76.8 %Normal.The [facility] Physician GroupComment on above:Performed By: #### BMP, CBC ####[address] [address] USANRBC%0.2 /100{WBC}Normal0-0.5The [facility] Physician GroupComment on above:Performed By: #### BMP, CBC ####[place] [id number] USAPlatelet mean volume (Bld) [Entitic vol]7.3 fLNormal6.6-10.1The [facility] Physician GroupComment on above: Performed By: #### BMP, CBC ####[address] [address] USAPlatelets (Bld) [#/Vol]191 10*3/hSPmpkcy123-452Ucw [facility] Physician GroupComment on above:Performed By: #### BMP, CBC ####[place] [address] USARBC (Bld) [#/Vol]3.69 10*6/uLLow3.90-5.60The [facility] Physician GroupComment on above:Performed By: #### BMP, CBC ####[address] [address] USAWBC (Bld) [#/Vol]4.7 10*3/uLNormal4.1-10.5The [facility] Physician GroupComment on above:Performed By: #### BMP, CBC ####[address] [address] USAWhite Blood Count4.7 [CFU]/mLNormal4.1-10.5The [facility] Physician GroupComment on above:Performed By: #### BMP, CBC ####[address] [address] USAGlucose Poct Glucometerson 94-77-2079Iddzggr [Mass/Vol]139 mg/dLNoAdventHealth [facility]ville Physician [facility] HospitalComment on above:Result Comment: Random Glucose Reference Range is dependent on time and content of last meal. Glucose of more than 200 mg/dL in a nonstressed, ambulatory subject supports the diagnosis of Diabetes Mellitus.PERFORMED BY:[address] [place], [place] [phone] MEDICAL ELÍAS GERMAN M.D.Performed By: #### GLULS ####Point of Care testing, Glucose [Mass/Vol]85 mg/dLNoAdventHealth Hendersonville Physician GroupComment on above: Result Comment: Random Glucose Reference Range is dependent on time and content of last meal. Glucose of more than 200 mg/dL in a nonstressed, ambulatory subject supports the diagnosis of Diabetes Mellitus.PERFORMED BY:[address] [place], [place] [phone] MEDICAL ELÍAS GERMAN M.D.Performed By: #### GLULS ####Point of Care testing,Glucose [Mass/Vol]127 mg/dLNoAdventHealth [facility]ville Physician GroupComment on above:Result Comment: Random Glucose Reference Range is dependent on time and content of last meal. Glucose of more than 200 mg/dL in a nonstressed, ambulatory subject supports the diagnosis of Diabetes Mellitus.PERFORMED BY:[place] [address] [address] [place], [place] [phone] MEDICAL ELÍAS GERMAN M.D.Performed By: #### GLULS ####Point of Care testing,Glucose [Mass/Vol]168 mg/dLUF Health [facility]burg Hospital Physician [facility] HospitalComment on above:Result Comment: Random Glucose Reference Range is dependent on time and content of last meal. Glucose of more than 200 mg/dL in a nonstressed, ambulatory subject supports the diagnosis of Diabetes Mellitus.PERFORMED BY:[address] [address] [place] [place], [place] [phone] MEDICAL ELÍAS GERMAN M.D.Performed By: #### GLULS ####Point of Care testing,XR chest 1V portableon 81-36-3577QM chest 1V portableNoAdventHealth Hendersonville Physician [facility] HospitalAerobic Culture on [phone] CultureNoAdventHealth Hendersonville Physician H. [facility]. Watkins Memorial HospitalComment on above: Performed By: #### GS, AERC ####[address] [address] USAAnti-Xa UF Heparinon 60-48-1432Ftwl-Xa UF Heparin 0.28Ickahk4.30-0.70The [facility] Physician [facility] HospitalComment on above:Result Comment: Use the aPTT protocol when triglycerides are > 800 mg/dL, total bilirubin is > 20 mg/dL and/or patient has received a DOAC, Fondaparinux or LMWH within 72 hours AND baseline anti-Xa level is > 0.7 units/mLPERFORMED BY:[address] CANDELARIOJeremiSHAR, [place] [phone] MEDICAL ELÍAS GERMAN M.D.Performed By: #### UFHEP ####[address] [address] USAArterial Blood Gason 98-25-4678KIL Base Excess3.2 mmol/LHigh-3.0-3.0The [facility] Physician Group Comment on above:Performed By: #### ABG ####Point of Care testing,ABG Frac Inspired O265 %NormalThe [facility] Physician GroupComment on above:Performed By: #### ABG ####Point of Care testing,ABG Oxygen Content6.9 mmol/LNormal6.6-9.7The [facility] Physician GroupComment on above:Performed By: #### ABG ####Point of Care testing,ABG Oxygen Hzzxlnlira20.4 %Low95.0-100.0The [facility] Physician GroupComment on above:Performed By: #### ABG ####Point of Care testing,ABG PCO2 45.5 mm[Hg]High35.0-45.0The [facility] Physician GroupComment on above:Performed By: #### ABG ####Point of Care testing,ABG EOHR5IkzukrUob [facility] Physician GroupComment on above:Performed By: #### ABG ####Point of Care testing,ABG PH 7.56Orcgod6.35-7.45The [facility] Physician GroupComment on above:Performed By: #### ABG ####Point of Care testing,ABG PO270.1 mm[Hg]Low80.0-100.0The [facility] Physician GroupComment on above:Performed By: #### ABG ####Point of Care testing,ABG TV500 mLNormalThe [facility] Physician GroupComment on above: Performed By: #### ABG ####Point of Care testing,CO2 [Moles/Vol]29.7 mmol/LHigh 23.0-27.0The [facility] Physician GroupComment on above:Performed By: #### ABG ####Point of Care testing,HCO3 (Bld) [Moles/Vol]28.3 mmol/SVdfzja55.0-29.0The [facility] Physician GroupComment on above:Performed By: #### ABG ####Point of Care testing,Respiratory CriticalNormDeSoto Memorial Hospital Physician GroupComment on above:Result Comment: Critical Value called on: 2025 at 06:09PERFORMED BY:[address] [address] [address] DOMINGUEZNEW [place], [place] [phone] MEDICAL DIRECTORCELESTE GERMAN M.D.Performed By: #### ABG ####Point of Care testing,Set Respiratory Otxq84WbzythCyjUF Health [facility]burg Hospital Physician GroupComment on above:Performed By: #### ABG ####Point of Care testing,VBG Draw SiteRight RadialUF Health Leesburg Hospital Physician GroupComment on above:Performed By: #### ABG ####Point of Care testing,Ventilator ModeACNormal The [facility] Physician GroupComment on above:Performed By: #### ABG ####Point of Care testing,Basic Metabolic Panelon 99-45-8523Poskn gap [Moles/Vol]10.5 mmol/LNormal6.0-15.0The [facility] Physician GroupComment on above:Performed By: #### BMP, CBC ####[address] [address] USACalcium [Mass/Vol]8.5 mg/dLLow8.6-10.3The [facility] Physician Group Comment on above:Performed By: #### BMP, CBC ####[address] [address] USAChloride [Moles/Vol]107 mmol/LNormal 98-107The [facility] Physician GroupComment on above:Performed By: #### BMP, CBC ####[address] [address] USACO2 [Moles/Vol]27.9 mmol/LUbphsj98.0-31.0The [facility] Physician GroupComment on above:Performed By: #### BMP, CBC ####[address] [address] USACreatinine [Mass/Vol]1.11 mg/dLNormal0.70-1.30The [facility] Physician GroupComment on above:Performed By: #### BMP, CBC ####[address] [address] [place] Creatinine Clr Calc Thltuuyz19.60NormRegency Hospital Toledoe [facility] Physician GroupComment on above:Result Comment: PERFORMED BY:[address] [address] [address] [place], [place] [phone] MEDICAL DIRECTORCELESTE GERMAN M.D.Performed By: #### LISA, CBC ####[address] [address] USAGFR/1.73 sq M.predicted MDRD (S/P/Bld) [Vol rate/Area]mL/min/{1.73_m2}NormalThe [facility] Physician GroupComment on above: Performed By: #### LISA, CBC ####[address] [address] USAGlucose [Mass/Vol]88 mg/pFTcckax23-371Jxz [facility] Physician GroupComment on above:Result Comment: Random Glucose Reference Range is dependent on time and content of last meal. Glucose of more than 200 mg/dL in a nonstressed, ambulatory subject supports the diagnosis of Diabetes Mellitus. ADA recommended reference rangePerformed By: #### LISA, CBC ####[address] [address] USAPotassium [Moles/Vol] 3.4 mmol/LLow3.5-5.1The [facility] Physician GroupComment on above:Performed By: #### LISA, CBC ####[place] [id number] USASodium [Moles/Vol]142 mmol/DOuoyxj284-475Zuw [facility] Physician Group Comment on above:Performed By: #### LISA, CBC ####[address] [address] USAUrea nitrogen [Mass/Vol]34 mg/dLHigh 7-25The [facility] Physician GroupComment on above:Performed By: #### LISA, CBC ####[address] [id number] [facility] Complete Blood Count Auto Diffon 10-98-4399Smqfoofvk (Bld) [#/Vol]0.0 10*3/uL Normal0.0-0.2The [facility] Physician GroupComment on above:Result Comment: PERFORMED BY:[address] [phone] MEDICAL DIRECTORCELESTE GERMAN M.D.Performed By: #### BMP, CBC ####[address] [address] [phone] USABasophils/100 WBC (Bld)0.3 %Normal.The [facility] Physician GroupComment on above:Performed By: #### BMP, CBC ####[place] [address] USAEosinophils (Bld) [#/Vol]0.0 10*3/uLNormal 0.0-0.45The [facility] Physician GroupComment on above:Performed By: #### BMP, CBC ####[place] [address] [place] Eosinophils/100 WBC (Bld)0.6 %Normal.The [facility] Physician GroupComment on above:Performed By: #### BMP, CBC ####[place] [address] USAErythrocyte distribution width (RBC) [Ratio]15.8 % High12.0-14.8The [facility] Physician GroupComment on above:Performed By: #### BMP, CBC ####[place] [address] USAHematocrit (Bld) [Volume fraction]35.2 %Low38.8-50.0The [facility] Physician GroupComment on above:Performed By: #### BMP, CBC ####[phone] USAHemoglobin (Bld) [Mass/Vol]11.6 g/dL Low13.0-17.0The [facility] Physician GroupComment on above:Performed By: #### BMP, CBC ####[place] [id number] USALymphocytes (Bld) [#/Vol]0.4 10*3/uLLow1.00-4.8The [facility] Physician Group Comment on above:Performed By: #### BMP, CBC ####[address] [address] USALymphocytes/100 WBC (Bld)9.6 %Normal. The [facility] Physician GroupComment on above:Performed By: #### BMP, CBC ####[address]H (RBC) [Entitic mass]30.5 pzEeswwn56.5-35.2The [facility] Physician GroupComment on above:Performed By: #### BMP, CBC ####[address]V (RBC) [Entitic vol]92.2 pLMblpiu66.5-101 The [facility] Physician GroupComment on above:Performed By: #### BMP, CBC ####[place] [address] USAMean Corpuscular HGB Conc33.0 g/dWYgfycb60.5-35.6The [facility] Physician GroupComment on above:Performed By: #### BMP, CBC ####[place] [address] USAMonocytes (Bld) [#/Vol]0.5 10*3/uLNormal 0.0-0.8The [facility] Physician GroupComment on above:Performed By: #### BMP, CBC ####[place] [address] [place] Monocytes/100 WBC (Bld)11.2 %Normal.The [facility] Physician GroupComment on above:Performed By: #### BMP, CBC ####[place] [address] USANeutrophils (Bld) [#/Vol]3.4 10*3/uLNormal1.8-7.7The [facility] Physician GroupComment on above:Performed By: #### BMP, CBC ####[place] [address] [place] Neutrophils/100 WBC (Bld)78.3 %Normal.The [facility] Physician GroupComment on above:Performed By: #### BMP, CBC ####[address] [address] USANRBC%0.1 /100{WBC}Normal0-0.5The [facility] Physician GroupComment on above:Performed By: #### BMP, CBC ####[address] [address] USAPlatelet mean volume (Bld) [Entitic vol]7.2 fLNormal6.6-10.1The [facility] Physician GroupComment on above: Performed By: #### BMP, CBC ####[address] [address] USAPlatelets (Bld) [#/Vol]181 10*3/kPMzuunl099-395Hnn [facility] Physician GroupComment on above:Performed By: #### BMP, CBC ####[address] [address] USARBC (Bld) [#/Vol]3.82 10*6/uLLow3.90-5.60The [facility] Physician GroupComment on above:Performed By: #### BMP, CBC ####[address] [address] USAWBC (Bld) [#/Vol]4.3 10*3/uLNormal4.1-10.5The [facility] Physician GroupComment on above:Performed By: #### BMP, CBC ####[address] [address] USAWhite Blood Count4.3 [CFU]/mLNormal4.1-10.5The [facility] Physician GroupComment on above:Performed By: #### BMP, CBC ####[address] [address] USAECG 12 lead ECGon 62-84-0759HFE 12 lead ECGUF Health Leesburg Hospital Physician [facility] Memorial HospitalGlucose Poct Glucometerson 25-95-8210Efzubzm4Nrl0: Cleaned MeterNoAdventHealth Hendersonville Physician GroupComment on above:Result Comment: PERFORMED BY:[address] [place]AGASHAR, [place] [phone] MEDICAL DIRECTORCELESTE GERMAN M.D.Performed By: #### GLULS ####Point of Care testing,Glucose [Mass/Vol]126 mg/dLUF Health Leesburg Hospital Physician GroupComment on above:Result Comment: Random Glucose Reference Range is dependent on time and content of last meal. Glucose of more than 200 mg/dL in a nonstressed, ambulatory subject supports the diagnosis of Diabetes Mellitus.Performed By: #### GLULS ####Point of Care testing,Commemt1 Glu2: Cleaned MeterNoAdventHealth Hendersonville Physician GroupComment on above:Result Comment: PERFORMED BY:[facility] AVScarlettJeremiSHAR, [place] [phone] MEDICAL DIRECTORCELESTE GERMAN M.D.Performed By: #### GLULS ####Point of Care testing,Glucose [Mass/Vol]111 mg/dLNoAdventHealth Hendersonville Physician GroupComment on above:Result Comment: Random Glucose Reference Range is dependent on time and content of last meal. Glucose of more than 200 mg/dL in a nonstressed, ambulatory subject supports the diagnosis of Diabetes Mellitus.Performed By: #### GLULS ####Point of Care testing,Gram Stain on 65-73-4792Izmzxpgxzmk observation Gram stain Nom (Unsp spec)Gram Stain Result 3+ White Blood Cells 1+ Epithelial Cells 1+ Gram Positive Cocci PERFORMED BY: [facility] [address] [place] [address] PATHOLOGIST OUTSIDE DELIVERER CELESTE GERMAN M.D.NormalThe [facility] Physician GroupComment on above: Performed By: #### GS, AERC ####[facility] [place] [address] USATriglycerideson 28-65-8067Ycezrnfgtnly [Mass/Vol]109 mg/gXSqdmvm36-321Hbs [facility] Physician GroupComment on above:Result Comment: TRIG ATP III CLASSIFICATION TRIG less than 150 mg/dL Normal TRIG 150-199 mg/dL Borderline high TRIG 200-500 mg/dL High TRIG greater than 500 mg/dL Very high Standard traceable to the Center for Disease Conrtrol and Prevention (CDC) test method.PERFORMED BY:[address] [place], [place] [phone] MEDICAL ELÍAS GERMAN M.D.Performed By: #### TRIG ####[address] [address] USAXR chest 1V portableon 96-04-6297YJ chest 1V portableNormalThe [facility] Physician GroupAnti-Xa UF Heparinon 33-93-4797Xtmw-Xa UF Heparin0.35Normal 0.30-0.70The [facility] Physician [facility] HospitalComment on above:Result Comment: Use the aPTT protocol when triglycerides are > 800 mg/dL, total bilirubin is > 20 mg/dL and/or patient has received a DOAC, Fondaparinux or LMWH within 72 hours AND baseline anti-Xa level is > 0.7 units/mLPERFORMED BY:[address] [place], [place] [phone] MEDICAL ELÍAS GERMAN M.D.Performed By: #### UFHEP ####[address] [address] USAArterial Blood Gason 21-02-1288XIG Base Excess-0.6 mmol/LNormal-3.0-3.0The [facility] Physician Group Comment on above:Performed By: #### ABG ####Point of Care testing,ABG Frac Inspired O260 %NormalThe [facility] Physician GroupComment on above:Performed By: #### ABG ####Point of Care testing,ABG Oxygen Content6.7 mmol/LNormal6.6-9.7The [facility] Physician [facility] HospitalComment on above:Performed By: #### ABG ####Point of Care testing,ABG Oxygen Gmvkaumxrt62.9 %Low95.0-100.0The [facility] Physician GroupComment on above:Performed By: #### ABG ####Point of Care testing,ABG PCO2 47.1 mm[Hg]High35.0-45.0The [facility] Physician GroupComment on above:Performed By: #### ABG ####Point of Care testing,ABG KQTG5AkpugyTllAdventHealth Hendersonville Physician GroupComment on above:Performed By: #### ABG ####Point of Care testing,ABG PH 7.52Ljtbnd9.35-7.45The [facility] Physician GroupComment on above:Performed By: #### ABG ####Point of Care testing,ABG PO275.5 mm[Hg]Low80.0-100.0The [facility] Physician GroupComment on above:Performed By: #### ABG ####Point of Care testing,ABG TV500 mLNormalThe [facility] Physician GroupComment on above: Performed By: #### ABG ####Point of Care testing,CO2 [Moles/Vol]26.7 mmol/L Shkheh49.0-27.0The [facility] Physician GroupComment on above:Performed By: #### ABG ####Point of Care testing,HCO3 (Bld) [Moles/Vol]25.3 mmol/ZOlebew60.0-29.0 The [facility] Physician GroupComment on above:Performed By: #### ABG ####Point of Care testing,Respiratory CriticalUF Health Leesburg Hospital Physician GroupComment on above:Result Comment: Critical Value called on: 08/03/2025 at 04:44PERFORMED BY:[facility]IO DOMINGUEZNEW [place], [place] [phone] MEDICAL DIRECTORCELESTE GERMAN M.D.Performed By: #### ABG ####Point of Care testing,Set Respiratory Qpyj89HmhhccYyaAdventHealth Hendersonville Physician GroupComment on above:Performed By: #### ABG ####Point of Care testing,VBG Draw SiteRight RadialUF Health Leesburg Hospital Physician GroupComment on above:Performed By: #### ABG ####Point of Care testing,Ventilator ModeACNormal [facility] Physician GroupComment on above:Performed By: #### ABG ####Point of Care testing,Basic Metabolic Panelon 36-25-7153Ntlzs gap [Moles/Vol]7.9 mmol/LNormal6.0-15.0The [facility] Physician GroupComment on above:Performed By: #### CBC, BMP ####[address] [address] USACalcium [Mass/Vol]8.1 mg/dLLow8.6-10.3The [facility] Physician Group Comment on above:Performed By: #### CBC, BMP ####[address] [address] USAChloride [Moles/Vol]106 mmol/LNormal 98-107The [facility] Physician GroupComment on above:Performed By: #### CBC, BMP ####[address] [address] USACO2 [Moles/Vol]28.9 mmol/RWidjqs31.0-31.0The [facility] Physician GroupComment on above:Performed By: #### CBC, BMP ####[address] [address] USACreatinine [Mass/Vol]1.49 mg/dLHigh0.70-1.30The [facility] Physician GroupComment on above:Performed By: #### CBC, BMP ####[address] [address] [place] Creatinine Clr Calc Gvlqogwk06.84NormalThe [facility] Physician GroupComment on above:Result Comment: PERFORMED BY:[address] [place]LLYScarlettJeremiSH[place], [place] [phone] MEDICAL ELÍAS GERMAN M.D.Performed By: #### CBC, BMP ####[address] [address] USAGFR/1.73 sq M.predicted MDRD (S/P/Bld) [Vol rate/Area]51.439 mL/min/{1.73_m2}NormalThe [facility] Physician GroupComment on above:Performed By: #### CBC, BMP ####[address] [address] USAGlucose [Mass/Vol]87 mg/sAIoixas52-213Xlh [facility] Physician GroupComment on above:Result Comment: Random Glucose Reference Range is dependent on time and content of last meal. Glucose of more than 200 mg/dL in a nonstressed, ambulatory subject supports the diagnosis of Diabetes Mellitus. ADA recommended reference rangePerformed By: #### CBC, BMP ####[address] [place] [address] USAPotassium [Moles/Vol] 3.8 mmol/LNormal3.5-5.1The [facility] Physician GroupComment on above:Performed By: #### CBC, BMP ####[address] [address] USASodium [Moles/Vol]139 mmol/ROljubo198-866Fuz [facility] Physician GroupComment on above:Performed By: #### CBC, BMP ####[address] [address] USAUrea nitrogen [Mass/Vol]50 mg/dLHigh 7-e [facility] Physician GroupComment on above:Performed By: #### CBC, BMP ####[place] [id number] [facility] Complete Blood Count Auto Diffon 75-55-8770Tnadrlqgr (Bld) [#/Vol]0.0 10*3/uL Normal0.0-0.2The [facility] Physician [facility] HospitalComment on above:Result Comment: PERFORMED BY:[address] [place]REELEAGUE [place], [place] [phone] MEDICAL DIRECTORCELESTE GERMAN M.D.Performed By: #### CBC, BMP ####[place] [phone] USABasophils/100 WBC (Bld)0.2 %Normal.The [facility] Physician GroupComment on above:Performed By: #### CBC, BMP ####[address] [address] USAEosinophils (Bld) [#/Vol]0.0 10*3/uLNormal 0.0-0.45The [facility] Physician [facility] HospitalComment on above:Performed By: #### CBC, BMP ####[address] [address] [place] Eosinophils/100 WBC (Bld)0.4 %Normal.The [facility] Physician GroupComment on above:Performed By: #### CBC, BMP ####[place] [id number] USAErythrocyte distribution width (RBC) [Ratio]15.4 % High12.0-14.8The [facility] Physician GroupComment on above:Performed By: #### CBC, BMP ####[place] [phone] USAHematocrit (Bld) [Volume fraction]31.4 %Low38.8-50.0The [facility] Physician GroupComment on above:Performed By: #### CBC, BMP ####[place] [phone] USAHemoglobin (Bld) [Mass/Vol]10.4 g/dL Low13.0-17.0The [facility] Physician GroupComment on above:Performed By: #### CBC, BMP ####[place] [phone] USALymphocytes (Bld) [#/Vol]0.4 10*3/uLLow1.00-4.8The [facility] Physician Group Comment on above:Performed By: #### CBC, BMP ####[place] [phone] USALymphocytes/100 WBC (Bld)7.5 %Normal. The [facility] Physician GroupComment on above:Performed By: #### CBC, BMP ####[place] [id number] USAMCH (RBC) [Entitic mass]31.1 wuCtxmam04.5-35.2The [facility] Physician GroupComment on above:Performed By: #### CBC, BMP ####[place] [id number] USAMCV (RBC) [Entitic vol]93.6 jDZonzoz90.5-101 The [facility] Physician GroupComment on above:Performed By: #### CBC, BMP ####[place] [id number] USAMean Corpuscular HGB Conc33.2 g/wHBuioku76.5-35.6The [facility] Physician GroupComment on above:Performed By: #### CBC, BMP ####[place] [address] USAMonocytes (Bld) [#/Vol]0.6 10*3/uLNormal 0.0-0.8The [facility] Physician GroupComment on above:Performed By: #### CBC, BMP ####[place] [address] [place] Monocytes/100 WBC (Bld)12.5 %Normal.The [facility] Physician GroupComment on above:Performed By: #### CBC, BMP ####[place] [address] USANeutrophils (Bld) [#/Vol]4.0 10*3/uLNormal1.8-7.7The [facility] Physician GroupComment on above:Performed By: #### CBC, BMP ####[place] [address] [place] Neutrophils/100 WBC (Bld)79.4 %Normal.The [facility] Physician GroupComment on above:Performed By: #### CBC, BMP ####[place] [address] USANRBC%0.2 /100{WBC}Normal0-0.5The [facility] Physician GroupComment on above:Performed By: #### CBC, BMP ####[place] [id number] USAPlatelet mean volume (Bld) [Entitic vol]7.7 fLNormal6.6-10.1The [facility] Physician GroupComment on above: Performed By: #### CBC, BMP ####[place] [address] USAPlatelets (Bld) [#/Vol]180 10*3/zHEuodxs085-076Pam [facility] Physician [facility] HospitalComment on above:Performed By: #### CBC, BMP ####[address] [address] USARBC (Bld) [#/Vol]3.36 10*6/uLLow3.90-5.60The [facility] Physician [facility] HospitalComment on above:Performed By: #### CBC, BMP ####[place] [id number] USAWBC (Bld) [#/Vol]5.1 10*3/uLNormal4.1-10.5The [facility] Physician [facility] HospitalComment on above:Performed By: #### CBC, BMP ####[place] [id number] USAWhite Blood Count5.1 [CFU]/mLNormal4.1-10.5The [facility] Physician [facility] HospitalComment on above:Performed By: #### CBC, BMP ####[place] [id number] USAXR chest 1V portableon 47-13-6777DO chest 1V portableNormalThe [facility] Physician GroupAnti-Xa UF Heparinon 81-27-9884Pxhu- Xa UF Heparin0.42Xygrva7.30-0.70The [facility] Physician [facility] HospitalComment on above: Result Comment: Use the aPTT protocol when triglycerides are > 800 mg/dL, total bilirubin is > 20 mg/dL and/or patient has received a DOAC, Fondaparinux or LMWH within 72 hours AND baseline anti-Xa level is > 0.7 units/mLPERFORMED BY:[address] [place]LLYRAVINDERCODY, [place] [phone] MEDICAL DIRECTORCELESTE GERMAN M.D.Performed By: #### UFHEP ####[address] [address] USAAnti-Xa UF Heparin0.92Mcifnu8.30-0.70The [facility] Physician [facility] HospitalComment on above:Result Comment: Use the aPTT protocol when triglycerides are > 800 mg/dL, total bilirubin is > 20 mg/dL and/or patient has received a DOAC, Fondaparinux or LMWH within 72 hours AND baseline anti-Xa level is > 0.7 units/mLPERFORMED BY:[facility] DOMINGUEZNEW [place], [place] [phone] MEDICAL DIRECTORCELESTE GERMAN M.D.Performed By: #### UFHEP ####[facility] [place] [address] USAArterial Blood Gason 48-14-4734VVP Base Excess-5.8 mmol/LLow-3.0-3.0The [facility] Physician GroupComment on above:Performed By: #### ABG ####Point of Care testing,ABG Frac Inspired O265 %NormalThe [facility] Physician GroupComment on above:Performed By: #### ABG ####Point of Care testing,ABG Oxygen Content7.0 mmol/LNormal6.6-9.7The [facility] Physician GroupComment on above:Performed By: #### ABG ####Point of Care testing,ABG Oxygen Smjyecxlhd30.5 %Xscbdc06.0-100.0 The [facility] Physician GroupComment on above:Performed By: #### ABG ####Point of Care testing,ABG MZH912.8 mm[Hg]Zmppzv89.0-45.0The [facility] Physician [facility] Comment on above:Performed By: #### ABG ####Point of Care testing,ABG PEEP5 NormalThe [facility] Physician GroupComment on above:Performed By: #### ABG ####Point of Care testing,ABG PH7.34Low7.35-7.45The [facility] Physician [facility] Comment on above:Performed By: #### ABG ####Point of Care testing,ABG PO287.9 mm[Hg]Ywlieo33.0-100.0The [facility] Physician GroupComment on above:Performed By: #### ABG ####Point of Care testing,ABG TV500 mLNormalThe [facility] Physician GroupComment on above:Performed By: #### ABG ####Point of Care testing,CO2 [Moles/Vol]20.5 mmol/LLow23.0-27.0The [facility] Physician GroupComment on above: Performed By: #### ABG ####Point of Care testing,HCO3 (Bld) [Moles/Vol]19.4 mmol/LLow23.0-29.0The [facility] Physician GroupComment on above:Performed By: #### ABG ####Point of Care testing,Respiratory CriticalUF Health Leesburg Hospital Physician GroupComment on above:Result Comment: Critical Value called on: 08/02/2025 at 04:17PERFORMED BY:[address] [place], [place] [phone] MEDICAL DIRECTORCELESTE GERMAN M.D.Performed By: #### ABG ####Point of Care testing,Set Respiratory Rate16 NormalHca Florida Osce[facility] Hospital Physician GroupComment on above:Performed By: #### ABG ####Point of Care testing,VBG Draw SiteLeft BrachialUF Health Leesburg Hospital Physician GroupComment on above:Performed By: #### ABG ####Point of Care testing,Ventilator ModeACUF Health Leesburg Hospital Physician GroupComment on above: Performed By: #### ABG ####Point of Care testing,Basic Metabolic Panelon 89-62-5937Uiwlo gap [Moles/Vol]12.0 mmol/LNormal6.0-15.0The [facility] Physician GroupComment on above:Performed By: #### BMP, CBC ####[place] [id number] USACalcium [Mass/Vol]8.6 mg/dLNormal 8.6-10.3The [facility] Physician GroupComment on above:Performed By: #### BMP, CBC ####[address] [address] [place] Chloride [Moles/Vol]100 mmol/URgfeia92-003Tqi [facility] Physician GroupComment on above:Performed By: #### BMP, CBC ####[address] [address] USACO2 [Moles/Vol]28.3 mmol/WAchdck35.0-31.0The [facility] Physician GroupComment on above:Performed By: #### BMP, CBC ####[address] [address] [place] Creatinine [Mass/Vol]2.27 mg/dLHigh0.70-1.30The [facility] Physician GroupComment on above:Performed By: #### BMP, CBC ####[address] [address] USACreatinine Clr Calc Jzzisycn66.41NormDeSoto Memorial Hospital Physician GroupComment on above:Result Comment: PERFORMED BY:[address] [place], [place] [phone] MEDICAL DIRECTORCELESTE GERMAN M.D.Performed By: #### BMP, CBC ####[address] [address] USAGFR/1.73 sq M.predicted MDRD (S/P/Bld) [Vol rate/Area]31.037 mL/min/{1.73_m2}NormalThe [facility] Physician [facility] HospitalComment on above:Performed By: #### BMP, CBC ####[address] [address] USAGlucose [Mass/Vol]96 mg/pWUfgect96-737Jyi [place] Physician [facility] HospitalComment on above: Result Comment: Random Glucose Reference Range is dependent on time and content of last meal. Glucose of more than 200 mg/dL in a nonstressed, ambulatory subject supports the diagnosis of Diabetes Mellitus. ADA recommended reference rangePerformed By: #### BMP, CBC ####[address] [address] USAPotassium [Moles/Vol]4.3 mmol/LNormal3.5-5.1The [facility] Physician GroupComment on above:Performed By: #### BMP, CBC ####[address] [address] USASodium [Moles/Vol]136 mmol/CImpygz504-424Cqa [facility] Physician GroupComment on above: Performed By: #### BMP, CBC ####[address] [address] USAUrea nitrogen [Mass/Vol]70 mg/dLHigh7-25The [facility] Physician GroupComment on above:Performed By: #### BMP, CBC ####[place] [id number] [facility] Complete Blood Count Auto Diffon 16-96-4331Iecfjzndo (Bld) [#/Vol]0.0 10*3/uL Normal0.0-0.2The [facility] Physician GroupComment on above:Result Comment: PERFORMED BY:[address] [place], [place] [phone] MEDICAL DIRECTORCELESTE GERMAN M.D.Performed By: #### BMP, CBC ####[place] [phone] USABasophils/100 WBC (Bld)0.1 %Normal.The [facility] Physician GroupComment on above:Performed By: #### BMP, CBC ####[address] [address] USAEosinophils (Bld) [#/Vol]0.0 10*3/uLNormal 0.0-0.45The [facility] Physician GroupComment on above:Performed By: #### BMP, CBC ####[place] [phone] [facility] Eosinophils/100 WBC (Bld)0.1 %Normal.The [facility] Physician GroupComment on above:Performed By: #### BMP, CBC ####[address] [address] USAErythrocyte distribution width (RBC) [Ratio]15.4 % High12.0-14.8The [facility] Physician GroupComment on above:Performed By: #### BMP, CBC ####[place] [phone] USAHematocrit (Bld) [Volume fraction]36.1 %Low38.8-50.0The [facility] Physician GroupComment on above:Performed By: #### BMP, CBC ####[place] [address] USAHemoglobin (Bld) [Mass/Vol]11.7 g/dL Low13.0-17.0The [facility] Physician GroupComment on above:Performed By: #### BMP, CBC ####[place] [address] USALymphocytes (Bld) [#/Vol]0.4 10*3/uLLow1.00-4.8The [facility] Comment on above:Performed By: #### BMP, CBC ####[place] [phone] USALymphocytes/100 WBC (Bld)6.9 %Normal. The [facility] Physician GroupComment on above:Performed By: #### BMP, CBC ####[place] [phone] [facility]ENTERMCH (RBC) [Entitic mass]30.3 vlMqvlgw46.5-35.2The [facility] Physician GroupComment on above:Performed By: #### BMP, CBC ####[place] [phone] [facility]ENTERMCV (RBC) [Entitic vol]93.6 eOIiwtno02.5-101 The [facility] Physician GroupComment on above:Performed By: #### BMP, CBC ####[place] [phone] USAMean Corpuscular HGB Conc32.3 g/dLLow32.5-35.6The [facility] Physician GroupComment on above:Performed By: #### BMP, CBC ####[place] [phone] USAMonocytes (Bld) [#/Vol]0.7 10*3/uLNormal0.0-0.8The [facility] Physician GroupComment on above:Performed By: #### BMP, CBC ####[place] [phone] [place] Monocytes/100 WBC (Bld)11.9 %Normal.The [facility] Physician GroupComment on above:Performed By: #### BMP, CBC ####[place] [address] USANeutrophils (Bld) [#/Vol]4.9 10*3/uLNormal1.8-7.7The [facility] Physician GroupComment on above:Performed By: #### BMP, CBC ####[place] [address] [place] Neutrophils/100 WBC (Bld)81.0 %Normal.The [facility] Physician GroupComment on above:Performed By: #### BMP, CBC ####[place] [address] USANRBC%0.1 /100{WBC}Normal0-0.5The [facility] Physician GroupComment on above:Performed By: #### BMP, CBC ####[place] [address] USAPlatelet mean volume (Bld) [Entitic vol]7.8 fLNormal6.6-10.1The [facility] Physician GroupComment on above: Performed By: #### BMP, CBC ####[place] [address] USAPlatelets (Bld) [#/Vol]188 10*3/zDOglhff074-842Uvm [facility] Physician GroupComment on above:Performed By: #### BMP, CBC ####[place] [address] USARBC (Bld) [#/Vol]3.86 10*6/uLLow3.90-5.60The [facility] Physician GroupComment on above:Performed By: #### BMP, CBC ####[place] [address] USAWBC (Bld) [#/Vol]6.1 10*3/uLNormal4.1-10.5The [facility] Physician GroupComment on above:Performed By: #### BMP, CBC ####[address] [place] [address] [facility]ENTERWhite Blood Count6.1 [CFU]/mLNormal4.1-10.5The [facility] Physician [facility] HospitalComment on above:Performed By: #### BMP, CBC ####[address] [address] USAECH echo transthoracicon 89-50-3864TYE echo transthoracicNormDeSoto Memorial Hospital Physician [facility] HospitalXR chest 1V portableon 19-80-0857CI chest 1V portableNoBethesda North HospitalAnti-Xa UF Heparinon 63-64-2914Sgvx-Xa UF Heparin0.21Low0.30-0.70The Jefferson HealthComment on above:Result Comment: Use the aPTT protocol when triglycerides are > 800 mg/dL, total bilirubin is > 20 mg/dL and/or patient has received a DOAC, Fondaparinux or LMWH within 72 hours AND baseline anti-Xa level is > 0.7 units/mLPERFORMED BY:[address] [place], [place] [phone] MEDICAL ELÍAS GERMAN M.D.Performed By: #### UFHEP ####[address] [address] USAAnti-Xa UF Heparin0.20Low0.30-0.70The [facility] Physician [facility] HospitalComment on above:Result Comment: Use the aPTT protocol when triglycerides are > 800 mg/dL, total bilirubin is > 20 mg/dL and/or patient has received a DOAC, Fondaparinux or LMWH within 72 hours AND baseline anti-Xa level is > 0.7 units/mLPERFORMED BY:[address] [place], [place] [phone] MEDICAL ELÍAS GERMAN M.D.Performed By: #### UFHEP ####[address] [address] USAAnti-Xa UF Heparin0.05Low0.30-0.70The [facility] Physician GroupComment on above:Result Comment: Use the aPTT protocol when triglycerides are > 800 mg/dL, total bilirubin is > 20 mg/dL and/or patient has received a DOAC, Fondaparinux or LMWH within 72 hours AND baseline anti-Xa level is > 0.7 units/mLPERFORMED BY:[facility] [place], [place] [phone] MEDICAL DIRECTORCELESTE GERMAN M.D.Performed By: #### UFHEP ####[facility] [place] [address] USAArterial Blood Gason 77-79-0534KJN Base Excess-6.6 mmol/LLow-3.0-3.0The [facility] Physician GroupComment on above:Performed By: #### ABG ####Point of Care testing,ABG Frac Inspired O245 %NormalThe [facility] Physician GroupComment on above:Performed By: #### ABG ####Point of Care testing,ABG Oxygen Content7.6 mmol/LNormal6.6-9.7The [facility] Physician GroupComment on above:Performed By: #### ABG ####Point of Care testing,ABG Oxygen Sirnuzhzpo55.6 %Wecesh25.0-100.0 The [facility] Physician GroupComment on above:Performed By: #### ABG ####Point of Care testing,ABG BMK744.5 mm[Hg]Xwttft14.0-45.0The [facility] Physician [facility] Comment on above:Performed By: #### ABG ####Point of Care testing,ABG PEEP5 NormalThe [facility] Physician GroupComment on above:Performed By: #### ABG ####Point of Care testing,ABG PH7.30Low7.35-7.45The [facility] Physician [facility] Comment on above:Performed By: #### ABG ####Point of Care testing,ABG PO288.3 mm[Hg]Dbyeec91.0-100.0The [facility] Physician GroupComment on above:Performed By: #### ABG ####Point of Care testing,ABG TV500 mLNormalThe [facility] Physician GroupComment on above:Performed By: #### ABG ####Point of Care testing,CO2 [Moles/Vol]20.6 mmol/LLow23.0-27.0The [facility] Physician GroupComment on above: Performed By: #### ABG ####Point of Care testing,HCO3 (Bld) [Moles/Vol]19.4 mmol/LLow23.0-29.0The [facility] Physician GroupComment on above:Performed By: #### ABG ####Point of Care testing,Respiratory CriticalUF Health Leesburg Hospital Physician GroupComment on above:Result Comment: Critical Value called on: 08/01/2025 at 05:05PERFORMED BY:[address] [place], [place] [phone] MEDICAL ELÍAS GERMAN M.D.Performed By: #### ABG ####Point of Care testing,Set Respiratory Rate16 NormalThe [facility] Physician GroupComment on above:Performed By: #### ABG ####Point of Care testing,VBG Draw SiteRight BrachialNoAdventHealth Hendersonville Physician GroupComment on above:Performed By: #### ABG ####Point of Care testing,Ventilator ModeACUF Health Leesburg Hospital Physician GroupComment on above: Performed By: #### ABG ####Point of Care testing,B-Type Natriuretic Peptideon 05-57-8553Qjuettelptz peptide B (Bld) [Mass/Vol]440.0 pg/mLHigh5-100The [facility] Physician GroupComment on above:Result Comment: PERFORMED BY:[address] [place]ZNEW [place], [place] [phone] MEDICAL ELÍAS GERMAN M.D.Performed By: #### BNP, [id number], LIPID, PT, BMP, LACTIC, CBC, PTT ####[address] [place] [address] USABasic Metabolic Panelon 06-30-4100Igioj gap [Moles/Vol]11.8 mmol/LNormal6.0-15.0The [facility] Physician GroupComment on above:Order Comment: FASTING YPerformed By: #### BNP, [id number], LIPID, PT, BMP, LACTIC, CBC, PTT ####[place] [address] [place] [address] USACalcium [Mass/Vol]8.0 mg/dLLow8.6-10.3The [facility] Physician Group Comment on above:Order Comment: FASTING YPerformed By: #### BNP, [id number], LIPID, PT, BMP, LACTIC, CBC, PTT ####[address] [address] USAChloride [Moles/Vol]99 mmol/FDoywjr80-843Uxf [facility] Physician GroupComment on above:Order Comment: FASTING YPerformed By: #### BNP, [id number], LIPID, PT, BMP, LACTIC, CBC, PTT ####[address] [address] USACO2 [Moles/Vol]27.6 mmol/L Jmhnsq11.0-31.0The [facility] Physician GroupComment on above:Order Comment: FASTING YPerformed By: #### BNP, [id number], LIPID, PT, BMP, LACTIC, CBC, PTT ####[address] [address] [place] Creatinine [Mass/Vol]2.82 mg/dLHigh0.70-1.30The [facility] Physician GroupComment on above:Order Comment: FASTING YPerformed By: #### BNP, [id number], LIPID, PT, BMP, LACTIC, CBC, PTT ####[address] [address] USACreatinine Clr Calc Lcwmxvhq97.70NormalThe [facility] Physician GroupComment on above:Order Comment: FASTING YPerformed By: #### BNP, [id number], LIPID, PT, BMP, LACTIC, CBC, PTT ####[facility] [address] [place] [address] USAGFR/1.73 sq M.predicted MDRD (S/P/Bld) [Vol rate/Area]23.923 mL/min/{1.73_m2}NormalThe [facility] Physician GroupComment on above:Order Comment: FASTING YPerformed By: #### BNP, [id number], LIPID, PT, BMP, LACTIC, CBC, PTT ####[address] [address] USAGlucose [Mass/Vol]95 mg/vHJpouib44-602Xmu [facility] Physician GroupComment on above:Order Comment: FASTING YResult Comment: Random Glucose Reference Range is dependent on time and content of last meal. Glucose of more than 200 mg/dL in a nonstressed, ambulatory subject supports the diagnosis of Diabetes Mellitus. ADA recommended reference rangePerformed By: #### BNP, [id number], LIPID, PT, BMP, LACTIC, CBC, PTT ####[address] [address] USAPotassium [Moles/Vol]4.4 mmol/LNormal3.5-5.1The [facility] Physician GroupComment on above:Order Comment: FASTING YPerformed By: #### BNP, [id number], LIPID, PT, BMP, LACTIC, CBC, PTT ####[place] [id number] USASodium [Moles/Vol]134 mmol/RNfh349-922Svk [facility] Physician GroupComment on above: Order Comment: FASTING YPerformed By: #### BNP, [id number], LIPID, PT, BMP, LACTIC, CBC, PTT ####[address] [address] USAUrea nitrogen [Mass/Vol]77 mg/dLHigh7-25The [facility]ician Group Comment on above:Order Comment: FASTING YPerformed By: #### BNP, [id number], LIPID, PT, BMP, LACTIC, CBC, PTT ####[address] [address] USAComplete Blood Count Auto Diffon 90-23-8145Jmecmxpai (Bld) [#/Vol]0.0 10*3/uLNormal0.0-0.2The [facility] Physician GroupComment on above:Result Comment: PERFORMED BY:[address] [place], [place] [phone] MEDICAL DIRECTORCELESTE GERMAN M.D.Performed By: #### BNP, [id number], LIPID, PT, BMP, LACTIC, CBC, PTT ####[address] Basophils/100 WBC (Bld)0.1 %Normal.The [facility] Physician GroupComment on above:Performed By: #### BNP, [id number], LIPID, PT, BMP, LACTIC, CBC, PTT ####[address] Eosinophils (Bld) [#/Vol]0.0 10*3/uLNormal0.0-0.45The [facility] Comment on above:Performed By: #### BNP, [id number], LIPID, PT, BMP, LACTIC, CBC, PTT ####[address] Eosinophils/100 WBC (Bld)0.0 %Normal.The [facility] Physician GroupComment on above:Performed By: #### BNP, [id number], LIPID, PT, BMP, LACTIC, CBC, PTT ####[address] Erythrocyte distribution width (RBC) [Ratio]15.8 %High12.0-14.8The [facility] Physician GroupComment on above:Performed By: #### BNP, [id number], LIPID, PT, BMP, LACTIC, CBC, PTT ####[place] [address] USAHematocrit (Bld) [Volume fraction]37.9 %Low38.8-50.0 The [facility] Physician GroupComment on above:Performed By: #### BNP, [id number], LIPID, PT, BMP, LACTIC, CBC, PTT ####[place] [address] USAHemoglobin (Bld) [Mass/Vol]12.5 g/dLLow13.0-17.0The [facility] Physician GroupComment on above:Performed By: #### BNP, [id number], LIPID, PT, BMP, LACTIC, CBC, PTT ####[place] [address] USALymphocytes (Bld) [#/Vol]0.4 10*3/uLLow1.00-4.8The [facility] Physician GroupComment on above:Performed By: #### BNP, [id number], LIPID, PT, BMP, LACTIC, CBC, PTT ####[place] [address] USALymphocytes/100 WBC (Bld)9.8 %Normal.The [facility] Physician GroupComment on above:Performed By: #### BNP, [id number], LIPID, PT, BMP, LACTIC, CBC, PTT ####[address] (RBC) [Entitic mass]30.7 kdZmlxey56.5-35.2The [facility] Physician GroupComment on above:Performed By: #### BNP, [id number], LIPID, PT, BMP, LACTIC, CBC, PTT ####[address]V (RBC) [Entitic vol]93.1 lGUvwzvy71.5-101The [facility] Physician GroupComment on above:Performed By: #### BNP, [id number], LIPID, PT, BMP, LACTIC, CBC, PTT ####[place] [address] USAMean Corpuscular HGB Conc32.9 g/nPLtftah37.5-35.6The [facility] Physician GroupComment on above:Performed By: #### BNP, [id number], LIPID, PT, BMP, LACTIC, CBC, PTT ####[place] [address] USAMonocytes (Bld) [#/Vol]0.3 10*3/uLNormal0.0-0.8The [facility] Physician GroupComment on above:Performed By: #### BNP, [id number], LIPID, PT, BMP, LACTIC, CBC, PTT ####[place] [phone] USAMonocytes/100 WBC (Bld)7.7 %Normal.The [facility] Physician GroupComment on above:Performed By: #### BNP, [id number], LIPID, PT, BMP, LACTIC, CBC, PTT ####[place] [address] USANeutrophils (Bld) [#/Vol]3.6 10*3/uLNormal1.8-7.7The [facility] Physician GroupComment on above:Performed By: #### BNP, [id number], LIPID, PT, BMP, LACTIC, CBC, PTT ####[place] [address] USANeutrophils/100 WBC (Bld)82.4 %Normal.The [facility] Physician GroupComment on above:Performed By: #### BNP, [id number], LIPID, PT, BMP, LACTIC, CBC, PTT ####[place] [address] USANRBC%0.0 /100{WBC}Normal0-0.5The [facility] Physician GroupComment on above:Performed By: #### BNP, [id number], LIPID, PT, BMP, LACTIC, CBC, PTT ####[place] [address] USAPlatelet mean volume (Bld) [Entitic vol]7.8 fLNormal6.6-10.1The [facility] Physician GroupComment on above:Performed By: #### BNP, [id number], LIPID, PT, BMP, LACTIC, CBC, PTT ####[place] [address] USAPlatelets (Bld) [#/Vol]194 10*3/xUBeqjnp962-046Igf [facility] Physician GroupComment on above:Performed By: #### BNP, [id number], LIPID, PT, BMP, LACTIC, CBC, PTT ####[place] [id number] USARBC (Bld) [#/Vol]4.07 10*6/uLNormal3.90-5.60The [facility] Physician GroupComment on above:Performed By: #### BNP, [id number], LIPID, PT, BMP, LACTIC, CBC, PTT ####[address] [address] USAWBC (Bld) [#/Vol]4.4 10*3/uLNormal4.1-10.5The [facility] Physician GroupComment on above:Performed By: #### BNP, [id number], LIPID, PT, BMP, LACTIC, CBC, PTT ####[place] [id number] USAWhite Blood Count4.4 [CFU]/mLNormal4.1-10.5The [facility] Physician GroupComment on above:Performed By: #### BNP, [id number], LIPID, PT, BMP, LACTIC, CBC, PTT ####[address] [address] USACreatine Kinaseon 84-74-3731YT [Catalytic activity/Vol]61 U/IVpedgq06-589Ici [facility] Physician GroupComment on above: Performed By: #### HS TROP, CK ####[address] [address] USACK [Catalytic activity/Vol]80 U/DNzdihp38-158Idq [facility] Physician GroupComment on above:Performed By: #### CK, HS TROP ####[address] [address] USACK [Catalytic activity/Vol]103 U/WBivcrt09-859Rla [facility] Physician GroupComment on above:Performed By: #### HS TROP, CK ####[address] [address] USACK [Catalytic activity/Vol]121 U/XFsqhmr91-266 The [facility] Physician GroupComment on above:Performed By: #### CK, HS TROP ####[place] [id number] USAECG 12 lead ECGon 42-92-9317NFB 12 lead ECGUF Health Leesburg Hospital Physician [facility] HospitalGlucose Poct Glucometerson 89-33-3517Awppupv8Ueg4: Cleaned MeterNoAdventHealth Hendersonville Physician [facility] HospitalComment on above:Result Comment: PERFORMED BY:[address] [place], [place] [phone] MEDICAL DIRECTORCELESTE GERMAN M.D.Performed By: #### GLULS ####Point of Care testing, Glucose [Mass/Vol]87 mg/dLNoAdventHealth Hendersonville Physician GroupComment on above: Result Comment: Random Glucose Reference Range is dependent on time and content of last meal. Glucose of more than 200 mg/dL in a nonstressed, ambulatory subject supports the diagnosis of Diabetes Mellitus.Performed By: #### GLULS ####Point of Care testing,Lactic Acidon 93-67-9731Lrfaokx [Moles/Vol]1.6 mmol/L Normal0.5-1.9The [facility] Physician GroupComment on above:Result Comment: Lactic Acid reference range has been updated to 0.5 ? 1.9 mmol/L and the critical range of 2.0 or greater.PERFORMED BY:[address] [place], [place] [phone] MEDICAL ELÍAS GERMAN M.D.Performed By: #### BNP, [id number], LIPID, PT, BMP, LACTIC, CBC, PTT ####[facility] [id number] [place] [address] USALactic Acid Reflexon 61-57-2409Cdkqht Acid Reflex2.3 mmol/LOff scale high0.5-1.9The [facility] Physician GroupComment on above:Result Comment: Critical Result : Called to and read back by: IDANIA OCHOA at: 08/01/2025 00:53:29 by:[id number] Lactic Acid reference range has been updated to 0.5 ? 1.9 mmol/L and the critical range of 2.0or greater.PERFORMED BY:[address] LIZARRAGAFERNEY, [place] [phone] MEDICAL ELÍAS GERMAN M.D.Performed By: #### LACTIC RFX ####[address] [address]BRWCylzc Panelon 98-49-3338Bgdofdklqug [Mass/Vol]111 mg/lNIkk776-628Tpy [facility] Comment on above:Order Comment: FASTING YResult Comment: Chol less than 200 mg/dl low risk Chol 201-239 mg/dl borderline risk Chol 240 mg/dland greater high riskPerformed By: #### BNP, [id number], LIPID, PT, BMP, LACTIC, CBC, PTT ####[place] [id number] [facility] Cholesterol in HDL [Mass/Vol]38 mg/bYUolqxl10-45Jum [facility] Comment on above:Order Comment: FASTING YResult Comment: HDL CHOL ATP-III CLASSIFICATION Cardiovascular Risk HDL > or equal to 60 mg/dL LOW HDL < 40 mg/dL HIGHPerformed By: #### BNP, [id number], LIPID, PT, BMP, LACTIC, CBC, PTT ####[address] [address] [facility] Cholesterol.total/Cholesterol in HDL [Mass ratio]2.9 {ratio}Normal<5.0The [facility] Physician GroupComment on above:Order Comment: FASTING YPerformed By: #### BNP, [id number], LIPID, PT, BMP, LACTIC, CBC, PTT ####[address] [address] USALDL Cholesterol,Xeeswrvshm53 mg/dLNormal0-100The [facility] Physician GroupComment on above:Order Comment: FASTING YResult Comment: LDL ATP III CLASSIFICATION LDL less than 100 mg/dL Optimal LDL 100-129 mg/dL Near or above optimal LDL 130-159 mg/dL Borderline high LDL 160-189 mg/dL High LDL greater than 189 mg/dL Very highPerformed By: #### BNP, [id number], LIPID, PT, BMP, LACTIC, CBC, PTT ####[address] [address] USATriglyceride w/Urwbza592 mg/dL High0-149The [facility] Physician GroupComment on above:Order Comment: FASTING Y Result Comment: TRIG ATP III CLASSIFICATION TRIG less than 150 mg/dL Normal TRIG 150-199 mg/dL Borderline high TRIG 200-500 mg/dL High TRIG greater than 500 mg/dL Very high Standard traceable to the Center for Disease Conrtrol and Prevention (CDC) test method.Performed By: #### BNP, [id number], LIPID, PT, BMP, LACTIC, CBC, PTT ####[place] [address] [place] [address] USAVLDL PGNOHUAYQKX87 mg/dLNormDeSoto Memorial Hospital Physician GroupComment on above:Order Comment: FASTING YPerformed By: #### BNP, [id number], LIPID, PT, BMP, LACTIC, CBC, PTT ####[place] [address] [place] [address] [facility]Partial Thromboplastin Timeon 85-51-6129uHDL Coag (Bld) [Time]34.1 s Mbdykt99.1-36.5The [facility] Physician GroupComment on above:Result Comment: A hematocrit value greater than 55% may lead to inaccurate results in coagulation testing. Patients having hematocrit values >55% require a special collection tube for coagulation studies. Please contact the laboratory at [phone] for redraw instructions.PERFORMED BY:[place] [address] [address] NELLYScarlettJeremiSHAR, [place] [phone] MEDICAL ELÍAS GERMAN M.D.Performed By: #### BNP, [id number], LIPID, PT, BMP, LACTIC, CBC, PTT ####[place] [address] [place] [address] [facility] Prothrombin Time INRon 25-10-3411FFD Coag (PPP) [Relative time]1.0 {INR}Normal The [facility] Physician GroupComment on above:Result Comment: INR Therapeutic [...] 3 - 4.5 Performed By: #### BNP, [id number], LIPID, PT, BMP, LACTIC, CBC, PTT ####[facility] [place] [address] USAPT Coag (PPP) [Time]11.5 sNormal9.0-12.9The [facility] Physician GroupComment on above: Result Comment: A hematocrit value greater than 55% may lead to inaccurate results in coagulation testing. Patients having hematocrit values >55% require a special collection tube for coagulation studies. Please contact the laboratory at [phone] for redraw instructions.Performed By: #### BNP, [id number], LIPID, PT, BMP, LACTIC, CBC, PTT ####[facility] [place] [address] USAThyroid Antibodies TPO+Tg Abon 08-01-2025 Antithyroglobulin Ab404.8Ofnvuf2.0-0.9The [facility] Physician [facility] HospitalComment on above:Result Comment: Thyroglobulin Antibody measured by Edgar Ubaldo Methodology It should be noted that the presence of thyroglobulin antibodies may not be pathogenic nor diagnostic, especially at very low levels. The assay brake repairer has found that four percent of individuals without evidence of t hyroid disease or autoimmunity will have positive TgAb levels up to 4 IU/mL. Performed at: [facility] [address] [id number] Hris Administrator: Sidney Osman PhD, Phone: [phone] BY:[address] NELLYScarlettJeremiFERNEY, [place] [phone] MEDICAL DIRECTORCELESTE GERMAN M.D.Performed By: #### THY AB ####[facility] ,Thyroid Peroxidase Qxbhhpkhfc83Ahnzoi4-99Aib [facility] Physician GroupComment on above:Performed By: #### THY AB ####[facility] , Treponema pallidum Ab(FTA-ABS)on 70-41-0900Skchpaxui pallidum Ab(FTA-ABS) Non-ReactiveNormalNon ReactiveThe [facility] Physician GroupComment on above: Result Comment: Performed at: - [facility] [address], [place], [place] [id number] Hris Administrator: Sidney Osman PhD, Phone: [phone] BY:[place] [address] [place], [place] [phone] MEDICAL ELÍAS GERMAN M.D.Performed By: #### VITB1, FTA ####[facility] ,Troponin I High Sensitivityon 68-72-3836Sfiniljr I High Azyhvrenpof7510Gak scale [facility] Physician GroupComment on above:Result Comment: Critical Result : Called to and read back by: MANAN CHEEK at: 08/01/2025 21:08:16 by:[email or web address] The Troponin units of report have been changed to meet the Chest Pain Accreditation req uirement, element EC5.M1l2. Troponin units are changed from pg/ml to ng/L. Also, the decimal is removed and results are in whole numbers.PERFORMED BY:[address] ABREUCHICOPEE, [place] [phone] MEDICAL ELÍAS GERMAN M.D.Performed By: #### HS TROP, CK ####[place] [address] [place] [address] [facility] Troponin I High Dxdjbbxvhqm8272Mmd scale [facility] Comment on above:Result Comment: Critical Result : Called to and read back by: BEV SAUCEDA at: 08/01/2025 10:52:10 by:[id number] The Troponin units of report have been changed to meet the Chest Pain Accreditation requirement, element EC5.M1l2. Troponin units are changed from pg/ml to ng/L. Also, the decimal is removed and results are in whole numbers.PERFORMED BY:[address] [place], [place] [phone] MEDICAL ELÍAS GERMAN M.D.Performed By: #### CK, HS TROP ####[address] [place] [address] USATroponin I High Koobejsgioi4635Pyw scale high0-[address] [place] [address] Physician GroupComment on above: Result Comment: Critical Result : Called to and read back by: IDANIA OCHOA at: 08/01/2025 04:33:48 by:[id number] The Troponin units of report have been changed to meet the Chest Pain Accreditation requirement, element EC5.M1l2. Troponin units are changed from pg/ml to ng/L. Also, the decimal is removed andresults are in whole numbers.PERFORMED BY:[address]TAMIASHAR,[place] [phone] MEDICAL DIRECTORCELESTE GERMAN M.D.Performed By: #### HS TROP, CK ####[address] [address] USATroponin I High Xrxntdvwulg7463Sjv scale [facility]0-[facility] Physician [facility] HospitalComment on above:Result Comment: Critical Result : Called to and read back by: IDANIA OCHOA at: 08/01/2025 00:53:08 by:[id number] The Troponin units of report have been changed to meet the Chest Pain Accreditation requirement, element EC5.M1l2. Troponin units are changed from pg/ml to ng/L. Also, the decimal is removed andresults are in whole numbers.PERFORMED BY:[address] [place] [phone] MEDICAL DIRECTORCELESTE GERMAN M.D.Performed By: #### CK, HS TROP ####[address] [address] USAUS renal BIon 35-37-1336AA renal BINormalThe [facility] Group Vit. B12/Folate Profileon 22-37-7175Paldmkkcr (Vitamin B12) [Mass/Vol]435 pg/mL Uudjnf232-249Tht Jefferson HealthComment on above:Order Comment: FASTING YPerformed By: #### BNP, [id number], LIPID, PT, BMP, LACTIC, CBC, PTT ####[address] [address] USAFolate 11.6 ng/mLNormal>5.9The [facility] Physician GroupComment on above:Order Comment: FASTING YResult Comment: Folate reference range: >5.9 ng/ml The WHO technical consultation on folate and vitamin b12 deficiencies has determined that folate concentrations less than 4 ng/ml are considered deficient.PERFORMED BY:[place] [address] [address] [place]NEW [place], [place] [phone] MEDICAL ELÍAS GERMAN M.D.Performed By: #### BNP, [id number], LIPID, PT, BMP, LACTIC, CBC, PTT ####[address] [address] USAVitamin B1 (Thiamine) Bloodon 31-90-2857Uqopxyq B1 (Thiamine) Blood84.8Tdgtxj80.5-200.0The [facility] Physician GroupComment on above:Result Comment: This test was developed and its performance characteristics determined by [facility]. It has not been cleared or approved by the Food and Drug Administration. Performed at: [facility] [address] [id number] Hris Administrator: Gareth Alford MD, Phone: [phone] BY:[place] [address] [address] LIZARRAGASHARNEW [place], [place] [phone] MEDICAL ELÍAS GERMAN M.D.Performed By: #### VITB1, FTA ####[facility] ,XR chest 1V portableon 08-01-2025 XR chest 1V portableNormDeSoto Memorial Hospital Physician PcemzC5S with Estimated Average Gluon 31-40-9886Zysfeac [Mass/Vol]117 mg/dLNormDeSoto Memorial Hospital Physician [facility] HospitalComment on above:Result Comment: PERFORMED BY:[place] [address] [address] LIZARRAGASHARNEW [place], [place] [phone] MEDICAL ELÍAS GERMAN M.D.Performed By: #### A1C WTH eA ####[place] [address] [place], [place] [address]EJKLxH8y (Bld) [Mass fraction]5.7 %High4.3-5.6The [facility] Physician GroupComment on above:Result Comment: Increased risk for diabetes: 5.7 - 6.4 diabetes: >6.4 glycemic control for adults with diabetes: <7.0Performed By: #### A1C WTH eA ####[address] [address]LTMLyxb-Te UF Heparinon 43-21-3349Ulqe-Xa UF Heparin<0.04Low0.30-0.70The [facility] Physician [facility] Comment on above:Result Comment: Use the aPTT protocol when triglycerides are > 800 mg/dL, total bilirubin is > 20 mg/dL and/or patient has received a DOAC, Fondaparinux or LMWH within 72 hours AND baseline anti-Xa level is > 0.7 units/mLPERFORMED BY:[address] [place]LLYScarlettJeremiFERNEY, [place] [phone] MEDICAL DIRECTORCELESTE GERMAN M.D.Performed By: #### UFHEP ####[address] [address] USAAnti-Xa UF Heparin0.05Low0.30-0.70The [facility] Physician [facility] HospitalComment on above:Result Comment: Use the aPTT protocol when triglycerides are > 800 mg/dL, total bilirubin is > 20 mg/dL and/or patient has received a DOAC, Fondaparinux or LMWH within 72 hours AND baseline anti-Xa level is > 0.7 units/mLPERFORMED BY:[address] [place], [place] [phone] MEDICAL ELÍAS GERMAN M.D.Performed By: #### PTT, SCAN CBC, UFHEP, PT, CUBLD, BNP, MG, LACTIC, BMP, HEPATIC ####[address] [address] [facility] Arterial Blood Gason 54-44-4968VOL Base Excess-2.7 mmol/LNormal-3.0-3.0The [facility] Physician [facility] HospitalComment on above:Performed By: #### ABG ####Point of Care testing,ABG Frac Inspired O250 %NormalThe [facility] Physician GroupComment on above:Performed By: #### ABG ####Point of Care testing,ABG Oxygen Content8.2 mmol/LNormal6.6-9.7The [facility] Physician GroupComment on above:Performed By: #### ABG ####Point of Care testing,ABG Oxygen Bwdwoplvyb40.9 %Low95.0-100.0The [facility] Physician GroupComment on above:Performed By: #### ABG ####Point of Care testing,ABG LAG282.3 mm[Hg]Off scale high35.0-45.0The [facility] Physician GroupComment on above:Performed By: #### ABG ####Point of Care testing,ABG PEEP5 NormalThe [facility] Physician GroupComment on above:Performed By: #### ABG ####Point of Care testing,ABG PH7.28Low7.35-7.45The [facility] Comment on above:Performed By: #### ABG ####Point of Care testing,ABG PO272.1 mm[Hg]Low80.0-100.0The [facility] Physician GroupComment on above:Performed By: #### ABG ####Point of Care testing,ABG TV500 mLNormalThe [facility] Physician GroupComment on above:Performed By: #### ABG ####Point of Care testing,CO2 [Moles/Vol]26.5 mmol/PHpjhfc24.0-27.0The [facility] Physician GroupComment on above:Performed By: #### ABG ####Point of Care testing,HCO3 (Bld) [Moles/Vol] 24.8 mmol/LYzxgtv63.0-29.0The [facility] Physician GroupComment on above: Performed By: #### ABG ####Point of Care testing,Respiratory CriticalNormalThe [facility] Physician GroupComment on above:Result Comment: Critical Value called on: 07/31/2025 at 21:22PERFORMED BY:[place] [address] DOMINGUEZNEW [place], [place] [phone] MEDICAL DIRECTORCELESTE GERMAN M.D.Performed By: #### ABG ####Point of Care testing,Set Respiratory Rate16 NormalThe [facility] Physician GroupComment on above:Performed By: #### ABG ####Point of Care testing,VBG Draw SiteRight RadialUF Health Leesburg Hospital Physician GroupComment on above:Performed By: #### ABG ####Point of Care testing, Ventilator ModeACUF Health Leesburg Hospital Physician GroupComment on above:Performed By: #### ABG ####Point of Care testing,B-Type Natriuretic Peptideon 07-31-2025 Natriuretic peptide B (Bld) [Mass/Vol]695.0 pg/mLHigh5-100The [facility] Physician GroupComment on above:Result Comment: PERFORMED BY:[address] [place], [place] [phone] MEDICAL ELÍAS EGRMAN M.D.Performed By: #### PTT, SCAN CBC, UFHEP, PT, CUBLD, BNP, MG, LACTIC, BMP, HEPATIC ####[address] [address] USABasic Metabolic Panelon 92-79-2942Kqqpx gap [Moles/Vol]12.2 mmol/LNormal6.0-15.0The [facility] Physician GroupComment on above:Performed By: #### PTT, SCAN CBC, UFHEP, PT, CUBLD, BNP, MG, LACTIC, BMP, HEPATIC ####[address] [address] USACalcium [Mass/Vol]8.4 mg/dLLow8.6-10.3The [facility] Physician GroupComment on above:Performed By: #### PTT, SCAN CBC, UFHEP, PT, CUBLD, BNP, MG, LACTIC, BMP, HEPATIC ####[place] [address] USAChloride [Moles/Vol]93 mmol/HCct23-612Ajf [facility] Physician GroupComment on above:Performed By: #### PTT, SCAN CBC, UFHEP, PT, CUBLD, BNP, MG, LACTIC, BMP, HEPATIC ####[address] [place] [address] USACO2 [Moles/Vol]31.2 mmol/LHigh21.0-31.0The [facility] Physician GroupComment on above:Performed By: #### PTT, SCAN CBC, UFHEP, PT, CUBLD, BNP, MG, LACTIC, BMP, HEPATIC ####[place] [address] USACreatinine [Mass/Vol]3.19 mg/dLHigh0.70-1.30The [facility] Physician GroupComment on above:Performed By: #### PTT, SCAN CBC, UFHEP, PT, CUBLD, BNP, MG, LACTIC, BMP, HEPATIC ####[place] [address] USACreatinine Clr Calc Fwgknyfz45.17NormalThe [facility] Physician GroupComment on above:Performed By: #### PTT, SCAN CBC, UFHEP, PT, CUBLD, BNP, MG, LACTIC, BMP, HEPATIC ####[place] [address] USAGFR/1.73 sq M.predicted MDRD (S/P/Bld) [Vol rate/Area]20.633 mL/min/{1.73_m2}NormalThe [facility] Physician [facility] HospitalComment on above:Performed By: #### PTT, SCAN CBC, UFHEP, PT, CUBLD, BNP, MG, LACTIC, BMP, HEPATIC ####[place] [address] USAGlucose [Mass/Vol]107 mg/dFWwer27-125Lpk [facility] Physician GroupComment on above:Result Comment: Random Glucose Reference Range is dependent on time and content of last meal. Glucose of more than 200 mg/dL in a nonstressed, ambulatory subject supports the diagnosis of Diabetes Mellitus. ADA recommended reference rangePerformed By: #### PTT, SCAN CBC, UFHEP, PT, CUBLD, BNP, MG, LACTIC, BMP, HEPATIC ####[place] [address] USAPotassium [Moles/Vol]4.4 mmol/LNormal3.5-5.1The [facility] Physician GroupComment on above:Performed By: #### PTT, SCAN CBC, UFHEP, PT, CUBLD, BNP, MG, LACTIC, BMP, HEPATIC ####[address] [address] USASodium [Moles/Vol]132 mmol/CHls976-512 The [facility] Physician GroupComment on above:Performed By: #### PTT, SCAN CBC, UFHEP, PT, CUBLD, BNP, MG, LACTIC, BMP, HEPATIC ####[address] [address] USAUrea nitrogen [Mass/Vol]79 mg/dLHigh 7-e [facility] Physician GroupComment on above:Performed By: #### PTT, SCAN CBC, UFHEP, PT, CUBLD, BNP, MG, LACTIC, BMP, HEPATIC ####[address] [address] USABlood Cultureon 07-31-2025 Bacteria identified Cx Nom (Bld)NO GROWTH 5 DAYS PERFORMED BY: [place] [address] PATHOLOGIST OUTSIDE DELIVERER CELESTE GERMAN M.D.NormalThe [facility] Physician GroupComment on above: Performed By: #### PTT, SCAN CBC, UFHEP, PT, CUBLD, BNP, MG, LACTIC, BMP, HEPATIC ####[address] [address] USABacteria identified Cx Nom (Bld)NO GROWTH 5 DAYS PERFORMED BY: [place] [address] PATHOLOGIST OUTSIDE DELIVERER CELESTE GERMAN M.D.NormalHca [facility] Physician GroupComment on above: Performed By: #### PTT, SCAN CBC, UFHEP, PT, CUBLD, BNP, MG, LACTIC, BMP, HEPATIC ####[place] [id number] USACreatine Kinaseon 35-29-8164HE [Catalytic activity/Vol]151 U/IXlrgrk55-318Tee [facility] Physician GroupComment on above:Performed By: #### CK, HS TROP ####[address] [address] [place] Dipstick and Microscopicon 13-68-1060Uguyjrsffq (U)CloudyCritically abnormal ClearThe [facility] Physician GroupComment on above:Order Comment: Name Collection Type:: [place] CatheterPerformed By: #### ADDONUAPLUS ####[address] [address] USABacteria,UrineRare NormalNone SeenThe [facility] Physician GroupComment on above:Order Comment: Name Collection Type:: [place] CatheterPerformed By: #### ADDONUAPLUS ####[address] [address] USABilirubin,Urine NegativeNormalNegativeThe [facility] Physician GroupComment on above:Order Comment: Name Collection Type:: [place] CatheterPerformed By: #### ADDONUAPLUS ####[address] [address] USAColor (U)YellowNormalYellowThe [facility] Physician GroupComment on above:Order Comment: Name Collection Type:: [place] CatheterPerformed By: #### ADDONUAPLUS ####[address] [address] USAGlucose Ql (U)NormalNormalNormalThe [facility] Physician GroupComment on above:Order Comment: Name Collection Type:: [place] CatheterPerformed By: #### ADDONUAPLUS ####[address] [address] USA Granular Casts, Urine5-9NormalNone SeenThe [facility] Physician GroupComment on above:Order Comment: Name Collection Type:: [place] CatheterPerformed By: #### ADDONUAPLUS ####[address] [address] USAHyaline Casts,Uolbk8-07Aeookl4-6Vrt [facility] Physician GroupComment on above:Order Comment: Name Collection Type:: [place] CatheterPerformed By: #### ADDONUAPLUS ####[address] [place] [address] USAKetones Ql (U)NegativeNormalNegativeThe [facility] Group Comment on above:Order Comment: Name Collection Type:: [place] CatheterPerformed By: #### ADDONUAPLUS ####[address] [address] USALeukocyte esterase Test strip Ql (U)NegativeNormal NegativeThe [facility] Physician GroupComment on above:Order Comment: Name Collection Type:: [place] CatheterPerformed By: #### ADDONUAPLUS ####[address] [address] USAMucus,UrineRareNormal The [facility] Physician GroupComment on above:Order Comment: Name Collection Type:: [place] CatheterResult Comment: PERFORMED BY:[place] [address] [address] [place]REUCH[place], [place] [phone] MEDICAL ELÍAS GERMAN M.D.Performed By: #### ADDONUAPLUS ####[address] [address] USANitrite,UrineNegative NormalNegativeThe [facility] Physician GroupComment on above:Order Comment: Name Collection Type:: [place] CatheterPerformed By: #### ADDONUAPLUS ####[address] [address] USAOccult Blood,Urine2+ NormalNegativeThe [facility] Physician GroupComment on above:Order Comment: Name Collection Type:: [place] CatheterResult Comment: PERFORMED BY:[place] [address] [address] [place], [place] [phone] MEDICAL ELÍAS GERMAN M.D.Performed By: #### ADDONUAPLUS ####[address] [address] USApH (U)5.5 [pH]Normal 5.0-9.0The [facility] Physician GroupComment on above:Order Comment: Name Collection Type:: [place] CatheterPerformed By: #### ADDONUAPLUS ####[address] [address] USAProtein (U) [Mass/Vol]50 mg/dLNormalNegativeThe [facility] Physician GroupComment on above: Order Comment: Name Collection Type:: [place] CatheterPerformed By: #### ADDONUAPLUS ####[address] [address] USARBC,Lfzbr75-74Kkonzs7-9Ouy [facility] Physician GroupComment on above: Order Comment: Name Collection Type:: [place] CatheterPerformed By: #### ADDONUAPLUS ####[address] [address] USASpecificy Caret,Urine1.581Luhabo3.001-1.030The [facility] Physician GroupComment on above:Order Comment: Name Collection Type:: [place] Catheter Performed By: #### ADDONUAPLUS ####[address] [address] USASquamous Epithelial Cell,Evdrm5-7Xmdknv5-4Jby [facility] Physician GroupComment on above:Order Comment: Name Collection Type:: [place] CatheterPerformed By: #### ADDONUAPLUS ####[address] [address] USAUrobilinogen,UrineNormalNormalNormal [facility] Physician GroupComment on above:Order Comment: Name Collection Type:: [place] CatheterPerformed By: #### ADDONUAPLUS ####[address] [address] USAWBC,Uzegu1-2Phyjdg2-1Aob [facility] Physician GroupComment on above:Order Comment: Name Collection Type:: [place] CatheterPerformed By: #### ADDONUAPLUS ####[address] [address] USADrug Screen,Urineon 07-31-2025 Amphetamine Screen,UrinePositiveNormalNegativeThe [facility] Group Comment on above:Performed By: #### URDS ####[address] [address] USABarbiturate Screen,UrineNegativeNormalNegative The [facility] Physician GroupComment on above:Performed By: #### URDS ####[address] [address] [place] Benzodiazepines Screen,UrinePositiveNormalNegativeThe [facility] Comment on above:Performed By: #### URDS ####[place] [id number] USACannabinoid Screen,UrineNegativeNormalNegative The [facility] Physician GroupComment on above:Result Comment: These are unconfirmed results and should not be used for legal purposes. Drug Cut-Off Concentration: AMPH 1000 ng/mL BHASKAR 200 ng/mL RIKKI 200 ng/mL COCM 300 ng/mL OP 300 ng/mL PCP 25 ng/mL THC 20 ng/mLPERFORMED BY:[address] [place]LLYScarlettJeremiFERNEY, [place] [phone] MEDICAL DIRECTORCELESTE GERMAN M.D.Performed By: #### URDS ####[place] [id number] USACocaine Screen,UrineNegative NormalNegativeThe [facility] Physician [facility] HospitalComment on above:Performed By: #### URDS ####[place] [id number] [place] Opiate Screen,UrineNegativeNormalNegativeThe [facility] Physician GroupComment on above:Performed By: #### URDS ####[place] [id number] USAPhencyclidine Screen,UrineNegativeNormalNegativeThe [facility] Physician GroupComment on above:Performed By: #### URDS ####[place] [id number] USAFree T4 (Free Thyroxine)on 04-35-5219Mglk T4 [Mass/Vol]0.40 ng/dLLow0.61-1.12The [facility] Physician GroupComment on above:Performed By: #### TSH3, T4F, T4T ####[place] [id number] USAHepatic Panelon 45-57-1656Rzknucy [Mass/Vol]3.7 g/dLNormal3.5-5.7The [facility] Physician [facility] Comment on above:Performed By: #### PTT, SCAN CBC, UFHEP, PT, CUBLD, BNP, MG, LACTIC, BMP, HEPATIC ####[place] [id number] USAAlbumin/Globulin [Mass ratio]1.4 {ratio}NormalThe [facility] Physician GroupComment on above:Performed By: #### PTT, SCAN CBC, UFHEP, PT, CUBLD, BNP, MG, LACTIC, BMP, HEPATIC ####[place] [id number] USAALP [Catalytic activity/Vol]74 U/L Gvvkqo19-542Dpc [facility] Physician [facility] HospitalComment on above:Performed By: #### PTT, SCAN CBC, UFHEP, PT, CUBLD, BNP, MG, LACTIC, BMP, HEPATIC ####[place] [id number] USAALT [Catalytic activity/Vol]16 U/LNormal7-52The [facility] Physician [facility] HospitalComment on above: Performed By: #### PTT, SCAN CBC, UFHEP, PT, CUBLD, BNP, MG, LACTIC, BMP, HEPATIC ####[place] [id number] USAAST [Catalytic activity/Vol]26 U/FOqnvuh98-50Irv [facility] Comment on above:Performed By: #### PTT, SCAN CBC, UFHEP, PT, CUBLD, BNP, MG, LACTIC, BMP, HEPATIC ####[place] [id number] USABilirubin [Mass/Vol]1.1 mg/dLHigh0.3-1.0The [facility] Physician GroupComment on above:Performed By: #### PTT, SCAN CBC, UFHEP, PT, CUBLD, BNP, MG, LACTIC, BMP, HEPATIC ####[place] [id number] USABilirubin,Indirect0.8 mg/dLNormalThe [facility] Physician GroupComment on above:Performed By: #### PTT, SCAN CBC, UFHEP, PT, CUBLD, BNP, MG, LACTIC, BMP, HEPATIC ####[place] [id number] USABilirubin.indirect [Mass/Vol]0.30 mg/dLHigh0.03-0.18The [facility] Physician GroupComment on above:Performed By: #### PTT, SCAN CBC, UFHEP, PT, CUBLD, BNP, MG, LACTIC, BMP, HEPATIC ####[place] [id number] [place] Globulin (S) [Mass/Vol]2.7 g/dLNormalThe [facility] Physician GroupComment on above:Performed By: #### PTT, SCAN CBC, UFHEP, PT, CUBLD, BNP, MG, LACTIC, BMP, HEPATIC ####[place] [address] USAProtein [Mass/Vol]6.4 g/dLNormal6.4-8.9The [facility] Physician GroupComment on above:Performed By: #### PTT, SCAN CBC, UFHEP, PT, CUBLD, BNP, MG, LACTIC, BMP, HEPATIC ####[place] [id number] USALactic Acidon 18-88-6123Kuwgzro [Moles/Vol]2.3 mmol/LOff scale high 0.5-1.9The [facility] Physician [facility] HospitalComment on above:Result Comment: Critical Result : Called to and read back by: IDANIA OCHOA at: 07/31/2025 21:24:20 by:LFM Lactic Acid reference range has been updated to 0.5 ? 1.9 mmol/L and the critical range of 2.0 orgreater.PERFORMED BY:[address] [place], [place] [phone] MEDICAL ELÍAS GERMAN M.D.Performed By: #### PTT, SCAN CBC, UFHEP, PT, CUBLD, BNP, MG, LACTIC, BMP, HEPATIC ####[place] [id number] USALevetiracetam (Keppra)on 67-30-8617gygYTYJSyjaqz [Mass/Vol]9.2 ug/fOBcjmee61.0-40.0The [facility] Physician GroupComment on above: Result Comment: Performed at: [facility] [address] [id number] LabDirector: Gareth Alford MD, Phone: [phone] BY:[address] DOMINGUEZNEW [place]ED[place], [place] [phone] MEDICAL ELÍAS GERMAN M.D.Performed By: #### LEV ####[facility] ,Magnesiumon 12-18-6496Qmduevfas [Mass/Vol]2.3 mg/dLNormal1.9-2.7The [facility] Physician GroupComment on above: Result Comment: PERFORMED BY:[place] [address] [address] DOMINGUEZNEW [place], [place] [phone] MEDICAL ELÍAS GERMAN M.D.Performed By: #### PTT, SCAN CBC, UFHEP, PT, CUBLD, BNP, MG, LACTIC, BMP, HEPATIC ####[place] [address] [place] [address] USAPartial Thromboplastin Timeon 45-40-5202dLXU Coag (Bld) [Time]30.6 sNormal 25.1-36.5The [facility] Physician GroupComment on above:Result Comment: A hematocrit value greater than 55% may lead to inaccurate results in coagulation testing. Patients having hematocrit values >55% require a special collection tube for coagulation studies. Please contact the laboratory at [phone] for redraw instructions.Performed By: #### PTT, SCAN CBC, UFHEP, PT, CUBLD, BNP, MG, LACTIC, BMP, HEPATIC ####[address] [address] USAProthrombin Time INRon 47-17-9468OLF Coag (PPP) [Relative time]0.9 {INR}NormalThe [facility] Physician GroupComment on above: Result Comment: INR [...] PT, CUBLD, BNP, MG, LACTIC, BMP, HEPATIC ####[place] [address] [place] [id number] USAPT Coag (PPP) [Time]10.6 sNormal9.0-12.9The [facility] Physician GroupComment on above:Result Comment: A hematocrit value greater than 55% may lead to inaccurate results in coagulation testing. Patients having hematocrit values >55% require a special collection tube for coagulation studies. Please contact the laboratory at [phone] for redraw instructions. Performed By: #### PTT, SCAN CBC, UFHEP, PT, CUBLD, BNP, MG, LACTIC, BMP, HEPATIC ####[address] [address] USAScan and CBCon 47-40-5446Daaqxsdgiovn Ql (Bld)SlightNormalThe [facility] Physician GroupComment on above:Performed By: #### PTT, SCAN CBC, UFHEP, PT, CUBLD, BNP, MG, LACTIC, BMP, HEPATIC ####[address] [address] USABasophils (Bld) [#/Vol]0.0 10*3/uLNormal 0.0-0.2The Jefferson HealthComment on above:Performed By: #### PTT, SCAN CBC, UFHEP, PT, CUBLD, BNP, MG, LACTIC, BMP, HEPATIC ####[address] [address] USABasophils/100 WBC (Bld)0.2 % Normal.The [facility] Physician GroupComment on above:Performed By: #### PTT, SCAN CBC, UFHEP, PT, CUBLD, BNP, MG, LACTIC, BMP, HEPATIC ####[place] [address] USAEosinophils (Bld) [#/Vol]0.0 10*3/uLNormal0.0-0.45The [facility] Physician GroupComment on above:Performed By: #### PTT, SCAN CBC, UFHEP, PT, CUBLD, BNP, MG, LACTIC, BMP, HEPATIC ####[place] [address] [place] Eosinophils/100 WBC (Bld)0.1 %Normal.The [facility] Physician GroupComment on above:Performed By: #### PTT, SCAN CBC, UFHEP, PT, CUBLD, BNP, MG, LACTIC, BMP, HEPATIC ####[place] [address] USAErythrocyte distribution width (RBC) [Ratio]15.6 %High12.0-14.8The [facility] Physician GroupComment on above:Performed By: #### PTT, SCAN CBC, UFHEP, PT, CUBLD, BNP, MG, LACTIC, BMP, HEPATIC ####[place] [address] USAHematocrit (Bld) [Volume fraction]43.4 %Normal 38.8-50.0The [facility] Physician GroupComment on above:Performed By: #### PTT, SCAN CBC, UFHEP, PT, CUBLD, BNP, MG, LACTIC, BMP, HEPATIC ####[place] [address] USAHemoglobin (Bld) [Mass/Vol] 14.1 g/pPZwqsmh12.0-17.0The [facility] Physician GroupComment on above:Performed By: #### PTT, SCAN CBC, UFHEP, PT, CUBLD, BNP, MG, LACTIC, BMP, HEPATIC ####[place] [address] [place] Lymphocytes (Bld) [#/Vol]0.3 10*3/uLLow1.00-4.8The [facility] Comment on above:Performed By: #### PTT, SCAN CBC, UFHEP, PT, CUBLD, BNP, MG, LACTIC, BMP, HEPATIC ####[address] StreetLymphocytes/100 WBC (Bld)8.0 %Normal.The [facility] Physician GroupComment on above:Performed By: #### PTT, SCAN CBC, UFHEP, PT, CUBLD, BNP, MG, LACTIC, BMP, HEPATIC ####[address]H (RBC) [Entitic mass]30.7 rjIcxcee97.5-35.2 The [facility] Physician GroupComment on above:Performed By: #### PTT, SCAN CBC, UFHEP, PT, CUBLD, BNP, MG, LACTIC, BMP, HEPATIC ####[address]V (RBC) [Entitic vol]94.3 fLNormal 83.5-101The [facility] Physician GroupComment on above:Performed By: #### PTT, SCAN CBC, UFHEP, PT, CUBLD, BNP, MG, LACTIC, BMP, HEPATIC ####[address]Mean Corpuscular HGB Conc32.5 g/jFRxhxkg37.5-35.6The [facility] Physician GroupComment on above:Performed By: #### PTT, SCAN CBC, UFHEP, PT, CUBLD, BNP, MG, LACTIC, BMP, HEPATIC ####[address] MicrocytosisSlightNormalThe [facility] Physician GroupComment on above:Performed By: #### PTT, SCAN CBC, UFHEP, PT, CUBLD, BNP, MG, LACTIC, BMP, HEPATIC ####[address] Monocytes (Bld) [#/Vol]0.3 10*3/uLNormal0.0-0.8The [facility] Comment on above:Performed By: #### PTT, SCAN CBC, UFHEP, PT, CUBLD, BNP, MG, LACTIC, BMP, HEPATIC ####[place] [address] USAMonocytes/100 WBC (Bld)7.4 %Normal.The [facility] Physician GroupComment on above:Performed By: #### PTT, SCAN CBC, UFHEP, PT, CUBLD, BNP, MG, LACTIC, BMP, HEPATIC ####[place] [address] USANeutrophils (Bld) [#/Vol]3.5 10*3/uLNormal 1.8-7.7The [facility] Physician GroupComment on above:Performed By: #### PTT, SCAN CBC, UFHEP, PT, CUBLD, BNP, MG, LACTIC, BMP, HEPATIC ####[place] [address] USANeutrophils/100 WBC (Bld)84.3 %Normal.The [facility] Physician GroupComment on above:Performed By: #### PTT, SCAN CBC, UFHEP, PT, CUBLD, BNP, MG, LACTIC, BMP, HEPATIC ####[place] [address] USANRBC%0.6 /100{WBC}High0-0.5 The [facility] Physician GroupComment on above:Performed By: #### PTT, SCAN CBC, UFHEP, PT, CUBLD, BNP, MG, LACTIC, BMP, HEPATIC ####[place] [address] USAPlatelet EstimateNormalNormalNormalThe [facility] Physician GroupComment on above:Performed By: #### PTT, SCAN CBC, UFHEP, PT, CUBLD, BNP, MG, LACTIC, BMP, HEPATIC ####[place] [address] USAPlatelet mean volume (Bld) [Entitic vol]7.6 fLNormal6.6-10.1The [facility] Physician GroupComment on above:Performed By: #### PTT, SCAN CBC, UFHEP, PT, CUBLD, BNP, MG, LACTIC, BMP, HEPATIC ####[address] [address] [place] Platelet MorphologyNormalNormalUF Health Leesburg Hospital Physician GroupComment on above:Result Comment: PERFORMED BY:[address] [place], [place] [phone] MEDICAL ELÍAS GERMAN M.D.Performed By: #### PTT, SCAN CBC, UFHEP, PT, CUBLD, BNP, MG, LACTIC, BMP, HEPATIC ####[address] [address] USAPlatelets (Bld) [#/Vol]210 10*3/rETfvgpb504-011Ufu [facility] Comment on above:Performed By: #### PTT, SCAN CBC, UFHEP, PT, CUBLD, BNP, MG, LACTIC, BMP, HEPATIC ####[place] [id number] USAPolychromasiaSlightUF Health Leesburg Hospital Physician GroupComment on above:Performed By: #### PTT, SCAN CBC, UFHEP, PT, CUBLD, BNP, MG, LACTIC, BMP, HEPATIC ####[place] [id number] USARBC (Bld) [#/Vol]4.60 10*6/uLNormal3.90-5.60The [facility] Physician GroupComment on above:Performed By: #### PTT, SCAN CBC, UFHEP, PT, CUBLD, BNP, MG, LACTIC, BMP, HEPATIC ####[place] [id number] USAWBC (Bld) [#/Vol]4.2 10*3/uLNormal 4.1-10.5The [facility] Physician GroupComment on above:Performed By: #### PTT, SCAN CBC, UFHEP, PT, CUBLD, BNP, MG, LACTIC, BMP, HEPATIC ####[place] [id number] USAWhite Blood Count4.2 [CFU]/mL Normal4.1-10.5The [facility] Physician GroupComment on above:Performed By: #### PTT, SCAN CBC, UFHEP, PT, CUBLD, BNP, MG, LACTIC, BMP, HEPATIC ####[place] [address] [place] [address] USAThyroid Stimulating Hormoneon 49-92-9917RDU Qn30.17 m[IU]/LHigh0.45-5.33The [facility] Physician GroupComment on above:Result Comment: PERFORMED BY:[place] [address] [address] LIZARRAGASHARNEW [place], [place] [phone] MEDICAL ELÍAS GERMAN M.D.Performed By: #### TSH3, T4F, T4T ####[place] [address] [facility] [place] [address] USAThyroxine (T4) Total on 66-45-6316B1 [Mass/Vol]1.43 ug/dLLow5.39-11.82The [facility] Comment on above:Performed By: #### TSH3, T4F, T4T ####[place] [address] [place] [address] USAToxassure, Urineon 07-31-2025 Toxassure, Urine SummaryFINALNormal.The [facility] Physician GroupComment on above:Result Comment: TOXASSURE COMPDRUG [...] clinical consultation, please call . Performed at: [facility] [address] [id number] Hris Administrator: Lesia Balderas, Phone: [phone] BY:[place] [address] [address] DOMINGUEZNEW [place], [place] [phone] MEDICAL DIRECTORCELESTE GERMAN M.D.Performed By: #### TOXASSURE ####[facility] ,Troponin I High Sensitivityon 18-02-2584Itssjwgu I High Jxwetlnbjsv4002Fgx scale [facility] Physician [facility] HospitalComment on above: Result Comment: Critical Result : Called to and read back by: IDANIA OCHOA at: 07/31/2025 21:39:42 by:[facility] The Troponin units of report have been changed to meet the Chest Pain Accreditation requirement, element EC5.M1l2. Troponin units are changed from pg/ml to ng/L. Also, the decimal is removed and results are in whole numbers.PERFORMED BY:[phone] MEDICAL DIRECTORCELESTE GERMAN M.D.Performed By: #### CK, HS TROP ####[address] [address] USAUrine Cultureon 11-04-0989Zelkregf identified Cx Nom (U)No Growth 2 Days PERFORMED BY: [place] [address] PATHOLOGIST OUTSIDE DELIVERER CELESTE GERMAN M.D.NormalWayne General HospitalComment on above: Performed By: #### CUU ####[place] [id number] USABacteria identified Cx Nom (U)Urine Culture Results No Growth 2 Days PERFORMED BY: [place] [id number] PATHOLOGIST OUTSIDE DELIVERER CELESTE GERMAN M.D.[facility] Hospital of MinneapolisComment on above: Performed By: #### CUU ####[address] [address] USAUrine cultureOrdered By: Salty Luis on 07-31-2025 Bacteria identified Cx Nom (U)[facility]woodsXR chest 1V portableon 51-99-3476AM chest 1V [facility] hospitalNoAd[facility] Phys[facility] Arterial Blood Gason 13-41-6617AFI Base Excess0.2 mmol/LNormal-3.0-3.0The [facility] Physician GroupComment on above:Performed By: #### ABG ####Point of Care testing,ABG Frac Inspired Q7QaeghcEeo [facility] Physician GroupComment on above:Performed By: #### ABG ####Point of Care testing,ABG Liter Hiri2EWarjygHda [facility] Physician GroupComment on above:Performed By: #### ABG ####Point of Care testing,ABG Oxygen Content9.8 mmol/LHigh6.6-9.7The [facility] Physician GroupComment on above:Performed By: #### ABG ####Point of Care testing,ABG Oxygen Hxmsmjpzcr77.5 %Dpcepm55.0-100.0The [facility] Physician GroupComment on above:Performed By: #### ABG ####Point of Care testing,ABG PUB848.3 mm[Hg]Normal 35.0-45.0The [facility] Physician GroupComment on above:Performed By: #### ABG ####Point of Care testing,ABG PH7.88Ekuybe6.35-7.45The [facility] Comment on above:Performed By: #### ABG ####Point of Care testing,ABG PO287.8 mm[Hg]Jhgmdz57.0-100.0The [facility] Physician GroupComment on above:Performed By: #### ABG ####Point of Care testing,CO2 [Moles/Vol]26.3 mmol/IIntxrh94.0-27.0 The [facility] Physician GroupComment on above:Performed By: #### ABG ####Point of Care testing,HCO3 (Bld) [Moles/Vol]25.0 mmol/DNjdjxm45.0-29.0The [facility] Physician GroupComment on above:Performed By: #### ABG ####Point of Care testing,Oxygen DeviceNasal CannulaNormDeSoto Memorial Hospital Physician GroupComment on above:Performed By: #### ABG ####Point of Care testing,Respiratory Critical NormalThe [facility] Physician GroupComment on above:Result Comment: Critical Value called on: 06/07/2025 at 13:57PERFORMED BY:[place] [address] [address] [place], [place] [phone] MEDICAL DIRECTORCELESTE GERMAN M.D.Performed By: #### ABG ####Point of Care testing, VBG Draw SiteRigOrlando Health Horizon West Hospital Physician GroupComment on above: Performed By: #### ABG ####Point of Care testing,Complete Blood Count Auto Diff on 90-74-6395Nvzgtqebh (Bld) [#/Vol]0.0 10*3/uLNormal0.0-0.2The [facility] Physician GroupComment on above:Result Comment: PERFORMED BY:[address] [place], [place] [phone] MEDICAL DIRECTORCELESTE GERMAN M.D.Performed By: #### CMP, CBC ####[address] [address] USABasophils/100 WBC (Bld)0.4 % Normal.The [facility] Physician GroupComment on above:Performed By: #### CMP, CBC ####[address] [address] [place] Eosinophils (Bld) [#/Vol]0.0 10*3/uLNormal0.0-0.45The [facility] Comment on above:Performed By: #### CMP, CBC ####[address] [address] USAEosinophils/100 WBC (Bld)0.1 %Normal. The [facility] Physician GroupComment on above:Performed By: #### CMP, CBC ####[address] [address] [place] Erythrocyte distribution width (RBC) [Ratio]15.5 %High12.0-14.8The [facility] Physician GroupComment on above:Performed By: #### CMP, CBC ####[address] [address] USAHematocrit (Bld) [Volume fraction]46.4 %Kctnqs18.8-50.0The [facility] Physician GroupComment on above:Performed By: #### CMP, CBC ####[place] [address] USAHemoglobin (Bld) [Mass/Vol]15.2 g/cBHaoxag54.0-17.0 The [facility] Physician GroupComment on above:Performed By: #### CMP, CBC ####[place] [address] [place] Lymphocytes (Bld) [#/Vol]0.5 10*3/uLLow1.00-4.8The [facility] Comment on above:Performed By: #### CMP, CBC ####[place] [address] USALymphocytes/100 WBC (Bld)7.4 %Normal. The [facility] Physician GroupComment on above:Performed By: #### CMP, CBC ####[address] StreetMCH (RBC) [Entitic mass]29.6 lnRkpjbc62.5-35.2The [facility] Physician GroupComment on above:Performed By: #### CMP, CBC ####[place] [address] USAMCV (RBC) [Entitic vol]90.3 fHYrumro96.5-101 The [facility] Physician GroupComment on above:Performed By: #### CMP, CBC ####[place] [address] USAMean Corpuscular HGB Conc32.7 g/cHPbxyfl27.5-35.6The [facility] Physician GroupComment on above:Performed By: #### CMP, CBC ####[place] [address] USAMonocytes (Bld) [#/Vol]0.2 10*3/uLNormal 0.0-0.8The [facility] Physician GroupComment on above:Performed By: #### CMP, CBC ####[place] [address] [place] Monocytes/100 WBC (Bld)3.3 %Normal.The [facility] Physician GroupComment on above:Performed By: #### CMP, CBC ####[place] [address] USANeutrophils (Bld) [#/Vol]5.8 10*3/uLNormal1.8-7.7The [facility] Physician GroupComment on above:Performed By: #### CMP, CBC ####[place] [address] [place] Neutrophils/100 WBC (Bld)88.8 %Normal.The [facility] Physician GroupComment on above:Performed By: #### CMP, CBC ####[place] [address] USANRBC%0.1 /100{WBC}Normal0-0.5The [facility] Physician GroupComment on above:Performed By: #### CMP, CBC ####[place] [address] USAPlatelet mean volume (Bld) [Entitic vol]6.7 fLNormal6.6-10.1The [facility] Physician GroupComment on above: Performed By: #### CMP, CBC ####[place] [address] USAPlatelets (Bld) [#/Vol]225 10*3/uTWpnkhv339-416Oiq [facility] Physician GroupComment on above:Performed By: #### CMP, CBC ####[place] [address] USARBC (Bld) [#/Vol]5.14 10*6/uLNormal3.90-5.60The [facility] Physician GroupComment on above:Performed By: #### CMP, CBC ####[place] [address] USAWBC (Bld) [#/Vol]6.6 10*3/uLNormal4.1-10.5The [facility] Physician GroupComment on above:Performed By: #### CMP, CBC ####[address] [address] USAWhite Blood Count6.6 [CFU]/mLNormal4.1-10.5The [facility] Physician GroupComment on above:Performed By: #### CMP, CBC ####[address] [address] USAComprehensive Metabolic Panelon 33-75-4794Vlnytot [Mass/Vol]4.3 g/dLNormal3.5-5.7The [facility] Physician GroupComment on above: Performed By: #### CMP, CBC ####[address] [address] USAAlbumin/Globulin [Mass ratio]1.5 {ratio}NormalThe [facility] Physician GroupComment on above:Performed By: #### CMP, CBC ####[address] [address] USAALP [Catalytic activity/Vol]97 U/ZGxywwd30-214Olj [facility] Physician GroupComment on above:Performed By: #### CMP, CBC ####[address] [address] USAALT [Catalytic activity/Vol]22 U/LNormal7-52 The [facility] Physician GroupComment on above:Performed By: #### CMP, CBC ####[address] [address] USAAnion gap [Moles/Vol]9.2 mmol/LNormal6.0-15.0The [facility] Physician GroupComment on above:Performed By: #### CMP, CBC ####[address] [address] USAAST [Catalytic activity/Vol]57 U/ZKrel13-56Fbl [facility] Physician GroupComment on above:Performed By: #### CMP, CBC ####[address] [address] [place] Bilirubin [Mass/Vol]0.8 mg/dLNormal0.3-1.0The [facility] Physician GroupComment on above:Performed By: #### CMP, CBC ####[address] [address] USACalcium [Mass/Vol]9.3 mg/dLNormal8.6-10.3The [facility] Physician GroupComment on above:Performed By: #### CMP, CBC ####[address] [address] [place] Chloride [Moles/Vol]98 mmol/XFfzmqo77-057Hxp [facility] Physician GroupComment on above:Performed By: #### CMP, CBC ####[address] [address] USACO2 [Moles/Vol]30.8 mmol/JVpafzv41.0-31.0The [facility] Physician GroupComment on above:Performed By: #### CMP, CBC ####[place] [id number] [place] Creatinine [Mass/Vol]1.39 mg/dLHigh0.70-1.30The [facility] Physician GroupComment on above:Performed By: #### CMP, CBC ####[address] [address] USACreatinine Clr Calc Zjlidenm46.68NoAdventHealth Hendersonville Physician GroupComment on above:Result Comment: PERFORMED BY:[address] [place], [place] [phone] MEDICAL ELÍAS GERMAN M.D.Performed By: #### CMP, CBC ####[address] [address] USAGFR/1.73 sq M.predicted MDRD (S/P/Bld) [Vol rate/Area]55.911 mL/min/{1.73_m2}NormalThe [facility] Physician GroupComment on above:Performed By: #### CMP, CBC ####[address] [address] [place] Globulin (S) [Mass/Vol]2.9 g/dLUF Health Leesburg Hospital Physician GroupComment on above:Performed By: #### CMP, CBC ####[address] [place] [address] USAGlucose [Mass/Vol]189 mg/pGMkyr30-430Hgd [facility] Physician GroupComment on above:Result Comment: Random Glucose Reference Range is dependent on time and content of last meal. Glucose of more than 200 mg/dL in a nonstressed, ambulatory subject supports the diagnosis of Diabetes Mellitus. ADA recommended reference rangePerformed By: #### CMP, CBC ####[place] [address] USAPotassium [Moles/Vol] 4.0 mmol/LNormal3.5-5.1The [facility] Physician GroupComment on above:Performed By: #### CMP, CBC ####[place] [address] USAProtein [Mass/Vol]7.2 g/dLNormal6.4-8.9The [facility] Comment on above:Performed By: #### CMP, CBC ####[place] [address] USASodium [Moles/Vol]134 mmol/GRuy334-269 The [facility] Physician GroupComment on above:Performed By: #### CMP, CBC ####[place] [address] USAUrea nitrogen [Mass/Vol]17 mg/dLNormal7-25The [facility] Physician GroupComment on above:Performed By: #### CMP, CBC ####[place] [address] USADrug Screen,Urineon 22-77-0055Cevebxgslyc Screen,UrinePositiveNormalNegativeThe [facility] Physician GroupComment on above: Performed By: #### URDS ####[place] [address] USABarbiturate Screen,UrineNegativeNormalNegativeThe [facility] Physician GroupComment on above:Performed By: #### URDS ####[place] [address] USABenzodiazepines Screen,UrinePositiveNormalNegativeThe [facility] Physician GroupComment on above: Performed By: #### URDS ####[address] [address] USACannabinoid Screen,UrinePositiveNormalNegativeHca Florida [facility]ceola Hospital Physician GroupComment on above:Result Comment: These are unconfirmed results and should not be used for legal purposes. Drug Cut-Off Concentration: AMPH 1000 ng/mL BHASKAR 200 ng/mL RIKKI 200 ng/mL COCM 300 ng/mL OP 300 ng/mL PCP 25 ng/mL THC 20 ng/mLPERFORMED BY:[place] [address] [address] [place], [place] [phone] MEDICAL ELÍAS GERMAN M.D.Performed By: #### URDS ####[address] [address] USACocaine Screen,UrineNegativeNormalNegativeHca [facility] Hospital Physician GroupComment on above:Performed By: #### URDS ####[address] [address] USAOpiate Screen,Urine PositiveNormalNegativeThe [facility] Physician GroupComment on above:Performed By: #### URDS ####[address] [address] USAPhencyclidine Screen,UrineNegativeNormalNegativeHca Florida Osce[facility] Hospital Physician GroupComment on above:Performed By: #### URDS ####[address] [address] USAECG 12 lead ECGon 84-86-1122MPE 12 lead ECGNoAdventHealth Hendersonville Physician GroupECG 12 lead ECGNoAdventHealth Hendersonville Physician [facility] HospitalGlucose Poct Glucometerson 73-25-9603Akihppl9Xkc0: Cleaned Meter NormalHca Florida Osce[facility] Physician [facility] HospitalComment on above:Result Comment: PERFORMED BY:[place] [address] [place] [place], [place] [phone] MEDICAL ELÍAS GERMAN M.D.Performed By: #### GLULS ####Point of Care testing,Glucose [Mass/Vol]91 mg/dLNoAdventHealth Hendersonville Physician GroupComment on above:Result Comment: Random Glucose Reference Range is dependent on time and content of last meal. Glucose of more than 200 mg/dL in a nonstressed, ambulatory subject supports the diagnosis of Diabetes Mellitus. Performed By: #### GLULS ####Point of Care testing,Troponin I High Sensitivityon 79-56-4980Wqocemlm I High Nrqcmshratj16419Cob scale [address] Physician GroupComment on above:Result Comment: Critical Result I_TnIHS_d:01349 Called to and read back by: JANY SANDOVAL at: 06/07/2025 17:28:45 by:[id number] The Troponin units of report have been changed to meet the Chest Pain Accreditation requirement, element EC5.M1l2. Troponin units are changed from pg/ml to ng/L. Also, the decimal is removed and results are in whole numbers.PERFORMED BY:[place] [address] [place], [place] [phone] MEDICAL ELÍAS GERMAN M.D.Performed By: #### HS TROP ####[address] [address] USATroponin I High Niqcfjmruwl77459Uuh [address] Physician [facility] HospitalComment on above:Order Comment: per rn jemsa wait till they sedate ptResult Comment: Critical Result I_TnIHS_d:[id number] Called to and read back by: JANY SANDOVAL at: 06/07/2025 15:32:31 by:[id number] The Troponin units of report have been changed to meet the Chest Pain Accreditation requirement, element EC5.M1l2. Troponin units are changed from pg/ml to ng/L. Also, the deci mal is removed and results are in whole numbers.PERFORMED BY:[address] [place], [place] [phone] MEDICAL ELÍAS GERMAN M.D.Performed By: #### HS TROP ####[address] [address] USATroponin I High Sensitivity 6616Off scale [address] Physician GroupComment on above:Order Comment: rn [...] is removed andresults are in whole numbers.PERFORMED BY:[address] [place]REEJeremiSAND[place], [place] [phone] MEDICAL DIRECTORCELESTE GERMAN M.D.Performed By: #### HS TROP ####[address] [address] USABasic Metabolic Panelon 57-17-4012Lpzwt gap [Moles/Vol]13.2 mmol/L Normal6.0-15.0The [facility] Physician GroupComment on above:Performed By: #### MG BMP, CBCNO ####[address] [address] USACalcium [Mass/Vol]9.7 mg/dLNormal8.6-10.3The [facility] Physician Group Comment on above:Performed By: #### MG BMP, CBCNO ####[address] [address] USAChloride [Moles/Vol]105 mmol/L Yplvhh82-562Rse [facility] Physician GroupComment on above:Performed By: #### MG BMP, CBCNO ####[address] [address] USACO2 [Moles/Vol]25.2 mmol/QDplkzj14.0-31.0The [facility]ician Group Comment on above:Performed By: #### MG, BMP, CBCNO ####[address] [address] USACreatinine [Mass/Vol]0.81 mg/dLNormal0.70-1.30The [facility] Physician GroupComment on above:Performed By: #### MG, BMP, CBCNO ####[facility] [place] [address] USACreatinine Clr Calc Juodlekz84.46NormalThWeiser Memorial Hospital Physician GroupComment on above:Performed By: #### LISA HAIR CBCNO ####[place] [address] [place] [address] USAGFR/1.73 sq M.predicted MDRD (S/P/Bld) [Vol rate/Area]mL/min/{1.73_m2}NormalThe [facility] Comment on above:Performed By: #### LISA HAIR CBCNO ####[place] [address] [place] [address] USAGlucose [Mass/Vol]103 mg/dL Vnlf97-993Nvg [facility] Physician GroupComment on above:Result Comment: Random Glucose Reference Range is dependent on time and content of last meal. Glucose of more than 200 mg/dL in a nonstressed, ambulatory subject supports the diagnosis of Diabetes Mellitus. ADA recommended reference rangePerformed By: #### LISA HAIR CBCNO ####[place] [address] [place] [address] USAPotassium [Moles/Vol]3.4 mmol/LLow3.5-5.1The [facility] Physician GroupComment on above:Performed By: #### LISA HAIR CBCNO ####[address] [address] USASodium [Moles/Vol]140 mmol/L Hjotvb155-396Hbt [facility] Physician GroupComment on above:Performed By: #### LISA HAIR CBCNO ####[place] [address] [place] [address] USAUrea nitrogen [Mass/Vol]19 mg/dLNormal7-25The [facility] Comment on above:Performed By: #### LISA HAIR CBCNO ####[address] [address] USACalcium [Mass/volume] in Serum or PlasmaOrdered By: Yamila Donald on 39-22-1598Ggquucz [Mass/Vol]Calcium [Mass/volume] in Serum or Plasma8.6-10.3FAdena Regional Medical CenterCarbon dioxide, total [Moles/volume] in Serum or PlasmaOrdered By: Yamila Donald on 79-65-3795EX5 [Moles/Vol]Carbon dioxide, total [Moles/volume] in Serum or Plasma 21.0-31.0The [facility] SouthwoodsChloride [Moles/volume] in Serum or PlasmaOrdered By: Yamila Donald on 87-19-8100Qykrwckq [Moles/Vol]Chloride [Moles/volume] in Serum or Fluxyv77-121FszqoypqjThe [facility] Hospital [facility]woods Creatinine [Mass/volume] in Serum or PlasmaOrdered By: Yamila Donald on 51-22-8727Objisruyuq [Mass/Vol]Creatinine [Mass/volume] in Serum or Plasma 0.70-1.30The [facility] SouthwoodsErythrocyte distribution width Auto (RBC) [Ratio]Ordered By: Yamila Donald on 56-63-3810Bnrkxuignlb distribution width (RBC) [Ratio]Erythrocyte distribution width [Ratio] by Automated count 12.0-14.8The [facility] SouthwoodsGlucose [Mass/volume] in Serum or PlasmaOrdered By: Yamila Donald on 79-24-8235Vabqtqc [Mass/Vol]Glucose [Mass/volume] in Serum or CnpvnjBuro68-428DwaykhnvnThe [facility] Comment on above:ADA recommended reference rangeRandom Glucose Reference Range is dependent on time and content of last meal. Glucose of more than 200 mg/dL in a nonstressed, ambulatory subject supports the diagnosisof Diabetes Mellitus. Hematocrit Auto (Bld) [Volume fraction]Ordered By: Yamila Donald on 11-19-2024 Hematocrit (Bld) [Volume fraction]Hematocrit [Volume Fraction] of Blood by Automated count38.8-50.0The [facility] SouthwoodsHemoglobin [Mass/volume] in BloodOrdered By: Yamila Donald on 51-86-8870Mxhycpdiii (Bld) [Mass/Vol]Hemoglobin [Mass/volume] in Blood13.0-17.0The [facility] SouthwoodsHemogram CBC Without Diffon 84-40-1426Owuakrqjvtg distribution width (RBC) [Ratio]13.7 %Ewtqdx73.0-14.8The [facility] Physician GroupComment on above: Performed By: #### MG, BMP, CBCNO ####[address] [address] USAHematocrit (Bld) [Volume fraction]45.8 %Normal 38.8-50.0The [facility] Physician GroupComment on above:Performed By: #### MG, BMP, CBCNO ####[place] [address] USAHemoglobin (Bld) [Mass/Vol]15.4 g/oWYjaykf98.0-17.0The [facility] Physician GroupComment on above:Performed By: #### MG, BMP, CBCNO ####[address] [address] [facility] (RBC) [Entitic mass]29.0 rnQhulvr22.5-35.2The [facility] Physician GroupComment on above:Performed By: #### MG, BMP, CBCNO ####[place] [address] [facility] SH[facility]EEV (RBC) [Entitic vol]86.4 aKQlbdtl86.5-101The [facility] Physician GroupComment on above:Performed By: #### MG, BMP, CBCNO ####[place] [address] USAMean Corpuscular HGB Conc33.5 g/tOUakewl00.5-35.6The [facility] Physician GroupComment on above:Performed By: #### MG, BMP, CBCNO ####[place] [address] USAPlatelet mean volume (Bld) [Entitic vol]7.9 fLNormal6.6-10.1The [facility] Physician GroupComment on above:Result Comment: PERFORMED BY:[address] [place], [place] [phone] MEDICAL DIRECTORVÍCTOR LUCERO M.D.Performed By: #### MG, BMP, CBCNO ####[place] [address] [place] [address] [place] Platelets (Bld) [#/Vol]203 10*3/nFIbfxok745-589Itz [facility]ician Group Comment on above:Performed By: #### MG, BMP, CBCNO ####[facility] [address] [place] [address] USARBC (Bld) [#/Vol]5.31 10*6/uL Normal3.90-5.60The [facility] Physician GroupComment on above:Performed By: #### MG, BMP, CBCNO ####[facility] [address] [place] [address] USAWBC (Bld) [#/Vol]8.2 10*3/uLNormal4.1-10.5The [facility] Physician Group Comment on above:Performed By: #### MG, BMP, CBCNO ####[facility] [address] [place] [address] USALeukocytes [#/volume] corrected for nucleated erythrocytes in Blood by Automated counOrdered By: Yamila Donald on 19-28-3293EJR corrected for nucl RBC Auto (Bld) [#/Vol] Leukocytes [#/volume] corrected for nucleated erythrocytes in Blood by Automated coun4.1-10.5FProMedica Bay Park HospitalH Auto (RBC) [Entitic mass] Ordered By: Yamila Donald on 04-41-5215ABJ (RBC) [Entitic mass]MCH [Entitic mass] by Automated count27.5-35.2FAdena Regional Medical CenterMCHC Auto (RBC) [Mass/Vol]Ordered By: Yamila Donald on 77-78-6139HHKL (RBC) [Mass/Vol] MCHC [Mass/volume] by Automated count32.5-35.6FAdena Regional Medical Center MCV Auto (RBC) [Entitic vol]Ordered By: Yamila Donald on 93-16-3169DHV (RBC) [Entitic vol]MCV [Entitic volume] by Automated count83.5-101The [facility] SouthwoodsMR head/brain wo conon 04-03-6856MG head/brain wo conNormalThe [facility] Physician GroupMagnesiumon 42-11-4300Yvsfyyopy [Mass/Vol]1.7 mg/dLLow 1.9-2.7The [facility] Physician GroupComment on above:Result Comment: PERFORMED BY:[facility] [place], [place] [address], [place] [phone] MEDICAL DIRECTORVÍCTOR LUCERO M.D.Performed By: #### MG, BMP, CBCNO ####[facility] [place] [address] USAMagnesium [Mass/volume] in Serum or PlasmaOrdered By: Yamila Donald on 64-30-0055Auvvbbtgs [Mass/Vol]Magnesium [Mass/volume] in Serum or PlasmaLow 1.9-2.7FAdena Regional Medical CenterMagnetic resonance imaging reportOrdered By: Regino Mckinley on 67-75-7664Rjwjh reportSOUTHVIEW MEDICAL [facility]ENTER Main [place] [address] [place] [address] MRI Report Signed Patient: Aaron Olivarez MR#: [id number] : 1960 Acct:[id number] Age/Sex: 64 / M ADM Date: 5 Loc: Room: [address] [place] [address] Type: ADM IN Attending Dr: Yamila Donald [...] Regino Mckinley M.D.11/19/2024 4:50 PM Dictation Location: [place] [address] Transcribed By: YNES 11/19/24 165 Dictated By: Regino Mckinley MD 11/19/24 164 Signed By: 11/19/24 165 [facility] Work Phone: no Panel InformationOrdered By: Yamila Donald on 33-68-5388Dybmlvnhx GFR (CKD-EPI)> 60.0 mL/MinThe [facility] Creatinine Clearance (Chem98.46[facility] Platelet mean volume Auto (Bld) [Entitic vol]Ordered By: Yamila Donald on 48-04-5685Ccplznre mean volume (Bld) [Entitic vol]Platelet mean volume [Entitic volume] in Blood by Automated count6.6-10.1FAdena Regional Medical Center Platelets Auto (Bld) [#/Vol]Ordered By: Yamila Donald on 35-48-3317Yidnydyne (Bld) [#/Vol]Platelets [#/volume] in Blood by Automated atlkm958-576TtwixtfmwThe Surgical Hospital At SouthwoodsPotassium [Moles/volume] in Serum or PlasmaOrdered By: Yamila Donald on 77-60-7158Ijjxcvrhc [Moles/Vol]Potassium [Moles/volume] in Serum or PlasmaLow3.5-5.1FAdena Regional Medical CenterRBC Auto (Bld) [#/Vol] Ordered By: Yamila Donald on 95-09-1352DNF (Bld) [#/Vol]Erythrocytes [#/volume] in Blood by Automated count3.90-5.60[facility] Community Hospitalerum or plasma anion gap determinationOrdered By: Yamila Donald on 32-79-0027Vxudh gap [Moles/Vol]Serum or plasma anion gap determination6.0-15.0[facility] Hospitalodium [Moles/volume] in Serum or PlasmaOrdered By: Yamila Donald on 68-60-8919Ccjoca [Moles/Vol]Sodium [Moles/volume] in Serum or Gamhur297-320 [facility] SouthwoodsUrea nitrogen [Mass/volume] in Serum or Plasma Ordered By: Yamila Donald on 04-68-3189Wedd nitrogen [Mass/Vol]Urea nitrogen [Mass/volume] in Serum or Plasma7-25The [facility] SouthwoodsAlanine aminotransferase [Enzymatic activity/volume] in Serum or PlasmaOrdered By: Chaz Frey on 99-82-9383OGA [Catalytic activity/Vol]Alanine aminotransferase [Enzymatic activity/volume] in Serum or Plasma7-52The [facility] SouthwoodsAlbumin [Mass/volume] in Serum or Plasma by Bromocresol green (BCG) dye binding methoOrdered By: Chaz Frey on 05-42-1473Fecimmy BCG dye [Mass/Vol] Albumin [Mass/volume] in Serum or Plasma by Bromocresol green (BCG) dye binding metho3.5-5.7FAdena Regional Medical CenterAlkaline phosphatase [Enzymatic activity/volume] in Serum or PlasmaOrdered By: Chaz Frey on 02-17-0680YQE [Catalytic activity/Vol]Alkaline phosphatase [Enzymatic activity/volume] in Serum or Rqvwat35-201JneegdywgThe Surgical Hospital At SouthwoodsAspartate aminotransferase [Enzymatic activity/volume] in Serum or PlasmaOrdered By: Chaz Frey on 05-72-7841HHM [Catalytic activity/Vol]Aspartate aminotransferase [Enzymatic activity/volume] in Serum or Mdjvxk80-26FgtbtwlgxThe [facility]woods Basophils Auto (Bld) [#/Vol]Ordered By: Chaz Frey on 41-81-7358Pbjzsixjg (Bld) [#/Vol]Automated basophil count0.0-0.2FAdena Regional Medical Center Basophils/100 WBC Auto (Bld)Ordered By: Chaz Frey on 16-98-4410Plqhbfwgo/100 WBC (Bld)Automated basophil %.The [facility] SouthwoodsBilirubin.total [Mass/volume] in Serum or PlasmaOrdered By: Cahz Frey on 22-16-1949Mmbecgiux [Mass/Vol]Bilirubin.total [Mass/volume] in Serum or PlasmaHigh0.3-1.0The [facility] SouthwoodsCalcium [Mass/volume] in Serum or PlasmaOrdered By: Chaz Frey on 11-10-7187Mfeqoin [Mass/Vol]Calcium [Mass/volume] in Serum or Plasma 8.6-10.3FAdena Regional Medical CenterCarbon dioxide, total [Moles/volume] in Serum or PlasmaOrdered By: Chaz Frey on 01-94-7141RL7 [Moles/Vol]Carbon dioxide, total [Moles/volume] in Serum or GfbwfiPtvi73.0-31.0The [facility] Hospital [facility] SouthwoodsChloride [Moles/volume] in Serum or PlasmaOrdered By: Chaz Frey on 52-34-6152Dqpcitve [Moles/Vol]Chloride [Moles/volume] in Serum or Wipkhf88-598CmyojcxrcThe Surgical Hospital At SouthwoodsComplete Blood Count Auto Diffon 40-94-2516Fgrngbujj (Bld) [#/Vol]0.0 10*3/uLNormal0.0-0.2The [facility] Physician [facility] HospitalComment on above:Result Comment: PERFORMED BY:[address] [place], [place] [phone] MEDICAL DIRECTORVÍCTOR LUCERO M.D.Performed By: #### HS TROP, PRL, CMP, CBC ####[address] [address] [place] Basophils/100 WBC (Bld)0.6 %Normal.The [facility] Physician GroupComment on above:Performed By: #### HS TROP, PRL, CMP, CBC ####[address] [address] USAEosinophils (Bld) [#/Vol]0.0 10*3/uL Normal0.0-0.45The [facility] Physician GroupComment on above:Performed By: #### HS TROP, PRL, CMP, CBC ####[place] [address] USAEosinophils/100 WBC (Bld)0.1 %Normal.The [facility] Physician GroupComment on above:Performed By: #### HS TROP, PRL, CMP, CBC ####[address] Erythrocyte distribution width (RBC) [Ratio]13.3 %Yxxzah31.0-14.8The [facility] Physician GroupComment on above:Performed By: #### HS TROP, PRL, CMP, CBC ####[address] Hematocrit (Bld) [Volume fraction]43.0 %Mqjaij17.8-50.0The [facility] Physician GroupComment on above:Performed By: #### HS TROP, PRL, CMP, CBC ####[place] [address] USAHemoglobin (Bld) [Mass/Vol]14.6 g/yUYisigt85.0-17.0The [facility] Physician GroupComment on above: Performed By: #### HS TROP, PRL, CMP, CBC ####[place] [address] USALymphocytes (Bld) [#/Vol]1.4 10*3/uLNormal 1.00-4.8The [facility] Physician GroupComment on above:Performed By: #### HS TROP, PRL, CMP, CBC ####[place] [address] USALymphocytes/100 WBC (Bld)20.9 %Normal.The [facility] Comment on above:Performed By: #### HS TROP, PRL, CMP, CBC ####[place] [address] USAMCH (RBC) [Entitic mass]29.1 xuTvixee97.5-35.2The [facility] Physician GroupComment on above: Performed By: #### HS TROP, PRL, CMP, CBC ####[place] [id number] USAMCV (RBC) [Entitic vol]85.8 zVKnoshe52.5-101 The [facility] Physician GroupComment on above:Performed By: #### HS TROP, PRL, CMP, CBC ####[place] [address] USAMean Corpuscular HGB Conc33.9 g/eJJgmzgv78.5-35.6The [facility] Physician GroupComment on above:Performed By: #### HS TROP, PRL, CMP, CBC ####[place] [address] USAMonocytes (Bld) [#/Vol]0.6 10*3/uLNormal0.0-0.8The [facility] Physician GroupComment on above: Performed By: #### HS TROP, PRL, CMP, CBC ####[place] [address] USAMonocytes/100 WBC (Bld)8.5 %Normal.The [facility] Physician GroupComment on above:Performed By: #### HS TROP, PRL, CMP, CBC ####[place] [address] [place] Neutrophils (Bld) [#/Vol]4.7 10*3/uLNormal1.8-7.7The [facility] Comment on above:Performed By: #### HS TROP, PRL, CMP, CBC ####[place] [address] USANeutrophils/100 WBC (Bld)69.9 %Normal.The [facility] Physician GroupComment on above:Performed By: #### HS TROP, PRL, CMP, CBC ####[place] [address] USANRBC%0.1 /100{WBC}Normal0-0.5The [facility] Physician GroupComment on above:Performed By: #### HS TROP, PRL, CMP, CBC ####[place] [address] USAPlatelet mean volume (Bld) [Entitic vol]7.6 fLNormal6.6-10.1The [facility] Physician GroupComment on above:Performed By: #### HS TROP, PRL, CMP, CBC ####[address] [address] USAPlatelets (Bld) [#/Vol]216 10*3/uL Jjpuye353-928Nfg [facility] Physician GroupComment on above:Performed By: #### HS TROP, PRL, CMP, CBC ####[address] [address] USARBC (Bld) [#/Vol]5.01 10*6/uLNormal3.90-5.60The [facility] Physician GroupComment on above:Performed By: #### HS TROP, PRL, CMP, CBC ####[place] [address] USAWBC (Bld) [#/Vol]6.7 10*3/uLNormal4.1-10.5The [facility] Physician GroupComment on above:Performed By: #### HS TROP, PRL, CMP, CBC ####[place] [address] USAComprehensive Metabolic Panelon 65-40-4884Jfqmibv [Mass/Vol]3.9 g/dLNormal3.5-5.7The [facility] Comment on above:Performed By: #### HS TROP, PRL, CMP, CBC ####[place] [address] USAAlbumin/Globulin [Mass ratio]1.6 {ratio}NormalThe [facility] Physician GroupComment on above: Performed By: #### HS TROP, PRL, CMP, CBC ####[place] [address] USAALP [Catalytic activity/Vol]93 U/OYqihiy14-094 The [facility] Physician GroupComment on above:Performed By: #### HS TROP, PRL, CMP, CBC ####[place] [id number] USAALT [Catalytic activity/Vol]10 U/LNormal7-52The [facility] Comment on above:Performed By: #### HS TROP, PRL, CMP, CBC ####[place] [address] USAAnion gap [Moles/Vol] 9.7 mmol/LNormal6.0-15.0The [facility] Physician GroupComment on above:Performed By: #### HS TROP, PRL, CMP, CBC ####[place] [address] USAAST [Catalytic activity/Vol]16 U/SUbjaho95-90Lyz [facility] Hospital Physician GroupComment on above:Performed By: #### HS TROP, PRL, CMP, CBC ####[place] [address] [place] Bilirubin [Mass/Vol]1.2 mg/dLHigh0.3-1.0The [facility] Physician GroupComment on above:Performed By: #### HS TROP, PRL, CMP, CBC ####[place] [address] USACalcium [Mass/Vol]9.4 mg/dLNormal 8.6-10.3The [facility] Physician GroupComment on above:Performed By: #### HS TROP, PRL, CMP, CBC ####[place] [address] USAChloride [Moles/Vol]105 mmol/XPnhcjz24-808Esu [facility] Physician GroupComment on above:Performed By: #### HS TROP, PRL, CMP, CBC ####[place] [address] USACO2 [Moles/Vol]31.4 mmol/LHigh21.0-31.0The [facility] Physician GroupComment on above:Performed By: #### HS TROP, PRL, CMP, CBC ####[place] [address] USACreatinine [Mass/Vol]1.10 mg/dLNormal0.70-1.30The [facility] Physician GroupComment on above:Performed By: #### HS TROP, PRL, CMP, CBC ####[address] [place] [address] [place] Creatinine Clr Calc Jxcbvryn42.51NormalThe [facility] Physician GroupComment on above:Performed By: #### HS TROP, PRL, CMP, CBC ####[place] [address] USAGFR/1.73 sq M.predicted MDRD (S/P/Bld) [Vol rate/Area]mL/min/{1.73_m2}NormalThe [facility] Physician GroupComment on above:Performed By: #### HS TROP, PRL, CMP, CBC ####[place] [address] USAGlobulin (S) [Mass/Vol]2.4 g/dLNormal The [facility] Physician GroupComment on above:Performed By: #### HS TROP, PRL, CMP, CBC ####[place] [address] USAGlucose [Mass/Vol]113 mg/tLRflv62-566Bdn [facility] Physician GroupComment on above:Result Comment: Random Glucose Reference Range is dependent on time and content of last meal. Glucose of more than 200 mg/dL in a nonstressed, ambulatory subject supports the diagnosis of Diabetes Mellitus. ADA recommended reference rangePerformed By: #### HS TROP, PRL, CMP, CBC ####[place] [address] USAPotassium [Moles/Vol]4.1 mmol/LNormal3.5-5.1The [facility] Physician GroupComment on above:Performed By: #### HS TROP, PRL, CMP, CBC ####[place] [id number] USAProtein [Mass/Vol]6.3 g/dLLow6.4-8.9The [facility] Physician GroupComment on above:Performed By: #### HS TROP, PRL, CMP, CBC ####[place] [id number] USASodium [Moles/Vol]142 mmol/WCtcwmu738-404Btb [facility] Physician GroupComment on above: Performed By: #### HS TROP, PRL, CMP, CBC ####[facility] [address] [place] [address] USAUrea nitrogen [Mass/Vol]22 mg/dLNormal7-25The [facility] Physician GroupComment on above:Performed By: #### HS TROP, PRL, CMP, CBC ####[facility] [address] [place] [id number] [facility] Creatinine [Mass/volume] in Serum or PlasmaOrdered By: Chaz Frey on 46-15-7903Xmatfljcwt [Mass/Vol]Creatinine [Mass/volume] in Serum or Plasma 0.70-1.30The [facility]woodsECH echo transthoracicon 80-26-5463VEM echo transthoracicNoAdventHealth Hendersonville Physician GroupEosinophils Auto (Bld) [#/Vol]Ordered By: Chaz Frey on 22-98-0667Gkpskmpnwvi (Bld) [#/Vol]Automated eosinophil count0.0-0.45The [facility] SouthwoodsEosinophils/100 WBC Auto (Bld)Ordered By: Chaz Frey on 23-81-6742Bgjjgxamkom/100 WBC (Bld) Automated eosinophil %.[facility] SouthwoodsErythrocyte distribution width Auto (RBC) [Ratio]Ordered By: Chaz Frey on 86-79-3962Olwnutkbade distribution width (RBC) [Ratio]Erythrocyte distribution width [Ratio] by Automated count12.0-14.8The [facility] SouthwoodsGlobulin Calc (S) [Mass/Vol]Ordered By: Chaz Frey on 72-22-4452Mhkqsnuw (S) [Mass/Vol]Serum globulin measurement by calculation (mass/volume)[facility] SouthwoodsGlucose [Mass/volume] in Serum or PlasmaOrdered By: Chaz Frey on 82-48-2360Oqjrxed [Mass/Vol]Glucose [Mass/volume] in Serum or OyyczaCjbh34-447 [facility] SouthwoodsComment on above:ADA recommended reference rangeRandom Glucose Reference Range is dependent on time and content of last meal. Glucose of more than 200 mg/dL in a nonstressed, ambulatory subject supports the diagnosisof Diabetes Mellitus.Hematocrit Auto (Bld) [Volume fraction]Ordered By: Chaz Frey on 68-10-5873Gbqaaahsjx (Bld) [Volume fraction]Hematocrit [Volume Fraction] of Blood by Automated count38.8-50.0 [facility] SouthwoodsHemoglobin [Mass/volume] in BloodOrdered By: Chaz Frey on 38-41-7095Wzhufejcpr (Bld) [Mass/Vol]Hemoglobin [Mass/volume] in Blood13.0-17.0The [facility] SouthwoodsLeukocytes [#/volume] corrected for nucleated erythrocytes in Blood by Automated counOrdered By: Chaz Frey on 83-12-1589FHM corrected for nucl RBC Auto (Bld) [#/Vol]Leukocytes [#/volume] corrected for nucleated erythrocytes in Blood by Automated coun 4.1-10.5FAdena Regional Medical CenterLymphocytes Auto (Bld) [#/Vol]Ordered By: Chaz Frey on 98-90-6653Xthepfojwgc (Bld) [#/Vol]Lymphocytes [#/volume] in Blood by Automated count1.00-4.8[facility] Lymphocytes/100 WBC Auto (Bld)Ordered By: Chaz Frey on 11-18-2024 Lymphocytes/100 WBC (Bld)Lymphocytes/100 leukocytes in Blood by Automated count. [facility] SouthwoodsMCH Auto (RBC) [Entitic mass]Ordered By: Chaz Frey on 02-63-7496FDO (RBC) [Entitic mass]MCH [Entitic mass] by Automated count27.5-35.2FAdena Regional Medical CenterMCHC Auto (RBC) [Mass/Vol]Ordered By: Chaz Frey on 63-11-6005LBLE (RBC) [Mass/Vol]MCHC [Mass/volume] by Automated count32.5-35.6FAdena Regional Medical CenterMCV Auto (RBC) [Entitic vol]Ordered By: Chaz Frey on 78-81-5715SIS (RBC) [Entitic vol]MCV [Entitic volume] by Automated count83.5-101The [facility] SouthwoodsMonocytes Auto (Bld) [#/Vol]Ordered By: Chaz Frey on 97-97-4433Jjamcwnjn (Bld) [#/Vol] Automated blood monocyte count0.0-0.8[facility] Monocytes/100 WBC Auto (Bld)Ordered By: Chaz Frey on 79-04-4407Jaqiakhyt/100 WBC (Bld)Automated monocyte %.The [facility] SouthwoodsNeutrophils Auto (Bld) [#/Vol]Ordered By: Chaz Frey on 98-13-3642Quoikdyxsvh (Bld) [#/Vol] Neutrophils [#/volume] in Blood by Automated count1.8-7.7FAdena Regional Medical CenterNeutrophils/100 WBC Auto (Bld)Ordered By: Chaz Frey on 82-46-6295Sanwrlajqcl/100 WBC (Bld)Automated neutrophil %.[facility]woodsNo Panel InformationOrdered By: Chaz Frey on 11-18-2024 Estimated GFR (CKD-EPI)> 60.0 mL/MinThe Surgical Hospital At SouthwoodsPharmacy Creatinine Clearance (Chem72.51The [facility] SouthwoodsNucleated erythrocytes [Presence] in Blood by Automated countOrdered By: Chaz Frey on 19-03-8653Pkxoznwqa RBC Auto Ql (Bld)Nucleated erythrocytes [Presence] in Blood by Automated count0-0.5FAdena Regional Medical CenterPlatelet mean volume Auto (Bld) [Entitic vol]Ordered By: Chaz Frey on 19-39-1488Zienvaey mean volume (Bld) [Entitic vol]Platelet mean volume [Entitic volume] in Blood by Automated count6.6-10.1FAdena Regional Medical CenterPlatelets Auto (Bld) [#/Vol]Ordered By: Chaz Frey on 36-67-5716Evphsaywh (Bld) [#/Vol]Platelets [#/volume] in Blood by Automated xziiy759-325MrugksquqThe [facility] Hospital [facility]woods Potassium [Moles/volume] in Serum or PlasmaOrdered By: Chaz Frey on 71-90-9739Tkjcfzfls [Moles/Vol]Potassium [Moles/volume] in Serum or Plasma 3.5-5.1FAdena Regional Medical CenterProlactinon 30-15-9837Gshqyhgdp84.14 ng/mLHigh2.64-13.13The [facility] Physician GroupComment on above:Result Comment: PERFORMED BY:[place] [place] [address] [address] LIZARRAGASHARNEW [place], [place] [phone] MEDICAL DIRECTORVÍCTOR LUCERO M.D. Performed By: #### HS TROP, PRL, CMP, CBC ####[facility] [address] [place] [address] USAProlactin [Mass/volume] in Serum or Plasma Ordered By: Chaz Frey on 11-83-2980Hxaxztubj [Mass/Vol]Prolactin [Mass/volume] in Serum or PlasmaHigh2.64-13.13[facility] Protein [Mass/volume] in Serum or PlasmaOrdered By: Chaz Frey on 11-18-2024 Protein [Mass/Vol]Protein [Mass/volume] in Serum or PlasmaLow6.4-8.9The [facility] SouthwoodsRBC Auto (Bld) [#/Vol]Ordered By: Chaz Frey on 28-07-6005ERT (Bld) [#/Vol]Erythrocytes [#/volume] in Blood by Automated count 3.90-5.60[facility] Community Hospitalerum or plasma albumin/globulin mass ratioOrdered By: Chaz Frey on 12-08-9938Gmoaqtp/Globulin [Mass ratio]Serum or plasma albumin/globulin mass ratioAultman Alliance Community Hospitalerum or plasma anion gap determinationOrdered By: Chaz Frey on 64-34-3575Xntux gap [Moles/Vol]Serum or plasma anion gap determination6.0-15.0[facility] Hospitalodium [Moles/volume] in Serum or PlasmaOrdered By: Chaz Frey on 14-64-0666Rkwxic [Moles/Vol]Sodium [Moles/volume] in Serum or Hrcnik461-482 [facility] SouthwoodsTroponin I High Sensitivityon 11-18-2024 Troponin I High Xzkkfelliav06.6 pg/mLHigh0.0-20.0The [facility] Physician Group Comment on above:Result Comment: PERFORMED BY:[place] [place] [address] [address] LIZARRAGASHARNEW [place], [place] [phone] MEDICAL DIRECTORVÍCTOR LUCERO M.D.Performed By: #### HS TROP, PRL, CMP, CBC ####[facility] [address] Troponin I.cardiac [Mass/volume] in Serum or Plasma by Detection limit <= 0.01 ng/Ordered By: Chaz Frey on 02-48-2858Mgpqmcxg I.cardiac DL <= 0.01 ng/mL [Mass/Vol]Troponin I.cardiac [Mass/volume] in Serum or Plasma by Detection limit <= 0.01 ng/High0.0-20.0The [facility] SouthwoodsUrea nitrogen [Mass/volume] in Serum or PlasmaOrdered By: Chaz Frey on 76-91-1315Jaqd nitrogen [Mass/Vol]Urea nitrogen [Mass/volume] in Serum or Plasma7-25The [facility] SouthwoodsWBC Auto (Bld) [#/Vol]Ordered By: Chaz Frey on 32-23-2674MJC (Bld) [#/Vol]Leukocytes [#/volume] in Blood by Automated count 4.1-10.5FAdena Regional Medical CenterAmphetamine Screen Ql (U)Ordered By: Jamin Sepulveda on 96-81-5307Uayjplmicgaj Ql (U)Amphetamines screenHighNegative [facility] SouthwoodsAmphetamine cutoff [Mass/volume] in Urine for Confirmatory methodOrdered By: Chaz Frey on 88-22-8558Cuyqjukqyaq cutoff Confirm (U) [Mass/Vol]Amphetamine cutoff [Mass/volume] in Urine for Confirmatory zoifurSoiptm=206OyvzxibxkThe Surgical Hospital At SouthwoodsAmphetamine+Methamphetamine [Presence] in UrineOrdered By: Chaz Frey on 11-17-2024 Amphetamine+Methamphetamine Ql (U)Amphetamine+Methamphetamine [Presence] in TpxlwLwgjqjhmCjtnrq=6198Gsalogyxj Regional Medical CenterComment on above: Amphetamine test includes Amphetamine and Methamphetamine.Amphetamines [Presence] in UrineOrdered By: Chaz Frey on 72-50-4117Hldbizlsggxz Ql (U) Amphetamines [Presence] in UrineAbnormal.[facility] Amphetamines [Presence] in Urine by Screen methodOrdered By: Chaz Frey on 14-80-1177Qwaeyfwkuqal Screen Ql (U)Amphetamines [Presence] in Urine by Screen lpuzywAjaiqd=6913VawmrgafrThe Surgical Hospital [facility] SouthwoodsComment on above:Amphetamine test includes Amphetamine and Methamphetamine.Appearance of UrineOrdered By: Jamin Sepulveda on 19-34-6000Xguweqxaed (U)Urine appearanceCleParkview Health Bryan HospitalBacteria [Presence] in Urine by AutomatedOrdered By: Jamin Sepulveda on 04-58-8715Odncdfxj Auto Ql (U)Bacteria [Presence] in Urine by AutomatedNone SeenThe Surgical Hospital At SouthwoodsBarbiturates [Presence] in Urine by Screen methodOrdered By: Jamin Sepulveda on 59-33-0823Hvnhkkcfiyjx Screen Ql (U) Barbiturates [Presence] in Urine by Screen omokmdRnpkkr=308Wdaaxbtxj[address] [place], [place] [address]Benzodiazepines Screen Ql (U)Ordered By: Jamni Sepulveda on 23-89-4572Unzjyplumwbsjje Ql (U)Benzodiazepines [Presence] in Urine by Screen methodHighNegMercy Health West HospitalBenzodiazepines [Presence] in UrineOrdered By: Chaz Frey on 60-83-6269Lvimdmbhddqquml Ql (U) Benzodiazepines [Presence] in UpojrZtoasz=063Nqdqmjdbf[address] [place] [address] Benzoylecgonine [Presence] in Urine by Screen methodOrdered By: Jamin Sepulveda on 87-39-2922Gpgdsimknvjsnbv Screen Ql (U)Benzoylecgonine [Presence] in Urine by Screen methodNegMercy Health West HospitalBilirubin Test strip Ql (U)Ordered By: Jamin Sepulveda on 42-44-2335Qrreggilb Ql (U)Bilirubin.total [Presence] in Urine by Test stripNegMercy Health West HospitalCT angio neckon 84-51-9693CZ angio neckNoAdventHealth Hendersonville Physician GroupCT head stroke alert wo conon 36-14-5383KX head stroke alert wo conNLevine Children's Hospital Physician GroupCannabinoids [Mass/volume] in Urine by Confirmatory methodOrdered By: Chaz Frey on 53-25-8779Umjprjrphjqf Confirm (U) [Mass/Vol]Cannabinoids [Mass/volume] in Urine by Confirmatory methodCutoff=[address] [place], [place] [address]Cannabinoids [Presence] in Urine by Screen methodOrdered By: Jamin Sepulveda on 38-58-1195Tsixilvrlihg Screen Ql (U)Cannabinoids [Presence] in Urine by Screen methodCutoff=50The [facility] SouthwoodsComment on above:These are unconfirmed results and should not be used for legal purposes. Drug Cut-Off Concentration: AMPH 1000 ng/mL BHASKAR 200 ng/mL RIKKI 200 ng/mL COCM 300 ng/mL OP 300 ng/mL PCP 25 ng/mL THC 20 ng/mLColor Auto (U)Ordered By: Jamin Sepulveda on 68-06-5308Foyos (U)Color of Urine by AutoYellowThe Surgical Hospital [facility] Southwoods Complete Blood Count Auto Diffon 73-02-0887Eygcnhecv (Bld) [#/Vol]0.0 10*3/uL Normal0.0-0.2The [facility] Physician GroupComment on above:Result Comment: PERFORMED BY:[address] [place], [place] [phone] MEDICAL DIRECTORVÍCTOR LUCERO M.D. Performed By: #### PTT, CMP, PT, CBC, CK, PRL, HS TROP ####[place] [id number] USABasophils/100 WBC (Bld)0.4 % Normal.The [facility] Physician GroupComment on above:Performed By: #### PTT, CMP, PT, CBC, CK, PRL, HS TROP ####[place] [id number] USAEosinophils (Bld) [#/Vol]0.0 10*3/uLNormal0.0-0.45 The [facility] Physician GroupComment on above:Performed By: #### PTT, CMP, PT, CBC, CK, PRL, HS TROP ####[place] [address] USAEosinophils/100 WBC (Bld)0.1 %Normal.The [facility] Physician GroupComment on above:Performed By: #### PTT, CMP, PT, CBC, CK, PRL, HS TROP ####[address] Erythrocyte distribution width (RBC) [Ratio]13.6 %Unqttj06.0-14.8The [facility] Physician GroupComment on above:Performed By: #### PTT, CMP, PT, CBC, CK, PRL, HS TROP ####[address] Hematocrit (Bld) [Volume fraction]46.4 %Kuwxca19.8-50.0The [facility] Physician GroupComment on above:Performed By: #### PTT, CMP, PT, CBC, CK, PRL, HS TROP ####[address] Hemoglobin (Bld) [Mass/Vol]15.6 g/aPLhafaw73.0-17.0The [facility] Comment on above:Performed By: #### PTT, CMP, PT, CBC, CK, PRL, HS TROP ####[address] Lymphocytes (Bld) [#/Vol]0.4 10*3/uLLow1.00-4.8The [facility] Comment on above:Performed By: #### PTT, CMP, PT, CBC, CK, PRL, HS TROP ####[address] Lymphocytes/100 WBC (Bld)4.4 %Normal.The [facility] Physician GroupComment on above:Performed By: #### PTT, CMP, PT, CBC, CK, PRL, HS TROP ####[address]MCH (RBC) [Entitic mass]28.8 lnDtgrba21.5-35.2The [facility] Physician GroupComment on above: Performed By: #### PTT, CMP, PT, CBC, CK, PRL, HS TROP ####[address]MCV (RBC) [Entitic vol]85.6 fL Vudajs01.5-101The [facility] Physician GroupComment on above:Performed By: #### PTT, CMP, PT, CBC, CK, PRL, HS TROP ####[place] [address] USAMean Corpuscular HGB Conc33.6 g/aUKempdf79.5-35.6The [facility] Physician GroupComment on above:Performed By: #### PTT, CMP, PT, CBC, CK, PRL, HS TROP ####[place] [address] USAMonocytes (Bld) [#/Vol]0.3 10*3/uLNormal0.0-0.8The [facility] Physician GroupComment on above:Performed By: #### PTT, CMP, PT, CBC, CK, PRL, HS TROP ####[place] [address] [place] Monocytes/100 WBC (Bld)15.39 %Normal0.00-20.00The [facility] Comment on above:Performed By: #### PTT, CMP, PT, CBC, CK, PRL, HS TROP ####[place] [address] [place] Monocytes/100 WBC (Bld)3.3 %Normal.The [facility] Physician GroupComment on above:Performed By: #### PTT, CMP, PT, CBC, CK, PRL, HS TROP ####[place] [address] USANeutrophils (Bld) [#/Vol]9.2 10*3/uLHigh1.8-7.7The [facility] Physician GroupComment on above: Performed By: #### PTT, CMP, PT, CBC, CK, PRL, HS TROP ####[place] [address] USANeutrophils/100 WBC (Bld)91.8 % Normal.The [facility] Physician GroupComment on above:Performed By: #### PTT, CMP, PT, CBC, CK, PRL, HS TROP ####[place] [address] USANRBC%0.1 /100{WBC}Normal0-0.5The [facility] Physician GroupComment on above:Performed By: #### PTT, CMP, PT, CBC, CK, PRL, HS TROP ####[place] [address] USAPlatelet mean volume (Bld) [Entitic vol]7.3 fLNormal6.6-10.1The [facility] Physician GroupComment on above:Performed By: #### PTT, CMP, PT, CBC, CK, PRL, HS TROP ####[place] [address] [place] Platelets (Bld) [#/Vol]280 10*3/wWYwdvky449-222Aqg [facility] Comment on above:Performed By: #### PTT, CMP, PT, CBC, CK, PRL, HS TROP ####[place] [address] USARBC (Bld) [#/Vol]5.42 10*6/uLNormal3.90-5.60The [facility] Physician GroupComment on above:Performed By: #### PTT, CMP, PT, CBC, CK, PRL, HS TROP ####[place] [address] USAWBC (Bld) [#/Vol]10.1 10*3/uLNormal4.1-10.5The [facility] Physician GroupComment on above:Performed By: #### PTT, CMP, PT, CBC, CK, PRL, HS TROP ####[place] [address] USAComprehensive Metabolic Panelon 11-17-2024 Albumin [Mass/Vol]4.2 g/dLNormal3.5-5.7The [facility] Physician GroupComment on above:Performed By: #### PTT, CMP, PT, CBC, CK, PRL, HS TROP ####[address] [place] [address] USAAlbumin/Globulin [Mass ratio]1.7 {ratio}NormalThe [facility] Physician GroupComment on above:Performed By: #### PTT, CMP, PT, CBC, CK, PRL, HS TROP ####[place] [address] USAALP [Catalytic activity/Vol]95 U/L Xmxsbg43-328Coy [facility] Physician GroupComment on above:Performed By: #### PTT, CMP, PT, CBC, CK, PRL, HS TROP ####[place] [address] USAALT [Catalytic activity/Vol]12 U/LNormal7-52The [facility] Physician GroupComment on above:Performed By: #### PTT, CMP, PT, CBC, CK, PRL, HS TROP ####[place] [address] USAAnion gap [Moles/Vol]13.0 mmol/LNormal6.0-15.0The [facility] Physician GroupComment on above:Performed By: #### PTT, CMP, PT, CBC, CK, PRL, HS TROP ####[place] [address] USAAST [Catalytic activity/Vol]24 U/UCgtkbi82-55Kti [facility] Physician GroupComment on above:Performed By: #### PTT, CMP, PT, CBC, CK, PRL, HS TROP ####[place] [address] USABilirubin [Mass/Vol] 0.6 mg/dLNormal0.3-1.0The [facility] Physician GroupComment on above:Performed By: #### PTT, CMP, PT, CBC, CK, PRL, HS TROP ####[place] [address] USACalcium [Mass/Vol]9.1 mg/dLNormal 8.6-10.3The [facility] Physician GroupComment on above:Performed By: #### PTT, CMP, PT, CBC, CK, PRL, HS TROP ####[place] [address] [place] [id number] USAChloride [Moles/Vol]104 mmol/KNtcvua45-267Zny [facility] Physician GroupComment on above:Performed By: #### PTT, CMP, PT, CBC, CK, PRL, HS TROP ####[place] [address] [place] [id number] USACO2 [Moles/Vol]29.2 mmol/KGuhhhu38.0-31.0The [facility] Comment on above:Performed By: #### PTT, CMP, PT, CBC, CK, PRL, HS TROP ####[address] [place] [address] [place] Creatinine [Mass/Vol]1.27 mg/dLNormal0.70-1.30The [facility] Physician [facility] Comment on above:Performed By: #### PTT, CMP, PT, CBC, CK, PRL, HS TROP ####[place] [id number] USAGFR/1.73 sq M.predicted MDRD (S/P/Bld) [Vol rate/Area]mL/min/{1.73_m2}NormalThe [facility] Physician GroupComment on above:Performed By: #### PTT, CMP, PT, CBC, CK, PRL, HS TROP ####[place] [address] USAGlobulin (S) [Mass/Vol]2.5 g/dLNormalThe [facility] Physician [facility] Comment on above:Performed By: #### PTT, CMP, PT, CBC, CK, PRL, HS TROP ####[place] [address] USAGlucose [Mass/Vol]163 mg/lUQyau37-567Jfp [facility] Physician GroupComment on above: Result Comment: Random Glucose Reference Range is dependent on time and content of last meal. Glucose of more than 200 mg/dL in a nonstressed, ambulatory subject supports the diagnosis of Diabetes Mellitus. ADA recommended reference rangePerformed By: #### PTT, CMP, PT, CBC, CK, PRL, HS TROP ####[address] [place] [address] USAPotassium [Moles/Vol] 4.2 mmol/LNormal3.5-5.1The [facility] Physician GroupComment on above:Performed By: #### PTT, CMP, PT, CBC, CK, PRL, HS TROP ####[place] [place] [address] USAProtein [Mass/Vol]6.7 g/dLNormal6.4-8.9 The [facility] Physician GroupComment on above:Performed By: #### PTT, CMP, PT, CBC, CK, PRL, HS TROP ####[place] [place] [address] USASodium [Moles/Vol]142 mmol/VGuhasa849-513Dwu [facility] Physician GroupComment on above:Performed By: #### PTT, CMP, PT, CBC, CK, PRL, HS TROP ####[place] [address] USAUrea nitrogen [Mass/Vol]16 mg/dLNormal7-25The [facility] Comment on above:Performed By: #### PTT, CMP, PT, CBC, CK, PRL, HS TROP ####[place] [address] USACreatine Kinaseon 76-45-7910ED [Catalytic activity/Vol]134 U/SPsgsqy07-436Iee [facility] Physician GroupComment on above:Performed By: #### PTT, CMP, PT, CBC, CK, PRL, HS TROP ####[place] [address] [place] Creatine kinase [Enzymatic activity/volume] in Serum or PlasmaOrdered By: Jamin Sepulveda on 39-85-2464SM [Catalytic activity/Vol]Creatine kinase [Enzymatic activity/volume] in Serum or Yzmypu14-382TmmgrqvhbThe [facility]woods Dipstick and Microscopicon 79-83-9949Wffmtfqjgj (U)ClearNormalClearThe [facility] Physician GroupComment on above:Order Comment: Name Collection Type:: Clean- Voided MidstreamPerformed By: #### URDS, ADDONUAPLUS ####[address] [place] [address] USABacteria,UrineNone SeenNormal None SeenHca Florida [facility]ce[facility] Hospital Physician GroupComment on above:Order Comment: Name Collection Type:: Clean-Voided MidstreamPerformed By: #### URDS, ADDONUAPLUS ####[address] [address] [place] Bilirubin,UrineNegativeNormalNegativeHca [facility] Hospital Physician GroupComment on above:Order Comment: Name Collection Type:: Clean-Voided MidstreamPerformed By: #### URDS, ADDONUAPLUS ####[address] [address] USAColor (U)YellowNormalYellowHca Florida Osceola Hospital Physician GroupComment on above:Order Comment: Name Collection Type:: Clean-Voided MidstreamPerformed By: #### URDS, ADDONUAPLUS ####[address] [address] USAGlucose Ql (U)70 mg/dLHighNormDeSoto Memorial Hospital Physician GroupComment on above:Order Comment: Name Collection Type:: Clean-Voided MidstreamPerformed By: #### URDS, ADDONUAPLUS ####[address] [address] USAHyaline Casts,Urine NoneNormal0-8The [facility] Physician GroupComment on above:Order Comment: Name Collection Type:: Clean-Voided MidstreamPerformed By: #### URDS, ADDONUAPLUS ####[address] [place] [address] USAKetones Ql (U)NegativeNormalNegativeHca Florida Osceola Hospital Physician GroupComment on above:Order Comment: Name Collection Type:: Clean-Voided MidstreamPerformed By: #### URDS, ADDONUAPLUS ####[address] [address] USALeukocyte esterase Test strip Ql (U)NegativeNormalNegativeHca Florida Osce[facility] Hospital Physician GroupComment on above:Order Comment: Name Collection Type:: Clean- Voided MidstreamPerformed By: #### URDS, ADDONUAPLUS ####[address] [address] USAMucus,UrineRareNormalThe [facility] Physician GroupComment on above:Order Comment: Name Collection Type:: Clean-Voided MidstreamResult Comment: PERFORMED BY:[address] [place], [place] [phone] MEDICAL DIRECTORVÍCTOR LUCERO M.D.Performed By: #### URDS, ADDONUAPLUS ####[address] [address] [place] Nitrite,UrineNegativeNormalNegativeThe [facility] Physician GroupComment on above:Order Comment: Name Collection Type:: Clean-Voided MidstreamPerformed By: #### URDS, ADDONUAPLUS ####[address] [address] USAOccult Blood,UrineNegativeNormalNegativeThe [facility] Physician GroupComment on above:Order Comment: Name Collection Type:: Clean-Voided MidstreamPerformed By: #### URDS, ADDONUAPLUS ####[address] [address] USApH (U)6.5 [pH]Normal 5.0-9.0The [facility] Physician GroupComment on above:Order Comment: Name Collection Type:: Clean-Voided MidstreamPerformed By: #### URDS, ADDONUAPLUS ####[address] [address] USAProtein (U) [Mass/Vol]70 mg/dLHighNegativeThe [facility] Physician GroupComment on above:Order Comment: Name Collection Type:: Clean-Voided MidstreamPerformed By: #### URDS, ADDONUAPLUS ####[address] [address] USARBC,Urine3 [HPF]Normal0-4The [facility] Physician GroupComment on above:Order Comment: Name Collection Type:: Clean-Voided MidstreamPerformed By: #### URDS, ADDONUAPLUS ####[address] [address] USASpecificy Caret,Urine>1.050High 1.001-1.030The [facility] Physician GroupComment on above:Order Comment: Name Collection Type:: Clean-Voided MidstreamResult Comment: Rechecked by refractometerPerformed By: #### URDS, ADDONUAPLUS ####[address] [address] USASquamous Epithelial Cell,Urine1 [HPF] Normal0-2The [facility] Physician GroupComment on above:Order Comment: Name Collection Type:: Clean-Voided MidstreamPerformed By: #### URDS, ADDONUAPLUS ####[address] [address] [place] Urobilinogen,UrineNormalNormalNormalThe [facility] Physician GroupComment on above:Order Comment: Name Collection Type:: Clean-Voided MidstreamPerformed By: #### URDS, ADDONUAPLUS ####[address] [address] USAWBC,Urine1 [HPF]Normal0-4The [facility] Physician GroupComment on above:Order Comment: Name Collection Type:: Clean-Voided MidstreamPerformed By: #### URDS, ADDONUAPLUS ####[address] [address] USADrug Screen,Urineon 11-17-2024 Amphetamine Screen,UrinePositiveHighNegativeThe [facility] Physician GroupComment on above:Performed By: #### URDS, ADDONUAPLUS ####[address] [address] USABarbiturate Screen,UrineNegativeNormal NegativeThe [facility] Physician GroupComment on above:Performed By: #### URDS, ADDONUAPLUS ####[address] [address] USABenzodiazepines Screen,UrinePositiveHighNegativeThe [facility] Physician GroupComment on above:Performed By: #### ОЛЬГА, ADDONUAPLUS ####[address] [address] USACannabinoid Screen,UrinePositiveHighNegativeHca [facility] Physician [facility] HospitalComment on above: Result Comment: These are unconfirmed results and should not be used for legal purposes. Drug Cut-Off Concentration: AMPH 1000 ng/mL BHASKAR 200 ng/mL RIKKI 200 ng/mL COCM 300 ng/mL OP 300 ng/mL PCP 25 ng/mL THC 20 ng/mLPERFORMED BY:[address] [place], [place] [phone] MEDICAL DIRECTORVÍCTOR LUCERO M.D.Performed By: #### ОЛЬГА, ADDONUAPLUS ####[place] [id number] USACocaine Screen,UrineNegativeNormalNegativeThe [facility] Physician [facility] HospitalComment on above:Performed By: #### ОЛЬГА, ADDONUAPLUS ####[address] [address] USAOpiate Screen,Urine NegativeNormalNegativeThe Jefferson HealthComment on above:Performed By: #### ОЛЬГА, ADDONUAPLUS ####[address] [address] USAPhencyclidine Screen,UrineNegativeNormalNegativeThe Jefferson HealthComment on above:Performed By: #### ОЛЬГА, ADDONUAPLUS ####[address] [address] USAECG 12 lead ECGon 55-89-8367LGE 12 lead ECGNormalThe [facility] Physician [facility] Epithelial cells.squamous [#/area] in Urine sediment by Automated countOrdered By: Jamin Sepulveda on 49-08-0079Gfetaeenrw cells.squamous Auto (Urine sed) [#/Area]Epithelial cells.squamous [#/area] in Urine sediment by Automated count 0-2FAdena Regional Medical CenterErythrocyte Sedimentation Rateon 11-17-2024 ESR (Bld) [Velocity]2 mm/hNormal0-19The [facility] Physician GroupComment on above:Result Comment: PERFORMED BY:[place] [address] [address] [place], [place] [phone] MEDICAL DIRECTORVÍCTOR ARSHAD M.D.Performed By: #### B12, ESR, HS TROP ####[address] [address] USAErythrocyte sedimentation rate by Photometric methodOrdered By: Chaz Frye on 10-35-3310WPX Photometric method (Bld) [Velocity]Erythrocyte sedimentation rate by Photometric method0 [facility] SouthwoodsErythrocytes [#/area] in Urine sediment by Automated countOrdered By: Jamin Sepulveda on 87-47-1425CTW Auto (Urine sed) [#/Area]Erythrocytes [#/area] in Urine sediment by Automated count0Adena Regional Medical CenterEthanol [Mass/volume] in Serum or PlasmaOrdered By: Jamin Sepulveda on 60-22-3767Sykeeab [Mass/Vol]Ethanol [Mass/volume] in Serum or PlasmaThe Surgical Hospital At SouthwoodsComment on above:Test not performedEthyl Alcohol Profileon 39-76-7598Jkclrff [Mass/Vol]mg/dLNoAdventHealth Hendersonville Physician GroupComment on above:Performed By: #### ETOH ####[address] [address] USAPercent EthanolNot performedNoAdventHealth Hendersonville Physician GroupComment on above:Result Comment: PERFORMED BY:[place] [place] [address] [address] [place], [place] [phone] MEDICAL DIRECTORVÍCTOR LUCERO M.D.Performed By: #### ETOH ####[address] [address] USAGlucose Glucometer (BldC) [Mass/Vol]Ordered By: Jamin Sepulveda on 20-78-5182Raxvvph [Mass/Vol]Capillary blood glucose measurement by glucometer (mass/volume) The [facility] SouthwoodsComment on above:Random Glucose Reference Range is dependent on time and content of last meal. Glucose of more than 200 mg/dL in a nonstressed, ambulatory subject supports the diagnosis of Diabetes Mellitus.Glucose Poct Glucometerson 62-63-9264Wagghic [Mass/Vol]175 mg/dLNormal The [facility] Physician GroupComment on above:Result Comment: Random Glucose Reference Range is dependent on time and content of last meal. Glucose of more than 200 mg/dL in a nonstressed, ambulatory subject supports the diagnosis of Diabetes Mellitus.PERFORMED BY:[place] [place], [place] [phone] MEDICAL DIRECTORVÍCTOR ARSHAD M.D.Performed By: #### GLULS ####Point of Care testing,Glucose [Mass/volume] in Urine by Test stripOrdered By: Jamin Sepulveda on 11-17-2024 Glucose Test strip (U) [Mass/Vol]Glucose [Mass/volume] in Urine by Test strip HighThe Surgical Hospital at SouthwoodsHemoglobin Test strip Ql (U)Ordered By: Jamin Sepulveda on 72-85-1455Gghlxlwqxr Ql (U)Hemoglobin [Presence] in Urine by Test stripNegMercy Health West HospitalHyaline casts [#/area] in Urine sediment by Automated countOrdered By: Jamin Sepulveda on 13-01-9237Juwvdsm casts Auto (Urine sed) [#/Area]Hyaline casts [#/area] in Urine sediment by Automated count0-8The [facility] SouthwoodsINR in Platelet poor plasma by Coagulation assayOrdered By: Jamin Sepulveda on 18-42-0775NQS Coag (PPP) [Relative time]INR in Platelet poor plasma by Coagulation assayThe [facility] Hospital At SouthwoodsComment on above:INR Therapeutic Range A) Pre- and [...] strip Ql (U)Ordered By: Jamin Sepulveda on 47-80-1856Bqewjes Ql (U)Ketones [Presence] in Urine by Test stripNegativeThe [facility] Hospital [facility] SouthwoodsLeukocyte esterase [Presence] in Urine by Test stripOrdered By: Jamin Sepulveda on 97-25-7051Yiqxpwjyf esterase Test strip Ql (U)Leukocyte esterase [Presence] in Urine by Test stripNegative The [facility] SouthwoodsLeukocytes [#/area] in Urine sediment by Automated countOrdered By: Jamin Sepulveda on 19-70-4599EKJ Auto (Urine sed) [#/Area]Leukocytes [#/area] in Urine sediment by Automated count0-4FAdena Regional Medical CenterMagnesiumon 70-74-1263Kxfraieqv [Mass/Vol]1.9 mg/dLNormal 1.9-2.7The [facility] Physician GroupComment on above:Order Comment: Comment add onResult Comment: PERFORMED BY:[facility] [place] [address] [place], [place] [phone] MEDICAL DIRECTORVÍCTOR ARSHAD M.D.Performed By: #### MG ####[address] [address] USAMagnesium [Mass/volume] in Serum or PlasmaOrdered By: Chaz Palafox on 81-62-8704Kmjjhuchv [Mass/Vol]Magnesium [Mass/volume] in Serum or Plasma1.9-2.7FAdena Regional Medical CenterMethamphetamine [Presence] in UrineOrdered By: Chaz Frey on 76-55-7590Crprgqxpptqpwmn Ql (U) Methamphetamine [Presence] in UrineAbnormal.[facility] Methamphetamine cutoff [Mass/volume] in Urine for Confirmatory methodOrdered By: Chaz Frey on 06-24-4525Dbbhuaqbfftbyhq cutoff Confirm (U) [Mass/Vol] Methamphetamine cutoff [Mass/volume] in Urine for Confirmatory fnpfzeUzjoph=547 The [facility] SouthwoodsMonocyte distribution width [Entitic volume] in Blood by AutomatedOrdered By: Jamin Sepulveda on 24-74-3017Smtitwvz distribution width Auto (Bld) [Entitic vol]Monocyte distribution width [Entitic volume] in Blood by Automated0.00-20.00The [facility] SouthwoodsMucus [Presence] in Urine by AutomatedOrdered By: Jamin Sepulveda on 87-13-5950Joltm Auto Ql (U)Mucus [Presence] in Urine by AutomatedThe Surgical Hospital At SouthwoodsNitrite Test strip Ql (U)Ordered By: Jamin Sepulveda on 69-30-7117Xmpxlhs Ql (U)Nitrite [Presence] in Urine by Test stripNegMercy Health West Hospital Opiates [Presence] in UrineOrdered By: Chaz Frey on 96-05-0838Girapun Ql (U) Opiates [Presence] in ZvkpfOjsnbr=272FmeciffttThe Surgical Hospital At SouthwoodsComment on above:Opiate test includes Codeine and Morphine only.Opiates [Presence] in Urine by Screen methodOrdered By: Jamin Sepulveda on 76-99-6899Fthkekd Screen Ql (U)Opiates [Presence] in Urine by Screen methodNegMercy Health West HospitalPartial Thromboplastin Timeon 87-73-9010nXTM Coag (Bld) [Time]22.3 sLow25.1-36.5The [facility] Physician GroupComment on above:Result Comment: A hematocrit value greater than 55% may lead to inaccurate results in coagulation testing. Patients having hematocrit values >55% require a special collection tube for coagulation studies. Please contact the laboratory at [phone] for redraw instructions.PERFORMED BY:[address] [place], [place] [phone] MEDICAL DIRECTORVÍCTOR ARSHAD M.D.Performed By: #### PTT, CMP, PT, CBC, CK, PRL, HS TROP ####[address] [address] [facility] Phencyclidine Screen Ql (U)Ordered By: Jamin Sepulveda on 92-23-1589Dkwezaimtxtnc Ql (U)Phencyclidine [Presence] in Urine by Screen methodNegMercy Health West HospitalPhencyclidine [Presence] in UrineOrdered By: Chaz Frey on 12-14-8836Fktctjrphiuge Ql (U)Phencyclidine [Presence] in Urine Cutoff=25The [facility] SouthwoodsComment on above:Performed at: - [facility] [id number] [place], [place] [address]Diq Director: Adenike Panchal PhD, Phone: [phone] 97-22-3733Hmoclcqff67.22 ng/mLHigh 2.64-13.13The [facility] Physician [facility] HospitalComment on above:Result Comment: PERFORMED BY:[address] [place]ZNEW [place], [place] [phone] MEDICAL DIRECTORVÍCTOR LUCERO M.D. Performed By: #### PTT, CMP, PT, CBC, CK, PRL, HS TROP ####[place] [place] [address] USAProtein Test strip (U) [Mass/Vol]Ordered By: Jamin Sepulveda on 26-20-0353Ilmsozj (U) [Mass/Vol]Protein [Mass/volume] in Urine by Test stripHighNegativeThe [facility] Hospital At SouthwoodsProthrombin Time INRon 24-93-8107SHQ Coag (PPP) [Relative time]1.0 {INR} NormalThe [facility] Physician [facility] HospitalComment on above:Result Comment: INR Therapeutic Range [...] CMP, PT, CBC, CK, PRL, HS TROP ####[address] [address] [place]APT Coag (PPP) [Time]11.9 s Normal9.0-12.9The [facility] Physician GroupComment on above:Result Comment: A hematocrit value greater than 55% may lead to inaccurate results in coagulation testing. Patients having hematocrit values >55% require a special collection tube for coagulation studies. Please contact the laboratory at [phone] for redraw instructions.Performed By: #### PTT, CMP, PT, CBC, CK, PRL, HS TROP ####[address] [place] [address] [facility] Prothrombin time (PT)Ordered By: Jamin Sepulveda on 11-61-4728IF Coag (PPP) [Time] Prothrombin time (PT)9.0-12.9The [facility] SouthwoodsComment on above:A hematocrit value greater than 55% may lead to inaccurate results in coagulation testing. Patientshaving hematocrit values >55% require a special collection tube for coagulation studies. Please contact the laboratory at [phone] for redraw instructions.Specific gravity of Urine by RefractometryOrdered By: Jamin Sepulveda on 46-66-4292Ugovxtmg gravity Refractometry (U) [Rel density] Specific gravity of Urine by RefractometryHigh1.001-1.030The [facility] SouthwoodsComment on above:Rechecked by refractometerTroponin I High Sensitivityon 99-50-3721Rzacquwb I High Hhtpiqexorf10.7 pg/mLHigh0.0-20.0The [facility] Physician GroupComment on above:Result Comment: PERFORMED BY:[address] [place]Z[address]AGAF[place], [place] [phone] MEDICAL DIRECTORVÍCTOR LUCERO M.D.Performed By: #### B12, ESR, HS TROP ####[place] [place] [phone] [facility] Troponin I High Aymzxbsgeae88.1 pg/mLHigh0.0-20.0The [facility] Comment on above:Result Comment: PERFORMED BY:[address] [place]Z[address]AGAF[place], [place] [phone] MEDICAL DIRECTORVÍCTOR JONESPAVITHRA RichPerformed By: #### PTT, CMP, PT, CBC, CK, PRL, HS TROP ####[facility] [address] [place] [address] [facility] CENTERUrine Drug Screen w/Confirmon 45-04-8089Dfkrjkhufoqc GC/MS Confirm, Ur 527 ng/oHNtagfaApofyl=092Xab [facility] Physician GroupComment on above:Performed By: #### UDS SCRN wRFX ####[facility] ,Amphetamines, UrSee Final EdlwopgAhwkeyUtkgrz=5402Qct [facility] Physician GroupComment on above:Result Comment: Amphetamine test includes Amphetamine and Methamphetamine.Performed By: #### UDS SCRN wRFX ####[facility] ,Amphetamines, UrPositiveCritically abnormal.The [facility] Physician GroupComment on above:Result Comment: Amphetamine test includes Amphetamine and Methamphetamine.Performed By: #### UDS SCRN wRFX ####[facility] ,Barbiturate, FdVbtggonjVpletbYcwopa=025Iaa [facility] Physician GroupComment on above:Performed By: #### UDS SCRN wRFX ####[facility] ,Benzodiazepines, UrSee Final XsqxxtzNtflbbTgmyzv=859 The [facility] Physician GroupComment on above:Performed By: #### UDS SCRN wRFX ####[facility] ,Benzodiazepines, KmkbcRpkzxbcxPkwcdzZytipd=650Kgm [facility] Physician GroupComment on above:Performed By: #### UDS SCRN wRFX ####[facility] ,Cannabinoid, UrSee Final ResultsNormalCutoff=50The [facility] Physician GroupComment on above:Performed By: #### UDS SCRN wRFX ####[facility] ,Cannabinoid, UrineNegativeNormalCutoff=50The [facility] Physician GroupComment on above:Result Comment: PERFORMED BY:[facility] [place]ZNEW [place], [place] [phone] MEDICAL DIRECTORVÍCTOR LUCERO M.D.Performed By: #### UDS SCRN wRFX ####[facility] ,Cocaine (Metab), JdDegrcmupSpqgnyWqhuzg=786Thk [facility] Physician GroupComment on above:Performed By: #### UDS SCRN wRFX ####[facility] ,MethamphetaminePositiveCritically abnormal.The [facility] Physician GroupComment on above:Performed By: #### UDS SCRN wRFX ####[facility] ,Methamphetamines GC/MS, Ur>8532XkrxwwCqhovf=148Ypu [facility] Physician GroupComment on above:Performed By: #### UDS SCRN wRFX ####[facility] ,Opaites, XkCfwpswfkKmzrqlMfwexn=789Uzq [facility] Comment on above:Result Comment: Opiate test includes Codeine and Morphine only. Performed By: #### UDS SCRN wRFX ####[facility] ,Phencyclidine, Ur NegativeNormalCutoff=25The [facility] Physician GroupComment on above:Result Comment: Performed at: [facility]Miss[facility] [address] [place], [place] [address] Hris Administrator: Adenike Panchal PhD, Phone: [phone] By: #### UDS SCRN wRFX ####[facility] ,Urine cocaine metabolite detectionOrdered By: Chaz Frey on 43-17-3241Bokxrvrbjyzktxf Ql (U)Urine cocaine metabolite ynitcjhenJngvgx=631VxrzgdmymThe Surgical Hospital At SouthwoodsUrobilinogen Test strip (U) [Mass/Vol]Ordered By: Jamin Sepulveda on 51-05-4768Fwzbevrxzhpu (U) [Mass/Vol] Urobilinogen [Mass/volume] in Urine by Test stripNoLutheran HospitalVitamin B12on 13-52-4308Qdgwjngcz (Vitamin B12) [Mass/Vol]313 pg/rSDqnsby463-136Ino [facility] Physician GroupComment on above:Result Comment: PERFORMED BY:[facility] [place], [place] [phone] MEDICAL DIRECTORVÍCTOR LUCERO M.D. Performed By: #### B12, ESR, HS TROP ####[facility] [address] [place] [address] [facility] CENTERVitamin B12 ser/plasOrdered By: Chaz Frey on 88-53-0921Quvwgrgsz (Vitamin B12) [Mass/Vol]Vitamin B12 ser/hanq232-332 [facility] SouthwoodsX-ray reportOrdered By: Dung Chakraborty on 45-26-3067Ggznc reportFIRMOUNT CARMEL HEALTH SYSTEM Main [place] [address] [place], [place] [address] XRay Report Signed Patient: Aaron Olivarez MR#: [id number] : 1960 Acct:[id number] Age/Sex: 64 / M ADM Date: 5 Loc: Room: [address] [place] [address] Type: ADM INOo Attending Dr: Chaz Frey [...] Dung Chakraborty M.D.11/17/2024 1:26 PM Dictation Location: [place] [address] Transcribed By: [facility] 11/17/24 1326 Dictated By: Dung Chakraborty II, MD 11/17/24 1326 Signed By: 11/17/24 1326 [facility] Work Phone: XR chest 1V portableon 64-37-3915DF chest 1V portable NormalThe [facility] Physician GroupaPTT in Platelet poor plasma by Coagulation assayOrdered By: Jamin Sepulveda on 72-80-6372jDST Coag (PPP) [Time]Activated partial thromboplastin time (aPTT) in platelet poor plasma by coagulation aLow 25.1-36.5FAdena Regional Medical CenterComment on above:A hematocrit value greater than 55% may lead to inaccurate results in coagulation testing. Patients having hematocrit values >55% require a special collection tube for coagulation studies. Please contact the laboratory at [phone] for redraw instructions. pH Test strip (U)Ordered By: Jamin Sepulveda on 70-15-5033tH (U)pH of Urine by Test strip5.0-9.0The [facility] SouthwoodsCB with Diffon 13-57-3710Iyz. Basophil0.04 k/uLNormal0.00-0.20[facility] SystemComment on above:Performed By: #### CDP, CMPX, MG #### [facility] [address] [place] [address] Hris Administrator: Olya Barrera.Imm.Granulocyte<0.41Esnjfq1.00-0.30[facility] Health SystemComment on above:Performed By: #### CDP, CMPX, MG #### [facility] [place] [address] Hris Administrator: Olya Barrera.Neutrophil (Seg)3.52 k/uLNormal1.50-8.10 [facility] SystemComment on above:Performed By: #### CDP, CMPX, MG #### [place] [address] Hris Administrator: Dario Almanza MDBasophils/100 WBC (Bld)1 %Normal0-2MAdventist Health Bakersfield - BakersfieldComment on above:Performed By: #### CDP, CMPX, MG #### [facility] [address] [place] [address] Hris Administrator: Dario Almanza MDEosinophils (Bld) [#/Vol]0.03 10*3/uLNormal 0.00-0.44[facility] SystemComment on above:Performed By: #### CDP, CMPX, MG #### [facility] [address] [place] [address] Hris Administrator: KEATON Barreraosinophils/100 WBC (Bld)1 %Normal1-4[facility] SystemComment on above:Performed By: #### CDP, CMPX, MG #### [facility] [address] [place] [address] Hris Administrator: Dario Almanza MDErythrocyte distribution width (RBC) [Ratio]13.1 %Faiumj19.8-14.4[facility] Health SystemComment on above:Performed By: #### CDP, CMPX, MG #### [place] [address] Hris Administrator: Dario Almanza MDHematocrit (Bld) [Volume fraction]42.4 %Normal 40.7-50.3Mmercy health – the jewish hospitaly [facility] Hospital At UclaComment on above:Performed By: #### CDP, CMPX, MG #### [place] [address] Hris Administrator: Dario Almanza MDHemoglobin (Bld) [Mass/Vol]13.7 g/dLNormal 13.0-17.0[facility] Health SystemComment on above:Performed By: #### CDP, CMPX, MG #### [address] [address] Hris Administrator: Dario Almanza MDImmature granulocytes/100 WBC (Bld)0 %Normal0 [facility] SystemComment on above:Performed By: #### CDP, CMPX, MG #### [place] [address] Hris Administrator: Dario Almanza MDLymphocytes (Bld) [#/Vol]1.19 10*3/uLNormal 1.10-3.70[facility] SystemComment on above:Performed By: #### CDP, CMPX, MG #### [facility] [address] [place] [address] Hris Administrator: Mis Barreramphocytes/100 WBC (Bld)22 %Aty88-30BiawnHolzer Health SystemComment on above:Performed By: #### CDP, CMPX, MG #### [facility] [address] [place] [address] Hris Administrator: ELISABETH BarreraCH (RBC) [Entitic mass]29.6 syIflasp94.2-33.5 [facility] SystemComment on above:Performed By: #### CDP, CMPX, MG #### [facility] [address] [place] [address] Hris Administrator: ELISABETH BarreraCHC (RBC) [Mass/Vol]32.3 g/oMQfmokj47.4-34.8 [facility] SystemComment on above:Performed By: #### CDP, CMPX, MG #### [address] [address] Hris Administrator: ELISABETH BarreraCV (RBC) [Entitic vol]91.6 wECpcpvn94.6-102.9 [facility] SystemComment on above:Performed By: #### CDP, CMPX, MG #### [facility] [address] [place] [address] Hris Administrator: ELISABETH Barreraonocytes (Bld) [#/Vol]0.61 10*3/uLNormal 0.10-1.20Holzer Health SystemComment on above:Performed By: #### CDP, CMPX, MG #### [facility] [address] [place] [address] Hris Administrator: ELISABETH Barreraonocytes/100 WBC (Bld)11 %Normal3-12Holzer Health SystemComment on above:Performed By: #### CDP, CMPX, MG #### [facility] [address] [place] [address] Hris Administrator: Dario Almanza MDNeutrophil (Seg)65 %Pdfdhm33-26ShcrmHolzer Health SystemComment on above:Performed By: #### CDP, CMPX, MG #### [address] [address] Hris Administrator: BUNNY Barrera Automated0.0 per 100 WBCNormal0.0Holzer Health SystemComment on above:Performed By: #### CDP, CMPX, MG #### [address] [address] Hris Administrator: Abida Barrera mean volume (Bld) [Entitic vol]9.2 fL Normal8.1-13.5Holzer Health SystemComment on above:Performed By: #### CDP, CMPX, MG #### [address] [address] Hris Administrator: Christel Barreratekaity (Bld) [#/Vol]227 10*3/vYXhxqxn797-468 [facility] Health SystemComment on above:Performed By: #### CDP, CMPX, MG #### [address] [address] Hris Administrator: SOBIA Barrera (Bld) [#/Vol]4.63 10*6/uLNormal4.21-5.77 [facility] Health SystemComment on above:Performed By: #### CDP, CMPX, MG #### [address] [address] Hris Administrator: DENTON Barrera (Bld) [#/Vol]5.4 10*3/uLNormal3.5-11.3MAdventist Health Bakersfield - BakersfieldComment on above:Performed By: #### CDP, CMPX, MG #### [address] [address] Hris Administrator: Dario Madoff, MDComp Metabolic Pr/rfx MGon 84-51-3020Kybbuau [Mass/Vol]3.8 g/dLNormal3.5-5.2Mmercy health – the jewish hospitaly Resnick Neuropsychiatric Hospital At UclaComment on above: Performed By: #### CDP, CMPX, MG #### [address] [address] Hris Administrator: Dario Almanza MDAlbumin/Glob Ratio2.4Cfetjz2.0-2.5Holzer Health SystemComment on above:Performed By: #### CDP, CMPX, MG #### [address] [address] Hris Administrator: Harsha Barrerakaline Pfut480 U/OFgxyaz13-853LufpiHolzer Health SystemComment on above:Performed By: #### CDP, CMPX, MG #### [address] [address] Hris Administrator: Dario Almanza MDALT [Catalytic activity/Vol]7 U/HZhz24-73UiscdHolzer Health SystemComment on above:Performed By: #### CDP, CMPX, MG #### [address] [address] Hris Administrator: Dario Almanza MDAnion gap [Moles/Vol]7 mmol/LLow9-16Holzer Health SystemComment on above:Performed By: #### CDP, CMPX, MG #### [address] [address] Hris Administrator: Dario Almanza MDAST [Catalytic activity/Vol]20 U/HWkwbrm31-93 [facility]zer Health SystemComment on above:Performed By: #### CDP, CMPX, MG #### [facility] [address] [place] [address] Hris Administrator: Dario Almanza MDBilirubin [Mass/Vol]0.6 mg/dLNormal0.00-1.20 [facility] Health SystemComment on above:Performed By: #### CDP, CMPX, MG #### [facility] [address] [place] [address] Hris Administrator: NEHEMIAS Barreraalcium [Mass/Vol]9.3 mg/dLNormal8.6-10.4Holzer Health SystemComment on above:Performed By: #### CDP, CMPX, MG #### [facility] [address] [place] [address] Hris Administrator: NEHEMIAS Barrerahloride [Moles/Vol]103 mmol/LWjzhlf55-749ElulwHolzer Health SystemComment on above:Performed By: #### CDP, CMPX, MG #### [address] [address] Hris Administrator: Dario Almanza MDCO2 [Moles/Vol]28 mmol/GUnabzi36-09CesmiHolzer Health SystemComment on above:Performed By: #### CDP, CMPX, MG #### [facility] [address] [place] [address] Hris Administrator: NEHEMIAS Barrerareatinine [Mass/Vol]0.9 mg/dLNormal0.70-1.20 [facility]zer Health SystemComment on above:Performed By: #### CDP, CMPX, MG #### [place] [address] Hris Administrator: Dario Almanza MDGFR/1.73 sq M.predicted among non-blacks MDRD (S/P/Bld) [Vol rate/Area]mL/min/{1.73_m2}Normal>60Holzer Health SystemComment on above:Result Comment: These results are not [...] #### CDP, CMPX, MG #### [facility] [address] [place] [address] Hris Administrator: Dario Almanza MDGlucose [Mass/Vol]95 mg/uRWdytec52-27RyussAdventist Health Bakersfield - BakersfieldComment on above:Performed By: #### CDP, CMPX, MG #### [facility] [address] [place] [address] Hris Administrator: Dario Almanza MDPotassium [Moles/Vol]3.4 mmol/LLow3.7-5.3MAdventist Health Bakersfield - BakersfieldComment on above:Performed By: #### CDP, CMPX, MG #### [place] [address] Hris Administrator: Dario Almanza MDProtein [Mass/Vol]5.8 g/dLLow6.6-8.7Holzer Health SystemComment on above:Performed By: #### CDP, CMPX, MG #### [facility] [address] [place] [address] Hris Administrator: Dario Almanza MDSodium [Moles/Vol]138 mmol/HNwlfer562-930BquzrHolzer Health SystemComment on above:Performed By: #### CDP, CMPX, MG #### [facility] [address] [address] Hris Administrator: Dario Almanza MDUrea nitrogen [Mass/Vol]15 mg/dLNormal8-23Holzer Health SystemComment on above:Performed By: #### CDP, CMPX, MG #### [facility] [address] [place] [address] Hris Administrator: Dario Almanza MDMagnesiumon 25-38-1677Rloveneed [Mass/Vol]2.0 mg/dLNormal1.6-2.4Holzer Health SystemComment on above:Performed By: #### CDP, CMPX, MG #### [employer] [address] [place] [address] Hris Administrator: RO aBrrera, POCon 01-72-4243Vpng nitrogen [Mass/Vol]18 mg/dLNormal8-26Holzer Health SystemCT BRAIN PERFUSIONon 39-77-5995FY BRAIN PERFUSIONEXAMINATION: CTA OF THE HEAD AND [...] by: Edgar Montilla MD 07/14/24 Final resultNormalMercy Resnick Neuropsychiatric Hospital At UclaCTA HEAD NECK W CONTRASTon 39-08-6781MMW HEAD NECK W CONTRASTEXAMINATION: CTA OF THE [...] Signed by: Edgar Montilla MD 07/14/24 Final resultNormalMerWest Los Angeles Memorial HospitalCalcium, Ionic (POC)on 39-39-7964Xpdfptn [Moles/Vol]1.11 mmol/LLow1.15-1.33Holzer Health SystemCreatinine w/GFR, POCon 67-85-3904Eulkpacmdy [Mass/Vol]1.0 mg/dLNormal 0.51-1.19Holzer Health SystemGFR/1.73 sq M.predicted among non- blacks MDRD (S/P/Bld) [Vol rate/Area]84 mL/min/{1.73_m2}Normal>60MerWest Los Angeles Memorial HospitalComment on above:Result Comment: These results are not [...] renal tubular secretion.Drug Scr, Abuse, Uron 07-14-2024 Amphetamine(s),UrPositiveAbnormalNEGHolzer Health SystemComment on above:Result Comment: Cutoff: 1000 ng/mLPerformed By: #### UAREBECCA MARIA D #### [employer] [address] [place] [address] Hris Administrator: Dario Almanza MDBenzodiazepine(s)PositiveAbcainsvilleNEGHolzer Health SystemComment on above:Result Comment: Cutoff: 200 ng/ml Performed By: #### UAMIC, MARIA D #### [facility] [address] [place] [address] Hris Administrator: NEHEMIAS Barreraannabinoid(s),UrPositiveAbnormalNEGMerWest Los Angeles Memorial HospitalComment on above:Result Comment: Cutoff: 50 ng/mlPerformed By: #### UAMIC, MARIA D #### [facility] [address] [place] [address] Hris Administrator: Dario Almanza MDInterpretive InfoAssay provides rapid clinical screening only. Presumptive positive results [facility] SystemComment on above:Result Comment: legal purposes should be confirmed by another method. To request confirmation, please call the lab within 7 days of sample submission.Performed By: #### UAMIC, MARIA D #### [address] [address] Hris Administrator: Dario Almanza MDBarbiturate(s),UrNegativeNormalNEGHolzer Health SystemComment on above:Result Comment: Cutoff: 200 ng/ml Performed By: #### UAMIC, MARIA D #### [address] [address] Hris Administrator: NEHEMIAS Barreraocaine MetaboliteNegativePackwaukeeNEGHolzer Health SystemComment on above:Result Comment: Cutoff: 300 ng/ml Performed By: #### UAMIC, MARIA D #### [facility] [address] [place] [address] Hris Administrator: Dario Almanza MDFentanyl, UrineNegativeNormakNEGHolzer Health SystemComment on above:Result Comment: Cutoff: 5 ng/mlPerformed By: #### UAMIC, MARIA D #### [facility] [address] [place] [address] Hris Administrator: ELISABETH Barreraethadone Ql (U)NegativeNormalHolzer Medical Center – JacksonComment on above:Result Comment: Cutoff: 300 ng/ml Performed By: #### UAMIC, MARIA D #### [facility] [address] [place] [address] Hris Administrator: Dario Almanza MDOpiate(s), UrNegativeZanesville City HospitalComment on above:Result Comment: Cutoff: 300 ng/mlPerformed By: #### UAMIC, MARIA D #### [facility] [address] [place] [address] Hris Administrator: Dario Almanza MDOxycodone, UrineNegativeZanesville City HospitalComment on above:Result Comment: Cutoff: 100 ng/ml Performed By: #### UAMIC, MARIA D #### [address] [address] Hris Administrator: Fidelina Barreraidine, UrNegativeZanesville City HospitalComment on above:Result Comment: Cutoff: 25 ng/mlPerformed By: #### UAMIC, MARIA D #### [address] [address] Hris Administrator: Dario Almanza MDElectrolyteson 70-39-3139Euccg gap [Moles/Vol]9 mmol/LNormal7-16Hol[facility] Health SystemChloride [Moles/Vol]101 mmol/L Fdfxjl55-956OcgcxHolzer Health SystemCO2 [Moles/Vol]32 mmol/UEvqh59-11 [facility] SystemPotassium [Moles/Vol]4.0 mmol/LNormal3.5-4.5 [facility] North Hospitalodium [Moles/Vol]141 mmol/FOsffhu904-086WxufmHolzer Health SystemGlucose (POC)on 71-49-8337Khblmlt [Mass/Vol]172 mg/dL Lmzj43-502ImxgmHolzer Health SystemHgb/Hct, POCon 40-96-1067Agwfrgfoke (Bld) [Volume fraction]43 %Awzzkj94-01Qocoz [facility] Neuropsychiatric Hospital At UclaHemoglobin (Bld) [Mass/Vol]14.8 g/bRKlnzzg24.5-17.5Mercy [facility] Hospital At UclaLactic Acidon 54-86-4776Qjyjkp Acid,Whole Bl1.7 mmol/LNormal0.7-2.1Mercy [facility] Hospital At UclaComment on above:Performed By: #### EDTOX, LACTIC #### [employer] [address] [place] [address] Hris Administrator: Dario Almanza MDLactic Acid (POC)on 92-68-8184Nxhbqmr [Moles/Vol]2.8 mmol/LHigh0.56-1.39Mercy [facility] At UclaMRI BRAIN W WO CONTRASTon 08-68-4809FTQ BRAIN W WO CONTRASTEXAMINATION: MRI OF THE [...] collection present. The proximal portions of the yuhaaviatam of [place] demonstrate normal flow voids. ORBITS: [...] Signed by: Edgar Montilla MD 07/14/24 Final resultNormalTriHealth Bethesda North Hospitaltroke Panelon 85-62-6384Ebn. Basophil0.06 k/uLNormal0.00-0.20Holzer Health SystemComment on above:Performed By: #### STROKE #### [address] [address] Hris Administrator: MDAbs. BruceImm.Granulocyte0.00 k/uLNormal0.00-0.30Holzer Health SystemComment on above:Performed By: #### STROKE #### [place] [address] Hris Administrator: Olya Barrera.Neutrophil (Seg)5.40 k/uLNormal1.50-8.10 [facility] SystemComment on above:Performed By: #### STROKE #### [address] [address] Hris Administrator: Dario Almanza MDBasophils/100 WBC (Bld)1 %Normal0-2Mercy [facility] Neuropsychiatric Hospital At UclaComment on above:Performed By: #### STROKE #### [address] [address] Hris Administrator: Dario Almanza MDEosinophils (Bld) [#/Vol]0.00 10*3/uLNormal 0.00-0.44Holzer Health SystemComment on above:Performed By: #### STROKE #### [address] [address] Hris Administrator: KEATON Barreraosinophils/100 WBC (Bld)0 %Low1-4Mer[facility] Mccammon Medical CenterComment on above:Performed By: #### STROKE #### [address] [address] Hris Administrator: Dario Almanza MDImmature granulocytes/100 WBC (Bld)0 %Normal0 [facility]zer Health SystemComment on above:Performed By: #### STROKE #### [address] [address] Hris Administrator: Dario Almanza MDLymphocytes (Bld) [#/Vol]0.43 10*3/uLLow 1.10-3.70Holzer Health SystemComment on above:Performed By: #### STROKE #### [address] [address] Hris Administrator: Mis Barreramphocytes/100 WBC (Bld)7 %Ikj58-26BfberHolzer Health SystemComment on above:Performed By: #### STROKE #### [address] [address] Hris Administrator: ELISABETH Barreraonocytes (Bld) [#/Vol]0.31 10*3/uLNormal 0.10-1.20[facility] Health SystemComment on above:Performed By: #### STROKE #### [address] [address] Hris Administrator: ELISABETH Barreraonocytes/100 WBC (Bld)5 %Normal3-12Hol[facility] Health SystemComment on above:Performed By: #### STROKE #### [address] [address] Hris Administrator: ELISABETH Barreraorphology David (Bld) [Interp]NormalNormalHolzer Health SystemComment on above:Performed By: #### STROKE #### [address] [address] Hris Administrator: Bouchra Barrerautrophil (Seg)87 %Vlwv89-19BdwrxHolzer Health SystemComment on above:Performed By: #### STROKE #### [address] [address] Hris Administrator: Dario Almanza MDAnion gap [Moles/Vol]8 mmol/LLow9-16Hol[facility] Health SystemComment on above:Performed By: #### STROKE #### [address] [address] Hris Administrator: Dario Almanza MDCalcium [Mass/Vol]8.5 mg/dLLow8.6-10.4Holzer Health SystemComment on above:Performed By: #### STROKE #### [address] [address] Hris Administrator: NEHEMIAS Barrerahloride [Moles/Vol]102 mmol/WOjrumi32-687YcdzuHolzer Health SystemComment on above:Performed By: #### STROKE #### [address] [address] Hris Administrator: Dario Almanza MDCK [Catalytic activity/Vol]101 U/PCznoxc41-773 [facility] SystemComment on above:Performed By: #### STROKE #### [address] [address] Hris Administrator: Dario Almanza MDCO2 [Moles/Vol]27 mmol/NDrohck76-63CyafyHolzer Health SystemComment on above:Performed By: #### STROKE #### [address] [address] Hris Administrator: Dario Almanza MDCreatinine [Mass/Vol]1.1 mg/dLNormal0.70-1.20 [facility] Medical CenterComment on above:Performed By: #### STROKE #### [facility] [address] [place] [address] Hris Administrator: Dario Almanza MDGFR/1.73 sq M.predicted among non-blacks MDRD (S/P/Bld) [Vol rate/Area]74 mL/min/{1.73_m2}Normal>60Holzer Health SystemComment on above:Result Comment: These results are not [...] renal tubular secretion.Performed By: #### STROKE #### [facility] [address] [place] [address] Hris Administrator: Dario Almanza MDGlucose [Mass/Vol]174 mg/uSYxmm14-96SbptuAdventist Health Bakersfield - BakersfieldComment on above:Performed By: #### STROKE #### [facility] [address] [place] [address] Hris Administrator: Dario Almanza MDMyoglobin [Mass/Vol]106 ng/kIKvxm87-77NoehdHolzer Health SystemComment on above:Performed By: #### STROKE #### [facility] [address] [place] [address] Hris Administrator: Dario Almanza MDPotassium [Moles/Vol]4.0 mmol/LNormal3.7-5.3 [facility] SystemComment on above:Result Comment: SPECIMEN SLIGHTLY HEMOLYZED, RESULTS MAY BE ADVERSELY AFFECTED.Performed By: #### STROKE #### [facility] [address] [place] [address] Hris Administrator: Dario Almanza MDSodium [Moles/Vol]137 mmol/DDojhnk352-583NuwkpHolzer Health SystemComment on above:Performed By: #### STROKE #### [address] [address] Hris Administrator: Brendan Barrera High Sens24 ng/LHigh0-[facility]zer Health SystemComment on above:Result Comment: High Sensitivity Troponin values cannot be compared with other Troponin methodologies.Performed By: #### STROKE #### [address] [address] Hris Administrator: Dario Almanza MDUrea nitrogen [Mass/Vol]16 mg/dLNormal8-[facility]zer Health SystemComment on above:Performed By: #### STROKE #### [address] [address] Hris Administrator: Dario Almanza MDaPTAundrea Coag (Bld) [Time]22.1 sLow23.0-36.5Holzer Health SystemComment on above:Result Comment: IV Heparin Therapy Range: 66.0-92.0 secPerformed By: #### STROKE #### [address] [address] Hris Administrator: ESPERANZA Barrera Coag (PPP) [Relative time]1.1 {INR}Normal [facility]zer Health SystemComment on above:Result Comment: Therapeutic Range: Moderate Anticoagulant Intensity: INR = 2.0-3.0 High Anticoagulant Intensity: INR = 2.5-3.5Performed By: #### STROKE #### [address] [address] Hris Administrator: JAYLAN Barrera Coag (PPP) [Time]13.6 eZctavr11.7-14.9Holzer Health SystemComment on above:Performed By: #### STROKE #### [address] [address] Hris Administrator: Dario Almanza MDErythrocyte distribution width (RBC) [Ratio]13.2 %Scgymd48.8-14.4Holzer Health SystemComment on above:Performed By: #### STROKE #### [address] [address] Hris Administrator: Dario Almanza MDHematocrit (Bld) [Volume fraction]42.4 %Normal 40.7-50.3MAdventist Health Bakersfield - BakersfieldComment on above:Performed By: #### STROKE #### [address] [address] Hris Administrator: Dario Almanza MDHemoglobin (Bld) [Mass/Vol]13.9 g/dLNormal 13.0-17.0Hol[facility] Health SystemComment on above:Performed By: #### STROKE #### [address] [address] Hris Administrator: ELISABETH BarreraCH (RBC) [Entitic mass]29.6 ddGoeowp16.2-33.5 [facility] SystemComment on above:Performed By: #### STROKE #### [address] [address] Hris Administrator: ELISABETH BarreraCHC (RBC) [Mass/Vol]32.8 g/lCUdsqhx62.4-34.8 [facility] SystemComment on above:Performed By: #### STROKE #### [address] [address] Hris Administrator: ELISABETH BarreraCV (RBC) [Entitic vol]90.2 sKOrdtlk35.6-102.9 [facility] SystemComment on above:Performed By: #### STROKE #### [address] [address] Hris Administrator: Dario Almanza MDNRBC Automated0.0 per 100 WBCNormal0.0Holzer Health SystemComment on above:Performed By: #### STROKE #### [address] [address] Hris Administrator: Abida Barrera mean volume (Bld) [Entitic vol]9.3 fL Normal8.1-13.5Holzer Health SystemComment on above:Performed By: #### STROKE #### [address] [address] Hris Administrator: Ayan Barrera (Bld) [#/Vol]267 10*3/fULjbjyl272-361 [facility] SystemComment on above:Performed By: #### STROKE #### [address] [address] Hris Administrator: SOBIA Barrera (Bld) [#/Vol]4.70 10*6/uLNormal4.21-5.77 [facility] SystemComment on above:Performed By: #### STROKE #### [address] [address] Hris Administrator: DENTON Barrera (Bld) [#/Vol]6.2 10*3/uLNormal3.5-11.3Mmercy health – the jewish hospitaly Res[facility]psych[facility] Hospital At UclaComment on above:Performed By: #### STROKE #### [address] [address] Hris Administrator: NILA Barrera w/reflex to FT4on 77-80-7839Svjgbsh Stim. Horm.1.44 uIU/mLNormal0.27-4.20Hol[facility] Health SystemComment on above: Performed By: #### TSHX ####[address] [place] [address] Lab Director: Lavon Barrera Scr, Bld, EDon 07-14-2024 Acetaminophen [Mass/Vol]ug/gZHwq41-72AeozoHolzer Health SystemComment on above:Performed By: #### EDTOX, LACTIC #### [facility] [address] [place] [address] Hris Administrator: Dario Almanza MDEthanol [Mass/Vol]mg/dLNormal<10Hol[facility] Health SystemComment on above:Performed By: #### EDTOX, LACTIC #### [facility] [address] [place] [address] Hris Administrator: Dario Almanza MDEthanol percent<0.010Normal<0.010Hol[facility] Health SystemComment on above:Performed By: #### EDTOX, LACTIC #### [facility] [address] [place] [address] Hris Administrator: VANESA Barreraalicylate<0.3Kosxsb5.0-10.0[facility] Health SystemComment on above:Performed By: #### EDTOX, LACTIC #### [facility] [address] [place] [address] Hris Administrator: Dario Almanza MDUrinalysis w/ Microon 33-89-9425YrdbpkfgIdbr NormalNONEMeDavies campusComment on above:Performed By: #### UAMIC, MARIA D #### [address] [address] Hris Administrator: Dario Almanza MDBilirubin, SemiQt,UrNegativeNormalNEGHolzer Health SystemComment on above:Performed By: #### UAMIC, MARIA D #### [facility] [address] [place] [address] Hris Administrator: Dario Almanza MDBlood, UrineNegativeNormalNEGHolzer Health SystemComment on above:Performed By: #### UAMIC, MARIA D #### [facility] [address] [place] [address] Hris Administrator: NEHEMIAS Barreraasts5 TO 10 HYALINENormal0-8Hol[facility] Health SystemComment on above:Result Comment: Reference range defined for non- centrifuged specimen.Performed By: #### ERI, MARIA D #### [address] [address] Hris Administrator: NEHEMIAS Barreralarity (U)ClearNormalCLEARHolzer Health SystemComment on above:Performed By: #### UAREBECCA, MARIA D #### [address] [address] Hris Administrator: NEHEMIAS Barreraolor (U)YellowNormalYELMerWest Los Angeles Memorial HospitalComment on above:Performed By: #### ERI, MARIA D #### [place] [address] Hris Administrator: Dario Almanza MDEpithelial cells LM Ql (Urine sed)0 TO 2Normal 0-5[facility] Health SystemComment on above:Performed By: #### ERI, MARIA D #### [address] [address] Hris Administrator: Dario Almanza MDGlucose Ql (U)1+ mg/dLAbnormalNEGHolzer Health SystemComment on above:Performed By: #### ELIOMIC, MARIA D #### [address] [address] Hris Administrator: Dario Almanza MDKetones Ql (U)NegativeNormalNEGHolzer Health SystemComment on above:Performed By: #### ERI, MARIA D #### [place] [address] Hris Administrator: Dario Almanza MDLeukocyte esterase Test strip Ql (U)Negative NormalNEGHolzer Health SystemComment on above:Performed By: #### UAMIC, MARIA D #### [facility] [address] [place] [address] Hris Administrator: Vita Barreraite,UrNegativeNormalNEGHolzer Health SystemComment on above:Performed By: #### UAMIC, MARIA D #### [facility] [address] [place] [address] Hris Administrator: JAYME Barrera,Ur7.7Oeyxxj2.0-8.0Hol[facility] Health SystemComment on above:Performed By: #### UAMIC, MARIA D #### [facility] [address] [place] [address] Hris Administrator: Treasure Barrera Ql (U)1+ mg/dLAbnormMarymount HospitalComment on above:Performed By: #### UAMIC, MARIA D #### [facility] [address] [place] [address] Hris Administrator: VANESA Barrerapec. Caret,Ur1.850Jhoo1.005-1.030[facility] Health SystemComment on above:Performed By: #### UAMIC, MARIA D #### [facility] [address] [place] [address] Hris Administrator: Sierra Barrera RBC's0 TO 9Txjgsn7-1XmgpqHolzer Health SystemComment on above:Result Comment: Reference range defined for non- centrifuged specimen.Performed By: #### UAMIC, MARIA D #### [facility] [address] [place] [address] Hris Administrator: Sierra Barrera WBC'sNoneNormal0-5[facility] Health SystemComment on above:Performed By: #### UAMIC, MARIA D #### [facility] [address] [place] [address] Hris Administrator: Dario Madoff, MDUrobilinogen,UrNormalNormal0.0-1.0[facility] Health SystemComment on above:Performed By: #### UAREBECCA, MARIA D #### [facility] [place] [address] Hris Administrator: Dario Almanza MDVenous Bld Gas,POCon 82-07-4586WXT3 (Bld) [Moles/Vol]31.9 mmol/LHigh22.0-29.0[facility] Health SystemOxygen saturation in Blood45.4 %Low60.0-85.0[facility] Health SystempCO2, Qzhuzt61.5 mm MbHkbkvp10.0-51.0[facility] Health SystempH,Venous7.435 High7.320-7.430Hol[facility] Health SystempO2, Ysnzxd12.6 mm HgLow30.0-50.0 [facility] SystemPositive Base Excess (calc)6.4 mmol/LHigh0.0-3.0 [facility] SystemXR ABDOMEN (KUB) (SINGLE AP VIEW)on 64-93-0225CV ABDOMEN (KUB) (SINGLE AP VIEW)EXAMINATION: ONE SUPINE [...] Signed by: Jt Gray MD 07/14/24 Final resultNormalHolzer Health SystemXR CHEST PORTABLEon 07-14-2024 XR CHEST PORTABLEEXAMINATION: ONE [...] by: Basil Witt DO 07/14/24 Final resultNormalMercy Resnick Neuropsychiatric Hospital At UclaCalcium [Mass/volume] in Serum or PlasmaOrdered By: Janae Jose on 25-57-2618Jxpefkr [Mass/Vol]9.0 mg/dL 8.6-10.3FAdena Regional Medical CenterCarbon dioxide, total [Moles/volume] in Serum or PlasmaOrdered By: Janae Jose on 89-43-6944RK3 [Moles/Vol]30.3 mmol/L21.0-31.0[facility] Hospital At SouthwoodsChloride [Moles/volume] in Serum or PlasmaOrdered By: Janae Jose on 37-06-7004Rhsgmrcj [Moles/Vol]98 mmol/L 98-107[facility] At SouthwoodsCreatinine [Mass/volume] in Serum or PlasmaOrdered By: Janae Jose on 95-06-1086Ophgnvodwe [Mass/Vol]0.97 mg/dL 0.70-1.30[facility] Hospital At SouthwoodsGlucose [Mass/volume] in Serum or PlasmaOrdered By: Janae Jose on 99-16-8134Zhripzw [Mass/Vol]105 mg/dQ35-275 The [facility] Hospital At SouthwoodsComment on above:ADA recommended reference rangeRandom Glucose Reference Range is dependent on time and content of last meal. Glucose of more than 200 mg/dL in a nonstressed, ambulatory subject supports the diagnosisof Diabetes Mellitus.No Panel InformationOrdered By: Janae Jose on 15-55-6514Qvaihczze GFR (CKD-EPI)> 60.0 mL/MinThe Surgical Hospital At SouthwoodsPharmacy Creatinine Clearance (Chem82.90The [facility] SouthwoodsPotassium [Moles/volume] in Serum or PlasmaOrdered By: Janae Jose on 51-28-7933Mnvikqcid [Moles/Vol]4.4 mmol/L3.5-5.1FBerger Hospitalerum or plasma anion gap determinationOrdered By: Janae Jose on 46-84-4219Rcedp gap [Moles/Vol]8.1 mmol/L6.0-15.0[facility] Hospitalodium [Moles/volume] in Serum or PlasmaOrdered By: Janae Jose on 07-35-8612Afkwyv [Moles/Vol]132 mmol/B263-802AxudrssxvThe Surgical Hospital At SouthwoodsUrea nitrogen [Mass/volume] in Serum or PlasmaOrdered By: Janae Jose on 33-78-8579Ghbg nitrogen [Mass/Vol]25 mg/dL7-25[facility] Ammonia [Moles/volume] in PlasmaOrdered By: Víctor Agrawal on 50-78-0567Cboichd (P) [Moles/Vol]22 umol/Y86-79EjbymmsiiThe Surgical Hospital At SouthwoodsBasophils Auto (Bld) [#/Vol]Ordered By: Magdy Douglass on 77-42-7217Onokasnvx (Bld) [#/Vol] 0.0 10*3/uL0.0-0.2FAdena Regional Medical CenterBasophils/100 WBC Auto (Bld) Ordered By: Magdy Douglass on 23-58-9674Euylffysy/100 WBC (Bld)0.1 %. [facility] SouthwoodsEosinophils Auto (Bld) [#/Vol]Ordered By: Magdy Douglass on 40-63-7250Gjcgapwnndl (Bld) [#/Vol]0.0 10*3/uL0.0-0.45 [facility] SouthwoodsEosinophils/100 WBC Auto (Bld)Ordered By: Magdy Douglass on 07-28-3649Ouqronybccw/100 WBC (Bld)0.0 %.The [facility] Hospital [facility] SouthwoodsErythrocyte distribution width Auto (RBC) [Ratio]Ordered By: Magdy Douglass on 68-87-7069Zfrlepjhymh distribution width (RBC) [Ratio]16.5 %12.0-14.8The [facility] SouthwoodsFolate [Mass/volume] in Serum or PlasmaOrdered By: Janae Jose on 92-05-3330Qznuib [Mass/Vol]9.7 ng/mL>5.9 The [facility] SouthwoodsComment on above:Folate reference range: >5.9 ng/mlThe WHO technical consultation on folate and vitamin u44gporrabmukrm has determined that folate concentrations lessthan 4 ng/ml are considered deficient. Hematocrit Auto (Bld) [Volume fraction]Ordered By: Magdy Douglass on 43-91-5963Dfwbpaxbla (Bld) [Volume fraction]45.0 %38.8-50.0The [facility] SouthwoodsHemoglobin [Mass/volume] in BloodOrdered By: Magdy Douglass on 31-54-0328Jizyaqwpwb (Bld) [Mass/Vol]14.8 g/dL13.0-17.0The [facility] Hospital [facility] SouthwoodsLeukocytes [#/volume] corrected for nucleated erythrocytes in Blood by Automated counOrdered By: Magdy Douglass on 73-01-4499MEN corrected for nucl RBC Auto (Bld) [#/Vol]9.6 10*3/uL4.1-10.5FAdena Regional Medical CenterLymphocytes Auto (Bld) [#/Vol]Ordered By: Magdy Douglass on 05-04-2024 Lymphocytes (Bld) [#/Vol]0.5 10*3/uL1.00-4.8[facility] Lymphocytes/100 WBC Auto (Bld)Ordered By: Magdy Douglass on 05-04-2024 Lymphocytes/100 WBC (Bld)4.9 %.The [facility] Hospital [facility] SouthwoodsMCH Auto (RBC) [Entitic mass]Ordered By: Magdy Douglass on 78-40-4823KHI (RBC) [Entitic mass]29.8 pg27.5-35.2FAdena Regional Medical CenterMCHC Auto (RBC) [Mass/Vol] Ordered By: Magdy Douglass on 61-61-7062ZVIV (RBC) [Mass/Vol]32.9 g/dL 32.5-35.6FAdena Regional Medical CenterMCV Auto (RBC) [Entitic vol]Ordered By: Magdy Douglass on 26-25-7906ZZL (RBC) [Entitic vol]90.4 fL83.5-101 [facility] SouthwoodsMonocytes Auto (Bld) [#/Vol]Ordered By: Magdy Douglass on 75-24-5466Ppbxwkfwt (Bld) [#/Vol]0.3 10*3/uL0.0-0.8The [facility] SouthwoodsMonocytes/100 WBC Auto (Bld)Ordered By: Magdy Douglass on 00-91-6619Ajmggcpce/100 WBC (Bld)3.0 %.[facility] Neutrophils Auto (Bld) [#/Vol]Ordered By: Magdy Douglass on 05-04-2024 Neutrophils (Bld) [#/Vol]8.9 10*3/uL1.8-7.7FAdena Regional Medical Center Neutrophils/100 WBC Auto (Bld)Ordered By: Magdy Douglass on 05-04-2024 Neutrophils/100 WBC (Bld)92.0 %.The [facility] Hospital [facility] SouthwoodsNucleated erythrocytes [Presence] in Blood by Automated countOrdered By: Magdy Douglass on 16-45-2739Qlskbzbms RBC Auto Ql (Bld)0.0 /100{WBC}0-0.5FAdena Regional Medical CenterPlatelet mean volume Auto (Bld) [Entitic vol]Ordered By: Magdy Douglass on 00-47-2533Ojebhcir mean volume (Bld) [Entitic vol]6.5 fL6.6-10.1 The [facility] Hospital At SouthwoodsPlatelets Auto (Bld) [#/Vol]Ordered By: Magdy Douglass on 50-74-8753Tttfuwwwo (Bld) [#/Vol]417 10*3/cE042-374QhhxezpmmThe Surgical Hospital At SouthwoodsRBC Auto (Bld) [#/Vol]Ordered By: Magdy Douglass on 03-81-7990NOY (Bld) [#/Vol]4.97 10*6/uL3.90-5.60The [facility] Hospital [facility] SouthwoodsThyrotropin [Units/volume] in Serum or PlasmaOrdered By: Janae Jose on 98-14-6184SKE Qn5.50 m[IU]/L0.45-5.33The [facility] SouthwoodsVitamin B12 ser/plasOrdered By: Janae Jose on 06-34-8187Gdjpqpjoc (Vitamin B12) [Mass/Vol]500 pg/aP159-706AetwgttdrThe Surgical Hospital At SouthwoodsWBC Auto (Bld) [#/Vol]Ordered By: Magdy Douglass on 49-12-4473MPF (Bld) [#/Vol]9.6 10*3/uL 4.1-10.5FAdena Regional Medical CenterAlanine aminotransferase [Enzymatic activity/volume] in Serum or PlasmaOrdered By: Magdy Douglass on 05-03-2024 ALT [Catalytic activity/Vol]14 U/L7-52The [facility] Hospital At SouthwoodsAlbumin [Mass/volume] in Serum or Plasma by Bromocresol green (BCG) dye binding metho Ordered By: Magdy Douglass on 09-66-1316Hhzyfrn BCG dye [Mass/Vol]3.1 g/dL 3.5-5.7FAdena Regional Medical CenterAlkaline phosphatase [Enzymatic activity/volume] in Serum or PlasmaOrdered By: Magdy Douglass on 05-03-2024 ALP [Catalytic activity/Vol]131 U/U33-759MxnzqhtpoThe Surgical Hospital At Southwoods Aspartate aminotransferase [Enzymatic activity/volume] in Serum or PlasmaOrdered By: Magdy Douglass on 44-10-6992LUE [Catalytic activity/Vol]12 U/L13-39 [facility] Hospital [facility] SouthwoodsBilirubin.total [Mass/volume] in Serum or PlasmaOrdered By: Magdy Douglass on 40-79-1268Rcuijpxcl [Mass/Vol]0.4 mg/dL 0.3-1.0The [facility] Hospital At SouthwoodsGlobulin Calc (S) [Mass/Vol]Ordered By: Magdy Douglass on 47-15-1487Eyjzeape (S) [Mass/Vol]2.8 g/dLThe Surgical Hospital At SouthwoodsProtein [Mass/volume] in Serum or PlasmaOrdered By: Magdy Douglass on 97-11-1712Jbqwihl [Mass/Vol]5.9 g/dL6.4-8.9[facility] Community Hospitalerum or plasma albumin/globulin mass ratioOrdered By: Magdy Douglass on 09-90-7176Bhxtfdb/Globulin [Mass ratio]1.1 {ratio}The [facility] Hospital At SouthwoodsC reactive protein [Mass/volume] in Serum or Plasma Ordered By: Magdy Douglass on 90-56-0710ACE [Mass/Vol]2.5 mg/dL0.0-0.5 [facility] Hospital [facility] SouthwoodsLactate [Moles/volume] in Serum or Plasma Ordered By: Magdy Douglass on 33-94-4352Rceislm [Moles/Vol]0.6 mmol/L0.5-2.2 [facility] SouthwoodsMagnesium [Mass/volume] in Serum or Plasma Ordered By: Magdy Douglass on 36-33-1542Nfihiplbp [Mass/Vol]2.1 mg/dL1.9-2.7 [facility] SouthwoodsTroponin I.cardiac [Mass/volume] in Serum or Plasma by Detection limit <= 0.01 ng/Ordered By: Janae Jose on 05-02-2024 Troponin I.cardiac DL <= 0.01 ng/mL [Mass/Vol]74.8 pg/mL0.0-20.0The [facility] Hospital At SouthwoodsComment on above:Critical Result : Called to and read back by: JAYLAN YAO at: 05/02/2024 15:02:51 by:GABACETAMINOPHENon 11-24-2022 Acetaminophen [Mass/Vol]ug/sRVbdhfq32.0-30.0The [facility] HospitalComment on above:Performed By: #### SALYC, ACET, CMP, ETH #### [facility] [address] [place] [address] Dr. Renny West AUTO DIFFon 02-73-5461KVMO #0.0 103/ulNormal0.0-0.1The [facility] HospitalComment on above:Performed By: #### CBC #### [facility] [address] [address] [address] Renny Yousifsophils/100 WBC (Bld)0.8 %Normal0.2-2.0[facility] Comment on above:Performed By: #### CBC #### [facility] [address] [place] [address] Dr. Renny Triplett #0.3 103/ulNormal0.0-0.7The [facility] HospitalComment on above: Performed By: #### CBC #### [facility] [address] [address] [address] Renny Rinaldiosinophils/100 WBC (Bld)6.2 %Normal0.9-7.0The [facility] Comment on above:Performed By: #### CBC #### [facility] [address] [place] [address] Dr. Renny Rinaldirythrocyte distribution width (RBC) [Ratio]14.8 %Dqncho68.0-15.0 [facility] InstituteComment on above:Performed By: #### CBC #### [facility] [address] [place] [address] Dr. Renny AzevedoHematocrit (Bld) [Volume fraction]38.6 %Critically low42.0-54.0 The [facility] HospitalComment on above:Performed By: #### CBC #### [facility] [address] [place] [address] Dr. Renny AzevedoHemoglobin (Bld) [Mass/Vol]12.6 g/dLCritically low14.0-18.0The [facility] HospitalComment on above:Performed By: #### CBC #### [facility] [address] [place] [address] Dr. Renny Pa #0.01 10e3/ulNormal0.00-0.03The [facility] HospitalComment on above:Performed By: #### CBC #### [facility] [address] [place] [address] Dr. Renny Pa %0.2 %Normal0.0-0.5The [facility] Hospitalment on above: Performed By: #### CBC #### [facility] [address] [place] [address] Dr. Renny ClarosH #1.4 103/ulNormal1.2-3.8The [facility] HospitalComment on above:Performed By: #### CBC #### [facility] [address] [place] [address] Dr. Renny Reedmphocytes/100 WBC (Bld)28.1 %Scdvsy64.5-60.0The [facility] HospitalComment on above:Performed By: #### CBC #### [facility] [address] [address] [address] Renny Geronimo DIFF REQNONormalThe [facility] HospitalComment on above: Performed By: #### CBC #### [facility] [address] [place] [address] Dr. Renny Emerson (RBC) [Entitic mass]31.0 twQpjlft68.9-34.0The [facility] HospitalComment on above:Performed By: #### CBC #### [facility] [address] [place] [address] Dr. Renny Emerson (RBC) [Mass/Vol]32.6 g/bYHusiwy52.9-35.2The [facility] HospitalComment on above:Performed By: #### CBC #### [facility] [address] [place] [address] Dr. Renny Emerson (RBC) [Entitic vol]95.1 fLCritically high80.0-94.0The [facility] HospitalComment on above:Performed By: #### CBC #### [facility] [address] [place] [address] Dr. Renny Cook #0.3 103/ulNormal0.3-0.8The [facility] HospitalComment on above:Performed By: #### CBC #### [facility] [address] [place] [address] Dr. Renny Calvilloocytes/100 WBC (Bld)5.8 %Normal1.7-12.0[facility] Comment on above:Performed By: #### CBC #### [facility] [address] [place] [address] Dr. Renny Guaman #3.0 103/ulNormal1.4-6.5The [facility] HospitalComment on above:Performed By: #### CBC #### [facility] [address] [place] [address] Dr. Renny Chanutrophils/100 WBC (Bld)58.9 %Kwqbme50.0-75.0R[facility] Health InstituteComment on above:Performed By: #### CBC #### [facility] [address] [address] [address] Renny AzevedoPlatelet mean volume (Bld) [Entitic vol]8.8 fLCritically low 9.5-13.5The [facility] HospitalComment on above:Performed By: #### CBC #### [facility] [address] [place] [address] Dr. Renny AzevedoPLT260 103/teQwfaad978-839Hji [facility] HospitalComment on above: Performed By: #### CBC #### [facility] [address] [place] [address] Dr. Renny AzevedoRBC4.06 106/ulCritically low4.70-6.10The [facility] HospitalComment on above:Performed By: #### CBC #### [facility] [address] [place] [address] Dr. Renny AzevedoWBC5.0 103/ulNormal4.0-11.0The [facility] HospitalComment on above: Performed By: #### CBC #### [facility] [address] [place] [address] Dr. Renny AzevedoCT CSPINE WO CONon [id number] JOSE WO CONEXAM: CT LISINE WO CON [...] Electronically authenticated by: VIC ADAMES Date: 2022-11-24 05:42[facility] HospitalCT FACIAL BONES WO CONon [id number] FACIAL BONES WO CON EXAMINATION: CT HEAD [...] Electronically authenticated by: ANNA RICO Date: 2022-11-24 05:43[facility] HospitalDRUG SCREEN RAPID (URINE)on 26-30-3116NJSPhmenkxsDmzcymfy NEGATIVERiverview Health InstituteComment on above:Performed By: #### DRUGRPD #### [facility] [address] [place] [address] Dr. Renny AzevedoBARNegativeNormalNEGATIVERiverview Health InstituteComment on above: Performed By: #### DRUGRPD #### [facility] [address] [place] [address] Dr. Renny AzevedoBUPNegativeNormalNEGATIVERiverview Health InstituteComment on above: Performed By: #### DRUGRPD #### [facility] [address] [place] [address] Dr. Renny AzevedoBZONegativeNormalNEGATIVERiverview Health InstituteComment on above: Performed By: #### DRUGRPD #### [facility] [address] [place] [address] Dr. Renny LittlejohnCPositiveAbresearch medical centeralNEGATIVERiverview Health InstituteComment on above: Performed By: #### DRUGRPD #### [facility] [address] [place] [address] Dr. Renny MorrisonSelect Medical Specialty Hospital - Cincinnati NorthComment on above: Result Comment: AMP (Amphetamine): 500ng/mL, BAR (Barbituates): 200 ng/mL, BZO (Benzodiazepines): 150 ng/mL, BUP (Buprenorphine): 10 ng/mL, SHAYE (Cocaine): 150 ng/mL, mAMP (Methamphetamine): 500 ng/mL, MTD (Methadone): 200 ng/mL, OPI (Opiates): 100 ng/mL, OXY (Oxycodone): 100 ng/mL, PCP (Phencyclidine): 25 ng/mL, PPX (Propoxyphene): 300 ng/mL, THC (Cannabinoids): 50 ng/mL, TCA (Trycyclic Antidepressants): 300 ng/mLPerformed By: #### DRUGRPD #### [facility] [address] [place] [address] Dr. Renny AzevedoDRUG CUT HEADERDRUG CLASS TEST SYSTEM CUT-OFF CONCENTRATIONS ARE FOLLOWS:NormalThe [facility] HospitalComment on above:Performed By: #### DRUGRPD #### [facility] [address] [place] [address] Dr. Renny AzevedomAMPPositiveAbnormalNEGATIVERiverview Health InstituteComment on above:Performed By: #### DRUGRPD #### [facility] [address] [place] [address] Dr. Renny AzevedoMTDNegativeNormalNEGATIVERiverview Health InstituteComment on above: Performed By: #### DRUGRPD #### [facility] [address] [place] [address] Dr. Renny AzevedoOPINegativeNormalNEGATIVERiverview Health InstituteComment on above: Performed By: #### DRUGRPD #### [facility] [address] [place] [address] Dr. Renny AzevedoOXYNegativeNormalNEGATIVERiverview Health InstituteComment on above: Performed By: #### DRUGRPD #### [facility] [address] [place] [address] Dr. Renny AzevedoPCPNegativeNormalNEGATIVERiverview Health InstituteComment on above: Performed By: #### DRUGRPD #### [facility] [address] [place] [address] Dr. Renny AzevedoPPXNegativeNormalNEGATIVERiverview Health InstituteComment on above: Performed By: #### DRUGRPD #### [facility] [address] [place] [address] Dr. Renny AzevedoTCANegativeNormalNEGATIVERiverview Health InstituteComment on above: Performed By: #### DRUGRPD #### [facility] [address] [place] [address] Dr. Renny LouisegativeNormalNEGATIVEThe [facility] Hospitalment on above: Performed By: #### DRUGRPD #### [facility] [address] [place] [address] Dr. Renny Cooper (BLD ALC)on 44-47-2694KXP NOTENOTE: 80 mg/dl is the legal limit for a blood alcohol levelNoSheltering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 2322601-09-2025 08:00-0500 Diastolic blood owleeirc23 mm[Hg]Sulaiman Razaroh DO Work Phone: 1(693)[address]01-09-2025 08:00-0500 Inhaled oxygen flow rate2 L/minDavid Degroh DO Work Phone: 1(123)686-[address] [place], [place] 2322601-09-2025 08:00-0500 Systolic blood poyigtbz415 mm[Hg]Sulaiman Razaroh DO Work Phone: 1(178)958-[address] [place], [place] 2322601-09-2025 06:00-0500 Body kgDavid Degroh DO Work Phone: 1(541)599-[address] [place], [place] 2322601-07-2025 16:33-0500 Body niuwhm250.88 cmDavid Degroh DO Work Phone: 1(601)374-[address] [place], [place] 2322601-06-2025 13:05-0500 Diastolic blood wsuplwsy95 mm[Hg]Sulaiman Razaroh DO Work Phone: 1(367)660-[address] [place], [place] 2322601-06-2025 13:05-0500 Heart rate87 /minDavid Degroh DO Work Phone: 1(662)592-[address] [place], [place] 2322601-06-2025 13:05-0500 Respiratory rate18 /minDavid Degroh DO Work Phone: 1(249)145-[facility]01-06-2025 13:05-0500 SaO2% (BldA) [Mass fraction]100 %Sulaiman Degroh DO Work Phone: 1(701)940-[address] [place], [place] 2322601-06-2025 13:05-0500 Systolic blood xdwxvzuv724 mm[Hg]Sulaiman Degroh DO Work Phone: 1(956)[address]01-06-2025 08:03-0500 Body .9 [degF]Sulaiman Degroh DO Work Phone: 1(446)[address]01-06-2025 00:00-0500 Inhaled oxygen flow rate2 L/Ianavid Degroh DO Work Phone: 1(498)[address]01-05-2025 08:50-0500 Body oxeysm878.88 cmDavid Degroh DO Work Phone: 1(544)[address]01-05-2025 08:50-0500 Body ukcciz43.7 kgDavid Degroh DO Work Phone: 1(924)[address]06-24-2024 14:25-0400 Body ppphieqgykf56 [degF]DO Sulaiman Degroh Work Phone: 1(028)896-[address] [place], [place] 2322606-24-2024 14:25-0400 Diastolic blood vzbehmyk59 mm[Hg]DO Sulaiman Degroh Work Phone: 1([phone])647-[address] [place], [place] 2322606-24-2024 14:25-0400 Heart rate64 /minDO Sulaiman Degroh Work Phone: 1([phone])477-[address] [place], [place] 2322606-24-2024 14:25-0400 Respiratory rate19 /minDO Sulaiman Degroh Work Phone: 1([phone])806-[address] [place], [place] 2322606-24-2024 14:25-0400 SaO2% (BldA) [Mass fraction]93 %DO Sulaiman Degroh Work Phone: [phone])271-[facility]06-24-2024 14:25-0400 Systolic blood qadfowbp848 mm[Hg]DO Sulaiman Degroh Work Phone: [phone]06-24-2024 07:34-0400 Inhaled oxygen flow rate2 L/minDO Sulaiman Feldman Work Phone: [facility]06-24-2024 06:00-0400 Body avndyq17.7 kgDO Sulaiman Feldman Work Phone: [facility]06-22-2024 01:00-0400 Inhaled oxygen vopkmdbjztnzk75 %DO Sulaiman Feldman Work Phone: [facility]06-20-2024 11:24-0400 Body .88 cmDO Sulaiman Giraldo Work Phone: [facility] Encounters Encounter DateEncounter TypeCare ProviderFacilityStart: 30-05-8396Iqb-patient / Non-visitLarry E Kodi Perez -[facility] Palliative Work Phone: Start: 88-37-8643Akq-patient / Non-visitChristopher E Raina [place]-[facility] Pulmonary Work Phone: Start: 07-31-2025 End: 90-14-8032Tjhggujwkk and management of inpatientKristopher Lindbloo Facility:[facility]: 78-74-4463Wbe-patient / Non-visitAdam Rachelle -[facility] Neurology Work Phone: Start: 07-31-2025 End: 84-63-0798bgnbrfwspgSxcan Rudy Feldman DO Work Phone: [facility] Work Phone: Start: 07-31-2025 End: 06-75-9546Vvfiycau Adrianna Peng DO-[facility] Start: 06-07-2025 End: 65-73-6482trcofsvfomONHCXRZHW LANGSHAWFacility:METROHealthStart: 06-07-2025 Non-patient / Non-visitDerek Wai Oglesby -[facility] Pulmonary Work Phone: Start: 06-07-2025 End: 12-31-1218Uidkvbvpor and management of inpatientKatherine Sciarappa Facility:[facility]: 12-72-5244Olr-patient / Non-visitDavid Degroh DO Work Phone: [facility] Cardiology Work Phone: Start: 11-18-2024 End: 04-97-0999Kzojwfovsh and management of inpatientDavid Degroh DO Work Phone: [facility] Work Phone: Start: 11-17-2024 End: 84-02-6248Dyonvhxsg department patient visitNO PCP NO [facility] Ambulatory PPGStart: 07-18-6872Jzynqqwffh and management of inpatientDavid Degroh DO Work Phone: [facility] Work Phone: Start: 79-61-6135jhbpexetjqh encounterDavid L Degroh DO Work Phone: [facility] Work Phone: Start: 07-14-2024 End: 43-88-8006Niydpllyqp and management of inpatientAHMED B YOAVIsamar [facility] Centertart: 58-40-1859Taj-patient / Non-visitDO Sulaiman Feldman Work Phone: [facility] Work Phone: Start: 02-96-9537Qba-patient / Non-visitDO Sulaiman Feldman Work Phone: [facility] Work Phone: Start: 05-01-2024 End: 51-68-4161Jsmdxvnnon and management of inpatientDO Sulaiman Feldman Work Phone: [facility] Work Phone: Start: 11-24-2022 End: 11-42-4289lchdegleszLO NONE LISTED REQUESTFacility:Q0Fvnnv: 10-14-2018 End: 73-51-3490Vtytzmdjr department patient visitMervera Manzanares HospitalStart: 01-29-2018 End: 22-19-1992Wnspujemyl and management of inpatientSREEKANTH V INDURTIMercy Rexburg HospitalStart: 09-29-2017 End: 92-05-4380Xjargnnba department patient visitNone ProviderFacility:[facility] HospitalStart: 06-07-2017 End: 78-99-9119Ktowbndgx department patient visitLutheran HospitalStart: 05-27-2017 End: 41-98-7503Qsexlxroy department patient visitLutaultman alliance community hospital Hospital Procedures DateProcedureProcedure DetailPerforming ClinicianStart: 98-19-9010Klivs culture Sulaiman Degkrystyna DO Work Phone: Start: 24-12-3383RJV of headDavid Degroh DO Work Phone: Start: 96-80-5506Komxv chest X-rayDavid Degroh DO Work Phone: Start: 41-21-9775SW angiography of headDavid Degroh DO Work Phone: Start: 40-57-9168LY angiography of neck vesselsDavid Degroh DO Work Phone: Start: 20-08-4100TL of head without contrastDavid Degroh DO Work Phone: Start: 67-60-7994PU of head without contrastDO Sulaiman Feldman Work Phone: Start: 62-71-1238Gresv chest X-rayDO Sulaiman Feldman Work Phone: Start: 18-35-2057Ve lumbar spine w/o contrast material Start: 22-44-9591VJ OPIOID CONTAINING MEDICATIONSStart: 46-05-5808SWPQEDXWH PATIENTSREEKANTH INDURTIStart: 94-20-9476ZSL 12-LEADSREEKANTH INDURTIStart: 78-65-7717KCP WITH AUTO DIFFERENTIALSREEKANTH INDURTIStart: 01-30-2018 COMPREHENSIVE METABOLIC PANELSREEKANTH INDURTIStart: 93-49-2938Glutp panel ELIAN INDURTIStart: 47-27-9676Y4FIODBQUMO INDURTIStart: 74-09-7255W3 ELIAN INDURTIStart: 29-29-7940ZTT WITH REFLEXSREEKANTH INDURTIStart: 45-32-1477WO W/REFLEX CULTURESREEKANTH INDURTIStart: 80-90-9849MYXVJ DRUG SCREEN ELIAN INDURTIStart: 89-15-8253WQ CONSULT TO HISTORY AND PHYSICALSREEKANTH INDURTIStart: 44-22-8153JYGUDBDVZFWZX NURSING CARE ORDER (SPECIFY)ELIAN INDURTIStart: 19-46-3252ZZOSE SIGNSSREEKANTH INDURTIStart: 34-02-9331CKXF CODE ELIAN INDURTIStart: 34-45-8226LMGUZNN STATUS (DIRECT)ELIAN INDURTIStart: 41-45-8307YZBI GENERALSREEKANTH INDURTI Plan of Treatment DateCare ActivityDetailAuthorStart: 79-83-7791AydgmutyoThe [facility] Start: 68-26-2757Kvrjjotm to palliative care physicianAultman Alliance Community Hospitaltart: 12-72-7762Tosfwfdx to psychiatristAultman Alliance Community Hospitaltart: 10-66-5950MugyljblxtszBgmbvpycsAultman Alliance Community Hospitaltart: 08-11-2025 End: 43-85-9924AehatrkhhAultman Alliance Community Hospitaltart: 19-08-3169JA Chest Single viewAultman Alliance Community Hospitaltart: 62-58-1106YdhlhcbnjAultman Alliance Community Hospitaltart: 67-35-5603PH Chest Single [facility]: 10-49-4620CuwgqotidAultman Alliance Community Hospitaltart: 71-10-5629GY Chest Single [facility]tart: 37-62-9208VfkclxlvkAultman Alliance Community Hospitaltart: 54-75-2755JD Chest Single [facility]tart: 86-54-4689IxiwnhmyyCleveland Clinic Union Hospital CenterStart: 19-61-2671CX Chest Single viewCleveland Clinic Union Hospital CenterStart: 08-06-2025 [facility] CenterStart: 14-83-7747ML Chest Single viewCleveland Clinic Union Hospital CenterStart: 07-79-5535CimzxmjpkCleveland Clinic Union Hospital CenterStart: 17-47-4255TN Chest Single viewCleveland Clinic Union Hospital CenterStart: 2025 [facility] CenterStart: 20-39-7677CF Chest Single viewCleveland Clinic Union Hospital CenterStart: 42-40-9123NstefxggiCleveland Clinic Union Hospital CenterStart: 66-32-5635XlxwvroyhCleveland Clinic Union Hospital CenterStart: 94-05-8813UoynuffojCleveland Clinic Union Hospital CenterStart: 29-74-6210YuvpgwgxrCleveland Clinic Union Hospital CenterStart: 26-74-0043Nlmhlmtbhv procedureCleveland Clinic Union Hospital CenterStart: 07-31-2025 Urine cultureAultman Alliance Community Hospitaltart: 69-28-9763Vhllouzx to neurologSelect Medical Specialty Hospital - [facility]-Fairhilltart: 47-12-8230Wlugxwdycwk of substanceAultman Alliance Community Hospitaltart: 07-31-2025 End: 78-46-1069QkxavnaapCleveland Clinic Union Hospital CenterStart: 92-20-8677Iielcoltsiak [facility] CenterStart: 42-99-9796Thieanic admissionC[facility] Clinic Union Hospital CenterStart: 05-29-5677Ehxfzusu to cardiologistCleveland Clinic Union Hospital CenterStart: 85-89-1477Extrbzev identified in Urine by Culture Urine CultureCleveland Clinic Union Hospital CenterStart: 17-76-2606Cbiwf culture [facility] CenterStart: 99-61-4613IsmedwzxcCleveland Clinic Union Hospital CenterStart: 78-50-5813KpcmknhvdCleveland Clinic Union Hospital CenterStart: 06-10-2025 [facility] CenterStart: 18-95-3325YoopzwccrC[facility] Clinic Union Hospital CenterStart: 98-92-3035Dalbnpwhtm procedureThe [facility] Start: 77-29-3345Rkxflsfy to neurologSelect Medical Specialty Hospital - Cleveland-Fairhilltart: 06-07-2025 End: 36-04-5120IvluabvlbAultman Alliance Community Hospitaltart: 74-97-5344Kbebukumlhdg [facility] Hospitaltart: 09-55-3109Wwcdwpxm admissionAultman Alliance Community Hospitaltart: 45-28-2001Ljokdkzy to cardiac rehabilitation programAultman Alliance Community Hospitaltart: 34-92-6750NyktevwsiAultman Alliance Community Hospitaltart: 20-71-8089Gcecbmmduq procedureAultman Alliance Community Hospitaltart: 31-87-7977ZHR of headMR head/brain wo/w [facility]: 84-57-4070ZbvwstwgfAultman Alliance Community Hospitaltart: 10-69-2588Yvxzzdggas procedureAultman Alliance Community Hospitaltart: 11-17-2024 [facility]tart: 60-80-6472Bdcuocgl to c 13 catapult operator [facility] Hospitaltart: 05-60-8929Ykeohylq therapy procedure [facility]tart: 91-77-8212Prleeugw to occupational therapistAultman Alliance Community Hospitaltart: 21-75-7142Borxbiru to speech and language therapy serviceAultman Alliance Community Hospitaltart: 11-17-2024 Referral to neurologistAultman Alliance Community Hospitaltart: 11-17-2024 Hospital admissionA[facility]man Alliance Community Hospitaltart: 28-20-3637LocqlbtuhAultman Alliance Community Hospitaltart: 43-74-3509Ozdpxvtwywbl consultation with patient [facility]tart: 34-23-2278KzqcuhekrAultman Alliance Community Hospitaltart: 48-26-9455Ojnawcvr to rehabilitation physicianAultman Alliance Community Hospitaltart: 17-67-2298Baygfhkgytvdem of prophylactic treatmentAultman Alliance Community Hospitaltart: 68-01-1800IltwcqfgxAultman Alliance Community Hospitaltart: 83-71-1326YjrzhrferwraHhmfnwaneAultman Alliance Community Hospitaltart: 05-01-2024 Hospital admissionThe [facility]woodsAmphetamines [Presence] in Urine by Screen methodThe [facility] Hospital At [facility]woodsAnion gap measurement [facility]woodsBarbiturates [Presence] in Urine by Screen methodThe Surgical Hospital At SouthwoodsBasophils [#/volume] in Blood by Automated countThe Surgical Hospital At SouthwoodsBasophils/100 leukocytes in Blood by Automated [facility] - CantonBenzodiazepines [Presence] in UrineThe Surgical Hospital At SouthwoodsBenzoylecgonine [Presence] in UrineThe Surgical Hospital At SouthwoodsCannabinoids [Presence] in Urine by Screen [facility] HospitalDrugs identified in UrineThe Surgical Hospital At SouthwoodsEosinophils/100 leukocytes in Blood by Automated count [facility]woodsErythrocyte distribution width [Ratio] by Automated [facility] - CantonErythrocytes [#/volume] in Blood [facility] SouthwoodsGlomerular filtration rate [Volume Rate/Area] in Serum, Plasma or Blood by CreatinineThe [facility] Hospital [facility] Hematocrit [Volume Fraction] of BloodThe Surgical Hospital At SouthwoodsHemoglobin [Mass/volume] in BloodThe Surgical Hospital At SouthwoodsLegionella pneumophila Ag [Presence] in UrineThe Surgical Hospital At SouthwoodsLeukocytes [#/volume] corrected for nucleated erythrocytes in Blood by Automated counThe Surgical Hospital At SouthwoodsLeukocytes [#/volume] in BloodThe Surgical Hospital At SouthwoodsLymphocytes [#/volume] in Blood by Automated countThe Surgical Hospital At SouthwoodsLymphocytes/100 leukocytes in Blood by Automated [facility] - CantonMCH [Entitic mass] by Automated countThe Surgical Hospital At SouthwoodsMCHC [Mass/volume] by Automated [facility] - CantonMCV [Entitic volume] by Automated [facility] Monocytes [#/volume] in Blood by Automated countThe Surgical Hospital At SouthwoodsMonocytes/100 leukocytes in Blood by Automated countThe Surgical Hospital At SouthwoodsNeutrophils [#/volume] in Blood by Automated countThe Surgical Hospital At SouthwoodsNeutrophils/100 leukocytes in Blood by Automated count [facility]woodsNucleated erythrocytes [Presence] in Blood by Automated [facility] - CantonOpiates [Presence] in Urine [facility]woodsPatient EducationBellevue Hospital Medical Ctr Work Phone: Patient referralC[facility] Clinic [facility] Work Phone: Phencyclidine [Presence] in UrineThe Surgical Hospital At SouthwoodsPlatelet mean volume [Entitic volume] in Blood by Automated count [facility]woodsPlatelets [#/volume] in BloodAultman Alliance Community Hospitalpecimen source [Identifier] of Unspecified specimenAultman Alliance Community Hospitaltreptococcus pneumoniae Ag [Presence] in Unspecified specimenThe Surgical Hospital At SouthwoodsThiamine [Moles/volume] in Blood [facility]woodsThyroglobulin Ab [Units/volume] in Serum or PlasmaThe Surgical Hospital At SouthwoodsThyroperoxidase Ab [Units/volume] in Serum or PlasmaAdventHealth Lake Wales Payers DatePayer CategoryPayerPolicy [id number] 2025Self-pay [id number] [id number] [id number] [id number] 2..1.131085.3.57[id number] 2..1.285727.3.57[id number] 2.0.1.603349.3.57[id number] 2.0.1.495067.3.57[id number] 2.0.1.618433.3.579.2.732MedicaidMedicaid Out of [id number] [facility] [id number] 2.16.840.1.9[id number] 2.16.840.1.912448.3.579.2.531 [id number] 2.16.840.1.210406.3.579.2.751Zmbwgnm77901683 2.16.840.1.209523.3.579.2.531 Social History DateTypeDetailFacilityStart: 05-06-2024 End: 51-78-3463Dgsgnla smoking status NHISCurrent Heavy tobacco smokerAultman Alliance Community Hospitaltart: 51-51-2653Zog [facility]: 11-18-2024 End: 68-65-5005RcpNsql (finding)[facility] Hospitaltart: 11-18-2024 End: 02-21-8820Uuawcrp smoking status NHISUnknown if ever smokedAultman Alliance Community Hospitaltart: 58-90-1028AOHP Follow upSDOH [facility]Det[facility] Work Phone: Medical Equipment Procedure CodeEquipment CodeEquipment Original TextEquipment IdentifierDatesCL STENT XENIA FRONTIER 4.0 X 30FDAStart: 74-09-8994SE STENT XENIA FRONTIER 4.0 X 30 FDAStart: 06-07-2025 Goals DatePatient GoalDesired Activity/State Functional Status XsksYptupnnjjmMguqquAtrurkgh61-52-4105Ccabwgahrj statusPatient at Baseline [facility] Work Phone: [phone]) [phone]efhsqou statusPatient at Baseline [facility] Work Phone: Mental Status CwvjZuqgixsaddAkhmawVpcgmnfj48-21-5193Hvmrvalqs functionCognitive Status Patient at BaselineDet[facility]iler [facility] Hospital Work Phone: 1(563) 118-858206178724-37-2930Boslwfjay functionCognitive Status Patient [facility] BaselineUn[facility] Work Phone: Clinical Notes 05-02-2024 to 06-07-2025 Note Date & XcagWxxfTbfdyqyj33-68-7403 Evaluation note* Diagnosis Onset Date Resolution Status Admit Date History of seizure disorder acuteJuly 2024 8:22amPolysubstance abuseacuteJuly 2024 8:22amST elevation myocardial infarction (STEMI) of inferior wallacuteJuly 2024 8:22am [facility] Work Phone: 1(324) 619-136907-26-2025 Evaluation note* Diagnosis Onset Date Resolution Status [...] 7:25pmElevated troponinresolvedSeptember 2024 7:25pm SeizureresolvedSeptember 2024 7:25pm [facility] Work Phone: 1(482) 359-519107-26-2025 Evaluation note* Diagnosis Onset Date Resolution Status [...] 2024 7:25pmElevated troponinresolvedSeptember 2024 7:25pmSeizureresolvedSeptember 2024 7:25pm [facility] Work Phone: 1(756) 102-157401-08-2025 Progress note Author Yamila Donald [facility] Hospital [facility] SouthwoodsNote Date/TimeJanuary 2024 7:21pm[place] [address] Hospitalist Progress Note Signed Patient: Aaron Olivarez MR#: [id number] : 1960 Acct:[id number] Age/Sex: 64 / M Adm Date: 5 Loc: Room: [address] [place] [address] Type: ADM IN Attending Dr: Yamila Donald [...] signed by Yamila Donald MD> 11/20/24 192 [facility] Work Phone: 1(343) 367-633301-08-2025 Progress noteGarrett [place] [address]394170 Hospitalist Progress Note Signed Patient: Aaron Olivarez MR#: [id number] : 1960 Acct:[id number] Age/Sex: 64 / M Adm Date: 5 Loc: Room: [address] [place] [address] Type: ADM IN Attending Dr: Yamila Donald [...] Donald MD 11/20/24 1723 Signed By: 11/20/241920 [facility]01-08-2025 Progress note Author Yamila Donald [facility] SouthwoodsNote Date/TimeJanuary 2024 3:02[place] [address] Hospitalist Progress Note Signed Patient: Aaron Olivarez MR#: [id number] : 1960 Acct:[id number] Age/Sex: 64 / M Adm Date: 5 Loc: 4C Room: 8I5576-3 Type: ADM IN Attending Dr: Yamila Donald [...] Plan Documented By: Yamila Donald MD 11/19/24 8948 Signed By: <Electronically signed by Yamila Donald MD> 11/20/24 0307 [facility] Work Phone: 1(165) 170-218801-08-2025 [place] [address] Hospitalist Progress Note Signed Patient: Aaron Olivarez MR#: [id number] : 1960 Acct:[id number] Age/Sex: 64 / M Adm Date: 5 Loc: Room: [address] [place] [address] Type: ADM IN Attending Dr: Yamila Donald [...] Donald MD 11/19/242100 Signed By: 11/20/24 0302 [facility]01-07-2025 Progress note Author Neville Bush [facility] Hospital [facility] SouthwoodsNote Date/TimeJanuary 2024 6:02pmV[place] [address] Neurology Progress Note Signed Patient: Aaron Olivarez MR#: [id number] : 1960 Acct:[id number] Age/Sex: 64 / M Adm Date: 5 Loc: Room: [address] [place] [address] Type: ADM IN Attending Dr: Yamila Donald [...] this time. Outpatient neurology follow-up. Documented By: Nveille Bush DO 11/19/24 175 Signed By: <Electronically signed by Neville Bush DO> 11/19/24 7138 [facility] Work Phone: 1(384) 574-705201-07-2025 [place] [address] Neurology Progress Note Signed Patient: Aaron Olivarez MR#: [id number] : 1960 Acct:[id number] Age/Sex: 64 / M Adm Date: 5 Loc: Room: [address] [place] [address] Type: ADM IN Attending Dr: Yamila Donald [...] DO 11/19/24 1759 Signed By: 11/19/24 1802 [facility]01-07-2025 Progress note Author Yamila Donald [facility] Hospital [facility] SouthwoodsNote Date/TimeJanuary 2024 3:10am[place] [address] Hospitalist Progress Note Signed Patient: Aaron Olivarez MR#: [id number] : 1960 Acct:[id number] Age/Sex: 64 / M Adm Date: 5 Loc: Room: [address] [place] [address] Type: ADM IN Attending Dr: Yamila Donald [...] Lactated Ringers IV 11/18/24 17:34 70 mls/hr .[id number] CORBY Administration Levetiracetam 500 mg/ Dextrose 105 [...] signed by Yamila Donald MD> 11/19/24 0310 [facility] Work Phone: 1(995) 191-524101-07-2025 [place] [address] Hospitalist Progress Note Signed Patient: Aaron Olivarez MR#: [id number] : 1960 Acct:[id number] Age/Sex: 64 / M Adm Date: 5 Loc: Room: [address] [place] [address] Type: ADM IN Attending Dr: Yamila Donald [...] Lactated Ringers IV 11/18/24 17:34 70 mls/hr .[id number] CORBY Administration Levetiracetam 500 mg/ Dextrose 105 [...] MD 11/18/24 1646 Signed By: 11/19/24 0310 [facility]01-06-2025 Consult note Author Neville Bush [facility] Hospital [facility] SouthwoodsNote Date/TimeJanuary 2024 5:44pm[place] [address] Neurology Consult Note Signed Patient: Aaron Olivarez MR#: [id number] : 1960 Acct:[id number] Age/Sex: 64 / M Adm Date: 5 Loc: Room: [address] [place] [address] Type: ADM IN Attending Dr: Yamila Donald MD Copies to: DO Sulaiman Mosquera DO Marwan Wassouf, MD~ HPI Consult Date: 11/18/24 Riffler Tender: Neville Bush DO [facility] Medical History Heavy smoker Heroin use H/O ETOH abuse COPD (chronic obstructive pulmonary disease) Social History Smoking Status: Unknown if ever smoked Substance Use Type: Marijuana, Heroin and Methamphetamine Social History Comments: Moved from [place] to [place] to live with sonLamin. Meds Medications and [...] Dung Chakraborty M.D.11/17/2024 1:26 PM Dictation Location: [facility]--17 Assessment/Plan (1) Seizure: Plan CONSULT REASON: Seizure, [...] <Electronically signed by Neville Bush DO> 11/18/24 1622 [facility] Work Phone: 1(912) 333-279001-06-2025 Consult note Author Julito Mosley [facility] Hospital [facility] SouthwoodsNote Date/TimeJanuary 2024 4:27pm[place] [address] Cardiology Consult Note Signed Patient: Aaron Olivarez MR#: [id number] : 1960 Acct:[id number] Age/Sex: 64 / M Adm Date: 5 Loc: Room: [address] [place] [address] Type: ADM INOo Attending Dr: Yamila Donald [...] negative unless noted below or in HPI [facility] Medical History Heavy smoker Heroin use H/O ETOH abuse COPD (chronic obstructive pulmonary disease) Social History Smoking Status: Unknown if ever smoked Substance Use Type: Marijuana, Heroin and Methamphetamine Social History Comments: Moved from [place] to [place] to live with son, Lamin. Meds Medications [...] x10E3/uL Lymph # (Auto) 1.4 (1.00-4.8) x10E3/uL Branch # (Auto) 0.6 (0.0-0.8) x10E3/uL Eos # [...] @ 70 1000 / 1000 mls/hr IV .[id number] [facility] Rx#: [id number] levETIRAcetam 500 mg In 105 / 105 Dextrose 5 % in Water 100 ml @ 420 mls/hr IV BID [facility] Rx#: [id number] Output: Urine 500 / 500 Other: # [...] signed by Julito Mosley MD> 11/18/24 1627 [facility] Work Phone: 1(204) 335-646101-06-2025 [place] [address] Neurology Consult Note Signed Patient: Aaron Olivarez MR#: [id number] : 1960 Acct:[id number] Age/Sex: 64 / M Adm Date: 5 Loc: Room: [address] [place] [address] Type: ADM IN Attending Dr: Yamila Donald MD Copies to: DO Sulaiman Mosquera DO Marwan Wassouf, MD~ HPI Consult Date: 11/18/24 Riffler Tender: Neville Bush DO [facility] Medical History Heavy smoker Heroin use H/O ETOH abuse COPD (chronic obstructive pulmonary disease) Social History Smoking Status: Unknown if ever smoked Substance Use Type: Marijuana, Heroin and Methamphetamine Social History Comments: Moved from [place] to [place] to live with sonLamin. Meds Medications and [...] Dung Chakraborty M.D.11/17/2024 8:59 AM Dictation Location: [facility]- Chest X-Ray 11/17/24 12:57 IMPRESSION: No acute cardiopulmonary pathology. Impression dictated by: Dung Chakraborty M.D.11/17/2024 1:26 PM Dictation Location: [facility]--17 Assessment/Plan (1) Seizure: Plan CONSULT REASON: Seizure, [...] Bush DO 11/18/241737 Signed By: 11/18/24 1744 [facility]01-06-2025 [place] [address] Cardiology Consult Note Signed Patient: Aaron Olivarez MR#: [id number] : 1960 Acct:[id number] Age/Sex: 64 / M Adm Date: 5 Loc: Room: [address] [place] [address] Type: ADM INOo Attending Dr: Yamila Donald [...] negative unless noted below or in HPI [facility] Medical History Heavy smoker Heroin use H/O ETOH abuse COPD (chronic obstructive pulmonary disease) Social History Smoking Status: Unknown if ever smoked Substance Use Type: Marijuana, Heroin and Methamphetamine Social History Comments: Moved from [place] to [place] to live with son, Lamin. Meds Medications [...] x10E3/uL Lymph # (Auto) 1.4 (1.00-4.8) x10E3/uL Branch # (Auto) 0.6 (0.0-0.8) x10E3/uL Eos # [...] @ 70 1000 / 1000 mls/hr IV .[id number] [facility] Rx#: [id number] levETIRAcetam 500 mg In 105 / 105 Dextrose 5 % in Water 100 ml @ 420 mls/hr IV BID [facility] Rx#: [id number] Output: Urine 500 / 500 Other: # [...] MD 05/07 1612 Signed By: 11/18/24 1627 [facility]01-06-2025 Evaluation note* Diagnosis Onset Date Resolution Status Admit Date Acute CVA (cerebrovascular accident) acuteJanuary 2024 1:02pmAltered mental statusacuteJanuary 2024 1:02pm SeizureacuteJanuary 2024 1:02pmT wave inversion in EKGacuteJanuary 2024 1:02pm [facility] Work Phone: 1(540) 326-247901-05-2025 Progress note Author Chaz Frey [facility] Date/TimeJanuary 2024 2:[address] [address] Progress Note Signed Patient: Aaron Olivarez MR#: [id number] : 1960 Acct:[id number] Age/Sex: 64 / M Adm Date: 5 Loc: Room: [address] [place] [address] Type: ADM INOo Attending Dr: Chaz Frey [...] signed by Chaz Frey MD> 11/17/24 1400 [facility] Work Phone: 1(812) 163-358001-05-2025 History and physical note Author Chaz Frey [facility]woodsNote Date/TimeJanuary 2024 1:11[place] [address] Hospitalist H&P Signed Patient: Aaron Olivarez MR#: [id number] : 1960 Acct:[id number] Age/Sex: 64 / M Adm Date: 5 Loc: Room: [address] [place] [address] Type: ADM INOo Attending Dr: Chaz Frey [...] was made not to transfer him to [place] for thrombectomy. On-call stroke team recommended admission to [facility] for neurological andseizure workup with recommendation again [...] patient had stroke before or seizure history. [facility] Medical History Heavy smoker Heroin use H/O ETOH abuse COPD (chronic obstructive pulmonary disease) Social History Smoking Status: Heavy tobacco smoker Social History Comments: Moved from [place] to [place] to live with son, Lamin. Meds Medications [...] % (Auto) 4.4 % (.) 11/17/24 08: Branch % (Auto) 3.3 % (.) 11/17/24 08: Eos % (Auto) 0.1 % (.) 11/17/24 08: Baso % (Auto) 0.4 % (.) 11/17/24 08: Nucleat RBC Rel Count 0.1 /100 WBC (0-0.5) 11/17/24 08: Neut # (Auto) 9.2 x10E3/uL (1.8-7.7) H 11/17/24 08: Lymph # (Auto) 0.4 x10E3/uL (1.00-4.8) L 11/17/24 08: Branch # (Auto) 0.3 x10E3/uL (0.0-0.8) 11/17/24 08: [...] admit him to the medical floor at [place] I started him on aspirin and statin. [...] signed by Chaz Frey MD> 11/17/24 1311 [facility] Work Phone: 1(246) 557-397901-05-2025 [place] [address] Progress Note Signed Patient: Aaron Olivarez MR#: [id number] : 1960 Acct:[id number] Age/Sex: 64 / M Adm Date: 5 Loc: Room: [address] [place] [address] Type: ADM INOo Attending Dr: Chaz Frey [...] MD 11/17/24 1359 Signed By: 11/17/24 1400 [facility]01-05-2025 [place] [address] Hospitalist H&P Signed Patient: Aaron Olivarez MR#: [id number] : 1960 Acct:[id number] Age/Sex: 64 / M Adm Date: 5 Loc: Room: [address] [place] [address] Type: ADM INOo Attending Dr: Chaz Frey [...] was made not to transfer him to [place] for thrombectomy. On-call stroke team recommended admission to [facility] for neurological andseizure workup with recommendation again [...] patient had stroke before or seizure history. [facility] Medical History Heavy smoker Heroin use H/O ETOH abuse COPD (chronic obstructive pulmonary disease) Social History Smoking Status: Heavy tobacco smoker Social History Comments: Moved from [place] to [place] to live with son, Lamin. Meds Medications [...] % (Auto) 4.4 % (.) 11/17/24 08: Branch % (Auto) 3.3 % (.) 11/17/24 08:28 Eos % (Auto) 0.1 % (.) 11/17/24 08: Baso % (Auto) 0.4 % (.) 11/17/24 08: Nucleat RBC Rel Count 0.1 /100 WBC (0-0.5) 11/17/24 08:28 Neut # (Auto) 9.2 x10E3/uL (1.8-7.7) H 11/17/24 08:28 Lymph # (Auto) 0.4 x10E3/uL (1.00-4.8) L 11/17/24 08:28 Branch # (Auto) 0.3 x10E3/uL (0.0-0.8) 11/17/24 08:28 [...] admit him to the medical floor at [place] I started him on aspirin and statin. [...] MD 11/17/24 1301 Signed By: 11/17/24 1311 [facility]01-05-2025 Evaluation note* Diagnosis Onset Date Resolution Status Admit Date Acute CVA (cerebrovascular accident) acuteJanuary 2024 9:54amAltered mental statusacuteJanuary 2024 9:54am SeizureacuteJanuary 2024 9:54am [facility] Work Phone: 1(625) 939-626101-05-2025 Radiology Diagnostic study [facility] [place] [address] [place] [address] CT Scan Report Signed Patient: Aaron Olivarez MR#: [id number] : 1960 Acct:[id number] Age/Sex: 64 / M ADM Date: 5 Loc: ER Room: Type: PRE ER Attending Dr: Copies to: Jamin Sepulveda DO~ Ordering Provider: Jamin Sepulveda DO Date of Service: 11/17/24 CT/CT angio head: cva ([id number]) CT/CT angio neck: cva CT angio head, [...] Dung Chakraborty M.D.11/17/2024 8:59 AM Dictation Location: [place] [address] Transcribed By: [facility] 11/17/24858 Dictated By: Dung Chakraborty II, MD 11/17/24 0852 Signed By: 11/17/24858 [facility] Work Phone: 1(207) 505-493501-05-2025 [facility] [place] [address] [place] [address] CT Scan Report Signed Patient: Aaron Olivarez MR#: [id number] : 1960 Acct:[id number] Age/Sex: 64 / M ADM Date: 5 [...] Dung Chakraborty M.D.11/17/2024 8:43 AM Dictation Location: [place] [address] Transcribed By: [facility] 11/17/2443 Dictated By: Dung Chakraborty II, MD 11/17/2437 Signed By: 11/17/2443 [facility] Work Phone: 1(168) 558-133609-01-2024 NoteADDENDUM: Results were called to the ordering [...] Mati Valerio MD 07/14/24 Edited Result - [facility]06-24-2024 Discharge summary Author Kiko Maldonado [facility] May 06, 2024 2:21pmNote Date/TimeJune 2023 11:44[place] [address] Discharge Summary Signed Patient: Aaron Olivarez MR#: [id number] : 1960 Acct:[id number] Age/Sex: 63 / M Adm Date: 4 Loc: Room: [address] [place] [address]: Kiko Maldonado MD Copies to: [...] He presented to the emergency department at [facility] on May 01, with complaints of [...] signed by Kiko Maldonado MD> 05/06/24 1421 [facility] Work Phone: 1(616) 380-411306-24-2024 Progress note Author Thanh Raina [facility] May 06, 2024 10:16amNote Date/TimeJune 2023 10:[place] [id number] Pulmonology Progress Note Signed Patient: Aaron Olivarez MR#: [id number] : 1960 Acct:[id number] Age/Sex: 63 / M Adm Date: 4 Loc: Room: [address] [place] [address] Type: ADM IN Attending Dr: Janae Jose MD Copies to: ~ Date of Service: 05/06/2024 Subjective Subjective Narrative: Patient voices no complaints at the time my evaluation. He is very interested in being discharged today as he can relax at home as opposed to being in the hospital. He knows he is in a hospital butdoes not know that he is at [facility] in [place]. He also knows it is 2023. Exam [...] signed by MD Thanh Paris> 05/06/24 1016 [facility] Work Phone: 1(363) 569-495006-23-2024 Progress note Author Janae Jose [facility] May 05, 2024 1:27pmNote Date/TimeJune 2023 1:22pm[place] [address] Hospitalist Progress Note Signed Patient: Aaron Olivarez MR#: [id number] : 1960 Acct:[id number] Age/Sex: 63 / M Adm Date: 4 Loc: Room: [address] [place] [address] Type: ADM IN Attending Dr: Janae Jose [...] changes. Documented By: Janae Jose MD 05/05/24 1317 Signed By: <Electronically signed by Janae Jose MD> 05/05/24 1329 [facility] Work Phone: 1(734) 298-275206-23-2024 Progress note Author Víctor Agrawal [facility] May 05, 2024 11:29amNote Date/TimeJune 2023 11:[address] [address] Pulmonology Progress Note Signed Patient: Aaron Olivarez MR#: [id number] : 1960 Acct:[id number] Age/Sex: 63 / M Adm Date: 4 Loc: Room: [address] [place] [address] Type: ADM IN Attending Dr: Janae Jose [...] edema, no clubbing. Skin: No skin rash APPLICATION DEVELOPER: Sleepy, easily arousable, no focal deficits. Objective [...] signed by Víctor Agrawal MD> 05/05/24 1129 [facility] Work Phone: 1(262) 955-831006-22-2024 Progress note Author Janae Jose [facility] May 04, 2024 12:19pmNote Date/TimeJune 2023 12:13pm[place] [address] Hospitalist Progress Note Signed Patient: Aaron Olivarez MR#: [id number] : 1960 Acct:[id number] Age/Sex: 63 / M Adm Date: 4 Loc: Room: [address] [place] [address] Type: ADM IN Attending Dr: Janae Jose [...] signed by Janae Jose MD> 05/04/24 1219 [facility] Work Phone: 1(365) 725-877206-22-2024 Progress note Author Víctor Agrawal [facility] May 04, 2024 12:03pmNote Date/TimeJune 2023 11:54[place] [address] Pulmonology Progress Note Signed Patient: Aaron Olivarez MR#: [id number] : 1960 Acct:[id number] Age/Sex: 63 / M Adm Date: 4 Loc: Room: [address] [place] [address] Type: ADM IN Attending Dr: Janae Jose [...] Musculoskeletal: No edema Skin: No skin rash APPLICATION DEVELOPER: Drowsy and confused, does not interact or [...] signed by Víctor Agrawal MD> 05/04/24 1203 [facility] Work Phone: 1(948) 120-461706-21-2024 Progress note Author Víctor Agrawal [facility] May 03, 2024 1:57pmNote Date/TimeJune 2023 1:57pm[place] [address] Pulmonology Progress Note Signed Patient: Aaron Olivarez MR#: [id number] : 1960 Acct:[id number] Age/Sex: 63 / M Adm Date: 4 Loc: Room: [address] [place] [address] Type: ADM IN Attending Dr: Janae Jose [...] Musculoskeletal: No edema Skin: No skin rash APPLICATION DEVELOPER: Drowsy, 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 No focal deficits Objective Intake [...] <Electronically signed by Víctor Agrawal MD> 05/03/24 1467 [facility] Work Phone: 1(545) 180-226806-21-2024 Progress note Author Janae Jose [facility] May 03, 2024 12:57pmNote Date/TimeJune 2023 12:57pm[place] [address] Hospitalist Progress Note Signed Patient: Aaron Olivarez MR#: [id number] : 1960 Acct:[id number] Age/Sex: 63 / M Adm Date: 4 Loc: Room: [address] [place] [address] Type: ADM IN Attending Dr: Janae Jose [...] Janae Jose MD> 05/03/24 1257 [facility] Work Phone: 1(123) [phone] Progress note Author Janae Jose [facility] May 02, 2024 1:49pmNote Date/TimeJune 2023 1:[address] [address] Event Note Signed Patient: Aaron Olivarez MR#: [id number] : 1960 Acct:[id number] Age/Sex: 63 / M Adm Date: 4 Loc: Room: [address] [place] [address] Type: ADM IN Attending Dr: Janae Jose [...] Janae Jose MD> 05/02/24 1349 [facility] Work Phone: 1(975) 509-945506-20-2024 Consult note Author Víctor Agrawal [facility] May 02, 2024 1:47pmNote Date/TimeJune 2023 1:[address]pm[address] [address] Pulmonology Consult Note Signed Patient: Aaron Olivarez MR#: [id number] : 1960 Acct:[id number] Age/Sex: 63 / M Adm Date: 4 Loc: Room: [address] [place] [address] Type: ADM IN Attending Dr: Janae Jose [...] and history of hypertension was transferred from [place] ED directly into ICU. Apparently, patient was e xperiencing productive cough with thick yellow phlegm and increased shortness of breath prior to his presentation to [place] ED. Patient was found by familylethargic and difficult to arouse, oxygen saturation was 70% on room air, venousblood gas showed pCO2 of 80 with pH of 7.32. Patient refused BiPAP. Chest CT angiogram reported negative for PE, showed right lower lobe consolidation consistent with pneumonia. [facility] Social History Smoking Status: Heavy [...] Musculoskeletal: No edema Skin: No skin rash APPLICATION DEVELOPER: Drowsy, no focal deficits Results - Pulmonology [...] signed by Víctor Agrawal MD> 05/02/24 1347 [facility] Work Phone: 1([phone]) 335-502006-20-2024 History and physical note Author Magdy Douglass [facility] May 02, 2024 7:12amNote Date/TimeJune 2023 7:11am[place] [address] Hospitalist H&P Signed Patient: Aaron Olivarez MR#: [id number] : 1960 Acct:[id number] Age/Sex: 63 / M Adm Date: 4 Loc: Room: [address] [place] [address] Type: ADM IN Attending Dr: Janae Jose MD Copies to: MD Sulaiman Ruggiero DO Mazhar Rahman, MD~ HPI DATE OF EXAMINATION: 05/01/24 CHIEF COMPLAINT: cough, dyspnea, altered mental status HISTORY OF PRESENT ILLNESS: 63 year old man with history of HTN, COPD, tobacco abuse who presented to [place] ED with the above complaints. Per the patient for 2-3 days prior to admission he was having a cough productiveof thick yellow sputum and increasing dyspnea with exertion. On the date of presentation family members went to see thepatient and found that he was lethargic and difficult to arouse so he was brought to [place] ED for evaluation. On arrival there pulse [...] % (Auto) 7.8 % (.) 05/02/24 04:20 Branch % (Auto) 8.2 % (.) 05/02/24 04:20 Eos % (Auto) 0.0 % (.) 05/02/24 04:20 Baso % (Auto) 0.2 % (.) 05/02/24 04:20 Nucleat RBC Rel Count 0.2 /100 WBC (0-0.5) 05/02/24 04:20 Neut # (Auto) 6.3 x10E3/uL (1.8-7.7) 05/02/24 04:20 Lymph # (Auto) 0.6 x10E3/uL (1.00-4.8) L 05/02/24 04:20 Branch # (Auto) 0.6 x10E3/uL (0.0-0.8) 05/02/24 04:20 [...] Magdy Douglass MD> 05/02/24 0712 [facility] Work Phone: Consult note Author Patricio Galaviz [facility] May 06, 2024 1:01pmNote Date/TimeJune 2023 1:01pm[place] [address] Physiatry (Rehab) Consult Note Signed Patient: Aaron Olivarez MR#: [id number] : 1960 Acct:[id number] Age/Sex: 63 / M Adm Date: 4 Loc: Room: [address] [place] [address] Type: ADM IN Attending Dr: Kiko Maldonado [...] negative unless noted below or in HPI [facility] Medical History Heavy smoker Heroin use H/O ETOH abuse COPD (chronic obstructive pulmonary disease) Social History Smoking Status: Heavy tobacco smoker Social History Comments: Moved from [place] to [place] to live with sonLamin. Meds Medications and [...] chart, including current orders, allied health and category consultant notes, labs/imaging and performed fairbanks elements of exam and I formulated the plan of care and facilitated the medical decision making. I completed a substantive portion of this encounter, the medical decision making portion of this note in its entirety, including Allied health note review, nursing note review, category consultant note review, discussion with nursing and case management, and more than 50% of my time was spent on counseling and coordination of care, time spent 60 minutes Documented By: Patricio Galaviz MD 05/06/24 1251 Signed By: <Electronically signed by Patricio Galaviz MD> 05/06/24 1301 [facility] Work Phone: Consult note Author Julito Mosley [facility] Date/TimeJanuary 2024 4:27pm[place] [address] Cardiology Consult Note Signed Patient: Aaron Olivarez MR#: [id number] : 1960 Acct:[id number] Age/Sex: 64 / M Adm Date: 5 Loc: Room: [address] [place] [address] Type: ADM INOo Attending Dr: Yamila Donald [...] negative unless noted below or in HPI [facility] Medical History Heavy smoker Heroin use H/O ETOH abuse COPD (chronic obstructive pulmonary disease) Social History Smoking Status: Unknown if ever smoked Substance Use Type: Marijuana, Heroin and Methamphetamine Social History Comments: Moved from [place] to [place] to live with son, Lamin. Meds Medications [...] x10E3/uL Lymph # (Auto) 1.4 (1.00-4.8) x10E3/uL Branch # (Auto) 0.6 (0.0-0.8) x10E3/uL Eos # [...] @ 70 1000 / 1000 mls/hr IV .[id number] [facility] Rx#: [id number] levETIRAcetam 500 mg In 105 / 105 Dextrose 5 % in Water 100 ml @ 420 mls/hr IV BID [facility] Rx#: [id number] Output: Urine 500 / 500 Other: # [...] signed by Julito Mosley MD> 11/18/24 1627 [facility] Work Phone: Consult note Author Neville Bush [facility]woodsNote Date/TimeJanuary 2024 5:44pm[place] [address] Neurology Consult Note Signed Patient: Aaron Olivarez MR#: [id number] : 1960 Acct:[id number] Age/Sex: 64 / M Adm Date: 5 Loc: Room: [address] [place] [address] Type: ADM IN Attending Dr: Yamila Donald MD Copies to: DO Sulaiman Mosquera DO Marwan Wassouf, MD~ HPI Consult Date: 11/18/24 Riffler Tender: Neville Bush DO [facility] Medical History Heavy smoker Heroin use H/O ETOH abuse COPD (chronic obstructive pulmonary disease) Social History Smoking Status: Unknown if ever smoked Substance Use Type: Marijuana, Heroin and Methamphetamine Social History Comments: Moved from [place] to [place] to live with son, Lamin. Meds Medications [...] signed by Neville Bush DO> 11/18/24 1740 [facility] Work Phone: Evaluation note* Diagnosis Onset Date Resolution Status Acute exacerbation of chronic obstructiv e pulmonary disease (COPD) acuteAcute respiratory failure with hypoxia and hypercapniaacuteAlcohol abuse acuteAlcohol withdrawalacuteCommunity acquired pneumoniaacuteElevated troponin acuteHistory of heroin abuseacuteMetabolic encephalopathyacuteNicotine dependenceacuteRight lower lobe pneumoniaacuteTobacco abuseacuteUncontrolled hypertensionacute [facility] Work Phone: Progress note Author Yamila Donald [facility] Date/TimeJanuary 2024 3:10am[place] [address] Hospitalist Progress Note Signed Patient: Aaron Olivarez MR#: [id number] : 1960 Acct:[id number] Age/Sex: 64 / M Adm Date: 5 Loc: Room: [address] [place] [address] Type: ADM IN Attending Dr: Yamila Donald [...] Tablet PO 11/18/25 08:59 Not Given DAILY [facility] Atorvastatin Calcium 40 mg 11/17/24 21:00 11/17/24 [...] Lactated Ringers IV 11/18/24 17:34 70 mls/hr .[id number] [facility] Administration Levetiracetam 500 mg/ Dextrose 105 [...] Yamila Donald MD> 11/19/24 0310 [facility] Work Phone: Progress note Author Neville Bush [facility] Date/TimeJanuary 2024 6:02pm[place] [address] Neurology Progress Note Signed Patient: Aaron Olivarez MR#: [id number] : 1960 Acct:[id number] Age/Sex: 64 / M Adm Date: 5 Loc: Room: [address] [place] [address] Type: ADM IN Attending Dr: Yamila Donald [...] follow-up. Documented By: Neville Bush DO 11/19/24 7735 Signed By: <Electronically signed by Neville Bush DO> 11/19/24 6674 [facility] Work Phone: Progress note Author Yamila Donald [facility] Date/TimeJanuary 2024 3:02[place] [address] Hospitalist Progress Note Signed Patient: Aaron Olivarez MR#: [id number] : 1960 Acct:[id number] Age/Sex: 64 / M Adm Date: 5 Loc: Room: [address] [place] [address] Type: ADM IN Attending Dr: Yamila Donald [...] Tablet PO 11/18/25 08:59 Not Given DAILY [facility] Atorvastatin Calcium 40 mg 11/17/24 [...] Tablet PO 11/18/25 16:49 Not Given DAILY [facility] Lorazepam 1 mg 11/18/24 23:27 Lorazepam 2 Mg/Ml Vial IV-PUSH 05/17/25 01:05 Q4H PRN Agitation Lorazepam 2 mg 11/18/24 23:27 11/19/24 20:14 Lorazepam 2 Mg/Ml Vial IV-PUSH 05/17/25 16:43 2 mg Q4H PRN Administration Agitation Multivitamins 1 tab 11/19/24 09:00 11/19/24 09:19 Multivitamin 1 Tab Tablet PO 11/19/25 08:59 Not Given DAILY [facility] Sodium Chloride 0 ml 11/17/24 08:25 11/19/24 [...] signed by Yamila Donald MD> 11/20/24 0302 [facility] Work Phone: Progress note Author Yamila Donald [facility] Date/TimeJanuary 2024 7:21[place] [address] Hospitalist Progress Note Signed Patient: Aaron Olivarez MR#: [id number] : 1960 Acct:[id number] Age/Sex: 64 / M Adm Date: 5 Loc: Room: [address] [place] [address] Type: ADM IN Attending Dr: Yamila Donald [...] signed by Yamila Donald MD> 11/20/24 1921 [facility] Work Phone: Reason for referral (narrative)No reason for referral information availableCleveland Clinic [facility] Work Phone: Summary Purpose Family [...] Visit Admit Date Acute CVA (cerebrovascular accident) [facility] [employer] 2024 9:54am Altered mental status November 17, 2024 9:54am Seizure November 17, 2024 9: 54am Chief Complaint Admit Date neuro symptoms/fall November 18, 2024 1: 02pm neuro symptoms/fall November 18, 2024 4: 12pm Reason for Visit Admit Date Acute CVA (cerebrovascular accident) [facility] [place] 2024 1:02pm Altered mental status November 18, 2024 1:02pm Seizure November 18, 2024 1: 02pm T wave inversion in EKG November 18 1:02pm Chief Complaint Admit Date Grill Attendant June 07, 2025 8:22 am Reason for Visit Admit Date History of seizure disorder June 07 8:22am Polysubstance abuse June 07, 2025 8:[address] elevation myocardial infarction (STEM I) of inferior wall June 07, 2025 8:22am Chief Complaint Admit Date Grill Attendant June 07, 2025 8:22 am Unknown July [...] 31, 2025 7:25pm Chief Complaint Admit Date Grill Attendant June 07, 2025 8:22 am Unknown July [...] section and content) DATE CREATED AUTHOR 05/01/2018 [facility] DATE CREATED AUTHOR AUTHOR'S ORGANIZ ATION 05/04/2018 [facility] DATE CREATED AUTHOR AUTHOR'S ORGANIZ ATION 05/07/2018 [facility] DATE CREATED AUTHOR AUTHOR'S ORGANIZ ATION 05/09/2018 [facility] DATE CREATED AUTHOR AUTHOR'S ORGANIZ ATION 10/23/2018 [facility] DATE CREATED AUTHOR AUTHOR'S ORGANIZ ATION 11/28/2022 [facility] DATE CREATED AUTHOR AUTHOR'S ORGANIZ ATION 07/24/2024 [facility] DATE CREATED AUTHOR AUTHOR'S ORGANIZ ATION 11/24/2024 [facility] DATE CREATED AUTHOR AUTHOR'S ORGANIZ ATION 06/10/2025 [facility] DATE CREATED AUTHOR AUTHOR'S ORGANIZ ATION 09/02/2025 [facility] Care Teams (unrecognized sec tion [...] ProviderActiveStart: June 07, 2025 Alejandra Montenegro , CYIC-CXL-TYzkix ProviderActiveStart: June 07, 2025 Ratna Denton , POWERTRAIN DESIGN ENGINEER ACNP-BCOther ProviderActiveStart: June 07, 2025 Thanh Paris [...] 18, 2024 End: November 21shanice Amaro , SINKER WINDER-COther ProviderActiveStart: November 18, 2024 End: November 21, 2024Alejandra Montenegro , LZQH-AOC-UKyvxg ProviderActiveStart: November 18, 2024 End: November 21, [...] ProviderActiveStart: November 18, 2024 Janie Amaro , SINKER WINDER-COther ProviderActiveStart: November 18, 2024 Alejandra Montenegro , WMPY-BYR-AHgpmv ProviderActiveStart: November 18, 2024 Team Status: Active [...] ProviderActiveStart: November 17, 2024 Janie Amaro , SINKER WINDER-COther ProviderActiveStart: November 17, 2024 Alejandra Montenegro , GFVG-QLV-BVlppp ProviderActiveStart: November 17, 2024 Team Status: Inactive [...] ProviderActiveStart: July 31, 2025 Alejandra Montenegro , CKNN-ZMV-SBzyur ProviderActiveStart: July 31, 2025 Ratna Denton , POWERTRAIN DESIGN ENGINEER ACNP-BCOther ProviderActiveStart: July 31, 2025 Thanh Paris [...] ProviderActiveStart: July 31, 2025 Lissett Burdick , LEAD ORACLE DEVELOPER-BCOther ProviderActiveStart: July 31, 2025 Team Status: Active [...] ProviderActiveStart: August 07, 2025 Alejandra Montenegro , JCNH-ERS-MMscyi ProviderActiveStart: August 07, 2025 Ratna Denton , POWERTRAIN DESIGN ENGINEER ACNP-BCOther ProviderActiveStart: August 07, 2025 Thanh Paris MDAttending ProviderActiveStart: August 07, 2025 Thanh Paris MDOther ProviderActiveStart: August 07, 2025 Víctor Agrawal MDOther ProviderActiveStart: August 07, 2025 Neville Rojas MDOther ProviderActiveStart: August 07, 2025 Kota Carreno , DOOther ProviderActiveStart: August 07, 2025 Lizett Murray MDOther ProviderActiveStart: August 07, 2025 Brandy Wilburn MDOther ProviderActiveStart: August 07, 2025 Sherrie Perez MDOther ProviderActiveStart: August 07, 2025 Jaylin Fajardo RNOther ProviderActiveStart: August 07, 2025 Fely Dallas , DOOther ProviderActiveStart: August 07, 2025 Yasmine Jimenez MDOther ProviderActiveStart: August 07, 2025 Katherin Bell MDOther ProviderActiveStart: August 07, 2025 Carolyne Storey , APRNOther ProviderActiveStart: August 07, 2025 Laurel Hayes MDOther ProviderActiveStart: August 07, 2025 Lissett Burdick , LEAD ORACLE DEVELOPER-BCOther ProviderActiveStart: August 07, 2025 Kiko Maldonado MDOther [...] ProviderActiveStart: August 14, 2025 Alejandra Montenegro , KKWQ-HWP-BJcnyc ProviderActiveStart: August 14, 2025 Miko Montalvo MDOther [...] BE BASED ON THE PRIMARY CLINICAL RECORDS. [facility] [employer] provides no warranty or guarantee of the accuracy or completeness of information in this document.
--- NOTE | 2025-09-09 21:27 | PC.NURSE ---
pt bit tongue in ER. blood in mouth and dried blood around mouth and down his neck. Pt only responding to questions with, fuck off. Leave me the fuck alone. Pt was moved to bed from ER stretcher with the assist of multiple nurses. Pt screaming the whole time. Pt is in bed with bed alarm on and call light in reach. Pt was trying to throw himself out of bed and attempted to kick nurses. Valium was given.
[2025-09-10 03:32] VITALS: BP 164/87; PULSE 65
--- NOTE | 2025-09-10 06:20 | PC.NURSE ---
pt refused labs this morning. yelled at the techs, son of a bitch and to get out of his room.
--- OUTSIDE RECORDS SUMMARY | 2025-09-10 07:08 | XMS_ITS | Clinical Summary ---
Author Organization [facility] Address [address] [place] [address] Care Team Providers Care Director Of Reservations Name Role Phone Phys, Self-Refer Or No Pcp/Referring Primary Car e Provider Unavailable Allergies No known active allergies Social History Tobacco UseTypesPacks/DayYears UsedDateSmoking Tobacco: Never AssessedSex and Gender InformationValueDate RecordedSex Assigned at BirthNot on fileLegal Sex Male06/20/2020 4:19 PM EDTGender IdentityNot on fileSexual OrientationNot on file Last Filed Vital Signs Vital SignReadingTime TakenCommentsBlood Nyemcsex691/65012/25/2021 6:20 PM EST Acmyj9479/12/2022 6:20 PM FTKYodumkugcjg36.1 ??C (98.7 ??F)12/25/2021 6:20 PM ESTRespiratory Iwuw720412/25/2021 6:20 PM ESTOxygen Joxrpmvilj57%12/25/2021 6:20 PM ESTInhaled Oxygen Concentration--Keeitl75.7 kg (200 lb)12/25/2021 5:17 PM EST Vnaent776.4 cm (6' 1 )12/25/2021 5:17 PM ESTBody Mass Index26.39012/25/2021 5:17 PM EST Plan of Treatment Health MaintenanceDue DateLast DoneCommentsCologuard (average risk only) 1958 4172Zorxiwgtqdk1958Colorectal Cancer Htkeawpph1958FIT (average risk only)1958Hepatitis C Hdrfnskia1958DTaP,Tdap,and Td Vaccines (1 - Tdap)1977Pneumococcal Vaccines 50years [...]
--- OUTSIDE RECORDS SUMMARY | 2025-09-10 07:08 | XMS_ITS | Clinical Summary ---
Author Organization [facility] Address [address] [place] [address] Care Team Providers Care Aluminum Can Collector Name Role Phone Thanh Kenney DO Unavailable [phone] Social History Tobacco UseTypesPacks/DayYears UsedDateSmoking Tobacco: Never AssessedSex and Gender InformationValueDate RecordedSex Assigned at BirthNot on fileLegal Sex Male11/27/2024 2:37 PM ESTGender IdentityNot on fileSexual OrientationNot on file Plan of Treatment Not on file Insurance * Guarantor: Marbin Trujillo EAccount TypeRelation to PatientDate of BirthPhone Billing AddressPersonal/ZiinjaEuhz1960 [facility] [address] Care Teams Team MemberRelationshipSpecialtyStart DateEnd Date Thanh Kenney DO [address] [place] [id number] Referring PhysicianNeurology1
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
--- OUTSIDE RECORDS SUMMARY | 2025-09-10 07:09 | XMS_ITS | Clinical Summary ---
Author Organization [facility] Address [address] [place] [address] Phone Care Team Providers Care Prescription Eyeglass Maker Name Role Phone Sulaiman Feldman DO Primary Care Provider [phone] Encounters DateTypeDepartmentCare FsmkDrdjjkondbn64/20/2025Scanned Document [facility] [address] [place] [id number] Scanning, Generic Provider from Last 3 Months Social History Tobacco UseTypesPacks/DayYears UsedDateSmoking Tobacco: Never AssessedSex and Gender InformationValueDate RecordedSex Assigned at BirthNot on fileLegal Sex Male05/06/2024 10:09 AM EDTGender IdentityNot on fileSexual OrientationNot on file Plan of Treatment Health MaintenanceDue DateLast DoneCommentsCT Ewwzvteulygt1958Colonoscopy 1958Colorectal Cancer Qlxaaqwlm1958FIT-DNA (Cologuard)1958FIT 1958Lipid Panel1958Medicare Annual Wellness Visit (AWV)1958 Wgeujpvluataw1958MMR Vaccines (1 of 1 - Standard series)1959Diabetes Fisnlukgt76/22/1976Hepatitis C Fbwjfjzxd59/22/1976Pneumococcal Vaccine (1 of 2 - PCV)1977DTaP/Tdap/Td Vaccines (1 - Tdap)1980PSA Prostate Cancer Ravwpihmg62/22/2008Zoster Vaccines (1 of 2)2008RSV High Risk: (Elderly [...] MemberRelationshipSpecialtyStart DateEnd Date Sulaiman Feldman DO [address] [phone] PCP - General11/29/24
--- OUTSIDE RECORDS SUMMARY | 2025-09-10 07:11 | XMS_ITS | CCD ---
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 By: #### BMP, CBC ####[place] [address] USAEosinophils (Bld) [#/Vol]0.1 10*3/uLNormal 0.0-0.45The [facility] Physician GroupComment on above:Performed By: #### BMP, CBC ####[place] [address] [place] Eosinophils/100 WBC (Bld)1.0 %Normal.The [facility] Physician GroupComment on above:Performed By: #### BMP, CBC ####[place] [address] USAErythrocyte distribution width (RBC) [Ratio]13.7 % Xdfgmq59.0-14.8The [facility] Physician GroupComment on above:Performed By: #### BMP, CBC ####[place] [address] USAHematocrit (Bld) [Volume fraction]34.1 %Low38.8-50.0The [facility] Physician GroupComment on above:Performed By: #### BMP, CBC ####[place] [address] USAHemoglobin (Bld) [Mass/Vol]11.6 g/dL Low13.0-17.0The [facility] Physician GroupComment on above:Performed By: #### BMP, CBC ####[place] [address] USALymphocytes (Bld) [#/Vol]1.1 10*3/uLNormal1.00-4.8The [facility] Physician GroupComment on above:Performed By: #### BMP, CBC ####[place] [address] USALymphocytes/100 WBC (Bld)18.8 %Normal .The [facility] Physician GroupComment on above:Performed By: #### BMP, CBC ####[place] [address] USAMCH (RBC) [Entitic mass]30.5 mdJjoleg77.5-35.2The [facility] Physician GroupComment on above:Performed By: #### BMP, CBC ####[place] [address] USAMCV (RBC) [Entitic vol]89.4 eMMmpjen48.5-101 The [facility] Physician GroupComment on above:Performed By: #### BMP, CBC ####[address] [address] USAMean Corpuscular HGB Conc34.2 g/jYThdqyq21.5-35.6The [facility] Physician GroupComment on above:Performed By: #### BMP, CBC ####[address] [address] USAMonocytes (Bld) [#/Vol]0.4 10*3/uLNormal 0.0-0.8The [facility] Physician GroupComment on above:Performed By: #### BMP, CBC ####[place] [address] [place] Monocytes/100 WBC (Bld)7.4 %Normal.The [facility] Physician GroupComment on above:Performed By: #### BMP, CBC ####[place] [address] USANeutrophils (Bld) [#/Vol]4.3 10*3/uLNormal1.8-7.7The [facility] Physician GroupComment on above:Performed By: #### BMP, CBC ####[place] [address] [place] Neutrophils/100 WBC (Bld)72.0 %Normal.The [facility] Physician GroupComment on above:Performed By: #### BMP, CBC ####[place] [address] USANRBC%0.1 /100{WBC}Normal0-0.5The [facility] Physician GroupComment on above:Performed By: #### BMP, CBC ####[address] [address] USAPlatelet mean volume (Bld) [Entitic vol]8.0 fLNormal6.6-10.1The [facility] Physician GroupComment on above: Performed By: #### BMP, CBC ####[address] [address] USAPlatelets (Bld) [#/Vol]316 10*3/tFBtpude704-920Zqx [facility] Physician GroupComment on above:Performed By: #### BMP, CBC ####[place] [address] USARBC (Bld) [#/Vol]3.81 10*6/uLLow3.90-5.60The [facility] Physician GroupComment on above:Performed By: #### BMP, CBC ####[place] [address] USAWBC (Bld) [#/Vol]5.9 10*3/uLNormal4.1-10.5The [facility] Physician GroupComment on above:Performed By: #### BMP, CBC ####[place] [address] USAWhite Blood Count5.9 [CFU]/mLNormal4.1-10.5The [facility] Physician GroupComment on above:Performed By: #### BMP, CBC ####[place] [address] USABasic Metabolic Panelon 69-50-6016Hyrpr gap [Moles/Vol]9.1 mmol/LNormal6.0-15.0The [facility] Physician GroupComment on above:Performed By: #### CBC, BMP ####[place] [address] USACalcium [Mass/Vol]8.5 mg/dLLow8.6-10.3The [facility] Physician GroupComment on above:Performed By: #### CBC, BMP ####[place] [address] USAChloride [Moles/Vol] 103 mmol/YInumnw49-681Kmw [facility] Physician GroupComment on above:Performed By: #### CBC, BMP ####[place] [address] USACO2 [Moles/Vol]27.2 mmol/HQzkbsj46.0-31.0The [facility] Physician GroupComment on above:Performed By: #### CBC, BMP ####[place] [address] USACreatinine [Mass/Vol]0.92 mg/dLNormal 0.70-1.30The [facility] Physician GroupComment on above:Performed By: #### CBC, BMP ####[address] [address] [place] Creatinine Clr Calc Fezmoidq60.65NormalThe [facility] Physician GroupComment on above:Result Comment: PERFORMED BY:[address] [place], [place] [phone] MEDICAL ELÍAS GERMAN M.D.Performed By: #### CBC, BMP ####[address] [address] USAGFR/1.73 sq M.predicted MDRD (S/P/Bld) [Vol rate/Area]mL/min/{1.73_m2}NormalThe [facility] Physician GroupComment on above: Performed By: #### CBC, BMP ####[place] [address] USAGlucose [Mass/Vol]80 mg/rBCthqtm88-765Zbd [facility] Physician [facility] HospitalComment on above:Result Comment: Random Glucose Reference Range is dependent on time and content of last meal. Glucose of more than 200 mg/dL in a nonstressed, ambulatory subject supports the diagnosis of Diabetes Mellitus. ADA recommended reference rangePerformed By: #### CBC, BMP ####[address] [address] USAPotassium [Moles/Vol] 3.3 mmol/LLow3.5-5.1The [facility] Physician [facility] HospitalComment on above:Performed By: #### CBC, BMP ####[address] [address] USASodium [Moles/Vol]136 mmol/WIwbtxw126-959Lhy [facility] Physician Group Comment on above:Performed By: #### CBC, BMP ####[address] [address] USAUrea nitrogen [Mass/Vol]17 mg/dLNormal 7-25The [facility] Physician GroupComment on above:Performed By: #### CBC, BMP ####[address] [address] [facility] Complete Blood Count Auto Diffon [id number] (Bld) [#/Vol]0.1 10*3/uL Normal0.0-0.2The [facility] Physician GroupComment on above:Result Comment: PERFORMED BY:[address] [place], [place] [phone] MEDICAL DIRECTORCELESTE GERMAN M.D.Performed By: #### CBC, BMP ####[address] [address] USABasophils/100 WBC (Bld)0.8 %Normal.The [facility] Physician GroupComment on above:Performed By: #### CBC, BMP ####[address] [address] USAEosinophils (Bld) [#/Vol]0.0 10*3/uLNormal 0.0-0.45The [facility] Physician GroupComment on above:Performed By: #### CBC, BMP ####[address] [address] [place] Eosinophils/100 WBC (Bld)0.4 %Normal.The [facility] Physician GroupComment on above:Performed By: #### CBC, BMP ####[address] [address] USAErythrocyte distribution width (RBC) [Ratio]13.7 % Xdeqrc88.0-14.8The [facility] Physician GroupComment on above:Performed By: #### CBC, BMP ####[address] [address] USAHematocrit (Bld) [Volume fraction]37.4 %Low38.8-50.0The [facility] Physician GroupComment on above:Performed By: #### CBC, BMP ####[address] [address] USAHemoglobin (Bld) [Mass/Vol]12.6 g/dL Low13.0-17.0The [facility] Physician GroupComment on above:Performed By: #### CBC, BMP ####[place] [address] USALymphocytes (Bld) [#/Vol]1.0 10*3/uLNormal1.00-4.8The [facility] Physician GroupComment on above:Performed By: #### CBC, BMP ####[place] [address] USALymphocytes/100 WBC (Bld)11.3 %Normal .The [facility] Physician GroupComment on above:Performed By: #### CBC, BMP ####[address] (RBC) [Entitic mass]30.2 okAqfutm13.5-35.2The [facility] Physician GroupComment on above:Performed By: #### CBC, BMP ####[address] (RBC) [Entitic vol]89.8 jMRvweqe17.5-101 The [facility] Physician GroupComment on above:Performed By: #### CBC, BMP ####[place] [address] USAMean Corpuscular HGB Conc33.6 g/rXCveidq26.5-35.6The [facility] Physician GroupComment on above:Performed By: #### CBC, BMP ####[place] [address] USAMonocytes (Bld) [#/Vol]0.7 10*3/uLNormal 0.0-0.8The [facility] Physician GroupComment on above:Performed By: #### CBC, BMP ####[place] [address] [place] Monocytes/100 WBC (Bld)7.8 %Normal.The [facility] Physician GroupComment on above:Performed By: #### CBC, BMP ####[place] [address] USANeutrophils (Bld) [#/Vol]6.9 10*3/uLNormal1.8-7.7The [facility] Physician GroupComment on above:Performed By: #### CBC, BMP ####[place] [address] [place] Neutrophils/100 WBC (Bld)79.7 %Normal.The [facility] Physician GroupComment on above:Performed By: #### CBC, BMP ####[place] [address] USANRBC%0.0 /100{WBC}Normal0-0.5The [facility] Physician GroupComment on above:Performed By: #### CBC, BMP ####[place] [address] USAPlatelet mean volume (Bld) [Entitic vol]8.1 fLNormal6.6-10.1The [facility] Physician GroupComment on above: Performed By: #### CBC, BMP ####[place] [address] USAPlatelets (Bld) [#/Vol]340 10*3/bFKwmgtj961-708Eal [facility] Physician GroupComment on above:Performed By: #### CBC, BMP ####[place] [address] USARBC (Bld) [#/Vol]4.16 10*6/uLNormal3.90-5.60The [facility] Physician GroupComment on above:Performed By: #### CBC, BMP ####[place] [address] USAWBC (Bld) [#/Vol]8.7 10*3/uLNormal4.1-10.5The [facility] Physician GroupComment on above:Performed By: #### CBC, BMP ####[place] [address] USAWhite Blood Count8.7 [CFU]/mLNormal4.1-10.5The [facility] Physician GroupComment on above:Performed By: #### CBC, BMP ####[address] [address] USABasic Metabolic Panelon 05-46-3348Ssuik gap [Moles/Vol]9.5 mmol/LNormal6.0-15.0The [facility] Physician GroupComment on above:Performed By: #### BMP ####[address] [address] USACalcium [Mass/Vol]8.1 mg/dLLow8.6-10.3The [facility] Physician GroupComment on above:Performed By: #### BMP ####[address] [address] USAChloride [Moles/Vol]105 mmol/L Qvekwg41-757Lwz [facility] Physician GroupComment on above:Performed By: #### BMP ####[address] [address] USACO2 [Moles/Vol]22.6 mmol/BPqshce98.0-31.0The [facility] Physician GroupComment on above:Performed By: #### BMP ####[address] [address] USACreatinine [Mass/Vol]0.88 mg/dLNormal0.70-1.30The [facility] Physician GroupComment on above:Performed By: #### BMP ####[address] [address] USACreatinine Clr Calc Icrthyld16.41NormalThe [facility] Physician GroupComment on above:Result Comment: PERFORMED BY:[address] [place], [place] [phone] MEDICAL ELÍAS GERMAN M.D.Performed By: #### BMP ####[address] [address] USAGFR/1.73 sq M.predicted MDRD (S/P/Bld) [Vol rate/Area]mL/min/{1.73_m2}Normal The [facility] Physician GroupComment on above:Performed By: #### BMP ####[address] [place] [address] USAGlucose [Mass/Vol]83 mg/mZYlkrwf39-114Yzp [facility] Physician GroupComment on above: Result Comment: Random Glucose Reference Range is dependent on time and content of last meal. Glucose of more than 200 mg/dL in a nonstressed, ambulatory subject supports the diagnosis of Diabetes Mellitus. ADA recommended reference rangePerformed By: #### BMP ####[place] [address] USAPotassium [Moles/Vol]4.1 mmol/LNormal3.5-5.1The [facility] Physician GroupComment on above:Result Comment: Hemolysis is present at a level that could interfere with the result. Contact lab if redraw is requiredPerformed By: #### BMP ####[place] [address] USASodium [Moles/Vol]133 mmol/ZNbw531-867Wmy [facility] Physician GroupComment on above:Performed By: #### BMP ####[place] [address] USAUrea nitrogen [Mass/Vol]25 mg/dLNormal7-25The [facility] Physician GroupComment on above:Performed By: #### BMP ####[place] [address] [facility] Complete Blood Count Auto Diffon [id number] (Bld) [#/Vol]0.0 10*3/uL Normal0.0-0.2The [facility] Physician GroupComment on above:Result Comment: PERFORMED BY:[address] [place], [place] [phone] MEDICAL DIRECTORCELESTE GERMAN M.D.Performed By: #### CBC ####[place] [address] USABasophils/100 WBC (Bld)0.7 %Normal.The [facility] Physician GroupComment on above:Performed By: #### CBC ####[place] [address] USAEosinophils (Bld) [#/Vol]0.0 10*3/uLNormal0.0-0.45 The [facility] Physician GroupComment on above:Performed By: #### CBC ####[address] Eosinophils/100 WBC (Bld)0.6 %Normal.The [facility] Physician GroupComment on above:Performed By: #### CBC ####[address] StreetErythrocyte distribution width (RBC) [Ratio]14.2 % Ujuxnz48.0-14.8The [facility] Physician GroupComment on above:Performed By: #### CBC ####[address] Hematocrit (Bld) [Volume fraction]36.4 %Low38.8-50.0The [facility] Physician GroupComment on above:Performed By: #### CBC ####[place] [address] USAHemoglobin (Bld) [Mass/Vol]12.1 g/dL Low13.0-17.0The [facility] Physician GroupComment on above:Performed By: #### CBC ####[address] Lymphocytes (Bld) [#/Vol]0.8 10*3/uLLow1.00-4.8The [facility]ician Group Comment on above:Performed By: #### CBC ####[place] [address] USALymphocytes/100 WBC (Bld)11.7 %Normal.The [facility] Physician GroupComment on above:Performed By: #### CBC ####[place] [address] USAMCH (RBC) [Entitic mass]30.3 ozPegvxa40.5-35.2The [facility] Physician GroupComment on above: Performed By: #### CBC ####[place] [address] USAMCV (RBC) [Entitic vol]91.2 wNXbzvtd47.5-101The [facility] Physician GroupComment on above:Performed By: #### CBC ####[place] [address] USAMean Corpuscular HGB Conc33.2 g/kJJswvxk10.5-35.6The [facility] Physician GroupComment on above: Performed By: #### CBC ####[place] [address] USAMonocytes (Bld) [#/Vol]0.5 10*3/uLNormal0.0-0.8The [facility] Physician GroupComment on above:Performed By: #### CBC ####[place] [address] USAMonocytes/100 WBC (Bld)7.0 %Normal.The [facility] Physician GroupComment on above:Performed By: #### CBC ####[place] [address] USANeutrophils (Bld) [#/Vol]5.2 10*3/uLNormal1.8-7.7The [facility] Physician GroupComment on above:Performed By: #### CBC ####[place] [address] USANeutrophils/100 WBC (Bld)80.0 %Normal. The [facility] Physician GroupComment on above:Performed By: #### CBC ####[place] [address] USANRBC% 0.0 /100{WBC}Normal0-0.5The [facility] Physician GroupComment on above:Performed By: #### CBC ####[place] [address] USAPlatelet mean volume (Bld) [Entitic vol]8.0 fLNormal6.6-10.1The [facility] Physician GroupComment on above:Performed By: #### CBC ####[place] [address] USAPlatelets (Bld) [#/Vol]257 10*3/wYGcbilr272-328Rwx [facility] Physician GroupComment on above: Performed By: #### CBC ####[address] [address] USARBC (Bld) [#/Vol]3.98 10*6/uLNormal3.90-5.60The [facility] Physician GroupComment on above:Performed By: #### CBC ####[place] [address] USAWBC (Bld) [#/Vol]6.5 10*3/uLNormal4.1-10.5The [facility] Physician GroupComment on above:Performed By: #### CBC ####[place] [address] USAWhite Blood Count6.5 [CFU]/mLNormal4.1-10.5The [facility]ician Group Comment on above:Performed By: #### CBC ####[place] [address] USABasic Metabolic Panelon 12-31-8748Ujevc gap [Moles/Vol]8.3 mmol/LNormal6.0-15.0The [facility] Physician GroupComment on above:Performed By: #### BMP, CBC ####[place] [address] USACalcium [Mass/Vol]8.5 mg/dLLow8.6-10.3The [facility] Physician GroupComment on above:Performed By: #### BMP, CBC ####[place] [address] USAChloride [Moles/Vol] 101 mmol/ULxveoo79-163Act [facility] Physician GroupComment on above:Performed By: #### BMP, CBC ####[place] [address] USACO2 [Moles/Vol]31.6 mmol/LHigh21.0-31.0The [facility]ician Group Comment on above:Performed By: #### BMP, CBC ####[address] [address] USACreatinine [Mass/Vol]1.10 mg/dLNormal 0.70-1.30The [facility] Physician GroupComment on above:Performed By: #### BMP, CBC ####[address] [address] [place] Creatinine Clr Calc Uwokyhfq37.53NormalThe [facility] Physician GroupComment on above:Result Comment: PERFORMED BY:[address] [place], [place] [phone] MEDICAL ELÍAS GERMAN M.D.Performed By: #### BMP, CBC ####[address] [address] USAGFR/1.73 sq M.predicted MDRD (S/P/Bld) [Vol rate/Area]mL/min/{1.73_m2}NormalThe [facility] Physician GroupComment on above: Performed By: #### BMP, CBC ####[address] [address] USAGlucose [Mass/Vol]95 mg/dHMnmpkg24-154Pxk [facility] Physician GroupComment on above:Result Comment: Random Glucose Reference Range is dependent on time and content of last meal. Glucose of more than 200 mg/dL in a nonstressed, ambulatory subject supports the diagnosis of Diabetes Mellitus. ADA recommended reference rangePerformed By: #### BMP, CBC ####[address] [address] USAPotassium [Moles/Vol] 3.9 mmol/LNormal3.5-5.1The [facility] Physician GroupComment on above:Performed By: #### BMP, CBC ####[address] [address] USASodium [Moles/Vol]137 mmol/SZjkxuj000-657Gni [facility] Physician GroupComment on above:Performed By: #### BMP, CBC ####[address] [address] USAUrea nitrogen [Mass/Vol]33 mg/dLHigh 7-25The [facility] Physician GroupComment on above:Performed By: #### BMP, CBC ####[place] [address] [facility] Complete Blood Count Auto Diffon [id number] (Bld) [#/Vol]0.0 10*3/uL Normal0.0-0.2The [facility] Physician GroupComment on above:Result Comment: PERFORMED BY:[address] [place], [place] [phone] MEDICAL DIRECTORCELESTE GERMAN M.D.Performed By: #### BMP, CBC ####[place] [address] USABasophils/100 WBC (Bld)0.8 %Normal.The [facility] Physician GroupComment on above:Performed By: #### BMP, CBC ####[place] [address] USAEosinophils (Bld) [#/Vol]0.0 10*3/uLNormal 0.0-0.45The [facility] Physician GroupComment on above:Performed By: #### BMP, CBC ####[place] [address] [place] Eosinophils/100 WBC (Bld)0.9 %Normal.The [facility] Physician GroupComment on above:Performed By: #### BMP, CBC ####[place] [address] USAErythrocyte distribution width (RBC) [Ratio]14.4 % Qlspse61.0-14.8The [facility] Physician GroupComment on above:Performed By: #### BMP, CBC ####[place] [address] USAHematocrit (Bld) [Volume fraction]33.5 %Low38.8-50.0The [facility] Physician GroupComment on above:Performed By: #### BMP, CBC ####[place] [address] USAHemoglobin (Bld) [Mass/Vol]11.1 g/dL Low13.0-17.0The [facility] Physician GroupComment on above:Performed By: #### BMP, CBC ####[place] [address] USALymphocytes (Bld) [#/Vol]1.0 10*3/uLNormal1.00-4.8The [facility] Physician GroupComment on above:Performed By: #### BMP, CBC ####[place] [address] USALymphocytes/100 WBC (Bld)17.1 %Normal .The [facility] Physician GroupComment on above:Performed By: #### BMP, CBC ####[address] (RBC) [Entitic mass]30.1 xlBlszzs14.5-35.2The [facility] Physician GroupComment on above:Performed By: #### BMP, CBC ####[address] (RBC) [Entitic vol]90.5 nGExklnq51.5-101 The [facility] Physician GroupComment on above:Performed By: #### BMP, CBC ####[place] [address] USAMean Corpuscular HGB Conc33.2 g/hARjpowu74.5-35.6The [facility] Physician GroupComment on above:Performed By: #### BMP, CBC ####[place] [address] USAMonocytes (Bld) [#/Vol]0.4 10*3/uLNormal 0.0-0.8The [facility] Physician GroupComment on above:Performed By: #### BMP, CBC ####[place] [address] [place] Monocytes/100 WBC (Bld)6.3 %Normal.The [facility] Physician GroupComment on above:Performed By: #### BMP, CBC ####[address] [address] USANeutrophils (Bld) [#/Vol]4.3 10*3/uLNormal1.8-7.7The [facility] Physician GroupComment on above:Performed By: #### BMP, CBC ####[address] [address] [place] Neutrophils/100 WBC (Bld)74.9 %Normal.The [facility] Physician GroupComment on above:Performed By: #### BMP, CBC ####[place] [address] USANRBC%0.2 /100{WBC}Normal0-0.5The [facility] Physician GroupComment on above:Performed By: #### BMP, CBC ####[place] [address] USAPlatelet mean volume (Bld) [Entitic vol]8.2 fLNormal6.6-10.1The [facility] Physician GroupComment on above: Performed By: #### BMP, CBC ####[place] [address] USAPlatelets (Bld) [#/Vol]200 10*3/mSBjyqne694-475Elr [facility] Physician GroupComment on above:Performed By: #### BMP, CBC ####[place] [address] USARBC (Bld) [#/Vol]3.70 10*6/uLLow3.90-5.60The [facility] Physician GroupComment on above:Performed By: #### BMP, CBC ####[address] [address] USAWBC (Bld) [#/Vol]5.7 10*3/uLNormal4.1-10.5The [facility] Physician GroupComment on above:Performed By: #### BMP, CBC ####[place] [address] USAWhite Blood Count5.7 [CFU]/mLNormal4.1-10.5The [facility] Physician GroupComment on above:Performed By: #### BMP, CBC ####[address] [address] USABasic Metabolic Panelon 66-19-4335Griwb gap [Moles/Vol]8.6 mmol/LNormal6.0-15.0The [facility] Physician GroupComment on above:Performed By: #### BMP, CBC ####[address] [address] USACalcium [Mass/Vol]8.3 mg/dLLow8.6-10.3The [facility] Physician GroupComment on above:Performed By: #### BMP, CBC ####[address] [address] USAChloride [Moles/Vol] 105 mmol/LPhoevk13-045Icy [facility] Physician GroupComment on above:Performed By: #### BMP, CBC ####[address] [address] USACO2 [Moles/Vol]32.7 mmol/LHigh21.0-31.0[facility] Comment on above:Performed By: #### BMP, CBC ####[place] [id number] USACreatinine [Mass/Vol]1.05 mg/dLNormal 0.70-1.30The [facility] Physician GroupComment on above:Performed By: #### BMP, CBC ####[address] [address] [place] Creatinine Clr Calc Evrwlvej78.23NormalThe [facility] Physician GroupComment on above:Result Comment: PERFORMED BY:[address] [place], [place] [phone] MEDICAL DIRECTORCELESTE GERMAN M.D.Performed By: #### BMP, CBC ####[address] [address] USAGFR/1.73 sq M.predicted MDRD (S/P/Bld) [Vol rate/Area]mL/min/{1.73_m2}NormalThe [facility] Physician GroupComment on above: Performed By: #### BMP, CBC ####[address] [address] USAGlucose [Mass/Vol]87 mg/mQUjhxmq20-351Ccq [facility] Physician GroupComment on above:Result Comment: Random Glucose Reference Range is dependent on time and content of last meal. Glucose of more than 200 mg/dL in a nonstressed, ambulatory subject supports the diagnosis of Diabetes Mellitus. ADA recommended reference rangePerformed By: #### BMP, CBC ####[address] [address] USAPotassium [Moles/Vol] 4.3 mmol/LNormal3.5-5.1The [facility] Physician GroupComment on above:Performed By: #### BMP, CBC ####[place] [address] USASodium [Moles/Vol]142 mmol/BElezmm199-274Dvm [facility] Physician GroupComment on above:Performed By: #### BMP, CBC ####[address] [address] USAUrea nitrogen [Mass/Vol]30 mg/dLHigh 7-25The [facility] Physician GroupComment on above:Performed By: #### BMP, CBC ####[place] [address] [place] Complete Blood Count Auto Diffon 35-04-0143Kamfctauz (Bld) [#/Vol]0.1 10*3/uL Normal0.0-0.2The [facility] Physician GroupComment on above:Result Comment: PERFORMED BY:[address] [place], [place] [phone] MEDICAL DIRECTORCELESTE GERMAN M.D.Performed By: #### BMP, CBC ####[place] [address] USABasophils/100 WBC (Bld)0.8 %Normal.The [facility] Physician GroupComment on above:Performed By: #### BMP, CBC ####[address] [place] [address] USAEosinophils (Bld) [#/Vol]0.0 10*3/uLNormal 0.0-0.45The [facility] Physician GroupComment on above:Performed By: #### BMP, CBC ####[place] [address] [place] Eosinophils/100 WBC (Bld)0.6 %Normal.The [facility] Physician GroupComment on above:Performed By: #### BMP, CBC ####[place] [address] USAErythrocyte distribution width (RBC) [Ratio]15.0 % High12.0-14.8The [facility] Physician GroupComment on above:Performed By: #### BMP, CBC ####[place] [address] USAHematocrit (Bld) [Volume fraction]35.8 %Low38.8-50.0The [facility] Physician GroupComment on above:Performed By: #### BMP, CBC ####[place] [address] USAHemoglobin (Bld) [Mass/Vol]11.8 g/dL Low13.0-17.0The [facility] Physician GroupComment on above:Performed By: #### BMP, CBC ####[place] [address] USALymphocytes (Bld) [#/Vol]0.8 10*3/uLLow1.00-4.8[facility] Comment on above:Performed By: #### BMP, CBC ####[place] [address] USALymphocytes/100 WBC (Bld)13.2 %Normal. The [facility] Physician GroupComment on above:Performed By: #### BMP, CBC ####[place] [address] USAMCH (RBC) [Entitic mass]30.2 vnEmbfyj19.5-35.2The [facility] Physician GroupComment on above:Performed By: #### BMP, CBC ####[place] [address] USAMCV (RBC) [Entitic vol]92.0 jRPtgpaw98.5-101 The [facility] Physician GroupComment on above:Performed By: #### BMP, CBC ####[place] [address] USAMean Corpuscular HGB Conc32.8 g/aJSijggw70.5-35.6The [facility] Physician GroupComment on above:Performed By: #### BMP, CBC ####[place] [address] USAMonocytes (Bld) [#/Vol]0.3 10*3/uLNormal 0.0-0.8The [facility] Physician GroupComment on above:Performed By: #### BMP, CBC ####[place] [address] [place] Monocytes/100 WBC (Bld)4.9 %Normal.The [facility] Physician GroupComment on above:Performed By: #### BMP, CBC ####[place] [address] USANeutrophils (Bld) [#/Vol]5.1 10*3/uLNormal1.8-7.7The [facility] Physician GroupComment on above:Performed By: #### BMP, CBC ####[place] [address] [place] Neutrophils/100 WBC (Bld)80.5 %Normal.The [facility] Physician GroupComment on above:Performed By: #### BMP, CBC ####[place] [address] USANRBC%0.2 /100{WBC}Normal0-0.5The [facility] Physician GroupComment on above:Performed By: #### BMP, CBC ####[place] [address] USAPlatelet mean volume (Bld) [Entitic vol]8.0 fLNormal6.6-10.1The [facility] Physician GroupComment on above: Performed By: #### BMP, CBC ####[address] [address] USAPlatelets (Bld) [#/Vol]213 10*3/hBDuwddk584-055Vba [facility] Physician GroupComment on above:Performed By: #### BMP, CBC ####[place] [address] USARBC (Bld) [#/Vol]3.89 10*6/uLLow3.90-5.60The [facility] Physician GroupComment on above:Performed By: #### BMP, CBC ####[place] [address] USAWBC (Bld) [#/Vol]6.4 10*3/uLNormal4.1-10.5The [facility] Physician GroupComment on above:Performed By: #### BMP, CBC ####[place] [address] USAWhite Blood Count6.4 [CFU]/mLNormal4.1-10.5The [facility] Physician GroupComment on above:Performed By: #### BMP, CBC ####[place] [address] USAGlucose Poct Glucometerson 35-55-1341Gccmtvw0Zyi4: Cleaned [facility] Physician [facility] HospitalComment on above:Result Comment: PERFORMED BY:[address] [place], [place] [phone] MEDICAL ELÍAS GERMAN M.D.Performed By: #### GLULS ####Point of Care testing,Glucose [Mass/Vol]111 mg/dLMorton Plant Hospital Physician [facility] HospitalComment on above:Result Comment: Random Glucose Reference Range is dependent on time and content of last meal. Glucose of more than 200 mg/dL in a nonstressed, ambulatory subject supports the diagnosis of Diabetes Mellitus.Performed By: #### GLULS ####Point of Care testing,Commemt1 Glu2: Cleaned MeterNormalThe [facility]lands Physician GroupComment on above:Result Comment: PERFORMED BY:[address] CANDELARIOJeremiSHAR, [place] [phone] MEDICAL DIRECTORCELESTE GERMAN M.D.Performed By: #### GLULS ####Point of Care testing,Glucose [Mass/Vol]97 mg/dLMorton Plant Hospital Physician GroupComment on above:Result Comment: Random Glucose Reference Range is dependent on time and content of last meal. Glucose of more than 200 mg/dL in a nonstressed, ambulatory subject supports the diagnosis of Diabetes Mellitus.Performed By: #### GLULS ####Point of Care testing,Glucose [Mass/Vol]101 mg/dLMorton Plant Hospital Physician GroupComment on above:Result Comment: Random Glucose Reference Range is dependent on time and content of last meal. Glucose of more than 200 mg/dL in a nonstressed, ambulatory subject supports the diagnosis of Diabetes Mellitus.PERFORMED BY:[place] [address] [address] CANDELARIOJeremiSHAR, [place] [phone] MEDICAL ELÍAS GERMAN M.D.Performed By: #### GLULS ####Point of Care testing, Rvfuxox5Ria9: Cleaned MeterMorton Plant Hospital Physician GroupComment on above: Result Comment: PERFORMED BY:[address] CANDELARIOJeremiSHAR, [place] [phone] MEDICAL ELÍAS GERMAN M.D.Performed By: #### GLULS ####Point of Care testing,Glucose [Mass/Vol]110 mg/dLMorton Plant Hospital Physician GroupComment on above:Result Comment: Random Glucose Reference Range is dependent on time and content of last meal. Glucose of more than 200 mg/dL in a nonstressed, ambulatory subject supports the diagnosis of Diabetes Mellitus.Performed By: #### GLULS ####Point of Care testing,Arterial Blood Gason 15-23-4822VWU Base Excess4.8 mmol/LHigh-3.0-3.0The [facility] Physician GroupComment on above:Performed By: #### ABG ####Point of Care testing,ABG Frac Inspired O235 %NormalThe [facility] Physician GroupComment on above:Performed By: #### ABG ####Point of Care testing,ABG Oxygen Content7.6 mmol/LNormal6.6-9.7The [facility] Physician GroupComment on above:Performed By: #### ABG ####Point of Care testing,ABG Oxygen Qvlkorgrvq00.4 %Low95.0-100.0The [facility] Physician GroupComment on above:Performed By: #### ABG ####Point of Care testing,ABG SRO031.5 mm[Hg]High35.0-45.0[facility] Physician [facility] Comment on above:Performed By: #### ABG ####Point of Care testing,ABG PH7.41 Normal7.35-7.45The [facility] Physician GroupComment on above:Performed By: #### ABG ####Point of Care testing,ABG PO260.5 mm[Hg]Low80.0-100.0The [facility] Physician GroupComment on above:Performed By: #### ABG ####Point of Care testing,ABG Pressure Secxjoj05.0[facility] Physician GroupComment on above:Performed By: #### ABG ####Point of Care testing,CO2 [Moles/Vol]31.8 mmol/LHigh23.0-27.0The [facility] Physician GroupComment on above:Performed By: #### ABG ####Point of Care testing,CPAP5.0NoUNC [facility] Phys[facility] Comment on above:Performed By: #### ABG ####Point of Care testing,HCO3 (Bld) [Moles/Vol]30.3 mmol/LHigh23.0-29.0The [facility] Physician GroupComment on above:Performed By: #### ABG ####Point of Care testing,Respiratory Critical NormalOrlando Health [facility] Center Physician GroupComment on above:Result Comment: Critical Value called on: 08/07/2025 at 14:47PERFORMED BY:[place] [address] [address] [place], [place] [phone] MEDICAL DIRECTORCELESTE GERMAN M.D.Performed By: #### ABG ####Point of Care testing, VBG Draw SiteRight RadialMorton Plant Hospital Physician GroupComment on above: Performed By: #### ABG ####Point of Care testing,Ventilator ModeCPAPMorton Plant Hospital Physician GroupComment on above:Performed By: #### ABG ####Point of Care testing,ABG Base Excess6.2 mmol/LHigh-3.0-3.0[facility] Comment on above:Performed By: #### ABG ####Point of Care testing,ABG Frac Inspired O230 %NormalThe [facility] Physician GroupComment on above:Performed By: #### ABG ####Point of Care testing,ABG Oxygen Content7.1 mmol/LNormal6.6-9.7The [facility] Physician GroupComment on above:Performed By: #### ABG ####Point of Care testing,ABG Oxygen Cexytinrkq54.7 %Low95.0-100.0[facility] Physician GroupComment on above:Performed By: #### ABG ####Point of Care testing,ABG PCO2 42.6 mm[Hg]Osggjr89.0-45.0The [facility] Physician GroupComment on above: Performed By: #### ABG ####Point of Care testing,ABG SLUL2JbrgbkKbqMorton Plant Hospital Physician GroupComment on above:Performed By: #### ABG ####Point of Care testing,ABG PH7.42Epml1.35-7.45[facility] Physician GroupComment on above: Performed By: #### ABG ####Point of Care testing,ABG PO258.8 mm[Hg]Low80.0-100.0 The [facility] Physician GroupComment on above:Performed By: #### ABG ####Point of Care testing,ABG TV450 mLNormalThe [facility] Physician GroupComment on above: Performed By: #### ABG ####Point of Care testing,CO2 [Moles/Vol]31.8 mmol/LHigh 23.0-27.0The [facility] Physician GroupComment on above:Performed By: #### ABG ####Point of Care testing,HCO3 (Bld) [Moles/Vol]30.4 mmol/LHigh23.0-29.0The [facility] Physician GroupComment on above:Performed By: #### ABG ####Point of Care testing,Respiratory CriticalMorton Plant Hospital Physician GroupComment on above:Result Comment: Critical Value called on: 08/07/2025 at 05:39PERFORMED BY:[address] [place], [place] [phone] MEDICAL DIRECTORCELESTE GERMAN M.D.Performed By: #### ABG ####Point of Care testing,Set Respiratory Lksu43Szzw[address] [place] [address] Physician GroupComment on above:Performed By: #### ABG ####Point of Care testing,VBG Draw SiteLeft BrachialMorton Plant Hospital Physician GroupComment on above:Performed By: #### ABG ####Point of Care testing,Ventilator ModeACNormal The [facility] Physician GroupComment on above:Performed By: #### ABG ####Point of Care testing,Basic Metabolic Panelon 13-27-2016Wcchn gap [Moles/Vol]9.4 mmol/LNormal6.0-15.0The [facility] Physician GroupComment on above:Performed By: #### CBC, BMP ####[address] [address] USACalcium [Mass/Vol]8.3 mg/dLLow8.6-10.3[facility] Comment on above:Performed By: #### CBC, BMP ####[address] [address] USAChloride [Moles/Vol]105 mmol/LNormal 98-107The [facility] Physician GroupComment on above:Performed By: #### CBC, BMP ####[address] [address] USACO2 [Moles/Vol]33.9 mmol/LHigh21.0-31.0The [facility] Physician GroupComment on above:Performed By: #### CBC, BMP ####[place] [address] [place] [address] USACreatinine [Mass/Vol]1.08 mg/dLNormal0.70-1.30The [facility] Physician GroupComment on above:Performed By: #### CBC, BMP ####[address] [address] [place] Creatinine Clr Calc Lzpjleba48.59NormalThe [facility] Physician GroupComment on above:Result Comment: PERFORMED BY:[address] [place], [place] [phone] MEDICAL DIRECTORCELESTE GERMAN M.D.Performed By: #### CBC, BMP ####[address] [address] USAGFR/1.73 sq M.predicted MDRD (S/P/Bld) [Vol rate/Area]mL/min/{1.73_m2}NormalThe [facility] Physician GroupComment on above: Performed By: #### CBC, BMP ####[address] [address] USAGlucose [Mass/Vol]106 mg/bNQlcq23-858Omt [facility] Physician GroupComment on above:Result Comment: Random Glucose Reference Range is dependent on time and content of last meal. Glucose of more than 200 mg/dL in a nonstressed, ambulatory subject supports the diagnosis of Diabetes Mellitus. ADA recommended reference rangePerformed By: #### CBC, BMP ####[address] [address] USAPotassium [Moles/Vol] 4.3 mmol/LNormal3.5-5.1The [facility] Physician GroupComment on above:Performed By: #### CBC, BMP ####[address] [address] USASodium [Moles/Vol]144 mmol/JYkyqyc651-383Nvz [facility] Physician GroupComment on above:Performed By: #### CBC, BMP ####[address] [place] [address] USAUrea nitrogen [Mass/Vol]27 mg/dLHigh 7-25The [facility] Physician GroupComment on above:Performed By: #### CBC, BMP ####[place] [address] [facility] Complete Blood Count Auto Diffon 91-60-1925Omxqwxvrn (Bld) [#/Vol]0.0 10*3/uL Normal0.0-0.2The [facility] Physician GroupComment on above:Result Comment: PERFORMED BY:[address] [place], [place] [phone] MEDICAL DIRECTORCELESTE GERMAN M.D.Performed By: #### CBC, BMP ####[place] [address] USABasophils/100 WBC (Bld)0.7 %Normal.The [facility] Physician GroupComment on above:Performed By: #### CBC, BMP ####[place] [address] USAEosinophils (Bld) [#/Vol]0.1 10*3/uLNormal 0.0-0.45The [facility] Physician GroupComment on above:Performed By: #### CBC, BMP ####[place] [address] [place] Eosinophils/100 WBC (Bld)0.8 %Normal.The [facility] Physician GroupComment on above:Performed By: #### CBC, BMP ####[place] [address] [facility] HOSPITALErythrocyte distribution width (RBC) [Ratio]15.4 % High12.0-14.8The [facility] Physician GroupComment on above:Performed By: #### CBC, BMP ####[place] [address] USAHematocrit (Bld) [Volume fraction]38.0 %Low38.8-50.0The [facility] Physician GroupComment on above:Performed By: #### CBC, BMP ####[address] [address] USAHemoglobin (Bld) [Mass/Vol]12.2 g/dL Low13.0-17.0The [facility] Physician GroupComment on above:Performed By: #### CBC, BMP ####[address] [address] USALymphocytes (Bld) [#/Vol]0.9 10*3/uLLow1.00-4.8The [facility] Comment on above:Performed By: #### CBC, BMP ####[address] [address] USALymphocytes/100 WBC (Bld)13.0 %Normal. The [facility] Physician GroupComment on above:Performed By: #### CBC, BMP ####[address] [address] USAMCH (RBC) [Entitic mass]30.1 ppTpzbpf58.5-35.2The [facility] Physician GroupComment on above:Performed By: #### CBC, BMP ####[address] [address] USAMCV (RBC) [Entitic vol]93.5 kOAdeqgt38.5-101 The [facility] Physician GroupComment on above:Performed By: #### CBC, BMP ####[address] [address] USAMean Corpuscular HGB Conc32.2 g/dLLow32.5-35.6The [facility] Physician GroupComment on above:Performed By: #### CBC, BMP ####[address] [address] USAMonocytes (Bld) [#/Vol]0.5 10*3/uLNormal0.0-0.8The [facility] Physician GroupComment on above:Performed By: #### CBC, BMP ####[address] [address] [place] Monocytes/100 WBC (Bld)8.1 %Normal.The [facility] Physician GroupComment on above:Performed By: #### CBC, BMP ####[address] [address] USANeutrophils (Bld) [#/Vol]5.2 10*3/uLNormal1.8-7.7The [facility] Physician GroupComment on above:Performed By: #### CBC, BMP ####[place] [address] [place] Neutrophils/100 WBC (Bld)77.4 %Normal.The [facility] Physician GroupComment on above:Performed By: #### CBC, BMP ####[address] [address] USANRBC%0.1 /100{WBC}Normal0-0.5The [facility] Physician GroupComment on above:Performed By: #### CBC, BMP ####[place] [address] USAPlatelet mean volume (Bld) [Entitic vol]7.9 fLNormal6.6-10.1The [facility] Physician GroupComment on above: Performed By: #### CBC, BMP ####[address] [address] USAPlatelets (Bld) [#/Vol]208 10*3/vCScgmfk006-566Lfj [facility] Physician GroupComment on above:Performed By: #### CBC, BMP ####[address] [address] USARBC (Bld) [#/Vol]4.07 10*6/uLNormal3.90-5.60The [facility] Physician GroupComment on above:Performed By: #### CBC, BMP ####[address] [address] USAWBC (Bld) [#/Vol]6.7 10*3/uLNormal4.1-10.5The [facility] Physician GroupComment on above:Performed By: #### CBC, BMP ####[place] [address] USAWhite Blood Count6.7 [CFU]/mLNormal4.1-10.5The [facility] Physician [facility] HospitalComment on above:Performed By: #### CBC, BMP ####[address] [address] USAGlucose Poct Glucometerson 34-22-7949Jrifaam [Mass/Vol]104 mg/dLNoUNC Health [facility] Physician [facility] HospitalComment on above:Result Comment: Random Glucose Reference Range is dependent on time and content of last meal. Glucose of more than 200 mg/dL in a nonstressed, ambulatory subject supports the diagnosis of Diabetes Mellitus.PERFORMED BY:[address]ASHISHSHAR, [place] [phone] MEDICAL ELÍAS GERMAN M.D.Performed By: #### GLULS ####Point of Care testing, Glucose [Mass/Vol]99 mg/dLNoUniversity Hospitals Cleveland Medical CenterComment on above: Result Comment: Random Glucose Reference Range is dependent on time and content of last meal. Glucose of more than 200 mg/dL in a nonstressed, ambulatory subject supports the diagnosis of Diabetes Mellitus.PERFORMED BY:[address], [place] [phone] MEDICAL ELÍAS GERMAN M.D.Performed By: #### GLULS ####Point of Care testing,Glucose [Mass/Vol]105 mg/dLNoUNC Health [facility] Physician [facility] HospitalComment on above:Result Comment: Random Glucose Reference Range is dependent on time and content of last meal. Glucose of more than 200 mg/dL in a nonstressed, ambulatory subject supports the diagnosis of Diabetes Mellitus.PERFORMED BY:[address]ScarlettSHAR, [place] [phone] MEDICAL ELÍAS GERMAN M.D.Performed By: #### GLULS ####Point of Care testing,XR chest 1V portableon 84-26-7465YW chest 1V portableNoUNC Health [facility] Physician [facility] HospitalArterial Blood Gason 58-63-9034LEX Base Excess9.2 mmol/LHigh-3.0-3.0The [facility] Physician GroupComment on above: Performed By: #### ABG ####Point of Care testing,ABG Frac Inspired O245 %Normal The [facility] Physician GroupComment on above:Performed By: #### ABG ####Point of Care testing,ABG Oxygen Content7.2 mmol/LNormal6.6-9.7The [facility] Physician GroupComment on above:Performed By: #### ABG ####Point of Care testing,ABG Oxygen Vnlnxqdkty21.3 %Low95.0-100.0The [facility] Physician GroupComment on above:Performed By: #### ABG ####Point of Care testing,ABG AYS771.4 mm[Hg]High 35.0-45.0The [facility] Physician GroupComment on above:Performed By: #### ABG ####Point of Care testing,ABG UQBB0IbiuhmUeeAdventHealth North Pinellas Physician GroupComment on above:Performed By: #### ABG ####Point of Care testing,ABG PH7.18Ifcr9.35-7.45 [facility] Physician GroupComment on above:Performed By: #### ABG ####Point of Care testing,ABG PO257.6 mm[Hg]Low80.0-100.0The [facility] Comment on above:Performed By: #### ABG ####Point of Care testing,ABG TV400 mL NormalThe [facility] Physician GroupComment on above:Performed By: #### ABG ####Point of Care testing,CO2 [Moles/Vol]35.7 mmol/LHigh23.0-27.0The [facility] Physician GroupComment on above:Performed By: #### ABG ####Point of Care testing,HCO3 (Bld) [Moles/Vol]34.2 mmol/LHigh23.0-29.0The [facility] Physician GroupComment on above:Performed By: #### ABG ####Point of Care testing, Respiratory CriticalNormAdventHealth North Pinellas Physician GroupComment on above:Result Comment: Critical Value called on: 08/06/2025 at 04:09PERFORMED BY:[address] [place], [place] [phone] MEDICAL DIRECTORCELESTE GERMAN M.D.Performed By: #### ABG ####Point of Care testing,Set Respiratory Cdqa17KhekzlBuv[address] [place] [address] Physician GroupComment on above:Performed By: #### ABG ####Point of Care testing,VBG Draw SiteRight BrachialMorton Plant Hospital Physician GroupComment on above:Performed By: #### ABG ####Point of Care testing,Ventilator ModeACMorton Plant Hospital Physician GroupComment on above:Performed By: #### ABG ####Point of Care testing,Basic Metabolic Panelon 45-33-7393Datmd gap [Moles/Vol]8.9 mmol/LNormal6.0-15.0The [facility] Physician GroupComment on above:Performed By: #### BMP, TRIG, MG, CBC ####[place] [address] USACalcium [Mass/Vol]8.6 mg/dLNormal8.6-10.3The [facility] Physician GroupComment on above: Performed By: #### BMP, TRIG, MG, CBC ####[place] [address] USAChloride [Moles/Vol]109 mmol/ZSeho36-800Fct [facility] Physician GroupComment on above:Performed By: #### BMP, TRIG, MG, CBC ####[place] [address] USACO2 [Moles/Vol]33.1 mmol/LHigh21.0-31.0The [facility] Physician GroupComment on above:Performed By: #### BMP, TRIG, MG, CBC ####[place] [address] USACreatinine [Mass/Vol]1.07 mg/dLNormal 0.70-1.30The [facility] Physician GroupComment on above:Performed By: #### BMP, TRIG, MG, CBC ####[place] [address] USACreatinine Clr Calc Fmdiptfp73.60NormalThe [facility] Comment on above:Performed By: #### BMP, TRIG, MG, CBC ####[place] [address] USAGFR/1.73 sq M.predicted MDRD (S/P/Bld) [Vol rate/Area]mL/min/{1.73_m2}NormalThe [facility] Comment on above:Performed By: #### BMP, TRIG, MG, CBC ####[place] [address] USAGlucose [Mass/Vol]101 mg/dL Uqtf72-480Lmf [facility] Physician [facility] HospitalComment on above:Result Comment: Random Glucose Reference Range is dependent on time and content of last meal. Glucose of more than 200 mg/dL in a nonstressed, ambulatory subject supports the diagnosis of Diabetes Mellitus. ADA recommended reference rangePerformed By: #### BMP, TRIG, MG, CBC ####[place] [address] USAPotassium [Moles/Vol]4.0 mmol/LNormal3.5-5.1The [facility] Physician [facility] HospitalComment on above:Performed By: #### BMP, TRIG, MG, CBC ####[place] [address] USASodium [Moles/Vol]147 mmol/GOaja432-324Mxv [facility] Physician [facility] HospitalComment on above: Performed By: #### BMP, TRIG, MG, CBC ####[place] [id number] USAUrea nitrogen [Mass/Vol]23 mg/dLNormal7-25The [facility] Physician GroupComment on above:Performed By: #### BMP, TRIG, MG, CBC ####[address] Complete Blood Count Auto Diffon 67-60-2235Txmufpdyr (Bld) [#/Vol]0.0 10*3/uL Normal0.0-0.2The [facility] Physician GroupComment on above:Result Comment: PERFORMED BY:[address] [place], [place] [phone] MEDICAL DIRECTORCELESTE GERMAN M.D.Performed By: #### BMP, TRIG, MG, CBC ####[place] [id number] USABasophils/100 WBC (Bld)0.2 %Normal.The [facility] Physician GroupComment on above:Performed By: #### BMP, TRIG, MG, CBC ####[place] [address] [place] Eosinophils (Bld) [#/Vol]0.1 10*3/uLNormal0.0-0.45The [facility] Comment on above:Performed By: #### BMP, TRIG, MG, CBC ####[place] [address] USAEosinophils/100 WBC (Bld)1.2 % Normal.The [facility] Physician GroupComment on above:Performed By: #### BMP, TRIG, MG, CBC ####[place] [address] USAErythrocyte distribution width (RBC) [Ratio]15.8 %High12.0-14.8The [facility] Physician GroupComment on above:Performed By: #### BMP, TRIG, MG, CBC ####[place] [id number] [place] Hematocrit (Bld) [Volume fraction]36.4 %Low38.8-50.0The [facility] Physician GroupComment on above:Performed By: #### BMP, TRIG, MG, CBC ####[place] [address] USAHemoglobin (Bld) [Mass/Vol]12.1 g/dLLow13.0-17.0The [facility] Physician GroupComment on above: Performed By: #### BMP, TRIG, MG, CBC ####[place] [address] USALymphocytes (Bld) [#/Vol]0.6 10*3/uLLow 1.00-4.8The [facility] Physician GroupComment on above:Performed By: #### BMP, TRIG, MG, CBC ####[place] [phone] USALymphocytes/100 WBC (Bld)10.3 %Normal.The [facility] Comment on above:Performed By: #### BMP, TRIG, MG, CBC ####[place] [phone] [facility] [place] [Entitic mass]30.5 vdLanrvp14.5-35.2The [facility] Physician GroupComment on above:Performed By: #### BMP, TRIG, MG, CBC ####[address] (RBC) [Entitic vol]92.1 gYJzxkkb94.5-101The [facility] Physician GroupComment on above:Performed By: #### BMP, TRIG, MG, CBC ####[place] [address] USAMean Corpuscular HGB Conc33.1 g/jZZksgtj01.5-35.6The [facility] Physician GroupComment on above:Performed By: #### BMP, TRIG, MG, CBC ####[place] [address] USAMonocytes (Bld) [#/Vol]0.4 10*3/uL Normal0.0-0.8The [facility] Physician GroupComment on above:Performed By: #### BMP, TRIG, MG, CBC ####[place] [address] USAMonocytes/100 WBC (Bld)7.1 %Normal.The [facility] Comment on above:Performed By: #### BMP, TRIG, MG, CBC ####[place] [address] USANeutrophils (Bld) [#/Vol]4.9 10*3/uLNormal1.8-7.7The [facility] Physician GroupComment on above:Performed By: #### BMP, TRIG, MG, CBC ####[place] [address] USANeutrophils/100 WBC (Bld)81.2 %Normal.The [facility] Physician GroupComment on above:Performed By: #### BMP, TRIG, MG, CBC ####[place] [address] USANRBC% 0.0 /100{WBC}Normal0-0.5The [facility] Physician GroupComment on above:Performed By: #### BMP, TRIG, MG, CBC ####[place] [address] USAPlatelet mean volume (Bld) [Entitic vol]7.5 fLNormal 6.6-10.1The [facility] Physician GroupComment on above:Performed By: #### BMP, TRIG, MG, CBC ####[place] [address] USAPlatelets (Bld) [#/Vol]208 10*3/xFKhoxif780-466Vbl [facility] Physician GroupComment on above:Performed By: #### BMP, TRIG, MG, CBC ####[place] [address] USARBC (Bld) [#/Vol]3.95 10*6/uLNormal3.90-5.60The [facility] Physician GroupComment on above:Performed By: #### BMP, TRIG, MG, CBC ####[place] [address] USAWBC (Bld) [#/Vol]6.0 10*3/uLNormal4.1-10.5The [facility] Physician GroupComment on above:Performed By: #### BMP, TRIG, MG, CBC ####[place] [address] USAWhite Blood Count6.0 [CFU]/mLNormal4.1-10.5The [facility] Physician GroupComment on above:Performed By: #### BMP, TRIG, MG, CBC ####[place] [address] [place] [address] USAGlucose Poct Glucometerson 08-06-2025 Glucose [Mass/Vol]147 mg/dLNoUNC Health [facility] Ridge - Valdese Physician GroupComment on above: Result Comment: Random Glucose Reference Range is dependent on time and content of last meal. Glucose of more than 200 mg/dL in a nonstressed, ambulatory subject supports the diagnosis of Diabetes Mellitus.PERFORMED BY:[address] CANDELARIOJeremiSHAR, [place] [phone] MEDICAL ELÍAS GERMAN M.D.Performed By: #### GLULS ####Point of Care testing,Glucose [Mass/Vol]120 mg/dLNoUNC Health [facility] - Valdese Physician GroupComment on above:Result Comment: Random Glucose Reference Range is dependent on time and content of last meal. Glucose of more than 200 mg/dL in a nonstressed, ambulatory subject supports the diagnosis of Diabetes Mellitus.PERFORMED BY:[address] [place], [place] [phone] MEDICAL ELÍAS GERMAN M.D.Performed By: #### GLULS ####Point of Care testing,Glucose [Mass/Vol]117 mg/dLNoUNC Health [facility] Ridge - Val[facility]e Physician GroupComment on above:Result Comment: Random Glucose Reference Range is dependent on time and content of last meal. Glucose of more than 200 mg/dL in a nonstressed, ambulatory subject supports the diagnosis of Diabetes Mellitus.PERFORMED BY:[address] [place]REEJeremiSH[place], [place] [phone] MEDICAL ELÍAS GERMAN M.D.Performed By: #### GLULS ####Point of Care testing,Magnesiumon 08-06-2025 Magnesium [Mass/Vol]1.9 mg/dLNormal1.9-2.7The [facility] Physician GroupComment on above:Result Comment: PERFORMED BY:[address] [place], [place] [phone] MEDICAL ELÍAS GERMAN M.D.Performed By: #### BMP, TRIG, MG, CBC ####[facility] [address] [place] [address] USATriglycerideson 08-06-2025 Triglyceride [Mass/Vol]70 mg/bKMqovrq52-195Egu [facility] Physician GroupComment on above:Result Comment: TRIG ATP III CLASSIFICATION TRIG less than 150 mg/dL Normal TRIG 150-199 mg/dL Borderline high TRIG 200-500 mg/dL High TRIG greater than 500 mg/dL Very high Standard traceable to the Center for Disease Conrtrol and Prevention (CDC) test method.PERFORMED BY:[facility] [place], [place] [phone] MEDICAL DIRECTORCELESTE GERMAN M.D.Performed By: #### BMP, TRIG, MG, CBC ####[place] [address] [place] [address] USAXR chest 1V portable on 34-78-3826IT chest 1V portableNormalThe [facility] Physician [facility] HospitalArterial Blood Gason 23-02-0730EGM Base Excess8.4 mmol/LHigh-3.0-3.0The [facility] Physician GroupComment on above:Performed By: #### ABG ####Point of Care testing,ABG Frac Inspired O255 %NormalThe [facility] Physician GroupComment on above:Performed By: #### ABG ####Point of Care testing,ABG Oxygen Content7.3 mmol/LNormal6.6-9.7The [facility] Physician GroupComment on above:Performed By: #### ABG ####Point of Care testing,ABG Oxygen Skokgieqwx67.3 %Kxzcyy57.0-100.0 The [facility] Physician GroupComment on above:Performed By: #### ABG ####Point of Care testing,ABG ZWN319.7 mm[Hg]High35.0-45.0The [facility] Comment on above:Performed By: #### ABG ####Point of Care testing,ABG PEEP5 NormalThe [facility] Physician GroupComment on above:Performed By: #### ABG ####Point of Care testing,ABG PH7.27Omfa0.35-7.45The [facility] Comment on above:Performed By: #### ABG ####Point of Care testing,ABG PO274.4 mm[Hg]Low80.0-100.0The [facility] Physician GroupComment on above:Performed By: #### ABG ####Point of Care testing,ABG TV500 mLNormalThe [facility] Physician GroupComment on above:Performed By: #### ABG ####Point of Care testing,CO2 [Moles/Vol]34.4 mmol/LHigh23.0-27.0The [facility] Physician GroupComment on above:Performed By: #### ABG ####Point of Care testing,HCO3 (Bld) [Moles/Vol] 33.0 mmol/LHigh23.0-29.0The [facility] Physician GroupComment on above:Performed By: #### ABG ####Point of Care testing,Respiratory CriticalNoUNC Health [facility] - Val[facility]e Physician GroupComment on above:Result Comment: Critical Value called on: 08/05/2025 at 04:04PERFORMED BY:[facility] [place], [place] [phone] MEDICAL DIRECTORCELESTE GERMAN M.D.Performed By: #### ABG ####Point of Care testing,Set Respiratory Rate12 NormalThe [facility] Physician GroupComment on above:Performed By: #### ABG ####Point of Care testing,VBG Draw SiteRight BrachialNoUNC Health [facility] - Valdese Physician GroupComment on above:Performed By: #### ABG ####Point of Care testing,Ventilator ModeACNoUNC Health Blue Ridge - Valdese Physician GroupComment on above: Performed By: #### ABG ####Point of Care testing,Basic Metabolic Panelon 03-90-4341Vgind gap [Moles/Vol]8.6 mmol/LNormal6.0-15.0The [facility] Physician GroupComment on above:Performed By: #### BMP, CBC ####[facility] [place] [address] USACalcium [Mass/Vol]8.4 mg/dLLow 8.6-10.3The [facility] Physician GroupComment on above:Performed By: #### BMP, CBC ####[address] [address] [place] Chloride [Moles/Vol]107 mmol/UIreiqq93-080Lls [facility] Physician GroupComment on above:Performed By: #### BMP, CBC ####[address] [address] USACO2 [Moles/Vol]31.8 mmol/LHigh21.0-31.0The [facility] Physician GroupComment on above:Performed By: #### BMP, CBC ####[address] [address] [place] Creatinine [Mass/Vol]1.06 mg/dLNormal0.70-1.30The [facility] Comment on above:Performed By: #### BMP, CBC ####[place] [id number] USACreatinine Clr Calc Jenywrnq15.06 NormalThe [facility] Physician GroupComment on above:Result Comment: PERFORMED BY:[address] [place], [place] [phone] MEDICAL DIRECTORCELESTE GERMAN M.D.Performed By: #### BMP, CBC ####[address] [address] [place] GFR/1.73 sq M.predicted MDRD (S/P/Bld) [Vol rate/Area]mL/min/{1.73_m2}NormalThe [facility] Physician GroupComment on above:Performed By: #### BMP, CBC ####[address] [address] USAGlucose [Mass/Vol]131 mg/lPAqcz49-624Rma [facility] Physician GroupComment on above: Result Comment: Random Glucose Reference Range is dependent on time and content of last meal. Glucose of more than 200 mg/dL in a nonstressed, ambulatory subject supports the diagnosis of Diabetes Mellitus. ADA recommended reference rangePerformed By: #### BMP, CBC ####[address] [place] [address] USAPotassium [Moles/Vol]3.4 mmol/LLow3.5-5.1The [facility] Physician GroupComment on above:Performed By: #### BMP, CBC ####[place] [address] USASodium [Moles/Vol]144 mmol/QTwozbt929-220Fwg [facility] Physician GroupComment on above: Performed By: #### BMP, CBC ####[place] [address] USAUrea nitrogen [Mass/Vol]27 mg/dLHigh7-25The [facility] Physician GroupComment on above:Performed By: #### BMP, CBC ####[address] Complete Blood Count Auto Diffon 62-09-7499Sxdduggij (Bld) [#/Vol]0.0 10*3/uL Normal0.0-0.2The [facility] Physician [facility] HospitalComment on above:Result Comment: PERFORMED BY:[address] [place], [place] [phone] MEDICAL DIRECTORCELESTE GERMAN M.D.Performed By: #### BMP, CBC ####[place] [address] USABasophils/100 WBC (Bld)0.5 %Normal.The [facility] Physician GroupComment on above:Performed By: #### BMP, CBC ####[place] [address] USAEosinophils (Bld) [#/Vol]0.1 10*3/uLNormal 0.0-0.45The [facility] Physician [facility] HospitalComment on above:Performed By: #### BMP, CBC ####[place] [address] [place] Eosinophils/100 WBC (Bld)1.8 %Normal.The [facility] Physician GroupComment on above:Performed By: #### BMP, CBC ####[facility] [address] [place] [address] USAErythrocyte distribution width (RBC) [Ratio]15.4 % High12.0-14.8The [facility] Physician GroupComment on above:Performed By: #### BMP, CBC ####[place] [address] USAHematocrit (Bld) [Volume fraction]34.2 %Low38.8-50.0The [facility] Physician GroupComment on above:Performed By: #### BMP, CBC ####[place] [address] USAHemoglobin (Bld) [Mass/Vol]11.3 g/dL Low13.0-17.0The [facility] Physician GroupComment on above:Performed By: #### BMP, CBC ####[place] [address] USALymphocytes (Bld) [#/Vol]0.5 10*3/uLLow1.00-4.8The [facility] Comment on above:Performed By: #### BMP, CBC ####[place] [address] USALymphocytes/100 WBC (Bld)11.2 %Normal. The [facility] Physician GroupComment on above:Performed By: #### BMP, CBC ####[place] [address] USAMCH (RBC) [Entitic mass]30.5 dfFsyzcx23.5-35.2The [facility] Physician GroupComment on above:Performed By: #### BMP, CBC ####[place] [address] USAMCV (RBC) [Entitic vol]92.6 uGWxmjdl80.5-101 The [facility] Physician GroupComment on above:Performed By: #### BMP, CBC ####[place] [address] USAMean Corpuscular HGB Conc32.9 g/gDBeipdr20.5-35.6The [facility] Physician GroupComment on above:Performed By: #### BMP, CBC ####[address] [address] USAMonocytes (Bld) [#/Vol]0.5 10*3/uLNormal 0.0-0.8The [facility] Physician GroupComment on above:Performed By: #### BMP, CBC ####[place] [address] [place] Monocytes/100 WBC (Bld)9.7 %Normal.The [facility] Physician GroupComment on above:Performed By: #### BMP, CBC ####[place] [address] USANeutrophils (Bld) [#/Vol]3.6 10*3/uLNormal1.8-7.7The [facility] Physician GroupComment on above:Performed By: #### BMP, CBC ####[place] [address] [place] Neutrophils/100 WBC (Bld)76.8 %Normal.The [facility] Physician GroupComment on above:Performed By: #### BMP, CBC ####[address] [address] USANRBC%0.2 /100{WBC}Normal0-0.5The [facility] Physician GroupComment on above:Performed By: #### BMP, CBC ####[place] [id number] USAPlatelet mean volume (Bld) [Entitic vol]7.3 fLNormal6.6-10.1The [facility] Physician GroupComment on above: Performed By: #### BMP, CBC ####[address] [address] USAPlatelets (Bld) [#/Vol]191 10*3/oDLnijcw513-704Lmx [facility] Physician GroupComment on above:Performed By: #### BMP, CBC ####[place] [address] USARBC (Bld) [#/Vol]3.69 10*6/uLLow3.90-5.60The [facility] Physician GroupComment on above:Performed By: #### BMP, CBC ####[address] [address] USAWBC (Bld) [#/Vol]4.7 10*3/uLNormal4.1-10.5The [facility] Physician GroupComment on above:Performed By: #### BMP, CBC ####[address] [address] USAWhite Blood Count4.7 [CFU]/mLNormal4.1-10.5The [facility] Physician GroupComment on above:Performed By: #### BMP, CBC ####[address] [address] USAGlucose Poct Glucometerson 25-00-3031Amdbmwa [Mass/Vol]139 mg/dLNoUNC Health [facility] Physician [facility] HospitalComment on above:Result Comment: Random Glucose Reference Range is dependent on time and content of last meal. Glucose of more than 200 mg/dL in a nonstressed, ambulatory subject supports the diagnosis of Diabetes Mellitus.PERFORMED BY:[address] [place], [place] [phone] MEDICAL ELÍAS GERMAN M.D.Performed By: #### GLULS ####Point of Care testing, Glucose [Mass/Vol]85 mg/dLNoUNC Health [facility] Physician GroupComment on above: Result Comment: Random Glucose Reference Range is dependent on time and content of last meal. Glucose of more than 200 mg/dL in a nonstressed, ambulatory subject supports the diagnosis of Diabetes Mellitus.PERFORMED BY:[address] [place], [place] [phone] MEDICAL ELÍAS GERMAN M.D.Performed By: #### GLULS ####Point of Care testing,Glucose [Mass/Vol]127 mg/dLNoUNC Health [facility] Physician GroupComment on above:Result Comment: Random Glucose Reference Range is dependent on time and content of last meal. Glucose of more than 200 mg/dL in a nonstressed, ambulatory subject supports the diagnosis of Diabetes Mellitus.PERFORMED BY:[place] [address] [address] [place], [place] [phone] MEDICAL ELÍAS GERMAN M.D.Performed By: #### GLULS ####Point of Care testing,Glucose [Mass/Vol]168 mg/dLMorton Plant Hospital Physician [facility] HospitalComment on above:Result Comment: Random Glucose Reference Range is dependent on time and content of last meal. Glucose of more than 200 mg/dL in a nonstressed, ambulatory subject supports the diagnosis of Diabetes Mellitus.PERFORMED BY:[address] [address] [place], [place] [phone] MEDICAL ELÍAS GERMAN M.D.Performed By: #### GLULS ####Point of Care testing,XR chest 1V portableon 37-96-1323LZ chest 1V portableNoUNC Health [facility] Physician [facility] HospitalAerobic Culture on 84-83-4139Kiomdss CultureNoUNC [facility] Physician [facility] HospitalComment on above: Performed By: #### GS, AERC ####[address] [address] USAAnti-Xa UF Heparinon 64-27-8337Wroa-Xa UF Heparin 0.11Fprlkb1.30-0.70The [facility] Physician [facility] HospitalComment on above:Result Comment: Use the aPTT protocol when triglycerides are > 800 mg/dL, total bilirubin is > 20 mg/dL and/or patient has received a DOAC, Fondaparinux or LMWH within 72 hours AND baseline anti-Xa level is > 0.7 units/mLPERFORMED BY:[address] [place]DELARIOJeremiSHAR, [place] [phone] MEDICAL ELÍAS GERMAN M.D.Performed By: #### UFHEP ####[address] [address] USAArterial Blood Gason 66-27-3479GBN Base Excess3.2 mmol/LHigh-3.0-3.0The [facility] Comment on above:Performed By: #### ABG ####Point of Care testing,ABG Frac Inspired O265 %NormalThe [facility] Physician GroupComment on above:Performed By: #### ABG ####Point of Care testing,ABG Oxygen Content6.9 mmol/LNormal6.6-9.7The [facility] Physician GroupComment on above:Performed By: #### ABG ####Point of Care testing,ABG Oxygen Poqepdyqsr29.4 %Low95.0-100.0The [facility] Physician GroupComment on above:Performed By: #### ABG ####Point of Care testing,ABG PCO2 45.5 mm[Hg]High35.0-45.0The [facility] Physician GroupComment on above:Performed By: #### ABG ####Point of Care testing,ABG DJFA1LljnheHcj [facility] Physician GroupComment on above:Performed By: #### ABG ####Point of Care testing,ABG PH 7.34Ukpzgr5.35-7.45The [facility] Physician GroupComment on above:Performed By: #### ABG ####Point of Care testing,ABG PO270.1 mm[Hg]Low80.0-100.0The [facility] Physician GroupComment on above:Performed By: #### ABG ####Point of Care testing,ABG TV500 mLNormalThe [facility] Physician GroupComment on above: Performed By: #### ABG ####Point of Care testing,CO2 [Moles/Vol]29.7 mmol/LHigh 23.0-27.0The [facility] Physician GroupComment on above:Performed By: #### ABG ####Point of Care testing,HCO3 (Bld) [Moles/Vol]28.3 mmol/ZNneqlo03.0-29.0The [facility] Physician GroupComment on above:Performed By: #### ABG ####Point of Care testing,Respiratory CriticalNormAdventHealth North Pinellas Physician GroupComment on above:Result Comment: Critical Value called on: 2025 at 06:09PERFORMED BY:[address] [address] [place], [place] [phone] MEDICAL DIRECTORCELESTE GERMAN M.D.Performed By: #### ABG ####Point of Care testing,Set Respiratory Iaks86KdegrlHnwMorton Plant Hospital Physician GroupComment on above:Performed By: #### ABG ####Point of Care testing,VBG Draw SiteRight RadialMorton Plant Hospital Physician GroupComment on above:Performed By: #### ABG ####Point of Care testing,Ventilator ModeACNormal The [facility] Physician GroupComment on above:Performed By: #### ABG ####Point of Care testing,Basic Metabolic Panelon 56-97-6580Vmfep gap [Moles/Vol]10.5 mmol/LNormal6.0-15.0The [facility] Physician GroupComment on above:Performed By: #### BMP, CBC ####[address] [address] USACalcium [Mass/Vol]8.5 mg/dLLow8.6-10.3The [facility] Comment on above:Performed By: #### BMP, CBC ####[address] [address] USAChloride [Moles/Vol]107 mmol/LNormal 98-107The [facility] Physician GroupComment on above:Performed By: #### BMP, CBC ####[address] [address] USACO2 [Moles/Vol]27.9 mmol/FWmaysj09.0-31.0The [facility] Physician GroupComment on above:Performed By: #### BMP, CBC ####[address] [address] USACreatinine [Mass/Vol]1.11 mg/dLNormal0.70-1.30The [facility] Physician GroupComment on above:Performed By: #### BMP, CBC ####[address] [address] [place] Creatinine Clr Calc Fcxyvdgx15.60NormCleveland Clinic Mercy Hospitale [facility] Physician GroupComment on above:Result Comment: PERFORMED BY:[address] [address] [place], [place] [phone] MEDICAL DIRECTORCELESTE GERMAN M.D.Performed By: #### LISA, CBC ####[address] [address] USAGFR/1.73 sq M.predicted MDRD (S/P/Bld) [Vol rate/Area]mL/min/{1.73_m2}NormalThe [facility] Physician GroupComment on above: Performed By: #### LISA, CBC ####[address] [address] USAGlucose [Mass/Vol]88 mg/yYAqcjzf56-295Wkh [facility] Physician GroupComment on above:Result Comment: Random Glucose Reference Range is dependent on time and content of last meal. Glucose of more than 200 mg/dL in a nonstressed, ambulatory subject supports the diagnosis of Diabetes Mellitus. ADA recommended reference rangePerformed By: #### LISA, CBC ####[address] [address] USAPotassium [Moles/Vol] 3.4 mmol/LLow3.5-5.1The [facility] Physician GroupComment on above:Performed By: #### LISA, CBC ####[place] [address] USASodium [Moles/Vol]142 mmol/KEmkfki544-446Vnw [facility] Comment on above:Performed By: #### LISA, CBC ####[address] [address] USAUrea nitrogen [Mass/Vol]34 mg/dLHigh 7-25The [facility] Physician GroupComment on above:Performed By: #### LISA, CBC ####[place] [address] LOVELACE [facility] Complete Blood Count Auto Diffon [id number] (Bld) [#/Vol]0.0 10*3/uL Normal0.0-0.2The [facility] Physician GroupComment on above:Result Comment: PERFORMED BY:[address] [phone] MEDICAL DIRECTORCELESTE GERMAN M.D.Performed By: #### BMP, CBC ####[place] [id number] USABasophils/100 WBC (Bld)0.3 %Normal.The [facility] Physician GroupComment on above:Performed By: #### BMP, CBC ####[place] [address] USAEosinophils (Bld) [#/Vol]0.0 10*3/uLNormal 0.0-0.45The [facility] Physician GroupComment on above:Performed By: #### BMP, CBC ####[place] [address] [place] Eosinophils/100 WBC (Bld)0.6 %Normal.The [facility] Physician GroupComment on above:Performed By: #### BMP, CBC ####[place] [address] USAErythrocyte distribution width (RBC) [Ratio]15.8 % High12.0-14.8The [facility] Physician GroupComment on above:Performed By: #### BMP, CBC ####[place] [address] USAHematocrit (Bld) [Volume fraction]35.2 %Low38.8-50.0The [facility] Physician GroupComment on above:Performed By: #### BMP, CBC ####[place] [id number] USAHemoglobin (Bld) [Mass/Vol]11.6 g/dL Low13.0-17.0The [facility] Physician GroupComment on above:Performed By: #### BMP, CBC ####[place] [address] USALymphocytes (Bld) [#/Vol]0.4 10*3/uLLow1.00-4.8The [facility] Comment on above:Performed By: #### BMP, CBC ####[address] [address] USALymphocytes/100 WBC (Bld)9.6 %Normal. The [facility] Physician GroupComment on above:Performed By: #### BMP, CBC ####[address] (RBC) [Entitic mass]30.5 viKrjrmy24.5-35.2The [facility] Physician GroupComment on above:Performed By: #### BMP, CBC ####[address]V (RBC) [Entitic vol]92.2 lONvvhjc80.5-101 The [facility] Physician GroupComment on above:Performed By: #### BMP, CBC ####[place] [address] USAMean Corpuscular HGB Conc33.0 g/lOOmbbuj84.5-35.6The [facility] Physician GroupComment on above:Performed By: #### BMP, CBC ####[place] [address] USAMonocytes (Bld) [#/Vol]0.5 10*3/uLNormal 0.0-0.8The [facility] Physician GroupComment on above:Performed By: #### BMP, CBC ####[place] [address] [place] Monocytes/100 WBC (Bld)11.2 %Normal.The [facility] Physician GroupComment on above:Performed By: #### BMP, CBC ####[place] [address] USANeutrophils (Bld) [#/Vol]3.4 10*3/uLNormal1.8-7.7The [facility] Physician GroupComment on above:Performed By: #### BMP, CBC ####[place] [address] [place] Neutrophils/100 WBC (Bld)78.3 %Normal.The [facility] Physician GroupComment on above:Performed By: #### BMP, CBC ####[address] [address] USANRBC%0.1 /100{WBC}Normal0-0.5The [facility] Physician GroupComment on above:Performed By: #### BMP, CBC ####[address] [address] USAPlatelet mean volume (Bld) [Entitic vol]7.2 fLNormal6.6-10.1The [facility] Physician GroupComment on above: Performed By: #### BMP, CBC ####[address] [address] USAPlatelets (Bld) [#/Vol]181 10*3/oJXbusfr637-987Vag [facility] Physician GroupComment on above:Performed By: #### BMP, CBC ####[address] [address] USARBC (Bld) [#/Vol]3.82 10*6/uLLow3.90-5.60The [facility] Physician GroupComment on above:Performed By: #### BMP, CBC ####[address] [address] USAWBC (Bld) [#/Vol]4.3 10*3/uLNormal4.1-10.5The [facility] Physician GroupComment on above:Performed By: #### BMP, CBC ####[address] [address] USAWhite Blood Count4.3 [CFU]/mLNormal4.1-10.5The [facility] Physician GroupComment on above:Performed By: #### BMP, CBC ####[address] [address] USAECG 12 lead ECGon 62-99-0576HZA 12 lead ECGMorton Plant Hospital Physician [facility] River County HospitalGlucose Poct Glucometerson 01-98-1639Rnjufrp9Oaf4: Cleaned MeterNoUNC Health [facility] Ridge - Valdese Physician GroupComment on above:Result Comment: PERFORMED BY:[address] [place], [place] [phone] MEDICAL DIRECTORCELESTE GERMAN M.D.Performed By: #### GLULS ####Point of Care testing,Glucose [Mass/Vol]126 mg/dLMorton Plant Hospital Physician GroupComment on above:Result Comment: Random Glucose Reference Range is dependent on time and content of last meal. Glucose of more than 200 mg/dL in a nonstressed, ambulatory subject supports the diagnosis of Diabetes Mellitus.Performed By: #### GLULS ####Point of Care testing,Commemt1 Glu2: Cleaned MeterNoUNC Health [facility] Ridge - Valdese Physician GroupComment on above:Result Comment: PERFORMED BY:[facility] AVScarlettJeremiSHAR, [place] [phone] MEDICAL DIRECTORCELESTE GERMAN M.D.Performed By: #### GLULS ####Point of Care testing,Glucose [Mass/Vol]111 mg/dLNoUNC Health Blue Ridge - Valdese Physician GroupComment on above:Result Comment: Random Glucose Reference Range is dependent on time and content of last meal. Glucose of more than 200 mg/dL in a nonstressed, ambulatory subject supports the diagnosis of Diabetes Mellitus.Performed By: #### GLULS ####Point of Care testing,Gram Stain on 70-29-7212Vzacbaujdkr observation Gram stain Nom (Unsp spec)Gram Stain Result 3+ White Blood Cells 1+ Epithelial Cells 1+ Gram Positive Cocci PERFORMED BY: [facility] [address] [place] [address] PATHOLOGIST DRYWALL INSTALLER CELESTE GERMAN M.D.NormalThe [facility] Physician GroupComment on above: Performed By: #### GS, AERC ####[facility] [place] [address] USATriglycerideson 44-65-2709Ppidjjbtwoqu [Mass/Vol]109 mg/eGGlnzhk08-367Vkj [facility] Physician GroupComment on above:Result Comment: TRIG ATP III CLASSIFICATION TRIG less than 150 mg/dL Normal TRIG 150-199 mg/dL Borderline high TRIG 200-500 mg/dL High TRIG greater than 500 mg/dL Very high Standard traceable to the Center for Disease Conrtrol and Prevention (CDC) test method.PERFORMED BY:[address] [place], [place] [phone] MEDICAL ELÍAS GERMAN M.D.Performed By: #### TRIG ####[address] [address] USAXR chest 1V portableon 69-96-8773DV chest 1V portableNormalThe [facility] Physician GroupAnti-Xa UF Heparinon 27-17-4720Ybdt-Xa UF Heparin0.35Normal 0.30-0.70The [facility] Physician [facility] HospitalComment on above:Result Comment: Use the aPTT protocol when triglycerides are > 800 mg/dL, total bilirubin is > 20 mg/dL and/or patient has received a DOAC, Fondaparinux or LMWH within 72 hours AND baseline anti-Xa level is > 0.7 units/mLPERFORMED BY:[address] [place], [place] [phone] MEDICAL ELÍAS GERMAN M.D.Performed By: #### UFHEP ####[address] [address] USAArterial Blood Gason 65-91-7835MVM Base Excess-0.6 mmol/LNormal-3.0-3.0The [facility] Comment on above:Performed By: #### ABG ####Point of Care testing,ABG Frac Inspired O260 %NormalThe [facility] Physician GroupComment on above:Performed By: #### ABG ####Point of Care testing,ABG Oxygen Content6.7 mmol/LNormal6.6-9.7The [facility] Physician [facility] HospitalComment on above:Performed By: #### ABG ####Point of Care testing,ABG Oxygen Vstvybetem88.9 %Low95.0-100.0The [facility] Physician GroupComment on above:Performed By: #### ABG ####Point of Care testing,ABG PCO2 47.1 mm[Hg]High35.0-45.0The [facility] Physician GroupComment on above:Performed By: #### ABG ####Point of Care testing,ABG ZPHX4GtvcadGsyUNC Health [facility] Val[facility] Physician GroupComment on above:Performed By: #### ABG ####Point of Care testing,ABG PH 7.33Lwxuou9.35-7.45The [facility] Physician GroupComment on above:Performed By: #### ABG ####Point of Care testing,ABG PO275.5 mm[Hg]Low80.0-100.0The [facility] Physician GroupComment on above:Performed By: #### ABG ####Point of Care testing,ABG TV500 mLNormalThe [facility] Physician GroupComment on above: Performed By: #### ABG ####Point of Care testing,CO2 [Moles/Vol]26.7 mmol/L Mdxkew84.0-27.0The [facility] Physician GroupComment on above:Performed By: #### ABG ####Point of Care testing,HCO3 (Bld) [Moles/Vol]25.3 mmol/GKdqozb70.0-29.0 The [facility] Physician GroupComment on above:Performed By: #### ABG ####Point of Care testing,Respiratory CriticalMorton Plant Hospital Physician GroupComment on above:Result Comment: Critical Value called on: 08/03/2025 at 04:44PERFORMED BY:[facility] DOM[place]UE[place]QUE[place], [place] [phone] MEDICAL DIRECTORCELESTE GERMAN M.D.Performed By: #### ABG ####Point of Care testing,Set Respiratory Eoki46EvfdqiMqiUNC Health [facility] Val[facility]e Physician GroupComment on above:Performed By: #### ABG ####Point of Care testing,VBG Draw SiteRight RadialMorton Plant Hospital Physician GroupComment on above:Performed By: #### ABG ####Point of Care testing,Ventilator ModeACNormal [facility] Physician GroupComment on above:Performed By: #### ABG ####Point of Care testing,Basic Metabolic Panelon 88-73-9570Jqctm gap [Moles/Vol]7.9 mmol/LNormal6.0-15.0The [facility] Physician GroupComment on above:Performed By: #### CBC, BMP ####[address] [address] USACalcium [Mass/Vol]8.1 mg/dLLow8.6-10.3The [facility] Comment on above:Performed By: #### CBC, BMP ####[address] [address] USAChloride [Moles/Vol]106 mmol/LNormal 98-107The [facility] Physician GroupComment on above:Performed By: #### CBC, BMP ####[address] [address] USACO2 [Moles/Vol]28.9 mmol/EXujwcb98.0-31.0The [facility] Physician GroupComment on above:Performed By: #### CBC, BMP ####[address] [address] USACreatinine [Mass/Vol]1.49 mg/dLHigh0.70-1.30The [facility] Physician GroupComment on above:Performed By: #### CBC, BMP ####[address] [address] [place] Creatinine Clr Calc Jqmbhfae01.84NormalThe [facility] Physician GroupComment on above:Result Comment: PERFORMED BY:[address] [place]rem[place], [place] [phone] MEDICAL ELÍAS GERMAN M.D.Performed By: #### CBC, BMP ####[address] [address] USAGFR/1.73 sq M.predicted MDRD (S/P/Bld) [Vol rate/Area]51.439 mL/min/{1.73_m2}NormalThe [facility] Physician GroupComment on above:Performed By: #### CBC, BMP ####[address] [address] USAGlucose [Mass/Vol]87 mg/iROgbyny76-038Rwq [facility] Physician GroupComment on above:Result Comment: Random Glucose Reference Range is dependent on time and content of last meal. Glucose of more than 200 mg/dL in a nonstressed, ambulatory subject supports the diagnosis of Diabetes Mellitus. ADA recommended reference rangePerformed By: #### CBC, BMP ####[place] [address] [place] [address] USAPotassium [Moles/Vol] 3.8 mmol/LNormal3.5-5.1The [facility] Physician GroupComment on above:Performed By: #### CBC, BMP ####[address] [address] USASodium [Moles/Vol]139 mmol/HKbwqfk940-890Lot [facility] Physician GroupComment on above:Performed By: #### CBC, BMP ####[address] [address] USAUrea nitrogen [Mass/Vol]50 mg/dLHigh 7-e [facility] Physician GroupComment on above:Performed By: #### CBC, BMP ####[place] [address] [facility] Complete Blood Count Auto Diffon 98-61-1074Fepzbitsy (Bld) [#/Vol]0.0 10*3/uL Normal0.0-0.2The [facility] Physician [facility] HospitalComment on above:Result Comment: PERFORMED BY:[address] [place], [place] [phone] MEDICAL DIRECTORCELESTE GERMAN M.D.Performed By: #### CBC, BMP ####[place] [address] USABasophils/100 WBC (Bld)0.2 %Normal.The [facility] Physician GroupComment on above:Performed By: #### CBC, BMP ####[address] [address] USAEosinophils (Bld) [#/Vol]0.0 10*3/uLNormal 0.0-0.45The [facility] Physician [facility] HospitalComment on above:Performed By: #### CBC, BMP ####[address] [address] [place] Eosinophils/100 WBC (Bld)0.4 %Normal.The [facility] Physician GroupComment on above:Performed By: #### CBC, BMP ####[place] [address] USAErythrocyte distribution width (RBC) [Ratio]15.4 % High12.0-14.8The [facility] Physician GroupComment on above:Performed By: #### CBC, BMP ####[place] [address] USAHematocrit (Bld) [Volume fraction]31.4 %Low38.8-50.0The [facility] Physician GroupComment on above:Performed By: #### CBC, BMP ####[place] [address] USAHemoglobin (Bld) [Mass/Vol]10.4 g/dL Low13.0-17.0The [facility] Physician GroupComment on above:Performed By: #### CBC, BMP ####[place] [address] USALymphocytes (Bld) [#/Vol]0.4 10*3/uLLow1.00-4.8The [facility] Comment on above:Performed By: #### CBC, BMP ####[place] [address] USALymphocytes/100 WBC (Bld)7.5 %Normal. The [facility] Physician GroupComment on above:Performed By: #### CBC, BMP ####[place] [address] USAMCH (RBC) [Entitic mass]31.1 sxJjinjm48.5-35.2The [facility] Physician GroupComment on above:Performed By: #### CBC, BMP ####[place] [address] USAMCV (RBC) [Entitic vol]93.6 iAVtkmei69.5-101 The [facility] Physician GroupComment on above:Performed By: #### CBC, BMP ####[place] [address] USAMean Corpuscular HGB Conc33.2 g/tSRjeznt07.5-35.6The [facility] Physician GroupComment on above:Performed By: #### CBC, BMP ####[place] [address] USAMonocytes (Bld) [#/Vol]0.6 10*3/uLNormal 0.0-0.8The [facility] Physician GroupComment on above:Performed By: #### CBC, BMP ####[place] [address] [place] Monocytes/100 WBC (Bld)12.5 %Normal.The [facility] Physician GroupComment on above:Performed By: #### CBC, BMP ####[place] [address] USANeutrophils (Bld) [#/Vol]4.0 10*3/uLNormal1.8-7.7The [facility] Physician GroupComment on above:Performed By: #### CBC, BMP ####[place] [address] [place] Neutrophils/100 WBC (Bld)79.4 %Normal.The [facility] Physician GroupComment on above:Performed By: #### CBC, BMP ####[place] [address] USANRBC%0.2 /100{WBC}Normal0-0.5The [facility] Physician GroupComment on above:Performed By: #### CBC, BMP ####[place] [address] USAPlatelet mean volume (Bld) [Entitic vol]7.7 fLNormal6.6-10.1The [facility] Physician GroupComment on above: Performed By: #### CBC, BMP ####[place] [address] USAPlatelets (Bld) [#/Vol]180 10*3/zEWfmgsv038-159Nfc [facility] Physician [facility] HospitalComment on above:Performed By: #### CBC, BMP ####[address] [address] USARBC (Bld) [#/Vol]3.36 10*6/uLLow3.90-5.60The [facility] Physician [facility] HospitalComment on above:Performed By: #### CBC, BMP ####[place] [address] USAWBC (Bld) [#/Vol]5.1 10*3/uLNormal4.1-10.5The [facility] Physician [facility] HospitalComment on above:Performed By: #### CBC, BMP ####[place] [address] USAWhite Blood Count5.1 [CFU]/mLNormal4.1-10.5The [facility] Physician [facility] HospitalComment on above:Performed By: #### CBC, BMP ####[place] [address] USAXR chest 1V portableon 11-71-1798VS chest 1V portableNormalThe [facility] Physician GroupAnti-Xa UF Heparinon 24-07-8202Frnt- Xa UF Heparin0.95Obdfng7.30-0.70The [facility] Physician [facility] HospitalComment on above: Result Comment: Use the aPTT protocol when triglycerides are > 800 mg/dL, total bilirubin is > 20 mg/dL and/or patient has received a DOAC, Fondaparinux or LMWH within 72 hours AND baseline anti-Xa level is > 0.7 units/mLPERFORMED BY:[address] [place], [place] [phone] MEDICAL DIRECTORCELESTE GERMAN M.D.Performed By: #### UFHEP ####[address] [address] USAAnti-Xa UF Heparin0.69Ejualh2.30-0.70The [facility] Physician [facility] HospitalComment on above:Result Comment: Use the aPTT protocol when triglycerides are > 800 mg/dL, total bilirubin is > 20 mg/dL and/or patient has received a DOAC, Fondaparinux or LMWH within 72 hours AND baseline anti-Xa level is > 0.7 units/mLPERFORMED BY:[facility] [place]UE[place]QUE[place], [place] [phone] MEDICAL DIRECTORCELESTE GERMAN M.D.Performed By: #### UFHEP ####[facility] [place] [address] USAArterial Blood Gason 33-22-6462DAX Base Excess-5.8 mmol/LLow-3.0-3.0The [facility] Physician GroupComment on above:Performed By: #### ABG ####Point of Care testing,ABG Frac Inspired O265 %NormalThe [facility] Physician GroupComment on above:Performed By: #### ABG ####Point of Care testing,ABG Oxygen Content7.0 mmol/LNormal6.6-9.7The [facility] Physician GroupComment on above:Performed By: #### ABG ####Point of Care testing,ABG Oxygen Fqhswstbbn09.5 %Qvenft34.0-100.0 The [facility] Physician GroupComment on above:Performed By: #### ABG ####Point of Care testing,ABG REY245.8 mm[Hg]Daxpwm94.0-45.0The [facility] Physician [facility] Comment on above:Performed By: #### ABG ####Point of Care testing,ABG PEEP5 NormalThe [facility] Physician GroupComment on above:Performed By: #### ABG ####Point of Care testing,ABG PH7.34Low7.35-7.45The [facility] Physician [facility] Comment on above:Performed By: #### ABG ####Point of Care testing,ABG PO287.9 mm[Hg]Tfnxmc23.0-100.0The [facility] Physician GroupComment on above:Performed By: #### ABG ####Point of Care testing,ABG TV500 mLNormalThe [facility] Physician GroupComment on above:Performed By: #### ABG ####Point of Care testing,CO2 [Moles/Vol]20.5 mmol/LLow23.0-27.0The [facility] Physician GroupComment on above: Performed By: #### ABG ####Point of Care testing,HCO3 (Bld) [Moles/Vol]19.4 mmol/LLow23.0-29.0The [facility] Physician GroupComment on above:Performed By: #### ABG ####Point of Care testing,Respiratory CriticalMorton Plant Hospital Physician GroupComment on above:Result Comment: Critical Value called on: 08/02/2025 at 04:17PERFORMED BY:[address] [place], [place] [phone] MEDICAL DIRECTORCELESTE GERMAN M.D.Performed By: #### ABG ####Point of Care testing,Set Respiratory Rate16 NormalOrlando Health [facility] Center Physician GroupComment on above:Performed By: #### ABG ####Point of Care testing,VBG Draw SiteLeft BrachialMorton Plant Hospital Physician GroupComment on above:Performed By: #### ABG ####Point of Care testing,Ventilator ModeACMorton Plant Hospital Physician GroupComment on above: Performed By: #### ABG ####Point of Care testing,Basic Metabolic Panelon 02-83-2095Fjsix gap [Moles/Vol]12.0 mmol/LNormal6.0-15.0The [facility] Physician GroupComment on above:Performed By: #### BMP, CBC ####[place] [address] USACalcium [Mass/Vol]8.6 mg/dLNormal 8.6-10.3The [facility] Physician GroupComment on above:Performed By: #### BMP, CBC ####[address] [address] [place] Chloride [Moles/Vol]100 mmol/MSnvqan89-731Urp [facility] Physician GroupComment on above:Performed By: #### BMP, CBC ####[address] [address] USACO2 [Moles/Vol]28.3 mmol/QMkrxzw89.0-31.0The [facility] Physician GroupComment on above:Performed By: #### BMP, CBC ####[address] [address] [place] Creatinine [Mass/Vol]2.27 mg/dLHigh0.70-1.30The [facility] Physician GroupComment on above:Performed By: #### BMP, CBC ####[address] [address] USACreatinine Clr Calc Faaslwhl15.41NormAdventHealth North Pinellas Physician GroupComment on above:Result Comment: PERFORMED BY:[address] [place], [place] [phone] MEDICAL DIRECTORCELESTE GERMAN M.D.Performed By: #### BMP, CBC ####[address] [address] USAGFR/1.73 sq M.predicted MDRD (S/P/Bld) [Vol rate/Area]31.037 mL/min/{1.73_m2}NormalThe [facility] Physician [facility] HospitalComment on above:Performed By: #### BMP, CBC ####[address] [address] USAGlucose [Mass/Vol]96 mg/yJFqgnga19-749Dhm [place] Physician [facility] HospitalComment on above: Result Comment: Random Glucose Reference Range is dependent on time and content of last meal. Glucose of more than 200 mg/dL in a nonstressed, ambulatory subject supports the diagnosis of Diabetes Mellitus. ADA recommended reference rangePerformed By: #### BMP, CBC ####[address] [address] USAPotassium [Moles/Vol]4.3 mmol/LNormal3.5-5.1The [facility] Physician GroupComment on above:Performed By: #### BMP, CBC ####[address] [address] USASodium [Moles/Vol]136 mmol/NYnxuyv784-103Mnm [facility] Physician GroupComment on above: Performed By: #### BMP, CBC ####[address] [address] USAUrea nitrogen [Mass/Vol]70 mg/dLHigh7-25The [facility] Physician GroupComment on above:Performed By: #### BMP, CBC ####[place] [address] [facility] Complete Blood Count Auto Diffon 96-63-7513Fqzsqkfjy (Bld) [#/Vol]0.0 10*3/uL Normal0.0-0.2The [facility] Physician GroupComment on above:Result Comment: PERFORMED BY:[address] [place], [place] [phone] MEDICAL DIRECTORCELESTE GERMAN M.D.Performed By: #### BMP, CBC ####[place] [address] USABasophils/100 WBC (Bld)0.1 %Normal.The [facility] Physician GroupComment on above:Performed By: #### BMP, CBC ####[address] [address] USAEosinophils (Bld) [#/Vol]0.0 10*3/uLNormal 0.0-0.45The [facility] Physician GroupComment on above:Performed By: #### BMP, CBC ####[place] [address] [facility] Eosinophils/100 WBC (Bld)0.1 %Normal.The [facility] Physician GroupComment on above:Performed By: #### BMP, CBC ####[address] [address] USAErythrocyte distribution width (RBC) [Ratio]15.4 % High12.0-14.8The [facility] Physician GroupComment on above:Performed By: #### BMP, CBC ####[place] [address] USAHematocrit (Bld) [Volume fraction]36.1 %Low38.8-50.0The [facility] Physician GroupComment on above:Performed By: #### BMP, CBC ####[place] [address] USAHemoglobin (Bld) [Mass/Vol]11.7 g/dL Low13.0-17.0The [facility] Physician GroupComment on above:Performed By: #### BMP, CBC ####[place] [address] USALymphocytes (Bld) [#/Vol]0.4 10*3/uLLow1.00-4.8The [facility] Comment on above:Performed By: #### BMP, CBC ####[place] [address] USALymphocytes/100 WBC (Bld)6.9 %Normal. The [facility] Physician GroupComment on above:Performed By: #### BMP, CBC ####[place] [address] [facility] HOS[facility]ITALMCH (RBC) [Entitic mass]30.3 esHlyrhn53.5-35.2The [facility] Physician GroupComment on above:Performed By: #### BMP, CBC ####[place] [address] [facility]ITALMCV (RBC) [Entitic vol]93.6 bTHidqrx76.5-101 The [facility] Physician GroupComment on above:Performed By: #### BMP, CBC ####[place] [address] USAMean Corpuscular HGB Conc32.3 g/dLLow32.5-35.6The [facility] Physician GroupComment on above:Performed By: #### BMP, CBC ####[place] [address] USAMonocytes (Bld) [#/Vol]0.7 10*3/uLNormal0.0-0.8The [facility] Physician GroupComment on above:Performed By: #### BMP, CBC ####[place] [id number] [place] Monocytes/100 WBC (Bld)11.9 %Normal.The [facility] Physician GroupComment on above:Performed By: #### BMP, CBC ####[place] [address] USANeutrophils (Bld) [#/Vol]4.9 10*3/uLNormal1.8-7.7The [facility] Physician GroupComment on above:Performed By: #### BMP, CBC ####[place] [address] [place] Neutrophils/100 WBC (Bld)81.0 %Normal.The [facility] Physician GroupComment on above:Performed By: #### BMP, CBC ####[place] [address] USANRBC%0.1 /100{WBC}Normal0-0.5The [facility] Physician GroupComment on above:Performed By: #### BMP, CBC ####[place] [address] USAPlatelet mean volume (Bld) [Entitic vol]7.8 fLNormal6.6-10.1The [facility] Physician GroupComment on above: Performed By: #### BMP, CBC ####[place] [address] USAPlatelets (Bld) [#/Vol]188 10*3/nPOzpzbj424-704Kea [facility] Physician GroupComment on above:Performed By: #### BMP, CBC ####[place] [address] USARBC (Bld) [#/Vol]3.86 10*6/uLLow3.90-5.60The [facility] Physician GroupComment on above:Performed By: #### BMP, CBC ####[place] [address] USAWBC (Bld) [#/Vol]6.1 10*3/uLNormal4.1-10.5The [facility] Physician GroupComment on above:Performed By: #### BMP, CBC ####[address] [place] [address] [facility]ITALWhite Blood Count6.1 [CFU]/mLNormal4.1-10.5The [facility] Physician [facility] HospitalComment on above:Performed By: #### BMP, CBC ####[address] [address] USAECH echo transthoracicon 09-08-9619ZQW echo transthoracicNormAdventHealth North Pinellas Physician [facility] HospitalXR chest 1V portableon 33-20-8688FL chest 1V portableNoUniversity Hospitals Cleveland Medical CenterAnti-Xa UF Heparinon 88-79-9425Lbqq-Xa UF Heparin0.21Low0.30-0.70The [facility] HospitalComment on above:Result Comment: Use the aPTT protocol when triglycerides are > 800 mg/dL, total bilirubin is > 20 mg/dL and/or patient has received a DOAC, Fondaparinux or LMWH within 72 hours AND baseline anti-Xa level is > 0.7 units/mLPERFORMED BY:[address] ANDREEJeremiMORT[place], [place] [phone] MEDICAL ELÍAS GERMAN M.D.Performed By: #### UFHEP ####[address] [address] USAAnti-Xa UF Heparin0.20Low0.30-0.70The [facility] Physician [facility] HospitalComment on above:Result Comment: Use the aPTT protocol when triglycerides are > 800 mg/dL, total bilirubin is > 20 mg/dL and/or patient has received a DOAC, Fondaparinux or LMWH within 72 hours AND baseline anti-Xa level is > 0.7 units/mLPERFORMED BY:[address] [place], [place] [phone] MEDICAL ELÍAS GERMAN M.D.Performed By: #### UFHEP ####[address] [address] USAAnti-Xa UF Heparin0.05Low0.30-0.70The [facility] Physician GroupComment on above:Result Comment: Use the aPTT protocol when triglycerides are > 800 mg/dL, total bilirubin is > 20 mg/dL and/or patient has received a DOAC, Fondaparinux or LMWH within 72 hours AND baseline anti-Xa level is > 0.7 units/mLPERFORMED BY:[facility] DOM[place]UE[place]QUE[place], [place] [phone] MEDICAL DIRECTORCELESTE GERMAN M.D.Performed By: #### UFHEP ####[facility] [place] [address] USAArterial Blood Gason 35-22-7867RCT Base Excess-6.6 mmol/LLow-3.0-3.0The [facility] Physician GroupComment on above:Performed By: #### ABG ####Point of Care testing,ABG Frac Inspired O245 %NormalThe [facility] Physician GroupComment on above:Performed By: #### ABG ####Point of Care testing,ABG Oxygen Content7.6 mmol/LNormal6.6-9.7The [facility] Physician GroupComment on above:Performed By: #### ABG ####Point of Care testing,ABG Oxygen Hzvbdgzruw20.6 %Ugcfqh17.0-100.0 The [facility] Physician GroupComment on above:Performed By: #### ABG ####Point of Care testing,ABG BFS253.5 mm[Hg]Pkybyf40.0-45.0The [facility] Physician [facility] Comment on above:Performed By: #### ABG ####Point of Care testing,ABG PEEP5 NormalThe [facility] Physician GroupComment on above:Performed By: #### ABG ####Point of Care testing,ABG PH7.30Low7.35-7.45The [facility] Physician [facility] Comment on above:Performed By: #### ABG ####Point of Care testing,ABG PO288.3 mm[Hg]Sscryb50.0-100.0The [facility] Physician GroupComment on above:Performed By: #### ABG ####Point of Care testing,ABG TV500 mLNormalThe [facility] Physician GroupComment on above:Performed By: #### ABG ####Point of Care testing,CO2 [Moles/Vol]20.6 mmol/LLow23.0-27.0The [facility] Physician GroupComment on above: Performed By: #### ABG ####Point of Care testing,HCO3 (Bld) [Moles/Vol]19.4 mmol/LLow23.0-29.0The [facility] Physician GroupComment on above:Performed By: #### ABG ####Point of Care testing,Respiratory CriticalMorton Plant Hospital Physician GroupComment on above:Result Comment: Critical Value called on: 08/01/2025 at 05:05PERFORMED BY:[address] [place], [place] [phone] MEDICAL ELÍAS GERMAN M.D.Performed By: #### ABG ####Point of Care testing,Set Respiratory Rate16 NormalThe [facility] Physician GroupComment on above:Performed By: #### ABG ####Point of Care testing,VBG Draw SiteRight BrachialNoUNC Health Blue Ridge - Valdese Physician GroupComment on above:Performed By: #### ABG ####Point of Care testing,Ventilator ModeACMorton Plant Hospital Physician GroupComment on above: Performed By: #### ABG ####Point of Care testing,B-Type Natriuretic Peptideon 72-10-8762Rvhmnohzwyl peptide B (Bld) [Mass/Vol]440.0 pg/mLHigh5-100The [facility] Physician GroupComment on above:Result Comment: PERFORMED BY:[address] DOMINGUE[place]QUE[place], [place] [phone] MEDICAL ELÍAS GERMAN M.D.Performed By: #### BNP, [id number], LIPID, PT, BMP, LACTIC, CBC, PTT ####[address] [place] [address] USABasic Metabolic Panelon 31-87-9128Ruabp gap [Moles/Vol]11.8 mmol/LNormal6.0-15.0The [facility] Physician GroupComment on above:Order Comment: FASTING YPerformed By: #### BNP, [id number], LIPID, PT, BMP, LACTIC, CBC, PTT ####[place] [address] [place] [address] USACalcium [Mass/Vol]8.0 mg/dLLow8.6-10.3The [facility]ician Group Comment on above:Order Comment: FASTING YPerformed By: #### BNP, [id number], LIPID, PT, BMP, LACTIC, CBC, PTT ####[address] [address] USAChloride [Moles/Vol]99 mmol/PSqacbs01-988Tfl [facility] Physician GroupComment on above:Order Comment: FASTING YPerformed By: #### BNP, [id number], LIPID, PT, BMP, LACTIC, CBC, PTT ####[address] [address] USACO2 [Moles/Vol]27.6 mmol/L Yidbob56.0-31.0The [facility] Physician GroupComment on above:Order Comment: FASTING YPerformed By: #### BNP, [id number], LIPID, PT, BMP, LACTIC, CBC, PTT ####[address] [address] [place] Creatinine [Mass/Vol]2.82 mg/dLHigh0.70-1.30The [facility] Physician GroupComment on above:Order Comment: FASTING YPerformed By: #### BNP, [id number], LIPID, PT, BMP, LACTIC, CBC, PTT ####[address] [address] USACreatinine Clr Calc Knkhpfte80.70NormalThe [facility] Physician GroupComment on above:Order Comment: FASTING YPerformed By: #### BNP, [id number], LIPID, PT, BMP, LACTIC, CBC, PTT ####[facility] [address] [place] [address] USAGFR/1.73 sq M.predicted MDRD (S/P/Bld) [Vol rate/Area]23.923 mL/min/{1.73_m2}NormalThe [facility] Physician GroupComment on above:Order Comment: FASTING YPerformed By: #### BNP, [id number], LIPID, PT, BMP, LACTIC, CBC, PTT ####[address] [address] USAGlucose [Mass/Vol]95 mg/wXPmkjsq03-495Lfs [facility] Physician GroupComment on above:Order Comment: FASTING YResult Comment: Random Glucose Reference Range is dependent on time and content of last meal. Glucose of more than 200 mg/dL in a nonstressed, ambulatory subject supports the diagnosis of Diabetes Mellitus. ADA recommended reference rangePerformed By: #### BNP, [id number], LIPID, PT, BMP, LACTIC, CBC, PTT ####[address] [address] USAPotassium [Moles/Vol]4.4 mmol/LNormal3.5-5.1The [facility] Physician GroupComment on above:Order Comment: FASTING YPerformed By: #### BNP, [id number], LIPID, PT, BMP, LACTIC, CBC, PTT ####[place] [address] USASodium [Moles/Vol]134 mmol/DJin621-953Kew [facility] Physician GroupComment on above: Order Comment: FASTING YPerformed By: #### BNP, [id number], LIPID, PT, BMP, LACTIC, CBC, PTT ####[address] [address] USAUrea nitrogen [Mass/Vol]77 mg/dLHigh7-25The [facility] Physician Group Comment on above:Order Comment: FASTING YPerformed By: #### BNP, [id number], LIPID, PT, BMP, LACTIC, CBC, PTT ####[address] [address] USAComplete Blood Count Auto Diffon 33-23-1470Eenyqdzti (Bld) [#/Vol]0.0 10*3/uLNormal0.0-0.2The [facility] Physician GroupComment on above:Result Comment: PERFORMED BY:[address] [place], [place] [phone] MEDICAL DIRECTORCELESTE GERMAN M.D.Performed By: #### BNP, [id number], LIPID, PT, BMP, LACTIC, CBC, PTT ####[address] Basophils/100 WBC (Bld)0.1 %Normal.The [facility] Physician GroupComment on above:Performed By: #### BNP, [id number], LIPID, PT, BMP, LACTIC, CBC, PTT ####[address] Eosinophils (Bld) [#/Vol]0.0 10*3/uLNormal0.0-0.45The [facility]ician Group Comment on above:Performed By: #### BNP, [id number], LIPID, PT, BMP, LACTIC, CBC, PTT ####[address] Eosinophils/100 WBC (Bld)0.0 %Normal.The [facility] Physician GroupComment on above:Performed By: #### BNP, [id number], LIPID, PT, BMP, LACTIC, CBC, PTT ####[address] Erythrocyte distribution width (RBC) [Ratio]15.8 %High12.0-14.8The [facility] Physician GroupComment on above:Performed By: #### BNP, [id number], LIPID, PT, BMP, LACTIC, CBC, PTT ####[place] [address] USAHematocrit (Bld) [Volume fraction]37.9 %Low38.8-50.0 The [facility] Physician GroupComment on above:Performed By: #### BNP, [id number], LIPID, PT, BMP, LACTIC, CBC, PTT ####[place] [address] USAHemoglobin (Bld) [Mass/Vol]12.5 g/dLLow13.0-17.0The [facility] Physician GroupComment on above:Performed By: #### BNP, [id number], LIPID, PT, BMP, LACTIC, CBC, PTT ####[place] [address] USALymphocytes (Bld) [#/Vol]0.4 10*3/uLLow1.00-4.8The [facility] Physician GroupComment on above:Performed By: #### BNP, [id number], LIPID, PT, BMP, LACTIC, CBC, PTT ####[place] [address] USALymphocytes/100 WBC (Bld)9.8 %Normal.The [facility] Physician GroupComment on above:Performed By: #### BNP, [id number], LIPID, PT, BMP, LACTIC, CBC, PTT ####[address] (RBC) [Entitic mass]30.7 xvKzclgu64.5-35.2The [facility] Physician GroupComment on above:Performed By: #### BNP, [id number], LIPID, PT, BMP, LACTIC, CBC, PTT ####[address]V (RBC) [Entitic vol]93.1 sUCcisiu10.5-101The [facility] Physician GroupComment on above:Performed By: #### BNP, [id number], LIPID, PT, BMP, LACTIC, CBC, PTT ####[place] [address] USAMean Corpuscular HGB Conc32.9 g/iTZqibmg34.5-35.6The [facility] Physician GroupComment on above:Performed By: #### BNP, [id number], LIPID, PT, BMP, LACTIC, CBC, PTT ####[place] [address] USAMonocytes (Bld) [#/Vol]0.3 10*3/uLNormal0.0-0.8The [facility] Physician GroupComment on above:Performed By: #### BNP, [id number], LIPID, PT, BMP, LACTIC, CBC, PTT ####[place] [address] USAMonocytes/100 WBC (Bld)7.7 %Normal.The [facility] Physician GroupComment on above:Performed By: #### BNP, [id number], LIPID, PT, BMP, LACTIC, CBC, PTT ####[place] [address] USANeutrophils (Bld) [#/Vol]3.6 10*3/uLNormal1.8-7.7The [facility] Physician GroupComment on above:Performed By: #### BNP, [id number], LIPID, PT, BMP, LACTIC, CBC, PTT ####[place] [address] USANeutrophils/100 WBC (Bld)82.4 %Normal.The [facility] Physician GroupComment on above:Performed By: #### BNP, [id number], LIPID, PT, BMP, LACTIC, CBC, PTT ####[place] [address] USANRBC%0.0 /100{WBC}Normal0-0.5The [facility] Physician GroupComment on above:Performed By: #### BNP, [id number], LIPID, PT, BMP, LACTIC, CBC, PTT ####[place] [address] USAPlatelet mean volume (Bld) [Entitic vol]7.8 fLNormal6.6-10.1The [facility] Physician GroupComment on above:Performed By: #### BNP, [id number], LIPID, PT, BMP, LACTIC, CBC, PTT ####[place] [address] USAPlatelets (Bld) [#/Vol]194 10*3/lTHuqtws629-810Vbp [facility] Physician GroupComment on above:Performed By: #### BNP, [id number], LIPID, PT, BMP, LACTIC, CBC, PTT ####[place] [address] USARBC (Bld) [#/Vol]4.07 10*6/uLNormal3.90-5.60The [facility] Physician GroupComment on above:Performed By: #### BNP, [id number], LIPID, PT, BMP, LACTIC, CBC, PTT ####[address] [address] USAWBC (Bld) [#/Vol]4.4 10*3/uLNormal4.1-10.5The [facility] Physician GroupComment on above:Performed By: #### BNP, [id number], LIPID, PT, BMP, LACTIC, CBC, PTT ####[place] [address] USAWhite Blood Count4.4 [CFU]/mLNormal4.1-10.5The [facility] Physician GroupComment on above:Performed By: #### BNP, [id number], LIPID, PT, BMP, LACTIC, CBC, PTT ####[address] [address] USACreatine Kinaseon 82-40-7996LZ [Catalytic activity/Vol]61 U/EFgdfyc37-717Lod [facility] Physician GroupComment on above: Performed By: #### HS TROP, CK ####[address] [address] USACK [Catalytic activity/Vol]80 U/UAlqdmr84-602Zix [facility] Physician GroupComment on above:Performed By: #### CK, HS TROP ####[address] [address] USACK [Catalytic activity/Vol]103 U/ZIlizxc04-885Eof [facility] Physician GroupComment on above:Performed By: #### HS TROP, CK ####[address] [address] USACK [Catalytic activity/Vol]121 U/JDhgank44-103 The [facility] Physician GroupComment on above:Performed By: #### CK, HS TROP ####[place] [address] USAECG 12 lead ECGon 28-96-8636RIP 12 lead ECGMorton Plant Hospital Physician [facility] HospitalGlucose Poct Glucometerson 50-61-3016Dzeovqs1Knh2: Cleaned MeterNoUNC Health Blue Ridge - Valdese Physician [facility] HospitalComment on above:Result Comment: PERFORMED BY:[address] [place], [place] [phone] MEDICAL DIRECTORCELESTE GERMAN M.D.Performed By: #### GLULS ####Point of Care testing, Glucose [Mass/Vol]87 mg/dLNoUNC Health Blue Ridge - Valdese Physician GroupComment on above: Result Comment: Random Glucose Reference Range is dependent on time and content of last meal. Glucose of more than 200 mg/dL in a nonstressed, ambulatory subject supports the diagnosis of Diabetes Mellitus.Performed By: #### GLULS ####Point of Care testing,Lactic Acidon 72-31-8696Nhghsfb [Moles/Vol]1.6 mmol/L Normal0.5-1.9The [facility] Physician GroupComment on above:Result Comment: Lactic Acid reference range has been updated to 0.5 ? 1.9 mmol/L and the critical range of 2.0 or greater.PERFORMED BY:[address] [place], [place] [phone] MEDICAL ELÍAS GERMAN M.D.Performed By: #### BNP, [id number], LIPID, PT, BMP, LACTIC, CBC, PTT ####[facility] [address] [place] [address] USALactic Acid Reflexon 31-60-7298Zynoel Acid Reflex2.3 mmol/LOff scale high0.5-1.9The [facility] Physician GroupComment on above:Result Comment: Critical Result : Called to and read back by: IDANIA OCHOA at: 08/01/2025 00:53:29 by:[id number] Lactic Acid reference range has been updated to 0.5 ? 1.9 mmol/L and the critical range of 2.0or greater.PERFORMED BY:[address] [place]AG[place], [place] [phone] MEDICAL ELÍAS GERMAN M.D.Performed By: #### LACTIC RFX ####[address] [address]FJHGdjfn Panelon 40-05-1013Thqzehetlhn [Mass/Vol]111 mg/tTJkq793-776Daw [facility] Physician Group Comment on above:Order Comment: FASTING YResult Comment: Chol less than 200 mg/dl low risk Chol 201-239 mg/dl borderline risk Chol 240 mg/dland greater high riskPerformed By: #### BNP, [id number], LIPID, PT, BMP, LACTIC, CBC, PTT ####[place] [id number] [facility] Cholesterol in HDL [Mass/Vol]38 mg/vIIzxfwj97-22Eiz [facility]ician Group Comment on above:Order Comment: FASTING YResult Comment: HDL CHOL ATP-III CLASSIFICATION Cardiovascular Risk HDL > or equal to 60 mg/dL LOW HDL < 40 mg/dL HIGHPerformed By: #### BNP, [id number], LIPID, PT, BMP, LACTIC, CBC, PTT ####[address] [address] [facility] Cholesterol.total/Cholesterol in HDL [Mass ratio]2.9 {ratio}Normal<5.0The [facility] Physician GroupComment on above:Order Comment: FASTING YPerformed By: #### BNP, [id number], LIPID, PT, BMP, LACTIC, CBC, PTT ####[address] [address] USALDL Cholesterol,Sujnmtdekq12 mg/dLNormal0-100The [facility] Physician GroupComment on above:Order Comment: FASTING YResult Comment: LDL ATP III CLASSIFICATION LDL less than 100 mg/dL Optimal LDL 100-129 mg/dL Near or above optimal LDL 130-159 mg/dL Borderline high LDL 160-189 mg/dL High LDL greater than 189 mg/dL Very highPerformed By: #### BNP, [id number], LIPID, PT, BMP, LACTIC, CBC, PTT ####[address] [address] USATriglyceride w/Dnkcse197 mg/dL High0-149The [facility] Physician GroupComment on above:Order Comment: FASTING Y Result Comment: TRIG ATP III CLASSIFICATION TRIG less than 150 mg/dL Normal TRIG 150-199 mg/dL Borderline high TRIG 200-500 mg/dL High TRIG greater than 500 mg/dL Very high Standard traceable to the Center for Disease Conrtrol and Prevention (CDC) test method.Performed By: #### BNP, [id number], LIPID, PT, BMP, LACTIC, CBC, PTT ####[place] [address] [place] [address] USAVLDL GSOPCUGHBAN28 mg/dLNormAdventHealth North Pinellas Physician GroupComment on above:Order Comment: FASTING YPerformed By: #### BNP, [id number], LIPID, PT, BMP, LACTIC, CBC, PTT ####[place] [address] [place] [address] [facility]ITALPartial Thromboplastin Timeon 70-63-1803oGAT Coag (Bld) [Time]34.1 s Qojioh60.1-36.5The [facility] Physician GroupComment on above:Result Comment: A hematocrit value greater than 55% may lead to inaccurate results in coagulation testing. Patients having hematocrit values >55% require a special collection tube for coagulation studies. Please contact the laboratory at [phone] for redraw instructions.PERFORMED BY:[place] [address] [address] NELLYScarlettJeremi[place], [place] [phone] MEDICAL ELÍAS GERMAN M.D.Performed By: #### BNP, [id number], LIPID, PT, BMP, LACTIC, CBC, PTT ####[place] [address] [place] [address] [facility] Prothrombin Time INRon 91-28-6537GLA Coag (PPP) [Relative time]1.0 {INR}Normal The [facility] Physician GroupComment on above:Result Comment: INR [...] 3 - 4.5 Performed By: #### BNP, [id number], LIPID, PT, BMP, LACTIC, CBC, PTT ####[facility] [place] [address] USAPT Coag (PPP) [Time]11.5 sNormal9.0-12.9The [facility] Physician GroupComment on above: Result Comment: A hematocrit value greater than 55% may lead to inaccurate results in coagulation testing. Patients having hematocrit values >55% require a special collection tube for coagulation studies. Please contact the laboratory at [phone] for redraw instructions.Performed By: #### BNP, [id number], LIPID, PT, BMP, LACTIC, CBC, PTT ####[facility] [place] [address] USAThyroid Antibodies TPO+Tg Abon 08-01-2025 Antithyroglobulin Ab404.0Vqdlqm2.0-0.9The [facility] Physician [facility] HospitalComment on above:Result Comment: Thyroglobulin Antibody measured by Edgar Ubaldo Methodology It should be noted that the presence of thyroglobulin antibodies may not be pathogenic nor diagnostic, especially at very low levels. The assay tent finisher has found that four percent of individuals without evidence of t hyroid disease or autoimmunity will have positive TgAb levels up to 4 IU/mL. Performed at: [facility] [employer] [id number] Procurement Representative: Sidney Osman PhD, Phone: [phone] BY:[address] NELLYScarlettJeremi[place], [place] [phone] MEDICAL DIRECTORCELESTE GERMAN M.D.Performed By: #### THY AB ####[facility] ,Thyroid Peroxidase Rxsimofaxg45Lvfydq4-90Qju [facility] Physician GroupComment on above:Performed By: #### THY AB ####[facility] , Treponema pallidum Ab(FTA-ABS)on 78-60-1878Lhimhotue pallidum Ab(FTA-ABS) Non-ReactiveNormalNon ReactiveThe [facility] Physician GroupComment on above: Result Comment: Performed at: - [facility] [address], [place], [place] [id number] Procurement Representative: Sidney Osman PhD, Phone: [phone] BY:[place] [address] [place], [place] [phone] MEDICAL ELÍAS GERMAN M.D.Performed By: #### VITB1, FTA ####[facility] ,Troponin I High Sensitivityon 76-91-0853Gjaqjvfa I High Exsfmtgdtub6975Niy scale [facility] Physician GroupComment on above:Result Comment: Critical Result : Called to and read back by: MANAN CHEEK at: 08/01/2025 21:08:16 by:[email or web address] The Troponin units of report have been changed to meet the Chest Pain Accreditation req uirement, element EC5.M1l2. Troponin units are changed from pg/ml to ng/L. Also, the decimal is removed and results are in whole numbers.PERFORMED BY:[address] [place], [place] [phone] MEDICAL ELÍAS GERMAN M.D.Performed By: #### HS TROP, CK ####[place] [address] [place] [address] [facility] Troponin I High Hfqgqfepugc1992Bgl scale [facility] Physician Group Comment on above:Result Comment: Critical Result : Called to and read back by: BEV SAUCEDA at: 08/01/2025 10:52:10 by:[id number] The Troponin units of report have been changed to meet the Chest Pain Accreditation requirement, element EC5.M1l2. Troponin units are changed from pg/ml to ng/L. Also, the decimal is removed and results are in whole numbers.PERFORMED BY:[address] [place], [place] [phone] MEDICAL ELÍAS GERMAN M.D.Performed By: #### CK, HS TROP ####[address] [place] [address] USATroponin I High Lvanrcmmnpk4394Xex scale high0-[address] [place] [address] Physician GroupComment on above: Result Comment: Critical Result : Called to and read back by: IDANIA OCHOA at: 08/01/2025 04:33:48 by:[id number] The Troponin units of report have been changed to meet the Chest Pain Accreditation requirement, element EC5.M1l2. Troponin units are changed from pg/ml to ng/L. Also, the decimal is removed andresults are in whole numbers.PERFORMED BY:[address]TAMIASHAR,[place] [phone] MEDICAL DIRECTORCELESTE GERMAN M.D.Performed By: #### HS TROP, CK ####[address] [address] USATroponin I High Myxsbspunpe6920Lft scale [facility] Physician [facility] HospitalComment on above:Result Comment: Critical Result : Called to and read back by: IDANIA OCHOA at: 08/01/2025 00:53:08 by:[id number] The Troponin units of report have been changed to meet the Chest Pain Accreditation requirement, element EC5.M1l2. Troponin units are changed from pg/ml to ng/L. Also, the decimal is removed andresults are in whole numbers.PERFORMED BY:[address] [place] [phone] MEDICAL DIRECTORCELESTE GERMAN M.D.Performed By: #### CK, HS TROP ####[address] [address] USAUS renal BIon 03-87-2812GL renal BINormalThe [facility] Vit. B12/Folate Profileon 93-49-4840Ooqulyyvn (Vitamin B12) [Mass/Vol]435 pg/mL Qzsobp754-666Pcd [facility] HospitalComment on above:Order Comment: FASTING YPerformed By: #### BNP, [id number], LIPID, PT, BMP, LACTIC, CBC, PTT ####[address] [address] USAFolate 11.6 ng/mLNormal>5.9The [facility] Physician GroupComment on above:Order Comment: FASTING YResult Comment: Folate reference range: >5.9 ng/ml The WHO technical consultation on folate and vitamin b12 deficiencies has determined that folate concentrations less than 4 ng/ml are considered deficient.PERFORMED BY:[address] [place], [place] [phone] MEDICAL ELÍAS GERMAN M.D.Performed By: #### BNP, [id number], LIPID, PT, BMP, LACTIC, CBC, PTT ####[address] [address] USAVitamin B1 (Thiamine) Bloodon 87-87-0382Dqyybwf B1 (Thiamine) Blood84.0Crxelq86.5-200.0The [facility] Physician GroupComment on above:Result Comment: This test was developed and its performance characteristics determined by [facility]. It has not been cleared or approved by the Food and Drug Administration. Performed at: [facility] [id number] Procurement Representative: Gareth Alford MD, Phone: [phone] BY:[address] [address] [place]ASHARQUE[place], [place] [phone] MEDICAL ELÍAS GERMAN M.D.Performed By: #### VITB1, FTA ####[facility] ,XR chest 1V portableon 08-01-2025 XR chest 1V portableNormAdventHealth North [facility]ell[facility] Physician SifuxJ7G with Estimated Average Gluon 80-28-1787Hzzsuzu [Mass/Vol]117 mg/dLNormAdventHealth North Pinellas Physician [facility] HospitalComment on above:Result Comment: PERFORMED BY:[address] [place], [place] [phone] MEDICAL ELÍAS GERMAN M.D.Performed By: #### A1C WTH eA ####[address] [place], [place] [address]VSEZaL2p (Bld) [Mass fraction]5.7 %High4.3-5.6The [facility] Physician GroupComment on above:Result Comment: Increased risk for diabetes: 5.7 - 6.4 diabetes: >6.4 glycemic control for adults with diabetes: <7.0Performed By: #### A1C WTH eA ####[address] [address]PEEPyef-Rr UF Heparinon 89-66-2984Wmwf-Xa UF Heparin<0.04Low0.30-0.70The [facility] Physician [facility] Comment on above:Result Comment: Use the aPTT protocol when triglycerides are > 800 mg/dL, total bilirubin is > 20 mg/dL and/or patient has received a DOAC, Fondaparinux or LMWH within 72 hours AND baseline anti-Xa level is > 0.7 units/mLPERFORMED BY:[address] [place], [place] [phone] MEDICAL DIRECTORCELESTE GERMAN M.D.Performed By: #### UFHEP ####[address] [address] USAAnti-Xa UF Heparin0.05Low0.30-0.70The [facility] Physician [facility] HospitalComment on above:Result Comment: Use the aPTT protocol when triglycerides are > 800 mg/dL, total bilirubin is > 20 mg/dL and/or patient has received a DOAC, Fondaparinux or LMWH within 72 hours AND baseline anti-Xa level is > 0.7 units/mLPERFORMED BY:[address] [place], [place] [phone] MEDICAL ELÍAS GERMAN M.D.Performed By: #### PTT, SCAN CBC, UFHEP, PT, CUBLD, BNP, MG, LACTIC, BMP, HEPATIC ####[address] [address] [facility] Arterial Blood Gason 50-58-2598PFC Base Excess-2.7 mmol/LNormal-3.0-3.0The [facility] Physician [facility] HospitalComment on above:Performed By: #### ABG ####Point of Care testing,ABG Frac Inspired O250 %NormalThe [facility] Physician GroupComment on above:Performed By: #### ABG ####Point of Care testing,ABG Oxygen Content8.2 mmol/LNormal6.6-9.7The [facility] Physician GroupComment on above:Performed By: #### ABG ####Point of Care testing,ABG Oxygen Cholyspamv60.9 %Low95.0-100.0The [facility] Physician GroupComment on above:Performed By: #### ABG ####Point of Care testing,ABG WTM372.3 mm[Hg]Off scale high35.0-45.0The [facility] Physician GroupComment on above:Performed By: #### ABG ####Point of Care testing,ABG PEEP5 NormalThe [facility] Physician GroupComment on above:Performed By: #### ABG ####Point of Care testing,ABG PH7.28Low7.35-7.45The [facility] Comment on above:Performed By: #### ABG ####Point of Care testing,ABG PO272.1 mm[Hg]Low80.0-100.0The [facility] Physician GroupComment on above:Performed By: #### ABG ####Point of Care testing,ABG TV500 mLNormalThe [facility] Physician GroupComment on above:Performed By: #### ABG ####Point of Care testing,CO2 [Moles/Vol]26.5 mmol/SUviefb61.0-27.0The [facility] Physician GroupComment on above:Performed By: #### ABG ####Point of Care testing,HCO3 (Bld) [Moles/Vol] 24.8 mmol/FBcahtc48.0-29.0The [facility] Physician GroupComment on above: Performed By: #### ABG ####Point of Care testing,Respiratory CriticalNormalThe [facility] Physician GroupComment on above:Result Comment: Critical Value called on: 07/31/2025 at 21:22PERFORMED BY:[address] [place], [place] [phone] MEDICAL DIRECTORCELESTE GERMAN M.D.Performed By: #### ABG ####Point of Care testing,Set Respiratory Rate16 NormalThe [facility] Physician GroupComment on above:Performed By: #### ABG ####Point of Care testing,VBG Draw SiteRight RadialMorton Plant Hospital Physician GroupComment on above:Performed By: #### ABG ####Point of Care testing, Ventilator ModeACMorton Plant Hospital Physician GroupComment on above:Performed By: #### ABG ####Point of Care testing,B-Type Natriuretic Peptideon 07-31-2025 Natriuretic peptide B (Bld) [Mass/Vol]695.0 pg/mLHigh5-100The [facility] Physician GroupComment on above:Result Comment: PERFORMED BY:[address] [place], [place] [phone] MEDICAL ELÍAS GERMAN M.D.Performed By: #### PTT, SCAN CBC, UFHEP, PT, CUBLD, BNP, MG, LACTIC, BMP, HEPATIC ####[address] [address] USABasic Metabolic Panelon 79-58-8404Ydnqz gap [Moles/Vol]12.2 mmol/LNormal6.0-15.0The [facility] Physician GroupComment on above:Performed By: #### PTT, SCAN CBC, UFHEP, PT, CUBLD, BNP, MG, LACTIC, BMP, HEPATIC ####[address] [address] USACalcium [Mass/Vol]8.4 mg/dLLow8.6-10.3The [facility] Physician GroupComment on above:Performed By: #### PTT, SCAN CBC, UFHEP, PT, CUBLD, BNP, MG, LACTIC, BMP, HEPATIC ####[address] USAChloride [Moles/Vol]93 mmol/RXwn98-147Mpz [facility] Physician GroupComment on above:Performed By: #### PTT, SCAN CBC, UFHEP, PT, CUBLD, BNP, MG, LACTIC, BMP, HEPATIC ####[address] [place] [address] USACO2 [Moles/Vol]31.2 mmol/LHigh21.0-31.0The [facility] Physician GroupComment on above:Performed By: #### PTT, SCAN CBC, UFHEP, PT, CUBLD, BNP, MG, LACTIC, BMP, HEPATIC ####[place] [address] USACreatinine [Mass/Vol]3.19 mg/dLHigh0.70-1.30The [facility] Physician GroupComment on above:Performed By: #### PTT, SCAN CBC, UFHEP, PT, CUBLD, BNP, MG, LACTIC, BMP, HEPATIC ####[place] [address] USACreatinine Clr Calc Zgbnztym23.17NormalThe [facility] Physician GroupComment on above:Performed By: #### PTT, SCAN CBC, UFHEP, PT, CUBLD, BNP, MG, LACTIC, BMP, HEPATIC ####[place] [address] USAGFR/1.73 sq M.predicted MDRD (S/P/Bld) [Vol rate/Area]20.633 mL/min/{1.73_m2}NormalThe [facility] Physician [facility] HospitalComment on above:Performed By: #### PTT, SCAN CBC, UFHEP, PT, CUBLD, BNP, MG, LACTIC, BMP, HEPATIC ####[place] [address] USAGlucose [Mass/Vol]107 mg/xOMgke47-807Tvh [facility] Physician GroupComment on above:Result Comment: Random Glucose Reference Range is dependent on time and content of last meal. Glucose of more than 200 mg/dL in a nonstressed, ambulatory subject supports the diagnosis of Diabetes Mellitus. ADA recommended reference rangePerformed By: #### PTT, SCAN CBC, UFHEP, PT, CUBLD, BNP, MG, LACTIC, BMP, HEPATIC ####[place] [address] USAPotassium [Moles/Vol]4.4 mmol/LNormal3.5-5.1The [facility] Physician GroupComment on above:Performed By: #### PTT, SCAN CBC, UFHEP, PT, CUBLD, BNP, MG, LACTIC, BMP, HEPATIC ####[address] [address] USASodium [Moles/Vol]132 mmol/GSdm676-750 The [facility] Physician GroupComment on above:Performed By: #### PTT, SCAN CBC, UFHEP, PT, CUBLD, BNP, MG, LACTIC, BMP, HEPATIC ####[address] [address] USAUrea nitrogen [Mass/Vol]79 mg/dLHigh 7-e [facility] Physician GroupComment on above:Performed By: #### PTT, SCAN CBC, UFHEP, PT, CUBLD, BNP, MG, LACTIC, BMP, HEPATIC ####[address] [address] USABlood Cultureon 07-31-2025 Bacteria identified Cx Nom (Bld)NO GROWTH 5 DAYS PERFORMED BY: [place] [address] PATHOLOGIST DRYWALL INSTALLER CELESTE GERMAN M.D.NormalThe [facility] Physician GroupComment on above: Performed By: #### PTT, SCAN CBC, UFHEP, PT, CUBLD, BNP, MG, LACTIC, BMP, HEPATIC ####[address] [address] USABacteria identified Cx Nom (Bld)NO GROWTH 5 DAYS PERFORMED BY: [place] [address] PATHOLOGIST DRYWALL INSTALLER CELESTE GERAMN M.D.NormalOrlando Health [facility] Physician GroupComment on above: Performed By: #### PTT, SCAN CBC, UFHEP, PT, CUBLD, BNP, MG, LACTIC, BMP, HEPATIC ####[address] USACreatine Kinaseon 93-14-5979WD [Catalytic activity/Vol]151 U/RUudpzz09-489Ale [facility] Physician GroupComment on above:Performed By: #### CK, HS TROP ####[address] [address] [place] Dipstick and Microscopicon 75-31-9659Ctzfucdavo (U)CloudyCritically abnormal ClearThe [facility] Physician GroupComment on above:Order Comment: Name Collection Type:: Ramirez CatheterPerformed By: #### ADDONUAPLUS ####[address] [address] USABacteria,UrineRare NormalNone SeenThe [facility] Physician GroupComment on above:Order Comment: Name Collection Type:: Ramirez CatheterPerformed By: #### ADDONUAPLUS ####[address] [address] USABilirubin,Urine NegativeNormalNegativeThe [facility] Physician GroupComment on above:Order Comment: Name Collection Type:: Ramirez CatheterPerformed By: #### ADDONUAPLUS ####[address] [address] USAColor (U)YellowNormalYellowThe [facility] Physician GroupComment on above:Order Comment: Name Collection Type:: Ramirez CatheterPerformed By: #### ADDONUAPLUS ####[address] [address] USAGlucose Ql (U)NormalNormalNormalThe [facility] Physician GroupComment on above:Order Comment: Name Collection Type:: Ramirez CatheterPerformed By: #### ADDONUAPLUS ####[address] [address] [place] Granular Casts, Urine5-9NormalNone SeenThe [facility] Physician GroupComment on above:Order Comment: Name Collection Type:: Ramirez CatheterPerformed By: #### ADDONUAPLUS ####[address] [address] USAHyaline Casts,Zurvm3-36Yfctqa6-0Rjm [facility] Physician GroupComment on above:Order Comment: Name Collection Type:: Ramirez CatheterPerformed By: #### ADDONUAPLUS ####[address] [place] [address] USAKetones Ql (U)NegativeNormalNegativeThe [facility] Comment on above:Order Comment: Name Collection Type:: Ramirez CatheterPerformed By: #### ADDONUAPLUS ####[address] [address] USALeukocyte esterase Test strip Ql (U)NegativeNormal NegativeThe [facility] Physician GroupComment on above:Order Comment: Name Collection Type:: Ramirez CatheterPerformed By: #### ADDONUAPLUS ####[address] [address] USAMucus,UrineRareNormal The [facility] Physician GroupComment on above:Order Comment: Name Collection Type:: Ramirez CatheterResult Comment: PERFORMED BY:[address] [place], [place] [phone] MEDICAL ELÍAS GERMAN M.D.Performed By: #### ADDONUAPLUS ####[address] [address] USANitrite,UrineNegative NormalNegativeThe [facility] Physician GroupComment on above:Order Comment: Name Collection Type:: Ramirez CatheterPerformed By: #### ADDONUAPLUS ####[address] [address] USAOccult Blood,Urine2+ NormalNegativeThe [facility] Physician GroupComment on above:Order Comment: Name Collection Type:: Ramirez CatheterResult Comment: PERFORMED BY:[address] [place], [place] [phone] MEDICAL ELÍAS GERMAN M.D.Performed By: #### ADDONUAPLUS ####[address] [address] USApH (U)5.5 [pH]Normal 5.0-9.0The [facility] Physician GroupComment on above:Order Comment: Name Collection Type:: Ramirez CatheterPerformed By: #### ADDONUAPLUS ####[address] [address] USAProtein (U) [Mass/Vol]50 mg/dLNormalNegativeThe [facility] Physician GroupComment on above: Order Comment: Name Collection Type:: Ramirez CatheterPerformed By: #### ADDONUAPLUS ####[address] [address] USARBC,Mancv62-10Xrypqw1-2Ixz [facility] Physician GroupComment on above: Order Comment: Name Collection Type:: Ramirez CatheterPerformed By: #### ADDONUAPLUS ####[address] [address] USASpecificy Lowry,Urine1.718Ldkqef6.001-1.030The [facility] Physician GroupComment on above:Order Comment: Name Collection Type:: Ramirez Catheter Performed By: #### ADDONUAPLUS ####[address] [address] USASquamous Epithelial Cell,Vrhbf8-3Hcqbgd4-4Pnz [facility] Physician GroupComment on above:Order Comment: Name Collection Type:: Ramirez CatheterPerformed By: #### ADDONUAPLUS ####[address] [address] USAUrobilinogen,UrineNormalNormalNormal [facility] Physician GroupComment on above:Order Comment: Name Collection Type:: Ramirez CatheterPerformed By: #### ADDONUAPLUS ####[address] [address] USAWBC,Jffsb5-8Tvngai0-2Jzm [facility] Physician GroupComment on above:Order Comment: Name Collection Type:: Ramirez CatheterPerformed By: #### ADDONUAPLUS ####[address] [address] USADrug Screen,Urineon 07-31-2025 Amphetamine Screen,UrinePositiveNormalNegativeThe [facility] Comment on above:Performed By: #### URDS ####[address] [address] USABarbiturate Screen,UrineNegativeNormalNegative The [facility] Physician GroupComment on above:Performed By: #### URDS ####[address] [address] [place] Benzodiazepines Screen,UrinePositiveNormalNegativeThe [facility] Comment on above:Performed By: #### URDS ####[address] USACannabinoid Screen,UrineNegativeNormalNegative The [facility] Physician GroupComment on above:Result Comment: These are unconfirmed results and should not be used for legal purposes. Drug Cut-Off Concentration: AMPH 1000 ng/mL BHASKAR 200 ng/mL RIKKI 200 ng/mL COCM 300 ng/mL OP 300 ng/mL PCP 25 ng/mL THC 20 ng/mLPERFORMED BY:[address] [place], [place] [phone] MEDICAL DIRECTORCELESTE GERMAN M.D.Performed By: #### URDS ####[address] USACocaine Screen,UrineNegative NormalNegativeThe [facility] Physician [facility] HospitalComment on above:Performed By: #### URDS ####[address] [place] Opiate Screen,UrineNegativeNormalNegativeThe [facility] Physician GroupComment on above:Performed By: #### URDS ####[address] USAPhencyclidine Screen,UrineNegativeNormalNegativeThe [facility] Physician GroupComment on above:Performed By: #### URDS ####[address] USAFree T4 (Free Thyroxine)on 15-67-4671Tumz T4 [Mass/Vol]0.40 ng/dLLow0.61-1.12The [facility] Physician GroupComment on above:Performed By: #### TSH3, T4F, T4T ####[address] USAHepatic Panelon 06-67-6125Zizskpm [Mass/Vol]3.7 g/dLNormal3.5-5.7The [facility] Physician [facility] Comment on above:Performed By: #### PTT, SCAN CBC, UFHEP, PT, CUBLD, BNP, MG, LACTIC, BMP, HEPATIC ####[address] USAAlbumin/Globulin [Mass ratio]1.4 {ratio}NormalThe [facility] Physician GroupComment on above:Performed By: #### PTT, SCAN CBC, UFHEP, PT, CUBLD, BNP, MG, LACTIC, BMP, HEPATIC ####[address] USAALP [Catalytic activity/Vol]74 U/L Vyuzoq75-127Ecx [facility] Physician [facility] HospitalComment on above:Performed By: #### PTT, SCAN CBC, UFHEP, PT, CUBLD, BNP, MG, LACTIC, BMP, HEPATIC ####[address] USAALT [Catalytic activity/Vol]16 U/LNormal7-52The [facility] Physician [facility] HospitalComment on above: Performed By: #### PTT, SCAN CBC, UFHEP, PT, CUBLD, BNP, MG, LACTIC, BMP, HEPATIC ####[address] USAAST [Catalytic activity/Vol]26 U/UQchotw26-22Jsb [facility] Physician [facility] Comment on above:Performed By: #### PTT, SCAN CBC, UFHEP, PT, CUBLD, BNP, MG, LACTIC, BMP, HEPATIC ####[address] USABilirubin [Mass/Vol]1.1 mg/dLHigh0.3-1.0The [facility] Physician GroupComment on above:Performed By: #### PTT, SCAN CBC, UFHEP, PT, CUBLD, BNP, MG, LACTIC, BMP, HEPATIC ####[address] USABilirubin,Indirect0.8 mg/dLNormalThe [facility] Physician GroupComment on above:Performed By: #### PTT, SCAN CBC, UFHEP, PT, CUBLD, BNP, MG, LACTIC, BMP, HEPATIC ####[address] USABilirubin.indirect [Mass/Vol]0.30 mg/dLHigh0.03-0.18The [facility] Physician GroupComment on above:Performed By: #### PTT, SCAN CBC, UFHEP, PT, CUBLD, BNP, MG, LACTIC, BMP, HEPATIC ####[address] [place] Globulin (S) [Mass/Vol]2.7 g/dLNormalThe [facility] Physician GroupComment on above:Performed By: #### PTT, SCAN CBC, UFHEP, PT, CUBLD, BNP, MG, LACTIC, BMP, HEPATIC ####[place] [address] USAProtein [Mass/Vol]6.4 g/dLNormal6.4-8.9The [facility] Physician GroupComment on above:Performed By: #### PTT, SCAN CBC, UFHEP, PT, CUBLD, BNP, MG, LACTIC, BMP, HEPATIC ####[address] USALactic Acidon 15-87-0620Ctfqaah [Moles/Vol]2.3 mmol/LOff scale high 0.5-1.9The [facility] Physician [facility] HospitalComment on above:Result Comment: Critical Result : Called to and read back by: IDANIA OCHOA at: 07/31/2025 21:24:20 by:LFM Lactic Acid reference range has been updated to 0.5 ? 1.9 mmol/L and the critical range of 2.0 orgreater.PERFORMED BY:[address] [place], [place] [phone] MEDICAL ELÍAS GERMAN M.D.Performed By: #### PTT, SCAN CBC, UFHEP, PT, CUBLD, BNP, MG, LACTIC, BMP, HEPATIC ####[place] [address] USALevetiracetam (Keppra)on 81-13-6538bnqVUHZFrrtfg [Mass/Vol]9.2 ug/eNIjzlcl95.0-40.0The [facility] Physician GroupComment on above: Result Comment: Performed at: [facility] [id number] LabDirector: Gareth Alford MD, Phone: [phone] BY:[address] [place]UE[place]QUE[place], [place] [phone] MEDICAL ELÍAS GERMAN M.D.Performed By: #### LEV ####[facility] ,Magnesiumon 02-49-0858Khxgqguqj [Mass/Vol]2.3 mg/dLNormal1.9-2.7The [facility] Physician GroupComment on above: Result Comment: PERFORMED BY:[address] [place], [place] [phone] MEDICAL ELÍAS GERMAN M.D.Performed By: #### PTT, SCAN CBC, UFHEP, PT, CUBLD, BNP, MG, LACTIC, BMP, HEPATIC ####[address] [place] [address] USAPartial Thromboplastin Timeon 16-24-5688sJFE Coag (Bld) [Time]30.6 sNormal 25.1-36.5The [facility] Physician GroupComment on above:Result Comment: A hematocrit value greater than 55% may lead to inaccurate results in coagulation testing. Patients having hematocrit values >55% require a special collection tube for coagulation studies. Please contact the laboratory at [phone] for redraw instructions.Performed By: #### PTT, SCAN CBC, UFHEP, PT, CUBLD, BNP, MG, LACTIC, BMP, HEPATIC ####[address] [address] USAProthrombin Time INRon 84-89-8385MPC Coag (PPP) [Relative time]0.9 {INR}NormalThe [facility] Physician GroupComment on above: Result Comment: [...] PT, CUBLD, BNP, MG, LACTIC, BMP, HEPATIC ####[place] [address] [place] [id number] USAPT Coag (PPP) [Time]10.6 sNormal9.0-12.9The [facility] Physician GroupComment on above:Result Comment: A hematocrit value greater than 55% may lead to inaccurate results in coagulation testing. Patients having hematocrit values >55% require a special collection tube for coagulation studies. Please contact the laboratory at [phone] for redraw instructions. Performed By: #### PTT, SCAN CBC, UFHEP, PT, CUBLD, BNP, MG, LACTIC, BMP, HEPATIC ####[address] [address] USAScan and CBCon 53-98-1433Dswqamfgbnno Ql (Bld)SlightNormalThe [facility] Physician GroupComment on above:Performed By: #### PTT, SCAN CBC, UFHEP, PT, CUBLD, BNP, MG, LACTIC, BMP, HEPATIC ####[address] [address] USABasophils (Bld) [#/Vol]0.0 10*3/uLNormal 0.0-0.2The [facility] HospitalComment on above:Performed By: #### PTT, SCAN CBC, UFHEP, PT, CUBLD, BNP, MG, LACTIC, BMP, HEPATIC ####[address] [address] USABasophils/100 WBC (Bld)0.2 % Normal.The [facility] Physician GroupComment on above:Performed By: #### PTT, SCAN CBC, UFHEP, PT, CUBLD, BNP, MG, LACTIC, BMP, HEPATIC ####[place] [address] USAEosinophils (Bld) [#/Vol]0.0 10*3/uLNormal0.0-0.45The [facility] Physician GroupComment on above:Performed By: #### PTT, SCAN CBC, UFHEP, PT, CUBLD, BNP, MG, LACTIC, BMP, HEPATIC ####[place] [address] [place] Eosinophils/100 WBC (Bld)0.1 %Normal.The [facility] Physician GroupComment on above:Performed By: #### PTT, SCAN CBC, UFHEP, PT, CUBLD, BNP, MG, LACTIC, BMP, HEPATIC ####[place] [address] USAErythrocyte distribution width (RBC) [Ratio]15.6 %High12.0-14.8The [facility] Physician GroupComment on above:Performed By: #### PTT, SCAN CBC, UFHEP, PT, CUBLD, BNP, MG, LACTIC, BMP, HEPATIC ####[place] [address] USAHematocrit (Bld) [Volume fraction]43.4 %Normal 38.8-50.0The [facility] Physician GroupComment on above:Performed By: #### PTT, SCAN CBC, UFHEP, PT, CUBLD, BNP, MG, LACTIC, BMP, HEPATIC ####[place] [address] USAHemoglobin (Bld) [Mass/Vol] 14.1 g/gVQzhxof27.0-17.0The [facility] Physician GroupComment on above:Performed By: #### PTT, SCAN CBC, UFHEP, PT, CUBLD, BNP, MG, LACTIC, BMP, HEPATIC ####[place] [address] [place] Lymphocytes (Bld) [#/Vol]0.3 10*3/uLLow1.00-4.8The [facility] Comment on above:Performed By: #### PTT, SCAN CBC, UFHEP, PT, CUBLD, BNP, MG, LACTIC, BMP, HEPATIC ####[address] StreetLymphocytes/100 WBC (Bld)8.0 %Normal.The [facility] Physician GroupComment on above:Performed By: #### PTT, SCAN CBC, UFHEP, PT, CUBLD, BNP, MG, LACTIC, BMP, HEPATIC ####[address] (RBC) [Entitic mass]30.7 eaIrnkgp22.5-35.2 The [facility] Physician GroupComment on above:Performed By: #### PTT, SCAN CBC, UFHEP, PT, CUBLD, BNP, MG, LACTIC, BMP, HEPATIC ####[address] (RBC) [Entitic vol]94.3 fLNormal 83.5-101The [facility] Hospital Physician GroupComment on above:Performed By: #### PTT, SCAN CBC, UFHEP, PT, CUBLD, BNP, MG, LACTIC, BMP, HEPATIC ####[address] Corpuscular HGB Conc32.5 g/fCEvwrzz20.5-35.6The [facility] Physician GroupComment on above:Performed By: #### PTT, SCAN CBC, UFHEP, PT, CUBLD, BNP, MG, LACTIC, BMP, HEPATIC ####[address] MicrocytosisSlightNormalThe [facility] Physician GroupComment on above:Performed By: #### PTT, SCAN CBC, UFHEP, PT, CUBLD, BNP, MG, LACTIC, BMP, HEPATIC ####[address] Monocytes (Bld) [#/Vol]0.3 10*3/uLNormal0.0-0.8[facility] Comment on above:Performed By: #### PTT, SCAN CBC, UFHEP, PT, CUBLD, BNP, MG, LACTIC, BMP, HEPATIC ####[place] [address] USAMonocytes/100 WBC (Bld)7.4 %Normal.The [facility] Physician GroupComment on above:Performed By: #### PTT, SCAN CBC, UFHEP, PT, CUBLD, BNP, MG, LACTIC, BMP, HEPATIC ####[place] [address] USANeutrophils (Bld) [#/Vol]3.5 10*3/uLNormal 1.8-7.7The [facility] Physician GroupComment on above:Performed By: #### PTT, SCAN CBC, UFHEP, PT, CUBLD, BNP, MG, LACTIC, BMP, HEPATIC ####[place] [address] USANeutrophils/100 WBC (Bld)84.3 %Normal.The [facility] Physician GroupComment on above:Performed By: #### PTT, SCAN CBC, UFHEP, PT, CUBLD, BNP, MG, LACTIC, BMP, HEPATIC ####[place] [address] USANRBC%0.6 /100{WBC}High0-0.5 The [facility] Physician GroupComment on above:Performed By: #### PTT, SCAN CBC, UFHEP, PT, CUBLD, BNP, MG, LACTIC, BMP, HEPATIC ####[place] [address] USAPlatelet EstimateNormalNormalNormalThe [facility] Physician GroupComment on above:Performed By: #### PTT, SCAN CBC, UFHEP, PT, CUBLD, BNP, MG, LACTIC, BMP, HEPATIC ####[place] [address] USAPlatelet mean volume (Bld) [Entitic vol]7.6 fLNormal6.6-10.1The [facility] Physician GroupComment on above:Performed By: #### PTT, SCAN CBC, UFHEP, PT, CUBLD, BNP, MG, LACTIC, BMP, HEPATIC ####[address] [address] [place] Platelet MorphologyNormalNormalMorton Plant Hospital Physician GroupComment on above:Result Comment: PERFORMED BY:[address] [place], [place] [phone] MEDICAL ELÍAS GERMAN M.D.Performed By: #### PTT, SCAN CBC, UFHEP, PT, CUBLD, BNP, MG, LACTIC, BMP, HEPATIC ####[address] [address] USAPlatelets (Bld) [#/Vol]210 10*3/jPRawnfp314-108Zis [facility] Comment on above:Performed By: #### PTT, SCAN CBC, UFHEP, PT, CUBLD, BNP, MG, LACTIC, BMP, HEPATIC ####[place] [id number] USAPolychromasiaSlightMorton Plant Hospital Physician GroupComment on above:Performed By: #### PTT, SCAN CBC, UFHEP, PT, CUBLD, BNP, MG, LACTIC, BMP, HEPATIC ####[place] [id number] USARBC (Bld) [#/Vol]4.60 10*6/uLNormal3.90-5.60The [facility] Physician GroupComment on above:Performed By: #### PTT, SCAN CBC, UFHEP, PT, CUBLD, BNP, MG, LACTIC, BMP, HEPATIC ####[place] [address] USAWBC (Bld) [#/Vol]4.2 10*3/uLNormal 4.1-10.5The [facility] Physician GroupComment on above:Performed By: #### PTT, SCAN CBC, UFHEP, PT, CUBLD, BNP, MG, LACTIC, BMP, HEPATIC ####[place] [address] USAWhite Blood Count4.2 [CFU]/mL Normal4.1-10.5The [facility] Physician GroupComment on above:Performed By: #### PTT, SCAN CBC, UFHEP, PT, CUBLD, BNP, MG, LACTIC, BMP, HEPATIC ####[place] [address] [place] [address] USAThyroid Stimulating Hormoneon 02-21-8866YCD Qn30.17 m[IU]/LHigh0.45-5.33The [facility] Physician GroupComment on above:Result Comment: PERFORMED BY:[place] [address] [address] LIZARRAGASHARQUE[place], [place] [phone] MEDICAL ELÍAS GERMAN M.D.Performed By: #### TSH3, T4F, T4T ####[place] [address] [facility] [place] [address] USAThyroxine (T4) Total on 22-13-9544D0 [Mass/Vol]1.43 ug/dLLow5.39-11.82The [facility] Comment on above:Performed By: #### TSH3, T4F, T4T ####[place] [address] [place] [address] USAToxassure, Urineon 07-31-2025 Toxassure, Urine SummaryFINALNormal.The [facility] Physician GroupComment on above:Result Comment: TOXASSURE [...] clinical consultation, please call . Performed at: [employer] [address] [id number] Procurement Representative: Lesia Balderas, Phone: [phone] BY:[place] [address] [address] DOMINGUEZQUEEN [place], [place] [phone] MEDICAL DIRECTORCELESTE GERMAN M.D.Performed By: #### TOXASSURE ####[facility] ,Troponin I High Sensitivityon 90-14-2985Toukahtc I High Lzmcixqxahc1205Nax scale [facility] Physician [facility] HospitalComment on above: Result Comment: Critical Result : Called to and read back by: IDANIA OCHOA at: 07/31/2025 21:39:42 by:[facility] The Troponin units of report have been changed to meet the Chest Pain Accreditation requirement, element EC5.M1l2. Troponin units are changed from pg/ml to ng/L. Also, the decimal is removed and results are in whole numbers.PERFORMED BY:[phone] MEDICAL DIRECTORCELESTE GERMAN M.D.Performed By: #### CK, HS TROP ####[address] [address] USAUrine Cultureon 93-06-4382Fznkfjjl identified Cx Nom (U)No Growth 2 Days PERFORMED BY: [place] [address] PATHOLOGIST DRYWALL INSTALLER CELESTE GERMAN M.D.NormalMarion General HospitalComment on above: Performed By: #### CUU ####[place] [id number] USABacteria identified Cx Nom (U)Urine Culture Results No Growth 2 Days PERFORMED BY: [place] [id number] PATHOLOGIST DRYWALL INSTALLER CELESTE GERMAN M.D.[facility] Medical CenterComment on above: Performed By: #### CUU ####[address] [address] USAUrine cultureOrdered By: Salty Luis on 07-31-2025 Bacteria identified Cx Nom (U)[facility] CenterXR chest 1V portableon 54-87-3608QI chest 1V [facility] centerNoUNC [facility] Physician [facility] Arterial Blood Gason 41-46-9303ZSR Base Excess0.2 mmol/LNormal-3.0-3.0The [facility] Physician GroupComment on above:Performed By: #### ABG ####Point of Care testing,ABG Frac Inspired L9FterlmIyv [facility] Physician GroupComment on above:Performed By: #### ABG ####Point of Care testing,ABG Liter Cpwl9LKoyxthWff [facility] Physician GroupComment on above:Performed By: #### ABG ####Point of Care testing,ABG Oxygen Content9.8 mmol/LHigh6.6-9.7The [facility] Physician GroupComment on above:Performed By: #### ABG ####Point of Care testing,ABG Oxygen Qhehggcbur10.5 %Vlwvbo06.0-100.0The [facility] Physician GroupComment on above:Performed By: #### ABG ####Point of Care testing,ABG BJF588.3 mm[Hg]Normal 35.0-45.0The [facility] Physician GroupComment on above:Performed By: #### ABG ####Point of Care testing,ABG PH7.20Dhfkyq7.35-7.45The [facility] Comment on above:Performed By: #### ABG ####Point of Care testing,ABG PO287.8 mm[Hg]Wrkkzf48.0-100.0The [facility] Physician GroupComment on above:Performed By: #### ABG ####Point of Care testing,CO2 [Moles/Vol]26.3 mmol/GKphdzz62.0-27.0 The [facility] Physician GroupComment on above:Performed By: #### ABG ####Point of Care testing,HCO3 (Bld) [Moles/Vol]25.0 mmol/ZEkvupf94.0-29.0The [facility] Physician GroupComment on above:Performed By: #### ABG ####Point of Care testing,Oxygen DeviceNasal CannulaNormAdventHealth North Pinellas Physician GroupComment on above:Performed By: #### ABG ####Point of Care testing,Respiratory Critical NormalThe [facility] Physician GroupComment on above:Result Comment: Critical Value called on: 06/07/2025 at 13:57PERFORMED BY:[address] [address] [place], [place] [phone] MEDICAL DIRECTORCELESTE GERMAN M.D.Performed By: #### ABG ####Point of Care testing, VBG Draw SiteRigMease [facility] Physician GroupComment on above: Performed By: #### ABG ####Point of Care testing,Complete Blood Count Auto Diff on 64-43-4449Hsziggpgz (Bld) [#/Vol]0.0 10*3/uLNormal0.0-0.2The [facility] Physician GroupComment on above:Result Comment: PERFORMED BY:[address] PAGEFREM[place], [place] [phone] MEDICAL DIRECTORCELESTE GERMAN M.D.Performed By: #### CMP, CBC ####[address] [address] USABasophils/100 WBC (Bld)0.4 % Normal.The [facility] Physician GroupComment on above:Performed By: #### CMP, CBC ####[address] [address] [place] Eosinophils (Bld) [#/Vol]0.0 10*3/uLNormal0.0-0.45The [facility] Comment on above:Performed By: #### CMP, CBC ####[address] [address] USAEosinophils/100 WBC (Bld)0.1 %Normal. The [facility] Physician GroupComment on above:Performed By: #### CMP, CBC ####[address] [address] [place] Erythrocyte distribution width (RBC) [Ratio]15.5 %High12.0-14.8The [facility] Physician GroupComment on above:Performed By: #### CMP, CBC ####[address] [address] USAHematocrit (Bld) [Volume fraction]46.4 %Qawyoc13.8-50.0The [facility] Physician GroupComment on above:Performed By: #### CMP, CBC ####[place] [address] USAHemoglobin (Bld) [Mass/Vol]15.2 g/sMJqggdi43.0-17.0 The [facility] Physician GroupComment on above:Performed By: #### CMP, CBC ####[place] [address] [place] Lymphocytes (Bld) [#/Vol]0.5 10*3/uLLow1.00-4.8The [facility] Comment on above:Performed By: #### CMP, CBC ####[place] [address] USALymphocytes/100 WBC (Bld)7.4 %Normal. The [facility] Physician GroupComment on above:Performed By: #### CMP, CBC ####[address] StreetMCH (RBC) [Entitic mass]29.6 plSxpyto28.5-35.2The [facility] Physician GroupComment on above:Performed By: #### CMP, CBC ####[place] [address] USAMCV (RBC) [Entitic vol]90.3 oTCnglhd92.5-101 The [facility] Physician GroupComment on above:Performed By: #### CMP, CBC ####[place] [address] USAMean Corpuscular HGB Conc32.7 g/tRWiierv27.5-35.6The [facility] Physician GroupComment on above:Performed By: #### CMP, CBC ####[place] [address] USAMonocytes (Bld) [#/Vol]0.2 10*3/uLNormal 0.0-0.8The [facility] Physician GroupComment on above:Performed By: #### CMP, CBC ####[place] [address] [place] Monocytes/100 WBC (Bld)3.3 %Normal.The [facility] Physician GroupComment on above:Performed By: #### CMP, CBC ####[place] [address] USANeutrophils (Bld) [#/Vol]5.8 10*3/uLNormal1.8-7.7The [facility] Physician GroupComment on above:Performed By: #### CMP, CBC ####[place] [address] [place] Neutrophils/100 WBC (Bld)88.8 %Normal.The [facility] Physician GroupComment on above:Performed By: #### CMP, CBC ####[place] [address] USANRBC%0.1 /100{WBC}Normal0-0.5The [facility] Physician GroupComment on above:Performed By: #### CMP, CBC ####[place] [address] USAPlatelet mean volume (Bld) [Entitic vol]6.7 fLNormal6.6-10.1The [facility] Physician GroupComment on above: Performed By: #### CMP, CBC ####[place] [address] USAPlatelets (Bld) [#/Vol]225 10*3/xXIarjou776-945Ydp [facility] Physician GroupComment on above:Performed By: #### CMP, CBC ####[place] [address] USARBC (Bld) [#/Vol]5.14 10*6/uLNormal3.90-5.60The [facility] Physician GroupComment on above:Performed By: #### CMP, CBC ####[place] [address] USAWBC (Bld) [#/Vol]6.6 10*3/uLNormal4.1-10.5The [facility] Physician GroupComment on above:Performed By: #### CMP, CBC ####[address] [address] USAWhite Blood Count6.6 [CFU]/mLNormal4.1-10.5The [facility] Physician GroupComment on above:Performed By: #### CMP, CBC ####[address] [address] USAComprehensive Metabolic Panelon 44-41-1571Ommsiri [Mass/Vol]4.3 g/dLNormal3.5-5.7The [facility] Physician GroupComment on above: Performed By: #### CMP, CBC ####[address] [address] USAAlbumin/Globulin [Mass ratio]1.5 {ratio}NormalThe [facility] Physician GroupComment on above:Performed By: #### CMP, CBC ####[address] [address] USAALP [Catalytic activity/Vol]97 U/TWugkgo21-302Ymg [facility] Physician GroupComment on above:Performed By: #### CMP, CBC ####[address] [address] USAALT [Catalytic activity/Vol]22 U/LNormal7-52 The [facility] Physician GroupComment on above:Performed By: #### CMP, CBC ####[address] [address] USAAnion gap [Moles/Vol]9.2 mmol/LNormal6.0-15.0The [facility] Physician GroupComment on above:Performed By: #### CMP, CBC ####[address] [address] USAAST [Catalytic activity/Vol]57 U/CZldh42-50Liz [facility] Physician GroupComment on above:Performed By: #### CMP, CBC ####[address] [address] [place] Bilirubin [Mass/Vol]0.8 mg/dLNormal0.3-1.0The [facility] Physician GroupComment on above:Performed By: #### CMP, CBC ####[address] [address] USACalcium [Mass/Vol]9.3 mg/dLNormal8.6-10.3The [facility] Physician GroupComment on above:Performed By: #### CMP, CBC ####[address] [address] [place] Chloride [Moles/Vol]98 mmol/QLoaqif08-612Cok [facility] Physician GroupComment on above:Performed By: #### CMP, CBC ####[address] [address] USACO2 [Moles/Vol]30.8 mmol/YWdawto18.0-31.0The [facility] Physician GroupComment on above:Performed By: #### CMP, CBC ####[place] [address] [place] Creatinine [Mass/Vol]1.39 mg/dLHigh0.70-1.30The [facility] Physician GroupComment on above:Performed By: #### CMP, CBC ####[address] [address] USACreatinine Clr Calc Ajvfzjie18.68NoUNC Health [facility] Ridge - [facility]e Physician GroupComment on above:Result Comment: PERFORMED BY:[address] [place], [place] [phone] MEDICAL ELÍAS GERMAN M.D.Performed By: #### CMP, CBC ####[address] [address] USAGFR/1.73 sq M.predicted MDRD (S/P/Bld) [Vol rate/Area]55.911 mL/min/{1.73_m2}NormalThe [facility] Physician GroupComment on above:Performed By: #### CMP, CBC ####[address] [address] [place] Globulin (S) [Mass/Vol]2.9 g/dLMorton Plant Hospital Physician GroupComment on above:Performed By: #### CMP, CBC ####[address] [place] [address] USAGlucose [Mass/Vol]189 mg/vTObqr14-174Epk [facility] Physician GroupComment on above:Result Comment: Random Glucose Reference Range is dependent on time and content of last meal. Glucose of more than 200 mg/dL in a nonstressed, ambulatory subject supports the diagnosis of Diabetes Mellitus. ADA recommended reference rangePerformed By: #### CMP, CBC ####[place] [address] USAPotassium [Moles/Vol] 4.0 mmol/LNormal3.5-5.1The [facility] Physician GroupComment on above:Performed By: #### CMP, CBC ####[place] [address] USAProtein [Mass/Vol]7.2 g/dLNormal6.4-8.9The [facility] Comment on above:Performed By: #### CMP, CBC ####[place] [address] USASodium [Moles/Vol]134 mmol/HTrg492-637 The [facility] Physician GroupComment on above:Performed By: #### CMP, CBC ####[place] [address] USAUrea nitrogen [Mass/Vol]17 mg/dLNormal7-25The [facility] Physician GroupComment on above:Performed By: #### CMP, CBC ####[place] [address] USADrug Screen,Urineon 05-68-3304Aqopxpxlykk Screen,UrinePositiveNormalNegativeThe [facility] Physician GroupComment on above: Performed By: #### URDS ####[place] [address] USABarbiturate Screen,UrineNegativeNormalNegativeThe [facility] Physician GroupComment on above:Performed By: #### URDS ####[place] [address] USABenzodiazepines Screen,UrinePositiveNormalNegativeThe [facility] Physician GroupComment on above: Performed By: #### URDS ####[address] [address] USACannabinoid Screen,UrinePositiveNormalNegativeOrlando Health [facility] Center Physician GroupComment on above:Result Comment: These are unconfirmed results and should not be used for legal purposes. Drug Cut-Off Concentration: AMPH 1000 ng/mL BHASKAR 200 ng/mL RIKKI 200 ng/mL COCM 300 ng/mL OP 300 ng/mL PCP 25 ng/mL THC 20 ng/mLPERFORMED BY:[address] [address] [address] [place], [place] [phone] MEDICAL ELÍAS GERMAN M.D.Performed By: #### URDS ####[address] [address] USACocaine Screen,UrineNegativeNormalNegativeOrlando [facility] Physician GroupComment on above:Performed By: #### URDS ####[address] [address] USAOpiate Screen,Urine PositiveNormalNegativeThe [facility] Physician GroupComment on above:Performed By: #### URDS ####[address] [address] USAPhencyclidine Screen,UrineNegativeNormalNegativeOrlando [facility] Physician GroupComment on above:Performed By: #### URDS ####[address] [address] USAECG 12 lead ECGon 15-28-2676JWZ 12 lead ECGNoUNC Health [facility] Physician GroupECG 12 lead ECGNoUNC Health [facility] Physician [facility] HospitalGlucose Poct Glucometerson 11-54-8232Ptkvcwd6Pbg9: Cleaned Meter NormalOrlando Health [facility] Center Physician [facility] HospitalComment on above:Result Comment: PERFORMED BY:[address] [address] [address] [place], [place] [phone] MEDICAL ELÍAS GERMAN M.D.Performed By: #### GLULS ####Point of Care testing,Glucose [Mass/Vol]91 mg/dLNoUNC Health [facility]e Physician GroupComment on above:Result Comment: Random Glucose Reference Range is dependent on time and content of last meal. Glucose of more than 200 mg/dL in a nonstressed, ambulatory subject supports the diagnosis of Diabetes Mellitus. Performed By: #### GLULS ####Point of Care testing,Troponin I High Sensitivityon 19-46-0269Ufxckmsp I High Bsdifyrylcg82831Mpk scale [address] Physician GroupComment on above:Result Comment: Critical Result I_TnIHS_d:[id number] Called to and read back by: JANY SANDOVAL at: 06/07/2025 17:28:45 by:[id number] The Troponin units of report have been changed to meet the Chest Pain Accreditation requirement, element EC5.M1l2. Troponin units are changed from pg/ml to ng/L. Also, the decimal is removed and results are in whole numbers.PERFORMED BY:[address] [address] [place], [place] [phone] MEDICAL ELÍAS GERMAN M.D.Performed By: #### HS TROP ####[address] [address] USATroponin I High Qhzmiriopqn63576Tuo [address] Physician [facility] HospitalComment on above:Order Comment: per rn jemsa wait till they sedate ptResult Comment: Critical Result I_TnIHS_d:[id number] Called to and read back by: JANY SANDOVAL at: 06/07/2025 15:32:31 by:[id number] The Troponin units of report have been changed to meet the Chest Pain Accreditation requirement, element EC5.M1l2. Troponin units are changed from pg/ml to ng/L. Also, the deci mal is removed and results are in whole numbers.PERFORMED BY:[address]IG[address] [place]RE[place]VERET[place], [place] [phone] MEDICAL ELÍAS GERMAN M.D.Performed By: #### HS TROP ####[address] [address] USATroponin I High Sensitivity 6616Off scale [address] Physician GroupComment on above:Order Comment: rn [...] is removed andresults are in whole numbers.PERFORMED BY:[address] ANDREEJeremiWILKIN[place], [place] [phone] MEDICAL DIRECTORCELESTE GERMAN M.D.Performed By: #### HS TROP ####[address] [address] USABasic Metabolic Panelon 14-18-6130Efere gap [Moles/Vol]13.2 mmol/L Normal6.0-15.0The [facility] Physician GroupComment on above:Performed By: #### MG BMP, CBCNO ####[address] [address] USACalcium [Mass/Vol]9.7 mg/dLNormal8.6-10.3The [facility]ician [facility] Comment on above:Performed By: #### MG BMP, CBCNO ####[address] [address] USAChloride [Moles/Vol]105 mmol/L Hhnmcg91-521Mqr [facility] Physician GroupComment on above:Performed By: #### MG BMP, CBCNO ####[address] [address] USACO2 [Moles/Vol]25.2 mmol/EEsxssl77.0-31.0The [facility] Comment on above:Performed By: #### MG, BMP, CBCNO ####[address] [address] USACreatinine [Mass/Vol]0.81 mg/dLNormal0.70-1.30The [facility] Physician GroupComment on above:Performed By: #### MG, BMP, CBCNO ####[facility] [place] [address] USACreatinine Clr Calc Fuovoycf15.46NormalThSt. Luke's Boise [facility] Center Physician GroupComment on above:Performed By: #### LISA HAIR CBCNO ####[place] [address] [place] [address] USAGFR/1.73 sq M.predicted MDRD (S/P/Bld) [Vol rate/Area]mL/min/{1.73_m2}NormalThe [facility] Comment on above:Performed By: #### LISA HAIR CBCNO ####[place] [address] [place] [address] USAGlucose [Mass/Vol]103 mg/dL Ivhx22-733Ycv [facility] Physician GroupComment on above:Result Comment: Random Glucose Reference Range is dependent on time and content of last meal. Glucose of more than 200 mg/dL in a nonstressed, ambulatory subject supports the diagnosis of Diabetes Mellitus. ADA recommended reference rangePerformed By: #### LISA HAIR CBCNO ####[place] [address] [place] [address] USAPotassium [Moles/Vol]3.4 mmol/LLow3.5-5.1The [facility] Physician GroupComment on above:Performed By: #### LISA HAIR CBCNO ####[address] [address] USASodium [Moles/Vol]140 mmol/L Kkdsdv991-791Anc [facility] Physician GroupComment on above:Performed By: #### LISA HAIR CBCNO ####[place] [address] [place] [address] USAUrea nitrogen [Mass/Vol]19 mg/dLNormal7-25The [facility]ician [facility] Comment on above:Performed By: #### LISA HAIR CBCNO ####[address] [address] USACalcium [Mass/volume] in Serum or PlasmaOrdered By: Yamila Donald on 01-69-3252Dimqxby [Mass/Vol]Calcium [Mass/volume] in Serum or Plasma8.6-10.3FCleveland Clinic Mentor HospitalCarbon dioxide, total [Moles/volume] in Serum or PlasmaOrdered By: Yamila Donald on 66-88-4604FS7 [Moles/Vol]Carbon dioxide, total [Moles/volume] in Serum or Plasma 21.0-31.0[facility] Medical CenterChloride [Moles/volume] in Serum or PlasmaOrdered By: Yamila Donald on 25-43-4436Squewuzd [Moles/Vol]Chloride [Moles/volume] in Serum or Gyptoa47-949AwcdbowvzWright-Patterson Medical Center Creatinine [Mass/volume] in Serum or PlasmaOrdered By: Yamila Donald on 83-79-3870Ppjbaebwxb [Mass/Vol]Creatinine [Mass/volume] in Serum or Plasma 0.70-1.30[facility] Medical CenterErythrocyte distribution width Auto (RBC) [Ratio]Ordered By: Yamila Donald on 10-08-3032Fiikaqlmdef distribution width (RBC) [Ratio]Erythrocyte distribution width [Ratio] by Automated count 12.0-14.8[facility] Medical CenterGlucose [Mass/volume] in Serum or PlasmaOrdered By: Yamila Donald on 29-16-2494Wugqukb [Mass/Vol]Glucose [Mass/volume] in Serum or UriqlySfnc44-044FteifuxizWright-Patterson Medical Center Comment on above:ADA recommended reference rangeRandom Glucose Reference Range is dependent on time and content of last meal. Glucose of more than 200 mg/dL in a nonstressed, ambulatory subject supports the diagnosisof Diabetes Mellitus. Hematocrit Auto (Bld) [Volume fraction]Ordered By: Yamila Donald on 11-19-2024 Hematocrit (Bld) [Volume fraction]Hematocrit [Volume Fraction] of Blood by Automated count38.8-50.0[facility] Medical CenterHemoglobin [Mass/volume] in BloodOrdered By: Yamila Donald on 89-06-4795Ghayrczvcv (Bld) [Mass/Vol]Hemoglobin [Mass/volume] in Blood13.0-17.0[facility]terson Medical CenterHemogram CBC Without Diffon 59-79-5502Oiufrbjeoha distribution width (RBC) [Ratio]13.7 %Llkhsh92.0-14.8The [facility] Physician GroupComment on above: Performed By: #### MG, BMP, CBCNO ####[address] [address] USAHematocrit (Bld) [Volume fraction]45.8 %Normal 38.8-50.0The [facility] Physician GroupComment on above:Performed By: #### MG, BMP, CBCNO ####[place] [id number] USAHemoglobin (Bld) [Mass/Vol]15.4 g/jVMifffy20.0-17.0The [facility] Physician GroupComment on above:Performed By: #### MG, BMP, CBCNO ####[address] [address] [facility] [place] ([place]BC) [Entitic mass]29.0 xsSiajer66.5-35.2The [facility] Physician GroupComment on above:Performed By: #### MG, BMP, CBCNO ####[place] [address] [facility] [place] (RBC) [Entitic vol]86.4 qXPuhzem65.5-101The [facility] Physician GroupComment on above:Performed By: #### MG, BMP, CBCNO ####[place] [address] USAMean Corpuscular HGB Conc33.5 g/lCXquhie81.5-35.6The [facility] Physician GroupComment on above:Performed By: #### MG, BMP, CBCNO ####[place] [phone] USAPlatelet mean volume (Bld) [Entitic vol]7.9 fLNormal6.6-10.1The [facility] Physician GroupComment on above:Result Comment: PERFORMED BY:[address] [place], [place] [phone] MEDICAL DIRECTORVÍCTOR LUCERO M.D.Performed By: #### MG, BMP, CBCNO ####[place] [address] [place] [address] [place] Platelets (Bld) [#/Vol]203 10*3/eNOlrtoz304-817Iyr [facility] Group Comment on above:Performed By: #### MG, BMP, CBCNO ####[facility] [address] [place] [address] USARBC (Bld) [#/Vol]5.31 10*6/uL Normal3.90-5.60The [facility] Physician GroupComment on above:Performed By: #### MG, BMP, CBCNO ####[facility] [address] [place] [address] USAWBC (Bld) [#/Vol]8.2 10*3/uLNormal4.1-10.5The [facility] Comment on above:Performed By: #### MG, BMP, CBCNO ####[facility] [address]vj[address] [place] [address] USALeukocytes [#/volume] corrected for nucleated erythrocytes in Blood by Automated counOrdered By: Yamila Donald on 39-53-3295QDU corrected for nucl RBC Auto (Bld) [#/Vol] Leukocytes [#/volume] corrected for nucleated erythrocytes in Blood by Automated coun4.1-10.5FCleveland Clinic Children's Hospital for RehabilitationH Auto (RBC) [Entitic mass] Ordered By: Yamila Donald on 19-55-5877LDW (RBC) [Entitic mass]MCH [Entitic mass] by Automated count27.5-35.2FCleveland Clinic Mentor HospitalMCHC Auto (RBC) [Mass/Vol]Ordered By: Yamila Donald on 28-92-7452OAAA (RBC) [Mass/Vol] MCHC [Mass/volume] by Automated count32.5-35.6FC[facility] MCV Auto (RBC) [Entitic vol]Ordered By: Yamila Donald on 22-10-9653XHS (RBC) [Entitic vol]MCV [Entitic volume] by Automated count83.5-101[facility] Medical CenterMR head/brain wo conon 57-95-5821JO head/brain wo conNormalThe [facility] Physician GroupMagnesiumon 05-16-6320Cknkklqlo [Mass/Vol]1.7 mg/dLLow 1.9-2.7The [facility] Physician GroupComment on above:Result Comment: PERFORMED BY:[facility] [place], [place] [address], [place] [phone] MEDICAL DIRECTORVÍCTOR LUCERO M.D.Performed By: #### MG, BMP, CBCNO ####[facility] [place] [address] USAMagnesium [Mass/volume] in Serum or PlasmaOrdered By: Yamila Donald on 38-97-6628Tejmjhnli [Mass/Vol]Magnesium [Mass/volume] in Serum or PlasmaLow 1.9-2.7FCleveland Clinic Mentor HospitalMagnetic resonance imaging reportOrdered By: Regino Mckinley on 87-31-7651Ogsgt reportGALION HOSPITAL Main Arjay [address] [place] [address] MRI Report Signed Patient: Aaron Olivarez MR#: [id number] : 1960 Acct:[id number] Age/Sex: 64 / M ADM Date: 5 Loc: Room: [address] [place] [address] Type: ADM IN Attending Dr: Yamila Donald [...] Regino Mckinley M.D.11/19/2024 4:50 PM Dictation Location: [place] [address] Transcribed By: YNES 11/19/24 165 Dictated By: Regino Mckinley MD 11/19/24 164 Signed By: 11/19/24 165 [facility] Work Phone: no Panel InformationOrdered By: Yamila Donald on 46-40-3800Gljspkawh GFR (CKD-EPI)> 60.0 mL/MinWright-Patterson Medical Center Pharmacy Creatinine Clearance (Chem98.46[facility] Platelet mean volume Auto (Bld) [Entitic vol]Ordered By: Yamila Donald on 97-99-5535Kssnqtgc mean volume (Bld) [Entitic vol]Platelet mean volume [Entitic volume] in Blood by Automated count6.6-10.1FCleveland Clinic [facility] Hospital Platelets Auto (Bld) [#/Vol]Ordered By: Yamila Donald on 81-84-2350Nwismnyou (Bld) [#/Vol]Platelets [#/volume] in Blood by Automated ttyma515-193VpbybycynWright-Patterson Medical CenterPotassium [Moles/volume] in Serum or PlasmaOrdered By: Yamila Donald on 00-94-6518Xgilqmdpa [Moles/Vol]Potassium [Moles/volume] in Serum or PlasmaLow3.5-5.1FCleveland Clinic Mentor HospitalRBC Auto (Bld) [#/Vol] Ordered By: Yamila Donald on 18-24-5216JSG (Bld) [#/Vol]Erythrocytes [#/volume] in Blood by Automated count3.90-5.60Clinton Memorial Hospitalerum or plasma anion gap determinationOrdered By: Yamila Donald on 67-58-0401Wvgkq gap [Moles/Vol]Serum or plasma anion gap determination6.0-15.0Cl[facility] Memorial Hospitalodium [Moles/volume] in Serum or PlasmaOrdered By: Yamila Donald on 41-73-6562Mkiqvj [Moles/Vol]Sodium [Moles/volume] in Serum or Ayzpnb064-649 [facility] Medical CenterUrea nitrogen [Mass/volume] in Serum or Plasma Ordered By: Yamila Donald on 75-61-8401Dlwt nitrogen [Mass/Vol]Urea nitrogen [Mass/volume] in Serum or Plasma7-25W[facility] Medical CenterAlanine aminotransferase [Enzymatic activity/volume] in Serum or PlasmaOrdered By: Chaz Frey on 30-79-1984VYS [Catalytic activity/Vol]Alanine aminotransferase [Enzymatic activity/volume] in Serum or Plasma7-52[facility] Medical CenterAlbumin [Mass/volume] in Serum or Plasma by Bromocresol green (BCG) dye binding methoOrdered By: Chaz Frey on 98-62-9533Jamojzc BCG dye [Mass/Vol] Albumin [Mass/volume] in Serum or Plasma by Bromocresol green (BCG) dye binding metho3.5-5.7FCleveland Clinic Mentor HospitalAlkaline phosphatase [Enzymatic activity/volume] in Serum or PlasmaOrdered By: Chaz Frey on 19-90-1162YMF [Catalytic activity/Vol]Alkaline phosphatase [Enzymatic activity/volume] in Serum or Xsirfb63-905DybvtrwexWright-Patterson Medical CenterAspartate aminotransferase [Enzymatic activity/volume] in Serum or PlasmaOrdered By: Chaz Frey on 99-20-6903BVF [Catalytic activity/Vol]Aspartate aminotransferase [Enzymatic activity/volume] in Serum or Eindsc34-03WxfpdsyehWright-Patterson Medical Center Basophils Auto (Bld) [#/Vol]Ordered By: Chaz Frey on 69-33-0697Prnbctupl (Bld) [#/Vol]Automated basophil count0.0-0.2FC[facility] Basophils/100 WBC Auto (Bld)Ordered By: Chaz Frey on 69-93-2000Javkifkca/100 WBC (Bld)Automated basophil %.[facility] Medical CenterBilirubin.total [Mass/volume] in Serum or PlasmaOrdered By: Chaz Frey on 16-22-7943Rejkdxtsi [Mass/Vol]Bilirubin.total [Mass/volume] in Serum or PlasmaHigh0.3-1.0[facility] Medical CenterCalcium [Mass/volume] in Serum or PlasmaOrdered By: Chaz Frey on 64-94-9345Eopxlxc [Mass/Vol]Calcium [Mass/volume] in Serum or Plasma 8.6-10.3FCleveland Clinic Mentor HospitalCarbon dioxide, total [Moles/volume] in Serum or PlasmaOrdered By: Chaz Frey on 70-53-4711JO6 [Moles/Vol]Carbon dioxide, total [Moles/volume] in Serum or ErzbzoUveg84.0-31.0[facility] Medical CenterChloride [Moles/volume] in Serum or PlasmaOrdered By: Chaz Frey on 52-04-9031Mldzicdu [Moles/Vol]Chloride [Moles/volume] in Serum or Bvyjgl55-126SxftukhyoWright-Patterson Medical CenterComplete Blood Count Auto Diffon 70-27-8938Ekoloeonf (Bld) [#/Vol]0.0 10*3/uLNormal0.0-0.2The [facility] Physician [facility] HospitalComment on above:Result Comment: PERFORMED BY:[address] [place], [place] [phone] MEDICAL DIRECTORVÍCTOR LUCERO M.D.Performed By: #### HS TROP, PRL, CMP, CBC ####[address] [address] [place] Basophils/100 WBC (Bld)0.6 %Normal.The [facility] Physician GroupComment on above:Performed By: #### HS TROP, PRL, CMP, CBC ####[address] [address] USAEosinophils (Bld) [#/Vol]0.0 10*3/uL Normal0.0-0.45The [facility] Physician GroupComment on above:Performed By: #### HS TROP, PRL, CMP, CBC ####[place] [address] USAEosinophils/100 WBC (Bld)0.1 %Normal.The [facility] Physician GroupComment on above:Performed By: #### HS TROP, PRL, CMP, CBC ####[address] Erythrocyte distribution width (RBC) [Ratio]13.3 %Ltsqdb42.0-14.8The [facility] Physician GroupComment on above:Performed By: #### HS TROP, PRL, CMP, CBC ####[address] Hematocrit (Bld) [Volume fraction]43.0 %Rxnsgh75.8-50.0The [facility] Physician GroupComment on above:Performed By: #### HS TROP, PRL, CMP, CBC ####[place] [address] USAHemoglobin (Bld) [Mass/Vol]14.6 g/rIErahwf55.0-17.0The [facility] Physician GroupComment on above: Performed By: #### HS TROP, PRL, CMP, CBC ####[place] [address] USALymphocytes (Bld) [#/Vol]1.4 10*3/uLNormal 1.00-4.8The [facility] Physician GroupComment on above:Performed By: #### HS TROP, PRL, CMP, CBC ####[place] [address] USALymphocytes/100 WBC (Bld)20.9 %Normal.The [facility] Comment on above:Performed By: #### HS TROP, PRL, CMP, CBC ####[place] [address] USAMCH (RBC) [Entitic mass]29.1 dhKujxck30.5-35.2The [facility] Physician GroupComment on above: Performed By: #### HS TROP, PRL, CMP, CBC ####[place] [id number] USAMCV (RBC) [Entitic vol]85.8 gLCepylh49.5-101 The [facility] Physician GroupComment on above:Performed By: #### HS TROP, PRL, CMP, CBC ####[place] [address] USAMean Corpuscular HGB Conc33.9 g/nQDttzdj21.5-35.6The [facility] Physician GroupComment on above:Performed By: #### HS TROP, PRL, CMP, CBC ####[place] [address] USAMonocytes (Bld) [#/Vol]0.6 10*3/uLNormal0.0-0.8The [facility] Physician GroupComment on above: Performed By: #### HS TROP, PRL, CMP, CBC ####[place] [address] USAMonocytes/100 WBC (Bld)8.5 %Normal.The [facility] Physician GroupComment on above:Performed By: #### HS TROP, PRL, CMP, CBC ####[place] [address] [place] Neutrophils (Bld) [#/Vol]4.7 10*3/uLNormal1.8-7.7The [facility] Comment on above:Performed By: #### HS TROP, PRL, CMP, CBC ####[place] [address] USANeutrophils/100 WBC (Bld)69.9 %Normal.The [facility] Physician GroupComment on above:Performed By: #### HS TROP, PRL, CMP, CBC ####[place] [address] USANRBC%0.1 /100{WBC}Normal0-0.5The [facility] Physician GroupComment on above:Performed By: #### HS TROP, PRL, CMP, CBC ####[place] [address] USAPlatelet mean volume (Bld) [Entitic vol]7.6 fLNormal6.6-10.1The [facility] Physician GroupComment on above:Performed By: #### HS TROP, PRL, CMP, CBC ####[address] [address] USAPlatelets (Bld) [#/Vol]216 10*3/uL Mvxrco987-205Imb [facility] Physician GroupComment on above:Performed By: #### HS TROP, PRL, CMP, CBC ####[address] [address] USARBC (Bld) [#/Vol]5.01 10*6/uLNormal3.90-5.60The [facility] Physician GroupComment on above:Performed By: #### HS TROP, PRL, CMP, CBC ####[place] [address] USAWBC (Bld) [#/Vol]6.7 10*3/uLNormal4.1-10.5The [facility] Physician GroupComment on above:Performed By: #### HS TROP, PRL, CMP, CBC ####[place] [address] USAComprehensive Metabolic Panelon 93-79-4526Wmibcar [Mass/Vol]3.9 g/dLNormal3.5-5.7The [facility]ician Group Comment on above:Performed By: #### HS TROP, PRL, CMP, CBC ####[place] [address] USAAlbumin/Globulin [Mass ratio]1.6 {ratio}NormalThe [facility] Physician GroupComment on above: Performed By: #### HS TROP, PRL, CMP, CBC ####[place] [address] USAALP [Catalytic activity/Vol]93 U/QAlywfq53-715 The [facility] Physician GroupComment on above:Performed By: #### HS TROP, PRL, CMP, CBC ####[place] [id number] USAALT [Catalytic activity/Vol]10 U/LNormal7-52The [facility] Comment on above:Performed By: #### HS TROP, PRL, CMP, CBC ####[place] [address] USAAnion gap [Moles/Vol] 9.7 mmol/LNormal6.0-15.0The [facility] Physician GroupComment on above:Performed By: #### HS TROP, PRL, CMP, CBC ####[place] [address] USAAST [Catalytic activity/Vol]16 U/AJcmcig84-80Cxz [facility] Physician GroupComment on above:Performed By: #### HS TROP, PRL, CMP, CBC ####[place] [address] [place] Bilirubin [Mass/Vol]1.2 mg/dLHigh0.3-1.0The [facility] Physician GroupComment on above:Performed By: #### HS TROP, PRL, CMP, CBC ####[place] [address] USACalcium [Mass/Vol]9.4 mg/dLNormal 8.6-10.3The [facility] Physician GroupComment on above:Performed By: #### HS TROP, PRL, CMP, CBC ####[place] [address] USAChloride [Moles/Vol]105 mmol/IKyzljv91-577Cel [facility] Physician GroupComment on above:Performed By: #### HS TROP, PRL, CMP, CBC ####[place] [address] USACO2 [Moles/Vol]31.4 mmol/LHigh21.0-31.0The [facility] Physician GroupComment on above:Performed By: #### HS TROP, PRL, CMP, CBC ####[place] [address] USACreatinine [Mass/Vol]1.10 mg/dLNormal0.70-1.30The [facility] Physician GroupComment on above:Performed By: #### HS TROP, PRL, CMP, CBC ####[place] [address] [place] [address] [place] Creatinine Clr Calc Ptdnrgjc99.51NormalThe [facility] Physician GroupComment on above:Performed By: #### HS TROP, PRL, CMP, CBC ####[place] [address] USAGFR/1.73 sq M.predicted MDRD (S/P/Bld) [Vol rate/Area]mL/min/{1.73_m2}NormalThe [facility] Physician GroupComment on above:Performed By: #### HS TROP, PRL, CMP, CBC ####[place] [address] USAGlobulin (S) [Mass/Vol]2.4 g/dLNormal The [facility] Physician GroupComment on above:Performed By: #### HS TROP, PRL, CMP, CBC ####[place] [address] USAGlucose [Mass/Vol]113 mg/lJLzme59-580Pnu [facility] Physician GroupComment on above:Result Comment: Random Glucose Reference Range is dependent on time and content of last meal. Glucose of more than 200 mg/dL in a nonstressed, ambulatory subject supports the diagnosis of Diabetes Mellitus. ADA recommended reference rangePerformed By: #### HS TROP, PRL, CMP, CBC ####[place] [address] USAPotassium [Moles/Vol]4.1 mmol/LNormal3.5-5.1The [facility] Physician GroupComment on above:Performed By: #### HS TROP, PRL, CMP, CBC ####[place] [id number] USAProtein [Mass/Vol]6.3 g/dLLow6.4-8.9The [facility] Physician GroupComment on above:Performed By: #### HS TROP, PRL, CMP, CBC ####[place] [address] USASodium [Moles/Vol]142 mmol/UMqwvwp653-350Jec [facility] Physician GroupComment on above: Performed By: #### HS TROP, PRL, CMP, CBC ####[facility] [address] [place] [address] USAUrea nitrogen [Mass/Vol]22 mg/dLNormal7-25The [facility] Physician GroupComment on above:Performed By: #### HS TROP, PRL, CMP, CBC ####[facility] [address] [place] [id number] [facility] Creatinine [Mass/volume] in Serum or PlasmaOrdered By: Chaz Frey on 79-30-1541Qyxdhxrwez [Mass/Vol]Creatinine [Mass/volume] in Serum or Plasma 0.70-1.30[facility] Medical CenterECH echo transthoracicon 69-90-6630MII echo transthoracicNoUNC Health Blue Ridge [facility] Physician GroupEosinophils Auto (Bld) [#/Vol]Ordered By: Chaz Frey on 83-60-7738Efqwwifgijx (Bld) [#/Vol]Automated eosinophil count0.0-0.45[facility] Medical CenterEosinophils/100 WBC Auto (Bld)Ordered By: Chaz Frey on 49-63-8991Wlogvciaogs/100 WBC (Bld) Automated eosinophil %.[facility] Medical CenterErythrocyte distribution width Auto (RBC) [Ratio]Ordered By: Chaz Frey on 39-10-8677Crxywzqnyvr distribution width (RBC) [Ratio]Erythrocyte distribution width [Ratio] by Automated count12.0-14.8[facility] Medical CenterGlobulin Calc (S) [Mass/Vol]Ordered By: Chaz Frey on 72-94-3712Nghiqnyl (S) [Mass/Vol]Serum globulin measurement by calculation (mass/volume)[facility] CenterGlucose [Mass/volume] in Serum or PlasmaOrdered By: Chaz Frey on 58-62-3585Sffsjnn [Mass/Vol]Glucose [Mass/volume] in Serum or YamsowZsds73-147 [facility] CenterComment on above:ADA recommended reference rangeRandom Glucose Reference Range is dependent on time and content of last meal. Glucose of more than 200 mg/dL in a nonstressed, ambulatory subject supports the diagnosisof Diabetes Mellitus.Hematocrit Auto (Bld) [Volume fraction]Ordered By: Chaz Frey on 02-83-0813Obqjuweasc (Bld) [Volume fraction]Hematocrit [Volume Fraction] of Blood by Automated count38.8-50.0 [facility] CenterHemoglobin [Mass/volume] in BloodOrdered By: Chaz Frey on 45-44-3345Wxcusveqro (Bld) [Mass/Vol]Hemoglobin [Mass/volume] in Blood13.0-17.0[facility] Medical CenterLeukocytes [#/volume] corrected for nucleated erythrocytes in Blood by Automated counOrdered By: Chaz Frey on 47-26-8801HHW corrected for nucl RBC Auto (Bld) [#/Vol]Leukocytes [#/volume] corrected for nucleated erythrocytes in Blood by Automated coun 4.1-10.5FCleveland Clinic Mentor HospitalLymphocytes Auto (Bld) [#/Vol]Ordered By: Chaz Frey on 88-75-6308Rgyjjiszrwu (Bld) [#/Vol]Lymphocytes [#/volume] in Blood by Automated count1.00-4.8[facility] Lymphocytes/100 WBC Auto (Bld)Ordered By: Chaz Frey on 11-18-2024 Lymphocytes/100 WBC (Bld)Lymphocytes/100 leukocytes in Blood by Automated count. [facility] Medical CenterMCH Auto (RBC) [Entitic mass]Ordered By: Chaz Frey on 52-57-9658DFN (RBC) [Entitic mass]MCH [Entitic mass] by Automated count27.5-35.2FCleveland Clinic Mentor HospitalMCHC Auto (RBC) [Mass/Vol]Ordered By: Chaz Frey on 67-72-6696AHWM (RBC) [Mass/Vol]MCHC [Mass/volume] by Automated count32.5-35.6FCleveland Clinic Mentor HospitalMCV Auto (RBC) [Entitic vol]Ordered By: Chaz Frey on 17-59-3610JLR (RBC) [Entitic vol]MCV [Entitic volume] by Automated count83.5-101[facility] Medical CenterMonocytes Auto (Bld) [#/Vol]Ordered By: Chaz Frey on 32-99-5467Ohrqqwoha (Bld) [#/Vol] Automated blood monocyte count0.0-0.8[facility] Monocytes/100 WBC Auto (Bld)Ordered By: Chaz Frey on 03-38-5056Wconjvetz/100 WBC (Bld)Automated monocyte %.[facility] Medical CenterNeutrophils Auto (Bld) [#/Vol]Ordered By: Chaz Frey on 23-07-2739Vnxflxnsgsu (Bld) [#/Vol] Neutrophils [#/volume] in Blood by Automated count1.8-7.7FCleveland Clinic Mentor HospitalNeutrophils/100 WBC Auto (Bld)Ordered By: Chaz Frey on 48-82-9986Mgrqbnaumhd/100 WBC (Bld)Automated neutrophil %.[facility] Medical CenterNo Panel InformationOrdered By: Chaz Frey on 11-18-2024 Estimated GFR (CKD-EPI)> 60.0 mL/MinWright-Patterson Medical CenterPharmacy Creatinine Clearance (Chem72.51[facility] Medical CenterNucleated erythrocytes [Presence] in Blood by Automated countOrdered By: Chaz Frey on 82-12-7665Ozdlaqjvf RBC Auto Ql (Bld)Nucleated erythrocytes [Presence] in Blood by Automated count0-0.5FCleveland Clinic Mentor HospitalPlatelet mean volume Auto (Bld) [Entitic vol]Ordered By: Chaz Frey on 82-90-6276Cmysuacc mean volume (Bld) [Entitic vol]Platelet mean volume [Entitic volume] in Blood by Automated count6.6-10.1FCleveland Clinic Mentor HospitalPlatelets Auto (Bld) [#/Vol]Ordered By: Chaz Frey on 95-66-5669Oxmjtditq (Bld) [#/Vol]Platelets [#/volume] in Blood by Automated -396MdikjyxezWright-Patterson Medical Center Potassium [Moles/volume] in Serum or PlasmaOrdered By: Chaz Frey on 07-89-2779Pmsdtkfdz [Moles/Vol]Potassium [Moles/volume] in Serum or Plasma 3.5-5.1FCleveland Clinic Mentor HospitalProlactinon 18-05-2600Mricsyxpv40.14 ng/mLHigh2.64-13.13The [facility] Physician GroupComment on above:Result Comment: PERFORMED BY:[place] [address] [address] [place], [place] [phone] MEDICAL DIRECTORVÍCTOR LUCERO M.D. Performed By: #### HS TROP, PRL, CMP, CBC ####[facility] [address] [place] [address] USAProlactin [Mass/volume] in Serum or Plasma Ordered By: Chaz Frey on 79-77-1204Pyphnxrtd [Mass/Vol]Prolactin [Mass/volume] in Serum or PlasmaHigh2.64-13.13[facility] Protein [Mass/volume] in Serum or PlasmaOrdered By: Chaz Frey on 11-18-2024 Protein [Mass/Vol]Protein [Mass/volume] in Serum or PlasmaLow6.4-8.9[facility] Medical CenterRBC Auto (Bld) [#/Vol]Ordered By: Chaz Frey on 95-71-7223GPP (Bld) [#/Vol]Erythrocytes [#/volume] in Blood by Automated count 3.90-5.60Cl[facility] Memorial Hospitalerum or plasma albumin/globulin mass ratioOrdered By: Chaz Frey on 55-44-3455Jytwnxl/Globulin [Mass ratio]Serum or plasma albumin/globulin mass ratioClinton Memorial Hospitalerum or plasma anion gap determinationOrdered By: Chaz Frey on 18-49-2407Dissl gap [Moles/Vol]Serum or plasma anion gap determination6.0-15.0Cl[facility] Memorial Hospitalodium [Moles/volume] in Serum or PlasmaOrdered By: Chaz Frey on 41-39-2956Hhswoz [Moles/Vol]Sodium [Moles/volume] in Serum or Njihdp768-865 [facility] Medical CenterTroponin I High Sensitivityon 11-18-2024 Troponin I High Jrjcrwtcztl78.6 pg/mLHigh0.0-20.0The [facility] Comment on above:Result Comment: PERFORMED BY:[place] [address] [address], [place] [phone] MEDICAL DIRECTORVÍCTOR LUCERO M.D.Performed By: #### HS TROP, PRL, CMP, CBC ####[facility] [address] Troponin I.cardiac [Mass/volume] in Serum or Plasma by Detection limit <= 0.01 ng/Ordered By: Chaz Frey on 18-90-9082Hkejyxtn I.cardiac DL <= 0.01 ng/mL [Mass/Vol]Troponin I.cardiac [Mass/volume] in Serum or Plasma by Detection limit <= 0.01 ng/High0.0-20.0[facility] Medical CenterUrea nitrogen [Mass/volume] in Serum or PlasmaOrdered By: Chaz Frey on 82-02-5167Dkzp nitrogen [Mass/Vol]Urea nitrogen [Mass/volume] in Serum or Plasma7-25[facility] Medical CenterWBC Auto (Bld) [#/Vol]Ordered By: Chaz Frey on 09-00-0578PAZ (Bld) [#/Vol]Leukocytes [#/volume] in Blood by Automated count 4.1-10.5FCleveland Clinic Mentor HospitalAmphetamine Screen Ql (U)Ordered By: Jamin Sepulveda on 79-13-0072Vbwngcrbrdmh Ql (U)Amphetamines screenHighNegative [facility] Medical CenterAmphetamine cutoff [Mass/volume] in Urine for Confirmatory methodOrdered By: Chaz Frey on 25-15-6144Euextjrrysm cutoff Confirm (U) [Mass/Vol]Amphetamine cutoff [Mass/volume] in Urine for Confirmatory nsycszDhbjlq=258OifmzzjgbWright-Patterson Medical CenterAmphetamine+Methamphetamine [Presence] in UrineOrdered By: Chaz Frey on 11-17-2024 Amphetamine+Methamphetamine Ql (U)Amphetamine+Methamphetamine [Presence] in XebwaLryqeyxoMdobnr=3047Cdsxjtydp Regional Medical CenterComment on above: Amphetamine test includes Amphetamine and Methamphetamine.Amphetamines [Presence] in UrineOrdered By: Chaz Frey on 60-06-9844Pbcybvpwnuju Ql (U) Amphetamines [Presence] in UrineAbnormal.[facility] Amphetamines [Presence] in Urine by Screen methodOrdered By: Chaz Frey on 87-33-9764Vghnjdmybtjg Screen Ql (U)Amphetamines [Presence] in Urine by Screen lvkndcPmdzwl=2344LuofdcpwwWright-Patterson Medical CenterComment on above:Amphetamine test includes Amphetamine and Methamphetamine.Appearance of UrineOrdered By: Jamin Sepulveda on 05-98-8369Dfolqtvphs (U)Urine appearanceCleAvita Health System Ontario HospitalBacteria [Presence] in Urine by AutomatedOrdered By: Jamin Sepulveda on 91-50-5002Kulnnelg Auto Ql (U)Bacteria [Presence] in Urine by AutomatedNone SeenWright-Patterson Medical CenterBarbiturates [Presence] in Urine by Screen methodOrdered By: Jamin Sepulveda on 36-52-2944Pawngwzqtcgl Screen Ql (U) Barbiturates [Presence] in Urine by Screen ikciphHxlxga=389Imqifzhrl[address] [place], [place] [address]Benzodiazepines Screen Ql (U)Ordered By: Jamin Sepulveda on 53-74-4604Immyjdqdfwgqncf Ql (U)Benzodiazepines [Presence] in Urine by Screen methodHighNegAdena Health SystemBenzodiazepines [Presence] in UrineOrdered By: Chaz Frey on 19-03-0008Zhejolqlcwgvjcw Ql (U) Benzodiazepines [Presence] in JfjyvKjstic=188Ewdzqinlv[address] [place] [address] Benzoylecgonine [Presence] in Urine by Screen methodOrdered By: Jamin Sepulveda on 72-73-2482Abprwcnerscyifw Screen Ql (U)Benzoylecgonine [Presence] in Urine by Screen methodNegAdena Health SystemBilirubin Test strip Ql (U)Ordered By: Jamin Sepulveda on 22-17-1185Pjmhukidm Ql (U)Bilirubin.total [Presence] in Urine by Test stripNegAdena Health SystemCT angio neckon 91-88-4577WX angio neckNoUNC Health [facility] Physician GroupCT head stroke alert wo conon 03-17-8498JY head stroke alert wo conNECU Health [facility] Physician GroupCannabinoids [Mass/volume] in Urine by Confirmatory methodOrdered By: Chaz Frey on 59-99-9363Ecjlytyavoyv Confirm (U) [Mass/Vol]Cannabinoids [Mass/volume] in Urine by Confirmatory methodCutoff=[address] [place], [place] [address]Cannabinoids [Presence] in Urine by Screen methodOrdered By: Jamin Sepulveda on 51-31-2144Svwulrmbyrxb Screen Ql (U)Cannabinoids [Presence] in Urine by Screen methodCutoff=50Wright-Patterson Medical CenterComment on above:These are unconfirmed results and should not be used for legal purposes. Drug Cut-Off Concentration: AMPH 1000 ng/mL BHASKAR 200 ng/mL RIKKI 200 ng/mL COCM 300 ng/mL OP 300 ng/mL PCP 25 ng/mL THC 20 ng/mLColor Auto (U)Ordered By: Jamin Sepulveda on 14-12-9884Vmzci (U)Color of Urine by AutoYellowWright-Patterson Medical Center Complete Blood Count Auto Diffon 00-91-3918Eihirmqam (Bld) [#/Vol]0.0 10*3/uL Normal0.0-0.2The [facility] Physician GroupComment on above:Result Comment: PERFORMED BY:[address] [place], [place] [phone] MEDICAL DIRECTORVÍCTOR LUCERO M.D. Performed By: #### PTT, CMP, PT, CBC, CK, PRL, HS TROP ####[place] [id number] USABasophils/100 WBC (Bld)0.4 % Normal.The [facility] Physician GroupComment on above:Performed By: #### PTT, CMP, PT, CBC, CK, PRL, HS TROP ####[place] [id number] USAEosinophils (Bld) [#/Vol]0.0 10*3/uLNormal0.0-0.45 The [facility] Physician GroupComment on above:Performed By: #### PTT, CMP, PT, CBC, CK, PRL, HS TROP ####[place] [address] USAEosinophils/100 WBC (Bld)0.1 %Normal.The [facility] Physician GroupComment on above:Performed By: #### PTT, CMP, PT, CBC, CK, PRL, HS TROP ####[address] Erythrocyte distribution width (RBC) [Ratio]13.6 %Hoklnl97.0-14.8The [facility] Physician GroupComment on above:Performed By: #### PTT, CMP, PT, CBC, CK, PRL, HS TROP ####[address] Hematocrit (Bld) [Volume fraction]46.4 %Giyvnn53.8-50.0The [facility] Physician GroupComment on above:Performed By: #### PTT, CMP, PT, CBC, CK, PRL, HS TROP ####[address] Hemoglobin (Bld) [Mass/Vol]15.6 g/jOMhnslh33.0-17.0The [facility] Comment on above:Performed By: #### PTT, CMP, PT, CBC, CK, PRL, HS TROP ####[address] Lymphocytes (Bld) [#/Vol]0.4 10*3/uLLow1.00-4.8The [facility] Comment on above:Performed By: #### PTT, CMP, PT, CBC, CK, PRL, HS TROP ####[address] Lymphocytes/100 WBC (Bld)4.4 %Normal.The [facility] Physician GroupComment on above:Performed By: #### PTT, CMP, PT, CBC, CK, PRL, HS TROP ####[address] StreetMCH (RBC) [Entitic mass]28.8 lmKysebz32.5-35.2The [facility] Physician GroupComment on above: Performed By: #### PTT, CMP, PT, CBC, CK, PRL, HS TROP ####[address]MCV (RBC) [Entitic vol]85.6 fL Xecqly77.5-101The [facility] Physician GroupComment on above:Performed By: #### PTT, CMP, PT, CBC, CK, PRL, HS TROP ####[place] [address] USAMean Corpuscular HGB Conc33.6 g/bSEsezoc92.5-35.6The [facility] Physician GroupComment on above:Performed By: #### PTT, CMP, PT, CBC, CK, PRL, HS TROP ####[place] [address] USAMonocytes (Bld) [#/Vol]0.3 10*3/uLNormal0.0-0.8The [facility] Physician GroupComment on above:Performed By: #### PTT, CMP, PT, CBC, CK, PRL, HS TROP ####[place] [address] [place] Monocytes/100 WBC (Bld)15.39 %Normal0.00-20.00The [facility] Comment on above:Performed By: #### PTT, CMP, PT, CBC, CK, PRL, HS TROP ####[place] [address] [place] Monocytes/100 WBC (Bld)3.3 %Normal.The [facility] Physician GroupComment on above:Performed By: #### PTT, CMP, PT, CBC, CK, PRL, HS TROP ####[place] [address] USANeutrophils (Bld) [#/Vol]9.2 10*3/uLHigh1.8-7.7The [facility] Physician GroupComment on above: Performed By: #### PTT, CMP, PT, CBC, CK, PRL, HS TROP ####[place] [address] USANeutrophils/100 WBC (Bld)91.8 % Normal.The [facility] Physician GroupComment on above:Performed By: #### PTT, CMP, PT, CBC, CK, PRL, HS TROP ####[place] [address] USANRBC%0.1 /100{WBC}Normal0-0.5The [facility] Physician GroupComment on above:Performed By: #### PTT, CMP, PT, CBC, CK, PRL, HS TROP ####[place] [address] USAPlatelet mean volume (Bld) [Entitic vol]7.3 fLNormal6.6-10.1The [facility] Physician GroupComment on above:Performed By: #### PTT, CMP, PT, CBC, CK, PRL, HS TROP ####[place] [address] [place] Platelets (Bld) [#/Vol]280 10*3/tEVmgtyq034-919Enz [facility] Comment on above:Performed By: #### PTT, CMP, PT, CBC, CK, PRL, HS TROP ####[place] [address] USARBC (Bld) [#/Vol]5.42 10*6/uLNormal3.90-5.60The [facility] Physician GroupComment on above:Performed By: #### PTT, CMP, PT, CBC, CK, PRL, HS TROP ####[place] [address] USAWBC (Bld) [#/Vol]10.1 10*3/uLNormal4.1-10.5The [facility] Physician GroupComment on above:Performed By: #### PTT, CMP, PT, CBC, CK, PRL, HS TROP ####[place] [address] USAComprehensive Metabolic Panelon 11-17-2024 Albumin [Mass/Vol]4.2 g/dLNormal3.5-5.7The [facility] Physician GroupComment on above:Performed By: #### PTT, CMP, PT, CBC, CK, PRL, HS TROP ####[address] [place] [address] USAAlbumin/Globulin [Mass ratio]1.7 {ratio}NormalThe [facility] Physician GroupComment on above:Performed By: #### PTT, CMP, PT, CBC, CK, PRL, HS TROP ####[place] [address] USAALP [Catalytic activity/Vol]95 U/L Hnetiu58-723Yjh [facility] Physician GroupComment on above:Performed By: #### PTT, CMP, PT, CBC, CK, PRL, HS TROP ####[place] [address] USAALT [Catalytic activity/Vol]12 U/LNormal7-52The [facility] Physician GroupComment on above:Performed By: #### PTT, CMP, PT, CBC, CK, PRL, HS TROP ####[place] [address] USAAnion gap [Moles/Vol]13.0 mmol/LNormal6.0-15.0The [facility] Physician GroupComment on above:Performed By: #### PTT, CMP, PT, CBC, CK, PRL, HS TROP ####[place] [address] USAAST [Catalytic activity/Vol]24 U/YUvgqai80-78Eqf [facility] Physician GroupComment on above:Performed By: #### PTT, CMP, PT, CBC, CK, PRL, HS TROP ####[place] [address] USABilirubin [Mass/Vol] 0.6 mg/dLNormal0.3-1.0The [facility] Physician GroupComment on above:Performed By: #### PTT, CMP, PT, CBC, CK, PRL, HS TROP ####[place] [address] USACalcium [Mass/Vol]9.1 mg/dLNormal 8.6-10.3The [facility] Physician GroupComment on above:Performed By: #### PTT, CMP, PT, CBC, CK, PRL, HS TROP ####[place] [address] [place] [address] USAChloride [Moles/Vol]104 mmol/VBckaus82-595Nvz [facility] Physician GroupComment on above:Performed By: #### PTT, CMP, PT, CBC, CK, PRL, HS TROP ####[place] [address] [place] [address] USACO2 [Moles/Vol]29.2 mmol/QCfasjh51.0-31.0The [facility] Comment on above:Performed By: #### PTT, CMP, PT, CBC, CK, PRL, HS TROP ####[place] [address] [place] [address] [place] Creatinine [Mass/Vol]1.27 mg/dLNormal0.70-1.30The [facility] Physician [facility] Comment on above:Performed By: #### PTT, CMP, PT, CBC, CK, PRL, HS TROP ####[place] [address] USAGFR/1.73 sq M.predicted MDRD (S/P/Bld) [Vol rate/Area]mL/min/{1.73_m2}NormalThe [facility] Physician GroupComment on above:Performed By: #### PTT, CMP, PT, CBC, CK, PRL, HS TROP ####[place] [address] USAGlobulin (S) [Mass/Vol]2.5 g/dLNormalThe [facility] Physician [facility] Comment on above:Performed By: #### PTT, CMP, PT, CBC, CK, PRL, HS TROP ####[place] [address] USAGlucose [Mass/Vol]163 mg/xPCiuo03-585Xpv [facility] Physician GroupComment on above: Result Comment: Random Glucose Reference Range is dependent on time and content of last meal. Glucose of more than 200 mg/dL in a nonstressed, ambulatory subject supports the diagnosis of Diabetes Mellitus. ADA recommended reference rangePerformed By: #### PTT, CMP, PT, CBC, CK, PRL, HS TROP ####[place] [address] [place] [address] USAPotassium [Moles/Vol] 4.2 mmol/LNormal3.5-5.1The [facility] Physician GroupComment on above:Performed By: #### PTT, CMP, PT, CBC, CK, PRL, HS TROP ####[place] [address] [place] [address] USAProtein [Mass/Vol]6.7 g/dLNormal6.4-8.9 The [facility] Physician GroupComment on above:Performed By: #### PTT, CMP, PT, CBC, CK, PRL, HS TROP ####[place] [address] [place] [address] USASodium [Moles/Vol]142 mmol/QLcqwkp313-858Ria [facility] Physician GroupComment on above:Performed By: #### PTT, CMP, PT, CBC, CK, PRL, HS TROP ####[place] [address] USAUrea nitrogen [Mass/Vol]16 mg/dLNormal7-25The [facility] Comment on above:Performed By: #### PTT, CMP, PT, CBC, CK, PRL, HS TROP ####[place] [address] USACreatine Kinaseon 00-36-5672TB [Catalytic activity/Vol]134 U/SItueck29-104Oha [facility] Physician GroupComment on above:Performed By: #### PTT, CMP, PT, CBC, CK, PRL, HS TROP ####[place] [address] [place] Creatine kinase [Enzymatic activity/volume] in Serum or PlasmaOrdered By: Jamin Sepulveda on 48-64-6619PR [Catalytic activity/Vol]Creatine kinase [Enzymatic activity/volume] in Serum or Anfmyq95-715TfwvnymqrWright-Patterson Medical Center Dipstick and Microscopicon 80-51-2460Knpqtqtzgi (U)ClearNormalClearThe [facility] Physician GroupComment on above:Order Comment: Name Collection Type:: Clean- Voided MidstreamPerformed By: #### URDS, ADDONUAPLUS ####[address] [place] [address] USABacteria,UrineNone SeenNormal None SeenOrlando Health Orlando Regional Medical Center Physician GroupComment on above:Order Comment: Name Collection Type:: Clean-Voided MidstreamPerformed By: #### URDS, ADDONUAPLUS ####[address] [address] [place] Bilirubin,UrineNegativeNormalNegativeOrlando [facility] Physician GroupComment on above:Order Comment: Name Collection Type:: Clean-Voided MidstreamPerformed By: #### URDS, ADDONUAPLUS ####[address] [address] USAColor (U)YellowNormalYellowOrlando Health Orlando Regional [facility] Center Physician GroupComment on above:Order Comment: Name Collection Type:: Clean-Voided MidstreamPerformed By: #### URDS, ADDONUAPLUS ####[address] [address] USAGlucose Ql (U)70 mg/dLHighNormAdventHealth North Pinellas Physician GroupComment on above:Order Comment: Name Collection Type:: Clean-Voided MidstreamPerformed By: #### URDS, ADDONUAPLUS ####[address] [address] USAHyaline Casts,Urine NoneNormal0-8The [facility] Physician GroupComment on above:Order Comment: Name Collection Type:: Clean-Voided MidstreamPerformed By: #### URDS, ADDONUAPLUS ####[address] [place] [address] USAKetones Ql (U)NegativeNormalNegativeOrlando [facility] Physician GroupComment on above:Order Comment: Name Collection Type:: Clean-Voided MidstreamPerformed By: #### URDS, ADDONUAPLUS ####[address] [address] USALeukocyte esterase Test strip Ql (U)NegativeNormalNegativeOrlando [facility] Physician GroupComment on above:Order Comment: Name Collection Type:: Clean- Voided MidstreamPerformed By: #### URDS, ADDONUAPLUS ####[address] [address] USAMucus,UrineRareNormalThe [facility] Physician GroupComment on above:Order Comment: Name Collection Type:: Clean-Voided MidstreamResult Comment: PERFORMED BY:[address] [place], [place] [phone] MEDICAL DIRECTORVÍCTOR LUCERO M.D.Performed By: #### URDS, ADDONUAPLUS ####[address] [address] [place] Nitrite,UrineNegativeNormalNegativeThe [facility] Physician GroupComment on above:Order Comment: Name Collection Type:: Clean-Voided MidstreamPerformed By: #### URDS, ADDONUAPLUS ####[address] [address] USAOccult Blood,UrineNegativeNormalNegativeThe [facility] Physician GroupComment on above:Order Comment: Name Collection Type:: Clean-Voided MidstreamPerformed By: #### URDS, ADDONUAPLUS ####[address] [address] USApH (U)6.5 [pH]Normal 5.0-9.0The [facility] Physician GroupComment on above:Order Comment: Name Collection Type:: Clean-Voided MidstreamPerformed By: #### URDS, ADDONUAPLUS ####[address] [address] USAProtein (U) [Mass/Vol]70 mg/dLHighNegativeThe [facility] Physician GroupComment on above:Order Comment: Name Collection Type:: Clean-Voided MidstreamPerformed By: #### URDS, ADDONUAPLUS ####[address] [address] USARBC,Urine3 [HPF]Normal0-4The [facility] Physician GroupComment on above:Order Comment: Name Collection Type:: Clean-Voided MidstreamPerformed By: #### URDS, ADDONUAPLUS ####[address] [address] USASpecificy Lowry,Urine>1.050High 1.001-1.030The [facility] Physician GroupComment on above:Order Comment: Name Collection Type:: Clean-Voided MidstreamResult Comment: Rechecked by refractometerPerformed By: #### URDS, ADDONUAPLUS ####[address] [address] USASquamous Epithelial Cell,Urine1 [HPF] Normal0-2The [facility] Physician GroupComment on above:Order Comment: Name Collection Type:: Clean-Voided MidstreamPerformed By: #### URDS, ADDONUAPLUS ####[address] [address] [place] Urobilinogen,UrineNormalNormalNormalThe [facility] Physician GroupComment on above:Order Comment: Name Collection Type:: Clean-Voided MidstreamPerformed By: #### URDS, ADDONUAPLUS ####[address] [address] USAWBC,Urine1 [HPF]Normal0-4The [facility] Physician GroupComment on above:Order Comment: Name Collection Type:: Clean-Voided MidstreamPerformed By: #### URDS, ADDONUAPLUS ####[address] [address] USADrug Screen,Urineon 11-17-2024 Amphetamine Screen,UrinePositiveHighNegativeThe [facility] Physician GroupComment on above:Performed By: #### URDS, ADDONUAPLUS ####[address] [address] USABarbiturate Screen,UrineNegativeNormal NegativeThe [facility] Physician GroupComment on above:Performed By: #### URDS, ADDONUAPLUS ####[address] [address] USABenzodiazepines Screen,UrinePositiveHighNegativeThe [facility] Physician GroupComment on above:Performed By: #### ОЛЬГА, ADDONUAPLUS ####[address] [address] USACannabinoid Screen,UrinePositiveHighNegativeOr[facility] Physician [facility] HospitalComment on above: Result Comment: These are unconfirmed results and should not be used for legal purposes. Drug Cut-Off Concentration: AMPH 1000 ng/mL BHASKAR 200 ng/mL RIKKI 200 ng/mL COCM 300 ng/mL OP 300 ng/mL PCP 25 ng/mL THC 20 ng/mLPERFORMED BY:[address] [place], [place] [phone] MEDICAL DIRECTORVÍCTOR LUCERO M.D.Performed By: #### ОЛЬГА, ADDONUAPLUS ####[place] [phone] USACocaine Screen,UrineNegativeNormalNegativeThe [facility] Physician [facility] HospitalComment on above:Performed By: #### ОЛЬГА, ADDONUAPLUS ####[address] [address] USAOpiate Screen,Urine NegativeNormalNegativeThe [facility]Barre General HospitalComment on above:Performed By: #### ОЛЬГА, ADDONUAPLUS ####[address] [address] USAPhencyclidine Screen,UrineNegativeNormalNegativeThe [facility] HospitalComment on above:Performed By: #### ОЛЬГА, ADDONUAPLUS ####[address] [address] USAECG 12 lead ECGon 22-73-9903SOI 12 lead ECGNormalThe [facility] Physician [facility] Epithelial cells.squamous [#/area] in Urine sediment by Automated countOrdered By: Jamin Sepulveda on 25-82-8811Xwrkhfjzba cells.squamous Auto (Urine sed) [#/Area]Epithelial cells.squamous [#/area] in Urine sediment by Automated count 0-2FCleveland Clinic Mentor HospitalErythrocyte Sedimentation Rateon 11-17-2024 ESR (Bld) [Velocity]2 mm/hNormal0-19The [facility] Physician GroupComment on above:Result Comment: PERFORMED BY:[place] [address] [place], [place] [phone] MEDICAL DIRECTORVÍCTOR ARSHAD M.D.Performed By: #### B12, ESR, HS TROP ####[address] [address] USAErythrocyte sedimentation rate by Photometric methodOrdered By: Chaz Frey on 82-71-3820UJJ Photometric method (Bld) [Velocity]Erythrocyte sedimentation rate by Photometric method0 [facility] Medical CenterErythrocytes [#/area] in Urine sediment by Automated countOrdered By: Jamin Sepulveda on 02-60-1784KVQ Auto (Urine sed) [#/Area]Erythrocytes [#/area] in Urine sediment by Automated count0C[facility] Clinic Mentor HospitalEthanol [Mass/volume] in Serum or PlasmaOrdered By: Jamin Sepulveda on 18-67-9122Chlcham [Mass/Vol]Ethanol [Mass/volume] in Serum or PlasmaWright-Patterson Medical CenterComment on above:Test not performedEthyl Alcohol Profileon 47-95-3231Xxdbbib [Mass/Vol]mg/dLNoUNC Health [facility] Ridge - Valdese Physician GroupComment on above:Performed By: #### ETOH ####[address] [address] USAPercent EthanolNot performedNoUNC Health Blue Ridge - Valdese Physician GroupComment on above:Result Comment: PERFORMED BY:[place] [address] [place], [place] [phone] MEDICAL DIRECTORVÍCTOR LUCERO M.D.Performed By: #### ETOH ####[address] [address] USAGlucose Glucometer (BldC) [Mass/Vol]Ordered By: Jamin Sepulveda on 07-03-9444Ppubqdb [Mass/Vol]Capillary blood glucose measurement by glucometer (mass/volume) [facility]terson Medical CenterComment on above:Random Glucose Reference Range is dependent on time and content of last meal. Glucose of more than 200 mg/dL in a nonstressed, ambulatory subject supports the diagnosis of Diabetes Mellitus.Glucose Poct Glucometerson 31-04-3005Zlkxzqp [Mass/Vol]175 mg/dLNormal The [facility] Physician GroupComment on above:Result Comment: Random Glucose Reference Range is dependent on time and content of last meal. Glucose of more than 200 mg/dL in a nonstressed, ambulatory subject supports the diagnosis of Diabetes Mellitus.PERFORMED BY:[place] [address] [place], [place] [phone] MEDICAL DIRECTORVÍCTOR ARSHAD M.D.Performed By: #### GLULS ####Point of Care testing,Glucose [Mass/volume] in Urine by Test stripOrdered By: Jamin Sepulveda on 11-17-2024 Glucose Test strip (U) [Mass/Vol]Glucose [Mass/volume] in Urine by Test strip HighKettering Health SpringfieldHemoglobin Test strip Ql (U)Ordered By: Jamin Sepulveda on 73-97-0250Uwqilhvmyi Ql (U)Hemoglobin [Presence] in Urine by Test stripNegAdena Health SystemHyaline casts [#/area] in Urine sediment by Automated countOrdered By: Jamin Sepulveda on 46-24-4351Punnrqh casts Auto (Urine sed) [#/Area]Hyaline casts [#/area] in Urine sediment by Automated count0-8W[facility] Medical CenterINR in Platelet poor plasma by Coagulation assayOrdered By: Jamin Sepulveda on 89-55-4074PKL Coag (PPP) [Relative time]INR in Platelet poor plasma by Coagulation assayWright-Patterson Medical CenterComment on above:INR Therapeutic Range A) Pre- and [...] strip Ql (U)Ordered By: Jamin Sepulveda on 73-91-1986Ntimgzw Ql (U)Ketones [Presence] in Urine by Test stripNegativeWright-Patterson Medical CenterLeukocyte esterase [Presence] in Urine by Test stripOrdered By: Jamin Sepulveda on 93-28-4114Bxauhfxdd esterase Test strip Ql (U)Leukocyte esterase [Presence] in Urine by Test stripNegative [facility] Medical CenterLeukocytes [#/area] in Urine sediment by Automated countOrdered By: Jamin Sepulveda on 84-77-9298TKR Auto (Urine sed) [#/Area]Leukocytes [#/area] in Urine sediment by Automated count0-4FCleveland Clinic Mentor HospitalMagnesiumon 97-34-2051Gzxrdehos [Mass/Vol]1.9 mg/dLNormal 1.9-2.7The [facility] Physician GroupComment on above:Order Comment: Comment add onResult Comment: PERFORMED BY:[facility] [place] [address] [place], [place] [phone] MEDICAL DIRECTORVÍCTOR ARSHAD M.D.Performed By: #### MG ####[address] [address] USAMagnesium [Mass/volume] in Serum or PlasmaOrdered By: Chaz Palafox on 21-93-3573Jnvwpsiik [Mass/Vol]Magnesium [Mass/volume] in Serum or Plasma1.9-2.7FCleveland Clinic Mentor HospitalMethamphetamine [Presence] in UrineOrdered By: Chaz Frey on 36-99-1131Qhgchjvysxmfzut Ql (U) Methamphetamine [Presence] in UrineAbnormal.[facility] Methamphetamine cutoff [Mass/volume] in Urine for Confirmatory methodOrdered By: Chaz Frey on 94-02-5395Ntcdaloirqynmnm cutoff Confirm (U) [Mass/Vol] Methamphetamine cutoff [Mass/volume] in Urine for Confirmatory kvxbojXckarm=190 [facility] Medical CenterMonocyte distribution width [Entitic volume] in Blood by AutomatedOrdered By: Jamin Sepulveda on 28-94-2556Ybmscklp distribution width Auto (Bld) [Entitic vol]Monocyte distribution width [Entitic volume] in Blood by Automated0.00-20.00W[facility]-Patterson Medical CenterMucus [Presence] in Urine by AutomatedOrdered By: Jamin Sepulveda on 55-34-7612Sujdo Auto Ql (U)Mucus [Presence] in Urine by AutomatedWright-Patterson Medical CenterNitrite Test strip Ql (U)Ordered By: Jamin Sepulveda on 73-89-7682Vlyqsva Ql (U)Nitrite [Presence] in Urine by Test stripNegAdena Health System Opiates [Presence] in UrineOrdered By: Chaz Frey on 27-10-1336Rgyytmp Ql (U) Opiates [Presence] in MsoyuPbogdd=519YvqfvxdvvWright-Patterson Medical CenterComment on above:Opiate test includes Codeine and Morphine only.Opiates [Presence] in Urine by Screen methodOrdered By: Jamin Sepulveda on 18-93-3360Npjgfxn Screen Ql (U)Opiates [Presence] in Urine by Screen methodNegAdena Health SystemPartial Thromboplastin Timeon 49-02-4829sIGN Coag (Bld) [Time]22.3 sLow25.1-36.5The [facility] Physician GroupComment on above:Result Comment: A hematocrit value greater than 55% may lead to inaccurate results in coagulation testing. Patients having hematocrit values >55% require a special collection tube for coagulation studies. Please contact the laboratory at [phone] for redraw instructions.PERFORMED BY:[address] [place], [place] [phone] MEDICAL DIRECTORVÍCTOR ARSHAD M.D.Performed By: #### PTT, CMP, PT, CBC, CK, PRL, HS TROP ####[address] [address] [facility] Phencyclidine Screen Ql (U)Ordered By: Jamin Sepulveda on 66-81-2901Ifnqcfvzyjfvd Ql (U)Phencyclidine [Presence] in Urine by Screen methodNegAdena Health SystemPhencyclidine [Presence] in UrineOrdered By: Chaz Frey on 14-50-4762Ijjuifsdnmdvg Ql (U)Phencyclidine [Presence] in Urine Cutoff=25W[facility]-Patterson Medical CenterComment on above:Performed at: - [facility] [id number] [place], [place] [id number] Director: Adenike Panchal PhD, Phone: [phone] 30-66-5427Ioyhdottm29.22 ng/mLHigh 2.64-13.13The [facility] Physician [facility] County HospitalComment on above:Result Comment: PERFORMED BY:[address] [place], [place] [phone] MEDICAL DIRECTORVÍCTOR LUCERO M.D. Performed By: #### PTT, CMP, PT, CBC, CK, PRL, HS TROP ####[address] [place] [address] USAProtein Test strip (U) [Mass/Vol]Ordered By: Jamin Sepulveda on 82-33-6815Zvzkhmc (U) [Mass/Vol]Protein [Mass/volume] in Urine by Test stripHighNegativeWright-Patterson Medical CenterProthrombin Time INRon 62-04-6551IKU Coag (PPP) [Relative time]1.0 {INR} NormalThe [facility] Physician [facility] HospitalComment on above:Result Comment: INR Therapeutic Range [...] CMP, PT, CBC, CK, PRL, HS TROP ####[address] [address] [place] Coag (PPP) [Time]11.9 s Normal9.0-12.9The [facility] Physician GroupComment on above:Result Comment: A hematocrit value greater than 55% may lead to inaccurate results in coagulation testing. Patients having hematocrit values >55% require a special collection tube for coagulation studies. Please contact the laboratory at [phone] for redraw instructions.Performed By: #### PTT, CMP, PT, CBC, CK, PRL, HS TROP ####[address] [place] [address] [facility] Prothrombin time (PT)Ordered By: Jamin Sepulveda on 44-53-7779XA Coag (PPP) [Time] Prothrombin time (PT)9.0-12.9Wright-Patterson Medical CenterComment on above:A hematocrit value greater than 55% may lead to inaccurate results in coagulation testing. Patientshaving hematocrit values >55% require a special collection tube for coagulation studies. Please contact the laboratory at [phone] for redraw instructions.Specific gravity of Urine by RefractometryOrdered By: Jamin Sepulveda on 89-46-3918Pzicmdut gravity Refractometry (U) [Rel density] Specific gravity of Urine by RefractometryHigh1.001-1.030Wright-Patterson Medical CenterComment on above:Rechecked by refractometerTroponin I High Sensitivityon 24-60-7148Yixutebh I High Lqnyryvzxcb75.7 pg/mLHigh0.0-20.0The [facility] Physician GroupComment on above:Result Comment: PERFORMED BY:[address] [place], [place] [phone] MEDICAL DIRECTORVÍCTOR LUCERO M.D.Performed By: #### B12, ESR, HS TROP ####[address] [place] [id number] [facility] Troponin I High Lhkoextukhs64.1 pg/mLHigh0.0-20.0The [facility] Physician Group Comment on above:Result Comment: PERFORMED BY:[address] [place], [place] [phone] MEDICAL DIRECTORVÍCTOR JONESPAVITHRA RichPerformed By: #### PTT, CMP, PT, CBC, CK, PRL, HS TROP ####[id number] [facility] HOSPITALUrine Drug Screen w/Confirmon 80-36-7940Lprohggjwbcs GC/MS Confirm, Ur 527 ng/wKHdgsmkLbmtfb=165Gij [facility] Physician GroupComment on above:Performed By: #### UDS SCRN wRFX ####[facility] ,Amphetamines, UrSee Final PbrmuhgAxsfxvWsrbtz=8244Ank [facility] Physician GroupComment on above:Result Comment: Amphetamine test includes Amphetamine and Methamphetamine.Performed By: #### UDS SCRN wRFX ####[facility] ,Amphetamines, UrPositiveCritically abnormal.The [facility] Physician GroupComment on above:Result Comment: Amphetamine test includes Amphetamine and Methamphetamine.Performed By: #### UDS SCRN wRFX ####[facility] ,Barbiturate, KdOfrttgsaTpltbuLhikvj=285Jan [facility] Physician GroupComment on above:Performed By: #### UDS SCRN wRFX ####[facility] ,Benzodiazepines, UrSee Final MglnfwnGewbpqLyrvzj=001 The [facility] Physician GroupComment on above:Performed By: #### UDS SCRN wRFX ####[facility] ,Benzodiazepines, IqqolUqbggqgyUcvznuOyoqdp=808Ums [facility] Physician GroupComment on above:Performed By: #### UDS SCRN wRFX ####[facility] ,Cannabinoid, UrSee Final ResultsNormalCutoff=50The [facility] Physician GroupComment on above:Performed By: #### UDS SCRN wRFX ####[facility] ,Cannabinoid, UrineNegativeNormalCutoff=50The [facility] Physician GroupComment on above:Result Comment: PERFORMED BY:[facility] [place], [place] [phone] MEDICAL DIRECTORVÍCTOR LUCERO M.D.Performed By: #### UDS SCRN wRFX ####[facility] ,Cocaine (Metab), QnEunupvjrYwiclzGlcsys=159Ruo [facility] Physician GroupComment on above:Performed By: #### UDS SCRN wRFX ####[facility] ,MethamphetaminePositiveCritically abnormal.The [facility] Physician GroupComment on above:Performed By: #### UDS SCRN wRFX ####[facility] ,Methamphetamines GC/MS, Ur>0561JsukkuKifnpn=103Gpp [facility] Physician GroupComment on above:Performed By: #### UDS SCRN wRFX ####[facility] ,Opaites, UgUvndkchaIjcaqaUuameb=951Yci [facility] Physician Group Comment on above:Result Comment: Opiate test includes Codeine and Morphine only. Performed By: #### UDS SCRN wRFX ####[facility] ,Phencyclidine, Ur NegativeNormalCutoff=25The [facility] Physician GroupComment on above:Result Comment: Performed at: [facility] [address] [place], [place] [address] Procurement Representative: Adenike Panchal PhD, Phone: [phone] By: #### UDS SCRN wRFX ####[facility] ,Urine cocaine metabolite detectionOrdered By: Chaz Frey on 56-52-5118Sunfhwcidaengdq Ql (U)Urine cocaine metabolite mgzjlgbdvYbgrin=822XjiaiobhwWright-Patterson Medical CenterUrobilinogen Test strip (U) [Mass/Vol]Ordered By: Jamin Sepulveda on 06-94-8056Zonkfvkpjxls (U) [Mass/Vol] Urobilinogen [Mass/volume] in Urine by Test stripNoSelect Medical Specialty Hospital - YoungstownVitamin B12on 71-35-6666Ixnwcfydn (Vitamin B12) [Mass/Vol]313 pg/bFSpegxd300-135Uof [facility] Physician GroupComment on above:Result Comment: PERFORMED BY:[facility] [place], [place] [phone] MEDICAL DIRECTORVÍCTOR LUCERO M.D. Performed By: #### B12, ESR, HS TROP ####[facility] [address] [place] [address] [facility] HOSPITALVitamin B12 ser/plasOrdered By: Chaz Frey on 18-85-4696Wqhwajnrr (Vitamin B12) [Mass/Vol]Vitamin B12 ser/pvmf086-767 [facility]-Patterson Medical CenterX-ray reportOrdered By: Dung Chakraborty on 65-82-4800Flcmt reportFIRWADSWORTH-RITTMAN HOSPITAL Main Arjay [address] [place], [place] [address] XRay Report Signed Patient: Aaron Olivarez MR#: [id number] : 1960 Acct:[id number] Age/Sex: 64 / M ADM Date: 5 Loc: Room: [address] [place] [address] Type: ADM INOo Attending Dr: Chaz Frey [...] Dung Chakraborty M.D.11/17/2024 1:26 PM Dictation Location: [place] [address] Transcribed By: [facility] 11/17/24 1326 Dictated By: Dung Chakraborty II, MD 11/17/24 1326 Signed By: 11/17/24 1326 [facility] Work Phone: XR chest 1V portableon 66-26-3881ZD chest 1V portable NormalThe [facility] Physician GroupaPTT in Platelet poor plasma by Coagulation assayOrdered By: Jamin Sepulveda on 76-63-4368fSIP Coag (PPP) [Time]Activated partial thromboplastin time (aPTT) in platelet poor plasma by coagulation aLow 25.1-36.5FCleveland Clinic Mentor HospitalComment on above:A hematocrit value greater than 55% may lead to inaccurate results in coagulation testing. Patients having hematocrit values >55% require a special collection tube for coagulation studies. Please contact the laboratory at [phone] for redraw instructions. pH Test strip (U)Ordered By: Jamin Sepulveda on 47-09-7992jC (U)pH of Urine by Test strip5.0-9.0W[facility]-Patterson Medical CenterCB with Diffon 03-37-1137Wxb. Basophil0.04 k/uLNormal0.00-0.20Cleveland ClinicComment on above:Performed By: #### CDP, CMPX, MG #### [facility] [address] [place] [address] Procurement Representative: Olya Barrera.Imm.Granulocyte<0.99Byxnmh7.00-0.30C[facility] ClinicComment on above:Performed By: #### CDP, CMPX, MG #### [facility] [address] [place] [address] Procurement Representative: Olya Barrera.Neutrophil (Seg)3.52 k/uLNormal1.50-8.10 [facility] ClinicComment on above:Performed By: #### CDP, CMPX, MG #### [place] [address] Procurement Representative: Dario Almanza MDBasophils/100 WBC (Bld)1 %Normal0-2MChildren's Hospital and Health CenterComment on above:Performed By: #### CDP, CMPX, MG #### [facility] [address] [place] [address] Procurement Representative: Dario Almanza MDEosinophils (Bld) [#/Vol]0.03 10*3/uLNormal 0.00-0.44C[facility] ClinicComment on above:Performed By: #### CDP, CMPX, MG #### [facility] [address] [place] [address] Procurement Representative: KEATON Barreraosinophils/100 WBC (Bld)1 %Normal1-4C[facility] ClinicComment on above:Performed By: #### CDP, CMPX, MG #### [facility] [address] [place] [address] Procurement Representative: Dario Almanza MDErythrocyte distribution width (RBC) [Ratio]13.1 %Wditwv19.8-14.4C[facility] ClinicComment on above:Performed By: #### CDP, CMPX, MG #### [place] [address] Procurement Representative: Dario Almanza MDHematocrit (Bld) [Volume fraction]42.4 %Normal 40.7-50.3Mcleveland clinic hillcrest hospitaly [facility]aternity [facility] Surgery HospitalComment on above:Performed By: #### CDP, CMPX, MG #### [place] [address] Procurement Representative: Dario Almanza MDHemoglobin (Bld) [Mass/Vol]13.7 g/dLNormal 13.0-17.0C[facility] ClinicComment on above:Performed By: #### CDP, CMPX, MG #### [address] [address] Procurement Representative: Dario Almanza MDImmature granulocytes/100 WBC (Bld)0 %Normal0 [facility] ClinicComment on above:Performed By: #### CDP, CMPX, MG #### [place] [address] Procurement Representative: Dario Almanza MDLymphocytes (Bld) [#/Vol]1.19 10*3/uLNormal 1.10-3.70C[facility] ClinicComment on above:Performed By: #### CDP, CMPX, MG #### [facility] [address] [place] [address] Procurement Representative: Mis Barreramphocytes/100 WBC (Bld)22 %Nzw04-66VacufCleveland ClinicComment on above:Performed By: #### CDP, CMPX, MG #### [facility] [address] [place] [address] Procurement Representative: ELISABETH BarreraCH (RBC) [Entitic mass]29.6 nlFhqqcp90.2-33.5 [facility] ClinicComment on above:Performed By: #### CDP, CMPX, MG #### [facility] [address] [place] [address] Procurement Representative: ELISABETH BarreraCHC (RBC) [Mass/Vol]32.3 g/mUEdhijf45.4-34.8 [facility] ClinicComment on above:Performed By: #### CDP, CMPX, MG #### [address] [address] Procurement Representative: ELISABETH BarreraCV (RBC) [Entitic vol]91.6 aJVratkl27.6-102.9 [facility] ClinicComment on above:Performed By: #### CDP, CMPX, MG #### [facility] [address] [place] [address] Procurement Representative: ELISABETH Barreraonocytes (Bld) [#/Vol]0.61 10*3/uLNormal 0.10-1.20C[facility] ClinicComment on above:Performed By: #### CDP, CMPX, MG #### [facility] [address] [place] [address] Procurement Representative: ELISABETH Barreraonocytes/100 WBC (Bld)11 %Normal3-12C[facility] ClinicComment on above:Performed By: #### CDP, CMPX, MG #### [facility] [address] [place] [address] Procurement Representative: Dario Almanza MDNeutrophil (Seg)65 %Loowyq13-58KudddCleveland ClinicComment on above:Performed By: #### CDP, CMPX, MG #### [address] [address] Procurement Representative: BUNNY Barrera Automated0.0 per 100 WBCNormal0.0Cleveland ClinicComment on above:Performed By: #### CDP, CMPX, MG #### [address] [address] Procurement Representative: Abida Barrera mean volume (Bld) [Entitic vol]9.2 fL Normal8.1-13.5Cleveland ClinicComment on above:Performed By: #### CDP, CMPX, MG #### [address] [address] Procurement Representative: Christel Barreratekaity (Bld) [#/Vol]227 10*3/lJZnogfc391-727 [facility] ClinicComment on above:Performed By: #### CDP, CMPX, MG #### [address] [address] Procurement Representative: SOBIA Barrera (Bld) [#/Vol]4.63 10*6/uLNormal4.21-5.77 [facility] ClinicComment on above:Performed By: #### CDP, CMPX, MG #### [address] [address] Procurement Representative: DENTON Barrera (Bld) [#/Vol]5.4 10*3/uLNormal3.5-11.3MChildren's Hospital and Health CenterComment on above:Performed By: #### CDP, CMPX, MG #### [address] [address] Procurement Representative: Dario Madoff, MDComp Metabolic Pr/rfx MGon 66-64-1014Lbjvwiq [Mass/Vol]3.8 g/dLNormal3.5-5.2Mcleveland clinic hillcrest hospitaly [facility] Surgery HospitalComment on above: Performed By: #### CDP, CMPX, MG #### [address] [address] Procurement Representative: Dario Almanza MDAlbumin/Glob Ratio2.1Ggwdhl6.0-2.5C[facility] ClinicComment on above:Performed By: #### CDP, CMPX, MG #### [address] [address] Procurement Representative: Harsha Barrerakaline Mjgc897 U/OHsvyhu94-047KiglwCleveland ClinicComment on above:Performed By: #### CDP, CMPX, MG #### [address] [address] Procurement Representative: Dario Almanza MDALT [Catalytic activity/Vol]7 U/DUek12-29SbgzkCleveland ClinicComment on above:Performed By: #### CDP, CMPX, MG #### [address] [address] Procurement Representative: Dario Almanza MDAnion gap [Moles/Vol]7 mmol/LLow9-16C[facility] ClinicComment on above:Performed By: #### CDP, CMPX, MG #### [address] [address] Procurement Representative: Dario Almanza MDAST [Catalytic activity/Vol]20 U/LMetmht72-31 [facility] ClinicComment on above:Performed By: #### CDP, CMPX, MG #### [facility] [address] [place] [address] Procurement Representative: Dario Almanza MDBilirubin [Mass/Vol]0.6 mg/dLNormal0.00-1.20 [facility] ClinicComment on above:Performed By: #### CDP, CMPX, MG #### [facility] [address] [place] [address] Procurement Representative: NEHEMIAS Barreraalcium [Mass/Vol]9.3 mg/dLNormal8.6-10.4C[facility] ClinicComment on above:Performed By: #### CDP, CMPX, MG #### [facility] [address] [place] [address] Procurement Representative: NEHEMIAS Barrerahloride [Moles/Vol]103 mmol/BMavrfy42-702KrdqnCleveland ClinicComment on above:Performed By: #### CDP, CMPX, MG #### [address] [address] Procurement Representative: Dario Almanza MDCO2 [Moles/Vol]28 mmol/DAbuqxl43-46OebhtCleveland ClinicComment on above:Performed By: #### CDP, CMPX, MG #### [facility] [address] [place] [address] Procurement Representative: NEHEMIAS Barrerareatinine [Mass/Vol]0.9 mg/dLNormal0.70-1.20 [facility] ClinicComment on above:Performed By: #### CDP, CMPX, MG #### [place] [address] Procurement Representative: Dario Almanza MDGFR/1.73 sq M.predicted among non-blacks MDRD (S/P/Bld) [Vol rate/Area]mL/min/{1.73_m2}Normal>60Cleveland ClinicComment on above:Result Comment: These results are not [...] #### CDP, CMPX, MG #### [facility] [address] [place] [address] Procurement Representative: Dario Almanza MDGlucose [Mass/Vol]95 mg/iRXimzak44-70FzllrChildren's Hospital and Health CenterComment on above:Performed By: #### CDP, CMPX, MG #### [facility] [address] [place] [address] Procurement Representative: Dario Almanza MDPotassium [Moles/Vol]3.4 mmol/LLow3.7-5.3MChildren's Hospital and Health CenterComment on above:Performed By: #### CDP, CMPX, MG #### [place] [address] Procurement Representative: Dario Almanza MDProtein [Mass/Vol]5.8 g/dLLow6.6-8.7C[facility] ClinicComment on above:Performed By: #### CDP, CMPX, MG #### [facility] [address] [place] [address] Procurement Representative: Dario Almanza MDSodium [Moles/Vol]138 mmol/MMlxsgs799-223NaivnCleveland ClinicComment on above:Performed By: #### CDP, CMPX, MG #### [facility] [address] [address] Procurement Representative: Dario Almanza MDUrea nitrogen [Mass/Vol]15 mg/dLNormal8-23C[facility] ClinicComment on above:Performed By: #### CDP, CMPX, MG #### [facility] [address] [place] [address] Procurement Representative: Dario Almanza MDMagnesiumon 09-61-0380Qxuvzzfgf [Mass/Vol]2.0 mg/dLNormal1.6-2.4C[facility] ClinicComment on above:Performed By: #### CDP, CMPX, MG #### [facility] [employer] [facility] [address] [place] [address] Procurement Representative: RO Barrera, POCon 71-00-4145Qxaw nitrogen [Mass/Vol]18 mg/dLNormal8-26Cleveland ClinicCT BRAIN PERFUSIONon 12-53-6104KM BRAIN PERFUSIONEXAMINATION: CTA OF THE HEAD AND [...] by: Edgar Montilla MD 07/14/24 Final resultNormalMercy Sutter Maternity And Surgery HospitalCTA HEAD NECK W CONTRASTon 96-80-7070GYT HEAD NECK W CONTRASTEXAMINATION: CTA OF THE [...] Signed by: Edgar Montilla MD 07/14/24 Final resultNormalMerNaval Hospital OaklandCalcium, Ionic (POC)on 56-45-0605Wqdqmxs [Moles/Vol]1.11 mmol/LLow1.15-1.33Cleveland ClinicCreatinine w/GFR, POCon 34-06-5135Vqoqmqwmqd [Mass/Vol]1.0 mg/dLNormal 0.51-1.19Cleveland ClinicGFR/1.73 sq M.predicted among non- blacks MDRD (S/P/Bld) [Vol rate/Area]84 mL/min/{1.73_m2}Normal>60MerNaval Hospital OaklandComment on above:Result Comment: These results are not [...] renal tubular secretion.Drug Scr, Abuse, Uron 07-14-2024 Amphetamine(s),UrPositiveAbnormalNEGCleveland ClinicComment on above:Result Comment: Cutoff: 1000 ng/mLPerformed By: #### UAREBECCA MARIA D #### [employer] [facility] [address] [place] [address] Procurement Representative: Dario Almanza MDBenzodiazepine(s)PositiveAbbaldwynNEGCleveland ClinicComment on above:Result Comment: Cutoff: 200 ng/ml Performed By: #### UAMIC, MARIA D #### [facility] [address] [place] [address] Procurement Representative: NEHEMIAS Barreraannabinoid(s),UrPositiveAbnormalNEGMerNaval Hospital OaklandComment on above:Result Comment: Cutoff: 50 ng/mlPerformed By: #### UAMIC, MARIA D #### [facility] [address] [place] [address] Procurement Representative: Dario Almanza MDInterpretive InfoAssay provides rapid clinical screening only. Presumptive positive results Lutheran HospitalComment on above:Result Comment: legal purposes should be confirmed by another method. To request confirmation, please call the lab within 7 days of sample submission.Performed By: #### UAMIC, MARIA D #### [address] [address] Procurement Representative: Dario Almanza MDBarbiturate(s),UrNegativeNormalNEGCleveland ClinicComment on above:Result Comment: Cutoff: 200 ng/ml Performed By: #### UAMIC, MARIA D #### [address] [address] Procurement Representative: NEHEMIAS Barreraocaine MetaboliteNegativeGaithersburgNEGCleveland ClinicComment on above:Result Comment: Cutoff: 300 ng/ml Performed By: #### UAMIC, MARIA D #### [facility] [address] [place] [address] Procurement Representative: Dario Almanza MDFentanyl, UrineNegativeNormtxNEGCleveland ClinicComment on above:Result Comment: Cutoff: 5 ng/mlPerformed By: #### UAMIC, MARIA D #### [facility] [address] [place] [address] Procurement Representative: ELISABETH Barreraethadone Ql (U)NegativeNormalProMedica Fostoria Community HospitalComment on above:Result Comment: Cutoff: 300 ng/ml Performed By: #### UAMIC, MARIA D #### [facility] [address] [place] [address] Procurement Representative: Dario Almanza MDOpiate(s), UrNegativeWood County HospitalComment on above:Result Comment: Cutoff: 300 ng/mlPerformed By: #### UAMIC, MARIA D #### [facility] [address] [place] [address] Procurement Representative: Dario Almanza MDOxycodone, UrineNegativeWood County HospitalComment on above:Result Comment: Cutoff: 100 ng/ml Performed By: #### UAMIC, MARIA D #### [address] [address] Procurement Representative: Fidelina Barreraidine, UrNegativeWood County HospitalComment on above:Result Comment: Cutoff: 25 ng/mlPerformed By: #### UAMIC, MARIA D #### [address] [address] Procurement Representative: Dario Almanza MDElectrolyteson 38-05-0389Crbqr gap [Moles/Vol]9 mmol/LNormal7-16Cleveland ClinicChloride [Moles/Vol]101 mmol/L Tbhuuq82-574DsqtpCleveland ClinicCO2 [Moles/Vol]32 mmol/CIkmj91-61 [facility] ClinicPotassium [Moles/Vol]4.0 mmol/LNormal3.5-4.5 Galion Hospitalodium [Moles/Vol]141 mmol/OTxehht775-020NveutCleveland ClinicGlucose (POC)on 88-02-2817Quybwhv [Mass/Vol]172 mg/dL Tyzn76-887FvwqgCleveland ClinicHgb/Hct, POCon 88-54-9225Buyfetvbvt (Bld) [Volume fraction]43 %Srprgg94-45Kxxzk [facility] Surgery HospitalHemoglobin (Bld) [Mass/Vol]14.8 g/iYFjuzap29.5-17.5[facility] Surgery HospitalLactic Acidon 14-01-5686Cbvlaz Acid,Whole Bl1.7 mmol/LNormal0.7-2.1[facility] Surgery HospitalComment on above:Performed By: #### EDTOX, LACTIC #### [employer] [facility] [address] [place] [address] Procurement Representative: Dario Almanza MDLactic Acid (POC)on 71-05-8438Dybxbsf [Moles/Vol]2.8 mmol/LHigh0.56-1.39[facility] Surgery HospitalMRI BRAIN W WO CONTRASTon 72-76-3845OTX BRAIN W WO CONTRASTEXAMINATION: MRI OF THE [...] collection present. The proximal portions of the tonto apache of [place] demonstrate normal flow voids. ORBITS: [...] Signed by: Edgar Montilla MD 07/14/24 Final resultNormalGalion Hospitaltroke Panelon 74-88-1042Kra. Basophil0.06 k/uLNormal0.00-0.20C[facility] ClinicComment on above:Performed By: #### STROKE #### [address] [address] Procurement Representative: MDAbs. BruceImm.Granulocyte0.00 k/uLNormal0.00-0.30C[facility] ClinicComment on above:Performed By: #### STROKE #### [place] [address] Procurement Representative: Olya Barrera.Neutrophil (Seg)5.40 k/uLNormal1.50-8.10 [facility] ClinicComment on above:Performed By: #### STROKE #### [address] [address] Procurement Representative: Dario Almanza MDBasophils/100 WBC (Bld)1 %Normal0-2Mer[facility] Surgery HospitalComment on above:Performed By: #### STROKE #### [address] [address] Procurement Representative: Dario Almanza MDEosinophils (Bld) [#/Vol]0.00 10*3/uLNormal 0.00-0.44C[facility] ClinicComment on above:Performed By: #### STROKE #### [address] [address] Procurement Representative: KEATON Barreraosinophils/100 WBC (Bld)0 %Low1-4[facility]monds Medical CenterComment on above:Performed By: #### STROKE #### [address] [address] Procurement Representative: Dario Almanza MDImmature granulocytes/100 WBC (Bld)0 %Normal0 [facility] ClinicComment on above:Performed By: #### STROKE #### [address] [address] Procurement Representative: Dario Almanza MDLymphocytes (Bld) [#/Vol]0.43 10*3/uLLow 1.10-3.70C[facility] ClinicComment on above:Performed By: #### STROKE #### [address] [address] Procurement Representative: Mis Barreramphocytes/100 WBC (Bld)7 %Sfe35-15MsmgeCleveland ClinicComment on above:Performed By: #### STROKE #### [address] [address] Procurement Representative: ELISABETH Barreraonocytes (Bld) [#/Vol]0.31 10*3/uLNormal 0.10-1.20C[facility] ClinicComment on above:Performed By: #### STROKE #### [address] [address] Procurement Representative: ELISABETH Barreraonocytes/100 WBC (Bld)5 %Normal3-12C[facility] ClinicComment on above:Performed By: #### STROKE #### [address] [address] Procurement Representative: ELISABETH Barreraorphology David (Bld) [Interp]NormalNormalCleveland ClinicComment on above:Performed By: #### STROKE #### [address] [address] Procurement Representative: Bouchra Barrerautrophil (Seg)87 %Nnrm54-18QqntfCleveland ClinicComment on above:Performed By: #### STROKE #### [address] [address] Procurement Representative: Dario Almanza MDAnion gap [Moles/Vol]8 mmol/LLow9-16C[facility] ClinicComment on above:Performed By: #### STROKE #### [address] [address] Procurement Representative: Dario Almanza MDCalcium [Mass/Vol]8.5 mg/dLLow8.6-10.4Cleveland ClinicComment on above:Performed By: #### STROKE #### [address] [address] Procurement Representative: NEHEMIAS Barrerahloride [Moles/Vol]102 mmol/KTroitz88-014NkegdCleveland ClinicComment on above:Performed By: #### STROKE #### [address] [address] Procurement Representative: Dario Almanza MDCK [Catalytic activity/Vol]101 U/IPwexpf00-968 [facility] ClinicComment on above:Performed By: #### STROKE #### [address] [address] Procurement Representative: Dario Almanza MDCO2 [Moles/Vol]27 mmol/ZSgnxhl12-69WxafsCleveland ClinicComment on above:Performed By: #### STROKE #### [address] [address] Procurement Representative: Dario Almanza MDCreatinine [Mass/Vol]1.1 mg/dLNormal0.70-1.20 [facility] CenterComment on above:Performed By: #### STROKE #### [facility] [employer] [address] [place] [address] Procurement Representative: Dario Almanza MDGFR/1.73 sq M.predicted among non-blacks MDRD (S/P/Bld) [Vol rate/Area]74 mL/min/{1.73_m2}Normal>60Cleveland ClinicComment on above:Result Comment: These results are not [...] renal tubular secretion.Performed By: #### STROKE #### [facility] [employer] [address] [place] [address] Procurement Representative: Dario Almanza MDGlucose [Mass/Vol]174 mg/wCWgyy55-47AzhtuChildren's Hospital and Health CenterComment on above:Performed By: #### STROKE #### [facility] [employer] [address] [place] [address] Procurement Representative: Dario Almanza MDMyoglobin [Mass/Vol]106 ng/nTHrms41-52DncviCleveland ClinicComment on above:Performed By: #### STROKE #### [facility] [employer] [address] [place] [address] Procurement Representative: Dario Almanza MDPotassium [Moles/Vol]4.0 mmol/LNormal3.7-5.3 [facility] ClinicComment on above:Result Comment: SPECIMEN SLIGHTLY HEMOLYZED, RESULTS MAY BE ADVERSELY AFFECTED.Performed By: #### STROKE #### [facility] [employer] [address] [place] [address] Procurement Representative: Dario Almanza MDSodium [Moles/Vol]137 mmol/OMyqolr571-964QyscqCleveland ClinicComment on above:Performed By: #### STROKE #### [address] [address] Procurement Representative: Brendan Barrera High Sens24 ng/LHigh0-Cleveland ClinicComment on above:Result Comment: High Sensitivity Troponin values cannot be compared with other Troponin methodologies.Performed By: #### STROKE #### [address] [address] Procurement Representative: Dario Almanza MDUrea nitrogen [Mass/Vol]16 mg/dLNormal8-Cleveland ClinicComment on above:Performed By: #### STROKE #### [address] [address] Procurement Representative: Dario Almanza MDaPTAundrea Coag (Bld) [Time]22.1 sLow23.0-36.5Cleveland ClinicComment on above:Result Comment: IV Heparin Therapy Range: 66.0-92.0 secPerformed By: #### STROKE #### [address] [address] Procurement Representative: ESPERANZA Barrera Coag (PPP) [Relative time]1.1 {INR}Normal Cleveland ClinicComment on above:Result Comment: Therapeutic Range: Moderate Anticoagulant Intensity: INR = 2.0-3.0 High Anticoagulant Intensity: INR = 2.5-3.5Performed By: #### STROKE #### [address] [address] Procurement Representative: JAYLAN Barrera Coag (PPP) [Time]13.6 bRjtldy41.7-14.9Cleveland ClinicComment on above:Performed By: #### STROKE #### [address] [address] Procurement Representative: Dario Almanza MDErythrocyte distribution width (RBC) [Ratio]13.2 %Pdwfut00.8-14.4Cleveland ClinicComment on above:Performed By: #### STROKE #### [address] [address] Procurement Representative: Dario Almanza MDHematocrit (Bld) [Volume fraction]42.4 %Normal 40.7-50.3MChildren's Hospital and Health CenterComment on above:Performed By: #### STROKE #### [address] [address] Procurement Representative: Dario Almanza MDHemoglobin (Bld) [Mass/Vol]13.9 g/dLNormal 13.0-17.0Cleveland ClinicComment on above:Performed By: #### STROKE #### [address] [address] Procurement Representative: ELISABETH BarreraCH (RBC) [Entitic mass]29.6 atOfcmps29.2-33.5 [facility] ClinicComment on above:Performed By: #### STROKE #### [address] [address] Procurement Representative: ELISABETH BarreraCHC (RBC) [Mass/Vol]32.8 g/kTUcsljh50.4-34.8 [facility] ClinicComment on above:Performed By: #### STROKE #### [address] [address] Procurement Representative: ELISABETH BarreraCV (RBC) [Entitic vol]90.2 kVCvhxqj17.6-102.9 [facility] ClinicComment on above:Performed By: #### STROKE #### [address] [address] Procurement Representative: Dario Almanza MDNRBC Automated0.0 per 100 WBCNormal0.0Cleveland ClinicComment on above:Performed By: #### STROKE #### [address] [address] Procurement Representative: Abida Barrera mean volume (Bld) [Entitic vol]9.3 fL Normal8.1-13.5Cleveland ClinicComment on above:Performed By: #### STROKE #### [address] [address] Procurement Representative: Ayan Barrera (Bld) [#/Vol]267 10*3/kJFmnwth510-039 [facility] ClinicComment on above:Performed By: #### STROKE #### [address] [address] Procurement Representative: SOBIA Barrera (Bld) [#/Vol]4.70 10*6/uLNormal4.21-5.77 [facility] ClinicComment on above:Performed By: #### STROKE #### [address] [address] Procurement Representative: DENTON Barrera (Bld) [#/Vol]6.2 10*3/uLNormal3.5-11.3Mcleveland clinic hill[facility] hospitaly [facility]aternity [facility] Surgery HospitalComment on above:Performed By: #### STROKE #### [address] [address] Procurement Representative: NILA Barrera w/reflex to FT4on 84-36-5611Fxclmcs Stim. Horm.1.44 uIU/mLNormal0.27-4.20Cleveland ClinicComment on above: Performed By: #### TSHX ####[address] [place] [address] Lab Director: Lavon Barrera Scr, Bld, EDon 07-14-2024 Acetaminophen [Mass/Vol]ug/vPUux48-31LtzofCleveland ClinicComment on above:Performed By: #### EDTOX, LACTIC #### [facility] [address] [place] [address] Procurement Representative: Dario Almanza MDEthanol [Mass/Vol]mg/dLNormal<10Cleveland ClinicComment on above:Performed By: #### EDTOX, LACTIC #### [facility] [address] [place] [address] Procurement Representative: Dario Almanza MDEthanol percent<0.010Normal<0.010Cleveland ClinicComment on above:Performed By: #### EDTOX, LACTIC #### [facility] [address] [place] [address] Procurement Representative: VANESA Barreraalicylate<0.6Pffdkf7.0-10.0Cleveland ClinicComment on above:Performed By: #### EDTOX, LACTIC #### [facility] [address] [place] [address] Procurement Representative: Dario Almanza MDUrinalysis w/ Microon 20-28-9108AgdmjqlkBour NormalNONEMeSan Luis Rey HospitalComment on above:Performed By: #### UAMIC, MARIA D #### [address] [address] Procurement Representative: Dario Almanza MDBilirubin, SemiQt,UrNegativeNormalNEGCleveland ClinicComment on above:Performed By: #### UAMIC, MARIA D #### [facility] [address] [place] [address] Procurement Representative: Dario Almanza MDBlood, UrineNegativeNormalNEGCleveland ClinicComment on above:Performed By: #### UAMIC, MARIA D #### [facility] [employer] [address] [place] [address] Procurement Representative: NEHEMIAS Barreraasts5 TO 10 HYALINENormal0-8Cleveland ClinicComment on above:Result Comment: Reference range defined for non- centrifuged specimen.Performed By: #### ERI, MARIA D #### [address] [address] Procurement Representative: NEHEMIAS Barreralarity (U)ClearNormalCLEARCleveland ClinicComment on above:Performed By: #### UAREBECCA, MARIA D #### [address] [address] Procurement Representative: NEHEMIAS Barreraolor (U)YellowNormalYELMerNaval Hospital OaklandComment on above:Performed By: #### ERI, MARIA D #### [place] [address] Procurement Representative: Dario Almanza MDEpithelial cells LM Ql (Urine sed)0 TO 2Normal 0-5Cleveland ClinicComment on above:Performed By: #### ERI, MARIA D #### [address] [address] Procurement Representative: Dario Almanza MDGlucose Ql (U)1+ mg/dLAbnormalNEGCleveland ClinicComment on above:Performed By: #### ELIOMIC, MARIA D #### [address] [address] Procurement Representative: Dario Almanza MDKetones Ql (U)NegativeNormalNEGCleveland ClinicComment on above:Performed By: #### ERI, MARIA D #### [place] [address] Procurement Representative: Dario Almanza MDLeukocyte esterase Test strip Ql (U)Negative NormalNEGCleveland ClinicComment on above:Performed By: #### UAMIC, MARIA D #### [facility] [address] [place] [address] Procurement Representative: Vita Barreraite,UrNegativeNormalNEGCleveland ClinicComment on above:Performed By: #### UAMIC, MARIA D #### [facility] [address] [place] [address] Procurement Representative: JAYME Barrera,Ur7.5Xxuhiv3.0-8.0Cleveland ClinicComment on above:Performed By: #### UAMIC, MARIA D #### [facility] [address] [place] [address] Procurement Representative: Treasure Barrera Ql (U)1+ mg/dLAbnormCleveland Clinic Avon HospitalComment on above:Performed By: #### UAMIC, MARIA D #### [facility] [address] [place] [address] Procurement Representative: VANESA Barrerapec. Lowry,Ur1.771Nlpt0.005-1.030Cleveland ClinicComment on above:Performed By: #### UAMIC, MARIA D #### [facility] [address] [place] [address] Procurement Representative: Sierra Barrera RBC's0 TO 9Hlrptz3-5HujwjCleveland ClinicComment on above:Result Comment: Reference range defined for non- centrifuged specimen.Performed By: #### UAMIC, MARIA D #### [facility] [address] [place] [address] Procurement Representative: Sierra Barrera WBC'sNoneNormal0-5C[facility] ClinicComment on above:Performed By: #### UAMIC, MARIA D #### [facility] [address] [place] [address] Procurement Representative: Dario Madoff, MDUrobilinogen,UrNormalNormal0.0-1.0C[facility] ClinicComment on above:Performed By: #### UAREBECCA, MARIA D #### [facility] [place] [address] Procurement Representative: Dario Almanza MDVenous Bld Gas,POCon 61-62-7396CGZ2 (Bld) [Moles/Vol]31.9 mmol/LHigh22.0-29.0Cleveland ClinicOxygen saturation in Blood45.4 %Low60.0-85.0C[facility] ClinicpCO2, Txekaw47.5 mm EsRzntzy51.0-51.0Cleveland ClinicpH,Venous7.435 High7.320-7.430Cleveland ClinicpO2, Qdcarc36.6 mm HgLow30.0-50.0 [facility] ClinicPositive Base Excess (calc)6.4 mmol/LHigh0.0-3.0 [facility] ClinicXR ABDOMEN (KUB) (SINGLE AP VIEW)on 57-29-7193JA ABDOMEN (KUB) (SINGLE AP VIEW)EXAMINATION: ONE SUPINE [...] Signed by: Jt Gray MD 07/14/24 Final resultNormalCleveland ClinicXR CHEST PORTABLEon 07-14-2024 XR CHEST PORTABLEEXAMINATION: ONE [...] by: Basil Witt DO 07/14/24 Final resultNormalMercy [facility]utter Maternity And Surgery HospitalCalcium [Mass/volume] in Serum or PlasmaOrdered By: Janae Jose on 71-38-3909Xwkbkmt [Mass/Vol]9.0 mg/dL 8.6-10.3FCleveland Clinic Mentor HospitalCarbon dioxide, total [Moles/volume] in Serum or PlasmaOrdered By: Janae Jose on 57-80-4280DC6 [Moles/Vol]30.3 mmol/L21.0-31.0[facility] Medical CenterChloride [Moles/volume] in Serum or PlasmaOrdered By: Janae Jose on 59-26-8133Jjhkepqu [Moles/Vol]98 mmol/L 98-107[facility] Medical CenterCreatinine [Mass/volume] in Serum or PlasmaOrdered By: Janae Jose on 74-50-9442Vkgtcvqwal [Mass/Vol]0.97 mg/dL 0.70-1.30[facility] Medical CenterGlucose [Mass/volume] in Serum or PlasmaOrdered By: Janae Jose on 62-92-1875Nwgbvzs [Mass/Vol]105 mg/cL23-497 [facility] Medical CenterComment on above:ADA recommended reference rangeRandom Glucose Reference Range is dependent on time and content of last meal. Glucose of more than 200 mg/dL in a nonstressed, ambulatory subject supports the diagnosisof Diabetes Mellitus.No Panel InformationOrdered By: Janae Jose on 30-31-1598Kbsblvdpe GFR (CKD-EPI)> 60.0 mL/MinWright-Patterson Medical CenterPharmacy Creatinine Clearance (Chem82.90[facility] Medical CenterPotassium [Moles/volume] in Serum or PlasmaOrdered By: Janae oJse on 62-61-3233Jyfniqxys [Moles/Vol]4.4 mmol/L3.5-5.1FMarietta Osteopathic Clinicerum or plasma anion gap determinationOrdered By: Janae Jose on 40-44-0471Vxuiz gap [Moles/Vol]8.1 mmol/L6.0-15.0[facility] Memorial Hospitalodium [Moles/volume] in Serum or PlasmaOrdered By: Janae Jose on 03-90-4322Aqyyzf [Moles/Vol]132 mmol/C378-513RiofkdbcpWright-Patterson Medical CenterUrea nitrogen [Mass/volume] in Serum or PlasmaOrdered By: Janae Jose on 07-78-1074Xena nitrogen [Mass/Vol]25 mg/dL7-25[facility] Ammonia [Moles/volume] in PlasmaOrdered By: Víctor Agrawal on 89-53-5258Yilcets (P) [Moles/Vol]22 umol/V02-31TkmemfuadWright-Patterson Medical CenterBasophils Auto (Bld) [#/Vol]Ordered By: Magdy Douglass on 08-53-2896Zzrdtfmju (Bld) [#/Vol] 0.0 10*3/uL0.0-0.2FCleveland Clinic Mentor HospitalBasophils/100 WBC Auto (Bld) Ordered By: Magdy Douglass on 87-32-5453Afpaezgmc/100 WBC (Bld)0.1 %. [facility] Medical CenterEosinophils Auto (Bld) [#/Vol]Ordered By: Magdy Douglass on 77-80-2060Sdrxsiccsjm (Bld) [#/Vol]0.0 10*3/uL0.0-0.45 [facility] Medical CenterEosinophils/100 WBC Auto (Bld)Ordered By: Magdy Douglass on 68-13-4409Kxqevyuksgl/100 WBC (Bld)0.0 %.[facility] Medical CenterErythrocyte distribution width Auto (RBC) [Ratio]Ordered By: Magdy Douglass on 03-29-6102Cbvpjlcqoob distribution width (RBC) [Ratio]16.5 %12.0-14.8[facility] Medical CenterFolate [Mass/volume] in Serum or PlasmaOrdered By: Janae Jose on 21-13-8082Wiafze [Mass/Vol]9.7 ng/mL>5.9 [facility] Medical CenterComment on above:Folate reference range: >5.9 ng/mlThe WHO technical consultation on folate and vitamin s52bajjppqpzjth has determined that folate concentrations lessthan 4 ng/ml are considered deficient. Hematocrit Auto (Bld) [Volume fraction]Ordered By: Magdy Douglass on 81-30-5814Htifrdcoqk (Bld) [Volume fraction]45.0 %38.8-50.0[facility] Medical CenterHemoglobin [Mass/volume] in BloodOrdered By: Magdy Douglass on 79-34-0563Kcvaafppjm (Bld) [Mass/Vol]14.8 g/dL13.0-17.0[facility] Medical CenterLeukocytes [#/volume] corrected for nucleated erythrocytes in Blood by Automated counOrdered By: Magdy Douglass on 84-31-4322BEK corrected for nucl RBC Auto (Bld) [#/Vol]9.6 10*3/uL4.1-10.5FCleveland Clinic Mentor HospitalLymphocytes Auto (Bld) [#/Vol]Ordered By: Magdy Douglass on 05-04-2024 Lymphocytes (Bld) [#/Vol]0.5 10*3/uL1.00-4.8[facility] Lymphocytes/100 WBC Auto (Bld)Ordered By: Magdy Douglass on 05-04-2024 Lymphocytes/100 WBC (Bld)4.9 %.[facility] Medical CenterMCH Auto (RBC) [Entitic mass]Ordered By: Magdy Douglass on 02-44-3867ARQ (RBC) [Entitic mass]29.8 pg27.5-35.2FCleveland Clinic Mentor HospitalMCHC Auto (RBC) [Mass/Vol] Ordered By: Magdy Douglass on 71-26-1419TWOQ (RBC) [Mass/Vol]32.9 g/dL 32.5-35.6FCleveland Clinic Mentor HospitalMCV Auto (RBC) [Entitic vol]Ordered By: Magdy Douglass on 68-75-0785VWQ (RBC) [Entitic vol]90.4 fL83.5-101 [facility] CenterMonocytes Auto (Bld) [#/Vol]Ordered By: Magdy Douglass on 89-57-7157Myrgwdrbl (Bld) [#/Vol]0.3 10*3/uL0.0-0.8[facility] Medical CenterMonocytes/100 WBC Auto (Bld)Ordered By: Magdy Douglass on 92-48-6756Fuqmvpctw/100 WBC (Bld)3.0 %.[facility] Neutrophils Auto (Bld) [#/Vol]Ordered By: Magdy Douglass on 05-04-2024 Neutrophils (Bld) [#/Vol]8.9 10*3/uL1.8-7.7FCleveland Clinic [facility] Hospital Neutrophils/100 WBC Auto (Bld)Ordered By: Magdy Doulgass on 05-04-2024 Neutrophils/100 WBC (Bld)92.0 %.[facility] Medical CenterNucleated erythrocytes [Presence] in Blood by Automated countOrdered By: Magdy Douglass on 40-93-4688Ouniidifc RBC Auto Ql (Bld)0.0 /100{WBC}0-0.5FCleveland Clinic Mentor HospitalPlatelet mean volume Auto (Bld) [Entitic vol]Ordered By: Magdy Douglass on 91-11-5501Vswvoldq mean volume (Bld) [Entitic vol]6.5 fL6.6-10.1 [facility] Medical CenterPlatelets Auto (Bld) [#/Vol]Ordered By: Magdy Douglass on 73-01-0975Eiepdacdj (Bld) [#/Vol]417 10*3/rI807-824QxtwivtmhWright-Patterson Medical CenterRBC Auto (Bld) [#/Vol]Ordered By: Magdy Douglass on 86-75-5283TJC (Bld) [#/Vol]4.97 10*6/uL3.90-5.60[facility] Medical CenterThyrotropin [Units/volume] in Serum or PlasmaOrdered By: Janae Jose on 24-01-7342CTZ Qn5.50 m[IU]/L0.45-5.33[facility] Medical CenterVitamin B12 ser/plasOrdered By: Janae Jose on 45-81-3189Etscsyrtu (Vitamin B12) [Mass/Vol]500 pg/iK104-700LtpidlitvWright-Patterson Medical CenterWBC Auto (Bld) [#/Vol]Ordered By: Magdy Douglass on 80-51-5924YID (Bld) [#/Vol]9.6 10*3/uL 4.1-10.5FCleveland Clinic Mentor HospitalAlanine aminotransferase [Enzymatic activity/volume] in Serum or PlasmaOrdered By: Magdy Douglass on 05-03-2024 ALT [Catalytic activity/Vol]14 U/L7-52[facility] Medical CenterAlbumin [Mass/volume] in Serum or Plasma by Bromocresol green (BCG) dye binding metho Ordered By: Magdy Douglass on 65-50-2374Lgnmehh BCG dye [Mass/Vol]3.1 g/dL 3.5-5.7FCleveland Clinic Mentor HospitalAlkaline phosphatase [Enzymatic activity/volume] in Serum or PlasmaOrdered By: Magdy Douglass on 05-03-2024 ALP [Catalytic activity/Vol]131 U/R62-578DchfgaucrWright-Patterson Medical Center Aspartate aminotransferase [Enzymatic activity/volume] in Serum or PlasmaOrdered By: Magdy Douglass on 18-03-7463VNH [Catalytic activity/Vol]12 U/L13-39 [facility] Medical CenterBilirubin.total [Mass/volume] in Serum or PlasmaOrdered By: Magdy Douglass on 58-12-3836Pormrakke [Mass/Vol]0.4 mg/dL 0.3-1.0[facility] Medical CenterGlobulin Calc (S) [Mass/Vol]Ordered By: Magdy Douglass on 79-25-9301Jdvntbqw (S) [Mass/Vol]2.8 g/dLWright-Patterson Medical CenterProtein [Mass/volume] in Serum or PlasmaOrdered By: Magdy Douglass on 41-98-4834Wpxtkwg [Mass/Vol]5.9 g/dL6.4-8.9Clinton Memorial Hospitalerum or plasma albumin/globulin mass ratioOrdered By: Magdy Douglass on 20-22-2818Ycsumqg/Globulin [Mass ratio]1.1 {ratio}[facility] Medical CenterC reactive protein [Mass/volume] in Serum or Plasma Ordered By: Magdy Douglass on 40-33-7295YEY [Mass/Vol]2.5 mg/dL0.0-0.5 [facility] Medical CenterLactate [Moles/volume] in Serum or Plasma Ordered By: Magdy Douglass on 76-29-4842Ditebrq [Moles/Vol]0.6 mmol/L0.5-2.2 [facility] Medical CenterMagnesium [Mass/volume] in Serum or Plasma Ordered By: Magdy Douglass on 77-36-0020Fenvxjfek [Mass/Vol]2.1 mg/dL1.9-2.7 [facility] Medical CenterTroponin I.cardiac [Mass/volume] in Serum or Plasma by Detection limit <= 0.01 ng/Ordered By: Janae Jose on 05-02-2024 Troponin I.cardiac DL <= 0.01 ng/mL [Mass/Vol]74.8 pg/mL0.0-20.0[facility] Medical CenterComment on above:Critical Result : Called to and read back by: JAYLAN YAO at: 05/02/2024 15:02:51 by:GABACETAMINOPHENon 11-24-2022 Acetaminophen [Mass/Vol]ug/nCWrgzma91.0-30.0The [facility] HospitalComment on above:Performed By: #### SALYC, ACET, CMP, ETH #### [facility] [address] [place] [address] Dr. Renny West AUTO DIFFon 31-79-9144AHDG #0.0 103/ulNormal0.0-0.1The [facility] Valley HospitalComment on above:Performed By: #### CBC #### [facility] [address] [address] [address] Renny Yousifsophils/100 WBC (Bld)0.8 %Normal0.2-2.0The [facility] Comment on above:Performed By: #### CBC #### [facility] [address] [place] [address] Dr. Renny Triplett #0.3 103/ulNormal0.0-0.7The [facility] HospitalComment on above: Performed By: #### CBC #### [facility] [address] [address] [address] Renny Rinaldiosinophils/100 WBC (Bld)6.2 %Normal0.9-7.0The [facility] Comment on above:Performed By: #### CBC #### [facility] [address] [place] [address] Dr. Renny Rinaldirythrocyte distribution width (RBC) [Ratio]14.8 %Gavuop40.0-15.0 [facility] Hospital - CincinnatiComment on above:Performed By: #### CBC #### [facility] [address] [place] [address] Dr. Renny AzevedoHematocrit (Bld) [Volume fraction]38.6 %Critically low42.0-54.0 The [facility] Valley HospitalComment on above:Performed By: #### CBC #### [facility] [address] [place] [address] Dr. Renny AzevedoHemoglobin (Bld) [Mass/Vol]12.6 g/dLCritically low14.0-18.0The [facility] HospitalComment on above:Performed By: #### CBC #### [facility] [address] [place] [address] Dr. Renny Pa #0.01 10e3/ulNormal0.00-0.03The [facility] HospitalComment on above:Performed By: #### CBC #### [facility] [address] [place] [address] Dr. Renny Pa %0.2 %Normal0.0-0.5The [facility]tering Health Daytonment on above: Performed By: #### CBC #### [facility] [address] [place] [address] Dr. Renny ClarosH #1.4 103/ulNormal1.2-3.8The [facility] HospitalComment on above:Performed By: #### CBC #### [facility] [address] [place] [address] Dr. Renny Reedmphocytes/100 WBC (Bld)28.1 %Eaoywn64.5-60.0The [facility] HospitalComment on above:Performed By: #### CBC #### [facility] [address] [address] [address] Renny Geronimo DIFF REQNONormalThe [facility] HospitalComment on above: Performed By: #### CBC #### [facility] [address] [place] [address] Dr. Renny Emerson (RBC) [Entitic mass]31.0 pyEqhnbm84.9-34.0The [facility] HospitalComment on above:Performed By: #### CBC #### [facility] [address] [place] [address] Dr. Renny Emerson (RBC) [Mass/Vol]32.6 g/xZNdfsyv38.9-35.2The [facility] HospitalComment on above:Performed By: #### CBC #### [facility] [address] [place] [address] Dr. Renny Emerson (RBC) [Entitic vol]95.1 fLCritically high80.0-94.0The [facility] HospitalComment on above:Performed By: #### CBC #### [facility] [address] [place] [address] Dr. Renny Cook #0.3 103/ulNormal0.3-0.8The [facility] Valley HospitalComment on above:Performed By: #### CBC #### [facility] [address] [place] [address] Dr. Renny Calvilloocytes/100 WBC (Bld)5.8 %Normal1.7-12.0The [facility] Comment on above:Performed By: #### CBC #### [facility] [address] [place] [address] Dr. Renny Guaman #3.0 103/ulNormal1.4-6.5The [facility] HospitalComment on above:Performed By: #### CBC #### [facility] [address] [place] [address] Dr. Renny Chanutrophils/100 WBC (Bld)58.9 %Fgpolo76.0-75.0[facility] - CincinnatiComment on above:Performed By: #### CBC #### [facility] [address] [address] [address] Renny AzevedoPlatelet mean volume (Bld) [Entitic vol]8.8 fLCritically low 9.5-13.5The [facility] HospitalComment on above:Performed By: #### CBC #### [facility] [address] [place] [address] Dr. Renny AzevedoPLT260 103/geOcsqyq833-311Xql [facility] HospitalComment on above: Performed By: #### CBC #### [facility] [address] [place] [address] Dr. Renny AzevedoRBC4.06 106/ulCritically low4.70-6.10The [facility] HospitalComment on above:Performed By: #### CBC #### [facility] [address] [place] [address] Dr. Renny AzevedoWBC5.0 103/ulNormal4.0-11.0The [facility] HospitalComment on above: Performed By: #### CBC #### [facility] [address] [place] [address] Dr. Renny AzevedoCT CSPINE WO CONon [id number] JOSE WO CONEXAM: CT LISINE WO CON [...] Electronically authenticated by: VIC ADAMES Date: 2022-11-24 05:42[facility] HospitalCT FACIAL BONES WO CONon [id number] FACIAL BONES WO CON EXAMINATION: CT HEAD [...] Electronically authenticated by: ANNA RICO Date: 2022-11-24 05:43[facility] HospitalDRUG SCREEN RAPID (URINE)on [id number] NEGATIVESelect Medical Specialty Hospital - CincinnatiComment on above:Performed By: #### DRUGRPD #### [facility] [address] [place] [address] Dr. Renny AzevedoBARNegativeNormalNEGATIVESelect Medical Specialty Hospital - CincinnatiComment on above: Performed By: #### DRUGRPD #### [facility] [address] [place] [address] Dr. Renny AzevedoBUPNegativeNormalNEGATIVESelect Medical Specialty Hospital - CincinnatiComment on above: Performed By: #### DRUGRPD #### [facility] [address] [place] [address] Dr. Renny AzevedoBZONegativeNormalNEGATIVESelect Medical Specialty Hospital - CincinnatiComment on above: Performed By: #### DRUGRPD #### [facility] [address] [place] [address] Dr. Renny LittlejohnCPositiveAbssm depaul health centeralNEGATIVESelect Medical Specialty Hospital - CincinnatiComment on above: Performed By: #### DRUGRPD #### [facility] [address] [place] [address] Dr. Renny MorrisonElyria Memorial HospitalComment on above: Result Comment: AMP (Amphetamine): 500ng/mL, BAR (Barbituates): 200 ng/mL, BZO (Benzodiazepines): 150 ng/mL, BUP (Buprenorphine): 10 ng/mL, SHAYE (Cocaine): 150 ng/mL, mAMP (Methamphetamine): 500 ng/mL, MTD (Methadone): 200 ng/mL, OPI (Opiates): 100 ng/mL, OXY (Oxycodone): 100 ng/mL, PCP (Phencyclidine): 25 ng/mL, PPX (Propoxyphene): 300 ng/mL, THC (Cannabinoids): 50 ng/mL, TCA (Trycyclic Antidepressants): 300 ng/mLPerformed By: #### DRUGRPD #### [facility] [address] [place] [address] Dr. Renny AzevedoDRUG CUT HEADERDRUG CLASS TEST SYSTEM CUT-OFF CONCENTRATIONS ARE FOLLOWS:NormalThe [facility] HospitalComment on above:Performed By: #### DRUGRPD #### [facility] [address] [place] [address] Dr. Renny AzevedomAMPPositiveAbnormalNEGATIVESelect Medical Specialty Hospital - CincinnatiComment on above:Performed By: #### DRUGRPD #### [facility] [address] [place] [address] Dr. Renny AzevedoMTDNegativeNormalNEGATIVESelect Medical Specialty Hospital - CincinnatiComment on above: Performed By: #### DRUGRPD #### [facility] [address] [place] [address] Dr. Renny AzevedoOPINegativeNormalNEGATIVESelect Medical Specialty Hospital - CincinnatiComment on above: Performed By: #### DRUGRPD #### [facility] [address] [place] [address] Dr. Renny AzevedoOXYNegativeNormalNEGATIVESelect Medical Specialty Hospital - CincinnatiComment on above: Performed By: #### DRUGRPD #### [facility] [address] [place] [address] Dr. Renny AzevedoPCPNegativeNormalNEGATIVESelect Medical Specialty Hospital - CincinnatiComment on above: Performed By: #### DRUGRPD #### [facility] [address] [place] [address] Dr. Renny AzevedoPPXNegativeNormalNEGATIVESelect Medical Specialty Hospital - CincinnatiComment on above: Performed By: #### DRUGRPD #### [facility] [address] [place] [address] Dr. Renny AzevedoTCANegativeNormalNEGATIVESelect Medical Specialty Hospital - CincinnatiComment on above: Performed By: #### DRUGRPD #### [facility] [address] [place] [address] Dr. Renny LouisegativeNormalNEGATIVEThe Kettering Health Daytonment on above: Performed By: #### DRUGRPD #### [facility] [address] [place] [address] Dr. Renny Cooper (BLD ALC)on [id number] NOTENOTE: 80 mg/dl is the legal limit for a blood alcohol levelNoAdena Regional Medical CenterComment on above: Performed By: #### ETH #### [facility] [address] [place] [address] Dr. Renny Stevensonanol [Mass/Vol]169 mg/dLNoAdena Regional Medical CenterComment on above:Performed By: #### ETH #### [facility] [address] [place] [address] Dr. Renny Laura NOTENOTE: 80 mg/dl is the legal limit for a blood alcohol levelNoAdena Regional Medical CenterComment on above:Performed By: #### SALYC, ACET, CMP, ETH #### [facility] [address] [place] [address] Dr. Renny Stevensonanol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 13:05-0500 Heart rate87 /minDavid Degroh DO Work Phone: 1(219)672-[address] [place], [place] 1476001-06-2025 13:05-0500 Respiratory rate18 /minDavid Degroh DO Work Phone: 1(758)092-[facility]01-06-2025 13:05-0500 SaO2% (BldA) [Mass fraction]100 %Sulaiman Degroh DO Work Phone: 1(291)994-[address] [place], [place] 1476001-06-2025 13:05-0500 Systolic blood jmtinjba548 mm[Hg]Sulaiman Degroh DO Work Phone: 1(697)64305 [address]01-06-2025 08:03-0500 Body icvrwwfklri98.9 [degF]Sulaiman Degroh DO Work Phone: 1(742)[address]01-06-2025 00:00-0500 Inhaled oxygen flow rate2 L/Ianavid Degroh DO Work Phone: 1(293)[address]01-05-2025 08:50-0500 Body .88 cmDavid Degroh DO Work Phone: 1(931)[address]01-05-2025 08:50-0500 Body dacpbh97.7 kgDavid Degroh DO Work Phone: 1(405)64105 [address]06-24-2024 14:25-0400 Body msgomqjrivh46 [degF]DO Sulaiman Degroh Work Phone: 1(058)063-[address] [place], [place] 1476006-24-2024 14:25-0400 Diastolic blood qiaxwheo64 mm[Hg]DO Sulaiman Degroh Work Phone: 1(758)201-[address] [place], [place] 1476006-24-2024 14:25-0400 Heart rate64 /minDO Sulaiman Degroh Work Phone: 1(055)695-[address] [place], [place] 1476006-24-2024 14:25-0400 Respiratory rate19 /minDO Sulaiman Degroh Work Phone: 1(882)064-[address] [place], [place] 1476006-24-2024 14:25-0400 SaO2% (BldA) [Mass fraction]93 %DO Sulaiman Degroh Work Phone: 1(581)261-[facility]06-24-2024 14:25-0400 Systolic blood iflfscrx226 mm[Hg]DO Sulaiman Degroh Work Phone: 1([phone]06-24-2024 07:34-0400 Inhaled oxygen flow rate2 L/minDO Sulaiman Feldman Work Phone: [facility]06-24-2024 06:00-0400 Body zfapau18.7 kgDO Sulaiman Feldman Work Phone: [facility]06-22-2024 01:00-0400 Inhaled oxygen adimrvucodcgb97 %DO Sulaiman Feldman Work Phone: [facility]06-20-2024 11:24-0400 Body poakob794.88 cmDO Sulaiman Giraldo Work Phone: [facility] Encounters Encounter DateEncounter TypeCare ProviderFacilityStart: 28-19-6045Mbu-patient / Non-visitLarry E Kodi Perez -[facility] Work Phone: Start: 54-03-9999Jhr-patient / Non-visitChristopher E Raina ME-[facility] Pulmonary Work Phone: Start: 07-31-2025 End: 05-48-3608Oelcyaqyfb and management of inpatientKristopher Lindbloo Facility:[facility]: 91-33-3137Ruj-patient / Non-visitAdam Rachelle -[facility] Neurology Work Phone: Start: 07-31-2025 End: 19-50-8726cuqrsrjcraPfjem Rudy Feldman DO Work Phone: [facility] Work Phone: Start: 07-31-2025 End: 31-60-0781Rqsiuwjp Adrianna Peng DO-[facility] Start: 06-07-2025 End: 09-62-2727fywdovopzbHLMZZNLKF LANGSHAWFacility:METROHealthStart: 06-07-2025 Non-patient / Non-visitDerek Wai Oglesby -[facility] Work Phone: Start: 06-07-2025 End: 76-54-7189Xvnfbmtojy and management of inpatientKatherine Sciarappa Facility:[facility]: 66-55-7935Aks-patient / Non-visitDavid Degroh DO Work Phone: [facility] Work Phone: Start: 11-18-2024 End: 61-02-9007Ayjxrrossn and management of inpatientDavid Degroh DO Work Phone: [facility] [place] [facility] Work Phone: Start: 11-17-2024 End: 65-29-5440Shhkzbsng department patient visitNO PCP NO [facility] PPGStart: 59-16-7519Gqzrawdzxf and management of inpatientDavid Degroh DO Work Phone: [facility] [place] [facility] Work Phone: Start: 59-51-1729fvackrrvvcv encounterDavid L Degroh DO Work Phone: [facility] Work Phone: Start: 07-14-2024 End: 49-35-0812Jaqadclbyn and management of inpatientAHMED B YOAVIsamar [facility]red Hospitaltart: 64-55-3586Exc-patient / Non-visitDO Sulaiman Feldman Work Phone: [facility] Work Phone: Start: 84-63-4212Mtr-patient / Non-visitDO Sulaiman Feldman Work Phone: [facility] Work Phone: Start: 05-01-2024 End: 52-56-8672Uhzcahejjb and management of inpatientDO Sulaiman Feldman Work Phone: [facility] [place] [facility] Work Phone: Start: 11-24-2022 End: 38-60-9968jjpwkijkxmCV NONE LISTED REQUESTFacility:A4Vyaqz: 10-14-2018 End: 50-37-7887Acikhzwpc department patient visitMervera Manzanares HospitalStart: 01-29-2018 End: 10-84-3151Qlhzqhtwgw and management of inpatientSREEKANTH V INDURTIMercy Carteret HospitalStart: 09-29-2017 End: 47-63-1744Txxbnyzrg department patient visitNone ProviderFacility:[facility] HospitalStart: 06-07-2017 End: 59-67-7630Rbrwoyzuy department patient visitLutheran HospitalStart: 05-27-2017 End: 53-13-0842Avzvoywbf department patient visitLutthe [facility] Procedures DateProcedureProcedure DetailPerforming ClinicianStart: 75-32-6634Utgge culture Sulaiman Degkrystyna DO Work Phone: Start: 64-45-5297DKB of headDavid Degroh DO Work Phone: Start: 71-29-5855Ftbhv chest X-rayDavid Degroh DO Work Phone: Start: 79-44-4557BU angiography of headDavid Degroh DO Work Phone: Start: 22-14-7106GL angiography of neck vesselsDavid Degroh DO Work Phone: Start: 82-87-7686HV of head without contrastDavid Degroh DO Work Phone: Start: 91-92-2589VP of head without contrastDO Sulaiman Feldman Work Phone: Start: 52-54-0866Lueia chest X-rayDO Sulaiman Feldman Work Phone: Start: 27-42-2721Qi lumbar spine w/o contrast material Start: 92-88-3315VQ OPIOID CONTAINING MEDICATIONSStart: 10-13-0908CYFDRXCCG PATIENTSREEKANTH INDURTIStart: 52-77-4193EOK 12-LEADSREEKANTH INDURTIStart: 53-83-5539ODQ WITH AUTO DIFFERENTIALSREEKANTH INDURTIStart: 01-30-2018 COMPREHENSIVE METABOLIC PANELSREEKANTH INDURTIStart: 95-75-3883Nvpgc panel ELIAN INDURTIStart: 01-98-5963T3BYTVSSBLT INDURTIStart: 23-60-3937H6 ELIAN INDURTIStart: 26-13-5453PIL WITH REFLEXSREEKANTH INDURTIStart: 90-11-3080JO W/REFLEX CULTURESREEKANTH INDURTIStart: 80-68-2187UNFZQ DRUG SCREEN ELIAN INDURTIStart: 81-45-0829EL CONSULT TO HISTORY AND PHYSICALSREEKANTH INDURTIStart: 28-44-2538ODNEBTQLMLXLK NURSING CARE ORDER (SPECIFY)ELIAN INDURTIStart: 21-85-8689GEBTN SIGNSSREEKANTH INDURTIStart: 82-54-2885WBAV CODE ELIAN INDURTIStart: 14-40-5937FAMGPKM STATUS (DIRECT)ELIAN INDURTIStart: 39-34-3918ACIV GENERALSREEKANTH INDURTI Plan of Treatment DateCare ActivityDetailAuthorStart: 94-15-0889GczsoazppW[facility]-Pat[facility] Medical Center Start: 62-01-0713Xaedugli to palliative care physicianClinton Memorial Hospitaltart: 48-71-2162Vjesgsmx to psychiatristClinton Memorial Hospitaltart: 78-38-0479HjemtbtkrcmiShwxdofdlClinton Memorial Hospitaltart: 08-11-2025 End: 28-96-2958ZggskomztClinton Memorial Hospitaltart: 33-99-4155LH Chest Single viewClinton Memorial Hospitaltart: 85-69-3030TjjtwrnovClinton Memorial Hospitaltart: 38-31-6887YW Chest Single [facility]: 57-17-5845RuxdxnqdoClinton Memorial Hospitaltart: 10-28-4460QU Chest Single [facility] Hospitaltart: 76-75-5740FfzhfcufrClinton Memorial Hospitaltart: 54-68-2860LU Chest Single [facility]tart: 64-37-5803KdmoficcmGood Samaritan Hospital CenterStart: 69-35-2152TR Chest Single viewGood Samaritan Hospital CenterStart: 08-06-2025 [facility] CenterStart: 03-35-3121VJ Chest Single viewGood Samaritan Hospital CenterStart: 21-36-8007LxbxvftgvGood Samaritan Hospital CenterStart: 10-35-2487RU Chest Single viewGood Samaritan Hospital CenterStart: 2025 [facility] CenterStart: 96-12-5487WX Chest Single viewGood Samaritan Hospital CenterStart: 38-10-1660SxwahwjycGood Samaritan Hospital CenterStart: 78-38-8175QevatenunGood Samaritan Hospital CenterStart: 97-43-7136ImpagxelgGood Samaritan Hospital CenterStart: 92-97-6859LyosixacfGood Samaritan Hospital CenterStart: 43-60-1042Bjbwfznrss procedureGood Samaritan Hospital CenterStart: 07-31-2025 Urine cultureClinton Memorial Hospitaltart: 09-50-0770Ydctqwqq to neurologDiley Ridge Medical Centertart: 19-00-1395Xbxuycjfsjt of substanceClinton Memorial Hospitaltart: 07-31-2025 End: 65-26-9287AqjdzgmmeGood Samaritan Hospital CenterStart: 77-51-6908Fubgwhyrplaw [facility] CenterStart: 83-83-6543Vrrvmckq admissionGood Samaritan Hospital CenterStart: 17-52-9845Wjrejkld to cardiologistGood Samaritan Hospital CenterStart: 21-08-0808Vzdcojze identified in Urine by Culture Urine CultureGood Samaritan Hospital CenterStart: 01-48-0366Fbuzs culture [facility] CenterStart: 02-03-8681CudhnkgejGood Samaritan Hospital CenterStart: 25-09-7658GsdkdpsptGood Samaritan Hospital CenterStart: 06-10-2025 [facility] CenterStart: 76-41-1753NfnrodesmGood Samaritan Hospital CenterStart: 81-68-3884Dfuqhejvxv procedureW[facility]-Pat[facility] Medical Center Start: 15-20-2493Iksdcueh to neurologDiley Ridge Medical Centertart: 06-07-2025 End: 44-07-5431BxtzljwvgClinton Memorial Hospitaltart: 11-14-7851Aqsxuhrhuwbm [facility] Hospitaltart: 13-77-1953Mmegrdin admissionClinton Memorial Hospitaltart: 52-81-2820Mbjgulvq to cardiac rehabilitation programClinton Memorial Hospitaltart: 69-80-5946JyvfyhqgpClinton Memorial Hospitaltart: 65-97-2921Iwlckemmfm procedureClinton Memorial Hospitaltart: 88-68-3349AKX of headMR head/brain wo/w [facility] Systemtart: 27-57-4214CvivwlmzhClinton Memorial Hospitaltart: 37-83-4063Btjzlxngeu procedureClinton Memorial Hospitaltart: 11-17-2024 [facility]tart: 17-35-2645Nrbskxtt to maintenance man [facility]tart: 81-76-5412Iwehwkkk therapy procedure [facility] Hospitaltart: 32-47-7624Cfhufeuw to occupational therapistClinton Memorial Hospitaltart: 79-12-8095Ubsoxmrx to speech and language therapy serviceClinton Memorial Hospitaltart: 11-17-2024 Referral to neurologistClinton Memorial Hospitaltart: 11-17-2024 Hospital admissionClinton Memorial Hospitaltart: 96-21-6503HvoaqlnylClinton Memorial Hospitaltart: 64-75-2566Hkbfkdxltelk consultation with patient [facility]tart: 49-22-7225PadyrjepeClinton Memorial Hospitaltart: 57-27-5457Drfkfjlv to rehabilitation physicianClinton Memorial Hospitaltart: 37-55-1668Jwswtwlxtknayz of prophylactic treatmentClinton Memorial Hospitaltart: 54-70-8290NdpnurzkrClinton Memorial Hospitaltart: 02-44-8694VsahumgubqulPriksvuxmClinton Memorial Hospitaltart: 05-01-2024 Hospital admissionWright-Patterson Medical CenterAmphetamines [Presence] in Urine by Screen methodWright-Patterson Medical CenterAnion gap measurement [facility] CenterBarbiturates [Presence] in Urine by Screen methodWright-Patterson Medical CenterBasophils [#/volume] in Blood by Automated countWright-Patterson Medical CenterBasophils/100 leukocytes in Blood by Automated [facility] HospitalBenzodiazepines [Presence] in UrineWright-Patterson Medical CenterBenzoylecgonine [Presence] in UrineWright-Patterson Medical CenterCannabinoids [Presence] in Urine by Screen [facility] HospitalDrugs identified in UrineWright-Patterson Medical CenterEosinophils/100 leukocytes in Blood by Automated count [facility] CenterErythrocyte distribution width [Ratio] by Automated [facility] HospitalErythrocytes [#/volume] in Blood [facility] CenterGlomerular filtration rate [Volume Rate/Area] in Serum, Plasma or Blood by CreatinineWright-Patterson Medical Center Hematocrit [Volume Fraction] of BloodWright-Patterson Medical CenterHemoglobin [Mass/volume] in BloodWright-Patterson Medical CenterLegionella pneumophila Ag [Presence] in UrineWright-Patterson Medical CenterLeukocytes [#/volume] corrected for nucleated erythrocytes in Blood by Automated counWright-Patterson Medical CenterLeukocytes [#/volume] in BloodWright-Patterson Medical CenterLymphocytes [#/volume] in Blood by Automated countWright-Patterson Medical CenterLymphocytes/100 leukocytes in Blood by Automated [facility] HospitalMCH [Entitic mass] by Automated countWright-Patterson Medical CenterMCHC [Mass/volume] by Automated [facility] HospitalMCV [Entitic volume] by Automated [facility] Monocytes [#/volume] in Blood by Automated countWright-Patterson Medical CenterMonocytes/100 leukocytes in Blood by Automated countWright-Patterson Medical CenterNeutrophils [#/volume] in Blood by Automated countWright-Patterson Medical CenterNeutrophils/100 leukocytes in Blood by Automated count [facility] CenterNucleated erythrocytes [Presence] in Blood by Automated [facility] HospitalOpiates [Presence] in Urine [facility] CenterPatient EducationAultman Alliance [facility] Work Phone: [facility] referralGood [facility] Work Phone: Phencyclidine [Presence] in UrineWright-Patterson Medical CenterPlatelet mean volume [Entitic volume] in Blood by Automated count [facility] CenterPlatelets [#/volume] in BloodClinton Memorial Hospitalpecimen source [Identifier] of Unspecified specimenClinton Memorial Hospitaltreptococcus pneumoniae Ag [Presence] in Unspecified specimenWright-Patterson Medical CenterThiamine [Moles/volume] in Blood [facility] CenterThyroglobulin Ab [Units/volume] in Serum or PlasmaWright-Patterson Medical CenterThyroperoxidase Ab [Units/volume] in Serum or PlasmaJackson [facility] Payers DatePayer CategoryPayerPolicy [id number] 2025Self-pay [id number] [id number] [id number] [id number] [id number] 2..1.790454.3.57[id number] 2..1.097403.3.57[id number] 2.0.1.689352.3.57[id number] 2.0.1.372355.3.57[id number] 2.0.1.509092.3.579.2.732MedicaidMedicaid Out of [id number] [facility] [id number] 2.16.840.1.0[id number] 2.16.840.1.988002.3.579.2.531 [id number] 2.16.840.1.9[id number] 2.16.840.1.387463.3.579.2.531 Social History DateTypeDetailFacilityStart: 05-06-2024 End: 38-88-0760Ifkhilb smoking status NHISCurrent Heavy tobacco smokerClinton Memorial Hospitaltart: 01-90-1668Ggg [facility]: 11-18-2024 End: 05-16-4914PwwWcej (finding)Clinton Memorial Hospitaltart: 11-18-2024 End: 13-49-0233Zjxiacb smoking status NHISUnknown if ever smokedClinton Memorial Hospitaltart: 20-71-9212DVDP Follow upSDOH Follow upSelect [facility] Work Phone: Medical Equipment Procedure CodeEquipment CodeEquipment Original TextEquipment IdentifierDatesCL STENT XENIA FRONTIER 4.0 X 30FDAStart: 53-19-1022MC STENT XENIA FRONTIER 4.0 X 30 FDAStart: 06-07-2025 Goals DatePatient GoalDesired Activity/State Functional Status LdusRoywuteaicRjqsdeDvotlrfx27-19-0142Tesyrdhemn statusPatient at Baseline [facility] Work Phone: [phone]yjgv statusPatient at Baseline [facility] Work Phone: Mental Status TyngRwedhfjmwsLhztvhMrerltuc94-00-0317Yvtspdmre functionCognitive Status Patient at BaselineSelect [facility] Work Phone: 1(260) 465-831406178560-56-3591Kzyccptzw functionCognitive Status [facility] Work Phone: Clinical Notes 05-02-2024 to 06-07-2025 Note Date & ZjmfMvarGwlpzxlt68-68-8585 Evaluation note* Diagnosis Onset Date Resolution Status Admit Date History of seizure disorder acuteJuly 2024 8:22amPolysubstance abuseacuteJuly 2024 8:22amST elevation myocardial infarction (STEMI) of inferior wallacuteJuly 2024 8:22am [facility] Work Phone: 1(846) 646-320407-26-2025 Evaluation note* Diagnosis Onset Date Resolution Status [...] 7:25pmElevated troponinresolvedSeptember 2024 7:25pm SeizureresolvedSeptember 2024 7:25pm [facility] Work Phone: 1([phone]) 357-343007-26-2025 Evaluation note* Diagnosis Onset Date Resolution Status [...] 2024 7:25pmElevated troponinresolvedSeptember 2024 7:25pmSeizureresolvedSeptember 2024 7:25pm [facility] Work Phone: 1([phone] 788-596601-08-2025 Progress note Author Yamila Donald [facility] Medical CenterNote Date/TimeJanuary 2024 7:21[place] [address] Hospitalist Progress Note Signed Patient: Aaron Olivarez MR#: [id number] : 1960 Acct:[id number] Age/Sex: 64 / M Adm Date: 5 Loc: Room: [address] [place] [address] Type: ADM IN Attending Dr: Yamila Donald [...] signed by Yamila Donald MD> 11/20/24 192 [facility] Work Phone: 1(571) 190-938401-08-2025 Progress noteTim[place] 2962270 Hospitalist Progress Note Signed Patient: Aaron Olivarez MR#: [id number] : 1960 Acct:[id number] Age/Sex: 64 / M Adm Date: 5 Loc: Room: [address] [place] [address] Type: ADM IN Attending Dr: Yamila Donald [...] Donald MD 11/20/24 1723 Signed By: 11/20/241920 [facility]01-08-2025 Progress note Author Yamila Donald [facility] Medical CenterNote Date/TimeJanuary 2024 3:02[place] [address] Hospitalist Progress Note Signed Patient: Aaron Olivarez MR#: [id number] : 1960 Acct:[id number] Age/Sex: 64 / M Adm Date: 5 Loc: 4C Room: 6T0987-0 Type: ADM IN Attending Dr: Yamila Donald [...] Plan Documented By: Yamila Donald MD 11/19/24 1041 Signed By: <Electronically signed by Yamila Donald MD> 11/20/24 0301 [facility] Work Phone: 1(175) 303-403001-08-2025 [place] [address] Hospitalist Progress Note Signed Patient: Aaron Olivarez MR#: [id number] : 1960 Acct:[id number] Age/Sex: 64 / M Adm Date: 5 Loc: Room: [address] [place] [address] Type: ADM IN Attending Dr: Yamila Donald [...] Donald MD 11/19/242100 Signed By: 11/20/24 0302 [facility]01-07-2025 Progress note Author Neville Bush [facility] Medical CenterNote Date/TimeJanuary 2024 6:02pm[place] [address] Neurology Progress Note Signed Patient: Aaron Olivarez MR#: [id number] : 1960 Acct:[id number] Age/Sex: 64 / M Adm Date: 5 Loc: Room: [address] [place] [address] Type: ADM IN Attending Dr: Yamila Donald [...] <Electronically signed by Neville Bush DO> 11/19/24 6258 [facility] Work Phone: 1(523) 286-620301-07-2025 [place] [address] Neurology Progress Note Signed Patient: Aaron Olivarez MR#: [id number] : 1960 Acct:[id number] Age/Sex: 64 / M Adm Date: 5 Loc: Room: [address] [place] [address] Type: ADM IN Attending Dr: Yamila Donald [...] DO 11/19/24 1759 Signed By: 11/19/24 1802 [facility]01-07-2025 Progress note Author Yamila Donald [facility] Medical CenterNote Date/TimeJanuary 2024 3:10am[place] [address] Hospitalist Progress Note Signed Patient: Aaron Olivarez MR#: [id number] : 1960 Acct:[id number] Age/Sex: 64 / M Adm Date: 5 Loc: Room: [address] [place] [address] Type: ADM IN Attending Dr: Yamila Donald [...] Lactated Ringers IV 11/18/24 17:34 70 mls/hr .[id number] CORBY Administration Levetiracetam 500 mg/ Dextrose 105 [...] Yamila Donald MD> 11/19/24 0310 [facility] Work Phone: 1([phone]) 731-286701-07-2025 [place] [address] Hospitalist Progress Note Signed Patient: Aaron Olivarez MR#: [id number] : 1960 Acct:[id number] Age/Sex: 64 / M Adm Date: 5 Loc: Room: [address] [place] [address] Type: ADM IN Attending Dr: Yamila Donald [...] Lactated Ringers IV 11/18/24 17:34 70 mls/hr .[id number] CORBY Administration Levetiracetam 500 mg/ Dextrose 105 [...] MD 11/18/24 1646 Signed By: 11/19/24 0310 [facility]01-06-2025 Consult note Author Neville Bush [facility] Medical CenterNote Date/TimeJanuary 2024 5:44pm[place] [address] Neurology Consult Note Signed Patient: Aaron Olivarez MR#: [id number] : 1960 Acct:[id number] Age/Sex: 64 / M Adm Date: 5 Loc: Room: [address] [place] [address] Type: ADM IN Attending Dr: Yamila Donald MD Copies to: DO Sulaiman Mosquera DO Marwan Wassouf, MD~ HPI Consult Date: 11/18/24 Operations Research Analyst: Neville Bush DO [facility] Medical History Heavy smoker Heroin use H/O ETOH abuse COPD (chronic obstructive pulmonary disease) Social History Smoking Status: Unknown if ever smoked Substance Use Type: Marijuana, Heroin and Methamphetamine Social History Comments: Moved [place] to [place] to live with sonLamin. Meds Medications and [...] Dung Chakraborty M.D.11/17/2024 1:26 PM Dictation Location: [facility]--17 Assessment/Plan (1) Seizure: Plan CONSULT REASON: [...] <Electronically signed by Neville Bush DO> 11/18/24 2348 [facility] Work Phone: 1([phone] 867-382801-06-2025 Consult note Author Julito Mosley [facility] CenterNote Date/TimeJanuary 2024 4:27pm[place] [address] Cardiology Consult Note Signed Patient: Aaron Olivarez MR#: [id number] : 1960 Acct:[id number] Age/Sex: 64 / M Adm Date: 5 Loc: Room: [address] [place] [address] Type: ADM INOo Attending Dr: Yamila Donald [...] noted below or in HPI [facility] Medical History Heavy smoker Heroin use H/O ETOH abuse COPD (chronic obstructive pulmonary disease) Social History Smoking Status: Unknown if ever smoked Substance Use Type: Marijuana, Heroin and Methamphetamine Social History Comments: Moved from [place] to [place] to live with son, Lamin. Meds Medications [...] x10E3/uL Lymph # (Auto) 1.4 (1.00-4.8) x10E3/uL [place] # (Auto) 0.6 (0.0-0.8) x10E3/uL Eos # [...] @ 70 1000 / 1000 mls/hr IV .[id number] [facility] Rx#: [id number] levETIRAcetam 500 mg In 105 / 105 Dextrose 5 % in Water 100 ml @ 420 mls/hr IV BID [facility] Rx#: [id number] Output: Urine 500 / 500 Other: # [...] Julito Mosley MD> 11/18/24 1627 [facility] Work Phone: 1(219) 178-604801-06-2025 [place] [address] Neurology Consult Note Signed Patient: Aaron Olivarez MR#: [id number] : 1960 Acct:[id number] Age/Sex: 64 / M Adm Date: 5 Loc: Room: [address] [place] [address] Type: ADM IN Attending Dr: Yamila Donald MD Copies to: DO Sulaiman Mosquera DO Marwan Wassouf, MD~ HPI Consult Date: 11/18/24 Operations Research Analyst: Neville Bush DO [facility] Medical History Heavy smoker Heroin use H/O ETOH abuse COPD (chronic obstructive pulmonary disease) Social History Smoking Status: Unknown if ever smoked Substance Use Type: Marijuana, Heroin and Methamphetamine Social History Comments: Moved from [place] to [place] to live with sonLamin. Meds Medications and [...] Dung Chakraborty M.D.11/17/2024 8:59 AM Dictation Location: [facility]- Chest X-Ray 11/17/24 12:57 IMPRESSION: No acute cardiopulmonary pathology. Impression dictated by: Dung Chakraborty M.D.11/17/2024 1:26 PM Dictation Location: [facility]--17 Assessment/Plan (1) Seizure: Plan CONSULT REASON: [...] Bush DO 11/18/241737 Signed By: 11/18/24 1744 [facility]01-06-2025 [place] [address] Cardiology Consult Note Signed Patient: Aaron Olivarez MR#: [id number] : 1960 Acct:[id number] Age/Sex: 64 / M Adm Date: 5 Loc: Room: [address] [place] [address] Type: ADM INOo Attending Dr: Yamila Donald [...] noted below or in HPI [facility] Medical History Heavy smoker Heroin use H/O ETOH abuse COPD (chronic obstructive pulmonary disease) Social History Smoking Status: Unknown if ever smoked Substance Use Type: Marijuana, Heroin and Methamphetamine Social History Comments: Moved from [place] to [place] to live with son, Lamin. Meds Medications [...] x10E3/uL Lymph # (Auto) 1.4 (1.00-4.8) x10E3/uL [place] # (Auto) 0.6 (0.0-0.8) x10E3/uL Eos # [...] @ 70 1000 / 1000 mls/hr IV .[id number] [facility] Rx#: [id number] levETIRAcetam 500 mg In 105 / 105 Dextrose 5 % in Water 100 ml @ 420 mls/hr IV BID [facility] Rx#: [id number] Output: Urine 500 / 500 Other: # [...] MD 05/07 1612 Signed By: 11/18/24 1627 [facility]01-06-2025 Evaluation note* Diagnosis Onset Date Resolution Status Admit Date Acute CVA (cerebrovascular accident) acuteJanuary 2024 1:02pmAltered mental statusacuteJanuary 2024 1:02pm SeizureacuteJanuary 2024 1:02pmT wave inversion in EKGacuteJanuary 2024 1:02pm [facility] Work Phone: 1(737) 825-303601-05-2025 Progress note Author Chaz Frey [facility] CenterNote Date/TimeJanuary 2024 2:[address] [address] Progress Note Signed Patient: Aaron Olivarez MR#: [id number] : 1960 Acct:[id number] Age/Sex: 64 / M Adm Date: 5 Loc: Room: [address] [place] [address] Type: ADM INOo Attending Dr: Chaz Frey [...] signed by Chaz Frey MD> 11/17/24 1400 [facility] Work Phone: 1([phone] 380-317501-05-2025 History and physical note Author Chaz Frey [facility] CenterNote Date/TimeJanuary 2024 1:11pm[place] [address] Hospitalist H&P Signed Patient: Aaron Olivarez MR#: [id number] : 1960 Acct:[id number] Age/Sex: 64 / M Adm Date: 5 Loc: Room: [address] [place] [address] Type: ADM INOo Attending Dr: Chaz Frey [...] was made not to transfer him to [facility] for thrombectomy. On-call stroke team recommended [facility] to [facility] for neurological andseizure workup with [...] stroke before or seizure history. [facility] Medical History Heavy smoker Heroin use H/O ETOH abuse COPD (chronic obstructive pulmonary disease) Social History Smoking Status: Heavy tobacco smoker Social History Comments: Moved from [place] to [place] to live with son, Lamin. Meds Medications [...] % (Auto) 4.4 % (.) 11/17/24 08: Bullitt % (Auto) 3.3 % (.) 11/17/24 08: Eos % (Auto) 0.1 % (.) 11/17/24 08: Baso % (Auto) 0.4 % (.) 11/17/24 08: Nucleat RBC Rel Count 0.1 /100 WBC (0-0.5) 11/17/24 08: Neut # (Auto) 9.2 x10E3/uL (1.8-7.7) H 11/17/24 08: Lymph # (Auto) 0.4 x10E3/uL (1.00-4.8) L 11/17/24 08: Bullitt # (Auto) 0.3 x10E3/uL (0.0-0.8) 11/17/24 08: [...] admit him to the medical floor at [facility] I started him on aspirin and statin. [...] Chaz Frey MD> 11/17/24 1311 [facility] Work Phone: 1(130) 943-852401-05-2025 [place] [address] Progress Note Signed Patient: Aaron Olivarez MR#: [id number] : 1960 Acct:[id number] Age/Sex: 64 / M Adm Date: 5 Loc: Room: [address] [place] [address] Type: ADM INOo Attending Dr: Chaz Frey [...] MD 11/17/24 1359 Signed By: 11/17/24 1400 [facility]01-05-2025 [place] [address] Hospitalist H&P Signed Patient: Aaron Olivarez MR#: [id number] : 1960 Acct:[id number] Age/Sex: 64 / M Adm Date: 5 Loc: Room: [address] [place] [address] Type: ADM INOo Attending Dr: Chaz Frey [...] was made not to transfer him to [facility] for thrombectomy. On-call stroke team recommended [facility] to [facility] for neurological andseizure workup with [...] stroke before or seizure history. [facility] Medical History Heavy smoker Heroin use H/O ETOH abuse COPD (chronic obstructive pulmonary disease) Social History Smoking Status: Heavy tobacco smoker Social History Comments: Moved from [place] to [place] to live with son, Lamin. Meds Medications [...] % (Auto) 4.4 % (.) 11/17/24 08: Bullitt % (Auto) 3.3 % (.) 11/17/24 08:28 Eos % (Auto) 0.1 % (.) 11/17/24 08: Baso % (Auto) 0.4 % (.) 11/17/24 08: Nucleat RBC Rel Count 0.1 /100 WBC (0-0.5) 11/17/24 08:28 Neut # (Auto) 9.2 x10E3/uL (1.8-7.7) H 11/17/24 08:28 Lymph # (Auto) 0.4 x10E3/uL (1.00-4.8) L 11/17/24 08:28 [place] # (Auto) 0.3 x10E3/uL (0.0-0.8) 11/17/24 08:28 [...] admit him to the medical floor at [facility] I started him on aspirin and statin. [...] MD 11/17/24 1301 Signed By: 11/17/24 1311 [facility]01-05-2025 Evaluation note* Diagnosis Onset Date Resolution Status Admit Date Acute CVA (cerebrovascular accident) acuteJanuary 2024 9:54amAltered mental statusacuteJanuary 2024 9:54am SeizureacuteJanuary 2024 9:54am [facility] Work Phone: 1(346) 137-709601-05-[address] [facility] [place] [address] [place] [address] CT Scan Report Signed Patient: Aaron Olivarez MR#: [id number] : 1960 Acct:[id number] Age/Sex: 64 / M ADM Date: 5 Loc: ER Room: Type: PRE ER Attending Dr: Copies to: Jamin Sepulveda DO~ Ordering Provider: Jamin Sepulveda DO Date of Service: 11/17/24 CT/CT angio head: cva ([id number]) CT/CT angio neck: cva CT angio head, [...] Dung Chakraborty M.D.11/17/2024 8:59 AM Dictation Location: [place] [address] Transcribed By: [facility] 11/17/24858 Dictated By: Dung Chakraborty II, MD 11/17/24 0852 Signed By: 11/17/24858 [facility] Work Phone: 1(205) 737-924701-05-2025 [facility] [place] [address] [place] [address] CT Scan Report Signed Patient: Aaorn Olivarez MR#: [id number] : 1960 Acct:[id number] Age/Sex: 64 / M ADM Date: 5 [...] Dung Chakraborty M.D.11/17/2024 8:43 AM Dictation Location: [place] [address] Transcribed By: [facility] 11/17/2443 Dictated By: Dung Chakraborty II, MD 11/17/2437 Signed By: 11/17/2443 [facility] Work Phone: 1(612) 641-376809-01-2024 NoteADDENDUM: Results were called to the ordering [...] Mati Valerio MD 07/14/24 Edited Result - [facility]06-24-2024 Discharge summary Author Kiko Maldonado [facility] May 06, 2024 2:21pmNote Date/TimeJune 2023 11:44[place] [address] Discharge Summary Signed Patient: Aaron Olivarez MR#: [id number] : 1960 Acct:[id number] Age/Sex: 63 / M Adm Date: 4 Loc: Room: [address] [place] [address]: Kiko Maldonado MD Copies to: [...] He presented to the emergency department at [facility] on May 01, with complaints of [...] Kiko Maldonado MD> 05/06/24 1421 [facility] Work Phone: 1(956) 845-833006-24-2024 Progress note Author Thanh Raina [facility] May 06, 2024 10:16amNote Date/TimeJune 2023 10:16amTim[place] 2962270 Pulmonology Progress Note Signed Patient: Aaron Olivarez MR#: [id number] : 1960 Acct:[id number] Age/Sex: 63 / M Adm Date: 4 Loc: Room: [address] [place] [address] Type: ADM IN Attending Dr: Janae Jose MD Copies to: ~ Date of Service: 05/06/2024 Subjective Subjective Narrative: Patient voices no complaints at the time my evaluation. He is very interested in being discharged today as he can relax at home as opposed to being in the hospital. He knows he is in a hospital butdoes not know that he is at [facility] in [place]. He also knows it is 2023. Exam [...] signed by MD Thanh Paris> 05/06/24 1016 [facility] Work Phone: 1(107) 792-560906-23-2024 Progress note Author Janae Jose [facility] May 05, 2024 1:27pmNote Date/TimeJune 2023 1:22pm[place] [address] Hospitalist Progress Note Signed Patient: Aaron Olivarez MR#: [id number] : 1960 Acct:[id number] Age/Sex: 63 / M Adm Date: 4 Loc: Room: [address] [place] [address] Type: ADM IN Attending Dr: Janae Jose [...] <Electronically signed by Janae Jose MD> 05/05/24 1326 [facility] Work Phone: 1(459) 754-734106-23-2024 Progress note Author Víctor Agrawal [facility] May 05, 2024 11:29amNote Date/TimeJune 2023 11:[address] [address] Pulmonology Progress Note Signed Patient: Aaron Olivarez MR#: [id number] : 1960 Acct:[id number] Age/Sex: 63 / M Adm Date: 4 Loc: Room: [address] [place] [address] Type: ADM IN Attending Dr: Janae Jose [...] edema, no clubbing. 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 [...] signed by Víctor Agrawal MD> 05/05/24 1129 [facility] Work Phone: 1(810) 642-503206-22-2024 Progress note Author Janae Jose [facility] May 04, 2024 12:19pmNote Date/TimeJune 2023 12:13pm[place] [address] Hospitalist Progress Note Signed Patient: Aaron Olivarez MR#: [id number] : 1960 Acct:[id number] Age/Sex: 63 / M Adm Date: 4 Loc: Room: [address] [place] [address] Type: ADM IN Attending Dr: Janae Jose [...] signed by Janae Jose MD> 05/04/24 1219 [facility] Work Phone: 1(867) 273-923406-22-2024 Progress note Author Víctor Agrawal [facility] May 04, 2024 12:03pmNote Date/TimeJune 2023 11:54[place] [address] Pulmonology Progress Note Signed Patient: Aaron Olivarez MR#: [id number] : 1960 Acct:[id number] Age/Sex: 63 / M Adm Date: 4 Loc: Room: [address] [place] [address] Type: ADM IN Attending Dr: Janae Jose [...] Musculoskeletal: No edema Skin: No skin rash 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: Drowsy and confused, does not interact [...] signed by Víctor Agrawal MD> 05/04/24 1203 [facility] Work Phone: 1(179) 704-673006-21-2024 Progress note Author Víctor Agrawal [facility] May 03, 2024 1:57pmNote Date/TimeJune 2023 1:57pm[place] [address] Pulmonology Progress Note Signed Patient: Aaron Olivarez MR#: [id number] : 1960 Acct:[id number] Age/Sex: 63 / M Adm Date: 4 Loc: Room: [address] [place] [address] Type: ADM IN Attending Dr: Janae Jose [...] Musculoskeletal: No edema Skin: No skin rash 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 No focal deficits Objective [...] <Electronically signed by Víctor Agrawal MD> 05/03/24 8797 [facility] Work Phone: 1(446) 912-141706-21-2024 Progress note Author Janae Jose [facility] May 03, 2024 12:57pmNote Date/TimeJune 2023 12:57pm[place] [address] Hospitalist Progress Note Signed Patient: Aaron Olivarez MR#: [id number] : 1960 Acct:[id number] Age/Sex: 63 / M Adm Date: 4 Loc: Room: [address] [place] [address] Type: ADM IN Attending Dr: Janae Jose [...] signed by Janae Jose MD> 05/03/24 1257 [facility] Work Phone: 1([phone]) [phone] Progress note Author Janae Jose [facility] May 02, 2024 1:49pmNote Date/TimeJune 2023 1:49pm[address] [address] Event Note Signed Patient: Aaron Olivarez MR#: [id number] : 1960 Acct:[id number] Age/Sex: 63 / M Adm Date: 4 Loc: Room: [address] [place] [address] Type: ADM IN Attending Dr: Janae Jose [...] signed by Janae Jose MD> 05/02/24 1349 [facility] Work Phone: 1(111) 188-524506-20-2024 Consult note Author Víctor Agrawal [facility] May 02, 2024 1:47pmNote Date/TimeJune 2023 1:42pm[address] [address] Pulmonology Consult Note Signed Patient: Aaron Olivarez MR#: [id number] : 1960 Acct:[id number] Age/Sex: 63 / M Adm Date: 4 Loc: Room: [address] [place] [address] Type: ADM IN Attending Dr: Janae Jose [...] and history of hypertension was transferred from [place] ED directly into ICU. Apparently, patient was e xperiencing productive cough with thick yellow phlegm and increased shortness of breath prior to his presentation to [place] ED. Patient was found by familylethargic and difficult to arouse, oxygen saturation was 70% on room air, venousblood gas showed pCO2 of 80 with pH of 7.32. Patient refused BiPAP. Chest CT angiogram reported negative for PE, showed right lower lobe consolidation consistent with pneumonia. 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: Drowsy, no focal deficits Results - [...] signed by Víctor Agrawal MD> 05/02/24 1347 [facility] Work Phone: 1(312) 378-689206-20-2024 History and physical note Author Magdy Douglass [facility] May 02, 2024 7:12amNote Date/TimeJune 2023 7:11[place] [address] Hospitalist H&P Signed Patient: Aaron Olivarez MR#: [id number] : 1960 Acct:[id number] Age/Sex: 63 / M Adm Date: 4 Loc: Room: [address] [place] [address] Type: ADM IN Attending Dr: Janae Jose MD Copies to: MD Sulaiman Ruggiero DO Mazhar Rahman, MD~ HPI DATE OF EXAMINATION: 05/01/24 CHIEF COMPLAINT: cough, dyspnea, altered mental status HISTORY OF PRESENT ILLNESS: 63 year old man with history of HTN, COPD, tobacco abuse who presented to [facility] ED with the above complaints. Per the patient for 2-3 days prior to admission he was having a cough productiveof thick yellow sputum and increasing dyspnea with exertion. On the date of presentation family members went to see thepatient and found that he was lethargic and difficult to arouse so he was brought to [facility] ED for evaluation. On arrival there pulse [...] % (Auto) 7.8 % (.) 05/02/24 04:20 Bullitt % (Auto) 8.2 % (.) 05/02/24 04:20 Eos % (Auto) 0.0 % (.) 05/02/24 04:20 Baso % (Auto) 0.2 % (.) 05/02/24 04:20 Nucleat RBC Rel Count 0.2 /100 WBC (0-0.5) 05/02/24 04:20 Neut # (Auto) 6.3 x10E3/uL (1.8-7.7) 05/02/24 04:20 Lymph # (Auto) 0.6 x10E3/uL (1.00-4.8) L 05/02/24 04:20 Bullitt # (Auto) 0.6 x10E3/uL (0.0-0.8) 05/02/24 04:20 [...] signed by Magdy Douglass MD> 05/02/24 0712 [facility] Work Phone: Consult note Author Patricio Galaviz [facility] May 06, 2024 1:01pmNote Date/TimeJune 2023 1:01pm[place] [address] Physiatry (Rehab) Consult Note Signed Patient: Aaron Olivarez MR#: [id number] : 1960 Acct:[id number] Age/Sex: 63 / M Adm Date: 4 Loc: Room: [address] [place] [address] Type: ADM IN Attending Dr: Kiko Maldonado [...] noted below or in HPI [facility] Medical History Heavy smoker Heroin use H/O ETOH abuse COPD (chronic obstructive pulmonary disease) Social History Smoking Status: Heavy tobacco smoker Social History Comments: Moved [place] to [place] to live with sonLamin. Meds Medications and [...] chart, including current orders, allied health and medical sales consultant notes, labs/imaging and performed fairbanks elements of exam and I formulated the plan of care and facilitated the medical decision making. I completed a substantive portion of this encounter, the medical decision making portion of this note in its entirety, including Allied health note review, nursing note review, medical sales consultant note review, discussion with nursing and case management, and more than 50% of my time was spent on counseling and coordination of care, time spent 60 minutes Documented By: Patricio Galaviz MD 05/06/24 1251 Signed By: <Electronically signed by Patricio Galaviz MD> 05/06/24 1301 [facility] Work Phone: Consult note Author Julito Mosley [facility] CenterNote Date/TimeJanuary 2024 4:27pm[place] [address] Cardiology Consult Note Signed Patient: Aaron Olivarez MR#: [id number] : 1960 Acct:[id number] Age/Sex: 64 / M Adm Date: 5 Loc: Room: [address] [place] [address] Type: ADM INOo Attending Dr: Yamila Donald [...] noted below or in HPI [facility] Medical History Heavy smoker Heroin use H/O ETOH abuse COPD (chronic obstructive pulmonary disease) Social History Smoking Status: Unknown if ever smoked Substance Use Type: Marijuana, Heroin and Methamphetamine Social History Comments: Moved from [place] to [place] to live with son, Lamin. Meds Medications [...] x10E3/uL Lymph # (Auto) 1.4 (1.00-4.8) x10E3/uL Bullitt # (Auto) 0.6 (0.0-0.8) x10E3/uL Eos # [...] @ 70 1000 / 1000 mls/hr IV .[id number] CORBY Rx#: [id number] levETIRAcetam 500 mg In 105 / 105 Dextrose 5 % in Water 100 ml @ 420 mls/hr IV BID CORBY Rx#: [id number] Output: Urine 500 / 500 Other: # [...] Julito Mosley MD> 11/18/24 1627 [facility] Work Phone: Consult note Author Neville Bush [facility] CenterNote Date/TimeJanuary 2024 5:44pm[place] [address] Neurology Consult Note Signed Patient: Aaron Olivarez MR#: [id number] : 1960 Acct:[id number] Age/Sex: 64 / M Adm Date: 5 Loc: Room: [address] [place] [address] Type: ADM IN Attending Dr: Yamila Donald MD Copies to: DO Sulaiman Mosquera DO Marwan Wassouf, MD~ HPI Consult Date: 11/18/24 Operations Research Analyst: Neville Bush DO [facility] Medical History Heavy smoker Heroin use H/O ETOH abuse COPD (chronic obstructive pulmonary disease) Social History Smoking Status: Unknown if ever smoked Substance Use Type: Marijuana, Heroin and Methamphetamine Social History Comments: Moved from [place] to [place] to live with son, Lamin. Meds Medications [...] signed by Neville Bush DO> 11/18/24 1742 [facility] Work Phone: Evaluation note* Diagnosis Onset Date Resolution Status Acute exacerbation of chronic obstructiv e pulmonary disease (COPD) acuteAcute respiratory failure with hypoxia and hypercapniaacuteAlcohol abuse acuteAlcohol withdrawalacuteCommunity acquired pneumoniaacuteElevated troponin acuteHistory of heroin abuseacuteMetabolic encephalopathyacuteNicotine dependenceacuteRight lower lobe pneumoniaacuteTobacco abuseacuteUncontrolled hypertensionacute [facility] Work Phone: Progress note Author Yamila Donald [facility] CenterNote Date/TimeJanuary 2024 3:10am[place] [address] Hospitalist Progress Note Signed Patient: Aaron Olivarez MR#: [id number] : 1960 Acct:[id number] Age/Sex: 64 / M Adm Date: 5 Loc: Room: [address] [place] [address] Type: ADM IN Attending Dr: Yamila Donadl MD Copies to: ~ Date of Service: [...] 11/18/25 08:59 Not Given DAILY [facility] Atorvastatin Calcium 40 mg 11/17/24 21:00 11/17/24 [...] Lactated Ringers IV 11/18/24 17:34 70 mls/hr .[id number] CORBY Administration Levetiracetam 500 mg/ Dextrose 105 [...] signed by Yamila Donald MD> 11/19/24 0310 [facility] Work Phone: Progress note Author Neville Bush [facility] CenterNote Date/TimeJanuary 2024 6:02pm[place] [address] Neurology Progress Note Signed Patient: Aaron Olivarez MR#: [id number] : 1960 Acct:[id number] Age/Sex: 64 / M Adm Date: 5 Loc: Room: [address] [place] [address] Type: ADM IN Attending Dr: Yamila Donald [...] follow-up. Documented By: Neville Bush DO 11/19/24 7361 Signed By: <Electronically signed by Neville Bush DO> 11/19/24 1886 [facility] Work Phone: Progress note Author Yamila Donald [facility] CenterNote Date/TimeJanuary 2024 3:02[place] [address] Hospitalist Progress Note Signed Patient: Aaron Olivarez MR#: [id number] : 1960 Acct:[id number] Age/Sex: 64 / M Adm Date: 5 Loc: Room: [address] [place] [address] Type: ADM IN Attending Dr: Yamila Donald [...] 11/18/25 08:59 Not Given DAILY [facility] Atorvastatin Calcium 40 mg 11/17/24 21:00 11/19/24 [...] 11/18/25 16:49 Not Given DAILY [facility] Lorazepam 1 mg 11/18/24 23:27 Lorazepam 2 Mg/Ml Vial IV-PUSH 05/17/25 01:05 Q4H PRN Agitation Lorazepam 2 mg 11/18/24 23:27 11/19/24 20:14 Lorazepam 2 Mg/Ml Vial IV-PUSH 05/17/25 16:43 2 mg Q4H PRN Administration Agitation Multivitamins 1 tab 11/19/24 09:00 11/19/24 09:19 Multivitamin 1 Tab Tablet PO 11/19/25 08:59 Not Given DAILY [facility] Sodium Chloride 0 ml 11/17/24 08:25 11/19/24 [...] mental status: (2) Seizure: Plan Documented By: Yamlia Donald MD 11/19/242100 Signed By: <Electronically signed by Yamila Donald MD> 11/20/24 0302 [facility] Work Phone: Progress note Author Yamila Donald [facility] CenterNote Date/TimeJanuary 2024 7:21pm[place] [address] Hospitalist Progress Note Signed Patient: Aaron Olivarez MR#: [id number] : 1960 Acct:[id number] Age/Sex: 64 / M Adm Date: 5 Loc: Room: [address] [place] [address] Type: ADM IN Attending Dr: Yamila Donald [...] Tablet PO 11/18/25 16:49 20 mg DAILY [facility] Administration Lorazepam 1 mg 11/18/24 23:27 Lorazepam [...] signed by Yamila Donald MD> 11/20/24 1921 [facility] Work Phone: Reason for referral (narrative)No reason for referral information availableGood [facility]aritan [facility] Work Phone: Summary Purpose Family [...] Visit Admit Date Acute CVA (cerebrovascular accident) [facility] 2024 9:54am Altered mental status November 17, 2024 9:54am Seizure November 17, 2024 9: 54am Chief Complaint Admit Date neuro symptoms/fall November 18, 2024 1: 02pm neuro symptoms/fall November 18, 2024 4: 12pm Reason for Visit Admit Date Acute CVA (cerebrovascular accident) [facility] 2024 1:02pm Altered mental status November 18, 2024 1:02pm Seizure November 18, 2024 1: 02pm T wave inversion in EKG November 18 1:02pm Chief Complaint Admit Date 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, 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 8:22 am Reason for Visit Admit Date History of seizure disorder June 07 8:22am Polysubstance abuse June 07, 2025 8:[address] elevation myocardial infarction (STEM I) of inferior wall June 07, 2025 8:22am Chief Complaint Admit Date 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, 2025 8:22 am Unknown July [...] 31, 2025 7:25pm Chief Complaint Admit Date 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, 2025 8:22 am Unknown July [...] section and content) DATE CREATED AUTHOR 05/01/2018 [facility] DATE CREATED AUTHOR AUTHOR'S ORGANIZ ATION 05/04/2018 [facility] DATE CREATED AUTHOR AUTHOR'S ORGANIZ ATION 05/07/2018 [facility] DATE CREATED AUTHOR AUTHOR'S ORGANIZ ATION 05/09/2018 [facility] DATE CREATED AUTHOR AUTHOR'S ORGANIZ ATION 10/23/2018 [facility] DATE CREATED AUTHOR AUTHOR'S ORGANIZ ATION 11/28/2022 [facility] DATE CREATED AUTHOR AUTHOR'S ORGANIZ ATION 07/24/2024 [facility] DATE CREATED AUTHOR AUTHOR'S ORGANIZ ATION 11/24/2024 [facility] DATE CREATED AUTHOR AUTHOR'S ORGANIZ ATION 06/10/2025 [facility] DATE CREATED AUTHOR AUTHOR'S ORGANIZ ATION 09/02/2025 [facility] Care Teams (unrecognized sec [...] ProviderActiveStart: June 07, 2025 Alejandra Montenegro , TEAW-OBC-HNntsm ProviderActiveStart: June 07, 2025 Ratna Denton , PLANNING ADVISOR ACNP-BCOther ProviderActiveStart: June 07, 2025 Thanh Paris [...] 18, 2024 End: November 21shanice Amaro , BEAUTICIAN APPRENTICE-COther ProviderActiveStart: November 18, 2024 End: November 21, 2024Alejandra Montenegro , TUGY-FWF-EYwnnw ProviderActiveStart: November 18, 2024 End: November 21, [...] ProviderActiveStart: November 18, 2024 Janie Amaro , BEAUTICIAN APPRENTICE-COther ProviderActiveStart: November 18, 2024 Alejandra Montenegro , SDGN-YVE-OTwfdt ProviderActiveStart: November 18, 2024 Team Status: Active [...] ProviderActiveStart: November 17, 2024 Janie Amaro , BEAUTICIAN APPRENTICE-COther ProviderActiveStart: November 17, 2024 Alejandra Montenegro , PVJS-UMJ-MVaais ProviderActiveStart: November 17, 2024 Team Status: Inactive [...] Team Status: Inactive Member Role Status Dates aSlty Luis DO Attending Provider Active S tart: [...] ProviderActiveStart: July 31, 2025 Alejandra Montenegro , FRXJ-OXO-NVnfws ProviderActiveStart: July 31, 2025 Ratna Denton , PLANNING ADVISOR ACNP-BCOther ProviderActiveStart: July 31, 2025 Thanh Paris [...] ProviderActiveStart: July 31, 2025 Lissett Burdick , TRAINING SYSTEMS OFFICER-BCOther ProviderActiveStart: July 31, 2025 Team Status: Active [...] ProviderActiveStart: August 07, 2025 Alejandra Montenegro , RDDR-LMA-HIyfag ProviderActiveStart: August 07, 2025 Ratna Denton , PLANNING ADVISOR ACNP-BCOther ProviderActiveStart: August 07, 2025 Thanh Paris [...] ProviderActiveStart: August 07, 2025 Lissett Burdick , TRAINING SYSTEMS OFFICER-BCOther ProviderActiveStart: August 07, 2025 Kiko Maldonado MDOther [...] ProviderActiveStart: August 14, 2025 Alejandra Montenegro , EQMW-DCW-LHdadm ProviderActiveStart: August 14, 2025 Miko Montalvo MDOther [...] ON THE PRIMARY CLINICAL RECORDS. [facility] [employer] provides no warranty or guarantee of the accuracy or completeness of information in this document.
[2025-09-10 07:46] VITALS: BP 163/89; PULSE 94; O2SAT 94
--- NOTE | 2025-09-10 08:20 | CM.NOTE ---
Rounds made with Dr. Frey, discussed with pt reason for admission. Pt unsure if he is compliant with home medications. Possible discharge this afternoon. Pt is OBS status.
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
--- NOTE | 2025-09-10 11:00 | CM.NOTE ---
CM in to discuss WYLIE paper with pt, pt very verbal with inappropriate language and refusing to sign paper. Pt states Leave me the fuck alone and get out of here. . CM leaves room and signs refusal to WYLIE paper.
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
--- NOTE | 2025-09-11 14:57 | CM.NOTE ---
I attempted to call pt for discharge follow up call, no answer, the subscriber is not in service 09/11/2025
--- NOTE | 2025-09-12 13:55 | CM.NOTE ---
I attempted to call the patient for a discharge follow up call and it states the subscriber is not in service
== END 2025-09-10 11:28 | disposition home or self-care (01) ==
LOC: ER 19:59 → MS 09-10 07:06
PROVIDERS: Admitting Provider Internal Medicine; Emergency Provider Emergency Medicine; Visit Provider Internal Medicine
DX: G40.909 Epilepsy, unspecified, not intractable, without status epilepticus (principal); T50.996A Underdosing of other drugs, medicaments and biological substances, initial encounter; Z91.148 Patient's other noncompliance with medication regimen for other reason; R93.0 Abnormal findings on diagnostic imaging of skull and head, not elsewhere classified; Z91.199 Patient's noncompliance with other medical treatment and regimen due to unspecified reason; F10.90 Alcohol use, unspecified, uncomplicated; F15.90 Other stimulant use, unspecified, uncomplicated; I10 Essential (primary) hypertension
CPT/HCPCS: 36415; 70450; 80048; 80053; 80320; 82550; 85025; 93005; 94761; 96365; 96375; 96376; 99285; G0378; J1953; J3360

== ENCOUNTER 2025-09-19 00:46 | Emergency (ER) | payer MEDICARE, SELFPAY ==
[2025-09-19] VITALS (30 sets, daily range): BP systolic 102–222; BP diastolic 64–120; PULSE 60–95; RESP 20; O2SAT 61–99
--- NOTE | 2025-09-19 | XR_ITS ---
The [address] [address] Patient Name: AARON OLIVAREZ MRN: [id number] date: 1960 Sex: M Assigned Patient Location: ER Current Patient Location: Accession/Order Number: [id number] Exam Date: 09/19/2025 02:30 Report Date: 09/19/2025 07:28 At the request of: MARIAM YANES MD Procedure: XR chest 1V PORTABLE AP RECUMBENT CHEST 0213 hours CLINICAL HISTORY: POST INTUBATION COMPARISON: 09/19/2025 There is an endotracheal tube approximately 6 cm above the arabella. There is a feeding tube extends off the lower margin of film. Similar mild atelectasis and/or scarring is noted. There is no new consolidation. No obvious effusion or pneumothorax is seen. The bony structures are osteopenic. There are old left rib fractures. XR/XR chest 1V IMPRESSION: LIFE-SUPPORT DEVICES, DESCRIBED. NO NEW ABNORMALITIES. Impression dictated by: Elizabeth Cruz M.D. 09/19/2025 7:28 AM Dictation Location: [place] [address] Electronically authenticated by: [id number] Y Date: 09/19/2025 07:28
--- NOTE | 2025-09-19 01:04 | XR_ITS ---
The [address] [address] Patient Name: AARON OLIVAREZ MRN: [id number] date: 1960 Sex: M Assigned Patient Location: ER Current Patient Location: Accession/Order Number: [id number] Exam Date: 09/19/2025 01:28 Report Date: 09/19/2025 07:25 At the request of: MARIAM YANES MD Procedure: XR chest 1V PORTABLE AP ERECT CHEST 0103 hours CLINICAL HISTORY: Shortness of breath COMPARISON: 07/31/2025 The cardiac and mediastinal contours are similar. There is no vascular congestion. Atelectasis and/or scarring is visualized, greatest at the right base. There is no new consolidation. Nipple shadows are seen. There is no sizable effusion or pneumothorax. The osseous structures are intact. XR/XR chest 1V IMPRESSION: MILD CHRONIC CHANGES. NO ACUTE FINDINGS Impression dictated by: Elizabeth Cruz M.D. 09/19/2025 7:25 AM Dictation Location: [place] [address] Electronically authenticated by: [id number] Y Date: 09/19/2025 07:25
--- NOTE | 2025-09-19 01:04 | ECG_ITS ---
The [facility] Test Date: 2025-09-19 Pat Name: AARON OLIVAREZ Department: Room: - Gender: Male Weigher And Grader: : 1960 Requested By: [id number] Order Number: [id number] Reading MD: JACKY SIU M.D. Measurements Intervals [place] Rate: 90 P: 69 VT: 170 QRS: 56 QRSD: 94 T: 63 QT: 384 QTc: 431 Interpretive Statements 1100 Sinus rhythm 1570 with occasional ventricular premature complexes [address] depression 9150 abnormal ECG Compared to ECG 09/09/2025 18:44:35 Ventricular premature complex(es) now present ST (T wave) deviation still present Electronically Signed On 09-19-2025 7:28:57 EST by JACKY SIU M.D.
[2025-09-19] MEDS: IPRATROPIUM/ALBUTEROL SULFATE 3 ML AMPUL.NEB IH ×2 (01:05)
[2025-09-19 01:30] LABS: PO2 ABG 77.4 mmHg (80.0-100.0)
[2025-09-19] MEDS: METHYLPREDNISOLONE SOD SUCC PF 125 MG/2 ML VIAL IVP (01:31)
[2025-09-19] MEDS: MAGNESIUM SULFATE IN WATER 2 GM/50 ML PREMIX IV (01:31)
[2025-09-19 01:44] LABS: Allen Test POSITIVE (POSITIVE); Liters per Minute 9; O2 Mode Aerosol Treatment; Oxygen Saturation ABG 91.5 %; Puncture Site Right Radial
--- NOTE | 2025-09-19 01:44 | PC.NURSE ---
Patient was dropped off at the ED doors by a friend. He was in the lobby alone when I went to get him for triage. He was not cooperative with the triage process, he did not want to and/or was not able to answer any questions, he did not want to take any clothes off to put a gown on because it was too cold in the hospital. He yelled at nursing staff and Dr. Ambriz, yelled profanities at everyone, could not answer questions appropriately when he did choose to answer. Getting any medical history was not possible at this time. He did admit that he still smokes 1 pack of cigarettes daily and he still smokes meth, including today.
[2025-09-19 01:46] LABS: ABG PCO2 >98.3 mmHg (35.0-45.0)
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
--- OUTSIDE RECORDS SUMMARY | 2025-09-19 01:48 | XMS_ITS | Clinical Summary ---
Author Organization [facility] Address [address] [place] [address] Care Team Providers Care Taxi Servicer Name Role Phone Phys, Self-Refer Or No Pcp/Referring Primary Car e Provider Unavailable Allergies No known active allergies Social History Tobacco UseTypesPacks/DayYears UsedDateSmoking Tobacco: Never AssessedSex and Gender InformationValueDate RecordedSex Assigned at BirthNot on fileLegal Sex Male06/20/2020 4:19 PM EDTGender IdentityNot on fileSexual OrientationNot on file Last Filed Vital Signs Vital SignReadingTime TakenCommentsBlood Rnolwtdh184/65012/25/2021 6:20 PM EST Hqygx1598/12/2022 6:20 PM LKHJdoeypqhzwv40.1 ??C (98.7 ??F)12/25/2021 6:20 PM ESTRespiratory Mjgr834712/25/2021 6:20 PM ESTOxygen Hnmpbeqmjh38%12/25/2021 6:20 PM ESTInhaled Oxygen Concentration--Xtovnx61.7 kg (200 lb)12/25/2021 5:17 PM EST Xskyni778.4 cm (6' 1 )12/25/2021 5:17 PM ESTBody Mass Index26.39012/25/2021 5:17 PM EST Plan of Treatment Health MaintenanceDue DateLast DoneCommentsCologuard (average risk only) 1960 1436Hjjtcfcrxxx1960Colorectal Cancer Ccngqvbdo1958FIT (average risk only)1960Hepatitis C Rzqphomwz1958DTaP,Tdap,and Td Vaccines (1 - Tdap)1977Pneumococcal Vaccines 50years [...]
--- OUTSIDE RECORDS SUMMARY | 2025-09-19 01:48 | XMS_ITS | Clinical Summary ---
Author Organization [facility] Address [address] [place] [address] Phone Care Team Providers Care Business Analyst Manager Name Role Phone Sulaiman Feldman DO Primary Care Provider [phone] Encounters DateTypeDepartmentCare JrwkQqptkbmvjzl90/20/2025Scanned Document [facility] [address] [place] [id number] Scanning, Generic Provider from Last 3 Months Social History Tobacco UseTypesPacks/DayYears UsedDateSmoking Tobacco: Never AssessedSex and Gender InformationValueDate RecordedSex Assigned at BirthNot on fileLegal Sex Male05/06/2024 10:09 AM EDTGender IdentityNot on fileSexual OrientationNot on file Plan of Treatment Health MaintenanceDue DateLast DoneCommentsCT Umvfkjgeadpg1960Colonoscopy 1960Colorectal Cancer Ldbmjwfzr1958FIT-DNA (Cologuard)1958FIT 1960Lipid Panel1958Medicare Annual Wellness Visit (AWV)1960 Ejdmcmzgnvqcc1958MMR Vaccines (1 of 1 - Standard series)1959Diabetes Efmrptkqz11/22/1976Hepatitis C Obivcagci10/22/1976Pneumococcal Vaccine (1 of 2 - PCV)1977DTaP/Tdap/Td Vaccines (1 - Tdap)1980PSA Prostate Cancer Dwvdslyru07/22/2008RSV High Risk: (Elderly (60+) or Population) (1 - Risk 50-74 years 1-dose series)2008Zoster Vaccines (1 of 2)2008 Influenza Vaccine (#1)2025OVID-19 Vaccine ( season)2025 HIB VaccinesAged OutNo longer eligible based [...] MemberRelationshipSpecialtyStart DateEnd Date Sulaiman Feldman DO [address] [place] [id number] PCP - General11/29/24
--- OUTSIDE RECORDS SUMMARY | 2025-09-19 01:48 | XMS_ITS | Clinical Summary ---
Author Organization [facility] Address [address] [place] [address] Care Team Providers Care Warehouse Manager Name Role Phone Thanh Kenney DO Unavailable [phone] Social History Tobacco UseTypesPacks/DayYears UsedDateSmoking Tobacco: Never AssessedSex and Gender InformationValueDate RecordedSex Assigned at BirthNot on fileLegal Sex Male11/27/2024 2:37 PM ESTGender IdentityNot on fileSexual OrientationNot on file Plan of Treatment Not on file Insurance * Guarantor: Marbin Trujillo EAccount TypeRelation to PatientDate of BirthPhone Billing AddressPersonal/ZyeftpXzxt1960 [facility] [address] Care Teams Team MemberRelationshipSpecialtyStart DateEnd Date Thanh Kenney DO [address] [place] [id number] Referring PhysicianNeurology1
--- OUTSIDE RECORDS SUMMARY | 2025-09-19 01:49 | XMS_ITS | CCD ---
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 ####[address] [address] USAGlucose [Mass/Vol]101 mg/bCNedw81-692Axa [facility] Physician GroupComment on above: Result Comment: Random Glucose Reference Range is dependent on time and content of last meal. Glucose of more than 200 mg/dL in a nonstressed, ambulatory subject supports the diagnosis of Diabetes Mellitus. ADA recommended reference rangePerformed By: #### BMP, CBC ####[place] [address] USAPotassium [Moles/Vol]3.8 mmol/LNormal3.5-5.1The [facility] Physician GroupComment on above:Performed By: #### BMP, CBC ####[place] [address] USASodium [Moles/Vol]135 mmol/BAkf395-502Plp [facility] Physician GroupComment on above: Performed By: #### BMP, CBC ####[place] [address] USAUrea nitrogen [Mass/Vol]20 mg/dLNormal7-25The [facility] Physician GroupComment on above:Performed By: #### BMP, CBC ####[address] Complete Blood Count Auto Diffon [id number] (Bld) [#/Vol]0.0 10*3/uL Normal0.0-0.2The [facility] Physician [facility] WesleyComment on above:Result Comment: PERFORMED BY:[address] [place], [place] [phone] MEDICAL DIRECTORCELESTE GERMAN M.D.Performed By: #### BMP, CBC ####[place] [address] USABasophils/100 WBC (Bld)0.8 %Normal.The [facility] Physician GroupComment on above:Performed By: #### BMP, CBC ####[place] [address] USAEosinophils (Bld) [#/Vol]0.1 10*3/uLNormal 0.0-0.45The [facility] Physician GroupComment on above:Performed By: #### BMP, CBC ####[place] [address] [place] Eosinophils/100 WBC (Bld)1.0 %Normal.The [facility] Physician GroupComment on above:Performed By: #### BMP, CBC ####[place] [address] USAErythrocyte distribution width (RBC) [Ratio]13.7 % Hxxplb09.0-14.8The [facility] Physician GroupComment on above:Performed By: #### BMP, CBC ####[place] [address] USAHematocrit (Bld) [Volume fraction]34.1 %Low38.8-50.0The [facility] Physician GroupComment on above:Performed By: #### BMP, CBC ####[place] [address] USAHemoglobin (Bld) [Mass/Vol]11.6 g/dL Low13.0-17.0The [facility] Physician GroupComment on above:Performed By: #### BMP, CBC ####[place] [address] USALymphocytes (Bld) [#/Vol]1.1 10*3/uLNormal1.00-4.8The [facility] Physician GroupComment on above:Performed By: #### BMP, CBC ####[place] [address] USALymphocytes/100 WBC (Bld)18.8 %Normal .The [facility] Physician GroupComment on above:Performed By: #### BMP, CBC ####[id number] USAMCH (RBC) [Entitic mass]30.5 vfMkugtu51.5-35.2The [facility] Physician GroupComment on above:Performed By: #### BMP, CBC ####[address] USAMCV (RBC) [Entitic vol]89.4 kTPbryhl68.5-101 The [facility] Physician GroupComment on above:Performed By: #### BMP, CBC ####[address] [address] USAMean Corpuscular HGB Conc34.2 g/rQTyravr54.5-35.6The [facility] Physician GroupComment on above:Performed By: #### BMP, CBC ####[address] [address] USAMonocytes (Bld) [#/Vol]0.4 10*3/uLNormal 0.0-0.8The [facility] Physician GroupComment on above:Performed By: #### BMP, CBC ####[address] [place] Monocytes/100 WBC (Bld)7.4 %Normal.The [facility] Physician GroupComment on above:Performed By: #### BMP, CBC ####[place] [address] USANeutrophils (Bld) [#/Vol]4.3 10*3/uLNormal1.8-7.7The [facility] Physician GroupComment on above:Performed By: #### BMP, CBC ####[address] [place] Neutrophils/100 WBC (Bld)72.0 %Normal.The [facility] Physician GroupComment on above:Performed By: #### BMP, CBC ####[address] USANRBC%0.1 /100{WBC}Normal0-0.5The [facility] Physician GroupComment on above:Performed By: #### BMP, CBC ####[address] [address] USAPlatelet mean volume (Bld) [Entitic vol]8.0 fLNormal6.6-10.1The [facility] Physician GroupComment on above: Performed By: #### BMP, CBC ####[address] [address] USAPlatelets (Bld) [#/Vol]316 10*3/eMSlzufu342-372Zni [facility] Physician GroupComment on above:Performed By: #### BMP, CBC ####[address] USARBC (Bld) [#/Vol]3.81 10*6/uLLow3.90-5.60The [facility] Physician GroupComment on above:Performed By: #### BMP, CBC ####[address] USAWBC (Bld) [#/Vol]5.9 10*3/uLNormal4.1-10.5The [facility] Physician GroupComment on above:Performed By: #### BMP, CBC ####[address] USAWhite Blood Count5.9 [CFU]/mLNormal4.1-10.5The [facility] Physician GroupComment on above:Performed By: #### BMP, CBC ####[place] [address] USABasic Metabolic Panelon 50-95-9058Ggpnd gap [Moles/Vol]9.1 mmol/LNormal6.0-15.0The [facility] Physician GroupComment on above:Performed By: #### CBC, BMP ####[place] [address] USACalcium [Mass/Vol]8.5 mg/dLLow8.6-10.3The [facility] Physician GroupComment on above:Performed By: #### CBC, BMP ####[place] [address] USAChloride [Moles/Vol] 103 mmol/FXdefbj42-991Wrk [facility] Physician GroupComment on above:Performed By: #### CBC, BMP ####[place] [address] USACO2 [Moles/Vol]27.2 mmol/NRcsfil08.0-31.0The [facility] Physician GroupComment on above:Performed By: #### CBC, BMP ####[place] [address] USACreatinine [Mass/Vol]0.92 mg/dLNormal 0.70-1.30The [facility] Physician GroupComment on above:Performed By: #### CBC, BMP ####[address] [address] [place] Creatinine Clr Calc Ozemiqeu10.65NormalThe [facility] Physician GroupComment on above:Result Comment: PERFORMED BY:[address] [place], [place] [phone] MEDICAL ELÍAS GERMAN M.D.Performed By: #### CBC, BMP ####[address] [address] USAGFR/1.73 sq M.predicted MDRD (S/P/Bld) [Vol rate/Area]mL/min/{1.73_m2}NormalThe [facility] Physician GroupComment on above: Performed By: #### CBC, BMP ####[id number] USAGlucose [Mass/Vol]80 mg/kDKuofwk19-388Gyj [facility] Physician [facility] WesleyComment on above:Result Comment: Random Glucose Reference Range is dependent on time and content of last meal. Glucose of more than 200 mg/dL in a nonstressed, ambulatory subject supports the diagnosis of Diabetes Mellitus. ADA recommended reference rangePerformed By: #### CBC, BMP ####[address] [address] USAPotassium [Moles/Vol] 3.3 mmol/LLow3.5-5.1The [facility] Physician [facility] WesleyComment on above:Performed By: #### CBC, BMP ####[address] [address] USASodium [Moles/Vol]136 mmol/GWkrwrx756-437Jfo [facility] Physician Group Comment on above:Performed By: #### CBC, BMP ####[address] [address] USAUrea nitrogen [Mass/Vol]17 mg/dLNormal 7-25The [facility] Physician GroupComment on above:Performed By: #### CBC, BMP ####[address] [address] [facility] Complete Blood Count Auto Diffon [id number] (Bld) [#/Vol]0.1 10*3/uL Normal0.0-0.2The [facility] Physician GroupComment on above:Result Comment: PERFORMED BY:[address] [place], [place] [phone] MEDICAL DIRECTORCELESTE GERMAN M.D.Performed By: #### CBC, BMP ####[address] [address] USABasophils/100 WBC (Bld)0.8 %Normal.The [facility] Physician GroupComment on above:Performed By: #### CBC, BMP ####[address] [address] USAEosinophils (Bld) [#/Vol]0.0 10*3/uLNormal 0.0-0.45The [facility] Physician GroupComment on above:Performed By: #### CBC, BMP ####[address] [address] [place] Eosinophils/100 WBC (Bld)0.4 %Normal.The [facility] Physician GroupComment on above:Performed By: #### CBC, BMP ####[address] [address] USAErythrocyte distribution width (RBC) [Ratio]13.7 % Hxfksv85.0-14.8The [facility] Physician GroupComment on above:Performed By: #### CBC, BMP ####[address] [address] USAHematocrit (Bld) [Volume fraction]37.4 %Low38.8-50.0The [facility] Physician GroupComment on above:Performed By: #### CBC, BMP ####[address] [address] USAHemoglobin (Bld) [Mass/Vol]12.6 g/dL Low13.0-17.0The [facility] Physician GroupComment on above:Performed By: #### CBC, BMP ####[place] [address] USALymphocytes (Bld) [#/Vol]1.0 10*3/uLNormal1.00-4.8The [facility] Physician GroupComment on above:Performed By: #### CBC, BMP ####[place] [address] USALymphocytes/100 WBC (Bld)11.3 %Normal .The [facility] Physician GroupComment on above:Performed By: #### CBC, BMP ####[address] (RBC) [Entitic mass]30.2 frOmreiv39.5-35.2The [facility] Physician GroupComment on above:Performed By: #### CBC, BMP ####[address] (RBC) [Entitic vol]89.8 fICffjss47.5-101 The [facility] Physician GroupComment on above:Performed By: #### CBC, BMP ####[place] [address] USAMean Corpuscular HGB Conc33.6 g/nFGqtkrn38.5-35.6The [facility] Physician GroupComment on above:Performed By: #### CBC, BMP ####[place] [address] USAMonocytes (Bld) [#/Vol]0.7 10*3/uLNormal 0.0-0.8The [facility] Physician GroupComment on above:Performed By: #### CBC, BMP ####[place] [address] [place] Monocytes/100 WBC (Bld)7.8 %Normal.The [facility] Physician GroupComment on above:Performed By: #### CBC, BMP ####[place] [address] USANeutrophils (Bld) [#/Vol]6.9 10*3/uLNormal1.8-7.7The [facility] Physician GroupComment on above:Performed By: #### CBC, BMP ####[place] [address] [place] Neutrophils/100 WBC (Bld)79.7 %Normal.The [facility] Physician GroupComment on above:Performed By: #### CBC, BMP ####[place] [address] USANRBC%0.0 /100{WBC}Normal0-0.5The [facility] Physician GroupComment on above:Performed By: #### CBC, BMP ####[place] [address] USAPlatelet mean volume (Bld) [Entitic vol]8.1 fLNormal6.6-10.1The [facility] Physician GroupComment on above: Performed By: #### CBC, BMP ####[place] [address] USAPlatelets (Bld) [#/Vol]340 10*3/gYOqaaax941-006Vrg [facility] Physician GroupComment on above:Performed By: #### CBC, BMP ####[place] [address] USARBC (Bld) [#/Vol]4.16 10*6/uLNormal3.90-5.60The [facility] Physician GroupComment on above:Performed By: #### CBC, BMP ####[place] [address] USAWBC (Bld) [#/Vol]8.7 10*3/uLNormal4.1-10.5The [facility] Physician GroupComment on above:Performed By: #### CBC, BMP ####[place] [address] USAWhite Blood Count8.7 [CFU]/mLNormal4.1-10.5The [facility] Physician GroupComment on above:Performed By: #### CBC, BMP ####[address] [address] USABasic Metabolic Panelon 58-68-4770Ycecv gap [Moles/Vol]9.5 mmol/LNormal6.0-15.0The [facility] Physician GroupComment on above:Performed By: #### BMP ####[address] [address] USACalcium [Mass/Vol]8.1 mg/dLLow8.6-10.3The [facility] Physician GroupComment on above:Performed By: #### BMP ####[address] [address] USAChloride [Moles/Vol]105 mmol/L Epzaju98-212Qbg [facility] Physician GroupComment on above:Performed By: #### BMP ####[address] [address] USACO2 [Moles/Vol]22.6 mmol/EAirczh71.0-31.0The [facility] Physician GroupComment on above:Performed By: #### BMP ####[address] [address] USACreatinine [Mass/Vol]0.88 mg/dLNormal0.70-1.30The [facility] Physician GroupComment on above:Performed By: #### BMP ####[address] [address] USACreatinine Clr Calc Mzjfuzjw62.41NormalThe [facility] Physician GroupComment on above:Result Comment: PERFORMED BY:[address] [place], [place] [phone] MEDICAL ELÍAS GERMAN M.D.Performed By: #### BMP ####[address] [address] USAGFR/1.73 sq M.predicted MDRD (S/P/Bld) [Vol rate/Area]mL/min/{1.73_m2}Normal The [facility] Physician GroupComment on above:Performed By: #### BMP ####[address] [place] [address] USAGlucose [Mass/Vol]83 mg/bTSokned35-382Yuc [facility] Physician GroupComment on above: Result Comment: Random Glucose Reference Range is dependent on time and content of last meal. Glucose of more than 200 mg/dL in a nonstressed, ambulatory subject supports the diagnosis of Diabetes Mellitus. ADA recommended reference rangePerformed By: #### BMP ####[place] [address] USAPotassium [Moles/Vol]4.1 mmol/LNormal3.5-5.1The [facility] Physician GroupComment on above:Result Comment: Hemolysis is present at a level that could interfere with the result. Contact lab if redraw is requiredPerformed By: #### BMP ####[place] [address] USASodium [Moles/Vol]133 mmol/GKxu275-705Sao [facility] Physician GroupComment on above:Performed By: #### BMP ####[id number] USAUrea nitrogen [Mass/Vol]25 mg/dLNormal7-25The [facility] Physician GroupComment on above:Performed By: #### BMP ####[phone] [facility] Complete Blood Count Auto Diffon [id number] (Bld) [#/Vol]0.0 10*3/uL Normal0.0-0.2The [facility] Physician GroupComment on above:Result Comment: PERFORMED BY:[address] [place], [place] [phone] MEDICAL DIRECTORCELESTE GERMAN M.D.Performed By: #### CBC ####[phone] USABasophils/100 WBC (Bld)0.7 %Normal.The [facility] Physician GroupComment on above:Performed By: #### CBC ####[address] USAEosinophils (Bld) [#/Vol]0.0 10*3/uLNormal0.0-0.45 The [facility] Physician GroupComment on above:Performed By: #### CBC ####[address] Eosinophils/100 WBC (Bld)0.6 %Normal.The [facility] Physician GroupComment on above:Performed By: #### CBC ####[address]Erythrocyte distribution width (RBC) [Ratio]14.2 % Cwwsiu84.0-14.8The [facility] Physician GroupComment on above:Performed By: #### CBC ####[address] Hematocrit (Bld) [Volume fraction]36.4 %Low38.8-50.0The [facility] Physician GroupComment on above:Performed By: #### CBC ####[place] [address] USAHemoglobin (Bld) [Mass/Vol]12.1 g/dL Low13.0-17.0The [facility] Physician GroupComment on above:Performed By: #### CBC ####[address] Lymphocytes (Bld) [#/Vol]0.8 10*3/uLLow1.00-4.8The [facility] Physician Group Comment on above:Performed By: #### CBC ####[place] [address] USALymphocytes/100 WBC (Bld)11.7 %Normal.The [facility] Physician GroupComment on above:Performed By: #### CBC ####[place] [address] USAMCH (RBC) [Entitic mass]30.3 rcWrkzhs55.5-35.2The [facility] Physician GroupComment on above: Performed By: #### CBC ####[place] [address] USAMCV (RBC) [Entitic vol]91.2 zSMncyla09.5-101The [facility] Physician GroupComment on above:Performed By: #### CBC ####[place] [address] USAMean Corpuscular HGB Conc33.2 g/qCXbjcym61.5-35.6The [facility] Physician GroupComment on above: Performed By: #### CBC ####[place] [address] USAMonocytes (Bld) [#/Vol]0.5 10*3/uLNormal0.0-0.8The [facility] Physician GroupComment on above:Performed By: #### CBC ####[place] [address] USAMonocytes/100 WBC (Bld)7.0 %Normal.The [facility] Physician GroupComment on above:Performed By: #### CBC ####[place] [address] USANeutrophils (Bld) [#/Vol]5.2 10*3/uLNormal1.8-7.7The [facility] Physician GroupComment on above:Performed By: #### CBC ####[place] [address] USANeutrophils/100 WBC (Bld)80.0 %Normal. The [facility] Physician GroupComment on above:Performed By: #### CBC ####[place] [address] USANRBC% 0.0 /100{WBC}Normal0-0.5The [facility] Physician GroupComment on above:Performed By: #### CBC ####[place] [address] USAPlatelet mean volume (Bld) [Entitic vol]8.0 fLNormal6.6-10.1The [facility] Physician GroupComment on above:Performed By: #### CBC ####[place] [address] USAPlatelets (Bld) [#/Vol]257 10*3/nRZtuecd479-701Mgn [facility] Physician GroupComment on above: Performed By: #### CBC ####[address] [address] USARBC (Bld) [#/Vol]3.98 10*6/uLNormal3.90-5.60The [facility] Physician GroupComment on above:Performed By: #### CBC ####[place] [address] USAWBC (Bld) [#/Vol]6.5 10*3/uLNormal4.1-10.5The [facility] Physician GroupComment on above:Performed By: #### CBC ####[id number] USAWhite Blood Count6.5 [CFU]/mLNormal4.1-10.5The [facility] Physician Group Comment on above:Performed By: #### CBC ####[place] [address] [address] USABasic Metabolic Panelon 02-12-8932Ibhyg gap [Moles/Vol]8.3 mmol/LNormal6.0-15.0The [facility] Physician GroupComment on above:Performed By: #### BMP, CBC ####[place] [address] USACalcium [Mass/Vol]8.5 mg/dLLow8.6-10.3The [facility] Physician GroupComment on above:Performed By: #### BMP, CBC ####[place] [address] USAChloride [Moles/Vol] 101 mmol/NOdiaei60-775Kpw [facility] Physician GroupComment on above:Performed By: #### BMP, CBC ####[place] [address] USACO2 [Moles/Vol]31.6 mmol/LHigh21.0-31.0The [facility] Physician Group Comment on above:Performed By: #### BMP, CBC ####[address] [address] USACreatinine [Mass/Vol]1.10 mg/dLNormal 0.70-1.30The [facility] Physician GroupComment on above:Performed By: #### BMP, CBC ####[address] [address] [place] Creatinine Clr Calc Nlnwfqzy01.53NormalThe [facility] Physician GroupComment on above:Result Comment: PERFORMED BY:[address] [place], [place] [phone] MEDICAL ELÍAS GERMAN M.D.Performed By: #### BMP, CBC ####[address] [address] USAGFR/1.73 sq M.predicted MDRD (S/P/Bld) [Vol rate/Area]mL/min/{1.73_m2}NormalThe [facility] Physician GroupComment on above: Performed By: #### BMP, CBC ####[address] [address] USAGlucose [Mass/Vol]95 mg/yERucfvx52-533Fhg [facility] Physician GroupComment on above:Result Comment: Random Glucose Reference Range is dependent on time and content of last meal. Glucose of more than 200 mg/dL in a nonstressed, ambulatory subject supports the diagnosis of Diabetes Mellitus. ADA recommended reference rangePerformed By: #### BMP, CBC ####[address] [address] USAPotassium [Moles/Vol] 3.9 mmol/LNormal3.5-5.1The [facility] Physician GroupComment on above:Performed By: #### BMP, CBC ####[address] [address] USASodium [Moles/Vol]137 mmol/DZjquoa498-240Fgm [facility] Physician GroupComment on above:Performed By: #### BMP, CBC ####[address] [address] USAUrea nitrogen [Mass/Vol]33 mg/dLHigh 7-25The [facility] Physician GroupComment on above:Performed By: #### BMP, CBC ####[place] [phone] [facility] Complete Blood Count Auto Diffon [id number] (Bld) [#/Vol]0.0 10*3/uL Normal0.0-0.2The [facility] Physician GroupComment on above:Result Comment: PERFORMED BY:[address] [place], [place] [phone] MEDICAL DIRECTORCELESTE GERMAN M.D.Performed By: #### BMP, CBC ####[place] [phone] USABasophils/100 WBC (Bld)0.8 %Normal.The [facility] Physician GroupComment on above:Performed By: #### BMP, CBC ####[place] [address] USAEosinophils (Bld) [#/Vol]0.0 10*3/uLNormal 0.0-0.45The [facility] Physician GroupComment on above:Performed By: #### BMP, CBC ####[place] [address] [place] Eosinophils/100 WBC (Bld)0.9 %Normal.The [facility] Physician GroupComment on above:Performed By: #### BMP, CBC ####[place] [address] USAErythrocyte distribution width (RBC) [Ratio]14.4 % Gzrwnf49.0-14.8The [facility] Physician GroupComment on above:Performed By: #### BMP, CBC ####[place] [address] USAHematocrit (Bld) [Volume fraction]33.5 %Low38.8-50.0The [facility] Physician GroupComment on above:Performed By: #### BMP, CBC ####[place] [address] USAHemoglobin (Bld) [Mass/Vol]11.1 g/dL Low13.0-17.0The [facility] Physician GroupComment on above:Performed By: #### BMP, CBC ####[place] [address] USALymphocytes (Bld) [#/Vol]1.0 10*3/uLNormal1.00-4.8The [facility] Physician GroupComment on above:Performed By: #### BMP, CBC ####[place] [address] USALymphocytes/100 WBC (Bld)17.1 %Normal .The [facility] Physician GroupComment on above:Performed By: #### BMP, CBC ####[address] (RBC) [Entitic mass]30.1 jeHjkfhc15.5-35.2The [facility] Physician GroupComment on above:Performed By: #### BMP, CBC ####[address] (RBC) [Entitic vol]90.5 qADxohox79.5-101 The [facility] Physician GroupComment on above:Performed By: #### BMP, CBC ####[place] [address] USAMean Corpuscular HGB Conc33.2 g/iKGvqdpn58.5-35.6The [facility] Physician GroupComment on above:Performed By: #### BMP, CBC ####[place] [address] USAMonocytes (Bld) [#/Vol]0.4 10*3/uLNormal 0.0-0.8The [facility] Physician GroupComment on above:Performed By: #### BMP, CBC ####[place] [address] [place] Monocytes/100 WBC (Bld)6.3 %Normal.The [facility] [facility] Hospital Physician GroupComment on above:Performed By: #### BMP, CBC ####[address] [address] USANeutrophils (Bld) [#/Vol]4.3 10*3/uLNormal1.8-7.7The [facility] Physician GroupComment on above:Performed By: #### BMP, CBC ####[address] [address] [place] Neutrophils/100 WBC (Bld)74.9 %Normal.The [facility] Physician GroupComment on above:Performed By: #### BMP, CBC ####[place] [id number] USANRBC%0.2 /100{WBC}Normal0-0.5The [facility] Physician GroupComment on above:Performed By: #### BMP, CBC ####[place] [address] USAPlatelet mean volume (Bld) [Entitic vol]8.2 fLNormal6.6-10.1The [facility] Physician GroupComment on above: Performed By: #### BMP, CBC ####[place] [phone] USAPlatelets (Bld) [#/Vol]200 10*3/kFXhfqzj832-687Icx [facility] Physician GroupComment on above:Performed By: #### BMP, CBC ####[place] [address] USARBC (Bld) [#/Vol]3.70 10*6/uLLow3.90-5.60The [facility] Physician GroupComment on above:Performed By: #### BMP, CBC ####[address] [address] USAWBC (Bld) [#/Vol]5.7 10*3/uLNormal4.1-10.5The [facility] Physician GroupComment on above:Performed By: #### BMP, CBC ####[place] [phone] USAWhite Blood Count5.7 [CFU]/mLNormal4.1-10.5The [facility] Physician GroupComment on above:Performed By: #### BMP, CBC ####[address] [address] USABasic Metabolic Panelon 75-63-9107Whdwz gap [Moles/Vol]8.6 mmol/LNormal6.0-15.0The [facility] Physician GroupComment on above:Performed By: #### BMP, CBC ####[address] [address] USACalcium [Mass/Vol]8.3 mg/dLLow8.6-10.3The [facility] Physician GroupComment on above:Performed By: #### BMP, CBC ####[address] [address] USAChloride [Moles/Vol] 105 mmol/ERsqaxk32-851Ezf [facility] Physician GroupComment on above:Performed By: #### BMP, CBC ####[address] [address] USACO2 [Moles/Vol]32.7 mmol/LHigh21.0-31.0The [facility] Comment on above:Performed By: #### BMP, CBC ####[place] [phone] USACreatinine [Mass/Vol]1.05 mg/dLNormal 0.70-1.30The [facility] Physician GroupComment on above:Performed By: #### BMP, CBC ####[address] [address] [place] Creatinine Clr Calc Elofngqx96.23NormalThe [facility] Physician GroupComment on above:Result Comment: PERFORMED BY:[address] [place], [place] [phone] MEDICAL DIRECTORCELESTE GERMAN M.D.Performed By: #### BMP, CBC ####[address] [address] USAGFR/1.73 sq M.predicted MDRD (S/P/Bld) [Vol rate/Area]mL/min/{1.73_m2}NormalThe [facility] Physician GroupComment on above: Performed By: #### BMP, CBC ####[address] [address] USAGlucose [Mass/Vol]87 mg/wMTfilzc44-635Keg [facility] Physician GroupComment on above:Result Comment: Random Glucose Reference Range is dependent on time and content of last meal. Glucose of more than 200 mg/dL in a nonstressed, ambulatory subject supports the diagnosis of Diabetes Mellitus. ADA recommended reference rangePerformed By: #### BMP, CBC ####[address] [address] USAPotassium [Moles/Vol] 4.3 mmol/LNormal3.5-5.1The [facility] Physician GroupComment on above:Performed By: #### BMP, CBC ####[place] [phone] USASodium [Moles/Vol]142 mmol/AQvprhh718-299Jni [facility] Physician GroupComment on above:Performed By: #### BMP, CBC ####[address] [address] USAUrea nitrogen [Mass/Vol]30 mg/dLHigh 7-25The [facility] Physician GroupComment on above:Performed By: #### BMP, CBC ####[place] [phone] [place] Complete Blood Count Auto Diffon 63-30-1787Ddeuytale (Bld) [#/Vol]0.1 10*3/uL Normal0.0-0.2The [facility] Physician GroupComment on above:Result Comment: PERFORMED BY:[address] [place]rem[place], [place] [phone] MEDICAL DIRECTORCELESTE GERMAN M.D.Performed By: #### BMP, CBC ####[place] [phone] USABasophils/100 WBC (Bld)0.8 %Normal.The [facility] Physician GroupComment on above:Performed By: #### BMP, CBC ####[address] [place] [address] USAEosinophils (Bld) [#/Vol]0.0 10*3/uLNormal 0.0-0.45The [facility] Physician GroupComment on above:Performed By: #### BMP, CBC ####[place] [address] [place] Eosinophils/100 WBC (Bld)0.6 %Normal.The [facility] Physician GroupComment on above:Performed By: #### BMP, CBC ####[place] [address] USAErythrocyte distribution width (RBC) [Ratio]15.0 % High12.0-14.8The [facility] Physician GroupComment on above:Performed By: #### BMP, CBC ####[place] [address] USAHematocrit (Bld) [Volume fraction]35.8 %Low38.8-50.0The [facility] Physician GroupComment on above:Performed By: #### BMP, CBC ####[place] [address] USAHemoglobin (Bld) [Mass/Vol]11.8 g/dL Low13.0-17.0The [facility] Physician GroupComment on above:Performed By: #### BMP, CBC ####[place] [address] USALymphocytes (Bld) [#/Vol]0.8 10*3/uLLow1.00-4.8The [facility] Comment on above:Performed By: #### BMP, CBC ####[place] [address] USALymphocytes/100 WBC (Bld)13.2 %Normal. The [facility] Physician GroupComment on above:Performed By: #### BMP, CBC ####[place] [address] USAMCH (RBC) [Entitic mass]30.2 aqRksooa15.5-35.2The [facility] Physician GroupComment on above:Performed By: #### BMP, CBC ####[place] [address] USAMCV (RBC) [Entitic vol]92.0 bQYgopvq63.5-101 The [facility] Physician GroupComment on above:Performed By: #### BMP, CBC ####[place] [address] USAMean Corpuscular HGB Conc32.8 g/yQBtnmvb57.5-35.6The [facility] Physician GroupComment on above:Performed By: #### BMP, CBC ####[place] [address] USAMonocytes (Bld) [#/Vol]0.3 10*3/uLNormal 0.0-0.8The [facility] Physician GroupComment on above:Performed By: #### BMP, CBC ####[place] [address] [place] Monocytes/100 WBC (Bld)4.9 %Normal.The [facility] Physician GroupComment on above:Performed By: #### BMP, CBC ####[place] [address] USANeutrophils (Bld) [#/Vol]5.1 10*3/uLNormal1.8-7.7The [facility] Physician GroupComment on above:Performed By: #### BMP, CBC ####[place] [address] [place] Neutrophils/100 WBC (Bld)80.5 %Normal.The [facility] Physician GroupComment on above:Performed By: #### BMP, CBC ####[place] [address] USANRBC%0.2 /100{WBC}Normal0-0.5The [facility] Physician GroupComment on above:Performed By: #### BMP, CBC ####[place] [address] USAPlatelet mean volume (Bld) [Entitic vol]8.0 fLNormal6.6-10.1The [facility] Physician GroupComment on above: Performed By: #### BMP, CBC ####[address] [address] USAPlatelets (Bld) [#/Vol]213 10*3/vPEwjrrd320-957Bja [facility] Physician GroupComment on above:Performed By: #### BMP, CBC ####[place] [phone] USARBC (Bld) [#/Vol]3.89 10*6/uLLow3.90-5.60The [facility] Physician GroupComment on above:Performed By: #### BMP, CBC ####[place] [address] USAWBC (Bld) [#/Vol]6.4 10*3/uLNormal4.1-10.5The [facility] Physician GroupComment on above:Performed By: #### BMP, CBC ####[place] [address] USAWhite Blood Count6.4 [CFU]/mLNormal4.1-10.5The [facility] Physician GroupComment on above:Performed By: #### BMP, CBC ####[place] [address] USAGlucose Poct Glucometerson 73-09-5384Jdzypdr7Dst9: Cleaned [facility] Physician [facility] WesleyComment on above:Result Comment: PERFORMED BY:[address] [place]arlettJeremiSH[place], [place] [phone] MEDICAL ELÍAS GERMAN M.D.Performed By: #### GLULS ####Point of Care testing,Glucose [Mass/Vol]111 mg/dLBaptist Health [facility] Physician [facility] WesleyComment on above:Result Comment: Random Glucose Reference Range is dependent on time and content of last meal. Glucose of more than 200 mg/dL in a nonstressed, ambulatory subject supports the diagnosis of Diabetes Mellitus.Performed By: #### GLULS ####Point of Care testing,Commemt1 Glu2: Cleaned MeterNormalThe [facility]lands Physician GroupComment on above:Result Comment: PERFORMED BY:[address] CANDELARIOJeremiSHAR, [place] [phone] MEDICAL DIRECTORCELESTE GERMAN M.D.Performed By: #### GLULS ####Point of Care testing,Glucose [Mass/Vol]97 mg/dLBaptist Health Bet[facility] Physician GroupComment on above:Result Comment: Random Glucose Reference Range is dependent on time and content of last meal. Glucose of more than 200 mg/dL in a nonstressed, ambulatory subject supports the diagnosis of Diabetes Mellitus.Performed By: #### GLULS ####Point of Care testing,Glucose [Mass/Vol]101 mg/dLBaptist Health Bethes[facility] Physician GroupComment on above:Result Comment: Random Glucose Reference Range is dependent on time and content of last meal. Glucose of more than 200 mg/dL in a nonstressed, ambulatory subject supports the diagnosis of Diabetes Mellitus.PERFORMED BY:[place] [address] [address] CANDELARIOJeremiSHAR, [place] [phone] MEDICAL ELÍAS GERMAN M.D.Performed By: #### GLULS ####Point of Care testing, Rdpbvkk6Aza5: Cleaned MeterBaptist Health Bet[facility] Physician GroupComment on above: Result Comment: PERFORMED BY:[address] CANDELARIOJeremiSHAR, [place] [phone] MEDICAL ELÍAS GERMAN M.D.Performed By: #### GLULS ####Point of Care testing,Glucose [Mass/Vol]110 mg/dLBaptist Health Bethes[facility] Physician GroupComment on above:Result Comment: Random Glucose Reference Range is dependent on time and content of last meal. Glucose of more than 200 mg/dL in a nonstressed, ambulatory subject supports the diagnosis of Diabetes Mellitus.Performed By: #### GLULS ####Point of Care testing,Arterial Blood Gason 95-69-4457CDS Base Excess4.8 mmol/LHigh-3.0-3.0The [facility] Physician GroupComment on above:Performed By: #### ABG ####Point of Care testing,ABG Frac Inspired O235 %NormalThe [facility] Physician GroupComment on above:Performed By: #### ABG ####Point of Care testing,ABG Oxygen Content7.6 mmol/LNormal6.6-9.7The [facility] Physician GroupComment on above:Performed By: #### ABG ####Point of Care testing,ABG Oxygen Nelbqktkgh59.4 %Low95.0-100.0The [facility] Physician GroupComment on above:Performed By: #### ABG ####Point of Care testing,ABG HBA447.5 mm[Hg]High35.0-45.0[facility] Physician [facility] Comment on above:Performed By: #### ABG ####Point of Care testing,ABG PH7.41 Normal7.35-7.45The [facility] Physician GroupComment on above:Performed By: #### ABG ####Point of Care testing,ABG PO260.5 mm[Hg]Low80.0-100.0The [facility] Physician GroupComment on above:Performed By: #### ABG ####Point of Care testing,ABG Pressure Sucreyy18.0[facility] Physician GroupComment on above:Performed By: #### ABG ####Point of Care testing,CO2 [Moles/Vol]31.8 mmol/LHigh23.0-27.0The [facility] Physician GroupComment on above:Performed By: #### ABG ####Point of Care testing,CPAP5.0NoDosher [facility] Physician [facility] Comment on above:Performed By: #### ABG ####Point of Care testing,HCO3 (Bld) [Moles/Vol]30.3 mmol/LHigh23.0-29.0The [facility] Physician GroupComment on above:Performed By: #### ABG ####Point of Care testing,Respiratory Critical NormalAdventhealth Tampa Physician GroupComment on above:Result Comment: Critical Value called on: 08/07/2025 at 14:47PERFORMED BY:[place] [address] [address] [place]INGUEZWINTERV[place], [place] [phone] MEDICAL DIRECTORCELESTE GERMAN M.D.Performed By: #### ABG ####Point of Care testing, VBG Draw SiteRight RadialBaptist Health Bethesda Hospital [facility] Physician GroupComment on above: Performed By: #### ABG ####Point of Care testing,Ventilator ModeCPAPBaptist Health Bethesda Hospital [facility] Physician GroupComment on above:Performed By: #### ABG ####Point of Care testing,ABG Base Excess6.2 mmol/LHigh-3.0-3.0[facility] Comment on above:Performed By: #### ABG ####Point of Care testing,ABG Frac Inspired O230 %NormalThe [facility] Physician GroupComment on above:Performed By: #### ABG ####Point of Care testing,ABG Oxygen Content7.1 mmol/LNormal6.6-9.7The [facility] Physician GroupComment on above:Performed By: #### ABG ####Point of Care testing,ABG Oxygen Suehhzljme92.7 %Low95.0-100.0[facility] Physician GroupComment on above:Performed By: #### ABG ####Point of Care testing,ABG PCO2 42.6 mm[Hg]Iiazcr48.0-45.0The [facility] Physician GroupComment on above: Performed By: #### ABG ####Point of Care testing,ABG SSMC4AzgsojJvgBaptist Health [facility]hes[facility] Physician GroupComment on above:Performed By: #### ABG ####Point of Care testing,ABG PH7.78Xbwv6.35-7.45[facility] Physician GroupComment on above: Performed By: #### ABG ####Point of Care testing,ABG PO258.8 mm[Hg]Low80.0-100.0 [facility] Physician GroupComment on above:Performed By: #### ABG ####Point of Care testing,ABG TV450 mLNormalThe [facility] Physician GroupComment on above: Performed By: #### ABG ####Point of Care testing,CO2 [Moles/Vol]31.8 mmol/LHigh 23.0-27.0The [facility] Physician GroupComment on above:Performed By: #### ABG ####Point of Care testing,HCO3 (Bld) [Moles/Vol]30.4 mmol/LHigh23.0-29.0The [facility] Physician GroupComment on above:Performed By: #### ABG ####Point of Care testing,Respiratory CriticalBaptist Health Bethesda Hospital East Physician GroupComment on above:Result Comment: Critical Value called on: 08/07/2025 at 05:39PERFORMED BY:[address] [place], [place] [phone] MEDICAL DIRECTORCELESTE GERMAN M.D.Performed By: #### ABG ####Point of Care testing,Set Respiratory Eheb85FrjhrfAau[address] [place] [address] Physician GroupComment on above:Performed By: #### ABG ####Point of Care testing,VBG Draw SiteLeft BrachialBaptist Health Bethesda Hospital [facility] Physician GroupComment on above:Performed By: #### ABG ####Point of Care testing,Ventilator ModeACNormal [facility] Physician GroupComment on above:Performed By: #### ABG ####Point of Care testing,Basic Metabolic Panelon 61-31-5971Imeua gap [Moles/Vol]9.4 mmol/LNormal6.0-15.0The [facility] Physician GroupComment on above:Performed By: #### CBC, BMP ####[address] [address] USACalcium [Mass/Vol]8.3 mg/dLLow8.6-10.3The [facility] Comment on above:Performed By: #### CBC, BMP ####[address] [address] USAChloride [Moles/Vol]105 mmol/LNormal 98-107The [facility] Physician GroupComment on above:Performed By: #### CBC, BMP ####[address] [address] USACO2 [Moles/Vol]33.9 mmol/LHigh21.0-31.0The [facility] Physician GroupComment on above:Performed By: #### CBC, BMP ####[place] [address] [place] [address] USACreatinine [Mass/Vol]1.08 mg/dLNormal0.70-1.30The [facility] Physician GroupComment on above:Performed By: #### CBC, BMP ####[address] [address] [place] Creatinine Clr Calc Ciuwqqaq02.59NormalThe [facility] Physician GroupComment on above:Result Comment: PERFORMED BY:[address] [place], [place] [phone] MEDICAL DIRECTORCELESTE GERMAN M.D.Performed By: #### CBC, BMP ####[address] [address] USAGFR/1.73 sq M.predicted MDRD (S/P/Bld) [Vol rate/Area]mL/min/{1.73_m2}NormalThe [facility] Physician GroupComment on above: Performed By: #### CBC, BMP ####[address] [address] USAGlucose [Mass/Vol]106 mg/oKRdbs17-084Tiy [facility] Physician GroupComment on above:Result Comment: Random Glucose Reference Range is dependent on time and content of last meal. Glucose of more than 200 mg/dL in a nonstressed, ambulatory subject supports the diagnosis of Diabetes Mellitus. ADA recommended reference rangePerformed By: #### CBC, BMP ####[address] [address] USAPotassium [Moles/Vol] 4.3 mmol/LNormal3.5-5.1The [facility] Physician GroupComment on above:Performed By: #### CBC, BMP ####[address] [address] USASodium [Moles/Vol]144 mmol/YPoehik036-909Kwk [facility] Physician GroupComment on above:Performed By: #### CBC, BMP ####[address] [place] [address] USAUrea nitrogen [Mass/Vol]27 mg/dLHigh 7-25The [facility] Physician GroupComment on above:Performed By: #### CBC, BMP ####[place] [phone] [facility] Complete Blood Count Auto Diffon [id number] (Bld) [#/Vol]0.0 10*3/uL Normal0.0-0.2The [facility] Physician GroupComment on above:Result Comment: PERFORMED BY:[address] [place], [place] [phone] MEDICAL DIRECTORCELESTE GERMAN M.D.Performed By: #### CBC, BMP ####[place] [phone] USABasophils/100 WBC (Bld)0.7 %Normal.[facility] Physician GroupComment on above:Performed By: #### CBC, BMP ####[place] [phone] USAEosinophils (Bld) [#/Vol]0.1 10*3/uLNormal 0.0-0.45The [facility] Physician GroupComment on above:Performed By: #### CBC, BMP ####[place] [address] [place] Eosinophils/100 WBC (Bld)0.8 %Normal.The [facility] Physician GroupComment on above:Performed By: #### CBC, BMP ####[place] [phone] [facility] MEDICAL CENTERErythrocyte distribution width (RBC) [Ratio]15.4 % High12.0-14.8The [facility] Physician GroupComment on above:Performed By: #### CBC, BMP ####[place] [address] USAHematocrit (Bld) [Volume fraction]38.0 %Low38.8-50.0[facility] Physician GroupComment on above:Performed By: #### CBC, BMP ####[address] [address] USAHemoglobin (Bld) [Mass/Vol]12.2 g/dL Low13.0-17.0The [facility] Physician GroupComment on above:Performed By: #### CBC, BMP ####[address] [address] USALymphocytes (Bld) [#/Vol]0.9 10*3/uLLow1.00-4.8The [facility] Comment on above:Performed By: #### CBC, BMP ####[address] [address] USALymphocytes/100 WBC (Bld)13.0 %Normal. [facility] Physician GroupComment on above:Performed By: #### CBC, BMP ####[address] [address] USAMCH (RBC) [Entitic mass]30.1 eqZdwajf15.5-35.2The [facility] Physician GroupComment on above:Performed By: #### CBC, BMP ####[address] [address] USAMCV (RBC) [Entitic vol]93.5 tMEaxzrb34.5-101 [facility] Physician GroupComment on above:Performed By: #### CBC, BMP ####[address] [address] USAMean Corpuscular HGB Conc32.2 g/dLLow32.5-35.6The [facility] Physician GroupComment on above:Performed By: #### CBC, BMP ####[address] [address] USAMonocytes (Bld) [#/Vol]0.5 10*3/uLNormal0.0-0.8The [facility] Physician GroupComment on above:Performed By: #### CBC, BMP ####[address] [address] [place] Monocytes/100 WBC (Bld)8.1 %Normal.The [facility] Physician GroupComment on above:Performed By: #### CBC, BMP ####[address] [address] USANeutrophils (Bld) [#/Vol]5.2 10*3/uLNormal1.8-7.7The [facility] Physician GroupComment on above:Performed By: #### CBC, BMP ####[place] [phone] [place] Neutrophils/100 WBC (Bld)77.4 %Normal.The [facility] Physician GroupComment on above:Performed By: #### CBC, BMP ####[address] [address] USANRBC%0.1 /100{WBC}Normal0-0.5The [facility] Physician GroupComment on above:Performed By: #### CBC, BMP ####[place] [address] USAPlatelet mean volume (Bld) [Entitic vol]7.9 fLNormal6.6-10.1The [facility] Physician GroupComment on above: Performed By: #### CBC, BMP ####[address] [address] USAPlatelets (Bld) [#/Vol]208 10*3/hKTmxvgf686-079Ppl [facility] Physician GroupComment on above:Performed By: #### CBC, BMP ####[address] [address] USARBC (Bld) [#/Vol]4.07 10*6/uLNormal3.90-5.60The [facility] Physician GroupComment on above:Performed By: #### CBC, BMP ####[address] [address] USAWBC (Bld) [#/Vol]6.7 10*3/uLNormal4.1-10.5The [facility] Physician GroupComment on above:Performed By: #### CBC, BMP ####[place] [phone] USAWhite Blood Count6.7 [CFU]/mLNormal4.1-10.5The [facility] Physician [facility] WesleyComment on above:Performed By: #### CBC, BMP ####[address] [address] USAGlucose Poct Glucometerson 73-50-3536Evflmcl [Mass/Vol]104 mg/dLNoDosher Memorial Hospital Physician [facility] WesleyComment on above:Result Comment: Random Glucose Reference Range is dependent on time and content of last meal. Glucose of more than 200 mg/dL in a nonstressed, ambulatory subject supports the diagnosis of Diabetes Mellitus.PERFORMED BY:[address]ISHSH[place], [place] [phone] MEDICAL ELÍAS GERMAN M.D.Performed By: #### GLULS ####Point of Care testing, Glucose [Mass/Vol]99 mg/dLNoTrumbull Memorial HospitalComment on above: Result Comment: Random Glucose Reference Range is dependent on time and content of last meal. Glucose of more than 200 mg/dL in a nonstressed, ambulatory subject supports the diagnosis of Diabetes Mellitus.PERFORMED BY:[address]SH[address], [place] [phone] MEDICAL ELÍAS GERMAN M.D.Performed By: #### GLULS ####Point of Care testing,Glucose [Mass/Vol]105 mg/dLNoDosher Memorial Hospital Physician [facility] WesleyComment on above:Result Comment: Random Glucose Reference Range is dependent on time and content of last meal. Glucose of more than 200 mg/dL in a nonstressed, ambulatory subject supports the diagnosis of Diabetes Mellitus.PERFORMED BY:[address]ScarlettSHAR, [place] [phone] MEDICAL ELÍAS GERMAN M.D.Performed By: #### GLULS ####Point of Care testing,XR chest 1V portableon 23-76-1642PG chest 1V portableNoDosher Memorial Hospital Physician [facility] WesleyArterial Blood Gason 62-53-1195QCR Base Excess9.2 mmol/LHigh-3.0-3.0The [facility] Physician GroupComment on above: Performed By: #### ABG ####Point of Care testing,ABG Frac Inspired O245 %Normal [facility] Physician GroupComment on above:Performed By: #### ABG ####Point of Care testing,ABG Oxygen Content7.2 mmol/LNormal6.6-9.7The [facility] Physician GroupComment on above:Performed By: #### ABG ####Point of Care testing,ABG Oxygen Skwneckplg11.3 %Low95.0-100.0The [facility] Physician GroupComment on above:Performed By: #### ABG ####Point of Care testing,ABG SPE538.4 mm[Hg]High 35.0-45.0The [facility] Physician GroupComment on above:Performed By: #### ABG ####Point of Care testing,ABG CZDH4ZyqkmlMnoNicklaus [facility] St[facility] Physician GroupComment on above:Performed By: #### ABG ####Point of Care testing,ABG PH7.65Qdvk0.35-7.45 [facility] Physician GroupComment on above:Performed By: #### ABG ####Point of Care testing,ABG PO257.6 mm[Hg]Low80.0-100.0[facility] [facility] Comment on above:Performed By: #### ABG ####Point of Care testing,ABG TV400 mL NormalThe [facility] Physician GroupComment on above:Performed By: #### ABG ####Point of Care testing,CO2 [Moles/Vol]35.7 mmol/LHigh23.0-27.0The [facility] Physician GroupComment on above:Performed By: #### ABG ####Point of Care testing,HCO3 (Bld) [Moles/Vol]34.2 mmol/LHigh23.0-29.0The [facility] Physician GroupComment on above:Performed By: #### ABG ####Point of Care testing, Respiratory CriticalNormNicklaus [facility]'s [facility] Physician GroupComment on above:Result Comment: Critical Value called on: 08/06/2025 at 04:09PERFORMED BY:[address] [place], [place] [phone] MEDICAL DIRECTORCELESTE GERMAN M.D.Performed By: #### ABG ####Point of Care testing,Set Respiratory Mfnt99[address] [place] [address] Physician GroupComment on above:Performed By: #### ABG ####Point of Care testing,VBG Draw SiteRight BrachialBaptist Health Bethes[facility] Physician GroupComment on above:Performed By: #### ABG ####Point of Care testing,Ventilator ModeACBaptist Health Bethesda Hospital East Physician GroupComment on above:Performed By: #### ABG ####Point of Care testing,Basic Metabolic Panelon 24-32-5146Vqqna gap [Moles/Vol]8.9 mmol/LNormal6.0-15.0The [facility] Physician GroupComment on above:Performed By: #### BMP, TRIG, MG, CBC ####[place] [address] USACalcium [Mass/Vol]8.6 mg/dLNormal8.6-10.3The [facility] Physician GroupComment on above: Performed By: #### BMP, TRIG, MG, CBC ####[place] [address] USAChloride [Moles/Vol]109 mmol/GUixd09-715Miq [facility] Physician GroupComment on above:Performed By: #### BMP, TRIG, MG, CBC ####[place] [id number] USACO2 [Moles/Vol]33.1 mmol/LHigh21.0-31.0The [facility] Physician GroupComment on above:Performed By: #### BMP, TRIG, MG, CBC ####[place] [phone] USACreatinine [Mass/Vol]1.07 mg/dLNormal 0.70-1.30The [facility] Physician GroupComment on above:Performed By: #### BMP, TRIG, MG, CBC ####[place] [phone] USACreatinine Clr Calc Ffarmgto45.60NormalThe [facility] Comment on above:Performed By: #### BMP, TRIG, MG, CBC ####[place] [phone] USAGFR/1.73 sq M.predicted MDRD (S/P/Bld) [Vol rate/Area]mL/min/{1.73_m2}NormalThe [facility] Comment on above:Performed By: #### BMP, TRIG, MG, CBC ####[place] [address] USAGlucose [Mass/Vol]101 mg/dL Hevx31-878Zbf [facility] Physician [facility] WesleyComment on above:Result Comment: Random Glucose Reference Range is dependent on time and content of last meal. Glucose of more than 200 mg/dL in a nonstressed, ambulatory subject supports the diagnosis of Diabetes Mellitus. ADA recommended reference rangePerformed By: #### BMP, TRIG, MG, CBC ####[place] [address] USAPotassium [Moles/Vol]4.0 mmol/LNormal3.5-5.1The [facility] Physician [facility] WesleyComment on above:Performed By: #### BMP, TRIG, MG, CBC ####[place] [address] USASodium [Moles/Vol]147 mmol/DBqui934-799Aly [facility] Physician [facility] WesleyComment on above: Performed By: #### BMP, TRIG, MG, CBC ####[place] [phone] USAUrea nitrogen [Mass/Vol]23 mg/dLNormal7-25The [facility] Physician GroupComment on above:Performed By: #### BMP, TRIG, MG, CBC ####[address] Complete Blood Count Auto Diffon 06-15-8532Zhcxhcrpw (Bld) [#/Vol]0.0 10*3/uL Normal0.0-0.2The [facility] Physician GroupComment on above:Result Comment: PERFORMED BY:[address] [place], [place] [phone] MEDICAL DIRECTORCELESTE GERMAN M.D.Performed By: #### BMP, TRIG, MG, CBC ####[place] [phone] USABasophils/100 WBC (Bld)0.2 %Normal.The [facility] Physician GroupComment on above:Performed By: #### BMP, TRIG, MG, CBC ####[place] [address] [place] Eosinophils (Bld) [#/Vol]0.1 10*3/uLNormal0.0-0.45The [facility] Comment on above:Performed By: #### BMP, TRIG, MG, CBC ####[place] [address] USAEosinophils/100 WBC (Bld)1.2 % Normal.The [facility] Physician GroupComment on above:Performed By: #### BMP, TRIG, MG, CBC ####[place] [address] USAErythrocyte distribution width (RBC) [Ratio]15.8 %High12.0-14.8The [facility] Physician GroupComment on above:Performed By: #### BMP, TRIG, MG, CBC ####[place] [phone] [place] Hematocrit (Bld) [Volume fraction]36.4 %Low38.8-50.0The [facility] Physician GroupComment on above:Performed By: #### BMP, TRIG, MG, CBC ####[place] [address] USAHemoglobin (Bld) [Mass/Vol]12.1 g/dLLow13.0-17.0The [facility] Physician GroupComment on above: Performed By: #### BMP, TRIG, MG, CBC ####[place] [address] USALymphocytes (Bld) [#/Vol]0.6 10*3/uLLow 1.00-4.8The [facility] Physician GroupComment on above:Performed By: #### BMP, TRIG, MG, CBC ####[place] [phone] USALymphocytes/100 WBC (Bld)10.3 %Normal.[facility] Comment on above:Performed By: #### BMP, TRIG, MG, CBC ####[place] [phone] [facility] (RBC) [Entitic mass]30.5 acMwrice78.5-35.2The [facility] Physician GroupComment on above:Performed By: #### BMP, TRIG, MG, CBC ####[address] (RBC) [Entitic vol]92.1 wIEllkcn99.5-101The [facility] Physician GroupComment on above:Performed By: #### BMP, TRIG, MG, CBC ####[place] [address] USAMean Corpuscular HGB Conc33.1 g/hKNsuhdb44.5-35.6The [facility] Physician GroupComment on above:Performed By: #### BMP, TRIG, MG, CBC ####[place] [address] USAMonocytes (Bld) [#/Vol]0.4 10*3/uL Normal0.0-0.8The [facility] Physician GroupComment on above:Performed By: #### BMP, TRIG, MG, CBC ####[place] [address] USAMonocytes/100 WBC (Bld)7.1 %Normal.[facility] Comment on above:Performed By: #### BMP, TRIG, MG, CBC ####[place] [address] USANeutrophils (Bld) [#/Vol]4.9 10*3/uLNormal1.8-7.7The [facility] Physician GroupComment on above:Performed By: #### BMP, TRIG, MG, CBC ####[place] [address] USANeutrophils/100 WBC (Bld)81.2 %Normal.The [facility] Physician GroupComment on above:Performed By: #### BMP, TRIG, MG, CBC ####[place] [address] USANRBC% 0.0 /100{WBC}Normal0-0.5The [facility] Physician GroupComment on above:Performed By: #### BMP, TRIG, MG, CBC ####[place] [address] USAPlatelet mean volume (Bld) [Entitic vol]7.5 fLNormal 6.6-10.1The [facility] Physician GroupComment on above:Performed By: #### BMP, TRIG, MG, CBC ####[place] [address] USAPlatelets (Bld) [#/Vol]208 10*3/mUNiywhn605-376Hmv [facility] Physician GroupComment on above:Performed By: #### BMP, TRIG, MG, CBC ####[place] [address] USARBC (Bld) [#/Vol]3.95 10*6/uLNormal3.90-5.60The [facility] Physician GroupComment on above:Performed By: #### BMP, TRIG, MG, CBC ####[place] [address] USAWBC (Bld) [#/Vol]6.0 10*3/uLNormal4.1-10.5The [facility] Physician GroupComment on above:Performed By: #### BMP, TRIG, MG, CBC ####[place] [address] USAWhite Blood Count6.0 [CFU]/mLNormal4.1-10.5The [facility] Physician GroupComment on above:Performed By: #### BMP, TRIG, MG, CBC ####[place] [address] [place] [address] USAGlucose Poct Glucometerson 08-06-2025 Glucose [Mass/Vol]147 mg/dLNoDosher Memorial Hospital Physician GroupComment on above: Result Comment: Random Glucose Reference Range is dependent on time and content of last meal. Glucose of more than 200 mg/dL in a nonstressed, ambulatory subject supports the diagnosis of Diabetes Mellitus.PERFORMED BY:[address] [place]DEL[place]IOJeremi[place], [place] [phone] MEDICAL ELÍAS GERMAN M.D.Performed By: #### GLULS ####Point of Care testing,Glucose [Mass/Vol]120 mg/dLNoDosher Memorial Hospital Physician GroupComment on above:Result Comment: Random Glucose Reference Range is dependent on time and content of last meal. Glucose of more than 200 mg/dL in a nonstressed, ambulatory subject supports the diagnosis of Diabetes Mellitus.PERFORMED BY:[address] [place], [place] [phone] MEDICAL ELÍAS GERMAN M.D.Performed By: #### GLULS ####Point of Care testing,Glucose [Mass/Vol]117 mg/dLNoDosher Memorial Hospital Physician GroupComment on above:Result Comment: Random Glucose Reference Range is dependent on time and content of last meal. Glucose of more than 200 mg/dL in a nonstressed, ambulatory subject supports the diagnosis of Diabetes Mellitus.PERFORMED BY:[address] [place], [place] [phone] MEDICAL ELÍAS GERMAN M.D.Performed By: #### GLULS ####Point of Care testing,Magnesiumon 08-06-2025 Magnesium [Mass/Vol]1.9 mg/dLNormal1.9-2.7The [facility] Physician GroupComment on above:Result Comment: PERFORMED BY:[address] [place], [place] [phone] MEDICAL ELÍAS GERMAN M.D.Performed By: #### BMP, TRIG, MG, CBC ####[facility] [address] [place] [address] USATriglycerideson 08-06-2025 Triglyceride [Mass/Vol]70 mg/oKPwsrzo25-051Hap [facility] Physician GroupComment on above:Result Comment: TRIG ATP III CLASSIFICATION TRIG less than 150 mg/dL Normal TRIG 150-199 mg/dL Borderline high TRIG 200-500 mg/dL High TRIG greater than 500 mg/dL Very high Standard traceable to the Center for Disease Conrtrol and Prevention (CDC) test method.PERFORMED BY:[facility] [place], [place] [phone] MEDICAL DIRECTORCELESTE GERMAN M.D.Performed By: #### BMP, TRIG, MG, CBC ####[place] [address] [place] [address] USAXR chest 1V portable on 19-16-6039RD chest 1V portableNormalThe [facility] Physician [facility] WesleyArterial Blood Gason 92-23-4982PEQ Base Excess8.4 mmol/LHigh-3.0-3.0The [facility] Physician GroupComment on above:Performed By: #### ABG ####Point of Care testing,ABG Frac Inspired O255 %NormalThe [facility] Physician GroupComment on above:Performed By: #### ABG ####Point of Care testing,ABG Oxygen Content7.3 mmol/LNormal6.6-9.7The [facility] Physician GroupComment on above:Performed By: #### ABG ####Point of Care testing,ABG Oxygen Szpycwoozv69.3 %Ybeppe77.0-100.0 The [facility] Physician GroupComment on above:Performed By: #### ABG ####Point of Care testing,ABG PYY513.7 mm[Hg]High35.0-45.0The [facility] Physician [facility] Comment on above:Performed By: #### ABG ####Point of Care testing,ABG PEEP5 NormalThe [facility] Physician GroupComment on above:Performed By: #### ABG ####Point of Care testing,ABG PH7.58Ajuu9.35-7.45The [facility] Comment on above:Performed By: #### ABG ####Point of Care testing,ABG PO274.4 mm[Hg]Low80.0-100.0The [facility] Physician GroupComment on above:Performed By: #### ABG ####Point of Care testing,ABG TV500 mLNormalThe [facility] Physician GroupComment on above:Performed By: #### ABG ####Point of Care testing,CO2 [Moles/Vol]34.4 mmol/LHigh23.0-27.0The [facility] Physician GroupComment on above:Performed By: #### ABG ####Point of Care testing,HCO3 (Bld) [Moles/Vol] 33.0 mmol/LHigh23.0-29.0The [facility] Physician GroupComment on above:Performed By: #### ABG ####Point of Care testing,Respiratory CriticalNoDosher Memorial Hospital Physician GroupComment on above:Result Comment: Critical Value called on: 08/05/2025 at 04:04PERFORMED BY:[facility] [place], [place] [phone] MEDICAL DIRECTORCELESTE GERMAN M.D.Performed By: #### ABG ####Point of Care testing,Set Respiratory Rate12 NormalThe [facility] Physician GroupComment on above:Performed By: #### ABG ####Point of Care testing,VBG Draw SiteRight BrachialNoDosher Memorial Hospital Physician GroupComment on above:Performed By: #### ABG ####Point of Care testing,Ventilator ModeACNoDosher Memorial Hospital Physician GroupComment on above: Performed By: #### ABG ####Point of Care testing,Basic Metabolic Panelon 59-78-0347Cttbx gap [Moles/Vol]8.6 mmol/LNormal6.0-15.0The [facility] Physician GroupComment on above:Performed By: #### BMP, CBC ####[facility] [facility]at[facility] [place] [address] USACalcium [Mass/Vol]8.4 mg/dLLow 8.6-10.3The [facility] Physician GroupComment on above:Performed By: #### BMP, CBC ####[address] [address] [place] Chloride [Moles/Vol]107 mmol/DFngjts55-223Rad [facility] Physician GroupComment on above:Performed By: #### BMP, CBC ####[address] [address] USACO2 [Moles/Vol]31.8 mmol/LHigh21.0-31.0The [facility] Physician GroupComment on above:Performed By: #### BMP, CBC ####[address] [address] [place] Creatinine [Mass/Vol]1.06 mg/dLNormal0.70-1.30The [facility] Comment on above:Performed By: #### BMP, CBC ####[place] [phone] USACreatinine Clr Calc Nepxfutm68.06 NormalThe [facility] Physician GroupComment on above:Result Comment: PERFORMED BY:[address] [place], [place] [phone] MEDICAL DIRECTORCELESTE GERMAN M.D.Performed By: #### BMP, CBC ####[address] [address] [place] GFR/1.73 sq M.predicted MDRD (S/P/Bld) [Vol rate/Area]mL/min/{1.73_m2}NormalThe [facility] Physician GroupComment on above:Performed By: #### BMP, CBC ####[address] [address] USAGlucose [Mass/Vol]131 mg/kAGigw45-424Wdm [facility] Physician GroupComment on above: Result Comment: Random Glucose Reference Range is dependent on time and content of last meal. Glucose of more than 200 mg/dL in a nonstressed, ambulatory subject supports the diagnosis of Diabetes Mellitus. ADA recommended reference rangePerformed By: #### BMP, CBC ####[address] [place] [address] USAPotassium [Moles/Vol]3.4 mmol/LLow3.5-5.1The [facility] Physician GroupComment on above:Performed By: #### BMP, CBC ####[place] [address] USASodium [Moles/Vol]144 mmol/FQxbkdu021-313Gcb [facility] Physician GroupComment on above: Performed By: #### BMP, CBC ####[place] [address] USAUrea nitrogen [Mass/Vol]27 mg/dLHigh7-25The [facility] Physician GroupComment on above:Performed By: #### BMP, CBC ####[address] Complete Blood Count Auto Diffon 68-85-5662Uheabgcqv (Bld) [#/Vol]0.0 10*3/uL Normal0.0-0.2The [facility] Physician [facility] WesleyComment on above:Result Comment: PERFORMED BY:[address] [place], [place] [phone] MEDICAL DIRECTORCELESTE GERMAN M.D.Performed By: #### BMP, CBC ####[place] [address] USABasophils/100 WBC (Bld)0.5 %Normal.The [facility] Physician GroupComment on above:Performed By: #### BMP, CBC ####[place] [address] USAEosinophils (Bld) [#/Vol]0.1 10*3/uLNormal 0.0-0.45The [facility] Physician [facility] WesleyComment on above:Performed By: #### BMP, CBC ####[place] [address] [place] Eosinophils/100 WBC (Bld)1.8 %Normal.The [facility] Physician GroupComment on above:Performed By: #### BMP, CBC ####[facility] [address] [place] [address] USAErythrocyte distribution width (RBC) [Ratio]15.4 % High12.0-14.8The [facility] Physician GroupComment on above:Performed By: #### BMP, CBC ####[place] [address] USAHematocrit (Bld) [Volume fraction]34.2 %Low38.8-50.0The [facility] Physician GroupComment on above:Performed By: #### BMP, CBC ####[place] [address] USAHemoglobin (Bld) [Mass/Vol]11.3 g/dL Low13.0-17.0The [facility] Physician GroupComment on above:Performed By: #### BMP, CBC ####[place] [address] USALymphocytes (Bld) [#/Vol]0.5 10*3/uLLow1.00-4.8The [facility] Comment on above:Performed By: #### BMP, CBC ####[place] [address] USALymphocytes/100 WBC (Bld)11.2 %Normal. The [facility] Physician GroupComment on above:Performed By: #### BMP, CBC ####[place] [address] USAMCH (RBC) [Entitic mass]30.5 wqPklpme85.5-35.2The [facility] Physician GroupComment on above:Performed By: #### BMP, CBC ####[place] [phone] USAMCV (RBC) [Entitic vol]92.6 iAClrlpo24.5-101 The [facility] Physician GroupComment on above:Performed By: #### BMP, CBC ####[place] [address] USAMean Corpuscular HGB Conc32.9 g/dLNtfwvp41.5-35.6The [facility] Physician GroupComment on above:Performed By: #### BMP, CBC ####[address] [address] USAMonocytes (Bld) [#/Vol]0.5 10*3/uLNormal 0.0-0.8The [facility] Physician GroupComment on above:Performed By: #### BMP, CBC ####[place] [phone] [place] Monocytes/100 WBC (Bld)9.7 %Normal.The [facility] Physician GroupComment on above:Performed By: #### BMP, CBC ####[place] [address] USANeutrophils (Bld) [#/Vol]3.6 10*3/uLNormal1.8-7.7The [facility] Physician GroupComment on above:Performed By: #### BMP, CBC ####[place] [address] [place] Neutrophils/100 WBC (Bld)76.8 %Normal.The [facility] Physician GroupComment on above:Performed By: #### BMP, CBC ####[address] [address] USANRBC%0.2 /100{WBC}Normal0-0.5The [facility] Physician GroupComment on above:Performed By: #### BMP, CBC ####[place] [phone] USAPlatelet mean volume (Bld) [Entitic vol]7.3 fLNormal6.6-10.1The [facility] Physician GroupComment on above: Performed By: #### BMP, CBC ####[address] [address] USAPlatelets (Bld) [#/Vol]191 10*3/hPJmjhmt938-277Pkr [facility] Physician GroupComment on above:Performed By: #### BMP, CBC ####[place] [address] USARBC (Bld) [#/Vol]3.69 10*6/uLLow3.90-5.60The [facility] Physician GroupComment on above:Performed By: #### BMP, CBC ####[address] [address] USAWBC (Bld) [#/Vol]4.7 10*3/uLNormal4.1-10.5The [facility] Physician GroupComment on above:Performed By: #### BMP, CBC ####[address] [address] USAWhite Blood Count4.7 [CFU]/mLNormal4.1-10.5The [facility] Physician GroupComment on above:Performed By: #### BMP, CBC ####[address] [address] USAGlucose Poct Glucometerson 42-33-1050Daldpxr [Mass/Vol]139 mg/dLNoDosher Memorial Hospital Physician [facility] WesleyComment on above:Result Comment: Random Glucose Reference Range is dependent on time and content of last meal. Glucose of more than 200 mg/dL in a nonstressed, ambulatory subject supports the diagnosis of Diabetes Mellitus.PERFORMED BY:[address] [place], [place] [phone] MEDICAL ELÍAS GERMAN M.D.Performed By: #### GLULS ####Point of Care testing, Glucose [Mass/Vol]85 mg/dLNoDosher Memorial Hospital Physician GroupComment on above: Result Comment: Random Glucose Reference Range is dependent on time and content of last meal. Glucose of more than 200 mg/dL in a nonstressed, ambulatory subject supports the diagnosis of Diabetes Mellitus.PERFORMED BY:[address] [place], [place] [phone] MEDICAL ELÍAS GERMAN M.D.Performed By: #### GLULS ####Point of Care testing,Glucose [Mass/Vol]127 mg/dLNoDosher Memorial Hospital Physician GroupComment on above:Result Comment: Random Glucose Reference Range is dependent on time and content of last meal. Glucose of more than 200 mg/dL in a nonstressed, ambulatory subject supports the diagnosis of Diabetes Mellitus.PERFORMED BY:[place] [address] [place], [place] [phone] MEDICAL ELÍAS GERMAN M.D.Performed By: #### GLULS ####Point of Care testing,Glucose [Mass/Vol]168 mg/dLBaptist Health [facility]hes[facility] Physician [facility] WesleyComment on above:Result Comment: Random Glucose Reference Range is dependent on time and content of last meal. Glucose of more than 200 mg/dL in a nonstressed, ambulatory subject supports the diagnosis of Diabetes Mellitus.PERFORMED BY:[place] [address] [place], [place] [phone] MEDICAL ELÍAS GERMAN M.D.Performed By: #### GLULS ####Point of Care testing,XR chest 1V portableon 55-21-7129ZH chest 1V portableNoDosher Memorial Hospital Physician [facility] WesleyAerobic Culture on 77-86-5664Yfiokdk CultureNoDosher Memorial Hospital Physician [facility] WesleyComment on above: Performed By: #### GS, AERC ####[address] [address] USAAnti-Xa UF Heparinon 66-86-7011Iwwo-Xa UF Heparin 0.43Gpcvyk8.30-0.70The [facility] Physician [facility] WesleyComment on above:Result Comment: Use the aPTT protocol when triglycerides are > 800 mg/dL, total bilirubin is > 20 mg/dL and/or patient has received a DOAC, Fondaparinux or LMWH within 72 hours AND baseline anti-Xa level is > 0.7 units/mLPERFORMED BY:[address] CANDELARIOJeremiSHAR, [place] [phone] MEDICAL ELÍAS GERMAN M.D.Performed By: #### UFHEP ####[address] [address] USAArterial Blood Gason 74-04-9803ZWZ Base Excess3.2 mmol/LHigh-3.0-3.0The [facility] Physician Group Comment on above:Performed By: #### ABG ####Point of Care testing,ABG Frac Inspired O265 %NormalThe [facility] Physician GroupComment on above:Performed By: #### ABG ####Point of Care testing,ABG Oxygen Content6.9 mmol/LNormal6.6-9.7The [facility] Physician GroupComment on above:Performed By: #### ABG ####Point of Care testing,ABG Oxygen Nwyhniuczt91.4 %Low95.0-100.0The [facility] Physician GroupComment on above:Performed By: #### ABG ####Point of Care testing,ABG PCO2 45.5 mm[Hg]High35.0-45.0The [facility] Physician GroupComment on above:Performed By: #### ABG ####Point of Care testing,ABG PATQ6WcwpbyXsq [facility] Physician GroupComment on above:Performed By: #### ABG ####Point of Care testing,ABG PH 7.94Zfjzsr7.35-7.45The [facility] Physician GroupComment on above:Performed By: #### ABG ####Point of Care testing,ABG PO270.1 mm[Hg]Low80.0-100.0The [facility] Physician GroupComment on above:Performed By: #### ABG ####Point of Care testing,ABG TV500 mLNormalThe [facility] Physician GroupComment on above: Performed By: #### ABG ####Point of Care testing,CO2 [Moles/Vol]29.7 mmol/LHigh 23.0-27.0The [facility] Physician GroupComment on above:Performed By: #### ABG ####Point of Care testing,HCO3 (Bld) [Moles/Vol]28.3 mmol/URjszak93.0-29.0The [facility] Physician GroupComment on above:Performed By: #### ABG ####Point of Care testing,Respiratory CriticalNormNicklaus [facility]'s [facility] St[facility] Physician GroupComment on above:Result Comment: Critical Value called on: 2025 at 06:09PERFORMED BY:[address] [address] [address] [address] [place], [place] [phone] MEDICAL DIRECTORCELESTE GERMAN M.D.Performed By: #### ABG ####Point of Care testing,Set Respiratory Kejv38MdnlvyXgbBaptist Health [facility] Physician GroupComment on above:Performed By: #### ABG ####Point of Care testing,VBG Draw SiteRight RadialBaptist Health Bethesda Hospital East Physician GroupComment on above:Performed By: #### ABG ####Point of Care testing,Ventilator ModeACNormal The [facility] Physician GroupComment on above:Performed By: #### ABG ####Point of Care testing,Basic Metabolic Panelon 60-55-7592Utqmp gap [Moles/Vol]10.5 mmol/LNormal6.0-15.0The [facility] Physician GroupComment on above:Performed By: #### BMP, CBC ####[address] [address] USACalcium [Mass/Vol]8.5 mg/dLLow8.6-10.3The [facility]ician Group Comment on above:Performed By: #### BMP, CBC ####[address] [address] USAChloride [Moles/Vol]107 mmol/LNormal 98-107The [facility] Physician GroupComment on above:Performed By: #### BMP, CBC ####[address] [address] USACO2 [Moles/Vol]27.9 mmol/NTmvuzj23.0-31.0The [facility] Physician GroupComment on above:Performed By: #### BMP, CBC ####[address] [address] USACreatinine [Mass/Vol]1.11 mg/dLNormal0.70-1.30The [facility] Physician GroupComment on above:Performed By: #### BMP, CBC ####[address] [address] [place] Creatinine Clr Calc Soxugvql15.60NormKnox Community Hospitale [facility] Physician GroupComment on above:Result Comment: PERFORMED BY:[address] [address] [place], [place] [phone] MEDICAL DIRECTORCELESTE GERMAN M.D.Performed By: #### LISA, CBC ####[address] [address] USAGFR/1.73 sq M.predicted MDRD (S/P/Bld) [Vol rate/Area]mL/min/{1.73_m2}NormalThe [facility] Physician GroupComment on above: Performed By: #### LISA, CBC ####[address] [address] USAGlucose [Mass/Vol]88 mg/xXCnnaca87-470Sox [facility] Physician GroupComment on above:Result Comment: Random Glucose Reference Range is dependent on time and content of last meal. Glucose of more than 200 mg/dL in a nonstressed, ambulatory subject supports the diagnosis of Diabetes Mellitus. ADA recommended reference rangePerformed By: #### LISA, CBC ####[address] [address] USAPotassium [Moles/Vol] 3.4 mmol/LLow3.5-5.1The [facility] Physician GroupComment on above:Performed By: #### LISA, CBC ####[place] [phone] USASodium [Moles/Vol]142 mmol/MDixayj859-877Jus [facility]ician [facility] Comment on above:Performed By: #### LISA, CBC ####[address] [address] USAUrea nitrogen [Mass/Vol]34 mg/dLHigh 7-25The [facility] Physician GroupComment on above:Performed By: #### LISA, CBC ####[place] [phone] [facility] Complete Blood Count Auto Diffon 97-05-3335Jfucurxzt (Bld) [#/Vol]0.0 10*3/uL Normal0.0-0.2The [facility] Physician GroupComment on above:Result Comment: PERFORMED BY:[address] [phone] MEDICAL DIRECTORCELESTE GERMAN M.D.Performed By: #### BMP, CBC ####[place] [phone] USABasophils/100 WBC (Bld)0.3 %Normal.The [facility] Physician GroupComment on above:Performed By: #### BMP, CBC ####[place] [address] USAEosinophils (Bld) [#/Vol]0.0 10*3/uLNormal 0.0-0.45The [facility] Physician GroupComment on above:Performed By: #### BMP, CBC ####[place] [address] [place] Eosinophils/100 WBC (Bld)0.6 %Normal.The [facility] Physician GroupComment on above:Performed By: #### BMP, CBC ####[place] [address] USAErythrocyte distribution width (RBC) [Ratio]15.8 % High12.0-14.8The [facility] Physician GroupComment on above:Performed By: #### BMP, CBC ####[place] [address] USAHematocrit (Bld) [Volume fraction]35.2 %Low38.8-50.0The [facility] Physician GroupComment on above:Performed By: #### BMP, CBC ####[place] [phone] USAHemoglobin (Bld) [Mass/Vol]11.6 g/dL Low13.0-17.0The [facility] Physician GroupComment on above:Performed By: #### BMP, CBC ####[place] [phone] USALymphocytes (Bld) [#/Vol]0.4 10*3/uLLow1.00-4.8The [facility] Comment on above:Performed By: #### BMP, CBC ####[address] [address] USALymphocytes/100 WBC (Bld)9.6 %Normal. The [facility] Physician GroupComment on above:Performed By: #### BMP, CBC ####[address] (RBC) [Entitic mass]30.5 ykQyjqty69.5-35.2The [facility] Physician GroupComment on above:Performed By: #### BMP, CBC ####[address] (RBC) [Entitic vol]92.2 lWZmtchl09.5-101 The [facility] Physician GroupComment on above:Performed By: #### BMP, CBC ####[place] [address] USAMean Corpuscular HGB Conc33.0 g/nQHqexka85.5-35.6The [facility] Physician GroupComment on above:Performed By: #### BMP, CBC ####[place] [address] USAMonocytes (Bld) [#/Vol]0.5 10*3/uLNormal 0.0-0.8The [facility] Physician GroupComment on above:Performed By: #### BMP, CBC ####[place] [address] [place] Monocytes/100 WBC (Bld)11.2 %Normal.The [facility] Physician GroupComment on above:Performed By: #### BMP, CBC ####[place] [address] USANeutrophils (Bld) [#/Vol]3.4 10*3/uLNormal1.8-7.7The [facility] Physician GroupComment on above:Performed By: #### BMP, CBC ####[place] [address] [place] Neutrophils/100 WBC (Bld)78.3 %Normal.The [facility] Physician GroupComment on above:Performed By: #### BMP, CBC ####[address] [address] USANRBC%0.1 /100{WBC}Normal0-0.5The [facility] Physician GroupComment on above:Performed By: #### BMP, CBC ####[address] [address] USAPlatelet mean volume (Bld) [Entitic vol]7.2 fLNormal6.6-10.1The [facility] Physician GroupComment on above: Performed By: #### BMP, CBC ####[address] [address] USAPlatelets (Bld) [#/Vol]181 10*3/wMTlqjmp494-358Qvj [facility] Physician GroupComment on above:Performed By: #### BMP, CBC ####[address] [address] USARBC (Bld) [#/Vol]3.82 10*6/uLLow3.90-5.60The [facility] Physician GroupComment on above:Performed By: #### BMP, CBC ####[address] [address] USAWBC (Bld) [#/Vol]4.3 10*3/uLNormal4.1-10.5The [facility] Physician GroupComment on above:Performed By: #### BMP, CBC ####[address] [address] USAWhite Blood Count4.3 [CFU]/mLNormal4.1-10.5The [facility] Physician GroupComment on above:Performed By: #### BMP, CBC ####[address] [address] USAECG 12 lead ECGon 28-31-2961WUU 12 lead ECGBaptist Health Bethesda Hospital East Physician [facility] WesleyGlucose Poct Glucometerson 31-03-1711Zmdnvnf5Lxn6: Cleaned MeterNoDosher Memorial Hospital Physician GroupComment on above:Result Comment: PERFORMED BY:[address] [place], [place] [phone] MEDICAL DIRECTORCELESTE GERMAN M.D.Performed By: #### GLULS ####Point of Care testing,Glucose [Mass/Vol]126 mg/dLBaptist Health Bethesda Hospital East Physician GroupComment on above:Result Comment: Random Glucose Reference Range is dependent on time and content of last meal. Glucose of more than 200 mg/dL in a nonstressed, ambulatory subject supports the diagnosis of Diabetes Mellitus.Performed By: #### GLULS ####Point of Care testing,Commemt1 Glu2: Cleaned MeterNoDosher Memorial Hospital Physician GroupComment on above:Result Comment: PERFORMED BY:[facility] AVScarlettJeremiSHAR, [place] [phone] MEDICAL DIRECTORCELESTE GERMAN M.D.Performed By: #### GLULS ####Point of Care testing,Glucose [Mass/Vol]111 mg/dLNoDosher Memorial Hospital Physician GroupComment on above:Result Comment: Random Glucose Reference Range is dependent on time and content of last meal. Glucose of more than 200 mg/dL in a nonstressed, ambulatory subject supports the diagnosis of Diabetes Mellitus.Performed By: #### GLULS ####Point of Care testing,Gram Stain on 21-74-2127Usmyeeomiet observation Gram stain Nom (Unsp spec)Gram Stain Result 3+ White Blood Cells 1+ Epithelial Cells 1+ Gram Positive Cocci PERFORMED BY: [facility] [address] [place] [address] PATHOLOGIST WORK ORDER CLERK CELESTE GERMAN M.D.NormalThe [facility] Physician GroupComment on above: Performed By: #### GS, AERC ####[facility] [place] [address] USATriglycerideson 89-21-7130Wiuyqaihgjny [Mass/Vol]109 mg/zXIbudyv14-431Hkm [facility] Physician GroupComment on above:Result Comment: TRIG ATP III CLASSIFICATION TRIG less than 150 mg/dL Normal TRIG 150-199 mg/dL Borderline high TRIG 200-500 mg/dL High TRIG greater than 500 mg/dL Very high Standard traceable to the Center for Disease Conrtrol and Prevention (CDC) test method.PERFORMED BY:[address] [place], [place] [phone] MEDICAL ELÍAS GERMAN M.D.Performed By: #### TRIG ####[address] [address] USAXR chest 1V portableon 54-72-0538DB chest 1V portableNormalThe [facility] Physician GroupAnti-Xa UF Heparinon 87-98-5340Woca-Xa UF Heparin0.35Normal 0.30-0.70The [facility] Physician [facility] WesleyComment on above:Result Comment: Use the aPTT protocol when triglycerides are > 800 mg/dL, total bilirubin is > 20 mg/dL and/or patient has received a DOAC, Fondaparinux or LMWH within 72 hours AND baseline anti-Xa level is > 0.7 units/mLPERFORMED BY:[address] [place], [place] [phone] MEDICAL ELÍAS GERMAN M.D.Performed By: #### UFHEP ####[address] [address] USAArterial Blood Gason 75-09-0122LGA Base Excess-0.6 mmol/LNormal-3.0-3.0The [facility] Physician Group Comment on above:Performed By: #### ABG ####Point of Care testing,ABG Frac Inspired O260 %NormalThe [facility] Physician GroupComment on above:Performed By: #### ABG ####Point of Care testing,ABG Oxygen Content6.7 mmol/LNormal6.6-9.7The [facility] Physician [facility] WesleyComment on above:Performed By: #### ABG ####Point of Care testing,ABG Oxygen Uvenuvaufy51.9 %Low95.0-100.0The [facility] Physician GroupComment on above:Performed By: #### ABG ####Point of Care testing,ABG PCO2 47.1 mm[Hg]High35.0-45.0The [facility] Physician GroupComment on above:Performed By: #### ABG ####Point of Care testing,ABG CXRE7NzgsozFnuDosher Memorial Hospital Physician GroupComment on above:Performed By: #### ABG ####Point of Care testing,ABG PH 7.87Xibtwa8.35-7.45The [facility] Physician GroupComment on above:Performed By: #### ABG ####Point of Care testing,ABG PO275.5 mm[Hg]Low80.0-100.0The [facility] Physician GroupComment on above:Performed By: #### ABG ####Point of Care testing,ABG TV500 mLNormalThe [facility] Physician GroupComment on above: Performed By: #### ABG ####Point of Care testing,CO2 [Moles/Vol]26.7 mmol/L Njjhup00.0-27.0The [facility] Physician GroupComment on above:Performed By: #### ABG ####Point of Care testing,HCO3 (Bld) [Moles/Vol]25.3 mmol/TKcrzoa75.0-29.0 The [facility] Physician GroupComment on above:Performed By: #### ABG ####Point of Care testing,Respiratory CriticalBaptist Health Bethesda Hospital East Physician GroupComment on above:Result Comment: Critical Value called on: 08/03/2025 at 04:44PERFORMED BY:[facility] [place], [place] [phone] MEDICAL DIRECTORCELESTE GERMAN M.D.Performed By: #### ABG ####Point of Care testing,Set Respiratory Jjyy60WazzddPdoDosher Memorial Hospital Physician GroupComment on above:Performed By: #### ABG ####Point of Care testing,VBG Draw SiteRight RadialBaptist Health Bethesda Hospital East Physician GroupComment on above:Performed By: #### ABG ####Point of Care testing,Ventilator ModeACNormal [facility] Physician GroupComment on above:Performed By: #### ABG ####Point of Care testing,Basic Metabolic Panelon 09-64-9204Dlpfn gap [Moles/Vol]7.9 mmol/LNormal6.0-15.0The [facility] Physician GroupComment on above:Performed By: #### CBC, BMP ####[address] [address] USACalcium [Mass/Vol]8.1 mg/dLLow8.6-10.3The [facility] Physician [facility] Comment on above:Performed By: #### CBC, BMP ####[address] [address] USAChloride [Moles/Vol]106 mmol/LNormal 98-107The [facility] Physician GroupComment on above:Performed By: #### CBC, BMP ####[address] [address] USACO2 [Moles/Vol]28.9 mmol/DFliypc86.0-31.0The [facility] Physician GroupComment on above:Performed By: #### CBC, BMP ####[address] [address] USACreatinine [Mass/Vol]1.49 mg/dLHigh0.70-1.30The [facility] Physician GroupComment on above:Performed By: #### CBC, BMP ####[address] [address] [place] Creatinine Clr Calc Kitrxvrw89.84NormalThe [facility] Physician GroupComment on above:Result Comment: PERFORMED BY:[address] [place], [place] [phone] MEDICAL ELÍAS GERMAN M.D.Performed By: #### CBC, BMP ####[address] [address] USAGFR/1.73 sq M.predicted MDRD (S/P/Bld) [Vol rate/Area]51.439 mL/min/{1.73_m2}NormalThe [facility] Physician GroupComment on above:Performed By: #### CBC, BMP ####[address] [address] USAGlucose [Mass/Vol]87 mg/wQTnvwtm73-391Bsn [facility] Physician GroupComment on above:Result Comment: Random Glucose Reference Range is dependent on time and content of last meal. Glucose of more than 200 mg/dL in a nonstressed, ambulatory subject supports the diagnosis of Diabetes Mellitus. ADA recommended reference rangePerformed By: #### CBC, BMP ####[address] [address] [place] [address] USAPotassium [Moles/Vol] 3.8 mmol/LNormal3.5-5.1The [facility] Physician GroupComment on above:Performed By: #### CBC, BMP ####[address] [address] USASodium [Moles/Vol]139 mmol/GMeyqwh918-303Inf [facility] Physician GroupComment on above:Performed By: #### CBC, BMP ####[address] [address] USAUrea nitrogen [Mass/Vol]50 mg/dLHigh 7-e [facility] Physician GroupComment on above:Performed By: #### CBC, BMP ####[place] [phone] [facility] Complete Blood Count Auto Diffon 85-21-1348Lelxihwjn (Bld) [#/Vol]0.0 10*3/uL Normal0.0-0.2The [facility] Physician [facility] WesleyComment on above:Result Comment: PERFORMED BY:[address] [place], [place] [phone] MEDICAL DIRECTORCELESTE GERMAN M.D.Performed By: #### CBC, BMP ####[place] [address] USABasophils/100 WBC (Bld)0.2 %Normal.The [facility] Physician GroupComment on above:Performed By: #### CBC, BMP ####[address] [address] USAEosinophils (Bld) [#/Vol]0.0 10*3/uLNormal 0.0-0.45The [facility] Physician [facility] WesleyComment on above:Performed By: #### CBC, BMP ####[address] [address] [place] Eosinophils/100 WBC (Bld)0.4 %Normal.The [facility] Physician GroupComment on above:Performed By: #### CBC, BMP ####[place] [phone] USAErythrocyte distribution width (RBC) [Ratio]15.4 % High12.0-14.8The [facility] Physician GroupComment on above:Performed By: #### CBC, BMP ####[place] [address] USAHematocrit (Bld) [Volume fraction]31.4 %Low38.8-50.0The [facility] Physician GroupComment on above:Performed By: #### CBC, BMP ####[place] [address] USAHemoglobin (Bld) [Mass/Vol]10.4 g/dL Low13.0-17.0The [facility] Physician GroupComment on above:Performed By: #### CBC, BMP ####[place] [address] USALymphocytes (Bld) [#/Vol]0.4 10*3/uLLow1.00-4.8The [facility] Group Comment on above:Performed By: #### CBC, BMP ####[place] [address] USALymphocytes/100 WBC (Bld)7.5 %Normal. The [facility] Physician GroupComment on above:Performed By: #### CBC, BMP ####[place] [address] USAMCH (RBC) [Entitic mass]31.1 uuMwdcyw50.5-35.2The [facility] Physician GroupComment on above:Performed By: #### CBC, BMP ####[place] [address] USAMCV (RBC) [Entitic vol]93.6 bHIbpuam65.5-101 The [facility] Physician GroupComment on above:Performed By: #### CBC, BMP ####[place] [address] USAMean Corpuscular HGB Conc33.2 g/sMStvekl61.5-35.6The [facility] Physician GroupComment on above:Performed By: #### CBC, BMP ####[place] [address] USAMonocytes (Bld) [#/Vol]0.6 10*3/uLNormal 0.0-0.8The [facility] Physician GroupComment on above:Performed By: #### CBC, BMP ####[place] [address] [place] Monocytes/100 WBC (Bld)12.5 %Normal.The [facility] Physician GroupComment on above:Performed By: #### CBC, BMP ####[place] [address] USANeutrophils (Bld) [#/Vol]4.0 10*3/uLNormal1.8-7.7The [facility] Physician GroupComment on above:Performed By: #### CBC, BMP ####[place] [address] [place] Neutrophils/100 WBC (Bld)79.4 %Normal.The [facility] Physician GroupComment on above:Performed By: #### CBC, BMP ####[place] [address] USANRBC%0.2 /100{WBC}Normal0-0.5The [facility] Physician GroupComment on above:Performed By: #### CBC, BMP ####[place] [phone] USAPlatelet mean volume (Bld) [Entitic vol]7.7 fLNormal6.6-10.1The [facility] Physician GroupComment on above: Performed By: #### CBC, BMP ####[place] [address] USAPlatelets (Bld) [#/Vol]180 10*3/nBPhuwiz316-650Iuv [facility] Physician [facility] WesleyComment on above:Performed By: #### CBC, BMP ####[address] [address] USARBC (Bld) [#/Vol]3.36 10*6/uLLow3.90-5.60The [facility] Physician [facility] WesleyComment on above:Performed By: #### CBC, BMP ####[place] [address] USAWBC (Bld) [#/Vol]5.1 10*3/uLNormal4.1-10.5The [facility] Physician [facility] WesleyComment on above:Performed By: #### CBC, BMP ####[place] [address] USAWhite Blood Count5.1 [CFU]/mLNormal4.1-10.5The [facility] Physician [facility] WesleyComment on above:Performed By: #### CBC, BMP ####[place] [address] USAXR chest 1V portableon 10-92-1217LE chest 1V portableNormalThe [facility] Physician GroupAnti-Xa UF Heparinon 31-06-6166Wbip- Xa UF Heparin0.00Lbguaa8.30-0.70The [facility] Physician [facility] WesleyComment on above: Result Comment: Use the aPTT protocol when triglycerides are > 800 mg/dL, total bilirubin is > 20 mg/dL and/or patient has received a DOAC, Fondaparinux or LMWH within 72 hours AND baseline anti-Xa level is > 0.7 units/mLPERFORMED BY:[address] [place], [place] [phone] MEDICAL DIRECTORCELSETE GERMAN M.D.Performed By: #### UFHEP ####[address] [address] USAAnti-Xa UF Heparin0.65Xpzoze9.30-0.70The [facility] Physician [facility] WesleyComment on above:Result Comment: Use the aPTT protocol when triglycerides are > 800 mg/dL, total bilirubin is > 20 mg/dL and/or patient has received a DOAC, Fondaparinux or LMWH within 72 hours AND baseline anti-Xa level is > 0.7 units/mLPERFORMED BY:[facility] [place], [place] [phone] MEDICAL DIRECTORCELESTE GERMAN M.D.Performed By: #### UFHEP ####[facility] [place] [address] USAArterial Blood Gason 65-33-8071VZU Base Excess-5.8 mmol/LLow-3.0-3.0The [facility] Physician GroupComment on above:Performed By: #### ABG ####Point of Care testing,ABG Frac Inspired O265 %NormalThe [facility] Physician GroupComment on above:Performed By: #### ABG ####Point of Care testing,ABG Oxygen Content7.0 mmol/LNormal6.6-9.7The [facility] Physician GroupComment on above:Performed By: #### ABG ####Point of Care testing,ABG Oxygen Fxxswlyiyr31.5 %Yrcjec27.0-100.0 The [facility] Physician GroupComment on above:Performed By: #### ABG ####Point of Care testing,ABG ROU916.8 mm[Hg]Gkesvk98.0-45.0The [facility] Physician [facility] Comment on above:Performed By: #### ABG ####Point of Care testing,ABG PEEP5 NormalThe [facility] Physician GroupComment on above:Performed By: #### ABG ####Point of Care testing,ABG PH7.34Low7.35-7.45The [facility] Physician [facility] Comment on above:Performed By: #### ABG ####Point of Care testing,ABG PO287.9 mm[Hg]Jgvovt15.0-100.0The [facility] Physician GroupComment on above:Performed By: #### ABG ####Point of Care testing,ABG TV500 mLNormalThe [facility] Physician GroupComment on above:Performed By: #### ABG ####Point of Care testing,CO2 [Moles/Vol]20.5 mmol/LLow23.0-27.0The [facility] Physician GroupComment on above: Performed By: #### ABG ####Point of Care testing,HCO3 (Bld) [Moles/Vol]19.4 mmol/LLow23.0-29.0The [facility] Physician GroupComment on above:Performed By: #### ABG ####Point of Care testing,Respiratory CriticalBaptist Health Bethes[facility] Hospital East Physician GroupComment on above:Result Comment: Critical Value called on: 08/02/2025 at 04:17PERFORMED BY:[address] [place], [place] [phone] MEDICAL DIRECTORCELESTE GERMAN M.D.Performed By: #### ABG ####Point of Care testing,Set Respiratory Rate16 NormalAdventhealth Tampa Physician GroupComment on above:Performed By: #### ABG ####Point of Care testing,VBG Draw SiteLeft BrachialBaptist Health Bethesda Hospital East Physician GroupComment on above:Performed By: #### ABG ####Point of Care testing,Ventilator ModeACBaptist Health Bethesda Hospital East Physician GroupComment on above: Performed By: #### ABG ####Point of Care testing,Basic Metabolic Panelon 30-88-2547Jnqmn gap [Moles/Vol]12.0 mmol/LNormal6.0-15.0The [facility] Physician GroupComment on above:Performed By: #### BMP, CBC ####[place] [phone] USACalcium [Mass/Vol]8.6 mg/dLNormal 8.6-10.3The [facility] Physician GroupComment on above:Performed By: #### BMP, CBC ####[address] [address] [place] Chloride [Moles/Vol]100 mmol/EIqcvwb75-614Ecf [facility] Physician GroupComment on above:Performed By: #### BMP, CBC ####[address] [address] USACO2 [Moles/Vol]28.3 mmol/CIesalm72.0-31.0The [facility] Physician GroupComment on above:Performed By: #### BMP, CBC ####[address] [address] [place] Creatinine [Mass/Vol]2.27 mg/dLHigh0.70-1.30The [facility] Physician GroupComment on above:Performed By: #### BMP, CBC ####[address] [address] USACreatinine Clr Calc Pjrgchij63.41NormNicklaus Children's Hospital at St. [facility] Physician GroupComment on above:Result Comment: PERFORMED BY:[address] [place], [place] [phone] MEDICAL DIRECTORCELESTE GERMAN M.D.Performed By: #### BMP, CBC ####[address] [address] USAGFR/1.73 sq M.predicted MDRD (S/P/Bld) [Vol rate/Area]31.037 mL/min/{1.73_m2}NormalThe [facility] Physician [facility] WesleyComment on above:Performed By: #### BMP, CBC ####[address] [address] USAGlucose [Mass/Vol]96 mg/jFHcmcmp00-364[place] Physician [facility] WesleyComment on above: Result Comment: Random Glucose Reference Range is dependent on time and content of last meal. Glucose of more than 200 mg/dL in a nonstressed, ambulatory subject supports the diagnosis of Diabetes Mellitus. ADA recommended reference rangePerformed By: #### BMP, CBC ####[address] [address] USAPotassium [Moles/Vol]4.3 mmol/LNormal3.5-5.1The [facility] Physician GroupComment on above:Performed By: #### BMP, CBC ####[address] [address] USASodium [Moles/Vol]136 mmol/OVylyru449-440Brq [facility] Physician GroupComment on above: Performed By: #### BMP, CBC ####[address] [address] USAUrea nitrogen [Mass/Vol]70 mg/dLHigh7-25The [facility] Physician GroupComment on above:Performed By: #### BMP, CBC ####[place] [id number] [facility] Complete Blood Count Auto Diffon 82-25-1148Ltkbodhnx (Bld) [#/Vol]0.0 10*3/uL Normal0.0-0.2The [facility] Physician GroupComment on above:Result Comment: PERFORMED BY:[address] [place], [place] [phone] MEDICAL DIRECTORCELESTE GERMAN M.D.Performed By: #### BMP, CBC ####[place] [phone] USABasophils/100 WBC (Bld)0.1 %Normal.The [facility] Physician GroupComment on above:Performed By: #### BMP, CBC ####[address] [address] USAEosinophils (Bld) [#/Vol]0.0 10*3/uLNormal 0.0-0.45The [facility] Physician GroupComment on above:Performed By: #### BMP, CBC ####[place] [id number] [facility] Eosinophils/100 WBC (Bld)0.1 %Normal.The [facility] Physician GroupComment on above:Performed By: #### BMP, CBC ####[address] [address] USAErythrocyte distribution width (RBC) [Ratio]15.4 % High12.0-14.8The [facility] Physician GroupComment on above:Performed By: #### BMP, CBC ####[place] [address] USAHematocrit (Bld) [Volume fraction]36.1 %Low38.8-50.0The [facility] Physician GroupComment on above:Performed By: #### BMP, CBC ####[place] [address] USAHemoglobin (Bld) [Mass/Vol]11.7 g/dL Low13.0-17.0The [facility] Physician GroupComment on above:Performed By: #### BMP, CBC ####[place] [address] USALymphocytes (Bld) [#/Vol]0.4 10*3/uLLow1.00-4.8The [facility]ician Group Comment on above:Performed By: #### BMP, CBC ####[place] [address] USALymphocytes/100 WBC (Bld)6.9 %Normal. The [facility] Physician GroupComment on above:Performed By: #### BMP, CBC ####[place] [phone] [facility] CENTERMCH (RBC) [Entitic mass]30.3 elYaouct70.5-35.2The [facility] Physician GroupComment on above:Performed By: #### BMP, CBC ####[place] [address] [facility] CENTERMCV (RBC) [Entitic vol]93.6 zNDatuju55.5-101 The [facility] Physician GroupComment on above:Performed By: #### BMP, CBC ####[place] [address] USAMean Corpuscular HGB Conc32.3 g/dLLow32.5-35.6The [facility] Physician GroupComment on above:Performed By: #### BMP, CBC ####[place] [address] USAMonocytes (Bld) [#/Vol]0.7 10*3/uLNormal0.0-0.8The [facility] Physician GroupComment on above:Performed By: #### BMP, CBC ####[place] [address]270 [place] Monocytes/100 WBC (Bld)11.9 %Normal.The [facility] Physician GroupComment on above:Performed By: #### BMP, CBC ####[place] [address] USANeutrophils (Bld) [#/Vol]4.9 10*3/uLNormal1.8-7.7The [facility] Physician GroupComment on above:Performed By: #### BMP, CBC ####[place] [address] [place] Neutrophils/100 WBC (Bld)81.0 %Normal.The [facility] Physician GroupComment on above:Performed By: #### BMP, CBC ####[place] [address] USANRBC%0.1 /100{WBC}Normal0-0.5The [facility] Physician GroupComment on above:Performed By: #### BMP, CBC ####[place] [address] USAPlatelet mean volume (Bld) [Entitic vol]7.8 fLNormal6.6-10.1The [facility] Physician GroupComment on above: Performed By: #### BMP, CBC ####[place] [address] USAPlatelets (Bld) [#/Vol]188 10*3/wTEoibou781-901Ggj [facility] Physician GroupComment on above:Performed By: #### BMP, CBC ####[place] [address] USARBC (Bld) [#/Vol]3.86 10*6/uLLow3.90-5.60The [facility] Physician GroupComment on above:Performed By: #### BMP, CBC ####[place] [address] USAWBC (Bld) [#/Vol]6.1 10*3/uLNormal4.1-10.5The [facility] Physician GroupComment on above:Performed By: #### BMP, CBC ####[address] [place] [address] [facility]ENTERWhite Blood Count6.1 [CFU]/mLNormal4.1-10.5The [facility] Physician [facility] WesleyComment on above:Performed By: #### BMP, CBC ####[address] [address] USAECH echo transthoracicon 52-74-0160XGK echo transthoracicNormNicklaus [facility]'s [facility] Physician [facility] WesleyXR chest 1V portableon 89-43-6665EK chest 1V portableNoTrumbull Memorial HospitalAnti-Xa UF Heparinon 58-11-6840Cjnp-Xa UF Heparin0.21Low0.30-0.70The [facility]. Hershey Medical CenterComment on above:Result Comment: Use the aPTT protocol when triglycerides are > 800 mg/dL, total bilirubin is > 20 mg/dL and/or patient has received a DOAC, Fondaparinux or LMWH within 72 hours AND baseline anti-Xa level is > 0.7 units/mLPERFORMED BY:[address] [place]JeremiSEC[place], [place] [phone] MEDICAL ELÍAS GERMAN M.D.Performed By: #### UFHEP ####[address] [address] USAAnti-Xa UF Heparin0.20Low0.30-0.70The [facility] Physician [facility] WesleyComment on above:Result Comment: Use the aPTT protocol when triglycerides are > 800 mg/dL, total bilirubin is > 20 mg/dL and/or patient has received a DOAC, Fondaparinux or LMWH within 72 hours AND baseline anti-Xa level is > 0.7 units/mLPERFORMED BY:[address] [place], [place] [phone] MEDICAL ELÍAS GERMAN M.D.Performed By: #### UFHEP ####[address] [address] USAAnti-Xa UF Heparin0.05Low0.30-0.70The [facility] Physician GroupComment on above:Result Comment: Use the aPTT protocol when triglycerides are > 800 mg/dL, total bilirubin is > 20 mg/dL and/or patient has received a DOAC, Fondaparinux or LMWH within 72 hours AND baseline anti-Xa level is > 0.7 units/mLPERFORMED BY:[facility] [place], [place] [phone] MEDICAL DIRECTORCELESTE GERMAN M.D.Performed By: #### UFHEP ####[facility] [place] [address] USAArterial Blood Gason 48-14-6492XAA Base Excess-6.6 mmol/LLow-3.0-3.0The [facility] Physician GroupComment on above:Performed By: #### ABG ####Point of Care testing,ABG Frac Inspired O245 %NormalThe [facility] Physician GroupComment on above:Performed By: #### ABG ####Point of Care testing,ABG Oxygen Content7.6 mmol/LNormal6.6-9.7The [facility] Physician GroupComment on above:Performed By: #### ABG ####Point of Care testing,ABG Oxygen Gqgvoynpub95.6 %Jsjuxt04.0-100.0 The [facility] Physician GroupComment on above:Performed By: #### ABG ####Point of Care testing,ABG ASU942.5 mm[Hg]Vsxqmc22.0-45.0The [facility] Physician [facility] Comment on above:Performed By: #### ABG ####Point of Care testing,ABG PEEP5 NormalThe [facility] Physician GroupComment on above:Performed By: #### ABG ####Point of Care testing,ABG PH7.30Low7.35-7.45The [facility] Physician [facility] Comment on above:Performed By: #### ABG ####Point of Care testing,ABG PO288.3 mm[Hg]Oeviwa92.0-100.0The [facility] Physician GroupComment on above:Performed By: #### ABG ####Point of Care testing,ABG TV500 mLNormalThe [facility] Physician GroupComment on above:Performed By: #### ABG ####Point of Care testing,CO2 [Moles/Vol]20.6 mmol/LLow23.0-27.0The [facility] Physician GroupComment on above: Performed By: #### ABG ####Point of Care testing,HCO3 (Bld) [Moles/Vol]19.4 mmol/LLow23.0-29.0The [facility] Physician GroupComment on above:Performed By: #### ABG ####Point of Care testing,Respiratory CriticalBaptist Health Bethesda Hospital East Physician GroupComment on above:Result Comment: Critical Value called on: 08/01/2025 at 05:05PERFORMED BY:[address] [place], [place] [phone] MEDICAL ELÍAS GERMAN M.D.Performed By: #### ABG ####Point of Care testing,Set Respiratory Rate16 NormalThe [facility] Physician GroupComment on above:Performed By: #### ABG ####Point of Care testing,VBG Draw SiteRight BrachialNoDosher Memorial Hospital Physician GroupComment on above:Performed By: #### ABG ####Point of Care testing,Ventilator ModeACBaptist Health Bethesda Hospital East Physician GroupComment on above: Performed By: #### ABG ####Point of Care testing,B-Type Natriuretic Peptideon 29-02-8482Znhvzsvqrex peptide B (Bld) [Mass/Vol]440.0 pg/mLHigh5-100The [facility] Physician GroupComment on above:Result Comment: PERFORMED BY:[address] [place], [place] [phone] MEDICAL ELÍAS GERMAN M.D.Performed By: #### BNP, [id number], LIPID, PT, BMP, LACTIC, CBC, PTT ####[address] [place] [address] USABasic Metabolic Panelon 10-65-0348Xwdab gap [Moles/Vol]11.8 mmol/LNormal6.0-15.0The [facility] Physician GroupComment on above:Order Comment: FASTING YPerformed By: #### BNP, [id number], LIPID, PT, BMP, LACTIC, CBC, PTT ####[place] [address] [place] [address] USACalcium [Mass/Vol]8.0 mg/dLLow8.6-10.3The [facility] Physician Group Comment on above:Order Comment: FASTING YPerformed By: #### BNP, [id number], LIPID, PT, BMP, LACTIC, CBC, PTT ####[address] [address] USAChloride [Moles/Vol]99 mmol/JDvivzv04-714Zwz [facility] Physician GroupComment on above:Order Comment: FASTING YPerformed By: #### BNP, [id number], LIPID, PT, BMP, LACTIC, CBC, PTT ####[address] [address] USACO2 [Moles/Vol]27.6 mmol/L Jntpqx41.0-31.0The [facility] Physician GroupComment on above:Order Comment: FASTING YPerformed By: #### BNP, [id number], LIPID, PT, BMP, LACTIC, CBC, PTT ####[address] [address] [place] Creatinine [Mass/Vol]2.82 mg/dLHigh0.70-1.30The [facility] Physician GroupComment on above:Order Comment: FASTING YPerformed By: #### BNP, [id number], LIPID, PT, BMP, LACTIC, CBC, PTT ####[address] [address] USACreatinine Clr Calc Olzjxgyc75.70NormalThe [facility] Physician GroupComment on above:Order Comment: FASTING YPerformed By: #### BNP, [id number], LIPID, PT, BMP, LACTIC, CBC, PTT ####[facility] [id number] [place] [address] USAGFR/1.73 sq M.predicted MDRD (S/P/Bld) [Vol rate/Area]23.923 mL/min/{1.73_m2}NormalThe [facility] Physician GroupComment on above:Order Comment: FASTING YPerformed By: #### BNP, [id number], LIPID, PT, BMP, LACTIC, CBC, PTT ####[address] [address] USAGlucose [Mass/Vol]95 mg/cGFrydzk26-393Uho [facility] Physician GroupComment on above:Order Comment: FASTING YResult Comment: Random Glucose Reference Range is dependent on time and content of last meal. Glucose of more than 200 mg/dL in a nonstressed, ambulatory subject supports the diagnosis of Diabetes Mellitus. ADA recommended reference rangePerformed By: #### BNP, [id number], LIPID, PT, BMP, LACTIC, CBC, PTT ####[address] [address] USAPotassium [Moles/Vol]4.4 mmol/LNormal3.5-5.1The [facility] Physician GroupComment on above:Order Comment: FASTING YPerformed By: #### BNP, [id number], LIPID, PT, BMP, LACTIC, CBC, PTT ####[place] [phone] USASodium [Moles/Vol]134 mmol/GUoe584-747Hia [facility] Physician GroupComment on above: Order Comment: FASTING YPerformed By: #### BNP, [id number], LIPID, PT, BMP, LACTIC, CBC, PTT ####[address] [address] USAUrea nitrogen [Mass/Vol]77 mg/dLHigh7-25The [facility] Physician Group Comment on above:Order Comment: FASTING YPerformed By: #### BNP, [id number], LIPID, PT, BMP, LACTIC, CBC, PTT ####[address] [address] USAComplete Blood Count Auto Diffon 83-65-0092Pztjmwgzd (Bld) [#/Vol]0.0 10*3/uLNormal0.0-0.2The [facility] Physician GroupComment on above:Result Comment: PERFORMED BY:[address] [place], [place] [phone] MEDICAL DIRECTORCELESTE GERMAN M.D.Performed By: #### BNP, [id number], LIPID, PT, BMP, LACTIC, CBC, PTT ####[address] Basophils/100 WBC (Bld)0.1 %Normal.The [facility] Physician GroupComment on above:Performed By: #### BNP, [id number], LIPID, PT, BMP, LACTIC, CBC, PTT ####[address] Eosinophils (Bld) [#/Vol]0.0 10*3/uLNormal0.0-0.45The [facility] Physician Group Comment on above:Performed By: #### BNP, [id number], LIPID, PT, BMP, LACTIC, CBC, PTT ####[address] Eosinophils/100 WBC (Bld)0.0 %Normal.The [facility] Physician GroupComment on above:Performed By: #### BNP, [id number], LIPID, PT, BMP, LACTIC, CBC, PTT ####[address] Erythrocyte distribution width (RBC) [Ratio]15.8 %High12.0-14.8The [facility] Physician GroupComment on above:Performed By: #### BNP, [id number], LIPID, PT, BMP, LACTIC, CBC, PTT ####[place] [address] USAHematocrit (Bld) [Volume fraction]37.9 %Low38.8-50.0 The [facility] Physician GroupComment on above:Performed By: #### BNP, [id number], LIPID, PT, BMP, LACTIC, CBC, PTT ####[place] [address] USAHemoglobin (Bld) [Mass/Vol]12.5 g/dLLow13.0-17.0The [facility] Physician GroupComment on above:Performed By: #### BNP, [id number], LIPID, PT, BMP, LACTIC, CBC, PTT ####[place] [address] USALymphocytes (Bld) [#/Vol]0.4 10*3/uLLow1.00-4.8The [facility] Physician GroupComment on above:Performed By: #### BNP, [id number], LIPID, PT, BMP, LACTIC, CBC, PTT ####[place] [address] USALymphocytes/100 WBC (Bld)9.8 %Normal.The [facility] Physician GroupComment on above:Performed By: #### BNP, [id number], LIPID, PT, BMP, LACTIC, CBC, PTT ####[address] (RBC) [Entitic mass]30.7 joEeteeg70.5-35.2The [facility] Physician GroupComment on above:Performed By: #### BNP, [id number], LIPID, PT, BMP, LACTIC, CBC, PTT ####[address] (RBC) [Entitic vol]93.1 eQQvyqzp37.5-101The [facility] Physician GroupComment on above:Performed By: #### BNP, [id number], LIPID, PT, BMP, LACTIC, CBC, PTT ####[place] [address] USAMean Corpuscular HGB Conc32.9 g/tRQjmlhu24.5-35.6The [facility] Physician GroupComment on above:Performed By: #### BNP, [id number], LIPID, PT, BMP, LACTIC, CBC, PTT ####[place] [address] USAMonocytes (Bld) [#/Vol]0.3 10*3/uLNormal0.0-0.8The [facility] Physician GroupComment on above:Performed By: #### BNP, [id number], LIPID, PT, BMP, LACTIC, CBC, PTT ####[place] [phone] USAMonocytes/100 WBC (Bld)7.7 %Normal.The [facility] Physician GroupComment on above:Performed By: #### BNP, [id number], LIPID, PT, BMP, LACTIC, CBC, PTT ####[place] [address] USANeutrophils (Bld) [#/Vol]3.6 10*3/uLNormal1.8-7.7The [facility] Physician GroupComment on above:Performed By: #### BNP, [id number], LIPID, PT, BMP, LACTIC, CBC, PTT ####[place] [address] USANeutrophils/100 WBC (Bld)82.4 %Normal.The [facility] Physician GroupComment on above:Performed By: #### BNP, [id number], LIPID, PT, BMP, LACTIC, CBC, PTT ####[place] [address] USANRBC%0.0 /100{WBC}Normal0-0.5The [facility] Physician GroupComment on above:Performed By: #### BNP, [id number], LIPID, PT, BMP, LACTIC, CBC, PTT ####[place] [address] USAPlatelet mean volume (Bld) [Entitic vol]7.8 fLNormal6.6-10.1The [facility] Physician GroupComment on above:Performed By: #### BNP, [id number], LIPID, PT, BMP, LACTIC, CBC, PTT ####[place] [address] USAPlatelets (Bld) [#/Vol]194 10*3/xCSyczzf091-837Qwp [facility] Physician GroupComment on above:Performed By: #### BNP, [id number], LIPID, PT, BMP, LACTIC, CBC, PTT ####[place] [phone] USARBC (Bld) [#/Vol]4.07 10*6/uLNormal3.90-5.60The [facility] Physician GroupComment on above:Performed By: #### BNP, [id number], LIPID, PT, BMP, LACTIC, CBC, PTT ####[address] [address] USAWBC (Bld) [#/Vol]4.4 10*3/uLNormal4.1-10.5The [facility] Physician GroupComment on above:Performed By: #### BNP, [id number], LIPID, PT, BMP, LACTIC, CBC, PTT ####[place] [id number] USAWhite Blood Count4.4 [CFU]/mLNormal4.1-10.5The [facility] Physician GroupComment on above:Performed By: #### BNP, [id number], LIPID, PT, BMP, LACTIC, CBC, PTT ####[address] [address] USACreatine Kinaseon 96-59-6565TH [Catalytic activity/Vol]61 U/QXjqupl29-660Mds [facility] Physician GroupComment on above: Performed By: #### HS TROP, CK ####[address] [address] USACK [Catalytic activity/Vol]80 U/UTlgnca97-617Rdk [facility] Physician GroupComment on above:Performed By: #### CK, HS TROP ####[address] [address] USACK [Catalytic activity/Vol]103 U/LOiauda13-206Yic [facility] Physician GroupComment on above:Performed By: #### HS TROP, CK ####[address] [address] USACK [Catalytic activity/Vol]121 U/KJyxzpp41-682 The [facility] Physician GroupComment on above:Performed By: #### CK, HS TROP ####[place] [id number] USAECG 12 lead ECGon 69-32-9648NVH 12 lead ECGBaptist Health Bethes[facility] East Physician [facility] WesleyGlucose Poct Glucometerson 99-46-8608Ehcrski0Jqi3: Cleaned MeterNoDosher Memorial Hospital Physician [facility] WesleyComment on above:Result Comment: PERFORMED BY:[address] [place], [place] [phone] MEDICAL DIRECTORCELESTE GERMAN M.D.Performed By: #### GLULS ####Point of Care testing, Glucose [Mass/Vol]87 mg/dLNoDosher Memorial Hospital Physician GroupComment on above: Result Comment: Random Glucose Reference Range is dependent on time and content of last meal. Glucose of more than 200 mg/dL in a nonstressed, ambulatory subject supports the diagnosis of Diabetes Mellitus.Performed By: #### GLULS ####Point of Care testing,Lactic Acidon 81-35-2245Eaefhhq [Moles/Vol]1.6 mmol/L Normal0.5-1.9The [facility] Physician GroupComment on above:Result Comment: Lactic Acid reference range has been updated to 0.5 ? 1.9 mmol/L and the critical range of 2.0 or greater.PERFORMED BY:[address] [place], [place] [phone] MEDICAL ELÍAS GERMAN M.D.Performed By: #### BNP, [id number], LIPID, PT, BMP, LACTIC, CBC, PTT ####[facility] [address] [place] [address] USALactic Acid Reflexon 35-03-7306Qnespb Acid Reflex2.3 mmol/LOff scale high0.5-1.9The [facility] Physician GroupComment on above:Result Comment: Critical Result : Called to and read back by: IDANIA OCHOA at: 08/01/2025 00:53:29 by:[id number] Lactic Acid reference range has been updated to 0.5 ? 1.9 mmol/L and the critical range of 2.0or greater.PERFORMED BY:[address] [place], [place] [phone] MEDICAL ELÍAS GERMAN M.D.Performed By: #### LACTIC RFX ####[address] [address]GTILnufl Panelon 10-30-7373Jtyljrqeuhl [Mass/Vol]111 mg/sOCqz601-945Ikt [facility] Physician Group Comment on above:Order Comment: FASTING YResult Comment: Chol less than 200 mg/dl low risk Chol 201-239 mg/dl borderline risk Chol 240 mg/dland greater high riskPerformed By: #### BNP, [id number], LIPID, PT, BMP, LACTIC, CBC, PTT ####[place] [phone] [facility] Cholesterol in HDL [Mass/Vol]38 mg/rIPfhaby31-55Scr [facility] Physician [facility] Comment on above:Order Comment: FASTING YResult Comment: HDL CHOL ATP-III CLASSIFICATION Cardiovascular Risk HDL > or equal to 60 mg/dL LOW HDL < 40 mg/dL HIGHPerformed By: #### BNP, [id number], LIPID, PT, BMP, LACTIC, CBC, PTT ####[address] [address] [facility] Cholesterol.total/Cholesterol in HDL [Mass ratio]2.9 {ratio}Normal<5.0The [facility] Physician GroupComment on above:Order Comment: FASTING YPerformed By: #### BNP, [id number], LIPID, PT, BMP, LACTIC, CBC, PTT ####[address] [address] USALDL Cholesterol,Fzjdxdrxze66 mg/dLNormal0-100The [facility] Physician GroupComment on above:Order Comment: FASTING YResult Comment: LDL ATP III CLASSIFICATION LDL less than 100 mg/dL Optimal LDL 100-129 mg/dL Near or above optimal LDL 130-159 mg/dL Borderline high LDL 160-189 mg/dL High LDL greater than 189 mg/dL Very highPerformed By: #### BNP, [id number], LIPID, PT, BMP, LACTIC, CBC, PTT ####[address] [address] USATriglyceride w/Mbgeaz938 mg/dL High0-149The [facility] Physician GroupComment on above:Order Comment: FASTING Y Result Comment: TRIG ATP III CLASSIFICATION TRIG less than 150 mg/dL Normal TRIG 150-199 mg/dL Borderline high TRIG 200-500 mg/dL High TRIG greater than 500 mg/dL Very high Standard traceable to the Center for Disease Conrtrol and Prevention (CDC) test method.Performed By: #### BNP, [id number], LIPID, PT, BMP, LACTIC, CBC, PTT ####[place] [place] [address] USAVLDL FCMQIIBRDCX48 mg/dLNormNicklaus Children's [facility] St. [facility] Physician GroupComment on above:Order Comment: FASTING YPerformed By: #### BNP, [id number], LIPID, PT, BMP, LACTIC, CBC, PTT ####[place] [place] [address] [facility] CENTERPartial Thromboplastin Timeon 46-84-4520kIUC Coag (Bld) [Time]34.1 s Gosfob61.1-36.5The [facility] Physician GroupComment on above:Result Comment: A hematocrit value greater than 55% may lead to inaccurate results in coagulation testing. Patients having hematocrit values >55% require a special collection tube for coagulation studies. Please contact the laboratory at [phone] for redraw instructions.PERFORMED BY:[place] [address] [address]LLYSc[place]lettJerem[place], [place] [phone] MEDICAL ELÍAS GERMAN M.D.Performed By: #### BNP, [id number], LIPID, PT, BMP, LACTIC, CBC, PTT ####[place] [address] [place] [address] [facility] Prothrombin Time INRon 56-23-8718UEM Coag (PPP) [Relative time]1.0 {INR}Normal The [facility] Physician GroupComment on above:Result Comment: INR [...] 3 - 4.5 Performed By: #### BNP, [id number], LIPID, PT, BMP, LACTIC, CBC, PTT ####[facility] [place] [address] USAPT Coag (PPP) [Time]11.5 sNormal9.0-12.9The [facility] Physician GroupComment on above: Result Comment: A hematocrit value greater than 55% may lead to inaccurate results in coagulation testing. Patients having hematocrit values >55% require a special collection tube for coagulation studies. Please contact the laboratory at [phone] for redraw instructions.Performed By: #### BNP, [id number], LIPID, PT, BMP, LACTIC, CBC, PTT ####[facility] [place] [address] USAThyroid Antibodies TPO+Tg Abon 08-01-2025 Antithyroglobulin Ab404.1Kzthjn4.0-0.9The [facility] Physician [facility] WesleyComment on above:Result Comment: Thyroglobulin Antibody measured by Edgar Ubaldo Methodology It should be noted that the presence of thyroglobulin antibodies may not be pathogenic nor diagnostic, especially at very low levels. The assay ground defence officer has found that four percent of individuals without evidence of t hyroid disease or autoimmunity will have positive TgAb levels up to 4 IU/mL. Performed at: [facility] [address] [id number] [place]: Sidney Osman PhD, Phone: [phone] BY:[address] [place]LLYScarlettJeremi[place], [place] [phone] MEDICAL DIRECTORCELESTE GERMAN M.D.Performed By: #### THY AB ####[facility] ,Thyroid Peroxidase Kdqlixlgok69Litzcq0-32Lfg [facility] Physician GroupComment on above:Performed By: #### THY AB ####[facility] , Treponema pallidum Ab(FTA-ABS)on 49-22-3233Rofjulgmp pallidum Ab(FTA-ABS) Non-ReactiveNormalNon ReactiveThe [facility] Physician GroupComment on above: Result Comment: Performed at: - [facility] [address], [place], [place] [id number] [place]: Sidney Osman PhD, Phone: [phone] BY:[address] [address] [place], [place] [phone] MEDICAL ELÍAS GERMAN M.D.Performed By: #### VITB1, FTA ####[facility] ,Troponin I High Sensitivityon 02-05-4242Nrzqnqde I High Dtkixecpqsd6457Gdv scale [facility] Physician GroupComment on above:Result Comment: Critical Result : Called to and read back by: MANAN CHEEK at: 08/01/2025 21:08:16 by:MALIKA The Troponin units of report have been changed to meet the Chest Pain Accreditation req uirement, element EC5.M1l2. Troponin units are changed from pg/ml to ng/L. Also, the decimal is removed and results are in whole numbers.PERFORMED BY:[address]IGOR ABREUOAKLAND, [place] [phone] MEDICAL ELÍAS GERMAN M.D.Performed By: #### HS TROP, CK ####[address] [place] [address] [facility] Troponin I High Xjkhinyknbk5405Bpk scale [facility] Comment on above:Result Comment: Critical Result : Called to and read back by: BEV SAUCEDA at: 08/01/2025 10:52:10 by:[id number] The Troponin units of report have been changed to meet the Chest Pain Accreditation requirement, element EC5.M1l2. Troponin units are changed from pg/ml to ng/L. Also, the decimal is removed and results are in whole numbers.PERFORMED BY:[address] [place], [place] [phone] MEDICAL ELÍAS GERMAN M.D.Performed By: #### CK, HS TROP ####[address] [place] [address] USATroponin I High Wurmsaostqw0217Egf scale high0-[address] [place] [address] Physician GroupComment on above: Result Comment: Critical Result : Called to and read back by: IDANIA OCHOA at: 08/01/2025 04:33:48 by:[id number] The Troponin units of report have been changed to meet the Chest Pain Accreditation requirement, element EC5.M1l2. Troponin units are changed from pg/ml to ng/L. Also, the decimal is removed andresults are in whole numbers.PERFORMED BY:[address]TAMIASHAR,[place] [phone] MEDICAL DIRECTORCELESTE GERMAN M.D.Performed By: #### HS TROP, CK ####[address] [address] USATroponin I High Ohwyujtbmch0644Jrs scale [facility]0-[facility] Physician [facility] WesleyComment on above:Result Comment: Critical Result : Called to and read back by: IDANIA OCHOA at: 08/01/2025 00:53:08 by:[id number] The Troponin units of report have been changed to meet the Chest Pain Accreditation requirement, element EC5.M1l2. Troponin units are changed from pg/ml to ng/L. Also, the decimal is removed andresults are in whole numbers.PERFORMED BY:[address] [place] [phone] MEDICAL DIRECTORCELESTE GERMAN M.D.Performed By: #### CK, HS TROP ####[address] [address] USAUS renal BIon 79-79-0594YL renal BINormalThe [facility] Physician Group Vit. B12/Folate Profileon 71-68-7024Stqwcmuyn (Vitamin B12) [Mass/Vol]435 pg/mL Hbspwa326-632Wib [facility] Hershey Medical CenterComment on above:Order Comment: FASTING YPerformed By: #### BNP, VIFL40TZF, LIPID, PT, BMP, LACTIC, CBC, PTT ####[address] [address] USAFolate 11.6 ng/mLNormal>5.9The [facility] Physician GroupComment on above:Order Comment: FASTING YResult Comment: Folate reference range: >5.9 ng/ml The WHO technical consultation on folate and vitamin b12 deficiencies has determined that folate concentrations less than 4 ng/ml are considered deficient.PERFORMED BY:[address] [address] [address] [place], [place] [phone] MEDICAL ELÍAS GERMAN M.D.Performed By: #### BNP, OTTU40IGP, LIPID, PT, BMP, LACTIC, CBC, PTT ####[address] [address] USAVitamin B1 (Thiamine) Bloodon 22-60-1670Odhmbub B1 (Thiamine) Blood84.3Pjewet69.5-200.0The [facility] Physician GroupComment on above:Result Comment: This test was developed and its performance characteristics determined by [facility]. It has not been cleared or approved by the Food and Drug Administration. Performed at: [facility] [address] [id number] [place]: Gareth Alford MD, Phone: [phone] BY:[address] [address] [address] LI[place]AGASHARW[place], [place] [phone] MEDICAL ELÍAS GERMAN M.D.Performed By: #### VITB1, FTA ####[facility] ,XR chest 1V portableon 08-01-2025 XR chest 1V portableNormNicklaus [facility] Physician IrorfO4J with Estimated Average Gluon 20-15-3031Hjtzmyp [Mass/Vol]117 mg/dLNormNicklaus [facility] Physician [facility] WesleyComment on above:Result Comment: PERFORMED BY:[address] [address] [address] LIZARRAGASHARWINTERVIL[place], [place] [phone] MEDICAL ELÍAS GERMAN M.D.Performed By: #### A1C WTH eA ####[address] [place], [place] [address]NDSGtP0c (Bld) [Mass fraction]5.7 %High4.3-5.6The [facility] Physician GroupComment on above:Result Comment: Increased risk for diabetes: 5.7 - 6.4 diabetes: >6.4 glycemic control for adults with diabetes: <7.0Performed By: #### A1C WTH eA ####[address] [address]MTLJsau-Kc UF Heparinon 65-95-7255Wptn-Xa UF Heparin<0.04Low0.30-0.70The [facility] Physician [facility] Comment on above:Result Comment: Use the aPTT protocol when triglycerides are > 800 mg/dL, total bilirubin is > 20 mg/dL and/or patient has received a DOAC, Fondaparinux or LMWH within 72 hours AND baseline anti-Xa level is > 0.7 units/mLPERFORMED BY:[address] [place]LLYScarlettJeremi[place], [place] [phone] MEDICAL DIRECTORCELESTE GERMAN M.D.Performed By: #### UFHEP ####[address] [address] USAAnti-Xa UF Heparin0.05Low0.30-0.70The [facility] Physician [facility] WesleyComment on above:Result Comment: Use the aPTT protocol when triglycerides are > 800 mg/dL, total bilirubin is > 20 mg/dL and/or patient has received a DOAC, Fondaparinux or LMWH within 72 hours AND baseline anti-Xa level is > 0.7 units/mLPERFORMED BY:[address] [place], [place] [phone] MEDICAL ELÍAS GERMAN M.D.Performed By: #### PTT, SCAN CBC, UFHEP, PT, CUBLD, BNP, MG, LACTIC, BMP, HEPATIC ####[address] [address] [facility] Arterial Blood Gason 75-43-4115XEK Base Excess-2.7 mmol/LNormal-3.0-3.0The [facility] Physician [facility] WesleyComment on above:Performed By: #### ABG ####Point of Care testing,ABG Frac Inspired O250 %NormalThe [facility] Physician GroupComment on above:Performed By: #### ABG ####Point of Care testing,ABG Oxygen Content8.2 mmol/LNormal6.6-9.7The [facility] Physician GroupComment on above:Performed By: #### ABG ####Point of Care testing,ABG Oxygen Wvnvxhjpnn54.9 %Low95.0-100.0The [facility] Physician GroupComment on above:Performed By: #### ABG ####Point of Care testing,ABG PPX722.3 mm[Hg]Off scale high35.0-45.0The [facility] Physician GroupComment on above:Performed By: #### ABG ####Point of Care testing,ABG PEEP5 NormalThe [facility] Physician GroupComment on above:Performed By: #### ABG ####Point of Care testing,ABG PH7.28Low7.35-7.45The [facility] Physician Group Comment on above:Performed By: #### ABG ####Point of Care testing,ABG PO272.1 mm[Hg]Low80.0-100.0The [facility] Physician GroupComment on above:Performed By: #### ABG ####Point of Care testing,ABG TV500 mLNormalThe [facility] Physician GroupComment on above:Performed By: #### ABG ####Point of Care testing,CO2 [Moles/Vol]26.5 mmol/FTovedp37.0-27.0The [facility] Physician GroupComment on above:Performed By: #### ABG ####Point of Care testing,HCO3 (Bld) [Moles/Vol] 24.8 mmol/BDqmmnw18.0-29.0The [facility] Physician GroupComment on above: Performed By: #### ABG ####Point of Care testing,Respiratory CriticalNormalThe [facility] Physician GroupComment on above:Result Comment: Critical Value called on: 07/31/2025 at 21:22PERFORMED BY:[address] [place], [place] [phone] MEDICAL DIRECTORCELESTE GERMAN M.D.Performed By: #### ABG ####Point of Care testing,Set Respiratory Rate16 NormalThe [facility] Physician GroupComment on above:Performed By: #### ABG ####Point of Care testing,VBG Draw SiteRight RadialBaptist Health Bethesda Hospital East Physician GroupComment on above:Performed By: #### ABG ####Point of Care testing, Ventilator ModeACBaptist Health Bethesda Hospital East Physician GroupComment on above:Performed By: #### ABG ####Point of Care testing,B-Type Natriuretic Peptideon 07-31-2025 Natriuretic peptide B (Bld) [Mass/Vol]695.0 pg/mLHigh5-100The [facility] Physician GroupComment on above:Result Comment: PERFORMED BY:[address] [place], [place] [phone] MEDICAL ELÍAS GERMAN M.D.Performed By: #### PTT, SCAN CBC, UFHEP, PT, CUBLD, BNP, MG, LACTIC, BMP, HEPATIC ####[address] [address] USABasic Metabolic Panelon 60-54-4994Iwoni gap [Moles/Vol]12.2 mmol/LNormal6.0-15.0The [facility] Physician GroupComment on above:Performed By: #### PTT, SCAN CBC, UFHEP, PT, CUBLD, BNP, MG, LACTIC, BMP, HEPATIC ####[address] [address] USACalcium [Mass/Vol]8.4 mg/dLLow8.6-10.3The [facility] Physician GroupComment on above:Performed By: #### PTT, SCAN CBC, UFHEP, PT, CUBLD, BNP, MG, LACTIC, BMP, HEPATIC ####[place] [address] USAChloride [Moles/Vol]93 mmol/PKrh95-805Fns [facility] Physician GroupComment on above:Performed By: #### PTT, SCAN CBC, UFHEP, PT, CUBLD, BNP, MG, LACTIC, BMP, HEPATIC ####[address] [place] [address] USACO2 [Moles/Vol]31.2 mmol/LHigh21.0-31.0The [facility] Physician GroupComment on above:Performed By: #### PTT, SCAN CBC, UFHEP, PT, CUBLD, BNP, MG, LACTIC, BMP, HEPATIC ####[place] [address] USACreatinine [Mass/Vol]3.19 mg/dLHigh0.70-1.30The [facility] Physician GroupComment on above:Performed By: #### PTT, SCAN CBC, UFHEP, PT, CUBLD, BNP, MG, LACTIC, BMP, HEPATIC ####[place] [address] USACreatinine Clr Calc Fftdaset95.17NormalThe [facility] Physician GroupComment on above:Performed By: #### PTT, SCAN CBC, UFHEP, PT, CUBLD, BNP, MG, LACTIC, BMP, HEPATIC ####[place] [address] USAGFR/1.73 sq M.predicted MDRD (S/P/Bld) [Vol rate/Area]20.633 mL/min/{1.73_m2}NormalThe [facility] Physician [facility] WesleyComment on above:Performed By: #### PTT, SCAN CBC, UFHEP, PT, CUBLD, BNP, MG, LACTIC, BMP, HEPATIC ####[place] [address] USAGlucose [Mass/Vol]107 mg/nQVufe36-024Ihw [facility] Physician GroupComment on above:Result Comment: Random Glucose Reference Range is dependent on time and content of last meal. Glucose of more than 200 mg/dL in a nonstressed, ambulatory subject supports the diagnosis of Diabetes Mellitus. ADA recommended reference rangePerformed By: #### PTT, SCAN CBC, UFHEP, PT, CUBLD, BNP, MG, LACTIC, BMP, HEPATIC ####[place] [address] USAPotassium [Moles/Vol]4.4 mmol/LNormal3.5-5.1The [facility] Physician GroupComment on above:Performed By: #### PTT, SCAN CBC, UFHEP, PT, CUBLD, BNP, MG, LACTIC, BMP, HEPATIC ####[address] [address] USASodium [Moles/Vol]132 mmol/FHfo267-905 The [facility] Physician GroupComment on above:Performed By: #### PTT, SCAN CBC, UFHEP, PT, CUBLD, BNP, MG, LACTIC, BMP, HEPATIC ####[address] [address] USAUrea nitrogen [Mass/Vol]79 mg/dLHigh 7-e [facility] Physician GroupComment on above:Performed By: #### PTT, SCAN CBC, UFHEP, PT, CUBLD, BNP, MG, LACTIC, BMP, HEPATIC ####[address] [address] USABlood Cultureon 07-31-2025 Bacteria identified Cx Nom (Bld)NO GROWTH 5 DAYS PERFORMED BY: [place] [address] PATHOLOGIST WORK ORDER CLERK CELESTE GERMAN M.D.NormalThe [facility] Physician GroupComment on above: Performed By: #### PTT, SCAN CBC, UFHEP, PT, CUBLD, BNP, MG, LACTIC, BMP, HEPATIC ####[address] [address] USABacteria identified Cx Nom (Bld)NO GROWTH 5 DAYS PERFORMED BY: [place] [address] PATHOLOGIST WORK ORDER CLERK CELESTE GERMAN M.D.NormalAdventhealth Tampa Physician GroupComment on above: Performed By: #### PTT, SCAN CBC, UFHEP, PT, CUBLD, BNP, MG, LACTIC, BMP, HEPATIC ####[place] [address] USACreatine Kinaseon 71-60-2208TI [Catalytic activity/Vol]151 U/YEabwqv96-670Goz [facility] Physician GroupComment on above:Performed By: #### CK, HS TROP ####[address] [address] [place] Dipstick and Microscopicon 68-75-0875Kihgavrhdf (U)CloudyCritically abnormal ClearThe [facility] Physician GroupComment on above:Order Comment: Name Collection Type:: Ramirez CatheterPerformed By: #### ADDONUAPLUS ####[address] [address] USABacteria,UrineRare NormalNone SeenThe [facility] Physician GroupComment on above:Order Comment: Name Collection Type:: Ramirez CatheterPerformed By: #### ADDONUAPLUS ####[address] [address] USABilirubin,Urine NegativeNormalNegativeThe [facility] Physician GroupComment on above:Order Comment: Name Collection Type:: Ramirez CatheterPerformed By: #### ADDONUAPLUS ####[address] [address] USAColor (U)YellowNormalYellowThe [facility] Physician GroupComment on above:Order Comment: Name Collection Type:: Ramirez CatheterPerformed By: #### ADDONUAPLUS ####[address] [address] USAGlucose Ql (U)NormalNormalNormalThe [facility] Physician GroupComment on above:Order Comment: Name Collection Type:: Ramirez CatheterPerformed By: #### ADDONUAPLUS ####[address] [address] [place] Granular Casts, Urine5-9NormalNone SeenThe [facility] Physician GroupComment on above:Order Comment: Name Collection Type:: Ramirez CatheterPerformed By: #### ADDONUAPLUS ####[address] [address] USAHyaline Casts,Xtagp4-69Ynbwmp3-1Dkx [facility] Physician GroupComment on above:Order Comment: Name Collection Type:: Ramirez CatheterPerformed By: #### ADDONUAPLUS ####[address] [place] [address] USAKetones Ql (U)NegativeNormalNegativeThe [facility] Physician Group Comment on above:Order Comment: Name Collection Type:: Ramirez CatheterPerformed By: #### ADDONUAPLUS ####[address] [address] USALeukocyte esterase Test strip Ql (U)NegativeNormal NegativeThe [facility] Physician GroupComment on above:Order Comment: Name Collection Type:: Ramirez CatheterPerformed By: #### ADDONUAPLUS ####[address] [address] USAMucus,UrineRareNormal The [facility] Physician GroupComment on above:Order Comment: Name Collection Type:: Ramirez CatheterResult Comment: PERFORMED BY:[address] [address] [address] [place]UO[place], [place] [phone] MEDICAL ELÍAS GERMAN M.D.Performed By: #### ADDONUAPLUS ####[address] [address] USANitrite,UrineNegative NormalNegativeThe [facility] Physician GroupComment on above:Order Comment: Name Collection Type:: Ramirez CatheterPerformed By: #### ADDONUAPLUS ####[address] [address] USAOccult Blood,Urine2+ NormalNegativeThe [facility] Physician GroupComment on above:Order Comment: Name Collection Type:: Ramirez CatheterResult Comment: PERFORMED BY:[address] [address] [address] [place], [place] [phone] MEDICAL ELÍAS GERMAN M.D.Performed By: #### ADDONUAPLUS ####[address] [address] USApH (U)5.5 [pH]Normal 5.0-9.0The [facility] Physician GroupComment on above:Order Comment: Name Collection Type:: Ramirez CatheterPerformed By: #### ADDONUAPLUS ####[address] [address] USAProtein (U) [Mass/Vol]50 mg/dLNormalNegativeThe [facility] Physician GroupComment on above: Order Comment: Name Collection Type:: Ramirez CatheterPerformed By: #### ADDONUAPLUS ####[address] [address] USARBC,Pbexs60-81Nnupev1-5Olb [facility] Physician GroupComment on above: Order Comment: Name Collection Type:: Ramirez CatheterPerformed By: #### ADDONUAPLUS ####[address] [address] USASpecificy [place],Urine1.790Bpdsrz4.001-1.030The [facility] Physician GroupComment on above:Order Comment: Name Collection Type:: Ramirez Catheter Performed By: #### ADDONUAPLUS ####[address] [address] USASquamous Epithelial Cell,Vufch3-9Unfwej5-9Mqa [facility] Physician GroupComment on above:Order Comment: Name Collection Type:: Ramirez CatheterPerformed By: #### ADDONUAPLUS ####[address] [address] USAUrobilinogen,UrineNormalNormalNormal [facility] Physician GroupComment on above:Order Comment: Name Collection Type:: Ramirez CatheterPerformed By: #### ADDONUAPLUS ####[address] [address] USAWBC,Hseke4-7Nshqav0-9Dxz [facility] Physician GroupComment on above:Order Comment: Name Collection Type:: Ramirez CatheterPerformed By: #### ADDONUAPLUS ####[address] [address] USADrug Screen,Urineon 07-31-2025 Amphetamine Screen,UrinePositiveNormalNegativeThe [facility] Physician Group Comment on above:Performed By: #### URDS ####[address] [address] USABarbiturate Screen,UrineNegativeNormalNegative The [facility] Physician GroupComment on above:Performed By: #### URDS ####[address] [address] [place] Benzodiazepines Screen,UrinePositiveNormalNegativeThe [facility] Physician Group Comment on above:Performed By: #### URDS ####[place] [address] USACannabinoid Screen,UrineNegativeNormalNegative The [facility] Physician GroupComment on above:Result Comment: These are unconfirmed results and should not be used for legal purposes. Drug Cut-Off Concentration: AMPH 1000 ng/mL BHASKAR 200 ng/mL RIKKI 200 ng/mL COCM 300 ng/mL OP 300 ng/mL PCP 25 ng/mL THC 20 ng/mLPERFORMED BY:[address] [place]lettJerem[place], [place] [phone] MEDICAL DIRECTORCELESTE GERMAN M.D.Performed By: #### URDS ####[place] [address] USACocaine Screen,UrineNegative NormalNegativeThe [facility] Physician [facility] WesleyComment on above:Performed By: #### URDS ####[place] [address] [place] Opiate Screen,UrineNegativeNormalNegativeThe [facility] Physician GroupComment on above:Performed By: #### URDS ####[place] [address] USAPhencyclidine Screen,UrineNegativeNormalNegativeThe [facility] Physician GroupComment on above:Performed By: #### URDS ####[place] [address] USAFree T4 (Free Thyroxine)on 70-32-0571Ehbd T4 [Mass/Vol]0.40 ng/dLLow0.61-1.12The [facility] Physician GroupComment on above:Performed By: #### TSH3, T4F, T4T ####[place] [address] USAHepatic Panelon 79-97-5995Nvpizjn [Mass/Vol]3.7 g/dLNormal3.5-5.7The [facility] Physician [facility] Comment on above:Performed By: #### PTT, SCAN CBC, UFHEP, PT, CUBLD, BNP, MG, LACTIC, BMP, HEPATIC ####[place] [address] USAAlbumin/Globulin [Mass ratio]1.4 {ratio}NormalThe [facility] Physician GroupComment on above:Performed By: #### PTT, SCAN CBC, UFHEP, PT, CUBLD, BNP, MG, LACTIC, BMP, HEPATIC ####[place] [address] USAALP [Catalytic activity/Vol]74 U/L Betemv34-289Cma [facility] Physician [facility] WesleyComment on above:Performed By: #### PTT, SCAN CBC, UFHEP, PT, CUBLD, BNP, MG, LACTIC, BMP, HEPATIC ####[place] [address] USAALT [Catalytic activity/Vol]16 U/LNormal7-52The [facility] Physician [facility] WesleyComment on above: Performed By: #### PTT, SCAN CBC, UFHEP, PT, CUBLD, BNP, MG, LACTIC, BMP, HEPATIC ####[place] [address] USAAST [Catalytic activity/Vol]26 U/ITdvpkv03-95Qvx [facility] Physician [facility] Comment on above:Performed By: #### PTT, SCAN CBC, UFHEP, PT, CUBLD, BNP, MG, LACTIC, BMP, HEPATIC ####[place] [address] USABilirubin [Mass/Vol]1.1 mg/dLHigh0.3-1.0The [facility] Physician GroupComment on above:Performed By: #### PTT, SCAN CBC, UFHEP, PT, CUBLD, BNP, MG, LACTIC, BMP, HEPATIC ####[place] [address] USABilirubin,Indirect0.8 mg/dLNormalThe [facility] Physician GroupComment on above:Performed By: #### PTT, SCAN CBC, UFHEP, PT, CUBLD, BNP, MG, LACTIC, BMP, HEPATIC ####[place] [address] USABilirubin.indirect [Mass/Vol]0.30 mg/dLHigh0.03-0.18The [facility] Physician GroupComment on above:Performed By: #### PTT, SCAN CBC, UFHEP, PT, CUBLD, BNP, MG, LACTIC, BMP, HEPATIC ####[place] [address] [place] Globulin (S) [Mass/Vol]2.7 g/dLNormalThe [facility] Physician GroupComment on above:Performed By: #### PTT, SCAN CBC, UFHEP, PT, CUBLD, BNP, MG, LACTIC, BMP, HEPATIC ####[place] [address] USAProtein [Mass/Vol]6.4 g/dLNormal6.4-8.9The [facility] Physician GroupComment on above:Performed By: #### PTT, SCAN CBC, UFHEP, PT, CUBLD, BNP, MG, LACTIC, BMP, HEPATIC ####[place] [phone] USALactic Acidon 06-67-4504Zbhzmti [Moles/Vol]2.3 mmol/LOff scale high 0.5-1.9The [facility] Physician [facility] WesleyComment on above:Result Comment: Critical Result : Called to and read back by: IDANIA OCHOA at: 07/31/2025 21:24:20 by:LFM Lactic Acid reference range has been updated to 0.5 ? 1.9 mmol/L and the critical range of 2.0 orgreater.PERFORMED BY:[address] [place], [place] [phone] MEDICAL ELÍAS GERMAN M.D.Performed By: #### PTT, SCAN CBC, UFHEP, PT, CUBLD, BNP, MG, LACTIC, BMP, HEPATIC ####[place] [address] USALevetiracetam (Keppra)on 87-88-0086nrsOAZVPymttk [Mass/Vol]9.2 ug/rVTirrpk82.0-40.0The [facility] Physician GroupComment on above: Result Comment: Performed at: [facility] [id number] LabDirector: Gareth Alford MD, Phone: [phone] BY:[address]ETIGOR [place], [place] [phone] MEDICAL ELÍAS GERMAN M.D.Performed By: #### LEV ####[facility] ,Magnesiumon 58-79-6708Rcuvttqha [Mass/Vol]2.3 mg/dLNormal1.9-2.7The [facility] Physician GroupComment on above: Result Comment: PERFORMED BY:[address] [address] [address] [address] [place], [place] [phone] MEDICAL ELÍAS GERMAN M.D.Performed By: #### PTT, SCAN CBC, UFHEP, PT, CUBLD, BNP, MG, LACTIC, BMP, HEPATIC ####[address] [place] [address] USAPartial Thromboplastin Timeon 80-68-2707uKMX Coag (Bld) [Time]30.6 sNormal 25.1-36.5The [facility] Physician GroupComment on above:Result Comment: A hematocrit value greater than 55% may lead to inaccurate results in coagulation testing. Patients having hematocrit values >55% require a special collection tube for coagulation studies. Please contact the laboratory at [phone] for redraw instructions.Performed By: #### PTT, SCAN CBC, UFHEP, PT, CUBLD, BNP, MG, LACTIC, BMP, HEPATIC ####[address] [address] USAProthrombin Time INRon 89-02-0102JWQ Coag (PPP) [Relative time]0.9 {INR}NormalThe [facility] Physician GroupComment on above: Result Comment: [...] PT, CUBLD, BNP, MG, LACTIC, BMP, HEPATIC ####[id number] [place] [id number] USAPT Coag (PPP) [Time]10.6 sNormal9.0-12.9The [facility] Physician GroupComment on above:Result Comment: A hematocrit value greater than 55% may lead to inaccurate results in coagulation testing. Patients having hematocrit values >55% require a special collection tube for coagulation studies. Please contact the laboratory at [phone] for redraw instructions. Performed By: #### PTT, SCAN CBC, UFHEP, PT, CUBLD, BNP, MG, LACTIC, BMP, HEPATIC ####[address] [address] USAScan and CBCon 61-06-0596Aaqcuwdbzktz Ql (Bld)SlightNormalThe [facility] Physician GroupComment on above:Performed By: #### PTT, SCAN CBC, UFHEP, PT, CUBLD, BNP, MG, LACTIC, BMP, HEPATIC ####[address] [address] USABasophils (Bld) [#/Vol]0.0 10*3/uLNormal 0.0-0.2The [facility] Hershey Medical CenterComment on above:Performed By: #### PTT, SCAN CBC, UFHEP, PT, CUBLD, BNP, MG, LACTIC, BMP, HEPATIC ####[address] [address] USABasophils/100 WBC (Bld)0.2 % Normal.The [facility] Physician GroupComment on above:Performed By: #### PTT, SCAN CBC, UFHEP, PT, CUBLD, BNP, MG, LACTIC, BMP, HEPATIC ####[place] [address] USAEosinophils (Bld) [#/Vol]0.0 10*3/uLNormal0.0-0.45The [facility] Physician GroupComment on above:Performed By: #### PTT, SCAN CBC, UFHEP, PT, CUBLD, BNP, MG, LACTIC, BMP, HEPATIC ####[place] [address] [place] Eosinophils/100 WBC (Bld)0.1 %Normal.The [facility] Physician GroupComment on above:Performed By: #### PTT, SCAN CBC, UFHEP, PT, CUBLD, BNP, MG, LACTIC, BMP, HEPATIC ####[place] [address] USAErythrocyte distribution width (RBC) [Ratio]15.6 %High12.0-14.8The [facility] Physician GroupComment on above:Performed By: #### PTT, SCAN CBC, UFHEP, PT, CUBLD, BNP, MG, LACTIC, BMP, HEPATIC ####[place] [address] USAHematocrit (Bld) [Volume fraction]43.4 %Normal 38.8-50.0The [facility] Physician GroupComment on above:Performed By: #### PTT, SCAN CBC, UFHEP, PT, CUBLD, BNP, MG, LACTIC, BMP, HEPATIC ####[place] [address] USAHemoglobin (Bld) [Mass/Vol] 14.1 g/cXQdgcvw68.0-17.0The [facility] Physician GroupComment on above:Performed By: #### PTT, SCAN CBC, UFHEP, PT, CUBLD, BNP, MG, LACTIC, BMP, HEPATIC ####[place] [address] [place] Lymphocytes (Bld) [#/Vol]0.3 10*3/uLLow1.00-4.8The [facility] Comment on above:Performed By: #### PTT, SCAN CBC, UFHEP, PT, CUBLD, BNP, MG, LACTIC, BMP, HEPATIC ####[address] StreetLymphocytes/100 WBC (Bld)8.0 %Normal.The [facility] Physician GroupComment on above:Performed By: #### PTT, SCAN CBC, UFHEP, PT, CUBLD, BNP, MG, LACTIC, BMP, HEPATIC ####[address] (RBC) [Entitic mass]30.7 paYvxgqk14.5-35.2 The [facility] Physician GroupComment on above:Performed By: #### PTT, SCAN CBC, UFHEP, PT, CUBLD, BNP, MG, LACTIC, BMP, HEPATIC ####[address] (RBC) [Entitic vol]94.3 fLNormal 83.5-101The [facility] Physician GroupComment on above:Performed By: #### PTT, SCAN CBC, UFHEP, PT, CUBLD, BNP, MG, LACTIC, BMP, HEPATIC ####[address] Corpuscular HGB Conc32.5 g/bVQnosod75.5-35.6The [facility] Physician GroupComment on above:Performed By: #### PTT, SCAN CBC, UFHEP, PT, CUBLD, BNP, MG, LACTIC, BMP, HEPATIC ####[address] MicrocytosisSlightNormalThe [facility] Physician GroupComment on above:Performed By: #### PTT, SCAN CBC, UFHEP, PT, CUBLD, BNP, MG, LACTIC, BMP, HEPATIC ####[address] Monocytes (Bld) [#/Vol]0.3 10*3/uLNormal0.0-0.8The [facility] Comment on above:Performed By: #### PTT, SCAN CBC, UFHEP, PT, CUBLD, BNP, MG, LACTIC, BMP, HEPATIC ####[place] [address] USAMonocytes/100 WBC (Bld)7.4 %Normal.The [facility] Physician GroupComment on above:Performed By: #### PTT, SCAN CBC, UFHEP, PT, CUBLD, BNP, MG, LACTIC, BMP, HEPATIC ####[place] [address] USANeutrophils (Bld) [#/Vol]3.5 10*3/uLNormal 1.8-7.7The [facility] Physician GroupComment on above:Performed By: #### PTT, SCAN CBC, UFHEP, PT, CUBLD, BNP, MG, LACTIC, BMP, HEPATIC ####[place] [address] USANeutrophils/100 WBC (Bld)84.3 %Normal.The [facility] Physician GroupComment on above:Performed By: #### PTT, SCAN CBC, UFHEP, PT, CUBLD, BNP, MG, LACTIC, BMP, HEPATIC ####[place] [address] USANRBC%0.6 /100{WBC}High0-0.5 The [facility] Physician GroupComment on above:Performed By: #### PTT, SCAN CBC, UFHEP, PT, CUBLD, BNP, MG, LACTIC, BMP, HEPATIC ####[place] [address] USAPlatelet EstimateNormalNormalNormalThe [facility] Physician GroupComment on above:Performed By: #### PTT, SCAN CBC, UFHEP, PT, CUBLD, BNP, MG, LACTIC, BMP, HEPATIC ####[place] [address] USAPlatelet mean volume (Bld) [Entitic vol]7.6 fLNormal6.6-10.1The [facility] Physician GroupComment on above:Performed By: #### PTT, SCAN CBC, UFHEP, PT, CUBLD, BNP, MG, LACTIC, BMP, HEPATIC ####[address] [address] [place] Platelet MorphologyNormalNormalBaptist Health Bethes[facility] East Physician GroupComment on above:Result Comment: PERFORMED BY:[address] [place], [place] [phone] MEDICAL ELÍAS GERMAN M.D.Performed By: #### PTT, SCAN CBC, UFHEP, PT, CUBLD, BNP, MG, LACTIC, BMP, HEPATIC ####[address] [address] USAPlatelets (Bld) [#/Vol]210 10*3/kKXluvpf612-537Kea [facility] Group Comment on above:Performed By: #### PTT, SCAN CBC, UFHEP, PT, CUBLD, BNP, MG, LACTIC, BMP, HEPATIC ####[place] [address] [id number] USAPolychromasiaSlightBaptist Health Bethesda Hospital East Physician GroupComment on above:Performed By: #### PTT, SCAN CBC, UFHEP, PT, CUBLD, BNP, MG, LACTIC, BMP, HEPATIC ####[id number] USARBC (Bld) [#/Vol]4.60 10*6/uLNormal3.90-5.60The [facility] Physician GroupComment on above:Performed By: #### PTT, SCAN CBC, UFHEP, PT, CUBLD, BNP, MG, LACTIC, BMP, HEPATIC ####[id number] USAWBC (Bld) [#/Vol]4.2 10*3/uLNormal 4.1-10.5The [facility] Physician GroupComment on above:Performed By: #### PTT, SCAN CBC, UFHEP, PT, CUBLD, BNP, MG, LACTIC, BMP, HEPATIC ####[id number] USAWhite Blood Count4.2 [CFU]/mL Normal4.1-10.5The [facility] Physician GroupComment on above:Performed By: #### PTT, SCAN CBC, UFHEP, PT, CUBLD, BNP, MG, LACTIC, BMP, HEPATIC ####[address] [place] [address] USAThyroid Stimulating Hormoneon 05-91-9442LAT Qn30.17 m[IU]/LHigh0.45-5.33The [facility] Physician GroupComment on above:Result Comment: PERFORMED BY:[address] [place], [place] [phone] MEDICAL ELÍAS GERMAN M.D.Performed By: #### TSH3, T4F, T4T ####[address] [facility] [address] USAThyroxine (T4) Total on 63-78-7983P4 [Mass/Vol]1.43 ug/dLLow5.39-11.82The [facility] Comment on above:Performed By: #### TSH3, T4F, T4T ####[address] [place] [address] USAToxassure, Urineon 07-31-2025 Toxassure, Urine SummaryFINALNormal.The [facility] Physician GroupComment on above:Result Comment: TOXASSURE [...] clinical consultation, please call . Performed at: [employer] [address] [id number] [place]: Lesia Balderas, Phone: [phone] BY:[address] [address] [place] [place]UEZW[place], [place] [phone] MEDICAL DIRECTORCELESTE GERMAN M.D.Performed By: #### TOXASSURE ####[facility] ,Troponin I High Sensitivityon 87-79-4089Phfkvnud I High Bgfuvqvqfvu0355Xhx scale [facility] Physician [facility] WesleyComment on above: Result Comment: Critical Result : Called to and read back by: IDANIA OCHOA at: 07/31/2025 21:39:42 by:[facility] The Troponin units of report have been changed to meet the Chest Pain Accreditation requirement, element EC5.M1l2. Troponin units are changed from pg/ml to ng/L. Also, the decimal is removed and results are in whole numbers.PERFORMED BY:[phone] MEDICAL DIRECTORCELESTE GERMAN M.D.Performed By: #### CK, HS TROP ####[address] [address] USAUrine Cultureon 77-01-9512Awydesta identified Cx Nom (U)No Growth 2 Days PERFORMED BY: [place] [address] PATHOLOGIST WORK ORDER CLERK CELESTE GERMAN M.D.NormalJefferson Davis Community HospitalComment on above: Performed By: #### CUU ####[id number] USABacteria identified Cx Nom (U)Urine Culture Results No Growth 2 Days PERFORMED BY: [id number] PATHOLOGIST WORK ORDER CLERK CELESTE GERMAN M.D.[facility] Community HospitalComment on above: Performed By: #### CUU ####[address] [address] USAUrine cultureOrdered By: Salty Luis on 07-31-2025 Bacteria identified Cx Nom (U)[facility] CenterXR chest 1V portableon 39-84-8018KW chest 1V [facility] hospitalNoDosher [facility] Physician [facility] Arterial Blood Gason 34-71-8265HHG Base Excess0.2 mmol/LNormal-3.0-3.0The [place] Physician GroupComment on above:Performed By: #### ABG ####Point of Care testing,ABG Frac Inspired H5PccuhqGyz [facility] Physician GroupComment on above:Performed By: #### ABG ####Point of Care testing,ABG Liter Wmvi8QEyqxmeRbg [facility] Physician GroupComment on above:Performed By: #### ABG ####Point of Care testing,ABG Oxygen Content9.8 mmol/LHigh6.6-9.7The [facility] Physician GroupComment on above:Performed By: #### ABG ####Point of Care testing,ABG Oxygen Wexqqszfkc18.5 %Khnlem47.0-100.0The [facility] Physician GroupComment on above:Performed By: #### ABG ####Point of Care testing,ABG ZXH283.3 mm[Hg]Normal 35.0-45.0The [facility] Physician GroupComment on above:Performed By: #### ABG ####Point of Care testing,ABG PH7.85Qvzjpd4.35-7.45The [facility] Comment on above:Performed By: #### ABG ####Point of Care testing,ABG PO287.8 mm[Hg]Fuetfz99.0-100.0The [facility] Physician GroupComment on above:Performed By: #### ABG ####Point of Care testing,CO2 [Moles/Vol]26.3 mmol/PNsubno60.0-27.0 The [facility] Physician GroupComment on above:Performed By: #### ABG ####Point of Care testing,HCO3 (Bld) [Moles/Vol]25.0 mmol/PCchsox33.0-29.0The [facility] Physician GroupComment on above:Performed By: #### ABG ####Point of Care testing,Oxygen DeviceNasal CannulaNormNicklaus Children's Hospital at St. [facility] Physician GroupComment on above:Performed By: #### ABG ####Point of Care testing,Respiratory Critical NormalThe [facility] Physician GroupComment on above:Result Comment: Critical Value called on: 06/07/2025 at 13:57PERFORMED BY:[address] [address] [place], [place] [phone] MEDICAL DIRECTORCELESTE GERMAN M.D.Performed By: #### ABG ####Point of Care testing, VBG Draw SiteRigLower Keys Medical Center Physician GroupComment on above: Performed By: #### ABG ####Point of Care testing,Complete Blood Count Auto Diff on 77-10-2173Rqctntqow (Bld) [#/Vol]0.0 10*3/uLNormal0.0-0.2The [facility] Physician GroupComment on above:Result Comment: PERFORMED BY:[address] [place], [place] [phone] MEDICAL DIRECTORCELESTE GERMAN M.D.Performed By: #### CMP, CBC ####[address] [address] USABasophils/100 WBC (Bld)0.4 % Normal.The [facility] Physician GroupComment on above:Performed By: #### CMP, CBC ####[address] [address] [place] Eosinophils (Bld) [#/Vol]0.0 10*3/uLNormal0.0-0.45The [facility] Comment on above:Performed By: #### CMP, CBC ####[address] [address] USAEosinophils/100 WBC (Bld)0.1 %Normal. The [facility] Physician GroupComment on above:Performed By: #### CMP, CBC ####[address] [address] [place] Erythrocyte distribution width (RBC) [Ratio]15.5 %High12.0-14.8The [facility] Physician GroupComment on above:Performed By: #### CMP, CBC ####[address] [address] USAHematocrit (Bld) [Volume fraction]46.4 %Clhaia85.8-50.0The [facility] Physician GroupComment on above:Performed By: #### CMP, CBC ####[place] [address] USAHemoglobin (Bld) [Mass/Vol]15.2 g/dMEdwcfe48.0-17.0 The [facility] Physician GroupComment on above:Performed By: #### CMP, CBC ####[place] [address] [place] Lymphocytes (Bld) [#/Vol]0.5 10*3/uLLow1.00-4.8The [facility] Comment on above:Performed By: #### CMP, CBC ####[place] [address] USALymphocytes/100 WBC (Bld)7.4 %Normal. The [facility] Physician GroupComment on above:Performed By: #### CMP, CBC ####[address] StreetMCH (RBC) [Entitic mass]29.6 nfWugnnj94.5-35.2The [facility] Physician GroupComment on above:Performed By: #### CMP, CBC ####[place] [address] USAMCV (RBC) [Entitic vol]90.3 bYBucddr10.5-101 The [facility] Physician GroupComment on above:Performed By: #### CMP, CBC ####[place] [address] USAMean Corpuscular HGB Conc32.7 g/yWBdaaoi47.5-35.6The [facility] Physician GroupComment on above:Performed By: #### CMP, CBC ####[place] [address] USAMonocytes (Bld) [#/Vol]0.2 10*3/uLNormal 0.0-0.8The [facility] Physician GroupComment on above:Performed By: #### CMP, CBC ####[place] [address] [place] Monocytes/100 WBC (Bld)3.3 %Normal.The [facility] Physician GroupComment on above:Performed By: #### CMP, CBC ####[place] [address] USANeutrophils (Bld) [#/Vol]5.8 10*3/uLNormal1.8-7.7The [facility] Physician GroupComment on above:Performed By: #### CMP, CBC ####[place] [address] [place] Neutrophils/100 WBC (Bld)88.8 %Normal.The [facility] Physician GroupComment on above:Performed By: #### CMP, CBC ####[place] [address] USANRBC%0.1 /100{WBC}Normal0-0.5The [facility] Physician GroupComment on above:Performed By: #### CMP, CBC ####[place] [address] USAPlatelet mean volume (Bld) [Entitic vol]6.7 fLNormal6.6-10.1The [facility] Physician GroupComment on above: Performed By: #### CMP, CBC ####[place] [address] USAPlatelets (Bld) [#/Vol]225 10*3/qWYccpoj547-746Etx [facility] Physician GroupComment on above:Performed By: #### CMP, CBC ####[place] [address] USARBC (Bld) [#/Vol]5.14 10*6/uLNormal3.90-5.60The [facility] Physician GroupComment on above:Performed By: #### CMP, CBC ####[place] [address] USAWBC (Bld) [#/Vol]6.6 10*3/uLNormal4.1-10.5The [facility] Physician GroupComment on above:Performed By: #### CMP, CBC ####[address] [address] USAWhite Blood Count6.6 [CFU]/mLNormal4.1-10.5The [facility] Physician GroupComment on above:Performed By: #### CMP, CBC ####[address] [address] USAComprehensive Metabolic Panelon 67-17-6218Ftdkvfe [Mass/Vol]4.3 g/dLNormal3.5-5.7The [facility] Physician GroupComment on above: Performed By: #### CMP, CBC ####[address] [address] USAAlbumin/Globulin [Mass ratio]1.5 {ratio}NormalThe [facility] Physician GroupComment on above:Performed By: #### CMP, CBC ####[address] [address] USAALP [Catalytic activity/Vol]97 U/GTkuiyt82-440Qtb [facility] Physician GroupComment on above:Performed By: #### CMP, CBC ####[address] [address] USAALT [Catalytic activity/Vol]22 U/LNormal7-52 The [facility] Physician GroupComment on above:Performed By: #### CMP, CBC ####[address] [address] USAAnion gap [Moles/Vol]9.2 mmol/LNormal6.0-15.0The [facility] Physician GroupComment on above:Performed By: #### CMP, CBC ####[address] [address] USAAST [Catalytic activity/Vol]57 U/EGwcp42-92Opq [facility] Physician GroupComment on above:Performed By: #### CMP, CBC ####[address] [address] [place] Bilirubin [Mass/Vol]0.8 mg/dLNormal0.3-1.0The [facility] Physician GroupComment on above:Performed By: #### CMP, CBC ####[address] [address] USACalcium [Mass/Vol]9.3 mg/dLNormal8.6-10.3The [facility] Physician GroupComment on above:Performed By: #### CMP, CBC ####[address] [address] [place] Chloride [Moles/Vol]98 mmol/HRlzvgo66-495Fyr [facility] Physician GroupComment on above:Performed By: #### CMP, CBC ####[address] [address] USACO2 [Moles/Vol]30.8 mmol/LQqhoxk99.0-31.0The [facility] Physician GroupComment on above:Performed By: #### CMP, CBC ####[place] [id number] [place] Creatinine [Mass/Vol]1.39 mg/dLHigh0.70-1.30The [facility] Physician GroupComment on above:Performed By: #### CMP, CBC ####[address] [address] USACreatinine Clr Calc Fjrbuvpx99.68NoDosher Memorial Hospital Physician GroupComment on above:Result Comment: PERFORMED BY:[address] [place], [place] [phone] MEDICAL ELÍAS GERMAN M.D.Performed By: #### CMP, CBC ####[address] [address] USAGFR/1.73 sq M.predicted MDRD (S/P/Bld) [Vol rate/Area]55.911 mL/min/{1.73_m2}NormalThe [facility] Physician GroupComment on above:Performed By: #### CMP, CBC ####[address] [address] [place] Globulin (S) [Mass/Vol]2.9 g/dLBaptist Health Bethesda Hospital East Physician GroupComment on above:Performed By: #### CMP, CBC ####[address] [place] [address] USAGlucose [Mass/Vol]189 mg/mIRprb87-879Lws [facility] Physician GroupComment on above:Result Comment: Random Glucose Reference Range is dependent on time and content of last meal. Glucose of more than 200 mg/dL in a nonstressed, ambulatory subject supports the diagnosis of Diabetes Mellitus. ADA recommended reference rangePerformed By: #### CMP, CBC ####[place] [address] USAPotassium [Moles/Vol] 4.0 mmol/LNormal3.5-5.1The [facility] Physician GroupComment on above:Performed By: #### CMP, CBC ####[place] [address] USAProtein [Mass/Vol]7.2 g/dLNormal6.4-8.9The [facility] Comment on above:Performed By: #### CMP, CBC ####[place] [address] USASodium [Moles/Vol]134 mmol/UYkm302-724 The [facility] Physician GroupComment on above:Performed By: #### CMP, CBC ####[place] [address] USAUrea nitrogen [Mass/Vol]17 mg/dLNormal7-25The [facility] Physician GroupComment on above:Performed By: #### CMP, CBC ####[place] [address] USADrug Screen,Urineon 72-50-6518Pvgqzwbqwcy Screen,UrinePositiveNormalNegativeThe [facility] Physician GroupComment on above: Performed By: #### URDS ####[place] [address] USABarbiturate Screen,UrineNegativeNormalNegativeThe [facility] Physician GroupComment on above:Performed By: #### URDS ####[place] [address] USABenzodiazepines Screen,UrinePositiveNormalNegativeThe [facility] Physician GroupComment on above: Performed By: #### URDS ####[address] [address] USACannabinoid Screen,UrinePositiveNormalNegativeAdventhealth Tampa Physician GroupComment on above:Result Comment: These are unconfirmed results and should not be used for legal purposes. Drug Cut-Off Concentration: AMPH 1000 ng/mL BHASKAR 200 ng/mL RIKKI 200 ng/mL COCM 300 ng/mL OP 300 ng/mL PCP 25 ng/mL THC 20 ng/mLPERFORMED BY:[address] [address] [address] [place], [place] [phone] MEDICAL ELÍAS GERMAN M.D.Performed By: #### URDS ####[address] [address] USACocaine Screen,UrineNegativeNormalNegativeAdventhealth Tampa Physician GroupComment on above:Performed By: #### URDS ####[address] [address] USAOpiate Screen,Urine PositiveNormalNegativeThe [facility] Physician GroupComment on above:Performed By: #### URDS ####[address] [address] USAPhencyclidine Screen,UrineNegativeNormalNegativeAdventhealth Tampa Physician GroupComment on above:Performed By: #### URDS ####[address] [address] USAECG 12 lead ECGon 41-05-5540CDC 12 lead ECGNoDosher Memorial Hospital Physician GroupECG 12 lead ECGNoDosher Memorial Hospital Physician [facility] WesleyGlucose Poct Glucometerson 14-09-4818Vdnjaqm0Mzb9: Cleaned Meter NormalAdventhealth Tampa Physician [facility] WesleyComment on above:Result Comment: PERFORMED BY:[address] [address] [place] [place], [place] [phone] MEDICAL ELÍAS GERMAN M.D.Performed By: #### GLULS ####Point of Care testing,Glucose [Mass/Vol]91 mg/dLNoDosher Memorial Hospital Physician GroupComment on above:Result Comment: Random Glucose Reference Range is dependent on time and content of last meal. Glucose of more than 200 mg/dL in a nonstressed, ambulatory subject supports the diagnosis of Diabetes Mellitus. Performed By: #### GLULS ####Point of Care testing,Troponin I High Sensitivityon 79-35-5565Ujszxwpz I High Hiueninscwp88676Vmq scale [address] Physician GroupComment on above:Result Comment: Critical Result I_TnIHS_d:[id number] Called to and read back by: JANY SANDOVAL at: 06/07/2025 17:28:45 by:[id number] The Troponin units of report have been changed to meet the Chest Pain Accreditation requirement, element EC5.M1l2. Troponin units are changed from pg/ml to ng/L. Also, the decimal is removed and results are in whole numbers.PERFORMED BY:[address] [address] [address] [place], [place] [phone] MEDICAL ELÍAS GERMAN M.D.Performed By: #### HS TROP ####[address] [address] USATroponin I High Qrwsxbrpdoi29252Scv [address] Physician [facility] WesleyComment on above:Order Comment: per rn jemsa wait till they sedate ptResult Comment: Critical Result I_TnIHS_d:[id number] Called to and read back by: JANY SANDOVAL at: 06/07/2025 15:32:31 by:[id number] The Troponin units of report have been changed to meet the Chest Pain Accreditation requirement, element EC5.M1l2. Troponin units are changed from pg/ml to ng/L. Also, the deci mal is removed and results are in whole numbers.PERFORMED BY:[address] [place], [place] [phone] MEDICAL ELÍAS GERMAN M.D.Performed By: #### HS TROP ####[address] [address] USATroponin I High Sensitivity 6616Off scale [address] Physician GroupComment on above:Order Comment: rn [...] removed andresults are in whole numbers.PERFORMED BY:[address] ANDREEJeremiCAR[place], [place] [phone] MEDICAL DIRECTORCELESTE GERMAN M.D.Performed By: #### HS TROP ####[address] [address] USABasic Metabolic Panelon 01-71-9094Bbfwr gap [Moles/Vol]13.2 mmol/L Normal6.0-15.0The [facility] Physician GroupComment on above:Performed By: #### MG BMP, CBCNO ####[address] [address] USACalcium [Mass/Vol]9.7 mg/dLNormal8.6-10.3[facility] Comment on above:Performed By: #### MG BMP, CBCNO ####[address] [address] USAChloride [Moles/Vol]105 mmol/L Xikuqi23-692Uzy [facility] Physician GroupComment on above:Performed By: #### MG BMP, CBCNO ####[address] [address] USACO2 [Moles/Vol]25.2 mmol/VNqnbgt47.0-31.0[facility] Comment on above:Performed By: #### MG, BMP, CBCNO ####[address] [address] USACreatinine [Mass/Vol]0.81 mg/dLNormal0.70-1.30The [facility] Physician GroupComment on above:Performed By: #### MG, BMP, CBCNO ####[facility] [place] [address] USACreatinine Clr Calc Csjvuamq11.46NormalThBingham Memorial Hospital Physician GroupComment on above:Performed By: #### LISA HAIR CBCNO ####[address] [place] [address] USAGFR/1.73 sq M.predicted MDRD (S/P/Bld) [Vol rate/Area]mL/min/{1.73_m2}NormalThe [facility] Comment on above:Performed By: #### LISA HAIR CBCNO ####[address] [place] [address] USAGlucose [Mass/Vol]103 mg/dL Aiti55-004Hgh [facility] Physician GroupComment on above:Result Comment: Random Glucose Reference Range is dependent on time and content of last meal. Glucose of more than 200 mg/dL in a nonstressed, ambulatory subject supports the diagnosis of Diabetes Mellitus. ADA recommended reference rangePerformed By: #### LISA HAIR CBCNO ####[address] [place] [address] USAPotassium [Moles/Vol]3.4 mmol/LLow3.5-5.1The [facility] Physician GroupComment on above:Performed By: #### LISA HAIR CBCNO ####[address] [address] USASodium [Moles/Vol]140 mmol/L Szszky616-412Ezy [facility] Physician GroupComment on above:Performed By: #### LISA HAIR CBCNO ####[address] [place] [address] USAUrea nitrogen [Mass/Vol]19 mg/dLNormal7-25The [facility] Comment on above:Performed By: #### LISA HAIR CBCNO ####[address] [address] USACalcium [Mass/volume] in Serum or PlasmaOrdered By: Yamila Donald on 06-98-9905Jhounee [Mass/Vol]Calcium [Mass/volume] in Serum or Plasma8.6-10.3FSelect Medical Specialty Hospital - AkronCarbon dioxide, total [Moles/volume] in Serum or PlasmaOrdered By: Yamila Donald on 77-74-7588BR6 [Moles/Vol]Carbon dioxide, total [Moles/volume] in Serum or Plasma 21.0-31.0[facility] CenterChloride [Moles/volume] in Serum or PlasmaOrdered By: Yamila Donald on 36-07-0485Brisdhjp [Moles/Vol]Chloride [Moles/volume] in Serum or Nqqqns49-806KxkqaruarAshtabula County Medical Center Creatinine [Mass/volume] in Serum or PlasmaOrdered By: Yamila Donald on 51-42-7605Nxhqrmdpkt [Mass/Vol]Creatinine [Mass/volume] in Serum or Plasma 0.70-1.30[facility] CenterErythrocyte distribution width Auto (RBC) [Ratio]Ordered By: Yamila Donald on 52-82-5429Incleulssoz distribution width (RBC) [Ratio]Erythrocyte distribution width [Ratio] by Automated count 12.0-14.8[facility] CenterGlucose [Mass/volume] in Serum or PlasmaOrdered By: Yamila Donald on 28-01-5887Dfcbuze [Mass/Vol]Glucose [Mass/volume] in Serum or HekggvXgnq78-335CpbvhpffoAshtabula County Medical Center Comment on above:ADA recommended reference rangeRandom Glucose Reference Range is dependent on time and content of last meal. Glucose of more than 200 mg/dL in a nonstressed, ambulatory subject supports the diagnosisof Diabetes Mellitus. Hematocrit Auto (Bld) [Volume fraction]Ordered By: Yamila Donald on 11-19-2024 Hematocrit (Bld) [Volume fraction]Hematocrit [Volume Fraction] of Blood by Automated count38.8-50.0[facility] CenterHemoglobin [Mass/volume] in BloodOrdered By: Yamila Donald on 17-46-6656Ldkrglhdby (Bld) [Mass/Vol]Hemoglobin [Mass/volume] in Blood13.0-17.0[facility] Medical CenterHemogram CBC Without Diffon 79-21-7502Ekteudbmusi distribution width (RBC) [Ratio]13.7 %Uotbop74.0-14.8The [facility] Physician GroupComment on above: Performed By: #### MG, BMP, CBCNO ####[address] [address] USAHematocrit (Bld) [Volume fraction]45.8 %Normal 38.8-50.0The [facility] Physician GroupComment on above:Performed By: #### MG, BMP, CBCNO ####[place] [address] USAHemoglobin (Bld) [Mass/Vol]15.4 g/kOFuueus94.0-17.0The [facility] Physician GroupComment on above:Performed By: #### MG, BMP, CBCNO ####[address] [address] [facility] (RBC) [Entitic mass]29.0 ekGnikbi45.5-35.2The [facility] Physician GroupComment on above:Performed By: #### MG, BMP, CBCNO ####[place] [phone] [facility] (RBC) [Entitic vol]86.4 sIZfssqz76.5-101The [facility] Physician GroupComment on above:Performed By: #### MG, BMP, CBCNO ####[place] [address] USAMean Corpuscular HGB Conc33.5 g/wYQsrlkh06.5-35.6The [facility] Physician GroupComment on above:Performed By: #### MG, BMP, CBCNO ####[place] [address] USAPlatelet mean volume (Bld) [Entitic vol]7.9 fLNormal6.6-10.1The [facility] Physician GroupComment on above:Result Comment: PERFORMED BY:[address] [place], [place] [phone] MEDICAL DIRECTORVÍCTOR LUCERO M.D.Performed By: #### MG, BMP, CBCNO ####[address] [address] [place] [address] [place] Platelets (Bld) [#/Vol]203 10*3/mDUrlrnf246-137Kyj [facility] Comment on above:Performed By: #### MG, BMP, CBCNO ####[facility] [address] [place] [address] USARBC (Bld) [#/Vol]5.31 10*6/uL Normal3.90-5.60The [facility] Physician GroupComment on above:Performed By: #### MG, BMP, CBCNO ####[facility] [address] [place] [address] USAWBC (Bld) [#/Vol]8.2 10*3/uLNormal4.1-10.5[facility] Comment on above:Performed By: #### MG, BMP, CBCNO ####[facility] [address] [place] [address] USALeukocytes [#/volume] corrected for nucleated erythrocytes in Blood by Automated counOrdered By: Yamila Donald on 06-05-0464ETY corrected for nucl RBC Auto (Bld) [#/Vol] Leukocytes [#/volume] corrected for nucleated erythrocytes in Blood by Automated coun4.1-10.5FMetroHealth Cleveland Heights Medical CenterH Auto (RBC) [Entitic mass] Ordered By: Yamila Donald on 85-76-4489GFO (RBC) [Entitic mass]MCH [Entitic mass] by Automated count27.5-35.2FSelect Medical Specialty Hospital - AkronMCHC Auto (RBC) [Mass/Vol]Ordered By: Yamila Donald on 06-26-9837LKBA (RBC) [Mass/Vol] MCHC [Mass/volume] by Automated count32.5-35.6FSelect Medical Specialty Hospital - Akron MCV Auto (RBC) [Entitic vol]Ordered By: Yamila Donald on 37-65-9017GYU (RBC) [Entitic vol]MCV [Entitic volume] by Automated count83.5-101[facility] CenterMR head/brain wo conon 20-02-9647EH head/brain wo conNormalThe [facility] Physician GroupMagnesiumon 40-07-4201Eupauxetq [Mass/Vol]1.7 mg/dLLow 1.9-2.7The [facility] Physician GroupComment on above:Result Comment: PERFORMED BY:[facility] [place], [place] [address], [place] [phone] MEDICAL DIRECTORVÍCTOR LUCERO M.D.Performed By: #### MG, BMP, CBCNO ####[facility] [place] [address] USAMagnesium [Mass/volume] in Serum or PlasmaOrdered By: Yamila Donald on 86-38-6063Rwomgqrye [Mass/Vol]Magnesium [Mass/volume] in Serum or PlasmaLow 1.9-2.7FSelect Medical Specialty Hospital - AkronMagnetic resonance imaging reportOrdered By: Regino Mckinley on 07-50-3386Ajoxd reportUNIVERSITY H[facility]ALS [facility] Main Rule [address] [place] [id number] MRI Report Signed Patient: Aaron Olivarez MR#: [id number] : 1960 Acct:[id number] Age/Sex: 64 / M ADM Date: 5 Loc: Room: [address] [place] [address] Type: ADM IN Attending Dr: Yamila Donald [...] Regino Mckinley M.D.11/19/2024 4:50 PM Dictation Location: [place] [address] Transcribed By: YNES 11/19/24 165 Dictated By: Regino Mckinley MD 11/19/24 164 Signed By: 11/19/24 165 [facility] Work Phone: no Panel InformationOrdered By: Yamila Donald on 57-45-7637Cskeowqww GFR (CKD-EPI)> 60.0 mL/MinAshtabula County Medical Center Pharmacy Creatinine Clearance (Chem98.46[facility] Platelet mean volume Auto (Bld) [Entitic vol]Ordered By: Yamila Donald on 92-85-1929Uzdezewr mean volume (Bld) [Entitic vol]Platelet mean volume [Entitic volume] in Blood by Automated count6.6-10.1FSelect Medical Specialty Hospital - Akron Platelets Auto (Bld) [#/Vol]Ordered By: Yamila Donald on 33-55-1918Pmmoaekqc (Bld) [#/Vol]Platelets [#/volume] in Blood by Automated mdbka284-369VhdeqkzxmAshtabula County Medical CenterPotassium [Moles/volume] in Serum or PlasmaOrdered By: Yamila Donald on 45-36-5112Zoncqwuws [Moles/Vol]Potassium [Moles/volume] in Serum or PlasmaLow3.5-5.1FSelect Medical Specialty Hospital - AkronRBC Auto (Bld) [#/Vol] Ordered By: Yamila Donald on 11-35-2490BJI (Bld) [#/Vol]Erythrocytes [#/volume] in Blood by Automated count3.90-5.60Protestant Hospitalerum or plasma anion gap determinationOrdered By: Yamila Donald on 49-37-5844Ebbzu gap [Moles/Vol]Serum or plasma anion gap determination6.0-15.0Protestant Hospitalodium [Moles/volume] in Serum or PlasmaOrdered By: Yamila Donald on 15-66-4154Idfdwu [Moles/Vol]Sodium [Moles/volume] in Serum or Egmowy532-126 [facility] CenterUrea nitrogen [Mass/volume] in Serum or Plasma Ordered By: Yamila Donald on 98-63-1133Jwco nitrogen [Mass/Vol]Urea nitrogen [Mass/volume] in Serum or Plasma7-25[facility] Medical CenterAlanine aminotransferase [Enzymatic activity/volume] in Serum or PlasmaOrdered By: Chaz Frey on 76-06-3184QOA [Catalytic activity/Vol]Alanine aminotransferase [Enzymatic activity/volume] in Serum or Plasma7-52[facility] CenterAlbumin [Mass/volume] in Serum or Plasma by Bromocresol green (BCG) dye binding methoOrdered By: Chaz Frey on 95-35-5212Llvtdbr BCG dye [Mass/Vol] Albumin [Mass/volume] in Serum or Plasma by Bromocresol green (BCG) dye binding metho3.5-5.7FSelect Medical Specialty Hospital - AkronAlkaline phosphatase [Enzymatic activity/volume] in Serum or PlasmaOrdered By: Chaz Frey on 15-62-6764NFJ [Catalytic activity/Vol]Alkaline phosphatase [Enzymatic activity/volume] in Serum or Wzjpae71-557EogdgpndvAshtabula County Medical CenterAspartate aminotransferase [Enzymatic activity/volume] in Serum or PlasmaOrdered By: Chaz Frey on 71-14-1554ZEC [Catalytic activity/Vol]Aspartate aminotransferase [Enzymatic activity/volume] in Serum or Rgtjsd47-75DlgdcemvoAshtabula County Medical Center Basophils Auto (Bld) [#/Vol]Ordered By: Chaz Frey on 27-42-3389Ysknuhnue (Bld) [#/Vol]Automated basophil count0.0-0.2FSelect Medical Specialty Hospital - Akron Basophils/100 WBC Auto (Bld)Ordered By: Chaz Frey on 23-60-4988Xbwspshqz/100 WBC (Bld)Automated basophil %.[facility] Medical CenterBilirubin.total [Mass/volume] in Serum or PlasmaOrdered By: Chaz Frey on 43-95-2744Uzahhqkpf [Mass/Vol]Bilirubin.total [Mass/volume] in Serum or PlasmaHigh0.3-1.0[facility] CenterCalcium [Mass/volume] in Serum or PlasmaOrdered By: Chaz Frey on 71-51-4092Uasavse [Mass/Vol]Calcium [Mass/volume] in Serum or Plasma 8.6-10.3FSelect Medical Specialty Hospital - AkronCarbon dioxide, total [Moles/volume] in Serum or PlasmaOrdered By: Chaz Frey on 78-68-5555TP4 [Moles/Vol]Carbon dioxide, total [Moles/volume] in Serum or IcohhgEruf50.0-31.0[facility] CenterChloride [Moles/volume] in Serum or PlasmaOrdered By: Chaz Frey on 24-86-6482Ibihoswe [Moles/Vol]Chloride [Moles/volume] in Serum or Llqyub58-826PmmxmadudAshtabula County Medical CenterComplete Blood Count Auto Diffon 79-44-0795Urjahqwlb (Bld) [#/Vol]0.0 10*3/uLNormal0.0-0.2The [facility] Physician [facility] WesleyComment on above:Result Comment: PERFORMED BY:[address] [place], [place] [phone] MEDICAL DIRECTORVÍCTOR LUCERO M.D.Performed By: #### HS TROP, PRL, CMP, CBC ####[address] [address] [place] Basophils/100 WBC (Bld)0.6 %Normal.The [facility] Physician GroupComment on above:Performed By: #### HS TROP, PRL, CMP, CBC ####[address] [address] USAEosinophils (Bld) [#/Vol]0.0 10*3/uL Normal0.0-0.45The [facility] Physician GroupComment on above:Performed By: #### HS TROP, PRL, CMP, CBC ####[place] [address] USAEosinophils/100 WBC (Bld)0.1 %Normal.The [facility] Physician GroupComment on above:Performed By: #### HS TROP, PRL, CMP, CBC ####[address] Erythrocyte distribution width (RBC) [Ratio]13.3 %Sfpxxi55.0-14.8The [facility] Physician GroupComment on above:Performed By: #### HS TROP, PRL, CMP, CBC ####[address] Hematocrit (Bld) [Volume fraction]43.0 %Mhbxuw53.8-50.0The [facility] Physician GroupComment on above:Performed By: #### HS TROP, PRL, CMP, CBC ####[place] [address] USAHemoglobin (Bld) [Mass/Vol]14.6 g/kKOrxzbq05.0-17.0The [facility] Physician GroupComment on above: Performed By: #### HS TROP, PRL, CMP, CBC ####[place] [address] USALymphocytes (Bld) [#/Vol]1.4 10*3/uLNormal 1.00-4.8The [facility] Physician GroupComment on above:Performed By: #### HS TROP, PRL, CMP, CBC ####[place] [address] USALymphocytes/100 WBC (Bld)20.9 %Normal.The [facility] Comment on above:Performed By: #### HS TROP, PRL, CMP, CBC ####[place] [address] USAMCH (RBC) [Entitic mass]29.1 roGotprr98.5-35.2The [facility] Physician GroupComment on above: Performed By: #### HS TROP, PRL, CMP, CBC ####[place] [id number] USAMCV (RBC) [Entitic vol]85.8 qKTnahkq86.5-101 The [facility] Physician GroupComment on above:Performed By: #### HS TROP, PRL, CMP, CBC ####[place] [address] USAMean Corpuscular HGB Conc33.9 g/mQMbbolh05.5-35.6The [facility] Physician GroupComment on above:Performed By: #### HS TROP, PRL, CMP, CBC ####[place] [address] USAMonocytes (Bld) [#/Vol]0.6 10*3/uLNormal0.0-0.8The [facility] Physician GroupComment on above: Performed By: #### HS TROP, PRL, CMP, CBC ####[place] [address] USAMonocytes/100 WBC (Bld)8.5 %Normal.The [facility] Physician GroupComment on above:Performed By: #### HS TROP, PRL, CMP, CBC ####[place] [address] [place] Neutrophils (Bld) [#/Vol]4.7 10*3/uLNormal1.8-7.7The [facility] Comment on above:Performed By: #### HS TROP, PRL, CMP, CBC ####[place] [address] USANeutrophils/100 WBC (Bld)69.9 %Normal.The [facility] Physician GroupComment on above:Performed By: #### HS TROP, PRL, CMP, CBC ####[place] [address] USANRBC%0.1 /100{WBC}Normal0-0.5The [facility] Physician GroupComment on above:Performed By: #### HS TROP, PRL, CMP, CBC ####[place] [address] USAPlatelet mean volume (Bld) [Entitic vol]7.6 fLNormal6.6-10.1The [facility] Physician GroupComment on above:Performed By: #### HS TROP, PRL, CMP, CBC ####[address] [address] USAPlatelets (Bld) [#/Vol]216 10*3/uL Onvfdn154-084Pcx [facility] Physician GroupComment on above:Performed By: #### HS TROP, PRL, CMP, CBC ####[address] [address] USARBC (Bld) [#/Vol]5.01 10*6/uLNormal3.90-5.60The [facility] Physician GroupComment on above:Performed By: #### HS TROP, PRL, CMP, CBC ####[place] [address] USAWBC (Bld) [#/Vol]6.7 10*3/uLNormal4.1-10.5The [facility] Physician GroupComment on above:Performed By: #### HS TROP, PRL, CMP, CBC ####[place] [address] USAComprehensive Metabolic Panelon 74-03-1982Nprkvkp [Mass/Vol]3.9 g/dLNormal3.5-5.7The [facility] Comment on above:Performed By: #### HS TROP, PRL, CMP, CBC ####[place] [address] USAAlbumin/Globulin [Mass ratio]1.6 {ratio}NormalThe [facility] Physician GroupComment on above: Performed By: #### HS TROP, PRL, CMP, CBC ####[place] [address] USAALP [Catalytic activity/Vol]93 U/OJsssjf52-622 The [facility] Physician GroupComment on above:Performed By: #### HS TROP, PRL, CMP, CBC ####[place] [id number] USAALT [Catalytic activity/Vol]10 U/LNormal7-52The [facility] Comment on above:Performed By: #### HS TROP, PRL, CMP, CBC ####[place] [address] USAAnion gap [Moles/Vol] 9.7 mmol/LNormal6.0-15.0The [facility] Physician GroupComment on above:Performed By: #### HS TROP, PRL, CMP, CBC ####[place] [address] USAAST [Catalytic activity/Vol]16 U/KPhtrbz20-01Aqg [facility] Physician GroupComment on above:Performed By: #### HS TROP, PRL, CMP, CBC ####[place] [address] [place] Bilirubin [Mass/Vol]1.2 mg/dLHigh0.3-1.0The [facility] Physician GroupComment on above:Performed By: #### HS TROP, PRL, CMP, CBC ####[place] [address] USACalcium [Mass/Vol]9.4 mg/dLNormal 8.6-10.3The [facility] Physician GroupComment on above:Performed By: #### HS TROP, PRL, CMP, CBC ####[place] [address] USAChloride [Moles/Vol]105 mmol/MJcnmog88-964Wwt [facility] Physician GroupComment on above:Performed By: #### HS TROP, PRL, CMP, CBC ####[place] [address] USACO2 [Moles/Vol]31.4 mmol/LHigh21.0-31.0The [facility] Physician GroupComment on above:Performed By: #### HS TROP, PRL, CMP, CBC ####[place] [address] USACreatinine [Mass/Vol]1.10 mg/dLNormal0.70-1.30The [facility] Physician GroupComment on above:Performed By: #### HS TROP, PRL, CMP, CBC ####[address] [address] [place] [address] [place] Creatinine Clr Calc Eyyilzac89.51NormalThe [facility] Physician GroupComment on above:Performed By: #### HS TROP, PRL, CMP, CBC ####[place] [address] USAGFR/1.73 sq M.predicted MDRD (S/P/Bld) [Vol rate/Area]mL/min/{1.73_m2}NormalThe [facility] Physician GroupComment on above:Performed By: #### HS TROP, PRL, CMP, CBC ####[place] [address] USAGlobulin (S) [Mass/Vol]2.4 g/dLNormal The [facility] Physician GroupComment on above:Performed By: #### HS TROP, PRL, CMP, CBC ####[place] [address] USAGlucose [Mass/Vol]113 mg/fRUacf83-214Pgx [facility] Physician GroupComment on above:Result Comment: Random Glucose Reference Range is dependent on time and content of last meal. Glucose of more than 200 mg/dL in a nonstressed, ambulatory subject supports the diagnosis of Diabetes Mellitus. ADA recommended reference rangePerformed By: #### HS TROP, PRL, CMP, CBC ####[place] [address] USAPotassium [Moles/Vol]4.1 mmol/LNormal3.5-5.1The [facility] Physician GroupComment on above:Performed By: #### HS TROP, PRL, CMP, CBC ####[place] [id number] USAProtein [Mass/Vol]6.3 g/dLLow6.4-8.9The [facility] Physician GroupComment on above:Performed By: #### HS TROP, PRL, CMP, CBC ####[place] [id number] USASodium [Moles/Vol]142 mmol/ATcfrqb758-499Xpb [facility] Physician GroupComment on above: Performed By: #### HS TROP, PRL, CMP, CBC ####[facility] [address] [place] [address] USAUrea nitrogen [Mass/Vol]22 mg/dLNormal7-25The [facility] Physician GroupComment on above:Performed By: #### HS TROP, PRL, CMP, CBC ####[facility] [address] [place] [id number] [facility] Creatinine [Mass/volume] in Serum or PlasmaOrdered By: Chaz Frey on 98-00-5574Pqmpkicbga [Mass/Vol]Creatinine [Mass/volume] in Serum or Plasma 0.70-1.30[facility] CenterECH echo transthoracicon 70-98-2188FNC echo transthoracicNoDosher Memorial Hospital Physician GroupEosinophils Auto (Bld) [#/Vol]Ordered By: Chaz Frey on 28-83-9188Shzvtwyjjjm (Bld) [#/Vol]Automated eosinophil count0.0-0.45[facility] CenterEosinophils/100 WBC Auto (Bld)Ordered By: Chaz Frey on 17-58-0258Nhhtitvqsiw/100 WBC (Bld) Automated eosinophil %.[facility] CenterErythrocyte distribution width Auto (RBC) [Ratio]Ordered By: Chaz Frey on 34-33-8949Irbxfnknles distribution width (RBC) [Ratio]Erythrocyte distribution width [Ratio] by Automated count12.0-14.8[facility] CenterGlobulin Calc (S) [Mass/Vol]Ordered By: Chaz Frey on 71-08-6273Crtwkzka (S) [Mass/Vol]Serum globulin measurement by calculation (mass/volume)[facility] CenterGlucose [Mass/volume] in Serum or PlasmaOrdered By: Chaz Frey on 63-34-7523Umvxxez [Mass/Vol]Glucose [Mass/volume] in Serum or YmhyguRvhd97-849 [facility] CenterComment on above:ADA recommended reference rangeRandom Glucose Reference Range is dependent on time and content of last meal. Glucose of more than 200 mg/dL in a nonstressed, ambulatory subject supports the diagnosisof Diabetes Mellitus.Hematocrit Auto (Bld) [Volume fraction]Ordered By: Chaz Frey on 70-10-8060Ipsorurynu (Bld) [Volume fraction]Hematocrit [Volume Fraction] of Blood by Automated count38.8-50.0 [facility] CenterHemoglobin [Mass/volume] in BloodOrdered By: Chaz Frey on 57-43-4631Evmmozgtne (Bld) [Mass/Vol]Hemoglobin [Mass/volume] in Blood13.0-17.0[facility] CenterLeukocytes [#/volume] corrected for nucleated erythrocytes in Blood by Automated counOrdered By: Chaz Frey on 31-35-8099IWA corrected for nucl RBC Auto (Bld) [#/Vol]Leukocytes [#/volume] corrected for nucleated erythrocytes in Blood by Automated coun 4.1-10.5FSelect Medical Specialty Hospital - AkronLymphocytes Auto (Bld) [#/Vol]Ordered By: Chaz Frey on 70-67-3302Cvkmqssyhiu (Bld) [#/Vol]Lymphocytes [#/volume] in Blood by Automated count1.00-4.8[facility] Lymphocytes/100 WBC Auto (Bld)Ordered By: Chaz Frey on 11-18-2024 Lymphocytes/100 WBC (Bld)Lymphocytes/100 leukocytes in Blood by Automated count. [facility] CenterMCH Auto (RBC) [Entitic mass]Ordered By: Chaz Frye on 38-46-6217AXX (RBC) [Entitic mass]MCH [Entitic mass] by Automated count27.5-35.2FSelect Medical Specialty Hospital - AkronMCHC Auto (RBC) [Mass/Vol]Ordered By: Chaz Frey on 64-48-5410AYSL (RBC) [Mass/Vol]MCHC [Mass/volume] by Automated count32.5-35.6FSelect Medical Specialty Hospital - AkronMCV Auto (RBC) [Entitic vol]Ordered By: Chaz Frey on 80-14-0278ZIQ (RBC) [Entitic vol]MCV [Entitic volume] by Automated count83.5-101[facility] CenterMonocytes Auto (Bld) [#/Vol]Ordered By: Chaz Frey on 73-05-5000Kmplllgcr (Bld) [#/Vol] Automated blood monocyte count0.0-0.8[facility] Monocytes/100 WBC Auto (Bld)Ordered By: Chaz Frey on 92-60-6460Onpzmyfje/100 WBC (Bld)Automated monocyte %.[facility] CenterNeutrophils Auto (Bld) [#/Vol]Ordered By: Chaz Frey on 01-35-2309Xcmzqfgzpxf (Bld) [#/Vol] Neutrophils [#/volume] in Blood by Automated count1.8-7.7FSelect Medical Specialty Hospital - AkronNeutrophils/100 WBC Auto (Bld)Ordered By: Chaz Frey on 49-45-6957Rsdxtefwhfp/100 WBC (Bld)Automated neutrophil %.[facility] CenterNo Panel InformationOrdered By: Chaz Frey on 11-18-2024 Estimated GFR (CKD-EPI)> 60.0 mL/MinAshtabula County Medical CenterPharmacy Creatinine Clearance (Chem72.51[facility] CenterNucleated erythrocytes [Presence] in Blood by Automated countOrdered By: Chaz Frey on 85-34-2508Ybwyjvqfm RBC Auto Ql (Bld)Nucleated erythrocytes [Presence] in Blood by Automated count0-0.5FSelect Medical Specialty Hospital - AkronPlatelet mean volume Auto (Bld) [Entitic vol]Ordered By: Chaz Frey on 26-21-3749Uwllinkk mean volume (Bld) [Entitic vol]Platelet mean volume [Entitic volume] in Blood by Automated count6.6-10.1FSelect Medical Specialty Hospital - AkronPlatelets Auto (Bld) [#/Vol]Ordered By: Chaz Frey on 36-10-6094Mymkqguvk (Bld) [#/Vol]Platelets [#/volume] in Blood by Automated ysiyr621-827FnestblbjAshtabula County Medical Center Potassium [Moles/volume] in Serum or PlasmaOrdered By: Chaz Frey on 20-89-0736Anuoevray [Moles/Vol]Potassium [Moles/volume] in Serum or Plasma 3.5-5.1FSelect Medical Specialty Hospital - AkronProlactinon 82-86-7413Rveuhropm44.14 ng/mLHigh2.64-13.13The [facility] Physician GroupComment on above:Result Comment: PERFORMED BY:[place] [address] [address] [place], [place] [phone] MEDICAL DIRECTORVÍCTOR LUCERO M.D. Performed By: #### HS TROP, PRL, CMP, CBC ####[facility] [address] [place] [address] USAProlactin [Mass/volume] in Serum or Plasma Ordered By: Chaz Frey on 67-82-7129Xcutxrrbn [Mass/Vol]Prolactin [Mass/volume] in Serum or PlasmaHigh2.64-13.13[facility] Protein [Mass/volume] in Serum or PlasmaOrdered By: Chaz Frey on 11-18-2024 Protein [Mass/Vol]Protein [Mass/volume] in Serum or PlasmaLow6.4-8.9[facility] Medical CenterRBC Auto (Bld) [#/Vol]Ordered By: Chaz Frey on 52-68-2834YSV (Bld) [#/Vol]Erythrocytes [#/volume] in Blood by Automated count 3.90-5.60Protestant Hospitalerum or plasma albumin/globulin mass ratioOrdered By: Chaz Frey on 85-41-1557Nkhtbpx/Globulin [Mass ratio]Serum or plasma albumin/globulin mass ratioProtestant Hospitalerum or plasma anion gap determinationOrdered By: Chaz Frey on 80-53-1445Pfhms gap [Moles/Vol]Serum or plasma anion gap determination6.0-15.0Protestant Hospitalodium [Moles/volume] in Serum or PlasmaOrdered By: Chaz Frey on 00-72-5388Nzjtph [Moles/Vol]Sodium [Moles/volume] in Serum or Rdbybo358-982 [facility] CenterTroponin I High Sensitivityon 11-18-2024 Troponin I High Tpwvarsezjt66.6 pg/mLHigh0.0-20.0[facility] Comment on above:Result Comment: PERFORMED BY:[place] [address] [place], [place] [phone] MEDICAL DIRECTORVÍCTOR LUCERO M.D.Performed By: #### HS TROP, PRL, CMP, CBC ####[facility] [address] Troponin I.cardiac [Mass/volume] in Serum or Plasma by Detection limit <= 0.01 ng/Ordered By: Chaz Frey on 83-25-2381Ewlyxnze I.cardiac DL <= 0.01 ng/mL [Mass/Vol]Troponin I.cardiac [Mass/volume] in Serum or Plasma by Detection limit <= 0.01 ng/High0.0-20.0[facility] Medical CenterUrea nitrogen [Mass/volume] in Serum or PlasmaOrdered By: Chaz Frey on 33-87-3048Jttg nitrogen [Mass/Vol]Urea nitrogen [Mass/volume] in Serum or Plasma7-25[facility] Medical CenterWBC Auto (Bld) [#/Vol]Ordered By: Chaz Frey on 66-17-9497PPB (Bld) [#/Vol]Leukocytes [#/volume] in Blood by Automated count 4.1-10.5FSelect Medical Specialty Hospital - AkronAmphetamine Screen Ql (U)Ordered By: Jamin Sepulveda on 87-41-2856Kxexnwtomesz Ql (U)Amphetamines screenHighNegative [facility] CenterAmphetamine cutoff [Mass/volume] in Urine for Confirmatory methodOrdered By: Chaz Frey on 69-52-4705Xkahoiacqmc cutoff Confirm (U) [Mass/Vol]Amphetamine cutoff [Mass/volume] in Urine for Confirmatory ntxudfQcpqgp=706EgqzdilghAshtabula County Medical CenterAmphetamine+Methamphetamine [Presence] in UrineOrdered By: Chaz Frey on 11-17-2024 Amphetamine+Methamphetamine Ql (U)Amphetamine+Methamphetamine [Presence] in KzojlYaacjgaaQqnqcr=6831Bteuboycy Regional Medical CenterComment on above: Amphetamine test includes Amphetamine and Methamphetamine.Amphetamines [Presence] in UrineOrdered By: Chza Frey on 07-64-7541Uqaacipvnqwo Ql (U) Amphetamines [Presence] in UrineAbnormal.[facility] Amphetamines [Presence] in Urine by Screen methodOrdered By: Chaz Frey on 30-75-2666Ibewpgywlhux Screen Ql (U)Amphetamines [Presence] in Urine by Screen ikfromQmbywo=6794AafsvmduqAshtabula County Medical CenterComment on above:Amphetamine test includes Amphetamine and Methamphetamine.Appearance of UrineOrdered By: Jamin Sepulveda on 61-47-0802Ercjkibyml (U)Urine appearanceCleLancaster Municipal HospitalBacteria [Presence] in Urine by AutomatedOrdered By: Jamin Sepulveda on 55-25-6184Kdoqzhid Auto Ql (U)Bacteria [Presence] in Urine by AutomatedNone SeenAshtabula County Medical CenterBarbiturates [Presence] in Urine by Screen methodOrdered By: Jamin Sepulveda on 03-62-1597Mpbmmevodfou Screen Ql (U) Barbiturates [Presence] in Urine by Screen izvjneYvnlhn=965Gapgelyqf[address] [place], [place] [address]Benzodiazepines Screen Ql (U)Ordered By: Jamin Sepulveda on 79-61-5397Avvecefisvyycdz Ql (U)Benzodiazepines [Presence] in Urine by Screen methodHighNegWilson Memorial HospitalBenzodiazepines [Presence] in UrineOrdered By: Chaz Frey on 74-64-5778Jqjrmunyzzbyoit Ql (U) Benzodiazepines [Presence] in TgztuPgnorf=295Elaoyswre[address] [place] [address] Benzoylecgonine [Presence] in Urine by Screen methodOrdered By: Jamin Sepulveda on 04-20-0148Ikkeqfuowjexffi Screen Ql (U)Benzoylecgonine [Presence] in Urine by Screen methodNegWilson Memorial HospitalBilirubin Test strip Ql (U)Ordered By: Jamin Sepulveda on 10-08-5260Msxedhvxo Ql (U)Bilirubin.total [Presence] in Urine by Test stripNegWilson Memorial HospitalCT angio neckon 81-25-1445XE angio neckNoDosher Memorial Hospital Physician GroupCT head stroke alert wo conon 59-93-1767QT head stroke alert wo conNAtrium Health Pine[facility] Physician GroupCannabinoids [Mass/volume] in Urine by Confirmatory methodOrdered By: Chaz Frey on 81-19-3749Ebwleaabxffm Confirm (U) [Mass/Vol]Cannabinoids [Mass/volume] in Urine by Confirmatory methodCutoff=[address] [place], [place] [address]Cannabinoids [Presence] in Urine by Screen methodOrdered By: Jamin Sepulveda on 06-92-8391Wqnjwjnuifwt Screen Ql (U)Cannabinoids [Presence] in Urine by Screen methodCutoff=50[facility] Medical CenterComment on above:These are unconfirmed results and should not be used for legal purposes. Drug Cut-Off Concentration: AMPH 1000 ng/mL BHASKAR 200 ng/mL RIKKI 200 ng/mL COCM 300 ng/mL OP 300 ng/mL PCP 25 ng/mL THC 20 ng/mLColor Auto (U)Ordered By: Jamin Sepulveda on 21-71-0025Cvgic (U)Color of Urine by AutoYellowAshtabula County Medical Center Complete Blood Count Auto Diffon 80-12-7850Omxjsocga (Bld) [#/Vol]0.0 10*3/uL Normal0.0-0.2The [facility] Physician GroupComment on above:Result Comment: PERFORMED BY:[address] [place], [place] [phone] MEDICAL DIRECTORVÍCTOR LUCERO M.D. Performed By: #### PTT, CMP, PT, CBC, CK, PRL, HS TROP ####[place] [id number] USABasophils/100 WBC (Bld)0.4 % Normal.The [facility] Physician GroupComment on above:Performed By: #### PTT, CMP, PT, CBC, CK, PRL, HS TROP ####[place] [id number] USAEosinophils (Bld) [#/Vol]0.0 10*3/uLNormal0.0-0.45 The [facility] Physician GroupComment on above:Performed By: #### PTT, CMP, PT, CBC, CK, PRL, HS TROP ####[place] [address] USAEosinophils/100 WBC (Bld)0.1 %Normal.The [facility] Physician GroupComment on above:Performed By: #### PTT, CMP, PT, CBC, CK, PRL, HS TROP ####[address] Erythrocyte distribution width (RBC) [Ratio]13.6 %Ljuwjt90.0-14.8The [facility] Hospital Physician GroupComment on above:Performed By: #### PTT, CMP, PT, CBC, CK, PRL, HS TROP ####[address] Hematocrit (Bld) [Volume fraction]46.4 %Xgoefp28.8-50.0The [facility] Physician GroupComment on above:Performed By: #### PTT, CMP, PT, CBC, CK, PRL, HS TROP ####[address] Hemoglobin (Bld) [Mass/Vol]15.6 g/wVVomjvn63.0-17.0The [facility] Comment on above:Performed By: #### PTT, CMP, PT, CBC, CK, PRL, HS TROP ####[address] Lymphocytes (Bld) [#/Vol]0.4 10*3/uLLow1.00-4.8The [facility] Comment on above:Performed By: #### PTT, CMP, PT, CBC, CK, PRL, HS TROP ####[address] Lymphocytes/100 WBC (Bld)4.4 %Normal.The [facility] Physician GroupComment on above:Performed By: #### PTT, CMP, PT, CBC, CK, PRL, HS TROP ####[address] StreetMCH (RBC) [Entitic mass]28.8 hgVvkgav50.5-35.2The [facility] Physician GroupComment on above: Performed By: #### PTT, CMP, PT, CBC, CK, PRL, HS TROP ####[address]MCV (RBC) [Entitic vol]85.6 fL Wrsrbh09.5-101The [facility] Physician GroupComment on above:Performed By: #### PTT, CMP, PT, CBC, CK, PRL, HS TROP ####[place] [address] USAMean Corpuscular HGB Conc33.6 g/nSMtsdos39.5-35.6The [facility] Physician GroupComment on above:Performed By: #### PTT, CMP, PT, CBC, CK, PRL, HS TROP ####[place] [address] USAMonocytes (Bld) [#/Vol]0.3 10*3/uLNormal0.0-0.8The [facility] Physician GroupComment on above:Performed By: #### PTT, CMP, PT, CBC, CK, PRL, HS TROP ####[place] [address] [place] Monocytes/100 WBC (Bld)15.39 %Normal0.00-20.00The [facility] Comment on above:Performed By: #### PTT, CMP, PT, CBC, CK, PRL, HS TROP ####[place] [address] [place] Monocytes/100 WBC (Bld)3.3 %Normal.The [facility] Physician GroupComment on above:Performed By: #### PTT, CMP, PT, CBC, CK, PRL, HS TROP ####[place] [address] USANeutrophils (Bld) [#/Vol]9.2 10*3/uLHigh1.8-7.7The [facility] Physician GroupComment on above: Performed By: #### PTT, CMP, PT, CBC, CK, PRL, HS TROP ####[place] [address] USANeutrophils/100 WBC (Bld)91.8 % Normal.The [facility] Physician GroupComment on above:Performed By: #### PTT, CMP, PT, CBC, CK, PRL, HS TROP ####[place] [address] USANRBC%0.1 /100{WBC}Normal0-0.5The [facility] Physician GroupComment on above:Performed By: #### PTT, CMP, PT, CBC, CK, PRL, HS TROP ####[place] [address] USAPlatelet mean volume (Bld) [Entitic vol]7.3 fLNormal6.6-10.1The [facility] Physician GroupComment on above:Performed By: #### PTT, CMP, PT, CBC, CK, PRL, HS TROP ####[place] [address] [place] Platelets (Bld) [#/Vol]280 10*3/rAVicimh390-516Ugm [facility] Comment on above:Performed By: #### PTT, CMP, PT, CBC, CK, PRL, HS TROP ####[place] [address] USARBC (Bld) [#/Vol]5.42 10*6/uLNormal3.90-5.60The [facility] Physician GroupComment on above:Performed By: #### PTT, CMP, PT, CBC, CK, PRL, HS TROP ####[place] [address] USAWBC (Bld) [#/Vol]10.1 10*3/uLNormal4.1-10.5The [facility] Physician GroupComment on above:Performed By: #### PTT, CMP, PT, CBC, CK, PRL, HS TROP ####[place] [address] USAComprehensive Metabolic Panelon 11-17-2024 Albumin [Mass/Vol]4.2 g/dLNormal3.5-5.7The [facility] Physician GroupComment on above:Performed By: #### PTT, CMP, PT, CBC, CK, PRL, HS TROP ####[address] [place] [address] USAAlbumin/Globulin [Mass ratio]1.7 {ratio}NormalThe [facility] Physician GroupComment on above:Performed By: #### PTT, CMP, PT, CBC, CK, PRL, HS TROP ####[place] [address] USAALP [Catalytic activity/Vol]95 U/L Sxrsuk85-987Tzd [facility] Physician GroupComment on above:Performed By: #### PTT, CMP, PT, CBC, CK, PRL, HS TROP ####[place] [address] USAALT [Catalytic activity/Vol]12 U/LNormal7-52The [facility] Physician GroupComment on above:Performed By: #### PTT, CMP, PT, CBC, CK, PRL, HS TROP ####[place] [address] USAAnion gap [Moles/Vol]13.0 mmol/LNormal6.0-15.0The [facility] Physician GroupComment on above:Performed By: #### PTT, CMP, PT, CBC, CK, PRL, HS TROP ####[place] [address] USAAST [Catalytic activity/Vol]24 U/BEyxtmp57-43Mmd [facility] Physician GroupComment on above:Performed By: #### PTT, CMP, PT, CBC, CK, PRL, HS TROP ####[place] [address] USABilirubin [Mass/Vol] 0.6 mg/dLNormal0.3-1.0The [facility] Physician GroupComment on above:Performed By: #### PTT, CMP, PT, CBC, CK, PRL, HS TROP ####[place] [address] USACalcium [Mass/Vol]9.1 mg/dLNormal 8.6-10.3The [facility] Physician GroupComment on above:Performed By: #### PTT, CMP, PT, CBC, CK, PRL, HS TROP ####[place] [address] [place] [id number] USAChloride [Moles/Vol]104 mmol/IDhelfg36-867Qrm [facility] Physician GroupComment on above:Performed By: #### PTT, CMP, PT, CBC, CK, PRL, HS TROP ####[place] [address] [place] [id number] USACO2 [Moles/Vol]29.2 mmol/YTjwpwo85.0-31.0The [facility] Comment on above:Performed By: #### PTT, CMP, PT, CBC, CK, PRL, HS TROP ####[place] [address] [place] [address] [place] Creatinine [Mass/Vol]1.27 mg/dLNormal0.70-1.30The [facility] Physician [facility] Comment on above:Performed By: #### PTT, CMP, PT, CBC, CK, PRL, HS TROP ####[place] [id number] USAGFR/1.73 sq M.predicted MDRD (S/P/Bld) [Vol rate/Area]mL/min/{1.73_m2}NormalThe [facility] Physician GroupComment on above:Performed By: #### PTT, CMP, PT, CBC, CK, PRL, HS TROP ####[place] [address] USAGlobulin (S) [Mass/Vol]2.5 g/dLNormalThe [facility] Physician [facility] Comment on above:Performed By: #### PTT, CMP, PT, CBC, CK, PRL, HS TROP ####[place] [address] USAGlucose [Mass/Vol]163 mg/uQIkfi96-311Jcd [facility] Physician GroupComment on above: Result Comment: Random Glucose Reference Range is dependent on time and content of last meal. Glucose of more than 200 mg/dL in a nonstressed, ambulatory subject supports the diagnosis of Diabetes Mellitus. ADA recommended reference rangePerformed By: #### PTT, CMP, PT, CBC, CK, PRL, HS TROP ####[place] [address] [place] [address] USAPotassium [Moles/Vol] 4.2 mmol/LNormal3.5-5.1The [facility] Physician GroupComment on above:Performed By: #### PTT, CMP, PT, CBC, CK, PRL, HS TROP ####[place] [address] [place] [address] USAProtein [Mass/Vol]6.7 g/dLNormal6.4-8.9 The [facility] Physician GroupComment on above:Performed By: #### PTT, CMP, PT, CBC, CK, PRL, HS TROP ####[place] [address] [place] [address] USASodium [Moles/Vol]142 mmol/WCbnpfj937-508Nxe [facility] Physician GroupComment on above:Performed By: #### PTT, CMP, PT, CBC, CK, PRL, HS TROP ####[place] [address] USAUrea nitrogen [Mass/Vol]16 mg/dLNormal7-25The [facility] Comment on above:Performed By: #### PTT, CMP, PT, CBC, CK, PRL, HS TROP ####[place] [address] USACreatine Kinaseon 17-56-2441JZ [Catalytic activity/Vol]134 U/IUsldvs20-265Tke [facility] Physician GroupComment on above:Performed By: #### PTT, CMP, PT, CBC, CK, PRL, HS TROP ####[place] [address] [place] Creatine kinase [Enzymatic activity/volume] in Serum or PlasmaOrdered By: Jamin Sepulveda on 90-53-6789HY [Catalytic activity/Vol]Creatine kinase [Enzymatic activity/volume] in Serum or Xbehod84-193TwygcdclaAshtabula County Medical Center Dipstick and Microscopicon 75-59-1942Rhqjzekhmq (U)ClearNormalClearThe [facility] Physician GroupComment on above:Order Comment: Name Collection Type:: Clean- Voided MidstreamPerformed By: #### URDS, ADDONUAPLUS ####[address] [place] [address] USABacteria,UrineNone SeenNormal None SeenAdventhealth Tampa Physician GroupComment on above:Order Comment: Name Collection Type:: Clean-Voided MidstreamPerformed By: #### URDS, ADDONUAPLUS ####[address] [address] [place] Bilirubin,UrineNegativeNormalNegativeAdventhealth Tampa Physician GroupComment on above:Order Comment: Name Collection Type:: Clean-Voided MidstreamPerformed By: #### URDS, ADDONUAPLUS ####[address] [address] USAColor (U)YellowNormalYellowAdventhealth Tampa Physician GroupComment on above:Order Comment: Name Collection Type:: Clean-Voided MidstreamPerformed By: #### URDS, ADDONUAPLUS ####[address] [address] USAGlucose Ql (U)70 mg/dLHighNormNicklaus Children's Hospital at St. [facility] Physician GroupComment on above:Order Comment: Name Collection Type:: Clean-Voided MidstreamPerformed By: #### URDS, ADDONUAPLUS ####[address] [address] USAHyaline Casts,Urine NoneNormal0-8The [facility] Physician GroupComment on above:Order Comment: Name Collection Type:: Clean-Voided MidstreamPerformed By: #### URDS, ADDONUAPLUS ####[address] [place] [address] USAKetones Ql (U)NegativeNormalNegativeAdventhealth Tampa Physician GroupComment on above:Order Comment: Name Collection Type:: Clean-Voided MidstreamPerformed By: #### URDS, ADDONUAPLUS ####[address] [address] USALeukocyte esterase Test strip Ql (U)NegativeNormalNegativeAdventhealth Tampa Physician GroupComment on above:Order Comment: Name Collection Type:: Clean- Voided MidstreamPerformed By: #### URDS, ADDONUAPLUS ####[address] [address] USAMucus,UrineRareNormalThe [facility] Physician GroupComment on above:Order Comment: Name Collection Type:: Clean-Voided MidstreamResult Comment: PERFORMED BY:[address] [place], [place] [phone] MEDICAL DIRECTORVÍCTOR LUCERO M.D.Performed By: #### URDS, ADDONUAPLUS ####[address] [address] [place] Nitrite,UrineNegativeNormalNegativeThe [facility] Physician GroupComment on above:Order Comment: Name Collection Type:: Clean-Voided MidstreamPerformed By: #### URDS, ADDONUAPLUS ####[address] [address] USAOccult Blood,UrineNegativeNormalNegativeThe [facility] Physician GroupComment on above:Order Comment: Name Collection Type:: Clean-Voided MidstreamPerformed By: #### URDS, ADDONUAPLUS ####[address] [address] USApH (U)6.5 [pH]Normal 5.0-9.0The [facility] Physician GroupComment on above:Order Comment: Name Collection Type:: Clean-Voided MidstreamPerformed By: #### URDS, ADDONUAPLUS ####[address] [address] USAProtein (U) [Mass/Vol]70 mg/dLHighNegativeThe [facility] Physician GroupComment on above:Order Comment: Name Collection Type:: Clean-Voided MidstreamPerformed By: #### URDS, ADDONUAPLUS ####[address] [address] USARBC,Urine3 [HPF]Normal0-4The [facility] Physician GroupComment on above:Order Comment: Name Collection Type:: Clean-Voided MidstreamPerformed By: #### URDS, ADDONUAPLUS ####[address] [address] USASpecificy [place],Urine>1.050High 1.001-1.030The [facility] Physician GroupComment on above:Order Comment: Name Collection Type:: Clean-Voided MidstreamResult Comment: Rechecked by refractometerPerformed By: #### URDS, ADDONUAPLUS ####[address] [address] USASquamous Epithelial Cell,Urine1 [HPF] Normal0-2The [facility] Physician GroupComment on above:Order Comment: Name Collection Type:: Clean-Voided MidstreamPerformed By: #### URDS, ADDONUAPLUS ####[address] [address] [place] Urobilinogen,UrineNormalNormalNormalThe [facility] Physician GroupComment on above:Order Comment: Name Collection Type:: Clean-Voided MidstreamPerformed By: #### URDS, ADDONUAPLUS ####[address] [address] USAWBC,Urine1 [HPF]Normal0-4The [facility] Physician GroupComment on above:Order Comment: Name Collection Type:: Clean-Voided MidstreamPerformed By: #### URDS, ADDONUAPLUS ####[address] [address] USADrug Screen,Urineon 11-17-2024 Amphetamine Screen,UrinePositiveHighNegativeThe [facility] Physician GroupComment on above:Performed By: #### URDS, ADDONUAPLUS ####[address] [address] USABarbiturate Screen,UrineNegativeNormal NegativeThe [facility] Physician GroupComment on above:Performed By: #### URDS, ADDONUAPLUS ####[address] [address] USABenzodiazepines Screen,UrinePositiveHighNegativeThe [facility] Physician GroupComment on above:Performed By: #### ОЛЬГА, ADDONUAPLUS ####[address] [address] USACannabinoid Screen,UrinePositiveHighNegativeAdventhealth Tampa Physician [facility]Comment on above: Result Comment: These are unconfirmed results and should not be used for legal purposes. Drug Cut-Off Concentration: AMPH 1000 ng/mL BHASKAR 200 ng/mL RIKKI 200 ng/mL COCM 300 ng/mL OP 300 ng/mL PCP 25 ng/mL THC 20 ng/mLPERFORMED BY:[address] [place], [place] [phone] MEDICAL DIRECTORVÍCTOR LUCERO M.D.Performed By: #### ОЛЬГА, ADDONUAPLUS ####[place] [id number] USACocaine Screen,UrineNegativeNormalNegativeThe [facility] Physician [facility] WesleyComment on above:Performed By: #### ОЛЬГА, ADDONUAPLUS ####[address] [address] USAOpiate Screen,Urine NegativeNormalNegativeThe [facility] Hershey Medical CenterComment on above:Performed By: #### ОЛЬГА, ADDONUAPLUS ####[address] [address] USAPhencyclidine Screen,UrineNegativeNormalNegativeThe [facility] Hers[facility] Medical CenterComment on above:Performed By: #### ОЛЬГА, ADDONUAPLUS ####[address] [address] USAECG 12 lead ECGon 18-01-2621ENP 12 lead ECGNormalThe [facility] Physician [facility] Epithelial cells.squamous [#/area] in Urine sediment by Automated countOrdered By: Jamin Sepulveda on 91-43-3692Paltctjeoe cells.squamous Auto (Urine sed) [#/Area]Epithelial cells.squamous [#/area] in Urine sediment by Automated count 0-2FSelect Medical Specialty Hospital - AkronErythrocyte Sedimentation Rateon 11-17-2024 ESR (Bld) [Velocity]2 mm/hNormal0-19The [facility] Physician GroupComment on above:Result Comment: PERFORMED BY:[place] [address] [address] [place], [place] [phone] MEDICAL DIRECTORVÍCTOR ARSHAD M.D.Performed By: #### B12, ESR, HS TROP ####[address] [address] USAErythrocyte sedimentation rate by Photometric methodOrdered By: Chaz Frey on 90-55-0853LDO Photometric method (Bld) [Velocity]Erythrocyte sedimentation rate by Photometric method0 [facility] CenterErythrocytes [#/area] in Urine sediment by Automated countOrdered By: Jamin Sepulveda on 93-87-0531NPP Auto (Urine sed) [#/Area]Erythrocytes [#/area] in Urine sediment by Automated count0Select [facility] Hospital - AkronEthanol [Mass/volume] in Serum or PlasmaOrdered By: Jamin Sepulveda on 58-29-8192Dsizknn [Mass/Vol]Ethanol [Mass/volume] in Serum or PlasmaAshtabula County Medical CenterComment on above:Test not performedEthyl Alcohol Profileon 68-37-5866Kimhkzw [Mass/Vol]mg/dLNoDosher Memorial Hospital Physician GroupComment on above:Performed By: #### ETOH ####[address] [address] USAPercent EthanolNot performedNoDosher Memorial Hospital Physician GroupComment on above:Result Comment: PERFORMED BY:[place] [address] [place], [place] [phone] MEDICAL DIRECTORVÍCTOR LUCERO M.D.Performed By: #### ETOH ####[address] [address] USAGlucose Glucometer (BldC) [Mass/Vol]Ordered By: Jamin Sepulveda on 10-66-1884Seuloyi [Mass/Vol]Capillary blood glucose measurement by glucometer (mass/volume) [facility] CenterComment on above:Random Glucose Reference Range is dependent on time and content of last meal. Glucose of more than 200 mg/dL in a nonstressed, ambulatory subject supports the diagnosis of Diabetes Mellitus.Glucose Poct Glucometerson 36-49-1000Cqaqoax [Mass/Vol]175 mg/dLNormal The [facility] Physician GroupComment on above:Result Comment: Random Glucose Reference Range is dependent on time and content of last meal. Glucose of more than 200 mg/dL in a nonstressed, ambulatory subject supports the diagnosis of Diabetes Mellitus.PERFORMED BY:[place] [address] [place], [place] [phone] MEDICAL DIRECTORVÍCTOR ARSHAD M.D.Performed By: #### GLULS ####Point of Care testing,Glucose [Mass/volume] in Urine by Test stripOrdered By: Jamin Sepulveda on 11-17-2024 Glucose Test strip (U) [Mass/Vol]Glucose [Mass/volume] in Urine by Test strip [facility]Bl[facility] HospitalHemoglobin Test strip Ql (U)Ordered By: Jamin Sepulveda on 19-69-2166Yxcqbtwisl Ql (U)Hemoglobin [Presence] in Urine by Test stripNegWilson Memorial HospitalHyaline casts [#/area] in Urine sediment by Automated countOrdered By: Jamin Sepulveda on 27-16-0569Edkatjz casts Auto (Urine sed) [#/Area]Hyaline casts [#/area] in Urine sediment by Automated count0-8[facility] CenterINR in Platelet poor plasma by Coagulation assayOrdered By: Jamin Sepulveda on 48-82-8783GMF Coag (PPP) [Relative time]INR in Platelet poor plasma by Coagulation assayAshtabula County Medical CenterComment on above:INR Therapeutic Range A) [...] strip Ql (U)Ordered By: Jamin Sepulveda on 07-72-6318Hulzrkp Ql (U)Ketones [Presence] in Urine by Test stripNegativeAshtabula County Medical CenterLeukocyte esterase [Presence] in Urine by Test stripOrdered By: Jamin Sepulveda on 16-73-8030Qwunwxbip esterase Test strip Ql (U)Leukocyte esterase [Presence] in Urine by Test stripNegative [facility] CenterLeukocytes [#/area] in Urine sediment by Automated countOrdered By: Jamin Sepulveda on 80-67-5103ASI Auto (Urine sed) [#/Area]Leukocytes [#/area] in Urine sediment by Automated count0-4FSelect Medical Specialty Hospital - AkronMagnesiumon 46-35-4217Gyltnrsjk [Mass/Vol]1.9 mg/dLNormal 1.9-2.7The [facility] Physician GroupComment on above:Order Comment: Comment add onResult Comment: PERFORMED BY:[facility] [place] [address] [place], [place] [phone] MEDICAL DIRECTORVÍCTOR ARSHAD M.D.Performed By: #### MG ####[address] [address] USAMagnesium [Mass/volume] in Serum or PlasmaOrdered By: Chaz Palafox on 31-13-8233Igxtmkqix [Mass/Vol]Magnesium [Mass/volume] in Serum or Plasma1.9-2.7FSelect Medical Specialty Hospital - AkronMethamphetamine [Presence] in UrineOrdered By: Chaz Frey on 94-44-6689Fknqwmqsztswkcw Ql (U) Methamphetamine [Presence] in UrineAbnormal.[facility] Methamphetamine cutoff [Mass/volume] in Urine for Confirmatory methodOrdered By: Chaz Frey on 53-98-9817Ojavlzhnkxauomq cutoff Confirm (U) [Mass/Vol] Methamphetamine cutoff [Mass/volume] in Urine for Confirmatory tdezezDqyijn=373 [facility] CenterMonocyte distribution width [Entitic volume] in Blood by AutomatedOrdered By: Jamin Sepulveda on 93-35-2139Nvexkwhp distribution width Auto (Bld) [Entitic vol]Monocyte distribution width [Entitic volume] in Blood by Automated0.00-20.00[facility] Medical CenterMucus [Presence] in Urine by AutomatedOrdered By: Jamin Sepulveda on 90-70-1664Ofibl Auto Ql (U)Mucus [Presence] in Urine by AutomatedAshtabula County Medical CenterNitrite Test strip Ql (U)Ordered By: Jamin Sepulveda on 82-01-8281Fhugaci Ql (U)Nitrite [Presence] in Urine by Test stripNegWilson Memorial Hospital Opiates [Presence] in UrineOrdered By: Chaz Frey on 39-36-7755Jwqcadv Ql (U) Opiates [Presence] in KdwprBxfcyw=190OnenefmupAshtabula County Medical CenterComment on above:Opiate test includes Codeine and Morphine only.Opiates [Presence] in Urine by Screen methodOrdered By: Jamin Sepulveda on 52-30-7356Jmbeavr Screen Ql (U)Opiates [Presence] in Urine by Screen methodNegWilson Memorial HospitalPartial Thromboplastin Timeon 00-16-2474yOSH Coag (Bld) [Time]22.3 sLow25.1-36.5The [facility] Physician GroupComment on above:Result Comment: A hematocrit value greater than 55% may lead to inaccurate results in coagulation testing. Patients having hematocrit values >55% require a special collection tube for coagulation studies. Please contact the laboratory at [phone] for redraw instructions.PERFORMED BY:[place] [address] [place], [place] [phone] MEDICAL DIRECTORVÍCTOR ARSHAD M.D.Performed By: #### PTT, CMP, PT, CBC, CK, PRL, HS TROP ####[address] [address] [facility] Phencyclidine Screen Ql (U)Ordered By: Jamin Sepulveda on 39-70-9249Trapedexjqvub Ql (U)Phencyclidine [Presence] in Urine by Screen methodNegWilson Memorial HospitalPhencyclidine [Presence] in UrineOrdered By: Chaz Frey on 08-67-3746Wvwzajhhbpzqu Ql (U)Phencyclidine [Presence] in Urine Cutoff=25As[facility] County Medical CenterComment on above:Performed at: - [facility] [address] [place], [place] [address]Vzl Director: Adenike Panchal PhD, Phone: [phone] 72-41-5290Kodgdlsms18.22 ng/mLHigh 2.64-13.13The [facility] Physician [facility] WesleyComment on above:Result Comment: PERFORMED BY:[address] [place], [place] [phone] MEDICAL DIRECTORVÍCTOR LUCERO M.D. Performed By: #### PTT, CMP, PT, CBC, CK, PRL, HS TROP ####[address] [address] [place] [address] USAProtein Test strip (U) [Mass/Vol]Ordered By: Jamin Sepulveda on 43-66-4599Fysmpbm (U) [Mass/Vol]Protein [Mass/volume] in Urine by Test stripHighNegativeAshtabula County Medical CenterProthrombin Time INRon 54-31-6751QZT Coag (PPP) [Relative time]1.0 {INR} NormalThe [facility] Physician [facility] WesleyComment on above:Result Comment: INR Therapeutic Range A) [...] CMP, PT, CBC, CK, PRL, HS TROP ####[address] [address] [place]APT Coag (PPP) [Time]11.9 s Normal9.0-12.9The [facility] Hospital Physician GroupComment on above:Result Comment: A hematocrit value greater than 55% may lead to inaccurate results in coagulation testing. Patients having hematocrit values >55% require a special collection tube for coagulation studies. Please contact the laboratory at [phone] for redraw instructions.Performed By: #### PTT, CMP, PT, CBC, CK, PRL, HS TROP ####[address] [place] [address] [facility] Prothrombin time (PT)Ordered By: Jamin Sepulveda on 81-58-4920WA Coag (PPP) [Time] Prothrombin time (PT)9.0-12.9[facility] County Medical CenterComment on above:A hematocrit value greater than 55% may lead to inaccurate results in coagulation testing. Patientshaving hematocrit values >55% require a special collection tube for coagulation studies. Please contact the laboratory at [phone] for redraw instructions.Specific gravity of Urine by RefractometryOrdered By: Jamin Sepulveda on 25-04-0371Wkjdrkkn gravity Refractometry (U) [Rel density] Specific gravity of Urine by RefractometryHigh1.001-1.030As[facility] County Medical CenterComment on above:Rechecked by refractometerTroponin I High Sensitivityon 96-30-0194Maacxqmb I High Rglyejpmhpm12.7 pg/mLHigh0.0-20.0The [facility] Physician GroupComment on above:Result Comment: PERFORMED BY:[address] [place], [place] [phone] MEDICAL DIRECTORVÍCTOR LUCERO M.D.Performed By: #### B12, ESR, HS TROP ####[place] [address] [place] [id number] [facility] Troponin I High Yhwxmmiasle78.1 pg/mLHigh0.0-20.0The [facility] Physician Group Comment on above:Result Comment: PERFORMED BY:[address] [place], [place] [phone] MEDICAL DIRECTORVÍCTOR JONESPAVITHRA RichPerformed By: #### PTT, CMP, PT, CBC, CK, PRL, HS TROP ####[facility] [id number] [facility] MEDICAL CENTERUrine Drug Screen w/Confirmon 70-25-1400Kqsxmugqhneh GC/MS Confirm, Ur 527 ng/kYRhwratIlofne=235Luk [facility] Physician GroupComment on above:Performed By: #### UDS SCRN wRFX ####[facility] ,Amphetamines, UrSee Final NihizmlMtjeymQsnict=1774Lat [facility] Physician GroupComment on above:Result Comment: Amphetamine test includes Amphetamine and Methamphetamine.Performed By: #### UDS SCRN wRFX ####[facility] ,Amphetamines, UrPositiveCritically abnormal.The [facility] Hospital Physician GroupComment on above:Result Comment: Amphetamine test includes Amphetamine and Methamphetamine.Performed By: #### UDS SCRN wRFX ####[facility] ,Barbiturate, MqTwlxdcldJwveofUrzjeg=149Ahq [facility] Physician GroupComment on above:Performed By: #### UDS SCRN wRFX ####[facility] ,Benzodiazepines, UrSee Final LjozfiwAsdhosPlvoxx=663 The [facility] Physician GroupComment on above:Performed By: #### UDS SCRN wRFX ####[facility] ,Benzodiazepines, BbqifBaqegpkuWcbfchHctgmh=481Tgs [facility] Physician GroupComment on above:Performed By: #### UDS SCRN wRFX ####[facility] ,Cannabinoid, UrSee Final ResultsNormalCutoff=50The [facility] Hospital Physician GroupComment on above:Performed By: #### UDS SCRN wRFX ####[facility] ,Cannabinoid, UrineNegativeNormalCutoff=50The [facility] Hospital Physician GroupComment on above:Result Comment: PERFORMED BY:[facility] [place], [place] [phone] MEDICAL DIRECTORVÍCTOR LUCERO M.D.Performed By: #### UDS SCRN wRFX ####[facility] ,Cocaine (Metab), KvZkfujbawYareuyGuzgup=960Ivx [facility] Physician GroupComment on above:Performed By: #### UDS SCRN wRFX ####[facility] ,MethamphetaminePositiveCritically abnormal.The [facility] Physician GroupComment on above:Performed By: #### UDS SCRN wRFX ####[facility] ,Methamphetamines GC/MS, Ur>7990SevyncFxobpp=574Rdb [facility] Physician GroupComment on above:Performed By: #### UDS SCRN wRFX ####[facility] ,Opaites, AvTftxllocUafsmpVpuock=993Lat [facility]ician Group Comment on above:Result Comment: Opiate test includes Codeine and Morphine only. Performed By: #### UDS SCRN wRFX ####[facility] ,Phencyclidine, Ur NegativeNormalCutoff=25The [facility] Hospital Physician GroupComment on above:Result Comment: Performed at: [facility]Fre[facility] [address] [place], [place] [address] [place]: Adenike Panchal PhD, Phone: [phone] By: #### UDS SCRN wRFX ####[facility] ,Urine cocaine metabolite detectionOrdered By: Chaz Frey on 54-89-2319Qvjfetvnnzicwxu Ql (U)Urine cocaine metabolite vsdsaybycIeffgl=838FmpmpicbqAshtabula County Medical CenterUrobilinogen Test strip (U) [Mass/Vol]Ordered By: Jamin Sepulveda on 30-91-5955Myqdpzdupdrs (U) [Mass/Vol] Urobilinogen [Mass/volume] in Urine by Test stripNoHighland District HospitalVitamin B12on 58-20-9993Tiniomvms (Vitamin B12) [Mass/Vol]313 pg/kBXuoltt530-296Cnh [facility] Physician GroupComment on above:Result Comment: PERFORMED BY:[facility] [place], [place] [phone] MEDICAL DIRECTORVÍCTOR LUCERO M.D. Performed By: #### B12, ESR, HS TROP ####[facility] [address] [place] [address] [facility] MEDICAL CENTERVitamin B12 ser/plasOrdered By: Chaz Frey on 58-88-6287Jnpvylibe (Vitamin B12) [Mass/Vol]Vitamin B12 ser/ruqt238-011 [facility] CenterX-ray reportOrdered By: Dung Chakraborty on 74-19-0886Lnems reportFIRWEXNER MEDICAL CENTER Main Rule [address] [place], [place] [address] XRay Report Signed Patient: Aaron Olivarez MR#: [id number] : 1960 Acct:[id number] Age/Sex: 64 / M ADM Date: 5 Loc: Room: [address] [place] [address] Type: ADM INOo Attending Dr: Chaz Frey [...] Dung Chakraborty M.D.11/17/2024 1:26 PM Dictation Location: [place] [address] Transcribed By: [facility] 11/17/24 1326 Dictated By: Dung Chakraborty II, MD 11/17/24 1326 Signed By: 11/17/24 1326 [facility] Work Phone: XR chest 1V portableon 21-11-7898KR chest 1V portable NormalThe [facility] Hospital Physician GroupaPTT in Platelet poor plasma by Coagulation assayOrdered By: Jamin Sepulveda on 06-07-2605cLJP Coag (PPP) [Time]Activated partial thromboplastin time (aPTT) in platelet poor plasma by coagulation aLow 25.1-36.5FSelect Medical Specialty Hospital - AkronComment on above:A hematocrit value greater than 55% may lead to inaccurate results in coagulation testing. Patients having hematocrit values >55% require a special collection tube for coagulation studies. Please contact the laboratory at [phone] for redraw instructions. pH Test strip (U)Ordered By: Jamin Sepulveda on 31-52-1632xZ (U)pH of Urine by Test strip5.0-9.0[facility] Medical CenterCB with Diffon 73-46-6084Igj. Basophil0.04 k/uLNormal0.00-0.20Medina HospitalComment on above:Performed By: #### CDP, CMPX, MG #### [facility] [address] [place] [address] [place]: Olya Barrera.Imm.Granulocyte<0.57Wgkewp5.00-0.30[facility]ina HospitalComment on above:Performed By: #### CDP, CMPX, MG #### [facility] [address] [place] [address] [place]: Olya Barrera.Neutrophil (Seg)3.52 k/uLNormal1.50-8.10 [facility] HospitalComment on above:Performed By: #### CDP, CMPX, MG #### [place] [address] [place]: Dario Almanza MDBasophils/100 WBC (Bld)1 %Normal0-2MSt. John's Health CenterComment on above:Performed By: #### CDP, CMPX, MG #### [facility] [address] [place] [address] [place]: Dario Almnaza MDEosinophils (Bld) [#/Vol]0.03 10*3/uLNormal 0.00-0.44[facility] HospitalComment on above:Performed By: #### CDP, CMPX, MG #### [facility] [address] [place] [address] [place]: KEATON Barreraosinophils/100 WBC (Bld)1 %Normal1-4Medina HospitalComment on above:Performed By: #### CDP, CMPX, MG #### [facility] [address] [place] [address] [place]: Dario Almanza MDErythrocyte distribution width (RBC) [Ratio]13.1 %Bskfor30.8-14.4Medina HospitalComment on above:Performed By: #### CDP, CMPX, MG #### [place] [address] [place]: Dario Almanza MDHematocrit (Bld) [Volume fraction]42.4 %Normal 40.7-50.3Mohiohealth van wert hospitaly St[facility] Joseph HospitalComment on above:Performed By: #### CDP, CMPX, MG #### [place] [address] [place]: Dario Almanza MDHemoglobin (Bld) [Mass/Vol]13.7 g/dLNormal 13.0-17.0Medina HospitalComment on above:Performed By: #### CDP, CMPX, MG #### [address] [address] [place]: Dario Almanza MDImmature granulocytes/100 WBC (Bld)0 %Normal0 Medina HospitalComment on above:Performed By: #### CDP, CMPX, MG #### [place] [address] [place]: Dario Almanza MDLymphocytes (Bld) [#/Vol]1.19 10*3/uLNormal 1.10-3.70Medina HospitalComment on above:Performed By: #### CDP, CMPX, MG #### [facility] [address] [place] [address] [place]: Mis Barreramphocytes/100 WBC (Bld)22 %Nox59-20JfpcmMedina HospitalComment on above:Performed By: #### CDP, CMPX, MG #### [facility] [address] [place] [address] [place]: ELISABETH BarreraCH (RBC) [Entitic mass]29.6 otNfaqji00.2-33.5 [facility]ina HospitalComment on above:Performed By: #### CDP, CMPX, MG #### [facility] [address] [place] [address] [place]: ELISABETH BarreraCHC (RBC) [Mass/Vol]32.3 g/wHFrlckl52.4-34.8 [facility] HospitalComment on above:Performed By: #### CDP, CMPX, MG #### [address] [address] [place]: ELISABETH BarreraCV (RBC) [Entitic vol]91.6 gBOlzibh22.6-102.9 [facility]ina HospitalComment on above:Performed By: #### CDP, CMPX, MG #### [facility] [address] [place] [address] [place]: ELISABETH Barreraonocytes (Bld) [#/Vol]0.61 10*3/uLNormal 0.10-1.20[facility]ina HospitalComment on above:Performed By: #### CDP, CMPX, MG #### [facility] [address] [place] [address] [place]: ELISABETH Barreraonocytes/100 WBC (Bld)11 %Normal3-12[facility]ina HospitalComment on above:Performed By: #### CDP, CMPX, MG #### [facility] [address] [place] [address] [place]: Dario Almanza MDNeutrophil (Seg)65 %Pibqwe33-60EtgjyMedina HospitalComment on above:Performed By: #### CDP, CMPX, MG #### [address] [address] [place]: BUNNY Barrera Automated0.0 per 100 WBCNormal0.0Medina HospitalComment on above:Performed By: #### CDP, CMPX, MG #### [address] [address] [place]: Abida Barrera mean volume (Bld) [Entitic vol]9.2 fL Normal8.1-13.5Medina HospitalComment on above:Performed By: #### CDP, CMPX, MG #### [address] [address] [place]: Christel Barreratekaity (Bld) [#/Vol]227 10*3/wQHcrtsb517-196 [facility]ina HospitalComment on above:Performed By: #### CDP, CMPX, MG #### [address] [address] [place]: SOBIA Barrera (Bld) [#/Vol]4.63 10*6/uLNormal4.21-5.77 Med[facility] HospitalComment on above:Performed By: #### CDP, CMPX, MG #### [address] [address] [place]: DENTON Barrera (Bld) [#/Vol]5.4 10*3/uLNormal3.5-11.3MSt. John's Health CenterComment on above:Performed By: #### CDP, CMPX, MG #### [address] [address] [place]: Dario Madoff, MDComp Metabolic Pr/rfx MGon 98-99-8590Ioyodkk [Mass/Vol]3.8 g/dLNormal3.5-5.2Mohiohealth van wert hospitaly St[facility] Joseph HospitalComment on above: Performed By: #### CDP, CMPX, MG #### [address] [address] [place]: Dario Almanza MDAlbumin/Glob Ratio2.7Hfpgeb6.0-2.5Medina HospitalComment on above:Performed By: #### CDP, CMPX, MG #### [address] [address] [place]: Harsha Barrerakaline Tpgv650 U/QStjsdl68-377EhjofMedina HospitalComment on above:Performed By: #### CDP, CMPX, MG #### [address] [address] [place]: Dario Almanza MDALT [Catalytic activity/Vol]7 U/FTfa95-66OlkidMedina HospitalComment on above:Performed By: #### CDP, CMPX, MG #### [address] [address] [place]: Dario Almanza MDAnion gap [Moles/Vol]7 mmol/LLow9-16Medina HospitalComment on above:Performed By: #### CDP, CMPX, MG #### [address] [address] [place]: Dario Almanza MDAST [Catalytic activity/Vol]20 U/FOimtrp44-58 Medina HospitalComment on above:Performed By: #### CDP, CMPX, MG #### [facility] [address] [place] [address] [place]: Dario Almanza MDBilirubin [Mass/Vol]0.6 mg/dLNormal0.00-1.20 [facility] HospitalComment on above:Performed By: #### CDP, CMPX, MG #### [facility] [address] [place] [address] [place]: NEHEMIAS Barreraalcium [Mass/Vol]9.3 mg/dLNormal8.6-10.4Medina HospitalComment on above:Performed By: #### CDP, CMPX, MG #### [facility] [address] [place] [address] [place]: NEHEMIAS Barrerahloride [Moles/Vol]103 mmol/EExtqwo72-094RaqyxMedina HospitalComment on above:Performed By: #### CDP, CMPX, MG #### [address] [address] [place]: Dario Almanza MDCO2 [Moles/Vol]28 mmol/UAlvzyg77-22MnnokMedina HospitalComment on above:Performed By: #### CDP, CMPX, MG #### [facility] [address] [place] [address] [place]: NEHEMIAS Barrerareatinine [Mass/Vol]0.9 mg/dLNormal0.70-1.20 [facility] HospitalComment on above:Performed By: #### CDP, CMPX, MG #### [place] [address] [place]: Dario Almanza MDGFR/1.73 sq M.predicted among non-blacks MDRD (S/P/Bld) [Vol rate/Area]mL/min/{1.73_m2}Normal>60Medina HospitalComment on above:Result Comment: These results are [...] #### CDP, CMPX, MG #### [facility] [address] [place] [address] [place]: Dario Almanza MDGlucose [Mass/Vol]95 mg/kDCyggoo99-88JpisiSt. John's Health CenterComment on above:Performed By: #### CDP, CMPX, MG #### [facility] [address] [place] [address] [place]: Dario Almanza MDPotassium [Moles/Vol]3.4 mmol/LLow3.7-5.3MSt. John's Health CenterComment on above:Performed By: #### CDP, CMPX, MG #### [place] [address] [place]: Dario Almanza MDProtein [Mass/Vol]5.8 g/dLLow6.6-8.7Medina HospitalComment on above:Performed By: #### CDP, CMPX, MG #### [facility] [address] [place] [address] [place]: Dario Almanza MDSodium [Moles/Vol]138 mmol/GZtycox256-681BsdosMedina HospitalComment on above:Performed By: #### CDP, CMPX, MG #### [facility] [address] [address] [place]: Dario Almanza MDUrea nitrogen [Mass/Vol]15 mg/dLNormal8-23Medina HospitalComment on above:Performed By: #### CDP, CMPX, MG #### [facility] [address] [place] [address] [place]: Dario Almanza MDMagnesiumon 81-21-8286Ocdrbzkhj [Mass/Vol]2.0 mg/dLNormal1.6-2.4Medina HospitalComment on above:Performed By: #### CDP, CMPX, MG #### [employer] [address] [place] [address] [place]: RO Barrera, POCon 73-91-9986Ijlw nitrogen [Mass/Vol]18 mg/dLNormal8-26Medina HospitalCT BRAIN PERFUSIONon 20-27-8859HX BRAIN PERFUSIONEXAMINATION: CTA OF THE HEAD AND [...] by: Edgar Montilla MD 07/14/[address] Joseph HospitalCTA HEAD NECK W CONTRASTon 26-37-0798EAO HEAD NECK W CONTRASTEXAMINATION: CTA OF THE [...] Signed by: Edgar Montilla MD 07/14/24 Final resultNormalMerSt. Mary Medical CenterCalcium, Ionic (POC)on 46-26-2392Obkccir [Moles/Vol]1.11 mmol/LLow1.15-1.33Medina HospitalCreatinine w/GFR, POCon 42-49-2058Etxvwzuyly [Mass/Vol]1.0 mg/dLNormal 0.51-1.19Medina HospitalGFR/1.73 sq M.predicted among non- blacks MDRD (S/P/Bld) [Vol rate/Area]84 mL/min/{1.73_m2}Normal>60MerSt. Mary Medical CenterComment on above:Result Comment: These results [...] renal tubular secretion.Drug Scr, Abuse, Uron 07-14-2024 Amphetamine(s),UrPositiveAbnormalNEGMedina HospitalComment on above:Result Comment: Cutoff: 1000 ng/mLPerformed By: #### UAREBECCA MARIA D #### [employer] [address] [place] [address] [place]: Dario Almanza MDBenzodiazepine(s)PositiveAbfabensNEGMedina HospitalComment on above:Result Comment: Cutoff: 200 ng/ml Performed By: #### UAMIC, MARIA D #### [facility] [address] [place] [address] [place]: NEHEMIAS Barreraannabinoid(s),UrPositiveAbnormalNEGMerSt. Mary Medical CenterComment on above:Result Comment: Cutoff: 50 ng/mlPerformed By: #### UAMIC, MARIA D #### [facility] [address] [place] [address] [place]: Dario Almanza MDInterpretive InfoAssay provides rapid clinical screening only. Presumptive positive results [facility]stown HospitalComment on above:Result Comment: legal purposes should be confirmed by another method. To request confirmation, please call the lab within 7 days of sample submission.Performed By: #### UAMIC, MARIA D #### [address] [address] [place]: Dario Almanza MDBarbiturate(s),UrNegativeNormalNEGMedina HospitalComment on above:Result Comment: Cutoff: 200 ng/ml Performed By: #### UAMIC, MARIA D #### [address] [address] [place]: NEHEMIAS Barreraocaine MetaboliteNegativeBirminghamNEGMedina HospitalComment on above:Result Comment: Cutoff: 300 ng/ml Performed By: #### UAMIC, MARIA D #### [facility] [address] [place] [address] [place]: Dario Almanza MDFentanyl, UrineNegativeNormriNEGMedina HospitalComment on above:Result Comment: Cutoff: 5 ng/mlPerformed By: #### UAMIC, MARIA D #### [facility] [address] [place] [address] [place]: ELISABETH Barreraethadone Ql (U)NegativeNormalThe Jewish HospitalComment on above:Result Comment: Cutoff: 300 ng/ml Performed By: #### UAMIC, MARIA D #### [facility] [address] [place] [address] [place]: Dario Almanza MDOpiate(s), UrNegativeLakeHealth Beachwood Medical CenterComment on above:Result Comment: Cutoff: 300 ng/mlPerformed By: #### UAMIC, MARIA D #### [facility] [address] [place] [address] [place]: Dario Almanza MDOxycodone, UrineNegativeLakeHealth Beachwood Medical CenterComment on above:Result Comment: Cutoff: 100 ng/ml Performed By: #### UAMIC, MARIA D #### [address] [address] [place]: Fidelina Barreraidine, UrNegativeLakeHealth Beachwood Medical CenterComment on above:Result Comment: Cutoff: 25 ng/mlPerformed By: #### UAMIC, MARIA D #### [address] [address] [place]: Dario Almanza MDElectrolyteson 04-91-0508Ehxuk gap [Moles/Vol]9 mmol/LNormal7-16[facility]ina HospitalChloride [Moles/Vol]101 mmol/L Nulhlj79-854NrrnmMedina HospitalCO2 [Moles/Vol]32 mmol/SYpak60-28 [facility] HospitalPotassium [Moles/Vol]4.0 mmol/LNormal3.5-4.5 [facility] Hospitalodium [Moles/Vol]141 mmol/ORpzgsy670-096VrdlhMedina HospitalGlucose (POC)on 75-09-2123Araaykc [Mass/Vol]172 mg/dL Hlco96-984LgariMedina HospitalHgb/Hct, POCon 68-14-4744Jmkdfrjnqs (Bld) [Volume fraction]43 %Makqev49-64Vdxoz St. Joseph HospitalHemoglobin (Bld) [Mass/Vol]14.8 g/jEFqvxrn04.5-17.5[facility]. Joseph HospitalLactic Acidon 79-53-9682Csnslh Acid,Whole Bl1.7 mmol/LNormal0.7-2.1[facility]cy [facility]. Joseph HospitalComment on above:Performed By: #### EDTOX, LACTIC #### [employer] [address] [place] [address] [place]: Dario Almanza MDLactic Acid (POC)on 14-47-6356Xiaasod [Moles/Vol]2.8 mmol/LHigh0.56-1.39[facility]. Joseph HospitalMRI BRAIN W WO CONTRASTon 41-22-9419TTW BRAIN W WO CONTRASTEXAMINATION: MRI OF THE [...] collection present. The proximal portions of the comanche of Lopez demonstrate normal flow voids. ORBITS: [...] Signed by: Edgar Montilla MD 07/14/24 Final resultNormalOhioHealth Dublin Methodist Hospitaltroke Panelon 41-85-4284Dvj. Basophil0.06 k/uLNormal0.00-0.20[facility]ina HospitalComment on above:Performed By: #### STROKE #### [address] [address] [place]: MDAbs. BruceImm.Granulocyte0.00 k/uLNormal0.00-0.30[facility]ina HospitalComment on above:Performed By: #### STROKE #### [place] [address] [employer] [place]: Olya Barrera.Neutrophil (Seg)5.40 k/uLNormal1.50-8.10 [facility] HospitalComment on above:Performed By: #### STROKE #### [address] [address] [place] [place]: Dario Almanza MDBasophils/100 WBC (Bld)1 %Normal0-2[facility]. Joseph HospitalComment on above:Performed By: #### STROKE #### [address] [address] [place] [place]: Dario Almanza MDEosinophils (Bld) [#/Vol]0.00 10*3/uLNormal 0.00-0.44[facility] HospitalComment on above:Performed By: #### STROKE #### [address] [address] [place] [place]: KEATON Barreraosinophils/100 WBC (Bld)0 %Low1-4[facility]gil Medical CenterComment on above:Performed By: #### STROKE #### [address] [address] [employer] [place]: Dario Almanza MDImmature granulocytes/100 WBC (Bld)0 %Normal0 [facility]ina HospitalComment on above:Performed By: #### STROKE #### [address] [address] [employer] [place]: Dario Almanza MDLymphocytes (Bld) [#/Vol]0.43 10*3/uLLow 1.10-3.70[facility]ina HospitalComment on above:Performed By: #### STROKE #### [address] [address] [place] [place]: Mis Barreramphocytes/100 WBC (Bld)7 %Btg23-72YojhmMedina HospitalComment on above:Performed By: #### STROKE #### [address] [address] [employer] [place]: ELISABETH Barreraonocytes (Bld) [#/Vol]0.31 10*3/uLNormal 0.10-1.20[facility] HospitalComment on above:Performed By: #### STROKE #### [address] [address] [employer] [place]: ELISABETH Barreraonocytes/100 WBC (Bld)5 %Normal3-12Medina HospitalComment on above:Performed By: #### STROKE #### [address] [address] [employer] [place]: ELISABETH Barreraorphology David (Bld) [Interp]NormalNormalMedina HospitalComment on above:Performed By: #### STROKE #### [address] [address] [employer] [place]: Bouchra Barrerautrophil (Seg)87 %Pvck38-55LfvqqMedina HospitalComment on above:Performed By: #### STROKE #### [address] [address] [employer] [place]: Dario Almanza MDAnion gap [Moles/Vol]8 mmol/LLow9-16Medina HospitalComment on above:Performed By: #### STROKE #### [address] [address] [place] [place]: Dario Almanza MDCalcium [Mass/Vol]8.5 mg/dLLow8.6-10.4Medina HospitalComment on above:Performed By: #### STROKE #### [address] [address] [place] [place]: NEHEMIAS Barrerahloride [Moles/Vol]102 mmol/WYthgpx08-183NbtmiMedina HospitalComment on above:Performed By: #### STROKE #### [address] [address] [place] [place]: Dario Almanza MDCK [Catalytic activity/Vol]101 U/OBoqzfo60-137 [facility] HospitalComment on above:Performed By: #### STROKE #### [address] [address] [place] [place]: Dario Almanza MDCO2 [Moles/Vol]27 mmol/LOfhnvv72-66VfgcsMedina HospitalComment on above:Performed By: #### STROKE #### [address] [address] [employer] [place]: Dario Almanza MDCreatinine [Mass/Vol]1.1 mg/dLNormal0.70-1.20 [facility] CenterComment on above:Performed By: #### STROKE #### [facility] [address] [place] [address] [employer] [place]: Dario Almanza MDGFR/1.73 sq M.predicted among non-blacks MDRD (S/P/Bld) [Vol rate/Area]74 mL/min/{1.73_m2}Normal>60Medina HospitalComment on above:Result Comment: These results are [...] renal tubular secretion.Performed By: #### STROKE #### [facility] [address] [place] [address] [place] [place]: Dario Almanza MDGlucose [Mass/Vol]174 mg/xUOcws73-24PcxthSt. John's Health CenterComment on above:Performed By: #### STROKE #### [facility] [address] [place] [address] [employer] [place]: Dario Almanza MDMyoglobin [Mass/Vol]106 ng/bLFfpg15-48LxbwxMedina HospitalComment on above:Performed By: #### STROKE #### [facility] [address] [place] [address] [employer] [place]: Dario Almanza MDPotassium [Moles/Vol]4.0 mmol/LNormal3.7-5.3 [facility] HospitalComment on above:Result Comment: SPECIMEN SLIGHTLY HEMOLYZED, RESULTS MAY BE ADVERSELY AFFECTED.Performed By: #### STROKE #### [facility] [address] [place] [address] [employer] [place]: Dario Almanza MDSodium [Moles/Vol]137 mmol/RQlmzcn470-624TndoxMedina HospitalComment on above:Performed By: #### STROKE #### [address] [address] [employer] [place]: Brendan Barrera High Sens24 ng/LHigh0-Medina HospitalComment on above:Result Comment: High Sensitivity Troponin values cannot be compared with other Troponin methodologies.Performed By: #### STROKE #### [address] [address] [employer] [place]: Dario Almanza MDUrea nitrogen [Mass/Vol]16 mg/dLNormal8-Medina HospitalComment on above:Performed By: #### STROKE #### [address] [address] [employer] [place]: Dario Almanza MDaPTAundrea Coag (Bld) [Time]22.1 sLow23.0-36.5Medina HospitalComment on above:Result Comment: IV Heparin Therapy Range: 66.0-92.0 secPerformed By: #### STROKE #### [address] [address] [place] [place]: ESPERANZA Barrera Coag (PPP) [Relative time]1.1 {INR}Normal Medina HospitalComment on above:Result Comment: Therapeutic Range: Moderate Anticoagulant Intensity: INR = 2.0-3.0 High Anticoagulant Intensity: INR = 2.5-3.5Performed By: #### STROKE #### [address] [address] [employer] [place]: JAYLAN Barrera Coag (PPP) [Time]13.6 jSwevgu77.7-14.9Medina HospitalComment on above:Performed By: #### STROKE #### [address] [address] [place] [place]: Dario Almanza MDErythrocyte distribution width (RBC) [Ratio]13.2 %Udivlu98.8-14.4Medina HospitalComment on above:Performed By: #### STROKE #### [address] [address] [place] [place]: Dario Almanza MDHematocrit (Bld) [Volume fraction]42.4 %Normal 40.7-50.3MSt. John's Health CenterComment on above:Performed By: #### STROKE #### [address] [address] [employer] [place]: Dario Almanza MDHemoglobin (Bld) [Mass/Vol]13.9 g/dLNormal 13.0-17.0Medina HospitalComment on above:Performed By: #### STROKE #### [address] [address] [employer] [place]: ELISABETH BarreraCH (RBC) [Entitic mass]29.6 zrDknalf71.2-33.5 [facility]ina HospitalComment on above:Performed By: #### STROKE #### [address] [address] [employer] [place]: ELISABETH BarreraCHC (RBC) [Mass/Vol]32.8 g/vCSdpvqy02.4-34.8 [facility]ina HospitalComment on above:Performed By: #### STROKE #### [address] [address] [place] [place]: ELISABETH BarreraCV (RBC) [Entitic vol]90.2 pHFdpgdx37.6-102.9 Medina HospitalComment on above:Performed By: #### STROKE #### [address] [address] [employer] [place]: Dario Almanza MDNRBC Automated0.0 per 100 WBCNormal0.0Medina HospitalComment on above:Performed By: #### STROKE #### [address] [address] [employer] [place]: Abida Barrera mean volume (Bld) [Entitic vol]9.3 fL Normal8.1-13.5Medina HospitalComment on above:Performed By: #### STROKE #### [address] [address] [place] [place]: Ayan Barrera (Bld) [#/Vol]267 10*3/cXXeamms315-736 [facility]ina HospitalComment on above:Performed By: #### STROKE #### [address] [address] [employer] [place]: SOBIA Barrera (Bld) [#/Vol]4.70 10*6/uLNormal4.21-5.77 [facility] HospitalComment on above:Performed By: #### STROKE #### [address] [address] [employer] [place]: DENTON Barrera (Bld) [#/Vol]6.2 10*3/uLNormal3.5-11.3Mohiohealth van [facility] hospitaly [facility] Joseph HospitalComment on above:Performed By: #### STROKE #### [address] [address] [place] [place]: NILA Barrera w/reflex to FT4on 07-72-9881Lrgyssn Stim. Horm.1.44 uIU/mLNormal0.27-4.20Medina HospitalComment on above: Performed By: #### TSHX ####[address] [place] [address] Lab Director: Lavon Barrera Scr, Bld, EDon 07-14-2024 Acetaminophen [Mass/Vol]ug/sGUhc45-40QelxrMedina HospitalComment on above:Performed By: #### EDTOX, LACTIC #### [facility] [address] [place] [address] [place] [place]: Dario Almanza MDEthanol [Mass/Vol]mg/dLNormal<10Medina HospitalComment on above:Performed By: #### EDTOX, LACTIC #### [facility] [address] [place] [address] [employer] [place]: Dario Almanza MDEthanol percent<0.010Normal<0.010Medina HospitalComment on above:Performed By: #### EDTOX, LACTIC #### [facility] [address] [place] [address] [place] [place]: VANESA Barreraalicylate<0.2Eolizw5.0-10.0Medina HospitalComment on above:Performed By: #### EDTOX, LACTIC #### [facility] [address] [place] [address] [place] [place]: Dario Almanza MDUrinalysis w/ Microon 10-71-6926SwdhqctbQbpm NormalNONEMeCity of Hope National Medical CenterComment on above:Performed By: #### UAMIC, MARIA D #### [address] [address] [place] [place]: Dario Almanza MDBilirubin, SemiQt,UrNegativeNormalNEGMedina HospitalComment on above:Performed By: #### UAMIC, MARIA D #### [facility] [address] [place] [address] [employer] [place]: Dario Almanza MDBlood, UrineNegativeNormalNEGMedina HospitalComment on above:Performed By: #### UAMIC, MARIA D #### [facility] [address] [place] [address] [place] [place]: NEHEMIAS Barreraasts5 TO 10 HYALINENormal0-8Medina HospitalComment on above:Result Comment: Reference range defined for non- centrifuged specimen.Performed By: #### ERI, MARIA D #### [address] [address] [employer] [place]: NEHEMIAS Barreralarity (U)ClearNormalCLEARMedina HospitalComment on above:Performed By: #### UAREBECCA, MARIA D #### [address] [address] [employer] [place]: NEHEMIAS Barreraolor (U)YellowNormalYELMerSt. Mary Medical CenterComment on above:Performed By: #### ERI, MARIA D #### [place] [address] [employer] [place]: Dario Almanza MDEpithelial cells LM Ql (Urine sed)0 TO 2Normal 0-5Medina HospitalComment on above:Performed By: #### ERI, MARIA D #### [address] [address] [place] [place]: Dario Almanza MDGlucose Ql (U)1+ mg/dLAbnormalNEGMedina HospitalComment on above:Performed By: #### ELIOMIC, MARIA D #### [address] [address] [place] [place]: Dario Almanza MDKetones Ql (U)NegativeNormalNEGMedina HospitalComment on above:Performed By: #### ERI, MARIA D #### [place] [address] [employer] [place]: Dario Almanza MDLeukocyte esterase Test strip Ql (U)Negative NormalNEGMedina HospitalComment on above:Performed By: #### UAMIC, MARIA D #### [facility] [address] [place] [address] [place] [place]: Vita Barreraite,UrNegativeNormalNEGMedina HospitalComment on above:Performed By: #### UAMIC, MARIA D #### [facility] [address] [place] [address] [place] [place]: JAYME Barrera,Ur7.3Iejalq2.0-8.0Medina HospitalComment on above:Performed By: #### UAMIC, MARIA D #### [facility] [address] [place] [address] [place] [place]: Treasure Barrera Ql (U)1+ mg/dLAbnormRegency Hospital CompanyComment on above:Performed By: #### UAMIC, MARIA D #### [facility] [address] [place] [address] [place] [place]: VANESA Barrerapec. [place],Ur1.996Fown6.005-1.030Medina HospitalComment on above:Performed By: #### UAMIC, MARIA D #### [facility] [address] [place] [address] [place] [place]: Sierra Barrera RBC's0 TO 9Mxvvmy5-4AzyglMedina HospitalComment on above:Result Comment: Reference range defined for non- centrifuged specimen.Performed By: #### UAMIC, MARIA D #### [facility] [address] [place] [address] [place] [place]: Sierra Barrera WBC'sNoneNormal0-5Medina HospitalComment on above:Performed By: #### UAMIC, MARIA D #### [facility] [address] [place] [address] [place] [place]: Dario Madoff, MDUrobilinogen,UrNormalNormal0.0-1.0Medina HospitalComment on above:Performed By: #### UAREBECCA, MARIA D #### [facility] [place] [address] [place]: Dario Almanza MDVenous Bld Gas,POCon 22-21-2761VAW4 (Bld) [Moles/Vol]31.9 mmol/LHigh22.0-29.0Medina HospitalOxygen saturation in Blood45.4 %Low60.0-85.0Medina HospitalpCO2, Kuyqmy44.5 mm RoYhutpz92.0-51.0[facility]ina HospitalpH,Venous7.435 High7.320-7.430Medina HospitalpO2, Lvkrwb35.6 mm HgLow30.0-50.0 [facility] HospitalPositive Base Excess (calc)6.4 mmol/LHigh0.0-3.0 [facility] HospitalXR ABDOMEN (KUB) (SINGLE AP VIEW)on 16-25-1246NQ ABDOMEN (KUB) (SINGLE AP VIEW)EXAMINATION: ONE SUPINE [...] Signed by: Jt Gray MD 07/14/24 Final resultNormalMedina HospitalXR CHEST PORTABLEon 07-14-2024 XR CHEST PORTABLEEXAMINATION: ONE [...] by: Basil Witt DO 07/14/[address] Joseph HospitalCalcium [Mass/volume] in Serum or PlasmaOrdered By: Janae Jose on 24-38-6844Zeoawjm [Mass/Vol]9.0 mg/dL 8.6-10.3FSelect Medical Specialty Hospital - AkronCarbon dioxide, total [Moles/volume] in Serum or PlasmaOrdered By: Janae Jose on 85-86-5589UE5 [Moles/Vol]30.3 mmol/L21.0-31.0[facility] CenterChloride [Moles/volume] in Serum or PlasmaOrdered By: Janae Jose on 19-12-1363Wnpcjeey [Moles/Vol]98 mmol/L 98-107[facility] CenterCreatinine [Mass/volume] in Serum or PlasmaOrdered By: Janae Jose on 82-70-2592Vuanppyeoc [Mass/Vol]0.97 mg/dL 0.70-1.30[facility] CenterGlucose [Mass/volume] in Serum or PlasmaOrdered By: Janae Jose on 68-36-2150Drthode [Mass/Vol]105 mg/gH75-487 [facility] CenterComment on above:ADA recommended reference rangeRandom Glucose Reference Range is dependent on time and content of last meal. Glucose of more than 200 mg/dL in a nonstressed, ambulatory subject supports the diagnosisof Diabetes Mellitus.No Panel InformationOrdered By: Janae Jose on 29-23-2458Lykoddikp GFR (CKD-EPI)> 60.0 mL/MinAshtabula County Medical CenterPharmacy Creatinine Clearance (Chem82.90[facility] CenterPotassium [Moles/volume] in Serum or PlasmaOrdered By: Janae Jose on 53-05-5075Lsihqxomv [Moles/Vol]4.4 mmol/L3.5-5.1FRegency Hospital Toledoerum or plasma anion gap determinationOrdered By: Janae Jose on 47-88-3142Gvrrr gap [Moles/Vol]8.1 mmol/L6.0-15.0Protestant Hospitalodium [Moles/volume] in Serum or PlasmaOrdered By: Janae Jose on 17-64-3254Madkoz [Moles/Vol]132 mmol/X066-426TokoehzbbAshtabula County Medical CenterUrea nitrogen [Mass/volume] in Serum or PlasmaOrdered By: Janae Jose on 30-10-9155Vvih nitrogen [Mass/Vol]25 mg/dL7-25[facility] Ammonia [Moles/volume] in PlasmaOrdered By: Víctor Agrawal on 58-30-1509Awhwsea (P) [Moles/Vol]22 umol/Y36-58ZibqfbmmiAshtabula County Medical CenterBasophils Auto (Bld) [#/Vol]Ordered By: Magdy Douglass on 15-96-8676Gvztdtdjq (Bld) [#/Vol] 0.0 10*3/uL0.0-0.2FSelect Medical Specialty Hospital - AkronBasophils/100 WBC Auto (Bld) Ordered By: Magdy Douglass on 73-95-6513Lzjtvietg/100 WBC (Bld)0.1 %. [facility] Medical CenterEosinophils Auto (Bld) [#/Vol]Ordered By: Magdy Douglass on 95-14-8498Chhmhtdghdr (Bld) [#/Vol]0.0 10*3/uL0.0-0.45 [facility] CenterEosinophils/100 WBC Auto (Bld)Ordered By: Magdy Douglass on 75-77-9913Cbwvdnfnvjv/100 WBC (Bld)0.0 %.[facility] Medical CenterErythrocyte distribution width Auto (RBC) [Ratio]Ordered By: Magdy Douglass on 01-73-5437Zgdexyleqtc distribution width (RBC) [Ratio]16.5 %12.0-14.8[facility] Medical CenterFolate [Mass/volume] in Serum or PlasmaOrdered By: Janae Jose on 28-82-8665Ddeugx [Mass/Vol]9.7 ng/mL>5.9 [facility] CenterComment on above:Folate reference range: >5.9 ng/mlThe WHO technical consultation on folate and vitamin m35rbuchghjhxwh has determined that folate concentrations lessthan 4 ng/ml are considered deficient. Hematocrit Auto (Bld) [Volume fraction]Ordered By: Magdy Douglass on 70-61-4340Uutifmvtey (Bld) [Volume fraction]45.0 %38.8-50.0[facility] CenterHemoglobin [Mass/volume] in BloodOrdered By: Magdy Douglass on 45-25-9346Taehrbvnqd (Bld) [Mass/Vol]14.8 g/dL13.0-17.0[facility] CenterLeukocytes [#/volume] corrected for nucleated erythrocytes in Blood by Automated counOrdered By: Magdy Douglass on 59-57-5322NNT corrected for nucl RBC Auto (Bld) [#/Vol]9.6 10*3/uL4.1-10.5FSelect Medical Specialty Hospital - AkronLymphocytes Auto (Bld) [#/Vol]Ordered By: Magdy Douglass on 05-04-2024 Lymphocytes (Bld) [#/Vol]0.5 10*3/uL1.00-4.8[facility] Lymphocytes/100 WBC Auto (Bld)Ordered By: Magdy Douglass on 05-04-2024 Lymphocytes/100 WBC (Bld)4.9 %.[facility] Medical CenterMCH Auto (RBC) [Entitic mass]Ordered By: Magdy Douglass on 95-06-2566GDR (RBC) [Entitic mass]29.8 pg27.5-35.2FSelect Medical Specialty Hospital - AkronMCHC Auto (RBC) [Mass/Vol] Ordered By: Magdy Douglass on 32-13-3506OVGM (RBC) [Mass/Vol]32.9 g/dL 32.5-35.6FSelect Medical Specialty Hospital - AkronMCV Auto (RBC) [Entitic vol]Ordered By: Magdy Douglass on 31-80-4324MEV (RBC) [Entitic vol]90.4 fL83.5-101 [facility] CenterMonocytes Auto (Bld) [#/Vol]Ordered By: Magdy Douglass on 39-18-5335Egblaugwt (Bld) [#/Vol]0.3 10*3/uL0.0-0.8[facility] CenterMonocytes/100 WBC Auto (Bld)Ordered By: Magdy Douglass on 11-73-8593Nhaqzbabs/100 WBC (Bld)3.0 %.[facility] Neutrophils Auto (Bld) [#/Vol]Ordered By: Magdy Douglass on 05-04-2024 Neutrophils (Bld) [#/Vol]8.9 10*3/uL1.8-7.7FSelect Medical Specialty Hospital - Akron Neutrophils/100 WBC Auto (Bld)Ordered By: Magdy Douglass on 05-04-2024 Neutrophils/100 WBC (Bld)92.0 %.[facility] Medical CenterNucleated erythrocytes [Presence] in Blood by Automated countOrdered By: Magdy Douglass on 26-48-3954Bsnzzwjaz RBC Auto Ql (Bld)0.0 /100{WBC}0-0.5FSelect Medical Specialty Hospital - AkronPlatelet mean volume Auto (Bld) [Entitic vol]Ordered By: Magdy Douglass on 01-54-7968Ixinmpgb mean volume (Bld) [Entitic vol]6.5 fL6.6-10.1 [facility] Medical CenterPlatelets Auto (Bld) [#/Vol]Ordered By: Magdy Douglass on 25-63-8746Usvathlsf (Bld) [#/Vol]417 10*3/mM196-502GsavubnsoAshtabula County Medical CenterRBC Auto (Bld) [#/Vol]Ordered By: Magdy Douglass on 68-67-3876DAV (Bld) [#/Vol]4.97 10*6/uL3.90-5.60[facility] Medical CenterThyrotropin [Units/volume] in Serum or PlasmaOrdered By: Janae Jose on 67-90-3258WXG Qn5.50 m[IU]/L0.45-5.33[facility] Medical CenterVitamin B12 ser/plasOrdered By: Janae Jose on 53-61-4414Dugutotnb (Vitamin B12) [Mass/Vol]500 pg/eF206-131OnfyikaaqAshtabula County Medical CenterWBC Auto (Bld) [#/Vol]Ordered By: Magdy Douglass on 83-53-7465CHN (Bld) [#/Vol]9.6 10*3/uL 4.1-10.5FSelect Medical Specialty Hospital - AkronAlanine aminotransferase [Enzymatic activity/volume] in Serum or PlasmaOrdered By: Magdy Douglass on 05-03-2024 ALT [Catalytic activity/Vol]14 U/L7-52[facility] CenterAlbumin [Mass/volume] in Serum or Plasma by Bromocresol green (BCG) dye binding metho Ordered By: Magdy Douglass on 05-34-8305Baxqucp BCG dye [Mass/Vol]3.1 g/dL 3.5-5.7FSelect Medical Specialty Hospital - AkronAlkaline phosphatase [Enzymatic activity/volume] in Serum or PlasmaOrdered By: Magdy Douglass on 05-03-2024 ALP [Catalytic activity/Vol]131 U/K31-163FbevfmatoAshtabula County Medical Center Aspartate aminotransferase [Enzymatic activity/volume] in Serum or PlasmaOrdered By: Magdy Douglass on 34-21-5668TMK [Catalytic activity/Vol]12 U/L13-39 [facility] CenterBilirubin.total [Mass/volume] in Serum or PlasmaOrdered By: Magdy Douglass on 64-74-8673Milzgbzik [Mass/Vol]0.4 mg/dL 0.3-1.0[facility] Medical CenterGlobulin Calc (S) [Mass/Vol]Ordered By: Magdy Douglass on 26-98-2113Ggafsyik (S) [Mass/Vol]2.8 g/dLAshtabula County Medical CenterProtein [Mass/volume] in Serum or PlasmaOrdered By: Magdy Douglass on 20-49-8090Yczbrvf [Mass/Vol]5.9 g/dL6.4-8.9Protestant Hospitalerum or plasma albumin/globulin mass ratioOrdered By: Magdy Douglass on 18-19-2582Hcuhkpc/Globulin [Mass ratio]1.1 {ratio}[facility] CenterC reactive protein [Mass/volume] in Serum or Plasma Ordered By: Magdy Doulgass on 56-99-9015PUM [Mass/Vol]2.5 mg/dL0.0-0.5 [facility] CenterLactate [Moles/volume] in Serum or Plasma Ordered By: Magdy Douglass on 34-41-3743Leioiik [Moles/Vol]0.6 mmol/L0.5-2.2 [facility] CenterMagnesium [Mass/volume] in Serum or Plasma Ordered By: Magdy Douglass on 94-79-4254Yhrygyzny [Mass/Vol]2.1 mg/dL1.9-2.7 [facility] CenterTroponin I.cardiac [Mass/volume] in Serum or Plasma by Detection limit <= 0.01 ng/Ordered By: Janae Jose on 05-02-2024 Troponin I.cardiac DL <= 0.01 ng/mL [Mass/Vol]74.8 pg/mL0.0-20.0[facility] CenterComment on above:Critical Result : Called to and read back by: JAYLAN YAO at: 05/02/2024 15:02:51 by:GABACETAMINOPHENon 11-24-2022 Acetaminophen [Mass/Vol]ug/wEIxspus44.0-30.0[facility] HospitalComment on above:Performed By: #### SALYC, ACET, CMP, ETH #### [facility] [address] [place] [address] Dr. Renny West AUTO DIFFon 95-27-3569FLNV #0.0 103/ulNormal0.0-0.1The [facility] HospitalComment on above:Performed By: #### CBC #### [facility] [address] [address] [address] Renny Yousifsophils/100 WBC (Bld)0.8 %Normal0.2-2.0[facility] Comment on above:Performed By: #### CBC #### [facility] [address] [place] [address] Dr. Renny Triplett #0.3 103/ulNormal0.0-0.7The [facility] HospitalComment on above: Performed By: #### CBC #### [facility] [address] [address] [address] Renny Rinaldiosinophils/100 WBC (Bld)6.2 %Normal0.9-7.0[facility] Comment on above:Performed By: #### CBC #### [facility] [address] [place] [address] Dr. Renny Rinaldirythrocyte distribution width (RBC) [Ratio]14.8 %Ssicix10.0-15.0 [facility] HospitalComment on above:Performed By: #### CBC #### [facility] [address] [place] [address] Dr. Renny AzevedoHematocrit (Bld) [Volume fraction]38.6 %Critically low42.0-54.0 [facility] on above:Performed By: #### CBC #### [facility] [address] [place] [address] Dr. Renny AzevedoHemoglobin (Bld) [Mass/Vol]12.6 g/dLCritically low14.0-18.0[facility] HospitalComment on above:Performed By: #### CBC #### [facility] [address] [place] [address] Dr. Renny Pa #0.01 10e3/ulNormal0.00-0.03The [facility] Memorial HospitalComment on above:Performed By: #### CBC #### [facility] [address] [place] [address] Dr. Renny Pa %0.2 %Normal0.0-0.5The The [facility] Southwoodsment on above: Performed By: #### CBC #### [facility] [address] [place] [address] Dr. Renny ClarosH #1.4 103/ulNormal1.2-3.8The [facility] HospitalComment on above:Performed By: #### CBC #### [facility] [address] [place] [address] Dr. Renny Reedmphocytes/100 WBC (Bld)28.1 %Wpivwr84.5-60.0The [facility] Memorial HospitalComment on above:Performed By: #### CBC #### [facility] [address] [address] [address] Renny Geronimo DIFF REQNONormalThe [facility] Memorial HospitalComment on above: Performed By: #### CBC #### [facility] [address] [place] [address] Dr. Renny Emerson (RBC) [Entitic mass]31.0 pfAqgwyr36.9-34.0The [facility] HospitalComment on above:Performed By: #### CBC #### [facility] [address] [place] [address] Dr. Renny Emerson (RBC) [Mass/Vol]32.6 g/tAUktlvm04.9-35.2The [facility] HospitalComment on above:Performed By: #### CBC #### [facility] [address] [place] [address] Dr. Renny Emerson (RBC) [Entitic vol]95.1 fLCritically high80.0-94.0The [facility] HospitalComment on above:Performed By: #### CBC #### [facility] [address] [place] [address] Dr. Renny Cook #0.3 103/ulNormal0.3-0.8The [facility] HospitalComment on above:Performed By: #### CBC #### [facility] [address] [place] [address] Dr. Renny Calvilolocytes/100 WBC (Bld)5.8 %Normal1.7-12.0The [facility] Comment on above:Performed By: #### CBC #### [facility] [address] [place] [address] Dr. Renny Guaman #3.0 103/ulNormal1.4-6.5The [facility] HospitalComment on above:Performed By: #### CBC #### [facility] [address] [place] [address] Dr. Renny Chanutrophils/100 WBC (Bld)58.9 %Yuvzgy14.0-75.0Det[facility] Memorial HospitalComment on above:Performed By: #### CBC #### [facility] [address] [address] [address] Renny AzevedoPlatelet mean volume (Bld) [Entitic vol]8.8 fLCritically low 9.5-13.5The [facility] HospitalComment on above:Performed By: #### CBC #### [facility] [address] [place] [address] Dr. Renny AzevedoPLT260 103/wiFrcwgm608-344Dbg [facility] HospitalComment on above: Performed By: #### CBC #### [facility] [address] [place] [address] Dr. Renny AzevedoRBC4.06 106/ulCritically low4.70-6.10The [facility] HospitalComment on above:Performed By: #### CBC #### [facility] [address] [place] [address] Dr. Renny AzevedoWBC5.0 103/ulNormal4.0-11.0The [facility] HospitalComment on above: Performed By: #### CBC #### [facility] [address] [place] [address] Dr. Renny AzevedoCT CSPINE WO CONon [id number] JOSE WO CONEXAM: CT LISINE WO CON [...] Electronically authenticated by: VIC ADAMES Date: 2022-11-24 05:42[facility] HospitalCT FACIAL BONES WO CONon [id number] FACIAL BONES WO CON EXAMINATION: CT HEAD [...] Electronically authenticated by: ANNA RICO Date: 2022-11-24 05:43[facility] HospitalDRUG SCREEN RAPID (URINE)on [id number] NEGATIVEDetwiler Memorial HospitalComment on above:Performed By: #### DRUGRPD #### [facility] [address] [place] [address] Dr. Renny AzevedoBARNegativeNormalNEGATIVEDetwiler Memorial HospitalComment on above: Performed By: #### DRUGRPD #### [facility] [address] [place] [address] Dr. Renny AzevedoBUPNegativeNormalNEGATIVEDetwiler Memorial HospitalComment on above: Performed By: #### DRUGRPD #### [facility] [address] [place] [address] Dr. Renny AzevedoBZONegativeNormalNEGATIVEDetwiler Memorial HospitalComment on above: Performed By: #### DRUGRPD #### [facility] [address] [place] [address] Dr. Renny LittlejohnCPositiveAbbarnes-jewish hospitalalNEGATIVEDetwiler Memorial HospitalComment on above: Performed By: #### DRUGRPD #### [facility] [address] [place] [address] Dr. Renny MorrisonCleveland Clinic Lutheran HospitalComment on above: Result Comment: AMP (Amphetamine): 500ng/mL, BAR (Barbituates): 200 ng/mL, BZO (Benzodiazepines): 150 ng/mL, BUP (Buprenorphine): 10 ng/mL, SHAYE (Cocaine): 150 ng/mL, mAMP (Methamphetamine): 500 ng/mL, MTD (Methadone): 200 ng/mL, OPI (Opiates): 100 ng/mL, OXY (Oxycodone): 100 ng/mL, PCP (Phencyclidine): 25 ng/mL, PPX (Propoxyphene): 300 ng/mL, THC (Cannabinoids): 50 ng/mL, TCA (Trycyclic Antidepressants): 300 ng/mLPerformed By: #### DRUGRPD #### [facility] [address] [place] [address] Dr. Renny AzevedoDRUG CUT HEADERDRUG CLASS TEST SYSTEM CUT-OFF CONCENTRATIONS ARE FOLLOWS:NormalThe [facility] HospitalComment on above:Performed By: #### DRUGRPD #### [facility] [address] [place] [address] Dr. Renny AzevedomAMPPositiveAbnormalNEGATIVEDetwiler Memorial HospitalComment on above:Performed By: #### DRUGRPD #### [facility] [address] [place] [address] Dr. Renny AzevedoMTDNegativeNormalNEGATIVEDetwiler Memorial HospitalComment on above: Performed By: #### DRUGRPD #### [facility] [address] [place] [address] Dr. Renny AzevedoOPINegativeNormalNEGATIVEDetwiler Memorial HospitalComment on above: Performed By: #### DRUGRPD #### [facility] [address] [place] [address] Dr. Renny AzevedoOXYNegativeNormalNEGATIVEDetwiler Memorial HospitalComment on above: Performed By: #### DRUGRPD #### [facility] [address] [place] [address] Dr. Renny AzevedoPCPNegativeNormalNEGATIVEDetwiler Memorial HospitalComment on above: Performed By: #### DRUGRPD #### [facility] [address] [place] [address] Dr. Renny AzevedoPPXNegativeNormalNEGATIVEDetwiler Memorial HospitalComment on above: Performed By: #### DRUGRPD #### [facility] [address] [place] [address] Dr. Renny AzevedoTCANegativeNormalNEGATIVEDetwiler Memorial HospitalComment on above: Performed By: #### DRUGRPD #### [facility] [address] [place] [address] Dr. Renny LouisegativeNormalNEGATIVEThe The [facility] Southwoodsment on above: Performed By: #### DRUGRPD #### [facility] [address] [place] [address] Dr. Renny Cooper (BLD ALC)on 23-91-7350DEH NOTENOTE: 80 mg/dl is the legal limit for a blood alcohol levelNoSt. Elizabeth HospitalComment on above: Performed By: #### ETH #### [facility] [address] [place] [address] Dr. Renny Stevensonanol [Mass/Vol]169 mg/dLNoSt. Elizabeth HospitalComment on above:Performed By: #### ETH #### [facility] [address] [place] [address] Dr. Renny Laura NOTENOTE: 80 mg/dl is the legal limit for a blood alcohol levelNoSt. Elizabeth HospitalComment on above:Performed By: #### SALYC, ACET, CMP, ETH #### [facility] [address] [place] [address] Dr. Renny Stevensonanol [Mass/Vol]239 mg/dLNoSt. Elizabeth HospitalComment on above:Performed By: #### SALYC, ACET, CMP, ETH #### [facility] [address] [place] [address] Dr. Renny HouseF 14(COMP METB)on 84-78-8792Tpzhnnn [Mass/Vol]4.2 g/dLNormal 3.4-5.0The [facility] on above:Performed By: #### SALYC, ACET, CMP, ETH #### [facility] [address] [place] [address] Dr. Renny AzevedoAlbumin/Globulin [Mass ratio]1.3 {ratio}NormalThe [facility] on above:Performed By: #### SALYC, ACET, CMP, ETH #### [facility] [address] [place] [address] Dr. Renny LanierP [Catalytic activity/Vol]99 U/ODmzwvl83-800Vyw [facility] Hospital at Southwoodsment on above:Performed By: #### SALYC, ACET, CMP, ETH #### [facility] [address] [address] [address] Renny Cummins [Catalytic activity/Vol]157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 [place], [place] 5763006-24-2024 14:25-0400 Diastolic blood kwuojfxg90 mm[Hg]DO Sulaiman Degroh Work Phone: 1(811)767-[address] [place], [place] 5763006-24-2024 14:25-0400 Heart rate64 /minDO Sulaiman Degroh Work Phone: 1(490)021-[address] [place], [place] 5763006-24-2024 14:25-0400 Respiratory rate19 /minDO Sulaiman Degroh Work Phone: 1(977)239-[address] [place], [place] 5763006-24-2024 14:25-0400 SaO2% (BldA) [Mass fraction]93 %DO Sulaiman Degroh Work Phone: 1(236)131-[facility]06-24-2024 14:25-0400 Systolic blood sohokngx478 mm[Hg]DO Sulaiman Degroh Work Phone: [phone]06-24-2024 07:34-0400 Inhaled oxygen flow rate2 L/minDO Sulaiman Feldman Work Phone: [facility]06-24-2024 06:00-0400 Body jyahqk90.7 kgDO Sulaiman Feldman Work Phone: [facility]06-22-2024 01:00-0400 Inhaled oxygen trudogjwvtjyq75 %DO Sulaiman Feldman Work Phone: [facility]06-20-2024 11:24-0400 Body flvniz293.88 cmDO Sulaiman Feldman Work Phone: [facility] Encounters Encounter DateEncounter TypeCare ProviderFacilityStart: 92-88-4429Dnz-patient / Non-visitLarry E Kodi Perez DO-[facility] Palliative Work Phone: Start: 16-18-0320Hys-patient / Non-visitChristopher Scarlett [place]-[facility] Pulmonary Work Phone: Start: 07-31-2025 End: 01-90-3955Fvtmgkbohh and management of inpatientFiras Seffo Facility:[facility]: 48-89-0179Ioh-patient / Non-visitAdam Rachelle [facility] Neurology Work Phone: Start: 07-31-2025 End: 57-16-7982pxlpsxrlbaFdbmh Rudy Feldman DO Work Phone: [facility] Work Phone: Start: 07-31-2025 End: 84-18-0353Kywhzdwo Adrianna Peng DO-[facility] Start: 06-07-2025 End: 34-06-3671rbjcosqlaqIWSKCLQKP LANGSHAWFacility:METROHealthStart: 06-07-2025 Non-patient / Non-visitDerek Wai [place] -[facility] Pulmonary Work Phone: Start: 06-07-2025 End: 03-53-5302Cquiscffqs and management of inpatientEarl Neisha Facility:[facility]: 44-96-2068Xxl-patient / Non-visitDavid Degroh DO Work Phone: [facility] Cardiology Work Phone: Start: 11-18-2024 End: 12-06-5005Zbrrsojffg and management of inpatientDavid Degroh DO Work Phone: [facility] [place] [facility] Work Phone: Start: 11-17-2024 End: 42-64-4826Wnzpdpjwz department patient visitNO PCP NO [facility] PPGStart: 38-99-0571Joseskuzzw and management of inpatientDavid Degroh DO Work Phone: [facility] [place] [facility] Work Phone: Start: 52-60-4028ljcfazisirh encounterDavid L Degroh DO Work Phone: [facility] Work Phone: Start: 07-14-2024 End: 45-76-1597Ipymtmugsg and management of inpatientAHMED B [facility]: 41-95-3196Jht-patient / Non-visitDO Sulaiman Feldman Work Phone: [facility] Work Phone: Start: 07-62-8890Eyq-patient / Non-visitDO Sulaiman Feldman Work Phone: [facility] Work Phone: Start: 05-01-2024 End: 39-39-9699Syrsaarzjy and management of inpatientDO Sulaiman Feldman Work Phone: [facility] [place] [facility] Work Phone: Start: 11-24-2022 End: 07-08-6964eezdhogyhnZA NONE LISTED REQUESTFacility:I7Gkioq: 10-14-2018 End: 45-13-8898Rnbdoxnve department patient visitMervera Manzanares HospitalStart: 01-29-2018 End: 88-80-8287Npnawdzzzj and management of inpatientSREEKANTH V INDURTIMercy Arroyo Grande HospitalStart: 09-29-2017 End: 65-99-1927Zvtpbarov department patient visitNone ProviderFacility:[facility] HospitalStart: 06-07-2017 End: 96-28-2714Oxupmcadv department patient visitLutheran HospitalStart: 05-27-2017 End: 76-92-6611Bvfaqdunc department patient visitLutbarrow neurological institutean Hospital Procedures DateProcedureProcedure DetailPerforming ClinicianStart: 60-89-9561Qcitr culture Sulaiman Ryjavierchastity DO Work Phone: Start: 92-55-2260FKA of headDavid Degroh DO Work Phone: Start: 97-22-7697Lmftg chest X-rayDavid Ryroh DO Work Phone: Start: 49-63-1903DD angiography of headDavid Degroh DO Work Phone: Start: 11-45-2298DI angiography of neck vesselsDavid Ryroh DO Work Phone: Start: 36-20-7520FQ of head without contrastDavid Degroh DO Work Phone: Start: 43-35-5056LT of head without contrastDO Sulaiman Feldman Work Phone: Start: 53-99-1039Hggcz chest X-rayDO Sulaiman Feldman Work Phone: Start: 55-69-2752Zr lumbar spine w/o contrast material Start: 38-84-9062NZ OPIOID CONTAINING MEDICATIONSStart: 77-28-0367HHRSXHDNG PATIENTSREEKANTH INDURTIStart: 57-44-1806GBK 12-LEADSREEKANTH INDURTIStart: 97-36-6516AJW WITH AUTO DIFFERENTIALSREEKANTH INDURTIStart: 01-30-2018 COMPREHENSIVE METABOLIC PANELSREEKANTH INDURTIStart: 95-04-3857Jwqlj panel ELIAN INDURTIStart: 64-50-4713H2XQAZWWTKN INDURTIStart: 05-24-9141E0 ELIAN INDURTIStart: 63-90-5922IZT WITH REFLEXSREEKANTH INDURTIStart: 22-71-7942TU W/REFLEX CULTURESREEKANTH INDURTIStart: 84-95-9839DIKUH DRUG SCREEN ELIAN INDURTIStart: 13-91-3417RY CONSULT TO HISTORY AND PHYSICALSREEKANTH INDURTIStart: 59-26-7186ODAMCHGBWDNBA NURSING CARE ORDER (SPECIFY)ELIAN INDURTIStart: 51-18-2253YXQFP SIGNSSREEKANTH INDURTIStart: 56-81-2373YPSV CODE ELIAN INDURTIStart: 39-98-1660MYUOPKS STATUS (DIRECT)ELIAN INDURTIStart: 88-60-1056FXBN GENERALSREEKANTH INDURTI Plan of Treatment DateCare ActivityDetailAuthorStart: 04-60-0765IsovzesmnAshtabula [facility] Center Start: 20-23-5263Nwtdaxhp to palliative care physicianProtestant Hospitaltart: 43-56-6892Fsxkbyhk to psychiatristProtestant Hospitaltart: 88-25-8067MzajnnsgawhyPderpscxzProtestant Hospitaltart: 08-11-2025 End: 31-74-3537NmgjzxxajProtestant Hospitaltart: 29-37-7450EM Chest Single viewProtestant Hospitaltart: 17-47-2619ZbiqqtmumProtestant Hospitaltart: 50-45-8382HE Chest Single [facility]: 65-04-1186FefyixsgcProtestant Hospitaltart: 46-94-1430KK Chest Single viewProtestant Hospitaltart: 26-31-5647LbawzbiptProtestant Hospitaltart: 66-67-6417HR Chest Single viewProtestant Hospitaltart: 09-82-9772YgjydcsszSt. Vincent Hospital CenterStart: 00-22-1265DV Chest Single viewSt. Vincent Hospital CenterStart: 08-06-2025 [facility] CenterStart: 21-87-7961YZ Chest Single viewSt. Vincent Hospital CenterStart: 81-46-4254MmclpvdclSt. Vincent Hospital CenterStart: 67-03-1907RS Chest Single viewSt. Vincent Hospital CenterStart: 2025 [facility] CenterStart: 29-25-6403LS Chest Single viewSt. Vincent Hospital CenterStart: 27-57-4964RrinjlrmpSt. Vincent Hospital CenterStart: 35-02-3782RyuafkmemSt. Vincent Hospital CenterStart: 69-65-9778QwrdbmzuoSt. Vincent Hospital CenterStart: 19-76-8043LhikkilbfSt. Vincent Hospital CenterStart: 56-03-7632Wgfmzyqeas procedureSt. Vincent Hospital CenterStart: 07-31-2025 Urine cultureSt. Vincent Hospital CenterStart: 84-58-3951Stxwroju to neurologMiami Valley Hospital CenterStart: 97-52-8078Kbrzqyttgpt of substanceProtestant Hospitaltart: 07-31-2025 End: 03-07-6752QpmsxnjhdSt. Vincent Hospital CenterStart: 02-35-6101Tbufeduusllr St[facility] CenterStart: 25-39-8903Bikxpawz admissionSt. Vincent Hospital CenterStart: 76-18-0328Lvbvyafl to cardiologistSt. Vincent Hospital CenterStart: 55-17-7346Cyauuqnh identified in Urine by Culture Urine CultureSt. Vincent Hospital CenterStart: 70-78-6336Svabc culture [facility] CenterStart: 76-20-0685IhbwfbgzcSt. Vincent Hospital CenterStart: 43-95-7244OhnkqnopnSt. Vincent Hospital CenterStart: 06-10-2025 [facility] CenterStart: 72-47-1994FgzwvvbirSt. Vincent Hospital CenterStart: 83-08-8364Enwqlixyye procedureAshtabula County Medical Center Start: 07-32-2770Kzcmddnf to neurologBluffton Hospitaltart: 06-07-2025 End: 55-93-9624DejimrwauProtestant Hospitaltart: 43-24-9518Rjryzbnbovzw [facility] Hospitaltart: 16-16-4771Olyemeul admissionProtestant Hospitaltart: 70-17-8107Bzxvydwt to cardiac rehabilitation programProtestant Hospitaltart: 14-29-2646LfcjjrcheProtestant Hospitaltart: 95-78-0456Bcjganrbhi procedureProtestant Hospitaltart: 41-62-8977YAF of headMR head/brain wo/w [facility], Beachwoodtart: 72-97-6958XqbdczrkqSt. Vincent Hospital CenterStart: 71-96-5988Cqxkpaxxwo procedureProtestant Hospitaltart: 11-17-2024 [facility]: 80-26-9104Knalvlor to property utilization manager [facility]: 47-47-8769Jirdovpk therapy procedure [facility]: 84-24-6985Pqvjdtdh to occupational therapistProtestant Hospitaltart: 66-96-9705Ndzsrcgm to speech and language therapy serviceProtestant Hospitaltart: 11-17-2024 Referral to neurologistProtestant Hospitaltart: 11-17-2024 Hospital admissionProtestant Hospitaltart: 27-67-0300FppordctuProtestant Hospitaltart: 74-76-7144Lmxefkyelvxm consultation with patient [facility]: 94-44-7534RmhfbfcpeProtestant Hospitaltart: 10-19-0310Jfyebzvf to rehabilitation physicianProtestant Hospitaltart: 10-00-3773Pzfolhkhkhglie of prophylactic treatmentProtestant Hospitaltart: 00-55-4123MhnrbieliProtestant Hospitaltart: 75-53-1161BbxjvgxafuyuVvdamldsiProtestant Hospitaltart: 05-01-2024 Hospital admissionAs[facility] CenterAmphetamines [Presence] in Urine by Screen methodAshtabula County Medical CenterAnion gap measurement [facility] CenterBarbiturates [Presence] in Urine by Screen methodAshtabula County Medical CenterBasophils [#/volume] in Blood by Automated countAshtabula County Medical CenterBasophils/100 leukocytes in Blood by Automated [facility] SystemBenzodiazepines [Presence] in UrineAshtabula County Medical CenterBenzoylecgonine [Presence] in UrineAshtabula County Medical CenterCannabinoids [Presence] in Urine by Screen methodAshtabula County Medical CenterDrugs identified in UrineAshtabula County Medical CenterEosinophils/100 leukocytes in Blood by Automated count [facility] CenterErythrocyte distribution width [Ratio] by Automated [facility] SystemErythrocytes [#/volume] in Blood [facility] CenterGlomerular filtration rate [Volume Rate/Area] in Serum, Plasma or Blood by CreatinineAshtabula County Medical Center Hematocrit [Volume Fraction] of BloodAshtabula County Medical CenterHemoglobin [Mass/volume] in BloodAshtabula County Medical CenterLegionella pneumophila Ag [Presence] in UrineAshtabula County Medical CenterLeukocytes [#/volume] corrected for nucleated erythrocytes in Blood by Automated counAshtabula County Medical CenterLeukocytes [#/volume] in BloodAshtabula County Medical CenterLymphocytes [#/volume] in Blood by Automated countAshtabula County Medical CenterLymphocytes/100 leukocytes in Blood by Automated [facility] SystemMCH [Entitic mass] by Automated countAshtabula County Medical CenterMCHC [Mass/volume] by Automated [facility] SystemMCV [Entitic volume] by Automated [facility] Monocytes [#/volume] in Blood by Automated countAshtabula County Medical CenterMonocytes/100 leukocytes in Blood by Automated countAshtabula County Medical CenterNeutrophils [#/volume] in Blood by Automated countAshtabula County Medical CenterNeutrophils/100 leukocytes in Blood by Automated count [facility] CenterNucleated erythrocytes [Presence] in Blood by Automated [facility] SystemOpiates [Presence] in Urine [facility] CenterPatient EducationLicking Memorial Hospital [facility] Work Phone: [facility] referralSt. [facility] Work Phone: Phencyclidine [Presence] in UrineAshtabula County Medical CenterPlatelet mean volume [Entitic volume] in Blood by Automated count [facility] CenterPlatelets [#/volume] in [facility] Systempecimen source [Identifier] of Unspecified specimenProtestant Hospitaltreptococcus pneumoniae Ag [Presence] in Unspecified specimenAshtabula County Medical CenterThiamine [Moles/volume] in Blood [facility] CenterThyroglobulin Ab [Units/volume] in Serum or PlasmaAshtabula County Medical CenterThyroperoxidase Ab [Units/volume] in Serum or PlasmaAd[facility]Health [facility] Payers DatePayer CategoryPayerPolicy [id number] 2025Self-pay [id number] [id number] [id number] [id number] 2.0.1.496790.3.579.2.5[id number] 2.0.1.615425.3.579.2.9[id number] 2.0.1.324755.3.57[id number] 2.0.1.043346.3.57[id number] 2.840.1.306725.3.579.2.732MedicaidMedicaid Out of [id number] [facility] [id number] 2..840.1.687862.3.579.2.387Henwemh37287298 2.16.840.1.286839.3.579.2.531 [id number] 2.16.840.1.887039.3.579.2.673Sfmfeqi47536658 2..840.1.369572.3.579.2.531 Social History DateTypeDetailFacilityStart: 05-06-2024 End: 26-98-5701Lwumbdq smoking status NHISCurrent Heavy tobacco smokerProtestant Hospitaltart: 22-36-0458Hee Assigned At [facility]: 11-18-2024 End: 54-63-8180OuoUwtq (finding)Protestant Hospitaltart: 11-18-2024 End: 33-04-4231Ymlzpro smoking status NHISUnknown if ever smokedProtestant Hospitaltart: 16-24-3335ZURU Follow upSDOH Follow [facility] Work Phone: Medical Equipment Procedure CodeEquipment CodeEquipment Original TextEquipment IdentifierDatesCL STENT XENIA FRONTIER 4.0 X 30FDAStart: 98-51-0185BS STENT XENIA FRONTIER 4.0 X 30 FDAStart: 06-07-2025 Goals DatePatient GoalDesired Activity/State Functional Status ZosnWxmchmhuiqKahioiUwpdadhr39-89-5761Eluxfepzqf statusPatient at Baseline [facility] Work Phone: [phone]) 182-662506258692-23-5599Xbpchzrvwz statusPatient at Baseline [facility] Work Phone: Mental Status NcxyMoudhragajMxduorNsqkqtse85-70-1548Kvhkqhxmu functionCognitive Status Patient at BaselineVeterans Health Administration Work Phone: 1(396) 173-534106087079-10-4770Pmqmwtlgd functionCognitive Status Patient at BaselineVeterans Health Administration Work Phone: Clinical Notes 05-02-2024 to 06-07-2025 Note Date & KpquKmvqNabeblrx19-61-5648 Evaluation note* Diagnosis Onset Date Resolution Status Admit Date History of seizure disorder acuteJuly 2024 8:22amPolysubstance abuseacuteJuly 2024 8:22amST elevation myocardial infarction (STEMI) of inferior wallacuteJuly 2024 8:22am [facility] Work Phone: 1(328) 905-865807-26-2025 Evaluation note* Diagnosis Onset Date Resolution Status [...] 7:25pmElevated troponinresolvedSeptember 2024 7:25pm SeizureresolvedSeptember 2024 7:25pm [facility] Work Phone: 1(399) 360-705107-26-2025 Evaluation note* Diagnosis Onset Date Resolution Status [...] 31, 2025 7:25pmCAD (coronary artery disease)acuteSeptember 2024 7:25pmCounseling regarding advance directives and goals of careacute July 31, 2025 7: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 July 31, 2025 7:25pmHistory of noncompliance with medical treatmentacute July 31, 2025 7:25pmHistory of seizure disorderacuteSeptember 2024 7:25pmPolysubstance abuseacuteSeptember 2024 7:25pmStented coronary artery acuteSeptember 2024 7:25pmElevated troponinresolvedSeptember 2024 7:25pmSeizureresolvedSeptember 2024 7:25pm [facility] Work Phone: 1(735) 380-156701-08-2025 Progress note Author Yamila Donald [facility] Medical CenterNote Date/TimeJanuary 2024 7:21pm[place] [address] Hospitalist Progress Note Signed Patient: Aaron Olivarez MR#: [id number] : 1960 Acct:[id number] Age/Sex: 64 / M Adm Date: 5 Loc: Room: [address] [place] [address] Type: ADM IN Attending Dr: Yamila Donald [...] signed by Yamila Donald MD> 11/20/24 1921 [facility] Work Phone: 1(844) 227-960101-08-2025 [place] [address] Hospitalist Progress Note Signed Patient: Aaron Olivarez MR#: [id number] : 1960 Acct:[id number] Age/Sex: 64 / M Adm Date: 5 Loc: Room: [address] [place] [address] Type: ADM IN Attending Dr: Yamila Donald [...] 11/20/24 17:05 11/20/24 17:05 11/20/24 17:05 11/20/24 17:11/20/24 17:05 11/18/24 00:00 Narrative: GEN: NAD, not [...] Donald MD 11/20/24 1723 Signed By: 11/20/241920 [facility]01-08-2025 Progress note Author Yamila Donald [facility] Medical CenterNote Date/TimeJanuary 2024 3:02[place] [address] Hospitalist Progress Note Signed Patient: Aaron Olivarez MR#: [id number] : 1960 Acct:[id number] Age/Sex: 64 / M Adm Date: 5 Loc: 4C Room: 8G7147-2 Type: ADM IN Attending Dr: Yamila Donald [...] Syringe IV-PUSH 11/17/25 12:59 10 ml Q8H COBRY Administration Sodium Chloride 0 ml 11/17/24 14:00 [...] Plan Documented By: Yamila Donald MD 11/19/24 3924 Signed By: <Electronically signed by Yamila Donald MD> 11/20/24 0305 [facility] Work Phone: 1(216) 919-255701-08-2025 [place] [address] Hospitalist Progress Note Signed Patient: Aaron Olivarez MR#: [id number] : 1960 Acct:[id number] Age/Sex: 64 / M Adm Date: 5 Loc: Room: [address] [place] [address] Type: ADM IN Attending Dr: Yamila Donald [...] Donald MD 11/19/242100 Signed By: 11/20/24 0302 [facility]01-07-2025 Progress note Author Neville Bush [facility] CenterNote Date/TimeJanuary 2024 6:02pm[place] [address] Neurology Progress Note Signed Patient: Aaron Olivarez MR#: [id number] : 1960 Acct:[id number] Age/Sex: 64 / M Adm Date: 5 Loc: Room: [address] [place] [address] Type: ADM IN Attending Dr: Yamila Donald [...] follow-up. Documented By: Neville Bush DO 11/19/24 1753 Signed By: <Electronically signed by Neville Bush DO> 11/19/24 1902 [facility] Work Phone: 1(731) 180-110901-07-2025 [place] [address] Neurology Progress Note Signed Patient: Aaron Olivarez MR#: [id number] : 1960 Acct:[id number] Age/Sex: 64 / M Adm Date: 5 Loc: Room: [address] [place] [address] Type: ADM IN Attending Dr: Yamila Donald [...] DO 11/19/24 1759 Signed By: 11/19/24 1802 [facility]01-07-2025 Progress note Author Yamila Donald [facility] Medical CenterNote Date/TimeJanuary 2024 3:10am[place] [address] Hospitalist Progress Note Signed Patient: Aaron Olivarez MR#: [id number] : 1960 Acct:[id number] Age/Sex: 64 / M Adm Date: 5 Loc: Room: [address] [place] [address] Type: ADM IN Attending Dr: Yamila Donald [...] Lactated Ringers IV 11/18/24 17:34 70 mls/hr .[id number] [facility] Levetiracetam 500 mg/ Dextrose 105 [...] signed by Yamila Donald MD> 11/19/24 0310 [facility] Work Phone: 1(637) 956-708401-07-2025 [place] [address] Hospitalist Progress Note Signed Patient: Aaron Olivarez MR#: [id number] : 1960 Acct:[id number] Age/Sex: 64 / M Adm Date: 5 Loc: Room: [address] [place] [address] Type: ADM IN Attending Dr: Yamila Donald [...] 16:00 11/18/24 16:00 11/18/24 16:00 11/18/24 16:11/18/24 16:11/18/24 00:00 Narrative: GEN: NAD, not [...] Lactated Ringers IV 11/18/24 17:34 70 mls/hr .[id number] [facility] Levetiracetam 500 mg/ Dextrose 105 [...] MD 11/18/24 1646 Signed By: 11/19/24 0310 [facility]01-06-2025 Consult note Author Neville Bush [facility] CenterNote Date/TimeJanuary 2024 5:44[place] [address] Neurology Consult Note Signed Patient: Aaron Olivarez MR#: [id number] : 1960 Acct:[id number] Age/Sex: 64 / M Adm Date: 5 Loc: Room: [address] [place] [address] Type: ADM IN Attending Dr: Yamila Donald MD Copies to: DO Sulaiman Mosquera DO Marwan Wassouf, MD~ HPI Consult Date: 11/18/24 Dinner Cook: Neville Bush DO [facility] Medical History Heavy smoker Heroin use H/O ETOH abuse COPD (chronic obstructive pulmonary disease) Social History Smoking Status: Unknown if ever smoked Substance Use Type: Marijuana, Heroin and Methamphetamine Social History Comments: Moved from [place] to [place] to live with sonLamin. Meds Medications and [...] Dung Chakraborty M.D.11/17/2024 1:26 PM Dictation Location: [place] [address] Assessment/Plan (1) Seizure: Plan CONSULT REASON: Seizure, [...] <Electronically signed by Neville Bush DO> 11/18/24 1404 [facility] Work Phone: 1(342) 332-708701-06-2025 Consult note Author Julito Mosley [facility] CenterNote Date/TimeJanuary 2024 4:27pm[place] [address] Cardiology Consult Note Signed Patient: Aaron Olivarez MR#: [id number] : 1960 Acct:[id number] Age/Sex: 64 / M Adm Date: 5 Loc: Room: [address] [place] [address] Type: ADM INOo Attending Dr: Yamila Donald [...] negative unless noted below or in HPI [facility] Medical History Heavy smoker Heroin use H/O ETOH abuse COPD (chronic obstructive pulmonary disease) Social History Smoking Status: Unknown if ever smoked Substance Use Type: Marijuana, Heroin and Methamphetamine Social History Comments: Moved from [place] to [place] to live with son, Lamin. Meds Medications [...] H 98 Room Air 2 11/18/24 14:11/18/24 14:26 11/18/24 14:11/18/24 14:11/18/24 14:11/18/24 14:11/18/24 00:00 [...] x10E3/uL Lymph # (Auto) 1.4 (1.00-4.8) x10E3/uL Luce # (Auto) 0.6 (0.0-0.8) x10E3/uL Eos # [...] @ 70 1000 / 1000 mls/hr IV .[id number] [facility] Rx#: [id number] levETIRAcetam 500 mg In 105 / 105 Dextrose 5 % in Water 100 ml @ 420 mls/hr IV BID [facility] Rx#: [id number] Output: Urine 500 / 500 Other: # [...] future. Documented By: Julito Mosley MD 05/07 1610 Signed By: <Electronically signed by Julito Mosley MD> 11/18/24 1622 [facility] Work Phone: 1(792) 632-188601-06-2025 [place] [address] Neurology Consult Note Signed Patient: Aaron Olivarez MR#: [id number] : 1960 Acct:[id number] Age/Sex: 64 / M Adm Date: 5 Loc: Room: [address] [place] [address] Type: ADM IN Attending Dr: Yamila Donald MD Copies to: DO Sulaiman Mosquera DO Marwan Wassouf, MD~ HPI Consult Date: 11/18/24 Dinner Cook: Neville Bush DO [facility] Medical History Heavy smoker Heroin use H/O ETOH abuse COPD (chronic obstructive pulmonary disease) Social History Smoking Status: Unknown if ever smoked Substance Use Type: Marijuana, Heroin and Methamphetamine Social History Comments: Moved from [place] to [place] to live with sonLamin. Meds Medications and [...] Dung Chakraborty M.D.11/17/2024 8:59 AM Dictation Location: [place] [address] Chest X-Ray 11/17/24 12:57 IMPRESSION: No acute cardiopulmonary pathology. Impression dictated by: Dung Chakraborty M.D.11/17/2024 1:26 PM Dictation Location: [place] [address] Assessment/Plan (1) Seizure: Plan CONSULT REASON: Seizure, [...] Bush DO 11/18/241737 Signed By: 11/18/24 1744 [facility]01-06-2025 [place] [address] Cardiology Consult Note Signed Patient: Aaron Olivarez MR#: [id number] : 1960 Acct:[id number] Age/Sex: 64 / M Adm Date: 5 Loc: Room: [address] [place] [address] Type: ADM INOo Attending Dr: Yamila Donald [...] negative unless noted below or in HPI [facility] Medical History Heavy smoker Heroin use H/O ETOH abuse COPD (chronic obstructive pulmonary disease) Social History Smoking Status: Unknown if ever smoked Substance Use Type: Marijuana, Heroin and Methamphetamine Social History Comments: Moved from [place] to [place] to live with son, Lamin. Meds Medications [...] x10E3/uL Lymph # (Auto) 1.4 (1.00-4.8) x10E3/uL Luce # (Auto) 0.6 (0.0-0.8) x10E3/uL Eos # [...] @ 70 1000 / 1000 mls/hr IV .[id number] [facility] Rx#: [id number] levETIRAcetam 500 mg In 105 / 105 Dextrose 5 % in Water 100 ml @ 420 mls/hr IV BID [facility] Rx#: [id number] Output: Urine 500 / 500 Other: # [...] MD 05/07 1612 Signed By: 11/18/24 1627 [facility]01-06-2025 Evaluation note* Diagnosis Onset Date Resolution Status Admit Date Acute CVA (cerebrovascular accident) acuteJanuary 2024 1:02pmAltered mental statusacuteJanuary 2024 1:02pm SeizureacuteJanuary 2024 1:02pmT wave inversion in EKGacuteJanuary 2024 1:02pm [facility] Work Phone: 1(992) 406-966901-05-2025 Progress note Author Chaz Frey [facility] CenterNote Date/TimeJanuary 2024 2:[address]pm[address] [address] Progress Note Signed Patient: Aaron Olivarez MR#: [id number] : 1960 Acct:[id number] Age/Sex: 64 / M Adm Date: 5 Loc: 4C Room: 5P7409-3 Type: ADM INOo Attending Dr: Chaz Frey [...] signed by Chaz Frey MD> 11/17/24 1400 [facility] Work Phone: 1(469) 382-225401-05-2025 History and physical note Author Chaz Frey [facility] CenterNote Date/TimeJanuary 2024 1:11pm[place] [address] Hospitalist H&P Signed Patient: Aaron Olivarez MR#: [id number] : 1960 Acct:[id number] Age/Sex: 64 / M Adm Date: 5 Loc: Room: 6H7463-7 Type: ADM INOo Attending Dr: Chaz Frey MD Copies to: DO Chaz Barnard MD~ [facility] DATE OF EXAMINATION: 11/17/24 CHIEF COMPLAINT: Seizure [...] was made not to transfer him to [place] for thrombectomy. On-call stroke team recommended admission [facility] for neurological andseizure workup with [...] patient had stroke before or seizure history. [facility] Medical History Heavy smoker Heroin use H/O ETOH abuse COPD (chronic obstructive pulmonary disease) Social History Smoking Status: Heavy tobacco smoker Social History Comments: Moved from [place] to [place] to live with son, Lamin. Meds Medications [...] % (Auto) 4.4 % (.) 11/17/24 08: Luce % (Auto) 3.3 % (.) 11/17/24 08: Eos % (Auto) 0.1 % (.) 11/17/24 08: Baso % (Auto) 0.4 % (.) 11/17/24 08: Nucleat RBC Rel Count 0.1 /100 WBC (0-0.5) 11/17/24 08: Neut # (Auto) 9.2 x10E3/uL (1.8-7.7) H 11/17/24 08: Lymph # (Auto) 0.4 x10E3/uL (1.00-4.8) L 11/17/24 08: Luce # (Auto) 0.3 x10E3/uL (0.0-0.8) 11/17/24 08: [...] admit him to the medical floor at [facility] I started him on aspirin and statin. [...] signed by Chaz Frey MD> 11/17/24 1311 [facility] Work Phone: 1(633) 974-208301-05-2025 [place] [address] Progress Note Signed Patient: Aaron Olivarez MR#: [id number] : 1960 Acct:[id number] Age/Sex: 64 / M Adm Date: 5 Loc: Room: [address] [place] [address] Type: ADM INOo Attending Dr: Chaz Frey [...] MD 11/17/24 1359 Signed By: 11/17/24 1400 [facility]01-05-2025 [place] [address] Hospitalist H&P Signed Patient: Aaron Olivarez MR#: [id number] : 1960 Acct:[id number] Age/Sex: 64 / M Adm Date: 5 Loc: Room: 0P2970-9 Type: ADM INOo Attending Dr: Chaz Frey [...] was made not to transfer him to [place] for thrombectomy. On-call stroke team recommended admission [facility] for neurological andseizure workup with [...] patient had stroke before or seizure history. [facility] Medical History Heavy smoker Heroin use H/O ETOH abuse COPD (chronic obstructive pulmonary disease) Social History Smoking Status: Heavy tobacco smoker Social History Comments: Moved from [place] to [place] to live with son, Lamin. Meds Medications [...] % (Auto) 4.4 % (.) 11/17/24 08:28 Luce % (Auto) 3.3 % (.) 11/17/24 08:28 Eos % (Auto) 0.1 % (.) 11/17/24 08:28 Baso % (Auto) 0.4 % (.) 11/17/24 08:28 Nucleat RBC Rel Count 0.1 /100 WBC (0-0.5) 11/17/24 08:28 Neut # (Auto) 9.2 x10E3/uL (1.8-7.7) H 11/17/24 08:28 Lymph # (Auto) 0.4 x10E3/uL (1.00-4.8) L 11/17/24 08:28 Luce # (Auto) 0.3 x10E3/uL (0.0-0.8) 11/17/24 08:28 [...] 08: Total Bilirubin 0.6 mg/dl (0.3-1.0) 11/17/24 08:28 AST 24 U/L (13-39) 11/17/24 08:28 ALT 12 U/L (7-52) 11/17/24 08:28 Alkaline Phosphatase 95 U/L (34-104) 11/17/24 08:28 Total Creatine Kinase 134 U/L (30-223) 11/17/24 08:28 Troponin I High Sens 21.1 pg/mL (0.0-20.0) H 11/17/24 08:28 Total Protein 6.7 gm/dL (6.4-8.9) 11/17/24 08:28 Albumin 4.2 gm/dL (3.5-5.7) 11/17/24 08: Globulin 2.5 gm/dL 11/17/24 08: Albumin/Globulin Ratio 1.7 11/17/24 08: Prolactin 14.22 ng/mL (2.64-13.13) H 11/17/24 08:28 [...] admit him to the medical floor at [facility] I started him on aspirin and statin. [...] MD 11/17/24 1301 Signed By: 11/17/24 1311 [facility]01-05-2025 Evaluation note* Diagnosis Onset Date Resolution Status Admit Date Acute CVA (cerebrovascular accident) acuteJanuary 2024 9:54amAltered mental statusacuteJanuary 2024 9:54am SeizureacuteJanuary 2024 9:54am [facility] Work Phone: 1(395) 625-207501-05-2025 Radiology [facility] Main Rule [address] [place] [address] CT Scan Report Signed Patient: Aaron Olivarez MR#: [id number] : 1960 Acct:[id number] Age/Sex: 64 / M ADM Date: 5 Loc: ER Room: Type: PRE ER Attending Dr: Copies to: Jamin Sepulveda DO~ Ordering Provider: Jamin Sepulveda DO Date of Service: 11/17/24 CT/CT angio head: cva ([id number]) CT/CT angio neck: cva CT angio head, [...] Dung Chakraborty M.D.11/17/2024 8:59 AM Dictation Location: [place] [address] Transcribed By: YNES 11/17/24858 Dictated By: Dung Chakraborty II, MD 11/17/24 0852 Signed By: 11/17/24858 [facility] Work Phone: 1(517) 775-483701-05-2025 Radiology Diagnostic study [facility] Main Rule [address] [place] [address] CT Scan Report Signed Patient: Aaron Olivarez MR#: [id number] : 1960 Acct:[id number] Age/Sex: 64 / M ADM Date: 5 [...] Dung Chakraborty M.D.11/17/2024 8:43 AM Dictation Location: [facility] Transcribed By: YNES 11/17/24 0843 Dictated By: Dung Chakraborty II, MD 11/17/24 0837 Signed By: 11/17/2443 [facility] Work Phone: 1(771) 899-590909-01-2024 NoteADDENDUM: Results were called to the ordering [...] Valerio MD 07/14/24 Edited Result - [facility]06-24-2024 Discharge summary Author Kiko Maldonado [facility] May 06, 2024 2:21pmNote Date/TimeJune 2023 11:44[place] [address] Discharge Summary Signed Patient: Aaron Olivarez MR#: [id number] : 1960 Acct:[id number] Age/Sex: 63 / M Adm Date: 4 Loc: Room: [address] [place] [address]: Kiko Maldonado MD Copies to: [...] He presented to the emergency department at [facility] on May 01, with complaints of [...] signed by Kiko Maldonado MD> 05/06/24 1421 [facility] Work Phone: 1(778) 156-188506-24-2024 Progress note Author Thanh Paris [facility] May 06, 2024 10:16amNote Date/TimeJune 2023 10:16[place] [id number] Pulmonology Progress Note Signed Patient: Aaron Olivarez MR#: [id number] : 1960 Acct:[id number] Age/Sex: 63 / M Adm Date: 4 Loc: Room: [address] [place] [address] Type: ADM IN Attending Dr: Janae Jose MD Copies to: ~ Date of Service: 05/06/2024 Subjective Subjective Narrative: Patient voices no complaints at the time my evaluation. He is very interested in being discharged today as he can relax at home as opposed to being in the hospital. He knows he is in a hospital butdoes not know that he is at [facility] in [place]. He also knows it is 2023. Exam [...] signed by MD Thanh Paris> 05/06/24 1016 [facility] Work Phone: 1(123) 676-441006-23-2024 Progress note Author Janae Jose [facility] May 05, 2024 1:27pmNote Date/TimeJune 2023 1:22pm[place] [address] Hospitalist Progress Note Signed Patient: Aaron Olivarez MR#: [id number] : 1960 Acct:[id number] Age/Sex: 63 / M Adm Date: 4 Loc: Room: [address] [place] [address] Type: ADM IN Attending Dr: Janae Jose [...] down without significant elevation. Suspecting type II ID from hypoxia. Echocardiogram showing preserved ejection fraction with mild LVH. No wall motion abnormality seen. EKG negative for acute ischemic changes. Documented By: Janae Jose MD 05/05/24 6796 Signed By: <Electronically signed by Janae Jose MD> 05/05/[address] [facility] Work Phone: 1(414) 412-478906-23-2024 Progress note Author Víctor Agrawal [facility] May 05, 2024 11:29amNote Date/TimeJune 2023 11:[address] [address] Pulmonology Progress Note Signed Patient: Aaron Olivarez MR#: [id number] : 1960 Acct:[id number] Age/Sex: 63 / M Adm Date: 4 Loc: Room: [address] [place] [address] Type: ADM IN Attending Dr: Janae Jose [...] edema, no clubbing. 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 [...] signed by Víctor Agrawal MD> 05/05/24 1129 [facility] Work Phone: 1(882) 693-913706-22-2024 Progress note Author Janae Jose [facility] May 04, 2024 12:19pmNote Date/TimeJune 2023 12:13pm[place] [address] Hospitalist Progress Note Signed Patient: Aaron Olivarez MR#: [id number] : 1960 Acct:[id number] Age/Sex: 63 / M Adm Date: 4 Loc: Room: [address] [place] [address] Type: ADM IN Attending Dr: Janae Jose [...] down without significant elevation. Suspecting type II ID from hypoxia. Echocardiogram showing preserved ejection fraction with mild LVH. No wall motion abnormality seen. Negative for acute ischemic changes. Documented By: Janae Jose MD 05/04/241209 Signed By: <Electronically signed by Janae Jose MD> 05/04/24 1219 [facility] Work Phone: 1(263) 656-221206-22-2024 Progress note Author Víctor Agrawal [facility] May 04, 2024 12:03pmNote Date/TimeJune 2023 11:54[place] [address] Pulmonology Progress Note Signed Patient: Aaron Olivarez MR#: [id number] : 1960 Acct:[id number] Age/Sex: 63 / M Adm Date: 4 Loc: Room: [address] [place] [address] Type: ADM IN Attending Dr: Janae Jose [...] Musculoskeletal: No edema Skin: No skin rash JAVASCRIPT ENGINEER: Drowsy and confused, does not interact or verbalize much. Unable to fully assess neurostatus due to current clinical condition Objective Intake and Output I&O - Last 24 Hours: Intake & Output 05/03/24 05/04/24 05/04/24 23:59 07:59 15:59 Intake Total 272 / 1044 400 / 400 Output Total 300 / 1000 200 / 200 Balance - 200 / 200 Weight 77.2 kg Labs 06/22/24 03:22 05/04/24 03:22 Assessment/Plan Assessment/Plan (1) Acute [...] signed by Víctor Agrawal MD> 05/04/24 1203 [facility] Work Phone: 1(607) 828-365706-21-2024 Progress note Author Víctor Agrawal [facility] May 03, 2024 1:57pmNote Date/TimeJune 2023 1:57pm[place] [address] Pulmonology Progress Note Signed Patient: Aaron Olivarez MR#: [id number] : 1960 Acct:[id number] Age/Sex: 63 / M Adm Date: 4 Loc: Room: [address] [place] [address] Type: ADM IN Attending Dr: Janae Jose [...] Musculoskeletal: No edema Skin: No skin rash JAVASCRIPT ENGINEER: Drowsy, 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 No focal deficits Objective [...] <Electronically signed by Víctor Agrawal MD> 05/03/24 5287 [facility] Work Phone: 1(709) 867-424506-21-2024 Progress note Author Janae Jose [facility] May 03, 2024 12:57pmNote Date/TimeJune 2023 12:57pm[place] [address] Hospitalist Progress Note Signed Patient: Aaron Olivarez MR#: [id number] : 1960 Acct:[id number] Age/Sex: 63 / M Adm Date: 4 Loc: Room: [address] [place] [address] Type: ADM IN Attending Dr: Janae Jose [...] Name John PRN Reason Stop Dose Admin Acetaminophen 650 [...] down without significant elevation. Suspecting type II ID from hypoxia. Pending echocardiogram to assess LV function and wall motion. Will obtain twelve-lead EKG. Documented By: Janae Jose MD 05/03/24 1247 Signed By: <Electronically signed by Janae Jose MD> 05/03/[address] [facility] Work Phone: 1(800) 437-963906-20-2024 Progress note Author Janae Jose [facility] May 02, 2024 1:49pmNote Date/TimeJune 2023 1:[place] [id number] Event Note Signed Patient: Aaron Olivarez MR#: [id number] : 1960 Acct:[id number] Age/Sex: 63 / M Adm Date: 4 Loc: Room: [address] [place] [address] Type: ADM IN Attending Dr: Janae Jose [...] signed by Janae Jose MD> 05/02/[address] [facility] Work Phone: 1(388) 880-777006-20-2024 Consult note Author Víctor Agrawal [facility] May 02, 2024 1:47pmNote Date/TimeJune 2023 1:[address]pm[address] [address] Pulmonology Consult Note Signed Patient: Aaron Olivarez MR#: [id number] : 1960 Acct:[id number] Age/Sex: 63 / M Adm Date: 4 Loc: Room: [address] [place] [address] Type: ADM IN Attending Dr: Janae Jose [...] and history of hypertension was transferred from [place] ED directly into ICU. Apparently, patient was e xperiencing productive cough with thick yellow phlegm and increased shortness of breath prior to his presentation to [place] ED. Patient was found by familylethargic and difficult to arouse, oxygen saturation was 70% on room air, venousblood gas showed pCO2 of 80 with pH of 7.32. Patient refused BiPAP. Chest CT angiogram reported negative for PE, showed right lower lobe consolidation consistent with pneumonia. [facility] Social History Smoking Status: Heavy tobacco smoker [...] Musculoskeletal: No edema Skin: No skin rash JAVASCRIPT ENGINEER: Drowsy, no focal deficits Results - [...] signed by Víctor Agrawal MD> 05/02/24 1347 [facility] Work Phone: 1(727) 684-960906-20-2024 History and physical note Author Magdy Douglass [facility] May 02, 2024 7:12amNote Date/TimeJune 2023 7:11am[place] [address] Hospitalist H&P Signed Patient: Aaron Olivarez MR#: [id number] : 1960 Acct:[id number] Age/Sex: 63 / M Adm Date: 4 Loc: Room: [address] [place] [address] Type: ADM IN Attending Dr: Janae Jose MD Copies to: MD Sulaiman Ruggiero DO Mazhar Rahman, MD~ HPI DATE OF EXAMINATION: 05/01/24 CHIEF COMPLAINT: cough, dyspnea, altered mental status HISTORY OF PRESENT ILLNESS: 63 year old man with history of HTN, COPD, tobacco abuse who presented to [place] ED with the above complaints. Per the patient for 2-3 days prior to admission he was having a cough productiveof thick yellow sputum and increasing dyspnea with exertion. On the date of presentation family members went to see thepatient and found that he was lethargic and difficult to arouse so he was brought to [place] ED for evaluation. On arrival there pulse [...] negative except as noted in the HPI [facility] Social History Smoking Status: Heavy tobacco smoker [...] % (Auto) 7.8 % (.) 05/02/24 04:20 Luce % (Auto) 8.2 % (.) 05/02/24 04:20 Eos % (Auto) 0.0 % (.) 05/02/24 04:20 Baso % (Auto) 0.2 % (.) 05/02/24 04:20 Nucleat RBC Rel Count 0.2 /100 WBC (0-0.5) 05/02/24 04:20 Neut # (Auto) 6.3 x10E3/uL (1.8-7.7) 05/02/24 04:20 Lymph # (Auto) 0.6 x10E3/uL (1.00-4.8) L 05/02/24 04:20 Luce # (Auto) 0.6 x10E3/uL (0.0-0.8) 05/02/24 04:20 [...] signed by Magdy Douglass MD> 05/02/[address] [facility] Work Phone: Consult note Author Patricio Galaviz [facility] May 06, 2024 1:01pmNote Date/TimeJune 2023 1:01pm[place] [address] Physiatry (Rehab) Consult Note Signed Patient: Aaron Olivarez MR#: [id number] : 1960 Acct:[id number] Age/Sex: 63 / M Adm Date: 4 Loc: Room: [address] [place] [address] Type: ADM IN Attending Dr: Kiko Maldonado [...] negative unless noted below or in HPI [facility] Medical History Heavy smoker Heroin use H/O ETOH abuse COPD (chronic obstructive pulmonary disease) Social History Smoking Status: Heavy tobacco smoker Social History Comments: Moved from [place] to [place] to live with son, Lamin. Meds Medications [...] chart, including current orders, allied health and hospice consultant notes, labs/imaging and performed fairbanks elements of exam and I formulated the plan of care and facilitated the medical decision making. I completed a substantive portion of this encounter, the medical decision making portion of this note in its entirety, including Allied health note review, nursing note review, hospice consultant note review, discussion with nursing and case management, and more than 50% of my time was spent on counseling and coordination of care, time spent 60 minutes Documented By: Patricio Galaviz MD 05/06/24 1251 Signed By: <Electronically signed by Patricio Galaviz MD> 05/06/24 1301 [facility] Work Phone: Consult note Author Julito Mosley [facility] Date/TimeJanuary 2024 4:27pm[place] [address] Cardiology Consult Note Signed Patient: Aaron Olivarez MR#: [id number] : 1960 Acct:[id number] Age/Sex: 64 / M Adm Date: 5 Loc: Room: [address] [place] [address] Type: ADM INOo Attending Dr: Yamila Donald [...] negative unless noted below or in HPI [facility] Medical History Heavy smoker Heroin use H/O ETOH abuse COPD (chronic obstructive pulmonary disease) Social History Smoking Status: Unknown if ever smoked Substance Use Type: Marijuana, Heroin and Methamphetamine Social History Comments: Moved from [place] to [place] to live with son, Lamin. Meds Medications [...] x10E3/uL Lymph # (Auto) 1.4 (1.00-4.8) x10E3/uL Luce # (Auto) 0.6 (0.0-0.8) x10E3/uL Eos # [...] @ 70 1000 / 1000 mls/hr IV .[id number] [facility] Rx#: [id number] levETIRAcetam 500 mg In 105 / 105 Dextrose 5 % in Water 100 ml @ 420 mls/hr IV BID [facility] Rx#: [id number] Output: Urine 500 / 500 Other: # [...] signed by Julito Mosley MD> 11/18/24 1627 [facility] Work Phone: Consult note Author Neville Bush [facility] CenterNote Date/TimeJanuary 2024 5:44pm[place] [address] Neurology Consult Note Signed Patient: Aaron Olivarez MR#: [id number] : 1960 Acct:[id number] Age/Sex: 64 / M Adm Date: 5 Loc: Room: [address] [place] [address] Type: ADM IN Attending Dr: Yamila Donald MD Copies to: DO Sulaiman Mosquera DO Marwan Wassouf, MD~ HPI Consult Date: 11/18/24 Dinner Cook: Neville Bush DO [facility] Medical History Heavy smoker Heroin use H/O ETOH abuse COPD (chronic obstructive pulmonary disease) Social History Smoking Status: Unknown if ever smoked Substance Use Type: Marijuana, Heroin and Methamphetamine Social History Comments: Moved from [place] to [place] to live with son, Lamin. Meds Medications [...] mg IV twice daily Documented By: Neville Buhs DO 11/18/24 1738 Signed By: <Electronically signed by Neville Bush DO> 11/18/[address] [facility] Work Phone: Evaluation note* Diagnosis Onset Date Resolution Status Acute exacerbation of chronic obstructiv e pulmonary disease (COPD) acuteAcute respiratory failure with hypoxia and hypercapniaacuteAlcohol abuse acuteAlcohol withdrawalacuteCommunity acquired pneumoniaacuteElevated troponin acuteHistory of heroin abuseacuteMetabolic encephalopathyacuteNicotine dependenceacuteRight lower lobe pneumoniaacuteTobacco abuseacuteUncontrolled hypertensionacute [facility] Work Phone: Progress note Author Yamila Donald [facility] Center[facility] Date/TimeJanuary 2024 3:10am[place] [address] Hospitalist Progress Note Signed Patient: Aaron Olivarez MR#: [id number] : 1960 Acct:[id number] Age/Sex: 64 / M Adm Date: 5 Loc: Room: [address] [place] [address] Type: ADM IN Attending Dr: Yamila Donald [...] Lactated Ringers IV 11/18/24 17:34 70 mls/hr .[id number] [facility] Levetiracetam 500 mg/ Dextrose 105 [...] signed by Yamila Donald MD> 11/19/[address] [facility] Work Phone: Progress note Author Neville Bush [facility] CenterNote Date/TimeJanuary 2024 6:02pm[place] [address] Neurology Progress Note Signed Patient: Aaron Olivarez MR#: [id number] : 1960 Acct:[id number] Age/Sex: 64 / M Adm Date: 5 Loc: Room: [address] [place] [address] Type: ADM IN Attending Dr: Yamila Donald [...] <Electronically signed by Neville Bush DO> 11/19/24 0194 [facility] Work Phone: Progress note Author Yamila Donald [facility] Date/TimeJanuary 2024 3:02[place] [address] Hospitalist Progress Note Signed Patient: Aaron Olivarez MR#: [id number] : 1960 Acct:[id number] Age/Sex: 64 / M Adm Date: 5 Loc: Room: [address] [place] [address] Type: ADM IN Attending Dr: Yamila Donald [...] Tablet PO 11/19/25 08:59 Not Given DAILY [facility] Haloperidol Lactate 5 mg 11/18/24 23:27 11/19/24 [...] Tablet PO 11/19/25 08:59 Not Given DAILY [facility] Sodium Chloride 0 ml 11/17/24 [...] signed by Yamila Donald MD> 11/20/24 0302 [facility] Work Phone: Progress note Author Yamila Donald [facility] CenterNote Date/TimeJanuary 2024 7:21pm[place] [address] Hospitalist Progress Note Signed Patient: Aaron Olivarez MR#: [id number] : 1960 Acct:[id number] Age/Sex: 64 / M Adm Date: 5 Loc: Room: [address] [place] [address] Type: ADM IN Attending Dr: Yamila Donald [...] signed by Yamila Donald MD> 11/20/[address] [facility] Work Phone: Reason for referral (narrative)No reason for referral information availableSt. [facility] Work Phone: Summary Purpose Family [...] Visit Admit Date Acute CVA (cerebrovascular accident) [facility] 2024 9:54am Altered mental status November 17, 2024 9:54am Seizure November 17, 2024 9: 54am Chief Complaint Admit Date neuro symptoms/fall November 18, 2024 1: 02pm neuro symptoms/fall November 18, 2024 4: 12pm Reason for Visit Admit Date Acute CVA (cerebrovascular accident) [facility] 2024 1:02pm Altered mental status November 18, 2024 1:02pm Seizure November 18, 2024 1: 02pm T wave inversion in EKG November 18 1:02pm Chief Complaint Admit Date 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, 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 8:22 am Reason for Visit Admit Date History of seizure disorder June 07 8:22am Polysubstance abuse June 07, 2025 8:[address] elevation myocardial infarction (STEM I) of inferior wall June 07, 2025 8:22am Chief Complaint Admit Date 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, 2025 8:22 am Unknown July [...] 2024 7:25pm Acute hypoxic respiratory failure Septem david 2024 7:25pm KORIN (acute kidney injury) July 7:25pm Aspiration pneumonia July 31 7:25pm Atrial flutter Giovanna 18th, 2025 7:25pm Breakthrough seizure July 31 7:25pm [...] 31, 2025 7:25pm Chief Complaint Admit Date 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, 2025 8:22 am Unknown July 31, 2025 1:55pm Respiratory Failure July 31, 2025 7:25pm Respiratory Failure August 07, 2025 12:00am Respiratory Failure August 14, 2025 12 :00am Reason for Visit Admit Date History of seizure disorder June 07, 8:22am Polysubstance abuse June 07, 2025 8:22 [...] 2025 7:25pm Seizure July 31, 2025 7:25pm Additional Source Comments (unrecognized sect ion and content) No Status Records FoundNo Status Records FoundNo Status Records FoundNo Status Records FoundNo Status Records FoundNo Status Records FoundNo Status Records FoundNo Status Records FoundNo Status Records FoundNo Status Records FoundNo Status Records Found INFORMATION SOURCE (unrecogn ized section and content) DATE CREATED AUTHOR 05/01/2018 [facility] DATE CREATED AUTHOR AUTHOR'S ORGANIZ ATION 05/04/2018 [facility] DATE CREATED AUTHOR AUTHOR'S ORGANIZ ATION 05/07/2018 [facility] DATE CREATED AUTHOR AUTHOR'S ORGANIZ ATION 05/09/2018 [facility] DATE CREATED AUTHOR AUTHOR'S ORGANIZ ATION 10/23/2018 [facility] DATE CREATED AUTHOR AUTHOR'S ORGANIZ ATION 11/28/2022 [facility] DATE CREATED AUTHOR AUTHOR'S ORGANIZ ATION 07/24/2024 [facility] DATE CREATED AUTHOR AUTHOR'S ORGANIZ ATION 11/24/2024 [facility] DATE CREATED AUTHOR AUTHOR'S ORGANIZ ATION 06/10/2025 [facility] DATE CREATED AUTHOR AUTHOR'S ORGANIZ ATION 09/14/2025 [facility] Care Teams (unrecognized sec [...] DOOther ProviderActiveStart: June 07, 2025 Neville Bush DOOther ProviderActiveStart: June 07, 2025 Bella Cano , APRNOther ProviderActiveStart: June 07, 2025 Alejandra Montenegro , VPBE-YXK-BUrsad ProviderActiveStart: June 07, 2025 Ratna Denton , CARTOGRAPHIC TECHNICIAN ACNP-BCOther ProviderActiveStart: June 07, 2025 Thanh Paris MDOther ProviderActiveStart: June 07, 2025 Víctor Agrawal MDOther ProviderActiveStart: June 07, 2025 Neville Rojas MDOther ProviderActiveStart: June 07, 2025 Kota Carreno , DOAttending ProviderActiveStart: June 07, 2025 Kota Carreno , DOOther ProviderActiveStart: June 07, 2025 Michael Willoughby DOOther [...] 18, 2024 End: November 21, 2024Yamila Donald , MDAttending ProviderActiveStart: November 18, 2024 End: November 21, 2024Donna Kelleyther ProviderActiveStart: November 18, 2024 End: November 21, [...] November 18, 2024 End: November 21shanice Amaro FIBERGLASS BOAT FINISHER-COther ProviderActiveStart: November 18, 2024 End: November 21, 2024Alejandra Montenegro , WZFT-KCS-HCnsnn ProviderActiveStart: November 18, 2024 End: November 21, 2024 Team Status: Active Member Role Status Dates Sulaiman Feldman DO Primary Care Provider Active Start: November 18, 2024 Jamin Sepulveda DOEmerevie ProviderActiveStart: November 18, 2024 Chaz Frey MDAdmit ProviderActiveStart: November 18, 2024 Yamila Donald MDOther ProviderActiveStart: November 18, 2024 Jaylin Fajardo RNOther [...] ProviderActiveStart: November 18, 2024 Janie Amaro , FIBERGLASS BOAT FINISHER-COther ProviderActiveStart: November 18, 2024 Alejandra Montenegro , CBYH-JOE-VZjlxh ProviderActiveStart: November 18, 2024 Team Status: Active [...] ProviderActiveStart: November 17, 2024 Janie Amaro , FIBERGLASS BOAT FINISHER-COther ProviderActiveStart: November 17, 2024 Alejandra Montenegro , OIVB-BIO-HXwayi ProviderActiveStart: November 17, 2024 Team Status: Inactive Member Role Status Dates Sulaiman Feldman , DO Primary Care Provider Active Start: May 01, 2024 End: May 06jaren Douglass MDAdmit ProviderActiveStart: May 01, 2024 End: May 06ndneeraj Maldonado MDAttending ProviderActiveStart: May 01, 2024 End: May 06, 2024Karley Nguyen MDOther ProviderActiveStart: May 01, 2024 End: May 06, 2024Patricio Galaviz MDOther ProviderActiveStart: May 01, 2024 End: May 06, 2024Sofia Kent , APRNOther ProviderActiveStart: May 01, 2024 End: May 06jhon Pichardo Jr, DOOther ProviderActiveStart: May 01, 2024 End: May 06janny Mills MDOther ProviderActiveStart: May 01, 2024 End: May 06, 2024Mogurjit Agrawal MDOther ProviderActiveStart: May 01, 2024 End: May 06, 2024 Team Status: Active Member Role Status Dates Sulaiman Feldman DO Primary Care Provider Active Start: May 02, 2024 Magyd Douglass MDAdmdevan ProviderActiveStart: May 02, 2024 Janae [...] APRNOther ProviderActiveStart: May 06, 2024 Stevie Pichardo Jr, DOOther ProviderActiveStart: May 06, 2024 Danny Mills MDOther ProviderActiveStart: May 06, 2024 Víctor Agrawal MDOther ProviderActiveStart: May 06, 2024 Team Status: Inactive Member Role Status Dates Salty Luis DO Attending Provider Active S tart: July 31, 2025 End: July 31, 2025 Team Status: Active Member Role Status Dates Sulaiman Feldman DO Primary Care Provider Active Start: July 31, 2025 Alfonso Antunez , DOAdmit ProviderActiveStart: July 31, 2025 Shannon Bernal MDOther ProviderActiveStart: July 31, 2025 Donna Hughes ProviderActiveStart: July 31, 2025 Sivan Francois DOOther ProviderActiveStart: July 31, 2025 Reno Hubbard MDOther ProviderActiveStart: July 31, 2025 Thanh Kenney , DOOther ProviderActiveStart: July 31, 2025 Neville Bush DOAttending ProviderActiveStart: July 31, 2025 Neville Bush , DOOther ProviderActiveStart: July 31, 2025 Bella Cano , APRNOther ProviderActiveStart: July 31, 2025 Alejandra Montenegro , HRQT-NHA-YOyifq ProviderActiveStart: July 31, 2025 Ratna Denton , CARTOGRAPHIC TECHNICIAN ACNP-BCOther ProviderActiveStart: July 31, 2025 Thanh Paris MDOther ProviderActiveStart: July 31, 2025 Víctor Agrawal MDOther ProviderActiveStart: July 31, 2025 Neville Rojas MDOther ProviderActiveStart: July 31, 2025 Kota Carreno , DOOther ProviderActiveStart: July 31, 2025 Lizett Murray MDOther ProviderActiveStart: July 31, 2025 Brandy Wilburn MDOther ProviderActiveStart: July 31, 2025 Sherrie Perez MDOther ProviderActiveStart: July 31, 2025 Jaylin Fajardo RNOther ProviderActiveStart: July 31, 2025 eFly [place] , DOOther ProviderActiveStart: July 31, 2025 Yasmine Jimenez MDOther ProviderActiveStart: July 31, 2025 Katherin Bell MDOther ProviderActiveStart: July 31, 2025 Carolyne Storey , APRNOther ProviderActiveStart: July 31, 2025 Laurel Hayes MDOther ProviderActiveStart: July 31, 2025 Lissett Burdick , SHRIMP HEADER-BCOther ProviderActiveStart: July 31, 2025 Team Status: Active Member Role Status Dates Sulaiman Feldman DO Primary Care Provider Active Start: August 07, 2025 Alfonso Antunez , DOAdmit ProviderActiveStart: August 07, 2025 Donna Hughes ProviderActiveStart: August 07, 2025 Sivan Francois DOOther ProviderActiveStart: August 07, 2025 Reno Hubbard MDOther ProviderActiveStart: August 07, 2025 Thanh Kenney DOOther ProviderActiveStart: August 07, 2025 Neville Bush DOOther ProviderActiveStart: August 07, 2025 Bella Cano , APRNOther ProviderActiveStart: August 07, 2025 Alejandra Montenegro , FQOR-RTW-JEjctb ProviderActiveStart: August 07, 2025 Ratna Denton , CARTOGRAPHIC TECHNICIAN ACNP-BCOther ProviderActiveStart: August 07, 2025 Thanh Paris [...] ProviderActiveStart: August 07, 2025 Lissett Burdick , SHRIMP HEADER-BCOther ProviderActiveStart: August 07, 2025 Kiko Maldonado MDOther [...] , APRNOther ProviderActiveStart: August 14, 2025 Alejandra Scarlett Montenegro , NZYX-PJB-CHaxzc ProviderActiveStart: August 14, 2025 Miko Montalvo MDOther [...] BE BASED ON THE PRIMARY CLINICAL RECORDS. [employer] provides no warranty or guarantee of the accuracy or completeness of information in this document.
--- NOTE | 2025-09-19 01:50 | ED.SOB1 ---
HPI - SOB/Dyspnea General Chief Complaint: Shortness of Breath/Dyspnea Stated Complaint: SOB Time Seen by Provider: 09/19/25 00:54 Source: patient Mode of arrival: Wheelchair Limitations: no limitations History of Present Illness HPI Narrative: 65-year-old male with a history of seizures, polysubstance abuse, respiratory failure, COPD is dropped off at the emergency entrance by a friend and presents for evaluation of shortness of breath. Upon arrival he is irritable and falling asleep. He is poorly able to follow commands. He awakens from a sleepy state and is irritable and swearing. The patient admits that he smokes a pack of cigarettes a day and also uses methamphetamine. Noted upon his arrival that the registration area smelled strongly of marijuana. If he wanted to be on a ventilator if the need arose to assist his breathing and he states he does not know what a ventilator is. Related Data Home Medications ?Medication ?Instructions ?Recorded ?Confirmed quetiapine 50 mg tablet 50 mg PO .qhs 09/09/25 09/10/25 ziprasidone HCl 20 mg capsule 20 mg PO .qd 09/09/25 09/10/25 Previous Rx's ?Medication ?Instructions ?Recorded amlodipine 5 mg tablet 5 mg PO QD #30 tabs 09/10/25 aspirin 81 mg chewable tablet 81 mg PO .qd #30 tabs 09/10/25 atorvastatin 80 mg tablet 80 mg PO .qhs #30 tabs 09/10/25 clopidogrel 75 mg tablet 75 mg PO .qd #30 tabs 09/10/25 levetiracetam 1,000 mg tablet 1,000 mg PO BID 1 month #60 tabs 09/10/25 (Keppra) metoprolol tartrate 25 mg tablet 25 mg PO BID #60 tabs 09/10/25 Allergies Allergy/AdvReac Type Severity Reaction Status Date / Time No Known Drug Allergies Allergy Verified 09/09/25 16:37 Review of Systems ROS Status of ROS unobtainable due to medical condition and unobtainable due to mental status [facility] Medical History (Updated 09/19/25 @ 02:41 by Gricel Ambriz MD) Methamphetamine abuse ?F15.10 - Other stimulant abuse, uncomplicated (ICD-10) Drug abuse ?F19.10 - Other psychoactive substance abuse, uncomplicated (ICD-10) Breakthrough seizure ?G40.919 - Epilepsy, unspecified, intractable, without status epilepticus (ICD-10) 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) Epileptic seizure ?G40.909 - Epilepsy, unspecified, not intractable, without status epilepticus (ICD-10) COPD (chronic obstructive pulmonary disease) ?J44.9 - Chronic obstructive pulmonary disease, unspecified (ICD-10) Social History Highest level of school completed/degree received: don't know Little interest or pleasure in doing things: not at all Feeling down, depressed, or hopeless: not at all Exam Narrative Exam Narrative: Vital signs and Nursing Notes reviewed: Patient has normal pulse, he is hypertensive with blood pressure of 200/100, he is tachypneic and hypoxic ox of 77% on room air upon arrival General: Thin adult male sitting on the edge of the bed, irritable, poorly cooperative, intermittent harsh cough HEENT: Normocephalic atraumatic, mucous membranes are moist and pink, eyes are clear, normal conjunctiva, vision is grossly intact, posterior pharynx is normal in appearance. Neck: Supple, no meningeal signs, no anterior or posterior cervical lymphadenopathy Chest: Diminished breath sounds with occasional expiratory wheezing, no rhonchi or rales appreciated, no accessory muscle use, hypoxic upon arrival with pulse ox of 77% on room air CVS: Regular rate and rhythm S1-S2, no murmurs rubs or gallops, pulses are brisk and equal bilaterally ABD: Soft, nondistended, nontender, no rebound guarding or rigidity, bowel sounds are normal, no pulsatile masses appreciated Extremities: Moving all extremities, no lower extremity tenderness or swelling noted Skin: Normal in appearance without rash,pallor, petechiae or purpura Neuro: No gross focal deficits; speech is clear, no facial droop, moving all extremities Constitutional Vital Signs, click to edit/add: Last Vital Signs Pulse 60 09/19/25 04:00 Resp 18 09/19/25 04:00 BP 114/71 09/19/25 04:00 Pulse Ox 70 L 09/19/25 04:00 O2 Del Method Nonrebreather 09/19/25 01:41 O2 Flow Rate 15 09/19/25 01:41 FiO2 50 09/19/25 01:54 Course Vital Signs Vital signs: Vital Signs Pulse Oximetry 61 L 09/19/25 00:52 Pulse Rate 60 09/19/25 04:00 Respiratory Rate 18 09/19/25 04:00 Blood Pressure 114/71 09/19/25 04:00 Pulse Oximetry 70 L 09/19/25 04:00 Oxygen Delivery Method Nonrebreather 09/19/25 01:41 Oxygen Delivery Flow Rate 15 09/19/25 01:41 Fraction of Inspired Oxygen 50 09/19/25 01:54 MDM - SOB/Dyspnea MDM Narrative Medical decision making narrative: 65-year-old male was brought to emergency department by his son. The patient was initially dropped off by his son who called the emergency department later stating that the patient was acting strangely at home and had taken off his pants. He the son asked the patient why he took off his pants and he told him that he was hot. The patient the son then went back into his room and later when coming out the patient was completely undressed. The patient's son got him dressed and brought him to the emergency department and left before any additional history could be obtained. Upon arrival arrival the patient was irritable with shallow respirations and falling asleep. EKG is sinus rhythm at 90 bpm with a normal axis and occasional PVCs. An IV was placed and he was medicated with 125 mg Solu-Medrol, 2 g of magnesium and given 2 DuoNebs. A blood gas was ordered. His pH is 7.127 with a pCO2 greater than 98. pO2 is also low at 77.4. Initially the patient was placed on BiPAP but then intubated due to his mental status and respiratory failure. Routine labs are reviewed. He has a normal white count and stable hemoglobin. Electrolytes are normal. pCO2 is elevated at 37.8. BUN and creatinine are normal. Troponin is normal. BNP is elevated at 6294. He is negative for COVID-19 and influenza. ETOH is negative. Blood cultures are pending. Initial one view CXR chronic changes in the right lung base with mild cardiomegaly, no pneumothorax or widened mediastinum appreciated. He was using the GlideScope with a 7.5 Iranian endotracheal tube. OG tube was then placed. Follow-up chest x-ray confirmed placement of the endotracheal tube and OG tube. Bilious gastric secretions are being drained from the OG tube. He was on a ventilator and sedated with propofol and then IV Versed. He remains moderately hypoxic in the low 90s and was given 40 mg of IV Lasix due to the elevated BMP. Copious thick white to yellow secretions were suctioned by respiratory therapy after he was intubated. He was empirically treated for pneumonia with Zosyn. Urine drug screen is positive for marijuana, methamphetamine, benzodiazepines and cocaine as well as buprenorphine Case was discussed with the hospitalist at [facility] and he has accepted for admission to the ICU. Medical Records Attestation: I reviewed the patient's medical records. Lab Data Attestation: I reviewed the patient's lab results. Labs: Lab Results 09/19/25 09/19/25 09/19/25 Range/Units 00:19 01:20 01:54 WBC 7.8 (4.0-11.0) 10^3/uL RBC 4.21 L (4.70-6.10) 10^6/uL Hgb 12.9 L (14.0-18.0) g/dL Hct 41.9 L (42.0-54.0) % MCV 99.5 H (80.0-94.0) fL MCH 30.6 (25.9-34.0) pg MCHC 30.8 (29.9-35.2) g/dL RDW 15.0 (11.0-15.0) % Plt Count 298 (150-450) 10^3/uL MPV 9.4 L (9.5-13.5) fL Neut % (Auto) 80.7 H (43.0-75.0) % Lymph % (Auto) 9.3 L (20.5-60.0) % Granite % (Auto) 9.5 (1.7-12.0) % Eos % (Auto) 0.0 L (0.9-7.0) % Baso % (Auto) 0.4 (0.2-2.0) % Neut # (Auto) 6.3 (1.4-6.5) 10^3/uL Lymph # (Auto) 0.7 L (1.2-3.8) 10^3/uL Granite # (Auto) 0.7 (0.3-0.8) 10^3/uL Eos # (Auto) 0.0 (0.0-0.7) 10^3/uL Baso # (Auto) 0.0 (0.0-0.1) 10^3/uL Abs Immat Gran (auto) 0.01 (0.00-0.03) 10^3/uL Imm/Tot Granulo (auto) 0.1 (0.0-0.5) % Puncture Site Right radial ABG pH 7.127 L* (7.350-7.450) ABG pCO2 >98.3 H* (35.0-45.0) mmHg ABG pO2 77.4 L (80.0-100.0) mmHg ABG HCO3 Not Reportable ABG O2 Saturation 91.5 % ABG Base Excess Not Reportable Johnny Test Positive (POSITIVE) O2 Liters/Min 9 Sodium 139 (136-145) mmol/L Potassium 4.1 (3.5-5.1) mmol/L Chloride 96 L (98-107) mmol/L Carbon Dioxide 37.8 H (21.0-32.0) mmol/L Anion Gap 9.3 BUN 16.0 (7.0-18.0) mg/dL Creatinine 1.00 (0.70-1.30) mg/dL Est GFR ( Amer) >60 (>=60 mL/min/1.73m^2) Est GFR (Non-Af Amer) >60 (>=60 mL/min/1.73m^2) BUN/Creatinine Ratio 16.0 Glucose 137 H (74-106) mg/dL Lactate 1.9 (0.4-2.0) mmol/L Calcium 9.0 (8.5-10.1) mg/dL Magnesium 2.2 (1.8-2.4) mg/dL Total Bilirubin 0.7 (0.2-1.0) mg/dL AST 53 H (15-37) U/L ALT 54 (16-63) U/L Alkaline Phosphatase 155 H (46-116) U/L Troponin I High Sens 37.2 (4.0-76.1) pg/mL NT-Pro-B Natriuret Pep 6294.0 H* (<=900.0) pg/mL Total Protein 8.2 (6.4-8.2) g/dL Albumin 3.7 (3.4-5.0) g/dL Globulin 4.5 g/dL Albumin/Globulin Ratio 0.8 Urine Opiates Screen (NEGATIVE) Ur Buprenorphine Scrn (NEGATIVE) Ur Oxycodone Screen (NEGATIVE) Urine Methadone Screen (NEGATIVE) Ur Barbiturates Screen (NEGATIVE) U Tricyclic Antidepress (NEGATIVE) Ur Phencyclidine Scrn (NEGATIVE) Ur Amphetamines Screen (NEGATIVE) U Methamphetamines Scrn (NEGATIVE) U Benzodiazepines Scrn (NEGATIVE) Urine Cocaine Screen (NEGATIVE) U Cannabinoids Screen (NEGATIVE) Ethanol Quant <3 mg/dL Influenza Type A Ag Negative Influenza Type B Ag Negative SARS-CoV-2 Ag (CV2AG) Negative (NEGATIVE) 09/19/25 Range/Units 02:40 WBC (4.0-11.0) 10^3/uL RBC (4.70-6.10) 10^6/uL Hgb (14.0-18.0) g/dL Hct (42.0-54.0) % MCV (80.0-94.0) fL MCH (25.9-34.0) pg MCHC (29.9-35.2) g/dL RDW (11.0-15.0) % Plt Count (150-450) 10^3/uL MPV (9.5-13.5) fL Neut % (Auto) (43.0-75.0) % Lymph % (Auto) (20.5-60.0) % Granite % (Auto) (1.7-12.0) % Eos % (Auto) (0.9-7.0) % Baso % (Auto) (0.2-2.0) % Neut # (Auto) (1.4-6.5) 10^3/uL Lymph # (Auto) (1.2-3.8) 10^3/uL Granite # (Auto) (0.3-0.8) 10^3/uL Eos # (Auto) (0.0-0.7) 10^3/uL Baso # (Auto) (0.0-0.1) 10^3/uL Abs Immat Gran (auto) (0.00-0.03) 10^3/uL Imm/Tot Granulo (auto) (0.0-0.5) % Puncture Site ABG pH (7.350-7.450) ABG pCO2 (35.0-45.0) mmHg ABG pO2 (80.0-100.0) mmHg ABG HCO3 ABG O2 Saturation % ABG Base Excess Johnny Test (POSITIVE) O2 Liters/Min Sodium (136-145) mmol/L Potassium (3.5-5.1) mmol/L Chloride (98-107) mmol/L Carbon Dioxide (21.0-32.0) mmol/L Anion Gap BUN (7.0-18.0) mg/dL Creatinine (0.70-1.30) mg/dL Est GFR ( Amer) (>=60 mL/min/1.73m^2) Est GFR (Non-Af Amer) (>=60 mL/min/1.73m^2) BUN/Creatinine Ratio Glucose (74-106) mg/dL Lactate (0.4-2.0) mmol/L Calcium (8.5-10.1) mg/dL Magnesium (1.8-2.4) mg/dL Total Bilirubin (0.2-1.0) mg/dL AST (15-37) U/L ALT (16-63) U/L Alkaline Phosphatase (46-116) U/L Troponin I High Sens (4.0-76.1) pg/mL NT-Pro-B Natriuret Pep (<=900.0) pg/mL Total Protein (6.4-8.2) g/dL Albumin (3.4-5.0) g/dL Globulin g/dL Albumin/Globulin Ratio Urine Opiates Screen Negative (NEGATIVE) Ur Buprenorphine Scrn Positive A (NEGATIVE) Ur Oxycodone Screen Negative (NEGATIVE) Urine Methadone Screen Negative (NEGATIVE) Ur Barbiturates Screen Negative (NEGATIVE) U Tricyclic Antidepress Negative (NEGATIVE) Ur Phencyclidine Scrn Negative (NEGATIVE) Ur Amphetamines Screen Negative (NEGATIVE) U Methamphetamines Scrn Positive A (NEGATIVE) U Benzodiazepines Scrn Positive A (NEGATIVE) Urine Cocaine Screen Positive A (NEGATIVE) U Cannabinoids Screen Positive A (NEGATIVE) Ethanol Quant mg/dL Influenza Type A Ag Influenza Type B Ag SARS-CoV-2 Ag (CV2AG) (NEGATIVE) ABG Data Attestation: I personally reviewed and interpreted this ABG as follows: Interpretation: Respiratory acidosis ECG Data Attestation: I personally reviewed and interpreted this ECG as follows: (90 bpm, occasional PVCs, nonspecific ST changes, no acute ST segment elevation or T wave inversion) Critical Care Time Critical Care Time Critical Care Time: Yes Total Critical Care Time: 45 Attestation: Due to this patient's presentation and respiratory distress/respiratory failure and the high probability of sudden and clinically significant deterioration in his condition he required the highest level of my preparedness to intervene urgently. I provided critical care time including documentation time medication orders and management reevaluation vital sign assessment ordering and reviewing of lab tests ordering reviewing of x-ray studies and patient with transfer physician. Aggregate critical care time is 45 minutes including only time during which I was engaged in work directly related to his care and does not include time spent treating other patients simultaneously Discharge Plan Discharge Chief Complaint: Shortness of Breath/Dyspnea Clinical Impression: Acute exacerbation of chronic obstructive pulmonary disease (COPD), Acute hypercapnic respiratory failure Patient Disposition: [facility] Time of Disposition Decision: 02:41 Discharge Location: [facility] Procedures ED Procedure Instructions Procedures Procedures: Procedure Note: Endotracheal intubation-was intubated using RSI with a 7.5 Iranian endotracheal tube passed through the visualized vocal cords. Positive end-tidal CO2 color change, bilateral breath sounds auscultated. OG tube placed by myself with positive [place] of air in the stomach and return of gastric secretions in the suction cani
[2025-09-19 01:51] LABS: Hematocrit 41.9 % (42.0-54.0); Hemoglobin 12.9 g/dL (14.0-18.0); Immature Granulocytes Abs Auto 0.01 10^3/uL (0.00-0.03); Immature Granulocytes Pct Auto 0.1 % (0.0-0.5); Lymphocytes Absolute Auto 0.7 10^3/uL (1.2-3.8); Mean Corpuscular HGB Conc 30.8 g/dL (29.9-35.2); Mean Corpuscular Hemoglobin 30.6 pg (25.9-34.0); Mean Corpuscular Volume 99.5 fL (80.0-94.0); Platelet Count 298 10^3/uL (150-450); Red Blood Count 4.21 10^6/uL (4.70-6.10); White Blood Count 7.8 10^3/uL (4.0-11.0)
[2025-09-19 02:17] LABS: Lactate/Lactic Acid 1.9 mmol/L (0.4-2.0)
[2025-09-19 02:19] LABS: SARS-CoV-2 Ag NEGATIVE (NEGATIVE)
[2025-09-19 02:22] LABS: Alanine Aminotransferase 54 U/L (16-63); Albumin Globulin Ratio 0.8; Albumin Level 3.7 g/dL (3.4-5.0); Alkaline Phosphatase 155 U/L (46-116); Anion Gap 9.3; Aspartate Amino Transferase 53 U/L (15-37); Blood Urea Nitrogen 16.0 mg/dL (7.0-18.0); Calcium 9.0 mg/dL (8.5-10.1); Carbon Dioxide 37.8 mmol/L (21.0-32.0); Chloride 96 mmol/L (98-107); Estimated GFR (African America >60 (>=60 mL/min/1.73m^2); Estimated GFR (Non-African Ame >60 (>=60 mL/min/1.73m^2); Globulin 4.5 g/dL; Glucose 137 mg/dL (74-106); Magnesium 2.2 mg/dL (1.8-2.4); Potassium 4.1 mmol/L (3.5-5.1); Sodium 139 mmol/L (136-145); Total Protein 8.2 g/dL (6.4-8.2)
[2025-09-19 02:34] LABS: NT Pro B Type Natriuretic Pept 6294.0 pg/mL (<=900.0)
[2025-09-19] MEDS: PROPOFOL 1,000 MG/100 ML VIAL 1.769 MG IV (02:41)
--- NOTE | 2025-09-19 02:50 | RESP.RT ---
Fi02 was increased up to 70% from 50% due to patient Spo2 in the mid 80's. Sp02 increased to 90%.
[2025-09-19] MEDS: MIDAZOLAM HCL 2 MG/2 ML VIAL 4 MG IV (02:57)
[2025-09-19] MEDS: SUCCINYLCHOLINE CHLORIDE 200 MG/10 ML MDV 100 MG IV (02:59)
[2025-09-19 03:06] LABS: Cannabinoid Screen Urine POSITIVE (NEGATIVE); Methamphetamines Screen Urine POSITIVE (NEGATIVE); Tricyclic Antidepressant Urine NEGATIVE (NEGATIVE)
[2025-09-19] MEDS: FUROSEMIDE 40 MG/4 ML VIAL IVP (03:21)
[2025-09-19] MEDS: 0.9 % SODIUM CHLORIDE 500 ML IV (03:23)
[2025-09-19] MEDS: PIPERACILLIN SODIUM/TAZOBACTAM 3.375 GM in 0.9 % SODIUM CHLORIDE 50 ML IV (03:24)
[2025-09-19 04:32] LABS: Allen Test POSITIVE (POSITIVE); HCO3 ABG 36.0 mmol/L (22.0-26.0); Oxygen Saturation ABG 99.2 %; PO2 ABG 127.0 mmHg (80.0-100.0)
[2025-09-19 04:33] LABS: O2 Mode VENTILATOR; Pos End Expiratory Pressure +5; Puncture Site RIGHT RADIAL; Rate 18
[2025-09-19 04:34] LABS: ABG PCO2 81.0 mmHg (35.0-45.0)
== END 2025-09-19 05:10 | disposition short-term general hospital (02) ==
PROVIDERS: Emergency Provider Emergency Medicine
DX: J96.02 Acute respiratory failure with hypercapnia (principal); J44.1 Chronic obstructive pulmonary disease with (acute) exacerbation; F17.210 Nicotine dependence, cigarettes, uncomplicated; R56.9 Unspecified convulsions; F19.10 Other psychoactive substance abuse, uncomplicated
CPT/HCPCS: 31500; 36415; 36600; 51702; 71045; 80053; 80307; 80320; 82805; 83605; 83735; 83880; 84484; 85025; 87040; 87804; 87811; 93005; 94002; 94640; 94660; 96365; 96366; 96367; 96368; 96375; 96376; 99291; 99292; J0330; J1938; J2250; J2543; J2704; J2919; J3475

== ENCOUNTER 2025-10-05 07:46 | Emergency (ER) | payer MEDICARE, SELFPAY ==
--- OUTSIDE RECORDS SUMMARY | 2025-09-30 13:47 | XMS_ITS | Continuity of Care Document ---
Author Organization [facility] Address [address] [place] [address] Phone Care Team Providers Care Shoe Lay Out Planner Name Role Phone Salty Luis DO Attending Provider [phone] Sulaiman Feldman DO Primary Care Provider Alfonso Antunez DO Admit Provider Shannon Bernal MD Other Provider [phone] Donna Marcelo Other Provider Unavailable Sivan Francois DO Other Provider Reno Hubbard MD Other Provider Thanh Kenney DO Other Provider Neville Bush DO Attending Provider Neville Bush DO Other Provider [phone] Bella Cano MUSIC COMPOSER Other Provider Alejandra Montenegro MUSIC COMPOSER-SENIOR FUND ACCOUNTANT-C Other Provider Ratna Denton MUSIC COMPOSER Other Provider Thanh Paris MD Other Provider Víctor Agrawal MD Other Provider Neville Rojas MD Other Provider Kota Carreno DO Other Provider Lizett Murray MD Other Provider Brandy Wilburn MD Other Provider Sherrie Perez MD Other Provider Jaylin Fajardo RN Other Provider Unavailable Fely [place] DO Other Provider Yasmine Jimenez MD Other Provider Katherin Bell MD Other Provider Carolyne Storey APRN Other Provider Laruel Hayes MD Other Provider Lissett Burdick [facility] Other Provider Thanh Paris MD Attending Provider Kiko Maldonado MD Other Provider Deb Bartholomew MD Other Provider Miko Montalvo MD Other Provider Otto Mariee DO Attending Provider Otto Mariee DO Other Provider [phone] Donna Larson APRN Other Provider Patricio Alvarez DO Other Provider Miri Greenberg DO Other Provider Patricio Alvarez DO Other Provider Neville Lujan DO Other Provider Kiko Maldonado MD Admit Provider Tito Castellano MD Other Provider Elmer Lynn MD Other Provider William Arzate MD Other Provider Care Teams Patient Care Team Team Status: Active Member Role/Relationship Status Dates Sulaiman Feldman , DO Primary Care Provider Active Visit Care Team Team Status: Inactive Member Role/Relationship Status Dates Salty Luis , DO Attending Provider Active S tart: July 31, 2025 End: July 31, 2025 Visit Care Team Team Status: Active Member Role/Relationship Status Dates Sulaiman Feldman , DO Primary Care Provider Active Start: July 31, 2025 Alfonso Antunez , DOAdmit ProviderActiveStart: July 31, 2025 Shannon Bernal MDOther ProviderActiveStart: July 31, 2025 Donna Kelleyther ProviderActiveStart: July 31, 2025 Sivan Francois , DOOther ProviderActiveStart: July 31, 2025 Reno Hubbard MDOther ProviderActiveStart: July 31, 2025 Thanh Kenney , DOOther ProviderActiveStart: July 31, 2025 Neville Bush , DOAttending ProviderActiveStart: July 31, 2025 Neville Bush , DOOther ProviderActiveStart: July 31, 2025 Bella Cano , APRNOther ProviderActiveStart: July 31, 2025 Alejandra Montenegro KAXQ-LED-TLyiam ProviderActiveStart: July 31, 2025 Ratna Denton MUSIC COMPOSER ACNP-BCOther ProviderActiveStart: July 31, 2025 Thanh Paris MDOther ProviderActiveStart: July 31, 2025 Víctor Agrawal MDOther ProviderActiveStart: July 31, 2025 Neville Rojas MDOther ProviderActiveStart: July 31, 2025 Kota Carreno DOOther ProviderActiveStart: July 31, 2025 Lizett Murray MDOther ProviderActiveStart: July 31, 2025 Brandy Wilburn MDOther ProviderActiveStart: July 31, 2025 Sherrie Perez MDOther ProviderActiveStart: July 31, 2025 Jaylin Fajardo RNOther ProviderActiveStart: July 31, 2025 Jaylin Fajardo RNOther ProviderActiveStart: July 31, 2025 Fely [place] DOOther ProviderActiveStart: July 31, 2025 Yasmine Jimenez MDOther ProviderActiveStart: July 31, 2025 Katherin Bell MDOther ProviderActiveStart: July 31, 2025 Carolyne K Storey , APRNOther ProviderActiveStart: July 31, 2025 Laurel Hayes MDOther ProviderActiveStart: July 31, 2025 Lissett Burdick , SENIOR FUND ACCOUNTANT-BCOther ProviderActiveStart: July 31, 2025 Visit Care Team Team Status: Active Member Role/Relationship Status Dates Sulaiman Grant Rykrystyna , DO Primary Care Provider Active Start: August 07, 2025 Alfonso Antunez , DOAdmit ProviderActiveStart: August 07, 2025 Donna AlcantaraOther ProviderActiveStart: August 07, 2025 Sivan Francois , DOOther ProviderActiveStart: August 07, 2025 Reno Hubbard MDOther ProviderActiveStart: August 07, 2025 Thanh Kenney , DOOther ProviderActiveStart: August 07, 2025 Neville Bush , DOOther ProviderActiveStart: August 07, 2025 Bella Cano , APRNOther ProviderActiveStart: August 07, 2025 Alejandra Montenegro , YNPK-EKZ-TXxbdr ProviderActiveStart: August 07, 2025 Ratna Denton , MUSIC COMPOSER ACNP-BCOther ProviderActiveStart: August 07, 2025 Thanh Paris [...] Jaylin Fajardo RNOther ProviderActiveStart: August 07, 2025 Jaylin Fajardo RNOther ProviderActiveStart: August 07, 2025 Fely [place] DOOther ProviderActiveStart: August 07, 2025 Yasmine Jimenez MDOther ProviderActiveStart: August 07, 2025 Katherin Bell MDOther ProviderActiveStart: August 07, 2025 Carolyne Storey , APRNOther ProviderActiveStart: August 07, 2025 Laurel Hayes MDOther ProviderActiveStart: August 07, 2025 Lissett Burdick , SENIOR FUND ACCOUNTANT-BCOther ProviderActiveStart: August 07, 2025 Kiko Maldonado MDOther ProviderActiveStart: August 07, 2025 Visit Care Team Team Status: Active Member Role/Relationship Status Dates Sulaiman Feldman DO Primary Care Provider Active Start: August 14, 2025 Alfonso Antunez , DOAdmit ProviderActiveStart: August 14, 2025 Deb Bartholomew MDOther ProviderActiveStart: August 14, 2025 Donna Hughes ProviderActiveStart: August 14, 2025 Sivan Francois , DOOther ProviderActiveStart: August 14, 2025 Reno Hubbard MDOther ProviderActiveStart: August 14, 2025 Thanh Kenney , DOOther ProviderActiveStart: August 14, 2025 Neville Bush DOOther ProviderActiveStart: August 14, 2025 Bella Cano , APRNOther ProviderActiveStart: August 14, 2025 Alejandra Montenegro QOEY-DKW-AHhlbg ProviderActiveStart: August 14, 2025 Miko Montalvo MDOther ProviderActiveStart: August 14, 2025 Thanh Paris MDOther ProviderActiveStart: August 14, 2025 Otto Mariee , DOAttending ProviderActiveStart: August 14, 2025 Otto Mariee DOOther ProviderActiveStart: August 14, 2025 Donna Larson , APRNOther ProviderActiveStart: August 14, 2025 Patricio Alvarez , DOOther ProviderActiveStart: August 14, 2025 Miri Greenberg , DOOther ProviderActiveStart: August 14, 2025 Patricio Alvarez , DO FELLOWOther ProviderActiveStart: August 14, 2025 Neville Lujan DO FELLOWOther ProviderActiveStart: August 14, 2025 Visit Care Team Team Status: Active Member Role/Relationship Status Dates Sulaiman Feldman DO Primary Care Provider Active Start: September 19, 2025 Kiko Maldonado MDAdmit ProviderActiveStart: September 19, 2025 Ratan Denton APRN ACNP-BCOther ProviderActiveStart: September 19, 2025 Miriam White ProviderActiveStart: September 19, 2025 Guerda Najeraending ProviderActiveStart: September 19, 2025 Miriam Najera ProviderActiveStart: September 19, 2025 Miriam Telles ProviderActiveStart: September 19, 2025 Miriam James ProviderActiveStart: September 19, 2025 Kota Carreno DOOther ProviderActiveStart: September 19, 2025 Miriam Rainey ProviderActiveStart: September 19, 2025 Miriam Miles ProviderActiveStart: September 19, 2025 Miriam Casey ProviderActiveStart: September 19, 2025 Miriam Joel ProviderActiveStart: September 19, 2025 Visit Care Team Team Status: Active Member Role/Relationship Status Dates Sulaiman Feldman DO Primary Care Provider Active Start: September 26, 2025 Kiko Maldonado MDAdmit ProviderActiveStart: September 26, 2025 Miriam Pena ProviderActiveStart: September 26, 2025 Ratna Denton APRN ACNP-BCOther ProviderActiveStart: September 26, 2025 Miriam White ProviderActiveStart: September 26, 2025 Guerda Najeraending ProviderActiveStart: September 26, 2025 Miriam Najera ProviderActiveStart: September 26, 2025 Miriam Telles ProviderActiveStart: September 26, 2025 Neville Rojas MDOther ProviderActiveStart: September 26, 2025 Kota Carreno DOOther ProviderActiveStart: September 26, 2025 Miriam Rainey ProviderActiveStart: September 26, 2025 Miriam Miles ProviderActiveStart: September 26, 2025 Miriam Casey ProviderActiveStart: September 26, 2025 Miriam Dang ProviderActiveStart: September 26, 2025 Chief Complaint and Reason for Visit Chief Complaint Admit Date Unknown July 31, 2025 1:55pm Respiratory Failure July 31, 2025 7:25pm Respiratory Failure August 07, 2025 12:00am Respiratory Failure August 14, 2025 12 :00am Respiratory Failure September 19, 2025 5 :44am Respiratory Failure September 26, 2025 12:00am Reason for Visit Admit Date Atrial flutter July 31, 2025 7:25pm CAD (coronary artery disease) July 31, 2025 7:25pm History of noncompliance with medical tr eatment July 31, 2025 7:25pm History of seizure disorder July 312024 7:25pm Polysubstance abuse July 31, 2025 7:25pm Stented coronary artery July 31, 2025 7:25pm Acute and chronic respiratory failure Se ptember 2024 7:25pm Acute hypercapnic respiratory failure Se ptember 2024 7:25pm Acute hypoxic respiratory failure Septem 2024 7:25pm KORIN (acute kidney injury) July 7:25pm Aspiration pneumonia July 31 7:25pm Breakthrough seizure July 31 7:25pm Counseling regarding advance directives and goals of care July 31, 2025 7:25pm Elevated troponin July 31, 2025 7:25pm 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, 2025 7:25pm Seizure July 31, 2025 7:25pm Acute on chronic respiratory failure with hypoxia and hypercapnia September 19, 2025 5:44am KORIN (acute kidney injury) September 19, 2025 5:44am Atrial flutter September 19, 2025 5 :44am CAD (coronary artery disease) September 192024 5:44am History of noncompliance with medical tr eatment September 19, 2025 5:44am History of seizure disorder September 5:44am Polysubstance abuse September 19, 2025 5 :44am Stented coronary artery September 19 5:44am Respiratory failure September 19, 2025 5 :44am Reason for Referral Type Reason(s) Provider Provider Contact Information P javiervider Address Start Date This is the pt's MH providerPlease arrange a follow-up appointment once discharged from SNF.Please arrange a follow-up appointment once discharged from SNF.Please call to follow with rehab options.Patient to call and set up follow up due to history of noncompliance.Please bring the 10-10EZ form to the appointment.This is the pt[facility] Phone[facility] [phone] [facility], [place], [place] [address]Inuwtd arrange a follow-up appointment once discharged from SNF.[facility] Phone: [phone] [facility] [address]Kcadvk arrange a follow-up appointment once discharged from SNF. [facility] Phone: [phone] [facility] [address]Grwisu call to follow with rehab options.[facility]: You have been scheduled for a follow up appointment for the following date and time, please call to reschedule if needed.[facility] Phone: [phone] [address] [facility] [address]Rutgdch to call and set up follow up due to history of noncompliance.Lennie Clarkil: [email or web address] Work Phone: [phone] [address] [address]Kfjsgz bring the 10-10EZ form to the appointment.Chantelle Hackett APRN [facility]ONWork Phone: [facility] [address] [facility] [facility]amuel[facility] [address] Allergies, Adverse Reactions, Alerts Allergen Type Severity Reaction Last Updated Verified Status No Known Drug Allergies Allergy Unknown Unknown Reaction November 17, 2024 8:25am Yes Active Social History Smoking Status Status Start Date End Date Date of Observa tion Tobacco smoking consumption unknown (alex figueroa) September 19, 2025 8:28am Observation Status Observation Response Date of Response Legal Sex Male (finding) Sex Assigned At BirthMaleSeptember 1959 Social History Assessments Assessment Value Date Recorded SDOH Follow up September 30, 2025 3:52pmQuestionAnswerDate RecordedHas the SDOH screening changed since admission?NNovember 2024 3:52pm Assessment Value Date Recorded SDOH Follow up September 30, 2025 3:00pmQuestionAnswerDate RecordedHas the SDOH screening changed since admission?[facility] 20[facility]:00[facility] Assessment Value Date Recorded SDOH Follow up August 19, 2025 12:32pmQuestionAnswerDate RecordedHas the SDOH screening changed since admission?NOctober 2024 12:32pm Problems Active Problems Problem Diagnosis/Recorded Date Onset Date Stat us KORIN (acute kidney injury) September 20, 2025 10:08am U nknown Active Stented coronary artery August 01, 2025 10:40am U nknown Active CAD (coronary artery disease) July 31, 2025 8:3 4pm Unknown Active Atrial flutter August 01, 2025 10:41am Unknown Active ST elevation myocardial infa rction (STEMI) of inferior wall June 07, 2025 8:04am Unknown Active Acute on chronic respiratory failure with hypoxia and hypercapnia September 19, 2025 8:27am Unknown Activ e History of noncompliance wit h medical treatment August 01, 2025 10:41am Unknown Active History of seizure disorder June 07, 2025 8:05am Unk nown Active Polysubstance abuse June 07, 2025 8:04am Unknown Active Inactive/Resolved Problems Problem Diagnosis/Recorded Date Onset Date Stat KORIN (acute kidney injury) July 31, 2025 8:37pm Unknown Resolved Breakthrough seizure August 01, 2025 4:15pm Unkno wn Resolved Counseling regarding advance directives and goals of care August 18, 2025 2:01pm Unknown Resolv ed Epilepsy after cerebrovascul ar accident (CVA) August 01, 2025 4:15pm Unknown Resolved Nicotine dependence May 02, 2024 12:39pm Unknown Resolved Acute hypoxic respiratory failure July 31, 2025 8:36pm Unknown Resolved Acute hypercapnic respiratory failure July 31, 2025 8:37pm Unknown Resolved Uncontrolled hypertension May 03, 2024 12:54pm Unkn own Resolved History of heroin abuse May 02, 2024 12:39pm Unknow n Resolved Alcohol abuse May 02, 2024 12:39pm Unknown Res olved Acute and chronic respiratory failure July 31, 2025 7:22pm Unknown Resolved Alcohol withdrawal May 04, 2024 10:57am Unknown Resolved Metabolic encephalopathy May 02, 2024 12:39pm Unkno wn Resolved Acute respiratory failure wi th hypoxia and hypercapnia May 02, 2024 6:07am Unknown Resolved Community acquired pneumonia May 02, 2024 6:06am Un known Resolved Aspiration pneumonia July 31, 2025 7:25pm Unkno wn Resolved Respiratory failure September 19, 2025 6:45am Unknown Resolved Seizure November 17, 2024 10:03am Unknown Re solved Elevated troponin May 02, 2024 6:10am Unknown Resolved Tobacco abuse May 02, 2024 6:07am Unknown Reso lved Altered mental status November 17, 2024 10:03am Unknow n Resolved Right lower lobe pneumonia May 02, 2024 12:46pm Unk nown Resolved Acute exacerbation of chroni c obstructive pulmonary disease (COPD) May 02, 2024 6:07am Unknown Resolved Medications Medication Status Dose Units Route Directions Qty Days Refills S tart Date Stop Date End Date Reason(s) Instructions Adherence Amlodipine 10 mg tablet Active 10 MG PO Daily May 01, 2024 11:00pmUnknownGabapentin 800 mg fycojkBqkeqk886MYPFJjrik times dailyJun2023 11:00pmUnknownLevothyroxine (Euthyrox) 137 mcg tabletActive 137MCGPODailyJun2023 11:00pmUnknownNicotine 10 mg cartridgeDiscontinued0 OCFLFRBYHQL2H as needed for to stop smokingMay 01, 2024 11:00pmJanuary 2024 1:10mf3jnjlr inhaled every 1 hour PRN; 2puffs inh Q1H PRN to stop smoking / no more than 16 per dayMethylprednisolone (Medrol) 16 mg xpvdnlPwjzbbktucof23CY FYUviow545Oxyy 23rd, 2024 11:00pmJanuary 2024 1:33pmLevofloxacin 750 mg zigqmjWnpbgjqnocyz016XDJLPpnge29Tlvs 23rd, 2024 11:00pmJanuary 2024 1:33pm Levetiracetam (Keppra) 500 mg jcoxabMsaykr048JCJZJbbgz mhmfq648VjjnqbqNovember 21, 2024 12:00amUnknownPrednisone 10 mg FnzceaJochzx30POKCOvtyn Taper: Start: September 27, 2025 9:00am End: September 30, 2025 8:59am Frequency: DAILY Days: 3 Hours: 0 Dose: 40 Start: September 30, 2025 9:00am End: October 03, 2025 8:59am Frequency: DAILY Days: 3 Hours: 0 Dose: 20 Start: October 03, 2025 9:00am End: October 10, 2025 8:59am Frequency: DAILY Days: 7 Hours: 0 Dose: 1000Nov2024 12:00amPlease contact the information source for Taper Schedule details.UnknownAtorvastatin 80 mg RqsbjpOdzqox21FZHJYftyc evening [address]39[address]Braiowrfb2024 11:00pmUnknownClopidogrel 75 mg RslycoOxvqbs32KWWX Ujenw728135Srupyihlf2024 11:00pmUnknownAspirin (Children's Aspirin) 81 mg Tablet,AxmbzipdLnntdb68SULTQzyut658895Khvaqixuf 25th, 2025 11:00pmUnknown Metoprolol Tartrate 25 mg BswgizEpcutw87MTMCIjdtj dbreq909089Bbqrgjxkz2024 11:00pmUnknownZiprasidone Hcl 20 mg DdkbgpbHjmbde87PBRRZmnny10721Kzxgjgy 6th, 2025 11:00pmUnknownQuetiapine 50 mg DivhlhCbolje43QLDAXnvxm xvteqfj45259 August 18, 2025 11:00pmUnknown Medical Equipment Device Date Implanted Device Details CL STENT XENIA FRONTIER 4.0 X 30 June 07, 2025 Procedures Procedure Date Performed Status Urine Culture July 31, 2025 completed Relevant Diagnostic Tests and/or Laboratory Data Microbiology Results Procedure Source Result Collection Date/Time Result Date/Time Result Comment Performing Site Urine Culture Urine, Not Otherwise Specified July 31, 2025 1:55pmSeptember 2024 8:23am[facility] [id number] [address] [place], [place] [id number] Vital Signs Vital Reading Result Reference Range Collection Date/Time Height 72 [in_i] August 18, 2025 1:69fqJylyks45.70 kgOctober 2024 3:30amBody Temperature 97.8 [degF]97.6-99.0October 2024 11:00amHeart Rate63 /cfk59-177Wmmsyer 2024 11:00amRespiratory rate20 /gmn72-12Bivmkom 2024 11:00amOxygen saturation by Pulse hhxxnxdi57 %95-100October 2024 11:00amBP Tgjhzknj965 mm[Hg]100-140October 2024 11:00amBP Paveluudo22 mm[Hg]60-100October 2024 11:00amInhaled oxygen koxjxlsdeumhm80 %August 07, 2025 2:00pmInhaled oxygen flow rate2 L/minSept2024 11:26hcQlcabb99 [in_i]September 25, 2025 12:25cuMwnpsv49.40 kgSaint [facility] 2024 5:28amBody Zdwzxvrdijh25.2 [degF] 97.6-99.0[facility]2024 9:30pmHeart Rate68 /yen32-147Jjgqkykh 2024 9:30pmRespiratory rate22 /vns44-12Bgckasmg 2024 9:30pmOxygen saturation by Pulse zcgfiomo62 %95-100[facility] 2024 9:30pmBP Nctaofxo350 mm[Hg]100-140 September 29, 2025 9:30pmBP Pdgtttsto58 mm[Hg]60-100[facility] 2024 9:30pm Inhaled oxygen bowvdjfywtsmy96 %September 24, 2025 11:10amInhaled oxygen flow rate2 L/minSaint Claire Medical Center 2024 8:00am Advance Directives Advance Directive Response Recorded Date/ Time Advance Directives No May 21 6:10pm Insurance Providers Guarantor Marbin Trujillo Address [address] [place] [id number].Home Phone: Coverage Status Update:2025 Payer Group Member ID Coverage Type Subscriber Relationship to Subscriber Effective Date Expiration Date Medicaid Id: [id number] E Hintz Id: [id number] [address] [place] [phone] Home Phone: Self Encounters Encounter Location(s) Arrival/Admit Date Discharge/Departure Date Discharge/Departure Disposition Provider(s) Departed Referred -[facility] July 31, 2025 1:55pm July 31, 2025 1:56pm Discharged to home care or self care (routine discharge) Danish Mullins DO Non-patient / Non-visit -[facility] Neurology Se ptember 2024 7:25pm Rafael Mosquera-patient / Sln-iitbv-Amhhspwmx Health PulmonarySeptember 2024 12:00amKrystal Najera-patient / Uqk-bfoly-Lpisabxdz Health PalliativeOctober 2024 12:00amOtto Mariee Jr [facility]-patient / Gzi-niwhp-Wiclkjcns Health PulmonaryNovember 2024 5:44amKrystal Najera-patient / Tks-xwbbv-Pjdiaitjd Health PulmonaryNovember 2024 12:00amThanh Paris MD Recent Diagnosis Onset Date Admit Date Atrial flutter Unknown July 31, 2025 7:25pm CAD (coronary artery disease) Unknown Se ptember 2024 7:25pm History of noncompliance wit h medical treatment Unknown July 31, 2025 7:25pm History of seizure disorder Unknown Jul 7:25pm Polysubstance abuse Unknown July 312024 7:25pm Stented coronary artery Unknown 2024 7:25pm Acute and chronic respiratory failure Unknown July 31, 2025 7:25pm Acute hypercapnic respiratory failure Unknown July 31, 2025 7:25pm Acute hypoxic respiratory failure Unknown July 31, 2025 7:25pm KORIN (acute kidney injury) Unknown 2024 7:25pm Aspiration pneumonia Unknown July 142024 7:25pm Breakthrough seizure Unknown July 142024 7:25pm Counseling regarding advance directives and goals of care Unknown July 31, 2025 7:25pm Elevated troponin Unknown July 7:25pm 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) Un known July 31, 2025 7:25pm Seizure Unknown July 31, 2025 7:25pm Acute on chronic respiratory failure with hypoxia and hypercapnia Unknown September 19, 2025 5:44am KORIN (acute kidney injury) Unknown Novemb er 2024 5:44am Atrial flutter Unknown September 19 5:44am CAD (coronary artery disease) Unknown No vember 2024 5:44am History of noncompliance wit h medical treatment Unknown September 19, 2025 5:44am History of seizure disorder Unknown Nove mber 2024 5:44am Polysubstance abuse Unknown September 5:44am Stented coronary artery Unknown September 19, 2025 5:44am Respiratory failure Unknown September 5:44am Assessments Diagnosis Onset Date Resolution Status Admit Date Atrial flutter acuteSeptember 2024 7:25pmCAD (coronary artery disease)acuteSept2024 7:25pmHistory of noncompliance with medical treatmentacuteSept2024 7:25pmHistory of seizure disorderacuteSept2024 7:25pm Polysubstance abuseacuteSept2024 7:25pmStented coronary arteryacute July 31, 2025 7:25pmAcute and chronic respiratory failureresolved July 31, 2025 7:25pmAcute hypercapnic respiratory failureresolved July 31, 2025 7:25pmAcute hypoxic respiratory failureresolvedSept2024 7:25pmAKI (acute kidney injury)resolvedSept2024 7:25pm Aspiration pneumoniaresolvedSept2024 7:25pmBreakthrough seizure resolvedSept2024 7:25pmCounseling regarding advance directives and goals of careresolvedSept2024 7:25pmElevated troponinresolved July 31, 2025 7: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)resolved July 31, 2025 7:25pmSeizureresolvedSept2024 7:25pmAcute on chronic respiratory failure with hypoxia and hypercapniaacuteNov2024 5:44amAKI (acute kidney injury)acuteNov2024 5:44amAtrial flutteracute September 19, 2025 5:44amCAD (coronary artery disease)acuteNov2024 5:44amHistory of noncompliance with medical treatmentacuteNovember 2024 5:44amHistory of seizure disorderacuteNovember 2024 5:44amPolysubstance abuseacuteNovember 2024 5:44amStented coronary arteryacuteNovember 2024 5:44amRespiratory failureinactiveNov2024 5:44am Plan of Treatment Future Tests Future scheduled test information is unavailable Pending Tests Pending diagnostic test information is unavailable Future Visits Future appointment information is unavailable Future Procedures Procedure Name Ordered Date Scheduled Date Admit Status Order September 19, 2025 6:08am Nov ember 2024 6:08am Discharge Order September 30, 2025 2:05pm Novem david 2024 2:05pm Consult to Psychiatry September 28, 2025 10:22a m September 28, 2025 10:22am Feeding Strategies/Supervision/Equipme nt/Location August 11, 2025 10:06am August 11, 2025 10:07am Speech Therapy Modified Tomer um Swallow August 10, 2025 4:36pm August 11, 2025 4:00a m Admit Status Order July 31, 2025 7:15pm S eptember 2024 7:15pm Discharge Order August 19, 2025 11:19am Octobe r 2024 11:19am Consult to Neurology July 31, 2025 8:13pm July 31, 2025 8:13pm Consult to Palliative Care Doctor August 18, 2025 9:50am August 18, 2025 9:50am Consult to Psychiatry August 13, 2025 8:14am O ctober 2024 8:14am Consult to Pulmonology August 12, 2025 3:19 pm August 12, 2025 3:19pm Future Medications Future medication information is unavailable Patient Instructions Instruction Admit Date Know your Meds Drugs, Alcohol & Your Well-BeingSept2024 7:25pm
[2025-10-05] VITALS (47 sets, daily range): BP systolic 104–160; BP diastolic 57–114; PULSE 58–148; O2SAT 79–100; BMI 25.8
--- NOTE | 2025-10-05 | XR_ITS ---
The [address] [address] Patient Name: AARON OLIVAREZ MRN: [id number] date: 1960 Sex: M Assigned Patient Location: ER Current Patient Location: ER Accession/Order Number: [id number] Exam Date: 10/05/2025 09:15 Report Date: 10/05/2025 10:22 At the request of: MALORIE CASTAÑEDA MD Procedure: XR chest 1V Single view chest: CLINICAL HISTORY: NG tube placement COMPARISON: None FINDINGS: Distal aspect and enteric tube tip curled within the stomach. No free air. Visualized lung parenchyma demonstrate no focal consolidation. XR/XR chest 1V IMPRESSION: ENTERIC TUBE TIP WITHIN THE STOMACH. Impression dictated by: Patricio Velázquez Jr., D.OJeremi 10/05/2025 10:22 AM Dictation Location: [place] [address] Electronically authenticated by: [id number] Y Date: 10/05/2025 10:22
--- NOTE | 2025-10-05 07:49 | ECG_ITS ---
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 Measurements Intervals [place] Rate: 158 P: -[address]391 [place]: -[address] QRS: 50 QRSD: 80 T: 218 QT: 298 QTc: 386 Interpretive Statements 04602 Atrial fibrillation with rapid ventricular response [address] depression, possible subendocardial injury or digitalis effect 21386 Twave abnormality, possible lateral ischemia or digitalis effect 9150 abnormal ECG Compared to ECG 09/19/2025 01:15:32 Possible ischemia now present Sinus rhythm no longer present Ventricular premature complex(es) no longer present ST (T wave) deviation still present Electronically Signed On 10-05-2025 20:28:36 EST by JACKY SIU M.D.
--- NOTE | 2025-10-05 07:49 | XR_ITS ---
The [address] [address] Patient Name: AARON OLIVAREZ MRN: [id number] date: 1960 Sex: M Assigned Patient Location: ED.MAIN Current Patient Location: ER Accession/Order Number: [id number] Exam Date: 10/05/2025 08:15 Report Date: 10/05/2025 09:29 At the request of: MALORIE CASTAÑEDA MD Procedure: XR chest 1V Single view chest: CLINICAL HISTORY: sob COMPARISON: Chest 09/19/2025 FINDINGS: Tubes have now been removed. Heart and mediastinal structures appear unchanged. No new consolidation pneumothorax pleural effusion or free air. XR/XR chest 1V IMPRESSION: TUBES HAVE NOW BEEN REMOVED. NO ACUTE PROCESS IS SEEN. Impression dictated by: Aide Cason Jr.OJeremi 10/05/2025 9:29 AM [facility]ation [facility] Electronically authenticated by: [id number] Y Date: 10/05/2025 09:29
[2025-10-05] MEDS: IPRATROPIUM/ALBUTEROL SULFATE 3 ML AMPUL.NEB IH ×2 (08:04→10:09)
--- OUTSIDE RECORDS SUMMARY | 2025-10-05 08:14 | XMS_ITS | Clinical Summary ---
Author Organization [facility] Address [address] [place] [address] Phone Care Team Providers Care Newcomer Hostess Name Role Phone Sulaiman Feldman DO Primary Care Provider [phone] Encounters DateTypeDepartmentCare FgpnOxgpbftrmsv21/20/2025Scanned Document [facility] [address] [place] [id number] Scanning, Generic Provider from Last 3 Months Social History Tobacco UseTypesPacks/DayYears UsedDateSmoking Tobacco: Never AssessedSex and Gender InformationValueDate RecordedSex Assigned at BirthNot on fileLegal Sex Male05/06/2024 10:09 AM EDTGender IdentityNot on fileSexual OrientationNot on file Plan of Treatment Health MaintenanceDue DateLast DoneCommentsCT Nulxixgwakcb1958Colonoscopy 1960Colorectal Cancer Dgriptwfy1958FIT-DNA (Cologuard)1958FIT 1958Lipid Panel1958Medicare Annual Wellness Visit (AWV)1960 Yqkoakhtxzypx1958MMR Vaccines (1 of 1 - Standard series)1959Diabetes Nvldhuqkz87/22/1976Hepatitis C Xoqttzccz01/22/1976Pneumococcal Vaccine (1 of 2 - PCV)1977DTaP/Tdap/Td Vaccines (1 - Tdap)1980PSA Prostate Cancer Mvzugkltj42/22/2008RSV High Risk: (Elderly (60+) or Population) (1 [...] MemberRelationshipSpecialtyStart DateEnd Date Sulaiman Feldman DO [address] [id number] PCP - General11/29/24
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
--- OUTSIDE RECORDS SUMMARY | 2025-10-05 08:14 | XMS_ITS | Clinical Summary ---
Author Organization [facility] Address [address] 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 Name Role Phone Phys, Self-Refer Or No Pcp/Referring Primary Car e Provider Unavailable Allergies No known active allergies Social History Tobacco UseTypesPacks/DayYears UsedDateSmoking Tobacco: Never AssessedSex and Gender InformationValueDate RecordedSex Assigned at BirthNot on fileLegal Sex Male06/20/2020 4:19 PM EDTGender IdentityNot on fileSexual OrientationNot on file Last Filed Vital Signs Vital SignReadingTime TakenCommentsBlood Ihlosunb966/65012/25/2021 6:20 PM EST Imhyo9434/12/2022 6:20 PM WMFGhiynqbqxcf61.1 ??C (98.7 ??F)12/25/2021 6:20 PM ESTRespiratory Ghkh665912/25/2021 6:20 PM ESTOxygen Cvsizhzdpd42%12/25/2021 6:20 PM ESTInhaled Oxygen Concentration--Qqbfyd10.7 kg (200 lb)12/25/2021 5:17 PM EST Mdlgtc674.4 cm (6' 1 )12/25/2021 5:17 PM ESTBody Mass Index26.39012/25/2021 5:17 PM EST Plan of Treatment Health MaintenanceDue DateLast DoneCommentsCologuard (average risk only) 1960 8862Xlyjhbxsiod1958Colorectal Cancer Ukaknizap1958FIT (average risk only)1958Hepatitis C Yjcjicvvu1958DTaP,Tdap,and Td Vaccines (1 - Tdap)1977Pneumococcal Vaccines 50years [...]
--- OUTSIDE RECORDS SUMMARY | 2025-10-05 08:14 | XMS_ITS | CCD ---
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 rangePerformed By: #### CMP, CBC ####[place] [address] USAPotassium [Moles/Vol]4.7 mmol/LNormal3.5-5.1The [facility] Physician GroupComment on above:Performed By: #### CMP, CBC ####[place] [address] USAProtein [Mass/Vol]5.1 g/dLLow6.4-8.9 [facility] Physician GroupComment on above:Performed By: #### CMP, CBC ####[facility] [place] [address] USASodium [Moles/Vol]137 mmol/JVkdkys717-082Zhh [facility] Physician GroupComment on above: Performed By: #### CMP, CBC ####[facility] [place] [address] USAUrea nitrogen [Mass/Vol]24 mg/dLNoal7-25ThMinidoka Memorial Hospital Physician GroupComment on above:Performed By: #### CMP, CBC ####[facility] [place] [address] USAGlucose Poct Glucometerson 95-78-4561Cllcvxj [Mass/Vol]99 mg/dLAdventHealth Deltona ER Physician [facility] Health BiloxiComment on above:Result Comment: Random Glucose Reference Range is dependent on time and content of last meal. Glucose of more than 200 mg/dL in a nonstressed, ambulatory subject supports the diagnosis of Diabetes Marcie litus.PERFORMED BY:[address] [place], [place] [phone] MEDICAL ELÍAS GERMAN M.D.Performed By: #### GLULS ####Point of Care testing,Glucose [Mass/Vol]114 mg/dLAdventHealth Deltona ER Physician [facility] Health BiloxiComment on above:Result Comment: Random Glucose Reference Range is dependent on time and content of last meal. Glucose of more than 200 mg/dL in a nonstressed, ambulatory subject supports the diagnosis of Diabetes Mellitus.PERFORMED BY:[address] [place], [place] [phone] MEDICAL ELÍAS GERMAN M.D.Performed By: #### GLULS ####Point of Care testing,XR chest 1V portableon 34-33-5362UR chest 1V portableAdventHealth Deltona ER Physician [facility] Health BiloxiArterial Blood Gason 07-48-6631TNI Base Excess8.6 mmol/LHigh-3.0-3.0The [facility] Physician [facility] BiloxiComment on above:Performed By: #### ABG ####Point of Care testing,ABG Frac Inspired O230 %NormalThe [facility] Physician GroupComment on above:Performed By: #### ABG ####Point of Care testing,ABG Oxygen Content6.7 mmol/LNormal6.6-9.7The [facility] Physician GroupComment on above:Performed By: #### ABG ####Point of Care testing,ABG Oxygen Imyhvgchma01.9 %Low95.0-100.0The [facility] Physician GroupComment on above:Performed By: #### ABG ####Point of Care testing,ABG PCO2 48.8 mm[Hg]High35.0-45.0The [facility] Physician GroupComment on above:Performed By: #### ABG ####Point of Care testing,ABG NWTZ4MdcdchVwe [facility] Physician GroupComment on above:Performed By: #### ABG ####Point of Care testing,ABG PH 7.35Etkh1.35-7.45The [facility] Physician GroupComment on above:Performed By: #### ABG ####Point of Care testing,ABG PO274.0 mm[Hg]Low80.0-100.0The [facility] Physician GroupComment on above:Performed By: #### ABG ####Point of Care testing,ABG TV500 mLNormalThe [facility] Physician GroupComment on above: Performed By: #### ABG ####Point of Care testing,CO2 [Moles/Vol]35.1 mmol/LHigh 23.0-27.0The [facility] Physician GroupComment on above:Performed By: #### ABG ####Point of Care testing,HCO3 (Bld) [Moles/Vol]33.6 mmol/LHigh23.0-29.0The [facility] Physician GroupComment on above:Performed By: #### ABG ####Point of Care testing,Respiratory CriticalNormalThe [facility] Physician GroupComment on above:Result Comment: Critical Value called on: 09/23/2025 at 05:52PERFORMED BY:[place] [address] [place], [place] [phone] MEDICAL DIRECTORCELESTE GERMAN M.D.Performed By: #### ABG ####Point of Care testing,Set Respiratory Iqzu01MtgqtgYnlAdventHealth Deltona ER Physician GroupComment on above:Performed By: #### ABG ####Point of Care testing,VBG Draw SiteRight RadialAdventHealth Deltona ER Physician GroupComment on above:Performed By: #### ABG ####Point of Care testing,Ventilator ModeACNormal The [facility] Physician GroupComment on above:Performed By: #### ABG ####Point of Care testing,Basic Metabolic Panelon 34-79-6554Wgjqs gap [Moles/Vol]9.0 mmol/LNormal6.0-15.0The [facility] Physician GroupComment on above:Performed By: #### CBC, BMP ####[place] [address] [place] [address] USACalcium [Mass/Vol]8.8 mg/dLNormal8.6-10.3The [facility] Physician Group Comment on above:Performed By: #### CBC, BMP ####[address] [address] USAChloride [Moles/Vol]100 mmol/LNormal 98-107The [facility] Physician [facility] BiloxiComment on above:Performed By: #### CBC, BMP ####[address] [address] USACO2 [Moles/Vol]32.5 mmol/LHigh21.0-31.0The [facility] Physician GroupComment on above:Performed By: #### CBC, BMP ####[place] [address] [place] [address] USACreatinine [Mass/Vol]1.11 mg/dLNormal0.70-1.30The [facility] Physician GroupComment on above:Performed By: #### CBC, BMP ####[place] [address] [place] [address] [place] Creatinine Clr Calc Xyhrycwd99.58NoTransylvania Regional Hospital Physician GroupComment on above:Result Comment: PERFORMED BY:[address] [place], [place] [phone] MEDICAL DIRECTORCELESTE GERMAN M.D.Performed By: #### CBC, BMP ####[address] [address] USAGFR/1.73 sq M.predicted MDRD (S/P/Bld) [Vol rate/Area]mL/min/{1.73_m2}NormalThe [facility] Physician GroupComment on above: Performed By: #### CBC, BMP ####[address] [address] USAGlucose [Mass/Vol]118 mg/pMDroj39-897Rtr [facility] Physician GroupComment on above:Result Comment: Random Glucose Reference Range is dependent on time and content of last meal. Glucose of more than 200 mg/dL in a nonstressed, ambulatory subject supports the diagnosis of Diabetes Mellitus. ADA recommended reference rangePerformed By: #### CBC, BMP ####[address] [address] USAPotassium [Moles/Vol] 4.5 mmol/LNormal3.5-5.1The [facility] Physician GroupComment on above:Performed By: #### CBC, BMP ####[place] [address] USASodium [Moles/Vol]137 mmol/HZvihcv090-356Czi [facility] Physician GroupComment on above:Performed By: #### CBC, BMP ####[address] [address] USAUrea nitrogen [Mass/Vol]23 mg/dL Normal7-25The [facility] Physician GroupComment on above:Performed By: #### CBC, BMP ####[address] [address] [facility] Complete Blood Count Auto Diffon 90-74-4134Iegdbpzuf (Bld) [#/Vol]0.0 10*3/uL Normal0.0-0.2The [facility] Physician GroupComment on above:Result Comment: PERFORMED BY:[place] [address] [place] [place], [place] [phone] MEDICAL DIRECTORCELESTE GERMAN M.D.Performed By: #### CBC, BMP ####[place] [address] USABasophils/100 WBC (Bld)0.1 %Normal.The [facility] Physician GroupComment on above:Performed By: #### CBC, BMP ####[place] [address] USAEosinophils (Bld) [#/Vol]0.0 10*3/uLNormal 0.0-0.45The [facility] Physician GroupComment on above:Performed By: #### CBC, BMP ####[place] [address] [place] Eosinophils/100 WBC (Bld)0.0 %Normal.The [facility] Physician GroupComment on above:Performed By: #### CBC, BMP ####[place] [address] USAErythrocyte distribution width (RBC) [Ratio]15.8 % High12.0-14.8The [facility] Physician GroupComment on above:Performed By: #### CBC, BMP ####[place] [address] USAHematocrit (Bld) [Volume fraction]32.2 %Low38.8-50.0The [facility] Physician GroupComment on above:Performed By: #### CBC, BMP ####[place] [address] USAHemoglobin (Bld) [Mass/Vol]10.8 g/dL Low13.0-17.0The [facility] Physician GroupComment on above:Performed By: #### CBC, BMP ####[place] [address] USALymphocytes (Bld) [#/Vol]0.5 10*3/uLLow1.00-4.8The [facility] Physician Group Comment on above:Performed By: #### CBC, BMP ####[place] [address] USALymphocytes/100 WBC (Bld)10.2 %Normal. The [facility] Physician GroupComment on above:Performed By: #### CBC, BMP ####[address] (RBC) [Entitic mass]30.9 awKajdvn84.5-35.2The [facility] Physician GroupComment on above:Performed By: #### CBC, BMP ####[address] (RBC) [Entitic vol]91.9 eFOffwid42.5-101 The [facility] Physician GroupComment on above:Performed By: #### CBC, BMP ####[place] [address] USAMean Corpuscular HGB Conc33.6 g/jWUfcaus88.5-35.6The [facility] Physician GroupComment on above:Performed By: #### CBC, BMP ####[place] [address] USAMonocytes (Bld) [#/Vol]0.3 10*3/uLNormal 0.0-0.8The [facility] Physician GroupComment on above:Performed By: #### CBC, BMP ####[place] [address] [place] Monocytes/100 WBC (Bld)5.4 %Normal.The [facility] Physician GroupComment on above:Performed By: #### CBC, BMP ####[place] [address] USANeutrophils (Bld) [#/Vol]4.3 10*3/uLNormal1.8-7.7The [facility] Physician GroupComment on above:Performed By: #### CBC, BMP ####[place] [address] [place] Neutrophils/100 WBC (Bld)84.3 %Normal.The [facility] Physician GroupComment on above:Performed By: #### CBC, BMP ####[place] [address] USANRBC%0.1 /100{WBC}Normal0-0.5The [facility] Physician GroupComment on above:Performed By: #### CBC, BMP ####[address] [address] USAPlatelet mean volume (Bld) [Entitic vol]7.2 fLNormal6.6-10.1The [facility] Physician GroupComment on above: Performed By: #### CBC, BMP ####[place] [address] USAPlatelets (Bld) [#/Vol]208 10*3/nHKvamcb322-067Zdu [facility] Physician GroupComment on above:Performed By: #### CBC, BMP ####[place] [address] USARBC (Bld) [#/Vol]3.50 10*6/uLLow3.90-5.60The [facility] Physician GroupComment on above:Performed By: #### CBC, BMP ####[address] [address] USAWBC (Bld) [#/Vol]5.1 10*3/uLNormal4.1-10.5The [facility] Physician GroupComment on above:Performed By: #### CBC, BMP ####[place] [address] USAWhite Blood Count5.1 [CFU]/mLNormal4.1-10.5The [facility] Physician GroupComment on above:Performed By: #### CBC, BMP ####[place] [address] USAGlucose Poct Glucometerson 13-85-9267Jhhvlyt [Mass/Vol]111 mg/dLNormalThe [facility] Physician GroupComment on above:Result Comment: Random Glucose Reference Range is dependent on time and content of last meal. Glucose of more than 200 mg/dL in a nonstressed, ambulatory subject supports the diagnosis of Diabetes Mellitus.PERFORMED BY:[place] [address] [address] DOMINGUEZ [place] [phone] MEDICAL ELÍAS GERMAN M.D.Performed By: #### GLULS ####Point of Care testing, Glucose [Mass/Vol]135 mg/dLAdventHealth Deltona ER Physician GroupComment on above: Result Comment: Random Glucose Reference Range is dependent on time and content of last meal. Glucose of more than 200 mg/dL in a nonstressed, ambulatory subject supports the diagnosis of Diabetes Mellitus.PERFORMED BY:[address] [place], [place] [phone] MEDICAL ELÍAS GERMAN M.D.Performed By: #### GLULS ####Point of Care testing,Ztfjqcu4Qvj2: Cleaned MeterNoTransylvania Regional Hospital Physician GroupComment on above:Result Comment: PERFORMED BY:[address] [place]Jeremi[place], [place] [phone] MEDICAL ELÍAS GERMAN M.D.Performed By: #### GLULS ####Point of Care testing,Glucose [Mass/Vol]120 mg/dLNoTransylvania Regional Hospital Physician GroupComment on above:Result Comment: Random Glucose Reference Range is dependent on time and content of last meal. Glucose of more than 200 mg/dL in a nonstressed, ambulatory subject supports the diagnosis of Diabetes Mellitus.Performed By: #### GLULS ####Point of Care testing,Triglycerideson 46-97-4593Akafdeslorws [Mass/Vol]118 mg/tLAmnmrj89-640 The [facility] Physician GroupComment on above:Result Comment: TRIG ATP III CLASSIFICATION TRIG less than 150 mg/dL Normal TRIG 150-199 mg/dL Borderline high TRIG 200-500 mg/dL High TRIG greater than 500 mg/dL Very high Standard traceable to the Center for Disease Conrtrol and Prevention (CDC) test method.PERFORMED BY:[place] [address] [place] [place], [place] [phone] MEDICAL ELÍAS GERMAN M.D.Performed By: #### TRIG ####[address] [address] USAXR chest 1V portableon 48-59-4931NS chest 1V portableNoOur Lady of Mercy HospitalArterial Blood Gason 09-10-9844IYE Base Excess6.3 mmol/LHigh -3.0-3.0[facility] Physician GroupComment on above:Performed By: #### ABG ####Point of Care testing,ABG Frac Inspired O230 %NormalThe [facility] Physician GroupComment on above:Performed By: #### ABG ####Point of Care testing,ABG Oxygen Content6.6 mmol/LNormal6.6-9.7The [facility] Physician GroupComment on above:Performed By: #### ABG ####Point of Care testing,ABG Oxygen Cgcjwnhuta01.1 %Low95.0-100.0[facility] Physician GroupComment on above:Performed By: #### ABG ####Point of Care testing,ABG ERS038.5 mm[Hg]High35.0-45.0[facility] Physician GroupComment on above:Performed By: #### ABG ####Point of Care testing,ABG ATSL9RgxstuTscAdventHealth Deltona ER Physician GroupComment on above:Performed By: #### ABG ####Point of Care testing,ABG PH7.28Ypbivh1.35-7.45[facility] Physician [facility] BiloxiComment on above:Performed By: #### ABG ####Point of Care testing,ABG PO264.0 mm[Hg]Low80.0-100.0The [facility] Physician GroupComment on above:Performed By: #### ABG ####Point of Care testing,ABG TV500 mLNormalThe [facility] Physician GroupComment on above:Performed By: #### ABG ####Point of Care testing,CO2 [Moles/Vol]33.0 mmol/LHigh23.0-27.0[facility] Physician GroupComment on above:Performed By: #### ABG ####Point of Care testing,HCO3 (Bld) [Moles/Vol]31.5 mmol/LHigh23.0-29.0The [facility] Physician GroupComment on above:Performed By: #### ABG ####Point of Care testing,Respiratory Critical NormalThe [facility] Physician [facility] BiloxiComment on above:Result Comment: Critical Value called on: 09/22/2025 at 06:30PERFORMED BY:[place] [address] [place] [place], [place] [phone] MEDICAL DIRECTORCELESTE GERMAN M.D.Performed By: #### ABG ####Point of Care testing, Set Respiratory Txhn42TiquwzYzwTransylvania Regional Hospital Physician GroupComment on above: Performed By: #### ABG ####Point of Care testing,VBG Draw SiteRight Brachial NormalThe [facility] Physician GroupComment on above:Performed By: #### ABG ####Point of Care testing,Ventilator ModeACNoTransylvania [facility] Hospital Physician Group Comment on above:Performed By: #### ABG ####Point of Care testing,Basic Metabolic Panelon 24-55-4762Emljg gap [Moles/Vol]8.6 mmol/LNormal6.0-15.0The [facility] Physician GroupComment on above:Performed By: #### CBC, BMP ####[address] [address] USACalcium [Mass/Vol]8.8 mg/dLNormal8.6-10.3The [facility] Physician GroupComment on above: Performed By: #### CBC, BMP ####[address] [address] USAChloride [Moles/Vol]100 mmol/PRizqrx08-713Wvj [facility] Physician GroupComment on above:Performed By: #### CBC, BMP ####[address] [address] USACO2 [Moles/Vol]32.3 mmol/LHigh21.0-31.0The [facility] Physician GroupComment on above:Performed By: #### CBC, BMP ####[address] [address] USACreatinine [Mass/Vol]1.23 mg/dLNormal0.70-1.30The [facility] Physician GroupComment on above:Performed By: #### CBC, BMP ####[address] [address] [place] Creatinine Clr Calc Kbvswpxe93.28NormalThMinidoka Memorial Hospital Physician [facility] BiloxiComment on above:Result Comment: PERFORMED BY:[address] [place], [place] [phone] MEDICAL DIRECTORCELESTE GERMAN M.D.Performed By: #### CBC, BMP ####[address] [address] USAGFR/1.73 sq M.predicted MDRD (S/P/Bld) [Vol rate/Area]mL/min/{1.73_m2}NormalThe [facility] Physician [facility] BiloxiComment on above: Performed By: #### CBC, BMP ####[address] [address] USAGlucose [Mass/Vol]129 mg/yQWlif24-086Alj [facility] Physician GroupComment on above:Result Comment: Random Glucose Reference Range is dependent on time and content of last meal. Glucose of more than 200 mg/dL in a nonstressed, ambulatory subject supports the diagnosis of Diabetes Mellitus. ADA recommended reference rangePerformed By: #### CBC, BMP ####[address] [address] USAPotassium [Moles/Vol] 4.9 mmol/LNormal3.5-5.1The [facility] Physician GroupComment on above:Result Comment: Hemolysis is present at a level that could interfere with the result. Contact lab if redraw is requiredPerformed By: #### CBC, BMP ####[address] [address] USASodium [Moles/Vol]136 mmol/NYnchpw854-327Dlx [facility] Physician GroupComment on above:Performed By: #### CBC, BMP ####[address] [address] USAUrea nitrogen [Mass/Vol]28 mg/dLHigh7-25The [facility] Physician Group Comment on above:Performed By: #### CBC, BMP ####[address] [address] USAComplete Blood Count Auto Diffon 37-33-3384Akgzhyufk (Bld) [#/Vol]0.0 10*3/uLNormal0.0-0.2The [facility] Physician GroupComment on above:Result Comment: PERFORMED BY:[address] [place], [place] [phone] MEDICAL DIRECTORCELESTE GERMAN M.D.Performed By: #### CBC, BMP ####[address] [address] USABasophils/100 WBC (Bld)0.3 % Normal.The [facility] Physician GroupComment on above:Performed By: #### CBC, BMP ####[address] [address] [place] Eosinophils (Bld) [#/Vol]0.0 10*3/uLNormal0.0-0.45The [facility] Physician Group Comment on above:Performed By: #### CBC, BMP ####[address] [address] USAEosinophils/100 WBC (Bld)0.2 %Normal. The [facility] Physician GroupComment on above:Performed By: #### CBC, BMP ####[place] [address] [place] Erythrocyte distribution width (RBC) [Ratio]15.5 %High12.0-14.8The [facility] Physician GroupComment on above:Performed By: #### CBC, BMP ####[address] [address] USAHematocrit (Bld) [Volume fraction]32.4 %Low38.8-50.0The [facility] Physician GroupComment on above:Performed By: #### CBC, BMP ####[address] [address] USAHemoglobin (Bld) [Mass/Vol]10.7 g/dLLow13.0-17.0The [facility] Physician GroupComment on above:Performed By: #### CBC, BMP ####[place] [address] [place] Lymphocytes (Bld) [#/Vol]0.5 10*3/uLLow1.00-4.8The [facility] Physician Group Comment on above:Performed By: #### CBC, BMP ####[place] [address] USALymphocytes/100 WBC (Bld)8.8 %Normal. The [facility] Physician GroupComment on above:Performed By: #### CBC, BMP ####[address] (RBC) [Entitic mass]30.5 pmPmeytu68.5-35.2The [facility] Physician GroupComment on above:Performed By: #### CBC, BMP ####[address] (RBC) [Entitic vol]92.5 dNDijhwy45.5-101 The [facility] Physician GroupComment on above:Performed By: #### CBC, BMP ####[place] [address] USAMean Corpuscular HGB Conc33.0 g/hDOsziyn09.5-35.6The [facility] Physician GroupComment on above:Performed By: #### CBC, BMP ####[place] [address] USAMonocytes (Bld) [#/Vol]0.3 10*3/uLNormal 0.0-0.8The [facility] Physician GroupComment on above:Performed By: #### CBC, BMP ####[place] [address] [place] Monocytes/100 WBC (Bld)5.5 %Normal.The [facility] Physician GroupComment on above:Performed By: #### CBC, BMP ####[place] [address] USANeutrophils (Bld) [#/Vol]4.5 10*3/uLNormal1.8-7.7The [facility] Physician GroupComment on above:Performed By: #### CBC, BMP ####[place] [address] [place] Neutrophils/100 WBC (Bld)85.2 %Normal.The [facility] Physician GroupComment on above:Performed By: #### CBC, BMP ####[place] [address] USANRBC%0.2 /100{WBC}Normal0-0.5The [facility] Physician GroupComment on above:Performed By: #### CBC, BMP ####[place] [address] USAPlatelet mean volume (Bld) [Entitic vol]7.3 fLNormal6.6-10.1The [facility] Physician GroupComment on above: Performed By: #### CBC, BMP ####[place] [address] USAPlatelets (Bld) [#/Vol]232 10*3/aEYipdol563-012Kbf [facility] Physician GroupComment on above:Performed By: #### CBC, BMP ####[place] [address] USARBC (Bld) [#/Vol]3.50 10*6/uLLow3.90-5.60The [facility] Physician GroupComment on above:Performed By: #### CBC, BMP ####[place] [address] USAWBC (Bld) [#/Vol]5.3 10*3/uLNormal4.1-10.5The [facility] Physician GroupComment on above:Performed By: #### CBC, BMP ####[place] [address] USAWhite Blood Count5.3 [CFU]/mLNormal4.1-10.5The [facility] Physician GroupComment on above:Performed By: #### CBC, BMP ####[address] [address] [address] [place] [address] USAGlucose Poct Glucometerson 59-66-6562Dpgjlgx7Yui3: Cleaned MeterAdventHealth Deltona ER Physician GroupComment on above:Result Comment: PERFORMED BY:[address] [place] [address] [address] [place], [place] [phone] MEDICAL ELÍAS GERMAN M.D.Performed By: #### GLULS ####Point of Care testing,Glucose [Mass/Vol]148 mg/dLAdventHealth Deltona ER Physician GroupComment on above:Result Comment: Random Glucose Reference Range is dependent on time and content of last meal. Glucose of more than 200 mg/dL in a nonstressed, ambulatory subject supports the diagnosis of Diabetes Mellitus.Performed By: #### GLULS ####Point of Care testing,Glucose [Mass/Vol]124 mg/dLAdventHealth Deltona ER Physician GroupComment on above:Result Comment: Random Glucose Reference Range is dependent on time and content of last meal. Glucose of more than 200 mg/dL in a nonstressed, ambulatory subject supports the diagnosis of Diabetes Mellitus.PERFORMED BY:[address] [place] [address] [place] [place]UEZ[place], [place] [phone] MEDICAL ELÍAS GERMAN M.D.Performed By: #### GLULS ####Point of Care testing, Vwciuzy9Xck3: Cleaned MeterAdventHealth Deltona ER Physician GroupComment on above: Result Comment: PERFORMED BY:[address] [address]IG[place], [place] [phone] MEDICAL ELÍAS GERMAN M.D.Performed By: #### GLULS ####Point of Care testing,Glucose [Mass/Vol]161 mg/dLAdventHealth Deltona ER Physician GroupComment on above:Result Comment: Random Glucose Reference Range is dependent on time and content of last meal. Glucose of more than 200 mg/dL in a nonstressed, ambulatory subject supports the diagnosis of Diabetes Mellitus.Performed By: #### GLULS ####Point of Care testing,Glucose [Mass/Vol]172 mg/dLAdventHealth Deltona ER Physician GroupComment on above:Result Comment: Random Glucose Reference Range is dependent on time and content of last meal. Glucose of more than 200 mg/dL in a nonstressed, ambulatory subject supports the diagnosis of Diabetes Mellitus.PERFORMED BY:[facility] [place] [phone] MEDICAL DIRECTORCELESTE GERMAN M.D.Performed By: #### GLULS ####Point of Care testing,XR chest 1V portableon 64-44-8488HD chest 1V portableNoTransylvania Regional Hospital Physician GroupArterial Blood Gason 55-25-3300BMY Base Excess5.3 mmol/LHigh-3.0-3.0[facility] Physician GroupComment on above: Performed By: #### ABG ####Point of Care testing,ABG Frac Inspired O230 %Normal [facility] Physician GroupComment on above:Performed By: #### ABG ####Point of Care testing,ABG Oxygen Content6.3 mmol/LLow6.6-9.7The [facility] Physician GroupComment on above:Performed By: #### ABG ####Point of Care testing,ABG Oxygen Pkxnuqjjyi94.6 %Low95.0-100.0The [facility] Physician GroupComment on above:Performed By: #### ABG ####Point of Care testing,ABG QQZ811.5 mm[Hg]Normal 35.0-45.0The [facility] Physician GroupComment on above:Performed By: #### ABG ####Point of Care testing,ABG INQX8ZgtyphFkzHCA [facility] Physician GroupComment on above:Performed By: #### ABG ####Point of Care testing,ABG PH7.17Hwvt7.35-7.45 [facility] Physician GroupComment on above:Performed By: #### ABG ####Point of Care testing,ABG PO268.3 mm[Hg]Low80.0-100.0The [facility] Physician Group Comment on above:Performed By: #### ABG ####Point of Care testing,ABG TV500 mL NormalThe [facility] Physician GroupComment on above:Performed By: #### ABG ####Point of Care testing,CO2 [Moles/Vol]29.4 mmol/LHigh23.0-27.0The [facility] Physician GroupComment on above:Performed By: #### ABG ####Point of Care testing,HCO3 (Bld) [Moles/Vol]28.3 mmol/QMsrrco21.0-29.0The [facility] Physician GroupComment on above:Performed By: #### ABG ####Point of Care testing, Respiratory CriticalNoTransylvania Regional Hospital Physician GroupComment on above:Result Comment: Critical Value called on: 09/21/2025 at 04:46PERFORMED BY:[address] [place], [place] [phone] MEDICAL DIRECTORCELESTE GERMAN M.D.Performed By: #### ABG ####Point of Care testing,Set Respiratory Wbzd91KbierrGyvTransylvania Regional Hospital Physician [facility] BiloxiComment on above:Performed By: #### ABG ####Point of Care testing,VBG Draw SiteRight Radial NormalThe [facility] Physician GroupComment on above:Performed By: #### ABG ####Point of Care testing,Ventilator ModeACNoTransylvania Regional Hospital Physician [facility] Comment on above:Performed By: #### ABG ####Point of Care testing,Basic Metabolic Panelon 03-01-0677Byojf gap [Moles/Vol]8.8 mmol/LNormal6.0-15.0The [facility] Physician GroupComment on above:Performed By: #### CBC, BMP ####[address] [address] USACalcium [Mass/Vol]8.5 mg/dLLow8.6-10.3The [facility] Physician GroupComment on above: Performed By: #### CBC, BMP ####[address] [place] [address] USAChloride [Moles/Vol]98 mmol/MSfzglw06-965Nmo [facility] Physician GroupComment on above:Performed By: #### CBC, BMP ####[address] [place] [address] USACO2 [Moles/Vol]31.6 mmol/LHigh21.0-31.0The [facility] Physician GroupComment on above:Performed By: #### CBC, BMP ####[address] [address] USACreatinine [Mass/Vol]1.31 mg/dLHigh0.70-1.30The [facility] Physician GroupComment on above:Performed By: #### CBC, BMP ####[address] [address] [place] Creatinine Clr Calc Qtmwmxhq20.72NormalThe [facility] Physician GroupComment on above:Result Comment: PERFORMED BY:[address] [place], [place] [phone] MEDICAL ELÍAS GERMAN M.D.Performed By: #### CBC, BMP ####[id number] USAGFR/1.73 sq M.predicted MDRD (S/P/Bld) [Vol rate/Area]59.660 mL/min/{1.73_m2}NormalThe [facility] Physician GroupComment on above:Performed By: #### CBC, BMP ####[address] [address] USAGlucose [Mass/Vol]127 mg/nKLmna72-545Rpo [facility] Physician GroupComment on above:Result Comment: Random Glucose Reference Range is dependent on time and content of last meal. Glucose of more than 200 mg/dL in a nonstressed, ambulatory subject supports the diagnosis of Diabetes Mellitus. ADA recommended reference rangePerformed By: #### CBC, BMP ####[address] [address] USAPotassium [Moles/Vol] 4.4 mmol/LNormal3.5-5.1The [facility] Physician GroupComment on above:Performed By: #### CBC, BMP ####[address] [address] USASodium [Moles/Vol]134 mmol/YGbw737-770Rnm [facility] Physician Group Comment on above:Performed By: #### CBC, BMP ####[address] USAUrea nitrogen [Mass/Vol]32 mg/dLHigh 7-25The [facility] Physician GroupComment on above:Performed By: #### CBC, BMP ####[address] [facility] Complete Blood Count Auto Diffon 95-95-8035Rdibqujkk (Bld) [#/Vol]0.0 10*3/uL Normal0.0-0.2The [facility] Physician GroupComment on above:Result Comment: PERFORMED BY:[address] [place], [place] [phone] MEDICAL DIRECTORCELESTE GERMAN M.D.Performed By: #### CBC, BMP ####[place] [address] USABasophils/100 WBC (Bld)0.2 %Normal.The [facility] Physician GroupComment on above:Performed By: #### CBC, BMP ####[place] [address] USAEosinophils (Bld) [#/Vol]0.0 10*3/uLNormal 0.0-0.45The [facility] Physician GroupComment on above:Performed By: #### CBC, BMP ####[place] [address] [place] Eosinophils/100 WBC (Bld)0.0 %Normal.The [facility] Physician GroupComment on above:Performed By: #### CBC, BMP ####[place] [address] USAErythrocyte distribution width (RBC) [Ratio]15.8 % High12.0-14.8The [facility] Physician GroupComment on above:Performed By: #### CBC, BMP ####[place] [address] USAHematocrit (Bld) [Volume fraction]29.6 %Low38.8-50.0The [facility] Physician GroupComment on above:Performed By: #### CBC, BMP ####[place] [address] USAHemoglobin (Bld) [Mass/Vol]10.0 g/dL Low13.0-17.0The [facility] Physician GroupComment on above:Performed By: #### CBC, BMP ####[place] [address] USALymphocytes (Bld) [#/Vol]0.5 10*3/uLLow1.00-4.8The [facility] Physician Group Comment on above:Performed By: #### CBC, BMP ####[place] [address] USALymphocytes/100 WBC (Bld)10.4 %Normal. The [facility] Physician GroupComment on above:Performed By: #### CBC, BMP ####[address] StreetMCH (RBC) [Entitic mass]31.0 ncZphgjw30.5-35.2The [facility] Physician GroupComment on above:Performed By: #### CBC, BMP ####[address] StreetMCV (RBC) [Entitic vol]91.2 rGIspxuq93.5-101 The [facility] Physician GroupComment on above:Performed By: #### CBC, BMP ####[place] [address] USAMean Corpuscular HGB Conc33.9 g/vOKseczd21.5-35.6The [facility] Physician GroupComment on above:Performed By: #### CBC, BMP ####[place] [address] USAMonocytes (Bld) [#/Vol]0.3 10*3/uLNormal 0.0-0.8The [facility] Physician GroupComment on above:Performed By: #### CBC, BMP ####[address] [address] [place] Monocytes/100 WBC (Bld)5.6 %Normal.The [facility] Physician GroupComment on above:Performed By: #### CBC, BMP ####[address] [address] USANeutrophils (Bld) [#/Vol]4.2 10*3/uLNormal1.8-7.7The [facility] Physician GroupComment on above:Performed By: #### CBC, BMP ####[address] [address] [place] Neutrophils/100 WBC (Bld)83.8 %Normal.The [facility] Physician GroupComment on above:Performed By: #### CBC, BMP ####[address] [address] USANRBC%0.1 /100{WBC}Normal0-0.5The [facility] Physician GroupComment on above:Performed By: #### CBC, BMP ####[address] [address] USAPlatelet mean volume (Bld) [Entitic vol]7.3 fLNormal6.6-10.1The [facility] Physician GroupComment on above: Performed By: #### CBC, BMP ####[address] [address] USAPlatelets (Bld) [#/Vol]220 10*3/oPKjfswl077-782Wnp [facility] Physician GroupComment on above:Performed By: #### CBC, BMP ####[address] [address] USARBC (Bld) [#/Vol]3.24 10*6/uLLow3.90-5.60The [facility] Physician GroupComment on above:Performed By: #### CBC, BMP ####[address] [address] USAWBC (Bld) [#/Vol]5.0 10*3/uLNormal4.1-10.5The [facility] Physician GroupComment on above:Performed By: #### CBC, BMP ####[facility] [place] [address] USAWhite Blood Count5.0 [CFU]/mLNormal4.1-10.5The [facility] Physician GroupComment on above:Performed By: #### CBC, BMP ####[facility] [place] [address] USAGlucose Poct Glucometerson 86-86-9753Kaxfjoi [Mass/Vol]129 mg/dLNoTransylvania Regional Hospital Physician GroupComment on above:Result Comment: Random Glucose Reference Range is dependent on time and content of last meal. Glucose of more than 200 mg/dL in a nonstressed, ambulatory subject supports the diagnosis of Diabetes Mellitus.PERFORMED BY:[address] [place], [place] [phone] MEDICAL DIRECTORCELESTE GERMAN M.D.Performed By: #### GLULS ####Point of Care testing, Glucose [Mass/Vol]122 mg/dLNoTransylvania Regional Hospital Physician GroupComment on above: Result Comment: Random Glucose Reference Range is dependent on time and content of last meal. Glucose of more than 200 mg/dL in a nonstressed, ambulatory subject supports the diagnosis of Diabetes Mellitus.PERFORMED BY:[address] [place], [place] [phone] MEDICAL DIRECTORCELESTE GERMAN M.D.Performed By: #### GLULS ####Point of Care testing,XR chest 1V portableon 69-24-7593EL chest 1V portableNoTransylvania Regional Hospital Physician GroupArterial Blood Gason 78-60-6012XNJ Base Excess5.1 mmol/LHigh -3.0-3.0The [facility] Physician GroupComment on above:Performed By: #### ABG ####Point of Care testing,ABG Frac Inspired O240 %NormalThe [facility] Physician GroupComment on above:Performed By: #### ABG ####Point of Care testing,ABG Oxygen Content6.4 mmol/LLow6.6-9.7The [facility] Physician GroupComment on above: Performed By: #### ABG ####Point of Care testing,ABG Oxygen Qkabbhpppk93.9 % Xdkpyt25.0-100.0The [facility] Physician GroupComment on above:Performed By: #### ABG ####Point of Care testing,ABG RHC446.8 mm[Hg]Wnivre72.0-45.0The [facility] Physician GroupComment on above:Performed By: #### ABG ####Point of Care testing,ABG AYVI9KmsxbcTsuHCA [facility] Physician GroupComment on above:Performed By: #### ABG ####Point of Care testing,ABG PH7.71Knbleb7.35-7.45The [facility] Physician GroupComment on above:Performed By: #### ABG ####Point of Care testing,ABG PO278.6 mm[Hg]Low80.0-100.0The [facility] Physician GroupComment on above:Performed By: #### ABG ####Point of Care testing,ABG TV500 mLNormalThe [facility] Physician GroupComment on above:Performed By: #### ABG ####Point of Care testing,CO2 [Moles/Vol]31.3 mmol/LHigh23.0-27.0The [facility] Physician GroupComment on above:Performed By: #### ABG ####Point of Care testing,HCO3 (Bld) [Moles/Vol]29.9 mmol/LHigh23.0-29.0The [facility] Physician GroupComment on above:Performed By: #### ABG ####Point of Care testing,Respiratory Critical NormalThe [facility] Physician GroupComment on above:Result Comment: Critical Value called on: 09/20/2025 at 06:18PERFORMED BY:[address] [place], [place] [phone] MEDICAL DIRECTORCELESTE GERMAN M.D.Performed By: #### ABG ####Point of Care testing, Set Respiratory Ibxl36VyreowHqh [facility] Physician GroupComment on above: Performed By: #### ABG ####Point of Care testing,VBG Draw SiteRight Brachial NormalThe [facility] Physician GroupComment on above:Performed By: #### ABG ####Point of Care testing,Ventilator ModeACNoTransylvania [facility] Hospital Physician Group Comment on above:Performed By: #### ABG ####Point of Care testing,Basic Metabolic Panelon 19-12-0848Nouct gap [Moles/Vol]10.6 mmol/LNormal6.0-15.0The [facility] Physician GroupComment on above:Performed By: #### CBC, BMP ####[address] [address] USACalcium [Mass/Vol]8.6 mg/dLNormal8.6-10.3The [facility] Physician [facility] BiloxiComment on above: Performed By: #### CBC, BMP ####[address] [address] USAChloride [Moles/Vol]100 mmol/SAvohsu09-825Wke [facility] Physician [facility] BiloxiComment on above:Performed By: #### CBC, BMP ####[address] [address] USACO2 [Moles/Vol]30.0 mmol/LBevrjp65.0-31.0The [facility] Physician [facility] BiloxiComment on above:Performed By: #### CBC, BMP ####[address] [address] USACreatinine [Mass/Vol]1.69 mg/dLHigh0.70-1.30The [facility] Physician [facility] BiloxiComment on above:Performed By: #### CBC, BMP ####[address] [address] [place] Creatinine Clr Calc Kadyyhyb52.42NoTransylvania Regional Hospital Physician [facility] BiloxiComment on above:Result Comment: PERFORMED BY:[address] [address] [address] [place], [place] [phone] MEDICAL ELÍAS GERMAN M.D.Performed By: #### CBC, BMP ####[address] [address] USAGFR/1.73 sq M.predicted MDRD (S/P/Bld) [Vol rate/Area]43.949 mL/min/{1.73_m2}NormalThe [facility] Physician GroupComment on above:Performed By: #### CBC, BMP ####[address] USAGlucose [Mass/Vol]119 mg/tHWxph30-416Yzq [facility] Physician GroupComment on above:Result Comment: Random Glucose Reference Range is dependent on time and content of last meal. Glucose of more than 200 mg/dL in a nonstressed, ambulatory subject supports the diagnosis of Diabetes Mellitus. ADA recommended reference rangePerformed By: #### CBC, BMP ####[address] USAPotassium [Moles/Vol] 4.6 mmol/LNormal3.5-5.1The [facility] Physician GroupComment on above:Performed By: #### CBC, BMP ####[address] USASodium [Moles/Vol]136 mmol/GTfbyic109-260Ilk [facility] Physician GroupComment on above:Performed By: #### CBC, BMP ####[address] [address] USAUrea nitrogen [Mass/Vol]32 mg/dLHigh 7-25The [facility] Physician GroupComment on above:Performed By: #### CBC, BMP ####[address] [facility] Complete Blood Count Auto Diffon 59-69-4156Hzxnkdaog (Bld) [#/Vol]0.0 10*3/uL Normal0.0-0.2The [facility]Lewistown HospitalComment on above:Result Comment: PERFORMED BY:[address] [place], [place] [phone] MEDICAL ELÍAS GERMAN M.D.Performed By: #### CBC, BMP ####[address] [address] USABasophils/100 WBC (Bld)0.1 %Normal.The [facility] Physician GroupComment on above:Performed By: #### CBC, BMP ####[place] [address] USAEosinophils (Bld) [#/Vol]0.0 10*3/uLNormal 0.0-0.45The [facility] Physician GroupComment on above:Performed By: #### CBC, BMP ####[place] [address] [place] Eosinophils/100 WBC (Bld)0.0 %Normal.The [facility] Physician GroupComment on above:Performed By: #### CBC, BMP ####[place] [address] USAErythrocyte distribution width (RBC) [Ratio]15.6 % High12.0-14.8The [facility] Physician GroupComment on above:Performed By: #### CBC, BMP ####[place] [address] USAHematocrit (Bld) [Volume fraction]30.9 %Low38.8-50.0The [facility] Physician GroupComment on above:Performed By: #### CBC, BMP ####[place] [address] USAHemoglobin (Bld) [Mass/Vol]10.3 g/dL Low13.0-17.0The [facility] Physician GroupComment on above:Performed By: #### CBC, BMP ####[place] [address] USALymphocytes (Bld) [#/Vol]0.5 10*3/uLLow1.00-4.8The [facility] Physician Group Comment on above:Performed By: #### CBC, BMP ####[place] [address] USALymphocytes/100 WBC (Bld)10.0 %Normal. The [facility] Physician GroupComment on above:Performed By: #### CBC, BMP ####[address] USAMCH (RBC) [Entitic mass]30.8 ikTxefbs36.5-35.2The [facility] Physician GroupComment on above:Performed By: #### CBC, BMP ####[address] (RBC) [Entitic vol]92.8 zKTrnfog53.5-101 The [facility] Physician GroupComment on above:Performed By: #### CBC, BMP ####[place] [address] USAMean Corpuscular HGB Conc33.2 g/hXNsuxcc99.5-35.6The [facility] Physician GroupComment on above:Performed By: #### CBC, BMP ####[place] [address] USAMonocytes (Bld) [#/Vol]0.5 10*3/uLNormal 0.0-0.8The [facility] Physician GroupComment on above:Performed By: #### CBC, BMP ####[place] [address] [place] Monocytes/100 WBC (Bld)10.3 %Normal.The [facility] Physician GroupComment on above:Performed By: #### CBC, BMP ####[place] [address] USANeutrophils (Bld) [#/Vol]4.1 10*3/uLNormal1.8-7.7The [facility] Physician GroupComment on above:Performed By: #### CBC, BMP ####[place] [address] [place] Neutrophils/100 WBC (Bld)79.6 %Normal.The [facility] Physician GroupComment on above:Performed By: #### CBC, BMP ####[place] [address] USANRBC%0.5 /100{WBC}Normal0-0.5The [facility] Physician GroupComment on above:Performed By: #### CBC, BMP ####[address] [address] USAPlatelet mean volume (Bld) [Entitic vol]7.4 fLNormal6.6-10.1The [facility] Physician GroupComment on above: Performed By: #### CBC, BMP ####[address] [address] USAPlatelets (Bld) [#/Vol]250 10*3/eMPfubuo583-696Vni [facility] Physician GroupComment on above:Performed By: #### CBC, BMP ####[address] [address] USARBC (Bld) [#/Vol]3.33 10*6/uLLow3.90-5.60The [facility] Physician GroupComment on above:Performed By: #### CBC, BMP ####[address] [address] USAWBC (Bld) [#/Vol]5.2 10*3/uLNormal4.1-10.5The [facility] Physician GroupComment on above:Performed By: #### CBC, BMP ####[address] [address] USAWhite Blood Count5.2 [CFU]/mLNormal4.1-10.5The [facility] Physician GroupComment on above:Performed By: #### CBC, BMP ####[address] [address] USAECG 12 lead ECGon 23-20-3989VYY 12 lead ECGNoTransylvania Regional Hospital Physician [facility] BiloxiGlucose Poct Glucometerson 75-88-0647Atohzzz [Mass/Vol]155 mg/dLNoTransylvania Regional Hospital Physician [facility] BiloxiComment on above:Result Comment: Random Glucose Reference Range is dependent on time and content of last meal. Glucose of more than 200 mg/dL in a nonstressed, ambulatory subject supports the diagnosis of Diabetes Mellitus.PERFORMED BY:[address] [place], [place] [phone] MEDICAL DIRECTORCELSETE GERMAN M.D.Performed By: #### GLULS ####Point of Care testing, Polsggb5Mii5: Cleaned MeterAdventHealth Deltona ER Physician GroupComment on above: Result Comment: PERFORMED BY:[address] [place], [place] [phone] MEDICAL DIRECTORCELESTE GERMAN M.D.Performed By: #### GLULS ####Point of Care testing,Glucose [Mass/Vol]126 mg/dLAdventHealth Deltona ER Physician GroupComment on above:Result Comment: Random Glucose Reference Range is dependent on time and content of last meal. Glucose of more than 200 mg/dL in a nonstressed, ambulatory subject supports the diagnosis of Diabetes Mellitus.Performed By: #### GLULS ####Point of Care testing,Ydqvoeo8Lqy2: Cleaned MeterAdventHealth Deltona ER Physician GroupComment on above:Result Comment: PERFORMED BY:[address] [place], [place] [phone] MEDICAL DIRECTORCELESTE GERMAN M.D.Performed By: #### GLULS ####Point of Care testing,Glucose [Mass/Vol]120 mg/dLAdventHealth Deltona ER Physician GroupComment on above:Result Comment: Random Glucose Reference Range is dependent on time and content of last meal. Glucose of more than 200 mg/dL in a nonstressed, ambulatory subject supports the diagnosis of Diabetes Mellitus.Performed By: #### GLULS ####Point of Care testing, renal BIon 75-18-7440BO renal BINormalThe [facility] Physician [facility]oxiXR chest 1V portableon 52-52-5601AX chest 1V portableAdventHealth Deltona ER Physician GroupAerobic Cultureon 62-70-7767Qcrhicu CultureAdventHealth Deltona ER Physician [facility] BiloxiComment on above:Performed By: #### AERC, GS ####[address] [address] USAArterial Blood Gason 50-56-7555NXX Base Excess2.5 mmol/LNormal-3.0-3.0The [facility] Physician GroupComment on above:Performed By: #### ABG ####Point of Care testing,ABG Frac Inspired O270 % NormalThe [facility] Physician GroupComment on above:Performed By: #### ABG ####Point of Care testing,ABG Oxygen Content7.8 mmol/LNormal6.6-9.7The [facility] Physician GroupComment on above:Performed By: #### ABG ####Point of Care testing,ABG Oxygen Wbwvgpxxce60.0 %Wpfphu15.0-100.0The [facility] Physician Group Comment on above:Performed By: #### ABG ####Point of Care testing,ABG KAX670.9 mm[Hg]Off scale high35.0-45.0The [facility] Physician GroupComment on above: Performed By: #### ABG ####Point of Care testing,ABG QQNP1EipdrlHicHCA [facility] Physician GroupComment on above:Performed By: #### ABG ####Point of Care testing,ABG PH7.32Low7.35-7.45The [facility] Physician GroupComment on above: Performed By: #### ABG ####Point of Care testing,ABG VK6319.4 mm[Hg]Off scale high80.0-100.0The [facility] Physician GroupComment on above:Performed By: #### ABG ####Point of Care testing,ABG TV500 mLNormalThe [facility] Physician [facility] Comment on above:Performed By: #### ABG ####Point of Care testing,CO2 [Moles/Vol]31.8 mmol/LHigh23.0-27.0The [facility] Physician GroupComment on above:Performed By: #### ABG ####Point of Care testing,HCO3 (Bld) [Moles/Vol] 30.0 mmol/LHigh23.0-29.0The [facility] Physician GroupComment on above:Performed By: #### ABG ####Point of Care testing,Respiratory CriticalNormHCA [facility] Hospital Physician GroupComment on above:Result Comment: Critical Value called on: 09/19/2025 at 06:06PERFORMED BY:[address] [address] [address] [place], [place] [phone] MEDICAL ELÍAS GERMAN M.D.Performed By: #### ABG ####Point of Care testing,Set Respiratory Rate18 NormalThe [facility] Physician GroupComment on above:Performed By: #### ABG ####Point of Care testing,VBG Draw SiteLeft BrachialNormHCA [facility] Physician GroupComment on above:Performed By: #### ABG ####Point of Care testing,Ventilator ModeACNormHCA [facility] Physician GroupComment on above: Performed By: #### ABG ####Point of Care testing,BioFire Not Detectedon 31-40-2642GnkJdjr Not DetectedNot detectedNormalNot DetecteThe [facility] Physician GroupComment on above:Result Comment: This is a duplicate RP2.1 COVID (PCR) result to be used for statistical tracking purpose only.PERFORMED BY:[address] [place], [place] [phone] 7PATHOLOGIST MEDICAL ELÍAS GERMAN M.D.Performed By: #### BIOFIRECOVNOTDE, RESP PANEL UPP. ####[address] [address] USAComplete Blood Count Auto Diffon [id number] (Bld) [#/Vol]0.0 10*3/uLNormal0.0-0.2The [facility] Physician GroupComment on above:Result Comment: PERFORMED BY:[address] [place], [place] [phone] MEDICAL ELÍAS GERMAN M.D.Performed By: #### HS TROP, CBC, CMP ####[address] [address] USABasophils/100 WBC (Bld)0.2 %Normal.The [facility] Physician GroupComment on above:Performed By: #### HS TROP, CBC, CMP ####[address] [address] [place] Eosinophils (Bld) [#/Vol]0.0 10*3/uLNormal0.0-0.45The [facility] Comment on above:Performed By: #### HS TROP, CBC, CMP ####[place] [address] USAEosinophils/100 WBC (Bld)0.1 % Normal.The [facility] Physician GroupComment on above:Performed By: #### HS TROP, CBC, CMP ####[place] [address] USAErythrocyte distribution width (RBC) [Ratio]16.0 %High12.0-14.8The [facility] Physician GroupComment on above:Performed By: #### HS TROP, CBC, CMP ####[place] [address] [place] Hematocrit (Bld) [Volume fraction]36.8 %Low38.8-50.0The [facility] Physician GroupComment on above:Performed By: #### HS TROP, CBC, CMP ####[place] [address] USAHemoglobin (Bld) [Mass/Vol]12.2 g/dLLow13.0-17.0The [facility] Physician GroupComment on above: Performed By: #### HS TROP, CBC, CMP ####[place] [address] USALymphocytes (Bld) [#/Vol]0.3 10*3/uLLow 1.00-4.8The [facility] Physician GroupComment on above:Performed By: #### HS TROP, CBC, CMP ####[place] [address] USALymphocytes/100 WBC (Bld)5.6 %Normal.The [facility] Comment on above:Performed By: #### HS TROP, CBC, CMP ####[place] [address] USAMCH (RBC) [Entitic mass]31.0 wfPtdlee00.5-35.2The [facility] Physician GroupComment on above:Performed By: #### HS TROP, CBC, CMP ####[address] [address] USAMCV (RBC) [Entitic vol]93.2 oOOwfkmm94.5-101The [facility] Physician GroupComment on above:Performed By: #### HS TROP, CBC, CMP ####[address] [address] USAMean Corpuscular HGB Conc33.2 g/kQXsbzhj51.5-35.6The [facility] Physician GroupComment on above:Performed By: #### HS TROP, CBC, CMP ####[place] [address] USAMonocytes (Bld) [#/Vol]0.3 10*3/uL Normal0.0-0.8The [facility] Physician GroupComment on above:Performed By: #### HS TROP, CBC, CMP ####[place] [address] USAMonocytes/100 WBC (Bld)4.9 %Normal.The [facility] Physician GroupComment on above:Performed By: #### HS TROP, CBC, CMP ####[place] [address] USANeutrophils (Bld) [#/Vol]5.5 10*3/uL Normal1.8-7.7The [facility] Physician GroupComment on above:Performed By: #### HS TROP, CBC, CMP ####[place] [address] USANeutrophils/100 WBC (Bld)89.2 %Normal.The [facility] Comment on above:Performed By: #### HS TROP, CBC, CMP ####[place] [address] USANRBC%0.1 /100{WBC}Normal0-0.5 The [facility] Physician GroupComment on above:Performed By: #### HS TROP, CBC, CMP ####[place] [address] [place] Platelet mean volume (Bld) [Entitic vol]7.3 fLNormal6.6-10.1The [facility] Physician GroupComment on above:Performed By: #### HS TROP, CBC, CMP ####[address] [address] [place] Platelets (Bld) [#/Vol]224 10*3/vLBmcguk105-607Mie [facility] Comment on above:Performed By: #### HS TROP, CBC, CMP ####[address] [address] USARBC (Bld) [#/Vol]3.95 10*6/uL Normal3.90-5.60The [facility] Physician GroupComment on above:Performed By: #### HS TROP, CBC, CMP ####[address] [address] USAWBC (Bld) [#/Vol]6.1 10*3/uLNormal4.1-10.5The [facility] Physician GroupComment on above:Performed By: #### HS TROP, CBC, CMP ####[address] [address] USAWhite Blood Count6.1 [CFU]/mLNormal4.1-10.5The [facility] Physician GroupComment on above:Performed By: #### HS TROP, CBC, CMP ####[place] [address] USAComprehensive Metabolic Panelon 90-75-8695Rivfeme [Mass/Vol]3.9 g/dLNormal3.5-5.7The [facility] Physician GroupComment on above: Performed By: #### HS TROP, CBC, CMP ####[place] [address] USAAlbumin/Globulin [Mass ratio]1.3 {ratio}Normal The [facility] Physician GroupComment on above:Performed By: #### HS TROP, CBC, CMP ####[place] [address] USAALP [Catalytic activity/Vol]122 U/TGtuu25-778Vld [facility] Physician GroupComment on above:Performed By: #### HS TROP, CBC, CMP ####[address] [address] USAALT [Catalytic activity/Vol]34 U/L Normal7-52The [facility] Physician GroupComment on above:Performed By: #### HS TROP, CBC, CMP ####[address] [address] USAAnion gap [Moles/Vol]12.8 mmol/LNormal6.0-15.0The [facility] Physician GroupComment on above:Performed By: #### HS TROP, CBC, CMP ####[address] [address] USAAST [Catalytic activity/Vol]37 U/ZMimnzw65-88Xud [facility] Physician GroupComment on above: Performed By: #### HS TROP, CBC, CMP ####[address] [address] USABilirubin [Mass/Vol]0.9 mg/dLNormal0.3-1.0The [facility] Physician GroupComment on above:Performed By: #### HS TROP, CBC, CMP ####[address] [address] USACalcium [Mass/Vol]9.1 mg/dLNormal8.6-10.3The [facility] Physician GroupComment on above: Performed By: #### HS TROP, CBC, CMP ####[address] [address] USAChloride [Moles/Vol]96 mmol/KElt19-596Azi [facility] Physician GroupComment on above:Performed By: #### HS TROP, CBC, CMP ####[address] [address] USACO2 [Moles/Vol]34.6 mmol/LHigh21.0-31.0The [facility] Physician GroupComment on above:Performed By: #### HS TROP, CBC, CMP ####[address] [address] USACreatinine [Mass/Vol]1.09 mg/dLNormal 0.70-1.30The [facility] Physician GroupComment on above:Performed By: #### HS TROP, CBC, CMP ####[place] [address] [place] [address] USACreatinine Clr Calc Znccyagj83.76NormHCA [facility]ician [facility] Comment on above:Result Comment: PERFORMED BY:[address] [place], [place] [phone] MEDICAL ELÍAS GERMAN M.D.Performed By: #### HS TROP, CBC, CMP ####[place] [address] [place] [address] USAGFR/1.73 sq M.predicted MDRD (S/P/Bld) [Vol rate/Area]mL/min/{1.73_m2}NormalThe [facility] Physician [facility]oxiComment on above:Performed By: #### HS TROP, CBC, CMP ####[address] [address] [place] Globulin (S) [Mass/Vol]3.0 g/dLNoTransylvania Regional Hospital Physician [facility] BiloxiComment on above:Performed By: #### HS TROP, CBC, CMP ####[address] [address] USAGlucose [Mass/Vol]90 mg/zBVjxcqf45-990 The [facility] Physician GroupComment on above:Result Comment: Random Glucose Reference Range is dependent on time and content of last meal. Glucose of more than 200 mg/dL in a nonstressed, ambulatory subject supports the diagnosis of Diabetes Mellitus. ADA recommended reference rangePerformed By: #### HS TROP, CBC, CMP ####[address] [address] USAPotassium [Moles/Vol]4.4 mmol/LNormal3.5-5.1The [facility] Physician [facility] Comment on above:Performed By: #### HS TROP, CBC, CMP ####[address] [address] USAProtein [Mass/Vol]6.9 g/dL Normal6.4-8.9The [facility] Physician GroupComment on above:Performed By: #### HS TROP, CBC, CMP ####[facility] [place] [address] USASodium [Moles/Vol]139 mmol/DJscgnf988-652Izd [facility] Comment on above:Performed By: #### HS TROP, CBC, CMP ####[facility] [place] [address] USAUrea nitrogen [Mass/Vol]18 mg/dLNormal7-e [facility] Physician GroupComment on above:Performed By: #### HS TROP, CBC, CMP ####[facility] [place] [address] USAGlucose Poct Glucometerson 13-51-1957Yfvbjrr [Mass/Vol]232 mg/dL NormalThe [facility] Physician GroupComment on above:Result Comment: Random Glucose Reference Range is dependent on time and content of last meal. Glucose of more than 200 mg/dL in a nonstressed, ambulatory subject supports the diagnosis of Diabetes Mellitus.PERFORMED BY:[place] [address] [address] [place], [place] [phone] MEDICAL DIRECTORCELESTE GERMAN M.D.Performed By: #### GLULS ####Point of Care testing, Oxqfenl7Qom5: Cleaned MeterAdventHealth Deltona ER Physician GroupComment on above: Result Comment: PERFORMED BY:[place] [address] [address] [place], [place] [phone] MEDICAL ELÍAS GERMAN M.D.Performed By: #### GLULS ####Point of Care testing,Glucose [Mass/Vol]138 mg/dLNoTransylvania Regional Hospital Physician GroupComment on above:Result Comment: Random Glucose Reference Range is dependent on time and content of last meal. Glucose of more than 200 mg/dL in a nonstressed, ambulatory subject supports the diagnosis of Diabetes Mellitus.Performed By: #### GLULS ####Point of Care testing,Wmniiov7Xhh2: Cleaned MeterNoTransylvania Regional Hospital Physician GroupComment on above:Result Comment: PERFORMED BY:[address] [place], [place] [phone] MEDICAL DIRECTORCELESTE GERMAN M.D.Performed By: #### GLULS ####Point of Care testing,Glucose [Mass/Vol]192 mg/dLAdventHealth Deltona ER Physician [facility] Health BiloxiComment on above:Result Comment: Random Glucose Reference Range is dependent on time and content of last meal. Glucose of more than 200 mg/dL in a nonstressed, ambulatory subject supports the diagnosis of Diabetes Mellitus.Performed By: #### GLULS ####Point of Care testing,Gram Stainon 36-85-2543Wumnwtfovqq observation Gram stain Nom (Unsp spec)Gram Stain Result 1+ Gram Negative Bacilli Rare White Blood Cells No Epithelial Cells Seen PERFORMED BY: [facility] [address] [place] [address] PATHOLOGIST SAP PORTAL CONSULTANT CELESTE GERMAN M.D.NormalThe [facility] Physician GroupComment on above: Performed By: #### AERC, GS ####[address] [address] USAMRSA - MSSA Nasal PCRon [id number] - MSSA Nasal PCRNoTransylvania Regional Hospital Physician [facility] BiloxiComment on above:Performed By: #### MRSA - MSSA PCR ####[address] [address] USARespiratory (Upper) Panel, PCRon [id number] (Upper) Panel, PCR NormalHca Florida [facility] Physician [facility] BiloxiComment on above:Performed By: #### BIOFIRECOVNOTDE, RESP PANEL UPP. ####[address] [address] USATroponin I High Sensitivityon 15-87-1406Dlmrbnzi I High Nsgrbivjwig15Sgjf8-50Din [facility] Physician GroupComment on above:Result Comment: The Troponin units of report have been changed to meet the Chest Pain Accreditationrequirement, element EC5.M1l2. Troponin units are changed from pg/ml to ng/L. Also, the decimal is removed and results are in whole numbers.PERFORMED BY:[address], [place] [phone] MEDICAL DIRECTORCELESTE GERMAN M.D.Performed By: #### HS TROP, CBC, CMP ####[place] [address] [place] [address] USAXR chest 1V portableon 37-93-7654NT chest 1V portableNormHCA [facility] Hospital Physician GroupECG 12 lead ECGon 74-47-7179IDI 12 lead ECGNoTransylvania Regional Hospital Physician [facility] BiloxiBasic Metabolic Panelon 08-17-2025 Anion gap [Moles/Vol]6.7 mmol/LNormal6.0-15.0The [facility] Comment on above:Performed By: #### TSH3, BMP, MG ####[place] [address] [place] [address] USACalcium [Mass/Vol]8.8 mg/dLNormal 8.6-10.3The [facility] Physician GroupComment on above:Performed By: #### TSH3, BMP, MG ####[address] [address] USAChloride [Moles/Vol]108 mmol/BSsjt87-890Vmu [facility] Physician GroupComment on above:Performed By: #### TSH3, BMP, MG ####[address] [address] USACO2 [Moles/Vol]26.9 mmol/EAxztlu38.0-31.0The [facility] Physician GroupComment on above:Performed By: #### TSH3, BMP, MG ####[address] [address] [place] Creatinine [Mass/Vol]0.93 mg/dLNormal0.70-1.30The [facility] Group Comment on above:Performed By: #### TSH3, BMP, MG ####[address] [address] USACreatinine Clr Calc Lijxpwem94.81 NormalThe [facility] Physician GroupComment on above:Performed By: #### TSH3, BMP, MG ####[place] [address] USAGFR/1.73 sq M.predicted MDRD (S/P/Bld) [Vol rate/Area]mL/min/{1.73_m2}Normal The [facility] Physician GroupComment on above:Performed By: #### TSH3 BMP, MG ####[address] [address] USAGlucose [Mass/Vol]80 mg/dGPoligv24-748Qap [facility] Physician GroupComment on above: Result Comment: Random Glucose Reference Range is dependent on time and content of last meal. Glucose of more than 200 mg/dL in a nonstressed, ambulatory subject supports the diagnosis of Diabetes Mellitus. ADA recommended reference rangePerformed By: #### TSH3 BMP, MG ####[address] [address] USAPotassium [Moles/Vol]3.6 mmol/LNormal3.5-5.1 The [facility] Physician GroupComment on above:Performed By: #### TSH3, BMP, MG ####[place] [address] USASodium [Moles/Vol]138 mmol/QWnyaec936-324Zep [facility] Physician GroupComment on above: Performed By: #### TSH3, BMP, MG ####[address] [address] USAUrea nitrogen [Mass/Vol]17 mg/dLNormal7-25The [facility] Physician GroupComment on above:Performed By: #### TSH3, BMP, MG ####[address] [address] USACT head/brain wo conon 33-47-4985HF head/brain wo conNormalThe Geisinger-Lewistown HospitalMagnesiumon 81-37-8583Wddalrkjl [Mass/Vol]2.0 mg/dLNormal1.9-2.7The [facility] Physician GroupComment on above:Performed By: #### TSH3, BMP, MG ####[place] [address] USAThyroid Stimulating Hormoneon 30-63-6716GDM Qn61.08 m[IU]/LHigh0.45-5.33The [facility] Physician GroupComment on above:Result Comment: PERFORMED BY:[place] [address] [address] [place], [place] [phone] MEDICAL ELÍAS GERMAN M.D.Performed By: #### TSH3, BMP, MG ####[address] [address] USABasic Metabolic Panel on 35-09-2255Weceg gap [Moles/Vol]7.8 mmol/LNormal6.0-15.0The [facility] Physician GroupComment on above:Performed By: #### BMP ####[address] [address] USACalcium [Mass/Vol]8.8 mg/dL Normal8.6-10.3The [facility] Physician GroupComment on above:Performed By: #### BMP ####[address] [address] [place] Chloride [Moles/Vol]105 mmol/HEnreso63-582Tia [facility] Physician GroupComment on above:Performed By: #### BMP ####[address] [address] USACO2 [Moles/Vol]27.5 mmol/REzfkor20.0-31.0The [facility] Physician GroupComment on above:Performed By: #### BMP ####[address] [address] USACreatinine [Mass/Vol] 1.06 mg/dLNormal0.70-1.30The [facility] Physician GroupComment on above:Performed By: #### BMP ####[address] [address] USACreatinine Clr Calc Hhilyxzm67.75NormalThMinidoka Memorial Hospital Physician Group Comment on above:Result Comment: PERFORMED BY:[place] [address] [address] [place], [place] [phone] MEDICAL ELÍAS GERMAN M.D.Performed By: #### BMP ####[address] [address] USAGFR/1.73 sq M.predicted MDRD (S/P/Bld) [Vol rate/Area]mL/min/{1.73_m2}NormalThe [facility] Comment on above:Performed By: #### BMP ####[address] [address] USAGlucose [Mass/Vol]84 mg/zVNygfxa26-154Edr [facility] Physician GroupComment on above:Result Comment: Random Glucose Reference Range is dependent on time and content of last meal. Glucose of more than 200 mg/dL in a nonstressed, ambulatory subject supports the diagnosis of Diabetes Mellitus. ADA recommended reference rangePerformed By: #### BMP ####[address] [address] [place] Potassium [Moles/Vol]3.3 mmol/LLow3.5-5.1The [facility] Physician GroupComment on above:Performed By: #### BMP ####[address] [address] USASodium [Moles/Vol]137 mmol/VVrhgdx819-798Isz [facility] Physician GroupComment on above:Performed By: #### BMP ####[address] [address] USAUrea nitrogen [Mass/Vol]17 mg/dLNormal7-25The [facility] Physician GroupComment on above: Performed By: #### BMP ####[address] [address] USABasic Metabolic Panelon 54-22-4280Apvxe gap [Moles/Vol]7.5 mmol/LNormal6.0-15.0The [facility] Physician GroupComment on above:Order Comment: per rn idania draw @ 0800. pt just went to sleep. arr 0350. per rn idania just come at 0800. pt fell back to sleep. arr 0724.Performed By: #### MG, BMP ####[address] [address] USACalcium [Mass/Vol]8.7 mg/dLNormal8.6-10.3The [facility] Physician GroupComment on above:Order Comment: per rn idania draw @ 0800. pt just went to sleep. arr 0350. per rn idania just come at 0800. pt fell back to sleep. arr 0724.Performed By: #### MG, BMP ####[place] [address] [place] [address] USAChloride [Moles/Vol]105 mmol/WGtifre44-306Izt [facility] Physician GroupComment on above:Order Comment: per rn idania draw @ 0800. pt just went to sleep. arr 0350. per rn idania just come at 0800. pt fell back to sleep. arr 0724. Performed By: #### MG, BMP ####[place] [address] USACO2 [Moles/Vol]28.5 mmol/VZrtaup84.0-31.0The [facility] Physician GroupComment on above:Order Comment: per rn idania draw @ 0800. pt just went to sleep. arr 0350. per rn idania just come at 0800. pt fell back to sleep. arr 0724.Performed By: #### MG, BMP ####[place] [address] USACreatinine [Mass/Vol]0.91 mg/dLNormal 0.70-1.30The [facility] Physician GroupComment on above:Order Comment: per rn idania draw @ 0800. pt just went to sleep. arr 0350. per rn idania just come at 0800. pt fell back to sleep. arr 0724.Performed By: #### MG, BMP ####[place] [address] [place] [address] USACreatinine Clr Calc Pharmacy 76.65NormalThMinidoka Memorial Hospital Physician GroupComment on above:Order Comment: per rn idania draw @ 0800. pt just went to sleep. arr 0350. per rn idania just come at 0800. pt fell back to sleep. arr 0724.Performed By: #### MG, BMP ####[address] [place] [place] [address] USAGFR/1.73 sq M.predicted MDRD (S/P/Bld) [Vol rate/Area]mL/min/{1.73_m2}NormalThe [facility] Physician GroupComment on above:Order Comment: per rn idania draw @ 0800. pt just went to sleep. arr 0350. per rn idania just come at 0800. pt fell back to sleep. arr 0724.Performed By: #### MG, BMP ####[place] [address] USAGlucose [Mass/Vol]83 mg/iKXpxuam76-946Btx [facility] Physician GroupComment on above:Order Comment: per [...] recommended reference rangePerformed By: #### MG, BMP ####[place] [address] USAPotassium [Moles/Vol]3.0 mmol/LLow3.5-5.1The [facility] Physician GroupComment on above:Order Comment: per rn idania draw @ 0800. pt just went to sleep. arr 0350. per rn idania just come at 0800. pt fell back to sleep. arr 0724.Performed By: #### MG, BMP ####[place] [address] USASodium [Moles/Vol]138 mmol/LNormal 136-145The [facility] Physician GroupComment on above:Order Comment: per rn idania draw @ 0800. pt just went to sleep. arr 0350. per rn idania just come at 0800. pt fell back to sleep. arr 0724.Performed By: #### MG, BMP ####[place] [address] USAUrea nitrogen [Mass/Vol]13 mg/dLNormal7-25The [facility] Physician GroupComment on above:Order Comment: per rn idania draw @ 0800. pt just went to sleep. arr 0350. per rn idania just come at 0800. pt fell back to sleep. arr 0724.Performed By: #### MG, BMP ####[address] [place] [address] USAECG 12 lead ECGon 50-62-8719MKT 12 lead ECGNormHCA Florida [facility] Hospital Physician GroupMagnesiumon 44-89-2602Fwybsodnl [Mass/Vol]2.1 mg/dLNormal1.9-2.7The [facility] Physician GroupComment on above:Order Comment: per rn idania draw @ 0800. pt just went to sleep. arr 0350. per rn idania just come at 0800. pt fell back to sleep. arr 0724. Result Comment: PERFORMED BY:[address] [place]LLYScarletteJremi[place], [place] [phone] MEDICAL ELÍAS GERMAN M.D.Performed By: #### MG, BMP ####[address] [address] USAThyroid Stimulating Hormoneon 37-86-0099KVL Qn59.87 m[IU]/LHigh0.45-5.33The [facility] Physician GroupComment on above:Order Comment: Comment addResult Comment: PERFORMED BY:[address] [place], [place] [phone] MEDICAL ELÍAS GERMAN M.D.Performed By: #### TSH3 ####[address] [address] USAECG 12 lead ECGon 80-68-2560CDW 12 lead ECG NormalThe [facility] Physician GroupECG 12 lead ECGNormHCA [facility] Physician GroupECG 12 lead ECGNormHCA [facility] Hospital Physician [facility] BiloxiBasic Metabolic Panelon 18-88-4190Wxiyu gap [Moles/Vol]6.6 mmol/LNormal6.0-15.0The [facility] Physician GroupComment on above:Performed By: #### BMP, CBC ####[address] [place] [address] USACalcium [Mass/Vol]8.4 mg/dLLow 8.6-10.3The [facility] Physician GroupComment on above:Performed By: #### BMP, CBC ####[place] [address] [place] Chloride [Moles/Vol]106 mmol/VCuxair43-213Bch [facility] Physician GroupComment on above:Performed By: #### BMP, CBC ####[place] [address] USACO2 [Moles/Vol]26.2 mmol/HTosqal50.0-31.0The [facility] Physician GroupComment on above:Performed By: #### BMP, CBC ####[place] [address] [place] Creatinine [Mass/Vol]1.09 mg/dLNormal0.70-1.30The [facility] Group Comment on above:Performed By: #### BMP, CBC ####[place] [address] USACreatinine Clr Calc Ahotzqrn25.76 NormalThe [facility] Physician GroupComment on above:Result Comment: PERFORMED BY:[address] [place], [place] [phone] MEDICAL ELÍAS GERMAN M.D.Performed By: #### BMP, CBC ####[place] [address] [place] GFR/1.73 sq M.predicted MDRD (S/P/Bld) [Vol rate/Area]mL/min/{1.73_m2}NormalThe [facility] Physician GroupComment on above:Performed By: #### BMP, CBC ####[place] [address] USAGlucose [Mass/Vol]101 mg/mUEagh36-187Kwb [facility] Physician GroupComment on above: Result Comment: Random Glucose Reference Range is dependent on time and content of last meal. Glucose of more than 200 mg/dL in a nonstressed, ambulatory subject supports the diagnosis of Diabetes Mellitus. ADA recommended reference rangePerformed By: #### BMP, CBC ####[address] [address] USAPotassium [Moles/Vol]3.8 mmol/LNormal3.5-5.1The [facility] Physician GroupComment on above:Performed By: #### BMP, CBC ####[address] [address] USASodium [Moles/Vol]135 mmol/DOew222-081Ovl [facility] Physician GroupComment on above: Performed By: #### BMP, CBC ####[address] [address] USAUrea nitrogen [Mass/Vol]20 mg/dLNormal7-25The [facility] Physician GroupComment on above:Performed By: #### BMP, CBC ####[place] [address] [facility] Complete Blood Count Auto Diffon 69-75-7684Zbevmmsrn (Bld) [#/Vol]0.0 10*3/uL Normal0.0-0.2The [facility] Physician GroupComment on above:Result Comment: PERFORMED BY:[address] [place], [place] [phone] MEDICAL DIRECTORCELESTE GERMAN M.D.Performed By: #### BMP, CBC ####[address] [address] USABasophils/100 WBC (Bld)0.8 %Normal.The [facility] Physician GroupComment on above:Performed By: #### BMP, CBC ####[address] [address] USAEosinophils (Bld) [#/Vol]0.1 10*3/uLNormal 0.0-0.45[facility] Physician GroupComment on above:Performed By: #### BMP, CBC ####[place] [address] [place] Eosinophils/100 WBC (Bld)1.0 %Normal.[facility] Physician GroupComment on above:Performed By: #### BMP, CBC ####[address] [address] USAErythrocyte distribution width (RBC) [Ratio]13.7 % Lzulkb70.0-14.8[facility] Physician GroupComment on above:Performed By: #### BMP, CBC ####[place] [address] USAHematocrit (Bld) [Volume fraction]34.1 %Low38.8-50.0[facility] Physician GroupComment on above:Performed By: #### BMP, CBC ####[place] [address] USAHemoglobin (Bld) [Mass/Vol]11.6 g/dL Low13.0-17.0[facility] Physician GroupComment on above:Performed By: #### BMP, CBC ####[place] [address] USALymphocytes (Bld) [#/Vol]1.1 10*3/uLNormal1.00-4.8[facility] Physician GroupComment on above:Performed By: #### BMP, CBC ####[place] [address] USALymphocytes/100 WBC (Bld)18.8 %Normal .[facility] Physician GroupComment on above:Performed By: #### BMP, CBC ####[place] [address] USAMCH (RBC) [Entitic mass]30.5 zlBhcazg64.5-35.2[facility] Physician GroupComment on above:Performed By: #### BMP, CBC ####[place] [address] USAMCV (RBC) [Entitic vol]89.4 xDBjriyb66.5-101 [facility] Physician GroupComment on above:Performed By: #### BMP, CBC ####[place] [address] USAMean Corpuscular HGB Conc34.2 g/aBEmifzc91.5-35.6[facility] Physician GroupComment on above:Performed By: #### BMP, CBC ####[place] [address] USAMonocytes (Bld) [#/Vol]0.4 10*3/uLNormal 0.0-0.8[facility] Physician GroupComment on above:Performed By: #### BMP, CBC ####[place] [address] [place] Monocytes/100 WBC (Bld)7.4 %Normal.[facility] Physician GroupComment on above:Performed By: #### BMP, CBC ####[place] [address] USANeutrophils (Bld) [#/Vol]4.3 10*3/uLNormal1.8-7.7[facility] Physician GroupComment on above:Performed By: #### BMP, CBC ####[place] [address] [place] Neutrophils/100 WBC (Bld)72.0 %Normal.[facility] Physician GroupComment on above:Performed By: #### BMP, CBC ####[place] [address] USANRBC%0.1 /100{WBC}Normal0-0.5[facility] Physician GroupComment on above:Performed By: #### BMP, CBC ####[place] [address] USAPlatelet mean volume (Bld) [Entitic vol]8.0 fLNormal6.6-10.1[facility] Physician GroupComment on above: Performed By: #### BMP, CBC ####[place] [address] USAPlatelets (Bld) [#/Vol]316 10*3/xQYtolop221-773Hsk [facility] Physician GroupComment on above:Performed By: #### BMP, CBC ####[place] [address] USARBC (Bld) [#/Vol]3.81 10*6/uLLow3.90-5.60[facility] Physician GroupComment on above:Performed By: #### BMP, CBC ####[place] [address] USAWBC (Bld) [#/Vol]5.9 10*3/uLNormal4.1-10.5[facility] Physician GroupComment on above:Performed By: #### BMP, CBC ####[place] [address] USAWhite Blood Count5.9 [CFU]/mLNormal4.1-10.5[facility] Physician GroupComment on above:Performed By: #### BMP, CBC ####[place] [address] USABasic Metabolic Panelon 11-50-5175Myqip gap [Moles/Vol]9.1 mmol/LNormal6.0-15.0[facility] Physician GroupComment on above:Performed By: #### CBC, BMP ####[place] [address] USACalcium [Mass/Vol]8.5 mg/dLLow8.6-10.3[facility] Physician GroupComment on above:Performed By: #### CBC, BMP ####[place] [address] USAChloride [Moles/Vol] 103 mmol/BJlxwpn83-664Qsi [facility] Physician GroupComment on above:Performed By: #### CBC, BMP ####[place] [address] USACO2 [Moles/Vol]27.2 mmol/PIshuyu11.0-31.0[facility] Physician GroupComment on above:Performed By: #### CBC, BMP ####[place] [address] USACreatinine [Mass/Vol]0.92 mg/dLNormal 0.70-1.30[facility] Physician GroupComment on above:Performed By: #### CBC, BMP ####[address] [address] [place] Creatinine Clr Calc Txkjnygy31.65NormalThe [facility] Physician GroupComment on above:Result Comment: PERFORMED BY:[place] [address] [address] [place] [place], [place] [phone] MEDICAL DIRECTORCELESTE GERMAN M.D.Performed By: #### CBC, BMP ####[address] [address] USAGFR/1.73 sq M.predicted MDRD (S/P/Bld) [Vol rate/Area]mL/min/{1.73_m2}NormalThe [facility] Physician GroupComment on above: Performed By: #### CBC, BMP ####[address] [address] USAGlucose [Mass/Vol]80 mg/eMRpwqou59-113Hdo [facility] Physician GroupComment on above:Result Comment: Random Glucose Reference Range is dependent on time and content of last meal. Glucose of more than 200 mg/dL in a nonstressed, ambulatory subject supports the diagnosis of Diabetes Mellitus. ADA recommended reference rangePerformed By: #### CBC, BMP ####[address] [address] USAPotassium [Moles/Vol] 3.3 mmol/LLow3.5-5.1[facility] Physician GroupComment on above:Performed By: #### CBC, BMP ####[address] [address] USASodium [Moles/Vol]136 mmol/IBynvgt580-540Yfp [facility] Physician Group Comment on above:Performed By: #### CBC, BMP ####[place] [address] USAUrea nitrogen [Mass/Vol]17 mg/dLNormal 7-25[facility] Physician GroupComment on above:Performed By: #### CBC, BMP ####[place] [address] [place] Complete Blood Count Auto Diffon 00-45-3044Afzkmpdwz (Bld) [#/Vol]0.1 10*3/uL Normal0.0-0.2[facility] Physician GroupComment on above:Result Comment: PERFORMED BY:[address] [place], [place] [phone] MEDICAL DIRECTORCELESTE GERMAN M.D.Performed By: #### CBC, BMP ####[address] [address] USABasophils/100 WBC (Bld)0.8 %Normal.[facility] Physician GroupComment on above:Performed By: #### CBC, BMP ####[address] [address] USAEosinophils (Bld) [#/Vol]0.0 10*3/uLNormal 0.0-0.45[facility] Physician GroupComment on above:Performed By: #### CBC, BMP ####[place] [address] [place] Eosinophils/100 WBC (Bld)0.4 %Normal.[facility] Physician GroupComment on above:Performed By: #### CBC, BMP ####[place] [address] USAErythrocyte distribution width (RBC) [Ratio]13.7 % Ejtxmj52.0-14.8[facility] Physician GroupComment on above:Performed By: #### CBC, BMP ####[place] [address] USAHematocrit (Bld) [Volume fraction]37.4 %Low38.8-50.0[facility] Physician GroupComment on above:Performed By: #### CBC, BMP ####[place] [address] USAHemoglobin (Bld) [Mass/Vol]12.6 g/dL Low13.0-17.0[facility] Physician GroupComment on above:Performed By: #### CBC, BMP ####[address] [place] [address] USALymphocytes (Bld) [#/Vol]1.0 10*3/uLNormal1.00-4.8[facility] Physician GroupComment on above:Performed By: #### CBC, BMP ####[place] [address] USALymphocytes/100 WBC (Bld)11.3 %Normal .[facility] Physician GroupComment on above:Performed By: #### CBC, BMP ####[address] (RBC) [Entitic mass]30.2 keFjgtez70.5-35.2[facility] Physician GroupComment on above:Performed By: #### CBC, BMP ####[address] (RBC) [Entitic vol]89.8 iHOxxjpp10.5-101 [facility] Physician GroupComment on above:Performed By: #### CBC, BMP ####[place] [address] USAMean Corpuscular HGB Conc33.6 g/uLBzzpqt56.5-35.6[facility] Physician GroupComment on above:Performed By: #### CBC, BMP ####[place] [address] USAMonocytes (Bld) [#/Vol]0.7 10*3/uLNormal 0.0-0.8[facility] Physician GroupComment on above:Performed By: #### CBC, BMP ####[place] [address] [place] Monocytes/100 WBC (Bld)7.8 %Normal.[facility] Physician GroupComment on above:Performed By: #### CBC, BMP ####[place] [address] USANeutrophils (Bld) [#/Vol]6.9 10*3/uLNormal1.8-7.7[facility] Physician GroupComment on above:Performed By: #### CBC, BMP ####[address] [address] [place] Neutrophils/100 WBC (Bld)79.7 %Normal.[facility] Physician GroupComment on above:Performed By: #### CBC, BMP ####[address] [address] USANRBC%0.0 /100{WBC}Normal0-0.5[facility] Physician GroupComment on above:Performed By: #### CBC, BMP ####[address] [address] USAPlatelet mean volume (Bld) [Entitic vol]8.1 fLNormal6.6-10.1[facility] Physician GroupComment on above: Performed By: #### CBC, BMP ####[place] [address] USAPlatelets (Bld) [#/Vol]340 10*3/rPQtrmeu421-353Wzz [facility] Physician GroupComment on above:Performed By: #### CBC, BMP ####[address] [address] USARBC (Bld) [#/Vol]4.16 10*6/uLNormal3.90-5.60[facility] Physician GroupComment on above:Performed By: #### CBC, BMP ####[address] [address] USAWBC (Bld) [#/Vol]8.7 10*3/uLNormal4.1-10.5[facility] Physician GroupComment on above:Performed By: #### CBC, BMP ####[address] [address] USAWhite Blood Count8.7 [CFU]/mLNormal4.1-10.5[facility] Physician GroupComment on above:Performed By: #### CBC, BMP ####[address] [address] USABasic Metabolic Panelon 30-98-4658Svdyu gap [Moles/Vol]9.5 mmol/LNormal6.0-15.0[facility] Physician GroupComment on above:Performed By: #### BMP ####[address] [address] USACalcium [Mass/Vol]8.1 mg/dLLow8.6-10.3[facility] Physician GroupComment on above:Performed By: #### BMP ####[address] [address] USAChloride [Moles/Vol]105 mmol/L Qxbxrq06-650Rnr [facility] Physician GroupComment on above:Performed By: #### BMP ####[address] [address] USACO2 [Moles/Vol]22.6 mmol/TEeibfb44.0-31.0[facility] Physician GroupComment on above:Performed By: #### BMP ####[address] [address] USACreatinine [Mass/Vol]0.88 mg/dLNormal0.70-1.30[facility] Physician GroupComment on above:Performed By: #### BMP ####[address] [address] USACreatinine Clr Calc Kumhugts15.41NormalThMinidoka Memorial Hospital Physician GroupComment on above:Result Comment: PERFORMED BY:[place] [address] [place], [place] [phone] MEDICAL ELÍAS GERMAN M.D.Performed By: #### BMP ####[address] [address] USAGFR/1.73 sq M.predicted MDRD (S/P/Bld) [Vol rate/Area]mL/min/{1.73_m2}Normal [facility] Physician GroupComment on above:Performed By: #### BMP ####[address] [address] USAGlucose [Mass/Vol]83 mg/lMWuhbhq34-724Jqt [facility] Physician GroupComment on above: Result Comment: Random Glucose Reference Range is dependent on time and content of last meal. Glucose of more than 200 mg/dL in a nonstressed, ambulatory subject supports the diagnosis of Diabetes Mellitus. ADA recommended reference rangePerformed By: #### BMP ####[place] [address] USAPotassium [Moles/Vol]4.1 mmol/LNormal3.5-5.1[facility] Physician GroupComment on above:Result Comment: Hemolysis is present at a level that could interfere with the result. Contact lab if redraw is requiredPerformed By: #### BMP ####[place] [address] USASodium [Moles/Vol]133 mmol/WWwa853-488Zjo [facility] Physician GroupComment on above:Performed By: #### BMP ####[place] [address] USAUrea nitrogen [Mass/Vol]25 mg/dLNormal7-25The [facility] Physician GroupComment on above:Performed By: #### BMP ####[place] [address] [facility] Complete Blood Count Auto Diffon 90-01-6113Qpgsjfhnn (Bld) [#/Vol]0.0 10*3/uL Normal0.0-0.2[facility] Physician GroupComment on above:Result Comment: PERFORMED BY:[place] [address] [place], [place] [phone] MEDICAL DIRECTORCELESTE GERMAN M.D.Performed By: #### CBC ####[place] [address] USABasophils/100 WBC (Bld)0.7 %Normal.[facility] Physician GroupComment on above:Performed By: #### CBC ####[place] [address] USAEosinophils (Bld) [#/Vol]0.0 10*3/uLNormal0.0-0.45 [facility] Physician GroupComment on above:Performed By: #### CBC ####[place] [address] [place] Eosinophils/100 WBC (Bld)0.6 %Normal.[facility] Physician GroupComment on above:Performed By: #### CBC ####[address] [address] [facility]ryth[facility] distribution width (RBC) [Ratio]14.2 % Wyomrm01.0-14.8[facility] Physician GroupComment on above:Performed By: #### CBC ####[place] [address] [facility] Hematocrit (Bld) [Volume fraction]36.4 %Low38.8-50.0[facility] Physician GroupComment on above:Performed By: #### CBC ####[place] [address] USAHemoglobin (Bld) [Mass/Vol]12.1 g/dL Low13.0-17.0[facility] Physician GroupComment on above:Performed By: #### CBC ####[place] [address] [place] Lymphocytes (Bld) [#/Vol]0.8 10*3/uLLow1.00-4.8[facility] Physician Group Comment on above:Performed By: #### CBC ####[place] [address] USALymphocytes/100 WBC (Bld)11.7 %Normal.[facility] Physician GroupComment on above:Performed By: #### CBC ####[address] [address] USAMCH (RBC) [Entitic mass]30.3 otNwydhl04.5-35.2[facility] Physician GroupComment on above: Performed By: #### CBC ####[address] [address] USAMCV (RBC) [Entitic vol]91.2 dXTifptq82.5-101The [facility] Physician GroupComment on above:Performed By: #### CBC ####[address] [address] USAMean Corpuscular HGB Conc33.2 g/sCDvfopc99.5-35.6The [facility] Physician GroupComment on above: Performed By: #### CBC ####[address] [address] USAMonocytes (Bld) [#/Vol]0.5 10*3/uLNormal0.0-0.8[facility] Physician GroupComment on above:Performed By: #### CBC ####[address] [address] USAMonocytes/100 WBC (Bld)7.0 %Normal.[facility] Physician GroupComment on above:Performed By: #### CBC ####[address] [address] USANeutrophils (Bld) [#/Vol]5.2 10*3/uLNormal1.8-7.7[facility] Physician GroupComment on above:Performed By: #### CBC ####[address] [address] USANeutrophils/100 WBC (Bld)80.0 %Normal. [facility] Physician GroupComment on above:Performed By: #### CBC ####[address] [address] USANRBC% 0.0 /100{WBC}Normal0-0.5The [facility] Physician GroupComment on above:Performed By: #### CBC ####[address] [address] USAPlatelet mean volume (Bld) [Entitic vol]8.0 fLNormal6.6-10.1[facility] Physician GroupComment on above:Performed By: #### CBC ####[address] [address] USAPlatelets (Bld) [#/Vol]257 10*3/fPQdqyiu076-227Xno [facility] Physician GroupComment on above: Performed By: #### CBC ####[address] [address] USARBC (Bld) [#/Vol]3.98 10*6/uLNormal3.90-5.60[facility] Physician GroupComment on above:Performed By: #### CBC ####[address] [address] USAWBC (Bld) [#/Vol]6.5 10*3/uLNormal4.1-10.5[facility] Physician GroupComment on above:Performed By: #### CBC ####[place] [address] USAWhite Blood Count6.5 [CFU]/mLNormal4.1-10.5The [facility] Physician Group Comment on above:Performed By: #### CBC ####[place] [address] USABasic Metabolic Panelon 09-96-9274Mplzh gap [Moles/Vol]8.3 mmol/LNormal6.0-15.0[facility] Physician GroupComment on above:Performed By: #### BMP, CBC ####[place] [address] USACalcium [Mass/Vol]8.5 mg/dLLow8.6-10.3[facility] Physician GroupComment on above:Performed By: #### BMP, CBC ####[place] [address] USAChloride [Moles/Vol] 101 mmol/VHbibwl86-728Atv [facility] Physician GroupComment on above:Performed By: #### BMP, CBC ####[place] [address] USACO2 [Moles/Vol]31.6 mmol/LHigh21.0-31.0[facility] Physician Group Comment on above:Performed By: #### BMP, CBC ####[place] [address] USACreatinine [Mass/Vol]1.10 mg/dLNormal 0.70-1.30[facility] Physician GroupComment on above:Performed By: #### BMP, CBC ####[address] [address] [place] Creatinine Clr Calc Irfqezxx11.53NormalThe [facility] Physician GroupComment on above:Result Comment: PERFORMED BY:[address] [place], [place] [phone] MEDICAL DIRECTORCELESTE GERMAN M.D.Performed By: #### BMP, CBC ####[address] [address] USAGFR/1.73 sq M.predicted MDRD (S/P/Bld) [Vol rate/Area]mL/min/{1.73_m2}NormalThe [facility] Physician GroupComment on above: Performed By: #### BMP, CBC ####[address] [address] USAGlucose [Mass/Vol]95 mg/fNWqlgtf08-536Kgy [facility] Physician GroupComment on above:Result Comment: Random Glucose Reference Range is dependent on time and content of last meal. Glucose of more than 200 mg/dL in a nonstressed, ambulatory subject supports the diagnosis of Diabetes Mellitus. ADA recommended reference rangePerformed By: #### BMP, CBC ####[address] [address] USAPotassium [Moles/Vol] 3.9 mmol/LNormal3.5-5.1[facility] Physician GroupComment on above:Performed By: #### BMP, CBC ####[address] [address] USASodium [Moles/Vol]137 mmol/HOzqbjh817-448Tzg [facility] Physician GroupComment on above:Performed By: #### BMP, CBC ####[address] [address] USAUrea nitrogen [Mass/Vol]33 mg/dLHigh 7-25The [facility] Physician GroupComment on above:Performed By: #### BMP, CBC ####[address] [address] [facility] Complete Blood Count Auto Diffon 10-39-5535Vcqvejonc (Bld) [#/Vol]0.0 10*3/uL Normal0.0-0.2The [facility] Physician GroupComment on above:Result Comment: PERFORMED BY:[address] [place], [place] [phone] MEDICAL DIRECTORCELESTE GERMAN M.D.Performed By: #### BMP, CBC ####[address] [address] USABasophils/100 WBC (Bld)0.8 %Normal.[facility] Physician GroupComment on above:Performed By: #### BMP, CBC ####[address] [address] USAEosinophils (Bld) [#/Vol]0.0 10*3/uLNormal 0.0-0.45The [facility] Physician GroupComment on above:Performed By: #### BMP, CBC ####[address] [address] [place] Eosinophils/100 WBC (Bld)0.9 %Normal.[facility] Physician GroupComment on above:Performed By: #### BMP, CBC ####[address] [address] USAErythrocyte distribution width (RBC) [Ratio]14.4 % Zlkemy00.0-14.8[facility] Physician GroupComment on above:Performed By: #### BMP, CBC ####[address] [address] USAHematocrit (Bld) [Volume fraction]33.5 %Low38.8-50.0[facility] Physician GroupComment on above:Performed By: #### BMP, CBC ####[address] [address] USAHemoglobin (Bld) [Mass/Vol]11.1 g/dL Low13.0-17.0[facility] Physician GroupComment on above:Performed By: #### BMP, CBC ####[place] [address] USALymphocytes (Bld) [#/Vol]1.0 10*3/uLNormal1.00-4.8[facility] Physician GroupComment on above:Performed By: #### BMP, CBC ####[place] [address] USALymphocytes/100 WBC (Bld)17.1 %Normal .[facility] Physician GroupComment on above:Performed By: #### BMP, CBC ####[address] StreetMCH (RBC) [Entitic mass]30.1 voUevwem30.5-35.2The [facility] Physician GroupComment on above:Performed By: #### BMP, CBC ####[address]MCV (RBC) [Entitic vol]90.5 jQTaumxl29.5-101 The [facility] Physician GroupComment on above:Performed By: #### BMP, CBC ####[place] [address] USAMean Corpuscular HGB Conc33.2 g/lXOplsnm01.5-35.6The [facility] Physician GroupComment on above:Performed By: #### BMP, CBC ####[place] [address] USAMonocytes (Bld) [#/Vol]0.4 10*3/uLNormal 0.0-0.8[facility] Physician GroupComment on above:Performed By: #### BMP, CBC ####[place] [address] [place] Monocytes/100 WBC (Bld)6.3 %Normal.[facility] Physician GroupComment on above:Performed By: #### BMP, CBC ####[place] [address] USANeutrophils (Bld) [#/Vol]4.3 10*3/uLNormal1.8-7.7The [facility] Physician GroupComment on above:Performed By: #### BMP, CBC ####[place] [address] [place] Neutrophils/100 WBC (Bld)74.9 %Normal.[facility] Physician GroupComment on above:Performed By: #### BMP, CBC ####[place] [address] USANRBC%0.2 /100{WBC}Normal0-0.5The [facility] Physician GroupComment on above:Performed By: #### BMP, CBC ####[place] [address] USAPlatelet mean volume (Bld) [Entitic vol]8.2 fLNormal6.6-10.1The [facility] Physician GroupComment on above: Performed By: #### BMP, CBC ####[place] [address] USAPlatelets (Bld) [#/Vol]200 10*3/gLXjoaoe224-354Qjh [facility] Physician GroupComment on above:Performed By: #### BMP, CBC ####[place] [address] USARBC (Bld) [#/Vol]3.70 10*6/uLLow3.90-5.60The [facility] Physician GroupComment on above:Performed By: #### BMP, CBC ####[place] [address] USAWBC (Bld) [#/Vol]5.7 10*3/uLNormal4.1-10.5The [facility] Physician GroupComment on above:Performed By: #### BMP, CBC ####[place] [address] USAWhite Blood Count5.7 [CFU]/mLNormal4.1-10.5The [facility] Physician GroupComment on above:Performed By: #### BMP, CBC ####[address] [place] [address] USABasic Metabolic Panelon 72-51-7512Fobkm gap [Moles/Vol]8.6 mmol/LNormal6.0-15.0The [facility] Physician GroupComment on above:Performed By: #### BMP, CBC ####[address] [address] USACalcium [Mass/Vol]8.3 mg/dLLow8.6-10.3The [facility] Physician GroupComment on above:Performed By: #### BMP, CBC ####[address] [address] USAChloride [Moles/Vol] 105 mmol/NBpxylz63-610Ukw [facility] Physician GroupComment on above:Performed By: #### BMP, CBC ####[address] [address] USACO2 [Moles/Vol]32.7 mmol/LHigh21.0-31.0The [facility]ician Group Comment on above:Performed By: #### BMP, CBC ####[address] [address] USACreatinine [Mass/Vol]1.05 mg/dLNormal 0.70-1.30The [facility] Physician GroupComment on above:Performed By: #### BMP, CBC ####[address] [address] [place] Creatinine Clr Calc Nrinvizl81.23NormalThe [facility] Physician GroupComment on above:Result Comment: PERFORMED BY:[place] [address] [place] [place], [place] [phone] MEDICAL ELÍAS GERMAN M.D.Performed By: #### BMP, CBC ####[address] [address] USAGFR/1.73 sq M.predicted MDRD (S/P/Bld) [Vol rate/Area]mL/min/{1.73_m2}NormalThe [facility] Physician [facility] BiloxiComment on above: Performed By: #### BMP, CBC ####[address] [place] [address] USAGlucose [Mass/Vol]87 mg/vUBvbvxz37-748Tzf [facility] Physician GroupComment on above:Result Comment: Random Glucose Reference Range is dependent on time and content of last meal. Glucose of more than 200 mg/dL in a nonstressed, ambulatory subject supports the diagnosis of Diabetes Mellitus. ADA recommended reference rangePerformed By: #### BMP, CBC ####[place] [address] USAPotassium [Moles/Vol] 4.3 mmol/LNormal3.5-5.1The [facility] Physician GroupComment on above:Performed By: #### BMP, CBC ####[place] [address] USASodium [Moles/Vol]142 mmol/IZxhgum126-290Vyh [facility] Physician GroupComment on above:Performed By: #### BMP, CBC ####[place] [id number] USAUrea nitrogen [Mass/Vol]30 mg/dLHigh 7-25The [facility] Physician GroupComment on above:Performed By: #### BMP, CBC ####[place] [id number] [facility] Complete Blood Count Auto Diffon 64-21-6974Cbzctenzi (Bld) [#/Vol]0.1 10*3/uL Normal0.0-0.2[facility] Physician [facility] BiloxiComment on above:Result Comment: PERFORMED BY:[address] [place], [place] [phone] MEDICAL ELÍAS GERMAN M.D.Performed By: #### BMP, CBC ####[place] [id number] USABasophils/100 WBC (Bld)0.8 %Normal.[facility] Physician GroupComment on above:Performed By: #### BMP, CBC ####[place] [address] USAEosinophils (Bld) [#/Vol]0.0 10*3/uLNormal 0.0-0.45[facility] Physician GroupComment on above:Performed By: #### BMP, CBC ####[place] [address] [place] Eosinophils/100 WBC (Bld)0.6 %Normal.[facility] Physician GroupComment on above:Performed By: #### BMP, CBC ####[place] [address] USAErythrocyte distribution width (RBC) [Ratio]15.0 % High12.0-14.8[facility] Physician GroupComment on above:Performed By: #### BMP, CBC ####[place] [address] USAHematocrit (Bld) [Volume fraction]35.8 %Low38.8-50.0[facility] Physician GroupComment on above:Performed By: #### BMP, CBC ####[place] [address] USAHemoglobin (Bld) [Mass/Vol]11.8 g/dL Low13.0-17.0[facility] Physician GroupComment on above:Performed By: #### BMP, CBC ####[place] [address] USALymphocytes (Bld) [#/Vol]0.8 10*3/uLLow1.00-4.8[facility] Physician Group Comment on above:Performed By: #### BMP, CBC ####[place] [address] USALymphocytes/100 WBC (Bld)13.2 %Normal. [facility] Physician GroupComment on above:Performed By: #### BMP, CBC ####[place] [address] USAMCH (RBC) [Entitic mass]30.2 knUwhopi47.5-35.2[facility] Physician GroupComment on above:Performed By: #### BMP, CBC ####[place] [address] USAMCV (RBC) [Entitic vol]92.0 oHRhiebo05.5-101 [facility] Physician GroupComment on above:Performed By: #### BMP, CBC ####[place] [address] USAMean Corpuscular HGB Conc32.8 g/aFNxpais72.5-35.6[facility] Physician GroupComment on above:Performed By: #### BMP, CBC ####[place] [address] USAMonocytes (Bld) [#/Vol]0.3 10*3/uLNormal 0.0-0.8[facility] Physician GroupComment on above:Performed By: #### BMP, CBC ####[place] [address] [place] Monocytes/100 WBC (Bld)4.9 %Normal.[facility] Physician GroupComment on above:Performed By: #### BMP, CBC ####[place] [address] USANeutrophils (Bld) [#/Vol]5.1 10*3/uLNormal1.8-7.7[facility] Physician GroupComment on above:Performed By: #### BMP, CBC ####[place] [address] [place] Neutrophils/100 WBC (Bld)80.5 %Normal.[facility] Physician GroupComment on above:Performed By: #### BMP, CBC ####[place] [address] USANRBC%0.2 /100{WBC}Normal0-0.5[facility] Physician GroupComment on above:Performed By: #### BMP, CBC ####[place] [address] USAPlatelet mean volume (Bld) [Entitic vol]8.0 fLNormal6.6-10.1[facility] Physician GroupComment on above: Performed By: #### BMP, CBC ####[place] [address] [place] [address] USAPlatelets (Bld) [#/Vol]213 10*3/pCEiwqft444-577Xqd [facility] Physician GroupComment on above:Performed By: #### BMP, CBC ####[address] [address] USARBC (Bld) [#/Vol]3.89 10*6/uLLow3.90-5.60[facility] Physician GroupComment on above:Performed By: #### BMP, CBC ####[address] [address] USAWBC (Bld) [#/Vol]6.4 10*3/uLNormal4.1-10.5[facility] Physician GroupComment on above:Performed By: #### BMP, CBC ####[address] [address] USAWhite Blood Count6.4 [CFU]/mLNormal4.1-10.5[facility] Physician GroupComment on above:Performed By: #### BMP, CBC ####[address] [address] USAGlucose Poct Glucometerson 83-90-9131Jlbwrsx8Nrf3: Cleaned MeterAdventHealth Deltona ER Physician [facility] Health BiloxiComment on above:Result Comment: PERFORMED BY:[address] [place], [place] [phone] MEDICAL ELÍAS GERMAN M.D.Performed By: #### GLULS ####Point of Care testing,Glucose [Mass/Vol]111 mg/dLNoTransylvania Regional Hospital Physician [facility] Health BiloxiComment on above:Result Comment: Random Glucose Reference Range is dependent on time and content of last meal. Glucose of more than 200 mg/dL in a nonstressed, ambulatory subject supports the diagnosis of Diabetes Mellitus.Performed By: #### GLULS ####Point of Care testing,Commemt1 Glu2: Cleaned MeterNoTransylvania Regional Hospital Physician GroupComment on above:Result Comment: PERFORMED BY:[address] [place], [place] [phone] MEDICAL DIRECTORCELESTE GERMAN M.D.Performed By: #### GLULS ####Point of Care testing,Glucose [Mass/Vol]97 mg/dLAdventHealth Deltona ER Physician GroupComment on above:Result Comment: Random Glucose Reference Range is dependent on time and content of last meal. Glucose of more than 200 mg/dL in a nonstressed, ambulatory subject supports the diagnosis of Diabetes Mellitus.Performed By: #### GLULS ####Point of Care testing,Glucose [Mass/Vol]101 mg/dLAdventHealth Deltona ER Physician GroupComment on above:Result Comment: Random Glucose Reference Range is dependent on time and content of last meal. Glucose of more than 200 mg/dL in a nonstressed, ambulatory subject supports the diagnosis of Diabetes Mellitus.PERFORMED BY:[place] [address] [place], [place] [phone] MEDICAL ELÍAS GERMAN M.D.Performed By: #### GLULS ####Point of Care testing, Exaavxi5Jse6: Cleaned MeterNoTransylvania Regional Hospital Physician GroupComment on above: Result Comment: PERFORMED BY:[place] [address] [place], [place] [phone] MEDICAL ELÍAS GERMAN M.D.Performed By: #### GLULS ####Point of Care testing,Glucose [Mass/Vol]110 mg/dLAdventHealth Deltona ER Physician GroupComment on above:Result Comment: Random Glucose Reference Range is dependent on time and content of last meal. Glucose of more than 200 mg/dL in a nonstressed, ambulatory subject supports the diagnosis of Diabetes Mellitus.Performed By: #### GLULS ####Point of Care testing,Arterial Blood Gason 94-87-9428ESJ Base Excess4.8 mmol/LHigh-3.0-3.0[facility] Physician GroupComment on above:Performed By: #### ABG ####Point of Care testing,ABG Frac Inspired O235 %NormalThe [facility] Physician GroupComment on above:Performed By: #### ABG ####Point of Care testing,ABG Oxygen Content7.6 mmol/LNormal6.6-9.7[facility] Physician GroupComment on above:Performed By: #### ABG ####Point of Care testing,ABG Oxygen Owsqtpjiqt57.4 %Low95.0-100.0[facility] Physician GroupComment on above:Performed By: #### ABG ####Point of Care testing,ABG QIY774.5 mm[Hg]High35.0-45.0[facility] Physician [facility] Comment on above:Performed By: #### ABG ####Point of Care testing,ABG PH7.41 Normal7.35-7.45[facility] Physician GroupComment on above:Performed By: #### ABG ####Point of Care testing,ABG PO260.5 mm[Hg]Low80.0-100.0[facility] Physician GroupComment on above:Performed By: #### ABG ####Point of Care testing,ABG Pressure Gqoxses53.0NoTransylvania Regional Hospital Physician GroupComment on above:Performed By: #### ABG ####Point of Care testing,CO2 [Moles/Vol]31.8 mmol/LHigh23.0-27.0[facility] Physician GroupComment on above:Performed By: #### ABG ####Point of Care testing,CPAP5.0[facility] Phys[facility] Comment on above:Performed By: #### ABG ####Point of Care testing,HCO3 (Bld) [Moles/Vol]30.3 mmol/LHigh23.0-29.0[facility] Physician GroupComment on above:Performed By: #### ABG ####Point of Care testing,Respiratory Critical NormalThe [facility] Physician GroupComment on above:Result Comment: Critical Value called on: 08/07/2025 at 14:47PERFORMED BY:[place] [address] [place], [place] [phone] MEDICAL DIRECTORCELESTE GERMAN M.D.Performed By: #### ABG ####Point of Care testing, VBG Draw SiteRight RadialAdventHealth Deltona ER Physician GroupComment on above: Performed By: #### ABG ####Point of Care testing,Ventilator ModeCPAPAdventHealth Deltona ER Physician GroupComment on above:Performed By: #### ABG ####Point of Care testing,ABG Base Excess6.2 mmol/LHigh-3.0-3.0[facility] Physician Group Comment on above:Performed By: #### ABG ####Point of Care testing,ABG Frac Inspired O230 %NormalThe [facility] Physician GroupComment on above:Performed By: #### ABG ####Point of Care testing,ABG Oxygen Content7.1 mmol/LNormal6.6-9.7[facility] Physician GroupComment on above:Performed By: #### ABG ####Point of Care testing,ABG Oxygen Wwgzpsgitc02.7 %Low95.0-100.0[facility] Physician GroupComment on above:Performed By: #### ABG ####Point of Care testing,ABG PCO2 42.6 mm[Hg]Xncjlh59.0-45.0[facility] Physician GroupComment on above: Performed By: #### ABG ####Point of Care testing,ABG CRNX7SgdrtpUvjAdventHealth Deltona ER Physician GroupComment on above:Performed By: #### ABG ####Point of Care testing,ABG PH7.97Cfoo4.35-7.45[facility] Physician GroupComment on above: Performed By: #### ABG ####Point of Care testing,ABG PO258.8 mm[Hg]Low80.0-100.0 [facility] Physician GroupComment on above:Performed By: #### ABG ####Point of Care testing,ABG TV450 mLNormalThe [facility] Physician GroupComment on above: Performed By: #### ABG ####Point of Care testing,CO2 [Moles/Vol]31.8 mmol/LHigh 23.0-27.0[facility] Physician GroupComment on above:Performed By: #### ABG ####Point of Care testing,HCO3 (Bld) [Moles/Vol]30.4 mmol/LHigh23.0-29.0[facility] Physician GroupComment on above:Performed By: #### ABG ####Point of Care testing,Respiratory CriticalAdventHealth Deltona ER Physician GroupComment on above:Result Comment: Critical Value called on: 08/07/2025 at 05:39PERFORMED BY:[address] [place], [place] [phone] MEDICAL DIRECTORCELESTE GERMAN M.D.Performed By: #### ABG ####Point of Care testing,Set Respiratory Tacw68PgeuzfPsoAdventHealth Deltona ER Physician GroupComment on above:Performed By: #### ABG ####Point of Care testing,VBG Draw SiteLeft BrachialAdventHealth Deltona ER Physician GroupComment on above:Performed By: #### ABG ####Point of Care testing,Ventilator ModeACNormal [facility] Physician GroupComment on above:Performed By: #### ABG ####Point of Care testing,Basic Metabolic Panelon 65-66-5480Mfgvf gap [Moles/Vol]9.4 mmol/LNormal6.0-15.0[facility] Physician GroupComment on above:Performed By: #### BMP, CBC ####[address] [address] USACalcium [Mass/Vol]8.3 mg/dLLow8.6-10.3[facility] Physician Group Comment on above:Performed By: #### BMP, CBC ####[address] [address] USAChloride [Moles/Vol]105 mmol/LNormal 98-107[facility] Physician GroupComment on above:Performed By: #### BMP, CBC ####[address] [address] USACO2 [Moles/Vol]33.9 mmol/LHigh21.0-31.0[facility] Physician GroupComment on above:Performed By: #### BMP, CBC ####[place] [address] [place] [address] USACreatinine [Mass/Vol]1.08 mg/dLNormal0.70-1.30[facility] Physician GroupComment on above:Performed By: #### BMP, CBC ####[address] [address] [place] Creatinine Clr Calc Peiabipe93.59NormalThe [facility] Physician GroupComment on above:Result Comment: PERFORMED BY:[address] [place], [place] [phone] MEDICAL ELÍAS GERMAN M.D.Performed By: #### BMP, CBC ####[address] [address] USAGFR/1.73 sq M.predicted MDRD (S/P/Bld) [Vol rate/Area]mL/min/{1.73_m2}NormalThe [facility] Physician GroupComment on above: Performed By: #### BMP, CBC ####[address] [address] USAGlucose [Mass/Vol]106 mg/mTTulh79-972Hne [facility] Physician GroupComment on above:Result Comment: Random Glucose Reference Range is dependent on time and content of last meal. Glucose of more than 200 mg/dL in a nonstressed, ambulatory subject supports the diagnosis of Diabetes Mellitus. ADA recommended reference rangePerformed By: #### BMP, CBC ####[address] [address] USAPotassium [Moles/Vol] 4.3 mmol/LNormal3.5-5.1[facility] Physician GroupComment on above:Performed By: #### BMP, CBC ####[address] [address] USASodium [Moles/Vol]144 mmol/ETlmqrw139-899Lez [facility] Physician GroupComment on above:Performed By: #### BMP, CBC ####[address] [address] USAUrea nitrogen [Mass/Vol]27 mg/dLHigh 7-25[facility] Physician GroupComment on above:Performed By: #### BMP, CBC ####[place] [id number] [facility] Complete Blood Count Auto Diffon 46-74-5353Pjffglcpe (Bld) [#/Vol]0.0 10*3/uL Normal0.0-0.2[facility] Physician GroupComment on above:Result Comment: PERFORMED BY:[address] [place]Sc[place]Jeremi[place], [place] [phone] MEDICAL DIRECTORCELESTE GERMAN M.D.Performed By: #### BMP, CBC ####[place] [address] USABasophils/100 WBC (Bld)0.7 %Normal.[facility] Physician GroupComment on above:Performed By: #### BMP, CBC ####[place] [address] USAEosinophils (Bld) [#/Vol]0.1 10*3/uLNormal 0.0-0.45[facility] Physician GroupComment on above:Performed By: #### BMP, CBC ####[place] [address] [place] Eosinophils/100 WBC (Bld)0.8 %Normal.[facility] Physician GroupComment on above:Performed By: #### BMP, CBC ####[place] [address] USAErythrocyte distribution width (RBC) [Ratio]15.4 % High12.0-14.8[facility] Physician GroupComment on above:Performed By: #### BMP, CBC ####[place] [address] USAHematocrit (Bld) [Volume fraction]38.0 %Low38.8-50.0[facility] Physician GroupComment on above:Performed By: #### BMP, CBC ####[place] [address] USAHemoglobin (Bld) [Mass/Vol]12.2 g/dL Low13.0-17.0[facility] Physician GroupComment on above:Performed By: #### BMP, CBC ####[place] [address] USALymphocytes (Bld) [#/Vol]0.9 10*3/uLLow1.00-4.8The [facility] Physician Group Comment on above:Performed By: #### BMP, CBC ####[place] [address] USALymphocytes/100 WBC (Bld)13.0 %Normal. [facility] Physician GroupComment on above:Performed By: #### BMP, CBC ####[address] (RBC) [Entitic mass]30.1 zcJdpbxo37.5-35.2[facility] Physician GroupComment on above:Performed By: #### BMP, CBC ####[address] (RBC) [Entitic vol]93.5 xLHgjjwk63.5-101 [facility] Physician GroupComment on above:Performed By: #### BMP, CBC ####[place] [address] USAMean Corpuscular HGB Conc32.2 g/dLLow32.5-35.6[facility] Physician GroupComment on above:Performed By: #### BMP, CBC ####[place] [address] USAMonocytes (Bld) [#/Vol]0.5 10*3/uLNormal0.0-0.8[facility] Physician GroupComment on above:Performed By: #### BMP, CBC ####[place] [address] [place] Monocytes/100 WBC (Bld)8.1 %Normal.[facility] Physician GroupComment on above:Performed By: #### BMP, CBC ####[place] [address] USANeutrophils (Bld) [#/Vol]5.2 10*3/uLNormal1.8-7.7[facility] Physician GroupComment on above:Performed By: #### BMP, CBC ####[place] [address] [place] Neutrophils/100 WBC (Bld)77.4 %Normal.[facility] Physician GroupComment on above:Performed By: #### BMP, CBC ####[place] [address] USANRBC%0.1 /100{WBC}Normal0-0.5[facility] Physician GroupComment on above:Performed By: #### BMP, CBC ####[place] [address] USAPlatelet mean volume (Bld) [Entitic vol]7.9 fLNormal6.6-10.1[facility] Physician GroupComment on above: Performed By: #### BMP, CBC ####[place] [address] USAPlatelets (Bld) [#/Vol]208 10*3/sTOrdeqd220-687Nkw [facility] Physician GroupComment on above:Performed By: #### BMP, CBC ####[place] [address] USARBC (Bld) [#/Vol]4.07 10*6/uLNormal3.90-5.60[facility] Physician GroupComment on above:Performed By: #### BMP, CBC ####[place] [address] USAWBC (Bld) [#/Vol]6.7 10*3/uLNormal4.1-10.5[facility] Physician GroupComment on above:Performed By: #### BMP, CBC ####[place] [address] USAWhite Blood Count6.7 [CFU]/mLNormal4.1-10.5[facility] Physician GroupComment on above:Performed By: #### BMP, CBC ####[address] [address] USAGlucose Poct Glucometerson 86-37-7418Voiabjk [Mass/Vol]104 mg/dLNoTransylvania Regional Hospital Physician GroupComment on above:Result Comment: Random Glucose Reference Range is dependent on time and content of last meal. Glucose of more than 200 mg/dL in a nonstressed, ambulatory subject supports the diagnosis of Diabetes Mellitus.PERFORMED BY:[address] [place], [place] [phone] MEDICAL ELÍAS GERMAN M.D.Performed By: #### GLULS ####Point of Care testing, Glucose [Mass/Vol]99 mg/dLAdventHealth Deltona ER Physician GroupComment on above: Result Comment: Random Glucose Reference Range is dependent on time and content of last meal. Glucose of more than 200 mg/dL in a nonstressed, ambulatory subject supports the diagnosis of Diabetes Mellitus.PERFORMED BY:[address] [place], [place] [phone] MEDICAL ELÍAS GERMAN M.D.Performed By: #### GLULS ####Point of Care testing,Glucose [Mass/Vol]105 mg/dLAdventHealth Deltona ER Physician GroupComment on above:Result Comment: Random Glucose Reference Range is dependent on time and content of last meal. Glucose of more than 200 mg/dL in a nonstressed, ambulatory subject supports the diagnosis of Diabetes Mellitus.PERFORMED BY:[address] [place], [place] [phone] MEDICAL ELÍAS GERMAN M.D.Performed By: #### GLULS ####Point of Care testing,XR chest 1V portableon [id number] chest 1V portableNoTransylvania Regional Hospital Physician GroupArterial Blood Gason 18-04-7805WLH Base Excess9.2 mmol/LHigh-3.0-3.0[facility] Physician GroupComment on above: Performed By: #### ABG ####Point of Care testing,ABG Frac Inspired O245 %Normal [facility] Physician GroupComment on above:Performed By: #### ABG ####Point of Care testing,ABG Oxygen Content7.2 mmol/LNormal6.6-9.7[facility] Physician GroupComment on above:Performed By: #### ABG ####Point of Care testing,ABG Oxygen Miojqctzas51.3 %Low95.0-100.0[facility] Physician GroupComment on above:Performed By: #### ABG ####Point of Care testing,ABG SII536.4 mm[Hg]High 35.0-45.0[facility] Physician GroupComment on above:Performed By: #### ABG ####Point of Care testing,ABG MBSQ2AqtrraJhm [facility] Physician GroupComment on above:Performed By: #### ABG ####Point of Care testing,ABG PH7.20Dkyl8.35-7.45 [facility] Physician GroupComment on above:Performed By: #### ABG ####Point of Care testing,ABG PO257.6 mm[Hg]Low80.0-100.0The [facility] Physician Group Comment on above:Performed By: #### ABG ####Point of Care testing,ABG TV400 mL NormalThe [facility] Physician GroupComment on above:Performed By: #### ABG ####Point of Care testing,CO2 [Moles/Vol]35.7 mmol/LHigh23.0-27.0[facility] Physician GroupComment on above:Performed By: #### ABG ####Point of Care testing,HCO3 (Bld) [Moles/Vol]34.2 mmol/LHigh23.0-29.0[facility] Physician GroupComment on above:Performed By: #### ABG ####Point of Care testing, Respiratory CriticalNormalThe [facility] Physician GroupComment on above:Result Comment: Critical Value called on: 08/06/2025 at 04:09PERFORMED BY:[place] [address] [place], [place] [phone] MEDICAL DIRECTORCELESTE GERMAN M.D.Performed By: #### ABG ####Point of Care testing,Set Respiratory Nnrv22TqnuwcSmhAdventHealth Deltona ER Physician GroupComment on above:Performed By: #### ABG ####Point of Care testing,VBG Draw SiteRight BrachialAdventHealth Deltona ER Physician GroupComment on above:Performed By: #### ABG ####Point of Care testing,Ventilator ModeACAdventHealth Deltona ER Physician GroupComment on above:Performed By: #### ABG ####Point of Care testing,Basic Metabolic Panelon 89-99-2618Kjmfy gap [Moles/Vol]8.9 mmol/LNormal6.0-15.0The [facility] Physician GroupComment on above:Performed By: #### BMP, TRIG, MG, CBC ####[address] [address] USACalcium [Mass/Vol]8.6 mg/dLNormal8.6-10.3The [facility] Physician GroupComment on above: Performed By: #### BMP, TRIG, MG, CBC ####[address] [address] USAChloride [Moles/Vol]109 mmol/PCyqt12-309Typ [facility] Physician [facility] BiloxiComment on above:Performed By: #### BMP, TRIG, MG, CBC ####[address] [address] USACO2 [Moles/Vol]33.1 mmol/LHigh21.0-31.0The [facility] Physician GroupComment on above:Performed By: #### BMP, TRIG, MG, CBC ####[address] [address] USACreatinine [Mass/Vol]1.07 mg/dLNormal 0.70-1.30The [facility] Physician GroupComment on above:Performed By: #### BMP, TRIG, MG, CBC ####[address] [address] USACreatinine Clr Calc Zerljtcr96.60NormHCA [facility] Comment on above:Performed By: #### BMP, TRIG, MG, CBC ####[place] [id number] USAGFR/1.73 sq M.predicted MDRD (S/P/Bld) [Vol rate/Area]mL/min/{1.73_m2}NormalThe [facility] Physician Group Comment on above:Performed By: #### BMP, TRIG, MG, CBC ####[place] [address] USAGlucose [Mass/Vol]101 mg/dL Tgnz30-574Hsl [facility] Physician GroupComment on above:Result Comment: Random Glucose Reference Range is dependent on time and content of last meal. Glucose of more than 200 mg/dL in a nonstressed, ambulatory subject supports the diagnosis of Diabetes Mellitus. ADA recommended reference rangePerformed By: #### BMP, TRIG, MG, CBC ####[place] [address] USAPotassium [Moles/Vol]4.0 mmol/LNormal3.5-5.1The [facility] Physician GroupComment on above:Performed By: #### BMP, TRIG, MG, CBC ####[place] [address] USASodium [Moles/Vol]147 mmol/WRmkf065-313Ggm [facility] Physician GroupComment on above: Performed By: #### BMP, TRIG, MG, CBC ####[place] [address] USAUrea nitrogen [Mass/Vol]23 mg/dLNormal7-25The [facility] Physician GroupComment on above:Performed By: #### BMP, TRIG, MG, CBC ####[place] [address] [facility] Complete Blood Count Auto Diffon 04-01-5774Urkmihvip (Bld) [#/Vol]0.0 10*3/uL Normal0.0-0.2The [facility] Physician [facility] BiloxiComment on above:Result Comment: PERFORMED BY:[address] [place], [place] [phone] MEDICAL DIRECTORCELESTE GERMAN M.D.Performed By: #### BMP, TRIG, MG, CBC ####[place] [address] USABasophils/100 WBC (Bld)0.2 %Normal.The [facility] Physician GroupComment on above:Performed By: #### BMP, TRIG, MG, CBC ####[place] [address] [place] Eosinophils (Bld) [#/Vol]0.1 10*3/uLNormal0.0-0.45The [facility] Physician Group Comment on above:Performed By: #### BMP, TRIG, MG, CBC ####[place] [address] USAEosinophils/100 WBC (Bld)1.2 % Normal.The [facility] Physician GroupComment on above:Performed By: #### BMP, TRIG, MG, CBC ####[place] [address] USAErythrocyte distribution width (RBC) [Ratio]15.8 %High12.0-14.8[facility] Physician GroupComment on above:Performed By: #### BMP, TRIG, MG, CBC ####[place] [address] [place] Hematocrit (Bld) [Volume fraction]36.4 %Low38.8-50.0[facility] Physician GroupComment on above:Performed By: #### BMP, TRIG, MG, CBC ####[place] [address] USAHemoglobin (Bld) [Mass/Vol]12.1 g/dLLow13.0-17.0[facility] Physician GroupComment on above: Performed By: #### BMP, TRIG, MG, CBC ####[place] [address] USALymphocytes (Bld) [#/Vol]0.6 10*3/uLLow 1.00-4.8[facility] Physician GroupComment on above:Performed By: #### BMP, TRIG, MG, CBC ####[place] [address] USALymphocytes/100 WBC (Bld)10.3 %Normal.[facility] Comment on above:Performed By: #### BMP, TRIG, MG, CBC ####[address] (RBC) [Entitic mass]30.5 dpMorwki35.5-35.2[facility] Physician GroupComment on above:Performed By: #### BMP, TRIG, MG, CBC ####[address] (RBC) [Entitic vol]92.1 lGDioqcf19.5-101The [facility] Physician GroupComment on above:Performed By: #### BMP, TRIG, MG, CBC ####[place] [address] USAMean Corpuscular HGB Conc33.1 g/oEZumtlq61.5-35.6[facility] Physician GroupComment on above:Performed By: #### BMP, TRIG, MG, CBC ####[place] [address] USAMonocytes (Bld) [#/Vol]0.4 10*3/uL Normal0.0-0.8[facility] Physician GroupComment on above:Performed By: #### BMP, TRIG, MG, CBC ####[place] [address] USAMonocytes/100 WBC (Bld)7.1 %Normal.[facility] Comment on above:Performed By: #### BMP, TRIG, MG, CBC ####[place] [address] USANeutrophils (Bld) [#/Vol]4.9 10*3/uLNormal1.8-7.7[facility] Physician GroupComment on above:Performed By: #### BMP, TRIG, MG, CBC ####[place] [address] USANeutrophils/100 WBC (Bld)81.2 %Normal.[facility] Physician GroupComment on above:Performed By: #### BMP, TRIG, MG, CBC ####[place] [address] USANRBC% 0.0 /100{WBC}Normal0-0.5[facility] Physician GroupComment on above:Performed By: #### BMP, TRIG, MG, CBC ####[place] [address] USAPlatelet mean volume (Bld) [Entitic vol]7.5 fLNormal 6.6-10.1[facility] Physician GroupComment on above:Performed By: #### BMP, TRIG, MG, CBC ####[place] [address] USAPlatelets (Bld) [#/Vol]208 10*3/uCBvtorf251-038Gsn [facility] Physician GroupComment on above:Performed By: #### BMP, TRIG, MG, CBC ####[place] [address] USARBC (Bld) [#/Vol]3.95 10*6/uLNormal3.90-5.60[facility] Physician GroupComment on above:Performed By: #### BMP, TRIG, MG, CBC ####[place] [address] USAWBC (Bld) [#/Vol]6.0 10*3/uLNormal4.1-10.5[facility] Physician GroupComment on above:Performed By: #### BMP, TRIG, MG, CBC ####[place] [address] USAWhite Blood Count6.0 [CFU]/mLNormal4.1-10.5[facility] Physician GroupComment on above:Performed By: #### BMP, TRIG, MG, CBC ####[place] [address] USAGlucose Poct Glucometerson 08-06-2025 Glucose [Mass/Vol]147 mg/dLNoTransylvania Regional Hospital Physician GroupComment on above: Result Comment: Random Glucose Reference Range is dependent on time and content of last meal. Glucose of more than 200 mg/dL in a nonstressed, ambulatory subject supports the diagnosis of Diabetes Mellitus.PERFORMED BY:[address] [place], [place] [phone] MEDICAL ELÍAS GERMAN M.D.Performed By: #### GLULS ####Point of Care testing,Glucose [Mass/Vol]120 mg/dLNoTransylvania Regional Hospital Physician GroupComment on above:Result Comment: Random Glucose Reference Range is dependent on time and content of last meal. Glucose of more than 200 mg/dL in a nonstressed, ambulatory subject supports the diagnosis of Diabetes Mellitus.PERFORMED BY:[address] [place], [place] [phone] MEDICAL ELÍAS GERMAN M.D.Performed By: #### GLULS ####Point of Care testing,Glucose [Mass/Vol]117 mg/dLNoTransylvania Regional Hospital Physician GroupComment on above:Result Comment: Random Glucose Reference Range is dependent on time and content of last meal. Glucose of more than 200 mg/dL in a nonstressed, ambulatory subject supports the diagnosis of Diabetes Mellitus.PERFORMED BY:[address] [place], [place] [phone] MEDICAL ELÍAS GERMAN M.D.Performed By: #### GLULS ####Point of Care testing,Magnesiumon 08-06-2025 Magnesium [Mass/Vol]1.9 mg/dLNormal1.9-2.7[facility] Physician GroupComment on above:Result Comment: PERFORMED BY:[address] [place], [place] [phone] MIC GERMAN M.D.Performed By: #### BMP, TRIG, MG, CBC ####[address] [address] USATriglycerideson 08-06-2025 Triglyceride [Mass/Vol]70 mg/oFYroeji22-516Hmy [facility] Physician [facility]iComment on above:Result Comment: TRIG ATP III CLASSIFICATION TRIG less than 150 mg/dL Normal TRIG 150-199 mg/dL Borderline high TRIG 200-500 mg/dL High TRIG greater than 500 mg/dL Very high Standard traceable to the Center for Disease Conrtrol and Prevention (CDC) test method.PERFORMED BY:[facility] [place], [place] [phone] MEDICAL DIRECTORCELESTE GERMAN M.D.Performed By: #### BMP, TRIG, MG, CBC ####[facility] [place] [address] USAXR chest 1V portable on 76-43-4331UQ chest 1V portableNormalThe [facility] Physician [facility] BiloxiArterial Blood Gason 79-47-2736QYA Base Excess8.4 mmol/LHigh-3.0-3.0[facility] Physician GroupComment on above:Performed By: #### ABG ####Point of Care testing,ABG Frac Inspired O255 %NormalThe [facility] Physician [facility] BiloxiComment on above:Performed By: #### ABG ####Point of Care testing,ABG Oxygen Content7.3 mmol/LNormal6.6-9.7[facility] Physician GroupComment on above:Performed By: #### ABG ####Point of Care testing,ABG Oxygen Tcuelgtxlr17.3 %Obyvkh54.0-100.0 [facility] Physician GroupComment on above:Performed By: #### ABG ####Point of Care testing,ABG HZN796.7 mm[Hg]High35.0-45.0[facility] Physician [facility] Comment on above:Performed By: #### ABG ####Point of Care testing,ABG PEEP5 NormalThe [facility] Physician GroupComment on above:Performed By: #### ABG ####Point of Care testing,ABG PH7.13Drge8.35-7.45[facility] Physician [facility] Comment on above:Performed By: #### ABG ####Point of Care testing,ABG PO274.4 mm[Hg]Low80.0-100.0[facility] Physician GroupComment on above:Performed By: #### ABG ####Point of Care testing,ABG TV500 mLNormalThe [facility] Physician GroupComment on above:Performed By: #### ABG ####Point of Care testing,CO2 [Moles/Vol]34.4 mmol/LHigh23.0-27.0[facility] Physician GroupComment on above:Performed By: #### ABG ####Point of Care testing,HCO3 (Bld) [Moles/Vol] 33.0 mmol/LHigh23.0-29.0[facility] Physician GroupComment on above:Performed By: #### ABG ####Point of Care testing,Respiratory CriticalAdventHealth Deltona ER Physician GroupComment on above:Result Comment: Critical Value called on: 08/05/2025 at 04:04PERFORMED BY:[address] [place], [place] [phone] MEDICAL DIRECTORCELESTE GERMAN M.D.Performed By: #### ABG ####Point of Care testing,Set Respiratory Rate12 NormalThe [facility] Physician GroupComment on above:Performed By: #### ABG ####Point of Care testing,VBG Draw SiteRight BrachialAdventHealth Deltona ER Physician GroupComment on above:Performed By: #### ABG ####Point of Care testing,Ventilator ModeACNoTransylvania Regional Hospital Physician GroupComment on above: Performed By: #### ABG ####Point of Care testing,Basic Metabolic Panelon 38-39-6484Stjwh gap [Moles/Vol]8.6 mmol/LNormal6.0-15.0[facility] Physician GroupComment on above:Performed By: #### BMP, CBC ####[facility] [place] [address] [place] [address] USACalcium [Mass/Vol]8.4 mg/dLLow 8.6-10.3[facility] Physician GroupComment on above:Performed By: #### BMP, CBC ####[address] [address] [place] Chloride [Moles/Vol]107 mmol/RNvgryl46-849Rxx [facility] Physician GroupComment on above:Performed By: #### BMP, CBC ####[address] [address] USACO2 [Moles/Vol]31.8 mmol/LHigh21.0-31.0[facility] Physician GroupComment on above:Performed By: #### BMP, CBC ####[address] [address] [place] Creatinine [Mass/Vol]1.06 mg/dLNormal0.70-1.30[facility] Group Comment on above:Performed By: #### BMP, CBC ####[place] [address] USACreatinine Clr Calc Lnvnnduy05.06 NormalThe [facility] Physician GroupComment on above:Result Comment: PERFORMED BY:[address] [place], [place] [phone] MEDICAL ELÍAS GERMAN M.D.Performed By: #### BMP, CBC ####[place] [address] [place] GFR/1.73 sq M.predicted MDRD (S/P/Bld) [Vol rate/Area]mL/min/{1.73_m2}NormalThe [facility] Physician GroupComment on above:Performed By: #### BMP, CBC ####[place] [address] USAGlucose [Mass/Vol]131 mg/gJZikl19-188Jkz [facility] Physician GroupComment on above: Result Comment: Random Glucose Reference Range is dependent on time and content of last meal. Glucose of more than 200 mg/dL in a nonstressed, ambulatory subject supports the diagnosis of Diabetes Mellitus. ADA recommended reference rangePerformed By: #### BMP, CBC ####[address] [address] USAPotassium [Moles/Vol]3.4 mmol/LLow3.5-5.1The [facility] Physician GroupComment on above:Performed By: #### BMP, CBC ####[place] [address] USASodium [Moles/Vol]144 mmol/DIvdldu534-337Ted [facility] Physician GroupComment on above: Performed By: #### BMP, CBC ####[place] [address] USAUrea nitrogen [Mass/Vol]27 mg/dLHigh7-25The [facility] Physician GroupComment on above:Performed By: #### BMP, CBC ####[place] [address] [facility] Complete Blood Count Auto Diffon 76-47-7559Cvgkacrkb (Bld) [#/Vol]0.0 10*3/uL Normal0.0-0.2The [facility] Physician GroupComment on above:Result Comment: PERFORMED BY:[address] [place], [place] [phone] MEDICAL DIRECTORCELESTE GERMAN M.D.Performed By: #### BMP, CBC ####[place] [address] USABasophils/100 WBC (Bld)0.5 %Normal.[facility] Physician GroupComment on above:Performed By: #### BMP, CBC ####[place] [address] USAEosinophils (Bld) [#/Vol]0.1 10*3/uLNormal 0.0-0.45The [facility] Physician GroupComment on above:Performed By: #### BMP, CBC ####[place] [address] [place] Eosinophils/100 WBC (Bld)1.8 %Normal.[facility] Physician GroupComment on above:Performed By: #### BMP, CBC ####[place] [address] USAErythrocyte distribution width (RBC) [Ratio]15.4 % High12.0-14.8[facility] Physician GroupComment on above:Performed By: #### BMP, CBC ####[place] [address] USAHematocrit (Bld) [Volume fraction]34.2 %Low38.8-50.0[facility] Physician GroupComment on above:Performed By: #### BMP, CBC ####[place] [address] USAHemoglobin (Bld) [Mass/Vol]11.3 g/dL Low13.0-17.0[facility] Physician GroupComment on above:Performed By: #### BMP, CBC ####[place] [address] USALymphocytes (Bld) [#/Vol]0.5 10*3/uLLow1.00-4.8[facility] Comment on above:Performed By: #### BMP, CBC ####[place] [address] USALymphocytes/100 WBC (Bld)11.2 %Normal. [facility] Physician GroupComment on above:Performed By: #### BMP, CBC ####[place] [address] USAMCH (RBC) [Entitic mass]30.5 vbRtdnzx95.5-35.2[facility] Physician GroupComment on above:Performed By: #### BMP, CBC ####[place] [address] USAMCV (RBC) [Entitic vol]92.6 cOXennsa93.5-101 [facility] Physician GroupComment on above:Performed By: #### BMP, CBC ####[place] [address] USAMean Corpuscular HGB Conc32.9 g/fKKpuegc38.5-35.6The [facility] Physician GroupComment on above:Performed By: #### BMP, CBC ####[place] [address] USAMonocytes (Bld) [#/Vol]0.5 10*3/uLNormal 0.0-0.8[facility] Physician GroupComment on above:Performed By: #### BMP, CBC ####[place] [address] [place] Monocytes/100 WBC (Bld)9.7 %Normal.[facility] Physician GroupComment on above:Performed By: #### BMP, CBC ####[place] [address] USANeutrophils (Bld) [#/Vol]3.6 10*3/uLNormal1.8-7.7[facility] Physician GroupComment on above:Performed By: #### BMP, CBC ####[place] [address] [place] Neutrophils/100 WBC (Bld)76.8 %Normal.[facility] Physician GroupComment on above:Performed By: #### BMP, CBC ####[place] [address] USANRBC%0.2 /100{WBC}Normal0-0.5The [facility] Physician GroupComment on above:Performed By: #### BMP, CBC ####[place] [address] USAPlatelet mean volume (Bld) [Entitic vol]7.3 fLNormal6.6-10.1The [facility] Physician GroupComment on above: Performed By: #### BMP, CBC ####[place] [address] USAPlatelets (Bld) [#/Vol]191 10*3/gWVjpidq188-162Aio [facility] Physician GroupComment on above:Performed By: #### BMP, CBC ####[place] [address] USARBC (Bld) [#/Vol]3.69 10*6/uLLow3.90-5.60The [facility] Physician GroupComment on above:Performed By: #### BMP, CBC ####[facility] [place] [address] USAWBC (Bld) [#/Vol]4.7 10*3/uLNormal4.1-10.5The [facility] Physician GroupComment on above:Performed By: #### BMP, CBC ####[place] [address] [place] [address] USAWhite Blood Count4.7 [CFU]/mLNormal4.1-10.5The [facility] Physician GroupComment on above:Performed By: #### BMP, CBC ####[address] [address] USAGlucose Poct Glucometerson 32-21-0935Zemfnwg [Mass/Vol]139 mg/dLNoTransylvania [facility] Hospital Physician GroupComment on above:Result Comment: Random Glucose Reference Range is dependent on time and content of last meal. Glucose of more than 200 mg/dL in a nonstressed, ambulatory subject supports the diagnosis of Diabetes Mellitus.PERFORMED BY:[address] [place], [place] [phone] MEDICAL ELÍAS GERMAN M.D.Performed By: #### GLULS ####Point of Care testing, Glucose [Mass/Vol]85 mg/dLNoTransylvania Regional Hospital Physician GroupComment on above: Result Comment: Random Glucose Reference Range is dependent on time and content of last meal. Glucose of more than 200 mg/dL in a nonstressed, ambulatory subject supports the diagnosis of Diabetes Mellitus.PERFORMED BY:[address] [place], [place] [phone] MEDICAL ELÍAS GERMAN M.D.Performed By: #### GLULS ####Point of Care testing,Glucose [Mass/Vol]127 mg/dLNoTransylvania Regional Hospital Physician GroupComment on above:Result Comment: Random Glucose Reference Range is dependent on time and content of last meal. Glucose of more than 200 mg/dL in a nonstressed, ambulatory subject supports the diagnosis of Diabetes Mellitus.PERFORMED BY:[address] [place], [place] [phone] MEDICAL ELÍAS GERMAN M.D.Performed By: #### GLULS ####Point of Care testing,Glucose [Mass/Vol]168 mg/dLAdventHealth Deltona ER Physician [facility] BiloxiComment on above:Result Comment: Random Glucose Reference Range is dependent on time and content of last meal. Glucose of more than 200 mg/dL in a nonstressed, ambulatory subject supports the diagnosis of Diabetes Mellitus.PERFORMED BY:[address] [place], [place] [phone] MEDICAL DIRECTORCELESTE GERMAN M.D.Performed By: #### GLULS ####Point of Care testing,XR chest 1V portableon 50-59-4451DA chest 1V portableNoOur Lady of Mercy HospitalAerobic Culture on 46-50-6918Inofqkz CultureNoOur Lady of Mercy HospitalComment on above: Performed By: #### AERC, GS ####[address] [address] USAAnti-Xa UF Heparinon 42-52-5430Ouia-Xa UF Heparin 0.42Vzibio0.30-0.70The [facility] Physician [facility] BiloxiComment on above:Result Comment: Use the aPTT protocol when triglycerides are > 800 mg/dL, total bilirubin is > 20 mg/dL and/or patient has received a DOAC, Fondaparinux or LMWH within 72 hours AND baseline anti-Xa level is > 0.7 units/mLPERFORMED BY:[address] [place], [place] [phone] MEDICAL ELÍAS GERMAN M.D.Performed By: #### UFHEP ####[place] [address] [place] [address] USAArterial Blood Gason 70-34-6037AHW Base Excess3.2 mmol/LHigh-3.0-3.0The [facility] Physician Group Comment on above:Performed By: #### ABG ####Point of Care testing,ABG Frac Inspired O265 %NormalThe [facility] Physician [facility] BiloxiComment on above:Performed By: #### ABG ####Point of Care testing,ABG Oxygen Content6.9 mmol/LNormal6.6-9.7The [facility] Physician GroupComment on above:Performed By: #### ABG ####Point of Care testing,ABG Oxygen Effiaxymxd64.4 %Low95.0-100.0The [facility] Physician GroupComment on above:Performed By: #### ABG ####Point of Care testing,ABG PCO2 45.5 mm[Hg]High35.0-45.0The [facility] Physician GroupComment on above:Performed By: #### ABG ####Point of Care testing,ABG RSKA8WezaxvNmc [facility] Physician GroupComment on above:Performed By: #### ABG ####Point of Care testing,ABG PH 7.09Oszskn5.35-7.45The [facility] Physician GroupComment on above:Performed By: #### ABG ####Point of Care testing,ABG PO270.1 mm[Hg]Low80.0-100.0[facility] Physician GroupComment on above:Performed By: #### ABG ####Point of Care testing,ABG TV500 mLNormalThe [facility] Physician GroupComment on above: Performed By: #### ABG ####Point of Care testing,CO2 [Moles/Vol]29.7 mmol/LHigh 23.0-27.0[facility] Physician GroupComment on above:Performed By: #### ABG ####Point of Care testing,HCO3 (Bld) [Moles/Vol]28.3 mmol/NJsujib93.0-29.0The [facility] Physician GroupComment on above:Performed By: #### ABG ####Point of Care testing,Respiratory CriticalNormHCA Florida [facility] Hospital Physician GroupComment on above:Result Comment: Critical Value called on: 2025 at 06:09PERFORMED BY:[place] [address] [place], [place] [phone] MEDICAL DIRECTORCELESTE GERMAN M.D.Performed By: #### ABG ####Point of Care testing,Set Respiratory Kxge13YrmxhnMdqAdventHealth Deltona ER Physician GroupComment on above:Performed By: #### ABG ####Point of Care testing,VBG Draw SiteRight RadialAdventHealth Deltona ER Physician GroupComment on above:Performed By: #### ABG ####Point of Care testing,Ventilator ModeACNormal [facility] Physician GroupComment on above:Performed By: #### ABG ####Point of Care testing,Basic Metabolic Panelon 35-97-5404Ddvus gap [Moles/Vol]10.5 mmol/LNormal6.0-15.0The [facility] Physician GroupComment on above:Performed By: #### BMP, CBC ####[address] [address] USACalcium [Mass/Vol]8.5 mg/dLLow8.6-10.3The [facility]ician Group Comment on above:Performed By: #### BMP, CBC ####[address] [address] USAChloride [Moles/Vol]107 mmol/LNormal 98-107[facility] Physician [facility] BiloxiComment on above:Performed By: #### BMP, CBC ####[address] [address] USACO2 [Moles/Vol]27.9 mmol/OGzoubf16.0-31.0[facility] Physician [facility] BiloxiComment on above:Performed By: #### BMP, CBC ####[address] [address] USACreatinine [Mass/Vol]1.11 mg/dLNormal0.70-1.30The [facility] Physician GroupComment on above:Performed By: #### BMP, CBC ####[address] [address] [place] Creatinine Clr Calc Bydfrxma63.60NoTransylvania Regional Hospital Physician [facility] BiloxiComment on above:Result Comment: PERFORMED BY:[address] [place], [place] [phone] MEDICAL DIRECTORCELESTE GERMAN M.D.Performed By: #### BMP, CBC ####[address] [address] USAGFR/1.73 sq M.predicted MDRD (S/P/Bld) [Vol rate/Area]mL/min/{1.73_m2}NormalThe [facility] Physician GroupComment on above: Performed By: #### BMP, CBC ####[address] [address] USAGlucose [Mass/Vol]88 mg/bUJoqwts46-575Cru [facility] Physician GroupComment on above:Result Comment: Random Glucose Reference Range is dependent on time and content of last meal. Glucose of more than 200 mg/dL in a nonstressed, ambulatory subject supports the diagnosis of Diabetes Mellitus. ADA recommended reference rangePerformed By: #### BMP, CBC ####[address] [address] USAPotassium [Moles/Vol] 3.4 mmol/LLow3.5-5.1The [facility] Physician GroupComment on above:Performed By: #### BMP, CBC ####[address] [address] USASodium [Moles/Vol]142 mmol/ODasaac677-468Mpp [facility] Physician Group Comment on above:Performed By: #### BMP, CBC ####[address] [address] USAUrea nitrogen [Mass/Vol]34 mg/dLHigh 7-25The [facility] Physician GroupComment on above:Performed By: #### BMP, CBC ####[place] [address] [facility] Complete Blood Count Auto Diffon 27-85-8437Xftwnwbwk (Bld) [#/Vol]0.0 10*3/uL Normal0.0-0.2The [facility] Physician GroupComment on above:Result Comment: PERFORMED BY:[address] [place], [place] [phone] MEDICAL ELÍAS GERMAN M.D.Performed By: #### BMP, CBC ####[address] [address] USABasophils/100 WBC (Bld)0.3 %Normal.The [facility] Physician GroupComment on above:Performed By: #### BMP, CBC ####[place] [address] USAEosinophils (Bld) [#/Vol]0.0 10*3/uLNormal 0.0-0.45The [facility] Physician GroupComment on above:Performed By: #### BMP, CBC ####[place] [address] [place] Eosinophils/100 WBC (Bld)0.6 %Normal.The [facility] Physician GroupComment on above:Performed By: #### BMP, CBC ####[place] [address] USAErythrocyte distribution width (RBC) [Ratio]15.8 % High12.0-14.8The [facility] Physician GroupComment on above:Performed By: #### BMP, CBC ####[place] [address] USAHematocrit (Bld) [Volume fraction]35.2 %Low38.8-50.0The [facility] Physician GroupComment on above:Performed By: #### BMP, CBC ####[place] [address] USAHemoglobin (Bld) [Mass/Vol]11.6 g/dL Low13.0-17.0The [facility] Physician GroupComment on above:Performed By: #### BMP, CBC ####[place] [address] USALymphocytes (Bld) [#/Vol]0.4 10*3/uLLow1.00-4.8The [facility]ician Group Comment on above:Performed By: #### BMP, CBC ####[place] [address] USALymphocytes/100 WBC (Bld)9.6 %Normal. The [facility] Physician GroupComment on above:Performed By: #### BMP, CBC ####[address] (RBC) [Entitic mass]30.5 tmYghfqx67.5-35.2The [facility] Physician GroupComment on above:Performed By: #### BMP, CBC ####[address] (RBC) [Entitic vol]92.2 zSMqlkxv25.5-101 The [facility] Physician GroupComment on above:Performed By: #### BMP, CBC ####[place] [address] USAMean Corpuscular HGB Conc33.0 g/hZDsgais48.5-35.6The [facility] Physician GroupComment on above:Performed By: #### BMP, CBC ####[place] [address] USAMonocytes (Bld) [#/Vol]0.5 10*3/uLNormal 0.0-0.8The [facility] Physician GroupComment on above:Performed By: #### BMP, CBC ####[place] [address] [place] Monocytes/100 WBC (Bld)11.2 %Normal.The [facility] Physician GroupComment on above:Performed By: #### BMP, CBC ####[place] [address] USANeutrophils (Bld) [#/Vol]3.4 10*3/uLNormal1.8-7.7[facility] Physician GroupComment on above:Performed By: #### BMP, CBC ####[place] [address] [place] Neutrophils/100 WBC (Bld)78.3 %Normal.[facility] Physician GroupComment on above:Performed By: #### BMP, CBC ####[place] [address] USANRBC%0.1 /100{WBC}Normal0-0.5The [facility] Physician GroupComment on above:Performed By: #### BMP, CBC ####[address] [address] USAPlatelet mean volume (Bld) [Entitic vol]7.2 fLNormal6.6-10.1The [facility] Physician GroupComment on above: Performed By: #### BMP, CBC ####[address] [address] USAPlatelets (Bld) [#/Vol]181 10*3/eHAmuwzh481-954Gkd [facility] Physician GroupComment on above:Performed By: #### BMP, CBC ####[address] [address] USARBC (Bld) [#/Vol]3.82 10*6/uLLow3.90-5.60The [facility] Physician GroupComment on above:Performed By: #### BMP, CBC ####[address] [address] USAWBC (Bld) [#/Vol]4.3 10*3/uLNormal4.1-10.5The [facility] Physician GroupComment on above:Performed By: #### BMP, CBC ####[address] [address] USAWhite Blood Count4.3 [CFU]/mLNormal4.1-10.5The [facility] Physician GroupComment on above:Performed By: #### BMP, CBC ####[place] [id number] USAECG 12 lead ECGon 36-58-5870WGL 12 lead ECGNoTransylvania Regional Hospital Physician [facility] BiloxiGlucose Poct Glucometerson 67-40-5901Naiaamb0Tvn1: Cleaned MeterNoTransylvania Regional Hospital Physician [facility] BiloxiComment on above:Result Comment: PERFORMED BY:[address] [place]rem[place], [place] [phone] MEDICAL DIRECTORCELESTE GERMAN M.D.Performed By: #### GLULS ####Point of Care testing,Glucose [Mass/Vol]126 mg/dLAdventHealth Deltona ER Physician GroupComment on above:Result Comment: Random Glucose Reference Range is dependent on time and content of last meal. Glucose of more than 200 mg/dL in a nonstressed, ambulatory subject supports the diagnosis of Diabetes Mellitus.Performed By: #### GLULS ####Point of Care testing,Commemt1 Glu2: Cleaned MeterNoTransylvania Regional Hospital Physician GroupComment on above:Result Comment: PERFORMED BY:[address]ScarlettHERMITAGE, [place] [phone] MEDICAL DIRECTORCELESTE GERMAN M.D.Performed By: #### GLULS ####Point of Care testing,Glucose [Mass/Vol]111 mg/dLAdventHealth Deltona ER Physician GroupComment on above:Result Comment: Random Glucose Reference Range is dependent on time and content of last meal. Glucose of more than 200 mg/dL in a nonstressed, ambulatory subject supports the diagnosis of Diabetes Mellitus.Performed By: #### GLULS ####Point of Care testing,Gram Stain on 57-22-2834Cufpjnxylvb observation Gram stain Nom (Unsp spec)Gram Stain Result 3+ White Blood Cells 1+ Epithelial Cells 1+ Gram Positive Cocci PERFORMED BY: [facility] [address] [place] [address] PATHOLOGIST SAP PORTAL CONSULTANT CELESTE GERMAN M.D.NormalThe [facility] Physician GroupComment on above: Performed By: #### AERC, GS ####[address] [address] USATriglycerideson 92-69-8421Kkqmfeuxsapd [Mass/Vol]109 mg/vLCoosxs38-322Olk [facility] Physician [facility] BiloxiComment on above:Result Comment: TRIG ATP III CLASSIFICATION TRIG less than 150 mg/dL Normal TRIG 150-199 mg/dL Borderline high TRIG 200-500 mg/dL High TRIG greater than 500 mg/dL Very high Standard traceable to the Center for Disease Conrtrol and Prevention (CDC) test method.PERFORMED BY:[facility]ER[address] [place], [place] [address]lett[place], [place] [phone] MEDICAL ELÍAS GERMAN M.D.Performed By: #### TRIG ####[address] [address] USAXR chest 1V portableon 88-48-6951MN chest 1V portableAdventHealth Deltona ER Physician [facility] BiloxiAnti-Xa UF Heparinon 61-77-9770Oukk-Xa UF Heparin0.35Normal 0.30-0.70The [facility] Physician [facility] BiloxiComment on above:Result Comment: Use the aPTT protocol when triglycerides are > 800 mg/dL, total bilirubin is > 20 mg/dL and/or patient has received a DOAC, Fondaparinux or LMWH within 72 hours AND baseline anti-Xa level is > 0.7 units/mLPERFORMED BY:[place] [address] [address] NELLYScarlettJeremi[place], [place] [phone] MEDICAL ELÍAS GERMAN M.D.Performed By: #### UFHEP ####[address] [address] USAArterial Blood Gason 64-83-9359BKK Base Excess-0.6 mmol/LNormal-3.0-3.0The [facility] Physician [facility] Comment on above:Performed By: #### ABG ####Point of Care testing,ABG Frac Inspired O260 %NormalThe [facility] Physician [facility] BiloxiComment on above:Performed By: #### ABG ####Point of Care testing,ABG Oxygen Content6.7 mmol/LNormal6.6-9.7The [facility] Physician [facility] BiloxiComment on above:Performed By: #### ABG ####Point of Care testing,ABG Oxygen Pwiifycnqj67.9 %Low95.0-100.0The [facility] Physician GroupComment on above:Performed By: #### ABG ####Point of Care testing,ABG PCO2 47.1 mm[Hg]High35.0-45.0The [facility] Physician GroupComment on above:Performed By: #### ABG ####Point of Care testing,ABG NBWN0SthvlnBvt [facility] Physician GroupComment on above:Performed By: #### ABG ####Point of Care testing,ABG PH 7.68Jpaqna7.35-7.45The [facility] Physician GroupComment on above:Performed By: #### ABG ####Point of Care testing,ABG PO275.5 mm[Hg]Low80.0-100.0The [facility] Physician GroupComment on above:Performed By: #### ABG ####Point of Care testing,ABG TV500 mLNormalThe [facility] Physician GroupComment on above: Performed By: #### ABG ####Point of Care testing,CO2 [Moles/Vol]26.7 mmol/L Byrtuw76.0-27.0The [facility] Physician GroupComment on above:Performed By: #### ABG ####Point of Care testing,HCO3 (Bld) [Moles/Vol]25.3 mmol/QLidarj93.0-29.0 The [facility] Physician GroupComment on above:Performed By: #### ABG ####Point of Care testing,Respiratory CriticalAdventHealth Deltona ER Physician GroupComment on above:Result Comment: Critical Value called on: 08/03/2025 at 04:44PERFORMED BY:[place] [address] [address] [place] [place], [place] [phone] MEDICAL DIRECTORCELESTE GERMAN M.D.Performed By: #### ABG ####Point of Care testing,Set Respiratory Dgqm71DvmaldOcdAdventHealth Deltona ER Physician GroupComment on above:Performed By: #### ABG ####Point of Care testing,VBG Draw SiteRight RadialAdventHealth Deltona ER Physician GroupComment on above:Performed By: #### ABG ####Point of Care testing,Ventilator ModeACNormal [facility] Physician GroupComment on above:Performed By: #### ABG ####Point of Care testing,Basic Metabolic Panelon 18-00-6634Zkorq gap [Moles/Vol]7.9 mmol/LNormal6.0-15.0The [facility] Physician GroupComment on above:Performed By: #### CBC, BMP ####[place] [address] [place] [address] USACalcium [Mass/Vol]8.1 mg/dLLow8.6-10.3The [facility] Physician Group Comment on above:Performed By: #### CBC, BMP ####[place] [address] [place] [address] USAChloride [Moles/Vol]106 mmol/LNormal 98-107The [facility] Physician GroupComment on above:Performed By: #### CBC, BMP ####[address] [address] USACO2 [Moles/Vol]28.9 mmol/FQkpyzh58.0-31.0The [facility] Physician GroupComment on above:Performed By: #### CBC, BMP ####[address] [address] USACreatinine [Mass/Vol]1.49 mg/dLHigh0.70-1.30The [facility] Physician GroupComment on above:Performed By: #### CBC, BMP ####[address] [address] [place] Creatinine Clr Calc Fgteockj89.84NormalThe [facility] Physician GroupComment on above:Result Comment: PERFORMED BY:[address] [place], [place] [phone] MEDICAL ELÍAS GERMAN M.D.Performed By: #### CBC, BMP ####[address] [address] USAGFR/1.73 sq M.predicted MDRD (S/P/Bld) [Vol rate/Area]51.439 mL/min/{1.73_m2}NormalThe [facility] Physician GroupComment on above:Performed By: #### CBC, BMP ####[address] [address] USAGlucose [Mass/Vol]87 mg/dPLpqmkh82-487Qae [facility] Physician GroupComment on above:Result Comment: Random Glucose Reference Range is dependent on time and content of last meal. Glucose of more than 200 mg/dL in a nonstressed, ambulatory subject supports the diagnosis of Diabetes Mellitus. ADA recommended reference rangePerformed By: #### CBC, BMP ####[place] [address] USAPotassium [Moles/Vol] 3.8 mmol/LNormal3.5-5.1The [facility] Physician GroupComment on above:Performed By: #### CBC, BMP ####[place] [address] USASodium [Moles/Vol]139 mmol/UYntmua191-191Gus [facility] Physician GroupComment on above:Performed By: #### CBC, BMP ####[place] [address] USAUrea nitrogen [Mass/Vol]50 mg/dLHigh 7-e [facility] Physician GroupComment on above:Performed By: #### CBC, BMP ####[place] [address] [facility] Complete Blood Count Auto Diffon 81-33-0973Vfugullvo (Bld) [#/Vol]0.0 10*3/uL Normal0.0-0.2The [facility] Physician [facility] BiloxiComment on above:Result Comment: PERFORMED BY:[address] [place], [place] [phone] MEDICAL ELÍAS GERMAN M.D.Performed By: #### CBC, BMP ####[place] [address] USABasophils/100 WBC (Bld)0.2 %Normal.The [facility] Physician GroupComment on above:Performed By: #### CBC, BMP ####[place] [address] USAEosinophils (Bld) [#/Vol]0.0 10*3/uLNormal 0.0-0.45The [facility] Physician [facility] BiloxiComment on above:Performed By: #### CBC, BMP ####[place] [address] [place] Eosinophils/100 WBC (Bld)0.4 %Normal.The [facility] Physician GroupComment on above:Performed By: #### CBC, BMP ####[place] [address] USAErythrocyte distribution width (RBC) [Ratio]15.4 % High12.0-14.8The [facility] Physician GroupComment on above:Performed By: #### CBC, BMP ####[place] [address] USAHematocrit (Bld) [Volume fraction]31.4 %Low38.8-50.0The [facility] Physician GroupComment on above:Performed By: #### CBC, BMP ####[place] [address] USAHemoglobin (Bld) [Mass/Vol]10.4 g/dL Low13.0-17.0The [facility] Physician GroupComment on above:Performed By: #### CBC, BMP ####[place] [address] USALymphocytes (Bld) [#/Vol]0.4 10*3/uLLow1.00-4.8The [facility] Physician Group Comment on above:Performed By: #### CBC, BMP ####[place] [address] USALymphocytes/100 WBC (Bld)7.5 %Normal. The [facility] Physician GroupComment on above:Performed By: #### CBC, BMP ####[place] [address] [facility]ENTERMCH (RBC) [Entitic mass]31.1 vhHqqxsg47.5-35.2The [facility] Physician GroupComment on above:Performed By: #### CBC, BMP ####[place] [address] USAMCV (RBC) [Entitic vol]93.6 xDWrmzrl36.5-101 The [facility] Physician GroupComment on above:Performed By: #### CBC, BMP ####[place] [address] USAMean Corpuscular HGB Conc33.2 g/kNVhejaw48.5-35.6The [facility] Physician GroupComment on above:Performed By: #### CBC, BMP ####[place] [address] USAMonocytes (Bld) [#/Vol]0.6 10*3/uLNormal 0.0-0.8The [facility] Physician GroupComment on above:Performed By: #### CBC, BMP ####[place] [address] [place] Monocytes/100 WBC (Bld)12.5 %Normal.The [facility] Physician GroupComment on above:Performed By: #### CBC, BMP ####[place] [address] USANeutrophils (Bld) [#/Vol]4.0 10*3/uLNormal1.8-7.7The [facility] Physician GroupComment on above:Performed By: #### CBC, BMP ####[place] [address] [place] Neutrophils/100 WBC (Bld)79.4 %Normal.The [facility] Physician GroupComment on above:Performed By: #### CBC, BMP ####[place] [address] USANRBC%0.2 /100{WBC}Normal0-0.5The [facility] Physician GroupComment on above:Performed By: #### CBC, BMP ####[place] [address] USAPlatelet mean volume (Bld) [Entitic vol]7.7 fLNormal6.6-10.1The [facility] Physician GroupComment on above: Performed By: #### CBC, BMP ####[place] [address] USAPlatelets (Bld) [#/Vol]180 10*3/dXRtyelw376-180Nea [facility] Physician GroupComment on above:Performed By: #### CBC, BMP ####[facility] [place] [address] USARBC (Bld) [#/Vol]3.36 10*6/uLLow3.90-5.60The [facility] Physician GroupComment on above:Performed By: #### CBC, BMP ####[address] [address] USAWBC (Bld) [#/Vol]5.1 10*3/uLNormal4.1-10.5The [facility] Physician GroupComment on above:Performed By: #### CBC, BMP ####[address] [address] USAWhite Blood Count5.1 [CFU]/mLNormal4.1-10.5The [facility] Physician GroupComment on above:Performed By: #### CBC, BMP ####[address] [address] USAXR chest 1V portableon 72-44-8837QG chest 1V portableNormalThe [facility] Physician GroupAnti-Xa UF Heparinon 10-39-1562Balw- Xa UF Heparin0.57Tlarli9.30-0.70The [facility] Physician GroupComment on above: Result Comment: Use the aPTT protocol when triglycerides are > 800 mg/dL, total bilirubin is > 20 mg/dL and/or patient has received a DOAC, Fondaparinux or LMWH within 72 hours AND baseline anti-Xa level is > 0.7 units/mLPERFORMED BY:[address] [place], [place] [phone] MEDICAL ELÍAS GERMAN M.D.Performed By: #### UFHEP ####[address] [address] USAAnti-Xa UF Heparin0.73Mshqpy5.30-0.70The [facility] Physician [facility] BiloxiComment on above:Result Comment: Use the aPTT protocol when triglycerides are > 800 mg/dL, total bilirubin is > 20 mg/dL and/or patient has received a DOAC, Fondaparinux or LMWH within 72 hours AND baseline anti-Xa level is > 0.7 units/mLPERFORMED BY:[facility] [place], [place] [phone] MEDICAL DIRECTORCELESTE GERMAN M.D.Performed By: #### UFHEP ####[facility] Campbellatrium [place] [address] USAArterial Blood Gason 74-87-5020HYR Base Excess-5.8 mmol/LLow-3.0-3.0The [facility] Physician GroupComment on above:Performed By: #### ABG ####Point of Care testing,ABG Frac Inspired O265 %NormalThe [facility] Physician GroupComment on above:Performed By: #### ABG ####Point of Care testing,ABG Oxygen Content7.0 mmol/LNormal6.6-9.7The [facility] Physician GroupComment on above:Performed By: #### ABG ####Point of Care testing,ABG Oxygen Browfypkpw34.5 %Qfjhbd12.0-100.0 The [facility] Physician GroupComment on above:Performed By: #### ABG ####Point of Care testing,ABG JME027.8 mm[Hg]Koadxc98.0-45.0The [facility] Physician [facility] Comment on above:Performed By: #### ABG ####Point of Care testing,ABG PEEP5 NormalThe [facility] Physician GroupComment on above:Performed By: #### ABG ####Point of Care testing,ABG PH7.34Low7.35-7.45The [facility] Physician [facility] Comment on above:Performed By: #### ABG ####Point of Care testing,ABG PO287.9 mm[Hg]Ubgpkp49.0-100.0The [facility] Physician GroupComment on above:Performed By: #### ABG ####Point of Care testing,ABG TV500 mLNormalThe [facility] Physician GroupComment on above:Performed By: #### ABG ####Point of Care testing,CO2 [Moles/Vol]20.5 mmol/LLow23.0-27.0The [facility] Physician GroupComment on above: Performed By: #### ABG ####Point of Care testing,HCO3 (Bld) [Moles/Vol]19.4 mmol/LLow23.0-29.0The [facility] Physician GroupComment on above:Performed By: #### ABG ####Point of Care testing,Respiratory CriticalAdventHealth Deltona ER Physician GroupComment on above:Result Comment: Critical Value called on: 08/02/2025 at 04:17PERFORMED BY:[address] [place], [place] [phone] MEDICAL DIRECTORCELESTE GERMAN M.D.Performed By: #### ABG ####Point of Care testing,Set Respiratory Rate16 NormalThe [facility] Physician GroupComment on above:Performed By: #### ABG ####Point of Care testing,VBG Draw SiteLeft BrachialAdventHealth Deltona ER Physician GroupComment on above:Performed By: #### ABG ####Point of Care testing,Ventilator ModeACNoTransylvania Regional Hospital Physician GroupComment on above: Performed By: #### ABG ####Point of Care testing,Basic Metabolic Panelon 71-00-7574Rimai gap [Moles/Vol]12.0 mmol/LNormal6.0-15.0The [facility] Physician GroupComment on above:Performed By: #### BMP, CBC ####[address] [address] USACalcium [Mass/Vol]8.6 mg/dLNormal 8.6-10.3The [facility] Physician GroupComment on above:Performed By: #### BMP, CBC ####[address] [address] [place] Chloride [Moles/Vol]100 mmol/UPkecvr08-382Blt [facility] Physician GroupComment on above:Performed By: #### BMP, CBC ####[address] [address] USACO2 [Moles/Vol]28.3 mmol/JNvfbzu61.0-31.0The [facility] Physician GroupComment on above:Performed By: #### BMP, CBC ####[address] [address] [place] Creatinine [Mass/Vol]2.27 mg/dLHigh0.70-1.30The [facility] Physician GroupComment on above:Performed By: #### BMP, CBC ####[address] [address] USACreatinine Clr Calc Aqokgceg17.41NormalThe [facility] Physician GroupComment on above:Result Comment: PERFORMED BY:[address] [place], [place] [phone] MEDICAL ELÍAS GERMAN M.D.Performed By: #### BMP, CBC ####[place] [address] USAGFR/1.73 sq M.predicted MDRD (S/P/Bld) [Vol rate/Area]31.037 mL/min/{1.73_m2}NormalThe [facility] Physician GroupComment on above:Performed By: #### BMP, CBC ####[address] [address] USAGlucose [Mass/Vol]96 mg/oJPnwkub31-534Ciu [facility] Physician [facility] BiloxiComment on above: Result Comment: Random Glucose Reference Range is dependent on time and content of last meal. Glucose of more than 200 mg/dL in a nonstressed, ambulatory subject supports the diagnosis of Diabetes Mellitus. ADA recommended reference rangePerformed By: #### BMP, CBC ####[address] [address] USAPotassium [Moles/Vol]4.3 mmol/LNormal3.5-5.1The [facility] Physician GroupComment on above:Performed By: #### BMP, CBC ####[address] [address] USASodium [Moles/Vol]136 mmol/XIvpybq821-700Vbq [facility] Physician GroupComment on above: Performed By: #### BMP, CBC ####[place] [address] USAUrea nitrogen [Mass/Vol]70 mg/dLHigh7-25The [facility] Physician GroupComment on above:Performed By: #### BMP, CBC ####[address] Complete Blood Count Auto Diffon 82-18-7264Gbfeeurrn (Bld) [#/Vol]0.0 10*3/uL Normal0.0-0.2The [facility] Physician GroupComment on above:Result Comment: PERFORMED BY:[address] [phone] MEDICAL ELÍAS GERMAN M.D.Performed By: #### BMP, CBC ####[place] [address] USABasophils/100 WBC (Bld)0.1 %Normal.The [facility] Physician GroupComment on above:Performed By: #### BMP, CBC ####[place] [address] USAEosinophils (Bld) [#/Vol]0.0 10*3/uLNormal 0.0-0.45The [facility] Physician [facility] BiloxiComment on above:Performed By: #### BMP, CBC ####[place] [address] [place] Eosinophils/100 WBC (Bld)0.1 %Normal.The [facility] Physician GroupComment on above:Performed By: #### BMP, CBC ####[place] [address] USAErythrocyte distribution width (RBC) [Ratio]15.4 % High12.0-14.8The [facility] Physician GroupComment on above:Performed By: #### BMP, CBC ####[place] [address] USAHematocrit (Bld) [Volume fraction]36.1 %Low38.8-50.0The [facility] Physician [facility] BiloxiComment on above:Performed By: #### BMP, CBC ####[place] [address] USAHemoglobin (Bld) [Mass/Vol]11.7 g/dL Low13.0-17.0The [facility] Physician GroupComment on above:Performed By: #### BMP, CBC ####[place] [address] USALymphocytes (Bld) [#/Vol]0.4 10*3/uLLow1.00-4.8The [facility] Physician Group Comment on above:Performed By: #### BMP, CBC ####[place] [address] USALymphocytes/100 WBC (Bld)6.9 %Normal. The [facility] Physician GroupComment on above:Performed By: #### BMP, CBC ####[place] [address] USAMCH (RBC) [Entitic mass]30.3 nhBksqpp81.5-35.2The [facility] Physician GroupComment on above:Performed By: #### BMP, CBC ####[place] [address] USAMCV (RBC) [Entitic vol]93.6 yFSwqsge99.5-101 The [facility] Physician GroupComment on above:Performed By: #### BMP, CBC ####[place] [address] USAMean Corpuscular HGB Conc32.3 g/dLLow32.5-35.6The [facility] Physician GroupComment on above:Performed By: #### BMP, CBC ####[place] [address] USAMonocytes (Bld) [#/Vol]0.7 10*3/uLNormal0.0-0.8The [facility] Physician GroupComment on above:Performed By: #### BMP, CBC ####[place] [address] [place] Monocytes/100 WBC (Bld)11.9 %Normal.The [facility] Physician GroupComment on above:Performed By: #### BMP, CBC ####[address] [address] USANeutrophils (Bld) [#/Vol]4.9 10*3/uLNormal1.8-7.7The [facility] Physician GroupComment on above:Performed By: #### BMP, CBC ####[address] [address] [place] Neutrophils/100 WBC (Bld)81.0 %Normal.The [facility] Physician GroupComment on above:Performed By: #### BMP, CBC ####[address] [address] USANRBC%0.1 /100{WBC}Normal0-0.5The [facility] Physician GroupComment on above:Performed By: #### BMP, CBC ####[address] [address] USAPlatelet mean volume (Bld) [Entitic vol]7.8 fLNormal6.6-10.1The [facility] Physician GroupComment on above: Performed By: #### BMP, CBC ####[address] [address] USAPlatelets (Bld) [#/Vol]188 10*3/vKNsbzil685-530Slz [facility] Physician GroupComment on above:Performed By: #### BMP, CBC ####[address] [address] USARBC (Bld) [#/Vol]3.86 10*6/uLLow3.90-5.60The [facility] Physician GroupComment on above:Performed By: #### BMP, CBC ####[address] [address] USAWBC (Bld) [#/Vol]6.1 10*3/uLNormal4.1-10.5The [facility] Physician GroupComment on above:Performed By: #### BMP, CBC ####[address] [address] USAWhite Blood Count6.1 [CFU]/mLNormal4.1-10.5The [facility] Physician GroupComment on above:Performed By: #### BMP, CBC ####[address] [address] USAECH echo transthoracicon 50-86-9434FOV echo transthoracicNormHCA [facility] Physician [facility]oxiXR chest 1V portableon 55-76-5096NB chest 1V portableNoOur Lady of Mercy HospitalAnti-Xa UF Heparinon 46-72-4604Qphp-Xa UF Heparin0.21Low0.30-0.70The [facility] Physician [facility] BiloxiComment on above:Result Comment: Use the aPTT protocol when triglycerides are > 800 mg/dL, total bilirubin is > 20 mg/dL and/or patient has received a DOAC, Fondaparinux or LMWH within 72 hours AND baseline anti-Xa level is > 0.7 units/mLPERFORMED BY:[address] [place], [place] [phone] MEDICAL ELÍAS GERMAN M.D.Performed By: #### UFHEP ####[place] [address] [place] [address] USAAnti-Xa UF Heparin0.20Low0.30-0.70The [facility] Physician GroupComment on above:Result Comment: Use the aPTT protocol when triglycerides are > 800 mg/dL, total bilirubin is > 20 mg/dL and/or patient has received a DOAC, Fondaparinux or LMWH within 72 hours AND baseline anti-Xa level is > 0.7 units/mLPERFORMED BY:[address] [place], [place] [phone] MEDICAL ELÍAS GERMAN M.D.Performed By: #### UFHEP ####[address] [address] [address] USAAnti-Xa UF Heparin0.05Low0.30-0.70[facility] Physician GroupComment on above:Result Comment: Use the aPTT protocol when triglycerides are > 800 mg/dL, total bilirubin is > 20 mg/dL and/or patient has received a DOAC, Fondaparinux or LMWH within 72 hours AND baseline anti-Xa level is > 0.7 units/mLPERFORMED BY:[facility] DOMINGUEZD[place], [place] [phone] MEDICAL DIRECTORCELESTE GERMAN M.D.Performed By: #### UFHEP ####[facility] Campbellatrium [place] [address] USAArterial Blood Gason 31-78-7275INH Base Excess-6.6 mmol/LLow-3.0-3.0[facility] Physician GroupComment on above:Performed By: #### ABG ####Point of Care testing,ABG Frac Inspired O245 %NormalThe [facility] Physician GroupComment on above:Performed By: #### ABG ####Point of Care testing,ABG Oxygen Content7.6 mmol/LNormal6.6-9.7[facility] Physician GroupComment on above:Performed By: #### ABG ####Point of Care testing,ABG Oxygen Jbfjegtvyq31.6 %Ffbond21.0-100.0 [facility] Physician GroupComment on above:Performed By: #### ABG ####Point of Care testing,ABG DGG342.5 mm[Hg]Gwitbz75.0-45.0[facility] Physician [facility] Comment on above:Performed By: #### ABG ####Point of Care testing,ABG PEEP5 NormalThe [facility] Physician GroupComment on above:Performed By: #### ABG ####Point of Care testing,ABG PH7.30Low7.35-7.45[facility] Physician [facility] Comment on above:Performed By: #### ABG ####Point of Care testing,ABG PO288.3 mm[Hg]Pfrduz63.0-100.0[facility] Physician GroupComment on above:Performed By: #### ABG ####Point of Care testing,ABG TV500 mLNormalThe [facility] Physician GroupComment on above:Performed By: #### ABG ####Point of Care testing,CO2 [Moles/Vol]20.6 mmol/LLow23.0-27.0[facility] Physician GroupComment on above: Performed By: #### ABG ####Point of Care testing,HCO3 (Bld) [Moles/Vol]19.4 mmol/LLow23.0-29.0[facility] Physician GroupComment on above:Performed By: #### ABG ####Point of Care testing,Respiratory CriticalNoTransylvania Regional Hospital Physician GroupComment on above:Result Comment: Critical Value called on: 08/01/2025 at 05:05PERFORMED BY:[address] [address] [address] NELLYScarlettJeremiSHARDAL[place], [place] [phone] MEDICAL ELÍAS GERMAN M.D.Performed By: #### ABG ####Point of Care testing,Set Respiratory Rate16 NormalThe [facility] Physician GroupComment on above:Performed By: #### ABG ####Point of Care testing,VBG Draw SiteRight BrachialNoTransylvania Regional Hospital Physician GroupComment on above:Performed By: #### ABG ####Point of Care testing,Ventilator ModeACAdventHealth Deltona ER Physician GroupComment on above: Performed By: #### ABG ####Point of Care testing,B-Type Natriuretic Peptideon 96-51-6544Ajlyriepinr peptide B (Bld) [Mass/Vol]440.0 pg/mLHigh5-100[facility] Physician GroupComment on above:Result Comment: PERFORMED BY:[address] [address] FINNEGANIG[address] ABREUUSKYDALTON, [place] [phone] MEDICAL ELÍAS GERMAN M.D.Performed By: #### BMP, LACTIC, BNP, [id number], LIPID, PT, CBC, PTT ####[address] [address] USABasic Metabolic Panelon 98-04-9944Zgsmo gap [Moles/Vol]11.8 mmol/LNormal6.0-15.0[facility] Physician GroupComment on above:Order Comment: FASTING YPerformed By: #### BMP, LACTIC, BNP, [id number], LIPID, PT, CBC, PTT ####[address] [address] USACalcium [Mass/Vol]8.0 mg/dLLow8.6-10.3[facility]ician Group Comment on above:Order Comment: FASTING YPerformed By: #### BMP, LACTIC, BNP, [id number], LIPID, PT, CBC, PTT ####[address] [place] [address] USAChloride [Moles/Vol]99 mmol/EErbjfc27-015Roa [facility] Physician GroupComment on above:Order Comment: FASTING YPerformed By: #### BMP, LACTIC, BNP, [id number], LIPID, PT, CBC, PTT ####[place] [id number] USACO2 [Moles/Vol]27.6 mmol/L Gxjaxv47.0-31.0[facility] Physician GroupComment on above:Order Comment: FASTING YPerformed By: #### BMP, LACTIC, BNP, [id number], LIPID, PT, CBC, PTT ####[address] [place] Creatinine [Mass/Vol]2.82 mg/dLHigh0.70-1.30[facility] Physician GroupComment on above:Order Comment: FASTING YPerformed By: #### BMP, LACTIC, BNP, [id number], LIPID, PT, CBC, PTT ####[address] [place] [address] USACreatinine Clr Calc Chzkkqcz81.70NormalThe [facility] Physician GroupComment on above:Order Comment: FASTING YPerformed By: #### BMP, LACTIC, BNP, [id number], LIPID, PT, CBC, PTT ####[facility] [address] [place] [address] USAGFR/1.73 sq M.predicted MDRD (S/P/Bld) [Vol rate/Area]23.923 mL/min/{1.73_m2}NormalThe [facility] Physician GroupComment on above:Order Comment: FASTING YPerformed By: #### BMP, LACTIC, BNP, [id number], LIPID, PT, CBC, PTT ####[address] [place] [address] USAGlucose [Mass/Vol]95 mg/iQPzilpk36-931Jab [facility]ician Group Comment on above:Order Comment: FASTING YResult Comment: Random Glucose Reference Range is dependent on time and content of last meal. Glucose of more than 200 mg/dL in a nonstressed, ambulatory subject supports the diagnosis of Diabetes Mellitus. ADA recommended reference rangePerformed By: #### BMP, LACTIC, BNP, [id number], LIPID, PT, CBC, PTT ####[facility] [address] [place] [address] USAPotassium [Moles/Vol]4.4 mmol/LNormal 3.5-5.1[facility] Physician GroupComment on above:Order Comment: FASTING Y Performed By: #### BMP, LACTIC, BNP, [id number], LIPID, PT, CBC, PTT ####[address] [address] USASodium [Moles/Vol]134 mmol/NOgl178-095Aht [facility] Physician GroupComment on above: Order Comment: FASTING YPerformed By: #### BMP, LACTIC, BNP, [id number], LIPID, PT, CBC, PTT ####[address] [address] USAUrea nitrogen [Mass/Vol]77 mg/dLHigh7-25[facility] Comment on above:Order Comment: FASTING YPerformed By: #### BMP, LACTIC, BNP, [id number], LIPID, PT, CBC, PTT ####[address] [address] USAComplete Blood Count Auto Diffon 10-00-2494Vjvfrtdvr (Bld) [#/Vol]0.0 10*3/uLNormal0.0-0.2[facility] Physician GroupComment on above:Result Comment: PERFORMED BY:[address] [place], [place] [phone] MEDICAL DIRECTORCELESTE GERMAN M.D.Performed By: #### BMP, LACTIC, BNP, [id number], LIPID, PT, CBC, PTT ####[address] Basophils/100 WBC (Bld)0.1 %Normal.The [facility] Physician GroupComment on above:Performed By: #### BMP, LACTIC, BNP, PFYC44DLW, LIPID, PT, CBC, PTT ####[address] Eosinophils (Bld) [#/Vol]0.0 10*3/uLNormal0.0-0.45[facility] Comment on above:Performed By: #### BMP, LACTIC, BNP, [id number], LIPID, PT, CBC, PTT ####[address] Eosinophils/100 WBC (Bld)0.0 %Normal.The [facility] Physician GroupComment on above:Performed By: #### BMP, LACTIC, BNP, [id number], LIPID, PT, CBC, PTT ####[address] Erythrocyte distribution width (RBC) [Ratio]15.8 %High12.0-14.8[facility] Physician GroupComment on above:Performed By: #### BMP, LACTIC, BNP, [id number], LIPID, PT, CBC, PTT ####[place] [address] USAHematocrit (Bld) [Volume fraction]37.9 %Low38.8-50.0[facility] Physician GroupComment on above:Performed By: #### BMP, LACTIC, BNP, [id number], LIPID, PT, CBC, PTT ####[place] [address] USAHemoglobin (Bld) [Mass/Vol]12.5 g/dLLow13.0-17.0[facility] Physician GroupComment on above:Performed By: #### BMP, LACTIC, BNP, [id number], LIPID, PT, CBC, PTT ####[place] [address] USALymphocytes (Bld) [#/Vol]0.4 10*3/uLLow1.00-4.8[facility] Physician GroupComment on above:Performed By: #### BMP, LACTIC, BNP, [id number], LIPID, PT, CBC, PTT ####[place] [address] USALymphocytes/100 WBC (Bld)9.8 %Normal.[facility] Comment on above:Performed By: #### BMP, LACTIC, BNP, [id number], LIPID, PT, CBC, PTT ####[address] MCH (RBC) [Entitic mass]30.7 vqJzxnvi04.5-35.2[facility] Comment on above:Performed By: #### BMP, LACTIC, BNP, CPEC50QGL, LIPID, PT, CBC, PTT ####[address] StreetMCV (RBC) [Entitic vol]93.1 qDCvorxb01.5-101The [facility] Physician GroupComment on above:Performed By: #### BMP, LACTIC, BNP, YGIC00MET, LIPID, PT, CBC, PTT ####[address] Corpuscular HGB Conc32.9 g/pEYluxoz82.5-35.6[facility] Physician GroupComment on above:Performed By: #### BMP, LACTIC, BNP, [id number], LIPID, PT, CBC, PTT ####[place] [address] [place] Monocytes (Bld) [#/Vol]0.3 10*3/uLNormal0.0-0.8[facility] Comment on above:Performed By: #### BMP, LACTIC, BNP, YIZW59OSF, LIPID, PT, CBC, PTT ####[place] [address] [place] Monocytes/100 WBC (Bld)7.7 %Normal.The [facility] Physician GroupComment on above:Performed By: #### BMP, LACTIC, BNP, [id number], LIPID, PT, CBC, PTT ####[address] Neutrophils (Bld) [#/Vol]3.6 10*3/uLNormal1.8-7.7[facility] Physician [facility] Comment on above:Performed By: #### BMP, LACTIC, BNP, IGMZ58SUR, LIPID, PT, CBC, PTT ####[address] Neutrophils/100 WBC (Bld)82.4 %Normal.The [facility] Physician GroupComment on above:Performed By: #### BMP, LACTIC, BNP, VGMW24NMJ, LIPID, PT, CBC, PTT ####[address] StreetNRBC% 0.0 /100{WBC}Normal0-0.5The [facility] Physician GroupComment on above:Performed By: #### BMP, LACTIC, BNP, [id number], LIPID, PT, CBC, PTT ####[address] StreetPlatelet mean volume (Bld) [Entitic vol]7.8 fLNormal6.6-10.1[facility] Physician GroupComment on above: Performed By: #### BMP, LACTIC, BNP, RTGC89JPQ, LIPID, PT, CBC, PTT ####[address] Platelets (Bld) [#/Vol]194 10*3/qEBdlgqk765-907Vap [facility] Comment on above:Performed By: #### BMP, LACTIC, BNP, [id number], LIPID, PT, CBC, PTT ####[address] RBC (Bld) [#/Vol]4.07 10*6/uLNormal3.90-5.60[facility] Physician GroupComment on above:Performed By: #### BMP, LACTIC, BNP, RTNL51FAG, LIPID, PT, CBC, PTT ####[address] [address] USAWBC (Bld) [#/Vol]4.4 10*3/uLNormal4.1-10.5[facility] Physician GroupComment on above:Performed By: #### BMP, LACTIC, BNP, GUZQ47ZIG, LIPID, PT, CBC, PTT ####[address] [address] USAWhite Blood Count4.4 [CFU]/mLNormal4.1-10.5[facility] Physician GroupComment on above:Performed By: #### BMP, LACTIC, BNP, [id number], LIPID, PT, CBC, PTT ####[address] [address] [place] Creatine Kinaseon 99-77-7844BL [Catalytic activity/Vol]61 U/DQzssrl32-632Naq [facility] Physician GroupComment on above:Performed By: #### HS TROP, CK ####[address] [address] USACK [Catalytic activity/Vol]80 U/QHuiwbv75-659Ybv [facility] Physician GroupComment on above:Performed By: #### CK, HS TROP ####[address] [address] USACK [Catalytic activity/Vol]103 U/SFquiks38-699 [facility] Physician GroupComment on above:Performed By: #### HS TROP, CK ####[address] [address] USACK [Catalytic activity/Vol]121 U/LCfrabw00-146Bis [facility] Physician GroupComment on above:Performed By: #### CK, HS TROP ####[address] [address] USAECG 12 lead ECGon 38-74-8650EAM 12 lead ECG NormalThe [facility] Physician GroupGlucose Poct Glucometerson 19-28-7294Azdfrmm8 Glu2: Cleaned MeterNormHCA [facility] Physician GroupComment on above:Result Comment: PERFORMED BY:[address] [address] [address] [place]UEZ[place], [place] [phone] MEDICAL ELÍAS GERMAN M.D.Performed By: #### GLULS ####Point of Care testing,Glucose [Mass/Vol]87 mg/dLAdventHealth Deltona ER Physician [facility]iComment on above:Result Comment: Random Glucose Reference Range is dependent on time and content of last meal. Glucose of more than 200 mg/dL in a nonstressed, ambulatory subject supports the diagnosis of Diabetes Mellitus.Performed By: #### GLULS ####Point of Care testing,Lactic Acid on 85-35-5555Hpbktct [Moles/Vol]1.6 mmol/LNormal0.5-1.9[facility] Physician GroupComment on above:Result Comment: Lactic Acid reference range has been updated to 0.5 ? 1.9 mmol/L and the critical range of 2.0 or greater.PERFORMED BY:[address] [place] [address] [phone] MEDICAL ELÍAS GERMAN M.D.Performed By: #### BMP, LACTIC, BNP, [id number], LIPID, PT, CBC, PTT ####[address] [address] USALactic Acid Reflexon 19-78-5250Hkswes Acid Reflex2.3 mmol/LOff scale high0.5-1.9The [facility] Physician GroupComment on above:Result Comment: Critical Result : Called to and read back by: IDANIA OCHOA at: 08/01/2025 00:53:29 by:[id number] Lactic Acid reference range has been updated to 0.5 ? 1.9 mmol/L and the critical range of 2.0or greater.PERFORMED BY:[address] [place] [address] [address] CANDELARIOJeremiSHARDALTON, [place] [phone] 87PATHOLOGIST MEDICAL ELÍAS GERMAN M.D.Performed By: #### LACTIC RFX ####[address] [address]RNGXbcaj Panelon 63-42-5476Zxdczinedyl [Mass/Vol]111 mg/rHQlw037-367Vvo [facility] GroupComment on above:Order Comment: FASTING YResult Comment: Chol less than 200 mg/dl low risk Chol 201-239 mg/dl borderline risk Chol 240 mg/dl and greater high riskPerformed By: #### BMP, LACTIC, BNP, GCCX77VXM, LIPID, PT, CBC, PTT ####[address] [place] [id number] USACholesterol in HDL [Mass/Vol]38 mg/dPPpikpa10-35Irr [facility]ician Group Comment on above:Order Comment: FASTING YResult Comment: HDL CHOL ATP-III CLASSIFICATION Cardiovascular Risk HDL > or equal to 60 mg/dL LOW HDL < 40 mg/dL HIGHPerformed By: #### BMP, LACTIC, BNP, [id number], LIPID, PT, CBC, PTT ####[place] [place] Cholesterol.total/Cholesterol in HDL [Mass ratio]2.9 {ratio}Normal<5.0The [facility] Physician GroupComment on above:Order Comment: FASTING YPerformed By: #### BMP, LACTIC, BNP, ZBRS84EPH, LIPID, PT, CBC, PTT ####[address] [place] [address] USALDL Cholesterol,Tgilteyitc22 mg/dLNormal0-100The [facility] Physician GroupComment on above:Order Comment: FASTING YResult Comment: LDL ATP III CLASSIFICATION LDL less than 100 mg/dL Optimal LDL 100-129 mg/dL Near or above optimal LDL 130-159 mg/dL Borderline high LDL 160-189 mg/dL High LDL greater than 189 mg/dL Very highPerformed By: #### BMP, LACTIC, BNP, ZFRQ82AVL, LIPID, PT, CBC, PTT ####[address] [address] USATriglyceride w/Nadnru939 mg/dL High0-149The [facility] Physician GroupComment on above:Order Comment: FASTING Y Result Comment: TRIG ATP III CLASSIFICATION TRIG less than 150 mg/dL Normal TRIG 150-199 mg/dL Borderline high TRIG 200-500 mg/dL High TRIG greater than 500 mg/dL Very high Standard traceable to the Center for Disease Conrtrol and Prevention (CDC) test method.Performed By: #### BMP, LACTIC, BNP, [id number], LIPID, PT, CBC, PTT ####[facility] [place] [address] [facility] CENTERVLDL LTPPRTTPKIH07 mg/dLNormalThMinidoka Memorial Hospital Physician GroupComment on above:Order Comment: FASTING YPerformed By: #### BMP, LACTIC, BNP, IYZK02LTU, LIPID, PT, CBC, PTT ####[address] [place] [address] [facility] CENTERPartial Thromboplastin Timeon 85-43-6383zMSN Coag (Bld) [Time]34.1 s Keiuor79.1-36.5The [facility] Physician GroupComment on above:Result Comment: A hematocrit value greater than 55% may lead to inaccurate results in coagulation testing. Patients having hematocrit values >55% require a special collection tube for coagulation studies. Please contact the laboratory at [phone] for redraw instructions.PERFORMED BY:[address] NELLYScarlettJeremiMCCASK[place], [place] [phone] MEDICAL ELÍAS GERMAN M.D.Performed By: #### BMP, LACTIC, BNP, QYRE01GHW, LIPID, PT, CBC, PTT ####[address] [address] [facility] Prothrombin Time INRon 01-06-3021QGU Coag (PPP) [Relative time]1.0 {INR}Normal [facility] Physician GroupComment on above:Result Comment: INR [...] valves: 3 - 4.5 Performed By: #### BMP, LACTIC, BNP, DRIR60CQP, LIPID, PT, CBC, PTT ####[facility] [address] [place] [address] USAPT Coag (PPP) [Time]11.5 sNormal9.0-12.9[facility] Physician GroupComment on above: Result Comment: A hematocrit value greater than 55% may lead to inaccurate results in coagulation testing. Patients having hematocrit values >55% require a special collection tube for coagulation studies. Please contact the laboratory at [phone] for redraw instructions.Performed By: #### BMP, LACTIC, BNP, MGZI44FJM, LIPID, PT, CBC, PTT ####[facility] [place] [address] USAThyroid Antibodies TPO+Tg Abon 08-01-2025 Antithyroglobulin Ab404.9Oobqij2.0-0.9The [facility] Physician GroupComment on above:Result Comment: Thyroglobulin Antibody measured by [employer] It should be noted that the presence of thyroglobulin antibodies may not be pathogenic nor diagnostic, especially at very low levels. The assay configuration consultant has found that four percent of individuals without evidence of t hyroid disease or autoimmunity will have positive TgAb levels up to 4 IU/mL. Performed at: [facility] [address] [id number] [employer] Clerk: Sidney Osman PhD, Phone: [phone] BY:[address] [place], [place] [phone] MEDICAL DIRECTORCELESTE GERMAN M.D.Performed By: #### THY AB ####[facility] ,Thyroid Peroxidase Luqumtrjtl77Csqsbe6-55Bpq [facility] Physician GroupComment on above:Performed By: #### THY AB ####[facility] , Treponema pallidum Ab(FTA-ABS)on 63-49-7575Ktgugdmfs pallidum Ab(FTA-ABS) Non-ReactiveNormalNon ReactiveThe [facility] Physician GroupComment on above: Result Comment: Performed at: [facility] [address] [id number] [employer] Clerk: Sidney Osman PhD, Phone: [phone] BY:[address] [address] [place], [place] [phone] MEDICAL ELÍAS GERMAN M.D.Performed By: #### VITB1, FTA ####[facility] ,Troponin I High Sensitivityon 86-44-7161Noahiors I High Iolifauusvx1208Mia scale [address] Physician GroupComment on above:Result Comment: Critical Result : Called to and read back by: MANAN CHEEK at: 08/01/2025 21:08:16 by:[email or web address] The Troponin units of report have been changed to meet the Chest Pain Accreditation req uirement, element EC5.M1l2. Troponin units are changed from pg/ml to ng/L. Also, the decimal is removed and results are in whole numbers.PERFORMED BY:[address] [address] [address] [place]UEZD[place], [place] [phone] MEDICAL ELÍAS GERMAN M.D.Performed By: #### HS TROP, CK ####[address] [address] [facility] Troponin I High Maomncbvcvr6069Sto scale [address] Physician [facility] Comment on above:Result Comment: Critical Result : Called to and read back by: BEV SAUCEDA at: 08/01/2025 10:52:10 by:[id number] The Troponin units of report have been changed to meet the Chest Pain Accreditation requirement, element EC5.M1l2. Troponin units are changed from pg/ml to ng/L. Also, the decimal is removed and results are in whole numbers.PERFORMED BY:[address] [place]UEZD[place], [place] [phone] MEDICAL ELÍAS GERMAN M.D.Performed By: #### CK, HS TROP ####[address] [place] [address] USATroponin I High Gbbtxhuuuxs1409Lqa scale [address] Physician GroupComment on above: Result Comment: Critical Result : Called to and read back by: IDANIA OCHOA at: 08/01/2025 04:33:48 by:[id number] The Troponin units of report have been changed to meet the Chest Pain Accreditation requirement, element EC5.M1l2. Troponin units are changed from pg/ml to ng/L. Also, the decimal is removed andresults are in whole numbers.PERFORMED BY:[address] ANDREEJeremiSHAR,[place] [phone] MEDICAL DIRECTORCELESTE GERMAN M.D.Performed By: #### HS TROP, CK ####[address] [address] USATroponin I High Zjgibmmrbfj9852Ctk scale high0-20The [facility] Physician GroupComment on above:Result Comment: Critical Result : Called to and read back by: IDANIA OCHOA at: 08/01/2025 00:53:08 by:[id number] The Troponin units of report have been changed to meet the Chest Pain Accreditation requirement, element EC5.M1l2. Troponin units are changed from pg/ml to ng/L. Also, the decimal is removed andresults are in whole numbers.PERFORMED BY:[address] ANDREEJeremiNEWBURG, [place] [phone] MEDICAL ELÍAS GERMAN M.D.Performed By: #### CK, HS TROP ####[address] [address] USAUS renal BIon 06-59-4127JH renal BINormalThe [facility] Vit. B12/Folate Profileon 93-46-5021Amnailgjs (Vitamin B12) [Mass/Vol]435 pg/mL Hhwfvn808-659Bvp [facility] HospitalComment on above:Order Comment: FASTING YPerformed By: #### BMP, LACTIC, BNP, SMFK17GLD, LIPID, PT, CBC, PTT ####[address] [address] USAFolate 11.6 ng/mLNormal>5.9The [facility] GroupComment on above:Order Comment: FASTING YResult Comment: Folate reference range: >5.9 ng/ml The WHO technical consultation on folate and vitamin b12 deficiencies has determined that folate concentrations less than 4 ng/ml are considered deficient.PERFORMED BY:[address] [place] [address] [address] CANDELARIOJeremiSHARDALTON, [place] [phone] MEDICAL ELÍAS GERMAN M.D.Performed By: #### BMP, LACTIC, BNP, RTKB24TSC, LIPID, PT, CBC, PTT ####[address] [address] USAVitamin B1 (Thiamine) Bloodon 21-86-6219Fzkgvxg B1 (Thiamine) Blood84.4Qnyyph46.5-200.0The [facility] Physician GroupComment on above:Result Comment: This test was developed and its performance characteristics determined by [facility]. It has not been cleared or approved by the Food and Drug Administration. Performed at: [facility] [address] [id number] [employer] Clerk: Gareth Alford MD, Phone: [phone] BY:[address] [place] [address] [address] NELLYScarlettJeremiSHARDALTON, [place] [phone] MEDICAL ELÍAS GERMAN M.D.Performed By: #### VITB1, FTA ####[facility] ,XR chest 1V portableon 08-01-2025 XR chest 1V portableNoTransylvania [facility] Hospital Physician HhwxmI3B with Estimated Average Gluon 73-29-9173Mnjskvv [Mass/Vol]117 mg/dLNoTransylvania Regional Hospital Physician GroupComment on above:Result Comment: PERFORMED BY:[address] [address] [address] [place], [place] [phone] MEDICAL ELÍAS GERMAN M.D.Performed By: #### A1C WTH eA ####[address] [address]WCLBtW6p (Bld) [Mass fraction]5.7 %High4.3-5.6The [facility] Physician GroupComment on above:Result Comment: Increased risk for diabetes: 5.7 - 6.4 diabetes: >6.4 glycemic control for adults with diabetes: <7.0Performed By: #### A1C WTH eA ####[address] [address]MPPWagg-Rw UF Heparinon 60-65-2385Lhsl-Xa UF Heparin<0.04Low0.30-0.70The [facility] Physician [facility] Comment on above:Result Comment: Use the aPTT protocol when triglycerides are > 800 mg/dL, total bilirubin is > 20 mg/dL and/or patient has received a DOAC, Fondaparinux or LMWH within 72 hours AND baseline anti-Xa level is > 0.7 units/mLPERFORMED BY:[address] [place]ZARRAGAMCCASKILL, [place] [phone] MEDICAL DIRECTORCELESTE GERMAN M.D.Performed By: #### UFHEP ####[address] [address] USAAnti-Xa UF Heparin0.05Low0.30-0.70The [facility] Physician GroupComment on above:Result Comment: Use the aPTT protocol when triglycerides are > 800 mg/dL, total bilirubin is > 20 mg/dL and/or patient has received a DOAC, Fondaparinux or LMWH within 72 hours AND baseline anti-Xa level is > 0.7 units/mLPERFORMED BY:[address] [place], [place] [phone] MEDICAL ELÍAS GERMAN M.D.Performed By: #### PT, CUBLD, MG, LACTIC, BMP, HEPATIC, PTT, SCAN CBC, UFHEP, BNP ####[address] [address] [facility] Arterial Blood Gason 63-22-5838ENT Base Excess-2.7 mmol/LNormal-3.0-3.0The [facility] Physician GroupComment on above:Performed By: #### ABG ####Point of Care testing,ABG Frac Inspired O250 %NormalThe [facility] Physician GroupComment on above:Performed By: #### ABG ####Point of Care testing,ABG Oxygen Content8.2 mmol/LNormal6.6-9.7The [facility] Physician GroupComment on above:Performed By: #### ABG ####Point of Care testing,ABG Oxygen Wvqtnhtnez00.9 %Low95.0-100.0The [facility] Physician GroupComment on above:Performed By: #### ABG ####Point of Care testing,ABG CUJ240.3 mm[Hg]Off scale high35.0-45.0The [facility] Physician GroupComment on above:Performed By: #### ABG ####Point of Care testing,ABG PEEP5 NormalThe [facility] Physician GroupComment on above:Performed By: #### ABG ####Point of Care testing,ABG PH7.28Low7.35-7.45The [facility] Physician [facility] Comment on above:Performed By: #### ABG ####Point of Care testing,ABG PO272.1 mm[Hg]Low80.0-100.0The [facility] Physician GroupComment on above:Performed By: #### ABG ####Point of Care testing,ABG TV500 mLNormalThe [facility] Physician GroupComment on above:Performed By: #### ABG ####Point of Care testing,CO2 [Moles/Vol]26.5 mmol/VGygvee76.0-27.0The [facility] Physician GroupComment on above:Performed By: #### ABG ####Point of Care testing,HCO3 (Bld) [Moles/Vol] 24.8 mmol/CRimcsg89.0-29.0The [facility] Physician GroupComment on above: Performed By: #### ABG ####Point of Care testing,Respiratory CriticalNormalThe [facility] Physician GroupComment on above:Result Comment: Critical Value called on: 07/31/2025 at 21:22PERFORMED BY:[address] [address] [address] [place], [place] [phone] MEDICAL DIRECTORCELESTE GERMAN M.D.Performed By: #### ABG ####Point of Care testing,Set Respiratory Rate16 NormalThe [facility] Physician GroupComment on above:Performed By: #### ABG ####Point of Care testing,VBG Draw SiteRight RadialNormalThe [facility] Physician GroupComment on above:Performed By: #### ABG ####Point of Care testing, Ventilator ModeACAdventHealth Deltona ER Physician GroupComment on above:Performed By: #### ABG ####Point of Care testing,B-Type Natriuretic Peptideon 07-31-2025 Natriuretic peptide B (Bld) [Mass/Vol]695.0 pg/mLHigh5-100The [facility] Physician GroupComment on above:Result Comment: PERFORMED BY:[address] [place], [place] [phone] MEDICAL DIRECTORCELESTE GERMAN M.D.Performed By: #### PT, CUBLD, MG, LACTIC, BMP, HEPATIC, PTT, SCAN CBC, UFHEP, BNP ####[address] [address] USABasic Metabolic Panelon 67-83-1014Ictfz gap [Moles/Vol]12.2 mmol/LNormal6.0-15.0The [facility] HospitalComment on above:Performed By: #### PT, CUBLD, MG, LACTIC, BMP, HEPATIC, PTT, SCAN CBC, UFHEP, BNP ####[address] [address] USACalcium [Mass/Vol]8.4 mg/dLLow8.6-10.3The [facility] HospitalComment on above:Performed By: #### PT, CUBLD, MG, LACTIC, BMP, HEPATIC, PTT, SCAN CBC, UFHEP, BNP ####[address] [address] USAChloride [Moles/Vol]93 mmol/BLse59-410Wfi [facility] Physician [facility]oxiComment on above:Performed By: #### PT, CUBLD, MG, LACTIC, BMP, HEPATIC, PTT, SCAN CBC, UFHEP, BNP ####[address] [address] USACO2 [Moles/Vol]31.2 mmol/LHigh21.0-31.0The [facility] Physician GroupComment on above:Performed By: #### PT, CUBLD, MG, LACTIC, BMP, HEPATIC, PTT, SCAN CBC, UFHEP, BNP ####[address] [place] [address] USACreatinine [Mass/Vol]3.19 mg/dLHigh0.70-1.30The [facility] Physician [facility] Comment on above:Performed By: #### PT, CUBLD, MG, LACTIC, BMP, HEPATIC, PTT, SCAN CBC, UFHEP, BNP ####[address] [place] [address] USACreatinine Clr Calc Bqctuofc82.17NormHCA [facility] Physician [facility] BiloxiComment on above:Performed By: #### PT, CUBLD, MG, LACTIC, BMP, HEPATIC, PTT, SCAN CBC, UFHEP, BNP ####[address] [place] [address] USAGFR/1.73 sq M.predicted MDRD (S/P/Bld) [Vol rate/Area]20.633 mL/min/{1.73_m2}NormalThe [facility] Physician [facility]oxiComment on above:Performed By: #### PT, CUBLD, MG, LACTIC, BMP, HEPATIC, PTT, SCAN CBC, UFHEP, BNP ####[address] [place] [address] USAGlucose [Mass/Vol]107 mg/kAIllg50-016Urj [facility] Physician GroupComment on above:Result Comment: Random Glucose Reference Range is dependent on time and content of last meal. Glucose of more than 200 mg/dL in a nonstressed, ambulatory subject supports the diagnosis of Diabetes Mellitus. ADA recommended reference rangePerformed By: #### PT, CUBLD, MG, LACTIC, BMP, HEPATIC, PTT, SCAN CBC, UFHEP, BNP ####[place] [address] USAPotassium [Moles/Vol]4.4 mmol/LNormal3.5-5.1The [facility] Physician [facility] BiloxiComment on above:Performed By: #### PT, CUBLD, MG, LACTIC, BMP, HEPATIC, PTT, SCAN CBC, UFHEP, BNP ####[address] [place] [address] USASodium [Moles/Vol]132 mmol/YCrd865-802Rpr [facility] Physician GroupComment on above:Performed By: #### PT, CUBLD, MG, LACTIC, BMP, HEPATIC, PTT, SCAN CBC, UFHEP, BNP ####[address] [address] [facility] CENTERUrea nitrogen [Mass/Vol]79 mg/dLHigh7-25The [facility] Physician GroupComment on above:Performed By: #### PT, CUBLD, MG, LACTIC, BMP, HEPATIC, PTT, SCAN CBC, UFHEP, BNP ####[place] [address] USABlood Cultureon 64-94-4463Flyeyynj identified Cx Nom (Bld)NO GROWTH 5 DAYS PERFORMED BY: [place] [address] PATHOLOGIST [employer] PORTAL CONSULTANT CELESTE GERMAN M.D.NormalThe [facility] Physician GroupComment on above: Performed By: #### PT, CUBLD, MG, LACTIC, BMP, HEPATIC, PTT, SCAN CBC, UFHEP, BNP ####[id number] [facility] Bacteria identified Cx Nom (Bld)NO GROWTH 5 DAYS PERFORMED BY: [facility] [address] [place] [address] PATHOLOGIST [employer] PORTAL CONSULTANT CELESTE GERMAN M.D.NormalThe [facility] Physician GroupComment on above: Performed By: #### PT, CUBLD, MG, LACTIC, BMP, HEPATIC, PTT, SCAN CBC, UFHEP, BNP ####[address] [address] [facility] Creatine Kinaseon 35-02-9430WV [Catalytic activity/Vol]151 U/KZjseeo22-272Xnc [facility] Physician GroupComment on above:Performed By: #### CK, HS TROP ####[address] [address] [facility] Dipstick and Microscopicon 98-71-8587Dapnhpwpgi (U)CloudyCritically abnormal ClearThe [facility] Physician GroupComment on above:Order Comment: Name Collection Type:: Ramirez CatheterPerformed By: #### ADDONUAPLUS ####[address] [place] [address] USABacteria,UrineRare NormalNone SeenThe [facility] Physician GroupComment on above:Order Comment: Name Collection Type:: Ramirez CatheterPerformed By: #### ADDONUAPLUS ####[address] [place] [address] USABilirubin,Urine NegativeNormalNegativeThe [facility] Physician GroupComment on above:Order Comment: Name Collection Type:: Ramirez CatheterPerformed By: #### ADDONUAPLUS ####[address] [place] [address] USAColor (U)YellowNormalYellowThe [facility] Physician GroupComment on above:Order Comment: Name Collection Type:: Ramirez CatheterPerformed By: #### ADDONUAPLUS ####[address] [place] [address] USAGlucose Ql (U)NormalNormalNormalThe [facility] Physician GroupComment on above:Order Comment: Name Collection Type:: Ramirez CatheterPerformed By: #### ADDONUAPLUS ####[address] [place] [address] [place] Granular Casts, Urine5-9NormalNone SeenThe [facility] Physician GroupComment on above:Order Comment: Name Collection Type:: Ramirez CatheterPerformed By: #### ADDONUAPLUS ####[address] [place] [address] USAHyaline Casts,Xhfnb7-34Crzyot7-8Omq [facility] Physician GroupComment on above:Order Comment: Name Collection Type:: Ramirez CatheterPerformed By: #### ADDONUAPLUS ####[address] [place] [address] USAKetones Ql (U)NegativeNormalNegativeThe [facility] Physician Group Comment on above:Order Comment: Name Collection Type:: Ramirez CatheterPerformed By: #### ADDONUAPLUS ####[address] [address] USALeukocyte esterase Test strip Ql (U)NegativeNormal NegativeThe [facility] Physician GroupComment on above:Order Comment: Name Collection Type:: Ramirez CatheterPerformed By: #### ADDONUAPLUS ####[address] [address] USAMucus,UrineRareNormal The [facility] Physician GroupComment on above:Order Comment: Name Collection Type:: Ramirez CatheterResult Comment: PERFORMED BY:[address] [address] [address] [place], [place] [phone] MEDICAL DIRECTORCELESTE GERMAN M.D.Performed By: #### ADDONUAPLUS ####[address] [address] USANitrite,UrineNegative NormalNegativeThe [facility] Physician GroupComment on above:Order Comment: Name Collection Type:: Ramirez CatheterPerformed By: #### ADDONUAPLUS ####[address] [address] USAOccult Blood,Urine2+ NormalNegativeThe [facility] Physician GroupComment on above:Order Comment: Name Collection Type:: Ramirez CatheterResult Comment: PERFORMED BY:[address] [address] [address] [place], [place] [phone] MEDICAL ELÍAS GERMAN M.D.Performed By: #### ADDONUAPLUS ####[address] [address] USApH (U)5.5 [pH]Normal 5.0-9.0The [facility] Physician GroupComment on above:Order Comment: Name Collection Type:: Ramirez CatheterPerformed By: #### ADDONUAPLUS ####[address] [address] USAProtein (U) [Mass/Vol]50 mg/dLNormalNegativeThe [facility] Physician GroupComment on above: Order Comment: Name Collection Type:: Ramirez CatheterPerformed By: #### ADDONUAPLUS ####[address] [address] USARBC,Cdtss18-11Zgmzgl8-4Ucc [facility] Physician GroupComment on above: Order Comment: Name Collection Type:: Ramirze CatheterPerformed By: #### ADDONUAPLUS ####[address] [address] USASpecificy [place],Urine1.557Szyucc7.001-1.030The [facility] Physician GroupComment on above:Order Comment: Name Collection Type:: Ramirez Catheter Performed By: #### ADDONUAPLUS ####[address] [address] USASquamous Epithelial Cell,Qsbye8-8Lqjjrl4-1Jxz [facility] Physician GroupComment on above:Order Comment: Name Collection Type:: Ramirez CatheterPerformed By: #### ADDONUAPLUS ####[address] [address] USAUrobilinogen,UrineNormalNormalNormal [facility] Physician GroupComment on above:Order Comment: Name Collection Type:: Ramirez CatheterPerformed By: #### ADDONUAPLUS ####[address] [address] USAWBC,Vxehz5-0Pereou5-5Cvg [facility] Physician GroupComment on above:Order Comment: Name Collection Type:: Ramirez CatheterPerformed By: #### ADDONUAPLUS ####[address] [address] USADrug Screen,Urineon 07-31-2025 Amphetamine Screen,UrinePositiveNormalNegativeThe [facility] Physician Group Comment on above:Performed By: #### URDS ####[address] [address] USABarbiturate Screen,UrineNegativeNormalNegative [facility] Physician GroupComment on above:Performed By: #### URDS ####[address] [address] [place] Benzodiazepines Screen,UrinePositiveNormalNegativeThe [facility] Physician Group Comment on above:Performed By: #### URDS ####[address] [address] USACannabinoid Screen,UrineNegativeNormalNegative The [facility] Physician GroupComment on above:Result Comment: These are unconfirmed results and should not be used for legal purposes. Drug Cut-Off Concentration: AMPH 1000 ng/mL BHASKAR 200 ng/mL RIKKI 200 ng/mL COCM 300 ng/mL OP 300 ng/mL PCP 25 ng/mL THC 20 ng/mLPERFORMED BY:[address] [place]Jeremi[place], [place] [phone] MEDICAL DIRECTORCELESTE GERMAN M.D.Performed By: #### URDS ####[address] USACocaine Screen,UrineNegative NormalNegativeH[facility] Physician [facility]iComment on above:Performed By: #### URDS ####[address] [place] Opiate Screen,UrineNegativeNormalNegativeH[facility] Physician [facility]oxiComment on above:Performed By: #### URDS ####[address] USAPhencyclidine Screen,UrineNegativeNormalNegativeThe [facility] Physician [facility]iComment on above:Performed By: #### URDS ####[address] USAFree T4 (Free Thyroxine)on 08-77-7171Crwr T4 [Mass/Vol]0.40 ng/dLLow0.61-1.12The [facility] Physician [facility]iComment on above:Performed By: #### T4F, TSH3, T4T ####[address] USAHepatic Panelon 67-99-9501Ezfoecp [Mass/Vol]3.7 g/dLNormal3.5-5.7The [facility] Physician Group Comment on above:Performed By: #### PT, CUBLD, MG, LACTIC, BMP, HEPATIC, PTT, SCAN CBC, UFHEP, BNP ####[address] [place] [address] USAAlbumin/Globulin [Mass ratio]1.4 {ratio}NormalThe [facility] Physician GroupComment on above:Performed By: #### PT, CUBLD, MG, LACTIC, BMP, HEPATIC, PTT, SCAN CBC, UFHEP, BNP ####[place] [address] USAALP [Catalytic activity/Vol]74 U/L Syzutc74-299Upr [facility] Physician GroupComment on above:Performed By: #### PT, CUBLD, MG, LACTIC, BMP, HEPATIC, PTT, SCAN CBC, UFHEP, BNP ####[place] [address] USAALT [Catalytic activity/Vol]16 U/LNormal7-52The [facility] Physician [facility]iComment on above: Performed By: #### PT, CUBLD, MG, LACTIC, BMP, HEPATIC, PTT, SCAN CBC, UFHEP, BNP ####[place] [address] USAAST [Catalytic activity/Vol]26 U/JDsqglm11-45Cke [facility] Physician GroupComment on above:Performed By: #### PT, CUBLD, MG, LACTIC, BMP, HEPATIC, PTT, SCAN CBC, UFHEP, BNP ####[place] [address] USABilirubin [Mass/Vol]1.1 mg/dLHigh0.3-1.0The [facility] Physician GroupComment on above:Performed By: #### PT, CUBLD, MG, LACTIC, BMP, HEPATIC, PTT, SCAN CBC, UFHEP, BNP ####[place] [address] USABilirubin,Indirect0.8 mg/dLNormalThe [facility] Physician GroupComment on above:Performed By: #### PT, CUBLD, MG, LACTIC, BMP, HEPATIC, PTT, SCAN CBC, UFHEP, BNP ####[place] [address] USABilirubin.indirect [Mass/Vol]0.30 mg/dLHigh0.03-0.18The [facility] Physician GroupComment on above:Performed By: #### PT, CUBLD, MG, LACTIC, BMP, HEPATIC, PTT, SCAN CBC, UFHEP, BNP ####[address] [place] [address] USAGlobulin (S) [Mass/Vol]2.7 g/dLNormalThe [facility] Physician GroupComment on above:Performed By: #### PT, CUBLD, MG, LACTIC, BMP, HEPATIC, PTT, SCAN CBC, UFHEP, BNP ####[address] [place] [address] USAProtein [Mass/Vol]6.4 g/dLNormal6.4-8.9The [facility] Physician GroupComment on above:Performed By: #### PT, CUBLD, MG, LACTIC, BMP, HEPATIC, PTT, SCAN CBC, UFHEP, BNP ####[address] [place] [address] USALactic Acidon 52-45-7133Uuhmctg [Moles/Vol]2.3 mmol/LOff scale high0.5-1.9The [facility] Physician [facility]iComment on above:Result Comment: Critical Result : Called to and read back by: IDANIA OCHOA at: 07/31/2025 21:24:20 by:LFM Lactic Acid reference range has been updated to 0.5 ? 1.9 mmol/L and the critical range of 2.0 orgreater.PERFORMED BY:[address] [place]JeremiM[place], [place] [phone] MEDICAL ELÍAS GERMAN M.D.Performed By: #### PT, CUBLD, MG, LACTIC, BMP, HEPATIC, PTT, SCAN CBC, UFHEP, BNP ####[address] [address] USALevetiracetam (Keppra)on 80-57-6473vmtVFDXOmncgz [Mass/Vol]9.2 ug/bAFsrtby30.0-40.0The [facility] Physician GroupComment on above: Result Comment: Performed at: - [facility] [address], [place], [place] [id number] LabDirector: Gareth Alford MD, Phone: [phone] BY:[address] [address] [address] [place] [place], [place] [phone] MEDICAL DIRECTORCELESTE GERMAN M.D.Performed By: #### LEV ####[facility] ,Magnesiumon 10-81-5150Hswmajgvz [Mass/Vol]2.3 mg/dLNormal1.9-2.7The [facility] Physician [facility]iComment on above: Result Comment: PERFORMED BY:[address] [place], [place] [phone] MEDICAL ELÍAS GERMAN M.D.Performed By: #### PT, CUBLD, MG, LACTIC, BMP, HEPATIC, PTT, SCAN CBC, UFHEP, BNP ####[address] [place] [address] USAPartial Thromboplastin Timeon 91-38-5082uWCO Coag (Bld) [Time]30.6 sNormal 25.1-36.5The [facility] Physician [facility]iComment on above:Result Comment: A hematocrit value greater than 55% may lead to inaccurate results in coagulation testing. Patients having hematocrit values >55% require a special collection tube for coagulation studies. Please contact the laboratory at [phone] for redraw instructions.Performed By: #### PT, CUBLD, MG, LACTIC, BMP, HEPATIC, PTT, SCAN CBC, UFHEP, BNP ####[address] [place] [address] USAProthrombin Time INRon 33-93-3183OXR Coag (PPP) [Relative time]0.9 {INR}NormalThe [facility] Physician [facility]iComment on above: Result Comment: INR Therapeutic Range [...] heart valves: 3 - 4.5Performed By: #### PT, CUBLD, MG, LACTIC, BMP, HEPATIC, PTT, SCAN CBC, UFHEP, BNP ####[place] [address] USAPT Coag (PPP) [Time]10.6 sNormal9.0-12.9The [facility] Physician GroupComment on above:Result Comment: A hematocrit value greater than 55% may lead to inaccurate results in coagulation testing. Patients having hematocrit values >55% require a special collection tube for coagulation studies. Please contact the laboratory at [phone] for redraw instructions. Performed By: #### PT, CUBLD, MG, LACTIC, BMP, HEPATIC, PTT, SCAN CBC, UFHEP, BNP ####[address] Scan and CBCon 14-59-2260Ultmotdljytq Ql (Bld)SlightNormalThe [facility] Physician GroupComment on above:Performed By: #### PT, CUBLD, MG, LACTIC, BMP, HEPATIC, PTT, SCAN CBC, UFHEP, BNP ####[address] [place] [address] USABasophils (Bld) [#/Vol]0.0 10*3/uLNormal0.0-0.2The [facility] Physician [facility]iComment on above:Performed By: #### PT, CUBLD, MG, LACTIC, BMP, HEPATIC, PTT, SCAN CBC, UFHEP, BNP ####[address] [place] [address] USABasophils/100 WBC (Bld)0.2 %Normal.The [facility] Physician GroupComment on above:Performed By: #### PT, CUBLD, MG, LACTIC, BMP, HEPATIC, PTT, SCAN CBC, UFHEP, BNP ####[place] [address] USAEosinophils (Bld) [#/Vol]0.0 10*3/uL Normal0.0-0.45The [facility] Physician GroupComment on above:Performed By: #### PT, CUBLD, MG, LACTIC, BMP, HEPATIC, PTT, SCAN CBC, UFHEP, BNP ####[place] [address] USAEosinophils/100 WBC (Bld)0.1 %Normal.The [facility] Physician GroupComment on above:Performed By: #### PT, CUBLD, MG, LACTIC, BMP, HEPATIC, PTT, SCAN CBC, UFHEP, BNP ####[place] [address] [place] Erythrocyte distribution width (RBC) [Ratio]15.6 %High12.0-14.8The [facility] Physician GroupComment on above:Performed By: #### PT, CUBLD, MG, LACTIC, BMP, HEPATIC, PTT, SCAN CBC, UFHEP, BNP ####[place] [address] USAHematocrit (Bld) [Volume fraction]43.4 %Normal 38.8-50.0The [facility] Physician [facility]iComment on above:Performed By: #### PT, CUBLD, MG, LACTIC, BMP, HEPATIC, PTT, SCAN CBC, UFHEP, BNP ####[place] [address] USAHemoglobin (Bld) [Mass/Vol]14.1 g/mIDntpto26.0-17.0The [facility] Physician GroupComment on above: Performed By: #### PT, CUBLD, MG, LACTIC, BMP, HEPATIC, PTT, SCAN CBC, UFHEP, BNP ####[place] [address] [place] Lymphocytes (Bld) [#/Vol]0.3 10*3/uLLow1.00-4.8The [facility]ician Group Comment on above:Performed By: #### PT, CUBLD, MG, LACTIC, BMP, HEPATIC, PTT, SCAN CBC, UFHEP, BNP ####[place] [address] USALymphocytes/100 WBC (Bld)8.0 %Normal.The [facility] Physician GroupComment on above:Performed By: #### PT, CUBLD, MG, LACTIC, BMP, HEPATIC, PTT, SCAN CBC, UFHEP, BNP ####[address] (RBC) [Entitic mass]30.7 wfUvcsnz74.5-35.2The [facility] Physician GroupComment on above:Performed By: #### PT, CUBLD, MG, LACTIC, BMP, HEPATIC, PTT, SCAN CBC, UFHEP, BNP ####[address] (RBC) [Entitic vol]94.3 fLNormal 83.5-101The [facility] Physician GroupComment on above:Performed By: #### PT, CUBLD, MG, LACTIC, BMP, HEPATIC, PTT, SCAN CBC, UFHEP, BNP ####[address] StreetMean Corpuscular HGB Conc 32.5 g/aYTvevmb40.5-35.6The [facility] Physician GroupComment on above:Performed By: #### PT, CUBLD, MG, LACTIC, BMP, HEPATIC, PTT, SCAN CBC, UFHEP, BNP ####[address] MicrocytosisSlightNormalThe [facility] Physician GroupComment on above:Performed By: #### PT, CUBLD, MG, LACTIC, BMP, HEPATIC, PTT, SCAN CBC, UFHEP, BNP ####[address] Monocytes (Bld) [#/Vol]0.3 10*3/uLNormal0.0-0.8The [facility] Physician Group Comment on above:Performed By: #### PT, CUBLD, MG, LACTIC, BMP, HEPATIC, PTT, SCAN CBC, UFHEP, BNP ####[address]Monocytes/100 WBC (Bld)7.4 %Normal.The [facility] Physician GroupComment on above:Performed By: #### PT, CUBLD, MG, LACTIC, BMP, HEPATIC, PTT, SCAN CBC, UFHEP, BNP ####[place] [address] USANeutrophils (Bld) [#/Vol]3.5 10*3/uLNormal1.8-7.7The [facility] Physician GroupComment on above:Performed By: #### PT, CUBLD, MG, LACTIC, BMP, HEPATIC, PTT, SCAN CBC, UFHEP, BNP ####[place] [address] USANeutrophils/100 WBC (Bld)84.3 %Normal. The [facility] Physician GroupComment on above:Performed By: #### PT, CUBLD, MG, LACTIC, BMP, HEPATIC, PTT, SCAN CBC, UFHEP, BNP ####[place] [address] USANRBC%0.6 /100{WBC}High0-0.5The [facility] Physician GroupComment on above:Performed By: #### PT, CUBLD, MG, LACTIC, BMP, HEPATIC, PTT, SCAN CBC, UFHEP, BNP ####[place] [address] USAPlatelet EstimateNormalNormalNormH[facility] Physician GroupComment on above:Performed By: #### PT, CUBLD, MG, LACTIC, BMP, HEPATIC, PTT, SCAN CBC, UFHEP, BNP ####[place] [address] USAPlatelet mean volume (Bld) [Entitic vol]7.6 fLNormal6.6-10.1The [facility] Physician GroupComment on above:Performed By: #### PT, CUBLD, MG, LACTIC, BMP, HEPATIC, PTT, SCAN CBC, UFHEP, BNP ####[place] [address] [place] Platelet MorphologyNormalNormalNormHCA [facility] Physician GroupComment on above:Result Comment: PERFORMED BY:[address] [place], [place] [phone] MEDICAL DIRECTORCELESTE GERMAN M.D.Performed By: #### PT, CUBLD, MG, LACTIC, BMP, HEPATIC, PTT, SCAN CBC, UFHEP, BNP ####[place] [address] USAPlatelets (Bld) [#/Vol]210 10*3/kKJzzwsc479-860Fyc [facility] Physician Group Comment on above:Performed By: #### PT, CUBLD, MG, LACTIC, BMP, HEPATIC, PTT, SCAN CBC, UFHEP, BNP ####[place] [address] USAPolychromasiaSlightNormalThe [facility] Physician GroupComment on above:Performed By: #### PT, CUBLD, MG, LACTIC, BMP, HEPATIC, PTT, SCAN CBC, UFHEP, BNP ####[place] [address] USARBC (Bld) [#/Vol]4.60 10*6/uLNormal3.90-5.60The [facility] Physician GroupComment on above:Performed By: #### PT, CUBLD, MG, LACTIC, BMP, HEPATIC, PTT, SCAN CBC, UFHEP, BNP ####[place] [address] USAWBC (Bld) [#/Vol]4.2 10*3/uLNormal 4.1-10.5[facility] Physician GroupComment on above:Performed By: #### PT, CUBLD, MG, LACTIC, BMP, HEPATIC, PTT, SCAN CBC, UFHEP, BNP ####[place] [address] USAWhite Blood Count4.2 [CFU]/mLNormal4.1-10.5[facility] Physician GroupComment on above:Performed By: #### PT, CUBLD, MG, LACTIC, BMP, HEPATIC, PTT, SCAN CBC, UFHEP, BNP ####[facility] [place] [address] USAThyroid Stimulating Hormoneon 36-72-5628ACG Qn30.17 m[IU]/LHigh0.45-5.33[facility] Physician GroupComment on above:Result Comment: PERFORMED BY:[address] [place], [place] [phone] MEDICAL ELÍAS GERMAN M.D.Performed By: #### T4F, TSH3, T4T ####[address] [place] [address] USAThyroxine (T4) Total on 31-69-1069U5 [Mass/Vol]1.43 ug/dLLow5.39-11.82[facility] Physician Group Comment on above:Performed By: #### T4F, TSH3, T4T ####[address] [place] [address] USAToxassure, Urineon 07-31-2025 Toxassure, Urine SummaryFINALNormal.[facility] Physician GroupComment on above:Result Comment: TOXASSURE [...] clinical consultation, please call . Performed at: [employer] [address] [place] [id number] [employer] Clerk: Lesia Balderas, Phone: [phone] BY:[facility] [place], [place] [phone] MEDICAL DIRECTORCELESTE GERMAN M.D.Performed By: #### TOXASSURE ####[facility] ,Troponin I High Sensitivityon 16-65-2002Bgndfugn I High Zflznzsiuju7992Jii scale high0-20[facility] Physician [facility] BiloxiComment on above: Result Comment: Critical Result : Called to and read back by: IDANIA OCHOA at: 07/31/2025 21:39:42 by:MALIKA The Troponin units of report have been changed to meet the Chest Pain Accreditation requirement, element EC5.M1l2. Troponin units are changed from pg/ml to ng/L. Also, the decimal is removed and results are in whole numbers.PERFORMED BY:[phone] MEDICAL DIRECTORCELESTE GERMAN M.D.Performed By: #### CK, HS TROP ####[address] [address] USAUrine Cultureon 29-02-9536Pbhrxlza identified Cx Nom (U)No Growth 2 Days PERFORMED BY: [place] [id number] PATHOLOGIST SAP PORTAL CONSULTANT CELESTE GERMAN M.D.NormalTallahatchie General HospitalComment on above: Performed By: #### CUU ####[address] [address] USABacteria identified Cx Nom (U)Urine Culture Results No Growth 2 Days PERFORMED BY: [place] [address] PATHOLOGIST SAP PORTAL CONSULTANT CELESTE GERMAN M.D.NormalTallahatchie General HospitalComment on above: Performed By: #### CUU ####[address] [address] USAUrine cultureOrdered By: Salty Luis on 07-31-2025 Bacteria identified Cx Nom (U)[facility] HospitalXR chest 1V portableon 29-60-7879II chest 1V portableJohnson Memorial Hospital and Home Arterial Blood Gason 57-40-5967ERS Base Excess0.2 mmol/LNormal-3.0-3.0The [facility]Lewistown HospitalComment on above:Performed By: #### ABG ####Point of Care testing,ABG Frac Inspired T6FtqilbOuj [place] Physician GroupComment on above:Performed By: #### ABG ####Point of Care testing,ABG Liter Evse5JFvbwdcAqv [facility] Physician GroupComment on above:Performed By: #### ABG ####Point of Care testing,ABG Oxygen Content9.8 mmol/LHigh6.6-9.7[facility] Physician GroupComment on above:Performed By: #### ABG ####Point of Care testing,ABG Oxygen Qovspvrjnr64.5 %Cpcapi59.0-100.0[facility] Physician GroupComment on above:Performed By: #### ABG ####Point of Care testing,ABG YJO069.3 mm[Hg]Normal 35.0-45.0[facility] Physician GroupComment on above:Performed By: #### ABG ####Point of Care testing,ABG PH7.57Baqigo0.35-7.45[facility]ician Group Comment on above:Performed By: #### ABG ####Point of Care testing,ABG PO287.8 mm[Hg]Tlrndc83.0-100.0[facility] Physician GroupComment on above:Performed By: #### ABG ####Point of Care testing,CO2 [Moles/Vol]26.3 mmol/WVhxbsz24.0-27.0 [facility] Physician GroupComment on above:Performed By: #### ABG ####Point of Care testing,HCO3 (Bld) [Moles/Vol]25.0 mmol/UCgauvr56.0-29.0[facility] Physician GroupComment on above:Performed By: #### ABG ####Point of Care testing,Oxygen DeviceNasal CannulaNormBrecksville VA / Crille Hospitale [facility] Physician GroupComment on above:Performed By: #### ABG ####Point of Care testing,Respiratory Critical NormalThe [facility] Physician GroupComment on above:Result Comment: Critical Value called on: 06/07/2025 at 13:57PERFORMED BY:[address] [place], [place] [phone] MEDICAL DIRECTORCELESTE GERMAN M.D.Performed By: #### ABG ####Point of Care testing, VBG Draw SiteRigAdventHealth for Women Physician GroupComment on above: Performed By: #### ABG ####Point of Care testing,Complete Blood Count Auto Diff on 69-72-2063Gdavnclnx (Bld) [#/Vol]0.0 10*3/uLNormal0.0-0.2[facility] Physician [facility] BiloxiComment on above:Result Comment: PERFORMED BY:[address]ETScarlettHERMITAGE, [place] [phone] MEDICAL DIRECTORCELESTE GERMAN M.D.Performed By: #### CMP, CBC ####[place] USABasophils/100 WBC (Bld)0.4 % Normal.[facility] Physician GroupComment on above:Performed By: #### CMP, CBC ####[place] [place] Eosinophils (Bld) [#/Vol]0.0 10*3/uLNormal0.0-0.45[facility] Physician [facility] Comment on above:Performed By: #### CMP, CBC ####[place] USAEosinophils/100 WBC (Bld)0.1 %Normal. [facility] Physician GroupComment on above:Performed By: #### CMP, CBC ####[place] [address] [place] Erythrocyte distribution width (RBC) [Ratio]15.5 %High12.0-14.8[facility] Physician GroupComment on above:Performed By: #### CMP, CBC ####[place] USAHematocrit (Bld) [Volume fraction]46.4 %Fogvzn65.8-50.0[facility] Physician GroupComment on above:Performed By: #### CMP, CBC ####[place] USAHemoglobin (Bld) [Mass/Vol]15.2 g/eGWhuksz63.0-17.0 [facility] Physician GroupComment on above:Performed By: #### CMP, CBC ####[place] [address] [place] Lymphocytes (Bld) [#/Vol]0.5 10*3/uLLow1.00-4.8[facility] Physician Group Comment on above:Performed By: #### CMP, CBC ####[place] [address] USALymphocytes/100 WBC (Bld)7.4 %Normal. [facility] Physician GroupComment on above:Performed By: #### CMP, CBC ####[place] [address] USAMCH (RBC) [Entitic mass]29.6 oiCnzffh11.5-35.2[facility] Physician GroupComment on above:Performed By: #### CMP, CBC ####[place] [address] USAMCV (RBC) [Entitic vol]90.3 nLCvnryq41.5-101 [facility] Physician GroupComment on above:Performed By: #### CMP, CBC ####[place] [address] USAMean Corpuscular HGB Conc32.7 g/qVGghsjb91.5-35.6[facility] Physician GroupComment on above:Performed By: #### CMP, CBC ####[place] [address] USAMonocytes (Bld) [#/Vol]0.2 10*3/uLNormal 0.0-0.8[facility] Physician GroupComment on above:Performed By: #### CMP, CBC ####[place] [address] [place] Monocytes/100 WBC (Bld)3.3 %Normal.[facility] Physician GroupComment on above:Performed By: #### CMP, CBC ####[address] [address] USANeutrophils (Bld) [#/Vol]5.8 10*3/uLNormal1.8-7.7[facility] Physician GroupComment on above:Performed By: #### CMP, CBC ####[address] [address] [place] Neutrophils/100 WBC (Bld)88.8 %Normal.[facility] Physician GroupComment on above:Performed By: #### CMP, CBC ####[address] [address] USANRBC%0.1 /100{WBC}Normal0-0.5[facility] Physician GroupComment on above:Performed By: #### CMP, CBC ####[address] [address] USAPlatelet mean volume (Bld) [Entitic vol]6.7 fLNormal6.6-10.1[facility] Physician GroupComment on above: Performed By: #### CMP, CBC ####[address] [address] USAPlatelets (Bld) [#/Vol]225 10*3/wAMwyfgf001-188Vdd [facility] Physician GroupComment on above:Performed By: #### CMP, CBC ####[address] [address] USARBC (Bld) [#/Vol]5.14 10*6/uLNormal3.90-5.60[facility] Physician GroupComment on above:Performed By: #### CMP, CBC ####[address] [address] USAWBC (Bld) [#/Vol]6.6 10*3/uLNormal4.1-10.5[facility] Physician GroupComment on above:Performed By: #### CMP, CBC ####[address] [address] USAWhite Blood Count6.6 [CFU]/mLNormal4.1-10.5[facility] Physician GroupComment on above:Performed By: #### CMP, CBC ####[address] [address] USAComprehensive Metabolic Panelon 60-42-4369Epevbtm [Mass/Vol]4.3 g/dLNormal3.5-5.7[facility] Physician GroupComment on above: Performed By: #### CMP, CBC ####[place] [address] USAAlbumin/Globulin [Mass ratio]1.5 {ratio}NormalThe [facility] Physician GroupComment on above:Performed By: #### CMP, CBC ####[place] [address] USAALP [Catalytic activity/Vol]97 U/UMhktbx09-015Che [facility] Physician GroupComment on above:Performed By: #### CMP, CBC ####[place] [address] USAALT [Catalytic activity/Vol]22 U/LNormal7-52 [facility] Physician GroupComment on above:Performed By: #### CMP, CBC ####[place] [address] USAAnion gap [Moles/Vol]9.2 mmol/LNormal6.0-15.0[facility] Physician GroupComment on above:Performed By: #### CMP, CBC ####[place] [address] USAAST [Catalytic activity/Vol]57 U/DJeqx33-69Kyw [facility] Physician GroupComment on above:Performed By: #### CMP, CBC ####[address] [address] [place] Bilirubin [Mass/Vol]0.8 mg/dLNormal0.3-1.0[facility] Physician GroupComment on above:Performed By: #### CMP, CBC ####[place] [address] USACalcium [Mass/Vol]9.3 mg/dLNormal8.6-10.3[facility] Physician GroupComment on above:Performed By: #### CMP, CBC ####[address] [address] [place] Chloride [Moles/Vol]98 mmol/SGkhkty18-461Zns [facility] Physician GroupComment on above:Performed By: #### CMP, CBC ####[address] [address] USACO2 [Moles/Vol]30.8 mmol/ZTgolho20.0-31.0[facility] Physician GroupComment on above:Performed By: #### CMP, CBC ####[address] [address] [place] Creatinine [Mass/Vol]1.39 mg/dLHigh0.70-1.30[facility] Physician GroupComment on above:Performed By: #### CMP, CBC ####[address] [address] USACreatinine Clr Calc Sqtyrvsz99.68NoTransylvania Regional Hospital Physician GroupComment on above:Result Comment: PERFORMED BY:[address] [place], [place] [phone] MEDICAL DIRECTORCELESTE GERMAN M.D.Performed By: #### CMP, CBC ####[address] [address] USAGFR/1.73 sq M.predicted MDRD (S/P/Bld) [Vol rate/Area]55.911 mL/min/{1.73_m2}NormalThe [facility] Physician GroupComment on above:Performed By: #### CMP, CBC ####[address] [address] [place] Globulin (S) [Mass/Vol]2.9 g/dLAdventHealth Deltona ER Physician [facility] BiloxiComment on above:Performed By: #### CMP, CBC ####[address] [address] USAGlucose [Mass/Vol]189 mg/iELrng76-286Yix [facility] Physician GroupComment on above:Result Comment: Random Glucose Reference Range is dependent on time and content of last meal. Glucose of more than 200 mg/dL in a nonstressed, ambulatory subject supports the diagnosis of Diabetes Mellitus. ADA recommended reference rangePerformed By: #### CMP, CBC ####[place] [address] USAPotassium [Moles/Vol] 4.0 mmol/LNormal3.5-5.1[facility] Physician GroupComment on above:Performed By: #### CMP, CBC ####[place] [address] USAProtein [Mass/Vol]7.2 g/dLNormal6.4-8.9[facility] Physician Group Comment on above:Performed By: #### CMP, CBC ####[place] [address] USASodium [Moles/Vol]134 mmol/HPsu121-965 [facility] Physician GroupComment on above:Performed By: #### CMP, CBC ####[place] [address] USAUrea nitrogen [Mass/Vol]17 mg/dLNormal7-25The [facility] Physician GroupComment on above:Performed By: #### CMP, CBC ####[address] [address] USADrug Screen,Urineon 99-92-0600Ynbvdobrgxg Screen,UrinePositiveNormalNegativeThe [facility] Physician GroupComment on above: Performed By: #### URDS ####[address] [address] USABarbiturate Screen,UrineNegativeNormalNegativeThe [facility] Physician GroupComment on above:Performed By: #### URDS ####[address] [address] USABenzodiazepines Screen,UrinePositiveNormalNegativeThe [facility] Physician GroupComment on above: Performed By: #### URDS ####[address] [address] USACannabinoid Screen,UrinePositiveNormalNegativeHca Florida [facility]cf [facility] Physician GroupComment on above:Result Comment: These are unconfirmed results and should not be used for legal purposes. Drug Cut-Off Concentration: AMPH 1000 ng/mL BHASKAR 200 ng/mL RIKKI 200 ng/mL COCM 300 ng/mL OP 300 ng/mL PCP 25 ng/mL THC 20 ng/mLPERFORMED BY:[address] [address] [address] [place], [place] [phone] MEDICAL DIRECTORCELESTE GERMAN M.D.Performed By: #### URDS ####[address] [address] USACocaine Screen,UrineNegativeNormalNegativeHca Florida [facility] Physician GroupComment on above:Performed By: #### URDS ####[address] [address] USAOpiate Screen,Urine PositiveNormalNegativeH[facility] Physician [facility]oxiComment on above:Performed By: #### URDS ####[address] [address] USAPhencyclidine Screen,UrineNegativeNormalNegativeHca Florida [facility] Physician GroupComment on above:Performed By: #### URDS ####[address] [address] USAECG 12 lead ECGon 51-48-6584CAP 12 lead ECGNormHCA Florida [facility] Physician GroupECG 12 lead ECGNoOur Lady of Mercy HospitalGlucose Poct Glucometerson 90-25-0288Qzqpmdt7Bql0: Cleaned Meter NormalTallahatchie General HospitalComment on above:Result Comment: PERFORMED BY:[address] [place], [place] [phone] MEDICAL ELÍAS GERMAN M.D.Performed By: #### GLULS ####Point of Care testing,Glucose [Mass/Vol]91 mg/dLNoTransylvania Regional Hospital Physician [facility] BiloxiComment on above:Result Comment: Random Glucose Reference Range is dependent on time and content of last meal. Glucose of more than 200 mg/dL in a nonstressed, ambulatory subject supports the diagnosis of Diabetes Mellitus. Performed By: #### GLULS ####Point of Care testing,Troponin I High Sensitivityon 74-38-4555Pndlwjla I High Svmebplwkwq65639Cjt scale [address] Physician GroupComment on above:Result Comment: Critical Result I_TnIHS_d:[id number] Called to and read back by: JANY SANDOVAL at: 06/07/2025 17:28:45 by:[id number] The Troponin units of report have been changed to meet the Chest Pain Accreditation requirement, element EC5.M1l2. Troponin units are changed from pg/ml to ng/L. Also, the decimal is removed and results are in whole numbers.PERFORMED BY:[address] [place], [place] [phone] MEDICAL ELÍAS GERMAN M.D.Performed By: #### HS TROP ####[address] [address] USATroponin I High Bsudmjhfzlk72269Rwd [address] Physician [facility] BiloxiComment on above:Order Comment: per rn malyssa wait till they sedate ptResult Comment: Critical Result I_TnIHS_d:26006 Called to and read back by: JANY SANDOVAL at: 06/07/2025 15:32:31 by:[id number] The Troponin units of report have been changed to meet the Chest Pain Accreditation requirement, element EC5.M1l2. Troponin units are changed from pg/ml to ng/L. Also, the deci mal is removed and results are in whole numbers.PERFORMED BY:[address] [place]AGAMCC[place], [place] [phone] MEDICAL ELÍAS GERMAN M.D.Performed By: #### HS TROP ####[address] [address] USATroponin I High Sensitivity 6616Off scale [address] Physician [facility] BiloxiComment on above:Order Comment: rn will call when pt is back in roomResult Comment: Critical Result : Called to and read back by: JANY SANDOVAL at: 06/07/2025 11:59:11 by:[email or web address] The Troponin units of report have been changed to meet the Chest Pain Accreditation requirement, element EC5.M1l2. Troponin units are changed from pg/ml to ng/L. Also, the decimal is removed andresults are in whole numbers.PERFORMED BY:[address] [place], [place] [phone] MEDICAL DIRECTORCELESTE GERMAN M.D.Performed By: #### HS TROP ####[address] [address] USABasic Metabolic Panelon 53-17-6401Bryfp gap [Moles/Vol]13.2 mmol/L Normal6.0-15.0[facility] Physician GroupComment on above:Performed By: #### BMP, MG, CBCNO ####[address] [address] USACalcium [Mass/Vol]9.7 mg/dLNormal8.6-10.3The [facility] Physician Group Comment on above:Performed By: #### BMP, MG, CBCNO ####[address] [address] USAChloride [Moles/Vol]105 mmol/L Tylbpw77-463Ewz [facility] Physician GroupComment on above:Performed By: #### BMP, MG, CBCNO ####[address] [address] USACO2 [Moles/Vol]25.2 mmol/AQiafho51.0-31.0The [facility] Physician Group Comment on above:Performed By: #### BMP, MG, CBCNO ####[address] [address] USACreatinine [Mass/Vol]0.81 mg/dLNormal0.70-1.30[facility] Physician GroupComment on above:Performed By: #### BMP, MG, CBCNO ####[address] [address] USACreatinine Clr Calc Tlpvzidw70.46NormalThe [facility] Physician GroupComment on above:Performed By: #### BMP, MG, CBCNO ####[address] [place] [address] USAGFR/1.73 sq M.predicted MDRD (S/P/Bld) [Vol rate/Area]mL/min/{1.73_m2}NormalThe [facility] Physician Group Comment on above:Performed By: #### BMP, MG, CBCNO ####[place] [address] USAGlucose [Mass/Vol]103 mg/dL Tyoz09-587Uvb [facility] Physician GroupComment on above:Result Comment: Random Glucose Reference Range is dependent on time and content of last meal. Glucose of more than 200 mg/dL in a nonstressed, ambulatory subject supports the diagnosis of Diabetes Mellitus. ADA recommended reference rangePerformed By: #### BMP, MG, CBCNO ####[address] [place] [address] USAPotassium [Moles/Vol]3.4 mmol/LLow3.5-5.1[facility] Physician GroupComment on above:Performed By: #### BMP, MG, CBCNO ####[place] [address] USASodium [Moles/Vol]140 mmol/L Xjeink963-130Hrg [facility] Physician GroupComment on above:Performed By: #### BMP, MG, CBCNO ####[address] [address] USAUrea nitrogen [Mass/Vol]19 mg/dLNormal7-25The [facility] Physician Group Comment on above:Performed By: #### BMP, MG, CBCNO ####[address] [address] USACalcium [Mass/volume] in Serum or PlasmaOrdered By: Yamila Donald on 59-35-5785Rgnbvax [Mass/Vol]Calcium [Mass/volume] in Serum or Plasma8.6-10.3FBucyrus Community HospitalCarbon dioxide, total [Moles/volume] in Serum or PlasmaOrdered By: Yamila Donald on 39-70-6589VQ0 [Moles/Vol]Carbon dioxide, total [Moles/volume] in Serum or Plasma 21.0-31.0[facility]. [facility] HospitalChloride [Moles/volume] in Serum or PlasmaOrdered By: Yamila Donald on 15-28-4403Ftjqsgsj [Moles/Vol]Chloride [Moles/volume] in Serum or Cukdrk02-196NacjxxzbnSt. Elizabeth Hospital Creatinine [Mass/volume] in Serum or PlasmaOrdered By: Yamila Timjohnny on 46-59-0368Zsffckuooy [Mass/Vol]Creatinine [Mass/volume] in Serum or Plasma 0.70-1.30[facility]. [facility] HospitalErythrocyte distribution width Auto (RBC) [Ratio]Ordered By: Yamila Timjohnny on 59-38-7327Rykvulapakx distribution width (RBC) [Ratio]Erythrocyte distribution width [Ratio] by Automated count 12.0-14.8[facility]. Elizabeth HospitalGlucose [Mass/volume] in Serum or PlasmaOrdered By: Yamila Donald on 60-23-8469Idtocjl [Mass/Vol]Glucose [Mass/volume] in Serum or VgblqxJxtv16-960BklhenjohSt. Elizabeth Hospital Comment on above:ADA recommended reference rangeRandom Glucose Reference Range is dependent on time and content of last meal. Glucose of more than 200 mg/dL in a nonstressed, ambulatory subject supports the diagnosisof Diabetes Mellitus. Hematocrit Auto (Bld) [Volume fraction]Ordered By: Yamila Donald on 11-19-2024 Hematocrit (Bld) [Volume fraction]Hematocrit [Volume Fraction] of Blood by Automated count38.8-50.0St. Elizabeth HospitalHemoglobin [Mass/volume] in BloodOrdered By: Yamila Donald on 04-73-3515Sgraffneii (Bld) [Mass/Vol]Hemoglobin [Mass/volume] in Blood13.0-17.0St. Elizabeth HospitalHemogram CBC Without Diffon 35-58-8475Uirdkihvash distribution width (RBC) [Ratio]13.7 %Slktmx65.0-14.8The [facility] Physician GroupComment on above: Performed By: #### BMP, MG, CBCNO ####[facility] [address] [place] [address] USAHematocrit (Bld) [Volume fraction]45.8 %Normal 38.8-50.0The [facility] Physician GroupComment on above:Performed By: #### BMP, MG, CBCNO ####[place] [address] USAHemoglobin (Bld) [Mass/Vol]15.4 g/aDAwaynn08.0-17.0The [facility] Physician GroupComment on above:Performed By: #### BMP, MG, CBCNO ####[place] [address] [facility] MED[facility] CENTERMCH (RBC) [Entitic mass]29.0 qaCjgrdq79.5-35.2The [facility] Physician GroupComment on above:Performed By: #### BMP, MG, CBCNO ####[address] StreetMCV (RBC) [Entitic vol]86.4 fAWtretf95.5-101The [facility] Physician GroupComment on above:Performed By: #### BMP, MG, CBCNO ####[place] [address] USAMean Corpuscular HGB Conc33.5 g/kYZrujta76.5-35.6The [facility] Physician GroupComment on above:Performed By: #### BMP, MG, CBCNO ####[place] [address] USAPlatelet mean volume (Bld) [Entitic vol]7.9 fLNormal6.6-10.1The [facility] Physician GroupComment on above:Result Comment: PERFORMED BY:[address] [place], [place] [phone] MEDICAL DIRECTORVÍCTOR LUCERO M.D.Performed By: #### BMP, MG, CBCNO ####[place] [address] [place] Platelets (Bld) [#/Vol]203 10*3/vYEmmfgl583-832Ypc [facility] Physician Group Comment on above:Performed By: #### BMP, MG, CBCNO ####[facility] [address] [place] [address] USARBC (Bld) [#/Vol]5.31 10*6/uL Normal3.90-5.60The [facility] Physician GroupComment on above:Performed By: #### BMP, MG, CBCNO ####[facility] [address] [place] [address] USAWBC (Bld) [#/Vol]8.2 10*3/uLNormal4.1-10.5The [facility] Physician [facility] Comment on above:Performed By: #### BMP, MG, CBCNO ####[facility] [address] [place] [address] USALeukocytes [#/volume] corrected for nucleated erythrocytes in Blood by Automated counOrdered By: Yamila Donald on 73-27-9450BLI corrected for nucl RBC Auto (Bld) [#/Vol] Leukocytes [#/volume] corrected for nucleated erythrocytes in Blood by Automated coun4.1-10.5FDayton Osteopathic HospitalH Auto (RBC) [Entitic mass] Ordered By: Yamila Donald on 84-60-9269KEG (RBC) [Entitic mass]MCH [Entitic mass] by Automated count27.5-35.2FBucyrus Community HospitalMCHC Auto (RBC) [Mass/Vol]Ordered By: Yamila Donald on 94-42-9418ZRWN (RBC) [Mass/Vol] MCHC [Mass/volume] by Automated count32.5-35.6FBucyrus Community Hospital MCV Auto (RBC) [Entitic vol]Ordered By: Yamila Donald on 26-02-0024BWO (RBC) [Entitic vol]MCV [Entitic volume] by Automated count83.5-101St. Elizabeth HospitalMR head/brain wo conon 18-24-3943NN head/brain wo conNormalThe [facility] Physician GroupMagnesiumon 99-85-9394Geaawftwv [Mass/Vol]1.7 mg/dLLow 1.9-2.7The [facility] Physician GroupComment on above:Result Comment: PERFORMED BY:[facility] [place], [place] [phone] MEDICAL DIRECTORVÍCTOR LUCERO M.D.Performed By: #### BMP, MG, CBCNO ####[facility] [address] [place] [address] USAMagnesium [Mass/volume] in Serum or PlasmaOrdered By: aYmila Donald on 97-98-5990Glulbqbnd [Mass/Vol]Magnesium [Mass/volume] in Serum or PlasmaLow 1.9-2.7FBucyrus Community HospitalMagnetic resonance imaging reportOrdered By: Regino Mckinley on 91-49-5571Sbnct reportOHIOHEALTH Main [address] [place] [address] MRI Report Signed Patient: Aaron Olivarez MR#: [id number] : 1960 Acct:[id number] Age/Sex: 64 / M ADM Date: 5 Loc: Room: [address] [place] [address] Type: ADM IN Attending Dr: Yamila Donald [...] Regino Mckinley M.D.11/19/2024 4:50 PM Dictation Location: [place] [address] Transcribed By: YNES 11/19/24 165 Dictated By: Regino Mckinley MD 11/19/24 1644 Signed By: 11/19/241649 [facility] Work Phone: no Panel InformationOrdered By: Yamila Donald on 27-13-4173Lfinlhuvb GFR (CKD-EPI)> 60.0 mL/MinSt. Elizabeth Hospital Pharmacy Creatinine Clearance (Chem98.46[facility] Platelet mean volume Auto (Bld) [Entitic vol]Ordered By: Yamila Donald on 95-45-3010Rytxwlpy mean volume (Bld) [Entitic vol]Platelet mean volume [Entitic volume] in Blood by Automated count6.6-10.1FBucyrus Community Hospital Platelets Auto (Bld) [#/Vol]Ordered By: Yamila Donald on 54-07-0757Bpzwvgbvx (Bld) [#/Vol]Platelets [#/volume] in Blood by Automated -410GocyruiaeSt. Elizabeth HospitalPotassium [Moles/volume] in Serum or PlasmaOrdered By: Yamila Donald on 45-04-3751Nutrlfbeo [Moles/Vol]Potassium [Moles/volume] in Serum or PlasmaLow3.5-5.1FBucyrus Community HospitalRBC Auto (Bld) [#/Vol] Ordered By: Yamila Donald on 09-89-0395JSD (Bld) [#/Vol]Erythrocytes [#/volume] in Blood by Automated count3.90-5.60W[facility]sworth-Rittman Hospitalerum or plasma anion gap determinationOrdered By: Yamila Donald on 48-43-7200Zhkmz gap [Moles/Vol]Serum or plasma anion gap determination6.0-15.0W[facility]sworth-Rittman Hospitalodium [Moles/volume] in Serum or PlasmaOrdered By: Yamila Donald on 40-30-8036Bzlfne [Moles/Vol]Sodium [Moles/volume] in Serum or Bjahhq839-903 [facility] HospitalUrea nitrogen [Mass/volume] in Serum or Plasma Ordered By: Yamila Donald on 05-86-2140Tywo nitrogen [Mass/Vol]Urea nitrogen [Mass/volume] in Serum or Plasma7-25St. [facility] HospitalAlanine aminotransferase [Enzymatic activity/volume] in Serum or PlasmaOrdered By: Chaz Frey on 71-85-3950FQY [Catalytic activity/Vol]Alanine aminotransferase [Enzymatic activity/volume] in Serum or Plasma7-52[facility] HospitalAlbumin [Mass/volume] in Serum or Plasma by Bromocresol green (BCG) dye binding methoOrdered By: Chaz Frey on 18-75-1994Aynegwo BCG dye [Mass/Vol] Albumin [Mass/volume] in Serum or Plasma by Bromocresol green (BCG) dye binding metho3.5-5.7FBucyrus Community HospitalAlkaline phosphatase [Enzymatic activity/volume] in Serum or PlasmaOrdered By: Chaz Frey on 58-73-5951WCY [Catalytic activity/Vol]Alkaline phosphatase [Enzymatic activity/volume] in Serum or Uptlze64-765GlyqiclkiSt. Elizabeth HospitalAspartate aminotransferase [Enzymatic activity/volume] in Serum or PlasmaOrdered By: Chaz Frey on 76-66-3822NSG [Catalytic activity/Vol]Aspartate aminotransferase [Enzymatic activity/volume] in Serum or Lkhacd99-38JqqsrevxgSt. Elizabeth Hospital Basophils Auto (Bld) [#/Vol]Ordered By: Chaz Frey on 27-13-5773Jilejnttp (Bld) [#/Vol]Automated basophil count0.0-0.2FBucyrus Community Hospital Basophils/100 WBC Auto (Bld)Ordered By: Chaz Frey on 03-23-1325Nkyyvrqgt/100 WBC (Bld)Automated basophil %.[facility] HospitalBilirubin.total [Mass/volume] in Serum or PlasmaOrdered By: Chaz Frey on 42-97-5035Advdqznzz [Mass/Vol]Bilirubin.total [Mass/volume] in Serum or PlasmaHigh0.3-1.0St[facility] HospitalCalcium [Mass/volume] in Serum or PlasmaOrdered By: Chaz Frey on 40-01-4113Jmgawvt [Mass/Vol]Calcium [Mass/volume] in Serum or Plasma 8.6-10.3FBucyrus Community HospitalCarbon dioxide, total [Moles/volume] in Serum or PlasmaOrdered By: Chaz Frey on 37-25-4800QF9 [Moles/Vol]Carbon dioxide, total [Moles/volume] in Serum or WtxqrcHmcc73.0-31.0St[facility] HospitalChloride [Moles/volume] in Serum or PlasmaOrdered By: Chaz Frey on 18-52-9657Esgainwn [Moles/Vol]Chloride [Moles/volume] in Serum or Blecdr10-996JuimachrnSt. Elizabeth HospitalComplete Blood Count Auto Diffon 57-74-0600Hlruonwby (Bld) [#/Vol]0.0 10*3/uLNormal0.0-0.2[facility] Physician GroupComment on above:Result Comment: PERFORMED BY:[address] [place], [place] [phone] MEDICAL DIRECTORVÍCTOR LUCERO M.D.Performed By: #### HS TROP, PRL, CMP, CBC ####[address] [address] [place] Basophils/100 WBC (Bld)0.6 %Normal.[facility] Physician GroupComment on above:Performed By: #### HS TROP, PRL, CMP, CBC ####[address] [address] USAEosinophils (Bld) [#/Vol]0.0 10*3/uL Normal0.0-0.45The [facility] Physician GroupComment on above:Performed By: #### HS TROP, PRL, CMP, CBC ####[address] [address] USAEosinophils/100 WBC (Bld)0.1 %Normal.[facility] Physician GroupComment on above:Performed By: #### HS TROP, PRL, CMP, CBC ####[address] Erythrocyte distribution width (RBC) [Ratio]13.3 %Rfqxra11.0-14.8The [facility] Physician GroupComment on above:Performed By: #### HS TROP, PRL, CMP, CBC ####[address] Hematocrit (Bld) [Volume fraction]43.0 %Lrtdds31.8-50.0The [facility] Physician GroupComment on above:Performed By: #### HS TROP, PRL, CMP, CBC ####[place] [address] USAHemoglobin (Bld) [Mass/Vol]14.6 g/oJGyeeip15.0-17.0[facility] Physician GroupComment on above: Performed By: #### HS TROP, PRL, CMP, CBC ####[place] [address] USALymphocytes (Bld) [#/Vol]1.4 10*3/uLNormal 1.00-4.8[facility] Physician GroupComment on above:Performed By: #### HS TROP, PRL, CMP, CBC ####[place] [address] USALymphocytes/100 WBC (Bld)20.9 %Normal.[facility] Comment on above:Performed By: #### HS TROP, PRL, CMP, CBC ####[place] [address] USAMCH (RBC) [Entitic mass]29.1 waRoabsz63.5-35.2[facility] Physician GroupComment on above: Performed By: #### HS TROP, PRL, CMP, CBC ####[place] [address] USAMCV (RBC) [Entitic vol]85.8 uRVxzzoc30.5-101 [facility] Physician GroupComment on above:Performed By: #### HS TROP, PRL, CMP, CBC ####[place] [address] USAMean Corpuscular HGB Conc33.9 g/wXDerpcx22.5-35.6The [facility] Physician GroupComment on above:Performed By: #### HS TROP, PRL, CMP, CBC ####[place] [address] USAMonocytes (Bld) [#/Vol]0.6 10*3/uLNormal0.0-0.8[facility] Physician GroupComment on above: Performed By: #### HS TROP, PRL, CMP, CBC ####[place] [address] USAMonocytes/100 WBC (Bld)8.5 %Normal.[facility] Physician GroupComment on above:Performed By: #### HS TROP, PRL, CMP, CBC ####[place] [address] [place] Neutrophils (Bld) [#/Vol]4.7 10*3/uLNormal1.8-7.7[facility] Comment on above:Performed By: #### HS TROP, PRL, CMP, CBC ####[place] [address] USANeutrophils/100 WBC (Bld)69.9 %Normal.[facility] Physician GroupComment on above:Performed By: #### HS TROP, PRL, CMP, CBC ####[place] [address] USANRBC%0.1 /100{WBC}Normal0-0.5The [facility] Physician GroupComment on above:Performed By: #### HS TROP, PRL, CMP, CBC ####[place] [address] USAPlatelet mean volume (Bld) [Entitic vol]7.6 fLNormal6.6-10.1The [facility] Physician GroupComment on above:Performed By: #### HS TROP, PRL, CMP, CBC ####[address] [address] USAPlatelets (Bld) [#/Vol]216 10*3/uL Xlddpc663-380Epr [facility] Physician GroupComment on above:Performed By: #### HS TROP, PRL, CMP, CBC ####[address] [address] USARBC (Bld) [#/Vol]5.01 10*6/uLNormal3.90-5.60[facility] Physician GroupComment on above:Performed By: #### HS TROP, PRL, CMP, CBC ####[address] [address] USAWBC (Bld) [#/Vol]6.7 10*3/uLNormal4.1-10.5[facility] Physician GroupComment on above:Performed By: #### HS TROP, PRL, CMP, CBC ####[address] [address] USAComprehensive Metabolic Panelon 82-48-5521Tdbybvv [Mass/Vol]3.9 g/dLNormal3.5-5.7[facility] Physician [facility] Comment on above:Performed By: #### HS TROP, PRL, CMP, CBC ####[address] [address] USAAlbumin/Globulin [Mass ratio]1.6 {ratio}NormalThe [facility] Physician GroupComment on above: Performed By: #### HS TROP, PRL, CMP, CBC ####[address] [address] USAALP [Catalytic activity/Vol]93 U/MNgfppr56-850 [facility] Physician GroupComment on above:Performed By: #### HS TROP, PRL, CMP, CBC ####[address] [address] USAALT [Catalytic activity/Vol]10 U/LNormal7-52[facility] Comment on above:Performed By: #### HS TROP, PRL, CMP, CBC ####[place] [address] USAAnion gap [Moles/Vol] 9.7 mmol/LNormal6.0-15.0[facility] Physician GroupComment on above:Performed By: #### HS TROP, PRL, CMP, CBC ####[place] [address] USAAST [Catalytic activity/Vol]16 U/ZKgptlr92-26Zhc [facility] Physician GroupComment on above:Performed By: #### HS TROP, PRL, CMP, CBC ####[place] [address] [place] Bilirubin [Mass/Vol]1.2 mg/dLHigh0.3-1.0[facility] Physician GroupComment on above:Performed By: #### HS TROP, PRL, CMP, CBC ####[address] [address] USACalcium [Mass/Vol]9.4 mg/dLNormal 8.6-10.3[facility] Physician GroupComment on above:Performed By: #### HS TROP, PRL, CMP, CBC ####[address] [address] USAChloride [Moles/Vol]105 mmol/VTwzyrb92-425Qrc [facility] Physician GroupComment on above:Performed By: #### HS TROP, PRL, CMP, CBC ####[address] [address] USACO2 [Moles/Vol]31.4 mmol/LHigh21.0-31.0[facility] Physician GroupComment on above:Performed By: #### HS TROP, PRL, CMP, CBC ####[address] [address] USACreatinine [Mass/Vol]1.10 mg/dLNormal0.70-1.30The [facility] Physician GroupComment on above:Performed By: #### HS TROP, PRL, CMP, CBC ####[address] [address] [place] Creatinine Clr Calc Tcjmhxiz01.51NormalThe [facility] Physician GroupComment on above:Performed By: #### HS TROP, PRL, CMP, CBC ####[place] [address] USAGFR/1.73 sq M.predicted MDRD (S/P/Bld) [Vol rate/Area]mL/min/{1.73_m2}NormalThe [facility] Physician GroupComment on above:Performed By: #### HS TROP, PRL, CMP, CBC ####[place] [address] USAGlobulin (S) [Mass/Vol]2.4 g/dLNormal The [facility] Physician GroupComment on above:Performed By: #### HS TROP, PRL, CMP, CBC ####[place] [address] USAGlucose [Mass/Vol]113 mg/uNKwao48-250Tim [facility] Physician GroupComment on above:Result Comment: Random Glucose Reference Range is dependent on time and content of last meal. Glucose of more than 200 mg/dL in a nonstressed, ambulatory subject supports the diagnosis of Diabetes Mellitus. ADA recommended reference rangePerformed By: #### HS TROP, PRL, CMP, CBC ####[place] [address] USAPotassium [Moles/Vol]4.1 mmol/LNormal3.5-5.1[facility] Physician GroupComment on above:Performed By: #### HS TROP, PRL, CMP, CBC ####[place] [address] USAProtein [Mass/Vol]6.3 g/dLLow6.4-8.9[facility] Physician GroupComment on above:Performed By: #### HS TROP, PRL, CMP, CBC ####[place] [address] USASodium [Moles/Vol]142 mmol/ZNjikki485-991Cpz [facility] Physician GroupComment on above: Performed By: #### HS TROP, PRL, CMP, CBC ####[place] [address] USAUrea nitrogen [Mass/Vol]22 mg/dLNormal7-25The [facility] Physician GroupComment on above:Performed By: #### HS TROP, PRL, CMP, CBC ####[facility] [address] [place] [address] [facility] Creatinine [Mass/volume] in Serum or PlasmaOrdered By: Chaz Frey on 49-18-1607Arhiubzqms [Mass/Vol]Creatinine [Mass/volume] in Serum or Plasma 0.70-1.30[facility] HospitalECH echo transthoracicon 88-74-5638PIZ echo transthoracicNormalThMinidoka Memorial Hospital Physician GroupEosinophils Auto (Bld) [#/Vol]Ordered By: Chaz Fery on 15-17-1329Watucsrkzhp (Bld) [#/Vol]Automated eosinophil count0.0-0.45[facility] HospitalEosinophils/100 WBC Auto (Bld)Ordered By: Chaz Palafox on 68-40-4561Pfgbznriarx/100 WBC (Bld) Automated eosinophil %.[facility] HospitalErythrocyte distribution width Auto (RBC) [Ratio]Ordered By: Chaz Frey on 26-04-5241Fogtmuorfjw distribution width (RBC) [Ratio]Erythrocyte distribution width [Ratio] by Automated count12.0-14.8[facility] HospitalGlobulin Calc (S) [Mass/Vol]Ordered By: Chaz Frey on 18-72-8975Wxtcvsti (S) [Mass/Vol]Serum globulin measurement by calculation (mass/volume)[facility] HospitalGlucose [Mass/volume] in Serum or PlasmaOrdered By: Chaz Frey on 80-90-8328Jqkcmrj [Mass/Vol]Glucose [Mass/volume] in Serum or RcaniuNhrf78-340 [facility] HospitalComment on above:ADA recommended reference rangeRandom Glucose Reference Range is dependent on time and content of last meal. Glucose of more than 200 mg/dL in a nonstressed, ambulatory subject supports the diagnosisof Diabetes Mellitus.Hematocrit Auto (Bld) [Volume fraction]Ordered By: Chaz Frey on 24-70-7532Dpwcgwyqpu (Bld) [Volume fraction]Hematocrit [Volume Fraction] of Blood by Automated count38.8-50.0 [facility] HospitalHemoglobin [Mass/volume] in BloodOrdered By: Chaz Frey on 30-97-5111Ymkylayjpo (Bld) [Mass/Vol]Hemoglobin [Mass/volume] in Blood13.0-17.0[facility] HospitalLeukocytes [#/volume] corrected for nucleated erythrocytes in Blood by Automated counOrdered By: Chaz Frey on 25-42-0813KFY corrected for nucl RBC Auto (Bld) [#/Vol]Leukocytes [#/volume] corrected for nucleated erythrocytes in Blood by Automated coun 4.1-10.5FBucyrus Community HospitalLymphocytes Auto (Bld) [#/Vol]Ordered By: Chaz Frey on 80-46-9079Uflmjdwdlhk (Bld) [#/Vol]Lymphocytes [#/volume] in Blood by Automated count1.00-4.8[facility] Lymphocytes/100 WBC Auto (Bld)Ordered By: Chaz Frey on 11-18-2024 Lymphocytes/100 WBC (Bld)Lymphocytes/100 leukocytes in Blood by Automated count. [facility] HospitalMCH Auto (RBC) [Entitic mass]Ordered By: Chaz Frey on 45-50-8786NNY (RBC) [Entitic mass]MCH [Entitic mass] by Automated count27.5-35.2FBucyrus Community HospitalMCHC Auto (RBC) [Mass/Vol]Ordered By: Chaz Frey on 60-72-6247HTYE (RBC) [Mass/Vol]MCHC [Mass/volume] by Automated count32.5-35.6FBucyrus Community HospitalMCV Auto (RBC) [Entitic vol]Ordered By: Chaz Frey on 06-91-2380TEM (RBC) [Entitic vol]MCV [Entitic volume] by Automated count83.5-101[facility] HospitalMonocytes Auto (Bld) [#/Vol]Ordered By: Chaz Frey on 21-64-9435Fxqvnwvue (Bld) [#/Vol] Automated blood monocyte count0.0-0.8[facility] Monocytes/100 WBC Auto (Bld)Ordered By: Chaz Frey on 99-16-7487Vbrxmsgfj/100 WBC (Bld)Automated monocyte %.[facility] HospitalNeutrophils Auto (Bld) [#/Vol]Ordered By: Chaz Frey on 07-88-6568Ewsxifepljm (Bld) [#/Vol] Neutrophils [#/volume] in Blood by Automated count1.8-7.7FBucyrus Community HospitalNeutrophils/100 WBC Auto (Bld)Ordered By: Chaz Frey on 37-61-6565Biyjgmtzuqa/100 WBC (Bld)Automated neutrophil %.[facility] HospitalNo Panel InformationOrdered By: Chaz Frey on 11-18-2024 Estimated GFR (CKD-EPI)> 60.0 mL/MinSt. Elizabeth HospitalPharmacy Creatinine Clearance (Chem72.51[facility] HospitalNucleated erythrocytes [Presence] in Blood by Automated countOrdered By: Chaz Frey on 40-56-7186Eoijtlhlh RBC Auto Ql (Bld)Nucleated erythrocytes [Presence] in Blood by Automated count0-0.5FBucyrus Community HospitalPlatelet mean volume Auto (Bld) [Entitic vol]Ordered By: Chaz Frey on 01-19-8627Bkgsyomp mean volume (Bld) [Entitic vol]Platelet mean volume [Entitic volume] in Blood by Automated count6.6-10.1FBucyrus Community HospitalPlatelets Auto (Bld) [#/Vol]Ordered By: Chaz Frey on 40-58-8067Kqnvwuhsu (Bld) [#/Vol]Platelets [#/volume] in Blood by Automated -864NothvkoubSt. [facility] Hospital Potassium [Moles/volume] in Serum or PlasmaOrdered By: Chaz Frey on 76-30-9411Qwzipwhqa [Moles/Vol]Potassium [Moles/volume] in Serum or Plasma 3.5-5.1FBucyrus Community HospitalProlactinon 11-01-7246Rrgcmdffy39.14 ng/mLHigh2.64-13.13[facility] Physician GroupComment on above:Result Comment: PERFORMED BY:[place] [address] [address] [place], [place] [phone] MEDICAL DIRECTORVÍCTOR LUCERO M.D. Performed By: #### HS TROP, PRL, CMP, CBC ####[facility] [place] [address] USAProlactin [Mass/volume] in Serum or Plasma Ordered By: Chaz Frey on 18-53-3317Gcovfsdkc [Mass/Vol]Prolactin [Mass/volume] in Serum or PlasmaHigh2.64-13.13[facility] Protein [Mass/volume] in Serum or PlasmaOrdered By: Chaz Frey on 11-18-2024 Protein [Mass/Vol]Protein [Mass/volume] in Serum or PlasmaLow6.4-8.9[facility] HospitalRBC Auto (Bld) [#/Vol]Ordered By: Chaz Frey on 34-16-0855KKQ (Bld) [#/Vol]Erythrocytes [#/volume] in Blood by Automated count 3.90-5.60W[facility]-Rittman Hospitalerum or plasma albumin/globulin mass ratioOrdered By: Chaz Frey on 04-43-9790Smztaaw/Globulin [Mass ratio]Serum or plasma albumin/globulin mass ratioWadsworth-Rittman Hospitalerum or plasma anion gap determinationOrdered By: Chaz Frey on 11-44-5266Dyqff gap [Moles/Vol]Serum or plasma anion gap determination6.0-15.0W[facility]-Rittman Hospitalodium [Moles/volume] in Serum or PlasmaOrdered By: Chaz Frey on 84-89-0728Tbical [Moles/Vol]Sodium [Moles/volume] in Serum or Mzvgdm584-913 [facility] HospitalTroponin I High Sensitivityon 11-18-2024 Troponin I High Rewubqupqdp11.6 pg/mLHigh0.0-20.0[facility] Comment on above:Result Comment: PERFORMED BY:[facility] [place], [place] [phone] MEDICAL DIRECTORVÍCTOR LUCERO M.D.Performed By: #### HS TROP, PRL, CMP, CBC ####[facility] [place] [address] [facility] Troponin I.cardiac [Mass/volume] in Serum or Plasma by Detection limit <= 0.01 ng/Ordered By: Chaz Frey on 76-81-7464Uagxvqcj I.cardiac DL <= 0.01 ng/mL [Mass/Vol]Troponin I.cardiac [Mass/volume] in Serum or Plasma by Detection limit <= 0.01 ng/High0.0-20.0[facility] HospitalUrea nitrogen [Mass/volume] in Serum or PlasmaOrdered By: Chaz Frey on 21-64-8873Rdta nitrogen [Mass/Vol]Urea nitrogen [Mass/volume] in Serum or Plasma7-25[facility] HospitalWBC Auto (Bld) [#/Vol]Ordered By: Chaz Frey on 48-05-7885LSB (Bld) [#/Vol]Leukocytes [#/volume] in Blood by Automated count 4.1-10.5FBucyrus Community HospitalAmphetamine Screen Ql (U)Ordered By: Jamin Sepulveda on 49-40-1253Akjhawrribzr Ql (U)Amphetamines screenHighNegative St. [facility] HospitalAmphetamine cutoff [Mass/volume] in Urine for Confirmatory methodOrdered By: Chaz Frey on 35-53-9867Ovnqcqourwg cutoff Confirm (U) [Mass/Vol]Amphetamine cutoff [Mass/volume] in Urine for Confirmatory grpxhyAoobwq=375TnsnmunngSt. Elizabeth HospitalAmphetamine+Methamphetamine [Presence] in UrineOrdered By: Chaz Frey on 11-17-2024 Amphetamine+Methamphetamine Ql (U)Amphetamine+Methamphetamine [Presence] in BnjjcJhijphtkAobvlv=1808Meuuxfvep Regional Medical CenterComment on above: Amphetamine test includes Amphetamine and Methamphetamine.Amphetamines [Presence] in UrineOrdered By: Chaz Frey on 30-78-6306Ivzezhabgked Ql (U) Amphetamines [Presence] in UrineAbnormal.[facility] Amphetamines [Presence] in Urine by Screen methodOrdered By: Chaz Frey on 04-71-9076Bqwpjkbnlapm Screen Ql (U)Amphetamines [Presence] in Urine by Screen hcynllJzmbfc=4429Kjmxpwojw Regional Medical CenterComment on above:Amphetamine test includes Amphetamine and Methamphetamine.Appearance of UrineOrdered By: Jamin Sepulveda on 25-46-6276Itdbudnhiq (U)Urine appearanceCleWilson Street HospitalBacteria [Presence] in Urine by AutomatedOrdered By: Jamin Sepulveda on 08-31-5962Ucbgixmw Auto Ql (U)Bacteria [Presence] in Urine by AutomatedNone SeenSt. Elizabeth HospitalBarbiturates [Presence] in Urine by Screen methodOrdered By: Jamin Sepulveda on 20-69-4968Tzejwowrpopf Screen Ql (U) Barbiturates [Presence] in Urine by Screen qzhtjmFnhuwq=020Ttenxrbt[address] [place], [place] [address]Benzodiazepines Screen Ql (U)Ordered By: Jamin Sepulveda on 97-96-3660Mjvjxysycivcldp Ql (U)Benzodiazepines [Presence] in Urine by Screen methodHighNegParkview Health Montpelier HospitalBenzodiazepines [Presence] in UrineOrdered By: Chaz Frey on 40-49-5755Txflvtnezfcdofh Ql (U) Benzodiazepines [Presence] in UvidvTkovpl=655Wreyxyqqn[address] [place] [address] Benzoylecgonine [Presence] in Urine by Screen methodOrdered By: Jamin Sepulveda on 55-10-2405Iruhzyehdpamuzz Screen Ql (U)Benzoylecgonine [Presence] in Urine by Screen methodNegParkview Health Montpelier HospitalBilirubin Test strip Ql (U)Ordered By: Jamin Sepulveda on 41-32-6615Smaxecipf Ql (U)Bilirubin.total [Presence] in Urine by Test stripNegParkview Health Montpelier HospitalCT angio neckon 91-99-1393YW angio neckNoTransylvania Regional Hospital Physician GroupCT head stroke alert wo conon 18-77-4248ZS head stroke alert wo conNNovant Health Franklin [facility] Physician GroupCannabinoids [Mass/volume] in Urine by Confirmatory methodOrdered By: Chaz Frey on 83-32-6939Vrnwbnppmdgb Confirm (U) [Mass/Vol]Cannabinoids [Mass/volume] in Urine by Confirmatory methodCutoff=50St. [facility] HospitalCannabinoids [Presence] in Urine by Screen methodOrdered By: Jamin Sepulveda on 79-90-0643Wwdaxjtgztmg Screen Ql (U)Cannabinoids [Presence] in Urine by Screen methodCutoff=50St. [facility] HospitalComment on above:These are unconfirmed results and should not be used for legal purposes. Drug Cut-Off Concentration: AMPH 1000 ng/mL BHASKAR 200 ng/mL RIKKI 200 ng/mL COCM 300 ng/mL OP 300 ng/mL PCP 25 ng/mL THC 20 ng/mLColor Auto (U)Ordered By: Jamin Sepulveda on 28-73-5144Krlns (U)Color of Urine by AutoYellowSt. Elizabeth Hospital Complete Blood Count Auto Diffon 56-70-8029Dueabrzcg (Bld) [#/Vol]0.0 10*3/uL Normal0.0-0.2[facility] Physician GroupComment on above:Result Comment: PERFORMED BY:[address] [place], [place] [phone] MEDICAL DIRECTORVÍCTOR LUCERO M.D. Performed By: #### CK, PRL, PTT, CMP, PT, HS TROP, CBC ####[place] [id number] USABasophils/100 WBC (Bld)0.4 % Normal.[facility] Physician GroupComment on above:Performed By: #### CK, PRL, PTT, CMP, PT, HS TROP, CBC ####[address] [address] USAEosinophils (Bld) [#/Vol]0.0 10*3/uLNormal0.0-0.45 [facility] Physician GroupComment on above:Performed By: #### CK, PRL, PTT, CMP, PT, HS TROP, CBC ####[address] [address] USAEosinophils/100 WBC (Bld)0.1 %Normal.[facility] Physician GroupComment on above:Performed By: #### CK, PRL, PTT, CMP, PT, HS TROP, CBC ####[address] [address] USAErythrocyte distribution width (RBC) [Ratio]13.6 %Ozntmk40.0-14.8[facility] Physician GroupComment on above:Performed By: #### CK, PRL, PTT, CMP, PT, HS TROP, CBC ####[place] [address] USAHematocrit (Bld) [Volume fraction]46.4 %Lkokiv49.8-50.0[facility] Physician GroupComment on above:Performed By: #### CK, PRL, PTT, CMP, PT, HS TROP, CBC ####[place] [address] USAHemoglobin (Bld) [Mass/Vol]15.6 g/hZBhyemi99.0-17.0[facility] Physician GroupComment on above:Performed By: #### CK, PRL, PTT, CMP, PT, HS TROP, CBC ####[address] Lymphocytes (Bld) [#/Vol]0.4 10*3/uLLow1.00-4.8[facility] Comment on above:Performed By: #### CK, PRL, PTT, CMP, PT, HS TROP, CBC ####[address] Lymphocytes/100 WBC (Bld)4.4 %Normal.[facility] Physician GroupComment on above:Performed By: #### CK, PRL, PTT, CMP, PT, HS TROP, CBC ####[address]H (RBC) [Entitic mass]28.8 pqNioypo07.5-35.2[facility] Physician GroupComment on above: Performed By: #### CK, PRL, PTT, CMP, PT, HS TROP, CBC ####[address] (RBC) [Entitic vol]85.6 fL Ayfeas83.5-101The [facility] Physician GroupComment on above:Performed By: #### CK, PRL, PTT, CMP, PT, HS TROP, CBC ####[address] [place] [address] USAMean Corpuscular HGB Conc33.6 g/fSXhdnyp33.5-35.6The [facility] Physician GroupComment on above:Performed By: #### CK, PRL, PTT, CMP, PT, HS TROP, CBC ####[place] [address] USAMonocytes (Bld) [#/Vol]0.3 10*3/uLNormal0.0-0.8The [facility] Physician GroupComment on above:Performed By: #### CK, PRL, PTT, CMP, PT, HS TROP, CBC ####[place] [address] [place] Monocytes/100 WBC (Bld)15.39 %Normal0.00-20.00The [facility] Comment on above:Performed By: #### CK, PRL, PTT, CMP, PT, HS TROP, CBC ####[place] [address] [place] Monocytes/100 WBC (Bld)3.3 %Normal.The [facility] Physician GroupComment on above:Performed By: #### CK, PRL, PTT, CMP, PT, HS TROP, CBC ####[place] [address] USANeutrophils (Bld) [#/Vol]9.2 10*3/uLHigh1.8-7.7The [facility] Physician GroupComment on above: Performed By: #### CK, PRL, PTT, CMP, PT, HS TROP, CBC ####[id number] USANeutrophils/100 WBC (Bld)91.8 % Normal.The [facility] Physician GroupComment on above:Performed By: #### CK, PRL, PTT, CMP, PT, HS TROP, CBC ####[place] [address] USANRBC%0.1 /100{WBC}Normal0-0.5The [facility] Physician GroupComment on above:Performed By: #### CK, PRL, PTT, CMP, PT, HS TROP, CBC ####[place] [address] USAPlatelet mean volume (Bld) [Entitic vol]7.3 fLNormal6.6-10.1The [facility] Physician GroupComment on above:Performed By: #### CK, PRL, PTT, CMP, PT, HS TROP, CBC ####[place] [address] [place] Platelets (Bld) [#/Vol]280 10*3/nTMkzjgg262-681Uyt [facility] Comment on above:Performed By: #### CK, PRL, PTT, CMP, PT, HS TROP, CBC ####[place] [address] USARBC (Bld) [#/Vol]5.42 10*6/uLNormal3.90-5.60The [facility] Physician GroupComment on above:Performed By: #### CK, PRL, PTT, CMP, PT, HS TROP, CBC ####[place] [address] USAWBC (Bld) [#/Vol]10.1 10*3/uLNormal4.1-10.5The [facility] Physician GroupComment on above:Performed By: #### CK, PRL, PTT, CMP, PT, HS TROP, CBC ####[place] [address] USAComprehensive Metabolic Panelon 11-17-2024 Albumin [Mass/Vol]4.2 g/dLNormal3.5-5.7The [facility] Physician GroupComment on above:Performed By: #### CK, PRL, PTT, CMP, PT, HS TROP, CBC ####[place] [address] USAAlbumin/Globulin [Mass ratio]1.7 {ratio}NormalThe [facility] Physician GroupComment on above:Performed By: #### CK, PRL, PTT, CMP, PT, HS TROP, CBC ####[place] [id number] USAALP [Catalytic activity/Vol]95 U/L Tppknd79-645Jpl [facility] Physician GroupComment on above:Performed By: #### CK, PRL, PTT, CMP, PT, HS TROP, CBC ####[address] USAALT [Catalytic activity/Vol]12 U/LNormal7-52The [facility] Physician GroupComment on above:Performed By: #### CK, PRL, PTT, CMP, PT, HS TROP, CBC ####[place] [address] USAAnion gap [Moles/Vol]13.0 mmol/LNormal6.0-15.0The [facility] Physician GroupComment on above:Performed By: #### CK, PRL, PTT, CMP, PT, HS TROP, CBC ####[place] [address] USAAST [Catalytic activity/Vol]24 U/HDjmixt97-47Jmh [facility] Physician GroupComment on above:Performed By: #### CK, PRL, PTT, CMP, PT, HS TROP, CBC ####[address] [address] USABilirubin [Mass/Vol] 0.6 mg/dLNormal0.3-1.0The [facility] Physician GroupComment on above:Performed By: #### CK, PRL, PTT, CMP, PT, HS TROP, CBC ####[address] [address] USACalcium [Mass/Vol]9.1 mg/dLNormal 8.6-10.3The [facility] Physician GroupComment on above:Performed By: #### CK, PRL, PTT, CMP, PT, HS TROP, CBC ####[address] [address] USAChloride [Moles/Vol]104 mmol/NPhhxbw05-888Bty [facility] Physician [facility]oxiComment on above:Performed By: #### CK, PRL, PTT, CMP, PT, HS TROP, CBC ####[place] [address] USACO2 [Moles/Vol]29.2 mmol/QNrntli15.0-31.0The [facility] Physician [facility] Comment on above:Performed By: #### CK, PRL, PTT, CMP, PT, HS TROP, CBC ####[place] [address] [place] Creatinine [Mass/Vol]1.27 mg/dLNormal0.70-1.30The [facility] Physician [facility] Comment on above:Performed By: #### CK, PRL, PTT, CMP, PT, HS TROP, CBC ####[place] [address] USAGFR/1.73 sq M.predicted MDRD (S/P/Bld) [Vol rate/Area]mL/min/{1.73_m2}NormalThe [facility] Physician GroupComment on above:Performed By: #### CK, PRL, PTT, CMP, PT, HS TROP, CBC ####[place] [address] USAGlobulin (S) [Mass/Vol]2.5 g/dLNormalThe [facility] Physician [facility] Comment on above:Performed By: #### CK, PRL, PTT, CMP, PT, HS TROP, CBC ####[place] [address] USAGlucose [Mass/Vol]163 mg/jCFfef33-091Dmq [facility] Physician GroupComment on above: Result Comment: Random Glucose Reference Range is dependent on time and content of last meal. Glucose of more than 200 mg/dL in a nonstressed, ambulatory subject supports the diagnosis of Diabetes Mellitus. ADA recommended reference rangePerformed By: #### CK, PRL, PTT, CMP, PT, HS TROP, CBC ####[place] [address] USAPotassium [Moles/Vol] 4.2 mmol/LNormal3.5-5.1The [facility] Physician GroupComment on above:Performed By: #### CK, PRL, PTT, CMP, PT, HS TROP, CBC ####[address] [place] [address] USAProtein [Mass/Vol]6.7 g/dLNormal6.4-8.9 The [facility] Physician GroupComment on above:Performed By: #### CK, PRL, PTT, CMP, PT, HS TROP, CBC ####[address] USASodium [Moles/Vol]142 mmol/TPzvneo124-275Eoe [facility] Physician GroupComment on above:Performed By: #### CK, PRL, PTT, CMP, PT, HS TROP, CBC ####[address] [place] [address] USAUrea nitrogen [Mass/Vol]16 mg/dLNormal7-25The [facility] Comment on above:Performed By: #### CK, PRL, PTT, CMP, PT, HS TROP, CBC ####[address] [address] USACreatine Kinaseon 00-81-1022VY [Catalytic activity/Vol]134 U/CTxqrwz35-844Ide [facility] Physician GroupComment on above:Performed By: #### CK, PRL, PTT, CMP, PT, HS TROP, CBC ####[place] [address] [id number] USACreatine kinase [Enzymatic activity/volume] in Serum or PlasmaOrdered By: Jamin Sepulveda on 88-91-2388ZT [Catalytic activity/Vol]Creatine kinase [Enzymatic activity/volume] in Serum or Wmfowi94-371ChaxnpfaqSt. [facility] Hospital Dipstick and Microscopicon 51-53-2528Lrkfmtixin (U)ClearNormalClearThe [facility] Physician GroupComment on above:Order Comment: Name Collection Type:: Clean- Voided MidstreamPerformed By: #### URDS, ADDONUAPLUS ####[address] [address] USABacteria,UrineNone SeenNormal None SeenHca Florida [facility] Physician GroupComment on above:Order Comment: Name Collection Type:: Clean-Voided MidstreamPerformed By: #### URDS, ADDONUAPLUS ####[address] [address] [place] Bilirubin,UrineNegativeNormalNegativeHca [facility] Physician GroupComment on above:Order Comment: Name Collection Type:: Clean-Voided MidstreamPerformed By: #### URDS, ADDONUAPLUS ####[address] [address] USAColor (U)YellowNormalYellowHca [facility] Physician GroupComment on above:Order Comment: Name Collection Type:: Clean-Voided MidstreamPerformed By: #### URDS, ADDONUAPLUS ####[address] [address] USAGlucose Ql (U)70 mg/dLHighNormHCA [facility] Physician GroupComment on above:Order Comment: Name Collection Type:: Clean-Voided MidstreamPerformed By: #### URDS, ADDONUAPLUS ####[address] [address] USAHyaline Casts,Urine NoneNormal0-8The [facility] Physician GroupComment on above:Order Comment: Name Collection Type:: Clean-Voided MidstreamPerformed By: #### URDS, ADDONUAPLUS ####[address] [address] USAKetones Ql (U)NegativeNormalNegativeHca [facility] Physician GroupComment on above:Order Comment: Name Collection Type:: Clean-Voided MidstreamPerformed By: #### URDS, ADDONUAPLUS ####[address] [address] USALeukocyte esterase Test strip Ql (U)NegativeNormalNegativeHca [facility] Physician GroupComment on above:Order Comment: Name Collection Type:: Clean- Voided MidstreamPerformed By: #### URDS, ADDONUAPLUS ####[address] [address] USAMucus,UrineRareNormalThe [facility] Physician GroupComment on above:Order Comment: Name Collection Type:: Clean-Voided MidstreamResult Comment: PERFORMED BY:[address] [place] [place], [place] [phone] MEDICAL DIRECTORVÍCTOR LUCERO M.D.Performed By: #### URDS, ADDONUAPLUS ####[address] [address] [place] Nitrite,UrineNegativeNormalNegativeThe [facility] Physician GroupComment on above:Order Comment: Name Collection Type:: Clean-Voided MidstreamPerformed By: #### URDS, ADDONUAPLUS ####[address] [address] USAOccult Blood,UrineNegativeNormalNegativeThe [facility] Physician GroupComment on above:Order Comment: Name Collection Type:: Clean-Voided MidstreamPerformed By: #### URDS, ADDONUAPLUS ####[address] [address] USApH (U)6.5 [pH]Normal 5.0-9.0The [facility] Physician GroupComment on above:Order Comment: Name Collection Type:: Clean-Voided MidstreamPerformed By: #### URDS, ADDONUAPLUS ####[address] [address] USAProtein (U) [Mass/Vol]70 mg/dLHighNegativeThe [facility] Physician GroupComment on above:Order Comment: Name Collection Type:: Clean-Voided MidstreamPerformed By: #### URDS, ADDONUAPLUS ####[address] [address] USARBC,Urine3 [HPF]Normal0-4The [facility] Physician GroupComment on above:Order Comment: Name Collection Type:: Clean-Voided MidstreamPerformed By: #### URDS, ADDONUAPLUS ####[address] [place] [address] USASpecificy [place],Urine>1.050High 1.001-1.030The [facility] Physician GroupComment on above:Order Comment: Name Collection Type:: Clean-Voided MidstreamResult Comment: Rechecked by refractometerPerformed By: #### URBRIDGET, ADDONUAPLUS ####[address] [address] USASquamous Epithelial Cell,Urine1 [HPF] Normal0-2The [facility] Physician GroupComment on above:Order Comment: Name Collection Type:: Clean-Voided MidstreamPerformed By: #### URDS, ADDONUAPLUS ####[place] [address] [place] Urobilinogen,UrineNormalNormalNormalThe [facility] Physician GroupComment on above:Order Comment: Name Collection Type:: Clean-Voided MidstreamPerformed By: #### URDS, ADDONUAPLUS ####[address] [address] USAWBC,Urine1 [HPF]Normal0-4The [facility] Physician GroupComment on above:Order Comment: Name Collection Type:: Clean-Voided MidstreamPerformed By: #### URDS, ADDONUAPLUS ####[address] [address] USADrug Screen,Urineon 11-17-2024 Amphetamine Screen,UrinePositiveHighNegativeThe [facility] Physician GroupComment on above:Performed By: #### URDS, ADDONUAPLUS ####[address] [address] USABarbiturate Screen,UrineNegativeNormal NegativeThe [facility] Physician GroupComment on above:Performed By: #### URDS, ADDONUAPLUS ####[address] [address] USABenzodiazepines Screen,UrinePositiveHighNegativeThe [facility] Physician GroupComment on above:Performed By: #### URDS, ADDONUAPLUS ####[address] [address] USACannabinoid Screen,UrinePositiveHighNegativeThe [facility] Physician GroupComment on above: Result Comment: These are unconfirmed results and should not be used for legal purposes. Drug Cut-Off Concentration: AMPH 1000 ng/mL BHASKAR 200 ng/mL RIKKI 200 ng/mL COCM 300 ng/mL OP 300 ng/mL PCP 25 ng/mL THC 20 ng/mLPERFORMED BY:[address] [address] [address] [place], [place] [phone] MEDICAL DIRECTORVÍCTOR LUCERO M.D.Performed By: #### URDS, ADDONUAPLUS ####[address] USACocaine Screen,UrineNegativeNormalNegativeThe [facility] Physician [facility]iComment on above:Performed By: #### URDS, ADDONUAPLUS ####[address] USAOpiate Screen,Urine NegativeNormalNegativeThe [facility] Physician GroupComment on above:Performed By: #### URDS, ADDONUAPLUS ####[address] USAPhencyclidine Screen,UrineNegativeNormalNegativeThe [facility] Physician [facility]oxiComment on above:Performed By: #### URDS, ADDONUAPLUS ####[place] [address] USAECG 12 lead ECGon 85-67-0605YZN 12 lead ECGNormalThe [facility] Physician [facility] Epithelial cells.squamous [#/area] in Urine sediment by Automated countOrdered By: Jamin Sepulveda on 34-75-5843Yfccrtcdww cells.squamous Auto (Urine sed) [#/Area]Epithelial cells.squamous [#/area] in Urine sediment by Automated count 0-2FBucyrus Community HospitalErythrocyte Sedimentation Rateon 11-17-2024 ESR (Bld) [Velocity]2 mm/hNormal0-19[facility] Physician GroupComment on above:Result Comment: PERFORMED BY:[address] [place], [place] [phone] MEDICAL DIRECTORVÍCTOR ARSHAD M.D.Performed By: #### B12, ESR, HS TROP ####[address] [address] USAErythrocyte sedimentation rate by Photometric methodOrdered By: Chaz Frey on 22-90-8043GHA Photometric method (Bld) [Velocity]Erythrocyte sedimentation rate by Photometric method0 [facility] [facility] HospitalErythrocytes [#/area] in Urine sediment by Automated countOrdered By: Jamin Sepulveda on 05-15-9830JYM Auto (Urine sed) [#/Area]Erythrocytes [#/area] in Urine sediment by Automated count0Bucyrus Community HospitalEthanol [Mass/volume] in Serum or PlasmaOrdered By: Jamin Sepulveda on 50-82-9336Vqmclpa [Mass/Vol]Ethanol [Mass/volume] in Serum or PlasmaSt. Elizabeth HospitalComment on above:Test not performedEthyl Alcohol Profileon 74-72-1717Komuhwb [Mass/Vol]mg/dLNoTransylvania Regional Hospital Physician GroupComment on above:Performed By: #### ETOH ####[address] [address] USAPercent EthanolNot performedNoTransylvania Regional Hospital Physician GroupComment on above:Result Comment: PERFORMED BY:[address] [place], [place] [phone] MEDICAL DIRECTORVÍCTOR LUCERO M.D.Performed By: #### ETOH ####[address] [address] USAGlucose Glucometer (BldC) [Mass/Vol]Ordered By: Jamin Sepulveda on 82-48-3822Mneejiu [Mass/Vol]Capillary blood glucose measurement by glucometer (mass/volume) St. [facility] HospitalComment on above:Random Glucose Reference Range is dependent on time and content of last meal. Glucose of more than 200 mg/dL in a nonstressed, ambulatory subject supports the diagnosis of Diabetes Mellitus.Glucose Poct Glucometerson 67-94-4887Olostdf [Mass/Vol]175 mg/dLNormal [facility] Physician GroupComment on above:Result Comment: Random Glucose Reference Range is dependent on time and content of last meal. Glucose of more than 200 mg/dL in a nonstressed, ambulatory subject supports the diagnosis of Diabetes Mellitus.PERFORMED BY:[facility] [place] [phone] MEDICAL DIRECTORVÍCTOR ARSHAD M.D.Performed By: #### GLULS ####Point of Care testing,Glucose [Mass/volume] in Urine by Test stripOrdered By: Jamin Sepulveda on 11-17-2024 Glucose Test strip (U) [Mass/Vol]Glucose [Mass/volume] in Urine by Test strip HighNormMansfield HospitalHemoglobin Test strip Ql (U)Ordered By: Jamin Sepulveda on 41-82-6584Ixgbrscmzr Ql (U)Hemoglobin [Presence] in Urine by Test stripNegParkview Health Montpelier HospitalHyaline casts [#/area] in Urine sediment by Automated countOrdered By: Jamin Sepulveda on 54-84-5795Lncqzif casts Auto (Urine sed) [#/Area]Hyaline casts [#/area] in Urine sediment by Automated count0-8St. [facility] HospitalINR in Platelet poor plasma by Coagulation assayOrdered By: Jamin Sepulveda on 78-87-2615MRX Coag (PPP) [Relative time]INR in Platelet poor plasma by Coagulation assaySt. Elizabeth HospitalComment on above:INR Therapeutic Range A) Pre- [...] strip Ql (U)Ordered By: Jamin Sepulveda on 19-39-9772Buxdyop Ql (U)Ketones [Presence] in Urine by Test stripNegParkview Health Montpelier HospitalLeukocyte esterase [Presence] in Urine by Test stripOrdered By: Jamin Sepulveda on 60-50-1677Augubokun esterase Test strip Ql (U)Leukocyte esterase [Presence] in Urine by Test stripNegative St. Elizabeth HospitalLeukocytes [#/area] in Urine sediment by Automated countOrdered By: Jamin Sepulveda on 98-54-2369PYY Auto (Urine sed) [#/Area]Leukocytes [#/area] in Urine sediment by Automated count0-4FBucyrus Community HospitalMagnesiumon 00-75-9651Uaqfvfnkt [Mass/Vol]1.9 mg/dLNormal 1.9-2.7The [facility] Physician GroupComment on above:Order Comment: Comment add onResult Comment: PERFORMED BY:[facility] [place], [place] [phone] MEDICAL DIRECTORVÍCTOR ARSHAD M.D.Performed By: #### MG ####[facility] [place] [address] USAMagnesium [Mass/volume] in Serum or PlasmaOrdered By: Chaz Frey on 17-24-0945Mrnyzzfja [Mass/Vol]Magnesium [Mass/volume] in Serum or Plasma1.9-2.7FBucyrus Community HospitalMethamphetamine [Presence] in UrineOrdered By: Chaz Frey on 67-66-5709Ovvsyxmkrfudlna Ql (U) Methamphetamine [Presence] in UrineAbnormal.[facility] Methamphetamine cutoff [Mass/volume] in Urine for Confirmatory methodOrdered By: Chaz Frey on 29-24-1954Kvftntgviabtsqv cutoff Confirm (U) [Mass/Vol] Methamphetamine cutoff [Mass/volume] in Urine for Confirmatory ppoyoxZzhveb=572 [facility] HospitalMonocyte distribution width [Entitic volume] in Blood by AutomatedOrdered By: Jamin Sepulveda on 24-46-1712Culqiuzb distribution width Auto (Bld) [Entitic vol]Monocyte distribution width [Entitic volume] in Blood by Automated0.00-20.00St[facility] HospitalMucus [Presence] in Urine by AutomatedOrdered By: Jamin Sepulveda on 31-09-6101Clnye Auto Ql (U)Mucus [Presence] in Urine by AutomatedFirelands Regional Medical CenterNitrite Test strip Ql (U)Ordered By: Jamin Sepulveda on 18-74-8507Fdvzoia Ql (U)Nitrite [Presence] in Urine by Test stripNegParkview Health Montpelier Hospital Opiates [Presence] in UrineOrdered By: Chaz Frey on 85-97-3908Wyfhlqc Ql (U) Opiates [Presence] in HlxbySqhvdz=481SrxkjwfgqSt. Elizabeth HospitalComment on above:Opiate test includes Codeine and Morphine only.Opiates [Presence] in Urine by Screen methodOrdered By: Jamin Sepulveda on 34-86-2215Jhamqar Screen Ql (U)Opiates [Presence] in Urine by Screen methodNegParkview Health Montpelier HospitalPartial Thromboplastin Timeon 91-18-2793bUFI Coag (Bld) [Time]22.3 sLow25.1-36.5The [facility] Physician GroupComment on above:Result Comment: A hematocrit value greater than 55% may lead to inaccurate results in coagulation testing. Patients having hematocrit values >55% require a special collection tube for coagulation studies. Please contact the laboratory at [phone] for redraw instructions.PERFORMED BY:[address] [place], [place] [phone] MEDICAL DIRECTORVÍCTOR ARSHAD M.D.Performed By: #### CK, PRL, PTT, CMP, PT, HS TROP, CBC ####[address] [address] [facility] Phencyclidine Screen Ql (U)Ordered By: Jamin Sepulveda on 13-35-1083Cnzvaigdjlkxo Ql (U)Phencyclidine [Presence] in Urine by Screen methodNegParkview Health Montpelier HospitalPhencyclidine [Presence] in UrineOrdered By: Cahz Frey on 62-11-2605Diendadzccfcr Ql (U)Phencyclidine [Presence] in Urine Cutoff=25St. [facility] HospitalComment on above:Performed at: - [facility] [id number] [place], [place] [id number] Director: Adenike Panchal PhD, Phone: [phone] 00-38-9650Lbwaxcxmx61.22 ng/mLHigh 2.64-13.13The [facility] Physician GroupComment on above:Result Comment: PERFORMED BY:[address] [place], [place] [phone] MEDICAL DIRECTORVÍCTOR LUCERO M.D. Performed By: #### CK, PRL, PTT, CMP, PT, HS TROP, CBC ####[address] [place] [address] USAProtein Test strip (U) [Mass/Vol]Ordered By: Jamin Sepulveda on 86-32-6237Aykoloa (U) [Mass/Vol]Protein [Mass/volume] in Urine by Test stripHighNegativeSt. Elizabeth HospitalProthrombin Time INRon 79-83-8610OTA Coag (PPP) [Relative time]1.0 {INR} NormalThe [facility] Physician GroupComment on above:Result Comment: INR [...] heart valves: 3 - 4.5Performed By: #### CK, PRL, PTT, CMP, PT, HS TROP, CBC ####[address] [address] USAPT Coag (PPP) [Time]11.9 s Normal9.0-12.9The [facility] Physician GroupComment on above:Result Comment: A hematocrit value greater than 55% may lead to inaccurate results in coagulation testing. Patients having hematocrit values >55% require a special collection tube for coagulation studies. Please contact the laboratory at [phone] for redraw instructions.Performed By: #### CK, PRL, PTT, CMP, PT, HS TROP, CBC ####[address] [place] [address] [facility] Prothrombin time (PT)Ordered By: Jamin Sepulveda on 90-45-8467BD Coag (PPP) [Time] Prothrombin time (PT)9.0-12.9St. [facility] HospitalComment on above:A hematocrit value greater than 55% may lead to inaccurate results in coagulation testing. Patientshaving hematocrit values >55% require a special collection tube for coagulation studies. Please contact the laboratory at [phone] for redraw instructions.Specific gravity of Urine by RefractometryOrdered By: Jamin Sepulveda on 43-53-5997Yowlrrua gravity Refractometry (U) [Rel density] Specific gravity of Urine by RefractometryHigh1.001-1.030St. [facility] HospitalComment on above:Rechecked by refractometerTroponin I High Sensitivityon 99-15-4823Ibchzpsk I High Rpsdvrvuzgg74.7 pg/mLHigh0.0-20.0The [facility] Physician GroupComment on above:Result Comment: PERFORMED BY:[address] [place], [place] [phone] MEDICAL DIRECTORVÍCTOR JONESPAVITHRA RichPerformed By: #### B12, ESR, HS TROP ####[place] [id number] [facility] Troponin I High Lzfgspnjvdi29.1 pg/mLHigh0.0-20.0The [facility] Physician [facility] Comment on above:Result Comment: PERFORMED BY:[address] [place], [place] [phone] MEDICAL DIRECTORVÍCTOR JONESPAVITHRA RichPerformed By: #### CK, PRL, PTT, CMP, PT, HS TROP, CBC ####[address] [address] [facility] CENTERUrine Drug Screen w/Confirmon 77-05-2171Oirxvgijcioh GC/MS Confirm, Ur527 ng/zDOziwqaVfegbe=449Ssw [facility] Physician GroupComment on above:Performed By: #### UDS SCRN wRFX ####[facility] ,Amphetamines, UrSee Final Results DjhobiFztxzm=8765Cle [facility] Physician GroupComment on above:Result Comment: Amphetamine test includes Amphetamine and Methamphetamine.Performed By: #### UDS SCRN wRFX ####[facility] ,Amphetamines, UrPositiveCritically abnormal. The [facility] Physician GroupComment on above:Result Comment: Amphetamine test includes Amphetamine and Methamphetamine.Performed By: #### UDS SCRN wRFX ####[facility] ,Barbiturate, DuSekuezlmLzvfkfCsjogt=435Ggl [facility] Physician GroupComment on above:Performed By: #### UDS SCRN wRFX ####[facility] ,Benzodiazepines, UrSee Final QppygamVomhrfXyockf=224Ueb [facility] Physician GroupComment on above:Performed By: #### UDS SCRN wRFX ####[facility] ,Benzodiazepines, KhfbzOenihrpkVmdfgsPhbhrc=797Svk [facility] Physician GroupComment on above:Performed By: #### UDS SCRN wRFX ####[facility] ,Cannabinoid, UrSee Final ResultsNormalCutoff=50[facility] Physician GroupComment on above:Performed By: #### UDS SCRN wRFX ####[facility] ,Cannabinoid, UrineNegativeNormalCutoff=50[facility] Physician GroupComment on above:Result Comment: PERFORMED BY:[place] [address] [address] [place], [place] [phone] MEDICAL DIRECTORVÍCTOR LUCERO M.D.Performed By: #### UDS SCRN wRFX ####[facility] ,Cocaine (Metab), WbTfgoossdQjnvckBwdidn=514Xar [facility] Physician GroupComment on above:Performed By: #### UDS SCRN wRFX ####[facility] ,MethamphetaminePositiveCritically abnormal.[facility] Physician GroupComment on above:Performed By: #### UDS SCRN wRFX ####[facility] ,Methamphetamines GC/MS, Ur>3119CjxvyjKiyxtj=643Lwk [facility] Physician GroupComment on above:Performed By: #### UDS SCRN wRFX ####[facility] ,Opaites, WaWwsbtpkfVardpaXojjul=074Yjr [facility] Physician Group Comment on above:Result Comment: Opiate test includes Codeine and Morphine only. Performed By: #### UDS SCRN wRFX ####[facility] ,Phencyclidine, Ur NegativeNormalCutoff=25[facility] Physician GroupComment on above:Result Comment: Performed at: - [facility] [address], [place], [place] [address] Wine And Spirits Clerk: Adenike Panchal PhD, Phone: [phone] By: #### UDS SCRN wRFX ####[facility] ,Urine cocaine metabolite detectionOrdered By: Chaz Frey on 44-47-3515Wadfywpgatafwac Ql (U)Urine cocaine metabolite ihnvtcnyiIosngc=822HkuovgumbSt. Elizabeth HospitalUrobilinogen Test strip (U) [Mass/Vol]Ordered By: Jamin Sepulveda on 07-03-1393Ygkcqmbtdtzd (U) [Mass/Vol] Urobilinogen [Mass/volume] in Urine by Test stripNoAshtabula General HospitalVitamin B12on 55-79-1577Sucsktmrj (Vitamin B12) [Mass/Vol]313 pg/lNDzwefk238-739Zyd [facility] Physician [facility] BiloxiComment on above:Result Comment: PERFORMED BY:[facility] [place], [place] [phone] MEDICAL DIRECTORVÍCTOR LUCERO M.D. Performed By: #### B12, ESR, HS TROP ####[facility] [place] [address] [facility] MEDICAL CENTERVitamin B12 ser/plasOrdered By: Chaz Frey on 47-69-2915Hjjpsvwgi (Vitamin B12) [Mass/Vol]Vitamin B12 ser/leet929-249 [facility] HospitalX-ray reportOrdered By: Dung Chakraborty on 35-46-7932Csywl reportOHIOHEALTH Main Scio [address] [place] [address] XRay Report Signed Patient: Aaron Olivarez MR#: [id number] : 1960 Acct:[id number] Age/Sex: 64 / M ADM Date: 5 Loc: Room: [address] [place] [address] Type: ADM INOo Attending Dr: Chaz Frey [...] Dung Chakraborty M.D.11/17/2024 1:26 PM Dictation Location: [facility]--17 Transcribed By: [facility] 11/17/24 132 Dictated By: Dung Chakraborty II, MD 11/17/241325 Signed By: 11/17/[address] [facility] Work Phone: XR chest 1V portableon 05-03-3019XD chest 1V portable NormalThe [facility] Physician GroupaPTT in Platelet poor plasma by Coagulation assayOrdered By: Jamin Sepulveda on 45-21-9440qZUB Coag (PPP) [Time]Activated partial thromboplastin time (aPTT) in platelet poor plasma by coagulation aLow 25.1-36.5FBucyrus Community HospitalComment on above:A hematocrit value greater than 55% may lead to inaccurate results in coagulation testing. Patients having hematocrit values >55% require a special collection tube for coagulation studies. Please contact the laboratory at [phone] for redraw instructions. pH Test strip (U)Ordered By: Jamin Sepulveda on 90-09-0432qI (U)pH of Urine by Test strip5.0-9.0St. Elizabeth HospitalCB with Diffon 01-28-4809Uxs. Basophil0.04 k/uLNormal0.00-0.20[facility] HospitalComment on above:Performed By: #### CDP, CMPX, MG #### [facility] [address] [place] [address] Wine And Spirits Clerk: Olya Barrera.Imm.Granulocyte<0.51Wnzeyr9.00-0.30[facility] County HospitalComment on above:Performed By: #### CDP, CMPX, MG #### [facility] [address] [place] [address] Wine And Spirits Clerk: Olya Barrera.Neutrophil (Seg)3.52 k/uLNormal1.50-8.10 [facility] HospitalComment on above:Performed By: #### CDP, CMPX, MG #### [facility] [address] [place] [address] Wine And Spirits Clerk: Dario Almanza MDBasophils/100 WBC (Bld)1 %Normal0-2MCorcoran District HospitalComment on above:Performed By: #### CDP, CMPX, MG #### [address] [address] Wine And Spirits Clerk: Dario Almanza MDEosinophils (Bld) [#/Vol]0.03 10*3/uLNormal 0.00-0.44[facility] HospitalComment on above:Performed By: #### CDP, CMPX, MG #### [facility] [employer] [address] [place] [address] Wine And Spirits Clerk: KEATON Barreraosinophils/100 WBC (Bld)1 %Normal1-4[facility] HospitalComment on above:Performed By: #### CDP, CMPX, MG #### [address] [address] Wine And Spirits Clerk: Dario Almanza MDErythrocyte distribution width (RBC) [Ratio]13.1 %Pnpllb29.8-14.4[facility] County HospitalComment on above:Performed By: #### CDP, CMPX, MG #### [place] [address] Wine And Spirits Clerk: Dario Almanza MDHematocrit (Bld) [Volume fraction]42.4 %Normal 40.7-50.3MCorcoran District HospitalComment on above:Performed By: #### CDP, CMPX, MG #### [place] [address] Wine And Spirits Clerk: Dario Almanza MDHemoglobin (Bld) [Mass/Vol]13.7 g/dLNormal 13.0-17.0[facility] HospitalComment on above:Performed By: #### CDP, CMPX, MG #### [place] [address] Wine And Spirits Clerk: Dario Almanza MDImmature granulocytes/100 WBC (Bld)0 %Normal0 [facility] HospitalComment on above:Performed By: #### CDP, CMPX, MG #### [place] [address] Wine And Spirits Clerk: Dario Almanza MDLymphocytes (Bld) [#/Vol]1.19 10*3/uLNormal 1.10-3.70[facility] HospitalComment on above:Performed By: #### CDP, CMPX, MG #### [facility] [employer] [address] [place] [address] Wine And Spirits Clerk: Mis Barreramphocytes/100 WBC (Bld)22 %Wvh23-37LmpnxWood County HospitalComment on above:Performed By: #### CDP, CMPX, MG #### [facility] [employer] [address] [place] [address] Wine And Spirits Clerk: ELISABETH BarreraCH (RBC) [Entitic mass]29.6 lrRhsbfi56.2-33.5 [facility] HospitalComment on above:Performed By: #### CDP, CMPX, MG #### [address] [address] Wine And Spirits Clerk: ELISABETH BarreraCHC (RBC) [Mass/Vol]32.3 g/lPPtzmnd55.4-34.8 [facility] HospitalComment on above:Performed By: #### CDP, CMPX, MG #### [address] [address] Wine And Spirits Clerk: ELISABETH BarreraCV (RBC) [Entitic vol]91.6 bGNbwdxj31.6-102.9 [facility] HospitalComment on above:Performed By: #### CDP, CMPX, MG #### [facility] [employer] [address] [place] [address] Wine And Spirits Clerk: ELISABETH Barreraonocytes (Bld) [#/Vol]0.61 10*3/uLNormal 0.10-1.20[facility] HospitalComment on above:Performed By: #### CDP, CMPX, MG #### [facility] [employer] [address] [place] [address] Wine And Spirits Clerk: ELISABETH Barreraonocytes/100 WBC (Bld)11 %Normal3-12[facility] HospitalComment on above:Performed By: #### CDP, CMPX, MG #### [facility] [employer] [address] [place] [address] Wine And Spirits Clerk: Dario Almanza MDNeutrophil (Seg)65 %Lbousc55-60NpmezWood County HospitalComment on above:Performed By: #### CDP, CMPX, MG #### [facility] [employer] [address] [place] [address] Wine And Spirits Clerk: BUNNY Barrera Automated0.0 per 100 WBCNormal0.0[facility] County HospitalComment on above:Performed By: #### CDP, CMPX, MG #### [facility] [employer] [address] [place] [address] Wine And Spirits Clerk: Christel Barreratelet mean volume (Bld) [Entitic vol]9.2 fL Normal8.1-13.5[facility] County HospitalComment on above:Performed By: #### CDP, CMPX, MG #### [facility] [employer] [address] [place] [address] Wine And Spirits Clerk: Christel Barreratelets (Bld) [#/Vol]227 10*3/uJScugdu356-128 [facility] HospitalComment on above:Performed By: #### CDP, CMPX, MG #### [address] [address] Wine And Spirits Clerk: ARASELI BarreraBC (Bld) [#/Vol]4.63 10*6/uLNormal4.21-5.77 [facility] HospitalComment on above:Performed By: #### CDP, CMPX, MG #### [facility] [employer] [address] [place] [address] Wine And Spirits Clerk: DENTON Barrera (Bld) [#/Vol]5.4 10*3/uLNormal3.5-11.3MCorcoran District HospitalComment on above:Performed By: #### CDP, CMPX, MG #### [facility] [address] [place] [address] Wine And Spirits Clerk: NEHEMIAS Barreraomp Metabolic Pr/rfx MGon 33-65-9830Evjxtct [Mass/Vol]3.8 g/dLNormal3.5-5.2MCorcoran District HospitalComment on above: Performed By: #### CDP, CMPX, MG #### [facility] [address] [place] [address] Wine And Spirits Clerk: Dario Almanza MDAlbumin/Glob Ratio2.9Femutx0.0-2.5[facility] County HospitalComment on above:Performed By: #### CDP, CMPX, MG #### [address] [address] Wine And Spirits Clerk: Harsha Barrerakaline Dfug219 U/PQmdvou85-823LwxqmWood County HospitalComment on above:Performed By: #### CDP, CMPX, MG #### [address] [address] Wine And Spirits Clerk: Dario Almanza MDALT [Catalytic activity/Vol]7 U/LZfl23-75AojjsWood County HospitalComment on above:Performed By: #### CDP, CMPX, MG #### [address] [address] Wine And Spirits Clerk: Kimberlee Barrera gap [Moles/Vol]7 mmol/LLow9-16[facility] County HospitalComment on above:Performed By: #### CDP, CMPX, MG #### [address] [address] Wine And Spirits Clerk: Dario Almanza MDAST [Catalytic activity/Vol]20 U/SCvvklq13-66 [facility] HospitalComment on above:Performed By: #### CDP, CMPX, MG #### [facility] [employer] [address] [place] [address] Wine And Spirits Clerk: Dario Almanza MDBilirubin [Mass/Vol]0.6 mg/dLNormal0.00-1.20 [facility] HospitalComment on above:Performed By: #### CDP, CMPX, MG #### [facility] [address] [place] [address] Wine And Spirits Clerk: NEHEMIAS Barreraalcium [Mass/Vol]9.3 mg/dLNormal8.6-10.4[facility] HospitalComment on above:Performed By: #### CDP, CMPX, MG #### [facility] [address] [place] [address] Wine And Spirits Clerk: NEHEMIAS Barrerahloride [Moles/Vol]103 mmol/MWqnmhn85-344DzortWood County HospitalComment on above:Performed By: #### CDP, CMPX, MG #### [facility] [employer] [address] [place] [address] Wine And Spirits Clerk: Dario Almanza MDCO2 [Moles/Vol]28 mmol/VTwiolc81-47UaayiWood County HospitalComment on above:Performed By: #### CDP, CMPX, MG #### [place] [address] Wine And Spirits Clerk: NEHEMIAS Barrerareatinine [Mass/Vol]0.9 mg/dLNormal0.70-1.20 [facility] HospitalComment on above:Performed By: #### CDP, CMPX, MG #### [place] [address] Wine And Spirits Clerk: Dario Almanza MDGFR/1.73 sq M.predicted among non-blacks MDRD (S/P/Bld) [Vol rate/Area]mL/min/{1.73_m2}Normal>60[facility] County HospitalComment on above:Result Comment: These results are [...] #### CDP, CMPX, MG #### [facility] [address] [place] [address] Wine And Spirits Clerk: Dario Almanza MDGlucose [Mass/Vol]95 mg/sOGtsjjj74-40BmlixCorcoran District HospitalComment on above:Performed By: #### CDP, CMPX, MG #### [facility] [address] [place] [address] Wine And Spirits Clerk: Dario Almanza MDPotassium [Moles/Vol]3.4 mmol/LLow3.7-5.3MCorcoran District HospitalComment on above:Performed By: #### CDP, CMPX, MG #### [facility] [address] [place] [address] Wine And Spirits Clerk: Dario Almanza MDProtein [Mass/Vol]5.8 g/dLLow6.6-8.7[facility] HospitalComment on above:Performed By: #### CDP, CMPX, MG #### [facility] [place] [place] [address] Wine And Spirits Clerk: Dario Almanza MDSodium [Moles/Vol]138 mmol/XUiiwka030-154XsyvuWood County HospitalComment on above:Performed By: #### CDP, CMPX, MG #### [facility] [employer] [address] [place] [address] Wine And Spirits Clerk: Dario Almanza MDUrea nitrogen [Mass/Vol]15 mg/dLNormal8-23[facility] HospitalComment on above:Performed By: #### CDP, CMPX, MG #### [facility] [employer] [address] [place] [address] Wine And Spirits Clerk: Dario Almanza MDMagnesiumon 69-90-8524Czgdeskci [Mass/Vol]2.0 mg/dLNormal1.6-2.4[facility] County HospitalComment on above:Performed By: #### CDP, CMPX, MG #### [employer] [address] [phone] Wine And Spirits Clerk: RO Barrera, POCon 44-55-8312Dywo nitrogen [Mass/Vol]18 mg/dLNormal8-26[facility] CenterCT BRAIN PERFUSIONon 89-51-0465KE BRAIN PERFUSIONEXAMINATION: CTA OF THE HEAD AND [...] by: Edgar Montilla MD 07/14/24 Final resultNormalMercy Natividad Medical CenterCTA HEAD NECK W CONTRASTon 44-96-5134YVC HEAD NECK W CONTRASTEXAMINATION: CTA OF THE [...] Signed by: Edgar Montilla MD 07/14/24 Final resultNormalWood County HospitalCalcium, Ionic (POC)on 40-01-2122Tvwbugq [Moles/Vol]1.11 mmol/LLow1.15-1.33[facility] County HospitalCreatinine w/GFR, POCon 75-91-3229Psuvvmbmfz [Mass/Vol]1.0 mg/dLNormal 0.51-1.19[facility] County HospitalGFR/1.73 sq M.predicted among non- blacks MDRD (S/P/Bld) [Vol rate/Area]84 mL/min/{1.73_m2}Normal>60MerSaint Francis Memorial HospitalComment on above:Result Comment: These results [...] renal tubular secretion.Drug Scr, Abuse, Uron 07-14-2024 Amphetamine(s),UrPositiveAbnoalNEGWood County HospitalComment on above:Result Comment: Cutoff: 1000 ng/mLPerformed By: #### UAMIC, MARIA D #### [employer] [address] [place] [address] Wine And Spirits Clerk: Dario Almanza MDBenzodiazepine(s)PositiveAbnormprNEGWood County HospitalComment on above:Result Comment: Cutoff: 200 ng/ml Performed By: #### UAMIC, MARIA D #### [employer] [address] [place] [address] Wine And Spirits Clerk: NEHEMIAS Barreraannabinoid(s),UrPositiveAbnormalNEGWood County HospitalComment on above:Result Comment: Cutoff: 50 ng/mlPerformed By: #### UAMIC, MARIA D #### [address] [address] Wine And Spirits Clerk: Dario Almanza MDInterpretive InfoAssay provides rapid clinical screening only. Presumptive positive results forPeoples HospitalComment on above:Result Comment: legal purposes should be confirmed by another method. To request confirmation, please call the lab within 7 days of sample submission.Performed By: #### UAMIC, MARIA D #### [address] [address] Wine And Spirits Clerk: Dario Almanza MDBarbiturate(s),UrNegativeNoadventhealthNEGWood County HospitalComment on above:Result Comment: Cutoff: 200 ng/ml Performed By: #### UAMIC, MARIA D #### [address] [address] Wine And Spirits Clerk: NEHEMIAS Barreraocaine MetaboliteNegativeColorado SpringsNEGWood County HospitalComment on above:Result Comment: Cutoff: 300 ng/ml Performed By: #### UAMIC, MARIA D #### [address] [address] Wine And Spirits Clerk: Dario Almanza MDFentanyl, UrineNegativeNormalNEGWood County HospitalComment on above:Result Comment: Cutoff: 5 ng/mlPerformed By: #### UAMIC, MARIA D #### [address] [address] Wine And Spirits Clerk: ELISABETH Barreraethadone Ql (U)NegativeColorado SpringsNEGWood County HospitalComment on above:Result Comment: Cutoff: 300 ng/ml Performed By: #### UAMIC, MARIA D #### [facility] [address] [place] [address] Wine And Spirits Clerk: Dario Almanza MDOpiate(s), UrNegativeNoadventhealthNEGWood County HospitalComment on above:Result Comment: Cutoff: 300 ng/mlPerformed By: #### UAMIC, MARIA D #### [facility] [address] [place] [address] Wine And Spirits Clerk: Dario Almanza MDOxycodone, UrineNegativeNormalNEGWood County HospitalComment on above:Result Comment: Cutoff: 100 ng/ml Performed By: #### UAMIC, MARIA D #### [facility] [employer] [address] [place] [address] Wine And Spirits Clerk: Derrek Barreracyclidine, UrNegativeColorado SpringsNEGWood County HospitalComment on above:Result Comment: Cutoff: 25 ng/mlPerformed By: #### UAMIC, MARIA D #### [facility] [address] [place] [address] Wine And Spirits Clerk: Dario Almanza MDElectrolyteson 08-42-4736Qphlm gap [Moles/Vol]9 mmol/LNormal7-16[facility] County HospitalChloride [Moles/Vol]101 mmol/L Uncnkc33-757UwrrjWood County HospitalCO2 [Moles/Vol]32 mmol/SKfqw77-18 [facility] HospitalPotassium [Moles/Vol]4.0 mmol/LNormal3.5-4.5 [facility] Hospitalodium [Moles/Vol]141 mmol/KJlboqp397-045AtepdWood County HospitalGlucose (POC)on 30-28-2909Megpojm [Mass/Vol]172 mg/dL Vrcw03-224SzotyWood County HospitalHgb/Hct, POCon 02-81-6618Smxsaehsyh (Bld) [Volume fraction]43 %Wlsqet57-41QcaceWood County HospitalHemoglobin (Bld) [Mass/Vol]14.8 g/dSWojnck64.5-17.5[facility] Medical CenterLactic Acidon 55-55-1233Pagbdk Acid,Whole Bl1.7 mmol/LNormal0.7-2.1[facility] Medical CenterComment on above:Performed By: #### EDTOX, LACTIC #### [employer] [address] [phone] Wine And Spirits Clerk: Dario Almanza MDLactic Acid (POC)on 60-22-0481Hhggqpz [Moles/Vol]2.8 mmol/LHigh0.56-1.39[facility] Medical CenterMRI BRAIN W WO CONTRASTon 59-68-1959NHJ BRAIN W WO CONTRASTEXAMINATION: MRI OF THE [...] collection present. The proximal portions of the o[place] of Lopez demonstrate normal flow voids. ORBITS: [...] Signed by: Edgar Montilla MD 07/14/24 Final resultNormalChillicothe Hospitaltroke Panelon 38-13-2014Xyr. Basophil0.06 k/uLNormal0.00-0.20[facility] County HospitalComment on above:Performed By: #### STROKE #### [address] [address] Wine And Spirits Clerk: MDAbs. BruceImm.Granulocyte0.00 k/uLNormal0.00-0.30[facility] County HospitalComment on above:Performed By: #### STROKE #### [address] [address] Wine And Spirits Clerk: MDAbs. BruceNeutrophil (Seg)5.40 k/uLNormal1.50-8.10 [facility] HospitalComment on above:Performed By: #### STROKE #### [address] [address] Wine And Spirits Clerk: Dario Almanza MDBasophils/100 WBC (Bld)1 %Normal0-2[facility] Medical CenterComment on above:Performed By: #### STROKE #### [place] [address] Wine And Spirits Clerk: Dario Almanza MDEosinophils (Bld) [#/Vol]0.00 10*3/uLNormal 0.00-0.44[facility] County HospitalComment on above:Performed By: #### STROKE #### [address] [address] Wine And Spirits Clerk: KEATON Barreraosinophils/100 WBC (Bld)0 %Low1-4[facility] County HospitalComment on above:Performed By: #### STROKE #### [address] [address] Wine And Spirits Clerk: Dario Almanza MDImmature granulocytes/100 WBC (Bld)0 %Normal0 [facility] HospitalComment on above:Performed By: #### STROKE #### [address] [address] Wine And Spirits Clerk: Dario Almanza MDLymphocytes (Bld) [#/Vol]0.43 10*3/uLLow 1.10-3.70[facility] County HospitalComment on above:Performed By: #### STROKE #### [address] [address] Wine And Spirits Clerk: Mis Barreramphocytes/100 WBC (Bld)7 %Fwd34-25QjsflWood County HospitalComment on above:Performed By: #### STROKE #### [address] [address] Wine And Spirits Clerk: ELISABETH Barreraonocytes (Bld) [#/Vol]0.31 10*3/uLNormal 0.10-1.20[facility] County HospitalComment on above:Performed By: #### STROKE #### [address] [address] Wine And Spirits Clerk: ELISABETH Barreraonocytes/100 WBC (Bld)5 %Normal3-12[facility] County HospitalComment on above:Performed By: #### STROKE #### [address] [address] Wine And Spirits Clerk: ELISABETH Barreraorphology David (Bld) [Interp]NormalNormalWood County HospitalComment on above:Performed By: #### STROKE #### [address] [address] Wine And Spirits Clerk: Dario Madoff, MDNeutrophil (Seg)87 %Zzsd95-93SxigtWood County HospitalComment on above:Performed By: #### STROKE #### [address] [address] Wine And Spirits Clerk: Dario Almanza MDAnion gap [Moles/Vol]8 mmol/LLow9-16[facility] County HospitalComment on above:Performed By: #### STROKE #### [address] [address] Wine And Spirits Clerk: Dario Almanza MDCalcium [Mass/Vol]8.5 mg/dLLow8.6-10.4[facility] County HospitalComment on above:Performed By: #### STROKE #### [address] [address] Wine And Spirits Clerk: NEHEMIAS Barrerahloride [Moles/Vol]102 mmol/LHcrgda31-269BhfxtWood County HospitalComment on above:Performed By: #### STROKE #### [address] [address] Wine And Spirits Clerk: Dario Almanza MDCK [Catalytic activity/Vol]101 U/KEsbrlf89-324 [facility] HospitalComment on above:Performed By: #### STROKE #### [address] [address] Wine And Spirits Clerk: Dario Almanza MDCO2 [Moles/Vol]27 mmol/CUcbxbb20-69BgmhcWood County HospitalComment on above:Performed By: #### STROKE #### [address] [address] Wine And Spirits Clerk: Dario Almanza MDCreatinine [Mass/Vol]1.1 mg/dLNormal0.70-1.20 [facility] HospitalComment on above:Performed By: #### STROKE #### [address] [address] Wine And Spirits Clerk: Dario Almanza MDGFR/1.73 sq M.predicted among non-blacks MDRD (S/P/Bld) [Vol rate/Area]74 mL/min/{1.73_m2}Normal>60[facility] HospitalComment on above:Result Comment: These results are [...] renal tubular secretion.Performed By: #### STROKE #### [address] [address] Wine And Spirits Clerk: Dario Almanza MDGlucose [Mass/Vol]174 mg/zNIyss89-79OcvhwCorcoran District HospitalComment on above:Performed By: #### STROKE #### [facility] [employer] [address] [place] [address] Wine And Spirits Clerk: ELISABETH Barrerayoglobin [Mass/Vol]106 ng/vVLqxw53-47JziqmWood County HospitalComment on above:Performed By: #### STROKE #### [address] [address] Wine And Spirits Clerk: JAYME Barreraotassium [Moles/Vol]4.0 mmol/LNormal3.7-5.3 [facility] HospitalComment on above:Result Comment: SPECIMEN SLIGHTLY HEMOLYZED, RESULTS MAY BE ADVERSELY AFFECTED.Performed By: #### STROKE #### [address] [address] Wine And Spirits Clerk: VANESA Barreraodium [Moles/Vol]137 mmol/YUkxpjz478-099DafxeWood County HospitalComment on above:Performed By: #### STROKE #### [address] [address] Wine And Spirits Clerk: Brendan Barrera High Sens24 ng/LHigh0-22Wood County HospitalComment on above:Result Comment: High Sensitivity Troponin values cannot be compared with other Troponin methodologies.Performed By: #### STROKE #### [address] [address] Wine And Spirits Clerk: Dario Almanza MDUrea nitrogen [Mass/Vol]16 mg/dLNormal8-[facility] County HospitalComment on above:Performed By: #### STROKE #### [address] [address] Wine And Spirits Clerk: Judson Barrera Coag (Bld) [Time]22.1 sLow23.0-36.5[facility] County HospitalComment on above:Result Comment: IV Heparin Therapy Range: 66.0-92.0 secPerformed By: #### STROKE #### [address] [address] Wine And Spirits Clerk: Dario Almanza MDINR Coag (PPP) [Relative time]1.1 {INR}Normal [facility] HospitalComment on above:Result Comment: Therapeutic Range: Moderate Anticoagulant Intensity: INR = 2.0-3.0 High Anticoagulant Intensity: INR = 2.5-3.5Performed By: #### STROKE #### [address] [address] Wine And Spirits Clerk: JAYLAN Barrera Coag (PPP) [Time]13.6 aTvwhhg44.7-14.9[facility] HospitalComment on above:Performed By: #### STROKE #### [address] [address] Wine And Spirits Clerk: Dario Almanza MDErythrocyte distribution width (RBC) [Ratio]13.2 %Vgqoos56.8-14.4[facility] County HospitalComment on above:Performed By: #### STROKE #### [address] [address] Wine And Spirits Clerk: Dario Almanza MDHematocrit (Bld) [Volume fraction]42.4 %Normal 40.7-50.3MCorcoran District HospitalComment on above:Performed By: #### STROKE #### [address] [address] [employer] And Spirits Clerk: Dario Almanza MDHemoglobin (Bld) [Mass/Vol]13.9 g/dLNormal 13.0-17.0[facility] County HospitalComment on above:Performed By: #### STROKE #### [address] [address] Wine And Spirits Clerk: ELISABETH BarreraCH (RBC) [Entitic mass]29.6 ujCkagdm59.2-33.5 [facility] HospitalComment on above:Performed By: #### STROKE #### [address] [address] Wine And Spirits Clerk: ELISABETH BarreraCHC (RBC) [Mass/Vol]32.8 g/vGTcrpec97.4-34.8 [facility] HospitalComment on above:Performed By: #### STROKE #### [address] [address] Wine And Spirits Clerk: ELISABETH BarreraCV (RBC) [Entitic vol]90.2 aUDgvmef84.6-102.9 [facility] HospitalComment on above:Performed By: #### STROKE #### [address] [address] Wine And Spirits Clerk: Dario Almanza MDNRBC Automated0.0 per 100 WBCNormal0.0[facility] HospitalComment on above:Performed By: #### STROKE #### [address] [address] Wine And Spirits Clerk: Christel Barreratemelody mean volume (Bld) [Entitic vol]9.3 fL Normal8.1-13.5Wood County HospitalComment on above:Performed By: #### STROKE #### [address] [address] Wine And Spirits Clerk: Christel Barreratekaity (Bld) [#/Vol]267 10*3/xUKuxcpd842-499 [facility] HospitalComment on above:Performed By: #### STROKE #### [address] [address] Wine And Spirits Clerk: ARASELI BarreraBC (Bld) [#/Vol]4.70 10*6/uLNormal4.21-5.77 [facility] HospitalComment on above:Performed By: #### STROKE #### [place] [address] Wine And Spirits Clerk: RAVINDER BarreraBC (Bld) [#/Vol]6.2 10*3/uLNormal3.5-11.3MCorcoran District HospitalComment on above:Performed By: #### STROKE #### [place] [address] Wine And Spirits Clerk: NILA Barrera w/reflex to FT4on 47-91-4988Bvaqthy Stim. Horm.1.44 uIU/mLNormal0.27-4.20[facility] HospitalComment on above: Performed By: #### TSHX ####[place] [address] Lab Director: Lavon Barrera Scr, Bld, EDon 07-14-2024 Acetaminophen [Mass/Vol]ug/pCRpz09-32AsflkWood County HospitalComment on above:Performed By: #### EDTOX, LACTIC #### [facility] [address] [place] [address] Wine And Spirits Clerk: Dario Almanza MDEthanol [Mass/Vol]mg/dLNormal<10[facility] HospitalComment on above:Performed By: #### EDTOX, LACTIC #### [facility] [address] [place] [address] Wine And Spirits Clerk: Dario Almanza MDEthanol percent<0.010Normal<0.010[facility] HospitalComment on above:Performed By: #### EDTOX, LACTIC #### [facility] [address] [place] [address] Wine And Spirits Clerk: VANESA Barreraalicylate<0.8Kycdfw6.0-10.0[facility] County HospitalComment on above:Performed By: #### EDTOX, LACTIC #### [facility] [address] [place] [address] Wine And Spirits Clerk: Dario Almanza MDUrinalysis w/ Microon 45-56-1403SojohganLuha NormalABRAZO ARIZONA HEART HOSPITALEMeKaiser Fremont Medical CenterComment on above:Performed By: #### UAMIC, MARIA D #### [facility] [address] [place] [address] Wine And Spirits Clerk: Meghann Barrerairubin, SemiQt,UrNegativeNormalNEGWood County HospitalComment on above:Performed By: #### UAMIC, MARIA D #### [facility] [address] [place] [address] Wine And Spirits Clerk: Bismark Barrera, UrineNegativeNormalNEGWood County HospitalComment on above:Performed By: #### UAMIC, MARIA D #### [facility] [address] [place] [address] Wine And Spirits Clerk: NEHEMIAS Barreraasts5 TO 10 HYALINENormal0-8[facility] County HospitalComment on above:Result Comment: Reference range defined for non- centrifuged specimen.Performed By: #### UAMIC, MARIA D #### [address] [address] Wine And Spirits Clerk: NEHEMIAS Barreralarity (U)ClearNormalCLEARWood County HospitalComment on above:Performed By: #### UAMIC, MARIA D #### [address] [address] Wine And Spirits Clerk: NEHEMIAS Barreraolor (U)YellowNormalYELMerSaint Francis Memorial HospitalComment on above:Performed By: #### UAMIC, MARIA D #### [address] [address] Wine And Spirits Clerk: Dario Almanza MDEpithelial cells LM Ql (Urine sed)0 TO 2Normal 0-5[facility] HospitalComment on above:Performed By: #### UAMIC, MARIA D #### [address] [address] Wine And Spirits Clerk: Dario Almanza MDGlucose Ql (U)1+ mg/dLAbnormalNEGWood County HospitalComment on above:Performed By: #### UAMIC, MARIA D #### [address] [address] Wine And Spirits Clerk: Dario Almanza MDKetones Ql (U)NegativeNormalNEGWood County HospitalComment on above:Performed By: #### UAMIC, MARIA D #### [address] [address] Wine And Spirits Clerk: Dario Almanza MDLeukocyte esterase Test strip Ql (U)Negative NormalNEGWood County HospitalComment on above:Performed By: #### UAMIC, MARIA D #### [address] [address] Wine And Spirits Clerk: Dario Almanza MDNitrite,UrNegativeNormalNEGWood County HospitalComment on above:Performed By: #### UAREBECCA, MARIA D #### [facility] [address] [place] [address] Wine And Spirits Clerk: JAYME Barrera,Ur7.8Qaiupg5.0-8.0[facility] HospitalComment on above:Performed By: #### UAMIC, MARIA D #### [facility] [address] [place] [address] Wine And Spirits Clerk: JAYME Barrerarotein Ql (U)1+ mg/dLAbnormalNEGWood County HospitalComment on above:Performed By: #### ERI, MARIA D #### [address] [address] Wine And Spirits Clerk: VANESA Barrerapec. [place],Ur1.001Hgni8.005-1.030[facility] HospitalComment on above:Performed By: #### ERI, MARIA D #### [address] [address] Wine And Spirits Clerk: Sierra Barrera RBC's0 TO 1Ontroc1-7DepvqWood County HospitalComment on above:Result Comment: Reference range defined for non- centrifuged specimen.Performed By: #### ERI, MARIA D #### [address] [address] Wine And Spirits Clerk: Sierra Barrera WBC'sNoneNormal0-5[facility] HospitalComment on above:Performed By: #### ERI, MARIA D #### [facility] [address] [place] [address] Wine And Spirits Clerk: Dario Almanza MDUrobilinogen,UrNormalNormal0.0-1.0[facility]ginsport Medical CenterComment on above:Performed By: #### UAMIC, MARIA D #### [facility] [address] [place] [address] Wine And Spirits Clerk: Yareli Barrera Bld Gas,POCon 63-79-8768IBO6 (Bld) [Moles/Vol]31.9 mmol/LHigh22.0-29.0[facility] HospitalOxygen saturation in Blood45.4 %Low60.0-85.0[facility] HospitalpCO2, Ftoajr64.5 mm LfBnkimn98.0-51.0[facility] HospitalpH,Venous7.435 High7.320-7.430[facility] HospitalpO2, Qxgpee35.6 mm HgLow30.0-50.0 [facility] HospitalPositive Base Excess (calc)6.4 mmol/LHigh0.0-3.0 [facility] HospitalXR ABDOMEN (KUB) (SINGLE AP VIEW)on 32-35-1745ZA ABDOMEN (KUB) (SINGLE AP VIEW)EXAMINATION: ONE SUPINE [...] Signed by: Jt Gray MD 07/14/24 Final resultNormalMerSaint Francis Memorial HospitalXR CHEST PORTABLEon 07-14-2024 XR CHEST PORTABLEEXAMINATION: [...] by: Basil Witt DO 07/14/24 Final resultNormalMercy Natividad Medical CenterCalcium [Mass/volume] in Serum or PlasmaOrdered By: Janae Jose on 47-10-6415Fermasu [Mass/Vol]9.0 mg/dL 8.6-10.3FBucyrus Community HospitalCarbon dioxide, total [Moles/volume] in Serum or PlasmaOrdered By: Janae Jose on 07-82-0482MV0 [Moles/Vol]30.3 mmol/L21.0-31.0[facility] HospitalChloride [Moles/volume] in Serum or PlasmaOrdered By: Janae Jose on 71-45-2719Tikwwrde [Moles/Vol]98 mmol/L 98-107[facility] HospitalCreatinine [Mass/volume] in Serum or PlasmaOrdered By: Janae Jose on 82-60-7347Kzplqhklqm [Mass/Vol]0.97 mg/dL 0.70-1.30[facility] HospitalGlucose [Mass/volume] in Serum or PlasmaOrdered By: Janae Jose on 65-94-3040Xgysldq [Mass/Vol]105 mg/kD11-456 [facility] HospitalComment on above:ADA recommended reference rangeRandom Glucose Reference Range is dependent on time and content of last meal. Glucose of more than 200 mg/dL in a nonstressed, ambulatory subject supports the diagnosisof Diabetes Mellitus.No Panel InformationOrdered By: Janae Jose on 40-14-0033Kouryizby GFR (CKD-EPI)> 60.0 mL/MinSt. Elizabeth HospitalPharmacy Creatinine Clearance (Chem82.90[facility]. [facility] HospitalPotassium [Moles/volume] in Serum or PlasmaOrdered By: Janae Jose on 01-39-2587Dsibcoyad [Moles/Vol]4.4 mmol/L3.5-5.1FMarietta Memorial Hospitalerum or plasma anion gap determinationOrdered By: Janae Jose on 87-63-9427Qoqlj gap [Moles/Vol]8.1 mmol/L6.0-15.0[facility]-Rittman Hospitalodium [Moles/volume] in Serum or PlasmaOrdered By: Janae Jose on 79-20-1691Dclire [Moles/Vol]132 mmol/I414-870CqfatzzzmSt. Elizabeth HospitalUrea nitrogen [Mass/volume] in Serum or PlasmaOrdered By: Janae Jose on 83-78-7071Rmnk nitrogen [Mass/Vol]25 mg/dL7-25[facility] Ammonia [Moles/volume] in PlasmaOrdered By: Víctor Agrawal on 14-78-0175Jraafis (P) [Moles/Vol]22 umol/H89-36HgnrzjlrzSt. Elizabeth HospitalBasophils Auto (Bld) [#/Vol]Ordered By: Magdy Douglass on 74-16-4629Jwemgrfrm (Bld) [#/Vol] 0.0 10*3/uL0.0-0.2FBucyrus Community HospitalBasophils/100 WBC Auto (Bld) Ordered By: Magdy Douglass on 23-57-2450Wujcunfwl/100 WBC (Bld)0.[address] [facility] [facility] HospitalEosinophils Auto (Bld) [#/Vol]Ordered By: Magdy Douglass on 84-88-4847Ibamykfkyha (Bld) [#/Vol]0.0 10*3/uL0.0-0.45 [facility] HospitalEosinophils/100 WBC Auto (Bld)Ordered By: Magdy Douglass on 83-70-9198Qutziodjsof/100 WBC (Bld)0.0 %.[facility]. [facility] HospitalErythrocyte distribution width Auto (RBC) [Ratio]Ordered By: Magdy Douglass on 29-87-4091Hknkofwnwki distribution width (RBC) [Ratio]16.5 %12.0-14.8[facility] HospitalFolate [Mass/volume] in Serum or PlasmaOrdered By: Janae Jose on 27-28-2922Zgrkmu [Mass/Vol]9.7 ng/mL>5.9 [facility] HospitalComment on above:Folate reference range: >5.9 ng/mlThe WHO technical consultation on folate and vitamin s81aesrmclcbzxu has determined that folate concentrations lessthan 4 ng/ml are considered deficient. Hematocrit Auto (Bld) [Volume fraction]Ordered By: Magdy Douglass on 21-51-3236Dahckzvwdx (Bld) [Volume fraction]45.0 %38.8-50.0[facility] HospitalHemoglobin [Mass/volume] in BloodOrdered By: Magdy Douglass on 14-48-7181Kpbpeoxgzl (Bld) [Mass/Vol]14.8 g/dL13.0-17.0[facility] HospitalLeukocytes [#/volume] corrected for nucleated erythrocytes in Blood by Automated counOrdered By: Magdy Douglass on 66-99-0977GIS corrected for nucl RBC Auto (Bld) [#/Vol]9.6 10*3/uL4.1-10.5FBucyrus Community HospitalLymphocytes Auto (Bld) [#/Vol]Ordered By: Magdy Douglass on 05-04-2024 Lymphocytes (Bld) [#/Vol]0.5 10*3/uL1.00-4.8[facility] Lymphocytes/100 WBC Auto (Bld)Ordered By: Magdy Douglass on 05-04-2024 Lymphocytes/100 WBC (Bld)4.9 %.[facility] Auto (RBC) [Entitic mass]Ordered By: Magdy Douglass on 22-90-4867LFA (RBC) [Entitic mass]29.8 pg27.5-35.2FDayton Osteopathic HospitalHC Auto (RBC) [Mass/Vol] Ordered By: Magdy Douglass on 75-29-0537WCOX (RBC) [Mass/Vol]32.9 g/dL 32.5-35.6FBucyrus Community HospitalMCV Auto (RBC) [Entitic vol]Ordered By: Magdy Douglass on 90-36-5210ZSG (RBC) [Entitic vol]90.4 fL83.5-101 [facility] HospitalMonocytes Auto (Bld) [#/Vol]Ordered By: Magdy Douglass on 16-10-0751Twxjggpza (Bld) [#/Vol]0.3 10*3/uL0.0-0.8[facility] HospitalMonocytes/100 WBC Auto (Bld)Ordered By: Magdy Douglass on 39-69-5131Obohnwrhy/100 WBC (Bld)3.0 %.[facility] Neutrophils Auto (Bld) [#/Vol]Ordered By: Magdy Douglass on 05-04-2024 Neutrophils (Bld) [#/Vol]8.9 10*3/uL1.8-7.7FBucyrus Community Hospital Neutrophils/100 WBC Auto (Bld)Ordered By: Magdy Douglass on 05-04-2024 Neutrophils/100 WBC (Bld)92.0 %.[facility] HospitalNucleated erythrocytes [Presence] in Blood by Automated countOrdered By: Magdy Douglass on 46-48-6653Drrgichzm RBC Auto Ql (Bld)0.0 /100{WBC}0-0.5FBucyrus Community HospitalPlatelet mean volume Auto (Bld) [Entitic vol]Ordered By: Magdy Douglass on 24-58-9322Cnfybecl mean volume (Bld) [Entitic vol]6.5 fL6.6-10.1 [facility] HospitalPlatelets Auto (Bld) [#/Vol]Ordered By: Magdy Douglass on 95-31-7494Ibvofilwx (Bld) [#/Vol]417 10*3/sM853-124GiwaftdlwSt. Elizabeth HospitalRBC Auto (Bld) [#/Vol]Ordered By: Magdy Douglass on 66-77-6516NJC (Bld) [#/Vol]4.97 10*6/uL3.90-5.60[facility] HospitalThyrotropin [Units/volume] in Serum or PlasmaOrdered By: Janae Jose on 87-50-5373RKY Qn5.50 m[IU]/L0.45-5.33[facility] HospitalVitamin B12 ser/plasOrdered By: Janae Jose on 36-00-9483Cqztipdzv (Vitamin B12) [Mass/Vol]500 pg/lE919-003QhwqjhzigSt. Elizabeth HospitalWBC Auto (Bld) [#/Vol]Ordered By: Magdy Douglass on 43-92-3227KLB (Bld) [#/Vol]9.6 10*3/uL 4.1-10.5FBucyrus Community HospitalAlanine aminotransferase [Enzymatic activity/volume] in Serum or PlasmaOrdered By: Magdy Douglass on 05-03-2024 ALT [Catalytic activity/Vol]14 U/L7-52[facility] HospitalAlbumin [Mass/volume] in Serum or Plasma by Bromocresol green (BCG) dye binding metho Ordered By: Magdy Douglass on 56-83-3031Cymdskr BCG dye [Mass/Vol]3.1 g/dL 3.5-5.7FBucyrus Community HospitalAlkaline phosphatase [Enzymatic activity/volume] in Serum or PlasmaOrdered By: Magdy Douglass on 05-03-2024 ALP [Catalytic activity/Vol]131 U/U89-677EfjcnvtkwSt. Elizabeth Hospital Aspartate aminotransferase [Enzymatic activity/volume] in Serum or PlasmaOrdered By: Magdy Douglass on 21-17-3692WHZ [Catalytic activity/Vol]12 U/L13-39 [facility] HospitalBilirubin.total [Mass/volume] in Serum or PlasmaOrdered By: Magdy Douglass on 52-81-1862Wpwmdwsqg [Mass/Vol]0.4 mg/dL 0.3-1.0[facility] HospitalGlobulin Calc (S) [Mass/Vol]Ordered By: Magdy Douglass on 31-80-1816Fomqmger (S) [Mass/Vol]2.8 g/dLSt. Elizabeth HospitalProtein [Mass/volume] in Serum or PlasmaOrdered By: Magdy Douglass on 51-52-5184Potndlj [Mass/Vol]5.9 g/dL6.4-8.9W[facility]sworth-Rittman Hospitalerum or plasma albumin/globulin mass ratioOrdered By: Magdy Douglass on 85-45-7156Qhrlesy/Globulin [Mass ratio]1.1 {ratio}[facility]. [facility] HospitalC reactive protein [Mass/volume] in Serum or Plasma Ordered By: Magdy Douglass on 51-13-1120THW [Mass/Vol]2.5 mg/dL0.0-0.5 [facility] HospitalLactate [Moles/volume] in Serum or Plasma Ordered By: Magdy Douglass on 71-98-3281Hvkekbj [Moles/Vol]0.6 mmol/L0.5-2.2 [facility] HospitalMagnesium [Mass/volume] in Serum or Plasma Ordered By: Magdy Douglass on 78-24-4352Pugcqppwr [Mass/Vol]2.1 mg/dL1.9-2.7 [facility] HospitalTroponin I.cardiac [Mass/volume] in Serum or Plasma by Detection limit <= 0.01 ng/Ordered By: Janae Jose on 05-02-2024 Troponin I.cardiac DL <= 0.01 ng/mL [Mass/Vol]74.8 pg/mL0.0-20.0[facility] HospitalComment on above:Critical Result : Called to and read back by: JAYLAN YAO at: 05/02/2024 15:02:51 by:GABACETAMINOPHENon 11-24-2022 Acetaminophen [Mass/Vol]ug/mROpcdhp56.0-30.0The [facility] HospitalComment on above:Performed By: #### SALYC, ACET, CMP, ETH #### [facility] [address] [place] [address] Dr. Renny West AUTO DIFFon 00-37-7615JBFG #0.0 103/ulNormal0.0-0.1The [facility] HospitalComment on above:Performed By: #### CBC #### [facility] [address] [place] [address] Dr. Renny Yousifsophils/100 WBC (Bld)0.8 %Normal0.2-2.0The [facility] Comment on above:Performed By: #### CBC #### [facility] [address] [place] [address] Dr. Renny Triplett #0.3 103/ulNormal0.0-0.7The [facility] HospitalComment on above: Performed By: #### CBC #### [facility] [address] [place] [address] Dr. Yilan ChangEosinophils/100 WBC (Bld)6.2 %Normal0.9-7.0The [facility] Comment on above:Performed By: #### CBC #### [facility] [address] [place] [address] Dr. Renny Rinaldirythrocyte distribution width (RBC) [Ratio]14.8 %Jqwnln40.0-15.0 [facility] SystemComment on above:Performed By: #### CBC #### [facility] [address] [place] [address] Dr. Renny AzevedoHematocrit (Bld) [Volume fraction]38.6 %Critically low42.0-54.0 The [facility] HospitalComment on above:Performed By: #### CBC #### [facility] [address] [place] [address] Dr. Renny AzevedoHemoglobin (Bld) [Mass/Vol]12.6 g/dLCritically low14.0-18.0The [facility] HospitalComment on above:Performed By: #### CBC #### [facility] [address] [place] [address] Dr. Renny Pa #0.01 10e3/ulNormal0.00-0.03The [facility] HospitalComment on above:Performed By: #### CBC #### [facility] [address] [place] [address] Dr. Renny AzevedoIG %0.2 %Normal0.0-0.5The [facility] HospitalComment on above: Performed By: #### CBC #### [facility] [address] [place] [address] Dr. Renny ClarosH #1.4 103/ulNormal1.2-3.8The [facility] HospitalComment on above:Performed By: #### CBC #### [facility] [address] [place] [address] Dr. Renny Reedmphocytes/100 WBC (Bld)28.1 %Ibytdd91.5-60.0The [facility] HospitalComment on above:Performed By: #### CBC #### [facility] [address] [address] [address] Renny Geronimo DIFF REQNONormalThe [facility] HospitalComment on above: Performed By: #### CBC #### [facility] [address] [place] [address] Dr. Renny Emerson (RBC) [Entitic mass]31.0 elJwapgz41.9-34.0The [facility] HospitalComment on above:Performed By: #### CBC #### [facility] [address] [place] [address] Dr. Renny Emerson (RBC) [Mass/Vol]32.6 g/vSGtnxzp58.9-35.2The [facility] HospitalComment on above:Performed By: #### CBC #### [facility] [address] [place] [address] Dr. Renny Emerson (RBC) [Entitic vol]95.1 fLCritically high80.0-94.0The [facility] HospitalComment on above:Performed By: #### CBC #### [facility] [address] [place] [address] Dr. Renny Cook #0.3 103/ulNormal0.3-0.8The [facility] HospitalComment on above:Performed By: #### CBC #### [facility] [address] [place] [address] Dr. Renny Calvilloocytes/100 WBC (Bld)5.8 %Normal1.7-12.0The [facility] Comment on above:Performed By: #### CBC #### [facility] [address] [place] [address] Dr. Renny Guaman #3.0 103/ulNormal1.4-6.5The [facility] HospitalComment on above:Performed By: #### CBC #### [facility] [address] [place] [address] Dr. Renny Chanutrophils/100 WBC (Bld)58.9 %Qewcya98.0-75.0The [facility] HospitalComment on above:Performed By: #### CBC #### [facility] [address] [address] [address] Renny AzevedoPlatelet mean volume (Bld) [Entitic vol]8.8 fLCritically low 9.5-13.5The [facility] HospitalComment on above:Performed By: #### CBC #### [facility] [address] [address] [address] Renny AzevedoPLT260 103/ebYgkamz856-615Slm [facility] HospitalComment on above: Performed By: #### CBC #### [facility] [address] [address] [address] Renny AzevedoRBC4.06 106/ulCritically low4.70-6.10The [facility] HospitalComment on above:Performed By: #### CBC #### [facility] [address] [place] [address] Dr. Renny AzevedoWBC5.0 103/ulNormal4.0-11.0The [facility] HospitalComment on above: Performed By: #### CBC #### [facility] [address] [place] [address] Dr. Renny AzevedoCT CSPINE WO CONon 92-52-5786CN CSPINE WO CONEXAM: CT CSPINE WO CON 11/24/2022 4:20 AM EST [id number] [...] Electronically authenticated by: VIC ADAMES Date: 2022-11-24 05:42NormalThThe [facility] System HospitalCT FACIAL BONES WO CONon [id number] FACIAL BONES WO CON EXAMINATION: CT HEAD [...] Electronically authenticated by: ANNA RICO Date: 2022-11-24 05:43[facility] CenterDRUG SCREEN RAPID (URINE)on 22-11-9061BIKMxugiikmZhoweeac NEGATIVEBlanchard Valley Health SystemComment on above:Performed By: #### DRUGRPD #### [facility] [address] [place] [address] Dr. Renny AzevedoBARNegativeNormalNEGATIVEBlanchard Valley Health SystemComment on above: Performed By: #### DRUGRPD #### [facility] [address] [place] [address] Dr. Renny AzevedoBUPNegativeNormalNEGATIVEBlanchard Valley Health SystemComhealthsource [place] on above: Performed By: #### DRUGRPD #### [facility] [address] [place] [address] Dr. Renny AzevedoBZONegativermalNEGATIVEBlanchard Valley Health SystemComment on above: Performed By: #### DRUGRPD #### [facility] [address] [place] [address] Dr. Renny AzevedoCOCPositiveAbnoadventhealthNEGATIVEBlanchard Valley Health SystemComhealthsource [place] on above: Performed By: #### DRUGRPD #### [facility] [address] [place] [address] Dr. Renny MorrisonPeoples HospitalComment on above: Result Comment: AMP (Amphetamine): 500ng/mL, BAR (Barbituates): 200 ng/mL, BZO (Benzodiazepines): 150 ng/mL, BUP (Buprenorphine): 10 ng/mL, SHAYE (Cocaine): 150 ng/mL, mAMP (Methamphetamine): 500 ng/mL, MTD (Methadone): 200 ng/mL, OPI (Opiates): 100 ng/mL, OXY (Oxycodone): 100 ng/mL, PCP (Phencyclidine): 25 ng/mL, PPX (Propoxyphene): 300 ng/mL, THC (Cannabinoids): 50 ng/mL, TCA (Trycyclic Antidepressants): 300 ng/mLPerformed By: #### DRUGRPD #### [facility] [address] [address] [address] Renny AzevedoDRUG CUT HEADERDRUG CLASS TEST SYSTEM CUT-OFF CONCENTRATIONS ARE FOLLOWS:NormalThe [facility] HospitalComment on above:Performed By: #### DRUGRPD #### [facility] [address] [address] [address] Renny AzevedomAMPPositiveAbnormalNEGATIVEBlanchard Valley Health SystemComment on above:Performed By: #### DRUGRPD #### [facility] [address] [address] [address] Renny AzevedoMTDNegativeNormalNEGATIVEBlanchard Valley Health SystemComment on above: Performed By: #### DRUGRPD #### [facility] [address] [address] [address] Renny SkyINegativeNormalNEGATIVEBlanchard Valley Health SystemComment on above: Performed By: #### DRUGRPD #### [facility] [address] [address] [address] Renny AzevedoOXYNegativeNormalNEGATIVEBlanchard Valley Health SystemComment on above: Performed By: #### DRUGRPD #### [facility] [address] [address] [address] Renny AzevedoPCPNegativeNormalNEGATIVEBlanchard Valley Health SystemComment on above: Performed By: #### DRUGRPD #### [facility] [address] [address] [address] Renny AzevedoPPXNegativeNormalNEGATIVEBlanchard Valley Health SystemComment on above: Performed By: #### DRUGRPD #### [facility] [address] [address] [address] Renny AzevedoTCANegativeNormalNEGATIVEBlanchard Valley Health SystemComment on above: Performed By: #### DRUGRPD #### [facility] [address] [address] [address] Renny AzevedoTHCNegativeNormalNEGATIVEBlanchard Valley Health SystemComment on above: Performed By: #### DRUGRPD #### [facility] [address] [place] [address] Dr. Renny Cooper (BLD ALC)on 37-05-1429ZQO NOTENOTE: 80 mg/dl is the legal limit for a blood alcohol levelNoBrown Memorial HospitalComment on above: Performed By: #### ETH #### [facility] [address] [place] [address] Dr. Renny Stevensonanol [Mass/Vol]169 mg/dLNoBrown Memorial HospitalComment on above:Performed By: #### ETH #### [facility] [address] [place] [address] Dr. Renny Laura NOTENOTE: 80 mg/dl is the legal limit for a blood alcohol levelNoBrown Memorial HospitalComment on above:Performed By: #### SALYC, ACET, CMP, ETH #### [facility] [address] [place] [address] Dr. Renny Stevensonanol [Mass/Vol]239 mg/dLNoBrown Memorial HospitalComment on above:Performed By: #### SALYC, ACET, CMP, ETH #### [facility] [address] [place] [address] Dr. Renny Hitchcock 14(COMP METB)on 18-11-0709Zvlnkns [Mass/Vol]4.2 g/dLNormal 3.4-5.0The [facility] Hospitalment on above:Performed By: #### SALYC, ACET, CMP, ETH #### [facility] [address] [place] [address] Dr. Renny AzevedoAlbumin/Globulin [Mass ratio]1.3 {ratio}NormalThe [facility] on above:Performed By: #### SALYC, ACET, CMP, ETH #### [facility] [address] [place] [address] Dr. Renny LanierP [Catalytic activity/Vol]99 U/NFyvdik71-464Rrb [facility] on above:Performed By: #### SALYC, ACET, CMP, ETH #### [facility] [address] [address] [address] Renny Cummins [Catalytic activity/Vol]157 U/LCritically jhhp05-37Ezi [facility] HospitalComment on above:Performed By: #### SALYC, ACET, CMP, ETH #### [facility] [address] [address] [address] Renny Wangon gap [Moles/Vol]10.0 mmol/LNormalThe [facility] Comment on above:Performed By: #### SALYC, ACET, CMP, ETH #### [facility] [address] [place] [address] Dr. Renny AzevedoAST [Catalytic activity/Vol]362 U/LCritically hwav98-46Auy [facility] HospitalComment on above:Performed By: #### SALYC, ACET, CMP, ETH #### [facility] [address] [place] [address] Dr. Renny AzevedoBilirubin [Mass/Vol]0.3 mg/dLNormal0.2-1.0[facility] Comment on above:Performed By: #### SALYC, ACET, CMP, ETH #### [facility] [address] [place] [address] Dr. Renny AzevedoCalcium [Mass/Vol]8.7 mg/dLNormal8.5-10.1[facility] Comment on above:Performed By: #### SALYC, ACET, CMP, ETH #### [facility] [address] [place] [address] Dr. Renny AzevedoChloride [Moles/Vol]92 mmol/LCritically zqr66-240Gty [facility] HospitalComment on above:Performed By: #### SALYC, ACET, CMP, ETH #### [facility] [address] [place] [address] Dr. Renny AzevedoCO2 [Moles/Vol]30.4 mmol/KUqngxp82.0-32.0[facility] Comment on above:Performed By: #### SALYC, ACET, CMP, ETH #### [facility] [address] [place] [address] Dr. Renny AzevedoCreatinine [Mass/Vol]1.60 mg/dLCritically high0.70-1.30The [facility] Hospitalment on above:Performed By: #### SALYC, ACET, CMP, ETH #### [facility] [address] [address] [address] Renny RinaldiGFR-AF AJTJZSEZ92 mL/min/1.53n9Gxqzhevuov low>=60The [facility] HospitalComment on above:Performed By: #### SALYC, ACET, CMP, ETH #### [facility] [address] [address] [address] Renny RinaldiGFR-NON AF VRYQGSZL07 mL/min/1.42d0Atlsdmcxvf low>=60The [facility] HospitalComment on above:Performed By: #### SALYC, ACET, CMP, ETH #### [facility] [address] [address] [address] Renny AzevedoGlobulin (S) [Mass/Vol]3.2 g/dLNormalThe [facility] HospitalComment on above:Performed By: #### SALYC, ACET, CMP, ETH #### [facility] [address] [place] [address] Dr. Renny AzevedoGlucose [Mass/Vol]82 mg/fPGnfbzh16-059Pil [facility] Comment on above:Performed By: #### SALYC, ACET, CMP, ETH #### [facility] [address] [address] [address] Renny AzevedoPotassium [Moles/Vol]3.4 mmol/LCritically low3.5-5.1The [facility] Hospitalment on above:Performed By: #### SALYC, ACET, CMP, ETH #### [facility] [address] [address] [address] Renny AzevedoProtein [Mass/Vol]7.4 g/dLNormal6.4-8.2The [facility] Comment on above:Performed By: #### SALYC, ACET, CMP, ETH #### [facility] [address] [address] [address] Renny AzevedoSodium [Moles/Vol]129 mmol/LCritically puv104-242Weq [facility] HospitalComment on above:Performed By: #### SALYC, ACET, CMP, ETH #### [facility] [address] [address] [address] Renny Miles nitrogen [Mass/Vol]17.0 mg/dLNormal7.0-18.0The [facility] HospitalComment on above:Performed By: #### SALYC, ACET, CMP, ETH #### [facility] [address] [address] [address] Renny Miles nitrogen/Creatinine [Mass ratio]10.6 mg/mgNormalThe [facility] HospitalComment on above:Performed By: #### SALYC, ACET, CMP, ETH #### [facility] [address] [address] [address] Renny AzevedoSALICYLATEon 45-94-8535RXMPFBWJRW6.7 mg/dLNormal<=19.9The [facility] HospitalComment on above:Performed By: #### SALYC, ACET, CMP, ETH #### [facility] [address] [place] [address] Dr. Renny AzevedoCT LUMBAR SPINE WO CONTRASTon 05-13-3860VW LUMBAR SPINE WO CONTRASTEXAMINATION:CT OF THE LUMBAR [...] L4-L5 and L5-S1.3. Facet arthropathy.Interpreted by:VANESA Tavaresigned by:Mendel Tavares D1//18Final resultNormalSelect Medical [facility], AvonDISCHARGE SUMMARYon 02-05-[address] [address] DISCHARGE SUMMARYPATIENT NAME: AARON OLIVAREZ : 1960MED REC NO: [id number] ROOM: 0130ACCOUNT NO: [id number] ADMIT DATE: 01/29/2018PROVIDER: Elian Mcghee DISCH DATE:HISTORY [...] . With this, he is admitted to [facility] from [place].PAST PSYCHIATRIC HISTORY: History of major depression and [...] patient [facility]. [facility]ELIAN INDURTID: 02/05/2018 9:02:31 SI/V_OPSKU_TJob#: [id number] Doc#: [id number]:NormalMercy [facility] with Diffon 45-72-2836Fvk. Basophil0.00 k/uLNormal0.0-0.2[facility]'S HospitalComment on above: Performed By: #### CP, LIPR, TSHX, CDP ####[address] [address] #### T3, T4 ####[address] [address] Abs.Neutrophil (Seg)1.83 k/uLNormal 1.3-9.1[facility]'S HospitalComment on above:Performed By: #### CP, LIPR, TSHX, CDP ####[address] [address] #### T3, T4 ####[facility] [address] [place] [address] Basophils/100 WBC Auto (Bld)0 %Normal0-2[facility]'S HospitalComment on above:Performed By: #### CP, LIPR, TSHX, CDP ####[address] [address] #### T3, T4 ####[facility] [address] [place] [address] Blood morphologyNormalNormalMercy Health St. Charles HospitalComment on above:Result Comment: Performed at [facility] [address] [place] [address] Performed By: #### CP, LIPR, TSHX, CDP ####[address] [address] #### T3, T4 ####[address] [address] Jugqnzyejhq4.04 10*3/uL Normal0.0-0.4[facility]. Charles HospitalComment on above:Performed By: #### CP, LIPR, TSHX, CDP ####[address] [address] #### T3, T4 ####[address] [address] Eosinophils/100 leukocytes1 %Normal0-4[facility] Charles HospitalComment on above:Performed By: #### CP, LIPR, TSHX, CDP ####[address] [place] [address] #### T3, T4 ####[address] [address] Lymphocytes 1.87 10*3/uLNormal1.0-4.8[facility] Charles HospitalComhealthsource sag[place] on above:Performed By: #### CP, LIPR, TSHX, CDP ####[address] [address] #### T3, T4 ####[address] [address] Lymphocytes/100 cjkotdtzfy63 %Vjwq00-50IfuhfMercy Health St. Charles HospitalComment on above:Performed By: #### CP, LIPR, TSHX, CDP ####[address] [address] #### T3, T4 ####[address] [address] Monocytes0.16 10*3/uLNormal0.1-1.3MercBrown Memorial HospitalComment on above: Performed By: #### CP, LIPR, TSHX, CDP ####[address] [address] #### T3, T4 ####[address] [address] Monocytes/100 leukocytes4 %Normal1-7[facility] Charles HospitalComment on above:Performed By: #### CP, LIPR, TSHX, CDP ####[address] [address] #### T3, T4 ####[address] [address] Neutrophil (Seg)47 %Rufgle64-54FflsgMercy Health St. Charles HospitalComment on above: Performed By: #### CP, LIPR, TSHX, CDP ####[address] [address] #### T3, T4 ####[address] [address] Erythrocyte distribution width Auto Ratio (RBC)13.8 %Nfaery13.5-14.9[facility] HospitalComhealthsource [place] on above:Performed By: #### CP, LIPR, TSHX, CDP ####[address] [address] #### T3, T4 ####[address] [address] Erythrocytes (RBC)4.72 10*6/uLNormal4.5-5.9[facility] Charles HospitalComment on above:Performed By: #### CP, LIPR, TSHX, CDP ####[address] [address] #### T3, T4 ####[address] [address] Hematocrit (HCT)42.2 %Itjqwc26-77MoyarMercy Health St. Charles HospitalComment on above: Performed By: #### CP, LIPR, TSHX, CDP ####[address] [address] #### T3, T4 ####[address] [address] Hemoglobin mass conc (Bld)13.9 g/dLNormal 13.5-17.5[facility] Charles HospitalComment on above:Performed By: #### CP, LIPR, TSHX, CDP ####[address] [address] #### T3, T4 ####[address] [phone] mmKaizuk29-44GrtphMercy Health St. Charles HospitalComment on above:Performed By: #### CP, LIPR, TSHX, CDP ####[address] [address] #### T3, T4 ####[address] [address] MCHC mass conc (RBC)33.0 g/uSXkicqr73-[address] Charles HospitalComment on above:Performed By: #### CP, LIPR, TSHX, CDP ####[address] [place] [phone]#### T3, T4 ####[address] [phone] pXVbxedn70-535CeqmuMercy Health St. Charles HospitalComment on above:Performed By: #### CP, LIPR, TSHX, CDP ####[address] [place] [address] #### T3, T4 ####[address] [address] Platelet mean volume (PMV)7.3 fLNormal 6.0-12.0[facility] Charles HospitalComment on above:Performed By: #### CP, LIPR, TSHX, CDP ####[address] [address] #### T3, T4 ####[address] [phone] 10*3/rHDsklio042-645ZulakMercy Health St. Charles Hospital Comment on above:Performed By: #### CP, LIPR, TSHX, CDP ####[address] [address] #### T3, T4 ####[address] [address] WBC (Leukocytes)3.9 10*3/uLNormal3.5-11.0[facility] Charles HospitalComment on above:Performed By: #### CP, LIPR, TSHX, CDP ####[address] [place] [address] #### T3, T4 ####[address] [address] Auto Diff PerformedNOT REPORTEDNormalMercy Eidson Road HospitalComment on above:Performed By: #### CP, LIPR, TSHX, CDP ####[address] [address] #### T3, T4 ####[address] [address] Erythrocyte morphologyNOT REPORTEDNormProtestant Deaconess HospitalComment on above:Performed By: #### CP, LIPR, TSHX, CDP ####[address] [address] #### T3, T4 ####[address] [address] Erythrocytes (RBC)NOT REPORTEDNoWayne HealthCare Main CampusComment on above:Performed By: #### CP, LIPR, TSHX, CDP ####[address] [address] #### T3, T4 ####[address] [address] Granulocytes/100 WBC (Bld)NOT REPORTEDNormal0.00-0.30[facility] Comment on above:Performed By: #### CP, LIPR, TSHX, CDP ####[address] [place] [address] #### T3, T4 ####[address] [place] [address] Immature granulocytes #/vol (Bld)NOT CYSUKFTNQqpdaw3Qcgmc[address] [place], [place] [address]Comment on above: Performed By: #### CP, LIPR, TSHX, CDP ####[address] [address] #### T3, T4 ####[address] [phone] REPORTEDNoWayne HealthCare Main CampusComment on above:Performed By: #### CP, LIPR, TSHX, CDP ####[address] [address] #### T3, T4 ####[address] [place], [place] [phone] MorphologyNOT REPORTEDNoWayne HealthCare Main CampusComment on above:Performed By: #### CP, LIPR, TSHX,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 treatmentWadsworth-Rittman Hospitaltart: 33-13-8937PgfhrduozWadsworth-Rittman Hospitaltart: 53-29-3339LtbqwbuxptncJjybzcxpyWadsworth-Rittman Hospitaltart: 05-01-2024 [address] admissionSt[address] [facility] HospitalAmphetamines [Presence] in Urine by Screen methodSt. Elizabeth HospitalAnion gap measurement [facility] HospitalBarbiturates [Presence] in Urine by Screen methodSt. Elizabeth HospitalBasophils [#/volume] in Blood by Automated countSt. Elizabeth HospitalBasophils/100 leukocytes in Blood by Automated [facility] HospitalBenzodiazepines [Presence] in UrineSt. Elizabeth HospitalBenzoylecgonine [Presence] in UrineSt. Elizabeth HospitalCannabinoids [Presence] in Urine by Screen [facility] HospitalDrugs identified in UrineSt. Elizabeth HospitalEosinophils/100 leukocytes in Blood by Automated count [facility] HospitalErythrocyte distribution width [Ratio] by Automated countSt. Elizabeth HospitalErythrocytes [#/volume] in Blood [facility] HospitalGlomerular filtration rate [Volume Rate/Area] in Serum, Plasma or Blood by CreatinineSt. Elizabeth Hospital Hematocrit [Volume Fraction] of BloodSt. Elizabeth HospitalHemoglobin [Mass/volume] in BloodSt. Elizabeth HospitalLegionella pneumophila Ag [Presence] in UrineSt. Elizabeth HospitalLeukocytes [#/volume] corrected for nucleated erythrocytes in Blood by Automated counSt. Elizabeth HospitalLeukocytes [#/volume] in BloodSt. Elizabeth HospitalLymphocytes [#/volume] in Blood by Automated countSt. Elizabeth HospitalLymphocytes/100 leukocytes in Blood by Automated [facility] HospitalMCH [Entitic mass] by Automated countSt. Elizabeth HospitalMCHC [Mass/volume] by Automated [facility] HospitalMCV [Entitic volume] by Automated [facility] Monocytes [#/volume] in Blood by Automated [facility] HospitalMonocytes/100 leukocytes in Blood by Automated countSt. Elizabeth HospitalNeutrophils [#/volume] in Blood by Automated countSt. Elizabeth HospitalNeutrophils/100 leukocytes in Blood by Automated count [facility] HospitalNucleated erythrocytes [Presence] in Blood by Automated [facility] HospitalOpiates [Presence] in Urine [facility] HospitalPatient EducationParkwood Hospital Medical Ctr Work Phone: Patient referralMercy Hospital Ctr Work Phone: Phencyclidine [Presence] in UrineSt. Elizabeth HospitalPlatelet mean volume [Entitic volume] in Blood by Automated count [facility] HospitalPlatelets [#/volume] in BloodWadsworth-Rittman Hospitalpecimen source [Identifier] of Unspecified specimenWadsworth-Rittman Hospitaltreptococcus pneumoniae Ag [Presence] in Unspecified specimenSt. Elizabeth HospitalThiamine [Moles/volume] in Blood [facility] HospitalThyroglobulin Ab [Units/volume] in Serum or PlasmaSt. Elizabeth HospitalThyroperoxidase Ab [Units/volume] in Serum or PlasmaH[facility] Payers DatePayer CategoryPayerPolicy [id number] 2025Self-pay [id number] [id number] [id number] [id number] 2.0.1.165581.3.57[id number] 2.0.1.932799.3.57[id number] 2.0.1.297323.3.57[id number] 2.0.1.332605.3.57[id number] 2.0.1.943913.3.579.2.732MedicaidMedicaid Out of [id number] [facility] [id number] 2.16.840.1.3[id number] 2.16.840.1.267745.3.579.2.531 [id number] 2.16.840.1.1[id number] 2.16.840.1.9[id number] 2.16.840.1.169572.3.579.2.531 Social History DateTypeDetailFacilityStart: 05-06-2024 End: 53-43-0979Fftayzo smoking status NHISCurrent Heavy tobacco smokerWadsworth-Rittman Hospitaltart: 75-20-5567Quz Assigned At BirthTriHealth Good Samaritan Hospitaltart: 11-18-2024 End: 61-35-9564NylSych (finding)[facility]tart: 11-18-2024 End: 28-23-8134Czfzelu smoking status NHISUnknown if ever smokedWadsworth-Rittman Hospitaltart: 87-61-2540HVNH Follow upSDOH [facility] upC[facility] Work Phone: Medical Equipment Procedure CodeEquipment CodeEquipment Original TextEquipment IdentifierDatesCL STENT XENIA FRONTIER 4.0 X 30FDAStart: 90-44-7549ZW STENT XENIA FRONTIER 4.0 X 30 FDAStart: 06-07-2025 Goals DatePatient GoalDesired Activity/State Functional Status GbdcRedugyyikjXjudxnWcsbjgvd14-49-0776Hprkggdjpk statusPatient at Baseline [facility] Work Phone: 1(316) 516-24360497906-26-6386Egxgghmsjz statusPatient at Baseline [facility] Work Phone: Mental Status PzguVtrawxcowrSztsiaNinenlqy49-70-5435Mcvhelxmj functionCognitive Status Patient at BaselineC[facility] Work Phone: 1(296) 453-831406-590578-72-1190Xnyvetlza functionCognitive Status Patient at [facility] Work Phone: Clinical Notes 05-02-2024 to 06-07-2025 Note Date & EjqdXutcHvskwytc88-82-3377 Evaluation note* Diagnosis Onset Date Resolution Status Admit Date History of seizure disorder acuteJuly 2024 8:22amPolysubstance abuseacuteJuly 2024 8:22amST elevation myocardial infarction (STEMI) of inferior wallacuteJuly 2024 8:22am [facility] Work Phone: 1(295) 866-583007-26-2025 Evaluation note* Diagnosis Onset Date Resolution Status [...] (CVA)acuteSeptember 2024 7:25pmHistory of noncompliance with medical treatmentacuteSept2024 7:25pmHistory of seizure disorderacuteSept2024 7:25pm Polysubstance abuseacuteSeptember 2024 7:25pmStented coronary arteryacute July 31, 2025 7:25pmElevated troponinresolvedSeptember 2024 7:25pm SeizureresolvedSeptember 2024 7:25pm [facility] Work Phone: 1(813) 436-703807-26-2025 Evaluation note* Diagnosis Onset Date Resolution Status [...] 2024 7:25pmPolysubstance abuseacuteSeptember 2024 7:25pmStented coronary artery acuteSept2024 7:25pmElevated troponinresolvedSept2024 7:25pmSeizureresolvedSeptember 2024 7:25pm [facility] Work Phone: 1(619) 123-474401-08-2025 Progress note Author Yamila Donald St[facility] HospitalNote Date/TimeJanuary 2024 7:21pm96 [place] [address] [address] Hospitalist Progress Note Signed Patient: Aaron Olivarez MR#: [id number] : 1960 Acct:[id number] Age/Sex: 64 / M Adm Date: 5 Loc: 4C Room: [address] [place] [address] Type: ADM IN Attending Dr: Yamila Donald [...] By: <Electronically signed by Yamila Donald MD> 11/20/241920 [facility] Work Phone: 1(799) 180-801501-08-2025 [place] [address] Hospitalist Progress Note Signed Patient: Aaron Olivarez MR#: [id number] : 1960 Acct:[id number] Age/Sex: 64 / M Adm Date: 5 Loc: Room: [address] [place] [address] Type: ADM IN Attending Dr: Yamila Donald [...] MD 11/20/24 1723 Signed By: 11/20/241920 [facility]01-08-2025 Progress note Author Yamila Donald [facility] Date/TimeJanuary 2024 3:02[place] [address] Hospitalist Progress Note Signed Patient: Aaron Olivarez MR#: [id number] : 1960 Acct:[id number] Age/Sex: 64 / M Adm Date: 5 Loc: Room: [address] [place] [address] Type: ADM IN Attending Dr: Yamila Donald [...] Seizure: Plan Documented By: Yamila Donald MD 01/06/06 2101 Signed By: <Electronically signed by Yamila Donald MD> 11/20/24 0309 [facility] Work Phone: 1(799) 884-685001-08-[address] [address] Hospitalist Progress Note Signed Patient: Aaron Olivarez MR#: [id number] : 1960 Acct:[id number] Age/Sex: 64 / M Adm Date: 5 Loc: Room: [address] [place] [address] Type: ADM IN Attending Dr: Yamila Donald [...] MD 11/19/242100 Signed By: 11/20/[address] [facility]01-07-2025 Progress note Author Neville Bush [facility] Date/TimeJanuary 2024 6:02[place] [address] Neurology Progress Note Signed Patient: Aaron Olivarez MR#: [id number] : 1960 Acct:[id number] Age/Sex: 64 / M Adm Date: 5 Loc: Room: [address] [place] [address] Type: ADM IN Attending Dr: Yamila Donald [...] Neville Bush DO 11/19/24 1751 Signed By: <Electronically signed by Neville Bush DO> 11/19/24 1803 [facility] Work Phone: 1(149) 107-924401-07-2025 [place] [address] Neurology Progress Note Signed Patient: Aaron Olivarez MR#: [id number] : 1960 Acct:[id number] Age/Sex: 64 / M Adm Date: 5 Loc: Room: [address] [place] [address] Type: ADM IN Attending Dr: Yamila Donald [...] DO 11/19/24 1759 Signed By: 11/19/[address] [facility]01-07-2025 Progress note Author Yamila Donald [facility] Date/TimeJanuary 2024 3:10[place] [address] Hospitalist Progress Note Signed Patient: Aaron Olivarez MR#: [id number] : 1960 Acct:[id number] Age/Sex: 64 / M Adm Date: 5 Loc: Room: 3E3899-3 Type: ADM IN Attending Dr: Yamila Donald [...] Lactated Ringers IV 11/18/24 17:34 70 mls/hr .[id number] [facility] Administration Levetiracetam 500 mg/ Dextrose 105 [...] Yamila Donald MD> 11/19/24 0310 [facility] Work Phone: 1(814) 765-321301-07-2025 [place] [address] Hospitalist Progress Note Signed Patient: Aaron Olivarez MR#: [id number] : 1960 Acct:[id number] Age/Sex: 64 / M Adm Date: 5 Loc: Room: [address] [place] [address] Type: ADM IN Attending Dr: Yamila Donald [...] Lactated Ringers IV 11/18/24 17:34 70 mls/hr .[id number] [facility] Administration Levetiracetam 500 mg/ Dextrose 105 [...] 11/18/24 1646 Signed By: 11/19/[address] [facility]01-06-2025 Consult note Author Neville Bush [facility] Date/TimeJanuary 2024 5:44[place] [address] Neurology Consult Note Signed Patient: Aaron Olivarez MR#: [id number] : 1960 Acct:[id number] Age/Sex: 64 / M Adm Date: 5 Loc: Room: [address] [place] [address] Type: ADM IN Attending Dr: Yamila Donald MD Copies to: DO Sulaiman Mosquera DO Marwan Wassouf, MD~ HPI Consult Date: 11/18/24 Project Management Manager: Neville Bush DO [facility] Medical History Heavy smoker Heroin use H/O ETOH abuse COPD (chronic obstructive pulmonary disease) Social History Smoking Status: Unknown if ever smoked Substance Use Type: Marijuana, Heroin and Methamphetamine Social History Comments: Moved from [place] to [place] to live with sonLamin. Meds [...] Dung Chakraborty M.D.11/17/2024 8:43 AM Dictation Location: [facility]- Head CTA 11/17/24 08:25 IMPRESSION: No evidence of focal stenosis, aneurysmal dilatation, dissection or occlusion. No evidence of acute traumatic injury. The cervical spine and upper thoracic spine are grossly intact. Impression dictated by: Dung Chakraborty M.D.11/17/2024 8:59 AM Dictation Location: [place] [address] Chest X-Ray 11/17/24 12:57 IMPRESSION: No acute cardiopulmonary pathology. Impression dictated by: Dung Chakraborty M.D.11/17/2024 1:26 PM Dictation Location: [facility]--17 Assessment/Plan (1) Seizure: Plan CONSULT [...] signed by Neville Bush DO> 11/18/24 1744 [facility] Work Phone: 1(257) 291-449501-06-2025 Consult note Author Julito Mosley [facility] Date/TimeJanuary 2024 4:27pmTracey [place] [id number] Cardiology Consult Note Signed Patient: Aaron Olivarez MR#: [id number] : 1960 Acct:[id number] Age/Sex: 64 / M Adm Date: 5 Loc: Room: [address] [place] [address] Type: ADM INOo Attending Dr: Yamila Donald [...] in HPI [facility] Medical History Heavy smoker Heroin use H/O ETOH abuse COPD (chronic obstructive pulmonary disease) Social History Smoking Status: Unknown if ever smoked Substance Use Type: Marijuana, Heroin and Methamphetamine Social History Comments: Moved from [place] to [place] to live with son, Lamin. [...] x10E3/uL Lymph # (Auto) 1.4 (1.00-4.8) x10E3/uL Towns # (Auto) 0.6 (0.0-0.8) x10E3/uL Eos # [...] @ 70 1000 / 1000 mls/hr IV .[id number] [facility] Rx#: [id number] levETIRAcetam 500 mg In 105 / 105 Dextrose 5 % in Water 100 ml @ 420 mls/hr IV BID [facility] Rx#: [id number] Output: Urine 500 / 500 Other: # [...] quality. - Troponin is only marginally elevated --36--26. He has no chest pain, shortness of [...] <Electronically signed by Julito Mosley MD> 11/18/24 1624 [facility] Work Phone: 1(318) 769-239301-06-2025 [place] [address] Neurology Consult Note Signed Patient: Aaron Olivarez MR#: [id number] : 1960 Acct:[id number] Age/Sex: 64 / M Adm Date: 5 Loc: Room: [address] [place] [address] Type: ADM IN Attending Dr: Yamila Donald MD Copies to: DO Sulaiman Mosquera DO Marwan Wassouf, MD~ HPI Consult Date: 11/18/24 Project Management Manager: Neville Bush DO [facility] Medical History Heavy smoker Heroin use H/O ETOH abuse COPD (chronic obstructive pulmonary disease) Social History Smoking Status: Unknown if ever smoked Substance Use Type: Marijuana, Heroin and Methamphetamine Social History Comments: Moved from [place] to [place] to live with son, Lamin. [...] 11/18/24 1738 Signed By: 11/18/[address] [facility]01-06-2025 [place] [address] Cardiology Consult Note Signed Patient: Aaron Olivarez MR#: [id number] : 1960 Acct:[id number] Age/Sex: 64 / M Adm Date: 5 Loc: Room: [address] [place] [address] Type: ADM INOo Attending Dr: Yamila Donald [...] in HPI [facility] Medical History Heavy smoker Heroin use H/O ETOH abuse COPD (chronic obstructive pulmonary disease) Social History Smoking Status: Unknown if ever smoked Substance Use Type: Marijuana, Heroin and Methamphetamine Social History Comments: Moved from [place] to [place] to live with son, Lamin. [...] x10E3/uL Lymph # (Auto) 1.4 (1.00-4.8) x10E3/uL Towns # (Auto) 0.6 (0.0-0.8) x10E3/uL Eos # [...] @ 70 1000 / 1000 mls/hr IV .[id number] [facility] Rx#: [id number] levETIRAcetam 500 mg In 105 / 105 Dextrose 5 % in Water 100 ml @ 420 mls/hr IV BID [facility] Rx#: [id number] Output: Urine 500 / 500 Other: # [...] 05/07 1612 Signed By: 11/18/[address] [facility]01-06-2025 Evaluation note* Diagnosis Onset Date Resolution Status Admit Date Acute CVA (cerebrovascular accident) acuteJanuary 2024 1:02pmAltered mental statusacuteJanuary 2024 1:02pm SeizureacuteJanuary 2024 1:02pmT wave inversion in EKGacuteJanuary 2024 1:02pm [facility] Work Phone: 1(534) 476-755401-05-2025 Progress note Author Chaz Frey [facility] Date/TimeJanuary 2024 2:00[place] [address] Progress Note Signed Patient: Aarno Olivarez MR#: [id number] : 1960 Acct:[id number] Age/Sex: 64 / M Adm Date: 5 Loc: Room: [address] [place] [address] Type: ADM INOo Attending Dr: Chaz Frey [...] Chaz Frey MD> 11/17/24 1400 [facility] Work Phone: 1(138) 567-498501-05-2025 History and physical note Author Chaz Frey [facility] Date/TimeJanuary 2024 1:11[place] [address] Hospitalist H&P Signed Patient: Aaron Olivarez MR#: [id number] : 1960 Acct:[id number] Age/Sex: 64 / M Adm Date: 5 Loc: Room: [address] [place] [address] Type: ADM INOo Attending Dr: Chaz Frey [...] was made not to transfer him to [place] for thrombectomy. On-call stroke team recommended admission to [facility] for neurological andseizure workup with recommendation [...] seizure history. [facility] Medical History Heavy smoker Heroin use H/O ETOH abuse COPD (chronic obstructive pulmonary disease) Social History Smoking Status: Heavy tobacco smoker Social History Comments: Moved from [place] to [place] to live with son, Lamin. [...] % (Auto) 4.4 % (.) 11/17/24 08: Towns % (Auto) 3.3 % (.) 11/17/24 08: Eos % (Auto) 0.1 % (.) 11/17/24 08: Baso % (Auto) 0.4 % (.) 11/17/24 08: Nucleat RBC Rel Count 0.1 /100 WBC (0-0.5) 11/17/24 08: Neut # (Auto) 9.2 x10E3/uL (1.8-7.7) H 11/17/24 08: Lymph # (Auto) 0.4 x10E3/uL (1.00-4.8) L 11/17/24 08: Towns # (Auto) 0.3 x10E3/uL (0.0-0.8) 11/17/24 08: [...] (6.0-15.0) 11/17/24 08:28 BUN 16 mg/dL (7-25) 01/05/25 08:28 Creatinine 1.27 mg/dL (0.70-1.30) 11/17/24 08:28 [...] admit him to the medical floor at [facility] I started him on aspirin and statin. [...] by Chaz Frey MD> 11/17/24 1311 [facility] Work Phone: 1(259) 891-669101-05-[address] [address] Progress Note Signed Patient: Aaron Olivarez MR#: [id number] : 1960 Acct:[id number] Age/Sex: 64 / M Adm Date: 5 Loc: Room: [address] [place] [address] Type: ADM INOo Attending Dr: Chaz Frey [...] 11/17/24 1359 Signed By: 11/17/[address] [facility]01-05-2025 [place] [address] Hospitalist H&P Signed Patient: Aaron Olivarez MR#: [id number] : 1960 Acct:[id number] Age/Sex: 64 / M Adm Date: 5 Loc: Room: [address] [place] [address] Type: ADM INOo Attending Dr: Chaz Frey [...] was made not to transfer him to [place] for thrombectomy. On-call stroke team recommended admission to [facility] for neurological andseizure workup with recommendation [...] seizure history. [facility] Medical History Heavy smoker Heroin use H/O ETOH abuse COPD (chronic obstructive pulmonary disease) Social History Smoking Status: Heavy tobacco smoker Social History Comments: Moved from [place] to [place] to live with son, Lamin. [...] % (Auto) 4.4 % (.) 11/17/24 08:28 Towns % (Auto) 3.3 % (.) 11/17/24 08:28 Eos % (Auto) 0.1 % (.) 11/17/24 08:28 Baso % (Auto) 0.4 % (.) 11/17/24 08:28 Nucleat RBC Rel Count 0.1 /100 WBC (0-0.5) 11/17/24 08:28 Neut # (Auto) 9.2 x10E3/uL (1.8-7.7) H 11/17/24 08:28 Lymph # (Auto) 0.4 x10E3/uL (1.00-4.8) L 11/17/24 08:28 Towns # (Auto) 0.3 x10E3/uL (0.0-0.8) 11/17/24 08: [...] 11/17/24 08: Calcium 9.1 mg/dL (8.6-10.3) 11/17/24 08:28 Total [...] admit him to the medical floor at [facility] I started him on aspirin and statin. [...] 11/17/24 1301 Signed By: 11/17/[address] [facility]01-05-2025 Evaluation note* Diagnosis Onset Date Resolution Status Admit Date Acute CVA (cerebrovascular accident) acuteJanuary 2024 9:54amAltered mental statusacuteJanuary 2024 9:54am SeizureacuteJanuary 2024 9:54am [facility] Work Phone: 1(353) 866-154201-05-2025 [facility]iology [facility] [place] [address] [place] [address] CT Scan Report Signed Patient: Aaron Olivarez MR#: [id number] : 1960 Acct:[id number] Age/Sex: 64 / M ADM Date: 5 Loc: ER Room: Type: PRE ER Attending Dr: Copies to: Jamin Sepulveda DO~ Ordering Provider: Jamin Sepulveda DO Date of Service: 11/17/24 CT/CT angio head: cva ([id number]) CT/CT angio neck: cva CT angio head, [...] Dung Chakraborty M.D.11/17/2024 8:59 AM Dictation Location: [place] [address] Transcribed By: [facility] 11/17/24 0859 Dictated By: Dung Chakraborty II, MD 11/17/24 0852 Signed By: 11/17/[address] [facility] Work Phone: 1(619) 191-889401-05-2025 Radiology Diagnostic study [facility] [place] [address] [place], [place] [id number] CT Scan Report Signed Patient: Aaron Olivarez MR#: [id number] : 1960 Acct:[id number] Age/Sex: 64 / M ADM Date: Loc: ER Room: Type: PRE ER Attending Dr: Copies to: aJmin Sepulveda DO~ Ordering Provider: Jamin Sepulveda DO [...] Dung Chakraborty M.D.11/17/2024 8:43 AM Dictation Location: [place] [address] Transcribed By: YNES 0143 Dictated By: Dung Chakraborty II, MD 11/17/2437 Signed By: 11/17/2443 [facility] Work Phone: 1(885) 665-284309-01-2024 NoteADDENDUM: Results were called to the ordering [...] MD 07/14/24 Edited Result - [facility]06-24-2024 Discharge summary Author Kiko Maldonado [facility] May 06, 2024 2:21pmNote Date/TimeJune 2023 11:44[place] [id number] Discharge Summary Signed Patient: Aaron Olivarez MR#: [id number] : 1960 Acct:[id number] Age/Sex: 63 / M Adm Date: 4 Loc: Room: [address] [place] [address]: Kiko Maldonado MD Copies to: [...] to the emergency department at [facility] on May 01, with complaints of [...] signed by Kiko Maldonado MD> 05/06/24 1421 [facility] Work Phone: 1(728) 298-715906-24-2024 Progress note Author Thanh Paris [facility] May 06, 2024 10:16amNote Date/TimeJune 2023 10:16[place] [address] Pulmonology Progress Note Signed Patient: Aaron Olivarez MR#: [id number] : 1960 Acct:[id number] Age/Sex: 63 / M Adm Date: 4 Loc: Room: [address] [place] [address] Type: ADM IN Attending Dr: Janae Jose MD Copies to: ~ Date of Service: 05/06/2024 Subjective Subjective Narrative: Patient voices no complaints at the time my evaluation. He is very interested in being discharged today as he can relax at home as opposed to being in the hospital. He knows he is in a hospital butdoes not know that he is at [facility] in [place]. He also knows it is 2023. Exam Physical Exam Vital Signs: Temp Pulse Resp BP Pulse Ox O2 Del Method O2 Flow Rate 98.2 F 60 19 119/63 92 L Room Air 2 05/06/24 07:46 05/06/24 10:05/06/24 10:05/06/24 10:05/06/24 10:05/06/24 10:05/06/24 07:34 FiO2 40 05/04/24 01:00 Const Orientation: [...] MD Thanh Paris> 05/06/24 1016 [facility] Work Phone: 1(235) 324-395706-23-2024 Progress note Author Janae Jose [facility] May 05, 2024 1:27pmNote Date/TimeJune 2023 1:22pm[place] [address] Hospitalist Progress Note Signed Patient: Aaron Olivarez MR#: [id number] : 1960 Acct:[id number] Age/Sex: 63 / M Adm Date: 4 Loc: Room: [address] [place] [address] Type: ADM IN Attending Dr: Janae Jose [...] down without significant elevation. Suspecting type II NV from hypoxia. Echocardiogram showing preserved ejection fraction with mild LVH. No wall motion abnormality seen. EKG negative for acute ischemic changes. Documented By: Janae Jose MD 05/05/24 1319 Signed By: <Electronically signed by Janae Jose MD> 05/05/24 1327 [facility] Work Phone: 1(667) 619-282906-23-2024 Progress note Author Víctor Agrawal [facility] May 05, 2024 11:29amNote Date/TimeJune 2023 11:29[place] [address] Pulmonology Progress Note Signed Patient: Aaron Olivarez MR#: [id number] : 1960 Acct:[id number] Age/Sex: 63 / M Adm Date: 4 Loc: Room: [address] [place] [address] Type: ADM IN Attending Dr: Janae Jose [...] 05/05/24 10:00 05/05/24 10:00 05/05/24 10:00 05/05/24 10:05/05/24 10:00 FiO2 40 05/04/24 01:00 Narrative: General: [...] edema, no clubbing. Skin: No skin rash PODIATRY ASSISTANT: Sleepy, easily arousable, no focal deficits. Objective Intake and Output I&O - Last 24 Hours: Intake & Output 05/04/24 05/05/2405/05/24 23:59 07:59 15:59 Intake Total 500 / [...] signed by Víctor Agrawal MD> 05/05/24 1129 [facility] Work Phone: 1(972) 924-912906-22-2024 Progress note Author Janae Jose [facility] May 04, 2024 12:19pmNote Date/TimeJune 2023 12:13[place] [address] Hospitalist Progress Note Signed Patient: Aaron Olivarez MR#: [id number] : 1960 Acct:[id number] Age/Sex: 63 / M Adm Date: 4 Loc: Room: [address] [place] [address] Type: ADM IN Attending Dr: Janae Jose [...] down without significant elevation. Suspecting type II NV from hypoxia. Echocardiogram showing preserved ejection fraction with mild LVH. No wall motion abnormality seen. Negative for acute ischemic changes. Documented By: Janae Jose MD 05/04/24 1210 Signed By: <Electronically signed by Janae Jose MD> 05/04/24 1219 [facility] Work Phone: [phone])196-787503-86107621-91-0158 Progress note Author Víctor Agrawal [facility] May 04, 2024 12:03pmNote Date/TimeJune 2023 11:[address] [address] Pulmonology Progress Note Signed Patient: Aaron Olivarez MR#: [id number] : 1960 Acct:[id number] Age/Sex: 63 / M Adm Date: 4 Loc: Room: [address] [place] [address] Type: ADM IN Attending Dr: Janae Jose [...] Musculoskeletal: No edema Skin: No skin rash PODIATRY ASSISTANT: Drowsy and confused, does not interact or [...] Víctor Agrawal MD> 05/04/24 1203 [facility] Work Phone: 1(374) 443-336306-21-2024 Progress note Author Víctor Agrawal [facility] May 03, 2024 1:57pmNote Date/TimeJune 2023 1:57pm[place] [address] Pulmonology Progress Note Signed Patient: Aaron Olivarez MR#: [id number] : 1960 Acct:[id number] Age/Sex: 63 / M Adm Date: 4 Loc: Room: [address] [place] [address] Type: ADM IN Attending Dr: Janae Jose [...] Musculoskeletal: No edema Skin: No skin rash PODIATRY ASSISTANT: Drowsy, 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 No focal deficits Objective Intake [...] Víctor Agrawal MD> 05/03/24 1357 [facility] Work Phone: 1(983) 498-908606-21-2024 Progress note Author Janae Jose [facility] May 03, 2024 12:57pmNote Date/TimeJune 2023 12:57pm[place] [address] Hospitalist Progress Note Signed Patient: Aaron Olivarez MR#: [id number] : 1960 Acct:[id number] Age/Sex: 63 / M Adm Date: 4 Loc: Room: [address] [place] [address] Type: ADM IN Attending Dr: Janae Jose [...] Flow 30 05/03/24 12:00 05/03/24 12:00 05/03/24 12:05/03/24 12:05/03/24 12:05/03/24 12:05/03/24 12:00 FiO2 40 05/03/24 12:00 Const [...] down without significant elevation. Suspecting type II NV from hypoxia. Pending echocardiogram to assess LV function and wall motion. Will obtain twelve-lead EKG. Documented By: Janae Jose MD 05/03/24 1247 Signed By: <Electronically signed by Janae Jose MD> 05/03/24 1257 [facility] Work Phone: 1(143) 710-532006-20-2024 Progress note Author Janae Jose [facility] May 02, 2024 1:49pmNote Date/TimeJune 2023 1:[address]pm[address] [address] Event Note Signed Patient: Aaron Olivarez MR#: [id number] : 1960 Acct:[id number] Age/Sex: 63 / M Adm Date: 4 Loc: Room: [address] [place] [address] Type: ADM IN Attending Dr: Janae Jose [...] by Janae Jose MD> 05/02/24 1349 [facility] Work Phone: 1(516) 113-461906-20-2024 Consult note Author Víctor Agrawal [facility] May 02, 2024 1:47pmNote Date/TimeJune 2023 1:42pmFIRJack [place] [id number] Pulmonology Consult Note Signed Patient: Aaron Olivarez MR#: [id number] : 1960 Acct:[id number] Age/Sex: 63 / M Adm Date: 4 Loc: Room: [address] [place] [address] Type: ADM IN Attending Dr: Janae Jose [...] and history of hypertension was transferred from [place] ED directly into ICU. Apparently, patient was e xperiencing productive cough with thick yellow phlegm and increased shortness of breath prior to his presentation to [place] ED. Patient was found by familylethargic and difficult to arouse, oxygen saturation was 70% on room air, venousblood gas showed pCO2 of 80 with pH of 7.32. Patient refused BiPAP. Chest CT angiogram reported negative for PE, showed right lower lobe consolidation consistent with pneumonia. [facility] Social History Smoking Status: Heavy [...] Musculoskeletal: No edema Skin: No skin rash PODIATRY ASSISTANT: Drowsy, no focal deficits Results - Pulmonology [...] Víctor Agrawal MD> 05/02/24 1347 [facility] Work Phone: 1(139) 388-757606-20-2024 History and physical note Author Magdy Douglass [facility] May 02, 2024 7:12amNote Date/TimeJune 2023 7:11am[place] [address] Hospitalist H&P Signed Patient: Aaron Olivarez MR#: [id number] : 1960 Acct:[id number] Age/Sex: 63 / M Adm Date: 4 Loc: Room: [address] [place] [address] Type: ADM IN Attending Dr: Janae Jose MD Copies to: MD Sulaiman Ruggiero DO Mazhar Rahman, MD~ HPI DATE OF EXAMINATION: 05/01/24 CHIEF COMPLAINT: cough, dyspnea, altered mental status HISTORY OF PRESENT ILLNESS: 63 year old man with history of HTN, COPD, tobacco abuse who presented to [place] ED with the above complaints. Per the patient for 2-3 days prior to admission he was having a cough productiveof thick yellow sputum and increasing dyspnea with exertion. On the date of presentation family members went to see thepatient and found that he was lethargic and difficult to arouse so he was brought to [place] ED for evaluation. On arrival there pulse [...] on the right in the lower lung stoo and rhonchi right lower Cardio Palpation: normal [...] % (Auto) 7.8 % (.) 05/02/24 04:20 Towns % (Auto) 8.2 % (.) 05/02/24 04:20 Eos % (Auto) 0.0 % (.) 05/02/24 04:20 Baso % (Auto) 0.2 % (.) 05/02/24 04:20 Nucleat RBC Rel Count 0.2 /100 WBC (0-0.5) 05/02/24 04:20 Neut # (Auto) 6.3 x10E3/uL (1.8-7.7) 05/02/24 04:20 Lymph # (Auto) 0.6 x10E3/uL (1.00-4.8) L 05/02/24 04:20 Towns # (Auto) 0.6 x10E3/uL (0.0-0.8) 05/02/24 04:20 [...] Magdy Douglass MD> 05/02/24 0712 [facility] Work Phone: Consult note Author Patricio Galaviz [facility] May 06, 2024 1:01pmNote Date/TimeJune 2023 1:01pmTrem[place] [address] Physiatry (Rehab) Consult Note Signed Patient: Aaron Olivarez MR#: [id number] : 1960 Acct:[id number] Age/Sex: 63 / M Adm Date: 4 Loc: Room: [address] [place] [address] Type: ADM IN Attending Dr: Kiko Maldonado [...] in HPI [facility] Medical History Heavy smoker Heroin use H/O ETOH abuse COPD (chronic obstructive pulmonary disease) Social History Smoking Status: Heavy tobacco smoker Social History Comments: Moved from [place] to [place] to live with son, Lamin. [...] chart, including current orders, allied health and financial reporting consultant notes, labs/imaging and performed fairbanks elements of exam and I formulated the plan of care and facilitated the medical decision making. I completed a substantive portion of this encounter, the medical decision making portion of this note in its entirety, including Allied health note review, nursing note review, financial reporting consultant note review, discussion with nursing and case management, and more than 50% of my time was spent on counseling and coordination of care, time spent 60 minutes Documented By: Patricio Galaviz MD 05/06/24 1251 Signed By: <Electronically signed by Patricio Galaviz MD> 05/06/24 1301 [facility] Work Phone: Consult note Author Julito Mosley [facility] Date/TimeJanuary 2024 4:27pm[place] [address] Cardiology Consult Note Signed Patient: Aaron Olivarez MR#: [id number] : 1960 Acct:[id number] Age/Sex: 64 / M Adm Date: 5 Loc: Room: [address] [place] [address] Type: ADM INOo Attending Dr: Yamila Dnoald MD Copies to: DO Julito Barnard MD [...] in HPI [facility] Medical History Heavy smoker Heroin use H/O ETOH abuse COPD (chronic obstructive pulmonary disease) Social History Smoking Status: Unknown if ever smoked Substance Use Type: Marijuana, Heroin and Methamphetamine Social History Comments: Moved from [place] to [place] to live with sonLamin. Meds [...] x10E3/uL Lymph # (Auto) 1.4 (1.00-4.8) x10E3/uL Towns # (Auto) 0.6 (0.0-0.8) x10E3/uL Eos # [...] @ 70 1000 / 1000 mls/hr IV .[id number] [facility] Rx#: [id number] levETIRAcetam 500 mg In 105 / 105 Dextrose 5 % in Water 100 ml @ 420 mls/hr IV BID [facility] Rx#: [id number] Output: Urine 500 / 500 Other: # [...] Julito Mosley MD> 11/18/24 1627 [facility] Work Phone: Consult note Author Neville Bush [facility] Date/TimeJanuary 2024 5:44[place] [address] Neurology Consult Note Signed Patient: Aaron Olivarez MR#: [id number] : 1960 Acct:[id number] Age/Sex: 64 / M Adm Date: 5 Loc: Room: [address] [place] [address] Type: ADM IN Attending Dr: Yamila Donald MD Copies to: Neville Bush, DO Yamila Lemus MD~ HPI Consult Date: 11/18/24 Project Management Manager: Neville Bush DO [facility] Medical History Heavy smoker Heroin use H/O ETOH abuse COPD (chronic obstructive pulmonary disease) Social History Smoking Status: Unknown if ever smoked Substance Use Type: Marijuana, Heroin and Methamphetamine Social History Comments: Moved from [place] to [place] to live with sonLamin. Meds [...] twice daily Documented By: Neville Bush DO 11/18/248 Signed By: <Electronically signed by Neville Bush DO> 11/18/24 1744 [facility] Work Phone: Evaluation note* Diagnosis Onset Date Resolution Status Acute exacerbation of chronic obstructiv e pulmonary disease (COPD) acuteAcute respiratory failure with hypoxia and hypercapniaacuteAlcohol abuse acuteAlcohol withdrawalacuteCommunity acquired pneumoniaacuteElevated troponin acuteHistory of heroin abuseacuteMetabolic encephalopathyacuteNicotine dependenceacuteRight lower lobe pneumoniaacuteTobacco abuseacuteUncontrolled hypertensionacute [facility] Work Phone: Progress note [facility]ila [facility] Date/TimeJanuary 2024 3:10am[place] [address] Hospitalist Progress Note Signed Patient: Aaron Olivarez MR#: [id number] : 1960 Acct:[id number] Age/Sex: 64 / M Adm Date: 5 Loc: Room: [address] [place] [address] Type: ADM IN Attending Dr: Yamila Donald [...] 16:00 11/18/24 16:00 11/18/24 16:00 11/18/24 16:11/18/24 16:00 11/18/24 00:00 Narrative: GEN: NAD, not [...] Lactated Ringers IV 11/18/24 17:34 70 mls/hr .[id number] CORBY Administration Levetiracetam 500 mg/ Dextrose 105 mls @ 420 mls/hr 11/17/24 21:00 11/18/24 10:09 IV 11/21/24 20:59 Infused BID COBRY Infusion Lisinopril 20 mg 11/18/24 16:50 Lisinopril [...] Yamila Donald MD> 11/19/24 0310 [facility] Work Phone: Progress note [facility] Date/TimeJanuary 2024 6:02pmT[place]ont[place] [address] Neurology Progress Note Signed Patient: Aaron Olivarez MR#: [id number] : 1960 Acct:[id number] Age/Sex: 64 / M Adm Date: 5 Loc: Room: [address] [place] [address] Type: ADM IN Attending Dr: Yamila Donald [...] follow-up. Documented By: Neville Bush DO 11/19/24 8514 Signed By: <Electronically signed by Neville Bush DO> 11/19/24 1802 [facility] Work Phone: Progress note [facility] Date/TimeJanuary 2024 3:02[place] [address] Hospitalist Progress Note Signed Patient: Aaron Olivarez MR#: [id number] : 1960 Acct:[id number] Age/Sex: 64 / M Adm Date: 5 Loc: Room: [address] [place] [address] Type: ADM IN Attending Dr: Yamila Donald [...] 11/19/24 19:00 11/19/24 19:00 11/19/24 19:00 11/19/24 19:11/19/24 19:11/18/24 00:00 Narrative: GEN: NAD, not Cooperative [...] Yamila Donald MD> 11/20/24 0302 [facility] Work Phone: Progress note [facility] Date/TimeJanuary 2024 7:21pm[place] [address] Hospitalist Progress Note Signed Patient: Aaron Olivarez MR#: [id number] : 1960 Acct:[id number] Age/Sex: 64 / M Adm Date: 5 Loc: Room: [address] [place] [address] Type: ADM IN Attending Dr: Yamila Donald [...] signed by Yamila Donald MD> 11/20/24 1921 [facility] Work Phone: Reason for referral (narrative)No reason for referral information availableMercy Hospital [facility]tr Work Phone: Summary Purpose Family [...] Date/ Time Advance Directives No May 21 7:10pm Advance Directive Response Recorded Date/ Time [...] Admit Date Acute CVA (cerebrovascular accident) [facility] 2024 9:54am Altered mental status November 17, 2024 9:54am Seizure November 17, 2024 9: 54am Chief Complaint Admit Date neuro symptoms/fall November 18, 2024 1: 02pm neuro symptoms/fall November 18, 2024 4: 12pm Reason for Visit Admit Date Acute CVA (cerebrovascular accident) [facility] 2024 1:02pm Altered mental status November 18, 2024 1:02pm Seizure November 18, 2024 1: 02pm T wave inversion in EKG November 18 1:02pm Chief Complaint Admit Date 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, 2025 8:22 am Reason for Visit Admit Date History of seizure disorder June 07 8:22am Polysubstance abuse June 07, 2025 8:[address] elevation myocardial infarction (STEM I) of inferior wall June 07, 2025 8:22am Chief Complaint Admit Date 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, 2025 8:22 am Unknown July [...] 31, 2025 7:25pm Chief Complaint Admit Date 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, 2025 8:22 am Unknown July 31, 2025 1:55pm Respiratory Failure July 31, 2025 7:25pm Respiratory Failure August 07, 2025 12:00am Respiratory Failure August 14, 2025 12 :00am Reason for Visit Admit Date History of seizure disorder June 07, 025 8:22am Polysubstance abuse June 07, 2025 8:22 [...] content) DATE CREATED AUTHOR 05/01/2018 [facility] DATE CREATED AUTHOR AUTHOR'S ORGANIZ ATION 05/04/[address] [facility] DATE CREATED AUTHOR AUTHOR'S ORGANIZ ATION 05/07/2018 [facility] DATE CREATED AUTHOR AUTHOR'S ORGANIZ ATION 05/09/2018 [facility] DATE CREATED AUTHOR AUTHOR'S ORGANIZ ATION 10/23/2018 [facility] DATE CREATED AUTHOR AUTHOR'S ORGANIZ ATION 11/28/2022 [facility] DATE CREATED AUTHOR AUTHOR'S ORGANIZ ATION 07/24/2024 [facility] DATE CREATED AUTHOR AUTHOR'S ORGANIZ ATION 11/24/2024 [facility] DATE CREATED AUTHOR AUTHOR'S ORGANIZ ATION 06/10/2025 [facility] DATE CREATED AUTHOR AUTHOR'S ORGANIZ ATION 09/25/2025 [facility] Care Teams (unrecognized sec tion and content) Team Status: Active Member Role Status Dates Sulaiman Feldman DO Primary Care Provider Active Team Status: Active Member Role Status Dates Sulaiman Feldman DO Primary Care Provider Active Start: June 07, 2025 Aydee Gardner ProviderActiveStart: June 07, 2025 Miriam Gardner ProviderActiveStart: June 07, 2025 Donna Hughes ProviderActiveStart: June 07, 2025 Sivan Francois DOOther ProviderActiveStart: June 07, 2025 Miriam Cervantes ProviderActiveStart: June 07, 2025 Thanh Kenney , DOOther ProviderActiveStart: June 07, 2025 Neville Bush DOOther ProviderActiveStart: June 07, 2025 Bella Cano , APRNOther ProviderActiveStart: June 07, 2025 Alejandra Montenegro , PDHV-EWW-CIrgde ProviderActiveStart: June 07, 2025 Ratna Denton , CITRIX ADMINISTRATOR ACNP-BCOther ProviderActiveStart: June 07, 2025 Thanh Paris MDOther ProviderActiveStart: June 07, 2025 Víctor Agrawal MDOther ProviderActiveStart: June 07, 2025 Neville Rojas MDOther ProviderActiveStart: June 07, 2025 Kota Carreno , DOAttending ProviderActiveStart: June 07, 2025 Kota Carreno DOOther ProviderActiveStart: June 07, 2025 Michael Willoughby , DOOther ProviderActiveStart: June 07, 2025 Lizett Murray MDOther ProviderActiveStart: June 07, 2025 Twin Ruiz MDOther ProviderActiveStart: June 07, 2025 Brandy Wilburn MDOther ProviderActiveStart: June 07, 2025 Sherrie Perez MDOther ProviderActiveStart: June 07, 2025 Team Status: Inactive Member Role Status Dates Sulaiman Feldman DO Primary Care Provider Active Start: November 18, 2024 End: November 21, 2024Paalyssa Sepulveda DOEmergenvera ProviderActiveStart: November 18, 2024 End: November 21, 2024Chaz Frey MDAdmit ProviderActiveStart: November 18, 2024 End: November 21, 2024Yamila Donald MDAttending ProviderActiveStart: November 18, 2024 End: November 21, 2024Donna SciarappaOther ProviderActiveStart: November 18, 2024 End: November 21, 2024Kashmir Conner PhDOther ProviderActiveStart: November 18, 2024 End: November 21, 2024Sivan Francois DOOther ProviderActiveStart: November 18, 2024 End: November 21, 2024Reno Hubbard MDOther ProviderActiveStart: November 18, 2024 End: November 21camden Kenney DOOther ProviderActiveStart: November 18, 2024 End: November 21joaquina Bush , DOOther ProviderActiveStart: November 18, 2024 End: November 21silvia Cano , APRNOther ProviderActiveStart: November 18, 2024 End: November 21shanice Amaro , COOK BARBECUE-COther ProviderActiveStart: November 18, 2024 End: November 21, 2024Alejandra Montenegro , KGPB-RKQ-JZvlfw ProviderActiveStart: November 18, 2024 End: November 21, 2024 Team Status: Active Member Role Status Dates Sulaiman Feldman DO Primary Care Provider Active Start: November 18, 2024 Jamin Sepulveda DOEmerevie ProviderActiveStart: November 18, 2024 Chaz Frey MDAdmdevan ProviderActiveStart: November 18, 2024 Yamila Donald MDOther ProviderActiveStart: November 18, 2024 Jaylin Fajardo RNOther ProviderActiveStart: November 18, 2024 Wojciech Horowitz MDOther ProviderActiveStart: November 18, 2024 Julito Mosley , MDAttending Provider, Other ProviderActiveStart: November 18, 2024 Emy Rae MDOther ProviderActiveStart: November 18, 2024 Donna Hughes ProviderActiveStart: November 18, 2024 Kashmir Conner PhDOther ProviderActiveStart: November 18, 2024 Sivan Francois , DOOther ProviderActiveStart: November 18, 2024 Reno Hubbard MDOther ProviderActiveStart: November 18, 2024 Thanh Kenney , DOOther ProviderActiveStart: November 18, 2024 Neville Bush , DOOther ProviderActiveStart: November 18, 2024 Bella Cano , APRNOther ProviderActiveStart: November 18, 2024 Janie Amaro , COOK BARBECUE-COther ProviderActiveStart: November 18, 2024 Alejandra Montenegro , SGEQ-PTM-SXprfe ProviderActiveStart: November 18, 2024 Team Status: Active Member Role Status Dates Sulaiman Feldman DO Primary Care Provider Active Start: November 17, 2024 Jamin Sepulveda DOEmerevie ProviderActiveStart: November 17, 2024 Chaz Frey MDAdmit ProviderActiveStart: November 17, 2024 Yamila Donald , MDAttending ProviderActiveStart: November 17, 2024 Jaylin Fajardo RNOther ProviderActiveStart: November 17, 2024 Wojciech Horowitz MDOther ProviderActiveStart: November 17, 2024 Julito Mosley MDOther ProviderActiveStart: November 17, 2024 Emy Rae MDOther ProviderActiveStart: November 17, 2024 Donna Hughes ProviderActiveStart: November 17, 2024 Kashmir Conner PhDOther ProviderActiveStart: November 17, 2024 Sivan Francois , DOOther ProviderActiveStart: November 17, 2024 Reno Hubbard MDOther ProviderActiveStart: November 17, 2024 Thanh Kenney , DOOther ProviderActiveStart: November 17, 2024 Neville Bush DOOther ProviderActiveStart: November 17, 2024 Bella Cano , APRNOther ProviderActiveStart: November 17, 2024 Janie Amaro COOK BARBECUE-COther ProviderActiveStart: November 17, 2024 Alejandra Montenegro , FBBR-AGC-VQzyoi ProviderActiveStart: November 17, 2024 Team Status: Inactive [...] 01, 2024 End: May 06, 2024Sofia Kent APRNOther ProviderActiveStart: May 01, 2024 End: May 06jhon Pichardo Jr, DOOther ProviderActiveStart: May 01, 2024 End: May 06janny Mills MDOther ProviderActiveStart: May 01, 2024 End: May 06, 2024LaMiriam High ProviderActiveStart: May 01, 2024 End: May 06, [...] MDOther ProviderActiveStart: May 06, 2024 Patricio Galaviz MDAttending Provider, Other ProviderActiveStart: May 06, 2024 Sofia Kent , APRNOther ProviderActiveStart: May 06, 2024 Stevie Pichardo [...] ProviderActiveStart: July 31, 2025 Alejandra Montenegro , UQQX-GHC-NUuopd ProviderActiveStart: July 31, 2025 Ratna Denton , CITRIX ADMINISTRATOR ACNP-BCOther ProviderActiveStart: July 31, 2025 Thanh Paris [...] ProviderActiveStart: July 31, 2025 Lissett Burdick , SWIMMING COACH OR INSTRUCTOR-BCOther ProviderActiveStart: July 31, 2025 Team Status: Active Member Role Status Dates Sulaiman Feldman , DO Primary Care Provider Active Start: August 07, 2025 Alfonso Antunez , DOAdmit ProviderActiveStart: August 07, 2025 Donna Kelleyther ProviderActiveStart: August 07, 2025 Sivan Francois DOOther ProviderActiveStart: August 07, 2025 Reno Hubbard MDOther ProviderActiveStart: August 07, 2025 Thanh Kenney DOOther ProviderActiveStart: August 07, 2025 Neville M Kapler , DOOther ProviderActiveStart: August 07, 2025 Bella Cano , APRNOther ProviderActiveStart: August 07, 2025 Alejandra Montenegro , VDQH-DRL-QXhffs ProviderActiveStart: August 07, 2025 Ratna Denton , CITRIX ADMINISTRATOR ACNP-BCOther ProviderActiveStart: August 07, 2025 Thanh Paris [...] ProviderActiveStart: August 07, 2025 Lissett Burdick , SWIMMING COACH OR INSTRUCTOR-BCOther ProviderActiveStart: August 07, 2025 Kiko Maldonado MDOther ProviderActiveStart: August 07, 2025 Team Status: Active Member Role Status Dates Sulaiman Feldman DO Primary Care Provider Active Start: August 14, 2025 Alfonso Antunez DOAdmit ProviderActiveStart: August 14, 2025 Deb Bartholomew MDOther ProviderActiveStart: August 14, 2025 Donna Hughes ProviderActiveStart: August 14, 2025 Sivan Francois DOOther ProviderActiveStart: August 14, 2025 Reno Hubbard MDOther ProviderActiveStart: August 14, 2025 Christopher M Pablito , DOOther ProviderActiveStart: August 14, 2025 Neville Bush , DOOther ProviderActiveStart: August 14, 2025 Bella Cano , APRNOther ProviderActiveStart: August 14, 2025 Alejandra Scarlett Montenegro , VPZJ-LJS-YOrszm ProviderActiveStart: August 14, 2025 Miko Montalvo MDOther [...] THE PRIMARY CLINICAL RECORDS. [facility] provides no warranty or guarantee of the accuracy or completeness of information in this document.
--- OUTSIDE RECORDS SUMMARY | 2025-10-05 08:14 | XMS_ITS | Clinical Summary ---
Author Organization [facility] Address [address] [place] [address] Care Team Providers Care Agricultural Education Professor Name Role Phone Thanh Kenney DO Unavailable [phone] Social History Tobacco UseTypesPacks/DayYears UsedDateSmoking Tobacco: Never AssessedSex and Gender InformationValueDate RecordedSex Assigned at BirthNot on fileLegal Sex Male11/27/2024 2:37 PM ESTGender IdentityNot on fileSexual OrientationNot on file Plan of Treatment Not on file Insurance * Guarantor: Marbin Trujillo EAccount TypeRelation to PatientDate of BirthPhone Billing AddressPersonal/CmmaiaSxop1960 [facility] [id number] Care Teams Team MemberRelationshipSpecialtyStart DateEnd Date Thanh Kenney DO [address] [place] [id number] Referring PhysicianNeurology1
--- OUTSIDE RECORDS SUMMARY | 2025-10-05 08:14 | XMS_ITS ---
Author Organization [facility] enter Care Team Providers Care Box Gluer Name Role Phone Maggie Marcial Unavailable Unavailable Canadelfo, Mayra Unavailable Unavailable Leanna, Oral Unavailable Unavailable Lamcaj, Manjobeto Unavailable Unavailable Allergies and adverse reactions No Known Allergies Care Team Name Role Address Phone Organization Dates Oral Ram PCP [address], [place], [address], [place]Office[place] : [facility] 10/01/2025 - 10/01/2025 Maggie Marcial [address], [place], [address], [place]Office[place] : [facility] 10/01/2025 - 10/01/2025 Mayra Lr [address], [place], [address], [place]Office[place] : [facility] 10/01/2025 - 10/01/2025 Luís Russell [address], [place], [address], [place] (Office): [facility] 10/01/2025 - 10/01/2025 Encounters Encounter Type Code Code System Description Performer Discharge Disposition Service Delivery Location Date Ambulatory Encounter CPT Code = [id number] Acute exacerbation of chronic obstructive pulmonary disease [facility] Address: [address] [place], [address], [facility]. 09/30 Ambulatory Encounter CPT Code = [id number] Chronic hypoxemic respiratory failure [facility] Address: [address] [place], [address], [facility]. 09/30 Ambulatory Encounter CPT Code = [id number] Nicotine dependence [facility] Address: [address] [place], [address], [facility]. 09/30 Ambulatory Encounter CPT Code = [id number] Alcohol intoxication [facility] Address: [address] [place], [address], [facility]. 09/30 Ambulatory Encounter CPT Code = [id number] Atherosclerosis of coronary artery without angina pectoris [facility] Address: [address] [place], [address], [facility]. 09/30 Ambulatory Encounter CPT Code = [id number] Hypothyroidism [facility] Address: [address] [place], [address], [facility]. 09/30 Ambulatory Encounter CPT Code = [address] Opioid abuse [facility] Address: [address] [place], [address], [facility]. 09/30 Ambulatory Encounter CPT Code = [id number] Stimulant abuse [facility] Address: [address] [place], [address], [facility]. 09/30 Ambulatory Encounter CPT Code = [id number] Cocaine abuse [facility] Address: [address] [place], [address], [facility]. 09/30 Ambulatory Encounter CPT Code = [id number] Disorder of brain [facility] Address: [address], [place], [address] , [facility]. 09/30 Goals Section Goals Description Status Target Date Resident will be able to art iculate the risks of continued drug use. Active 12/30/2025 Resident will have improved or maintain current skin status through next review date Active 12/30/2025 Resident will maintain current level of function Active 12/30/2025 Resident will not experience any increase in signs and symptoms of mood disturbance. Active 12/30/2025 Resident will not sustain ma janneth injury related to falls through review date Active 12/30/2025 Resident will report decreas es feelings of social isolation by next review Active 12/30/2025 Resident will utilize nicotine products in a saf e manner Active 12/30/2025 Resident will verbalize / co mmunicate an understanding of the discharge plan Active 12/30/2025 Immunizations Immunization Status Vaccine Details Vaccine Code CodeSystem Date Notes Fluzone cancelled Influenza, split virus, trivalent, injectable, preservative free 140 CVX created date: 10/01/2025 consent date: 10/01/2025 Educated by on 10/01/2025 Medications Section Medication Name Status Code CodeSystem Dose Route Frequency Admin Type Sig Text Start Date End Date Indication Tuberculin PPD Solution active 0.1 ml Intrad ermal one time a day Routin e Injec t 0.1 ml intra derma lly one time a day for R/O TB for 1 Day AND Injec t 0.1 ml intra derma lly one time a day for R/O TB for 1 Day 10/02 R/O TB 0.1 ml Intrad ermal one time a day Routin e Injec t 0.1 ml intra derma lly one time a day for R/O TB for 1 Day AND Injec t 0.1 ml intra derma lly one time a day for R/O TB for 1 Day 10/02 R/O TB QUEtiapine Fumarate Oral Tablet 50 MG active 17806 7 RXNORM 50 mg Oral at bedtime Routin e Give 50 mg by mouth at bedti me for MDD 2024 - MDD Keppra Oral Tablet 500 MG active 81849 6 RXNORM 500 mg Oral two times a day Routin e Give 500 mg by mouth two times a day for epile psy 2024 - epilepsy AmLODIPine Besylate Tablet 10 MG active 55794 5 RXNORM 1 table t Oral one time a day Routin e Give 1 table t by mouth one time a day for HTN 2024 - HTN Levothyroxi ne Sodium Oral Tablet 137 MCG active 72380 0 RXNORM 137 mcg Oral in the morning Routin e Give 137 mcg by mouth in the morni ng for hypot hyroi dism 2024 - hypothyroid ism Clopidogrel Bisulfate Oral Tablet 75 MG active 83607 2 RXNORM 75 mg Oral one time a day Routin e Give 75 mg by mouth one time a day for ather oscle rotic heart disea se witho ut angin a 2024 - atheroscler otic heart disease without angina Gabapentin Oral Tablet 800 MG active 97389 4 RXNORM 800 mg Oral three times a day Routin e Give 800 mg by mouth three times a day for pain 2024 - pain Lipitor Oral Tablet 80 MG active 48739 5 RXNORM 80 mg Oral at bedtime Routin e Give 80 mg by mouth at bedti me for HLD 2024 - HLD Metoprolol Tartrate Oral Tablet 25 MG active 49249 4 RXNORM 25 mg Oral two times a day Routin e Give 25 mg by mouth two times a day for HTN 2024 - HTN Aspirin Low Dose Oral Tablet Chewable 81 MG active 81 mg Oral one time a day Routin e Give 81 mg by mouth one time a day for ather oscle rotic coron nikki disea se 2024 - atheroscler otic coronary disease Ziprasidone HCl Oral Capsule 20 MG active 54644 6 RXNORM 20 mg Oral in the morning Routin e Give 20 mg by mouth in the morni ng for bipol ar disor kaila 2024 - bipolar disorder predniSONE Oral Tablet 10 MG active 98211 5 RXNORM 10 mg Oral one time a day Routin e Give 10 mg by mouth one time a day for infec tion for 7 Days 10/08 infection traMADol HCl Oral Tablet 50 MG active 90440 3 RXNORM 1 table t Oral every 8 hours Routin e Give 1 table t by mouth every 8 hours for low back pain D/C this order when Subox one is avail able 2024 - low back pain Insurance Providers Plan of Treatment Section Interventions Intervention Code Code System Display Name Proposed D ate Problems Problem # Description Date of onset Resolved Date Code CodeSystem Concern Status 1 ALCOHOL ABUSE WITH INTOXICATION, UNCOMPLICATED 09/30/[address] active 2 ATHEROSCLEROTIC HEART DISEASE OF [place] CORONARY ARTERY WITHOUT ANGINA PECTORIS 09/30/[address] active 3 CHRONIC OBSTRUCTIVE PULMONARY DISEASE WITH (ACUTE) EXACERBATION 09/30/[address] active 4 CHRONIC RESPIRATORY FAILURE WITH HYPOXIA 09/30/[address] active 5 COCAINE ABUSE WITH INTOXICATION, UNCOMPLICATED 09/30/[address] active 6 HYPOTHYROIDISM, UNSPECIFIED 09/30/[address] active 7 NICOTINE DEPENDENCE, CIGARETTES, UNCOMPLICATED 09/30/[address] active 8 OPIOID ABUSE WITH WITHDRAWAL 09/30/[address] active 9 OTHER SPECIFIED DISORDERS OF BRAIN 09/30/[address] active 10 OTHER STIMULANT ABUSE WITH UNSPECIFIED STIMULANT-INDUCED DISORDER 09/30/[address] active Reason for Referral No Reasons for Referral Entered Social History Social History Observation Description Start Date End Date Code Code System Current Smoking Status Tobacco smoking consumption unknown 042324022 SNOMED CT Sex Assigned At Male 1960 [address] [facility] Gender Identity Sexual Orientation Vital Signs Code Code System Vitals Name Values and Units Timing Information 66679-2 LOINC Weight Kftgw=756.1 Units=Lbs 9279-1 LOINC Respiratory Rate Value=18.0 Units=/m in 10/01/2025 8462-4 LOINC Blood Pressure-Diastolic Value=75 Un its=mmHg 10/01/2025 8480-6 LOINC Blood Pressure-Systolic Blksa=727 Un its=mmHg 10/01/2025 8310-5 LOINC Body Temperature Value=97.7 Units= F 10/01/2025 8867-4 LOINC Heart rate Value=86.0 Units=/min 77932-2 LOINC O2 % BldC Oximetry Value=95.0 Units= % 10/01/2025
[2025-10-05 08:17] LABS: Hematocrit 36.3 % (42.0-54.0); Hemoglobin 11.6 g/dL (14.0-18.0); Immature Granulocytes Abs Auto 0.03 10^3/uL (0.00-0.03); Immature Granulocytes Pct Auto 0.4 % (0.0-0.5); Lymphocytes Absolute Auto 0.7 10^3/uL (1.2-3.8); Mean Corpuscular HGB Conc 32.0 g/dL (29.9-35.2); Mean Corpuscular Hemoglobin 31.3 pg (25.9-34.0); Mean Corpuscular Volume 97.8 fL (80.0-94.0); Platelet Count 221 10^3/uL (150-450); Red Blood Count 3.71 10^6/uL (4.70-6.10); White Blood Count 7.1 10^3/uL (4.0-11.0)
[2025-10-05 08:23] LABS: Glucose Urine UA 100 mg/dL (NEGATIVE)
[2025-10-05] MEDS: DILTIAZEM HCL 25 MG/5 ML VIAL 10 MG IV ×2 (08:26→08:54)
[2025-10-05 08:34] LABS: Cannabinoid Screen Urine NEGATIVE (NEGATIVE); Methamphetamines Screen Urine NEGATIVE (NEGATIVE); Tricyclic Antidepressant Urine NEGATIVE (NEGATIVE)
[2025-10-05 08:36] LABS: Cast Seen? NONE SEEN #/LPF (NONE SEEN); Crystals Seen? None Seen #/HPF (None Seen); Urine Culture Indicated NO
[2025-10-05 08:56] LABS: Alanine Aminotransferase 51 U/L (16-63); Albumin Globulin Ratio 1.1; Albumin Level 3.9 g/dL (3.4-5.0); Alkaline Phosphatase 101 U/L (46-116); Anion Gap 10.7; Aspartate Amino Transferase 26 U/L (15-37); Blood Urea Nitrogen 24.0 mg/dL (7.0-18.0); Calcium 9.2 mg/dL (8.5-10.1); Carbon Dioxide 34.3 mmol/L (21.0-32.0); Chloride 100 mmol/L (98-107); Estimated GFR (African America >60 (>=60 mL/min/1.73m^2); Estimated GFR (Non-African Ame >60 (>=60 mL/min/1.73m^2); Globulin 3.6 g/dL; Glucose 115 mg/dL (74-106); Potassium 4.0 mmol/L (3.5-5.1); Sodium 141 mmol/L (136-145); Total Protein 7.5 g/dL (6.4-8.2)
--- NOTE | 2025-10-05 09:21 | XR_ITS ---
The [address] [address] Patient Name: AARON OLIVAREZ MRN: [id number] date: 1960 Sex: M Assigned Patient Location: ER Current Patient Location: ER Accession/Order Number: [id number] Exam Date: 10/05/2025 09:15 Report Date: 10/05/2025 10:23 At the request of: MALORIE CASTAÑEDA MD Procedure: XR chest 1V Single view chest: CLINICAL HISTORY: post intubation COMPARISON: Chest performed earlier. FINDINGS: ET tube in satisfactory position. Enteric tube below the level of the diaphragm. Heart is normal in size. No consolidation pneumothorax pleural effusion or free air. XR/XR chest 1V IMPRESSION: ET TUBE IN SATISFACTORY POSITION. Impression dictated by: Patricio Velázquez Jr. DJeremiOJeremi 10/05/2025 10:23 AM [facility] Electronically authenticated by: [id number] Y Date: 10/05/2025 10:23
[2025-10-05] MEDS: ETOMIDATE 20 MG/10 ML VIAL IVP (10:09)
[2025-10-05] MEDS: 0.9 % SODIUM CHLORIDE 1,000 ML 1000 ML IV (10:09)
[2025-10-05] MEDS: MIDAZOLAM HCL 2 MG/2 ML VIAL 4 MG IV (10:09)
--- NOTE | 2025-10-05 10:25 | PC.NURSE ---
[address] Rodriguez and RN at bedside. Seizure lasted 45 sec. pt was moved to ER room 5. 0847 5mg Diazepam given per verbal order, 2nd IV line placed in right AC. Pharmacy called to bedside to assist with medications for intubation. 0850 intubation set up with Dr. Rodriguez, RT, Pharmacy and RN. 0855 Ramirez catheter placed by RN cottage supervisor. 0855 100mcg Fentanyl, 4mg versed, 20mg etomidate given. 0857 1st attempt for intubation. 0859 100mcg of propofol given. 0903 2nd intubation attempt. 0907 propofol spiked and drip initiated at 5mcg/kg/min, normal saline hung with pressure bag. 0908 pt intubated, 7.5 size ET tube 28 at lip. 0913 propofol 100mcg bolus given per verbal order from Dr. Rodriguez. 0913 OG tube attempted. 0916 2nd OG attempt. 0917 NG tube placed, in right nare 80 at nare. placement confirmed with air bolus and xray. 0927 propofol titrated to 10mcg/kg/min. 0930 xray for ET done. 0934 ET pulled back 2cm 26 at lip. 0937 ET tube secured.
[2025-10-05 10:35] LABS: Allen Test POSITIVE (POSITIVE); HCO3 ABG 30.3 mmol/L (22.0-26.0); Oxygen Saturation ABG 98.9 %; PO2 ABG 136.0 mmHg (80.0-100.0)
[2025-10-05 10:36] LABS: ABG PCO2 83.7 mmHg (35.0-45.0); O2 Mode VENT
[2025-10-05 10:37] LABS: Puncture Site R RADIAL; Rate 20
[2025-10-05 10:38] LABS: Pos End Expiratory Pressure 5
--- NOTE | 2025-10-05 10:38 | ED.AMS1 ---
HPI - Altered Mental Status General Chief Complaint: Altered Mental Status Stated Complaint: SEIZURE Time Seen by Provider: 10/05/25 07:48 Mode of arrival: ambulance History of Present Illness HPI narrative: The patient is a 65-year-old male who presented to the ER by the EMS after he was dropped at a certain person house who called the EMS because the patient is short of breath and just had a seizure, upon arrival to the EMS the patient confused and postictal and he also was short of breath with pulse ox in upper 80s pulse ox and he was provided with a breathing treatment It was noted upon arrival that the patient still struggling to breathe he was already provided with a Solu-Medrol, patient is very well-known to us he does not make any full send sentences mostly cursing, the patient did receive 2 breathing treatment here in the ER while he is denying any complaint but he just keeps saying that he cannot do this anymore, with no elaboration and that symptoms Patient did not have any chest pain was in respiratory distress using his accessory muscle Related Data Home Medications ?Medication ?Instructions ?Recorded ?Confirmed quetiapine 50 mg tablet 50 mg PO .qhs 09/09/25 09/10/25 ziprasidone HCl 20 mg capsule 20 mg PO .qd 09/09/25 09/10/25 Previous Rx's ?Medication ?Instructions ?Recorded amlodipine 5 mg tablet 5 mg PO QD #30 tabs 09/10/25 aspirin 81 mg chewable tablet 81 mg PO .qd #30 tabs 09/10/25 atorvastatin 80 mg tablet 80 mg PO .qhs #30 tabs 09/10/25 clopidogrel 75 mg tablet 75 mg PO .qd #30 tabs 09/10/25 levetiracetam 1,000 mg tablet 1,000 mg PO BID 1 month #60 tabs 09/10/25 (Keppra) metoprolol tartrate 25 mg tablet 25 mg PO BID #60 tabs 09/10/25 Allergies Allergy/AdvReac Type Severity Reaction Status Date / Time No Known Drug Allergies Allergy Verified 09/09/25 16:37 Review of Systems ROS Status of ROS 10 or more systems reviewed and unremarkable except as noted in history and below [facility] Medical History (Updated 10/05/25 @ 10:45 by Essence Rodriguez MD) Methamphetamine abuse ?F15.10 - Other stimulant abuse, uncomplicated (ICD-10) Drug abuse ?F19.10 - Other psychoactive substance abuse, uncomplicated (ICD-10) Breakthrough seizure ?G40.919 - Epilepsy, unspecified, intractable, without status epilepticus (ICD-10) 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) Epileptic seizure ?G40.909 - Epilepsy, unspecified, not intractable, without status epilepticus (ICD-10) COPD (chronic obstructive pulmonary disease) ?J44.9 - Chronic obstructive pulmonary disease, unspecified (ICD-10) Social History Highest level of school completed/degree received: don't know Little interest or pleasure in doing things: not at all Feeling down, depressed, or hopeless: not at all Exam Narrative Exam Narrative: Nurses notes and vital signs reviewed and patient within respiratory distress General: Patient is covered with bruises in his lower extremities mostly old Skin: Warm, dry, no pallor noted. No rash. Head: Normocephalic, atraumatic. Neck: Supple, non-tender. Eye: Pupils are equal, round and EOMI. No scleral icterus. Ears, Nose, Mouth, and Throat: No tongue laceration or bleeding Cardiovascular: irregular Rate and Rhythm without murmur, gallop or rub. 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 No CVA tenderness Musculoskeletal: normal ROM, no calf or popliteal tenderness, no lower extremity edema/swelling GI: Abdomen is soft, non-distended. Normal bowel sounds. No masses appreciated. No tenderness to palpation. No rebound, guarding, or rigidity noted. Neurological: The patient is alert and is not oriented,. No cranial nerve dysfunction observed. No truncal ataxia. Moves all extremities. Constitutional Vital Signs, click to edit/add: Last Vital Signs Pulse 62 10/05/25 10:09 Resp 20 10/05/25 10:09 BP 148/104 H 10/05/25 08:54 Pulse Ox 100 10/05/25 10:09 O2 Del Method Mechanical Ventilator 10/05/25 10:09 O2 Flow Rate 2 10/05/25 08:21 FiO2 0.50 10/05/25 10:00 Course Vital Signs Vital signs: Vital Signs Pulse Rate 148 H 10/05/25 07:47 Respiratory Rate 24 H 10/05/25 07:47 Blood Pressure 160/114 H 10/05/25 07:47 Pulse Oximetry 89 L 10/05/25 07:47 Oxygen Delivery Method Room Air 10/05/25 07:47 Pulse Rate 62 10/05/25 10:09 Respiratory Rate 20 10/05/25 10:09 Blood Pressure 148/104 H 10/05/25 08:54 Pulse Oximetry 100 10/05/25 10:09 Oxygen Delivery Method Mechanical Ventilator 10/05/25 10:09 Oxygen Delivery Flow Rate 2 10/05/25 08:21 Fraction of Inspired Oxygen 0.50 10/05/25 10:00 MDM - Altered Mental Status MDM Narrative Medical decision making narrative: Upon arrival the patient was found in respiratory distress mostly secondary to OPD he was started on breathing treatment by the EMS as well as Solu-Medrol provided him with breathing treatments twice after which he was still tachypneic and the plan was to put him on BiPAP and he was still awake and saturating above 95% It was few minutes into the ER when the patient started having a seizure mostly tonic seizure with extension of the neck to the left side as well as rolling his eyes backward and extension of his upper and lower extremities this seizure continued for almost 45 seconds and after that the patient remained postictal With the fact that the patient have known history of hypercapnic respiratory failure with multiple intubation before and the fact that we are just sedating him for the seizure with the tachypnea and the respiratory distress the patient will need to be intubated At the bedside the respiratory therapist as well as the pharmacist and the patient was provided with etomidate 20 mg as well as Versed 4 mg and propofol 1 bolus dose of 1 mg in addition to fentanyl 100 mcg After the medication provided the patient was intubated with 7.5 cm ET tube The patient intubation was not traumatic but it was noted that the patient definitely have some chronic changes in his airway because of multiple intubation from before The patient also had to be suctioned multiple times he also had NG tube placed and the chest x-ray after that initially was showing that the ET tube being pushed forward and then the patient had the ET tube pulled 2 cm after which the x-ray shows a satisfactory ET tube placement and NG tube below the diaphragm The patient also provided with 1 dose of Keppra 1500 mg iv Initially the patient had his A-fib RVR to be controlled with Cardizem he was provided a total dose of 20 mg IV after which he is back to sinus after the intubation The patient also had a Ramirez catheter placed he had multiple episodes of incontinence The patient also had an ABG done after intubation right away and it showed that the patient pH is 7.167 and that the patient also had a pO2 of 136 and pCO2 is 83.7 bicarb is 30.3 The patient vent settings was tidal volume 350 respirate rate of 20 PEEP of 5 and FiO2 50% Right now we will repeat another ABGs at 11:45 AM The patient case was discussed with and he accepted the patient I did also deliver to him my concern that the patient is not competent to make his own decision as he has been presenting here to the ER multiple time during which the patient is intubated on multiple attempts with a similar presentation of him not taking his medication and using drugs and not even being able to show any competence sign in my evaluation. But the patient evaluation usually is altered by the fact that he is actively having another medical issue or just using drugs and this evaluation need to be done when the patient is sober and more awake Lab Data Labs: Lab Results 10/05/25 10/05/25 10/05/25 Range/Units 07:59 08:09 10:17 WBC 7.1 (4.0-11.0) 10^3/uL RBC 3.71 L (4.70-6.10) 10^6/uL Hgb 11.6 L (14.0-18.0) g/dL Hct 36.3 L (42.0-54.0) % MCV 97.8 H (80.0-94.0) fL MCH 31.3 (25.9-34.0) pg MCHC 32.0 (29.9-35.2) g/dL RDW 15.8 H (11.0-15.0) % Plt Count 221 (150-450) 10^3/uL MPV 8.9 L (9.5-13.5) fL Neut % (Auto) 82.3 H (43.0-75.0) % Lymph % (Auto) 9.2 L (20.5-60.0) % [place] % (Auto) 7.2 (1.7-12.0) % Eos % (Auto) 0.6 L (0.9-7.0) % Baso % (Auto) 0.3 (0.2-2.0) % Neut # (Auto) 5.8 (1.4-6.5) 10^3/uL Lymph # (Auto) 0.7 L (1.2-3.8) 10^3/uL [place] # (Auto) 0.5 (0.3-0.8) 10^3/uL Eos # (Auto) 0.0 (0.0-0.7) 10^3/uL Baso # (Auto) 0.0 (0.0-0.1) 10^3/uL Abs Immat Gran (auto) 0.03 (0.00-0.03) 10^3/uL Imm/Tot Granulo (auto) 0.4 (0.0-0.5) % Puncture Site R radial ABG pH 7.167 L* (7.350-7.450) ABG pCO2 83.7 H* (35.0-45.0) mmHg ABG pO2 136.0 H (80.0-100.0) mmHg ABG HCO3 30.3 H (22.0-26.0) mmol/L ABG O2 Saturation 98.9 % ABG Base Excess 1.7 (-2.0-2.0) mmol/L Johnny Test Positive (POSITIVE) Vent Mode Ac FiO2 50 % Expiratory Pressure 5 Tidal Volume 350 Sodium 141 (136-145) mmol/L Potassium 4.0 (3.5-5.1) mmol/L Chloride 100 (98-107) mmol/L Carbon Dioxide 34.3 H (21.0-32.0) mmol/L Anion Gap 10.7 BUN 24.0 H (7.0-18.0) mg/dL Creatinine 0.93 (0.70-1.30) mg/dL Est GFR ( Amer) >60 (>=60 mL/min/1.73m^2) Est GFR (Non-Af Amer) >60 (>=60 mL/min/1.73m^2) BUN/Creatinine Ratio 25.8 Glucose 115 H (74-106) mg/dL Calcium 9.2 (8.5-10.1) mg/dL Total Bilirubin 1.2 H (0.2-1.0) mg/dL AST 26 (15-37) U/L ALT 51 (16-63) U/L Alkaline Phosphatase 101 (46-116) U/L Troponin I High Sens 36.0 (4.0-76.1) pg/mL Total Protein 7.5 (6.4-8.2) g/dL Albumin 3.9 (3.4-5.0) g/dL Globulin 3.6 g/dL Albumin/Globulin Ratio 1.1 Urine Color Lt. yellow (YELLOW) Urine Clarity Clear (CLEAR) Urine pH 7.0 (5.0-9.0) Ur Specific [place] 1.020 (1.005-1.025) Urine Protein 30 A (NEG/TRACE) mg/dL Urine Glucose (UA) 100 A (NEGATIVE) mg/dL Urine Ketones Negative (NEGATIVE) mg/dL Urine Occult Blood Trace-i (NEGATIVE) Urine Nitrite Negative (NEGATIVE) Urine Bilirubin Negative (NEGATIVE) Urine Urobilinogen 0.2 (0.2-1.0) EU/dL Ur Leukocyte Esterase Negative (NEGATIVE) Urine RBC 0-2 (0-2) #/HPF Urine WBC 0-2 A (NONE SEEN) #/HPF Ur Squamous Epith Cells None seen (NONE/RARE) #/LPF Urine Crystals None seen (None Seen) #/HPF Urine Bacteria Trace A (NONE SEEN) #/HPF Urine Casts None seen (NONE SEEN) #/LPF Urine Mucus None seen (NONE SEEN) Ur Culture Indicated? No Urine Opiates Screen Negative (NEGATIVE) Ur Buprenorphine Scrn Positive A (NEGATIVE) Ur Oxycodone Screen Negative (NEGATIVE) Urine Methadone Screen Negative (NEGATIVE) Ur Barbiturates Screen Negative (NEGATIVE) U Tricyclic Antidepress Negative (NEGATIVE) Ur Phencyclidine Scrn Negative (NEGATIVE) Ur Amphetamines Screen Negative (NEGATIVE) U Methamphetamines Scrn Negative (NEGATIVE) U Benzodiazepines Scrn Negative (NEGATIVE) Urine Cocaine Screen Negative (NEGATIVE) U Cannabinoids Screen Negative (NEGATIVE) Critical Care Time Critical Care Time Critical Care Time: Yes (60 min ) Total Critical Care Time: 60 Attestation: Full evaluation for the patient before he actually Was intubated after he initially presented to us with respiratory distress as well as multiple presentation to evaluate his breathing after that he also had a seizure which at that time he need a bedside evaluation as well and I had to stay there to make sure that I order the proper medication and make sure that the patient is protecting his airway, then the patient was moved to the critical care room where he was intubated and there was multiple attempts to fix the ET tube because the patient multiple intubation in the last few weeks was enough to cause some chronic changes to his airway that causing the cough to be leaking although it is intact but there is some leak around It had to be replaced and pushed forward with another 7.5 ET tube with an x-ray also reordered and reevaluated Discharge Plan Discharge Chief Complaint: Altered Mental Status Clinical Impression: Medical non-compliance, Asthma exacerbation in COPD, Acute hypercapnic respiratory failure, Seizure Patient Disposition: [facility]
--- NOTE | 2025-10-05 10:44 | ECG_ITS ---
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 Measurements Intervals [place] Rate: 61 P: 81 SD: 170 QRS: 75 QRSD: 84 T: 90 QT: 408 QTc: 410 Interpretive Statements 1100 Sinus rhythm [address] & Twave abnormality 9150 abnormal ECG Compared to ECG 10/05/2025 08:00:12 Atrial fibrillation no longer present ST (T wave) deviation still present Electronically Signed On 10-05-2025 20:30:09 EST by JACKY SIU M.D.
[2025-10-05] MEDS: DIAZEPAM 10 MG/2 ML SYRINGE 5 MG IV (11:14)
[2025-10-05] MEDS: PROPOFOL 200 MG/20 ML VIAL IVP (11:15)
[2025-10-05] MEDS: FENTANYL CITRATE/PF 100 MCG/2 ML VIAL IV (11:15)
[2025-10-05] MEDS: PROPOFOL 1,000 MG/100 ML VIAL 5.171 MG IV (11:17)
[2025-10-05 12:35] LABS: Allen Test POSITIVE (POSITIVE); HCO3 ABG 31.4 mmol/L (22.0-26.0); Oxygen Saturation ABG 97.3 %; PO2 ABG 98.0 mmHg (80.0-100.0)
[2025-10-05 12:36] LABS: Pos End Expiratory Pressure 5; Puncture Site RR; Rate 20
[2025-10-05 12:38] LABS: ABG PCO2 67.9 mmHg (35.0-45.0)
== END 2025-10-05 14:07 | disposition short-term general hospital (02) ==
PROVIDERS: Emergency Provider Emergency Medicine
DX: J96.02 Acute respiratory failure with hypercapnia (principal); R56.9 Unspecified convulsions; J45.901 Unspecified asthma with (acute) exacerbation; J44.9 Chronic obstructive pulmonary disease, unspecified; Z91.199 Patient's noncompliance with other medical treatment and regimen due to unspecified reason
CPT/HCPCS: 31500; 36415; 36600; 71045; 80053; 80307; 81001; 82805; 84484; 85025; 93005; 94002; 94640; 96365; 96366; 96367; 96375; 96376; 99285; J1953; J2250; J2704; J3010; J3360